=== PATIENT | female | born 1975 | race Caucasian/White ===

== ENCOUNTER → 2018-04-14 16:03 | Outpatient (CLI) | payer BC, SELFPAY ==
[2018-04-14 16:07] LABS: Microscopic, Urine URINE MICROSCOPIC (MICROSCOPIC)
[2018-04-14 16:38] LABS: Appearance,Urine CLEAR (Clear); Bilirubin,Urine Negative (Negative); Blood, Urine 3+ (Negative); Color,Urine YELLOW (Yellow); Glucose,Urine (UA) Negative (Negative); Ketones,Urine Negative (Negative); Leukocyte Esterase,Urine Negative (Negative); Nitrate,Urine POSITIVE (Negative); Protein,Urine TRACE (Negative); Specific Gravity, Urine 1.025 (1.005-1.030); Urobilinogen,Urine 0.2 EU/dl (0.2)
[2018-04-14 16:50] LABS: Bacteria,Urine 1+ /lpf
[2018-04-14 16:51] LABS: Basophils # 0.1 K/mm3 (0-0.2); Basophils % 0.3 % (0.1-2.0); Eosinophils # 0.2 K/mm3 (0.0-0.4); Hematocrit 44.1 % (37.0-47.0); Hemoglobin 12.9 g/dL (12.2-16.2); Lymphocytes # 3.3 K/mm3 (0.7-4.5); Lymphocytes % 20.6 K/mm3 (10-50); Mean Corpuscular HGB Conc 29.2 g/dL (31.8-35.4); Mean Corpuscular Volume 78.9 fl (81-99); Mean Platelet Volume 6.6 fl (7.4-10.4); Monocytes # 0.6 K/mm3 (0.1-1.0); Monocytes % 3.6 % (1.7-9.3); Neutrophils # 11.8 K/mm3 (1.8-7.8); Neutrophils % 74.5 % (37.0-80.0); Platelet Count 406 K/mm3 (142-424); Red Blood Count 5.59 M/mm3 (4.20-5.40); White Blood Count 15.9 K/mm3 (4.8-10.8)
[2018-04-14 16:53] LABS: MANUAL DIFFERENTIAL MANUAL DIFFERENTIAL (MANUAL DIFF)
[2018-04-14 17:42] LABS: Anion Gap 13.6 mEq/L (5-15); Blood Urea Nitrogen 15 mg/dL (7-18); Calcium 9.4 mg/dL (8.5-10.1); Carbon Dioxide 28 mmol/L (21.0-32.0); Chloride 105 mmol/L (98-107); Creatinine,Serum 0.82 mg/dL (0.55-1.02); Estimated Glomerular Filt Rate 76 ml/min (>60); Free T4 (Free Thyroxine) 0.99 ng/dl (0.76-1.46); GFR (African American) 92 ML/MIN (>60); Glucose 113 mg/dL (74-106); Potassium 4.6 mmoL/L (3.5-5.1); Sodium 142 mmol/L (136-145); Thyroid Stimulating Hormone 2.17 uIU/ml (0.358-3.740)
[2018-04-14 19:46] LABS: Eosinophils % 1 % (0-3); Lymphocytes % 19 % (10-50); Monocytes % 4 % (2-9); Neutrophils % 73 % (42-76); Platelet Estimate Normal; RBC Morphology Normal; Total Cells Counted 100
== END ==
PROVIDERS: Visit Provider Internal Medicine
DX: R53.1 Weakness (principal); R42 Dizziness and giddiness; R00.2 Palpitations; R10.9 Unspecified abdominal pain
CPT/HCPCS: 36415; 80048; 81001; 82533; 84439; 84443; 85007; 85025

== ENCOUNTER → 2018-05-12 09:48 | Outpatient (CLI) | payer BC, SELFPAY ==
--- NOTE | 2018-05-12 09:51 | US_ITS ---
US kidney retroperitoneal comp HISTORY: ITS.REASON: RT FLANK PAIN, HEMATURIA ORDERING PHYSICIAN: Juarez Griffin PATIENT AGE: 43 years Comparison: ) 08/16/2017 FINDINGS: Studies compared to previous CT scan abdomen pelvis noncontrast 08/16/2017 RIGHT KIDNEY:Unremarkable. Normal size measuring 11.3 x 4.9 x 5.9 cm appearing sonographically normal except for a nonobstructing calculus upper pole LEFT KIDNEY:Unremarkable except for a nonobstructing calculus lower pole.. Normal size measuring 12.0 x 5.4 x 6.4 cm. Cortical thickness is 1.2 cm. Left kidney appears sonographically normal. OTHER FINDINGS: The spleen appears normal. IMPRESSION: Grossly normal-appearing kidneys with bilateral nontracking calculi noted
== END ==
PROVIDERS: PCP Internal Medicine; Visit Provider Internal Medicine
DX: R31.29 Other microscopic hematuria (principal); R10.9 Unspecified abdominal pain
CPT/HCPCS: 76770

== ENCOUNTER → 2018-05-26 09:51 | Outpatient (CLI) | payer BC, SELFPAY ==
--- NOTE | 2018-05-26 09:59 | XR_ITS ---
XR chest 2V HISTORY: ITS.REASON: ASTHMA FLARE, HEMOPTYSIS ORDERING PHYSICIAN: Juarez Griffin PATIENT AGE: 43 years COMPARISON: 02/05/2018 FINDINGS: There is mild prominence of the cardiac silhouette with mild prominence of left ventricle. No CHF. A loop recorder device is present. No lobar consolidation or collapse. No effusions. No acute bony anomalies. IMPRESSION: Mild cardiomegaly otherwise negative
== END ==
PROVIDERS: PCP Internal Medicine; Visit Provider Internal Medicine
DX: J45.909 Unspecified asthma, uncomplicated (principal); R04.2 Hemoptysis
CPT/HCPCS: 71046

== ENCOUNTER → 2018-06-10 15:22 | Outpatient (CLI) | payer BC, SELFPAY ==
[2018-06-10 15:47] LABS: Troponin I < 0.02 ng/ml (0.00-0.06)
== END ==
PROVIDERS: Visit Provider Internal Medicine
DX: R07.89 Other chest pain (principal); J45.909 Unspecified asthma, uncomplicated; I10 Essential (primary) hypertension
CPT/HCPCS: 36415; 84484; 93005

== ENCOUNTER → 2018-07-28 17:10 | Outpatient (REF) | payer BC, SELFPAY | LOC: LAB 17:10 | PROVIDERS: Visit Provider Internal Medicine | DX: N39.0 Urinary tract infection, site not specified (principal) | CPT/HCPCS: 87086 ==

== ENCOUNTER → 2019-04-27 11:02 | Outpatient (CLI) | payer BC, SELFPAY ==
[2019-04-27 11:54] LABS: Anion Gap 13.7 mEq/L (5-15); Blood Urea Nitrogen 13 mg/dL (7-18); Calcium 8.9 mg/dL (8.5-10.1); Carbon Dioxide 31 mmol/L (21.0-32.0); Chloride 101 mmol/L (98-107); Creatinine,Serum 1.01 mg/dL (0.55-1.02); Estimated Glomerular Filt Rate 59 ml/min (>60); GFR (African American) 72 ML/MIN (>60); Glucose 137 mg/dL (74-106); Potassium 4.7 mmoL/L (3.5-5.1); Sodium 141 mmol/L (136-145)
== END ==
PROVIDERS: Visit Provider Nurse Practitioner Family
DX: R06.09 Other forms of dyspnea (principal); R07.89 Other chest pain; R07.9 Chest pain, unspecified; R42 Dizziness and giddiness; R55 Syncope and collapse
CPT/HCPCS: 36415; 80048

== ENCOUNTER → 2019-04-29 13:20 | Outpatient (CLI) | payer BC, SELFPAY ==
--- NOTE | 2019-04-29 13:21 | CA_ITS ---
PROCEDURE: 2-D M-mode and color Doppler study INDICATIONS FOR THE TEST: Chest painX COPD Heart Murmur Tobacco Smoking Palpitations Fatigue SyncopeX EdemaX Hypertension Diabetes Mellitus Rheumatic Fever SOBXDOEXObesityXHyperlipidemia Family History HD Additional History TDS OBESITY PATIENT INFORMATION HEIGHT: 63 WEIGHT:278 GENDER: Female B/P:156/84 2-D/M-MODE INTERPRETATION: 2-D MEASUREMENTS OBSERVED VALUES IN CMS Right Ventricular Dimension (RVDd) 3.5 Interventricular Septum (Thickness)(IVsd) 1.2 Left Ventricular Internal Dimensions(LVIDd) 5.2 Left Ventricular Posterior Wall (Thickness)(LVPWd) 1.2 Aortic Root 3.2 Aortic Cusp Separation 1.9 Left Atrial Dimensions (LAD) 3.5 2D 1. Left atrium is mildly enlarged, left ventricle is normal size, mild concentric left ventricular hypertrophy, visually estimated ejection fraction 55% with no regional wall motion abnormality. 2. The right atrium and right ventricle are mildly enlarged with normal contractility. 3. The aortic valve is minimally thickened and fibrosed. 4. The mitral and tricuspid valvular grossly normal. 5. The pulmonic valve is poorly visualized. 6. No significant pericardial effusion noted. DOPPLER INTERROGATION: Doppler interrogation of the aortic, mitral and tricuspid valvular presence of mild mitral and tricuspid regurgitation, tricuspid regurgitation jet velocity is inadequate for calculation of the right ventricular systolic pressure, grade 1 diastolic dysfunction seen with tissue Doppler evidence of raised left atrial pressure, inferior vena cava is not well visualized. CONCLUSION: 1. Mild biatrial enlargement, normal left ventricular size, mild concentric left ventricular hypertrophy, visually estimated ejection fraction 55% with no regional wall motion abnormality, grade 1 diastolic dysfunction seen with tissue Doppler evidence of raised left atrial pressure. 2. Mild mitral and tricuspid regurgitation. 3. No significant pericardial effusion noted.
== END ==
PROVIDERS: PCP Internal Medicine; Visit Provider Internal Medicine
DX: R06.09 Other forms of dyspnea (principal); R55 Syncope and collapse; R07.89 Other chest pain; R42 Dizziness and giddiness
CPT/HCPCS: 93308

== ENCOUNTER → 2019-11-23 14:57 | Outpatient (CLI) | payer BC, SELFPAY ==
[2019-11-23 15:05] LABS: Basophils # 0.1 K/mm3 (0-0.2); Basophils % 0.6 % (0.1-2.0); Eosinophils # 0.2 K/mm3 (0.0-0.4); Eosinophils % 2.4 % (0.1-12.0); Hematocrit 31.5 % (37.0-47.0); Hemoglobin 10.3 g/dL (12.2-16.2); Lymphocytes # 2.1 K/mm3 (0.7-4.5); Lymphocytes % 25.4 % (10-50); Mean Corpuscular HGB Conc 32.8 g/dL (31.8-35.4); Mean Corpuscular Hemoglobin 27.2 pg (27.0-31.2); Mean Corpuscular Volume 82.8 fl (81-99); Mean Platelet Volume 8.2 fl (7.4-10.4); Monocytes # 0.3 K/mm3 (0.1-1.0); Monocytes % 3.7 % (1.7-9.3); Neutrophils # 5.6 K/mm3 (1.8-7.8); Neutrophils % 67.9 % (37.0-80.0); Platelet Count 345 K/mm3 (142-424); Red Blood Count 3.81 M/mm3 (4.20-5.40); White Blood Count 8.3 K/mm3 (4.8-10.8)
[2019-11-23 15:21] LABS: Anion Gap 14.3 mEq/L (5-15); Blood Urea Nitrogen 11 mg/dL (7-18); Calcium 8.5 mg/dL (8.5-10.1); Carbon Dioxide 28 mmol/L (21.0-32.0); Chloride 106 mmol/L (98-107); Creatinine,Serum 0.87 mg/dL (0.55-1.02); Estimated Glomerular Filt Rate 70 ml/min (>60); GFR (African American) 85 ML/MIN (>60); Glucose 152 mg/dL (74-106); Magnesium 1.7 mg/dL (1.4-2.2); Potassium 4.3 mmoL/L (3.5-5.1); Sodium 144 mmol/L (136-145)
== END ==
PROVIDERS: PCP Internal Medicine; Visit Provider Internal Medicine
DX: R00.0 Tachycardia, unspecified (principal); I10 Essential (primary) hypertension; N92.0 Excessive and frequent menstruation with regular cycle
CPT/HCPCS: 80048; 83735; 85025

== ENCOUNTER → 2019-12-07 13:23 | Outpatient (CLI) | payer BC, SELFPAY ==
--- NOTE | 2019-12-07 13:23 | US_ITS ---
PROCEDURE: US TRANSVAGINAL CLINICAL INDICATION: US T/V- DUB Dysfunctional uterine bleeding, heavy cycles COMPARISON: No exams were available for comparison FINDINGS: UTERUS: 10cm x 7cmx 5cm with a combined endometrial thickness of 18.8mm LEFT OVARY: [id number] with a volume of 9.2ml. RIGHT OVARY: [id number] with a volume of 11.1ml. Multiple nabothian cysts are present. There is moderate thickening of the endometrium and 18 mm. No uterine mass. 2 cm left ovarian cyst with septation. No cul-de-sac fluid IMPRESSION: Bulky uterus with thickened endometrium Dictated by: Vishal Nieto MD 12/07/2019 19:09 Electronically signed by Vishal Nieto MD in [place] 12/07/2019 19:09
== END ==
PROVIDERS: PCP Internal Medicine; Visit Provider Obstetrics & Gynecology
DX: N93.8 Other specified abnormal uterine and vaginal bleeding (principal)
CPT/HCPCS: 76830

== ENCOUNTER 2020-04-17 10:16 | Emergency (ER) | payer OTHER, SELFPAY ==
[2020-04-17] VITALS (8 sets, daily range): BP systolic 98–145; BP diastolic 45–85; PULSE 55–68; RESP 18; TEMP 36.6; O2SAT 93–97; BMI 49.6
--- NOTE | 2020-04-17 10:16 | ECG_ITS ---
APPROVED REPORT Exam: Resting ECG HR:62 bpm ECG Measurements Heart Rate 62 AXES NC 142 P 48 QRSd 82 QRS 33 QT 416 T 39 QTc 422 <Conclusion> Normal sinus rhythm Normal ECG Electronically signed by : Ahsan Chew, 04/18/2020 17:28:20
--- NOTE | 2020-04-17 10:20 | XR_ITS ---
PROCEDURE: XR CHEST PORTABLE CLINICAL HISTORY: cp COMPARISON: CTAC CTA-CHEST from 05/13/2017 CXR2V XR chest 2V from 02/05/2018 CXR2V XR chest 2V from 05/26/2018 Chest from 04/17/2019 FINDINGS: The patient is markedly obese. This is a somewhat poor inspiratory effort however lung colby are clear of infiltrate. There is mild to moderate generalized cardiomegaly however the vascularity is normal and there is no definite pleural fluid. However the left costophrenic angle is somewhat poorly seen due to combination of the enlarged left ventricle and overlying breast shadow. There monitor lines overlying the chest. IMPRESSION: Cardiomegaly, no definite acute chest pathology noted Dictated by: Dr. Josue Lara MD 04/17/2020 10:[address] Josue Lara MD in [place] 04/17/2020 10:36
--- NOTE | 2020-04-17 10:23 | PC.NURSE ---
Rad at bedside
[2020-04-17 10:29] LABS: Basophils # 0.1 K/mm3 (0-0.2); Basophils % 0.3 % (0.1-2.0); Eosinophils # 0.1 K/mm3 (0.0-0.4); Eosinophils % 0.4 % (0.1-12.0); Hematocrit 38.5 % (37.0-47.0); Hemoglobin 12.7 g/dL (12.2-16.2); Lymphocytes # 4.1 K/mm3 (0.7-4.5); Lymphocytes % 22.5 % (10-50); Mean Corpuscular HGB Conc 33.1 g/dL (31.8-35.4); Mean Corpuscular Volume 81.6 fl (81-99); Mean Platelet Volume 8.6 fl (7.4-10.4); Monocytes # 0.7 K/mm3 (0.1-1.0); Monocytes % 3.7 % (1.7-9.3); Neutrophils # 13.1 K/mm3 (1.8-7.8); Platelet Count 377 K/mm3 (142-424); Red Blood Count 4.72 M/mm3 (4.20-5.40); Red Cell Distribution Width 14.5 % (11.5-17.5)
[2020-04-17 10:31] LABS: MANUAL DIFFERENTIAL MANUAL DIFFERENTIAL (MANUAL DIFF)
[2020-04-17 10:33] LABS: Chloride 103 mmol/L (98-107); Potassium 3.9 mmoL/L (3.5-5.1); Sodium 135 mmol/L (136-145)
[2020-04-17 10:36] LABS: Anion Gap 9.9 mEq/L (5-15); Blood Urea Nitrogen 19 mg/dl (7-17); Calcium 8.5 mg/dl (8.4-10.2); Carbon Dioxide 26 mmol/L (22.0-30.0); Creatinine Clearance Estimated 73 mL/min (50-200); Estimated Glomerular Filt Rate 77 ml/min (>60); GFR (African American) 93 ML/MIN (>60); Glucose 124 mg/dl (74-100)
[2020-04-17 10:39] LABS: Eosinophils % 2 % (0-3); Lymphocytes % 32 % (10-50); Monocytes % 2 % (2-9); Neutrophils % 64 % (42-76); Platelet Estimate Normal; Poikilocytosis 1+; Stomatocytes 1+; Total Cells Counted 100
[2020-04-17 10:51] LABS: Troponin I < 0.01 ng/ml (0.00-0.034)
--- NOTE | 2020-04-17 11:55 | HMH.EDCP ---
ED Disposition Clinical Impression: Chest pain Disposition: Home, Self-Care Condition on Discharge: Good Referrals: Juarez Griffin [Primary Care Provider] - - Critical Care Critical Care Time: No Attestation: On 04/17/20, the high probability of a clinically significant, sudden or life threatening deterioration of the following system(s) required my full and direct attention, intervention and personal management. The time I documented below is in addition to time spent performing reported procedures but includes the following listed in this critical care notation. Medical Decision Making - Medical Records Medical records reviewed: Yes: I reviewed the patient's medical records. - Harjinder Inquiry Pt receiving controlled substance: No Vital Signs: 04/17/20 10:17 04/17/20 10:49 04/17/20 11:29 Temperature 97.9 F Temperature Source Oral Pulse Rate [Apical] 68 68 63 Respiratory Rate 18 18 Blood Pressure [Right Arm] 145/85 H 118/71 127/76 Blood Pressure Mean [Right Arm] 105 86 93 Blood Pressure Source [Right Arm] Automatic Cuff Automatic Cuff Automatic Cuff Blood Pressure Position [Right Arm] Sitting Sitting Sitting 02 Sat by Pulse Oximetry 95 97 95 Oxygen Delivery Method Room Air Room Air Room Air 04/17/20 11:36 04/17/20 12:08 04/17/20 12:41 Temperature Temperature Source Pulse Rate [Apical] 65 59 L 58 L Respiratory Rate Blood Pressure [Right Arm] 127/76 114/67 111/45 L Blood Pressure Mean [Right Arm] 93 82 67 Blood Pressure Source [Right Arm] Automatic Cuff Automatic Cuff Automatic Cuff Blood Pressure Position [Right Arm] Sitting Sitting Sitting 02 Sat by Pulse Oximetry 94 L 95 95 Oxygen Delivery Method Room Air Room Air Room Air 04/17/20 13:10 Temperature Temperature Source Pulse Rate [Apical] 55 L Respiratory Rate Blood Pressure [Right Arm] 98/57 L Blood Pressure Mean [Right Arm] 70 Blood Pressure Source [Right Arm] Automatic Cuff Blood Pressure Position [Right Arm] Sitting 02 Sat by Pulse Oximetry 93 L Oxygen Delivery Method Room Air - Lab Data Lab results reviewed: Yes: I reviewed the patient's lab results. Lab Results 04/17/20 10:20: WBC 18.0 H, RBC 4.72, Hgb 12.7, Hct 38.5, MCV 81.6, MCH 27.0, MCHC 33.1, RDW 14.5, Plt Count 377, MPV 8.6, Neut % (Auto) 73.0, Lymph % (Auto) 22.5, Waldo % (Auto) 3.7, Eos % (Auto) 0.4, Baso % (Auto) 0.3, Neut # (Auto) 13.1 H, Lymph # (Auto) 4.1, Waldo # (Auto) 0.7, Eos # (Auto) 0.1, Baso # (Auto) 0.1, Total Counted 100, Neutrophils % (Manual) 64, Lymphocytes % (Manual) 32, Monocytes % (Manual) 2, Eosinophils % (Manual) 2, Platelet Estimate Normal, Poikilocytosis 1+, Stomatocytes 1+ 04/17/20 10:20: Sodium 135 L, Potassium 3.9, Chloride 103, Carbon Dioxide 26, Anion Gap 9.9, BUN 19 H, Creatinine 0.80, Estimated Creat Clear 73, Estimated GFR 77, Est GFR ( Amer) 93, Glucose 124 H, Calcium 8.5, Troponin I < 0.01 04/17/20 12:26: Troponin I < 0.01 Result diagrams: 04/17/20 10:20 04/17/20 10:20 Orders (Tests/Meds): ED MEDICATIONS Discontinued Medications Generic Name Dose Route Start Last Admin Trade Name Freq PRN Reason Stop Dose Admin Morphine Sulfate 4 mg 04/17/20 11:24 04/17/20 11:24 Morphine 4mg/Ml Syringe IV 04/17/20 11:25 4 mg ONCE ONE Administration ORDERS Category Date Time Status Troponin I Q3H Lab 04/17/20 16:30 Ordered UA [Urinalysis and Microscopic] Stat Lab 04/17/20 11:34 Ordered - ECG Data Tracing #1 I reviewed this ECG and interpreted as documented below: Normal Sinus Rhythm: Yes - ELDA Score for Non-Stemi Age of Patient: 40-49 years old Heart Rate: 70-89 bpm Systolic Blood Pressure: 100-119 mmHg Serum Creatinine: 0.80-1.19 mg/dl CHF Killip Class: I-No CHF Other Risk Factors: None Non-Stemi Risk Score: 84 Risk Stratification: 1-108 = Low Risk Medical Decision Narrative: Patient had 2 sets of troponins done here in the ED and both are negative. She also had [address] c
--- NOTE | 2020-04-17 12:24 | PC.NURSE ---
lab at bedside for repeat trop
--- NOTE | 2020-04-17 12:39 | ECG_ITS ---
APPROVED REPORT Exam: Resting ECG HR:58 bpm ECG Measurements Heart Rate 58 AXES WI 144 P 31 QRSd 76 QRS 24 QT 424 T 34 QTc 416 <Conclusion> Sinus bradycardia Otherwise normal ECG Electronically signed by : Ahsan Chew, 04/18/2020 17:28:13
[2020-04-17 12:53] LABS: Troponin I < 0.01 ng/ml (0.00-0.034)
== END 2020-04-17 13:46 | disposition home or self-care (01) ==
PROVIDERS: Emergency Provider Family Medicine; PCP Internal Medicine
DX: R07.9 Chest pain, unspecified (principal); I10 Essential (primary) hypertension; R00.2 Palpitations; Z88.6 Allergy status to analgesic agent
CPT/HCPCS: 36415; 71045; 80048; 84484; 85007; 85025; 93005; 96374; 99284

== ENCOUNTER 2020-06-06 09:43 | Emergency (ER) | payer OTHER, SELFPAY ==
[2020-06-06 09:45] VITALS: BP 148/92; PULSE 75; RESP 18; TEMP 37.1; O2SAT 95; BMI 49.6
--- NOTE | 2020-06-06 09:58 | XR_ITS ---
PROCEDURE: XR CHEST 2V CLINICAL HISTORY: soa Shortness of air and cough COMPARISON: CT CTAC CTA-CHEST from 05/13/2017 CR CXR2V XR chest 2V from 05/26/2018 CR Chest from 04/17/2019 CR XR CHEST PORTABLE from 04/17/2020 FINDINGS: There is borderline cardiomegaly without failure. Loop recorder device is present. The lungs are clear without infiltrates, suspicious nodules, or pleural effusions. No acute bony abnormalities. IMPRESSION: Borderline cardiomegaly, no acute finding Dictated b Vishal Nieto MD 06/06/2020 11:09 Vishal Nieto MD in [place] 06/06/2020 11:09
--- NOTE | 2020-06-06 10:14 | HMH.EDSOB ---
ED Disposition Clinical Impression: Asthma with exacerbation, Viral URI with cough Disposition: Home, Self-Care Condition on Discharge: Good Instructions: DI for Chronic Bronchitis Prescriptions: Azithromycin 250 mg PO DAILY 5 Days #6 tab Transmission Status: Pending to [facility] Cholecalciferol (Vitamin D3) [Decara] 50,000 unit PO WEEKLY 30 Days #4 cap Transmission Status: Pending to [facility] Losartan Potassium 50 mg PO DAILY 30 Days #30 tab Transmission Status: Pending to [facility] methylPREDNISolone [Medrol 4mg tab] 4 mg PO DIRECTED #21 tab Transmission Status: Pending to [facility] Referrals: Juarez Griffin [Primary Care Provider] - - Critical Care Critical Care Time: No Attestation: On 06/06/20, the high probability of a clinically significant, sudden or life threatening deterioration of the following system(s) required my full and direct attention, intervention and personal management. The time I documented below is in addition to time spent performing reported procedures but includes the following listed in this critical care notation. Medical Decision Making - Medical Records Medical records reviewed: Yes: I reviewed the patient's medical records. - Harjinder Inquiry Pt receiving controlled substance: No Vital Signs: 06/06/20 09:45 Temperature 98.8 F Temperature Source Oral Pulse Rate [Right] 75 Respiratory Rate 18 Blood Pressure [Right Arm] 148/92 H Blood Pressure Mean [Right Arm] 110 02 Sat by Pulse Oximetry 95 - Lab Data Lab results reviewed: Yes: I reviewed the patient's lab results. Orders (Tests/Meds): ORDERS Category Date Time Status XR chest 2V Stat Exams 06/06/20 09:58 Ordered BNP [Brain Natriuretic Peptide] Stat Lab 06/06/20 09:58 Ordered Complete Blood Count Auto Diff Stat Lab 06/06/20 09:58 Ordered Comprehensive Metabolic Panel Stat Lab 06/06/20 09:58 Ordered Coronavirus 19 Swab (OUTPT) Routine Lab 06/06/20 09:58 Ordered Lactic Acid Stat Lab 06/06/20 09:58 Ordered Blood Culture Stat Micro 06/06/20 09:58 Ordered Resp/SOB HPI - General Chief Complaint: Shortness of Breath/Dyspnea Stated Complaint: Cough, weakness, chills, SOB Time Seen by Provider: 06/06/20 10:14 Mode of Arrival: Ambulatory Limitations: No Limitations Description of Symptoms (Recalled from ER Triage Doc. by RN): C/O cough, fever, soa, body aches, chills, fatigue and nausea. Denies any contact with COVID19 - History of Present Illness A 45-year-old female presents the emergency department with cough, shortness of breath, body aches, and subjective fever. She states her symptoms started about 2 days ago and progressively got worse. Patient denies any sore throat or headache. Patient also denies any objective fevers. Patient also denies any chest pain. Patient states that she usually gets these types of illnesses frequently and she has bronchitis. However the only difference today is that she has body aches. No known exposures to COVID-19. - Related Data Home Medications Medication Instructions Recorded Confirmed Albuterol Sulfate [Albuterol 2.5 mg IH NEEDED PRN 04/17/19 05/30/20 0.083% 2.5mg/3mL neb] Fluticasone/Vilanterol [Breo 1 inh IH DAILY 04/17/19 05/30/20 Ellipta 200-25 Mcg INH] Montelukast Sodium [Montelukast 10 mg PO HS 04/17/19 05/30/20 10mg Tab] Tiotropium [place] [Spiriva 1 puff IH DAILY 04/17/19 05/30/20 18mcg/puff inhaler] ferrous sulfate 325 mg (65 mg 325 mg PO DAILY 02/22/20 05/30/20 iron) tablet nitroglycerin 0.4 mg sublingual 0.4 mg SUBLINGUAL Q5-15M PRN tab 02/22/20 05/30/20 tablet omeprazole 40 mg capsule,delayed 20 mg PO HS cap 02/22/20 05/30/20 release spironolactone 50 mg tablet 50 mg PO DAILY tab 02/22/20 05/30/20 tizanidine 4 mg capsule 4 mg PO QHS PRN 02/22/20 05/30/20 tramadol 100 mg tablet,extended 50 mg PO DAILY PRN tab 02/22/20 05/30/20 release 24 hr Furosemide
--- NOTE | 2020-06-06 10:30 | ECG_ITS ---
APPROVED REPORT Exam: Resting ECG HR:69 bpm ECG Measurements Heart Rate 69 AXES [place] 152 P 27 QRSd 80 QRS 34 QT 422 T 35 QTc 452 <Conclusion> Normal sinus rhythm Incomplete RBBB Otherwise a normal ECG Electronically signed by : Juarez Griffin, 06/06/2020 17:04:44
[2020-06-06 10:39] LABS: Basophils # 0.1 K/mm3 (0-0.2); Basophils % 0.6 % (0.1-2.0); Eosinophils # 0.3 K/mm3 (0.0-0.4); Eosinophils % 2.6 % (0.1-12.0); Hematocrit 34.2 % (37.0-47.0); Hemoglobin 11.2 g/dL (12.2-16.2); Lymphocytes # 2.1 K/mm3 (0.7-4.5); Lymphocytes % 20.8 % (10-50); Mean Corpuscular HGB Conc 32.7 g/dL (31.8-35.4); Mean Corpuscular Hemoglobin 25.7 pg (27.0-31.2); Mean Corpuscular Volume 78.5 fl (81-99); Mean Platelet Volume 9.1 fl (7.4-10.4); Monocytes # 0.4 K/mm3 (0.1-1.0); Monocytes % 3.9 % (1.7-9.3); Neutrophils # 7.2 K/mm3 (1.8-7.8); Neutrophils % 72.1 % (37.0-80.0); Platelet Count 348 K/mm3 (142-424); Red Blood Count 4.36 M/mm3 (4.20-5.40); Red Cell Distribution Width 14.4 % (11.5-17.5)
[2020-06-06 10:43] LABS: Alanine Aminotransferase 35 U/L (12-78); Albumin Level 3.9 g/dl (3.5-5.0); Albumin/Globulin Ratio 1.2 (1.1-1.8); Alkaline Phosphatase 94 U/L (38-126); Anion Gap 12.9 mEq/L (5-15); Aspartate Amino Transferase 33 U/L (14-36); Bilirubin,Total 0.5 mg/dl (0.2-1.3); Blood Urea Nitrogen 11 mg/dl (7-17); Calcium 9.2 mg/dl (8.4-10.2); Carbon Dioxide 31 mmol/L (22.0-30.0); Chloride 98 mmol/L (98-107); Creatinine Clearance Estimated 82 mL/min (50-200); Estimated Glomerular Filt Rate 90 ml/min (>60); GFR (African American) 109 ML/MIN (>60); Globulin 3.2 g/dL (1.3-3.2); Glucose 131 mg/dl (74-100); Potassium 3.9 mmoL/L (3.5-5.1); Sodium 138 mmol/L (136-145); Total Protein,Serum 7.1 g/dl (6.3-8.2)
[2020-06-06 10:45] VITALS: BP 120/83; PULSE 66; RESP 17; O2SAT 95
[2020-06-06 10:46] LABS: Lactic Acid 1.9 mmol/L (0.7-2.1)
[2020-06-06 10:52] LABS: NT Pro Brain Natriuretic Pep. 240 pg/mL (0-125)
[2020-06-06 11:10] LABS: Troponin I < 0.01 ng/ml (0.00-0.034)
[2020-06-06 11:27] VITALS: BP 136/60; PULSE 68; RESP 17; TEMP 36.7; O2SAT 95
== END 2020-06-06 11:27 | disposition home or self-care (01) ==
PROVIDERS: Emergency Provider Family Medicine; PCP Internal Medicine
DX: J45.901 Unspecified asthma with (acute) exacerbation (principal); I10 Essential (primary) hypertension; R00.2 Palpitations; Z79.899 Other long term (current) drug therapy; Z03.818 Encounter for observation for suspected exposure to other biological agents ruled out
CPT/HCPCS: 71046; 80053; 83605; 83880; 84484; 85025; 87040; 93005; 99284; U0003

== ENCOUNTER → 2020-06-23 06:17 | Outpatient (CLI) | payer OTHER, SELFPAY ==
--- NOTE | 2020-06-23 06:18 | CA_ITS ---
APPROVED REPORT EXAM: Comprehensive 2D, Doppler, and color-flow Echocardiogram Bilingual Speech Language Pathologist: Cyndi Santiago CRT Ht: 5 ft 3 in Wt: 285lbs BSA: 2.25 BP: 136/76 mmHg Indications: Chest Pressure, Shortness of Breath, Obesity, Syncope, loop recorder M-Mode Dimensions RVDd 3.51 cm (0.9-2.6) LVDd 5.19 cm (3.5-5.7) LVDs 4.01 cm (3.5-5.7) IVSd 1.72 cm (0.6-1.1) PWd 0.80 cm (0.6-1.1) EF (Teich) 45.40% FS 22.70% EDV (Teich) 128.90 mL ESV (Teich) 70.40 mL LV Diastology E/A Ratio 0.68 Mitral Valve MV A Velocity 107.00 (40-130 cm/s) Left Ventricle Left atrium is mildly enlarged, left ventricle is normal size, mild concentric left ventricular hypertrophy, visually estimated ejection fraction 55% with no regional wall motion abnormality, grade 1 diastolic dysfunction seen without tissue Doppler evidence of raise left atrial pressure. Right Ventricle Right atrium and right ventricle is qualitatively normal size and contractility. Aortic Valve Aortic valve is minimally thickened and fibrosed, there is no aortic stenosis or aortic insufficiency. Mitral Valve Mitral valve is grossly normal, there is mild mitral regurgitation. Tricuspid Valve Tricuspid valve grossly normal, there is mild tricuspid regurgitation, tricuspid regurgitation jet velocity is inadequate for calculation of the right ventricular systolic pressure. Pulmonic Valve Pulmonic valve is poorly visualized. Great Vessels Aortic root is normal size. Pericardium No significant pericardial effusion noted. Conclusion 1. Mildly enlarged left atrium, normal left ventricular size, mild concentric left ventricular hypertrophy, visually estimated ejection fraction 55% with no regional wall motion abnormality, grade 1 diastolic dysfunction seen without tissue Doppler evidence of raise left atrial pressure. 2. Mild mitral and tricuspid regurgitation. 3. No significant pericardial effusion noted. Electronically signed by : Mirza Bowser, 06/23/2020 15:06:25
--- NOTE | 2020-06-23 06:23 | NM_ITS ---
APPROVED REPORT Exam: Nuclear Stress Test Indication: chest pain..short of breath..palpitations..fatigue Patient Location: Outpatient Stress Tech: Victoria Trisha [place] Tech:DOMINICK Looney RT(R)(N) Ht: 5 ft 3 in Wt: 280 lbs Bra Size: 42dd HR: 79 bpm BP: 145/80 mmHg BSA: 2.23 m2 BMI: 49.5 History: chest pain..short of breath..palpitations..fatigue Procedure: Patient received a 0.4 mg of intravenous Lexiscan, resting heart rate 79 bpm, resting blood pressure 145/80 mmHg, with Lexiscan maximum heart rate achived was 104 bpm which is Less than 85 % of the maximum predicted heart rate and blood pressure was 118/56 mmHg. Electrocardiogram Resting electrocardiogram shows sinus rhythm, with Lexiscan there is less than 1.[address] segment depression noted from the baseline EKG. The EKG portion of the Lexiscan Myoview is nondiagnostic. Cardiac Stress and Resting SPECT Images: Cardiac Stress and Resting SPECT images were obtained using technetium 99m Myoview 29.5 mCi stress and 10.13 mCi at rest. Gated SPECT for the analysis of segmental wall motion and calculation of the ejection fraction also done. Cardiac stress and resting SPECT images show mild fixed defect in the anterior wall with normal gayla gated SPECT is likely secondary to soft tissue attenuation, no reversible ischemia seen. Computer derived ejection fraction is over 65% with no regional wall motion abnormality, right ventricle is normal size and contractility. Conclusion: 1. The EKG portion of the Lexiscan Myoview is nondiagnostic. 2. No scintigraphic evidence of reversible ischemia seen, computer derived ejection fraction is over 65% with no regional wall motion abnormality, right ventricle is normal size and contractility. 3. Likely normal Lexiscan Myoview study. Electronically signed by : Mirza Bowser, 06/23/2020 12:18:10
--- NOTE | 2020-06-23 06:23 | CA_ITS ---
APPROVED REPORT Exam: Pharmacologic Technologist: Victoria Rico Ht: 5 ft 3 in Wt: 280 lbs BSA: 2.23 m2 HR: 77 bpm BP: 145/80 mmHg Rhythm: NSR, early repolarization changes, low voltage QRS Medical History Medical History: HTN Medications: Omeprazole,,,,, Ferrous sulfate,,,,, Duoneb,,,,, Lasix,,,,, Albuterol,,,,, Tramadol,,,,, SpirOLACTONE,,,,, Montelukast,,,,, ProMETHAZINE,,,,, Zanaflex,,,,, Ibuprofen,,,,, Nitro,,,,, Cardiac Risk Factors: FHX of CAD, HTN Stress Test Details Test: LEXISCAN HR Resting HR: 76 bpm Max Heart Rate (APMHR): 173 bpm Max HR Achieved: 108 bpm Target HR (85% APMHR): 147 bpm % of APMHR: 62 Recovery HR: 88 bpm BP Resting BP: 145/80 mmHg Max BP: 145/80 mmHg Recovery BP: 130.0/57.0 mmHg ECG Resting ECG: NSR, early repolarization changes, low voltage QRS Clinical Exercise duration: 04:16 min Highest Stage Achieved: Exercise capacity: 1.0 METs Stress ECG Conclusion During Lexiscan infusion Pt experienced SOB, nausea, malaise, mild chest tightness. No arrhythmia/ectopy. No significant ST-T changes. Unremarkable Lexiscan stress. Myoview images reported separately. Test Summary RECOVERY 04:09 . . 87 . 127/ 59 . . REST 04:04 . . 76 . 145/ 80 . . Stage 1 . . . . . . . Cardiolite injected Stage 1 01:00 . . 107 . . . . Stage 2 01:00 . . 102 . 118/ 56 . . Stage 3 01:00 . . 95 . . . . Stage 4 01:00 . . 91 . 115/ 55 . . Stage 4 01:16 . . 89 . 115/ 55 . Stop exercise at 04:16 RECOVERY 01:00 . . 95 . 119/ 59 . . RECOVERY 02:00 . . 86 . 119/ 59 . . RECOVERY 03:00 . . 83 . 130/ 57 . . RECOVERY 04:00 . . 89 . 127/ 59 . . RECOVERY 04:09 . . 87 . 127/ 59 . . Electronically signed by : Mirza Bowser, 06/23/2020 12:14:31
--- NOTE | 2020-06-23 08:47 | HMH.ITSHM ---
Current Home Medications as stated by this patient Lissy Valdez or front desk representative. [] albuteol spironlctoe omeprazole lasix nitro tranadol tizanidiine
== END ==
PROVIDERS: PCP Internal Medicine; Visit Provider Nurse Practitioner Family
DX: R07.89 Other chest pain (principal); R06.02 Shortness of breath
CPT/HCPCS: 78452; 93017; 93306; A9502; J2785

== ENCOUNTER 2020-07-22 21:43 | Emergency (ER) | payer OTHER, SELFPAY ==
[2020-07-22 21:54] VITALS: BP 141/96; PULSE 114; RESP 15; TEMP 36.9; O2SAT 97; BMI 49.6
--- NOTE | 2020-07-22 21:58 | XR_ITS ---
PROCEDURE: XR SHOULDER RT MIN 2V CLINICAL INDICATION: injury Pain following injury COMPARISON: No exams were available for comparison FINDINGS: No fracture or dislocation. No lytic or blastic change. There is normal mineralization. The joint spaces are well-preserved. No significant degenerative/arthritic changes. No erosive changes evident. Other findings:None. IMPRESSION: No acute findings. Dictated by: Visahl Nieto MD 07/23/2020 06:01 Vishla Nieto MD in [place] 07/23/2020 06:01
--- NOTE | 2020-07-22 22:30 | HMH.EDGENADL ---
ED Disposition Clinical Impression: Shoulder pain Qualifiers: Chronicity: acute Laterality: right Qualified Code(s): M25.511 - Pain in right shoulder Disposition: Home, Self-Care Condition on Discharge: Good Instructions: Sprain Referrals: Juarez Griffin [Primary Care Provider] - - Critical Care Critical Care Time: No Attestation: On 07/22/20, the high probability of a clinically significant, sudden or life threatening deterioration of the following system(s) required my full and direct attention, intervention and personal management. The time I documented below is in addition to time spent performing reported procedures but includes the following listed in this critical care notation. Medical Decision Making - Medical Records Medical records reviewed: Yes: I reviewed the patient's medical records. - Harjinder Inquiry Pt receiving controlled substance: No Vital Signs: 07/22/20 21:54 Temperature 98.5 F Temperature Source Oral Pulse Rate [Left Brachial] 114 H Respiratory Rate 15 Blood Pressure [Left Arm] 141/96 H Blood Pressure Mean [Left Arm] 111 Blood Pressure Source [Left Arm] Automatic Cuff Blood Pressure Position [Left Arm] Sitting 02 Sat by Pulse Oximetry 97 Oxygen Delivery Method Room Air Orders (Tests/Meds): ED MEDICATIONS Discontinued Medications Generic Name Dose Route Start Last Admin Trade Name Freq PRN Reason Stop Dose Admin Ketorolac Tromethamine 30 mg 07/22/20 22:09 07/22/20 22:18 Toradol 30mg/Ml Vial IM 07/22/20 22:10 30 mg ONCE ONE Administration ORDERS Category Date Time Status XR shoulder RT min 2V Stat Exams 07/22/20 21:58 Taken Medical Decision Narrative: 45-year-old female presenting after shoulder injury. Patient has no trauma, x-ray obtained negative for acute fracture. Patient either has a grade 1 AC joint separation injury versus rotator cuff injury as patient had tenderness over AC joint on right side as well as empty can test positive. Patient was amenable to IM ketorolac, on repeat assessmnet patient's pain improved and patient discharged with sling, follow-up with primary care doctor for further work-up. General Adult HPI - General Chief complaint: Extremity Injury, Upper Stated complaint: right shoulder pain Time Seen by Provider: 07/22/20 22:00 Mode of Arrival: Ambulatory Limitations: No Limitations Description of Symptoms (Recalled from ER Triage Doc. by RN): Pt reports that she was playing with a puppy and her right shoulder got pulled back too far . Reports pain in the top of the right shoulder and is gaurding it. - History of Present Illness HPI narrative: 45-year-old female presenting after injury. Patient had her [place] Billy on the leash, dog pulled, and injured her right shoulder. Patient did not fall, no loss of conscious, no head trauma. Patient does not any chest pain, abdominal pain, pain isolated to right shoulder, range of motion largely intact per patient with difficulty secondary due to pain. Is on steroids denies history of shoulder problems previously. - Related Data Home Medications Medication Instructions Recorded Confirmed Albuterol Sulfate [Albuterol 2.5 mg IH NEEDED PRN 04/17/19 07/22/20 0.083% 2.5mg/3mL neb] Montelukast Sodium [Montelukast 10 mg PO HS 04/17/19 07/22/20 10mg Tab] Tiotropium [place] [Spiriva 1 puff IH DAILY 04/17/19 07/22/20 18mcg/puff inhaler] ferrous sulfate 325 mg (65 mg 325 mg PO DAILY 02/22/20 07/22/20 iron) tablet nitroglycerin 0.4 mg sublingual 0.4 mg SUBLINGUAL Q5-15M PRN tab 02/22/20 07/22/20 tablet omeprazole 40 mg capsule,delayed 20 mg PO HS cap 02/22/20 07/22/20 release spironolactone 50 mg tablet 50 mg PO DAILY tab 02/22/20 07/22/20 tizanidine 4 mg capsule 4 mg PO QHS PRN 02/22/20 07/22/20 tramadol 100 mg tablet,extended 50 mg PO DAILY PRN tab 02/22/20 07/22/20 release 24 hr Furosemide [Furosemide 40MG tAB*] 40 mg PO DAILY 04/17/2006/29
[2020-07-22 22:39] VITALS: BP 141/87; PULSE 87; RESP 16; TEMP 36.9; O2SAT 98
== END 2020-07-22 22:40 | disposition home or self-care (01) ==
PROVIDERS: Emergency Provider Emergency Medicine; PCP Internal Medicine
DX: M25.511 Pain in right shoulder (principal); I10 Essential (primary) hypertension; R00.0 Tachycardia, unspecified; Z79.899 Other long term (current) drug therapy
CPT/HCPCS: 73030; 90471; 99283

== ENCOUNTER → 2020-09-27 14:06 | Outpatient (CLI) | payer OTHER, SELFPAY | PROVIDERS: PCP Internal Medicine; Visit Provider Internal Medicine | DX: G47.30 Sleep apnea, unspecified (principal) ==

== ENCOUNTER → 2020-10-18 13:00 | Outpatient (CLI) | payer OTHER, SELFPAY ==
[2020-10-18 15:08] LABS: Coronavirus 19 IgG Antibody Negative (Negative)
[2020-10-18 15:09] LABS: Coronavirus 19 IgM Antibody Negative (Negative)
== END ==
PROVIDERS: PCP Internal Medicine; Visit Provider Internal Medicine
DX: Z01.818 Encounter for other preprocedural examination (principal); Z03.818 Encounter for observation for suspected exposure to other biological agents ruled out; G47.33 Obstructive sleep apnea (adult) (pediatric); I10 Essential (primary) hypertension; R40.0 Somnolence; J44.9 Chronic obstructive pulmonary disease, unspecified; E66.9 Obesity, unspecified
CPT/HCPCS: 36415; 86328; 95810

== ENCOUNTER 2021-04-22 21:08 | Emergency (ER) | payer OTHER, SELFPAY ==
[2021-04-22] VITALS (7 sets, daily range): BP systolic 99–142; BP diastolic 69–117; PULSE 74–95; RESP 14–24; TEMP 36.6; O2SAT 95–97; BMI 49.6
--- NOTE | 2021-04-22 21:08 | ECG_ITS ---
APPROVED REPORT Exam: Resting ECG HR:73 bpm ECG Measurements Heart Rate 73 AXES OR 148 P 35 QRSd 82 QRS 37 QT 390 T 54 QTc 429 Conclusion Normal sinus rhythm Normal ECG Electronically signed by : Ahsan Chew, 04/24/2021 17:33:12
--- NOTE | 2021-04-22 21:23 | XR_ITS ---
PROCEDURE INFORMATION: Exam: XR Chest Exam date and time: 04/22/2021 9:23 PM Age: 45 years old Clinical indication: Shortness of breath; Chest pressure; Prior surgery; Surgery date: 6+ months; Surgery type: Loop recorder; Patient HX: Chest pain, SOA TECHNIQUE: Imaging protocol: XR of the chest. Views: 1 view. COMPARISON: CR XR CHEST 2V 06/06/2020 10:04 AM FINDINGS: Lungs: Mild hypoinflation with associated central vascular crowding and subsegmental perihilar atelectasis. No airspace consolidation. No pulmonary edema. Pleural spaces: Slight blunting of the left costophrenic angle is probably due to overlying tissues. No definite pleural effusion. No pneumothorax. Heart/Mediastinum: Borderline enlarged, similar to prior. Loop recorder faintly visualized. Bones/joints: Unremarkable. IMPRESSION: Mild hypoinflation. Otherwise negative.
[2021-04-22 21:31] LABS: Basophils # 0.1 K/mm3 (0-0.2); Basophils % 0.7 % (0.1-2.0); Eosinophils # 0.3 K/mm3 (0.0-0.4); Eosinophils % 1.9 % (0.1-12.0); Hematocrit 35.3 % (37.0-47.0); Hemoglobin 11.4 g/dL (12.2-16.2); Lymphocytes # 3.6 K/mm3 (0.7-4.5); Lymphocytes % 27.2 % (10-50); Mean Corpuscular HGB Conc 32.4 g/dL (31.8-35.4); Mean Corpuscular Hemoglobin 24.9 pg (27.0-31.2); Mean Platelet Volume 7.9 fl (7.4-10.4); Monocytes # 0.5 K/mm3 (0.1-1.0); Neutrophils # 8.9 K/mm3 (1.8-7.8); Neutrophils % 66.2 % (37.0-80.0); Platelet Count 444 K/mm3 (142-424); Red Blood Count 4.59 M/mm3 (4.20-5.40); Red Cell Distribution Width 16.1 % (11.5-17.5); White Blood Count 13.4 K/mm3 (4.8-10.8)
[2021-04-22 21:36] LABS: Alanine Aminotransferase 42 U/L (12-78); Albumin Level 4.6 g/dl (3.5-5.0); Albumin/Globulin Ratio 1.3 (1.1-1.8); Alkaline Phosphatase 78 U/L (38-126); Aspartate Amino Transferase 42 U/L (14-36); Bilirubin,Total 0.4 mg/dl (0.2-1.3); Blood Urea Nitrogen 10 mg/dl (7-17); Calcium 9.4 mg/dl (8.4-10.2); Carbon Dioxide 28 mmol/L (22.0-30.0); Chloride 99 mmol/L (98-107); Creatinine Clearance Estimated 82 mL/min (50-200); Estimated Glomerular Filt Rate 90 ml/min (>60); GFR (African American) 109 ML/MIN (>60); Globulin 3.6 g/dL (1.3-3.2); Glucose 119 mg/dl (74-100); Sodium 139 mmol/L (136-145); Total Protein,Serum 8.2 g/dl (6.3-8.2)
[2021-04-22 21:41] LABS: C-Reactive Protein 5.1 mg/L (0-4)
[2021-04-22 21:48] LABS: Coronavirus 19, PCR Not Detected (NotDetected); Influenza A, PCR Not Detected (NotDetected); Influenza B, PCR Not Detected (NotDetected)
[2021-04-22 21:51] LABS: Troponin I < 0.01 ng/ml (0.00-0.034)
[2021-04-22 21:55] LABS: Erythrocyte Sedimentation Rate 58 mm/hr (0-20); Procalcitonin 0.063 ng/mL (0.0-2.0)
--- NOTE | 2021-04-22 22:03 | HMH.EDCP ---
ED Disposition Clinical Impression: Chest pain Qualifiers: Chest pain type: other chest pain Qualified Code(s): R07.89 - Other chest pain Disposition: Home, Self-Care Condition on Discharge: Good Instructions: DI for Chest Pain Additional Instructions: see card and pcp saturday Referrals: Juarez Griffin [Primary Care Provider] - - Critical Care Critical Care Time: No Attestation: On 04/22/21, the high probability of a clinically significant, sudden or life threatening deterioration of the following system(s) required my full and direct attention, intervention and personal management. The time I documented below is in addition to time spent performing reported procedures but includes the following listed in this critical care notation. Medical Decision Making - Medical Records Medical records reviewed: Yes: I reviewed the patient's medical records. - Harjinder Inquiry Pt receiving controlled substance: No Vital Signs: 04/22/21 21:09 04/22/21 21:32 04/22/21 22:00 Temperature 97.8 F Temperature Source Oral Pulse Rate 74 81 Pulse Rate [Right] 95 H Respiratory Rate 18 20 14 Blood Pressure 108/87 L 131/80 Blood Pressure [Right Arm] 140/95 H Blood Pressure Mean Blood Pressure Mean [Right Arm] 110 Blood Pressure Source 02 Sat by Pulse Oximetry 97 97 96 04/22/21 22:31 04/22/21 23:01 04/22/21 23:18 Temperature Temperature Source Pulse Rate 76 87 90 Pulse Rate [Right] Respiratory Rate 18 18 24 Blood Pressure 121/71 142/117 H 107/69 L Blood Pressure [Right Arm] Blood Pressure Mean 94 125 Blood Pressure Mean [Right Arm] Blood Pressure Source 02 Sat by Pulse Oximetry 95 04/22/21 23:30 04/23/21 00:00 04/23/21 00:12 Temperature Temperature Source Pulse Rate 86 85 Pulse Rate [Right] Respiratory Rate 22 21 Blood Pressure 99/69 L 90/52 L 90/58 L Blood Pressure [Right Arm] Blood Pressure Mean Blood Pressure Mean [Right Arm] Blood Pressure Source Manual Cuff/ Auscultation 02 Sat by Pulse Oximetry 95 94 L - Lab Data Lab results reviewed: Yes: I reviewed the patient's lab results. Lab Results 04/22/21 21:15: WBC 13.4 H, RBC 4.59, Hgb 11.4 L, Hct 35.3 L, MCV 77.0 L, MCH 24.9 L, MCHC 32.4, RDW 16.1, Plt Count 444 H, MPV 7.9, Neut % (Auto) 66.2, Lymph % (Auto) 27.2, [place] % (Auto) 4.0, Eos % (Auto) 1.9, Baso % (Auto) 0.7, Neut # (Auto) 8.9 H, Lymph # (Auto) 3.6, [place] # (Auto) 0.5, Eos # (Auto) 0.3, Baso # (Auto) 0.1, ESR 58 H 04/22/21 21:15: Sodium 139, Potassium 4.0, Chloride 99, Carbon Dioxide 28, Anion Gap 16.0 H, BUN 10, Creatinine 0.70, Estimated Creat Clear 82, Estimated GFR 90, Est GFR ( Amer) 109, Glucose 119 H, Calcium 9.4, Total Bilirubin 0.4, AST 42 H, ALT 42, Alkaline Phosphatase 78, Troponin I < 0.01, C-Reactive Protein 5.1 H, Total Protein 8.2, Albumin 4.6, Globulin 3.6 H, Albumin/Globulin Ratio 1.3, Procalcitonin 0.063 04/22/21 21:43: SARS-CoV-2 (PCR) Not detected, Influenza A Untype (PCR) Not detected, Influenza Type B (PCR) Not detected 04/23/21 00:19: Troponin I < 0.01 Result diagrams: 04/22/21 21:15 04/22/21 21:15 Orders (Tests/Meds): ED MEDICATIONS Generic Name Dose Route Start Last Admin Trade Name Freq PRN Reason Stop Dose Admin Sodium Chloride 1,000 mls @ 999 mls/hr 04/22/21 21:30 04/22/21 21:37 Sod Chlor 0.9% 1000ml Bag IV 04/22/21 22:30 999 mls/hr .Q1H1M ARINA Administration Sodium Chloride 1,000 mls @ 999 mls/hr 04/23/21 00:30 Sod Chlor 0.9% 1000ml Bag IV 04/23/21 01:30 .Q1H1M ARINA Discontinued Medications Generic Name Dose Route Start Last Admin Trade Name Freq PRN Reason Stop Dose Admin Famotidine 20 mg 04/23/21 00:08 04/23/21 00:11 Famotidine 20mg/2ml Vial IV 04/23/21 00:09 20 mg ONCE ONE Administration Iopamidol 70 ml 04/23/21 00:59 04/23/21 01:00 Iopamidol-370 (76%);100ml Bottle IV 04/23/21 01:00 70 ml ONCE ONE Administration Metoclopramide HCl 10 m
[2021-04-23] VITALS (7 sets, daily range): BP systolic 90–134; BP diastolic 52–75; PULSE 78–85; RESP 16–21; TEMP 36.7; O2SAT 94–97
--- NOTE | 2021-04-23 00:26 | CT_ITS ---
PROCEDURE INFORMATION: Exam: CTA Chest With Contrast Exam date and time: 04/23/2021 12:26 AM Age: 45 years old Clinical indication: Shortness of breath; Left-sided; Prior surgery; Surgery date: 6+ months; Surgery type: Loop recorder; Patient HX: Left sided chest pain into arm, SOA TECHNIQUE: Imaging protocol: Computed tomographic angiography of the chest with contrast. 3D rendering (Not supervised by radiologist): MIP and/or 3D reconstructed images were created by the technologist. Radiation optimization: All CT scans at this facility use at least one of these dose optimization techniques: automated exposure control; mA and/or kV adjustment per patient size (includes targeted exams where dose is matched to clinical indication); or iterative reconstruction. Contrast material: ISO 370; Contrast volume: 70 ml; Contrast route: INTRAVENOUS (IV); COMPARISON: [facility] CTA-CHEST 05/13/2017 7:13 PM FINDINGS: Pulmonary arteries: No pulmonary embolus. Aorta: No thoracic aortic aneurysm. No dissection or acute aortic syndrome. Lungs: No consolidation. Minimal dependent atelectasis. No evidence of pneumonia. Pleural spaces: No pneumothorax. No pleural effusion. Heart: Upper limits of normal heart size. No pericardial effusion. Coronary arteries are partially obscured by motion artifact. No coronary arterial calcification is seen. Lymph nodes: No enlarged thoracic lymph nodes. Liver: Partially visualized liver demonstrates moderate to marked diffuse steatosis. Liver is likely enlarged. Bones/joints: Unremarkable. No acute fracture. Soft tissues: Loop recorder in the anterior chest wall subcutaneous adipose tissue slightly left the midline. IMPRESSION: 1. No evidence of pulmonary embolus. 2. Normal caliber of the thoracic aorta. No acute aortic syndrome. 3. No pneumonia. 4. Hepatic steatosis. Probable hepatomegaly.
--- NOTE | 2021-04-23 00:37 | PC.NURSE ---
pt gone to radiology.
[2021-04-23 00:45] LABS: Troponin I < 0.01 ng/ml (0.00-0.034)
== END 2021-04-23 01:49 | disposition home or self-care (01) ==
PROVIDERS: Emergency Provider Emergency Medicine; PCP Internal Medicine
DX: R07.89 Other chest pain (principal); E11.9 Type 2 diabetes mellitus without complications; I10 Essential (primary) hypertension; Z79.899 Other long term (current) drug therapy
CPT/HCPCS: 71045; 71275; 80053; 84145; 84484; 85025; 85651; 86140; 93005; 96365; 96366; 96375; 99283; J2405; Q9967; U0003

== ENCOUNTER 2021-05-21 13:49 | Emergency (ER) | payer OTHER, SELFPAY ==
[2021-05-21 15:20] VITALS: BP 149/91; PULSE 66; RESP 16; TEMP 36.8; O2SAT 98; BMI 47.8
--- NOTE | 2021-05-21 15:27 | HMH.EDUTC ---
[facility] [place] Clinical Impression: Pneumonia Qualifiers: Pneumonia type: due to unspecified organism Laterality: left Lung location: upper lobe of lung Qualified Code(s): J18.9 - Pneumonia, unspecified organism Disposition: Home, Self-Care Condition on Discharge: Good Instructions: DI for Pneumonia -- Adult Additional Instructions: Continue home steroids and Duo Nebs Prescriptions: levoFLOXacin [Levaquin 500mg tab] 500 mg PO DAILY 10 Days #10 tab Transmission Status: [facility] Guaifenesin/Dextromethorphan [Mucinex Dm ER 1,200-60 mg Tab] 1 tab PO BID 10 Days #20 tab Transmission Status: [facility] Referrals: Juarez Griffin [Primary Care Provider] - Time of Disposition: 16:11 Medical Decision Making - Harjinder Inquiry Pt receiving controlled substance: No Vital Signs: 05/21/21 15:20 Temperature 98.2 F Temperature Source Oral Pulse Rate [Right] 66 Respiratory Rate 16 Blood Pressure [Right Arm] 149/91 H Blood Pressure Mean [Right Arm] 110 02 Sat by Pulse Oximetry 98 Oxygen Delivery Method Room Air Orders (Tests/Meds): ORDERS Category Date Time Status CXR 2 view (NOT portable) [XR chest 2V] Stat Exams 05/21/21 15:33 Taken Covid-19 Nasal PCR ([facility]) Routine Lab 05/21/21 15:10 Received - Radiology Data #1 Image(s): Chest faint infiltrate left [facility] [place] - General Stated complaint: cough, sore throat, dizziness SOB Time Seen by Provider: 05/21/21 15:27 - History of Present Illness Provider Complaint: 1 week history of cough, congestion, shortness of breath. Low grade fever. Has had back pain and chest tightness. Saw Dr Griffin and finished Zpack, steroids today but does not feel any better. Has been using nebs without relief. Onset (ago): week(s) (1) Location: chest, back Radiation: non-radiation Relieving factors: none Exacerbating factors: none Associated symptoms: cough, fever/chills, malaise, shortness of breath Treatments prior to arrival: other (Zpack, steroids, nebs) - Related Data Home Medications Medication Instructions Recorded Confirmed Albuterol Sulfate [Albuterol 2.5 mg IH NEEDED PRN 04/17/19 07/22/20 0.083% 2.5mg/3mL neb] Montelukast Sodium [Montelukast 10 mg PO HS 04/17/19 07/22/20 10mg Tab] Tiotropium [place] [Spiriva 1 puff IH DAILY 04/17/19 07/22/20 18mcg/puff inhaler] ferrous sulfate 325 mg (65 mg 325 mg PO DAILY 02/22/20 07/22/20 iron) tablet nitroglycerin 0.4 mg sublingual 0.4 mg SUBLINGUAL Q5-15M PRN tab 02/22/20 07/22/20 tablet omeprazole 40 mg capsule,delayed 20 mg PO HS cap 02/22/20 07/22/20 release spironolactone 50 mg tablet 50 mg PO DAILY tab 02/22/20 07/22/20 tizanidine 4 mg capsule 4 mg PO QHS PRN 02/22/20 07/22/20 tramadol 100 mg tablet,extended 50 mg PO DAILY PRN tab 02/22/20 07/22/20 release 24 hr Furosemide [Furosemide 40MG tAB*] 40 mg PO DAILY 04/17/20 07/22/20 Ipratropium/Albuterol Sulfate 3 ml IH NEEDED PRN 04/17/20 07/22/20 [Duoneb 3mL neb] Nebivolol HCl [Bystolic] 10 mg PO DAILY 04/17/20 07/22/20 ibuprofen 800 mg tablet 800 mg PO TID PRN 05/30/20 07/22/20 promethazine 12.5 mg tablet 12.5 mg PO Q6H PRN 05/30/20 07/22/20 Losartan Potassium [Cozaar 50mg 50 mg PO DAILY 07/22/20 07/22/20 Tablets] Previous Rx's Medication Instructions Recorded Guaifenesin/Dextromethorphan 1 tab PO BID 10 Days #20 tab 05/21/21 [Mucinex Dm ER 1,200-60 mg Tab] levoFLOXacin [Levaquin 500mg 500 mg PO DAILY 10 Days #10 tab 05/21/21 tab] Allergies Allergy/AdvReac Type Severity Reaction Status Date / Time aspirin Allergy Severe S-DIFF. Verified 07/22/20 22:03 BREATHING bee venom protein (honey bee) Allergy Unknown Unknown Verified 07/22/20 22:03 allergy reaction sucralose Allergy Unknown Unknown Verified 07/22/20 22:03 [From SUCRALOSE (FOOD/DRUG)] allergy reaction H History - Hepatitis A Screen Attestation st
--- NOTE | 2021-05-21 15:33 | XR_ITS ---
PROCEDURE INFORMATION: Exam: XR Chest Exam date and time: 05/21/2021 3:33 PM Age: 46 years old Clinical indication: Cough TECHNIQUE: Imaging protocol: XR of the chest. Views: 2 views. COMPARISON: CR XR CHEST PORTABLE 04/22/2021 9:46 PM FINDINGS: Lungs: Unremarkable. No consolidation. Pleural spaces: Unremarkable. No pleural effusion. No pneumothorax. Heart/Mediastinum: Unremarkable. No cardiomegaly. Bones/joints: Unremarkable. IMPRESSION: No acute findings.
[2021-05-21 18:02] VITALS: BP 122/71; PULSE 93; RESP 16; TEMP 36.6; O2SAT 97
== END 2021-05-21 16:44 | disposition home or self-care (01) ==
PROVIDERS: Emergency Provider Physician Assistant; PCP Internal Medicine
DX: J18.9 Pneumonia, unspecified organism (principal); Z20.822 Contact with and (suspected) exposure to COVID-19; E11.9 Type 2 diabetes mellitus without complications; I10 Essential (primary) hypertension
CPT/HCPCS: 71046; 99202; G0463; J1030; U0003

== ENCOUNTER → 2021-09-07 09:03 | Outpatient (CLI) | payer OTHER, SELFPAY ==
--- NOTE | 2021-09-07 09:06 | XR_ITS ---
PROCEDURE: XR DEXA AXIAL SKELETON CLINICAL HISTORY: POST MENOPAUSAL, INTERMITTANT STEROIDS COMPARISON: No exams were available for comparison FINDINGS: The right hip BMD is 0.844 with a T-score of 0.0. The left hip BMD is 0.804 with a T-score of -0.4. The lumbar spine BMD is 1.008 with a T-score of -0.4. IMPRESSION: This patient is considered normal according to the World Health Organization criteria. Fracture risk is low. Based on these results a follow-up exam is recommended in 2 year. Dictated by: Vishal Niteo MD 09/07/2021 14:41 Vishal Nieto MD in [place] 09/07/2021 14:41
== END ==
PROVIDERS: PCP Internal Medicine; Visit Provider Internal Medicine
DX: Z78.0 Asymptomatic menopausal state (principal); Z79.52 Long term (current) use of systemic steroids
CPT/HCPCS: 77080

== ENCOUNTER → 2021-09-08 16:28 | Outpatient (CLI) | payer OTHER, SELFPAY ==
[2021-09-08 16:50] LABS: Basophils # 0.1 K/mm3 (0-0.2); Basophils % 0.3 % (0.1-2.0); Eosinophils % 0.1 % (0.1-12.0); Hematocrit 31.2 % (37.0-47.0); Hemoglobin 9.1 g/dL (12.2-16.2); Lymphocytes # 3.6 K/mm3 (0.7-4.5); Lymphocytes % 17.9 % (10-50); Mean Corpuscular Hemoglobin 22.4 pg (27.0-31.2); Mean Corpuscular Volume 77.1 fl (81-99); Mean Platelet Volume 8.6 fl (7.4-10.4); Monocytes # 0.8 K/mm3 (0.1-1.0); Monocytes % 4.2 % (1.7-9.3); Neutrophils # 15.5 K/mm3 (1.8-7.8); Neutrophils % 77.5 % (37.0-80.0); Platelet Count 567 K/mm3 (142-424); Red Blood Count 4.05 M/mm3 (4.20-5.40); Red Cell Distribution Width 16.4 % (11.5-17.5)
[2021-09-08 17:22] LABS: MANUAL DIFFERENTIAL MANUAL DIFFERENTIAL (MANUAL DIFF)
[2021-09-08 17:39] LABS: Lymphocytes % 18 % (10-50); Monocytes % 3 % (2-9); Neutrophils % 79 % (42-76); Total Cells Counted 100
[2021-09-08 17:40] LABS: Hypochromasia 2+; Microcytosis 1+; Platelet Estimate Slight Increase
[2021-09-08 21:45] LABS: Ferritin 9.16 ng/ml (6.24-137)
== END ==
PROVIDERS: Visit Provider Internal Medicine
DX: I10 Essential (primary) hypertension (principal); E53.8 Deficiency of other specified B group vitamins; J45.901 Unspecified asthma with (acute) exacerbation; T50.905A Adverse effect of unspecified drugs, medicaments and biological substances, initial encounter
CPT/HCPCS: 82728; 85007; 85025

== ENCOUNTER → 2021-12-15 16:24 | Outpatient (CLI) | payer OTHER, SELFPAY ==
[2021-12-15 19:06] LABS: Amphetamine/Metha Screen,Urine Negative ng/ml (<1000)
[2021-12-15 19:07] LABS: Barbiturates Screen,Urine Negative ng/ml (<200); Benzodiazepines Screen,Urine Negative ng/ml (<200)
[2021-12-15 19:08] LABS: Cannabinoid Screen,Urine Negative ng/ml (<50)
[2021-12-15 19:09] LABS: Cocaine Screen,Urine Negative ng/ml (<300); Methadone Screen,Urine Negative ng/ml (<300)
[2021-12-15 19:10] LABS: Opiate Screen,Urine Negative ng/ml (<300)
[2021-12-15 19:11] LABS: Phencyclidine Screen,Urine Negative ng/ml (<25)
== END ==
PROVIDERS: PCP Internal Medicine; Visit Provider Internal Medicine
DX: G89.29 Other chronic pain (principal)
CPT/HCPCS: 80305

== ENCOUNTER 2021-12-21 18:28 | Observation (INO) | payer OTHER, SELFPAY ==
--- NOTE | 2021-12-21 18:26 | ECG_ITS ---
APPROVED REPORT Exam: Resting ECG HR:88 bpm ECG Measurements Heart Rate 88 AXES AL 152 P 51 QRSd 88 QRS 69 QT 371 T 56 QTc 416 Conclusion SINUS RHYTHM NORMAL ECG UNCONFIRMED REPORT Electronically signed by : Ahsan Chew MD 12/22/2021 19:20:13
[2021-12-21 18:28] VITALS: BP 151/57; PULSE 85; RESP 18; TEMP 36.8; O2SAT 98; BMI 49.6
--- NOTE | 2021-12-21 18:35 | XR_ITS ---
PROCEDURE INFORMATION: Exam: XR Chest Exam date and time: 12/21/2021 6:35 PM Age: 46 years old Clinical indication: Pain; Chest pressure; Additional info: Chest pain TECHNIQUE: Imaging protocol: XR of the chest. Views: 1 view. Total images: 1 COMPARISON: CR XR CHEST 2V 05/21/2021 3:32 PM FINDINGS: Lungs: Low lung volumes. Pulmonary vasculature grossly normal. No gross pulmonary infiltrates or edema pattern. Pleural spaces: No pleural effusion. No pneumothorax. Heart/Mediastinum: Heart size normal. No tracheal/mediastinal shift. Diaphragm: Mild chronic elevation of the right hemidiaphragm. Bones/joints: No acute osseous abnormalities are identified. IMPRESSION: No acute thoracic process.
[2021-12-21 18:49] LABS: Basophils # 0.1 K/mm3 (0-0.2); Basophils % 0.6 % (0.1-2.0); Eosinophils # 0.3 K/mm3 (0.0-0.4); Eosinophils % 2.6 % (0.1-12.0); Hematocrit 37.9 % (37.0-47.0); Hemoglobin 11.5 g/dL (12.2-16.2); Lymphocytes # 3.2 K/mm3 (0.7-4.5); Lymphocytes % 26.6 % (10-50); Mean Corpuscular HGB Conc 30.5 g/dL (31.8-35.4); Mean Corpuscular Hemoglobin 22.6 pg (27.0-31.2); Mean Corpuscular Volume 74.1 fl (81-99); Mean Platelet Volume 7.3 fl (7.4-10.4); Monocytes # 0.5 K/mm3 (0.1-1.0); Monocytes % 4.3 % (1.7-9.3); Neutrophils # 7.9 K/mm3 (1.8-7.8); Neutrophils % 65.9 % (37.0-80.0); Platelet Count 479 K/mm3 (142-424); Red Blood Count 5.11 M/mm3 (4.20-5.40); Red Cell Distribution Width 16.3 % (11.5-17.5)
[2021-12-21 18:53] LABS: Chloride 97 mmol/L (98-107); Sodium 133 mmol/L (136-145)
[2021-12-21 18:56] LABS: Blood Urea Nitrogen 11 mg/dl (7-17); Calcium 8.2 mg/dl (8.4-10.2); Carbon Dioxide 28 mmol/L (22.0-30.0); Creatinine Clearance Estimated 95 mL/min (50-200); Estimated Glomerular Filt Rate 107 ml/min (>60); GFR (African American) 129 ML/MIN (>60); Glucose 147 mg/dl (74-100)
--- NOTE | 2021-12-21 19:07 | HMH.EDGENADL ---
ED Disposition Clinical Impression: Chest pain Qualifiers: Chest pain type: unspecified Qualified Code(s): R07.9 - Chest pain, unspecified Disposition: Admitted as Observation Condition on Discharge: Fair - Critical Care Critical Care Time: No Attestation: On 12/21/21, the high probability of a clinically significant, sudden or life threatening deterioration of the following system(s) required my full and direct attention, intervention and personal management. The time I documented below is in addition to time spent performing reported procedures but includes the following listed in this critical care notation. Medical Decision Making - Harjinder Inquiry Pt receiving controlled substance: No Vital Signs: 12/21/21 18:28 Temperature 98.2 F Temperature Source Oral Pulse Rate [Radial] 85 Respiratory Rate 18 Blood Pressure [Right Arm] 151/57 H Blood Pressure Mean [Right Arm] 88 Blood Pressure Position [Right Arm] Sitting 02 Sat by Pulse Oximetry 98 Oxygen Delivery Method Room Air - Lab Data Lab Results 12/21/21 18:35: WBC 12.0 H, RBC 5.11, Hgb 11.5 L, Hct 37.9, MCV 74.1 L, MCH 22.6 L, MCHC 30.5 L, RDW 16.3, Plt Count 479 H, MPV 7.3 L, Neut % (Auto) 65.9, Lymph % (Auto) 26.6, [place] % (Auto) 4.3, Eos % (Auto) 2.6, Baso % (Auto) 0.6, Neut # (Auto) 7.9 H, Lymph # (Auto) 3.2, [place] # (Auto) 0.5, Eos # (Auto) 0.3, Baso # (Auto) 0.1 12/21/21 18:35: Sodium 133 L, Potassium 4.0, Chloride 97 L, Carbon Dioxide 28, Anion Gap 12.0, BUN 11, Creatinine 0.60, Estimated Creat Clear 95, Estimated GFR 107, Est GFR ( Amer) 129, Glucose 147 H, Calcium 8.2 L, Troponin I < 0.01 12/21/21 18:35: Serum HCG, Qual Negative Result diagrams: 12/21/21 18:35 12/21/21 18:35 Orders (Tests/Meds): ED MEDICATIONS Discontinued Medications Generic Name Dose Route Start Last Admin Trade Name Freq PRN Reason Stop Dose Admin Ondansetron HCl 4 mg 12/21/21 19:23 Ondansetron 4mg/2ml Vial IV 12/21/21 19:24 ONCE ONE ORDERS Category Date Time Status Troponin I Q3H Lab 12/21/21 21:45 Ordered Troponin I Q3H Lab 12/22/21 00:45 Ordered - Radiology Data #1 Image(s): Chest Image Reviewed: Yes I reviewed the patient's radiology image, Yes I have reviewed radiologist's interpretation PROCEDURE INFORMATION: Exam: XR Chest Exam date and time: 12/21/2021 6:35 PM Age: 46 years old Clinical indication: Pain; Chest pressure; Additional info: Chest pain TECHNIQUE: Imaging protocol: XR of the chest. Views: 1 view. Total images: 1 COMPARISON: CR XR CHEST 2V 05/21/2021 3:32 PM FINDINGS: Lungs: Low lung volumes. Pulmonary vasculature grossly normal. No gross pulmonary infiltrates or edema pattern. Pleural spaces: No pleural effusion. No pneumothorax. Heart/Mediastinum: Heart size normal. No tracheal/mediastinal shift. Diaphragm: Mild chronic elevation of the right hemidiaphragm. Bones/joints: No acute osseous abnormalities are identified. IMPRESSION: No acute thoracic process. - ECG Data Tracing #1 EKG interpreted by Yovani Holder MD: Rhythm: sinus Rate: 88 [place]: normal Ectopy: none Conduction: normal ST Segment Changes: none T Wave Changes: none Q Waves: none No evidence of acute ischemia or injury - Physician Consults Physician Consulted: [facility] Time: 19:50 Reason -: Admission Comment/Response: Agrees to admit the patient to the hospital. We discussed the patient's clinical information, including history, exam, laboratory and radiology results and ED course. Per hospital procedure, I will write temporary bridge inpatient orders on the patient. Specific orders requested by the admitting physician: Serial cardiac enzymes, echocardiogram in the morning. Cardiology consult in the morning. - ELDA Score for Non-Stemi Age of Patient: 40-49 years old Heart Rate: 70-89 bpm Systolic Blood Pressure: 140-15
[2021-12-21 19:13] LABS: Troponin I < 0.01 ng/ml (0.00-0.034)
[2021-12-21 19:21] LABS: HCG Qualitative, Serum Negative (Negative)
[2021-12-21 19:49] VITALS: BMI 49.6; BMI 50.2
[2021-12-21 20:00] VITALS: BP 132/98; PULSE 75; RESP 18; TEMP 36.6; O2SAT 94; O2SAT 97
[2021-12-21 20:39] VITALS: BP 118/98; PULSE 76; RESP 16; TEMP 36.8; O2SAT 97
--- NOTE | 2021-12-21 20:44 | HMH.PHAVTE ---
[facility] VTE Monitoring - Patient Demographics Admission date: 12/21/21 Report Date: 12/21/21 Time: 20:44 Allergies/Adverse Reactions: Patient Allergies aspirin Allergy (Severe, Verified 07/22/20 22:03) S-DIFF. BREATHING bee venom protein (honey bee) Allergy (Unknown, Verified 07/22/20 22:03) Unknown allergy reaction sucralose [From SUCRALOSE (FOOD/DRUG)] Allergy (Unknown, Verified 07/22/20 22:03) Unknown allergy reaction Height: 1.6 m Weight: 127.006 kg Patient Problems: Current Active Problems Chest pain (Acute) - VTE Risk Labs: VTE Related Lab Results Hgb 11.5 g/dL (12.2-16.2) L 12/21/21 18:35 Hct 37.9 % (37.0-47.0) 12/21/21 18:35 Plt Count 479 K/mm3 (142-424) H 12/21/21 18:35 BUN 11 mg/dl (7-17) 12/21/21 18:35 Creatinine 0.60 mg/dl (0.52-1.04) 12/21/21 18:35 Estimated Creat Clear 95 mL/min (50-200) 12/21/21 18:35 Clinical Trial Participant: No - Prophylaxis VTE Prophylaxis Ordered?: Yes Types of VTE Prophylaxis: TEDS Knee High
--- NOTE | 2021-12-21 21:07 | PC.NURSE ---
PATIENT UP TO FLOOR VIA WHEELCHAIR @ THIS TIME.
[2021-12-21 21:45] VITALS: PULSE 70
[2021-12-21 22:34] LABS: Troponin I < 0.01 ng/ml (0.00-0.034)
[2021-12-22] VITALS (19 sets, daily range): BP systolic 87–131; BP diastolic 38–84; PULSE 58–94; RESP 16–22; TEMP 36.5–36.7; O2SAT 90–100; BMI 50.1
--- NOTE | 2021-12-22 | IR_ITS ---
APPROVED REPORT Patient Location: Inpatient Machine Shop Inspector: DOMINICK Woods RT (R) PROCEDURES Left heart catheterization Left ventriculogram Selective coronary angiogram INDICATION Acute coronary syndrome, High SARA score, Numerous risk factors for coronary disease with ongoing angina pectoris Informed consent was obtained prior to the procedure. COMPLICATIONS None Estimated Blood Loss: Less than 10 mls TECHNIQUE One percent lidocaine used to anesthetize the right anterior aspect of the wrist. The right radial artery was accessed via the Seldinger technique. A 6 German sheath was placed in the right radial artery. The papa catheter was also used to perform left heart catheterization, left ventriculogram and selective coronary angiogram. At the end of the procedure the sheath was removed good hemostasis was achieved using Traclet band, patient was transferred to the postop holding area in stable condition. ANGIOGRAPHIC RESULTS The left main artery Normal The left anterior descending artery Mild luminal irregularities The circumflex artery Dominant mild luminal irregularities The right coronary artery Nondominant normal The SHEEHAN ventriculogram reveals Normal 65% The left ventricular end-diastolic pressure Severely elevated at 40 mmHg IMPRESSION Mild luminal irregularities Normal ejection fraction Severely elevated LVEDP consistent with diastolic dysfunction which is the etiology for patient's angina PLAN 1. Treatment of diastolic dysfunction 2. Risk factor modification 3. Treatment of mild luminal irregularities with risk factor modification 4. Avoidance of pop and consider diuretics to decrease LVEDP 5. Recommend sleep study Electronically signed by : Lamin Zhao MD 12/22/2021 11:01:25
[2021-12-22 01:10] LABS: Troponin I < 0.01 ng/ml (0.00-0.034)
--- NOTE | 2021-12-22 02:11 | ECG_ITS ---
APPROVED REPORT Exam: Resting ECG HR:61 bpm ECG Measurements Heart Rate 61 AXES PA 163 P 44 QRSd 85 QRS 27 QT 413 T 31 QTc 416 Conclusion SINUS RHYTHM LOW QRS VOLTAGE IN PRECORDIAL LEADS [QRS DEFLECTION < 1.0 mV IN CHEST LEADS] BORDERLINE ECG UNCONFIRMED REPORT Electronically signed by : Ahsan Chew MD 12/22/2021 19:18:45
--- NOTE | 2021-12-22 06:28 | PC.NURSE ---
Pt pleasant and cooperative, a+o x 4. Pt has c/o consistent mid chest pain that slighty radiates to left collarbone and arm. EKG performed, no acute changes per Dr. Lawson. Pt has been administered 4mg Morphine 1x. Pt states It helps with the chest pain, but it doesnt change the pressure i have in my chest. Pt also c/o nausea 1x t/o shift. 4mg Zofran administered with favorable results. Pt has been ambulating to with standyby assist, will occasionally have dizziness while ambulating. Pt has worn 2 L O2 nc while asleep, pt states she does at home as well. Knee high TEDS in place to BLE. Call light within reach.
[2021-12-22 08:18] LABS: Coronavirus 19, PCR Not Detected (NotDetected); Influenza A, PCR Not Detected (NotDetected); Influenza B, PCR Not Detected (NotDetected)
--- NOTE | 2021-12-22 08:31 | HMH.PHAINT ---
Home med rec complete
--- NOTE | 2021-12-22 09:07 | HMH.CNCARD ---
History of Present Illness Consult date: 12/22/21 Requesting physician: Paul Billings Consult reason: chest pain Chief complaint: Chest pain Additional Medical History:: 1. Essentially normal right and left heart cardiac catheterization 2014 A. Normal Lexiscan Myoview, 2019 2. Prediabetes/insulin resistance, on Metformin 3. 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 obesity 5. Hypertension A. Echo, 1. Mildly enlarged left atrium, normal left ventricular size, mild concentric left ventricular hypertrophy, visually estimated ejection fraction 55% with no regional wall motion abnormality, grade 1 diastolic dysfunction seen without tissue Doppler evidence of raise left atrial pressure. 2. Mild mitral and tricuspid regurgitation. 3. No significant pericardial effusion noted. Electronically signed by : Mirza Bowser, 06/23/2020 15:06:25 6. History of diastolic congestive heart failure History of present illness: 46-year-old white female in her usual state of health until last evening when she developed sudden substernal discomfort radiating toward the shoulders and the back with associated nausea and profuse diaphoresis. Patient did try taking antacids due to some heartburn symptoms without relief. When symptoms continued and increased in intensity she took a nitroglycerin with near immediate relief in 30 minutes. Symptoms did return at which time she took a second nitroglycerin and came to the emergency department for further evaluation. She was given morphine in the ER with no improvement in symptoms. Patient was admitted for evaluation and observation. Troponins have returned normal overnight. EKGs are sinus with no acute ST segment changes but notation is made of chronic early repolarization changes. Patient does have frequent bouts of COPD exacerbation requiring steroid use 5-6 times per year along with accompanying antibiotic therapy. She states the chest pain last night was significantly different than anything with her lungs. She no longer has a gallbladder but has never had a GI work-up. Non-smoker and nondrinker. She maintains compliance with all of her medications. [facility] History Medical History: Reports:: Congestive Heart Failure, Diabetes Mellitus Type 2, Hypertension, Palpitations Denies:: Cancer, Diabetes Mellitus Type 1, MRSA *Have you ever received a pneumonia vaccine?: Yes (Allergic reaction - anaphylactic) *Have you received a flu vaccine this season?: No Other Surgeries: Yes: No Previous Surgery, Cardiac Catheterization, Cholecystectomy, Tubal Ligation Amputation: No Fractures: No - *Social History Last grade of school completed: Advanced degree Smoking Status: Never smoker Alcohol Intake: never Substance Use Type: denies use *Occupational Status:: unemployed Housing: house Household Members: spouse *Travel in the last 8 weeks: None Family Hx:: Unable to obtain, Non-contributory Meds Home Medications Medication Instructions Recorded Confirmed Type ferrous sulfate 325 mg (65 mg 325 mg PO DAILY 02/22/20 12/21/21 History iron) tablet nitroglycerin 0.4 mg sublingual 0.4 mg SUBLINGUAL Q5-15M PRN tab 02/22/20 12/21/21 History tablet omeprazole 40 mg capsule,delayed 40 mg PO AM cap 02/22/20 12/22/21 History release spironolactone 50 mg tablet 50 mg PO DAILY tab 02/22/20 12/21/21 History tizanidine 4 mg capsule 4 mg PO TIDP PRN 02/22/20 12/21/21 History Ipratropium/Albuterol Sulfate 3 ml IH NEEDED PRN 04/17/20 12/21/21 History [Duoneb 3mL neb] ibuprofen 800 mg tablet 800 mg PO BID 05/30/20 12/22/21 History Fluticasone/Salmeterol [Advair 1 puff IH AM 12/21/21 12/22/21 History 250/50mcg Diskus] Furosemide [Furosemide 40MG tAB*] 40 mg PO BIDL 12/21/21 12/21/21 History Metformin HCl [Metformin 1000mg 500 mg PO BID 12/21/21 12/22/21 History Tablets] Nebivolol HCl 5 mg PO DAILY 12/21/21 12/21/21 History Promethazine HCl [Ph
--- NOTE | 2021-12-22 11:28 | HMH.HP ---
*Admission Date: 12/21/21 <Vira Alejandro 12/22/21 11:34> *Chief complaint: chest pain <Vira Alejandro 12/22/21 11:34> *History of present illness: 46-year-old white female in her usual state of health until last evening when she developed sudden substernal discomfort radiating toward the shoulders and the back with associated nausea and profuse diaphoresis. Patient did try taking antacids due to some heartburn symptoms without relief. When symptoms continued and increased in intensity she took a nitroglycerin with near immediate relief in 30 minutes. Symptoms did return at which time she took a second nitroglycerin and came to the emergency department for further evaluation. She was given morphine in the ER with no improvement in symptoms. Patient was admitted for evaluation and observation. Troponins have returned normal overnight. EKGs are sinus with no acute ST segment changes but notation is made of chronic early repolarization changes. Patient does have frequent bouts of COPD exacerbation requiring steroid use 5-6 times per year along with accompanying antibiotic therapy. She states the chest pain last night was significantly different than anything with her lungs. She no longer has a gallbladder but has never had a GI work-up. Non-smoker and nondrinker. She maintains compliance with all of her medications. (above as per Sameer Dia) Further to above history, the patient did run a fever a few days ago and has had cough and congestion along with some shortness of breath but no wheezing. She hsa also had body aches and chills. Her chest x-ray showed nothing acute. Her Covid test is negative but her white blood cell count is elevated. <Vira Alejandro 12/22/21 11:34> [facility] History I have reviewed the patient's past medical history: Yes <Vira Alejandro 12/22/21 11:34> Medical History: Reports:: Asthma, Congestive Heart Failure, Chronic Obstructive Pulmonary Disease (COPD), Diabetes Mellitus Type 2, Hypertension, Palpitations Denies:: Cancer, Diabetes Mellitus Type 1, MRSA <BabatundehelgaVira 12/22/21 11:34> *Have you ever received a pneumonia vaccine?: Yes (Allergic reaction - anaphylactic) <Vira Alejandro 12/22/21 11:34> *Have you received a flu vaccine this season?: No <Vira Alejandro 12/22/21 11:34> Other Medical History: Reports: Other (Rheumatoid arthritis) <BabatundehelgaVira 12/22/21 11:34> Other Surgeries: Yes: Cardiac Catheterization, Cholecystectomy, Tubal Ligation <BabatundehelgaVira 12/22/21 11:34> Amputation: No <BabatundehelgaVira 12/22/21 11:34> Fractures: No <BabatundehelgaVira 12/22/21 11:34> - *Social History Last grade of school completed: Advanced degree <BabatundehelgaVira 12/22/21 11:34> Smoking Status: Never smoker <BabatundehelgaVira 12/22/21 11:34> Alcohol Intake: never <BabatundehelgaVira 12/22/21 11:34> Substance Use Type: denies use <BabatundehelgaVira 12/22/21 11:34> *Occupational Status:: unemployed <BabatundehelagVira 12/22/21 11:34> Housing: house <BabatundehelgaVira 12/22/21 11:34> Household Members: spouse <FlaviaVira 12/22/21 11:34> *Travel in the last 8 weeks: None <BabatundehelgaVira 12/22/21 11:34> Family Hx:: Non-contributory <BabatundehelgaVira 12/22/21 11:34> Review of Systems - Constitutional Reports chills, Reports fever(s), Reports weakness <BabatundehelgaVira 12/22/21 11:34> - Eyes Denies blurry vision, Denies double vision <FlaviaVira 12/22/21 11:34> - ENT Reports nasal congestion, Reports sore throat <BabatundehelgaVira 12/22/21 11:34> - *Cardiovascular Reports chest pain, Reports shortness of breath <FlaviaVira 12/22/21 11:34> - *Respiratory Reports cough, Reports shortness of breath <FlaviaVira 12/22/21 11:34> - *Gastrointestinal Denies abdominal pain, Denies loose stools, Denies nausea, Denies vomiting <FlaviaVira 12/22/21 11:34> - *Genitourinary Denies difficulty urinating, Denies painful urination <Vira Alejandro - 12/22/21 11:34> - *Musculoskel
--- NOTE | 2021-12-22 11:29 | PC.NURSE ---
Pt back to the floor at this time. Rt radial cath site is clean w/ no active bleeding or hematoma noted. VSS. Pt is on RA @ 96%. Pt states she is no pain. Will continue to monitor.
--- NOTE | 2021-12-22 14:02 | HMH.PHAINT ---
Discharge counseling complete. Informed pt of change to furosemide directions. Pt understood and had no questions or concerns
--- NOTE | 2021-12-22 14:59 | PC.NURSE ---
Pt still has 4mL of air to be released from tracelet band. Once this is removed, pt will be ready for discharge.
--- NOTE | 2021-12-22 15:32 | PC.NURSE ---
Air out of tracelet, no bleeding or hematoma noted. Telfa and tegaderm applied. Discharge instructions printing at this time.
--- NOTE | 2021-12-24 21:41 | HMH.DCSUM ---
General - General Admission date:: 12/21/21 <Paul Billings - 01/17/22 22:19> 12/21/21 <Vira Alejandro - 12/24/21 21:44> Discharge date: 12/22/21 <Vira Alejandro - 12/24/21 21:44> HPI HPI: 46-year-old white female in her usual state of health until last evening when she developed sudden substernal discomfort radiating toward the shoulders and the back with associated nausea and profuse diaphoresis. Patient did try taking antacids due to some heartburn symptoms without relief. When symptoms continued and increased in intensity she took a nitroglycerin with near immediate relief in 30 minutes. Symptoms did return at which time she took a second nitroglycerin and came to the emergency department for further evaluation. She was given morphine in the ER with no improvement in symptoms. Patient was admitted for evaluation and observation. Troponins have returned normal overnight. EKGs are sinus with no acute ST segment changes but notation is made of chronic early repolarization changes. Patient does have frequent bouts of COPD exacerbation requiring steroid use 5-6 times per year along with accompanying antibiotic therapy. She states the chest pain last night was significantly different than anything with her lungs. She no longer has a gallbladder but has never had a GI work-up. Non-smoker and nondrinker. She maintains compliance with all of her medications. (above as per Sameer Dia) Further to above history, the patient did run a fever a few days ago and has had cough and congestion along with some shortness of breath but no wheezing. She hsa also had body aches and chills. Her chest x-ray showed nothing acute. Her Covid test is negative but her white blood cell count is elevated. <Vira Alejandro - 12/24/21 21:44> Hospital Course Hospital Course: The patient's chest x-ray showed nothing acute. She was admitted and seen in consultation by cardiology. They planned to do an echo and a heart cath. Her heart cath showed mild luminal irregularities but she had a normal ejection fraction and a severely elevated LVEDP consistent with diastolic dysfunction. Cardiology felt this was the etiology for her angina. They felt she could be discharged home on Lasix 80 mg twice daily and spironolactone 50 mg twice daily for 1 week and then she should back down the Lasix to 40 mg twice daily and spironolactone 50 mg daily. They wanted to follow-up with her in their office in 2 weeks. She was stable to be discharged. <Vira Alejandro - 12/24/21 21:44> Objective Vital signs: Temp Pulse Resp BP Pulse Ox 97.7 F 68 16 118/70 99 12/22/21 11:32 12/22/21 15:20 12/22/21 15:20 12/22/21 15:20 12/22/21 15:20 <Paul Billings - 01/17/22 22:19> Temp Pulse Resp BP Pulse Ox 97.7 F 68 16 118/70 99 12/22/21 11:32 12/22/21 15:20 12/22/21 15:20 12/22/21 15:20 12/22/21 15:20 <Law Alejandroa - 12/24/21 21:44> Narrative: - Constitutional no acute distress - *Routine HEENT Exam Head: Present: normocephalic Eye: Present: EOMI, PERRL ENT: Present: mucous membranes moist - *Routine Neck Exam Present: supple. Absent: lymphadenopathy - *Routine Respiratory Exam Present: CTA bilaterally - *Routine Cardiovascular Exam Present: RRR - *Routine Abdominal Exam Present: soft, normoactive bowel sounds. Absent: tenderness - *Routine Rectal Exam Rectal:: deferred - *Routine Genitalia Exam Genitalia:: deferred - *Routine Extremities Exam Present: edema (Trace lower extremity edema). Absent: cyanosis, clubbing - *Routine Skin Exam Present: warm. Absent: rash - *Routine Neurological Exam Present: alert, oriented X3 <Law Alejandroa - 12/24/21 21:44> DS: Diagnosis - Discharge Diagnosis (1) Chest pain Status: Acute (2) SOB (shortness of breath) Status: Acute (3) Diastolic dysfunction Status: Chronic (4) HTN (hypertens
== END 2021-12-22 16:10 | disposition home or self-care (01) ==
LOC: ER 18:38 → 2ND 19:42
PROVIDERS: Internal Medicine; Admitting Provider Family Medicine; Emergency Provider Emergency Medicine; PCP Internal Medicine; Visit Provider Family Medicine
DX: I25.118 Atherosclerotic heart disease of native coronary artery with other forms of angina pectoris (principal); I50.32 Chronic diastolic (congestive) heart failure; I11.0 Hypertensive heart disease with heart failure; E11.9 Type 2 diabetes mellitus without complications; Z79.899 Other long term (current) drug therapy; Z79.84 Long term (current) use of oral hypoglycemic drugs; J44.9 Chronic obstructive pulmonary disease, unspecified; Z20.822 Contact with and (suspected) exposure to COVID-19
CPT/HCPCS: 36415; 71045; 80048; 84484; 84703; 85025; 93005; 93458; 96374; 96375; 99152; 99284; C1725; C1769; C9803; G0378; J1644; J2405; Q9967; U0003; U0005

== ENCOUNTER → 2021-12-28 11:14 | Outpatient (CLI) | payer OTHER, SELFPAY ==
[2021-12-28 13:04] LABS: Chloride 94 mmol/L (98-107); Sodium 134 mmol/L (136-145)
[2021-12-28 13:07] LABS: Blood Urea Nitrogen 14 mg/dl (7-17); Carbon Dioxide 29 mmol/L (22.0-30.0); Estimated Glomerular Filt Rate 77 ml/min (>60); GFR (African American) 93 ML/MIN (>60)
[2021-12-28 13:08] LABS: Calcium 9.2 mg/dl (8.4-10.2); Glucose 134 mg/dl (74-100)
== END ==
PROVIDERS: Visit Provider Internal Medicine
DX: R06.09 Other forms of dyspnea (principal); I50.30 Unspecified diastolic (congestive) heart failure; I10 Essential (primary) hypertension
CPT/HCPCS: 36415; 80048

== ENCOUNTER → 2022-01-01 13:54 | Outpatient (CLI) | payer OTHER, SELFPAY ==
--- NOTE | 2022-01-01 13:55 | CA_ITS ---
FINAL REPORT TECHNIQUE: Duplex Doppler imaging of the right wrist was obtained. CLINICAL HISTORY: Patient had heart cath with right wrist access 12/22/21. Patient states it began hurting a couple of days ago. FINDINGS: No pseudoaneurysm is seen of the right radial artery. No AV fistula is identified. IMPRESSION: Unremarkable exam without evidence of AV fistula or pseudoaneurysm. Reviewed, Interpreted and Dictated by Clinton Argueta III, MD Transcribed by Lyndsay Hernandez Authenticated by Clinton Argueta III, MD on 01/01/2022 03:29:[address] [facility]
== END ==
PROVIDERS: PCP Internal Medicine; Visit Provider Nurse Practitioner Family
DX: I72.9 Aneurysm of unspecified site (principal)
CPT/HCPCS: 93931

== ENCOUNTER 2022-01-03 15:11 | Emergency (ER) | payer OTHER, SELFPAY ==
[2022-01-03 15:12] VITALS: BP 150/92; PULSE 87; RESP 16; TEMP 36.8; O2SAT 98; BMI 49.6
--- NOTE | 2022-01-03 16:39 | HMH.EDUTC ---
[facility] [place] Clinical Impression: Cellulitis of right wrist Disposition: Home, Self-Care Condition on Discharge: Good Instructions: Cellulitis Additional Instructions: Apply warm wet compresses to the affected sites three or four times per day for 15 minutes as tolerated. Take the antibiotics as directed. Follow up with your regular doctor. Follow up with cardiology. Call them and let them know what's going on with you. They will want to recheck you there. GO TO THE ER FOR ANY WORSENING SYMPTOMS OR CONCERNS Prescriptions: Sulfamethoxazole/Trimethoprim [Bactrim DS tablet] 1 each PO BID 10 Days #20 tab Transmission Status: Received by [facility] Mupirocin [Bactroban 2% Ointment 22gm tube] 1 applicatio TP TID 7 Days #1 gm Transmission Status: Received by [facility] cephALEXin [cephALEXin 500mg capsule] 500 mg PO Q6H 10 Days #40 cap Transmission Status: Received by [facility] Referrals: Juarez Griffin [Primary Care Provider] - Time of Disposition: 17:25 Medical Decision Making - Medical Records Medical records reviewed: No: I reviewed the patient's medical records. - Harjinder Inquiry Pt receiving controlled substance: No Vital Signs: 01/03/22 15:12 01/03/22 17:53 Temperature 98.3 F 98.3 F Temperature Source Oral Pulse Rate 87 Pulse Rate [Right] 87 Respiratory Rate 16 16 Blood Pressure 150/92 H Blood Pressure [Right Arm] 150/92 H Blood Pressure Mean [Right Arm] 111 Blood Pressure Source [Right Arm] Automatic Cuff Blood Pressure Position [Right Arm] Sitting 02 Sat by Pulse Oximetry 98 Oxygen Delivery Method Room Air - Lab Data Lab Results 01/03/22 17:30: WBC 12.1 H, RBC 5.35, Hgb 12.4, Hct 39.9, MCV 74.6 L, MCH 23.1 L, MCHC 31.0 L, RDW 18.2 H, Plt Count 496 H, MPV 8.2, Neut % (Auto) 71.6, Lymph % (Auto) 22.5, [place] % (Auto) 3.9, Eos % (Auto) 1.2, Baso % (Auto) 0.7, Neut # (Auto) 8.7 H, Lymph # (Auto) 2.7, [place] # (Auto) 0.5, Eos # (Auto) 0.2, Baso # (Auto) 0.1 Result diagrams: 01/03/22 17:30 Orders (Tests/Meds): ED MEDICATIONS Discontinued Medications Generic Name Dose Route Start Last Admin Trade Name Pete PRN Reason Stop Dose Admin Ceftriaxone Sodium 1 gm 01/03/22 17:26 01/03/22 17:40 Ceftriaxone 1gm Vial IM 01/03/22 17:27 1 gm ONCE ONE Administration Lidocaine HCl 0 ml 01/03/22 17:26 01/03/22 17:40 Lidocaine 1% 5ml Pf Vial IM 01/03/22 17:27 2 ml ONCE ONE Administration Ondansetron HCl 8 mg 01/03/22 17:26 01/03/22 17:39 Ondansetron 4mg Odt SL 01/03/22 17:27 8 mg ONCE ONE Administration ORDERS Category Date Time Status Blood Culture Stat Micro 01/03/22 17:30 Received Wound Culture and Gram Stain Stat Micro 01/03/22 17:54 Received [facility] [place]PI - General Stated complaint: had heart cath done wrist pain Time Seen by Provider: 01/03/22 16:41 Mode of Arrival: Ambulatory Source of Information: Patient Limitations: No Limitations Description of Symptoms (Recalled from Triage Doc. by RN): PT advises she had a radial heart cath on 12/22 and noticed some swelling. She went to Dr. Crain office on Saturday and they confirmed there was no blood clot. Pt advises yesterday it started swelling some more and started draining. HEENT Symptoms (Recalled from RN notes): No Resp Symptoms (Recalled from RN notes): No Skin Symptoms (Recalled from RN notes): Yes (wound swelling and draining) MS Symptoms (Recalled from RN notes): No Functional Status (Recalled from RN notes): na - History of Present Illness Provider Complaint: She had a heart cath done on 12/22 by cardiology here at [facility]. The site initially healed well. About 4 days ago she began having tenderness around the site and some redness. She went to cardiology and was checked for a blood clot (results were negative). Since then she has had some worsening redness at the site and some clear drainage. She denies any fever/chills/body aches. - R
[2022-01-03 17:53] VITALS: BP 150/92; PULSE 87; RESP 16; TEMP 36.8; O2SAT 98
[2022-01-03 17:53] LABS: Basophils # 0.1 K/mm3 (0-0.2); Basophils % 0.7 % (0.1-2.0); Eosinophils # 0.2 K/mm3 (0.0-0.4); Eosinophils % 1.2 % (0.1-12.0); Hematocrit 39.9 % (37.0-47.0); Hemoglobin 12.4 g/dL (12.2-16.2); Lymphocytes # 2.7 K/mm3 (0.7-4.5); Lymphocytes % 22.5 % (10-50); Mean Corpuscular Hemoglobin 23.1 pg (27.0-31.2); Mean Corpuscular Volume 74.6 fl (81-99); Mean Platelet Volume 8.2 fl (7.4-10.4); Monocytes # 0.5 K/mm3 (0.1-1.0); Monocytes % 3.9 % (1.7-9.3); Neutrophils # 8.7 K/mm3 (1.8-7.8); Neutrophils % 71.6 % (37.0-80.0); Platelet Count 496 K/mm3 (142-424); Red Blood Count 5.35 M/mm3 (4.20-5.40); Red Cell Distribution Width 18.2 % (11.5-17.5); White Blood Count 12.1 K/mm3 (4.8-10.8)
== END 2022-01-03 17:57 | disposition home or self-care (01) ==
PROVIDERS: Emergency Provider Nurse Practitioner Family; PCP Internal Medicine
DX: L03.113 Cellulitis of right upper limb (principal)
CPT/HCPCS: 85025; 87040; 87070; 87077; 87186; 87205; 96372; 99212; G0463; J0696

== ENCOUNTER → 2022-01-09 14:30 | Outpatient (CLI) | payer OTHER, SELFPAY ==
[2022-01-09 16:38] LABS: Anion Gap 16.9 mEq/L (5-15); Blood Urea Nitrogen 16 mg/dl (7-17); Calcium 8.7 mg/dl (8.4-10.2); Carbon Dioxide 20 mmol/L (22.0-30.0); Chloride 102 mmol/L (98-107); Estimated Glomerular Filt Rate 48 ml/min (>60); GFR (African American) 58 ML/MIN (>60); Glucose 176 mg/dl (74-100); Potassium 3.9 mmoL/L (3.5-5.1); Sodium 135 mmol/L (136-145)
== END ==
PROVIDERS: Visit Provider Internal Medicine
DX: I10 Essential (primary) hypertension (principal)
CPT/HCPCS: 36415; 80048

== ENCOUNTER 2022-01-09 20:33 | Emergency (ER) | payer OTHER, SELFPAY ==
[2022-01-09 20:35] VITALS: BP 127/78; PULSE 98; RESP 22; TEMP 37.4; O2SAT 99; BMI 47.8
[2022-01-09 21:39] LABS: Basophils % 0.7 % (0.1-2.0); Eosinophils # 0.2 K/mm3 (0.0-0.4); Eosinophils % 2.6 % (0.1-12.0); Hematocrit 38.2 % (37.0-47.0); Hemoglobin 11.7 g/dL (12.2-16.2); Lymphocytes # 0.7 K/mm3 (0.7-4.5); Lymphocytes % 11.7 % (10-50); Mean Corpuscular HGB Conc 30.5 g/dL (31.8-35.4); Mean Corpuscular Hemoglobin 23.3 pg (27.0-31.2); Mean Corpuscular Volume 76.4 fl (81-99); Mean Platelet Volume 8.5 fl (7.4-10.4); Monocytes # 0.3 K/mm3 (0.1-1.0); Monocytes % 5.2 % (1.7-9.3); Neutrophils % 79.8 % (37.0-80.0); Platelet Count 380 K/mm3 (142-424); Red Blood Count 5.01 M/mm3 (4.20-5.40); Red Cell Distribution Width 18.5 % (11.5-17.5); White Blood Count 6.2 K/mm3 (4.8-10.8)
[2022-01-09 21:47] LABS: Alanine Aminotransferase 56 U/L (12-78); Albumin Level 4.5 g/dl (3.5-5.0); Albumin/Globulin Ratio 1.5 (1.1-1.8); Alkaline Phosphatase 89 U/L (38-126); Amylase 60 U/L (30-110); Aspartate Amino Transferase 54 U/L (14-36); Bilirubin,Total 0.5 mg/dl (0.2-1.3); Blood Urea Nitrogen 17 mg/dl (7-17); Calcium 8.6 mg/dl (8.4-10.2); Carbon Dioxide 26 mmol/L (22.0-30.0); Chloride 99 mmol/L (98-107); Creatinine Clearance Estimated 52 mL/min (50-200); Estimated Glomerular Filt Rate 53 ml/min (>60); GFR (African American) 64 ML/MIN (>60); Globulin 3.1 g/dL (1.3-3.2); Glucose 118 mg/dl (74-100); Sodium 134 mmol/L (136-145); Total Protein,Serum 7.6 g/dl (6.3-8.2)
[2022-01-09 21:59] LABS: Microscopic, Urine URINE MICROSCOPIC (MICROSCOPIC)
[2022-01-09 22:00] LABS: Appearance,Urine CLEAR (Clear); Bilirubin,Urine Negative (Negative); Blood, Urine 3+ (Negative); Color,Urine YELLOW (Yellow); Glucose,Urine (UA) TRACE (Negative); Ketones,Urine Negative (Negative); Leukocyte Esterase,Urine TRACE (Negative); Nitrate,Urine Negative (Negative); Protein,Urine Negative (Negative); Urobilinogen,Urine 0.2 EU/dl (0.2)
[2022-01-09 22:05] LABS: Procalcitonin 0.168 ng/mL (0.0-2.0)
[2022-01-09 22:06] LABS: Erythrocyte Sedimentation Rate 19 mm/hr (0-20)
[2022-01-09 22:08] LABS: Bacteria,Urine Trace /lpf; RBC,Urine 20-50 #/hpf (0-3)
--- NOTE | 2022-01-09 22:34 | XR_ITS ---
PROCEDURE INFORMATION: Exam: XR Chest Exam date and time: 01/09/2022 10:34 PM Age: 46 years old Clinical indication: Shortness of breath; Additional info: SOA TECHNIQUE: Imaging protocol: XR of the chest. Views: 2 views. COMPARISON: CR XR CHEST PORTABLE 12/21/2021 6:39 PM FINDINGS: Lungs: Subtle interstitial haziness could reflect interstitial pneumonia. No consolidation. Pleural spaces: Unremarkable. No pleural effusion. No pneumothorax. Heart/Mediastinum: Unremarkable. No cardiomegaly. Bones/joints: Unremarkable. IMPRESSION: Subtle interstitial haziness could reflect interstitial pneumonia.
--- NOTE | 2022-01-09 22:34 | CT_ITS ---
PROCEDURE INFORMATION: Exam: CT Head Without Contrast Exam date and time: 01/09/2022 10:34 PM Age: 46 years old Clinical indication: Other: Confusion TECHNIQUE: Imaging protocol: Computed tomography of the head without contrast. Radiation optimization: All CT scans at this facility use at least one of these dose optimization techniques: automated exposure control; mA and/or kV adjustment per patient size (includes targeted exams where dose is matched to clinical indication); or iterative reconstruction. COMPARISON: HEADWO CT head/brain wo con 02/05/2018 7:45 PM FINDINGS: Brain: Normal. No hemorrhage. Unremarkable white matter. No mass effect. Cerebral ventricles: No ventriculomegaly. Paranasal sinuses: Visualized sinuses are unremarkable. No fluid levels. Mastoid air cells: Visualized mastoid air cells are well aerated. Bones/joints: Unremarkable. No acute fracture. Soft tissues: Unremarkable. IMPRESSION: No acute intracranial abnormality.
--- NOTE | 2022-01-09 23:02 | HMH.EDWEAK ---
ED Disposition Clinical Impression: Weakness Disposition: Home, Self-Care Condition on Discharge: Good Instructions: DI for Muscle Weakness Additional Instructions: call pcp for follow up Referrals: Juarez Griffin [Primary Care Provider] - - Critical Care Critical Care Time: No Attestation: On 01/09/22, the high probability of a clinically significant, sudden or life threatening deterioration of the following system(s) required my full and direct attention, intervention and personal management. The time I documented below is in addition to time spent performing reported procedures but includes the following listed in this critical care notation. Medical Decision Making - Medical Records Medical records reviewed: Yes: I reviewed the patient's medical records. - Harjinder Inquiry Pt receiving controlled substance: No Vital Signs: 01/09/22 20:35 Temperature 99.4 F Temperature Source Oral Pulse Rate [Left] 98 H Respiratory Rate 22 Blood Pressure [Right Arm] 127/78 Blood Pressure Mean [Right Arm] 94 02 Sat by Pulse Oximetry 99 Oxygen Delivery Method Room Air - Lab Data Lab results reviewed: Yes: I reviewed the patient's lab results. Lab Results 01/09/22 20:51: WBC 6.2, RBC 5.01, Hgb 11.7 L, Hct 38.2, MCV 76.4 L, MCH 23.3 L, MCHC 30.5 L, RDW 18.5 H, Plt Count 380, MPV 8.5, Neut % (Auto) 79.8, Lymph % (Auto) 11.7, [place] % (Auto) 5.2, Eos % (Auto) 2.6, Baso % (Auto) 0.7, Neut # (Auto) 5.0, Lymph # (Auto) 0.7, [place] # (Auto) 0.3, Eos # (Auto) 0.2, Baso # (Auto) 0.0, ESR 19 01/09/22 20:51: Sodium 134 L, Potassium 4.0, Chloride 99, Carbon Dioxide 26, Anion Gap 13.0, BUN 17, Creatinine 1.10 H, Estimated Creat Clear 52, Estimated GFR 53 L, Est GFR ( Amer) 64, Glucose 118 H D, Calcium 8.6, Total Bilirubin 0.5, AST 54 H, ALT 56, Alkaline Phosphatase 89, Total Protein 7.6, Albumin 4.5, Globulin 3.1, Albumin/Globulin Ratio 1.5, Amylase 60, Procalcitonin 0.168 01/09/22 21:54: Urine Color Yellow, Urine Appearance Clear, Urine pH 6.0, Ur Specific [place] 1.020, Urine Protein Negative, Urine Glucose (UA) Trace, Urine Ketones Negative, Urine Blood 3+, Urine Nitrate Negative, Urine Bilirubin Negative, Urine Urobilinogen 0.2, Ur Leukocyte Esterase Trace, Urine RBC 20-50, Urine WBC 5-10, Ur Squamous Epith Cells 3-5, Urine Bacteria Trace Result diagrams: 01/09/22 20:51 01/09/22 20:51 Orders (Tests/Meds): ED MEDICATIONS Generic Name Dose Route Start Last Admin Trade Name Freq PRN Reason Stop Dose Admin Sodium Chloride 1,000 mls @ 999 mls/hr 01/09/22 23:15 Sod Chlor 0.9% 1000ml Bag IV 01/10/22 00:15 .[id number] ARINA Discontinued Medications Generic Name Dose Route Start Last Admin Trade Name Freq PRN Reason Stop Dose Admin Ondansetron HCl 4 mg 01/09/22 21:10 01/09/22 21:28 Ondansetron 4mg/2ml Vial IV 01/09/22 21:11 4 mg ONCE ONE Administration ORDERS Category Date Time Status Urine Culture Stat Micro 01/09/22 21:54 Received - Radiology Data #1 Image(s): Chest Image Reviewed: Yes I have reviewed radiologist's interpretation Preliminary Findings: Normal/NAD - CT Data CT Scan: Head Time Received: 23:[address] Reviewed: Yes: I have viewed the radiologist's interpretation Preliminary Findings: Normal/NAD Medical Decision Narrative: doing ok with stable exam and labs - nonspecific hematuria but has had on several u/a - will culture and ask pt to discuss with pcp Weakness HPI - General Chief complaint: Weakness Stated complaint: SOB,Muscle pain,confussion Time Seen by Provider: 01/09/22 23:02 Mode of Arrival: Wheelchair Source of Information: Patient, Spouse, Medical Record Limitations: No Limitations Description of Symptoms (Recalled from ER Triage Doc. by RN): pt reports that she was at the store today grocery shopping and became weak and confused pt states that she wasusing her o2 at the time but shana schreiber has her on fluid restriction and she thinks she is possibly deh
[2022-01-09 23:38] VITALS: BP 120/63; PULSE 104; RESP 16; TEMP 37.2; O2SAT 98
== END 2022-01-09 23:40 | disposition home or self-care (01) ==
PROVIDERS: Emergency Provider Emergency Medicine; PCP Internal Medicine
DX: M79.10 Myalgia, unspecified site (principal); R53.1 Weakness; R06.02 Shortness of breath; R41.0 Disorientation, unspecified; R00.2 Palpitations; I11.0 Hypertensive heart disease with heart failure; I50.9 Heart failure, unspecified; J44.9 Chronic obstructive pulmonary disease, unspecified; E11.9 Type 2 diabetes mellitus without complications; Z79.1 Long term (current) use of non-steroidal anti-inflammatories (NSAID); Z79.51 Long term (current) use of inhaled steroids; Z79.84 Long term (current) use of oral hypoglycemic drugs; Z79.899 Other long term (current) drug therapy; Z88.6 Allergy status to analgesic agent; Z88.8 Allergy status to other drugs, medicaments and biological substances; Z91.030 Bee allergy status
CPT/HCPCS: 70450; 71046; 80053; 81001; 82150; 84145; 85025; 85651; 87086; 96360; 99284; J2405

== ENCOUNTER → 2022-01-31 14:37 | Outpatient (CLI) | payer OTHER, SELFPAY ==
--- NOTE | 2022-01-31 14:40 | XR_ITS ---
FINAL REPORT CLINICAL HISTORY: RT SHOULDER PAIN FINDINGS: RIGHT SHOULDER Three views were obtained. There is no acute fracture or dislocation. There is mild acromioclavicular joint degenerative change. There is mild elevation of the distal clavicle, mild AC separation is not excluded. No soft tissue abnormality is identified. IMPRESSION: Possible mild AC separation. Reviewed, Interpreted and Dictated by Clinton Argueta III, MD Transcribed by Terri Davis Authenticated by Clinton Argueta III, MD on 01/31/2022 03:58:04 PM [facility]
== END ==
PROVIDERS: PCP Internal Medicine; Visit Provider Internal Medicine
DX: M25.511 Pain in right shoulder (principal)
CPT/HCPCS: 73030

== ENCOUNTER 2022-03-05 23:51 | Emergency (ER) | payer OTHER, SELFPAY ==
[2022-03-05 23:52] VITALS: BP 121/65; PULSE 86; RESP 20; TEMP 36.6; O2SAT 97; BMI 47.8
--- NOTE | 2022-03-05 23:52 | ECG_ITS ---
APPROVED REPORT Exam: Resting ECG HR:87 bpm ECG Measurements Heart Rate 87 AXES AZ 152 P 45 QRSd 89 QRS 34 QT 364 T 27 QTc 409 Conclusion SINUS RHYTHM LOW QRS VOLTAGE IN PRECORDIAL LEADS [QRS DEFLECTION < 1.0 mV IN CHEST LEADS] BORDERLINE ECG UNCONFIRMED REPORT Electronically signed by : Ahsan Chew MD 03/06/2022 21:06:53
[2022-03-06 00:07] LABS: Basophils # 0.2 K/mm3 (0-0.2); Basophils % 1.1 % (0.1-2.0); Eosinophils # 0.2 K/mm3 (0.0-0.4); Eosinophils % 1.1 % (0.1-12.0); Hematocrit 34.9 % (37.0-47.0); Hemoglobin 11.2 g/dL (12.2-16.2); Lymphocytes # 3.7 K/mm3 (0.7-4.5); Lymphocytes % 24.5 % (10-50); Mean Corpuscular Hemoglobin 23.2 pg (27.0-31.2); Mean Corpuscular Volume 72.3 fl (81-99); Mean Platelet Volume 8.5 fl (7.4-10.4); Monocytes # 0.5 K/mm3 (0.1-1.0); Monocytes % 3.5 % (1.7-9.3); Neutrophils # 10.5 K/mm3 (1.8-7.8); Neutrophils % 69.8 % (37.0-80.0); Platelet Count 583 K/mm3 (142-424); Red Blood Count 4.83 M/mm3 (4.20-5.40); Red Cell Distribution Width 15.6 % (11.5-17.5); White Blood Count 15.1 K/mm3 (4.8-10.8)
--- NOTE | 2022-03-06 00:07 | HMH.EDCP ---
ED Disposition Clinical Impression: Diastolic dysfunction Chest pain Qualifiers: Chest pain type: precordial pain Qualified Code(s): R07.2 - Precordial pain Disposition: Home, Self-Care Condition on Discharge: Good Instructions: DI for Chest Pain Additional Instructions: see card for follow up Referrals: Juarez Griffin [Primary Care Provider] - Lamin Zhao MD [Staff Physician] - - Critical Care Critical Care Time: No Attestation: On , the high probability of a clinically significant, sudden or life threatening deterioration of the following system(s) required my full and direct attention, intervention and personal management. The time I documented below is in addition to time spent performing reported procedures but includes the following listed in this critical care notation. Medical Decision Making - Medical Records Medical records reviewed: Yes: I reviewed the patient's medical records. - Harjinder Inquiry Pt receiving controlled substance: No Vital Signs: 03/05/22 23:52 Temperature 97.8 F Temperature Source Oral Pulse Rate [Right] 86 Respiratory Rate 20 Blood Pressure [Right Arm] 121/65 Blood Pressure Mean [Right Arm] 83 02 Sat by Pulse Oximetry 97 - Lab Data Lab results reviewed: Yes: I reviewed the patient's lab results. Lab Results 03/06/22 00:00: WBC 15.1 H, RBC 4.83, Hgb 11.2 L, Hct 34.9 L, MCV 72.3 L, MCH 23.2 L, MCHC 32.0, RDW 15.6, Plt Count 583 H, MPV 8.5, Neut % (Auto) 69.8, Lymph % (Auto) 24.5, Bell % (Auto) 3.5, Eos % (Auto) 1.1, Baso % (Auto) 1.1, Neut # (Auto) 10.5 H, Lymph # (Auto) 3.7, Bell # (Auto) 0.5, Eos # (Auto) 0.2, Baso # (Auto) 0.2, Total Counted 100, Neutrophils % (Manual) 70, Lymphocytes % (Manual) 30, Platelet Estimate Normal, Stomatocytes 1+ 03/06/22 00:00: Sodium 136, Potassium 3.5, Chloride 96 L, Carbon Dioxide 31 H, Anion Gap 12.5, BUN 18 H, Creatinine 0.80, Estimated Creat Clear 71, Estimated GFR 77, Est GFR ( Amer) 93, Glucose 148 H, Calcium 9.2, Total Bilirubin 0.4, Direct Bilirubin 0.1, Conjugated Bilirubin 0.0, Indirect Bilirubin 0.3, Unconjugated Bilirubin 0.3, AST 27, ALT 30, Alkaline Phosphatase 85, Troponin I < 0.01, C-Reactive Protein 8.8 H, Total Protein 7.5, Albumin 4.3 03/06/22 00:00: ESR 25 H 03/06/22 00:00: Procalcitonin 0.076 03/06/22 00:00: NT-Pro-B Natriuret Pep 83.1 Result diagrams: 03/06/22 00:00 03/06/22 00:00 Orders (Tests/Meds): ED MEDICATIONS Discontinued Medications Generic Name Dose Route Start Last Admin Trade Name Freq PRN Reason Stop Dose Admin Iopamidol 70 ml 03/06/22 00:45 03/06/22 00:46 Iopamidol-370 (76%);100ml Bottle IV 03/06/22 00:46 70 ml ONCE ONE Administration Nitroglycerin 1 gm 03/05/22 23:57 03/05/22 23:58 Nitroglycerin 1 Gm Ointment TD 03/05/22 23:58 1 gm ONCE ONE Administration Sodium Chloride 40 ml 03/06/22 00:45 03/06/22 00:46 0.9 % Sodium Chloride 50 Ml Vial IV 03/06/22 00:46 40 ml ONCE ONE Administration Sodium Chloride 10 ml 03/06/22 00:45 03/06/22 00:46 Sodium Chloride 0.9% 10ml Syr (Rad Only) IV 03/06/22 00:46 10 ml ONCE ONE Administration ORDERS Category Date Time Status Lactic Acid Stat Lab 03/06/22 01:20 Received Troponin I Q3H Lab 03/06/22 03:00 Ordered Troponin I Q3H Lab 03/06/22 06:00 Ordered Blood Culture Stat Micro 03/06/22 01:20 Received - Radiology Data #1 Image(s): Chest Image Reviewed: Yes I discussed the image results w/the radiologist Preliminary Findings: Normal/NAD - CT Data CT Scan: Chest Time Received: 01:[address] Reviewed: Yes: I have viewed the radiologist's interpretation Preliminary Findings: Normal/NAD - ECG Data Tracing #1 Normal Sinus Rhythm: Yes Ischemic changes: non-specific ST-T wave changes Medical Decision Narrative: see card this am for follow up Chest Pain HPI - General Chief Complaint: Chest Pain Stated Complaint: CHEST PAIN Time Seen by Provider: 03/06/22 00:07
[2022-03-06 00:09] LABS: MANUAL DIFFERENTIAL MANUAL DIFFERENTIAL (MANUAL DIFF)
[2022-03-06 00:20] LABS: Alanine Aminotransferase 30 U/L (12-78); Albumin Level 4.3 g/dl (3.5-5.0); Alkaline Phosphatase 85 U/L (38-126); Anion Gap 12.5 mEq/L (5-15); Aspartate Amino Transferase 27 U/L (14-36); Bilirubin,Direct 0.1 mg/dl (0.0-0.4); Bilirubin,Indirect 0.3 mg/dL (0.0-0.9); Bilirubin,Total 0.4 mg/dl (0.2-1.3); Bilirubin,Unconjugated 0.3 mg/dL (0.0-1.1); Blood Urea Nitrogen 18 mg/dl (7-17); Calcium 9.2 mg/dl (8.4-10.2); Carbon Dioxide 31 mmol/L (22.0-30.0); Chloride 96 mmol/L (98-107); Creatinine Clearance Estimated 71 mL/min (50-200); Estimated Glomerular Filt Rate 77 ml/min (>60); GFR (African American) 93 ML/MIN (>60); Glucose 148 mg/dl (74-100); Potassium 3.5 mmoL/L (3.5-5.1); Sodium 136 mmol/L (136-145); Total Protein,Serum 7.5 g/dl (6.3-8.2)
[2022-03-06 00:26] LABS: C-Reactive Protein 8.8 mg/L (0-4)
--- NOTE | 2022-03-06 00:30 | XR_ITS ---
PROCEDURE INFORMATION: Exam: XR Chest Exam date and time: 03/06/2022 12:25 AM Age: 46 years old Clinical indication: Shortness of breath; Prior surgery; Additional info: Chest pain, SOB TECHNIQUE: Imaging protocol: XR of the chest. Views: 2 views. COMPARISON: CT ANGIO CHEST PE PROTOCOL 03/06/2022 12:03 AM FINDINGS: Tubes, catheters and devices: There is a loop recorder in place. There are clips present within the right upper quadrant of the abdomen, compatible with prior cholecystectomy. Lungs: Unremarkable. No consolidation. Pleural spaces: Unremarkable. No pleural effusion. No pneumothorax. Heart/Mediastinum: Unremarkable. No cardiomegaly. Bones/joints: Unremarkable. IMPRESSION: No acute findings.
--- NOTE | 2022-03-06 00:30 | CT_ITS ---
PROCEDURE INFORMATION: Exam: CTA Chest With Contrast Exam date and time: 03/06/2022 12:03 AM Age: 46 years old Clinical indication: Shortness of breath; Prior surgery TECHNIQUE: Imaging protocol: Computed tomographic angiography of the chest with contrast. 3D rendering (Not supervised by radiologist): MIP and/or 3D reconstructed images were created by the technologist. Radiation optimization: All CT scans at this facility use at least one of these dose optimization techniques: automated exposure control; mA and/or kV adjustment per patient size (includes targeted exams where dose is matched to clinical indication); or iterative reconstruction. Contrast material: ISOVUE 370; Contrast volume: 70 ml; Contrast route: INTRAVENOUS (IV); COMPARISON: CT ANGIO CHEST PE PROTOCOL 04/23/2021 12:40 AM FINDINGS: Pulmonary arteries: The pulmonary trunk, main, and branch pulmonary arteries contain no filling defects. Aorta: Unremarkable. No aortic aneurysm. No aortic dissection. Lungs: Unremarkable. No consolidation. No masses. Pleural spaces: Unremarkable. No pneumothorax. No pleural effusion. Heart: No cardiomegaly. No pericardial effusion. Heart RV/LV ratio: Within normal limits. Coronary arteries: There is no evidence of significant coronary artery calcifications. Mediastinal space: No evidence of mediastinal or hilar mass. Lymph nodes: Unremarkable. No enlarged lymph nodes. Bones/joints: Unremarkable. No acute fracture. Soft tissues: Hepatosplenomegaly. Cholecystectomy has been performed. There is a 14 mm nonobstructing nephrolith present within the interpolar region of the right kidney. IMPRESSION: 1. No evidence of main or branch pulmonary embolism. 2. No evidence of acute process within the chest. 3. Hepatosplenomegaly. Cholecystectomy has been performed. 4. 14 mm nonobstructing nephrolith within the interpolar region of the right kidney.
[2022-03-06 00:33] LABS: Erythrocyte Sedimentation Rate 25 mm/hr (0-20); NT Pro Brain Natriuretic Pep. 83.1 pg/mL (0-125)
[2022-03-06 00:39] LABS: Procalcitonin 0.076 ng/mL (0.0-2.0); Troponin I < 0.01 ng/ml (0.00-0.034)
[2022-03-06 01:22] LABS: Lymphocytes % 30 % (10-50); Neutrophils % 70 % (42-76); Total Cells Counted 100
[2022-03-06 01:23] LABS: Platelet Estimate Normal; Stomatocytes 1+
[2022-03-06 01:58] LABS: Lactic Acid 1.5 mmol/L (0.7-2.1)
[2022-03-06 02:15] VITALS: BP 113/67; PULSE 94; RESP 20; TEMP 36.6; O2SAT 97
== END 2022-03-06 02:20 | disposition home or self-care (01) ==
PROVIDERS: Emergency Provider Emergency Medicine; PCP Internal Medicine
DX: R07.2 Precordial pain (principal); R06.09 Other forms of dyspnea; J44.9 Chronic obstructive pulmonary disease, unspecified; E11.9 Type 2 diabetes mellitus without complications; I10 Essential (primary) hypertension; R00.2 Palpitations; Z79.899 Other long term (current) drug therapy
CPT/HCPCS: 71046; 71275; 80048; 80076; 83605; 83880; 84145; 84484; 85007; 85025; 85651; 86140; 87040; 87077; 87186; 93005; 96374; 99284; Q9967

== ENCOUNTER 2022-03-09 03:34 | Inpatient (IN) | payer OTHER, SELFPAY ==
[2022-03-09] VITALS (49 sets, daily range): BP systolic 55–132; BP diastolic 30–74; PULSE 50–71; RESP 15–25; TEMP 36.4–37.2; O2SAT 94–100; BMI 47.8; BMI 52.1; BMI 50.3
--- NOTE | 2022-03-09 03:32 | ECG_ITS ---
APPROVED REPORT Exam: Resting ECG HR:57 bpm ECG Measurements Heart Rate 57 AXES NH 148 P 50 QRSd 90 QRS 63 QT 440 T 65 QTc 433 Conclusion SINUS BRADYCARDIA MINIMAL ST DEPRESSION [0.025+ mV ST DEPRESSION] BORDERLINE ECG UNCONFIRMED REPORT Electronically signed by : Ahsan Chew MD 03/10/2022 07:53:52
[2022-03-09 03:49] LABS: POC Glucose,Bedside 162 (70-110)
--- NOTE | 2022-03-09 04:08 | XR_ITS ---
PROCEDURE INFORMATION: Exam: XR Chest Exam date and time: 03/09/2022 4:24 AM Age: 46 years old Clinical indication: Pain; Chest pressure; Additional info: Cp TECHNIQUE: Imaging protocol: XR of the chest. Views: 1 view. COMPARISON: CR XR CHEST 2V 03/06/2022 12:25 AM FINDINGS: Lungs: Unremarkable. No consolidation. Pleural spaces: Unremarkable. No pleural effusion. No pneumothorax. Heart/Mediastinum: Unremarkable. No cardiomegaly. Bones/joints: Unremarkable. IMPRESSION: No acute findings.
--- NOTE | 2022-03-09 04:09 | CT_ITS ---
PROCEDURE INFORMATION: Exam: CT Head Without Contrast Exam date and time: 03/09/2022 4:10 AM Age: 46 years old Clinical indication: Speech disturbance; Additional info: Head, nihss 2 TECHNIQUE: Imaging protocol: Computed tomography of the head without contrast. Radiation optimization: All CT scans at this facility use at least one of these dose optimization techniques: automated exposure control; mA and/or kV adjustment per patient size (includes targeted exams where dose is matched to clinical indication); or iterative reconstruction. COMPARISON: CT HEAD/BRAIN WO CON 01/09/2022 10:47 PM FINDINGS: Brain: Normal. No hemorrhage. Unremarkable white matter. No mass effect. Cerebral ventricles: No ventriculomegaly. Paranasal sinuses: Visualized sinuses are unremarkable. No fluid levels. Mastoid air cells: Visualized mastoid air cells are well aerated. Bones/joints: Unremarkable. No acute fracture. Soft tissues: Unremarkable. IMPRESSION: No acute intracranial abnormality.
[2022-03-09 04:14] LABS: Microscopic, Urine URINE MICROSCOPIC (MICROSCOPIC)
--- NOTE | 2022-03-09 04:14 | PC.NURSE ---
Pt gone to RAD
[2022-03-09 04:19] LABS: Appearance,Urine CLEAR (Clear); Bilirubin,Urine Negative (Negative); Blood, Urine Negative (Negative); Color,Urine YELLOW (Yellow); Glucose,Urine (UA) 1+ (Negative); Ketones,Urine Negative (Negative); Leukocyte Esterase,Urine 1+ (Negative); Nitrate,Urine Negative (Negative); Protein,Urine Negative (Negative); Specific Gravity, Urine 1.015 (1.005-1.030); Urobilinogen,Urine 0.2 EU/dl (0.2)
[2022-03-09 04:22] LABS: Basophils % 0.2 % (0.1-2.0); Eosinophils # 0.9 K/mm3 (0.0-0.4); Eosinophils % 4.9 % (0.1-12.0); Hematocrit 30.8 % (37.0-47.0); Hemoglobin 9.8 g/dL (12.2-16.2); Lymphocytes # 1.1 K/mm3 (0.7-4.5); Lymphocytes % 6.3 % (10-50); Mean Corpuscular HGB Conc 31.7 g/dL (31.8-35.4); Mean Corpuscular Hemoglobin 23.2 pg (27.0-31.2); Mean Corpuscular Volume 73.2 fl (81-99); Monocytes # 0.5 K/mm3 (0.1-1.0); Monocytes % 2.9 % (1.7-9.3); Neutrophils # 15.4 K/mm3 (1.8-7.8); Neutrophils % 85.7 % (37.0-80.0); Platelet Count 511 K/mm3 (142-424); Red Blood Count 4.22 M/mm3 (4.20-5.40); Red Cell Distribution Width 16.1 % (11.5-17.5)
[2022-03-09 04:24] LABS: Coronavirus 19, PCR Not Detected (NotDetected); Influenza A, PCR Not Detected (NotDetected); Influenza B, PCR Not Detected (NotDetected)
--- NOTE | 2022-03-09 04:25 | HMH.EDCP ---
ED Disposition Clinical Impression: Severe sepsis with acute organ dysfunction, Septic shock, Diastolic dysfunction Ovarian cyst Qualifiers: Laterality: right Qualified Code(s): N83.201 - Unspecified ovarian cyst, right side Disposition: Admitted As Inpatient Condition on Discharge: Good - Critical Care Critical Care Time: No Attestation: On 03/09/22, the high probability of a clinically significant, sudden or life threatening deterioration of the following system(s) required my full and direct attention, intervention and personal management. The time I documented below is in addition to time spent performing reported procedures but includes the following listed in this critical care notation. Medical Decision Making - Medical Records Medical records reviewed: Yes: I reviewed the patient's medical records. - Harjinder Inquiry Pt receiving controlled substance: No Vital Signs: 03/09/22 03:34 03/09/22 03:48 03/09/22 04:00 Temperature 97.5 F L 98.8 F Temperature Source Oral Rectal Pulse Rate 55 L 60 Pulse Rate [Left] 56 L Respiratory Rate 18 25 H 15 Blood Pressure 81/44 L Blood Pressure [Right Arm] 64/37 L Blood Pressure Mean Blood Pressure Mean [Right Arm] 46 Blood Pressure Source Blood Pressure Position 02 Sat by Pulse Oximetry 98 99 98 Oxygen Delivery Method Nasal Cannula Nasal Cannula Nasal Cannula Oxygen Flow Rate (LPM) 2 2 2 03/09/22 04:31 03/09/22 04:35 03/09/22 04:51 Temperature Temperature Source Pulse Rate 59 L 54 L 58 L Pulse Rate [Left] Respiratory Rate 20 25 H 22 Blood Pressure 75/42 L 68/34 L 55/30 L Blood Pressure [Right Arm] Blood Pressure Mean 45 Blood Pressure Mean [Right Arm] Blood Pressure Source Blood Pressure Position 02 Sat by Pulse Oximetry 97 100 98 Oxygen Delivery Method Nasal Cannula Nasal Cannula Nasal Cannula Oxygen Flow Rate (LPM) 2 2 2 03/09/22 05:16 03/09/22 05:30 03/09/22 06:00 Temperature Temperature Source Pulse Rate 56 L 56 L 59 L Pulse Rate [Left] Respiratory Rate 23 19 23 Blood Pressure 70/39 L 70/39 L 69/35 L Blood Pressure [Right Arm] Blood Pressure Mean 45 43 Blood Pressure Mean [Right Arm] Blood Pressure Source Blood Pressure Position 02 Sat by Pulse Oximetry 100 100 98 Oxygen Delivery Method Nasal Cannula Nasal Cannula Nasal Cannula Oxygen Flow Rate (LPM) 2 2 2 03/09/22 06:30 03/09/22 07:10 03/09/22 07:14 Temperature Temperature Source Pulse Rate 56 L 63 58 L Pulse Rate [Left] Respiratory Rate 17 21 22 Blood Pressure 78/40 L 73/44 L 73/44 L Blood Pressure [Right Arm] Blood Pressure Mean 52 Blood Pressure Mean [Right Arm] Blood Pressure Source Manual Cuff/ Auscultation Automatic Cuff Blood Pressure Position Sitting 02 Sat by Pulse Oximetry 100 98 100 Oxygen Delivery Method Nasal Cannula Nasal Cannula Nasal Cannula Oxygen Flow Rate (LPM) 2 2 2 03/09/22 07:31 03/09/22 08:01 03/09/22 08:36 Temperature Temperature Source Pulse Rate 55 L 62 58 L Pulse Rate [Left] Respiratory Rate 15 15 18 Blood Pressure 75/42 L 73/33 L 73/39 L Blood Pressure [Right Arm] Blood Pressure Mean Blood Pressure Mean [Right Arm] Blood Pressure Source Automatic Cuff Automatic Cuff Automatic Cuff Blood Pressure Position Sitting Sitting Sitting 02 Sat by Pulse Oximetry 100 100 99 Oxygen Delivery Method Nasal Cannula Nasal Cannula Nasal Cannula Oxygen Flow Rate (LPM) 2 2 2 03/09/22 09:16 Temperature Temperature Source Pulse Rate 66 Pulse Rate [Left] Respiratory Rate 20 Blood Pressure 91/51 L Blood Pressure [Right Arm] Blood Pressure Mean Blood Pressure Mean [Right Arm] Blood Pressure Source Automatic Cuff Blood Pressure Position Sitting 02 Sat by Pulse Oximetry 99 Oxygen Delivery Method Nasal Cannula Oxygen Flow Rate (LPM) 2 - Lab Data Lab results reviewed: Yes: I reviewed the patient's lab results. Lab Results 03/09/22 03:37: ESR 64 H
[2022-03-09 04:28] LABS: C-Reactive Protein 80.9 mg/L (0-4); Procalcitonin 20.1 ng/mL (0.0-2.0); Troponin I < 0.01 ng/ml (0.00-0.034)
[2022-03-09 04:29] LABS: Alanine Aminotransferase 91 U/L (12-78); Albumin Level 3.4 g/dl (3.5-5.0); Alkaline Phosphatase 69 U/L (38-126); Anion Gap 12.6 mEq/L (5-15); Aspartate Amino Transferase 76 U/L (14-36); Bilirubin,Unconjugated 0.2 mg/dL (0.0-1.1); Blood Urea Nitrogen 24 mg/dl (7-17); Calcium 8.7 mg/dl (8.4-10.2); Carbon Dioxide 26 mmol/L (22.0-30.0); Chloride 97 mmol/L (98-107); Creatinine Clearance Estimated 36 mL/min (50-200); Estimated Glomerular Filt Rate 37 ml/min (>60); GFR (African American) 45 ML/MIN (>60); Glucose 156 mg/dl (74-100); Magnesium 1.8 mg/dl (1.6-2.3); Potassium 3.6 mmoL/L (3.5-5.1); Sodium 132 mmol/L (136-145); Total Protein,Serum 6.2 g/dl (6.3-8.2)
[2022-03-09 04:31] LABS: NT Pro Brain Natriuretic Pep. 485 pg/mL (0-125)
[2022-03-09 04:32] LABS: Lactic Acid 2.8 mmol/L (0.7-2.1); MANUAL DIFFERENTIAL MANUAL DIFFERENTIAL (MANUAL DIFF)
--- NOTE | 2022-03-09 04:43 | CT_ITS ---
PROCEDURE INFORMATION: Exam: CT Abdomen And Pelvis With Contrast Exam date and time: 03/09/2022 5:01 AM Age: 46 years old Clinical indication: Vomiting; Abdominal pain; Generalized TECHNIQUE: Imaging protocol: Computed tomography of the abdomen and pelvis with contrast. Radiation optimization: All CT scans at this facility use at least one of these dose optimization techniques: automated exposure control; mA and/or kV adjustment per patient size (includes targeted exams where dose is matched to clinical indication); or iterative reconstruction. Contrast material: ISOVUE; Contrast volume: 60 ml; Contrast route: IV; COMPARISON: ABDPELW/O CT ABD PELVIS W/O CONTRAST 08/16/2017 1:14 PM FINDINGS: Liver: The liver is diffusely low in density. Gallbladder and bile ducts: The patient is status post cholecystectomy. Pancreas: Normal. No ductal dilation. Spleen: Normal. No splenomegaly. Adrenal glands: Normal. No mass. Kidneys and ureters: There is a prominent stone in the right renal collecting system measuring 15 mm in diameter. Several left renal stones are noted the largest measuring 12 mm in diameter. No hydronephrosis hydroureter or urolithiasis is present. There is a large homogeneous Erica low attenuation cystic lesion within the right pelvis this measures 11.8 x 11.4 x 10.6 cm in diameter. Stomach and bowel: Unremarkable. No obstruction. No mucosal thickening. Appendix: No evidence of appendicitis. Intraperitoneal space: Unremarkable. No free air. No significant fluid collection. Vasculature: Unremarkable. No abdominal aortic aneurysm. Lymph nodes: Unremarkable. No enlarged lymph nodes. Urinary bladder: Unremarkable as visualized. Reproductive: The uterus and left adnexa are otherwise unremarkable. Bones/joints: Unremarkable. No acute fracture. Soft tissues: Unremarkable. IMPRESSION: 1. Large cystic lesion in the right adnexa measuring 11.8 cm, new since prior examination. Further evaluation with prompt non-emergent ultrasound or prompt non-emergent MRI is recommended to characterize. (Reference: Glynn) 2. Diffuse hepatic steatosis. 3. Status post cholecystectomy. REFERENCES: Glynn et al. Management of Incidental Adnexal Findings on CT and MRI: A White Paper of the ACR Incidental Findings Committee, J Am Makenna Radiol. 2019;17(2):248-254.
--- NOTE | 2022-03-09 04:57 | PC.NURSE ---
called night-watch for vancomycin dosing, s/w Giuliana. She placed loading dose order in DEC.
[2022-03-09 05:08] LABS: Bacteria,Urine 1+ /lpf
[2022-03-09 05:09] LABS: Amylase 48 U/L (30-110); Lipase 38 U/L (23-300)
[2022-03-09 05:14] LABS: Benzodiazepines Screen,Urine Negative ng/ml (<200)
[2022-03-09 05:15] LABS: Amphetamine/Metha Screen,Urine Negative ng/ml (<1000); Barbiturates Screen,Urine Negative ng/ml (<200); Erythrocyte Sedimentation Rate 64 mm/hr (0-20)
[2022-03-09 05:16] LABS: Cannabinoid Screen,Urine Negative ng/ml (<50)
[2022-03-09 05:17] LABS: Cocaine Screen,Urine Negative ng/ml (<300); Methadone Screen,Urine Negative ng/ml (<300)
[2022-03-09 05:18] LABS: Opiate Screen,Urine Negative ng/ml (<300); Phencyclidine Screen,Urine Negative ng/ml (<25)
[2022-03-09 05:37] LABS: Bilirubin,Direct 0.1 mg/dl (0.0-0.4); Bilirubin,Indirect 0.2 mg/dL (0.0-0.9); Bilirubin,Total 0.3 mg/dl (0.2-1.3)
[2022-03-09 05:42] LABS: Eosinophils % 4 % (0-3); Lymphocytes % 4 % (10-50); Monocytes % 1 % (2-9); Neutrophils % 91 % (42-76); Total Cells Counted 100
[2022-03-09 05:44] LABS: Hypochromasia 2+; Platelet Estimate Normal
--- NOTE | 2022-03-09 06:25 | US_ITS ---
FINAL REPORT TECHNIQUE: Transabdominal and transvaginal images of the pelvis were obtained. CLINICAL HISTORY: mass seen on ct in er-- done port in er-- diff scan COMPARISON: CT 2 hours prior FINDINGS: The uterus measures 13.6 x 6.9 x 5.4 cm. The endometrium is thickened up to 2.1 cm. The right ovary measures 12.2 x 11.6 x 9.0 cm. There is an 11.2 x 10.9 x 8.9 cm cystic mass in the right ovary. The left ovary measures 5.7 x 4.1 x 3.9 cm. There are small cysts in the left ovary. IMPRESSION: 11.2 cm cystic mass in the right ovary could represent a cyst versus cystic neoplasm. Thickened endometrium. Enlarged uterus. Reviewed, Interpreted and Dictated by Clinton Argueta III, MD Transcribed by Chava Vanegas Authenticated by Clinton Argueta III, MD on 03/09/2022 09:58:29 AM [facility]
--- NOTE | 2022-03-09 06:46 | CA_ITS ---
APPROVED REPORT EXAM: Comprehensive 2D, Doppler, and color-flow Echocardiogram Barback: Emily Burger RT(R) Ht: 5 ft 3 in Wt: 270lbs BSA: 2.20 BP: 81/44 mmHg Indications: CP, COPD, palpitations, fatigue, HTN, DM, BYNUM, DD, CHF 2D Dimensions LVOT 1.92 cm (M/F) 1.5-2.5 LA Volume 45.60 mL LA Volume Index 20.82 mL/m2 (M/F) 16-34 M-Mode Dimensions RVDd 4.12 cm (0.9-2.6) LA Diam 3.54 cm (1.9-4.0) LVDd 4.63 cm (3.5-5.7) Ao Diam 2.30 cm (2.0-3.7) LVDs 3.57 cm (3.5-5.7) IVSd 0.81 cm (0.6-1.1) PWd 1.10 cm (0.6-1.1) EF (Teich) 46.10% FS 22.90% EDV (Teich) 98.80 mL ESV (Teich) 53.30 mL LV Diastology E Decel Time 247.00 (160-240 msec) E/A Ratio 1.1 MED E' 9.00 (< 7 cm/sec) E'/MED E' Ratio 10.32 (>14) LAT E' 10.00 (<10 cm/sec) E/LAT E' Ratio 9.29 (>14) Mitral Valve MV E Max Lorenzo. 93.00 (40-130 cm/s) MV A Velocity 86.00 (40-130 cm/s) E/A Ratio 1.08 MV Decel. Time 247.00 (160-240 ms) MV PHT 72.00 ms Left Ventricle Left atrium is mildly enlarged, left ventricle is normal size, mild concentric left ventricular hypertrophy, estimated ejection fraction 55% with no regional wall motion abnormality, diastolic parameters are inconclusive. Right Ventricle Right atrium and right ventricle are mildly enlarged with normal contractility. Aortic Valve Aortic valve is minimally thickened and fibrosed there is no aortic stenosis aortic insufficiency. Mitral Valve Mitral valve grossly normal, there is trace mitral regurgitation. Tricuspid Valve Tricuspid valve grossly normal, there is trace tricuspid regurgitation, tricuspid regurgitation jet velocity is inadequate for calculation of the right ventricular systolic pressure. Pulmonic Valve Pulmonic valve is poorly visualized. Great Vessels Aortic root is normal size. Inferior vena cava is poorly visualized. Pericardium No significant pericardial effusion noted. Conclusion 1. Biatrial enlargement, normal left ventricular size, mild concentric left ventricular hypertrophy, estimated ejection fraction 55% with no regional wall motion abnormality, diastolic parameters are inconclusive. 2. Mildly enlarged right ventricle with normal contractility. 3. Trace mitral and tricuspid regurgitation. 4. No significant pericardial effusion. 5. Inferior vena cava is poorly visualized. Electronically signed by : Mirza Bowser MD 03/09/2022 14:55:59
--- NOTE | 2022-03-09 06:50 | PC.NURSE ---
called [facility] lab to notify need for echo in ER, they did not answer. Called 2nd floor and tech was on the floor, message left with steward/stewardess bath to have entry level installation technician call ER.
--- NOTE | 2022-03-09 07:00 | PC.NURSE ---
Called radiology to notify pt needs pelvic u/s. State u/s tech will be here @ 0740.
--- NOTE | 2022-03-09 07:34 | PC.NURSE ---
Receieved report from Andreea Jiménez RN. Advises pt has been given fluid bolus and vancomycin has been started but MD has not determined a true source of infection at this time. Went in and assessed pt, she was laying in bed A&O times 3. Pt advised at this time she was feeling much better than when she came in. No new needs
--- NOTE | 2022-03-09 07:39 | PC.NURSE ---
Echo finished at this time, spoke with Dr. Lawson. Felipa from rad coming done to complete US at bedside
--- NOTE | 2022-03-09 08:01 | PC.NURSE ---
ROSE Leo has completed ultrasound exam
[2022-03-09 08:08] LABS: Hemoglobin A1C 6.3 % (4.0-6.0)
--- NOTE | 2022-03-09 08:10 | PC.NURSE ---
Dr. Lawson at speaking with patient and family
[2022-03-09 08:14] LABS: Reflex Lactic Add Lactic Reflex
--- NOTE | 2022-03-09 08:15 | PC.NURSE ---
Contacted Care management and spoke with Liliam regarding patient admission
--- NOTE | 2022-03-09 08:19 | PC.NURSE ---
0819 bed assignment requested, room [id number]. all staff notified
--- NOTE | 2022-03-09 08:22 | PC.NURSE ---
Called pharmacy for antibiotics
--- NOTE | 2022-03-09 08:28 | PC.NURSE ---
lactic drawn and sent to lab
[2022-03-09 08:29] LABS: Troponin I < 0.01 ng/ml (0.00-0.034)
--- NOTE | 2022-03-09 08:47 | HMH.PHAVTE ---
[facility] Pharmacy VTE Monitoring - Patient Demographics Admission date: 03/09/22 Report Date: 03/09/22 Time: 08:48 Allergies/Adverse Reactions: Patient Allergies aspirin Allergy (Severe, Verified 03/09/22 04:29) S-DIFF. BREATHING bee venom protein (honey bee) Allergy (Severe, Verified 03/09/22 04:29) Anaphylaxis Bleach (Sodium Hypochlorite) Allergy (Severe, Verified 03/09/22 04:29) diff. breathing, dizzy pneumococcal vaccine Allergy (Verified 03/09/22 04:29) sucralose [From SUCRALOSE (FOOD/DRUG)] Adverse Reaction (Severe, Verified 03/09/22 04:29) breathing problems Height: 1.57 m Weight: 129.274 kg - VTE Risk Labs: VTE Related Lab Results Hgb 9.8 g/dL (12.2-16.2) L 03/09/22 03:37 Hct 30.8 % (37.0-47.0) L 03/09/22 03:37 Plt Count 511 K/mm3 (142-424) H 03/09/22 03:37 BUN 24 mg/dl (7-17) H 03/09/22 03:37 Creatinine 1.50 mg/dl (0.52-1.04) H 03/09/22 03:37 Estimated Creat Clear 36 mL/min (50-200) 03/09/22 03:37 Clinical Trial Participant: No - Prophylaxis VTE Prophylaxis Ordered?: Yes Types of VTE Prophylaxis: TEDS Knee High
[2022-03-09 08:51] LABS: Lactic Acid Follow Up (RFLX 1) 1.5 mmol/L (0.7-2.1)
--- NOTE | 2022-03-09 08:59 | HMH.PHAINT ---
home medication list verified using list from outpatient pharmacy and pt history
--- NOTE | 2022-03-09 09:14 | HMH.PHACONS ---
- Pharmacy Consult Date: 03/09/22 Time: 09:14 Referring provider: DR. SMALL Reason for Consult:: VANCOMYCIN DOSING Allergies and ADEs:: Allergies Allergy/AdvReac Type Severity Reaction Status Date / Time aspirin Allergy Severe S-DIFF. Verified 03/09/22 04:29 BREATHING bee venom protein (honey bee) Allergy Severe Anaphylaxis Verified 03/09/22 04:29 Bleach (Sodium Hypochlorite) Allergy Severe diff. Verified 03/09/22 04:29 breathing, dizzy pneumococcal vaccine Allergy Verified 03/09/22 04:29 sucralose AdvReac Severe breathing Verified 03/09/22 04:29 [From SUCRALOSE (FOOD/DRUG)] problems Home Medications:: Home Medications Medication Instructions Recorded Confirmed Type ferrous sulfate 325 mg (65 mg 325 mg PO DAILY 02/22/20 03/09/22 History iron) tablet nitroglycerin 0.4 mg sublingual 0.4 mg SUBLINGUAL Q5MINP PRN tab 02/22/20 03/09/22 History tablet omeprazole 40 mg capsule,delayed 40 mg PO DAILY cap 02/22/20 03/09/22 History release tizanidine 4 mg capsule 4 mg PO TIDP PRN 02/22/20 03/09/22 History ibuprofen 800 mg tablet 800 mg PO TIDP PRN 05/30/20 03/09/22 History Fluticasone/Salmeterol [Advair 1 puff IH BID 12/21/21 03/09/22 History 250/50mcg Diskus] Metformin HCl [Metformin 1000mg 500 mg PO BID 12/21/21 03/09/22 History Tablets] Nebivolol HCl 5 mg PO DAILY 12/21/21 03/09/22 History Sacubitril/Valsartan [Entresto 24 1 tab PO BID 12/22/21 03/09/22 History mg-26 mg Tablet] Tramadol HCl [Tramadol 50mg 50 mg PO Q6HP PRN 12/22/21 03/09/22 History Tab] albuterol sulfate 90 mcg/actuation 1 inh INHALATION ONCE PRN g 12/28/21 03/09/22 History aerosol inhaler Dapagliflozin Propanediol [Farxiga] 10 mg PO DAILY 01/09/22 03/09/22 History furosemide 40 mg tablet 40 mg PO DIRECTED #324 tab 02/05/22 03/09/22 Rx Spironolactone 50 mg PO DAILY 03/09/22 03/09/22 History Sulfamethoxazole/Trimethoprim 1 tab PO BID 03/09/22 03/09/22 History [Sulfamethoxazole-Tmp Ds Tablet*] Height: 1.57 m Weight: 129.274 kg Laboratory Results:: Laboratory Results - last 24 hr 03/09/22 03:37: ESR 64 H 03/09/22 03:37: Troponin I < 0.01, C-Reactive Protein 80.9 H, Procalcitonin 20.1 H 03/09/22 03:37: WBC 18.0 H, RBC 4.22, Hgb 9.8 L, Hct 30.8 L, MCV 73.2 L, MCH 23.2 L, MCHC 31.7 L, RDW 16.1, Plt Count 511 H, MPV 8.0, Neut % (Auto) 85.7 H, Lymph % (Auto) 6.3 L, [place] % (Auto) 2.9, Eos % (Auto) 4.9, Baso % (Auto) 0.2, Neut # (Auto) 15.4 H, Lymph # (Auto) 1.1, [place] # (Auto) 0.5, Eos # (Auto) 0.9 H, Baso # (Auto) 0.0, Total Counted 100, Neutrophils % (Manual) 91 H, Lymphocytes % (Manual) 4 L, Monocytes % (Manual) 1 L, Eosinophils % (Manual) 4 H, Platelet Estimate Normal, Hypochromasia 2+ 03/09/22 03:37: Sodium 132 L, Potassium 3.6, Chloride 97 L, Carbon Dioxide 26, Anion Gap 12.6, BUN 24 H, Creatinine 1.50 H, Estimated Creat Clear 36, Estimated GFR 37 L, Est GFR ( Amer) 45 L, Glucose 156 H, Calcium 8.7, Magnesium 1.8, Total Bilirubin 0.3, Direct Bilirubin 0.1, Conjugated Bilirubin 0.0, Indirect Bilirubin 0.2, Unconjugated Bilirubin 0.2, AST 76 H, ALT 91 H, Alkaline Phosphatase 69, NT-Pro-B Natriuret Pep 485 H, Total Protein 6.2 L, Albumin 3.4 L 03/09/22 03:37: Lactate 2.8 H 03/09/22 03:37: Urine Color Yellow, Urine Appearance Clear, Urine pH 5.0, Ur Specific [place] 1.015, Urine Protein Negative, Urine Glucose (UA) 1+, Urine Ketones Negative, Urine Blood Negative, Urine Nitrate Negative, Urine Bilirubin Negative, Urine Urobilinogen 0.2, Ur Leukocyte Esterase 1+ A, Urine RBC 3-5, Urine WBC 5-10, Ur Squamous Epith Cells 3-5, Urine Bacteria 1+ 03/09/22 03:37: Urine Opiates Screen Negative, Urine Methadone Screen Negative, Ur Barbituates Screen Negative, Ur Phencyclidine Scrn Negative, Ur Amphetamines Screen Negative, U Benzodiazepines Scrn Negative, Urine Cocaine Screen Negative, U Marijuana (THC) Screen Negative 03/09/22 03:37: Amylase 48, Lipase 38 03/09/22 03:37: Hemoglobin A1c 6.3 H 03/09/22 03:4
--- NOTE | 2022-03-09 09:19 | PC.NURSE ---
Dr. Lawson at bedside
--- NOTE | 2022-03-09 09:23 | PC.NURSE ---
Spoke with pharmacy about levophed drip
--- NOTE | 2022-03-09 09:48 | PC.NURSE ---
em catheter removed 550 cc out
--- NOTE | 2022-03-09 10:08 | PC.NURSE ---
Called report to Shawna Lares
--- NOTE | 2022-03-09 10:11 | PC.NURSE ---
Nurse and tech from second floor down to get patient to transfer up to 2nd floor
--- NOTE | 2022-03-09 10:12 | PC.NURSE ---
1015 trops sent to lab
[2022-03-09 10:40] LABS: Troponin I < 0.01 ng/ml (0.00-0.034)
--- NOTE | 2022-03-09 11:16 | HMH.CNCARD ---
History of Present Illness Consult date: 03/09/22 Requesting physician: Bud Lawson Consult reason: chest pain Chief complaint: Sepsis Additional Medical History:: 1. Essentially normal right and left heart cardiac catheterization 2014 A. Normal Lexiscan Myoview, 2019 B. [facility], 12/22/2021 ANGIOGRAPHIC RESULTS The left main artery Normal The left anterior descending artery Mild luminal irregularities The circumflex artery Dominant mild luminal irregularities The right coronary artery Nondominant normal The SHEEH[place] ventriculogram reveals Normal 65% The left ventricular end-diastolic pressure Severely elevated at 40 mmHg IMPRESSION Mild luminal irregularities Normal ejection fraction Severely elevated LVEDP consistent with diastolic dysfunction which is the etiology for patient's angina PLAN 1. Treatment of diastolic dysfunction 2. Risk factor modification 3. Treatment of mild luminal irregularities with risk factor modification 4. Avoidance of pop and consider diuretics to decrease LVEDP 5. Recommend sleep study Electronically signed by : Lamin Zhao MD 12/22/2021 11:01:25 2. Prediabetes/insulin resistance, on Metformin 3. 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 obesity 5. Hypertension A. Echo, 1. Mildly enlarged left atrium, normal left ventricular size, mild concentric left ventricular hypertrophy, visually estimated ejection fraction 55% with no regional wall motion abnormality, grade 1 diastolic dysfunction seen without tissue Doppler evidence of raise left atrial pressure. 2. Mild mitral and tricuspid regurgitation. 3. No significant pericardial effusion noted. Electronically signed by : Mirza Bowser, 06/23/2020 15:06:25 6. History of diastolic congestive heart failure 7. Admission for sepsis with (+) blood culture (drawn on 03/06/2022) showing methicillin resistant staph, 03/09/2022 History of present illness: pt with low bp and feeling of blurred vision and muffled hearing this am - had last beta loi at in - had some vomiting but no diarrhea and no cough or rash - was seen in the ed with sob a few days ago with nonspecific eval and has positive blood culture - possible staph - had 1 dose of abx - The above per Dr. Lawson Cardiology consulted for patient's complaint of chest pain along with her other complaints as noted above. Patient recently had cardiac catheterization showing essentially normal coronaries with evidence of diastolic dysfunction. Increase diuretics recommended for diastolic congestive heart failure. From a cardiac standpoint patient had been doing well until this week when she noticed some chest discomfort for which she took nitroglycerin at home and came to the ER for evaluation. Lab work was unremarkable with troponins returning normal and patient was reportedly discharged home with nitroglycerin patch. She contacted the office to arrange follow-up if needed but due to normal labs and EKG it was elected to postpone while she was having episodes of vomiting and persistent nausea. Patient now admitted for sepsis with positive blood cultures and abnormal mass on adnexa/ovary on ultrasound. Patient's inflammatory markers (CRP, procalcitonin, sed rate) all are elevated. [facility] History Medical History: Reports:: Asthma, Congestive Heart Failure, Chronic Obstructive Pulmonary Disease (COPD), Diabetes Mellitus Type 2, Hypertension, Palpitations Denies:: Cancer, Diabetes Mellitus Type 1, MRSA *Have you ever received a pneumonia vaccine?: No *Have you received a flu vaccine this season?: No Other Medical History: Reports: Anemia, Fibromyalgia, Other Other Surgeries: Yes: No Previous Surgery, Cardiac Catheterization, Cholecystectomy, Tubal Ligation Amputation: No Fractures: No - *Social History Last grade of school completed: Advanced degree Smoking Status: Never smoker Alcohol Intake: never Substance Use Type: denies use *Occup
[2022-03-09 12:53] LABS: POC Glucose,Bedside 120 (70-110)
--- NOTE | 2022-03-09 15:57 | HMH.HP ---
*Admission Date: 03/09/22 *Chief complaint: weakness *History of present illness: 46 yr old female presented to ed with c/o low bp and feeling of blurred vision and muffled hearing this am, pt states she had some vomiting but no diarrhea and no cough or rash, pt states she was in the ED a few days ago with soa. Pt states she wasnt sure what was going on so she took nitro at home and came to ed. Patient now admitted for sepsis with positive blood cultures and abnormal mass on adnexa/ovary on ultrasound. Patient's inflammatory markers (CRP, procalcitonin, sed rate) all are elevated. Will consult cardiology and [facility] [facility]ER. wait for final cx results [facility] History I have reviewed the patient's past medical history: Yes Medical History: Reports:: Asthma, Congestive Heart Failure, Chronic Obstructive Pulmonary Disease (COPD), Diabetes Mellitus Type 2, Hypertension, Palpitations Denies:: Cancer, Diabetes Mellitus Type 1, MRSA *Have you ever received a pneumonia vaccine?: No *Have you received a flu vaccine this season?: No Other Medical History: Reports: Anemia, Fibromyalgia, Other Other Surgeries: Yes: No Previous Surgery, Cardiac Catheterization, Cholecystectomy, Tubal Ligation Amputation: No Fractures: No - *Social History Last grade of school completed: Advanced degree Smoking Status: Never smoker Alcohol Intake: never Substance Use Type: denies use *Occupational Status:: unemployed Housing: house Household Members: spouse *Travel in the last 8 weeks: None Family Hx:: No significant family history Review of Systems - Review of Systems Review of systems:: pertinent systems reviewed and negative unless documented below - Constitutional Reports body ache(s), Reports fatigue, Reports malaise - Eyes Reports blurry vision - ENT Reports abnormal hearing, Denies pain with swallowing, Denies throat swelling - *Cardiovascular Reports chest pain - *Respiratory Reports shortness of breath with activity, Denies change in phlegm color - *Gastrointestinal Reports nausea, Reports vomiting, Denies abdominal pain - *Genitourinary Denies abnormal vaginal bleeding - *Musculoskeletal Denies abnormal walking - Integumentary/Breasts Denies rash - *Neurologic Reports dizziness, Reports weakness, Denies headache(s) - Psychiatric Denies abnormal sleep pattern - Endocrine Denies excessive sweating - Hematologic/Lymphatic Denies easy bruising - Allergic/Immunologic Denies seasonal runny nose Meds Home Medications Medication Instructions Recorded Confirmed Type ferrous sulfate 325 mg (65 mg 325 mg PO DAILY 02/22/20 03/09/22 History iron) tablet nitroglycerin 0.4 mg sublingual 0.4 mg SUBLINGUAL Q5MINP PRN tab 02/22/20 03/09/22 History tablet omeprazole 40 mg capsule,delayed 40 mg PO DAILY cap 02/22/20 03/09/22 History release tizanidine 4 mg capsule 4 mg PO TIDP PRN 02/22/20 03/09/22 History ibuprofen 800 mg tablet 800 mg PO TIDP PRN 05/30/20 03/09/22 History Fluticasone/Salmeterol [Advair 1 puff IH BID 12/21/21 03/09/22 History 250/50mcg Diskus] Metformin HCl [Metformin 1000mg 500 mg PO BID 12/21/21 03/09/22 History Tablets] Nebivolol HCl 5 mg PO DAILY 12/21/21 03/09/22 History Sacubitril/Valsartan [Entresto 24 1 tab PO BID 12/22/21 03/09/22 History mg-26 mg Tablet] Tramadol HCl [Tramadol 50mg 50 mg PO Q6HP PRN 12/22/21 03/09/22 History Tab] albuterol sulfate 90 mcg/actuation 1 inh INHALATION ONCE PRN g 12/28/21 03/09/22 History aerosol inhaler Dapagliflozin Propanediol [Farxiga] 10 mg PO DAILY 01/09/22 03/09/22 History furosemide 40 mg tablet 40 mg PO DIRECTED #324 tab 02/05/22 03/09/22 Rx Spironolactone 50 mg PO DAILY 03/09/22 03/09/22 History Sulfamethoxazole/Trimethoprim 1 tab PO BID 03/09/22 03/09/22 History [Sulfamethoxazole-Tmp Ds Tablet*] Allergies Allergy/AdvReac Type Severity Reaction Status Date / Time aspirin Allergy Severe S-DIFF. Verified 03/09/22 04:29
--- NOTE | 2022-03-09 16:18 | PC.NURSE ---
1027 pt arrive to floor with levo at 8mcg 1154 levo increased to 10mcg
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
[2022-03-09 18:06] LABS: POC Glucose,Bedside 127 (70-110)
--- NOTE | 2022-03-09 19:49 | PC.NURSE ---
order received from saad duran at 1710 for 400mg ibu tablet x 1 dose now. medication admin before in comp at 1720 observed by saad duran
[2022-03-09 21:53] LABS: POC Glucose,Bedside 152 (70-110)
[2022-03-10] VITALS (14 sets, daily range): BP systolic 91–135; BP diastolic 42–80; PULSE 50–77; RESP 16–20; TEMP 36.6–37.6; O2SAT 94–100; BMI 49.6
[2022-03-10 05:16] LABS: POC Glucose,Bedside 134 (70-110)
--- NOTE | 2022-03-10 05:41 | PC.NURSE ---
Pt remains on Levophed gtt @ 10 mcg/min. She has been sinus to sinus carolin this shift with episodes of HR decreasing as low as in the upper 30s momentarily. Pt has not c/o any CP this shift. She has c/o cramping to legs x1 this shift. FSBS 152, 134. Pt has ambulated with stand by assist to BR. Tolerated well. No other concerns. Will continue to monitor.
--- NOTE | 2022-03-10 06:21 | ECG_ITS ---
APPROVED REPORT Exam: Resting ECG HR:60 bpm ECG Measurements Heart Rate 60 AXES TN 144 P 32 QRSd 89 QRS 26 QT 406 T 31 QTc 408 Conclusion SINUS RHYTHM NORMAL ECG UNCONFIRMED REPORT Electronically signed by : Ahsan Chew MD 03/11/2022 09:02:45
--- NOTE | 2022-03-10 06:34 | PC.NURSE ---
Pt c/o CP this AM. EKG currently being obtained via RT. MD Hooper notified about pt complaint this AM and Bradycardia t/o shift. Pt on Levophed gtt currently @ 8 mcg/min. No additional orders received at this time. MD carpenter will address this AM.
[2022-03-10 08:20] LABS: Basophils % 0.5 % (0.1-2.0); Eosinophils # 0.6 K/mm3 (0.0-0.4); Eosinophils % 11.9 % (0.1-12.0); Hematocrit 31.2 % (37.0-47.0); Hemoglobin 10.1 g/dL (12.2-16.2); Lymphocytes % 18.4 % (10-50); Mean Corpuscular HGB Conc 32.2 g/dL (31.8-35.4); Mean Corpuscular Hemoglobin 23.6 pg (27.0-31.2); Mean Corpuscular Volume 73.4 fl (81-99); Mean Platelet Volume 8.1 fl (7.4-10.4); Monocytes # 0.2 K/mm3 (0.1-1.0); Monocytes % 4.5 % (1.7-9.3); Neutrophils # 3.5 K/mm3 (1.8-7.8); Neutrophils % 64.7 % (37.0-80.0); Platelet Count 401 K/mm3 (142-424); Red Blood Count 4.25 M/mm3 (4.20-5.40); Red Cell Distribution Width 15.9 % (11.5-17.5); White Blood Count 5.4 K/mm3 (4.8-10.8)
[2022-03-10 08:28] LABS: Anion Gap 10.7 mEq/L (5-15); Blood Urea Nitrogen 9 mg/dl (7-17); Calcium 8.7 mg/dl (8.4-10.2); Carbon Dioxide 24 mmol/L (22.0-30.0); Chloride 108 mmol/L (98-107); Creatinine Clearance Estimated 68 mL/min (50-200); Estimated Glomerular Filt Rate 77 ml/min (>60); GFR (African American) 93 ML/MIN (>60); Glucose 127 mg/dl (74-100); Magnesium 1.9 mg/dl (1.6-2.3); Potassium 3.7 mmoL/L (3.5-5.1); Sodium 139 mmol/L (136-145)
--- NOTE | 2022-03-10 10:07 | PC.NURSE ---
0800- levophed titrated to 4mcg, BP 129/71, MAP 90 0830- levophed titrated to 2mcg, BP 112/61, MAP 78 0900- levophed titrated to off, BP 145/77, MAP 99 1000- Patient maintaining BP 111/61, MAP 77
[2022-03-10 11:39] LABS: POC Glucose,Bedside 99 (70-110)
--- NOTE | 2022-03-10 13:17 | HMH.ACPN2 ---
Internal Medicine - PN: Subj *Date: 03/10/22 *Time: 13:20 Interval history: off levo gtt this morning looks brighter c/o joint pain cultures pending Exam Vital signs and Labs for Last 24 Hours: Temp Pulse Resp BP Pulse Ox 99.7 F H 69 16 96/51 L 100 03/10/22 08:00 03/10/22 12:00 03/10/22 12:00 03/10/22 12:00 03/10/22 12:00 Laboratory Results - last 24 hr 03/09/22 17:07: POC Glucose 127 H 03/09/22 20:12: POC Glucose 152 H 03/10/22 05:00: POC Glucose 134 H 03/10/22 08:00: WBC 5.4 D, RBC 4.25, Hgb 10.1 L, Hct 31.2 L, MCV 73.4 L, MCH 23.6 L, MCHC 32.2, RDW 15.9, Plt Count 401, MPV 8.1, Neut % (Auto) 64.7, Lymph % (Auto) 18.4, [place] % (Auto) 4.5, Eos % (Auto) 11.9, Baso % (Auto) 0.5, Neut # (Auto) 3.5, Lymph # (Auto) 1.0, [place] # (Auto) 0.2, Eos # (Auto) 0.6 H, Baso # (Auto) 0.0 03/10/22 08:00: Sodium 139, Potassium 3.7, Chloride 108 H, Carbon Dioxide 24, Anion Gap 10.7, BUN 9 D, Creatinine 0.80 D, Estimated Creat Clear 68, Estimated GFR 77, Est GFR ( Amer) 93 D, Glucose 127 H, Calcium 8.7, Magnesium 1.9 03/10/22 11:32: POC Glucose 99 I & O for Last 24 hours: Intake & Output 03/07/22 03/08/22 03/09/22 03/10/22 23:59 23:59 23:59 23:59 Intake Total 60 / 60 120 / 120 Output Total 1700 / 2100 1400 / 1400 Balance -1640 / -2040 -1280 / -1280 Weight 284 lb 6.341 oz 280 lb 3.2 oz Microbiology Reports for the Last 24 Hours: Microbiology 03/09/22 03:37 Urine,Catheterized Urine Culture - Preliminary NO GROWTH AFTER 24 HOURS - Constitutional no acute distress, obese, chronically ill appearing, cooperative - *Routine HEENT Exam Head: Present: normocephalic Eye: Present: EOMI, PERRL ENT: Present: mucous membranes moist - *Routine Neck Exam Present: supple. Absent: lymphadenopathy - *Routine Respiratory Exam Present: CTA bilaterally - *Routine Cardiovascular Exam Present: RRR - *Routine Abdominal Exam Present: soft, normoactive bowel sounds. Absent: tenderness - *Routine Extremities Exam Absent: cyanosis, clubbing, edema - *Routine Skin Exam Present: warm. Absent: rash - *Routine Neurological Exam Present: alert, oriented X3 Assessment and Plan (1) Septic shock Status: Acute Category: Medical Code(s): A41.9 - Sepsis, unspecified organism; R65.21 - Severe sepsis with septic shock (2) Severe sepsis with acute organ dysfunction Status: Acute Category: Medical Code(s): A41.9 - Sepsis, unspecified organism; R65.20 - Severe sepsis without septic shock (3) Diastolic dysfunction Status: Chronic Category: Medical Code(s): I51.89 - Other ill-defined heart diseases (4) Diastolic CHF with preserved left ventricular function, NYHA class 2 Status: Chronic Category: Medical Code(s): I50.30 - Unspecified diastolic (congestive) heart failure (5) Ovarian cyst Status: Acute Qualifiers: Laterality: right Qualified Code(s): N83.201 - Unspecified ovarian cyst, right side Category: Medical Code(s): N83.209 - Unspecified ovarian cyst, unspecified side (6) Enlarged uterus Status: Acute Category: Medical Code(s): N85.2 - Hypertrophy of uterus (7) Thickened endometrium Status: Acute Category: Medical Code(s): R93.89 - Abnormal findings on diagnostic imaging of other specified body structures (8) History of tubal ligation Status: Acute Category: Surgical Code(s): Z98.51 - Tubal ligation status (9) Combined abdominal and pelvic pain Status: Acute Category: Medical Code(s): R10.9 - Unspecified abdominal pain; R10.2 - Pelvic and perineal pain - Assessment and plan all Dx Assessment and Plan for all problems:: cultures pending encouraging systolic pressures toradol prn pain
[2022-03-10 16:20] LABS: POC Glucose,Bedside 92 (70-110)
--- NOTE | 2022-03-10 16:29 | PC.NURSE ---
Patient weaned from levophed today and has tolerated well, has been up to chair for most of the day, received shower and full bed change, treated for pain with toradol per emar once this shift, remains on 1LNC, ambulates in room with standby assist, no s/s of distress noted, vss.
[2022-03-10 21:14] LABS: POC Glucose,Bedside 92 (70-110)
[2022-03-11] VITALS: BP 112/62; PULSE 68; RESP 16; TEMP 36.6; O2SAT 97
[2022-03-11 04:00] VITALS: BP 121/65; PULSE 65; PULSE 68; RESP 16; TEMP 36.7; O2SAT 99
--- NOTE | 2022-03-11 04:58 | PC.NURSE ---
pt has rested well t/o shift, has remained on her home oxygen of 1 L NC, O2 sats have been 97-100%, HR 63-68, SBP 112-125, has ambulated to with standby assist, has complained of pain one time and was treated per MAR
[2022-03-11 06:34] VITALS: BMI 49.9
[2022-03-11 07:13] LABS: CA 19-9 15 U/mL (0-35); CEA 1.2 ng/mL (0.0-4.7); Cancer Antigen (CA) 125 16.4 U/mL (0.0-38.1)
[2022-03-11 08:00] VITALS: BP 112/56; PULSE 58; PULSE 63; PULSE 66; RESP 20; TEMP 36.8; O2SAT 99
[2022-03-11 12:00] VITALS: BP 115/56; PULSE 83; RESP 18; TEMP 36.5; O2SAT 99
[2022-03-11 13:10] LABS: Vancomycin,Trough 8.7 ug/mL (5.0-10.0)
--- NOTE | 2022-03-11 13:52 | HMH.ACPN2 ---
Internal Medicine - PN: Subj *Date: 03/11/22 *Time: 13:54 Interval history: uneventful night Exam Vital signs and Labs for Last 24 Hours: Temp Pulse Resp BP Pulse Ox 98.3 F 63 20 112/56 L 99 03/11/22 08:00 03/11/22 08:00 03/11/22 08:00 03/11/22 08:00 03/11/22 08:00 Laboratory Results - last 24 hr 03/10/22 08:00: Carcinoembryonic Ag 1.2, CA 19-9 Antigen 15, CA 125 Antigen 16.4 03/10/22 16:04: POC Glucose 92 03/10/22 20:25: POC Glucose 92 03/11/22 11:41: Vancomycin Trough 8.7 I & O for Last 24 hours: Intake & Output 03/08/22 03/09/22 03/10/22 03/11/22 23:59 23:59 23:59 23:59 Intake Total 60 / 60 240 / 240 600 / 600 Output Total 1700 / 2100 2100 / 2500 1550 / 1550 Balance -1640 / -2040 -1860 / -2260 -950 / -950 Weight 284 lb 6.341 oz 280 lb 3.2 oz 282 lb Microbiology Reports for the Last 24 Hours: Microbiology 03/09/22 03:37 Blood Blood Culture - Preliminary NO GROWTH AFTER 48 HOURS 03/09/22 03:37 Urine,Catheterized Urine Culture - Final NO GROWTH AFTER 48 HOURS 03/09/22 03:37 Blood Blood Culture - Preliminary NO GROWTH AFTER 48 HOURS - Constitutional no acute distress, obese, cooperative - *Routine HEENT Exam Head: Present: normocephalic Eye: Present: EOMI, PERRL ENT: Present: mucous membranes moist - *Routine Neck Exam Present: supple. Absent: lymphadenopathy - *Routine Respiratory Exam Present: CTA bilaterally - *Routine Cardiovascular Exam Present: RRR - *Routine Abdominal Exam Present: soft, normoactive bowel sounds. Absent: tenderness - *Routine Extremities Exam Absent: cyanosis, clubbing, edema - *Routine Skin Exam Present: warm. Absent: rash - *Routine Neurological Exam Present: alert, oriented X3 Assessment and Plan (1) Septic shock Status: Acute Category: Medical Code(s): A41.9 - Sepsis, unspecified organism; R65.21 - Severe sepsis with septic shock (2) Ovarian cyst Status: Acute Qualifiers: Laterality: right Qualified Code(s): N83.201 - Unspecified ovarian cyst, right side Category: Medical Code(s): N83.209 - Unspecified ovarian cyst, unspecified side (3) Severe sepsis with acute organ dysfunction Status: Acute Category: Medical Code(s): A41.9 - Sepsis, unspecified organism; R65.20 - Severe sepsis without septic shock (4) Diastolic dysfunction Status: Chronic Category: Medical Code(s): I51.89 - Other ill-defined heart diseases (5) Diastolic CHF with preserved left ventricular function, NYHA class 2 Status: Chronic Category: Medical Code(s): I50.30 - Unspecified diastolic (congestive) heart failure - Assessment and plan all Dx Assessment and Plan for all problems:: continue abx coverage monitor lab trends tumor markers noted ward supervisor consult note revd
--- NOTE | 2022-03-11 13:55 | HMH.PHACONS ---
- Pharmacy Consult Date: 03/11/22 Time: 13:55 Referring provider: DR. BRITO Reason for Consult:: VANCOMYCIN TROUGH LEVEL AND DOSE CHANGE Allergies and ADEs:: Allergies Allergy/AdvReac Type Severity Reaction Status Date / Time aspirin Allergy Severe S-DIFF. Verified 03/09/22 04:29 BREATHING bee venom protein (honey bee) Allergy Severe Anaphylaxis Verified 03/09/22 04:29 Bleach (Sodium Hypochlorite) Allergy Severe diff. Verified 03/09/22 04:29 breathing, dizzy pneumococcal vaccine Allergy Verified 03/09/22 04:29 sucralose AdvReac Severe breathing Verified 03/09/22 04:29 [From SUCRALOSE (FOOD/DRUG)] problems Home Medications:: Home Medications Medication Instructions Recorded Confirmed Type ferrous sulfate 325 mg (65 mg 325 mg PO DAILY 02/22/20 03/09/22 History iron) tablet nitroglycerin 0.4 mg sublingual 0.4 mg SUBLINGUAL Q5MINP PRN tab 02/22/20 03/09/22 History tablet omeprazole 40 mg capsule,delayed 40 mg PO DAILY cap 02/22/20 03/09/22 History release tizanidine 4 mg capsule 4 mg PO TIDP PRN 02/22/20 03/09/22 History ibuprofen 800 mg tablet 800 mg PO TIDP PRN 05/30/20 03/09/22 History Fluticasone/Salmeterol [Advair 1 puff IH BID 12/21/21 03/09/22 History 250/50mcg Diskus] Metformin HCl [Metformin 1000mg 500 mg PO BID 12/21/21 03/09/22 History Tablets] Nebivolol HCl 5 mg PO DAILY 12/21/21 03/09/22 History Sacubitril/Valsartan [Entresto 24 1 tab PO BID 12/22/21 03/09/22 History mg-26 mg Tablet] Tramadol HCl [Tramadol 50mg 50 mg PO Q6HP PRN 12/22/21 03/09/22 History Tab] albuterol sulfate 90 mcg/actuation 1 inh INHALATION ONCE PRN g 12/28/21 03/09/22 History aerosol inhaler Dapagliflozin Propanediol [Farxiga] 10 mg PO DAILY 01/09/22 03/09/22 History furosemide 40 mg tablet 40 mg PO DIRECTED #324 tab 02/05/22 03/09/22 Rx Spironolactone 50 mg PO DAILY 03/09/22 03/09/22 History Sulfamethoxazole/Trimethoprim 1 tab PO BID 03/09/22 03/09/22 History [Sulfamethoxazole-Tmp Ds Tablet*] Height: 1.6 m Weight: 127.913 kg Laboratory Results:: Laboratory Results - last 24 hr 03/10/22 08:00: Carcinoembryonic Ag 1.2, CA 19-9 Antigen 15, CA 125 Antigen 16.4 03/10/22 16:04: POC Glucose 92 03/10/22 20:25: POC Glucose 92 03/11/22 11:41: Vancomycin Trough 8.7 Medical History: Reports:: Asthma, Congestive Heart Failure, Chronic Obstructive Pulmonary Disease (COPD), Diabetes Mellitus Type 2, Hypertension, Palpitations Denies:: Cancer, Diabetes Mellitus Type 1, MRSA Assessment and Plan (1) Septic shock Status: Acute Category: Medical Code(s): A41.9 - Sepsis, unspecified organism; R65.21 - Severe sepsis with septic shock (2) Ovarian cyst Status: Acute Qualifiers: Laterality: right Qualified Code(s): N83.201 - Unspecified ovarian cyst, right side Category: Medical Code(s): N83.209 - Unspecified ovarian cyst, unspecified side (3) Severe sepsis with acute organ dysfunction Status: Acute Category: Medical Code(s): A41.9 - Sepsis, unspecified organism; R65.20 - Severe sepsis without septic shock (4) Diastolic dysfunction Status: Chronic Category: Medical Code(s): I51.89 - Other ill-defined heart diseases (5) Diastolic CHF with preserved left ventricular function, NYHA class 2 Status: Chronic Category: Medical Code(s): I50.30 - Unspecified diastolic (congestive) heart failure - Assessment and plan all Dx Assessment and Plan for all problems:: BASED ON PATIENT FACTORS AND VANCOMYCIN TROUGH LEVEL OF 8.7, RECOMMEND CHANGING VANCOMYCIN DOSE TO 2,000MG EVERY 8 HOURS WITH CALCULATED AUC OF 563. PHARMACY WILL CONTINUE TO MONITOR AND WILL ADJUST DOSE APPROPRIATE. -BASSEM THAPA PHARMD
[2022-03-11 14:02] LABS: Basophils % 0.8 % (0.1-2.0); Eosinophils # 0.4 K/mm3 (0.0-0.4); Eosinophils % 7.9 % (0.1-12.0); Hematocrit 28.5 % (37.0-47.0); Lymphocytes # 1.8 K/mm3 (0.7-4.5); Lymphocytes % 39.1 % (10-50); Mean Corpuscular HGB Conc 31.7 g/dL (31.8-35.4); Mean Corpuscular Hemoglobin 23.2 pg (27.0-31.2); Mean Corpuscular Volume 73.2 fl (81-99); Mean Platelet Volume 9.8 fl (7.4-10.4); Monocytes # 0.2 K/mm3 (0.1-1.0); Monocytes % 4.3 % (1.7-9.3); Neutrophils # 2.2 K/mm3 (1.8-7.8); Neutrophils % 47.9 % (37.0-80.0); Platelet Count 378 K/mm3 (142-424); Red Blood Count 3.89 M/mm3 (4.20-5.40); Red Cell Distribution Width 16.1 % (11.5-17.5); White Blood Count 4.7 K/mm3 (4.8-10.8)
[2022-03-11 14:08] LABS: Chloride 110 mmol/L (98-107); Potassium 3.6 mmoL/L (3.5-5.1); Sodium 137 mmol/L (136-145)
[2022-03-11 14:10] LABS: Blood Urea Nitrogen 6 mg/dl (7-17); Creatinine Clearance Estimated 91 mL/min (50-200); Estimated Glomerular Filt Rate 107 ml/min (>60); GFR (African American) 129 ML/MIN (>60)
[2022-03-11 14:11] LABS: Alanine Aminotransferase 56 U/L (12-78); Albumin Level 2.9 g/dl (3.5-5.0); Albumin/Globulin Ratio 1.1 (1.1-1.8); Alkaline Phosphatase 52 U/L (38-126); Anion Gap 7.6 mEq/L (5-15); Aspartate Amino Transferase 34 U/L (14-36); Carbon Dioxide 23 mmol/L (22.0-30.0); Globulin 2.6 g/dL (1.3-3.2); Total Protein,Serum 5.5 g/dl (6.3-8.2)
[2022-03-11 14:12] LABS: Calcium 8.8 mg/dl (8.4-10.2); Glucose 137 mg/dl (74-100)
[2022-03-11 14:29] LABS: Bilirubin,Total < 0.1 mg/dl (0.2-1.3)
[2022-03-11 16:00] VITALS: BP 140/56; PULSE 60; PULSE 62; RESP 16; TEMP 36.7; O2SAT 100
[2022-03-11 17:11] LABS: POC Glucose,Bedside 93 (70-110)
[2022-03-11 17:11] LABS: POC Glucose,Bedside 105 (70-110)
[2022-03-11 20:00] VITALS: BP 143/83; PULSE 58; PULSE 70; RESP 16; TEMP 36.9; O2SAT 99
[2022-03-11 20:52] LABS: POC Glucose,Bedside 104 (70-110)
[2022-03-12] VITALS: BP 138/91; PULSE 60; PULSE 79; RESP 18; TEMP 36.8; O2SAT 97
[2022-03-12 04:00] VITALS: BP 132/66; PULSE 60; PULSE 75; RESP 18; TEMP 36.6; O2SAT 98
[2022-03-12 05:03] VITALS: BMI 49.8
--- NOTE | 2022-03-12 05:18 | PC.NURSE ---
pt has rested well this shift, has remained on her home O2 of 1L, no complaints of SOA, O2 sats 97-99%, has complained of pain one time and was treated per MAR, HR 58-79, SBP 132-143
[2022-03-12 05:50] LABS: POC Glucose,Bedside 105 (70-110)
[2022-03-12 06:21] LABS: Basophils % 0.5 % (0.1-2.0); Eosinophils # 0.4 K/mm3 (0.0-0.4); Eosinophils % 7.6 % (0.1-12.0); Hematocrit 28.4 % (37.0-47.0); Hemoglobin 9.1 g/dL (12.2-16.2); Lymphocytes % 40.1 % (10-50); Mean Corpuscular Hemoglobin 23.6 pg (27.0-31.2); Mean Corpuscular Volume 73.8 fl (81-99); Mean Platelet Volume 8.1 fl (7.4-10.4); Monocytes # 0.2 K/mm3 (0.1-1.0); Monocytes % 4.8 % (1.7-9.3); Neutrophils # 2.4 K/mm3 (1.8-7.8); Platelet Count 367 K/mm3 (142-424); Red Blood Count 3.85 M/mm3 (4.20-5.40); Red Cell Distribution Width 16.1 % (11.5-17.5); White Blood Count 5.1 K/mm3 (4.8-10.8)
[2022-03-12 06:32] LABS: Alanine Aminotransferase 43 U/L (12-78); Albumin Level 2.9 g/dl (3.5-5.0); Albumin/Globulin Ratio 1.2 (1.1-1.8); Alkaline Phosphatase 49 U/L (38-126); Anion Gap 7.8 mEq/L (5-15); Aspartate Amino Transferase 24 U/L (14-36); Blood Urea Nitrogen 7 mg/dl (7-17); Calcium 8.5 mg/dl (8.4-10.2); Carbon Dioxide 24 mmol/L (22.0-30.0); Chloride 111 mmol/L (98-107); Creatinine Clearance Estimated 91 mL/min (50-200); Estimated Glomerular Filt Rate 107 ml/min (>60); GFR (African American) 129 ML/MIN (>60); Globulin 2.5 g/dL (1.3-3.2); Glucose 102 mg/dl (74-100); Potassium 3.8 mmoL/L (3.5-5.1); Sodium 139 mmol/L (136-145); Total Protein,Serum 5.4 g/dl (6.3-8.2)
[2022-03-12 06:51] LABS: Bilirubin,Total < 0.1 mg/dl (0.2-1.3)
[2022-03-12 08:00] VITALS: BP 153/94; PULSE 65; PULSE 85; RESP 17; TEMP 36.8; O2SAT 100; O2SAT 99
[2022-03-12 09:20] LABS: Procalcitonin 1.27 ng/mL (0.0-2.0)
--- NOTE | 2022-03-12 10:19 | P.PN_ITS ---
Internal Medicine - PN: Subj *Date: 03/12/22 *Time: 10:19 Exam Vital signs and Labs for Last 24 Hours: Temp Pulse Resp BP Pulse Ox 98.3 F 85 17 153/94 H 99 03/12/22 08:00 03/12/22 08:00 03/12/22 08:00 03/12/22 08:00 03/12/22 08:00 Laboratory Results - last 24 hr 03/11/22 11:29: POC Glucose 105 03/11/22 11:41: Vancomycin Trough 8.7 03/11/22 13:55: WBC 4.7 L, RBC 3.89 L, Hgb 9.0 L, Hct 28.5 L, MCV 73.2 L, MCH 23.2 L, MCHC 31.7 L, RDW 16.1, Plt Count 378, MPV 9.8, Neut % (Auto) 47.9, Lymph % (Auto) 39.1, Norman % (Auto) 4.3, Eos % (Auto) 7.9, Baso % (Auto) 0.8, Neut # (Auto) 2.2, Lymph # (Auto) 1.8, Norman # (Auto) 0.2, Eos # (Auto) 0.4, Baso # (Auto) 0.0 03/11/22 13:55: Sodium 137, Potassium 3.6, Chloride 110 H, Carbon Dioxide 23, Anion Gap 7.6, BUN 6 L D, Creatinine 0.60 D, Estimated Creat Clear 91, Estimated GFR 107, Est GFR ( Amer) 129 D, Glucose 137 H, Calcium 8.8, Total Bilirubin < 0.1 L, AST 34 D, ALT 56 D, Alkaline Phosphatase 52, Total Protein 5.5 L, Albumin 2.9 L, Globulin 2.6, Albumin/Globulin Ratio 1.1 03/11/22 17:03: POC Glucose 93 03/11/22 20:43: POC Glucose 104 03/12/22 05:43: POC Glucose 105 03/12/22 05:44: WBC 5.1, RBC 3.85 L, Hgb 9.1 L, Hct 28.4 L, MCV 73.8 L, MCH 23.6 L, MCHC 32.0, RDW 16.1, Plt Count 367, MPV 8.1, Neut % (Auto) 47.0, Lymph % (Auto) 40.1, Norman % (Auto) 4.8, Eos % (Auto) 7.6, Baso % (Auto) 0.5, Neut # (Auto) 2.4, Lymph # (Auto) 2.0, Norman # (Auto) 0.2, Eos # (Auto) 0.4, Baso # (Auto) 0.0 03/12/22 05:44: Sodium 139, Potassium 3.8, Chloride 111 H, Carbon Dioxide 24, Anion Gap 7.8, BUN 7, Creatinine 0.60, Estimated Creat Clear 91, Estimated GFR 107, Est GFR ( Amer) 129, Glucose 102 H D, Calcium 8.5, Total Bilirubin < 0.1 L, AST 24 D, ALT 43, Alkaline Phosphatase 49, Total Protein 5.4 L, Albumin 2.9 L, Globulin 2.5, Albumin/Globulin Ratio 1.2 03/12/22 05:44: Procalcitonin 1.27 I & O for Last 24 hours: Intake & Output 03/09/22 03/10/22 03/11/22 03/12/22 23:59 23:59 23:59 23:59 Intake Total 60 / 60 240 / 240 1320 / 1320 1334 / 1334 Output Total 1700 / 2100 2100 / 2500 1550 / 2100 1550 / 1550 Balance -1640 / -2040 -1860 / -2260 -230 / -780 -216 / -216 Weight 129 kg 127.097 kg 127.913 kg 127.732 kg Assessment and Plan (1) Septic shock Status: Acute Category: Medical Code(s): A41.9 - Sepsis, unspecified organism; R65.21 - Severe sepsis with septic shock (2) Ovarian cyst Status: Acute Qualifiers: Laterality: right Qualified Code(s): N83.201 - Unspecified ovarian cyst, r ight side Category: Medical Code(s): N83.209 - Unspecified ovarian cyst, unspecified side (3) Severe sepsis with acute organ dysfunction Status: Acute Category: Medical Code(s): A41.9 - Sepsis, unspecified organism; R65.20 - Severe sepsis without septic shock (4) Diastolic dysfunction Status: Chronic Category: Medical Code(s): I51.89 - Other ill-defined heart diseases (5) Diastolic CHF with preserved left ventricular function, NYHA class 2 Status: Chronic Category: Medical Code(s): I50.30 - Unspecified diastolic (congestive) heart failure The patient's infection will respond to the chosen ABx?: Yes Is the patient receiving the right drug, dose, and route?: Yes Could a more targeted ABx be ordered?: No (WBC DOWN FROM 18.0 TO 5.1, AFEBRILE, CONT. CURRENT ABX.)
[2022-03-12 12:00] VITALS: BP 144/79; PULSE 67; RESP 16; TEMP 36.4; O2SAT 100
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
--- NOTE | 2022-03-13 15:28 | CARE MANAGER ---
Patient returned call from hospital follow up. She states she just left cardiology and PCP appt. She reports that they think her IV site may be infected but they are going to monitor it and put some topical anti-biotic ointment on it. Denies any other questions or concerns.
== END 2022-03-12 13:45 | disposition home or self-care (01) | DRG 871 ==
LOC: ER 04:24 → 2ND 08:23
PROVIDERS: Obstetrics & Gynecology; Admitting Provider Emergency Medicine; Emergency Provider Emergency Medicine; PCP Internal Medicine; Visit Provider Family Medicine
DX: A41.9 Sepsis, unspecified organism (principal); R65.21 Severe sepsis with septic shock; I50.32 Chronic diastolic (congestive) heart failure; N39.0 Urinary tract infection, site not specified; Z68.42 Body mass index [BMI] 45.0-49.9, adult; J44.9 Chronic obstructive pulmonary disease, unspecified; E11.9 Type 2 diabetes mellitus without complications; I11.0 Hypertensive heart disease with heart failure; Z20.822 Contact with and (suspected) exposure to COVID-19; E66.9 Obesity, unspecified; N83.201 Unspecified ovarian cyst, right side; Z79.84 Long term (current) use of oral hypoglycemic drugs
CPT/HCPCS: 36415; 51702; 70450; 71045; 74177; 76856; 80048; 80053; 80076; 80202; 80305; 81001; 82150; 82378; 82962; 83036; 83605; 83690; 83735; 83880; 84145; 84484; 85007; 85025; 85651; 86140; 86316; 87040; 87086; 93005; 93306; 99285; C9803; J0692; J2405; J3370; Q9967; U0003; U0005

== ENCOUNTER 2022-04-09 12:45 | Outpatient (CLI) | payer OTHER, SELFPAY ==
[2022-04-09 13:00] VITALS: BP 129/76; PULSE 77; RESP 16; TEMP 36.6; O2SAT 97
[2022-04-09 13:51] VITALS: BP 117/59; PULSE 55; RESP 16; TEMP 36.6; O2SAT 100
== END 2022-04-09 13:54 | disposition home or self-care (01) ==
LOC: INF 12:45
PROVIDERS: PCP Internal Medicine; Visit Provider Obstetrics & Gynecology
DX: D64.9 Anemia, unspecified (principal)
CPT/HCPCS: 96365; J1439

== ENCOUNTER 2022-04-16 12:42 | Outpatient (CLI) | payer OTHER, SELFPAY ==
[2022-04-16 13:37] VITALS: BP 101/58; PULSE 56; RESP 18; O2SAT 98
[2022-04-16 14:17] VITALS: BP 112/56; PULSE 56; RESP 18
== END 2022-04-16 14:17 | disposition home or self-care (01) ==
LOC: INF 12:43
PROVIDERS: PCP Internal Medicine; Visit Provider Obstetrics & Gynecology
DX: D64.9 Anemia, unspecified (principal)
CPT/HCPCS: 96365; J1439

== ENCOUNTER → 2022-04-24 15:33 | Outpatient (CLI) | payer OTHER, SELFPAY ==
[2022-04-24 15:41] LABS: Microscopic, Urine URINE MICROSCOPIC (MICROSCOPIC)
[2022-04-24 15:58] LABS: Basophils # 0.2 K/mm3 (0-0.2); Basophils % 1.8 % (0.1-2.0); Eosinophils # 0.3 K/mm3 (0.0-0.4); Eosinophils % 2.8 % (0.1-12.0); Hematocrit 45.1 % (37.0-47.0); Hemoglobin 13.8 g/dL (12.2-16.2); Lymphocytes # 2.2 K/mm3 (0.7-4.5); Mean Corpuscular HGB Conc 30.6 g/dL (31.8-35.4); Mean Corpuscular Hemoglobin 24.4 pg (27.0-31.2); Mean Corpuscular Volume 79.8 fl (81-99); Mean Platelet Volume 8.6 fl (7.4-10.4); Monocytes # 0.4 K/mm3 (0.1-1.0); Monocytes % 3.8 % (1.7-9.3); Neutrophils # 7.1 K/mm3 (1.8-7.8); Neutrophils % 69.7 % (37.0-80.0); Platelet Count 484 K/mm3 (142-424); Red Blood Count 5.65 M/mm3 (4.20-5.40); White Blood Count 10.2 K/mm3 (4.8-10.8)
[2022-04-24 16:07] LABS: Activated Partial Thrombo Time 28.4 seconds (22.8-30.6); INR 0.99 (0.9-1.1); Prothrombin Time 11.2 seconds (10.1-12.5)
[2022-04-24 16:46] LABS: Alanine Aminotransferase 37 U/L (12-78); Albumin Level 4.3 g/dl (3.5-5.0); Albumin/Globulin Ratio 1.3 (1.1-1.8); Alkaline Phosphatase 83 U/L (38-126); Anion Gap 12.8 mEq/L (5-15); Aspartate Amino Transferase 33 U/L (14-36); Bilirubin,Total 0.3 mg/dl (0.2-1.3); Blood Urea Nitrogen 14 mg/dl (7-17); Calcium 9.6 mg/dl (8.4-10.2); Carbon Dioxide 30 mmol/L (22.0-30.0); Chloride 96 mmol/L (98-107); Estimated Glomerular Filt Rate 67 ml/min (>60); GFR (African American) 81 ML/MIN (>60); Globulin 3.2 g/dL (1.3-3.2); Glucose 115 mg/dl (74-100); Potassium 3.8 mmoL/L (3.5-5.1); Sodium 135 mmol/L (136-145); Total Protein,Serum 7.5 g/dl (6.3-8.2)
[2022-04-24 20:48] LABS: Appearance,Urine CLEAR (Clear); Bilirubin,Urine Negative (Negative); Blood, Urine TRACE-L (Negative); Color,Urine YELLOW (Yellow); Glucose,Urine (UA) 3+ (Negative); Ketones,Urine Negative (Negative); Leukocyte Esterase,Urine Negative (Negative); Nitrate,Urine Negative (Negative); Protein,Urine Negative (Negative); Urobilinogen,Urine 0.2 EU/dl (0.2)
[2022-04-24 21:30] LABS: Bacteria,Urine 1+ /lpf; Calcium Oxalate Crystals,Urine 2+ /lpf; Mucus,Urine 1+ /lpf
== END ==
PROVIDERS: PCP Internal Medicine; Visit Provider Internal Medicine
DX: Z01.818 Encounter for other preprocedural examination (principal); I50.32 Chronic diastolic (congestive) heart failure; I11.0 Hypertensive heart disease with heart failure; N83.8 Other noninflammatory disorders of ovary, fallopian tube and broad ligament; D50.9 Iron deficiency anemia, unspecified; M79.7 Fibromyalgia
CPT/HCPCS: 36415; 80053; 81001; 85025; 85610; 85730

== ENCOUNTER → 2022-04-30 11:06 | Outpatient (CLI) | payer OTHER, SELFPAY ==
[2022-04-30 11:42] LABS: Basophils # 0.2 K/mm3 (0-0.2); Basophils % 1.9 % (0.1-2.0); Eosinophils # 0.2 K/mm3 (0.0-0.4); Eosinophils % 2.7 % (0.1-12.0); Hematocrit 43.5 % (37.0-47.0); Hemoglobin 13.2 g/dL (12.2-16.2); Lymphocytes # 2.4 K/mm3 (0.7-4.5); Lymphocytes % 28.3 % (10-50); Mean Corpuscular HGB Conc 30.3 g/dL (31.8-35.4); Mean Corpuscular Hemoglobin 24.6 pg (27.0-31.2); Mean Platelet Volume 8.2 fl (7.4-10.4); Monocytes # 0.4 K/mm3 (0.1-1.0); Monocytes % 5.1 % (1.7-9.3); Neutrophils # 5.2 K/mm3 (1.8-7.8); Platelet Count 427 K/mm3 (142-424); Red Blood Count 5.37 M/mm3 (4.20-5.40); Red Cell Distribution Width 23.7 % (11.5-17.5); White Blood Count 8.4 K/mm3 (4.8-10.8)
[2022-04-30 12:08] LABS: Alanine Aminotransferase 50 U/L (12-78); Albumin Level 4.2 g/dl (3.5-5.0); Albumin/Globulin Ratio 1.4 (1.1-1.8); Alkaline Phosphatase 82 U/L (38-126); Anion Gap 13.5 mEq/L (5-15); Aspartate Amino Transferase 36 U/L (14-36); Bilirubin,Total 0.2 mg/dl (0.2-1.3); Blood Urea Nitrogen 6 mg/dl (7-17); Calcium 9.3 mg/dl (8.4-10.2); Carbon Dioxide 32 mmol/L (22.0-30.0); Chloride 95 mmol/L (98-107); Estimated Glomerular Filt Rate 77 ml/min (>60); GFR (African American) 93 ML/MIN (>60); Glucose 127 mg/dl (74-100); Potassium 3.5 mmoL/L (3.5-5.1); Sodium 137 mmol/L (136-145); Total Protein,Serum 7.2 g/dl (6.3-8.2)
[2022-04-30 12:19] LABS: Benzodiazepines Screen,Urine Negative ng/ml (<200)
[2022-04-30 12:20] LABS: Amphetamine/Metha Screen,Urine Negative ng/ml (<1000)
[2022-04-30 12:21] LABS: Barbiturates Screen,Urine Negative ng/ml (<200); Cannabinoid Screen,Urine Negative ng/ml (<50)
[2022-04-30 12:22] LABS: Cocaine Screen,Urine Negative ng/ml (<300); Methadone Screen,Urine Negative ng/ml (<300)
[2022-04-30 12:23] LABS: Opiate Screen,Urine Negative ng/ml (<300)
[2022-04-30 12:24] LABS: Phencyclidine Screen,Urine Negative ng/ml (<25)
[2022-04-30 12:26] LABS: HCG,Quantitative < 2 mIU/ml (0-5.42)
== END ==
PROVIDERS: PCP Internal Medicine; Visit Provider Obstetrics & Gynecology
DX: N85.2 Hypertrophy of uterus (principal)
CPT/HCPCS: 36415; 80053; 80305; 84702; 85025; 86850; C9803; U0003; U0005

== ENCOUNTER 2022-05-01 13:30 | Inpatient (IN) | payer OTHER, SELFPAY ==
[2022-04-27 12:43] VITALS: BMI 46.0
[2022-05-01] VITALS (27 sets, daily range): BP systolic 88–135; BP diastolic 56–84; PULSE 69–100; RESP 14–19; TEMP 36.5–43; O2SAT 93–98
[2022-05-01 06:38] LABS: POC Glucose,Bedside 123 (70-110)
[2022-05-01 07:00] LABS: Coronavirus 19, PCR Not Detected (NotDetected); Influenza A, PCR Not Detected (NotDetected); Influenza B, PCR Not Detected (NotDetected)
--- NOTE | 2022-05-01 08:00 | HMH.HP ---
*Admission Date: 05/01/22 *Chief complaint: adnexal mass *History of present illness: 46 year old Admitted for presumed septic shock 03/09/22, although final assessment did not confirm sepsis During evaluation large pelvic mass was noted on CT and IMPROVEMENT DIRECTOR consult obtained Pelvic ultrasound ordered for further assessment: Uterus 13.6x6.9x5.4cm ES 2.1cm R ovary 12.2x11.6x9.0cm 11.2x10.9x8.9cm cystic mass L ovary 5.7x4.1x3.9cm Tumor markers all normal: CA-125: 16.4 CA 19-9: 15 CEA: 1.2 Office follow up with pap smear (negative) 03/30/22 Cervical polyp noted on exam with uncomplicated removal; pathology benign She was offered more conservative surgical management with laparoscopic RSO and D&C for evaluation of thickened endometrium She has chronic HMB, however, and has previously been transfused twice for severe anemia Hgb 9.8 at time of hospitalization; treated with IV Injectafer prior to surgery date and current Hgb 13.2 She desires permanent surgical management with hysterectomy Endometrial sampling prior to hysterectomy recommended but will be deferred to minimize surgical procedures and general anesthesia risks in context of other complex medical issues; this may require additional surgical procedures if uterine pathology present but previous exam Identified polyp prolapsing through cervix and pathology was benign, which may explain thickened endometrium seen on pelvic ultrasound She has complicated PMH with CHF and 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 Denies: Blood Transfusion Reaction Other Surgeries: Yes: Cardiac Catheterization, Cholecystectomy, Tubal Ligation. No: Pacemaker Amputation: No Fractures: No - *Social History Last grade of school completed: High school graduate Smoking Status: Never smoker Alcohol Intake: current Alcohol Intake Frequency:: holidays/special occasions only Substance Use Type: denies use *Occupational Status:: unemployed, disabled Housing: house Household Members: spouse *Travel in the last 8 weeks: None Family Hx:: Diabetes, Heart Attack, Hypertension, Alcoholism : 4 Para: 2 A: 2 Review of Systems - Review of Systems Review of systems:: pertinent systems reviewed and negative unless documented below - *Cardiovascular Denies chest pain - *Respiratory Reports shortness of breath with activity (chronic) - *Gastrointestinal Reports abdominal pain - *Genitourinary Reports heavy periods, Reports pelvic pain Meds Home Medications Medication Instructions Recorded Confirmed Type nitroglycerin 0.4 mg sublingual 0.4 mg SL Q5MINP PRN tab 02/22/20 05/01/22 History tablet tizanidine 4 mg capsule 4 mg PO DAILYP PRN 02/22/20 05/01/22 History Metformin HCl [Metformin 1000mg 500 mg PO BID 12/21/21 05/01/22 History Tablets] Nebivolol HCl 5 mg PO DAILY 12/21/21 05/01/22 History Sacubitril/Valsartan [Entresto 24 1 tab PO BID 12/22/21 05/01/22 History mg-26 mg Tablet] Tramadol HCl [Tramadol 50mg 100 mg PO Q6HP PRN 12/22/21 05/01/22 History Tab] albuterol sulfate 90 mcg/actuation 2 puff IH ONCE PRN g 12/28/21 05/01/22 History aerosol inhaler dapagliflozin 10 mg tablet 10 mg PO DAILY 03/13/22 05/01/22 History ferrous sulfate 325 mg (65 mg 325 mg PO DAILY 03/30/22 05/01/22 History iron) tablet furosemide 40 mg tablet 40 mg PO BID tab 03/30/22 05/01/22 History promethazine 25 mg t
--- NOTE | 2022-05-01 10:00 | HMH.ANESCL ---
[facility] Anesthesia Checklist - Patient Identification Patient Identification: Arm Band, Verbal (Name & ) - Structural Data Admitted From: Home Planned Operative Procedure/s: ALMA Consent for Planned Operative Procedure(s) Verified: Yes Verified Documents: Surgical Consent - NPO Status Verified Time NPO: 00:00 - Chart Verification Results Verified: CBC, BMP - Additional verifications Anesthesia Reactions: No Hx Blood Transfusions: Yes Blood Transfusion Reaction: No - Airway Assessment C-Spine Mobility Assessed: Yes TMJ Mobility Assessed: Yes Dentition: Good Dentition - Neurological Assessment Level of Consciousness: Awake, Appropriate - Anesthesia Plan Anesthesia Risk discussed: Yes ASA Class: III Anesthesia Type: General [facility] History I have reviewed the patient's past medical history: Yes Medical History: Reports:: Asthma, Congestive Heart Failure, Chronic Obstructive Pulmonary Disease (COPD), Diabetes Mellitus Type 2, Hypertension, MRSA (03/18 wrist), Palpitations Denies:: Cancer, Diabetes Mellitus Type 1, Internal Pacemaker, Seizures *Have you ever received a pneumonia vaccine?: Yes (anaphlaxis) *Have you received a flu vaccine this season?: Yes Other Medical History: Reports: Anemia, Fibromyalgia, Other. Denies: Blood Transfusion Reaction Anesthesia experience/problems:: none Other Surgeries: Yes: No Previous Surgery, Cardiac Catheterization, Cholecystectomy, Tubal Ligation. No: Pacemaker Amputation: No Fractures: No - *Social History Last grade of school completed: High school graduate Smoking Status: Never smoker Alcohol Intake: current Alcohol Intake Frequency:: holidays/special occasions only Substance Use Type: denies use *Occupational Status:: unemployed, disabled Housing: house Household Members: spouse *Travel in the last 8 weeks: None Family Hx:: Diabetes, Heart Attack, Hypertension, Alcoholism Para: 2 A: 2
--- NOTE | 2022-05-01 11:22 | SUR.OPER ---
1122-family updated at this time
--- NOTE | 2022-05-01 12:29 | HMH.ANESI ---
[facility] Anesthesia Record Part I Intake, IV Amount: 1,600 Estimated blood loss (mL): 300 Urine output (mL): 200 Blood Pressure: 88/60 SaO2: 93 Pulse Rate: 80 Respiratory Rate: 14 Temperature: 98.0 F Patient is:: Drowsy Stable to PACU at:: 12:24
--- NOTE | 2022-05-01 12:30 | XR_ITS ---
FINAL REPORT CLINICAL HISTORY: Low Saturation intraop, post hysto COMPARISON: March 09, 2022 FINDINGS: A presumed loop recorder is present. The heart size is normal. The mediastinum is normal the lung volumes are low. There are bilateral new pulmonary opacities. There are no pleural effusions. There is no pneumothorax. There is no osseous abnormality. IMPRESSION: New bilateral pulmonary opacities. Atelectasis versus pneumonia. Reviewed, Interpreted and Dictated by Clinton Argueta III, MD Transcribed by Chava Vanegas Authenticated and [facility]
--- NOTE | 2022-05-01 12:35 | HMH.OPNOTE ---
Date of procedure: 05/01/22 Pre-op Diagnosis:: 1. Right adnexal mass 2. Pelvic pain 3. Heavy menstrual bleeding 4. Enlarged uterus 5. Thickened endometrium 6. BMI 46 Post-op Diagnosis:: 1. Right adnexal mass 2. Pelvic pain 3. Heavy menstrual bleeding 4. Enlarged uterus 5. Thickened endometrium 6. BMI 46 Procedure performed:: Total abdominal Hysterectomy Left salpingectomy Right salpingo-oophorectomy Incision and drainage of right adnexal cyst Surgeon:: Parvin Jacobsen MD Job Training Specialist(s):: Karen Naqvi DO AUDIO PRODUCTION INSTRUCTOR:: Other Anesthesia: GETA Estimated blood loss (mL): 300 Operative findings:: 15cm right adnexal cyst, benign appearing with clear fluid aspirated Grossly enlarged uterus 14cm Normal appearing right ovary Normal appearing left ovary Operative note:: The patient was taken to the operating room and general anesthesia was administered without difficulty. She was prepped and draped in the supine position. A midline skin incision was made inferior to the umbilicus and extended downward to approximately 2 cm above the pubic symphysis. The incision was carried down to the underlying layer of fascia. The fascia was incised in the midline and extended sharply in superior and inferior direction. The rectus muscles were sharply dissected off the fascia and in the midline. The peritoneum was turned and sharply, with good visualization of the underlying structures. The peritoneal incision was extended bluntly. A survey of the patient's pelvis and abdomen revealed the findings noted above. At this time, the patient was placed in Trendelenburg and a [place] retractor was placed in the abdomen; the bowel was packed with moist laparotomy sponges. Because of the large size of the adnexal mass, the initial assessment was to obtain pelvic washing before any manipulation occurred, in case of inadvertent rupture. After the washings were obtained, the mass was brought to the level of the incision for closer inspection. Based on the appearance and obvious clear fluid within this large cyst, it was of low concern for malignancy and the decision was made to drain the cyst in order to better view the rest of the anatomy. A small stab wound was made with the scalpel and the fluid was drained; approximately 500cc was removed from the cyst. A double tooth tenaculum was then placed on the uterine fundus and the uterus was elevated out of the pelvis. No fibroids or other visible uterine lesions were noted. The round ligaments were identified and transected and suture-ligated. The anterior lip of the broad ligament was dissected medially on both sides and the bladder flap was created digitally. The posterior leaf of the broad ligament was dissected until the ureters were able to be identified on either side and noted to be free of the forthcoming adnexal pedicles. Infundibulopelvic ligaments were doubly clamped transected and suture ligated on either side, with excellent hemostasis noted. The left ovary was preserved, at patient request, and the right ovary and fallopian tube was excised using the Enseal. The left fallopian tube was also excised using the Enseal, and the specimens were set aside for pathology. The uterine arteries were skeletonized on either side, and were clamped, transected and suture ligated with excellent hemostasis. The bladder flap was further bluntly dissected off the lower uterine segment with excellent hemostasis and without injury to the bladder. The cardinal and uterosacral ligaments were clamped transected and suture ligated on both sides until the vaginal mucosa was entered. The vaginal incision was extended circumferentially with the Jorganson scissors; the uterus and cervix were removed abdominally and sent for pathology, along with the fallopian tubes. The vaginal cuff angles were closed 0 Vicryl [id number] sutures and were transfixed to the ipsilateral cardinal and uterosacral ligaments. The r
[2022-05-01 12:41] LABS: POC Glucose,Bedside 186 (70-110)
--- NOTE | 2022-05-01 13:04 | HMH.PHAINT ---
MEDICATION RECONCILIATION COMPLETED ON PATIENT USING EXTERNAL FILL HISTORY FROM PHARMACY AND DISCHARGE SUMMARY FROM PREVIOUS ADMISSION. -MAHENDRA CORLEYD
--- NOTE | 2022-05-01 13:06 | HMH.PHAVTE ---
[facility] Pharmacy VTE Monitoring - Patient Demographics Admission date: 05/01/22 Report Date: 05/01/22 Time: 13:06 Allergies/Adverse Reactions: Patient Allergies aspirin Allergy (Severe, Verified 05/01/22 06:20) S-DIFF. BREATHING bee venom protein (honey bee) Allergy (Severe, Verified 05/01/22 06:20) Anaphylaxis Bleach (Sodium Hypochlorite) Allergy (Severe, Verified 05/01/22 06:20) diff. breathing, dizzy pneumococcal vaccine Allergy (Verified 05/01/22 06:20) sucralose [From SUCRALOSE (FOOD/DRUG)] Adverse Reaction (Severe, Verified 05/01/22 06:20) breathing problems Height: 1.6 m Weight: 117.934 kg Patient Problems: Current Active Problems Enlarged uterus (Acute) Thickened endometrium (Acute) History of tubal ligation (Acute) Combined abdominal and pelvic pain (Acute) BMI 45.0-49.9, adult (Acute) Heavy menstrual bleeding (Acute) Adnexal mass (Acute) - Prophylaxis VTE Prophylaxis Ordered?: Yes Types of VTE Prophylaxis: IPCS Thigh High Location of Applied Device: Bilateral Lower Extremeties
--- NOTE | 2022-05-01 14:38 | P.PN_ITS ---
[facility] Anesthesia Record Part II Discharge Time: 13:13 Destination: Obstetric PACU nurse assessment reviewed?: Yes Patient Condition:: Good Anesthesia Complications:: None Swallowing reflex intact?: Yes Cyanosis?: No Blood Pressure: 116/68 Pulse Rate: 78 Temperature: 98 F Mental Status: Alert & Oriented Pain level:: 0 Nausea and/or vomitting:: None Intake, IV Amount: 0
[2022-05-01 15:23] LABS: Microscopic,Cath URINE MICROSCOPIC (MICROSCOPIC)
--- NOTE | 2022-05-01 16:12 | PC.NURSE ---
here to see pt for consultation.
[2022-05-01 16:15] LABS: Appearance,Urine/Cath CLEAR (Clear); Bilirubin,Cath Negative (Negative); Blood, Urine/Cath TRACE-L (Negative); Color,Urine/Cath YELLOW (Yellow); Glucose,Urine/Cath (UA) 1+ (Negative); Ketones,Urine/Cath Negative (Negative); Leukocyte Esterase,Cath Negative (Negative); Nitrate,Cath Negative (Negative); Protein,Urine/Cath Negative (Negative); Urobilinogen,Cath 0.2 EU/dl (0.2)
--- NOTE | 2022-05-01 18:33 | PC.NURSE ---
here to see pt.
--- NOTE | 2022-05-01 19:21 | PC.NURSE ---
Report received from FREDY Vazquez
[2022-05-01 20:02] LABS: Bacteria,Urine/Cath TRACE /lpf; Squamous Epithelial Ur./Cath Occasional #/hpf (0-5)
[2022-05-02] VITALS (12 sets, daily range): BP systolic 101–127; BP diastolic 50–68; PULSE 60–82; RESP 17–18; TEMP 36.4–36.9; O2SAT 89–98
--- NOTE | 2022-05-02 04:01 | PC.NURSE ---
NO ACUTE CHANGES FROM PREVIOUS ASSESSMENT. LUNGS REMAIN CTA BILATERALLY. PT'S URINE OUTPUT HAS IMPROVED OVERNIGHT WITH URINE BECOMING MORE LIGHT YELLOW AND CLEAR. PT IS TAKING IN PO FLUIDS WITHOUT NAUSEA OR VOMITING. ELXA DRAIN REMAINS INTACT AND DRAINING APPROPRIATELY. F/C DRAINING AND ANCHORED APPROPRIATELY. TELFA DRESSING REMAINS INTACT OVER MIDLINE INCISION WITH SMALL AMOUNT OF BLOODY DRAINAGE THAT IS UNCHANGED. VS REMAIN STABLE WITH PT ON 2L NC. PT HAS RESTED ON HER LEFT SIDE MOST OF THE NIGHT. PT DECLINES ASSISTANCE WITH REPOSITIONING. CALL LIGHT WITHIN REACH, BED LOCKED AND AT LOWEST LEVEL.WILL CONTINUE TO MONITOR.
[2022-05-02 06:45] LABS: POC Glucose,Bedside 126 (70-110)
[2022-05-02 07:06] LABS: Basophils # 0.1 K/mm3 (0-0.2); Basophils % 0.4 % (0.1-2.0); Eosinophils # 0.1 K/mm3 (0.0-0.4); Eosinophils % 0.4 % (0.1-12.0); Hematocrit 33.9 % (37.0-47.0); Hemoglobin 10.3 g/dL (12.2-16.2); Lymphocytes # 2.1 K/mm3 (0.7-4.5); Lymphocytes % 16.8 % (10-50); Mean Corpuscular HGB Conc 30.5 g/dL (31.8-35.4); Mean Corpuscular Hemoglobin 24.5 pg (27.0-31.2); Mean Corpuscular Volume 80.4 fl (81-99); Monocytes # 0.8 K/mm3 (0.1-1.0); Monocytes % 6.3 % (1.7-9.3); Neutrophils # 9.3 K/mm3 (1.8-7.8); Neutrophils % 76.1 % (37.0-80.0); Platelet Count 333 K/mm3 (142-424); Red Blood Count 4.21 M/mm3 (4.20-5.40); Red Cell Distribution Width 24.2 % (11.5-17.5); White Blood Count 12.2 K/mm3 (4.8-10.8)
[2022-05-02 07:10] LABS: Anion Gap 8.8 mEq/L (5-15); Blood Urea Nitrogen 15 mg/dl (7-17); Calcium 8.4 mg/dl (8.4-10.2); Carbon Dioxide 34 mmol/L (22.0-30.0); Chloride 92 mmol/L (98-107); Creatinine Clearance Estimated 51 mL/min (50-200); Estimated Glomerular Filt Rate 53 ml/min (>60); GFR (African American) 64 ML/MIN (>60); Glucose 126 mg/dl (74-100); Potassium 3.8 mmoL/L (3.5-5.1); Sodium 131 mmol/L (136-145)
--- NOTE | 2022-05-02 10:25 | HMH.PULMCON ---
*Admission Date: 05/01/22 *Reason for consult:: Acute hypoxic respiratory failure *History of present illness: Ms. 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 has been intermittently receiving steroids and antibiotics for recurrent bronchitis presented for an elective procedure noted to have mild hypoxic episode during the procedure and pulmonary was further evaluation [facility] History Medical History: Reports:: Asthma, Congestive Heart Failure, Chronic Obstructive Pulmonary Disease (COPD), Diabetes Mellitus Type 2, Hypertension, MRSA (03/18 wrist), Palpitations Denies:: Cancer, Diabetes Mellitus Type 1, Internal Pacemaker, Seizures *Have you ever received a pneumonia vaccine?: No *Have you received a flu vaccine this season?: No Other Medical History: Reports: Anemia, Fibromyalgia, Other. Denies: Blood Transfusion Reaction Anesthesia experience/problems:: none Other Surgeries: Yes: No Previous Surgery, Cardiac Catheterization, Cholecystectomy, Tubal Ligation. No: Pacemaker Amputation: No Fractures: No - *Social History Last grade of school completed: High school graduate Smoking Status: Never smoker Alcohol Intake: current Alcohol Intake Frequency:: holidays/special occasions only Substance Use Type: denies use *Occupational Status:: unemployed, disabled Housing: house Household Members: spouse *Travel in the last 8 weeks: None Family Hx:: Diabetes, Heart Attack, Hypertension, Alcoholism Para: 2 A: 2 ROS - Cons Reports fatigue, Reports lack of energy - Eyes Denies change in vision - ENT Denies difficulty swallowing - Card Reports shortness of breath, Reports shortness of breath with activity - Resp Respiratory: Reports chest congestion, Reports cough, Denies excessive phlegm production, Denies coughing up blood, Denies pain with breathing, Reports snoring, Denies wheezing - GI Gastrointestingal: Reports: abdominal pain - Psych Denies thoughts of hurting/killing others, Denies thoughts of hurting/killing yourself Meds Home Medications Medication Instructions Recorded Confirmed Type tizanidine 4 mg capsule 4 mg PO TIDP PRN 02/22/20 05/01/22 History Metformin HCl [Metformin 1000mg 500 mg PO BIDWMEAL 12/21/21 05/01/22 History Tablets] Nebivolol HCl 5 mg PO DAILY 12/21/21 05/01/22 History Tramadol HCl [Tramadol 50mg 50 - 100 mg PO Q6HP PRN 12/22/21 05/01/22 History Tab] albuterol sulfate 90 mcg/actuation 2 puff IH Q4HP PRN g 12/28/21 05/01/22 History aerosol inhaler ferrous sulfate 325 mg (65 mg 325 mg PO DAILY 03/30/22 05/01/22 History iron) tablet furosemide 40 mg tablet 40 mg PO DIRECTED tab 03/30/22 05/01/22 History promethazine 25 mg tablet 12.5 mg PO Q4HP PRN 03/30/22 05/01/22 History spironolactone 50 mg tablet 50 mg PO DAILY tab 03/30/22 05/01/22 History omeprazole 20 mg capsule,delayed 20 mg PO DAILY cap 04/24/22 05/01/22 History release Fluticasone/Salmeterol [Advair 1 puff IH BID 04/27/22 05/01/22 History 250/50mcg Diskus] Dapagliflozin Propanediol [Farxiga] 10 mg PO DAILY 05/01/22 05/01/22 History Ibuprofen 800 mg PO TIDP PRN 05/01/22 05/01/22 History Sacubitril/Valsartan [Entresto 49 1 each PO BID 05/01/22 05/01/22 History mg-51 mg Tablet] Allergies Allergy/AdvReac Type Severity Reaction Status Date / Time aspirin Allergy Severe S-DIFF. Verified 05/01/22 06:20 BREATHING bee venom protein (honey bee) Allergy Severe Anaphylaxis Verified 05/01/22 06:20 Bleach (Sodium Hypochlorite) Allergy Severe diff. Verified 05/01/22 06:20 breathing, dizzy pneumococcal vaccine Allergy Verified 05/01/22 06:20 sucralose AdvReac Severe breathing Verified 05/01/22 06:20 [From SUCRALOSE (FOOD/DRUG)] problems Exam - Constitutional Constitutional:: Present: no acute distress, comfortable - HENMT Exam [facility]: Present: normocephalic - Eye Exam Eyes:: P
--- NOTE | 2022-05-02 12:55 | HMH.ACPN2 ---
Internal Medicine - PN: Subj *Date: 05/02/22 *Time: 12:56 Interval history: POD # 1 s/p AMLA, Left salpingectomy, Right salpingo-oophorectomy, Incision and drainage of right adnexal cyst She is resting comfortably in bed. Tolerating clear liquid diet. She is not passing flatus. Pain is controlled with medication. Denies fever/chills, chest pain and shortness of breath. One episode of nausea yesterday. No vomiting. Em catheter is in place draining clear yellow urine. Exam Vital signs and Labs for Last 24 Hours: Temp Pulse Resp BP Pulse Ox 97.6 F 74 18 127/60 98 05/02/22 08:00 05/02/22 08:00 05/02/22 08:00 05/02/22 08:00 05/02/22 08:30 Laboratory Results - last 24 hr 05/01/22 08:55: Urine Color Yellow, Urine Appearance Clear, Urine pH 6.0, Ur Specific [place] 1.010, Urine Protein Negative, Urine Glucose (UA) 1+, Urine Ketones Negative, Urine Blood Trace-l, Urine Nitrate Negative, Urine Bilirubin Negative, Urine Urobilinogen 0.2, Ur Leukocyte Esterase Negative, Urine RBC None, Urine WBC 5-10, Ur Squamous Epith Cells Occasional, Urine Bacteria Trace 05/02/22 06:37: POC Glucose 126 H 05/02/22 06:50: WBC 12.2 H D, RBC 4.21, Hgb 10.3 L, Hct 33.9 L, MCV 80.4 L, MCH 24.5 L, MCHC 30.5 L, RDW 24.2 H, Plt Count 333, MPV 8.0, Neut % (Auto) 76.1, Lymph % (Auto) 16.8, Carver % (Auto) 6.3, Eos % (Auto) 0.4, Baso % (Auto) 0.4, Neut # (Auto) 9.3 H, Lymph # (Auto) 2.1, Carver # (Auto) 0.8, Eos # (Auto) 0.1, Baso # (Auto) 0.1 05/02/22 06:50: Sodium 131 L, Potassium 3.8, Chloride 92 L, Carbon Dioxide 34 H, Anion Gap 8.8, BUN 15 D, Creatinine 1.10 H D, Estimated Creat Clear 51, Estimated GFR 53 L, Est GFR ( Amer) 64 D, Glucose 126 H, Calcium 8.4 I & O for Last 24 hours: Intake & Output 04/29/22 04/30/22 05/01/22 05/02/22 23:59 23:59 23:59 23:59 Intake Total 2400 / 2400 1986 Output Total 445 / 445 725 / 725 Balance 1954 1262 / 1262 - Constitutional no acute distress, morbidly obese - *Routine HEENT Exam Head: Present: normocephalic, atraumatic Eye: Absent: conjunctivae pink ENT: Present: mucous membranes moist - *Routine Respiratory Exam Present: CTA bilaterally - *Routine Cardiovascular Exam Present: RRR - *Routine Abdominal Exam Present: soft, tenderness (appropriate tenderness to palpation postoperatively). Absent: normoactive bowel sounds (Hypoactive bowel sounds), distended, guarding Assessment and Plan (1) Adnexal mass Status: Acute Category: Medical Code(s): N94.89 - Other specified conditions associated with female genital organs and menstrual cycle (2) Heavy menstrual bleeding Status: Acute Category: Medical Code(s): N92.0 - Excessive and frequent menstruation with regular cycle (3) Enlarged uterus Status: Acute Category: Medical Code(s): N85.2 - Hypertrophy of uterus (4) Thickened endometrium Status: Acute Category: Medical Code(s): R93.89 - Abnormal findings on diagnostic imaging of other specified body structures (5) Combined abdominal and pelvic pain Status: Acute Category: Medical Code(s): R10.9 - Unspecified abdominal pain; R10.2 - Pelvic and perineal pain (6) BMI 45.0-49.9, adult Status: Acute Category: Medical Code(s): Z68.42 - Body mass index [BMI] 45.0-49.9, adult (7) History of tubal ligation Status: Acute Category: Surgical Code(s): Z98.51 - Tubal ligation status (8) Acute blood loss as cause of postoperative anemia Status: Acute Category: Medical Code(s): D62 - Acute posthemorrhagic anemia - Assessment and plan all Dx Assessment and Plan for all problems:: Continue routine postop care Will offer Senna or Mylicon as well as chewing gum for 20 minutes 2-3 times per day to help augment bowel function. Plan to slowly advance diet. She is tolerating clear liquids. She is wheel chair bound. Goal for today is increasing bowel function and d/c em catheter
--- NOTE | 2022-05-02 16:20 | PC.NURSE ---
Routine reassessment completed. Lungs CTA, BS remain hypoactive. Pt. rates pain at 3/10, ABD binder placed. Incision site noted to be saturated. Dressing removed, ABD pads placed over incision site. pt. toelrated well. No further acute changes noted. Pt denies needs, will continue to monitor.
[2022-05-03] VITALS (7 sets, daily range): BP systolic 94–107; BP diastolic 52–58; PULSE 60–80; RESP 18–19; TEMP 36.7–36.9; O2SAT 97–100
--- NOTE | 2022-05-03 04:00 | PC.NURSE ---
Pt has rested well this shift. A&O X4. Bowels remain hypoactive, though pt does report small amounts of flatus. Lungs CTAB. LEXA Drain remains in place, 30ml drained this shift. Dressing changed at this time, no new drainage noted through shift. Pt ambulates to [facility] x standby assist, tolerates well. Pain managed well with prn meds. No acute changes to pedal edema this shift. VSS, 2L NC. IV to right forearm, patent. Call light in reach.
--- NOTE | 2022-05-03 13:26 | HMH.ACPN2 ---
Internal Medicine - PN: Subj *Date: 05/03/22 *Time: 13:26 Interval history: POD #2 No unusual complaints Bowel sounds and flatus have improved, and she is tolerating liquid diet Voiding without difficulty Pain control has been sufficient No cardiac or respiratory complaints since surgery Telemetry monitoring has been normal LEXA output 115 (serosanguinous) over past 24 hours Exam Vital signs and Labs for Last 24 Hours: Temp Pulse Resp BP Pulse Ox 98.4 F 64 19 97/52 L 100 05/03/22 08:00 05/03/22 08:00 05/03/22 08:00 05/03/22 08:00 05/03/22 09:38 I & O for Last 24 hours: Intake & Output 05/01/22 05/02/22 05/03/22 05/04/22 11:59 11:59 11:59 11:59 Intake Total 4387 / 4387 Output Total 1170 / 1170 1959 Balance 7 / 7 -1959 Narrative: CONSTITUTIONAL: no acute distress HEENT: mucous membranes moist PULMONARY: breathing unlabored without audible wheezes CV: no tachycardia or visible JVD; normal LE peripheral pulses ABD: soft, ND; appropriately tender but no rebound/guarding SKIN: incision well approximated with lars; no clinical signs of infection LEXA drain in place EXT: 1+ edema LEs NEURO: alert/oriented, no altered mental status PSYCH: appropriate mood and demeanor without anxiety/depression Assessment and Plan (1) Adnexal mass Status: Acute Category: Medical Code(s): N94.89 - Other specified conditions associated with female genital organs and menstrual cycle (2) Heavy menstrual bleeding Status: Acute Category: Medical Code(s): N92.0 - Excessive and frequent menstruation with regular cycle (3) Enlarged uterus Status: Acute Category: Medical Code(s): N85.2 - Hypertrophy of uterus (4) Thickened endometrium Status: Acute Category: Medical Code(s): R93.89 - Abnormal findings on diagnostic imaging of other specified body structures (5) Combined abdominal and pelvic pain Status: Acute Category: Medical Code(s): R10.9 - Unspecified abdominal pain; R10.2 - Pelvic and perineal pain (6) BMI 45.0-49.9, adult Status: Acute Category: Medical Code(s): Z68.42 - Body mass index [BMI] 45.0-49.9, adult (7) History of tubal ligation Status: Acute Category: Surgical Code(s): Z98.51 - Tubal ligation status - Assessment and plan all Dx Assessment and Plan for all problems:: Continue postop care with advancement as tolerated LEXA drain output decreasing with postop Hgb as expected Plan dc drain on day of discharge Trial of regular diet today Possible discharge home tomorrow
--- NOTE | 2022-05-03 17:20 | PC.NURSE ---
Routine reassessment completed, ABD pad dressing removed. scant amount of serosanguineous drainage noted. Pt. tolerated well. Site cleansed with 1/2 Sterile water and 1/2 peroxide solution. Sutures remain in place. T&T placed over incision. BS noted to be hyperactive x4 quadrants. No further acute changes noted. Pt. denies needs, will continue to monitor.
--- NOTE | 2022-05-04 04:16 | PC.NURSE ---
Routine reassessment performed at this time. Pt has rested very well this shift. VSS. Lungs CTAB, Bowel sounds active X4. Pt reports passing flatus this shift. Tolerating diet well. Pain controlled well with PRN medication. IV to right arm patent and flushes well. Call light in reach.
[2022-05-04 04:35] VITALS: BP 122/63; PULSE 58; RESP 18; TEMP 36.6; O2SAT 98
--- NOTE | 2022-05-04 06:41 | PC.NURSE ---
incisional dressing to lower abdomen removed and incision cleaned at this time. new dressing applied only around LEXA drain. incision left open to air. no drainage noted to old dressing. incision c/d/i. pt tolerated well
[2022-05-04 08:16] VITALS: O2SAT 99
--- NOTE | 2022-05-04 13:00 | PC.NURSE ---
here to see pt (rounding). LEXA drain removed at this time w/o incident. Pt tolerated well. [id number] and coban applied to site.
[2022-05-04 13:20] VITALS: BMI 46.0
--- NOTE | 2022-05-04 13:56 | HMH.DCSUM ---
General - General Admission date:: 05/01/22 Discharge date: 05/04/22 HPI HPI: 46 year old Admitted for presumed septic shock 03/09/22, although final assessment did not confirm sepsis During evaluation large pelvic mass was noted on CT and BINDING NICKER consult obtained Pelvic ultrasound ordered for further assessment: Uterus 13.6x6.9x5.4cm ES 2.1cm R ovary 12.2x11.6x9.0cm 11.2x10.9x8.9cm cystic mass L ovary 5.7x4.1x3.9cm Tumor markers all normal: CA-125: 16.4 CA 19-9: 15 CEA: 1.2 Office follow up with pap smear (negative) 03/30/22 Cervical polyp noted on exam with uncomplicated removal; pathology benign She was offered more conservative surgical management with laparoscopic RSO and D&C for evaluation of thickened endometrium She has chronic HMB, however, and has previously been transfused twice for severe anemia Hgb 9.8 at time of hospitalization; treated with IV Injectafer prior to surgery date and current Hgb 13.2 She desires permanent surgical management with hysterectomy Endometrial sampling prior to hysterectomy recommended but will be deferred to minimize surgical procedures and general anesthesia risks in context of other complex medical issues; this may require additional surgical procedures if uterine pathology present but previous exam Identified polyp prolapsing through cervix and pathology was benign, which may explain thickened endometrium seen on pelvic ultrasound She has complicated PMH with CHF and 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 chemicals Cardiac clearance for surgery documented 04/04/22 Type 2 DM with POC blood sugar this am 123 Hospital Course Hospital Course: Hospital course uncomplicated She is discharged home on HD #3 in stable condition She is ambulating and voiding without difficulty She is tolerating a regular diet Pain control has been sufficient LEXA drain removed on HD #3 Objective Vital signs: Temp Pulse Resp BP Pulse Ox 97.9 F 58 L 18 122/63 99 05/04/22 04:35 05/04/22 04:35 05/04/22 04:35 05/04/22 04:35 05/04/22 08:16 no acute distress - *Routine HEENT Exam Head: Present: normocephalic Eye: Present: EOMI, PERRL ENT: Present: mucous membranes moist - *Routine Neck Exam Present: supple - *Routine Respiratory Exam Present: CTA bilaterally - *Routine Cardiovascular Exam Present: RRR - *Routine Abdominal Exam Present: soft, normoactive bowel sounds. Absent: tenderness - *Routine Extremities Exam Absent: cyanosis, clubbing, edema - *Routine Skin Exam Present: warm. Absent: rash Comments: midline incision intact - Detailed Eye Exam Eyelids: Bilateral normal inspection DS: Diagnosis - Discharge Diagnosis (1) Adnexal mass Status: Acute (2) Heavy menstrual bleeding Status: Acute (3) Enlarged uterus Status: Acute (4) Thickened endometrium Status: Acute (5) Combined abdominal and pelvic pain Status: Acute (6) BMI 45.0-49.9, adult Status: Acute (7) History of tubal ligation Status: Acute (8) S/P hysterectomy Status: Acute Discharge Plan - Patient Discharge Instructions ACTIVITY: Continue current activity DIET: regular diet Additional Instructions: Nothing in the vagina for 6 weeks. No tub baths No heavy lifting No strenuous activity. Patient Instructions: How to Care for a Surgical Wound, DI for Hysterectomy, DI for Postoperative Pain - Follow up Plan Follow up with: Parvin Jacobsen MD [Staff Physician] - Kylie Harmon MD [Physician] - 06/05/22 1:00 pm (PFT with 6 minute walk and overnight pulse ox.) Disposition: Home, Self-Care Condition at discharge:: Stable Home Medications: Home Medications Medication Instructions Recorded Confirmed Type tizanidine 4 mg capsule 4 mg PO TIDP PRN 02/22/20 05/01/22 History Metformin HCl [Metformin 1000mg 500 mg PO BIDWMEAL 12/21/21 05/01/22 History Tablets] Nebivolol HCl 5 mg PO DAILY 12/21/21 05/01/22 History Tramadol HCl [Tramadol 50
== END 2022-05-04 16:50 | disposition home or self-care (01) | DRG 742 ==
LOC: OB 13:47
PROVIDERS: Admitting Provider Obstetrics & Gynecology; PCP Internal Medicine; Visit Provider Obstetrics & Gynecology
PROC: 0UT90ZZ Resection of Uterus, Open Approach (ICD-10-PCS; CPT 58150; principal; 2022-05-01 07:30)
DX: N85.2 Hypertrophy of uterus (principal); D62 Acute posthemorrhagic anemia; N92.0 Excessive and frequent menstruation with regular cycle; I11.0 Hypertensive heart disease with heart failure; I50.9 Heart failure, unspecified; E11.9 Type 2 diabetes mellitus without complications; Z79.84 Long term (current) use of oral hypoglycemic drugs; Z79.899 Other long term (current) drug therapy; J44.9 Chronic obstructive pulmonary disease, unspecified; Z88.8 Allergy status to other drugs, medicaments and biological substances; N94.89 Other specified conditions associated with female genital organs and menstrual cycle; R93.89 Abnormal findings on diagnostic imaging of other specified body structures
CPT/HCPCS: 58150; 36415; 71045; 80048; 80053; 80305; 81001; 82962; 84702; 85025; 86850; 94640; C9290; C9803; J2405; J2710; U0003; U0005

== ENCOUNTER → 2022-05-17 16:12 | Outpatient (CLI) | payer OTHER, SELFPAY | PROVIDERS: PCP Internal Medicine; Visit Provider Obstetrics & Gynecology | DX: Z48.89 Encounter for other specified surgical aftercare (principal); T81.30XA Disruption of wound, unspecified, initial encounter | CPT/HCPCS: 87070; 87077; 87186; 87205 ==

== ENCOUNTER 2022-06-05 14:00 | Outpatient (RCR) | payer OTHER, SELFPAY ==
--- NOTE | 2022-05-11 08:59 | HMH.PTOPWND ---
Rehab Outpt Wound Evaluation Rehab OP Wound Evaluation Start: 05/11/22 08:28 Freq: Status: Active Protocol: Document 05/11/22 08:30 JN (Rec: 05/11/22 08:59 PHORNE [id number]) Electronically Signed By Justin Villafana, PT 05/11/22 08:30 Subjective/History History History Pt is 47 yowf who presents ~ 10 days S/P ALMA with poor incisional healing. Currently open area at superior end of incision with [address] distal to this area. Iodoform gauze packing in the open wound at present. Pt reports mild abdominal pain at baseline, worse with dressing changes. Wound tunnelling noted inferiorly along incision line under rose this date and difficult to assess full length due to abdominal mass and curvature. She reports hx of COPD, CHF, HTN, DM-II, MRSA . Subjective Subjective Currently pain 3/10. Palpation tenderness 2/4 in magali-wound area and generally in LLQ. Wound Eval Wound Anterior Abdomen Wound Type Incision Is This a Chronic Wound No Wound Length (cm) 3.2 Wound Width (cm) 1.3 Wound Depth (cm) 5.0 Number of [place] 20 Number of Rose Removed 0 Wound Bed Appearance Beefy Red,Yellow Percentage Granulated (%) 90 Wound Margins Description Well Defined Tunneling Position 6 o'clock Tunneling Depth (cm) 7.0 Surrounding Tissue Appearance Bernard Edema Appearance Tight Drainage Description Serosanguineous Drainage Amount Large Wound Topical Solution/Irrigant Saline Irrigant Packing Type Specialty Absorptive Comment aquacel x 1, opticell x 1 Primary Dressing Composite Comment optiofal gentle border SA Wound Debridement Method Gauze,Mechanical Wound Debridement Amount of Tissue Minimal Removed Dressing Change Patient Tolerance Tolerated Well Wound Problems/Impairments Impairments Problems/Impairmments Palpation Tenderness,Impaired Endurance,Impaired Transfers, Impaired Gait Pattern,Impair
== END 2022-06-05 14:05 | disposition home or self-care (01) ==
LOC: PT 14:00
PROVIDERS: Visit Provider Obstetrics & Gynecology
DX: S31.109A Unspecified open wound of abdominal wall, unspecified quadrant without penetration into peritoneal cavity, initial encounter (principal); T81.30XA Disruption of wound, unspecified, initial encounter
CPT/HCPCS: 97163; 97597

== ENCOUNTER → 2022-07-18 13:30 | Outpatient (CLI) | payer OTHER, SELFPAY ==
[2022-07-18 14:58] LABS: Basophils # 0.1 K/mm3 (0-0.2); Basophils % 0.6 % (0.1-2.0); Eosinophils # 0.1 K/mm3 (0.0-0.4); Eosinophils % 1.3 % (0.1-12.0); Hematocrit 44.4 % (37.0-47.0); Lymphocytes # 2.9 K/mm3 (0.7-4.5); Lymphocytes % 26.2 % (10-50); Mean Corpuscular HGB Conc 31.5 g/dL (31.8-35.4); Mean Corpuscular Hemoglobin 28.1 pg (27.0-31.2); Mean Corpuscular Volume 89.1 fl (81-99); Mean Platelet Volume 8.5 fl (7.4-10.4); Monocytes # 0.5 K/mm3 (0.1-1.0); Monocytes % 4.2 % (1.7-9.3); Neutrophils # 7.4 K/mm3 (1.8-7.8); Neutrophils % 67.6 % (37.0-80.0); Platelet Count 421 K/mm3 (142-424); Red Blood Count 4.98 M/mm3 (4.20-5.40); Red Cell Distribution Width 16.6 % (11.5-17.5)
[2022-07-18 15:18] LABS: Alanine Aminotransferase 29 U/L (12-78); Albumin Level 3.7 g/dl (3.5-5.0); Alkaline Phosphatase 103 U/L (38-126); Anion Gap 17.2 mEq/L (5-15); Aspartate Amino Transferase 23 U/L (14-36); Bilirubin,Unconjugated 0.2 mg/dL (0.0-1.1); Blood Urea Nitrogen 16 mg/dl (7-17); Calcium 9.1 mg/dl (8.4-10.2); Carbon Dioxide 26 mmol/L (22.0-30.0); Chloride 97 mmol/L (98-107); Cholesterol 198 mg/dl (140-200); Estimated Glomerular Filt Rate 106 ml/min (>60); GFR (African American) 129 ML/MIN (>60); Glucose 97 mg/dl (74-100); Magnesium 1.7 mg/dl (1.6-2.3); Potassium 4.2 mmoL/L (3.5-5.1); Sodium 136 mmol/L (136-145); Total Protein,Serum 6.3 g/dl (6.3-8.2); Triglycerides 194 mg/dl (30-150); VLDL Cholesterol 39 mg/dL (0-40)
[2022-07-18 15:30] LABS: Direct LDL Cholesterol 138.12 mg/dL (100-129)
[2022-07-18 15:35] LABS: Free T4 (Free Thyroxine) 1.24 ng/dl (0.78-2.19)
[2022-07-18 15:51] LABS: Thyroid Stimulating Hormone 3.51 uIU/mL (0.465-4.68)
[2022-07-18 16:25] LABS: Chol/HDL Ratio 6.2 (1-3.5); HDL Cholesterol 32 mg/dl (40-60)
[2022-07-18 16:27] LABS: Bilirubin,Indirect 0.1 mg/dL (0.0-0.9); Bilirubin,Total < 0.1 mg/dl (0.2-1.3)
== END ==
PROVIDERS: PCP Internal Medicine; Visit Provider Physician Assistant
DX: R06.09 Other forms of dyspnea (principal); R42 Dizziness and giddiness; I11.0 Hypertensive heart disease with heart failure; I50.30 Unspecified diastolic (congestive) heart failure; I34.0 Nonrheumatic mitral (valve) insufficiency
CPT/HCPCS: 36415; 80048; 80061; 80076; 83735; 84439; 84443; 85025

== ENCOUNTER 2022-07-27 15:00 | Outpatient (RCR) | payer OTHER, SELFPAY | END 2022-07-27 15:05 | disposition home or self-care (01) | LOC: OT 15:00 | PROVIDERS: Visit Provider Orthopaedic Surgery Adult Reconstructive Orthopaedic Surgery | DX: M25.511 Pain in right shoulder (principal); M75.01 Adhesive capsulitis of right shoulder | CPT/HCPCS: 97010; 97014; 97110; 97140; 97164; 97165; G0283 ==

== ENCOUNTER 2022-07-27 15:33 | Observation (INO) | payer OTHER, SELFPAY ==
[2022-07-27] VITALS (13 sets, daily range): BP systolic 115–172; BP diastolic 62–96; PULSE 51–77; RESP 15–23; TEMP 36.4–36.7; O2SAT 93–99; BMI 44.2; BMI 44.9
--- NOTE | 2022-07-27 15:28 | ECG_ITS ---
APPROVED REPORT Exam: Resting ECG HR:82 bpm ECG Measurements Heart Rate 82 AXES CA 162 P 27 QRSd 84 QRS 46 QT 376 T 29 QTc 414 Conclusion SINUS RHYTHM LOW QRS VOLTAGE IN PRECORDIAL LEADS Late r wave progression - previously noted Ow normal ecg UNCONFIRMED REPORT Electronically signed by : Ahsan Chew MD 07/28/2022 16:05:55
--- NOTE | 2022-07-27 15:38 | XR_ITS ---
FINAL REPORT CLINICAL HISTORY: chest pain COMPARISON: 05/01/2022 FINDINGS: The heart size is normal. The mediastinum is normal. There is no focal infiltrate or edema. There are no pleural effusions. There is no pneumothorax. IMPRESSION: No acute cardiopulmonary process Reviewed, Interpreted and Dictated by Andreea Mar MD Transcribed by Terri Davis Authenticated and [facility]
[2022-07-27 15:48] LABS: Basophils # 0.2 K/mm3 (0-0.2); Eosinophils # 0.1 K/mm3 (0.0-0.4); Eosinophils % 0.7 % (0.1-12.0); Hematocrit 47.4 % (37.0-47.0); Lymphocytes # 4.5 K/mm3 (0.7-4.5); Lymphocytes % 21.1 % (10-50); Mean Corpuscular HGB Conc 33.7 g/dL (31.8-35.4); Mean Corpuscular Hemoglobin 29.1 pg (27.0-31.2); Mean Corpuscular Volume 86.4 fl (81-99); Mean Platelet Volume 7.7 fl (7.4-10.4); Monocytes % 4.6 % (1.7-9.3); Neutrophils # 15.6 K/mm3 (1.8-7.8); Neutrophils % 72.6 % (37.0-80.0); Platelet Count 532 K/mm3 (142-424); Red Blood Count 5.49 M/mm3 (4.20-5.40); Red Cell Distribution Width 15.7 % (11.5-17.5); White Blood Count 21.4 K/mm3 (4.8-10.8)
[2022-07-27 15:52] LABS: MANUAL DIFFERENTIAL MANUAL DIFFERENTIAL (MANUAL DIFF)
[2022-07-27 15:59] LABS: Chloride 97 mmol/L (98-107); Sodium 138 mmol/L (136-145)
[2022-07-27 16:02] LABS: Blood Urea Nitrogen 18 mg/dl (7-17); Calcium 9.2 mg/dl (8.4-10.2); Carbon Dioxide 28 mmol/L (22.0-30.0); Creatinine Clearance Estimated 70 mL/min (50-200); Estimated Glomerular Filt Rate 76 ml/min (>60); GFR (African American) 92 ML/MIN (>60); Glucose 100 mg/dl (74-100)
[2022-07-27 16:05] LABS: Hypochromasia 2+; Lymphocytes % 21 % (10-50); Monocytes % 6 % (2-9); Neutrophils % 73 % (42-76); Platelet Estimate Normal; Stomatocytes 1+; Total Cells Counted 100
--- NOTE | 2022-07-27 16:14 | PC.NURSE ---
Pt to [facility] , Sample sent
--- NOTE | 2022-07-27 16:14 | PC.NURSE ---
Pt to RAD
[2022-07-27 16:18] LABS: Troponin I < 0.01 ng/ml (0.00-0.034)
[2022-07-27 17:02] LABS: Appearance,Urine CLEAR (Clear); Bilirubin,Urine Negative (Negative); Blood, Urine Negative (Negative); Glucose,Urine (UA) 3+ (Negative); Ketones,Urine Negative (Negative); Leukocyte Esterase,Urine Negative (Negative); Microscopic, Urine URINE MICROSCOPIC (MICROSCOPIC); Nitrate,Urine POSITIVE (Negative); PH,Urine 5.5 (5.0-8.5); Protein,Urine TRACE (Negative); Specific Gravity, Urine 1.015 (1.005-1.030)
[2022-07-27 17:05] LABS: Color,Urine Orange (Yellow)
[2022-07-27 17:09] LABS: Bacteria,Urine Trace /lpf; RBC,Urine Occasional #/hpf (0-3)
--- NOTE | 2022-07-27 17:12 | CT_ITS ---
PROCEDURE INFORMATION: Exam: CT Abdomen And Pelvis Without Contrast Exam date and time: 07/27/2022 5:17 PM Age: 47 years old Clinical indication: Abdominal pain; Flank; Right; Prior surgery; Surgery date: 6+ months; Surgery type: Hysterectomy; Additional info: Right flank pain TECHNIQUE: Imaging protocol: Computed tomography of the abdomen and pelvis without contrast. Radiation optimization: All CT scans at this facility use at least one of these dose optimization techniques: automated exposure control; mA and/or kV adjustment per patient size (includes targeted exams where dose is matched to clinical indication); or iterative reconstruction. COMPARISON: CT ABDOMEN PELVIS W CON 03/09/2022 5:01 AM FINDINGS: Liver: Normal. No mass. Gallbladder and bile ducts: Cholecystectomy Pancreas: Normal. No ductal dilation. Spleen: Normal. No splenomegaly. Adrenal glands: Normal. No mass. Kidneys and ureters: Nonobstructing renal calculi bilaterally. Largest calculus on the right 13.8 mm . Multiple smaller renal calculi on the left. No ureteral calculus Stomach and bowel: Unremarkable. No obstruction. No mucosal thickening. Appendix: The distal aspect of the appendix measures 10.8 mm. Series 3, image 87. However there are no periappendiceal inflammatory changes. This may represent normal variant versus early acute appendicitis in the appropriate clinical setting.. Intraperitoneal space: Unremarkable. No free air. No significant fluid collection. Vasculature: Unremarkable. No abdominal aortic aneurysm. Lymph nodes: Unremarkable. No enlarged lymph nodes. Urinary bladder: Unremarkable as visualized. Reproductive: Surgical resection of the uterus 5.5 by 3.7 cm cystic structure anterior to the right psoas and adjacent to the appendix. See series 3, image 87. There are no adjacent inflammatory changes. Differential includes right ovarian cyst.. Bones/joints: Unremarkable. No acute fracture. Soft tissues: Unremarkable. IMPRESSION: 1. The distal aspect of the appendix measures 10.8 mm. Series 3, image 87. However there are no periappendiceal inflammatory changes. This may represent normal variant versus early acute appendicitis in the appropriate clinical setting.. 2. 5.5 by 3.7 cm cystic structure anterior to the right psoas and adjacent to the appendix. See series 3, image 87. There are no adjacent inflammatory changes. Differential includes right ovarian cyst..
--- NOTE | 2022-07-27 17:15 | HMH.EDGENADL ---
Discharge Plan Disposition Patient Disposition: Admitted as Observation Condition: Fair Clinical Impressions Clinical Impression: Chest pain, Right pelvic adnexal fluid collection, Leukocytosis Discharge ED Provider: Yovani Holder General Adult HPI General Chief complaint: Chest Pain Stated complaint: chest pain Time Seen by Provider: 07/27/22 17:00 Mode of Arrival: Ambulatory Limitations: No Limitations Description of Symptoms (Recalled from ER Triage Doc. by RN): Pt was currently in the rehab department having PT done and began to experience CP and pressure in the center of her chest that she also states hurts in her back. She also c/o dizziness, soa, and nausea. Pt states she took one SL nitro and did relieve her pain for 3 minutes. History of Present Illness HPI narrative: Complains of chest pain and also right flank pain. States that she has a history of recurrent chest pain. States that she has congestive heart failure, diastolic, with preserved ejection fraction. She takes nitroglycerin when she gets chest pain. She was at physical therapy today and began experiencing some chest pressure in the center of her chest and took a nitroglycerin. Her chest pain persists. She says that she had a heart cath in November that was clean. She sees Dr. Zhao. She also has right flank pain which she says is an ongoing problem, chronic. Her episode today started about 2 PM. She has taken an Azo so her urine is discolored. She says that she has a right-sided renal stone that is too large to do anything about. She says that she last had an ultrasound done here in February, she was supposed to follow-up with urology, but our urologist here is leaving so she has not yet seen a urologist. Denies fever or vomiting. States she had an allergic reaction, possibly to a new cholesterol medication, with a facial rash, seen in the emergency department in [place] on Saturday and received intravenous steroids. She was subsequently called in a prescription for prednisone, but says she has not taken any oral prednisone. She also wonders whether she might be dehydrated from her diuretics. Related Data Home Medications Medication Instructions Recorded Confirmed tizanidine 4 mg capsule (Zanaflex) 4 mg PO TIDP PRN Muscle Spasm 02/22/20 07/18/22 metformin 1,000 mg tablet 500 mg PO BIDWMEAL Diabetes 12/21/21 07/18/22 nebivolol 5 mg tablet 5 mg PO DAILY Hypertension 12/21/21 07/18/22 tramadol 50 mg tablet 50 - 100 mg PO Q6HP PRN Moderate 12/22/21 07/18/22 Pain albuterol sulfate 90 mcg/actuation 2 puff inhalation Q4HP PRN 12/28/21 07/18/22 aerosol inhaler (ProAir HFA) Shortness Of Breath ferrous sulfate 325 mg (65 mg 325 mg PO DAILY Supplement 03/30/22 07/18/22 iron) tablet promethazine 25 mg tablet 12.5 mg PO Q4HP PRN Nausea 03/30/22 07/18/22 spironolactone 50 mg tablet 50 mg PO DAILY Fluid 03/30/22 07/18/22 (Aldactone) omeprazole 20 mg capsule,delayed 20 mg PO DAILY GERD 04/24/22 07/18/22 release fluticasone 250 mcg-salmeterol 50 1 puff inhalation BID COPD 04/27/22 07/18/22 mcg/dose blistr powdr for inhalation ibuprofen 800 mg tablet 800 mg PO TIDP PRN Mild 05/01/22 07/18/22 Pain,Fever,Headache sacubitril 49 mg-valsartan 51 mg 1 each PO BID CHF 05/01/22 07/18/22 tablet Previous Rx's Medication Instructions Recorded acetaminophen 325 mg tablet 650 mg PO Q4HP PRN Mild Pain 05/04/22 oxycodone 5 mg tablet 10 mg PO Q6HP PRN Moderate To 05/11/22 Severe Pain #30 tabs levofloxacin 750 mg tablet 750 mg PO DAILY #10 tabs 05/21/22 fluconazole 150 mg tablet 150 mg PO ONCE #2 tabs 05/29/22 (Diflucan) dapagliflozin 10 mg tablet See Rx Instructions .Route 07/03/22 (Farxiga) .COMPLEX #30 tabs furosemide 40 mg tablet See Rx Instructions .Route 07/18/22 .COMPLEX #324 tabs rosuvastatin 40 mg tablet (Crestor) 40 mg PO DAILY #30 tabs 07/20/22 Allergies Allergy/AdvReac Type Severity Reaction Status Date / Time aspirin Al
--- NOTE | 2022-07-27 17:27 | PC.NURSE ---
return from ct
[2022-07-27 17:37] LABS: Lactic Acid 1.5 mmol/L (0.7-2.1)
--- NOTE | 2022-07-27 18:04 | PC.NURSE ---
JEANNETTE URIBE speaking with silvestre
--- NOTE | 2022-07-27 18:09 | PC.NURSE ---
paged gen SX
--- NOTE | 2022-07-27 18:32 | PC.NURSE ---
Had Jorje Zhao and [place]
--- NOTE | 2022-07-27 18:34 | PC.NURSE ---
JEANNETTE URIBE speaking with dr. noriega
--- NOTE | 2022-07-27 18:45 | US_ITS ---
PROCEDURE INFORMATION: Exam: US Nonobstetric Pelvis; Complete Exam date and time: 07/27/2022 7:13 PM Age: 47 years old Clinical indication: Other: Rlq fluid; Prior surgery; Surgery date: 1-6 months; Surgery type: Right ovary and uterus removed; Additional info: R pelvic fluid collection, recent monica/rso/l oopho TECHNIQUE: Imaging protocol: Transabdominal pelvic nonobstetric ultrasound. Complete exam. Real time ultrasound with image documentation. COMPARISON: US PELVIC 03/09/2022 7:45 AM FINDINGS: Uterus: Surgical resection of the uterus Right ovary/adnexa: The right ovary has been removed. Left ovary/adnexa: Left ovary measures 2.46 x 2.9 x 1.9 cm. Appendix: Sonolucent mass in the right lower quadrant 6.5 x 3.5 by 3.8 cm.. Intraperitoneal space: No intraperitoneal fluid. Urinary bladder: Normal. IMPRESSION: 1. Sonolucent mass in the right lower quadrant 6.5 x 3.5 by 3.8 cm.. Additional history has been obtained stating that there has been a right oophorectomy. Consequently the differential diagnosis of the fluid collection includes abscess and seroma although there are no inflammatory changes around the fluid collection on the CT 2. The right ovary has been removed.
--- NOTE | 2022-07-27 18:46 | CT_ITS ---
PROCEDURE INFORMATION: Exam: CT Abdomen And Pelvis With Contrast Exam date and time: 07/27/2022 8:19 PM Age: 47 years old Clinical indication: Abdominal pain; Other: Rlq; Prior surgery; Surgery date: 1-6 months; Surgery type: RT ovary and uterus removed. Past HX of gb removed; Additional info: Enlarged appendix tip, R pelvic fluid collection as seen on prior CT abd/pelvis wo contrast and ultrasound pelvis tonight. TECHNIQUE: Imaging protocol: Computed tomography of the abdomen and pelvis with contrast. Radiation optimization: All CT scans at this facility use at least one of these dose optimization techniques: automated exposure control; mA and/or kV adjustment per patient size (includes targeted exams where dose is matched to clinical indication); or iterative reconstruction. Contrast material: ISOVUE; Contrast volume: 75 ml; Contrast route: IV; Other contrast: Oral, gastroview, 30; COMPARISON: CT ABDOMEN PELVIS WO CON 07/27/2022 5:17 PM FINDINGS: Liver: Normal. No mass. Gallbladder and bile ducts: Cholecystectomy Pancreas: Normal. No ductal dilation. Spleen: Normal. No splenomegaly. Adrenal glands: Normal. No mass. Kidneys and ureters: Again demonstrated are multiple nonobstructing renal calculi Stomach and bowel: 6.2 by 5.2 by 2.5 cm cm fluid collection in the right hemipelvis adjacent to loops of small bowel. Series 3, image 80-96. Series 1001 image 50. Series 1002, image 51Differential includes abscess, hematoma, seroma.. . Appendix: The appendix is normal. Series 3 image 76-78 Intraperitoneal space: Unremarkable. No free air. No significant fluid collection. Vasculature: Unremarkable. No abdominal aortic aneurysm. Lymph nodes: Unremarkable. No enlarged lymph nodes. Urinary bladder: Unremarkable as visualized. Reproductive: Unremarkable as visualized. Bones/joints: Unremarkable. No acute fracture. Soft tissues: Unremarkable IMPRESSION: 6.2 by 5.2 by 2.5 cm cm fluid collection in the right hemipelvis adjacent to loops of small bowel. Series 3, image 80-96. Series 1001 image 50. Series 1002, image 51Differential includes abscess, hematoma, seroma... Normal appendix
[2022-07-27 19:21] LABS: Troponin I < 0.01 ng/ml (0.00-0.034)
[2022-07-27 19:38] LABS: Coronavirus 19, PCR Not Detected (NotDetected); Influenza A, PCR Not Detected (NotDetected); Influenza B, PCR Not Detected (NotDetected)
--- NOTE | 2022-07-27 20:38 | PC.NURSE ---
Pt up to bathroom with assistance from
--- NOTE | 2022-07-27 21:49 | PC.NURSE ---
PT ARRIVED TO FLOOR VIA @ [phone]
--- NOTE | 2022-07-27 22:13 | PC.NURSE ---
PAGED DR HAN REGARDING VALSARTAN DOSE. WAS ORDERED TO GIVE 1 24/26MG TABLET PO FOR TONIGHT.
[2022-07-27 22:47] LABS: Troponin I < 0.01 ng/ml (0.00-0.034)
--- NOTE | 2022-07-27 22:49 | PC.NURSE ---
Report previously called to FREDY Matos.
[2022-07-28] VITALS: BP 121/52; PULSE 60; PULSE 62; RESP 16; TEMP 36.6; O2SAT 97
[2022-07-28 04:00] VITALS: BP 111/68; PULSE 57; PULSE 60; RESP 16; TEMP 36.7; O2SAT 100
[2022-07-28 04:55] VITALS: BMI 44.9
--- NOTE | 2022-07-28 05:02 | PC.NURSE ---
pt admitted this shift. reported pain of level 3 on admission, but was comfortable and didn't need prn meds for pain. she is a&oX4. HR has been 57-62. she requested 2L o2 nc while sleeping, this is what she uses at home. abdomen was tender on palpation. uses wheelchair with standby-X1 assist. call light is within reach. no needs at this time.
[2022-07-28 05:53] LABS: POC Glucose,Bedside 119 (70-110)
[2022-07-28 06:52] LABS: Basophils # 0.2 K/mm3 (0-0.2); Basophils % 1.1 % (0.1-2.0); Eosinophils # 0.2 K/mm3 (0.0-0.4); Eosinophils % 1.3 % (0.1-12.0); Hematocrit 44.9 % (37.0-47.0); Lymphocytes # 3.2 K/mm3 (0.7-4.5); Lymphocytes % 22.4 % (10-50); Mean Corpuscular HGB Conc 32.5 g/dL (31.8-35.4); Mean Corpuscular Hemoglobin 28.7 pg (27.0-31.2); Mean Corpuscular Volume 88.3 fl (81-99); Mean Platelet Volume 8.1 fl (7.4-10.4); Monocytes # 0.6 K/mm3 (0.1-1.0); Monocytes % 4.2 % (1.7-9.3); Platelet Count 384 K/mm3 (142-424); Red Blood Count 5.08 M/mm3 (4.20-5.40); Red Cell Distribution Width 15.8 % (11.5-17.5); White Blood Count 14.1 K/mm3 (4.8-10.8)
[2022-07-28 06:53] LABS: Hemoglobin 14.4 g/dL (12.2-16.2)
[2022-07-28 06:54] LABS: Chloride 96 mmol/L (98-107); Potassium 3.7 mmoL/L (3.5-5.1); Sodium 141 mmol/L (136-145)
[2022-07-28 06:58] VITALS: O2SAT 98
[2022-07-28 06:58] LABS: Anion Gap 12.7 mEq/L (5-15); Blood Urea Nitrogen 20 mg/dl (7-17); Calcium 8.8 mg/dl (8.4-10.2); Carbon Dioxide 36 mmol/L (22.0-30.0); Creatinine Clearance Estimated 60 mL/min (50-200); Estimated Glomerular Filt Rate 67 ml/min (>60); GFR (African American) 81 ML/MIN (>60); Glucose 119 mg/dl (74-100)
[2022-07-28 07:37] VITALS: BP 97/51; PULSE 51; RESP 15; TEMP 36.6; O2SAT 97
[2022-07-28 08:00] VITALS: PULSE 63; O2SAT 97
--- NOTE | 2022-07-28 09:20 | EXP.HP ---
History of Present Illness *History of present illness: She was at physical therapy yesterday and began experiencing some chest pressure in the center of her chest and took a nitroglycerin.? Her chest pain persisted and she was sent to the ER. States that she has a history of recurrent chest pain.? States that she has congestive heart failure, diastolic, with preserved ejection fraction.? She takes nitroglycerin when she gets chest pain.? ? She says that she had a heart cath in November that was normal.? She follows with Dr. Zhao. She also complained of right flank pain.? She had taken an Azo so her urine was discolored.? She says that she has a right-sided renal stone that is too large to do anything about.? She says that she last had an ultrasound done here in February, she was supposed to follow-up with urology, but our urologist here is leaving so she has not yet seen a urologist.? Denies fever or vomiting. States she had an allergic reaction, possibly to a new cholesterol medication, with a facial rash, seen in the emergency department in [place] on Saturday and received intravenous steroids.? She was subsequently called in a prescription for prednisone, but says she has not taken any oral prednisone. She was worked up in the ER and found to have a fluid collection in the right pelvis c/w with either seroma or abscess. The ER physician consulted with Dr. Naqvi and Dr. Recinos. She has been admitted with plan for possible surgery today after cardiology clearance. At the present time, she still c/o chest pain and flank pain but not as bad. Cardiac enzymes are normal x 3. PFSH PFS Medical History Chest pain, atypical Dizziness Dyspnea Syncope Surgical History History of tubal ligation S/P hysterectomy S/P right oophorectomy Family History Other Alzheimer disease Bipolar 1 disorder Dementia Family history of diabetes mellitus type II Family history of myocardial infarction Lung cancer Lupus Social History Smoking Status: Never smoker second hand exposure: No alcohol intake: current substance use type: denies use current occupational status: unemployed and disabled Travel in the last 8 weeks: None household members: spouse housing: house current occupational exposures/hazards: No caffeine: Yes Review of Systems Constitutional Constitutional: Denies chills, Denies headache(s) and Reports weakness Eyes Eyes: Reports system reviewed and no additional complaints, except as documented ENT Ears, Nose, Mouth, and Throat: Reports system reviewed and no additional complaints, except as documented and Denies headache(s) *Cardiovascular Cardiovascular: Reports chest pain at rest, Denies dyspnea, Denies edema, Denies irregular heart rhythm and Denies leg edema *Respiratory Respiratory: Denies chest congestion, Denies cough and Denies dyspnea *Gastrointestinal Gastrointestinal: Reports abdominal pain, Denies change in bowel habits, Denies constipation, Denies diarrhea, Denies heartburn and Denies vomiting *Genitourinary Genitourinary: Denies abnormal vaginal bleeding *Musculoskeletal Musculoskeletal: Denies muscle cramps, Denies myalgias and Denies numbness Integumentary/Breasts Skin/Breast: Denies jaundice and Denies pruritus *Neurologic Neurologic: Denies headache(s), Denies numbness and Reports weakness Psychiatric Psychiatric: Denies anxiety and Denies depression Meds Home Medications and Allergies Home Medications Medication Instructions Recorded Confirmed Type tizanidine 4 mg capsule (Zanaflex) 4 mg PO TIDP PRN Muscle Spasm 02/22/20 07/27/22 History metformin 1,000 mg tablet 500 mg PO BIDWMEAL Diabetes 12/21/21 07/27/22 History nebivolol 5 mg tablet 5 mg PO DAILY Hypertension 12/21/21
--- NOTE | 2022-07-28 09:56 | EXP.SURG.CON ---
History of Present Illness *Admission Date: 07/27/22 *Reason for visit:: Right flank/abdominal pain *History of present illness: This is a 47-year-old female seen in consultation after presentation to the emergency department with right flank pain. Initial CT scan without contrast raise question for slightly enlarged appendiceal tip. The surgical service was consulted. Please see note forwarded from emergency department evaluation/admission H&P below. Forwarded from emergency department evaluation and admission H&P: She was at physical therapy yesterdayand began experiencing some chest pressure in the center of her chest and took a nitroglycerin.? Her chest pain persisted and she was sent to the ER. States that she has a history of recurrent chest pain.? States that she has congestive heart failure, diastolic, with preserved ejection fraction.? She takes nitroglycerin when she gets chest pain.? ? She says that she had a heart cath in November that was clean.? She sees Dr. Zhao. She also complained of right flank pain.? She had taken an Azo so her urine was discolored.? She says that she has a right-sided renal stone that is too large to do anything about.? She says that she last had an ultrasound done here in February, she was supposed to follow-up with urology, but our urologist here is leaving so she has not yet seen a urologist.? Denies fever or vomiting. States she had an allergic reaction, possibly to a new cholesterol medication, with a facial rash, seen in the emergency department in [place] on Saturday and received intravenous steroids.? She was subsequently called in a prescription for prednisone, but says she has not taken any oral prednisone. She was worked up in the ER and found to have a fluid collection in the right pelvis c/w with either seroma or abscess. The ER physician consulted with Dr. Naqvi and Dr. Recinos. She has been admitted with plan for possible surgery today after cardiology clearance. At the present time, she still c/o chest pain and flank pain but not as bad. Cardiac enzymes are normal x 3. PFSH PFSH Medical History Chest pain, atypical Dizziness Dyspnea Syncope Family History (Updated 07/27/22 @ 23:07 by Shawna Vázquez RN) Lupus Alzheimer disease Dementia Family history of diabetes mellitus type II Family history of myocardial infarction Lung cancer Bipolar 1 disorder Social History Smoking Status: Never smoker second hand exposure: No alcohol intake: current substance use type: denies use current occupational status: unemployed and disabled Travel in the last 8 weeks: None household members: spouse housing: house current occupational exposures/hazards: No caffeine: Yes Review of Systems Constitutional Constitutional: Denies headache(s) and Reports weakness ENT Ears, Nose, Mouth, and Throat: Denies headache(s) *Musculoskeletal Musculoskeletal: Denies numbness *Neurologic Neurologic: Denies headache(s), Denies numbness and Reports weakness Meds Home Medications and Allergies Home Medications Medication Instructions Recorded Confirmed Type tizanidine 4 mg capsule (Zanaflex) 4 mg PO TIDP PRN Muscle Spasm 02/22/20 07/27/22 History metformin 1,000 mg tablet 500 mg PO BIDWMEAL Diabetes 12/21/21 07/27/22 History nebivolol 5 mg tablet 5 mg PO DAILY Hypertension 12/21/21 07/27/22 History tramadol 50 mg tablet 50 - 100 mg PO Q6HP PRN Moderate 12/22/21 07/27/22 History Pain albuterol sulfate 90 mcg/actuation 2 puff inhalation Q4HP PRN 12/28/21 07/27/22 History aerosol inhaler (ProAir HFA) Shortness Of Breath ferrous sulfate 325 mg (65 mg 325 mg PO DAILY Supplement 03/30/22 07/27/22 History iron) tablet
--- NOTE | 2022-07-28 10:30 | EXP.GYNCONS ---
History of Present Illness *Admission Date: 07/27/22 *History of present illness: This is a 47-year-old female seen in consultation after presentation to the emergency department with right flank pain. Initial CT scan without contrast raised question for slightly enlarged appendiceal tip and a cystic structure in the right hemipelvis, 5.5 by 3.7 cm cystic structure anterior to the right psoas and adjacent to the appendix. Patient is ~ 3 months s/p ALMA, BSO, Left salpingectomy. The surgical service and Expedition Supervisor service was consulted. Pelvic ultrasound was ordered and demonstrated sonolucent mass in the right lower quadrant 6.5 x 3.[address] scan abdomen/pelvis with contrast?revealed 6.2 by 5.2 by 2.5 cm fluid collection in the right hemipelvis adjacent to loops of small bowel. WBC upon admission was 21.4. Patient resting comfortably in bed during exam. She admits to mid chest pain and pain between her shoulder blades. She also states occasionally she will feel a twinge of pain on her right flank. She admits she is hungry and hopes to eat soon. Please see note forwarded from emergency department evaluation/admission H&P below. Forwarded from emergency department evaluation and admission H&P: She was at physical therapy yesterdayand began experiencing some chest pressure in the center of her chest and took a nitroglycerin.? Her chest pain persisted and she was sent to the ER. States that she has a history of recurrent chest pain.? States that she has congestive heart failure, diastolic, with preserved ejection fraction.? She takes nitroglycerin when she gets chest pain.? ? She says that she had a heart cath in November that was clean.? She sees Dr. Zhao. She also complained of right flank pain.? She had taken an Azo so her urine was discolored.? She says that she has a right-sided renal stone that is too large to do anything about.? She says that she last had an ultrasound done here in February, she was supposed to follow-up with urology, but our urologist here is leaving so she has not yet seen a urologist.? Denies fever or vomiting. States she had an allergic reaction, possibly to a new cholesterol medication, with a facial rash, seen in the emergency department in [place] on Saturday and received intravenous steroids.? She was subsequently called in a prescription for prednisone, but says she has not taken any oral prednisone. She was worked up in the ER and found to have a fluid collection in the right pelvis c/w with either seroma or abscess. The ER physician consulted with Dr. Naqvi and Dr. Recinos. She has been admitted with plan for possible surgery today after cardiology clearance. At the present time, she still c/o chest pain and flank pain but not as bad. Cardiac enzymes are normal x 3. PFSH PFSH Medical History Chest pain, atypical Dizziness Dyspnea Syncope Surgical History History of tubal ligation S/P hysterectomy S/P right oophorectomy Family History Other Alzheimer disease Bipolar 1 disorder Dementia Family history of diabetes mellitus type II Family history of myocardial infarction Lung cancer Lupus Social History Smoking Status: Never smoker second hand exposure: No alcohol intake: current substance use type: denies use current occupational status: unemployed and disabled Travel in the last 8 weeks: None household members: spouse housing: house current occupational exposures/hazards: No caffeine: Yes Review of Systems Review of Systems Review of systems:: pertinent systems reviewed and negative unless documented below
[2022-07-28 11:13] VITALS: BP 108/67; PULSE 51
--- NOTE | 2022-07-29 23:26 | EXP.DC.SUM ---
General Admission date:: 07/27/22 Discharge date: 07/28/22 HPI HPI HPI: She was at physical therapy yesterday and began experiencing some chest pressure in the center of her chest and took a nitroglycerin.? Her chest pain persisted and she was sent to the ER. States that she has a history of recurrent chest pain.? States that she has congestive heart failure, diastolic, with preserved ejection fraction.? She takes nitroglycerin when she gets chest pain.? ? She says that she had a heart cath in November that was normal.? She follows with Dr. Zhao. She also complained of right flank pain.? She had taken an Azo so her urine was discolored.? She says that she has a right-sided renal stone that is too large to do anything about.? She says that she last had an ultrasound done here in February, she was supposed to follow-up with urology, but our urologist here is leaving so she has not yet seen a urologist.? Denies fever or vomiting. States she had an allergic reaction, possibly to a new cholesterol medication, with a facial rash, seen in the emergency department in [place] on Saturday and received intravenous steroids.? She was subsequently called in a prescription for prednisone, but says she has not taken any oral prednisone. She was worked up in the ER and found to have a fluid collection in the right pelvis c/w with either seroma or abscess. The ER physician consulted with Dr. Naqvi and Dr. Recinos. She has been admitted with plan for possible surgery today after cardiology clearance. At the present time, she still c/o chest pain and flank pain but not as bad. Cardiac enzymes are normal x 3. Hospital Course Hospital Course Hospital Course: The patient's cardiac enzymes were negative x3. Her heart cath from 12/19 showed mild luminal irregularities with an elevated LVEDP. Her chest pain was somewhat atypical, and given her negative enzymes and relatively recent heart cath showing no significant coronary disease, her chest pain was more than likely musculoskeletal related to her history of rheumatoid arthritis and fibro-. Surgery and FISH HOUSEKEEPER were consulted. She was seen by Dr. Recinos and he felt it was difficult to ascertain if the postoperative fluid collection was a hematoma, seroma, or abscess hematoma/seroma. She was afebrile and her white blood cell count improved. He deferred management to [facility] DEALER. She was seen by Dr. Elizabeth who felt she did not have a surgical abdomen on exam. She recommended considering follow-up CT scan or ultrasound outpatient in 6 to 8 weeks to reevaluate cystic structure or sooner if clinically indicated. She felt the patient to follow-up with her PCP or with Dr. Jacobsen for this repeat imaging. She was stable to be discharged. Exam Data for Last 24 hours Vital signs and Labs for Last 24 Hours: Temp Pulse Resp BP Pulse Ox 97.8 F 51 L 15 108/67 L 97 07/28/22 07:37 07/28/22 11:13 07/28/22 07:37 07/28/22 11:13 07/28/22 08:00 I & O for Last 24 hours: Intake & Output 07/27/22 07/28/22 07/29/22 07/30/22 11:59 11:59 11:59 11:59 Intake Total 280 / 280 Output Total 0 / 0 Balance 280 / 280 Weight 253 lb 6.4 oz Microbiology Reports for the Last 24 Hours: Microbiology 07/27/22 17:22 Blood Blood Culture - Preliminary Narrative: Constitutional Constitutional: no acute distress *Routine HEENT Exam Head: Present normocephalic and atraumatic Eye: Present EOMI and PERRL; Absent conjunctival icterus ENT: Present mucous membranes moist and oropharynx clear *Routine Neck Exam Neck: Present supple; Absent carotid bruit, lymphadenopathy or thyromegaly *Routine Respiratory Exam Respiratory: Present CTA bilaterally *Routine Cardiovascular Exam Cardiovascular: Present RRR; Absent murmur *Routine Abdominal Exam Abdominal: Present soft, tenderness (RLQ) and obese; Absent distended *Routine Rectal Exam Rectal:: deferred *Routine Genitalia Exam Genitalia:: deferred *Routine Extremities Exam
--- NOTE | 2022-07-30 13:07 | CARE MANAGER ---
Spoke with patient for post-discharge phone interview.
== END 2022-07-28 11:53 | disposition home or self-care (01) ==
LOC: ER 16:07 → 2ND 19:13
PROVIDERS: Admitting Provider Family Medicine; Emergency Provider Emergency Medicine; Visit Provider Family Medicine
DX: R07.9 Chest pain, unspecified (principal); Z79.899 Other long term (current) drug therapy; Z20.822 Contact with and (suspected) exposure to COVID-19; I11.0 Hypertensive heart disease with heart failure; I50.32 Chronic diastolic (congestive) heart failure; E11.9 Type 2 diabetes mellitus without complications; Z79.84 Long term (current) use of oral hypoglycemic drugs
CPT/HCPCS: 36415; 71045; 74176; 74177; 76856; 80048; 81001; 82962; 83605; 84484; 85007; 85025; 87040; 87077; 87186; 93005; 94640; 99285; C9803; G0378; Q9967; U0003; U0005

== ENCOUNTER → 2022-08-17 16:50 | Outpatient (CLI) | payer OTHER, SELFPAY ==
[2022-08-17 19:07] LABS: Barbiturates Screen,Urine Negative ng/ml (<200)
[2022-08-17 19:08] LABS: Benzodiazepines Screen,Urine Negative ng/ml (<200)
[2022-08-17 19:09] LABS: Amphetamine/Metha Screen,Urine Negative ng/ml (<1000)
[2022-08-17 19:10] LABS: Cannabinoid Screen,Urine Negative ng/ml (<50)
[2022-08-17 19:11] LABS: Cocaine Screen,Urine Negative ng/ml (<300); Methadone Screen,Urine Negative ng/ml (<300)
[2022-08-17 19:12] LABS: Opiate Screen,Urine Negative ng/ml (<300)
[2022-08-17 19:13] LABS: Phencyclidine Screen,Urine Negative ng/ml (<25)
== END ==
PROVIDERS: PCP Internal Medicine; Visit Provider Internal Medicine
DX: R07.89 Other chest pain (principal)
CPT/HCPCS: 80305

== ENCOUNTER → 2022-08-22 10:18 | Outpatient (CLI) | payer OTHER, SELFPAY ==
--- NOTE | 2022-08-22 | CT_ITS ---
FINAL REPORT CLINICAL HISTORY: R FLANK PAIN, F/U , SEE PRIOR SCAN 07/27/2022 COMPARISON: 07/27/2022 FINDINGS: ABDOMEN: The lung bases are clear. The heart size is normal. Limited images of the liver are unremarkable. The patient is status post cholecystectomy. The pancreas is normal. The spleen is normal. No adrenal mass is identified. The aorta is normal in caliber. There is no significant free fluid or adenopathy. There are multiple bilateral nonobstructing stones, largest on the right measures 14 mm with a mean attenuation value of 1100 Hounsfield units. Largest stone on the left measures 12 mm. There is no hydronephrosis. PELVIS: The appendix is unremarkable. The patient is status post hysterectomy. No ureteral stones are identified. Again identified is a fluid collection in the right iliac fossa measuring 5.7 x 2.6 cm which is stable in size. Finding is nonspecific, may represent a cyst, lymphocele, or other fluid collection. The urinary bladder is unremarkable. There is no significant free fluid or adenopathy. IMPRESSION: Bilateral on obstructing renal stones, stable. Stable fluid collection in the right iliac fossa. Reviewed, Interpreted and Dictated by Clinton Argueta III, MD Transcribed by Terri Davis Authenticated and [facility]
== END ==
PROVIDERS: PCP Internal Medicine; Visit Provider Internal Medicine
DX: R10.9 Unspecified abdominal pain (principal)
CPT/HCPCS: 74176

== ENCOUNTER → 2022-10-24 14:27 | Outpatient (CLI) | payer OTHER, SELFPAY ==
--- NOTE | 2022-10-24 14:45 | ECG_ITS ---
APPROVED REPORT Exam: Resting ECG HR:55 bpm ECG Measurements Heart Rate 55 AXES [place] 166 P 18 QRSd 89 QRS 3 QT 426 T 13 QTc 416 Conclusion SINUS BRADYCARDIA LOW QRS VOLTAGE IN PRECORDIAL LEADS [QRS DEFLECTION < 1.0 mV IN CHEST LEADS] BORDERLINE ECG Electronically signed by : Juarez Griffin MD 10/24/2022 14:57:16
--- NOTE | 2022-10-24 14:50 | XR_ITS ---
FINAL REPORT CLINICAL HISTORY: CHEST PAIN COMPARISON: July 27, 2022 FINDINGS: TWO-VIEW CHEST Two views of the chest were obtained. There is cardiomegaly. The mediastinum is normal. No acute pulmonary abnormality is identified. There is no pneumothorax. The bony thorax is intact. IMPRESSION: No active cardiopulmonary disease. Reviewed, Interpreted and Dictated by Clinton Argueta III, MD Transcribed by Marielle Maloney Authenticated and [facility]
[2022-10-24 15:00] LABS: Basophils # 0.2 K/mm3 (0-0.2); Basophils % 0.7 % (0.1-2.0); Eosinophils # 0.1 K/mm3 (0.0-0.4); Eosinophils % 0.4 % (0.1-12.0); Hematocrit 49.7 % (37.0-47.0); Hemoglobin 15.7 g/dL (12.2-16.2); Lymphocytes # 3.1 K/mm3 (0.7-4.5); Lymphocytes % 15.2 % (10-50); Mean Corpuscular HGB Conc 31.6 g/dL (31.8-35.4); Mean Corpuscular Hemoglobin 28.2 pg (27.0-31.2); Mean Corpuscular Volume 89.1 fl (81-99); Mean Platelet Volume 8.1 fl (7.4-10.4); Monocytes # 0.8 K/mm3 (0.1-1.0); Monocytes % 3.8 % (1.7-9.3); Neutrophils # 16.6 K/mm3 (1.8-7.8); Platelet Count 458 K/mm3 (142-424); Red Blood Count 5.58 M/mm3 (4.20-5.40); Red Cell Distribution Width 14.4 % (11.5-17.5); White Blood Count 20.7 K/mm3 (4.8-10.8)
[2022-10-24 15:03] LABS: MANUAL DIFFERENTIAL MANUAL DIFFERENTIAL (MANUAL DIFF)
[2022-10-24 15:28] LABS: Troponin I < 0.01 ng/ml (0.00-0.034)
[2022-10-24 15:50] LABS: Lymphocytes % 16 % (10-50); Monocytes % 2 % (2-9); Neutrophils % 82 % (42-76); Platelet Estimate Slight Increase; RBC Morphology Normal; Total Cells Counted 100
== END ==
PROVIDERS: PCP Internal Medicine; Visit Provider Internal Medicine
DX: R07.9 Chest pain, unspecified (principal); I10 Essential (primary) hypertension
CPT/HCPCS: 36415; 71046; 84484; 85007; 85025; 93005

== ENCOUNTER → 2023-01-10 14:48 | Outpatient (CLI) | payer OTHER, SELFPAY | PROVIDERS: PCP Internal Medicine; Visit Provider Internal Medicine | DX: J44.9 Chronic obstructive pulmonary disease, unspecified (principal) | CPT/HCPCS: 94618 ==

== ENCOUNTER → 2023-02-11 09:47 | Outpatient (CLI) | payer OTHER, SELFPAY ==
[2023-02-11 10:32] LABS: Erythrocyte Sedimentation Rate 6 mm/hr (0-20)
[2023-02-11 10:41] LABS: Chloride 95 mmol/L (98-107); Potassium 4.2 mmoL/L (3.5-5.1); Sodium 135 mmol/L (136-145)
[2023-02-11 10:44] LABS: Anion Gap 13.2 mEq/L (5-15); Blood Urea Nitrogen 15 mg/dl (7-17); Calcium 9.3 mg/dl (8.4-10.2); Carbon Dioxide 31 mmol/L (22.0-30.0); Cholesterol 162 mg/dl (140-200); Estimated Glomerular Filt Rate 44 ml/min (>60); GFR (African American) 53 ML/MIN (>60); Glucose 110 mg/dl (74-100); HDL Cholesterol 27 mg/dl (40-60)
[2023-02-11 10:47] LABS: Triglycerides 438 mg/dl (30-150)
[2023-02-11 10:51] LABS: C-Reactive Protein 5.5 mg/L (0-4)
[2023-02-11 10:55] LABS: Direct LDL Cholesterol 87.35 mg/dL (100-129)
== END ==
PROVIDERS: PCP Internal Medicine; Visit Provider Emergency Medicine
DX: R07.2 Precordial pain (principal); E78.00 Pure hypercholesterolemia, unspecified
CPT/HCPCS: 36415; 80048; 80061; 85651; 86140

== ENCOUNTER → 2023-02-20 13:29 | Outpatient (CLI) | payer OTHER, SELFPAY ==
[2023-02-20 14:57] LABS: Erythrocyte Sedimentation Rate 17 mm/hr (0-20)
[2023-02-20 15:59] LABS: Anion Gap 14.2 mEq/L (5-15); Blood Urea Nitrogen 10 mg/dl (7-17); Calcium 8.8 mg/dl (8.4-10.2); Carbon Dioxide 33 mmol/L (22.0-30.0); Chloride 93 mmol/L (98-107); Chol/HDL Ratio 6.2 (1-3.5); Cholesterol 167 mg/dl (140-200); Estimated Glomerular Filt Rate 76 ml/min (>60); GFR (African American) 92 ML/MIN (>60); Glucose 90 mg/dl (74-100); HDL Cholesterol 27 mg/dl (40-60); Potassium 4.2 mmoL/L (3.5-5.1); Sodium 136 mmol/L (136-145); Triglycerides 374 mg/dl (30-150); VLDL Cholesterol 75 mg/dL (0-40)
[2023-02-20 16:06] LABS: C-Reactive Protein 14.6 mg/L (0-4)
[2023-02-20 16:12] LABS: Direct LDL Cholesterol 96.86 mg/dL (100-129)
[2023-02-20 17:34] LABS: Hemoglobin A1C 5.7 % (4.0-6.0)
== END ==
PROVIDERS: PCP Internal Medicine; Visit Provider Emergency Medicine
DX: I30.0 Acute nonspecific idiopathic pericarditis (principal); M79.89 Other specified soft tissue disorders; E78.1 Pure hyperglyceridemia
CPT/HCPCS: 36415; 80048; 80061; 83036; 85651; 86140

== ENCOUNTER → 2023-02-20 16:47 | Outpatient (CLI) | payer OTHER, SELFPAY ==
[2023-02-20 20:01] LABS: Amphetamine/Metha Screen,Urine Negative ng/ml (<1000); Barbiturates Screen,Urine Negative ng/ml (<200)
[2023-02-20 20:02] LABS: Benzodiazepines Screen,Urine Negative ng/ml (<200); Cannabinoid Screen,Urine Negative ng/ml (<50)
[2023-02-20 20:03] LABS: Cocaine Screen,Urine Negative ng/ml (<300)
[2023-02-20 20:04] LABS: Methadone Screen,Urine Negative ng/ml (<300); Opiate Screen,Urine Negative ng/ml (<300)
[2023-02-20 20:05] LABS: Phencyclidine Screen,Urine Negative ng/ml (<25)
== END ==
PROVIDERS: PCP Internal Medicine; Visit Provider Internal Medicine
DX: G89.29 Other chronic pain (principal)
CPT/HCPCS: 80305

== ENCOUNTER → 2023-03-01 13:21 | Outpatient (CLI) | payer OTHER, SELFPAY ==
--- NOTE | 2023-03-01 13:27 | CT_ITS ---
FINAL REPORT TECHNIQUE: Axial images through the abdomen and pelvis were performed without contrast. This study was performed with techniques to keep radiation doses as low as reasonably achievable, (ALARA). Individualized dose reduction techniques using automated exposure control or adjustment of mA and/or kV according to the patient's size were employed. CLINICAL HISTORY: rt flank pain COMPARISON: 08/22/2022 FINDINGS: ABDOMEN: The lung bases are clear. The heart size is normal. There is mild hepatomegaly and fatty infiltration. The liver measures 20 cm. The gallbladder is absent. The spleen is normal. The pancreas is normal. No adrenal mass is identified. The aorta is normal in caliber. There is no significant free fluid or adenopathy. There is a nonobstructing right kidney stone measuring 1.5 cm. There are stable nonobstructing left renal stones measuring up to 1.3 cm. There is a fluid collection in the right iliac fossa measuring 7.4 x 5.4 cm which has increased in size, may represent a lymphocele. PELVIS: The appendix is normal. The uterus is not identified. There is a small left ovarian cyst measuring 2.0 cm. The right ovary is not identified. The urinary bladder is unremarkable. There is no significant free fluid or adenopathy. IMPRESSION: Bilateral nephrolithiasis, stable from previous. Fluid collection in the right iliac fossa has increased in size, may represent a lymphocele. Since the right ovary is not identified, the possibility of an ovarian cyst is not excluded. Gynecologic evaluation is recommended. If the focus is ovarian in nature, it is a concern based on size. Reviewed, Interpreted and Dictated by James Bell MD Transcribed by Terri Davis Authenticated and . [facility]
== END ==
PROVIDERS: PCP Internal Medicine; Visit Provider Internal Medicine
DX: R10.9 Unspecified abdominal pain (principal)
CPT/HCPCS: 74176

== ENCOUNTER → 2023-07-09 10:10 | Outpatient (CLI) | payer OTHER, SELFPAY ==
--- NOTE | 2023-07-09 10:14 | XR_ITS ---
FINAL REPORT CLINICAL HISTORY: ASTHMA, hemoptysis COMPARISON: 10/24/2022 FINDINGS: Two views of the chest were obtained. The heart size and pulmonary vascularity are within normal limits. The mediastinum is normal. No acute pulmonary abnormality is identified. There is no pneumothorax. The bony thorax is intact. A loop recorder is noted overlying the left hemithorax. IMPRESSION: No active cardiopulmonary disease. Reviewed, Interpreted and Dictated by Clinton Argueta III, MD Transcribed by Evon Sandra Authenticated and [facility]
== END ==
PROVIDERS: PCP Internal Medicine; Visit Provider Internal Medicine
DX: J45.901 Unspecified asthma with (acute) exacerbation (principal)
CPT/HCPCS: 71046

== ENCOUNTER 2023-10-29 16:50 | Outpatient (CLI) | payer OTHER, SELFPAY | END 2023-10-29 23:59 | PROVIDERS: PCP Internal Medicine; Visit Provider Internal Medicine | DX: R07.89 Other chest pain (principal) ==

== ENCOUNTER 2023-11-01 17:02 | Outpatient (CLI) | payer OTHER, SELFPAY ==
[2023-11-01 18:05] LABS: Amphetamine/Metha Screen,Urine Negative ng/ml (<1000); Barbiturates Screen,Urine Negative ng/ml (<200); Benzodiazepines Screen,Urine Negative ng/ml (<200); Cannabinoid Screen,Urine Negative ng/ml (<50); Cocaine Screen,Urine Negative ng/ml (<300); Methadone Screen,Urine Negative ng/ml (<300); Opiate Screen,Urine Negative ng/ml (<300); Phencyclidine Screen,Urine Negative ng/ml (<25)
== END 2023-11-01 23:59 ==
LOC: LAB.DROPOF 17:03
PROVIDERS: PCP Internal Medicine; Visit Provider Internal Medicine
DX: Z79.899 Other long term (current) drug therapy (principal)
CPT/HCPCS: 80307

== ENCOUNTER 2023-12-26 20:42 | Emergency (ER) | payer OTHER, SELFPAY ==
[2023-12-26] VITALS (7 sets, daily range): BP systolic 133–154; BP diastolic 63–77; PULSE 55–63; RESP 18–20; TEMP 36.8; O2SAT 92–98; BMI 50.5
[2023-12-26 21:18] LABS: Microscopic, Urine URINE MICROSCOPIC (MICROSCOPIC)
[2023-12-26 21:19] LABS: Basophils # 0.2 K/mm3 (0-0.2); Basophils % 1.2 % (0.1-2.0); Eosinophils # 0.2 K/mm3 (0.0-0.4); Eosinophils % 1.2 % (0.1-12.0); Hematocrit 48.8 % (37.0-47.0); Hemoglobin 15.8 g/dL (12.2-16.2); Lymphocytes # 2.8 K/mm3 (0.7-4.5); Lymphocytes % 18.8 % (10-50); Mean Corpuscular HGB Conc 32.4 g/dL (31.8-35.4); Mean Corpuscular Hemoglobin 28.8 pg (27.0-31.2); Mean Corpuscular Volume 88.8 fl (81-99); Monocytes # 0.5 K/mm3 (0.1-1.0); Monocytes % 3.6 % (1.7-9.3); Neutrophils # 11.3 K/mm3 (1.8-7.8); Neutrophils % 75.3 % (37.0-80.0); Platelet Count 377 K/mm3 (142-424); Red Blood Count 5.49 M/mm3 (4.20-5.40); Red Cell Distribution Width 14.5 % (11.5-17.5)
--- NOTE | 2023-12-26 21:27 | CT_ITS ---
PROCEDURE INFORMATION: Exam: CT Abdomen And Pelvis Without Contrast Exam date and time: 12/26/2023 9:39 PM Age: 48 years old Clinical indication: Abdominal pain; Flank; Left; Additional info: L flank pain, h/o stones TECHNIQUE: Imaging protocol: Computed tomography of the abdomen and pelvis without contrast. Radiation optimization: All CT scans at this facility use at least one of these dose optimization techniques: automated exposure control; mA and/or kV adjustment per patient size (includes targeted exams where dose is matched to clinical indication); or iterative reconstruction. COMPARISON: CT ABDOMEN PELVIS WO CON 03/01/2023 1:28 PM FINDINGS: Lungs: Click bibasilar atelectasis Liver: There is diffuse hypoattenuation of the liver compatible with mild hepatic steatosis. Gallbladder and bile ducts: There are surgical clips within the gallbladder fossa. Pancreas: Normal. No ductal dilation. Spleen: Normal. No splenomegaly. Adrenal glands: Normal. No mass. Kidneys and ureters: Right renal pelvis 2.3 cm nephrolith , changed in position from prior CT dated 03/01/2023 resulting in mild right hydronephrosis. Left proximal ureteral calcific density compatible with ureterolith is related to mild left hydronephrosis and hydroureter and measures up to 5 mm. Nonobstructive left nephroliths define by multiple left renal calcific densities the largest measuring up to 14 mm. Stomach and bowel: Unremarkable. No obstruction. No mucosal thickening. Appendix: No evidence of appendicitis. Intraperitoneal space: Unremarkable. No free air. No significant fluid collection. Vasculature: Unremarkable. No abdominal aortic aneurysm. Lymph nodes: Unremarkable. No enlarged lymph nodes. Urinary bladder: Unremarkable as visualized. Reproductive: Unremarkable as visualized. Bones/joints: Unremarkable. No acute fracture. Soft tissues: Normal. IMPRESSION: 1. Right renal pelvis 2.3 cm nephrolith, changed in position from prior CT dated 03/01/2023 resulting in mild right hydronephrosis. 2. Mild left hydronephrosis and hydroureter related to left proximal ureterolith as described above.
[2023-12-26 21:29] LABS: Appearance,Urine SL CLOUDY (Clear); Bilirubin,Urine Negative (Negative); Blood, Urine 2+ (Negative); Color,Urine YELLOW (Yellow); Glucose,Urine (UA) 2+ (Negative); Ketones,Urine Negative (Negative); Leukocyte Esterase,Urine 2+ (Negative); Nitrate,Urine Negative (Negative); Protein,Urine 1+ (Negative); Urobilinogen,Urine 0.2 EU/dl (0.2)
[2023-12-26 21:30] LABS: Alanine Aminotransferase 56 U/L (12-78); Albumin Level 4.3 g/dl (3.5-5.0); Albumin/Globulin Ratio 1.4 (1.1-1.8); Alkaline Phosphatase 94 U/L (38-126); Anion Gap 10.6 mEq/L (5-15); Aspartate Amino Transferase 49 U/L (14-36); Bilirubin,Total 0.4 mg/dl (0.2-1.3); Blood Urea Nitrogen 14 mg/dl (7-17); Calcium 9.9 mg/dl (8.4-10.2); Carbon Dioxide 28 mmol/L (22.0-30.0); Chloride 104 mmol/L (98-107); Creatinine Clearance Estimated 70 mL/min (50-200); Estimated Glomerular Filt Rate 76 ml/min (>60); GFR (African American) 92 ML/MIN (>60); Globulin 3.1 g/dL (1.3-3.2); Glucose 179 mg/dl (74-100); Potassium 3.6 mmoL/L (3.5-5.1); Sodium 139 mmol/L (136-145); Total Protein,Serum 7.4 g/dl (6.3-8.2)
[2023-12-26 21:41] LABS: Bacteria,Urine Trace /lpf; Squamous Epithelial Cell,Urine Occasional #/hpf (0-5); WBC,Urine TNTC #/hpf (0-3)
[2023-12-26 21:42] LABS: MANUAL DIFFERENTIAL MANUAL DIFFERENTIAL (MANUAL DIFF)
[2023-12-26] MEDS: KETOROLAC 30MG/ML VIAL 15 MG IV (21:44)
[2023-12-26] MEDS: ONDANSETRON 4MG/2ML VIAL 4 MG IV (21:44)
[2023-12-26] MEDS: ACETAMINOPHEN 1,000MG/100ML VIAL 1000 MG IV (21:45)
[2023-12-26] MEDS: LACTATED RINGERS 1000ML 1,000 ML 999 ML IV (21:45)
[2023-12-26 22:01] LABS: Hypochromasia 2+; Lymphocytes % 15 % (10-50); Monocytes % 3 % (2-9); Neutrophils % 82 % (42-76); Platelet Estimate Normal; Total Cells Counted 100
--- NOTE | 2023-12-26 23:06 | PC.NURSE ---
PC TO ANDREW @ [facility] THEY WILL HAVE UROLOGY PAGED AND HAVE A RETURN CALL
--- NOTE | 2023-12-26 23:08 | HMH.EDGENADL ---
Discharge Plan Disposition Patient Disposition: Xfer Short-Term Hosp Condition: Good Prescriptions Prescriptions: No Action tizanidine [Zanaflex] 4 mg capsule 4 mg PO TIDP PRN (Reason: Muscle Spasm) spironolactone [Aldactone] 50 mg tablet 50 mg PO DAILY bumetanide 2 mg tablet 2 mg PO DAILY Entresto 24-26 mg tablet 1 tab PO BID pravastatin 10 mg tablet 10 mg PO DAILY Patient Comments: TAKE ONE TABLET BY MOUTH EVERY DAY AT BEDTIME Ozempic 0.25 mg or 0.5 mg (2 mg/3 mL) pen injector 0.5 mg SQ WEEKLY Patient Comments: INJECT 0.25 MG SUBCUTANEOUSLY into THE appropriate AREA DIRECTED 1 time PER WEEK albuterol sulfate [ProAir HFA] 90 mcg/actuation HFA aerosol inhaler 2 puff IH Q4HP PRN (Reason: Shortness Of Breath) promethazine 25 mg tablet 12.5 mg PO Q4HP PRN (Reason: Nausea) omeprazole 20 mg capsule,delayed release(DR/EC) 20 mg PO DAILY Farxiga 10 mg tablet See Rx Instructions .ROUTE .COMPLEX Qty: 90 1RF Dose Instruction: TAKE ONE TABLET BY MOUTH EVERY DAY Rx Instructions: TAKE ONE TABLET BY MOUTH EVERY DAY metformin 1,000 MG tablet 500 mg PO BIDWMEAL nebivolol 5 MG tablet 5 mg PO DAILY tramadol 50 MG tablet 50 - 100 mg PO Q6HP PRN (Reason: Moderate Pain) fluticasone propion-salmeterol 28 PUFFS/50 MCG inhaler 1 puff IH BID ibuprofen 800 MG tablet 800 mg PO TIDP PRN (Reason: Mild Pain,Fever,Headache) acetaminophen 325 MG tablet 650 mg PO Q4HP PRN (Reason: Mild Pain) 0RF Referrals Follow up/Referrals: Juarez Griffin MD [Primary Care Provider] - See instructions Clinical Impressions Clinical Impression: Ureterolithiasis, UTI (urinary tract infection) Stand Alone Forms Stand Alone Forms: Transfer Record - ED Instructions Patient Instructions: DI for Urinary Tract Infection (UTI), DI for Urinary Tract Infection in Children Discharge ED Provider: Moriah Singh General Adult HPI <Moriah Sinhg DO - Last Filed: 12/27/23 00:19> General Chief complaint: Urogenital-Female Stated complaint: pain in her back and abdomen , vomiting Time Seen by Provider: 12/26/23 21:00 Mode of Arrival: Wheelchair Source of Information: Patient and Spouse Limitations: No Limitations Description of Symptoms (Recalled from ER Triage Doc. by RN): Left flank pain n/v with hx of kidney stone. History of Present Illness HPI narrative: This patient is a 48-year-old female with a history of ureterolithiasis presenting to the emergency department for evaluation with concern for severe left flank pain that started today. States that it started several hours prior to arrival. She also had intractable nausea and vomiting. She complains of chills, but has not taken her temperature. No other concerns noted. She was well prior to this. She notes that it does feel similar to prior kidney stones. Related Data Home Medications Medication Instructions Recorded Confirmed tizanidine 4 mg capsule (Zanaflex) 4 mg PO TIDP PRN Muscle Spasm 02/22/20 12/26/23 metformin 1,000 mg tablet 500 mg PO BIDWMEAL Diabetes 12/21/21 12/26/23 nebivolol 5 mg tablet 5 mg PO DAILY Hypertension 12/21/21 12/26/23 tramadol 50 mg tablet 50 - 100 mg PO Q6HP PRN Moderate 12/22/21 12/26/23 Pain albuterol sulfate 90 mcg/actuation 2 puff inhalation Q4HP PRN 12/28/21 12/26/23 aerosol inhaler (ProAir HFA) Shortness Of Breath promethazine 25 mg tablet 12.5 mg PO Q4HP PRN Nausea 03/30/22 12/26/23 spironolactone 50 mg tablet 50 mg PO DAILY Fluid 03/30/22 12/26/23 (Aldactone) omeprazole 20 mg capsule,delayed 20 mg PO DAILY GERD 04/24/22 12/26/23 release fluticasone 250 mcg-salmeterol 50 1 puff inhalation BID COPD 04/27/22 12/26/23 mcg/dose blistr powdr for inhalation ibuprofen 800 mg tablet 800 mg PO TIDP PRN Mild 05/01/22 12/26/23 Pain,Fever,Headache bumetanide 2 mg tablet 2 mg PO DAILY 03/04/23 12/26/23 pravastatin 10 mg tablet 10 mg PO DAILY 03/04/23 12/26/23 sacubitril 24 mg-valsartan 26 mg 1 tab PO BID 03/04/23 12/26/23 tablet (Entresto) semaglutide 0.25 mg or 0.5 mg (2 0.5 mg SQ WEEKLY 03/04/23 12/26/23 mg/3 mL) subcutaneous pen injector (Ozempic) Previous Rx's Medication Instructions Recorded acetaminophen 325 mg tablet 650 mg PO Q4HP PRN Mild Pain 05/04/22 dapagliflozin propanediol 10 mg See Rx Instructions .Route 01/14/23 tablet (Farxiga) .COMPLEX #90 tabs Allergies Allergy/AdvReac Type Severity Reaction Status Date / Time aspirin Allergy Severe S-DIFF. Verified 07/18/22 12:56 BREATHING bee venom protein (honey bee) Allergy Severe Anaphylaxis Verified 07/18/22 12:56 Bleach (Sodium Hypochlorite) Allergy Severe diff. Verified 07/18/22 12:56 breathing, dizzy pneumococcal vaccine Allergy Verified 07/18/22 12:56 sulfamethoxazole Allergy Verified 07/27/22 16:05 [From Bactrim] trimethoprim [From Bactrim] Allergy Verified 07/27/22 16:05 sucralose AdvReac Severe breathing Verified 07/18/22 12:56 [From SUCRALOSE (FOOD/DRUG)] problems PFSH <Moriah Singh DO - Last Filed: 12/27/23 00:19> [facility] Disclaimer: The information contained in this section may have been updated after the patient was seen, as this information can be updated by other users. Medical History Adnexal mass Altered mental status Asthma with exacerbation Cellulitis of right wrist Pneumonia Right flank pain Septic shock Severe sepsis with acute organ dysfunction Syncope Surgical History History of tubal ligation S/P hysterectomy S/P right oophorectomy Family History Other Alzheimer disease Bipolar 1 disorder Dementia Family history of diabetes mellitus type II Family history of myocardial infarction Lung cancer Lupus Social History Smoking Status: Never smoker second hand exposure: No alcohol intake: current substance use type: denies use current occupational status: unemployed and disabled Travel in the last 8 weeks: None household members: spouse housing: house current occupational exposures/hazards: No caffeine: Yes <Moriah Singh DO - Last Filed: 12/27/23 00:19> ROS Obtained: Yes All systems reviewed & no additional complaints except as documented Physical Exam <Moriah Singh DO - Last Filed: 12/27/23 00:19> General General appearance: alert, in no apparent distress and obese Comment: uncomfortable appearing Head Head exam: atraumatic and normocephalic Eye Eye exam: Present normal appearance, PERRL and EOMI ENT ENT exam: Present normal exam, normal oropharynx, mucous membranes moist and normal external ear exam Neck Neck exam: Present normal inspection, full ROM and trachea midline; Absent tenderness Chest Chest inspection: Present normal inspection and symmetric chest wall rise; Absent tenderness Respiratory Respiratory exam: Present normal lung sounds bilaterally; Absent respiratory distress, wheezes, stridor or accessory muscle use Cardiovascular Cardiovascular exam: Present regular rate and normal rhythm Abdominal Exam Abdominal exam: Present soft; Absent distention, tenderness or guarding Extremities Exam Extremities exam: Present normal inspection, full ROM and normal capillary refill; Absent tenderness or edema Back Exam Back exam: Present full ROM and CVA tenderness (L) Neurological Exam Neurological exam: Present alert, oriented X3, CN II-XII intact and normal gait; Absent motor sensory deficit Psychiatric Psychiatric exam: Present normal affect and normal mood Skin Skin exam: Present warm and dry Medical Decision Making <Moriah Singh DO - Last Filed: 12/27/23 00:19> Medical Records Medical records reviewed: Yes I reviewed the patient's medical records. Harjinder Inquiry Pt receiving controlled substance: No Vital Signs: 12/26/23 21:12 12/26/23 21:06 12/26/23 21:45 Temperature 98.3 F Temperature Source Oral Pulse Rate 60 58 L Pulse Rate [Radial] 60 Respiratory Rate 20 Blood Pressure 144/74 H 154/63 H Blood Pressure [Left Arm] 144/74 H Blood Pressure Mean 79 93 Blood Pressure Mean [Left Arm] 97 Blood Pressure Source [Left Arm] Automatic Cuff Blood Pressure Position [Left Arm] Supine 02 Sat by Pulse Oximetry 94 L 95 92 L Oxygen Delivery Method Room Air Room Air Oxygen Flow Rate (LPM) 12/26/23 22:01 12/26/23 22:31 12/26/23 23:00 Temperature Temperature Source Pulse Rate 55 L 55 L 57 L Pulse Rate [Radial] Respiratory Rate 18 Blood Pressure 143/77 H 133/68 139/75 Blood Pressure [Left Arm] Blood Pressure Mean 89 86 Blood Pressure Mean [Left Arm] Blood Pressure Source [Left Arm] Blood Pressure Position [Left Arm] 02 Sat by Pulse Oximetry 98 97 97 Oxygen Delivery Method Room Air Room Air Oxygen Flow Rate (LPM) 12/26/23 23:31 12/27/23 00:00 12/27/23 00:31 Temperature Temperature Source Pulse Rate 63 61 58 L Pulse Rate [Radial] Respiratory Rate Blood Pressure 134/71 130/68 122/70 Blood Pressure [Left Arm] Blood Pressure Mean 78 Blood Pressure Mean [Left Arm] Blood Pressure Source [Left Arm] Blood Pressure Position [Left Arm] 02 Sat by Pulse Oximetry 96 96 97 Oxygen Delivery Method Nasal Cannula Nasal Cannula Oxygen Flow Rate (LPM) 2 2 12/27/23 01:00 Temperature Temperature Source Pulse Rate 56 L Pulse Rate [Radial] Respiratory Rate 18 Blood Pressure 141/75 H Blood Pressure [Left Arm] Blood Pressure Mean Blood Pressure Mean [Left Arm] Blood Pressure Source [Left Arm] Blood Pressure Position [Left Arm] 02 Sat by Pulse Oximetry 96 Oxygen Delivery Method Nasal Cannula Oxygen Flow Rate (LPM) 2 Lab Data Lab results reviewed: Yes I reviewed the patient's lab results. Lab Results 12/26/23 21:03: Urine Color Yellow, Urine Appearance Sl cloudy, Urine pH 7.0, Ur Specific [place] 1.010, Urine Protein 1+, Urine Glucose (UA) 2+, Urine Ketones Negative, Urine Blood 2+, Urine Nitrate Negative, Urine Bilirubin Negative, Urine Urobilinogen 0.2, Ur Leukocyte Esterase 2+ A, Urine RBC 5-10, Urine WBC Tntc, Ur Squamous Epith Cells Occasional, Urine Bacteria Trace 12/26/23 21:10: WBC 15.0 H, RBC 5.49 H, Hgb 15.8, Hct 48.8 H, MCV 88.8, MCH 28.8, MCHC 32.4, RDW 14.5, Plt Count 377, MPV 8.0, Neut % (Auto) 75.3, Lymph % (Auto) 18.8, [place] % (Auto) 3.6, Eos % (Auto) 1.2, Baso % (Auto) 1.2, Neut # (Auto) 11.3 H, Lymph # (Auto) 2.8, [place] # (Auto) 0.5, Eos # (Auto) 0.2, Baso # (Auto) 0.2, Total Counted 100, Neutrophils % (Manual) 82 H, Lymphocytes % (Manual) 15, Monocytes % (Manual) 3, Platelet Estimate Normal, Hypochromasia 2+, Sodium 139, Potassium 3.6, Chloride 104, Carbon Dioxide 28, Anion Gap 10.6, BUN 14, Creatinine 0.80, Estimated Creat Clear 70, Estimated GFR 76, Est GFR ( Amer) 92, Glucose 179 H, Calcium 9.9, Total Bilirubin 0.4, AST 49 H, ALT 56, Alkaline Phosphatase 94, Troponin I < 0.01, Total Protein 7.4, Albumin 4.3, Globulin 3.1, Albumin/Globulin Ratio 1.4 12/27/23 00:30: Troponin I < 0.01 12/26/23 21:10 12/26/23 21:10 Orders (Tests/Meds): ED MEDICATIONS Discontinued Medications Generic Name Dose Route Start Last Admin Trade Name Freq PRN Reason Stop Dose Admin Acetaminophen 1,000 mg 12/26/23 21:27 12/26/23 21:45 Acetaminophen 1,000mg/100ml Vial IV 12/26/23 21:28 1,000 mg ONCE ONE Administration Lactated Ringer's 1,000 mls @ 999 mls/hr 12/26/23 21:27 12/26/23 21:45 Lactated Ringer's 1000 Ml Bag IV 12/26/23 22:27 999 mls/hr .Q1H1M ONE Administration Ceftriaxone Sodium 2 gm/ 100 mls @ 200 mls/hr 12/26/23 23:04 12/26/23 23:13 Sodium Chloride IV 12/26/23 23:33 200 mls/hr ONCE ONE Administration Ketorolac Tromethamine 15 mg 12/26/23 21:27 12/26/23 21:44 Ketorolac 30mg/Ml Vial IV 12/26/23 21:28 15 mg ONCE ONE Administration Morphine Sulfate 4 mg 12/26/23 23:16 12/26/23 23:20 Morphine 4mg/Ml Syringe IV 12/26/23 23:17 4 mg ONCE ONE Administration Ondansetron HCl 4 mg 12/26/23 21:27 12/26/23 21:44 Ondansetron 4mg/2ml Vial IV 12/26/23 21:28 4 mg ONCE ONE Administration Promethazine HCl 12.5 mg 12/26/23 23:52 12/27/23 00:19 Promethazine Hcl 25mg/Ml 1ml Vial IV 12/26/23 23:53 12.5 mg ONCE ONE Administration Sodium Chloride 25 ml 12/26/23 23:52 12/27/23 00:18 Sodium Chloride 0.9% 25ml Bag IV 12/26/23 23:53 25 ml ONCE ONE Administration ORDERS Category Date Time Status CT abdomen pelvis wo con Stat Cat Scan 12/26/23 21:27 Completed Complete Blood Count Auto Diff Stat Lab 12/26/23 21:10 Completed Comprehensive Metabolic Panel Stat Lab 12/26/23 21:10 Completed Troponin I Q3H Lab 12/27/23 00:30 Completed Troponin I Q3H Lab 12/27/23 03:30 Ordered Troponin I Stat Lab 12/27/23 00:16 Completed Urinalysis and Microscopic Stat Lab 12/26/23 21:03 Completed Blood Culture Stat Micro 12/26/23 23:04 Ordered Urine Culture Stat Micro 12/26/23 21:03 Received ECG initial [place] Routine Y 12/27/23 00:12 Completed ECG Data Tracing #1: I reviewed this ECG and interpreted as documented below: Sinus bradycardia with a ventricular rate of 57 bpm. No changes from prior EKG. Nonspecific ST/T wave changes. ECG initial impression date: 12/27/23 ECG initial impression time: 00:12 Medical Decision Narrative: In summary, this patient is a 48-year-old female presenting to the Emergency Department for evaluation of severe left flank pain. Differential diagnoses considered include but are not limited to ureterolithiasis, pyelonephritis, cystitis, colitis, bowel obstruction. Ruling out the most morbid conditions drove assessment. On exam, patient is very uncomfortable appearing. She has left CVA tenderness. Workup included CBC, CMP, urinalysis, and CT abdomen pelvis without IV contrast. She is given a bolus of IV fluids as well as IV Toradol, Tylenol, and Zofran. I independently interpreted the scan prior to the radiologist read and noted left hydronephrosis secondary to what appears to be a left ureteral calcification. It is very small. Please see their read for final interpretation. Labs were obtained that demonstrated leukocytosis to 15 with neutrophilic shift as well as hematuria and leukocyturia. Urinalysis is negative for nitrates. Urine culture and blood cultures were sent and are pending. On reassessment, patient had good improvement after administration of as above. Given her leukocytosis, leukocyturia, and a proximal stone with severe symptoms, I am concerned she could potentially have an infected stone. Given this, she was given IV Rocephin. urology consultation was initiated at 2300 with [facility]. They advised they are unable to accept. Given this, initiated discussion with [facility]. I had an interactive discussion with Dr. Sims with Urology who advised he would recommend transfer there for monitoring just in case the patient to potentially have an infected stone. Given this, I had an interactive discussion with the hospitalist, Dr. Leon, who advised they would be happy to accept the patient for transfer. Given this, transfer by EMS was initiated. We are awaiting bed assignment at this time. On reassessment, the patient is resting more comfortably with reassuring vital signs on cardiac telemetry. She states that she is feeling better, but she feels funny across her chest. She is not having true pain, but she states that she is just feeling unwell. Given this, EKG was obtained. Patient has sinus bradycardia with a ventricular rate of 57 bpm. She has nonspecific ST/T wave changes, however these are unchanged from prior EKG from 10/24/2022. Does not meet STEMI criteria, but to be on safe side, troponin was added. Patient care signed out to the oncoming provider, Dr. Ivy, pending safe transport. <Taiwo Ivy MD - Last Filed: 12/27/23 01:15> Vital Signs: 12/26/23 21:12 12/26/23 21:06 12/26/23 21:45 Temperature 98.3 F Temperature Source Oral Pulse Rate 60 58 L Pulse Rate [Radial] 60 Respiratory Rate 20 Blood Pressure 144/74 H 154/63 H Blood Pressure [Left Arm] 144/74 H Blood Pressure Mean 79 93 Blood Pressure Mean [Left Arm] 97 Blood Pressure Source [Left Arm] Automatic Cuff Blood Pressure Position [Left Arm] Supine 02 Sat by Pulse Oximetry 94 L 95 92 L Oxygen Delivery Method Room Air Room Air Oxygen Flow Rate (LPM) 02/29/24 22:01 12/26/23 22:31 12/26/23 23:00 Temperature Temperature Source Pulse Rate 55 L 55 L 57 L Pulse Rate [Radial] Respiratory Rate 18 Blood Pressure 143/77 H 133/68 139/75 Blood Pressure [Left Arm] Blood Pressure Mean 89 86 Blood Pressure Mean [Left Arm] Blood Pressure Source [Left Arm] Blood Pressure Position [Left Arm] 02 Sat by Pulse Oximetry 98 97 97 Oxygen Delivery Method Room Air Room Air Oxygen Flow Rate (LPM) 12/26/23 23:31 12/27/23 00:00 12/27/23 00:31 Temperature Temperature Source Pulse Rate 63 61 58 L Pulse Rate [Radial] Respiratory Rate Blood Pressure 134/71 130/68 122/70 Blood Pressure [Left Arm] Blood Pressure Mean 78 Blood Pressure Mean [Left Arm] Blood Pressure Source [Left Arm] Blood Pressure Position [Left Arm] 02 Sat by Pulse Oximetry 96 96 97 Oxygen Delivery Method Nasal Cannula Nasal Cannula Oxygen Flow Rate (LPM) 2 2 12/27/23 01:00 Temperature Temperature Source Pulse Rate 56 L Pulse Rate [Radial] Respiratory Rate 18 Blood Pressure 141/75 H Blood Pressure [Left Arm] Blood Pressure Mean Blood Pressure Mean [Left Arm] Blood Pressure Source [Left Arm] Blood Pressure Position [Left Arm] 02 Sat by Pulse Oximetry 96 Oxygen Delivery Method Nasal Cannula Oxygen Flow Rate (LPM) 2 Lab Data Lab Results 12/26/23 21:03: Urine Color Yellow, Urine Appearance Sl cloudy, Urine pH 7.0, Ur Specific [place] 1.010, Urine Protein 1+, Urine Glucose (UA) 2+, Urine Ketones Negative, Urine Blood 2+, Urine Nitrate Negative, Urine Bilirubin Negative, Urine Urobilinogen 0.2, Ur Leukocyte Esterase 2+ A, Urine RBC 5-10, Urine WBC Tntc, Ur Squamous Epith Cells Occasional, Urine Bacteria Trace 12/26/23 21:10: WBC 15.0 H, RBC 5.49 H, Hgb 15.8, Hct 48.8 H, MCV 88.8, MCH 28.8, MCHC 32.4, RDW 14.5, Plt Count 377, MPV 8.0, Neut % (Auto) 75.3, Lymph % (Auto) 18.8, [place] % (Auto) 3.6, Eos % (Auto) 1.2, Baso % (Auto) 1.2, Neut # (Auto) 11.3 H, Lymph # (Auto) 2.8, [place] # (Auto) 0.5, Eos # (Auto) 0.2, Baso # (Auto) 0.2, Total Counted 100, Neutrophils % (Manual) 82 H, Lymphocytes % (Manual) 15, Monocytes % (Manual) 3, Platelet Estimate Normal, Hypochromasia 2+, Sodium 139, Potassium 3.6, Chloride 104, Carbon Dioxide 28, Anion Gap 10.6, BUN 14, Creatinine 0.80, Estimated Creat Clear 70, Estimated GFR 76, Est GFR ( Amer) 92, Glucose 179 H, Calcium 9.9, Total Bilirubin 0.4, AST 49 H, ALT 56, Alkaline Phosphatase 94, Troponin I < 0.01, Total Protein 7.4, Albumin 4.3, Globulin 3.1, Albumin/Globulin Ratio 1.4 12/27/23 00:30: Troponin I < 0.01 Orders (Tests/Meds): ED MEDICATIONS Discontinued Medications Generic Name Dose Route Start Last Admin Trade Name Freq PRN Reason Stop Dose Admin Acetaminophen 1,000 mg 12/26/23 21:27 12/26/23 21:45 Acetaminophen 1,000mg/100ml Vial IV 12/26/23 21:28 1,000 mg ONCE ONE Administration Lactated Ringer's 1,000 mls @ 999 mls/hr 12/26/23 21:27 12/26/23 21:45 Lactated Ringer's 1000 Ml Bag IV 12/26/23 22:27 999 mls/hr .Q1H1M ONE Administration Ceftriaxone Sodium 2 gm/ 100 mls @ 200 mls/hr 12/26/23 23:04 12/26/23 23:13 Sodium Chloride IV 12/26/23 23:33 200 mls/hr ONCE ONE Administration Ketorolac Tromethamine 15 mg 12/26/23 21:27 12/26/23 21:44 Ketorolac 30mg/Ml Vial IV 12/26/23 21:28 15 mg ONCE ONE Administration Morphine Sulfate 4 mg 12/26/23 23:16 12/26/23 23:20 Morphine 4mg/Ml Syringe IV 12/26/23 23:17 4 mg ONCE ONE Administration Ondansetron HCl 4 mg 12/26/23 21:27 12/26/23 21:44 Ondansetron 4mg/2ml Vial IV 12/26/23 21:28 4 mg ONCE ONE Administration Promethazine HCl 12.5 mg 12/26/23 23:52 12/27/23 00:19 Promethazine Hcl 25mg/Ml 1ml Vial IV 12/26/23 23:53 12.5 mg ONCE ONE Administration Sodium Chloride 25 ml 12/26/23 23:52 12/27/23 00:18 Sodium Chloride 0.9% 25ml Bag IV 12/26/23 23:53 25 ml ONCE ONE Administration ORDERS Category Date Time Status CT abdomen pelvis wo con Stat Cat Scan 12/26/23 21:27 Completed Complete Blood Count Auto Diff Stat Lab 12/26/23 21:10 Completed Comprehensive Metabolic Panel Stat Lab 12/26/23 21:10 Completed Troponin I Q3H Lab 12/27/23 00:30 Completed Troponin I Q3H Lab 12/27/23 03:30 Ordered Troponin I Stat Lab 12/27/23 00:16 Completed Urinalysis and Microscopic Stat Lab 12/26/23 21:03 Completed Blood Culture Stat Micro 12/26/23 23:04 Ordered Urine Culture Stat Micro 12/26/23 21:03 Received ECG initial [place] Routine Y 12/27/23 00:12 Completed HEART Score History (anamnesis): Slightly suspicious ECG: Non-specific disturbance Age: 45-65 years Risk factors: 3 or more risk factors Troponin: </= normal limit HEART Score: 4 Medical Decision Narrative: In summary, this patient is a 48-year-old female presenting to the Emergency Department for evaluation of severe left flank pain. Differential diagnoses considered include but are not limited to ureterolithiasis, pyelonephritis, cystitis, colitis, bowel obstruction. Ruling out the most morbid conditions drove assessment. On exam, patient is very uncomfortable appearing. She has left CVA tenderness. Workup included CBC, CMP, urinalysis, and CT abdomen pelvis without IV contrast. She is given a bolus of IV fluids as well as IV Toradol, Tylenol, and Zofran. I independently interpreted the scan prior to the radiologist read and noted left hydronephrosis secondary to what appears to be a left ureteral calcification. It is very small. Please see their read for final interpretation. Labs were obtained that demonstrated leukocytosis to 15 with neutrophilic shift as well as hematuria and leukocyturia. Urinalysis is negative for nitrates. Urine culture and blood cultures were sent and are pending. On reassessment, patient had good improvement after administration of as above. Given her leukocytosis, leukocyturia, and a proximal stone with severe symptoms, I am concerned she could potentially have an infected stone. Given this, she was given IV Rocephin. urology consultation was initiated at 2300 with [facility]. They advised they are unable to accept. Given this, initiated discussion with [facility]. I had an interactive discussion with Dr. Sims with Urology who advised he would recommend transfer there for monitoring just in case the patient to potentially have an infected stone. Given this, I had an interactive discussion with the hospitalist, Dr. Leon, who advised they would be happy to accept the patient for transfer. Given this, transfer by EMS was initiated. We are awaiting bed assignment at this time. On reassessment, the patient is resting more comfortably with reassuring vital signs on cardiac telemetry. She states that she is feeling better, but she feels funny across her chest. She is not having true pain, but she states that she is just feeling unwell. Given this, EKG was obtained. Patient has sinus bradycardia with a ventricular rate of 57 bpm. She has nonspecific ST/T wave changes, however these are unchanged from prior EKG from 10/24/2022. Does not meet STEMI criteria, but to be on safe side, troponin was added. Patient care signed out to the oncoming provider, Dr. Ivy, pending safe transport. Upon my assumption of care patient is resting comfortably. I reviewed initial EKG and agree with primary provider's read. Troponin has not yet resulted but I performed a repeat ECG 1 hour after initial which demonstrates sinus bradycardia, rate 55, persistent nonspecific ST/T wave changes but there are no dynamic changes, the slight elevation in leads II and aVF are unchanged from earlier ECG and from ECG in September 2022. No STEMI. Initial troponin less than 0.01, further reassurance against acute cardiac syndrome. Repeat troponin also undetectably low, less than 0.01, no delta. Patient continued to remain stable and is appropriate for transport at this time. Critical Care <Moriah Singh, DO - Last Filed: 12/27/23 00:19> Critical Care Time Critical Care Time: No
[2023-12-26] MEDS: CEFTRIAXONE SODIUM 2 GM in 0.9 % SODIUM CHLORIDE 100 ML IV (23:13)
--- NOTE | 2023-12-26 23:17 | PC.NURSE ---
Shawna cheng sherman returned call and stated that they are 'at capacity and will have to decline'.
[2023-12-26] MEDS: MORPHINE 4MG/ML SYRINGE 4 MG IV (23:20)
--- NOTE | 2023-12-26 23:22 | PC.NURSE ---
On phone with Leisa @ [facility], they will call us back
--- NOTE | 2023-12-26 23:27 | PC.NURSE ---
Face sheet faxed to [facility] transfer [facility]
--- NOTE | 2023-12-26 23:30 | PC.NURSE ---
Dr. Mcgrath on phone with Dr. Singh
[2023-12-27] VITALS: BP 130/68; PULSE 61; O2SAT 96
--- NOTE | 2023-12-27 00:08 | PC.NURSE ---
disc requested from radiology
--- NOTE | 2023-12-27 00:10 | PC.NURSE ---
tried to call report, Roberto states that the nurse is at lunch and I need to call back in 20 minutes.
--- NOTE | 2023-12-27 00:12 | ECG_ITS ---
APPROVED REPORT Exam: Resting ECG HR:57 bpm ECG Measurements Heart Rate 57 AXES NE 154 P 35 QRSd 88 QRS 32 QT 433 T 52 QTc 427 Conclusion SINUS BRADYCARDIA LOW QRS VOLTAGE IN PRECORDIAL LEADS [QRS DEFLECTION < 1.0 mV IN CHEST LEADS] ST ELEVATION, Is an old finding UNCONFIRMED REPORT Electronically signed by : Ahsan Chew MD 12/27/2023 19:29:30
[2023-12-27] MEDS: SODIUM CHLORIDE 0.9% 25ML BAG 25 ML IV (00:18)
[2023-12-27] MEDS: PROMETHAZINE HCL 25MG/ML 1ML VIAL 12.5 MG IV (00:19)
[2023-12-27 00:31] VITALS: BP 122/70; PULSE 58; O2SAT 97
--- NOTE | 2023-12-27 00:31 | PC.NURSE ---
report called romero cummins
--- NOTE | 2023-12-27 00:32 | PC.NURSE ---
EMS notified that pt is ready
[2023-12-27 01:00] VITALS: BP 141/75; PULSE 56; RESP 18; O2SAT 96
--- NOTE | 2023-12-27 01:00 | ECG_ITS ---
APPROVED REPORT Exam: Resting ECG HR:55 bpm ECG Measurements Heart Rate 55 AXES MT 156 P 42 QRSd 88 QRS 29 QT 437 T 50 QTc 425 Conclusion SINUS BRADYCARDIA WITH SINUS ARRHYTHMIA LOW QRS VOLTAGE IN PRECORDIAL LEADS [QRS DEFLECTION < 1.0 mV IN CHEST LEADS] ST ELEVATION, CONSIDER INFERIOR INJURY [MARKED ST ELEVATION W/O NORMALLY INFLECTED T-WAVE IN II/aVF] Elevation in lead II and aVF similar to September 2022, no STEMI, no dynamic change from previous ECG Electronically signed by : DELTA MOORE, 12/27/2023 02:08:46
[2023-12-27 01:06] LABS: Troponin I < 0.01 ng/ml (0.00-0.034)
[2023-12-27 01:10] LABS: Troponin I < 0.01 ng/ml (0.00-0.034)
[2023-12-27 01:14] VITALS: BP 141/75; PULSE 55; RESP 18; TEMP 36.6; O2SAT 97
== END 2023-12-27 01:16 | disposition short-term general hospital (02) ==
PROVIDERS: Emergency Provider Emergency Medicine; PCP Internal Medicine
DX: R10.9 Unspecified abdominal pain (principal); R11.2 Nausea with vomiting, unspecified; N20.1 Calculus of ureter; N39.0 Urinary tract infection, site not specified; R00.1 Bradycardia, unspecified; J45.909 Unspecified asthma, uncomplicated
CPT/HCPCS: 74176; 80053; 81001; 84484; 85007; 85025; 87040; 87086; 93005; 96361; 96365; 96375; 99285; J0131; J0696; J2405

== ENCOUNTER 2024-01-03 16:56 | Outpatient (CLI) | payer OTHER, SELFPAY ==
[2024-01-03 17:11] LABS: Basophils # 0.1 K/mm3 (0-0.2); Basophils % 0.9 % (0.1-2.0); Eosinophils # 0.3 K/mm3 (0.0-0.4); Eosinophils % 2.1 % (0.1-12.0); Hematocrit 47.4 % (37.0-47.0); Hemoglobin 15.3 g/dL (12.2-16.2); Lymphocytes # 3.2 K/mm3 (0.7-4.5); Lymphocytes % 22.4 % (10-50); Mean Corpuscular HGB Conc 32.2 g/dL (31.8-35.4); Mean Corpuscular Hemoglobin 28.6 pg (27.0-31.2); Mean Corpuscular Volume 88.8 fl (81-99); Mean Platelet Volume 8.6 fl (7.4-10.4); Monocytes # 0.5 K/mm3 (0.1-1.0); Monocytes % 3.5 % (1.7-9.3); Neutrophils # 10.2 K/mm3 (1.8-7.8); Platelet Count 403 K/mm3 (142-424); Red Blood Count 5.34 M/mm3 (4.20-5.40); Red Cell Distribution Width 14.1 % (11.5-17.5); White Blood Count 14.3 K/mm3 (4.8-10.8)
[2024-01-03 17:23] LABS: Chloride 100 mmol/L (98-107); Potassium 3.9 mmoL/L (3.5-5.1); Sodium 136 mmol/L (136-145)
[2024-01-03 17:26] LABS: Anion Gap 12.9 mEq/L (5-15); Blood Urea Nitrogen 16 mg/dl (7-17); Carbon Dioxide 27 mmol/L (22.0-30.0); Estimated Glomerular Filt Rate 76 ml/min (>60); GFR (African American) 92 ML/MIN (>60)
[2024-01-03 17:27] LABS: Calcium 9.4 mg/dl (8.4-10.2); Glucose 125 mg/dl (74-100)
== END 2024-01-03 23:59 ==
LOC: LAB.DROPOF 16:57
PROVIDERS: PCP Internal Medicine; Visit Provider Internal Medicine
DX: N13.2 Hydronephrosis with renal and ureteral calculous obstruction (principal); N39.0 Urinary tract infection, site not specified; J45.909 Unspecified asthma, uncomplicated; I50.32 Chronic diastolic (congestive) heart failure; E53.8 Deficiency of other specified B group vitamins; R73.01 Impaired fasting glucose
CPT/HCPCS: 80048; 85025

== ENCOUNTER 2024-01-10 16:59 | Outpatient (CLI) | payer OTHER, SELFPAY | END 2024-01-10 23:59 | LOC: LAB.DROPOF 17:00 | PROVIDERS: PCP Internal Medicine; Visit Provider Internal Medicine | DX: N39.0 Urinary tract infection, site not specified (principal); B96.4 Proteus (mirabilis) (morganii) as the cause of diseases classified elsewhere; Z16.24 Resistance to multiple antibiotics | CPT/HCPCS: 87086 ==

== ENCOUNTER 2024-01-17 13:49 | Outpatient (CLI) | payer OTHER, SELFPAY ==
[2024-01-17 13:59] VITALS: BP 110/73; PULSE 83; RESP 18; TEMP 36.7; O2SAT 97
[2024-01-17] MEDS: ERTAPENEM SODIUM 1 GM VIAL IM (14:22)
[2024-01-17 14:30] VITALS: BP 140/73; PULSE 80; RESP 18; TEMP 36.3; O2SAT 96
== END 2024-01-17 14:46 | disposition home or self-care (01) ==
PROVIDERS: PCP Internal Medicine; Visit Provider Internal Medicine
DX: N39.0 Urinary tract infection, site not specified (principal); B96.4 Proteus (mirabilis) (morganii) as the cause of diseases classified elsewhere
CPT/HCPCS: 96372; J1335

== ENCOUNTER 2024-01-18 13:10 | Outpatient (CLI) | payer OTHER, SELFPAY ==
[2024-01-18] MEDS: ERTAPENEM SODIUM 1 GM VIAL IM (13:35)
== END 2024-01-18 23:59 ==
LOC: INF 13:11
PROVIDERS: PCP Internal Medicine; Visit Provider Internal Medicine
DX: N39.0 Urinary tract infection, site not specified (principal); B96.4 Proteus (mirabilis) (morganii) as the cause of diseases classified elsewhere
CPT/HCPCS: 96372; J1335

== ENCOUNTER 2024-01-19 13:40 | Outpatient (CLI) | payer OTHER, SELFPAY ==
[2024-01-19 13:53] VITALS: BP 136/80; PULSE 98; RESP 18; O2SAT 98
[2024-01-19] MEDS: ERTAPENEM SODIUM 1 GM VIAL IM (13:58)
[2024-01-19 14:05] VITALS: BP 136/80; PULSE 98; RESP 18; O2SAT 95
== END 2024-01-19 23:59 ==
LOC: INF 13:40
PROVIDERS: PCP Internal Medicine; Visit Provider Internal Medicine
DX: N39.0 Urinary tract infection, site not specified (principal); B96.4 Proteus (mirabilis) (morganii) as the cause of diseases classified elsewhere
CPT/HCPCS: 96372; J1335

== ENCOUNTER 2024-01-20 15:53 | Outpatient (CLI) | payer OTHER, SELFPAY ==
[2024-01-20 16:10] VITALS: BP 110/68; PULSE 69; RESP 16; TEMP 36.4; O2SAT 98
[2024-01-20] MEDS: ERTAPENEM SODIUM 1 GM VIAL IM (16:13)
== END 2024-01-20 16:18 | disposition home or self-care (01) ==
LOC: INF 15:53
PROVIDERS: PCP Internal Medicine; Visit Provider Internal Medicine
DX: N39.0 Urinary tract infection, site not specified (principal); B96.4 Proteus (mirabilis) (morganii) as the cause of diseases classified elsewhere
CPT/HCPCS: 96372; J1335

== ENCOUNTER 2024-01-21 11:38 | Outpatient (CLI) | payer OTHER, SELFPAY ==
[2024-01-21 12:04] VITALS: BP 93/56; PULSE 65; RESP 18; TEMP 36.1; O2SAT 96
[2024-01-21] MEDS: ERTAPENEM SODIUM 1 GM VIAL IM (12:05)
== END 2024-01-21 12:20 | disposition home or self-care (01) ==
LOC: INF 11:39
PROVIDERS: PCP Internal Medicine; Visit Provider Internal Medicine
DX: N39.0 Urinary tract infection, site not specified (principal); B96.4 Proteus (mirabilis) (morganii) as the cause of diseases classified elsewhere
CPT/HCPCS: 96372; J1335

== ENCOUNTER 2024-01-22 13:41 | Outpatient (CLI) | payer OTHER, SELFPAY ==
[2024-01-22 14:12] VITALS: BP 127/72; PULSE 74; RESP 16; O2SAT 97
[2024-01-22] MEDS: ERTAPENEM SODIUM 1 GM VIAL IM (14:13)
== END 2024-01-22 14:21 | disposition home or self-care (01) ==
LOC: INF 13:41
PROVIDERS: PCP Internal Medicine; Visit Provider Internal Medicine
DX: N39.0 Urinary tract infection, site not specified (principal); B96.4 Proteus (mirabilis) (morganii) as the cause of diseases classified elsewhere
CPT/HCPCS: 96372; J1335

== ENCOUNTER 2024-01-23 13:46 | Outpatient (CLI) | payer OTHER, SELFPAY ==
[2024-01-23 14:10] VITALS: BP 107/64; PULSE 55; RESP 16; TEMP 36.7; O2SAT 97
[2024-01-23] MEDS: ERTAPENEM SODIUM 1 GM VIAL IM (14:10)
== END 2024-01-23 14:15 | disposition home or self-care (01) ==
LOC: INF 13:47
PROVIDERS: PCP Internal Medicine; Visit Provider Internal Medicine
DX: N39.0 Urinary tract infection, site not specified (principal); B96.4 Proteus (mirabilis) (morganii) as the cause of diseases classified elsewhere
CPT/HCPCS: 96372; J1335

== ENCOUNTER 2024-01-24 13:51 | Outpatient (CLI) | payer OTHER, SELFPAY ==
[2024-01-24] MEDS: ERTAPENEM SODIUM 1 GM VIAL IM (14:21)
[2024-01-24 14:24] VITALS: BP 121/57; PULSE 54; RESP 18; TEMP 36.6; O2SAT 95
== END 2024-01-24 14:24 | disposition home or self-care (01) ==
LOC: INF 13:51
PROVIDERS: PCP Internal Medicine; Visit Provider Internal Medicine
DX: N39.0 Urinary tract infection, site not specified (principal); B96.4 Proteus (mirabilis) (morganii) as the cause of diseases classified elsewhere
CPT/HCPCS: 96372; J1335

== ENCOUNTER 2024-01-25 13:41 | Outpatient (CLI) | payer OTHER, SELFPAY ==
[2024-01-25 14:03] VITALS: BP 138/95; PULSE 56; O2SAT 93
[2024-01-25] MEDS: ERTAPENEM SODIUM 1 GM VIAL IM (14:09)
== END 2024-01-25 14:08 | disposition home or self-care (01) ==
LOC: INF 13:41
PROVIDERS: PCP Internal Medicine; Visit Provider Internal Medicine
DX: N39.0 Urinary tract infection, site not specified (principal); B96.4 Proteus (mirabilis) (morganii) as the cause of diseases classified elsewhere
CPT/HCPCS: 96372; J1335

== ENCOUNTER 2024-01-26 13:43 | Outpatient (CLI) | payer OTHER, SELFPAY ==
[2024-01-26] MEDS: ERTAPENEM SODIUM 1 GM VIAL IM (14:22)
== END 2024-01-26 14:23 | disposition home or self-care (01) ==
LOC: INF 13:44
PROVIDERS: PCP Internal Medicine; Visit Provider Internal Medicine
DX: N39.0 Urinary tract infection, site not specified (principal); B96.4 Proteus (mirabilis) (morganii) as the cause of diseases classified elsewhere
CPT/HCPCS: 96372; J1335

== ENCOUNTER 2024-01-27 13:42 | Outpatient (CLI) | payer OTHER, SELFPAY ==
[2024-01-27 14:10] VITALS: BP 119/62; PULSE 61; RESP 18; O2SAT 94
[2024-01-27] MEDS: ERTAPENEM SODIUM 1 GM VIAL IM (14:10)
== END 2024-01-27 14:12 | disposition home or self-care (01) ==
LOC: INF 13:42
PROVIDERS: PCP Internal Medicine; Visit Provider Internal Medicine
DX: N39.0 Urinary tract infection, site not specified (principal)
CPT/HCPCS: 96372; J1335

== ENCOUNTER 2024-01-28 13:54 | Outpatient (CLI) | payer OTHER, SELFPAY ==
[2024-01-28] MEDS: ERTAPENEM SODIUM 1 GM VIAL IM (14:20)
[2024-01-28 14:22] VITALS: BP 109/56; PULSE 57; RESP 16; TEMP 35.9; O2SAT 97
== END 2024-01-28 14:28 | disposition home or self-care (01) ==
LOC: INF 13:55
PROVIDERS: PCP Internal Medicine; Visit Provider Internal Medicine
DX: N39.0 Urinary tract infection, site not specified (principal)
CPT/HCPCS: 96372; J1335

== ENCOUNTER 2024-01-29 13:47 | Outpatient (CLI) | payer OTHER, SELFPAY ==
[2024-01-29 14:30] VITALS: BP 110/60; PULSE 64; RESP 16; O2SAT 95
[2024-01-29] MEDS: ERTAPENEM SODIUM 1 GM VIAL IM (14:30)
== END 2024-01-29 14:35 | disposition home or self-care (01) ==
LOC: INF 13:47
PROVIDERS: PCP Internal Medicine; Visit Provider Internal Medicine
DX: N39.0 Urinary tract infection, site not specified (principal)
CPT/HCPCS: 96372; J1335

== ENCOUNTER 2024-01-29 14:45 | Emergency (ER) | payer OTHER, SELFPAY ==
[2024-01-29 14:45] VITALS: BP 125/94; PULSE 86; RESP 16; TEMP 36.6; O2SAT 98; BMI 49.6
--- NOTE | 2024-01-29 14:46 | XR_ITS ---
FINAL REPORT CLINICAL HISTORY: Chest pain, sob COMPARISON: 07/09/2023 FINDINGS: A single portable view of the chest was obtained. A loop recorder is present. The heart size and pulmonary vascularity are within normal limits. The mediastinum is within normal limits. No acute pulmonary abnormality is identified. The bony thorax is intact. IMPRESSION: No active cardiopulmonary disease. Reviewed, Interpreted and Dictated by Clinton Argueta III, MD Transcribed by Liliam Benoit Authenticated and [facility]
--- NOTE | 2024-01-29 14:46 | ED_ITS ---
<Statement entered by Moriah Singh DO - 01/29/24 22:46> I was consulted by the MARCUS, and we discussed the complexity of the problems being addressed. I approved the treatment and management plan for this patient's care in the emergency department, thus performing a substantive portion of the medical decision making. Moriah Singh DO Discharge Plan Disposition Patient Disposition: Home, Self-Care Condition: Good Prescriptions Prescriptions: New prednisone 50 mg tablet 50 mg PO DAILY 5 Days Qty: 5 0RF No Action tizanidine [Zanaflex] 4 mg capsule 4 mg PO TIDP PRN (Reason: Muscle Spasm) spironolactone [Aldactone] 50 mg tablet 50 mg PO DAILY bumetanide 2 mg tablet 2 mg PO DAILY Entresto 24-26 mg tablet 1 tab PO BID pravastatin 10 mg tablet 10 mg PO DAILY Patient Comments: TAKE ONE TABLET BY MOUTH EVERY DAY AT BEDTIME Ozempic 0.25 mg or 0.5 mg (2 mg/3 mL) pen injector 0.5 mg SQ WEEKLY Patient Comments: INJECT 0.25 MG SUBCUTANEOUSLY into THE appropriate AREA DIRECTED 1 time PER WEEK albuterol sulfate [ProAir HFA] 90 mcg/actuation HFA aerosol inhaler 2 puff IH Q4HP PRN (Reason: Shortness Of Breath) promethazine 25 mg tablet 12.5 mg PO Q4HP PRN (Reason: Nausea) omeprazole 20 mg capsule,delayed release(DR/EC) 20 mg PO DAILY Farxiga 10 mg tablet See Rx Instructions .ROUTE .COMPLEX Qty: 90 1RF Dose Instruction: TAKE ONE TABLET BY MOUTH EVERY DAY Rx Instructions: TAKE ONE TABLET BY MOUTH EVERY DAY metformin 1,000 MG tablet 500 mg PO BIDWMEAL nebivolol 5 MG tablet 5 mg PO DAILY tramadol 50 MG tablet 50 - 100 mg PO Q6HP PRN (Reason: Moderate Pain) fluticasone propion-salmeterol 28 PUFFS/50 MCG inhaler 1 puff IH BID ibuprofen 800 MG tablet 800 mg PO TIDP PRN (Reason: Mild Pain,Fever,Headache) acetaminophen 325 MG tablet 650 mg PO Q4HP PRN (Reason: Mild Pain) 0RF Referrals Follow up/Referrals: Juarez Griffin MD [Primary Care Provider] - See instructions Clinical Impressions Clinical Impression: Left-sided chest pain, Acute exacerbation of chronic obstructive pulmonary disease Discharge ED Provider: Moriah Singh HPI <DORY Paniagua - Last Filed: 01/29/24 16:16> General Chief Complaint: Chest Pain Stated Complaint: Chest Pain Time Seen by Provider: 01/29/24 14:46 History of Present Illness HPI narrative: Patient presents for acute onset of left-sided chest pain. Patient was in the infusion center getting a infusion of Invanz for an ESBL tract infection. She began having left-sided chest pain that she describes goes from front to back of the left chest. Patient has a history of COPD and diastolic CHF with preserved ejection fraction according to the patient. Patient is not chronically on O2 but reports that she has been having to use her rescue metered-dose inhaler multiple times a day. She denies fever chills hemoptysis hematochezia melena nausea vomiting diarrhea.. Related Data Home Medications Medication Instructions Recorded Confirmed tizanidine 4 mg capsule (Zanaflex) 4 mg PO TIDP PRN Muscle Spasm 02/22/20 01/27/24 metformin 1,000 mg tablet 500 mg PO BIDWMEAL Diabetes 12/21/21 01/27/24 nebivolol 5 mg tablet 5 mg PO DAILY Hypertension 12/21/21 01/27/24 tramadol 50 mg tablet 50 - 100 mg PO Q6HP PRN Moderate 12/22/21 01/27/24 Pain albuterol sulfate 90 mcg/actuation 2 puff inhalation Q4HP PRN 12/28/21 01/27/24 aerosol inhaler (ProAir HFA) Shortness Of Breath promethazine 25 mg tablet 12.5 mg PO Q4HP PRN Nausea 03/30/22 01/27/24 spironolactone 50 mg tablet 50 mg PO DAILY Fluid 03/30/22 01/27/24 (Aldactone) omeprazole 20 mg capsule,delayed 20 mg PO DAILY GERD 04/24/22 01/27/24 release fluticasone 250 mcg-salmeterol 50 1 puff inhalation BID COPD 04/27/22 01/27/24 mcg/dose blistr powdr for inhalation ibuprofen 800 mg tablet 800 mg PO TIDP PRN Mild 05/01/22 01/27/24 Pain,Fever,Headache bumetanide 2 mg tablet 2 mg PO DAILY 03/04/23 01/27/24 pravastatin 10 mg tablet 10 mg PO DAILY 03/04/23 01/27/24 sacubitril 24 mg-valsartan 26 mg 1 tab PO BID 03/04/23 01/27/24 tablet (Entresto) semaglutide 0.25 mg or 0.5 mg (2 0.5 mg SQ WEEKLY 03/04/23 01/27/24 mg/3 mL) subcutaneous pen injector (Ozempic) Previous Rx's Medication Instructions Recorded acetaminophen 325 mg tablet 650 mg (2 x 325 mg) PO Q4HP PRN 05/04/22 Mild Pain dapagliflozin propanediol 10 mg See Rx Instructions .Route 01/14/23 tablet (Farxiga) .COMPLEX #90 tabs prednisone 50 mg tablet 50 mg PO DAILY 5 days #5 tabs 01/29/24 Allergies Allergy/AdvReac Type Severity Reaction Status Date / Time aspirin Allergy Severe S-DIFF. Verified 01/22/24 14:21 BREATHING bee venom protein (honey bee) Allergy Severe Anaphylaxis Verified 01/21/24 13:26 Bleach (Sodium Hypochlorite) Allergy Severe diff. Verified 01/21/24 13:26 breathing, dizzy pneumococcal vaccine Allergy Verified 01/21/24 13:26 sulfamethoxazole Allergy Verified 01/21/24 13:26 [From Bactrim] trimethoprim [From Bactrim] Allergy Verified 01/21/24 13:26 sucralose AdvReac Severe breathing Verified 01/21/24 13:26 [From SUCRALOSE (FOOD/DRUG)] problems [facility] <DORY Paniagua - Last Filed: 01/29/24 16:16> [facility] Disclaimer: The information contained in this section may have been updated after the patient was seen, as this information can be updated by other users. Medical History Adnexal mass Altered mental status Asthma with exacerbation Cellulitis of right wrist Pneumonia Right flank pain Septic shock Severe sepsis with acute organ dysfunction Syncope Surgical History History of tubal ligation S/P hysterectomy S/P right oophorectomy Family History Other Alzheimer disease Bipolar 1 disorder Dementia Family history of diabetes mellitus type II Family history of myocardial infarction Lung cancer Lupus Social History (Updated 01/30/24 @ 14:20 by TALIA Escobar) Smoking Status: Former smoker second hand exposure: No alcohol intake: current substance use type: denies use current occupational status: unemployed and disabled Travel in the last 8 weeks: None household members: spouse housing: house current occupational exposures/hazards: No caffeine: Yes <DORY Paniagua - Last Filed: 01/29/24 16:16> ROS Obtained: Yes Systems reviewed as appropriate & no additional complaints except as documented Physical Exam <DORY Paniagua - Last Filed: 01/29/24 16:16> General General appearance: alert and in no apparent distress Head Head exam: atraumatic and normal inspection Eye Eye exam: Present normal appearance, PERRL and EOMI ENT ENT exam: Present normal exam, normal oropharynx and mucous membranes moist Neck Neck exam: Present normal inspection, full ROM and trachea midline; Absent lymphadenopathy Chest Chest inspection: Present normal inspection and symmetric chest wall rise; Absent tenderness Respiratory Respiratory exam: Present normal lung sounds bilaterally; Absent respiratory distress, wheezes, stridor or accessory muscle use Cardiovascular Cardiovascular exam: Present regular rate, normal rhythm, normal heart sounds, +S1 and +S2 Abdominal Exam Abdominal exam: Present soft (Obese) and normal bowel sounds; Absent tenderness, guarding or rebound Extremities Exam Extremities exam: Present normal inspection and full ROM Neurological Exam Neurological exam: Present alert, oriented X3 and CN II-XII intact Psychiatric Psychiatric exam: Present normal affect and normal mood Skin Skin exam: Present warm, dry and normal color HEART Score <DORY Paniagua - Last Filed: 01/29/24 16:16> HEART Score HEART Score assessment performed?: No History (anamnesis): Slightly suspicious ECG: Normal Age: 45-65 years Risk factors: 3 or more risk factors Troponin: </= normal limit HEART Score: 3 <Moriah Singh DO - Last Filed: 01/29/24 22:46> HEART Score HEART Score: 3 <Jose Alejandro Kim MD - Last Filed: 01/30/24 16:14> HEART Score HEART Score: 3 Critical Care <DORY Paniagua - Last Filed: 01/29/24 16:16> Critical Care Time Critical Care Time: No Medical Decision Making <DORY Paniagua - Last Filed: 01/29/24 16:16> Medical Records Medical records reviewed: Yes I reviewed the patient's medical records. Harjinder Inquiry Pt receiving controlled substance: No Vital Signs Vital Signs: 01/29/24 14:45 01/29/24 15:30 01/29/24 16:00 Temperature 97.8 F Temperature Source Oral Pulse Rate 94 H 95 H Pulse Rate [Left Radial] 86 Respiratory Rate 16 Blood Pressure 115/81 134/90 Blood Pressure [Right Arm] 125/94 H Blood Pressure Mean 97 98 Blood Pressure Mean [Right Arm] 104 Blood Pressure Source [Right Arm] Automatic Cuff Blood Pressure Position [Right Arm] Sitting 02 Sat by Pulse Oximetry 98 98 94 L Oxygen Delivery Method Room Air 01/29/24 16:19 Temperature 97.8 F Temperature Source Pulse Rate 85 Pulse Rate [Left Radial] Respiratory Rate 20 Blood Pressure 139/79 Blood Pressure [Right Arm] Blood Pressure Mean Blood Pressure Mean [Right Arm] Blood Pressure Source [Right Arm] Blood Pressure Position [Right Arm] 02 Sat by Pulse Oximetry Oxygen Delivery Method Room Air Lab Data Lab results reviewed: Yes I reviewed the patient's lab results. Labs: Lab Results 01/29/24 14:46: WBC 12.0 H, RBC 5.41 H, Hgb 15.6, Hct 47.9 H, MCV 88.6, MCH 28.8, MCHC 32.5, RDW 14.8, Plt Count 357, MPV 7.8, Neut % (Auto) 69.2, Lymph % (Auto) 23.5, [place] % (Auto) 4.1, Eos % (Auto) 2.1, Baso % (Auto) 1.0, Neut # (Auto) 8.3 H, Lymph # (Auto) 2.8, [place] # (Auto) 0.5, Eos # (Auto) 0.3, Baso # (Auto) 0.1, PT 10.2, INR 0.94, D-Dimer 0.40, Sodium 139, Potassium 4.0, Chloride 102, Carbon Dioxide 30, Anion Gap 11.0, BUN 14, Creatinine 0.80, Estimated Creat Clear 70, Estimated GFR 76, Est GFR ( Amer) 92, Glucose 151 H, Calcium 10.3 H, Magnesium 2.0, Total Bilirubin 0.5, AST 54 H, ALT 57, Alkaline Phosphatase 102, Troponin I < 0.01, NT-Pro-B Natriuret Pep 39.2, Total Protein 7.9, Albumin 4.3, Globulin 3.6 H, Albumin/Globulin Ratio 1.2 01/29/24 15:01: SARS-CoV-2 (PCR) Not detected, Influenza A Untype (PCR) Not detected, Influenza Type B (PCR) Not detected 01/29/24 14:46 01/29/24 14:46 Response Orders (Tests/Meds): ED MEDICATIONS Discontinued Medications Generic Name Dose Route Start Last Admin Trade Name Freq PRN Reason Stop Dose Admin Acetaminophen 1,000 mg 01/29/24 14:46 01/29/24 15:09 Acetaminophen 1,000mg/100ml Vial IV 01/29/24 14:47 1,000 mg ONCE ONE Administration Albuterol/Ipratropium 3 ml 01/29/24 14:46 01/29/24 15:09 Ipratropium/Albuterol 3 Ml Neb IH 01/29/24 14:47 3 ml ONCE ONE Administration Dexamethasone Sodium Phosphate 10 mg 01/29/24 14:46 01/29/24 15:11 Dexamethasone 4mg/Ml 1ml Vial IM 01/29/24 14:47 Not Given ONCE ONE Dexamethasone Sodium Phosphate 10 mg 01/29/24 15:11 01/29/24 15:21 Dexamethasone 4mg/Ml 1ml Vial IV 01/29/24 15:12 10 mg ONCE ONE Administration Ketorolac Tromethamine 15 mg 01/29/24 14:59 01/29/24 15:08 Ketorolac 30mg/Ml Vial IV 01/29/24 15:00 15 mg ONCE ONE Administration ORDERS Category Date Time Status Chest XR -- portable [XR chest portable] Stat Exams 01/29/24 14:46 Completed BNP [NT Pro Brain Natriuretic Pep.] Stat Lab 01/29/24 14:46 Completed CBC w/Auto Diff [Complete Blood Count Auto Diff] Stat Lab 01/29/24 14:46 Completed CMP [Comprehensive Metabolic Panel] Stat Lab 01/29/24 14:46 Completed D-Dimer Stat Lab 01/29/24 14:46 Completed INR [Prothrombin Time INR] Stat Lab 01/29/24 14:46 Completed Magnesium Stat Lab 01/29/24 14:46 Completed Rapid PCR Covid and Flu A/B Stat Lab 01/29/24 15:01 Completed Trop I [Troponin I] Stat Lab 01/29/24 14:46 Completed MDM Narrative Medical Decision Narrative: In summary patient is a 48-year-old female who presents to the emergency department for evaluation of left-sided chest pain. Patient is hemodynamically stable satting at 98% on room air with a respiratory rate of 16 upon arrival, and afebrile. Physical exam is unremarkable and nonfocal including wheezes diminished breath sounds increased work of breathing or reproducible discomfort on palpation. Differential diagnosis includes ACS versus PE versus COPD versus CHF exacerbation versus viral bacterial infection etc. Initial workup will be conducted with hematologic labs plain film chest x-ray twelve-lead EKG. Initial interventions include Toradol Tylenol DuoNeb Decadron. Initial workup reviewed by me shows that she has a mild leukocytosis but the remainder of her labs are nonactionable including negative respiratory swabs, undetectable troponin. Upon repeat evaluation patient reports improvement in her constitutional symptoms after DuoNeb and Decadron.. Given this as patient has no new oxygen requirement and reports improvement in her subjective symptoms patient is appropriate for discharge home with a prescription for 5 days of steroids and with close follow- up with her in store representative and primary care. Patient verbalized understanding and agreement. <Moriah Singh, DO - Last Filed: 01/29/24 22:46> Vital Signs Vital Signs: 01/29/24 14:45 01/29/24 15:30 01/29/24 16:00 Temperature 97.8 F Temperature Source Oral Pulse Rate 94 H 95 H Pulse Rate [Left Radial] 86 Respiratory Rate 16 Blood Pressure 115/81 134/90 Blood Pressure [Right Arm] 125/94 H Blood Pressure Mean 97 98 Blood Pressure Mean [Right Arm] 104 Blood Pressure Source [Right Arm] Automatic Cuff Blood Pressure Position [Right Arm] Sitting 02 Sat by Pulse Oximetry 98 98 94 L Oxygen Delivery Method Room Air 01/29/24 16:19 Temperature 97.8 F Temperature Source Pulse Rate 85 Pulse Rate [Left Radial] Respiratory Rate 20 Blood Pressure 139/79 Blood Pressure [Right Arm] Blood Pressure Mean Blood Pressure Mean [Right Arm] Blood Pressure Source [Right Arm] Blood Pressure Position [Right Arm] 02 Sat by Pulse Oximetry Oxygen Delivery Method Room Air Lab Data Labs: Lab Results 01/29/24 14:46: WBC 12.0 H, RBC 5.41 H, Hgb 15.6, Hct 47.9 H, MCV 88.6, MCH 28.8, MCHC 32.5, RDW 14.8, Plt Count 357, MPV 7.8, Neut % (Auto) 69.2, Lymph % (Auto) 23.5, [place] % (Auto) 4.1, Eos % (Auto) 2.1, Baso % (Auto) 1.0, Neut # (Auto) 8.3 H, Lymph # (Auto) 2.8, [place] # (Auto) 0.5, Eos # (Auto) 0.3, Baso # (Auto) 0.1, PT 10.2, INR 0.94, D-Dimer 0.40, Sodium 139, Potassium 4.0, Chloride 102, Carbon Dioxide 30, Anion Gap 11.0, BUN 14, Creatinine 0.80, Estimated Creat Clear 70, Estimated GFR 76, Est GFR ( Amer) 92, Glucose 151 H, Calcium 10.3 H, Magnesium 2.0, Total Bilirubin 0.5, AST 54 H, ALT 57, Alkaline Phosphatase 102, Troponin I < 0.01, NT-Pro-B Natriuret Pep 39.2, Total Protein 7.9, Albumin 4.3, Globulin 3.6 H, Albumin/Globulin Ratio 1.2 01/29/24 15:01: SARS-CoV-2 (PCR) Not detected, Influenza A Untype (PCR) Not detected, Influenza Type B (PCR) Not detected Response Orders (Tests/Meds): ED MEDICATIONS Discontinued Medications Generic Name Dose Route Start Last Admin Trade Name Rustamq PRN Reason Stop Dose Admin Acetaminophen 1,000 mg 01/29/24 14:46 01/29/24 15:09 Acetaminophen 1,000mg/100ml Vial IV 01/29/24 14:47 1,000 mg ONCE ONE Administration Albuterol/Ipratropium 3 ml 01/29/24 14:46 01/29/24 15:09 Ipratropium/Albuterol 3 Ml Neb 01/29/24 14:47 3 ml ONCE ONE Administration Dexamethasone Sodium Phosphate 10 mg 01/29/24 14:46 01/29/24 15:11 Dexamethasone 4mg/Ml 1ml Vial IM 01/29/24 14:47 Not Given ONCE ONE Dexamethasone Sodium Phosphate 10 mg 01/29/24 15:11 01/29/24 15:21 Dexamethasone 4mg/Ml 1ml Vial IV 01/29/24 15:12 10 mg ONCE ONE Administration Ketorolac Tromethamine 15 mg 01/29/24 14:59 01/29/24 15:08 Ketorolac 30mg/Ml Vial IV 01/29/24 15:00 15 mg ONCE ONE Administration ORDERS Category Date Time Status Chest XR -- portable [XR chest portable] Stat Exams 01/29/24 14:46 Completed BNP [NT Pro Brain Natriuretic Pep.] Stat Lab 01/29/24 14:46 Completed CBC w/Auto Diff [Complete Blood Count Auto Diff] Stat Lab 01/29/24 14:46 Completed CMP [Comprehensive Metabolic Panel] Stat Lab 01/29/24 14:46 Completed D-Dimer Stat Lab 01/29/24 14:46 Completed INR [Prothrombin Time INR] Stat Lab 01/29/24 14:46 Completed Magnesium Stat Lab 01/29/24 14:46 Completed Rapid PCR Covid and Flu A/B Stat Lab 01/29/24 15:01 Completed Trop I [Troponin I] Stat Lab 01/29/24 14:46 Completed ECG Data Tracing #1: Attestation: I reviewed this ECG and interpreted as documented below: ECG Narrative: Normal sinus rhythm with ventricular rate of [address] changes concerning for ischemia. Normal axis and intervals. ECG initial impression date: 01/29/24 ECG initial impression time: 14:48 <Jose Alejandro Kim MD - Last Filed: 01/30/24 16:14> Vital Signs Vital Signs: 01/29/24 14:45 01/29/24 15:30 01/29/24 16:00 Temperature 97.8 F Temperature Source Oral Pulse Rate 94 H 95 H Pulse Rate [Left Radial] 86 Respiratory Rate 16 Blood Pressure 115/81 134/90 Blood Pressure [Right Arm] 125/94 H Blood Pressure Mean 97 98 Blood Pressure Mean [Right Arm] 104 Blood Pressure Source [Right Arm] Automatic Cuff Blood Pressure Position [Right Arm] Sitting 02 Sat by Pulse Oximetry 98 98 94 L Oxygen Delivery Method Room Air 01/29/24 16:19 Temperature 97.8 F Temperature Source Pulse Rate 85 Pulse Rate [Left Radial] Respiratory Rate 20 Blood Pressure 139/79 Blood Pressure [Right Arm] Blood Pressure Mean Blood Pressure Mean [Right Arm] Blood Pressure Source [Right Arm] Blood Pressure Position [Right Arm] 02 Sat by Pulse Oximetry Oxygen Delivery Method Room Air Lab Data Labs: Lab Results 01/29/24 14:46: WBC 12.0 H, RBC 5.41 H, Hgb 15.6, Hct 47.9 H, MCV 88.6, MCH 28.8, MCHC 32.5, RDW 14.8, Plt Count 357, MPV 7.8, Neut % (Auto) 69.2, Lymph % (Auto) 23.5, [place] % (Auto) 4.1, Eos % (Auto) 2.1, Baso % (Auto) 1.0, Neut # (Auto) 8.3 H, Lymph # (Auto) 2.8, [place] # (Auto) 0.5, Eos # (Auto) 0.3, Baso # (Auto) 0.1, PT 10.2, INR 0.94, D-Dimer 0.40, Sodium 139, Potassium 4.0, Chloride 102, Carbon Dioxide 30, Anion Gap 11.0, BUN 14, Creatinine 0.80, Estimated Creat Clear 70, Estimated GFR 76, Est GFR ( Amer) 92, Glucose 151 H, Calcium 10.3 H, Magnesium 2.0, Total Bilirubin 0.5, AST 54 H, ALT 57, Alkaline Phosphatase 102, Troponin I < 0.01, NT-Pro-B Natriuret Pep 39.2, Total Protein 7.9, Albumin 4.3, Globulin 3.6 H, Albumin/Globulin Ratio 1.2 01/29/24 15:01: SARS-CoV-2 (PCR) Not detected, Influenza A Untype (PCR) Not detected, Influenza Type B (PCR) Not detected Response Orders (Tests/Meds): ED MEDICATIONS Discontinued Medications Generic Name Dose Route Start Last Admin Trade Name Freq PRN Reason Stop Dose Admin Acetaminophen 1,000 mg 01/29/24 14:46 01/29/24 15:09 Acetaminophen 1,000mg/100ml Vial IV 01/29/24 14:47 1,000 mg ONCE ONE Administration Albuterol/Ipratropium 3 ml 01/29/24 14:46 01/29/24 15:09 Ipratropium/Albuterol 3 Ml [facility] 01/29/24 14:47 3 ml ONCE ONE Administration Dexamethasone Sodium Phosphate 10 mg 01/29/24 14:46 01/29/24 15:11 Dexamethasone 4mg/Ml 1ml Vial IM 01/29/24 14:47 Not Given ONCE ONE Dexamethasone Sodium Phosphate 10 mg 01/29/24 15:11 01/29/24 15:21 Dexamethasone 4mg/Ml 1ml Vial IV 01/29/24 15:12 10 mg ONCE ONE Administration Ketorolac Tromethamine 15 mg 01/29/24 14:59 01/29/24 15:08 Ketorolac 30mg/Ml Vial IV 01/29/24 15:00 15 mg ONCE ONE Administration ORDERS Category Date Time Status Chest XR -- portable [XR chest portable] Stat Exams 01/29/24 14:46 Completed BNP [NT Pro Brain Natriuretic Pep.] Stat Lab 01/29/24 14:46 Completed CBC w/Auto Diff [Complete Blood Count Auto Diff] Stat Lab 01/29/24 14:46 Completed CMP [Comprehensive Metabolic Panel] Stat Lab 01/29/24 14:46 Completed D-Dimer Stat Lab 01/29/24 14:46 Completed INR [Prothrombin Time INR] Stat Lab 01/29/24 14:46 Completed Magnesium Stat Lab 01/29/24 14:46 Completed Rapid PCR Covid and Flu A/B Stat Lab 01/29/24 15:01 Completed Trop I [Troponin I] Stat Lab 01/29/24 14:46 Completed MDM Narrative Medical Decision Narrative: In summary patient is a 48-year-old female who presents to the emergency department for evaluation of left-sided chest pain. Patient is hemodynamically stable satting at 98% on room air with a respiratory rate of 16 upon arrival, and afebrile. Physical exam is unremarkable and nonfocal including wheezes diminished breath sounds increased work of breathing or reproducible discomfort on palpation. Differential diagnosis includes ACS versus PE versus COPD versus CHF exacerbation versus viral bacterial infection etc. Initial workup will be conducted with hematologic labs plain film chest x-ray twelve-lead EKG. Initial interventions include Toradol Tylenol DuoNeb Decadron. Initial workup reviewed by me shows that she has a mild leukocytosis but the remainder of her labs are nonactionable including negative respiratory swabs, undetectable troponin. Upon repeat evaluation patient reports improvement in her constitutional symptoms after DuoNeb and Decadron.. Given this as patient has no new oxygen requirement and reports improvement in her subjective symptoms patient is appropriate for discharge home with a prescription for 5 days of steroids and with close follow- up with her in store representative and primary care. Patient verbalized understanding and agreement. I was consulted by the MARCUS, and we discussed the complexity of the problems being addressed. I approved the treatment and management plan for this patient?s care in the Emergency Department, thus performing a substantive portion of the medical decision making. Jose Alejandro Kim MD
--- NOTE | 2024-01-29 14:48 | ECG_ITS ---
APPROVED REPORT Exam: Resting ECG HR:73 bpm ECG Measurements Heart Rate 73 AXES MD 160 P 42 QRSd 87 QRS 30 QT 387 T 36 QTc 412 Conclusion SINUS RHYTHM LOW QRS VOLTAGE IN PRECORDIAL LEADS [QRS DEFLECTION < 1.0 mV IN CHEST LEADS] Electronically signed by : BONNY CADE, 01/29/2024 23:26:56
[2024-01-29 14:59] LABS: Basophils # 0.1 K/mm3 (0-0.2); Eosinophils # 0.3 K/mm3 (0.0-0.4); Eosinophils % 2.1 % (0.1-12.0); Hematocrit 47.9 % (37.0-47.0); Hemoglobin 15.6 g/dL (12.2-16.2); Lymphocytes # 2.8 K/mm3 (0.7-4.5); Lymphocytes % 23.5 % (10-50); Mean Corpuscular HGB Conc 32.5 g/dL (31.8-35.4); Mean Corpuscular Hemoglobin 28.8 pg (27.0-31.2); Mean Corpuscular Volume 88.6 fl (81-99); Mean Platelet Volume 7.8 fl (7.4-10.4); Monocytes # 0.5 K/mm3 (0.1-1.0); Monocytes % 4.1 % (1.7-9.3); Neutrophils # 8.3 K/mm3 (1.8-7.8); Neutrophils % 69.2 % (37.0-80.0); Platelet Count 357 K/mm3 (142-424); Red Blood Count 5.41 M/mm3 (4.20-5.40); Red Cell Distribution Width 14.8 % (11.5-17.5)
[2024-01-29 15:05] LABS: INR 0.94 (0.9-1.1); Prothrombin Time 10.2 seconds (10.1-12.5)
[2024-01-29 15:06] LABS: Coronavirus 19, PCR Not Detected (NotDetected); Influenza A, PCR Not Detected (NotDetected); Influenza B, PCR Not Detected (NotDetected)
[2024-01-29] MEDS: KETOROLAC 30MG/ML VIAL 15 MG IV (15:08)
[2024-01-29] MEDS: IPRATROPIUM/ALBUTEROL 3 ML NEB IH (15:09)
[2024-01-29] MEDS: ACETAMINOPHEN 1,000MG/100ML VIAL 1000 MG IV (15:09)
[2024-01-29 15:17] LABS: Alanine Aminotransferase 57 U/L (12-78); Albumin Level 4.3 g/dl (3.5-5.0); Albumin/Globulin Ratio 1.2 (1.1-1.8); Alkaline Phosphatase 102 U/L (38-126); Aspartate Amino Transferase 54 U/L (14-36); Bilirubin,Total 0.5 mg/dl (0.2-1.3); Blood Urea Nitrogen 14 mg/dl (7-17); Calcium 10.3 mg/dl (8.4-10.2); Carbon Dioxide 30 mmol/L (22.0-30.0); Chloride 102 mmol/L (98-107); Creatinine Clearance Estimated 70 mL/min (50-200); Estimated Glomerular Filt Rate 76 ml/min (>60); GFR (African American) 92 ML/MIN (>60); Globulin 3.6 g/dL (1.3-3.2); Glucose 151 mg/dl (74-100); Sodium 139 mmol/L (136-145); Total Protein,Serum 7.9 g/dl (6.3-8.2)
[2024-01-29] MEDS: DEXAMETHASONE 4MG/ML 1ML VIAL 10 MG IV (15:21)
[2024-01-29 15:30] VITALS: BP 115/81; PULSE 94; O2SAT 98
[2024-01-29 15:30] LABS: NT Pro Brain Natriuretic Pep. 39.2 pg/mL (0-125); Troponin I < 0.01 ng/ml (0.00-0.034)
[2024-01-29 16:00] VITALS: BP 134/90; PULSE 95; O2SAT 94
--- NOTE | 2024-01-29 16:18 | PC.NURSE ---
rounded on pt, family at bedside. pt has no questions or concerns at this time.
[2024-01-29 16:19] VITALS: BP 139/79; PULSE 85; RESP 20; TEMP 36.6; O2SAT 96
== END 2024-01-29 16:21 | disposition home or self-care (01) ==
PROVIDERS: Physician Assistant; Emergency Provider Emergency Medicine; PCP Internal Medicine
DX: R07.89 Other chest pain (principal); J44.1 Chronic obstructive pulmonary disease with (acute) exacerbation; I11.0 Hypertensive heart disease with heart failure; I50.30 Unspecified diastolic (congestive) heart failure; Z87.891 Personal history of nicotine dependence
CPT/HCPCS: 71045; 80053; 83735; 83880; 84484; 85025; 85378; 85610; 87636; 93005; 96372; 96374; 96375; 99285; J0131

== ENCOUNTER 2024-01-30 13:50 | Outpatient (CLI) | payer OTHER, SELFPAY ==
[2024-01-30] MEDS: ERTAPENEM SODIUM 1 GM VIAL IM (14:18)
[2024-01-30 14:20] VITALS: BP 99/59; PULSE 75; RESP 18; TEMP 36.3; O2SAT 93
== END 2024-01-30 14:23 | disposition home or self-care (01) ==
LOC: INF 13:51
PROVIDERS: PCP Internal Medicine; Visit Provider Internal Medicine
DX: N39.0 Urinary tract infection, site not specified (principal)
CPT/HCPCS: 96372; J1335

== ENCOUNTER 2024-02-04 15:53 | Outpatient (CLI) | payer OTHER, SELFPAY | END 2024-02-04 23:59 | LOC: LAB.DROPOF 15:53 | PROVIDERS: PCP Internal Medicine; Visit Provider Internal Medicine | DX: N39.0 Urinary tract infection, site not specified (principal); B96.4 Proteus (mirabilis) (morganii) as the cause of diseases classified elsewhere | CPT/HCPCS: 87086 ==

== ENCOUNTER 2024-02-06 02:07 | Observation (INO) | payer OTHER, SELFPAY ==
[2024-02-06] VITALS (10 sets, daily range): BP systolic 107–153; BP diastolic 53–84; PULSE 82–101; RESP 16–18; TEMP 36.4–36.9; O2SAT 92–98; BMI 49.6; BMI 50.9
--- NOTE | 2024-02-06 02:21 | HMH.EDGENADL ---
Discharge Plan Disposition Patient Disposition: Admitted Chief Complaint: Skin/Abscess/Foreign Body Prescriptions Prescriptions: No Action tizanidine [Zanaflex] 4 mg capsule 4 mg PO TIDP PRN (Reason: Muscle Spasm) spironolactone [Aldactone] 50 mg tablet 50 mg PO DAILY bumetanide 2 mg tablet 2 mg PO DAILY Entresto 24-26 mg tablet 1 tab PO BID pravastatin 10 mg tablet 10 mg PO DAILY Patient Comments: TAKE ONE TABLET BY MOUTH EVERY DAY AT BEDTIME Ozempic 0.25 mg or 0.5 mg (2 mg/3 mL) pen injector 0.5 mg SQ WEEKLY Patient Comments: INJECT 0.25 MG SUBCUTANEOUSLY into THE appropriate AREA DIRECTED 1 time PER WEEK albuterol sulfate [ProAir HFA] 90 mcg/actuation HFA aerosol inhaler 2 puff IH Q4HP PRN (Reason: Shortness Of Breath) promethazine 25 mg tablet 12.5 mg PO Q4HP PRN (Reason: Nausea) omeprazole 20 mg capsule,delayed release(DR/EC) 20 mg PO DAILY Farxiga 10 mg tablet See Rx Instructions .ROUTE .COMPLEX Qty: 90 1RF Dose Instruction: TAKE ONE TABLET BY MOUTH EVERY DAY Rx Instructions: TAKE ONE TABLET BY MOUTH EVERY DAY metformin 1,000 MG tablet 500 mg PO BIDWMEAL nebivolol 5 MG tablet 5 mg PO DAILY tramadol 50 MG tablet 50 - 100 mg PO Q6HP PRN (Reason: Moderate Pain) fluticasone propion-salmeterol 28 PUFFS/50 MCG inhaler 1 puff IH BID ibuprofen 800 MG tablet 800 mg PO TIDP PRN (Reason: Mild Pain,Fever,Headache) acetaminophen 325 MG tablet 650 mg PO Q4HP PRN (Reason: Mild Pain) 0RF prednisone 50 mg tablet 50 mg PO DAILY 5 Days Qty: 5 0RF Referrals Follow up/Referrals: Juarez Griffin MD [Primary Care Provider] - See instructions Clinical Impressions Clinical Impression: Allergic reaction, SIRS (systemic inflammatory response syndrome), Dysuria Discharge ED Provider: Moriah Singh General Adult HPI General Chief complaint: Skin/Abscess/Foreign Body Stated complaint: reaction, swelling in face, beginning to be soa Time Seen by Provider: 02/06/24 02:16 History of Present Illness HPI narrative: This patient is a 48-year-old female with a history of multidrug-resistant urinary tract infection, sepsis, COPD, obesity, CHF, hypertension, and hyperlipidemia presenting to the emergency department for evaluation with concern that she may be having allergic reaction. Patient reports that she just finished up 14 days of Invanz infusions for complicated urinary tract infection 5 days ago. She states that she had been doing okay and had a urine culture sent yesterday as a precaution to check and make sure everything is okay. She notes she woke up with UTI symptoms and took phenazopyridine as well as fluconazole for yeast infection, which she has been on frequently and has taken multiple times in the past. She notes that around 7pm she started having symptoms of an allergic reaction with facial burning and flushing, tongue burning and tingling, and she took Benadryl last night 50 mg around 7:30 PM as well as prednisone 20 mg around 9:30 PM. She took 50 mg of Benadryl again around midnight. She notes this morning, she woke up with chest tightness and her symptoms of the burning and redness were still persistent. She is unsure what she could have been allergic to. She notes that she has a history of allergic reaction in the past but has not had anything new, such as new medications, new detergents, new foods, or other concerns. She denies any associated nausea, vomiting, or changes in bowel movements, but she does still have urinary frequency and urgency and symptoms of a full-blown urinary tract infection. Related Data Home Medications Medication Instructions Recorded Confirmed tizanidine 4 mg capsule (Zanaflex) 4 mg PO TIDP PRN Muscle Spasm 02/22/20 01/27/24 metformin 1,000 mg tablet 500 mg PO BIDWMEAL Diabetes 12/21/21 01/27/24 nebivolol 5 mg tablet 5 mg PO DAILY Hypertension 12/21/21 01/27/24 tramadol 50 mg tablet 50 - 100 mg PO Q6HP PRN Moderate 12/22/21 01/27/24 Pain albuterol sulfate 90 mcg/actuation 2 puff inhalation Q4HP PRN 12/28/21 01/27/24 aerosol inhaler (ProAir HFA) Shortness Of Breath promethazine 25 mg tablet 12.5 mg PO Q4HP PRN Nausea 03/30/22 01/27/24 spironolactone 50 mg tablet 50 mg PO DAILY Fluid 03/30/22 01/27/24 (Aldactone) omeprazole 20 mg capsule,delayed 20 mg PO DAILY GERD 04/24/22 01/27/24 release fluticasone 250 mcg-salmeterol 50 1 puff inhalation BID COPD 04/27/22 01/27/24 mcg/dose blistr powdr for inhalation ibuprofen 800 mg tablet 800 mg PO TIDP PRN Mild 05/01/22 01/27/24 Pain,Fever,Headache bumetanide 2 mg tablet 2 mg PO DAILY 03/04/23 01/27/24 pravastatin 10 mg tablet 10 mg PO DAILY 03/04/23 01/27/24 sacubitril 24 mg-valsartan 26 mg 1 tab PO BID 03/04/23 01/27/24 tablet (Entresto) semaglutide 0.25 mg or 0.5 mg (2 0.5 mg SQ WEEKLY 03/04/23 01/27/24 mg/3 mL) subcutaneous pen injector ([email or web address]) Previous Rx's Medication Instructions Recorded acetaminophen 325 mg tablet 650 mg (2 x 325 mg) PO Q4HP PRN 05/04/22 Mild Pain dapagliflozin propanediol 10 mg See Rx Instructions .Route 01/14/23 tablet (Farxiga) .COMPLEX #90 tabs prednisone 50 mg tablet 50 mg PO DAILY 5 days #5 tabs 01/29/24 Allergies Allergy/AdvReac Type Severity Reaction Status Date / Time aspirin Allergy Severe S-DIFF. Verified 02/06/24 02:36 BREATHING bee venom protein (honey bee) Allergy Severe Anaphylaxis Verified 02/06/24 02:36 Bleach (Sodium Hypochlorite) Allergy Severe diff. Verified 02/06/24 02:36 breathing, dizzy pneumococcal vaccine Allergy Verified 02/06/24 02:36 sulfamethoxazole Allergy Verified 02/06/24 02:36 [From Bactrim] trimethoprim [From Bactrim] Allergy Verified 02/06/24 02:36 sucralose AdvReac Severe breathing Verified 02/06/24 02:36 [From SUCRALOSE (FOOD/DRUG)] problems PFSH [facility] Disclaimer: The information contained in this section may have been updated after the patient was seen, as this information can be updated by other users. Medical History Right flank pain Adnexal mass Septic shock Severe sepsis with acute organ dysfunction Cellulitis of right wrist Pneumonia Asthma with exacerbation Syncope Altered mental status Surgical History S/P right oophorectomy S/P hysterectomy History of tubal ligation Family History Other Alzheimer disease Bipolar 1 disorder Dementia Family history of diabetes mellitus type II Family history of myocardial infarction Lung cancer Lupus Social History Smoking Status: Never smoker second hand exposure: No alcohol intake: current substance use type: denies use current occupational status: unemployed and disabled Travel in the last 8 weeks: None household members: spouse housing: house current occupational exposures/hazards: No caffeine: Yes ROS Obtained: Yes All systems reviewed & no additional complaints except as documented Physical Exam General General appearance: alert, in no apparent distress and obese Head Head exam: atraumatic, normocephalic and other (Erythematous blanching rash to both of the cheeks.) Eye Eye exam: Present normal appearance, PERRL and EOMI ENT ENT exam: Present normal exam, normal oropharynx, mucous membranes moist, normal external ear exam and other (No uvular or pharyngeal edema. No tongue swelling) Neck Neck exam: Present normal inspection, full ROM and trachea midline; Absent tenderness Chest Chest inspection: Present normal inspection and symmetric chest wall rise; Absent tenderness Respiratory Respiratory exam: Present normal lung sounds bilaterally; Absent respiratory distress, wheezes, stridor or accessory muscle use Cardiovascular Cardiovascular exam: Present regular rate and normal rhythm Abdominal Exam Abdominal exam: Present soft; Absent distention, tenderness or guarding Extremities Exam Extremities exam: Present normal inspection, full ROM and normal capillary refill; Absent tenderness or edema Back Exam Back exam: Present normal inspection and full ROM; Absent tenderness Neurological Exam Neurological exam: Present alert, oriented X3, CN II-XII intact and normal gait; Absent motor sensory deficit Psychiatric Psychiatric exam: Present normal affect and normal mood Skin Skin exam: Present warm, dry and rash (Erythematous blanching macular rash to the face as well as a small erythematous blanching macular lesion to the R shoulder. Nonpruritic, but burning. No sloughing or nikolsky sign. No bullae. No mucosal involvement.) Medical Decision Making Medical Records Medical records reviewed: Yes I reviewed the patient's medical records. Harjinder Inquiry Pt receiving controlled substance: No Vital Signs: 02/06/24 02:18 02/06/24 02:45 02/06/24 03:00 Temperature 98.5 F Temperature Source Oral Pulse Rate 89 87 Pulse Rate [Left] 96 H Respiratory Rate 16 Blood Pressure 116/64 111/70 Blood Pressure [Right Arm] 153/84 H Blood Pressure Mean [Right Arm] 107 Blood Pressure Source [Right Arm] Automatic Cuff Blood Pressure Position [Right Arm] Sitting 02 Sat by Pulse Oximetry 97 92 L 94 L Oxygen Delivery Method Room Air 02/06/24 03:30 02/06/24 03:56 02/06/24 03:56 Temperature Temperature Source Pulse Rate 82 99 H 93 H Pulse Rate [Left] Respiratory Rate Blood Pressure 118/69 Blood Pressure [Right Arm] Blood Pressure Mean [Right Arm] Blood Pressure Source [Right Arm] Blood Pressure Position [Right Arm] 02 Sat by Pulse Oximetry 93 L Oxygen Delivery Method 02/06/24 03:56 Temperature Temperature Source Pulse Rate 99 H Pulse Rate [Left] Respiratory Rate Blood Pressure 107/58 L Blood Pressure [Right Arm] Blood Pressure Mean [Right Arm] Blood Pressure Source [Right Arm] Blood Pressure Position [Right Arm] 02 Sat by Pulse Oximetry 98 Oxygen Delivery Method Lab Data Lab results reviewed: Yes I reviewed the patient's lab results. Lab Results 02/06/24 02:28: WBC 15.4 H, RBC 5.22, Hgb 14.6, Hct 46.5, MCV 89.1, MCH 27.9, MCHC 31.4 L, RDW 14.8, Plt Count 369, MPV 8.3, Neut % (Auto) 88.4 H, Lymph % (Auto) 9.1 L, [place] % (Auto) 1.3 L, Eos % (Auto) 0.6, Baso % (Auto) 0.5, Neut # (Auto) 13.6 H, Lymph # (Auto) 1.4, [place] # (Auto) 0.2, Eos # (Auto) 0.1, Baso # (Auto) 0.1, Total Counted 100, Neutrophils % (Manual) 89 H, Lymphocytes % (Manual) 9 L, Monocytes % (Manual) 2, Platelet Estimate Normal, RBC Morphology Not Reportable, Hypochromasia 1+, Sodium 139, Potassium 4.2, Chloride 110 H, Carbon Dioxide 22, Anion Gap 11.2, BUN 15, Creatinine 0.90, Estimated Creat Clear 62, Estimated GFR 66, Est GFR ( Amer) 80, Glucose 241 H, Lactate 2.5 H, Calcium 9.7, Total Bilirubin 0.4, AST 39 H, ALT 69, Alkaline Phosphatase 92, Troponin I < 0.01, Total Protein 6.6, Albumin 3.5, Globulin 3.1, Albumin/Globulin Ratio 1.1 02/06/24 02:31: SARS-CoV-2 (PCR) Not detected, Influenza A Untype (PCR) Not detected, Influenza Type B (PCR) Not detected 02/06/24 02:28 02/06/24 02:28 Orders (Tests/Meds): ED MEDICATIONS Generic Name Dose Route Start Last Admin Trade Name Freq PRN Reason Stop Dose Admin Ertapenem 1 gm/ Sodium 50 mls @ 100 mls/hr 02/06/24 04:30 Chloride IV 02/16/24 04:29 Q24H ARINA Sodium Chloride 8 ml 02/06/24 02:18 Sodium Chloride 0.9% 10ml Vial IV 03/07/24 02:17 NEEDED PRN dilute pepcid Discontinued Medications Generic Name Dose Route Start Last Admin Trade Name Freq PRN Reason Stop Dose Admin Albuterol/Ipratropium 6 ml 02/06/24 03:21 02/06/24 03:45 Ipratropium/Albuterol 3 Ml Neb IH 02/06/24 03:22 6 ml ONCE ONE Administration Diphenhydramine HCl 50 mg 02/06/24 02:18 02/06/24 02:47 Diphenhydramine 50mg/Ml Vial IV 02/06/24 02:19 50 mg ONCE ONE Administration Famotidine 20 mg 02/06/24 02:18 02/06/24 02:47 Famotidine 20mg/2ml Vial IV 02/06/24 02:19 20 mg ONCE ONE Administration Lactated Ringer's 1,000 mls @ 999 mls/hr 02/06/24 02:18 02/06/24 02:48 Lactated Ringer's 1000 Ml Bag IV 02/06/24 03:18 999 mls/hr .Q1H1M ONE Administration Methylprednisolone Sodium Succinate 125 mg 02/06/24 02:18 02/06/24 02:47 Methylprednisolone Sod Succ 125mg Vial IV 02/06/24 02:19 125 mg ONCE ONE Administration ORDERS Category Date Time Status Complete Blood Count Auto Diff Stat Lab 02/06/24 02:28 Completed Comprehensive Metabolic Panel Stat Lab 02/06/24 02:28 Completed Lactic Acid Stat Lab 02/06/24 02:28 Completed Rapid PCR Covid and Flu A/B Stat Lab 02/06/24 02:31 Completed Troponin I Q3H Lab 02/06/24 05:30 Ordered Troponin I Q3H Lab 02/06/24 08:30 Ordered Troponin I Stat Lab 02/06/24 02:28 Completed Urinalysis and Microscopic Stat Lab 02/06/24 02:16 Ordered Blood Culture Stat Micro 02/06/24 04:18 Received Urine Culture Stat Micro 02/06/24 02:16 Ordered ECG Data Tracing #1: I reviewed this ECG and interpreted as documented below: Normal sinus rhythm with a ventricular rate of 70 bpm. No significant changes noted from prior EKG. ECG initial impression date: 02/06/24 ECG initial impression time: 02:37 Tracing #2: I reviewed this ECG and interpreted as documented below: Normal sinus rhythm with a ventricular rate of 91 bpm. No significant changes noted from prior EKG. ECG initial impression date: 02/06/24 ECG initial impression time: 02:37 Medical Decision Narrative: In summary, this patient is a 48-year-old female presenting to the Emergency Department for evaluation of burning erythematous macular rash to the face, chest tightness, and oropharyngeal burning and tingling that she believes is an allergic reaction. Differential diagnoses considered include but are not limited to allergic reaction, drug eruption, anaphylaxis, viral syndrome, viral rash, SJS, TEN, sepsis. Ruling out the most morbid conditions drove assessment. On exam, the patient is nontoxic-appearing and afebrile. She has reassuring vital signs on cardiac telemetry. Her exam is not concerning for rashes such as SJS or TEN. She has mild erythematous blanching macular rash to face and R shoulder, but no sloughing, bullae, or mucosal involvement. She can't think of any potentially new inciting factors, though she did take Azo and fluconazole, but she has done this multiple times before. No concern for true anaphylaxis at this time based on exam. Workup included CBC, CMP, troponin, lactic acid, blood culture, urinalysis, urine culture, EKG, and viral swab. She is given a bolus of IV fluids as well as IV Benadryl, methylprednisolone, and Pepcid. She was also given DuoNebs. On reassessment, patient had significant improvement after administration of interventions above. She is resting comfortably with resolved rash and is no longer having symptoms of allergic reaction. She does, however, still have dysuria. We have unfortunately been unable to collect a urine sample at this time, and her culture from her PCPs office is still pending. I do see her prior culture from December, which showed a multidrug-resistant urinary tract infection that was only susceptible to Bactrim orally, which she is allergic to. Otherwise, only IV medications. Patient was found to have a an elevated white blood cell count, which could be explained away in the setting of chronic steroid use, however she also has mildly elevated lactic acid. She also has tachycardia with a heart rate in the 90s. I had a discussion with the patient regarding potential for going home with cultures pending, but she does not feel comfortable with this. Given this, had an interactive discussion with the hospitalist who agreed to admit the patient with concerns for SIRS + in setting of possible UTI. She is agreeable given the patient's history, I did start her on Invanz. She is given a liter bolus of IV fluids but was not given full sepsis bolus given history of obesity as well as CHF. She was admitted in stable condition. Critical Care Critical Care Time Critical Care Time: No
--- NOTE | 2024-02-06 02:35 | ECG_ITS ---
APPROVED REPORT Exam: Resting ECG HR:70 bpm ECG Measurements Heart Rate 70 AXES CO 165 P 52 QRSd 88 QRS 87 QT 364 T 64 QTc 384 Conclusion SINUS RHYTHM Electronically signed by : RICKIE MCKEON, 02/06/2024 14:59:58
--- NOTE | 2024-02-06 02:36 | PC.NURSE ---
patient back from radiology
--- NOTE | 2024-02-06 02:36 | ECG_ITS ---
APPROVED REPORT Exam: Resting ECG HR:91 bpm ECG Measurements Heart Rate 91 AXES GA 162 P 50 QRSd 88 QRS 87 QT 359 T 60 QTc 408 Conclusion SINUS RHYTHM LOW QRS VOLTAGE IN PRECORDIAL LEADS [QRS DEFLECTION < 1.0 mV IN CHEST LEADS] Patient has chronic ST elevations, which are unchanged from previous EKG Electronically signed by : BONNY CADE, 02/06/2024 06:47:05
[2024-02-06 02:40] LABS: Coronavirus 19, PCR Not Detected (NotDetected); Influenza A, PCR Not Detected (NotDetected); Influenza B, PCR Not Detected (NotDetected)
[2024-02-06 02:41] LABS: Basophils # 0.1 K/mm3 (0-0.2); Basophils % 0.5 % (0.1-2.0); Eosinophils # 0.1 K/mm3 (0.0-0.4); Eosinophils % 0.6 % (0.1-12.0); Hematocrit 46.5 % (37.0-47.0); Hemoglobin 14.6 g/dL (12.2-16.2); Lymphocytes # 1.4 K/mm3 (0.7-4.5); Lymphocytes % 9.1 % (10-50); Mean Corpuscular HGB Conc 31.4 g/dL (31.8-35.4); Mean Corpuscular Hemoglobin 27.9 pg (27.0-31.2); Mean Corpuscular Volume 89.1 fl (81-99); Mean Platelet Volume 8.3 fl (7.4-10.4); Monocytes # 0.2 K/mm3 (0.1-1.0); Monocytes % 1.3 % (1.7-9.3); Neutrophils # 13.6 K/mm3 (1.8-7.8); Neutrophils % 88.4 % (37.0-80.0); Platelet Count 369 K/mm3 (142-424); Red Blood Count 5.22 M/mm3 (4.20-5.40); Red Cell Distribution Width 14.8 % (11.5-17.5); White Blood Count 15.4 K/mm3 (4.8-10.8)
[2024-02-06 02:42] LABS: MANUAL DIFFERENTIAL MANUAL DIFFERENTIAL (MANUAL DIFF)
[2024-02-06 02:44] LABS: Chloride 110 mmol/L (98-107); Potassium 4.2 mmoL/L (3.5-5.1); Sodium 139 mmol/L (136-145)
[2024-02-06 02:47] LABS: Alanine Aminotransferase 69 U/L (12-78); Albumin Level 3.5 g/dl (3.5-5.0); Albumin/Globulin Ratio 1.1 (1.1-1.8); Alkaline Phosphatase 92 U/L (38-126); Anion Gap 11.2 mEq/L (5-15); Aspartate Amino Transferase 39 U/L (14-36); Bilirubin,Total 0.4 mg/dl (0.2-1.3); Blood Urea Nitrogen 15 mg/dl (7-17); Carbon Dioxide 22 mmol/L (22.0-30.0); Creatinine Clearance Estimated 62 mL/min (50-200); Estimated Glomerular Filt Rate 66 ml/min (>60); GFR (African American) 80 ML/MIN (>60); Globulin 3.1 g/dL (1.3-3.2); Total Protein,Serum 6.6 g/dl (6.3-8.2)
[2024-02-06] MEDS: FAMOTIDINE 20MG/2ML VIAL 20 MG IV ×2 (02:47→06:34)
[2024-02-06] MEDS: METHYLPREDNISOLONE SOD SUCC 125MG VIAL 125 MG IV (02:47)
[2024-02-06] MEDS: diphenhydrAMINE 50MG/ML VIAL 50 MG IV (02:47)
[2024-02-06 02:48] LABS: Calcium 9.7 mg/dl (8.4-10.2); Glucose 241 mg/dl (74-100)
[2024-02-06] MEDS: LACTATED RINGERS 1000ML 1,000 ML 999 ML IV (02:48)
[2024-02-06 02:50] LABS: Lactic Acid 2.5 mmol/L (0.7-2.1)
[2024-02-06 02:57] LABS: Hypochromasia 1+; Lymphocytes % 9 % (10-50); Monocytes % 2 % (2-9); Neutrophils % 89 % (42-76); Platelet Estimate Normal; Total Cells Counted 100
[2024-02-06 03:00] LABS: Troponin I < 0.01 ng/ml (0.00-0.034)
[2024-02-06] MEDS: IPRATROPIUM/ALBUTEROL 3 ML NEB 6 ML IH (03:45)
--- NOTE | 2024-02-06 04:01 | PC.NURSE ---
patient assisted to bathroom and back to bed
--- NOTE | 2024-02-06 04:21 | PC.NURSE ---
second set of blood cultures sent to lab at this time
--- NOTE | 2024-02-06 04:29 | PC.NURSE ---
I called to request a bed for admission to the hospitalist for UTI
--- NOTE | 2024-02-06 04:32 | PC.NURSE ---
pt admitted to room 212 to hospitalist for UTI; observation status.
[2024-02-06] MEDS: ERTAPENEM SODIUM 1 GM in 0.9 % SODIUM CHLORIDE 50 ML IV (04:45)
--- NOTE | 2024-02-06 04:47 | PC.NURSE ---
Report called to Lynnette DANIEL.
--- NOTE | 2024-02-06 05:10 | P.HP_ITS ---
History of Present Illness *Admission Date: 02/06/24 *Reason for visit:: Dysuria *History of present illness: This is a 48-year-old female with a past medical history of recurrent UTIs with history of MDRO ESBL, COPD, obesity, diastolic heart failure, RA who presents emergency department with initial complaints of facial flushing, throat swelling and hives. She reports also history of MDRO urinary tract infection rash. She states 5 days ago she completed a 14-day course of ertapenem infusions for complicated urinary tract infection. States she was doing okay until last night when she developed dysuria again and woke up this morning with severe suprapubic pain, dysuria and left flank pain. Yesterday when her pain began she sought treatment at her primary care doctor's office where they sent urine culture for follow-up. At that time they prescribed antifungal medications and Pyridium for her pain. Shortly after that she developed facial flushing, mild hives, swelling of lips and tongue. She states that she took 50 mg of Benadryl and symptoms abated slightly but woke up with chest tightness and redness of her face was worsening. States that due to this current allergic type reaction and continued concerns for urinary tract infection, [facility] Upon arrival to the emergency department she did have facial flushing. She underwent DuoNeb treatment, Solu-Medrol, Pepcid and Benadryl with improvement in symptoms. Intermittent chronic steroids for COPD. Will also count of 15 but patient is also on intermittent chronic steroids for COPD. She did develop repeat flushing and tingling of her upper lip so given the repeat allergic reaction symptoms and continued pain, she felt that she would benefit from hospitalization. She is admitted to the hospital service for further evaluation and management [facility] Disclaimer: The information contained in this section may have been updated after the patient was seen, as this information can be updated by other users. Medical History (Updated 02/06/24 @ 16:30 by Alexys Matias MD) Syncopal episodes Right flank pain Adnexal mass Septic shock Severe sepsis with acute organ dysfunction Cellulitis of right wrist Pneumonia Asthma with exacerbation Syncope Altered mental status Surgical History (Updated 02/06/24 @ 05:21 by Lynnette Cevallos RN) History of cholecystectomy S/P right oophorectomy S/P hysterectomy History of tubal ligation Family History Other Alzheimer disease Bipolar 1 disorder Dementia Family history of diabetes mellitus type II Family history of myocardial infarction Lung cancer Lupus Social History (Updated 02/06/24 @ 05:22 by Lynnette Cevallos RN) Smoking Status: Never smoker second hand exposure: No alcohol intake: current substance use type: denies use current occupational status: unemployed and disabled Travel in the last 8 weeks: None household members: spouse housing: house current occupational exposures/hazards: No caffeine: Yes Review of Systems Constitutional Constitutional: Reports as per HPI Eyes Eyes: Reports as per HPI ENT Ears, Nose, Mouth, and Throat: Reports as per HPI *Cardiovascular Cardiovascular: Reports as per HPI *Respiratory Respiratory: Reports as per HPI *Gastrointestinal Gastrointestinal: Reports as per HPI *Genitourinary Genitourinary: Reports as per HPI *Musculoskeletal Musculoskeletal: Reports as per HPI Integumentary/Breasts Skin/Breast: Reports as per HPI *Neurologic Neurologic: Reports as per HPI Psychiatric Psychiatric: Reports as per HPI Endocrine Endocrine: Reports as per HPI Hematologic/Lymphatic Hematologic/Lymphatic: Reports as per HPI Meds Home Medications and Allergies Home Medications Medication Instructions Recorded Confirmed Type tizanidine 4 mg capsule (Zanaflex) 4 mg PO TIDP PRN Muscle Spasm 02/22/20 02/06/24 History nebivolol 5 mg tablet 5 mg PO DAILY 12/21/21 02/06/24 History tramadol 50 mg tablet 100 mg PO Q6HP PRN Moderate Pain 12/22/21 02/06/24 History albuterol sulfate 90 mcg/actuation 2 puff inhalation Q4HP PRN 12/28/21 02/06/24 History aerosol inhaler (ProAir HFA) Shortness Of Breath promethazine 25 mg tablet 12.5 mg PO Q4HP PRN Nausea 03/30/22 02/06/24 History spironolactone 50 mg tablet 50 mg PO DAILY 03/30/22 02/06/24 History (Aldactone) omeprazole 20 mg capsule,delayed 20 mg PO DAILY 04/24/22 02/06/24 History release fluticasone 250 mcg-salmeterol 50 1 puff inhalation BID 04/27/22 02/06/24 History mcg/dose blistr powdr for inhalation ibuprofen 800 mg tablet 800 mg PO TIDP PRN Mild 05/01/22 02/06/24 History Pain,Fever,Headache acetaminophen 325 mg tablet 650 mg (2 x 325 mg) PO Q4HP PRN 05/04/22 02/06/24 Rx Mild Pain bumetanide 2 mg tablet 2 mg PO BID 03/04/23 02/06/24 History pravastatin 10 mg tablet 10 mg PO DAILY 03/04/23 02/06/24 History sacubitril 24 mg-valsartan 26 mg 1 tab PO BID 03/04/23 02/06/24 History tablet (Entresto) ascorbic acid (vitamin C) 500 mg 500 mg PO DAILY 02/06/24 02/06/24 History tablet (Vitamin C) cetirizine 10 mg tablet (Zyrtec) 10 mg PO DAILY 02/06/24 02/06/24 History empagliflozin 25 mg-linagliptin 5 1 tab PO AM 02/06/24 02/06/24 History mg tablet (Glyxambi) ertapenem 1 gram solution for 1 g IV Q24H 13 days #0 ea 02/06/24 Rx injection ipratropium 0.5 mg-albuterol 3 mg 3 ml inhalation QID 02/06/24 02/06/24 History (2.5 mg base)/3 mL nebulization soln metformin 500 mg tablet 500 mg PO BIDWMEAL 02/06/24 02/06/24 History methenamine hippurate 1 gram tablet 1 g PO BID 02/06/24 02/06/24 History montelukast 10 mg tablet 10 mg PO HS 02/06/24 02/06/24 History (Singulair) phenazopyridine 200 mg tablet 200 mg PO TID 02/06/24 02/06/24 History New Prescriptions to Start Prescriptions: Allergies Allergy/AdvReac Type Severity Reaction Status Date / Time aspirin Allergy Severe S-DIFF. Verified 02/06/24 02:36 BREATHING bee venom protein (honey bee) Allergy Severe Anaphylaxis Verified 02/06/24 02:36 Bleach (Sodium Hypochlorite) Allergy Severe diff. Verified 02/06/24 02:36 breathing, dizzy pneumococcal vaccine Allergy Verified 02/06/24 02:36 sulfamethoxazole Allergy Verified 02/06/24 02:36 [From Bactrim] trimethoprim [From Bactrim] Allergy Verified 02/06/24 02:36 sucralose AdvReac Severe breathing Verified 02/06/24 02:36 [From SUCRALOSE (FOOD/DRUG)] problems Exam Data for Last 24 hours Vital signs and Labs for Last 24 Hours: Temp Pulse Resp BP Pulse Ox O2 Del Method 98.5 F 99 H 16 107/58 L 98 Room Air 02/06/24 02:18 02/06/24 03:56 02/06/24 02:18 02/06/24 03:56 02/06/24 03:56 02/06/24 02:18 Laboratory Results - last 24 hr 02/06/24 02:28: WBC 15.4 H, RBC 5.22, Hgb 14.6, Hct 46.5, MCV 89.1, MCH 27.9, MCHC 31.4 L, RDW 14.8, Plt Count 369, MPV 8.3, Neut % (Auto) 88.4 H, Lymph % (Auto) 9.1 L, Kane % (Auto) 1.3 L, Eos % (Auto) 0.6, Baso % (Auto) 0.5, Neut # (Auto) 13.6 H, Lymph # (Auto) 1.4, Kane # (Auto) 0.2, Eos # (Auto) 0.1, Baso # (Auto) 0.1, Total Counted 100, Neutrophils % (Manual) 89 H, Lymphocytes % (Manual) 9 L, Monocytes % (Manual) 2, Platelet Estimate Normal, RBC Morphology Not Reportable, Hypochromasia 1+, Sodium 139, Potassium 4.2, Chloride 110 H, Carbon Dioxide 22, Anion Gap 11.2, BUN 15, Creatinine 0.90, Estimated Creat Clear 62, Estimated GFR 66, Est GFR ( Amer) 80, Glucose 241 H, Lactate 2.5 H, Calcium 9.7, Total Bilirubin 0.4, AST 39 H, ALT 69, Alkaline Phosphatase 92, Troponin I < 0.01, Total Protein 6.6, Albumin 3.5, Globulin 3.1, Albumi n/Globulin Ratio 1.1 02/06/24 02:31: SARS-CoV-2 (PCR) Not detected, Influenza A Untype (PCR) Not detected, Influenza Type B (PCR) Not detected I & O for Last 24 hours: Intake & Output 02/03/24 02/04/24 02/05/24 02/06/24 23:59 23:59 23:59 23:59 Weight 127.006 kg Constitutional Constitutional: no acute distress *Routine HEENT Exam Head: Present normocephalic Eye: Present EOMI ENT: Present mucous membranes moist Comments: Swelling to upper lip *Routine Neck Exam Neck: Present supple and full ROM *Routine Respiratory Exam Respiratory: Present CTA bilaterally *Routine Cardiovascular Exam Cardiovascular: Present RRR, Normal S1 and Normal S2 *Routine Abdominal Exam Abdominal: Present soft and normoactive bowel sounds *Routine Rectal Exam Rectal:: deferred *Routine Genitalia Exam Genitalia:: normal male and deferred *Routine Extremities Exam Extremities: Present full ROM, pulses intact and normal capillary refill *Routine Skin Exam Comments: Facial flushing noted, mild *Routine Neurological Exam Neurological: Present alert, oriented X3 and CN II-XII intact Assessment and Plan *Assessment and plan (1) UTI (urinary tract infection): Status: Acute Category: Medical Code(s): N39.0 - Urinary tract infection, site not specified (2) Bilateral nephrolithiasis: Status: Acute Category: Medical Code(s): N20.0 - Calculus of kidney (3) Dysuria: Status: Acute Category: Medical Code(s): R30.0 - Dysuria (4) SIRS (systemic inflammatory response syndrome): Status: Acute Category: Medical Code(s): R65.10 - Systemic inflammatory response syndrome (SIRS) of non-infectious origin without acute organ dysfunction (5) Allergic reaction: Status: Acute Qualifiers: Encounter type: initial encounter Qualified Code(s): T78.40XA - Allergy, unspecified, initial encounter Category: Medical Code(s): T78.40XA - Allergy, unspecified, initial encounter (6) BMI 45.0-49.9, adult: Status: Acute Category: Medical Code(s): Z68.42 - Body mass index [BMI] 45.0-49.9, adult (7) Obesity: Status: Acute Qualifiers: Body mass index: BMI 45.0-49.9 Obesity classification: adult class 3 (BMI >= 40) Obesity type: due to excess calories Serious obesity comorbidity presence: with serious comorbidity Qualified Code(s): E66.01 - Morbid (severe) obesity due to excess calories; Z68.42 - Body mass index [BMI] 45.0-49.9, adult Category: Medical Code(s): E66.9 - Obesity, unspecified (8) HTN (hypertension): Status: Chronic Qualifiers: Hypertension type: essential hypertension Qualified Code(s): I10 - Essential (primary) hypertension Category: Medical Code(s): I10 - Essential (primary) hypertension Plan 48-year-old female who just completed treatment for multidrug-resistant UTI. Presents with symptoms concerning for recurrent UTI along with rash and symptoms concerning for allergic reaction. ER consulted medicine for admission to treat allergic reaction and infection. Medicine agreed to admit for further management. Problems addressed as follows: # Allergic reaction Noted facial flushing and mild upper lip swelling. Reports only new medications have been peritoneum and oral antifungal Will continue corticosteroids, as needed nebulizers and Pepcid Monitor airway # History of acute cystitis with MDRO ESBL #SIRS (leukocytosis and Lactic Acid elevation) # UTI Urinalysis abnormal with elevated white cells and 4+ bacteria. Culture sent from PCPs office on 02/04/2024, follow-up Prior culture data from December with greater than 100,000 CFU for Proteus mirabilis, MDRO likely ESBL susceptible to Carbapenems Was on 14 day injection of Ertepeneum, received these in outpatient setting daily. Did not have MIDLINE/PICC line Continue Ertepenem and await culture data #COPD stable Continue PRN nebulizer treatments concurrently for Allergic Reaction #RA #Chronic Pain Continue Motrin and Tramadol DVT ppx Lovenox Full Code Rounded on patient after nurse practitioner. Personally examined and interviewed patient. Agree with exam findings and care plan as documented.
--- NOTE | 2024-02-06 05:12 | PC.NURSE ---
Patient arrived to floor via wheelchair from ED at 5:02.
[2024-02-06 05:29] LABS: Microscopic, Urine URINE MICROSCOPIC (MICROSCOPIC)
[2024-02-06 05:34] LABS: Appearance,Urine CLEAR (Clear); Bilirubin,Urine Negative (Negative); Blood, Urine 1+ (Negative); Color,Urine ORANGE (Yellow); Glucose,Urine (UA) 3+ (Negative); Ketones,Urine TRACE (Negative); Leukocyte Esterase,Urine Negative (Negative); Nitrate,Urine POSITIVE (Negative); Protein,Urine TRACE (Negative)
[2024-02-06 05:46] LABS: Bacteria,Urine 1+ /lpf; WBC,Urine 20-50 #/hpf (0-3)
[2024-02-06] MEDS: HEPARIN SODIUM 5,000 UNIT/ML VIAL 5000 UNIT SQ ×2 (06:33→13:03)
[2024-02-06] MEDS: 0.9 % SODIUM CHLORIDE 1000ML 1,000 ML 75 ML IV (06:33)
[2024-02-06 06:34] LABS: Basophils # 0.1 K/mm3 (0-0.2); Basophils % 0.3 % (0.1-2.0); Eosinophils % 0.1 % (0.1-12.0); Hematocrit 46.9 % (37.0-47.0); Hemoglobin 14.4 g/dL (12.2-16.2); Lymphocytes # 0.8 K/mm3 (0.7-4.5); Lymphocytes % 5.9 % (10-50); Mean Corpuscular HGB Conc 30.7 g/dL (31.8-35.4); Mean Corpuscular Hemoglobin 27.9 pg (27.0-31.2); Mean Corpuscular Volume 90.6 fl (81-99); Mean Platelet Volume 8.2 fl (7.4-10.4); Monocytes # 0.1 K/mm3 (0.1-1.0); Neutrophils # 13.2 K/mm3 (1.8-7.8); Neutrophils % 92.6 % (37.0-80.0); Platelet Count 333 K/mm3 (142-424); Red Blood Count 5.18 M/mm3 (4.20-5.40); Red Cell Distribution Width 14.8 % (11.5-17.5); White Blood Count 14.2 K/mm3 (4.8-10.8)
[2024-02-06] MEDS: diphenhydrAMINE 50MG/ML VIAL 25 MG IV (06:34)
[2024-02-06 06:36] LABS: Reflex Lactic Add Lactic Reflex
[2024-02-06 06:50] LABS: Troponin I < 0.01 ng/ml (0.00-0.034)
[2024-02-06 07:00] LABS: Chloride 109 mmol/L (98-107); Potassium 4.2 mmoL/L (3.5-5.1); Sodium 139 mmol/L (136-145)
[2024-02-06 07:03] LABS: Anion Gap 12.2 mEq/L (5-15); Blood Urea Nitrogen 16 mg/dl (7-17); Carbon Dioxide 22 mmol/L (22.0-30.0); Creatinine Clearance Estimated 67 mL/min (50-200); Estimated Glomerular Filt Rate 76 ml/min (>60); GFR (African American) 92 ML/MIN (>60)
[2024-02-06 07:04] LABS: Calcium 9.6 mg/dl (8.4-10.2); Glucose 233 mg/dl (74-100)
[2024-02-06] MEDS: IBUPROFEN 400 MG TABLET PO (07:09)
[2024-02-06] MEDS: TRAMADOL 50MG TABLET 50 MG PO (07:09)
--- NOTE | 2024-02-06 07:43 | HMH.PHAINT1 ---
Pharmacy Intervention Comments: HOME MEDICATION LIST VERIFIED VIA OUTSIDE PHARMACY AND PATIENT
[2024-02-06] MEDS: predniSONE 20MG TAB 20 MG PO (08:15)
[2024-02-06 08:36] LABS: Lactic Acid Follow Up (RFLX 1) 3.4 mmol/L (0.7-2.1)
[2024-02-06 09:02] LABS: Troponin I < 0.01 ng/ml (0.00-0.034)
--- NOTE | 2024-02-06 09:25 | CT_ITS ---
FINAL REPORT TECHNIQUE: Axial images through the abdomen and pelvis were performed without contrast. This study was performed with techniques to keep radiation doses as low as reasonably achievable, (ALARA). Individualized dose reduction techniques using automated exposure control or adjustment of mA and/or kV according to the patient's size were employed. CLINICAL HISTORY: eval stones, hydronephrosis COMPARISON: 12/26/2023 FINDINGS: ABDOMEN: There is mild atelectasis or scar in the lung bases. The heart size is normal. There is fatty infiltration of the liver. The patient is status post cholecystectomy. The spleen is normal. No adrenal mass is identified. The aorta is normal in caliber. There is no significant free fluid or adenopathy. There is a 2.9 cm nonobstructing stone in the right renal pelvis. Multiple nonobstructing left renal stones are seen measuring up to 16 mm. There is no evidence of hydronephrosis. The proximal left ureteral stone is no longer visualized. PELVIS: The appendix is normal. There is a 10 cm cystic mass in the right iliac fossa of uncertain etiology, could be ovarian in origin or other cystic mass. Patient is status post hysterectomy. In addition, there is a 4.8 cm cystic left adnexal mass, previously measured 2.6 cm. This may represent an ovarian cyst. No ureteral stones are identified. The urinary bladder is unremarkable. There is no significant free fluid or adenopathy. IMPRESSION: Nonobstructing left renal stones. Previously identified left ureteral stone is no longer visualized. Improved hydronephrosis. Cystic mass in the right iliac fossa, may be ovarian in origin or other cystic mass. Left adnexal mass, may represent ovarian cyst. If indicated, pelvic ultrasound may be helpful. Reviewed, Interpreted and Dictated by Clinton Argueta III, MD Transcribed by Terri Davis Authenticated and [facility]
[2024-02-06 10:08] LABS: Reflex Lactic (2 hrs) Add Lactic Reflex
[2024-02-06 10:23] LABS: Hemoglobin A1C 6.6 % (4.0-6.0)
--- NOTE | 2024-02-06 11:13 | SW/DCPLANNER ---
The plan for this patient is to return to [facility] for 13 more days of IV antibiotics. Patient stated that she would have transportation and will discharge home this afternoon.
--- NOTE | 2024-02-06 11:15 | XR_ITS ---
FINAL REPORT CLINICAL HISTORY: Confirm PICC line placement COMPARISON: 04/17/2019 FINDINGS: SINGLE-VIEW CHEST The heart size is normal. The mediastinum is normal. Left PICC line tip terminates in the upper SVC. The lungs are clear. There is no pneumothorax. IMPRESSION: Left PICC line tip terminates in the upper SVC. Reviewed, Interpreted and Dictated by Clinton Argueta III, MD Transcribed by Terri Davis Authenticated and [facility]
[2024-02-06 11:16] LABS: Lactic Acid Follow up (RFLX 2) 3.3 mmol/L (0.7-2.1)
[2024-02-06] MEDS: humaLOG 100 UNITS/ML 3ML VIAL (SSI) SQ (11:17)
[2024-02-06 11:21] LABS: POC Glucose,Bedside 248 (70-110)
[2024-02-06] MEDS: IPRATROPIUM/ALBUTEROL 3 ML NEB IH (14:36)
--- NOTE | 2024-02-06 16:27 | P.DS_ITS ---
General Admission date:: 02/06/24 Discharge date: 02/06/24 HPI HPI HPI: This is a 48-year-old female with a past medical history of recurrent UTIs with history of MDRO ESBL, COPD, obesity, diastolic heart failure, RA who presents emergency department with initial complaints of facial flushing, throat swelling and hives. She reports also history of MDRO urinary tract infection rash. She states 5 days ago she completed a 14-day course of ertapenem infusions for complicated urinary tract infection. States she was doing okay until last night when she developed dysuria again and woke up this morning with severe suprapubic pain, dysuria and left flank pain. Yesterday when her pain began she sought treatment at her primary care doctor's office where they sent urine culture for follow-up. At that time they prescribed antifungal medications and Pyridium for her pain. Shortly after that she developed facial flushing, mild hives, swelling of lips and tongue. She states that she took 50 mg of Benadryl and symptoms abated slightly but woke up with chest tightness and redness of her face was worsening. States that due to this current allergic type reaction and continued concerns for urinary tract infection, she decided to seek treatment emergency department Upon arrival to the emergency department she did have facial flushing. She underwent DuoNeb treatment, Solu-Medrol, Pepcid and Benadryl with improvement in symptoms. Intermittent chronic steroids for COPD. Will also count of 15 but patient is also on intermittent chronic steroids for COPD. She did develop repeat flushing and tingling of her upper lip so given the repeat allergic reaction symptoms and continued pain, she felt that she would benefit from hospitalization. She is admitted to the hospital service for further evaluation and management Hospital Course Hospital Course Hospital Course: 48-year-old female who just completed treatment for multidrug-resistant UTI. Presents with symptoms concerning for recurrent UTI along with rash and symptoms concerning for allergic reaction. ER consulted medicine for admission to treat allergic reaction and infection. Medicine agreed to admit for further management. Patient remained hemodynamically stable during admission. White cell count stable but slightly elevated at 14.2. No fevers overnight. Stable to discharge home to continue IV antibiotics while we await finalized urine cultures. Needs referral to urology with her kidney stones. Problems addressed as follows: # History of acute cystitis with MDRO ESBL #SIRS (leukocytosis and Lactic Acid elevation) # UTI # Bilateral nephrolithiasis Urinalysis grossly abnormal with elevated white cells and 4+ bacteria. Recently finished 14-day course of ertapenem for multidrug-resistant Proteus. Initiated on ertapenem during admission given previous sensitivity. Urine culture obtained and pending prior to admission by PCP and repeated on admission. CT of abdomen obtained showing large kidney stone in right renal pelvis and smaller stones in the left. No obstructions however. No hydronephrosis. Given recur rence of symptoms, presence of stones, resistant organisms, have strong concern that her stones may be colonized and they are a source for recurrent infection. Is my opinion that she needs evaluation by urology for possible lithotripsy versus surgical removal of stones. Have concerned that she is at risk for recurrent infections until stones are addressed. Referral placed for Dr. Chacko at [facility] for further evaluation and management. PICC line was placed on 02/05. Patient has been set up to receive 13 more doses (total of 14 doses) of ertapenem 1 g daily IV. Okay to remove PICC after completion of antibiotic course. # Allergic reaction Noted facial flushing and mild upper lip swelling. Reports only new medications have been Pyridium and oral antifungal. Symptoms resolved by morning. No indication for further treatment at this time. Recommended she avoid Pyridium at this time. Stable airway. No respiratory distress. Stable on room air. No notable rash on morning of discharge. #COPD stable Continue PRN nebulizer treatments concurrently for Allergic Reaction #RA #Chronic Pain Continue Motrin and Tramadol Total time spent on discharge 38 minutes in counseling, documentation, chart review, and direct care with patient. Exam Data for Last 24 hours Vital signs and Labs for Last 24 Hours: Temp Pulse Resp BP Pulse Ox O2 Del Method 98.1 F 82 16 121/53 L 96 Room Air 02/06/24 16:00 02/06/24 16:00 02/06/24 16:00 02/06/24 16:00 02/06/24 16:00 02/06/24 16:00 Laboratory Results - last 24 hr 02/06/24 02:28: WBC 15.4 H, RBC 5.22, Hgb 14.6, Hct 46.5, MCV 89.1, MCH 27.9, MCHC 31.4 L, RDW 14.8, Plt Count 369, MPV 8.3, Neut % (Auto) 88.4 H, Lymph % (Auto) 9.1 L, [place] % (Auto) 1.3 L, Eos % (Auto) 0.6, Baso % (Auto) 0.5, Neut # (Auto) 13.6 H, Lymph # (Auto) 1.4, [place] # (Auto) 0.2, Eos # (Auto) 0.1, Baso # (Auto) 0.1, Total Counted 100, Neutrophils % (Manual) 89 H, Lymphocytes % (Manual) 9 L, Monocytes % (Manual) 2, Platelet Estimate Normal, RBC Morphology Not Reportable, Hypochromasia 1+, Sodium 139, Potassium 4.2, Chloride 110 H, Carbon Dioxide 22, Anion Gap 11.2, BUN 15, Creatinine 0.90, Estimated Creat Clear 62, Estimated GFR 66, Est GFR ( Amer) 80, Glucose 241 H, Lactate 2.5 H, Calcium 9.7, Total Bilirubin 0.4, AST 39 H, ALT 69, Alkaline Phosphatase 92, Troponin I < 0.01, Total Protein 6.6, Albumin 3.5, Globulin 3.1, Albumin/Globulin Ratio 1.1 02/06/24 02:31: SARS-CoV-2 (PCR) Not detected, Influenza A Untype (PCR) Not detected, Influenza Type B (PCR) Not detected 02/06/24 04:20: Urine Color [place], Urine Appearance Clear, Urine pH 6.0, Ur Specific [place] 1.020, Urine Protein Trace, Urine Glucose (UA) 3+, Urine Ketones Trace, Urine Blood 1+, Urine Nitrate Positive, Urine Bilirubin Negative, Urine Urobilinogen 1.0, Ur Leukocyte Esterase Negative, Urine RBC 3-5, Urine WBC 20-50, Ur Squamous Epith Cells 5-10, Urine Bacteria 1+ 02/06/24 05:53: WBC 14.2 H, RBC 5.18, Hgb 14.4, Hct 46.9, MCV 90.6, MCH 27.9, MCHC 30.7 L, RDW 14.8, Plt Count 333, MPV 8.2, Neut % (Auto) 92.6 H, Lymph % (Auto) 5.9 L, [place] % (Auto) 1.0 L, Eos % (Auto) 0.1, Baso % (Auto) 0.3, Neut # (Auto) 13.2 H, Lymph # (Auto) 0.8, [place] # (Auto) 0.1, Eos # (Auto) 0.0, Baso # (Auto) 0.1, Sodium 139, Potassium 4.2, Chloride 109 H, Carbon Dioxide 22, Anion Gap 12.2, BUN 16, Creatinine 0.80, Estimated Creat Clear 67, Estimated GFR 76, Est GFR ( Amer) 92, Glucose 233 H, Hemoglobin A1c 6.6 H, Calcium 9.6, Troponin I < 0.01 02/06/24 08:00: Lactate 3.4 H, Troponin I < 0.01 02/06/24 10:50: Lactate 3.3 H 02/06/24 11:13: POC Glucose 248 H I & O for Last 24 hours: Intake & Output 02/03/24 02/04/24 02/05/24 02/06/24 23:59 23:59 23:59 23:59 Intake Total 535 / 535 Output Total 400 / 400 Balance 135 / 135 Weight 130.362 kg Constitutional Constitutional: no acute distress, morbidly obese, chronically ill appearing and cooperative *Routine HEENT Exam Head: Present normocephalic Eye: Present EOMI and PERRL ENT: Present mucous membranes moist *Routine Neck Exam Neck: Present supple; Absent lymphadenopathy *Routine Respiratory Exam Respiratory: Present CTA bilaterally; Absent rhonchi, wheezes or crackles *Routine Cardiovascular Exam Cardiovascular: Present RRR *Routine Abdominal Exam Abdominal: Present soft and normoactive bowel sounds; Absent tenderness *Routine Rectal Exam Patient deferred: visual exam *Routine Exam Patient deferred: external exam *Routine Extremities Exam Extremities: Absent cyanosis, clubbing or edema Routine Back/Spine/Pelvis Exam Back/Spine: Present CVA tenderness (mild on left) *Routine Skin Exam Skin: Present warm; Absent rash *Routine Neurological Exam Neurological: Present alert, oriented X3 and moving all extremities; Absent altered mental status Comments: lower extremity weakness Results Data Completed and Pending Labs on day of discharge: Labs from last 24 hours 02/06/24 02/06/24 02/06/24 11:13 10:50 08:00 WBC RBC Hgb Hct MCV MCH MCHC RDW Plt Count MPV Neut % (Auto) Lymph % (Auto) [place] % (Auto) Eos % (Auto) Baso % (Auto) Neut # (Auto) Lymph # (Auto) [place] # (Auto) Eos # (Auto) Baso # (Auto) Total Counted Neutrophils % (Manual) Lymphocytes % (Manual) Monocytes % (Manual) Platelet Estimate RBC Morphology Hypochromasia Sodium Potassium Chloride Carbon Dioxide Anion Gap BUN Creatinine Estimated Creat Clear Estimated GFR Est GFR ( Amer) Glucose POC Glucose 248 H Hemoglobin A1c Lactate 3.3 H 3.4 H Calcium Total Bilirubin AST ALT Alkaline Phosphatase Troponin I < 0.01 Total Protein Albumin Globulin Albumin/Globulin Ratio Urine Color Urine Appearance Urine pH Ur Specific [place] Urine Protein Urine Glucose (UA) Urine Ketones Urine Blood Urine Nitrate Urine Bilirubin Urine Urobilinogen Ur Leukocyte Esterase Urine RBC Urine WBC Ur Squamous Epith Cells Urine Bacteria SARS-CoV-2 (PCR) Influenza A Untype (PCR) Influenza Type B (PCR) 02/06/24 02/06/24 02/06/24 05:53 04:20 02:31 WBC 14.2 H RBC 5.18 Hgb 14.4 Hct 46.9 MCV 90.6 MCH 27.9 MCHC 30.7 L RDW 14.8 Plt Count 333 MPV 8.2 Neut % (Auto) 92.6 H Lymph % (Auto) 5.9 L [place] % (Auto) 1.0 L Eos % (Auto) 0.1 Baso % (Auto) 0.3 Neut # (Auto) 13.2 H Lymph # (Auto) 0.8 [place] # (Auto) 0.1 Eos # (Auto) 0.0 Baso # (Auto) 0.1 Total Counted Neutrophils % (Manual) Lymphocytes % (Manual) Monocytes % (Manual) Platelet Estimate RBC Morphology Hypochromasia Sodium 139 Potassium 4.2 Chloride 109 H Carbon Dioxide 22 Anion Gap 12.2 BUN 16 Creatinine 0.80 Estimated Creat Clear 67 Estimated GFR 76 Est GFR ( Amer) 92 Glucose 233 H POC Glucose Hemoglobin A1c 6.6 H Lactate Calcium 9.6 Total Bilirubin AST ALT Alkaline Phosphatase Troponin I < 0.01 Total Protein Albumin Globulin Albumin/Globulin Ratio Urine Color [place] Urine Appearance Clear Urine pH 6.0 Ur Specific [place] 1.020 Urine Protein Trace Urine Glucose (UA) 3+ Urine Ketones Trace Urine Blood 1+ Urine Nitrate Positive Urine Bilirubin Negative Urine Urobilinogen 1.0 Ur Leukocyte Esterase Negative Urine RBC 3-5 Urine WBC 20-50 Ur Squamous Epith Cells 5-10 Urine Bacteria 1+ SARS-CoV-2 (PCR) Not detected Influenza A Untype (PCR) Not detected Influenza Type B (PCR) Not detected 02/06/24 02:28 WBC 15.4 H RBC 5.22 Hgb 14.6 Hct 46.5 MCV 89.1 MCH 27.9 MCHC 31.4 L RDW 14.8 Plt Count 369 MPV 8.3 Neut % (Auto) 88.4 H Lymph % (Auto) 9.1 L [place] % (Auto) 1.3 L Eos % (Auto) 0.6 Baso % (Auto) 0.5 Neut # (Auto) 13.6 H Lymph # (Auto) 1.4 [place] # (Auto) 0.2 Eos # (Auto) 0.1 Baso # (Auto) 0.1 Total Counted 100 Neutrophils % (Manual) 89 H Lymphocytes % (Manual) 9 L Monocytes % (Manual) 2 Platelet Estimate Normal RBC Morphology Not Reportable Hypochromasia 1+ Sodium 139 Potassium 4.2 Chloride 110 H Carbon Dioxide 22 Anion Gap 11.2 BUN 15 Creatinine 0.90 Estimated Creat Clear 62 Estimated GFR 66 Est GFR ( Amer) 80 Glucose 241 H POC Glucose Hemoglobin A1c Lactate 2.5 H Calcium 9.7 Total Bilirubin 0.4 AST 39 H ALT 69 Alkaline Phosphatase 92 Troponin I < 0.01 Total Protein 6.6 Albumin 3.5 Globulin 3.1 Albumin/Globulin Ratio 1.1 Urine Color Urine Appearance Urine pH Ur Specific [place] Urine Protein Urine Glucose (UA) Urine Ketones Urine Blood Urine Nitrate Urine Bilirubin Urine Urobilinogen Ur Leukocyte Esterase Urine RBC Urine WBC Ur Squamous Epith Cells Urine Bacteria SARS-CoV-2 (PCR) Influenza A Untype (PCR) Influenza Type B (PCR) DS: Diagnosis Discharge Diagnosis (1) Dysuria: Status: Acute Code(s): R30.0 - Dysuria (2) SIRS (systemic inflammatory response syndrome): Status: Acute Code(s): R65.10 - Systemic inflammatory response syndrome (SIRS) of non-infectious origin without acute organ dysfunction (3) Allergic reaction: Status: Acute Code(s): T78.40XA - Allergy, unspecified, initial encounter (4) BMI 45.0-49.9, adult: Status: Acute Code(s): Z68.42 - Body mass index [BMI] 45.0-49.9, adult (5) Obesity: Status: Acute Code(s): E66.9 - Obesity, unspecified Qualifiers: Body mass index: BMI 40.0-44.9 Obesity classification: adult class 3 (BMI >= 40) (6) HTN (hypertension): Status: Chronic Code(s): I10 - Essential (primary) hypertension Qualifiers: Hypertension type: essential hypertension Qualified Code(s): I10 - Essential (primary) hypertension (7) Bilateral nephrolithiasis: Status: Acute Code(s): N20.0 - Calculus of kidney Meds Home Medications and Allergies Home Medications Medication Instructions Recorded Confirmed Type tizanidine 4 mg capsule (Zanaflex) 4 mg PO TIDP PRN Muscle Spasm 02/22/20 02/06/24 History nebivolol 5 mg tablet 5 mg PO DAILY 12/21/21 02/06/24 History tramadol 50 mg tablet 100 mg PO Q6HP PRN Moderate Pain 12/22/21 02/06/24 History albuterol sulfate 90 mcg/actuation 2 puff inhalation Q4HP PRN 12/28/21 02/06/24 History aerosol inhaler (ProAir HFA) Shortness Of Breath promethazine 25 mg tablet 12.5 mg PO Q4HP PRN Nausea 03/30/22 02/06/24 History spironolactone 50 mg tablet 50 mg PO DAILY 03/30/22 02/06/24 History (Aldactone) omeprazole 20 mg capsule,delayed 20 mg PO DAILY 04/24/22 02/06/24 History release fluticasone 250 mcg-salmeterol 50 1 puff inhalation BID 04/27/22 02/06/24 History mcg/dose blistr powdr for inhalation ibuprofen 800 mg tablet 800 mg PO TIDP PRN Mild 05/01/22 02/06/24 History Pain,Fever,Headache acetaminophen 325 mg tablet 650 mg (2 x 325 mg) PO Q4HP PRN 05/04/22 02/06/24 Rx Mild Pain bumetanide 2 mg tablet 2 mg PO BID 03/04/23 02/06/24 History pravastatin 10 mg tablet 10 mg PO DAILY 03/04/23 02/06/24 History sacubitril 24 mg-valsartan 26 mg 1 tab PO BID 03/04/23 02/06/24 History tablet (Entresto) ascorbic acid (vitamin C) 500 mg 500 mg PO DAILY 02/06/24 02/06/24 History tablet (Vitamin C) cetirizine 10 mg tablet (Zyrtec) 10 mg PO DAILY 02/06/24 02/06/24 History empagliflozin 25 mg-linagliptin 5 1 tab PO AM 02/06/24 02/06/24 History mg tablet (Glyxambi) ertapenem 1 gram solution for 1 g IV Q24H 13 days #0 ea 02/06/24 Rx injection ipratropium 0.5 mg-albuterol 3 mg 3 ml inhalation QID 02/06/24 02/06/24 History (2.5 mg base)/3 mL nebulization soln metformin 500 mg tablet 500 mg PO BIDWMEAL 02/06/24 02/06/24 History methenamine hippurate 1 gram tablet 1 g PO BID 02/06/24 02/06/24 History montelukast 10 mg tablet 10 mg PO HS 02/06/24 02/06/24 History (Singulair) phenazopyridine 200 mg tablet 200 mg PO TID 02/06/24 02/06/24 History New Prescriptions to Start Prescriptions: Allergies Allergy/AdvReac Type Severity Reaction Status Date / Time aspirin Allergy Severe S-DIFF. Verified 02/06/24 02:36 BREATHING bee venom protein (honey bee) Allergy Severe Anaphylaxis Verified 02/06/24 02:36 Bleach (Sodium Hypochlorite) Allergy Severe diff. Verified 02/06/24 02:36 breathing, dizzy pneumococcal vaccine Allergy Verified 02/06/24 02:36 sulfamethoxazole Allergy Verified 02/06/24 02:36 [From Bactrim] trimethoprim [From Bactrim] Allergy Verified 02/06/24 02:36 sucralose AdvReac Severe breathing Verified 02/06/24 02:36 [From SUCRALOSE (FOOD/DRUG)] problems Discharge Plan Disposition Patient Disposition: Home, Self-Care Condition: Fair Follow up Plan Follow up with: Juarez Griffin MD [Primary Care Provider] - Enter time for follow up (please call for appointment) Uli Chacko MD [Staff Physician] - 03/09/24 9:45 am Prescriptions/Medication Reconciliation: New ertapenem 1 gram Recon Soln 1 g IV Q24H 13 Days Qty: 0 0RF Continued tizanidine [Zanaflex] 4 mg capsule 4 mg PO TIDP PRN (Reason: Muscle Spasm) spironolactone [Aldactone] 50 mg tablet 50 mg PO DAILY bumetanide 2 mg tablet 2 mg PO BID Entresto 24-26 mg tablet 1 tab PO BID pravastatin 10 mg tablet 10 mg PO DAILY Patient Comments: TAKE ONE TABLET BY MOUTH EVERY DAY AT BEDTIME albuterol sulfate [ProAir HFA] 90 mcg/actuation HFA aerosol inhaler 2 puff IH Q4HP PRN (Reason: Shortness Of Breath) promethazine 25 mg tablet 12.5 mg PO Q4HP PRN (Reason: Nausea) omeprazole 20 mg capsule,delayed release(DR/EC) 20 mg PO DAILY nebivolol 5 MG tablet 5 mg PO DAILY tramadol 50 MG tablet 100 mg PO Q6HP PRN (Reason: Moderate Pain) fluticasone propion-salmeterol 28 PUFFS/50 MCG inhaler 1 puff IH BID ibuprofen 800 MG tablet 800 mg PO TIDP PRN (Reason: Mild Pain,Fever,Headache) acetaminophen 325 MG tablet 650 mg PO Q4HP PRN (Reason: Mild Pain) 0RF metformin 500 mg tablet 500 mg PO BIDWMEAL Patient Comments: TAKE ONE TABLET BY MOUTH TWICE DAILY phenazopyridine 200 mg tablet 200 mg PO TID methenamine hippurate 1 gram tablet 1 g PO BID ascorbic acid (vitamin C) [Vitamin C] 500 mg tablet 500 mg PO DAILY Patient Comments: TAKE ONE TABLET BY MOUTH EVERY DAY Glyxambi 25-5 mg tablet 1 tab PO AM Patient Comments: TAKE ONE TABLET BY MOUTH ONCE DAILY IN THE MORNING ipratropium-albuterol 0.5 mg-3 mg(2.5 mg base)/3 mL solution for nebulization 3 ml INHALATION QID Patient Comments: INHALE THE CONTENTS OF 1 VIAL VIA NEBULIZER FOUR TIMES DAILY DIRECTED cetirizine [Zyrtec] 10 mg Tablet 10 mg PO DAILY montelukast [Singulair] 10 mg Tablet 10 mg PO HS Problem Reconciliation Problems Reviewed?: Yes Patient Discharge Instructions ACTIVITY: Continue current activity DIET: continue same diet Patient Instructions: DI for Urinary Tract Infection (UTI), DI for Acute Cystitis Providers Primary Care Provider: Juarez Griffin Admit Provider: Alexys Matias Attending Provider: Alexys Matias
--- NOTE | 2024-02-09 03:18 | PC.NURSE ---
prelim cultures resulted, negative pending final culture result. assigned to dr zelaya for continuity of care.
--- NOTE | 2024-02-11 01:40 | PC.NURSE ---
PRELIM BLOOD CX'S NEGATIVE; WAITING ON FINAL RESULTS. ASSIGNED TO HOSPITALIST GROUP FOR CONTINUITY OF CARE
== END 2024-02-06 17:01 | disposition home or self-care (01) ==
LOC: ER 04:33 → 2ND 04:49
PROVIDERS: Nurse Practitioner Acute Care; Admitting Provider Internal Medicine Adolescent Medicine; Emergency Provider Emergency Medicine; PCP Internal Medicine; Visit Provider Internal Medicine Adolescent Medicine
DX: N39.0 Urinary tract infection, site not specified (principal); E66.01 Morbid (severe) obesity due to excess calories; Z68.42 Body mass index [BMI] 45.0-49.9, adult; I10 Essential (primary) hypertension; Z79.899 Other long term (current) drug therapy; Z79.84 Long term (current) use of oral hypoglycemic drugs; E11.9 Type 2 diabetes mellitus without complications; J44.9 Chronic obstructive pulmonary disease, unspecified; L27.0 Generalized skin eruption due to drugs and medicaments taken internally; T36.8X5A Adverse effect of other systemic antibiotics, initial encounter; R07.1 Chest pain on breathing
CPT/HCPCS: 36415; 36569; 71045; 74176; 80048; 80053; 81001; 82962; 83036; 83605; 84484; 85007; 85025; 87040; 87086; 87636; 93005; 94640; 99285; C1751; G0378; J1335

== ENCOUNTER 2024-02-07 09:26 | Outpatient (CLI) | payer OTHER, SELFPAY ==
[2024-02-07 09:47] VITALS: BP 121/56; PULSE 68; RESP 18; O2SAT 97
[2024-02-07] MEDS: ERTAPENEM SODIUM 1 GM in 0.9 % SODIUM CHLORIDE 50 ML IV (09:47)
[2024-02-07] MEDS: SODIUM CHLORIDE 0.9% 50ML BAG 50 ML IV (09:47)
[2024-02-07 10:30] VITALS: BP 108/56; PULSE 66; RESP 19; O2SAT 97
== END 2024-02-07 10:30 | disposition home or self-care (01) ==
LOC: INF 09:27
PROVIDERS: PCP Internal Medicine; Visit Provider Internal Medicine
DX: N39.0 Urinary tract infection, site not specified (principal)
CPT/HCPCS: 96365; J1335

== ENCOUNTER 2024-02-08 10:13 | Outpatient (CLI) | payer OTHER, SELFPAY ==
[2024-02-08 10:13] VITALS: BP 132/74; PULSE 62; RESP 16; O2SAT 97
[2024-02-08] MEDS: ERTAPENEM SODIUM 1 GM in 0.9 % SODIUM CHLORIDE 50 ML IV (11:05)
== END 2024-02-08 11:15 | disposition home or self-care (01) ==
LOC: INF 10:14
PROVIDERS: PCP Internal Medicine; Visit Provider Internal Medicine Adolescent Medicine
DX: N39.0 Urinary tract infection, site not specified (principal)
CPT/HCPCS: 96365; G0463; J1335

== ENCOUNTER 2024-02-09 11:16 | Outpatient (CLI) | payer OTHER, SELFPAY ==
[2024-02-09 11:16] VITALS: BP 121/62; PULSE 76; RESP 16; TEMP 36.8; O2SAT 97
[2024-02-09] MEDS: ERTAPENEM SODIUM 1 GM in 0.9 % SODIUM CHLORIDE 50 ML IV (11:33)
== END 2024-02-09 12:07 | disposition home or self-care (01) ==
LOC: INF 11:17
PROVIDERS: PCP Internal Medicine Adolescent Medicine; Visit Provider Internal Medicine Adolescent Medicine
DX: N39.0 Urinary tract infection, site not specified (principal); B96.89 Other specified bacterial agents as the cause of diseases classified elsewhere
CPT/HCPCS: 96365; G0463; J1335

== ENCOUNTER 2024-02-10 12:25 | Outpatient (CLI) | payer OTHER, SELFPAY ==
[2024-02-10 12:36] VITALS: BP 112/73; PULSE 76; RESP 18; TEMP 36.6; O2SAT 98
[2024-02-10] MEDS: ERTAPENEM SODIUM 1 GM in 0.9 % SODIUM CHLORIDE 50 ML IV (12:36)
[2024-02-10] MEDS: SODIUM CHLORIDE 0.9% 50ML BAG 50 ML IV (12:36)
[2024-02-10 13:25] VITALS: BP 105/61; PULSE 66; RESP 18; O2SAT 97
== END 2024-02-10 13:25 | disposition home or self-care (01) ==
LOC: INF 12:25
PROVIDERS: PCP Internal Medicine; Visit Provider Internal Medicine Adolescent Medicine
DX: N39.0 Urinary tract infection, site not specified (principal)
CPT/HCPCS: 96365; J1335

== ENCOUNTER 2024-02-11 12:10 | Outpatient (CLI) | payer OTHER, SELFPAY ==
[2024-02-11 12:23] VITALS: BP 106/53; PULSE 74; RESP 16; TEMP 36.4; O2SAT 98
[2024-02-11] MEDS: SODIUM CHLORIDE 0.9% 10ML FLUSH SYRINGE 10 ML IV (12:23)
[2024-02-11] MEDS: SODIUM CHLORIDE 0.9% 50ML BAG 50 ML IV (12:23)
[2024-02-11] MEDS: ERTAPENEM SODIUM 1 GM in 0.9 % SODIUM CHLORIDE 50 ML IV (12:23)
[2024-02-11 13:20] VITALS: BP 112/62; PULSE 69; RESP 16; TEMP 36.4; O2SAT 98
== END 2024-02-11 12:20 | disposition home or self-care (01) ==
LOC: INF 12:10
PROVIDERS: PCP Internal Medicine; Visit Provider Internal Medicine Adolescent Medicine
DX: N39.0 Urinary tract infection, site not specified (principal)
CPT/HCPCS: 96365; J1335

== ENCOUNTER 2024-02-12 01:00 | Emergency (ER) | payer OTHER, SELFPAY ==
[2024-02-12 01:01] VITALS: BP 130/83; PULSE 84; RESP 16; TEMP 36.9; O2SAT 96; BMI 49.6
[2024-02-12 01:19] VITALS: BP 114/68; PULSE 71; RESP 16; TEMP 36.9; O2SAT 96
--- NOTE | 2024-02-12 01:20 | HMH.EDGENADL ---
Discharge Plan Disposition Patient Disposition: Home, Self-Care Prescriptions Prescriptions: No Action tizanidine [Zanaflex] 4 mg capsule 4 mg PO TIDP PRN (Reason: Muscle Spasm) spironolactone [Aldactone] 50 mg tablet 50 mg PO DAILY bumetanide 2 mg tablet 2 mg PO BID Entresto 24-26 mg tablet 1 tab PO BID pravastatin 10 mg tablet 10 mg PO DAILY Patient Comments: TAKE ONE TABLET BY MOUTH EVERY DAY AT BEDTIME albuterol sulfate [ProAir HFA] 90 mcg/actuation HFA aerosol inhaler 2 puff IH Q4HP PRN (Reason: Shortness Of Breath) promethazine 25 mg tablet 12.5 mg PO Q4HP PRN (Reason: Nausea) omeprazole 20 mg capsule,delayed release(DR/EC) 20 mg PO DAILY nebivolol 5 MG tablet 5 mg PO DAILY tramadol 50 MG tablet 100 mg PO Q6HP PRN (Reason: Moderate Pain) fluticasone propion-salmeterol 28 PUFFS/50 MCG inhaler 1 puff IH BID ibuprofen 800 MG tablet 800 mg PO TIDP PRN (Reason: Mild Pain,Fever,Headache) acetaminophen 325 MG tablet 650 mg PO Q4HP PRN (Reason: Mild Pain) 0RF metformin 500 mg tablet 500 mg PO BIDWMEAL Patient Comments: TAKE ONE TABLET BY MOUTH TWICE DAILY phenazopyridine 200 mg tablet 200 mg PO TID methenamine hippurate 1 gram tablet 1 g PO BID ascorbic acid (vitamin C) [Vitamin C] 500 mg tablet 500 mg PO DAILY Patient Comments: TAKE ONE TABLET BY MOUTH EVERY DAY Glyxambi 25-5 mg tablet 1 tab PO AM Patient Comments: TAKE ONE TABLET BY MOUTH ONCE DAILY IN THE MORNING ipratropium-albuterol 0.5 mg-3 mg(2.5 mg base)/3 mL solution for nebulization 3 ml INHALATION QID Patient Comments: INHALE THE CONTENTS OF 1 VIAL VIA NEBULIZER FOUR TIMES DAILY DIRECTED cetirizine [Zyrtec] 10 mg Tablet 10 mg PO DAILY montelukast [Singulair] 10 mg Tablet 10 mg PO HS ertapenem 1 gram Recon Soln 1 g IV Q24H 13 Days Qty: 0 0RF Referrals Follow up/Referrals: Juarez Griffin MD [Primary Care Provider] - See instructions Activity Restrictions/Add. Instructions Additional Instructions/Restrictions: Please follow-up with your primary care provider and with urology. Please return to the emergency department if you develop any new or worsening symptoms or become concerned for your health. Clinical Impressions Clinical Impression: Bilateral nephrolithiasis UTI (urinary tract infection) Qualifiers: Hematuria presence: with hematuria Instructions Patient Instructions: DI for Acute Abdominal Pain Discharge ED Provider: Gennaro Cuevas Adult HPI General Chief complaint: Abdominal Pain Stated complaint: being treated for uti, lower back pain, nausea Time Seen by Provider: 02/12/24 01:12 Mode of Arrival: Wheelchair Source of Information: Patient Limitations: No Limitations Description of Symptoms (Recalled from ER Triage Doc. by RN): Pt presents to ED for R/L flank pain. Pt states she's got infected kidney stones and comes to [facility] daily for IV antibiotics. Pt is A&O*4 at this time History of Present Illness HPI narrative: 48-year-old female with history of obesity, chronic urinary tract infection with chronic kidney stones, asthma, hypertension presents with bilateral flank pain. She has been dealing with kidney infection for a long time. She is currently on a 14-day course of ertapenem for antibiotic resistant Proteus. She also has multiple bilateral large renal stones. She has passed kidney stones in the past. She had worsening bilateral flank pain today that was worse than normal and so presents. She denies any fever at home. She has a PICC line through which she has been receiving daily ertapenem infusion. She has follow-up scheduled with urology but has not yet seen a surgeon who is willing to intervene with the stones. There is concern that the stones are chronically colonized with Proteus at this point. Related Data Home Medications Medication Instructions Recorded Confirmed tizanidine 4 mg capsule (Zanaflex) 4 mg PO TIDP PRN Muscle Spasm 02/22/20 02/11/24 nebivolol 5 mg tablet 5 mg PO DAILY 12/21/21 02/11/24 tramadol 50 mg tablet 100 mg PO Q6HP PRN Moderate Pain 12/22/21 02/11/24 albuterol sulfate 90 mcg/actuation 2 puff inhalation Q4HP PRN 12/28/21 02/11/24 aerosol inhaler (ProAir HFA) Shortness Of Breath promethazine 25 mg tablet 12.5 mg PO Q4HP PRN Nausea 03/30/22 02/11/24 spironolactone 50 mg tablet 50 mg PO DAILY 03/30/22 02/11/24 (Aldactone) omeprazole 20 mg capsule,delayed 20 mg PO DAILY 04/24/22 02/11/24 release fluticasone 250 mcg-salmeterol 50 1 puff inhalation BID 04/27/22 02/11/24 mcg/dose blistr powdr for inhalation ibuprofen 800 mg tablet 800 mg PO TIDP PRN Mild 05/01/22 02/11/24 Pain,Fever,Headache bumetanide 2 mg tablet 2 mg PO BID 03/04/23 02/11/24 pravastatin 10 mg tablet 10 mg PO DAILY 03/04/23 02/11/24 sacubitril 24 mg-valsartan 26 mg 1 tab PO BID 03/04/23 02/11/24 tablet (Entresto) ascorbic acid (vitamin C) 500 mg 500 mg PO DAILY 02/06/24 02/11/24 tablet (Vitamin C) cetirizine 10 mg tablet (Zyrtec) 10 mg PO DAILY 02/06/24 02/11/24 empagliflozin 25 mg-linagliptin 5 1 tab PO AM 02/06/24 02/11/24 mg tablet (Glyxambi) ipratropium 0.5 mg-albuterol 3 mg 3 ml inhalation QID 02/06/24 02/11/24 (2.5 mg base)/3 mL nebulization soln metformin 500 mg tablet 500 mg PO BIDWMEAL 02/06/24 02/11/24 methenamine hippurate 1 gram tablet 1 g PO BID 02/06/24 02/11/24 montelukast 10 mg tablet 10 mg PO HS 02/06/24 02/11/24 (Singulair) phenazopyridine 200 mg tablet 200 mg PO TID 02/06/24 02/11/24 Previous Rx's Medication Instructions Recorded acetaminophen 325 mg tablet 650 mg (2 x 325 mg) PO Q4HP PRN 05/04/22 Mild Pain ertapenem 1 gram solution for 1 g IV Q24H 13 days #0 ea 02/06/24 injection Allergies Allergy/AdvReac Type Severity Reaction Status Date / Time aspirin Allergy Severe S-DIFF. Verified 02/12/24 01:13 BREATHING bee venom protein (honey bee) Allergy Severe Anaphylaxis Verified 02/12/24 01:13 Bleach (Sodium Hypochlorite) Allergy Severe diff. Verified 02/12/24 01:13 breathing, dizzy pneumococcal vaccine Allergy Verified 02/12/24 01:13 sulfamethoxazole Allergy Verified 02/12/24 01:13 [From Bactrim] trimethoprim [From Bactrim] Allergy Verified 02/12/24 01:13 sucralose AdvReac Severe breathing Verified 02/12/24 01:13 [From SUCRALOSE (FOOD/DRUG)] problems PFSH [facility] Disclaimer: The information contained in this section may have been updated after the patient was seen, as this information can be updated by other users. Medical History (Updated 02/12/24 @ 02:46 by Gennaro Cuevas MD) Syncopal episodes Right flank pain Adnexal mass Septic shock Severe sepsis with acute organ dysfunction Cellulitis of right wrist Pneumonia Asthma with exacerbation Syncope Altered mental status Surgical History History of cholecystectomy S/P right oophorectomy S/P hysterectomy History of tubal ligation Family History Other Alzheimer disease Bipolar 1 disorder Dementia Family history of diabetes mellitus type II Family history of myocardial infarction Lung cancer Lupus Social History (Updated 02/11/24 @ 13:42 by Keyanna Ga RN) Smoking Status: Never smoker second hand exposure: No alcohol intake: current substance use type: denies use current occupational status: unemployed and disabled Travel in the last 8 weeks: None household members: spouse housing: house current occupational exposures/hazards: No caffeine: Yes ROS Obtained: Yes All systems reviewed & no additional complaints except as documented Physical Exam General General appearance: alert and in no apparent distress Head Head exam: atraumatic and normocephalic Eye Eye exam: Present normal appearance, PERRL and EOMI ENT ENT exam: Present normal oropharynx and normal external ear exam Neck Neck exam: Present normal inspection and full ROM Chest Chest inspection: Present normal inspection and symmetric chest wall rise; Absent tenderness Respiratory Respiratory exam: Present normal lung sounds bilaterally; Absent respiratory distress Cardiovascular Cardiovascular exam: Present regular rate and normal rhythm Abdominal Exam Abdominal exam: Present soft; Absent distention, tenderness or guarding Extremities Exam Extremities exam: Present normal inspection; Absent edema or joint swelling Back Exam Back exam: Present normal inspection, CVA tenderness (R) and CVA tenderness (L) Neurological Exam Neurological exam: Present alert and oriented X3; Absent motor sensory deficit Psychiatric Psychiatric exam: Present normal affect and normal mood Skin Skin exam: Present warm, dry and normal color Lymphatic Lymphatic Findings: no adenopathy Medical Decision Making Medical Records Medical records reviewed: Yes I reviewed the patient's medical records. Harjinder Inquiry Pt receiving controlled substance: No Harjinder was queried for this patient: No Vital Signs: 02/12/24 01:01 02/12/24 01:19 Temperature 98.4 F 98.4 F Temperature Source Oral Oral Pulse Rate 71 Pulse Rate [Left] 84 Respiratory Rate 16 16 Blood Pressure 114/68 Blood Pressure [Right Arm] 130/83 Blood Pressure Mean [Right Arm] 98 02 Sat by Pulse Oximetry 96 96 Oxygen Delivery Method Room Air Room Air Lab Data Lab results reviewed: Yes I reviewed the patient's lab results. Lab Results 02/12/24 01:10: WBC 16.5 H, RBC 5.35, Hgb 15.0, Hct 46.7, MCV 87.4, MCH 28.0, MCHC 32.1, RDW 14.9, Plt Count 321, MPV 7.8, Neut % (Auto) 69.3, Lymph % (Auto) 23.6, Cavalier % (Auto) 3.9, Eos % (Auto) 1.8, Baso % (Auto) 1.4, Neut # (Auto) 11.5 H, Lymph # (Auto) 3.9, Cavalier # (Auto) 0.7, Eos # (Auto) 0.3, Baso # (Auto) 0.2, Total Counted 100, Neutrophils % (Manual) 66, Lymphocytes % (Manual) 27, Monocytes % (Manual) 4, Eosinophils % (Manual) 3, Platelet Estimate Normal, RBC Morphology Normal, Sodium 136, Potassium 3.9, Chloride 101, Carbon Dioxide 27, Anion Gap 11.9, BUN 16, Creatinine 0.70, Estimated Creat Clear 80, Estimated GFR 89, Est GFR ( Amer) 107, Glucose 131 H, Calcium 9.7, Total Bilirubin 0.7, AST 38 H, ALT 56, Alkaline Phosphatase 95, Total Protein 7.1, Albumin 4.0, Globulin 3.1, Albumin/Globulin Ratio 1.3, Urine Color Yellow, Urine Appearance Cloudy, Urine pH 6.0, Ur Specific Weidman 1.020, Urine Protein 1+, Urine Glucose (UA) 3+, Urine Ketones Negative, Urine Blood 2+, Urine Nitrate Negative, Urine Bilirubin Negative, Urine Urobilinogen 0.2, Ur Leukocyte Esterase 1+ A, Urine RBC 10-20, Urine WBC 20-50, Ur Squamous Epith Cells 5-10, Urine Bacteria 1+, Urine HCG, Qual Negative 02/12/24 01:10 02/12/24 01:10 Orders (Tests/Meds): ED MEDICATIONS Generic Name Dose Route Start Last Admin Trade Name Freq PRN Reason Stop Dose Admin Sodium Chloride 10 ml 02/12/24 02:18 02/12/24 02:19 Sodium Chloride 0.9% 10ml Syr (Rad Only) IV 03/13/24 02:17 10 ml NEEDED PRN Administration Maintain IV Site Discontinued Medications Generic Name Dose Route Start Last Admin Trade Name Freq PRN Reason Stop Dose Admin Acetaminophen 1,000 mg 02/12/24 01:30 02/12/24 01:44 Acetaminophen 500mg Tab PO 02/12/24 01:31 1,000 mg ONCE ONE Administration Lactated Ringer's 1,000 mls @ 999 mls/hr 02/12/24 01:30 02/12/24 01:44 Lactated Ringer's 1000 Ml Bag IV 02/12/24 02:30 999 mls/hr .Q1H1M ARINA Administration Iopamidol 75 ml 02/12/24 02:18 02/12/24 02:19 Iopamidol-370 (76%);100ml Bottle IV 02/12/24 02:19 75 ml ONCE ONE Administration Ketorolac Tromethamine 30 mg 02/12/24 01:30 02/12/24 01:44 Ketorolac 30mg/Ml Vial IV 02/12/24 01:31 30 mg ONCE ONE Administration Ondansetron HCl 4 mg 02/12/24 01:30 02/12/24 01:44 Ondansetron 4mg/2ml Vial IV 02/12/24 01:31 4 mg ONCE ONE Administration ORDERS Category Date Time Status CT abdomen pelvis w con Stat Cat Scan 02/12/24 01:30 Completed CBC w/Auto Diff [Complete Blood Count Auto Diff] Stat Lab 02/12/24 01:10 Completed CMP [Comprehensive Metabolic Panel] Stat Lab 02/12/24 01:10 Completed UA [Urinalysis and Microscopic] Stat Lab 02/12/24 01:10 Completed Urine , HCG Qual. Stat Lab 02/12/24 01:10 Completed Blood Culture Stat Micro 02/12/24 01:55 Received Urine Culture Stat Micro 02/12/24 01:10 Received Medical Decision Narrative: 48-year-old female with history of chronic kidney stones, chronic antibiotic resistant Proteus infection, currently on 14-day course of outpatient ertapenem infusions who presents for worsening bilateral flank pain today. History was obtained interactive discussion with patient, family, chart review. On arrival, patient is [afebrile, hemodynamically stable, satting appropriately, alert, oriented x4, GCS 15], moving all extremities spontaneously. Full physical exam performed and significant for mild bilateral flank tenderness Differential includes but is not limited to pyelonephritis, obstructive nephrolithiasis, sepsis, bacteremia. Patient was given IV Toradol, IV Zofran, p.o. Tylenol, 1 L fluid bolus for symptomatic management and correction of underlying abnormalities. Workup initiated including CBC CMP lactate blood cultures UA urine culture CT abdomen pelvis with IV contrast. On re-evaluation, patient [remains afebrile, HD stable.] She reports marked symptomatic improvement. Laboratory workup independently interpreted by me and significant for leukocytosis, stable from prior, urine with 10-20 RBCs and 20-50 WBCs, normal renal function noted. Imaging independently interpreted by me and significant for large stable cystic intra-abdominal mass, bilateral nonobstructive nephrolithiasis without perinephric abscess or hydronephrosis. See radiology read for full review of final results. Transfer for emergent urologic intervention was considered, but deemed unnecessary due to chronic UTI, nonobstructing stones, patient is not septic. Given patient history, exam and workup, patient's presentation most likely represents chronic UTI and chronic nonobstructing kidney stones. Patient may have been passing sediment, she said her urine felt smith. No evidence of new/emergent pathology at this time. Extensive discussion had with patient regarding her symptoms, presentation and workup. She is aware of the intra-abdominal mass and it is being monitored. Thought to be a postoperative fluid collection from her hysterectomy. Patient discharged in stable condition, will continue her antibiotic regimen and will try to expedite her urology follow-up. Will follow-up on blood cultures.. Procedures Risk/Benefits of Procedure(s) Were Explained: Yes Critical Care Critical Care Time Critical Care Time: No
--- NOTE | 2024-02-12 01:30 | CT_ITS ---
PROCEDURE INFORMATION: Exam: CT Abdomen And Pelvis With Contrast Exam date and time: 02/12/2024 2:10 AM Age: 48 years old Clinical indication: Abdominal pain; Additional info: Bilat flank pain, current UTI, HX stones TECHNIQUE: Imaging protocol: Computed tomography of the abdomen and pelvis with contrast. Radiation optimization: All CT scans at this facility use at least one of these dose optimization techniques: automated exposure control; mA and/or kV adjustment per patient size (includes targeted exams where dose is matched to clinical indication); or iterative reconstruction. Contrast material: ISOVUE; Contrast volume: 75 ml; Contrast route: IV; COMPARISON: CT ABDOMEN PELVIS WO CON 02/06/2024 10:04 AM FINDINGS: Lungs: No acute finding. Liver: Moderate hepatic steatosis is evident. Gallbladder and bile ducts: The gallbladder is absent. There is no biliary ductal dilation. Pancreas: Normal. No ductal dilation. Spleen: Normal. No splenomegaly. Adrenal glands: Normal. No mass. Kidneys and ureters: Stable 9 x 27 mm right renal pelvic calculus. Several calculi are noted within the lower pole collecting system of the left kidney measuring up to 10 mm. The kidneys demonstrate symmetric function. There is no hydronephrosis. The ureters are normal. Stomach and bowel: Moderate fecal content is noted throughout the colon. No bowel obstruction. No mucosal thickening. Appendix: No evidence of appendicitis. Intraperitoneal space: Unremarkable. No free air. No significant fluid collection. Vasculature: Unremarkable. No abdominal aortic aneurysm. Lymph nodes: Unremarkable. No enlarged lymph nodes. Urinary bladder: The bladder is very mildly distended and unremarkable as visualized. Reproductive: The uterus is absent. Bones/joints: Unremarkable. No acute fracture. Soft tissues: Unremarkable. Other findings: Stable 10 cm simple appearing cystic structure right lower quadrant. IMPRESSION: 1. There is no acute process within the abdomen or pelvis. Stable bilateral renal calculi are noted. 2. Other stable nonemergent findings as detailed.
[2024-02-12 01:38] LABS: Microscopic, Urine URINE MICROSCOPIC (MICROSCOPIC)
[2024-02-12 01:40] LABS: Basophils # 0.2 K/mm3 (0-0.2); Basophils % 1.4 % (0.1-2.0); Eosinophils # 0.3 K/mm3 (0.0-0.4); Eosinophils % 1.8 % (0.1-12.0); Hematocrit 46.7 % (37.0-47.0); Lymphocytes # 3.9 K/mm3 (0.7-4.5); Lymphocytes % 23.6 % (10-50); Mean Corpuscular HGB Conc 32.1 g/dL (31.8-35.4); Mean Corpuscular Volume 87.4 fl (81-99); Mean Platelet Volume 7.8 fl (7.4-10.4); Monocytes # 0.7 K/mm3 (0.1-1.0); Monocytes % 3.9 % (1.7-9.3); Neutrophils # 11.5 K/mm3 (1.8-7.8); Neutrophils % 69.3 % (37.0-80.0); Platelet Count 321 K/mm3 (142-424); Red Blood Count 5.35 M/mm3 (4.20-5.40); Red Cell Distribution Width 14.9 % (11.5-17.5); White Blood Count 16.5 K/mm3 (4.8-10.8)
[2024-02-12 01:41] LABS: Urine Pregnancy, HCG Qual. Negative (Negative)
[2024-02-12 01:42] LABS: MANUAL DIFFERENTIAL MANUAL DIFFERENTIAL (MANUAL DIFF)
[2024-02-12 01:44] LABS: Alanine Aminotransferase 56 U/L (12-78); Albumin/Globulin Ratio 1.3 (1.1-1.8); Alkaline Phosphatase 95 U/L (38-126); Anion Gap 11.9 mEq/L (5-15); Aspartate Amino Transferase 38 U/L (14-36); Bilirubin,Total 0.7 mg/dl (0.2-1.3); Blood Urea Nitrogen 16 mg/dl (7-17); Calcium 9.7 mg/dl (8.4-10.2); Carbon Dioxide 27 mmol/L (22.0-30.0); Chloride 101 mmol/L (98-107); Creatinine Clearance Estimated 80 mL/min (50-200); Estimated Glomerular Filt Rate 89 ml/min (>60); GFR (African American) 107 ML/MIN (>60); Globulin 3.1 g/dL (1.3-3.2); Glucose 131 mg/dl (74-100); Potassium 3.9 mmoL/L (3.5-5.1); Sodium 136 mmol/L (136-145); Total Protein,Serum 7.1 g/dl (6.3-8.2)
[2024-02-12] MEDS: ONDANSETRON 4MG/2ML VIAL 4 MG IV (01:44)
[2024-02-12] MEDS: LACTATED RINGERS 1000ML 1,000 ML 999 ML IV (01:44)
[2024-02-12] MEDS: KETOROLAC 30MG/ML VIAL 30 MG IV (01:44)
[2024-02-12] MEDS: ACETAMINOPHEN 500MG TAB 1000 MG PO (01:44)
[2024-02-12 01:45] LABS: Bilirubin,Urine Negative (Negative); Blood, Urine 2+ (Negative); Glucose,Urine (UA) 3+ (Negative); Ketones,Urine Negative (Negative); Leukocyte Esterase,Urine 1+ (Negative); Nitrate,Urine Negative (Negative); Protein,Urine 1+ (Negative); Urobilinogen,Urine 0.2 EU/dl (0.2)
[2024-02-12 01:46] LABS: Appearance,Urine Cloudy (Clear); Color,Urine Yellow (Yellow)
[2024-02-12 01:59] LABS: Bacteria,Urine 1+ /lpf; WBC,Urine 20-50 #/hpf (0-3)
[2024-02-12 02:07] LABS: Eosinophils % 3 % (0-3); Lymphocytes % 27 % (10-50); Monocytes % 4 % (2-9); Neutrophils % 66 % (42-76); Platelet Estimate Normal; RBC Morphology Normal; Total Cells Counted 100
[2024-02-12] MEDS: IOPAMIDOL-370 (76%);100ML BOTTLE 75 ML IV (02:19)
[2024-02-12] MEDS: SODIUM CHLORIDE 0.9% 10ML SYR (RAD ONLY) 10 ML IV (02:19)
[2024-02-12 03:13] VITALS: BP 114/68; PULSE 71; RESP 16; TEMP 36.9; O2SAT 96
--- NOTE | 2024-02-17 09:58 | PC.NURSE ---
states the urine culture results could be a contaminate due to pt chronic UTI although the infusion antibiotic that she is receiving at this time does not cover the bacteria that is seen on culture, wants pt to fu with who is following the pt to decide medicine, pt contacted and updated about culture, office contacted to confirm that results were received to MD. Per nurse results were faxed to [phone], to make sure they have the results. aware of interventions.
== END 2024-02-12 03:21 | disposition home or self-care (01) ==
PROVIDERS: Emergency Provider Emergency Medicine; PCP Internal Medicine
DX: N39.0 Urinary tract infection, site not specified (principal); B95.2 Enterococcus as the cause of diseases classified elsewhere; N20.0 Calculus of kidney; R10.30 Lower abdominal pain, unspecified; M54.59 Other low back pain
CPT/HCPCS: 74177; 80053; 81001; 81025; 85007; 85025; 87040; 87086; 96361; 96374; 96375; 99285; J2405; Q9967

== ENCOUNTER 2024-02-12 12:21 | Outpatient (CLI) | payer OTHER, SELFPAY ==
[2024-02-12] MEDS: SODIUM CHLORIDE 0.9% 10ML FLUSH SYRINGE 10 ML IV (12:41)
[2024-02-12 12:42] VITALS: BP 99/66; PULSE 60; RESP 18; TEMP 36.7; O2SAT 99
[2024-02-12] MEDS: SODIUM CHLORIDE 0.9% 50ML BAG 50 ML IV (12:42)
[2024-02-12] MEDS: ERTAPENEM SODIUM 1 GM in 0.9 % SODIUM CHLORIDE 50 ML IV (12:43)
[2024-02-12 13:20] VITALS: BP 109/65; PULSE 70; RESP 18; O2SAT 99
== END 2024-02-12 13:20 | disposition home or self-care (01) ==
LOC: INF 12:21
PROVIDERS: PCP Internal Medicine; Visit Provider Internal Medicine Adolescent Medicine
DX: N39.0 Urinary tract infection, site not specified (principal); B95.2 Enterococcus as the cause of diseases classified elsewhere
CPT/HCPCS: 96365; J1335

== ENCOUNTER 2024-02-13 12:30 | Outpatient (CLI) | payer OTHER, SELFPAY ==
[2024-02-13 12:47] VITALS: BP 114/67; PULSE 61; RESP 18; TEMP 36.3; O2SAT 98
[2024-02-13] MEDS: SODIUM CHLORIDE 0.9% 10ML FLUSH SYRINGE 10 ML IV (12:47)
[2024-02-13] MEDS: ERTAPENEM SODIUM 1 GM in 0.9 % SODIUM CHLORIDE 50 ML IV (12:47)
[2024-02-13] MEDS: SODIUM CHLORIDE 0.9% 50ML BAG 50 ML IV (12:47)
[2024-02-13 13:35] VITALS: BP 112/74; PULSE 58; RESP 18; O2SAT 98
== END 2024-02-13 13:37 | disposition home or self-care (01) ==
LOC: INF 12:30
PROVIDERS: PCP Internal Medicine; Visit Provider Internal Medicine Adolescent Medicine
DX: N39.0 Urinary tract infection, site not specified (principal); B95.2 Enterococcus as the cause of diseases classified elsewhere
CPT/HCPCS: 96365; J1335

== ENCOUNTER 2024-02-14 12:06 | Outpatient (CLI) | payer OTHER, SELFPAY ==
[2024-02-14 12:18] VITALS: BP 121/67; PULSE 84; RESP 16; TEMP 36.8; O2SAT 98
[2024-02-14] MEDS: SODIUM CHLORIDE 0.9% 10ML FLUSH SYRINGE 10 ML IV (12:18)
[2024-02-14] MEDS: ERTAPENEM SODIUM 1 GM in 0.9 % SODIUM CHLORIDE 50 ML IV (12:18)
[2024-02-14] MEDS: SODIUM CHLORIDE 0.9% 50ML BAG 50 ML IV (12:18)
[2024-02-14 12:55] VITALS: BP 126/69; PULSE 82; RESP 16; TEMP 36.8; O2SAT 98
== END 2024-02-14 13:00 | disposition home or self-care (01) ==
LOC: INF 12:06
PROVIDERS: PCP Internal Medicine; Visit Provider Internal Medicine Adolescent Medicine
DX: N39.0 Urinary tract infection, site not specified (principal); B95.2 Enterococcus as the cause of diseases classified elsewhere
CPT/HCPCS: 96365; J1335

== ENCOUNTER 2024-02-15 12:13 | Outpatient (CLI) | payer OTHER, SELFPAY ==
[2024-02-15] MEDS: ERTAPENEM SODIUM 1 GM in 0.9 % SODIUM CHLORIDE 50 ML IV (12:25)
== END 2024-02-15 23:59 | disposition home or self-care (01) ==
LOC: INF 12:14
PROVIDERS: PCP Internal Medicine; Visit Provider Internal Medicine Adolescent Medicine
DX: N39.0 Urinary tract infection, site not specified (principal); B95.2 Enterococcus as the cause of diseases classified elsewhere
CPT/HCPCS: 96365; J1335

== ENCOUNTER 2024-02-16 12:09 | Outpatient (CLI) | payer OTHER, SELFPAY ==
[2024-02-16] MEDS: ERTAPENEM SODIUM 1 GM in 0.9 % SODIUM CHLORIDE 50 ML IV (12:30)
== END 2024-02-16 23:59 | disposition home or self-care (01) ==
LOC: INF 12:09
PROVIDERS: PCP Internal Medicine; Visit Provider Internal Medicine Adolescent Medicine
DX: N39.0 Urinary tract infection, site not specified (principal); B95.2 Enterococcus as the cause of diseases classified elsewhere
CPT/HCPCS: 96365; J1335

== ENCOUNTER 2024-02-17 12:05 | Outpatient (CLI) | payer OTHER, SELFPAY ==
[2024-02-17 12:20] VITALS: BP 111/56; PULSE 72; RESP 16; TEMP 36.4; O2SAT 98
[2024-02-17] MEDS: SODIUM CHLORIDE 0.9% 50ML BAG 50 ML IV (12:20)
[2024-02-17] MEDS: ERTAPENEM SODIUM 1 GM in 0.9 % SODIUM CHLORIDE 50 ML IV (12:20)
[2024-02-17] MEDS: SODIUM CHLORIDE 0.9% 10ML FLUSH SYRINGE 10 ML IV (12:20)
[2024-02-17 12:55] VITALS: BP 116/78; PULSE 70; RESP 14; TEMP 36.4; O2SAT 98
== END 2024-02-17 13:00 | disposition home or self-care (01) ==
LOC: INF 12:05
PROVIDERS: PCP Internal Medicine; Visit Provider Internal Medicine Adolescent Medicine
DX: N39.0 Urinary tract infection, site not specified (principal); B95.2 Enterococcus as the cause of diseases classified elsewhere
CPT/HCPCS: 96365; J1335

== ENCOUNTER 2024-02-18 12:15 | Outpatient (CLI) | payer OTHER, SELFPAY ==
[2024-02-18 12:38] VITALS: BP 120/85; PULSE 65; RESP 18; O2SAT 93
[2024-02-18] MEDS: ERTAPENEM SODIUM 1 GM in 0.9 % SODIUM CHLORIDE 50 ML IV (12:38)
[2024-02-18] MEDS: 0.9 % SODIUM CHLORIDE 50 ML 100 ML IV (12:38)
[2024-02-18 13:40] VITALS: BP 120/72; PULSE 86; RESP 18; O2SAT 93
== END 2024-02-18 13:40 | disposition home or self-care (01) ==
LOC: INF 12:16
PROVIDERS: PCP Internal Medicine; Visit Provider Internal Medicine Adolescent Medicine
DX: N39.0 Urinary tract infection, site not specified (principal); B95.2 Enterococcus as the cause of diseases classified elsewhere
CPT/HCPCS: 96365; J1335

== ENCOUNTER 2024-02-19 12:17 | Outpatient (CLI) | payer OTHER, SELFPAY ==
[2024-02-19 12:45] VITALS: BP 121/69; PULSE 71; RESP 18; O2SAT 98
[2024-02-19] MEDS: SODIUM CHLORIDE 0.9% 50ML BAG 50 ML IV (12:45)
[2024-02-19] MEDS: ERTAPENEM SODIUM 1 GM in 0.9 % SODIUM CHLORIDE 50 ML IV (12:45)
[2024-02-19 13:15] VITALS: BP 107/69; PULSE 68
== END 2024-02-19 13:20 | disposition home or self-care (01) ==
LOC: INF 12:17
PROVIDERS: PCP Internal Medicine; Visit Provider Internal Medicine Adolescent Medicine
DX: N39.0 Urinary tract infection, site not specified (principal); B95.2 Enterococcus as the cause of diseases classified elsewhere
CPT/HCPCS: 96365; J1335

== ENCOUNTER 2024-02-24 14:31 | Outpatient (CLI) | payer OTHER, SELFPAY | END 2024-02-24 14:40 | disposition home or self-care (01) | LOC: INF 14:31 | PROVIDERS: PCP Internal Medicine; Visit Provider Internal Medicine | DX: N39.0 Urinary tract infection, site not specified (principal); B95.2 Enterococcus as the cause of diseases classified elsewhere | CPT/HCPCS: 96523 ==

== ENCOUNTER 2024-03-03 11:47 | Outpatient (CLI) | payer OTHER, SELFPAY | END 2024-03-03 12:05 | disposition home or self-care (01) | LOC: INF 11:48 | PROVIDERS: PCP Internal Medicine; Visit Provider Internal Medicine Adolescent Medicine | DX: N39.0 Urinary tract infection, site not specified (principal); B95.2 Enterococcus as the cause of diseases classified elsewhere; Z45.2 Encounter for adjustment and management of vascular access device | CPT/HCPCS: 96523 ==

== ENCOUNTER 2024-03-07 20:09 | Emergency (ER) | payer OTHER, SELFPAY ==
[2024-03-07 20:11] VITALS: BP 135/77; PULSE 92; RESP 18; TEMP 36.6; O2SAT 98; BMI 49.6
[2024-03-07 20:21] VITALS: BP 135/77; PULSE 93; RESP 20; O2SAT 95
[2024-03-07 20:30] VITALS: BP 130/89; PULSE 71; RESP 16; O2SAT 98
[2024-03-07 20:37] LABS: Microscopic, Urine URINE MICROSCOPIC (MICROSCOPIC)
[2024-03-07 20:39] LABS: Bilirubin,Urine Negative (Negative); Blood, Urine 2+ (Negative); Color,Urine YELLOW (Yellow); Glucose,Urine (UA) 3+ (Negative); Ketones,Urine Negative (Negative); Leukocyte Esterase,Urine 2+ (Negative); Nitrate,Urine Negative (Negative); PH,Urine 5.5 (5.0-8.5); Protein,Urine TRACE (Negative); Urobilinogen,Urine 0.2 EU/dl (0.2)
--- NOTE | 2024-03-07 20:39 | ED_ITS ---
Discharge Plan Disposition Patient Disposition: Home, Self-Care Chief Complaint: Allergic Reaction Prescriptions Prescriptions: No Action tizanidine [Zanaflex] 4 mg capsule 4 mg PO TIDP PRN (Reason: Muscle Spasm) spironolactone [Aldactone] 50 mg tablet 50 mg PO DAILY bumetanide 2 mg tablet 2 mg PO BID Entresto 24-26 mg tablet 1 tab PO BID pravastatin 10 mg tablet 10 mg PO DAILY Patient Comments: TAKE ONE TABLET BY MOUTH EVERY DAY AT BEDTIME albuterol sulfate [ProAir HFA] 90 mcg/actuation HFA aerosol inhaler 2 puff IH Q4HP PRN (Reason: Shortness Of Breath) promethazine 25 mg tablet 12.5 mg PO Q4HP PRN (Reason: Nausea) omeprazole 20 mg capsule,delayed release(DR/EC) 20 mg PO DAILY nebivolol 5 MG tablet 5 mg PO DAILY tramadol 50 MG tablet 100 mg PO Q6HP PRN (Reason: Moderate Pain) fluticasone propion-salmeterol 28 PUFFS/50 MCG inhaler 1 puff IH BID ibuprofen 800 MG tablet 800 mg PO TIDP PRN (Reason: Mild Pain,Fever,Headache) acetaminophen 325 MG tablet 650 mg PO Q4HP PRN (Reason: Mild Pain) 0RF metformin 500 mg tablet 500 mg PO BIDWMEAL Patient Comments: TAKE ONE TABLET BY MOUTH TWICE DAILY phenazopyridine 200 mg tablet 200 mg PO TID methenamine hippurate 1 gram tablet 1 g PO BID ascorbic acid (vitamin C) [Vitamin C] 500 mg tablet 500 mg PO DAILY Patient Comments: TAKE ONE TABLET BY MOUTH EVERY DAY Glyxambi 25-5 mg tablet 1 tab PO AM Patient Comments: TAKE ONE TABLET BY MOUTH ONCE DAILY IN THE MORNING ipratropium-albuterol 0.5 mg-3 mg(2.5 mg base)/3 mL solution for nebulization 3 ml INHALATION QID Patient Comments: INHALE THE CONTENTS OF 1 VIAL VIA NEBULIZER FOUR TIMES DAILY DIRECTED cetirizine [Zyrtec] 10 mg Tablet 10 mg PO DAILY montelukast [Singulair] 10 mg Tablet 10 mg PO HS ertapenem 1 gram Recon Soln 1 g IV Q24H 13 Days Qty: 0 0RF Referrals Follow up/Referrals: Juarez Griffin MD [Primary Care Provider] - See instructions Activity Restrictions/Add. Instructions Additional Instructions/Restrictions: At this time it was felt you are safe to be discharged home. If new or worsening symptoms please do not hesitate to return the emergency department. Please return tomorrow for another infusion and arrange follow-up on Saturday for outpatient infusion with either your family doctor or your urologist. Clinical Impressions Clinical Impression: UTI (urinary tract infection) Discharge ED Provider: David Molina General Adult HPI General Chief complaint: Allergic Reaction Stated complaint: reaction to antibiotic Time Seen by Provider: 03/07/24 20:14 Mode of Arrival: Wheelchair Source of Information: Patient Limitations: No Limitations Description of Symptoms (Recalled from ER Triage Doc. by RN): Pt presents to the ED for an allergic reaction to Augmentin. Pt has been on several rounds of antibiotics for an infected kidney stone. Pt states she feels fine but she's concerned about not having antibiotics over the weekend. History of Present Illness HPI narrative: Patient is a 48-year-old female past medical history of nephrolithiasis, complicated urinary tract infections which are multidrug-resistant who presents emergency department for evaluation of urinary tract infection. Patient is seeing a urologist who is planning on taking the stones out of her kidneys next month. She has a history of urinary tract infections which are multidrug- resistant Proteus. Earlier this week she was diagnosed with urinary tract infection and started on Macrobid which was converted to Augmentin. Unfort unately patient had lip swelling and chest tightness to Augmentin for which she self discontinued yesterday and had resolution of symptoms after taking Pepcid and Benadryl. She is worried about going throughout the weekend without having urinary tract infection coverage. Patient has dysuria however no other acute complaints and wishes to transition to another antibiotic. Per review of culture data patient has multidrug-resistant Proteus that is sensitive only to Augmentin cefepime ertapenem gentamicin tobramycin and Bactrim. Patient is allergic to Bactrim and Augmentin so IV antibiotics are the only option. Related Data Home Medications Medication Instructions Recorded Confirmed tizanidine 4 mg capsule (Zanaflex) 4 mg PO TIDP PRN Muscle Spasm 02/22/20 02/14/24 nebivolol 5 mg tablet 5 mg PO DAILY 12/21/21 02/14/24 tramadol 50 mg tablet 100 mg PO Q6HP PRN Moderate Pain 12/22/21 02/14/24 albuterol sulfate 90 mcg/actuation 2 puff inhalation Q4HP PRN 12/28/21 02/14/24 aerosol inhaler (ProAir HFA) Shortness Of Breath promethazine 25 mg tablet 12.5 mg PO Q4HP PRN Nausea 03/30/22 02/14/24 spironolactone 50 mg tablet 50 mg PO DAILY 03/30/22 02/14/24 (Aldactone) omeprazole 20 mg capsule,delayed 20 mg PO DAILY 04/24/22 02/14/24 release fluticasone 250 mcg-salmeterol 50 1 puff inhalation BID 04/27/22 02/14/24 mcg/dose blistr powdr for inhalation ibuprofen 800 mg tablet 800 mg PO TIDP PRN Mild 05/01/22 02/14/24 Pain,Fever,Headache bumetanide 2 mg tablet 2 mg PO BID 03/04/23 02/14/24 pravastatin 10 mg tablet 10 mg PO DAILY 03/04/23 02/14/24 sacubitril 24 mg-valsartan 26 mg 1 tab PO BID 03/04/23 02/14/24 tablet (Entresto) ascorbic acid (vitamin C) 500 mg 500 mg PO DAILY 02/06/24 02/14/24 tablet (Vitamin C) cetirizine 10 mg tablet (Zyrtec) 10 mg PO DAILY 02/06/24 02/14/24 empagliflozin 25 mg-linagliptin 5 1 tab PO AM 02/06/24 02/14/24 mg tablet (Glyxambi) ipratropium 0.5 mg-albuterol 3 mg 3 ml inhalation QID 02/06/24 02/14/24 (2.5 mg base)/3 mL nebulization soln metformin 500 mg tablet 500 mg PO BIDWMEAL 02/06/24 02/14/24 methenamine hippurate 1 gram tablet 1 g PO BID 02/06/24 02/14/24 montelukast 10 mg tablet 10 mg PO HS 02/06/24 02/14/24 (Singulair) phenazopyridine 200 mg tablet 200 mg PO TID 02/06/24 02/14/24 Previous Rx's Medication Instructions Recorded acetaminophen 325 mg tablet 650 mg (2 x 325 mg) PO Q4HP PRN 05/04/22 Mild Pain ertapenem 1 gram solution for 1 g IV Q24H 13 days #0 ea 02/06/24 injection Allergies Allergy/AdvReac Type Severity Reaction Status Date / Time aspirin Allergy Severe S-DIFF. Verified 02/14/24 15:08 BREATHING bee venom protein (honey bee) Allergy Severe Anaphylaxis Verified 02/14/24 15:08 Bleach (Sodium Hypochlorite) Allergy Severe diff. Verified 02/14/24 15:08 breathing, dizzy pneumococcal vaccine Allergy Verified 02/14/24 15:08 sulfamethoxazole Allergy Verified 02/14/24 15:08 [From Bactrim] trimethoprim [From Bactrim] Allergy Verified 02/14/24 15:08 sucralose AdvReac Severe breathing Verified 02/14/24 15:08 [From SUCRALOSE (FOOD/DRUG)] problems PFSH REPLACED BY [facility] Disclaimer: The information contained in this section may have been updated after the patient was seen, as this information can be updated by other users. Medical History (Updated 03/07/24 @ 21:21 by David Molina MD) Syncopal episodes Right flank pain Adnexal mass Septic shock Severe sepsis with acute organ dysfunction Cellulitis of right wrist Pneumonia Asthma with exacerbation Syncope Altered mental status Surgical History History of cholecystectomy S/P right oophorectomy S/P hysterectomy History of tubal ligation Family History Other Alzheimer disease Bipolar 1 disorder Dementia Family history of diabetes mellitus type II Family history of myocardial infarction Lung cancer Lupus Social History Smoking Status: Never smoker second hand exposure: No alcohol intake: current alcohol intake frequency: holidays/special occasions only substance use type: denies use current occupational status: unemployed and disabled Travel in the last 8 weeks: None household members: spouse housing: house current occupational exposures/hazards: No caffeine: Yes ROS Obtained: Yes Systems reviewed as appropriate & no additional complaints except as documented Physical Exam General General appearance: alert and in no apparent distress Head Head exam: atraumatic and normocephalic Eye Eye exam: Present PERRL ENT ENT exam: Present mucous membranes moist Neck Neck exam: Present normal inspection Chest Chest inspection: Present normal inspection and symmetric chest wall rise Respiratory Respiratory exam: Absent respiratory distress Cardiovascular Cardiovascular exam: Present regular rate and normal rhythm Abdominal Exam Abdominal exam: Present soft; Absent tenderness Extremities Exam Extremities exam: Present normal inspection Neurological Exam Neurological exam: Present alert Psychiatric Psychiatric exam: Present normal affect Skin Skin exam: Present warm and dry Medical Decision Making Harjinder Inquiry Pt receiving controlled substance: No Vital Signs: 03/07/24 20:11 03/07/24 20:21 03/07/24 20:30 Temperature 97.9 F Temperature Source Oral Pulse Rate 93 H 71 Pulse Rate [Left] 92 H Respiratory Rate 18 20 16 Blood Pressure 135/77 130/89 Blood Pressure [Right Arm] 135/77 Blood Pressure Mean [Right Arm] 96 02 Sat by Pulse Oximetry 98 95 98 Oxygen Delivery Method Room Air Room Air Room Air 03/07/24 21:01 Temperature Temperature Source Pulse Rate 89 Pulse Rate [Left] Respiratory Rate 18 Blood Pressure 127/85 Blood Pressure [Right Arm] Blood Pressure Mean [Right Arm] 02 Sat by Pulse Oximetry 96 Oxygen Delivery Method Room Air Lab Data Lab Results 03/07/24 20:17: Urine Color Yellow, Urine Appearance Slightly cloudy, Urine pH 5.5, Ur Specific [place] 1.020, Urine Protein Trace, Urine Glucose (UA) 3+, Urine Ketones Negative, Urine Blood 2+, Urine Nitrate Negative, Urine Bilirubin Negative, Urine Urobilinogen 0.2, Ur Leukocyte Esterase 2+ A, Urine RBC 5-10, Urine WBC 10-20, Ur Squamous Epith Cells Occasional, Urine Bacteria 1+ Orders (Tests/Meds): ED MEDICATIONS Discontinued Medications Generic Name Dose Route Start Last Admin Trade Name Rustamq PRN Reason Stop Dose Admin Ertapenem 1 gm/ Sodium 50 mls @ 100 mls/hr 03/07/24 20:39 03/07/24 20:52 Chloride IV 03/07/24 20:40 100 mls/hr ONCE ONE Administration ORDERS Category Date Time Status UA [Urinalysis and Microscopic] Stat Lab 03/07/24 20:17 Completed Urine Culture Stat Micro 03/07/24 20:17 Received Medical Decision Narrative: Patient is a 48-year-old female past medical history described above presents emergency department for evaluation of dysuria in the setting of known urinary tract infection with suspected reaction to her oral antibiotics. Patient is hemodynamically stable nontoxic-appearing upon arrival, afebrile. Shared decision-making discussion was had, patient wishes to just receive antibiotics and have an additional urinalysis. Workup was considered however patient is not tachycardic, no fever, otherwise well-appearing therefore will be deferred. Patient will be given an infusion of ertapenem through her PICC line. Urinalysis obtained and sent off for culture. Urinalysis interpreted by me and consistent with nitrite negative infection. Patient is appropriate for discharge at this time and was instructed to follow-up tomorrow for subsequent dose given that we cannot arrange infusions from the ER and she will be transition to infusions under the care of her primary care provider or urologist starting on Saturday. Critical Care Critical Care Time Critical Care Time: No
[2024-03-07 20:40] LABS: Appearance,Urine Slightly Cloudy (Clear)
[2024-03-07] MEDS: ERTAPENEM SODIUM 1 GM in 0.9 % SODIUM CHLORIDE 50 ML IV (20:52)
[2024-03-07 20:59] LABS: Bacteria,Urine 1+ /lpf; Squamous Epithelial Cell,Urine Occasional #/hpf (0-5)
[2024-03-07 21:01] VITALS: BP 127/85; PULSE 89; RESP 18; O2SAT 96
[2024-03-07 21:30] VITALS: BP 127/85; PULSE 98; RESP 16; TEMP 36.7; O2SAT 95
--- NOTE | 2024-03-13 08:48 | PC.NURSE ---
discussed urine culture with , pt is multi drug resistant per chart visit, pt was given invanz and fu with pcp for continued infusions, per chart pt is getting these daily for 5 days. [place]
== END 2024-03-07 21:35 | disposition home or self-care (01) ==
PROVIDERS: Emergency Provider Emergency Medicine; PCP Internal Medicine
DX: N39.0 Urinary tract infection, site not specified (principal); B96.4 Proteus (mirabilis) (morganii) as the cause of diseases classified elsewhere; B96.29 Other Escherichia coli [E. coli] as the cause of diseases classified elsewhere; R30.0 Dysuria; Z87.442 Personal history of urinary calculi
CPT/HCPCS: 81001; 87086; 87088; 87186; 96374; 99284; J1335

== ENCOUNTER 2024-03-08 15:04 | Emergency (ER) | payer OTHER, SELFPAY ==
[2024-03-08 15:09] VITALS: BP 108/75; PULSE 73; RESP 16; TEMP 37.7; O2SAT 96; BMI 35.4
--- NOTE | 2024-03-08 15:22 | ED_ITS ---
Discharge Plan Disposition Patient Disposition: Home, Self-Care Prescriptions Prescriptions: No Action tizanidine [Zanaflex] 4 mg capsule 4 mg PO TIDP PRN (Reason: Muscle Spasm) spironolactone [Aldactone] 50 mg tablet 50 mg PO DAILY bumetanide 2 mg tablet 2 mg PO BID Entresto 24-26 mg tablet 1 tab PO BID pravastatin 10 mg tablet 10 mg PO DAILY Patient Comments: TAKE ONE TABLET BY MOUTH EVERY DAY AT BEDTIME albuterol sulfate [ProAir HFA] 90 mcg/actuation HFA aerosol inhaler 2 puff IH Q4HP PRN (Reason: Shortness Of Breath) promethazine 25 mg tablet 12.5 mg PO Q4HP PRN (Reason: Nausea) omeprazole 20 mg capsule,delayed release(DR/EC) 20 mg PO DAILY nebivolol 5 MG tablet 5 mg PO DAILY tramadol 50 MG tablet 100 mg PO Q6HP PRN (Reason: Moderate Pain) fluticasone propion-salmeterol 28 PUFFS/50 MCG inhaler 1 puff IH BID ibuprofen 800 MG tablet 800 mg PO TIDP PRN (Reason: Mild Pain,Fever,Headache) acetaminophen 325 MG tablet 650 mg PO Q4HP PRN (Reason: Mild Pain) 0RF metformin 500 mg tablet 500 mg PO BIDWMEAL Patient Comments: TAKE ONE TABLET BY MOUTH TWICE DAILY phenazopyridine 200 mg tablet 200 mg PO TID methenamine hippurate 1 gram tablet 1 g PO BID ascorbic acid (vitamin C) [Vitamin C] 500 mg tablet 500 mg PO DAILY Patient Comments: TAKE ONE TABLET BY MOUTH EVERY DAY Glyxambi 25-5 mg tablet 1 tab PO AM Patient Comments: TAKE ONE TABLET BY MOUTH ONCE DAILY IN THE MORNING ipratropium-albuterol 0.5 mg-3 mg(2.5 mg base)/3 mL solution for nebulization 3 ml INHALATION QID Patient Comments: INHALE THE CONTENTS OF 1 VIAL VIA NEBULIZER FOUR TIMES DAILY DIRECTED cetirizine [Zyrtec] 10 mg Tablet 10 mg PO DAILY montelukast [Singulair] 10 mg Tablet 10 mg PO HS ertapenem 1 gram Recon Soln 1 g IV Q24H 13 Days Qty: 0 0RF Referrals Follow up/Referrals: Juarez Griffin MD [Primary Care Provider] - See instructions Activity Restrictions/Add. Instructions Additional Instructions/Restrictions: At this time it was felt you are safe to be discharged home. If new or worsening symptoms please do not hesitate to return the emergency department. Please arrange infusion with your urologist or family doctor tomorrow as discussed. Clinical Impressions Clinical Impression: UTI (urinary tract infection) Instructions Patient Instructions: DI for Urinary Tract Infection (UTI) Discharge ED Provider: David Molina General Adult HPI General Chief complaint: Recheck/Abnormal Lab/Rx Stated complaint: IV infusion Time Seen by Provider: 03/08/24 15:12 History of Present Illness HPI narrative: Patient is a 48-year-old female with past medical history of complicated urinary tract infections, most notably multidrug-resistant Proteus Mirabella's, has indwelling PICC line, pending surgical removal of nephrolithiasis next month who I saw yesterday who presents emergency department for antibiotic administration. Patient is allergic to all oral therapies that the Proteus is sensitive to and requires IV antibiotics. She had previous infusion with resolution of infection however has had resurgence of her infection and had a suspected allergic reaction to amoxicillin earlier this week which she self discontinued. She presented to the emergency department yesterday and got a dose of imipenem through her PICC line which her urinary tract infection is sensitive to. She has no additional complaints and presents for her repeat administration of imipenem. Related Data Home Medications Medication Instructions Recorded Confirmed tizanidine 4 mg capsule (Zanaflex) 4 mg PO TIDP PRN Muscle Spasm 02/22/20 02/14/24 nebivolol 5 mg tablet 5 mg PO DAILY 12/21/21 02/14/24 tramadol 50 mg tablet 100 mg PO Q6HP PRN Moderate Pain 12/22/21 02/14/24 albuterol sulfate 90 mcg/actuation 2 puff inhalation Q4HP PRN 12/28/21 02/14/24 aerosol inhaler (ProAir HFA) Shortness Of Breath promethazine 25 mg tablet 12.5 mg PO Q4HP PRN Nausea 03/30/22 02/14/24 spironolactone 50 mg tablet 50 mg PO DAILY 03/30/22 02/14/24 (Aldactone) omeprazole 20 mg capsule,delayed 20 mg PO DAILY 04/24/22 02/14/24 release fluticasone 250 mcg-salmeterol 50 1 puff inhalation BID 04/27/22 02/14/24 mcg/dose blistr powdr for inhalation ibuprofen 800 mg tablet 800 mg PO TIDP PRN Mild 05/01/22 02/14/24 Pain,Fever,Headache bumetanide 2 mg tablet 2 mg PO BID 03/04/23 02/14/24 pravastatin 10 mg tablet 10 mg PO DAILY 03/04/23 02/14/24 sacubitril 24 mg-valsartan 26 mg 1 tab PO BID 03/04/23 02/14/24 tablet (Entresto) ascorbic acid (vitamin C) 500 mg 500 mg PO DAILY 02/06/24 02/14/24 tablet (Vitamin C) cetirizine 10 mg tablet (Zyrtec) 10 mg PO DAILY 02/06/24 02/14/24 empagliflozin 25 mg-linagliptin 5 1 tab PO AM 02/06/24 02/14/24 mg tablet (Glyxambi) ipratropium 0.5 mg-albuterol 3 mg 3 ml inhalation QID 02/06/24 02/14/24 (2.5 mg base)/3 mL nebulization soln metformin 500 mg tablet 500 mg PO BIDWMEAL 02/06/24 02/14/24 methenamine hippurate 1 gram tablet 1 g PO BID 02/06/24 02/14/24 montelukast 10 mg tablet 10 mg PO HS 02/06/24 02/14/24 (Singulair) phenazopyridine 200 mg tablet 200 mg PO TID 02/06/24 02/14/24 Previous Rx's Medication Instructions Recorded acetaminophen 325 mg tablet 650 mg (2 x 325 mg) PO Q4HP PRN 05/04/22 Mild Pain ertapenem 1 gram solution for 1 g IV Q24H 13 days #0 ea 02/06/24 injection Allergies Allergy/AdvReac Type Severity Reaction Status Date / Time aspirin Allergy Severe S-DIFF. Verified 02/14/24 15:08 BREATHING bee venom protein (honey bee) Allergy Severe Anaphylaxis Verified 02/14/24 15:08 Bleach (Sodium Hypochlorite) Allergy Severe diff. Verified 02/14/24 15:08 breathing, dizzy pneumococcal vaccine Allergy Verified 02/14/24 15:08 sulfamethoxazole Allergy Verified 02/14/24 15:08 [From Bactrim] trimethoprim [From Bactrim] Allergy Verified 02/14/24 15:08 sucralose AdvReac Severe breathing Verified 02/14/24 15:08 [From SUCRALOSE (FOOD/DRUG)] problems [facility] Disclaimer: The information contained in this section may have been updated after the patient was seen, as this information can be updated by other users. Medical History (Updated 03/08/24 @ 15:25 by Dvaid Molina MD) Syncopal episodes Right flank pain Adnexal mass Septic shock Severe sepsis with acute organ dysfunction Cellulitis of right wrist Pneumonia Asthma with exacerbation Syncope Altered mental status Surgical History History of cholecystectomy S/P right oophorectomy S/P hysterectomy History of tubal ligation Family History Other Alzheimer disease Bipolar 1 disorder Dementia Family history of diabetes mellitus type II Family history of myocardial infarction Lung cancer Lupus Social History Smoking Status: Never smoker second hand exposure: No alcohol intake: current alcohol intake frequency: holidays/special occasions only substance use type: denies use current occupational status: unemployed and disabled Travel in the last 8 weeks: None household members: spouse housing: house current occupational exposures/hazards: No caffeine: Yes ROS Obtained: Yes Systems reviewed as appropriate & no additional complaints except as documented Physical Exam General General appearance: alert and in no apparent distress Head Head exam: atraumatic and normocephalic Eye Eye exam: Present PERRL ENT ENT exam: Present mucous membranes moist Neck Neck exam: Present normal inspection Chest Chest inspection: Present normal inspection and symmetric chest wall rise Respiratory Respiratory exam: Absent respiratory distress Cardiovascular Cardiovascular exam: Present regular rate and normal rhythm Abdominal Exam Abdominal exam: Present soft Extremities Exam Extremities exam: Present normal inspection Neurological Exam Neurological exam: Present alert Psychiatric Psychiatric exam: Present normal affect Skin Skin exam: Present warm and dry Medical Decision Making Harjinder Inquiry Pt receiving controlled substance: No Vital Signs: 03/08/24 15:09 03/08/24 16:12 Temperature 99.9 F H 99.6 F Temperature Source Oral Oral Pulse Rate 75 Pulse Rate [Right] 73 Respiratory Rate 16 17 Blood Pressure 123/70 Blood Pressure [Right Arm] 108/75 L Blood Pressure Mean [Right Arm] 86 Blood Pressure Source [Right Arm] Automatic Cuff 02 Sat by Pulse Oximetry 96 Oxygen Delivery Method Room Air Room Air Orders (Tests/Meds): ED MEDICATIONS Discontinued Medications Generic Name Dose Route Start Last Admin Trade Name Freq PRN Reason Stop Dose Admin Ertapenem 1 gm/ Sodium 50 mls @ 100 mls/hr 03/08/24 15:14 03/08/24 15:26 Chloride IV 03/08/24 15:15 100 mls/hr ONCE ONE Administration Medical Decision Narrative: In summary patient is a 48-year-old female past medical history described above presents emergency department for evaluation of antibiotic administration with known multidrug-resistant Proteus Mirabella's infection previously with current urinary tract infection. Patient is hemodynamically stable nontoxic-appearing upon arrival, afebrile. No concern for sepsis therefore workup with labs and imaging was considered but will be deferred. Urinalysis was obtained yesterday and consistent with infection, culture is pending. Given this patient will receive a dose of imipenem and is appropriate for discharge will follow-up with PCP or urology tomorrow to arrange outpatient infusion. Critical Care Critical Care Time Critical Care Time: No
[2024-03-08] MEDS: ERTAPENEM SODIUM 1 GM in 0.9 % SODIUM CHLORIDE 50 ML IV (15:26)
[2024-03-08 16:12] VITALS: BP 123/70; PULSE 75; RESP 17; TEMP 37.6; O2SAT 94
== END 2024-03-08 16:32 | disposition home or self-care (01) ==
PROVIDERS: Emergency Provider Emergency Medicine; PCP Internal Medicine
DX: N39.0 Urinary tract infection, site not specified (principal)
CPT/HCPCS: 96374; 99284; J1335

== ENCOUNTER 2024-03-09 12:37 | Outpatient (CLI) | payer OTHER, SELFPAY ==
[2024-03-09 13:08] VITALS: BP 122/91; PULSE 81; RESP 18; TEMP 36.6; O2SAT 96
[2024-03-09] MEDS: ERTAPENEM SODIUM 1 GM in 0.9 % SODIUM CHLORIDE 50 ML IV (13:08)
[2024-03-09 13:50] VITALS: BP 110/69; PULSE 68; RESP 18; O2SAT 97
[2024-03-09] MEDS: SODIUM CHLORIDE 0.9% 10ML FLUSH SYRINGE 10 ML IV (14:03)
[2024-03-09] MEDS: SODIUM CHLORIDE 0.9% 50ML BAG 50 ML IV (14:04)
== END 2024-03-09 14:15 | disposition home or self-care (01) ==
LOC: INF 12:39
PROVIDERS: PCP Internal Medicine
DX: N39.0 Urinary tract infection, site not specified (principal)
CPT/HCPCS: 96365; J1335

== ENCOUNTER 2024-03-10 13:13 | Outpatient (CLI) | payer OTHER, SELFPAY ==
[2024-03-10 13:30] VITALS: BP 93/49; PULSE 76; RESP 18; TEMP 36.7; O2SAT 96
[2024-03-10] MEDS: ERTAPENEM SODIUM 1 GM in 0.9 % SODIUM CHLORIDE 50 ML IV (13:30)
[2024-03-10] MEDS: SODIUM CHLORIDE 0.9% 50ML BAG 50 ML IV (13:30)
[2024-03-10] MEDS: SODIUM CHLORIDE 0.9% 10ML FLUSH SYRINGE 10 ML IV (13:30)
[2024-03-10 14:00] VITALS: BP 128/71; PULSE 76
== END 2024-03-10 14:10 | disposition home or self-care (01) ==
LOC: INF 13:15
PROVIDERS: PCP Internal Medicine
DX: N39.0 Urinary tract infection, site not specified (principal)
CPT/HCPCS: 96365; J1335

== ENCOUNTER 2024-03-11 13:41 | Outpatient (CLI) | payer OTHER, SELFPAY ==
[2024-03-11 13:54] VITALS: BP 109/61; PULSE 70; RESP 18; TEMP 36.6; O2SAT 99
[2024-03-11] MEDS: ERTAPENEM SODIUM 1 GM in 0.9 % SODIUM CHLORIDE 50 ML IV (13:55)
[2024-03-11] MEDS: SODIUM CHLORIDE 0.9% 10ML FLUSH SYRINGE 10 ML IV (13:55)
[2024-03-11] MEDS: SODIUM CHLORIDE 0.9% 50ML BAG 50 ML IV (13:55)
[2024-03-11 14:40] VITALS: BP 115/68; PULSE 76; RESP 18; O2SAT 99
== END 2024-03-11 15:02 | disposition home or self-care (01) ==
LOC: INF 13:41
PROVIDERS: PCP Internal Medicine
DX: N39.0 Urinary tract infection, site not specified (principal); B96.4 Proteus (mirabilis) (morganii) as the cause of diseases classified elsewhere; B96.29 Other Escherichia coli [E. coli] as the cause of diseases classified elsewhere
CPT/HCPCS: 96365; J1335

== ENCOUNTER 2024-03-12 13:07 | Outpatient (CLI) | payer OTHER, SELFPAY ==
[2024-03-12 13:23] VITALS: BP 108/64; PULSE 57; RESP 16; TEMP 36.6; O2SAT 96
[2024-03-12] MEDS: SODIUM CHLORIDE 0.9% 50ML BAG 50 ML IV (13:23)
[2024-03-12] MEDS: ERTAPENEM SODIUM 1 GM in 0.9 % SODIUM CHLORIDE 50 ML IV (13:23)
[2024-03-12] MEDS: SODIUM CHLORIDE 0.9% 10ML FLUSH SYRINGE 10 ML IV (13:24)
[2024-03-12 14:02] VITALS: BP 113/58; PULSE 59; RESP 16; TEMP 36.6; O2SAT 96
== END 2024-03-12 14:05 | disposition home or self-care (01) ==
LOC: INF 13:08
PROVIDERS: PCP Internal Medicine
DX: N39.0 Urinary tract infection, site not specified (principal); B96.4 Proteus (mirabilis) (morganii) as the cause of diseases classified elsewhere; B96.29 Other Escherichia coli [E. coli] as the cause of diseases classified elsewhere
CPT/HCPCS: 96365; J1335

== ENCOUNTER 2024-03-13 12:40 | Outpatient (CLI) | payer OTHER, SELFPAY ==
[2024-03-13 12:55] VITALS: BP 134/76; PULSE 51; RESP 18; TEMP 36.7; O2SAT 98
[2024-03-13] MEDS: ERTAPENEM SODIUM 1 GM in 0.9 % SODIUM CHLORIDE 50 ML IV (12:55)
[2024-03-13] MEDS: SODIUM CHLORIDE 0.9% 50ML BAG 50 ML IV (12:55)
[2024-03-13 12:57] VITALS: BMI 47.9
[2024-03-13 13:30] VITALS: BP 122/73; PULSE 49
[2024-03-13 13:35] LABS: Chloride 107 mmol/L (98-107)
[2024-03-13 13:36] LABS: Potassium 3.8 mmoL/L (3.5-5.1); Sodium 137 mmol/L (136-145)
[2024-03-13 13:39] LABS: Anion Gap 9.8 mEq/L (5-15); Blood Urea Nitrogen 18 mg/dl (7-17); Calcium 9.2 mg/dl (8.4-10.2); Carbon Dioxide 24 mmol/L (22.0-30.0); Creatinine Clearance Estimated 80 mL/min (50-200); Estimated Glomerular Filt Rate 89 ml/min (>60); GFR (African American) 107 ML/MIN (>60); Glucose 118 mg/dl (74-100)
== END 2024-03-13 13:35 | disposition home or self-care (01) ==
LOC: INF 12:40
PROVIDERS: PCP Internal Medicine
DX: N39.0 Urinary tract infection, site not specified (principal); B96.4 Proteus (mirabilis) (morganii) as the cause of diseases classified elsewhere; B96.29 Other Escherichia coli [E. coli] as the cause of diseases classified elsewhere
CPT/HCPCS: 36592; 80048; 96365; J1335

== ENCOUNTER 2024-03-14 13:30 | Outpatient (CLI) | payer OTHER, SELFPAY ==
[2024-03-14] MEDS: ERTAPENEM SODIUM 1 GM in 0.9 % SODIUM CHLORIDE 50 ML IV (13:50)
== END 2024-03-14 23:59 | disposition home or self-care (01) ==
LOC: INF 13:30
PROVIDERS: PCP Internal Medicine; Visit Provider Internal Medicine
DX: N39.0 Urinary tract infection, site not specified (principal); B96.4 Proteus (mirabilis) (morganii) as the cause of diseases classified elsewhere; B96.29 Other Escherichia coli [E. coli] as the cause of diseases classified elsewhere
CPT/HCPCS: 96365; J1335

== ENCOUNTER 2024-03-15 13:07 | Outpatient (CLI) | payer OTHER, SELFPAY ==
[2024-03-15] MEDS: ERTAPENEM SODIUM 1 GM in 0.9 % SODIUM CHLORIDE 50 ML IV (13:20)
[2024-03-15 13:36] VITALS: BP 95/58; PULSE 52; RESP 16; TEMP 36.3; O2SAT 96
== END 2024-03-15 23:59 | disposition home or self-care (01) ==
PROVIDERS: PCP Internal Medicine; Visit Provider Internal Medicine
DX: N39.0 Urinary tract infection, site not specified (principal); B96.4 Proteus (mirabilis) (morganii) as the cause of diseases classified elsewhere; B96.29 Other Escherichia coli [E. coli] as the cause of diseases classified elsewhere
CPT/HCPCS: 96365; J1335

== ENCOUNTER 2024-03-16 13:04 | Outpatient (CLI) | payer OTHER, SELFPAY ==
[2024-03-16 13:25] VITALS: BP 101/47; PULSE 56; RESP 18; TEMP 36.6; O2SAT 96
[2024-03-16] MEDS: ERTAPENEM SODIUM 1 GM in 0.9 % SODIUM CHLORIDE 50 ML IV (13:25)
[2024-03-16] MEDS: SODIUM CHLORIDE 0.9% 50ML BAG 50 ML IV (13:25)
[2024-03-16] MEDS: SODIUM CHLORIDE 0.9% 10ML FLUSH SYRINGE 10 ML IV (13:25)
[2024-03-16 14:00] VITALS: BP 104/57; PULSE 54
== END 2024-03-16 14:05 | disposition home or self-care (01) ==
LOC: INF 13:04
PROVIDERS: PCP Internal Medicine; Visit Provider Internal Medicine
DX: N39.0 Urinary tract infection, site not specified (principal); B96.4 Proteus (mirabilis) (morganii) as the cause of diseases classified elsewhere; B96.29 Other Escherichia coli [E. coli] as the cause of diseases classified elsewhere
CPT/HCPCS: 96365; J1335

== ENCOUNTER 2024-03-17 12:55 | Outpatient (CLI) | payer OTHER, SELFPAY ==
[2024-03-17 13:10] VITALS: BP 101/59; PULSE 72; RESP 18; TEMP 36.3; O2SAT 95
[2024-03-17] MEDS: ERTAPENEM SODIUM 1 GM in 0.9 % SODIUM CHLORIDE 50 ML IV (13:15)
[2024-03-17 13:55] VITALS: BP 109/53; PULSE 76; RESP 18; O2SAT 96
[2024-03-17] MEDS: SODIUM CHLORIDE 0.9% 10ML FLUSH SYRINGE 10 ML IV (15:35)
[2024-03-17] MEDS: SODIUM CHLORIDE 0.9% 50ML BAG 50 ML IV (15:36)
== END 2024-03-17 14:00 | disposition home or self-care (01) ==
LOC: INF 12:55
PROVIDERS: PCP Internal Medicine; Visit Provider Internal Medicine
DX: N39.0 Urinary tract infection, site not specified (principal); B96.4 Proteus (mirabilis) (morganii) as the cause of diseases classified elsewhere; B96.29 Other Escherichia coli [E. coli] as the cause of diseases classified elsewhere
CPT/HCPCS: 96365; J1335

== ENCOUNTER 2024-03-18 12:43 | Outpatient (CLI) | payer OTHER, SELFPAY ==
[2024-03-18 12:54] VITALS: BP 110/75; PULSE 68; RESP 20; TEMP 36.4; O2SAT 94
[2024-03-18] MEDS: ERTAPENEM SODIUM 1 GM in 0.9 % SODIUM CHLORIDE 50 ML IV (12:54)
[2024-03-18] MEDS: SODIUM CHLORIDE 0.9% 50ML BAG 50 ML IV (12:54)
[2024-03-18] MEDS: SODIUM CHLORIDE 0.9% 10ML FLUSH SYRINGE 10 ML IV (12:58)
[2024-03-18 13:40] VITALS: BP 108/68; PULSE 69; RESP 20; O2SAT 94
== END 2024-03-18 13:40 | disposition home or self-care (01) ==
LOC: INF 12:43
PROVIDERS: PCP Internal Medicine; Visit Provider Internal Medicine
DX: N39.0 Urinary tract infection, site not specified (principal); B96.4 Proteus (mirabilis) (morganii) as the cause of diseases classified elsewhere; B96.29 Other Escherichia coli [E. coli] as the cause of diseases classified elsewhere
CPT/HCPCS: 96365; J1335

== ENCOUNTER 2024-03-19 11:08 | Outpatient (CLI) | payer OTHER, SELFPAY ==
[2024-03-19] MEDS: SODIUM CHLORIDE 0.9% 50ML BAG 50 ML IV (11:29)
[2024-03-19 11:30] VITALS: BP 116/76; PULSE 54; RESP 16; TEMP 36.4; O2SAT 97
[2024-03-19] MEDS: ERTAPENEM SODIUM 1 GM in 0.9 % SODIUM CHLORIDE 50 ML IV (11:30)
[2024-03-19] MEDS: SODIUM CHLORIDE 0.9% 10ML FLUSH SYRINGE 10 ML IV (11:30)
[2024-03-19] MEDS: NEOSPORIN OINTMENT 0.9GM UDP 1 EACH TP (12:40)
[2024-03-19 12:55] VITALS: BP 129/66; PULSE 59; RESP 16; TEMP 36.4; O2SAT 97
== END 2024-03-19 12:55 | disposition home or self-care (01) ==
LOC: INF 11:09
PROVIDERS: PCP Internal Medicine; Visit Provider Internal Medicine Infectious Disease
DX: N13.6 Pyonephrosis (principal); N39.0 Urinary tract infection, site not specified; B96.4 Proteus (mirabilis) (morganii) as the cause of diseases classified elsewhere; B96.29 Other Escherichia coli [E. coli] as the cause of diseases classified elsewhere
CPT/HCPCS: 96365; G0463; J1335

== ENCOUNTER 2024-04-08 22:47 | Emergency (ER) | payer OTHER, SELFPAY ==
[2024-04-08 22:48] VITALS: BP 116/79; PULSE 69; RESP 17; TEMP 36.9; O2SAT 92; BMI 48.3
[2024-04-08 23:28] LABS: Basophils # 0.1 K/mm3 (0-0.2); Basophils % 0.9 % (0.1-2.0); Eosinophils # 0.3 K/mm3 (0.0-0.4); Eosinophils % 2.7 % (0.1-12.0); Hematocrit 47.7 % (37.0-47.0); Hemoglobin 15.3 g/dL (12.2-16.2); Lymphocytes # 2.6 K/mm3 (0.7-4.5); Lymphocytes % 21.9 % (10-50); Mean Corpuscular HGB Conc 32.1 g/dL (31.8-35.4); Mean Corpuscular Hemoglobin 28.1 pg (27.0-31.2); Mean Corpuscular Volume 87.7 fl (81-99); Monocytes # 0.5 K/mm3 (0.1-1.0); Monocytes % 4.6 % (1.7-9.3); Neutrophils # 8.2 K/mm3 (1.8-7.8); Platelet Count 318 K/mm3 (142-424); Red Blood Count 5.44 M/mm3 (4.20-5.40); Red Cell Distribution Width 14.8 % (11.5-17.5); White Blood Count 11.7 K/mm3 (4.8-10.8)
[2024-04-08 23:30] LABS: Chloride 99 mmol/L (98-107); Potassium 4.5 mmoL/L (3.5-5.1); Sodium 137 mmol/L (136-145)
[2024-04-08 23:32] LABS: Blood Urea Nitrogen 17 mg/dl (7-17); Creatinine Clearance Estimated 62 mL/min (50-200); Estimated Glomerular Filt Rate 66 ml/min (>60); GFR (African American) 80 ML/MIN (>60)
[2024-04-08 23:33] LABS: Alanine Aminotransferase 72 U/L (12-78); Albumin Level 4.3 g/dl (3.5-5.0); Albumin/Globulin Ratio 1.2 (1.1-1.8); Alkaline Phosphatase 72 U/L (38-126); Anion Gap 12.5 mEq/L (5-15); Aspartate Amino Transferase 51 U/L (14-36); Bilirubin,Total 0.4 mg/dl (0.2-1.3); Calcium 10.3 mg/dl (8.4-10.2); Carbon Dioxide 30 mmol/L (22.0-30.0); Globulin 3.5 g/dL (1.3-3.2); Glucose 167 mg/dl (74-100); Lipase 87 U/L (23-300); Total Protein,Serum 7.8 g/dl (6.3-8.2)
--- NOTE | 2024-04-08 23:33 | ED_ITS ---
Discharge Plan Disposition Patient Disposition: Home, Self-Care Condition: Good Prescriptions Prescriptions: New ketorolac 10 mg tablet 10 mg PO Q8H PRN (Reason: pain) 1 Days Qty: 10 0RF No Action tizanidine [Zanaflex] 4 mg capsule 4 mg PO TIDP PRN (Reason: Muscle Spasm) spironolactone [Aldactone] 50 mg tablet 50 mg PO DAILY bumetanide 2 mg tablet 2 mg PO BID Entresto 24-26 mg tablet 1 tab PO BID pravastatin 10 mg tablet 10 mg PO DAILY Patient Comments: TAKE ONE TABLET BY MOUTH EVERY DAY AT BEDTIME albuterol sulfate [ProAir HFA] 90 mcg/actuation HFA aerosol inhaler 2 puff IH Q4HP PRN (Reason: Shortness Of Breath) promethazine 25 mg tablet 12.5 mg PO Q4HP PRN (Reason: Nausea) omeprazole 20 mg capsule,delayed release(DR/EC) 20 mg PO DAILY nebivolol 5 MG tablet 5 mg PO DAILY tramadol 50 MG tablet 100 mg PO Q6HP PRN (Reason: Moderate Pain) fluticasone propion-salmeterol 28 PUFFS/50 MCG inhaler 1 puff IH BID ibuprofen 800 MG tablet 800 mg PO TIDP PRN (Reason: Mild Pain,Fever,Headache) acetaminophen 325 MG tablet 650 mg PO Q4HP PRN (Reason: Mild Pain) 0RF metformin 500 mg tablet 500 mg PO BIDWMEAL Patient Comments: TAKE ONE TABLET BY MOUTH TWICE DAILY phenazopyridine 200 mg tablet 200 mg PO TID methenamine hippurate 1 gram tablet 1 g PO BID ascorbic acid (vitamin C) [Vitamin C] 500 mg tablet 500 mg PO DAILY Patient Comments: TAKE ONE TABLET BY MOUTH EVERY DAY Glyxambi 25-5 mg tablet 1 tab PO AM Patient Comments: TAKE ONE TABLET BY MOUTH ONCE DAILY IN THE MORNING ipratropium-albuterol 0.5 mg-3 mg(2.5 mg base)/3 mL solution for nebulization 3 ml INHALATION QID Patient Comments: INHALE THE CONTENTS OF 1 VIAL VIA NEBULIZER FOUR TIMES DAILY DIRECTED cetirizine [Zyrtec] 10 mg Tablet 10 mg PO DAILY montelukast [Singulair] 10 mg Tablet 10 mg PO HS ertapenem 1 gram Recon Soln 1 g IV Q24H 13 Days Qty: 0 0RF Referrals Follow up/Referrals: Juarez Griffin MD [Primary Care Provider] - See instructions Activity Restrictions/Add. Instructions Additional Instructions/Restrictions: Follow-up closely with your urologist and primary care provider for continued evaluation and management. Take Toradol as needed for pain control and you can also take Tylenol but do not take ibuprofen while taking Toradol. Return for any new or worsening symptoms. Clinical Impressions Clinical Impression: Right nephrolithiasis, UTI (urinary tract infection) Instructions Patient Instructions: Urinary Tract Infection, Kidney Stones -- Adult Discharge ED Provider: Galina Vigil General Adult HPI General Chief complaint: Nausea/Vomiting/Diarrhea Stated complaint: vomiting, abd pain Time Seen by Provider: 04/08/24 23:05 Mode of Arrival: Wheelchair Source of Information: Patient Limitations: Physical Limitations Description of Symptoms (Recalled from ER Triage Doc. by RN): Pt to ED via wheelchair with c/o NV and abd pain starting today. Pt reports she has a right 14mm kidney stone that she is having surgery for in 1 week. Pt also reports she had positive urine cultures 04/01 and has been off abx since saturday. pt reports hx of sepsis and is afraid she is septic now. pt states abd pain is now resolved but she is having right lower back pain. History of Present Illness HPI narrative: Patient is a 48-year-old female with past medical history mitral regurgitation, hypertension, asthma, COPD and recurrent cystitis with recent hospitalization for urosepsis presenting with right-sided flank pain, nausea and vomiting. She states that she has a right-sided 14 mm kidney stone for which she is having surgery in [address] Ames, she was recently admitted with urosepsis and found to have positive urine cultures on 04/01, had been receiving antibiotics through PICC line that was removed approximately 2 to 3 weeks ago but have been on oral antibiotics until 5 days ago. She had worsening pain in the right back with some nausea prompting her presentation as she was concerned that she may be going septic again. She denies any fevers or chills. Related Data Home Medications Medication Instructions Recorded Confirmed tizanidine 4 mg capsule (Zanaflex) 4 mg PO TIDP PRN Muscle Spasm 02/22/20 03/18/24 nebivolol 5 mg tablet 5 mg PO DAILY 12/21/21 03/18/24 tramadol 50 mg tablet 100 mg PO Q6HP PRN Moderate Pain 12/22/21 03/18/24 albuterol sulfate 90 mcg/actuation 2 puff inhalation Q4HP PRN 12/28/21 03/18/24 aerosol inhaler (ProAir HFA) Shortness Of Breath promethazine 25 mg tablet 12.5 mg PO Q4HP PRN Nausea 03/30/22 03/18/24 spironolactone 50 mg tablet 50 mg PO DAILY 03/30/22 03/18/24 (Aldactone) omeprazole 20 mg capsule,delayed 20 mg PO DAILY 04/24/22 03/18/24 release fluticasone 250 mcg-salmeterol 50 1 puff inhalation BID 04/27/22 03/18/24 mcg/dose blistr powdr for inhalation ibuprofen 800 mg tablet 800 mg PO TIDP PRN Mild 05/01/22 03/18/24 Pain,Fever,Headache bumetanide 2 mg tablet 2 mg PO BID 03/04/23 03/18/24 pravastatin 10 mg tablet 10 mg PO DAILY 03/04/23 03/18/24 sacubitril 24 mg-valsartan 26 mg 1 tab PO BID 03/04/23 03/18/24 tablet (Entresto) ascorbic acid (vitamin C) 500 mg 500 mg PO DAILY 02/06/24 03/18/24 tablet (Vitamin C) cetirizine 10 mg tablet (Zyrtec) 10 mg PO DAILY 02/06/24 03/18/24 empagliflozin 25 mg-linagliptin 5 1 tab PO AM 02/06/24 03/18/24 mg tablet (Glyxambi) ipratropium 0.5 mg-albuterol 3 mg 3 ml inhalation QID 02/06/24 03/18/24 (2.5 mg base)/3 mL nebulization soln metformin 500 mg tablet 500 mg PO BIDWMEAL 02/06/24 03/18/24 methenamine hippurate 1 gram tablet 1 g PO BID 02/06/24 03/18/24 montelukast 10 mg tablet 10 mg PO HS 02/06/24 03/18/24 (Singulair) phenazopyridine 200 mg tablet 200 mg PO TID 02/06/24 03/18/24 Previous Rx's Medication Instructions Recorded acetaminophen 325 mg tablet 650 mg (2 x 325 mg) PO Q4HP PRN 05/04/22 Mild Pain ertapenem 1 gram solution for 1 g IV Q24H 13 days #0 ea 02/06/24 injection ketorolac 10 mg tablet 10 mg PO Q8H PRN pain 1 day #10 04/09/24 tabs Allergies Allergy/AdvReac Type Severity Reaction Status Date / Time aspirin Allergy Severe S-DIFF. Verified 03/18/24 13:04 BREATHING bee venom protein (honey bee) Allergy Severe Anaphylaxis Verified 03/18/24 13:04 Bleach (Sodium Hypochlorite) Allergy Severe diff. Verified 03/18/24 13:04 breathing, dizzy pneumococcal vaccine Allergy Verified 03/18/24 13:04 sulfamethoxazole Allergy Verified 03/18/24 13:04 [From Bactrim] trimethoprim [From Bactrim] Allergy Verified 03/18/24 13:04 sucralose AdvReac Severe breathing Verified 03/18/24 13:04 [From SUCRALOSE (FOOD/DRUG)] problems PFSH FOR[facility], [facility] Disclaimer: The information contained in this section may have been updated after the patient was seen, as this information can be updated by other users. Medical History (Updated 04/09/24 @ 02:20 by Galina Vigil MD) Syncopal episodes Right flank pain Adnexal mass Septic shock Severe sepsis with acute organ dysfunction Cellulitis of right wrist Pneumonia Asthma with exacerbation Syncope Altered mental status Surgical History History of cholecystectomy S/P right oophorectomy S/P hysterectomy History of tubal ligation Family History Other Alzheimer disease Bipolar 1 disorder Dementia Family history of diabetes mellitus type II Family history of myocardial infarction Lung cancer Lupus Social History (Updated 03/19/24 @ 12:23 by Keyanna Ga RN) Smoking Status: Never smoker second hand exposure: No alcohol intake: current alcohol intake frequency: holidays/special occasions only substance use type: denies use current occupational status: unemployed and disabled Travel in the last 8 weeks: None household members: spouse housing: house current occupational exposures/hazards: No caffeine: Yes ROS Obtained: Yes All systems reviewed & no additional complaints except as documented Physical Exam General General appearance: alert and in no apparent distress (Appears uncomfortable) Head Head exam: atraumatic and normocephalic Neck Neck exam: Present normal inspection Chest Chest inspection: Present normal inspection and symmetric chest wall rise Respiratory Respiratory exam: Present normal lung sounds bilaterally; Absent respiratory distress Cardiovascular Cardiovascular exam: Present regular rate and normal rhythm Abdominal Exam Abdominal exam: Present soft and other (Right CVA tenderness); Absent tenderness Extremities Exam Extremities exam: Present normal inspection Neurological Exam Neurological exam: Present alert and oriented X3 Skin Skin exam: Present warm and dry Medical Decision Making Medical Records Medical records reviewed: Yes I reviewed the patient's medical records. Harjinder Inquiry Pt receiving controlled substance: No Vital Signs: 04/08/24 22:48 04/09/24 00:01 04/09/24 00:31 Temperature 98.5 F Temperature Source Oral Pulse Rate 56 L 63 Pulse Rate [Left Radial] 69 Respiratory Rate 17 Blood Pressure 138/90 142/91 H Blood Pressure [Right Arm] 116/79 Blood Pressure Mean 106 107 Blood Pressure Mean [Right Arm] 91 Blood Pressure Source [Right Arm] Automatic Cuff Blood Pressure Position [Right Arm] Sitting 02 Sat by Pulse Oximetry 92 L 96 95 Oxygen Delivery Method Room Air Room Air Room Air 04/09/24 01:00 Temperature Temperature Source Pulse Rate 64 Pulse Rate [Left Radial] Respiratory Rate Blood Pressure 144/82 H Blood Pressure [Right Arm] Blood Pressure Mean 102 Blood Pressure Mean [Right Arm] Blood Pressure Source [Right Arm] Blood Pressure Position [Right Arm] 02 Sat by Pulse Oximetry 96 Oxygen Delivery Method Room Air Lab Data Lab results reviewed: Yes I reviewed the patient's lab results. Lab Results 04/08/24 23:16: WBC 11.7 H, RBC 5.44 H, Hgb 15.3, Hct 47.7 H, MCV 87.7, MCH 28.1, MCHC 32.1, RDW 14.8, Plt Count 318, MPV 8.0, Neut % (Auto) 70.0, Lymph % (Auto) 21.9, [place] % (Auto) 4.6, Eos % (Auto) 2.7, Baso % (Auto) 0.9, Neut # (Auto) 8.2 H, Lymph # (Auto) 2.6, [place] # (Auto) 0.5, Eos # (Auto) 0.3, Baso # (Auto) 0.1, Sodium 137, Potassium 4.5, Chloride 99, Carbon Dioxide 30, Anion Gap 12.5, BUN 17, Creatinine 0.90, Estimated Creat Clear 62, Estimated GFR 66, Est GFR ( Amer) 80, Glucose 167 H, Calcium 10.3 H, Total Bilirubin 0.4, AST 51 H, ALT 72, Alkaline Phosphatase 72, Total Protein 7.8, Albumin 4.3, Globulin 3.5 H, Albumin/Globulin Ratio 1.2, Lipase 87 04/08/24 23:20: Lactate 1.9 04/09/24 01:46: Urine Color [place], Urine Appearance Turbid, Urine pH 5.5, Ur Specific [place] 1.025, Urine Protein 2+, Urine Glucose (UA) 2+, Urine Ketones Trace, Urine Blood 2+, Urine Nitrate Positive, Urine Bilirubin Negative, Urine Urobilinogen 4.0, Ur Leukocyte Esterase 1+ A 04/08/24 23:16 04/08/24 23:16 Orders (Tests/Meds): ED MEDICATIONS Generic Name Dose Route Start Last Admin Trade Name Freq PRN Reason Stop Dose Admin Ketorolac Tromethamine 15 mg 04/09/24 02:07 04/09/24 02:14 Ketorolac 30mg/Ml Vial IV 04/09/24 02:08 15 mg ONCE ONE Administration Promethazine HCl 12.5 mg 04/09/24 02:07 04/09/24 02:14 Promethazine Hcl 25mg/Ml 1ml Vial IV 04/09/24 02:08 12.5 mg ONCE ONE Administration Sodium Chloride 10 ml 04/08/24 23:20 Sodium Chloride 0.9% 10ml Flush Syringe IV 04/09/24 11:21 NEEDED PRN Maintain IV Site Sodium Chloride 25 ml 04/09/24 02:07 04/09/24 02:14 Sodium Chloride 0.9% 25ml Bag IV 04/09/24 02:08 25 ml ONCE ONE Administration Discontinued Medications Generic Name Dose Route Start Last Admin Trade Name Freq PRN Reason Stop Dose Admin Sodium Chloride 1,000 mls @ 999 mls/hr 04/08/24 23:30 04/08/24 23:44 Sod Chlor 0.9% 1000ml Bag IV 04/09/24 00:30 999 mls/hr .Q1H1M ARINA Administration Ertapenem 1 gm/ Sodium 50 mls @ 100 mls/hr 04/08/24 23:22 04/08/24 23:43 Chloride IV 04/08/24 23:23 100 mls/hr ONCE ONE Administration Ketorolac Tromethamine 15 mg 04/08/24 23:20 04/08/24 23:43 Ketorolac 30mg/Ml Vial IV 04/08/24 23:21 15 mg ONCE ONE Administration Morphine Sulfate 2 mg 04/09/24 00:57 04/09/24 01:02 Morphine 2mg/Ml Syringe IV 04/09/24 00:58 2 mg ONCE ONE Administration Ondansetron HCl 4 mg 04/08/24 23:20 04/08/24 23:43 Ondansetron 4mg/2ml Vial IV 04/08/24 23:21 4 mg ONCE ONE Administration ORDERS Category Date Time Status Complete Blood Count Auto Diff Stat Lab 04/08/24 23:16 Completed Comprehensive Metabolic Panel Stat Lab 04/08/24 23:16 Completed Lactic Acid Stat Lab 04/08/24 23:20 Completed Lipase Stat Lab 04/08/24 23:16 Completed Urinalysis and Microscopic Stat Lab 04/09/24 01:46 Results Blood Culture Stat Micro 04/08/24 23:25 Received Urine Culture Stat Micro 04/09/24 01:46 Received Medical Decision Narrative: Patient is a 48-year-old female with past medical history COPD, CHF, hypertension, recurrent cystitis with right nephrolithiasis that has been ongoing over the past several months and for which she was recently admitted with urosepsis and PICC line now presenting with right-sided flank pain and nausea. She was concerned she may be going septic again prompting presentation. She does appear uncomfortable with right-sided CVA tenderness consistent with known right 14 mm stone for which she is scheduled to have procedure in 1 week. She was previously on PICC line antibiotics and is waiting for approval for IM ertapenem until her surgery. Denies any fevers or chills. Will obtain labs and give dose of ertapenem with IV while in the emergency department. Given 1 L normal saline, Toradol, Zofran and morphine for pain control. Given a dose of ertapenem per patient request while in the emergency department as well given pending antibiotic insurance approval. CBC without leukocytosis with white blood cell count 11.7, CBC otherwise unremarkable, CMP nonactionable with creatinine normal to 0.9, lipase negative, lactate negative, blood cultures were obtained. UA does appear infectious with positive nitrates and leukocyte esterase. Patient already has a procedure with urology scheduled in 1 week for stone removal, has a known kidney stone but has reassuring blood work today including no leukocytosis, no creatinine dysfunction, she is hemodynamically stable, afebrile and not tachycardic, not septic and with a negative lactate. Discussed all this with patient and while symptoms could be from the known stone or a smaller 1 the procedure she will have likely rectify both the large and any small stones and shared decision making with patient to defer further radiation exposure at this time. Will send patient with prescription for Toradol and she already has a prescription for promethazine and Zofran at home. To follow-up closely with with her outpatient providers including PCP and urologist and discharged in stable condition with strict return precautions given. Critical Care Critical Care Time Critical Care Time: No
[2024-04-08] MEDS: ERTAPENEM SODIUM 1 GM in 0.9 % SODIUM CHLORIDE 50 ML IV (23:43)
[2024-04-08] MEDS: KETOROLAC 30MG/ML VIAL 15 MG IV (23:43)
[2024-04-08] MEDS: ONDANSETRON 4MG/2ML VIAL 4 MG IV (23:43)
[2024-04-08] MEDS: 0.9 % SODIUM CHLORIDE 1000ML 1,000 ML 999 ML IV (23:44)
[2024-04-08 23:50] LABS: Lactic Acid 1.9 mmol/L (0.7-2.1)
[2024-04-09 00:01] VITALS: BP 138/90; PULSE 56; O2SAT 96
[2024-04-09 00:31] VITALS: BP 142/91; PULSE 63; O2SAT 95
--- NOTE | 2024-04-09 00:33 | PC.NURSE ---
rounded on pt at this time. pt reports pain has improved. pt given ice water at this time.
[2024-04-09 01:00] VITALS: BP 144/82; PULSE 64; O2SAT 96
[2024-04-09] MEDS: MORPHINE 2MG/ML SYRINGE 2 MG IV (01:02)
[2024-04-09 01:51] LABS: Microscopic, Urine URINE MICROSCOPIC (MICROSCOPIC)
[2024-04-09 01:52] LABS: Appearance,Urine TURBID (Clear); Bilirubin,Urine Negative (Negative); Blood, Urine 2+ (Negative); Color,Urine ORANGE (Yellow); Glucose,Urine (UA) 2+ (Negative); Ketones,Urine TRACE (Negative); Leukocyte Esterase,Urine 1+ (Negative); Nitrate,Urine POSITIVE (Negative); PH,Urine 5.5 (5.0-8.5); Protein,Urine 2+ (Negative); Specific Gravity, Urine 1.025 (1.005-1.030)
[2024-04-09] MEDS: KETOROLAC 30MG/ML VIAL 15 MG IV (02:14)
[2024-04-09] MEDS: SODIUM CHLORIDE 0.9% 25ML BAG 25 ML IV (02:14)
[2024-04-09] MEDS: PROMETHAZINE HCL 25MG/ML 1ML VIAL 12.5 MG IV (02:14)
[2024-04-09 02:21] LABS: RBC,Urine 20-50 #/hpf (0-3); WBC,Urine 20-50 #/hpf (0-3)
[2024-04-09 02:22] LABS: Bacteria,Urine 1+ /lpf
[2024-04-09 02:23] VITALS: BP 144/85; PULSE 62; RESP 18; TEMP 36.9; O2SAT 94
--- NOTE | 2024-04-10 05:58 | PC.NURSE ---
no growth on blood cx @ 24 hrs. pending final results.
== END 2024-04-09 02:35 | disposition home or self-care (01) ==
PROVIDERS: Emergency Provider Emergency Medicine; PCP Internal Medicine
DX: N39.0 Urinary tract infection, site not specified (principal); B96.89 Other specified bacterial agents as the cause of diseases classified elsewhere; N20.0 Calculus of kidney; R10.9 Unspecified abdominal pain; R11.2 Nausea with vomiting, unspecified; J44.9 Chronic obstructive pulmonary disease, unspecified; I11.0 Hypertensive heart disease with heart failure; I50.30 Unspecified diastolic (congestive) heart failure
CPT/HCPCS: 80053; 81001; 83605; 83690; 85025; 87040; 87086; 96361; 96374; 96375; 96376; 99285; J1335; J1885; J2270; J2405; J2550

== ENCOUNTER 2024-04-09 13:41 | Outpatient (CLI) | payer OTHER, SELFPAY ==
[2024-04-09] MEDS: ERTAPENEM SODIUM 1 GM VIAL IM (14:12)
[2024-04-09 14:15] VITALS: BP 141/88; PULSE 90; RESP 17; O2SAT 95
== END 2024-04-09 14:30 | disposition home or self-care (01) ==
LOC: INF 13:42
PROVIDERS: PCP Internal Medicine
DX: N39.0 Urinary tract infection, site not specified (principal); Z79.2 Long term (current) use of antibiotics; N20.0 Calculus of kidney
CPT/HCPCS: 96372; J1335

== ENCOUNTER 2024-04-10 13:08 | Outpatient (CLI) | payer OTHER, SELFPAY ==
[2024-04-10 13:44] VITALS: BP 115/64; PULSE 77; RESP 18; TEMP 36.9; O2SAT 92
[2024-04-10] MEDS: ERTAPENEM SODIUM 1 GM VIAL IM (13:44)
== END 2024-04-10 14:00 | disposition home or self-care (01) ==
LOC: INF 13:09
PROVIDERS: PCP Internal Medicine
DX: N20.0 Calculus of kidney (principal); N39.0 Urinary tract infection, site not specified; Z79.2 Long term (current) use of antibiotics
CPT/HCPCS: 96372; J1335

== ENCOUNTER 2024-04-10 13:53 | Emergency (ER) | payer OTHER, SELFPAY ==
[2024-04-10] VITALS (7 sets, daily range): BP systolic 96–123; BP diastolic 40–76; PULSE 63–86; RESP 18–19; TEMP 37.3–37.7; O2SAT 92–98; BMI 47.8
--- NOTE | 2024-04-10 14:01 | HMH.EDGENADL ---
Discharge Plan Disposition Chief Complaint: Weakness Prescriptions Prescriptions: No Action tizanidine [Zanaflex] 4 mg capsule 4 mg PO TIDP PRN (Reason: Muscle Spasm) spironolactone [Aldactone] 50 mg tablet 50 mg PO DAILY bumetanide 2 mg tablet 2 mg PO BID Entresto 24-26 mg tablet 1 tab PO BID pravastatin 10 mg tablet 10 mg PO DAILY Patient Comments: TAKE ONE TABLET BY MOUTH EVERY DAY AT BEDTIME albuterol sulfate [ProAir HFA] 90 mcg/actuation HFA aerosol inhaler 2 puff IH Q4HP PRN (Reason: Shortness Of Breath) promethazine 25 mg tablet 12.5 mg PO Q4HP PRN (Reason: Nausea) omeprazole 20 mg capsule,delayed release(DR/EC) 20 mg PO DAILY ertapenem 1 gram recon soln 1 g IM Q24H hydrocodone-acetaminophen 5-325 mg tablet 1 tab PO Q4-6H PRN (Reason: pain) Qty: 20 0RF ketorolac 10 mg tablet 10 mg PO Q8H PRN (Reason: pain) 1 Days Qty: 10 0RF nebivolol 5 MG tablet 5 mg PO DAILY fluticasone propion-salmeterol 28 PUFFS/50 MCG inhaler 1 puff IH BID ibuprofen 800 MG tablet 800 mg PO TIDP PRN (Reason: Mild Pain,Fever,Headache) metformin 500 mg tablet 500 mg PO BIDWMEAL Patient Comments: TAKE ONE TABLET BY MOUTH TWICE DAILY phenazopyridine 200 mg tablet 200 mg PO TID ascorbic acid (vitamin C) [Vitamin C] 500 mg tablet 500 mg PO DAILY Patient Comments: TAKE ONE TABLET BY MOUTH EVERY DAY Glyxambi 25-5 mg tablet 1 tab PO AM Patient Comments: TAKE ONE TABLET BY MOUTH ONCE DAILY IN THE MORNING ipratropium-albuterol 0.5 mg-3 mg(2.5 mg base)/3 mL solution for nebulization 3 ml INHALATION QID Patient Comments: INHALE THE CONTENTS OF 1 VIAL VIA NEBULIZER FOUR TIMES DAILY DIRECTED cetirizine [Zyrtec] 10 mg Tablet 10 mg PO DAILY montelukast [Singulair] 10 mg Tablet 10 mg PO HS Referrals Follow up/Referrals: Juarez Griffin MD [Primary Care Provider] - See instructions Clinical Impressions Clinical Impression: Hydronephrosis concurrent with and due to calculi of kidney and ureter, Nausea & vomiting, Severe sepsis, HERNAN (acute kidney injury) Discharge ED Provider: Da Draper General Adult HPI <Da Draper MD - Last Filed: 04/10/24 15:45> General Chief complaint: Weakness Stated complaint: weakness, nausea, fatique, fever, sent by infusion Time Seen by Provider: 04/10/24 14:01 History of Present Illness HPI narrative: The patient presents for evaluation of flank pain associated with history of known urolithiasis and reported history of infection in the setting of hydronephrosis. She additionally reports history of urosepsis. The stone is reportedly 14 millimeters in size. The patient was last seen in the emergency department on Saturday night and has not been able to tolerate p.o. intake since then. She has been experiencing increased fatigue, decreased oral intake, and general malaise. Additionally, she reports pain and a low-grade fever, with a current temperature of 99 degrees Fahrenheit, which is elevated from her baseline of 97 degrees Fahrenheit. The patient, with additional history obtained by family member at bedside, reports she has current plan of therapy of intramuscular broad-spectrum antibiotics on ambulatory basis through this hospital. She had reportedly previously received broad-spectrum antibiotics through PICC line however that was discontinued. She reports she has an upcoming surgery on the . Please note that above description of symptoms, in this electronic medical record under categorization of recalled from ER triage doctor by RN are reflective of an initial nursing assessment, however, is not reflective of my full history and physical exam that was personally taken and clarified. Consequentially, this preceding description of symptoms, which may include the patient's categorized chief complaint in the EMR, do not reflect my personal clinical impression, and the ultimate description of history of present illness and patient stated complaints should be deferred to this section of the note. Unless stated otherwise or congruent with this section of the note, additional signs, symptoms, or incongruence should be interpreted as inaccurate with my clinical impression. Related Data Home Medications Medication Instructions Recorded Confirmed tizanidine 4 mg capsule (Zanaflex) 4 mg PO TIDP PRN Muscle Spasm 02/22/20 04/10/24 nebivolol 5 mg tablet 5 mg PO DAILY 12/21/21 04/10/24 albuterol sulfate 90 mcg/actuation 2 puff inhalation Q4HP PRN 12/28/21 04/10/24 aerosol inhaler (ProAir HFA) Shortness Of Breath promethazine 25 mg tablet 12.5 mg PO Q4HP PRN Nausea 03/30/22 04/10/24 spironolactone 50 mg tablet 50 mg PO DAILY 03/30/22 04/10/24 (Aldactone) omeprazole 20 mg capsule,delayed 20 mg PO DAILY 04/24/22 04/10/24 release fluticasone 250 mcg-salmeterol 50 1 puff inhalation BID 04/27/22 04/10/24 mcg/dose blistr powdr for inhalation ibuprofen 800 mg tablet 800 mg PO TIDP PRN Mild 05/01/22 04/10/24 Pain,Fever,Headache bumetanide 2 mg tablet 2 mg PO BID 03/04/23 04/10/24 pravastatin 10 mg tablet 10 mg PO DAILY 03/04/23 04/10/24 sacubitril 24 mg-valsartan 26 mg 1 tab PO BID 03/04/23 04/10/24 tablet (Entresto) ascorbic acid (vitamin C) 500 mg 500 mg PO DAILY 02/06/24 04/10/24 tablet (Vitamin C) cetirizine 10 mg tablet (Zyrtec) 10 mg PO DAILY 02/06/24 04/10/24 empagliflozin 25 mg-linagliptin 5 1 tab PO AM 02/06/24 04/10/24 mg tablet (Glyxambi) ipratropium 0.5 mg-albuterol 3 mg 3 ml inhalation QID 02/06/24 04/10/24 (2.5 mg base)/3 mL nebulization soln metformin 500 mg tablet 500 mg PO BIDWMEAL 02/06/24 04/10/24 montelukast 10 mg tablet 10 mg PO HS 02/06/24 04/10/24 (Singulair) phenazopyridine 200 mg tablet 200 mg PO TID 02/06/24 04/10/24 ertapenem 1 gram solution for 1 g IM Q24H 04/09/24 04/10/24 injection Previous Rx's Medication Instructions Recorded hydrocodone 5 mg-acetaminophen 325 1 tab PO Q4-6H PRN pain #20 tabs 04/09/24 mg tablet ketorolac 10 mg tablet 10 mg PO Q8H PRN pain 1 day #10 04/09/24 tabs Allergies Allergy/AdvReac Type Severity Reaction Status Date / Time aspirin Allergy Severe S-DIFF. Verified 04/10/24 14:00 BREATHING bee venom protein (honey bee) Allergy Severe Anaphylaxis Verified 04/10/24 14:00 Bleach (Sodium Hypochlorite) Allergy Severe diff. Verified 04/10/24 14:00 breathing, dizzy levofloxacin [From Levaquin] Allergy Difficulty Verified 04/10/24 14:00 Breathing pneumococcal vaccine Allergy Verified 04/10/24 14:00 sulfamethoxazole Allergy Verified 04/10/24 14:00 [From Bactrim] trimethoprim [From Bactrim] Allergy Verified 04/10/24 14:00 sucralose AdvReac Severe breathing Verified 04/10/24 14:00 [From SUCRALOSE (FOOD/DRUG)] problems augmentin Allergy Difficulty Uncoded 04/09/24 14:38 Breathing PFSH <Da Draper MD - Last Filed: 04/10/24 15:45> PFS Disclaimer: The information contained in this section may have been updated after the patient was seen, as this information can be updated by other users. Medical History Syncopal episodes POSSIBLY DUE TO POTS Right flank pain Adnexal mass Septic shock Severe sepsis with acute organ dysfunction Cellulitis of right wrist Pneumonia Asthma with exacerbation Syncope Altered mental status Surgical History History of cholecystectomy S/P right oophorectomy S/P hysterectomy History of tubal ligation Family History Other Alzheimer disease Bipolar 1 disorder Dementia Family history of diabetes mellitus type II Family history of myocardial infarction Lung cancer Lupus Social History (Updated 04/10/24 @ 13:58 by Tito Collins RN) Smoking Status: Never smoker second hand exposure: No alcohol intake: current alcohol intake frequency: holidays/special occasions only substance use type: denies use current occupational status: unemployed and disabled Travel in the last 8 weeks: None household members: spouse housing: house current occupational exposures/hazards: No caffeine: Yes <Da Draper MD - Last Filed: 04/10/24 15:45> ROS Obtained: Yes other As per HPI Physical Exam <Da Draper MD - Last Filed: 04/10/24 15:45> General General appearance: alert Comment: Ill-appearing Head Head exam: atraumatic and normocephalic Eye Eye exam: Present normal appearance Neck Neck exam: Present normal inspection Chest Chest inspection: Present normal inspection and symmetric chest wall rise Respiratory Respiratory exam: Present normal lung sounds bilaterally; Absent respiratory distress Cardiovascular Cardiovascular exam: Present regular rate and normal rhythm Abdominal Exam Abdominal exam: Present soft Comment: Right-sided CVA tenderness to percussion as well as right lower quadrant abdominal pain Neurological Exam Neurological exam: Present alert and oriented X3 Psychiatric Psychiatric exam: Present normal affect and normal mood Skin Skin exam: Present warm and dry Medical Decision Making <Da Draper MD - Last Filed: 04/10/24 15:45> Medical Records Medical records reviewed: Yes I reviewed the patient's medical records. Harjinder Inquiry Pt receiving controlled substance: No Vital Signs: 04/10/24 13:54 04/10/24 14:31 04/10/24 15:00 Temperature 99.8 F H Temperature Source Oral Pulse Rate 75 63 Pulse Rate [Left] 84 Respiratory Rate 18 Blood Pressure 108/46 L 106/56 L Blood Pressure [Left Arm] 96/40 L Blood Pressure Mean [Left Arm] 58 02 Sat by Pulse Oximetry 98 93 L 94 L Oxygen Delivery Method Room Air 04/10/24 15:26 04/10/24 15:30 Temperature Temperature Source Pulse Rate 68 63 Pulse Rate [Left] Respiratory Rate Blood Pressure 109/59 L 112/56 L Blood Pressure [Left Arm] Blood Pressure Mean [Left Arm] 02 Sat by Pulse Oximetry 92 L 92 L Oxygen Delivery Method Lab Data Lab Results 04/10/24 14:04: WBC 13.2 H, RBC 5.30, Hgb 14.7, Hct 46.6, MCV 88.0, MCH 27.8, MCHC 31.6 L, RDW 15.0, Plt Count 293, MPV 7.9, Neut % (Auto) 81.4 H, Lymph % (Auto) 13.6, [place] % (Auto) 4.5, Eos % (Auto) 0.5, Baso % (Auto) 0.5, Neut # (Auto) 10.7 H, Lymph # (Auto) 1.8, [place] # (Auto) 0.6, Eos # (Auto) 0.1, Baso # (Auto) 0.1, Sodium 136, Potassium 4.2, Chloride 98, Carbon Dioxide 29, Anion Gap 13.2, BUN 19 H, Creatinine 1.50 H D, Estimated Creat Clear 37, Estimated GFR 37 L, Est GFR ( Amer) 44 L D, Glucose 141 H, Calcium 9.9, Total Bilirubin 0.7, AST 29 D, ALT 46 D, Alkaline Phosphatase 81, Total Protein 7.9, Albumin 4.3, Globulin 3.6 H, Albumin/Globulin Ratio 1.2 04/10/24 14:10: Urine Color Yellow, Urine Appearance Clear, Urine pH 5.5, Ur Specific Brimson 1.010, Urine Protein Negative, Urine Glucose (UA) 2+, Urine Ketones Negative, Urine Blood 1+, Urine Nitrate Negative, Urine Bilirubin Negative, Urine Urobilinogen 0.2, Ur Leukocyte Esterase 2+ A, Urine RBC 3-5, Urine WBC 5-10, Ur Squamous Epith Cells Occasional, Urine Bacteria None 04/10/24 14:04 04/10/24 14:04 Orders (Tests/Meds): ED MEDICATIONS Generic Name Dose Route Start Last Admin Trade Name Freq PRN Reason Stop Dose Admin Sodium Chloride 10 ml 04/10/24 15:14 04/10/24 15:15 Sodium Chloride 0.9% 10ml Syr (Rad Only) IV 05/10/24 15:13 10 ml NEEDED PRN Administration Maintain IV Site Discontinued Medications Generic Name Dose Route Start Last Admin Trade Name Freq PRN Reason Stop Dose Admin Lactated Ringer's 1,000 mls @ 999 mls/hr 04/10/24 14:20 04/10/24 14:44 Lactated Ringer's 1000 Ml Bag IV 04/10/24 15:20 999 mls/hr .Q1H1M ONE Administration Iopamidol 75 ml 04/10/24 15:14 04/10/24 15:15 Iopamidol-370 (76%);100ml Bottle IV 04/10/24 15:15 75 ml ONCE ONE Administration Morphine Sulfate 4 mg 04/10/24 15:38 04/10/24 15:54 Morphine 4mg/Ml Syringe IV 04/10/24 15:39 4 mg ONCE ONE Administration Ondansetron HCl 4 mg 04/10/24 14:20 04/10/24 14:44 Ondansetron 4mg/2ml Vial IV 04/10/24 14:21 4 mg ONCE ONE Administration ORDERS Category Date Time Status CT abdomen pelvis w con Stat Cat Scan 04/10/24 14:20 Completed CBC w/Auto Diff [Complete Blood Count Auto Diff] Stat Lab 04/10/24 14:04 Completed CMP [Comprehensive Metabolic Panel] Stat Lab 04/10/24 14:04 Completed Urinalysis and Microscopic Stat Lab 04/10/24 14:10 Completed Blood Culture Stat Micro 04/10/24 15:37 Ordered Urine Culture Stat Micro 04/10/24 14:10 Received Medical Decision Narrative: Patient with history and exam per above presenting for evaluation of pain, decreased p.o. intake, malaise, associated with reportedly known history of infected urolithiasis. Diagnoses considered include urolithiasis, renal colic, hydronephrosis, perinephric abscess, renal calyceal rupture, bacteremia, acute kidney injury, electrolyte abnormality, among others ED workup and treatment included: CBC, CMP, urinalysis, urine culture, blood culture, CT abdomen pelvis with contrast, patient treated with LR 1 L, Zofran 4 mg IV, morphine 4 mg IV Labs were independently interpreted by me, significant for leukocytosis, acute kidney injury, other labs pending Imaging pending at this time. Care was transferred to incoming physician. <Jean Jacobsen MD - Last Filed: 04/10/24 16:17> Vital Signs: 04/10/24 13:54 04/10/24 14:31 04/10/24 15:00 Temperature 99.8 F H Temperature Source Oral Pulse Rate 75 63 Pulse Rate [Left] 84 Respiratory Rate 18 Blood Pressure 108/46 L 106/56 L Blood Pressure [Left Arm] 96/40 L Blood Pressure Mean [Left Arm] 58 02 Sat by Pulse Oximetry 98 93 L 94 L Oxygen Delivery Method Room Air 04/10/24 15:26 04/10/24 15:30 Temperature Temperature Source Pulse Rate 68 63 Pulse Rate [Left] Respiratory Rate Blood Pressure 109/59 L 112/56 L Blood Pressure [Left Arm] Blood Pressure Mean [Left Arm] 02 Sat by Pulse Oximetry 92 L 92 L Oxygen Delivery Method Lab Data Lab results reviewed: Yes I reviewed the patient's lab results. Lab Results 04/10/24 14:04: WBC 13.2 H, RBC 5.30, Hgb 14.7, Hct 46.6, MCV 88.0, MCH 27.8, MCHC 31.6 L, RDW 15.0, Plt Count 293, MPV 7.9, Neut % (Auto) 81.4 H, Lymph % (Auto) 13.6, [place] % (Auto) 4.5, Eos % (Auto) 0.5, Baso % (Auto) 0.5, Neut # (Auto) 10.7 H, Lymph # (Auto) 1.8, [place] # (Auto) 0.6, Eos # (Auto) 0.1, Baso # (Auto) 0.1, Sodium 136, Potassium 4.2, Chloride 98, Carbon Dioxide 29, Anion Gap 13.2, BUN 19 H, Creatinine 1.50 H D, Estimated Creat Clear 37, Estimated GFR 37 L, Est GFR ( Amer) 44 L D, Glucose 141 H, Calcium 9.9, Total Bilirubin 0.7, AST 29 D, ALT 46 D, Alkaline Phosphatase 81, Total Protein 7.9, Albumin 4.3, Globulin 3.6 H, Albumin/Globulin Ratio 1.2 04/10/24 14:10: Urine Color Yellow, Urine Appearance Clear, Urine pH 5.5, Ur Specific [place] 1.010, Urine Protein Negative, Urine Glucose (UA) 2+, Urine Ketones Negative, Urine Blood 1+, Urine Nitrate Negative, Urine Bilirubin Negative, Urine Urobilinogen 0.2, Ur Leukocyte Esterase 2+ A, Urine RBC 3-5, Urine WBC 5-10, Ur Squamous Epith Cells Occasional, Urine Bacteria None Orders (Tests/Meds): ED MEDICATIONS Generic Name Dose Route Start Last Admin Trade Name Freq PRN Reason Stop Dose Admin Sodium Chloride 10 ml 04/10/24 15:14 04/10/24 15:15 Sodium Chloride 0.9% 10ml Syr (Rad Only) IV 05/10/24 15:13 10 ml NEEDED PRN Administration Maintain IV Site Discontinued Medications Generic Name Dose Route Start Last Admin Trade Name Freq PRN Reason Stop Dose Admin Lactated Ringer's 1,000 mls @ 999 mls/hr 04/10/24 14:20 04/10/24 14:44 Lactated Ringer's 1000 Ml Bag IV 04/10/24 15:20 999 mls/hr .Q1H1M ONE Administration Iopamidol 75 ml 04/10/24 15:14 04/10/24 15:15 Iopamidol-370 (76%);100ml Bottle IV 04/10/24 15:15 75 ml ONCE ONE Administration Morphine Sulfate 4 mg 04/10/24 15:38 04/10/24 15:54 Morphine 4mg/Ml Syringe IV 04/10/24 15:39 4 mg ONCE ONE Administration Ondansetron HCl 4 mg 04/10/24 14:20 04/10/24 14:44 Ondansetron 4mg/2ml Vial IV 04/10/24 14:21 4 mg ONCE ONE Administration ORDERS Category Date Time Status CT abdomen pelvis w con Stat Cat Scan 04/10/24 14:20 Completed CBC w/Auto Diff [Complete Blood Count Auto Diff] Stat Lab 04/10/24 14:04 Completed CMP [Comprehensive Metabolic Panel] Stat Lab 04/10/24 14:04 Completed Urinalysis and Microscopic Stat Lab 04/10/24 14:10 Completed Blood Culture Stat Micro 04/10/24 15:37 Ordered Urine Culture Stat Micro 04/10/24 14:10 Received Medical Decision Narrative: Patient with history and exam per above presenting for evaluation of pain, decreased p.o. intake, malaise, associated with reportedly known history of infected urolithiasis. Diagnoses considered include urolithiasis, renal colic, hydronephrosis, perinephric abscess, renal calyceal rupture, bacteremia, acute kidney injury, electrolyte abnormality, among others ED workup and treatment included: CBC, CMP, urinalysis, urine culture, blood culture, CT abdomen pelvis with contrast, patient treated with LR 1 L, Zofran 4 mg IV, morphine 4 mg IV Labs were independently interpreted by me, significant for leukocytosis, acute kidney injury, other labs pending Imaging pending at this time. Care was transferred to incoming physician. This is Dr. Jacobsen I took over from Dr. Dia at 3 PM. I have reviewed the patient's case and reviewed the patient's labs and imaging. Seems as if she has had this large stone in the right proximal ureter since 2021 on our imaging. In November of this year she was felt to have sepsis from this and was sent to [facility] ultimately they felt as though the stone that was causing her symptoms had passed. Subsequently she had a hospitalization with sepsis a few months later where at that time they felt that it was a large stone causing her symptoms. Ultimately she was discharged and tried to be seen by several urologist outpatient was unable to. She ultimately was connected to Dr. Ames with [facility] and was started on IV Invanz for Proteus which has grown multiple times in her urine. She had a PICC line that was placed and she was doing very well has surgery outpatient scheduled at the end of next week. However she states there were some issues with her insurance and the doctor she was talking to stated that they needed to discontinue her PICC line and transition her to fosfomycin. Unclear as to why exactly this happened. However she got significantly worse ultimately represented to [facility] several times to get outpatient infusions of Invanz. Today she was coming into our hospital to get another infusion of Invanz and the team found out that she has gotten sicker she been running a fever at home has had nausea and vomiting no p.o. intake for the last 3 days and they sent her to the emergency department today. Patient CT scan today demonstrates significant worsening of obstruction with hydronephrosis in the right kidney as well as acute kidney injury. She has labs from her recent urology visit where her creatinine was 0.67. To have risen to 0.9 and today is 1.5. She also has a new leukocytosis borderline febrile all this consistent with worsening of her known disease endorgan damage and severe sepsis. She already received IM Invanz today. So far as of right now she has had 600 cc of IV fluids her maps are above 65 she has a known history of COPD and CHF will be very difficult from an anesthesia standpoint. I discussed with her multiple options of next steps in care including being recent to [facility]. However given the fact that she feels as if she was inappropriately managed in that location that she would like to try new location I will discuss the case with [facility]. But it appears as if she needs urgent urologic intervention, likely infectious disease, and advanced anesthesia given her significant comorbidities. I will reassess after I discussed the case with [facility]. Reassessment 4:16 PM patient remains hemodynamically stable. I spoke with Dr. Silverio Wallace at [facility] who also got Dr. John urology attending on the phone we discussed the case and they agreed to accept the patient to [place] emergency department likely for urgent urologic intervention. Patient and family are aware of this she was stable hemodynamically. Everyone agrees to not give additional antibiotics that she already had Invanz earlier today. Critical Care <Da Draper MD - Last Filed: 04/10/24 15:45> Critical Care Time Critical Care Time: No <Jean Jacobsen MD - Last Filed: 04/10/24 16:17> Critical Care Time Critical Care Time: Yes Attestation: On 04/10/24, the high probability of a clinically significant, sudden or life threatening deterioration of the following system(s) required my full and direct attention, intervention and personal management. The time I documented below is in addition to time spent performing reported procedures but includes the following listed in this critical care notation. Total Time Total Critical Care Time: 65
--- NOTE | 2024-04-10 14:20 | CT_ITS ---
FINAL REPORT TECHNIQUE: Postcontrast axial images through the abdomen and pelvis were performed. This study was performed with techniques to keep radiation doses as low as reasonably achievable, (ALARA). Individualized dose reduction techniques using automated exposure control or adjustment of mA and/or kV according to the patient's size were employed. CLINICAL HISTORY: hx kidney stone, worsening abdominal pain COMPARISON: 02/12/2024 FINDINGS: Abdomen: There is mild atelectasis in the lung bases. There is fatty infiltration of the liver. The patient is status post cholecystectomy. The spleen is unremarkable. The adrenals are normal. The pancreas is unremarkable. Multiple nonobstructing bilateral renal stones are identified. Large stone in the right renal pelvis measures 25 mm. There is right urothelial thickening. Mild right hydronephrosis is worse than previous. The aorta is normal in caliber. No free fluid or adenopathy is identified. No findings for mechanical bowel obstruction are identified. Pelvis: The appendix is not identified. There is a 10 cm cystic mass in the right iliac fossa which is stable of uncertain etiology, could represent a cyst or lymphocele. Left ovarian cyst measures 31 mm, new since previous. Patient is status post hysterectomy. The urinary bladder is unremarkable. No free fluid, free air, abscess or adenopathy is identified. IMPRESSION: Bilateral nephrolithiasis. Large stone in the right renal pelvis. Mild right hydronephrosis. Cystic mass in the right iliac fossa of uncertain etiology, may represent a cyst or lymphocele. Left ovarian cyst is new. Reviewed, Interpreted and Dictated by Clinton Argueta III, MD Transcribed by Terri Davis Authenticated and [facility]
[2024-04-10 14:32] LABS: Basophils # 0.1 K/mm3 (0-0.2); Basophils % 0.5 % (0.1-2.0); Eosinophils # 0.1 K/mm3 (0.0-0.4); Eosinophils % 0.5 % (0.1-12.0); Hematocrit 46.6 % (37.0-47.0); Hemoglobin 14.7 g/dL (12.2-16.2); Lymphocytes # 1.8 K/mm3 (0.7-4.5); Lymphocytes % 13.6 % (10-50); Mean Corpuscular HGB Conc 31.6 g/dL (31.8-35.4); Mean Corpuscular Hemoglobin 27.8 pg (27.0-31.2); Mean Platelet Volume 7.9 fl (7.4-10.4); Monocytes # 0.6 K/mm3 (0.1-1.0); Monocytes % 4.5 % (1.7-9.3); Neutrophils # 10.7 K/mm3 (1.8-7.8); Neutrophils % 81.4 % (37.0-80.0); Platelet Count 293 K/mm3 (142-424); White Blood Count 13.2 K/mm3 (4.8-10.8)
[2024-04-10 14:33] LABS: Microscopic, Urine URINE MICROSCOPIC (MICROSCOPIC)
[2024-04-10 14:35] LABS: Appearance,Urine CLEAR (Clear); Bilirubin,Urine Negative (Negative); Blood, Urine 1+ (Negative); Color,Urine YELLOW (Yellow); Glucose,Urine (UA) 2+ (Negative); Ketones,Urine Negative (Negative); Leukocyte Esterase,Urine 2+ (Negative); Nitrate,Urine Negative (Negative); PH,Urine 5.5 (5.0-8.5); Protein,Urine Negative (Negative); Urobilinogen,Urine 0.2 EU/dl (0.2)
[2024-04-10 14:35] LABS: Chloride 98 mmol/L (98-107); Potassium 4.2 mmoL/L (3.5-5.1); Sodium 136 mmol/L (136-145)
[2024-04-10 14:37] LABS: Alanine Aminotransferase 46 U/L (12-78); Aspartate Amino Transferase 29 U/L (14-36); Blood Urea Nitrogen 19 mg/dl (7-17); Creatinine Clearance Estimated 37 mL/min (50-200); Estimated Glomerular Filt Rate 37 ml/min (>60); GFR (African American) 44 ML/MIN (>60)
[2024-04-10 14:38] LABS: Albumin Level 4.3 g/dl (3.5-5.0); Albumin/Globulin Ratio 1.2 (1.1-1.8); Alkaline Phosphatase 81 U/L (38-126); Anion Gap 13.2 mEq/L (5-15); Bilirubin,Total 0.7 mg/dl (0.2-1.3); Calcium 9.9 mg/dl (8.4-10.2); Carbon Dioxide 29 mmol/L (22.0-30.0); Globulin 3.6 g/dL (1.3-3.2); Glucose 141 mg/dl (74-100); Total Protein,Serum 7.9 g/dl (6.3-8.2)
[2024-04-10] MEDS: ONDANSETRON 4MG/2ML VIAL 4 MG IV ×2 (14:44→17:13)
[2024-04-10] MEDS: LACTATED RINGERS 1000ML 1,000 ML 999 ML IV (14:44)
[2024-04-10 14:56] LABS: Squamous Epithelial Cell,Urine Occasional #/hpf (0-5)
[2024-04-10] MEDS: SODIUM CHLORIDE 0.9% 10ML SYR (RAD ONLY) 10 ML IV (15:15)
[2024-04-10] MEDS: IOPAMIDOL-370 (76%);100ML BOTTLE 75 ML IV (15:15)
--- NOTE | 2024-04-10 15:45 | PC.NURSE ---
Dr. Jacobsen at bedside
--- NOTE | 2024-04-10 15:50 | PC.NURSE ---
Called [facility] for possible transfer
[2024-04-10] MEDS: MORPHINE 4MG/ML SYRINGE 4 MG IV ×2 (15:54→17:13)
--- NOTE | 2024-04-10 16:07 | PC.NURSE ---
Dr. Jacobsen s/w [facility]
--- NOTE | 2024-04-10 16:08 | PC.NURSE ---
Radiology has power-shared pt's CT scan from today's visit.
--- NOTE | 2024-04-10 16:12 | PC.NURSE ---
Lab at bedside to attempt to collect blood cultures. ER staff have attempted to collect multiple times.
--- NOTE | 2024-04-10 16:14 | PC.NURSE ---
Dr. Wallace with [facility] has accepted pt.
--- NOTE | 2024-04-10 16:40 | PC.NURSE ---
[facility] notified of transfer to [facility], they report they will be up as soon as [place]
--- NOTE | 2024-04-10 17:00 | PC.NURSE ---
[facility] at bedside receiving report.
== END 2024-04-10 17:10 | disposition short-term general hospital (02) ==
PROVIDERS: Emergency Provider Emergency Medicine; PCP Internal Medicine
DX: A41.89 Other specified sepsis (principal); R65.20 Severe sepsis without septic shock; N13.2 Hydronephrosis with renal and ureteral calculous obstruction; R11.2 Nausea with vomiting, unspecified; N17.8 Other acute kidney failure; J44.9 Chronic obstructive pulmonary disease, unspecified; I11.0 Hypertensive heart disease with heart failure; I50.30 Unspecified diastolic (congestive) heart failure
CPT/HCPCS: 36415; 74177; 80053; 81001; 85025; 87040; 87086; 96361; 96374; 96375; 96376; 99291; J2270; J2405; J7120; Q9967

== ENCOUNTER 2024-04-13 13:39 | Outpatient (CLI) | payer OTHER, SELFPAY ==
[2024-04-13 13:58] VITALS: BP 106/67; PULSE 55; RESP 16; TEMP 36.6; O2SAT 95
[2024-04-13] MEDS: ERTAPENEM SODIUM 1 GM VIAL IM (13:58)
== END 2024-04-13 14:10 | disposition home or self-care (01) ==
LOC: INF 13:40
PROVIDERS: PCP Internal Medicine
DX: N39.0 Urinary tract infection, site not specified (principal); Z79.2 Long term (current) use of antibiotics; N20.0 Calculus of kidney
CPT/HCPCS: 96372; J1335

== ENCOUNTER 2024-04-14 14:09 | Outpatient (CLI) | payer OTHER, SELFPAY ==
[2024-04-14] MEDS: ERTAPENEM SODIUM 1 GM VIAL IM (14:22)
[2024-04-14 14:38] VITALS: BP 119/70; PULSE 76; RESP 18; O2SAT 97
== END 2024-04-14 14:38 | disposition home or self-care (01) ==
LOC: INF 14:09
PROVIDERS: PCP Internal Medicine
DX: N39.0 Urinary tract infection, site not specified (principal); Z79.2 Long term (current) use of antibiotics; N20.0 Calculus of kidney
CPT/HCPCS: 96372; J1335

== ENCOUNTER 2024-04-17 12:35 | Outpatient (CLI) | payer OTHER, SELFPAY ==
[2024-04-17] MEDS: ERTAPENEM SODIUM 1 GM VIAL IM (13:01)
[2024-04-17 13:03] VITALS: BP 133/76; PULSE 72; RESP 16; O2SAT 94
== END 2024-04-17 13:20 | disposition home or self-care (01) ==
LOC: INF 12:35
PROVIDERS: PCP Internal Medicine
DX: N20.0 Calculus of kidney (principal); N39.0 Urinary tract infection, site not specified; Z79.2 Long term (current) use of antibiotics
CPT/HCPCS: 96372; J1335

== ENCOUNTER 2024-04-18 12:47 | Outpatient (CLI) | payer OTHER, SELFPAY ==
[2024-04-18 12:47] VITALS: BP 118/82; PULSE 61; RESP 16; TEMP 36.8; O2SAT 96
[2024-04-18] MEDS: ERTAPENEM SODIUM 1 GM VIAL IM (13:47)
== END 2024-04-18 13:50 | disposition home or self-care (01) ==
LOC: INF 12:48
PROVIDERS: PCP Internal Medicine
DX: N20.0 Calculus of kidney (principal); N39.0 Urinary tract infection, site not specified; Z79.2 Long term (current) use of antibiotics
CPT/HCPCS: 96372; G0463; J1335

== ENCOUNTER 2024-04-19 12:28 | Outpatient (CLI) | payer OTHER, SELFPAY ==
[2024-04-19 13:12] VITALS: BP 99/76; PULSE 84; RESP 20; TEMP 36.4; O2SAT 95
[2024-04-19] MEDS: ERTAPENEM SODIUM 1 GM VIAL IM (13:12)
== END 2024-04-19 23:59 | disposition home or self-care (01) ==
LOC: INF 12:30
PROVIDERS: PCP Internal Medicine
DX: N20.0 Calculus of kidney (principal); N39.0 Urinary tract infection, site not specified; Z79.2 Long term (current) use of antibiotics
CPT/HCPCS: 96372; J1335

== ENCOUNTER 2024-04-20 12:19 | Outpatient (CLI) | payer OTHER, SELFPAY ==
--- NOTE | 2024-04-20 15:53 | PC.NURSE ---
Patient did not receive Invanz IM today due to no prior authorization and unable to be approved by care management department.
== END 2024-04-20 23:59 | disposition home or self-care (01) ==
LOC: INF 12:21
PROVIDERS: PCP Internal Medicine
DX: R65.20 Severe sepsis without septic shock (principal); A41.9 Sepsis, unspecified organism

== ENCOUNTER 2024-05-11 13:30 | Outpatient (CLI) | payer OTHER, SELFPAY | END 2024-05-11 23:59 | disposition home or self-care (01) | LOC: LAB.DROPOF 05-12 08:28 | PROVIDERS: PCP Internal Medicine; Visit Provider Internal Medicine | DX: N39.0 Urinary tract infection, site not specified (principal); B96.20 Unspecified Escherichia coli [E. coli] as the cause of diseases classified elsewhere | CPT/HCPCS: 87086; 87088; 87186 ==

== ENCOUNTER 2024-07-06 15:26 | Outpatient (CLI) | payer OTHER, SELFPAY ==
[2024-07-06 16:33] LABS: Alanine Aminotransferase 93 U/L (12-78); Albumin/Globulin Ratio 1.2 (1.1-1.8); Alkaline Phosphatase 91 U/L (38-126); Anion Gap 12.3 mEq/L (5-15); Aspartate Amino Transferase 57 U/L (14-36); Bilirubin,Total 0.6 mg/dl (0.2-1.3); Blood Urea Nitrogen 13 mg/dl (7-17); Calcium 9.8 mg/dl (8.4-10.2); Carbon Dioxide 26 mmol/L (22.0-30.0); Chloride 104 mmol/L (98-107); Estimated Glomerular Filt Rate 88 ml/min (>60); GFR (African American) 107 ML/MIN (>60); Globulin 3.4 g/dL (1.3-3.2); Glucose 202 mg/dl (74-100); Potassium 4.3 mmoL/L (3.5-5.1); Sodium 138 mmol/L (136-145); Total Protein,Serum 7.4 g/dl (6.3-8.2); Uric Acid 6.1 mg/dl (2.5-6.2)
[2024-07-06 16:46] LABS: Intact Parathyroid Hormone 199.5 pg/mL (7.5-53.5)
[2024-07-06 16:51] LABS: 25-OH Vitamin D, Total 20.3 ng/mL (30-100)
== END 2024-07-06 23:59 | disposition home or self-care (01) ==
LOC: LAB 15:28
PROVIDERS: Internal Medicine; PCP Internal Medicine; Visit Provider Urology
DX: E21.3 Hyperparathyroidism, unspecified (principal); N20.0 Calculus of kidney; E55.9 Vitamin D deficiency, unspecified
CPT/HCPCS: 36415; 80053; 82306; 83970; 84550

== ENCOUNTER 2024-07-08 16:15 | Outpatient (CLI) | payer OTHER, SELFPAY ==
[2024-07-08 18:34] LABS: Free T4 (Free Thyroxine) 1.08 ng/dl (0.78-2.19)
[2024-07-08 19:37] LABS: Thyroid Stimulating Hormone 0.82 uIU/mL (0.465-4.68)
== END 2024-07-08 23:59 | disposition home or self-care (01) ==
LOC: LAB.DROPOF 07-09 09:46
PROVIDERS: PCP Internal Medicine; Visit Provider Internal Medicine
DX: R00.2 Palpitations (principal); R53.83 Other fatigue
CPT/HCPCS: 84439; 84443

== ENCOUNTER 2024-07-18 20:49 | Emergency (ER) | payer OTHER, SELFPAY ==
[2024-07-18 20:50] VITALS: BP 130/71; PULSE 90; RESP 20; TEMP 36.6; O2SAT 97; BMI 49.6
[2024-07-18 20:59] VITALS: PULSE 90
--- NOTE | 2024-07-18 21:03 | XR_ITS ---
PROCEDURE INFORMATION: Exam: XR Chest Exam date and time: 07/18/2024 9:12 PM Age: 49 years old Clinical indication: Cough; Additional info: Cough/ chest pain TECHNIQUE: Imaging protocol: Radiologic exam of the chest. Views: 2 views. COMPARISON: CR XR CHEST PORTABLE PICC PLAC 02/06/2024 12:50 PM FINDINGS: Lungs: Unremarkable. No consolidation. Pleural spaces: Unremarkable. No pleural effusion. No pneumothorax. Heart/Mediastinum: Unremarkable. No cardiomegaly. Bones/joints: Unremarkable. IMPRESSION: No acute findings.
--- NOTE | 2024-07-18 21:03 | ECG_ITS ---
APPROVED REPORT Exam: Resting ECG HR:81 bpm ECG Measurements Heart Rate 81 AXES ND 158 P 37 QRSd 90 QRS 60 QT 382 T 44 QTc 420 Conclusion SINUS RHYTHM LOW QRS VOLTAGE IN PRECORDIAL LEADS [QRS DEFLECTION < 1.0 mV IN CHEST LEADS] BORDERLINE ECG Electronically signed by : BONNY CADE, 07/18/2024 23:57:01
--- NOTE | 2024-07-18 21:09 | ED_ITS ---
<Statement entered by Moriah Singh DO - 07/18/24 23:48> I was consulted by the MARCUS, and we discussed the complexity of the problems being addressed. I approved the treatment and management plan for this patient's care in the emergency department, thus performing a substantive portion of the medical decision making. Moriah Singh DO Discharge Plan Disposition Patient Disposition: Home, Self-Care Condition: Good Prescriptions Prescriptions: New nitrofurantoin monohyd/m-cryst [Macrobid] 100 mg capsule 100 mg PO BID 7 Days Qty: 14 0RF Rx Instructions: must administer with a meal/food No Action tizanidine [Zanaflex] 4 mg capsule 4 mg PO TIDP PRN (Reason: Muscle Spasm) spironolactone [Aldactone] 50 mg tablet 50 mg PO DAILY bumetanide 2 mg tablet 2 mg PO BID Entresto 24-26 mg tablet 1 tab PO BID pravastatin 10 mg tablet 10 mg PO DAILY Patient Comments: TAKE ONE TABLET BY MOUTH EVERY DAY AT BEDTIME azithromycin 250 mg tablet See Rx Instructions PO .COMPLEX Qty: 6 0RF Rx Instructions: For 250 mg dose pack: take 500 mg today (day 1), then 250 mg for 4 days (days 2-5) PO prednisone 10 mg tablet 10 mg PO DIRECTED Qty: 32 0RF Rx Instructions: see taper instructions: 4 tabs po qam x 5 days; 3 tabs po qam x 2 days; 2 tabs po qam x 2 days; 1 tab po qam x 2 days; then stop albuterol sulfate [ProAir HFA] 90 mcg/actuation HFA aerosol inhaler 2 puff IH Q4HP PRN (Reason: Shortness Of Breath) promethazine 25 mg tablet 12.5 mg PO Q4HP PRN (Reason: Nausea) omeprazole 20 mg capsule,delayed release(DR/EC) 20 mg PO DAILY ertapenem 1 gram recon soln 1 g IM Q24H hydrocodone-acetaminophen 5-325 mg tablet 1 tab PO Q4-6H PRN (Reason: pain) Qty: 20 0RF montelukast 10 mg tablet See Rx Instructions .ROUTE .COMPLEX Qty: 90 1RF Dose Instruction: TAKE ONE TABLET BY MOUTH EVERY DAY AT BEDTIME FOR ASTHMA Rx Instructions: TAKE ONE TABLET BY MOUTH EVERY DAY AT BEDTIME FOR ASTHMA prednisone 10 mg tablet 10 mg PO DIRECTED Qty: 32 0RF Rx Instructions: see taper instructions: 4 tabs po qam x 5 days; 3 tabs po qam x 2 days; 2 tabs po qam x 2 days; 1 tab po qam x 2 days; then stop amoxicillin 500 mg capsule 1,000 mg PO BID Qty: 40 0RF tramadol 50 mg tablet 50 mg PO Q6H PRN (Reason: pain) Qty: 120 2RF ibuprofen 800 mg tablet See Rx Instructions .ROUTE .COMPLEX Qty: 90 1RF Dose Instruction: TAKE ONE TABLET BY MOUTH THREE TIMES DAILY NEEDED WITH FOOD Rx Instructions: TAKE ONE TABLET BY MOUTH THREE TIMES DAILY NEEDED WITH FOOD Glyxambi 25-5 mg tablet See Rx Instructions .ROUTE .COMPLEX Qty: 90 1RF Dose Instruction: TAKE ONE TABLET BY MOUTH ONCE DAILY IN THE MORNING Rx Instructions: TAKE ONE TABLET BY MOUTH ONCE DAILY IN THE MORNING hydrocodone-acetaminophen [Vicodin] 5-300 mg Tablet 1 tab PO Q6H PRN (Reason: Pain) nebivolol 5 MG tablet 5 mg PO DAILY fluticasone propion-salmeterol 28 PUFFS/50 MCG inhaler 1 puff IH BID metformin 500 mg tablet 500 mg PO BIDWMEAL Patient Comments: TAKE ONE TABLET BY MOUTH TWICE DAILY phenazopyridine 200 mg tablet 200 mg PO TID ascorbic acid (vitamin C) [Vitamin C] 500 mg tablet 500 mg PO DAILY Patient Comments: TAKE ONE TABLET BY MOUTH EVERY DAY ipratropium-albuterol 0.5 mg-3 mg(2.5 mg base)/3 mL solution for nebulization 3 ml INHALATION QID Patient Comments: INHALE THE CONTENTS OF 1 VIAL VIA NEBULIZER FOUR TIMES DAILY DIRECTED cetirizine [Zyrtec] 10 mg Tablet 10 mg PO DAILY Referrals Follow up/Referrals: Provider,Referral, MD [Primary Care Provider] - See instructions Activity Restrictions/Add. Instructions Additional Instructions/Restrictions: Increase fluids and rest. Clinical Impressions Clinical Impression: UTI (urinary tract infection), Non-cardiac chest pain Print Language Print Language: Amharic Discharge ED Provider: Moriah Singh HPI <Kallie Lopez (ED), MINILAB OPERATOR - Last Filed: 07/18/24 23:02> General Chief Complaint: Chest Pain Stated Complaint: Palpitations Time Seen by Provider: 07/18/24 20:55 Mode of Arrival: Ambulatory Source of Information: Patient Limitations: No Limitations Description of Symptoms (Recalled from ER Triage Doc. by RN): pt came in with cc of palpitations, chest pressure, nausea. pt states she has a hx of copd and chf History of Present Illness HPI narrative: This is a 49-year-old female who presents to the ED today with complaint of heart palpitations, pain behind her left shoulder blade for the last few hours and chest pressure. Patient states that she has felt unwell for the last 2 days and had a cough with nonproductive sputum. She has had no fevers but tells me that she had sepsis without a fever. She says that 99 is high for her. She has had a history of infected kidney stones, COPD, heart failure, bradycardia, and tachycardia. She says with the heart palpitations and the pain in her left shoulder blade she felt uncomfortable and wanted to be sure that she had an EKG. MD complaint: chest pain Related Data Home Medications ?Medication ?Instructions ?Recorded ?Confirmed tizanidine 4 mg capsule (Zanaflex) 4 mg PO TIDP PRN Muscle Spasm 02/22/20 07/08/24 nebivolol 5 mg tablet 5 mg PO DAILY 12/21/21 07/08/24 albuterol sulfate 90 mcg/actuation 2 puff inhalation Q4HP PRN 12/28/21 07/08/24 aerosol inhaler (ProAir HFA) Shortness Of Breath promethazine 25 mg tablet 12.5 mg PO Q4HP PRN Nausea 03/30/22 07/08/24 spironolactone 50 mg tablet 50 mg PO DAILY 03/30/22 07/08/24 (Aldactone) omeprazole 20 mg capsule,delayed 20 mg PO DAILY 04/24/22 07/08/24 release fluticasone 250 mcg-salmeterol 50 1 puff inhalation BID 04/27/22 07/08/24 mcg/dose blistr powdr for inhalation bumetanide 2 mg tablet 2 mg PO BID 03/04/23 07/08/24 pravastatin 10 mg tablet 10 mg PO DAILY 03/04/23 07/08/24 sacubitril 24 mg-valsartan 26 mg 1 tab PO BID 03/04/23 07/08/24 tablet (Entresto) ascorbic acid (vitamin C) 500 mg 500 mg PO DAILY 02/06/24 07/08/24 tablet (Vitamin C) cetirizine 10 mg tablet (Zyrtec) 10 mg PO DAILY 02/06/24 07/08/24 ipratropium 0.5 mg-albuterol 3 mg 3 ml inhalation QID 02/06/24 07/08/24 (2.5 mg base)/3 mL nebulization soln metformin 500 mg tablet 500 mg PO BIDWMEAL 02/06/24 07/08/24 phenazopyridine 200 mg tablet 200 mg PO TID 02/06/24 07/08/24 ertapenem 1 gram solution for 1 g IM Q24H 04/09/24 07/08/24 injection hydrocodone 5 mg-acetaminophen 300 1 tab PO Q6H PRN Pain 04/17/24 07/08/24 mg tablet Previous Rx's ?Medication ?Instructions ?Recorded hydrocodone 5 mg-acetaminophen 325 1 tab PO Q4-6H PRN pain #20 tabs 04/09/24 mg tablet montelukast 10 mg tablet See Rx Instructions .Route 04/29/24 .COMPLEX #90 tabs prednisone 10 mg tablet 10 mg PO DIRECTED #32 tabs 05/12/24 azithromycin 250 mg tablet See Rx Instructions PO .COMPLEX #6 06/09/24 tabs prednisone 10 mg tablet 10 mg PO DIRECTED #32 tabs 06/09/24 amoxicillin 500 mg capsule 1,000 mg (2 x 500 mg) PO BID #40 06/15/24 caps ibuprofen 800 mg tablet See Rx Instructions .Route 07/03/24 .COMPLEX #90 tabs tramadol 50 mg tablet 50 mg PO Q6H PRN pain #120 tabs 07/03/24 empagliflozin 25 mg-linagliptin 5 See Rx Instructions .Route 07/14/24 mg tablet (Glyxambi) .COMPLEX #90 tabs nitrofurantoin 100 mg PO BID 7 days #14 caps 07/18/24 monohydrate/macrocrystals 100 mg capsule (Macrobid) Allergies Allergy/AdvReac Type Severity Reaction Status Date / Time aspirin Allergy Severe S-DIFF. Verified 07/08/24 15:12 BREATHING bee venom protein (honey bee) Allergy Severe Anaphylaxis Verified 07/08/24 15:12 Bleach (Sodium Hypochlorite) Allergy Severe diff. Verified 07/08/24 15:12 breathing, dizzy levofloxacin [From Levaquin] Allergy Difficulty Verified 07/08/24 15:12 Breathing pneumococcal vaccine Allergy Verified 07/08/24 15:12 sulfamethoxazole Allergy Verified 07/08/24 15:12 [From Bactrim] trimethoprim [From Bactrim] Allergy Verified 07/08/24 15:12 sucralose AdvReac Severe breathing Verified 07/08/24 15:12 [From SUCRALOSE (FOOD/DRUG)] problems PFSH <Kallie Lopez (ED), MINILAB OPERATOR - Last Filed: 07/18/24 23:02> PFSH Disclaimer: The information contained in this section may have been updated after the patient was seen, as this information can be updated by other users. Medical History Asthma with exacerbation Syncopal episodes POSSIBLY DUE TO POTS Right flank pain Adnexal mass Septic shock Severe sepsis with acute organ dysfunction Cellulitis of right wrist Pneumonia Syncope Altered mental status Surgical History History of cholecystectomy S/P right oophorectomy S/P hysterectomy History of tubal ligation Family History Other Alzheimer disease Bipolar 1 disorder Dementia Family history of diabetes mellitus type II Family history of myocardial infarction Lung cancer Lupus Social History Smoking Status: Never smoker second hand exposure: No alcohol intake: never substance use type: denies use current occupational status: unemployed and disabled Travel in the last 8 weeks: None household members: spouse housing: house current occupational exposures/hazards: No caffeine: Yes <Kallie Lopez (ED), MINILAB OPERATOR - Last Filed: 07/18/24 23:02> ROS Obtained: Yes Systems reviewed as appropriate & no additional complaints except as documented Constitutional Constitutional: Reports system reviewed and no additional complaints, except as documented and Reports as per HPI Physical Exam <Kallie Lopez (ED), MINILAB OPERATOR - Last Filed: 07/18/24 23:02> General General appearance: alert and in no apparent distress Head Head exam: normocephalic Eye Eye exam: Present normal appearance and PERRL ENT ENT exam: Present normal exam and mucous membranes moist Neck Neck exam: Present normal inspection and trachea midline Chest Chest inspection: Present normal inspection and symmetric chest wall rise Respiratory Respiratory exam: Present normal lung sounds bilaterally Cardiovascular Cardiovascular exam: Present regular rate, normal rhythm, normal heart sounds, +S1 and +S2 Abdominal Exam Abdominal exam: Present soft and normal bowel sounds Extremities Exam Extremities exam: Present normal inspection, full ROM and normal capillary refill Neurological Exam Neurological exam: Present alert, oriented X3 and normal gait Psychiatric Psychiatric exam: Present normal affect and normal mood Skin Skin exam: Present warm and dry HEART Score <Kalliesaurabh Lopez (ED), MINILAB OPERATOR - Last Filed: 07/18/24 23:02> HEART Score HEART Score assessment performed?: Yes History (anamnesis): Moderately suspicious ECG: Normal Age: 45-65 years Risk factors: 1-2 risk factors Troponin: </= normal limit HEART Score: 3 <Moriah Singh, DO - Last Filed: 07/18/24 21:26> HEART Score HEART Score: 3 [facility] MINILAB OPERATOR - Last Filed: 07/18/24 23:02> Critical Care Time Critical Care Time: No Medical Decision Making <[facility] (ED), MINILAB OPERATOR - Last Filed: 07/18/24 23:02> Harjinder Inquiry Pt receiving controlled substance: No Harjinder was queried for this patient: No Vital Signs Vital Signs: 07/18/24 20:50 07/18/24 20:59 Temperature 97.8 F Temperature Source Oral Pulse Rate 90 Pulse Rate [Right Radial] 90 Respiratory Rate 20 Blood Pressure [Left Arm] 130/71 Blood Pressure Mean [Left Arm] 90 02 Sat by Pulse Oximetry 97 Oxygen Delivery Method Room Air Lab Data Lab results reviewed: Yes I reviewed the patient's lab results. Labs: Lab Results 07/18/24 21:02: WBC 11.2 H, RBC 5.59 H, Hgb 15.7, Hct 49.6 H, MCV 88.8, MCH 28.1, MCHC 31.7 L, RDW 14.8, Plt Count 367, MPV 7.5, Neut % (Auto) 62.3, Lymph % (Auto) 30.5, [place] % (Auto) 5.1, Eos % (Auto) 1.6, Baso % (Auto) 0.5, Neut # (Auto) 7.0, Lymph # (Auto) 3.4, [place] # (Auto) 0.6, Eos # (Auto) 0.2, Baso # (Auto) 0.1, PT 10.3, INR 0.91, APTT 27.1, Sodium 136, Potassium 3.7, Chloride 102, Carbon Dioxide 27, Anion Gap 10.7, BUN 12, Creatinine 0.90, Estimated Creat Clear 61, Estimated GFR 66, Est GFR ( Amer) 80, Glucose 140 H, Calcium 9.7, Total Bilirubin 0.5, AST 51 H, ALT 78, Alkaline Phosphatase 89, Troponin I < 0.01, NT-Pro-B Natriuret Pep 44.4, Total Protein 7.4, Albumin 4.2, Globulin 3.2, Albumin/Globulin Ratio 1.3 07/18/24 21:33: SARS-CoV-2 (PCR) Not detected, Influenza A Untype (PCR) Not detected, Influenza Type B (PCR) Not detected 07/18/24 21:40: Urine Color Yellow, Urine Appearance Clear, Urine pH 6.5, Ur Specific [place] 1.010, Urine Protein Negative, Urine Glucose (UA) 2+, Urine Ketones Negative, Urine Blood 1+ A, Urine Nitrate Negative, Urine Bilirubin Negative, Urine Urobilinogen 0.2, Ur Leukocyte Esterase 1+ A, Urine RBC 20-50, Urine WBC 20-50, Ur Squamous Epith Cells Tntc, Urine Bacteria 3+ 07/18/24 21:02 07/18/24 21:02 Response Orders (Tests/Meds): ED MEDICATIONS Discontinued Medications Generic Name Dose Route Start Last Admin Trade Name Freq PRN Reason Stop Dose Admin Ketorolac Tromethamine 15 mg 07/18/24 22:04 07/18/24 22:11 Ketorolac 30mg/Ml Vial IV 07/18/24 22:05 15 mg ONCE ONE Administration Ondansetron HCl 2 mg 07/18/24 21:03 07/18/24 21:18 Ondansetron 4mg/2ml Vial IV 07/18/24 21:04 2 mg ONCE ONE Administration ORDERS Category Date Time Status XR chest 2V Stat Exams 07/18/24 21:03 Taken Activated Partial Thrombo Time Stat Lab 07/18/24 21:02 Completed Complete Blood Count Auto Diff Stat Lab 07/18/24 21:02 Completed Comprehensive Metabolic Panel Stat Lab 07/18/24 21:02 Completed NT Pro Brain Natriuretic Pep. Stat Lab 07/18/24 21:02 Completed Prothrombin Time INR Stat Lab 07/18/24 21:02 Completed Rapid PCR Covid and Flu A/B Stat Lab 07/18/24 21:33 Completed Troponin I Q3H Lab 07/18/24 21:02 Completed Troponin I Q3H Lab 07/19/24 00:15 Ordered Troponin I Q3H Lab 07/19/24 03:15 Ordered Urinalysis and Microscopic Stat Lab 07/18/24 21:40 Completed Urine Culture Stat Micro 07/18/24 21:40 Received MDM Narrative Medical Decision Narrative: Insert review patient is a 49-year-old female presenting to the emergency department for evaluation of palpitations, cough. Patient is hemodynamically stable and nontoxic-appearing upon arrival, afebrile. Differential diagnosis includes chest pain, palpitations, CAD, CHF, COPD, COVID, flu, other viral illnesses among others. Workup will be conducted with hematologic labs, specific imaging, provocative tests. Initial inventions include crystalloid bolus, analgesics. Initial workup reviewed by me shows 1+ leukocytes and blood in urine. Minimal leukocytosis at 11.2. Patient wants urine sent off for urine culture since she has had so many positive cultures in the past. She wants to take fosfomycin that she already has at home. She says that she will take 1 dose of that instead of taking the Macrobid that I prescribed. First troponin was less than 0.01. Other labs were unremarkable. Patient also does not want to wait on her second troponin to result. She says that if it results and is bad she will come back because she lives only 5 minutes away. <Moriah Singh, DO - Last Filed: 07/18/24 21:26> Vital Signs Vital Signs: 07/18/24 20:50 07/18/24 20:59 Temperature 97.8 F Temperature Source Oral Pulse Rate 90 Pulse Rate [Right Radial] 90 Respiratory Rate 20 Blood Pressure [Left Arm] 130/71 Blood Pressure Mean [Left Arm] 90 02 Sat by Pulse Oximetry 97 Oxygen Delivery Method Room Air Lab Data Labs: Lab Results 07/18/24 21:02: WBC 11.2 H, RBC 5.59 H, Hgb 15.7, Hct 49.6 H, MCV 88.8, MCH 28.1, MCHC 31.7 L, RDW 14.8, Plt Count 367, MPV 7.5, Neut % (Auto) 62.3, Lymph % (Auto) 30.5, [place] % (Auto) 5.1, Eos % (Auto) 1.6, Baso % (Auto) 0.5, Neut # (Auto) 7.0, Lymph # (Auto) 3.4, [place] # (Auto) 0.6, Eos # (Auto) 0.2, Baso # (Auto) 0.1, PT 10.3, INR 0.91, APTT 27.1, Sodium 136, Potassium 3.7, Chloride 102, Carbon Dioxide 27, Anion Gap 10.7, BUN 12, Creatinine 0.90, Estimated Creat Clear 61, Estimated GFR 66, Est GFR ( Amer) 80, Glucose 140 H, Calcium 9.7, Total Bilirubin 0.5, AST 51 H, ALT 78, Alkaline Phosphatase 89, Troponin I < 0.01, NT-Pro-B Natriuret Pep 44.4, Total Protein 7.4, Albumin 4.2, Globulin 3.2, Albumin/Globulin Ratio 1.3 07/18/24 21:33: SARS-CoV-2 (PCR) Not detected, Influenza A Untype (PCR) Not detected, Influenza Type B (PCR) Not detected 07/18/24 21:40: Urine Color Yellow, Urine Appearance Clear, Urine pH 6.5, Ur Specific [place] 1.010, Urine Protein Negative, Urine Glucose (UA) 2+, Urine Ketones Negative, Urine Blood 1+ A, Urine Nitrate Negative, Urine Bilirubin Negative, Urine Urobilinogen 0.2, Ur Leukocyte Esterase 1+ A, Urine RBC 20-50, Urine WBC 20-50, Ur Squamous Epith Cells Tntc, Urine Bacteria 3+ Response Orders (Tests/Meds): ED MEDICATIONS Discontinued Medications Generic Name Dose Route Start Last Admin Trade Name Freq PRN Reason Stop Dose Admin Ketorolac Tromethamine 15 mg 07/18/24 22:04 07/18/24 22:11 Ketorolac 30mg/Ml Vial IV 07/18/24 22:05 15 mg ONCE ONE Administration Ondansetron HCl 2 mg 07/18/24 21:03 07/18/24 21:18 Ondansetron 4mg/2ml Vial IV 07/18/24 21:04 2 mg ONCE ONE Administration ORDERS Category Date Time Status XR chest 2V Stat Exams 07/18/24 21:03 Taken Activated Partial Thrombo Time Stat Lab 07/18/24 21:02 Completed Complete Blood Count Auto Diff Stat Lab 07/18/24 21:02 Completed Comprehensive Metabolic Panel Stat Lab 07/18/24 21:02 Completed NT Pro Brain Natriuretic Pep. Stat Lab 07/18/24 21:02 Completed Prothrombin Time INR Stat Lab 07/18/24 21:02 Completed Rapid PCR Covid and Flu A/B Stat Lab 07/18/24 21:33 Completed Troponin I Q3H Lab 07/18/24 21:02 Completed Troponin I Q3H Lab 07/19/24 00:15 Ordered Troponin I Q3H Lab 07/19/24 03:15 Ordered Urinalysis and Microscopic Stat Lab 07/18/24 21:40 Completed Urine Culture Stat Micro 07/18/24 21:40 Received ECG Data Tracing #1: Attestation: I reviewed this ECG and interpreted as documented below: ECG Narrative: Normal sinus rhythm with a ventricular rate of [address] changes concerning for ischemia. Normal axis and intervals ECG initial impression date: 07/18/24 ECG initial impression time: 20:52
[2024-07-18 21:14] LABS: Basophils # 0.1 K/mm3 (0-0.2); Basophils % 0.5 % (0.1-2.0); Eosinophils # 0.2 K/mm3 (0.0-0.4); Eosinophils % 1.6 % (0.1-12.0); Hematocrit 49.6 % (37.0-47.0); Hemoglobin 15.7 g/dL (12.2-16.2); Lymphocytes # 3.4 K/mm3 (0.7-4.5); Lymphocytes % 30.5 % (10-50); Mean Corpuscular HGB Conc 31.7 g/dL (31.8-35.4); Mean Corpuscular Hemoglobin 28.1 pg (27.0-31.2); Mean Corpuscular Volume 88.8 fl (81-99); Mean Platelet Volume 7.5 fl (7.4-10.4); Monocytes # 0.6 K/mm3 (0.1-1.0); Monocytes % 5.1 % (1.7-9.3); Neutrophils % 62.3 % (37.0-80.0); Platelet Count 367 K/mm3 (142-424); Red Blood Count 5.59 M/mm3 (4.20-5.40); Red Cell Distribution Width 14.8 % (11.5-17.5); White Blood Count 11.2 K/mm3 (4.8-10.8)
[2024-07-18 21:15] LABS: Chloride 102 mmol/L (98-107); Potassium 3.7 mmoL/L (3.5-5.1); Sodium 136 mmol/L (136-145)
[2024-07-18 21:18] LABS: Alanine Aminotransferase 78 U/L (12-78); Alkaline Phosphatase 89 U/L (38-126); Anion Gap 10.7 mEq/L (5-15); Aspartate Amino Transferase 51 U/L (14-36); Bilirubin,Total 0.5 mg/dl (0.2-1.3); Blood Urea Nitrogen 12 mg/dl (7-17); Carbon Dioxide 27 mmol/L (22.0-30.0); Creatinine Clearance Estimated 61 mL/min (50-200); Estimated Glomerular Filt Rate 66 ml/min (>60); GFR (African American) 80 ML/MIN (>60); Total Protein,Serum 7.4 g/dl (6.3-8.2)
[2024-07-18] MEDS: ONDANSETRON 4MG/2ML VIAL 2 MG IV (21:18)
[2024-07-18 21:19] LABS: Calcium 9.7 mg/dl (8.4-10.2); Glucose 140 mg/dl (74-100)
[2024-07-18 21:21] LABS: Activated Partial Thrombo Time 27.1 seconds (22.8-30.6); INR 0.91 (0.9-1.1); Prothrombin Time 10.3 seconds (10.1-12.5)
[2024-07-18 21:29] LABS: NT Pro Brain Natriuretic Pep. 44.4 pg/mL (0-125)
[2024-07-18 21:32] LABS: Albumin Level 4.2 g/dl (3.5-5.0); Albumin/Globulin Ratio 1.3 (1.1-1.8); Globulin 3.2 g/dL (1.3-3.2)
[2024-07-18 21:37] LABS: Troponin I < 0.01 ng/ml (0.00-0.034)
[2024-07-18 21:41] LABS: Coronavirus 19, PCR Not Detected (NotDetected); Influenza A, PCR Not Detected (NotDetected); Influenza B, PCR Not Detected (NotDetected)
[2024-07-18 21:45] LABS: Microscopic, Urine URINE MICROSCOPIC (MICROSCOPIC)
[2024-07-18 21:53] LABS: Appearance,Urine CLEAR (Clear); Bilirubin,Urine Negative (Negative); Blood, Urine 1+ (Negative); Color,Urine YELLOW (Yellow); Glucose,Urine (UA) 2+ (Negative); Ketones,Urine Negative (Negative); Leukocyte Esterase,Urine 1+ (Negative); Nitrate,Urine Negative (Negative); PH,Urine 6.5 (5.0-8.5); Protein,Urine Negative (Negative); Urobilinogen,Urine 0.2 EU/dl (0.2)
[2024-07-18 22:01] LABS: Bacteria,Urine 3+ /lpf; RBC,Urine 20-50 #/hpf (0-3); Squamous Epithelial Cell,Urine TNTC #/hpf (0-5); WBC,Urine 20-50 #/hpf (0-3)
[2024-07-18] MEDS: KETOROLAC 30MG/ML VIAL 15 MG IV (22:11)
[2024-07-18 23:13] VITALS: BP 120/74; PULSE 91; RESP 16; TEMP 36.6; O2SAT 94
--- NOTE | 2024-07-22 10:21 | PC.NURSE ---
final urine culture discussed with dr oviedo, on appropriate abx. no new orders
== END 2024-07-18 23:14 | disposition home or self-care (01) ==
PROVIDERS: Nurse Practitioner; Emergency Provider Emergency Medicine
DX: R07.89 Other chest pain (principal); R00.2 Palpitations; R11.0 Nausea; N39.0 Urinary tract infection, site not specified; R05.9 Cough, unspecified; J44.9 Chronic obstructive pulmonary disease, unspecified; I50.9 Heart failure, unspecified
CPT/HCPCS: 71046; 80053; 81001; 83880; 84484; 85025; 85610; 85730; 87086; 87088; 87186; 87636; 93005; 96374; 96375; 99285; J1885; J2405

== ENCOUNTER 2024-07-24 11:45 | Outpatient (CLI) | payer OTHER, SELFPAY ==
[2024-07-24] MEDS: ERTAPENEM SODIUM 1 GM VIAL IM (12:13)
[2024-07-24 12:15] VITALS: BP 97/51; PULSE 61; RESP 17; TEMP 36.1; O2SAT 97
== END 2024-07-24 12:30 | disposition home or self-care (01) ==
LOC: INF 11:46
PROVIDERS: PCP Internal Medicine; Visit Provider Internal Medicine
DX: N39.0 Urinary tract infection, site not specified (principal); B96.20 Unspecified Escherichia coli [E. coli] as the cause of diseases classified elsewhere; Z16.12 Extended spectrum beta lactamase (ESBL) resistance
CPT/HCPCS: 96372; J1335

== ENCOUNTER 2024-07-25 13:39 | Outpatient (CLI) | payer OTHER, SELFPAY ==
[2024-07-25] MEDS: ERTAPENEM SODIUM 1 GM VIAL IM (15:34)
== END 2024-07-25 14:20 | disposition home or self-care (01) ==
LOC: INF 13:39
PROVIDERS: PCP Internal Medicine; Visit Provider Internal Medicine
DX: N39.0 Urinary tract infection, site not specified (principal); Z16.12 Extended spectrum beta lactamase (ESBL) resistance; B96.20 Unspecified Escherichia coli [E. coli] as the cause of diseases classified elsewhere
CPT/HCPCS: 96372; G0463; J1335

== ENCOUNTER 2024-07-26 13:33 | Outpatient (CLI) | payer OTHER, SELFPAY ==
[2024-07-26] MEDS: ERTAPENEM SODIUM 1 GM VIAL IM (14:07)
== END 2024-07-26 14:08 | disposition home or self-care (01) ==
LOC: INF 13:33
PROVIDERS: PCP Internal Medicine; Visit Provider Internal Medicine
DX: N39.0 Urinary tract infection, site not specified (principal)
CPT/HCPCS: 96372; G0463; J1335

== ENCOUNTER 2024-07-27 13:43 | Outpatient (CLI) | payer OTHER, SELFPAY ==
[2024-07-27 13:56] VITALS: BP 131/81; PULSE 72; RESP 18; TEMP 36.7; O2SAT 96
[2024-07-27] MEDS: ERTAPENEM SODIUM 1 GM VIAL IM (13:56)
== END 2024-07-27 14:05 | disposition home or self-care (01) ==
LOC: INF 13:43
PROVIDERS: PCP Internal Medicine; Visit Provider Internal Medicine
DX: N39.0 Urinary tract infection, site not specified (principal); B96.20 Unspecified Escherichia coli [E. coli] as the cause of diseases classified elsewhere; Z16.12 Extended spectrum beta lactamase (ESBL) resistance
CPT/HCPCS: 96372; J1335

== ENCOUNTER 2024-07-28 12:52 | Outpatient (CLI) | payer OTHER, SELFPAY ==
[2024-07-28 13:03] VITALS: BP 120/76; PULSE 60; RESP 16; TEMP 36.4; O2SAT 97
[2024-07-28] MEDS: ERTAPENEM SODIUM 1 GM VIAL IM (13:03)
--- NOTE | 2024-07-28 14:14 | PC.NURSE ---
1355 H&H collected via venipuncture to L hand with butterfly needle. Patient tolerated well. Patient here for possible therapeutic phlebotomy based on lab results
== END 2024-07-28 13:15 | disposition home or self-care (01) ==
LOC: INF 12:53
PROVIDERS: PCP Internal Medicine; Visit Provider Internal Medicine
DX: N39.0 Urinary tract infection, site not specified (principal); B96.20 Unspecified Escherichia coli [E. coli] as the cause of diseases classified elsewhere; Z16.12 Extended spectrum beta lactamase (ESBL) resistance
CPT/HCPCS: 96372; J1335

== ENCOUNTER 2024-07-29 13:34 | Outpatient (CLI) | payer OTHER, SELFPAY ==
[2024-07-29 13:50] VITALS: BP 129/76; PULSE 73; RESP 18; O2SAT 95
[2024-07-29] MEDS: ERTAPENEM SODIUM 1 GM VIAL IM (14:00)
[2024-07-29 14:17] VITALS: BP 129/76; PULSE 73; RESP 18; O2SAT 100
== END 2024-07-29 14:19 | disposition home or self-care (01) ==
LOC: INF 13:35
PROVIDERS: PCP Internal Medicine; Visit Provider Internal Medicine
DX: N39.0 Urinary tract infection, site not specified (principal); B96.20 Unspecified Escherichia coli [E. coli] as the cause of diseases classified elsewhere; Z16.12 Extended spectrum beta lactamase (ESBL) resistance
CPT/HCPCS: 96372; J1335

== ENCOUNTER 2024-07-30 13:18 | Outpatient (CLI) | payer OTHER, SELFPAY ==
[2024-07-30 13:39] VITALS: BP 114/76; PULSE 60; RESP 16; TEMP 36.5; O2SAT 97
[2024-07-30] MEDS: ERTAPENEM SODIUM 1 GM VIAL IM (13:39)
== END 2024-07-30 13:45 | disposition home or self-care (01) ==
LOC: INF 13:18
PROVIDERS: PCP Internal Medicine; Visit Provider Internal Medicine
DX: N39.0 Urinary tract infection, site not specified (principal); B96.20 Unspecified Escherichia coli [E. coli] as the cause of diseases classified elsewhere; Z16.12 Extended spectrum beta lactamase (ESBL) resistance
CPT/HCPCS: 96372; J1335

== ENCOUNTER 2024-07-31 13:23 | Outpatient (CLI) | payer OTHER, SELFPAY ==
[2024-07-31] MEDS: ERTAPENEM SODIUM 1 GM VIAL IM (13:37)
[2024-07-31 13:39] VITALS: BP 111/77; PULSE 60; RESP 18; TEMP 36.6; O2SAT 97
== END 2024-07-31 13:39 | disposition home or self-care (01) ==
LOC: INF 13:24
PROVIDERS: PCP Internal Medicine; Visit Provider Internal Medicine
DX: N39.0 Urinary tract infection, site not specified (principal); Z16.12 Extended spectrum beta lactamase (ESBL) resistance
CPT/HCPCS: 96372; J1335

== ENCOUNTER 2024-08-01 13:35 | Outpatient (CLI) | payer OTHER, SELFPAY ==
[2024-08-01] MEDS: ERTAPENEM SODIUM 1 GM VIAL IM (13:55)
== END 2024-08-01 23:59 | disposition home or self-care (01) ==
LOC: INF 13:37
PROVIDERS: PCP Internal Medicine; Visit Provider Internal Medicine
DX: N39.0 Urinary tract infection, site not specified (principal); B96.20 Unspecified Escherichia coli [E. coli] as the cause of diseases classified elsewhere; Z16.12 Extended spectrum beta lactamase (ESBL) resistance
CPT/HCPCS: 96372; J1335

== ENCOUNTER 2024-08-02 13:12 | Outpatient (CLI) | payer OTHER, SELFPAY ==
[2024-08-02] MEDS: ERTAPENEM SODIUM 1 GM VIAL IM (13:30)
--- NOTE | 2024-08-02 13:49 | PC.NURSE ---
At discharge patient began to relay to me that she has been having chest pain, pressure, and tightness midsternal that radiates through to her back and down her arm. She reports that she has been having this pain intermittently since last night and states she has been having chills and generally feeling unwell. Patient was transported to ER for evaluation via WC by this RN.
== END 2024-08-02 23:59 | disposition home or self-care (01) ==
PROVIDERS: PCP Internal Medicine; Visit Provider Internal Medicine
DX: N39.0 Urinary tract infection, site not specified (principal); B96.20 Unspecified Escherichia coli [E. coli] as the cause of diseases classified elsewhere; Z16.12 Extended spectrum beta lactamase (ESBL) resistance
CPT/HCPCS: 96372; J1335

== ENCOUNTER 2024-08-02 13:45 | Emergency (ER) | payer OTHER, SELFPAY ==
[2024-08-02] VITALS (8 sets, daily range): BP systolic 98–119; BP diastolic 66–74; PULSE 58–70; RESP 12–19; TEMP 36.7–36.9; O2SAT 93–98; BMI 49.6
--- NOTE | 2024-08-02 13:42 | ECG_ITS ---
APPROVED REPORT Exam: Resting ECG HR:60 bpm ECG Measurements Heart Rate 60 AXES WA 158 P 12 QRSd 86 QRS 2 QT 428 T -3 QTc 429 Conclusion SINUS RHYTHM LOW QRS VOLTAGE IN PRECORDIAL LEADS [QRS DEFLECTION < 1.0 mV IN CHEST LEADS] BORDERLINE ECG Electronically signed by : BONNY CADE, 08/02/2024 16:28:47
--- NOTE | 2024-08-02 13:57 | PC.NURSE ---
DR CADE AT BEDSIDE
--- NOTE | 2024-08-02 13:59 | XR_ITS ---
PROCEDURE INFORMATION: Exam: XR Chest Exam date and time: 08/02/2024 2:33 PM Age: 49 years old Clinical indication: Shortness of breath and other: Cp; Additional info: Chest pain/soa TECHNIQUE: Imaging protocol: Radiologic exam of the chest. Views: 1 view. COMPARISON: CR XR CHEST 2V 07/18/2024 9:12 PM FINDINGS: Lungs: Unremarkable. No consolidation. Pleural spaces: Unremarkable. No pleural effusion. No pneumothorax. Heart/Mediastinum: Cardiomegaly. Bones/joints: Unremarkable. IMPRESSION: Cardiomegaly. No acute process.
--- NOTE | 2024-08-02 14:02 | ED_ITS ---
Discharge Plan Disposition Patient Disposition: Home, Self-Care Condition: Good Prescriptions Prescriptions: No Action tizanidine [Zanaflex] 4 mg capsule 4 mg PO TIDP PRN (Reason: Muscle Spasm) spironolactone [Aldactone] 50 mg tablet 50 mg PO DAILY bumetanide 2 mg tablet 2 mg PO BID Entresto 24-26 mg tablet 1 tab PO BID pravastatin 10 mg tablet 10 mg PO DAILY Patient Comments: TAKE ONE TABLET BY MOUTH EVERY DAY AT BEDTIME albuterol sulfate [ProAir HFA] 90 mcg/actuation HFA aerosol inhaler 2 puff IH Q4HP PRN (Reason: Shortness Of Breath) promethazine 25 mg tablet 12.5 mg PO Q4HP PRN (Reason: Nausea) omeprazole 20 mg capsule,delayed release(DR/EC) 20 mg PO DAILY cholecalciferol (vitamin D3) [Vitamin D3] 125 mcg (5,000 unit) tablet 125 mcg PO DAILY Patient Comments: Para-thyroid empagliflozin 25 mg tablet 25 mg PO DAILY Qty: 90 1RF montelukast 10 mg tablet See Rx Instructions .ROUTE .COMPLEX Qty: 90 1RF Dose Instruction: TAKE ONE TABLET BY MOUTH EVERY DAY AT BEDTIME FOR ASTHMA Rx Instructions: TAKE ONE TABLET BY MOUTH EVERY DAY AT BEDTIME FOR ASTHMA amoxicillin 500 mg capsule 1,000 mg PO BID Qty: 40 0RF tramadol 50 mg tablet 50 mg PO Q6H PRN (Reason: pain) Qty: 120 2RF ibuprofen 800 mg tablet See Rx Instructions .ROUTE .COMPLEX Qty: 90 1RF Dose Instruction: TAKE ONE TABLET BY MOUTH THREE TIMES DAILY NEEDED WITH FOOD Rx Instructions: TAKE ONE TABLET BY MOUTH THREE TIMES DAILY NEEDED WITH FOOD metformin 500 mg tablet See Rx Instructions .ROUTE .COMPLEX Qty: 180 1RF Dose Instruction: TAKE ONE TABLET BY MOUTH TWICE DAILY Rx Instructions: TAKE ONE TABLET BY MOUTH TWICE DAILY nebivolol 5 MG tablet 5 mg PO DAILY fluticasone propion-salmeterol 28 PUFFS/50 MCG inhaler 1 puff IH BID phenazopyridine 200 mg tablet 200 mg PO TID ascorbic acid (vitamin C) [Vitamin C] 500 mg tablet 500 mg PO DAILY Patient Comments: TAKE ONE TABLET BY MOUTH EVERY DAY ipratropium-albuterol 0.5 mg-3 mg(2.5 mg base)/3 mL solution for nebulization 3 ml INHALATION QID Patient Comments: INHALE THE CONTENTS OF 1 VIAL VIA NEBULIZER FOUR TIMES DAILY DIRECTED cetirizine [Zyrtec] 10 mg Tablet 10 mg PO DAILY Referrals Follow up/Referrals: Juarez Griffin MD [Primary Care Provider] - See instructions Lamin Zhao MD [Staff Physician] - See instructions Activity Restrictions/Add. Instructions Additional Instructions/Restrictions: You were evaluated in the emergency department today. Please follow-up closely with cardiology as well as with your primary care provider. Return to the emergency department for new or worsening symptoms Clinical Impressions Clinical Impression: COPD (chronic obstructive pulmonary disease), Chest pain Instructions Patient Instructions: DI for Atypical Chest Pain Print Language Print Language: Dutch Discharge ED Provider: Moriah Singh General Chief Complaint: Chest Pain Stated Complaint: chest pain Time Seen by Provider: 08/02/24 13:46 Mode of Arrival: Wheelchair Source of Information: Patient and Spouse Limitations: No Limitations Description of Symptoms (Recalled from ER Triage Doc. by RN): left sided chest pressure,radiates to her back and shoulder History of Present Illness HPI narrative: This patient is a 49-year-old female with a history of COPD on 2 L nasal cannula at home, hypertension, CHF, and recent drug-resistant urinary tract infection for which she just completed Invanz therapy presenting with concern for chest tightness. Patient reports that she started having chest tightness on the left side that radiates to her back and shoulder last night. She notes that she thinks it is her lungs and feels like COPD. She states that she went for her Invanz infusion today and told him that she was having some chest tightness, so she was sent to the ED for evaluation. She denies any other concerns or complaints. Related Data Home Medications ?Medication ?Instructions ?Recorded ?Confirmed tizanidine 4 mg capsule (Zanaflex) 4 mg PO TIDP PRN Muscle Spasm 02/22/20 07/24/24 nebivolol 5 mg tablet 5 mg PO DAILY 12/21/21 07/24/24 albuterol sulfate 90 mcg/actuation 2 puff inhalation Q4HP PRN 12/28/21 07/24/24 aerosol inhaler (ProAir HFA) Shortness Of Breath promethazine 25 mg tablet 12.5 mg PO Q4HP PRN Nausea 03/30/22 07/24/24 spironolactone 50 mg tablet 50 mg PO DAILY 03/30/22 07/24/24 (Aldactone) omeprazole 20 mg capsule,delayed 20 mg PO DAILY 04/24/22 07/24/24 release fluticasone 250 mcg-salmeterol 50 1 puff inhalation BID 04/27/22 07/24/24 mcg/dose blistr powdr for inhalation bumetanide 2 mg tablet 2 mg PO BID 03/04/23 07/24/24 pravastatin 10 mg tablet 10 mg PO DAILY 03/04/23 07/24/24 sacubitril 24 mg-valsartan 26 mg 1 tab PO BID 03/04/23 07/24/24 tablet (Entresto) ascorbic acid (vitamin C) 500 mg 500 mg PO DAILY 02/06/24 07/24/24 tablet (Vitamin C) cetirizine 10 mg tablet (Zyrtec) 10 mg PO DAILY 02/06/24 07/24/24 ipratropium 0.5 mg-albuterol 3 mg 3 ml inhalation QID 02/06/24 07/24/24 (2.5 mg base)/3 mL nebulization soln phenazopyridine 200 mg tablet 200 mg PO TID 02/06/24 07/24/24 cholecalciferol (vitamin D3) 125 125 mcg PO DAILY D3 deficiency 07/23/24 07/24/24 mcg (5,000 unit) tablet (Vitamin D3) Previous Rx's ?Medication ?Instructions ?Recorded montelukast 10 mg tablet See Rx Instructions .Route 04/29/24 .COMPLEX #90 tabs amoxicillin 500 mg capsule 1,000 mg (2 x 500 mg) PO BID #40 06/15/24 caps ibuprofen 800 mg tablet See Rx Instructions .Route 07/03/24 .COMPLEX #90 tabs tramadol 50 mg tablet 50 mg PO Q6H PRN pain #120 tabs 07/03/24 empagliflozin 25 mg tablet 25 mg PO DAILY #90 tabs 07/23/24 metformin 500 mg tablet See Rx Instructions .Route 07/28/24 .COMPLEX #180 tabs Allergies Allergy/AdvReac Type Severity Reaction Status Date / Time aspirin Allergy Severe S-DIFF. Verified 07/23/24 10:46 BREATHING bee venom protein (honey bee) Allergy Severe Anaphylaxis Verified 07/23/24 10:46 Bleach (Sodium Hypochlorite) Allergy Severe diff. Verified 07/23/24 10:46 breathing, dizzy levofloxacin [From Levaquin] Allergy Difficulty Verified 07/23/24 10:46 Breathing pneumococcal vaccine Allergy Verified 07/23/24 10:46 sulfamethoxazole Allergy Verified 07/23/24 10:46 [From Bactrim] trimethoprim [From Bactrim] Allergy Verified 07/23/24 10:46 sucralose AdvReac Severe breathing Verified 07/23/24 10:46 [From SUCRALOSE (FOOD/DRUG)] problems PFSH [facility] Disclaimer: The information contained in this section may have been updated after the patient was seen, as this information can be updated by other users. Medical History Asthma with exacerbation Syncopal episodes Right flank pain Adnexal mass Septic shock Severe sepsis with acute organ dysfunction Cellulitis of right wrist Pneumonia Syncope Altered mental status Surgical History History of cholecystectomy S/P right oophorectomy S/P hysterectomy History of tubal ligation Family History Other Alzheimer disease Bipolar 1 disorder Dementia Family history of diabetes mellitus type II Family history of myocardial infarction Lung cancer Lupus Social History Smoking Status: Never smoker second hand exposure: No alcohol intake: never substance use type: denies use current occupational status: unemployed and disabled Travel in the last 8 weeks: None household members: spouse housing: house current occupational exposures/hazards: No caffeine: Yes Other Medical History Have you received the Flu Vaccine for this season: No Have you received the Pneumonia Vaccine: Yes ROS Obtained: Yes All systems reviewed & no additional complaints except as documented Physical Exam General General appearance: alert, in no apparent distress and obese Head Head exam: atraumatic and normocephalic Eye Eye exam: Present normal appearance, PERRL and EOMI ENT ENT exam: Present normal exam, normal oropharynx, mucous membranes moist and normal external ear exam Neck Neck exam: Present normal inspection, full ROM and trachea midline; Absent tenderness Chest Chest inspection: Present normal inspection and symmetric chest wall rise; Absent tenderness Respiratory Respiratory exam: Present normal lung sounds bilaterally; Absent respiratory distress, wheezes, stridor or accessory muscle use Cardiovascular Cardiovascular exam: Present regular rate and normal rhythm Abdominal Exam Abdominal exam: Present soft; Absent distention, tenderness or guarding Extremities Exam Extremities exam: Present normal inspection, full ROM and normal capillary refill; Absent tenderness or edema Back Exam Back exam: Present normal inspection and full ROM; Absent tenderness Neurological Exam Neurological exam: Present alert, oriented X3, CN II-XII intact and normal gait; Absent motor sensory deficit Psychiatric Psychiatric exam: Present normal affect and normal mood Skin Skin exam: Present warm and dry HEART Score HEART Score HEART Score assessment performed?: Yes History (anamnesis): Slightly suspicious ECG: Normal Age: 45-65 years Risk factors: 1-2 risk factors Troponin: </= normal limit HEART Score: 2 Critical Care Critical Care Time Critical Care Time: No Medical Decision Making Medical Records Medical records reviewed: Yes I reviewed the patient's medical records. Harjinder Inquiry Pt receiving controlled substance: No Vital Signs Vital Signs: 08/02/24 13:45 08/02/24 13:48 08/02/24 14:00 Temperature 98.4 F Temperature Source Oral Pulse Rate 70 59 L Pulse Rate [Right] 69 Respiratory Rate 18 17 17 Blood Pressure 106/73 L 101/66 L Blood Pressure [Right Arm] 106/73 L Blood Pressure Mean 81 74 Blood Pressure Mean [Right Arm] 84 02 Sat by Pulse Oximetry 95 93 L 97 Oxygen Delivery Method Nasal Cannula Nasal Cannula Oxygen Flow Rate (LPM) 2 2 08/02/24 14:30 08/02/24 14:42 08/02/24 15:00 Temperature Temperature Source Pulse Rate 62 68 70 Pulse Rate [Right] Respiratory Rate 17 17 13 Blood Pressure 107/74 L 119/72 103/72 L Blood Pressure [Right Arm] Blood Pressure Mean 81 85 79 Blood Pressure Mean [Right Arm] 02 Sat by Pulse Oximetry 95 98 97 Oxygen Delivery Method Nasal Cannula Nasal Cannula Nasal Cannula Oxygen Flow Rate (LPM) 2 2 2 08/02/24 15:30 08/02/24 16:04 Temperature 98.0 F Temperature Source Pulse Rate 64 58 L Pulse Rate [Right] Respiratory Rate 12 19 Blood Pressure 110/74 98/70 L Blood Pressure [Right Arm] Blood Pressure Mean 83 Blood Pressure Mean [Right Arm] 02 Sat by Pulse Oximetry 96 Oxygen Delivery Method Nasal Cannula Room Air Oxygen Flow Rate (LPM) 2 Lab Data Labs: Lab Results 08/02/24 13:44: WBC 8.6, RBC 5.50 H, Hgb 15.7, Hct 47.3 H, MCV 86.1, MCH 28.6, MCHC 33.2, RDW 14.6, Plt Count 261, MPV 8.1, Neut % (Auto) 66.5, Lymph % (Auto) 25.4, Greene % (Auto) 4.8, Eos % (Auto) 2.1, Baso % (Auto) 1.1, Neut # (Auto) 5.7, Lymph # (Auto) 2.2, Greene # (Auto) 0.4, Eos # (Auto) 0.2, Baso # (Auto) 0.1, D- Dimer 0.36, Sodium 136, Potassium 4.0, Chloride 101, Carbon Dioxide 28, Anion Gap 11.0, BUN 11, Creatinine 0.70, Estimated Creat Clear 79, Estimated GFR 88, Est GFR ( Amer) 107, Glucose 152 H, Calcium 10.0, Total Bilirubin 0.8, A ST 69 H, ALT 81 H, Alkaline Phosphatase 94, Troponin I < 0.01, Total Protein 7.2, Albumin 4.1, Globulin 3.1, Albumin/Globulin Ratio 1.3, HIV 1&2 Antibody Rapid Nonreactive 08/02/24 13:44 08/02/24 13:44 Response Orders (Tests/Meds): ED MEDICATIONS Discontinued Medications Generic Name Dose Route Start Last Admin Trade Name Freq PRN Reason Stop Dose Admin Ketorolac Tromethamine 15 mg 08/02/24 15:38 08/02/24 16:00 Ketorolac 30mg/Ml Vial IV 08/02/24 15:39 15 mg ONCE ONE Administration ORDERS Category Date Time Status CXR --portable [XR chest portable] Stat Exams 08/02/24 13:59 Taken CBC w/Auto Diff [Complete Blood Count Auto Diff] Stat Lab 08/02/24 13:44 Completed CMP [Comprehensive Metabolic Panel] Stat Lab 08/02/24 13:44 Completed D-Dimer Stat Lab 08/02/24 13:44 Completed HIV (1&2) Antibody Rapid Stat Lab 08/02/24 13:44 Completed Hep C Ab with Reflex to RNA Stat Lab 08/02/24 13:44 Received Trop I [Troponin I] Stat Lab 08/02/24 13:44 Completed ECG Data Tracing #1: Attestation: I reviewed this ECG and interpreted as documented below: ECG Narrative: Normal sinus rhythm with a ventricular rate of [address] changes concerning for ischemia ECG initial impression date: 08/02/24 ECG initial impression time: 13:44 MDM Narrative Medical Decision Narrative: In summary, this patient is a 49-year-old female presenting to the Emergency Department for evaluation of chest tightness. Differential diagnoses considered include but are not limited to ACS, dysrhythmia, pneumonia, COPD exacerbation, PE. Ruling out the most morbid conditions drove assessment. It should be noted patient's history includes COPD, CHF which may or may not be at goal therapy. This complicates all aspects of care by increasing patient's risk for morbidity. On exam, the patient is lying in bed in no acute distress. Vitals are normal on cardiac telemetry. Cannot use PERC criteria to exclude PE given age. Workup included CBC, CMP, troponin, D-dimer, chest x-ray, EKG. EKG obtained is reassuring without significant changes from prior. I independently interpreted x-ray prior to the radiologist read and noted hypoventilation without obvious acute focal consolidation. Please see their read for final interpretation. Labs were obtained that demonstrated no acutely concerning abnormalities with negative D-dimer and negative troponin. On reassessment, patient is requesting some Toradol for treatment of her chest pain, which she states she feels is most likely related to her lung/COPD. I advised her that if she has had increased cough and congestion, we could treat as COPD exacerbation with antibiotics and steroids, but she states she does not want to do this since she just finished antibiotics for UTI and she would rather try to go home to take her medications at home as prescribed to see if gets better. She also notes that she does not want to stay here to obtain second troponin, as since the pain started last night is unlikely to become elevated since it has not already. Given this, we will discharge the patient home with close follow-up with primary care and strict return precautions. She was given Toradol prior to discharge at her request. She was given strict return precautions and was discharged after all questions were answered.
[2024-08-02 14:08] LABS: Basophils # 0.1 K/mm3 (0-0.2); Basophils % 1.1 % (0.1-2.0); Eosinophils # 0.2 K/mm3 (0.0-0.4); Eosinophils % 2.1 % (0.1-12.0); Hematocrit 47.3 % (37.0-47.0); Hemoglobin 15.7 g/dL (12.2-16.2); Lymphocytes # 2.2 K/mm3 (0.7-4.5); Lymphocytes % 25.4 % (10-50); Mean Corpuscular HGB Conc 33.2 g/dL (31.8-35.4); Mean Corpuscular Hemoglobin 28.6 pg (27.0-31.2); Mean Corpuscular Volume 86.1 fl (81-99); Mean Platelet Volume 8.1 fl (7.4-10.4); Monocytes # 0.4 K/mm3 (0.1-1.0); Monocytes % 4.8 % (1.7-9.3); Neutrophils # 5.7 K/mm3 (1.8-7.8); Neutrophils % 66.5 % (37.0-80.0); Platelet Count 261 K/mm3 (142-424); Red Cell Distribution Width 14.6 % (11.5-17.5); White Blood Count 8.6 K/mm3 (4.8-10.8)
[2024-08-02 14:11] LABS: Albumin Level 4.1 g/dl (3.5-5.0); Chloride 101 mmol/L (98-107)
[2024-08-02 14:12] LABS: Sodium 136 mmol/L (136-145)
[2024-08-02 14:14] LABS: Alanine Aminotransferase 81 U/L (12-78); Aspartate Amino Transferase 69 U/L (14-36); Blood Urea Nitrogen 11 mg/dl (7-17); Carbon Dioxide 28 mmol/L (22.0-30.0); Creatinine Clearance Estimated 79 mL/min (50-200); Estimated Glomerular Filt Rate 88 ml/min (>60); GFR (African American) 107 ML/MIN (>60)
[2024-08-02 14:15] LABS: Albumin/Globulin Ratio 1.3 (1.1-1.8); Alkaline Phosphatase 94 U/L (38-126); Bilirubin,Total 0.8 mg/dl (0.2-1.3); Globulin 3.1 g/dL (1.3-3.2); Glucose 152 mg/dl (74-100); Total Protein,Serum 7.2 g/dl (6.3-8.2)
--- NOTE | 2024-08-02 14:35 | PC.NURSE ---
XR AT BEDSIDE
[2024-08-02 14:36] LABS: HIV (1&2) Antibody Rapid NONREACTIVE (NONREACTIVE)
[2024-08-02 14:38] LABS: Troponin I < 0.01 ng/ml (0.00-0.034)
[2024-08-02 15:12] LABS: D-Dimer 0.36 ug/mL (0.0-0.5)
--- NOTE | 2024-08-02 15:36 | PC.NURSE ---
DR CADE AT BEDSIDE
[2024-08-02] MEDS: KETOROLAC 30MG/ML VIAL 15 MG IV (16:00)
[2024-08-04 05:15] LABS: HCV Ab Non Reactive (Non Reactive)
== END 2024-08-02 16:07 | disposition home or self-care (01) ==
PROVIDERS: Emergency Provider Emergency Medicine; PCP Internal Medicine
DX: R07.9 Chest pain, unspecified (principal); J44.9 Chronic obstructive pulmonary disease, unspecified
CPT/HCPCS: 71045; 80053; 84484; 85025; 85378; 86803; 87389; 93005; 96374; 99285; J1885

== ENCOUNTER 2024-08-03 14:12 | Outpatient (CLI) | payer OTHER, SELFPAY ==
[2024-08-03 15:20] LABS: Alanine Aminotransferase 89 U/L (12-78); Albumin/Globulin Ratio 1.4 (1.1-1.8); Alkaline Phosphatase 81 U/L (38-126); Anion Gap 7.4 mEq/L (5-15); Aspartate Amino Transferase 81 U/L (14-36); Bilirubin,Total 0.7 mg/dl (0.2-1.3); Blood Urea Nitrogen 15 mg/dl (7-17); Calcium 10.1 mg/dl (8.4-10.2); Carbon Dioxide 31 mmol/L (22.0-30.0); Chloride 100 mmol/L (98-107); Estimated Glomerular Filt Rate 88 ml/min (>60); GFR (African American) 107 ML/MIN (>60); Globulin 2.8 g/dL (1.3-3.2); Glucose 120 mg/dl (74-100); Potassium 4.4 mmoL/L (3.5-5.1); Sodium 134 mmol/L (136-145); Total Protein,Serum 6.8 g/dl (6.3-8.2)
== END 2024-08-03 23:59 | disposition home or self-care (01) ==
PROVIDERS: PCP Internal Medicine; Visit Provider Urology
DX: N20.0 Calculus of kidney (principal)
CPT/HCPCS: 36415; 80053

== ENCOUNTER 2024-08-10 08:34 | Outpatient (CLI) | payer OTHER, SELFPAY ==
--- NOTE | 2024-08-10 | US_ITS ---
FINAL REPORT CLINICAL HISTORY: nodule FINDINGS: Limited sonographic images of the thyroid were obtained. The right lobe of the thyroid measures 4.9 x 1.3 x 2.1 cm. The left lobe of the thyroid measures 4.6 x 1.4 x 1.8 cm. The isthmus measures 3 mm. There is a solid dominant nodule in the superior pole of the right lobe measuring 9 mm consistent with TR 4. There is a dominant nodule in the lower pole of the left thyroid measuring 10 x 5 mm consistent with TR 4. Other subcentimeter nodules are seen bilaterally. IMPRESSION: TR 4 nodule in the left thyroid lobe. Recommend tissue sampling. Reviewed, Interpreted and Dictated by James Bell MD Transcribed by Terri Davis Authenticated and [facility]
--- NOTE | 2024-08-10 08:35 | US_ITS ---
FINAL REPORT CLINICAL HISTORY: lt thyroid nodule -- lt thyroid fna -- huey yeh FINDINGS: Ultrasound guided thyroid biopsy. HISTORY: Left thyroidmass. Attending radiologist: Dr. Bell Position Photogrammetry Airplane Pilot: Huey Morrison PA-C PROCEDURE: After informed consent was obtained and a time-out was performed, the patient was prepped and draped in usual sterile fashion over the left neck. Utilizing local anesthesia and sterile technique with a 25-gauge needle, access to lesion was obtained. A total of 5 passes were made passes were made under direct ultrasound guidance. The patient received no conscious sedation. The patient tolerated procedure well and left the department in good condition. IMPRESSION: Status post ultrasound guided biopsy of thyroid without immediate complication. Films reviewed, interpreted and dictated by Dr. Bell. Transcribed by Huey Bernardo PA-C. Reviewed, Interpreted and Dictated by James Bell MD Transcribed by DORY Mtz Authenticated and . [facility]
== END 2024-08-10 23:59 | disposition home or self-care (01) ==
LOC: RAD 08:35
PROVIDERS: PCP Internal Medicine; Visit Provider Nurse Practitioner
DX: E04.2 Nontoxic multinodular goiter (principal)
CPT/HCPCS: 10005; 76536

== ENCOUNTER 2024-08-13 09:45 | Outpatient (CLI) | payer OTHER, SELFPAY ==
--- NOTE | 2024-08-13 09:48 | NM_ITS ---
FINAL REPORT CLINICAL HISTORY: HYPERPARATHYROIDISM 10:00 am 21.2 mci sestamibi injected into rt ant COMPARISON: None FINDINGS: 21.2 mCi Technetium 99-M Sestamibi was administered. Planar imaging was performed early and two-hour delayed of the neck and upper thorax. Early imaging shows physiologic uptake within the upper neck involving the salivary glands and lower neck involving the thyroid gland. On delayed imaging there is no abnormal retained activity in the lower neck or mediastinum to localize parathyroid adenoma. IMPRESSION: No scintigraphic evidence of parathyroid adenoma. Reviewed, Interpreted and Dictated by James Bell MD Transcribed by Evon Sandra Authenticated and [facility]
[2024-08-13] MEDS: SODIUM CHLORIDE 0.9% 10ML SYR (RAD ONLY) 10 ML IV (12:17)
[2024-08-13] MEDS: ISO TC99M (SESTAMIBI);1 DOSE VIAL IV (12:17)
== END 2024-08-13 23:59 | disposition home or self-care (01) ==
LOC: RAD 09:45
PROVIDERS: PCP Internal Medicine; Visit Provider Nurse Practitioner Family
DX: E21.3 Hyperparathyroidism, unspecified (principal)
CPT/HCPCS: 78070; A9500

== ENCOUNTER 2024-09-02 16:05 | Outpatient (CLI) | payer OTHER, SELFPAY ==
[2024-09-02 17:04] LABS: Calcium 10.2 mg/dl (8.4-10.2); Phosphorous 2.9 mg/dl (2.5-4.5)
[2024-09-02 17:13] LABS: Intact Parathyroid Hormone 177.8 pg/mL (7.5-53.5)
[2024-09-15 17:21] LABS: 1,25 Dihydroxy Vitamin D 126 pg/mL (.); 1,25-Dihydroxy, Vitamin D-2 <10 pg/mL (.); 1,25-Dihydroxy, Vitamin D-3 126 pg/mL (.)
== END 2024-09-02 23:59 | disposition home or self-care (01) ==
LOC: LAB 16:06
PROVIDERS: PCP Internal Medicine; Visit Provider Internal Medicine
DX: E21.3 Hyperparathyroidism, unspecified (principal); E53.8 Deficiency of other specified B group vitamins; Z98.890 Other specified postprocedural states; Z87.442 Personal history of urinary calculi; E04.2 Nontoxic multinodular goiter; E66.01 Morbid (severe) obesity due to excess calories; E55.9 Vitamin D deficiency, unspecified; R07.89 Other chest pain; I10 Essential (primary) hypertension; Z90.710 Acquired absence of both cervix and uterus; Z90.721 Acquired absence of ovaries, unilateral
CPT/HCPCS: 36415; 82310; 82652; 83970; 84100

== ENCOUNTER 2024-09-15 12:38 | Outpatient (CLI) | payer OTHER, SELFPAY ==
--- NOTE | 2024-09-15 12:39 | US_ITS ---
PROCEDURE: US PELVIC CLINICAL INDICATION: Ovarian Cysts COMPARISON: CT CT ABDOMEN PELVIS WO CON from 03/01/[address] ABDOMEN PELVIS W CON from 04/10/2024 FINDINGS: Transabdominal sonographic images of the pelvis were obtained. Transabdominal ultrasound images were obtained because the patient is wheelchair-bound. UTERUS: The uterus is surgically absent. LEFT OVARY: [id number] with a volume of 74.5ml. Left ovary contains a bilobed cystic area Inferior cyst measures 7.1 cm Superior cyst measures 6.5 cm There has been an increase in the size of the cysts since March, seen in her CT scan. RIGHT adnexa: The right adnexa contains a simple cystic structure measuring 9.1 cm x 9.3 cm x 8.[address] scan in March 2024 suggested that the simple adnexal cyst is located in the right iliac fossa. This is could represent a residual ovarian cyst, or lymphocele. Doppler flow is noted in the left ovary. There is no fluid in the cul-de-sac. IMPRESSION: 1. The uterus is surgically absent. 2. The left ovary is enlarged and contains a bilobed cystic area. The inferior cyst measures 7.1 cm and the superior cyst is 6.5 cm. The left ovarian cyst has increased in size since her CT scan in March 2024. 3. Doppler flow is noted in the ovary. 4. Within the right adnexa there is a 9.3 cm simple cyst that is similar in size when seen in March on CT scan. It was suggested at that time that the cyst could be a lymphocele and is located in the iliac fossa. Could also represent a residual ovary with simple cyst. 5. Given that these left ovarian cysts have increased in size, would consider surgical intervention. Dictated by: Avinash Chapman MD 09/15/2024 15:01 Avinash Chapman MD in [place] 09/15/2024 15:01
--- NOTE | 2024-09-15 12:39 | MM_ITS ---
PROCEDURE INFORMATION: Exam: MG Bilateral Screening 3D Mammography Exam date and time: 09/15/2024 12:54 PM Age: 49 years old Clinical indication: Screening exam TECHNIQUE: Imaging protocol: Bilateral Screening tomosynthesis and 2D mammography including computer-aided detection (CAD) when performed. COMPARISON: No relevant prior studies available. FINDINGS: MAMMOGRAPHY: Breast composition: There are scattered areas of fibroglandular density. Mass: Multiple similar-appearing subcentimeter round and oval circumscribed low-density masses in both breasts, a benign finding. Architectural distortion: None. Calcifications: No suspicious calcifications. Asymmetric density: None. Skin thickening: None. Axillary adenopathy: None. IMPRESSION: No mammographic evidence of malignancy. Annual screening is recommended unless otherwise clinically indicated. ASSESSMENT: BI-RADS Category 2: Benign.
== END 2024-09-15 23:59 | disposition home or self-care (01) ==
LOC: RAD 12:39
PROVIDERS: PCP Internal Medicine; Visit Provider Obstetrics & Gynecology
DX: Z12.31 Encounter for screening mammogram for malignant neoplasm of breast (principal)
CPT/HCPCS: 76856; 77063; 77067

== ENCOUNTER 2024-09-16 15:57 | Outpatient (CLI) | payer OTHER, SELFPAY ==
[2024-09-17 03:52] LABS: CA 19-9 32 U/mL (0-35); CEA 2.4 ng/mL (0.0-4.7); Cancer Antigen (CA) 125 15.5 U/mL (0.0-38.1); Estradiol 84.6 pg/mL (.); FSH 3.4 mIU/mL (.); LH 2.5 mIU/mL (.)
[2024-09-18 12:58] LABS: Human Epididymis Protein 4 56.8 pmol/L (0.0-105.2)
== END 2024-09-16 23:59 | disposition home or self-care (01) ==
LOC: LAB 15:57
PROVIDERS: PCP Internal Medicine; Visit Provider Obstetrics & Gynecology
DX: N83.209 Unspecified ovarian cyst, unspecified side (principal)
CPT/HCPCS: 36415; 82378; 82670; 83001; 83002; 86301; 86305; 86316

== ENCOUNTER 2024-09-25 14:36 | Emergency (ER) | payer OTHER, SELFPAY ==
[2024-09-25 15:09] LABS: Apearance,Urine Clear (Clear); Color,Urine Yellow (Yellow); Glucose,Urine (UA) 1000 (Negative); Protein,Urine Negative (Negative); Specific Gravity, Urine 1.015 (1.005-1.030)
[2024-09-25 15:10] LABS: Bilirubin,Urine Negative (Negative); Blood, Urine Trace (Negative); Ketones,Urine Negative (Negative); UTC Leukocyte Esterase,Urine Negative (Negative); UTC Nitrate,Urine Negative (Negative); Urobilinogen,Urine 0.2 EU/dl (0.2)
--- NOTE | 2024-09-25 15:54 | ED_ITS ---
Discharge Plan Disposition Patient Disposition: Home, Self-Care Condition: Good Prescriptions Prescriptions: No Action tizanidine [Zanaflex] 4 mg capsule 4 mg PO TIDP PRN (Reason: Muscle Spasm) spironolactone [Aldactone] 50 mg tablet 50 mg PO DAILY bumetanide 2 mg tablet 2 mg PO BID Entresto 24-26 mg tablet 1 tab PO BID pravastatin 10 mg tablet 10 mg PO DAILY Patient Comments: TAKE ONE TABLET BY MOUTH EVERY DAY AT BEDTIME tramadol 50 mg tablet 50 mg PO Q6H PRN (Reason: pain) Qty: 120 0RF Trelegy Ellipta 100-62.5-25 mcg blister with device 1 inh inhalation DAILY Qty: 60 2RF (DME) OneTouch Verio test strips Strip See Rx Instructions .Route Qty: 300 1RF Rx Instructions: As directed tirzepatide 2.5 mg/0.5 mL pen injector 2.5 mg SQ WEEKLY Qty: 2.5 0RF Rx Instructions: for 4 weeks azithromycin 250 mg tablet See Rx Instructions PO .COMPLEX Qty: 6 0RF Rx Instructions: For 250 mg dose pack: take 500 mg today (day 1), then 250 mg for 4 days (days 2-5) PO albuterol sulfate [ProAir HFA] 90 mcg/actuation HFA aerosol inhaler 2 puff IH Q4HP PRN (Reason: Shortness Of Breath) promethazine 25 mg tablet 12.5 mg PO Q4HP PRN (Reason: Nausea) omeprazole 20 mg capsule,delayed release(DR/EC) 20 mg PO DAILY empagliflozin 25 mg tablet 25 mg PO DAILY Qty: 90 1RF montelukast 10 mg tablet See Rx Instructions .ROUTE .COMPLEX Qty: 90 1RF Dose Instruction: TAKE ONE TABLET BY MOUTH EVERY DAY AT BEDTIME FOR ASTHMA Rx Instructions: TAKE ONE TABLET BY MOUTH EVERY DAY AT BEDTIME FOR ASTHMA metformin 500 mg tablet See Rx Instructions .ROUTE .COMPLEX Qty: 180 1RF Dose Instruction: TAKE ONE TABLET BY MOUTH TWICE DAILY Rx Instructions: TAKE ONE TABLET BY MOUTH TWICE DAILY ondansetron HCl 4 mg tablet See Rx Instructions .ROUTE .COMPLEX Qty: 30 1RF Dose Instruction: TAKE ONE TABLET BY MOUTH EVERY 8 HOURS NEEDED FOR NAUSEA AND VOMITING Rx Instructions: TAKE ONE TABLET BY MOUTH EVERY 8 HOURS NEEDED FOR NAUSEA AND VOMITING ascorbic acid (vitamin C) [Vitamin C] 500 mg tablet See Rx Instructions .ROUTE .COMPLEX Qty: 60 5RF Dose Instruction: TAKE ONE TABLET BY MOUTH TWICE DAILY Rx Instructions: TAKE ONE TABLET BY MOUTH TWICE DAILY prednisone 10 mg tablet 10 mg PO DIRECTED Qty: 32 0RF Rx Instructions: see taper instructions: 4 tabs po qam x 5 days; 3 tabs po qam x 2 days; 2 tabs po qam x 2 days; 1 tab po qam x 2 days; then stop oxybutynin chloride 5 mg tablet 5 mg PO BID PRN (Reason: bladder spasms) Qty: 60 1RF cholecalciferol (vitamin D3) 125 mcg (5,000 unit) capsule 5,000 unit PO DAILY Qty: 90 1RF ibuprofen 800 mg tablet See Rx Instructions .ROUTE .COMPLEX Qty: 90 1RF Dose Instruction: TAKE ONE TABLET BY MOUTH THREE TIMES DAILY NEEDED WITH FOOD Rx Instructions: TAKE ONE TABLET BY MOUTH THREE TIMES DAILY NEEDED WITH FOOD nebivolol 5 MG tablet 5 mg PO DAILY ipratropium-albuterol 0.5 mg-3 mg(2.5 mg base)/3 mL solution for nebulization 3 ml INHALATION QID Patient Comments: INHALE THE CONTENTS OF 1 VIAL VIA NEBULIZER FOUR TIMES DAILY DIRECTED cetirizine [Zyrtec] 10 mg Tablet 10 mg PO DAILY Referrals Follow up/Referrals: Juarez Griffin MD [Primary Care Provider] - See instructions Activity Restrictions/Add. Instructions Additional Instructions/Restrictions: Drink plenty of fluids. Take tylenol for pain or fever. Take the medications as directed. Follow up with your regular doctor. GO TO THE ER FOR ANY WORSENING SYMPTOMS We will culture the urine. That will tell what bacteria is causing your infection and which antibiotics will treat it best. This test takes 3 days to complete. Clinical Impressions Clinical Impression: Dysuria Instructions Patient Instructions: DI for Dysuria -- Adult Print Language Print Language: Malay Discharge ED Provider: Alexys Ortiz [facility] General Stated complaint: Pain and frequent urination Time Seen by Provider: 09/25/24 15:53 Related Data Home Medications ?Medication ?Instructions ?Recorded ?Confirmed tizanidine 4 mg capsule (Zanaflex) 4 mg PO TIDP PRN Muscle Spasm 02/22/20 10/02/24 nebivolol 5 mg tablet 5 mg PO DAILY 12/21/21 10/02/24 albuterol sulfate 90 mcg/actuation 2 puff inhalation Q4HP PRN 12/28/21 10/02/24 aerosol inhaler (ProAir HFA) Shortness Of Breath promethazine 25 mg tablet 12.5 mg PO Q4HP PRN Nausea 03/30/22 10/02/24 spironolactone 50 mg tablet 50 mg PO DAILY 03/30/22 10/02/24 (Aldactone) omeprazole 20 mg capsule,delayed 20 mg PO DAILY 04/24/22 10/02/24 release bumetanide 2 mg tablet 2 mg PO BID 03/04/23 10/02/24 pravastatin 10 mg tablet 10 mg PO DAILY 03/04/23 10/02/24 sacubitril 24 mg-valsartan 26 mg 1 tab PO BID 03/04/23 10/02/24 tablet (Entresto) cetirizine 10 mg tablet (Zyrtec) 10 mg PO DAILY 02/06/24 10/02/24 ipratropium 0.5 mg-albuterol 3 mg 3 ml inhalation QID 02/06/24 10/02/24 (2.5 mg base)/3 mL nebulization soln Previous Rx's ?Medication ?Instructions ?Recorded montelukast 10 mg tablet See Rx Instructions .Route 04/29/24 .COMPLEX #90 tabs empagliflozin 25 mg tablet 25 mg PO DAILY #90 tabs 07/23/24 metformin 500 mg tablet See Rx Instructions .Route 07/28/24 .COMPLEX #180 tabs ondansetron HCl 4 mg tablet See Rx Instructions .Route 08/05/24 .COMPLEX #30 tabs blood sugar diagnostic (OneTouch #300 ea 09/02/24 Verio test strips) fluticasone fur. 100 mcg-umeclid 1 inh inhalation DAILY #60 ea 09/02/24 62.5 mcg-vilant 25 mcg inhalat.powder (Trelegy Ellipta) tirzepatide 2.5 mg/0.5 mL 2.5 mg (0.5 mL) SQ WEEKLY #2.5 mL 09/02/24 subcutaneous pen injector tramadol 50 mg tablet 50 mg PO Q6H PRN pain #120 tabs 09/02/24 ascorbic acid (vitamin C) 500 mg See Rx Instructions .Route 09/09/24 tablet (Vitamin C) .COMPLEX #60 tabs prednisone 10 mg tablet 10 mg PO DIRECTED #32 tabs 09/11/24 azithromycin 250 mg tablet See Rx Instructions PO .COMPLEX #6 09/15/24 tabs oxybutynin chloride 5 mg tablet 5 mg PO BID PRN bladder spasms #60 09/30/24 tabs cholecalciferol (vitamin D3) 125 5,000 unit PO DAILY #90 caps 10/01/24 mcg (5,000 unit) capsule ibuprofen 800 mg tablet See Rx Instructions .Route 10/02/24 .COMPLEX #90 tabs Allergies Allergy/AdvReac Type Severity Reaction Status Date / Time aspirin Allergy Severe S-DIFF. Verified 10/02/24 15:15 BREATHING bee venom protein (honey bee) Allergy Severe Anaphylaxis Verified 10/02/24 15:15 Bleach (Sodium Hypochlorite) Allergy Severe diff. Verified 10/02/24 15:15 breathing, dizzy amoxicillin (From Augmentin) Allergy Mild Unknown Verified 10/02/24 15:15 allergy reaction clavulanic acid (From Allergy Mild Unknown Verified 10/02/24 15:15 Augmentin) allergy reaction fluconazole (From Diflucan) Allergy Mild Unknown Verified 10/02/24 15:15 allergy reaction levofloxacin (From Levaquin) Allergy Difficulty Verified 10/02/24 15:15 Breathing pneumococcal vaccine Allergy Unknown Verified 10/02/24 15:15 allergy reaction sulfamethoxazole (From Allergy Unknown Verified 10/02/24 15:15 Bactrim) allergy reaction trimethoprim (From Bactrim) Allergy Unknown Verified 10/02/24 15:15 allergy reaction sucralose (From SUCRALOSE AdvReac Severe breathing Verified 10/02/24 15:15 (FOOD/DRUG)) problems PFSH [facility] Disclaimer: The information contained in this section may have been updated after the patient was seen, as this information can be updated by other users. Medical History Ovarian cyst Hematuria Vaginal pruritus History of nephrolithotomy with removal of calculi Hyperparathyroidism Multiple thyroid nodules Asthma with exacerbation Syncopal episodes POSSIBLY DUE TO POTS Right flank pain Adnexal mass Septic shock Severe sepsis with acute organ dysfunction Cellulitis of right wrist Pneumonia Syncope Altered mental status Surgical History History of cardiac catheterization x2 History of loop recorder History of eye surgery History of cholecystectomy S/P right oophorectomy S/P hysterectomy History of tubal ligation Family History Other Alzheimer disease Bipolar 1 disorder Dementia Family history of diabetes mellitus type II Family history of myocardial infarction Lung cancer Lupus Social History (Updated 10/02/24 @ 15:13 by Tito Collins RN) Smoking Status: Never smoker second hand exposure: No alcohol intake: never substance use type: denies use current occupational status: unemployed and disabled Travel in the last 8 weeks: None household members: spouse housing: house current occupational exposures/hazards: No caffeine: Yes ROS Obtained: Yes All systems reviewed & no additional complaints except as documented Constitutional Constitutional: Reports system reviewed and no additional complaints, except as documented, Denies chills and Denies fever(s) Eyes Eyes: Denies eye discharge ENT Ears, Nose, Mouth, and Throat: Denies dysphagia, Denies sore throat and Denies throat swelling Cardiovascular Cardiovascular: Denies chest pain and Denies dyspnea Respiratory Respiratory: Denies chest congestion, Denies cough and Denies dyspnea Gastrointestinal Gastrointestingal: Denies abdominal pain, constipation, diarrhea, dysphagia, nausea or vomiting Genitourinary Female Genitourinary: Reports as per HPI, Reports dysuria, Reports sexual dysfunction, Reports urinary frequency, Denies urinary incontinence and Reports urinary hesitancy Musculoskeletal Musculoskeletal: Denies arthralgias and Reports back pain Integumentary/Breasts Skin/Breast: Denies rash Neurologic Neurologic: Denies paresthesias Allergic/Immunologic Allergic/Immunologic: Denies throat swelling Physical Exam General General appearance: alert and in no apparent distress Head Head exam: atraumatic, normocephalic and normal inspection Eye Eye exam: Present normal appearance, PERRL and EOMI ENT ENT exam: Present normal exam, normal oropharynx, mucous membranes moist, TM's normal bilaterally and normal external ear exam Neck Neck exam: Present normal inspection, full ROM and trachea midline; Absent meningismus or lymphadenopathy Chest Chest inspection: Present normal inspection and symmetric chest wall rise; Absent tenderness Respiratory Respiratory exam: Present normal lung sounds bilaterally; Absent respiratory distress Cardiovascular Cardiovascular exam: Present regular rate and normal rhythm; Absent JVD Abdominal Exam Abdominal exam: Present soft and normal bowel sounds; Absent distention, tenderness or guarding Extremities Exam Extremities exam: Present normal inspection, full ROM and normal capillary refill; Absent calf tenderness Back Exam Back exam: Present normal inspection; Absent tenderness Neurological Exam Neurological exam: Present alert and oriented X3 Psychiatric Psychiatric exam: Present normal affect and normal mood Skin Skin exam: Present warm, dry, intact and normal color Lymphatic Lymphatic Findings: no adenopathy Medical Decision Making Medical Records Medical records reviewed: No I reviewed the patient's medical records. Screening: Per USPSTF and CDC recommendations, given the prevalence of disease in our region, it is our hospital?s policy to screen for HIV and viral Hepatitis for all patients aged 18 and over and those with ongoing risk factors. Harjinder Inquiry Pt receiving controlled substance: No Lab Data Lab Results 09/25/24 15:08: Urine Color Yellow, Urine Appearance Clear, Urine pH 5.0, Ur Specific [place] 1.015, Urine Protein Negative, Urine Glucose (UA) 1000, Urine Ketones Negative, Urine Blood Trace, Urine Nitrate Negative, Urine Bilirubin Negative, Urine Urobilinogen 0.2, Ur Leukocyte Esterase Negative Orders (Tests/Meds): ORDERS Category Date Time Status Urine Culture Stat Micro 09/25/24 15:15 Received Medical Decision Narrative: She refuses treatment for UTI today. She wants to wait for the urine culture results to be available first.
[2024-09-25 15:57] VITALS: BP 119/76; PULSE 83; RESP 20; TEMP 36.9; O2SAT 96; BMI 49.6
[2024-09-25 16:10] VITALS: BP 119/76; PULSE 83; RESP 20; TEMP 36.9
== END 2024-09-25 16:11 | disposition home or self-care (01) ==
PROVIDERS: Emergency Provider Nurse Practitioner Family; PCP Internal Medicine
DX: R30.0 Dysuria (principal); R35.0 Frequency of micturition; R32 Unspecified urinary incontinence; M54.9 Dorsalgia, unspecified
CPT/HCPCS: 81003; 87086; 87088; 87186; 99212; G0381

== ENCOUNTER 2024-09-30 14:53 | Outpatient (CLI) | payer OTHER, SELFPAY ==
[2024-09-30 15:15] VITALS: BP 147/91; PULSE 85; RESP 20; TEMP 36.1; O2SAT 93
[2024-09-30] MEDS: ERTAPENEM SODIUM 1 GM VIAL IM (15:15)
== END 2024-09-30 15:35 | disposition home or self-care (01) ==
LOC: INF 14:54
PROVIDERS: PCP Internal Medicine; Visit Provider Internal Medicine
DX: J20.9 Acute bronchitis, unspecified (principal)
CPT/HCPCS: 96372; J1335

== ENCOUNTER 2024-10-01 15:01 | Outpatient (CLI) | payer OTHER, SELFPAY ==
[2024-10-01 15:20] VITALS: BP 132/73; PULSE 63; RESP 18; TEMP 36.3; O2SAT 96
[2024-10-01] MEDS: ERTAPENEM SODIUM 1 GM VIAL IM (15:20)
== END 2024-10-01 15:35 | disposition home or self-care (01) ==
LOC: INF 15:02
PROVIDERS: PCP Internal Medicine; Visit Provider Internal Medicine
DX: N39.0 Urinary tract infection, site not specified (principal)
CPT/HCPCS: 96372; J1335

== ENCOUNTER 2024-10-02 14:05 | Outpatient (CLI) | payer OTHER, SELFPAY ==
[2024-10-02 14:30] VITALS: BP 100/62; PULSE 69; RESP 18; TEMP 36.6; O2SAT 96
[2024-10-02] MEDS: ERTAPENEM SODIUM 1 GM VIAL IM (14:30)
== END 2024-10-02 14:40 | disposition home or self-care (01) ==
LOC: INF 14:07
PROVIDERS: PCP Family Medicine; Visit Provider Internal Medicine
DX: J18.9 Pneumonia, unspecified organism (principal)
CPT/HCPCS: 96372; J1335

== ENCOUNTER 2024-10-03 13:42 | Outpatient (CLI) | payer OTHER, SELFPAY ==
[2024-10-03] MEDS: ERTAPENEM SODIUM 1 GM VIAL IM (14:10)
== END 2024-10-03 14:15 | disposition home or self-care (01) ==
LOC: INF 13:42
PROVIDERS: PCP Internal Medicine; Visit Provider Internal Medicine
DX: N39.0 Urinary tract infection, site not specified (principal)
CPT/HCPCS: G0463; J1335

== ENCOUNTER 2024-10-04 13:56 | Outpatient (CLI) | payer OTHER, SELFPAY ==
[2024-10-04 14:00] VITALS: BP 139/75; PULSE 72; RESP 18; TEMP 36.6; O2SAT 95
[2024-10-04 14:16] VITALS: BP 132/88; PULSE 72; RESP 18; TEMP 36.6; O2SAT 95
[2024-10-04] MEDS: ERTAPENEM SODIUM 1 GM VIAL IM (14:29)
== END 2024-10-04 14:16 | disposition home or self-care (01) ==
LOC: INF 13:58
PROVIDERS: PCP Internal Medicine; Visit Provider Internal Medicine
DX: A41.9 Sepsis, unspecified organism (principal); R65.21 Severe sepsis with septic shock
CPT/HCPCS: 96372; G0463; J1335

== ENCOUNTER 2024-10-05 10:39 | Outpatient (CLI) | payer OTHER, SELFPAY ==
[2024-10-04 14:07] VITALS: BP 139/75; PULSE 72; RESP 18; TEMP 36.6; O2SAT 95; BMI 49.6
[2024-10-05] MEDS: ERTAPENEM SODIUM 1 GM VIAL IM (10:55)
[2024-10-05 10:57] VITALS: BP 121/82; PULSE 80; RESP 18; TEMP 36.6; O2SAT 93
== END 2024-10-05 10:57 | disposition home or self-care (01) ==
LOC: INF 10:39
PROVIDERS: PCP Internal Medicine; Visit Provider Internal Medicine
DX: J18.9 Pneumonia, unspecified organism (principal)
CPT/HCPCS: 96372; J1335

== ENCOUNTER 2024-10-06 12:56 | Outpatient (CLI) | payer OTHER, SELFPAY ==
[2024-10-06 13:34] VITALS: BP 125/78; PULSE 65; RESP 18; TEMP 36.4; O2SAT 95
[2024-10-06] MEDS: ERTAPENEM SODIUM 1 GM VIAL IM (13:34)
== END 2024-10-06 13:55 | disposition home or self-care (01) ==
LOC: INF 12:57
PROVIDERS: PCP Internal Medicine; Visit Provider Internal Medicine
DX: J18.9 Pneumonia, unspecified organism (principal)
CPT/HCPCS: 96372; J1335

== ENCOUNTER 2024-11-10 16:00 | Outpatient (CLI) | payer OTHER, SELFPAY ==
[2024-11-10 18:08] LABS: Alanine Aminotransferase 80 U/L (12-78); Anion Gap 16.3 mEq/L (5-15); Aspartate Amino Transferase 69 U/L (14-36); Bilirubin,Total 0.5 mg/dl (0.2-1.3); Blood Urea Nitrogen 18 mg/dl (7-17); Calcium 10.2 mg/dl (8.4-10.2); Carbon Dioxide 25 mmol/L (22.0-30.0); Chloride 100 mmol/L (98-107); Estimated Glomerular Filt Rate 88 ml/min (>60); GFR (African American) 107 ML/MIN (>60); Glucose 163 mg/dl (74-100); Potassium 4.3 mmoL/L (3.5-5.1); Sodium 137 mmol/L (136-145); Total Protein,Serum 6.8 g/dl (6.3-8.2)
[2024-11-10 18:09] LABS: Albumin Level 4.3 g/dl (3.5-5.0); Albumin/Globulin Ratio 1.7 (1.1-1.8); Alkaline Phosphatase 110 U/L (38-126); Chol/HDL Ratio 7.7 (1-3.5); Cholesterol 185 mg/dl (140-200); Globulin 2.5 g/dL (1.3-3.2); HDL Cholesterol 24 mg/dl (40-60); Triglycerides 375 mg/dl (30-150); VLDL Cholesterol 75 mg/dL (0-40)
[2024-11-10 18:36] LABS: Hemoglobin A1C 7.1 % (4.0-6.0)
[2024-11-21 03:48] LABS: 1,25 Dihydroxy Vitamin D 69 pg/mL (.); 1,25-Dihydroxy, Vitamin D-2 <10 pg/mL (.); 1,25-Dihydroxy, Vitamin D-3 67 pg/mL (.)
== END 2024-11-10 23:59 | disposition home or self-care (01) ==
LOC: LAB.DROPOF 11-11 08:48
PROVIDERS: PCP Internal Medicine; Visit Provider Internal Medicine
DX: E55.9 Vitamin D deficiency, unspecified (principal); E11.9 Type 2 diabetes mellitus without complications; E78.5 Hyperlipidemia, unspecified; I50.30 Unspecified diastolic (congestive) heart failure; I50.32 Chronic diastolic (congestive) heart failure; Z79.84 Long term (current) use of oral hypoglycemic drugs
CPT/HCPCS: 80053; 80061; 82652; 83036

== ENCOUNTER 2024-12-07 09:44 | Outpatient (CLI) | payer OTHER, SELFPAY ==
--- NOTE | 2024-12-07 09:44 | US_ITS ---
PROCEDURE: US TRANSVAGINAL CLINICAL INDICATION: follow up on cyst COMPARISON: CT CT ABDOMEN PELVIS W CON from 03/09/[address] ABDOMEN PELVIS WO CON from 07/27/[address] ABDOMEN PELVIS W CON from 07/27/[address] ABDOMEN PELVIS WO CON from 08/22/[address] ABDOMEN PELVIS WO CON from 03/01/[address] ABDOMEN PELVIS WO CON from 12/26/[address] ABDOMEN PELVIS W CON from 02/12/[address] ABDOMEN PELVIS W CON from 04/10/2024 US US PELVIC from 09/15/2024 FINDINGS: Transvaginal and transabdominal sonographic images of the pelvis were obtained. UTERUS: Surgically absent The vaginal vault is intact. LEFT OVARY: 3.3cmx2.4cmx2.9cm with a volume of 12ml. The previously described bilobed cysts measuring 7.1 cm and 6.5 cm have now completely resolved and are no longer present. There are a few small peripheral follicles. The largest measures 1.2 cm. RIGHT OVARY: Surgically absent. There is a simple cyst seen transabdominal in the right adnexa that measures 11.5 by 10.5 x 7.9 cm. It is similar in appearance and size to the cyst seen on CT scan in 2021. There has been no change in the size. A lymphocele was suggested in the past. Left ovary is seen and appears normal. Doppler flow to left ovary is seen. There is no fluid in the cul-de-sac. IMPRESSION: 1. The uterus is surgically absent. The vaginal cuff is intact. 2. The left ovary is seen and appears normal. There are several small peripheral follicles. The previously described 7.1 cm and 6.5 cm bilobed cystic structure has now completely resolved. 3. The right ovary is surgically absent. 4. There continues to be a cystic fluid collection on the right side measuring 11.5 cm. This is not changed in size since her CT scan in 2021. Likely a benign process and a lymphocele was considered in the past. A cystic wall is not well visualized. Dictated by: Avinash Chapman MD 12/07/2024 13:56 Avinash Chapman MD in [place] 12/07/2024 13:56
== END 2024-12-07 23:59 | disposition home or self-care (01) ==
LOC: RAD 09:44
PROVIDERS: PCP Internal Medicine; Visit Provider Obstetrics & Gynecology
DX: N83.202 Unspecified ovarian cyst, left side (principal)
CPT/HCPCS: 76830

== ENCOUNTER 2024-12-23 17:10 | Outpatient (CLI) | payer OTHER, SELFPAY | END 2024-12-23 23:59 | disposition home or self-care (01) | LOC: LAB.DROPOF 12-24 15:16 | PROVIDERS: PCP Internal Medicine; Visit Provider Internal Medicine | DX: N39.0 Urinary tract infection, site not specified (principal); R30.0 Dysuria | CPT/HCPCS: 87086; 87088; 87186 ==

== ENCOUNTER 2024-12-29 11:49 | Outpatient (CLI) | payer OTHER, SELFPAY ==
[2024-12-29 12:00] VITALS: BP 134/82; PULSE 65; RESP 18; TEMP 36.8; O2SAT 97
[2024-12-29] MEDS: ERTAPENEM SODIUM 1 GM VIAL IM (12:00)
== END 2024-12-29 12:22 | disposition home or self-care (01) ==
LOC: INF 11:50
PROVIDERS: PCP Internal Medicine; Visit Provider Internal Medicine
DX: N39.0 Urinary tract infection, site not specified (principal); B96.4 Proteus (mirabilis) (morganii) as the cause of diseases classified elsewhere; Z16.12 Extended spectrum beta lactamase (ESBL) resistance
CPT/HCPCS: 96372; J1335

== ENCOUNTER 2024-12-30 12:09 | Outpatient (CLI) | payer OTHER, SELFPAY ==
[2024-12-30] MEDS: ERTAPENEM SODIUM 1 GM VIAL IM (12:27)
[2024-12-30 12:30] VITALS: BP 104/82; PULSE 62; RESP 18; TEMP 36.1; O2SAT 97
== END 2024-12-30 12:30 | disposition home or self-care (01) ==
LOC: INF 12:10
PROVIDERS: PCP Internal Medicine; Visit Provider Internal Medicine
DX: N39.0 Urinary tract infection, site not specified (principal); B96.4 Proteus (mirabilis) (morganii) as the cause of diseases classified elsewhere; Z16.12 Extended spectrum beta lactamase (ESBL) resistance
CPT/HCPCS: 96372; J1335

== ENCOUNTER 2024-12-31 11:44 | Outpatient (CLI) | payer OTHER, SELFPAY ==
[2024-12-31] MEDS: ERTAPENEM SODIUM 1 GM VIAL IM (12:06)
[2024-12-31 12:18] VITALS: BP 116/68; PULSE 57; RESP 16; TEMP 36.7; O2SAT 96
== END 2024-12-31 12:18 | disposition home or self-care (01) ==
LOC: INF 11:44
PROVIDERS: PCP Internal Medicine; Visit Provider Internal Medicine
DX: J18.9 Pneumonia, unspecified organism (principal)
CPT/HCPCS: 96372; J1335

== ENCOUNTER 2025-01-01 12:06 | Outpatient (CLI) | payer OTHER, SELFPAY ==
[2025-01-01] MEDS: ERTAPENEM SODIUM 1 GM VIAL IM (12:28)
[2025-01-01 12:30] VITALS: BP 101/59; PULSE 57; RESP 17; O2SAT 96
== END 2025-01-01 12:45 | disposition home or self-care (01) ==
LOC: INF 12:07
PROVIDERS: PCP Internal Medicine; Visit Provider Internal Medicine
DX: N39.0 Urinary tract infection, site not specified (principal)
CPT/HCPCS: 96372; J1335

== ENCOUNTER 2025-01-02 12:15 | Outpatient (CLI) | payer OTHER, SELFPAY ==
[2025-01-02] MEDS: ERTAPENEM SODIUM 1 GM VIAL IM (12:50)
== END 2025-01-02 23:59 | disposition home or self-care (01) ==
LOC: INF 12:15
PROVIDERS: PCP Internal Medicine; Visit Provider Internal Medicine
DX: N39.0 Urinary tract infection, site not specified (principal); B96.4 Proteus (mirabilis) (morganii) as the cause of diseases classified elsewhere; Z16.12 Extended spectrum beta lactamase (ESBL) resistance
CPT/HCPCS: 96372; J1335

== ENCOUNTER 2025-01-03 12:14 | Outpatient (CLI) | payer OTHER, SELFPAY ==
[2025-01-03] MEDS: ERTAPENEM SODIUM 1 GM VIAL IM (12:34)
== END 2025-01-03 23:59 | disposition home or self-care (01) ==
LOC: INF 12:15
PROVIDERS: PCP Internal Medicine; Visit Provider Internal Medicine
DX: N39.0 Urinary tract infection, site not specified (principal); B96.4 Proteus (mirabilis) (morganii) as the cause of diseases classified elsewhere; Z16.12 Extended spectrum beta lactamase (ESBL) resistance
CPT/HCPCS: 96372; J1335

== ENCOUNTER 2025-01-03 12:48 | Emergency (ER) | payer OTHER, SELFPAY ==
[2025-01-03] VITALS (8 sets, daily range): BP systolic 102–139; BP diastolic 67–87; PULSE 62–74; RESP 12–24; TEMP 36.4–36.8; O2SAT 92–95; BMI 49.6
--- NOTE | 2025-01-03 12:54 | ECG_ITS ---
APPROVED REPORT Exam: Resting ECG HR:65 bpm ECG Measurements Heart Rate 65 AXES AZ 154 P 47 QRSd 87 QRS 46 QT 416 T 58 QTc 428 Conclusion SINUS RHYTHM Nonspecific ST/T wave changes without definitive STEMI. Motion artifact Electronically signed by : BONNY CADE, 01/03/2025 15:02:57
[2025-01-03 13:11] LABS: Coronavirus 19, PCR Not Detected (NotDetected); Influenza A, PCR Not Detected (NotDetected); Influenza B, PCR Not Detected (NotDetected)
[2025-01-03 13:13] LABS: Basophils # 0.1 K/mm3 (0-0.2); Basophils % 0.7 % (0.1-2.0); Eosinophils # 0.2 K/mm3 (0.0-0.4); Eosinophils % 2.3 % (0.1-12.0); Hematocrit 47.9 % (37.0-47.0); Hemoglobin 15.3 g/dL (12.2-16.2); Lymphocytes # 2.9 K/mm3 (0.7-4.5); Lymphocytes % 28.4 % (10-50); Mean Corpuscular HGB Conc 31.9 g/dL (31.8-35.4); Mean Corpuscular Hemoglobin 27.9 pg (27.0-31.2); Mean Corpuscular Volume 87.4 fl (81-99); Mean Platelet Volume 9.8 fl (7.4-10.4); Monocytes # 0.6 K/mm3 (0.1-1.0); Monocytes % 5.9 % (1.7-9.3); Neutrophils # 6.3 K/mm3 (1.8-7.8); Neutrophils % 62.4 % (37.0-80.0); Platelet Count 295 K/mm3 (142-424); Red Blood Count 5.48 M/mm3 (4.20-5.40); Red Cell Distribution Width 13.8 % (11.5-17.5); White Blood Count 10.2 K/mm3 (4.8-10.8)
--- NOTE | 2025-01-03 13:14 | ECG_ITS ---
APPROVED REPORT Exam: Resting ECG HR:56 bpm ECG Measurements Heart Rate 56 AXES UT 164 P 39 QRSd 88 QRS 21 QT 424 T 31 QTc 416 Conclusion SINUS BRADYCARDIA Nonspecific ST/T wave changes without acute STEMI. Not significantly changed from prior EKG. Discussed with cardiology Electronically signed by : BONNY CADE, 01/03/2025 15:02:38
[2025-01-03 13:23] LABS: Albumin Level 4.2 g/dl (3.5-5.0); Chloride 102 mmol/L (98-107)
[2025-01-03 13:24] LABS: Potassium 4.2 mmoL/L (3.5-5.1); Sodium 136 mmol/L (136-145)
[2025-01-03 13:26] LABS: Blood Urea Nitrogen 15 mg/dl (7-17); Creatinine Clearance Estimated 79 mL/min (50-200); Estimated Glomerular Filt Rate 88 ml/min (>60); GFR (African American) 107 ML/MIN (>60)
[2025-01-03 13:27] LABS: Alanine Aminotransferase 76 U/L (12-78); Albumin/Globulin Ratio 1.5 (1.1-1.8); Alkaline Phosphatase 99 U/L (38-126); Anion Gap 9.2 mEq/L (5-15); Aspartate Amino Transferase 68 U/L (14-36); Bilirubin,Total 0.6 mg/dl (0.2-1.3); Calcium 9.6 mg/dl (8.4-10.2); Carbon Dioxide 29 mmol/L (22.0-30.0); Globulin 2.8 g/dL (1.3-3.2); Glucose 163 mg/dl (74-100)
[2025-01-03 13:42] LABS: Troponin I < 0.01 ng/ml (0.00-0.034)
--- NOTE | 2025-01-03 13:43 | XR_ITS ---
PROCEDURE INFORMATION: Exam: XR Chest Exam date and time: 01/03/2025 1:52 PM Age: 49 years old Clinical indication: Pain; Chest pressure; Additional info: Chest pain TECHNIQUE: Imaging protocol: Radiologic exam of the chest. Views: 1 view. COMPARISON: CR XR CHEST PORTABLE 08/02/2024 2:33 PM FINDINGS: Lungs: Unremarkable. No consolidation. Pleural spaces: Unremarkable. No pleural effusion. No pneumothorax. Heart/Mediastinum: Unremarkable. No cardiomegaly. Bones/joints: Unremarkable. IMPRESSION: No acute findings.
--- NOTE | 2025-01-03 13:56 | ED_ITS ---
Discharge Plan Disposition Patient Disposition: Home, Self-Care Condition: Good Prescriptions Prescriptions: No Action tizanidine [Zanaflex] 4 mg capsule 4 mg PO TIDP PRN (Reason: Muscle Spasm) spironolactone [Aldactone] 50 mg tablet 50 mg PO DAILY bumetanide 2 mg tablet 2 mg PO BID Entresto 24-26 mg tablet 1 tab PO BID (DME) OneTouch Verio test strips Strip See Rx Instructions .Route Qty: 300 1RF Rx Instructions: As directed methenamine hippurate 1 gram tablet 1 g PO BID Qty: 60 5RF cholecalciferol (vitamin D3) 125 mcg (5,000 unit) capsule 5,000 unit PO .QOD Qty: 90 1RF albuterol sulfate [ProAir HFA] 90 mcg/actuation HFA aerosol inhaler 2 puff IH Q4HP PRN (Reason: Shortness Of Breath) promethazine 25 mg tablet 12.5 mg PO Q4HP PRN (Reason: Nausea) omeprazole 20 mg capsule,delayed release(DR/EC) 20 mg PO DAILY empagliflozin 25 mg tablet 25 mg PO DAILY Qty: 90 1RF tirzepatide 2.5 mg/0.5 mL pen injector 2.5 mg SQ WEEKLY Qty: 2.5 0RF Rx Instructions: for 4 weeks metformin 500 mg tablet See Rx Instructions .ROUTE .COMPLEX Qty: 180 1RF Dose Instruction: TAKE ONE TABLET BY MOUTH TWICE DAILY Rx Instructions: TAKE ONE TABLET BY MOUTH TWICE DAILY ondansetron HCl 4 mg tablet See Rx Instructions .ROUTE .COMPLEX Qty: 30 1RF Dose Instruction: TAKE ONE TABLET BY MOUTH EVERY 8 HOURS NEEDED FOR NAUSEA AND VOMITING Rx Instructions: TAKE ONE TABLET BY MOUTH EVERY 8 HOURS NEEDED FOR NAUSEA AND VOMITING ibuprofen 800 mg tablet See Rx Instructions .ROUTE .COMPLEX Qty: 90 1RF Dose Instruction: TAKE ONE TABLET BY MOUTH THREE TIMES DAILY NEEDED WITH FOOD Rx Instructions: TAKE ONE TABLET BY MOUTH THREE TIMES DAILY NEEDED WITH FOOD montelukast 10 mg tablet See Rx Instructions .ROUTE .COMPLEX Qty: 90 1RF Dose Instruction: TAKE ONE TABLET BY MOUTH EVERY DAY AT BEDTIME FOR ASTHMA Rx Instructions: TAKE ONE TABLET BY MOUTH EVERY DAY AT BEDTIME FOR ASTHMA phenazopyridine 200 mg tablet 200 mg PO TID MDD Pain on urination PRN (Reason: Pain on urination) Qty: 30 1RF Rx Instructions: Take with food nitroglycerin 0.4 mg tablet, sublingual 0.4 mg sublingual Q5M Qty: 30 2RF Rx Instructions: do not exceed 3 doses per episode ascorbic acid (vitamin C) [Vitamin C] 500 mg tablet See Rx Instructions .ROUTE .COMPLEX Qty: 60 5RF Dose Instruction: TAKE ONE TABLET BY MOUTH TWICE DAILY Rx Instructions: TAKE ONE TABLET BY MOUTH TWICE DAILY pravastatin 40 mg tablet 40 mg PO HS Qty: 90 1RF Trelegy Ellipta 100-62.5-25 mcg blister with device See Rx Instructions .ROUTE .COMPLEX Qty: 60 2RF Dose Instruction: INHALE 1 PUFF BY MOUTH EVERY DAY --RINSE MOUTH AFTER USE-- Rx Instructions: INHALE 1 PUFF BY MOUTH EVERY DAY --RINSE MOUTH AFTER USE-- oxybutynin chloride 5 mg tablet 5 mg PO BID PRN (Reason: bladder spasms) Qty: 60 1RF methylprednisolone 4 mg tablets,dose pack See Rx Instructions PO PER PKG DIR Qty: 21 0RF Rx Instructions: PO PER PKG DIR tramadol 50 mg tablet 50 mg PO Q6H PRN (Reason: pain) Qty: 120 0RF nebivolol 5 MG tablet 5 mg PO DAILY ipratropium-albuterol 0.5 mg-3 mg(2.5 mg base)/3 mL solution for nebulization 3 ml INHALATION QID Patient Comments: INHALE THE CONTENTS OF 1 VIAL VIA NEBULIZER FOUR TIMES DAILY DIRECTED cetirizine [Zyrtec] 10 mg Tablet 10 mg PO DAILY Referrals Follow up/Referrals: Juarez Griffin MD [Primary Care Provider] - See instructions Keaton Dalton MD [Staff Physician] - See instructions Activity Restrictions/Add. Instructions Additional Instructions/Restrictions: You were evaluated in the emergency department today. Please follow-up closely with your primary care provider. Also follow-up closely with cardiology. Return to the emergency department for new or worsening symptoms. Clinical Impressions Clinical Impression: Chest pain Print Language Print Language: French Discharge ED Provider: Moriah Singh HPI <Moriah Singh DO - Last Filed: 01/03/25 16:25> General Chief Complaint: Chest Pain Stated Complaint: CP Time Seen by Provider: 01/03/25 12:56 Mode of Arrival: Wheelchair Source of Information: Patient Description of Symptoms (Recalled from ER Triage Doc. by RN): Patient presents to triage with her . Reports left sided chest pain radiating to her back. Also endorses shortness of breath. States she just finished in the infusion center where she got an injection. States she has a history of pericarditis, COPD, and congestive heart failure. Endorses nausea. Denies vomiting. No diaphoresis noted. Rates the chest at a 7. History of Present Illness HPI narrative: This patient is a 49-year-old female with a history of morbid obesity, recurrent urinary tract infections on Invanz infusions, type 2 diabetes, chronic diastolic heart failure, hypertension, COPD presenting to the emergency department for evaluation with concern for chest pain. Patient reports that she started having chest pain at around 11:30 AM. She notes that she was getting her Invanz infusion and wanted to go to the car to try nitro to see if it helped make her feel better, but her significant other advised that she should come to the ED to get evaluated. She notes that the pain is in the middle of her chest radiating around to her back. She states that it is severe, almost as bad as a kidney stone. Nothing seems to make it better or worse, is just always there. She does note that she has had a recent cough and shortness of breath/URI type symptoms. No abdominal pain, vomiting, or other concerns. Related Data Home Medications ?Medication ?Instructions ?Recorded ?Confirmed tizanidine 4 mg capsule (Zanaflex) 4 mg PO TIDP PRN Muscle Spasm 02/22/20 01/01/25 nebivolol 5 mg tablet 5 mg PO DAILY 12/21/21 01/01/25 albuterol sulfate 90 mcg/actuation 2 puff inhalation Q4HP PRN 12/28/21 01/01/25 aerosol inhaler (ProAir HFA) Shortness Of Breath promethazine 25 mg tablet 12.5 mg PO Q4HP PRN Nausea 03/30/22 01/01/25 spironolactone 50 mg tablet 50 mg PO DAILY 03/30/22 01/01/25 (Aldactone) omeprazole 20 mg capsule,delayed 20 mg PO DAILY 04/24/22 01/01/25 release bumetanide 2 mg tablet 2 mg PO BID 03/04/23 01/01/25 sacubitril 24 mg-valsartan 26 mg 1 tab PO BID 03/04/23 01/01/25 tablet (Entresto) cetirizine 10 mg tablet (Zyrtec) 10 mg PO DAILY 02/06/24 01/01/25 ipratropium 0.5 mg-albuterol 3 mg 3 ml inhalation QID 02/06/24 01/01/25 (2.5 mg base)/3 mL nebulization soln Previous Rx's ?Medication ?Instructions ?Recorded empagliflozin 25 mg tablet 25 mg PO DAILY #90 tabs 07/23/24 metformin 500 mg tablet See Rx Instructions .Route 07/28/24 .COMPLEX #180 tabs ondansetron HCl 4 mg tablet See Rx Instructions .Route 08/05/24 .COMPLEX #30 tabs blood sugar diagnostic (OneTouch #300 ea 09/02/24 Verio test strips) ibuprofen 800 mg tablet See Rx Instructions .Route 10/02/24 .COMPLEX #90 tabs cholecalciferol (vitamin D3) 125 5,000 unit PO .QOD #90 caps 10/07/24 mcg (5,000 unit) capsule methenamine hippurate 1 gram tablet 1 g PO BID #60 tabs 10/07/24 montelukast 10 mg tablet See Rx Instructions .Route 10/29/24 .COMPLEX #90 tabs phenazopyridine 200 mg tablet 200 mg PO TID PRN Pain on 10/29/24 urination #30 tabs ascorbic acid (vitamin C) 500 mg See Rx Instructions .Route 10/30/24 tablet (Vitamin C) .COMPLEX #60 tabs nitroglycerin 0.4 mg sublingual 0.4 mg sublingual Q5M #30 tabs 10/30/24 tablet pravastatin 40 mg tablet 40 mg PO HS #90 tabs 11/11/24 fluticasone fur. 100 mcg-umeclid See Rx Instructions .Route 11/27/24 62.5 mcg-vilant 25 mcg .COMPLEX #60 blisters inhalat.powder (Trelegy Ellipta) oxybutynin chloride 5 mg tablet 5 mg PO BID PRN bladder spasms #60 12/01/24 tabs tirzepatide 2.5 mg/0.5 mL 2.5 mg (0.5 mL) SQ WEEKLY #2.5 mL 12/15/24 subcutaneous pen injector methylprednisolone 4 mg tablets in See Rx Instructions PO PER PKG DIR 12/21/24 a dose pack #21 tabs tramadol 50 mg tablet 50 mg PO Q6H PRN pain #120 tabs 01/01/25 Allergies Allergy/AdvReac Type Severity Reaction Status Date / Time aspirin Allergy Severe S-DIFF. Verified 12/31/24 12:27 BREATHING bee venom protein (honey bee) Allergy Severe Anaphylaxis Verified 12/31/24 12:27 Bleach (Sodium Hypochlorite) Allergy Severe diff. Verified 12/31/24 12:27 breathing, dizzy amoxicillin (From Augmentin) Allergy Mild Unknown Verified 12/31/24 12:27 allergy reaction clavulanic acid (From Allergy Mild Unknown Verified 12/31/24 12:27 Augmentin) allergy reaction fluconazole (From Diflucan) Allergy Mild Unknown Verified 12/31/24 12:27 allergy reaction levofloxacin (From Levaquin) Allergy Difficulty Verified 12/31/24 12:27 Breathing pneumococcal vaccine Allergy Unknown Verified 12/31/24 12:27 allergy reaction sulfamethoxazole (From Allergy Unknown Verified 12/31/24 12:27 Bactrim) allergy reaction trimethoprim (From Bactrim) Allergy Unknown Verified 12/31/24 12:27 allergy reaction sucralose (From SUCRALOSE AdvReac Severe breathing Verified 12/31/24 12:27 (FOOD/DRUG)) problems [facility] <Moriah Singh DO - Last Filed: 01/03/25 16:25> [facility] Disclaimer: The information contained in this section may have been updated after the patient was seen, as this information can be updated by other users. Medical History Ovarian cyst Hematuria Vaginal pruritus History of nephrolithotomy with removal of calculi Hyperparathyroidism Multiple thyroid nodules Asthma with exacerbation Syncopal episodes Right flank pain Adnexal mass Septic shock Severe sepsis with acute organ dysfunction Cellulitis of right wrist Pneumonia Syncope Altered mental status Surgical History History of cardiac catheterization History of loop recorder History of eye surgery History of cholecystectomy S/P right oophorectomy S/P hysterectomy History of tubal ligation Family History Other Alzheimer disease Bipolar 1 disorder Dementia Family history of diabetes mellitus type II Family history of myocardial infarction Lung cancer Lupus Social History Smoking Status: Unknown if ever smoked second hand exposure: No alcohol intake: never substance use type: denies use current occupational status: unemployed and disabled Travel in the last 8 weeks: None household members: spouse housing: house current occupational exposures/hazards: No caffeine: Yes Have you lived/traveled outside [place] in past 30 days?: No Contact w/someone who lives/traveled outside [place] past 30 days?: No Exposure to someone with infectious disease in past 14 days?: No Do you have a fever (greater than 100.4 F or 38 C)?: No Have you tested positive for COVID-19: No Exposed to someone with COVID-19 in past 14 days?: No Do you have a sore throat?: No Do you have a cough?: No Do you have any weakness?: Yes Do you have any diarrhea?: No Are you experiencing any unusual bleeding?: No Do you have any muscle aches/pain?: No Do you have any abdominal pain?: No Are you experiencing loss of taste or smell?: No Other Medical History Have you received the Flu Vaccine for this season: No Have you received the Pneumonia Vaccine: Yes <Moriah Singh DO - Last Filed: 01/03/25 16:25> ROS Obtained: Yes All systems reviewed & no additional complaints except as documented Physical Exam <Moriah Singh DO - Last Filed: 01/03/25 16:25> General General appearance: alert, in no apparent distress and obese Head Head exam: atraumatic and normocephalic Eye Eye exam: Present normal appearance, PERRL and EOMI ENT ENT exam: Present normal exam, normal oropharynx, mucous membranes moist and normal external ear exam Neck Neck exam: Present normal inspection, full ROM and trachea midline; Absent tenderness Chest Chest inspection: Present normal inspection and symmetric chest wall rise; Absent tenderness Respiratory Respiratory exam: Present normal lung sounds bilaterally; Absent respiratory distress, wheezes, stridor or accessory muscle use Cardiovascular Cardiovascular exam: Present regular rate and normal rhythm Abdominal Exam Abdominal exam: Present soft; Absent distention, tenderness or guarding Extremities Exam Extremities exam: Present normal inspection, full ROM and normal capillary refill; Absent tenderness or edema Back Exam Back exam: Present normal inspection and full ROM; Absent tenderness Neurological Exam Neurological exam: Present alert, oriented X3, CN II-XII intact and normal gait; Absent motor sensory deficit Psychiatric Psychiatric exam: Present normal affect and normal mood Skin Skin exam: Present warm and dry HEART Score <Moriah Singh DO - Last Filed: 01/03/25 16:25> HEART Score HEART Score assessment performed?: Yes History (anamnesis): Slightly suspicious ECG: Normal Age: 45-65 years Risk factors: Atherosclerosis history Troponin: </= normal limit HEART Score: 3 <Da Draper MD - Last Filed: 01/03/25 23:08> HEART Score HEART Score: 3 Critical Care <Moriah Singh DO - Last Filed: 01/03/25 16:25> Critical Care Time Critical Care Time: No Medical Decision Making <Moriah Singh DO - Last Filed: 01/03/25 16:25> Harjinder Inquiry Pt receiving controlled substance: No Vital Signs Vital Signs: 01/03/25 12:50 01/03/25 13:31 01/03/25 14:01 Temperature 97.6 F Temperature Source Oral Pulse Rate 71 Pulse Rate [Radial] 62 Respiratory Rate 20 24 22 Blood Pressure 137/83 139/82 Blood Pressure [R Arm] 129/87 Blood Pressure Mean [R Arm] 101 Blood Pressure Source [R Arm] Automatic Cuff Blood Pressure Position [R Arm] Sitting 02 Sat by Pulse Oximetry 95 93 L 92 L Oxygen Delivery Method Room Air Room Air Room Air 01/03/25 14:30 01/03/25 15:00 01/03/25 15:30 Temperature Temperature Source Pulse Rate 70 74 68 Pulse Rate [Radial] Respiratory Rate 14 12 15 Blood Pressure 120/81 106/67 L 103/74 L Blood Pressure [R Arm] Blood Pressure Mean [R Arm] Blood Pressure Source [R Arm] Blood Pressure Position [R Arm] 02 Sat by Pulse Oximetry 93 L 93 L 94 L Oxygen Delivery Method Room Air Room Air Room Air 01/03/25 17:14 01/03/25 17:19 Temperature 98.2 F Temperature Source Pulse Rate 69 69 Pulse Rate [Radial] Respiratory Rate 20 Blood Pressure 102/75 L Blood Pressure [R Arm] Blood Pressure Mean [R Arm] Blood Pressure Source [R Arm] Blood Pressure Position [R Arm] 02 Sat by Pulse Oximetry Oxygen Delivery Method Room Air Lab Data Labs: Lab Results 01/03/25 12:54: WBC 10.2, RBC 5.48 H, Hgb 15.3, Hct 47.9 H, MCV 87.4, MCH 27.9, MCHC 31.9, RDW 13.8, Plt Count 295, MPV 9.8, Neut % (Auto) 62.4, Lymph % (Auto) 28.4, [place] % (Auto) 5.9, Eos % (Auto) 2.3, Baso % (Auto) 0.7, Neut # (Auto) 6.3, Lymph # (Auto) 2.9, [place] # (Auto) 0.6, Eos # (Auto) 0.2, Baso # (Auto) 0.1, D- Dimer 0.45, Sodium 136, Potassium 4.2, Chloride 102, Carbon Dioxide 29, Anion Gap 9.2, BUN 15, Creatinine 0.70, Estimated Creat Clear 79, Estimated GFR 88, Est GFR ( Amer) 107, Glucose 163 H, Calcium 9.6, Total Bilirubin 0.6, AST 68 H, ALT 76, Alkaline Phosphatase 99, Troponin I < 0.01, Total Protein 7.0, Albumin 4.2, Globulin 2.8, Albumin/Globulin Ratio 1.5, Lipase 127, SARS-CoV-2 (PCR) Not detected, Influenza A Untype (PCR) Not detected, Influenza Type B (PCR) Not detected 01/03/25 15:26: Troponin I 0.02 01/03/25 12:54 01/03/25 12:54 Response Orders (Tests/Meds): ED MEDICATIONS Discontinued Medications Generic Name Dose Route Start Last Admin Trade Name Rustamq PRN Reason Stop Dose Admin Acetaminophen 1,000 mg 01/03/25 13:47 01/03/25 14:16 Acetaminophen 1,000mg/100ml Vial IV 01/03/25 13:48 1,000 mg ONCE ONE Administration Belladonna Alkaloids 60 ml 01/03/25 13:47 01/03/25 14:16 Belladonna Alkaloids 60 Ml Ml PO 01/03/25 13:48 60 ml ONCE ONE Administration Ketorolac Tromethamine 15 mg 01/03/25 13:47 01/03/25 14:16 Ketorolac 30mg/Ml Vial IV 01/03/25 13:48 15 mg ONCE ONE Administration ORDERS Category Date Time Status CXR --portable [XR chest portable] Stat Exams 01/03/25 13:43 Completed Complete Blood Count Auto Diff Stat Lab 01/03/25 12:54 Completed Comprehensive Metabolic Panel Stat Lab 01/03/25 12:54 Completed D-Dimer Stat Lab 01/03/25 12:54 Completed Lipase Stat Lab 01/03/25 12:54 Completed Rapid PCR Covid and Flu A/B Stat Lab 01/03/25 12:54 Completed Troponin I Q3H Lab 01/03/25 15:26 Completed Troponin I Stat Lab 01/03/25 12:54 Ordered ECG Data Tracing #1: Attestation: I reviewed this ECG and interpreted as documented below: ECG Narrative: Sinus rhythm with a ventricular rate of [address]/T wave changes. Motion artifact degraded study. Not significant change from prior EKG, no STEMI. ECG initial impression date: 01/03/25 ECG initial impression time: 12:56 Tracing #2: Attestation: I reviewed this ECG and interpreted as documented below: ECG Narrative: Sinus bradycardia with a ventricular to [address]/T wave changes not significantly changed from prior EKG. I did discuss this with Dr. Bui with cardiology who agrees no STEMI ECG initial impression date: 01/03/25 ECG initial impression time: 13:04 MDM Narrative Medical Decision Narrative: In summary, this patient is a 49-year-old female presenting to the Emergency Department for evaluation of chest pain. Differential diagnoses considered include but are not limited to ACS, dysrhythmia, GERD, esophageal spasms, costochondritis, PE, aortic pathology. Ruling out the most morbid conditions drove assessment. It should be noted patient's history includes morbid obesity, type 2 diabetes, hypertension, hyperlipidemia, diastolic heart failure which may or may not be at goal therapy. This complicates all aspects of care by increasing patient's risk for morbidity. I reviewed patient's past medical records and noted previous ED evaluations for chest pain in the past, most recent evaluation 08/02/2024. Workup at that time was reassuring, concerning for COPD exacerbation. She was discharged with instructions for supportive management.. On exam, the patient is lying in bed in no acute distress. She has symmetric pulses bilaterally, normal vitals on cardiac telemetry with no significant hypertension or tachycardia. Given this, I feel aortic dissection is unlikely. Also cannot use PERC criteria to exclude PE given her age over 50, however I do feel that PE is unlikely based on history and exam. Workup included CBC, CMP, troponin, D-dimer, lipase, chest x-ray, EKG. EKG obtained demonstrates nonspecific ST/T wave changes. I did discuss changes with cardiology who advised that this is not a STEMI and is actually improved from her prior EKG. Patient was given IV Toradol, acetaminophen, oral GI cocktail for symptomatic improvement. I independently interpreted chest x-ray prior to the radiologist read and noted no large focal consolidation concerning for pneumonia, no pneumothorax. Please see their read for final interpretation. Labs were obtained that demonstrated reassuring CBC with no significant leukocytosis or anemia, reassuring chemistry with negative D-dimer, negative initial troponin. On reassessment, patient had good improvement after administration of interventions above. She is resting comfortably. Patient care signed out to the oncoming provider, Dr. Draper, pending 2nd troponin. <Da Draper MD - Last Filed: 01/03/25 23:08> Vital Signs Vital Signs: 01/03/25 12:50 01/03/25 13:31 01/03/25 14:01 Temperature 97.6 F Temperature Source Oral Pulse Rate 71 Pulse Rate [Radial] 62 Respiratory Rate 20 24 22 Blood Pressure 137/83 139/82 Blood Pressure [R Arm] 129/87 Blood Pressure Mean [R Arm] 101 Blood Pressure Source [R Arm] Automatic Cuff Blood Pressure Position [R Arm] Sitting 02 Sat by Pulse Oximetry 95 93 L 92 L Oxygen Delivery Method Room Air Room Air Room Air 01/03/25 14:30 01/03/25 15:00 01/03/25 15:30 Temperature Temperature Source Pulse Rate 70 74 68 Pulse Rate [Radial] Respiratory Rate 14 12 15 Blood Pressure 120/81 106/67 L 103/74 L Blood Pressure [R Arm] Blood Pressure Mean [R Arm] Blood Pressure Source [R Arm] Blood Pressure Position [R Arm] 02 Sat by Pulse Oximetry 93 L 93 L 94 L Oxygen Delivery Method Room Air Room Air Room Air 01/03/25 17:14 01/03/25 17:19 Temperature 98.2 F Temperature Source Pulse Rate 69 69 Pulse Rate [Radial] Respiratory Rate 20 Blood Pressure 102/75 L Blood Pressure [R Arm] Blood Pressure Mean [R Arm] Blood Pressure Source [R Arm] Blood Pressure Position [R Arm] 02 Sat by Pulse Oximetry Oxygen Delivery Method Room Air Lab Data Labs: Lab Results 01/03/25 12:54: WBC 10.2, RBC 5.48 H, Hgb 15.3, Hct 47.9 H, MCV 87.4, MCH 27.9, MCHC 31.9, RDW 13.8, Plt Count 295, MPV 9.8, Neut % (Auto) 62.4, Lymph % (Auto) 28.4, [place] % (Auto) 5.9, Eos % (Auto) 2.3, Baso % (Auto) 0.7, Neut # (Auto) 6.3, Lymph # (Auto) 2.9, [place] # (Auto) 0.6, Eos # (Auto) 0.2, Baso # (Auto) 0.1, D- Dimer 0.45, Sodium 136, Potassium 4.2, Chloride 102, Carbon Dioxide 29, Anion Gap 9.2, BUN 15, Creatinine 0.70, Estimated Creat Clear 79, Estimated GFR 88, Est GFR ( Amer) 107, Glucose 163 H, Calcium 9.6, Total Bilirubin 0.6, AST 68 H, ALT 76, Alkaline Phosphatase 99, Troponin I < 0.01, Total Protein 7.0, Albumin 4.2, Globulin 2.8, Albumin/Globulin Ratio 1.5, Lipase 127, SARS-CoV-2 (PCR) Not detected, Influenza A Untype (PCR) Not detected, Influenza Type B (PCR) Not detected 01/03/25 15:26: Troponin I 0.02 Response Orders (Tests/Meds): ED MEDICATIONS Discontinued Medications Generic Name Dose Route Start Last Admin Trade Name Freq PRN Reason Stop Dose Admin Acetaminophen 1,000 mg 01/03/25 13:47 01/03/25 14:16 Acetaminophen 1,000mg/100ml Vial IV 01/03/25 13:48 1,000 mg ONCE ONE Administration Belladonna Alkaloids 60 ml 01/03/25 13:47 01/03/25 14:16 Belladonna Alkaloids 60 Ml Ml PO 01/03/25 13:48 60 ml ONCE ONE Administration Ketorolac Tromethamine 15 mg 01/03/25 13:47 01/03/25 14:16 Ketorolac 30mg/Ml Vial IV 01/03/25 13:48 15 mg ONCE ONE Administration ORDERS Category Date Time Status CXR --portable [XR chest portable] Stat Exams 01/03/25 13:43 Completed Complete Blood Count Auto Diff Stat Lab 01/03/25 12:54 Completed Comprehensive Metabolic Panel Stat Lab 01/03/25 12:54 Completed D-Dimer Stat Lab 01/03/25 12:54 Completed Lipase Stat Lab 01/03/25 12:54 Completed Rapid PCR Covid and Flu A/B Stat Lab 01/03/25 12:54 Completed Troponin I Q3H Lab 01/03/25 15:26 Completed Troponin I Stat Lab 01/03/25 12:54 Ordered MDM Narrative Medical Decision Narrative: In summary, this patient is a 49-year-old female presenting to the Emergency Department for evaluation of chest pain. Differential diagnoses considered include but are not limited to ACS, dysrhythmia, GERD, esophageal spasms, costochondritis, PE, aortic pathology. Ruling out the most morbid conditions drove assessment. It should be noted patient's history includes morbid obesity, type 2 diabetes, hypertension, hyperlipidemia, diastolic heart failure which may or may not be at goal therapy. This complicates all aspects of care by increasing patient's risk for morbidity. I reviewed patient's past medical records and noted previous ED evaluations for chest pain in the past, most recent evaluation 08/02/2024. Workup at that time was reassuring, concerning for COPD exacerbation. She was discharged with instructions for supportive management.. On exam, the patient is lying in bed in no acute distress. She has symmetric pulses bilaterally, normal vitals on cardiac telemetry with no significant hypertension or tachycardia. Given this, I feel aortic dissection is unlikely. Also cannot use PERC criteria to exclude PE given her age over 50, however I do feel that PE is unlikely based on history and exam. Workup included CBC, CMP, troponin, D-dimer, lipase, chest x-ray, EKG. EKG obtained demonstrates nonspecific ST/T wave changes. I did discuss changes with cardiology who advised that this is not a STEMI and is actually improved from her prior EKG. Patient was given IV Toradol, acetaminophen, oral GI cocktail for symptomatic improvement. I independently interpreted chest x-ray prior to the radiologist read and noted no large focal consolidation concerning for pneumonia, no pneumothorax. Please see their read for final interpretation. Labs were obtained that demonstrated reassuring CBC with no significant leukocytosis or anemia, reassuring chemistry with negative D-dimer, negative initial troponin. On reassessment, patient had good improvement after administration of interventions above. She is resting comfortably. Patient care signed out to the oncoming provider, Dr. Draper, pending 2nd troponin. Da Draper MD MARY: I assumed care of this patient from the previous emergency medicine physician. Repeat troponin was within normal limits. Patient reports overall improvement of symptoms and after discussion of the workup and my clinical impression, patient will be discharged after shared decision making. Return precautions given.
[2025-01-03] MEDS: BELLADONNA ALKALOIDS 60 ML ML PO (14:16)
[2025-01-03] MEDS: ACETAMINOPHEN 1,000MG/100ML VIAL 1000 MG IV (14:16)
[2025-01-03] MEDS: KETOROLAC 30MG/ML VIAL 15 MG IV (14:16)
[2025-01-03 14:32] LABS: Lipase 127 U/L (23-300)
[2025-01-03 14:34] LABS: D-Dimer 0.45 ug/mL (0.0-0.5)
[2025-01-03 16:21] LABS: Troponin I 0.02 ng/ml (0.00-0.034)
== END 2025-01-03 17:21 | disposition home or self-care (01) ==
PROVIDERS: Emergency Provider Emergency Medicine; PCP Internal Medicine
DX: R07.9 Chest pain, unspecified (principal); R06.02 Shortness of breath; R11.0 Nausea
CPT/HCPCS: 71045; 80053; 83690; 84484; 85025; 85378; 87636; 93005; 96374; 96375; 99284; J0131; J1885

== ENCOUNTER 2025-01-04 12:24 | Outpatient (CLI) | payer OTHER, SELFPAY ==
[2025-01-04 12:47] VITALS: BP 115/67; PULSE 63; RESP 14; TEMP 36.4; O2SAT 97
[2025-01-04] MEDS: ERTAPENEM SODIUM 1 GM VIAL IM (12:47)
== END 2025-01-04 13:00 | disposition home or self-care (01) ==
LOC: INF 12:25
PROVIDERS: PCP Internal Medicine; Visit Provider Internal Medicine
DX: A41.9 Sepsis, unspecified organism (principal); R65.21 Severe sepsis with septic shock
CPT/HCPCS: 96372; J1335

== ENCOUNTER 2025-01-27 17:52 | Observation (INO) | payer OTHER, SELFPAY ==
[2025-01-27 18:04] VITALS: BP 161/101; PULSE 69; RESP 16; TEMP 36.3; O2SAT 96; BMI 51.3
[2025-01-27 18:32] VITALS: BP 139/76; PULSE 85; O2SAT 98
[2025-01-27 18:37] LABS: Basophils # 0.1 K/mm3 (0-0.2); Basophils % 0.4 % (0.1-2.0); Eosinophils % 0.1 % (0.1-12.0); Hematocrit 49.6 % (37.0-47.0); Hemoglobin 16.2 g/dL (12.2-16.2); Lymphocytes # 2.4 K/mm3 (0.7-4.5); Lymphocytes % 14.4 % (10-50); Mean Corpuscular HGB Conc 32.7 g/dL (31.8-35.4); Mean Corpuscular Hemoglobin 28.3 pg (27.0-31.2); Mean Corpuscular Volume 86.6 fl (81-99); Mean Platelet Volume 9.9 fl (7.4-10.4); Monocytes # 0.9 K/mm3 (0.1-1.0); Monocytes % 5.3 % (1.7-9.3); Neutrophils # 13.4 K/mm3 (1.8-7.8); Neutrophils % 79.3 % (37.0-80.0); Platelet Count 326 K/mm3 (142-424); Red Blood Count 5.73 M/mm3 (4.20-5.40); Red Cell Distribution Width 13.7 % (11.5-17.5); White Blood Count 16.9 K/mm3 (4.8-10.8)
[2025-01-27 18:39] LABS: MANUAL DIFFERENTIAL MANUAL DIFFERENTIAL (MANUAL DIFF)
--- NOTE | 2025-01-27 18:44 | CT_ITS ---
PROCEDURE INFORMATION: Exam: CT Abdomen And Pelvis Without Contrast Exam date and time: 01/27/2025 6:46 PM Age: 49 years old Clinical indication: Abdominal pain; Flank; Left; Additional info: L flank pain TECHNIQUE: Imaging protocol: Computed tomography of the abdomen and pelvis without contrast. Radiation optimization: All CT scans at this facility use at least one of these dose optimization techniques: automated exposure control; mA and/or kV adjustment per patient size (includes targeted exams where dose is matched to clinical indication); or iterative reconstruction. COMPARISON: 1. CT ABDOMEN PELVIS W CON 04/10/2024 3:[address] ABDOMEN PELVIS WO CON 12/26/2023 9:[address] ABDOMEN PELVIS WO CON 03/01/2023 1:28 PM FINDINGS: Lungs: Stable subpleural bandlike nodular appearing density in the posteromedial left lower lobe adjacent to the heart border on image 13 of series [address] abdomen of 12/26/2023 and 03/01/2023. No follow-up advised. Liver: Fatty liver changes with associated hepatomegaly measuring 20 cm. Liver otherwise unremarkable. Gallbladder and biliary ducts: Status post cholecystectomy. No evident bile duct dilatation allowing for prior cholecystectomy. Pancreas: Normal. No ductal dilation. Spleen: Normal. No splenomegaly. Adrenal glands: Normal. No mass. Kidneys and ureters: Large staghorn calculus involving the left renal pelvis extending to the inferior pole calyx measuring 3.8 x 1.6 x 1.6 cm somewhat increased in size from previous CT of 04/10/2024. Previously there were 2 separate calcifications in this region including a 6 mm stone in the proximal portion of the infundibulum to the lower pole and a 13 mm stone in the inferior calyx to the lower pole. Left kidney and ureter otherwise unremarkable with no obstructing stones or uropathy. A 1 mm nonobstructing inferior right kidney stone. Right kidney and ureter otherwise unremarkable with no obstructing stones or uropathy.. Stomach and bowel: Unremarkable. No obstruction. No mucosal thickening. Appendix: Appendix is normal. No evidence of appendicitis. Intraperitoneal space: Unremarkable. No free air. No significant fluid collection. Vasculature: Unremarkable. No abdominal aortic aneurysm. Lymph nodes: Unremarkable. No enlarged lymph nodes. Urinary bladder: Unremarkable as visualized. Reproductive: Hysterectomy. Bones/joints: Unremarkable. No acute fracture. Soft tissues: Unremarkable. Other findings: A 10.3 cm benign-appearing cystic lesion again noted in the right lower quadrant region which is stable dating back to 02/06/2024. IMPRESSION: 1. No acute abnormalities of the abdomen and pelvis. Nonemergent findings as above. 2. Large staghorn calculus on the left measuring up to 3.8 cm with interval increase in size.
--- NOTE | 2025-01-27 18:45 | [facility].EDGENADL ---
Discharge Plan Disposition Patient Disposition: Admitted Chief Complaint: Nausea/Vomiting/Diarrhea Prescriptions Prescriptions: No Action tizanidine [Zanaflex] 4 mg capsule 4 mg PO TIDP PRN (Reason: Muscle Spasm) spironolactone [Aldactone] 50 mg tablet 50 mg PO DAILY bumetanide 2 mg tablet 2 mg PO BID Entresto 24-26 mg tablet 1 tab PO BID (DME) OneTouch Verio test strips Strip See Rx Instructions .Route Qty: 300 1RF Rx Instructions: As directed methenamine hippurate 1 gram tablet 1 g PO BID Qty: 60 5RF cholecalciferol (vitamin D3) 125 mcg (5,000 unit) capsule 5,000 unit PO .QOD Qty: 90 1RF albuterol sulfate [ProAir HFA] 90 mcg/actuation HFA aerosol inhaler 2 puff IH Q4HP PRN (Reason: Shortness Of Breath) promethazine 25 mg tablet 12.5 mg PO Q4HP PRN (Reason: Nausea) omeprazole 20 mg capsule,delayed release(DR/EC) 20 mg PO DAILY empagliflozin 25 mg tablet 25 mg PO DAILY Qty: 90 1RF tirzepatide 2.5 mg/0.5 mL pen injector 2.5 mg SQ WEEKLY Qty: 2.5 0RF Rx Instructions: for 4 weeks metformin 500 mg tablet See Rx Instructions .ROUTE .COMPLEX Qty: 180 1RF Dose Instruction: TAKE ONE TABLET BY MOUTH TWICE DAILY Rx Instructions: TAKE ONE TABLET BY MOUTH TWICE DAILY ondansetron HCl 4 mg tablet See Rx Instructions .ROUTE .COMPLEX Qty: 30 1RF Dose Instruction: TAKE ONE TABLET BY MOUTH EVERY 8 HOURS NEEDED FOR NAUSEA AND VOMITING Rx Instructions: TAKE ONE TABLET BY MOUTH EVERY 8 HOURS NEEDED FOR NAUSEA AND VOMITING ibuprofen 800 mg tablet See Rx Instructions .ROUTE .COMPLEX Qty: 90 1RF Dose Instruction: TAKE ONE TABLET BY MOUTH THREE TIMES DAILY NEEDED WITH FOOD Rx Instructions: TAKE ONE TABLET BY MOUTH THREE TIMES DAILY NEEDED WITH FOOD montelukast 10 mg tablet See Rx Instructions .ROUTE .COMPLEX Qty: 90 1RF Dose Instruction: TAKE ONE TABLET BY MOUTH EVERY DAY AT BEDTIME FOR ASTHMA Rx Instructions: TAKE ONE TABLET BY MOUTH EVERY DAY AT BEDTIME FOR ASTHMA phenazopyridine 200 mg tablet 200 mg PO TID MDD Pain on urination PRN (Reason: Pain on urination) Qty: 30 1RF Rx Instructions: Take with food nitroglycerin 0.4 mg tablet, sublingual 0.4 mg sublingual Q5M Qty: 30 2RF Rx Instructions: do not exceed 3 doses per episode ascorbic acid (vitamin C) [Vitamin C] 500 mg tablet See Rx Instructions .ROUTE .COMPLEX Qty: 60 5RF Dose Instruction: TAKE ONE TABLET BY MOUTH TWICE DAILY Rx Instructions: TAKE ONE TABLET BY MOUTH TWICE DAILY pravastatin 40 mg tablet 40 mg PO HS Qty: 90 1RF Trelegy Ellipta 100-62.5-25 mcg blister with device See Rx Instructions .ROUTE .COMPLEX Qty: 60 2RF Dose Instruction: INHALE 1 PUFF BY MOUTH EVERY DAY --RINSE MOUTH AFTER USE-- Rx Instructions: INHALE 1 PUFF BY MOUTH EVERY DAY --RINSE MOUTH AFTER USE-- oxybutynin chloride 5 mg tablet 5 mg PO BID PRN (Reason: bladder spasms) Qty: 60 1RF tramadol 50 mg tablet 50 mg PO Q6H PRN (Reason: pain) Qty: 120 0RF acetaminophen-codeine 300-30 mg tablet 1 tab PO Q6H PRN (Reason: cough) Qty: 30 0RF nebivolol 5 MG tablet 5 mg PO DAILY ipratropium-albuterol 0.5 mg-3 mg(2.5 mg base)/3 mL solution for nebulization 3 ml INHALATION QID Patient Comments: INHALE THE CONTENTS OF 1 VIAL VIA NEBULIZER FOUR TIMES DAILY DIRECTED cetirizine [Zyrtec] 10 mg Tablet 10 mg PO DAILY Referrals Follow up/Referrals: Juarez Griffin MD [Primary Care Provider] - See instructions Clinical Impressions Clinical Impression: Staghorn calculus Instructions Patient Instructions: DI for Diarrhea and Traveler's Diarrhea -- Adult, DI for Diarrhea and Traveler's Diarrhea -- Child, DI for Nausea -- Adult, DI for Nausea -- Child Print Language Print Language: Spanish Discharge ED Provider: David Molina General Adult HPI General Chief complaint: Nausea/Vomiting/Diarrhea Stated complaint: left abdominal pain,vomiting Time Seen by Provider: 01/27/25 18:12 Mode of Arrival: Wheelchair Source of Information: Patient Description of Symptoms (Recalled from ER Triage Doc. by RN): patient states she has had left flank pain moving toward groin and abdomen, vomiting that she cant control with phenagran or zofran. History of Present Illness HPI narrative: Patient is a 49-year-old female past medical history of recurrent ureterolithiasis some of which requiring intervention who presents emergency department for evaluation of flank pain. Onset was acute over the last 24 hours, left-sided. Wraps around her flank into her groin and suprapubic region. Pain is moderate to severe in intensity. There is associated nonbloody vomiting. No chest pain. No other acute complaints at this time. Please note that above description of symptoms, in this electronic medical record under categorization of recalled from ER triage doctor by RN are reflective of an initial nursing assessment, however, is not reflective of my full history and physical exam that was personally taken and clarified. Consequentially, this preceding description of symptoms, which may include the patient's categorized chief complaint in the EMR, do not reflect my personal clinical impression, and the ultimate description of history of present illness and patient stated complaints should be deferred to this section of the note. Unless stated otherwise or congruent with this section of the note, additional signs, symptoms, or incongruence should be interpreted as inaccurate with my clinical impression. Related Data Home Medications ?Medication ?Instructions ?Recorded ?Confirmed tizanidine 4 mg capsule (Zanaflex) 4 mg PO TIDP PRN Muscle Spasm 02/22/20 01/13/25 nebivolol 5 mg tablet 5 mg PO DAILY 12/21/21 01/13/25 albuterol sulfate 90 mcg/actuation 2 puff inhalation Q4HP PRN 12/28/21 01/13/25 aerosol inhaler (ProAir HFA) Shortness Of Breath promethazine 25 mg tablet 12.5 mg PO Q4HP PRN Nausea 03/30/22 01/13/25 spironolactone 50 mg tablet 50 mg PO DAILY 03/30/22 01/13/25 (Aldactone) omeprazole 20 mg capsule,delayed 20 mg PO DAILY 04/24/22 01/13/25 release bumetanide 2 mg tablet 2 mg PO BID 03/04/23 01/13/25 sacubitril 24 mg-valsartan 26 mg 1 tab PO BID 03/04/23 01/13/25 tablet (Entresto) cetirizine 10 mg tablet (Zyrtec) 10 mg PO DAILY 02/06/24 01/13/25 ipratropium 0.5 mg-albuterol 3 mg 3 ml inhalation QID 02/06/24 01/13/25 (2.5 mg base)/3 mL nebulization soln Previous Rx's ?Medication ?Instructions ?Recorded empagliflozin 25 mg tablet 25 mg PO DAILY #90 tabs 07/23/24 metformin 500 mg tablet See Rx Instructions .Route 07/28/24 .COMPLEX #180 tabs ondansetron HCl 4 mg tablet See Rx Instructions .Route 08/05/24 .COMPLEX #30 tabs blood sugar diagnostic (OneTouch #300 ea 09/02/24 Verio test strips) ibuprofen 800 mg tablet See Rx Instructions .Route 10/02/24 .COMPLEX #90 tabs cholecalciferol (vitamin D3) 125 5,000 unit PO .QOD #90 caps 10/07/24 mcg (5,000 unit) capsule methenamine hippurate 1 gram tablet 1 g PO BID #60 tabs 10/07/24 montelukast 10 mg tablet See Rx Instructions .Route 10/29/24 .COMPLEX #90 tabs phenazopyridine 200 mg tablet 200 mg PO TID PRN Pain on 10/29/24 urination #30 tabs ascorbic acid (vitamin C) 500 mg See Rx Instructions .Route 10/30/24 tablet (Vitamin C) .COMPLEX #60 tabs nitroglycerin 0.4 mg sublingual 0.4 mg sublingual Q5M #30 tabs 10/30/24 tablet pravastatin 40 mg tablet 40 mg PO HS #90 tabs 11/11/24 fluticasone fur. 100 mcg-umeclid See Rx Instructions .Route 11/27/24 62.5 mcg-vilant 25 mcg .COMPLEX #60 blisters inhalat.powder (Trelegy Ellipta) oxybutynin chloride 5 mg tablet 5 mg PO BID PRN bladder spasms #60 12/01/24 tabs tirzepatide 2.5 mg/0.5 mL 2.5 mg (0.5 mL) SQ WEEKLY #2.5 mL 12/15/24 subcutaneous pen injector tramadol 50 mg tablet 50 mg PO Q6H PRN pain #120 tabs 01/01/25 acetaminophen 300 mg-codeine 30 mg 1 tab PO Q6H PRN cough #30 tabs 01/08/25 tablet Allergies Allergy/AdvReac Type Severity Reaction Status Date / Time aspirin Allergy Severe S-DIFF. Verified 01/13/25 14:35 BREATHING bee venom protein (honey bee) Allergy Severe Anaphylaxis Verified 01/13/25 14:35 Bleach (Sodium Hypochlorite) Allergy Severe diff. Verified 01/13/25 14:35 breathing, dizzy amoxicillin (From Augmentin) Allergy Mild Unknown Verified 01/13/25 14:35 allergy reaction clavulanic acid (From Allergy Mild Unknown Verified 01/13/25 14:35 Augmentin) allergy reaction fluconazole (From Diflucan) Allergy Mild Unknown Verified 01/13/25 14:35 allergy reaction levofloxacin (From Levaquin) Allergy Difficulty Verified 01/13/25 14:35 Breathing pneumococcal vaccine Allergy Unknown Verified 01/13/25 14:35 allergy reaction sulfamethoxazole (From Allergy Unknown Verified 01/13/25 14:35 Bactrim) allergy reaction trimethoprim (From Bactrim) Allergy Unknown Verified 01/13/25 14:35 allergy reaction sucralose (From SUCRALOSE AdvReac Severe breathing Verified 01/13/25 14:35 (FOOD/DRUG)) problems PFSH [facility] Disclaimer: The information contained in this section may have been updated after the patient was seen, as this information can be updated by other users. Medical History Ovarian cyst Hematuria Vaginal pruritus History of nephrolithotomy with removal of calculi Hyperparathyroidism Multiple thyroid nodules Asthma with exacerbation Syncopal episodes POSSIBLY DUE TO POTS Right flank pain Adnexal mass Septic shock Severe sepsis with acute organ dysfunction Cellulitis of right wrist Pneumonia Syncope Altered mental status Surgical History History of cardiac catheterization x2 History of loop recorder History of eye surgery History of cholecystectomy S/P right oophorectomy S/P hysterectomy History of tubal ligation Family History Other Alzheimer disease Bipolar 1 disorder Dementia Family history of diabetes mellitus type II Family history of myocardial infarction Lung cancer Lupus Social History Smoking Status: Unknown if ever smoked second hand exposure: No alcohol intake: never substance use type: denies use current occupational status: unemployed and disabled Travel in the last 8 weeks: None household members: spouse housing: house current occupational exposures/hazards: No caffeine: Yes Have you lived/traveled outside [place] in past 30 days?: No Contact w/someone who lives/traveled outside [place] past 30 days?: No Exposure to someone with infectious disease in past 14 days?: No Do you have a fever (greater than 100.4 F or 38 C)?: No Have you tested positive for COVID-19: No Exposed to someone with COVID-19 in past 14 days?: No Do you have a sore throat?: No Do you have a cough?: No Do you have any weakness?: No Do you have any diarrhea?: No Are you experiencing any unusual bleeding?: No Do you have any muscle aches/pain?: No Do you have any abdominal pain?: No Are you experiencing loss of taste or smell?: No Other Medical History Have you received the Flu Vaccine for this season: No Have you received the Pneumonia Vaccine: Yes ROS Obtained: Yes Systems reviewed as appropriate & no additional complaints except as documented Physical Exam General General appearance: alert and in no apparent distress Head Head exam: atraumatic and normocephalic Eye Eye exam: Present PERRL and EOMI ENT ENT exam: Present mucous membranes moist Neck Neck exam: Present normal inspection Chest Chest inspection: Present normal inspection and symmetric chest wall rise Respiratory Respiratory exam: Present normal lung sounds bilaterally; Absent respiratory distress Cardiovascular Cardiovascular exam: Present regular rate and normal rhythm Abdominal Exam Abdominal exam: Present soft; Absent tenderness, guarding, rebound or rigidity Extremities Exam Extremities exam: Present normal inspection Neurological Exam Neurological exam: Present alert Psychiatric Psychiatric exam: Present normal affect Skin Skin exam: Present warm and dry Medical Decision Making Medical Records Screening: Per USPSTF and CDC recommendations, given the prevalence of disease in our region, it is our hospital?s policy to screen for HIV and viral Hepatitis for all patients aged 18 and over and those with ongoing risk factors. Harjinder Inquiry Pt receiving controlled substance: No Vital Signs: 01/27/25 18:04 01/27/25 18:32 Temperature 97.4 F L Temperature Source Oral Pulse Rate 85 Pulse Rate [Right] 69 Respiratory Rate 16 Blood Pressure 139/76 Blood Pressure [Right Arm] 161/101 H Blood Pressure Mean [Right Arm] 121 Blood Pressure Source [Right Arm] Automatic Cuff Blood Pressure Position [Right Arm] Sitting 02 Sat by Pulse Oximetry 96 98 Oxygen Delivery Method Room Air Lab Data Lab Results 01/27/25 18:20: WBC 16.9 H, RBC 5.73 H, Hgb 16.2, Hct 49.6 H, MCV 86.6, MCH 28.3, MCHC 32.7, RDW 13.7, Plt Count 326, MPV 9.9, Neut % (Auto) 79.3, Lymph % (Auto) 14.4, Collin % (Auto) 5.3, Eos % (Auto) 0.1, Baso % (Auto) 0.4, Neut # (Auto) 13.4 H, Lymph # (Auto) 2.4, Collin # (Auto) 0.9, Eos # (Auto) 0.0, Baso # (Auto) 0.1, Total Counted 100, Neutrophils % (Manual) 86 H, Lymphocytes % (Manual) 9 L, Monocytes % (Manual) 4, Basophils % (Manual) 1.0, Platelet Estimate Normal, RBC Morphology Normal, Sodium 137, Potassium 4.7, Chloride 99, Carbon Dioxide 29, Anion Gap 13.7, BUN 10, Creatinine 0.70, Estimated Creat Clear 79, Estimated GFR 88, Est GFR ( Amer) 107, Glucose 156 H, Calcium 10.3 H, Total Bilirubin 0.6, AST 44 H, ALT 74, Alkaline Phosphatase 112, Total Protein 7.5, Albumin 4.3, Globulin 3.2, Albumin/Globulin Ratio 1.3, Lipase 74 01/27/25 18:38: Urine Color [place], Urine Appearance Cloudy, Urine pH 6.5, Ur Specific [place] 1.020, Urine Protein 3+ A, Urine Glucose (UA) 1+, Urine Ketones Trace, Urine Blood 1+ A, Urine Nitrate Positive A, Urine Bilirubin 1+ A, Urine Urobilinogen 4.0, Ur Leukocyte Esterase 2+ A, Urine RBC 3-5, Urine WBC 50-100, Ur Squamous Epith Cells 5-10, Urine Bacteria 3+ 01/27/25 18:20 01/27/25 18:20 Orders (Tests/Meds): ED MEDICATIONS Discontinued Medications Generic Name Dose Route Start Last Admin Trade Name Freq PRN Reason Stop Dose Admin Acetaminophen 1,000 mg 01/27/25 18:44 01/27/25 19:24 Acetaminophen 1,000mg/100ml Vial IV 01/27/25 18:45 1,000 mg ONCE ONE Administration Lactated Ringer's 1,000 mls @ 999 mls/hr 01/27/25 18:44 01/27/25 19:24 Lactated Ringer's 1000 Ml Bag IV 01/27/25 19:44 999 mls/hr .Q1H1M ONE Administration Ceftriaxone Sodium 1 gm/ 50 mls @ 100 mls/hr 01/27/25 20:00 01/27/25 20:11 Sodium Chloride IV 01/27/25 20:29 Not Given ONCE ONE Ertapenem 1 gm/ Sodium 50 mls @ 100 mls/hr 01/27/25 20:15 01/27/25 20:22 Chloride IV 01/27/25 20:44 100 mls/hr ONCE ONE Administration Ketorolac Tromethamine 30 mg 01/27/25 18:44 01/27/25 19:24 Ketorolac 30mg/Ml Vial IV 01/27/25 18:45 30 mg ONCE ONE Administration Ondansetron HCl 4 mg 01/27/25 18:44 01/27/25 19:24 Ondansetron 4mg/2ml Vial IV 01/27/25 18:45 4 mg ONCE ONE Administration Promethazine HCl 25 mg 01/27/25 20:15 01/27/25 20:22 Promethazine Hcl 25mg/Ml 1ml Vial IV 01/27/25 20:16 25 mg ONCE ONE Administration Sodium Chloride 25 ml 01/27/25 20:15 01/27/25 20:22 Sodium Chloride 0.9% 25ml Bag IV 01/27/25 20:16 25 ml ONCE ONE Administration ORDERS Category Date Time Status CT abdomen pelvis wo con Stat Cat Scan 01/27/25 18:44 Completed Complete Blood Count Auto Diff Stat Lab 01/27/25 18:20 Completed Comprehensive Metabolic Panel Stat Lab 01/27/25 18:20 Completed Lipase Stat Lab 01/27/25 18:20 Completed Urinalysis and Microscopic Stat Lab 01/27/25 18:38 Completed Blood Culture Stat Micro 01/27/25 20:40 Received Urine Culture Stat Micro 01/27/25 18:38 Received Medical Decision Narrative: In summary patient is a 49-year-old female past medical history described above who presents emergency department for evaluation of left-sided flank pain. Patient is hemodynamically stable nontoxic-appearing upon arrival, afebrile, appearing in pain. Differential includes ureterolithiasis, ureteritis, urinary tract infection, radicular pain, among others. Workup will be conducted with hematologic labs, urinalysis, CT imaging. Initial interventions include crystalloid bolus, Zofran, multimodal pain control. Initial hematologic labs reviewed by me, leukocytosis of 16.9, no significant anemia, no HERNAN or critical electrolyte abnormality lipase normal. Urinalysis interpreted by me and consistent with significant infection for which ertapenem will be given given her history of multidrug-resistant organisms. CT imaging informally visualized by me, large stone in the left kidney, formal read staghorn stone. The case is discussed with [facility] Dr. Dykes, given that patient is not critically ill preference would be to treat with appropriate IV antibiotics and remove staghorn stone on an outpatient basis. Given this the case discussed with hospital medicine will meet patient to service for continued evaluation at this time. Critical Care Critical Care Time Critical Care Time: No
[2025-01-27 18:46] LABS: Albumin Level 4.3 g/dl (3.5-5.0); Chloride 99 mmol/L (98-107); Sodium 137 mmol/L (136-145)
[2025-01-27 18:47] LABS: Potassium 4.7 mmoL/L (3.5-5.1)
[2025-01-27 18:47] LABS: Microscopic, Urine URINE MICROSCOPIC (MICROSCOPIC)
[2025-01-27 18:49] LABS: Blood, Urine 1+ (Negative); Glucose,Urine (UA) 1+ (Negative); Ketones,Urine TRACE (Negative); Leukocyte Esterase,Urine 2+ (Negative); Nitrate,Urine POSITIVE (Negative); PH,Urine 6.5 (5.0-8.5); Protein,Urine 3+ (Negative)
[2025-01-27 18:49] LABS: Alanine Aminotransferase 74 U/L (12-78); Albumin/Globulin Ratio 1.3 (1.1-1.8); Alkaline Phosphatase 112 U/L (38-126); Anion Gap 13.7 mEq/L (5-15); Aspartate Amino Transferase 44 U/L (14-36); Bilirubin,Total 0.6 mg/dl (0.2-1.3); Blood Urea Nitrogen 10 mg/dl (7-17); Carbon Dioxide 29 mmol/L (22.0-30.0); Creatinine Clearance Estimated 79 mL/min (50-200); Estimated Glomerular Filt Rate 88 ml/min (>60); GFR (African American) 107 ML/MIN (>60); Globulin 3.2 g/dL (1.3-3.2); Lipase 74 U/L (23-300); Total Protein,Serum 7.5 g/dl (6.3-8.2)
[2025-01-27 18:50] LABS: Calcium 10.3 mg/dl (8.4-10.2); Glucose 156 mg/dl (74-100)
[2025-01-27 18:56] LABS: Bilirubin,Urine 1+ (Negative)
[2025-01-27 18:57] LABS: Appearance,Urine Cloudy (Clear); Color,Urine Orange (Yellow)
[2025-01-27 19:04] LABS: Lymphocytes % 9 % (10-50); Monocytes % 4 % (2-9); Neutrophils % 86 % (42-76); Platelet Estimate Normal; RBC Morphology Normal; Total Cells Counted 100
[2025-01-27] MEDS: LACTATED RINGERS 1000ML 1,000 ML 999 ML IV (19:24)
[2025-01-27] MEDS: ONDANSETRON 4MG/2ML VIAL 4 MG IV (19:24)
[2025-01-27] MEDS: ACETAMINOPHEN 1,000MG/100ML VIAL 1000 MG IV (19:24)
[2025-01-27] MEDS: KETOROLAC 30MG/ML VIAL 30 MG IV (19:24)
[2025-01-27 19:25] LABS: Bacteria,Urine 3+ /lpf; WBC,Urine 50-100 #/hpf (0-3)
[2025-01-27] MEDS: SODIUM CHLORIDE 0.9% 25ML BAG 25 ML IV (20:22)
[2025-01-27] MEDS: PROMETHAZINE HCL 25MG/ML 1ML VIAL 25 MG IV (20:22)
[2025-01-27] MEDS: ERTAPENEM SODIUM 1 GM in 0.9 % SODIUM CHLORIDE 50 ML IV (20:22)
--- NOTE | 2025-01-27 20:24 | PC.NURSE ---
Spoke with [facility], they will be giving us a call back as soon as they have a urologist on the phone.
--- NOTE | 2025-01-27 20:59 | PC.NURSE ---
2 sets of blood cultures drawn and sent to lab
--- NOTE | 2025-01-27 21:07 | PC.NURSE ---
[facility] quality control technician notified of admission
[2025-01-27 21:19] VITALS: PULSE 66; RESP 17; O2SAT 95
--- NOTE | 2025-01-27 21:58 | PC.NURSE ---
Report called to Jessica DANIEL Pt transported to floor via wheelchair with IV
--- NOTE | 2025-01-27 22:10 | PC.NURSE ---
patient arrived to floor via wheelchair from ed at 22:09.
--- NOTE | 2025-01-27 22:14 | EXP.HP ---
History of Present Illness *Admission Date: 01/27/25 *Reason for visit:: Left flank pain *History of present illness: This is a 49-year-old female with a past medical history of recurrent kidney stones, hyperparathyroidism, diastolic heart failure, obesity, COPD, hypertension, DM 2 who presents emergency department today with complaints of left flank pain. She reports feeling generally unwell over the last several days with increased nausea and left flank pain. States she has a history of kidney stones with multiple surgeries in the past. States she developed left flank pain and nausea that started yesterday. Has had multiple hospitalizations for MDRO positive urines. States that she knows that she she will need a procedure soon for her known staghorn calculus of her left kidney. Denies fever. Emergency department workup notable for white blood count of 16, urine positive nitrite, +2 leuk esterase, white blood cells and bacteria. CT abdomen notable for large staghorn calculus of the left kidney measuring up to 3.8 cm which is increased in size from previous. No hydronephrosis. No other obstructing uropathy. ED provider spoke with urology at [facility] and states that she needs control of her acute infection with outpatient procedure for staghorn calculi in the near future. Prior culture data sensitive to ertapenem. Will continue on admission. Patient reports that she routinely gets ertapenem in the hospital with improvement of symptoms. Given this, she is admitted to the hospitalist service at this time. [facility] Disclaimer: The information contained in this section may have been updated after the patient was seen, as this information can be updated by other users. Medical History Ovarian cyst Hematuria Vaginal pruritus History of nephrolithotomy with removal of calculi Hyperparathyroidism Multiple thyroid nodules Asthma with exacerbation Syncopal episodes POSSIBLY DUE TO POTS Right flank pain Adnexal mass Septic shock Severe sepsis with acute organ dysfunction Cellulitis of right wrist Pneumonia Syncope Altered mental status Surgical History History of cardiac catheterization x2 History of loop recorder History of eye surgery History of cholecystectomy S/P right oophorectomy S/P hysterectomy History of tubal ligation Family History Other Alzheimer disease Bipolar 1 disorder Dementia Family history of diabetes mellitus type II Family history of myocardial infarction Lung cancer Lupus Social History (Updated 01/27/25 @ 22:37 by Jessica Tuttle RN) Smoking Status: Never smoker second hand exposure: No alcohol intake: never substance use type: denies use current occupational status: unemployed and disabled Travel in the last 8 weeks: None household members: spouse housing: house current occupational exposures/hazards: No caffeine: Yes Have you lived/traveled outside [place] in past 30 days?: No Contact w/someone who lives/traveled outside US past 30 days?: No Exposure to someone with infectious disease in past 14 days?: No Do you have a fever (greater than 100.4 F or 38 C)?: No Have you tested positive for COVID-19: No Exposed to someone with COVID-19 in past 14 days?: No Do you have a sore throat?: No Do you have a cough?: No Do you have any weakness?: No Do you have any diarrhea?: No Are you experiencing any unusual bleeding?: No Do you have any muscle aches/pain?: No Do you have any abdominal pain?: No Are you experiencing loss of taste or smell?: No Other Medical History Have you received the Flu Vaccine for this season: No Have you received the Pneumonia Vaccine: Yes Review of Systems Review of Systems Review of systems:: pertinent systems reviewed and negative unless documented below Review of systems (narrative): Negative except for HPI Meds Home Medications and Allergies Home Medications ?Medication ?Instructions ?Recorded ?Confirmed ?Type nebivolol 5 mg tablet 5 mg PO DAILY 12/21/21 01/27/25 History albuterol sulfate 90 mcg/actuation 2 puff inhalation Q4HP PRN 12/28/21 01/27/25 History aerosol inhaler (ProAir HFA) Shortness Of Breath spironolactone 50 mg tablet 50 mg PO DAILY 03/30/22 01/27/25 History (Aldactone) omeprazole 20 mg capsule,delayed 20 mg PO DAILY 04/24/22 01/27/25 History release bumetanide 2 mg tablet 2 mg PO BID 03/04/23 01/27/25 History sacubitril 24 mg-valsartan 26 mg 1 tab PO BID 03/04/23 01/27/25 History tablet (Entresto) cetirizine 10 mg tablet (Zyrtec) 10 mg PO DAILY 02/06/24 01/27/25 History empagliflozin 25 mg tablet 25 mg PO DAILY #90 tabs 07/23/24 01/27/25 Rx blood sugar diagnostic (OneTouch #300 ea 09/02/24 01/27/25 Rx Verio test strips) methenamine hippurate 1 gram tablet 1 g PO BID #60 tabs 10/07/24 01/27/25 Rx pravastatin 40 mg tablet 40 mg PO HS #90 tabs 11/11/24 01/27/25 Rx oxybutynin chloride 5 mg tablet 5 mg PO BID PRN bladder spasms #60 12/01/24 01/27/25 Rx tabs tramadol 50 mg tablet 50 mg PO Q6H PRN pain #120 tabs 01/01/25 01/27/25 Rx ascorbic acid (vitamin C) 500 mg 500 mg PO BID 01/27/25 01/27/25 History tablet (Vitamin C) cholecalciferol (vitamin D3) 125 5,000 unit PO Q48H 01/27/25 01/28/25 History mcg (5,000 unit) capsule ibuprofen 800 mg tablet 800 mg PO TID PRN Pain 01/27/25 01/27/25 History metformin 500 mg tablet 500 mg PO BID 01/27/25 01/27/25 History montelukast 10 mg tablet 10 mg PO HS 01/27/25 01/27/25 History tirzepatide 2.5 mg/0.5 mL 2.5 mg SQ WEEKLY 01/28/25 01/27/25 History subcutaneous pen injector (Fadi) New Prescriptions to Start Prescriptions: Allergies Allergy/AdvReac Type Severity Reaction Status Date / Time aspirin Allergy Severe S-DIFF. Verified 01/13/25 14:35 BREATHING bee venom protein (honey bee) Allergy Severe Anaphylaxis Verified 01/13/25 14:35 Bleach (Sodium Hypochlorite) Allergy Severe diff. Verified 01/13/25 14:35 breathing, dizzy amoxicillin (From Augmentin) Allergy Mild Unknown Verified 01/13/25 14:35 allergy reaction clavulanic acid (From Allergy Mild Unknown Verified 01/13/25 14:35 Augmentin) allergy reaction fluconazole (From Diflucan) Allergy Mild Unknown Verified 01/13/25 14:35 allergy reaction levofloxacin (From Levaquin) Allergy Difficulty Verified 01/13/25 14:35 Breathing pneumococcal vaccine Allergy Unknown Verified 01/13/25 14:35 allergy reaction sulfamethoxazole (From Allergy Unknown Verified 01/13/25 14:35 Bactrim) allergy reaction trimethoprim (From Bactrim) Allergy Unknown Verified 01/13/25 14:35 allergy reaction sucralose (From SUCRALOSE AdvReac Severe breathing Verified 01/13/25 14:35 (FOOD/DRUG)) problems Exam Data for Last 24 hours Vital signs and Labs for Last 24 Hours: Temp Pulse Resp BP Pulse Ox O2 Del Method 97.4 F L 85 16 139/76 98 Room Air 01/27/25 18:04 01/27/25 18:32 01/27/25 18:04 01/27/25 18:32 01/27/25 18:32 01/27/25 18:04 Laboratory Results - last 24 hr 01/27/25 18:20: WBC 16.9 H, RBC 5.73 H, Hgb 16.2, Hct 49.6 H, MCV 86.6, MCH 28.3, MCHC 32.7, RDW 13.7, Plt Count 326, MPV 9.9, Neut % (Auto) 79.3, Lymph % (Auto) 14.4, [place] % (Auto) 5.3, Eos % (Auto) 0.1, Baso % (Auto) 0.4, Neut # (Auto) 13.4 H, Lymph # (Auto) 2.4, [place] # (Auto) 0.9, Eos # (Auto) 0.0, Baso # (Auto) 0.1, Total Counted 100, Neutrophils % (Manual) 86 H, Lymphocytes % (Manual) 9 L, Monocytes % (Manual) 4, Basophils % (Manual) 1.0, Platelet Estimate Normal, RBC Morphology Normal, Sodium 137, Potassium 4.7, Chloride 99, Carbon Dioxide 29, Anion Gap 13.7, BUN 10, Creatinine 0.70, Estimated Creat Clear 79, Estimated GFR 88, Est GFR ( Amer) 107, Glucose 156 H, Calcium 10.3 H, Total Bilirubin 0.6, AST 44 H, ALT 74, Alkaline Phosphatase 112, Total Protein 7.5, Albumin 4.3, Globulin 3.2, Albumin/Globulin Ratio 1.3, Lipase 74 01/27/25 18:38: Urine Color [place], Urine Appearance Cloudy, Urine pH 6.5, Ur Specific [place] 1.020, Urine Protein 3+ A, Urine Glucose (UA) 1+, Urine Ketones Trace, Urine Blood 1+ A, Urine Nitrate Positive A, Urine Bilirubin 1+ A, Urine Urobilinogen 4.0, Ur Leukocyte Esterase 2+ A, Urine RBC 3-5, Urine WBC 50-100, Ur Squamous Epith Cells 5-10, Urine Bacteria 3+ I & O for Last 24 hours: Intake & Output 01/24/25 01/25/25 01/26/25 01/27/25 23:59 23:59 23:59 23:59 Weight 131.542 kg Constitutional Constitutional: no acute distress *Routine HEENT Exam Head: Present normocephalic Eye: Present EOMI and PERRL ENT: Present mucous membranes moist *Routine Neck Exam Neck: Present supple; Absent lymphadenopathy *Routine Respiratory Exam Respiratory: Present CTA bilaterally *Routine Cardiovascular Exam Cardiovascular: Present RRR *Routine Abdominal Exam Abdominal: Present soft and normoactive bowel sounds; Absent tenderness *Routine Rectal Exam Rectal:: deferred *Routine Genitalia Exam Genitalia:: deferred *Routine Extremities Exam Extremities: Absent cyanosis, clubbing or edema *Routine Skin Exam Skin: Present warm; Absent rash *Routine Neurological Exam Neurological: Present alert and oriented X3 Assessment and Plan *Assessment and plan (1) Staghorn calculus: Status: Acute Category: Medical Code(s): N20.0 - Calculus of kidney (2) Pyelonephritis: Status: Acute Category: Medical Code(s): N12 - Tubulo-interstitial nephritis, not specified as acute or chronic (3) Type 2 diabetes mellitus without complications: Status: Chronic Category: Medical Code(s): E11.9 - Type 2 diabetes mellitus without complications (4) Acute cystitis: Status: Acute Category: Medical Code(s): N30.00 - Acute cystitis without hematuria (5) Chronic diastolic (congestive) heart failure: Status: Chronic Category: Medical Code(s): I50.32 - Chronic diastolic (congestive) heart failure (6) Morbid obesity: Status: Chronic Category: Medical Code(s): E66.01 - Morbid (severe) obesity due to excess calories Plan Presented with left flank pain, chills, nausea. Found to have pyelonephritis related to infected kidney stone. Discussed case with ER physician, request admission for further management and antibiotics. Patient has history of multidrug-resistant organisms. Medicine decided to admit for further management. Necessitating inpatient care due to complexity of previous infections, infection related to staghorn calculi, and high risk for decompensation. Problems addressed as follows: #Acute pyelonephritis secondary to staghorn calculi # Multidrug-resistant infectioni Prior history of MDRO treated with ertapenem per IM. Will continue ertapenem now given prior culture data sensitive. Urinalysis positive for bacteria pyuria leuk esterase and nitrites Multimodal pain medication for left flank pain Will need outpatient urology referral and follow-up for extraction of staghorn calculi #Morbid obesity Complicates all aspects of care #Chronic diastolic heart failure Not in exacerbation at this time. Denies any worsening edema or shortness of breath. Continue daily Bumex #DM2 Hold metformin in the acute setting. Initiate sliding scale insulin. Patiently recently started on Mounjaro. Reports next injection is Saturday. If in the hospital, would like to continue her dosing from home. #COPD Not in exacerbation at this time, continue bronchodilators.
[2025-01-27 22:16] VITALS: BP 134/78; PULSE 89; RESP 20; TEMP 36.9; O2SAT 97
[2025-01-27 22:25] VITALS: BP 147/94; PULSE 59; RESP 17; TEMP 37.1; O2SAT 95; BMI 51.6
[2025-01-27] MEDS: OXYCODONE 7.5MG W/APAP 325MG TABLET 1 EACH PO (22:50)
[2025-01-27 23:50] VITALS: BP 130/78; PULSE 64; RESP 16; TEMP 36.9; O2SAT 98
[2025-01-28] MEDS: ONDANSETRON 4MG/2ML VIAL 4 MG IV ×3 (00:40→12:43)
[2025-01-28] MEDS: ACETAMINOPHEN 325MG TAB 650 MG PO (00:40)
[2025-01-28 04:00] VITALS: BP 137/75; PULSE 64; RESP 17; TEMP 36.9; O2SAT 96; BMI 51.6
[2025-01-28] MEDS: OXYCODONE 7.5MG W/APAP 325MG TABLET 1 EACH PO ×4 (04:00→23:40)
--- NOTE | 2025-01-28 04:25 | PC.NURSE ---
Ms Lissy Valdez was newly admitted on behalf of a kidney (staghorn calculus) stone. She has a noted medical history of recurrent UTIs and kidney stones. Patient has complained of left-sided flank pain and nausea this shift. Percocet 7.5 and Zofran were administered per MAR for pain control and nausea relief. Admission assessments and home medication reconciliation were completed by me. SCDs are in place for VTE prophylaxis. Upon auscultation of her lungs, diminished sounds were heard. Auscultation of her heart and bowels were within normal findings. Patient reported upon assessment that she currently has orange urine due to taking [id number] AZO at home for urination discomfort. She ambulates independently with standby assistance due to her statement of having syncopal episodes from POTS. Patient verbalized the understanding of bed alarm and call light usage to alert staff for assistance, in the case of needing to get up from the bed to avoid any potential for falls. ACHS glucose checks initiated. At this time, the patient is resting in bed without any further complaints. No acute changes noted thus far. Call light within reach.
[2025-01-28 05:38] LABS: POC Glucose,Bedside 142 (70-110)
[2025-01-28 06:55] LABS: Basophils # 0.1 K/mm3 (0-0.2); Basophils % 0.3 % (0.1-2.0); Eosinophils # 0.1 K/mm3 (0.0-0.4); Eosinophils % 0.3 % (0.1-12.0); Hematocrit 46.1 % (37.0-47.0); Hemoglobin 14.8 g/dL (12.2-16.2); Lymphocytes # 2.7 K/mm3 (0.7-4.5); Lymphocytes % 18.6 % (10-50); Mean Corpuscular HGB Conc 32.1 g/dL (31.8-35.4); Mean Corpuscular Hemoglobin 28.2 pg (27.0-31.2); Mean Platelet Volume 10.2 fl (7.4-10.4); Monocytes % 6.9 % (1.7-9.3); Neutrophils # 10.7 K/mm3 (1.8-7.8); Neutrophils % 73.5 % (37.0-80.0); Platelet Count 287 K/mm3 (142-424); Red Blood Count 5.24 M/mm3 (4.20-5.40); Red Cell Distribution Width 13.9 % (11.5-17.5); White Blood Count 14.6 K/mm3 (4.8-10.8)
[2025-01-28 07:16] LABS: Chloride 102 mmol/L (98-107); Potassium 4.1 mmoL/L (3.5-5.1); Sodium 137 mmol/L (136-145)
[2025-01-28 07:18] LABS: Blood Urea Nitrogen 9 mg/dl (7-17); Creatinine Clearance Estimated 66 mL/min (50-200); Estimated Glomerular Filt Rate 76 ml/min (>60); GFR (African American) 92 ML/MIN (>60)
[2025-01-28 07:19] LABS: Anion Gap 12.1 mEq/L (5-15); Carbon Dioxide 27 mmol/L (22.0-30.0); Glucose 138 mg/dl (74-100)
[2025-01-28] MEDS: KETOROLAC 30MG/ML VIAL 30 MG IV ×2 (07:50→21:30)
[2025-01-28 08:00] VITALS: BP 132/75; PULSE 71; RESP 16; TEMP 37; O2SAT 94
--- NOTE | 2025-01-28 08:03 | HMH.PHAINT1 ---
Pharmacy Intervention Comments: HOME MEDICATION LIST VERIFIED USING LIST FROM OUTPATIENT PHARMACY
--- NOTE | 2025-01-28 09:49 | EXP.ACUTE.PN ---
Subjective *Date: 01/28/25 *Time: 17:38 Interval history: Still complaining of left flank pain. No fever today. Mild nausea, poor p.o. intake. Denies chest pain or shortness of breath. Medical Exam Vital signs and Labs for Last 24 Hours: Vital Signs Temp Pulse Pulse Resp BP BP Pulse Ox 01/28/25 09:00 01/28/25 08:00 01/28/25 08:00 98.6 F 71 16 132/75 94 L 01/28/25 06:35 01/28/25 05:00 01/28/25 04:00 98.4 F 64 17 137/75 96 01/28/25 03:00 01/27/25 23:50 98.4 F 64 16 130/78 98 01/27/25 23:00 01/27/25 22:25 98.8 F 59 L 17 147/94 H 95 01/27/25 22:16 98.4 F 89 20 134/78 01/27/25 21:19 66 17 95 01/27/25 18:32 85 139/76 98 01/27/25 18:04 97.4 F L 69 16 161/101 H 96 O2 Del Method O2 Flow Rate 01/28/25 09:00 Room Air 01/28/25 08:00 Room Air 01/28/25 08:00 Room Air 01/28/25 06:35 Room Air 01/28/25 05:00 Room Air 01/28/25 04:00 Room Air 01/28/25 03:00 Room Air 01/27/25 23:50 Nasal Cannula 2 01/27/25 23:00 Nasal Cannula 2 01/27/25 22:25 Room Air 01/27/25 22:16 Room Air 01/27/25 21:19 Room Air 01/27/25 18:32 01/27/25 18:04 Room Air Intake and Output 01/27/25 01/28/25 01/28/25 23:59 07:59 15:59 Intake Total 1337 / 1337 Output Total 0 / 0 Balance 1337 / 1337 Intake: Intake, Oral Amount 237 / 237 Infusion Intake 1100 / 1100 Ceftriaxone 1 gm 1 gm In 0.9 % 50 / 50 Sodium Chloride 50 ml @ 100 mls /hr IV ONCE ONE Rx#:[id number] Ertapenem Sodium 1 gm In 0.9 % 50 / 50 Sodium Chloride 50 ml @ 100 mls /hr IV ONCE ONE Rx#:[id number] Lactated Ringers 1000ML 1,000 1000 / 1000 ml @ 999 mls/hr IV .Q1H1M ONE Rx#:[id number] Output: Output, Urine Amount 0 / 0 Other: Number of Unmeasured Voids 1 Weight 132.131 kg 132.131 kg Patient Weight 01/28/25 23:59 Weight 132.131 kg Laboratory Results - last 24 hr 01/27/25 18:20: WBC 16.9 H, RBC 5.73 H, Hgb 16.2, Hct 49.6 H, MCV 86.6, MCH 28.3, MCHC 32.7, RDW 13.7, Plt Count 326, MPV 9.9, Neut % (Auto) 79.3, Lymph % (Auto) 14.4, [place] % (Auto) 5.3, Eos % (Auto) 0.1, Baso % (Auto) 0.4, Neut # (Auto) 13.4 H, Lymph # (Auto) 2.4, [place] # (Auto) 0.9, Eos # (Auto) 0.0, Baso # (Auto) 0.1, Total Counted 100, Neutrophils % (Manual) 86 H, Lymphocytes % (Manual) 9 L, Monocytes % (Manual) 4, Basophils % (Manual) 1.0, Platelet Estimate Normal, RBC Morphology Normal, Sodium 137, Potassium 4.7, Chloride 99, Carbon Dioxide 29, Anion Gap 13.7, BUN 10, Creatinine 0.70, Estimated Creat Clear 79, Estimated GFR 88, Est GFR ( Amer) 107, Glucose 156 H, Calcium 10.3 H, Total Bilirubin 0.6, AST 44 H, ALT 74, Alkaline Phosphatase 112, Total Protein 7.5, Albumin 4.3, Globulin 3.2, Albumin/Globulin Ratio 1.3, Lipase 74 01/27/25 18:38: Urine Color [place], Urine Appearance Cloudy, Urine pH 6.5, Ur Specific [place] 1.020, Urine Protein 3+ A, Urine Glucose (UA) 1+, Urine Ketones Trace, Urine Blood 1+ A, Urine Nitrate Positive A, Urine Bilirubin 1+ A, Urine Urobilinogen 4.0, Ur Leukocyte Esterase 2+ A, Urine RBC 3-5, Urine WBC 50-100, Ur Squamous Epith Cells 5-10, Urine Bacteria 3+ 01/28/25 05:31: POC Glucose 142 H 01/28/25 05:51: WBC 14.6 H, RBC 5.24, Hgb 14.8, Hct 46.1, MCV 88.0, MCH 28.2, MCHC 32.1, RDW 13.9, Plt Count 287, MPV 10.2, Neut % (Auto) 73.5, Lymph % (Auto) 18.6, [place] % (Auto) 6.9, Eos % (Auto) 0.3, Baso % (Auto) 0.3, Neut # (Auto) 10.7 H, Lymph # (Auto) 2.7, [place] # (Auto) 1.0, Eos # (Auto) 0.1, Baso # (Auto) 0.1, Sodium 137, Potassium 4.1, Chloride 102, Carbon Dioxide 27, Anion Gap 12.1, BUN 9, Creatinine 0.80, Estimated Creat Clear 66, Estimated GFR 76, Est GFR ( Amer) 92, Glucose 138 H, Calcium 10.0 I & O for Labs for Last 24 Hours: Intake & Output 01/25/25 01/26/25 01/27/25 01/28/25 23:59 23:59 23:59 23:59 Intake Total 1337 / 1337 Output Total 0 / 0 Balance 1337 / 1337 Weight 132.131 kg 132.131 kg Microbiology Reports for the Last 24 Hours: Microbiology 01/27/25 18:38 Urine,Clean Catch Urine Culture - Preliminary Constitutional: Present mild distress, morbidly obese, chronically ill appearing and cooperative Head: Present atraumatic and normocephalic ENT: Present normal exam Respiratory: Present normal respiratory effort; Absent rhonchi, wheezes or crackles Cardiac: Present Reg Rate and Rhythm GI: Present soft and normal bowel sounds; Absent distention or tenderness Comments:: Left-sided CVA tenderness to percussion Extremities: Present normal inspection and full ROM; Absent tenderness Skin: Present intact; Absent erythema Neuro: Present Grossly Intact, alert, awake, oriented x 3 and moves all extremities Assessment and Plan *Assessment and plan (1) Staghorn calculus: Status: Acute Category: Medical Code(s): N20.0 - Calculus of kidney (2) Pyelonephritis: Status: Acute Category: Medical Code(s): N12 - Tubulo-interstitial nephritis, not specified as acute or chronic (3) Type 2 diabetes mellitus without complications: Status: Chronic Category: Medical Code(s): E11.9 - Type 2 diabetes mellitus without complications (4) Acute cystitis: Status: Acute Category: Medical Code(s): N30.00 - Acute cystitis without hematuria (5) Chronic diastolic (congestive) heart failure: Status: Chronic Category: Medical Code(s): I50.32 - Chronic diastolic (congestive) heart failure (6) Morbid obesity: Status: Chronic Category: Medical Code(s): E66.01 - Morbid (severe) obesity due to excess calories Plan Presented with left flank pain, chills, nausea. Found to have pyelonephritis related to infected kidney stone. Discussed case with ER physician, request admission for further management and antibiotics. Patient has history of multidrug-resistant organisms. Medicine decided to admit for further management. Necessitating inpatient care due to complexity of previous infections, infection related to staghorn calculi, and high risk for decompensation. Awaiting speciation and sensitivity. Anticipate PICC line placement tomorrow. Problems addressed as follows: #Acute pyelonephritis secondary to staghorn calculi # Multidrug-resistant infectioni - Prior history of MDRO treated with ertapenem. Continue ertapenem 1 g daily IV. If blood cultures remain negative at 36 to 48 hours, will place PICC line to complete at least 10 days of therapy. -Urine and blood cultures remain negative at this time. - Urinalysis positive for bacteria pyuria leuk esterase and nitrites - White count improved from 16.9-14.6. Repeat CBC, CMP, magnesium ordered for the morning. Continue oxycodone 5 mg as needed every 4 hours for breakthrough pain. Monitor for toxicity. Continue Toradol 30 mg IV every 6 hours for renal colic. -Resume home oxybutynin 5 mg twice daily - Will need outpatient urology referral and follow-up for extraction of staghorn calculi -Kidney function normal with BUN 9, creatinine 0.8. Potassium 4.1. #Morbid obesity: complicates all aspects of care #Chronic diastolic heart failure Not in exacerbation at this time. Denies any worsening edema or shortness of breath. Continue daily Bumex #DM2 Hold metformin in the acute setting. Initiate sliding scale insulin. Patiently recently started on Mounjaro. Reports next injection is Saturday. If in the hospital, would like to continue her dosing from home. #COPD Not in exacerbation at this time, continue bronchodilators. Full code Diabetic diet
[2025-01-28 10:38] LABS: POC Glucose,Bedside 137 (70-110)
--- NOTE | 2025-01-28 11:59 | CARE MANAGER ---
Spoke with patient this morning regarding discharging planning needs. Patient will require IV antibiotics @ discharge, Ertapenem 1gm daily thru 02/05. She plans to come here for outpatient infusions.
[2025-01-28 12:00] VITALS: BP 128/74; PULSE 70; RESP 18; TEMP 36.7; O2SAT 94
[2025-01-28 15:40] VITALS: BP 134/78; PULSE 62; RESP 16; TEMP 36.6; O2SAT 91
[2025-01-28 17:10] LABS: POC Glucose,Bedside 113 (70-110)
--- NOTE | 2025-01-28 18:53 | PC.NURSE ---
Alert and oriented x4. she has made multiple c/o left flank pain and nausea today and has been medicated per MAR. Pt has been eating small amounts of each meal. Pt FSBS have all been WNL. Pt ambulating to and from bathroom with standby assist. at bedside. PT has no complaints at this time. Call light in reach.
[2025-01-28 20:00] VITALS: BP 119/70; PULSE 64; RESP 16; TEMP 37; O2SAT 64; O2SAT 94
[2025-01-28] MEDS: PANTOPRAZOLE 40MG TABLET 40 MG PO (20:33)
[2025-01-28] MEDS: CARVEDILOL 6.25MG TABLET 6.25 MG PO (20:33)
[2025-01-28] MEDS: ERTAPENEM SODIUM 1 GM in 0.9 % SODIUM CHLORIDE 50 ML IV (20:33)
[2025-01-28] MEDS: PRAVASTATIN 40MG TAB 40 MG PO (20:33)
[2025-01-28] MEDS: MONTELUKAST SODIUM 10MG TAB 10 MG PO (20:33)
[2025-01-28] MEDS: SACUBITRIL/VALSARTAN 24-26MG TABLET 1 EACH PO (20:33)
[2025-01-28 20:47] LABS: POC Glucose,Bedside 128 (70-110)
[2025-01-29] VITALS: BP 112/65; PULSE 61; RESP 16; TEMP 36.4; O2SAT 97
[2025-01-29] MEDS: ONDANSETRON 4MG/2ML VIAL 4 MG IV ×2 (01:30→07:56)
[2025-01-29] MEDS: KETOROLAC 30MG/ML VIAL 30 MG IV ×2 (03:30→09:38)
[2025-01-29 04:00] VITALS: BP 108/79; PULSE 72; RESP 16; TEMP 36.8; O2SAT 97; BMI 50.2
--- NOTE | 2025-01-29 04:02 | PC.NURSE ---
Patient is alert and oriented x4. Her visited her yesterday evening and later departed at bedtime. She was observed to have eyes closed, respirations even/unlabored, and no apparent distress for the majority of the night. She continues to complain of left flank and back pain. Her pain has been timely controlled at her discretion with Toradol and Percocet per DEC. She stated that keeping her pain under control has helped keep her nausea at bay. However, the patient had one unmeasured emesis episode this shift after consuming leftover cottage cheese; Zofran was administered per DEC for nausea/vomiting relief. Other scheduled medications were administered as appropriately per DEC. Auscultation of heart, lungs, and bowels unchanged from previous weight shifter. Drinking adequate fluids encouraged. A wheelchair has been utilized this shift per patient's request for transfers/ambulation. Vital signs remain stable. At this time, the patient is resting in bed without any further complaints. No new needs at this time. Call light within reach.
[2025-01-29 05:44] LABS: POC Glucose,Bedside 116 (70-110)
[2025-01-29 06:56] LABS: Basophils % 0.4 % (0.1-2.0); Eosinophils # 0.1 K/mm3 (0.0-0.4); Eosinophils % 1.2 % (0.1-12.0); Hematocrit 42.6 % (37.0-47.0); Hemoglobin 13.5 g/dL (12.2-16.2); Lymphocytes # 2.2 K/mm3 (0.7-4.5); Lymphocytes % 21.4 % (10-50); Mean Corpuscular HGB Conc 31.7 g/dL (31.8-35.4); Mean Corpuscular Volume 88.4 fl (81-99); Mean Platelet Volume 10.2 fl (7.4-10.4); Monocytes # 0.9 K/mm3 (0.1-1.0); Monocytes % 8.7 % (1.7-9.3); Neutrophils # 6.9 K/mm3 (1.8-7.8); Platelet Count 248 K/mm3 (142-424); Red Blood Count 4.82 M/mm3 (4.20-5.40); Red Cell Distribution Width 13.8 % (11.5-17.5); White Blood Count 10.1 K/mm3 (4.8-10.8)
[2025-01-29 07:04] LABS: Albumin Level 3.5 g/dl (3.5-5.0); Chloride 103 mmol/L (98-107); Potassium 3.7 mmoL/L (3.5-5.1); Sodium 138 mmol/L (136-145)
[2025-01-29 07:06] LABS: Alanine Aminotransferase 40 U/L (12-78); Blood Urea Nitrogen 11 mg/dl (7-17); Creatinine Clearance Estimated 82 mL/min (50-200); Estimated Glomerular Filt Rate 88 ml/min (>60); GFR (African American) 107 ML/MIN (>60)
[2025-01-29 07:07] LABS: Albumin/Globulin Ratio 1.3 (1.1-1.8); Alkaline Phosphatase 94 U/L (38-126); Anion Gap 8.7 mEq/L (5-15); Aspartate Amino Transferase 31 U/L (14-36); Bilirubin,Total 0.6 mg/dl (0.2-1.3); Calcium 9.9 mg/dl (8.4-10.2); Carbon Dioxide 30 mmol/L (22.0-30.0); Globulin 2.7 g/dL (1.3-3.2); Glucose 122 mg/dl (74-100); Magnesium 1.8 mg/dl (1.6-2.3); Total Protein,Serum 6.2 g/dl (6.3-8.2)
--- NOTE | 2025-01-29 07:40 | EXP.DC.SUM ---
General Admission date:: 01/27/25 Discharge date: 01/29/25 HPI HPI HPI: This is a 49-year-old female with a past medical history of recurrent kidney stones, hyperparathyroidism, diastolic heart failure, obesity, COPD, hypertension, DM 2 who presents emergency department today with complaints of left flank pain. She reports feeling generally unwell over the last several days with increased nausea and left flank pain. States she has a history of kidney stones with multiple surgeries in the past. States she developed left flank pain and nausea that started yesterday. Has had multiple hospitalizations for MDRO positive urines. States that she knows that she she will need a procedure soon for her known staghorn calculus of her left kidney. Denies fever. Emergency department workup notable for white blood count of 16, urine positive nitrite, +2 leuk esterase, white blood cells and bacteria. CT abdomen notable for large staghorn calculus of the left kidney measuring up to 3.8 cm which is increased in size from previous. No hydronephrosis. No other obstructing uropathy. ED provider spoke with urology at [facility] and states that she needs control of her acute infection with outpatient procedure for staghorn calculi in the near future. Prior culture data sensitive to ertapenem. Will continue on admission. Patient reports that she routinely gets ertapenem in the hospital with improvement of symptoms. Given this, she is admitted to the hospitalist service at this time. Hospital Course Hospital Course Hospital Course: 49-year-old female who presented with left flank pain, chills, nausea. Found to have pyelonephritis related to infected kidney stone. Discussed case with ER physician, request admission for further management and antibiotics. Patient has history of multidrug-resistant organisms. Medicine decided to admit for further management. Necessitating inpatient care due to complexity of previous infections, infection related to staghorn calculi, and high risk for decompensation. Patient remained hemodynamically stable during admission. White count normalized. No fever since admission. Midline placed on day of discharge. Will complete empiric course of antibiotics with ertapenem for 10 days. Referred to urology for definitive management of staghorn calculus. Problems addressed as follows: #Acute pyelonephritis secondary to staghorn calculi # Multidrug-resistant infectioni - Prior history of MDRO treated with ertapenem. Initiated on ertapenem 1 g daily. Blood cultures remain negative, urine culture growing gram-negative rods. Will continue to monitor speciation and sensitivity. Will base treatment off previous cultures and improvement clinically in patient's labs. White count normalized to 10 by day of discharge. Midline placed on day of discharge. Will complete antibiotics 1 g daily with ertapenem through 02/05. Okay to remove midline on day of last dose. Showing some improvement. Still has left flank pain but responding to pain medication. Resume her home oxybutynin 5 mg twice daily. Referred to urology as an outpatient for definitive management with removal of stone. Kidney function remained normal with BUN 11, creatinine 0.7 on day of discharge. #Morbid obesity: complicates all aspects of care #Chronic diastolic heart failure Not in exacerbation at this time. Denies any worsening edema or shortness of breath. Continue daily Bumex #DM2: Initiated on sliding scale insulin during admission. Resume metformin at discharge. Okay to resume home regimen with Mounjaro #COPD: Not in exacerbation at this time, continue bronchodilators. #RA #Chronic Pain Continue Motrin and Tramadol Exam Data for Last 24 hours Vital signs and Labs for Last 24 Hours: Temp Pulse Resp BP Pulse Ox O2 Del Method O2 Flow Rate 98.3 F 72 16 108/79 L 97 Room Air 2 01/29/25 04:00 01/29/25 04:00 01/29/25 04:00 01/29/25 04:00 01/29/25 04:00 01/29/25 06:30 01/27/25 23:50 Laboratory Results - last 24 hr 01/28/25 10:31: POC Glucose 137 H 01/28/25 16:57: POC Glucose 113 H 01/28/25 20:38: POC Glucose 128 H 01/29/25 05:36: POC Glucose 116 H 01/29/25 05:55: WBC 10.1 D, RBC 4.82, Hgb 13.5, Hct 42.6, MCV 88.4, MCH 28.0, MCHC 31.7 L, RDW 13.8, Plt Count 248, MPV 10.2, Neut % (Auto) 68.0, Lymph % (Auto) 21.4, Tucker % (Auto) 8.7, Eos % (Auto) 1.2, Baso % (Auto) 0.4, Neut # (Auto) 6.9, Lymph # (Auto) 2.2, Tucker # (Auto) 0.9, Eos # (Auto) 0.1, Baso # (Auto) 0.0, Sodium 138, Potassium 3.7, Chloride 103, Carbon Dioxide 30, Anion Gap 8.7, BUN 11, Creatinine 0.70, Estimated Creat Clear 82, Estimated GFR 88, Est GFR ( Amer) 107, Glucose 122 H, Calcium 9.9, Magnesium 1.8, Total Bilirubin 0.6, AST 31 D, ALT 40 D, Alkaline Phosphatase 94, Total Protein 6.2 L, Albumin 3.5 D, Globulin 2.7, Albumin/Globulin Ratio 1.3 I & O for Last 24 hours: Intake & Output 01/26/25 01/27/25 01/28/25 01/29/25 23:59 23:59 23:59 23:59 Intake Total 1966 272 / 272 Output Total 0 / 0 0 / 0 Balance 1966 272 / 272 Weight 132.131 kg 132.131 kg 133.385 kg Microbiology Reports for the Last 24 Hours: Microbiology 01/27/25 20:40 Blood Blood Culture - Preliminary NO GROWTH AFTER 24 HOURS 01/27/25 20:30 Blood Blood Culture - Preliminary NO GROWTH AFTER 24 HOURS 01/27/25 18:38 Urine,Clean Catch Urine Culture - Preliminary Constitutional Constitutional: no acute distress, morbidly obese, chronically ill appearing and cooperative *Routine HEENT Exam Head: Present normocephalic Eye: Present EOMI and PERRL ENT: Present mucous membranes moist *Routine Neck Exam Neck: Present supple; Absent lymphadenopathy *Routine Respiratory Exam Respiratory: Present CTA bilaterally; Absent rhonchi, wheezes or crackles *Routine Cardiovascular Exam Cardiovascular: Present RRR *Routine Abdominal Exam Abdominal: Present soft and normoactive bowel sounds; Absent tenderness *Routine Rectal Exam Patient deferred: visual exam *Routine Exam Patient deferred: external exam *Routine Extremities Exam Extremities: Absent cyanosis, clubbing or edema Routine Back/Spine/Pelvis Exam Back/Spine: Present CVA tenderness (mild on left) *Routine Skin Exam Skin: Present warm; Absent rash *Routine Neurological Exam Neurological: Present alert, oriented X3 and moving all extremities; Absent altered mental status Results Data Completed and Pending Labs on day of discharge: Labs from last 24 hours 01/29/25 01/29/2525 05:55 05:36 20:38 WBC 10.1 D RBC 4.82 Hgb 13.5 Hct 42.6 MCV 88.4 MCH 28.0 MCHC 31.7 L RDW 13.8 Plt Count 248 MPV 10.2 Neut % (Auto) 68.0 Lymph % (Auto) 21.4 Tucker % (Auto) 8.7 Eos % (Auto) 1.2 Baso % (Auto) 0.4 Neut # (Auto) 6.9 Lymph # (Auto) 2.2 Tucker # (Auto) 0.9 Eos # (Auto) 0.1 Baso # (Auto) 0.0 Sodium 138 Potassium 3.7 Chloride 103 Carbon Dioxide 30 Anion Gap 8.7 BUN 11 Creatinine 0.70 Estimated Creat Clear 82 Estimated GFR 88 Est GFR ( Amer) 107 Glucose 122 H POC Glucose 116 H 128 H Calcium 9.9 Magnesium 1.8 Total Bilirubin 0.6 AST 31 D ALT 40 D Alkaline Phosphatase 94 Total Protein 6.2 L Albumin 3.5 D Globulin 2.7 Albumin/Globulin Ratio 1.3 01/28/25 01/28/25 16:57 10:31 WBC RBC Hgb Hct MCV MCH MCHC RDW Plt Count MPV Neut % (Auto) Lymph % (Auto) Tucker % (Auto) Eos % (Auto) Baso % (Auto) Neut # (Auto) Lymph # (Auto) Tucker # (Auto) Eos # (Auto) Baso # (Auto) Sodium Potassium Chloride Carbon Dioxide Anion Gap BUN Creatinine Estimated Creat Clear Estimated GFR Est GFR ( Amer) Glucose POC Glucose 113 H 137 H Calcium Magnesium Total Bilirubin AST ALT Alkaline Phosphatase Total Protein Albumin Globulin Albumin/Globulin Ratio Preliminary micro results at discharge 01/27/25 20:40 Blood Culture - Preliminary Blood NO GROWTH AFTER 24 HOURS 01/27/25 20:30 Blood Culture - Preliminary Blood NO GROWTH AFTER 24 HOURS 01/27/25 18:38 Urine Culture - Preliminary Urine,Clean Catch DS: Diagnosis Discharge Diagnosis (1) Staghorn calculus: Status: Acute Code(s): N20.0 - Calculus of kidney (2) Pyelonephritis: Status: Acute Code(s): N12 - Tubulo-interstitial nephritis, not specified as acute or chronic (3) Type 2 diabetes mellitus without complications: Status: Chronic Code(s): E11.9 - Type 2 diabetes mellitus without complications (4) Acute cystitis: Status: Acute Code(s): N30.00 - Acute cystitis without hematuria (5) Chronic diastolic (congestive) heart failure: Status: Chronic Code(s): I50.32 - Chronic diastolic (congestive) heart failure (6) Morbid obesity: Status: Chronic Code(s): E66.01 - Morbid (severe) obesity due to excess calories Meds Home Medications and Allergies Home Medications ?Medication ?Instructions ?Recorded ?Confirmed ?Type nebivolol 5 mg tablet 5 mg PO DAILY 12/21/21 01/27/25 History albuterol sulfate 90 mcg/actuation 2 puff inhalation Q4HP PRN 12/28/21 01/27/25 History aerosol inhaler (ProAir HFA) Shortness Of Breath spironolactone 50 mg tablet 50 mg PO DAILY 03/30/22 01/27/25 History (Aldactone) omeprazole 20 mg capsule,delayed 20 mg PO DAILY 04/24/22 01/27/25 History release bumetanide 2 mg tablet 2 mg PO BID 03/04/23 01/27/25 History sacubitril 24 mg-valsartan 26 mg 1 tab PO BID 03/04/23 01/27/25 History tablet (Entresto) cetirizine 10 mg tablet (Zyrtec) 10 mg PO DAILY 02/06/24 01/27/25 History empagliflozin 25 mg tablet 25 mg PO DAILY #90 tabs 07/23/24 01/27/25 Rx blood sugar diagnostic (OneTouch #300 ea 09/02/24 01/27/25 Rx Verio test strips) methenamine hippurate 1 gram tablet 1 g PO BID #60 tabs 10/07/24 01/27/25 Rx pravastatin 40 mg tablet 40 mg PO HS #90 tabs 11/11/24 01/27/25 Rx oxybutynin chloride 5 mg tablet 5 mg PO BID PRN bladder spasms #60 12/01/24 01/27/25 Rx tabs tramadol 50 mg tablet 50 mg PO Q6H PRN pain #120 tabs 01/01/25 01/27/25 Rx ascorbic acid (vitamin C) 500 mg 500 mg PO BID 01/27/25 01/27/25 History tablet (Vitamin C) cholecalciferol (vitamin D3) 125 5,000 unit PO Q48H 01/27/25 01/28/25 History mcg (5,000 unit) capsule ibuprofen 800 mg tablet 800 mg PO TID PRN Pain 01/27/25 01/27/25 History metformin 500 mg tablet 500 mg PO BID 01/27/25 01/27/25 History montelukast 10 mg tablet 10 mg PO HS 01/27/25 01/27/25 History tirzepatide 2.5 mg/0.5 mL 2.5 mg SQ WEEKLY 01/28/25 01/27/25 History subcutaneous pen injector (Fadi) Ertapenem Sodium [Invanz 1gm Vial] 100 mls/hr IV Q24H 01/29/25 Rx 1 gm oxycodone-acetaminophen 5 mg-325 1 tab PO Q6H PRN pain #11 tabs 01/29/25 Rx mg tablet New Prescriptions to Start Prescriptions: oxycodone-acetaminophen Alexys Matias Ertapenem Sodium [Invanz 1gm Vial] 1 gm 0.9 % Sodium Chloride [Sod Chlor 0.9% 50mL bag] 50 ml 100 mls/hr IV Q24H Allergies Allergy/AdvReac Type Severity Reaction Status Date / Time aspirin Allergy Severe S-DIFF. Verified 01/13/25 14:35 BREATHING bee venom protein (honey bee) Allergy Severe Anaphylaxis Verified 01/13/25 14:35 Bleach (Sodium Hypochlorite) Allergy Severe diff. Verified 01/13/25 14:35 breathing, dizzy amoxicillin (From Augmentin) Allergy Mild Unknown Verified 01/13/25 14:35 allergy reaction clavulanic acid (From Allergy Mild Unknown Verified 01/13/25 14:35 Augmentin) allergy reaction fluconazole (From Diflucan) Allergy Mild Unknown Verified 01/13/25 14:35 allergy reaction levofloxacin (From Levaquin) Allergy Difficulty Verified 01/13/25 14:35 Breathing pneumococcal vaccine Allergy Unknown Verified 01/13/25 14:35 allergy reaction sulfamethoxazole (From Allergy Unknown Verified 01/13/25 14:35 Bactrim) allergy reaction trimethoprim (From Bactrim) Allergy Unknown Verified 01/13/25 14:35 allergy reaction sucralose (From SUCRALOSE AdvReac Severe breathing Verified 01/13/25 14:35 (FOOD/DRUG)) problems Discharge Plan Disposition Patient Disposition: Home, Self-Care Condition: Fair Follow up Plan Follow up with: Demarcus Ames MD [Referring] - 02/11/25 1:00 pm Juarez Griffin MD [Primary Care Provider] - 02/11/25 2:15 pm Prescriptions/Medication Reconciliation: New oxycodone-acetaminophen 5-325 mg tablet 1 tab PO Q6H PRN (Reason: pain) Qty: 11 0RF Ertapenem Sodium [Invanz 1gm Vial] 1 GM 0.9 % Sodium Chloride [Sod Chlor 0.9% 50mL bag] 50 ML 100 mls/hr IV Q24H Ordered By: Alexys Matias MD Last Taken: 01/29/25 10:59 100 mls/hr Continued spironolactone [Aldactone] 50 mg tablet 50 mg PO DAILY bumetanide 2 mg tablet 2 mg PO BID Entresto 24-26 mg tablet 1 tab PO BID (DME) OneTouch Verio test strips Strip See Rx Instructions .Route Qty: 300 1RF Rx Instructions: As directed methenamine hippurate 1 gram tablet 1 g PO BID Qty: 60 5RF albuterol sulfate [ProAir HFA] 90 mcg/actuation HFA aerosol inhaler 2 puff IH Q4HP PRN (Reason: Shortness Of Breath) omeprazole 20 mg capsule,delayed release(DR/EC) 20 mg PO DAILY empagliflozin 25 mg tablet 25 mg PO DAILY Qty: 90 1RF pravastatin 40 mg tablet 40 mg PO HS Qty: 90 1RF oxybutynin chloride 5 mg tablet 5 mg PO BID PRN (Reason: bladder spasms) Qty: 60 1RF tramadol 50 mg tablet 50 mg PO Q6H PRN (Reason: pain) Qty: 120 0RF metformin 500 mg tablet 500 mg PO BID Rx Instructions: TAKE ONE TABLET BY MOUTH TWICE DAILY ibuprofen 800 mg tablet 800 mg PO TID PRN (Reason: Pain) Rx Instructions: TAKE ONE TABLET BY MOUTH THREE TIMES DAILY NEEDED WITH FOOD ascorbic acid (vitamin C) [Vitamin C] 500 mg tablet 500 mg PO BID Rx Instructions: TAKE ONE TABLET BY MOUTH TWICE DAILY montelukast 10 mg tablet 10 mg PO HS Rx Instructions: TAKE ONE TABLET BY MOUTH EVERY DAY AT BEDTIME FOR ASTHMA cholecalciferol (vitamin D3) 125 mcg (5,000 unit) capsule 5,000 unit PO Q48H Mounjaro 2.5 mg/0.5 mL pen injector 2.5 mg SQ WEEKLY Rx Instructions: for 4 weeks nebivolol 5 MG tablet 5 mg PO DAILY cetirizine [Zyrtec] 10 mg Tablet 10 mg PO DAILY Problem Reconciliation Problems Reviewed?: Yes Patient Discharge Instructions ACTIVITY: Continue current activity DIET: continue same diet Patient Instructions: DI for Kidney Infection Print Language: Ukrainian Providers Primary Care Provider: Juarez Griffin Admit Provider: Alexys Matias Attending Provider: Alexys Matias
[2025-01-29] MEDS: OXYCODONE 7.5MG W/APAP 325MG TABLET 1 EACH PO (07:55)
[2025-01-29 08:00] VITALS: BP 129/75; PULSE 61; RESP 15; TEMP 36.8; O2SAT 95
[2025-01-29] MEDS: SACUBITRIL/VALSARTAN 24-26MG TABLET 1 EACH PO (09:09)
[2025-01-29] MEDS: CARVEDILOL 6.25MG TABLET 6.25 MG PO (09:09)
--- NOTE | 2025-01-29 10:25 | PC.NURSE ---
4 fr, 14 cm midline inserted in left upper arm using US guidance. Discussed with pt. risks and benefits of midline use.
[2025-01-29] MEDS: ERTAPENEM SODIUM 1 GM in 0.9 % SODIUM CHLORIDE 50 ML IV (10:59)
[2025-01-29 11:22] LABS: POC Glucose,Bedside 147 (70-110)
--- NOTE | 2025-02-01 11:33 | SW/DCPLANNER ---
Spoke with patient on the phone. Patient stated that she is doing okay. Patient stated that she was able to get her medicine picked up from clinic pharmacy. Patient stated that she is aware of her appointments and that she has to reschedule her appointment with her primary care provider. Patient stated that she has no concerns or questions at this time. Dayron Brower
--- OUTSIDE RECORDS SUMMARY | 2025-02-04 19:18 | XMS_ITS | Data Portability ---
Author Organization [facility] Alejandro ADMIN Address [address] [place] [id number] Care Team Providers Care Printed Products Assembler Name Role Phone ZAHRAA BENAVIDES Primary Care Provider Assessment Encounter Date Assessment Date Assessment LastModified by Organization Details LastModified Time 08/07/2023 08/07/[address] scan images onto our system. Will review to determine the degree of stone burden bilaterally in the kidneys. Will also plan cystoscopy and pelvic exam in the office in the near future. [email or web address] Not available 08/07/2023 15:34:46 09/25/2023 09/25/2023 I have personally reviewed the CT scan images and have gone over this data with the patient. Cystoscopy is negative today. Patient has other significant comorbidity that is ongoing currently. I have discussed with her possible treatment options for her stones which are currently asymptomatic but could be a potential source for symptoms, infection or bleeding. For now she would like to wait and survey unless she has more significant symptoms. With that being said she will return to clinic in 6 months with KUB. I have informed her that I will be leaving this practice in October and she is comfortable following with our nurse practitioner, Caroline Esquivel under new urologic supervision. With that being said, the patient return in 6 months with KUB and UA. [email or web address] Not available 09/25/2023 15:29:09 Plan of Treatment Reminders Order Date Submit Date Provider Last Modified By Organization Details Last Modified Time Details Appointments None recorded. Lab urinalysis , dipstick 2022 023 [email or web address] [facility], [address] [place] [address], [address], [place], [address], 16:08:29 Referral None recorded. Procedures multiple sleep latency testing (PROC) 2021 [facility] (Central Scheduling), [address] [place] [address] [place], [address], 10:58:13 Surgeries None recorded. Imaging polysomnog coby - Needs PSG followed by MSLT 2021 [facility] (Central Scheduling), [address] [place] [address] [place], [address], 12:08:08 electroenc ephalogram 2021 [facility] (Centralized Scheduling), [address] , [place], [address], 10:13:19 Medication Orders None recorded. Patient TargetsNo targets recorded. Patient InstructionsNo instructions recorded. Reason for Referral None Reported. Results Created Date Observation Date Name Description Value Unit Range Abnormal Flag Note LastModifiedBy Organization Detail LastModifiedTime 04/02/2004/03/2023 LUTEI RUSSELLZIN G HORMO NE luteinizing hormone (LH), ser 7.1 mIU/m L Adult Femal e: Folli cular phase 2.4 - 12.6 Ovula tion phase 14.0 - 95.6 Lutea l phase 1.0 - 11.4 Postm enopa usal 7.7 - 58.5 Perfo rmed at: - [facility] [address] [place] [address] Lab Direc tor: Los carson PhD, Phone : [phone] Not Available [facility] ([facility]) [address] , [place], [address], 04/03/2023 10:13:10 04/02/20 23 04/03/2023 FSH FSH, serum 5.4 mIU/m L Adult Femal e: Folli cular phase 3.5 - 12.5 Ovula tion phase 4.7 - 21.5 Lutea l phase 1.7 - 7.7 Postm enopa usal 25.8 - 134.8 Perfo rmed at: - [facility] [address] [place] [address] Lab Direc tor: Los carson PhD, Phone : [phone] Not Available [facility] ([facility]) [address] [facility], [place], [address], 04/03/2023 10:14:16 08/07/20 23 08/07/2023 urina lysis , dipst ick Leukocytes (reference range) trace Not Available [facility] [address] [facility], [place], [address], 08/07/2023 15:15:15 08/07/2008/07/2023 urina lysis , dipst ick Nitrite (reference range:) negati ve Not Available [facility] [address] [facility], [place], [address], 08/07/2023 15:15:15 08/07/2008/07/2023 urina lysis , dipst ick Urobilinogen (reference range) 0.2 Not Available [facility] [address] [place] [address], [address], 08/07/2023 15:15:15 08/07/20 23 08/07/2023 urina lysis , dipst ick Protein (reference range) negati ve Not Available [facility] [address] [facility], [place], [address], 08/07/2023 15:15:15 08/07/2008/07/2023 urina lysis , dipst ick pH (reference range 5-8.5) 6.0 Not Available [facility] [place] [address], [address], 08/07/2023 15:15:15 08/07/20 23 08/07/2023 urina lysis , dipst ick Blood (reference range:) small Not Available [address], [place], [address], 08/07/2023 15:15:15 08/07/2008/07/2023 urina lysis , dipst ick Specific [place] (reference range) 1.015 Not Available [address], [place], [address], 08/07/2023 15:15:15 08/07/2008/07/2023 urina lysis , dipst ick Ketone (reference range) negati ve Not Available [address], [place], [address], 08/07/2023 15:15:15 08/07/2008/07/2023 urina lysis , dipst ick Bilirubin (reference range) negati ve Not Available [address] [facility], [place], [address], 08/07/2023 15:15:15 08/07/2008/07/2023 urina lysis , dipst ick Glucose (reference range) 250 Not Available [address], [place], [address], 08/07/2023 15:15:15 08/07/2008/07/2023 urina lysis , dipst ick Color (reference range: yellow-brown ) Yellow Not Available [address], [place], [address], 08/07/2023 15:15:15 Result Notes None recorded. Problems Name Problem SNOMED Code Status Onset Date Resolution Date Notes Provider Name and Address Organization Details Recorded Time Syncope 434834054 Active 2021 Malina Hernandez, DO [address], [place], [address] , [place] - [facility] [place] & [place] 15:33:04 Hypersomnia 85893813 Active 2021 Malina Hernandez, DO [address], [place], [address] , [place] - [facility] [place] [facility] [place] 15:34:08 Problem Notes None recorded. Procedures Surgical History Date Name Laterality Status Provider Name and Address Organization Details Recorded Time 09/25/20 23 Cystoscopy-Female completed Silvio Valdez MD [address], [place], [address], [place] - [facility] & [place] 09/25/2023 15:26:11 04/04/20 22 Date of Last Pap Smear completed Vandana Beckera [place] - [facility] & [place] 10/03/2022 14:31:43 10/28/19 22 Behavioral Health Clinician Surgery completed Vandana Eugenioa [place] - [facility] & [place] 10/03/2022 14:45:45 10/28/19 17 Cholecystectomy completed Vandana Eugenioa [place] - [facility] & [place] 10/03/2022 14:32:27 10/28/19 14 Other completed Vandana Eugenioa [place] - [facility] & [place] 10/03/2022 14:44:51 cardiac catheterization completed Vandana Eugenioa [place] - [facility] & [place] 10/03/2022 14:46:31 strabismus surgery completed Vandana Eugenioa [place] - [facility] [place] [facility] [place] 10/03/2022 14:55:15 Imaging Results None recorded. Procedure Notes None recorded. Medical Equipment None Reported. Allergies Allergen ID Allergen Name Allergen Category Reaction Reaction Severity Criticality Documentation Date Start Date Code Code System Note Provider Name and Address Organization Details Recorded Time 88464 aspirin medicatio n chest pain wheezing moderate severe Not available 10/02/2022 1191 RxNorm Vandana catherine, [place] - [facility] & [place] 09:22:42 73171 Bactrim medicatio n arthralgi a (joint pain) muscle cramps severe severe Not available 10/02/2022 18598 9 RxNorm Vandana catherine, [facility] & [place] 2 09:22:49 01765 insect venom environme nt confusion cough dizziness fever flushing headache wheezing moderate moderate moderate mild moderate moderate moderate Not available 10/02/2022 74977 UNK Vandana catherine, [facility] & [place] 2 09:23:13 61430 Pneumococ georges vaccine Not available anaphylax is chest pain facial swelling nausea rash wheezing moderate moderate moderate moderate moderate moderate Not available 10/02/2022 82716 7 RxNorm Vandana catherine, [facility] & [place] 2 09:23:25 17790 rosuvasta tin medicatio n eye swelling facial swelling respirato ry distress moderate moderate moderate Not available 10/02/2022 94563 2 RxNorm Vandana catherine, [facility] & [place] 2 09:23:35 Medications Name Sig Start Date Stop Date Status Note LastModified by Organization Details LastModified Time amoxicillin 500 mg capsule TAKE TWO CAPSULES BY MOUTH TWICE DAILY FOR 10 DAYS -- FINISH ALL MEDICINE -- active Not Available Not Available No t Available furosemide 40 mg tablet TAKE TWO TABLETS BY MOUTH TWICE DAILY ON SATURDAY, Saturday , AND Saturday AND TAKE ONE TABLET TWICE DAILY ON Saturday, , Saturday, AND 04/02 completed Not Available Not Available Not Available medroxyprog esterone 10 mg tablet TAKE TWO TABLETS BY MOUTH EVERY DAY FOR 5 DAYS 10/02 completed Not Available Not Available Not Available metformin 500 mg tablet TAKE ONE TABLET BY MOUTH TWICE DAILY --TAKE WITH FOOD-- active Not Available Not Available No t Available prednisone 10 mg tablet take 4 tablets by mouth once daily in the morning for 5 days, then take 3 tablets each morning for 2 days, then take 2 tablets each morning for 2 days, then take 1 tablet each morning for 2 days, then stop --take with food-- active Not Available Not Available No t Available doxycycline hyclate 100 mg capsule TAKE ONE CAPSULE BY MOUTH TWICE DAILY FOR 10 DAYS -- FINISH ALL MEDICINE -- active Not Available Not Available No t Available ipratropium 0.5 mg-albutero l 3 mg (2.5 mg base)/3 mL nebulizatio n soln INHALE THE CONTENTS OF 1 VIAL VIA NEBULIZER FOUR TIMES DAILY DIRECTED active Not Available Not Available No t Available nitroglycer in 0.1 mg/hr transdermal 24 hour patch apply 1 PATCH TO THE SKIN DIRECTED BY PROVIDER DAILY active Not Available Not Available No t Available bumetanide 2 mg tablet TAKE ONE TABLET BY MOUTH TWICE DAILY active Not Available Not Available No t Available azithromyci n 250 mg tablet TAKE 2 TABLETS BY MOUTH ON DAY 1, THEN TAKE 1 TABLET DAILY ON DAYS 2-5 -- FINISH ALL MEDICINE -- 10/02 completed Not Available Not Available Not Available ibuprofen 800 mg tablet TAKE ONE TABLET BY MOUTH THREE TIMES DAILY NEEDED --TAKE WITH FOOD-- active Not Available Not Available No t Available tizanidine 4 mg tablet TAKE ONE TABLET BY MOUTH THREE TIMES DAILY NEEDED MAY CAUSE DROWSINES S active Not Available Not Available No t Available fluconazole 150 mg tablet TAKE ONE TABLET BY MOUTH NOW A ONE-TIME DOSE 10/02 completed Not Available Not Available Not Available metoprolol succinate ER 50 mg tablet,exte nded release 24 hr TAKE ONE TABLET BY MOUTH ONCE DAILY FOR BLOOD PRESSURE 10/02 completed Not Available Not Available Not Available hydrocodone 5 mg-acetamin ophen 325 mg tablet TAKE ONE TABLET BY MOUTH EVERY 6 HOURS NEEDED FOR SEVERE pain MAY CAUSE DROWSINES S active Not Available Not Available No t Available sucralfate 1 gram tablet TAKE ONE TABLET BY MOUTH FOUR TIMES DAILY active Not Available Not Available No t Available phenazopyri dine 200 mg tablet TAKE ONE TABLET BY MOUTH THREE TIMES DAILY AFTER meals FOR 5 DAYS active Not Available Not Available No t Available ondansetron HCl 4 mg tablet TAKE ONE TABLET BY MOUTH EVERY 8 HOURS NEEDED FOR NAUSEA AND VOMITING active Not Available Not Available No t Available prednisone 20 mg tablet TAKE THREE TABLETS BY MOUTH ONCE DAILY FOR 5 DAYS --TAKE WITH FOOD-- active Not Available Not Available No t Available ciprofloxac in 250 mg tablet TAKE ONE TABLET BY MOUTH EVERY TWELVE HOURS FOR 3 DAYS -- FINISH ALL MEDICINE -- 10/02 completed Not Available Not Available Not Available ciprofloxac in 500 mg tablet TAKE ONE TABLET BY MOUTH TWICE DAILY FOR 7 DAYS -- FINISH ALL MEDICINE -- active Not Available Not Available No t Available sulfamethox azole 800 mg-trimetho prim 160 mg tablet TAKE 1 TABLET BY MOUTH TWICE A DAY FOR 7 DAYS 10/02 completed Not Available Not Available Not Available omeprazole 40 mg capsule,del ayed release TAKE ONE CAPSULE BY MOUTH EVERY DAY active Not Available Not Available No t Available tramadol 50 mg tablet TAKE 1 TO 2 TABLET(S) BY MOUTH EVERY 6 HOURS NEEDED MAY CAUSE DROWSINES S active Not Available Not Available No t Available bisoprolol fumarate 5 mg tablet TAKE ONE TABLET BY MOUTH EVERY DAY FOR heart 10/02 completed Not Available Not Available Not Available lorazepam 0.5 mg tablet TAKE ONE TABLET BY MOUTH BEFORE mri, MAY take second tablet if needed. MAY CAUSE DROWSINES S active Not Available Not Available No t Available pravastatin 10 mg tablet TAKE ONE TABLET BY MOUTH EVERY DAY AT BEDTIME active Not Available Not Available No t Available furosemide 80 mg tablet Take 1 tablet twice a day by oral route. 10/03 completed Not Available Not Available Not Available phenazopyri dine 100 mg tablet 10/03 completed Not Available Not Available Not Available cephalexin 500 mg capsule TAKE TWO CAPSULES BY MOUTH TWICE DAILY FOR 10 DAYS -- FINISH ALL MEDICINE -- 10/02 completed Not Available Not Available Not Available promethazin e 25 mg tablet TAKE 1/2 TO 1 TABLET BY MOUTH EVERY 6 HOURS NEEDED FOR NAUSEA AND VOMITING active Not Available Not Available No t Available Advair Diskus 250 mcg-50 mcg/dose powder for inhalation inhale 1 PUFF BY MOUTH TWICE DAILY active Not Available Not Available No t Available indomethaci n 50 mg capsule TAKE ONE CAPSULE BY MOUTH THREE TIMES DAILY with meals active Not Available Not Available No t Available nitroglycer in 0.4 mg sublingual tablet DISSOLVE 1 TABLET UNDER THE TONGUE EVERY 5 MINUTES NEEDED FOR CHEST PAIN. DO NOT EXCEED A TOTAL OF 3 DOSES IN 15 MINUTES. IF NO RELIEF AFTER 3 DOSES CALL 911/GO TO ER active Not Available Not Available No t Available omeprazole 20 mg capsule,del ayed release TAKE ONE CAPSULE BY MOUTH EVERY DAY active Not Available Not Available No t Available montelukast 10 mg tablet TAKE ONE TABLET BY MOUTH EVERY DAY AT BEDTIME FOR ASTHMA active Not Available Not Available No t Available codeine 10 mg-guaifene sin 100 mg/5 mL oral liquid TAKE 10 ML BY MOUTH EVERY 4 HOURS NEEDED FOR COUGH 10/02 completed Not Available Not Available Not Available mupirocin 2 % topical ointment APPLY TOPICALLY TO THE AFFECTED AREA(S) FOUR TIMES DAILY NEEDED 10/02 completed Not Available Not Available Not Available epinephrine 0.3 mg/0.3 mL injection, auto-inject or INJECT THE CONTENTS OF 1 AUTO-INJE CTOR INTRAMUSC ULARLY ONCE NEEDED FOR ANAPHYLAX IS REACTION. Call 911 AFTER USE active Not Available Not Available No t Available levofloxaci n 500 mg tablet 10/03 completed Not Available Not Available Not Available levofloxaci n 750 mg tablet TAKE ONE TABLET BY MOUTH ONCE DAILY FOR 10 DAYS -- FINISH ALL MEDICINE -- 10/02 completed Not Available Not Available Not Available colchicine 0.6 mg tablet TAKE ONE TABLET BY MOUTH TWICE DAILY active Not Available Not Available No t Available cefdinir 300 mg capsule TAKE ONE CAPSULE BY MOUTH EVERY TWELVE HOURS FOR 10 DAYS -- FINISH ALL MEDICINE -- active Not Available Not Available No t Available spironolact one 50 mg tablet TAKE ONE TABLET BY MOUTH EVERY DAY active Not Available Not Available No t Available Ventolin HFA 90 mcg/actuati on aerosol inhaler INHALE TWO PUFFS BY MOUTH EVERY 4 TO 6 HOURS NEEDED active Not Available Not Available No t Available oxycodone 5 mg tablet TAKE 1 TO 2 TABLET(S) BY MOUTH EVERY 6 HOURS NEEDED MAY CAUSE DROWSINES S active Not Available Not Available No t Available rosuvastati n 40 mg tablet TAKE ONE TABLET BY MOUTH EVERY DAY 09/17 completed Not Available Not Available Not Available Januvia 25 mg tablet TAKE ONE TABLET BY MOUTH EVERY DAY active Not Available Not Available No t Available nebivolol 5 mg tablet TAKE ONE TABLET BY MOUTH EVERY DAY active Not Available Not Available No t Available tramadol ER 100 mg tablet,exte nded release 24hr mphase Take 1 tablet every day by oral route. 10/03 completed Not Available Not Available Not Available Farxiga 10 mg tablet TAKE ONE TABLET BY MOUTH EVERY DAY active Not Available Not Available No t Available Entresto 49 mg-51 mg tablet TAKE ONE TABLET BY MOUTH TWICE DAILY FOR BLOOD PRESSURE AND congestiv e heart failure active Not Available Not Available No t Available Entresto 24 mg-26 mg tablet TAKE ONE TABLET BY MOUTH TWICE DAILY active Not Available Not Available No t Available naloxone 4 mg/actuatio n nasal spray CALL 911. DO NOT PRIME. SPRAY INTO NOSTRIL UPON SIGNS OF OPIOID OVERDOSE. MAY REPEAT IN 2-3 MINUTES IN OPPOSITE NOSTRIL IF NO OR MINIMAL BREATHING AND RESPONSIV ENESS THEN NEEDED EVERY 2-3 MINUTES (IF AVAILABLE ) 10/02 completed Not Available Not Available Not Available oxygen 2L active Not Available Not Availa ble Not Available turmeric 400 mg capsule Take 1 capsule twice a day by oral route. active Not Available Not Available No t Available albuterol sulf 90 mcg/actuati on breath activated powder inhaler,sen sor Inhale 2 puffs every 4 hours by inhalatio n route. active Not Available Not Available No t Available Ozempic 1 mg/dose (4 mg/3 mL) subcutaneou s pen injector INJECT 1 MG SUBCUTANE OUSLY ONCE WEEKLY DIRECTED active Not Available Not Available No t Available Flowflex COVID-19 Antigen Home Test kit USE ACCORDING TO PACKAGE INSTRUCTI ONS active Not Available Not Available No t Available Ozempic 0.25 mg or 0.5 mg (2 mg/3 mL) subcutaneou s pen injector INJECT 0.5 MG SUBCUTANE OUSLY DIRECTED ONCE A WEEK active Not Available Not Available No t Available Vitals Date Recorded Body height Body temperature Oxygen saturation Oxygen saturation in Arterial blood by Pulse oximetry Inhaled oxygen flow rate Heart rate Body mass index (BMI) Body weight Systolic blood pressure Diastolic blood pressure Provider Name and Address Organization Details Last Updated DateTime 3 157.48 cm 97.1 [degF] 98 % 98 % 2 L/min 89 /min 48.3 kg/m2 339601. 39 g 128 mm[Hg] 98 mm[Hg] Phillip ELLER - [facility] [place] 3 13:04:48 Date Recorded Body height Body mass index (BMI) Body weight Systolic blood pressure Diastolic blood pressure Provider Name and Address Organization Details Last Updated DateTime 08/07/2023 157.48 cm 49.4 kg/m2 655572.9 4 g 125 mm[Hg] 75 mm[Hg] Britney Yee [place] - [facility] [place] 3 15:05:24 Date Recorded Body height Body mass index (BMI) Body weight Systolic blood pressure Diastolic blood pressure Provider Name and Address Organization Details Last Updated DateTime 09/25/2023 157.48 cm 51.2 kg/m2 123375.8 6 g 126 mm[Hg] 76 mm[Hg] Ioana Ayala [facility] [place] 3 15:07:04 Date Recorded Body height Body mass index (BMI) Body weight Oxygen saturation Oxygen saturation in Arterial blood by Pulse oximetry Heart rate Systolic blood pressure Diastolic blood pressure Provider Name and Address Organization Details Last Updated DateTime 2 157.48 cm 48.5 kg/m2 506896. 98 g 98 % 98 % 85 /min 94 mm[Hg] 62 mm[Hg] Vandana ELLER [facility] & [place] 2 14:30:48 Social History Question Answer Notes LastModified by Screenle[employer] Details LastModified Time Tobacco Smoking Status [facility] [place] 10/03/2022 14:32:09 Do You Have An Advance Directive? No Information not available 10/03/2022 What Is Your Level Of Alcohol Consumption? Occasional Information not available 10/03/2022 Are You Blind Or Do You Have Difficulty Seeing? No Information not available 10/03/2022 Are You Currently Employed? No [employer] [email or web address] Information not available 09/25/2023 What Was The Date Of Your Most Recent Tobacco Screening? 09/17/2022 Information not available 10/03/2022 Do You Have Any Pets? Yes Information not available 09/25/2023 Are You Passively Exposed To Smoke? No Information not available 10/03/2022 Do You Feel Stressed (tense, Restless, Nervous, Or Anxious, Or Unable To Sleep At Night)? [id number] Information not available 10/03/2022 Do You Use Any Illicit Or Recreational Drugs? No Information not available 10/03/2022 Are You Currently In School? No [employer] [email or web address] Information not available 09/25/2023 Sex: Female Functional Status Question Answer Note LastModified by Screen[employer] Details LastModified Time What is your exercise level? Occasional Information not available 10/03/2022 Mental Status None recorded. Family History Relationship Description Onset Age of this Age Resolved Age Notes LastModified by Organization Details LastModified Time Sister Allergy pt. added direct ly (09/17) [email or web address] Not available 09/17/2022 11:25:38 Sister Anemia pt. added direct ly (09/17) [email or web address] Not available 09/17/2022 11:25:47 Sister Autoimmune disease pt. added direct ly (09/17) [email or web address] Not available 09/17/2022 11:26:00 Sister Gastroesopha geal reflux disease pt. added direct ly (09/17) [email or web address] Not available 09/17/2022 11:26:21 Sister Headache pt. added direct ly (09/17) [email or web address] Not available 09/17/2022 11:26:32 Sister Hypercholest erolemia pt. added direct ly (09/17) [email or web address] Not available 09/17/2022 11:27:06 Sister Hypertensive disorder pt. added direct ly (09/17) [email or web address] Not available 09/17/2022 11:27:18 Sister Obesity pt. added direct ly (09/17) [email or web address] Not available 09/17/2022 11:27:51 Sister Sleep disorder pt. added direct ly (09/17) [email or web address] Not available 09/17/2022 11:28:04 Sister Disorder of thyroid gland pt. added direct ly (09/17) [email or web address] Not available 09/17/2022 11:28:16 Sister Disease of liver pt. added direct ly (03/30) [email or web address] Not available 03/30/2023 18:06:15 Sister Heart disease pt. added direct ly (03/30) [email or web address] Not available 03/30/2023 18:06:25 Mother Allergy pt. added direct ly (09/17) [email or web address] Not available 09/17/2022 11:25:38 Mother Autoimmune disease pt. added direct ly (09/17) [email or web address] Not available 09/17/2022 11:26:00 Mother Gastroesopha geal reflux disease pt. added direct ly (09/17) [email or web address] Not available 09/17/2022 11:26:21 Mother Headache pt. added direct ly (09/17) [email or web address] Not available 09/17/2022 11:26:32 Mother Hypercholest erolemia pt. added direct ly (09/17) [email or web address] Not available 09/17/2022 11:27:06 Mother Hypertensive disorder pt. added direct ly (09/17) [email or web address] Not available 09/17/2022 11:27:18 Mother Mental health problem pt. added direct ly (09/17) [email or web address] Not available 09/17/2022 11:27:27 Mother Obesity pt. added direct ly (09/17) [email or web address] Not available 09/17/2022 11:27:51 Paternal Grandmother Autoimmune disease pt. added direct ly (09/17) [email or web address] Not available 09/17/2022 11:26:00 Father Disorder of endocrine system pt. added direct ly (09/17) [email or web address] Not available 09/17/2022 11:26:13 Father Myocardial infarction pt. added direct ly (09/17) [email or web address] Not available 09/17/2022 11:26:48 Father Heart disease pt. added direct ly (09/17) [email or web address] Not available 09/17/2022 11:26:56 Father Hypercholest erolemia pt. added direct ly (09/17) [email or web address] Not available 09/17/2022 11:27:06 Father Hypertensive disorder pt. added direct ly (09/17) [email or web address] Not available 09/17/2022 11:27:18 Father Obesity pt. added direct ly (09/17) [email or web address] Not available 09/17/2022 11:27:51 Father Sleep disorder pt. added direct ly (09/17) [email or web address] Not available 09/17/2022 11:28:04 Son Headache pt. added direct ly (09/17) [email or web address] Not available 09/17/2022 11:26:32 Son Obesity pt. added direct ly (09/17) [email or web address] Not available 09/17/2022 11:27:51 Paternal Grandfather Myocardial infarction pt. added direct ly (09/17) [email or web address] Not available 09/17/2022 11:26:48 Maternal Aunt Obesity pt. added direct ly (09/17) [email or web address] Not available 09/17/2022 11:27:51 Paternal Aunt Obesity pt. added direct ly (09/17) [email or web address] Not available 09/17/2022 11:27:51 Maternal Grandmother Obesity pt. added direct ly (09/17) [email or web address] Not available 09/17/2022 11:27:51 Medical History Condition Response Kidney Stones Y COPD Y Lung Disease Y GI Problems Y Pneumonia Y Anemia Y Spine Problems Y Diabetes Y Autoimmune disease Y Obesity Y Arthritis Y Head Injury/Concussion Y Congestive Heart Failure (CHF) Y Back Problems Y Asthma Y Reflux/GERD Y High Cholesterol Y Rheumatoid Arthritis Y Headaches Y Hypertension Y Gynecological History Statement/Question Response Menses Monthly N Abnormal Pap N Date of Last Pap Smear 04/04/2022 Current Control Method Sterilizati on Flow Heavy Date of LMP 04/10/2022 Sexually Active? Y Obstetrics History GPAL:G 0 P 0 0 0 0 Past Encounters Encounter ID Performer Location Encounter Start Date Encounter Closed Date Diagnosis/Indication Diagnosis SNOMED-CT Code Diagnosis ICD10 Code Diagnosis [facility] [id number] [facility] [address] [place] [address] 10/03/2022 14:07:23 10/03/2022 15:38:25 Syncope 784180163 R55 She has been experienci ng these stereotypi georges passing out episodes for five years. No definite witnessed convulsion s but some associated brief confusion afterwards .will order EEG to rule out neurologic causes of syncope Hypersomnia 99677734 G47 .10 She describes some significan t episodes of pathologic al sleepiness . She will fall asleep without warning in the middle of talking. This is very infrequent but can be suggestive of narcolepsy . Will order PSG with MSLT to evaluate this in more detail. [id number] Micheline Lackey MD [facility] [address] [place] [address] 04/02/2023 12:53:55 04/02/2023 13:53:12 Pelvic mass 32800041 R19.00 Possible lymphocele versus ovarian remnant from prior hysterecto my and RSO. Patient has left ovary intact. Will check baseline FSH and LH levels. She does state that she does have some right pelvic pain. She has discussed this issue with her gynecologi st who does not feel it is related to her prior surgery. Will contact patient with lab levels and consider further INVESTOR RELATIONS ANALYST follow up. [id number] Silvio Valdez MD [facility] [address] [place] [address],[facility] [address] [place] [address] 08/07/2023 14:35:57 08/07/2023 15:40:17 Recurrent urinary tract infection 356623241 N39.0 Kidney stone 55259789 N2 0.0 Chronic th oracic back pain 2837572022 75472 M54.6 Microscopic hematuria 19 8469057 R31.29 [id number] Silvio Valdez MD [facility] [address] [place] [address],[facility] [address] [place] [address] 09/25/2023 14:26:57 09/25/2023 15:25:02 Recurrent urinary tract infection 642543401 N39.0 Kidney stone 54992455 N2 0.0 Microscopic hematuria 19 5384489 R31.29 Health Concerns Section Related Observation LastModified by Organization Detai ls LastModified Time None Recorded Concern Status LastModified by Organization Details LastModified Time None Recorded Advance Directives Directive N: Payers Encounter Date Sequence Insurance Name Policy Number Policy Valdivia Covered Member ID Valdivia Member ID Guarantor Name 10/03/2022 1 [facility] (MEDICA[facility]) [facility] [id number] Lissy [place] 04/02/2023 1 [employer] [facility] (MEDICAID HMO) [facility] [id number] [facility] 08/07/2023 1 [employer] [facility] (MEDICAID HMO) [facility] [id number] [facility] 09/25/2023 1 [employer] [facility] (MEDICAID HMO) [facility] [id number] [facility] Notes Date Note Type Note Provider Name and Address Organization Details Recorded Time 10/03/2022 text/html 47 y/o right srivastava ded female here for neurologic consultation requested by Dr Hennessy regarding syncope. Lissy is accompanied by her who helps supplement the history for today's visit. Lissy reports having recurrent passing out episodes for at least 5 years. They can happen several times in a day, a few times a week, or she can go a few weeks at a time between episodes. She has found no specific provoking factors.All her episodes are the same. She will start to feel dizzy, her vision tunnels in, she gets sweaty and then she passes out. She will only be out very briefly but then she feels disoriented for a minute or two afterwards. She has never had any witnessed convulsions with these episodes. There has never been incontinence or tongue bite associated.These events are not positional as she has had them occur while lying down or sitting. If she is standing she will fall and has had some injuries due to falling. She estimates at least two concussions related to falling.She has had normal CT head x 2 since these began. She has never had an EEG. She also reports that her sleep is terrible . She has difficulty falling asleep and then once asleep has frequent arousal's. She attributes this to pain that wakes her up and then she can't get back to sleep. She has COPD and dose wear nocturnal oxygen. With the oxygen she does not wake up feeling short of breath. She had a sleep study about 1.5 years ago which she tells me did not show OTTONIEL but she did have oxygen desaturation when sleeping.She has had some instances of falling asleep at inappropriate times. Her describes her to be talking to him and then just fall deep asleep. If can take a few minutes for him to get her back awake. These episodes have been going on a few years but seem to be infrequent. Her previous hose coupling joiner did have a loop recorder placed which she tells me never documented any abnormalities. The battery is now . She had a recent 30 day event monitor. She tells me she never passed out while it was recording but she had a few dizzy spells. She understood that the test showed some brief episodes of carolin-tachy but it was not felt to be long enough to be clinically significant. Malina Hernandez, DO [address] , [place], [address], [place] [facility] [place] 10/04/2022 10:12:03 04/02/2023 text/html 47-year-old curt n referred for a right pelvic fluid collection. Patient had hysterectomy, right salpingo-oophorectom y in 2021. She has undergone imaging on several occasions since then for some occasional, dull, aching right flank pain. She has a 7.4 cm right adnexal fluid collection that has enlarged somewhat over time. Patient states she is seen her senior integration architect for this, was told it is possibly a lymphocele. Micheline Lackey MD [address], [place], [address], [facility] & [place] 04/18/2023 12:50:43 08/07/2023 text/html Location: Histor y of kidney stones/Reoccurring UTI.Quality: Flank pain Right. Bilateral groin painSeverity: 4 UTI's confirmed since 10/2022Started/Durati on: Started with urology issues ~4-5 years agoOnset/Timing: Gradual over yearsContext: Pre DM. CHF. COPD. RA. QUIROGA DZModifying Factor/Therapy:AZO seems to help her painAssociated System: Right Flank pain. Reoccurring UTI, Gross and Micro hematuria. Nocturia x occ. Urinary frequency ( on Fluid pill) History of kidney stones. Passed stone 3 mos ago. One surgical procedure 10 years ago.Previous Evaluation: PCPPrior urologist ( name unknown)Previous Labs:Previous Treatments: antibioticCT scan from 03/19 shows a 1.5 cm nonobstructing right renal stone and multiple left renal stones measuring up to 1.3 cm. She had a CT scan from 04/16/2022 which showed similar findings and another CT on 07/27/2022. She is status post hysterectomy. Silvio Valdez MD [address], [place], [address], [facility] & [place] 08/07/2023 15:35:17 09/25/2023 text/html Patient returns to clinic today with a history of kidney stones recurrent UTIs. She tells me she has occasional right flank pain that is transient. She tells me she has 2-3 UTIs per year. She has passed occasional stones. She had a CT scan done at an outside hospital and the images have been downloaded onto our system. I have reviewed these images and it shows an estimated 1.0 x 1.2 cm right renal pelvic stone without hydronephrosis and an estimated 6 x 8 mm stone in a left lower pole renal calyx without hydronephrosis. She is recovering from a bout of bronchitis but has not been having any recent urinary tract issues. She is also had intermittent hematuria. See below past medical history:Location: History of kidney stones/Reoccurring UTI.Quality: Flank pain Right. Bilateral groin painSeverity: 4 UTI's confirmed since 10/2022Started/Durati on: Started with urology issues ~4-5 years agoOnset/Timing: Gradual over yearsContext: Pre DM. CHF. COPD. RA. QUIROGA DZModifying Factor/Therapy:AZO seems to help her painAssociated System: Right Flank pain. Reoccurring UTI, Gross and Micro hematuria. Nocturia x occ. Urinary frequency ( on Fluid pill) History of kidney stones. Passed stone 3 mos ago. One surgical procedure 10 years ago.Previous Evaluation: PCPPrior urologist ( name unknown)Previous Labs:Previous Treatments: antibioticCT scan from 03/19 shows a 1.5 cm nonobstructing right renal stone and multiple left renal stones measuring up to 1.3 cm[address] She had a CT scan from 04/16/2022 which showed similar findings and another CT on 07/27/2022. She is status post hysterectomy. Silvio Valdez MD [address], [place], [address], [facility] - [place] & [place] 09/25/2023 15:30:10 OBGyn Episode No OBEpisode recorded.
--- OUTSIDE RECORDS SUMMARY | 2025-02-04 19:18 | XMS_ITS | Data Portability ---
Author Organization [facility] Mahamed lomeli, [facility] Address [address] [facility] [facility] [facility] [address] [place] [address] Assessment No assessment recorded. Plan of Treatment Reminders Order Date Submit Date Provider Last Modified By Organization Details Last Modified Time Details Appointments None recorded. Lab None recorded. Referral aquatic therapy referral 2017 018 [email or web address] 2 Not available 8 11:14:18 [facility] behavioral [facility] 2017 018 [facility] [address] [facility], [address], [place], [address], 8 11:14:19 occupationa l therapist referral 2017 018 [email or web address] 2 Not available 8 11:14:17 Procedures None recorded. Surgeries None recorded. Imaging None recorded. Medication Orders None recorded. Patient TargetsNo targets recorded. Patient Instructions Encounter Date Encounter Id Patient Instructions Last Modified By Organization Details Last Modified Time 08/13/2018 [id number] learning about healthy weight Not available 08/13/2018 10:45:00 RTC as PRN. Not available 08/13/2018 16:59:39 Reason for Referral Occupational Therapist Refer ral for Flexor tenosynovitis of finger Referring Physician: Cliff Barber, Rheumatology, Encounter Date: 08/13/2018 Aquatic Therapy Referral for Fibromyalgia fibromyalgia Referring Physician: Cliff Barber Rheumatology, Encounter Date: 08/13/2018 Cognitive Behavioral Therapy Referral for Fibromyalgia fibromyalgia Referring Physician: Cliff Barber, Rheumatology, Encounter Date: 08/13/2018 Medical Equipment None Reported. Allergies Allergen ID Allergen Name Allergen Category Reaction Reaction Severity Criticality Documentation Date Start Date Code Code System Note Provider Name and Address Organization Details Recorded Time 101026 aspirin medicatio n Not available Not available Not available 08/13/2018 1191 RxNorm Melinda Hudson [facility] 8 10:01:54 Medications Name Sig Start Date Stop Date Status Note LastModified by Organization Details LastModified Time Singulair 10 mg tablet Take 1 tablet every day by oral route. active Not Available Not Available No t Available prednisone 10 mg tablet active PRN uses approx once month starting with 40mg and tapers down Not Available Not Available Not Available tramadol 50 mg tablet Take 1 tablet twice a day by oral route. active Not Available Not Available No t Available spironolac tone 50 mg tablet Take 1 tablet every day by oral route. active Not Available Not Available No t Available Advil active Not Available Not Availa ble Not Available Advair Diskus active Not Available Not Available Not Available Bystolic 10 mg tablet Take 1 tablet every day by oral route. active Not Available Not Available No t Available melatonin 2.5 mg chewable tablet Take by oral route. active Not Available Not Available No t Available albuterol sulfate 90 mcg/actuat ion breath activated powder inhaler Inhale 2 puffs every 4 hours by inhalatio n route. active Not Available Not Available No t Available oxygen active 2Liter at bedtime Not Available Not Available Not Available Vitals Date Recorded Body weight Body mass index (BMI) Body height Respiratory rate Heart rate Systolic blood pressure Diastolic blood pressure Provider Name and Address Organization Details Last Updated DateTime 8 441340. 12 g 48.2 kg/m2 160.02 cm 18 /min 61 /min 132 mm[Hg] 96 mm[Hg] Melinda Hudson [facility] 8 10:06:40 Social History Question Answer Notes LastModified by Organizat ion Details LastModified Time Tobacco Smoking Status Never Smoker Melinda Hudson [facility] 08/13/2018 10:02:03 What Was The Date Of Your Most Recent Tobacco Screening? 08/13/2018 Information n ot available 12/15/2019 Sex: Unknown Functional Status None recorded. Mental Status None recorded. Family History Relationship Description Onset Age of this Age Resolved Age Notes LastModified by Organization Details LastModified Time Father No current problems or disability [email or web address] Not available 08/13 10:02:01 Mother No current problems or disability [email or web address] Not available 08/13 10:02:01 Medical History Condition Response Diabetes N Bleeding Disorder N Arthritis Y Emphysema N Heart Disease Y Acid Reflux (GERD) Y Rheumatoid Arthritis N Hypertension Y COPD N Asthma Y Gynecological HistoryNo gynecological history recorded. Obstetrics History GPAL:G 0 P 0 0 0 0 Past Encounters Encounter ID Performer Location Encounter Start Date Encounter Closed Date Diagnosis/Indication Diagnosis SNOMED-CT Code Diagnosis ICD10 Code Diagnosis Note [id number] CLIFF BARBER MD [facility] [address] [place] [address] 08/13/2018 09:13:44 08/13/2018 10:48:47 Multiple joint pain 57667259 M25.50 she has clinical features of Dixon OA. no features of an inflammato ry arthritis noted. no features of rheumatoid noted. 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 would suggest to avoid steroids and start OT as stated below. she can RTC with me as prn. Fibromyalgia 044042850 M 79.7 she has clinical features suggestive of fibromyalg ia. she has wide spread pains. chronic fatigue. poor non restorativ e sleep in settings of sleep apnea. Patient education regarding the disease, treatment approaches , good sleep hygiene and the adverse effects of poor sleep on pain, and the importance of treating co-morbidi ties that may contribute to symptoms, including mood or sleep disorders reviewed in detail. Exercise program, including aerobic conditioni ng, stretching , pool (aquatic) therapy and strengthen ing are strongly encouraged . I would suggest aquatic therapy and cognitive behavioral therapy. further encouraged strict low carb diet. weight loss would also help. Drug monotherap y, eg, Amitriptyl ine, Duloxetine , Pregabalin , or Milnacipra n for treatment of symptoms not relieved by nonpharmac ologic measures are reviewed. no need for any additional medical therapy. would encourage to work on non pharmacolo gic therapy over the next 6 months. I de-emphasi zed on the use of Narcotics in Fibromyalg ia due to their lack of efficacy in fibromyalg ia and risk for addictive potential. OTTONIEL. On CPAP and oxygen. Flexor ten osynovitis of finger M65.849 Right middle and ring finger tenosynovi tis, and left middle finger tenosynovi tis. seems more like acquired. no features of inflammato ry arthritis noted. needs to start OT to help with the ROM and sample grader. 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 Health Concerns Section Related Observation LastModified by Organization Detai ls LastModified Time None Recorded Concern Status LastModified by Organization Details LastModified Time None Recorded Advance Directives Directive None Recorded Payers Encounter Date Sequence Insurance Name Policy Number Policy Valdivia Covered Member ID Valdivia Member ID Guarantor Name 08/13/2018 1 [employer] [employer] [id number] Lissy Valdez [id number] Lissy Valdez Notes Date Note Type Note Provider Name and Address Organization Details Recorded Time 08/13/2018 text/html seen as a new patient. Followed by PCP. she has chronic pains in her joints , at least well over a year. seems to be more with activities especially with use of mouse. she has had evaluations in the past with her PCP, and had lupus studies and were negative . she has chronic unexplained syncope. followed by cardiology and has a loop recorder. Further has some borderline diabetes. she has elevated ESR was at 62 mm/hr few years ago, and most recent test is now at 39 mm,/hr and a normal CK and a normal TSH. CLIFF BARBER MD [address] [place] [address], [address], [facility] 08/13/2018 17:00:47 OBGyn Episode No OBEpisode recorded.
== END 2025-01-29 12:12 | disposition home or self-care (01) ==
LOC: ER 21:05 → 2ND 21:48
PROVIDERS: Nurse Practitioner Acute Care; Admitting Provider Internal Medicine Adolescent Medicine; Emergency Provider Emergency Medicine; PCP Internal Medicine; Visit Provider Internal Medicine Adolescent Medicine
DX: N20.0 Calculus of kidney (principal); E11.9 Type 2 diabetes mellitus without complications; I50.32 Chronic diastolic (congestive) heart failure; E66.01 Morbid (severe) obesity due to excess calories; Z68.43 Body mass index [BMI] 50.0-59.9, adult; I11.0 Hypertensive heart disease with heart failure; J44.9 Chronic obstructive pulmonary disease, unspecified; N30.00 Acute cystitis without hematuria; Z88.0 Allergy status to penicillin; Z88.1 Allergy status to other antibiotic agents; Z88.8 Allergy status to other drugs, medicaments and biological substances; Z79.84 Long term (current) use of oral hypoglycemic drugs; Z79.85 Long-term (current) use of injectable non-insulin antidiabetic drugs; Z79.899 Other long term (current) drug therapy; Z88.2 Allergy status to sulfonamides; Z16.24 Resistance to multiple antibiotics; B96.4 Proteus (mirabilis) (morganii) as the cause of diseases classified elsewhere
CPT/HCPCS: 36410; 36415; 74176; 80048; 80053; 81001; 82962; 83690; 83735; 85007; 85025; 85027; 87040; 87086; 87088; 87186; 99285; G0378; J0131; J0696; J1335; J1885; J2405; J2550; J7120

== ENCOUNTER 2025-01-30 12:09 | Outpatient (CLI) | payer OTHER, SELFPAY | END 2025-01-30 23:59 | disposition home or self-care (01) | LOC: INF 12:10 | PROVIDERS: PCP Internal Medicine; Visit Provider Internal Medicine Adolescent Medicine | DX: A41.9 Sepsis, unspecified organism (principal); R65.20 Severe sepsis without septic shock ==

== ENCOUNTER 2025-01-31 11:35 | Outpatient (CLI) | payer OTHER, SELFPAY ==
[2025-01-31] MEDS: ERTAPENEM SODIUM 1 GM in 0.9 % SODIUM CHLORIDE 50 ML IV (11:50)
[2025-01-31 11:53] VITALS: BP 111/69; PULSE 70; RESP 18; O2SAT 96
== END 2025-01-31 12:19 | disposition home or self-care (01) ==
LOC: INF 11:36
PROVIDERS: PCP Internal Medicine; Visit Provider Internal Medicine Adolescent Medicine
DX: A41.9 Sepsis, unspecified organism (principal); R65.20 Severe sepsis without septic shock
CPT/HCPCS: 96365; J1335

== ENCOUNTER 2025-02-01 12:46 | Outpatient (CLI) | payer OTHER, SELFPAY ==
[2025-02-01] MEDS: ERTAPENEM SODIUM 1 GM in 0.9 % SODIUM CHLORIDE 50 ML IV (12:54)
[2025-02-01] MEDS: SODIUM CHLORIDE 0.9% 50ML BAG 50 ML IV (12:54)
[2025-02-01 13:00] VITALS: BP 116/72; PULSE 79; RESP 18; TEMP 36.6; O2SAT 98
[2025-02-01 13:35] VITALS: BP 128/75; PULSE 78
== END 2025-02-01 13:40 | disposition home or self-care (01) ==
LOC: INF 12:47
PROVIDERS: PCP Internal Medicine; Visit Provider Internal Medicine Adolescent Medicine
DX: N12 Tubulo-interstitial nephritis, not specified as acute or chronic (principal); N30.00 Acute cystitis without hematuria
CPT/HCPCS: 96365; J1335

== ENCOUNTER 2025-02-02 12:22 | Outpatient (CLI) | payer OTHER, SELFPAY ==
[2025-02-02 12:32] VITALS: BP 95/45; PULSE 53; RESP 19; TEMP 36.4; O2SAT 95
[2025-02-02] MEDS: SODIUM CHLORIDE 0.9% 10ML FLUSH SYRINGE 10 ML IV (12:32)
[2025-02-02] MEDS: ERTAPENEM SODIUM 1 GM in 0.9 % SODIUM CHLORIDE 50 ML IV (12:32)
[2025-02-02] MEDS: SODIUM CHLORIDE 0.9% 50ML BAG 50 ML IV (12:32)
[2025-02-02 13:10] VITALS: BP 103/61; PULSE 57; RESP 16; TEMP 36.4; O2SAT 94
== END 2025-02-02 13:10 | disposition home or self-care (01) ==
LOC: INF 12:22
PROVIDERS: PCP Internal Medicine; Visit Provider Internal Medicine Adolescent Medicine
DX: N12 Tubulo-interstitial nephritis, not specified as acute or chronic (principal)
CPT/HCPCS: 96365; J1335

== ENCOUNTER 2025-02-03 12:46 | Outpatient (CLI) | payer OTHER, SELFPAY ==
[2025-02-03] MEDS: SODIUM CHLORIDE 0.9% 50ML BAG 50 ML IV (12:55)
[2025-02-03 12:56] VITALS: BP 118/55; PULSE 56; RESP 20; TEMP 36.6; O2SAT 97
[2025-02-03] MEDS: ERTAPENEM SODIUM 1 GM in 0.9 % SODIUM CHLORIDE 50 ML IV (12:56)
[2025-02-03] MEDS: SODIUM CHLORIDE 0.9% 10ML FLUSH SYRINGE 10 ML IV (13:07)
[2025-02-03 13:30] LABS: Microscopic, Urine URINE MICROSCOPIC (MICROSCOPIC)
[2025-02-03 13:45] VITALS: BP 105/74; PULSE 61; RESP 20; O2SAT 98
[2025-02-03 13:49] LABS: Basophils # 0.1 K/mm3 (0-0.2); Basophils % 0.6 % (0.1-2.0); Eosinophils # 0.2 K/mm3 (0.0-0.4); Eosinophils % 1.8 % (0.1-12.0); Hematocrit 46.3 % (37.0-47.0); Hemoglobin 14.8 g/dL (12.2-16.2); Lymphocytes # 2.3 K/mm3 (0.7-4.5); Lymphocytes % 25.8 % (10-50); Mean Corpuscular Hemoglobin 27.5 pg (27.0-31.2); Mean Corpuscular Volume 85.9 fl (81-99); Mean Platelet Volume 9.6 fl (7.4-10.4); Monocytes # 0.6 K/mm3 (0.1-1.0); Neutrophils # 5.7 K/mm3 (1.8-7.8); Neutrophils % 64.6 % (37.0-80.0); Nucleated Red Blood Cells # 0 10^3/uL; Nucleated Red Blood Cells % 0 %; Platelet Count 337 K/mm3 (142-424); Red Blood Count 5.39 M/mm3 (4.20-5.40); Red Cell Distribution Width 13.6 % (11.5-17.5); Red Cell Distribution Width-SD 42.5 fL; White Blood Count 8.8 K/mm3 (4.8-10.8)
[2025-02-03 14:15] LABS: Albumin Level 3.8 g/dl (3.5-5.0); Chloride 100 mmol/L (98-107)
[2025-02-03 14:16] LABS: Potassium 3.5 mmoL/L (3.5-5.1); Sodium 139 mmol/L (136-145)
[2025-02-03 14:17] LABS: Appearance,Urine CLEAR (Clear); Bilirubin,Urine Negative (Negative); Blood, Urine TRACE-L (Negative); Color,Urine YELLOW (Yellow); Glucose,Urine (UA) 2+ (Negative); Ketones,Urine Negative (Negative); Leukocyte Esterase,Urine 1+ (Negative); Nitrate,Urine Negative (Negative); Protein,Urine Negative (Negative); Urobilinogen,Urine 0.2 EU/dl (0.2)
[2025-02-03 14:18] LABS: Alanine Aminotransferase 46 U/L (12-78); Albumin/Globulin Ratio 1.1 (1.1-1.8); Alkaline Phosphatase 101 U/L (38-126); Anion Gap 12.5 mEq/L (5-15); Aspartate Amino Transferase 43 U/L (14-36); Bilirubin,Total 0.5 mg/dl (0.2-1.3); Blood Urea Nitrogen 7 mg/dl (7-17); Carbon Dioxide 30 mmol/L (22.0-30.0); Estimated Glomerular Filt Rate 105 ml/min (>60); GFR (African American) 128 ML/MIN (>60); Globulin 3.4 g/dL (1.3-3.2); Total Protein,Serum 7.2 g/dl (6.3-8.2)
[2025-02-03 14:19] LABS: Calcium 9.8 mg/dl (8.4-10.2); Glucose 120 mg/dl (74-100)
[2025-02-03 15:50] LABS: WBC,Urine 20-50 #/hpf (0-3)
[2025-02-03 15:51] LABS: Bacteria,Urine 1+ /lpf; Yeast,Urine 1+ /lpf
[2025-02-04 13:01] LABS: Amphetamine/Metha Screen,Urine Negative ng/ml (<1000); Benzodiazepines Screen,Urine Negative ng/ml (<200)
[2025-02-04 13:02] LABS: Barbiturates Screen,Urine Negative ng/ml (<200)
[2025-02-04 13:03] LABS: Cannabinoid Screen,Urine Negative ng/ml (<50); Methadone Screen,Urine Negative ng/ml (<300)
[2025-02-04 13:04] LABS: Cocaine Screen,Urine Negative ng/ml (<300)
[2025-02-04 13:05] LABS: Opiate Screen,Urine Negative ng/ml (<300); Phencyclidine Screen,Urine Negative ng/ml (<25)
== END 2025-02-03 13:45 | disposition home or self-care (01) ==
LOC: INF 12:46
PROVIDERS: Nurse Practitioner Family; PCP Internal Medicine; Visit Provider Internal Medicine
DX: N12 Tubulo-interstitial nephritis, not specified as acute or chronic (principal)
CPT/HCPCS: 80053; 80307; 81001; 85025; 87086; 96365; J1335

== ENCOUNTER 2025-02-04 12:55 | Outpatient (CLI) | payer OTHER, SELFPAY ==
[2025-02-04 13:08] VITALS: BP 108/72; PULSE 67; RESP 18; TEMP 36.7; O2SAT 98
[2025-02-04] MEDS: SODIUM CHLORIDE 0.9% 10ML FLUSH SYRINGE 10 ML IV (13:08)
[2025-02-04] MEDS: ERTAPENEM SODIUM 1 GM in 0.9 % SODIUM CHLORIDE 50 ML IV (13:08)
[2025-02-04] MEDS: SODIUM CHLORIDE 0.9% 50ML BAG 50 ML IV (13:08)
[2025-02-04 13:50] VITALS: BP 116/56; PULSE 55; RESP 18; O2SAT 98
--- NOTE | 2025-02-04 14:45 | US_ITS ---
FINAL REPORT CLINICAL HISTORY: History of left renal stone seen on CT scan, infection COMPARISON: CT abdomen and pelvis 01/27/2025 FINDINGS: RENAL ULTRASOUND Ultrasound images of the kidneys were obtained. The right kidney measures 12.3 cm in length. The left kidney measures 13.3 cm in length. There is no hydronephrosis. Calcification in the lower pole of the left kidney corresponds to a partial staghorn calculus. No renal mass identified. There is incidental note made of fatty infiltration of the liver. IMPRESSION: Normal renal size without evidence of obstruction. Partial staghorn calculus lower pole left kidney. Reviewed, Interpreted and Dictated by Andreea Mar MD Transcribed by Liliam Benoit Authenticated and [facility]
== END 2025-02-04 23:59 | disposition home or self-care (01) ==
LOC: INF 12:56
PROVIDERS: PCP Internal Medicine Cardiovascular Disease; Visit Provider Nurse Practitioner Family
DX: N12 Tubulo-interstitial nephritis, not specified as acute or chronic (principal); N20.0 Calculus of kidney; R10.9 Unspecified abdominal pain
CPT/HCPCS: 76770; 96365; J1335

== ENCOUNTER 2025-02-04 20:42 | Emergency (ER) | payer OTHER, SELFPAY ==
[2025-02-04 21:50] VITALS: BP 131/70; PULSE 58; RESP 20; TEMP 36.9; O2SAT 95; BMI 49.6
[2025-02-04 22:00] VITALS: BP 156/76; PULSE 56; RESP 18; O2SAT 93
--- NOTE | 2025-02-04 22:15 | CT_ITS ---
PROCEDURE INFORMATION: Exam: CT Abdomen And Pelvis Without Contrast Exam date and time: 02/04/2025 10:23 PM Age: 49 years old Clinical indication: Abdominal pain; Additional info: Concern for L kidney stone, severe pain TECHNIQUE: Imaging protocol: Computed tomography of the abdomen and pelvis without contrast. Radiation optimization: All CT scans at this facility use at least one of these dose optimization techniques: automated exposure control; mA and/or kV adjustment per patient size (includes targeted exams where dose is matched to clinical indication); or iterative reconstruction. COMPARISON: 1. CT ABDOMEN PELVIS WO CON 01/27/2025 6:[address] ABDOMEN PELVIS WO CON 03/01/2023 1:[address] ABDOMEN PELVIS W CON 02/12/2024 2:10 AM FINDINGS: Lungs: Lung bases are clear. Heart: Stable small nodular bandlike density in the posteromedial inferior left upper lobe adjacent to the left heart border on axial image 17 dating back to 03/01/2023 compatible with benign process. No follow-up advised. Liver: Fatty liver changes with associated hepatomegaly measuring 20 cm. Liver otherwise unremarkable. Gallbladder and biliary ducts: Status post cholecystectomy. No evident bile duct dilatation allowing for prior cholecystectomy. Pancreas: Normal. No ductal dilation. Spleen: Normal. No splenomegaly. Adrenal glands: Normal. No mass. Kidneys and ureters: 1 mm nonobstructing inferior right kidney stone. Right kidney and ureter otherwise unremarkable with no obstructing stones or uropathy. Large 3.4 x 2.4 x 1.9 cm staghorn calculus on the left again noted which extends from a inferior pole calyx into the proximal aspect of the left ureter. The calculus appears to have moved slightly and is now located approximately 5 mm more superiorly in the inferior pole calyx with slight extension into the proximal left ureter now evident. No definite hydronephrosis. Some additional tiny nonobstructing inferior pole stones in the left also noted. Left kidney and ureter otherwise unremarkable with no obstructing stones or uropathy. Stomach and bowel: Unremarkable. No obstruction. No mucosal thickening. Appendix: Appendix is normal. No evidence of appendicitis. Intraperitoneal space: Unremarkable. No free air. No significant fluid collection. Vasculature: Unremarkable. No abdominal aortic aneurysm. Lymph nodes: Unremarkable. No enlarged lymph nodes. Urinary bladder: Unremarkable as visualized. Reproductive: Hysterectomy. Bones/joints: Unremarkable. No acute fracture. Soft tissues: Unremarkable. Other findings: Large benign-appearing cystic lesion in the right side of the pelvis measuring approximately 11 cm in maximum dimension is again noted and stable. IMPRESSION: Large left-sided staghorn calculus noted that has migrated slightly more distally in the left kidney with slight extension into the proximal ureter now evident. No evident hydronephrosis. Additional nonemergent findings as above.
[2025-02-04 22:18] LABS: Microscopic, Urine URINE MICROSCOPIC (MICROSCOPIC)
[2025-02-04] MEDS: ONDANSETRON 4MG/2ML VIAL 4 MG IV (22:18)
[2025-02-04] MEDS: KETOROLAC 30MG/ML VIAL 15 MG IV (22:33)
[2025-02-04] MEDS: HYDROMORPHONE 2MG/ML SYRINGE 1 MG IV (22:33)
[2025-02-04 22:42] LABS: Appearance,Urine CLOUDY (Clear); Bilirubin,Urine Negative (Negative); Blood, Urine 2+ (Negative); Color,Urine ORANGE (Yellow); Glucose,Urine (UA) 3+ (Negative); Ketones,Urine 1+ (Negative); Leukocyte Esterase,Urine 1+ (Negative); Nitrate,Urine POSITIVE (Negative); Protein,Urine 3+ (Negative); Urobilinogen,Urine >=8.0 EU/dl (0.2)
[2025-02-04 22:51] LABS: Basophils # 0.1 K/mm3 (0-0.2); Basophils % 0.4 % (0.1-2.0); Eosinophils % 0.2 % (0.1-12.0); Hematocrit 46.5 % (37.0-47.0); Hemoglobin 15.1 g/dL (12.2-16.2); Lymphocytes # 2.1 K/mm3 (0.7-4.5); Lymphocytes % 16.5 % (10-50); Mean Corpuscular HGB Conc 32.5 g/dL (31.8-35.4); Mean Corpuscular Hemoglobin 27.8 pg (27.0-31.2); Mean Corpuscular Volume 85.5 fl (81-99); Mean Platelet Volume 9.5 fl (7.4-10.4); Monocytes # 0.6 K/mm3 (0.1-1.0); Monocytes % 4.6 % (1.7-9.3); Neutrophils # 9.8 K/mm3 (1.8-7.8); Neutrophils % 77.9 % (37.0-80.0); Nucleated Red Blood Cells # 0 10^3/uL; Nucleated Red Blood Cells % 0 %; Platelet Count 351 K/mm3 (142-424); Red Blood Count 5.44 M/mm3 (4.20-5.40); Red Cell Distribution Width 13.3 % (11.5-17.5); Red Cell Distribution Width-SD 41.5 fL; White Blood Count 12.5 K/mm3 (4.8-10.8)
[2025-02-04 23:04] VITALS: BP 110/71; PULSE 60; RESP 18; O2SAT 96
[2025-02-04 23:07] LABS: Chloride 97 mmol/L (98-107); Potassium 3.7 mmoL/L (3.5-5.1); Sodium 136 mmol/L (136-145)
[2025-02-04 23:09] LABS: Blood Urea Nitrogen 6 mg/dl (7-17); Creatinine Clearance Estimated 92 mL/min (50-200); Estimated Glomerular Filt Rate 105 ml/min (>60); GFR (African American) 128 ML/MIN (>60)
[2025-02-04 23:10] LABS: Alanine Aminotransferase 42 U/L (12-78); Albumin/Globulin Ratio 1.1 (1.1-1.8); Alkaline Phosphatase 100 U/L (38-126); Anion Gap 12.7 mEq/L (5-15); Aspartate Amino Transferase 33 U/L (14-36); Bilirubin,Total 0.6 mg/dl (0.2-1.3); Calcium 9.9 mg/dl (8.4-10.2); Carbon Dioxide 30 mmol/L (22.0-30.0); Globulin 3.8 g/dL (1.3-3.2); Glucose 132 mg/dl (74-100); Total Protein,Serum 7.8 g/dl (6.3-8.2)
[2025-02-04 23:11] LABS: Lactic Acid 1.7 mmol/L (0.7-2.1)
--- NOTE | 2025-02-04 23:13 | HMH.EDGENADL ---
Discharge Plan Disposition Patient Disposition: Home, Self-Care Condition: Good Prescriptions Prescriptions: New oxycodone 5 mg tablet 5 mg PO Q8H PRN (Reason: pain) Qty: 12 0RF ketorolac 10 mg tablet 10 mg PO Q6H PRN (Reason: pain) 5 Days Qty: 20 0RF No Action spironolactone [Aldactone] 50 mg tablet 50 mg PO DAILY Entresto 24-26 mg tablet 1 tab PO BID (DME) OneTouch Verio test strips Strip See Rx Instructions .Route Qty: 300 1RF Rx Instructions: As directed methenamine hippurate 1 gram tablet 1 g PO BID Qty: 60 5RF bumetanide 2 mg tablet 2 mg PO BID Qty: 90 0RF empagliflozin 25 mg tablet 25 mg PO DAILY Qty: 90 1RF oxybutynin chloride 5 mg tablet 5 mg PO BID PRN (Reason: bladder spasms) Qty: 60 1RF albuterol sulfate [ProAir HFA] 90 mcg/actuation HFA aerosol inhaler 2 puff IH Q4HP PRN (Reason: Shortness Of Breath) omeprazole 20 mg capsule,delayed release(DR/EC) 20 mg PO DAILY pravastatin 40 mg tablet 40 mg PO HS Qty: 90 1RF tramadol 50 mg tablet 50 mg PO Q6H PRN (Reason: pain) Qty: 120 0RF sennosides [senna] 8.6 mg tablet 8.6 mg PO BID PRN (Reason: constipation) Qty: 30 0RF hydrocodone-acetaminophen 7.5-325 mg tablet 1 tab PO Q4-6H PRN (Reason: pain) 7 Days Qty: 28 0RF metformin 500 mg tablet 500 mg PO BID Rx Instructions: TAKE ONE TABLET BY MOUTH TWICE DAILY ibuprofen 800 mg tablet 800 mg PO TID PRN (Reason: Pain) Rx Instructions: TAKE ONE TABLET BY MOUTH THREE TIMES DAILY NEEDED WITH FOOD ascorbic acid (vitamin C) [Vitamin C] 500 mg tablet 500 mg PO BID Rx Instructions: TAKE ONE TABLET BY MOUTH TWICE DAILY montelukast 10 mg tablet 10 mg PO HS Rx Instructions: TAKE ONE TABLET BY MOUTH EVERY DAY AT BEDTIME FOR ASTHMA cholecalciferol (vitamin D3) 125 mcg (5,000 unit) capsule 5,000 unit PO Q48H Mounjaro 2.5 mg/0.5 mL pen injector 2.5 mg SQ WEEKLY Rx Instructions: for 4 weeks oxycodone-acetaminophen 5-325 mg tablet 1 tab PO Q6H PRN (Reason: pain) Qty: 11 0RF Ertapenem Sodium [Invanz 1gm Vial] 1 GM 0.9 % Sodium Chloride [Sod Chlor 0.9% 50mL bag] 50 ML 100 mls/hr IV Q24H Ordered By: Alexys Matias MD Last Taken: Unknown nebivolol 5 MG tablet 5 mg PO DAILY cetirizine [Zyrtec] 10 mg Tablet 10 mg PO DAILY Referrals Follow up/Referrals: Juarez Griffin MD [Primary Care Provider] - See instructions Activity Restrictions/Add. Instructions Additional Instructions/Restrictions: I prescribed Toradol and oxycodone for breakthrough pain. Please discontinue all other NSAIDs such as aspirin or ibuprofen. Would also recommend discontinuing the tramadol. Okay to take Tylenol and muscle relaxers. Please call your PCP to have your IV antibiotics extended. Please return to the emergency department if you develop any new or worsening symptoms or become concerned for your health. Clinical Impressions Clinical Impression: Staghorn renal calculus, UTI (urinary tract infection), Flank pain Instructions Patient Instructions: DI for Acute Abdominal Pain Print Language Print Language: Albanian Discharge ED Provider: Gennaro Cuevas General Adult HPI <Jose Alejandro Kim MD - Last Filed: 02/04/25 23:16> General Chief complaint: Abdominal Pain Stated complaint: Back,stomach,flank pain with vomiting Time Seen by Provider: 02/04/25 21:41 Mode of Arrival: Ambulatory Source of Information: Patient and Spouse Description of Symptoms (Recalled from ER Triage Doc. by RN): pt reports nausea and vomitting that became increasingly worse and is unable to keep anything down. pt is also reporting severe back pain pain, left flank, and left sided abdominal pain. History of Present Illness HPI narrative: Please note that above description of symptoms, in this electronic medical record under categorization of recalled from ER triage doctor by RN are reflective of an initial nursing assessment, however, is not reflective of my full history and physical exam that was personally taken and clarified. Consequentially, this preceding description of symptoms, which may include the patient's categorized chief complaint in the EMR, do not reflect my personal clinical impression, and the ultimate description of history of present illness and patient stated complaints should be deferred to this section of the note. Unless stated otherwise or congruent with this section of the note, additional signs, symptoms, or incongruence should be interpreted as inaccurate with my clinical impression. Related Data Home Medications ?Medication ?Instructions ?Recorded ?Confirmed nebivolol 5 mg tablet 5 mg PO DAILY 12/21/21 02/04/25 albuterol sulfate 90 mcg/actuation 2 puff inhalation Q4HP PRN 12/28/21 02/04/25 aerosol inhaler (ProAir HFA) Shortness Of Breath spironolactone 50 mg tablet 50 mg PO DAILY 03/30/22 02/04/25 (Aldactone) omeprazole 20 mg capsule,delayed 20 mg PO DAILY 04/24/22 02/04/25 release sacubitril 24 mg-valsartan 26 mg 1 tab PO BID 03/04/23 02/04/25 tablet (Entresto) cetirizine 10 mg tablet (Zyrtec) 10 mg PO DAILY 02/06/24 02/04/25 ascorbic acid (vitamin C) 500 mg 500 mg PO BID 01/27/25 02/04/25 tablet (Vitamin C) cholecalciferol (vitamin D3) 125 5,000 unit PO Q48H 01/27/25 02/04/25 mcg (5,000 unit) capsule ibuprofen 800 mg tablet 800 mg PO TID PRN Pain 01/27/25 02/04/25 metformin 500 mg tablet 500 mg PO BID 01/27/25 02/04/25 montelukast 10 mg tablet 10 mg PO HS 01/27/25 02/04/25 tirzepatide 2.5 mg/0.5 mL 2.5 mg SQ WEEKLY 01/28/25 02/04/25 subcutaneous pen injector (Elbertuntiago) Previous Rx's ?Medication ?Instructions ?Recorded blood sugar diagnostic (FreshGradeTouch #300 ea 09/02/24 Verio test strips) methenamine hippurate 1 gram tablet 1 g PO BID #60 tabs 10/07/24 pravastatin 40 mg tablet 40 mg PO HS #90 tabs 11/11/24 Ertapenem Sodium [Invanz 1gm Vial] 100 mls/hr IV Q24H 01/29/25 1 gm oxycodone-acetaminophen 5 mg-325 1 tab PO Q6H PRN pain #11 tabs 01/29/25 mg tablet tramadol 50 mg tablet 50 mg PO Q6H PRN pain #120 tabs 02/02/25 bumetanide 2 mg tablet 2 mg PO BID #90 tabs 02/03/25 empagliflozin 25 mg tablet 25 mg PO DAILY #90 tabs 02/03/25 hydrocodone 7.5 mg-acetaminophen 1 tab PO Q4-6H PRN pain 7 days #28 02/03/25 325 mg tablet tabs oxybutynin chloride 5 mg tablet 5 mg PO BID PRN bladder spasms #60 02/03/25 tabs sennosides 8.6 mg tablet (senna) 8.6 mg PO BID PRN constipation #30 02/03/25 tabs ketorolac 10 mg tablet 10 mg PO Q6H PRN pain 5 days #20 02/05/25 tabs oxycodone 5 mg tablet 5 mg PO Q8H PRN pain #12 tabs 02/05/25 Allergies Allergy/AdvReac Type Severity Reaction Status Date / Time aspirin Allergy Severe S-DIFF. Verified 02/03/25 13:11 BREATHING bee venom protein (honey bee) Allergy Severe Anaphylaxis Verified 02/03/25 13:11 Bleach (Sodium Hypochlorite) Allergy Severe diff. Verified 02/03/25 13:11 breathing, dizzy amoxicillin (From Augmentin) Allergy Mild Unknown Verified 02/03/25 13:11 allergy reaction clavulanic acid (From Allergy Mild Unknown Verified 02/03/25 13:11 Augmentin) allergy reaction fluconazole (From Diflucan) Allergy Mild Unknown Verified 02/03/25 13:11 allergy reaction levofloxacin (From Levaquin) Allergy Difficulty Verified 02/03/25 13:11 Breathing pneumococcal vaccine Allergy Unknown Verified 02/03/25 13:11 allergy reaction sulfamethoxazole (From Allergy Unknown Verified 02/03/25 13:11 Bactrim) allergy reaction trimethoprim (From Bactrim) Allergy Unknown Verified 02/03/25 13:11 allergy reaction sucralose (From SUCRALOSE AdvReac Severe breathing Verified 02/03/25 13:11 (FOOD/DRUG)) problems PFS <Jose Alejandro Kim MD - Last Filed: 02/04/25 23:16> [facility] Disclaimer: The information contained in this section may have been updated after the patient was seen, as this information can be updated by other users. Medical History Adnexal mass Altered mental status Asthma with exacerbation Cellulitis of right wrist Hematuria History of nephrolithotomy with removal of calculi Hyperparathyroidism Multiple thyroid nodules Ovarian cyst Pneumonia Right flank pain Right nephrolithiasis Septic shock Severe sepsis with acute organ dysfunction Syncopal episodes POSSIBLY DUE TO POTS Syncope UTI (urinary tract infection) Vaginal pruritus Surgical History History of cardiac catheterization x2 History of cholecystectomy History of eye surgery History of loop recorder History of tubal ligation S/P hysterectomy S/P right oophorectomy Family History Other Alzheimer disease Bipolar 1 disorder Dementia Family history of diabetes mellitus type II Family history of myocardial infarction Lung cancer Lupus Social History (Updated 02/04/25 @ 14:12 by Tito Collins RN) Smoking Status: Never smoker second hand exposure: No alcohol intake: never substance use type: denies use current occupational status: unemployed and disabled Travel in the last 8 weeks: None household members: spouse housing: house current occupational exposures/hazards: No caffeine: Yes Have you lived/traveled outside [place] in past 30 days?: No Contact w/someone who lives/traveled outside US past 30 days?: No Exposure to someone with infectious disease in past 14 days?: No Do you have a fever (greater than 100.4 F or 38 C)?: No Have you tested positive for COVID-19: No Exposed to someone with COVID-19 in past 14 days?: No Do you have a sore throat?: No Do you have a cough?: No Do you have any weakness?: No Do you have any diarrhea?: No Are you experiencing any unusual bleeding?: No Do you have any muscle aches/pain?: No Do you have any abdominal pain?: Yes Are you experiencing loss of taste or smell?: No Other Medical History Have you received the Flu Vaccine for this season: No Have you received the Pneumonia Vaccine: Yes (had allergic reaction to vaccine) <Jose Alejandro Kim MD - Last Filed: 02/04/25 23:16> ROS Obtained: Yes All systems reviewed & no additional complaints except as documented Physical Exam <Jose Alejandro Kim MD - Last Filed: 02/04/25 23:16> General General appearance: alert, in distress and obese Head Head exam: atraumatic and normocephalic Eye Eye exam: Present normal appearance, PERRL and EOMI Neck Neck exam: Present normal inspection, full ROM and trachea midline Respiratory Respiratory exam: Absent respiratory distress, wheezes, stridor, accessory muscle use or prolonged expiratory phase Cardiovascular Cardiovascular exam: Present other (Pulses equal symmetric in upper and lower extremities) Abdominal Exam Abdominal exam: Present soft; Absent distention, tenderness or pulsatile mass Extremities Exam Extremities exam: Absent edema Neurological Exam Neurological exam: Present alert, oriented X3 and CN II-XII intact; Absent motor sensory deficit Skin Skin exam: Present warm and dry; Absent diaphoresis or erythema Medical Decision Making <Jose Alejandro Kim MD - Last Filed: 02/04/25 23:16> Medical Records Medical records reviewed: Yes I reviewed the patient's medical records. Screening: Per USPSTF and CDC recommendations, given the prevalence of disease in our region, it is our hospital?s policy to screen for HIV and viral Hepatitis for all patients aged 18 and over and those with ongoing risk factors. Harjinder Inquiry Pt receiving controlled substance: No Harjinder was queried for this patient: No Vital Signs: 02/04/25 21:50 02/04/25 22:00 02/04/25 23:04 Temperature 98.4 F Temperature Source Oral Pulse Rate 56 L 60 Pulse Rate [Right] 58 L Respiratory Rate 20 18 18 Blood Pressure 156/76 H 110/71 Blood Pressure [Right Arm] 131/70 Blood Pressure Mean 96 84 Blood Pressure Mean [Right Arm] 90 Blood Pressure Source Blood Pressure Position 02 Sat by Pulse Oximetry 95 93 L 96 Oxygen Delivery Method Room Air Room Air 02/04/25 23:30 02/05/25 00:09 Temperature 98.7 F Temperature Source Pulse Rate 68 93 H Pulse Rate [Right] Respiratory Rate 18 20 Blood Pressure 113/82 142/90 H Blood Pressure [Right Arm] Blood Pressure Mean 91 Blood Pressure Mean [Right Arm] Blood Pressure Source Automatic Cuff Blood Pressure Position Supine 02 Sat by Pulse Oximetry 90 L Oxygen Delivery Method Room Air Lab Data Lab Results 02/04/25 22:10: Urine Color [place], Urine Appearance Cloudy, Urine pH 5.0, Ur Specific Edgar 1.020, Urine Protein 3+ A, Urine Glucose (UA) 3+, Urine Ketones 1+, Urine Blood 2+ A, Urine Nitrate Positive A, Urine Bilirubin Negative, Urine Urobilinogen >=8.0, Ur Leukocyte Esterase 1+ A, Urine RBC 5-10, Urine WBC 50-100, Ur Squamous Epith Cells 5-10, Urine Bacteria 1+ 02/04/25 22:37: WBC 12.5 H D, RBC 5.44 H, Hgb 15.1, Hct 46.5, MCV 85.5, MCH 27.8, MCHC 32.5, RDW 13.3, Plt Count 351, MPV 9.5, Neut % (Auto) 77.9, Lymph % (Auto) 16.5, Miner % (Auto) 4.6, Eos % (Auto) 0.2, Baso % (Auto) 0.4, Neut # (Auto) 9.8 H, Lymph # (Auto) 2.1, Miner # (Auto) 0.6, Eos # (Auto) 0.0, Baso # (Auto) 0.1, Sodium 136, Potassium 3.7, Chloride 97 L, Carbon Dioxide 30, Anion Gap 12.7, BUN 6 L, Creatinine 0.60, Estimated Creat Clear 92, Estimated GFR 105, Est GFR ( Amer) 128, Glucose 132 H, Lactate 1.7, Calcium 9.9, Total Bilirubin 0.6, AST 33, ALT 42, Alkaline Phosphatase 100, Total Protein 7.8, Albumin 4.0, Globulin 3.8 H, Albumin/Globulin Ratio 1.1 02/04/25 22:37 02/04/25 22:37 Orders (Tests/Meds): ED MEDICATIONS Discontinued Medications Generic Name Dose Route Start Last Admin Trade Name Freq PRN Reason Stop Dose Admin Hydromorphone HCl 1 mg 02/04/25 22:15 02/04/25 22:33 Hydromorphone 2mg/Ml Syringe IV 02/04/25 22:16 1 mg ONCE ONE Administration Ketorolac Tromethamine 15 mg 02/04/25 22:15 02/04/25 22:33 Ketorolac 30mg/Ml Vial IV 02/04/25 22:16 15 mg ONCE ONE Administration Ondansetron HCl 4 mg 02/04/25 22:10 02/04/25 22:18 Ondansetron 4mg/2ml Vial IV 02/04/25 22:11 4 mg ONCE ONE Administration ORDERS Category Date Time Status CT abdomen pelvis wo con Stat Cat Scan 02/04/25 22:15 Completed CBC w/Auto Diff [Complete Blood Count Auto Diff] Stat Lab 02/04/25 22:37 Completed CMP [Comprehensive Metabolic Panel] Stat Lab 02/04/25 22:37 Completed Lactic Acid Stat Lab 02/04/25 22:37 Completed UA [Urinalysis and Microscopic] Stat Lab 02/04/25 22:10 Completed Blood Culture Stat Micro 02/04/25 22:35 Received Urine Culture Stat Micro 02/04/25 22:10 Received Medical Decision Narrative: 49-year-old female history of staghorn calculus and biotic resistant UTI presenting with pain. She states that she has been treated with IV antibiotics outpatient and was told to come back if she has worsening pain. Pain started getting worse today, 02/04. Severe, does not radiate, associate with hematuria. States that she cannot stand the pain it is causing her to vomit. No fever chills or systemic signs or symptoms. History obtained with patient. On arrival, uncomfortable, retching. Abdomen is soft, flank is nontender, patient is nontachycardic and normotensive. History was obtained via conversation with patient and chart review differential includes urinary tract infection, septic stone, sepsis, obstruction, among others. Patient was placed on engine monitor with initial blood pressure 131/70 and pulse rate 58. O2 sat 95% on room air on continuous pulse oximetry. She was given Toradol, Zofran, Dilaudid. Labs obtained, leukocytosis 12.5 uptrending from just yesterday. Urinalysis with blood and nitrates. Patient received IV today already, ertapenem. Reevaluation, patient feeling a lot better after meds. CT scan with large left-sided staghorn calculus. Kidney function pending at time of handoff to oncoming physician. Patient likely needing transferred for intervention. Carpet Repairer disclaimer Much of this encounter note is an electronic movement assembly final inspector spoken language to printed text. Electronic movement assembly final inspector of the spoken language may permit errors. Although I have reviewed the note, some errors may still exist. <Gennaro Cuevas MD - Last Filed: 02/05/25 01:20> Vital Signs: 02/04/25 21:50 02/04/25 22:00 02/04/25 23:04 Temperature 98.4 F Temperature Source Oral Pulse Rate 56 L 60 Pulse Rate [Right] 58 L Respiratory Rate 20 18 18 Blood Pressure 156/76 H 110/71 Blood Pressure [Right Arm] 131/70 Blood Pressure Mean 96 84 Blood Pressure Mean [Right Arm] 90 Blood Pressure Source Blood Pressure Position 02 Sat by Pulse Oximetry 95 93 L 96 Oxygen Delivery Method Room Air Room Air 02/04/25 23:30 02/05/25 00:09 Temperature 98.7 F Temperature Source Pulse Rate 68 93 H Pulse Rate [Right] Respiratory Rate 18 20 Blood Pressure 113/82 142/90 H Blood Pressure [Right Arm] Blood Pressure Mean 91 Blood Pressure Mean [Right Arm] Blood Pressure Source Automatic Cuff Blood Pressure Position Supine 02 Sat by Pulse Oximetry 90 L Oxygen Delivery Method Room Air Lab Data Lab Results 02/04/25 22:10: Urine Color [place], Urine Appearance Cloudy, Urine pH 5.0, Ur Specific Edgar 1.020, Urine Protein 3+ A, Urine Glucose (UA) 3+, Urine Ketones 1+, Urine Blood 2+ A, Urine Nitrate Positive A, Urine Bilirubin Negative, Urine Urobilinogen >=8.0, Ur Leukocyte Esterase 1+ A, Urine RBC 5-10, Urine WBC 50-100, Ur Squamous Epith Cells 5-10, Urine Bacteria 1+ 02/04/25 22:37: WBC 12.5 H D, RBC 5.44 H, Hgb 15.1, Hct 46.5, MCV 85.5, MCH 27.8, MCHC 32.5, RDW 13.3, Plt Count 351, MPV 9.5, Neut % (Auto) 77.9, Lymph % (Auto) 16.5, Miner % (Auto) 4.6, Eos % (Auto) 0.2, Baso % (Auto) 0.4, Neut # (Auto) 9.8 H, Lymph # (Auto) 2.1, Miner # (Auto) 0.6, Eos # (Auto) 0.0, Baso # (Auto) 0.1, Sodium 136, Potassium 3.7, Chloride 97 L, Carbon Dioxide 30, Anion Gap 12.7, BUN 6 L, Creatinine 0.60, Estimated Creat Clear 92, Estimated GFR 105, Est GFR ( Amer) 128, Glucose 132 H, Lactate 1.7, Calcium 9.9, Total Bilirubin 0.6, AST 33, ALT 42, Alkaline Phosphatase 100, Total Protein 7.8, Albumin 4.0, Globulin 3.8 H, Albumin/Globulin Ratio 1.1 Orders (Tests/Meds): ED MEDICATIONS Discontinued Medications Generic Name Dose Route Start Last Admin Trade Name Rustamq PRN Reason Stop Dose Admin Hydromorphone HCl 1 mg 02/04/25 22:15 02/04/25 22:33 Hydromorphone 2mg/Ml Syringe IV 02/04/25 22:16 1 mg ONCE ONE Administration Ketorolac Tromethamine 15 mg 02/04/25 22:15 02/04/25 22:33 Ketorolac 30mg/Ml Vial IV 02/04/25 22:16 15 mg ONCE ONE Administration Ondansetron HCl 4 mg 02/04/25 22:10 02/04/25 22:18 Ondansetron 4mg/2ml Vial IV 02/04/25 22:11 4 mg ONCE ONE Administration ORDERS Category Date Time Status CT abdomen pelvis wo con Stat Cat Scan 02/04/25 22:15 Completed CBC w/Auto Diff [Complete Blood Count Auto Diff] Stat Lab 02/04/25 22:37 Completed CMP [Comprehensive Metabolic Panel] Stat Lab 02/04/25 22:37 Completed Lactic Acid Stat Lab 02/04/25 22:37 Completed UA [Urinalysis and Microscopic] Stat Lab 02/04/25 22:10 Completed Blood Culture Stat Micro 02/04/25 22:35 Received Urine Culture Stat Micro 02/04/25 22:10 Received Medical Decision Narrative: 49-year-old female history of staghorn calculus and biotic resistant UTI presenting with pain. She states that she has been treated with IV antibiotics outpatient and was told to come back if she has worsening pain. Pain started getting worse today, 02/04. Severe, does not radiate, associate with hematuria. States that she cannot stand the pain it is causing her to vomit. No fever chills or systemic signs or symptoms. History obtained with patient. On arrival, uncomfortable, retching. Abdomen is soft, flank is nontender, patient is nontachycardic and normotensive. History was obtained via conversation with patient and chart review differential includes urinary tract infection, septic stone, sepsis, obstruction, among others. Patient was placed on engine monitor with initial blood pressure 131/70 and pulse rate 58. O2 sat 95% on room air on continuous pulse oximetry. She was given Toradol, Zofran, Dilaudid. Labs obtained, leukocytosis 12.5 uptrending from just yesterday. Urinalysis with blood and nitrates. Patient received IV today already, ertapenem. Reevaluation, patient feeling a lot better after meds. CT scan with large left-sided staghorn calculus. Kidney function pending at time of handoff to oncoming physician. Patient likely needing transferred for intervention. Carpet Repairer disclaimer Much of this encounter note is an electronic movement assembly final inspector spoken language to printed text. Electronic movement assembly final inspector of the spoken language may permit errors. Although I have reviewed the note, some errors may still exist. Faith URIBE: I assumed care of the patient at the time of handoff from the prior provider. On reassessment patient reports improvement in pain, no longer nauseous, drinking without difficulty. I had extensive and repeated discussion with patient regarding her presentation. Overall, her primary reason for presentation tonight is worsening pain. Her workup shows that she has a mild leukocytosis and continues to have a UTI. Given the shift in the location of the stone noted on CT imaging, I think that is the most likely cause of her pain. She has no evidence of obstruction at this time however despite the stone. I discussed with her transfer for expedited management or continued antibiotics at home and follow-up with her urologist. She is worried that she is not getting better and would like to see if she could be evaluated more quickly. We called [facility] who reported they only have a wait list, we also called who is on divert. I communicated this with the patient and she reports that she would prefer to go home with as needed pain management and to continue with the IV antibiotics for now. She is going to call her PCP to have the ertapenem extended tomorrow. I prescribed her a short course of Toradol and oxycodone for breakthrough pain. She was discharged in stable condition with return precautions and instructions regarding symptomatic care. Critical Care <Jose Alejandro Kim MD - Last Filed: 02/04/25 23:16> Critical Care Time Critical Care Time: No
[2025-02-04 23:25] LABS: Bacteria,Urine 1+ /lpf; WBC,Urine 50-100 #/hpf (0-3)
[2025-02-04 23:30] VITALS: BP 113/82; PULSE 68; RESP 18; O2SAT 90
--- NOTE | 2025-02-04 23:53 | PC.NURSE ---
called [facility] for a possible transfer to [place]
--- NOTE | 2025-02-04 23:58 | PC.NURSE ---
called [facility] for possible transfer for pt
[2025-02-05 00:09] VITALS: BP 142/90; PULSE 93; RESP 20; TEMP 37.1; O2SAT 98
== END 2025-02-05 00:14 | disposition home or self-care (01) ==
PROVIDERS: Emergency Medicine; Emergency Provider Emergency Medicine; PCP Internal Medicine
DX: R10.9 Unspecified abdominal pain (principal); N39.0 Urinary tract infection, site not specified; N20.0 Calculus of kidney; R11.2 Nausea with vomiting, unspecified
CPT/HCPCS: 96374; 96375; 99285; 74176; 80053; 81001; 83605; 85025; 87040; 87086; J1171; J1885; J2405

== ENCOUNTER 2025-02-05 12:59 | Outpatient (CLI) | payer OTHER, SELFPAY ==
[2025-02-05] MEDS: ERTAPENEM SODIUM 1 GM in 0.9 % SODIUM CHLORIDE 50 ML IV (13:30)
[2025-02-05 13:50] VITALS: BP 116/65; PULSE 76
[2025-02-05] MEDS: SODIUM CHLORIDE 0.9% 10ML FLUSH SYRINGE 10 ML IV (14:14)
[2025-02-05] MEDS: SODIUM CHLORIDE 0.9% 50ML BAG 50 ML IV (14:17)
== END 2025-02-05 14:30 | disposition home or self-care (01) ==
LOC: INF 13:00
PROVIDERS: PCP Internal Medicine; Visit Provider Nurse Practitioner Family
DX: A41.9 Sepsis, unspecified organism (principal); R65.21 Severe sepsis with septic shock
CPT/HCPCS: 96365; J1335

== ENCOUNTER 2025-02-06 18:42 | Emergency (ER) | payer OTHER, SELFPAY ==
[2025-02-06 18:53] VITALS: BP 124/74; PULSE 71; RESP 19; TEMP 36.7; O2SAT 95; BMI 49.6
--- OUTSIDE RECORDS SUMMARY | 2025-02-06 18:54 | XMS_ITS | Data Portability ---
Author Organization [facility] Alejandro ADMIN Address [address] [place] [address] Care Team Providers Care Community Support Specialist Name Role Phone ZAHRAA BENAVIDES Primary Care Provider Assessment Encounter Date Assessment Date Assessment LastModified by Organization Details LastModified Time 08/07/2023 08/07/[address] scan images onto our system. Will review to determine the degree of stone burden bilaterally in the kidneys. Will also plan cystoscopy and pelvic exam in the office in the near future. [email or web address] Not available 08/07/2023 15:34:46 09/25/2023 09/25/2023 I [...] in 6 months with KUB and UA. [email or web address] Not available 09/25/2023 15:29:09 Plan of Treatment Reminders Order Date Submit Date Provider Last Modified By Organization Details Last Modified Time Details Appointments None recorded. Lab urinalysis , dipstick 2022 023 [email or web address] [facility], [address] [place] [address], [address], [place], [address], 16:08:29 Referral None recorded. Procedures multiple sleep latency testing (PROC) 2021 [facility] (Central Scheduling), [address] [place] [address] [place], [address], 10:58:13 Surgeries None recorded. Imaging polysomnog coby - Needs PSG followed by MSLT 2021 [facility] (Central Scheduling), [address] [place] [address] [place], [address], 12:08:08 electroenc ephalogram 2021 [facility] (Centralized Scheduling), [address] , [place], [address], 10:13:19 Medication Orders None recorded. Patient TargetsNo [...] - 58.5 Perfo rmed at: - [facility] [address] [place] [address] Lab Direc tor: Los carson PhD, Phone : [phone] Not Available [facility] ([facility]) [address] , [place], [address], 04/03/2023 10:13:10 04/02/20 23 04/03/2023 FSH FSH, serum 5.4 mIU/m L Adult Femal e: Folli cular phase 3.5 - 12.5 Ovula tion phase 4.7 - 21.5 Lutea l phase 1.7 - 7.7 Postm enopa usal 25.8 - 134.8 Perfo rmed at: - [facility] [address] [place] [address] Lab Direc tor: Los carson PhD, Phone : [phone] Not Available [facility] ([facility]) [address] [facility], [place], [address], 04/03/2023 10:14:16 08/07/20 23 08/07/2023 urina lysis , dipst ick Leukocytes (reference range) trace Not Available [facility] [address] [facility], [place], [address], 08/07/2023 15:15:15 08/07/2008/07/2023 urina lysis , dipst ick Nitrite (reference range:) negati ve Not Available [facility] [address] [facility], [place], [address], 08/07/2023 15:15:15 08/07/2008/07/2023 urina lysis , dipst ick Urobilinogen (reference range) 0.2 Not Available [facility] [address] [place] [address], [address], 08/07/2023 15:15:15 08/07/20 23 08/07/2023 urina lysis , dipst ick Protein (reference range) negati ve Not Available Central [address] [facility], [place], [address], 08/07/2023 15:15:15 08/07/2008/07/2023 urina lysis , dipst ick pH (reference range 5-8.5) 6.0 Not Available [facility] [place] [address], [address], 08/07/2023 15:15:15 08/07/20 23 08/07/2023 urina lysis , dipst ick Blood (reference range:) small Not Available [address], [place], [address], 08/07/2023 15:15:15 08/07/2008/07/2023 urina lysis , dipst ick Specific [place] (reference range) 1.015 Not Available [address], [place], [address], 08/07/2023 15:15:15 08/07/2008/07/2023 urina lysis , dipst ick Ketone (reference range) negati ve Not Available [address], [place], [address], 08/07/2023 15:15:15 08/07/2008/07/2023 urina lysis , dipst ick Bilirubin (reference range) negati ve Not Available [address] [facility], [place], [address], 08/07/2023 15:15:15 08/07/2008/07/2023 urina lysis , dipst ick Glucose (reference range) 250 Not Available [address], [place], [address], 08/07/2023 15:15:15 08/07/2008/07/2023 urina lysis , dipst ick Color (reference range: yellow-brown ) Yellow Not Available [address], [place], [address], 08/07/2023 15:15:15 Result Notes None recorded. Problems Name Problem SNOMED Code Status Onset Date Resolution Date Notes Provider Name and Address Organization Details Recorded Time Syncope 754197644 Active 2021 Malina Hernandez, DO [address], [place], [address] , [place] - [facility] [place] & [place] 15:33:04 Hypersomnia 67590374 Active 2021 Malina Hernandez, DO [address], [place], [address] , [place] [facility] [place] & [place] 15:34:08 Problem Notes None recorded. 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 Procedure Notes None recorded. Medical Equipment None Reported. Allergies Allergen ID Allergen Name Allergen Category Reaction Reaction Severity Criticality Documentation Date Start Date Code Code System Note Provider Name and Address Organization Details Recorded Time 72141 aspirin medicatio n chest pain wheezing moderate severe Not available 10/02/2022 1191 RxNorm Vandana catherine, [place] [facility] & [place] 09:22:42 04660 Bactrim medicatio n arthralgi a (joint pain) muscle cramps severe severe Not available 10/02/2022 11131 9 RxNorm Vandana catherine, RAF[facility] DARL[facility] & [place] 2 09:22:49 00105 insect venom environme nt confusion cough dizziness fever flushing headache wheezing moderate moderate moderate mild moderate moderate moderate Not available 10/02/2022 66511 UNK Vandana catherine, RAFITA DARL[facility] & [place] 2 09:23:13 93122 Pneumococ georges vaccine Not available anaphylax is chest pain facial swelling nausea rash wheezing moderate moderate moderate moderate moderate moderate Not available 10/02/2022 87305 7 RxNorm Vandana catherine, RAFITA DARLING [facility] & [place] 2 09:23:25 00399 rosuvasta tin medicatio n eye swelling facial swelling respirato ry distress moderate moderate moderate Not available 10/02/2022 48533 2 RxNorm Vandana catherine, RAFITA DARLING [facility] & [place] 2 09:23:35 Medications Name Sig Start Date [...] % 2 L/min 89 /min 48.3 kg/m2 140763. 39 g 128 mm[Hg] 98 mm[Hg] Phillip ELLER - [facility] & [place] 3 13:04:48 Date Recorded Body height Body mass index (BMI) Body weight Systolic blood pressure Diastolic blood pressure Provider Name and Address Organization Details Last Updated DateTime 08/07/2023 157.48 cm 49.4 kg/m2 628475.9 4 g 125 mm[Hg] 75 mm[Hg] Britney Yee [place] - [facility] & [place] 3 15:05:24 Date Recorded Body height Body mass index (BMI) Body weight Systolic blood pressure Diastolic blood pressure Provider Name and Address Organization Details Last Updated DateTime 09/25/2023 157.48 cm 51.2 kg/m2 266644.8 6 g 126 mm[Hg] 76 mm[Hg] Ioana Ayala [facility] & [place] 3 15:07:04 Date Recorded Body height Body mass index (BMI) Body weight Oxygen saturation Oxygen saturation in Arterial blood by Pulse oximetry Heart rate Systolic blood pressure Diastolic blood pressure Provider Name and Address Organization Details Last Updated DateTime 2 157.48 cm 48.5 kg/m2 342666. 98 g 98 % 98 % 85 /min 94 mm[Hg] 62 mm[Hg] Vandana ELLER [facility] & [place] 2 14:30:48 Social History Question Answer Notes LastModified by [employer] Details LastModified Time Tobacco Smoking Status Never [facility]oker [facility] [place] 10/03/2022 14:32:09 Do You Have An Advance Directive? No Information not available 10/03/2022 What Is Your Level Of Alcohol Consumption? Occasional Information not available 10/03/2022 Are You Blind Or Do You Have Difficulty Seeing? No Information not available 10/03/2022 Are You Currently Employed? No [employer] [email or web address] Information not available 09/25/2023 What Was The Date Of Your Most Recent Tobacco Screening? 09/17/2022 Information not available 10/03/2022 Do You Have Any Pets? Yes Information not available 09/25/2023 Are You Passively Exposed To Smoke? No Information not available 10/03/2022 Do You Feel Stressed (tense, Restless, Nervous, Or Anxious, Or Unable To Sleep At Night)? [id number] Information not available 10/03/2022 Do You Use Any Illicit Or Recreational Drugs? No Information not available 10/03/2022 Are You Currently In School? No [employer] [email or web address] Information not available 09/25/2023 Sex: Female Functional Status Question Answer Note LastModified by [employer] Details LastModified Time What is your exercise [...] available 09/17/2022 11:27:51 Medical History Condition Response Diabetes Y Autoimmune disease Y Obesity Y Arthritis Y Kidney Stones Y Head Injury/Concussion Y Congestive Heart Failure (CHF) Y Back Problems Y Asthma Y COPD Y Lung Disease Y GI Problems Y Pneumonia Y Anemia Y Reflux/GERD Y High Cholesterol Y Spine Problems Y Rheumatoid Arthritis Y Headaches Y Hypertension [...] SNOMED-CT Code Diagnosis ICD10 Code Diagnosis Note [id number] [facility] [address] [facility],[address] [place] [address] 10/03/2022 14:07:23 10/03/2022 15:38:25 Syncope 669657118 R55 She has been experienci ng these stereotypi georges passing out episodes for five years. No definite witnessed convulsion s but some associated brief confusion afterwards .will order EEG to rule out neurologic causes of syncope Hypersomnia 84786141 G47 .10 She describes some significan t episodes of pathologic al sleepiness . She will fall asleep without warning in the middle of talking. This is very infrequent but can be suggestive of narcolepsy . Will order PSG with MSLT to evaluate this in more detail. [id number] Micheline Lackey MD [facility] General Surgery [address] [place] [address] 04/02/2023 12:53:55 04/02/2023 13:53:12 Pelvic mass 61281606 R19.00 Possible lymphocele versus ovarian remnant from [...] patient with lab levels and consider further NON PROFIT JOB TITLES follow up. [id number] Silvio Valdez MD [facility]rology [address] [place] [address],[facility] [address] [place] [address] 08/07/2023 14:35:57 08/07/2023 15:40:17 Recurrent urinary tract infection 202551995 N39.0 Kidney stone 75886752 N2 0.0 Chronic th oracic back pain 6355042578 66895 M54.6 Microscopic hematuria 19 6397347 R31.29 [id number] Silvio Valdez MD [facility] Urology [address] [place] [address],[facility] [address] [place] [address] 09/25/2023 14:26:57 09/25/2023 15:25:02 Recurrent urinary tract infection 614546805 N39.0 Kidney stone 30207852 N2 0.0 Microscopic hematuria 19 8900003 R31.29 Health Concerns Section Related Observation LastModified by Organization Detai ls LastModified Time None Recorded Concern Status LastModified by Organization Details LastModified Time None Recorded Advance Directives Directive N: Payers Encounter Date Sequence Insurance Name Policy Number Policy Valdivia Covered Member ID Valdivia Member ID Guarantor Name 10/03/2022 1 [facility] [id number] Lissy [place] 04/02/2023 1 [employer] [facility] (MEDICAID HMO) [facility] [id number] [facility] 08/07/2023 1 [employer] [facility] (MEDICAID HMO) [facility] [id number] [facility] 09/25/2023 1 [employer] [facility] (MEDICAID HMO) [facility] [id number] [facility] Notes Date Note Type Note Provider [...] but seem to be infrequent. 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 Malina Hernandez, DO [address] , [place], [address], [place] [facility] [place] 10/04/2022 10:12:03 04/02/2023 text/html 47-year-old curt n referred for a right pelvic fluid collection. Patient had hysterectomy, right salpingo-oophorectom y in 2021. She has undergone imaging on several occasions since then for some occasional, dull, aching right flank pain. She has a 7.4 cm right adnexal fluid collection that has enlarged somewhat over time. Patient states she is seen her metal buffer for this, was told it is possibly a lymphocele. Micheline Lackey MD [address], [place], [address], [facility] & [place] 04/18/2023 12:50:43 08/07/2023 text/html Location: Histor y [...] hysterectomy. Silvio Valdez MD [address], [place], [address], [facility] & [place] 08/07/2023 15:35:17 09/25/2023 text/html Patient returns to [...] is status post hysterectomy. Silvio Valdez MD [address] [facility], [place], [address], [facility] - [place] & [place] 09/25/2023 15:30:10 OBGyn Episode No OBEpisode recorded.
--- OUTSIDE RECORDS SUMMARY | 2025-02-06 18:54 | XMS_ITS | Data Portability ---
Author Organization [facility] Mahamed lomeli, [facility] Address [address] [facility] [place] [address] Assessment No assessment recorded. Plan of Treatment Reminders Order Date Submit Date Provider Last Modified By Organization Details Last Modified Time Details Appointments None recorded. Lab None recorded. Referral aquatic therapy referral 2017 018 [email or web address] 2 Not available 8 11:14:18 cognitive behavioral therapy referral 2017 018 [email or web address] 2 [facility] [address] [facility], [address], [place], [address], 8 11:14:19 occupationa l therapist referral 2017 018 [email or web address] 2 Not available 8 11:14:17 Procedures None recorded. Surgeries None recorded. Imaging None recorded. Medication Orders None recorded. Patient TargetsNo targets recorded. Patient Instructions Encounter Date Encounter Id Patient Instructions Last Modified By Organization Details Last Modified Time 08/13/2018 [id number] learning about healthy weight Not available 08/13/2018 [...] Name and Address Organization Details Recorded Time 395467 aspirin medicatio n Not available Not available Not available 08/13/2018 1191 RxNorm Melinad Hudson [facility] 8 10:01:54 Medications Name Sig Start Date [...] Address Organization Details Last Updated DateTime 8 577676. 12 g 48.2 kg/m2 160.02 cm 18 /min 61 /min 132 mm[Hg] 96 mm[Hg] Melinda Hudson [facility] 8 10:06:40 Social History Question Answer Notes LastModified by Organizat ion Details LastModified Time Tobacco Smoking Status Never Smoker Melinda Hudson [facility] 08/13/2018 10:02:03 What Was The Date Of Your Most Recent Tobacco Screening? 08/13/2018 Information n ot available 12/15/2019 Sex: Unknown Functional Status None recorded. Mental Status None recorded. Family History Relationship Description Onset Age of this Age Resolved Age Notes LastModified by Organization Details LastModified Time Father No current problems or disability [email or web address] Not available 08/13 10:02:01 Mother No current problems or disability [email or web address] Not available 08/13 10:02:01 Medical History Condition Response Diabetes N Bleeding Disorder N Arthritis Y Emphysema N Acid Reflux (GERD) Y Heart Disease Y Rheumatoid Arthritis N Hypertension Y COPD N Asthma Y Gynecological HistoryNo gynecological history recorded. Obstetrics History GPAL:G 0 P 0 0 0 0 Past Encounters Encounter ID Performer Location Encounter Start Date Encounter Closed Date Diagnosis/Indication Diagnosis SNOMED-CT Code Diagnosis ICD10 Code Diagnosis Note [id number] CLIFF BARBER MD [facility] [address] [place] [address] 08/13/2018 09:13:44 08/13/2018 10:48:47 Multiple joint pain 62212643 M25.50 she has clinical features of [place] OA. no features of an inflammato ry arthritis noted. no features of rheumatoid noted. 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 would suggest to avoid steroids and start OT as stated below. she can RTC with me as prn. 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 Health Concerns Section Related Observation LastModified by Organization Detai ls LastModified Time None Recorded Concern Status LastModified by Organization Details LastModified Time None Recorded Advance Directives Directive None Recorded Payers Encounter Date Sequence Insurance Name Policy Number Policy Valdivia Covered Member ID Valdivia Member ID Guarantor Name 08/13/2018 1 [employer] [employer] [place] [id number] Lissy Valdez [id number] Lissy Valdez Notes Date Note Type Note [...] and a normal TSH. CLIFF BARBER MD [address] [place] [address], [address], [facility] 08/13/2018 17:00:47 OBGyn Episode No OBEpisode recorded.
--- NOTE | 2025-02-06 19:09 | HMH.EDGENADL ---
Discharge Plan Disposition Patient Disposition: Home, Self-Care Condition: Good Prescriptions Prescriptions: No Action spironolactone [Aldactone] 50 mg tablet 50 mg PO DAILY Entresto 24-26 mg tablet 1 tab PO BID (DME) OneTouch Verio test strips Strip See Rx Instructions .Route Qty: 300 1RF Rx Instructions: As directed methenamine hippurate 1 gram tablet 1 g PO BID Qty: 60 5RF bumetanide 2 mg tablet 2 mg PO BID Qty: 90 0RF empagliflozin 25 mg tablet 25 mg PO DAILY Qty: 90 1RF oxybutynin chloride 5 mg tablet 5 mg PO BID PRN (Reason: bladder spasms) Qty: 60 1RF albuterol sulfate [ProAir HFA] 90 mcg/actuation HFA aerosol inhaler 2 puff IH Q4HP PRN (Reason: Shortness Of Breath) omeprazole 20 mg capsule,delayed release(DR/EC) 20 mg PO DAILY pravastatin 40 mg tablet 40 mg PO HS Qty: 90 1RF tramadol 50 mg tablet 50 mg PO Q6H PRN (Reason: pain) Qty: 120 0RF sennosides [senna] 8.6 mg tablet 8.6 mg PO BID PRN (Reason: constipation) Qty: 30 0RF hydrocodone-acetaminophen 7.5-325 mg tablet 1 tab PO Q4-6H PRN (Reason: pain) 7 Days Qty: 28 0RF metformin 500 mg tablet 500 mg PO BID Rx Instructions: TAKE ONE TABLET BY MOUTH TWICE DAILY ibuprofen 800 mg tablet 800 mg PO TID PRN (Reason: Pain) Rx Instructions: TAKE ONE TABLET BY MOUTH THREE TIMES DAILY NEEDED WITH FOOD ascorbic acid (vitamin C) [Vitamin C] 500 mg tablet 500 mg PO BID Rx Instructions: TAKE ONE TABLET BY MOUTH TWICE DAILY montelukast 10 mg tablet 10 mg PO HS Rx Instructions: TAKE ONE TABLET BY MOUTH EVERY DAY AT BEDTIME FOR ASTHMA cholecalciferol (vitamin D3) 125 mcg (5,000 unit) capsule 5,000 unit PO Q48H Mounjaro 2.5 mg/0.5 mL pen injector 2.5 mg SQ WEEKLY Rx Instructions: for 4 weeks oxycodone-acetaminophen 5-325 mg tablet 1 tab PO Q6H PRN (Reason: pain) Qty: 11 0RF oxycodone 5 mg tablet 5 mg PO Q8H PRN (Reason: pain) Qty: 12 0RF ketorolac 10 mg tablet 10 mg PO Q6H PRN (Reason: pain) 5 Days Qty: 20 0RF nebivolol 5 MG tablet 5 mg PO DAILY cetirizine [Zyrtec] 10 mg Tablet 10 mg PO DAILY Referrals Follow up/Referrals: Juarez Griffin MD [Primary Care Provider] - See instructions Activity Restrictions/Add. Instructions Additional Instructions/Restrictions: Follow-up with PCP Clinical Impressions Clinical Impression: PIC line (peripherally inserted central catheter) removal Print Language Print Language: [place] Discharge ED Provider: Da Draper General Adult HPI <Ruma Willoughby ([facility]), CHRISTIAN EDUCATION DIRECTOR - Last Filed: 02/06/25 19:16> General Chief complaint: Recheck/Abnormal Lab/Rx Stated complaint: leaking pic line in left arm Time Seen by Provider: 02/06/25 19:00 Mode of Arrival: Wheelchair Source of Information: Patient and Spouse Description of Symptoms (Recalled from ER Triage Doc. by RN): pt presents to ED for leaking piccline. pt states that she was at [facility] just Prior to arrival. pt reports that she went to [facility] for a known staghorn renal stone. pt reports that she does receive invanz thru piccline. pt went to [facility] due to pain. pt states that while in their ER she was receiving normal saline infusion when her picc began leaking. pt reports that [facility] discharged her to come to this ED for dressing change, picc line was placed here. History of Present Illness HPI narrative: 49-year-old female presents for a leaking PICC line. Patient states she was at [facility] prior to arrival here for a kidney stone and while there received IV fluids and morphine through the PICC line and as the IV fluids was running she noticed they were running down her arm. Patient states she informed the nurse that it was leaking and the nurse told her she would have to come back to where the PICC line was placed to have them evaluated. Patient states she has a PICC line because she was getting IV Invanz for a kidney infection and she has finished the course but the PICC was left in case the antibiotic did not get rid of all the infection. Related Data Home Medications ?Medication ?Instructions ?Recorded ?Confirmed nebivolol 5 mg tablet 5 mg PO DAILY 12/21/21 02/04/25 albuterol sulfate 90 mcg/actuation 2 puff inhalation Q4HP PRN 12/28/21 02/04/25 aerosol inhaler (ProAir HFA) Shortness Of Breath spironolactone 50 mg tablet 50 mg PO DAILY 03/30/22 02/04/25 (Aldactone) omeprazole 20 mg capsule,delayed 20 mg PO DAILY 04/24/22 02/04/25 release sacubitril 24 mg-valsartan 26 mg 1 tab PO BID 03/04/23 02/04/25 tablet (Entresto) cetirizine 10 mg tablet (Zyrtec) 10 mg PO DAILY 02/06/24 02/04/25 ascorbic acid (vitamin C) 500 mg 500 mg PO BID 01/27/25 02/04/25 tablet (Vitamin C) cholecalciferol (vitamin D3) 125 5,000 unit PO Q48H 01/27/25 02/04/25 mcg (5,000 unit) capsule ibuprofen 800 mg tablet 800 mg PO TID PRN Pain 01/27/25 02/04/25 metformin 500 mg tablet 500 mg PO BID 01/27/25 02/04/25 montelukast 10 mg tablet 10 mg PO HS 01/27/25 02/04/25 tirzepatide 2.5 mg/0.5 mL 2.5 mg SQ WEEKLY 01/28/25 02/04/25 subcutaneous pen injector (Fadi) Previous Rx's ?Medication ?Instructions ?Recorded blood sugar diagnostic ([facility] #300 ea 09/02/24 Verio test strips) methenamine hippurate 1 gram tablet 1 g PO BID #60 tabs 10/07/24 pravastatin 40 mg tablet 40 mg PO HS #90 tabs 11/11/24 oxycodone-acetaminophen 5 mg-325 1 tab PO Q6H PRN pain #11 tabs 01/29/25 mg tablet tramadol 50 mg tablet 50 mg PO Q6H PRN pain #120 tabs 02/02/25 bumetanide 2 mg tablet 2 mg PO BID #90 tabs 02/03/25 empagliflozin 25 mg tablet 25 mg PO DAILY #90 tabs 02/03/25 hydrocodone 7.5 mg-acetaminophen 1 tab PO Q4-6H PRN pain 7 days #28 02/03/25 325 mg tablet tabs oxybutynin chloride 5 mg tablet 5 mg PO BID PRN bladder spasms #60 02/03/25 tabs sennosides 8.6 mg tablet (senna) 8.6 mg PO BID PRN constipation #30 02/03/25 tabs ketorolac 10 mg tablet 10 mg PO Q6H PRN pain 5 days #20 02/05/25 tabs oxycodone 5 mg tablet 5 mg PO Q8H PRN pain #12 tabs 02/05/25 Allergies Allergy/AdvReac Type Severity Reaction Status Date / Time aspirin Allergy Severe S-DIFF. Verified 02/03/25 13:11 BREATHING bee venom protein (honey bee) Allergy Severe Anaphylaxis Verified 02/03/25 13:11 Bleach (Sodium Hypochlorite) Allergy Severe diff. Verified 02/03/25 13:11 breathing, dizzy amoxicillin (From Augmentin) Allergy Mild Unknown Verified 02/03/25 13:11 allergy reaction clavulanic acid (From Allergy Mild Unknown Verified 02/03/25 13:11 Augmentin) allergy reaction fluconazole (From Diflucan) Allergy Mild Unknown Verified 02/03/25 13:11 allergy reaction levofloxacin (From Levaquin) Allergy Difficulty Verified 02/03/25 13:11 Breathing pneumococcal vaccine Allergy Unknown Verified 02/03/25 13:11 allergy reaction sulfamethoxazole (From Allergy Unknown Verified 02/03/25 13:11 Bactrim) allergy reaction trimethoprim (From Bactrim) Allergy Unknown Verified 02/03/25 13:11 allergy reaction sucralose (From SUCRALOSE AdvReac Severe breathing Verified 02/03/25 13:11 (FOOD/DRUG)) problems [facility] <Ruma Willoughby ([facility]), CHRISTIAN EDUCATION DIRECTOR - Last Filed: 02/06/25 19:16> [facility] Disclaimer: The information contained in this section may have been updated after the patient was seen, as this information can be updated by other users. Medical History , CHRISTIAN EDUCATION DIRECTOR) Right nephrolithiasis UTI (urinary tract infection) Ovarian cyst Hematuria Vaginal pruritus History of nephrolithotomy with removal of calculi Hyperparathyroidism Multiple thyroid nodules Asthma with exacerbation Syncopal episodes Right flank pain Adnexal mass Septic shock Severe sepsis with acute organ dysfunction Cellulitis of right wrist Pneumonia Syncope Altered mental status Surgical History , CHRISTIAN EDUCATION DIRECTOR) History of cardiac catheterization History of loop recorder History of eye surgery History of cholecystectomy S/P right oophorectomy S/P hysterectomy History of tubal ligation Family History , CHRISTIAN EDUCATION DIRECTOR) Lupus Alzheimer disease Dementia Family history of diabetes mellitus type II Family history of myocardial infarction Lung cancer Bipolar 1 disorder Social History , CHRISTIAN EDUCATION DIRECTOR) Smoking Status: Never smoker second hand exposure: No alcohol intake: never substance use type: denies use current occupational status: unemployed and disabled Travel in the last 8 weeks: None household members: spouse housing: house current occupational exposures/hazards: No caffeine: Yes Have you lived/traveled outside [place] in past 30 days?: No Contact w/someone who lives/traveled outside [place] past 30 days?: No Exposure to someone with infectious disease in past 14 days?: No Do you have a fever (greater than 100.4 F or 38 C)?: No Have you tested positive for COVID-19: No Exposed to someone with COVID-19 in past 14 days?: No Do you have a sore throat?: No Do you have a cough?: No Do you have any weakness?: No Do you have any diarrhea?: No Are you experiencing any unusual bleeding?: No Do you have any muscle aches/pain?: No Do you have any abdominal pain?: No Are you experiencing loss of taste or smell?: No Other Medical History Have you received the Flu Vaccine for this season: No Have you received the Pneumonia Vaccine: Yes (had allergic reaction to vaccine) <[facility] Cazares - Last Filed: 02/06/25 19:16> ROS Obtained: Yes Systems reviewed as appropriate & no additional complaints except as documented Physical Exam <[facility] Cazares - Last Filed: 02/06/25 19:16> General General appearance: alert and in no apparent distress Eye Eye exam: Present normal appearance and PERRL ENT ENT exam: Present normal exam Respiratory Respiratory exam: Present normal lung sounds bilaterally Cardiovascular Cardiovascular exam: Present regular rate and normal rhythm Neurological Exam Neurological exam: Present alert and oriented X3 Skin Skin exam: Present warm and intact Expanded Skin Exam Comment: Area around PICC wet under dressing is wet Medical Decision Making <Marnilisette Willoughby ([facility])PREETI - Last Filed: 02/06/25 19:16> Medical Records Medical records reviewed: Yes I reviewed the patient's medical records. Screening: Per USPSTF and CDC recommendations, given the prevalence of disease in our region, it is our hospital?s policy to screen for HIV and viral Hepatitis for all patients aged 18 and over and those with ongoing risk factors. Harjinder Inquiry Pt receiving controlled substance: No Vital Signs: 02/06/25 18:53 02/06/25 19:35 Temperature 98.0 F 98.4 F Temperature Source Oral Oral Pulse Rate 69 Pulse Rate [Left Radial] 71 Respiratory Rate 19 16 Blood Pressure 117/73 Blood Pressure [Right Arm] 124/74 Blood Pressure Mean [Right Arm] 90 Blood Pressure Position Sitting 02 Sat by Pulse Oximetry 95 Oxygen Delivery Method Room Air Orders (Tests/Meds): ORDERS Category Date Time Status Chest XR 2 view (NOT portable) [XR chest 2V] Stat Exams 02/06/25 19:00 Stop Req Medical Decision Narrative: In summary patient is a 49-year-old female who presents to the emergency department for evaluation of PICC line leaking. Patient is hemodynamically stable upon arrival, afebrile. Area around PICC line and dressing wet. Differential diagnosis includes malfunctioning of the PICC line. Since PICC line is leaking and patient has finished a full course of antibiotics we will discontinue PICC line at this time. Given this patient is appropriate for discharge at this time <Da Draper MD - Last Filed: 02/07/25 19:23> Vital Signs: 02/06/25 18:53 02/06/25 19:35 Temperature 98.0 F 98.4 F Temperature Source Oral Oral Pulse Rate 69 Pulse Rate [Left Radial] 71 Respiratory Rate 19 16 Blood Pressure 117/73 Blood Pressure [Right Arm] 124/74 Blood Pressure Mean [Right Arm] 90 Blood Pressure Position Sitting 02 Sat by Pulse Oximetry 95 Oxygen Delivery Method Room Air Orders (Tests/Meds): ORDERS Category Date Time Status Chest XR 2 view (NOT portable) [XR chest 2V] Stat Exams 02/06/25 19:00 Stop Req Medical Decision Narrative: In summary patient is a 49-year-old female who presents to the emergency department for evaluation of PICC line leaking. Patient is hemodynamically stable upon arrival, afebrile. Area around PICC line and dressing wet. Differential diagnosis includes malfunctioning of the PICC line. Since PICC line is leaking and patient has finished a full course of antibiotics we will discontinue PICC line at this time. Given this patient is appropriate for discharge at this time I was consulted by the MARCUS, and we discussed the complexity of the problems being addressed.I approved the treatment and management plan for this patient?s care in the Emergency Department, thus performing a substantive portion of the medical decision making.Signed, Da Draper MD [facility] <Ruma Willoughby ([facility]), CHRISTIAN EDUCATION DIRECTOR - Last Filed: 02/06/25 19:16> Critical Care Time Critical Care Time: No
[2025-02-06 19:35] VITALS: BP 117/73; PULSE 69; RESP 16; TEMP 36.9; O2SAT 96
== END 2025-02-06 19:37 | disposition home or self-care (01) ==
PROVIDERS: Emergency Provider Emergency Medicine; PCP Internal Medicine
DX: T82.534A Leakage of infusion catheter, initial encounter (principal); Z45.2 Encounter for adjustment and management of vascular access device
CPT/HCPCS: 99283

== ENCOUNTER 2025-02-10 16:45 | Outpatient (CLI) | payer OTHER, SELFPAY | END 2025-02-10 23:59 | disposition home or self-care (01) | LOC: LAB.DROPOF 02-11 09:32 | PROVIDERS: PCP Internal Medicine; Visit Provider Internal Medicine | DX: N39.0 Urinary tract infection, site not specified (principal) | CPT/HCPCS: 87086 ==

== ENCOUNTER 2025-02-12 12:37 | Outpatient (CLI) | payer OTHER, SELFPAY ==
--- OUTSIDE RECORDS SUMMARY | 2025-02-12 12:40 | XMS_ITS | Data Portability ---
Author Organization [facility] Alejandro ADMIN Address [address] [place] [address] Care Team Providers Care Product Control And Logistics Analyst Name Role Phone ZAHRAA BENAVIDES Primary Care Provider Assessment Encounter Date Assessment Date Assessment LastModified by Organization Details LastModified Time 08/07/2023 08/07/[address] scan images onto our system. Will review to determine the degree of stone burden bilaterally in the kidneys. Will also plan cystoscopy and pelvic exam in the office in the near future. [email or web address] Not available 08/07/2023 15:34:46 09/25/2023 09/25/2023 I [...] in 6 months with KUB and UA. [email or web address] Not available 09/25/2023 15:29:09 Plan of Treatment Reminders Order Date Submit Date Provider Last Modified By Organization Details Last Modified Time Details Appointments None recorded. Lab urinalysis , dipstick 2022 023 [email or web address] [facility], [address] [place] [address], [address], [place], [address], 16:08:29 Referral None recorded. Procedures multiple sleep latency testing (PROC) 2021 [facility] (Central Scheduling), [address] [place] [address] [place], [address], 10:58:13 Surgeries None recorded. Imaging polysomnog coby - Needs PSG followed by MSLT 2021 [facility] (Central Scheduling), [address] [place] [address] [place], [address], 12:08:08 electroenc ephalogram 2021 [facility] (Centralized Scheduling), [address] , [place], [address], 10:13:19 Medication Orders None recorded. Patient TargetsNo [...] - 58.5 Perfo rmed at: - [facility] [address] [place] [address] Lab Direc tor: Los carson PhD, Phone : [phone] Not Available [facility] ([facility]) [address] , [place], [address], 04/03/2023 10:13:10 04/02/20 23 04/03/2023 FSH FSH, serum 5.4 mIU/m L Adult Femal e: Folli cular phase 3.5 - 12.5 Ovula tion phase 4.7 - 21.5 Lutea l phase 1.7 - 7.7 Postm enopa usal 25.8 - 134.8 Perfo rmed at: - [facility] [address] [place] [address] Lab Direc tor: Los carson PhD, Phone : [phone] Not Available [facility] ([facility]) [address] [facility], [place], [address], 04/03/2023 10:14:16 08/07/20 23 08/07/2023 urina lysis , dipst ick Leukocytes (reference range) trace Not Available [facility] [address] [facility], [place], [address], 08/07/2023 15:15:15 08/07/2008/07/2023 urina lysis , dipst ick Nitrite (reference range:) negati ve Not Available [facility] [address] [facility], [place], [address], 08/07/2023 15:15:15 08/07/2008/07/2023 urina lysis , dipst ick Urobilinogen (reference range) 0.2 Not Available [facility] [address] [place] [address], [address], 08/07/2023 15:15:15 08/07/20 23 08/07/2023 urina lysis , dipst ick Protein (reference range) negati ve Not Available Central [address] [facility], [place], [address], 08/07/2023 15:15:15 08/07/2008/07/2023 urina lysis , dipst ick pH (reference range 5-8.5) 6.0 Not Available [facility] [place] [address], [address], 08/07/2023 15:15:15 08/07/20 23 08/07/2023 urina lysis , dipst ick Blood (reference range:) small Not Available [address], [place], [address], 08/07/2023 15:15:15 08/07/2008/07/2023 urina lysis , dipst ick Specific [place] (reference range) 1.015 Not Available [address], [place], [address], 08/07/2023 15:15:15 08/07/2008/07/2023 urina lysis , dipst ick Ketone (reference range) negati ve Not Available [address], [place], [address], 08/07/2023 15:15:15 08/07/2008/07/2023 urina lysis , dipst ick Bilirubin (reference range) negati ve Not Available [address] [facility], [place], [address], 08/07/2023 15:15:15 08/07/2008/07/2023 urina lysis , dipst ick Glucose (reference range) 250 Not Available [address], [place], [address], 08/07/2023 15:15:15 08/07/2008/07/2023 urina lysis , dipst ick Color (reference range: yellow-brown ) Yellow Not Available [address], [place], [address], 08/07/2023 15:15:15 Result Notes None recorded. Problems Name Problem SNOMED Code Status Onset Date Resolution Date Notes Provider Name and Address Organization Details Recorded Time Syncope 377658248 Active 2021 Malina Hernandez, DO [address], [place], [address] , [place] - [facility] - [place] [facility] [place] 15:33:04 Hypersomnia 62615176 Active 2021 Malina Hernandez, DO [address], [place], [address] , [place] [facility] [place] 15:34:08 Problem Notes None recorded. Procedures Surgical History Date Name Laterality Status Provider Name and Address Organization Details Recorded Time 09/25/20 23 Cystoscopy-Female completed Silvio Valdez MD [address], [place], [address], [place] - [facility] & [place] 09/25/2023 15:26:11 04/04/20 22 Date of Last Pap Smear completed Vandana Beckera [place] [facility] & [place] 10/03/2022 14:31:43 10/28/19 22 Application Support Administrator Surgery completed Vandana Eugenioa [place] [facility] & [place] 10/03/2022 14:45:45 10/28/19 17 Cholecystectomy completed Vandana Eugenioa [place] [facility] & [place] 10/03/2022 14:32:27 10/28/19 14 Other completed Vandana Eugenioa [place] [facility] & [place] 10/03/2022 14:44:51 cardiac catheterization completed Vandana Eugenioa [place] [facility] & [place] 10/03/2022 14:46:31 strabismus surgery completed Vandana Eugenioa [place] [facility] [place] 10/03/2022 14:55:15 Imaging Results None recorded. Procedure Notes None recorded. Medical Equipment None Reported. Allergies Allergen ID Allergen Name Allergen Category Reaction Reaction Severity Criticality Documentation Date Start Date Code Code System Note Provider Name and Address Organization Details Recorded Time 64209 aspirin medicatio n chest pain wheezing moderate severe Not available 10/02/2022 1191 RxNorm Vandana catherine, [place] [facility] & [place] 09:22:42 65572 Bactrim medicatio n arthralgi a (joint pain) muscle cramps severe severe Not available 10/02/2022 01668 9 RxNorm Vandana catherine, [facility] & [place] 2 09:22:49 28232 insect venom environme nt confusion cough dizziness fever flushing headache wheezing moderate moderate moderate mild moderate moderate moderate Not available 10/02/2022 44817 UNK Vandana catherine, [facility] & [place] 2 09:23:13 49022 Pneumococ georges vaccine Not available anaphylax is chest pain facial swelling nausea rash wheezing moderate moderate moderate moderate moderate moderate Not available 10/02/2022 46744 7 RxNorm Vandana catherine, [facility] & [place] 2 09:23:25 73786 rosuvasta tin medicatio n eye swelling facial swelling respirato ry distress moderate moderate moderate Not available 10/02/2022 84100 2 RxNorm Vandana catherine, [facility] & [place] 2 09:23:35 Medications Name Sig Start Date [...] % 2 L/min 89 /min 48.3 kg/m2 682734. 39 g 128 mm[Hg] 98 mm[Hg] Phillip ELLER - [facility] & [place] 3 13:04:48 Date Recorded Body height Body mass index (BMI) Body weight Systolic blood pressure Diastolic blood pressure Provider Name and Address Organization Details Last Updated DateTime 08/07/2023 157.48 cm 49.4 kg/m2 665920.9 4 g 125 mm[Hg] 75 mm[Hg] Britney Yee [place] [facility] & [place] 3 15:05:24 Date Recorded Body height Body mass index (BMI) Body weight Systolic blood pressure Diastolic blood pressure Provider Name and Address Organization Details Last Updated DateTime 09/25/2023 157.48 cm 51.2 kg/m2 217315.8 6 g 126 mm[Hg] 76 mm[Hg] Ioana Ayala [facility] & [place] 3 15:07:04 Date Recorded Body height Body mass index (BMI) Body weight Oxygen saturation Oxygen saturation in Arterial blood by Pulse oximetry Heart rate Systolic blood pressure Diastolic blood pressure Provider Name and Address Organization Details Last Updated DateTime 2 157.48 cm 48.5 kg/m2 187183. 98 g 98 % 98 % 85 /min 94 mm[Hg] 62 mm[Hg] Vandana ELLER [facility] & [place] 2 14:30:48 Social History Question Answer Notes LastModified by [employer] Details LastModified Time Tobacco Smoking Status Never Smoker [facility] [place] 10/03/2022 14:32:09 Do You Have An Advance Directive? No Information not available 10/03/2022 What Is Your Level Of Alcohol Consumption? Occasional Information not available 10/03/2022 Are You Blind Or Do You Have Difficulty Seeing? No Information not available 10/03/2022 Are You Currently Employed? No [employer] Account[employer] Information not available 09/25/2023 What Was The Date Of Your Most Recent Tobacco Screening? 09/17/2022 Information not available 10/03/2022 Do You Have Any Pets? Yes [email or web address] Information not available 09/25/2023 Are You Passively Exposed To Smoke? No Information not available 10/03/2022 Do You Feel Stressed (tense, Restless, Nervous, Or Anxious, Or Unable To Sleep At Night)? [id number] Information not available 10/03/2022 Do You Use Any Illicit Or Recreational Drugs? No Information not available 10/03/2022 Are You Currently In School? No [employer] [email or web address] Information not available 09/25/2023 Sex: Female Functional Status Question Answer Note LastModified by [employer] Details LastModified Time What is your exercise [...] Obesity Y Arthritis Y Head Injury/Concussion Y Kidney Stones Y Congestive Heart Failure (CHF) Y Back Problems Y GI Problems Y Lung Disease Y Asthma Y COPD Y Pneumonia Y Anemia Y Reflux/GERD Y [...] SNOMED-CT Code Diagnosis ICD10 Code Diagnosis Note [id number] [facility] [address] [facility],[address] [place] [address] 10/03/2022 14:07:23 10/03/2022 15:38:25 Syncope 061730175 R55 She has been experienci ng these stereotypi georges passing out episodes for five years. No definite witnessed convulsion s but some associated brief confusion afterwards .will order EEG to rule out neurologic causes of syncope Hypersomnia 81969963 G47 .10 She describes some significan t episodes of pathologic al sleepiness . She will fall asleep without warning in the middle of talking. This is very infrequent but can be suggestive of narcolepsy . Will order PSG with MSLT to evaluate this in more detail. [id number] Micheline Lackey MD [facility] [address] [facility],[address] [place] [address] 04/02/2023 12:53:55 04/02/2023 13:53:12 Pelvic mass 62310599 R19.00 Possible lymphocele versus ovarian remnant from [...] patient with lab levels and consider further INSULATION AND FLOORING ASSEMBLER follow up. [id number] Silvio Valdez MD [facility] [address] [place] [address],[facility] [address] [place] [address] 08/07/2023 14:35:57 08/07/2023 15:40:17 Recurrent urinary tract infection 181192203 N39.0 Kidney stone 43152531 N2 0.0 Chronic th oracic back pain 9017258381 50705 M54.6 Microscopic hematuria 19 2259575 R31.29 [id number] Silvio Valdez MD [facility] [address] [place] [address],[facility] [address] [place] [address] 09/25/2023 14:26:57 09/25/2023 15:25:02 Recurrent urinary tract infection 152544405 N39.0 Kidney stone 60793860 N2 0.0 Microscopic hematuria 19 8290371 R31.29 Health Concerns Section Related Observation LastModified by Organization Detai ls LastModified Time None Recorded Concern Status LastModified by Organization Details LastModified Time None Recorded Advance Directives Directive N: Payers Encounter Date Sequence Insurance Name Policy Number Policy Valdivia Covered Member ID Valdivia Member ID Guarantor Name 10/03/2022 1 [facility] [id number] Lissy Breck[place]ridge 04/02/2023 1 [employer] [facility] (MEDICAID HMO) [facility] [id number] [facility] 08/07/2023 1 [employer] [facility] (MEDICAID HMO) [facility] [id number] [facility] 09/25/2023 1 [employer] [facility] (MEDICAID HMO) [facility] [id number] [facility] Notes Date Note Type Note [...] but seem to be infrequent. 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 Malina Hernandez, DO [address] , [place], [address], [place] [facility] [place] 10/04/2022 10:12:03 04/02/2023 text/html 47-year-old curt n referred for a right pelvic fluid collection. Patient had hysterectomy, right salpingo-oophorectom y in 2021. She has undergone imaging on several occasions since then for some occasional, dull, aching right flank pain. She has a 7.4 cm right adnexal fluid collection that has enlarged somewhat over time. Patient states she is seen her brake coupler dinkey for this, was told it is possibly a lymphocele. Micheline Lackey MD [address], [place], [address], [facility] & [place] 04/18/2023 12:50:43 08/07/2023 text/html Location: Histor y [...] hysterectomy. Silvio Valdez MD [address], [place], [address], [facility] & [place] 08/07/2023 15:35:17 09/25/2023 text/html Patient returns to [...] is status post hysterectomy. Silvio Valdez MD [address] [facility], [place], [address], [facility] - [place] & [place] 09/25/2023 15:30:10 OBGyn Episode No OBEpisode recorded.
[2025-02-12] MEDS: ERTAPENEM SODIUM 1 GM VIAL IM (13:00)
[2025-02-12 13:05] VITALS: BP 139/70; PULSE 70; RESP 18; TEMP 36.8; O2SAT 98
== END 2025-02-12 13:05 | disposition home or self-care (01) ==
LOC: INF 12:38
PROVIDERS: PCP Internal Medicine; Visit Provider Internal Medicine
DX: N39.0 Urinary tract infection, site not specified (principal); Z16.12 Extended spectrum beta lactamase (ESBL) resistance
CPT/HCPCS: 96372; J1335

== ENCOUNTER 2025-02-13 12:54 | Outpatient (CLI) | payer OTHER, SELFPAY ==
--- OUTSIDE RECORDS SUMMARY | 2025-02-13 12:56 | XMS_ITS | Data Portability ---
Author Organization [facility] Mahamed lomeli, [facility] Address [address] [facility] [address] [place] [address] Assessment No assessment recorded. Plan of Treatment Reminders Order Date Submit Date Provider Last Modified By Organization Details Last Modified Time Details Appointments None recorded. Lab None recorded. Referral aquatic therapy referral 2017 018 [email or web address] 2 Not available 8 11:14:18 cognitive behavioral therapy referral 2017 018 [email or web address] [facility] [address] [facility], [place], [address], 8 11:14:19 occupationa l therapist referral 2017 018 [email or web address] 2 Not available 8 11:14:17 Procedures None recorded. Surgeries None recorded. Imaging None recorded. Medication Orders None recorded. Patient TargetsNo targets recorded. Patient Instructions Encounter Date Encounter Id Patient Instructions Last Modified By Organization Details Last Modified Time 08/13/2018 [id number] learning about healthy weight Not available 08/13/2018 [...] Name and Address Organization Details Recorded Time 486879 aspirin medicatio n Not available Not available Not available 08/13/2018 1191 RxNorm Melinda Hudson [facility] 8 10:01:54 Medications Name Sig Start Date [...] Address Organization Details Last Updated DateTime 8 516557. 12 g 48.2 kg/m2 160.02 cm 18 /min 61 /min 132 mm[Hg] 96 mm[Hg] Melinda Hudson [facility] 8 10:06:40 Social History Question Answer Notes LastModified by Organizat ion Details LastModified Time Tobacco Smoking Status Never Smoker Melinda Hudson [facility] 08/13/2018 10:02:03 What Was The Date Of Your Most Recent Tobacco Screening? 08/13/2018 Information n ot available 12/15/2019 Sex: Unknown Functional Status None recorded. Mental Status None recorded. Family History Relationship Description Onset Age of this Age Resolved Age Notes LastModified by Organization Details LastModified Time Father No current problems or disability Not available 08/13 10:02:01 Mother No current problems or disability [email or web address] Not available 08/13 10:02:01 Medical History Condition Response Emphysema N COPD N Arthritis Y Acid Reflux (GERD) Y Rheumatoid Arthritis N Bleeding Disorder N Asthma Y Diabetes N Heart Disease Y Hypertension Y Gynecological HistoryNo gynecological history recorded. Obstetrics History GPAL:G 0 P 0 0 0 0 Past Encounters Encounter ID Performer Location Encounter Start Date Encounter Closed Date Diagnosis/Indication Diagnosis SNOMED-CT Code Diagnosis ICD10 Code Diagnosis Note [id number] CLIFF BARBER MD [facility] [address] [place] [address] 08/13/2018 09:13:44 08/13/2018 10:48:47 Multiple joint pain 24851441 M25.50 she has clinical features of [place] OA. no features of an inflammato ry arthritis noted. no features of rheumatoid noted. 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 would suggest to avoid steroids and start OT as stated below. she can RTC with me as prn. 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 [...] DAVIDA BOWMAN OF [employer] (PPO) [id number] Lissy Valdez [id number] Lissy Valdez Notes Date Note Type Note [...] and a normal TSH. CLIFF BARBER MD [address] [place] [address], [address], [facility] 08/13/2018 17:00:47 OBGyn Episode No OBEpisode recorded.
--- OUTSIDE RECORDS SUMMARY | 2025-02-13 12:56 | XMS_ITS | Data Portability ---
Author Organization [facility] [employer] [facility] Alejandro ADMIN Address [address] [place] [address] Care Team Providers Care Manager Systems Name Role Phone ZAHRAA BENAVIDES Primary Care Provider [phone] Assessment Encounter Date Assessment Date Assessment LastModified by Organization Details LastModified Time 08/07/2023 08/07/[address] scan images onto our system. Will review to determine the degree of stone burden bilaterally in the kidneys. Will also plan cystoscopy and pelvic exam in the office in the near future. [email or web address] Not available 08/07/2023 15:34:46 09/25/2023 09/25/2023 I [...] in 6 months with KUB and UA. [email or web address] Not available 09/25/2023 15:29:09 Plan of Treatment Reminders Order Date Submit Date Provider Last Modified By Organization Details Last Modified Time Details Appointments None recorded. Lab urinalysis , dipstick 2022 023 [email or web address] [facility], [address] [place] [address], [address], [place], [address], 16:08:29 Referral None recorded. Procedures multiple sleep latency testing (PROC) 2021 [facility] (Central Scheduling), [address] [place] [address] [place], [address], 10:58:13 Surgeries None recorded. Imaging polysomnog coby - Needs PSG followed by MSLT 2021 [facility] (Central Scheduling), [address] [place] [address] [place], [address], 12:08:08 electroenc ephalogram 2021 [facility] (Centralized Scheduling), [address] , [place], [address], 10:13:19 Medication Orders None recorded. Patient TargetsNo [...] - 58.5 Perfo rmed at: - [facility] [address] [place] [address] Lab Direc tor: Los carson PhD, Phone : [phone] Not Available [facility] ([facility]) [address] , [place], [address], 04/03/2023 10:13:10 04/02/20 23 04/03/2023 FSH FSH, serum 5.4 mIU/m L Adult Femal e: Folli cular phase 3.5 - 12.5 Ovula tion phase 4.7 - 21.5 Lutea l phase 1.7 - 7.7 Postm enopa usal 25.8 - 134.8 Perfo rmed at: - [facility] [address] [place] [address] Lab Direc tor: Los carson PhD, Phone : [phone] Not Available [facility] ([facility]) [address] [facility], [place], [address], 04/03/2023 10:14:16 08/07/20 23 08/07/2023 urina lysis , dipst ick Leukocytes (reference range) trace Not Available [facility] [address] [facility], [place], [address], 08/07/2023 15:15:15 08/07/2008/07/2023 urina lysis , dipst ick Nitrite (reference range:) negati ve Not Available [facility] [address] [facility], [place], [address], 08/07/2023 15:15:15 08/07/2008/07/2023 urina lysis , dipst ick Urobilinogen (reference range) 0.2 Not Available [facility] [address] [place] [address], [address], 08/07/2023 15:15:15 08/07/20 23 08/07/2023 urina lysis , dipst ick Protein (reference range) negati ve Not Available Central [address] [facility], [place], [address], 08/07/2023 15:15:15 08/07/2008/07/2023 urina lysis , dipst ick pH (reference range 5-8.5) 6.0 Not Available [facility] [place] [address], [address], 08/07/2023 15:15:15 08/07/20 23 08/07/2023 urina lysis , dipst ick Blood (reference range:) small Not Available [address], [place], [address], 08/07/2023 15:15:15 08/07/2008/07/2023 urina lysis , dipst ick Specific [place] (reference range) 1.015 Not Available [address], [place], [address], 08/07/2023 15:15:15 08/07/2008/07/2023 urina lysis , dipst ick Ketone (reference range) negati ve Not Available [address], [place], [address], 08/07/2023 15:15:15 08/07/2008/07/2023 urina lysis , dipst ick Bilirubin (reference range) negati ve Not Available [address] [facility], [place], [address], 08/07/2023 15:15:15 08/07/2008/07/2023 urina lysis , dipst ick Glucose (reference range) 250 Not Available [address], [place], [address], 08/07/2023 15:15:15 08/07/2008/07/2023 urina lysis , dipst ick Color (reference range: yellow-brown ) Yellow Not Available [address], [place], [address], 08/07/2023 15:15:15 Result Notes None recorded. Problems Name Problem SNOMED Code Status Onset Date Resolution Date Notes Provider Name and Address Organization Details Recorded Time Syncope 656063043 Active 2021 Malina Hernandez, DO [address], [place], [address] , [place] [facility] - [place] & [place] 15:33:04 Hypersomnia 98077904 Active 2021 Malina Hernandez, DO [address], [place], [address] , [place] [facility] [place] & [place] 15:34:08 Problem Notes None recorded. Procedures Surgical History Date Name Laterality Status Provider Name and Address Organization Details Recorded Time 09/25/20 23 Cystoscopy-Female completed Silvio Valdez MD [address], [place], [address], [place] [facility] & [place] 09/25/2023 15:26:11 04/04/20 22 Date of Last Pap Smear completed Vandana Beckera [place] [facility] & [place] 10/03/2022 14:31:43 10/28/19 22 Pharmaceutical Engineer Surgery completed Vandana Eugenioa [place] [facility] & [place] 10/03/2022 14:45:45 10/28/19 17 Cholecystectomy completed Vandana Eugenioa [place] [facility] & [place] 10/03/2022 14:32:27 10/28/19 14 Other completed Vandana Eugenioa [place] [facility] & [place] 10/03/2022 14:44:51 cardiac catheterization completed Vandana Eugenioa [place] [facility] & [place] 10/03/2022 14:46:31 strabismus surgery completed Vandana Eugenioa [place] [facility] [place] & [place] 10/03/2022 14:55:15 Imaging Results None recorded. Procedure Notes None recorded. Medical Equipment None Reported. Allergies Allergen ID Allergen Name Allergen Category Reaction Reaction Severity Criticality Documentation Date Start Date Code Code System Note Provider Name and Address Organization Details Recorded Time 05020 aspirin medicatio n chest pain wheezing moderate severe Not available 10/02/2022 1191 RxNorm Vandana catherine, [place] [facility] & [place] 09:22:42 89860 Bactrim medicatio n arthralgi a (joint pain) muscle cramps severe severe Not available 10/02/2022 40545 9 RxNorm Vandana catherine, [facility] & [place] 2 09:22:49 87544 insect venom environme nt confusion cough dizziness fever flushing headache wheezing moderate moderate moderate mild moderate moderate moderate Not available 10/02/2022 71164 UNK Vandana catherine, [facility] & [place] 2 09:23:13 05521 Pneumococ georges vaccine Not available anaphylax is chest pain facial swelling nausea rash wheezing moderate moderate moderate moderate moderate moderate Not available 10/02/2022 70644 7 RxNorm Vandana catherine, [facility] & [place] 2 09:23:25 64351 rosuvasta tin medicatio n eye swelling facial swelling respirato ry distress moderate moderate moderate Not available 10/02/2022 21223 2 RxNorm Vandana catherine, [facility] & [place] 2 09:23:35 Medications Name Sig Start Date [...] % 2 L/min 89 /min 48.3 kg/m2 570218. 39 g 128 mm[Hg] 98 mm[Hg] Phillip ELLER - [facility] & [place] 3 13:04:48 Date Recorded Body height Body mass index (BMI) Body weight Systolic blood pressure Diastolic blood pressure Provider Name and Address Organization Details Last Updated DateTime 08/07/2023 157.48 cm 49.4 kg/m2 470914.9 4 g 125 mm[Hg] 75 mm[Hg] Britney Yee [place] - [facility] & [place] 3 15:05:24 Date Recorded Body height Body mass index (BMI) Body weight Systolic blood pressure Diastolic blood pressure Provider Name and Address Organization Details Last Updated DateTime 09/25/2023 157.48 cm 51.2 kg/m2 368713.8 6 g 126 mm[Hg] 76 mm[Hg] Ioana Ayala [facility] & [place] 3 15:07:04 Date Recorded Body height Body mass index (BMI) Body weight Oxygen saturation Oxygen saturation in Arterial blood by Pulse oximetry Heart rate Systolic blood pressure Diastolic blood pressure Provider Name and Address Organization Details Last Updated DateTime 2 157.48 cm 48.5 kg/m2 055259. 98 g 98 % 98 % 85 /min 94 mm[Hg] 62 mm[Hg] Vandana ELLER [facility] & [place] 2 14:30:48 Social History Question Answer Notes LastModified by [email or web address] Details LastModified Time Tobacco Smoking Status [facility] [place] 10/03/2022 14:32:09 Do You Have An Advance Directive? No Information not available 10/03/2022 What Is Your Level Of Alcohol Consumption? Occasional Information not available 10/03/2022 Are You Blind Or Do You Have Difficulty Seeing? No Information not available 10/03/2022 Are You Currently Employed? No [employer] [email or web address] Information not available 09/25/2023 What Was The Date Of Your Most Recent Tobacco Screening? 09/17/2022 Information not available 10/03/2022 Do You Have Any Pets? Yes [email or web address] Information not available 09/25/2023 Are You Passively Exposed To Smoke? No Information not available 10/03/2022 Do You Feel Stressed (tense, Restless, Nervous, Or Anxious, Or Unable To Sleep At Night)? [id number] Information not available 10/03/2022 Do You Use Any Illicit Or Recreational Drugs? No Information not available 10/03/2022 Are You Currently In School? No [employer] [email or web address] Information not available 09/25/2023 Sex: Female Functional Status Question Answer Note LastModified by [email or web address] Details LastModified Time What is your exercise [...] Y Back Problems Y GI Problems Y COPD Y Asthma Y Lung Disease Y Pneumonia Y Anemia Y Reflux/GERD Y [...] SNOMED-CT Code Diagnosis ICD10 Code Diagnosis Note [id number] [facility] [address] [facility],[address] [place] [address] 10/03/2022 14:07:23 10/03/2022 15:38:25 Syncope 222415681 R55 She has been experienci ng these stereotypi georges passing out episodes for five years. No definite witnessed convulsion s but some associated brief confusion afterwards .will order EEG to rule out neurologic causes of syncope Hypersomnia 06616965 G47 .10 She describes some significan t episodes of pathologic al sleepiness . She will fall asleep without warning in the middle of talking. This is very infrequent but can be suggestive of narcolepsy . Will order PSG with MSLT to evaluate this in more detail. 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 [id number] Silvio Valdez MD [facility] [address] [place] [address],[facility] [address] [place] [address] 08/07/2023 14:35:57 08/07/2023 15:40:17 Recurrent urinary tract infection 387500170 N39.0 Kidney stone 87239917 N2 0.0 Chronic th oracic back pain 1766142226 26293 M54.6 Microscopic hematuria 19 8348235 R31.29 [id number] Silvio Valdez MD [facility] [address] [place] [address],[facility] [address] [place] [address] 09/25/2023 14:26:57 09/25/2023 15:25:02 Recurrent urinary tract infection 841321274 N39.0 Kidney stone 77696945 N2 0.0 Microscopic hematuria 19 7417872 R31.29 Health Concerns Section Related Observation LastModified by Organization Detai ls LastModified Time None Recorded Concern Status LastModified by Organization Details LastModified Time None Recorded Advance Directives Directive N: Payers Encounter Date Sequence Insurance Name Policy Number Policy Valdivia Covered Member ID Valdivia Member ID Guarantor Name 10/03/2022 [facility] [id number] Lissy [place] 04/02/2023 1 [employer] [facility] (MEDICAID HMO) [facility] [id number] [facility] 08/07/2023 1 [employer] [facility] (MEDICAID HMO) [facility] [id number] [facility] 09/25/2023 1 [employer] [facility] (MEDICAID HMO) [facility] [id number] [facility] Notes Date Note Type Note Provider Name [...] but seem to be infrequent. 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 Malina Hernandez, DO [address] , [place], [address], [place] [facility] [place] 10/04/2022 10:12:03 04/02/2023 text/html 47-year-old curt n referred for a right pelvic fluid collection. Patient had hysterectomy, right salpingo-oophorectom y in 2021. She has undergone imaging on several occasions since then for some occasional, dull, aching right flank pain. She has a 7.4 cm right adnexal fluid collection that has enlarged somewhat over time. Patient states she is seen her puller machine for this, was told it is possibly a lymphocele. Micheline Lackey MD [address], [place], [address], [facility] & [place] 04/18/2023 12:50:43 08/07/2023 text/html Location: Histor y [...] hysterectomy. Silvio Valdez MD [address], [place], [address], [facility] & [place] 08/07/2023 15:35:17 09/25/2023 text/html Patient returns to [...] is status post hysterectomy. Silvio Valdez MD [address] [facility], [place], [address], [facility] - [place] & [place] 09/25/2023 15:30:10 OBGyn Episode No OBEpisode recorded.
[2025-02-13] MEDS: ERTAPENEM SODIUM 1 GM VIAL IM (13:02)
== END 2025-02-13 23:59 | disposition home or self-care (01) ==
LOC: INF 12:55
PROVIDERS: PCP Internal Medicine; Visit Provider Internal Medicine
DX: N39.0 Urinary tract infection, site not specified (principal); Z16.12 Extended spectrum beta lactamase (ESBL) resistance
CPT/HCPCS: 96372; 96374; J1335

== ENCOUNTER 2025-02-14 12:58 | Outpatient (CLI) | payer OTHER, SELFPAY ==
--- OUTSIDE RECORDS SUMMARY | 2025-02-14 13:01 | XMS_ITS | Data Portability ---
Author Organization [facility] Alejandro ADMIN Address [address] [place] [address] Care Team Providers Care Terrazzo Roller Name Role Phone ZAHRAA BENAVIDES Primary Care Provider [phone] Assessment Encounter Date Assessment Date Assessment LastModified by Organization Details LastModified Time 08/07/2023 08/07/[address] scan images onto our system. Will review to determine the degree of stone burden bilaterally in the kidneys. Will also plan cystoscopy and pelvic exam in the office in the near future. [email or web address] Not available 08/07/2023 15:34:46 09/25/2023 09/25/2023 I [...] in 6 months with KUB and UA. [email or web address] Not available 09/25/2023 15:29:09 Plan of Treatment Reminders Order Date Submit Date Provider Last Modified By Organization Details Last Modified Time Details Appointments None recorded. Lab urinalysis , dipstick 2022 023 [email or web address] [facility], [address] [place] [address], [address], [place], [address], 16:08:29 Referral None recorded. Procedures multiple sleep latency testing (PROC) 2021 [facility] (Central Scheduling), [address] [place] [address] [place], [address], 10:58:13 Surgeries None recorded. Imaging polysomnog coby - Needs PSG followed by MSLT 2021 [facility] (Central Scheduling), [address] [place] [address] [place], [address], 12:08:08 electroenc ephalogram 2021 [facility] (Centralized Scheduling), [address] , [place], [address], 10:13:19 Medication Orders None recorded. Patient TargetsNo [...] - 58.5 Perfo rmed at: - [facility] [address] [place] [address] Lab Direc tor: Los carson PhD, Phone : [phone] Not Available [facility] ([facility]) [address] , [place], [address], 04/03/2023 10:13:10 04/02/20 23 04/03/2023 FSH FSH, serum 5.4 mIU/m L Adult Femal e: Folli cular phase 3.5 - 12.5 Ovula tion phase 4.7 - 21.5 Lutea l phase 1.7 - 7.7 Postm enopa usal 25.8 - 134.8 Perfo rmed at: - [facility] [address] [place] [address] Lab Direc tor: Los carson PhD, Phone : [phone] Not Available [facility] ([facility]) [address] [facility], [place], [address], 04/03/2023 10:14:16 08/07/20 23 08/07/2023 urina lysis , dipst ick Leukocytes (reference range) trace Not Available [facility] [address] [facility], [place], [address], 08/07/2023 15:15:15 08/07/2008/07/2023 urina lysis , dipst ick Nitrite (reference range:) negati ve Not Available [facility] [address] [facility], [place], [address], 08/07/2023 15:15:15 08/07/2008/07/2023 urina lysis , dipst ick Urobilinogen (reference range) 0.2 Not Available [facility] [address] [place] [address], [address], 08/07/2023 15:15:15 08/07/20 23 08/07/2023 urina lysis , dipst ick Protein (reference range) negati ve Not Available [facility] [address] [facility], [place], [address], 08/07/2023 15:15:15 08/07/2008/07/2023 urina lysis , dipst ick pH (reference range 5-8.5) 6.0 Not Available [facility] [place] [address], [address], 08/07/2023 15:15:15 08/07/20 23 08/07/2023 urina lysis , dipst ick Blood (reference range:) small Not Available [address], [place], [address], 08/07/2023 15:15:15 08/07/2008/07/2023 urina lysis , dipst ick Specific [place] (reference range) 1.015 Not Available [address], [place], [address], 08/07/2023 15:15:15 08/07/2008/07/2023 urina lysis , dipst ick Ketone (reference range) negati ve Not Available [address], [place], [address], 08/07/2023 15:15:15 08/07/2008/07/2023 urina lysis , dipst ick Bilirubin (reference range) negati ve Not Available [address] [facility], [place], [address], 08/07/2023 15:15:15 08/07/2008/07/2023 urina lysis , dipst ick Glucose (reference range) 250 Not Available [address], [place], [address], 08/07/2023 15:15:15 08/07/2008/07/2023 urina lysis , dipst ick Color (reference range: yellow-brown ) Yellow Not Available [address], [place], [address], 08/07/2023 15:15:15 Result Notes None recorded. Problems Name Problem SNOMED Code Status Onset Date Resolution Date Notes Provider Name and Address Organization Details Recorded Time Syncope 646788880 Active 2021 Malina Hernandez, DO [address], [place], [address] , [place] - [facility] - [place] & [place] 15:33:04 Hypersomnia 93892707 Active 2021 Malina Hernandez, DO [address], [place], [address] , [place] [facility] [place] 15:34:08 Problem Notes None recorded. Procedures Surgical History Date Name Laterality Status Provider Name and Address Organization Details Recorded Time 09/25/20 23 Cystoscopy-Female completed Silvio Valdez MD [address], [place], [address], [place] [facility] & [place] 09/25/2023 15:26:11 04/04/20 22 Date of Last Pap Smear completed Vandana Beckera [place] [facility] [place] 10/03/2022 14:31:43 10/28/19 22 Sales Representative Cash Registers Surgery completed Vandana Eugenioa [place] [facility] [place] 10/03/2022 14:45:45 10/28/19 17 Cholecystectomy completed Vandana Eugenioa [place] [facility] [place] 10/03/2022 14:32:27 10/28/19 14 Other completed Vandana Eugenioa [place] [facility] [place] 10/03/2022 14:44:51 cardiac catheterization completed Vandana Eugenioa [place] [facility] [place] 10/03/2022 14:46:31 strabismus surgery completed Vandana Eugenioa [place] [facility] [place] 10/03/2022 14:55:15 Imaging Results None recorded. Procedure Notes None recorded. Medical Equipment None Reported. Allergies Allergen ID Allergen Name Allergen Category Reaction Reaction Severity Criticality Documentation Date Start Date Code Code System Note Provider Name and Address Organization Details Recorded Time 38760 aspirin medicatio n chest pain wheezing moderate severe Not available 10/02/2022 1191 RxNorm Vandana catherine, [place] [facility] [place] 09:22:42 08807 Bactrim medicatio n arthralgi a (joint pain) muscle cramps severe severe Not available 10/02/2022 97758 9 RxNorm Vandana catherine, RAFITA DARLING [facility] [place] 2 09:22:49 36352 insect venom environme nt confusion cough dizziness fever flushing headache wheezing moderate moderate moderate mild moderate moderate moderate Not available 10/02/2022 02461 UNK Vandana catherine, RAFITA DARLING [facility] & [place] 2 09:23:13 10650 Pneumococ georges vaccine Not available anaphylax is chest pain facial swelling nausea rash wheezing moderate moderate moderate moderate moderate moderate Not available 10/02/2022 15186 7 RxNorm Vandana catherine, RAFITA DARLING [facility] & [place] 2 09:23:25 17091 rosuvasta tin medicatio n eye swelling facial swelling respirato ry distress moderate moderate moderate Not available 10/02/2022 19943 2 RxNorm Vandana catherine, RAFITA DARLING [facility] & [place] 2 09:23:35 Medications Name Sig [...] % 2 L/min 89 /min 48.3 kg/m2 647739. 39 g 128 mm[Hg] 98 mm[Hg] Phillip ELLER - [facility] & [place] 3 13:04:48 Date Recorded Body height Body mass index (BMI) Body weight Systolic blood pressure Diastolic blood pressure Provider Name and Address Organization Details Last Updated DateTime 08/07/2023 157.48 cm 49.4 kg/m2 148933.9 4 g 125 mm[Hg] 75 mm[Hg] Britney Yee [place] - [facility] [place] 3 15:05:24 Date Recorded Body height Body mass index (BMI) Body weight Systolic blood pressure Diastolic blood pressure Provider Name and Address Organization Details Last Updated DateTime 09/25/2023 157.48 cm 51.2 kg/m2 530289.8 6 g 126 mm[Hg] 76 mm[Hg] Ioana Ayala [facility] & [place] 3 15:07:04 Date Recorded Body height Body mass index (BMI) Body weight Oxygen saturation Oxygen saturation in Arterial blood by Pulse oximetry Heart rate Systolic blood pressure Diastolic blood pressure Provider Name and Address Organization Details Last Updated DateTime 2 157.48 cm 48.5 kg/m2 067273. 98 g 98 % 98 % 85 /min 94 mm[Hg] 62 mm[Hg] Vandana ELLER [facility] & [place] 2 14:30:48 Social History Question Answer Notes LastModified by [facility] Details LastModified Time Tobacco Smoking Status [facility] [place] 10/03/2022 14:32:09 Do You Have An Advance Directive? No Information not available 10/03/2022 What Is Your Level Of Alcohol Consumption? Occasional Information not available 10/03/2022 Are You Blind Or Do You Have Difficulty Seeing? No Information not available 10/03/2022 Are You Currently Employed? No [employer] [email or web address] Information not available 09/25/2023 What Was The Date Of Your Most Recent Tobacco Screening? 09/17/2022 Information not available 10/03/2022 Do You Have Any Pets? Yes [email or web address] Information not available 09/25/2023 Are You Passively Exposed To Smoke? No Information not available 10/03/2022 Do You Feel Stressed (tense, Restless, Nervous, Or Anxious, Or Unable To Sleep At Night)? [id number] Information not available 10/03/2022 Do You Use Any Illicit Or Recreational Drugs? No Information not available 10/03/2022 Are You Currently In School? No [employer] [email or web address] Information not available 09/25/2023 Sex: Female Functional Status Question Answer Note LastModified by [facility] Details LastModified Time What is your exercise [...] Stones Y COPD Y Lung Disease Y Pneumonia Y Spine Problems Y Autoimmune disease Y Obesity Y Arthritis Y Head Injury/Concussion Y High Cholesterol Y Rheumatoid Arthritis Y Headaches Y GI Problems Y Anemia Y Diabetes Y Congestive Heart Failure (CHF) Y Back Problems Y Asthma Y Reflux/GERD Y Hypertension Y Gynecological History Statement/Question Response Menses Monthly N Abnormal Pap N Date of Last Pap Smear 04/04/2022 Current Control Method Sterilizati on Flow Heavy Date of LMP 04/10/2022 Sexually Active? Y Obstetrics History GPAL:G 0 P 0 0 0 0 Past Encounters Encounter ID Performer Location Encounter Start Date Encounter Closed Date Diagnosis/Indication Diagnosis SNOMED-CT Code Diagnosis ICD10 Code Diagnosis [facility] [id number] [facility] [address] [facility],[address] [place] [address] 10/03/2022 14:07:23 10/03/2022 15:38:25 Syncope 419152049 R55 She has been experienci ng these stereotypi georges passing out episodes for five years. No definite witnessed convulsion s but some associated brief confusion afterwards .will order EEG to rule out neurologic causes of syncope Hypersomnia 04607874 G47 .10 She describes some significan t episodes of pathologic al sleepiness . She will fall asleep without warning in the middle of talking. This is very infrequent but can be suggestive of narcolepsy . Will order PSG with MSLT to evaluate this in more detail. [id number] Micheline Lackey MD [facility] [address] [facility] [place] [address] 04/02/2023 12:53:55 04/02/2023 13:53:12 Pelvic mass 78326857 R19.00 Possible lymphocele versus ovarian remnant from [...] patient with lab levels and consider further PATIENT CARE REPRESENTATIVE follow up. [id number] Silvio Valdez MD [facility] [address] [place] [address],[facility] [address] [place] [address] 08/07/2023 14:35:57 08/07/2023 15:40:17 Recurrent urinary tract infection 775914674 N39.0 Kidney stone 97520571 N2 0.0 Chronic th oracic back pain 9970944569 17743 M54.6 Microscopic hematuria 19 7029672 R31.29 [id number] Silvio Valdez MD [facility] [address] [place] [address],[facility] [address] [place] [address] 09/25/2023 14:26:57 09/25/2023 15:25:02 Recurrent urinary tract infection 116812047 N39.0 Kidney stone 45881483 N2 0.0 Microscopic hematuria 19 8245653 R31.29 Health Concerns Section Related Observation LastModified by Organization Detai ls LastModified Time None Recorded Concern Status LastModified by Organization Details LastModified Time None Recorded Advance Directives Directive N: Payers Encounter Date Sequence Insurance Name Policy Number Policy Valdivia Covered Member ID Valdivia Member ID Guarantor Name 10/03/2022 1 [facility] [id number] Lissy [place] 04/02/2023 1 [employer] [facility] (MEDICAID HMO) [facility] [id number] [facility] 08/07/2023 1 [employer] [facility] (MEDICAID HMO) [facility] [id number] [facility] 09/25/2023 1 [employer] [facility] (MEDICAID HMO) [facility] [id number] [facility] Notes Date Note Type Note Provider Name [...] but seem to be infrequent. Her previous dip painter did have a loop recorder placed which [...] significant. Malina Hernandez, DO [address] , [place], [address], [place] [facility] [place] 10/04/2022 10:12:03 04/02/2023 [...] time. Patient states she is seen her visual and stock associate for this, was told it is possibly a lymphocele. Micheline Lackey MD [address], [place], [address], [facility] & [place] 04/18/2023 12:50:43 08/07/2023 text/html Location: [...] hysterectomy. Silvio Valdez MD [address], [place], [address], [facility] & [place] 08/07/2023 15:35:17 09/25/2023 text/html Patient [...] is status post hysterectomy. Silvio Valdez MD [address] [facility], [place], [address], [facility] [place] [facility] [place] 09/25/2023 15:30:10 OBGyn Episode No OBEpisode recorded.
--- OUTSIDE RECORDS SUMMARY | 2025-02-14 13:01 | XMS_ITS | Data Portability ---
Author Organization [facility] Mahamed lomeli, [facility] [place] CLOS[facility] Address [address] [place] [address] Assessment No assessment recorded. Plan of Treatment Reminders Order Date Submit Date Provider Last Modified By Organization Details Last Modified Time Details Appointments None recorded. Lab None recorded. Referral aquatic therapy referral 2017 018 [email or web address] 2 Not available 8 11:14:18 cognitive behavioral therapy referral 2017 018 [email or web address] [facility] [address] [facility], [address], [place], [address], 8 11:14:19 occupationa l therapist referral 2017 018 [email or web address] 2 Not available 8 11:14:17 Procedures None recorded. Surgeries None recorded. Imaging None recorded. Medication Orders None recorded. Patient TargetsNo targets recorded. Patient Instructions Encounter Date Encounter Id Patient Instructions Last Modified By Organization Details Last Modified Time 08/13/2018 [id number] learning about healthy weight Not available 08/13/2018 [...] Name and Address Organization Details Recorded Time 586591 aspirin medicatio n Not available Not available Not available 08/13/2018 1191 RxNorm Melinda Hudson [facility] 8 10:01:54 Medications Name Sig Start Date [...] Address Organization Details Last Updated DateTime 8 253330. 12 g 48.2 kg/m2 160.02 cm 18 /min 61 /min 132 mm[Hg] 96 mm[Hg] Melinda Hudson [facility] 8 10:06:40 Social History Question Answer Notes LastModified by Organizat ion Details LastModified Time Tobacco Smoking Status Never Smoker Melinda Hudson [facility] 08/13/2018 10:02:03 What Was The Date Of Your Most Recent Tobacco Screening? 08/13/2018 Information n ot available 12/15/2019 Sex: Unknown Functional Status None recorded. Mental Status None recorded. Family History Relationship Description Onset Age of this Age Resolved Age Notes LastModified by Organization Details LastModified Time Father No current problems or disability [email or web address] Not available 08/13 10:02:01 Mother No current problems or disability [email or web address] Not available 08/13 10:02:01 Medical History Condition [...] SNOMED-CT Code Diagnosis ICD10 Code Diagnosis Note [id number] CLIFF BARBER MD [facility] [address] [place] [address] 08/13/2018 09:13:44 08/13/2018 10:48:47 Multiple joint pain 41381161 M25.50 she has clinical features of Dixon OA. no features of an inflammato ry arthritis noted. no features of rheumatoid noted. 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 would suggest to avoid steroids and start OT as stated below. she can RTC with me as prn. Fibromyalgia 290123160 M 79.7 she has clinical features suggestive [...] OT to help with the ROM and social media specialist. 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 Health Concerns Section Related Observation LastModified by Organization Detai ls LastModified Time None Recorded Concern Status LastModified by Organization Details LastModified Time None Recorded Advance Directives Directive None Recorded Payers Encounter Date Sequence Insurance Name Policy Number Policy Valdivia Covered Member ID Valdivia Member ID Guarantor Name 08/13/2018 1 [place] [id number] Lissy Valdez [id number] Lissy Valdez Notes Date Note Type Note [...] and a normal TSH. CLIFF BARBER MD [address] [place] [address], [address], [facility] 08/13/2018 17:00:47 OBGyn Episode No OBEpisode recorded.
[2025-02-14] MEDS: ERTAPENEM SODIUM 1 GM VIAL IM (13:15)
== END 2025-02-14 23:59 | disposition home or self-care (01) ==
LOC: INF 12:59
PROVIDERS: PCP Internal Medicine; Visit Provider Internal Medicine
DX: N39.0 Urinary tract infection, site not specified (principal); Z16.12 Extended spectrum beta lactamase (ESBL) resistance
CPT/HCPCS: 96372; J1335

== ENCOUNTER 2025-02-15 12:44 | Outpatient (CLI) | payer OTHER, SELFPAY ==
[2025-02-15 13:15] VITALS: BP 123/67; PULSE 55; RESP 14; TEMP 36.6; O2SAT 97
[2025-02-15] MEDS: ERTAPENEM SODIUM 1 GM VIAL IM (13:15)
== END 2025-02-15 13:30 | disposition home or self-care (01) ==
LOC: INF 12:45
PROVIDERS: PCP Internal Medicine; Visit Provider Internal Medicine
DX: N30.00 Acute cystitis without hematuria (principal); N20.0 Calculus of kidney
CPT/HCPCS: 96372; J1335

== ENCOUNTER 2025-02-16 13:04 | Outpatient (CLI) | payer OTHER, SELFPAY ==
[2025-02-16 13:17] VITALS: BP 126/74; PULSE 72; RESP 18; O2SAT 99
[2025-02-16] MEDS: ERTAPENEM SODIUM 1 GM VIAL IM (13:17)
== END 2025-02-16 13:25 | disposition home or self-care (01) ==
LOC: INF 13:04
PROVIDERS: PCP Internal Medicine; Visit Provider Internal Medicine
DX: N30.00 Acute cystitis without hematuria (principal)
CPT/HCPCS: 96372; J1335

== ENCOUNTER 2025-02-17 12:46 | Outpatient (CLI) | payer OTHER, SELFPAY ==
--- OUTSIDE RECORDS SUMMARY | 2025-02-17 12:48 | XMS_ITS | Data Portability ---
Author Organization [facility] Mahamed lomeli, ABHAYS [place] CLOSED Address [address] [facility] [address] [place] [address] Assessment No assessment recorded. Plan of Treatment Reminders Order Date Submit Date Provider Last Modified By Organization Details Last Modified Time Details Appointments None recorded. Lab None recorded. Referral aquatic therapy referral 2017 018 [email or web address] 2 Not available 8 11:14:18 cognitive behavioral therapy referral 2017 018 [email or web address] 2 [facility], [address] [facility], [address], [place], [address], 8 11:14:19 occupationa l therapist referral 2017 018 [email or web address] 2 Not available 8 11:14:17 Procedures None recorded. Surgeries None recorded. Imaging None recorded. Medication Orders None recorded. Patient TargetsNo targets recorded. Patient Instructions Encounter Date Encounter Id Patient Instructions Last Modified By Organization Details Last Modified Time 08/13/2018 [id number] learning about healthy weight Not available 08/13/2018 [...] Name and Address Organization Details Recorded Time 505660 aspirin medicatio n Not available Not available Not available 08/13/2018 1191 RxNorm Melinda Hudson [facility] 8 10:01:54 Medications Name Sig Start [...] Address Organization Details Last Updated DateTime 8 359892. 12 g 48.2 kg/m2 160.02 cm 18 /min 61 /min 132 mm[Hg] 96 mm[Hg] Melinda Hudson [facility] 8 10:06:40 Social History Question Answer Notes LastModified by Organizat ion Details LastModified Time Tobacco Smoking Status Never Smoker Melinda Hudson [facility] 08/13/2018 10:02:03 What Was The Date Of Your Most Recent Tobacco Screening? 08/13/2018 Information n ot available 12/15/2019 Sex: Unknown Functional Status None recorded. Mental Status None recorded. Family History Relationship Description Onset Age of this Age Resolved Age Notes LastModified by Organization Details LastModified Time Father No current problems or disability [email or web address] Not available 08/13 10:02:01 Mother No current problems or disability Not available 08/13 10:02:01 Medical History Condition [...] SNOMED-CT Code Diagnosis ICD10 Code Diagnosis Note [id number] CLIFF BARBER MD [facility] [address] [place] [address] 08/13/2018 09:13:44 08/13/2018 10:48:47 Multiple joint pain 30690692 M25.50 she has clinical features of Dixon OA. no features of an inflammato ry arthritis noted. no features of rheumatoid noted. 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 would suggest to avoid steroids and start OT as stated below. she can RTC with me as prn. 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 Health Concerns Section Related Observation LastModified by Organization Detai ls LastModified Time None Recorded Concern Status LastModified by Organization Details LastModified Time None Recorded Advance Directives Directive None Recorded Payers Encounter Date Sequence Insurance Name Policy Number Policy Valdivia Covered Member ID Valdivia Member ID Guarantor Name 08/13/2018 1 [place] [id number] Lissy Valdez [id number] Lissy Valdez Notes Date Note Type Note [...] and a normal TSH. CLIFF BARBER MD [address] [place] [address], [address], [facility] 08/13/2018 17:00:47 OBGyn Episode No OBEpisode recorded.
--- OUTSIDE RECORDS SUMMARY | 2025-02-17 12:49 | XMS_ITS | Data Portability ---
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 Will review to determine the degree of stone burden bilaterally in the kidneys. Will also plan cystoscopy and pelvic exam in the office in the near future. Not available 08/07/2023 15:34:46 09/25/2023 09/25/2023 I [...] in 6 months with KUB and UA. [email or web address] Not available 09/25/2023 15:29:09 Plan of Treatment Reminders Order Date Submit Date Provider Last Modified By Organization Details Last Modified Time Details Appointments None recorded. Lab urinalysis , dipstick 2022 023 [email or web address] [facility], [address] [place] [address], [address], [place], [address], 16:08:29 Referral None recorded. Procedures multiple sleep latency testing (PROC) 2021 [facility] (Central Scheduling), [address] [place] [address] [place], [address], 10:58:13 Surgeries None recorded. Imaging polysomnog coby - Needs PSG followed by MSLT 2021 [facility] (Central Scheduling), [address] [place] [address] [place], [address], 12:08:08 electroenc ephalogram 2021 [facility] (Centralized Scheduling), [address] , [place], [address], 10:13:19 Medication Orders None recorded. Patient TargetsNo [...] - 58.5 Perfo rmed at: - [facility] [address] [place] [address] Lab Direc tor: Los carson PhD, Phone : [phone] Not Available [facility] ([facility]) [address] , [place], [address], 04/03/2023 10:13:10 04/02/20 23 04/03/2023 FSH FSH, serum 5.4 mIU/m L Adult Femal e: Folli cular phase 3.5 - 12.5 Ovula tion phase 4.7 - 21.5 Lutea l phase 1.7 - 7.7 Postm enopa usal 25.8 - 134.8 Perfo rmed at: - [facility] [address] [place] [address] Lab Direc tor: Los carson PhD, Phone : [phone] Not Available [facility] ([facility]) [address] [facility], [place], [address], 04/03/2023 10:14:16 08/07/20 23 08/07/2023 urina lysis , dipst ick Leukocytes (reference range) trace Not Available [facility] [address] [facility], [place], [address], 08/07/2023 15:15:15 08/07/2008/07/2023 urina lysis , dipst ick Nitrite (reference range:) negati ve Not Available [facility] [address] [facility], [place], [address], 08/07/2023 15:15:15 08/07/2008/07/2023 urina lysis , dipst ick Urobilinogen (reference range) 0.2 Not Available [facility] [address] [place] [address], [address], 08/07/2023 15:15:15 08/07/20 23 08/07/2023 urina lysis , dipst ick Protein (reference range) negati ve Not Available [facility] [address] [facility], [place], [address], 08/07/2023 15:15:15 08/07/2008/07/2023 urina lysis , dipst ick pH (reference range 5-8.5) 6.0 Not Available [facility] [place] [address], [address], 08/07/2023 15:15:15 08/07/20 23 08/07/2023 urina lysis , dipst ick Blood (reference range:) small Not Available [address], [place], [address], 08/07/2023 15:15:15 08/07/2008/07/2023 urina lysis , dipst ick Specific [place] (reference range) 1.015 Not Available [address], [place], [address], 08/07/2023 15:15:15 08/07/2008/07/2023 urina lysis , dipst ick Ketone (reference range) negati ve Not Available [address], [place], [address], 08/07/2023 15:15:15 08/07/2008/07/2023 urina lysis , dipst ick Bilirubin (reference range) negati ve Not Available [address] [facility], [place], [address], 08/07/2023 15:15:15 08/07/2008/07/2023 urina lysis , dipst ick Glucose (reference range) 250 Not Available [address], [place], [address], 08/07/2023 15:15:15 08/07/2008/07/2023 urina lysis , dipst ick Color (reference range: yellow-brown ) Yellow Not Available [address], [place], [address], 08/07/2023 15:15:15 Result Notes None recorded. Problems Name Problem SNOMED Code Status Onset Date Resolution Date Notes Provider Name and Address Organization Details Recorded Time Syncope 692781414 Active 2021 Malina Hernandez, DO [address], [place], [address] , [place] [facility] [place] [facility] [place] 15:33:04 Hypersomnia 03913476 Active 2021 Malina Hernandez, DO [address], [place], [address] , [place] [facility] [place] [facility] [place] 15:34:08 Problem Notes None recorded. Procedures Surgical History Date Name Laterality Status Provider Name and Address Organization Details Recorded Time 09/25/20 23 Cystoscopy-Female completed Silvio Valdez MD [address], [place], [address], [place] [facility] & [place] 09/25/2023 15:26:11 04/04/20 22 Date of Last Pap Smear completed Vandana Beckera [place] [facility] & [place] 10/03/2022 14:31:43 10/28/19 22 Plugger Man Surgery completed Vandana Eugenioa [place] [facility] & [place] 10/03/2022 14:45:45 10/28/19 17 Cholecystectomy completed Vandana Eugenioa [place] [facility] & [place] 10/03/2022 14:32:27 10/28/19 14 Other completed Vandana Eugenioa [place] [facility] & [place] 10/03/2022 14:44:51 cardiac catheterization completed Vandana Eugenioa [place] [facility] & [place] 10/03/2022 14:46:31 strabismus surgery completed Vandana Eugenioa [place] [facility] [place] [facility] [place] 10/03/2022 14:55:15 Imaging Results None recorded. Procedure Notes None recorded. Medical Equipment None Reported. Allergies Allergen ID Allergen Name Allergen Category Reaction Reaction Severity Criticality Documentation Date Start Date Code Code System Note Provider Name and Address Organization Details Recorded Time 09270 aspirin medicatio n chest pain wheezing moderate severe Not available 10/02/2022 1191 RxNorm Vandana catherine, [place] [facility] & [place] 09:22:42 82230 Bactrim medicatio n arthralgi a (joint pain) muscle cramps severe severe Not available 10/02/2022 63800 9 RxNorm Vandana catherine, [facility] & [place] 2 09:22:49 13199 insect venom environme nt confusion cough dizziness fever flushing headache wheezing moderate moderate moderate mild moderate moderate moderate Not available 10/02/2022 88405 UNK Vandana catherine, [facility] & [place] 2 09:23:13 07432 Pneumococ georges vaccine Not available anaphylax is chest pain facial swelling nausea rash wheezing moderate moderate moderate moderate moderate moderate Not available 10/02/2022 40624 7 RxNorm Vandana catherine, [facility] & [place] 2 09:23:25 70437 rosuvasta tin medicatio n eye swelling facial swelling respirato ry distress moderate moderate moderate Not available 10/02/2022 81698 2 RxNorm Vandana catherine, [facility] & [place] 2 09:23:35 Medications Name Sig Start Date [...] % 2 L/min 89 /min 48.3 kg/m2 559054. 39 g 128 mm[Hg] 98 mm[Hg] Phillip ELLER - [facility] & [place] 3 13:04:48 Date Recorded Body height Body mass index (BMI) Body weight Systolic blood pressure Diastolic blood pressure Provider Name and Address Organization Details Last Updated DateTime 08/07/2023 157.48 cm 49.4 kg/m2 751454.9 4 g 125 mm[Hg] 75 mm[Hg] Britney Yee [place] [facility] & [place] 3 15:05:24 Date Recorded Body height Body mass index (BMI) Body weight Systolic blood pressure Diastolic blood pressure Provider Name and Address Organization Details Last Updated DateTime 09/25/2023 157.48 cm 51.2 kg/m2 893798.8 6 g 126 mm[Hg] 76 mm[Hg] Ioana Ayala [facility] & [place] 3 15:07:04 Date Recorded Body height Body mass index (BMI) Body weight Oxygen saturation Oxygen saturation in Arterial blood by Pulse oximetry Heart rate Systolic blood pressure Diastolic blood pressure Provider Name and Address Organization Details Last Updated DateTime 2 157.48 cm 48.5 kg/m2 887975. 98 g 98 % 98 % 85 /min 94 mm[Hg] 62 mm[Hg] Vandana ELLER [facility] & [place] 2 14:30:48 Social History Question Answer Notes LastModified by Owlin Details LastModified Time Tobacco Smoking Status [facility] [place] 10/03/2022 14:32:09 Do You Have An Advance Directive? No Information not available 10/03/2022 What Is Your Level Of Alcohol Consumption? Occasional Information not available 10/03/2022 Are You Blind Or Do You Have Difficulty Seeing? No Information not available 10/03/2022 Are You Currently Employed? No [employer] [email or web address] Information not available 09/25/2023 What Was The Date Of Your Most Recent Tobacco Screening? 09/17/2022 Information not available 10/03/2022 Do You Have Any Pets? Yes [email or web address] Information not available 09/25/2023 Are You Passively Exposed To Smoke? No Information not available 10/03/2022 Do You Feel Stressed (tense, Restless, Nervous, Or Anxious, Or Unable To Sleep At Night)? [id number] Information not available 10/03/2022 Do You Use Any Illicit Or Recreational Drugs? No Information not available 10/03/2022 Are You Currently In School? No [employer] [email or web address] Information not available 09/25/2023 Sex: Female Functional Status Question Answer Note LastModified by Owlin Details LastModified Time What is your exercise [...] Medical History Condition Response Kidney Stones Y GI Problems Y Lung Disease Y COPD Y Pneumonia Y Anemia Y Spine Problems [...] SNOMED-CT Code Diagnosis ICD10 Code Diagnosis Note [id number] [facility] [address] [facility],[address] [place] [address] 10/03/2022 14:07:23 10/03/2022 15:38:25 Syncope 380694599 R55 She has been experienci ng these stereotypi georges passing out episodes for five years. No definite witnessed convulsion s but some associated brief confusion afterwards .will order EEG to rule out neurologic causes of syncope Hypersomnia 12712479 G47 .10 She describes some significan t episodes of pathologic al sleepiness . She will fall asleep without warning in the middle of talking. This is very infrequent but can be suggestive of narcolepsy . Will order PSG with MSLT to evaluate this in more detail. 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 [id number] Silvio Valdez MD [facility] [address] [place] [address],[facility] [address] [place] [address] 08/07/2023 14:35:57 08/07/2023 15:40:17 Recurrent urinary tract infection 010375071 N39.0 Kidney stone 31340258 N2 0.0 Chronic th oracic back pain 2691987894 51430 M54.6 Microscopic hematuria 19 6406747 R31.29 [id number] Silvio Valdez MD [facility] [address] [place] [address],[facility] [address] [place] [address] 09/25/2023 14:26:57 09/25/2023 15:25:02 Recurrent urinary tract infection 604906653 N39.0 Kidney stone 18571150 N2 0.0 Microscopic hematuria 19 9096359 R31.29 Health Concerns Section Related Observation LastModified by Organization Detai ls LastModified Time None Recorded Concern Status LastModified by Organization Details LastModified Time None Recorded Advance Directives Directive N: Payers Encounter Date Sequence Insurance Name Policy Number Policy Valdivia Covered Member ID Valdivia Member ID Guarantor Name 10/03/2022 1 [facility] (MEDICAID HMO) [facility] [id number] Lissy Henning 04/02/2023 1 [employer] [facility] (MEDICAID HMO) [facility] [id number] [facility] 08/07/2023 1 [employer] [facility] (MEDICAID HMO) [facility] [id number] [facility] 09/25/2023 1 [employer] [facility] (MEDICAID HMO) [facility] [id number] [facility] Notes Date Note Type Note Provider [...] but seem to be infrequent. 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 Malina Hernandez, DO [address] , [place], [address], [place] [facility] & [place] 10/04/2022 10:12:03 04/02/2023 text/html 47-year-old curt n referred for a right pelvic fluid collection. Patient had hysterectomy, right salpingo-oophorectom y in 2021. She has undergone imaging on several occasions since then for some occasional, dull, aching right flank pain. She has a 7.4 cm right adnexal fluid collection that has enlarged somewhat over time. Patient states she is seen her boom stick man for this, was told it is possibly a lymphocele. Micheline Lackey MD [address], [place], [address], [facility] & [place] 04/18/2023 12:50:43 08/07/2023 text/html Location: Histor y [...] hysterectomy. Silvio Valdez MD [address], [place], [address], [facility] & [place] 08/07/2023 15:35:17 09/25/2023 text/html Patient returns to [...] is status post hysterectomy. Silvio Valdez MD [address] [facility], [place], [address], [facility] [place] [facility] [place] 09/25/2023 15:30:10 OBGyn Episode No OBEpisode recorded.
[2025-02-17 13:05] VITALS: BP 115/72; PULSE 71; RESP 18; TEMP 36.8; O2SAT 98
[2025-02-17] MEDS: ERTAPENEM SODIUM 1 GM VIAL IM (13:05)
== END 2025-02-17 13:10 | disposition home or self-care (01) ==
PROVIDERS: PCP Internal Medicine; Visit Provider Internal Medicine
DX: N39.0 Urinary tract infection, site not specified (principal)
CPT/HCPCS: 96372; J1335

== ENCOUNTER 2025-02-18 12:37 | Outpatient (CLI) | payer OTHER, SELFPAY ==
[2025-02-18] MEDS: ERTAPENEM SODIUM 1 GM VIAL IM (12:59)
[2025-02-18 13:00] VITALS: BP 108/65; PULSE 63; RESP 17; TEMP 36.6; O2SAT 97
== END 2025-02-18 13:15 | disposition home or self-care (01) ==
LOC: INF 12:37
PROVIDERS: PCP Internal Medicine; Visit Provider Internal Medicine
DX: N30.00 Acute cystitis without hematuria (principal)
CPT/HCPCS: 96372; J1335

== ENCOUNTER 2025-02-19 12:49 | Outpatient (CLI) | payer OTHER, SELFPAY ==
[2025-02-19 13:10] VITALS: BP 129/72; PULSE 75; RESP 18; TEMP 36.8; O2SAT 99
[2025-02-19] MEDS: ERTAPENEM SODIUM 1 GM VIAL IM (13:10)
== END 2025-02-19 13:15 | disposition home or self-care (01) ==
PROVIDERS: PCP Internal Medicine; Visit Provider Internal Medicine
DX: A41.9 Sepsis, unspecified organism (principal); R65.21 Severe sepsis with septic shock
CPT/HCPCS: 96372; J1335

== ENCOUNTER 2025-02-20 12:51 | Outpatient (CLI) | payer OTHER, SELFPAY ==
--- OUTSIDE RECORDS SUMMARY | 2025-02-20 12:54 | XMS_ITS | Data Portability ---
Author Organization [facility] [employer] [facility] Alejandro ADMIN Address [address] [place] [address] Care Team Providers Care Neon Electrician Name Role Phone ZAHRAA BENAVIDES Primary Care [...] in 6 months with KUB and UA. Not available 09/25/2023 15:29:09 Plan of Treatment Reminders Order Date Submit Date Provider Last Modified By Organization Details Last Modified Time Details Appointments New Patient Visit 30 min 2024 02:00P M Marilou nation APRN Not available Not available Not available Lab urinalysi s, dipstick 2022 023 [email or web address] [facility], [address] [facility], [address], [place], [address], 08/07/2023 16:08:29 Referral None recorded. Procedures multiple sleep latency testing (PROC) 2021 [facility] (Central Scheduling), [address] [place] [address] [place], [address], 10/04/2022 10:58:13 Surgeries None recorded. Imaging polysomno gram - Needs PSG followed by MSLT 2021 [facility] (Central Scheduling), [address] [place] [address] [place], [address], 10/08/2022 12:08:08 electroen cephalogr am 2021 [facility] (Centralized Scheduling), [address] [place], [address], 10/04/2022 10:13:19 Medication Orders None recorded. Patient TargetsNo targets recorded. Patient InstructionsNo instructions recorded. Reason for Referral None Reported. Results Created Date Observation Date Name Description Value Unit Range Abnormal Flag Note LastModifiedBy Organization Detail LastModifiedTime 04/02/2004/03/2023 LUTEI NIZIN G HORMO NE luteinizing hormone (LH), ser 7.1 mIU/m L Adult Femal e: Folli cular phase 2.4 - 12.6 Ovula tion phase 14.0 - 95.6 Lutea l phase 1.0 - 11.4 Postm enopa usal 7.7 - 58.5 Perfo rmed at: - [facility] [address] [id number] [facility] Lab Direc tor: Los carson PhD, Phone : [phone] Not Available [facility] ([facility]) [address] [facility], [place], [address], 04/03/2023 10:13:10 06/06/04/03/2023 FSH FSH, serum 5.4 mIU/m L Adult Femal e: Folli cular phase 3.5 - 12.5 Ovula tion phase 4.7 - 21.5 Lutea l phase 1.7 - 7.7 Postm enopa usal 25.8 - 134.8 Perfo rmed at: - [facility] n [address] [facility], [place] [id number] [facility] Lab Direc tor: Los carson PhD, Phone : [phone] Not Available [facility] [address] [facility], [place], [address], 04/03/2023 10:14:16 08/07/2008/07/2023 urina lysis , dipst ick Leukocytes (reference range) trace Not Available [facility] [address] [place] [address] Suite [facility], [place], [address], 08/07/2023 15:15:15 08/07/2008/07/2023 urina lysis , dipst ick Nitrite (reference range:) negati ve Not Available [facility] [address] [place] [address] Suite [facility], [place], [address], 08/07/2023 15:15:15 08/07/2008/07/2023 urina lysis , dipst ick Urobilinogen (reference range) 0.2 Not Available [facility] [address] [place] [address], [place], [address], 08/07/2023 15:15:15 08/07/2008/07/2023 urina lysis , dipst ick Protein (reference range) negati ve Not Available [facility] [address] [place] [address] [address], [place], [address], 08/07/2023 15:15:15 08/07/20 23 08/07/2023 urina lysis , dipst ick pH (reference range 5-8.5) 6.0 Not Available [facility] [address] [place] [address] [address], [place], [address], 08/07/2023 15:15:15 08/07/2008/07/2023 urina lysis , dipst ick Blood (reference range:) small Not Available [facility] [address] [place] [address] [address], [place], [address], 08/07/2023 15:15:15 08/07/2008/07/2023 urina lysis , dipst ick Specific [place] (reference range) 1.015 Not Available [address], [place], [address], 08/07/2023 15:15:15 08/07/2008/07/2023 urina lysis , dipst ick Ketone (reference range) negati ve Not Available [address], [place], [address], 08/07/2023 15:15:15 08/07/2008/07/2023 urina lysis , dipst ick Bilirubin (reference range) negati ve Not Available [address], [place], [address], 08/07/2023 15:15:15 08/07/2008/07/2023 urina lysis , dipst ick Glucose (reference range) 250 Not Available [address], [place], [address], 08/07/2023 15:15:15 08/07/2008/07/2023 urina lysis , dipst ick Color (reference range: yellow-brown ) Yellow Not Available [address], [place], [address], 08/07/2023 15:15:15 Result Notes None recorded. Problems Name Problem SNOMED Code Status Onset Date Resolution Date Notes Provider Name and Address Organization Details Recorded Time Syncope 245552916 Active 2021 Malina Hernandez DO [address], [place], [address] , [place] [facility] & [place] 2 15:33:04 Hypersomnia 65520463 Active 2021 Malina Hernandez DO [address], [place], [address] , [place] [facility] & [place] 15:34:08 Problem Notes None recorded. Procedures Surgical History Date Name Laterality Status Provider Name and Address Organization Details Recorded Time 09/25/20 23 Cystoscopy-Female completed Silvio Valdez MD [address] , [place], [address], [place] [facility] & [place] 09/25/2023 15:26:11 04/04/20 22 Date of Last Pap Smear completed Vandana Dalla [place] [facility] & [place] 10/03/2022 14:31:43 10/28/19 22 [employer] Supervisor Surgery completed Vandana Dalla [place] [facility] & [place] 10/03/2022 14:45:45 10/28/19 17 Cholecystectomy completed Vandana Dalla [place] [facility] & [place] 10/03/2022 14:32:27 10/28/19 14 Other completed Vandana Dalla [place] [facility] & [place] 10/03/2022 14:44:51 cardiac catheterization completed Vandana Dalla [place] - [facility] [place] [facility] [place] 10/03/2022 14:46:31 strabismus surgery completed Vandana Dalla [place] - [facility] [place] [facility] [place] 10/03/2022 14:55:15 Imaging Results None recorded. Procedure Notes None recorded. Medical Equipment None Reported. Allergies Allergen ID Allergen Name Allergen Category Reaction Reaction Severity Criticality Documentation Date Start Date Code Code System Note Provider Name and Address Organization Details Recorded Time 05010 aspirin medicatio n chest pain wheezing moderate severe Not available 10/02/2022 1191 RxNorm Vandana Dalla null, [place] [facility] [place] & [place] 2 09:22:42 19223 Bactrim medicatio n arthralgi a (joint pain) muscle cramps severe severe Not available 10/02/2022 09634 9 RxNorm Vandana catherine, [facility] DARLING [facility] & [place] 2 09:22:49 44025 insect venom environme nt confusion cough dizziness fever flushing headache wheezing moderate moderate moderate mild moderate moderate moderate Not available 10/02/2022 25473 UNK Vandana catherine, RAF[facility] DARLING [facility] & [place] 2 09:23:13 09748 Pneumococ georges vaccine Not available anaphylax is chest pain facial swelling nausea rash wheezing moderate moderate moderate moderate moderate moderate Not available 10/02/2022 63929 7 RxNorm Vandana catherine, RAF[facility] DARLING [facility] & [place] 2 09:23:25 33250 rosuvasta tin medicatio n eye swelling facial swelling respirato ry distress moderate moderate moderate Not available 10/02/2022 28555 2 RxNorm Vandana catherine, [facility] DARLING [facility] & [place] 2 09:23:35 Medications Name Sig Start Date [...] % 2 L/min 89 /min 48.3 kg/m2 064148. 39 g 128 mm[Hg] 98 mm[Hg] Phillip ELLER - [facility] - [place] & [place] 3 13:04:48 Date Recorded Body height Body mass index (BMI) Body weight Systolic blood pressure Diastolic blood pressure Provider Name and Address Organization Details Last Updated DateTime 08/07/2023 157.48 cm 49.4 kg/m2 457507.9 4 g 125 mm[Hg] 75 mm[Hg] Britney ELLER - [facility] & [place] 3 15:05:24 Date Recorded Body height Body mass index (BMI) Body weight Systolic blood pressure Diastolic blood pressure Provider Name and Address Organization Details Last Updated DateTime 09/25/2023 157.48 cm 51.2 kg/m2 047875.8 6 g 126 mm[Hg] 76 mm[Hg] Ioana ELLER [facility] & [place] 3 15:07:04 Date Recorded Body height Body mass index (BMI) Body weight Oxygen saturation Oxygen saturation in Arterial blood by Pulse oximetry Heart rate Systolic blood pressure Diastolic blood pressure Provider Name and Address Organization Details Last Updated DateTime 2 157.48 cm 48.5 kg/m2 831362. 98 g 98 % 98 % 85 /min 94 mm[Hg] 62 mm[Hg] Vandana ELLER [facility] & [place] 2 14:30:48 Social History Question Answer Notes LastModified by Organizat ion Details LastModified Time Tobacco Smoking Status Never Smoker Vandana catherine, [facility] & [place] 10/03/2022 14:32:09 Do You Have An Advance Directive? No Information not available 10/03/2022 What Is Your Level Of Alcohol Consumption? Occasional Information not available 10/03/2022 Are You Blind Or Do You Have Difficulty Seeing? 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 09/17/2022 Information not available 10/03/2022 Do You Have Any Pets? Yes [email or web address] Information not available 09/25/2023 Are You Passively Exposed To Smoke? No Information not available 10/03/2022 Do You Feel Stressed (tense, Restless, Nervous, Or Anxious, Or Unable To Sleep At Night)? [id number] Information not available 10/03/2022 Do You Use Any Illicit Or Recreational Drugs? No Information not available 10/03/2022 Are You Currently In School? No [employer] [email or web address] Information not available 09/25/2023 Sex: Female Functional Status Question Answer Note LastModified by Organizat ion Details LastModified Time What is your exercise [...] SNOMED-CT Code Diagnosis ICD10 Code Diagnosis Note [id number] Malina DO SUZANNA Hernandez [facility] [address] [facility],[address] [place] [address] 10/03/2022 14:07:23 10/03/2022 15:38:25 Syncope 776490965 R55 She has been experienci ng these stereotypi georges passing out episodes for five years. No definite witnessed convulsion s but some associated brief confusion afterwards .will order EEG to rule out neurologic causes of syncope Hypersomnia 61278565 G47 .10 She describes some significan t episodes of pathologic al sleepiness . She will fall asleep without warning in the middle of talking. This is very infrequent but can be suggestive of narcolepsy . Will order PSG with MSLT to evaluate this in more detail. [id number] Micheline Lackey MD [facility] [address] [facility] [address] [facility] [address] [place] [address] 04/02/2023 12:53:55 04/02/2023 13:53:12 Pelvic mass 66499354 R19.00 Possible lymphocele versus ovarian remnant from [...] patient with lab levels and consider further ANNEALER HELPER follow up. [id number] Silvio Valdez MD [facility] [address] [place] [address] [address] [place] [address] 08/07/2023 14:35:57 08/07/2023 15:40:17 Recurrent urinary tract infection 658207532 N39.0 Kidney stone 94203080 N2 0.0 Chronic th oracic back pain 4986180472 63443 M54.6 Microscopic hematuria 19 0250508 R31.29 [id number] Silvio Valdez MD [facility] [address] [place] [address] [address] [place] [address] 09/25/2023 14:26:57 09/25/2023 15:25:02 Recurrent urinary tract infection 008250690 N39.0 Kidney stone 28678988 N2 0.0 Microscopic hematuria 19 8318216 R31.29 Health Concerns Section Related Observation LastModified by Organization Detai ls LastModified Time None Recorded Concern Status LastModified by Organization Details LastModified Time None Recorded Advance Directives Directive N: Payers Encounter Date Sequence Insurance Name Policy Number Policy Valdivia Covered Member ID Valdivia Member ID Guarantor Name 10/03/2022 1 AETNA [facility] (MEDICAID HMO) [facility] [id number] [facility] 04/02/2023 1 [employer]ET[employer] [facility] (MEDICAID HMO) [facility] [id number] [facility] 08/07/2023 1 [employer] [facility] (MEDICAID HMO) [facility] [id number] [facility] 09/25/2023 1 [employer] [facility] (MEDICAID HMO) [facility] [id number] [facility] Notes Date Note Type Note [...] but seem to be infrequent. 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 Malina Hernandez DO [address], [place], [address], [facility] & [place] 10/04/2022 10:12:03 04/02/2023 text/html 47-year-old woma n referred for a right pelvic fluid collection. Patient had hysterectomy, right salpingo-oophorectom y in 2021. She has undergone imaging on several occasions since then for some occasional, dull, aching right flank pain. She has a 7.4 cm right adnexal fluid collection that has enlarged somewhat over time. Patient states she is seen her chain splitter for this, was told it is possibly a lymphocele. Micheline Lackey MD [address], [place], [address], [facility] & [place] 04/18/2023 12:50:43 08/07/2023 text/html Location: Histor y [...] hysterectomy. Silvio Valdez MD [address], [place], [address], [facility] & [place] 08/07/2023 15:35:17 09/25/2023 text/html Patient returns to [...] is status post hysterectomy. Silvio Valdez MD [address] [facility], [place], [address], [place] [facility] [place] [facility] [place] 09/25/2023 15:30:10 OBGyn Episode No OBEpisode recorded.
--- OUTSIDE RECORDS SUMMARY | 2025-02-20 12:54 | XMS_ITS | Data Portability ---
Author Organization [facility] Mahamed lomeli, [facility] [place] [facility] Address [address] [facility] [address] [place] [address] Assessment No assessment recorded. Plan of Treatment Reminders Order Date Submit Date Provider Last Modified By Organization Details Last Modified Time Details Appointments None recorded. Lab None recorded. Referral aquatic therapy referral 2017 018 [email or web address] 2 Not available 8 11:14:18 cognitive behavioral therapy referral 2017 018 [email or web address] 2 [facility], [address] [facility], [place], [address], 8 11:14:19 occupationa l therapist referral 2017 018 [email or web address] 2 Not available 8 11:14:17 Procedures None recorded. Surgeries None recorded. Imaging None recorded. Medication Orders None recorded. Patient TargetsNo targets recorded. Patient Instructions Encounter Date Encounter Id Patient Instructions Last Modified By Organization Details Last Modified Time 08/13/2018 [id number] learning about healthy weight Not available 08/13/2018 [...] Name and Address Organization Details Recorded Time 597677 aspirin medicatio n Not available Not available Not available 08/13/2018 1191 RxNorm Melinda Hudson [facility] 8 10:01:54 Medications Name Sig Start [...] Address Organization Details Last Updated DateTime 8 491159. 12 g 48.2 kg/m2 160.02 cm 18 /min 61 /min 132 mm[Hg] 96 mm[Hg] Melinda Hudson [facility] 8 10:06:40 Social History Question Answer Notes LastModified by Organizat ion Details LastModified Time Tobacco Smoking Status Never Smoker Melinda Hudson [facility] 08/13/2018 10:02:03 What Was The Date [...] Y Emphysema N Acid Reflux (GERD) Y COPD N Asthma Y Heart Disease Y Rheumatoid Arthritis N Hypertension Y Gynecological HistoryNo gynecological history recorded. Obstetrics History GPAL:G 0 P 0 0 0 0 Past Encounters Encounter ID Performer Location Encounter Start Date Encounter Closed Date Diagnosis/Indication Diagnosis SNOMED-CT Code Diagnosis ICD10 Code Diagnosis Note [id number] CLIFF BARBER MD [facility] [address] [place] [address] 08/13/2018 09:13:44 08/13/2018 10:48:47 Pain of multiple joints 06371584 M25.50 she has clinical features of Dixon OA. no features of an inflammato ry arthritis noted. no features of rheumatoid noted. 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 would suggest to avoid steroids and start OT as stated below. she can RTC with me as prn. 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 Health Concerns Section Related Observation LastModified by Organization Detai ls LastModified Time None Recorded Concern Status LastModified by Organization Details LastModified Time None Recorded Advance Directives Directive None Recorded Payers Encounter Date Sequence Insurance Name Policy Number Policy Valdivia Covered Member ID Valdivia Member ID Guarantor Name 08/13/2018 1 [place] [id number] Lissy Valdez [id number] Lissy Valdez Notes Date Note Type Note [...] and a normal TSH. CLIFF BARBER MD [address] [place] [address], [address], [facility] 08/13/2018 17:00:47 OBGyn Episode No OBEpisode recorded.
[2025-02-20] MEDS: ERTAPENEM SODIUM 1 GM VIAL IM (13:30)
== END 2025-02-20 13:30 | disposition home or self-care (01) ==
LOC: INF 12:52
PROVIDERS: PCP Internal Medicine; Visit Provider Internal Medicine
DX: N39.0 Urinary tract infection, site not specified (principal)
CPT/HCPCS: G0463; J1335

== ENCOUNTER 2025-02-21 12:52 | Outpatient (CLI) | payer OTHER, SELFPAY ==
--- OUTSIDE RECORDS SUMMARY | 2025-02-21 12:54 | XMS_ITS | Data Portability ---
Author Organization [facility] Mahamed lomeli, ABHAYS [place] CLOSED Address [address] [facility] [address] [place] [address] Assessment No assessment recorded. Plan of Treatment Reminders Order Date Submit Date Provider Last Modified By Organization Details Last Modified Time Details Appointments None recorded. Lab None recorded. Referral aquatic therapy referral 2017 018 [email or web address] 2 Not available 8 11:14:18 cognitive behavioral therapy referral 2017 018 [email or web address] 2 [facility], [address] [facility], [address], [place], [address], 8 11:14:19 occupationa l therapist referral 2017 018 [email or web address] 2 Not available 8 11:14:17 Procedures None recorded. Surgeries None recorded. Imaging None recorded. Medication Orders None recorded. Patient TargetsNo targets recorded. Patient Instructions Encounter Date Encounter Id Patient Instructions Last Modified By Organization Details Last Modified Time 08/13/2018 [id number] learning about healthy weight Not available 08/13/2018 [...] Name and Address Organization Details Recorded Time 355321 aspirin medicatio n Not available Not available Not available 08/13/2018 1191 RxNorm Melinda Hudson [facility] 8 10:01:54 Medications Name Sig Start Date [...] Address Organization Details Last Updated DateTime 8 590797. 12 g 48.2 kg/m2 160.02 cm 18 /min 61 /min 132 mm[Hg] 96 mm[Hg] Melinda Hudson [facility] 8 10:06:40 Social History Question Answer Notes LastModified by Organizat ion Details LastModified Time Tobacco Smoking Status Never Smoker Melinda Hudson [facility] 08/13/2018 10:02:03 What Was The Date Of Your Most Recent Tobacco Screening? 08/13/2018 Information n ot available 12/15/2019 Sex: Unknown Functional Status None recorded. Mental Status None recorded. Family History Relationship Description Onset Age of this Age Resolved Age Notes LastModified by Organization Details LastModified Time Father No current problems or disability [email or web address] Not available 08/13 10:02:01 Mother No current problems or disability [email or web address] Not available 08/13 10:02:01 Medical History Condition [...] SNOMED-CT Code Diagnosis ICD10 Code Diagnosis Note [id number] CLIFF BARBER MD [facility] [address] [place] [address] 08/13/2018 09:13:44 08/13/2018 10:48:47 Pain of multiple joints 74430893 M25.50 she has clinical features of Dixon OA. no features of an inflammato ry arthritis noted. no features of rheumatoid noted. 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 would suggest to avoid steroids and start OT as stated below. she can RTC with me as prn. 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 Health Concerns Section Related Observation LastModified by Organization Detai ls LastModified Time None Recorded Concern Status LastModified by Organization Details LastModified Time None Recorded Advance Directives Directive None Recorded Payers Encounter Date Sequence Insurance Name Policy Number Policy Valdivia Covered Member ID Valdivia Member ID Guarantor Name 08/13/2018 1 [place] [id number] Lissy Valdez [id number] Lissy Valdez Notes Date Note Type Note [...] and a normal TSH. CLIFF BARBER MD [address] [place] [address], [address], [facility] 08/13/2018 17:00:47 OBGyn Episode No OBEpisode recorded.
--- OUTSIDE RECORDS SUMMARY | 2025-02-21 12:54 | XMS_ITS | Data Portability ---
Author Organization [facility] Alejandro ADMIN Address [address] [place] [address] Care Team Providers Care Pre Press Proofer Name Role Phone ZAHRAA BENAVIDES Primary Care Provider Assessment Encounter Date Assessment Date Assessment LastModified by Organization Details LastModified Time 08/07/2023 08/07/[address] scan images onto our system. Will review to determine the degree of stone burden bilaterally in the kidneys. Will also plan cystoscopy and pelvic exam in the office in the near future. [email or web address] Not available 08/07/2023 15:34:46 09/25/2023 09/25/2023 I [...] in 6 months with KUB and UA. [email or web address] Not available 09/25/2023 15:29:09 Plan of Treatment Reminders Order Date Submit Date Provider Last Modified By Organization Details Last Modified Time Details Appointments New Patient Visit 30 min 2024 02:00P M Marilou nation APRN Not available Not available Not available Lab urinalysi s, dipstick 2022 023 [email or web address] [facility], [address] [facility], [address], [place], [address], 08/07/2023 16:08:29 Referral None recorded. Procedures multiple sleep latency testing (PROC) 2021 [facility] (Central Scheduling), [address] [place] [address] [place], [address], 10/04/2022 10:58:13 Surgeries None recorded. Imaging polysomno gram - Needs PSG followed by MSLT 2021 [facility] (Central Scheduling), [address] [place] [address] [place], [address], 10/08/2022 12:08:08 electroen cephalogr am 2021 [facility] (Centralized Scheduling), [address] [place], [address], 10/04/2022 10:13:19 Medication Orders None recorded. Patient [...] - 58.5 Perfo rmed at: - [facility] ([facility]) [address] [id number] [facility] Lab Direc tor: Los carson PhD, Phone : [phone] Not Available [facility] ([facility]) [address] [facility], [place], [address], 04/03/2023 10:13:10 06/06/04/03/2023 FSH FSH, serum 5.4 mIU/m L Adult Femal e: Folli cular phase 3.5 - 12.5 Ovula tion phase 4.7 - 21.5 Lutea l phase 1.7 - 7.7 Postm enopa usal 25.8 - 134.8 Perfo rmed at: - [facility] (formerly [facility])[3] n [address] [facility], [place] [id number] [facility] Lab Direc tor: Los carson PhD, Phone : [phone] Not Available [facility] ([facility]) [address] [facility], [place], [address], 04/03/2023 10:14:16 08/07/2008/07/2023 urina lysis , dipst ick Leukocytes (reference range) trace Not Available [facility] [address] [place] [address] [address] [facility], [place], [address], 08/07/2023 15:15:15 08/07/2008/07/2023 urina lysis , dipst ick Nitrite (reference range:) negati ve Not Available [facility] [address] [place] [address] [address] [facility], [place], [address], 08/07/2023 15:15:15 08/07/2008/07/2023 urina lysis , dipst ick Urobilinogen (reference range) 0.2 Not Available [facility] [address] [place] [address], [place], [address], 08/07/2023 15:15:15 08/07/2008/07/2023 urina lysis , dipst ick Protein (reference range) negati ve Not Available [facility] [address] [place] [address] [address], [place], [address], 08/07/2023 15:15:15 08/07/20 23 08/07/2023 urina lysis , dipst ick pH (reference range 5-8.5) 6.0 Not Available [facility] [address] [place] [address] [address], [place], [address], 08/07/2023 15:15:15 08/07/2008/07/2023 urina lysis , dipst ick Blood (reference range:) small Not Available [facility] [address] [place] [address] [address], [place], [address], 08/07/2023 15:15:15 08/07/2008/07/2023 urina lysis , dipst ick Specific [place] (reference range) 1.015 Not Available [address], [place], [address], 08/07/2023 15:15:15 08/07/2008/07/2023 urina lysis , dipst ick Ketone (reference range) negati ve Not Available [address], [place], [address], 08/07/2023 15:15:15 08/07/2008/07/2023 urina lysis , dipst ick Bilirubin (reference range) negati ve Not Available [address], [place], [address], 08/07/2023 15:15:15 08/07/2008/07/2023 urina lysis , dipst ick Glucose (reference range) 250 Not Available [address], [place], [address], 08/07/2023 15:15:15 08/07/2008/07/2023 urina lysis , dipst ick Color (reference range: yellow-brown ) Yellow Not Available [address], [place], [address], 08/07/2023 15:15:15 Result Notes None recorded. Problems Name Problem SNOMED Code Status Onset Date Resolution Date Notes Provider Name and Address Organization Details Recorded Time Syncope 104051489 Active 2021 Malina Hernandez DO [address], [place], [address] , [place] [facility] [place] 2 15:33:04 Hypersomnia 46710074 Active 2021 Malina Hernandez DO [address], [place], [address] , [place] [facility] [place] 15:34:08 Problem Notes None recorded. Procedures Surgical History Date Name Laterality Status Provider Name and Address Organization Details Recorded Time 09/25/20 23 Cystoscopy-Female completed Silvio Valdez MD [address] , [place], [address], [place] [facility] [place] 09/25/2023 15:26:11 04/04/20 22 Date of Last Pap Smear completed Vandana Dalla [place] [facility] [place] 10/03/2022 14:31:43 10/28/19 22 Associate Designer Surgery completed Vandana Dalla [place] [facility] [place] 10/03/2022 14:45:45 10/28/19 17 Cholecystectomy completed Vandana Dalla [place] [facility] [place] 10/03/2022 14:32:27 10/28/19 14 Other completed Vandana Dalla [place] [facility] [place] 10/03/2022 14:44:51 cardiac catheterization completed Vandana Dalla [place] - [facility] [place] [facility] [place] 10/03/2022 14:46:31 strabismus surgery completed Vandana Dalla [place] [facility] [place] [facility] [place] 10/03/2022 14:55:15 Imaging Results None recorded. Procedure Notes None recorded. Medical Equipment None Reported. Allergies Allergen ID Allergen Name Allergen Category Reaction Reaction Severity Criticality Documentation Date Start Date Code Code System Note Provider Name and Address Organization Details Recorded Time 03472 aspirin medicatio n chest pain wheezing moderate severe Not available 10/02/2022 1191 RxNorm Vandana Dalla null, [place] [facility] [place] & [place] 2 09:22:42 42788 Bactrim medicatio n arthralgi a (joint pain) muscle cramps severe severe Not available 10/02/2022 18642 9 RxNorm Vandana catherine, [facility] [place] 2 09:22:49 68599 insect venom environme nt confusion cough dizziness fever flushing headache wheezing moderate moderate moderate mild moderate moderate moderate Not available 10/02/2022 57045 UNK Vandana catherine, [facility] [place] 2 09:23:13 50322 Pneumococ georges vaccine Not available anaphylax is chest pain facial swelling nausea rash wheezing moderate moderate moderate moderate moderate moderate Not available 10/02/2022 75387 7 RxNorm Vandana catherine, [facility] [place] 2 09:23:25 71978 rosuvasta tin medicatio n eye swelling facial swelling respirato ry distress moderate moderate moderate Not available 10/02/2022 47117 2 RxNorm Vandana catherine, [facility] [place] 2 09:23:35 Medications Name Sig Start Date [...] Not Available Not Available No t Available Vitamin C 500 mg tablet TAKE ONE TABLET BY MOUTH TWICE DAILY active Not Available Not Available No t Available azithromyci n 250 mg tablet TAKE 2 TABLETS BY MOUTH ON DAY 1, THEN TAKE 1 TABLET DAILY ON DAYS 2-5 active Not Available Not Available No t Available fosfomycin tromethamin e 3 gram oral packet TAKE 1 PACKET BY MOUTH TWICE A WEEK (EVERY 3-4 DAYS) active Not Available Not Available No t Available pravastatin 40 mg tablet TAKE ONE TABLET BY MOUTH EVERY DAY AT BEDTIME active Not Available Not Available No t Available ibuprofen 800 mg tablet TAKE ONE TABLET BY MOUTH THREE TIMES DAILY NEEDED --TAKE WITH FOOD-- active Not Available Not Available No t Available tizanidine 4 mg tablet TAKE ONE TABLET BY MOUTH THREE TIMES DAILY NEEDED MAY CAUSE DROWSINES S active Not Available Not Available No t Available fluconazole 150 mg tablet TAKE ONE TABLET BY MOUTH as a one-time DOSE FOR yeast infection . MAY REPEAT in 3 DAYS if needed active Not Available Not Available No t Available metoprolol succinate ER 50 mg tablet,exte nded release 24 hr TAKE ONE TABLET BY MOUTH ONCE DAILY FOR BLOOD PRESSURE 10/02 completed Not Available Not Available Not Available hydrocodone 5 mg-acetamin ophen 325 mg tablet TAKE ONE TABLET BY MOUTH EVERY 4-6 HOURS NEEDED FOR PAIN MAY CAUSE DROWSINES S active Not Available Not Available No t Available senna 8.6 mg tablet TAKE ONE TABLET BY MOUTH TWICE DAILY NEEDED FOR CONSTIPAT ION active Not Available Not Available No t Available sucralfate 1 gram tablet TAKE ONE TABLET BY MOUTH FOUR TIMES DAILY active Not Available Not Available No t Available phenazopyri dine 200 mg tablet TAKE ONE TABLET BY MOUTH THREE TIMES DAILY NEEDED FOR painful urination --TAKE WITH FOOD-- active Not Available Not Available No t Available ondansetron HCl 4 mg tablet TAKE ONE TABLET BY MOUTH EVERY 8 HOURS NEEDED FOR NAUSEA AND VOMITING active Not Available Not Available No t Available prednisone 20 mg tablet TAKE THREE TABLETS BY MOUTH ONCE DAILY FOR 5 DAYS --TAKE WITH FOOD-- active Not Available Not Available No t Available acetaminoph en 300 mg-codeine 30 mg tablet TAKE ONE TABLET BY MOUTH EVERY 6 HOURS NEEDED MAY [...] t Available tramadol 50 mg tablet TAKE ONE TABLET BY MOUTH EVERY 6 HOURS NEEDED FOR PAIN MAY CAUSE DROWSINES S active Not Available Not Available No t Available ketorolac 10 mg tablet TAKE ONE TABLET BY MOUTH EVERY 6 HOURS NEEDED FOR PAIN FOR 5 DAYS --TAKE WITH FOOD-- active Not Available Not Available No t Available bisoprolol fumarate 5 mg tablet TAKE ONE TABLET BY MOUTH EVERY DAY FOR heart 10/02 completed Not Available Not Available Not Available oxycodone-a cetaminophe n 5 mg-325 mg tablet TAKE ONE TABLET BY MOUTH EVERY 6 HOURS NEEDED FOR PAIN MAY CAUSE DROWSINES S active Not Available Not Available No t Available methenamine hippurate 1 gram tablet TAKE ONE TABLET BY MOUTH TWICE DAILY active Not Available Not Available No t Available lorazepam 0.5 mg tablet TAKE ONE [...] completed Not Available Not Available Not Available prednisone 50 mg tablet TAKE ONE TABLET BY MOUTH EVERY DAY --TAKE WITH FOOD-- active Not Available Not Available No t Available promethazin e 25 mg tablet TAKE [...] completed Not Available Not Available Not Available methylpredn isolone 4 mg tablets in a dose pack TAKE ACCORDING TO PACKAGE INSTRUCTI ONS --TAKE WITH FOOD-- -- FINISH ALL MEDICINE -- active Not Available Not Available No t Available colchicine 0.6 mg tablet TAKE ONE TABLET BY MOUTH TWICE DAILY active Not Available Not Available No t Available oxybutynin chloride 5 mg tablet TAKE ONE TABLET BY MOUTH TWICE DAILY NEEDED FOR BLADDER SPASMS active Not Available Not Available No t Available cefdinir 300 mg capsule TAKE ONE CAPSULE BY MOUTH EVERY TWELVE HOURS FOR 10 DAYS -- FINISH ALL MEDICINE -- active Not Available Not Available No t Available cholecalcif jenna (vitamin D3) 125 mcg (5,000 unit) capsule TAKE ONE CAPSULE BY MOUTH EVERY OTHER DAY active Not Available Not Available No t Available spironolact one 50 mg tablet TAKE ONE TABLET BY MOUTH EVERY DAY active Not Available Not Available No t Available amoxicillin 875 mg-potassiu m clavulanate 125 mg tablet TAKE ONE TABLET BY MOUTH TWICE DAILY FOR 7 DAYS -- FINISH ALL MEDICINE -- active Not Available Not Available No t Available Ventolin HFA 90 mcg/actuati on aerosol inhaler INHALE TWO PUFFS BY MOUTH EVERY 4 TO 6 HOURS NEEDED active Not Available Not Available No t Available oxycodone 5 mg tablet TAKE ONE TABLET BY MOUTH EVERY 8 HOURS NEEDED FOR PAIN MAY CAUSE DROWSINES S active Not Available Not Available No t Available rosuvastati n 40 mg tablet TAKE ONE TABLET BY MOUTH EVERY DAY 09/17 completed Not Available Not Available Not Available nitrofurant oin monohydrate /macrocryst als 100 mg capsule TAKE ONE CAPSULE BY MOUTH TWICE DAILY WITH FOOD -- FINISH ALL MEDICINE -- active Not Available Not Available No t Available Januvia 25 mg tablet TAKE ONE [...] completed Not Available Not Available Not Available OneTouch Verio test strips USE TO TEST BLOOD SUGAR ONCE DAILY DIRECTED active Not Available Not Available No t Available Farxiga 10 mg tablet TAKE ONE TABLET BY MOUTH EVERY DAY active Not Available Not Available No t Available Jardiance 25 mg tablet TAKE ONE TABLET BY MOUTH EVERY DAY active Not Available Not Available No t Available Trulicity 1.5 mg/0.5 mL subcutaneou s pen injector INJECT 1.5MG (0.5ML) SUBCUTANE OUSLY ONCE WEEKLY active Not Available Not Available No t Available Trulicity 0.75 mg/0.5 mL subcutaneou s pen injector inject 0.75mg (0.5ml) subcutane ously ONCE WEEKLY as directed active Not Available Not Available No t Available Glyxambi 25 mg-5 mg tablet TAKE ONE TABLET BY MOUTH ONCE DAILY IN THE MORNING active Not Available Not Available No t [...] Not Available Not Availa ble Not Available Trelegy Ellipta 100 mcg-62.5 mcg-25 mcg powder for inhalation INHALE 1 PUFF BY MOUTH EVERY DAY --RINSE MOUTH AFTER USE-- active Not Available Not Available No t Available turmeric 400 mg capsule Take 1 [...] Not Available Not Available No t Available Mounjaro 2.5 mg/0.5 mL subcutaneou s pen injector INJECT THE CONTENTS OF 1 PEN (2.5MG/0. 5ML) SUBCUTANE OUSLY ONCE WEEKLY active Not Available Not Available No t [...] % 2 L/min 89 /min 48.3 kg/m2 729798. 39 g 128 mm[Hg] 98 mm[Hg] Phillip Morrison [facility] & [place] 3 13:04:48 Date Recorded Body height Body mass index (BMI) Body weight Systolic blood pressure Diastolic blood pressure Provider Name and Address Organization Details Last Updated DateTime 08/07/2023 157.48 cm 49.4 kg/m2 796019.9 4 g 125 mm[Hg] 75 mm[Hg] Britney Yee [facility] & [place] 3 15:05:24 Date Recorded Body height Body mass index (BMI) Body weight Systolic blood pressure Diastolic blood pressure Provider Name and Address Organization Details Last Updated DateTime 09/25/2023 157.48 cm 51.2 kg/m2 109334.8 6 g 126 mm[Hg] 76 mm[Hg] Ioana Ayala [facility] & [place] 3 15:07:04 Date Recorded Body height Body mass index (BMI) Body weight Oxygen saturation Oxygen saturation in Arterial blood by Pulse oximetry Heart rate Systolic blood pressure Diastolic blood pressure Provider Name and Address Organization Details Last Updated DateTime 2 157.48 cm 48.5 kg/m2 788322. 98 g 98 % 98 % 85 /min 94 mm[Hg] 62 mm[Hg] Vandana ELLER - [facility] [place] 2 14:30:48 Social History Question Answer Notes LastModified by Organizat ion Details LastModified Time Tobacco Smoking Status Never Smoker Vandana catherine [place] [facility] [place] 10/03/2022 14:32:09 Do You Have An Advance Directive? No Information not available 10/03/2022 What Is Your Level Of Alcohol Consumption? Occasional Information not available 10/03/2022 Are You Blind Or Do You Have Difficulty Seeing? No Information not available 10/03/2022 Are You Currently Employed? No [employer] [email or web address] Information not available 09/25/2023 What Was The Date Of Your Most Recent Tobacco Screening? 09/17/2022 Information not available 10/03/2022 Do You Have Any Pets? Yes [email or web address] Information not available 09/25/2023 Are You Passively Exposed To Smoke? No Information not available 10/03/2022 Do You Feel Stressed (tense, Restless, Nervous, Or Anxious, Or Unable To Sleep At Night)? [id number] Information not available 10/03/2022 Do You Use Any Illicit Or Recreational Drugs? No Information not available 10/03/2022 Are You Currently In School? No [employer] [email or web address] Information not available 09/25/2023 Sex: Female Functional [...] SNOMED-CT Code Diagnosis ICD10 Code Diagnosis Note [id number] Malina Hernandez, DO ZZ [facility] [address] [facility],[address] [place] [address] 10/03/2022 14:07:23 10/03/2022 15:38:25 Syncope 779562234 R55 She has been experienci ng these stereotypi georges passing out episodes for five years. No definite witnessed convulsion s but some associated brief confusion afterwards .will order EEG to rule out neurologic causes of syncope Hypersomnia 23506993 G47 .10 She describes some significan t episodes of pathologic al sleepiness . She will fall asleep without warning in the middle of talking. This is very infrequent but can be suggestive of narcolepsy . Will order PSG with MSLT to evaluate this in more detail. [id number] Micheline Lackey MD [facility] [address] [place] [address],[address] [place] [address] 04/02/2023 12:53:55 04/02/2023 13:53:12 Pelvic mass 90754356 R19.00 Possible lymphocele versus ovarian remnant from [...] patient with lab levels and consider further PHOTOLITHOGRAPHER follow up. [id number] Silvio Valdez MD [facility] [address] [place] [address],[address] [place] [address] 08/07/2023 14:35:57 08/07/2023 15:40:17 Recurrent urinary tract infection 061085226 N39.0 Kidney stone 76538678 N2 0.0 Chronic th oracic back pain 3443092876 92405 M54.6 Microscopic hematuria 19 3498578 R31.29 [id number] Silvio Valdez MD [facility] [address] [place] [address],[address] [place] [address] 09/25/2023 14:26:57 09/25/2023 15:25:02 Recurrent urinary tract infection 053297440 N39.0 Kidney stone 41176388 N2 0.0 Microscopic hematuria 19 5738735 R31.29 Health Concerns Section Related Observation LastModified by Organization Detai ls LastModified Time None Recorded Concern Status LastModified by Organization Details LastModified Time None Recorded Advance Directives Directive N: Payers Encounter Date Sequence Insurance Name Policy Number Policy Valdivia Covered Member ID Valdivia Member ID Guarantor Name 10/03/2022 1 [facility] (MEDICAID H[facility]) [facility] [id number] [facility] 04/02/2023 1 [facility] [id number] [facility] 08/07/2023 1 [facility] (MEDICAID H[facility]) [facility] [id number] [facility] 09/25/2023 1 [facility] [id number] [facility] Notes Date Note Type Note Provider Name [...] but seem to be infrequent. 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 Malina Hernandez DO [address], [place], [address], [place] [facility] [place] 10/04/2022 10:12:03 04/02/2023 text/html 47-year-old woma n referred for a right pelvic fluid collection. Patient had hysterectomy, right salpingo-oophorectom y in 2021. She has undergone imaging on several occasions since then for some occasional, dull, aching right flank pain. She has a 7.4 cm right adnexal fluid collection that has enlarged somewhat over time. 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 Micheline Lackey MD [address], [place], [address], [place] [facility] [place] 04/18/2023 12:50:43 08/07/2023 text/html Location: Histor y [...] status post hysterectomy. Silvio Valdez MD [address] [facility], [place], [address], [facility] [place] & [place] 08/07/2023 15:35:17 09/25/2023 text/html Patient returns to [...] is status post hysterectomy. Silvio Valdez MD [address] [facility], [place], [address], [facility] - [place] & [place] 09/25/2023 15:30:10 OBGyn Episode No OBEpisode recorded.
== END 2025-02-21 23:59 | disposition home or self-care (01) ==
LOC: INF 12:53
PROVIDERS: PCP Internal Medicine; Visit Provider Internal Medicine
DX: N30.00 Acute cystitis without hematuria (principal)

== ENCOUNTER 2025-03-07 01:02 | Emergency (ER) | payer OTHER, SELFPAY ==
--- NOTE | 2025-03-07 01:15 | [facility].EDGENADL ---
Discharge Plan Disposition Patient Disposition: Home, Self-Care Prescriptions Prescriptions: No Action spironolactone [Aldactone] 50 mg tablet 50 mg PO DAILY Entresto 24-26 mg tablet 1 tab PO BID (DME) OneTouch Verio test strips Strip See Rx Instructions .Route Qty: 300 1RF Rx Instructions: As directed methenamine hippurate 1 gram tablet 1 g PO BID Qty: 60 5RF empagliflozin 25 mg tablet 25 mg PO DAILY Qty: 90 1RF oxybutynin chloride 5 mg tablet 5 mg PO BID PRN (Reason: bladder spasms) Qty: 60 1RF amoxicillin 500 mg capsule 1,000 mg PO TID Qty: 60 0RF albuterol sulfate [ProAir HFA] 90 mcg/actuation HFA aerosol inhaler 2 puff IH Q4HP PRN (Reason: Shortness Of Breath) omeprazole 20 mg capsule,delayed release(DR/EC) 20 mg PO DAILY pravastatin 40 mg tablet 40 mg PO HS Qty: 90 1RF tramadol 50 mg tablet 50 mg PO Q6H PRN (Reason: pain) Qty: 120 0RF sennosides [senna] 8.6 mg tablet 8.6 mg PO BID PRN (Reason: constipation) Qty: 30 0RF oxycodone 5 mg tablet 5 mg PO Q8H PRN (Reason: pain) Qty: 60 0RF metformin 500 mg tablet 500 mg PO BID Qty: 180 1RF Rx Instructions: TAKE ONE TABLET BY MOUTH TWICE DAILY ibuprofen 800 mg tablet 800 mg PO TID PRN (Reason: Pain) Qty: 90 2RF Rx Instructions: TAKE ONE TABLET BY MOUTH THREE TIMES DAILY NEEDED WITH FOOD bumetanide 2 mg tablet 2 mg PO BID Qty: 180 1RF ascorbic acid (vitamin C) [Vitamin C] 500 mg tablet 500 mg PO BID Rx Instructions: TAKE ONE TABLET BY MOUTH TWICE DAILY montelukast 10 mg tablet 10 mg PO HS Rx Instructions: TAKE ONE TABLET BY MOUTH EVERY DAY AT BEDTIME FOR ASTHMA cholecalciferol (vitamin D3) 125 mcg (5,000 unit) capsule 5,000 unit PO Q48H Mounjaro 2.5 mg/0.5 mL pen injector 2.5 mg SQ WEEKLY Rx Instructions: for 4 weeks oxycodone-acetaminophen 5-325 mg tablet 1 tab PO Q6H PRN (Reason: pain) Qty: 11 0RF ketorolac 10 mg tablet 10 mg PO Q6H PRN (Reason: pain) 5 Days Qty: 20 0RF nebivolol 5 MG tablet 5 mg PO DAILY cetirizine [Zyrtec] 10 mg Tablet 10 mg PO DAILY Referrals Follow up/Referrals: Juarez Griffin MD [Primary Care Provider] - See instructions Activity Restrictions/Add. Instructions Additional Instructions/Restrictions: Please follow-up with your team. Recommend staying as hydrated as you can. If your symptoms worsen recommend reevaluation. Please return to the emergency department if you develop any new or worsening symptoms or become concerned for your health. Clinical Impressions Clinical Impression: Muscle cramps, Tingling, Elevated CK Print Language Print Language: Swedish Discharge ED Provider: Gennaro Cuevas Adult HPI General Chief complaint: Recheck/Abnormal Lab/Rx Stated complaint: surgery , labs check Time Seen by Provider: 03/07/25 01:15 History of Present Illness HPI narrative: 49-year-old female with history of chronic staghorn calculus and current acute GI, recent parathyroidectomy on , presents for lab check. She reports that she has had tingling in her extremities and muscle soreness for the last day or so it seems to be getting worse. She called her team and they recommended she get seen in the ER to check her labs. She denies any chest pain or shortness of breath. Denies any new urinary symptoms. Reports that she has been eating and drinking well. Denies any pain at the surgical site. Related Data Home Medications ?Medication ?Instructions ?Recorded ?Confirmed nebivolol 5 mg tablet 5 mg PO DAILY 12/21/21 03/03/25 albuterol sulfate 90 mcg/actuation 2 puff inhalation Q4HP PRN 12/28/21 03/03/25 aerosol inhaler (ProAir HFA) Shortness Of Breath spironolactone 50 mg tablet 50 mg PO DAILY 03/30/22 03/03/25 (Aldactone) omeprazole 20 mg capsule,delayed 20 mg PO DAILY 04/24/22 03/03/25 release sacubitril 24 mg-valsartan 26 mg 1 tab PO BID 03/04/23 03/03/25 tablet (Entresto) cetirizine 10 mg tablet (Zyrtec) 10 mg PO DAILY 02/06/24 03/03/25 ascorbic acid (vitamin C) 500 mg 500 mg PO BID 01/27/25 03/03/25 tablet (Vitamin C) cholecalciferol (vitamin D3) 125 5,000 unit PO Q48H 01/27/25 03/03/25 mcg (5,000 unit) capsule montelukast 10 mg tablet 10 mg PO HS 01/27/25 03/03/25 tirzepatide 2.5 mg/0.5 mL 2.5 mg SQ WEEKLY 01/28/25 03/03/25 subcutaneous pen injector (Fadi) Previous Rx's ?Medication ?Instructions ?Recorded blood sugar diagnostic (OneTouch #300 ea 09/02/24 Verio test strips) methenamine hippurate 1 gram tablet 1 g PO BID #60 tabs 10/07/24 pravastatin 40 mg tablet 40 mg PO HS #90 tabs 11/11/24 oxycodone-acetaminophen 5 mg-325 1 tab PO Q6H PRN pain #11 tabs 01/29/25 mg tablet tramadol 50 mg tablet 50 mg PO Q6H PRN pain #120 tabs 02/02/25 empagliflozin 25 mg tablet 25 mg PO DAILY #90 tabs 02/03/25 oxybutynin chloride 5 mg tablet 5 mg PO BID PRN bladder spasms #60 02/03/25 tabs sennosides 8.6 mg tablet (senna) 8.6 mg PO BID PRN constipation #30 02/03/25 tabs ketorolac 10 mg tablet 10 mg PO Q6H PRN pain 5 days #20 02/05/25 tabs oxycodone 5 mg tablet 5 mg PO Q8H PRN pain #60 tabs 02/19/25 ibuprofen 800 mg tablet 800 mg PO TID PRN Pain #90 tabs 02/26/25 metformin 500 mg tablet 500 mg PO BID #180 tabs 02/26/25 bumetanide 2 mg tablet 2 mg PO BID #180 tabs 03/01/25 amoxicillin 500 mg capsule 1,000 mg (2 x 500 mg) PO TID 03/03/25 Vancomycin-resistant enterococcal UTI #60 caps Allergies Allergy/AdvReac Type Severity Reaction Status Date / Time aspirin Allergy Severe S-DIFF. Verified 03/03/25 13:08 BREATHING bee venom protein (honey bee) Allergy Severe Anaphylaxis Verified 03/03/25 13:08 Bleach (Sodium Hypochlorite) Allergy Severe diff. Verified 03/03/25 13:08 breathing, dizzy amoxicillin (From Augmentin) Allergy Mild Unknown Verified 03/03/25 13:08 allergy reaction clavulanic acid (From Allergy Mild Unknown Verified 03/03/25 13:08 Augmentin) allergy reaction fluconazole (From Diflucan) Allergy Mild Unknown Verified 03/03/25 13:08 allergy reaction levofloxacin (From Levaquin) Allergy Difficulty Verified 03/03/25 13:08 Breathing pneumococcal vaccine Allergy Unknown Verified 03/03/25 13:08 allergy reaction sulfamethoxazole (From Allergy Unknown Verified 03/03/25 13:08 Bactrim) allergy reaction trimethoprim (From Bactrim) Allergy Unknown Verified 03/03/25 13:08 allergy reaction sucralose (From SUCRALOSE AdvReac Severe breathing Verified 03/03/25 13:08 (FOOD/DRUG)) problems PFSH PFS Disclaimer: The information contained in this section may have been updated after the patient was seen, as this information can be updated by other users. Medical History Right nephrolithiasis UTI (urinary tract infection) Ovarian cyst Hematuria Vaginal pruritus History of nephrolithotomy with removal of calculi Hyperparathyroidism Multiple thyroid nodules Asthma with exacerbation Syncopal episodes POSSIBLY DUE TO POTS Right flank pain Adnexal mass Septic shock Severe sepsis with acute organ dysfunction Cellulitis of right wrist Pneumonia Syncope Altered mental status Surgical History History of cardiac catheterization x2 History of loop recorder History of eye surgery History of cholecystectomy S/P right oophorectomy S/P hysterectomy History of tubal ligation Family History Other Alzheimer disease Bipolar 1 disorder Dementia Family history of diabetes mellitus type II Family history of myocardial infarction Lung cancer Lupus Social History Smoking Status: Never smoker second hand exposure: No alcohol intake: never substance use type: denies use current occupational status: unemployed and disabled Travel in the last 8 weeks?: None household members: spouse housing: house current occupational exposures/hazards: No caffeine: Yes Have you lived/traveled outside [place] in past 30 days?: No Contact w/someone who lives/traveled outside [place] past 30 days?: No Exposure to someone with infectious disease in past 14 days?: No Do you have a fever (greater than 100.4 F or 38 C)?: No Have you tested positive for COVID-19?: No Exposed to someone with COVID-19 in past 14 days?: No Do you have a sore throat?: No Do you have a cough?: No Do you have any weakness?: No Do you have any diarrhea?: No Are you experiencing any unusual bleeding?: No Do you have any muscle aches/pain?: No Do you have any abdominal pain?: No Are you experiencing loss of taste or smell?: No Other Medical History Have you received the Flu Vaccine for this season: No Have you received the Pneumonia Vaccine: Yes ROS Obtained: Yes All systems reviewed & no additional complaints except as documented Physical Exam General General appearance: alert and in no apparent distress Head Head exam: atraumatic and normocephalic Eye Eye exam: Present normal appearance, PERRL and EOMI ENT ENT exam: Present normal oropharynx and normal external ear exam Neck Neck exam: Present normal inspection and full ROM Chest Chest inspection: Present normal inspection and symmetric chest wall rise; Absent tenderness Respiratory Respiratory exam: Present normal lung sounds bilaterally; Absent respiratory distress Cardiovascular Cardiovascular exam: Present regular rate and normal rhythm Abdominal Exam Abdominal exam: Present soft; Absent distention, tenderness or guarding Extremities Exam Extremities exam: Present normal inspection; Absent edema or joint swelling Back Exam Back exam: Present normal inspection; Absent tenderness Neurological Exam Neurological exam: Present alert and oriented X3; Absent motor sensory deficit Psychiatric Psychiatric exam: Present normal affect and normal mood Skin Skin exam: Present warm, dry and normal color Lymphatic Lymphatic Findings: no adenopathy Medical Decision Making Medical Records Medical records reviewed: Yes I reviewed the patient's medical records. Screening: Per USPSTF and CDC recommendations, given the prevalence of disease in our region, it is our hospital?s policy to screen for HIV and viral Hepatitis for all patients aged 18 and over and those with ongoing risk factors. Harjinder Inquiry Pt receiving controlled substance: No Harjinder was queried for this patient: No Vital Signs: 03/07/25 01:30 03/07/25 03:01 03/07/25 04:39 Temperature 98.8 F Temperature Source Oral Pulse Rate 57 L 63 Pulse Rate [Radial] 62 Respiratory Rate 18 12 36 H Blood Pressure 114/68 136/71 Blood Pressure [Right Arm] 128/61 Blood Pressure Mean [Right Arm] 83 Blood Pressure Position Blood Pressure Position [Right Arm] Sitting 02 Sat by Pulse Oximetry 95 91 L 95 Oxygen Delivery Method Room Air Room Air 03/07/25 05:00 03/07/25 05:38 Temperature 98.8 F Temperature Source Oral Pulse Rate 62 62 Pulse Rate [Radial] Respiratory Rate 13 16 Blood Pressure 132/72 132/72 Blood Pressure [Right Arm] Blood Pressure Mean [Right Arm] Blood Pressure Position Sitting Blood Pressure Position [Right Arm] 02 Sat by Pulse Oximetry 95 Oxygen Delivery Method Room Air Room Air Lab Data Lab results reviewed: Yes I reviewed the patient's lab results. Lab Results 03/07/25 01:48: WBC 13.6 H, RBC 5.07, Hgb 14.6, Hct 43.9, MCV 86.6, MCH 28.8, MCHC 33.3, RDW 14.5, Plt Count 290, MPV 10.4, Neut % (Auto) 62.6, Lymph % (Auto) 29.6, [place] % (Auto) 5.9, Eos % (Auto) 1.2, Baso % (Auto) 0.4, Neut # (Auto) 8.5 H, Lymph # (Auto) 4.0, [place] # (Auto) 0.8, Eos # (Auto) 0.2, Baso # (Auto) 0.1, Sodium 137, Potassium 4.1, Chloride 105, Carbon Dioxide 27, Anion Gap 9.1, BUN 21 H, Creatinine 0.80, Estimated Creat Clear 69, Estimated GFR 76, Est GFR ( Amer) 92, Glucose 304 H, Calcium 8.9, Phosphorus 5.5 H, Magnesium 1.8, Total Bilirubin 0.5, AST 47 H, ALT 43, Alkaline Phosphatase 68, Total Creatine Kinase 324 H, Total Protein 6.8, Albumin 3.9, Globulin 2.9, Albumin/Globulin Ratio 1.3 03/07/25 01:48 03/07/25 01:48 Orders (Tests/Meds): ED MEDICATIONS Discontinued Medications Generic Name Dose Route Start Last Admin Trade Name Pete PRN Reason Stop Dose Admin Calcium Gluconate/Sodium Chloride 2 gm in 100 mls @ 50 mls/hr 03/07/25 02:48 03/07/25 02:52 Calcium Gluconate 2,000mg/100ml Nacl Premix IV 03/07/25 04:47 50 mls/hr ONCE ONE Administration ORDERS Category Date Time Status CBC w/Auto Diff [Complete Blood Count Auto Diff] Stat Lab 03/07/25 01:48 Completed CK [Creatine Kinase] Stat Lab 03/07/25 01:48 Completed CMP [Comprehensive Metabolic Panel] Stat Lab 03/07/25 01:48 Completed Calcium, Ionized Stat Lab 03/07/25 01:48 Received MAG [Magnesium] Stat Lab 03/07/25 01:48 Completed PHOS [Phosphorous] Stat Lab 03/07/25 01:48 Completed EKG Request [ECG Request] Stat Y 03/07/25 01:34 Ordered Medical Decision Narrative: 49-year-old female with history of staghorn calculus with chronic UTI, parathyroidectomy on presents for muscle cramps and paresthesias. History was obtained via interactive discussion with patient, chart review. On arrival, patient is [afebrile, hemodynamically stable, satting appropriately, alert, oriented x4, GCS 15], moving all extremities spontaneously. Full physical exam performed and significant for no significant physical exam abnormalities. Presentation seems most consistent with hypocalcemia related to recent parathyroidectomy. Blood work was obtained and independently turbid by me. Patient has mild leukocytosis and low normal calcium as well as mild hyperphosphatemia. CK was obtained which shows mild elevation at 324. I ordered an ionized calcium but according to our lab, that test is a send out and we are unable to obtain it. I am concerned that she may still be having symptomatic hypocalcemia despite the normal serum calcium on the CMP. 2 g of IV calcium gluconate were ordered. After calcium, patient reports mild symptomatic improvement. She reports that her muscles remain sore. No indication for admission at this time. CK is mildly elevated which could explain her muscle soreness. Recommended she follow-up with her team and get repeat labs if her symptoms are worsening. Patient is agreeable to plan and discharged in stable condition return precautions. Procedures Risk/Benefits of Procedure(s) Were Explained: Yes Critical Care Critical Care Time Critical Care Time: No
[2025-03-07 01:30] VITALS: BP 128/61; PULSE 62; RESP 18; TEMP 37.1; O2SAT 95; BMI 49.6
--- NOTE | 2025-03-07 01:34 | ECG_ITS ---
APPROVED REPORT Exam: Resting ECG HR:61 bpm ECG Measurements Heart Rate 61 AXES CA 142 P 53 QRSd 89 QRS 60 QT 418 T 57 QTc [address] ELEVATION, CONSIDER INFERIOR INJURY [MARKED ST ELEVATION W/O NORMALLY INFLECTED T-WAVE IN II/aVF] ACUTE UT UNCONFIRMED REPORT Electronically signed by : ERIC FRANCOIS, 03/07/2025 23:42:36
--- OUTSIDE RECORDS SUMMARY | 2025-03-07 01:47 | XMS_ITS | Continuity of Care Document ---
Author Organization [facility] & [facility] Infectious Disease -105 Address [address] [place] [address] Care Team Providers Care Outcomes Analyst Name Role Phone ZAHRAA BENAVIDES Primary Care Provider Assessment No assessment recorded. Plan of Treatment Reminders Order Date Submit Date Provider Last Modified By Organization Details Last Modified Time Details Appointments Establish ed Visit 15 min 2024 01:45P M Marilou nation APRN Not available Not available Not available Lab None recorded. Referral None recorded. Procedures None recorded. Surgeries None recorded. Imaging None recorded. Medication Orders None recorded. Patient TargetsNo targets recorded. Patient InstructionsNo instructions recorded. Reason for Referral None Reported. Problems Name Problem SNOMED Code Status Onset Date Resolution Date Notes Provider Name and Address Organization Details Recorded Time Syncope 123395804 Active 2021 Malina Hernandez DO [address], [place], [address] , [facility] & [place] 2 15:33:04 Hypersomnia 87774246 Active 2021 Malina Hernandez DO [address], [place], [address] , [facility] & [place] 2 15:34:08 Problem Notes None recorded. Procedures Surgical History Date Name Laterality Status Provider Name and Address Organization Details Recorded Time 09/25/20 23 Cystoscopy-Female completed Silvio Valdez MD [address], [place], [address], [facility] & [place] 09/25/2023 15:26:11 04/04/20 22 Date of Last Pap Smear completed Vandana ELLER - LPNT - [place] & [place] 10/03/2022 14:31:43 10/28/19 22 Ict Managers Surgery completed Vandana ELLER - [facility]NT [facility] & [place] 10/03/2022 14:45:45 10/28/19 17 Cholecystectomy completed Vandana Beckera RAFITA - [facility] - [place] & [place] 10/03/2022 14:32:27 10/28/19 14 Other completed Vandana Beckera RAFITA - [facility] - [place] & [place] 10/03/2022 14:44:51 cardiac catheterization completed Vandana ELLER - LPNT - [place] & [place] 10/03/2022 14:46:31 strabismus surgery completed Vandana ELLER - LPNT [facility] & [place] 10/03/2022 14:55:15 Imaging Results None recorded. Procedure Notes None recorded. Medical Equipment None Reported. Allergies Allergen ID Allergen Name Allergen Category Reaction Reaction Severity Criticality Documentation Date Start Date Code Code System Note Provider Name and Address Organization Details Recorded Time 93833 aspirin medicatio n chest pain wheezing moderate severe Not available 10/02/2022 1191 RxNorm Vandana catherine, RAFITA - [facility] & [place] 2 09:22:42 38683 Bactrim medicatio n arthralgi a (joint pain) muscle cramps severe severe Not available 10/02/2022 77256 9 RxNorm Vandana Harris null, RAFITA - [facility] & [place] 2 09:22:49 04301 insect venom environme nt confusion cough dizziness fever flushing headache wheezing moderate moderate moderate mild moderate moderate moderate Not available 10/02/2022 44565 UNK Vandana Harris null, [place] - [facility] & [place] 2 09:23:13 04705 Pneumococ georges vaccine Not available anaphylax is chest pain facial swelling nausea rash wheezing moderate moderate moderate moderate moderate moderate Not available 10/02/2022 75263 7 RxNorm Vandana Eugenioa null, [place] - [facility] & [place] 2 09:23:25 78022 rosuvasta tin medicatio n eye swelling facial swelling respirato ry distress moderate moderate moderate Not available 10/02/2022 56575 2 RxNorm Vandana RAFITA Fischer - [place] - [place] & [place] 2 09:23:35 Medications Name Sig Start Date Stop Date Status Note LastModified by Organization Details LastModified Time amoxicillin 500 mg capsule TAKE TWO CAPSULES BY MOUTH TWICE DAILY FOR 10 DAYS -- FINISH ALL MEDICINE -- 02/23 completed Not Available Not Available Not Available furosemide 40 mg tablet TAKE TWO [...] 2 days, then stop --take with food-- 02/23 completed Not Available Not Available Not Available doxycycline hyclate 100 mg capsule TAKE ONE CAPSULE BY MOUTH TWICE DAILY FOR 10 DAYS -- FINISH ALL MEDICINE -- 02/23 completed Not Available Not Available Not Available ipratropium 0.5 mg-albutero l 3 mg (2.5 mg base)/3 mL nebulizatio n soln INHALE THE CONTENTS OF 1 VIAL VIA NEBULIZER FOUR TIMES DAILY DIRECTED 02/23 completed Not Available Not Available Not Available nitroglycer in 0.1 mg/hr transdermal 24 hour patch apply 1 PATCH TO THE SKIN DIRECTED BY PROVIDER DAILY 02/23 completed Not Available Not Available Not Available bumetanide 2 mg tablet TAKE ONE TABLET BY MOUTH TWICE DAILY active Not Available Not Available No t Available Vitamin C 500 mg tablet TAKE ONE TABLET BY MOUTH TWICE DAILY 2024 active Not Available Not Available Not Avai lable azithromyci n 250 mg tablet TAKE 2 TABLETS BY MOUTH ON DAY 1, THEN TAKE 1 TABLET DAILY ON DAYS 2-5 02/23 completed Not Available Not Available Not Available fosfomycin tromethamin e 3 gram oral packet TAKE 1 PACKET BY MOUTH TWICE A WEEK (EVERY 3-4 DAYS) 02/23 completed Not Available Not Available Not Available pravastatin 40 mg tablet TAKE ONE TABLET BY MOUTH EVERY DAY AT BEDTIME 02/23 completed Not Available Not Available Not Available ibuprofen 800 mg tablet TAKE ONE TABLET BY MOUTH THREE TIMES DAILY NEEDED --TAKE WITH FOOD-- active Not Available Not Available No t Available tizanidine 4 mg tablet TAKE ONE TABLET BY MOUTH THREE TIMES DAILY NEEDED MAY CAUSE DROWSINES S 2024 active Not Available Not Available Not Avai lable fluconazole 150 mg tablet TAKE ONE TABLET BY MOUTH as a one-time DOSE FOR yeast infection . MAY REPEAT in 3 DAYS if needed 02/23 completed Not Available Not Available Not Available metoprolol succinate ER 50 mg tablet,exte nded release 24 hr TAKE ONE TABLET BY MOUTH ONCE DAILY FOR BLOOD PRESSURE 10/02 completed Not Available Not Available Not Available hydrocodone 5 mg-acetamin ophen 325 mg tablet TAKE ONE TABLET BY MOUTH EVERY 4-6 HOURS NEEDED FOR PAIN MAY CAUSE DROWSINES S 02/23 completed Not Available Not Available Not Available senna 8.6 mg tablet TAKE ONE TABLET BY MOUTH TWICE DAILY NEEDED FOR CONSTIPAT ION 2024 active Not Available Not Available Not Avai lable sucralfate 1 gram tablet TAKE ONE TABLET BY MOUTH FOUR TIMES DAILY 02/23 completed Not Available Not Available Not Available phenazopyri dine 200 mg tablet TAKE ONE TABLET BY MOUTH THREE TIMES DAILY NEEDED FOR painful urination --TAKE WITH FOOD-- 2024 active Not Available Not Available Not Avai lable ondansetron HCl 4 mg tablet TAKE ONE TABLET BY MOUTH EVERY 8 HOURS NEEDED FOR NAUSEA AND VOMITING 02/23 completed Not Available Not Available Not Available prednisone 20 mg tablet TAKE THREE TABLETS BY MOUTH ONCE DAILY FOR 5 DAYS --TAKE WITH FOOD-- 02/23 completed Not Available Not Available Not Available acetaminoph en 300 mg-codeine 30 mg tablet TAKE ONE TABLET BY MOUTH EVERY 6 HOURS NEEDED MAY CAUSE DROWSINES S 02/23 completed Not Available Not Available Not Available ciprofloxac in 250 mg tablet TAKE ONE TABLET BY MOUTH EVERY TWELVE HOURS FOR 3 DAYS -- FINISH ALL MEDICINE -- 10/02 completed Not Available Not Available Not Available ciprofloxac in 500 mg tablet TAKE ONE TABLET BY MOUTH TWICE DAILY FOR 7 DAYS -- FINISH ALL MEDICINE -- 02/23 completed Not Available Not Available Not Available sulfamethox azole 800 mg-trimetho prim 160 mg tablet TAKE 1 TABLET BY MOUTH TWICE A DAY FOR 7 DAYS 10/02 completed Not Available Not Available Not Available omeprazole 40 mg capsule,del ayed release TAKE ONE CAPSULE BY MOUTH EVERY DAY 2024 active Not Available Not Available Not Avai lable tramadol 50 mg tablet TAKE ONE TABLET BY MOUTH EVERY 6 HOURS NEEDED FOR PAIN MAY CAUSE DROWSINES S 02/23 completed Not Available Not Available Not Available ketorolac 10 mg tablet TAKE ONE TABLET BY MOUTH EVERY 6 HOURS NEEDED FOR PAIN FOR 5 DAYS --TAKE WITH FOOD-- 02/23 completed Not Available Not Available Not Available bisoprolol fumarate 5 mg tablet TAKE ONE TABLET BY MOUTH EVERY DAY FOR heart 10/02 completed Not Available Not Available Not Available oxycodone-a cetaminophe n 5 mg-325 mg tablet TAKE ONE TABLET BY MOUTH EVERY 6 HOURS NEEDED FOR PAIN MAY CAUSE DROWSINES S 02/23 completed Not Available Not Available Not Available methenamine hippurate 1 gram tablet TAKE ONE TABLET BY MOUTH TWICE DAILY active Not Available Not Available No t Available lorazepam 0.5 mg tablet TAKE ONE TABLET BY MOUTH BEFORE mri, MAY take second tablet if needed. MAY CAUSE DROWSINES S 02/23 completed Not Available Not Available Not Available pravastatin 10 mg tablet TAKE ONE TABLET BY MOUTH EVERY DAY AT BEDTIME 2024 active Not Available Not Available Not Avai lable furosemide 80 mg tablet Take 1 tablet [...] BY MOUTH EVERY DAY --TAKE WITH FOOD-- 02/23 completed Not Available Not Available Not Available promethazin e 25 mg tablet TAKE 1/2 TO 1 TABLET BY MOUTH EVERY 6 HOURS NEEDED FOR NAUSEA AND VOMITING 2024 active Not Available Not Available Not Avai lable Advair Diskus 250 mcg-50 mcg/dose powder for inhalation inhale 1 PUFF BY MOUTH TWICE DAILY 02/23 completed Not Available Not Available Not Available indomethaci n 50 mg capsule TAKE ONE CAPSULE BY MOUTH THREE TIMES DAILY with meals 02/23 completed Not Available Not Available Not Available nitroglycer in 0.4 mg sublingual tablet [...] WITH FOOD-- -- FINISH ALL MEDICINE -- 02/23 completed Not Available Not Available Not Available colchicine 0.6 mg tablet TAKE ONE TABLET BY MOUTH TWICE DAILY 02/23 completed Not Available Not Available Not Available oxybutynin chloride 5 mg tablet TAKE ONE TABLET BY MOUTH TWICE DAILY NEEDED FOR BLADDER SPASMS 2024 active Not Available Not Available Not Avai lable cefdinir 300 mg capsule TAKE ONE CAPSULE BY MOUTH EVERY TWELVE HOURS FOR 10 DAYS -- FINISH ALL MEDICINE -- 02/23 completed Not Available Not Available Not Available cholecalcif jenna (vitamin D3) 125 mcg (5,000 unit) capsule TAKE ONE CAPSULE BY MOUTH EVERY OTHER DAY 02/23 completed Not Available Not Available Not Available spironolact one 50 mg tablet TAKE ONE TABLET BY MOUTH EVERY DAY 2024 active Not Available Not Available Not Avai lable amoxicillin 875 mg-potassiu m clavulanate 125 mg tablet TAKE ONE TABLET BY MOUTH TWICE DAILY FOR 7 DAYS -- FINISH ALL MEDICINE -- 02/23 completed Not Available Not Available Not Available Ventolin HFA 90 mcg/actuati on aerosol inhaler INHALE TWO PUFFS BY MOUTH EVERY 4 TO 6 HOURS NEEDED 02/23 completed Not Available Not Available Not Available oxycodone 5 mg tablet TAKE ONE TABLET BY MOUTH EVERY 8 HOURS NEEDED FOR PAIN MAY CAUSE DROWSINES S active Not Available Not Available No t Available rosuvastati n 40 mg tablet TAKE ONE TABLET BY MOUTH EVERY DAY 09/17 completed Not Available Not Available Not Available nitrofurant oin monohydrate /macrocryst als 100 mg capsule Take 1 capsule every 12 hours by oral route as directed for 10 days. 2024 active Not Available Not Available Not Avai lable Januvia 25 mg tablet TAKE ONE TABLET BY MOUTH EVERY DAY 02/23 completed Not Available Not Available Not Available calcium 500 mg (as carbonate)- vitamin D3 3.125 mcg (125 unit) tablet Take by oral route. active Not Available Not Available No t Available nebivolol 5 mg tablet TAKE ONE TABLET BY MOUTH EVERY DAY active Not Available Not Available No t Available tramadol ER 100 mg tablet,exte nded release 24hr mphase Take 1 tablet every day by oral route. 2024 active Not Available Not Available Not Avai lable OneTouch Verio test strips USE TO TEST BLOOD SUGAR ONCE DAILY DIRECTED active Not Available Not Available No t Available Farxiga 10 mg tablet TAKE ONE TABLET BY MOUTH EVERY DAY 02/23 completed Not Available Not Available Not Available Jardiance 25 mg tablet TAKE ONE TABLET BY MOUTH EVERY DAY 02/23 completed Not Available Not Available Not Available Trulicity 1.5 mg/0.5 mL subcutaneou s pen injector INJECT 1.5MG (0.5ML) SUBCUTANE OUSLY ONCE WEEKLY 02/23 completed Not Available Not Available Not Available Trulicity 0.75 mg/0.5 mL subcutaneou s pen injector inject 0.75mg (0.5ml) subcutane ously ONCE WEEKLY as directed 02/23 completed Not Available Not Available Not Available Glyxambi 25 mg-5 mg tablet TAKE ONE TABLET BY MOUTH ONCE DAILY IN THE MORNING 02/23 completed Not Available Not Available Not Available Entresto 49 mg-51 mg tablet TAKE ONE TABLET BY MOUTH TWICE DAILY FOR BLOOD PRESSURE AND congestiv e heart failure 02/23 completed Not Available Not Available Not Available Entresto 24 mg-26 mg tablet TAKE [...] MOUTH EVERY DAY --RINSE MOUTH AFTER USE-- 2024 active Not Available Not Available Not Avai lable turmeric 400 mg capsule Take 1 capsule twice a day by oral route. 2024 active Not Available Not Available Not Avai lable albuterol sulf 90 mcg/actuati on breath activated powder inhaler,sen sor Inhale 2 puffs every 4 hours by inhalatio n route. active Not Available Not Available No t Available Ozempic 1 mg/dose (4 mg/3 mL) subcutaneou s pen injector INJECT 1 MG SUBCUTANE OUSLY ONCE WEEKLY DIRECTED 02/23 completed Not Available Not Available Not Available Flowflex COVID-19 Antigen Home Test kit USE ACCORDING TO PACKAGE INSTRUCTI ONS 02/23 completed Not Available Not Available Not Available Mounjaro 2.5 mg/0.5 mL subcutaneou s pen injector INJECT THE CONTENTS OF 1 PEN (2.5MG/0. 5ML) SUBCUTANE OUSLY ONCE WEEKLY active Not Available Not Available No t Available Ozempic 0.25 mg or 0.5 mg (2 mg/3 mL) subcutaneou s pen injector INJECT 0.5 MG SUBCUTANE OUSLY DIRECTED ONCE A WEEK 02/23 completed Not Available Not Available Not Available Vitals Date Recorded Body height Heart rate Oxygen saturation Oxygen saturation in Arterial blood by Pulse oximetry Heart rate Body temperature Body mass index (BMI) Body weight Systolic blood pressure Diastolic blood pressure Provider Name and Address Organization Details Last Updated DateTime 5 160.02 cm 60 /min 97 % 97 % 60 /min 97.7 [degF] 49.6 kg/m2 550361. 86 g 119 mm[Hg] 79 mm[Hg] Bianca Smith [facility] & [place] 5 13:31:54 Social History Question Answer Notes LastModified by OrganKeepGoat ion Details LastModified Time Tobacco Smoking Status [facility] [place] 10/03/2022 14:32:09 Do You Have An Advance Directive? No Information not available 10/03/2022 What Is Your Level Of Alcohol Consumption? Occasional Information not available 10/03/2022 Are You Blind Or Do You Have Difficulty Seeing? No Information not available 10/03/2022 Are You Currently Employed? No [employer] [email or web address] Information not available 09/25/2023 What Was The Date Of Your Most Recent Tobacco Screening? 09/17/2022 Information not available 10/03/2022 Do You Have Any Pets? Yes [email or web address] Information not available 09/25/2023 Are You Passively Exposed To Smoke? No Information not available 10/03/2022 Do You Feel Stressed (tense, Restless, Nervous, Or Anxious, Or Unable To Sleep At Night)? [id number] Information not available 10/03/2022 Do You Use Any Illicit Or Recreational Drugs? No Information not available 10/03/2022 Are You Currently In School? No [employer] [email or web address] Information not available 09/25/2023 Sex: Female Functional [...] Heart Failure (CHF) Y Back Problems Y COPD Y GI Problems Y Lung Disease Y Asthma Y Pneumonia Y Anemia Y Reflux/GERD Y [...] SNOMED-CT Code Diagnosis ICD10 Code Diagnosis Note [id number] [facility]ou [facility] Infect[facility]ou s Disease -105 [address] [facility] [address] [place] [address] 02/23/2025 13:48:33 02/23/2025 14:17:11 Recurrent urinary tract infection 983670637 N39.0 Will check lab work. Will send urine off for a culture. Will see patient back in 1 week. 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 Patient will follow up in 2 weeks. Call the office if anything persists or worsens. 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 (MEDICAID HMO) [facility] [id number] [facility] Notes Date Note Type Note Provider Name and Address Organization Details Recorded Time 03/02/2025 text/html patient presents to clinic for follow up. Urine culture results received. Patient denies any fever. She is scheduled to have surgery to remove her stone on . Marilou David, FIRE CONTROL TECHNICIAN [address], [place], [address], [facility] - [place] & [place] 03/02/2025 13:35:40 OBGyn Episode No OBEpisode recorded.
--- OUTSIDE RECORDS SUMMARY | 2025-03-07 01:47 | XMS_ITS | Data Portability ---
Author Organization [facility] Mahamed lomeli, ABHAYS LINN CLOSED Address [address] [place] [address] Assessment No assessment recorded. Plan of Treatment Reminders Order Date Submit Date Provider Last Modified By Organization Details Last Modified Time Details Appointments None recorded. Lab None recorded. Referral aquatic therapy referral 2017 018 2 Not available 8 11:14:18 cognitive behavioral therapy referral 2017 018 [email or web address] 2 [facility] [address], [address], [place], [address], 8 11:14:19 occupationa l therapist referral 2017 018 [email or web address] 2 Not available 8 11:14:17 Procedures None recorded. Surgeries None recorded. Imaging None recorded. Medication Orders None recorded. Patient TargetsNo targets recorded. Patient Instructions Encounter Date Encounter Id Patient Instructions Last Modified By Organization Details Last Modified Time 08/13/2018 [id number] learning about healthy weight Not available 08/13/2018 [...] Name and Address Organization Details Recorded Time 986715 aspirin medicatio n Not available Not available Not available 08/13/2018 1191 RxNorm Melinda Hudson [facility] 8 10:01:54 Medications Name Sig Start [...] Address Organization Details Last Updated DateTime 8 760096. 12 g 48.2 kg/m2 160.02 cm 18 /min 61 /min 132 mm[Hg] 96 mm[Hg] Melinda Hudson [facility] 8 10:06:40 Social History Question Answer Notes LastModified by Organizat ion Details LastModified Time Tobacco Smoking Status Never Smoker Melinda Hudson [facility] 08/13/2018 10:02:03 What Was The Date Of Your Most Recent Tobacco Screening? 08/13/2018 Information n ot available 12/15/2019 Sex: Unknown Functional Status None recorded. Mental Status None recorded. Family History Relationship Description Onset Age of this Age Resolved Age Notes LastModified by Organization Details LastModified Time Father No current problems or disability [email or web address] Not available 08/13 10:02:01 Mother No current problems or disability [email or web address] Not available 08/13 10:02:01 Medical History Condition Response Emphysema N COPD N Diabetes N Bleeding Disorder N Arthritis Y Acid Reflux (GERD) Y Asthma Y Heart Disease Y Rheumatoid Arthritis N Hypertension Y Gynecological HistoryNo gynecological history recorded. Obstetrics History GPAL:G 0 P 0 0 0 0 Past Encounters Encounter ID Performer Location Encounter Start Date Encounter Closed Date Diagnosis/Indication Diagnosis SNOMED-CT Code Diagnosis ICD10 Code Diagnosis Note [id number] CLIFF BARBER MD RHE[facility] [address] [place] [address] 08/13/2018 09:13:44 08/13/2018 10:48:47 Pain of multiple joints 48513887 M25.50 she has clinical features of Dixon OA. no features of an inflammato ry arthritis noted. no features of rheumatoid noted. 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 would suggest to avoid steroids and start OT as stated below. she can RTC with me as prn. Fibromyalgia 225514744 M 79.7 she has clinical features suggestive [...] OT to help with the ROM and dairy consultant. 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 Health Concerns Section Related Observation LastModified by Organization Detai ls LastModified Time None Recorded Concern Status LastModified by Organization Details LastModified Time None Recorded Advance Directives Directive None Recorded Payers Insurance Date Sequence Insurance Name Policy Number Policy Valdivia Covered Member ID Valdivia Member ID Guarantor Name 02/03/2024 1 [facility] [id number] 01/24/2024 1 [place] [place]FS/TRADITIO NAL [facility] [id number] [facility] 02/04/2024 1 [facility] [id number] [facility] 01/31/2024 1 [place] [id number] [facility] [id number] [facility] Notes Date Note Type Note [...] and a normal TSH. CLIFF BARBER MD [facility], [place], [address], [facility] 08/13/2018 17:00:47 OBGyn Episode No OBEpisode recorded.
--- OUTSIDE RECORDS SUMMARY | 2025-03-07 01:47 | XMS_ITS | Continuity of Care Document ---
Author Organization [facility] & [facility] Infectious Disease -[address] [place] [address] Care Team Providers Care Medicare Contact Specialist Name Role Phone SHERI BENAVIDESGHT Primary Care Provider Assessment No assessment recorded. Plan of Treatment Reminders Order Date Submit Date Provider Last Modified By Organization Details Last Modified Time Details Appointments Establish ed Visit 15 min 2024 01:45P M Marilou nation APRN Not available Not available Not available Lab urinalysi s, dipstick 2024 025 [email or web address] [facility] Infectious Disease -105, [address], [place], [address], 02/23/2025 14:18:52 CBC w/ diff 2024 025 [facility] (Registration ), [address] , [place], [address], 02/23/2025 16:11:55 CMP, serum or plasma 2024 025 [facility] (Registration ), [address] , [place], [address], 02/23/2025 15:39:03 ESR (erythroc yte sedimenta tion rate), blood 2024 025 [facility] (Registration ), [address] , [place], [address], 03/02/2025 04:13:57 C-reactiv e protein, quantitat estefania, serum or plasma 2024 025 [facility] (Registration ), [address], [place], [address], 03/02/2025 04:13:57 culture, urine 2024 025 [facility], [address], [address], [place], [address], 02/27/2025 19:09:52 Referral None recorded. Procedures None recorded. Surgeries None recorded. Imaging None recorded. Medication Orders None recorded. Patient TargetsNo targets recorded. Patient InstructionsNo instructions recorded. Reason for Referral None Reported. Results Created Date Observation Date Name Description Value Unit Range Abnormal Flag Note LastModifiedBy Organization Detail LastModifiedTime 02/24/2002/23/2025 urina lysis , dipst ick Leukocytes (reference range) trace Not Available [facility] Infectious Disease -[facility] [address] [facility] [address], [place], [address], 02/23/2025 14:16:48 02/24/20 25 02/23/2025 urina lysis , dipst ick Nitrite (reference range:) negati ve Not Available [facility] Infectious [facility] [address] [facility] [address], [place], [address], 02/23/2025 14:16:48 02/24/20 25 02/23/2025 urina lysis , dipst ick Urobilinogen (reference range) 0.2 Not Available [facility] Infectious [facility] -105 [address] [facility] [address], [place], [address], 02/23/2025 14:16:48 02/24/20 25 02/23/2025 urina lysis , dipst ick Protein (reference range) negati ve Not Available [facility] Infectious Disease -[facility] [address] [facility] [address], [place], [address], 02/23/2025 14:16:48 02/24/20 25 02/23/2025 urina lysis , dipst ick pH (reference range 5-8.5) 6.0 Not Available [place] [address] [address], [place], [address], 02/23/2025 14:16:48 02/24/20 25 02/23/2025 urina lysis , dipst ick Blood (reference range:) small Not Available [place] [address] [address] [facility] [address], [place], [address], 02/23/2025 14:16:48 02/24/20 25 02/23/2025 urina lysis , dipst ick Specific Ulm (reference range) 1.015 Not Available [place] [address] [address] [facility] [address], [place], [address], 02/23/2025 14:16:48 02/24/20 25 02/23/2025 urina lysis , dipst ick Ketone (reference range) negati ve Not Available [place] [address] [address], [place], [address], 02/23/2025 14:16:48 02/24/20 25 02/23/2025 urina lysis , dipst ick Bilirubin (reference range) negati ve Not Available [place] [address] [address], [place], [address], 02/23/2025 14:16:48 02/24/20 25 02/23/2025 urina lysis , dipst ick Glucose (reference range) 500 Not Available [place] [address] [address] [facility] [address], [place], [address], 02/23/2025 14:16:48 02/24/20 25 02/23/2025 urina lysis , dipst ick Color (reference range: yellow-brown ) Dark Yellow Not Available [facility] Infectious Disease -[address], [place], [address], 02/23/2025 14:16:48 Result Notes None recorded. Problems Name Problem SNOMED Code Status Onset Date Resolution Date Notes Provider Name and Address Organization Details Recorded Time Syncope 195798778 Active 2021 Malina Hernandez DO [address], [place], [address] , [place] - [facility] - [place] & [place] 15:33:04 Hypersomnia 88770690 Active 2021 Malina Hernandez DO [address], [place], [address] , [place] - [facility] - [place] & [place] 15:34:08 Problem Notes None recorded. Procedures Surgical History Date Name Laterality Status Provider Name and Address Organization Details Recorded Time 09/25/20 23 Cystoscopy-Female completed Silvio Valdez MD [address] [facility], [place], [address], [place] - [facility] - [place] & [place] 09/25/2023 15:26:11 04/04/20 22 Date of Last Pap Smear completed Vandana Dalla [place] - [facility] - [place] & [place] 10/03/2022 14:31:43 10/28/19 22 [employer] Surgery completed Vandana Dalla [place] - [facility] - [facility] & [place] 10/03/2022 14:45:45 10/28/19 17 Cholecystectomy completed Vandana Dalla [place] - [facility] - [place] & [place] 10/03/2022 14:32:27 10/28/19 14 Other completed Vandana Dalla [place] - [facility] - [facility] & [place] 10/03/2022 14:44:51 cardiac catheterization completed Vandana Dalla [place] - [facility] - [facility] & [place] 10/03/2022 14:46:31 strabismus surgery completed Vandana Dalla [place] - [facility] - [facility] & [place] 10/03/2022 14:55:15 Imaging Results None recorded. Procedure Notes None recorded. Medical Equipment None Reported. Allergies Allergen ID Allergen Name Allergen Category Reaction Reaction Severity Criticality Documentation Date Start Date Code Code System Note Provider Name and Address Organization Details Recorded Time 56072 aspirin medicatio n chest pain wheezing moderate severe Not available 10/02/2022 1191 RxNorm Vandana catherine, [facility] - [place] [facility] & [place] 2 09:22:42 93114 Bactrim medicatio n arthralgi a (joint pain) muscle cramps severe severe Not available 10/02/2022 68795 9 RxNorm Vandana catherine, RAFITA [place] [facility] & [place] 2 09:22:49 57808 insect venom environme nt confusion cough dizziness fever flushing headache wheezing moderate moderate moderate mild moderate moderate moderate Not available 10/02/2022 91239 UNK Vandana catherine, [facility] DAR[place] [facility] & [place] 2 09:23:13 64203 Pneumococ georges vaccine Not available anaphylax is chest pain facial swelling nausea rash wheezing moderate moderate moderate moderate moderate moderate Not available 10/02/2022 58780 7 RxNorm Vandana catherine, RAFITA [place] [facility] & [place] 2 09:23:25 83280 rosuvasta tin medicatio n eye swelling facial swelling respirato ry distress moderate moderate moderate Not available 10/02/2022 30542 2 RxNorm Vandana catherine, RAFITA She[place] [facility] & [place] 2 09:23:35 Medications Name Sig [...] Not Available Not Available Vitals Date Recorded Heart rate Body height Oxygen saturation Oxygen saturation in Arterial blood by Pulse oximetry Heart rate Body temperature Body mass index (BMI) Body weight Systolic blood pressure Diastolic blood pressure Provider Name and Address Organization Details Last Updated DateTime 80 /min 160.02 cm 96 % 96 % 80 /min 98.6 [degF] 49.6 kg/m2 217656. 86 g 116 mm[Hg] 100 mm[Hg] Bianca Smith [facility] & [place] 13:59:18 Social History Question Answer Notes LastModified by Organizat ion Details LastModified Time Tobacco Smoking Status Never Smoker Vandana catherine, [facility] & [place] 10/03/2022 14:32:09 Do You Have An Advance Directive? No Information not available 10/03/2022 What Is Your Level Of Alcohol Consumption? Occasional Information not available 10/03/2022 Are You Blind Or Do You Have Difficulty Seeing? No Information not available 10/03/2022 Are You Currently Employed? No [employer] [email or web address] Information not available 09/25/2023 What Was The Date Of Your Most Recent Tobacco Screening? 09/17/2022 Information not available 10/03/2022 Do You Have Any Pets? Yes [email or web address] Information not available 09/25/2023 Are You Passively Exposed To Smoke? No Information not available 10/03/2022 Do You Feel Stressed (tense, Restless, Nervous, Or Anxious, Or Unable To Sleep At Night)? [id number] Information not available 10/03/2022 Do You Use Any Illicit Or Recreational Drugs? No Information not available 10/03/2022 Are You Currently In School? No [employer] [email or web address] Information not available 09/25/2023 Sex: Female Functional [...] SNOMED-CT Code Diagnosis ICD10 Code Diagnosis Note [id number] Marilou Herbert in, [employer] [facility] Infectiou s Disease -[address] [place] [address] [address] [place] [address] 02/23/2025 13:48:33 02/23/2025 14:17:11 Recurrent urinary tract infection 383505999 N39.0 Will check lab work. Will send urine off for a culture. Will see patient back in 1 week. Health Concerns Section Related Observation LastModified by Organization Detai ls LastModified Time None Recorded Concern Status LastModified by Organization Details LastModified Time None Recorded Payers Encounter Date Sequence Insurance Name Policy Number Policy Valdivia Covered Member ID Valdivia Member ID Guarantor Name 02/23/2025 1 [employer] [facility] (MEDICAID HMO) [facility] [id number] [facility] Notes Date Note Type Note Provider Name and Address Organization Details Recorded Time 02/23/2025 text/html patient presents to clinic for history of recurrent urinary tract infections. Patient presents with nephrolithiasis. She was initially admitted to the hospital for staghorn calculus. Patient has a history of sepsis and multi drug resistance. Patient is a diabetic. She is currently taking Hiprex and Methenamine. She reports bilateral kidney pain. She reports lower abdominal pain. She denies any fever. She has multiple allergies/intolerance to fluoroquinolones, sulfa drugs, and augmentin. 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 Patient is scheduled to have a parathyroidectomy on March 04, 2025. She is scheduled to have surgery with urology in April 2025. Marilou David, [employer] [address], [place], [address], [facility] - [place] - [place] & [place] 02/24/2025 10:59:38 OBGyn Episode No OBEpisode recorded.
--- OUTSIDE RECORDS SUMMARY | 2025-03-07 01:48 | XMS_ITS | Data Portability ---
Author Organization [facility] [place] [facility] [place] [facility] [place] Alejandro ADMIN Address [address] [place] [address] Care Team Providers Care Handling Tech Name Role Phone ZAHRAA BENAVIDES Primary Care Provider Assessment Encounter Date Assessment Date Assessment LastModified by Organization Details LastModified Time 08/07/2023 08/07/[address] scan images onto our system. Will review to determine the degree of stone burden bilaterally in the kidneys. Will also plan cystoscopy and pelvic exam in the office in the near future. [email or web address] Not available 08/07/2023 15:34:46 09/25/2023 09/25/2023 I [...] available Lab urinalysi s, dipstick 2024 025 [facility] -[facility], [address], [place], [address], 02/23/2025 14:18:52 CBC w/ diff 2024 025 [facility] (Registration ), [address] [facility], [place], [address], 02/23/2025 16:11:55 CMP, serum or plasma 2024 025 [facility] (Registration ), [address] [facility], [place], [address], 02/23/2025 15:39:03 ESR (erythroc yte sedimenta tion rate), blood 2024 025 [facility] (Registration ), [address] [facility], [place], [address], 03/02/2025 04:13:57 C-reactiv e protein, quantitat estefania, serum or plasma 2024 025 [facility] (Registration ), [address] [facility], [place], [address], 03/02/2025 04:13:57 culture, urine 2024 025 [employer] [facility], [address], [address], [place], [address], 02/27/2025 19:09:52 urinalysi s, dipstick 2022 023 [email or web address] [facility], [address] [facility], [address], [place], [address], 08/07/2023 16:08:29 Referral None recorded. Procedures None recorded. Surgeries None recorded. Imaging None recorded. Medication Orders None recorded. Patient TargetsNo targets recorded. Patient InstructionsNo instructions recorded. Reason for Referral None Reported. Results Created Date Observation Date Name Description Value Unit Range Abnormal Flag Note LastModifiedBy Organization Detail LastModifiedTime 04/02/20 23 04/03/2023 LUTEI NIZIN G HORMO NE luteinizing hormone (LH), ser 7.1 mIU/m L Adult Femal e: Folli cular phase 2.4 - 12.6 Ovula tion phase 14.0 - 95.6 Lutea l phase 1.0 - 11.4 Postm enopa usal 7.7 - 58.5 Perfo rmed at: [address] [id number] Lab Direc tor: Los carson PhD, Phone : [phone] Not Available [facility] ([facility]) [address] [place], [address], 04/03/2023 10:13:10 04/02/20 23 04/03/2023 FSH FSH, serum 5.4 mIU/m L Adult Femal e: Folli cular phase 3.5 - 12.5 Ovula tion phase 4.7 - 21.5 Lutea l phase 1.7 - 7.7 Postm enopa usal 25.8 - 134.8 Perfo rmed at: [address] [address] Lab Direc tor: Los carson PhD, Phone : [phone] Not Available [facility] ([facility]) [address] [place], [address], 04/03/2023 10:14:16 08/07/20 23 08/07/2023 urina lysis , dipst ick Leukocytes (reference range) trace Not Available [facility] [address] [place] [address], [address], 08/07/2023 15:15:15 08/07/20 23 08/07/2023 urina lysis , dipst ick Nitrite (reference range:) negati ve Not Available [facility] [address] [place] [address], [phone], 08/07/2023 15:15:15 08/07/2008/07/2023 urina lysis , dipst ick Urobilinogen (reference range) 0.2 Not Available [facility] [address] [place] [address] [address], [place], [address], 08/07/2023 15:15:15 08/07/2008/07/2023 urina lysis , dipst ick Protein (reference range) negati ve Not Available [facility] [address] [place] [address] [address], [place], [address], 08/07/2023 15:15:15 08/07/2008/07/2023 urina lysis , dipst ick pH (reference range 5-8.5) 6.0 Not Available [facility] [address] [place] [address] [address], [place], [address], 08/07/2023 15:15:15 08/07/2008/07/2023 urina lysis , dipst ick Blood (reference range:) small Not Available [facility] [address] [place] [address] [address], [place], [address], 08/07/2023 15:15:15 08/07/2008/07/2023 urina lysis , dipst ick Specific [place] (reference range) 1.015 Not Available [facility] [address] [place] [address] [address], [place], [address], 08/07/2023 15:15:15 08/07/2008/07/2023 urina lysis , dipst ick Ketone (reference range) negati ve Not Available [facility] [address] [place] [address] [address], [place], [address], 08/07/2023 15:15:15 08/07/2008/07/2023 urina lysis , dipst ick Bilirubin (reference range) negati ve Not Available [facility] [address], [place], [address], 08/07/2023 15:15:15 08/07/2008/07/2023 urina lysis , dipst ick Glucose (reference range) 250 Not Available [facility] [address] [facility] [address], [place], [address], 08/07/2023 15:15:15 08/07/2008/07/2023 urina lysis , dipst ick Color (reference range: yellow-brown ) Yellow Not Available [facility] [address] [facility] [address], [place], [address], 08/07/2023 15:15:15 02/24/20 25 02/23/2025 CBC AUTO W DIFF WBC 11.3 K/uL 4.0-10 .5 high Not Available [facility] ([facility]) [address] [facility], [place], [address], 02/23/2025 15:02:28 02/24/20 25 02/23/2025 CBC AUTO W DIFF RBC 5.7 M/mm3 4.2-6. 4 Not Available [facility] ([facility]) [address] [facility], [place], [address], 02/23/2025 15:02:28 02/24/20 25 02/23/2025 CBC AUTO W DIFF HGB 15.8 gm/dL 12.5-1 6.0 Not Available [facility] ([facility]) [address] [facility], [place], [address], 02/23/2025 15:02:28 02/24/20 25 02/23/2025 CBC AUTO W DIFF HCT 48.8 % 37.0-4 7.0 high Not Available [facility] ([facility]) [address] [facility], [place], [address], 02/23/2025 15:02:28 02/24/20 25 02/23/2025 CBC AUTO W DIFF MCV 86.4 fL 78-100 Not Available [facility] ([facility]) [address] , [place], [address], 02/23/2025 15:02:28 02/24/20 25 02/23/2025 CBC AUTO W DIFF MCH 28.0 pg 27-31 Not Available [facility] ([facility]) [address] , [place], [address], 02/23/2025 15:02:28 02/24/20 25 02/23/2025 CBC AUTO W DIFF MCHC 32.4 g/dL 32-36 Not Available [facility] ([facility]) [address], [place], [address], 02/23/2025 15:02:28 02/24/20 25 02/23/2025 CBC AUTO W DIFF RDW 13.7 % 11.5-1 4.0 Not Available [facility] ([facility]) [address] , [place], [address], 02/23/2025 15:02:28 02/24/20 25 02/23/2025 CBC AUTO W DIFF platelet count 380 K/uL 150-45 0 Not Available [facility] ([facility]) [address] , [place], [address], 02/23/2025 15:02:28 02/24/20 25 02/23/2025 CBC AUTO W DIFF MPV 10.3 fL 6-9.5 high Not Available [facility] ([facility]) [address], [place], [address], 02/23/2025 15:02:28 02/24/20 25 02/23/2025 CBC AUTO W DIFF neutrophil% 66.5 % 43-65 high Not Available [facility] ([facility]) [address], [place], [address], 02/23/2025 15:02:28 02/24/20 25 02/23/2025 CBC AUTO W DIFF lymphocyte% 24.3 % 20.5-4 5.5 Not Available [facility] ([facility]) [address], [place], [address], 02/23/2025 15:02:28 02/24/20 25 02/23/2025 CBC AUTO W DIFF monocyte% 6.0 % 5.5-11 .7 Not Available [facility] ([facility]) [address] [facility], [place], [address], 02/23/2025 15:02:28 02/24/20 25 02/23/2025 CBC AUTO W DIFF eosinophil% 2.3 % 0.9-2. 9 Not Available [facility] ([facility]) [address] [facility], [place], [address], 02/23/2025 15:02:28 02/24/20 25 02/23/2025 CBC AUTO W DIFF basophil% 0.6 % 0.2-1. 0 Not Available [facility] ([facility]) [address], [place], [address], 02/23/2025 15:02:28 02/24/20 25 02/23/2025 CBC AUTO W DIFF immature granulocytes % 0.3 % 0.0-0. 8 Not Available [facility] ([facility]) [address] [facility], [place], [address], 02/23/2025 15:02:28 02/24/20 25 02/23/2025 CBC AUTO W DIFF nucleated red blood cells % 0.0 % Not Available [facility] ([facility]) [address] [facility], [place], [address], 02/23/2025 15:02:28 02/24/20 25 02/23/2025 CBC AUTO W DIFF neutrophil# 7.5 K/uL 2.2-4. 8 high Not Available [facility] ([facility]) [address] [facility], [place], [address], 02/23/2025 15:02:28 02/24/20 25 02/23/2025 CBC AUTO W DIFF lymphocyte# 2.7 cell/ mcL 1.3-2. 9 Not Available [facility] ([facility]) [address] [facility], [place], [address], 02/23/2025 15:02:28 02/24/20 25 02/23/2025 CBC AUTO W DIFF monocyte# 0.7 cell/ mcL 0.3-0. 8 Not Available [facility] ([facility]) [address] [facility], [place], [address], 02/23/2025 15:02:28 02/24/20 25 02/23/2025 CBC AUTO W DIFF eosinophil# 0.3 cell/ mcL 0-0.2 high Not Available [facility] ([facility]) [address] [facility], [place], [address], 02/23/2025 15:02:28 02/24/20 25 02/23/2025 CBC AUTO W DIFF basophil# 0.1 cell/ mcL 0.0-1. 0 Not Available [facility] ([facility]) [address] [place], [address], 02/23/2025 15:02:28 02/24/20 25 02/23/2025 CBC AUTO W DIFF immature gramulocytes # 0.03 K/uL Not Available [facility] ([facility]) [address] [place], [address], 02/23/2025 15:02:28 02/24/20 25 02/23/2025 CBC AUTO W DIFF nucleated red blood cells # 0.00 K/uL Not Available [facility] ([facility]) [address] [place], [address], 02/23/2025 15:02:28 02/24/20 25 02/23/2025 CBC AUTO W DIFF manual differential NO Not Available [facility] ([facility]) [address], [place], [address], 02/23/2025 15:02:28 02/24/20 25 02/23/2025 COMP METAB OLIC PANEL sodium 138 mmol/ L 136-14 5 Not Available [facility] ([facility]) [address], [place], [address], 02/23/2025 15:39:03 02/24/20 25 02/23/2025 COMP METAB OLIC PANEL potassium 3.7 mmol/ L 3.6-5. 0 Not Available [facility] ([facility]) [address], [place], [address], 02/23/2025 15:39:03 02/24/20 25 02/23/2025 COMP METAB OLIC PANEL chloride 98 mmol/ L 98-107 Not Available [facility] ([facility]) [address], [place], [address], 02/23/2025 15:39:03 02/24/20 25 02/23/2025 COMP METAB OLIC PANEL carbon dioxide 26.8 mmol/ L 21.0-3 2.0 Not Available [facility] ([facility]) [address] , [place], [address], 02/23/2025 15:39:03 02/24/20 25 02/23/2025 COMP METAB OLIC PANEL anion gap 16.9 Not Available [facility] ([facility]) [address] , [place], [address], 02/23/2025 15:39:03 02/24/20 25 02/23/2025 COMP METAB OLIC PANEL glucose 200 mg/dL 70-120 high Not Available [facility] ([facility]) [address], [place], [address], 02/23/2025 15:39:03 02/24/20 25 02/23/2025 COMP METAB OLIC PANEL BUN 12 mg/dL 7-18 Not Available [facility] ([facility]) [address], [place], [address], 02/23/2025 15:39:03 02/24/20 25 02/23/2025 COMP METAB OLIC PANEL creatinine 1.1 mg/dL 0.6-1. 3 Not Available [facility] ([facility]) [address], [place], [address], 02/23/2025 15:39:03 02/24/20 25 02/23/2025 COMP METAB OLIC PANEL glomerular filtration rate 61 mlper min 60- GFR LIMIT ATION : The eGFR equat ion CKD-E PI 2020 is not appli cable for pedia tric patie nts or great er than 90 years of age. The follo wing condi tions may alter the GFR resul t: extre mes in body size, malnu triti on or obesi ty, skele eugenio muscl e disea se, parap legia or quadr ipleg ia, veget ken diet or rapid ly brown ing kiney funct ion. Not Available [facility] ([facility]) [address], [place], [address], 02/23/2025 15:39:03 02/24/20 25 02/23/2025 COMP METAB OLIC PANEL osmolality (calculated) 293 mOsm/ kg 275-30 1 OSMOL ALITY IS A CALCU LATIO N UTILI ZING THE SERUM /PLAS MA SODIU M, GLUCO SE AND UREA NITRO GEN (BUN) LEVEL S. FOR THE MOST ACCUR ATE RESUL T A MEASU RED SERUM OSMOL ALITY IS SUGGE STED. Not Available [facility] ([facility]) [address], [place], [address], 02/23/2025 15:39:03 02/24/20 25 02/23/2025 COMP METAB OLIC PANEL total protein 8.1 g/dL 6.4-8. 2 Not Available [facility] ([facility]) [address] , [place], [address], 02/23/2025 15:39:03 02/24/20 25 02/23/2025 COMP METAB OLIC PANEL albumin 3.6 g/dL 3.4-5. 0 Not Available [facility] ([facility]) [address] , [place], [address], 02/23/2025 15:39:03 02/24/20 25 02/23/2025 COMP METAB OLIC PANEL globulin 4.5 Not Available [facility] ([facility]) [address] , [place], [address], 02/23/2025 15:39:03 02/24/20 25 02/23/2025 COMP METAB OLIC PANEL alb/glob ratio 0.8 0.7-2 Not Available [facility] ([facility]) [address] , [place], [address], 02/23/2025 15:39:03 02/24/20 25 02/23/2025 COMP METAB OLIC PANEL calcium 10.2 mg/dL 8.5-10 .5 Not Available [facility] ([facility]) [address] , [place], [address], 02/23/2025 15:39:03 02/24/20 25 02/23/2025 COMP METAB OLIC PANEL bilirubin total 0.60 mg/dL 0.10-1 .00 Not Available [facility] ([facility]) [address] , [place], [address], 02/23/2025 15:39:03 02/24/20 25 02/23/2025 COMP METAB OLIC PANEL AST (SGOT) 46 U/L 0-37 high Not Available [facility] ([facility]) [address], [place], [address], 02/23/2025 15:39:03 02/24/20 25 02/23/2025 COMP METAB OLIC PANEL ALT (SGPT) 78 U/L 0-65 high Not Available [facility] ([facility]) [address], [place], [address], 02/23/2025 15:39:03 02/24/20 25 02/23/2025 COMP METAB OLIC PANEL alk phosphatase 111 U/L 46-116 Not Available [facility] ([facility]) [address], [place], [address], 02/23/2025 15:39:03 02/24/20 25 02/23/2025 C-KARLI CTIVE PROTE IN (CRP) C-reactive protein, quant 2.0 mg/dL 0.05-0 .300 high Not Available [facility] ([facility]) [address], [place], [address], 02/23/2025 15:40:11 02/24/20 25 02/23/2025 SED RATE sed rate auto 9 0-20 Not Available [facility] ([facility]) [address] [facility], [place], [address], 02/23/2025 15:43:35 02/24/20 25 02/27/2025 URINE CULTU RE,CO MPREH ENSIV E urine culture,comp rehensive FINAL REPORT abnormal Not Available [facility] ([facility]) [address], [place], [address], 02/27/2025 19:09:52 02/24/20 25 02/27/2025 URINE CULTU RE,CO MPREH ENSIV E result 1 COMMEN T abnormal Vanco mycin -resi stant Enter ococc us (Ente rococ cus faeci um) For Enter ococc us speci es, amino glyco sides (exce pt for high- level resis tance scresaad ernandez) , cepha lospo rins, clind amyci n, and trime thopr im-up lfame thoxa zole are not effec tive clini douglas . (CLSI , M100- S26, 2016) 25,00 0-50, 000 colon y formi ng units per mL Not Available [facility] ([facility]) [address] [facility], [place], [address], 02/27/2025 19:09:52 02/24/20 25 02/27/2025 URINE CULTU RE,CO MPREH ENSIV E result 2 COMMEN T abnormal Coagu lase negat estefania Staph yloco ccus speci es, not Staph yloco ccus sapro phyti cus. 25,00 0-50, 000 colon y formi ng units per mL Based on resis tance to oxaci llin this isola te would be resis tant to all curre ntly avail able beta- lacta m antim icrob ial agent s, with the excep tion of the newer cepha lospo rins with anti- MRSA activ ity, such as Cefta rolin e Not Available [facility] ([facility]) [address] [facility], [place], [address], 02/27/2025 19:09:52 02/24/20 25 02/27/2025 URINE CULTU RE,CO MPREH ENSIV E antimicrobia l susceptibili ty COMMEN T S = Susce ptibl e; I = Inter media te; R = Resis tant P = Posit estefania; N = Negat estefania MICS are expre ssed in micro grams per mL Antib iotic RSLT# 1 RSLT# 2 RSLT# 3 RSLT# 4 Cipro floxa mi R R Genta micin R Levof loxac in R I Linez olid S Moxif loxac in I Nitro furan toin S S Oxaci llin R Penic illin R R Rifam pin S Tetra cycli ne R R Trime thopr im/Up lfa R Vanco mycin R S Not Available [facility] ([facility]) [address] [facility], [place], [address], 02/27/2025 19:09:52 02/24/2002/23/2025 urina lysis , dipst ick Leukocytes (reference range) trace Not Available [facility] [address], [place], [address], 02/23/2025 14:16:48 02/24/20 25 02/23/2025 urina lysis , dipst ick Nitrite (reference range:) negati ve Not Available [place] [address] [address] [facility] [address], [place], [address], 02/23/2025 14:16:48 02/24/20 25 02/23/2025 urina lysis , dipst ick Urobilinogen (reference range) 0.2 Not Available [facility] [address] [facility] [address], [place], [address], 02/23/2025 14:16:48 02/24/20 25 02/23/2025 urina lysis , dipst ick Protein (reference range) negati ve Not Available [facility] [address] [facility] [address], [place], [address], 02/23/2025 14:16:48 02/24/20 25 02/23/2025 urina lysis , dipst ick pH (reference range 5-8.5) 6.0 Not Available [facility] [address] [facility] [address], [place], [address], 02/23/2025 14:16:48 02/24/20 25 02/23/2025 urina lysis , dipst ick Blood (reference range:) small Not Available [facility] [place] [address] [address] [facility] [address], [place], [address], 02/23/2025 14:16:48 02/24/20 25 02/23/2025 urina lysis , dipst ick Specific [place] (reference range) 1.015 Not Available [facility] [address], [place], [address], 02/23/2025 14:16:48 02/24/20 25 02/23/2025 urina lysis , dipst ick Ketone (reference range) negati ve Not Available [place] [address] [address] [facility] [address], [place], [address], 02/23/2025 14:16:48 02/24/20 25 02/23/2025 urina lysis , dipst ick Bilirubin (reference range) negati ve Not Available [place] [address] [address] [facility] [address], [place], [address], 02/23/2025 14:16:48 02/24/20 25 02/23/2025 urina lysis , dipst ick Glucose (reference range) 500 Not Available [place] [address] [address] [facility] [address], [place], [address], 02/23/2025 14:16:48 02/24/20 25 02/23/2025 urina lysis , dipst ick Color (reference range: yellow-brown ) Dark Yellow Not Available [place] [address] [address] [facility] [address], [place], [address], 02/23/2025 14:16:48 Result Notes None recorded. Problems Name Problem SNOMED Code Status Onset Date Resolution Date Notes Provider Name and Address Organization Details Recorded Time Syncope 095087214 Active 2021 Malina Hernandez DO [address] [facility], [place], [address] , [place] [facility] [place] & [place] 15:33:04 Hypersomnia 65356983 Active 2021 Malina Hernandez DO [address], [place], [address] , [place] [facility] & [place] 15:34:08 Problem Notes None recorded. 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 Procedure Notes None recorded. Medical Equipment None Reported. Allergies Allergen ID Allergen Name Allergen Category Reaction Reaction Severity Criticality Documentation Date Start Date Code Code System Note Provider Name and Address Organization Details Recorded Time 66374 aspirin medicatio n chest pain wheezing moderate severe Not available 10/02/2022 1191 RxNorm Vandana Eugenioa null, [place] [facility] [place] & [place] 2 09:22:42 78193 Bactrim medicatio n arthralgi a (joint pain) muscle cramps severe severe Not available 10/02/2022 12235 9 RxNorm Vandana Eugenioa null, [place] [facility] [place] & [place] 2 09:22:49 46966 insect venom environme nt confusion cough dizziness fever flushing headache wheezing moderate moderate moderate mild moderate moderate moderate Not available 10/02/2022 65808 UNK Vandana catherine, [facility] & [place] 2 09:23:13 35405 Pneumococ georges vaccine Not available anaphylax is chest pain facial swelling nausea rash wheezing moderate moderate moderate moderate moderate moderate Not available 10/02/2022 27858 7 RxNorm [facility] Reed [facility] & [place] 2 09:23:25 85661 rosuvasta tin medicatio n eye swelling facial swelling respirato ry distress moderate moderate moderate Not available 10/02/2022 59100 2 RxNorm [facility] Reed [facility] & [place] 2 09:23:35 Medications Name Sig Start Date [...] Not Available Vitals Date Recorded Body height Body temperature Oxygen saturation Oxygen saturation in Arterial blood by Pulse oximetry Inhaled oxygen flow rate Heart rate Body mass index (BMI) Body weight Systolic blood pressure Diastolic blood pressure Provider Name and Address Organization Details Last Updated DateTime 3 157.48 cm 97.1 [degF] 98 % 98 % 2 L/min 89 /min 48.3 kg/m2 170191. 39 g 128 mm[Hg] 98 mm[Hg] Phillip Morrison [place] [facility] & [place] 3 13:04:48 Date Recorded Body height Body mass index (BMI) Body weight Systolic blood pressure Diastolic blood pressure Provider Name and Address Organization Details Last Updated DateTime 08/07/2023 157.48 cm 49.4 kg/m2 242611.9 4 g 125 mm[Hg] 75 mm[Hg] Britney Yee [place] [facility] & [place] 3 15:05:24 Date Recorded Body height Body mass index (BMI) Body weight Systolic blood pressure Diastolic blood pressure Provider Name and Address Organization Details Last Updated DateTime 09/25/2023 157.48 cm 51.2 kg/m2 012585.8 6 g 126 mm[Hg] 76 mm[Hg] Ioana Ayala [facility] & [place] 3 15:07:04 Date Recorded Heart rate Body height Oxygen saturation Oxygen saturation in Arterial blood by Pulse oximetry Heart rate Body temperature Body mass index (BMI) Body weight Systolic blood pressure Diastolic blood pressure Provider Name and Address Organization Details Last Updated DateTime 5 80 /min 160.02 cm 96 % 96 % 80 /min 98.6 [degF] 49.6 kg/m2 739608. 86 g 116 mm[Hg] 100 mm[Hg] Bianca Smith RAFITA [facility] & [place] 5 13:59:18 Date Recorded Body height Heart rate Oxygen saturation Oxygen saturation in Arterial blood by Pulse oximetry Heart rate Body temperature Body mass index (BMI) Body weight Systolic blood pressure Diastolic blood pressure Provider Name and Address Organization Details Last Updated DateTime 5 160.02 cm 60 /min 97 % 97 % 60 /min 97.7 [degF] 49.6 kg/m2 297983. 86 g 119 mm[Hg] 79 mm[Hg] Bianca Smith RAFITA [facility] & [place] 5 13:31:54 Social History Question Answer Notes LastModified by Organizat ion Details LastModified Time Tobacco Smoking Status [facility] [place] 10/03/2022 14:32:09 Do You Have An Advance [...] Anxious, Or Unable To Sleep At Night)? [id number] Information not available 10/03/2022 Do You Use Any Illicit Or Recreational Drugs? No Information not available 10/03/2022 Are You Currently In School? No MASTERS [email or web address] Information not available 09/25/2023 Sex: Female Functional [...] SNOMED-CT Code Diagnosis ICD10 Code Diagnosis Note [id number] DO SUZANNA Sanchez [facility] Neurology [address] [place] [address] 10/03/2022 14:07:23 10/03/2022 15:38:25 Syncope 271654028 R55 She has been experienci ng these stereotypi georges passing out episodes for five years. No definite witnessed convulsion s but some associated brief confusion afterwards .will order EEG to rule out neurologic causes of syncope Hypersomnia 64785808 G47 .10 She describes some significan t episodes of pathologic al sleepiness . She will fall asleep without warning in the middle of talking. This is very infrequent but can be suggestive of narcolepsy . Will order PSG with MSLT to evaluate this in more detail. [id number] Micheline Lackey MD [facility] General Surgery [address] [place] [address],[address] [place] [address] 04/02/2023 12:53:55 04/02/2023 13:53:12 Pelvic mass 65322375 R19.00 Possible lymphocele versus ovarian remnant from [...] patient with lab levels and consider further PHYSICAL METALLURGIST follow up. [id number] Silvio Valdez MD [facility] Urology [address] [place] [address],[address] [place] [address] 08/07/2023 14:35:57 08/07/2023 15:40:17 Recurrent urinary tract infection 047661514 N39.0 Kidney stone 07845476 N2 0.0 Chronic th oracic back pain 8522288367 18246 M54.6 Microscopic hematuria 19 4390371 R31.29 [id number] Silvio Valdez MD [facility] [address] [place] [address] [address] [place] [address] 09/25/2023 14:26:57 09/25/2023 15:25:02 Recurrent urinary tract infection 373209592 N39.0 Kidney stone 19259424 N2 0.0 Microscopic hematuria 19 4104613 R31.29 [id number] Marilou Herbert in, [facility] Infectiou s Disease -105 [address] [facility] [address] [place] [address] 02/23/2025 13:48:33 02/23/2025 14:17:11 Recurrent urinary tract infection 567616511 N39.0 Will check lab work. Will send urine off for a culture. Will see patient back in 1 week. 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 Patient will follow up in 2 weeks. Call the office if anything persists or worsens. 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 see above Health Concerns Section Related Observation LastModified by Organization Detai ls LastModified Time None Recorded Concern Status LastModified by Organization Details LastModified Time None Recorded Advance Directives Directive N: Payers Insurance Date Sequence Insurance Name Policy Number Policy Valdivia Covered Member ID Valdivia Member ID Guarantor Name 09/18/2023 1 [facility] (POS II) [facility] [id number] [facility] 02/27/2025 1 [facility] (MEDICAID HMO) [facility] [id number] [facility] Notes Date Note Type Note Provider Name and Address Organization Details Recorded Time 04/02/2023 text/html 47-year-old curt fitch referred for a right pelvic fluid collection. Patient had hysterectomy, right salpingo-oophorectomy in 2021. She has undergone imaging on several occasions since then for some occasional, dull, aching right flank pain. She has a 7.4 cm right adnexal fluid collection that has enlarged somewhat over time. Patient states she is seen her installation technician for this, was told it is possibly a lymphocele. Micheline Lackey MD [address], [place], [address], [facility] - [facility] - [place] & [place] 04/18/2023 12:50:43 08/07/2023 text/html Location: Histor y of kidney stones/Reoccurring UTI.Quality: Flank pain Right. Bilateral groin painSeverity: 4 UTI's confirmed since 10/2022Started/Duration : Started with urology issues ~4-5 years agoOnset/Timing: [...] status post hysterectomy. Silvio Valdez MD [address] [address] [facility], [place], [address], [facility] - [place] & [place] 08/07/2023 15:35:17 09/25/2023 text/html Patient returns to [...] Bilateral groin painSeverity: 4 UTI's confirmed since 10/2022Started/Duration : Started with urology issues ~4-5 years agoOnset/Timing: [...] status post hysterectomy. Silvio Valdez MD [address], [place], [address], [facility] - [facility] & [place] 09/25/2023 15:30:10 02/23/2025 text/html patient presents to clinic for [...] surgery with urology in April 2025. Marilou David APRN [address], [place], [address], [facility] - [facility] & [place] 02/24/2025 10:59:38 03/02/2025 text/html patient presents to clinic for follow up. Urine culture results received. Patient denies any fever. She is scheduled to have surgery to remove her stone on . Marilou David APRN [address], [place], [address], [place] - [facility] & [place] 03/02/2025 13:35:40 OBGyn Episode No OBEpisode recorded.
[2025-03-07 01:55] LABS: Basophils # 0.1 K/mm3 (0-0.2); Basophils % 0.4 % (0.1-2.0); Eosinophils # 0.2 Kmm3 (0.0-0.4); Eosinophils % 1.2 % (0.1-12.0); Hematocrit 43.9 % (37.0-47.0); Hemoglobin 14.6 g/dL (12.2-16.2); Immature Granulocytes # 0.04 10^3uL; Immature Granulocytes % 0.3 %; Lymphocytes % 29.6 % (10-50); Mean Corpuscular HGB Conc 33.3 g/dL (31.8-35.4); Mean Corpuscular Hemoglobin 28.8 pg (27.0-31.2); Mean Corpuscular Volume 86.6 fl (81-99); Mean Platelet Volume 10.4 fl (7.4-10.4); Monocytes # 0.8 K/mm3 (0.1-1.0); Monocytes % 5.9 % (1.7-9.3); Neutrophils # 8.5 K/mm3 (1.8-7.8); Neutrophils % 62.6 % (37.0-80.0); Nucleated Red Blood Cells # 0 10^3/uL; Nucleated Red Blood Cells % 0 %; Platelet Count 290 K/mm3 (142-424); Red Blood Count 5.07 M/mm3 (4.20-5.40); Red Cell Distribution Width 14.5 % (11.5-17.5); Red Cell Distribution Width-SD 45.1 fL; White Blood Count 13.6 K/mm3 (4.8-10.8)
[2025-03-07 02:02] LABS: Potassium 4.1 mmoL/L (3.5-5.1)
[2025-03-07 02:03] LABS: Alanine Aminotransferase 43 U/L (12-78); Albumin Level 3.9 g/dl (3.5-5.0); Albumin/Globulin Ratio 1.3 (1.1-1.8); Alkaline Phosphatase 68 U/L (38-126); Aspartate Amino Transferase 47 U/L (14-36); Bilirubin,Total 0.5 mg/dl (0.2-1.3); Blood Urea Nitrogen 21 mg/dl (7-17); Calcium 8.9 mg/dl (8.4-10.2); Carbon Dioxide 27 mmol/L (22.0-30.0); Chloride 105 mmol/L (98-107); Creatinine Clearance Estimated 69 mL/min (50-200); Estimated Glomerular Filt Rate 76 ml/min (>60); GFR (African American) 92 ML/MIN (>60); Globulin 2.9 g/dL (1.3-3.2); Glucose 304 mg/dl (74-100); Magnesium 1.8 mg/dl (1.6-2.3); Phosphorous 5.5 mg/dl (2.5-4.5); Sodium 137 mmol/L (136-145); Total Protein,Serum 6.8 g/dl (6.3-8.2)
[2025-03-07 02:04] LABS: Anion Gap 9.1 mEq/L (5-15)
[2025-03-07] MEDS: CALCIUM GLUC IN NACL, ISO-OSM 2 GM/100 ML BAG IV (02:52)
[2025-03-07 03:01] VITALS: BP 114/68; PULSE 57; RESP 12; O2SAT 91
[2025-03-07 04:22] LABS: Creatine Kinase 324 U/L (30-135)
[2025-03-07 04:39] VITALS: BP 136/71; PULSE 63; RESP 36; O2SAT 95
[2025-03-07 05:00] VITALS: BP 132/72; PULSE 62; RESP 13; O2SAT 95
[2025-03-07 05:38] VITALS: BP 132/72; PULSE 62; RESP 16; TEMP 37.1; O2SAT 95
[2025-03-08 16:43] LABS: Calcium, Ionized 5.1 mg/dL (4.5-5.6)
== END 2025-03-07 05:39 | disposition home or self-care (01) ==
LOC: ER 01:45
PROVIDERS: Emergency Provider Emergency Medicine; PCP Internal Medicine
DX: R20.2 Paresthesia of skin (principal); R74.8 Abnormal levels of other serum enzymes; R25.2 Cramp and spasm; E11.65 Type 2 diabetes mellitus with hyperglycemia
CPT/HCPCS: 80053; 82330; 82550; 83735; 84100; 85025; 93005; 96365; 96366; 99284; J0612

== ENCOUNTER 2025-03-11 23:19 | Observation (INO) | payer OTHER, SELFPAY ==
[2025-03-11 23:34] VITALS: BP 116/80; PULSE 87; RESP 18; TEMP 36.4; O2SAT 100; BMI 49.6
--- OUTSIDE RECORDS SUMMARY | 2025-03-11 23:42 | XMS_ITS | Data Portability ---
Author Organization [facility] Mahamed lomeli, [facility] Address [address] [address] [place] [address] Assessment No assessment recorded. Plan of Treatment Reminders Order Date Submit Date Provider Last Modified By Organization Details Last Modified Time Details Appointments None recorded. Lab None recorded. Referral aquatic therapy referral 2017 018 [email or web address] 2 Not available 8 11:14:18 cognitive behavioral therapy referral 2017 018 [email or web address] 2 [facility], [address] [facility], [place], [address], 8 11:14:19 occupationa l therapist referral 2017 018 [email or web address] 2 Not available 8 11:14:17 Procedures None recorded. Surgeries None recorded. Imaging None recorded. Medication Orders None recorded. Patient TargetsNo targets recorded. Patient Instructions Encounter Date Encounter Id Patient Instructions Last Modified By Organization Details Last Modified Time 08/13/2018 [id number] learning about healthy weight Not available 08/13/2018 [...] Name and Address Organization Details Recorded Time 986150 aspirin medicatio n Not available Not available Not available 08/13/2018 1191 RxNorm Melinda Hudson [facility] 8 10:01:54 Medications Name Sig Start [...] Address Organization Details Last Updated DateTime 8 756348. 12 g 48.2 kg/m2 160.02 cm 18 /min 61 /min 132 mm[Hg] 96 mm[Hg] Melinda Hudson [facility] 8 10:06:40 Social History Question Answer Notes LastModified by Organizat ion Details LastModified Time Tobacco Smoking Status Never Smoker Melinda Hudson [facility] 08/13/2018 10:02:03 What Was The Date Of Your Most Recent Tobacco Screening? 08/13/2018 Information n ot available 12/15/2019 Sex: Unknown Functional Status None recorded. Mental Status None recorded. Family History Relationship Description Onset Age of this Age Resolved Age Notes LastModified by Organization Details LastModified Time Father No current problems or disability [email or web address] Not available 08/13 10:02:01 Mother No current [...] SNOMED-CT Code Diagnosis ICD10 Code Diagnosis Note [id number] CLIFF BARBER MD [facility] [address] [place] [address] 08/13/2018 09:13:44 08/13/2018 10:48:47 Pain of multiple joints 53157074 M25.50 she has clinical features of Dixon OA. no features of an inflammato ry arthritis noted. no features of rheumatoid noted. 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 would suggest to avoid steroids and start OT as stated below. she can RTC with me as prn. 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 Health Concerns Section Related Observation LastModified by Organization Detai ls LastModified Time None Recorded Concern Status LastModified by Organization Details LastModified Time None Recorded Advance Directives Directive None Recorded Payers Insurance Date Sequence Insurance Name Policy Number Policy Valdivia Covered Member ID Valdivia Member ID Guarantor Name 02/03/2024 1 [facility] [id number] [facility] 01/24/2024 1 [place]FS/TRADITIO NAL Lissy [facility] [id number] Lissy [facility] 02/04/2024 1 [facility] [id number] Lissy [facility] 01/31/2024 1 [place] [id number] Lissy [facility] [id number] 01 Lissy [facility] Notes Date Note Type Note Provider [...] and a normal TSH. CLIFF BARBER MD [facility] [facility], [place], [address], [facility] 08/13/2018 17:00:47 OBGyn Episode No OBEpisode recorded.
--- OUTSIDE RECORDS SUMMARY | 2025-03-11 23:43 | XMS_ITS | Continuity of Care Document ---
Author Organization [facility] Infectious Disease -105 Address [address] [place] [address] Care Team Providers Care Business Analyst Intern Name Role Phone ZAHRAA BENAVIDES Primary Care Provider [phone] Assessment No assessment recorded. Plan of Treatment [...] and Address Organization Details Recorded Time Syncope 590404721 Active 2021 Malina Hernandez DO [address], [place], [address] , [facility] & [place] 2 15:33:04 Hypersomnia 87261442 Active 2021 Malina Hernandez DO [address], [place], [address] , [facility] & [place] 2 15:34:08 Problem Notes None recorded. Procedures Surgical History Date Name Laterality Status Provider Name and Address Organization Details Recorded Time 09/25/20 23 Cystoscopy-Female completed Silvio Valdez MD [address], [place], [address], [facility] & [place] 09/25/2023 15:26:11 04/04/20 22 Date of Last Pap Smear completed Vandana ELLER - [facility] - [place] & [place] 10/03/2022 14:31:43 10/28/19 22 Application Dba Surgery completed Vandana ELLER - [facility] & [place] 10/03/2022 14:45:45 10/28/19 17 Cholecystectomy completed Vandana Beckera RAFITA - [facility] - [place] & [place] 10/03/2022 14:32:27 10/28/19 14 Other completed Vandana Beckera RAFITA - [facility] - [place] & [place] 10/03/2022 14:44:51 cardiac catheterization completed Vandana ELLER - [facility] - [place] & [place] 10/03/2022 14:46:31 strabismus surgery completed Vandana ELLER - [facility] & [place] 10/03/2022 14:55:15 Imaging Results None recorded. Procedure Notes None recorded. Medical Equipment None Reported. Allergies Allergen ID Allergen Name Allergen Category Reaction Reaction Severity Criticality Documentation Date Start Date Code Code System Note Provider Name and Address Organization Details Recorded Time 10482 aspirin medicatio n chest pain wheezing moderate severe Not available 10/02/2022 1191 RxNorm Vandana catherine, RAFITA - [facility] & [place] 2 09:22:42 62909 Bactrim medicatio n arthralgi a (joint pain) muscle cramps severe severe Not available 10/02/2022 55748 9 RxNorm Vandana Harris null, RAFITA - [facility] & [place] 2 09:22:49 20280 insect venom environme nt confusion cough dizziness fever flushing headache wheezing moderate moderate moderate mild moderate moderate moderate Not available 10/02/2022 75976 UNK Vandana Harris null, [place] - [facility] & [place] 2 09:23:13 52717 Pneumococ georges vaccine Not available anaphylax is chest pain facial swelling nausea rash wheezing moderate moderate moderate moderate moderate moderate Not available 10/02/2022 00305 7 RxNorm Vandana Eugenioa null, [place] - [facility] & [place] 2 09:23:25 03208 rosuvasta tin medicatio n eye swelling facial swelling respirato ry distress moderate moderate moderate Not available 10/02/2022 45830 2 RxNorm Vandana RAFITA [facility] - [place] - [place] & [place] 2 09:23:35 Medications Name [...] and Address Organization Details Last Updated DateTime 160.02 cm 60 /min 97 % 97 % 60 /min 97.7 [degF] 49.6 kg/m2 708983. 86 g 119 mm[Hg] 79 mm[Hg] Bianca Smith [facility] & [place] 5 13:31:54 Social History Question Answer Notes LastModified by [employer] Details LastModified Time Tobacco Smoking Status Never Sm[facility] [place] 10/03/2022 14:32:09 Do You Have An Advance Directive? No Information not available 10/03/2022 Are You Blind Or Do You Have Difficulty Seeing? No Information not available 10/03/2022 What Was The Date Of Your Most Recent Tobacco Screening? 09/17/2022 Information not available 10/03/2022 Do You Have Any Pets? Yes [email or web address] Information not available 09/25/2023 Are You Passively Exposed To Smoke? No Information not available 10/03/2022 Are You Currently In School? No MASTERS [email or web address] Information not available 09/25/2023 Sex: Female Functional Status Question Answer Note LastModified by Organizat ion Details LastModified Time Do you use any illicit or recreational drugs? No Information not available 10/03/2022 What is your level of alcohol consumption? 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 Occasional Information not available 10/03/2022 Mental Status Question Answer Note LastModified by Organization D etails LastModified Time Do you feel stressed (tense, restless, nervous, or anxious, or unable to sleep at night)? [id number] Information not available 10/03/2022 Family History Relationship Description Onset Age of [...] SNOMED-CT Code Diagnosis ICD10 Code Diagnosis Note [id number] [facility] [address] [facility] [address] [place] [address] 02/23/2025 13:48:33 02/23/2025 14:17:11 Recurrent urinary tract infection 752497578 N39.0 Will check lab work. Will send urine off for a culture. Will see patient back in 1 week. 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 Patient will follow up in 2 weeks. Call the office if anything persists or worsens. 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 Urine culture results received. Patient denies any fever. She is scheduled to have surgery to remove her stone on . Marilou David, HEATER OPERATOR HELPER [address], [place], [address], [place] - [facility] - [place] & [place] 03/02/2025 13:35:40 OBGyn Episode No OBEpisode recorded.
--- OUTSIDE RECORDS SUMMARY | 2025-03-11 23:43 | XMS_ITS | Data Portability ---
Author Organization [facility] [place] [facility] [place] [facility] [place] Alejandro ADMIN Address [address] [place] [id number] Care Team Providers Care Core Carrier Name Role Phone ZAHRAA BENAVIDES Primary Care Provider Assessment Encounter Date Assessment Date Assessment LastModified by Organization Details LastModified Time 08/07/2023 08/07/[address] scan images onto our system. Will review to determine the degree of stone burden bilaterally in the kidneys. Will also plan cystoscopy and pelvic exam in the office in the near future. [email or web address] Not available 08/07/2023 15:34:46 09/25/2023 09/25/2023 I [...] in 6 months with KUB and UA. [email or web address] Not available 09/25/2023 15:29:09 Plan of Treatment Reminders Order Date Submit Date Provider Last Modified By Organization Details Last Modified Time Details Appointments Establish ed Visit 15 min 2024 01:45P M Marilou nation APRN Not available Not available Not available Lab urinalysi s, dipstick [address] [facility] -105, [address], [place], [address], 02/23/2025 14:18:52 CBC w/ diff 2024 025 [facility] (Registration ), [address] [facility], [place], [address], 02/23/2025 16:11:55 CMP, serum or plasma 2024 025 [facility] (Registration ), [address] [facility], [place], [address], 02/23/2025 15:39:03 ESR (erythroc yte sedimenta tion rate), blood [address] (Registration ), [address] [facility], [place], [address], 03/09/2025 08:54:47 C-reactiv e protein, quantitat estefania, serum or plasma [address] (Registration ), [address] [facility], [place], [address], 03/09/2025 08:54:48 culture, urine 2024 025 [facility], [address], [address], [place], [address], 02/27/2025 19:09:52 urinalysi s, dipstick 2022 023 [email or web address] [facility], [address] [facility], [address], [place], [address], 08/07/2023 16:08:29 Referral None recorded. Procedures None [...] usal 7.7 - 58.5 Perfo rmed at: [address] [address] Lab Direc tor: Los carson PhD, Phone : [phone] Not Available [facility] ([facility]) [address] [place], [address], 04/03/2023 10:13:10 04/02/20 23 04/03/2023 FSH FSH, serum 5.4 mIU/m L Adult Femal e: Folli cular phase 3.5 - 12.5 Ovula tion phase 4.7 - 21.5 Lutea l phase 1.7 - 7.7 Postm enopa usal 25.8 - 134.8 Perfo rmed at: [address] [address] Lab Direc tor: Los carson PhD, Phone : [phone] Not Available [facility] ([facility]) [address] [place], [address], 04/03/2023 10:14:16 08/07/20 23 08/07/2023 urina lysis , dipst ick Leukocytes (reference range) trace Not Available [facility] [address] [place] [address], [address], 08/07/2023 15:15:15 08/07/20 23 08/07/2023 urina lysis , dipst ick Nitrite (reference range:) negati ve Not Available [facility] [address] [place] [address], [address], 08/07/2023 15:15:15 08/07/2008/07/2023 urina lysis , dipst ick Urobilinogen (reference range) 0.2 Not Available [facility] [address] [place] [address] [address], [place], [address], 08/07/2023 15:15:15 08/07/2008/07/2023 urina lysis , dipst ick Protein (reference range) negati ve Not Available [facility] [address] [place] [address] [address], [place], [address], 08/07/2023 15:15:15 08/07/2008/07/2023 urina lysis , dipst ick pH (reference range 5-8.5) 6.0 Not Available [facility] [address] [place] [address] [address], [place], [address], 08/07/2023 15:15:15 08/07/2008/07/2023 urina lysis , dipst ick Blood (reference range:) small Not Available [facility] [address] [place] [address] [address], [place], [address], 08/07/2023 15:15:15 08/07/2008/07/2023 urina lysis , dipst ick Specific [place] (reference range) 1.015 Not Available [facility] [address] [place] [address] [address], [place], [address], 08/07/2023 15:15:15 08/07/2008/07/2023 urina lysis , dipst ick Ketone (reference range) negati ve Not Available [facility] [address] [place] [address] [address], [place], [address], 08/07/2023 15:15:15 08/07/2008/07/2023 urina lysis , dipst ick Bilirubin (reference range) negati ve Not Available [facility] [address], [place], [address], 08/07/2023 15:15:15 08/07/2008/07/2023 urina lysis , dipst ick Glucose (reference range) 250 Not Available [facility] [address] [facility] [address], [place], [address], 08/07/2023 15:15:15 08/07/2008/07/2023 urina lysis , dipst ick Color (reference range: yellow-brown ) Yellow Not Available [facility] [address] [facility] [address], [place], [address], 08/07/2023 15:15:15 02/24/20 25 02/23/2025 CBC AUTO W DIFF WBC 11.3 K/uL 4.0-10 .5 high Not Available [facility] ([facility]) [address] [facility], [place], [address], 02/23/2025 15:02:28 02/24/20 25 02/23/2025 CBC AUTO W DIFF RBC 5.7 M/mm3 4.2-6. 4 Not Available [facility] ([facility]) [address] [facility], [place], [address], 02/23/2025 15:02:28 02/24/20 25 02/23/2025 CBC AUTO W DIFF HGB 15.8 gm/dL 12.5-1 6.0 Not Available [facility] ([facility]) [address] [place], [address], 02/23/2025 15:02:28 02/24/20 25 02/23/2025 CBC AUTO W DIFF HCT 48.8 % 37.0-4 7.0 high Not Available [facility] ([facility]) [address] [place], [address], 02/23/2025 15:02:28 02/24/20 25 02/23/2025 CBC AUTO W DIFF MCV 86.4 fL 78-100 Not Available [facility] ([facility]) [address] , [place], [address], 02/23/2025 15:02:28 02/24/20 25 02/23/2025 CBC AUTO W DIFF MCH 28.0 pg 27-31 Not Available [facility] ([facility]) [address] , [place], [address], 02/23/2025 15:02:28 02/24/20 25 02/23/2025 CBC AUTO W DIFF MCHC 32.4 g/dL 32-36 Not Available [facility] ([facility]) [address], [place], [address], 02/23/2025 15:02:28 02/24/20 25 02/23/2025 CBC AUTO W DIFF RDW 13.7 % 11.5-1 4.0 Not Available [facility] ([facility]) [address] , [place], [address], 02/23/2025 15:02:28 02/24/20 25 02/23/2025 CBC AUTO W DIFF platelet count 380 K/uL 150-45 0 Not Available [facility] ([facility]) [address] , [place], [address], 02/23/2025 15:02:28 02/24/20 25 02/23/2025 CBC AUTO W DIFF MPV 10.3 fL 6-9.5 high Not Available [facility] ([facility]) [address] , [place], [address], 02/23/2025 15:02:28 02/24/20 25 02/23/2025 CBC AUTO W DIFF neutrophil% 66.5 % 43-65 high Not Available [facility] ([facility]) [address] , [place], [address], 02/23/2025 15:02:28 02/24/20 25 02/23/2025 CBC AUTO W DIFF lymphocyte% 24.3 % 20.5-4 5.5 Not Available [facility] ([facility]) [address] , [place], [address], 02/23/2025 15:02:28 02/24/20 25 02/23/2025 CBC AUTO W DIFF monocyte% 6.0 % 5.5-11 .7 Not Available [facility] ([facility]) [address] , [place], [address], 02/23/2025 15:02:28 02/24/20 25 02/23/2025 CBC AUTO W DIFF eosinophil% 2.3 % 0.9-2. 9 Not Available [facility] ([facility]) [address] , [place], [address], 02/23/2025 15:02:28 02/24/20 25 02/23/2025 CBC AUTO W DIFF basophil% 0.6 % 0.2-1. 0 Not Available [facility] ([facility]) [address] , [place], [address], 02/23/2025 15:02:28 02/24/20 25 02/23/2025 CBC AUTO W DIFF immature granulocytes % 0.3 % 0.0-0. 8 Not Available [facility] ([facility]) [address] , [place], [address], 02/23/2025 15:02:28 02/24/20 25 02/23/2025 CBC AUTO W DIFF nucleated red blood cells % 0.0 % Not Available [facility] ([facility]) [address] , [place], [address], 02/23/2025 15:02:28 02/24/20 25 02/23/2025 CBC AUTO W DIFF neutrophil# 7.5 K/uL 2.2-4. 8 high Not Available [facility] ([facility]) [address] [facility], [place], [address], 02/23/2025 15:02:28 02/24/20 25 02/23/2025 CBC AUTO W DIFF lymphocyte# 2.7 cell/ mcL 1.3-2. 9 Not Available [facility] ([facility]) [address] [facility], [place], [address], 02/23/2025 15:02:28 02/24/20 25 02/23/2025 CBC AUTO W DIFF monocyte# 0.7 cell/ mcL 0.3-0. 8 Not Available [facility] ([facility]) [address] [facility], [place], [address], 02/23/2025 15:02:28 02/24/20 25 02/23/2025 CBC AUTO W DIFF eosinophil# 0.3 cell/ mcL 0-0.2 high Not Available [facility] ([facility]) [address] [facility], [place], [address], 02/23/2025 15:02:28 02/24/20 25 02/23/2025 CBC AUTO W DIFF basophil# 0.1 cell/ mcL 0.0-1. 0 Not Available [facility] ([facility]) [address] [place], [address], 02/23/2025 15:02:28 02/24/20 25 02/23/2025 CBC AUTO W DIFF immature gramulocytes # 0.03 K/uL Not Available [facility] ([facility]) [address] [place], [address], 02/23/2025 15:02:28 02/24/20 25 02/23/2025 CBC AUTO W DIFF nucleated red blood cells # 0.00 K/uL Not Available [facility] ([facility]) [address] [place], [address], 02/23/2025 15:02:28 02/24/20 25 02/23/2025 CBC AUTO W DIFF manual differential NO Not Available [facility] ([facility]) [address] , [place], [address], 02/23/2025 15:02:28 02/24/20 25 02/23/2025 COMP METAB OLIC PANEL sodium 138 mmol/ L 136-14 5 Not Available [facility] ([facility]) [address] , [place], [address], 02/23/2025 15:39:03 02/24/20 25 02/23/2025 COMP METAB OLIC PANEL potassium 3.7 mmol/ L 3.6-5. 0 Not Available [facility] ([facility]) [address] , [place], [address], 02/23/2025 15:39:03 02/24/20 25 02/23/2025 COMP METAB OLIC PANEL chloride 98 mmol/ L 98-107 Not Available [facility] ([facility]) [address] , [place], [address], 02/23/2025 15:39:03 02/24/20 25 02/23/2025 COMP METAB OLIC PANEL carbon dioxide 26.8 mmol/ L 21.0-3 2.0 Not Available [facility] ([facility]) [address] , [place], [address], 02/23/2025 15:39:03 02/24/20 25 02/23/2025 COMP METAB OLIC PANEL anion gap 16.9 Not Available [facility] ([facility]) [address] , [place], [address], 02/23/2025 15:39:03 02/24/20 25 02/23/2025 COMP METAB OLIC PANEL glucose 200 mg/dL 70-120 high Not Available [facility] ([facility]) [address], [place], [address], 02/23/2025 15:39:03 02/24/20 25 02/23/2025 COMP METAB OLIC PANEL BUN 12 mg/dL 7-18 Not Available [facility] ([facility]) [address], [place], [address], 02/23/2025 15:39:03 02/24/20 25 02/23/2025 COMP METAB OLIC PANEL creatinine 1.1 mg/dL 0.6-1. 3 Not Available [facility] ([facility]) [address], [place], [address], 02/23/2025 15:39:03 02/24/20 25 02/23/2025 COMP METAB [...] brown ing kiney funct ion. Not Available [facility] ([facility]) [address] , [place], [address], 02/23/2025 15:39:03 02/24/20 25 02/23/2025 COMP METAB OLIC PANEL osmolality (calculated) 293 mOsm/ kg 275-30 1 OSMOL ALITY IS A CALCU LATIO N UTILI ZING THE SERUM /PLAS MA SODIU M, GLUCO SE AND UREA NITRO GEN (BUN) LEVEL S. FOR THE MOST ACCUR ATE RESUL T A MEASU RED SERUM OSMOL ALITY IS SUGGE STED. Not Available [facility] ([facility]) [address] , [place], [address], 02/23/2025 15:39:03 02/24/20 25 02/23/2025 COMP METAB OLIC PANEL total protein 8.1 g/dL 6.4-8. 2 Not Available [facility] ([facility]) [address] , [place], [address], 02/23/2025 15:39:03 02/24/20 25 02/23/2025 COMP METAB OLIC PANEL albumin 3.6 g/dL 3.4-5. 0 Not Available [facility] ([facility]) [address], [place], [address], 02/23/2025 15:39:03 02/24/20 25 02/23/2025 COMP METAB OLIC PANEL globulin 4.5 Not Available [facility] ([facility]) [address], [place], [address], 02/23/2025 15:39:03 02/24/20 25 02/23/2025 COMP METAB OLIC PANEL alb/glob ratio 0.8 0.7-2 Not Available [facility] ([facility]) [address] , [place], [address], 02/23/2025 15:39:03 02/24/20 25 02/23/2025 COMP METAB OLIC PANEL calcium 10.2 mg/dL 8.5-10 .5 Not Available [facility] ([facility]) [address] , [place], [address], 02/23/2025 15:39:03 02/24/20 25 02/23/2025 COMP METAB OLIC PANEL bilirubin total 0.60 mg/dL 0.10-1 .00 Not Available [facility] ([facility]) [address], [place], [address], 02/23/2025 15:39:03 02/24/20 25 02/23/2025 COMP METAB OLIC PANEL AST (SGOT) 46 U/L 0-37 high Not Available [facility] ([facility]) [address] , [place], [address], 02/23/2025 15:39:03 02/24/20 25 02/23/2025 COMP METAB OLIC PANEL ALT (SGPT) 78 U/L 0-65 high Not Available [facility] ([facility]) [address], [place], [address], 02/23/2025 15:39:03 02/24/20 25 02/23/2025 COMP METAB OLIC PANEL alk phosphatase 111 U/L 46-116 Not Available [facility] ([facility]) [address], [place], [address], 02/23/2025 15:39:03 02/24/20 25 02/23/2025 C-KARLI CTIVE PROTE IN (CRP) C-reactive protein, quant 2.0 mg/dL 0.05-0 .300 high Not Available [facility] ([facility]) [address], [place], [address], 02/23/2025 15:40:11 02/24/20 25 02/23/2025 SED RATE sed rate auto 9 0-20 Not Available [facility] ([facility]) [address], [place], [address], 02/23/2025 15:43:35 02/24/20 25 02/27/2025 URINE CULTU RE,CO MPREH ENSIV E urine culture,comp rehensive FINAL REPORT abnormal Not Available [facility] ([facility]) [address], [place], [address], 02/27/2025 19:09:52 02/24/20 25 02/27/2025 URINE CULTU RE,CO MPREH ENSIV E result 1 COMMEN T abnormal Vanco mycin -resi stant Enter ococc us (Ente rococ cus faeci um) For Enter ococc us speci es, amino glyco sides (exce pt for high- level resis tance scresaad blancg) , cepha lospo rins, clind amyci n, and trime thopr im-up lfame thoxa zole are not effec tive clini douglas . (CLSI , M100- S26, 2016) 25,00 0-50, 000 colon y formi ng units per mL Not Available [facility] ([facility]) [address] [facility], [place], [address], 02/27/2025 19:09:52 02/24/20 25 02/27/2025 URINE CULTU [...] as Cefta rolin e Not Available [facility] ([facility]) [address] [facility], [place], [address], 02/27/2025 19:09:52 02/24/20 25 02/27/2025 URINE CULTU [...] Vanco mycin R S Not Available [facility] ([facility]) [address], [place], [address], 02/27/2025 19:09:52 02/24/2002/23/2025 urina lysis , dipst ick Leukocytes (reference range) trace Not Available [facility] [address] [facility] [address], [place], [address], 02/23/2025 14:16:48 02/24/20 25 02/23/2025 urina lysis , dipst ick Nitrite (reference range:) negati ve Not Available [place] [address] [address] [facility] [address], [place], [address], 02/23/2025 14:16:48 02/24/20 25 02/23/2025 urina lysis , dipst ick Urobilinogen (reference range) 0.2 Not Available [facility] [address] [facility] [address], [place], [address], 02/23/2025 14:16:48 02/24/20 25 02/23/2025 urina lysis , dipst ick Protein (reference range) negati ve Not Available [facility] [address] [facility] [address], [place], [address], 02/23/2025 14:16:48 02/24/20 25 02/23/2025 urina lysis , dipst ick pH (reference range 5-8.5) 6.0 Not Available [facility] [address] [facility] [address], [place], [address], 02/23/2025 14:16:48 02/24/20 25 02/23/2025 urina lysis , dipst ick Blood (reference range:) small Not Available [facility] [address] [facility] [address], [place], [address], 02/23/2025 14:16:48 02/24/20 25 02/23/2025 urina lysis , dipst ick Specific [place] (reference range) 1.015 Not Available [place] [address], [place], [address], 02/23/2025 14:16:48 02/24/20 25 02/23/2025 urina lysis , dipst ick Ketone (reference range) negati ve Not Available [place] [address] [address] [facility] [address], [place], [address], 02/23/2025 14:16:48 02/24/20 25 02/23/2025 urina lysis , dipst ick Bilirubin (reference range) negati ve Not Available [place] [address] [address] [facility] [address], [place], [address], 02/23/2025 14:16:48 02/24/20 25 02/23/2025 urina lysis , dipst ick Glucose (reference range) 500 Not Available [place] [address] [address] [facility] [address], [place], [address], 02/23/2025 14:16:48 02/24/20 25 02/23/2025 urina lysis , dipst ick Color (reference range: yellow-brown ) Dark Yellow Not Available [place] [address] [address] [facility] [address], [place], [address], 02/23/2025 14:16:48 Result Notes None recorded. Problems Name Problem SNOMED Code Status Onset Date Resolution Date Notes Provider Name and Address Organization Details Recorded Time Syncope 589263725 Active 2021 Malina Hernandez DO [address] [facility], [place], [address] , [place] [facility] & [place] 15:33:04 [facility] [id number] Active 2021 Malina Hernandez DO [address], [place], [address] , [place] [facility] [place] & [place] 15:34:08 Problem Notes None recorded. Procedures Surgical History Date Name Laterality Status Provider Name and Address Organization Details Recorded Time 09/25/20 23 Cystoscopy-Female completed Silvio Valdez MD [address], [place], [address], [place] [facility] [place] & [place] 09/25/2023 15:26:11 04/04/20 22 Date of Last Pap Smear completed Vandana Eugenioa [place] [facility] [place] & [place] 10/03/2022 14:31:43 10/28/19 22 Pipe Line Gauger Surgery completed Vandana Dalla [place] [facility] [place] & [place] 10/03/2022 14:45:45 10/28/19 17 Cholecystectomy completed Vandana Dalla [place] [facility] [place] 10/03/2022 14:32:27 10/28/19 14 Other completed Vandana Dalla [place] [facility] [place] 10/03/2022 14:44:51 cardiac catheterization completed Vandana Dalla [place] [facility] [place] 10/03/2022 14:46:31 strabismus surgery completed Vandana Dalla [place] [facility] [place] 10/03/2022 14:55:15 Imaging Results None recorded. Procedure Notes None recorded. Medical Equipment None Reported. Allergies Allergen ID Allergen Name Allergen Category Reaction Reaction Severity Criticality Documentation Date Start Date Code Code System Note Provider Name and Address Organization Details Recorded Time 92651 aspirin medicatio n chest pain wheezing moderate severe Not available 10/02/2022 1191 RxNorm Vandana Eugenioa [place], [place] [facility] [place] & [place] 2 09:22:42 71971 Bactrim medicatio n arthralgi a (joint pain) muscle cramps severe severe Not available 10/02/2022 40698 9 RxNorm Vandana Eugenioa [place], [place] [facility] [place] & [place] 2 09:22:49 75643 insect venom environme nt confusion cough dizziness fever flushing headache wheezing moderate moderate moderate mild moderate moderate moderate Not available 10/02/2022 73785 UNK Vandana catherine, [facility] DARLING [facility] & [place] 2 09:23:13 94638 Pneumococ georges vaccine Not available anaphylax is chest pain facial swelling nausea rash wheezing moderate moderate moderate moderate moderate moderate Not available 10/02/2022 33958 7 RxNorm RAFITA Reed [facility] & [place] 2 09:23:25 89268 rosuvasta tin medicatio n eye swelling facial swelling respirato ry distress moderate moderate moderate Not available 10/02/2022 18717 2 RxNorm Vandana catherine, RAFITA DARLING [facility] & [place] 2 09:23:35 Medications Name Sig [...] % 2 L/min 89 /min 48.3 kg/m2 521481. 39 g 128 mm[Hg] 98 mm[Hg] Phillip Morrison [place] [facility] & [place] 3 13:04:48 Date Recorded Body height Body mass index (BMI) Body weight Systolic blood pressure Diastolic blood pressure Provider Name and Address Organization Details Last Updated DateTime 08/07/2023 157.48 cm 49.4 kg/m2 514912.9 4 g 125 mm[Hg] 75 mm[Hg] Britney Yee [place] [facility] & [place] 3 15:05:24 Date Recorded Body height Body mass index (BMI) Body weight Systolic blood pressure Diastolic blood pressure Provider Name and Address Organization Details Last Updated DateTime 09/25/2023 157.48 cm 51.2 kg/m2 684348.8 6 g 126 mm[Hg] 76 mm[Hg] Ioana Ayala [facility] & [place] 3 15:07:04 Date Recorded Heart rate Body height Oxygen saturation Oxygen saturation in Arterial blood by Pulse oximetry Heart rate Body temperature Body mass index (BMI) Body weight Systolic blood pressure Diastolic blood pressure Provider Name and Address Organization Details Last Updated DateTime 5 80 /min 160.02 cm 96 % 96 % 80 /min 98.6 [degF] 49.6 kg/m2 756458. 86 g 116 mm[Hg] 100 mm[Hg] Bianca ELLER [facility] & [place] 5 13:59:18 Date Recorded Body height Heart rate Oxygen saturation Oxygen saturation in Arterial blood by Pulse oximetry Heart rate Body temperature Body mass index (BMI) Body weight Systolic blood pressure Diastolic blood pressure Provider Name and Address Organization Details Last Updated DateTime 5 160.02 cm 60 /min 97 % 97 % 60 /min 97.7 [degF] 49.6 kg/m2 636720. 86 g 119 mm[Hg] 79 mm[Hg] Bianca Smith [facility] & [place] 5 13:31:54 Social History Question Answer Notes LastModified by [employer] ion Details LastModified Time Tobacco Smoking Status Never Smoker [facility] [place] 10/03/2022 14:32:09 Do You Have An Advance Directive? No Information not available 10/03/2022 Are You Blind Or Do You Have Difficulty Seeing? No Information not available 10/03/2022 What Was The Date Of Your Most Recent Tobacco Screening? 09/17/2022 Information not available 10/03/2022 Do You Have Any Pets? Yes [email or web address] Information not available 09/25/2023 Are You Passively Exposed To Smoke? No Information not available 10/03/2022 Are You Currently In School? No MASTERS [email or web address] Information not available 09/25/2023 Sex: Female Functional Status Question Answer Note LastModified by Organizat ion Details LastModified Time Do you use any illicit or recreational drugs? No Information not available 10/03/2022 What is your level of alcohol consumption? 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 Occasional Information not available 10/03/2022 Mental Status Question Answer Note LastModified by Organization D etails LastModified Time Do you feel stressed (tense, restless, nervous, or anxious, or unable to sleep at night)? [id number] Information not available 10/03/2022 Family History Relationship [...] SNOMED-CT Code Diagnosis ICD10 Code Diagnosis Note [id number] DO SUZANNA Sanchez [facility] Neurology [address] [facility] [facility],[address] [place] [address] 10/03/2022 14:07:23 10/03/2022 15:38:25 Syncope [id number] R55 She has been experienci ng these stereotypi georges passing out episodes for five years. No definite witnessed convulsion s but some associated brief confusion afterwards .will order EEG to rule out neurologic causes of syncope Hypersomnia 14016941 G47 .10 She describes some significan t episodes of pathologic al sleepiness . She will fall asleep without warning in the middle of talking. This is very infrequent but can be suggestive of narcolepsy . Will order PSG with MSLT to evaluate this in more detail. [id number] Micheline Lackey MD [facility] General Surgery [address] [place] [address],[address] [place] [address] 04/02/2023 12:53:55 04/02/2023 13:53:12 Pelvic mass 47402530 R19.00 Possible lymphocele versus ovarian remnant from [...] patient with lab levels and consider further [employer]TER[employer] ARCHITECT follow up. [id number] Silvio Valdez MD [facility] Urology [address] [place] [address],[address] [place] [address] 08/07/2023 14:35:57 08/07/2023 15:40:17 Recurrent urinary tract infection 984476460 N39.0 Kidney stone 55914105 N2 0.0 Chronic th oracic back pain 9920321788 56172 M54.6 Microscopic hematuria 19 6994263 R31.29 [id number] Silvio Valdez MD [facility] Urology [address] [place] [address] [address] [place] [address] 09/25/2023 14:26:57 09/25/2023 15:25:02 Recurrent urinary tract infection 725860911 N39.0 Kidney stone 14165240 N2 0.0 Microscopic hematuria 19 8168590 R31.29 [id number] Marilou Maloney-[place] in, [employer] [facility] Infectiou s Disease -[address] [place] [address] 02/23/2025 13:48:33 02/23/2025 14:17:11 Recurrent urinary tract infection 898729087 N39.0 Will check lab work. Will send urine off for a culture. Will see patient back in 1 week. 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 Patient will follow up in 2 weeks. Call the office if anything persists or worsens. 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 see above Health Concerns Section Related Observation LastModified by Organization Detai ls LastModified Time None Recorded Concern Status LastModified by Organization Details LastModified Time None Recorded Advance Directives Directive N: Payers Insurance Date Sequence Insurance Name Policy Number Policy Valdivia Covered Member ID Valdivia Member ID Guarantor Name 09/18/2023 1 [facility] (POS II) [facility] [id number] [facility] 02/27/2025 1 [employer] (MEDICAID HMO) [facility] [id number] [facility] Notes Date Note Type Note Provider Name and Address Organization Details Recorded Time 04/02/2023 text/html 47-year-old woma n referred for a right pelvic fluid collection. Patient had hysterectomy, right salpingo-oophorectomy in 2021. She has undergone imaging on several occasions since then for some occasional, dull, aching right flank pain. She has a 7.4 cm right adnexal fluid collection that has enlarged somewhat over time. 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 Micheline Lackey MD [address], [place], [address], [facility] - [place] - [place] & [place] 04/18/2023 12:50:43 08/07/2023 text/html Location: [...] status post hysterectomy. Silvio Valdez MD [address] [facility], [place], [address], [facility] - [place] - [place] & [place] 08/07/2023 15:35:17 09/25/2023 text/html Patient [...] post hysterectomy. Silvio Valdez MD [address], [place], [address], [facility] & [place] 09/25/2023 15:30:10 02/23/2025 text/html patient presents to [...] April 2025. Marilou David APRN [address], [place], [address], [facility] & [place] 02/24/2025 10:59:38 03/02/2025 text/html patient presents to clinic for follow up. Urine culture results received. Patient denies any fever. She is scheduled to have surgery to remove her stone on . Marilou David APRN [address], [place], [address], [facility] & [place] 03/02/2025 13:35:40 OBGyn Episode No OBEpisode recorded.
--- OUTSIDE RECORDS SUMMARY | 2025-03-11 23:43 | XMS_ITS | Continuity of Care Document ---
Author Organization [facility] Infectious Disease -[address] Address [address] [place] [address] Care Team Providers Care District Representative Name Role Phone SHERI BENAVIDESGHT Primary Care Provider Assessment No assessment recorded. Plan of Treatment Reminders Order Date Submit Date Provider Last Modified By Organization Details Last Modified Time Details Appointments Establish ed Visit 15 min 2024 01:45P M Marilou nation APRN Not available Not available Not available Lab urinalysi s, dipstick [address] Infectious Disease -105, [address], [place], [address], 02/23/2025 14:18:52 CBC w/ diff 2024 025 [facility] (Registration ), [address] , [place], [address], 02/23/2025 16:11:55 CMP, serum or plasma 2024 025 [facility] (Registration ), [address] , [place], [address], 02/23/2025 15:39:03 ESR (erythroc yte sedimenta tion rate), blood [address] (Registration ), [address] , [place], [address], 03/09/2025 08:54:47 C-reactiv e protein, quantitat estefania, serum or plasma 2024 025 [email or web address] [facility] (Registration ), [address], [place], [address], 03/09/2025 08:54:48 culture, urine 2024 025 [facility], [address], [address], [place], [address], 02/27/2025 19:09:52 Referral None recorded. Procedures None recorded. Surgeries None recorded. Imaging None recorded. Medication Orders None recorded. Patient TargetsNo targets recorded. Patient InstructionsNo instructions recorded. Reason for Referral None Reported. Results Created Date Observation Date Name Description Value Unit Range Abnormal Flag Note LastModifiedBy Organization Detail LastModifiedTime 02/24/2002/23/2025 urina lysis , dipst ick Leukocytes (reference range) trace Not Available [facility] [address], [place], [address], 02/23/2025 14:16:48 02/24/20 25 02/23/2025 urina lysis , dipst ick Nitrite (reference range:) negati ve Not Available [facility] Infectious Disease [facility] [address], [place], [address], 02/23/2025 14:16:48 02/24/20 25 02/23/2025 urina lysis , dipst ick Urobilinogen (reference range) 0.2 Not Available [facility] Infectious [facility] -105 [address], [place], [address], 02/23/2025 14:16:48 02/24/20 25 02/23/2025 urina lysis , dipst ick Protein (reference range) negati ve Not Available [facility] Infectious Disease -[facility] [address] [facility] [address], [place], [address], 02/23/2025 14:16:48 02/24/20 25 02/23/2025 urina lysis , dipst ick pH (reference range 5-8.5) 6.0 Not Available [facility] Infectious [facility] [address], [place], [address], 02/23/2025 14:16:48 02/24/20 25 02/23/2025 urina lysis , dipst ick Blood (reference range:) small Not Available [place] [address] [address], [place], [address], 02/23/2025 14:16:48 02/24/20 25 02/23/2025 urina lysis , dipst ick Specific [place] (reference range) 1.015 Not Available [place] [address] [address], [place], [address], 02/23/2025 14:16:48 02/24/20 25 02/23/2025 urina lysis , dipst ick Ketone (reference range) negati ve Not Available [place] [address] [address], [place], [address], 02/23/2025 14:16:48 02/24/20 25 02/23/2025 urina lysis , dipst ick Bilirubin (reference range) negati ve Not Available [place] [address] [address], [place], [address], 02/23/2025 14:16:48 02/24/20 25 02/23/2025 urina lysis , dipst ick Glucose (reference range) 500 Not Available [place] [address] [address], [place], [address], 02/23/2025 14:16:48 02/24/20 25 02/23/2025 urina lysis , dipst ick Color (reference range: yellow-brown ) Dark Yellow Not Available [facility] Infectious Disease -[address], [place], [address], 02/23/2025 14:16:48 Result Notes None recorded. Problems Name Problem SNOMED Code Status Onset Date Resolution Date Notes Provider Name and Address Organization Details Recorded Time Syncope 420606173 Active 2021 Malina Hernandez DO [address], [place], [address] , [place] - [facility] - [place] & [place] 15:33:04 Hypersomnia 48060765 Active 2021 Malina Hernandez DO [address], [place], [address] , [place] - [facility] - [place] & [place] 15:34:08 Problem Notes None recorded. Procedures Surgical History Date Name Laterality Status Provider Name and Address Organization Details Recorded Time 09/25/20 23 Cystoscopy-Female completed Silvio Valdez MD [address], [place], [address], [place] [facility] & [place] 09/25/2023 15:26:11 04/04/20 22 Date of Last Pap Smear completed Vandana Dalla [place] - [facility] - [place] & [place] 10/03/2022 14:31:43 10/28/19 22 Press Catcher Surgery completed Vandana Dalla [place] [facility] & [place] 10/03/2022 14:45:45 10/28/19 17 Cholecystectomy completed Vandana Dalla [place] - [facility] & [place] 10/03/2022 14:32:27 10/28/19 14 Other completed Vandana Dalla [place] [facility] & [place] 10/03/2022 14:44:51 cardiac catheterization completed Vandana Dalla [place] [facility] & [place] 10/03/2022 14:46:31 strabismus surgery completed Vandana Dalla [place] [facility] & [place] 10/03/2022 14:55:15 Imaging Results None recorded. Procedure Notes None recorded. Medical Equipment None Reported. Allergies Allergen ID Allergen Name Allergen Category Reaction Reaction Severity Criticality Documentation Date Start Date Code Code System Note Provider Name and Address Organization Details Recorded Time 51650 aspirin medicatio n chest pain wheezing moderate severe Not available 10/02/2022 1191 RxNorm RAFITA Reed [facility] & [place] 2 09:22:42 15424 Bactrim medicatio n arthralgi a (joint pain) muscle cramps severe severe Not available 10/02/2022 12988 9 RxNorm RAFITA Reed [facility] & [place] 2 09:22:49 55547 insect venom environme nt confusion cough dizziness fever flushing headache wheezing moderate moderate moderate mild moderate moderate moderate Not available 10/02/2022 41532 UNK Vandana catherine, RAFITA DARLING [facility] & [place] 2 09:23:13 27098 Pneumococ georges vaccine Not available anaphylax is chest pain facial swelling nausea rash wheezing moderate moderate moderate moderate moderate moderate Not available 10/02/2022 43459 7 RxNorm RAFITA Reed [facility] & [place] 2 09:23:25 75114 rosuvasta tin medicatio n eye swelling facial swelling respirato ry distress moderate moderate moderate Not available 10/02/2022 39793 2 RxNorm Vandana catherine, RAFITA LISSET [facility] & [place] 2 09:23:35 Medications Name Sig Start Date [...] % 80 /min 98.6 [degF] 49.6 kg/m2 117896. 86 g 116 mm[Hg] 100 mm[Hg] Bianca Smith [facility] & [place] 13:59:18 Social History Question Answer Notes LastModified by Organizat ion Details LastModified Time Tobacco Smoking Status Never Smoker Vandana catherine, [facility] & [place] 10/03/2022 14:32:09 Do You Have An Advance Directive? No Information not available 10/03/2022 Are You Blind Or Do You Have Difficulty Seeing? No Information not available 10/03/2022 What Was The Date Of Your Most Recent Tobacco Screening? 09/17/2022 Information not available 10/03/2022 Do You Have Any Pets? Yes [email or web address] Information not available 09/25/2023 Are You Passively Exposed To Smoke? No Information not available 10/03/2022 Are You Currently In School? No MASTERS Information not available 09/25/2023 Sex: Female Functional Status Question Answer Note LastModified by Organizat ion Details LastModified Time Do you use any illicit or recreational drugs? No Information not available 10/03/2022 What is your level of alcohol consumption? 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 Occasional Information not available 10/03/2022 Mental Status Question Answer Note LastModified by Organization D etails LastModified Time Do you feel stressed (tense, restless, nervous, or anxious, or unable to sleep at night)? [id number] Information not available 10/03/2022 Family History Relationship [...] SNOMED-CT Code Diagnosis ICD10 Code Diagnosis Note [id number] Marilou Herbert in, [employer] [facility] Infectiou s Disease -105 [address] [facility] [address] [place] [address] 02/23/2025 13:48:33 02/23/2025 14:17:11 Recurrent urinary tract infection 806428555 N39.0 Will check lab work. Will send [...] Member ID Guarantor Name 02/23/2025 1 [employer] [facility] (MEDICAID HMO) [facility] [id number] [facility] Notes Date Note Type [...] with urology in April 2025. Marilou David, [employer] [address], [place], [address], [facility] - [place] - [place] & [place] 02/24/2025 10:59:38 OBGyn Episode No OBEpisode recorded.
[2025-03-12] VITALS (17 sets, daily range): BP systolic 85–127; BP diastolic 44–75; PULSE 63–83; RESP 15–18; TEMP 36.4–36.9; O2SAT 91–97; BMI 49.6
--- NOTE | 2025-03-12 00:58 | CT_ITS ---
PROCEDURE INFORMATION: Exam: CT Abdomen And Pelvis With Contrast Exam date and time: 03/12/2025 2:12 AM Age: 49 years old Clinical indication: Abdominal pain; Additional info: Flank pain HX stones/recurrent UTI TECHNIQUE: Imaging protocol: Computed tomography of the abdomen and pelvis with contrast. Radiation optimization: All CT scans at this facility use at least one of these dose optimization techniques: automated exposure control; mA and/or kV adjustment per patient size (includes targeted exams where dose is matched to clinical indication); or iterative reconstruction. Contrast material: ISOVUE; Contrast volume: 75 ml; Contrast route: IV; COMPARISON: CT ABDOMEN PELVIS WO CON 02/04/2025 10:23 PM FINDINGS: Liver: Fatty infiltration. Liver measures 20 cm. No mass. Gallbladder and biliary ducts: Surgically absent gallbladder without biliary ductal dilatation. Pancreas: Normal. No ductal dilation. Spleen: Normal. No splenomegaly. Adrenal glands: Normal. No mass. Kidneys and ureters: Similar left renal pelvic and lower calyceal staghorn and nonobstructive calculi. No hydronephrosis. No right nephroureterolithiasis or hydroureter. Stomach and bowel: Unremarkable. No obstruction. No mucosal thickening. Appendix: No evidence of appendicitis. Intraperitoneal space: Similar right pelvic cyst measuring 11 x 8.2 cm. No free air. No significant fluid collection. Vasculature: Unremarkable. No abdominal aortic aneurysm. Lymph nodes: Unremarkable. No enlarged lymph nodes. Urinary bladder: Unremarkable as visualized. Reproductive: Likely physiologic left ovarian cyst, measuring 4.7 x 4.3 cm. Ovaries not visualized. Bones/joints: Unremarkable. No acute fracture. Soft tissues: Unremarkable. IMPRESSION: 1. Similar left renal pelvic and lower calyceal staghorn and nonobstructive renal calculi. 2. 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 3. Likely physiologic left ovarian cyst. 4. Hepatomegaly with fatty infiltration.
[2025-03-12 01:05] LABS: Microscopic, Urine URINE MICROSCOPIC (MICROSCOPIC)
[2025-03-12 01:39] LABS: Basophils # 0.1 K/mm3 (0-0.2); Basophils % 0.6 % (0.1-2.0); Eosinophils # 0.3 Kmm3 (0.0-0.4); Eosinophils % 1.8 % (0.1-12.0); Hematocrit 47.9 % (37.0-47.0); Hemoglobin 15.4 g/dL (12.2-16.2); Immature Granulocytes # 0.06 10^3uL; Immature Granulocytes % 0.4 %; Lymphocytes # 3.3 K/mm3 (0.7-4.5); Lymphocytes % 23.1 % (10-50); Mean Corpuscular HGB Conc 32.2 g/dL (31.8-35.4); Mean Corpuscular Hemoglobin 27.9 pg (27.0-31.2); Mean Corpuscular Volume 86.8 fl (81-99); Mean Platelet Volume 10.1 fl (7.4-10.4); Monocytes # 0.9 K/mm3 (0.1-1.0); Monocytes % 6.5 % (1.7-9.3); Neutrophils # 9.6 K/mm3 (1.8-7.8); Neutrophils % 67.6 % (37.0-80.0); Nucleated Red Blood Cells # 0 10^3/uL; Nucleated Red Blood Cells % 0 %; Platelet Count 294 K/mm3 (142-424); Red Blood Count 5.52 M/mm3 (4.20-5.40); Red Cell Distribution Width 13.8 % (11.5-17.5); Red Cell Distribution Width-SD 43.7 fL; White Blood Count 14.2 K/mm3 (4.8-10.8)
[2025-03-12] MEDS: LACTATED RINGERS 1000ML 1,000 ML 999 ML IV (01:39)
[2025-03-12 01:53] LABS: Albumin Level 4.3 g/dl (3.5-5.0); Chloride 98 mmol/L (98-107); Sodium 135 mmol/L (136-145)
[2025-03-12 01:54] LABS: Potassium 3.8 mmoL/L (3.5-5.1)
[2025-03-12 01:55] LABS: Lactic Acid 1.7 mmol/L (0.7-2.1)
[2025-03-12 01:56] LABS: Alanine Aminotransferase 55 U/L (12-78); Albumin/Globulin Ratio 1.3 (1.1-1.8); Alkaline Phosphatase 114 U/L (38-126); Anion Gap 12.8 mEq/L (5-15); Aspartate Amino Transferase 44 U/L (14-36); Bilirubin,Total 0.6 mg/dl (0.2-1.3); Blood Urea Nitrogen 20 mg/dl (7-17); Carbon Dioxide 28 mmol/L (22.0-30.0); Creatine Kinase 33 U/L (30-135); Creatinine Clearance Estimated 61 mL/min (50-200); Estimated Glomerular Filt Rate 66 ml/min (>60); GFR (African American) 80 ML/MIN (>60); Globulin 3.3 g/dL (1.3-3.2); Total Protein,Serum 7.6 g/dl (6.3-8.2)
[2025-03-12 01:57] LABS: Calcium 8.9 mg/dl (8.4-10.2); Glucose 169 mg/dl (74-100); Magnesium 1.8 mg/dl (1.6-2.3); Phosphorous 3.4 mg/dl (2.5-4.5)
--- NOTE | 2025-03-12 01:57 | ED_ITS ---
Discharge Plan Disposition Patient Disposition: Admitted Condition: Fair Chief Complaint: Urogenital-Female Prescriptions Prescriptions: No Action spironolactone [Aldactone] 50 mg tablet 50 mg PO DAILY Entresto 24-26 mg tablet 1 tab PO BID (DME) OneTouch Verio test strips Strip See Rx Instructions .Route Qty: 300 1RF Rx Instructions: As directed methenamine hippurate 1 gram tablet 1 g PO BID Qty: 60 5RF empagliflozin 25 mg tablet 25 mg PO DAILY Qty: 90 1RF oxybutynin chloride 5 mg tablet 5 mg PO BID PRN (Reason: bladder spasms) Qty: 60 1RF amoxicillin 500 mg capsule 1,000 mg PO TID Qty: 60 0RF albuterol sulfate [ProAir HFA] 90 mcg/actuation HFA aerosol inhaler 2 puff IH Q4HP PRN (Reason: Shortness Of Breath) omeprazole 20 mg capsule,delayed release(DR/EC) 20 mg PO DAILY pravastatin 40 mg tablet 40 mg PO HS Qty: 90 1RF tramadol 50 mg tablet 50 mg PO Q6H PRN (Reason: pain) Qty: 120 0RF sennosides [senna] 8.6 mg tablet 8.6 mg PO BID PRN (Reason: constipation) Qty: 30 0RF oxycodone 5 mg tablet 5 mg PO Q8H PRN (Reason: pain) Qty: 60 0RF metformin 500 mg tablet 500 mg PO BID Qty: 180 1RF Rx Instructions: TAKE ONE TABLET BY MOUTH TWICE DAILY ibuprofen 800 mg tablet 800 mg PO TID PRN (Reason: Pain) Qty: 90 2RF Rx Instructions: TAKE ONE TABLET BY MOUTH THREE TIMES DAILY NEEDED WITH FOOD bumetanide 2 mg tablet 2 mg PO BID Qty: 180 1RF ascorbic acid (vitamin C) [Vitamin C] 500 mg tablet 500 mg PO BID Rx Instructions: TAKE ONE TABLET BY MOUTH TWICE DAILY montelukast 10 mg tablet 10 mg PO HS Rx Instructions: TAKE ONE TABLET BY MOUTH EVERY DAY AT BEDTIME FOR ASTHMA cholecalciferol (vitamin D3) 125 mcg (5,000 unit) capsule 5,000 unit PO Q48H Mounjaro 2.5 mg/0.5 mL pen injector 2.5 mg SQ WEEKLY Rx Instructions: for 4 weeks oxycodone-acetaminophen 5-325 mg tablet 1 tab PO Q6H PRN (Reason: pain) Qty: 11 0RF ketorolac 10 mg tablet 10 mg PO Q6H PRN (Reason: pain) 5 Days Qty: 20 0RF nebivolol 5 MG tablet 5 mg PO DAILY cetirizine [Zyrtec] 10 mg Tablet 10 mg PO DAILY Clinical Impressions Clinical Impression: Staghorn renal calculus, Left flank pain, UTI (urinary tract infection), Flank pain, Complicated urinary tract infection, Pyelonephritis Print Language Print Language: Bahraini Discharge ED Provider: Taiwo Ivy General Adult HPI General Chief complaint: Urogenital-Female Stated complaint: kidney stone, dizziness, nausea, abd, groin pain Time Seen by Provider: 03/12/25 00:57 Mode of Arrival: Wheelchair Source of Information: Patient Description of Symptoms (Recalled from ER Triage Doc. by RN): Pt presents with c/o infected kidney stone . Pt states she was diagnosed with a kidney stone one month ago. Pt states she was prescribed abx of amoxicillin 1 week ago, for kidney infection. Pt states she is still having flank pain, chills, and nausea. History of Present Illness HPI narrative: 49-year-old female with history of recurrent urinary tract infection, known staghorn calculus, multiple previous kidney stones presents to the ER with complaints of abdominal pain, urinary discomfort, left flank pain. Patient reports [place] infectious disease recently did a urine culture and she is on amoxicillin. She states she has been on antibiotics for just over a week. She states unfortunately in the last few days her symptoms have gotten progressively worse and she is having nausea and worsening flank pain. No documented fevers. Patient reports she has follow-up for removal of kidney stones coming up in April. Patient reports taking oxycodone prior to arrival without significant relief of symptoms. She denies chest pain, difficulty breathing, diarrhea, constipation, or any other associated symptoms. Related Data Home Medications ?Medication ?Instructions ?Recorded ?Confirmed nebivolol 5 mg tablet 5 mg PO DAILY 12/21/21 03/03/25 albuterol sulfate 90 mcg/actuation 2 puff inhalation Q4HP PRN 12/28/21 03/03/25 aerosol inhaler (ProAir HFA) Shortness Of Breath spironolactone 50 mg tablet 50 mg PO DAILY 03/30/22 03/03/25 (Aldactone) omeprazole 20 mg capsule,delayed 20 mg PO DAILY 04/24/22 03/03/25 release sacubitril 24 mg-valsartan 26 mg 1 tab PO BID 03/04/23 03/03/25 tablet (Entresto) cetirizine 10 mg tablet (Zyrtec) 10 mg PO DAILY 02/06/24 03/03/25 ascorbic acid (vitamin C) 500 mg 500 mg PO BID 01/27/25 03/03/25 tablet (Vitamin C) cholecalciferol (vitamin D3) 125 5,000 unit PO Q48H 01/27/25 03/03/25 mcg (5,000 unit) capsule montelukast 10 mg tablet 10 mg PO HS 01/27/25 03/03/25 tirzepatide 2.5 mg/0.5 mL 2.5 mg SQ WEEKLY 01/28/25 03/03/25 subcutaneous pen injector (Fadi) Previous Rx's ?Medication ?Instructions ?Recorded blood sugar diagnostic (OneTouch #300 ea 09/02/24 Verio test strips) methenamine hippurate 1 gram tablet 1 g PO BID #60 tabs 10/07/24 pravastatin 40 mg tablet 40 mg PO HS #90 tabs 11/11/24 oxycodone-acetaminophen 5 mg-325 1 tab PO Q6H PRN pain #11 tabs 01/29/25 mg tablet tramadol 50 mg tablet 50 mg PO Q6H PRN pain #120 tabs 02/02/25 empagliflozin 25 mg tablet 25 mg PO DAILY #90 tabs 02/03/25 oxybutynin chloride 5 mg tablet 5 mg PO BID PRN bladder spasms #60 02/03/25 tabs sennosides 8.6 mg tablet (senna) 8.6 mg PO BID PRN constipation #30 02/03/25 tabs ketorolac 10 mg tablet 10 mg PO Q6H PRN pain 5 days #20 02/05/25 tabs oxycodone 5 mg tablet 5 mg PO Q8H PRN pain #60 tabs 02/19/25 ibuprofen 800 mg tablet 800 mg PO TID PRN Pain #90 tabs 02/26/25 metformin 500 mg tablet 500 mg PO BID #180 tabs 02/26/25 bumetanide 2 mg tablet 2 mg PO BID #180 tabs 03/01/25 amoxicillin 500 mg capsule 1,000 mg (2 x 500 mg) PO TID 03/03/25 Vancomycin-resistant enterococcal UTI #60 caps Allergies Allergy/AdvReac Type Severity Reaction Status Date / Time aspirin Allergy Severe S-DIFF. Verified 03/03/25 13:08 BREATHING bee venom protein (honey bee) Allergy Severe Anaphylaxis Verified 03/03/25 13:08 Bleach (Sodium Hypochlorite) Allergy Severe diff. Verified 03/03/25 13:08 breathing, dizzy amoxicillin (From Augmentin) Allergy Mild Unknown Verified 03/03/25 13:08 allergy reaction clavulanic acid (From Allergy Mild Unknown Verified 03/03/25 13:08 Augmentin) allergy reaction fluconazole (From Diflucan) Allergy Mild Unknown Verified 03/03/25 13:08 allergy reaction levofloxacin (From Levaquin) Allergy Difficulty Verified 03/03/25 13:08 Breathing pneumococcal vaccine Allergy Unknown Verified 03/03/25 13:08 allergy reaction sulfamethoxazole (From Allergy Unknown Verified 03/03/25 13:08 Bactrim) allergy reaction trimethoprim (From Bactrim) Allergy Unknown Verified 03/03/25 13:08 allergy reaction sucralose (From SUCRALOSE AdvReac Severe breathing Verified 03/03/25 13:08 (FOOD/DRUG)) problems PFSH [facility] Disclaimer: The information contained in this section may have been updated after the patient was seen, as this information can be updated by other users. Medical History Right nephrolithiasis UTI (urinary tract infection) Ovarian cyst Hematuria Vaginal pruritus History of nephrolithotomy with removal of calculi Hyperparathyroidism Multiple thyroid nodules Asthma with exacerbation Syncopal episodes POSSIBLY DUE TO POTS Right flank pain Adnexal mass Septic shock Severe sepsis with acute organ dysfunction Cellulitis of right wrist Pneumonia Syncope Altered mental status Surgical History History of cardiac catheterization x2 History of loop recorder History of eye surgery History of cholecystectomy S/P right oophorectomy S/P hysterectomy History of tubal ligation Family History Other Alzheimer disease Bipolar 1 disorder Dementia Family history of diabetes mellitus type II Family history of myocardial infarction Lung cancer Lupus Social History Smoking Status: Never smoker second hand exposure: No alcohol intake: never substance use type: denies use current occupational status: unemployed and disabled Travel in the last 8 weeks?: None household members: spouse housing: house current occupational exposures/hazards: No caffeine: Yes Have you lived/traveled outside US in past 30 days?: No Contact w/someone who lives/traveled outside US past 30 days?: No Exposure to someone with infectious disease in past 14 days?: No Do you have a fever (greater than 100.4 F or 38 C)?: No Have you tested positive for COVID-19?: No Exposed to someone with COVID-19 in past 14 days?: No Do you have a sore throat?: No Do you have a cough?: No Do you have any weakness?: No Do you have any diarrhea?: No Are you experiencing any unusual bleeding?: No Do you have any muscle aches/pain?: No Do you have any abdominal pain?: Yes Are you experiencing loss of taste or smell?: No Other Medical History Have you received the Flu Vaccine for this season: No Have you received the Pneumonia Vaccine: Yes ROS Obtained: Yes Systems reviewed as appropriate & no additional complaints except as documented per HPI Physical Exam General General appearance: alert, in no apparent distress and obese Head Head exam: atraumatic and normocephalic Eye Eye exam: Present PERRL and EOMI ENT ENT exam: Present mucous membranes moist Neck Neck exam: Present normal inspection and full ROM Chest Chest inspection: Present symmetric chest wall rise Respiratory Respiratory exam: Present normal lung sounds bilaterally; Absent respiratory distress, wheezes or stridor Cardiovascular Cardiovascular exam: Present regular rate and normal rhythm Abdominal Exam Abdominal exam: Present soft and tenderness (mild suprapubic); Absent distention, guarding or rebound Extremities Exam Extremities exam: Present full ROM; Absent edema Back Exam Back exam: Present CVA tenderness (L); Absent CVA tenderness (R) Neurological Exam Neurological exam: Present alert and oriented X3; Absent motor sensory deficit Psychiatric Psychiatric exam: Present normal affect and normal mood Skin Skin exam: Present warm and dry Medical Decision Making Medical Records Medical records reviewed: Yes I reviewed the patient's medical records. Screening: Per USPSTF and CDC recommendations, given the prevalence of disease in our region, it is our hospital?s policy to screen for HIV and viral Hepatitis for all patients aged 18 and over and those with ongoing risk factors. MR Comment: Patient showed me the urine culture results from [place] which demonstrate VRE and strep saprophyticus resistant to oxacillin. Harjinder Inquiry Pt receiving controlled substance: No Vital Signs: 03/11/25 23:34 Temperature 97.6 F Temperature Source Temporal Artery Scan Pulse Rate [Right] 87 Respiratory Rate 18 Blood Pressure [Right Arm] 116/80 Blood Pressure Mean [Right Arm] 92 02 Sat by Pulse Oximetry 100 Oxygen Delivery Method Room Air Lab Data Lab Results 03/12/25 01:32: WBC 14.2 H, RBC 5.52 H, Hgb 15.4, Hct 47.9 H, MCV 86.8, MCH 27.9, MCHC 32.2, RDW 13.8, Plt Count 294, MPV 10.1, Neut % (Auto) 67.6, Lymph % (Auto) 23.1, [place] % (Auto) 6.5, Eos % (Auto) 1.8, Baso % (Auto) 0.6, Neut # (Auto) 9.6 H, Lymph # (Auto) 3.3, [place] # (Auto) 0.9, Eos # (Auto) 0.3, Baso # (Auto) 0.1, Sodium 135 L, Potassium 3.8, Chloride 98, Carbon Dioxide 28, Anion Gap 12.8, BUN 20 H, Creatinine 0.90, Estimated Creat Clear 61, Estimated GFR 66, Est GFR ( Amer) 80, Glucose 169 H, Lactate 1.7, Calcium 8.9, Phosphorus 3.4, Magnesium 1.8, Total Bilirubin 0.6, AST 44 H, ALT 55, Alkaline Phosphatase 114, Total Creatine Kinase 33, Total Protein 7.6, Albumin 4.3, Globulin 3.3 H, Albumin/Globulin Ratio 1.3, Serum HCG, Qual Negative 03/12/25 01:37: Urine Color Yellow, Urine Appearance Cloudy, Urine pH 6.0, Ur Specific [place] 1.010, Urine Protein Trace, Urine Glucose (UA) 3+, Urine Ketones Negative, Urine Blood 3+ A, Urine Nitrate Negative, Urine Bilirubin Negative, Urine Urobilinogen 0.2, Ur Leukocyte Esterase 1+ A, Urine RBC Tntc, Urine WBC Tntc 03/12/25 01:32 03/12/25 01:32 Orders (Tests/Meds): ED MEDICATIONS Generic Name Dose Route Start Last Admin Trade Name Freq PRN Reason Stop Dose Admin Ertapenem 1 gm/ Sodium 50 mls @ 100 mls/hr 03/12/25 04:00 03/12/25 04:28 Chloride IV 03/22/25 03:59 100 mls/hr Q24H ARINA Administration Sodium Chloride 10 ml 03/12/25 02:20 03/12/25 02:20 Sodium Chloride 0.9% 10ml Syr (Rad Only) IV 04/11/25 02:19 10 ml NEEDED PRN Administration Maintain IV Site Discontinued Medications Generic Name Dose Route Start Last Admin Trade Name Freq PRN Reason Stop Dose Admin Lactated Ringer's 1,000 mls @ 999 mls/hr 03/12/25 00:59 03/12/25 01:39 Lactated Ringer's 1000 Ml Bag IV 03/12/25 01:59 999 mls/hr .Q1H1M ONE Administration Iopamidol 75 ml 03/12/25 02:20 03/12/25 02:20 Iopamidol-370 (76%);100ml Bottle IV 03/12/25 02:21 75 ml ONCE ONE Administration Ketorolac Tromethamine 30 mg 03/12/25 04:16 03/12/25 04:29 Ketorolac 30mg/Ml Vial IV 03/12/25 04:17 30 mg ONCE ONE Administration Morphine Sulfate 8 mg 03/12/25 02:02 03/12/25 02:22 Morphine 4mg/Ml Syringe IV 03/12/25 02:03 8 mg ONCE ONE Administration Ondansetron HCl 4 mg 03/12/25 02:00 03/12/25 02:22 Ondansetron 4mg/2ml Vial IV 03/12/25 02:01 4 mg ONCE ONE Administration ORDERS Category Date Time Status CT abdomen pelvis w con Stat Cat Scan 03/12/25 00:58 Completed CBC w/Auto Diff [Complete Blood Count Auto Diff] Stat Lab 03/12/25 01:32 Completed CK [Creatine Kinase] Stat Lab 03/12/25 01:32 Completed CMP [Comprehensive Metabolic Panel] Stat Lab 03/12/25 01:32 Completed HCG Qualitative, Serum Stat Lab 03/12/25 01:32 Completed Lactic Acid Stat Lab 03/12/25 01:32 Completed Magnesium Stat Lab 03/12/25 01:32 Completed Phosphorous Stat Lab 03/12/25 01:32 Completed Urinalysis and Microscopic Stat Lab 03/12/25 01:37 Completed Urine Culture Stat Micro 03/12/25 01:37 Received Medical Decision Narrative: In summary, this 49-year-old female with comorbidities described in the HPI which are not be at goal therapy presents to the emergency department today with concerns of infected kidney stone, dysuria, flank pain despite being on antibiotics. On initial evaluation patient is hemodynamically stable, afebrile, appears uncomfortable but nontoxic. Patient has mild suprapubic tenderness as well as severe left CVA tenderness. No peritonitic findings on exam. Differential diagnosis includes but is not limited to UTI, pyelonephritis, perinephric abscess, patient does not meet criteria for sepsis at this time but I did consider this. Based on these concerns, I ordered serum labs, urine studies, CT imaging. Patient initially received morphine, IV fluids, Zofran for symptomatic management. Labs personally reviewed demonstrate worsening leukocytosis, no anemia, normal platelets, CMP with prerenal azotemia, patient is already receiving IV fluids. Lactic normal at 1.7 reassuring against endorgan damage, CK improved from a few days ago when she was evaluated in the ER now 33 down from 324. Calcium normal at 8.9 reassuring against hypocalcemia despite patient having recent parathyroidectomy, magnesium and phosphorus normal. Patient has too numerous to count red and white blood cells concerning for persistent urinary tract infection despite amoxicillin. CT abdomen pelvis personally interpreted demonstrates left staghorn calculus, no perinephric abscess, no other acute intra-abdominal pathology, see radiology read for final interpretation. Incidental findings were discussed with the patient. With the findings of persistent UTI, staghorn calculus, increasing leukocytosis as well as patient's worsening symptomatic burden despite being on outpatient antibiotics I reached out to the [facility] and spoke with Archie the pharmacist on-call. After discussing the patient's recent urine cultures as well as her history of other antibiotics and failure of amoxicillin he recommended ertapenem, daptomycin, or linezolid. Since patient has recently had and tolerated ertapenem well, this was selected. A dose of this has been given in the ER. Patient was also still complaining of pain but only requested Toradol at this time. This was administered. I believe patient requires transfer for higher level of care to have staghorn stone removed and continued treatment of multidrug-resistant urinary tract infection, pyelonephritis. I discussed this case with [facility] since patient is scheduled for urology follow-up and procedure with them coming up in April. [facility] does not have urology available at this time. At [address] Olvera at [facility] and discussed this patient's presentation, recurrent UTIs and pyelonephritis in the setting of known left staghorn calculus. He agrees with the plan for ertapenem and that the patient requires admission for higher level of care. He did graciously accept the patient for transfer to [facility] however they do not have bed availability at this time so patient was placed on the wait list. Patient has preference to go to [facility] since she is established with their urology team. Since patient is on the wait list to go to [facility] and they do not anticipate having any bed availability until much later today, I discussed this case with the hospitalist for admission to our facility until bed becomes available for the patient. Patient was graciously excepted to the hospitalist service for admission. She is in stable condition at this time. Critical Care Critical Care Time Critical Care Time: No
[2025-03-12 01:58] LABS: Appearance,Urine CLOUDY (Clear); Bilirubin,Urine Negative (Negative); Blood, Urine 3+ (Negative); Color,Urine YELLOW (Yellow); Glucose,Urine (UA) 3+ (Negative); Ketones,Urine Negative (Negative); Leukocyte Esterase,Urine 1+ (Negative); Nitrate,Urine Negative (Negative); Protein,Urine TRACE (Negative); Urobilinogen,Urine 0.2 EU/dl (0.2)
[2025-03-12 02:01] LABS: HCG Qualitative, Serum Negative (Negative)
[2025-03-12 02:05] LABS: RBC,Urine TNTC #/hpf (0-3); WBC,Urine TNTC #/hpf (0-3)
[2025-03-12] MEDS: IOPAMIDOL-370 (76%);100ML BOTTLE 75 ML IV (02:20)
[2025-03-12] MEDS: SODIUM CHLORIDE 0.9% 10ML SYR (RAD ONLY) 10 ML IV (02:20)
[2025-03-12] MEDS: ONDANSETRON 4MG/2ML VIAL 4 MG IV ×2 (02:22→11:10)
[2025-03-12] MEDS: MORPHINE 4MG/ML SYRINGE 8 MG IV (02:22)
--- NOTE | 2025-03-12 04:00 | PC.NURSE ---
Patient is resting comfortably at this time. Call light within reach.
--- NOTE | 2025-03-12 04:00 | PC.NURSE ---
Spoke with [facility] transfer center, awaiting a call back at this time from their hospitalist
--- NOTE | 2025-03-12 04:18 | PC.NURSE ---
Spoke with [facility], awaiting a call back at this time
[2025-03-12] MEDS: ERTAPENEM SODIUM 1 GM in 0.9 % SODIUM CHLORIDE 50 ML IV (04:28)
[2025-03-12] MEDS: KETOROLAC 30MG/ML VIAL 30 MG IV (04:29)
--- NOTE | 2025-03-12 05:00 | PC.NURSE ---
patient resting peacefully. Call light within reach. Will continue to monitor,
--- NOTE | 2025-03-12 05:23 | P.HP_ITS ---
<Statement entered by Alexys Matias MD - 03/12/25 19:30> Rounded on patient after nurse practitioner. Personally examined and interviewed patient. Agree with exam findings and care plan as documented. History of Present Illness *Admission Date: 03/12/25 *Reason for visit:: Left flank pain *History of present illness: This is a 49year-old female with past medical history of staghorn calculi with known MDRO infection, COPD, DM 2, recent parathyroidectomy, RA, chronic pain, chronic diastolic heart failure who presents emergency department today with complaints of abdominal pain, urinary discomfort and left flank pain. She has a known staghorn calculi with procedure scheduled for the end of April. Has been on multiple antibiotics with multiple positive urine cultures/MDRO. She reports seeing [facility] who recently did a urine culture while she was on amoxicillin. States that she has been on this amoxicillin for approximately 1 week. States that her symptoms have gotten worse despite being on these antibiotics. She reports taking her home medications without significant relief. Denies any fever but does endorse nausea and vomiting. Workup in the emergency department notable for urinary tract infection, staghorn calculi and increasing leukocytosis with a white blood cell count of 14. Urine culture from [facility] notable for VRE, MDRO and staph saprophyticus with oxacillin resistance. ED provider graciously spoke with [facility] and spoke with pharmacist who recommended ertapenem, daptomycin or linezolid. Given patient has tolerated ertapenem in the past with multiple drug allergies listed, ER provider did initiate ertapenem. Given the complexity of her urological process, transfer was initiated to [facility] since patient does have follow-up scheduled with them at the end of April. Dr. Olvera graciously accepted patient however they do not have bed availability at this time as the patient has been waitlisted. Bed availability not likely available this morning. Patient does have preference to be admitted to [facility] given that is where her urology team is. Given likely prolonged bed assignment, will admit here for continuation of care and transfer once bed is available [facility] Disclaimer: The information contained in this section may have been updated after the patient was seen, as this information can be updated by other users. Medical History Right nephrolithiasis UTI (urinary tract infection) Ovarian cyst Hematuria Vaginal pruritus History of nephrolithotomy with removal of calculi Hyperparathyroidism Multiple thyroid nodules Asthma with exacerbation Syncopal episodes POSSIBLY DUE TO POTS Right flank pain Adnexal mass Septic shock Severe sepsis with acute organ dysfunction Cellulitis of right wrist Pneumonia Syncope Altered mental status Surgical History History of cardiac catheterization x2 History of loop recorder History of eye surgery History of cholecystectomy S/P right oophorectomy S/P hysterectomy History of tubal ligation Family History Other Alzheimer disease Bipolar 1 disorder Dementia Family history of diabetes mellitus type II Family history of myocardial infarction Lung cancer Lupus Social History Smoking Status: Never smoker second hand exposure: No alcohol intake: never substance use type: denies use current occupational status: unemployed and disabled Travel in the last 8 weeks?: None household members: spouse housing: house current occupational exposures/hazards: No caffeine: Yes Have you lived/traveled outside [place] in past 30 days?: No Contact w/someone who lives/traveled outside US past 30 days?: No Exposure to someone with infectious disease in past 14 days?: No Do you have a fever (greater than 100.4 F or 38 C)?: No Have you tested positive for COVID-19?: No Exposed to someone with COVID-19 in past 14 days?: No Do you have a sore throat?: No Do you have a cough?: No Do you have any weakness?: No Do you have any diarrhea?: No Are you experiencing any unusual bleeding?: No Do you have any muscle aches/pain?: No Do you have any abdominal pain?: Yes Are you experiencing loss of taste or smell?: No Other Medical History Have you received the Flu Vaccine for this season: No Have you received the Pneumonia Vaccine: Yes Review of Systems Review of Systems Review of systems:: pertinent systems reviewed and negative unless documented below Meds Home Medications and Allergies Home Medications ?Medication ?Instructions ?Recorded ?Confirmed ?Type nebivolol 5 mg tablet 5 mg PO DAILY 12/21/21 03/03/25 History albuterol sulfate 90 mcg/actuation 2 puff inhalation Q4HP PRN 12/28/21 03/03/25 History aerosol inhaler (ProAir HFA) Shortness Of Breath spironolactone 50 mg tablet 50 mg PO DAILY 03/30/22 03/03/25 History (Aldactone) omeprazole 20 mg capsule,delayed 20 mg PO DAILY 04/24/22 03/03/25 History release sacubitril 24 mg-valsartan 26 mg 1 tab PO BID 03/04/23 03/03/25 History tablet (Entresto) cetirizine 10 mg tablet (Zyrtec) 10 mg PO DAILY 02/06/24 03/03/25 History blood sugar diagnostic (OneTouch #300 ea 09/02/24 03/03/25 Rx Verio test strips) methenamine hippurate 1 gram tablet 1 g PO BID #60 tabs 10/07/24 03/03/25 Rx pravastatin 40 mg tablet 40 mg PO HS #90 tabs 11/11/24 03/03/25 Rx ascorbic acid (vitamin C) 500 mg 500 mg PO BID 01/27/25 03/03/25 History tablet (Vitamin C) cholecalciferol (vitamin D3) 125 5,000 unit PO Q48H 01/27/25 03/03/25 History mcg (5,000 unit) capsule montelukast 10 mg tablet 10 mg PO HS 01/27/25 03/03/25 History tirzepatide 2.5 mg/0.5 mL 2.5 mg SQ WEEKLY 01/28/25 03/03/25 History subcutaneous pen injector (Fadi) oxycodone-acetaminophen 5 mg-325 1 tab PO Q6H PRN pain #11 tabs 01/29/25 03/03/25 Rx mg tablet tramadol 50 mg tablet 50 mg PO Q6H PRN pain #120 tabs 02/02/25 03/03/25 Rx empagliflozin 25 mg tablet 25 mg PO DAILY #90 tabs 02/03/25 03/03/25 Rx oxybutynin chloride 5 mg tablet 5 mg PO BID PRN bladder spasms #60 02/03/25 03/03/25 Rx tabs sennosides 8.6 mg tablet (senna) 8.6 mg PO BID PRN constipation #30 02/03/25 03/03/25 Rx tabs ketorolac 10 mg tablet 10 mg PO Q6H PRN pain 5 days #20 02/05/25 03/03/25 Rx tabs oxycodone 5 mg tablet 5 mg PO Q8H PRN pain #60 tabs 02/19/25 03/03/25 Rx ibuprofen 800 mg tablet 800 mg PO TID PRN Pain #90 tabs 02/26/25 03/03/25 Rx metformin 500 mg tablet 500 mg PO BID #180 tabs 02/26/25 03/03/25 Rx bumetanide 2 mg tablet 2 mg PO BID #180 tabs 03/01/25 03/03/25 Rx amoxicillin 500 mg capsule 1,000 mg (2 x 500 mg) PO TID 03/03/25 03/03/25 Rx Vancomycin-resistant enterococcal UTI #60 caps New Prescriptions to Start Prescriptions: Allergies Allergy/AdvReac Type Severity Reaction Status Date / Time aspirin Allergy Severe S-DIFF. Verified 03/03/25 13:08 BREATHING bee venom protein (honey bee) Allergy Severe Anaphylaxis Verified 03/03/25 13:08 Bleach (Sodium Hypochlorite) Allergy Severe diff. Verified 03/03/25 13:08 breathing, dizzy amoxicillin (From Augmentin) Allergy Mild Unknown Verified 03/03/25 13:08 allergy reaction clavulanic acid (From Allergy Mild Unknown Verified 03/03/25 13:08 Augmentin) allergy reaction fluconazole (From Diflucan) Allergy Mild Unknown Verified 03/03/25 13:08 allergy reaction levofloxacin (From Levaquin) Allergy Difficulty Verified 03/03/25 13:08 Breathing pneumococcal vaccine Allergy Unknown Verified 03/03/25 13:08 allergy reaction sulfamethoxazole (From Allergy Unknown Verified 03/03/25 13:08 Bactrim) allergy reaction trimethoprim (From Bactrim) Allergy Unknown Verified 03/03/25 13:08 allergy reaction sucralose (From SUCRALOSE AdvReac Severe breathing Verified 03/03/25 13:08 (FOOD/DRUG)) problems Exam Data for Last 24 hours Vital signs and Labs for Last 24 Hours: Temp Pulse Resp BP Pulse Ox O2 Del Method 97.6 F 87 18 116/80 100 Room Air 03/11/25 23:34 03/11/25 23:34 03/11/25 23:34 03/11/25 23:34 03/11/25 23:34 03/11/25 23:34 Laboratory Results - last 24 hr 03/12/25 01:32: WBC 14.2 H, RBC 5.52 H, Hgb 15.4, Hct 47.9 H, MCV 86.8, MCH 27.9, MCHC 32.2, RDW 13.8, Plt Count 294, MPV 10.1, Neut % (Auto) 67.6, Lymph % (Auto) 23.1, [place] % (Auto) 6.5, Eos % (Auto) 1.8, Baso % (Auto) 0.6, Neut # (Auto) 9.6 H, Lymph # (Auto) 3.3, [place] # (Auto) 0.9, Eos # (Auto) 0.3, Baso # (Auto) 0.1, Sodium 135 L, Potassium 3.8, Chloride 98, Carbon Dioxide 28, Anion Gap 12.8, BUN 20 H, Creatinine 0.90, Estimated Creat Clear 61, Estimated GFR 66, Est GFR ( Amer) 80, Glucose 169 H, Lactate 1.7, Calcium 8.9, Phosphorus 3.4, Magnesium 1.8, Total Bilirubin 0.6, AST 44 H, ALT 55, Alkaline Phosphatase 114, Total Creatine Kinase 33, Total Protein 7.6, Albumin 4.3, Globulin 3.3 H, Albumin/Globulin Ratio 1.3, Serum HCG, Qual Negative 03/12/25 01:37: Urine Color Yellow, Urine Appearance Cloudy, Urine pH 6.0, Ur Specific [place] 1.010, Urine Protein Trace, Urine Glucose (UA) 3+, Urine Ketones Negative, Urine Blood 3+ A, Urine Nitrate Negative, Urine Bilirubin Negative, Urine Urobilinogen 0.2, Ur Leukocyte Esterase 1+ A, Urine RBC Tntc, Urine WBC Tntc I & O for Last 24 hours: Intake & Output 03/09/25 03/10/25 03/11/25 03/12/25 23:59 23:59 23:59 23:59 Weight 127.006 kg Constitutional Constitutional: no acute distress *Routine HEENT Exam Head: Present normocephalic Eye: Present EOMI and PERRL ENT: Present mucous membranes moist *Routine Neck Exam Neck: Present supple; Absent lymphadenopathy *Routine Respiratory Exam Respiratory: Present CTA bilaterally *Routine Cardiovascular Exam Cardiovascular: Present RRR *Routine Abdominal Exam Abdominal: Present soft and normoactive bowel sounds; Absent tenderness Comments: Left flank pain *Routine Rectal Exam Rectal:: deferred *Routine Genitalia Exam Genitalia:: deferred *Routine Extremities Exam Extremities: Absent cyanosis, clubbing or edema *Routine Skin Exam Skin: Present warm; Absent rash *Routine Neurological Exam Neurological: Present alert and oriented X3 Assessment and Plan *Assessment and plan (1) Infection due to vancomycin resistant Enterococcus faecium: Status: Acute Category: Medical Code(s): A49.8 - Other bacterial infections of unspecified site; Z16.21 - Resistance to vancomycin (2) Complicated urinary tract infection: Status: Acute Category: Medical Code(s): N39.0 - Urinary tract infection, site not specified (3) Morbid obesity: Status: Chronic Category: Medical Code(s): E66.01 - Morbid (severe) obesity due to excess calories (4) Type 2 diabetes mellitus without complications: Status: Chronic Category: Medical Code(s): E11.9 - Type 2 diabetes mellitus without complications Plan #Acute pyelonephritis secondary to staghorn calculi # Multidrug-resistant infection Seen by Eamon ARVIZU with recent positive despite 1 week of amoxicillin treatment. Culture notable for VRE and Staph saprophyticus with oxacillin resistance. Will continue ertapenem Accepted to [facility] with Dr. Olvera. Awaiting bed assignment Continue IV pain medication as well as Toradol for pain #Status post parathyroidectomy Status post 2 weeks. Calcium levels within normal range at this time Continue daily replacement per patient. Had subsequent significant drop in calcium post thyroidectomy #Morbid obesity complicates all aspects of care #Chronic diastolic heart failure Not in exacerbation at this time. Denies any worsening edema or shortness of breath. Continue daily Bumex #DM2 Mounjaro on hold at this time. Hold oral antidiabetics. Continue sliding #COPD: Not in exacerbation at this time, continue bronchodilators.
--- NOTE | 2025-03-12 06:00 | PC.NURSE ---
patient is sleeping peacefully in her room. is at bedside. Call light within reach. Will continue to monitor.
[2025-03-12 07:00] LABS: Anion Gap 10.6 mEq/L (5-15); Blood Urea Nitrogen 17 mg/dl (7-17); Calcium 8.1 mg/dl (8.4-10.2); Carbon Dioxide 27 mmol/L (22.0-30.0); Chloride 100 mmol/L (98-107); Creatinine Clearance Estimated 69 mL/min (50-200); Estimated Glomerular Filt Rate 76 ml/min (>60); GFR (African American) 92 ML/MIN (>60); Glucose 149 mg/dl (74-100); Phosphorous 3.5 mg/dl (2.5-4.5); Potassium 3.6 mmoL/L (3.5-5.1); Sodium 134 mmol/L (136-145)
[2025-03-12 07:26] LABS: Basophils # 0.1 K/mm3 (0-0.2); Basophils % 0.6 % (0.1-2.0); Eosinophils # 0.2 Kmm3 (0.0-0.4); Eosinophils % 1.8 % (0.1-12.0); Hematocrit 41.8 % (37.0-47.0); Immature Granulocytes # 0.05 10^3uL; Immature Granulocytes % 0.4 %; Lymphocytes # 2.8 K/mm3 (0.7-4.5); Lymphocytes % 22.5 % (10-50); Mean Corpuscular Hemoglobin 28.8 pg (27.0-31.2); Mean Corpuscular Volume 87.1 fl (81-99); Mean Platelet Volume 10.3 fl (7.4-10.4); Monocytes % 7.7 % (1.7-9.3); Neutrophils # 8.3 K/mm3 (1.8-7.8); Nucleated Red Blood Cells # 0 10^3/uL; Nucleated Red Blood Cells % 0 %; Platelet Count 268 K/mm3 (142-424); Red Cell Distribution Width 13.9 % (11.5-17.5); Red Cell Distribution Width-SD 44.9 fL; White Blood Count 12.4 K/mm3 (4.8-10.8)
[2025-03-12 07:29] LABS: Hemoglobin 13.8 g/dL (12.2-16.2)
[2025-03-12] MEDS: humaLOG 100 UNITS/ML 10ML VIAL (SSI) SUBCUT ×3 (08:49→16:42)
[2025-03-12] MEDS: LORATADINE 10MG TABLET 10 MG PO (08:50)
[2025-03-12] MEDS: BUMETANIDE 1 MG TABLET 2 MG PO ×2 (08:50→16:42)
[2025-03-12] MEDS: CARVEDILOL 6.25MG TABLET 6.25 MG PO ×2 (08:50→20:53)
[2025-03-12] MEDS: HYDROMORPHONE 2MG/ML SYRINGE 0.5 MG IV ×2 (08:54→13:04)
--- NOTE | 2025-03-12 09:33 | PC.NURSE ---
Albin Ann currently on phone with per Dr Kim for pt transfer for septic left staghorn calculus
--- NOTE | 2025-03-12 09:34 | PC.NURSE ---
Dr Wallace is talking to Dr Kim at this time
--- NOTE | 2025-03-12 09:38 | PC.NURSE ---
Dr Wallace will call Dr Kim back once he looks at images.
--- NOTE | 2025-03-12 11:50 | PC.NURSE ---
Report called to [facility] Oleary.
--- NOTE | 2025-03-12 11:50 | PC.NURSE ---
CALLED BACK PER DR MCKEON TO CHECK WITH THEM TO SEE IF THEY HAD READ THE IMAGES THAT WERE POWERSHARED. HAS ME ON HOLD WHILE THEY ARE CHECKING
[2025-03-12] MEDS: KETOROLAC 30MG/ML VIAL 15 MG IV ×2 (11:59→20:54)
--- NOTE | 2025-03-12 12:06 | PC.NURSE ---
arrived by w/c from ED
[2025-03-12 13:32] LABS: POC Glucose,Bedside 187 (70-110)
[2025-03-12] MEDS: OXYCODONE 5MG IMMEDIATE RELEASE TABLET 5 MG PO (16:41)
[2025-03-12] MEDS: SENNOSIDES 8.6MG/DOCUSATE 50MG TABLET 1 TAB PO (16:41)
[2025-03-12] MEDS: CALCIUM CARBONATE 500MG CHEWTAB 2000 MG PO ×2 (16:58→20:53)
[2025-03-12 18:15] LABS: POC Glucose,Bedside 159 (70-110)
[2025-03-12 20:00] LABS: POC Glucose,Bedside 152 (70-110)
[2025-03-12] MEDS: METFORMIN 500MG TABLET 500 MG PO (20:53)
[2025-03-12] MEDS: MONTELUKAST SODIUM 10MG TAB 10 MG PO (20:58)
[2025-03-13] VITALS (7 sets, daily range): BP systolic 105–135; BP diastolic 48–80; PULSE 56–89; RESP 14–19; TEMP 36.6–36.9; O2SAT 91–97; BMI 49.8
[2025-03-13] MEDS: ERTAPENEM SODIUM 1 GM in 0.9 % SODIUM CHLORIDE 50 ML IV (05:47)
[2025-03-13] MEDS: KETOROLAC 30MG/ML VIAL 15 MG IV ×2 (06:00→19:31)
[2025-03-13 06:08] LABS: POC Glucose,Bedside 143 (70-110)
[2025-03-13 07:01] LABS: Basophils # 0.1 K/mm3 (0-0.2); Basophils % 0.7 % (0.1-2.0); Eosinophils # 0.3 Kmm3 (0.0-0.4); Eosinophils % 2.5 % (0.1-12.0); Hematocrit 46.2 % (37.0-47.0); Hemoglobin 14.8 g/dL (12.2-16.2); Immature Granulocytes # 0.03 10^3uL; Immature Granulocytes % 0.3 %; Lymphocytes # 2.3 K/mm3 (0.7-4.5); Lymphocytes % 21.9 % (10-50); Mean Corpuscular Volume 87.5 fl (81-99); Mean Platelet Volume 9.9 fl (7.4-10.4); Monocytes # 0.7 K/mm3 (0.1-1.0); Monocytes % 6.8 % (1.7-9.3); Neutrophils # 7.1 K/mm3 (1.8-7.8); Neutrophils % 67.8 % (37.0-80.0); Nucleated Red Blood Cells # 0 10^3/uL; Nucleated Red Blood Cells % 0 %; Platelet Count 285 K/mm3 (142-424); Red Blood Count 5.28 M/mm3 (4.20-5.40); Red Cell Distribution Width 13.9 % (11.5-17.5); Red Cell Distribution Width-SD 44.5 fL; White Blood Count 10.5 K/mm3 (4.8-10.8)
[2025-03-13 07:14] LABS: Alanine Aminotransferase 70 U/L (12-78); Albumin Level 4.2 g/dl (3.5-5.0); Albumin/Globulin Ratio 1.4 (1.1-1.8); Alkaline Phosphatase 103 U/L (38-126); Anion Gap 10.7 mEq/L (5-15); Aspartate Amino Transferase 49 U/L (14-36); Bilirubin,Total 0.8 mg/dl (0.2-1.3); Blood Urea Nitrogen 18 mg/dl (7-17); Calcium 9.6 mg/dl (8.4-10.2); Carbon Dioxide 33 mmol/L (22.0-30.0); Chloride 96 mmol/L (98-107); Creatinine Clearance Estimated 66 mL/min (50-200); Estimated Glomerular Filt Rate 76 ml/min (>60); GFR (African American) 92 ML/MIN (>60); Globulin 3.1 g/dL (1.3-3.2); Glucose 153 mg/dl (74-100); Magnesium 2.2 mg/dl (1.6-2.3); Potassium 3.7 mmoL/L (3.5-5.1); Sodium 136 mmol/L (136-145); Total Protein,Serum 7.3 g/dl (6.3-8.2)
[2025-03-13] MEDS: CALCIUM CARBONATE 500MG CHEWTAB 2000 MG PO ×4 (08:33→21:36)
[2025-03-13] MEDS: ONDANSETRON 4MG/2ML VIAL 4 MG IV ×2 (08:35→16:58)
[2025-03-13] MEDS: CHOLECALCIFEROL 1,000 UNITS (25MCG) TABLET 125 MCG PO (08:35)
[2025-03-13] MEDS: LORATADINE 10MG TABLET 10 MG PO (08:37)
[2025-03-13] MEDS: BUMETANIDE 1 MG TABLET 2 MG PO ×2 (08:38→16:37)
[2025-03-13] MEDS: METFORMIN 500MG TABLET 500 MG PO ×2 (08:38→21:37)
[2025-03-13] MEDS: CARVEDILOL 6.25MG TABLET 6.25 MG PO (08:38)
[2025-03-13] MEDS: OXYCODONE 5MG IMMEDIATE RELEASE TABLET 5 MG PO ×2 (08:54→16:37)
[2025-03-13] MEDS: SENNA 8.6MG TABLET 8.6 MG PO (08:56)
[2025-03-13] MEDS: FLUTICASONE/UMECLIDIN/VILANTER 100/62.5/25MCG INHALER 1 PUFF IH (09:11)
[2025-03-13] MEDS: humaLOG 100 UNITS/ML 10ML VIAL (SSI) SUBCUT ×2 (10:34→21:37)
[2025-03-13 10:40] LABS: POC Glucose,Bedside 214 (70-110)
[2025-03-13] MEDS: MAGNESIUM CITRATE 10OZ BOTTLE 10 OZ PO (11:13)
--- NOTE | 2025-03-13 13:30 | P.PN_ITS ---
Subjective *Date: 03/13/25 *Time: 13:30 Interval history: Feeling better today. Complaining of not having had a bowel movement however and feeling constipated. Afebrile overnight. No nausea or vomiting. Medical Exam Vital signs and Labs for Last 24 Hours: Vital Signs Temp Pulse Resp BP Pulse Ox O2 Del Method O2 Flow Rate 03/13/25 13:24 Room Air 03/13/25 12:00 98.0 F 79 14 132/80 95 Room Air 03/13/25 11:56 Room Air 03/13/25 09:12 94 L Room Air 03/13/25 09:00 Room Air 03/13/25 08:00 Room Air 03/13/25 08:00 98 F 89 18 110/48 L 96 03/13/25 06:32 Room Air 03/13/25 05:00 Room Air 03/13/25 04:00 98.4 F 56 L 15 121/75 97 Nasal Cannula 2 03/13/25 03:00 Room Air 03/13/25 01:00 Room Air 03/13/25 00:00 98.3 F 75 18 105/66 L 93 L Nasal Cannula 03/12/25 23:00 Room Air 03/12/25 21:00 Room Air 03/12/25 20:00 Room Air 03/12/25 19:58 98.4 F 64 15 114/69 93 L Room Air 03/12/25 18:34 Room Air 03/12/25 17:00 Room Air 03/12/25 15:00 Nasal Cannula 2 Intake and Output 03/12/25 03/13/25 03/13/25 23:59 07:59 15:59 Intake Total 240 / 840 240 / 480 240 / 480 Output Total 0 / 0 0 / 0 0 / 0 Balance 240 / 840 240 / 480 240 / 480 Intake: Intake, Oral Amount 240 / 840 240 / 480 240 / 480 Output: Output, Urine Amount 0 / 0 0 / 0 0 / 0 Other: Number of Unmeasured Voids 1 1 0 Weight 127.596 kg Patient Weight 03/13/25 23:59 Weight 127.596 kg Laboratory Results - last 24 hr 03/12/25 01:37: Urine Color Yellow, Urine Appearance Cloudy, Urine pH 6.0, Ur Specific [place] 1.010, Urine Protein Trace, Urine Glucose (UA) 3+, Urine Ketones Negative, Urine Blood 3+ A, Urine Nitrate Negative, Urine Bilirubin Negative, Urine Urobilinogen 0.2, Ur Leukocyte Esterase 1+ A, Urine RBC Tntc, Urine WBC Tntc 03/12/25 12:51: POC Glucose 187 H 03/12/25 16:22: POC Glucose 159 H 03/12/25 19:49: POC Glucose 152 H 03/13/25 05:48: POC Glucose 143 H 03/13/25 06:40: WBC 10.5, RBC 5.28, Hgb 14.8, Hct 46.2, MCV 87.5, MCH 28.0, MCHC 32.0, RDW 13.9, Plt Count 285, MPV 9.9, Neut % (Auto) 67.8, Lymph % (Auto) 21.9, [place] % (Auto) 6.8, Eos % (Auto) 2.5, Baso % (Auto) 0.7, Neut # (Auto) 7.1, Lymph # (Auto) 2.3, [place] # (Auto) 0.7, Eos # (Auto) 0.3, Baso # (Auto) 0.1, Sodium 136, Potassium 3.7, Chloride 96 L, Carbon Dioxide 33 H, Anion Gap 10.7, BUN 18 H , Creatinine 0.80, Estimated Creat Clear 66, Estimated GFR 76, Est GFR ( Amer) 92, Glucose 153 H, Calcium 9.6, Magnesium 2.2 D, Total Bilirubin 0.8, AST 49 H, ALT 70 D, Alkaline Phosphatase 103, Total Protein 7.3, Albumin 4.2, Globulin 3.1, Albumin/Globulin Ratio 1.4 03/13/25 10:24: POC Glucose 214 H I & O for Labs for Last 24 Hours: Intake & Output 03/10/25 03/11/25 03/12/25 03/13/25 23:59 23:59 23:59 23:59 Intake Total 600 / 840 480 / 480 Output Total 0 / 0 0 / 0 Balance 600 / 840 480 / 480 Weight 127.006 kg 127.261 kg 127.596 kg Microbiology Reports for the Last 24 Hours: Microbiology 03/12/25 01:37 Urine,Clean Catch Urine Culture - Preliminary Gram Negative Rods Constitutional: Present mild distress, morbidly obese, chronically ill appearing and cooperative Head: Present atraumatic and normocephalic ENT: Present normal exam Respiratory: Present normal respiratory effort; Absent rhonchi, wheezes or crackles Cardiac: Present Reg Rate and Rhythm GI: Present soft and normal bowel sounds; Absent distention or tenderness Comments:: Left-sided CVA tenderness to percussion Extremities: Present normal inspection and full ROM; Absent tenderness Skin: Present intact; Absent erythema Neuro: Present Grossly Intact, alert, awake, oriented x 3 and moves all extremities Additional Findings:: Left-sided CVA tenderness to percussion Assessment and Plan *Assessment and plan (1) Infection due to vancomycin resistant Enterococcus faecium: Status: Acute Category: Medical Code(s): A49.8 - Other bacterial infections of unspecified site; Z16.21 - Resistance to vancomycin (2) Complicated urinary tract infection: Status: Acute Category: Medical Code(s): N39.0 - Urinary tract infection, site not specified (3) Morbid obesity: Status: Chronic Category: Medical Code(s): E66.01 - Morbid (severe) obesity due to excess calories (4) Type 2 diabetes mellitus without complications: Status: Chronic Category: Medical Code(s): E11.9 - Type 2 diabetes mellitus without complications Plan 49-year-old female with known staghorn calculi in left kidney, presented with s uspicion of UTI secondary to MDRO. Urine culture growing gram-negative rods. Previous culture sensitive to ertapenem. Continues to require inpatient management pending plan with antibiotics. Will plan for close follow-up with urology as an outpatient for further management of kidney stone. Problems addressed as follows: #Acute pyelonephritis secondary to staghorn calculi # Multidrug-resistant infection Current urine culture growing gram-negative rods. Previous culture at outside facility notable for VRE and Staph saprophyticus with oxacillin resistance. Continue ertapenem 1 g daily IV After initially being accepted for transfer, further discussion with tertiary center elicits the patient would not be a candidate for inpatient procedure therefore there she will not transfer for further management. - Needs close outpatient follow-up. -Continue oral oxycodone 5 mg as needed every 8 hours along with IV Toradol for pain monitor for toxicity, #Status post parathyroidectomy Status post 2 weeks. Calcium levels 9.7 this morning. Within normal range. Continue cholecalciferol 5000 units every 2 days and calcium carbonate 2000 mg 4 times a day. Repeat CBC, CMP, magnesium ordered for the morning. Monitoring calcium level daily #Morbid obesity: complicates all aspects of care #Chronic diastolic heart failure: Not in exacerbation at this time. Denies any worsening edema or shortness of breath. Continue daily Bumex #DM2 Fadi on hold at this time. Hold oral antidiabetics. Continue sliding scale insulin with fingersticks ACHS #COPD: Not in exacerbation at this time, continue bronchodilators. Full code Diabetic diet
--- OUTSIDE RECORDS SUMMARY | 2025-03-13 13:48 | XMS_ITS | Continuity of Care Document ---
Author Organization [facility] Infectious Disease -[address] [place] [address] Care Team Providers Care Motion Picture Projectionist Apprentice Name Role Phone SHERI BENAVIDESGHT Primary Care Provider Assessment No assessment recorded. Plan of Treatment Reminders Order Date Submit Date Provider Last Modified By Organization Details Last Modified Time Details Appointments Establish ed Visit 15 min 2024 01:45P M Marilou nation APRN Not available Not available Not available Lab urinalysi s, dipstick [address] Infectious Disease -105, [address], [place], [address], 02/23/2025 14:18:52 CBC w/ diff 2024 025 [facility] (Registration ), [address] , [place], [address], 02/23/2025 16:11:55 CMP, serum or plasma 2024 025 [facility] (Registration ), [address] , [place], [address], 02/23/2025 15:39:03 ESR (erythroc yte sedimenta tion rate), blood [address] (Registration ), [address] , [place], [address], 03/09/2025 08:54:47 C-reactiv e protein, quantitat estefania, serum or plasma 2024 025 [email or web address] [facility] (Registration ), [address], [place], [address], 03/09/2025 08:54:48 culture, urine 2024 025 [facility], [address], [address], [place], [address], 02/27/2025 19:09:52 Referral None recorded. Procedures None recorded. Surgeries None recorded. Imaging None recorded. Medication Orders None recorded. Patient TargetsNo targets recorded. Patient InstructionsNo instructions recorded. Reason for Referral None Reported. Results Created Date Observation Date Name Description Value Unit Range Abnormal Flag Note LastModifiedBy Organization Detail LastModifiedTime 02/24/2002/23/2025 urina lysis , dipst ick Leukocytes (reference range) trace Not Available [facility] Infectious Disease -105 [address] [facility] [address], [place], [address], 02/23/2025 14:16:48 02/24/20 25 02/23/2025 urina lysis , dipst ick Nitrite (reference range:) negati ve Not Available [facility] Infectious Disease [facility] [address] [facility] [address], [place], [address], 02/23/2025 14:16:48 02/24/20 25 02/23/2025 urina lysis , dipst ick Urobilinogen (reference range) 0.2 Not Available [facility] Infectious [facility] [address] [facility] [address], [place], [address], 02/23/2025 14:16:48 02/24/20 25 02/23/2025 urina lysis , dipst ick Protein (reference range) negati ve Not Available [facility] Infectious Disease -[facility] [address] [facility] [address], [place], [address], 02/23/2025 14:16:48 02/24/20 25 02/23/2025 urina lysis , dipst ick pH (reference range 5-8.5) 6.0 Not Available [facility] Infectious [facility] [address], [place], [address], 02/23/2025 14:16:48 02/24/20 25 02/23/2025 urina lysis , dipst ick Blood (reference range:) small Not Available [place] [address] [address] [facility] [address], [place], [address], 02/23/2025 14:16:48 02/24/20 25 02/23/2025 urina lysis , dipst ick Specific [place] (reference range) 1.015 Not Available [place] [address] [address] [facility] [address], [place], [address], 02/23/2025 14:16:48 02/24/20 25 02/23/2025 urina lysis , dipst ick Ketone (reference range) negati ve Not Available [place] [address] [address] [facility] [address], [place], [address], 02/23/2025 14:16:48 02/24/20 25 02/23/2025 urina lysis , dipst ick Bilirubin (reference range) negati ve Not Available [place] [address] [address] [facility] [address], [place], [address], 02/23/2025 14:16:48 02/24/20 25 02/23/2025 urina lysis , dipst ick Glucose (reference range) 500 Not Available [place] [address] [address] [facility] [address], [place], [address], 02/23/2025 14:16:48 02/24/20 25 02/23/2025 urina lysis , dipst ick Color (reference range: yellow-brown ) Dark Yellow Not Available [facility] Infectious Disease -[address], [place], [address], 02/23/2025 14:16:48 Result Notes None recorded. Problems Name Problem SNOMED Code Status Onset Date Resolution Date Notes Provider Name and Address Organization Details Recorded Time Syncope 584155815 Active 2021 Malina Hernandez DO [address], [place], [address] , [place] - [facility] - [place] & [place] 15:33:04 Hypersomnia 44175101 Active 2021 Malina Hernandez DO [address], [place], [address] , [place] - [facility] - [place] & [place] 15:34:08 Problem Notes None recorded. Procedures Surgical History Date Name Laterality Status Provider Name and Address Organization Details Recorded Time 09/25/20 23 Cystoscopy-Female completed Silvio Valdez MD [address] [facility], [place], [address], [place] [facility] & [place] 09/25/2023 15:26:11 04/04/20 22 Date of Last Pap Smear completed Vandana Dalla [place] - [facility] - [place] & [place] 10/03/2022 14:31:43 10/28/19 22 Clinical Social Worker Surgery completed Vandana Dalla [place] [facility] & [place] 10/03/2022 14:45:45 10/28/19 17 Cholecystectomy completed Vandana Dalla [place] - [facility] & [place] 10/03/2022 14:32:27 10/28/19 14 Other completed Vandana Dalla [place] [facility] & [place] 10/03/2022 14:44:51 cardiac catheterization completed Vandana Dalla [place] - [facility] & [place] 10/03/2022 14:46:31 strabismus surgery completed Vandana Dalla [place] - [facility] & [place] 10/03/2022 14:55:15 Imaging Results None recorded. Procedure Notes None recorded. Medical Equipment None Reported. Allergies Allergen ID Allergen Name Allergen Category Reaction Reaction Severity Criticality Documentation Date Start Date Code Code System Note Provider Name and Address Organization Details Recorded Time 37175 aspirin medicatio n chest pain wheezing moderate severe Not available 10/02/2022 1191 RxNorm RAFITA Reed [facility] & [place] 2 09:22:42 84816 Bactrim medicatio n arthralgi a (joint pain) muscle cramps severe severe Not available 10/02/2022 55861 9 RxNorm RAFITA Reed [facility] & [place] 2 09:22:49 12069 insect venom environme nt confusion cough dizziness fever flushing headache wheezing moderate moderate moderate mild moderate moderate moderate Not available 10/02/2022 41780 UNK Vandana catherine, RAFITA DARLING [facility] & [place] 2 09:23:13 13241 Pneumococ georges vaccine Not available anaphylax is chest pain facial swelling nausea rash wheezing moderate moderate moderate moderate moderate moderate Not available 10/02/2022 80532 7 RxNorm RAFITA Reed [facility] & [place] 2 09:23:25 80089 rosuvasta tin medicatio n eye swelling facial swelling respirato ry distress moderate moderate moderate Not available 10/02/2022 10490 2 RxNorm Vandana catherine, RAFITA LISSET [facility] & [place] 2 09:23:35 Medications [...] % 80 /min 98.6 [degF] 49.6 kg/m2 172359. 86 g 116 mm[Hg] 100 mm[Hg] Bianca Smith [facility] & [place] 13:59:18 Social History Question Answer Notes LastModified by Organizat ion Details LastModified Time Tobacco Smoking Status Never Smoker Vandana catherine, [facility] & [place] 10/03/2022 14:32:09 Do You Have An Advance Directive? No Information not available 10/03/2022 Are You Blind Or Do You Have Difficulty Seeing? No Information not available 10/03/2022 What Was The Date Of Your Most Recent Tobacco Screening? 09/17/2022 Information not available 10/03/2022 Do You Have Any Pets? Yes [email or web address] Information not available 09/25/2023 Are You Passively Exposed To Smoke? No Information not available 10/03/2022 Are You Currently In School? No MASTERS [email or web address] Information not available 09/25/2023 Sex: Female Functional [...] anxious, or unable to sleep at night)? [id number] Information not available 10/03/2022 Family History Relationship [...] SNOMED-CT Code Diagnosis ICD10 Code Diagnosis Note [id number] Marilou Herbert in, CLEAN IN PLACES OPERATOR [facility] Infectiou s Disease -105 [address] [facility] [address] [place] [address] 02/23/2025 13:48:33 02/23/2025 14:17:11 Recurrent urinary tract infection 400207754 N39.0 Will check lab work. Will send [...] Member ID Guarantor Name 02/23/2025 1 [employer]ETNA [facility] (MEDICAID HMO) [facility] [id number] [facility] Notes Date Note Type Note Provider Name [...] with urology in April 2025. Marilou David, CLEAN IN PLACES OPERATOR [address], [place], [address], [facility] - [place] - [place] & [place] 02/24/2025 10:59:38 OBGyn Episode No OBEpisode recorded.
--- OUTSIDE RECORDS SUMMARY | 2025-03-13 13:48 | XMS_ITS | Data Portability ---
Author Organization [facility] Mahamed lomeli, [facility] Address [address] [place] [address] Assessment No assessment recorded. Plan of Treatment Reminders Order Date Submit Date Provider Last Modified By Organization Details Last Modified Time Details Appointments None recorded. Lab None recorded. Referral aquatic therapy referral 2017 018 [email or web address] 2 Not available 8 11:14:18 cognitive behavioral therapy referral 2017 018 [email or web address] 2 [facility] [address] [facility], [address], [place], [address], 8 11:14:19 occupationa l therapist referral 2017 018 [email or web address] 2 Not available 8 11:14:17 Procedures None recorded. Surgeries None recorded. Imaging None recorded. Medication Orders None recorded. Patient TargetsNo targets recorded. Patient Instructions Encounter Date Encounter Id Patient Instructions Last Modified By Organization Details Last Modified Time 08/13/2018 [id number] learning about healthy weight Not available 08/13/2018 [...] Name and Address Organization Details Recorded Time 757319 aspirin medicatio n Not available Not available Not available 08/13/2018 1191 RxNorm Melinda Hudson [facility] 8 10:01:54 Medications Name Sig Start [...] Address Organization Details Last Updated DateTime 8 256599. 12 g 48.2 kg/m2 160.02 cm 18 /min 61 /min 132 mm[Hg] 96 mm[Hg] Melinda Hudson [facility] 8 10:06:40 Social History Question Answer Notes LastModified by Organizat ion Details LastModified Time Tobacco Smoking Status Never Smoker Melinda Hudson [facility] 08/13/2018 10:02:03 What Was The Date Of Your Most Recent Tobacco Screening? 08/13/2018 Information n ot available 12/15/2019 Sex: Unknown Functional Status None recorded. Mental Status None recorded. Family History Relationship Description Onset Age of this Age Resolved Age Notes LastModified by Organization Details LastModified Time Father No current problems or disability [email or web address] Not available 08/13 10:02:01 Mother No current problems or disability [email or web address] Not available 08/13 10:02:01 Medical History Condition [...] SNOMED-CT Code Diagnosis ICD10 Code Diagnosis Note [id number] CLIFF BARBER MD RHEUMATOL OGY [address] [place] [address] 08/13/2018 09:13:44 08/13/2018 10:48:47 Pain of multiple joints 64743142 M25.50 she has clinical features of Dixon OA. no features of an inflammato ry arthritis noted. no features of rheumatoid noted. 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 would suggest to avoid steroids and start OT as stated below. she can RTC with me as prn. 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 Health Concerns Section Related Observation LastModified by Organization Detai ls LastModified Time None Recorded Concern Status LastModified by Organization Details LastModified Time None Recorded Advance Directives Directive None Recorded Payers Insurance Date Sequence Insurance Name Policy Number Policy Valdivia Covered Member ID Valdivia Member ID Guarantor Name 02/03/2024 1 [id number] 01/24/2024 1 [place] [place] FFS/TRADITIO NAL Lissy [facility] [id number] Lissy [facility] 02/04/2024 1 [facility] [id number] Lissy [facility] 01/31/2024 1 [place] [id number] Lissy [facility] [id number] Lissy [facility] Notes Date Note Type Note Provider [...] and a normal TSH. CLIFF BARBER MD [facility], [place], [address], [facility] 08/13/2018 17:00:47 OBGyn Episode No OBEpisode recorded.
--- OUTSIDE RECORDS SUMMARY | 2025-03-13 13:48 | XMS_ITS | Continuity of Care Document ---
Author Organization [facility] Infectious Disease -105 Address [address] [place] [address] Care Team Providers Care Quantitative Developer Name Role Phone ZAHRAA BENAVIDES Primary Care [...] and Address Organization Details Recorded Time Syncope 142194802 Active 2021 Malina Hernandez DO [address], [place], [address] , [facility] & [place] 2 15:33:04 Hypersomnia 89475167 Active 2021 Malina Hernandez DO [address], [place], [address] , [facility] & [place] 2 15:34:08 Problem Notes None recorded. Procedures Surgical History Date Name Laterality Status Provider Name and Address Organization Details Recorded Time 09/25/20 23 Cystoscopy-Female completed Silvio Valdez MD [address], [place], [address], [facility] & [place] 09/25/2023 15:26:11 04/04/20 22 Date of Last Pap Smear completed Vandana ELLER - [facility] - [place] & [place] 10/03/2022 14:31:43 10/28/19 22 Head Sulfide Operator Surgery completed Vandana ELLER - [facility] & [place] 10/03/2022 14:45:45 10/28/19 17 Cholecystectomy completed Vandana Beckera RAFITA - [facility] - [place] & [place] 10/03/2022 14:32:27 10/28/19 14 Other completed Vandana Beckera RAFITA - [facility] - [place] & [place] 10/03/2022 14:44:51 cardiac catheterization completed Vandana ELLER - [facility] - [place] & [place] 10/03/2022 14:46:31 strabismus surgery completed Vandana ELLER - [facility] & [place] 10/03/2022 14:55:15 Imaging Results None recorded. Procedure Notes None recorded. Medical Equipment None Reported. Allergies Allergen ID Allergen Name Allergen Category Reaction Reaction Severity Criticality Documentation Date Start Date Code Code System Note Provider Name and Address Organization Details Recorded Time 93393 aspirin medicatio n chest pain wheezing moderate severe Not available 10/02/2022 1191 RxNorm Vandana catherine, RAFITA - [facility] & [place] 2 09:22:42 69101 Bactrim medicatio n arthralgi a (joint pain) muscle cramps severe severe Not available 10/02/2022 17029 9 RxNorm Vandana Harris null, RAFITA - [facility] & [place] 2 09:22:49 16486 insect venom environme nt confusion cough dizziness fever flushing headache wheezing moderate moderate moderate mild moderate moderate moderate Not available 10/02/2022 56568 UNK Vandana Harris null, [place] - [facility] & [place] 2 09:23:13 62818 Pneumococ georges vaccine Not available anaphylax is chest pain facial swelling nausea rash wheezing moderate moderate moderate moderate moderate moderate Not available 10/02/2022 89441 7 RxNorm Vandana Eugenioa null, [place] - [facility] & [place] 2 09:23:25 35944 rosuvasta tin medicatio n eye swelling facial swelling respirato ry distress moderate moderate moderate Not available 10/02/2022 40778 2 RxNorm Vandana RAFITA [place] - [place] - [place] & [place] 2 09:23:35 Medications Name Sig Start Date [...] % 60 /min 97.7 [degF] 49.6 kg/m2 986924. 86 g 119 mm[Hg] 79 mm[Hg] Bianca Smith [facility] & [place] 5 13:31:54 Social History Question Answer Notes LastModified by [employer] Details LastModified Time Tobacco Smoking Status Never Smoker [facility] [place] 10/03/2022 14:32:09 Do You Have An Advance [...] Are You Currently In School? No MASTERS [email or web address] Information not available 09/25/2023 Sex: Female Functional Status Question Answer Note LastModified by Organizat ion Details LastModified Time Do you use any illicit or recreational drugs? No Information not available 10/03/2022 What is your level of alcohol consumption? 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 Occasional Information not available 10/03/2022 Mental Status Question Answer Note LastModified by Organization D etails LastModified Time Do you feel stressed (tense, restless, nervous, or anxious, or unable to sleep at night)? [id number] Information not available 10/03/2022 Family History Relationship [...] (CHF) Y Back Problems Y Asthma Y GI Problems Y Lung Disease Y [...] SNOMED-CT Code Diagnosis ICD10 Code Diagnosis Note [id number] [facility] [address] [facility] [address] [place] [address] 02/23/2025 13:48:33 02/23/2025 14:17:11 Recurrent urinary tract infection 591518008 N39.0 Will check lab work. Will send urine off for a culture. Will see patient back in 1 week. 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 Patient will follow up in 2 weeks. Call the office if anything persists or worsens. 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 Urine culture results received. Patient denies any fever. She is scheduled to have surgery to remove her stone on . Marilou David, RESEARCH STATISTICIAN [address], [place], [address], [place] [facility] [place] & [place] 03/02/2025 13:35:40 OBGyn Episode No OBEpisode recorded.
--- OUTSIDE RECORDS SUMMARY | 2025-03-13 13:48 | XMS_ITS | Data Portability ---
Author Organization [facility] [place] [facility] [place] [facility] [place] Alejandro ADMIN Address [address] [place] [id number] Care Team Providers Care Inspector [employer] Name Role Phone ZAHRAA BENAVIDES Primary Care Provider [phone] Assessment Encounter Date Assessment Date Assessment LastModified [...] in 6 months with KUB and UA. [email or web address] Not available 09/25/2023 15:29:09 Plan of Treatment Reminders Order Date Submit Date Provider Last Modified By Organization Details Last Modified Time Details Appointments Establish ed Visit 15 min 2024 01:45P M Marilou nation APRN Not available Not available Not available Lab urinalysi s, dipstick [address] Infect[facility] -105, [address], [place], [address], 02/23/2025 14:18:52 CBC w/ diff 2024 025 [facility] (Registration ), [address] [facility], [place], [address], 02/23/2025 16:11:55 CMP, serum or plasma 2024 025 [facility] (Registration ), [address] [facility], [place], [address], 02/23/2025 15:39:03 ESR (erythroc yte sedimenta tion rate), blood [address] (Registration ), [address] [facility], [place], [address], 03/09/2025 08:54:47 C-reactiv e protein, quantitat estefania, serum or plasma [address] (Registration ), [address] [facility], [place], [address], 03/09/2025 08:54:48 culture, urine 2024 025 [facility], [address], [address], [place], [address], 02/27/2025 19:09:52 urinalysi s, dipstick 2022 023 [email or web address] [facility], [address] [facility], [address], [place], [address], 08/07/2023 16:08:29 Referral None recorded. Procedures None [...] usal 7.7 - 58.5 Perfo rmed at: [address] [id number] Lab Direc tor: Los carson PhD, Phone : [phone] Not Available [facility] ([facility]) [address] [place], [address], 04/03/2023 10:13:10 04/02/20 23 04/03/2023 FSH FSH, serum 5.4 mIU/m L Adult Femal e: Folli cular phase 3.5 - 12.5 Ovula tion phase 4.7 - 21.5 Lutea l phase 1.7 - 7.7 Postm enopa usal 25.8 - 134.8 Perfo rmed at: [address] [id number] Lab Direc tor: Los carson PhD, Phone : [phone] Not Available [facility] ([facility]) [address] [place], [address], 04/03/2023 10:14:16 08/07/20 23 08/07/2023 urina lysis , dipst ick Leukocytes (reference range) trace Not Available [facility] [address] [place] [address], [address], 08/07/2023 15:15:15 08/07/20 23 08/07/2023 urina lysis , dipst ick Nitrite (reference range:) negati ve Not Available [facility] [address] [place] [address], [address], 08/07/2023 15:15:15 08/07/2008/07/2023 urina lysis , dipst ick Urobilinogen (reference range) 0.2 Not Available [facility], [place] [address] [place] [address] [address], [place], [address], 08/07/2023 15:15:15 08/07/2008/07/2023 urina lysis , dipst ick Protein (reference range) negati ve Not Available [facility] [address] [place] [address] [address], [place], [address], 08/07/2023 15:15:15 08/07/2008/07/2023 urina lysis , dipst ick pH (reference range 5-8.5) 6.0 Not Available [facility] [address] [place] [address] [address], [place], [address], 08/07/2023 15:15:15 08/07/2008/07/2023 urina lysis , dipst ick Blood (reference range:) small Not Available [facility] [address] [place] [address] [address], [place], [address], 08/07/2023 15:15:15 08/07/2008/07/2023 urina lysis , dipst ick Specific Winton (reference range) 1.015 Not Available [facility], [place] [address] [place] [address] [address], [place], [address], 08/07/2023 15:15:15 08/07/2008/07/2023 urina lysis , dipst ick Ketone (reference range) negati ve Not Available [facility] [address] [place] [address] [address], [place], [address], 08/07/2023 15:15:15 08/07/2008/07/2023 urina lysis , dipst ick Bilirubin (reference range) negati ve Not Available [facility] [address], [place], [address], 08/07/2023 15:15:15 08/07/2008/07/2023 urina lysis , dipst ick Glucose (reference range) 250 Not Available [facility] [address] [facility] [address], [place], [address], 08/07/2023 15:15:15 08/07/2008/07/2023 urina lysis , dipst ick Color (reference range: yellow-brown ) Yellow Not Available [facility] [address] [facility] [address], [place], [address], 08/07/2023 15:15:15 02/24/20 25 02/23/2025 CBC AUTO W DIFF WBC 11.3 K/uL 4.0-10 .5 high Not Available [facility] ([facility]) [address] [facility], [place], [address], 02/23/2025 15:02:28 02/24/20 25 02/23/2025 CBC AUTO W DIFF RBC 5.7 M/mm3 4.2-6. 4 Not Available [facility] ([facility]) [address] [facility], [place], [address], 02/23/2025 15:02:28 02/24/20 25 02/23/2025 CBC AUTO W DIFF HGB 15.8 gm/dL 12.5-1 6.0 Not Available [facility] ([facility]) [address] [place], [address], 02/23/2025 15:02:28 02/24/20 25 02/23/2025 CBC AUTO W DIFF HCT 48.8 % 37.0-4 7.0 high Not Available [facility] ([facility]) [address] [place], [address], 02/23/2025 15:02:28 02/24/20 25 02/23/2025 CBC AUTO W DIFF MCV 86.4 fL 78-100 Not Available [facility] ([facility]) [address] , [place], [address], 02/23/2025 15:02:28 02/24/20 25 02/23/2025 CBC AUTO W DIFF MCH 28.0 pg 27-31 Not Available [facility] ([facility]) [address] , [place], [address], 02/23/2025 15:02:28 02/24/20 25 02/23/2025 CBC AUTO W DIFF MCHC 32.4 g/dL 32-36 Not Available [facility] ([facility]) [address], [place], [address], 02/23/2025 15:02:28 02/24/20 25 02/23/2025 CBC AUTO W DIFF RDW 13.7 % 11.5-1 4.0 Not Available [facility] ([facility]) [address] , [place], [address], 02/23/2025 15:02:28 02/24/20 25 02/23/2025 CBC AUTO W DIFF platelet count 380 K/uL 150-45 0 Not Available [facility] ([facility]) [address] , [place], [address], 02/23/2025 15:02:28 02/24/20 25 02/23/2025 CBC AUTO W DIFF MPV 10.3 fL 6-9.5 high Not Available [facility] ([facility]) [address] , [place], [address], 02/23/2025 15:02:28 02/24/20 25 02/23/2025 CBC AUTO W DIFF neutrophil% 66.5 % 43-65 high Not Available [facility] ([facility]) [address] , [place], [address], 02/23/2025 15:02:28 02/24/20 25 02/23/2025 CBC AUTO W DIFF lymphocyte% 24.3 % 20.5-4 5.5 Not Available [facility] ([facility]) [address] , [place], [address], 02/23/2025 15:02:28 02/24/20 25 02/23/2025 CBC AUTO W DIFF monocyte% 6.0 % 5.5-11 .7 Not Available [facility] ([facility]) [address] , [place], [address], 02/23/2025 15:02:28 02/24/20 25 02/23/2025 CBC AUTO W DIFF eosinophil% 2.3 % 0.9-2. 9 Not Available [facility] ([facility]) [address] , [place], [address], 02/23/2025 15:02:28 02/24/20 25 02/23/2025 CBC AUTO W DIFF basophil% 0.6 % 0.2-1. 0 Not Available [facility] ([facility]) [address] , [place], [address], 02/23/2025 15:02:28 02/24/20 25 02/23/2025 CBC AUTO W DIFF immature granulocytes % 0.3 % 0.0-0. 8 Not Available [facility] ([facility]) [address] , [place], [address], 02/23/2025 15:02:28 02/24/20 25 02/23/2025 CBC AUTO W DIFF nucleated red blood cells % 0.0 % Not Available [facility] ([facility]) [address] , [place], [address], 02/23/2025 15:02:28 02/24/20 25 02/23/2025 CBC AUTO W DIFF neutrophil# 7.5 K/uL 2.2-4. 8 high Not Available [facility] ([facility]) [address] [facility], [place], [address], 02/23/2025 15:02:28 02/24/20 25 02/23/2025 CBC AUTO W DIFF lymphocyte# 2.7 cell/ mcL 1.3-2. 9 Not Available [facility] ([facility]) [address] [facility], [place], [address], 02/23/2025 15:02:28 02/24/20 25 02/23/2025 CBC AUTO W DIFF monocyte# 0.7 cell/ mcL 0.3-0. 8 Not Available [facility] ([facility]) [address] [facility], [place], [address], 02/23/2025 15:02:28 02/24/20 25 02/23/2025 CBC AUTO W DIFF eosinophil# 0.3 cell/ mcL 0-0.2 high Not Available [facility] ([facility]) [address] [facility], [place], [address], 02/23/2025 15:02:28 02/24/20 25 02/23/2025 CBC AUTO W DIFF basophil# 0.1 cell/ mcL 0.0-1. 0 Not Available [facility] ([facility]) [address] [place], [address], 02/23/2025 15:02:28 02/24/20 25 02/23/2025 CBC AUTO W DIFF immature gramulocytes # 0.03 K/uL Not Available [facility] ([facility]) [address] [place], [address], 02/23/2025 15:02:28 02/24/20 25 02/23/2025 CBC AUTO W DIFF nucleated red blood cells # 0.00 K/uL Not Available [facility] ([facility]) [address] [place], [address], 02/23/2025 15:02:28 02/24/20 25 02/23/2025 CBC AUTO W DIFF manual differential NO Not Available [facility] ([facility]) [address] , [place], [address], 02/23/2025 15:02:28 02/24/20 25 02/23/2025 COMP METAB OLIC PANEL sodium 138 mmol/ L 136-14 5 Not Available [facility] ([facility]) [address] , [place], [address], 02/23/2025 15:39:03 02/24/20 25 02/23/2025 COMP METAB OLIC PANEL potassium 3.7 mmol/ L 3.6-5. 0 Not Available [facility] ([facility]) [address] , [place], [address], 02/23/2025 15:39:03 02/24/20 25 02/23/2025 COMP METAB OLIC PANEL chloride 98 mmol/ L 98-107 Not Available [facility] ([facility]) [address] , [place], [address], 02/23/2025 15:39:03 02/24/20 25 02/23/2025 COMP METAB OLIC PANEL carbon dioxide 26.8 mmol/ L 21.0-3 2.0 Not Available [facility] ([facility]) [address] , [place], [address], 02/23/2025 15:39:03 02/24/20 25 02/23/2025 COMP METAB OLIC PANEL anion gap 16.9 Not Available [facility] ([facility]) [address] , [place], [address], 02/23/2025 15:39:03 02/24/20 25 02/23/2025 COMP METAB OLIC PANEL glucose 200 mg/dL 70-120 high Not Available [facility] ([facility]) [address], [place], [address], 02/23/2025 15:39:03 02/24/20 25 02/23/2025 COMP METAB OLIC PANEL BUN 12 mg/dL 7-18 Not Available [facility] ([facility]) [address], [place], [address], 02/23/2025 15:39:03 02/24/20 25 02/23/2025 COMP METAB OLIC PANEL creatinine 1.1 mg/dL 0.6-1. 3 Not Available [facility] ([facility]) [address], [place], [address], 02/23/2025 15:39:03 02/24/20 25 02/23/2025 COMP METAB [...] brown ing kiney funct ion. Not Available [facility] ([facility]) [address] , [place], [address], 02/23/2025 15:39:03 02/24/20 25 02/23/2025 COMP METAB OLIC PANEL osmolality (calculated) 293 mOsm/ kg 275-30 1 OSMOL ALITY IS A CALCU LATIO N UTILI ZING THE SERUM /PLAS MA SODIU M, GLUCO SE AND UREA NITRO GEN (BUN) LEVEL S. FOR THE MOST ACCUR ATE RESUL T A MEASU RED SERUM OSMOL ALITY IS SUGGE STED. Not Available [facility] ([facility]) [address] , [place], [address], 02/23/2025 15:39:03 02/24/20 25 02/23/2025 COMP METAB OLIC PANEL total protein 8.1 g/dL 6.4-8. 2 Not Available [facility] ([facility]) [address] , [place], [address], 02/23/2025 15:39:03 02/24/20 25 02/23/2025 COMP METAB OLIC PANEL albumin 3.6 g/dL 3.4-5. 0 Not Available [facility] ([facility]) [address], [place], [address], 02/23/2025 15:39:03 02/24/20 25 02/23/2025 COMP METAB OLIC PANEL globulin 4.5 Not Available [facility] ([facility]) [address], [place], [address], 02/23/2025 15:39:03 02/24/20 25 02/23/2025 COMP METAB OLIC PANEL alb/glob ratio 0.8 0.7-2 Not Available [facility] ([facility]) [address] , [place], [address], 02/23/2025 15:39:03 02/24/20 25 02/23/2025 COMP METAB OLIC PANEL calcium 10.2 mg/dL 8.5-10 .5 Not Available [facility] ([facility]) [address] , [place], [address], 02/23/2025 15:39:03 02/24/20 25 02/23/2025 COMP METAB OLIC PANEL bilirubin total 0.60 mg/dL 0.10-1 .00 Not Available [facility] ([facility]) [address], [place], [address], 02/23/2025 15:39:03 02/24/20 25 02/23/2025 COMP METAB OLIC PANEL AST (SGOT) 46 U/L 0-37 high Not Available [facility] ([facility]) [address] , [place], [address], 02/23/2025 15:39:03 02/24/20 25 02/23/2025 COMP METAB OLIC PANEL ALT (SGPT) 78 U/L 0-65 high Not Available [facility] ([facility]) [address], [place], [address], 02/23/2025 15:39:03 02/24/20 25 02/23/2025 COMP METAB OLIC PANEL alk phosphatase 111 U/L 46-116 Not Available [facility] ([facility]) [address], [place], [address], 02/23/2025 15:39:03 02/24/20 25 02/23/2025 C-KARLI CTIVE PROTE IN (CRP) C-reactive protein, quant 2.0 mg/dL 0.05-0 .300 high Not Available [facility] ([facility]) [address], [place], [address], 02/23/2025 15:40:11 02/24/20 25 02/23/2025 SED RATE sed rate auto 9 0-20 Not Available [facility] ([facility]) [address], [place], [address], 02/23/2025 15:43:35 02/24/20 25 02/27/2025 URINE CULTU RE,CO MPREH ENSIV E urine culture,comp rehensive FINAL REPORT abnormal Not Available [facility] ([facility]) [address], [place], [address], 02/27/2025 19:09:52 02/24/20 25 02/27/2025 URINE CULTU [...] ng units per mL Not Available [facility] ([facility]) [address] [facility], [place], [address], 02/27/2025 19:09:52 02/24/20 25 02/27/2025 URINE CULTU [...] as Cefta rolin e Not Available [facility] ([facility]) [address] [facility], [place], [address], 02/27/2025 19:09:52 02/24/20 25 02/27/2025 URINE CULTU [...] Vanco mycin R S Not Available [facility] ([facility]) [address], [place], [address], 02/27/2025 19:09:52 02/24/2002/23/2025 urina lysis , dipst ick Leukocytes (reference range) trace Not Available [facility] [address] [facility] [address], [place], [address], 02/23/2025 14:16:48 02/24/20 25 02/23/2025 urina lysis , dipst ick Nitrite (reference range:) negati ve Not Available [place] [address] [address] [facility] [address], [place], [address], 02/23/2025 14:16:48 02/24/20 25 02/23/2025 urina lysis , dipst ick Urobilinogen (reference range) 0.[address] [facility] [address] [facility] [address], [place], [address], 02/23/2025 14:16:48 02/24/20 25 02/23/2025 urina lysis , dipst ick Protein (reference range) negati ve Not Available [facility] [address] [facility] [address], [place], [address], 02/23/2025 14:16:48 02/24/20 25 02/23/2025 urina lysis , dipst ick pH (reference range 5-8.5) 6.0 Not Available [facility] [address] [facility] [address], [place], [address], 02/23/2025 14:16:48 02/24/20 25 02/23/2025 urina lysis , dipst ick Blood (reference range:) small Not Available [facility] [address] [facility] [address], [place], [address], 02/23/2025 14:16:48 02/24/20 25 02/23/2025 urina lysis , dipst ick Specific [place] (reference range) 1.015 Not Available [place] [address] [address], [place], [address], 02/23/2025 14:16:48 02/24/20 25 02/23/2025 urina lysis , dipst ick Ketone (reference range) negati ve Not Available [place] [address] [address] [facility] [address], [place], [address], 02/23/2025 14:16:48 02/24/20 25 02/23/2025 urina lysis , dipst ick Bilirubin (reference range) negati ve Not Available [place] [address] [address] [facility] [address], [place], [address], 02/23/2025 14:16:48 02/24/20 25 02/23/2025 urina lysis , dipst ick Glucose (reference range) 500 Not Available [place] [address] [address] [facility] [address], [place], [address], 02/23/2025 14:16:48 02/24/20 25 02/23/2025 urina lysis , dipst ick Color (reference range: yellow-brown ) Dark Yellow Not Available [place] [address] [address] [facility] [address], [place], [address], 02/23/2025 14:16:48 Result Notes None recorded. Problems Name Problem SNOMED Code Status Onset Date Resolution Date Notes Provider Name and Address Organization Details Recorded Time Syncope 340563923 Active 2021 Malina Hernandez DO [address] [facility], [place], [address] , [place] [facility] & [place] 15:33:04 [facility] [id number] Active 2021 Malina Hernandez DO [address], [place], [address] , [place] [facility] [place] 15:34:08 Problem Notes None recorded. Procedures Surgical History Date Name Laterality Status Provider Name and Address Organization Details Recorded Time 09/25/20 23 Cystoscopy-Female completed Silvio Valdez MD [address], [place], [address], [place] [facility] [place] & [place] 09/25/2023 15:26:11 04/04/20 22 Date of Last Pap Smear completed Vandana Eugenioa [place] [facility] [place] & [place] 10/03/2022 14:31:43 10/28/19 22 Network Development Coordinator Surgery completed Vandana Dalla [place] [facility] & [place] 10/03/2022 14:45:45 10/28/19 17 Cholecystectomy completed Vandana Dalla [place] [facility] 10/03/2022 14:32:27 10/28/19 14 Other completed Vandana Dalla [place] [facility] 10/03/2022 14:44:51 cardiac catheterization completed Vandana Dalla [...] Name and Address Organization Details Recorded Time 94061 aspirin medicatio n chest pain wheezing moderate severe Not available 10/02/2022 1191 RxNorm Vandana Eugenioa null, [place] [facility] [place] & [place] 2 09:22:42 79938 Bactrim medicatio n arthralgi a (joint pain) muscle cramps severe severe Not available 10/02/2022 36192 9 RxNorm Vandana Eugenioa null, [place] [facility] [place] & [place] 2 09:22:49 75076 insect venom environme nt confusion cough dizziness fever flushing headache wheezing moderate moderate moderate mild moderate moderate moderate Not available 10/02/2022 98819 UNK Vandana catherine, [facility] DARLING [facility] & [place] 2 09:23:13 47302 Pneumococ georges vaccine Not available anaphylax is chest pain facial swelling nausea rash wheezing moderate moderate moderate moderate moderate moderate Not available 10/02/2022 60961 7 RxNorm [facility] Reed [facility] & [place] 2 09:23:25 71928 rosuvasta tin medicatio n eye swelling facial swelling respirato ry distress moderate moderate moderate Not available 10/02/2022 97153 2 RxNorm Vandana catherine, [facility] DARLING [facility] & [place] 2 09:23:35 Medications Name Sig Start Date [...] % 2 L/min 89 /min 48.3 kg/m2 027607. 39 g 128 mm[Hg] 98 mm[Hg] Phillip Morrison [place] [facility] & [place] 3 13:04:48 Date Recorded Body height Body mass index (BMI) Body weight Systolic blood pressure Diastolic blood pressure Provider Name and Address Organization Details Last Updated DateTime 08/07/2023 157.48 cm 49.4 kg/m2 596702.9 4 g 125 mm[Hg] 75 mm[Hg] Britney Yee [place] [facility] & [place] 3 15:05:24 Date Recorded Body height Body mass index (BMI) Body weight Systolic blood pressure Diastolic blood pressure Provider Name and Address Organization Details Last Updated DateTime 09/25/2023 157.48 cm 51.2 kg/m2 796040.8 6 g 126 mm[Hg] 76 mm[Hg] Ioana Ayala [facility] & [place] 3 15:07:04 Date Recorded Heart rate Body height Oxygen saturation Oxygen saturation in Arterial blood by Pulse oximetry Heart rate Body temperature Body mass index (BMI) Body weight Systolic blood pressure Diastolic blood pressure Provider Name and Address Organization Details Last Updated DateTime 5 80 /min 160.02 cm 96 % 96 % 80 /min 98.6 [degF] 49.6 kg/m2 171293. 86 g 116 mm[Hg] 100 mm[Hg] Bianca ELLER [facility] & [place] 5 13:59:18 Date Recorded Body height Heart rate Oxygen saturation Oxygen saturation in Arterial blood by Pulse oximetry Heart rate Body temperature Body mass index (BMI) Body weight Systolic blood pressure Diastolic blood pressure Provider Name and Address Organization Details Last Updated DateTime 5 160.02 cm 60 /min 97 % 97 % 60 /min 97.7 [degF] 49.6 kg/m2 403115. 86 g 119 mm[Hg] 79 mm[Hg] Bianca Smith [facility] & [place] 5 13:31:54 Social History Question Answer Notes LastModified by [email or web address] Urbano ion Details LastModified Time Tobacco Smoking Status [facility] [place] 10/03/2022 14:32:09 Do You Have An Advance Directive? No Information not available 10/03/2022 Are You Blind Or Do You Have Difficulty Seeing? No Information not available 10/03/2022 What Was The Date Of Your Most Recent Tobacco Screening? 09/17/2022 Information not available 10/03/2022 Do You Have Any Pets? 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 Occasional Information not available 10/03/2022 Mental Status Question Answer Note LastModified by Organization D etails LastModified Time Do you feel stressed (tense, restless, nervous, or anxious, or unable to sleep at night)? [id number] Information not available 10/03/2022 Family History Relationship [...] SNOMED-CT Code Diagnosis ICD10 Code Diagnosis Note [id number] DO SUZANNA Sanchez [facility] [address] [facility],[address] [facility] [address] 10/03/2022 14:07:23 10/03/2022 15:38:25 Syncope [id number] R55 She has been experienci ng these stereotypi georges passing out episodes for five years. No definite witnessed convulsion s but some associated brief confusion afterwards .will order EEG to rule out neurologic causes of syncope Hypersomnia [id number] G47 .10 She describes some significan t episodes of pathologic al sleepiness . She will fall asleep without warning in the middle of talking. This is very infrequent but can be suggestive of narcolepsy . Will order PSG with MSLT to evaluate this in more detail. [id number] Micheline Lackey MD [facility] General Surgery [address] [place] [address],[address] [place] [address] 04/02/2023 12:53:55 04/02/2023 13:53:12 Pelvic mass [id number] R19.00 Possible lymphocele versus ovarian remnant from [...] patient with lab levels and consider further CORPORATE REAL ESTATE SPECIALIST follow up. [id number] Silvio Valdez MD [facility] Urology [address] [place] [address],[address] [place] [address] 08/07/2023 14:35:57 08/07/2023 15:40:17 Recurrent urinary tract infection [id number] N39.0 Kidney stone [id number] N2 0.0 Chronic th oracic back pain [id number] 38377 M54.6 Microscopic hematuria 19 [id number] R31.29 [id number] Silvio Valdez MD [facility] Urology [address] [place] [address] [address] [place] [address] 09/25/2023 14:26:57 09/25/2023 15:25:02 Recurrent urinary tract infection [id number] N39.0 Kidney stone [id number] N2 0.0 Microscopic hematuria 19 [id number] R31.29 [id number] Marilou Maloney-[place] in, HOME HEALTH ADMINISTRATOR [facility] Infectiou s Disease -[address] [place] [address] 02/23/2025 13:48:33 02/23/2025 14:17:11 Recurrent urinary tract infection [id number] N39.0 Will check lab work. Will send urine off for a culture. Will see patient back in 1 week. 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 Patient will follow up in 2 weeks. Call the office if anything persists or worsens. 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 [id number] [facility] 02/27/2025 1 [facility] (MEDICAID HMO) [facility] [id number] [facility] Notes Date Note Type Note Provider [...] time. Patient states she is seen her retirement consultant for this, was told it is possibly a lymphocele. Micheline Lackey MD [address], [place], [address], [facility] - [place] - [place] & [place] 04/18/2023 12:50:43 08/07/2023 text/html Location: Histor y [...] hysterectomy. Silvio Valdez MD [address] [facility], [place], [address], [facility] [place] - [place] & [place] 08/07/2023 15:35:17 09/25/2023 text/html Patient returns to [...] hysterectomy. Silvio Valdez MD [address], [place], [address], [facility] & [place] 09/25/2023 15:30:10 02/23/2025 text/html patient presents to [...] 2025. Marilou David APRN [address], [place], [address], [facility] & [place] 02/24/2025 10:59:38 03/02/2025 text/html patient presents to clinic for follow up. Urine culture results received. Patient denies any fever. She is scheduled to have surgery to remove her stone on . Marilou David APRN [address], [place], [address], [facility] & [place] 03/02/2025 13:35:40 OBGyn Episode No OBEpisode recorded.
[2025-03-13 16:45] LABS: POC Glucose,Bedside 150 (70-110)
--- NOTE | 2025-03-13 17:01 | PC.NURSE ---
Emesis times 2 patient reports, pain meds and nausea meds given several times today.
[2025-03-13 21:30] LABS: POC Glucose,Bedside 151 (70-110)
[2025-03-13] MEDS: MONTELUKAST SODIUM 10MG TAB 10 MG PO (21:37)
[2025-03-13] MEDS: PRAVASTATIN 40MG TAB 40 MG PO (21:37)
[2025-03-13] MEDS: PANTOPRAZOLE 40MG TABLET 40 MG PO (21:37)
[2025-03-13] MEDS: SACUBITRIL/VALSARTAN 24-26MG TABLET 1 EACH PO (22:03)
[2025-03-14] VITALS: BP 110/68; PULSE 71; RESP 17; TEMP 36.6; O2SAT 100
[2025-03-14] MEDS: OXYCODONE 5MG IMMEDIATE RELEASE TABLET 5 MG PO ×2 (02:44→10:40)
[2025-03-14 04:00] VITALS: BP 109/59; PULSE 77; RESP 18; TEMP 36.9; O2SAT 99; BMI 47.8
--- NOTE | 2025-03-14 04:55 | PC.NURSE ---
Pt. is alert and orientated x 4. Pt . has UTI and pyelonephritis. Pt. on room air. Pt. having left flank pain that radiates to the groin. Pt. has a staghorn calculi and being followed at [facility] with urology. Plan to have surgery at end of April. Pt. getting IV antibiotics for UTI. Pt. on diabetic diet. ACHS blood sugars followed. Pt. is on a waitlist for transer to [facility]. no beds available. Other than pain pt. has no other c/o's this shift. Pt. sleeping off and on. Personal items and call romero in reach.
[2025-03-14] MEDS: ERTAPENEM SODIUM 1 GM in 0.9 % SODIUM CHLORIDE 50 ML IV (05:27)
[2025-03-14] MEDS: SODIUM CHLORIDE 0.9% 10ML FLUSH SYRINGE 10 ML IV ×2 (05:32→06:06)
[2025-03-14 05:48] LABS: POC Glucose,Bedside 188 (70-110)
[2025-03-14] MEDS: humaLOG 100 UNITS/ML 10ML VIAL (SSI) SUBCUT (05:48)
--- NOTE | 2025-03-14 06:58 | EXP.DC.SUM ---
General Admission date:: 03/12/25 Discharge date: 03/14/25 HPI HPI HPI: This is a 49year-old female with past medical history of staghorn calculi with known MDRO infection, COPD, DM 2, recent parathyroidectomy, RA, chronic pain, chronic diastolic heart failure who presents emergency department today with complaints of abdominal pain, urinary discomfort and left flank pain. She has a known staghorn calculi with procedure scheduled for the end of April. Has been on multiple antibiotics with multiple positive urine cultures/MDRO. She reports seeing [place] [facility] who recently did a urine culture while she was on amoxicillin. States that she has been on this amoxicillin for approximately 1 week. States that her symptoms have gotten worse despite being on these antibiotics. She reports taking her home medications without significant relief. Denies any fever but does endorse nausea and vomiting. Workup in the emergency department notable for urinary tract infection, staghorn calculi and increasing leukocytosis with a white blood cell count of 14. Urine culture from [place] [facility] notable for VRE, MDRO and staph saprophyticus with oxacillin resistance. ED provider graciously spoke with [facility] and spoke with pharmacist who recommended ertapenem, daptomycin or linezolid. Given patient has tolerated ertapenem in the past with multiple drug allergies listed, ER provider did initiate ertapenem. Given the complexity of her urological process, transfer was initiated to [facility] since patient does have follow-up scheduled with them at the end of April. Dr. Olvera graciously accepted patient however they do not have bed availability at this time as the patient has been waitlisted. Bed availability not likely available this morning. Patient does have preference to be admitted to [facility] given that is where her urology team is. Given likely prolonged bed assignment, will admit here for continuation of care and transfer once bed is available Hospital Course Hospital Course Hospital Course: 49-year-old female with known staghorn calculi in left kidney, presented with suspicion of UTI secondary to MDRO. Urine culture growing Proteus with extensive resistance. Sensitive to ertapenem. Tolerating ertapenem during admission. PICC line placed on day of discharge. Will continue course of antibiotics to complete 10 days total. Plan to return as outpatient for infusion. Stable discharge home. Problems addressed as follows: #Acute pyelonephritis secondary to staghorn calculi # Multidrug-resistant infection Presented with concern for acute pyelonephritis and UTI. Current urine culture growing Proteus with extensive resistance. Sensitive to ertapenem. Previous culture at outside facility notable for VRE and Staph saprophyticus with oxacillin resistance. Tolerating 1 g ertapenem daily. Will complete 10 days total of antibiotics. PICC line placed on day of discharge. Labs with normal white count of 11 on day of discharge. Kidney function normal with BUN 15, creatinine 0.8. Making good urine. Needs close outpatient follow-up. Recommend follow-up with urology for permanent management of staghorn calculi with extraction. Stable discharge with family. -Pain well-controlled with oxycodone and Toradol #Status post parathyroidectomy Status post parathyroidectomy 2 weeks. Calcium levels 9.7 during admission. Within normal range. Continue cholecalciferol 5000 units every 2 days and calcium carbonate 2000 mg 4 times a day. #Morbid obesity: complicates all aspects of care #Chronic diastolic heart failure: Not in exacerbation at this time. Denies any worsening edema or shortness of breath. Continue daily Bumex #DM2: Mounjaro on hold during admission. Resume at discharge. Recommend discontinuing SGLT2 due to increased risk for recurrent UTIs. #COPD: Not in exacerbation at this time, continue bronchodilators. Total time spent on discharge 37 minutes in counseling, documentation, chart review, and direct care with patient. Exam Data for Last 24 hours Vital signs and Labs for Last 24 Hours: Temp Pulse Resp BP Pulse Ox O2 Del Method O2 Flow Rate 98.5 F 77 18 109/59 L 99 Nasal Cannula 2 03/14/25 04:00 03/14/25 04:00 03/14/25 04:00 03/14/25 04:00 03/14/25 04:00 03/14/25 06:42 03/14/25 06:42 Laboratory Results - last 24 hr 03/13/25 06:40: WBC 10.5, RBC 5.28, Hgb 14.8, Hct 46.2, MCV 87.5, MCH 28.0, MCHC 32.0, RDW 13.9, Plt Count 285, MPV 9.9, Neut % (Auto) 67.8, Lymph % (Auto) 21.9, Lewis % (Auto) 6.8, Eos % (Auto) 2.5, Baso % (Auto) 0.7, Neut # (Auto) 7.1, Lymph # (Auto) 2.3, Lewis # (Auto) 0.7, Eos # (Auto) 0.3, Baso # (Auto) 0.1, Sodium 136, Potassium 3.7, Chloride 96 L, Carbon Dioxide 33 H, Anion Gap 10.7, BUN 18 H, Creatinine 0.80, Estimated Creat Clear 66, Estimated GFR 76, Est GFR ( Amer) 92, Glucose 153 H, Calcium 9.6, Magnesium 2.2 D, Total Bilirubin 0.8, AST 49 H, ALT 70 D, Alkaline Phosphatase 103, Total Protein 7.3, Albumin 4.2, Globulin 3.1, Albumin/Globulin Ratio 1.4 03/13/25 10:24: POC Glucose 214 H 03/13/25 16:35: POC Glucose 150 H 03/13/25 21:18: POC Glucose 151 H 03/14/25 05:37: POC Glucose 188 H I & O for Last 24 hours: Intake & Output 03/11/25 03/12/25 03/13/25 03/14/25 23:59 23:59 23:59 23:59 Intake Total 600 / 840 1000 / 1050 50 / 50 Output Total 0 / 0 0 / 0 0 / 0 Balance 600 / 840 1000 / 1050 50 / 50 Weight 127.006 kg 127.261 kg 127.596 kg 122.515 kg Microbiology Reports for the Last 24 Hours: Microbiology 03/12/25 01:37 Urine,Clean Catch Urine Culture - Final Proteus mirabilis Constitutional Constitutional: no acute distress, morbidly obese, chronically ill appearing and cooperative *Routine HEENT Exam Head: Present normocephalic Eye: Present EOMI and PERRL ENT: Present mucous membranes moist *Routine Neck Exam Neck: Present supple; Absent lymphadenopathy *Routine Respiratory Exam Respiratory: Present CTA bilaterally; Absent rhonchi, wheezes or crackles *Routine Cardiovascular Exam Cardiovascular: Present RRR *Routine Abdominal Exam Abdominal: Present soft and normoactive bowel sounds; Absent tenderness *Routine Rectal Exam Patient deferred: visual exam *Routine Exam Patient deferred: external exam *Routine Extremities Exam Extremities: Absent cyanosis, clubbing or edema Routine Back/Spine/Pelvis Exam Back/Spine: Present CVA tenderness (mild on left) *Routine Skin Exam Skin: Present warm; Absent rash *Routine Neurological Exam Neurological: Present alert, oriented X3 and moving all extremities; Absent altered mental status Results Data Completed and Pending Labs on day of discharge: Labs from last 24 hours 03/14/25 03/13/25 03/13/25 05:37 21:18 16:35 WBC RBC Hgb Hct MCV MCH MCHC RDW Plt Count MPV Neut % (Auto) Lymph % (Auto) Lewis % (Auto) Eos % (Auto) Baso % (Auto) Neut # (Auto) Lymph # (Auto) Lewis # (Auto) Eos # (Auto) Baso # (Auto) Sodium Potassium Chloride Carbon Dioxide Anion Gap BUN Creatinine Estimated Creat Clear Estimated GFR Est GFR ( Amer) Glucose POC Glucose 188 H 151 H 150 H Calcium Magnesium Total Bilirubin AST ALT Alkaline Phosphatase Total Protein Albumin Globulin Albumin/Globulin Ratio 03/13/25 03/13/25 10:24 06:40 WBC 10.5 RBC 5.28 Hgb 14.8 Hct 46.2 MCV 87.5 MCH 28.0 MCHC 32.0 RDW 13.9 Plt Count 285 MPV 9.9 Neut % (Auto) 67.8 Lymph % (Auto) 21.9 Lewis % (Auto) 6.8 Eos % (Auto) 2.5 Baso % (Auto) 0.7 Neut # (Auto) 7.1 Lymph # (Auto) 2.3 Lewis # (Auto) 0.7 Eos # (Auto) 0.3 Baso # (Auto) 0.1 Sodium 136 Potassium 3.7 Chloride 96 L Carbon Dioxide 33 H Anion Gap 10.7 BUN 18 H Creatinine 0.80 Estimated Creat Clear 66 Estimated GFR 76 Est GFR ( Amer) 92 Glucose 153 H POC Glucose 214 H Calcium 9.6 Magnesium 2.2 D Total Bilirubin 0.8 AST 49 H ALT 70 D Alkaline Phosphatase 103 Total Protein 7.3 Albumin 4.2 Globulin 3.1 Albumin/Globulin Ratio 1.4 DS: Diagnosis Discharge Diagnosis (1) Infection due to vancomycin resistant Enterococcus faecium: Status: Acute Code(s): A49.8 - Other bacterial infections of unspecified site; Z16.21 - Resistance to vancomycin (2) Complicated urinary tract infection: Status: Acute Code(s): N39.0 - Urinary tract infection, site not specified (3) Morbid obesity: Status: Chronic Code(s): E66.01 - Morbid (severe) obesity due to excess calories (4) Type 2 diabetes mellitus without complications: Status: Chronic Code(s): E11.9 - Type 2 diabetes mellitus without complications (5) Bacterial infection due to Proteus mirabilis: Status: Acute Code(s): A49.8 - Other bacterial infections of unspecified site (6) Vitamin D deficiency: Status: Chronic Code(s): E55.9 - Vitamin D deficiency, unspecified (7) Morbid obesity: Status: Chronic Code(s): E66.01 - Morbid (severe) obesity due to excess calories (8) COPD (chronic obstructive pulmonary disease): Status: Chronic Code(s): J44.9 - Chronic obstructive pulmonary disease, unspecified (9) HTN (hypertension): Status: Chronic Code(s): I10 - Essential (primary) hypertension Qualifiers: Hypertension type: essential hypertension Qualified Code(s): I10 - Essential (primary) hypertension (10) Hyperparathyroidism: Status: Chronic Code(s): E21.3 - Hyperparathyroidism, unspecified (11) Staghorn calculus: Status: Acute Code(s): N20.0 - Calculus of kidney Meds Home Medications and Allergies Home Medications ?Medication ?Instructions ?Recorded ?Confirmed ?Type nebivolol 5 mg tablet 5 mg PO DAILY 12/21/21 03/12/25 History spironolactone 50 mg tablet 50 mg PO DAILY 03/30/22 03/12/25 History (Aldactone) omeprazole 20 mg capsule,delayed 20 mg PO DAILY 04/24/22 03/12/25 History release sacubitril 24 mg-valsartan 26 mg 1 tab PO BID 03/04/23 03/12/25 History tablet (Entresto) cetirizine 10 mg tablet (Zyrtec) 10 mg PO DAILY 02/06/24 03/12/25 History blood sugar diagnostic (OneTouch #300 ea 09/02/24 03/12/25 Rx Verio test strips) pravastatin 40 mg tablet 40 mg PO HS #90 tabs 11/11/24 03/12/25 Rx ascorbic acid (vitamin C) 500 mg 500 mg PO BID 01/27/25 03/12/25 History tablet (Vitamin C) cholecalciferol (vitamin D3) 125 5,000 unit PO Q48H 01/27/25 03/12/25 History mcg (5,000 unit) capsule montelukast 10 mg tablet 10 mg PO HS 01/27/25 03/12/25 History tirzepatide 2.5 mg/0.5 mL 2.5 mg SQ WEEKLY 01/28/25 03/12/25 History subcutaneous pen injector (Mounjaro) tramadol 50 mg tablet 50 mg PO Q6H PRN pain #120 tabs 02/02/25 03/12/25 Rx sennosides 8.6 mg tablet (senna) 8.6 mg PO BID PRN constipation #30 02/03/25 03/12/25 Rx tabs ketorolac 10 mg tablet 10 mg PO Q6H PRN pain 5 days #20 02/05/25 03/12/25 Rx tabs oxycodone 5 mg tablet 5 mg PO Q8H PRN pain #60 tabs 02/19/25 03/12/25 Rx ibuprofen 800 mg tablet 800 mg PO TID PRN Pain #90 tabs 02/26/25 03/12/25 Rx metformin 500 mg tablet 500 mg PO BID #180 tabs 02/26/25 03/12/25 Rx albuterol sulfate 90 mcg/actuation 2 puff inhalation QID PRN 03/12/25 03/12/25 History aerosol inhaler Breathing Problems bumetanide 2 mg tablet 2 mg PO DAILY 03/12/25 03/12/25 History calcium 500 mg tablet 2,000 mg PO QID 03/12/25 03/12/25 History fluticasone fur. 100 mcg-umeclid 1 ea inhalation DAILY 03/12/25 03/12/25 History 62.5 mcg-vilant 25 mcg inhalat.powder (Trelegy Ellipta) ondansetron HCl 4 mg tablet 4 mg PO Q6H 03/12/25 03/12/25 History promethazine 12.5 mg tablet 12.5 mg PO Q8 PRN Nausea 03/12/25 03/12/25 History ertapenem 1 gram solution for 1 g IV Q24H 8 days #0 ea 03/14/25 Rx injection New Prescriptions to Start Prescriptions: Allergies Allergy/AdvReac Type Severity Reaction Status Date / Time aspirin Allergy Severe S-DIFF. Verified 03/03/25 13:08 BREATHING bee venom protein (honey bee) Allergy Severe Anaphylaxis Verified 03/03/25 13:08 Bleach (Sodium Hypochlorite) Allergy Severe diff. Verified 03/03/25 13:08 breathing, dizzy amoxicillin (From Augmentin) Allergy Mild Unknown Verified 03/03/25 13:08 allergy reaction clavulanic acid (From Allergy Mild Unknown Verified 03/03/25 13:08 Augmentin) allergy reaction fluconazole (From Diflucan) Allergy Mild Unknown Verified 03/03/25 13:08 allergy reaction levofloxacin (From Levaquin) Allergy Difficulty Verified 03/03/25 13:08 Breathing pneumococcal vaccine Allergy Unknown Verified 03/03/25 13:08 allergy reaction sulfamethoxazole (From Allergy Unknown Verified 03/03/25 13:08 Bactrim) allergy reaction trimethoprim (From Bactrim) Allergy Unknown Verified 03/03/25 13:08 allergy reaction sucralose (From SUCRALOSE AdvReac Severe breathing Verified 03/03/25 13:08 (FOOD/DRUG)) problems Discharge Plan Disposition Patient Disposition: Home, Self-Care Condition: Fair Discharge Order Discharge Orders: Discharge Order (Routine); Ordered 03/14/25 Ordered By: Alexys Matias Follow up Plan Follow up with: Juarez Griffin MD [Primary Care Provider] - Enter time for follow up (Please call for follow up appointment) Prescriptions/Medication Reconciliation: New ertapenem 1 gram Recon Soln 1 g IV Q24H 8 Days Qty: 0 0RF Continued spironolactone [Aldactone] 50 mg tablet 50 mg PO DAILY Entresto 24-26 mg tablet 1 tab PO BID (DME) OneTouch Verio test strips Strip See Rx Instructions .Route Qty: 300 1RF Rx Instructions: As directed omeprazole 20 mg capsule,delayed release(DR/EC) 20 mg PO DAILY pravastatin 40 mg tablet 40 mg PO HS Qty: 90 1RF tramadol 50 mg tablet 50 mg PO Q6H PRN (Reason: pain) Qty: 120 0RF sennosides [senna] 8.6 mg tablet 8.6 mg PO BID PRN (Reason: constipation) Qty: 30 0RF oxycodone 5 mg tablet 5 mg PO Q8H PRN (Reason: pain) Qty: 60 0RF metformin 500 mg tablet 500 mg PO BID Qty: 180 1RF Rx Instructions: TAKE ONE TABLET BY MOUTH TWICE DAILY ibuprofen 800 mg tablet 800 mg PO TID PRN (Reason: Pain) Qty: 90 2RF Rx Instructions: TAKE ONE TABLET BY MOUTH THREE TIMES DAILY NEEDED WITH FOOD ascorbic acid (vitamin C) [Vitamin C] 500 mg tablet 500 mg PO BID Rx Instructions: TAKE ONE TABLET BY MOUTH TWICE DAILY montelukast 10 mg tablet 10 mg PO HS Rx Instructions: TAKE ONE TABLET BY MOUTH EVERY DAY AT BEDTIME FOR ASTHMA cholecalciferol (vitamin D3) 125 mcg (5,000 unit) capsule 5,000 unit PO Q48H Mounjaro 2.5 mg/0.5 mL pen injector 2.5 mg SQ WEEKLY Patient Comments: Patient on pause due to upcoming surgery Rx Instructions: for 4 weeks ketorolac 10 mg tablet 10 mg PO Q6H PRN (Reason: pain) 5 Days Qty: 20 0RF bumetanide 2 mg tablet 2 mg PO DAILY calcium 500 mg Tablet 2,000 mg PO QID Trelegy Ellipta 100-62.5-25 mcg blister with device 1 ea INHALATION DAILY Patient Comments: INHALE 1 PUFF BY MOUTH EVERY DAY --RINSE MOUTH AFTER USE-- promethazine 12.5 mg Tablet 12.5 mg PO Q8 PRN (Reason: Nausea) ondansetron HCl 4 mg Tablet 4 mg PO Q6H albuterol sulfate 90 mcg/actuation Hfa Aerosol Inhaler 2 puff INHALATION QID PRN (Reason: Breathing Problems) nebivolol 5 MG tablet 5 mg PO DAILY cetirizine [Zyrtec] 10 mg Tablet 10 mg PO DAILY Discontinued empagliflozin 25 mg tablet 25 mg PO DAILY Qty: 90 1RF Problem Reconciliation Problems Reviewed?: Yes Patient Discharge Instructions ACTIVITY: Continue current activity DIET: continue same diet Patient Instructions: Kidney Infection, DI for Kidney Stones, DI for Urinary Tract Infection (UTI), Peripherally Inserted Central Catheter Infections, Stop Light COPD, Stop Light Heart Failure, Stop Light Infection Print Language: Russian Providers Primary Care Provider: Juarez Griffin Admit Provider: Alexys Matias Attending Provider: Alexys Matias
[2025-03-14 07:59] VITALS: BP 135/74; PULSE 61; RESP 19; TEMP 36.9; O2SAT 96
[2025-03-14 08:28] LABS: Basophils # 0.1 K/mm3 (0-0.2); Basophils % 0.6 % (0.1-2.0); Eosinophils # 0.2 Kmm3 (0.0-0.4); Hematocrit 44.3 % (37.0-47.0); Hemoglobin 14.2 g/dL (12.2-16.2); Immature Granulocytes # 0.04 10^3uL; Immature Granulocytes % 0.4 %; Lymphocytes # 2.8 K/mm3 (0.7-4.5); Lymphocytes % 25.2 % (10-50); Mean Corpuscular HGB Conc 32.1 g/dL (31.8-35.4); Mean Corpuscular Hemoglobin 28.1 pg (27.0-31.2); Mean Corpuscular Volume 87.7 fl (81-99); Mean Platelet Volume 10.5 fl (7.4-10.4); Monocytes # 0.9 K/mm3 (0.1-1.0); Monocytes % 7.7 % (1.7-9.3); Neutrophils # 7.2 K/mm3 (1.8-7.8); Neutrophils % 64.1 % (37.0-80.0); Nucleated Red Blood Cells # 0 10^3/uL; Nucleated Red Blood Cells % 0 %; Platelet Count 264 K/mm3 (142-424); Red Blood Count 5.05 M/mm3 (4.20-5.40); Red Cell Distribution Width-SD 44.2 fL; White Blood Count 11.2 K/mm3 (4.8-10.8)
[2025-03-14 08:37] LABS: Alanine Aminotransferase 60 U/L (12-78); Albumin/Globulin Ratio 1.4 (1.1-1.8); Alkaline Phosphatase 92 U/L (38-126); Anion Gap 10.4 mEq/L (5-15); Aspartate Amino Transferase 41 U/L (14-36); Bilirubin,Total 0.5 mg/dl (0.2-1.3); Blood Urea Nitrogen 15 mg/dl (7-17); Calcium 9.2 mg/dl (8.4-10.2); Carbon Dioxide 33 mmol/L (22.0-30.0); Chloride 94 mmol/L (98-107); Creatinine Clearance Estimated 66 mL/min (50-200); Estimated Glomerular Filt Rate 76 ml/min (>60); GFR (African American) 92 ML/MIN (>60); Globulin 2.9 g/dL (1.3-3.2); Glucose 200 mg/dl (74-100); Potassium 3.4 mmoL/L (3.5-5.1); Sodium 134 mmol/L (136-145); Total Protein,Serum 6.9 g/dl (6.3-8.2)
[2025-03-14 08:39] LABS: Magnesium 1.7 mg/dl (1.6-2.3)
[2025-03-14] MEDS: POTASSIUM CHLORIDE 20MEQ TAB 40 MEQ PO (09:12)
[2025-03-14] MEDS: ONDANSETRON 4MG/2ML VIAL 4 MG IV (09:12)
[2025-03-14] MEDS: KETOROLAC 30MG/ML VIAL 15 MG IV (09:13)
[2025-03-14] MEDS: SPIRONOLACTONE 25MG TABLET 50 MG PO (09:14)
[2025-03-14] MEDS: BUMETANIDE 1 MG TABLET 2 MG PO (09:14)
[2025-03-14] MEDS: METFORMIN 500MG TABLET 500 MG PO (09:14)
[2025-03-14] MEDS: LORATADINE 10MG TABLET 10 MG PO (09:14)
[2025-03-14] MEDS: CARVEDILOL 6.25MG TABLET 6.25 MG PO (09:15)
[2025-03-14] MEDS: MAGNESIUM SULFATE IN WATER 2 GM/50 ML PIGGYBACK IV (09:15)
[2025-03-14] MEDS: CALCIUM CARBONATE 500MG CHEWTAB 2000 MG PO (09:15)
[2025-03-14] MEDS: SACUBITRIL/VALSARTAN 24-26MG TABLET 1 EACH PO (09:21)
--- NOTE | 2025-03-14 09:23 | XR_ITS ---
PROCEDURE INFORMATION: Exam: XR Chest Exam date and time: 03/14/2025 10:25 AM Age: 49 years old Clinical indication: Device placement; Picc; Additional info: Confirm picc line placement TECHNIQUE: Imaging protocol: Radiologic exam of the chest. Views: 1 view. COMPARISON: CR XR CHEST PORTABLE 01/03/2025 1:52 PM FINDINGS: Tubes, catheters and devices: Patient has undergone placement of a left-sided PICC line terminating at the cavoatrial junction in satisfactory position. Lungs: Unremarkable. No consolidation. Pleural spaces: Unremarkable. No pleural effusion. No pneumothorax. Heart/Mediastinum: Heart appears mildly enlarged, unchanged.. Bones/joints: No acute bony abnormalities detected. IMPRESSION: Interval placement of left-sided PICC line in satisfactory position.
[2025-03-14] MEDS: FLUTICASONE/UMECLIDIN/VILANTER 100/62.5/25MCG INHALER 1 PUFF IH (09:24)
--- NOTE | 2025-03-14 10:50 | PC.NURSE ---
MD. Polly stallworth to use picc.
--- NOTE | 2025-03-14 11:52 | PC.NURSE ---
PICC line in good placement per radiology- nurse made aware.
--- NOTE | 2025-03-15 11:51 | SW/DCPLANNER ---
Spoke with patient on the phone. Patient stated that she is doing good. Patient stated that she is aware of her upcoming appointments. Patient stated that she was able to sampler pickup her new medicine. Patient asked why they discontinued her medicine and Leah called and asked and it was because it contradicts her kidney stones and suggest she needs to follow up with her Dr in [facility]. Dayron Brower
== END 2025-03-14 11:00 | disposition home or self-care (01) | DRG 690 ==
LOC: ER 03-12 01:40 → 2ND 03-12 05:10
PROVIDERS: Nurse Practitioner Acute Care; Admitting Provider Internal Medicine Adolescent Medicine; Emergency Provider Emergency Medicine; PCP Internal Medicine; Visit Provider Internal Medicine Adolescent Medicine
DX: N10 Acute pyelonephritis (principal); Z68.42 Body mass index [BMI] 45.0-49.9, adult; I50.32 Chronic diastolic (congestive) heart failure; Z16.24 Resistance to multiple antibiotics; N39.0 Urinary tract infection, site not specified; E66.01 Morbid (severe) obesity due to excess calories; E11.9 Type 2 diabetes mellitus without complications; E55.9 Vitamin D deficiency, unspecified; J44.9 Chronic obstructive pulmonary disease, unspecified; E21.3 Hyperparathyroidism, unspecified; N20.0 Calculus of kidney; I11.0 Hypertensive heart disease with heart failure; M06.9 Rheumatoid arthritis, unspecified; G89.29 Other chronic pain; B96.4 Proteus (mirabilis) (morganii) as the cause of diseases classified elsewhere; D72.829 Elevated white blood cell count, unspecified; Z90.79 Acquired absence of other genital organ(s); Z90.49 Acquired absence of other specified parts of digestive tract; Z83.3 Family history of diabetes mellitus; Z82.49 Family history of ischemic heart disease and other diseases of the circulatory system; Z82.0 Family history of epilepsy and other diseases of the nervous system; Z80.1 Family history of malignant neoplasm of trachea, bronchus and lung; Z81.8 Family history of other mental and behavioral disorders; Z83.2 Family history of diseases of the blood and blood-forming organs and certain disorders involving the immune mechanism; Z84.89 Family history of other specified conditions; Z88.1 Allergy status to other antibiotic agents; Z91.030 Bee allergy status; Z91.02 Food additives allergy status; Z88.0 Allergy status to penicillin; Z88.7 Allergy status to serum and vaccine; Z88.8 Allergy status to other drugs, medicaments and biological substances; Z91.048 Other nonmedicinal substance allergy status; Z79.85 Long-term (current) use of injectable non-insulin antidiabetic drugs; Z79.891 Long term (current) use of opiate analgesic; Z79.84 Long term (current) use of oral hypoglycemic drugs; Z79.2 Long term (current) use of antibiotics; Z79.899 Other long term (current) drug therapy
CPT/HCPCS: 36410; 36415; 36569; 71045; 74177; 80048; 80053; 81001; 82550; 82962; 83605; 83735; 84100; 84703; 85025; 87086; 87088; 87186; 94640; 99285; G0378; J1171; J1335; J1885; J2270; J2405; J3475; J7120; Q9967

== ENCOUNTER 2025-03-15 10:05 | Outpatient (CLI) | payer OTHER, SELFPAY ==
--- OUTSIDE RECORDS SUMMARY | 2025-03-15 10:08 | XMS_ITS | Data Portability ---
Author Organization [facility] Mahamed lomeli, [facility] Address [address] [place] [address] Assessment No assessment recorded. Plan of Treatment Reminders Order Date Submit Date Provider Last Modified By Organization Details Last Modified Time Details Appointments None recorded. Lab None recorded. Referral aquatic therapy referral 2017 018 [email or web address] 2 Not available 8 11:14:18 cognitive behavioral therapy referral 2017 018 [email or web address] 2 [facility] [address] [facility], [place], [address], 8 11:14:19 occupationa l therapist referral 2017 018 [email or web address] 2 Not available 8 11:14:17 Procedures None recorded. Surgeries None recorded. Imaging None recorded. Medication Orders None recorded. Patient TargetsNo targets recorded. Patient Instructions Encounter Date Encounter Id Patient Instructions Last Modified By Organization Details Last Modified Time 08/13/2018 [id number] learning about healthy weight Not available 08/13/2018 [...] Name and Address Organization Details Recorded Time [id number] aspirin medicatio n Not available Not available Not available 08/13/2018 1191 RxNorm Melinad Hudson [facility] 8 10:01:54 Medications Name Sig Start [...] Address Organization Details Last Updated DateTime 8 064115. 12 g 48.2 kg/m2 160.02 cm 18 /min 61 /min 132 mm[Hg] 96 mm[Hg] Melinda Hudson [facility] 8 10:06:40 Social History Question Answer Notes LastModified by Organizat ion Details LastModified Time Tobacco Smoking Status Never Smoker Melinda Hudson [facility] 08/13/2018 10:02:03 What Was The Date Of Your Most Recent Tobacco Screening? 08/13/2018 Information n ot available 12/15/2019 Sex: Unknown Functional Status None recorded. Mental Status None recorded. Family History Relationship Description Onset Age of this Age Resolved Age Notes LastModified by Organization Details LastModified Time Father No current problems or disability [email or web address] Not available 08/13 10:02:01 Mother No current problems or disability [email or web address] Not available 08/13 10:02:01 Medical History Condition [...] SNOMED-CT Code Diagnosis ICD10 Code Diagnosis Note [id number] CLIFF BARBER MD RHEUMATOL OGY [address] [place] [address] 08/13/2018 09:13:44 08/13/2018 10:48:47 Pain of multiple joints 46765750 M25.50 she has clinical features of Dixon OA. no features of an inflammato ry arthritis noted. no features of rheumatoid noted. 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 would suggest to avoid steroids and start OT as stated below. she can RTC with me as prn. 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 Health Concerns Section Related Observation LastModified by Organization Detai ls LastModified Time None Recorded Concern Status LastModified by Organization Details LastModified Time None Recorded Advance Directives Directive None Recorded Payers Insurance Date Sequence Insurance Name Policy Number Policy Valdivia Covered Member ID Valdivia Member ID Guarantor Name 02/03/2024 1 [facility]ICAID [id number] 01/24/2024 1 [place] [place]FS/TRADITIO NAL Lissy [facility] [id number] Lissy [facility] 02/04/2024 1 [facility] (MEDICAID HMO) [facility] [id number] Lissy [facility] 01/31/2024 1 [place] [id number] Lissy [facility] [id number] 01 Lissy [facility] Notes Date Note Type Note Provider [...] and a normal TSH. CLIFF BARBER MD [facility], [place], [address], [facility] 08/13/2018 17:00:47 OBGyn Episode No OBEpisode recorded.
--- OUTSIDE RECORDS SUMMARY | 2025-03-15 10:09 | XMS_ITS | Continuity of Care Document ---
Author Organization [facility] -[facility] Address [address] [place] [address] Care Team Providers Care Survey Instrument Operator Name Role Phone SHERI BENAVIDESGHT Primary Care Provider Assessment No assessment recorded. Plan of Treatment Reminders Order Date Submit Date Provider Last Modified By Organization Details Last Modified Time Details Appointments Establish ed Visit 15 min 2024 01:45P M Marilou nation APRN Not available Not available Not available Lab urinalysi s, dipstick [address] Infectious Disease -105, [address], [place], [address], 02/23/2025 14:18:52 CBC w/ diff 2024 025 [facility] (Registration ), [address] , [place], [address], 02/23/2025 16:11:55 CMP, serum or plasma 2024 025 [facility] (Registration ), [address] , [place], [address], 02/23/2025 15:39:03 ESR (erythroc yte sedimenta tion rate), blood [address] (Registration ), [address] , [place], [address], 03/09/2025 08:54:47 C-reactiv e protein, quantitat estefania, serum or plasma 2024 025 [email or web address] [facility] (Registration ), [address], [place], [address], 03/09/2025 08:54:48 culture, urine 2024 025 [facility], [address], [address], [place], [address], 02/27/2025 19:09:52 Referral None recorded. Procedures None recorded. Surgeries None recorded. Imaging None recorded. Medication Orders None recorded. Patient TargetsNo targets recorded. Patient InstructionsNo instructions recorded. Reason for Referral None Reported. Results Created Date Observation Date Name Description Value Unit Range Abnormal Flag Note LastModifiedBy Organization Detail LastModifiedTime 02/24/2002/23/2025 urina lysis , dipst ick Leukocytes (reference range) trace Not Available [facility] [address] [facility] [address], [place], [address], 02/23/2025 14:16:48 02/24/20 25 02/23/2025 urina lysis , dipst ick Nitrite (reference range:) negati ve Not Available [facility] Infectious Disease [facility] [address] [facility] [address], [place], [address], 02/23/2025 14:16:48 02/24/20 25 02/23/2025 urina lysis , dipst ick Urobilinogen (reference range) 0.2 Not Available [facility] -105 [address] [facility] [address], [place], [address], 02/23/2025 14:16:48 02/24/20 25 02/23/2025 urina lysis , dipst ick Protein (reference range) negati ve Not Available [facility] Infectious Disease -[facility] [address] [facility] [address], [place], [address], 02/23/2025 14:16:48 02/24/20 25 02/23/2025 urina lysis , dipst ick pH (reference range 5-8.5) 6.0 Not Available [facility]ious [facility] [address], [place], [address], 02/23/2025 14:16:48 02/24/20 25 02/23/2025 urina lysis , dipst ick Blood (reference range:) small Not Available [place] [address] [address] [facility] [address], [place], [address], 02/23/2025 14:16:48 02/24/20 25 02/23/2025 urina lysis , dipst ick Specific [place] (reference range) 1.015 Not Available [place] [address] [address] [facility] [address], [place], [address], 02/23/2025 14:16:48 02/24/20 25 02/23/2025 urina lysis , dipst ick Ketone (reference range) negati ve Not Available [place] [address] [address] [facility] [facility] [address], [place], [address], 02/23/2025 14:16:48 02/24/20 25 02/23/2025 urina lysis , dipst ick Bilirubin (reference range) negati ve Not Available [place] [address] [address] [facility] [address], [place], [address], 02/23/2025 14:16:48 02/24/20 25 02/23/2025 urina lysis , dipst ick Glucose (reference range) 500 Not Available [place] [address] [address] [facility] [facility] [address], [place], [address], 02/23/2025 14:16:48 02/24/20 25 02/23/2025 urina lysis , dipst ick Color (reference range: yellow-brown ) Dark Yellow Not Available [facility] Infectious Disease -[address], [place], [address], 02/23/2025 14:16:48 Result Notes None recorded. Problems Name Problem SNOMED Code Status Onset Date Resolution Date Notes Provider Name and Address Organization Details Recorded Time Syncope 647449523 Active 2021 Malina Hernandez DO [address], [place], [address] , [place] - [facility] - [place] & [place] 15:33:04 Hypersomnia 02886799 Active 2021 Malina Hernandez DO [address], [place], [address] , [place] - [facility] - [place] & [place] 15:34:08 Problem Notes None recorded. Procedures Surgical History Date Name Laterality Status Provider Name and Address Organization Details Recorded Time 09/25/20 23 Cystoscopy-Female completed Silvio Valdez MD [address] [facility], [place], [address], [place] [facility] & [place] 09/25/2023 15:26:11 04/04/20 22 Date of Last Pap Smear completed Vandana Dalla [place] - [facility] - [place] & [place] 10/03/2022 14:31:43 10/28/19 22 Airfield Engineer Officer Surgery completed Vandana Dalla [place] - [facility] & [place] 10/03/2022 14:45:45 10/28/19 17 Cholecystectomy completed Vandana Dalla [place] - [facility] & [place] 10/03/2022 14:32:27 10/28/19 14 Other completed [facility]ana [facility]alla [place] [facility] [place] 10/03/2022 14:44:51 cardiac catheterization completed Vandana Dalla [place] - [facility] & [place] 10/03/2022 14:46:31 strabismus surgery completed Vandana Dalla [place] - [facility] & [place] 10/03/2022 14:55:15 Imaging Results None recorded. Procedure Notes None recorded. Medical Equipment None Reported. Allergies Allergen ID Allergen Name Allergen Category Reaction Reaction Severity Criticality Documentation Date Start Date Code Code System Note Provider Name and Address Organization Details Recorded Time 44995 aspirin medicatio n chest pain wheezing moderate severe Not available 10/02/2022 1191 RxNorm RAFITA [facility] & [place] 2 09:22:42 68777 Bactrim medicatio n arthralgi a (joint pain) muscle cramps severe severe Not available 10/02/2022 41190 9 RxNorm RAFITA [facility] & [place] 2 09:22:49 64653 insect venom environme nt confusion cough dizziness fever flushing headache wheezing moderate moderate moderate mild moderate moderate moderate Not available 10/02/2022 62310 UNK RAFITA Rede [facility] & [place] 2 09:23:13 29081 Pneumococ georges vaccine Not available anaphylax is chest pain facial swelling nausea rash wheezing moderate moderate moderate moderate moderate moderate Not available 10/02/2022 72749 7 RxNorm RAFITA [facility] & [place] 2 09:23:25 75668 rosuvasta tin medicatio n eye swelling facial swelling respirato ry distress moderate moderate moderate Not available 10/02/2022 94825 2 RxNorm Vandana catherine, RAFITA L[facility] & [place] 2 09:23:35 Medications Name Sig Start Date Stop Date Status Note LastModified by Organization Details LastModified Time amoxicillin 500 mg capsule TAKE TWO CAPSULES BY MOUTH THREE TIMES DAILY FOR uti -- FINISH ALL MEDICINE -- --TAKE WITH FOOD-- active Not Available Not [...] BY MOUTH THREE TIMES DAILY NEEDED FOR PAIN active Not Available Not Available No t [...] ONE CAPSULE BY MOUTH EVERY TWELVE HOURS DIRECTED FOR 10 DAYS -- FINISH ALL MEDICINE [...] % 80 /min 98.6 [degF] 49.6 kg/m2 853851. 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 Occasional Information not available 10/03/2022 Mental Status Question Answer Note LastModified by Organization D etails LastModified Time Do you feel stressed (tense, restless, nervous, or anxious, or unable to sleep at night)? [id number] Information not available 10/03/2022 Family History Relationship [...] Y Back Problems Y GI Problems Y Asthma Y Lung Disease Y COPD Y Pneumonia [...] SNOMED-CT Code Diagnosis ICD10 Code Diagnosis Note [id number] Marilou Herbert in, MANUFACTURING MANAGEMENT ASSOCIATE [facility] Infectiou s Disease -[address] [place] [address] 02/23/2025 13:48:33 02/23/2025 14:17:11 Recurrent urinary tract infection 470524640 N39.0 Will check lab work. Will send urine off for a culture. Will see patient back in 1 week. Health Concerns Section Related Observation LastModified by Organization Detai ls LastModified Time None Recorded Concern Status LastModified by Organization Details LastModified Time None Recorded Payers Encounter Date Sequence Insurance Name Policy Number Policy Valdivia Covered Member ID Valdivia Member ID Guarantor Name 02/23/2025 1 [facility] (MEDICAID HMO) Lissy Valdez [id number] Lissy Valdez Notes Date Note Type Note [...] with urology in April 2025. Marilou David, MANUFACTURING MANAGEMENT ASSOCIATE [address], [place], [address], [facility] [place] 02/24/2025 10:59:38 OBGyn Episode No OBEpisode recorded.
--- OUTSIDE RECORDS SUMMARY | 2025-03-15 10:09 | XMS_ITS | Continuity of Care Document ---
Author Organization [facility] Infectious Disease -105 Address [address] [place] [address] Care Team Providers Care C Iron Worker Name Role Phone ZAHRAA BENAVIDES Primary Care Provider [phone] Assessment No assessment recorded. Plan of Treatment [...] and Address Organization Details Recorded Time Syncope 867984508 Active 2021 Malina Hernandez DO [address], [place], [address] , [facility] & [place] 2 15:33:04 Hypersomnia 28445768 Active 2021 Malina Hernandez DO [address], [place], [address] , [facility] & [place] 2 15:34:08 Problem Notes None recorded. Procedures Surgical History Date Name Laterality Status Provider Name and Address Organization Details Recorded Time 09/25/20 23 Cystoscopy-Female completed Silvio Valdez MD [address], [place], [address], [facility] & [place] 09/25/2023 15:26:11 04/04/20 22 Date of Last Pap Smear completed Vandana ELLER - [facility] - [place] & [place] 10/03/2022 14:31:43 10/28/19 22 Automatic Centrifugal Station Operator Surgery completed Vandana ELLER - [facility] & [place] 10/03/2022 14:45:45 10/28/19 17 Cholecystectomy completed Vandana Beckera RAFITA - [facility] - [place] & [place] 10/03/2022 14:32:27 10/28/19 14 Other completed Vandana Beckera RAFITA - [facility] - [place] & [place] 10/03/2022 14:44:51 cardiac catheterization completed Vandana ELLER - [facility] - [place] & [place] 10/03/2022 14:46:31 strabismus surgery completed Vandana ELLER - [facility] & [place] 10/03/2022 14:55:15 Imaging Results None recorded. Procedure Notes None recorded. Medical Equipment None Reported. Allergies Allergen ID Allergen Name Allergen Category Reaction Reaction Severity Criticality Documentation Date Start Date Code Code System Note Provider Name and Address Organization Details Recorded Time 58902 aspirin medicatio n chest pain wheezing moderate severe Not available 10/02/2022 1191 RxNorm Vandana catherine, RAFITA - [facility] & [place] 2 09:22:42 91969 Bactrim medicatio n arthralgi a (joint pain) muscle cramps severe severe Not available 10/02/2022 90675 9 RxNorm Vandana Harris null, RAFITA - [facility] & [place] 2 09:22:49 14964 insect venom environme nt confusion cough dizziness fever flushing headache wheezing moderate moderate moderate mild moderate moderate moderate Not available 10/02/2022 34648 UNK Vandana Harris null, [place] - [facility] & [place] 2 09:23:13 07181 Pneumococ georges vaccine Not available anaphylax is chest pain facial swelling nausea rash wheezing moderate moderate moderate moderate moderate moderate Not available 10/02/2022 39707 7 RxNorm Vandana Eugenioa null, [place] - [facility] & [place] 2 09:23:25 88914 rosuvasta tin medicatio n eye swelling facial swelling respirato ry distress moderate moderate moderate Not available 10/02/2022 61443 2 RxNorm Vandana RAFITA [place] - [place] - [place] & [place] 2 09:23:35 Medications Name Sig Start Date [...] % 60 /min 97.7 [degF] 49.6 kg/m2 780910. 86 g 119 mm[Hg] 79 mm[Hg] Bianca Smith [facility] & [place] 13:31:54 Social History Question Answer Notes LastModified by Musisticizat ion Details LastModified Time Tobacco Smoking Status [facility] [place] 10/03/2022 14:32:09 Do You Have An Advance Directive? No Information not available 10/03/2022 Are You Blind Or Do You Have Difficulty Seeing? No Information not available 10/03/2022 What Was The Date Of Your Most Recent Tobacco Screening? 09/17/2022 Information not available 10/03/2022 Do You Have Any Pets? Yes [email or web address] Information not available 09/25/2023 Are You Passively Exposed To Smoke? No Information not available 10/03/2022 Are You Currently In School? No MASTERS [email or web address] Information not available 09/25/2023 Sex: Female Functional Status Question Answer Note LastModified by Organizat ion Details LastModified Time Do you use any illicit or recreational drugs? No Information not available 10/03/2022 What is your level of alcohol consumption? 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 Occasional Information not available 10/03/2022 Mental Status Question Answer Note LastModified by Organization D etails LastModified Time Do you feel stressed (tense, restless, nervous, or anxious, or unable to sleep at night)? [id number] Information not available 10/03/2022 Family History Relationship [...] SNOMED-CT Code Diagnosis ICD10 Code Diagnosis Note [id number] [facility] [address] [facility] [address] [place] [address] 02/23/2025 13:48:33 02/23/2025 14:17:11 Recurrent urinary tract infection 886764865 N39.0 Will check lab work. Will send urine off for a culture. Will see patient back in 1 week. 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 Patient will follow up in 2 weeks. Call the office if anything persists or worsens. 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 Urine culture results received. Patient denies any fever. She is scheduled to have surgery to remove her stone on . Marilou David, EVENT EXECUTIVE [address], [place], [address], [facility] - [place] - [place] & [place] 03/02/2025 13:35:40 OBGyn Episode No OBEpisode recorded.
--- OUTSIDE RECORDS SUMMARY | 2025-03-15 10:10 | XMS_ITS | Data Portability ---
Author Organization [facility] [place] Alejandro ADMIN Address [address] [place] [id number] Care Team Providers Care Wet Sander Name Role Phone ZAHRAA BENAVIDES Primary Care Provider [phone] Assessment Encounter Date Assessment Date Assessment LastModified by Organization Details LastModified Time 08/07/2023 08/07/[address] scan images onto our system. Will review to determine the degree of stone burden bilaterally in the kidneys. Will also plan cystoscopy and pelvic exam in the office in the near future. [email or web address] Not available 08/07/2023 15:34:46 09/25/2023 09/25/2023 I [...] in 6 months with KUB and UA. [email or web address] Not available 09/25/2023 15:29:09 Plan of Treatment Reminders Order Date Submit Date Provider Last Modified By Organization Details Last Modified Time Details Appointments Establish ed Visit 15 min 2024 01:45P M Marilou nation APRN Not available Not available Not available Lab urinalysi s, dipstick [address] [facility] -105, [address], [place], [address], 02/23/2025 14:18:52 CBC w/ diff 2024 025 [facility] (Registration ), [address] [facility], [place], [address], 02/23/2025 16:11:55 CMP, serum or plasma 2024 025 [facility] (Registration ), [address] [facility], [place], [address], 02/23/2025 15:39:03 ESR (erythroc yte sedimenta tion rate), blood [address] (Registration ), [address] [facility], [place], [address], 03/09/2025 08:54:47 C-reactiv e protein, quantitat estefania, serum or plasma [address] (Registration ), [address] [facility], [place], [address], 03/09/2025 08:54:48 culture, urine 2024 025 [place], [address], [address], [place], [address], 02/27/2025 19:09:52 urinalysi s, dipstick 2022 023 [email or web address] [facility], [address] [facility], [address], [place], [address], 08/07/2023 16:08:29 Referral None recorded. Procedures None [...] usal 7.7 - 58.5 Perfo rmed at: [address] [address] Lab Direc tor: Los carson PhD, Phone : [phone] Not Available [facility] ([facility]) [address] [place], [address], 04/03/2023 10:13:10 04/02/20 23 04/03/2023 FSH FSH, serum 5.4 mIU/m L Adult Femal e: Folli cular phase 3.5 - 12.5 Ovula tion phase 4.7 - 21.5 Lutea l phase 1.7 - 7.7 Postm enopa usal 25.8 - 134.8 Perfo rmed at: [address] [address] Lab Direc tor: Los carson PhD, Phone : [phone] Not Available [facility] ([facility]) [address] [place], [address], 04/03/2023 10:14:16 08/07/20 23 08/07/2023 urina lysis , dipst ick Leukocytes (reference range) trace Not Available [facility] [address] [place] [address], [address], 08/07/2023 15:15:15 08/07/20 23 08/07/2023 urina lysis , dipst ick Nitrite (reference range:) negati ve Not Available [facility] [address] [place] [address], [address], 08/07/2023 15:15:15 08/07/2008/07/2023 urina lysis , dipst ick Urobilinogen (reference range) 0.2 Not Available [facility] [address] [place] [address] [address], [place], [address], 08/07/2023 15:15:15 08/07/2008/07/2023 urina lysis , dipst ick Protein (reference range) negati ve Not Available [facility] [address] [place] [address] [address], [place], [address], 08/07/2023 15:15:15 08/07/2008/07/2023 urina lysis , dipst ick pH (reference range 5-8.5) 6.0 Not Available [facility] [address] [place] [address] [address], [place], [address], 08/07/2023 15:15:15 08/07/2008/07/2023 urina lysis , dipst ick Blood (reference range:) small Not Available [facility] [address] [place] [address] [address], [place], [address], 08/07/2023 15:15:15 08/07/2008/07/2023 urina lysis , dipst ick Specific [place] (reference range) 1.015 Not Available [facility] [address] [place] [address] [address], [place], [address], 08/07/2023 15:15:15 08/07/2008/07/2023 urina lysis , dipst ick Ketone (reference range) negati ve Not Available [facility] [address] [place] [address] [address], [place], [address], 08/07/2023 15:15:15 08/07/2008/07/2023 urina lysis , dipst ick Bilirubin (reference range) negati ve Not Available [facility] [address], [place], [address], 08/07/2023 15:15:15 08/07/2008/07/2023 urina lysis , dipst ick Glucose (reference range) [address] [facility] [address] [facility] [address], [place], [address], 08/07/2023 15:15:15 08/07/2008/07/2023 urina lysis , dipst ick Color (reference range: yellow-brown ) Yellow Not Available [facility] [address] [facility] [address], [place], [address], 08/07/2023 15:15:15 02/24/20 25 02/23/2025 CBC AUTO W DIFF WBC 11.3 K/uL 4.0-10 .5 high Not Available [facility] ([facility]) [address] [facility], [place], [address], 02/23/2025 15:02:28 02/24/20 25 02/23/2025 CBC AUTO W DIFF RBC 5.7 M/mm3 4.2-6. 4 Not Available [facility] ([facility]) [address] [facility], [place], [address], 02/23/2025 15:02:28 02/24/20 25 02/23/2025 CBC AUTO W DIFF HGB 15.8 gm/dL 12.5-1 6.0 Not Available [facility] ([facility]) [address] [place], [address], 02/23/2025 15:02:28 02/24/20 25 02/23/2025 CBC AUTO W DIFF HCT 48.8 % 37.0-4 7.0 high Not Available [facility] ([facility]) [address] [place], [address], 02/23/2025 15:02:28 02/24/20 25 02/23/2025 CBC AUTO W DIFF MCV 86.4 fL 78-100 Not Available [facility] ([facility]) [address] , [place], [address], 02/23/2025 15:02:28 02/24/20 25 02/23/2025 CBC AUTO W DIFF MCH 28.0 pg 27-31 Not Available [facility] ([facility]) [address] , [place], [address], 02/23/2025 15:02:28 02/24/20 25 02/23/2025 CBC AUTO W DIFF MCHC 32.4 g/dL 32-36 Not Available [facility] ([facility]) [address], [place], [address], 02/23/2025 15:02:28 02/24/20 25 02/23/2025 CBC AUTO W DIFF RDW 13.7 % 11.5-1 4.0 Not Available [facility] ([facility]) [address] , [place], [address], 02/23/2025 15:02:28 02/24/20 25 02/23/2025 CBC AUTO W DIFF platelet count 380 K/uL 150-45 0 Not Available [facility] ([facility]) [address] , [place], [address], 02/23/2025 15:02:28 02/24/20 25 02/23/2025 CBC AUTO W DIFF MPV 10.3 fL 6-9.5 high Not Available [facility] ([facility]) [address] , [place], [address], 02/23/2025 15:02:28 02/24/20 25 02/23/2025 CBC AUTO W DIFF neutrophil% 66.5 % 43-65 high Not Available [facility] ([facility]) [address] , [place], [address], 02/23/2025 15:02:28 02/24/20 25 02/23/2025 CBC AUTO W DIFF lymphocyte% 24.3 % 20.5-4 5.5 Not Available [facility] ([facility]) [address] , [place], [address], 02/23/2025 15:02:28 02/24/20 25 02/23/2025 CBC AUTO W DIFF monocyte% 6.0 % 5.5-11 .7 Not Available [facility] ([facility]) [address] , [place], [address], 02/23/2025 15:02:28 02/24/20 25 02/23/2025 CBC AUTO W DIFF eosinophil% 2.3 % 0.9-2. 9 Not Available [facility] ([facility]) [address] , [place], [address], 02/23/2025 15:02:28 02/24/20 25 02/23/2025 CBC AUTO W DIFF basophil% 0.6 % 0.2-1. 0 Not Available [facility] ([facility]) [address] , [place], [address], 02/23/2025 15:02:28 02/24/20 25 02/23/2025 CBC AUTO W DIFF immature granulocytes % 0.3 % 0.0-0. 8 Not Available [facility] ([facility]) [address] , [place], [address], 02/23/2025 15:02:28 02/24/20 25 02/23/2025 CBC AUTO W DIFF nucleated red blood cells % 0.0 % Not Available [facility] ([facility]) [address] , [place], [address], 02/23/2025 15:02:28 02/24/20 25 02/23/2025 CBC AUTO W DIFF neutrophil# 7.5 K/uL 2.2-4. 8 high Not Available [facility] ([facility]) [address] [facility], [place], [address], 02/23/2025 15:02:28 02/24/20 25 02/23/2025 CBC AUTO W DIFF lymphocyte# 2.7 cell/ mcL 1.3-2. 9 Not Available [facility] ([facility]) [address] [facility], [place], [address], 02/23/2025 15:02:28 02/24/20 25 02/23/2025 CBC AUTO W DIFF monocyte# 0.7 cell/ mcL 0.3-0. 8 Not Available [facility] ([facility]) [address] [facility], [place], [address], 02/23/2025 15:02:28 02/24/20 25 02/23/2025 CBC AUTO W DIFF eosinophil# 0.3 cell/ mcL 0-0.2 high Not Available [facility] ([facility]) [address] [facility], [place], [address], 02/23/2025 15:02:28 02/24/20 25 02/23/2025 CBC AUTO W DIFF basophil# 0.1 cell/ mcL 0.0-1. 0 Not Available [facility] ([facility]) [address] [place], [address], 02/23/2025 15:02:28 02/24/20 25 02/23/2025 CBC AUTO W DIFF immature gramulocytes # 0.03 K/uL Not Available [facility] ([facility]) [address] [place], [address], 02/23/2025 15:02:28 02/24/20 25 02/23/2025 CBC AUTO W DIFF nucleated red blood cells # 0.00 K/uL Not Available [facility] ([facility]) [address] [place], [address], 02/23/2025 15:02:28 02/24/20 25 02/23/2025 CBC AUTO W DIFF manual differential NO Not Available [facility] ([facility]) [address] , [place], [address], 02/23/2025 15:02:28 02/24/20 25 02/23/2025 COMP METAB OLIC PANEL sodium 138 mmol/ L 136-14 5 Not Available [facility] ([facility]) [address] , [place], [address], 02/23/2025 15:39:03 02/24/20 25 02/23/2025 COMP METAB OLIC PANEL potassium 3.7 mmol/ L 3.6-5. 0 Not Available [facility] ([facility]) [address] , [place], [address], 02/23/2025 15:39:03 02/24/20 25 02/23/2025 COMP METAB OLIC PANEL chloride 98 mmol/ L 98-107 Not Available [facility] ([facility]) [address] , [place], [address], 02/23/2025 15:39:03 02/24/20 25 02/23/2025 COMP METAB OLIC PANEL carbon dioxide 26.8 mmol/ L 21.0-3 2.0 Not Available [facility] ([facility]) [address] , [place], [address], 02/23/2025 15:39:03 02/24/20 25 02/23/2025 COMP METAB OLIC PANEL anion gap 16.9 Not Available [facility] ([facility]) [address] , [place], [address], 02/23/2025 15:39:03 02/24/20 25 02/23/2025 COMP METAB OLIC PANEL glucose 200 mg/dL 70-120 high Not Available [facility] ([facility]) [address], [place], [address], 02/23/2025 15:39:03 02/24/20 25 02/23/2025 COMP METAB OLIC PANEL BUN 12 mg/dL 7-18 Not Available [facility] ([facility]) [address], [place], [address], 02/23/2025 15:39:03 02/24/20 25 02/23/2025 COMP METAB OLIC PANEL creatinine 1.1 mg/dL 0.6-1. 3 Not Available [facility] ([facility]) [address], [place], [address], 02/23/2025 15:39:03 02/24/20 25 02/23/2025 COMP METAB [...] brown ing kiney funct ion. Not Available [facility] ([facility]) [address] , [place], [address], 02/23/2025 15:39:03 02/24/20 25 02/23/2025 COMP METAB OLIC PANEL osmolality (calculated) 293 mOsm/ kg 275-30 1 OSMOL ALITY IS A CALCU LATIO N UTILI ZING THE SERUM /PLAS MA SODIU M, GLUCO SE AND UREA NITRO GEN (BUN) LEVEL S. FOR THE MOST ACCUR ATE RESUL T A MEASU RED SERUM OSMOL ALITY IS SUGGE STED. Not Available [facility] ([facility]) [address] , [place], [address], 02/23/2025 15:39:03 02/24/20 25 02/23/2025 COMP METAB OLIC PANEL total protein 8.1 g/dL 6.4-8. 2 Not Available [facility] ([facility]) [address] , [place], [address], 02/23/2025 15:39:03 02/24/20 25 02/23/2025 COMP METAB OLIC PANEL albumin 3.6 g/dL 3.4-5. 0 Not Available [facility] ([facility]) [address], [place], [address], 02/23/2025 15:39:03 02/24/20 25 02/23/2025 COMP METAB OLIC PANEL globulin 4.5 Not Available [facility] ([facility]) [address], [place], [address], 02/23/2025 15:39:03 02/24/20 25 02/23/2025 COMP METAB OLIC PANEL alb/glob ratio 0.8 0.7-2 Not Available [facility] ([facility]) [address] , [place], [address], 02/23/2025 15:39:03 02/24/20 25 02/23/2025 COMP METAB OLIC PANEL calcium 10.2 mg/dL 8.5-10 .5 Not Available [facility] ([facility]) [address] , [place], [address], 02/23/2025 15:39:03 02/24/20 25 02/23/2025 COMP METAB OLIC PANEL bilirubin total 0.60 mg/dL 0.10-1 .00 Not Available [facility] ([facility]) [address], [place], [address], 02/23/2025 15:39:03 02/24/20 25 02/23/2025 COMP METAB OLIC PANEL AST (SGOT) 46 U/L 0-37 high Not Available [facility] ([facility]) [address] , [place], [address], 02/23/2025 15:39:03 02/24/20 25 02/23/2025 COMP METAB OLIC PANEL ALT (SGPT) 78 U/L 0-65 high Not Available [facility] ([facility]) [address], [place], [address], 02/23/2025 15:39:03 02/24/20 25 02/23/2025 COMP METAB OLIC PANEL alk phosphatase 111 U/L 46-116 Not Available [facility] ([facility]) [address], [place], [address], 02/23/2025 15:39:03 02/24/20 25 02/23/2025 C-KARLI CTIVE PROTE IN (CRP) C-reactive protein, quant 2.0 mg/dL 0.05-0 .300 high Not Available [facility] ([facility]) [address], [place], [address], 02/23/2025 15:40:11 02/24/20 25 02/23/2025 SED RATE sed rate auto 9 0-20 Not Available [facility] ([facility]) [address], [place], [address], 02/23/2025 15:43:35 02/24/20 25 02/27/2025 URINE CULTU RE,CO MPREH ENSIV E urine culture,comp rehensive FINAL REPORT abnormal Not Available [facility] ([facility]) [address], [place], [address], 02/27/2025 19:09:52 02/24/20 25 02/27/2025 URINE CULTU [...] ng units per mL Not Available [facility] ([facility]) [address] [facility], [place], [address], 02/27/2025 19:09:52 02/24/20 25 02/27/2025 URINE CULTU [...] as Cefta rolin e Not Available [facility] ([facility]) [address] [facility], [place], [address], 02/27/2025 19:09:52 02/24/20 25 02/27/2025 URINE CULTU [...] Vanco mycin R S Not Available [facility] ([facility]) [address], [place], [address], 02/27/2025 19:09:52 02/24/2002/23/2025 urina lysis , dipst ick Leukocytes (reference range) trace Not Available [facility] [address] [facility] [address], [place], [address], 02/23/2025 14:16:48 02/24/20 25 02/23/2025 urina lysis , dipst ick Nitrite (reference range:) negati ve Not Available [place] [address] [address] [facility] [address], [place], [address], 02/23/2025 14:16:48 02/24/20 25 02/23/2025 urina lysis , dipst ick Urobilinogen (reference range) 0.2 Not Available [facility] [address] [facility] [address], [place], [address], 02/23/2025 14:16:48 02/24/20 25 02/23/2025 urina lysis , dipst ick Protein (reference range) negati ve Not Available [facility] [address] [facility] [address], [place], [address], 02/23/2025 14:16:48 02/24/20 25 02/23/2025 urina lysis , dipst ick pH (reference range 5-8.5) 6.0 Not Available [facility] [address] [facility] [address], [place], [address], 02/23/2025 14:16:48 02/24/20 25 02/23/2025 urina lysis , dipst ick Blood (reference range:) small Not Available [facility] [address] [facility] [address], [place], [address], 02/23/2025 14:16:48 02/24/20 25 02/23/2025 urina lysis , dipst ick Specific [place] (reference range) 1.015 Not Available [place] [address] [address], [place], [address], 02/23/2025 14:16:48 02/24/20 25 02/23/2025 urina lysis , dipst ick Ketone (reference range) negati ve Not Available [place] [address] [address] [facility] [address], [place], [address], 02/23/2025 14:16:48 02/24/20 25 02/23/2025 urina lysis , dipst ick Bilirubin (reference range) negati ve Not Available [place] [address] [address] [facility] [address], [place], [address], 02/23/2025 14:16:48 02/24/20 25 02/23/2025 urina lysis , dipst ick Glucose (reference range) 500 Not Available [place] [address] [address] [facility] [address], [place], [address], 02/23/2025 14:16:48 02/24/20 25 02/23/2025 urina lysis , dipst ick Color (reference range: yellow-brown ) Dark Yellow Not Available [place] [address] [address] [facility] [address], [place], [address], 02/23/2025 14:16:48 Result Notes None recorded. Problems Name Problem SNOMED Code Status Onset Date Resolution Date Notes Provider Name and Address Organization Details Recorded Time Syncope 032352727 Active 2021 Malina Hernandez DO [address] [facility], [place], [address] , [place] [facility] & [place] 15:33:04 [facility] [id number] Active 2021 Malina Hernandez DO [address], [place], [address] , [place] [facility] & [place] 15:34:08 Problem Notes None recorded. Procedures Surgical History Date Name Laterality Status Provider Name and Address Organization Details Recorded Time 09/25/20 23 Cystoscopy-Female completed Silvio Valdez MD [address], [place], [address], [place] [facility] [place] 09/25/2023 15:26:11 04/04/20 22 Date of Last Pap Smear completed Vandana Eugenioa [place] - [facility] & [place] 10/03/2022 14:31:43 10/28/19 22 Nuclear Criticality Safety Engineer Surgery completed Vandana Dalla [place] - [facility] & [place] 10/03/2022 14:45:45 10/28/19 17 Cholecystectomy completed Vandana Dalla [place] 10/03/2022 14:32:27 10/28/19 14 Other completed Vandana Dalla [place] 10/03/2022 14:44:51 cardiac catheterization completed Vandana Dalla [place] 10/03/2022 14:46:31 strabismus surgery completed Vandana Dalla [place] 10/03/2022 14:55:15 Imaging Results None recorded. Procedure Notes None recorded. Medical Equipment None Reported. Allergies Allergen ID Allergen Name Allergen Category Reaction Reaction Severity Criticality Documentation Date Start Date Code Code System Note Provider Name and Address Organization Details Recorded Time 38870 aspirin medicatio n chest pain wheezing moderate severe Not available 10/02/2022 1191 RxNorm Vandana Eugenioa null, [place] & [place] 2 09:22:42 67807 Bactrim medicatio n arthralgi a (joint pain) muscle cramps severe severe Not available 10/02/2022 82117 9 RxNorm Vandana Eugenioa [place], [place] [facility] & [place] 2 09:22:49 39049 insect venom environme nt confusion cough dizziness fever flushing headache wheezing moderate moderate moderate mild moderate moderate moderate Not available 10/02/2022 13133 UNK Vandana catherine, [facility] & [place] 2 09:23:13 68155 Pneumococ georges vaccine Not available anaphylax is chest pain facial swelling nausea rash wheezing moderate moderate moderate moderate moderate moderate Not available 10/02/2022 77344 7 RxNorm [facility] Reed [facility] & [place] 2 09:23:25 89573 rosuvasta tin medicatio n eye swelling facial swelling respirato ry distress moderate moderate moderate Not available 10/02/2022 65455 2 RxNorm Vandana catherine, [facility] DARLING [facility] & [place] 2 09:23:35 Medications Name Sig [...] % 2 L/min 89 /min 48.3 kg/m2 500484. 39 g 128 mm[Hg] 98 mm[Hg] Phillip Prince [place] - [facility] & [place] 3 13:04:48 Date Recorded Body height Body mass index (BMI) Body weight Systolic blood pressure Diastolic blood pressure Provider Name and Address Organization Details Last Updated DateTime 08/07/2023 157.48 cm 49.4 kg/m2 102279.9 4 g 125 mm[Hg] 75 mm[Hg] Britney Yee [place] - [place] [facility] & [place] 3 15:05:24 Date Recorded Body height Body mass index (BMI) Body weight Systolic blood pressure Diastolic blood pressure Provider Name and Address Organization Details Last Updated DateTime 09/25/2023 157.48 cm 51.2 kg/m2 012910.8 6 g 126 mm[Hg] 76 mm[Hg] Ioana Ayala [place] - [facility] & [place] 3 15:07:04 Date Recorded Heart rate Body height Oxygen saturation Oxygen saturation in Arterial blood by Pulse oximetry Heart rate Body temperature Body mass index (BMI) Body weight Systolic blood pressure Diastolic blood pressure Provider Name and Address Organization Details Last Updated DateTime 5 80 /min 160.02 cm 96 % 96 % 80 /min 98.6 [degF] 49.6 kg/m2 024699. 86 g 116 mm[Hg] 100 mm[Hg] Bianca Smith [facility] & [place] 5 13:59:18 Date Recorded Body height Heart rate Oxygen saturation Oxygen saturation in Arterial blood by Pulse oximetry Heart rate Body temperature Body mass index (BMI) Body weight Systolic blood pressure Diastolic blood pressure Provider Name and Address Organization Details Last Updated DateTime 5 160.02 cm 60 /min 97 % 97 % 60 /min 97.7 [degF] 49.6 kg/m2 904875. 86 g 119 mm[Hg] 79 mm[Hg] Bianca Smith RAF[facility] & [place] 5 13:31:54 Social History Question Answer Notes LastModified by InCytu Details LastModified Time Tobacco Smoking Status [facility] [place] 10/03/2022 14:32:09 Do You Have An Advance Directive? No Information not available 10/03/2022 Are You Blind Or Do You Have Difficulty Seeing? No Information not available 10/03/2022 What Was The Date Of Your Most Recent Tobacco Screening? 09/17/2022 Information not available 10/03/2022 Do You Have Any Pets? Yes [email or web address] Information not available 09/25/2023 Are You Passively Exposed To Smoke? No Information not available 10/03/2022 Are You Currently In School? No [employer] [email or web address] Information not available 09/25/2023 Sex: Female Functional Status Question Answer Note LastModified by Siteheart ion Details LastModified Time Do you use any illicit or recreational drugs? No Information not available 10/03/2022 What is your level of alcohol consumption? 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 Occasional Information not available 10/03/2022 Mental Status Question Answer Note LastModified by Organization D etails LastModified Time Do you feel stressed (tense, restless, nervous, or anxious, or unable to sleep at night)? [id number] Information not available 10/03/2022 Family History Relationship [...] Condition Response Kidney Stones Y COPD Y Pneumonia Y Spine Problems Y Autoimmune disease Y Obesity Y Arthritis Y Rheumatoid Arthritis Y Headaches Y Back Problems Y Asthma Y Lung Disease Y Head Injury/Concussion Y High Cholesterol Y GI Problems Y Anemia Y Diabetes Y Congestive Heart Failure (CHF) Y Reflux/GERD Y Hypertension Y Gynecological History [...] SNOMED-CT Code Diagnosis ICD10 Code Diagnosis Note [id number] Malina Hernandez, DO [facility] [address] [facility],[address] [place] [address] 10/03/2022 14:07:23 10/03/2022 15:38:25 Syncope 816020767 R55 She has been experienci ng these stereotypi georges passing out episodes for five years. No definite witnessed convulsion s but some associated brief confusion afterwards .will order EEG to rule out neurologic causes of syncope Hypersomnia 52241861 G47 .10 She describes some significan t episodes of pathologic al sleepiness . She will fall asleep without warning in the middle of talking. This is very infrequent but can be suggestive of narcolepsy . Will order PSG with MSLT to evaluate this in more detail. 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 [id number] Silvio Valdez MD [facility] Urology [address] [place] [address],[address] [place] [address] 08/07/2023 14:35:57 08/07/2023 15:40:17 Recurrent urinary tract infection 750933491 N39.0 Kidney stone 08419399 N2 0.0 Chronic th oracic back pain [id number] 06404 M54.6 Microscopic hematuria 19 1217611 R31.29 [id number] Silvio Valdez MD [facility] [address] [place] [address] [address] [place] [address] 09/25/2023 14:26:57 09/25/2023 15:25:02 Recurrent urinary tract infection 331994391 N39.0 Kidney stone 17674237 N2 0.0 Microscopic hematuria 19 3176293 R31.29 [id number] [facility] [address] [facility] [address] [place] [address] 02/23/2025 13:48:33 02/23/2025 14:17:11 Recurrent urinary tract infection 864288800 N39.0 Will check lab work. Will send urine off for a culture. Will see patient back in 1 week. 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 Patient will follow up in 2 weeks. Call the office if anything persists or worsens. 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 see above Health Concerns Section Related Observation LastModified by Organization Detai ls LastModified Time None Recorded Concern Status LastModified by Organization Details LastModified Time None Recorded Advance Directives Directive N: Payers Insurance Date Sequence Insurance Name Policy Number Policy Valdivia Covered Member ID Valdivia Member ID Guarantor Name 09/18/2023 1 [facility] (POS II) [facility] [id number] [facility] 02/27/2025 1 [facility] (MEDICAID HMO) [facility] [id number] [facility] Notes Date Note Type Note Provider [...] time. 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 Micheline Lackey MD [address] [facility], [place], [address], [place] - [facility] - [place] & [place] 04/18/2023 12:50:43 08/07/2023 text/html Location: Histor y [...] status post hysterectomy. Silvio Valdez MD [address], [place], [address], [facility] - [facility] - [place] & [place] 08/07/2023 15:35:17 09/25/2023 text/html Patient returns to [...] hysterectomy. Silvio Valdez MD [address], [place], [address], [place] [facility] [place] 09/25/2023 15:30:10 02/23/2025 text/html patient presents to [...] in April 2025. Marilou David APRN [address], [place], [address], [place] - [facility] & [place] 02/24/2025 10:59:38 03/02/2025 text/html patient presents to clinic for follow up. Urine culture results received. Patient denies any fever. She is scheduled to have surgery to remove her stone on . Marilou David APRN [address], [place], [address], [place] [facility] & [place] 03/02/2025 13:35:40 OBGyn Episode No OBEpisode recorded.
[2025-03-15] MEDS: ERTAPENEM SODIUM 1 GM in 0.9 % SODIUM CHLORIDE 50 ML IV (10:16)
[2025-03-15] MEDS: SODIUM CHLORIDE 0.9% 50ML BAG 50 ML IV (10:16)
[2025-03-15 10:20] VITALS: BP 128/74; PULSE 77; RESP 18; TEMP 36.7; O2SAT 99
[2025-03-15 10:50] VITALS: BP 124/65; PULSE 77
== END 2025-03-15 11:00 | disposition home or self-care (01) ==
LOC: INF 10:07
PROVIDERS: PCP Internal Medicine; Visit Provider Internal Medicine Adolescent Medicine
DX: A41.9 Sepsis, unspecified organism (principal); R65.21 Severe sepsis with septic shock
CPT/HCPCS: 96365; J1335

== ENCOUNTER 2025-03-16 10:40 | Outpatient (CLI) | payer OTHER, SELFPAY ==
--- OUTSIDE RECORDS SUMMARY | 2025-03-16 10:43 | XMS_ITS | Continuity of Care Document ---
Author Organization [facility] Infectious Disease -105 Address [address] [place] [address] Care Team Providers Care Braid Pattern Setter Name Role Phone ZAHRAA BENAVIDES Primary Care Provider [phone] Assessment No assessment recorded. Plan of Treatment [...] and Address Organization Details Recorded Time Syncope [id number] Active 2021 Malina Hernandez DO [address], [place], [address] , [facility] & [place] 2 15:33:04 Hypersomnia 19351771 Active 2021 Malina Hernandez DO [address], [place], [address] , [facility] & [place] 2 15:34:08 Problem Notes None recorded. Procedures Surgical History Date Name Laterality Status Provider Name and Address Organization Details Recorded Time 09/25/20 23 Cystoscopy-Female completed Silvio Valdez MD [address], [place], [address], [facility] & [place] 09/25/2023 15:26:11 04/04/20 22 Date of Last Pap Smear completed Vandana ELLER - [facility] - [place] & [place] 10/03/2022 14:31:43 10/28/19 22 Privacy Director Surgery completed Vandana ELLER - [facility] & [place] 10/03/2022 14:45:45 10/28/19 17 Cholecystectomy completed Vandana Beckera RAFITA - [facility] - [place] & [place] 10/03/2022 14:32:27 10/28/19 14 Other completed Vandana Beckera RAFITA - [facility] - [place] & [place] 10/03/2022 14:44:51 cardiac catheterization completed Vandana ELLER - [facility] - [place] & [place] 10/03/2022 14:46:31 strabismus surgery completed Vandana ELLER - [facility] & [place] 10/03/2022 14:55:15 Imaging Results None recorded. Procedure Notes None recorded. Medical Equipment None Reported. Allergies Allergen ID Allergen Name Allergen Category Reaction Reaction Severity Criticality Documentation Date Start Date Code Code System Note Provider Name and Address Organization Details Recorded Time 76861 aspirin medicatio n chest pain wheezing moderate severe Not available 10/02/2022 1191 RxNorm Vandana catherine, RAFITA - [facility] & [place] 2 09:22:42 71564 Bactrim medicatio n arthralgi a (joint pain) muscle cramps severe severe Not available 10/02/2022 22687 9 RxNorm Vandana Harris null, [facility] - [facility] & [place] 2 09:22:49 68653 insect venom environme nt confusion cough dizziness fever flushing headache wheezing moderate moderate moderate mild moderate moderate moderate Not available 10/02/2022 95418 UNK Vandana Harris null, [place] - [facility] & [place] 2 09:23:13 47914 Pneumococ georges vaccine Not available anaphylax is chest pain facial swelling nausea rash wheezing moderate moderate moderate moderate moderate moderate Not available 10/02/2022 77887 7 RxNorm Vandana Eugenioa null, [place] - [facility] & [place] 2 09:23:25 30969 rosuvasta tin medicatio n eye swelling facial swelling respirato ry distress moderate moderate moderate Not available 10/02/2022 23721 2 RxNorm Vandana RAFITA [facility] - [place] - [place] & [place] 2 09:23:35 Medications Name Sig [...] % 60 /min 97.7 [degF] 49.6 kg/m2 810431. 86 g 119 mm[Hg] 79 mm[Hg] Bianca Smith [facility] & [place] 13:31:54 Social History Question Answer Notes LastModified by [employer] ion Details LastModified Time Tobacco Smoking Status [...] Are You Currently In School? No MASTERS [email or web address] Information not available 09/25/2023 Sex: Female Functional Status Question Answer Note LastModified by Organizat ion Details LastModified Time Do you use any illicit or recreational drugs? No Information not available 10/03/2022 What is your level of alcohol consumption? 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 Occasional Information not available 10/03/2022 Mental Status Question Answer Note LastModified by Organization D etails LastModified Time Do you feel stressed (tense, restless, nervous, or anxious, or unable to sleep at night)? [id number] Information not available 10/03/2022 Family History Relationship [...] SNOMED-CT Code Diagnosis ICD10 Code Diagnosis Note [id number] [facility] [facility] [facility] [address] [place] [address] 02/23/2025 13:48:33 02/23/2025 14:17:11 Recurrent urinary tract infection 345080150 N39.0 Will check lab work. Will send urine off for a culture. Will see patient back in 1 week. [id number] Marilou [facility]oneyShabb[facility]Christopher [facility] 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 Patient will follow up in 2 weeks. Call the office if anything persists or worsens. 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 Urine culture results received. Patient denies any fever. She is scheduled to have surgery to remove her stone on . Marilou David, SLITTING MACHINE FEEDER [address], [place], [address], [facility] - [place] - [place] & [place] 03/02/2025 13:35:40 OBGyn Episode No OBEpisode recorded.
--- OUTSIDE RECORDS SUMMARY | 2025-03-16 10:44 | XMS_ITS | Data Portability ---
Author Organization [facility] [place] [facility] [place] [facility] [place] Alejandro ADMIN Address [address] [place] [id number] Care Team Providers Care Well Site Drilling Engineer Name Role Phone ZAHRAA BENAVIDES Primary Care Provider [phone] Assessment Encounter Date Assessment Date Assessment LastModified by Organization Details LastModified Time 08/07/2023 08/07/[address] scan images onto our system. Will review to determine the degree of stone burden bilaterally in the kidneys. Will also plan cystoscopy and pelvic exam in the office in the near future. [email or web address] Not available 08/07/2023 15:34:46 09/25/2023 09/25/2023 I [...] in 6 months with KUB and UA. [email or web address] Not available 09/25/2023 15:29:09 Plan of Treatment Reminders Order Date Submit Date Provider Last Modified By Organization Details Last Modified Time Details Appointments Establish ed Visit 15 min 2024 01:45P M Marilou nation APRN Not available Not available Not available Lab urinalysi s, dipstick [address] [facility], [address], [place], [address], 02/23/2025 14:18:52 CBC w/ diff 2024 025 [facility] (Registration ), [address] [facility], [place], [address], 02/23/2025 16:11:55 CMP, serum or plasma 2024 025 [facility] (Registration ), [address] [facility], [place], [address], 02/23/2025 15:39:03 ESR (erythroc yte sedimenta tion rate), blood [address] (Registration ), [address] [facility], [place], [address], 03/09/2025 08:54:47 C-reactiv e protein, quantitat estefania, serum or plasma [address] (Registration ), [address] [facility], [place], [address], 03/09/2025 08:54:48 culture, urine 2024 025 CLE ELUM [facility], [address], [address], [place], [address], 02/27/2025 19:09:52 urinalysi s, dipstick 2022 023 [email or web address] [facility], [address] [facility], [address], [place], [address], 08/07/2023 16:08:29 Referral None recorded. Procedures None [...] usal 7.7 - 58.5 Perfo rmed at: [address] [address] Lab Direc tor: Los carson PhD, Phone : [phone] Not Available [facility] ([facility]) [address] [place], [address], 04/03/2023 10:13:10 04/02/20 23 04/03/2023 FSH FSH, serum 5.4 mIU/m L Adult Femal e: Folli cular phase 3.5 - 12.5 Ovula tion phase 4.7 - 21.5 Lutea l phase 1.7 - 7.7 Postm enopa usal 25.8 - 134.8 Perfo rmed at: [address] [address] Lab Direc tor: Los carson PhD, Phone : [phone] Not Available [facility] ([facility]) [address] [place], [address], 04/03/2023 10:14:16 08/07/20 23 08/07/2023 urina lysis , dipst ick Leukocytes (reference range) trace Not Available [facility] [address] [place] [address], [address], 08/07/2023 15:15:15 08/07/20 23 08/07/2023 urina lysis , dipst ick Nitrite (reference range:) negati ve Not Available [facility] [address] [place] [address], [address], 08/07/2023 15:15:15 08/07/2008/07/2023 urina lysis , dipst ick Urobilinogen (reference range) 0.[address] [facility] [address] [place] [address] [address], [place], [address], 08/07/2023 15:15:15 08/07/2008/07/2023 urina lysis , dipst ick Protein (reference range) negati ve Not Available [facility] [address] [place] [address] [address], [place], [address], 08/07/2023 15:15:15 08/07/2008/07/2023 urina lysis , dipst ick pH (reference range 5-8.5) 6.0 Not Available [facility] [address] [place] [address] [address], [place], [address], 08/07/2023 15:15:15 08/07/2008/07/2023 urina lysis , dipst ick Blood (reference range:) small Not Available [facility] [address] [place] [address] [address], [place], [address], 08/07/2023 15:15:15 08/07/2008/07/2023 urina lysis , dipst ick Specific [place] (reference range) 1.[address] [facility] [address] [place] [address] [address], [place], [address], 08/07/2023 15:15:15 08/07/2008/07/2023 urina lysis , dipst ick Ketone (reference range) negati ve Not Available [facility] [address] [place] [address] [address], [place], [address], 08/07/2023 15:15:15 08/07/2008/07/2023 urina lysis , dipst ick Bilirubin (reference range) negati ve Not Available [facility] [address], [place], [address], 08/07/2023 15:15:15 08/07/2008/07/2023 urina lysis , dipst ick Glucose (reference range) 250 Not Available [facility] [address] [facility] [address], [place], [address], 08/07/2023 15:15:15 08/07/2008/07/2023 urina lysis , dipst ick Color (reference range: yellow-brown ) Yellow Not Available [facility] [address] [facility] [address], [place], [address], 08/07/2023 15:15:15 02/24/20 25 02/23/2025 CBC AUTO W DIFF WBC 11.3 K/uL 4.0-10 .5 high Not Available [facility] ([facility]) [address] [facility], [place], [address], 02/23/2025 15:02:28 02/24/20 25 02/23/2025 CBC AUTO W DIFF RBC 5.7 M/mm3 4.2-6. 4 Not Available [facility] ([facility]) [address] [facility], [place], [address], 02/23/2025 15:02:28 02/24/20 25 02/23/2025 CBC AUTO W DIFF HGB 15.8 gm/dL 12.5-1 6.0 Not Available [facility] ([facility]) [address] [place], [address], 02/23/2025 15:02:28 02/24/20 25 02/23/2025 CBC AUTO W DIFF HCT 48.8 % 37.0-4 7.0 high Not Available [facility] ([facility]) [address] [place], [address], 02/23/2025 15:02:28 02/24/20 25 02/23/2025 CBC AUTO W DIFF MCV 86.4 fL 78-100 Not Available [facility] ([facility]) [address] , [place], [address], 02/23/2025 15:02:28 02/24/20 25 02/23/2025 CBC AUTO W DIFF MCH 28.0 pg 27-31 Not Available [facility] ([facility]) [address] , [place], [address], 02/23/2025 15:02:28 02/24/20 25 02/23/2025 CBC AUTO W DIFF MCHC 32.4 g/dL 32-36 Not Available [facility] ([facility]) [address], [place], [address], 02/23/2025 15:02:28 02/24/20 25 02/23/2025 CBC AUTO W DIFF RDW 13.7 % 11.5-1 4.0 Not Available [facility] ([facility]) [address] , [place], [address], 02/23/2025 15:02:28 02/24/20 25 02/23/2025 CBC AUTO W DIFF platelet count 380 K/uL 150-45 0 Not Available [facility] ([facility]) [address] , [place], [address], 02/23/2025 15:02:28 02/24/20 25 02/23/2025 CBC AUTO W DIFF MPV 10.3 fL 6-9.5 high Not Available [facility] ([facility]) [address] , [place], [address], 02/23/2025 15:02:28 02/24/20 25 02/23/2025 CBC AUTO W DIFF neutrophil% 66.5 % 43-65 high Not Available [facility] ([facility]) [address] , [place], [address], 02/23/2025 15:02:28 02/24/20 25 02/23/2025 CBC AUTO W DIFF lymphocyte% 24.3 % 20.5-4 5.5 Not Available [facility] ([facility]) [address] , [place], [address], 02/23/2025 15:02:28 02/24/20 25 02/23/2025 CBC AUTO W DIFF monocyte% 6.0 % 5.5-11 .7 Not Available [facility] ([facility]) [address] , [place], [address], 02/23/2025 15:02:28 02/24/20 25 02/23/2025 CBC AUTO W DIFF eosinophil% 2.3 % 0.9-2. 9 Not Available [facility] ([facility]) [address] , [place], [address], 02/23/2025 15:02:28 02/24/20 25 02/23/2025 CBC AUTO W DIFF basophil% 0.6 % 0.2-1. 0 Not Available [facility] ([facility]) [address] , [place], [address], 02/23/2025 15:02:28 02/24/20 25 02/23/2025 CBC AUTO W DIFF immature granulocytes % 0.3 % 0.0-0. 8 Not Available [facility] ([facility]) [address] , [place], [address], 02/23/2025 15:02:28 02/24/20 25 02/23/2025 CBC AUTO W DIFF nucleated red blood cells % 0.0 % Not Available [facility] ([facility]) [address] , [place], [address], 02/23/2025 15:02:28 02/24/20 25 02/23/2025 CBC AUTO W DIFF neutrophil# 7.5 K/uL 2.2-4. 8 high Not Available [facility] ([facility]) [address] [facility], [place], [address], 02/23/2025 15:02:28 02/24/20 25 02/23/2025 CBC AUTO W DIFF lymphocyte# 2.7 cell/ mcL 1.3-2. 9 Not Available [facility] ([facility]) [address] [facility], [place], [address], 02/23/2025 15:02:28 02/24/20 25 02/23/2025 CBC AUTO W DIFF monocyte# 0.7 cell/ mcL 0.3-0. 8 Not Available [facility] ([facility]) [address] [facility], [place], [address], 02/23/2025 15:02:28 02/24/20 25 02/23/2025 CBC AUTO W DIFF eosinophil# 0.3 cell/ mcL 0-0.2 high Not Available [facility] ([facility]) [address] [facility], [place], [address], 02/23/2025 15:02:28 02/24/20 25 02/23/2025 CBC AUTO W DIFF basophil# 0.1 cell/ mcL 0.0-1. 0 Not Available [facility] ([facility]) [address] [place], [address], 02/23/2025 15:02:28 02/24/20 25 02/23/2025 CBC AUTO W DIFF immature gramulocytes # 0.03 K/uL Not Available [facility] ([facility]) [address] [place], [address], 02/23/2025 15:02:28 02/24/20 25 02/23/2025 CBC AUTO W DIFF nucleated red blood cells # 0.00 K/uL Not Available [facility] ([facility]) [address] [place], [address], 02/23/2025 15:02:28 02/24/20 25 02/23/2025 CBC AUTO W DIFF manual differential NO Not Available [facility] ([facility]) [address] , [place], [address], 02/23/2025 15:02:28 02/24/20 25 02/23/2025 COMP METAB OLIC PANEL sodium 138 mmol/ L 136-14 5 Not Available [facility] ([facility]) [address] , [place], [address], 02/23/2025 15:39:03 02/24/20 25 02/23/2025 COMP METAB OLIC PANEL potassium 3.7 mmol/ L 3.6-5. 0 Not Available [facility] ([facility]) [address] , [place], [address], 02/23/2025 15:39:03 02/24/20 25 02/23/2025 COMP METAB OLIC PANEL chloride 98 mmol/ L 98-107 Not Available [facility] ([facility]) [address] , [place], [address], 02/23/2025 15:39:03 02/24/20 25 02/23/2025 COMP METAB OLIC PANEL carbon dioxide 26.8 mmol/ L 21.0-3 2.0 Not Available [facility] ([facility]) [address] , [place], [address], 02/23/2025 15:39:03 02/24/20 25 02/23/2025 COMP METAB OLIC PANEL anion gap 16.9 Not Available [facility] ([facility]) [address] , [place], [address], 02/23/2025 15:39:03 02/24/20 25 02/23/2025 COMP METAB OLIC PANEL glucose 200 mg/dL 70-120 high Not Available [facility] ([facility]) [address], [place], [address], 02/23/2025 15:39:03 02/24/20 25 02/23/2025 COMP METAB OLIC PANEL BUN 12 mg/dL 7-18 Not Available [facility] ([facility]) [address], [place], [address], 02/23/2025 15:39:03 02/24/20 25 02/23/2025 COMP METAB OLIC PANEL creatinine 1.1 mg/dL 0.6-1. 3 Not Available [facility] ([facility]) [address], [place], [address], 02/23/2025 15:39:03 02/24/20 25 02/23/2025 COMP METAB [...] brown ing kiney funct ion. Not Available [facility] ([facility]) [address] , [place], [address], 02/23/2025 15:39:03 02/24/20 25 02/23/2025 COMP METAB OLIC PANEL osmolality (calculated) 293 mOsm/ kg 275-30 1 OSMOL ALITY IS A CALCU LATIO N UTILI ZING THE SERUM /PLAS MA SODIU M, GLUCO SE AND UREA NITRO GEN (BUN) LEVEL S. FOR THE MOST ACCUR ATE RESUL T A MEASU RED SERUM OSMOL ALITY IS SUGGE STED. Not Available [facility] ([facility]) [address] , [place], [address], 02/23/2025 15:39:03 02/24/20 25 02/23/2025 COMP METAB OLIC PANEL total protein 8.1 g/dL 6.4-8. 2 Not Available [facility] ([facility]) [address] , [place], [address], 02/23/2025 15:39:03 02/24/20 25 02/23/2025 COMP METAB OLIC PANEL albumin 3.6 g/dL 3.4-5. 0 Not Available [facility] ([facility]) [address], [place], [address], 02/23/2025 15:39:03 02/24/20 25 02/23/2025 COMP METAB OLIC PANEL globulin 4.5 Not Available [facility] ([facility]) [address], [place], [address], 02/23/2025 15:39:03 02/24/20 25 02/23/2025 COMP METAB OLIC PANEL alb/glob ratio 0.8 0.7-2 Not Available [facility] ([facility]) [address] , [place], [address], 02/23/2025 15:39:03 02/24/20 25 02/23/2025 COMP METAB OLIC PANEL calcium 10.2 mg/dL 8.5-10 .5 Not Available [facility] ([facility]) [address] , [place], [address], 02/23/2025 15:39:03 02/24/20 25 02/23/2025 COMP METAB OLIC PANEL bilirubin total 0.60 mg/dL 0.10-1 .00 Not Available [facility] ([facility]) [address], [place], [address], 02/23/2025 15:39:03 02/24/20 25 02/23/2025 COMP METAB OLIC PANEL AST (SGOT) 46 U/L 0-37 high Not Available [facility] ([facility]) [address] , [place], [address], 02/23/2025 15:39:03 02/24/20 25 02/23/2025 COMP METAB OLIC PANEL ALT (SGPT) 78 U/L 0-65 high Not Available [facility] ([facility]) [address], [place], [address], 02/23/2025 15:39:03 02/24/20 25 02/23/2025 COMP METAB OLIC PANEL alk phosphatase 111 U/L 46-116 Not Available [facility] ([facility]) [address], [place], [address], 02/23/2025 15:39:03 02/24/20 25 02/23/2025 C-KARLI CTIVE PROTE IN (CRP) C-reactive protein, quant 2.0 mg/dL 0.05-0 .300 high Not Available [facility] ([facility]) [address], [place], [address], 02/23/2025 15:40:11 02/24/20 25 02/23/2025 SED RATE sed rate auto 9 0-20 Not Available [facility] ([facility]) [address], [place], [address], 02/23/2025 15:43:35 02/24/20 25 02/27/2025 URINE CULTU RE,CO MPREH ENSIV E urine culture,comp rehensive FINAL REPORT abnormal Not Available [facility] ([facility]) [address], [place], [address], 02/27/2025 19:09:52 02/24/20 25 02/27/2025 URINE CULTU [...] ng units per mL Not Available [facility] ([facility]) [address] [facility], [place], [address], 02/27/2025 19:09:52 02/24/20 25 02/27/2025 URINE CULTU [...] as Cefta rolin e Not Available [facility] ([facility]) [address] [facility], [place], [address], 02/27/2025 19:09:52 02/24/20 25 02/27/2025 URINE CULTU [...] Vanco mycin R S Not Available [facility] ([facility]) [address], [place], [address], 02/27/2025 19:09:52 02/24/2002/23/2025 urina lysis , dipst ick Leukocytes (reference range) trace Not Available [facility] [address] [facility] [address], [place], [address], 02/23/2025 14:16:48 02/24/20 25 02/23/2025 urina lysis , dipst ick Nitrite (reference range:) negati ve Not Available [place] [address] [address] [facility] [address], [place], [address], 02/23/2025 14:16:48 02/24/20 25 02/23/2025 urina lysis , dipst ick Urobilinogen (reference range) 0.[address] [facility] [address] [facility] [address], [place], [address], 02/23/2025 14:16:48 02/24/20 25 02/23/2025 urina lysis , dipst ick Protein (reference range) negati ve Not Available [facility] [address] [facility] [address], [place], [address], 02/23/2025 14:16:48 02/24/20 25 02/23/2025 urina lysis , dipst ick pH (reference range 5-8.5) 6.0 Not Available [facility] [address] [facility] [address], [place], [address], 02/23/2025 14:16:48 02/24/20 25 02/23/2025 urina lysis , dipst ick Blood (reference range:) small Not Available [facility] [address] [facility] [address], [place], [address], 02/23/2025 14:16:48 02/24/20 25 02/23/2025 urina lysis , dipst ick Specific [place] (reference range) 1.015 Not Available [place] [address], [place], [address], 02/23/2025 14:16:48 02/24/20 25 02/23/2025 urina lysis , dipst ick Ketone (reference range) negati ve Not Available [place] [address] [address] [facility] [address], [place], [address], 02/23/2025 14:16:48 02/24/20 25 02/23/2025 urina lysis , dipst ick Bilirubin (reference range) negati ve Not Available [place] [address] [address] [facility] [address], [place], [address], 02/23/2025 14:16:48 02/24/20 25 02/23/2025 urina lysis , dipst ick Glucose (reference range) 500 Not Available [place] [address] [address] [facility] [address], [place], [address], 02/23/2025 14:16:48 02/24/20 25 02/23/2025 urina lysis , dipst ick Color (reference range: yellow-brown ) Dark Yellow Not Available [place] [address] [address] [facility] [address], [place], [address], 02/23/2025 14:16:48 Result Notes None recorded. Problems Name Problem SNOMED Code Status Onset Date Resolution Date Notes Provider Name and Address Organization Details Recorded Time Syncope 642965248 Active 2021 Malina Hernandez DO [address] [facility], [place], [address] , [place] - [facility] & [place] 15:33:04 [facility] 75462929 Active 2021 Malina Hernandez DO [address], [place], [address] , [place] - [facility] [place] & [place] 15:34:08 Problem Notes None recorded. Procedures Surgical History Date Name Laterality Status Provider Name and Address Organization Details Recorded Time 09/25/20 23 Cystoscopy-Female completed Silvio Valdez MD [address], [place], [address], [place] - [facility] [place] & [place] 09/25/2023 15:26:11 04/04/20 22 Date of Last Pap Smear completed Vandana Eugenioa [place] - [facility] [place] & [place] 10/03/2022 14:31:43 10/28/19 22 Md Psychiatry Surgery completed Vandana Dalla [place] - [facility] [place] & [place] 10/03/2022 14:45:45 10/28/19 17 Cholecystectomy completed Vandana Dalla [place] [facility] [place] 10/03/2022 14:32:27 10/28/19 14 Other completed Vandana Dalla [place] [facility] [place] 10/03/2022 14:44:51 cardiac catheterization completed Vandana Dalla [place] - [facility] [place] 10/03/2022 14:46:31 strabismus surgery completed Vandana Dalla [place] - [facility] [place] 10/03/2022 14:55:15 Imaging Results None recorded. Procedure Notes None recorded. Medical Equipment None Reported. Allergies Allergen ID Allergen Name Allergen Category Reaction Reaction Severity Criticality Documentation Date Start Date Code Code System Note Provider Name and Address Organization Details Recorded Time 46225 aspirin medicatio n chest pain wheezing moderate severe Not available 10/02/2022 1191 RxNorm Vandana Eugenioa null, [place] [facility] [place] & [place] 2 09:22:42 75431 Bactrim medicatio n arthralgi a (joint pain) muscle cramps severe severe Not available 10/02/2022 84975 9 RxNorm Vandana Eugenioa null, [place] - [facility] [place] & [place] 2 09:22:49 29050 insect venom environme nt confusion cough dizziness fever flushing headache wheezing moderate moderate moderate mild moderate moderate moderate Not available 10/02/2022 99698 UNK Vandana catherine, [facility] & [place] 2 09:23:13 91309 Pneumococ georges vaccine Not available anaphylax is chest pain facial swelling nausea rash wheezing moderate moderate moderate moderate moderate moderate Not available 10/02/2022 91701 7 RxNorm RAFITA Reed [facility] & [place] 2 09:23:25 73457 rosuvasta tin medicatio n eye swelling facial swelling respirato ry distress moderate moderate moderate Not available 10/02/2022 80655 2 RxNorm Vandana catherine, RFAITA DAR[facility] & [place] 2 09:23:35 Medications Name Sig [...] % 2 L/min 89 /min 48.3 kg/m2 807200. 39 g 128 mm[Hg] 98 mm[Hg] Phillip Prince MS - [facility] & [place] 3 13:04:48 Date Recorded Body height Body mass index (BMI) Body weight Systolic blood pressure Diastolic blood pressure Provider Name and Address Organization Details Last Updated DateTime 08/07/2023 157.48 cm 49.4 kg/m2 951995.9 4 g 125 mm[Hg] 75 mm[Hg] Britney Yee [place] - [facility] & [place] 3 15:05:24 Date Recorded Body height Body mass index (BMI) Body weight Systolic blood pressure Diastolic blood pressure Provider Name and Address Organization Details Last Updated DateTime 09/25/2023 157.48 cm 51.2 kg/m2 861373.8 6 g 126 mm[Hg] 76 mm[Hg] Ioana Ayala MS - [facility] & [place] 3 15:07:04 Date Recorded Heart rate Body height Oxygen saturation Oxygen saturation in Arterial blood by Pulse oximetry Heart rate Body temperature Body mass index (BMI) Body weight Systolic blood pressure Diastolic blood pressure Provider Name and Address Organization Details Last Updated DateTime 5 80 /min 160.02 cm 96 % 96 % 80 /min 98.6 [degF] 49.6 kg/m2 662954. 86 g 116 mm[Hg] 100 mm[Hg] Bianca Smith [facility] & [place] 5 13:59:18 Date Recorded Body height Heart rate Oxygen saturation Oxygen saturation in Arterial blood by Pulse oximetry Heart rate Body temperature Body mass index (BMI) Body weight Systolic blood pressure Diastolic blood pressure Provider Name and Address Organization Details Last Updated DateTime 5 160.02 cm 60 /min 97 % 97 % 60 /min 97.7 [degF] 49.6 kg/m2 390989. 86 g 119 mm[Hg] 79 mm[Hg] Biacna Smith [facility] & [place] 5 13:31:54 Social History Question Answer Notes LastModified by [employer] Details LastModified Time Tobacco Smoking Status Never [facility] [place] 10/03/2022 14:32:09 Do [...] Are You Currently In School? No MASTERS [email or web address] Information not available 09/25/2023 Sex: Female Functional Status Question Answer Note LastModified by [facility] ion Details LastModified Time Do you use any illicit or recreational drugs? No Information not available 10/03/2022 What is your level of alcohol consumption? 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 Occasional Information not available 10/03/2022 Mental Status Question Answer Note LastModified by Organization D etails LastModified Time Do you feel stressed (tense, restless, nervous, or anxious, or unable to sleep at night)? [id number] Information not available 10/03/2022 Family History Relationship [...] SNOMED-CT Code Diagnosis ICD10 Code Diagnosis Note [id number] Malina Hernandez, DO [facility] [address] [facility],[address] [place] [address] 10/03/2022 14:07:23 10/03/2022 15:38:25 Syncope [id number] R55 She has been experienci ng these stereotypi georges passing out episodes for five years. No definite witnessed convulsion s but some associated brief confusion afterwards .will order EEG to rule out neurologic causes of syncope Hypersomnia 56700034 G47 .10 She describes some significan t episodes of pathologic al sleepiness . She will fall asleep without warning in the middle of talking. This is very infrequent but can be suggestive of narcolepsy . Will order PSG with MSLT to evaluate this in more detail. [id number] Micheline Lackey MD [facility] [address] [place] [address],[address] [place] [address] 04/02/2023 12:53:55 04/02/2023 13:53:12 Pelvic mass 48929520 R19.00 Possible lymphocele versus ovarian remnant from [...] patient with lab levels and consider further CUFF RUNNER follow up. [id number] Silvio Valdez MD [facility] [address] [place] [address],[address] [place] [address] 08/07/2023 14:35:57 08/07/2023 15:40:17 Recurrent urinary tract infection 304099180 N39.0 Kidney stone 15525425 N2 0.0 Chronic th oracic back pain 5861216564 87670 M54.6 Microscopic hematuria 19 0082104 R31.29 [id number] Silvio Valdez MD [facility] [address] [place] [address] [address] [place] [address] 09/25/2023 14:26:57 09/25/2023 15:25:02 Recurrent urinary tract infection 689263838 N39.0 Kidney stone 55523296 N2 0.0 Microscopic hematuria 19 7273590 R31.29 [id number] [facility] [address] [facility] [address] [place] [address] 02/23/2025 13:48:33 02/23/2025 14:17:11 Recurrent urinary tract infection 678575647 N39.0 Will check lab work. Will send urine off for a culture. Will see patient back in 1 week. 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 Patient will follow up in 2 weeks. Call the office if anything persists or worsens. 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 see above Health Concerns Section Related Observation LastModified by Organization Detai ls LastModified Time None Recorded Concern Status LastModified by Organization Details LastModified Time None Recorded Advance Directives Directive N: Payers Insurance Date Sequence Insurance Name Policy Number Policy Valdivia Covered Member ID Valdivia Member ID Guarantor Name 09/18/2023 1 [facility] (POS II) [facility] [id number] [facility] 02/27/2025 1 [facility] (MEDICAID HMO) [facility] [id number] [facility] Notes Date Note Type Note Provider [...] time. Patient states she is seen her observation assistant for this, was told it is possibly a lymphocele. Micheline Lackey MD [address] [facility], [place], [address], [place] - [facility] - [place] & [place] 04/18/2023 12:50:43 08/07/2023 text/html Location: [...] status post hysterectomy. Silvio Valdez MD [address], [place], [address], [facility] - [facility] - [place] & [place] 08/07/2023 15:35:17 09/25/2023 text/html Patient [...] hysterectomy. Silvio Valdez MD [address], [place], [address], [place] [facility] [place] 09/25/2023 15:30:10 02/23/2025 text/html patient presents to [...] 2025. Marilou David APRN [address], [place], [address], [place] - [facility] & [place] 02/24/2025 10:59:38 03/02/2025 text/html patient presents to clinic for follow up. Urine culture results received. Patient denies any fever. She is scheduled to have surgery to remove her stone on . Marilou David APRN [address], [place], [address], [place] - [facility] & [place] 03/02/2025 13:35:40 OBGyn Episode No OBEpisode recorded.
[2025-03-16 10:50] VITALS: BP 110/73; PULSE 68; RESP 16; TEMP 36.7; O2SAT 98
[2025-03-16] MEDS: SODIUM CHLORIDE 0.9% 10ML FLUSH SYRINGE 10 ML IV (10:50)
[2025-03-16] MEDS: ERTAPENEM SODIUM 1 GM in 0.9 % SODIUM CHLORIDE 50 ML IV (10:50)
[2025-03-16] MEDS: SODIUM CHLORIDE 0.9% 50ML BAG 50 ML IV (10:50)
[2025-03-16 11:30] VITALS: BP 105/65; PULSE 69; RESP 16; TEMP 36.7; O2SAT 98
== END 2025-03-16 11:35 | disposition home or self-care (01) ==
LOC: INF 10:41
PROVIDERS: PCP Internal Medicine; Visit Provider Internal Medicine Adolescent Medicine
DX: A41.9 Sepsis, unspecified organism (principal); N39.0 Urinary tract infection, site not specified
CPT/HCPCS: 96365; J1335

== ENCOUNTER 2025-03-17 12:47 | Outpatient (CLI) | payer OTHER, SELFPAY ==
--- OUTSIDE RECORDS SUMMARY | 2025-03-17 12:51 | XMS_ITS | Continuity of Care Document ---
Author Organization [facility] Infectious Disease -105 Address [address] [place] [address] Care Team Providers Care Tone Regulator Name Role Phone ZAHRAA BENAVIDES Primary Care Provider [phone] Assessment No assessment recorded. Plan of Treatment [...] and Address Organization Details Recorded Time Syncope 633613848 Active 2021 Malina Hernandez DO [address], [place], [address] , [facility] & [place] 2 15:33:04 Hypersomnia 27064834 Active 2021 Malina Hernandez DO [address], [place], [address] , [facility] & [place] 2 15:34:08 Problem Notes None recorded. Procedures Surgical History Date Name Laterality Status Provider Name and Address Organization Details Recorded Time 09/25/20 23 Cystoscopy-Female completed Silvio Valdez MD [address], [place], [address], [facility] & [place] 09/25/2023 15:26:11 04/04/20 22 Date of Last Pap Smear completed Vandana ELLER - [facility] - [place] & [place] 10/03/2022 14:31:43 10/28/19 22 Client Associate Surgery completed Vandana ELLER - [facility] & [place] 10/03/2022 14:45:45 10/28/19 17 Cholecystectomy completed Vandana Beckera RAFITA - [facility] - [place] & [place] 10/03/2022 14:32:27 10/28/19 14 Other completed Vandana Beckera RAFITA - [facility] - [place] & [place] 10/03/2022 14:44:51 cardiac catheterization completed Vandana ELLER - [facility] - [place] & [place] 10/03/2022 14:46:31 strabismus surgery completed Vnadana ELLER - [facility] & [place] 10/03/2022 14:55:15 Imaging Results None recorded. Procedure Notes None recorded. Medical Equipment None Reported. Allergies Allergen ID Allergen Name Allergen Category Reaction Reaction Severity Criticality Documentation Date Start Date Code Code System Note Provider Name and Address Organization Details Recorded Time 77527 aspirin medicatio n chest pain wheezing moderate severe Not available 10/02/2022 1191 RxNorm Vandana catherine, RAFITA - [facility] & [place] 2 09:22:42 83232 Bactrim medicatio n arthralgi a (joint pain) muscle cramps severe severe Not available 10/02/2022 77441 9 RxNorm Vandana Harris null, RAFITA - [facility] & [place] 2 09:22:49 56514 insect venom environme nt confusion cough dizziness fever flushing headache wheezing moderate moderate moderate mild moderate moderate moderate Not available 10/02/2022 08356 UNK Vandana Harris null, [place] - [facility] & [place] 2 09:23:13 46008 Pneumococ georges vaccine Not available anaphylax is chest pain facial swelling nausea rash wheezing moderate moderate moderate moderate moderate moderate Not available 10/02/2022 60230 7 RxNorm Vandana Eugenioa null, [place] - [facility] & [place] 2 09:23:25 51987 rosuvasta tin medicatio n eye swelling facial swelling respirato ry distress moderate moderate moderate Not available 10/02/2022 06308 2 RxNorm Vandana RAFITA [place] - [place] - [place] & [place] 2 09:23:35 Medications Name Sig Start Date [...] % 60 /min 97.7 [degF] 49.6 kg/m2 236828. 86 g 119 mm[Hg] 79 mm[Hg] Bianca mSith [facility] & [place] 13:31:54 Social History Question Answer Notes LastModified by [facility] ion Details LastModified Time Tobacco Smoking Status [facility] [place] 10/03/2022 14:32:09 Do You Have An Advance Directive? No Information not available 10/03/2022 Are You Blind Or Do You Have Difficulty Seeing? No Information not available 10/03/2022 What Was The Date Of Your Most Recent Tobacco Screening? 09/17/2022 Information not available 10/03/2022 Do You Have Any Pets? Yes [email or web address] Information not available 09/25/2023 Are You Passively Exposed To Smoke? No Information not available 10/03/2022 Are You Currently In School? No MASTERS [email or web address] Information not available 09/25/2023 Sex: Female Functional [...] anxious, or unable to sleep at night)? [id number] Information not available 10/03/2022 Family History Relationship [...] Medical History Condition Response Kidney Stones Y Lung Disease Y COPD Y Pneumonia Y Spine Problems [...] SNOMED-CT Code Diagnosis ICD10 Code Diagnosis Note [id number] [facility]105 [address] [facility] [address] [place] [address] 02/23/2025 13:48:33 02/23/2025 14:17:11 Recurrent urinary tract infection 782190278 N39.0 Will check lab work. Will send urine off for a culture. Will see patient back in 1 week. 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 Patient will follow up in 2 weeks. Call the office if anything persists or worsens. 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 Urine culture results received. Patient denies any fever. She is scheduled to have surgery to remove her stone on . Marilou David, ASSISTANT MANAGER BILINGUAL [address], [place], [address], [facility] - [place] - [place] & [place] 03/02/2025 13:35:40 OBGyn Episode No OBEpisode recorded.
--- OUTSIDE RECORDS SUMMARY | 2025-03-17 12:51 | XMS_ITS | Continuity of Care Document ---
Author Organization [facility] Infectious Disease -[address] [place] [address] Care Team Providers Care Aml Analyst Name Role Phone SHERI BENAVIDESGHT Primary Care Provider Assessment No assessment recorded. Plan of Treatment Reminders Order Date Submit Date Provider Last Modified By Organization Details Last Modified Time Details Appointments Establish ed Visit 15 min 2024 01:45P M Marilou nation APRN Not available Not available Not available Lab urinalysi s, dipstick [address] Infectious Disease -105, [address], [place], [address], 02/23/2025 14:18:52 CBC w/ diff 2024 025 [facility] (Registration ), [address] , [place], [address], 02/23/2025 16:11:55 CMP, serum or plasma 2024 025 [facility] (Registration ), [address] , [place], [address], 02/23/2025 15:39:03 ESR (erythroc yte sedimenta tion rate), blood [address] (Registration ), [address] , [place], [address], 03/09/2025 08:54:47 C-reactiv e protein, quantitat estefania, serum or plasma 2024 025 [email or web address] [facility] (Registration ), [address], [place], [address], 03/09/2025 08:54:48 culture, urine 2024 025 [place] [facility], [address], [address], [place], [address], 02/27/2025 19:09:52 Referral None recorded. Procedures None recorded. Surgeries None recorded. Imaging None recorded. Medication Orders None recorded. Patient TargetsNo targets recorded. Patient InstructionsNo instructions recorded. Reason for Referral None Reported. Results Created Date Observation Date Name Description Value Unit Range Abnormal Flag Note LastModifiedBy Organization Detail LastModifiedTime 02/24/2002/23/2025 urina lysis , dipst ick Leukocytes (reference range) trace Not Available [facility] [address] [facility] [address], [place], [address], 02/23/2025 14:16:48 02/24/20 25 02/23/2025 urina lysis , dipst ick Nitrite (reference range:) negati ve Not Available [facility] Infectious Disease -[facility] [address] [facility] [address], [place], [address], 02/23/2025 14:16:48 02/24/20 25 02/23/2025 urina lysis , dipst ick Urobilinogen (reference range) 0.2 Not Available [facility] Infectious [facility] -105 [address] [facility] [address], [place], [address], 02/23/2025 14:16:48 02/24/20 25 02/23/2025 urina lysis , dipst ick Protein (reference range) negati ve Not Available [facility] Infectious Disease -[facility] [address] [facility] [address], [place], [address], 02/23/2025 14:16:48 02/24/20 25 02/23/2025 urina lysis , dipst ick pH (reference range 5-8.5) 6.0 Not Available [facility] Infectious [facility] -[facility] [address], [place], [address], 02/23/2025 14:16:48 02/24/20 25 02/23/2025 urina lysis , dipst ick Blood (reference range:) small Not Available [place] [address] [address] [facility] [address], [place], [address], 02/23/2025 14:16:48 02/24/20 25 02/23/2025 urina lysis , dipst ick Specific Sterling (reference range) 1.015 Not Available [place] [address] [address] [facility] [address], [place], [address], 02/23/2025 14:16:48 02/24/20 25 02/23/2025 urina lysis , dipst ick Ketone (reference range) negati ve Not Available [place] [address] [address] [facility] [address], [place], [address], 02/23/2025 14:16:48 02/24/20 25 02/23/2025 urina lysis , dipst ick Bilirubin (reference range) negati ve Not Available [place] [address] [address] [facility] [address], [place], [address], 02/23/2025 14:16:48 02/24/20 25 02/23/2025 urina lysis , dipst ick Glucose (reference range) 500 Not Available [place] [address] [address] [facility] [address], [place], [address], 02/23/2025 14:16:48 02/24/20 25 02/23/2025 urina lysis , dipst ick Color (reference range: yellow-brown ) Dark Yellow Not Available [facility] Infectious Disease -[address], [place], [address], 02/23/2025 14:16:48 Result Notes None recorded. Problems Name Problem SNOMED Code Status Onset Date Resolution Date Notes Provider Name and Address Organization Details Recorded Time Syncope 912756635 Active 2021 Malina Hernandez DO [address], [place], [address] , [place] - [facility] - [place] & [place] 15:33:04 Hypersomnia 26206613 Active 2021 Malina Hernandez DO [address], [place], [address] , [place] - [facility] - [place] & [place] 15:34:08 Problem Notes None recorded. Procedures Surgical History Date Name Laterality Status Provider Name and Address Organization Details Recorded Time 09/25/20 23 Cystoscopy-Female completed Silvio Valdez MD [address] [facility], [place], [address], [place] [facility] & [place] 09/25/2023 15:26:11 04/04/20 22 Date of Last Pap Smear completed Vandana Dalla [place] - [facility] - [place] & [place] 10/03/2022 14:31:43 10/28/19 22 Cardiology Nurse Practitioner Surgery completed Vandana Dalla [place] [facility] & [place] 10/03/2022 14:45:45 10/28/19 17 Cholecystectomy completed Vandana Dalla [place] [facility] [place] 10/03/2022 14:32:27 10/28/19 14 Other completed Vandana Dalla [place] [facility] [place] 10/03/2022 14:44:51 cardiac catheterization completed Vandana Dalla [place] - [facility] & [place] 10/03/2022 14:46:31 strabismus surgery completed Vandana Dalla [place] - [facility] & [place] 10/03/2022 14:55:15 Imaging Results None recorded. Procedure Notes None recorded. Medical Equipment None Reported. Allergies Allergen ID Allergen Name Allergen Category Reaction Reaction Severity Criticality Documentation Date Start Date Code Code System Note Provider Name and Address Organization Details Recorded Time 55284 aspirin medicatio n chest pain wheezing moderate severe Not available 10/02/2022 1191 RxNorm RAFITA Reed [facility] & [place] 2 09:22:42 29861 Bactrim medicatio n arthralgi a (joint pain) muscle cramps severe severe Not available 10/02/2022 14173 9 RxNorm RAFITA Reed [facility] & [place] 2 09:22:49 84092 insect venom environme nt confusion cough dizziness fever flushing headache wheezing moderate moderate moderate mild moderate moderate moderate Not available 10/02/2022 33154 UNK RAFITA Reed [facility] & [place] 2 09:23:13 38531 Pneumococ georges vaccine Not available anaphylax is chest pain facial swelling nausea rash wheezing moderate moderate moderate moderate moderate moderate Not available 10/02/2022 49640 7 RxNorm RAFITA Reed [facility] & [place] 2 09:23:25 08691 rosuvasta tin medicatio n eye swelling facial swelling respirato ry distress moderate moderate moderate Not available 10/02/2022 72353 2 RxNorm Vandana catherine, RAFITA LIS[facility] & [place] 2 09:23:35 Medications Name [...] % 80 /min 98.6 [degF] 49.6 kg/m2 083060. 86 g 116 mm[Hg] 100 mm[Hg] Bianca ELLER - [facility] 13:59:18 Social History Question Answer Notes LastModified by Organizat ion Details LastModified Time Tobacco Smoking Status Never Smoker Vandana Beckergodfrey catherine, [place] - [facility] [place] 10/03/2022 14:32:09 Do You Have An Advance Directive? No Information not available 10/03/2022 Are You Blind Or Do You Have Difficulty Seeing? No Information not available 10/03/2022 What Was The Date Of Your Most Recent Tobacco Screening? 09/17/2022 Information not available 10/03/2022 Do You Have Any Pets? Yes [email or web address] Information not available 09/25/2023 Are You Passively Exposed To Smoke? No Information not available 10/03/2022 Are You Currently In School? No MASTERS [email or web address] Information not available 09/25/2023 Sex: Female Functional Status Question Answer Note LastModified by Organizat ion Details LastModified Time Do you use any illicit or recreational drugs? No Information not available 10/03/2022 What is your level of alcohol consumption? 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 Occasional Information not available 10/03/2022 Mental Status Question Answer Note LastModified by Organization D etails LastModified Time Do you feel stressed (tense, restless, nervous, or anxious, or unable to sleep at night)? [id number] Information not available 10/03/2022 Family History Relationship [...] SNOMED-CT Code Diagnosis ICD10 Code Diagnosis Note [id number] Marilou Herbert in, MACHINE ZIPPER TRIMMER [facility] Infectiou s Disease -[address] [place] [address] 02/23/2025 13:48:33 02/23/2025 14:17:11 Recurrent urinary tract infection 511833843 N39.0 Will check lab work. Will send urine off for a culture. Will see patient back in 1 week. Health Concerns Section Related Observation LastModified by Organization Detai ls LastModified Time None Recorded Concern Status LastModified by Organization Details LastModified Time None Recorded Payers Encounter Date Sequence Insurance Name Policy Number Policy Valdivia Covered Member ID Valdivia Member ID Guarantor Name 02/23/2025 1 [facility] (MEDICAID HMO) Lissy Valdez [id number] Lissy Valdez Notes Date Note Type Note [...] with urology in April 2025. Marilou David, MACHINE ZIPPER TRIMMER [address], [place], [address], [facility] - [place] 02/24/2025 10:59:38 OBGyn Episode No OBEpisode recorded.
--- OUTSIDE RECORDS SUMMARY | 2025-03-17 12:51 | XMS_ITS | Data Portability ---
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 Will review to determine the degree of stone burden bilaterally in the kidneys. Will also plan cystoscopy and pelvic exam in the office in the near future. [email or web address] Not available 08/07/2023 15:34:46 09/25/2023 09/25/2023 I [...] in 6 months with KUB and UA. [email or web address] Not available 09/25/2023 15:29:09 Plan of Treatment Reminders Order Date Submit Date Provider Last Modified By Organization Details Last Modified Time Details Appointments Establish ed Visit 15 min 2024 01:45P M Marilou nation APRN Not available Not available Not available Lab urinalysi s, dipstick [address] [facility] -105, [address], [place], [address], 02/23/2025 14:18:52 CBC w/ diff 2024 025 [facility] (Registration ), [address] [facility], [place], [address], 02/23/2025 16:11:55 CMP, serum or plasma 2024 025 [facility] (Registration ), [address] [facility], [place], [address], 02/23/2025 15:39:03 ESR (erythroc yte sedimenta tion rate), blood [address] (Registration ), [address] [facility], [place], [address], 03/09/2025 08:54:47 C-reactiv e protein, quantitat estefania, serum or plasma [address] (Registration ), [address] [facility], [place], [address], 03/09/2025 08:54:48 culture, urine 2024 025 [facility], [address], [address], [place], [address], 02/27/2025 19:09:52 urinalysi s, dipstick 2022 023 [email or web address] [facility], [address] [facility], [address], [place], [address], 08/07/2023 16:08:29 Referral None recorded. Procedures None [...] usal 7.7 - 58.5 Perfo rmed at: [address] [address] Lab Direc tor: Los carson PhD, Phone : [phone] Not Available [facility] ([facility]) [address] [place], [address], 04/03/2023 10:13:10 04/02/20 23 04/03/2023 FSH FSH, serum 5.4 mIU/m L Adult Femal e: Folli cular phase 3.5 - 12.5 Ovula tion phase 4.7 - 21.5 Lutea l phase 1.7 - 7.7 Postm enopa usal 25.8 - 134.8 Perfo rmed at: [address] [address] Lab Direc tor: Los carson PhD, Phone : [phone] Not Available [facility] ([facility]) [address] [place], [address], 04/03/2023 10:14:16 08/07/20 23 08/07/2023 urina lysis , dipst ick Leukocytes (reference range) trace Not Available [facility] [address] [place] [address], [address], 08/07/2023 15:15:15 08/07/20 23 08/07/2023 urina lysis , dipst ick Nitrite (reference range:) negati ve Not Available [facility] [address] [place] [address], [address], 08/07/2023 15:15:15 08/07/2008/07/2023 urina lysis , dipst ick Urobilinogen (reference range) 0.2 Not Available [facility] [address] [place] [address] [address], [place], [address], 08/07/2023 15:15:15 08/07/2008/07/2023 urina lysis , dipst ick Protein (reference range) negati ve Not Available [facility] [address] [place] [address] [address], [place], [address], 08/07/2023 15:15:15 08/07/2008/07/2023 urina lysis , dipst ick pH (reference range 5-8.5) 6.0 Not Available [facility] [address] [place] [address] [address], [place], [address], 08/07/2023 15:15:15 08/07/2008/07/2023 urina lysis , dipst ick Blood (reference range:) small Not Available [facility] [address] [place] [address] [address], [place], [address], 08/07/2023 15:15:15 08/07/2008/07/2023 urina lysis , dipst ick Specific Hedrick (reference range) 1.015 Not Available [facility] [address] [place] [address] [address], [place], [address], 08/07/2023 15:15:15 08/07/2008/07/2023 urina lysis , dipst ick Ketone (reference range) negati ve Not Available [facility] [address] [place] [address] [address], [place], [address], 08/07/2023 15:15:15 08/07/2008/07/2023 urina lysis , dipst ick Bilirubin (reference range) negati ve Not Available [facility] [address], [place], [address], 08/07/2023 15:15:15 08/07/2008/07/2023 urina lysis , dipst ick Glucose (reference range) 250 Not Available [facility] [address] [facility] [address], [place], [address], 08/07/2023 15:15:15 08/07/2008/07/2023 urina lysis , dipst ick Color (reference range: yellow-brown ) Yellow Not Available [facility] [address] [facility] [address], [place], [address], 08/07/2023 15:15:15 02/24/20 25 02/23/2025 CBC AUTO W DIFF WBC 11.3 K/uL 4.0-10 .5 high Not Available [facility] ([facility]) [address] [facility], [place], [address], 02/23/2025 15:02:28 02/24/20 25 02/23/2025 CBC AUTO W DIFF RBC 5.7 M/mm3 4.2-6. 4 Not Available [facility] ([facility]) [address] [facility], [place], [address], 02/23/2025 15:02:28 02/24/20 25 02/23/2025 CBC AUTO W DIFF HGB 15.8 gm/dL 12.5-1 6.0 Not Available [facility] ([facility]) [address] [place], [address], 02/23/2025 15:02:28 02/24/20 25 02/23/2025 CBC AUTO W DIFF HCT 48.8 % 37.0-4 7.0 high Not Available [facility] ([facility]) [address] [place], [address], 02/23/2025 15:02:28 02/24/20 25 02/23/2025 CBC AUTO W DIFF MCV 86.4 fL 78-100 Not Available [facility] ([facility]) [address] , [place], [address], 02/23/2025 15:02:28 02/24/20 25 02/23/2025 CBC AUTO W DIFF MCH 28.0 pg 27-31 Not Available [facility] ([facility]) [address] , [place], [address], 02/23/2025 15:02:28 02/24/20 25 02/23/2025 CBC AUTO W DIFF MCHC 32.4 g/dL 32-36 Not Available [facility] ([facility]) [address], [place], [address], 02/23/2025 15:02:28 02/24/20 25 02/23/2025 CBC AUTO W DIFF RDW 13.7 % 11.5-1 4.0 Not Available [facility]) [address] , [place], [address], 02/23/2025 15:02:28 02/24/20 25 02/23/2025 CBC AUTO W DIFF platelet count 380 K/uL 150-45 0 Not Available [facility]) [address] , [place], [address], 02/23/2025 15:02:28 02/24/20 25 02/23/2025 CBC AUTO W DIFF MPV 10.3 fL 6-9.5 high Not Available [facility]) [address] , [place], [address], 02/23/2025 15:02:28 02/24/20 25 02/23/2025 CBC AUTO W DIFF neutrophil% 66.5 % 43-65 high Not Available [facility] ([facility]) [address] , [place], [address], 02/23/2025 15:02:28 02/24/20 25 02/23/2025 CBC AUTO W DIFF lymphocyte% 24.3 % 20.5-4 5.5 Not Available [facility]) [address] , [place], [address], 02/23/2025 15:02:28 02/24/20 25 02/23/2025 CBC AUTO W DIFF monocyte% 6.0 % 5.5-11 .7 Not Available [facility]) [address] , [place], [address], 02/23/2025 15:02:28 02/24/20 25 02/23/2025 CBC AUTO W DIFF eosinophil% 2.3 % 0.9-2. 9 Not Available [facility]) [address] , [place], [address], 02/23/2025 15:02:28 02/24/20 25 02/23/2025 CBC AUTO W DIFF basophil% 0.6 % 0.2-1. 0 Not Available [facility] ([facility]) [address] , [place], [address], 02/23/2025 15:02:28 02/24/20 25 02/23/2025 CBC AUTO W DIFF immature granulocytes % 0.3 % 0.0-0. 8 Not Available [facility] ([facility]) [address] , [place], [address], 02/23/2025 15:02:28 02/24/20 25 02/23/2025 CBC AUTO W DIFF nucleated red blood cells % 0.0 % Not Available [facility] ([facility]) [address] , [place], [address], 02/23/2025 15:02:28 02/24/20 25 02/23/2025 CBC AUTO W DIFF neutrophil# 7.5 K/uL 2.2-4. 8 high Not Available [facility] ([facility]) [address] [facility], [place], [address], 02/23/2025 15:02:28 02/24/20 25 02/23/2025 CBC AUTO W DIFF lymphocyte# 2.7 cell/ mcL 1.3-2. 9 Not Available [facility]) [address] [facility], [place], [address], 02/23/2025 15:02:28 02/24/20 25 02/23/2025 CBC AUTO W DIFF monocyte# 0.7 cell/ mcL 0.3-0. 8 Not Available [facility] ([facility]) [address] [facility], [place], [address], 02/23/2025 15:02:28 02/24/20 25 02/23/2025 CBC AUTO W DIFF eosinophil# 0.3 cell/ mcL 0-0.2 high Not Available [facility] ([facility]) [address] [facility], [place], [address], 02/23/2025 15:02:28 02/24/20 25 02/23/2025 CBC AUTO W DIFF basophil# 0.1 cell/ mcL 0.0-1. 0 Not Available [facility] ([facility]) [address] [place], [address], 02/23/2025 15:02:28 02/24/20 25 02/23/2025 CBC AUTO W DIFF immature gramulocytes # 0.03 K/uL Not Available [facility] ([facility]) [address] [place], [address], 02/23/2025 15:02:28 02/24/20 25 02/23/2025 CBC AUTO W DIFF nucleated red blood cells # 0.00 K/uL Not Available [facility] ([facility]) [address] [place], [address], 02/23/2025 15:02:28 02/24/20 25 02/23/2025 CBC AUTO W DIFF manual differential NO Not Available [facility] ([facility]) [address] , [place], [address], 02/23/2025 15:02:28 02/24/20 25 02/23/2025 COMP METAB OLIC PANEL sodium 138 mmol/ L 136-14 5 Not Available [facility] ([facility]) [address] , [place], [address], 02/23/2025 15:39:03 02/24/20 25 02/23/2025 COMP METAB OLIC PANEL potassium 3.7 mmol/ L 3.6-5. 0 Not Available [facility] ([facility]) [address] , [place], [address], 02/23/2025 15:39:03 02/24/20 25 02/23/2025 COMP METAB OLIC PANEL chloride 98 mmol/ L 98-107 Not Available [facility] ([facility]) [address] , [place], [address], 02/23/2025 15:39:03 02/24/20 25 02/23/2025 COMP METAB OLIC PANEL carbon dioxide 26.8 mmol/ L 21.0-3 2.0 Not Available [facility] ([facility]) [address] , [place], [address], 02/23/2025 15:39:03 02/24/20 25 02/23/2025 COMP METAB OLIC PANEL anion gap 16.9 Not Available [facility] ([facility]) [address] , [place], [address], 02/23/2025 15:39:03 02/24/20 25 02/23/2025 COMP METAB OLIC PANEL glucose 200 mg/dL 70-120 high Not Available [facility] ([facility]) [address], [place], [address], 02/23/2025 15:39:03 02/24/20 25 02/23/2025 COMP METAB OLIC PANEL BUN 12 mg/dL 7-18 Not Available [facility] ([facility]) [address], [place], [address], 02/23/2025 15:39:03 02/24/20 25 02/23/2025 COMP METAB OLIC PANEL creatinine 1.1 mg/dL 0.6-1. 3 Not Available [facility] ([facility]) [address], [place], [address], 02/23/2025 15:39:03 02/24/20 25 02/23/2025 COMP METAB [...] brown ing kiney funct ion. Not Available [facility] ([facility]) [address] , [place], [address], 02/23/2025 15:39:03 02/24/20 25 02/23/2025 COMP METAB OLIC PANEL osmolality (calculated) 293 mOsm/ kg 275-30 1 OSMOL ALITY IS A CALCU LATIO N UTILI ZING THE SERUM /PLAS MA SODIU M, GLUCO SE AND UREA NITRO GEN (BUN) LEVEL S. FOR THE MOST ACCUR ATE RESUL T A MEASU RED SERUM OSMOL ALITY IS SUGGE STED. Not Available [facility] ([facility]) [address] , [place], [address], 02/23/2025 15:39:03 02/24/20 25 02/23/2025 COMP METAB OLIC PANEL total protein 8.1 g/dL 6.4-8. 2 Not Available [facility] ([facility]) [address] , [place], [address], 02/23/2025 15:39:03 02/24/20 25 02/23/2025 COMP METAB OLIC PANEL albumin 3.6 g/dL 3.4-5. 0 Not Available [facility] ([facility]) [address], [place], [address], 02/23/2025 15:39:03 02/24/20 25 02/23/2025 COMP METAB OLIC PANEL globulin 4.5 Not Available [facility] ([facility]) [address], [place], [address], 02/23/2025 15:39:03 02/24/20 25 02/23/2025 COMP METAB OLIC PANEL alb/glob ratio 0.8 0.7-2 Not Available [facility] ([facility]) [address] , [place], [address], 02/23/2025 15:39:03 02/24/20 25 02/23/2025 COMP METAB OLIC PANEL calcium 10.2 mg/dL 8.5-10 .5 Not Available [facility]) [address] , [place], [address], 02/23/2025 15:39:03 02/24/20 25 02/23/2025 COMP METAB OLIC PANEL bilirubin total 0.60 mg/dL 0.10-1 .00 Not Available [facility] ([facility]) [address], [place], [address], 02/23/2025 15:39:03 02/24/20 25 02/23/2025 COMP METAB OLIC PANEL AST (SGOT) 46 U/L 0-37 high Not Available [facility] ([facility]) [address] , [place], [address], 02/23/2025 15:39:03 02/24/20 25 02/23/2025 COMP METAB OLIC PANEL ALT (SGPT) 78 U/L 0-65 high Not Available [facility] ([facility]) [address], [place], [address], 02/23/2025 15:39:03 02/24/20 25 02/23/2025 COMP METAB OLIC PANEL alk phosphatase 111 U/L 46-116 Not Available [facility] ([facility]) [address], [place], [address], 02/23/2025 15:39:03 02/24/20 25 02/23/2025 C-KARLI CTIVE PROTE IN (CRP) C-reactive protein, quant 2.0 mg/dL 0.05-0 .300 high Not Available [facility] ([facility]) [address], [place], [address], 02/23/2025 15:40:11 02/24/20 25 02/23/2025 SED RATE sed rate auto 9 0-20 Not Available [facility] ([facility]) [address], [place], [address], 02/23/2025 15:43:35 02/24/20 25 02/27/2025 URINE CULTU RE,CO MPREH ENSIV E urine culture,comp rehensive FINAL REPORT abnormal Not Available [facility] ([facility]) [address], [place], [address], 02/27/2025 19:09:52 02/24/20 25 02/27/2025 URINE CULTU [...] ng units per mL Not Available [facility] ([facility]) [address] [facility], [place], [address], 02/27/2025 19:09:52 02/24/20 25 02/27/2025 URINE CULTU [...] as Cefta rolin e Not Available [facility] ([facility]) [address] [facility], [place], [address], 02/27/2025 19:09:52 02/24/20 25 02/27/2025 URINE CULTU [...] Vanco mycin R S Not Available [facility] ([facility]) [address], [place], [address], 02/27/2025 19:09:52 02/24/2002/23/2025 urina lysis , dipst ick Leukocytes (reference range) trace Not Available [facility] [address] [facility] [address], [place], [address], 02/23/2025 14:16:48 02/24/20 25 02/23/2025 urina lysis , dipst ick Nitrite (reference range:) negati ve Not Available [place] [address] [address] [facility] [address], [place], [address], 02/23/2025 14:16:48 02/24/20 25 02/23/2025 urina lysis , dipst ick Urobilinogen (reference range) 0.[address] [facility] [address] [facility] [address], [place], [address], 02/23/2025 14:16:48 02/24/20 25 02/23/2025 urina lysis , dipst ick Protein (reference range) negati ve Not Available [facility] [address] [facility] [address], [place], [address], 02/23/2025 14:16:48 02/24/20 25 02/23/2025 urina lysis , dipst ick pH (reference range 5-8.5) 6.0 Not Available [facility] [address] [facility] [address], [place], [address], 02/23/2025 14:16:48 02/24/20 25 02/23/2025 urina lysis , dipst ick Blood (reference range:) small Not Available [facility] [address] [facility] [address], [place], [address], 02/23/2025 14:16:48 02/24/20 25 02/23/2025 urina lysis , dipst ick Specific Hedrick (reference range) 1.015 Not Available [place] [address] [address], [place], [address], 02/23/2025 14:16:48 02/24/20 25 02/23/2025 urina lysis , dipst ick Ketone (reference range) negati ve Not Available [place] [address] [address] [facility] [address], [place], [address], 02/23/2025 14:16:48 02/24/20 25 02/23/2025 urina lysis , dipst ick Bilirubin (reference range) negati ve Not Available [place] [address] [address] [facility] [address], [place], [address], 02/23/2025 14:16:48 02/24/20 25 02/23/2025 urina lysis , dipst ick Glucose (reference range) 500 Not Available [place] [address] [address] [facility] [address], [place], [address], 02/23/2025 14:16:48 02/24/20 25 02/23/2025 urina lysis , dipst ick Color (reference range: yellow-brown ) Dark Yellow Not Available [place] [address] [address] [facility] [address], [place], [address], 02/23/2025 14:16:48 Result Notes None recorded. Problems Name Problem SNOMED Code Status Onset Date Resolution Date Notes Provider Name and Address Organization Details Recorded Time Syncope 729299729 Active 2021 Malina Hernandez DO [address] [facility], [place], [address] , [place] - [facility] & [place] 15:33:04 [facility] [id number] Active 2021 Malina Hernandez DO [address], [place], [address] , [place] [facility] [place] & [place] 15:34:08 Problem Notes None recorded. Procedures Surgical History Date Name Laterality Status Provider Name and Address Organization Details Recorded Time 09/25/20 23 Cystoscopy-Female completed Silvio Valdez MD [address], [place], [address], [place] - [facility] - [place] & [place] 09/25/2023 15:26:11 04/04/20 22 Date of Last Pap Smear completed Vandana Eugenioa [place] - [facility] - [place] & [place] 10/03/2022 14:31:43 10/28/19 22 Collar Padder Blindstitch Surgery completed Vandana Dalla [place] - [facility] [place] & [place] 10/03/2022 14:45:45 10/28/19 17 Cholecystectomy completed Vandana Dalla [place] [facility] [place] & [place] 10/03/2022 14:32:27 10/28/19 14 Other completed Vandana Dalla [place] [facility] [place] & [place] 10/03/2022 14:44:51 cardiac catheterization completed Vandana Dalla [place] [facility] [place] 10/03/2022 14:46:31 strabismus surgery completed Vandana Dalla [place] [facility] [place] & [place] 10/03/2022 14:55:15 Imaging Results None recorded. Procedure Notes None recorded. Medical Equipment None Reported. Allergies Allergen ID Allergen Name Allergen Category Reaction Reaction Severity Criticality Documentation Date Start Date Code Code System Note Provider Name and Address Organization Details Recorded Time 78898 aspirin medicatio n chest pain wheezing moderate severe Not available 10/02/2022 1191 RxNorm Vandana Eugenioa null, [place] [facility] [place] & [place] 2 09:22:42 30230 Bactrim medicatio n arthralgi a (joint pain) muscle cramps severe severe Not available 10/02/2022 66845 9 RxNorm Vandana Eugenioa [place], [place] - [facility] [place] & [place] 2 09:22:49 88700 insect venom environme nt confusion cough dizziness fever flushing headache wheezing moderate moderate moderate mild moderate moderate moderate Not available 10/02/2022 64624 UNK Vandana catherine, [facility] & [place] 2 09:23:13 98951 Pneumococ georges vaccine Not available anaphylax is chest pain facial swelling nausea rash wheezing moderate moderate moderate moderate moderate moderate Not available 10/02/2022 29463 7 RxNorm [facility] Reed [facility] & [place] 2 09:23:25 86096 rosuvasta tin medicatio n eye swelling facial swelling respirato ry distress moderate moderate moderate Not available 10/02/2022 36154 2 RxNorm Vandana catherine, [facility] & [place] 2 09:23:35 Medications Name Sig [...] % 2 L/min 89 /min 48.3 kg/m2 691754. 39 g 128 mm[Hg] 98 mm[Hg] Phillip Prince [place] - [facility] & [place] 3 13:04:48 Date Recorded Body height Body mass index (BMI) Body weight Systolic blood pressure Diastolic blood pressure Provider Name and Address Organization Details Last Updated DateTime 08/07/2023 157.48 cm 49.4 kg/m2 938770.9 4 g 125 mm[Hg] 75 mm[Hg] Britney Yee [place] - [place] [facility] & [place] 3 15:05:24 Date Recorded Body height Body mass index (BMI) Body weight Systolic blood pressure Diastolic blood pressure Provider Name and Address Organization Details Last Updated DateTime 09/25/2023 157.48 cm 51.2 kg/m2 350976.8 6 g 126 mm[Hg] 76 mm[Hg] Ioana Ayala [place] - [facility] & [place] 3 15:07:04 Date Recorded Heart rate Body height Oxygen saturation Oxygen saturation in Arterial blood by Pulse oximetry Heart rate Body temperature Body mass index (BMI) Body weight Systolic blood pressure Diastolic blood pressure Provider Name and Address Organization Details Last Updated DateTime 5 80 /min 160.02 cm 96 % 96 % 80 /min 98.6 [degF] 49.6 kg/m2 275551. 86 g 116 mm[Hg] 100 mm[Hg] Bianca Smith [facility] & [place] 5 13:59:18 Date Recorded Body height Heart rate Oxygen saturation Oxygen saturation in Arterial blood by Pulse oximetry Heart rate Body temperature Body mass index (BMI) Body weight Systolic blood pressure Diastolic blood pressure Provider Name and Address Organization Details Last Updated DateTime 5 160.02 cm 60 /min 97 % 97 % 60 /min 97.7 [degF] 49.6 kg/m2 503766. 86 g 119 mm[Hg] 79 mm[Hg] Bianca Smith [facility] & [place] 5 13:31:54 Social History Question Answer Notes LastModified by [employer] Details LastModified Time Tobacco Smoking Status [facility] [place] 10/03/2022 14:32:09 Do You Have An Advance Directive? No Information not available 10/03/2022 Are You Blind Or Do You Have Difficulty Seeing? No Information not available 10/03/2022 What Was The Date Of Your Most Recent Tobacco Screening? 09/17/2022 Information not available 10/03/2022 Do You Have Any Pets? Yes [email or web address] Information not available 09/25/2023 Are You Passively Exposed To Smoke? No Information not available 10/03/2022 Are You Currently In School? No [employer] [email or web address] Information not available 09/25/2023 Sex: Female Functional Status Question Answer Note LastModified by [employer] Details LastModified Time Do you use any illicit or recreational drugs? No Information not available 10/03/2022 What is your level of alcohol consumption? 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 Occasional Information not available 10/03/2022 Mental Status Question Answer Note LastModified by Organization D etails LastModified Time Do you feel stressed (tense, restless, nervous, or anxious, or unable to sleep at night)? [id number] Information not available 10/03/2022 Family History Relationship [...] SNOMED-CT Code Diagnosis ICD10 Code Diagnosis Note [id number] Malina Hernandez, DO [facility] Neurology [address] [facility],[address] [facility] [place] [address] 10/03/2022 14:07:23 10/03/2022 15:38:25 Syncope [id number] R55 She has been experienci ng these stereotypi georges passing out episodes for five years. No definite witnessed convulsion s but some associated brief confusion afterwards .will order EEG to rule out neurologic causes of syncope Hypersomnia [id number] G47 .10 She describes some significan t episodes of pathologic al sleepiness . She will fall asleep without warning in the middle of talking. This is very infrequent but can be suggestive of narcolepsy . Will order PSG with MSLT to evaluate this in more detail. [id number] Micheline Lackey MD [facility] General Surgery [address] [place] [address],[address] [place] [address] 04/02/2023 12:53:55 04/02/2023 13:53:12 Pelvic mass 65487515 R19.00 Possible lymphocele versus ovarian remnant from [...] patient with lab levels and consider further PLASTIC DUPLICATOR follow up. [id number] Silvio Valdez MD [facility] Urology [address] [place] [address],[address] [place] [address] 08/07/2023 14:35:57 08/07/2023 15:40:17 Recurrent urinary tract infection 657984302 N39.0 Kidney stone 44143589 N2 0.0 Chronic th oracic back pain [id number] 54386 M54.6 Microscopic hematuria 19 9191799 R31.29 [id number] Silvio Valdez MD [facility] Urology [address] [place] [address] [address] [place] [address] 09/25/2023 14:26:57 09/25/2023 15:25:02 Recurrent urinary tract infection [id number] N39.0 Kidney stone 91090212 N2 0.0 Microscopic hematuria 19 8454735 R31.29 [id number] [facility] [address] [facility] [address] [place] [address] 02/23/2025 13:48:33 02/23/2025 14:17:11 Recurrent urinary tract infection 762976960 N39.0 Will check lab work. Will send urine off for a culture. Will see patient back in 1 week. 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 Patient will follow up in 2 weeks. Call the office if anything persists or worsens. 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 see above Health Concerns Section Related Observation LastModified by Organization Detai ls LastModified Time None Recorded Concern Status LastModified by Organization Details LastModified Time None Recorded Advance Directives Directive N: Payers Insurance Date Sequence Insurance Name Policy Number Policy Valdivia Covered Member ID Valdivia Member ID Guarantor Name 09/18/2023 1 [facility] (POS II) [facility] [id number] [facility] 02/27/2025 1 [facility] (MEDICAID HMO) [facility] [id number] [facility] Notes Date Note Type [...] time. Patient states she is seen her felt hanger for this, was told it is possibly a lymphocele. Micheline Lackey MD [address] [facility], [place], [address], [place] - [facility] - [place] & [place] 04/18/2023 12:50:43 08/07/2023 text/html Location: Histor y [...] status post hysterectomy. Silvio Valdez MD [address], [place], [address], [facility] [place] - [facility] - [place] & [place] 08/07/2023 15:35:17 09/25/2023 text/html Patient returns to [...] hysterectomy. Silvio Valdez MD [address], [place], [address], [place] [facility] [place] 09/25/2023 15:30:10 02/23/2025 text/html patient presents to [...] 2025. Marilou David APRN [address], [place], [address], [place] - [facility] & [place] 02/24/2025 10:59:38 03/02/2025 text/html patient presents to clinic for follow up. Urine culture results received. Patient denies any fever. She is scheduled to have surgery to remove her stone on . Marilou David APRN [address], [place], [address], [place] - [facility] & [place] 03/02/2025 13:35:40 OBGyn Episode No OBEpisode recorded.
[2025-03-17 13:06] VITALS: BP 138/79; PULSE 66; RESP 20; TEMP 36.4; O2SAT 98
[2025-03-17] MEDS: SODIUM CHLORIDE 0.9% 50ML BAG 50 ML IV (13:06)
[2025-03-17] MEDS: SODIUM CHLORIDE 0.9% 10ML FLUSH SYRINGE 10 ML IV (13:06)
[2025-03-17] MEDS: ERTAPENEM SODIUM 1 GM in 0.9 % SODIUM CHLORIDE 50 ML IV (13:06)
[2025-03-17 13:40] VITALS: BP 127/69; PULSE 70; RESP 20; O2SAT 98
== END 2025-03-17 13:40 | disposition home or self-care (01) ==
LOC: INF 12:49
PROVIDERS: PCP Internal Medicine; Visit Provider Internal Medicine Adolescent Medicine
DX: N39.0 Urinary tract infection, site not specified (principal)
CPT/HCPCS: 96365; J1335

== ENCOUNTER 2025-03-18 12:30 | Outpatient (CLI) | payer OTHER, SELFPAY ==
[2025-03-18 12:43] VITALS: BP 119/64; PULSE 78; RESP 20; TEMP 36.6; O2SAT 99
[2025-03-18] MEDS: SODIUM CHLORIDE 0.9% 50ML BAG 50 ML IV (12:43)
[2025-03-18] MEDS: SODIUM CHLORIDE 0.9% 10ML FLUSH SYRINGE 10 ML IV (12:43)
[2025-03-18] MEDS: ERTAPENEM SODIUM 1 GM in 0.9 % SODIUM CHLORIDE 50 ML IV (12:43)
== END 2025-03-18 13:30 | disposition home or self-care (01) ==
LOC: INF 12:34
PROVIDERS: PCP Internal Medicine; Visit Provider Internal Medicine Adolescent Medicine
DX: N39.0 Urinary tract infection, site not specified (principal)
CPT/HCPCS: 96365; J1335

== ENCOUNTER 2025-03-18 17:04 | Outpatient (CLI) | payer OTHER, SELFPAY ==
--- OUTSIDE RECORDS SUMMARY | 2025-03-18 17:07 | XMS_ITS | Data Portability ---
Author Organization [facility] [place] [facility] [place] Alejandro ADMIN Address [address] [place] [id number] Care Team Providers Care Radiology Transcriptionist Name Role Phone ZAHRAA BENAVIDES Primary Care Provider Assessment Encounter Date Assessment Date Assessment LastModified by Organization Details LastModified Time 08/07/2023 08/07/[address] scan images onto our system. Will review to determine the degree of stone burden bilaterally in the kidneys. Will also plan cystoscopy and pelvic exam in the office in the near future. [email or web address] Not available 08/07/2023 15:34:46 09/25/2023 09/25/2023 I [...] in 6 months with KUB and UA. [email or web address] Not available 09/25/2023 15:29:09 Plan of Treatment Reminders Order Date Submit Date Provider Last Modified By Organization Details Last Modified Time Details Appointments None recorded. Lab urinalysis, dipstick 2024 025 [email or web address] [facility] -105, [address], [place], [address], 5 14:18:52 CBC w/ diff 2024 025 [facility] (Registration ), [address], [place], [address], 5 16:11:55 CMP, serum or plasma 2024 025 [facility] (Registration ), [address], [place], [address], 5 15:39:03 ESR (erythrocyt e sedimentati on rate), blood [address] (Registration ), [address] [facility], [place], [address], 5 08:54:47 C-reactive protein, quantitativ e, serum or plasma [address] (Registration ), [address], [place], [address], 5 08:54:48 culture, urine 2024 025 [facility], [address], [address], [place], [address], 5 19:09:52 urinalysis, dipstick 2022 023 [email or web address] [facility], [address] [facility], [address], [place], [address], 3 16:08:29 Referral None recorded. Procedures None recorded. [...] usal 7.7 - 58.5 Perfo rmed at: [facility] [address] [place] [address] 1269 Lab Direc tor: Los carson PhD, Phone : [phone] Not Available [facility] ([facility]) [address] [facility], [place], [address], 04/03/2023 10:13:10 04/02/20 23 04/03/2023 FSH FSH, serum 5.4 mIU/m L Adult Femal e: Folli cular phase 3.5 - 12.5 Ovula tion phase 4.7 - 21.5 Lutea l phase 1.7 - 7.7 Postm enopa usal 25.8 - 134.8 Perfo rmed at: [facility] [address] [place] [address] 1263 Lab Direc tor: Los carson PhD, Phone : [phone] Not Available [facility] ([facility]) [address] [facility], [place], [address], 04/03/2023 10:14:16 08/07/20 23 08/07/2023 urina lysis , dipst ick Leukocytes (reference range) trace Not Available [facility] [address] [facility] [address] [place] [address], [address], 08/07/2023 15:15:15 08/07/2008/07/2023 urina lysis , dipst ick Nitrite (reference range:) negati ve Not Available [facility] [address] [facility] [address], [place], [address], 08/07/2023 15:15:15 08/07/20 23 08/07/2023 urina lysis , dipst ick Urobilinogen (reference range) 0.2 Not Available [facility] [address] [place] [address] [address], [place], [address], 08/07/2023 15:15:15 08/07/2008/07/2023 urina lysis , dipst ick Protein (reference range) negati ve Not Available [facility] [address], [place], [address], 08/07/2023 15:15:15 08/07/2008/07/2023 urina lysis , dipst ick pH (reference range 5-8.5) 6.0 Not Available [facility] [address], [place], [address], 08/07/2023 15:15:15 08/07/2008/07/2023 urina lysis , dipst ick Blood (reference range:) small Not Available [facility] [address] [place] [address] [address], [place], [address], 08/07/2023 15:15:15 08/07/2008/07/2023 urina lysis , dipst ick Specific [place] (reference range) 1.015 Not Available [facility] [address], [place], [address], 08/07/2023 15:15:15 08/07/2008/07/2023 urina lysis , dipst ick Ketone (reference range) negati ve Not Available [address], [place], [address], 08/07/2023 15:15:15 08/07/2008/07/2023 urina lysis , dipst ick Bilirubin (reference range) negati ve Not Available [address], [place], [address], 08/07/2023 15:15:15 08/07/20 23 08/07/2023 urina lysis , dipst ick Glucose (reference range) 250 Not Available [facility] [address] [facility] [address], [place], [address], 08/07/2023 15:15:15 08/07/20 23 08/07/2023 urina lysis , dipst ick Color (reference range: yellow-brown ) Yellow Not Available [facility] [address] [facility] [address], [place], [address], 08/07/2023 15:15:15 02/24/20 25 02/23/2025 CBC AUTO W DIFF WBC 11.3 K/uL 4.0-10 .5 high Not Available [facility] ([facility]) [address] [facility], [place], [address], 02/23/2025 15:02:28 02/24/20 25 02/23/2025 CBC AUTO W DIFF RBC 5.7 M/mm3 4.2-6. 4 Not Available [facility] ([facility]) [address], [place], [address], 02/23/2025 15:02:28 02/24/20 25 02/23/2025 CBC AUTO W DIFF HGB 15.8 gm/dL 12.5-1 6.0 Not Available [facility] ([facility]) [address] [facility], [place], [address], 02/23/2025 15:02:28 02/24/20 25 02/23/2025 CBC AUTO W DIFF HCT 48.8 % 37.0-4 7.0 high Not Available [facility] ([facility]) [address], [place], [address], 02/23/2025 15:02:28 02/24/20 25 02/23/2025 CBC AUTO W DIFF MCV 86.4 fL 78-100 Not Available [facility] ([facility]) [address], [place], [address], 02/23/2025 15:02:28 02/24/20 25 02/23/2025 CBC AUTO W DIFF MCH 28.0 pg 27-31 Not Available [facility] ([facility]) [address], [place], [address], 02/23/2025 15:02:28 02/24/20 25 02/23/2025 CBC AUTO W DIFF MCHC 32.4 g/dL 32-36 Not Available [facility] ([facility]) [address], [place], [address], 02/23/2025 15:02:28 02/24/20 25 02/23/2025 CBC AUTO W DIFF RDW 13.7 % 11.5-1 4.0 Not Available [facility] ([facility]) [address], [place], [address], 02/23/2025 15:02:28 02/24/20 25 02/23/2025 CBC AUTO W DIFF platelet count 380 K/uL 150-45 0 Not Available [facility] ([facility]) [address], [place], [address], 02/23/2025 15:02:28 02/24/20 25 02/23/2025 CBC AUTO W DIFF MPV 10.3 fL 6-9.5 high Not Available [facility] ([facility]) [address], [place], [address], 02/23/2025 15:02:28 02/24/20 25 02/23/2025 CBC AUTO W DIFF neutrophil% 66.5 % 43-65 high Not Available [facility] ([facility]) [address], [place], [address], 02/23/2025 15:02:28 02/24/20 25 02/23/2025 CBC AUTO W DIFF lymphocyte% 24.3 % 20.5-4 5.5 Not Available [facility] ([facility]) [address], [place], [address], 02/23/2025 15:02:28 02/24/20 25 02/23/2025 CBC AUTO W DIFF monocyte% 6.0 % 5.5-11 .7 Not Available [facility] ([facility]) [address], [place], [address], 02/23/2025 15:02:02/24/20 25 02/23/2025 CBC AUTO W DIFF eosinophil% 2.3 % 0.9-2. 9 Not Available [facility] ([facility]) [address] [facility], [place], [address], 02/23/2025 15:02:28 02/24/20 25 02/23/2025 CBC AUTO W DIFF basophil% 0.6 % 0.2-1. 0 Not Available [facility] ([facility]) [address] [place], [address], 02/23/2025 15:02:28 02/24/20 25 02/23/2025 CBC AUTO W DIFF immature granulocytes % 0.3 % 0.0-0. 8 Not Available [facility] ([facility]) [address] [place], [address], 02/23/2025 15:02:28 02/24/20 25 02/23/2025 CBC AUTO W DIFF nucleated red blood cells % 0.0 % Not Available [facility] ([facility]) [address] [place], [address], 02/23/2025 15:02:28 02/24/20 25 02/23/2025 CBC AUTO W DIFF neutrophil# 7.5 K/uL 2.2-4. 8 high Not Available [facility] ([facility]) [address] [facility], [place], [address], 02/23/2025 15:02:28 02/24/20 25 02/23/2025 CBC AUTO W DIFF lymphocyte# 2.7 cell/ mcL 1.3-2. 9 Not Available [facility] ([facility]) [address], [place], [address], 02/23/2025 15:02:28 02/24/20 25 02/23/2025 CBC AUTO W DIFF monocyte# 0.7 cell/ mcL 0.3-0. 8 Not Available [facility] ([facility]) [address] [facility], [place], [address], 02/23/2025 15:02:28 02/24/20 25 02/23/2025 CBC AUTO W DIFF eosinophil# 0.3 cell/ mcL 0-0.2 high Not Available [facility] ([facility]) [address] [facility], [place], [address], 02/23/2025 15:02:28 02/24/20 25 02/23/2025 CBC AUTO W DIFF basophil# 0.1 cell/ mcL 0.0-1. 0 Not Available [facility] ([facility]) [address] [facility], [place], [address], 02/23/2025 15:02:28 02/24/20 25 02/23/2025 CBC AUTO W DIFF immature gramulocytes # 0.03 K/uL Not Available [facility] ([facility]) [address] [facility], [place], [address], 02/23/2025 15:02:28 02/24/20 25 02/23/2025 CBC AUTO W DIFF nucleated red blood cells # 0.00 K/uL Not Available [facility] ([facility]) [address] [facility], [place], [address], 02/23/2025 15:02:28 04/29/02/23/2025 CBC AUTO W DIFF manual differential NO Not Available [facility] ([facility]) [address], [place], [address], 02/23/2025 15:02:28 02/24/20 25 02/23/2025 COMP METAB OLIC PANEL sodium 138 mmol/ L 136-14 5 Not Available [facility] ([facility]) [address], [place], [address], 02/23/2025 15:39:03 02/24/20 25 02/23/2025 COMP METAB OLIC PANEL potassium 3.7 mmol/ L 3.6-5. 0 Not Available [facility] ([facility]) [address] , [place], [address], 02/23/2025 15:39:03 02/24/20 25 02/23/2025 COMP METAB OLIC PANEL chloride 98 mmol/ L 98-107 Not Available [facility] ([facility]) [address] , [place], [address], 02/23/2025 15:39:03 02/24/20 25 02/23/2025 COMP METAB OLIC PANEL carbon dioxide 26.8 mmol/ L 21.0-3 2.0 Not Available [facility] ([facility]) [address] , [place], [address], 02/23/2025 15:39:03 02/24/20 25 02/23/2025 COMP METAB OLIC PANEL anion gap 16.9 Not Available [facility] ([facility]) [address] [place], [address], 02/23/2025 15:39:03 02/24/20 25 02/23/2025 COMP METAB OLIC PANEL glucose 200 mg/dL 70-120 high Not Available [facility] ([facility]) [address], [place], [address], 02/23/2025 15:39:03 02/24/20 25 02/23/2025 COMP METAB OLIC PANEL BUN 12 mg/dL 7-18 Not Available [facility] ([facility]) [address], [place], [address], 02/23/2025 15:39:03 02/24/20 25 02/23/2025 COMP METAB OLIC PANEL creatinine 1.1 mg/dL 0.6-1. 3 Not Available [facility] ([facility]) [address], [place], [address], 02/23/2025 15:39:03 02/24/20 25 02/23/2025 COMP METAB [...] brown ing kiney funct ion. Not Available [facility] ([facility]) [address] , [place], [address], 02/23/2025 15:39:03 02/24/20 25 02/23/2025 COMP METAB OLIC PANEL osmolality (calculated) 293 mOsm/ kg 275-30 1 OSMOL ALITY IS A CALCU LATIO N UTILI ZING THE SERUM /PLAS MA SODIU M, GLUCO SE AND UREA NITRO GEN (BUN) LEVEL S. FOR THE MOST ACCUR ATE RESUL T A MEASU RED SERUM OSMOL ALITY IS SUGGE STED. Not Available [facility] ([facility]) [address], [place], [address], 02/23/2025 15:39:03 02/24/20 25 02/23/2025 COMP METAB OLIC PANEL total protein 8.1 g/dL 6.4-8. 2 Not Available [facility] ([facility]) [address] , [place], [address], 02/23/2025 15:39:03 02/24/20 25 02/23/2025 COMP METAB OLIC PANEL albumin 3.6 g/dL 3.4-5. 0 Not Available [facility] ([facility]) [address] , [place], [address], 02/23/2025 15:39:03 02/24/20 25 02/23/2025 COMP METAB OLIC PANEL globulin 4.5 Not Available [facility] ([facility]) [address], [place], [address], 02/23/2025 15:39:03 02/24/20 25 02/23/2025 COMP METAB OLIC PANEL alb/glob ratio 0.8 0.7-2 Not Available [facility] ([facility]) [address], [place], [address], 02/23/2025 15:39:03 02/24/20 25 02/23/2025 COMP METAB OLIC PANEL calcium 10.2 mg/dL 8.5-10 .5 Not Available [facility] ([facility]) [address], [place], [address], 02/23/2025 15:39:03 02/24/20 25 02/23/2025 COMP METAB OLIC PANEL bilirubin total 0.60 mg/dL 0.10-1 .00 Not Available [facility] ([facility]) [address] [place], [address], 02/23/2025 15:39:03 02/24/20 25 02/23/2025 COMP METAB OLIC PANEL AST (SGOT) 46 U/L 0-37 high Not Available [facility] ([facility]) [address], [place], [address], 02/23/2025 15:39:03 02/24/20 25 02/23/2025 COMP METAB OLIC PANEL ALT (SGPT) 78 U/L 0-65 high Not Available [facility] ([facility]) [address], [place], [address], 02/23/2025 15:39:03 02/24/20 25 02/23/2025 COMP METAB OLIC PANEL alk phosphatase 111 U/L 46-116 Not Available [facility] ([facility]) [address] [facility], [place], [address], 02/23/2025 15:39:03 02/24/20 25 02/23/2025 C-KARLI CTIVE PROTE IN (CRP) C-reactive protein, quant 2.0 mg/dL 0.05-0 .300 high Not Available [facility] ([facility]) [address] [facility], [place], [address], 02/23/2025 15:40:11 02/24/20 25 02/23/2025 SED RATE sed rate auto 9 0-20 Not Available [facility] ([facility]) [address] [facility], [place], [address], 02/23/2025 15:43:35 02/24/20 25 02/27/2025 URINE CULTU RE,CO MPREH ENSIV E urine culture,comp rehensive FINAL REPORT abnormal Not Available [facility] ([facility]) [address] [facility], [place], [address], 02/27/2025 19:09:52 02/24/20 25 02/27/2025 URINE CULTU RE,CO MPREH ENSIV E result 1 COMMEN T abnormal Vanco mycin -resi stant Enter ococc us (Ente rococ cus faeci um) For Enter ococc us speci es, amino glyco sides (exce pt for high- level resis tance scree awais) , cepha lospo rins, clind amyci n, and trime thopr im-up lfame thoxa zole are not effec tive clini douglas . (CLSI , M100- S26, 2016) 25,00 0-50, 000 colon y formi ng units per mL Not Available [facility] ([facility]) [address] [facility], [place], [address], 02/27/2025 19:09:52 02/24/2002/27/2025 URINE CULTU RE,CO MPREH ENSIV E result [...] rolin e Not Available [facility] ([facility]) [address] [facility], [place], [address], 02/27/2025 19:09:52 02/24/2002/27/2025 URINE CULTU RE,CO MPREH ENSIV E antimicrobia [...] Vanco mycin R S Not Available [facility] ([facility]) [address] [facility], [place], [address], 02/27/2025 19:09:52 02/24/20 25 02/23/2025 urina lysis , dipst ick Leukocytes (reference range) trace Not Available [place] [address], [place], [address], 02/23/2025 14:16:48 02/24/20 25 02/23/2025 urina lysis , dipst ick Nitrite (reference range:) negati ve Not Available [place] [address] [address] [facility] [address], [place], [address], 02/23/2025 14:16:48 02/24/20 25 02/23/2025 urina lysis , dipst ick Urobilinogen (reference range) 0.2 Not Available [place] [address] [address] [facility] [address], [place], [address], 02/23/2025 14:16:48 02/24/20 25 02/23/2025 urina lysis , dipst ick Protein (reference range) negati ve Not Available [place] [address] [address] [facility] [address], [place], [address], 02/23/2025 14:16:48 02/24/20 25 02/23/2025 urina lysis , dipst ick pH (reference range 5-8.5) 6.0 Not Available [place] [address] [address] [facility] [address], [place], [address], 02/23/2025 14:16:48 02/24/20 25 02/23/2025 urina lysis , dipst ick Blood (reference range:) small Not Available [place] [address] [address] [facility] [address], [place], [address], 02/23/2025 14:16:48 02/24/20 25 02/23/2025 urina lysis , dipst ick Specific [place] (reference range) 1.015 Not Available [place] [address] [address] [facility] [address], [place], [address], 02/23/2025 14:16:48 02/24/20 25 02/23/2025 urina lysis , dipst ick Ketone (reference range) negati ve Not Available [place] [address] [address] [facility] [address], [place], [address], 02/23/2025 14:16:48 02/24/20 25 02/23/2025 urina lysis , dipst ick Bilirubin (reference range) negati ve Not Available [place] [address] [address] [facility] [address], [place], [address], 02/23/2025 14:16:48 02/24/20 25 02/23/2025 urina lysis , dipst ick Glucose (reference range) 500 Not Available [place] [address] [address] [facility] [address], [place], [address], 02/23/2025 14:16:48 02/24/20 25 02/23/2025 urina lysis , dipst ick Color (reference range: yellow-brown ) Dark Yellow Not Available [place] [address] [address] [facility] [address], [place], [address], 02/23/2025 14:16:48 Result Notes None recorded. Problems Name Problem SNOMED Code Status Onset Date Resolution Date Notes Provider Name and Address Organization Details Recorded Time Syncope 449784458 Active 2021 Malina Hernandez DO [address], [place], [address] , [facility] [place] [facility] [place] 15:33:04 Hypersomnia 42568337 Active 2021 Malina Hernandez DO [address] [facility], [place], [address] , [place] [facility] [place] 15:34:08 Problem Notes None recorded. Procedures Surgical History Date Name Laterality Status Provider Name and Address Organization Details Recorded Time 09/25/20 23 Cystoscopy-Female completed Silvio Valdez MD [address] [facility], [place], [address], [place] - [facility] [place] [facility] [place] 09/25/2023 15:26:11 04/04/20 22 Date of Last Pap Smear completed Vandana Eugenioa [place] - [facility] [place] [facility] [place] 10/03/2022 14:31:43 10/28/19 22 Dewaterer Operator Surgery completed Vandana Dalla [place] - [facility] [place] [facility] [place] 10/03/2022 14:45:45 10/28/19 17 Cholecystectomy completed Vandana Dalla [place] [facility] [place] 10/03/2022 14:32:27 10/28/19 14 Other completed Vandana Dalla [place] - [facility] [place] [facility] [place] 10/03/2022 14:44:51 cardiac catheterization completed Vandana [place]alla [place] [facility] [place] 10/03/2022 14:46:31 strabismus surgery completed Vandana Dalla [place] - [facility] [place] [facility] [place] 10/03/2022 14:55:15 Imaging Results None recorded. Procedure Notes None recorded. Medical Equipment None Reported. Allergies Allergen ID Allergen Name Allergen Category Reaction Reaction Severity Criticality Documentation Date Start Date Code Code System Note Provider Name and Address Organization Details Recorded Time 87910 aspirin medicatio n chest pain wheezing moderate severe Not available 10/02/2022 1191 RxNorm Vandana Eugenioa null, [place] [facility] [place] 09:22:42 40939 Bactrim medicatio n arthralgi a (joint pain) muscle cramps severe severe Not available 10/02/2022 69448 9 RxNorm Vandana Eugenioa [place], [place] - [facility] [place] 09:22:49 37186 insect venom environme nt confusion cough dizziness fever flushing headache wheezing moderate moderate moderate mild moderate moderate moderate Not available 10/02/2022 29946 UNK Vandana catherine, [facility] [place] 2 09:23:13 28222 Pneumococ georges vaccine Not available anaphylax is chest pain facial swelling nausea rash wheezing moderate moderate moderate moderate moderate moderate Not available 10/02/2022 12802 7 RxNorm Vandana catherine, [facility] [place] [place] 2 09:23:25 66823 rosuvasta tin medicatio n eye swelling facial swelling respirato ry distress moderate moderate moderate Not available 10/02/2022 91399 2 RxNorm Vandana catherine, [facility] [place] 2 09:23:35 Medications Name Sig Start Date [...] 10 DAYS -- FINISH ALL MEDICINE -- 12/06 /2022 completed Not Available Not Available Not Available [...] % 2 L/min 89 /min 48.3 kg/m2 331165. 39 g 128 mm[Hg] 98 mm[Hg] Phillip Prince [facility] & [place] 3 13:04:48 Date Recorded Body height Body mass index (BMI) Body weight Systolic blood pressure Diastolic blood pressure Provider Name and Address Organization Details Last Updated DateTime 08/07/2023 157.48 cm 49.4 kg/m2 523049.9 4 g 125 mm[Hg] 75 mm[Hg] Britneynevaeh Yee [facility] & [place] 3 15:05:24 Date Recorded Body height Body mass index (BMI) Body weight Systolic blood pressure Diastolic blood pressure Provider Name and Address Organization Details Last Updated DateTime 09/25/2023 157.48 cm 51.2 kg/m2 860646.8 6 g 126 mm[Hg] 76 mm[Hg] Ioana Lucy [facility] & [place] 3 15:07:04 Date Recorded Heart rate Body height Oxygen saturation Oxygen saturation in Arterial blood by Pulse oximetry Heart rate Body temperature Body mass index (BMI) Body weight Systolic blood pressure Diastolic blood pressure Provider Name and Address Organization Details Last Updated DateTime 5 80 /min 160.02 cm 96 % 96 % 80 /min 98.6 [degF] 49.6 kg/m2 391807. 86 g 116 mm[Hg] 100 mm[Hg] Bianca Khanoten [facility] [place] 5 13:59:18 Date Recorded Body height Heart rate Oxygen saturation Oxygen saturation in Arterial blood by Pulse oximetry Heart rate Body temperature Body mass index (BMI) Body weight Systolic blood pressure Diastolic blood pressure Provider Name and Address Organization Details Last Updated DateTime 5 160.02 cm 60 /min 97 % 97 % 60 /min 97.7 [degF] 49.6 kg/m2 180850. 86 g 119 mm[Hg] 79 mm[Hg] Bianca Khanoten [facility] - [facility] & [place] 5 13:31:54 Social History Question Answer Notes LastModified by [employer] Details LastModified Time Tobacco Smoking Status Never Smoker [facility] [place] 10/03/2022 14:32:09 Do You Have An Advance Directive? No Information not available 10/03/2022 Are You Blind Or Do You Have Difficulty Seeing? No Information not available 10/03/2022 What Was The Date Of Your Most Recent Tobacco Screening? 09/17/2022 Information not available 10/03/2022 Do You Have Any Pets? Yes [email or web address] Information not available 09/25/2023 Are You Passively Exposed To Smoke? No Information not available 10/03/2022 Are You Currently In School? No MASTERS [email or web address] Information not available 09/25/2023 Sex: Female Functional Status Question Answer Note LastModified by [employer] ion Details LastModified Time Do you use any illicit or recreational drugs? No Information not available 10/03/2022 What is your level of alcohol consumption? 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 Occasional Information not available 10/03/2022 Mental Status Question Answer Note LastModified by Organization D etails LastModified Time Do you feel stressed (tense, restless, nervous, or anxious, or unable to sleep at night)? [id number] Information not available 10/03/2022 Family History Relationship [...] SNOMED-CT Code Diagnosis ICD10 Code Diagnosis Note [id number] [facility] [address] [facility] [facility] [place] [address] 10/03/2022 14:07:23 10/03/2022 15:38:25 Syncope 176460901 R55 She has been experienci ng these stereotypi georges passing out episodes for five years. No definite witnessed convulsion s but some associated brief confusion afterwards .will order EEG to rule out neurologic causes of syncope Hypersomnia 14265870 G47 .10 She describes some significan t episodes of pathologic al sleepiness . She will fall asleep without warning in the middle of talking. This is very infrequent but can be suggestive of narcolepsy . Will order PSG with MSLT to evaluate this in more detail. 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 [id number] Silvio Valdez MD [facility] Urology [address] [place] [address],[address] [place] [address] 08/07/2023 14:35:57 08/07/2023 15:40:17 Recurrent urinary tract infection 303725610 N39.0 Kidney stone 41277097 N2 0.0 Chronic th oracic back pain 8237031813 45931 M54.6 Microscopic hematuria 19 9343673 R31.29 [id number] Silvio Valdez MD [facility] Urology [address] [facility] [place] [address] 09/25/2023 14:26:57 09/25/2023 15:25:02 Recurrent urinary tract infection 199765826 N39.0 Kidney stone 35789128 N2 0.0 Microscopic hematuria 19 5670993 R31.29 [id number] [facility] [address] [facility] [address] [place] [address] 02/23/2025 13:48:33 02/23/2025 14:17:11 Recurrent urinary tract infection 074168740 N39.0 Will check lab work. Will send urine off for a culture. Will see patient back in 1 week. 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 Patient will follow up in 2 weeks. Call the office if anything persists or worsens. 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 see above Health Concerns Section Related Observation LastModified by Organization Detai ls LastModified Time None Recorded Concern Status LastModified by Organization Details LastModified Time None Recorded Advance Directives Directive N: Payers Insurance Date Sequence Insurance Name Policy Number Policy Valdivia Covered Member ID Valdivia Member ID Guarantor Name 09/18/2023 1 [facility] [id number] [facility] 02/27/2025 1 [facility] (MEDICAID HMO) [facility] [id number] [facility] Notes Date Note [...] time. 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 Micheline Lackey MD [facility] [facility], [place], [address], [facility] & [place] 04/18/2023 12:50:43 08/07/2023 text/html Location: Histor y [...] on 07/27/2022. She is status post hysterectomy. MD [address] , [place], [address], [facility] - [facility] Psych[facility] & [place] 08/07/2023 15:35:17 09/25/2023 text/html Patient returns to [...] on 07/27/2022. She is status post hysterectomy. MD [address], [place], [address], [place] - [facility] & [place] 09/25/2023 15:30:10 02/23/2025 text/html patient presents to [...] 2025. Marilou David APRN [address], [place], [address], [place] [facility] & [place] 02/24/2025 10:59:38 03/02/2025 text/html patient presents to clinic for follow up. Urine culture results received. Patient denies any fever. She is scheduled to have surgery to remove her stone on . Marilou David APRN [address], [place], [address], [place] [facility] & [place] 03/02/2025 13:35:40 OBGyn Episode No OBEpisode recorded.
--- OUTSIDE RECORDS SUMMARY | 2025-03-18 17:07 | XMS_ITS | Data Portability ---
Author Organization [facility] Mahamed morgan, AB[facility] [place] [facility] Address [address] [facility] [address] [place] [address] Assessment No assessment recorded. Plan of Treatment Reminders Order Date Submit Date Provider Last Modified By Organization Details Last Modified Time Details Appointments None recorded. Lab None recorded. Referral aquatic therapy referral 2017 018 [email or web address] 2 Not available 8 11:14:18 cognitive behavioral therapy referral 2017 018 [email or web address] 2 [facility] [address] [facility], [place], [address], 8 11:14:19 occupationa l therapist referral 2017 018 [email or web address] 2 Not available 8 11:14:17 Procedures None recorded. Surgeries None recorded. Imaging None recorded. Medication Orders None recorded. Patient TargetsNo targets recorded. Patient Instructions Encounter Date Encounter Id Patient Instructions Last Modified By Organization Details Last Modified Time 08/13/2018 [id number] learning about healthy weight Not available 08/13/2018 [...] Name and Address Organization Details Recorded Time 707881 aspirin medicatio n Not available Not available Not available 08/13/2018 1191 RxNorm Melinda Hudson [facility] 8 10:01:54 Medications Name Sig [...] Address Organization Details Last Updated DateTime 8 125321. 12 g 48.2 kg/m2 160.02 cm 18 /min 61 /min 132 mm[Hg] 96 mm[Hg] Melinda Hudson [facility] 8 10:06:40 Social History Question Answer Notes LastModified by Organizat ion Details LastModified Time Tobacco Smoking Status Never Smoker Melinda Hudson [facility] 08/13/2018 10:02:03 What Was The Date Of Your Most Recent Tobacco Screening? 08/13/2018 Information n ot available 12/15/2019 Sex: Unknown Functional Status None recorded. Mental Status None recorded. Family History Relationship Description Onset Age of this Age Resolved Age Notes LastModified by Organization Details LastModified Time Father No current problems or disability [email or web address] Not available 08/13 10:02:01 Mother No current problems or disability [email or web address] Not available 08/13 10:02:01 Medical History Condition [...] SNOMED-CT Code Diagnosis ICD10 Code Diagnosis Note [id number] CLIFF BARBER MD [facility] [address] [place] [address] 08/13/2018 09:13:44 08/13/2018 10:48:47 Pain of multiple joints 49888757 M25.50 she has clinical features of Dixon OA. no features of an inflammato ry arthritis noted. no features of rheumatoid noted. 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 would suggest to avoid steroids and start OT as stated below. she can RTC with me as prn. Fibromyalgia 937923275 M 79.7 she has clinical features suggestive [...] OT to help with the ROM and psychiatric mental health nurse. 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 Health Concerns Section Related Observation LastModified by Organization Detai ls LastModified Time None Recorded Concern Status LastModified by Organization Details LastModified Time None Recorded Advance Directives Directive None Recorded Payers Insurance Date Sequence Insurance Name Policy Number Policy Valdivia Covered Member ID Valdivia Member ID Guarantor Name 02/03/2024 1 [facility] ([facility]ICAID [id number] 01/24/2024 1 [place] [place]FS/TRADITIO NAL Lissy [place] [id number] Lissy [facility] 02/04/2024 1 [facility] (MEDICAID HMO) [facility] [id number] [facility] 01/31/2024 1 [facility] (PPO) [id number] Lissy [facility] [id number] Lissy [facility] Notes Date Note Type Note [...] and a normal TSH. CLIFF BARBER MD [facility] [place], [address], [facility] 08/13/2018 17:00:47 OBGyn Episode No OBEpisode recorded.
[2025-03-18 18:47] LABS: 25-OH Vitamin D, Total 35.6 ng/mL (30-100)
[2025-03-23 17:49] LABS: Calcium, Ionized 4.8 mg/dL (4.5-5.6)
== END 2025-03-18 23:59 | disposition home or self-care (01) ==
LOC: LAB 17:06
PROVIDERS: PCP Internal Medicine; Visit Provider Surgery
DX: E21.0 Primary hyperparathyroidism (principal)
CPT/HCPCS: 36415; 82306; 82330; 83970

== ENCOUNTER 2025-03-19 12:30 | Outpatient (CLI) | payer OTHER, SELFPAY ==
--- OUTSIDE RECORDS SUMMARY | 2025-03-19 12:33 | XMS_ITS | Continuity of Care Document ---
Author Organization [facility] [place] Infectious Disease -[address] Address [address] [place] [address] Care Team Providers Care Ranch Cook Name Role Phone ZAHRAA BENAVIDES Primary Care Provider Assessment No assessment recorded. Plan of Treatment Reminders Order Date Submit Date Provider Last Modified By Organization Details Last Modified Time Details Appointments None record ed. Lab None record ed. Referral None record ed. Procedures None record ed. Surgeries None record ed. Imaging None record ed. Medication Orders None record ed. Patient TargetsNo targets recorded. Patient InstructionsNo instructions recorded. Reason for Referral None Reported. Problems Name Problem SNOMED Code Status Onset Date Resolution Date Notes Provider Name and Address Organization Details Recorded Time Syncope 349273735 Active 2021 Malina Hernandez DO [address], [place], [address] , [facility] & [place] 2 15:33:04 Hypersomnia 37172028 Active 2021 Malina Hernandez DO [address], [place], [address] [facility] & [place] 2 15:34:08 Problem Notes None recorded. Procedures Surgical History Date Name Laterality Status Provider Name and Address Organization Details Recorded Time 09/25/20 23 Cystoscopy-Female completed Silvio Valdez MD [address] , [place], [address], [facility] & [place] 09/25/2023 15:26:11 04/04/20 22 Date of Last Pap Smear completed Vandana Harris [facility] & [place] 10/03/2022 14:31:43 10/28/19 22 Network Consultant Surgery completed Vandana ELLER - [facility] [place] & [place] 10/03/2022 14:45:45 10/28/19 17 Cholecystectomy completed Vandana ELLER - [facility] & [place] 10/03/2022 14:32:27 10/28/19 14 Other completed Vandana ELLER - [facility] & [place] 10/03/2022 14:44:51 cardiac catheterization completed Vandana ELLER - [facility] & [place] 10/03/2022 14:46:31 strabismus surgery completed Vandana ELLER - [facility] & [place] 10/03/2022 14:55:15 Imaging Results None recorded. Procedure Notes None recorded. Medical Equipment None Reported. Allergies Allergen ID Allergen Name Allergen Category Reaction Reaction Severity Criticality Documentation Date Start Date Code Code System Note Provider Name and Address Organization Details Recorded Time 29563 aspirin medicatio n chest pain wheezing moderate severe Not available 10/02/2022 1191 RxNorm Vandana catherine, RAFITA - [facility] & [place] 09:22:42 38139 Bactrim medicatio n arthralgi a (joint pain) muscle cramps severe severe Not available 10/02/2022 03156 9 RxNorm Vandana catherine, RAFITA - [facility] & [place] 09:22:49 67830 insect venom environme nt confusion cough dizziness fever flushing headache wheezing moderate moderate moderate mild moderate moderate moderate Not available 10/02/2022 42241 UNK Vandana catherine, RAFITA - [facility] & [place] 09:23:13 00867 Pneumococ georges vaccine Not available anaphylax is chest pain facial swelling nausea rash wheezing moderate moderate moderate moderate moderate moderate Not available 10/02/2022 00312 7 RxNorm Vandana Steven null, [place] - [facility] & [place] 09:23:25 95233 rosuvasta tin medicatio n eye swelling facial swelling respirato ry distress moderate moderate moderate Not available 10/02/2022 00672 2 RxNorm RAFITA Reed - [facility] - [place] & [place] 2 09:23:35 Medications Name Sig Start Date [...] % 60 /min 97.7 [degF] 49.6 kg/m2 372371. 86 g 119 mm[Hg] 79 mm[Hg] Bianca Smith [facility] & [place] 5 13:31:54 Social History Question Answer Notes LastModified by [employer] Details LastModified Time Tobacco Smoking Status Never Smoker Vandana Beckergodfrey catherine, [facility] & [place] 10/03/2022 14:32:09 Do You Have An Advance Directive? No Information not available 10/03/2022 Are You Blind Or Do You Have Difficulty Seeing? No Information not available 10/03/2022 What Was The Date Of Your Most Recent Tobacco Screening? 09/17/2022 Information not available 10/03/2022 Do You Have Any Pets? Yes [email or web address] Information not available 09/25/2023 Are You Passively Exposed To Smoke? No Information not available 10/03/2022 Are You Currently In School? No MASTERS [email or web address] Information not available 09/25/2023 Sex: Female Functional Status Question Answer Note LastModified by [employer] Details LastModified Time Do you use any illicit or recreational drugs? No Information not available 10/03/2022 What is your level of alcohol consumption? 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 Occasional Information not available 10/03/2022 Mental Status Question Answer Note LastModified by Organization D etails LastModified Time Do you feel stressed (tense, restless, nervous, or anxious, or unable to sleep at night)? [id number] Information not available 10/03/2022 Family History Relationship [...] SNOMED-CT Code Diagnosis ICD10 Code Diagnosis Note [id number] [facility] [address] [facility] [address] [place] [address] 02/23/2025 13:48:33 02/23/2025 14:17:11 Recurrent urinary tract infection 216178841 N39.0 Will check lab work. Will send urine off for a culture. Will see patient back in 1 week. 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 Patient will follow up in 2 weeks. Call the office if anything persists or worsens. 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 Urine culture results received. Patient denies any fever. She is scheduled to have surgery to remove her stone on . Marilou David, SEWING MACHINES SALESPERSON [address], [place], [address], [facility] [place] [facility] [place] 03/02/2025 13:35:40 OBGyn Episode No OBEpisode recorded.
--- OUTSIDE RECORDS SUMMARY | 2025-03-19 12:33 | XMS_ITS | Continuity of Care Document ---
Author Organization [facility] Infectious Disease -105 Address [address] [facility] [address] [place] [address] Care Team Providers Care Emergency Manager Name Role Phone SHERI BENAVIDESGHT Primary Care Provider Assessment No assessment recorded. Plan of Treatment Reminders Order Date Submit Date Provider Last Modified By Organization Details Last Modified Time Details Appointments None recorded. Lab urinalysis, dipstick [address] Infectious Disease -105, [address] [facility] [address], [place], [address], 14:18:52 CBC w/ diff 2024 025 [facility] (Registration ), [address] [facility] [facility], [place], [address], 16:11:55 CMP, serum or plasma 2024 025 [facility] (Registration ), [address] [facility] [facility], [place], [address], 5 15:39:03 ESR (erythrocyt e sedimentati on rate), blood [address] (Registration ), [address] [facility] [facility], [place], [address], 5 08:54:47 C-reactive protein, quantitativ e, serum or plasma 2024 025 [email or web address] [facility] (Registration ), [address], [place], [address], 08:54:48 culture, urine 2024 025 [facility], [address], [address], [place], [address], 19:09:52 Referral None recorded. Procedures None recorded. Surgeries None recorded. Imaging None recorded. Medication Orders None recorded. Patient TargetsNo targets recorded. Patient InstructionsNo instructions recorded. Reason for Referral None Reported. Results Created Date Observation Date Name Description Value Unit Range Abnormal Flag Note LastModifiedBy Organization Detail LastModifiedTime 02/24/2002/23/2025 urina lysis , dipst ick Leukocytes (reference range) trace Not Available [facility] Infectious Disease -[facility] [address] [facility] [facility] [address], [place], [address], 02/23/2025 14:16:48 02/24/20 25 02/23/2025 urina lysis , dipst ick Nitrite (reference range:) negati ve Not Available [facility] Infectious Disease -[facility] [address], [place], [address], 02/23/2025 14:16:48 02/24/20 25 02/23/2025 urina lysis , dipst ick Urobilinogen (reference range) 0.2 Not Available [facility] Infectious Disease -[facility] [address], [place], [address], 02/23/2025 14:16:48 02/24/20 25 02/23/2025 urina lysis , dipst ick Protein (reference range) negati ve Not Available [facility] Infectious Disease -[facility] [address] [facility] [address], [place], [address], 02/23/2025 14:16:48 02/24/20 25 02/23/2025 urina lysis , dipst ick pH (reference range 5-8.5) 6.0 Not Available [place] [address] [address] [facility] [address], [place], [address], 02/23/2025 14:16:48 02/24/20 25 02/23/2025 urina lysis , dipst ick Blood (reference range:) small Not Available [place] [address] [address] [facility] [address], [place], [address], 02/23/2025 14:16:48 02/24/20 25 02/23/2025 urina lysis , dipst ick Specific [place] (reference range) 1.015 Not Available [place] [address] [address] [facility] [address], [place], [address], 02/23/2025 14:16:48 02/24/20 25 02/23/2025 urina lysis , dipst ick Ketone (reference range) negati ve Not Available [place] [address] [address] [facility] [address], [place], [address], 02/23/2025 14:16:48 02/24/20 25 02/23/2025 urina lysis , dipst ick Bilirubin (reference range) negati ve Not Available [place] [address] [address] [facility] [address], [place], [address], 02/23/2025 14:16:48 02/24/20 25 02/23/2025 urina lysis , dipst ick Glucose (reference range) 500 Not Available [place] [address] [address] [facility] [address], [place], [address], 02/23/2025 14:16:48 02/24/20 25 02/23/2025 urina lysis , dipst ick Color (reference range: yellow-brown ) Dark Yellow Not Available [facility] Infectious Disease -[address], [place], [address], 02/23/2025 14:16:48 Result Notes None recorded. Problems Name Problem SNOMED Code Status Onset Date Resolution Date Notes Provider Name and Address Organization Details Recorded Time Syncope 678211163 Active 2021 Malina Hernandez DO [address] [facility], [place], [address] , [place] - [facility] - [place] & [place] 15:33:04 Hypersomnia 90318821 Active 2021 Malina Hernandez DO [address] [facility], [place], [address] , [place] - [facility] [place] & [place] 15:34:08 Problem Notes None recorded. Procedures Surgical History Date Name Laterality Status Provider Name and Address Organization Details Recorded Time 09/25/20 23 Cystoscopy-Female completed Silvio Valdez MD [address] [facility], [place], [address], [place] - [facility] - [place] & [place] 09/25/2023 15:26:11 04/04/20 22 Date of Last Pap Smear completed Vandana Dalla [place] - [facility] - [place] & [place] 10/03/2022 14:31:43 10/28/19 22 Associate Brand Manager Surgery completed Vandana Dalla [place] - [place] [place] & [place] 10/03/2022 14:45:45 10/28/19 17 Cholecystectomy completed Vandana Dalla [place] & [place] 10/03/2022 14:32:27 10/28/19 14 Other completed Vandana Dalla [place] & [place] 10/03/2022 14:44:51 cardiac catheterization completed Vandana Dalla [place] & [place] 10/03/2022 14:46:31 strabismus surgery completed Vandana Dalla [place] - [facility] [place] & [place] 10/03/2022 14:55:15 Imaging Results None recorded. Procedure Notes None recorded. Medical Equipment None Reported. Allergies Allergen ID Allergen Name Allergen Category Reaction Reaction Severity Criticality Documentation Date Start Date Code Code System Note Provider Name and Address Organization Details Recorded Time 73756 aspirin medicatio n chest pain wheezing moderate severe Not available 10/02/2022 1191 RxNorm Vandana catherine, [facility] [place] 2 09:22:42 94134 Bactrim medicatio n arthralgi a (joint pain) muscle cramps severe severe Not available 10/02/2022 37145 9 RxNorm Vandana catherine, RAFITA DARLING [facility] & [place] 2 09:22:49 93435 insect venom environme nt confusion cough dizziness fever flushing headache wheezing moderate moderate moderate mild moderate moderate moderate Not available 10/02/2022 19181 UNK Vandana catherine, RAFITA Shea [facility] & [place] 2 09:23:13 67971 Pneumococ georges vaccine Not available anaphylax is chest pain facial swelling nausea rash wheezing moderate moderate moderate moderate moderate moderate Not available 10/02/2022 11656 7 RxNorm Vandana catherine, RAFITA DARLING [facility] & [place] 2 09:23:25 15916 rosuvasta tin medicatio n eye swelling facial swelling respirato ry distress moderate moderate moderate Not available 10/02/2022 58817 2 RxNorm Vandana catherine, RAFITA DARLING [facility] & [place] 2 09:23:35 Medications Name Sig [...] % 80 /min 98.6 [degF] 49.6 kg/m2 249141. 86 g 116 mm[Hg] 100 mm[Hg] Bianca Smith [place] - [facility] - [place] & [place] 5 13:59:18 Social History Question Answer Notes LastModified by Organizat ion Details LastModified Time Tobacco Smoking Status Never Smoker Vandana catherine, [place] - [facility] & [place] 10/03/2022 14:32:09 Do You Have An Advance Directive? No Information not available 10/03/2022 Are You Blind Or Do You Have Difficulty Seeing? No Information not available 10/03/2022 What Was The Date Of Your Most Recent Tobacco Screening? 09/17/2022 Information not available 10/03/2022 Do You Have Any Pets? 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 Occasional Information not available 10/03/2022 Mental Status Question Answer Note LastModified by Organization D etails LastModified Time Do you feel stressed (tense, restless, nervous, or anxious, or unable to sleep at night)? [id number] Information not available 10/03/2022 Family History Relationship [...] SNOMED-CT Code Diagnosis ICD10 Code Diagnosis Note [id number] Marilou Herbert in, PAINT LINE SUPERVISOR [facility] Infectiou s Disease -105 [address] [facility] [address] [place] [address] 02/23/2025 13:48:33 02/23/2025 14:17:11 Recurrent urinary tract infection 600802436 N39.0 Will check lab work. Will send urine off for a culture. Will see patient back in 1 week. Health Concerns Section Related Observation LastModified by Organization Detai ls LastModified Time None Recorded Concern Status LastModified by Organization Details LastModified Time None Recorded Payers Encounter Date Sequence Insurance Name Policy Number Policy Vladivia Covered Member ID Valdivia Member ID Guarantor Name 02/23/2025 1 AENA [facility] (MEDICAID HMO) [facility] [id number] [facility] Notes Date Note Type [...] with urology in April 2025. Marilou David, PREETI [address], [place], [address], [facility] - [facility] - [place] & [place] 02/24/2025 10:59:38 OBGyn Episode No OBEpisode recorded.
[2025-03-19] MEDS: SODIUM CHLORIDE 0.9% 50ML BAG 50 ML IV (12:37)
[2025-03-19] MEDS: ERTAPENEM SODIUM 1 GM in 0.9 % SODIUM CHLORIDE 50 ML IV (12:37)
[2025-03-19 12:40] VITALS: BP 118/76; PULSE 51; RESP 18; TEMP 36.4; O2SAT 98
[2025-03-19] MEDS: SODIUM CHLORIDE 0.9% 10ML FLUSH SYRINGE 10 ML IV (13:07)
[2025-03-19 13:15] VITALS: BP 121/69; PULSE 56; RESP 18; O2SAT 98
== END 2025-03-19 13:15 | disposition home or self-care (01) ==
LOC: INF 12:31
PROVIDERS: PCP Internal Medicine; Visit Provider Internal Medicine Adolescent Medicine
DX: N39.0 Urinary tract infection, site not specified (principal)
CPT/HCPCS: 96365; J1335

== ENCOUNTER 2025-03-20 12:32 | Outpatient (CLI) | payer OTHER, SELFPAY ==
--- OUTSIDE RECORDS SUMMARY | 2025-03-20 12:35 | XMS_ITS | Continuity of Care Document ---
Author Organization [facility] Infectious Disease -105 Address [address] [facility] [address] [place] [address] Care Team Providers Care Regulatory Submissions Associate Name Role Phone SHERI BENAVIDESGHT Primary Care Provider Assessment No assessment recorded. Plan of Treatment Reminders Order Date Submit Date Provider Last Modified By Organization Details Last Modified Time Details Appointments None recorded. Lab urinalysis, dipstick [address] Infectious Disease -105, [address] [facility] [address], [place], [address], 14:18:52 CBC w/ diff 2024 025 [facility] (Registration ), [address] [facility], [place], [address], 16:11:55 CMP, serum or plasma 2024 025 [facility] (Registration ), [address] [facility], [place], [address], 5 15:39:03 ESR (erythrocyt e sedimentati on rate), blood [address] (Registration ), [address] [facility], [place], [address], 5 08:54:47 C-reactive protein, quantitativ e, serum or plasma 2024 025 [email or web address] [facility] (Registration ), [address], [place], [address], 08:54:48 culture, urine 2024 025 [facility], [address], [address], [place], [address], 19:09:52 Referral None recorded. Procedures None recorded. Surgeries None recorded. Imaging None recorded. Medication Orders None recorded. Patient TargetsNo targets recorded. Patient InstructionsNo instructions recorded. Reason for Referral None Reported. Results Created Date Observation Date Name Description Value Unit Range Abnormal Flag Note LastModifiedBy Organization Detail LastModifiedTime 02/24/2002/23/2025 urina lysis , dipst ick Leukocytes (reference range) trace Not Available [facility] Infectious Disease -[facility] [address] [facility] [address], [place], [address], 02/23/2025 14:16:48 02/24/20 25 02/23/2025 urina lysis , dipst ick Nitrite (reference range:) negati ve Not Available [facility] [place] Infectious Disease -[facility] [address], [place], [address], 02/23/2025 14:16:48 02/24/20 25 02/23/2025 urina lysis , dipst ick Urobilinogen (reference range) 0.2 Not Available [facility] Infectious Disease -[facility] [address], [place], [address], 02/23/2025 14:16:48 02/24/20 25 02/23/2025 urina lysis , dipst ick Protein (reference range) negati ve Not Available [facility] [place] Infectious Disease -[facility] [address] [facility] [address], [place], [address], 02/23/2025 14:16:48 02/24/20 25 02/23/2025 urina lysis , dipst ick pH (reference range 5-8.5) 6.0 Not Available [place] [address] [address] [facility] [address], [place], [address], 02/23/2025 14:16:48 02/24/20 25 02/23/2025 urina lysis , dipst ick Blood (reference range:) small Not Available [place] [address] [address] [facility] [address], [place], [address], 02/23/2025 14:16:48 02/24/20 25 02/23/2025 urina lysis , dipst ick Specific [place] (reference range) 1.015 Not Available [place] [address] [address] [facility] [address], [place], [address], 02/23/2025 14:16:48 02/24/20 25 02/23/2025 urina lysis , dipst ick Ketone (reference range) negati ve Not Available [place] [address] [address] [facility] [address], [place], [address], 02/23/2025 14:16:48 02/24/20 25 02/23/2025 urina lysis , dipst ick Bilirubin (reference range) negati ve Not Available [place] [address] [address] [facility] [address], [place], [address], 02/23/2025 14:16:48 02/24/20 25 02/23/2025 urina lysis , dipst ick Glucose (reference range) 500 Not Available [place] [address] [address] [facility] [address], [place], [address], 02/23/2025 14:16:48 02/24/20 25 02/23/2025 urina lysis , dipst ick Color (reference range: yellow-brown ) Dark Yellow Not Available [facility] [place] Infectious Disease -[address], [place], [address], 02/23/2025 14:16:48 Result Notes None recorded. Problems Name Problem SNOMED Code Status Onset Date Resolution Date Notes Provider Name and Address Organization Details Recorded Time Syncope 027765796 Active 2021 Malina Hernandez DO [address] [facility], [place], [address] , [place] [facility] - [place] & [place] 15:33:04 Hypersomnia 62914259 Active 2021 Malina Hernandez DO [address] [facility], [place], [address] , [place] [facility] [place] & [place] 15:34:08 Problem Notes None recorded. Procedures Surgical History Date Name Laterality Status Provider Name and Address Organization Details Recorded Time 09/25/20 23 Cystoscopy-Female completed Silvio Valdez MD [address] [facility], [place], [address], [place] [facility] [place] & [place] 09/25/2023 15:26:11 04/04/20 22 Date of Last Pap Smear completed Vandana Dalla [place] - [facility] & [place] 10/03/2022 14:31:43 10/28/19 22 Flat Locker Surgery completed Vandana Dalla [place] - [place] & [place] 10/03/2022 14:45:45 10/28/19 17 Cholecystectomy completed Vandana Dalla [place] & [place] 10/03/2022 14:32:27 10/28/19 14 Other completed Vandana Dalla [place] & [place] 10/03/2022 14:44:51 cardiac catheterization completed Vandana Dalla [place] & [place] 10/03/2022 14:46:31 strabismus surgery completed Vandana Dalla [place] - [place] & [place] 10/03/2022 14:55:15 Imaging Results None recorded. Procedure Notes None recorded. Medical Equipment None Reported. Allergies Allergen ID Allergen Name Allergen Category Reaction Reaction Severity Criticality Documentation Date Start Date Code Code System Note Provider Name and Address Organization Details Recorded Time 16321 aspirin medicatio n chest pain wheezing moderate severe Not available 10/02/2022 1191 RxNorm Vandana catherine, RAFITA SHLOMOR [facility] & [place] 2 09:22:42 51612 Bactrim medicatio n arthralgi a (joint pain) muscle cramps severe severe Not available 10/02/2022 36834 9 RxNorm Vandana catherine, RAFITA DARLING [facility] & [place] 2 09:22:49 14677 insect venom environme nt confusion cough dizziness fever flushing headache wheezing moderate moderate moderate mild moderate moderate moderate Not available 10/02/2022 10647 UNK Vandana catherine, RAFITA Shea [facility] & [place] 2 09:23:13 89494 Pneumococ georges vaccine Not available anaphylax is chest pain facial swelling nausea rash wheezing moderate moderate moderate moderate moderate moderate Not available 10/02/2022 52185 7 RxNorm Vandana catherine, RAFITA DARLING [facility] & [place] 2 09:23:25 44339 rosuvasta tin medicatio n eye swelling facial swelling respirato ry distress moderate moderate moderate Not available 10/02/2022 87408 2 RxNorm Vandana catherine, RAFITA DARLING [facility] & [place] 2 09:23:35 Medications Name Sig Start Date [...] % 80 /min 98.6 [degF] 49.6 kg/m2 645318. 86 g 116 mm[Hg] 100 mm[Hg] Bianca Smith [place] - [place] - [place] & [place] 5 13:59:18 Social History Question Answer Notes LastModified by Organizat ion Details LastModified Time Tobacco Smoking Status Never Smoker Vandana catherine, [place] - [place] [facility] & [place] 10/03/2022 14:32:09 Do You Have An Advance Directive? No Information not available 10/03/2022 Are You Blind Or Do You Have Difficulty Seeing? No Information not available 10/03/2022 What Was The Date Of Your Most Recent Tobacco Screening? 09/17/2022 Information not available 10/03/2022 Do You Have Any Pets? Yes [email or web address] Information not available 09/25/2023 Are You Passively Exposed To Smoke? No Information not available 10/03/2022 Are You Currently In School? No MASTERS [email or web address] Information not available 09/25/2023 Sex: Female Functional Status Question Answer Note LastModified by Organizat ion Details LastModified Time Do you use any illicit or recreational drugs? No Information not available 10/03/2022 What is your level of alcohol consumption? 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 Occasional Information not available 10/03/2022 Mental Status Question Answer Note LastModified by Organization D etails LastModified Time Do you feel stressed (tense, restless, nervous, or anxious, or unable to sleep at night)? [id number] Information not available 10/03/2022 Family History Relationship [...] SNOMED-CT Code Diagnosis ICD10 Code Diagnosis Note [id number] Marilou Herbert in, REGIONAL COORDINATOR [facility] [place] Infectiou s Disease -105 [address] [facility] [address] [place] [address] 02/23/2025 13:48:33 02/23/2025 14:17:11 Recurrent urinary tract infection [id number] N39.0 Will check lab work. Will send [...] Member ID Guarantor Name 02/23/2025 1 AENA [facility] (MEDICAID HMO) [facility] [id number] [facility] Notes Date Note Type Note [...] 2025. Marilou David, PREETI [address], [place], [address], [facility] - [facility] - [place] & [place] 02/24/2025 10:59:38 OBGyn Episode No OBEpisode recorded.
--- OUTSIDE RECORDS SUMMARY | 2025-03-20 12:35 | XMS_ITS | Data Portability ---
Author Organization [facility], [facility]HA[facility] CLOSED Address [address] [facility] [address] [place] [address] Assessment No assessment recorded. Plan of Treatment Reminders Order Date Submit Date Provider Last Modified By Organization Details Last Modified Time Details Appointments None recorded. Lab None recorded. Referral aquatic therapy referral 2017 018 [email or web address] 2 Not available 8 11:14:18 cognitive behavioral therapy referral 2017 018 [email or web address] [facility] [address] [facility], [address], [place], [address], 8 11:14:19 occupationa l therapist referral 2017 018 [email or web address] 2 Not available 8 11:14:17 Procedures None recorded. Surgeries None recorded. Imaging None recorded. Medication Orders None recorded. Patient TargetsNo targets recorded. Patient Instructions Encounter Date Encounter Id Patient Instructions Last Modified By Organization Details Last Modified Time 08/13/2018 [id number] learning about healthy weight Not available 08/13/2018 [...] Name and Address Organization Details Recorded Time 317839 aspirin medicatio n Not available Not available Not available 08/13/2018 1191 RxNorm Melinda Hudson [facility] 8 10:01:54 Medications Name Sig [...] Body height Respiratory rate Heart rate Systolic And Diastolic Provider Name and Address Organization Details Last Updated DateTime 8 766631. 12 g 48.2 kg/m2 160.02 cm 18 /min 61 /min 132/96 mm[Hg] Melnida Hudson [facility] 8 10:06:40 Social History Question Answer Notes LastModified by Organizat ion Details LastModified Time Tobacco Smoking Status Never Smoker Melinda Hudson [facility] 08/13/2018 10:02:03 What Was The Date Of Your Most Recent Tobacco Screening? 08/13/2018 Information n ot available 12/15/2019 Sex: Unknown Functional Status None recorded. Mental Status None recorded. Family History Relationship Description Onset Age of this Age Resolved Age Notes LastModified by Organization Details LastModified Time Father No current problems or disability [email or web address] Not available 08/13 10:02:01 Mother No current problems or disability [email or web address] Not available 08/13 10:02:01 Medical History Condition [...] SNOMED-CT Code Diagnosis ICD10 Code Diagnosis Note [id number] CLIFF BARBER MD RHEUMATOL OGY [address] [place] [address] 08/13/2018 09:13:44 08/13/2018 10:48:47 Pain of multiple joints 59551313 M25.50 she has clinical features of Dixon OA. no features of an inflammato ry arthritis noted. no features of rheumatoid noted. 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 would suggest to avoid steroids and start OT as stated below. she can RTC with me as prn. Fibromyalgia 574633867 M 79.7 she has clinical features suggestive [...] OT to help with the ROM and strapper and buffer. 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 Health Concerns Section Related Observation LastModified by Organization Detai ls LastModified Time None Recorded Concern Status LastModified by Organization Details LastModified Time None Recorded Advance Directives Directive None Recorded Payers Insurance Date Sequence Insurance Name Policy Number Policy Valdivia Covered Member ID Valdivia Member ID Guarantor Name 02/03/2024 1 [facility] ([facility] [id number] [facility] 01/24/2024 1 [place] [employer] [place] FFS/TRADITIO NAL Lissy Morgan Pearson [id number] Lissy Morgan Pearson 02/04/2024 1 [facility] [id number] [facility] 01/31/2024 1 [facility] [id number] Lissy Morgan Pearson [id number] Lissy Morgan Pearson Notes Date Note Type Note Provider Name [...] and a normal TSH. CLIFF BARBER MD [address] [place], [address], [facility] 08/13/2018 17:00:47 OBGyn Episode No OBEpisode recorded.
--- OUTSIDE RECORDS SUMMARY | 2025-03-20 12:35 | XMS_ITS | Data Portability ---
Author Organization [facility] - [place] & [place] Alejandro ADMIN Address [address] [place] [address] Care Team Providers Care Parts Room Assistant Name Role Phone ZAHRAA BENAVIDES Primary Care [...] in 6 months with KUB and UA. [email or web address] Not available 09/25/2023 15:29:09 Plan of Treatment Reminders Order Date Submit Date Provider Last Modified By Organization Details Last Modified Time Details Appointments None recorded. Lab urinalysis, dipstick 2024 025 [facility], [address], [place], [address], 5 14:18:52 CBC w/ diff 2024 025 [facility] (Registration ), [address], [place], [address], 5 16:11:55 CMP, serum or plasma 2024 025 [facility] (Registration ), [address], [place], [address], 5 15:39:03 ESR (erythrocyt e sedimentati on rate), blood [address] (Registration ), [address] [facility], [place], [address], 5 08:54:47 C-reactive protein, quantitativ e, serum or plasma [address] (Registration ), [address], [place], [address], 5 08:54:48 culture, urine 2024 025 [place], [address], [address], [place], [address], 5 19:09:52 urinalysis, dipstick 2022 023 [email or web address] [facility], [address], [address], [place], [address], 3 16:08:29 Referral None recorded. Procedures None [...] usal 7.7 - 58.5 Perfo rmed at: [facility] [address] [place] [address] 1269 Lab Direc tor: Los carson PhD, Phone : [phone] Not Available [facility] ([facility]) [address] [facility], [place], [address], 04/03/2023 10:13:10 04/02/20 23 04/03/2023 FSH FSH, serum 5.4 mIU/m L Adult Femal e: Folli cular phase 3.5 - 12.5 Ovula tion phase 4.7 - 21.5 Lutea l phase 1.7 - 7.7 Postm enopa usal 25.8 - 134.8 Perfo rmed at: [facility] [address] [place] [address] 1268 Lab Direc tor: Los carson PhD, Phone : [phone] Not Available [facility] ([facility]) [address] [facility], [place], [address], 04/03/2023 10:14:16 08/07/20 23 08/07/2023 urina lysis , dipst ick Leukocytes (reference range) trace Not Available [facility] [address] [place] [address], [address], 08/07/2023 15:15:15 08/07/2008/07/2023 urina lysis , dipst ick Nitrite (reference range:) negati ve Not Available [facility] [address], [place], [address], 08/07/2023 15:15:15 08/07/20 23 08/07/2023 urina lysis , dipst ick Urobilinogen (reference range) 0.2 Not Available [facility], [place] [address] [place] [address] [address], [place], [address], 08/07/2023 15:15:15 08/07/2008/07/2023 urina lysis , dipst ick Protein (reference range) negati ve Not Available [facility] [address], [place], [address], 08/07/2023 15:15:15 08/07/2008/07/2023 urina lysis , dipst ick pH (reference range 5-8.5) 6.0 Not Available [facility] [address], [place], [address], 08/07/2023 15:15:15 08/07/2008/07/2023 urina lysis , dipst ick Blood (reference range:) small Not Available [facility], [place] [place] [address] [address], [place], [address], 08/07/2023 15:15:15 08/07/2008/07/2023 urina lysis , dipst ick Specific [place] (reference range) 1.015 Not Available [facility] [address], [place], [address], 08/07/2023 15:15:15 08/07/2008/07/2023 urina lysis , dipst ick Ketone (reference range) negati ve Not Available [address], [place], [address], 08/07/2023 15:15:15 08/07/2008/07/2023 urina lysis , dipst ick Bilirubin (reference range) negati ve Not Available [address], [place], [address], 08/07/2023 15:15:15 08/07/20 23 08/07/2023 urina lysis , dipst ick Glucose (reference range) 250 Not Available [facility] [address], [place], [address], 08/07/2023 15:15:15 08/07/20 23 08/07/2023 urina lysis , dipst ick Color (reference range: yellow-brown ) Yellow Not Available [facility] [address], [place], [address], 08/07/2023 15:15:15 02/24/20 25 02/23/2025 CBC AUTO W DIFF WBC 11.3 K/uL 4.0-10 .5 high Not Available [facility] ([facility]) [address] [facility], [place], [address], 02/23/2025 15:02:28 02/24/20 25 02/23/2025 CBC AUTO W DIFF RBC 5.7 M/mm3 4.2-6. 4 Not Available [facility] ([facility]) [address], [place], [address], 02/23/2025 15:02:28 02/24/20 25 02/23/2025 CBC AUTO W DIFF HGB 15.8 gm/dL 12.5-1 6.0 Not Available [facility] ([facility]) [address] [facility], [place], [address], 02/23/2025 15:02:28 02/24/20 25 02/23/2025 CBC AUTO W DIFF HCT 48.8 % 37.0-4 7.0 high Not Available [facility] ([facility]) [address], [place], [address], 02/23/2025 15:02:28 02/24/20 25 02/23/2025 CBC AUTO W DIFF MCV 86.4 fL 78-100 Not Available [facility] ([facility]) [address], [place], [address], 02/23/2025 15:02:28 02/24/20 25 02/23/2025 CBC AUTO W DIFF MCH 28.0 pg 27-31 Not Available [facility] ([facility]) [address], [place], [address], 02/23/2025 15:02:28 02/24/20 25 02/23/2025 CBC AUTO W DIFF MCHC 32.4 g/dL 32-36 Not Available [facility] ([facility]) [address], [place], [address], 02/23/2025 15:02:28 02/24/20 25 02/23/2025 CBC AUTO W DIFF RDW 13.7 % 11.5-1 4.0 Not Available [facility] ([facility]) [address], [place], [address], 02/23/2025 15:02:28 02/24/20 25 02/23/2025 CBC AUTO W DIFF platelet count 380 K/uL 150-45 0 Not Available [facility] ([facility]) [address], [place], [address], 02/23/2025 15:02:28 02/24/20 25 02/23/2025 CBC AUTO W DIFF MPV 10.3 fL 6-9.5 high Not Available [facility] ([facility]) [address], [place], [address], 02/23/2025 15:02:28 02/24/20 25 02/23/2025 CBC AUTO W DIFF neutrophil% 66.5 % 43-65 high Not Available [facility] ([facility]) [address], [place], [address], 02/23/2025 15:02:28 02/24/20 25 02/23/2025 CBC AUTO W DIFF lymphocyte% 24.3 % 20.5-4 5.5 Not Available [facility] ([facility]) [address], [place], [address], 02/23/2025 15:02:28 02/24/20 25 02/23/2025 CBC AUTO W DIFF monocyte% 6.0 % 5.5-11 .7 Not Available [facility] ([facility]) [address], [place], [address], 02/23/2025 15:02:02/24/20 25 02/23/2025 CBC AUTO W DIFF eosinophil% 2.3 % 0.9-2. 9 Not Available [facility] ([facility]) [address] [facility], [place], [address], 02/23/2025 15:02:28 02/24/20 25 02/23/2025 CBC AUTO W DIFF basophil% 0.6 % 0.2-1. 0 Not Available [facility] ([facility]) [address] [place], [address], 02/23/2025 15:02:28 02/24/20 25 02/23/2025 CBC AUTO W DIFF immature granulocytes % 0.3 % 0.0-0. 8 Not Available [facility] ([facility]) [address] [place], [address], 02/23/2025 15:02:28 02/24/20 25 02/23/2025 CBC AUTO W DIFF nucleated red blood cells % 0.0 % Not Available [facility] ([facility]) [address] [place], [address], 02/23/2025 15:02:28 02/24/20 25 02/23/2025 CBC AUTO W DIFF neutrophil# 7.5 K/uL 2.2-4. 8 high Not Available [facility] ([facility]) [address] [facility], [place], [address], 02/23/2025 15:02:28 02/24/20 25 02/23/2025 CBC AUTO W DIFF lymphocyte# 2.7 cell/ mcL 1.3-2. 9 Not Available [facility] ([facility]) [address], [place], [address], 02/23/2025 15:02:28 02/24/20 25 02/23/2025 CBC AUTO W DIFF monocyte# 0.7 cell/ mcL 0.3-0. 8 Not Available [facility] ([facility]) [address] [facility], [place], [address], 02/23/2025 15:02:28 02/24/20 25 02/23/2025 CBC AUTO W DIFF eosinophil# 0.3 cell/ mcL 0-0.2 high Not Available [facility] ([facility]) [address] [facility], [place], [address], 02/23/2025 15:02:28 02/24/20 25 02/23/2025 CBC AUTO W DIFF basophil# 0.1 cell/ mcL 0.0-1. 0 Not Available [facility] ([facility]) [address] [facility], [place], [address], 02/23/2025 15:02:28 02/24/20 25 02/23/2025 CBC AUTO W DIFF immature gramulocytes # 0.03 K/uL Not Available [facility] ([facility]) [address] [facility], [place], [address], 02/23/2025 15:02:28 02/24/20 25 02/23/2025 CBC AUTO W DIFF nucleated red blood cells # 0.00 K/uL Not Available [facility] ([facility]) [address] [facility], [place], [address], 02/23/2025 15:02:28 04/29/02/23/2025 CBC AUTO W DIFF manual differential NO Not Available [facility] ([facility]) [address], [place], [address], 02/23/2025 15:02:28 02/24/20 25 02/23/2025 COMP METAB OLIC PANEL sodium 138 mmol/ L 136-14 5 Not Available [facility] ([facility]) [address], [place], [address], 02/23/2025 15:39:03 02/24/20 25 02/23/2025 COMP METAB OLIC PANEL potassium 3.7 mmol/ L 3.6-5. 0 Not Available [facility] ([facility]) [address] , [place], [address], 02/23/2025 15:39:03 02/24/20 25 02/23/2025 COMP METAB OLIC PANEL chloride 98 mmol/ L 98-107 Not Available [facility] ([facility]) [address] , [place], [address], 02/23/2025 15:39:03 02/24/20 25 02/23/2025 COMP METAB OLIC PANEL carbon dioxide 26.8 mmol/ L 21.0-3 2.0 Not Available [facility] ([facility]) [address] , [place], [address], 02/23/2025 15:39:03 02/24/20 25 02/23/2025 COMP METAB OLIC PANEL anion gap 16.9 Not Available [facility] ([facility]) [address] [place], [address], 02/23/2025 15:39:03 02/24/20 25 02/23/2025 COMP METAB OLIC PANEL glucose 200 mg/dL 70-120 high Not Available [facility] ([facility]) [address], [place], [address], 02/23/2025 15:39:03 02/24/20 25 02/23/2025 COMP METAB OLIC PANEL BUN 12 mg/dL 7-18 Not Available [facility] ([facility]) [address], [place], [address], 02/23/2025 15:39:03 02/24/20 25 02/23/2025 COMP METAB OLIC PANEL creatinine 1.1 mg/dL 0.6-1. 3 Not Available [facility] ([facility]) [address], [place], [address], 02/23/2025 15:39:03 02/24/20 25 02/23/2025 COMP METAB [...] brown ing kiney funct ion. Not Available [facility] ([facility]) [address] , [place], [address], 02/23/2025 15:39:03 02/24/20 25 02/23/2025 COMP METAB OLIC PANEL osmolality (calculated) 293 mOsm/ kg 275-30 1 OSMOL ALITY IS A CALCU LATIO N UTILI ZING THE SERUM /PLAS MA SODIU M, GLUCO SE AND UREA NITRO GEN (BUN) LEVEL S. FOR THE MOST ACCUR ATE RESUL T A MEASU RED SERUM OSMOL ALITY IS SUGGE STED. Not Available [facility] ([facility]) [address], [place], [address], 02/23/2025 15:39:03 02/24/20 25 02/23/2025 COMP METAB OLIC PANEL total protein 8.1 g/dL 6.4-8. 2 Not Available [facility] ([facility]) [address] , [place], [address], 02/23/2025 15:39:03 02/24/20 25 02/23/2025 COMP METAB OLIC PANEL albumin 3.6 g/dL 3.4-5. 0 Not Available [facility] ([facility]) [address] , [place], [address], 02/23/2025 15:39:03 02/24/20 25 02/23/2025 COMP METAB OLIC PANEL globulin 4.5 Not Available [facility] ([facility]) [address], [place], [address], 02/23/2025 15:39:03 02/24/20 25 02/23/2025 COMP METAB OLIC PANEL alb/glob ratio 0.8 0.7-2 Not Available [facility] ([facility]) [address], [place], [address], 02/23/2025 15:39:03 02/24/20 25 02/23/2025 COMP METAB OLIC PANEL calcium 10.2 mg/dL 8.5-10 .5 Not Available [facility] ([facility]) [address], [place], [address], 02/23/2025 15:39:03 02/24/20 25 02/23/2025 COMP METAB OLIC PANEL bilirubin total 0.60 mg/dL 0.10-1 .00 Not Available [facility] ([facility]) [address] [place], [address], 02/23/2025 15:39:03 02/24/20 25 02/23/2025 COMP METAB OLIC PANEL AST (SGOT) 46 U/L 0-37 high Not Available [facility] ([facility]) [address], [place], [address], 02/23/2025 15:39:03 02/24/20 25 02/23/2025 COMP METAB OLIC PANEL ALT (SGPT) 78 U/L 0-65 high Not Available [facility] ([facility]) [address], [place], [address], 02/23/2025 15:39:03 02/24/20 25 02/23/2025 COMP METAB OLIC PANEL alk phosphatase 111 U/L 46-116 Not Available [facility] ([facility]) [address] [facility], [place], [address], 02/23/2025 15:39:03 02/24/20 25 02/23/2025 C-KARLI CTIVE PROTE IN (CRP) C-reactive protein, quant 2.0 mg/dL 0.05-0 .300 high Not Available [facility] ([facility]) [address] [facility], [place], [address], 02/23/2025 15:40:11 02/24/20 25 02/23/2025 SED RATE sed rate auto 9 0-20 Not Available [facility] ([facility]) [address] [facility], [place], [address], 02/23/2025 15:43:35 02/24/20 25 02/27/2025 URINE CULTU RE,CO MPREH ENSIV E urine culture,comp rehensive FINAL REPORT abnormal Not Available [facility] ([facility]) [address], [place], [address], 02/27/2025 19:09:52 02/24/20 25 02/27/2025 URINE CULTU [...] per mL Not Available [facility] ([facility]) [address] [facility], [place], [address], 02/27/2025 19:09:52 02/24/2002/27/2025 URINE CULTU RE,CO MPREH [...] rolin e Not Available [facility] ([facility]) [address] [facility], [place], [address], 02/27/2025 19:09:52 02/24/2002/27/2025 URINE CULTU RE,CO MPREH [...] R S Not Available [facility] ([facility]) [address] [facility], [place], [address], 02/27/2025 19:09:52 02/24/20 25 02/23/2025 urina lysis , dipst ick Leukocytes (reference range) trace Not Available [place] [address], [place], [address], 02/23/2025 14:16:48 02/24/20 25 02/23/2025 urina lysis , dipst ick Nitrite (reference range:) negati ve Not Available [place] [address] [address] [facility] [address], [place], [address], 02/23/2025 14:16:48 02/24/20 25 02/23/2025 urina lysis , dipst ick Urobilinogen (reference range) 0.2 Not Available [place] [address] [address] [facility] [address], [place], [address], 02/23/2025 14:16:48 02/24/20 25 02/23/2025 urina lysis , dipst ick Protein (reference range) negati ve Not Available [place] [address] [address] [facility] [address], [place], [address], 02/23/2025 14:16:48 02/24/20 25 02/23/2025 urina lysis , dipst ick pH (reference range 5-8.5) 6.0 Not Available [place] [address] [address] [facility] [address], [place], [address], 02/23/2025 14:16:48 02/24/20 25 02/23/2025 urina lysis , dipst ick Blood (reference range:) small Not Available [place] [address] [address] [facility] [address], [place], [address], 02/23/2025 14:16:48 02/24/20 25 02/23/2025 urina lysis , dipst ick Specific [place] (reference range) 1.015 Not Available [place] [address] [address] [facility] [address], [place], [address], 02/23/2025 14:16:48 02/24/20 25 02/23/2025 urina lysis , dipst ick Ketone (reference range) negati ve Not Available [place] [address] [address] [facility] [address], [place], [address], 02/23/2025 14:16:48 02/24/20 25 02/23/2025 urina lysis , dipst ick Bilirubin (reference range) negati ve Not Available [place] [address] [address] [facility] [address], [place], [address], 02/23/2025 14:16:48 02/24/20 25 02/23/2025 urina lysis , dipst ick Glucose (reference range) 500 Not Available [place] [address] [address] [facility] [address], [place], [address], 02/23/2025 14:16:48 02/24/20 25 02/23/2025 urina lysis , dipst ick Color (reference range: yellow-brown ) Dark Yellow Not Available [place] [address] [address] [facility] [address], [place], [address], 02/23/2025 14:16:48 Result Notes None recorded. Problems Name Problem SNOMED Code Status Onset Date Resolution Date Notes Provider Name and Address Organization Details Recorded Time Syncope 458945542 Active 2021 Malina Hernandez DO [address], [place], [address] , [facility] - [facility] - [place] & [place] 15:33:04 Hypersomnia 03189031 Active 2021 Malina Hernandez DO [address] [facility], [place], [address] , [place] - [facility] & [place] 15:34:08 Problem Notes None recorded. Procedures Surgical History Date Name Laterality Status Provider Name and Address Organization Details Recorded Time 09/25/20 23 Cystoscopy-Female completed Silvio Valdez MD [address] [facility], [place], [address], [place] - [facility] - [place] & [place] 09/25/2023 15:26:11 04/04/20 22 Date of Last Pap Smear completed Vandana Eugenioa [place] - [facility] - [place] & [place] 10/03/2022 14:31:43 10/28/19 22 Veterinary Practitioner Surgery completed Vandana Dalla [place] - [facility] - [place] & [place] 10/03/2022 14:45:45 10/28/19 17 Cholecystectomy completed Vandana Dalla [place] - [facility] & [place] 10/03/2022 14:32:27 10/28/19 14 Other completed Vandana Dalla [place] - [facility] [place] & [place] 10/03/2022 14:44:51 cardiac catheterization completed Vandana Dalla [place] - [facility] & [place] 10/03/2022 14:46:31 strabismus surgery completed Vandana Dalla [place] - [facility] - [place] & [place] 10/03/2022 14:55:15 Imaging Results None recorded. Procedure Notes None recorded. Medical Equipment None Reported. Allergies Allergen ID Allergen Name Allergen Category Reaction Reaction Severity Criticality Documentation Date Start Date Code Code System Note Provider Name and Address Organization Details Recorded Time 40476 aspirin medicatio n chest pain wheezing moderate severe Not available 10/02/2022 1191 RxNorm Vandana Eugenioa null, [place] - [facility] & [place] 09:22:42 88456 Bactrim medicatio n arthralgi a (joint pain) muscle cramps severe severe Not available 10/02/2022 26600 9 RxNorm Vandana Eugenioa [place], [place] - [facility] & [place] 09:22:49 27539 insect venom environme nt confusion cough dizziness fever flushing headache wheezing moderate moderate moderate mild moderate moderate moderate Not available 10/02/2022 97846 UNK Vandana catherine, [facility] - [facility] & [place] 2 09:23:13 80008 Pneumococ georges vaccine Not available anaphylax is chest pain facial swelling nausea rash wheezing moderate moderate moderate moderate moderate moderate Not available 10/02/2022 14773 7 RxNorm Vandana catherine, [facility] [place] [facility] & [place] 2 09:23:25 25275 rosuvasta tin medicatio n eye swelling facial swelling respirato ry distress moderate moderate moderate Not available 10/02/2022 09705 2 RxNorm Vandana catherine, [facility] - [facility] & [place] 2 09:23:35 Medications [...] % 2 L/min 89 /min 48.3 kg/m2 327471. 39 g 128 mm[Hg] 98 mm[Hg] Phillip Prince [facility] & [place] 3 13:04:48 Date Recorded Body height Body mass index (BMI) Body weight Systolic blood pressure Diastolic blood pressure Provider Name and Address Organization Details Last Updated DateTime 08/07/2023 157.48 cm 49.4 kg/m2 108774.9 4 g 125 mm[Hg] 75 mm[Hg] Britneynevaeh Yee [facility] & [place] 3 15:05:24 Date Recorded Body height Body mass index (BMI) Body weight Systolic blood pressure Diastolic blood pressure Provider Name and Address Organization Details Last Updated DateTime 09/25/2023 157.48 cm 51.2 kg/m2 964835.8 6 g 126 mm[Hg] 76 mm[Hg] Ioana Lucy [facility] & [place] 3 15:07:04 Date Recorded Heart rate Body height Oxygen saturation Oxygen saturation in Arterial blood by Pulse oximetry Heart rate Body temperature Body mass index (BMI) Body weight Systolic blood pressure Diastolic blood pressure Provider Name and Address Organization Details Last Updated DateTime 5 80 /min 160.02 cm 96 % 96 % 80 /min 98.6 [degF] 49.6 kg/m2 188165. 86 g 116 mm[Hg] 100 mm[Hg] Bianca Khanoten [facility] - [facility] & [place] 5 13:59:18 Date Recorded Body height Heart rate Oxygen saturation Oxygen saturation in Arterial blood by Pulse oximetry Heart rate Body temperature Body mass index (BMI) Body weight Systolic blood pressure Diastolic blood pressure Provider Name and Address Organization Details Last Updated DateTime 5 160.02 cm 60 /min 97 % 97 % 60 /min 97.7 [degF] 49.6 kg/m2 345545. 86 g 119 mm[Hg] 79 mm[Hg] Biacna Khanoten [facility] - [facility] & [place] 5 13:31:54 Social History Question Answer Notes LastModified by [employer] Details LastModified Time Tobacco Smoking Status Never Smoker [facility] [place] 10/03/2022 14:32:09 Do You Have [...] Are You Currently In School? No MASTERS [email or web address] Information not available 09/25/2023 Sex: Female Functional Status Question Answer Note LastModified by [employer] ion Details LastModified Time Do you use any illicit or recreational drugs? No Information not available 10/03/2022 What is your level of alcohol consumption? 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 Occasional Information not available 10/03/2022 Mental Status Question Answer Note LastModified by Organization [employer] LastModified Time Do you feel stressed (tense, restless, nervous, or anxious, or unable to sleep at night)? [id number] Information not available 10/03/2022 Family History Relationship [...] SNOMED-CT Code Diagnosis ICD10 Code Diagnosis Note [id number] [facility] [address] [facility],[address] [place] [address] 10/03/2022 14:07:23 10/03/2022 15:38:25 Syncope [id number] R55 She has been experienci ng these stereotypi georges passing out episodes for five years. No definite witnessed convulsion s but some associated brief confusion afterwards .will order EEG to rule out neurologic causes of syncope Hypersomnia [id number] G47 .10 She describes some significan t episodes of pathologic al sleepiness . She will fall asleep without warning in the middle of talking. This is very infrequent but can be suggestive of narcolepsy . Will order PSG with MSLT to evaluate this in more detail. 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 [id number] Silvio Valdez MD [facility] [address] [place] [address],[address] [place] [address] 08/07/2023 14:35:57 08/07/2023 15:40:17 Recurrent urinary tract infection 643541804 N39.0 Kidney stone 25642292 N2 0.0 Chronic th oracic back pain 8635909229 09423 M54.6 Microscopic hematuria 19 9440761 R31.29 [id number] Silvio Valdez MD [facility] [address] [place] [address] 09/25/2023 14:26:57 09/25/2023 15:25:02 Recurrent urinary tract infection 582375257 N39.0 Kidney stone 87694685 N2 0.0 Microscopic hematuria 19 3282063 R31.29 [id number] [facility] [address] [facility] [address] [place] [address] 02/23/2025 13:48:33 02/23/2025 14:17:11 Recurrent urinary tract infection 744584928 N39.0 Will check lab work. Will send urine off for a culture. Will see patient back in 1 week. 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 Patient will follow up in 2 weeks. Call the office if anything persists or worsens. 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 see above Health Concerns Section Related Observation LastModified by Organization Detai ls LastModified Time None Recorded Concern Status LastModified by Organization Details LastModified Time None Recorded Advance Directives Directive N: Payers Insurance Date Sequence Insurance Name Policy Number Policy Valdivia Covered Member ID Valdivia Member ID Guarantor Name 09/18/2023 1 [facility] [id number] [facility] 02/27/2025 1 [facility] (MEDICA[facility]) [facility] [id number] [facility] Notes Date Note Type Note [...] time. Patient states she is seen her zoning administrator for this, was told it is possibly a lymphocele. Micheline Lackey MD [facility] [facility], [place], [address], [facility] & [place] 04/18/2023 12:50:43 08/07/2023 text/html [...] status post hysterectomy. MD Malena Umanz[address] , [place], [address], [facility] - NT [facility] & [place] 08/07/2023 15:35:17 09/25/2023 text/html Patient [...] status post hysterectomy. MD [address], [place], [address], [place] - [facility] & [place] 09/25/2023 15:30:10 02/23/2025 text/html patient presents to [...] 2025. Marilou David APRN [address], [place], [address], [place] - [facility] & [place] 02/24/2025 10:59:38 03/02/2025 text/html patient presents to clinic for follow up. Urine culture results received. Patient denies any fever. She is scheduled to have surgery to remove her stone on . Marilou David APRN [address], [place], [address], [place] - [facility] & [place] 03/02/2025 13:35:40 OBGyn Episode No OBEpisode recorded.
--- OUTSIDE RECORDS SUMMARY | 2025-03-20 12:35 | XMS_ITS | Continuity of Care Document ---
Author Organization [facility] [place] Infectious Disease -[address] [place] [address] Care Team Providers Care Deboning Team Leader Name Role Phone ZAHRAA BENAVIDES Primary Care Provider [phone] Assessment No assessment recorded. Plan of Treatment [...] and Address Organization Details Recorded Time Syncope 452508177 Active 2021 Malina Hernandez DO [address], [place], [address] , [facility] & [place] 2 15:33:04 Hypersomnia 86283098 Active 2021 Malina Hernandez DO [address], [place], [address] [facility] & [place] 2 15:34:08 Problem Notes None recorded. Procedures Surgical History Date Name Laterality Status Provider Name and Address Organization Details Recorded Time 09/25/20 23 Cystoscopy-Female completed Silvio Valdez MD [address] , [place], [address], [facility] & [place] 09/25/2023 15:26:11 04/04/20 22 Date of Last Pap Smear completed Vandana Harris [facility] & [place] 10/03/2022 14:31:43 10/28/19 22 Rail Equipment Operator Surgery completed Vandana ELLER [place] [facility] [place] 10/03/2022 14:45:45 10/28/19 17 Cholecystectomy completed Vandana ELLER - [facility] & [place] 10/03/2022 14:32:27 10/28/19 14 Other completed Vandana ELLER - [facility] & [place] 10/03/2022 14:44:51 cardiac catheterization completed Vandana ELLER - [facility] & [place] 10/03/2022 14:46:31 strabismus surgery completed Vandana ELLER - LP[facility] & [place] 10/03/2022 14:55:15 Imaging Results None recorded. Procedure Notes None recorded. Medical Equipment None Reported. Allergies Allergen ID Allergen Name Allergen Category Reaction Reaction Severity Criticality Documentation Date Start Date Code Code System Note Provider Name and Address Organization Details Recorded Time 28341 aspirin medicatio n chest pain wheezing moderate severe Not available 10/02/2022 1191 RxNorm Vandana catherine, RAFITA - [facility] & [place] 09:22:42 04025 Bactrim medicatio n arthralgi a (joint pain) muscle cramps severe severe Not available 10/02/2022 75211 9 RxNorm Vandana catherine, RAFITA - [facility] & [place] 09:22:49 68579 insect venom environme nt confusion cough dizziness fever flushing headache wheezing moderate moderate moderate mild moderate moderate moderate Not available 10/02/2022 64686 UNK Vandana catherine, RAFITA - [facility] & [place] 09:23:13 70031 Pneumococ georges vaccine Not available anaphylax is chest pain facial swelling nausea rash wheezing moderate moderate moderate moderate moderate moderate Not available 10/02/2022 33927 7 RxNorm Vandana Steven null, [place] - [facility] & [place] 09:23:25 43140 rosuvasta tin medicatio n eye swelling facial swelling respirato ry distress moderate moderate moderate Not available 10/02/2022 49874 2 RxNorm RAFITA Reed - [facility] [place] 2 09:23:35 Medications Name [...] % 60 /min 97.7 [degF] 49.6 kg/m2 493260. 86 g 119 mm[Hg] 79 mm[Hg] Bianca Smith [facility] & [place] 5 13:31:54 Social History Question Answer Notes LastModified by ProTip Details LastModified Time Tobacco Smoking Status Never Smoker Vandana Beckergodfrey catherine, [facility] & [place] 10/03/2022 14:32:09 Do You Have An Advance Directive? No Information not available 10/03/2022 Are You Blind Or Do You Have Difficulty Seeing? No Information not available 10/03/2022 What Was The Date Of Your Most Recent Tobacco Screening? 09/17/2022 Information not available 10/03/2022 Do You Have Any Pets? Yes [email or web address] Information not available 09/25/2023 Are You Passively Exposed To Smoke? No Information not available 10/03/2022 Are You Currently In School? No MASTERS Information not available 09/25/2023 Sex: Female Functional Status Question Answer Note LastModified by [employer]Gr[employer] A Details LastModified Time Do you use any illicit or recreational drugs? No Information not available 10/03/2022 What is your level of alcohol consumption? 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 Occasional Information not available 10/03/2022 Mental Status Question Answer Note LastModified by Organization D etails LastModified Time Do you feel stressed (tense, restless, nervous, or anxious, or unable to sleep at night)? [id number] Information not available 10/03/2022 Family History Relationship [...] SNOMED-CT Code Diagnosis ICD10 Code Diagnosis Note [id number] [facility] [address] [facility] [address] [place] [address] 02/23/2025 13:48:33 02/23/2025 14:17:11 Recurrent urinary tract infection 852798171 N39.0 Will check lab work. Will send urine off for a culture. Will see patient back in 1 week. 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 Patient will follow up in 2 weeks. Call the office if anything persists or worsens. 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 Urine culture results received. Patient denies any fever. She is scheduled to have surgery to remove her stone on . Marilou David, SIGNAL REPAIRER [address], [place], [address], [facility] [place] 03/02/2025 13:35:40 OBGyn Episode No OBEpisode recorded.
[2025-03-20] MEDS: ERTAPENEM SODIUM 1 GM in 0.9 % SODIUM CHLORIDE 50 ML IV (12:54)
== END 2025-03-20 13:32 | disposition home or self-care (01) ==
LOC: INF 12:33
PROVIDERS: PCP Internal Medicine; Visit Provider Internal Medicine Adolescent Medicine
DX: N39.0 Urinary tract infection, site not specified (principal)
CPT/HCPCS: 96365; J1335

== ENCOUNTER 2025-03-21 12:24 | Outpatient (CLI) | payer OTHER, SELFPAY ==
[2025-03-21] MEDS: ERTAPENEM SODIUM 1 GM in 0.9 % SODIUM CHLORIDE 50 ML IV (13:12)
== END 2025-03-21 13:30 | disposition home or self-care (01) ==
LOC: INF 12:25
PROVIDERS: PCP Internal Medicine; Visit Provider Internal Medicine Adolescent Medicine
DX: N39.0 Urinary tract infection, site not specified (principal)
CPT/HCPCS: 96365; J1335

== ENCOUNTER 2025-03-22 12:30 | Outpatient (CLI) | payer OTHER, SELFPAY ==
[2025-03-22 12:30] VITALS: BP 114/61; PULSE 66; RESP 18; TEMP 36.6; O2SAT 97
--- OUTSIDE RECORDS SUMMARY | 2025-03-22 12:32 | XMS_ITS | Data Portability ---
Author Organization [facility] Mahamed morgan, [facility] Address [address] [facility] [address] [place] [address] Assessment No assessment recorded. Plan of Treatment Reminders Order Date Submit Date Provider Last Modified By Organization Details Last Modified Time Details Appointments None recorded. Lab None recorded. Referral aquatic therapy referral 2017 018 [email or web address] 2 Not available 8 11:14:18 cognitive behavioral therapy referral 2017 018 [email or web address] [facility] [address] [facility] [place] [facility], [place], [address], 8 11:14:19 occupationa l therapist referral 2017 018 [email or web address] 2 Not available 8 11:14:17 Procedures None recorded. Surgeries None recorded. Imaging None recorded. Medication Orders None recorded. Patient TargetsNo targets recorded. Patient Instructions Encounter Date Encounter Id Patient Instructions Last Modified By Organization Details Last Modified Time 08/13/2018 [id number] learning about healthy weight Not available 08/13/2018 [...] Name and Address Organization Details Recorded Time 709110 aspirin medicatio n Not available Not available Not available 08/13/2018 1191 RxNorm Melinda Hudson [facility] 8 10:01:54 Medications Name [...] Address Organization Details Last Updated DateTime 8 401982. 12 g 48.2 kg/m2 160.02 cm 18 /min 61 /min 132/96 mm[Hg] Melinda Hudson [facility] 8 10:06:40 Social History Question Answer Notes LastModified by Organizat ion Details LastModified Time Tobacco Smoking Status Never Smoker Melinda Hudson [facility] 08/13/2018 10:02:03 What Was The Date Of Your Most Recent Tobacco Screening? 08/13/2018 Information n ot available 12/15/2019 Sex: Unknown Functional Status None recorded. Mental Status None recorded. Family History Relationship Description Onset Age of this Age Resolved Age Notes LastModified by Organization Details LastModified Time Father No current problems or disability [email or web address] Not available 08/13 10:02:01 Mother No current problems or disability [email or web address] Not available 08/13 10:02:01 Medical History Condition [...] SNOMED-CT Code Diagnosis ICD10 Code Diagnosis Note [id number] CLIFF BARBER MD RHEUMATOL OGY [address] [place] [address] 08/13/2018 09:13:44 08/13/2018 10:48:47 Pain of multiple joints 07787163 M25.50 she has clinical features of Dixon OA. no features of an inflammato ry arthritis noted. no features of rheumatoid noted. 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 would suggest to avoid steroids and start OT as stated below. she can RTC with me as prn. 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 Health Concerns Section Related Observation LastModified by Organization Detai ls LastModified Time None Recorded Concern Status LastModified by Organization Details LastModified Time None Recorded Advance Directives Directive None Recorded Payers Insurance Date Sequence Insurance Name Policy Number Policy Valdivia Covered Member ID Valdivia Member ID Guarantor Name 02/03/2024 [facility] Lissy [facility] [id number] Lissy [facility] 01/24/2024 1 [place] [employer] FFS/TRADITIO NAL Lissy [place] [id number] Lissy [place] 02/04/2024 1 [facility] Lissy [facility] [id number] Lissy [facility] 01/31/2024 1 [facility] [id number] Lissy [place] [id number] Lissy [place] Notes Date Note Type Note Provider Name [...] a normal TSH. CLIFF BARBER MD [address] [place], [address], [facility] 08/13/2018 17:00:47 OBGyn Episode No OBEpisode recorded.
--- OUTSIDE RECORDS SUMMARY | 2025-03-22 12:32 | XMS_ITS | Continuity of Care Document ---
Author Organization [facility] Infectious Disease -105 Address [address] [place] [address] Care Team Providers Care Light Technician Name Role Phone ZAHRAA BENAVIDES Primary Care Provider [phone] Assessment No assessment recorded. Plan of Treatment [...] and Address Organization Details Recorded Time Syncope 555822566 Active 2021 Malina Hernandez DO [address], [place], [address] , [facility] & [place] 2 15:33:04 Hypersomnia 67844085 Active 2021 Malina Hernandez DO [address], [place], [address] [facility] & [place] 2 15:34:08 Problem Notes None recorded. Procedures Surgical History Date Name Laterality Status Provider Name and Address Organization Details Recorded Time 09/25/20 23 Cystoscopy-Female completed Silvio Valdez MD [address] , [place], [address], [facility] & [place] 09/25/2023 15:26:11 04/04/20 22 Date of Last Pap Smear completed Vandana Harris [facility] & [place] 10/03/2022 14:31:43 10/28/19 22 Rheumatologist Surgery completed Vandana ELLER - [facility] - [place] & [place] 10/03/2022 14:45:45 10/28/19 17 Cholecystectomy completed Vandana ELLER - [facility] & [place] 10/03/2022 14:32:27 10/28/19 14 Other completed Vandana ELLER - [facility] & [place] 10/03/2022 14:44:51 cardiac catheterization completed Vandana ELLER - [facility] & [place] 10/03/2022 14:46:31 strabismus surgery completed Vandana ELLER - [facility] & [place] 10/03/2022 14:55:15 Imaging Results None recorded. Procedure Notes None recorded. Medical Equipment None Reported. Allergies Allergen ID Allergen Name Allergen Category Reaction Reaction Severity Criticality Documentation Date Start Date Code Code System Note Provider Name and Address Organization Details Recorded Time 75230 aspirin medicatio n chest pain wheezing moderate severe Not available 10/02/2022 1191 RxNorm Vandana catherine, RAFITA - [facility] & [place] 09:22:42 57470 Bactrim medicatio n arthralgi a (joint pain) muscle cramps severe severe Not available 10/02/2022 44465 9 RxNorm Vandana catherine, RAFITA - [facility] & [place] 09:22:49 14444 insect venom environme nt confusion cough dizziness fever flushing headache wheezing moderate moderate moderate mild moderate moderate moderate Not available 10/02/2022 48089 UNK Vandana catherine, RAFITA - [facility] & [place] 09:23:13 69357 Pneumococ georges vaccine Not available anaphylax is chest pain facial swelling nausea rash wheezing moderate moderate moderate moderate moderate moderate Not available 10/02/2022 17894 7 RxNorm Vandana Steven null, [place] - [facility] & [place] 09:23:25 85495 rosuvasta tin medicatio n eye swelling facial swelling respirato ry distress moderate moderate moderate Not available 10/02/2022 57146 2 RxNorm RAFITA Reed - [facility] - [place] & [place] 2 09:23:35 Medications Name Sig Start Date [...] completed Not Available Not Available Not Available glipizide 2.5 mg tablet TAKE ONE TABLET BY MOUTH TWICE DAILY active Not Available Not Available No t Available Vitals Date Recorded Body height Heart rate Oxygen saturation Oxygen saturation in Arterial blood by Pulse oximetry Heart rate Body temperature Body mass index (BMI) Body weight Systolic And Diastolic Provider Name and Address Organization Details Last Updated DateTime 5 160.02 cm 60 /min 97 % 97 % 60 /min 97.7 [degF] 49.6 kg/m2 341610. 86 g 119/79 mm[Hg] Bianca Smith [facility] & [place] 13:31:54 Social History Question Answer Notes LastModified by [employer] Details LastModified Time Tobacco Smoking Status [facility] [place] 10/03/2022 14:32:09 Do You Have An Advance Directive? No Information not available 10/03/2022 Are You Blind Or Do You Have Difficulty Seeing? No Information not available 10/03/2022 What Was The Date Of Your Most Recent Tobacco Screening? 09/17/2022 Information not available 10/03/2022 Do You Have Any Pets? Yes [email or web address] Information not available 09/25/2023 Are You Passively Exposed To Smoke? No Information not available 10/03/2022 Are You Currently In School? No MASTERS [email or web address] Information not available 09/25/2023 Sex: Female Functional [...] anxious, or unable to sleep at night)? [id number] Information not available 10/03/2022 Family History Relationship [...] SNOMED-CT Code Diagnosis ICD10 Code Diagnosis Note [id number] [facility] [facility] [address] [place] [address] 02/23/2025 13:48:33 02/23/2025 14:17:11 Recurrent urinary tract infection 597774416 N39.0 Will check lab work. Will send urine off for a culture. Will see patient back in 1 week. [id number] [facility] 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 Patient will follow up in 2 weeks. Call the office if anything persists or worsens. 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 Urine culture results received. Patient denies any fever. She is scheduled to have surgery to remove her stone on . Marilou David, DIRECTOR OF LITIGATION [address], [place], [address], [facility] - [facility] - [place] & [place] 03/02/2025 13:35:40 OBGyn Episode No OBEpisode recorded.
--- OUTSIDE RECORDS SUMMARY | 2025-03-22 12:32 | XMS_ITS | Continuity of Care Document ---
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 Plan of Treatment Reminders Order Date Submit Date Provider Last Modified By Organization Details Last Modified Time Details Appointments None recorded. Lab urinalysis, dipstick [address] Infectious Disease -105, [address] [facility] [address], [place], [address], 14:18:52 CBC w/ diff 2024 025 [facility] (Registration ), [address] [facility], [place], [address], 16:11:55 CMP, serum or plasma 2024 025 [facility] (Registration ), [address] [facility], [place], [address], 5 15:39:03 ESR (erythrocyt e sedimentati on rate), blood [address] (Registration ), [address] [facility], [place], [address], 5 08:54:47 C-reactive protein, quantitativ e, serum or plasma 2024 025 [email or web address] [facility] (Registration ), [address], [place], [address], 08:54:48 culture, urine 2024 025 [facility], [address], [address], [place], [address], 19:09:52 Referral None recorded. Procedures None recorded. Surgeries None recorded. Imaging None recorded. Medication Orders None recorded. Patient TargetsNo targets recorded. Patient InstructionsNo instructions recorded. Reason for Referral None Reported. Results Created Date Observation Date Name Description Value Unit Range Abnormal Flag Note LastModifiedBy Organization Detail LastModifiedTime 02/24/2002/23/2025 urina lysis , dipst ick Leukocytes (reference range) trace Not Available [facility] Infectious Disease -[facility] [address] [facility] [address], [place], [address], 02/23/2025 14:16:48 02/24/20 25 02/23/2025 urina lysis , dipst ick Nitrite (reference range:) negati ve Not Available [facility] Infectious Disease -[facility] [address], [place], [address], 02/23/2025 14:16:48 02/24/20 25 02/23/2025 urina lysis , dipst ick Urobilinogen (reference range) 0.2 Not Available [facility] Infectious Disease -[facility] [address], [place], [address], 02/23/2025 14:16:48 02/24/20 25 02/23/2025 urina lysis , dipst ick Protein (reference range) negati ve Not Available [facility] Infectious Disease -[facility] [address] [facility] [address], [place], [address], 02/23/2025 14:16:48 02/24/20 25 02/23/2025 urina lysis , dipst ick pH (reference range 5-8.5) 6.0 Not Available [place] [address] [address] [facility] [address], [place], [address], 02/23/2025 14:16:48 02/24/20 25 02/23/2025 urina lysis , dipst ick Blood (reference range:) small Not Available [place] [address] [address] [facility] [address], [place], [address], 02/23/2025 14:16:48 02/24/20 25 02/23/2025 urina lysis , dipst ick Specific [place] (reference range) 1.015 Not Available [place] [address] [address] [facility] [address], [place], [address], 02/23/2025 14:16:48 02/24/20 25 02/23/2025 urina lysis , dipst ick Ketone (reference range) negati ve Not Available [place] [address] [address] [facility] [address], [place], [address], 02/23/2025 14:16:48 02/24/20 25 02/23/2025 urina lysis , dipst ick Bilirubin (reference range) negati ve Not Available [place] [address] [address] [facility] [address], [place], [address], 02/23/2025 14:16:48 02/24/20 25 02/23/2025 urina lysis , dipst ick Glucose (reference range) 500 Not Available [place] [address] [address] [facility] [address], [place], [address], 02/23/2025 14:16:48 02/24/20 25 02/23/2025 urina lysis , dipst ick Color (reference range: yellow-brown ) Dark Yellow Not Available [facility] Infectious Disease -[address], [place], [address], 02/23/2025 14:16:48 Result Notes None recorded. Problems Name Problem SNOMED Code Status Onset Date Resolution Date Notes Provider Name and Address Organization Details Recorded Time Syncope 457770403 Active 2021 Malina Hernandez DO [address] [facility], [place], [address] , [place] - [facility] - [place] & [place] 15:33:04 Hypersomnia 92123017 Active 2021 Malina Hernandez DO [address] [facility], [place], [address] , [place] - [facility] - [place] & [place] 15:34:08 Problem Notes None recorded. Procedures Surgical History Date Name Laterality Status Provider Name and Address Organization Details Recorded Time 09/25/20 23 Cystoscopy-Female completed Silvio Valdez MD [address] [facility], [place], [address], [place] - [facility] - [place] & [place] 09/25/2023 15:26:11 04/04/20 22 Date of Last Pap Smear completed Vandana Dalla [place] - [facility] - [place] & [place] 10/03/2022 14:31:43 10/28/19 22 Lithographic Stripper Surgery completed Vandana Dalla [place] - [facility] [place] & [place] 10/03/2022 14:45:45 10/28/19 17 Cholecystectomy completed Vandana Dalla [place] [facility] [place] & [place] 10/03/2022 14:32:27 10/28/19 14 Other completed Vandana Dalla [place] [facility] [place] 10/03/2022 14:44:51 cardiac catheterization completed Vandana Dalla [place] [facility] [place] & [place] 10/03/2022 14:46:31 strabismus surgery completed Vandana Dalla [place] - [facility] - [place] & [place] 10/03/2022 14:55:15 Imaging Results None recorded. Procedure Notes None recorded. Medical Equipment None Reported. Allergies Allergen ID Allergen Name Allergen Category Reaction Reaction Severity Criticality Documentation Date Start Date Code Code System Note Provider Name and Address Organization Details Recorded Time 09616 aspirin medicatio n chest pain wheezing moderate severe Not available 10/02/2022 1191 RxNorm Vandana catherine, [facility] & [place] 2 09:22:42 47660 Bactrim medicatio n arthralgi a (joint pain) muscle cramps severe severe Not available 10/02/2022 41751 9 RxNorm Vandana catherine, RAFITA DARLING [facility] & [place] 2 09:22:49 65894 insect venom environme nt confusion cough dizziness fever flushing headache wheezing moderate moderate moderate mild moderate moderate moderate Not available 10/02/2022 02296 UNK Vandana catherine, RAFITA [facility] & [place] 2 09:23:13 63124 Pneumococ georges vaccine Not available anaphylax is chest pain facial swelling nausea rash wheezing moderate moderate moderate moderate moderate moderate Not available 10/02/2022 38093 7 RxNorm Vandana catherine, RAFITA DARLING [facility] & [place] 2 09:23:25 06809 rosuvasta tin medicatio n eye swelling facial swelling respirato ry distress moderate moderate moderate Not available 10/02/2022 48708 2 RxNorm Vandana catherine, RAFITA DARLING [facility] & [place] 2 09:23:35 Medications Name Sig Start [...] Available No t Available Vitals Date Recorded Heart rate Body height Oxygen saturation Oxygen saturation in Arterial blood by Pulse oximetry Heart rate Body temperature Body mass index (BMI) Body weight Systolic And Diastolic Provider Name and Address Organization Details Last Updated DateTime 5 80 /min 160.02 cm 96 % 96 % 80 /min 98.6 [degF] 49.6 kg/m2 459243. 86 g 116/100 mm[Hg] Bianca ELLER - [facility] - [place] & [place] 5 13:59:18 Social History Question Answer Notes LastModified by Organizat ion Details LastModified Time Tobacco Smoking Status Never Smoker Vandana Harris [facility], [place] - [facility] & [place] 10/03/2022 14:32:09 Do You Have An Advance Directive? No Information not available 10/03/2022 Are You Blind Or Do You Have Difficulty Seeing? No Information not available 10/03/2022 What Was The Date Of Your Most Recent Tobacco Screening? 09/17/2022 Information not available 10/03/2022 Do You Have Any Pets? Yes [email or web address] Information not available 09/25/2023 Are You Passively Exposed To Smoke? No Information not available 10/03/2022 Are You Currently In School? No [employer] [email or web address] Information not available 09/25/2023 Sex: Female Functional Status Question Answer Note LastModified by [employer] Details LastModified Time Do you use any illicit or recreational drugs? No Information not available 10/03/2022 What is your level of alcohol consumption? 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 Occasional Information not available 10/03/2022 Mental Status Question Answer Note LastModified by Organization D etails LastModified Time Do you feel stressed (tense, restless, nervous, or anxious, or unable to sleep at night)? 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 Will send [...] Member ID Guarantor Name 02/23/2025 1 [facility] (MEDICAID HMO) [facility] [id number] [facility] Notes Date Note Type Note Provider Name [...] 2025. Marilou David, PREETI [address], [place], [address], [facility] - [place] & [place] 02/24/2025 10:59:38 OBGyn Episode No OBEpisode recorded.
--- OUTSIDE RECORDS SUMMARY | 2025-03-22 12:33 | XMS_ITS | Data Portability ---
Author Organization [facility] [place] [facility] [place] Alejandro ADMIN Address [address] [place] [address] Care Team Providers Care Onboarding Specialist Name Role Phone ZAHRAA BENAVIDES Primary Care Provider [phone] Assessment Encounter Date Assessment Date Assessment LastModified by Organization Details LastModified Time 08/07/2023 08/07/[address] scan images onto our system. Will review to determine the degree of stone burden bilaterally in the kidneys. Will also plan cystoscopy and pelvic exam in the office in the near future. [email or web address] Not available 08/07/2023 15:34:46 09/25/2023 09/25/2023 I [...] in 6 months with KUB and UA. [email or web address] Not available 09/25/2023 15:29:09 Plan of Treatment Reminders Order Date Submit Date Provider Last Modified By Organization Details Last Modified Time Details Appointments None recorded. Lab urinalysis, dipstick 2024 025 [facility] -105, [address], [place], [address], 5 14:18:52 CBC w/ diff 2024 025 [facility] (Registration ), [address], [place], [address], 5 16:11:55 CMP, serum or plasma 2024 025 [facility] (Registration ), [address], [place], [address], 5 15:39:03 ESR (erythrocyt e sedimentati on rate), blood [address] (Registration ), [address] [facility], [place], [address], 5 08:54:47 C-reactive protein, quantitativ e, serum or plasma [address] (Registration ), [address], [place], [address], 5 08:54:48 culture, urine 2024 025 [place], [address], [address], [place], [address], 5 19:09:52 urinalysis, dipstick 2022 023 [email or web address] [facility], [address], [address], [place], [address], 3 16:08:29 Referral None recorded. Procedures None [...] usal 7.7 - 58.5 Perfo rmed at: [facility] [address] [place] [address] 1269 Lab Direc tor: Los carson PhD, Phone : [phone] Not Available [facility] [address] [facility], [place], [address], 04/03/2023 10:13:10 04/02/20 23 04/03/2023 FSH FSH, serum 5.4 mIU/m L Adult Femal e: Folli cular phase 3.5 - 12.5 Ovula tion phase 4.7 - 21.5 Lutea l phase 1.7 - 7.7 Postm enopa usal 25.8 - 134.8 Perfo rmed at: [facility] [address] [place] [address] 1260 Lab Direc tor: Los carson PhD, Phone : [phone] Not Available [facility] ([facility]) [address] [facility], [place], [address], 04/03/2023 10:14:16 08/07/20 23 08/07/2023 urina lysis , dipst ick Leukocytes (reference range) trace Not Available [facility] [address] [place] [address], [address], 08/07/2023 15:15:15 08/07/2008/07/2023 urina lysis , dipst ick Nitrite (reference range:) negati ve Not Available [facility] [address], [place], [address], 08/07/2023 15:15:15 08/07/20 23 08/07/2023 urina lysis , dipst ick Urobilinogen (reference range) 0.2 Not Available [facility] [address] [place] [address] [address], [place], [address], 08/07/2023 15:15:15 08/07/2008/07/2023 urina lysis , dipst ick Protein (reference range) negati ve Not Available [facility] [address], [place], [address], 08/07/2023 15:15:15 08/07/2008/07/2023 urina lysis , dipst ick pH (reference range 5-8.5) 6.0 Not Available [facility] [address], [place], [address], 08/07/2023 15:15:15 08/07/2008/07/2023 urina lysis , dipst ick Blood (reference range:) small Not Available [facility] [address] [place] [address] [address], [place], [address], 08/07/2023 15:15:15 08/07/2008/07/2023 urina lysis , dipst ick Specific [place] (reference range) 1.015 Not Available [facility] [address], [place], [address], 08/07/2023 15:15:15 08/07/2008/07/2023 urina lysis , dipst ick Ketone (reference range) negati ve Not Available [address], [place], [address], 08/07/2023 15:15:15 08/07/2008/07/2023 urina lysis , dipst ick Bilirubin (reference range) negati ve Not Available [address], [place], [address], 08/07/2023 15:15:15 08/07/20 23 08/07/2023 urina lysis , dipst ick Glucose (reference range) 250 Not Available [facility] [address], [place], [address], 08/07/2023 15:15:15 08/07/20 23 08/07/2023 urina lysis , dipst ick Color (reference range: yellow-brown ) Yellow Not Available [facility] [address], [place], [address], 08/07/2023 15:15:15 02/24/20 25 02/23/2025 CBC AUTO W DIFF WBC 11.3 K/uL 4.0-10 .5 high Not Available [facility] ([facility]) [address] [facility], [place], [address], 02/23/2025 15:02:28 02/24/20 25 02/23/2025 CBC AUTO W DIFF RBC 5.7 M/mm3 4.2-6. 4 Not Available [facility] ([facility]) [address], [place], [address], 02/23/2025 15:02:28 02/24/20 25 02/23/2025 CBC AUTO W DIFF HGB 15.8 gm/dL 12.5-1 6.0 Not Available [facility] ([facility]) [address] [facility], [place], [address], 02/23/2025 15:02:28 02/24/20 25 02/23/2025 CBC AUTO W DIFF HCT 48.8 % 37.0-4 7.0 high Not Available [facility] ([facility]) [address], [place], [address], 02/23/2025 15:02:28 02/24/20 25 02/23/2025 CBC AUTO W DIFF MCV 86.4 fL 78-100 Not Available [facility] ([facility]) [address], [place], [address], 02/23/2025 15:02:28 02/24/20 25 02/23/2025 CBC AUTO W DIFF MCH 28.0 pg 27-31 Not Available [facility] ([facility]) [address], [place], [address], 02/23/2025 15:02:28 02/24/20 25 02/23/2025 CBC AUTO W DIFF MCHC 32.4 g/dL 32-36 Not Available [facility] ([facility]) [address], [place], [address], 02/23/2025 15:02:28 02/24/20 25 02/23/2025 CBC AUTO W DIFF RDW 13.7 % 11.5-1 4.0 Not Available [facility] ([facility]) [address], [place], [address], 02/23/2025 15:02:28 02/24/20 25 02/23/2025 CBC AUTO W DIFF platelet count 380 K/uL 150-45 0 Not Available [facility] ([facility]) [address], [place], [address], 02/23/2025 15:02:28 02/24/20 25 02/23/2025 CBC AUTO W DIFF MPV 10.3 fL 6-9.5 high Not Available [facility] ([facility]) [address], [place], [address], 02/23/2025 15:02:28 02/24/20 25 02/23/2025 CBC AUTO W DIFF neutrophil% 66.5 % 43-65 high Not Available [facility] ([facility]) [address], [place], [address], 02/23/2025 15:02:28 02/24/20 25 02/23/2025 CBC AUTO W DIFF lymphocyte% 24.3 % 20.5-4 5.5 Not Available [facility] ([facility]) [address], [place], [address], 02/23/2025 15:02:28 02/24/20 25 02/23/2025 CBC AUTO W DIFF monocyte% 6.0 % 5.5-11 .7 Not Available [facility] ([facility]) [address], [place], [address], 02/23/2025 15:02:02/24/20 25 02/23/2025 CBC AUTO W DIFF eosinophil% 2.3 % 0.9-2. 9 Not Available [facility] ([facility]) [address] [facility], [place], [address], 02/23/2025 15:02:28 02/24/20 25 02/23/2025 CBC AUTO W DIFF basophil% 0.6 % 0.2-1. 0 Not Available [facility] ([facility]) [address] [place], [address], 02/23/2025 15:02:28 02/24/20 25 02/23/2025 CBC AUTO W DIFF immature granulocytes % 0.3 % 0.0-0. 8 Not Available [facility] ([facility]) [address] [place], [address], 02/23/2025 15:02:28 02/24/20 25 02/23/2025 CBC AUTO W DIFF nucleated red blood cells % 0.0 % Not Available [facility] ([facility]) [address] [place], [address], 02/23/2025 15:02:28 02/24/20 25 02/23/2025 CBC AUTO W DIFF neutrophil# 7.5 K/uL 2.2-4. 8 high Not Available [facility] ([facility]) [address] [facility], [place], [address], 02/23/2025 15:02:28 02/24/20 25 02/23/2025 CBC AUTO W DIFF lymphocyte# 2.7 cell/ mcL 1.3-2. 9 Not Available [facility] ([facility]) [address], [place], [address], 02/23/2025 15:02:28 02/24/20 25 02/23/2025 CBC AUTO W DIFF monocyte# 0.7 cell/ mcL 0.3-0. 8 Not Available [facility] ([facility]) [address] [facility], [place], [address], 02/23/2025 15:02:28 02/24/20 25 02/23/2025 CBC AUTO W DIFF eosinophil# 0.3 cell/ mcL 0-0.2 high Not Available [facility] ([facility]) [address] [facility], [place], [address], 02/23/2025 15:02:28 02/24/20 25 02/23/2025 CBC AUTO W DIFF basophil# 0.1 cell/ mcL 0.0-1. 0 Not Available [facility] ([facility]) [address] [facility], [place], [address], 02/23/2025 15:02:28 02/24/20 25 02/23/2025 CBC AUTO W DIFF immature gramulocytes # 0.03 K/uL Not Available [facility] ([facility]) [address] [facility], [place], [address], 02/23/2025 15:02:28 02/24/20 25 02/23/2025 CBC AUTO W DIFF nucleated red blood cells # 0.00 K/uL Not Available [facility] ([facility]) [address] [facility], [place], [address], 02/23/2025 15:02:28 04/29/02/23/2025 CBC AUTO W DIFF manual differential NO Not Available [facility] ([facility]) [address], [place], [address], 02/23/2025 15:02:28 02/24/20 25 02/23/2025 COMP METAB OLIC PANEL sodium 138 mmol/ L 136-14 5 Not Available [facility] ([facility]) [address], [place], [address], 02/23/2025 15:39:03 02/24/20 25 02/23/2025 COMP METAB OLIC PANEL potassium 3.7 mmol/ L 3.6-5. 0 Not Available [facility] ([facility]) [address] , [place], [address], 02/23/2025 15:39:03 02/24/20 25 02/23/2025 COMP METAB OLIC PANEL chloride 98 mmol/ L 98-107 Not Available [facility] ([facility]) [address] , [place], [address], 02/23/2025 15:39:03 02/24/20 25 02/23/2025 COMP METAB OLIC PANEL carbon dioxide 26.8 mmol/ L 21.0-3 2.0 Not Available [facility] ([facility]) [address] , [place], [address], 02/23/2025 15:39:03 02/24/20 25 02/23/2025 COMP METAB OLIC PANEL anion gap 16.9 Not Available [facility] ([facility]) [address] [place], [address], 02/23/2025 15:39:03 02/24/20 25 02/23/2025 COMP METAB OLIC PANEL glucose 200 mg/dL 70-120 high Not Available [facility] ([facility]) [address], [place], [address], 02/23/2025 15:39:03 02/24/20 25 02/23/2025 COMP METAB OLIC PANEL BUN 12 mg/dL 7-18 Not Available [facility] ([facility]) [address], [place], [address], 02/23/2025 15:39:03 02/24/20 25 02/23/2025 COMP METAB OLIC PANEL creatinine 1.1 mg/dL 0.6-1. 3 Not Available [facility] ([facility]) [address], [place], [address], 02/23/2025 15:39:03 02/24/20 25 02/23/2025 COMP METAB [...] brown ing kiney funct ion. Not Available [facility] ([facility]) [address] , [place], [address], 02/23/2025 15:39:03 02/24/20 25 02/23/2025 COMP METAB OLIC PANEL osmolality (calculated) 293 mOsm/ kg 275-30 1 OSMOL ALITY IS A CALCU LATIO N UTILI ZING THE SERUM /PLAS MA SODIU M, GLUCO SE AND UREA NITRO GEN (BUN) LEVEL S. FOR THE MOST ACCUR ATE RESUL T A MEASU RED SERUM OSMOL ALITY IS SUGGE STED. Not Available [facility] ([facility]) [address], [place], [address], 02/23/2025 15:39:03 02/24/20 25 02/23/2025 COMP METAB OLIC PANEL total protein 8.1 g/dL 6.4-8. 2 Not Available [facility] ([facility]) [address] , [place], [address], 02/23/2025 15:39:03 02/24/20 25 02/23/2025 COMP METAB OLIC PANEL albumin 3.6 g/dL 3.4-5. 0 Not Available [facility] ([facility]) [address] , [place], [address], 02/23/2025 15:39:03 02/24/20 25 02/23/2025 COMP METAB OLIC PANEL globulin 4.5 Not Available [facility] ([facility]) [address], [place], [address], 02/23/2025 15:39:03 02/24/20 25 02/23/2025 COMP METAB OLIC PANEL alb/glob ratio 0.8 0.7-2 Not Available [facility] ([facility]) [address], [place], [address], 02/23/2025 15:39:03 02/24/20 25 02/23/2025 COMP METAB OLIC PANEL calcium 10.2 mg/dL 8.5-10 .5 Not Available [facility] ([facility]) [address], [place], [address], 02/23/2025 15:39:03 02/24/20 25 02/23/2025 COMP METAB OLIC PANEL bilirubin total 0.60 mg/dL 0.10-1 .00 Not Available [facility] ([facility]) [address] [place], [address], 02/23/2025 15:39:03 02/24/20 25 02/23/2025 COMP METAB OLIC PANEL AST (SGOT) 46 U/L 0-37 high Not Available [facility] ([facility]) [address], [place], [address], 02/23/2025 15:39:03 02/24/20 25 02/23/2025 COMP METAB OLIC PANEL ALT (SGPT) 78 U/L 0-65 high Not Available [facility] ([facility]) [address], [place], [address], 02/23/2025 15:39:03 02/24/20 25 02/23/2025 COMP METAB OLIC PANEL alk phosphatase 111 U/L 46-116 Not Available [facility] ([facility]) [address] [facility], [place], [address], 02/23/2025 15:39:03 02/24/20 25 02/23/2025 C-KARLI CTIVE PROTE IN (CRP) C-reactive protein, quant 2.0 mg/dL 0.05-0 .300 high Not Available [facility] ([facility]) [address] [facility], [place], [address], 02/23/2025 15:40:11 02/24/20 25 02/23/2025 SED RATE sed rate auto 9 0-20 Not Available [facility] ([facility]) [address] [facility], [place], [address], 02/23/2025 15:43:35 02/24/20 25 02/27/2025 URINE CULTU RE,CO MPREH ENSIV E urine culture,comp rehensive FINAL REPORT abnormal Not Available [facility] ([facility]) [address] [facility], [place], [address], 02/27/2025 19:09:52 02/24/20 25 02/27/2025 URINE CULTU [...] ng units per mL Not Available [facility] ([facility]) [address] [facility], [place], [address], 02/27/2025 19:09:52 02/24/2002/27/2025 URINE CULTU RE,CO MPREH [...] as Cefta rolin e Not Available [facility] ([facility]) [address] [facility], [place], [address], 02/27/2025 19:09:52 02/24/2002/27/2025 URINE CULTU RE,CO MPREH [...] Vanco mycin R S Not Available [facility] ([facility]) [address] [facility], [place], [address], 02/27/2025 19:09:52 02/24/20 25 02/23/2025 urina lysis , dipst ick Leukocytes (reference range) trace Not Available [place] [address], [place], [address], 02/23/2025 14:16:48 02/24/20 25 02/23/2025 urina lysis , dipst ick Nitrite (reference range:) negati ve Not Available [place] [address] [facility] [address], [place], [address], 02/23/2025 14:16:48 02/24/20 25 02/23/2025 urina lysis , dipst ick Urobilinogen (reference range) 0.2 Not Available [place] [address] [address] [facility] [address], [place], [address], 02/23/2025 14:16:48 02/24/20 25 02/23/2025 urina lysis , dipst ick Protein (reference range) negati ve Not Available [place] [address] [facility] [address], [place], [address], 02/23/2025 14:16:48 02/24/20 25 02/23/2025 urina lysis , dipst ick pH (reference range 5-8.5) 6.0 Not Available [place] [address] [facility] [address], [place], [address], 02/23/2025 14:16:48 02/24/20 25 02/23/2025 urina lysis , dipst ick Blood (reference range:) small Not Available [place] [address] [address] [facility] [address], [place], [address], 02/23/2025 14:16:48 02/24/20 25 02/23/2025 urina lysis , dipst ick Specific [place] (reference range) 1.015 Not Available [place] [address] [address] [facility] [address], [place], [address], 02/23/2025 14:16:48 02/24/20 25 02/23/2025 urina lysis , dipst ick Ketone (reference range) negati ve Not Available [place] [address] [address] [facility] [address], [place], [address], 02/23/2025 14:16:48 02/24/20 25 02/23/2025 urina lysis , dipst ick Bilirubin (reference range) negati ve Not Available [place] [address] [address] [facility] [address], [place], [address], 02/23/2025 14:16:48 02/24/20 25 02/23/2025 urina lysis , dipst ick Glucose (reference range) 500 Not Available [place] [address] [address] [facility] [address], [place], [address], 02/23/2025 14:16:48 02/24/20 25 02/23/2025 urina lysis , dipst ick Color (reference range: yellow-brown ) Dark Yellow Not Available [place] [address] [address] [facility] [address], [place], [address], 02/23/2025 14:16:48 Result Notes None recorded. Problems Name Problem SNOMED Code Status Onset Date Resolution Date Notes Provider Name and Address Organization Details Recorded Time Syncope 899087138 Active 2021 Malina Hernandez DO [address], [place], [address] , [facility] - [facility] [place] & [place] 15:33:04 Hypersomnia 71851043 Active 2021 Malina Hernandez DO [address] [facility], [place], [address] , [place] - [facility] & [place] 15:34:08 Problem Notes None recorded. Procedures Surgical History Date Name Laterality Status Provider Name and Address Organization Details Recorded Time 09/25/20 23 Cystoscopy-Female completed Silvio Valdez MD [address] [facility], [place], [address], [place] - [facility] [place] [facility] [place] 09/25/2023 15:26:11 04/04/20 22 Date of Last Pap Smear completed Vandana Eugenioa [place] - [facility] [place] & [place] 10/03/2022 14:31:43 10/28/19 22 Awnings Mechanic Surgery completed Vandana Dalla [place] - [facility] [place] & [place] 10/03/2022 14:45:45 10/28/19 17 Cholecystectomy completed Vandana Dalla [place] - [facility] & [place] 10/03/2022 14:32:27 10/28/19 14 Other completed Vandana Dalla [place] - [facility] [place] 10/03/2022 14:44:51 cardiac catheterization completed Vandana Dalla [place] - [facility] & [place] 10/03/2022 14:46:31 strabismus surgery completed Vandana Dalla [place] - [facility] [place] & [place] 10/03/2022 14:55:15 Imaging Results None recorded. Procedure Notes None recorded. Medical Equipment None Reported. Allergies Allergen ID Allergen Name Allergen Category Reaction Reaction Severity Criticality Documentation Date Start Date Code Code System Note Provider Name and Address Organization Details Recorded Time 99452 aspirin medicatio n chest pain wheezing moderate severe Not available 10/02/2022 1191 RxNorm Vandana Eugenioa null, [place] - [facility] & [place] 09:22:42 14232 Bactrim medicatio n arthralgi a (joint pain) muscle cramps severe severe Not available 10/02/2022 11749 9 RxNorm Vandana Eugenioa null, [place] - [facility] & [place] 09:22:49 59314 insect venom environme nt confusion cough dizziness fever flushing headache wheezing moderate moderate moderate mild moderate moderate moderate Not available 10/02/2022 45397 UNK Vandana catherine, [facility] & [place] 2 09:23:13 55136 Pneumococ georges vaccine Not available anaphylax is chest pain facial swelling nausea rash wheezing moderate moderate moderate moderate moderate moderate Not available 10/02/2022 62878 7 RxNorm Vandana catherine, [facility] [place] [facility] & [place] 2 09:23:25 33067 rosuvasta tin medicatio n eye swelling facial swelling respirato ry distress moderate moderate moderate Not available 10/02/2022 88760 2 RxNorm Vandana catherine, [facility] & [place] 2 09:23:35 Medications Name Sig Start Date [...] % 80 /min 98.6 [degF] 49.6 kg/m2 784714. 86 g 116/100 mm[Hg] Bianca ELLER - [place] [facility] 5 13:59:18 Date Recorded Body height Heart rate Oxygen saturation Oxygen saturation in Arterial blood by Pulse oximetry Heart rate Body temperature Body mass index (BMI) Body weight Systolic And Diastolic Provider Name and Address Organization Details Last Updated DateTime 5 160.02 cm 60 /min 97 % 97 % 60 /min 97.7 [degF] 49.6 kg/m2 196843. 86 g 119/79 mm[Hg] Bianca ELLER - [facility] 5 13:31:54 Date Recorded Body height Body temperature Oxygen saturation Oxygen saturation in Arterial blood by Pulse oximetry Inhaled oxygen flow rate Heart rate Body mass index (BMI) Body weight Systolic And Diastolic Provider Name and Address Organization Details Last Updated DateTime 3 157.48 cm 97.1 [degF] 98 % 98 % 2 L/min 89 /min 48.3 kg/m2 364159. 39 g 128/98 mm[Hg] Phillip Morrison [facility] & [place] 13:04:48 Date Recorded Body height Body mass index (BMI) Body weight Systolic And Diastolic Provider Name and Address Organization Details Last Updated DateTime 08/07/2023 157.48 cm 49.4 kg/m2 487109.94 g 125/75 mm[Hg] Britney Yee [facility] & [place] 08/07/2023 15:05:24 Date Recorded Body height Body mass index (BMI) Body weight Systolic And Diastolic Provider Name and Address Organization Details Last Updated DateTime 09/25/2023 157.48 cm 51.2 kg/m2 662362.86 g 126/76 mm[Hg] Ioana Ayala [facility] & [place] 09/25/2023 15:07:04 Social History Question Answer Notes LastModified by [facility] Details LastModified Time Tobacco Smoking Status Never Smoker Vandana Beckergodfrey catherine, [facility] & [place] 10/03/2022 14:32:09 Do You Have An Advance Directive? No Information not available 10/03/2022 Are You Blind Or Do You Have Difficulty Seeing? No Information not available 10/03/2022 What Was The Date Of Your Most Recent Tobacco Screening? 09/17/2022 Information not available 10/03/2022 Do You Have Any Pets? Yes [email or web address] Information not available 09/25/2023 Are You Passively Exposed To Smoke? No Information not available 10/03/2022 Are You Currently In School? No [employer] [email or web address] Information not available 09/25/2023 Sex: Female Functional Status Question Answer Note LastModified by [employer] ion Details LastModified Time Do you use [...] anxious, or unable to sleep at night)? [id number] Information not available 10/03/2022 Family History Relationship [...] Problems Y GI Problems Y COPD Y Lung Disease Y Asthma Y Pneumonia [...] SNOMED-CT Code Diagnosis ICD10 Code Diagnosis Note [id number] MalinaDO [facility] [address] [facility],[address] [place] [address] 10/03/2022 14:07:23 10/03/2022 15:38:25 Syncope [id number] R55 She has been experienci ng these stereotypi georges passing out episodes for five years. No definite witnessed convulsion s but some associated brief confusion afterwards .will order EEG to rule out neurologic causes of syncope Hypersomnia [id number] G47 .10 She describes some significan t episodes of pathologic al sleepiness . She will fall asleep without warning in the middle of talking. This is very infrequent but can be suggestive of narcolepsy . Will order PSG with MSLT to evaluate this in more detail. 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 [id number] Silvio Valdez MD [facility] Urology [address] [place] [address],[address] [place] [address] 08/07/2023 14:35:57 08/07/2023 15:40:17 Recurrent urinary tract infection [id number] N39.0 Kidney stone 38439457 N2 0.0 Chronic th oracic back pain [id number] 43621 M54.6 Microscopic hematuria 19 8151150 R31.29 [id number] Silvio Valdez MD [facility] Urology [address] [place] [address] 09/25/2023 14:26:57 09/25/2023 15:25:02 Recurrent urinary tract infection 335821957 N39.0 Kidney stone 40871711 N2 0.0 Microscopic hematuria 19 8899374 R31.29 [id number] [facility] [address] [facility] [address] [place] [address] 02/23/2025 13:48:33 02/23/2025 14:17:11 Recurrent urinary tract infection 441925147 N39.0 Will check lab work. Will send urine off for a culture. Will see patient back in 1 week. 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 Patient will follow up in 2 weeks. Call the office if anything persists or worsens. 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 see above Health Concerns Section Related Observation LastModified by Organization Detai ls LastModified Time None Recorded Concern Status LastModified by Organization Details LastModified Time None Recorded Advance Directives Directive N: Payers Insurance Date Sequence Insurance Name Policy Number Policy Valdivia Covered Member ID Valdivia Member ID Guarantor Name 09/18/2023 1 [facility] (POS II) [facility] [id number] [facility] 02/27/2025 1 [facility] (MEDICAID HMO) [facility] [id number] [facility] Notes Date Note Type Note Provider Name and Address Organization Details Recorded Time 04/02/2023 text/html 47-year-old daljitma n referred for a right pelvic fluid collection. Patient had hysterectomy, right salpingo-oophorectomy in 2021. She has undergone imaging on several occasions since then for some occasional, dull, aching right flank pain. She has a 7.4 cm right adnexal fluid collection that has enlarged somewhat over time. Patient states she is seen her outside sales for this, was told it is possibly a lymphocele. Micheline Lackey MD [address] [place] [address], [place], [address], [facility] [place] 04/18/2023 12:50:43 08/07/2023 text/html Location: Histor y [...] is status post hysterectomy. MD [address], [place], [address], [facility] [place] 08/07/2023 15:35:17 09/25/2023 text/html Patient returns to [...] is status post hysterectomy. MD [address], [place], [address], [place] [facility] [place] 09/25/2023 15:30:10 02/23/2025 text/html patient presents to [...] 2025. Marilou David APRN [address], [place], [address], [place] [facility] & [place] 02/24/2025 10:59:38 03/02/2025 text/html patient presents to clinic for follow up. Urine culture results received. Patient denies any fever. She is scheduled to have surgery to remove her stone on . Marilou David APRN [address], [place], [address], [place] [facility] & [place] 03/02/2025 13:35:40 OBGyn Episode No OBEpisode recorded.
[2025-03-22 12:45] VITALS: BP 136/94; PULSE 79; RESP 19; O2SAT 99
[2025-03-22 13:05] VITALS: BP 105/57; PULSE 60; RESP 18; O2SAT 97
[2025-03-22] MEDS: ERTAPENEM SODIUM 1 GM in 0.9 % SODIUM CHLORIDE 50 ML IV (13:14)
== END 2025-03-22 13:15 | disposition home or self-care (01) ==
LOC: INF 12:30
PROVIDERS: PCP Internal Medicine; Visit Provider Internal Medicine Adolescent Medicine
DX: N12 Tubulo-interstitial nephritis, not specified as acute or chronic (principal)
CPT/HCPCS: 96365; G0463; J1335

== ENCOUNTER 2025-03-23 14:04 | Outpatient (CLI) | payer OTHER, SELFPAY ==
--- OUTSIDE RECORDS SUMMARY | 2025-03-23 14:07 | XMS_ITS | Continuity of Care Document ---
Author Organization [facility] Infectious Disease -105 Address [address] [facility] [address] [place] [address] Care Team Providers Care Maintenance Groundman Name Role Phone SHERI BENAVIDESGHT Primary Care Provider Assessment No assessment recorded. Plan of Treatment Reminders Order Date Submit Date Provider Last Modified By Organization Details Last Modified Time Details Appointments None recorded. Lab urinalysis, dipstick [address] Infectious Disease -105, [address] [facility] [address], [place], [address], 14:18:52 CBC w/ diff 2024 025 [facility] (Registration ), [address] [facility], [place], [address], 16:11:55 CMP, serum or plasma 2024 025 [facility] (Registration ), [address] [facility], [place], [address], 5 15:39:03 ESR (erythrocyt e sedimentati on rate), blood [address] (Registration ), [address] [facility], [place], [address], 5 08:54:47 C-reactive protein, quantitativ e, serum or plasma 2024 025 [email or web address] [facility] (Registration ), [address], [place], [address], 08:54:48 culture, urine 2024 025 [facility], [address], [address], [place], [address], 19:09:52 Referral None recorded. Procedures None recorded. Surgeries None recorded. Imaging None recorded. Medication Orders None recorded. Patient TargetsNo targets recorded. Patient InstructionsNo instructions recorded. Reason for Referral None Reported. Results Created Date Observation Date Name Description Value Unit Range Abnormal Flag Note LastModifiedBy Organization Detail LastModifiedTime 02/24/2002/23/2025 urina lysis , dipst ick Leukocytes (reference range) trace Not Available [facility] Infectious Disease [facility] [address] [facility] [address], [place], [address], 02/23/2025 14:16:48 02/24/20 25 02/23/2025 urina lysis , dipst ick Nitrite (reference range:) negati ve Not Available [facility] Infectious Disease -[facility] [address], [place], [address], 02/23/2025 14:16:48 02/24/20 25 02/23/2025 urina lysis , dipst ick Urobilinogen (reference range) 0.2 Not Available [facility] Infectious Disease -[facility] [address], [place], [address], 02/23/2025 14:16:48 02/24/20 25 02/23/2025 urina lysis , dipst ick Protein (reference range) negati ve Not Available [facility] Infectious Disease -[facility] [address] [facility] [address], [place], [address], 02/23/2025 14:16:48 02/24/20 25 02/23/2025 urina lysis , dipst ick pH (reference range 5-8.5) 6.0 Not Available [place] [address] [address] [facility] [address], [place], [address], 02/23/2025 14:16:48 02/24/20 25 02/23/2025 urina lysis , dipst ick Blood (reference range:) small Not Available [place] [address] [address] [facility] [address], [place], [address], 02/23/2025 14:16:48 02/24/20 25 02/23/2025 urina lysis , dipst ick Specific [place] (reference range) 1.015 Not Available [place] [address] [address] [facility] [address], [place], [address], 02/23/2025 14:16:48 02/24/20 25 02/23/2025 urina lysis , dipst ick Ketone (reference range) negati ve Not Available [place] [address] [address] [facility] [address], [place], [address], 02/23/2025 14:16:48 02/24/20 25 02/23/2025 urina lysis , dipst ick Bilirubin (reference range) negati ve Not Available [place] [address] [address] [facility] [address], [place], [address], 02/23/2025 14:16:48 02/24/20 25 02/23/2025 urina lysis , dipst ick Glucose (reference range) 500 Not Available [place] [address] [address] [facility] [address], [place], [address], 02/23/2025 14:16:48 02/24/20 25 02/23/2025 urina lysis , dipst ick Color (reference range: yellow-brown ) Dark Yellow Not Available [facility] Infectious Disease -[address], [place], [address], 02/23/2025 14:16:48 Result Notes None recorded. Problems Name Problem SNOMED Code Status Onset Date Resolution Date Notes Provider Name and Address Organization Details Recorded Time Syncope 178109430 Active 2021 Malina Hernandez DO [address] [facility], [place], [address] , [place] - [facility] - [place] & [place] 15:33:04 Hypersomnia 17627147 Active 2021 Malina Hernandez DO [address] [facility], [place], [address] , [place] - [facility] - [place] & [place] 15:34:08 Problem Notes None recorded. Procedures Surgical History Date Name Laterality Status Provider Name and Address Organization Details Recorded Time 09/25/20 23 Cystoscopy-Female completed Silvio Valdez MD [address] [facility], [place], [address], [place] - [facility] - [place] & [place] 09/25/2023 15:26:11 04/04/20 22 Date of Last Pap Smear completed Vandana Dalla [place] - [facility] - [place] & [place] 10/03/2022 14:31:43 10/28/19 22 Card Setter Surgery completed Vandana Dalla [place] - [facility] - [place] & [place] 10/03/2022 14:45:45 10/28/19 17 Cholecystectomy completed Vandana Dalla [place] - [facility] - [place] & [place] 10/03/2022 14:32:27 10/28/19 14 Other completed Vandana Dalla [place] - [facility] - [place] & [place] 10/03/2022 14:44:51 cardiac catheterization completed Vandana Dalla [place] - [facility] - [place] & [place] 10/03/2022 14:46:31 strabismus surgery completed Vandana Dalla [place] - [facility] - [place] & [place] 10/03/2022 14:55:15 Imaging Results None recorded. Procedure Notes None recorded. Medical Equipment None Reported. Allergies Allergen ID Allergen Name Allergen Category Reaction Reaction Severity Criticality Documentation Date Start Date Code Code System Note Provider Name and Address Organization Details Recorded Time 06633 aspirin medicatio n chest pain wheezing moderate severe Not available 10/02/2022 1191 RxNorm Vandana catherine, [facility] & [place] 2 09:22:42 73375 Bactrim medicatio n arthralgi a (joint pain) muscle cramps severe severe Not available 10/02/2022 11186 9 RxNorm Vandana catherine, RAFITA DARLING [facility] & [place] 2 09:22:49 03183 insect venom environme nt confusion cough dizziness fever flushing headache wheezing moderate moderate moderate mild moderate moderate moderate Not available 10/02/2022 37532 UNK Vandana catherine, RAFIAT Shea [facility] & [place] 2 09:23:13 91460 Pneumococ georges vaccine Not available anaphylax is chest pain facial swelling nausea rash wheezing moderate moderate moderate moderate moderate moderate Not available 10/02/2022 73126 7 RxNorm Vandana catherine, RAFITA DARLING [facility] & [place] 2 09:23:25 50326 rosuvasta tin medicatio n eye swelling facial swelling respirato ry distress moderate moderate moderate Not available 10/02/2022 15753 2 RxNorm Vandana catherine, RAFITA DARLING [facility] & [place] 2 09:23:35 Medications Name Sig [...] % 80 /min 98.6 [degF] 49.6 kg/m2 989690. 86 g 116/100 mm[Hg] Bianca ELLER - [facility] - [place] & [place] 5 13:59:18 Social History Question Answer Notes LastModified by Organizat ion Details LastModified Time Tobacco Smoking Status Never Smoker Vandana Harris [facility], [place] - [facility] & [place] 10/03/2022 14:32:09 Do You Have An Advance Directive? No Information not available 10/03/2022 Are You Blind Or Do You Have Difficulty Seeing? No Information not available 10/03/2022 What Was The Date Of Your Most Recent Tobacco Screening? 09/17/2022 Information not available 10/03/2022 Do You Have Any Pets? Yes [email or web address] Information not available 09/25/2023 Are You Passively Exposed To Smoke? No Information not available 10/03/2022 Are You Currently In School? No MASTERS [email or web address] Information not available 09/25/2023 Sex: Female Functional Status Question Answer Note LastModified by [employer] Details LastModified Time Do you use any illicit or recreational drugs? No Information not available 10/03/2022 What is your level of alcohol consumption? 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 Occasional Information not available 10/03/2022 Mental Status Question Answer Note LastModified by Organization D etails LastModified Time Do you feel stressed (tense, restless, nervous, or anxious, or unable to sleep at night)? [id number] Information not available 10/03/2022 Family History Relationship [...] SNOMED-CT Code Diagnosis ICD10 Code Diagnosis Note [id number] Marilou Herbert in, HATCHERY SUPERVISOR [facility] Infectiou s Disease -[address] [place] [address] 02/23/2025 13:48:33 02/23/2025 14:17:11 Recurrent urinary tract infection 499650262 N39.0 Will check lab work. Will send [...] Member ID Guarantor Name 02/23/2025 1 [facility] (MEDICAID HMO) [facility] [id number] [facility] Notes Date Note Type Note Provider Name [...] 2025. Marilou David, PREETI [address], [place], [address], [facility] - [place] & [place] 02/24/2025 10:59:38 OBGyn Episode No OBEpisode recorded.
--- OUTSIDE RECORDS SUMMARY | 2025-03-23 14:08 | XMS_ITS | Continuity of Care Document ---
Author Organization [facility] Infectious Disease -[address] [place] [address] Care Team Providers Care Executive Marketing Assistant Name Role Phone ZAHRAA BENAVIDES Primary [...] and Address Organization Details Recorded Time Syncope 544150428 Active 2021 Malina Hernandez DO [address], [place], [address] , [facility] & [place] 2 15:33:04 Hypersomnia 88041752 Active 2021 Malina Hernandez DO [address], [place], [address] [facility] & [place] 2 15:34:08 Problem Notes None recorded. Procedures Surgical History Date Name Laterality Status Provider Name and Address Organization Details Recorded Time 09/25/20 23 Cystoscopy-Female completed Silvio Valdez MD [address] , [place], [address], [facility] & [place] 09/25/2023 15:26:11 04/04/20 22 Date of Last Pap Smear completed Vandana Harris [facility] & [place] 10/03/2022 14:31:43 10/28/19 22 Radiology Manager Surgery completed Vandana ELLER - [facility] - [place] & [place] 10/03/2022 14:45:45 10/28/19 17 Cholecystectomy completed Vandana ELLER - [facility] & [place] 10/03/2022 14:32:27 10/28/19 14 Other completed Vandana ELLER - [facility] & [place] 10/03/2022 14:44:51 cardiac catheterization completed Vandana ELLER - [facility] & [place] 10/03/2022 14:46:31 strabismus surgery completed Vandana ELLER - [facility] & [place] 10/03/2022 14:55:15 Imaging Results None recorded. Procedure Notes None recorded. Medical Equipment None Reported. Allergies Allergen ID Allergen Name Allergen Category Reaction Reaction Severity Criticality Documentation Date Start Date Code Code System Note Provider Name and Address Organization Details Recorded Time 96750 aspirin medicatio n chest pain wheezing moderate severe Not available 10/02/2022 1191 RxNorm Vandana catherine, RAFITA - [facility] & [place] 09:22:42 21803 Bactrim medicatio n arthralgi a (joint pain) muscle cramps severe severe Not available 10/02/2022 01972 9 RxNorm Vandana catherine, RAFITA - [facility] & [place] 09:22:49 12009 insect venom environme nt confusion cough dizziness fever flushing headache wheezing moderate moderate moderate mild moderate moderate moderate Not available 10/02/2022 70897 UNK Vandana catherine, RAFITA - [facility] & [place] 09:23:13 14504 Pneumococ georges vaccine Not available anaphylax is chest pain facial swelling nausea rash wheezing moderate moderate moderate moderate moderate moderate Not available 10/02/2022 87797 7 RxNorm Vandana Steven null, [place] - [facility] & [place] 09:23:25 04349 rosuvasta tin medicatio n eye swelling facial swelling respirato ry distress moderate moderate moderate Not available 10/02/2022 49575 2 RxNorm RAFITA Reed - [facility] - [place] & [place] 2 09:23:35 Medications Name Sig [...] % 60 /min 97.7 [degF] 49.6 kg/m2 390057. 86 g 119/79 mm[Hg] Bianca Smith [facility] & [place] 13:31:54 Social History Question Answer Notes LastModified by [employer] Details LastModified Time Tobacco Smoking Status Never [facility]oker [facility] [place] 10/03/2022 14:32:09 Do You Have An Advance Directive? No Information not available 10/03/2022 Are You Blind Or Do You Have Difficulty Seeing? No Information not available 10/03/2022 What Was The Date Of Your Most Recent Tobacco Screening? 09/17/2022 Information not available 10/03/2022 Do You Have Any Pets? Yes [email or web address] Information not available 09/25/2023 Are You Passively Exposed To Smoke? No Information not available 10/03/2022 Are You Currently In School? No MASTERS [email or web address] Information not available 09/25/2023 Sex: Female Functional Status Question Answer Note LastModified by Organizat ion Details LastModified Time Do you use any illicit or recreational drugs? No Information not available 10/03/2022 What is your level of alcohol consumption? 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 Occasional Information not available 10/03/2022 Mental Status Question Answer Note LastModified by Organization D etails LastModified Time Do you feel stressed (tense, restless, nervous, or anxious, or unable to sleep at night)? [id number] Information not available 10/03/2022 Family History Relationship [...] SNOMED-CT Code Diagnosis ICD10 Code Diagnosis Note [id number] [facility]105 [address] [facility] [address] [place] [address] 02/23/2025 13:48:33 02/23/2025 14:17:11 Recurrent urinary tract infection 191655674 N39.0 Will check lab work. Will send urine off for a culture. Will see patient back in 1 week. 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 Patient will follow up in 2 weeks. Call the office if anything persists or worsens. 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 see above Health Concerns Section Related Observation LastModified by Organization Detai ls LastModified Time None Recorded Concern Status LastModified by Organization Details LastModified Time None Recorded Payers Encounter Date Sequence Insurance Name Policy Number Policy Valdivia Covered Member ID Valdivia Member ID Guarantor Name 03/02/2025 1 [employer] [facility] (MEDICAID HMO) Lissy Valdez [id number] Lissy Valdez Notes Date Note Type Note Provider Name and Address Organization Details Recorded Time 03/02/2025 text/html patient presents to clinic for follow up. Urine culture results received. Patient denies any fever. She is scheduled to have surgery to remove her stone on . Marilou David, VENEER STOCK GRADER [address], [place], [address], [facility] - [facility] - [place] & [place] 03/02/2025 13:35:40 OBGyn Episode No OBEpisode recorded.
[2025-03-23 14:21] VITALS: BP 134/69; PULSE 54; RESP 16; TEMP 36.6; O2SAT 97
[2025-03-23] MEDS: SODIUM CHLORIDE 0.9% 10ML FLUSH SYRINGE 10 ML IV (14:21)
[2025-03-23] MEDS: SODIUM CHLORIDE 0.9% 50ML BAG 50 ML IV (14:21)
[2025-03-23] MEDS: ERTAPENEM SODIUM 1 GM in 0.9 % SODIUM CHLORIDE 50 ML IV (14:21)
[2025-03-23 15:00] VITALS: BP 109/64; PULSE 59; RESP 16; TEMP 36.6; O2SAT 96
== END 2025-03-23 15:00 | disposition home or self-care (01) ==
LOC: INF 14:05
PROVIDERS: PCP Internal Medicine; Visit Provider Internal Medicine
DX: N12 Tubulo-interstitial nephritis, not specified as acute or chronic (principal); N20.0 Calculus of kidney
CPT/HCPCS: 96365; J1335

== ENCOUNTER 2025-03-24 10:20 | Outpatient (CLI) | payer OTHER, SELFPAY ==
--- OUTSIDE RECORDS SUMMARY | 2025-03-24 10:24 | XMS_ITS | Data Portability ---
Author Organization [facility] [place] [facility] [place] Alejandro ADMIN Address [address] [place] [address] Care Team Providers Care Industrial Analyst Name Role Phone ZAHRAA BENAVIDES Primary Care Provider Assessment Encounter Date Assessment Date Assessment LastModified by Organization Details LastModified Time 08/07/2023 08/07/[address] scan images onto our system. Will review to determine the degree of stone burden bilaterally in the kidneys. Will also plan cystoscopy and pelvic exam in the office in the near future. [email or web address] Not available 08/07/2023 15:34:46 09/25/2023 09/25/2023 I [...] in 6 months with KUB and UA. [email or web address] Not available 09/25/2023 15:29:09 Plan of Treatment Reminders Order Date Submit Date Provider Last Modified By Organization Details Last Modified Time Details Appointments None recorded. Lab urinalysis, dipstick 2024 025 [email or web address] [facility] -[facility], [address], [place], [address], 5 14:18:52 CBC w/ diff 2024 025 [facility] (Registration ), [address], [place], [address], 5 16:11:55 CMP, serum or plasma 2024 025 [facility] (Registration ), [address], [place], [address], 5 15:39:03 ESR (erythrocyt e sedimentati on rate), blood [address] (Registration ), [address] [facility], [place], [address], 5 08:54:47 C-reactive protein, quantitativ e, serum or plasma [address] (Registration ), [address], [place], [address], 5 08:54:48 culture, urine 2024 025 VERGENNES [facility], [address], [address], [place], [address], 5 19:09:52 urinalysis, dipstick 2022 023 [email or web address] [facility], [address] [facility], [address], [place], [address], 3 16:08:29 Referral None recorded. Procedures None [...] usal 7.7 - 58.5 Perfo rmed at: [facility] [address] [place] [address] 1269 Lab Direc tor: Los carson PhD, Phone : [phone] Not Available [facility] ([facility]) [address] [facility], [place], [address], 04/03/2023 10:13:10 04/02/20 23 04/03/2023 FSH FSH, serum 5.4 mIU/m L Adult Femal e: Folli cular phase 3.5 - 12.5 Ovula tion phase 4.7 - 21.5 Lutea l phase 1.7 - 7.7 Postm enopa usal 25.8 - 134.8 Perfo rmed at: [facility] [address] [place] [address] 126 Lab Direc tor: Los carson PhD, Phone : [phone] Not Available [facility] ([facility]) [address] [facility], [place], [address], 04/03/2023 10:14:16 08/07/20 23 08/07/2023 urina lysis , dipst ick Leukocytes (reference range) trace Not Available [facility] [address] [facility] [address] [place] [address], [address], 08/07/2023 15:15:15 08/07/2008/07/2023 urina lysis , dipst ick Nitrite (reference range:) negati ve Not Available [facility] [address] [facility] [address], [place], [address], 08/07/2023 15:15:15 08/07/20 23 08/07/2023 urina lysis , dipst ick Urobilinogen (reference range) 0.2 Not Available [facility] [address] [place] [address] [address], [place], [address], 08/07/2023 15:15:15 08/07/2008/07/2023 urina lysis , dipst ick Protein (reference range) negati ve Not Available [facility] [address], [place], [address], 08/07/2023 15:15:15 08/07/2008/07/2023 urina lysis , dipst ick pH (reference range 5-8.5) 6.0 Not Available [facility] [address], [place], [address], 08/07/2023 15:15:15 08/07/2008/07/2023 urina lysis , dipst ick Blood (reference range:) small Not Available [facility] [address] [place] [address] [address], [place], [address], 08/07/2023 15:15:15 08/07/2008/07/2023 urina lysis , dipst ick Specific [place] (reference range) 1.015 Not Available [facility] [address], [place], [address], 08/07/2023 15:15:15 08/07/2008/07/2023 urina lysis , dipst ick Ketone (reference range) negati ve Not Available [address], [place], [address], 08/07/2023 15:15:15 08/07/2008/07/2023 urina lysis , dipst ick Bilirubin (reference range) negati ve Not Available [address], [place], [address], 08/07/2023 15:15:15 08/07/20 23 08/07/2023 urina lysis , dipst ick Glucose (reference range) 250 Not Available [facility] [address] [facility] [address], [place], [address], 08/07/2023 15:15:15 08/07/20 23 08/07/2023 urina lysis , dipst ick Color (reference range: yellow-brown ) Yellow Not Available [facility] [address] [facility] [address], [place], [address], 08/07/2023 15:15:15 02/24/20 25 02/23/2025 CBC AUTO W DIFF WBC 11.3 K/uL 4.0-10 .5 high Not Available [facility] ([facility]) [address] [facility], [place], [address], 02/23/2025 15:02:28 02/24/20 25 02/23/2025 CBC AUTO W DIFF RBC 5.7 M/mm3 4.2-6. 4 Not Available [facility] ([facility]) [address], [place], [address], 02/23/2025 15:02:28 02/24/20 25 02/23/2025 CBC AUTO W DIFF HGB 15.8 gm/dL 12.5-1 6.0 Not Available [facility] ([facility]) [address] [facility], [place], [address], 02/23/2025 15:02:28 02/24/20 25 02/23/2025 CBC AUTO W DIFF HCT 48.8 % 37.0-4 7.0 high Not Available [facility] ([facility]) [address], [place], [address], 02/23/2025 15:02:28 02/24/20 25 02/23/2025 CBC AUTO W DIFF MCV 86.4 fL 78-100 Not Available [facility] ([facility]) [address], [place], [address], 02/23/2025 15:02:28 02/24/20 25 02/23/2025 CBC AUTO W DIFF MCH 28.0 pg 27-31 Not Available [facility] ([facility]) [address], [place], [address], 02/23/2025 15:02:28 02/24/20 25 02/23/2025 CBC AUTO W DIFF MCHC 32.4 g/dL 32-36 Not Available [facility] ([facility]) [address], [place], [address], 02/23/2025 15:02:28 02/24/20 25 02/23/2025 CBC AUTO W DIFF RDW 13.7 % 11.5-1 4.0 Not Available [facility] ([facility]) [address], [place], [address], 02/23/2025 15:02:28 02/24/20 25 02/23/2025 CBC AUTO W DIFF platelet count 380 K/uL 150-45 0 Not Available [facility] ([facility]) [address], [place], [address], 02/23/2025 15:02:28 02/24/20 25 02/23/2025 CBC AUTO W DIFF MPV 10.3 fL 6-9.5 high Not Available [facility] ([facility]) [address], [place], [address], 02/23/2025 15:02:28 02/24/20 25 02/23/2025 CBC AUTO W DIFF neutrophil% 66.5 % 43-65 high Not Available [facility] ([facility]) [address], [place], [address], 02/23/2025 15:02:28 02/24/20 25 02/23/2025 CBC AUTO W DIFF lymphocyte% 24.3 % 20.5-4 5.5 Not Available [facility] ([facility]) [address], [place], [address], 02/23/2025 15:02:28 02/24/20 25 02/23/2025 CBC AUTO W DIFF monocyte% 6.0 % 5.5-11 .7 Not Available [facility] ([facility]) [address], [place], [address], 02/23/2025 15:02:02/24/20 25 02/23/2025 CBC AUTO W DIFF eosinophil% 2.3 % 0.9-2. 9 Not Available [facility] ([facility]) [address] [facility], [place], [address], 02/23/2025 15:02:28 02/24/20 25 02/23/2025 CBC AUTO W DIFF basophil% 0.6 % 0.2-1. 0 Not Available [facility] ([facility]) [address] [place], [address], 02/23/2025 15:02:28 02/24/20 25 02/23/2025 CBC AUTO W DIFF immature granulocytes % 0.3 % 0.0-0. 8 Not Available [facility] ([facility]) [address] [place], [address], 02/23/2025 15:02:28 02/24/20 25 02/23/2025 CBC AUTO W DIFF nucleated red blood cells % 0.0 % Not Available [facility] ([facility]) [address] [place], [address], 02/23/2025 15:02:28 02/24/20 25 02/23/2025 CBC AUTO W DIFF neutrophil# 7.5 K/uL 2.2-4. 8 high Not Available [facility] ([facility]) [address] [facility], [place], [address], 02/23/2025 15:02:28 02/24/20 25 02/23/2025 CBC AUTO W DIFF lymphocyte# 2.7 cell/ mcL 1.3-2. 9 Not Available [facility] ([facility]) [address], [place], [address], 02/23/2025 15:02:28 02/24/20 25 02/23/2025 CBC AUTO W DIFF monocyte# 0.7 cell/ mcL 0.3-0. 8 Not Available [facility] ([facility]) [address] [facility], [place], [address], 02/23/2025 15:02:28 02/24/20 25 02/23/2025 CBC AUTO W DIFF eosinophil# 0.3 cell/ mcL 0-0.2 high Not Available [facility] ([facility]) [address] [facility], [place], [address], 02/23/2025 15:02:28 02/24/20 25 02/23/2025 CBC AUTO W DIFF basophil# 0.1 cell/ mcL 0.0-1. 0 Not Available [facility] ([facility]) [address] [facility], [place], [address], 02/23/2025 15:02:28 02/24/20 25 02/23/2025 CBC AUTO W DIFF immature gramulocytes # 0.03 K/uL Not Available [facility] ([facility]) [address] [facility], [place], [address], 02/23/2025 15:02:28 02/24/20 25 02/23/2025 CBC AUTO W DIFF nucleated red blood cells # 0.00 K/uL Not Available [facility] ([facility]) [address] [facility], [place], [address], 02/23/2025 15:02:28 04/29/02/23/2025 CBC AUTO W DIFF manual differential NO Not Available [facility] ([facility]) [address], [place], [address], 02/23/2025 15:02:28 02/24/20 25 02/23/2025 COMP METAB OLIC PANEL sodium 138 mmol/ L 136-14 5 Not Available [facility] ([facility]) [address], [place], [address], 02/23/2025 15:39:03 02/24/20 25 02/23/2025 COMP METAB OLIC PANEL potassium 3.7 mmol/ L 3.6-5. 0 Not Available [facility] ([facility]) [address] , [place], [address], 02/23/2025 15:39:03 02/24/20 25 02/23/2025 COMP METAB OLIC PANEL chloride 98 mmol/ L 98-107 Not Available [facility] ([facility]) [address] , [place], [address], 02/23/2025 15:39:03 02/24/20 25 02/23/2025 COMP METAB OLIC PANEL carbon dioxide 26.8 mmol/ L 21.0-3 2.0 Not Available [facility] ([facility]) [address] , [place], [address], 02/23/2025 15:39:03 02/24/20 25 02/23/2025 COMP METAB OLIC PANEL anion gap 16.9 Not Available [facility] ([facility]) [address] [place], [address], 02/23/2025 15:39:03 02/24/20 25 02/23/2025 COMP METAB OLIC PANEL glucose 200 mg/dL 70-120 high Not Available [facility] ([facility]) [address], [place], [address], 02/23/2025 15:39:03 02/24/20 25 02/23/2025 COMP METAB OLIC PANEL BUN 12 mg/dL 7-18 Not Available [facility] ([facility]) [address], [place], [address], 02/23/2025 15:39:03 02/24/20 25 02/23/2025 COMP METAB OLIC PANEL creatinine 1.1 mg/dL 0.6-1. 3 Not Available [facility] ([facility]) [address], [place], [address], 02/23/2025 15:39:03 02/24/20 25 02/23/2025 COMP METAB [...] brown ing kiney funct ion. Not Available [facility] ([facility]) [address] , [place], [address], 02/23/2025 15:39:03 02/24/20 25 02/23/2025 COMP METAB OLIC PANEL osmolality (calculated) 293 mOsm/ kg 275-30 1 OSMOL ALITY IS A CALCU LATIO N UTILI ZING THE SERUM /PLAS MA SODIU M, GLUCO SE AND UREA NITRO GEN (BUN) LEVEL S. FOR THE MOST ACCUR ATE RESUL T A MEASU RED SERUM OSMOL ALITY IS SUGGE STED. Not Available [facility] ([facility]) [address], [place], [address], 02/23/2025 15:39:03 02/24/20 25 02/23/2025 COMP METAB OLIC PANEL total protein 8.1 g/dL 6.4-8. 2 Not Available [facility] ([facility]) [address] , [place], [address], 02/23/2025 15:39:03 02/24/20 25 02/23/2025 COMP METAB OLIC PANEL albumin 3.6 g/dL 3.4-5. 0 Not Available [facility] ([facility]) [address] , [place], [address], 02/23/2025 15:39:03 02/24/20 25 02/23/2025 COMP METAB OLIC PANEL globulin 4.5 Not Available [facility] ([facility]) [address], [place], [address], 02/23/2025 15:39:03 02/24/20 25 02/23/2025 COMP METAB OLIC PANEL alb/glob ratio 0.8 0.7-2 Not Available [facility] ([facility]) [address], [place], [address], 02/23/2025 15:39:03 02/24/20 25 02/23/2025 COMP METAB OLIC PANEL calcium 10.2 mg/dL 8.5-10 .5 Not Available [facility] ([facility]) [address], [place], [address], 02/23/2025 15:39:03 02/24/20 25 02/23/2025 COMP METAB OLIC PANEL bilirubin total 0.60 mg/dL 0.10-1 .00 Not Available [facility] ([facility]) [address] [place], [address], 02/23/2025 15:39:03 02/24/20 25 02/23/2025 COMP METAB OLIC PANEL AST (SGOT) 46 U/L 0-37 high Not Available [facility] ([facility]) [address], [place], [address], 02/23/2025 15:39:03 02/24/20 25 02/23/2025 COMP METAB OLIC PANEL ALT (SGPT) 78 U/L 0-65 high Not Available [facility] ([facility]) [address], [place], [address], 02/23/2025 15:39:03 02/24/20 25 02/23/2025 COMP METAB OLIC PANEL alk phosphatase 111 U/L 46-116 Not Available [facility] ([facility]) [address] [facility], [place], [address], 02/23/2025 15:39:03 02/24/20 25 02/23/2025 C-KARLI CTIVE PROTE IN (CRP) C-reactive protein, quant 2.0 mg/dL 0.05-0 .300 high Not Available [facility] ([facility]) [address] [facility], [place], [address], 02/23/2025 15:40:11 02/24/20 25 02/23/2025 SED RATE sed rate auto 9 0-20 Not Available [facility] ([facility]) [address] [facility], [place], [address], 02/23/2025 15:43:35 02/24/20 25 02/27/2025 URINE CULTU RE,CO MPREH ENSIV E urine culture,comp rehensive FINAL REPORT abnormal Not Available [facility] ([facility]) [address] [facility], [place], [address], 02/27/2025 19:09:52 02/24/20 25 02/27/2025 URINE CULTU [...] units per mL Not Available [facility] ([facility]) [address] [facility], [place], [address], 02/27/2025 19:09:52 02/24/2002/27/2025 URINE CULTU RE,CO MPREH [...] as Cefta rolin e Not Available [facility] ([facility]) [address] [facility], [place], [address], 02/27/2025 19:09:52 02/24/2002/27/2025 URINE CULTU RE,CO MPREH [...] mycin R S Not Available [facility] ([facility]) [address] [facility], [place], [address], 02/27/2025 19:09:52 02/24/20 25 02/23/2025 urina lysis , dipst ick Leukocytes (reference range) trace Not Available [place] [address], [place], [address], 02/23/2025 14:16:48 02/24/20 25 02/23/2025 urina lysis , dipst ick Nitrite (reference range:) negati ve Not Available [place] [address] [address] [facility] [address], [place], [address], 02/23/2025 14:16:48 02/24/20 25 02/23/2025 urina lysis , dipst ick Urobilinogen (reference range) 0.2 Not Available [place] [address] [address] [facility] [address], [place], [address], 02/23/2025 14:16:48 02/24/20 25 02/23/2025 urina lysis , dipst ick Protein (reference range) negati ve Not Available [place] [address] [address] [facility] [address], [place], [address], 02/23/2025 14:16:48 02/24/20 25 02/23/2025 urina lysis , dipst ick pH (reference range 5-8.5) 6.0 Not Available [place] [address] [address] [facility] [address], [place], [address], 02/23/2025 14:16:48 02/24/20 25 02/23/2025 urina lysis , dipst ick Blood (reference range:) small Not Available [place] [address] [address] [facility] [address], [place], [address], 02/23/2025 14:16:48 02/24/20 25 02/23/2025 urina lysis , dipst ick Specific [place] (reference range) 1.015 Not Available [place] [address] [address] [facility] [address], [place], [address], 02/23/2025 14:16:48 02/24/20 25 02/23/2025 urina lysis , dipst ick Ketone (reference range) negati ve Not Available [place] [address] [address] [facility] [address], [place], [address], 02/23/2025 14:16:48 02/24/20 25 02/23/2025 urina lysis , dipst ick Bilirubin (reference range) negati ve Not Available [place] [address] [address] [facility] [address], [place], [address], 02/23/2025 14:16:48 02/24/20 25 02/23/2025 urina lysis , dipst ick Glucose (reference range) 500 Not Available [place] [address] [address] [facility] [address], [place], [address], 02/23/2025 14:16:48 02/24/20 25 02/23/2025 urina lysis , dipst ick Color (reference range: yellow-brown ) Dark Yellow Not Available [place] [address] [address] [facility] [address], [place], [address], 02/23/2025 14:16:48 Result Notes None recorded. Problems Name Problem SNOMED Code Status Onset Date Resolution Date Notes Provider Name and Address Organization Details Recorded Time Syncope 622974577 Active 2021 Malina Hernandez DO [address], [place], [address] , [facility] - [facility] - [place] & [place] 15:33:04 Hypersomnia 65429077 Active 2021 Malina Hernandez DO [address] [facility], [place], [address] , [place] - [facility] & [place] 15:34:08 Problem Notes None recorded. Procedures Surgical History Date Name Laterality Status Provider Name and Address Organization Details Recorded Time 09/25/20 23 Cystoscopy-Female completed Silvio Valdez MD [address] [facility], [place], [address], [place] - [facility] - [place] & [place] 09/25/2023 15:26:11 04/04/20 22 Date of Last Pap Smear completed Vandana Eugenioa [place] - [facility] - [place] & [place] 10/03/2022 14:31:43 10/28/19 22 Crepe Maker Surgery completed Vandana Dalla [place] - [facility] - [place] & [place] 10/03/2022 14:45:45 10/28/19 17 Cholecystectomy completed Vandana Dalla [place] - [facility] & [place] 10/03/2022 14:32:27 10/28/19 14 Other completed Vandana Dalla [place] - [facility] [place] & [place] 10/03/2022 14:44:51 cardiac catheterization completed Vandana Dalla [place] - [facility] & [place] 10/03/2022 14:46:31 strabismus surgery completed Vandana Dalla [place] - [facility] - [place] & [place] 10/03/2022 14:55:15 Imaging Results None recorded. Procedure Notes None recorded. Medical Equipment None Reported. Allergies Allergen ID Allergen Name Allergen Category Reaction Reaction Severity Criticality Documentation Date Start Date Code Code System Note Provider Name and Address Organization Details Recorded Time 23981 aspirin medicatio n chest pain wheezing moderate severe Not available 10/02/2022 1191 RxNorm Vandana Eugenioa null, [place] - [facility] & [place] 09:22:42 52295 Bactrim medicatio n arthralgi a (joint pain) muscle cramps severe severe Not available 10/02/2022 14868 9 RxNorm Vandana Eugenioa null, [place] - [facility] & [place] 09:22:49 69363 insect venom environme nt confusion cough dizziness fever flushing headache wheezing moderate moderate moderate mild moderate moderate moderate Not available 10/02/2022 83450 UNK Vandana catherine, [facility] - [facility] & [place] 2 09:23:13 18275 Pneumococ georges vaccine Not available anaphylax is chest pain facial swelling nausea rash wheezing moderate moderate moderate moderate moderate moderate Not available 10/02/2022 62371 7 RxNorm Vandana catherine, [facility] [place] [facility] & [place] 2 09:23:25 47140 rosuvasta tin medicatio n eye swelling facial swelling respirato ry distress moderate moderate moderate Not available 10/02/2022 11537 2 RxNorm Vandana catherine, [facility] - [facility] & [place] 2 09:23:35 Medications Name [...] % 80 /min 98.6 [degF] 49.6 kg/m2 047983. 86 g 116/100 mm[Hg] Bianca ELLER - [facility] 5 13:59:18 Date Recorded Body height Heart rate Oxygen saturation Oxygen saturation in Arterial blood by Pulse oximetry Heart rate Body temperature Body mass index (BMI) Body weight Systolic And Diastolic Provider Name and Address Organization Details Last Updated DateTime 5 160.02 cm 60 /min 97 % 97 % 60 /min 97.7 [degF] 49.6 kg/m2 529403. 86 g 119/79 mm[Hg] Bianca ELLER - [facility] 5 13:31:54 Date Recorded Body height Body temperature Oxygen saturation Oxygen saturation in Arterial blood by Pulse oximetry Inhaled oxygen flow rate Heart rate Body mass index (BMI) Body weight Systolic And Diastolic Provider Name and Address Organization Details Last Updated DateTime 3 157.48 cm 97.1 [degF] 98 % 98 % 2 L/min 89 /min 48.3 kg/m2 409040. 39 g 128/98 mm[Hg] Phillip Morrison [facility] & [place] 13:04:48 Date Recorded Body height Body mass index (BMI) Body weight Systolic And Diastolic Provider Name and Address Organization Details Last Updated DateTime 08/07/2023 157.48 cm 49.4 kg/m2 892785.94 g 125/75 mm[Hg] Britney Yee [facility] & [place] 08/07/2023 15:05:24 Date Recorded Body height Body mass index (BMI) Body weight Systolic And Diastolic Provider Name and Address Organization Details Last Updated DateTime 09/25/2023 157.48 cm 51.2 kg/m2 418717.86 g 126/76 mm[Hg] Ioana Ayala [facility] & [place] 09/25/2023 15:07:04 Social History Question Answer Notes LastModified by [employer] Details LastModified Time Tobacco Smoking Status Never Smoker Vandana Beckergodfrey catherine, [facility] & [place] 10/03/2022 14:32:09 Do You Have An Advance Directive? No Information not available 10/03/2022 Are You Blind Or Do You Have Difficulty Seeing? No Information not available 10/03/2022 What Was The Date Of Your Most Recent Tobacco Screening? 09/17/2022 Information not available 10/03/2022 Do You Have Any Pets? Yes [email or web address] Information not available 09/25/2023 Are You Passively Exposed To Smoke? No Information not available 10/03/2022 Are You Currently In School? No MASTERS Information not available 09/25/2023 Sex: Female Functional Status Question Answer Note LastModified by [employer] Electronic ion Details LastModified Time Do you use any illicit or recreational drugs? No Information not available 10/03/2022 What is your level of alcohol consumption? 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 Occasional Information not available 10/03/2022 Mental Status Question Answer Note LastModified by Organization D etails LastModified Time Do you feel stressed (tense, restless, nervous, or anxious, or unable to sleep at night)? [id number] Information not available 10/03/2022 Family History Relationship [...] SNOMED-CT Code Diagnosis ICD10 Code Diagnosis Note [id number] Mal[facility]DO [facility] [address] [facility],[address] [place] [address] 10/03/2022 14:07:23 10/03/2022 15:38:25 Syncope [id number] She has been experienci ng these stereotypi georges passing out episodes for five years. No definite witnessed convulsion s but some associated brief confusion afterwards .will order EEG to rule out neurologic causes of syncope Hypersomnia 67106532 G47 .10 She describes some significan t episodes of pathologic al sleepiness . She will fall asleep without warning in the middle of talking. This is very infrequent but can be suggestive of narcolepsy . Will order PSG with MSLT to evaluate this in more detail. 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 [id number] Silvio Valdez MD [facility] Urology [address] [place] [address],[address] [place] [address] 08/07/2023 14:35:57 08/07/2023 15:40:17 Recurrent urinary tract infection 023752432 N39.0 Kidney stone 32983284 N2 0.0 Chronic th oracic back pain [id number] 85417 M54.6 Microscopic hematuria 19 0346157 R31.29 [id number] Silvio Valdez MD [facility] Urology [address] [facility] [place] [address] 09/25/2023 14:26:57 09/25/2023 15:25:02 Recurrent urinary tract infection 617468609 N39.0 Kidney stone 95154595 N2 0.0 Microscopic hematuria 19 7622008 R31.29 [id number] [facility] [address] [facility] [address] [place] [address] 02/23/2025 13:48:33 02/23/2025 14:17:11 Recurrent urinary tract infection 106317073 N39.0 Will check lab work. Will send urine off for a culture. Will see patient back in 1 week. 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 Patient will follow up in 2 weeks. Call the office if anything persists or worsens. 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 see above Health Concerns Section Related Observation LastModified by Organization Detai ls LastModified Time None Recorded Concern Status LastModified by Organization Details LastModified Time None Recorded Advance Directives Directive N: Payers Insurance Date Sequence Insurance Name Policy Number Policy Valdivia Covered Member ID Valdivia Member ID Guarantor Name 09/18/2023 1 [facility] (POS II) [facility] [id number] [facility] 02/27/2025 1 [facility] (MEDICAID HMO) [facility] [id number] [facility] Notes Date Note Type Note [...] time. 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 Micheline Lackey MD [address] [place] [address], [place], [address], [facility] & [place] 04/18/2023 12:50:43 08/07/2023 text/html Location: [...] status post hysterectomy. MD [address], [place], [address], [facility] - NT [facility] [place] 08/07/2023 15:35:17 09/25/2023 text/html Patient [...] status post hysterectomy. MD [address], [place], [address], [place] [facility] [place] 09/25/2023 15:30:10 02/23/2025 text/html patient [...] 2025. Marilou David APRN [address], [place], [address], [place] [facility] [place] 02/24/2025 10:59:38 03/02/2025 text/html patient presents to clinic for follow up. Urine culture results received. Patient denies any fever. She is scheduled to have surgery to remove her stone on . Marilou David APRN [address], [place], [address], [place] [facility] [place] 03/02/2025 13:35:40 OBGyn Episode No OBEpisode recorded.
[2025-03-24] MEDS: SODIUM CHLORIDE 0.9% 50ML BAG 50 ML IV (10:33)
[2025-03-24] MEDS: ERTAPENEM SODIUM 1 GM in 0.9 % SODIUM CHLORIDE 50 ML IV (10:33)
[2025-03-24 10:35] VITALS: BP 103/68; PULSE 55; RESP 17; O2SAT 97
[2025-03-24 11:05] VITALS: BP 107/56; PULSE 60; RESP 16
== END 2025-03-24 11:15 | disposition home or self-care (01) ==
LOC: INF 10:23
PROVIDERS: PCP Internal Medicine; Visit Provider Internal Medicine
DX: N10 Acute pyelonephritis (principal)
CPT/HCPCS: 96365; J1335

== ENCOUNTER 2025-03-25 12:38 | Outpatient (CLI) | payer OTHER, SELFPAY ==
--- OUTSIDE RECORDS SUMMARY | 2025-03-25 12:40 | XMS_ITS | Data Portability ---
Author Organization [facility] Mahamed morgan, [facility] Address [address] [facility] [address] [place] [address] Assessment No assessment recorded. Plan of Treatment Reminders Order Date Submit Date Provider Last Modified By Organization Details Last Modified Time Details Appointments None recorded. Lab None recorded. Referral aquatic therapy referral 2017 018 [email or web address] 2 Not available 8 11:14:18 cognitive behavioral therapy referral 2017 018 [email or web address] 2 [facility], [address] [facility], [address], [place], [address], 8 11:14:19 occupationa l therapist referral 2017 018 [email or web address] 2 Not available 8 11:14:17 Procedures None recorded. Surgeries None recorded. Imaging None recorded. Medication Orders None recorded. Patient TargetsNo targets recorded. Patient Instructions Encounter Date Encounter Id Patient Instructions Last Modified By Organization Details Last Modified Time 08/13/2018 [id number] learning about healthy weight Not available 08/13/2018 [...] Name and Address Organization Details Recorded Time 999471 aspirin medicatio n Not available Not available [...] Address Organization Details Last Updated DateTime 8 195325. 12 g 48.2 kg/m2 160.02 cm 18 /min 61 /min 132 mm[Hg] 96 mm[Hg] [facility] 8 10:06:40 Social History Question Answer [...] Time Father No current problems or disability [email or web address] Not available 08/13 10:02:01 Mother No current problems or disability [email or web address] Not available 08/13 10:02:01 Medical History Condition [...] SNOMED-CT Code Diagnosis ICD10 Code Diagnosis Note [id number] CLIFF BARBER MD RHEUMATOL OGY [address] [place] [address] 08/13/2018 09:13:44 08/13/2018 10:48:47 Pain of multiple joints 65033489 M25.50 she has clinical features of Dixon OA. no features of an inflammato ry arthritis noted. no features of rheumatoid noted. 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 would suggest to avoid steroids and start OT as stated below. she can RTC with me as prn. 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 Health Concerns Section Related Observation LastModified by Organization Detai ls LastModified Time None Recorded Concern Status LastModified by Organization Details LastModified Time None Recorded Advance Directives Directive None Recorded Payers Insurance Date Sequence Insurance Name Policy Number Policy Valdivia Covered Member ID Valdivia Member ID Guarantor Name 02/03/2024 1 [id number] 01/24/2024 1 [place] [employer] [employer] - FFS/TRADITIO NAL Lissy [place] [id number] Lissy [facility] 02/04/2024 1 [facility] ([facility]ICA[facility]) [facility] [id number] [facility] 01/31/2024 1 [facility] (PP[facility] [id number] Lissy [facility] [id number] Lissy [facility] Notes Date Note Type Note [...] and a normal TSH. CLIFF BARBER MD [facility] [place], [address], [facility] 08/13/2018 17:00:47 OBGyn Episode No OBEpisode recorded.
--- OUTSIDE RECORDS SUMMARY | 2025-03-25 12:40 | XMS_ITS | Continuity of Care Document ---
Author Organization [facility] Infectious Disease -105 Address [address] [facility] [place] [address] Care Team Providers Care Web Services Professional Name Role Phone SHERI BENAVIDESGHT Primary Care Provider Assessment No assessment recorded. Plan of Treatment Reminders Order Date Submit Date Provider Last Modified By Organization Details Last Modified Time Details Appointments None recorded. Lab urinalysis, dipstick [address] Infectious Disease -105, [address] [facility] [address], [place], [address], 14:18:52 CBC w/ diff 2024 025 [facility] (Registration ), [address] [facility], [place], [address], 16:11:55 CMP, serum or plasma 2024 025 [facility] (Registration ), [address] [facility], [place], [address], 5 15:39:03 ESR (erythrocyt e sedimentati on rate), blood [address] (Registration ), [address] [facility], [place], [address], 5 08:54:47 C-reactive protein, quantitativ e, serum or plasma 2024 025 [facility] (Registration ), [address], [place], [address], 08:54:48 culture, urine 2024 025 [facility], [address], [address], [place], [address], 19:09:52 Referral None recorded. Procedures None recorded. Surgeries None recorded. Imaging None recorded. Medication Orders None recorded. Patient TargetsNo targets recorded. Patient InstructionsNo instructions recorded. Reason for Referral None Reported. Results Created Date Observation Date Name Description Value Unit Range Abnormal Flag Note LastModifiedBy Organization Detail LastModifiedTime 02/24/2002/23/2025 urina lysis , dipst ick Leukocytes (reference range) trace Not Available [facility] Infectious Disease -[facility] [address] [facility] [address], [place], [address], 02/23/2025 14:16:48 02/24/20 25 02/23/2025 urina lysis , dipst ick Nitrite (reference range:) negati ve Not Available [facility] Infectious Disease -[facility] [address], [place], [address], 02/23/2025 14:16:48 02/24/20 25 02/23/2025 urina lysis , dipst ick Urobilinogen (reference range) 0.2 Not Available [facility] Infectious Disease -[facility] [address], [place], [address], 02/23/2025 14:16:48 02/24/20 25 02/23/2025 urina lysis , dipst ick Protein (reference range) negati ve Not Available [facility] Infectious Disease -[facility] [address] [facility] [address], [place], [address], 02/23/2025 14:16:48 02/24/20 25 02/23/2025 urina lysis , dipst ick pH (reference range 5-8.5) 6.0 Not Available [place] [address] [address] [facility] [address], [place], [address], 02/23/2025 14:16:48 02/24/20 25 02/23/2025 urina lysis , dipst ick Blood (reference range:) small Not Available [place] [address] [address] [facility] [address], [place], [address], 02/23/2025 14:16:48 02/24/20 25 02/23/2025 urina lysis , dipst ick Specific [place] (reference range) 1.015 Not Available [place] [address] [address] [facility] [address], [place], [address], 02/23/2025 14:16:48 02/24/20 25 02/23/2025 urina lysis , dipst ick Ketone (reference range) negati ve Not Available [place] [address] [address] [facility] [address], [place], [address], 02/23/2025 14:16:48 02/24/20 25 02/23/2025 urina lysis , dipst ick Bilirubin (reference range) negati ve Not Available [place] [address] [address] [facility] [address], [place], [address], 02/23/2025 14:16:48 02/24/20 25 02/23/2025 urina lysis , dipst ick Glucose (reference range) 500 Not Available [place] [address] [address] [facility] [address], [place], [address], 02/23/2025 14:16:48 02/24/20 25 02/23/2025 urina lysis , dipst ick Color (reference range: yellow-brown ) Dark Yellow Not Available [facility] Infectious Disease -[address], [place], [address], 02/23/2025 14:16:48 Result Notes None recorded. Problems Name Problem SNOMED Code Status Onset Date Resolution Date Notes Provider Name and Address Organization Details Recorded Time Syncope 288029565 Active 2021 Malina Hernandez DO [address] [facility], [place], [address] , [place] - [facility] - [place] & [place] 15:33:04 Hypersomnia 32513010 Active 2021 Malina Hernandez DO [address] [facility], [place], [address] , [place] [facility] [place] & [place] 15:34:08 Problem Notes None recorded. Procedures Surgical History Date Name Laterality Status Provider Name and Address Organization Details Recorded Time 09/25/20 23 Cystoscopy-Female completed Silvio Valdez MD [address] [facility], [place], [address], [place] [facility] [place] [facility] [place] 09/25/2023 15:26:11 04/04/20 22 Date of Last Pap Smear completed Vandana Dalla [place] [facility] [place] & [place] 10/03/2022 14:31:43 10/28/19 22 Gas Scrubber Operator Surgery completed Vandana Dalla [place] [facility] [place] [facility] [place] 10/03/2022 14:45:45 10/28/19 17 Cholecystectomy completed Vandana Dalla [place] [facility] [place] & [place] 10/03/2022 14:32:27 10/28/19 14 Other completed Vandana Dalla [place] [facility] [place] 10/03/2022 14:44:51 cardiac catheterization completed Vandana Dalla [place] [facility] [place] 10/03/2022 14:46:31 strabismus surgery completed Vandana Dalla [place] [facility] [place] 10/03/2022 14:55:15 Imaging Results None recorded. Procedure Notes None recorded. Medical Equipment None Reported. Allergies Allergen ID Allergen Name Allergen Category Reaction Reaction Severity Criticality Documentation Date Start Date Code Code System Note Provider Name and Address Organization Details Recorded Time 67508 aspirin medicatio n chest pain wheezing moderate severe Not available 10/02/2022 1191 RxNorm Vandana catherine, [facility] & [place] 2 09:22:42 87603 Bactrim medicatio n arthralgi a (joint pain) muscle cramps severe severe Not available 10/02/2022 45313 9 RxNorm Vandana catherine, RAFITA DARLING [facility] & [place] 2 09:22:49 59151 insect venom environme nt confusion cough dizziness fever flushing headache wheezing moderate moderate moderate mild moderate moderate moderate Not available 10/02/2022 93667 UNK Vandana catherine, RAFITA Shea [facility] & [place] 2 09:23:13 37082 Pneumococ georges vaccine Not available anaphylax is chest pain facial swelling nausea rash wheezing moderate moderate moderate moderate moderate moderate Not available 10/02/2022 05725 7 RxNorm Vandana catherine, RAFITA DARLING [facility] & [place] 2 09:23:25 60042 rosuvasta tin medicatio n eye swelling facial swelling respirato ry distress moderate moderate moderate Not available 10/02/2022 06263 2 RxNorm Vandana catherine, RAFITA DARLING [facility] & [place] 2 09:23:35 Medications Name [...] % 80 /min 98.6 [degF] 49.6 kg/m2 890003. 86 g 116 mm[Hg] 100 mm[Hg] Bianca Smith [place] [facility] - [place] & [place] 5 13:59:18 Social History Question Answer Notes LastModified by [employer] Details LastModified Time Tobacco Smoking Status Never Smoker Vandana Harris florin, [place] - [facility] - [place] & [place] 10/03/2022 14:32:09 Do You Have An Advance Directive? No Information not available 10/03/2022 Are You Blind Or Do You Have Difficulty Seeing? No Information not available 10/03/2022 What Was The Date Of Your Most Recent Tobacco Screening? 09/17/2022 Information not available 10/03/2022 Do You Have Any Pets? Yes [email or web address] Information not available 09/25/2023 Are You Passively Exposed To Smoke? No Information not available 10/03/2022 Are You Currently In School? No [employer] [email or web address] Information not available 09/25/2023 Sex: Female Functional Status Question Answer Note LastModified by [employer] Details LastModified Time Do you use any illicit or recreational drugs? No Information not available 10/03/2022 What is your level of alcohol consumption? 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 Occasional Information not available 10/03/2022 Mental Status Question Answer Note LastModified by Organization D etails LastModified Time Do you feel stressed (tense, restless, nervous, or anxious, or unable to sleep at night)? 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 Will send urine off for a culture. Will see patient back in 1 week. Health Concerns Section Related Observation LastModified by Organization Detai ls LastModified Time None Recorded Concern Status LastModified by Organization Details LastModified Time None Recorded Payers Encounter Date Sequence Insurance Name Policy Number Policy Valdivia Covered Member ID Valdivia Member ID Guarantor Name 02/23/2025 1 [facility] (MEDICAID HMO) Lissystas Valdez [id number] Lissy Valdez Notes Date Note Type Note [...] 2025. Marilou David, PREETI [address], [place], [address], [facility] - [place] & [place] 02/24/2025 10:59:38 OBGyn Episode No OBEpisode recorded.
--- OUTSIDE RECORDS SUMMARY | 2025-03-25 12:41 | XMS_ITS | Data Portability ---
Author Organization [facility] [place] [facility] [place] Alejandro ADMIN Address [address] [place] [id number] Care Team Providers Care Carpentry Foreman Name Role Phone ZAHRAA BENAVIDES Primary Care Provider Assessment Encounter Date Assessment Date Assessment LastModified by Organization Details LastModified Time 08/07/2023 08/07/[address] scan images onto our system. Will review to determine the degree of stone burden bilaterally in the kidneys. Will also plan cystoscopy and pelvic exam in the office in the near future. [email or web address] Not available 08/07/2023 15:34:46 09/25/2023 09/25/2023 I [...] in 6 months with KUB and UA. [email or web address] Not available 09/25/2023 15:29:09 Plan of Treatment Reminders Order Date Submit Date Provider Last Modified By Organization Details Last Modified Time Details Appointments None recorded. Lab urinalysis, dipstick 2024 025 [email or web address] [facility] Infectious Disease -105, [address], [place], [address], 5 14:18:52 CBC w/ diff 2024 025 [facility] (Registration ), [address], [place], [address], 5 16:11:55 CMP, serum or plasma 2024 025 [facility] (Registration ), [address], [place], [address], 5 15:39:03 ESR (erythrocyt e sedimentati on rate), blood [address] (Registration ), [address] [facility], [place], [address], 5 08:54:47 C-reactive protein, quantitativ e, serum or plasma [address] (Registration ), [address], [place], [address], 5 08:54:48 culture, urine 2024 025 [facility], [address], [address], [place], [address], 5 19:09:52 urinalysis, dipstick 2022 023 [email or web address] [facility]rology, [address] [address] [facility], [address], [place], [address], 3 16:08:29 Referral None recorded. Procedures None [...] usal 7.7 - 58.5 Perfo rmed at: [facility] [address] [place] [address]69 Lab Direc tor: Los carson PhD, Phone : [phone] Not Available [facility] ([facility]) [address] [facility], [place], [address], 04/03/2023 10:13:10 04/02/20 23 04/03/2023 FSH FSH, serum 5.4 mIU/m L Adult Femal e: Folli cular phase 3.5 - 12.5 Ovula tion phase 4.7 - 21.5 Lutea l phase 1.7 - 7.7 Postm enopa usal 25.8 - 134.8 Perfo rmed at: [facility] [address] [place] [address] Lab Direc tor: Los carson PhD, Phone : [phone] Not Available [facility] ([facility]) [address] [facility], [place], [address], 04/03/2023 10:14:16 08/07/20 23 08/07/2023 urina lysis , dipst ick Leukocytes (reference range) trace Not Available [facility] [address] [facility] [address] [place] [address], [address], 08/07/2023 15:15:15 08/07/2008/07/2023 urina lysis , dipst ick Nitrite (reference range:) negati ve Not Available [facility] [address] [address], [place], [address], 08/07/2023 15:15:15 08/07/20 23 08/07/2023 urina lysis , dipst ick Urobilinogen (reference range) 0.2 Not Available [facility] [address] [place] [address] [address], [place], [address], 08/07/2023 15:15:15 08/07/2008/07/2023 urina lysis , dipst ick Protein (reference range) negati ve Not Available [facility] [address], [place], [address], 08/07/2023 15:15:15 08/07/2008/07/2023 urina lysis , dipst ick pH (reference range 5-8.5) 6.0 Not Available [facility] [address], [place], [address], 08/07/2023 15:15:15 08/07/2008/07/2023 urina lysis , dipst ick Blood (reference range:) small Not Available [facility] [address] [place] [address] [address], [place], [address], 08/07/2023 15:15:15 08/07/2008/07/2023 urina lysis , dipst ick Specific [place] (reference range) 1.015 Not Available [facility] [address], [place], [address], 08/07/2023 15:15:15 08/07/2008/07/2023 urina lysis , dipst ick Ketone (reference range) negati ve Not Available [address], [place], [address], 08/07/2023 15:15:15 08/07/2008/07/2023 urina lysis , dipst ick Bilirubin (reference range) negati ve Not Available [address], [place], [address], 08/07/2023 15:15:15 08/07/20 23 08/07/2023 urina lysis , dipst ick Glucose (reference range) 250 Not Available [facility] [address] [address], [place], [address], 08/07/2023 15:15:15 08/07/20 23 08/07/2023 urina lysis , dipst ick Color (reference range: yellow-brown ) Yellow Not Available [facility] [address] [facility] [address], [place], [address], 08/07/2023 15:15:15 02/24/20 25 02/23/2025 CBC AUTO W DIFF WBC 11.3 K/uL 4.0-10 .5 high Not Available [facility] ([facility]) [address] [facility], [place], [address], 02/23/2025 15:02:28 02/24/20 25 02/23/2025 CBC AUTO W DIFF RBC 5.7 M/mm3 4.2-6. 4 Not Available [facility] ([facility]) [address], [place], [address], 02/23/2025 15:02:28 02/24/20 25 02/23/2025 CBC AUTO W DIFF HGB 15.8 gm/dL 12.5-1 6.0 Not Available [facility] ([facility]) [address] [facility], [place], [address], 02/23/2025 15:02:28 02/24/20 25 02/23/2025 CBC AUTO W DIFF HCT 48.8 % 37.0-4 7.0 high Not Available [facility] ([facility]) [address], [place], [address], 02/23/2025 15:02:28 02/24/20 25 02/23/2025 CBC AUTO W DIFF MCV 86.4 fL 78-100 Not Available [facility] ([facility]) [address], [place], [address], 02/23/2025 15:02:28 02/24/20 25 02/23/2025 CBC AUTO W DIFF MCH 28.0 pg 27-31 Not Available [facility] ([facility]) [address], [place], [address], 02/23/2025 15:02:28 02/24/20 25 02/23/2025 CBC AUTO W DIFF MCHC 32.4 g/dL 32-36 Not Available [facility] ([facility]) [address], [place], [address], 02/23/2025 15:02:28 02/24/20 25 02/23/2025 CBC AUTO W DIFF RDW 13.7 % 11.5-1 4.0 Not Available [facility] ([facility]) [address], [place], [address], 02/23/2025 15:02:28 02/24/20 25 02/23/2025 CBC AUTO W DIFF platelet count 380 K/uL 150-45 0 Not Available [facility] ([facility]) [address], [place], [address], 02/23/2025 15:02:28 02/24/20 25 02/23/2025 CBC AUTO W DIFF MPV 10.3 fL 6-9.5 high Not Available [facility] ([facility]) [address], [place], [address], 02/23/2025 15:02:28 02/24/20 25 02/23/2025 CBC AUTO W DIFF neutrophil% 66.5 % 43-65 high Not Available [facility] ([facility]) [address], [place], [address], 02/23/2025 15:02:28 02/24/20 25 02/23/2025 CBC AUTO W DIFF lymphocyte% 24.3 % 20.5-4 5.5 Not Available [facility] ([facility]) [address], [place], [address], 02/23/2025 15:02:28 02/24/20 25 02/23/2025 CBC AUTO W DIFF monocyte% 6.0 % 5.5-11 .7 Not Available [facility] ([facility]) [address], [place], [address], 02/23/2025 15:02:02/24/20 25 02/23/2025 CBC AUTO W DIFF eosinophil% 2.3 % 0.9-2. 9 Not Available [facility] ([facility]) [address] [facility], [place], [address], 02/23/2025 15:02:28 02/24/20 25 02/23/2025 CBC AUTO W DIFF basophil% 0.6 % 0.2-1. 0 Not Available [facility] ([facility]) [address] [place], [address], 02/23/2025 15:02:28 02/24/20 25 02/23/2025 CBC AUTO W DIFF immature granulocytes % 0.3 % 0.0-0. 8 Not Available [facility] ([facility]) [address] [place], [address], 02/23/2025 15:02:28 02/24/20 25 02/23/2025 CBC AUTO W DIFF nucleated red blood cells % 0.0 % Not Available [facility] ([facility]) [address] [place], [address], 02/23/2025 15:02:28 02/24/20 25 02/23/2025 CBC AUTO W DIFF neutrophil# 7.5 K/uL 2.2-4. 8 high Not Available [facility] ([facility]) [address] [facility], [place], [address], 02/23/2025 15:02:28 02/24/20 25 02/23/2025 CBC AUTO W DIFF lymphocyte# 2.7 cell/ mcL 1.3-2. 9 Not Available [facility] ([facility]) [address], [place], [address], 02/23/2025 15:02:28 02/24/20 25 02/23/2025 CBC AUTO W DIFF monocyte# 0.7 cell/ mcL 0.3-0. 8 Not Available [facility] ([facility]) [address] [facility], [place], [address], 02/23/2025 15:02:28 02/24/20 25 02/23/2025 CBC AUTO W DIFF eosinophil# 0.3 cell/ mcL 0-0.2 high Not Available [facility] ([facility]) [address] [facility], [place], [address], 02/23/2025 15:02:28 02/24/20 25 02/23/2025 CBC AUTO W DIFF basophil# 0.1 cell/ mcL 0.0-1. 0 Not Available [facility] ([facility]) [address] [facility], [place], [address], 02/23/2025 15:02:28 02/24/20 25 02/23/2025 CBC AUTO W DIFF immature gramulocytes # 0.03 K/uL Not Available [facility] ([facility]) [address] [facility], [place], [address], 02/23/2025 15:02:28 02/24/20 25 02/23/2025 CBC AUTO W DIFF nucleated red blood cells # 0.00 K/uL Not Available [facility] ([facility]) [address] [facility], [place], [address], 02/23/2025 15:02:28 04/29/02/23/2025 CBC AUTO W DIFF manual differential NO Not Available [facility] ([facility]) [address], [place], [address], 02/23/2025 15:02:28 02/24/20 25 02/23/2025 COMP METAB OLIC PANEL sodium 138 mmol/ L 136-14 5 Not Available [facility] ([facility]) [address], [place], [address], 02/23/2025 15:39:03 02/24/20 25 02/23/2025 COMP METAB OLIC PANEL potassium 3.7 mmol/ L 3.6-5. 0 Not Available [facility] ([facility]) [address] , [place], [address], 02/23/2025 15:39:03 02/24/20 25 02/23/2025 COMP METAB OLIC PANEL chloride 98 mmol/ L 98-107 Not Available [facility] ([facility]) [address] , [place], [address], 02/23/2025 15:39:03 02/24/20 25 02/23/2025 COMP METAB OLIC PANEL carbon dioxide 26.8 mmol/ L 21.0-3 2.0 Not Available [facility] ([facility]) [address] , [place], [address], 02/23/2025 15:39:03 02/24/20 25 02/23/2025 COMP METAB OLIC PANEL anion gap 16.9 Not Available [facility] ([facility]) [address] [place], [address], 02/23/2025 15:39:03 02/24/20 25 02/23/2025 COMP METAB OLIC PANEL glucose 200 mg/dL 70-120 high Not Available [facility] ([facility]) [address], [place], [address], 02/23/2025 15:39:03 02/24/20 25 02/23/2025 COMP METAB OLIC PANEL BUN 12 mg/dL 7-18 Not Available [facility] ([facility]) [address], [place], [address], 02/23/2025 15:39:03 02/24/20 25 02/23/2025 COMP METAB OLIC PANEL creatinine 1.1 mg/dL 0.6-1. 3 Not Available [facility] ([facility]) [address], [place], [address], 02/23/2025 15:39:03 02/24/20 25 02/23/2025 COMP METAB [...] brown ing kiney funct ion. Not Available [facility] ([facility]) [address] , [place], [address], 02/23/2025 15:39:03 02/24/20 25 02/23/2025 COMP METAB OLIC PANEL osmolality (calculated) 293 mOsm/ kg 275-30 1 OSMOL ALITY IS A CALCU LATIO N UTILI ZING THE SERUM /PLAS MA SODIU M, GLUCO SE AND UREA NITRO GEN (BUN) LEVEL S. FOR THE MOST ACCUR ATE RESUL T A MEASU RED SERUM OSMOL ALITY IS SUGGE STED. Not Available [facility] ([facility]) [address], [place], [address], 02/23/2025 15:39:03 02/24/20 25 02/23/2025 COMP METAB OLIC PANEL total protein 8.1 g/dL 6.4-8. 2 Not Available [facility] ([facility]) [address] , [place], [address], 02/23/2025 15:39:03 02/24/20 25 02/23/2025 COMP METAB OLIC PANEL albumin 3.6 g/dL 3.4-5. 0 Not Available [facility] ([facility]) [address] , [place], [address], 02/23/2025 15:39:03 02/24/20 25 02/23/2025 COMP METAB OLIC PANEL globulin 4.5 Not Available [facility] ([facility]) [address], [place], [address], 02/23/2025 15:39:03 02/24/20 25 02/23/2025 COMP METAB OLIC PANEL alb/glob ratio 0.8 0.7-2 Not Available [facility] ([facility]) [address], [place], [address], 02/23/2025 15:39:03 02/24/20 25 02/23/2025 COMP METAB OLIC PANEL calcium 10.2 mg/dL 8.5-10 .5 Not Available [facility] ([facility]) [address], [place], [address], 02/23/2025 15:39:03 02/24/20 25 02/23/2025 COMP METAB OLIC PANEL bilirubin total 0.60 mg/dL 0.10-1 .00 Not Available [facility] ([facility]) [address] [place], [address], 02/23/2025 15:39:03 02/24/20 25 02/23/2025 COMP METAB OLIC PANEL AST (SGOT) 46 U/L 0-37 high Not Available [facility] ([facility]) [address], [place], [address], 02/23/2025 15:39:03 02/24/20 25 02/23/2025 COMP METAB OLIC PANEL ALT (SGPT) 78 U/L 0-65 high Not Available [facility] ([facility]) [address], [place], [address], 02/23/2025 15:39:03 02/24/20 25 02/23/2025 COMP METAB OLIC PANEL alk phosphatase 111 U/L 46-116 Not Available [facility] ([facility]) [address] [facility], [place], [address], 02/23/2025 15:39:03 02/24/20 25 02/23/2025 C-KARLI CTIVE PROTE IN (CRP) C-reactive protein, quant 2.0 mg/dL 0.05-0 .300 high Not Available [facility] ([facility]) [address] [facility], [place], [address], 02/23/2025 15:40:11 02/24/20 25 02/23/2025 SED RATE sed rate auto 9 0-20 Not Available [facility] ([facility]) [address] [facility], [place], [address], 02/23/2025 15:43:35 02/24/20 25 02/27/2025 URINE CULTU RE,CO MPREH ENSIV E urine culture,comp rehensive FINAL REPORT abnormal Not Available [facility] ([facility]) [address] [facility], [place], [address], 02/27/2025 19:09:52 02/24/20 25 02/27/2025 URINE CULTU [...] ng units per mL Not Available [facility] ([facility]) [address] [facility], [place], [address], 02/27/2025 19:09:52 02/24/2002/27/2025 URINE CULTU RE,CO MPREH [...] as Cefta rolin e Not Available [facility] ([facility]) [address] [facility], [place], [address], 02/27/2025 19:09:52 02/24/2002/27/2025 URINE CULTU RE,CO MPREH [...] Vanco mycin R S Not Available [facility] ([facility]) [address] [facility], [place], [address], 02/27/2025 19:09:52 02/24/20 25 02/23/2025 urina lysis , dipst ick Leukocytes (reference range) trace Not Available [place] [address], [place], [address], 02/23/2025 14:16:48 02/24/20 25 02/23/2025 urina lysis , dipst ick Nitrite (reference range:) negati ve Not Available [place] [address] [address] [facility] [address], [place], [address], 02/23/2025 14:16:48 02/24/20 25 02/23/2025 urina lysis , dipst ick Urobilinogen (reference range) 0.2 Not Available [place] [address] [address] [facility] [address], [place], [address], 02/23/2025 14:16:48 02/24/20 25 02/23/2025 urina lysis , dipst ick Protein (reference range) negati ve Not Available [place] [address] [address] [facility] [address], [place], [address], 02/23/2025 14:16:48 02/24/20 25 02/23/2025 urina lysis , dipst ick pH (reference range 5-8.5) 6.0 Not Available [place] [address] [address] [facility] [address], [place], [address], 02/23/2025 14:16:48 02/24/20 25 02/23/2025 urina lysis , dipst ick Blood (reference range:) small Not Available [place] [address] [address] [facility] [address], [place], [address], 02/23/2025 14:16:48 02/24/20 25 02/23/2025 urina lysis , dipst ick Specific [place] (reference range) 1.015 Not Available [place] [address] [address] [facility] [address], [place], [address], 02/23/2025 14:16:48 02/24/20 25 02/23/2025 urina lysis , dipst ick Ketone (reference range) negati ve Not Available [place] [address] [address] [facility] [address], [place], [address], 02/23/2025 14:16:48 02/24/20 25 02/23/2025 urina lysis , dipst ick Bilirubin (reference range) negati ve Not Available [place] [address] [address] [facility] [address], [place], [address], 02/23/2025 14:16:48 02/24/20 25 02/23/2025 urina lysis , dipst ick Glucose (reference range) 500 Not Available [place] [address] [address] [facility] [address], [place], [address], 02/23/2025 14:16:48 02/24/20 25 02/23/2025 urina lysis , dipst ick Color (reference range: yellow-brown ) Dark Yellow Not Available [place] [address] [address] [facility] [address], [place], [address], 02/23/2025 14:16:48 Result Notes None recorded. Problems Name Problem SNOMED Code Status Onset Date Resolution Date Notes Provider Name and Address Organization Details Recorded Time Syncope 940653597 Active 2021 Malina Hernandez DO [address], [place], [address] , [facility] - [facility] - [place] & [place] 15:33:04 Hypersomnia 46248933 Active 2021 Malina Hernandez DO [address] [facility], [place], [address] , [place] - [facility] & [place] 15:34:08 Problem Notes None recorded. Procedures Surgical History Date Name Laterality Status Provider Name and Address Organization Details Recorded Time 09/25/20 23 Cystoscopy-Female completed Silvio Valdez MD [address] [facility], [place], [address], [place] - [facility] - [place] & [place] 09/25/2023 15:26:11 04/04/20 22 Date of Last Pap Smear completed Vandana Eugenioa [place] - [facility] - [place] & [place] 10/03/2022 14:31:43 10/28/19 22 Compliance Paralegal Surgery completed Vandana Dalla [place] - [facility] - [place] & [place] 10/03/2022 14:45:45 10/28/19 17 Cholecystectomy completed Vandana Dalla [place] - [facility] & [place] 10/03/2022 14:32:27 10/28/19 14 Other completed Vandana Dalla [place] - [facility] [place] & [place] 10/03/2022 14:44:51 cardiac catheterization completed Vandana Dalla [place] - [facility] & [place] 10/03/2022 14:46:31 strabismus surgery completed Vandana Dalla [place] - [facility] - [place] & [place] 10/03/2022 14:55:15 Imaging Results None recorded. Procedure Notes None recorded. Medical Equipment None Reported. Allergies Allergen ID Allergen Name Allergen Category Reaction Reaction Severity Criticality Documentation Date Start Date Code Code System Note Provider Name and Address Organization Details Recorded Time 90353 aspirin medicatio n chest pain wheezing moderate severe Not available 10/02/2022 1191 RxNorm Vandana Eugenioa null, [place] - [facility] & [place] 09:22:42 28103 Bactrim medicatio n arthralgi a (joint pain) muscle cramps severe severe Not available 10/02/2022 36180 9 RxNorm Vandana Eugenioa null, [place] - [facility] & [place] 09:22:49 01313 insect venom environme nt confusion cough dizziness fever flushing headache wheezing moderate moderate moderate mild moderate moderate moderate Not available 10/02/2022 89076 UNK Vandana catherine, [facility] - [facility] & [place] 2 09:23:13 21935 Pneumococ georges vaccine Not available anaphylax is chest pain facial swelling nausea rash wheezing moderate moderate moderate moderate moderate moderate Not available 10/02/2022 19289 7 RxNorm Vandana catherine, [facility] [place] [facility] & [place] 2 09:23:25 64423 rosuvasta tin medicatio n eye swelling facial swelling respirato ry distress moderate moderate moderate Not available 10/02/2022 78107 2 RxNorm Vandana catherine, [facility] - [facility] & [place] 2 09:23:35 Medications Name Sig [...] % 80 /min 98.6 [degF] 49.6 kg/m2 994370. 86 g 116 mm[Hg] 100 mm[Hg] Bianca Smith [place] - [facility] 5 13:59:18 Date Recorded Body height Heart rate Oxygen saturation Oxygen saturation in Arterial blood by Pulse oximetry Heart rate Body temperature Body mass index (BMI) Body weight Systolic blood pressure Diastolic blood pressure Provider Name and Address Organization Details Last Updated DateTime 5 160.02 cm 60 /min 97 % 97 % 60 /min 97.7 [degF] 49.6 kg/m2 270291. 86 g 119 mm[Hg] 79 mm[Hg] Bianca ELLER - [facility] 5 13:31:54 Date Recorded Body height Body temperature Oxygen saturation Oxygen saturation in Arterial blood by Pulse oximetry Inhaled oxygen flow rate Heart rate Body mass index (BMI) Body weight Systolic blood pressure Diastolic blood pressure Provider Name and Address Organization Details Last Updated DateTime 3 157.48 cm 97.1 [degF] 98 % 98 % 2 L/min 89 /min 48.3 kg/m2 890571. 39 g 128 mm[Hg] 98 mm[Hg] Phillip Morrison [facility] & [place] 3 13:04:48 Date Recorded Body height Body mass index (BMI) Body weight Systolic blood pressure Diastolic blood pressure Provider Name and Address Organization Details Last Updated DateTime 08/07/2023 157.48 cm 49.4 kg/m2 296916.9 4 g 125 mm[Hg] 75 mm[Hg] Britney Yee [facility] & [place] 3 15:05:24 Date Recorded Body height Body mass index (BMI) Body weight Systolic blood pressure Diastolic blood pressure Provider Name and Address Organization Details Last Updated DateTime 09/25/2023 157.48 cm 51.2 kg/m2 616764.8 6 g 126 mm[Hg] 76 mm[Hg] Ioana Ayala [facility] & [place] 3 15:07:04 Social History Question Answer Notes LastModified by [email or web address] ion Details LastModified Time Tobacco Smoking Status Never Smoker [facility] [place] 10/03/2022 14:32:09 Do You Have An Advance Directive? No Information not available 10/03/2022 Are You Blind Or Do You Have Difficulty Seeing? No Information not available 10/03/2022 What Was The Date Of Your Most Recent Tobacco Screening? 09/17/2022 Information not available 10/03/2022 Do You Have Any Pets? Yes [email or web address] Information not available 09/25/2023 Are You Passively Exposed To Smoke? No Information not available 10/03/2022 Are You Currently In School? No [employer] [email or web address] Information not available 09/25/2023 Sex: Female Functional Status Question Answer Note LastModified by Organizat ion Details LastModified Time Do you use any illicit or recreational drugs? No Information not available 10/03/2022 What is your level of alcohol consumption? 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 Occasional Information not available 10/03/2022 Mental Status Question Answer Note LastModified by Organization D etails LastModified Time Do you feel stressed (tense, restless, nervous, or anxious, or unable to sleep at night)? [id number] Information not available 10/03/2022 Family History Relationship [...] SNOMED-CT Code Diagnosis ICD10 Code Diagnosis Note [id number] [facility] [address] [facility],[address] [place] [address] 10/03/2022 14:07:23 10/03/2022 15:38:25 Syncope [id number] R55 She has been experienci ng these stereotypi georges passing out episodes for five years. No definite witnessed convulsion s but some associated brief confusion afterwards .will order EEG to rule out neurologic causes of syncope Hypersomnia [id number] G47 .10 She describes some significan t episodes of pathologic al sleepiness . She will fall asleep without warning in the middle of talking. This is very infrequent but can be suggestive of narcolepsy . Will order PSG with MSLT to evaluate this in more detail. 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 [id number] Silvio Valdez MD [facility] [address] [place] [address],[address] [place] [address] 08/07/2023 14:35:57 08/07/2023 15:40:17 Recurrent urinary tract infection 716570897 N39.0 Kidney stone 15820615 N2 0.0 Chronic th oracic back pain 9432155107 28301 M54.6 Microscopic hematuria 19 7656081 R31.29 [id number] Silvio Valdez MD [facility] [address] [place] [address],[address] [place] [address] 09/25/2023 14:26:57 09/25/2023 15:25:02 Recurrent urinary tract infection 835631092 N39.0 Kidney stone 49925437 N2 0.0 Microscopic hematuria 19 2111377 R31.29 [id number] [facility] -105 [address] [facility] [address] [place] [address] 02/23/2025 13:48:33 02/23/2025 14:17:11 Recurrent urinary tract infection 776440267 N39.0 Will check lab work. Will send urine off for a culture. Will see patient back in 1 week. 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 Patient will follow up in 2 weeks. Call the office if anything persists or worsens. 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 see above Health Concerns Section Related Observation LastModified by Organization Detai ls LastModified Time None Recorded Concern Status LastModified by Organization Details LastModified Time None Recorded Advance Directives Directive N: Payers Insurance Date Sequence Insurance Name Policy Number Policy Valdivia Covered Member ID Valdivia Member ID Guarantor Name 09/18/2023 1 [employer] [facility] (POS II) [facility] [id number] [facility] 02/27/2025 1 [facility] (MEDICAID HMO) [facility] [id number] [facility] Notes Date Note Type Note Provider [...] time. Patient states she is seen her vaccinator for this, was told it is possibly a lymphocele. Micheline Lackey MD [address] [facility], [place], [address], [facility] - [place] & [place] 04/18/2023 12:50:43 08/07/2023 text/html Location: [...] status post hysterectomy. Silvio Valdez MD [address] [facility], [place], [address], [facility] - [facility] - [place] & [place] 08/07/2023 15:35:17 09/25/2023 text/html Patient [...] hysterectomy. Silvio Valdez MD [address], [place], [address], [facility] & [place] 09/25/2023 15:30:10 02/23/2025 text/html patient [...] 2025. Marilou David APRN [address], [place], [address], [facility] & [place] 02/24/2025 10:59:38 03/02/2025 text/html patient presents to clinic for follow up. Urine culture results received. Patient denies any fever. She is scheduled to have surgery to remove her stone on . Marilou David APRN [address], [place], [address], [facility] - [facility] & [place] 03/02/2025 13:35:40 OBGyn Episode No OBEpisode recorded.
--- OUTSIDE RECORDS SUMMARY | 2025-03-25 12:41 | XMS_ITS | Continuity of Care Document ---
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 Procedure Notes None recorded. Medical Equipment None Reported. Allergies Allergen ID Allergen Name Allergen Category Reaction Reaction Severity Criticality Documentation Date Start Date Code Code System Note Provider Name and Address Organization Details Recorded Time 38082 aspirin medicatio n chest pain wheezing moderate severe Not available 10/02/2022 1191 RxNorm Vandana catherine, RAFITA - [facility] & [place] 09:22:42 72056 Bactrim medicatio n arthralgi a (joint pain) muscle cramps severe severe Not available 10/02/2022 82241 9 RxNorm Vandana catherine, RAFITA - [facility] & [place] 09:22:49 80998 insect venom environme nt confusion cough dizziness fever flushing headache wheezing moderate moderate moderate mild moderate moderate moderate Not available 10/02/2022 27546 UNK Vandana catherine, RAFITA - [facility] & [place] 09:23:13 38440 Pneumococ georges vaccine Not available anaphylax is chest pain facial swelling nausea rash wheezing moderate moderate moderate moderate moderate moderate Not available 10/02/2022 73154 7 RxNorm Vandana Steven null, [place] - [facility] & [place] 09:23:25 93382 rosuvasta tin medicatio n eye swelling facial swelling respirato ry distress moderate moderate moderate Not available 10/02/2022 93542 2 RxNorm RAFITA Reed - [facility] - [place] & [place] 2 09:23:35 Medications Name Sig [...] % 60 /min 97.7 [degF] 49.6 kg/m2 758324. 86 g 119 mm[Hg] 79 mm[Hg] Bianca Smith [facility] & [place] 13:31:54 Social History Question Answer Notes LastModified by Organizat ion Details LastModified Time Tobacco Smoking Status [facility] [place] 10/03/2022 14:32:09 Do You Have An Advance Directive? No Information not available 10/03/2022 Are You Blind Or Do You Have Difficulty Seeing? No Information not available 10/03/2022 What Was The Date Of Your Most Recent Tobacco Screening? 09/17/2022 Information not available 10/03/2022 Do You Have Any Pets? Yes [email or web address] Information not available 09/25/2023 Are You Passively Exposed To Smoke? No Information not available 10/03/2022 Are You Currently In School? No MASTERS [email or web address] Information not available 09/25/2023 Sex: Female Functional Status Question Answer Note LastModified by Organizat ion Details LastModified Time Do you use any illicit or recreational drugs? No Information not available 10/03/2022 What is your level of alcohol consumption? 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 Occasional Information not available 10/03/2022 Mental Status Question Answer Note LastModified by Organization D etails LastModified Time Do you feel stressed (tense, restless, nervous, or anxious, or unable to sleep at night)? [id number] Information not available 10/03/2022 Family History Relationship [...] SNOMED-CT Code Diagnosis ICD10 Code Diagnosis Note [id number] [facility] [address] 02/23/2025 13:48:33 02/23/2025 14:17:11 Recurrent urinary tract infection 193176935 N39.0 Will check lab work. Will send urine off for a culture. Will see patient back in 1 week. 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 Patient will follow up in 2 weeks. Call the office if anything persists or worsens. 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 Urine culture results received. Patient denies any fever. She is scheduled to have surgery to remove her stone on . Marilou David, FREIGHT TEAM ASSOCIATE [address], [place], [address], [place] - [facility] - [place] & [place] 03/02/2025 13:35:40 OBGyn Episode No OBEpisode recorded.
[2025-03-25] MEDS: SODIUM CHLORIDE 0.9% 10ML FLUSH SYRINGE 10 ML IV (13:08)
[2025-03-25] MEDS: SODIUM CHLORIDE 0.9% 50ML BAG 50 ML IV (13:08)
[2025-03-25 13:25] VITALS: BP 113/70; PULSE 62; RESP 16; TEMP 36.7; O2SAT 96
[2025-03-25] MEDS: ERTAPENEM SODIUM 1 GM in 0.9 % SODIUM CHLORIDE 50 ML IV (13:25)
[2025-03-25 14:00] VITALS: BP 123/72; PULSE 64; RESP 16; TEMP 36.7; O2SAT 95
== END 2025-03-25 14:05 | disposition home or self-care (01) ==
LOC: INF 12:39
PROVIDERS: PCP Internal Medicine; Visit Provider Internal Medicine
DX: N12 Tubulo-interstitial nephritis, not specified as acute or chronic (principal); N20.0 Calculus of kidney
CPT/HCPCS: J1335

== ENCOUNTER 2025-03-26 12:11 | Outpatient (CLI) | payer OTHER, SELFPAY ==
[2025-03-26 12:22] VITALS: BP 103/75; PULSE 59; RESP 20; TEMP 36.6; O2SAT 98
[2025-03-26] MEDS: ERTAPENEM SODIUM 1 GM in 0.9 % SODIUM CHLORIDE 50 ML IV (12:22)
[2025-03-26] MEDS: SODIUM CHLORIDE 0.9% 10ML FLUSH SYRINGE 10 ML IV (12:23)
[2025-03-26] MEDS: SODIUM CHLORIDE 0.9% 50ML BAG 50 ML IV (12:23)
[2025-03-26 13:13] VITALS: BP 106/79; PULSE 62; RESP 20; O2SAT 99
== END 2025-03-26 13:13 | disposition home or self-care (01) ==
LOC: INF 12:12
PROVIDERS: PCP Internal Medicine; Visit Provider Internal Medicine
DX: N12 Tubulo-interstitial nephritis, not specified as acute or chronic (principal); N20.0 Calculus of kidney
CPT/HCPCS: 96365; J1335

== ENCOUNTER 2025-03-27 12:12 | Outpatient (CLI) | payer OTHER, SELFPAY ==
--- OUTSIDE RECORDS SUMMARY | 2025-03-27 12:14 | XMS_ITS | Data Portability ---
Author Organization [facility] Mahamed morgan, ABHAYS MCELHATTAN CLOSED Address [address] [facility] [address] [place] [address] Assessment No assessment recorded. Plan of Treatment Reminders Order Date Submit Date Provider Last Modified By Organization Details Last Modified Time Details Appointments None recorded. Lab None recorded. Referral aquatic therapy referral 2017 018 [email or web address] 2 Not available 8 11:14:18 cognitive behavioral therapy referral 2017 018 [email or web address] 2 [facility], [address] [facility], [address], [place], [address], 8 11:14:19 occupationa l therapist referral 2017 018 2 Not available 8 11:14:17 Procedures None recorded. Surgeries None recorded. Imaging None recorded. Medication Orders None recorded. Patient TargetsNo targets recorded. Patient Instructions Encounter Date Encounter Id Patient Instructions Last Modified By Organization Details Last Modified Time 08/13/2018 [id number] learning about healthy weight Not available 08/13/2018 [...] Name and Address Organization Details Recorded Time 794856 aspirin medicatio n Not available Not available Not available 08/13/2018 1191 RxNorm Melinda Hudson [facility] 8 10:01:54 Medications Name Sig Start Date [...] Address Organization Details Last Updated DateTime 8 261025. 12 g 48.2 kg/m2 160.02 cm 18 /min 61 /min 132 mm[Hg] 96 mm[Hg] Melinda Hudson [facility] 8 10:06:40 Social History Question Answer Notes LastModified by Organizat ion Details LastModified Time Tobacco Smoking Status Never Smoker Melinda Hudson [facility] 08/13/2018 10:02:03 What Was The Date Of Your Most Recent Tobacco Screening? 08/13/2018 Information n ot available 12/15/2019 Sex: Unknown Functional Status None recorded. Mental Status None recorded. Family History Relationship Description Onset Age of this Age Resolved Age Notes LastModified by Organization Details LastModified Time Father No current problems or disability [email or web address] Not available 08/13 10:02:01 Mother No current [...] SNOMED-CT Code Diagnosis ICD10 Code Diagnosis Note [id number] CLIFF BARBER MD RHE[facility]AT[facility] [address] [place] [address] 08/13/2018 09:13:44 08/13/2018 10:48:47 Pain of multiple joints 31216739 M25.50 she has clinical features of [place] OA. no features of an inflammato ry arthritis noted. no features of rheumatoid noted. 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 would suggest to avoid steroids and start OT as stated below. she can RTC with me as prn. 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 Health Concerns Section Related Observation LastModified by Organization Detai ls LastModified Time None Recorded Concern Status LastModified by Organization Details LastModified Time None Recorded Advance Directives Directive None Recorded Payers Insurance Date Sequence Insurance Name Policy Number Policy Valdivia Covered Member ID Valdivia Member ID Guarantor Name 02/03/2024 1 [facility] ([id number] 01/24/2024 1 [place] [employer] [place] - FFS/TRADITIO NAL Lissy [place] [id number] L[facility]y [facility] 02/04/2024 1 [facility] (MEDICAID HMO) [facility] [id number] [facility] 01/31/2024 1 [facility] (PP[facility] [id number] Lissy [facility] [id number] Lissy [facility] Notes Date Note Type Note Provider [...] and a normal TSH. CLIFF BARBER MD [facility] [place], [address], [facility] 08/13/2018 17:00:47 OBGyn Episode No OBEpisode recorded.
--- OUTSIDE RECORDS SUMMARY | 2025-03-27 12:15 | XMS_ITS | Continuity of Care Document ---
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 Plan of Treatment Reminders Order Date Submit Date Provider Last Modified By Organization Details Last Modified Time Details Appointments None recorded. Lab urinalysis, dipstick [address] Infectious Disease -105, [address] [facility] [address], [place], [address], 14:18:52 CBC w/ diff 2024 025 [facility] (Registration ), [address] [facility], [place], [address], 16:11:55 CMP, serum or plasma 2024 025 [facility] (Registration ), [address] [facility], [place], [address], 5 15:39:03 ESR (erythrocyt e sedimentati on rate), blood [address] (Registration ), [address] [facility], [place], [address], 5 08:54:47 C-reactive protein, quantitativ e, serum or plasma 2024 025 [facility] (Registration ), [address], [place], [address], 08:54:48 culture, urine 2024 025 [facility], [address], [address], [place], [address], 19:09:52 Referral None recorded. Procedures None recorded. Surgeries None recorded. Imaging None recorded. Medication Orders None recorded. Patient TargetsNo targets recorded. Patient InstructionsNo instructions recorded. Reason for Referral None Reported. Results Created Date Observation Date Name Description Value Unit Range Abnormal Flag Note LastModifiedBy Organization Detail LastModifiedTime 02/24/2002/23/2025 urina lysis , dipst ick Leukocytes (reference range) trace Not Available [facility] Infectious Disease -[facility] [address] [facility] [address], [place], [address], 02/23/2025 14:16:48 02/24/20 25 02/23/2025 urina lysis , dipst ick Nitrite (reference range:) negati ve Not Available [facility] Infectious Disease -[facility] [address], [place], [address], 02/23/2025 14:16:48 02/24/20 25 02/23/2025 urina lysis , dipst ick Urobilinogen (reference range) 0.2 Not Available [facility] Infectious Disease -[facility] [address], [place], [address], 02/23/2025 14:16:48 02/24/20 25 02/23/2025 urina lysis , dipst ick Protein (reference range) negati ve Not Available [facility] Infectious Disease -[facility] [address] [facility] [address], [place], [address], 02/23/2025 14:16:48 02/24/20 25 02/23/2025 urina lysis , dipst ick pH (reference range 5-8.5) 6.0 Not Available [place] [address] [address] [facility] [address], [place], [address], 02/23/2025 14:16:48 02/24/20 25 02/23/2025 urina lysis , dipst ick Blood (reference range:) small Not Available [place] [address] [address] [facility] [address], [place], [address], 02/23/2025 14:16:48 02/24/20 25 02/23/2025 urina lysis , dipst ick Specific Crescent (reference range) 1.015 Not Available [place] [address] [address] [facility] [address], [place], [address], 02/23/2025 14:16:48 02/24/20 25 02/23/2025 urina lysis , dipst ick Ketone (reference range) negati ve Not Available [place] [address] [address] [facility] [address], [place], [address], 02/23/2025 14:16:48 02/24/20 25 02/23/2025 urina lysis , dipst ick Bilirubin (reference range) negati ve Not Available [place] [address] [address] [facility] [address], [place], [address], 02/23/2025 14:16:48 02/24/20 25 02/23/2025 urina lysis , dipst ick Glucose (reference range) 500 Not Available [place] [address] [address] [facility] [address], [place], [address], 02/23/2025 14:16:48 02/24/20 25 02/23/2025 urina lysis , dipst ick Color (reference range: yellow-brown ) Dark Yellow Not Available [facility] Infectious Disease -[address], [place], [address], 02/23/2025 14:16:48 Result Notes None recorded. Problems Name Problem SNOMED Code Status Onset Date Resolution Date Notes Provider Name and Address Organization Details Recorded Time Syncope 126545734 Active 2021 Malina Hernandez DO [address] [facility], [place], [address] , [place] - [facility] - [place] & [place] 15:33:04 Hypersomnia 62332272 Active 2021 Malina Hernandez DO [address] [facility], [place], [address] , [place] - [facility] - [place] & [place] 15:34:08 Problem Notes None recorded. Procedures Surgical History Date Name Laterality Status Provider Name and Address Organization Details Recorded Time 09/25/20 23 Cystoscopy-Female completed Silvio Valdez MD [address] [facility], [place], [address], [place] - [facility] - [place] & [place] 09/25/2023 15:26:11 04/04/20 22 Date of Last Pap Smear completed Vandana Dalla [place] - [facility] - [place] & [place] 10/03/2022 14:31:43 10/28/19 22 Buggy Man Surgery completed Vandana Dalla [place] - [facility] - [place] & [place] 10/03/2022 14:45:45 10/28/19 17 Cholecystectomy completed Vandana Dalla [place] - [facility] - [place] & [place] 10/03/2022 14:32:27 10/28/19 14 Other completed Vandana Dalla [place] - [facility] - [place] & [place] 10/03/2022 14:44:51 cardiac catheterization completed Vandana Dalla [place] - [facility] - [place] & [place] 10/03/2022 14:46:31 strabismus surgery completed Vandana Dalla [place] - [facility] - [place] & [place] 10/03/2022 14:55:15 Imaging Results None recorded. Procedure Notes None recorded. Medical Equipment None Reported. Allergies Allergen ID Allergen Name Allergen Category Reaction Reaction Severity Criticality Documentation Date Start Date Code Code System Note Provider Name and Address Organization Details Recorded Time 36448 aspirin medicatio n chest pain wheezing moderate severe Not available 10/02/2022 1191 RxNorm Vandaan catherine, [facility] & [place] 2 09:22:42 60878 Bactrim medicatio n arthralgi a (joint pain) muscle cramps severe severe Not available 10/02/2022 71443 9 RxNorm Vandana catherine, RAFITA DAR[facility] & [place] 2 09:22:49 79856 insect venom environme nt confusion cough dizziness fever flushing headache wheezing moderate moderate moderate mild moderate moderate moderate Not available 10/02/2022 43568 UNK Vandana catherine, RAFITA She[facility] & [place] 2 09:23:13 66267 Pneumococ georges vaccine Not available anaphylax is chest pain facial swelling nausea rash wheezing moderate moderate moderate moderate moderate moderate Not available 10/02/2022 06493 7 RxNorm Vandana catherine, RAFITA DARLING [facility] & [place] 2 09:23:25 35641 rosuvasta tin medicatio n eye swelling facial swelling respirato ry distress moderate moderate moderate Not available 10/02/2022 47707 2 RxNorm Vandana catherine, RAFITA DARLING [facility] & [place] 2 09:23:35 Medications Name Sig Start Date [...] % 80 /min 98.6 [degF] 49.6 kg/m2 752191. 86 g 116 mm[Hg] 100 mm[Hg] Bianca Smith [place] - [facility] - [place] & [place] 5 13:59:18 Social History Question Answer Notes LastModified by [employer] Details LastModified Time Tobacco Smoking Status Never Smoker Vandana Harris [place], [place] - [facility] - [place] & [place] 10/03/2022 14:32:09 Do You Have An Advance [...] Are You Currently In School? No MASTERS [email or web address] Information not available 09/25/2023 Sex: Female Functional Status Question Answer Note LastModified by [employer] Details LastModified Time Do you use any illicit or recreational drugs? No Information not available 10/03/2022 What is your level of alcohol consumption? 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 Occasional Information not available 10/03/2022 Mental Status Question Answer Note LastModified by Organization D etails LastModified Time Do you feel stressed (tense, restless, nervous, or anxious, or unable to sleep at night)? [id number] Information not available 10/03/2022 Family History Relationship [...] Response Kidney Stones Y GI Problems Y COPD Y Lung Disease Y Pneumonia Y Anemia Y Spine Problems [...] SNOMED-CT Code Diagnosis ICD10 Code Diagnosis Note [id number] Marilou Herbert in, DARK ROOM ATTENDANT [facility] Infectiou s Disease -[address] [place] [address] 02/23/2025 13:48:33 02/23/2025 14:17:11 Recurrent urinary tract infection 188780713 N39.0 Will check lab work. Will send urine off for a culture. Will see patient back in 1 week. Health Concerns Section Related Observation LastModified by Organization Detai ls LastModified Time None Recorded Concern Status LastModified by Organization Details LastModified Time None Recorded Payers Encounter Date Sequence Insurance Name Policy Number Policy Valdivia Covered Member ID Valdivia Member ID Guarantor Name 02/23/2025 1 [facility] (MEDICAID HMO) Lissystas Valdez [id number] Lissy Valdez Notes Date Note Type Note [...] April 2025. Marilou David, PREETI [address] , [place], [address], [facility] - [place] & [place] 02/24/2025 10:59:38 OBGyn Episode No OBEpisode recorded.
--- OUTSIDE RECORDS SUMMARY | 2025-03-27 12:15 | XMS_ITS | Data Portability ---
Author Organization [facility] [place] [facility] [place] Alejandro ADMIN Address [address] [place] [address] Care Team Providers Care Electric Detector Operator Name Role Phone ZAHRAA BENAVIDES Primary Care Provider Assessment Encounter Date Assessment Date Assessment LastModified by Organization Details LastModified Time 08/07/2023 08/07/[address] scan images onto our system. Will review to determine the degree of stone burden bilaterally in the kidneys. Will also plan cystoscopy and pelvic exam in the office in the near future. [email or web address] Not available 08/07/2023 15:34:46 09/25/2023 09/25/2023 I [...] None recorded. Lab urinalysis, dipstick 2024 025 [email or web address] [facility] Infect[facility] -105, [address], [place], [address], 5 14:18:52 CBC w/ diff 2024 025 [facility] (Registration ), [address], [place], [address], 5 16:11:55 CMP, serum or plasma 2024 025 [facility] (Registration ), [address], [place], [address], 5 15:39:03 ESR (erythrocyt e sedimentati on rate), blood [address] (Registration ), [address] [facility], [place], [address], 5 08:54:47 C-reactive protein, quantitativ e, serum or plasma [address] (Registration ), [address], [place], [address], 5 08:54:48 culture, urine 2024 025 [facility], [address], [address], [place], [address], 5 19:09:52 urinalysis, dipstick 2022 023 [email or web address] [facility], [address] [facility], [address], [place], [address], 3 16:08:29 Referral None recorded. Procedures None [...] usal 7.7 - 58.5 Perfo rmed at: [facility] [address] [place] [address] 1269 Lab Direc tor: Los carson PhD, Phone : [phone] Not Available [facility] ([facility]) [address] [facility], [place], [address], 04/03/2023 10:13:10 04/02/20 23 04/03/2023 FSH FSH, serum 5.4 mIU/m L Adult Femal e: Folli cular phase 3.5 - 12.5 Ovula tion phase 4.7 - 21.5 Lutea l phase 1.7 - 7.7 Postm enopa usal 25.8 - 134.8 Perfo rmed at: [facility] [address] [place] [address] 1264 Lab Direc tor: Los carson PhD, Phone : [phone] Not Available [facility] ([facility]) [address] [facility], [place], [address], 04/03/2023 10:14:16 08/07/20 23 08/07/2023 urina lysis , dipst ick Leukocytes (reference range) trace Not Available [facility] [address] [facility] [address] [place] [address], [address], 08/07/2023 15:15:15 08/07/2008/07/2023 urina lysis , dipst ick Nitrite (reference range:) negati ve Not Available [facility] [address] [facility] [address], [place], [address], 08/07/2023 15:15:15 08/07/20 23 08/07/2023 urina lysis , dipst ick Urobilinogen (reference range) 0.2 Not Available [facility] [address] [place] [address] [address], [place], [address], 08/07/2023 15:15:15 08/07/2008/07/2023 urina lysis , dipst ick Protein (reference range) negati ve Not Available [facility] [address], [place], [address], 08/07/2023 15:15:15 08/07/2008/07/2023 urina lysis , dipst ick pH (reference range 5-8.5) 6.0 Not Available [facility] [place] [address], [place], [address], 08/07/2023 15:15:15 08/07/2008/07/2023 urina lysis , dipst ick Blood (reference range:) small Not Available [facility] [address] [place] [address] [address], [place], [address], 08/07/2023 15:15:15 08/07/2008/07/2023 urina lysis , dipst ick Specific Sanborn (reference range) 1.015 Not Available [facility] [address], [place], [address], 08/07/2023 15:15:15 08/07/2008/07/2023 urina lysis , dipst ick Ketone (reference range) negati ve Not Available [address], [place], [address], 08/07/2023 15:15:15 08/07/2008/07/2023 urina lysis , dipst ick Bilirubin (reference range) negati ve Not Available [address], [place], [address], 08/07/2023 15:15:15 08/07/20 23 08/07/2023 urina lysis , dipst ick Glucose (reference range) 250 Not Available [facility] [address] [facility] [address], [place], [address], 08/07/2023 15:15:15 08/07/20 23 08/07/2023 urina lysis , dipst ick Color (reference range: yellow-brown ) Yellow Not Available [facility] [address] [facility] [address], [place], [address], 08/07/2023 15:15:15 02/24/20 25 02/23/2025 CBC AUTO W DIFF WBC 11.3 K/uL 4.0-10 .5 high Not Available [facility] ([facility]) [address] [facility], [place], [address], 02/23/2025 15:02:28 02/24/20 25 02/23/2025 CBC AUTO W DIFF RBC 5.7 M/mm3 4.2-6. 4 Not Available [facility] ([facility]) [address], [place], [address], 02/23/2025 15:02:28 02/24/20 25 02/23/2025 CBC AUTO W DIFF HGB 15.8 gm/dL 12.5-1 6.0 Not Available [facility] ([facility]) [address] [facility], [place], [address], 02/23/2025 15:02:28 02/24/20 25 02/23/2025 CBC AUTO W DIFF HCT 48.8 % 37.0-4 7.0 high Not Available [facility] ([facility]) [address], [place], [address], 02/23/2025 15:02:28 02/24/20 25 02/23/2025 CBC AUTO W DIFF MCV 86.4 fL 78-100 Not Available [facility] ([facility]) [address], [place], [address], 02/23/2025 15:02:28 02/24/20 25 02/23/2025 CBC AUTO W DIFF MCH 28.0 pg 27-31 Not Available [facility] ([facility]) [address], [place], [address], 02/23/2025 15:02:28 02/24/20 25 02/23/2025 CBC AUTO W DIFF MCHC 32.4 g/dL 32-36 Not Available [facility] ([facility]) [address], [place], [address], 02/23/2025 15:02:28 02/24/20 25 02/23/2025 CBC AUTO W DIFF RDW 13.7 % 11.5-1 4.0 Not Available [facility] ([facility]) [address], [place], [address], 02/23/2025 15:02:28 02/24/20 25 02/23/2025 CBC AUTO W DIFF platelet count 380 K/uL 150-45 0 Not Available [facility] ([facility]) [address], [place], [address], 02/23/2025 15:02:28 02/24/20 25 02/23/2025 CBC AUTO W DIFF MPV 10.3 fL 6-9.5 high Not Available [facility] ([facility]) [address], [place], [address], 02/23/2025 15:02:28 02/24/20 25 02/23/2025 CBC AUTO W DIFF neutrophil% 66.5 % 43-65 high Not Available [facility] ([facility]) [address], [place], [address], 02/23/2025 15:02:28 02/24/20 25 02/23/2025 CBC AUTO W DIFF lymphocyte% 24.3 % 20.5-4 5.5 Not Available [facility] ([facility]) [address], [place], [address], 02/23/2025 15:02:28 02/24/20 25 02/23/2025 CBC AUTO W DIFF monocyte% 6.0 % 5.5-11 .7 Not Available [facility] ([facility]) [address], [place], [address], 02/23/2025 15:02:02/24/20 25 02/23/2025 CBC AUTO W DIFF eosinophil% 2.3 % 0.9-2. 9 Not Available [facility] ([facility]) [address] [facility], [place], [address], 02/23/2025 15:02:28 02/24/20 25 02/23/2025 CBC AUTO W DIFF basophil% 0.6 % 0.2-1. 0 Not Available [facility] ([facility]) [address] [place], [address], 02/23/2025 15:02:28 02/24/20 25 02/23/2025 CBC AUTO W DIFF immature granulocytes % 0.3 % 0.0-0. 8 Not Available [facility] ([facility]) [address] [place], [address], 02/23/2025 15:02:28 02/24/20 25 02/23/2025 CBC AUTO W DIFF nucleated red blood cells % 0.0 % Not Available [facility] ([facility]) [address] [place], [address], 02/23/2025 15:02:28 02/24/20 25 02/23/2025 CBC AUTO W DIFF neutrophil# 7.5 K/uL 2.2-4. 8 high Not Available [facility] ([facility]) [address] [facility], [place], [address], 02/23/2025 15:02:28 02/24/20 25 02/23/2025 CBC AUTO W DIFF lymphocyte# 2.7 cell/ mcL 1.3-2. 9 Not Available [facility] ([facility]) [address], [place], [address], 02/23/2025 15:02:28 02/24/20 25 02/23/2025 CBC AUTO W DIFF monocyte# 0.7 cell/ mcL 0.3-0. 8 Not Available [facility] ([facility]) [address] [facility], [place], [address], 02/23/2025 15:02:28 02/24/20 25 02/23/2025 CBC AUTO W DIFF eosinophil# 0.3 cell/ mcL 0-0.2 high Not Available [facility] ([facility]) [address] [facility], [place], [address], 02/23/2025 15:02:28 02/24/20 25 02/23/2025 CBC AUTO W DIFF basophil# 0.1 cell/ mcL 0.0-1. 0 Not Available [facility] ([facility]) [address] [facility], [place], [address], 02/23/2025 15:02:28 02/24/20 25 02/23/2025 CBC AUTO W DIFF immature gramulocytes # 0.03 K/uL Not Available [facility] ([facility]) [address] [facility], [place], [address], 02/23/2025 15:02:28 02/24/20 25 02/23/2025 CBC AUTO W DIFF nucleated red blood cells # 0.00 K/uL Not Available [facility] ([facility]) [address] [facility], [place], [address], 02/23/2025 15:02:28 04/29/02/23/2025 CBC AUTO W DIFF manual differential NO Not Available [facility] ([facility]) [address], [place], [address], 02/23/2025 15:02:28 02/24/20 25 02/23/2025 COMP METAB OLIC PANEL sodium 138 mmol/ L 136-14 5 Not Available [facility] ([facility]) [address], [place], [address], 02/23/2025 15:39:03 02/24/20 25 02/23/2025 COMP METAB OLIC PANEL potassium 3.7 mmol/ L 3.6-5. 0 Not Available [facility] ([facility]) [address] , [place], [address], 02/23/2025 15:39:03 02/24/20 25 02/23/2025 COMP METAB OLIC PANEL chloride 98 mmol/ L 98-107 Not Available [facility] ([facility]) [address] , [place], [address], 02/23/2025 15:39:03 02/24/20 25 02/23/2025 COMP METAB OLIC PANEL carbon dioxide 26.8 mmol/ L 21.0-3 2.0 Not Available [facility] ([facility]) [address] , [place], [address], 02/23/2025 15:39:03 02/24/20 25 02/23/2025 COMP METAB OLIC PANEL anion gap 16.9 Not Available [facility] ([facility]) [address] [place], [address], 02/23/2025 15:39:03 02/24/20 25 02/23/2025 COMP METAB OLIC PANEL glucose 200 mg/dL 70-120 high Not Available [facility] ([facility]) [address], [place], [address], 02/23/2025 15:39:03 02/24/20 25 02/23/2025 COMP METAB OLIC PANEL BUN 12 mg/dL 7-18 Not Available [facility] ([facility]) [address], [place], [address], 02/23/2025 15:39:03 02/24/20 25 02/23/2025 COMP METAB OLIC PANEL creatinine 1.1 mg/dL 0.6-1. 3 Not Available [facility] ([facility]) [address], [place], [address], 02/23/2025 15:39:03 02/24/20 25 02/23/2025 COMP METAB [...] brown ing kiney funct ion. Not Available [facility] ([facility]) [address] , [place], [address], 02/23/2025 15:39:03 02/24/20 25 02/23/2025 COMP METAB OLIC PANEL osmolality (calculated) 293 mOsm/ kg 275-30 1 OSMOL ALITY IS A CALCU LATIO N UTILI ZING THE SERUM /PLAS MA SODIU M, GLUCO SE AND UREA NITRO GEN (BUN) LEVEL S. FOR THE MOST ACCUR ATE RESUL T A MEASU RED SERUM OSMOL ALITY IS SUGGE STED. Not Available [facility] ([facility]) [address], [place], [address], 02/23/2025 15:39:03 02/24/20 25 02/23/2025 COMP METAB OLIC PANEL total protein 8.1 g/dL 6.4-8. 2 Not Available [facility] ([facility]) [address] , [place], [address], 02/23/2025 15:39:03 02/24/20 25 02/23/2025 COMP METAB OLIC PANEL albumin 3.6 g/dL 3.4-5. 0 Not Available [facility] ([facility]) [address] , [place], [address], 02/23/2025 15:39:03 02/24/20 25 02/23/2025 COMP METAB OLIC PANEL globulin 4.5 Not Available [facility] ([facility]) [address], [place], [address], 02/23/2025 15:39:03 02/24/20 25 02/23/2025 COMP METAB OLIC PANEL alb/glob ratio 0.8 0.7-2 Not Available [facility] ([facility]) [address], [place], [address], 02/23/2025 15:39:03 02/24/20 25 02/23/2025 COMP METAB OLIC PANEL calcium 10.2 mg/dL 8.5-10 .5 Not Available [facility] ([facility]) [address], [place], [address], 02/23/2025 15:39:03 02/24/20 25 02/23/2025 COMP METAB OLIC PANEL bilirubin total 0.60 mg/dL 0.10-1 .00 Not Available [facility] ([facility]) [address] [place], [address], 02/23/2025 15:39:03 02/24/20 25 02/23/2025 COMP METAB OLIC PANEL AST (SGOT) 46 U/L 0-37 high Not Available [facility] ([facility]) [address], [place], [address], 02/23/2025 15:39:03 02/24/20 25 02/23/2025 COMP METAB OLIC PANEL ALT (SGPT) 78 U/L 0-65 high Not Available [facility] ([facility]) [address], [place], [address], 02/23/2025 15:39:03 02/24/20 25 02/23/2025 COMP METAB OLIC PANEL alk phosphatase 111 U/L 46-116 Not Available [facility] ([facility]) [address] [facility], [place], [address], 02/23/2025 15:39:03 02/24/20 25 02/23/2025 C-KARLI CTIVE PROTE IN (CRP) C-reactive protein, quant 2.0 mg/dL 0.05-0 .300 high Not Available [facility] ([facility]) [address] [facility], [place], [address], 02/23/2025 15:40:11 02/24/20 25 02/23/2025 SED RATE sed rate auto 9 0-20 Not Available [facility] ([facility]) [address] [facility], [place], [address], 02/23/2025 15:43:35 02/24/20 25 02/27/2025 URINE CULTU RE,CO MPREH ENSIV E urine culture,comp rehensive FINAL REPORT abnormal Not Available [facility] ([facility]) [address] [facility], [place], [address], 02/27/2025 19:09:52 02/24/20 25 02/27/2025 URINE CULTU [...] ng units per mL Not Available [facility] ([facility]) [address] [facility], [place], [address], 02/27/2025 19:09:52 02/24/2002/27/2025 URINE CULTU RE,CO MPREH [...] e Not Available [facility] ([facility]) [address] [facility], [place], [address], 02/27/2025 19:09:52 02/24/2002/27/2025 URINE CULTU RE,CO MPREH [...] Vanco mycin R S Not Available [facility] ([facility]) [address] [facility], [place], [address], 02/27/2025 19:09:52 02/24/20 25 02/23/2025 urina lysis , dipst ick Leukocytes (reference range) trace Not Available [place] [address] [address], [place], [address], 02/23/2025 14:16:48 02/24/20 25 02/23/2025 urina lysis , dipst ick Nitrite (reference range:) negati ve Not Available [place] [address] [address] [facility] [address], [place], [address], 02/23/2025 14:16:48 02/24/20 25 02/23/2025 urina lysis , dipst ick Urobilinogen (reference range) 0.2 Not Available [place] [address] [address] [facility] [address], [place], [address], 02/23/2025 14:16:48 02/24/20 25 02/23/2025 urina lysis , dipst ick Protein (reference range) negati ve Not Available [place] [address] [address] [facility] [address], [place], [address], 02/23/2025 14:16:48 02/24/20 25 02/23/2025 urina lysis , dipst ick pH (reference range 5-8.5) 6.0 Not Available [place] [address] [address] [facility] [address], [place], [address], 02/23/2025 14:16:48 02/24/20 25 02/23/2025 urina lysis , dipst ick Blood (reference range:) small Not Available [place] [address] [address] [facility] [address], [place], [address], 02/23/2025 14:16:48 02/24/20 25 02/23/2025 urina lysis , dipst ick Specific Sanborn (reference range) 1.015 Not Available [place] [address] [address] [facility] [address], [place], [address], 02/23/2025 14:16:48 02/24/20 25 02/23/2025 urina lysis , dipst ick Ketone (reference range) negati ve Not Available [place] [address] [address] [facility] [address], [place], [address], 02/23/2025 14:16:48 02/24/20 25 02/23/2025 urina lysis , dipst ick Bilirubin (reference range) negati ve Not Available [place] [address] [address] [facility] [address], [place], [address], 02/23/2025 14:16:48 02/24/20 25 02/23/2025 urina lysis , dipst ick Glucose (reference range) 500 Not Available [place] [address] [address] [facility] [address], [place], [address], 02/23/2025 14:16:48 02/24/20 25 02/23/2025 urina lysis , dipst ick Color (reference range: yellow-brown ) Dark Yellow Not Available [place] [address] [address] [facility] [address], [place], [address], 02/23/2025 14:16:48 Result Notes None recorded. Problems Name Problem SNOMED Code Status Onset Date Resolution Date Notes Provider Name and Address Organization Details Recorded Time Syncope 137263857 Active 2021 Malina Hernandez DO [address], [place], [address] , [facility] - [facility] [place] [facility] [place] 15:33:04 Hypersomnia 51688591 Active 2021 Malina Hernandez DO [address] [facility], [place], [address] , [place] - [facility] & [place] 15:34:08 Problem Notes None recorded. Procedures Surgical History Date Name Laterality Status Provider Name and Address Organization Details Recorded Time 09/25/20 23 Cystoscopy-Female completed Silvio Valdez MD [address] [facility], [place], [address], [place] - [facility] [place] [facility] [place] 09/25/2023 15:26:11 04/04/20 22 Date of Last Pap Smear completed Vandana Eugenioa [place] - [facility] [place] 10/03/2022 14:31:43 10/28/19 22 Marketing Database Consultant Surgery completed Vandana Dalla [place] - [facility] [place] 10/03/2022 14:45:45 10/28/19 17 Cholecystectomy completed Vandana Dalla [place] - [facility] & [place] 10/03/2022 14:32:27 10/28/19 14 Other completed Vandana Dalla [place] - [facility] [place] 10/03/2022 14:44:51 cardiac catheterization completed Vandana Dalla [place] - [facility] & [place] 10/03/2022 14:46:31 strabismus surgery completed Vandana Dalla [place] - [facility] [place] [facility] [place] 10/03/2022 14:55:15 Imaging Results None recorded. Procedure Notes None recorded. Medical Equipment None Reported. Allergies Allergen ID Allergen Name Allergen Category Reaction Reaction Severity Criticality Documentation Date Start Date Code Code System Note Provider Name and Address Organization Details Recorded Time 31174 aspirin medicatio n chest pain wheezing moderate severe Not available 10/02/2022 1191 RxNorm Vandana Eugenioa null, [place] - [facility] & [place] 09:22:42 18436 Bactrim medicatio n arthralgi a (joint pain) muscle cramps severe severe Not available 10/02/2022 34212 9 RxNorm Vandana Eugenioa null, [place] - [facility] & [place] 09:22:49 51109 insect venom environme nt confusion cough dizziness fever flushing headache wheezing moderate moderate moderate mild moderate moderate moderate Not available 10/02/2022 85482 UNK Vandana catherine, [facility] - [facility] & [place] 2 09:23:13 33879 Pneumococ georges vaccine Not available anaphylax is chest pain facial swelling nausea rash wheezing moderate moderate moderate moderate moderate moderate Not available 10/02/2022 75888 7 RxNorm Vandana catherine, [facility] [place] [facility] & [place] 2 09:23:25 27198 rosuvasta tin medicatio n eye swelling facial swelling respirato ry distress moderate moderate moderate Not available 10/02/2022 74048 2 RxNorm Vandana catherine, [facility] - [facility] & [place] 2 09:23:35 Medications Name [...] % 80 /min 98.6 [degF] 49.6 kg/m2 911859. 86 g 116 mm[Hg] 100 mm[Hg] Bianca Smith [place] - [facility] 5 13:59:18 Date Recorded Body height Heart rate Oxygen saturation Oxygen saturation in Arterial blood by Pulse oximetry Heart rate Body temperature Body mass index (BMI) Body weight Systolic blood pressure Diastolic blood pressure Provider Name and Address Organization Details Last Updated DateTime 5 160.02 cm 60 /min 97 % 97 % 60 /min 97.7 [degF] 49.6 kg/m2 995183. 86 g 119 mm[Hg] 79 mm[Hg] Bianca ELL[place] - [facility] 5 13:31:54 Date Recorded Body height Body temperature Oxygen saturation Oxygen saturation in Arterial blood by Pulse oximetry Inhaled oxygen flow rate Heart rate Body mass index (BMI) Body weight Systolic blood pressure Diastolic blood pressure Provider Name and Address Organization Details Last Updated DateTime 3 157.48 cm 97.1 [degF] 98 % 98 % 2 L/min 89 /min 48.3 kg/m2 384215. 39 g 128 mm[Hg] 98 mm[Hg] Phillip Morrison [facility] & [place] 3 13:04:48 Date Recorded Body height Body mass index (BMI) Body weight Systolic blood pressure Diastolic blood pressure Provider Name and Address Organization Details Last Updated DateTime 08/07/2023 157.48 cm 49.4 kg/m2 402970.9 4 g 125 mm[Hg] 75 mm[Hg] Britney Yee [facility] & [place] 3 15:05:24 Date Recorded Body height Body mass index (BMI) Body weight Systolic blood pressure Diastolic blood pressure Provider Name and Address Organization Details Last Updated DateTime 09/25/2023 157.48 cm 51.2 kg/m2 117747.8 6 g 126 mm[Hg] 76 mm[Hg] Ioana Ayala [facility] & [place] 3 15:07:04 Social History Question Answer Notes LastModified by Yu Rongat ion Details LastModified Time Tobacco Smoking Status Never Smoker [facility] [place] 10/03/2022 14:32:09 Do You Have An Advance Directive? No Information not available 10/03/2022 Are You Blind Or Do You Have Difficulty Seeing? No Information not available 10/03/2022 What Was The Date Of Your Most Recent Tobacco Screening? 09/17/2022 Information not available 10/03/2022 Do You Have Any Pets? Yes [email or web address] Information not available 09/25/2023 Are You Passively Exposed To Smoke? No Information not available 10/03/2022 Are You Currently In School? No [employer] [email or web address] Information not available 09/25/2023 Sex: Female Functional [...] anxious, or unable to sleep at night)? [id number] Information not available 10/03/2022 Family History Relationship [...] SNOMED-CT Code Diagnosis ICD10 Code Diagnosis Note [id number] [facility] [address] [facility],[address] [place] [address] 10/03/2022 14:07:23 10/03/2022 15:38:25 Syncope 162718705 R55 She has been experienci ng these stereotypi georges passing out episodes for five years. No definite witnessed convulsion s but some associated brief confusion afterwards .will order EEG to rule out neurologic causes of syncope Hypersomnia 88779490 G47 .10 She describes some significan t episodes of pathologic al sleepiness . She will fall asleep without warning in the middle of talking. This is very infrequent but can be suggestive of narcolepsy . Will order PSG with MSLT to evaluate this in more detail. [id number] Micheline Lackey MD [facility] General Surgery [address] [place] [address],[address] [place] [address] 04/02/2023 12:53:55 04/02/2023 13:53:12 Pelvic mass 31615422 R19.00 Possible lymphocele versus ovarian remnant from [...] patient with lab levels and consider further VAUDEVILLE ACTOR follow up. [id number] Silvio Valdez MD [facility] Urology [address] [place] [address],[address] [place] [address] 08/07/2023 14:35:57 08/07/2023 15:40:17 Recurrent urinary tract infection 558640754 N39.0 Kidney stone 16654981 N2 0.0 Chronic th oracic back pain 8233776339 43012 M54.6 Microscopic hematuria 19 8828958 R31.29 [id number] Silvio Valdez MD [facility] Urology [address] [place] [address],[address] [place] [address] 09/25/2023 14:26:57 09/25/2023 15:25:02 Recurrent urinary tract infection 658116088 N39.0 Kidney stone 32809871 N2 0.0 Microscopic hematuria 19 7285711 R31.29 [id number] [facility] [address] [facility] [address] [place] [address] 02/23/2025 13:48:33 02/23/2025 14:17:11 Recurrent urinary tract infection 001911586 N39.0 Will check lab work. Will send urine off for a culture. Will see patient back in 1 week. 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 Patient will follow up in 2 weeks. Call the office if anything persists or worsens. 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 see above Health Concerns Section Related Observation LastModified by Organization Detai ls LastModified Time None Recorded Concern Status LastModified by Organization Details LastModified Time None Recorded Advance Directives Directive N: Payers Insurance Date Sequence Insurance Name Policy Number Policy Valdivia Covered Member ID Valdivia Member ID Guarantor Name 09/18/2023 1 [employer] [facility] (POS II) [facility] [id number] [facility] 02/27/2025 1 [facility] (MEDICAID HMO) [facility] [id number] [facility] Notes Date Note [...] time. Patient states she is seen her account receivable associate for this, was told it is possibly a lymphocele. Micheline Lackey MD [address] [facility], [place], [address], [facility] - [place] & [place] 04/18/2023 12:50:43 08/07/2023 text/html [...] status post hysterectomy. Silvio Valdez MD [address] [facility], [place], [address], [facility] - [facility] - [place] & [place] 08/07/2023 15:35:17 09/25/2023 text/html [...] hysterectomy. Silvio Valdez MD [address], [place], [address], [facility] & [place] 09/25/2023 15:30:10 02/23/2025 text/html patient presents to [...] 2025. Marilou David APRN [address], [place], [address], [facility] & [place] 02/24/2025 10:59:38 03/02/2025 text/html patient presents to clinic for follow up. Urine culture results received. Patient denies any fever. She is scheduled to have surgery to remove her stone on . Marilou David APRN [address], [place], [address], [facility] - [facility] & [place] 03/02/2025 13:35:40 OBGyn Episode No OBEpisode recorded.
--- OUTSIDE RECORDS SUMMARY | 2025-03-27 12:15 | XMS_ITS | Continuity of Care Document ---
Author Organization [facility] [place] Infectious Disease -[address] [place] [address] Care Team Providers Care Park Aide Name Role Phone ZAHRAA BENAVIDES Primary Care Provider [phone] Assessment No assessment recorded. Plan of Treatment [...] and Address Organization Details Recorded Time Syncope 592636037 Active 2021 Malina Hernandez DO [address], [place], [address] , [facility] & [place] 2 15:33:04 Hypersomnia 84566340 Active 2021 Malina Hernandez DO [address], [place], [address] [facility] & [place] 2 15:34:08 Problem Notes None recorded. Procedures Surgical History Date Name Laterality Status Provider Name and Address Organization Details Recorded Time 09/25/20 23 Cystoscopy-Female completed Silvio Valdez MD [address] , [place], [address], [facility] & [place] 09/25/2023 15:26:11 04/04/20 22 Date of Last Pap Smear completed Vandana Harris [facility] & [place] 10/03/2022 14:31:43 10/28/19 22 Welfare Eligibility Worker Surgery completed Vandana ELLER - [facility] - [place] & [place] 10/03/2022 14:45:45 10/28/19 17 Cholecystectomy completed Vandana ELLER - [facility] & [place] 10/03/2022 14:32:27 10/28/19 14 Other completed Vandana ELLER - [facility] & [place] 10/03/2022 14:44:51 cardiac catheterization completed Vandana ELLER - [facility] & [place] 10/03/2022 14:46:31 strabismus surgery completed Vandana ELLER - [facility] & [place] 10/03/2022 14:55:15 Imaging Results None recorded. Procedure Notes None recorded. Medical Equipment None Reported. Allergies Allergen ID Allergen Name Allergen Category Reaction Reaction Severity Criticality Documentation Date Start Date Code Code System Note Provider Name and Address Organization Details Recorded Time 85570 aspirin medicatio n chest pain wheezing moderate severe Not available 10/02/2022 1191 RxNorm Vandana catherine, RAFITA - [facility] & [place] 09:22:42 12225 Bactrim medicatio n arthralgi a (joint pain) muscle cramps severe severe Not available 10/02/2022 05169 9 RxNorm Vandana catherine, RAFITA - [facility] & [place] 09:22:49 19774 insect venom environme nt confusion cough dizziness fever flushing headache wheezing moderate moderate moderate mild moderate moderate moderate Not available 10/02/2022 75560 UNK Vandana catherine, RAFITA - [facility] & [place] 09:23:13 62763 Pneumococ georges vaccine Not available anaphylax is chest pain facial swelling nausea rash wheezing moderate moderate moderate moderate moderate moderate Not available 10/02/2022 91454 7 RxNorm Vandana Steven null, [place] - [facility] & [place] 09:23:25 42860 rosuvasta tin medicatio n eye swelling facial swelling respirato ry distress moderate moderate moderate Not available 10/02/2022 00560 2 RxNorm RAFITA Reed - [facility] - [place] & [place] 2 09:23:35 Medications Name Sig Start Date [...] % 60 /min 97.7 [degF] 49.6 kg/m2 542433. 86 g 119 mm[Hg] 79 mm[Hg] Bianca Smith [facility] & [place] 13:31:54 Social History Question Answer Notes LastModified by Organizat ion Details LastModified Time Tobacco Smoking Status [facility] [place] 10/03/2022 14:32:09 Do You Have An Advance Directive? No Information not available 10/03/2022 Are You Blind Or Do You Have Difficulty Seeing? No Information not available 10/03/2022 What Was The Date Of Your Most Recent Tobacco Screening? 09/17/2022 Information not available 10/03/2022 Do You Have Any Pets? Yes [email or web address] Information not available 09/25/2023 Are You Passively Exposed To Smoke? No Information not available 10/03/2022 Are You Currently In School? No MASTERS [email or web address] Information not available 09/25/2023 Sex: Female Functional Status Question Answer Note LastModified by Organizat ion Details LastModified Time Do you use any illicit or recreational drugs? No Information not available 10/03/2022 What is your level of alcohol consumption? 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 Occasional Information not available 10/03/2022 Mental Status Question Answer Note LastModified by Organization D etails LastModified Time Do you feel stressed (tense, restless, nervous, or anxious, or unable to sleep at night)? [id number] Information not available 10/03/2022 Family History Relationship [...] SNOMED-CT Code Diagnosis ICD10 Code Diagnosis Note [id number] [facility] -[address] [address] 02/23/2025 13:48:33 02/23/2025 14:17:11 Recurrent urinary tract infection 219265060 N39.0 Will check lab work. Will send urine off for a culture. Will see patient back in 1 week. 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 Patient will follow up in 2 weeks. Call the office if anything persists or worsens. 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 Urine culture results received. Patient denies any fever. She is scheduled to have surgery to remove her stone on . Marilou David, STORE COORDINATOR [address], [place], [address], [place] - [facility] - [place] & [place] 03/02/2025 13:35:40 OBGyn Episode No OBEpisode recorded.
[2025-03-27] MEDS: ERTAPENEM SODIUM 1 GM in 0.9 % SODIUM CHLORIDE 50 ML IV (12:30)
== END 2025-03-27 23:59 | disposition home or self-care (01) ==
LOC: INF 12:13
PROVIDERS: PCP Internal Medicine; Visit Provider Internal Medicine
DX: N39.0 Urinary tract infection, site not specified (principal); B96.4 Proteus (mirabilis) (morganii) as the cause of diseases classified elsewhere; Z16.24 Resistance to multiple antibiotics
CPT/HCPCS: 96365; J1335

== ENCOUNTER 2025-03-28 12:19 | Outpatient (CLI) | payer OTHER, SELFPAY ==
--- OUTSIDE RECORDS SUMMARY | 2025-03-28 12:21 | XMS_ITS | Continuity of Care Document ---
Author Organization [facility] Infectious Disease -[address] [place] [address] Care Team Providers Care Corporate Operations Compliance Manager Name Role Phone ZAHRAA BENAVIDES Primary Care [...] and Address Organization Details Recorded Time Syncope 465223605 Active 2021 Malina Hernandez DO [address], [place], [address] , [facility] & [place] 2 15:33:04 Hypersomnia 42016814 Active 2021 Malina Hernandez DO [address], [place], [address] [facility] & [place] 2 15:34:08 Problem Notes None recorded. Procedures Surgical History Date Name Laterality Status Provider Name and Address Organization Details Recorded Time 09/25/20 23 Cystoscopy-Female completed Silvio Valdez MD [address] , [place], [address], [facility] & [place] 09/25/2023 15:26:11 04/04/20 22 Date of Last Pap Smear completed Vandana Harris [facility] & [place] 10/03/2022 14:31:43 10/28/19 22 Sand Slinger Operator Surgery completed Vandana ELLER - [facility] - [place] & [place] 10/03/2022 14:45:45 10/28/19 17 Cholecystectomy completed Vandana ELLER - [facility] & [place] 10/03/2022 14:32:27 10/28/19 14 Other completed Vandana ELLER - [facility] & [place] 10/03/2022 14:44:51 cardiac catheterization completed Vandana ELLER - [facility] & [place] 10/03/2022 14:46:31 strabismus surgery completed Vandana ELLER - [facility] & [place] 10/03/2022 14:55:15 Imaging Results None recorded. Procedure Notes None recorded. Medical Equipment None Reported. Allergies Allergen ID Allergen Name Allergen Category Reaction Reaction Severity Criticality Documentation Date Start Date Code Code System Note Provider Name and Address Organization Details Recorded Time 15222 aspirin medicatio n chest pain wheezing moderate severe Not available 10/02/2022 1191 RxNorm Vandana catherine, RAFITA - [facility] & [place] 09:22:42 45953 Bactrim medicatio n arthralgi a (joint pain) muscle cramps severe severe Not available 10/02/2022 63684 9 RxNorm Vandana catherine, RAFITA - [facility] & [place] 09:22:49 58298 insect venom environme nt confusion cough dizziness fever flushing headache wheezing moderate moderate moderate mild moderate moderate moderate Not available 10/02/2022 90679 UNK Vandana catherine, RAFITA - [facility] & [place] 09:23:13 36445 Pneumococ georges vaccine Not available anaphylax is chest pain facial swelling nausea rash wheezing moderate moderate moderate moderate moderate moderate Not available 10/02/2022 91396 7 RxNorm Vandana Steven null, [place] - [facility] & [place] 09:23:25 93308 rosuvasta tin medicatio n eye swelling facial swelling respirato ry distress moderate moderate moderate Not available 10/02/2022 44958 2 RxNorm RAFITA Reed - [facility] - [place] & [place] 2 09:23:35 Medications Name Sig [...] % 60 /min 97.7 [degF] 49.6 kg/m2 172871. 86 g 119 mm[Hg] 79 mm[Hg] Bianca Smith [facility] & [place] 13:31:54 Social History Question Answer Notes LastModified by Organizat ion Details LastModified Time Tobacco Smoking Status [facility] [place] 10/03/2022 14:32:09 Do You [...] Are You Currently In School? No MASTERS [email or web address] Information not available 09/25/2023 Sex: Female Functional Status Question Answer Note LastModified by Organizat ion Details LastModified Time Do you use any illicit or recreational drugs? No Information not available 10/03/2022 What is your level of alcohol consumption? 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 Occasional Information not available 10/03/2022 Mental Status Question Answer Note LastModified by Organization D etails LastModified Time Do you feel stressed (tense, restless, nervous, or anxious, or unable to sleep at night)? [id number] Information not available 10/03/2022 Family History Relationship [...] SNOMED-CT Code Diagnosis ICD10 Code Diagnosis Note [id number] [facility] -[address] [address] 02/23/2025 13:48:33 02/23/2025 14:17:11 Recurrent urinary tract infection 083561312 N39.0 Will check lab work. Will send urine off for a culture. Will see patient back in 1 week. 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 Patient will follow up in 2 weeks. Call the office if anything persists or worsens. 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 [id number] Z22.322 see above Health Concerns Section Related Observation LastModified by Organization Detai ls LastModified Time None Recorded Concern Status LastModified by Organization Details LastModified Time None Recorded Payers Encounter Date Sequence Insurance Name Policy Number Policy Valdivia Covered Member ID Valdivia Member ID Guarantor Name 03/02/2025 1 [employer] [facility] (MEDICAID HMO) Lissy Valdez [id number] Lissy Valdez Notes Date Note Type Note Provider Name and Address Organization Details Recorded Time 03/02/2025 text/html patient presents to clinic for follow up. Urine culture results received. Patient denies any fever. She is scheduled to have surgery to remove her stone on . Marilou David, ZONING TECHNICIAN [address], [place], [address], [place] - [facility] - [place] & [place] 03/02/2025 13:35:40 OBGyn Episode No OBEpisode recorded.
--- OUTSIDE RECORDS SUMMARY | 2025-03-28 12:21 | XMS_ITS | Continuity of Care Document ---
Author Organization [facility] Infectious Disease -105 Address [address] [place] [address] Care Team Providers Care Production Machine Computer Operator Name Role Phone SHERI BENAVIDESGHT Primary Care Provider [phone] Assessment No assessment recorded. Plan of Treatment Reminders Order Date Submit Date Provider Last Modified By Organization Details Last Modified Time Details Appointments None recorded. Lab urinalysis, dipstick [address] Infectious Disease -105, [address] [facility] [address], [place], [address], 14:18:52 CBC w/ diff 2024 025 [facility] (Registration ), [address] [facility], [place], [address], 16:11:55 CMP, serum or plasma 2024 025 [facility] (Registration ), [address] [facility], [place], [address], 5 15:39:03 ESR (erythrocyt e sedimentati on rate), blood [address] (Registration ), [address] [facility], [place], [address], 5 08:54:47 C-reactive protein, quantitativ e, serum or plasma 2024 025 [email or web address] [facility] (Registration ), [address], [place], [address], 08:54:48 culture, urine 2024 025 [facility], [address], [address], [place], [address], 19:09:52 Referral None recorded. Procedures None recorded. [...] Not Available [facility] Infectious Disease -[facility] [address] [facility] [address], [place], [address], 02/23/2025 14:16:48 02/24/20 25 02/23/2025 urina lysis , dipst ick Nitrite (reference range:) negati ve Not Available [facility] Infectious Disease -[facility] [address], [place], [address], 02/23/2025 14:16:48 02/24/20 25 02/23/2025 urina lysis , dipst ick Urobilinogen (reference range) 0.2 Not Available [facility] Infectious Disease -[facility] [address], [place], [address], 02/23/2025 14:16:48 02/24/20 25 02/23/2025 urina lysis , dipst ick Protein (reference range) negati ve Not Available [facility] Infectious Disease -[facility] [address] [facility] [address], [place], [address], 02/23/2025 14:16:48 02/24/20 25 02/23/2025 urina lysis , dipst ick pH (reference range 5-8.5) 6.0 Not Available [place] [address] [address] [facility] [address], [place], [address], 02/23/2025 14:16:48 02/24/20 25 02/23/2025 urina lysis , dipst ick Blood (reference range:) small Not Available [place] [address] [address] [facility] [address], [place], [address], 02/23/2025 14:16:48 02/24/20 25 02/23/2025 urina lysis , dipst ick Specific Bowie (reference range) 1.015 Not Available [place] [address] [address] [facility] [address], [place], [address], 02/23/2025 14:16:48 02/24/20 25 02/23/2025 urina lysis , dipst ick Ketone (reference range) negati ve Not Available [place] [address] [address] [facility] [address], [place], [address], 02/23/2025 14:16:48 02/24/20 25 02/23/2025 urina lysis , dipst ick Bilirubin (reference range) negati ve Not Available [place] [address] [address] [facility] [address], [place], [address], 02/23/2025 14:16:48 02/24/20 25 02/23/2025 urina lysis , dipst ick Glucose (reference range) 500 Not Available [place] [address] [address] [facility] [address], [place], [address], 02/23/2025 14:16:48 02/24/20 25 02/23/2025 urina lysis , dipst ick Color (reference range: yellow-brown ) Dark Yellow Not Available [facility] Infectious Disease -[address], [place], [address], 02/23/2025 14:16:48 Result Notes None recorded. Problems Name Problem SNOMED Code Status Onset Date Resolution Date Notes Provider Name and Address Organization Details Recorded Time Syncope 169895199 Active 2021 Malina Hernandez DO [address] [facility], [place], [address] , [place] - [facility] - [place] & [place] 15:33:04 Hypersomnia 35810845 Active 2021 Malina Hernandez DO [address] [facility], [place], [address] , [place] - [facility] - [place] & [place] 15:34:08 Problem Notes None recorded. Procedures Surgical History Date Name Laterality Status Provider Name and Address Organization Details Recorded Time 09/25/20 23 Cystoscopy-Female completed Silvio Valdez MD [address] [facility], [place], [address], [place] [facility] [place] & [place] 09/25/2023 15:26:11 04/04/20 22 Date of Last Pap Smear completed Vandana Dalla [place] [facility] [place] & [place] 10/03/2022 14:31:43 10/28/19 22 Painter And Decorator Surgery completed Vandana Dalla [place] [facility] [place] & [place] 10/03/2022 14:45:45 10/28/19 17 Cholecystectomy completed Vandana Dalla [place] [facility] [place] & [place] 10/03/2022 14:32:27 10/28/19 14 Other completed Vandana Dalla [place] [facility] [place] 10/03/2022 14:44:51 cardiac catheterization completed Vandana Dalla [place] [facility] [place] 10/03/2022 14:46:31 strabismus surgery completed Vandana Dalla [place] [facility] [place] & [place] 10/03/2022 14:55:15 Imaging Results None recorded. Procedure Notes None recorded. Medical Equipment None Reported. Allergies Allergen ID Allergen Name Allergen Category Reaction Reaction Severity Criticality Documentation Date Start Date Code Code System Note Provider Name and Address Organization Details Recorded Time 21748 aspirin medicatio n chest pain wheezing moderate severe Not available 10/02/2022 1191 RxNorm Vandana catherine, [facility] & [place] 2 09:22:42 86775 Bactrim medicatio n arthralgi a (joint pain) muscle cramps severe severe Not available 10/02/2022 05409 9 RxNorm Vandana catherine, RAFITA DARLING [facility] & [place] 2 09:22:49 88458 insect venom environme nt confusion cough dizziness fever flushing headache wheezing moderate moderate moderate mild moderate moderate moderate Not available 10/02/2022 50962 UNK Vandana catherine, RAFITA Shea [facility] & [place] 2 09:23:13 66943 Pneumococ georges vaccine Not available anaphylax is chest pain facial swelling nausea rash wheezing moderate moderate moderate moderate moderate moderate Not available 10/02/2022 02820 7 RxNorm Vandana catherine, RAFITA DARLING [facility] & [place] 2 09:23:25 87796 rosuvasta tin medicatio n eye swelling facial swelling respirato ry distress moderate moderate moderate Not available 10/02/2022 20235 2 RxNorm Vandana catherine, RAFITA DARLING [facility] & [place] 2 09:23:35 Medications Name Sig Start Date [...] % 80 /min 98.6 [degF] 49.6 kg/m2 760875. 86 g 116 mm[Hg] 100 mm[Hg] Bianca Smith [place] - [facility] - [place] & [place] 5 13:59:18 Social History Question Answer Notes LastModified by [employer] Details LastModified Time Tobacco Smoking Status Never Smoker Vandana Harris [place], [place] - [facility] - [place] & [place] 10/03/2022 14:32:09 Do You Have An Advance Directive? No Information not available 10/03/2022 Are You Blind Or Do You Have Difficulty Seeing? No Information not available 10/03/2022 What Was The Date Of Your Most Recent Tobacco Screening? 09/17/2022 Information not available 10/03/2022 Do You Have Any Pets? Yes [email or web address] Information not available 09/25/2023 Are You Passively Exposed To Smoke? No Information not available 10/03/2022 Are You Currently In School? No MASTERS [email or web address] Information not available 09/25/2023 Sex: Female Functional Status Question Answer Note LastModified by [employer] Details LastModified Time Do you use any illicit or recreational drugs? No Information not available 10/03/2022 What is your level of alcohol consumption? 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 Occasional Information not available 10/03/2022 Mental Status Question Answer Note LastModified by Organization D etails LastModified Time Do you feel stressed (tense, restless, nervous, or anxious, or unable to sleep at night)? [id number] Information not available 10/03/2022 Family History Relationship [...] SNOMED-CT Code Diagnosis ICD10 Code Diagnosis Note [id number] Marilou Herbert in, QUALITY REVIEW TRAINER [facility] Infectiou s Disease -[address] [place] [address] 02/23/2025 13:48:33 02/23/2025 14:17:11 Recurrent urinary tract infection 100527387 N39.0 Will check lab work. Will send urine off for a culture. Will see patient back in 1 week. Health Concerns Section Related Observation LastModified by Organization Detai ls LastModified Time None Recorded Concern Status LastModified by Organization Details LastModified Time None Recorded Payers Encounter Date Sequence Insurance Name Policy Number Policy Valdivia Covered Member ID Valdivia Member ID Guarantor Name 02/23/2025 1 [facility] (MEDICAID HMO) Lissystas Valdez [id number] Lissy Valdez Notes Date Note Type Note [...] 2025. Marilou David, PREETI [address], [place], [address], [facility] - [place] & [place] 02/24/2025 10:59:38 OBGyn Episode No OBEpisode recorded.
--- OUTSIDE RECORDS SUMMARY | 2025-03-28 12:21 | XMS_ITS | Data Portability ---
Author Organization [facility] Mahamed morgan, [employer] Address [address] [facility] [address] [place] [address] Assessment No assessment recorded. Plan of Treatment Reminders Order Date Submit Date Provider Last Modified By Organization Details Last Modified Time Details Appointments None recorded. Lab None recorded. Referral aquatic therapy referral 2017 018 [email or web address] 2 Not available 8 11:14:18 cognitive behavioral therapy referral 2017 018 [email or web address] 2 [facility], [address], [address], [place], [address], 8 11:14:19 occupationa l therapist referral 2017 018 [email or web address] 2 Not available 8 11:14:17 Procedures None recorded. Surgeries None recorded. Imaging None recorded. Medication Orders None recorded. Patient TargetsNo targets recorded. Patient Instructions Encounter Date Encounter Id Patient Instructions Last Modified By Organization Details Last Modified Time 08/13/2018 [id number] learning about healthy weight Not available 08/13/2018 [...] Name and Address Organization Details Recorded Time 876244 aspirin medicatio n Not available Not available Not available 08/13/2018 1191 RxNorm Melinda Hudson [facility] 8 10:01:54 Medications Name Sig Start [...] Address Organization Details Last Updated DateTime 8 565722. 12 g 48.2 kg/m2 160.02 cm 18 /min 61 /min 132 mm[Hg] 96 mm[Hg] Melinda Hudson [facility] 8 10:06:40 Social History Question Answer Notes LastModified by Organizat ion Details LastModified Time Tobacco Smoking Status Never Smoker Melinda Hudson [facility] 08/13/2018 10:02:03 What Was The Date Of Your Most Recent Tobacco Screening? 08/13/2018 Information n ot available 12/15/2019 Sex: Unknown Functional Status None recorded. Mental Status None recorded. Family History Relationship Description Onset Age of this Age Resolved Age Notes LastModified by Organization Details LastModified Time Father No current problems or disability [email or web address] Not available 08/13 10:02:01 Mother No current problems or disability [email or web address] Not available 08/13 10:02:01 Medical History Condition [...] SNOMED-CT Code Diagnosis ICD10 Code Diagnosis Note [id number] CLIFF BARBER MD RHEUMATOL OGY [address] [place] [address] 08/13/2018 09:13:44 08/13/2018 10:48:47 Pain of multiple joints 33820185 M25.50 she has clinical features of [place] OA. no features of an inflammato ry arthritis noted. no features of rheumatoid noted. 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 would suggest to avoid steroids and start OT as stated below. she can RTC with me as prn. Fibromyalgia [id number] M 79.7 she has clinical features suggestive [...] OT to help with the ROM and switchboard operator helper. 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 Health Concerns Section Related Observation LastModified by Organization Detai ls LastModified Time None Recorded Concern Status LastModified by Organization Details LastModified Time None Recorded Advance Directives Directive None Recorded Payers Insurance Date Sequence Insurance Name Policy Number Policy Valdivia Covered Member ID Valdivia Member ID Guarantor Name 02/03/2024 1 [facility] (MEDICAID HMO) [id number] 01/24/2024 1 [place] [employer] [place]FS/TRADITIO NAL Lissy Morgan [place] [id number] [facility] 02/04/2024 1 [facility] (MEDICAID HMO) [facility] [id number] [facility] 01/31/2024 1 [facility] [id number] [facility] [id number] [facility] Notes Date Note Type Note [...] and a normal TSH. CLIFF BARBER MD [facility] [place], [address], [facility] 08/13/2018 17:00:47 OBGyn Episode No OBEpisode recorded.
--- OUTSIDE RECORDS SUMMARY | 2025-03-28 12:22 | XMS_ITS | Data Portability ---
Author Organization [facility] [place] [facility] [place] Alejandro ADMIN Address [address] [place] [address] Care Team Providers Care Overhead Cleaner Name Role Phone ZAHRAA BENAVIDES Primary Care Provider [phone] Assessment Encounter Date Assessment Date Assessment LastModified by Organization Details LastModified Time 08/07/2023 08/07/[address] scan images onto our system. Will review to determine the degree of stone burden bilaterally in the kidneys. Will also plan cystoscopy and pelvic exam in the office in the near future. [email or web address] Not available 08/07/2023 15:34:46 09/25/2023 09/25/2023 I [...] None recorded. Lab urinalysis, dipstick 2024 025 [email or web address] [facility] -105, [address], [place], [address], 5 14:18:52 CBC w/ diff 2024 025 [facility] (Registration ), [address], [place], [address], 5 16:11:55 CMP, serum or plasma 2024 025 [facility] (Registration ), [address], [place], [address], 5 15:39:03 ESR (erythrocyt e sedimentati on rate), blood [address] (Registration ), [address] [facility], [place], [address], 5 08:54:47 C-reactive protein, quantitativ e, serum or plasma [address] (Registration ), [address] [place] [address], [place], [address], 5 08:54:48 culture, urine 2024 025 [facility], [address], [address], [place], [address], 5 19:09:52 urinalysis, dipstick 2022 023 [email or web address] [facility], [address] [facility], [address], [place], [address], 3 16:08:29 Referral None recorded. Procedures None [...] - 58.5 Perfo rmed at: [facility] [address] [place] [address] 1269 Lab Direc tor: Los carson PhD, Phone : [phone] Not Available [facility] ([facility]) [address] [facility], [place], [address], 04/03/2023 10:13:10 04/02/20 23 04/03/2023 FSH FSH, serum 5.4 mIU/m L Adult Femal e: Folli cular phase 3.5 - 12.5 Ovula tion phase 4.7 - 21.5 Lutea l phase 1.7 - 7.7 Postm enopa usal 25.8 - 134.8 Perfo rmed at: [facility] [address] [place] [address] 1265 Lab Direc tor: Los carson PhD, Phone : [phone] Not Available [facility] ([facility]) [address] [facility], [place], [address], 04/03/2023 10:14:16 08/07/20 23 08/07/2023 urina lysis , dipst ick Leukocytes (reference range) trace Not Available [facility] [address] [facility] [address] [place] [address], [address], 08/07/2023 15:15:15 08/07/2008/07/2023 urina lysis , dipst ick Nitrite (reference range:) negati ve Not Available [facility] [address] [facility] [address], [place], [address], 08/07/2023 15:15:15 08/07/20 23 08/07/2023 urina lysis , dipst ick Urobilinogen (reference range) 0.2 Not Available [facility] [address] [place] [address] [address], [place], [address], 08/07/2023 15:15:15 08/07/2008/07/2023 urina lysis , dipst ick Protein (reference range) negati ve Not Available [facility] [address], [place], [address], 08/07/2023 15:15:15 08/07/2008/07/2023 urina lysis , dipst ick pH (reference range 5-8.5) 6.0 Not Available [facility] [address], [place], [address], 08/07/2023 15:15:15 08/07/2008/07/2023 urina lysis , dipst ick Blood (reference range:) small Not Available [facility] [address] [place] [address] [address], [place], [address], 08/07/2023 15:15:15 08/07/2008/07/2023 urina lysis , dipst ick Specific Lizella (reference range) 1.015 Not Available [facility] [address], [place], [address], 08/07/2023 15:15:15 08/07/2008/07/2023 urina lysis , dipst ick Ketone (reference range) negati ve Not Available [address], [place], [address], 08/07/2023 15:15:15 08/07/2008/07/2023 urina lysis , dipst ick Bilirubin (reference range) negati ve Not Available [address], [place], [address], 08/07/2023 15:15:15 08/07/20 23 08/07/2023 urina lysis , dipst ick Glucose (reference range) 250 Not Available [facility] [address] [facility] [address], [place], [address], 08/07/2023 15:15:15 08/07/20 23 08/07/2023 urina lysis , dipst ick Color (reference range: yellow-brown ) Yellow Not Available [facility] [address] [facility] [address], [place], [address], 08/07/2023 15:15:15 02/24/20 25 02/23/2025 CBC AUTO W DIFF WBC 11.3 K/uL 4.0-10 .5 high Not Available [facility] ([facility]) [address] [facility], [place], [address], 02/23/2025 15:02:28 02/24/20 25 02/23/2025 CBC AUTO W DIFF RBC 5.7 M/mm3 4.2-6. 4 Not Available [facility] ([facility]) [address], [place], [address], 02/23/2025 15:02:28 02/24/20 25 02/23/2025 CBC AUTO W DIFF HGB 15.8 gm/dL 12.5-1 6.0 Not Available [facility] ([facility]) [address] [facility], [place], [address], 02/23/2025 15:02:28 02/24/20 25 02/23/2025 CBC AUTO W DIFF HCT 48.8 % 37.0-4 7.0 high Not Available [facility] ([facility]) [address] [place] [address], [place], [address], 02/23/2025 15:02:28 02/24/20 25 02/23/2025 CBC AUTO W DIFF MCV 86.4 fL 78-100 Not Available [facility] ([facility]) [address], [place], [address], 02/23/2025 15:02:28 02/24/20 25 02/23/2025 CBC AUTO W DIFF MCH 28.0 pg 27-31 Not Available [facility] ([facility]) [address], [place], [address], 02/23/2025 15:02:28 02/24/20 25 02/23/2025 CBC AUTO W DIFF MCHC 32.4 g/dL 32-36 Not Available [facility] ([facility]) [address], [place], [address], 02/23/2025 15:02:28 02/24/20 25 02/23/2025 CBC AUTO W DIFF RDW 13.7 % 11.5-1 4.0 Not Available [facility] ([facility]) [address], [place], [address], 02/23/2025 15:02:28 02/24/20 25 02/23/2025 CBC AUTO W DIFF platelet count 380 K/uL 150-45 0 Not Available [facility] ([facility]) [address], [place], [address], 02/23/2025 15:02:28 02/24/20 25 02/23/2025 CBC AUTO W DIFF MPV 10.3 fL 6-9.5 high Not Available [facility] ([facility]) [address], [place], [address], 02/23/2025 15:02:28 02/24/20 25 02/23/2025 CBC AUTO W DIFF neutrophil% 66.5 % 43-65 high Not Available [facility] ([facility]) [address], [place], [address], 02/23/2025 15:02:28 02/24/20 25 02/23/2025 CBC AUTO W DIFF lymphocyte% 24.3 % 20.5-4 5.5 Not Available [facility] ([facility]) [address] [place] [address], [place], [address], 02/23/2025 15:02:28 02/24/20 25 02/23/2025 CBC AUTO W DIFF monocyte% 6.0 % 5.5-11 .7 Not Available [facility] ([facility]) [address] [place] [address], [place], [address], 02/23/2025 15:02:02/24/20 25 02/23/2025 CBC AUTO W DIFF eosinophil% 2.3 % 0.9-2. 9 Not Available [facility] ([facility]) [address] [facility], [place], [address], 02/23/2025 15:02:28 02/24/20 25 02/23/2025 CBC AUTO W DIFF basophil% 0.6 % 0.2-1. 0 Not Available [facility] ([facility]) [address] [place], [address], 02/23/2025 15:02:28 02/24/20 25 02/23/2025 CBC AUTO W DIFF immature granulocytes % 0.3 % 0.0-0. 8 Not Available [facility] ([facility]) [address] [place], [address], 02/23/2025 15:02:28 02/24/20 25 02/23/2025 CBC AUTO W DIFF nucleated red blood cells % 0.0 % Not Available [facility] ([facility]) [address] [place], [address], 02/23/2025 15:02:28 02/24/20 25 02/23/2025 CBC AUTO W DIFF neutrophil# 7.5 K/uL 2.2-4. 8 high Not Available [facility] ([facility]) [address] [facility], [place], [address], 02/23/2025 15:02:28 02/24/20 25 02/23/2025 CBC AUTO W DIFF lymphocyte# 2.7 cell/ mcL 1.3-2. 9 Not Available [facility] ([facility]) [address] [place] [address], [place], [address], 02/23/2025 15:02:28 02/24/20 25 02/23/2025 CBC AUTO W DIFF monocyte# 0.7 cell/ mcL 0.3-0. 8 Not Available [facility] ([facility]) [address] [facility], [place], [address], 02/23/2025 15:02:28 02/24/20 25 02/23/2025 CBC AUTO W DIFF eosinophil# 0.3 cell/ mcL 0-0.2 high Not Available [facility] ([facility]) [address] [facility], [place], [address], 02/23/2025 15:02:28 02/24/20 25 02/23/2025 CBC AUTO W DIFF basophil# 0.1 cell/ mcL 0.0-1. 0 Not Available [facility] ([facility]) [address] [facility], [place], [address], 02/23/2025 15:02:28 02/24/20 25 02/23/2025 CBC AUTO W DIFF immature gramulocytes # 0.03 K/uL Not Available [facility] ([facility]) [address] [facility], [place], [address], 02/23/2025 15:02:28 02/24/20 25 02/23/2025 CBC AUTO W DIFF nucleated red blood cells # 0.00 K/uL Not Available [facility] ([facility]) [address] [facility], [place], [address], 02/23/2025 15:02:28 04/29/02/23/2025 CBC AUTO W DIFF manual differential NO Not Available [facility] ([facility]) [address], [place], [address], 02/23/2025 15:02:28 02/24/20 25 02/23/2025 COMP METAB OLIC PANEL sodium 138 mmol/ L 136-14 5 Not Available [facility] ([facility]) [address], [place], [address], 02/23/2025 15:39:03 02/24/20 25 02/23/2025 COMP METAB OLIC PANEL potassium 3.7 mmol/ L 3.6-5. 0 Not Available [facility] ([facility]) [address] , [place], [address], 02/23/2025 15:39:03 02/24/20 25 02/23/2025 COMP METAB OLIC PANEL chloride 98 mmol/ L 98-107 Not Available [facility] ([facility]) [address] , [place], [address], 02/23/2025 15:39:03 02/24/20 25 02/23/2025 COMP METAB OLIC PANEL carbon dioxide 26.8 mmol/ L 21.0-3 2.0 Not Available [facility] ([facility]) [address] , [place], [address], 02/23/2025 15:39:03 02/24/20 25 02/23/2025 COMP METAB OLIC PANEL anion gap 16.9 Not Available [facility] ([facility]) [address] [place], [address], 02/23/2025 15:39:03 02/24/20 25 02/23/2025 COMP METAB OLIC PANEL glucose 200 mg/dL 70-120 high Not Available [facility] ([facility]) [address], [place], [address], 02/23/2025 15:39:03 02/24/20 25 02/23/2025 COMP METAB OLIC PANEL BUN 12 mg/dL 7-18 Not Available [facility] ([facility]) [address], [place], [address], 02/23/2025 15:39:03 02/24/20 25 02/23/2025 COMP METAB OLIC PANEL creatinine 1.1 mg/dL 0.6-1. 3 Not Available [facility] ([facility]) [address], [place], [address], 02/23/2025 15:39:03 02/24/20 25 02/23/2025 COMP METAB [...] brown ing kiney funct ion. Not Available [facility] ([facility]) [address] , [place], [address], 02/23/2025 15:39:03 02/24/20 25 02/23/2025 COMP METAB OLIC PANEL osmolality (calculated) 293 mOsm/ kg 275-30 1 OSMOL ALITY IS A CALCU LATIO N UTILI ZING THE SERUM /PLAS MA SODIU M, GLUCO SE AND UREA NITRO GEN (BUN) LEVEL S. FOR THE MOST ACCUR ATE RESUL T A MEASU RED SERUM OSMOL ALITY IS SUGGE STED. Not Available [facility] ([facility]) [address], [place], [address], 02/23/2025 15:39:03 02/24/20 25 02/23/2025 COMP METAB OLIC PANEL total protein 8.1 g/dL 6.4-8. 2 Not Available [facility] ([facility]) [address] , [place], [address], 02/23/2025 15:39:03 02/24/20 25 02/23/2025 COMP METAB OLIC PANEL albumin 3.6 g/dL 3.4-5. 0 Not Available [facility] ([facility]) [address] , [place], [address], 02/23/2025 15:39:03 02/24/20 25 02/23/2025 COMP METAB OLIC PANEL globulin 4.5 Not Available [facility] ([facility]) [address], [place], [address], 02/23/2025 15:39:03 02/24/20 25 02/23/2025 COMP METAB OLIC PANEL alb/glob ratio 0.8 0.7-2 Not Available [facility] ([facility]) [address], [place], [address], 02/23/2025 15:39:03 02/24/20 25 02/23/2025 COMP METAB OLIC PANEL calcium 10.2 mg/dL 8.5-10 .5 Not Available [facility] ([facility]) [address], [place], [address], 02/23/2025 15:39:03 02/24/20 25 02/23/2025 COMP METAB OLIC PANEL bilirubin total 0.60 mg/dL 0.10-1 .00 Not Available [facility] ([facility]) [address] [place], [address], 02/23/2025 15:39:03 02/24/20 25 02/23/2025 COMP METAB OLIC PANEL AST (SGOT) 46 U/L 0-37 high Not Available [facility] ([facility]) [address], [place], [address], 02/23/2025 15:39:03 02/24/20 25 02/23/2025 COMP METAB OLIC PANEL ALT (SGPT) 78 U/L 0-65 high Not Available [facility] ([facility]) [address], [place], [address], 02/23/2025 15:39:03 02/24/20 25 02/23/2025 COMP METAB OLIC PANEL alk phosphatase 111 U/L 46-116 Not Available [facility] ([facility]) [address] [facility], [place], [address], 02/23/2025 15:39:03 02/24/20 25 02/23/2025 C-KARLI CTIVE PROTE IN (CRP) C-reactive protein, quant 2.0 mg/dL 0.05-0 .300 high Not Available [facility] ([facility]) [address] [facility], [place], [address], 02/23/2025 15:40:11 02/24/20 25 02/23/2025 SED RATE sed rate auto 9 0-20 Not Available [facility] ([facility]) [address] [facility], [place], [address], 02/23/2025 15:43:35 02/24/20 25 02/27/2025 URINE CULTU RE,CO MPREH ENSIV E urine culture,comp rehensive FINAL REPORT abnormal Not Available [facility] ([facility]) [address] [facility], [place], [address], 02/27/2025 19:09:52 02/24/20 25 02/27/2025 URINE CULTU [...] ng units per mL Not Available [facility] ([facility]) [address] [facility], [place], [address], 02/27/2025 19:09:52 02/24/2002/27/2025 URINE CULTU RE,CO MPREH [...] as Cefta rolin e Not Available [facility] ([facility]) [address] [facility], [place], [address], 02/27/2025 19:09:52 02/24/2002/27/2025 URINE CULTU RE,CO MPREH [...] Vanco mycin R S Not Available [facility] ([facility]) [address] [facility], [place], [address], 02/27/2025 19:09:52 02/24/20 25 02/23/2025 urina lysis , dipst ick Leukocytes (reference range) trace Not Available [place] [address] [address], [place], [address], 02/23/2025 14:16:48 02/24/20 25 02/23/2025 urina lysis , dipst ick Nitrite (reference range:) negati ve Not Available [place] [address] [address] [facility] [address], [place], [address], 02/23/2025 14:16:48 02/24/20 25 02/23/2025 urina lysis , dipst ick Urobilinogen (reference range) 0.2 Not Available [place] [address] [address] [facility] [address], [place], [address], 02/23/2025 14:16:48 02/24/20 25 02/23/2025 urina lysis , dipst ick Protein (reference range) negati ve Not Available [place] [address] [address] [facility] [address], [place], [address], 02/23/2025 14:16:48 02/24/20 25 02/23/2025 urina lysis , dipst ick pH (reference range 5-8.5) 6.0 Not Available [place] [address] [address] [facility] [address], [place], [address], 02/23/2025 14:16:48 02/24/20 25 02/23/2025 urina lysis , dipst ick Blood (reference range:) small Not Available [place] [address] [address] [facility] [address], [place], [address], 02/23/2025 14:16:48 02/24/20 25 02/23/2025 urina lysis , dipst ick Specific Lizella (reference range) 1.015 Not Available [place] [address] [address] [facility] [address], [place], [address], 02/23/2025 14:16:48 02/24/20 25 02/23/2025 urina lysis , dipst ick Ketone (reference range) negati ve Not Available [place] [address] [address] [facility] [address], [place], [address], 02/23/2025 14:16:48 02/24/20 25 02/23/2025 urina lysis , dipst ick Bilirubin (reference range) negati ve Not Available [place] [address] [address] [facility] [address], [place], [address], 02/23/2025 14:16:48 02/24/20 25 02/23/2025 urina lysis , dipst ick Glucose (reference range) 500 Not Available [place] [address] [address] [facility] [address], [place], [address], 02/23/2025 14:16:48 02/24/20 25 02/23/2025 urina lysis , dipst ick Color (reference range: yellow-brown ) Dark Yellow Not Available [place] [address] [address] [facility] [address], [place], [address], 02/23/2025 14:16:48 Result Notes None recorded. Problems Name Problem SNOMED Code Status Onset Date Resolution Date Notes Provider Name and Address Organization Details Recorded Time Syncope 171346792 Active 2021 Malina Hernandez DO [address], [place], [address] , [facility] - [facility] [place] [facility] [place] 15:33:04 Hypersomnia 40126552 Active 2021 Malina Hernandez DO [address] [facility], [place], [address] , [place] - [facility] [place] 15:34:08 Problem Notes None recorded. 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 Procedure Notes None recorded. Medical Equipment None Reported. Allergies Allergen ID Allergen Name Allergen Category Reaction Reaction Severity Criticality Documentation Date Start Date Code Code System Note Provider Name and Address Organization Details Recorded Time 26127 aspirin medicatio n chest pain wheezing moderate severe Not available 10/02/2022 1191 RxNorm Vandana Eugenioa null, [place] [facility] [place] 09:22:42 94180 Bactrim medicatio n arthralgi a (joint pain) muscle cramps severe severe Not available 10/02/2022 58135 9 RxNorm Vandana Eugenioa null, [place] [facility] [place] 09:22:49 70811 insect venom environme nt confusion cough dizziness fever flushing headache wheezing moderate moderate moderate mild moderate moderate moderate Not available 10/02/2022 91041 UNK Vandana catherine, [facility] [place] 2 09:23:13 65533 Pneumococ georges vaccine Not available anaphylax is chest pain facial swelling nausea rash wheezing moderate moderate moderate moderate moderate moderate Not available 10/02/2022 31860 7 RxNorm Vandana catherine, [facility] [place] [facility] [place] 2 09:23:25 00381 rosuvasta tin medicatio n eye swelling facial swelling respirato ry distress moderate moderate moderate Not available 10/02/2022 38419 2 RxNorm Vandana catherine, [facility] [place] 2 09:23:35 Medications Name Sig Start Date [...] % 80 /min 98.6 [degF] 49.6 kg/m2 391534. 86 g 116 mm[Hg] 100 mm[Hg] Bianca Smith [place] - [facility] 5 13:59:18 Date Recorded Body height Heart rate Oxygen saturation Oxygen saturation in Arterial blood by Pulse oximetry Heart rate Body temperature Body mass index (BMI) Body weight Systolic blood pressure Diastolic blood pressure Provider Name and Address Organization Details Last Updated DateTime 5 160.02 cm 60 /min 97 % 97 % 60 /min 97.7 [degF] 49.6 kg/m2 155091. 86 g 119 mm[Hg] 79 mm[Hg] Bianca ELLER - [facility] 5 13:31:54 Date Recorded Body height Body temperature Oxygen saturation Oxygen saturation in Arterial blood by Pulse oximetry Inhaled oxygen flow rate Heart rate Body mass index (BMI) Body weight Systolic blood pressure Diastolic blood pressure Provider Name and Address Organization Details Last Updated DateTime 3 157.48 cm 97.1 [degF] 98 % 98 % 2 L/min 89 /min 48.3 kg/m2 496072. 39 g 128 mm[Hg] 98 mm[Hg] Phillip Morrison [facility] & [place] 3 13:04:48 Date Recorded Body height Body mass index (BMI) Body weight Systolic blood pressure Diastolic blood pressure Provider Name and Address Organization Details Last Updated DateTime 08/07/2023 157.48 cm 49.4 kg/m2 721804.9 4 g 125 mm[Hg] 75 mm[Hg] Britney Yee [facility] & [place] 3 15:05:24 Date Recorded Body height Body mass index (BMI) Body weight Systolic blood pressure Diastolic blood pressure Provider Name and Address Organization Details Last Updated DateTime 09/25/2023 157.48 cm 51.2 kg/m2 632393.8 6 g 126 mm[Hg] 76 mm[Hg] Ioana Ayala [facility] & [place] 3 15:07:04 Social History Question Answer Notes LastModified by The 3Doodlerat ion Details LastModified Time Tobacco Smoking Status Never Smoker [facility] [place] 10/03/2022 14:32:09 Do You Have An Advance Directive? No Information not available 10/03/2022 Are You Blind Or Do You Have Difficulty Seeing? No Information not available 10/03/2022 What Was The Date Of Your Most Recent Tobacco Screening? 09/17/2022 Information not available 10/03/2022 Do You Have Any Pets? Yes [email or web address] Information not available 09/25/2023 Are You Passively Exposed To Smoke? No Information not available 10/03/2022 Are You Currently In School? No [employer] [email or web address] Information not available 09/25/2023 Sex: Female Functional Status Question Answer Note LastModified by Organizat ion Details LastModified Time Do you use any illicit or recreational drugs? No Information not available 10/03/2022 What is your level of alcohol consumption? 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 Occasional Information not available 10/03/2022 Mental Status Question Answer Note LastModified by Organization D etails LastModified Time Do you feel stressed (tense, restless, nervous, or anxious, or unable to sleep at night)? [id number] Information not available 10/03/2022 Family History Relationship [...] SNOMED-CT Code Diagnosis ICD10 Code Diagnosis Note [id number] DO Chanell SanchezRoberts [facility] [address] [facility],[address] [place] [address] 10/03/2022 14:07:23 10/03/2022 15:38:25 Syncope [id number] R55 She has been experienci ng these stereotypi georges passing out episodes for five years. No definite witnessed convulsion s but some associated brief confusion afterwards .will order EEG to rule out neurologic causes of syncope Hypersomnia [id number] G47 .10 She describes some significan t episodes of pathologic al sleepiness . She will fall asleep without warning in the middle of talking. This is very infrequent but can be suggestive of narcolepsy . Will order PSG with MSLT to evaluate this in more detail. 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 [id number] Silvio Valdez MD [facility] [address] [place] [address],[address] [place] [address] 08/07/2023 14:35:57 08/07/2023 15:40:17 Recurrent urinary tract infection [id number] N39.0 Kidney stone [id number] N2 0.0 Chronic th oracic back pain [id number] 54499 M54.6 Microscopic hematuria 19 [id number] R31.29 [id number] Silvio Valdez MD [facility] [address] [place] [address],[address] [place] [address] 09/25/2023 14:26:57 09/25/2023 15:25:02 Recurrent urinary tract infection [id number] N39.0 Kidney stone [id number] N2 0.0 Microscopic hematuria 19 8956150 R31.29 [id number] [facility]105 [address] [facility] [address] [place] [address] 02/23/2025 13:48:33 02/23/2025 14:17:11 Recurrent urinary tract infection [id number] N39.0 Will check lab work. Will send urine off for a culture. Will see patient back in 1 week. 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 Patient will follow up in 2 weeks. Call the office if anything persists or worsens. 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 see above Health Concerns Section Related Observation LastModified by Organization Detai ls LastModified Time None Recorded Concern Status LastModified by Organization Details LastModified Time None Recorded Advance Directives Directive N: Payers Insurance Date Sequence Insurance Name Policy Number Policy Valdivia Covered Member ID Valdivia Member ID Guarantor Name 09/18/2023 1 [employer] [facility] (POS II) [facility] [id number] [facility] 02/27/2025 1 [facility] (MEDICAID HMO) [facility] [id number] [facility] Notes [...] time. 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 Micheline Lackey MD [address] [facility], [place], [address], [facility] - [place] & [place] 04/18/2023 12:50:43 08/07/2023 text/html Location: Histor y [...] status post hysterectomy. Silvio Valdez MD [address] [facility], [place], [address], [facility] - [place] & [place] 08/07/2023 15:35:17 09/25/2023 text/html Patient returns to [...] hysterectomy. Silvio Valdez MD [address], [place], [address], [facility] & [place] 09/25/2023 15:30:10 02/23/2025 text/html patient presents to [...] 2025. Marilou David APRN [address], [place], [address], [facility] & [place] 02/24/2025 10:59:38 03/02/2025 text/html patient presents to clinic for follow up. Urine culture results received. Patient denies any fever. She is scheduled to have surgery to remove her stone on . Marilou David APRN [address], [place], [address], [facility] - [facility] & [place] 03/02/2025 13:35:40 OBGyn Episode No OBEpisode recorded.
[2025-03-28] MEDS: ERTAPENEM SODIUM 1 GM in 0.9 % SODIUM CHLORIDE 50 ML IV (12:35)
== END 2025-03-28 23:59 | disposition home or self-care (01) ==
LOC: INF 12:20
PROVIDERS: Visit Provider Internal Medicine
DX: N39.0 Urinary tract infection, site not specified (principal); Z16.24 Resistance to multiple antibiotics
CPT/HCPCS: 96365; J1335

== ENCOUNTER 2025-03-29 12:26 | Outpatient (RCR) | payer OTHER, SELFPAY ==
[2025-03-29 12:32] VITALS: BP 98/59; PULSE 58; RESP 16; TEMP 36.7; O2SAT 97
[2025-03-29] MEDS: ERTAPENEM SODIUM 1 GM in 0.9 % SODIUM CHLORIDE 50 ML IV (12:32)
[2025-03-29] MEDS: SODIUM CHLORIDE 0.9% 10ML FLUSH SYRINGE 10 ML IV (12:32)
[2025-03-29] MEDS: SODIUM CHLORIDE 0.9% 50ML BAG 50 ML IV (12:32)
[2025-03-29 13:15] VITALS: BP 107/60; PULSE 60; RESP 16; TEMP 36.7; O2SAT 96
== END 2025-03-29 13:15 | disposition home or self-care (01) ==
LOC: INF 12:26
PROVIDERS: PCP Internal Medicine; Visit Provider Internal Medicine
DX: N12 Tubulo-interstitial nephritis, not specified as acute or chronic (principal); N20.0 Calculus of kidney
CPT/HCPCS: 96365; J1335

== ENCOUNTER 2025-03-30 12:15 | Outpatient (CLI) | payer OTHER, SELFPAY ==
--- OUTSIDE RECORDS SUMMARY | 2025-03-30 12:18 | XMS_ITS | Data Portability ---
Author Organization [facility] [place] [facility] [place] Alejandro ADMIN Address [address] [place] [id number] Care Team Providers [facility] Manager Name Role Phone ZAHRAA BENAVIDES Primary Care Provider [phone] Assessment Encounter Date Assessment Date Assessment LastModified by Organization Details LastModified Time 08/07/2023 08/07/[address] scan images onto our system. Will review to determine the degree of stone burden bilaterally in the kidneys. Will also plan cystoscopy and pelvic exam in the office in the near future. [email or web address] Not available 08/07/2023 15:34:46 09/25/2023 09/25/2023 I [...] in 6 months with KUB and UA. [email or web address] Not available 09/25/2023 15:29:09 Plan of Treatment Reminders Order Date Submit Date Provider Last Modified By Organization Details Last Modified Time Details Appointments None recorded. Lab urinalysis, dipstick 2024 025 [facility] -[facility], [address], [place], [address], 5 14:18:52 CBC w/ diff 2024 025 [facility] (Registration ), [address], [place], [address], 5 16:11:55 CMP, serum or plasma 2024 025 [facility] (Registration ), [address], [place], [address], 5 15:39:03 ESR (erythrocyt e sedimentati on rate), blood [address] (Registration ), [address] [facility], [place], [address], 5 08:54:47 C-reactive protein, quantitativ e, serum or plasma [address] (Registration ), [address], [place], [address], 5 08:54:48 culture, urine 2024 025 [place], [address], [address], [place], [address], 5 19:09:52 urinalysis, dipstick 2022 023 [email or web address] [facility], [address] [facility], [address], [place], [address], 3 16:08:29 Referral None recorded. Procedures None [...] - 58.5 Perfo rmed at: [facility] [address] [place] [address] 1269 Lab Direc tor: Los carson PhD, Phone : [phone] Not Available [facility] ([facility]) [address] [facility], [place], [address], 04/03/2023 10:13:10 04/02/20 23 04/03/2023 FSH FSH, serum 5.4 mIU/m L Adult Femal e: Folli cular phase 3.5 - 12.5 Ovula tion phase 4.7 - 21.5 Lutea l phase 1.7 - 7.7 Postm enopa usal 25.8 - 134.8 Perfo rmed at: [facility] [address] [place] [address] 1260 Lab Direc tor: Los carson PhD, Phone : [phone] Not Available [facility] ([facility]) [address] [facility], [place], [address], 04/03/2023 10:14:16 08/07/20 23 08/07/2023 urina lysis , dipst ick Leukocytes (reference range) trace Not Available [facility] [address] [facility] [address] [place] [address], [address], 08/07/2023 15:15:15 08/07/2008/07/2023 urina lysis , dipst ick Nitrite (reference range:) negati ve Not Available [facility] [address] [facility] [address], [place], [address], 08/07/2023 15:15:15 08/07/20 23 08/07/2023 urina lysis , dipst ick Urobilinogen (reference range) 0.2 Not Available [facility] [address] [place] [address] [address], [place], [address], 08/07/2023 15:15:15 08/07/2008/07/2023 urina lysis , dipst ick Protein (reference range) negati ve Not Available [facility] [address], [place], [address], 08/07/2023 15:15:15 08/07/2008/07/2023 urina lysis , dipst ick pH (reference range 5-8.5) 6.0 Not Available [facility] [address], [place], [address], 08/07/2023 15:15:15 08/07/2008/07/2023 urina lysis , dipst ick Blood (reference range:) small Not Available [facility] [address] [place] [address] [address], [place], [address], 08/07/2023 15:15:15 08/07/2008/07/2023 urina lysis , dipst ick Specific [place] (reference range) 1.015 Not Available [facility] [address], [place], [address], 08/07/2023 15:15:15 08/07/2008/07/2023 urina lysis , dipst ick Ketone (reference range) negati ve Not Available [address], [place], [address], 08/07/2023 15:15:15 08/07/2008/07/2023 urina lysis , dipst ick Bilirubin (reference range) negati ve Not Available [address], [place], [address], 08/07/2023 15:15:15 08/07/20 23 08/07/2023 urina lysis , dipst ick Glucose (reference range) [address] [facility] [address] [facility] [address], [place], [address], 08/07/2023 15:15:15 08/07/20 23 08/07/2023 urina lysis , dipst ick Color (reference range: yellow-brown ) Yellow Not Available [facility] [address] [facility] [address], [place], [address], 08/07/2023 15:15:15 02/24/20 25 02/23/2025 CBC AUTO W DIFF WBC 11.3 K/uL 4.0-10 .5 high Not Available [facility] ([facility]) [address] [facility], [place], [address], 02/23/2025 15:02:28 02/24/20 25 02/23/2025 CBC AUTO W DIFF RBC 5.7 M/mm3 4.2-6. 4 Not Available [facility] ([facility]) [address], [place], [address], 02/23/2025 15:02:28 02/24/20 25 02/23/2025 CBC AUTO W DIFF HGB 15.8 gm/dL 12.5-1 6.0 Not Available [facility] ([facility]) [address] [facility], [place], [address], 02/23/2025 15:02:28 02/24/20 25 02/23/2025 CBC AUTO W DIFF HCT 48.8 % 37.0-4 7.0 high Not Available [facility] ([facility]) [address], [place], [address], 02/23/2025 15:02:28 02/24/20 25 02/23/2025 CBC AUTO W DIFF MCV 86.4 fL 78-100 Not Available [facility] ([facility]) [address], [place], [address], 02/23/2025 15:02:28 02/24/20 25 02/23/2025 CBC AUTO W DIFF MCH 28.0 pg 27-31 Not Available [facility] ([facility]) [address], [place], [address], 02/23/2025 15:02:28 02/24/20 25 02/23/2025 CBC AUTO W DIFF MCHC 32.4 g/dL 32-36 Not Available [facility] ([facility]) [address], [place], [address], 02/23/2025 15:02:28 02/24/20 25 02/23/2025 CBC AUTO W DIFF RDW 13.7 % 11.5-1 4.0 Not Available [facility] ([facility]) [address], [place], [address], 02/23/2025 15:02:28 02/24/20 25 02/23/2025 CBC AUTO W DIFF platelet count 380 K/uL 150-45 0 Not Available [facility] ([facility]) [address], [place], [address], 02/23/2025 15:02:28 02/24/20 25 02/23/2025 CBC AUTO W DIFF MPV 10.3 fL 6-9.5 high Not Available [facility] ([facility]) [address], [place], [address], 02/23/2025 15:02:28 02/24/20 25 02/23/2025 CBC AUTO W DIFF neutrophil% 66.5 % 43-65 high Not Available [facility] ([facility]) [address], [place], [address], 02/23/2025 15:02:28 02/24/20 25 02/23/2025 CBC AUTO W DIFF lymphocyte% 24.3 % 20.5-4 5.5 Not Available [facility] ([facility]) [address], [place], [address], 02/23/2025 15:02:28 02/24/20 25 02/23/2025 CBC AUTO W DIFF monocyte% 6.0 % 5.5-11 .7 Not Available [facility] ([facility]) [address], [place], [address], 02/23/2025 15:02:02/24/20 25 02/23/2025 CBC AUTO W DIFF eosinophil% 2.3 % 0.9-2. 9 Not Available [facility] ([facility]) [address] [facility], [place], [address], 02/23/2025 15:02:28 02/24/20 25 02/23/2025 CBC AUTO W DIFF basophil% 0.6 % 0.2-1. 0 Not Available [facility] ([facility]) [address] [place], [address], 02/23/2025 15:02:28 02/24/20 25 02/23/2025 CBC AUTO W DIFF immature granulocytes % 0.3 % 0.0-0. 8 Not Available [facility] ([facility]) [address] [place], [address], 02/23/2025 15:02:28 02/24/20 25 02/23/2025 CBC AUTO W DIFF nucleated red blood cells % 0.0 % Not Available [facility] ([facility]) [address] [place], [address], 02/23/2025 15:02:28 02/24/20 25 02/23/2025 CBC AUTO W DIFF neutrophil# 7.5 K/uL 2.2-4. 8 high Not Available [facility] ([facility]) [address] [facility], [place], [address], 02/23/2025 15:02:28 02/24/20 25 02/23/2025 CBC AUTO W DIFF lymphocyte# 2.7 cell/ mcL 1.3-2. 9 Not Available [facility] ([facility]) [address], [place], [address], 02/23/2025 15:02:28 02/24/20 25 02/23/2025 CBC AUTO W DIFF monocyte# 0.7 cell/ mcL 0.3-0. 8 Not Available [facility] ([facility]) [address] [facility], [place], [address], 02/23/2025 15:02:28 02/24/20 25 02/23/2025 CBC AUTO W DIFF eosinophil# 0.3 cell/ mcL 0-0.2 high Not Available [facility] ([facility]) [address] [facility], [place], [address], 02/23/2025 15:02:28 02/24/20 25 02/23/2025 CBC AUTO W DIFF basophil# 0.1 cell/ mcL 0.0-1. 0 Not Available [facility] ([facility]) [address] [facility], [place], [address], 02/23/2025 15:02:28 02/24/20 25 02/23/2025 CBC AUTO W DIFF immature gramulocytes # 0.03 K/uL Not Available [facility] ([facility]) [address] [facility], [place], [address], 02/23/2025 15:02:28 02/24/20 25 02/23/2025 CBC AUTO W DIFF nucleated red blood cells # 0.00 K/uL Not Available [facility] ([facility]) [address] [facility], [place], [address], 02/23/2025 15:02:28 04/29/02/23/2025 CBC AUTO W DIFF manual differential NO Not Available [facility] ([facility]) [address], [place], [address], 02/23/2025 15:02:28 02/24/20 25 02/23/2025 COMP METAB OLIC PANEL sodium 138 mmol/ L 136-14 5 Not Available [facility] ([facility]) [address], [place], [address], 02/23/2025 15:39:03 02/24/20 25 02/23/2025 COMP METAB OLIC PANEL potassium 3.7 mmol/ L 3.6-5. 0 Not Available [facility] ([facility]) [address] , [place], [address], 02/23/2025 15:39:03 02/24/20 25 02/23/2025 COMP METAB OLIC PANEL chloride 98 mmol/ L 98-107 Not Available [facility] ([facility]) [address] , [place], [address], 02/23/2025 15:39:03 02/24/20 25 02/23/2025 COMP METAB OLIC PANEL carbon dioxide 26.8 mmol/ L 21.0-3 2.0 Not Available [facility] ([facility]) [address] , [place], [address], 02/23/2025 15:39:03 02/24/20 25 02/23/2025 COMP METAB OLIC PANEL anion gap 16.9 Not Available [facility] ([facility]) [address] [place], [address], 02/23/2025 15:39:03 02/24/20 25 02/23/2025 COMP METAB OLIC PANEL glucose 200 mg/dL 70-120 high Not Available [facility] ([facility]) [address], [place], [address], 02/23/2025 15:39:03 02/24/20 25 02/23/2025 COMP METAB OLIC PANEL BUN 12 mg/dL 7-18 Not Available [facility] ([facility]) [address], [place], [address], 02/23/2025 15:39:03 02/24/20 25 02/23/2025 COMP METAB OLIC PANEL creatinine 1.1 mg/dL 0.6-1. 3 Not Available [facility] ([facility]) [address], [place], [address], 02/23/2025 15:39:03 02/24/20 25 02/23/2025 COMP METAB [...] brown ing kiney funct ion. Not Available [facility] ([facility]) [address] , [place], [address], 02/23/2025 15:39:03 02/24/20 25 02/23/2025 COMP METAB OLIC PANEL osmolality (calculated) 293 mOsm/ kg 275-30 1 OSMOL ALITY IS A CALCU LATIO N UTILI ZING THE SERUM /PLAS MA SODIU M, GLUCO SE AND UREA NITRO GEN (BUN) LEVEL S. FOR THE MOST ACCUR ATE RESUL T A MEASU RED SERUM OSMOL ALITY IS SUGGE STED. Not Available [facility] ([facility]) [address], [place], [address], 02/23/2025 15:39:03 02/24/20 25 02/23/2025 COMP METAB OLIC PANEL total protein 8.1 g/dL 6.4-8. 2 Not Available [facility] ([facility]) [address] , [place], [address], 02/23/2025 15:39:03 02/24/20 25 02/23/2025 COMP METAB OLIC PANEL albumin 3.6 g/dL 3.4-5. 0 Not Available [facility] ([facility]) [address] , [place], [address], 02/23/2025 15:39:03 02/24/20 25 02/23/2025 COMP METAB OLIC PANEL globulin 4.5 Not Available [facility] ([facility]) [address], [place], [address], 02/23/2025 15:39:03 02/24/20 25 02/23/2025 COMP METAB OLIC PANEL alb/glob ratio 0.8 0.7-2 Not Available [facility] ([facility]) [address], [place], [address], 02/23/2025 15:39:03 02/24/20 25 02/23/2025 COMP METAB OLIC PANEL calcium 10.2 mg/dL 8.5-10 .5 Not Available [facility] ([facility]) [address], [place], [address], 02/23/2025 15:39:03 02/24/20 25 02/23/2025 COMP METAB OLIC PANEL bilirubin total 0.60 mg/dL 0.10-1 .00 Not Available [facility] ([facility]) [address] [place], [address], 02/23/2025 15:39:03 02/24/20 25 02/23/2025 COMP METAB OLIC PANEL AST (SGOT) 46 U/L 0-37 high Not Available [facility] ([facility]) [address], [place], [address], 02/23/2025 15:39:03 02/24/20 25 02/23/2025 COMP METAB OLIC PANEL ALT (SGPT) 78 U/L 0-65 high Not Available [facility] ([facility]) [address], [place], [address], 02/23/2025 15:39:03 02/24/20 25 02/23/2025 COMP METAB OLIC PANEL alk phosphatase 111 U/L 46-116 Not Available [facility] ([facility]) [address] [facility], [place], [address], 02/23/2025 15:39:03 02/24/20 25 02/23/2025 C-KARLI CTIVE PROTE IN (CRP) C-reactive protein, quant 2.0 mg/dL 0.05-0 .300 high Not Available [facility] ([facility]) [address] [facility], [place], [address], 02/23/2025 15:40:11 02/24/20 25 02/23/2025 SED RATE sed rate auto 9 0-20 Not Available [facility] ([facility]) [address] [facility], [place], [address], 02/23/2025 15:43:35 02/24/20 25 02/27/2025 URINE CULTU RE,CO MPREH ENSIV E urine culture,comp rehensive FINAL REPORT abnormal Not Available [facility] ([facility]) [address], [place], [address], 02/27/2025 19:09:52 02/24/20 25 02/27/2025 URINE CULTU [...] per mL Not Available [facility] ([facility]) [address], [place], [address], 02/27/2025 19:09:52 02/24/2002/27/2025 URINE CULTU RE,CO MPREH [...] rolin e Not Available [facility] ([facility]) [address], [place], [address], 02/27/2025 19:09:52 02/24/2002/27/2025 URINE CULTU RE,CO MPREH [...] R S Not Available [facility] ([facility]) [address], [place], [address], 02/27/2025 19:09:52 02/24/20 25 02/23/2025 urina lysis , dipst ick Leukocytes (reference range) trace Not Available [place] [address], [place], [address], 02/23/2025 14:16:48 02/24/20 25 02/23/2025 urina lysis , dipst ick Nitrite (reference range:) negati ve Not Available [place] [address] [address] [facility] [address], [place], [address], 02/23/2025 14:16:48 02/24/20 25 02/23/2025 urina lysis , dipst ick Urobilinogen (reference range) 0.2 Not Available [place] [address] [address] [facility] [address], [place], [address], 02/23/2025 14:16:48 02/24/20 25 02/23/2025 urina lysis , dipst ick Protein (reference range) negati ve Not Available [place] [address] [address] [facility] [address], [place], [address], 02/23/2025 14:16:48 02/24/20 25 02/23/2025 urina lysis , dipst ick pH (reference range 5-8.5) 6.0 Not Available [place] [address] [address] [facility] [address], [place], [address], 02/23/2025 14:16:48 02/24/20 25 02/23/2025 urina lysis , dipst ick Blood (reference range:) small Not Available [place] [address] [address] [facility] [address], [place], [address], 02/23/2025 14:16:48 02/24/20 25 02/23/2025 urina lysis , dipst ick Specific [place] (reference range) 1.015 Not Available [place] [address] [address] [facility] [address], [place], [address], 02/23/2025 14:16:48 02/24/20 25 02/23/2025 urina lysis , dipst ick Ketone (reference range) negati ve Not Available [place] [address] [address] [facility] [address], [place], [address], 02/23/2025 14:16:48 02/24/20 25 02/23/2025 urina lysis , dipst ick Bilirubin (reference range) negati ve Not Available [place] [address] [address] [facility] [address], [place], [address], 02/23/2025 14:16:48 02/24/20 25 02/23/2025 urina lysis , dipst ick Glucose (reference range) 500 Not Available [place] [address] [address] [facility] [address], [place], [address], 02/23/2025 14:16:48 02/24/20 25 02/23/2025 urina lysis , dipst ick Color (reference range: yellow-brown ) Dark Yellow Not Available [place] [address] [address] [facility] [address], [place], [address], 02/23/2025 14:16:48 Result Notes None recorded. Problems Name Problem SNOMED Code Status Onset Date Resolution Date Notes Provider Name and Address Organization Details Recorded Time Syncope 152814625 Active 2021 Malina Hernandez DO [address], [place], [address] , [facility] - [facility] - [place] & [place] 15:33:04 Hypersomnia 47579125 Active 2021 Malina Hernandez DO [address] [facility], [place], [address] , [place] - [facility] & [place] 15:34:08 Problem Notes None recorded. 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 Operator Surgery completed Vandana Dalla [place] - [facility] - [place] & [place] 10/03/2022 14:45:45 10/28/19 17 Cholecystectomy completed Vandana Dalla [place] - [facility] & [place] 10/03/2022 14:32:27 10/28/19 14 Other completed Vandana Dalla [place] - [facility] [place] & [place] 10/03/2022 14:44:51 cardiac catheterization completed Vandana Dalla [place] - [facility] & [place] 10/03/2022 14:46:31 strabismus surgery completed Vandana Dalla [place] - [facility] - [place] & [place] 10/03/2022 14:55:15 Imaging Results None recorded. Procedure Notes None recorded. Medical Equipment None Reported. Allergies Allergen ID Allergen Name Allergen Category Reaction Reaction Severity Criticality Documentation Date Start Date Code Code System Note Provider Name and Address Organization Details Recorded Time 96629 aspirin medicatio n chest pain wheezing moderate severe Not available 10/02/2022 1191 RxNorm Vandana Eugenioa null, [place] - [facility] & [place] 09:22:42 37264 Bactrim medicatio n arthralgi a (joint pain) muscle cramps severe severe Not available 10/02/2022 14435 9 RxNorm Vandana Eugenioa null, [place] - [facility] & [place] 09:22:49 48306 insect venom environme nt confusion cough dizziness fever flushing headache wheezing moderate moderate moderate mild moderate moderate moderate Not available 10/02/2022 59785 UNK Vandana catherine, [facility] - [facility] & [place] 2 09:23:13 95754 Pneumococ georges vaccine Not available anaphylax is chest pain facial swelling nausea rash wheezing moderate moderate moderate moderate moderate moderate Not available 10/02/2022 87624 7 RxNorm Vandana catherine, [facility] [place] [facility] & [place] 2 09:23:25 53056 rosuvasta tin medicatio n eye swelling facial swelling respirato ry distress moderate moderate moderate Not available 10/02/2022 56729 2 RxNorm Vandana catherine, [facility] - [facility] & [place] 2 09:23:35 Medications Name Sig Start Date [...] % 80 /min 98.6 [degF] 49.6 kg/m2 366330. 86 g 116 mm[Hg] 100 mm[Hg] Bianca Smith [place] - [facility] 5 13:59:18 Date Recorded Body height Heart rate Oxygen saturation Oxygen saturation in Arterial blood by Pulse oximetry Heart rate Body temperature Body mass index (BMI) Body weight Systolic blood pressure Diastolic blood pressure Provider Name and Address Organization Details Last Updated DateTime 5 160.02 cm 60 /min 97 % 97 % 60 /min 97.7 [degF] 49.6 kg/m2 818805. 86 g 119 mm[Hg] 79 mm[Hg] Bianca ELLER - [facility] 5 13:31:54 Date Recorded Body height Body temperature Oxygen saturation Oxygen saturation in Arterial blood by Pulse oximetry Inhaled oxygen flow rate Heart rate Body mass index (BMI) Body weight Systolic blood pressure Diastolic blood pressure Provider Name and Address Organization Details Last Updated DateTime 3 157.48 cm 97.1 [degF] 98 % 98 % 2 L/min 89 /min 48.3 kg/m2 323596. 39 g 128 mm[Hg] 98 mm[Hg] Phillip Morrison [facility] & [place] 3 13:04:48 Date Recorded Body height Body mass index (BMI) Body weight Systolic blood pressure Diastolic blood pressure Provider Name and Address Organization Details Last Updated DateTime 08/07/2023 157.48 cm 49.4 kg/m2 269626.9 4 g 125 mm[Hg] 75 mm[Hg] Britney Yee [facility] & [place] 3 15:05:24 Date Recorded Body height Body mass index (BMI) Body weight Systolic blood pressure Diastolic blood pressure Provider Name and Address Organization Details Last Updated DateTime 09/25/2023 157.48 cm 51.2 kg/m2 421290.8 6 g 126 mm[Hg] 76 mm[Hg] Ioana Ayala [facility] & [place] 3 15:07:04 Social History Question Answer Notes LastModified by [employer] ion Details LastModified Time Tobacco Smoking Status Never Smoker [facility] [place] 10/03/2022 14:32:09 Do You Have An Advance Directive? No Information not available 10/03/2022 Are You Blind Or Do You Have Difficulty Seeing? No Information not available 10/03/2022 What Was The Date Of Your Most Recent Tobacco Screening? 09/17/2022 Information not available 10/03/2022 Do You Have Any Pets? Yes [email or web address] Information not available 09/25/2023 Are You Passively Exposed To Smoke? No Information not available 10/03/2022 Are You Currently In School? No [employer] [email or web address] Information not available 09/25/2023 Sex: Female Functional Status Question Answer Note LastModified by Organizat ion Details LastModified Time Do you use any illicit or recreational drugs? No Information not available 10/03/2022 What is your level of alcohol consumption? 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 Occasional Information not available 10/03/2022 Mental Status Question Answer Note LastModified by Organization D etails LastModified Time Do you feel stressed (tense, restless, nervous, or anxious, or unable to sleep at night)? [id number] Information not available 10/03/2022 Family History Relationship [...] SNOMED-CT Code Diagnosis ICD10 Code Diagnosis Note [id number] [facility] [address] [facility],[address] [place] [address] 10/03/2022 14:07:23 10/03/2022 15:38:25 Syncope [id number] R55 She has been experienci ng these stereotypi georges passing out episodes for five years. No definite witnessed convulsion s but some associated brief confusion afterwards .will order EEG to rule out neurologic causes of syncope Hypersomnia 94429898 G47 .10 She describes some significan t episodes of pathologic al sleepiness . She will fall asleep without warning in the middle of talking. This is very infrequent but can be suggestive of narcolepsy . Will order PSG with MSLT to evaluate this in more detail. 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 [id number] Silvio Valdez MD [facility] Urology [address] [place] [address],[address] [place] [address] 08/07/2023 14:35:57 08/07/2023 15:40:17 Recurrent urinary tract infection 236422095 N39.0 Kidney stone 15330292 N2 0.0 Chronic th oracic back pain [id number] 30424 M54.6 Microscopic hematuria 19 7053832 R31.29 [id number] Silvio Valdez MD [facility] Urology [address] [place] [address],[address] [place] [address] 09/25/2023 14:26:57 09/25/2023 15:25:02 Recurrent urinary tract infection 237199617 N39.0 Kidney stone 80504047 N2 0.0 Microscopic hematuria 19 6878388 R31.29 [id number] [facility] [address] [facility] [address] [place] [address] 02/23/2025 13:48:33 02/23/2025 14:17:11 Recurrent urinary tract infection 038723826 N39.0 Will check lab work. Will send urine off for a culture. Will see patient back in 1 week. 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 Patient will follow up in 2 weeks. Call the office if anything persists or worsens. 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 see above Health Concerns Section Related Observation LastModified by Organization Detai ls LastModified Time None Recorded Concern Status LastModified by Organization Details LastModified Time None Recorded Advance Directives Directive N: Payers Insurance Date Sequence Insurance Name Policy Number Policy Valdivia Covered Member ID Valdivia Member ID Guarantor Name 09/18/2023 1 [employer] [facility] (POS II) [facility] [id number] [facility] 02/27/2025 1 [facility] (MEDICAID HMO) [facility] [id number] [facility] Notes Date Note Type Note [...] time. 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 Micheline Lackey MD [address] [facility], [place], [address], [facility] - [place] & [place] 04/18/2023 12:50:43 08/07/2023 text/html Location: Histor y [...] hysterectomy. Silvio Valdez MD [address] [facility], [place], [address], [facility] - [facility] - [place] & [place] 08/07/2023 15:35:17 09/25/2023 text/html Patient returns to [...] hysterectomy. Silvio Valdez MD [address], [place], [address], [facility] & [place] 09/25/2023 15:30:10 02/23/2025 text/html patient presents to [...] 2025. Marilou David APRN [address], [place], [address], [facility] & [place] 02/24/2025 10:59:38 03/02/2025 text/html patient presents to clinic for follow up. Urine culture results received. Patient denies any fever. She is scheduled to have surgery to remove her stone on . Marilou David APRN [address], [place], [address], [facility] - [facility] & [place] 03/02/2025 13:35:40 OBGyn Episode No OBEpisode recorded.
--- OUTSIDE RECORDS SUMMARY | 2025-03-30 12:18 | XMS_ITS | Continuity of Care Document ---
Author Organization [facility] Infectious Disease -[address] [place] [address] Care Team Providers Care Tamale Maker Name Role Phone ZAHRAA BENAVIDES Primary Care Provider [phone] Assessment No assessment recorded. Plan of Treatment [...] and Address Organization Details Recorded Time Syncope 702205921 Active 2021 Malina Hernandez DO [address], [place], [address] , [facility] & [place] 2 15:33:04 Hypersomnia 73428046 Active 2021 Malina Hernandez DO [address], [place], [address] [facility] & [place] 2 15:34:08 Problem Notes None recorded. Procedures Surgical History Date Name Laterality Status Provider Name and Address Organization Details Recorded Time 09/25/20 23 Cystoscopy-Female completed Silvio Valdez MD [address] , [place], [address], [facility] & [place] 09/25/2023 15:26:11 04/04/20 22 Date of Last Pap Smear completed Vandana Harris [facility] & [place] 10/03/2022 14:31:43 10/28/19 22 Fashion Photographer Surgery completed Vandana ELLER - [facility] - [place] & [place] 10/03/2022 14:45:45 10/28/19 17 Cholecystectomy completed Vandana ELLER - [facility] & [place] 10/03/2022 14:32:27 10/28/19 14 Other completed Vandana ELLER - [facility] & [place] 10/03/2022 14:44:51 cardiac catheterization completed Vandana ELLER - [facility] & [place] 10/03/2022 14:46:31 strabismus surgery completed Vandana ELLER - [facility] & [place] 10/03/2022 14:55:15 Imaging Results None recorded. Procedure Notes None recorded. Medical Equipment None Reported. Allergies Allergen ID Allergen Name Allergen Category Reaction Reaction Severity Criticality Documentation Date Start Date Code Code System Note Provider Name and Address Organization Details Recorded Time 01724 aspirin medicatio n chest pain wheezing moderate severe Not available 10/02/2022 1191 RxNorm Vandana catherine, RAFITA - [facility] & [place] 09:22:42 54539 Bactrim medicatio n arthralgi a (joint pain) muscle cramps severe severe Not available 10/02/2022 89846 9 RxNorm Vandana catherine, RAFITA - [facility] & [place] 09:22:49 90866 insect venom environme nt confusion cough dizziness fever flushing headache wheezing moderate moderate moderate mild moderate moderate moderate Not available 10/02/2022 62732 UNK Vandana catherine, RAFITA - [facility] & [place] 09:23:13 23138 Pneumococ georges vaccine Not available anaphylax is chest pain facial swelling nausea rash wheezing moderate moderate moderate moderate moderate moderate Not available 10/02/2022 23349 7 RxNorm Vandana Steven null, [place] - [facility] & [place] 09:23:25 56867 rosuvasta tin medicatio n eye swelling facial swelling respirato ry distress moderate moderate moderate Not available 10/02/2022 95870 2 RxNorm RAFITA Reed - [facility] - [place] & [place] 2 09:23:35 Medications Name Sig [...] % 60 /min 97.7 [degF] 49.6 kg/m2 571609. 86 g 119 mm[Hg] 79 mm[Hg] Bianca Smith [facility] & [place] 13:31:54 Social History Question Answer Notes LastModified by Organizat ion Details LastModified Time Tobacco Smoking Status [facility] [place] 10/03/2022 14:32:09 Do You Have An Advance Directive? No Information not available 10/03/2022 Are You Blind Or Do You Have Difficulty Seeing? No Information not available 10/03/2022 What Was The Date Of Your Most Recent Tobacco Screening? 09/17/2022 Information not available 10/03/2022 Do You Have Any Pets? Yes [email or web address] Information not available 09/25/2023 Are You Passively Exposed To Smoke? No Information not available 10/03/2022 Are You Currently In School? No [employer] [email or web address] Information not available 09/25/2023 Sex: Female Functional Status Question Answer Note LastModified by Organizat ion Details LastModified Time Do you use any illicit or recreational drugs? No Information not available 10/03/2022 What is your level of alcohol consumption? 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 Occasional Information not available 10/03/2022 Mental Status Question Answer Note LastModified by Organization D etails LastModified Time Do you feel stressed (tense, restless, nervous, or anxious, or unable to sleep at night)? [id number] Information not available 10/03/2022 Family History Relationship [...] SNOMED-CT Code Diagnosis ICD10 Code Diagnosis Note [id number] [facility]Taylor [facility] Infect[facility] Disease -[address] [address] 02/23/2025 13:48:33 02/23/2025 14:17:11 Recurrent urinary tract infection 551992500 N39.0 Will check lab work. Will send urine off for a culture. Will see patient back in 1 week. 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 Patient will follow up in 2 weeks. Call the office if anything persists or worsens. 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 Urine culture results received. Patient denies any fever. She is scheduled to have surgery to remove her stone on . Marilou David, LIME KILN TENDER [address], [place], [address], [place] - [facility] - [place] & [place] 03/02/2025 13:35:40 OBGyn Episode No OBEpisode recorded.
--- OUTSIDE RECORDS SUMMARY | 2025-03-30 12:18 | XMS_ITS | Continuity of Care Document ---
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 Plan of Treatment Reminders Order Date Submit Date Provider Last Modified By Organization Details Last Modified Time Details Appointments None recorded. Lab urinalysis, dipstick [address] Infectious Disease -105, [address] [facility] [address], [place], [address], 14:18:52 CBC w/ diff 2024 025 [facility] (Registration ), [address] [facility], [place], [address], 16:11:55 CMP, serum or plasma 2024 025 [facility] (Registration ), [address] [facility], [place], [address], 5 15:39:03 ESR (erythrocyt e sedimentati on rate), blood [address] (Registration ), [address] [facility], [place], [address], 5 08:54:47 C-reactive protein, quantitativ e, serum or plasma 2024 025 [email or web address] [facility] (Registration ), [address], [place], [address], 08:54:48 culture, urine 2024 025 [facility], [address], [address], [place], [address], 19:09:52 Referral None recorded. Procedures None recorded. Surgeries None recorded. Imaging None recorded. Medication Orders None recorded. Patient TargetsNo targets recorded. Patient InstructionsNo instructions recorded. Reason for Referral None Reported. Results Created Date Observation Date Name Description Value Unit Range Abnormal Flag Note LastModifiedBy Organization Detail LastModifiedTime 02/24/2002/23/2025 urina lysis , dipst ick Leukocytes (reference range) trace Not Available [facility] Infectious Disease -[facility] [address] [facility] [address], [place], [address], 02/23/2025 14:16:48 02/24/20 25 02/23/2025 urina lysis , dipst ick Nitrite (reference range:) negati ve Not Available [facility] Infectious Disease -[facility] [address], [place], [address], 02/23/2025 14:16:48 02/24/20 25 02/23/2025 urina lysis , dipst ick Urobilinogen (reference range) 0.2 Not Available [facility] Infectious Disease -[facility] [address], [place], [address], 02/23/2025 14:16:48 02/24/20 25 02/23/2025 urina lysis , dipst ick Protein (reference range) negati ve Not Available [facility] Infectious Disease -[facility] [address] [facility] [address], [place], [address], 02/23/2025 14:16:48 02/24/20 25 02/23/2025 urina lysis , dipst ick pH (reference range 5-8.5) 6.0 Not Available [place] [address] [facility] [address], [place], [address], 02/23/2025 14:16:48 02/24/20 25 02/23/2025 urina lysis , dipst ick Blood (reference range:) small Not Available [place] [address] [address] [facility] [address], [place], [address], 02/23/2025 14:16:48 02/24/20 25 02/23/2025 urina lysis , dipst ick Specific [place] (reference range) 1.015 Not Available [place] [address] [address] [facility] [address], [place], [address], 02/23/2025 14:16:48 02/24/20 25 02/23/2025 urina lysis , dipst ick Ketone (reference range) negati ve Not Available [place] [address] [address] [facility] [address], [place], [address], 02/23/2025 14:16:48 02/24/20 25 02/23/2025 urina lysis , dipst ick Bilirubin (reference range) negati ve Not Available [place] [address] [address] [facility] [address], [place], [address], 02/23/2025 14:16:48 02/24/20 25 02/23/2025 urina lysis , dipst ick Glucose (reference range) 500 Not Available [place] [address] [address] [facility] [address], [place], [address], 02/23/2025 14:16:48 02/24/20 25 02/23/2025 urina lysis , dipst ick Color (reference range: yellow-brown ) Dark Yellow Not Available [facility] Infectious Disease -[address], [place], [address], 02/23/2025 14:16:48 Result Notes None recorded. Problems Name Problem SNOMED Code Status Onset Date Resolution Date Notes Provider Name and Address Organization Details Recorded Time Syncope 284989108 Active 2021 Malina Hernandez DO [address] [facility], [place], [address] , [place] - [facility] - [place] & [place] 15:33:04 Hypersomnia 43431006 Active 2021 Malina Hernandez DO [address] [facility], [place], [address] , [place] - [facility] - [place] & [place] 15:34:08 Problem Notes None recorded. Procedures Surgical History Date Name Laterality Status Provider Name and Address Organization Details Recorded Time 09/25/20 23 Cystoscopy-Female completed Silvio Valdez MD [address] [facility], [place], [address], [place] - [facility] - [place] & [place] 09/25/2023 15:26:11 04/04/20 22 Date of Last Pap Smear completed Vandana Dalla [place] - [facility] - [place] & [place] 10/03/2022 14:31:43 10/28/19 22 Consulting Project Director Surgery completed Vandana Dalla [place] - [facility] - [place] & [place] 10/03/2022 14:45:45 10/28/19 17 Cholecystectomy completed Vandana Dalla [place] - [facility] - [place] & [place] 10/03/2022 14:32:27 10/28/19 14 Other completed Vandana Dalla [place] - [facility] - [place] & [place] 10/03/2022 14:44:51 cardiac catheterization completed Vandana Dalla [place] - [facility] - [place] & [place] 10/03/2022 14:46:31 strabismus surgery completed Vandana Dalla [place] - [facility] - [place] & [place] 10/03/2022 14:55:15 Imaging Results None recorded. Procedure Notes None recorded. Medical Equipment None Reported. Allergies Allergen ID Allergen Name Allergen Category Reaction Reaction Severity Criticality Documentation Date Start Date Code Code System Note Provider Name and Address Organization Details Recorded Time 61009 aspirin medicatio n chest pain wheezing moderate severe Not available 10/02/2022 1191 RxNorm Vandana catherine, [facility] & [place] 2 09:22:42 34777 Bactrim medicatio n arthralgi a (joint pain) muscle cramps severe severe Not available 10/02/2022 79423 9 RxNorm Vandana catherine, RAFITA [place] [facility] & [place] 2 09:22:49 62753 insect venom environme nt confusion cough dizziness fever flushing headache wheezing moderate moderate moderate mild moderate moderate moderate Not available 10/02/2022 74615 UNK Vandana catherine, RAFITA [facility] & [place] 2 09:23:13 68575 Pneumococ georges vaccine Not available anaphylax is chest pain facial swelling nausea rash wheezing moderate moderate moderate moderate moderate moderate Not available 10/02/2022 65830 7 RxNorm Vandana catherine, RAFITA [place] [facility] & [place] 2 09:23:25 00376 rosuvasta tin medicatio n eye swelling facial swelling respirato ry distress moderate moderate moderate Not available 10/02/2022 41486 2 RxNorm Vandana catherine, RAFITA [place] [facility] & [place] 2 09:23:35 Medications Name [...] % 80 /min 98.6 [degF] 49.6 kg/m2 791664. 86 g 116 mm[Hg] 100 mm[Hg] Bianca Smith [place] - [facility] - [place] & [place] 5 13:59:18 Social History Question Answer Notes LastModified by Stadius Details LastModified Time Tobacco Smoking Status Never Smoker Vandana Harris [place], [place] - [facility] - [place] & [place] 10/03/2022 14:32:09 Do You Have An Advance Directive? No Information not available 10/03/2022 Are You Blind Or Do You Have Difficulty Seeing? No Information not available 10/03/2022 What Was The Date Of Your Most Recent Tobacco Screening? 09/17/2022 Information not available 10/03/2022 Do You Have Any Pets? Yes [email or web address] Information not available 09/25/2023 Are You Passively Exposed To Smoke? No Information not available 10/03/2022 Are You Currently In School? No [employer] [email or web address] Information not available 09/25/2023 Sex: Female Functional Status Question Answer Note LastModified by Stadius Details LastModified Time Do you use any [...] anxious, or unable to sleep at night)? 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 Will send urine off for a culture. Will see patient back in 1 week. Health Concerns Section Related Observation LastModified by Organization Detai ls LastModified Time None Recorded Concern Status LastModified by Organization Details LastModified Time None Recorded Payers Encounter Date Sequence Insurance Name Policy Number Policy Valdivia Covered Member ID Valdivia Member ID Guarantor Name 02/23/2025 1 [facility] (MEDICAID HMO) Lissy Valdez [id number] Lissy Valdez Notes Date Note Type Note [...] 2025. Marilou David, PREETI [address], [place], [address], [facility] - [place] & [place] 02/24/2025 10:59:38 OBGyn Episode No OBEpisode recorded.
[2025-03-30 12:24] VITALS: BP 113/72; PULSE 52; RESP 16; TEMP 36.8; O2SAT 97
[2025-03-30] MEDS: SODIUM CHLORIDE 0.9% 10ML FLUSH SYRINGE 10 ML IV (12:24)
[2025-03-30] MEDS: ERTAPENEM SODIUM 1 GM in 0.9 % SODIUM CHLORIDE 50 ML IV (12:24)
[2025-03-30] MEDS: SODIUM CHLORIDE 0.9% 50ML BAG 50 ML IV (12:24)
[2025-03-30 13:02] VITALS: BP 128/69; PULSE 58; RESP 16; TEMP 36.8; O2SAT 97
== END 2025-03-30 13:05 | disposition home or self-care (01) ==
LOC: INF 12:17
PROVIDERS: PCP Internal Medicine; Visit Provider Internal Medicine
DX: N12 Tubulo-interstitial nephritis, not specified as acute or chronic (principal); B96.4 Proteus (mirabilis) (morganii) as the cause of diseases classified elsewhere; Z16.24 Resistance to multiple antibiotics
CPT/HCPCS: 96365; J1335

== ENCOUNTER 2025-04-01 12:07 | Outpatient (CLI) | payer OTHER, SELFPAY ==
--- OUTSIDE RECORDS SUMMARY | 2025-04-01 12:09 | XMS_ITS | Data Portability ---
Author Organization [facility] Mahamed morgan, [facility] Address [address] [facility] [address] [place] [address] Assessment No assessment recorded. Plan of Treatment Reminders Order Date Submit Date Provider Last Modified By Organization Details Last Modified Time Details Appointments None recorded. Lab None recorded. Referral aquatic therapy referral 2017 018 2 Not available 8 11:14:18 [facility] 2017 018 [facility] [address] [facility], [address], [place], [address], 8 11:14:19 occupationa l therapist referral 2017 018 2 Not available 8 11:14:17 Procedures None recorded. Surgeries None recorded. Imaging None recorded. Medication Orders None recorded. Patient TargetsNo targets recorded. Patient Instructions Encounter Date Encounter Id Patient Instructions Last Modified By Organization Details Last Modified Time 08/13/2018 [id number] learning about healthy weight Not available 08/13/2018 [...] Name and Address Organization Details Recorded Time [id number] aspirin medicatio n Not available Not available Not available 08/13/2018 1191 RxNorm Melinda Hudson [facility] 8 10:01:54 Medications Name Sig [...] Address Organization Details Last Updated DateTime 8 795956. 12 g 48.2 kg/m2 160.02 cm 18 /min 61 /min 132 mm[Hg] 96 mm[Hg] Melinda Hudson [facility] 8 10:06:40 Social History Question Answer Notes LastModified by Organizat ion Details LastModified Time Tobacco Smoking Status Never Smoker Melinda Hudson [facility] 08/13/2018 10:02:03 What Was The Date Of Your Most Recent Tobacco Screening? 08/13/2018 Information n ot available 12/15/2019 Sex: Unknown Functional Status None recorded. Mental Status None recorded. Family History Relationship Description Onset Age of this Age Resolved Age Notes LastModified by Organization Details LastModified Time Father No current problems or disability [email or web address] Not available 08/13 10:02:01 Mother No current problems or disability [email or web address] Not available 08/13 10:02:01 Medical History Condition [...] SNOMED-CT Code Diagnosis ICD10 Code Diagnosis Note [id number] CLIFF BARBER MD RHE[facility]AT[facility] [address] [place] [address] 08/13/2018 09:13:44 08/13/2018 10:48:47 Pain of multiple joints 09947446 M25.50 she has clinical features of Dixon OA. no features of an inflammato ry arthritis noted. no features of rheumatoid noted. 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 would suggest to avoid steroids and start OT as stated below. she can RTC with me as prn. 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 [...] [facility]MEDICAID HMO[id number] 01/24/2024 1 [place] - [place] CHOICES - FFS/TRADITIO NAL Lissy [place] [id number] Liss[facility] 02/04/2024 1 [facility] (MEDICAID HMO) [facility] [id number] [facility] 01/31/2024 1 [facility] (PPO) [id number] Liss[facility] [id number] 01 Liss[facility] Notes Date Note Type Note [...] and a normal TSH. CLIFF BARBER MD [facility] [place], [address], [facility] 08/13/2018 17:00:47 OBGyn Episode No OBEpisode recorded.
--- OUTSIDE RECORDS SUMMARY | 2025-04-01 12:10 | XMS_ITS | Data Portability ---
Author Organization [facility] [place] [facility] [place] Alejandro ADMIN Address [address] [place] [address] Care Team Providers Care Assistant Athletic Trainer Name Role Phone ZAHRAA BENAVIDES Primary Care Provider [phone] Assessment Encounter Date Assessment Date Assessment LastModified by Organization Details LastModified Time 08/07/2023 08/07/[address] scan images onto our system. Will review to determine the degree of stone burden bilaterally in the kidneys. Will also plan cystoscopy and pelvic exam in the office in the near future. [email or web address] Not available 08/07/2023 15:34:46 09/25/2023 09/25/2023 I [...] in 6 months with KUB and UA. [email or web address] Not available 09/25/2023 15:29:09 Plan of Treatment Reminders Order Date Submit Date Provider Last Modified By Organization Details Last Modified Time Details Appointments None recorded. Lab urinalysis, dipstick 2024 025 [email or web address] [facility] Infectious Disease -105, [address], [place], [address], 5 14:18:52 CBC w/ diff 2024 025 [facility] (Registration ), [address], [place], [address], 5 16:11:55 CMP, serum or plasma 2024 025 [facility] (Registration ), [address], [place], [address], 5 15:39:03 ESR (erythrocyt e sedimentati on rate), blood [address] (Registration ), [address] [facility], [place], [address], 5 08:54:47 C-reactive protein, quantitativ e, serum or plasma [address] (Registration ), [address], [place], [address], 5 08:54:48 culture, urine 2024 025 [place] [facility], [address], [address], [place], [address], 5 19:09:52 urinalysis, dipstick 2022 023 [email or web address] [facility], [address] [facility], [address], [place], [address], 3 16:08:29 Referral None recorded. Procedures None [...] usal 7.7 - 58.5 Perfo rmed at: [facility] [address] [place] [address] 1269 Lab Direc tor: Los carson PhD, Phone : [phone] Not Available [facility] ([facility]) [address] [facility], [place], [address], 04/03/2023 10:13:10 04/02/20 23 04/03/2023 FSH FSH, serum 5.4 mIU/m L Adult Femal e: Folli cular phase 3.5 - 12.5 Ovula tion phase 4.7 - 21.5 Lutea l phase 1.7 - 7.7 Postm enopa usal 25.8 - 134.8 Perfo rmed at: [facility] [address] [place] [address] Lab Direc tor: Los carson PhD, Phone : [phone] Not Available [facility] ([facility]) [address] [facility], [place], [address], 04/03/2023 10:14:16 08/07/20 23 08/07/2023 urina lysis , dipst ick Leukocytes (reference range) trace Not Available [facility] [address] [facility] [address] [place] [address], [address], 08/07/2023 15:15:15 08/07/2008/07/2023 urina lysis , dipst ick Nitrite (reference range:) negati ve Not Available [facility] [address] [facility] [address], [place], [address], 08/07/2023 15:15:15 08/07/20 23 08/07/2023 urina lysis , dipst ick Urobilinogen (reference range) 0.2 Not Available [facility] [address] [place] [address] [address], [place], [address], 08/07/2023 15:15:15 08/07/2008/07/2023 urina lysis , dipst ick Protein (reference range) negati ve Not Available [facility] [address], [place], [address], 08/07/2023 15:15:15 08/07/2008/07/2023 urina lysis , dipst ick pH (reference range 5-8.5) 6.0 Not Available [facility] [address], [place], [address], 08/07/2023 15:15:15 08/07/2008/07/2023 urina lysis , dipst ick Blood (reference range:) small Not Available [facility] [address] [place] [address] [address], [place], [address], 08/07/2023 15:15:15 08/07/2008/07/2023 urina lysis , dipst ick Specific [place] (reference range) 1.015 Not Available [facility] [address], [place], [address], 08/07/2023 15:15:15 08/07/2008/07/2023 urina lysis , dipst ick Ketone (reference range) negati ve Not Available [address], [place], [address], 08/07/2023 15:15:15 08/07/2008/07/2023 urina lysis , dipst ick Bilirubin (reference range) negati ve Not Available [address], [place], [address], 08/07/2023 15:15:15 08/07/20 23 08/07/2023 urina lysis , dipst ick Glucose (reference range) 250 Not Available [facility] [address] [facility] [address], [place], [address], 08/07/2023 15:15:15 08/07/20 23 08/07/2023 urina lysis , dipst ick Color (reference range: yellow-brown ) Yellow Not Available [facility] [address] [facility] [address], [place], [address], 08/07/2023 15:15:15 02/24/20 25 02/23/2025 CBC AUTO W DIFF WBC 11.3 K/uL 4.0-10 .5 high Not Available [facility] ([facility]) [address] [facility], [place], [address], 02/23/2025 15:02:28 02/24/20 25 02/23/2025 CBC AUTO W DIFF RBC 5.7 M/mm3 4.2-6. 4 Not Available [facility] ([facility]) [address], [place], [address], 02/23/2025 15:02:28 02/24/20 25 02/23/2025 CBC AUTO W DIFF HGB 15.8 gm/dL 12.5-1 6.0 Not Available [facility] ([facility]) [address] [facility], [place], [address], 02/23/2025 15:02:28 02/24/20 25 02/23/2025 CBC AUTO W DIFF HCT 48.8 % 37.0-4 7.0 high Not Available [facility] ([facility]) [address], [place], [address], 02/23/2025 15:02:28 02/24/20 25 02/23/2025 CBC AUTO W DIFF MCV 86.4 fL 78-100 Not Available [facility] ([facility]) [address], [place], [address], 02/23/2025 15:02:28 02/24/20 25 02/23/2025 CBC AUTO W DIFF MCH 28.0 pg 27-31 Not Available [facility] ([facility]) [address], [place], [address], 02/23/2025 15:02:28 02/24/20 25 02/23/2025 CBC AUTO W DIFF MCHC 32.4 g/dL 32-36 Not Available [facility] ([facility]) [address], [place], [address], 02/23/2025 15:02:28 02/24/20 25 02/23/2025 CBC AUTO W DIFF RDW 13.7 % 11.5-1 4.0 Not Available [facility] ([facility]) [address], [place], [address], 02/23/2025 15:02:28 02/24/20 25 02/23/2025 CBC AUTO W DIFF platelet count 380 K/uL 150-45 0 Not Available [facility] ([facility]) [address], [place], [address], 02/23/2025 15:02:28 02/24/20 25 02/23/2025 CBC AUTO W DIFF MPV 10.3 fL 6-9.5 high Not Available [facility] ([facility]) [address], [place], [address], 02/23/2025 15:02:28 02/24/20 25 02/23/2025 CBC AUTO W DIFF neutrophil% 66.5 % 43-65 high Not Available [facility] ([facility]) [address], [place], [address], 02/23/2025 15:02:28 02/24/20 25 02/23/2025 CBC AUTO W DIFF lymphocyte% 24.3 % 20.5-4 5.5 Not Available [facility] ([facility]) [address], [place], [address], 02/23/2025 15:02:28 02/24/20 25 02/23/2025 CBC AUTO W DIFF monocyte% 6.0 % 5.5-11 .7 Not Available [facility] ([facility]) [address], [place], [address], 02/23/2025 15:02:02/24/20 25 02/23/2025 CBC AUTO W DIFF eosinophil% 2.3 % 0.9-2. 9 Not Available [facility] ([facility]) [address] [facility], [place], [address], 02/23/2025 15:02:28 02/24/20 25 02/23/2025 CBC AUTO W DIFF basophil% 0.6 % 0.2-1. 0 Not Available [facility] ([facility]) [address] [place], [address], 02/23/2025 15:02:28 02/24/20 25 02/23/2025 CBC AUTO W DIFF immature granulocytes % 0.3 % 0.0-0. 8 Not Available [facility] ([facility]) [address] [place], [address], 02/23/2025 15:02:28 02/24/20 25 02/23/2025 CBC AUTO W DIFF nucleated red blood cells % 0.0 % Not Available [facility] ([facility]) [address] [place], [address], 02/23/2025 15:02:28 02/24/20 25 02/23/2025 CBC AUTO W DIFF neutrophil# 7.5 K/uL 2.2-4. 8 high Not Available [facility] ([facility]) [address] [facility], [place], [address], 02/23/2025 15:02:28 02/24/20 25 02/23/2025 CBC AUTO W DIFF lymphocyte# 2.7 cell/ mcL 1.3-2. 9 Not Available [facility] ([facility]) [address], [place], [address], 02/23/2025 15:02:28 02/24/20 25 02/23/2025 CBC AUTO W DIFF monocyte# 0.7 cell/ mcL 0.3-0. 8 Not Available [facility] ([facility]) [address] [facility], [place], [address], 02/23/2025 15:02:28 02/24/20 25 02/23/2025 CBC AUTO W DIFF eosinophil# 0.3 cell/ mcL 0-0.2 high Not Available [facility] ([facility]) [address] [facility], [place], [address], 02/23/2025 15:02:28 02/24/20 25 02/23/2025 CBC AUTO W DIFF basophil# 0.1 cell/ mcL 0.0-1. 0 Not Available [facility] ([facility]) [address] [facility], [place], [address], 02/23/2025 15:02:28 02/24/20 25 02/23/2025 CBC AUTO W DIFF immature gramulocytes # 0.03 K/uL Not Available [facility] ([facility]) [address] [facility], [place], [address], 02/23/2025 15:02:28 02/24/20 25 02/23/2025 CBC AUTO W DIFF nucleated red blood cells # 0.00 K/uL Not Available [facility] ([facility]) [address] [facility], [place], [address], 02/23/2025 15:02:28 04/29/02/23/2025 CBC AUTO W DIFF manual differential NO Not Available [facility] ([facility]) [address], [place], [address], 02/23/2025 15:02:28 02/24/20 25 02/23/2025 COMP METAB OLIC PANEL sodium 138 mmol/ L 136-14 5 Not Available [facility] ([facility]) [address], [place], [address], 02/23/2025 15:39:03 02/24/20 25 02/23/2025 COMP METAB OLIC PANEL potassium 3.7 mmol/ L 3.6-5. 0 Not Available [facility] ([facility]) [address] , [place], [address], 02/23/2025 15:39:03 02/24/20 25 02/23/2025 COMP METAB OLIC PANEL chloride 98 mmol/ L 98-107 Not Available [facility] ([facility]) [address] , [place], [address], 02/23/2025 15:39:03 02/24/20 25 02/23/2025 COMP METAB OLIC PANEL carbon dioxide 26.8 mmol/ L 21.0-3 2.0 Not Available [facility] ([facility]) [address] , [place], [address], 02/23/2025 15:39:03 02/24/20 25 02/23/2025 COMP METAB OLIC PANEL anion gap 16.9 Not Available [facility] ([facility]) [address] [place], [address], 02/23/2025 15:39:03 02/24/20 25 02/23/2025 COMP METAB OLIC PANEL glucose 200 mg/dL 70-120 high Not Available [facility] ([facility]) [address], [place], [address], 02/23/2025 15:39:03 02/24/20 25 02/23/2025 COMP METAB OLIC PANEL BUN 12 mg/dL 7-18 Not Available [facility] ([facility]) [address], [place], [address], 02/23/2025 15:39:03 02/24/20 25 02/23/2025 COMP METAB OLIC PANEL creatinine 1.1 mg/dL 0.6-1. 3 Not Available [facility] ([facility]) [address], [place], [address], 02/23/2025 15:39:03 02/24/20 25 02/23/2025 COMP METAB [...] brown ing kiney funct ion. Not Available [facility] ([facility]) [address] , [place], [address], 02/23/2025 15:39:03 02/24/20 25 02/23/2025 COMP METAB OLIC PANEL osmolality (calculated) 293 mOsm/ kg 275-30 1 OSMOL ALITY IS A CALCU LATIO N UTILI ZING THE SERUM /PLAS MA SODIU M, GLUCO SE AND UREA NITRO GEN (BUN) LEVEL S. FOR THE MOST ACCUR ATE RESUL T A MEASU RED SERUM OSMOL ALITY IS SUGGE STED. Not Available [facility] ([facility]) [address], [place], [address], 02/23/2025 15:39:03 02/24/20 25 02/23/2025 COMP METAB OLIC PANEL total protein 8.1 g/dL 6.4-8. 2 Not Available [facility] ([facility]) [address] , [place], [address], 02/23/2025 15:39:03 02/24/20 25 02/23/2025 COMP METAB OLIC PANEL albumin 3.6 g/dL 3.4-5. 0 Not Available [facility] ([facility]) [address] , [place], [address], 02/23/2025 15:39:03 02/24/20 25 02/23/2025 COMP METAB OLIC PANEL globulin 4.5 Not Available [facility] ([facility]) [address], [place], [address], 02/23/2025 15:39:03 02/24/20 25 02/23/2025 COMP METAB OLIC PANEL alb/glob ratio 0.8 0.7-2 Not Available [facility] ([facility]) [address], [place], [address], 02/23/2025 15:39:03 02/24/20 25 02/23/2025 COMP METAB OLIC PANEL calcium 10.2 mg/dL 8.5-10 .5 Not Available [facility] ([facility]) [address], [place], [address], 02/23/2025 15:39:03 02/24/20 25 02/23/2025 COMP METAB OLIC PANEL bilirubin total 0.60 mg/dL 0.10-1 .00 Not Available [facility] ([facility]) [address] [place], [address], 02/23/2025 15:39:03 02/24/20 25 02/23/2025 COMP METAB OLIC PANEL AST (SGOT) 46 U/L 0-37 high Not Available [facility] ([facility]) [address], [place], [address], 02/23/2025 15:39:03 02/24/20 25 02/23/2025 COMP METAB OLIC PANEL ALT (SGPT) 78 U/L 0-65 high Not Available [facility] ([facility]) [address], [place], [address], 02/23/2025 15:39:03 02/24/20 25 02/23/2025 COMP METAB OLIC PANEL alk phosphatase 111 U/L 46-116 Not Available [facility] ([facility]) [address] [facility], [place], [address], 02/23/2025 15:39:03 02/24/20 25 02/23/2025 C-KARLI CTIVE PROTE IN (CRP) C-reactive protein, quant 2.0 mg/dL 0.05-0 .300 high Not Available [facility] ([facility]) [address] [facility], [place], [address], 02/23/2025 15:40:11 02/24/20 25 02/23/2025 SED RATE sed rate auto 9 0-20 Not Available [facility] ([facility]) [address] [facility], [place], [address], 02/23/2025 15:43:35 02/24/20 25 02/27/2025 URINE CULTU RE,CO MPREH ENSIV E urine culture,comp rehensive FINAL REPORT abnormal Not Available [facility] ([facility]) [address] [facility], [place], [address], 02/27/2025 19:09:52 02/24/20 25 02/27/2025 URINE CULTU [...] per mL Not Available [facility] ([facility]) [address] [facility], [place], [address], 02/27/2025 19:09:52 02/24/2002/27/2025 URINE CULTU RE,CO MPREH [...] rolin e Not Available [facility] ([facility]) [address] [facility], [place], [address], 02/27/2025 19:09:52 02/24/2002/27/2025 URINE CULTU RE,CO MPREH [...] R S Not Available [facility] ([facility]) [address] [facility], [place], [address], 02/27/2025 19:09:52 02/24/20 25 02/23/2025 urina lysis , dipst ick Leukocytes (reference range) trace Not Available [place] [address], [place], [address], 02/23/2025 14:16:48 02/24/20 25 02/23/2025 urina lysis , dipst ick Nitrite (reference range:) negati ve Not Available [place] [address] [address] [facility] [address], [place], [address], 02/23/2025 14:16:48 02/24/20 25 02/23/2025 urina lysis , dipst ick Urobilinogen (reference range) 0.2 Not Available [place] [address] [address] [facility] [address], [place], [address], 02/23/2025 14:16:48 02/24/20 25 02/23/2025 urina lysis , dipst ick Protein (reference range) negati ve Not Available [place] [address] [address] [facility] [address], [place], [address], 02/23/2025 14:16:48 02/24/20 25 02/23/2025 urina lysis , dipst ick pH (reference range 5-8.5) 6.0 Not Available [place] [address] [address] [facility] [address], [place], [address], 02/23/2025 14:16:48 02/24/20 25 02/23/2025 urina lysis , dipst ick Blood (reference range:) small Not Available [place] [address] [address] [facility] [address], [place], [address], 02/23/2025 14:16:48 02/24/20 25 02/23/2025 urina lysis , dipst ick Specific [place] (reference range) 1.015 Not Available [place] [address] [address] [facility] [address], [place], [address], 02/23/2025 14:16:48 02/24/20 25 02/23/2025 urina lysis , dipst ick Ketone (reference range) negati ve Not Available [place] [address] [address] [facility] [address], [place], [address], 02/23/2025 14:16:48 02/24/20 25 02/23/2025 urina lysis , dipst ick Bilirubin (reference range) negati ve Not Available [place] [address] [address] [facility] [address], [place], [address], 02/23/2025 14:16:48 02/24/20 25 02/23/2025 urina lysis , dipst ick Glucose (reference range) 500 Not Available [place] [address] [address] [facility] [address], [place], [address], 02/23/2025 14:16:48 02/24/20 25 02/23/2025 urina lysis , dipst ick Color (reference range: yellow-brown ) Dark Yellow Not Available [place] [address] [address] [facility] [address], [place], [address], 02/23/2025 14:16:48 Result Notes None recorded. Problems Name Problem SNOMED Code Status Onset Date Resolution Date Notes Provider Name and Address Organization Details Recorded Time Syncope 701062728 Active 2021 Malina Hernandez DO [address], [place], [address] , [facility] - [facility] - [place] & [place] 15:33:04 Hypersomnia 22815101 Active 2021 Malina Hernandez DO [address] [facility], [place], [address] , [place] - [facility] & [place] 15:34:08 Problem Notes None recorded. Procedures Surgical History Date Name Laterality Status Provider Name and Address Organization Details Recorded Time 09/25/20 23 Cystoscopy-Female completed Silvio Valdez MD [address] [facility], [place], [address], [place] - [facility] - [place] & [place] 09/25/2023 15:26:11 04/04/20 22 Date of Last Pap Smear completed Vandana Eugenioa [place] - [facility] - [place] & [place] 10/03/2022 14:31:43 10/28/19 22 Sole Assessor Surgery completed Vandana Dalla [place] - [facility] - [place] & [place] 10/03/2022 14:45:45 10/28/19 17 Cholecystectomy completed Vandana Dalla [place] - [facility] & [place] 10/03/2022 14:32:27 10/28/19 14 Other completed Vandana Dalla [place] - [facility] - [place] & [place] 10/03/2022 14:44:51 cardiac catheterization completed Vandana Dalla [place] - [facility] & [place] 10/03/2022 14:46:31 strabismus surgery completed Vandana Dalla [place] - [facility] - [place] & [place] 10/03/2022 14:55:15 Imaging Results None recorded. Procedure Notes None recorded. Medical Equipment None Reported. Allergies Allergen ID Allergen Name Allergen Category Reaction Reaction Severity Criticality Documentation Date Start Date Code Code System Note Provider Name and Address Organization Details Recorded Time 22239 aspirin medicatio n chest pain wheezing moderate severe Not available 10/02/2022 1191 RxNorm Vandana Eugenioa null, [place] - [facility] & [place] 09:22:42 61219 Bactrim medicatio n arthralgi a (joint pain) muscle cramps severe severe Not available 10/02/2022 79316 9 RxNorm Vandana Eugenioa null, [place] - [facility] & [place] 09:22:49 92510 insect venom environme nt confusion cough dizziness fever flushing headache wheezing moderate moderate moderate mild moderate moderate moderate Not available 10/02/2022 98210 UNK Vandana catherine, [facility] - [facility] & [place] 2 09:23:13 88059 Pneumococ georges vaccine Not available anaphylax is chest pain facial swelling nausea rash wheezing moderate moderate moderate moderate moderate moderate Not available 10/02/2022 36743 7 RxNorm Vandana catherine, [facility] - [place] [facility] & [place] 2 09:23:25 91518 rosuvasta tin medicatio n eye swelling facial swelling respirato ry distress moderate moderate moderate Not available 10/02/2022 65939 2 RxNorm Vandana catherine, [facility] - [facility] & [place] 2 09:23:35 Medications Name Sig Start Date [...] % 80 /min 98.6 [degF] 49.6 kg/m2 501038. 86 g 116 mm[Hg] 100 mm[Hg] Bianca Smith [place] - [facility] 5 13:59:18 Date Recorded Body height Heart rate Oxygen saturation Oxygen saturation in Arterial blood by Pulse oximetry Heart rate Body temperature Body mass index (BMI) Body weight Systolic blood pressure Diastolic blood pressure Provider Name and Address Organization Details Last Updated DateTime 5 160.02 cm 60 /min 97 % 97 % 60 /min 97.7 [degF] 49.6 kg/m2 271594. 86 g 119 mm[Hg] 79 mm[Hg] Bianca ELLER - [facility] 5 13:31:54 Date Recorded Body height Body temperature Oxygen saturation Oxygen saturation in Arterial blood by Pulse oximetry Inhaled oxygen flow rate Heart rate Body mass index (BMI) Body weight Systolic blood pressure Diastolic blood pressure Provider Name and Address Organization Details Last Updated DateTime 3 157.48 cm 97.1 [degF] 98 % 98 % 2 L/min 89 /min 48.3 kg/m2 270062. 39 g 128 mm[Hg] 98 mm[Hg] Phillip Morrison [facility] & [place] 3 13:04:48 Date Recorded Body height Body mass index (BMI) Body weight Systolic blood pressure Diastolic blood pressure Provider Name and Address Organization Details Last Updated DateTime 08/07/2023 157.48 cm 49.4 kg/m2 453383.9 4 g 125 mm[Hg] 75 mm[Hg] Britney Yee [facility] & [place] 3 15:05:24 Date Recorded Body height Body mass index (BMI) Body weight Systolic blood pressure Diastolic blood pressure Provider Name and Address Organization Details Last Updated DateTime 09/25/2023 157.48 cm 51.2 kg/m2 656505.8 6 g 126 mm[Hg] 76 mm[Hg] Ioana Ayala [facility] & [place] 3 15:07:04 Social History Question Answer Notes LastModified by [employer] ion Details LastModified Time Tobacco Smoking Status Never Smoker [facility] & [place] 10/03/2022 14:32:09 Do You Have An Advance Directive? No Information not available 10/03/2022 Are You Blind Or Do You Have Difficulty Seeing? No Information not available 10/03/2022 What Was The Date Of Your Most Recent Tobacco Screening? 09/17/2022 Information not available 10/03/2022 Do You Have Any Pets? Yes [email or web address] Information not available 09/25/2023 Are You Passively Exposed To Smoke? No Information not available 10/03/2022 Are You Currently In School? No [employer] [email or web address] Information not available 09/25/2023 Sex: Female Functional Status Question Answer Note LastModified by Organizat ion Details LastModified Time Do you use any illicit or recreational drugs? No Information not available 10/03/2022 What is your level of alcohol consumption? 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 Occasional Information not available 10/03/2022 Mental Status Question Answer Note LastModified by Organization D etails LastModified Time Do you feel stressed (tense, restless, nervous, or anxious, or unable to sleep at night)? [id number] Information not available 10/03/2022 Family History Relationship [...] SNOMED-CT Code Diagnosis ICD10 Code Diagnosis Note [id number] [facility] [address] [facility] [place] [address] 10/03/2022 14:07:23 10/03/2022 15:38:25 Syncope [id number] R55 She has been experienci ng these stereotypi georges passing out episodes for five years. No definite witnessed convulsion s but some associated brief confusion afterwards .will order EEG to rule out neurologic causes of syncope Hypersomnia [id number] G47 .10 She describes some significan t episodes of pathologic al sleepiness . She will fall asleep without warning in the middle of talking. This is very infrequent but can be suggestive of narcolepsy . Will order PSG with MSLT to evaluate this in more detail. [id number] Micheline Lackey MD [facility] General Surgery [address] [place] [address],[address] [place] [address] 04/02/2023 12:53:55 04/02/2023 13:53:12 Pelvic mass [id number] R19.00 Possible lymphocele versus ovarian remnant from [...] patient with lab levels and consider further PROCUREMENT ANALYST follow up. [id number] Silvio Valdez MD [facility] Urology [address] [place] [address],[address] [place] [address] 08/07/2023 14:35:57 08/07/2023 15:40:17 Recurrent urinary tract infection [id number] N39.0 Kidney stone 82128694 N2 0.0 Chronic th oracic back pain 5101127498 00568 M54.6 Microscopic hematuria 19 1971608 R31.29 [id number] Silvio Valdez MD [facility] Urology [address] [place] [address],[address] [place] [address] 09/25/2023 14:26:57 09/25/2023 15:25:02 Recurrent urinary tract infection 770014005 N39.0 Kidney stone 56217032 N2 0.0 Microscopic hematuria 19 7912273 R31.29 [id number] [facility] [address] [facility] [address] [place] [address] 02/23/2025 13:48:33 02/23/2025 14:17:11 Recurrent urinary tract infection 079354769 N39.0 Will check lab work. Will send urine off for a culture. Will see patient back in 1 week. 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 Patient will follow up in 2 weeks. Call the office if anything persists or worsens. 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 see above Health Concerns Section Related Observation LastModified by Organization Detai ls LastModified Time None Recorded Concern Status LastModified by Organization Details LastModified Time None Recorded Advance Directives Directive N: Payers Insurance Date Sequence Insurance Name Policy Number Policy Valdivia Covered Member ID Valdivia Member ID Guarantor Name 09/18/2023 1 [employer] [facility] (POS II) [facility] [id number] [facility] 02/27/2025 1 [facility] (MEDICAID HMO) [facility] [id number] [facility] Notes Date Note Type Note Provider Name [...] time. Patient states she is seen her top icer for this, was told it is possibly a lymphocele. Micheline Lackey MD [address] [facility], [place], [address], [facility] - [place] & [place] 04/18/2023 12:50:43 08/07/2023 text/html Location: Histor y [...] status post hysterectomy. Silvio Valdez MD [address] [facility], [place], [address], [facility] - [facility] - [place] & [place] 08/07/2023 15:35:17 09/25/2023 text/html Patient returns to [...] hysterectomy. Silvio Valdez MD [address], [place], [address], [facility] & [place] 09/25/2023 15:30:10 02/23/2025 text/html patient presents to [...] 2025. Marilou David APRN [address], [place], [address], [facility] & [place] 02/24/2025 10:59:38 03/02/2025 text/html patient presents to clinic for follow up. Urine culture results received. Patient denies any fever. She is scheduled to have surgery to remove her stone on . Marilou David APRN [address], [place], [address], [facility] - [facility] & [place] 03/02/2025 13:35:40 OBGyn Episode No OBEpisode recorded.
--- OUTSIDE RECORDS SUMMARY | 2025-04-01 12:10 | XMS_ITS | Continuity of Care Document ---
Author Organization [facility] [place] Infectious Disease -[address] [place] [address] Care Team Providers Care Marshmallow Runner Name Role Phone ZAHRAA BENAVIDES Primary Care [...] and Address Organization Details Recorded Time Syncope 202987428 Active 2021 Malina Hernandez DO [address], [place], [address] , [facility] & [place] 2 15:33:04 Hypersomnia 39171914 Active 2021 Malina Hernandez DO [address], [place], [address] [facility] & [place] 2 15:34:08 Problem Notes None recorded. Procedures Surgical History Date Name Laterality Status Provider Name and Address Organization Details Recorded Time 09/25/20 23 Cystoscopy-Female completed Silvio Valdez MD [address] , [place], [address], [facility] & [place] 09/25/2023 15:26:11 04/04/20 22 Date of Last Pap Smear completed Vandana Harris [facility] & [place] 10/03/2022 14:31:43 10/28/19 22 Wafer Cutter Surgery completed Vandana ELLER - [facility] - [place] & [place] 10/03/2022 14:45:45 10/28/19 17 Cholecystectomy completed Vandana ELLER - [facility] & [place] 10/03/2022 14:32:27 10/28/19 14 Other completed Vandana ELLER - [facility] & [place] 10/03/2022 14:44:51 cardiac catheterization completed Vandana ELLER - [facility] & [place] 10/03/2022 14:46:31 strabismus surgery completed Vandana ELLER - [facility] & [place] 10/03/2022 14:55:15 Imaging Results None recorded. Procedure Notes None recorded. Medical Equipment None Reported. Allergies Allergen ID Allergen Name Allergen Category Reaction Reaction Severity Criticality Documentation Date Start Date Code Code System Note Provider Name and Address Organization Details Recorded Time 80582 aspirin medicatio n chest pain wheezing moderate severe Not available 10/02/2022 1191 RxNorm Vandana catherine, RAFITA - [facility] & [place] 09:22:42 59496 Bactrim medicatio n arthralgi a (joint pain) muscle cramps severe severe Not available 10/02/2022 94577 9 RxNorm Vandana catherine, RAFITA - [facility] & [place] 09:22:49 13037 insect venom environme nt confusion cough dizziness fever flushing headache wheezing moderate moderate moderate mild moderate moderate moderate Not available 10/02/2022 17985 UNK Vandana catherine, RAFITA - [facility] & [place] 09:23:13 58104 Pneumococ georges vaccine Not available anaphylax is chest pain facial swelling nausea rash wheezing moderate moderate moderate moderate moderate moderate Not available 10/02/2022 51428 7 RxNorm Vandana Steven null, [place] - [facility] & [place] 09:23:25 43063 rosuvasta tin medicatio n eye swelling facial swelling respirato ry distress moderate moderate moderate Not available 10/02/2022 50619 2 RxNorm RAFITA Reed - [facility] - [place] & [place] 2 09:23:35 Medications Name Sig Start Date [...] % 60 /min 97.7 [degF] 49.6 kg/m2 403157. 86 g 119 mm[Hg] 79 mm[Hg] Bianca Smith [facility] & [place] 13:31:54 Social History Question Answer Notes LastModified by Organizat ion Details LastModified Time Tobacco Smoking Status [facility] [place] 10/03/2022 14:32:09 Do You Have An Advance Directive? No Information not available 10/03/2022 Are You Blind Or Do You Have Difficulty Seeing? No Information not available 10/03/2022 What Was The Date Of Your Most Recent Tobacco Screening? 09/17/2022 Information not available 10/03/2022 Do You Have Any Pets? Yes [email or web address] Information not available 09/25/2023 Are You Passively Exposed To Smoke? No Information not available 10/03/2022 Are You Currently In School? No [employer] [email or web address] Information not available 09/25/2023 Sex: Female Functional Status Question Answer Note LastModified by Organizat ion Details LastModified Time Do you use any illicit or recreational drugs? No Information not available 10/03/2022 What is your level of alcohol consumption? 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 Occasional Information not available 10/03/2022 Mental Status Question Answer Note LastModified by Organization D etails LastModified Time Do you feel stressed (tense, restless, nervous, or anxious, or unable to sleep at night)? [id number] Information not available 10/03/2022 Family History Relationship [...] SNOMED-CT Code Diagnosis ICD10 Code Diagnosis Note [id number] [facility] -[address] [address] 02/23/2025 13:48:33 02/23/2025 14:17:11 Recurrent urinary tract infection 577420745 N39.0 Will check lab work. Will send urine off for a culture. Will see patient back in 1 week. 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 Patient will follow up in 2 weeks. Call the office if anything persists or worsens. 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 Urine culture results received. Patient denies any fever. She is scheduled to have surgery to remove her stone on . Marilou David, MARKET RESEARCH MANAGER [address], [place], [address], [place] - [facility] - [place] & [place] 03/02/2025 13:35:40 OBGyn Episode No OBEpisode recorded.
--- OUTSIDE RECORDS SUMMARY | 2025-04-01 12:10 | XMS_ITS | Continuity of Care Document ---
Author Organization [facility] Infectious Disease -105 Address [address] [facility] [address] [place] [address] Care Team Providers Care Button Tufter Name Role Phone SHERI BENAVIDESGHT Primary Care Provider Assessment No assessment recorded. Plan of Treatment Reminders Order Date Submit Date Provider Last Modified By Organization Details Last Modified Time Details Appointments None recorded. Lab urinalysis, dipstick [address] Infectious Disease -105, [address] [facility] [address], [place], [address], 14:18:52 CBC w/ diff 2024 025 [facility] (Registration ), [address] [facility], [place], [address], 16:11:55 CMP, serum or plasma 2024 025 [facility] (Registration ), [address] [facility], [place], [address], 15:39:03 ESR (erythrocyt e sedimentati on rate), blood [address] (Registration ), [address] [facility], [place], [address], 5 08:54:47 C-reactive protein, quantitativ e, serum or plasma 2024 025 [facility] (Registration ), [address], [place], [address], 08:54:48 culture, urine 2024 025 [facility], [address], [address], [place], [address], 19:09:52 Referral None recorded. Procedures None recorded. Surgeries None recorded. Imaging None recorded. Medication Orders None recorded. Patient TargetsNo targets recorded. Patient InstructionsNo instructions recorded. Reason for Referral None Reported. Results Created Date Observation Date Name Description Value Unit Range Abnormal Flag Note LastModifiedBy Organization Detail LastModifiedTime 02/24/2002/23/2025 urina lysis , dipst ick Leukocytes (reference range) trace Not Available [facility] Infectious Disease -[facility] [address] [facility] [address], [place], [address], 02/23/2025 14:16:48 02/24/20 25 02/23/2025 urina lysis , dipst ick Nitrite (reference range:) negati ve Not Available [facility] Infectious Disease -[facility] [address], [place], [address], 02/23/2025 14:16:48 02/24/20 25 02/23/2025 urina lysis , dipst ick Urobilinogen (reference range) 0.2 Not Available [facility] Infectious Disease -[facility] [address], [place], [address], 02/23/2025 14:16:48 02/24/20 25 02/23/2025 urina lysis , dipst ick Protein (reference range) negati ve Not Available [facility] Infectious Disease -[facility] [address] [facility] [address], [place], [address], 02/23/2025 14:16:48 02/24/20 25 02/23/2025 urina lysis , dipst ick pH (reference range 5-8.5) 6.0 Not Available [place] [address] [address] [facility] [address], [place], [address], 02/23/2025 14:16:48 02/24/20 25 02/23/2025 urina lysis , dipst ick Blood (reference range:) small Not Available [place] [address] [address] [facility] [address], [place], [address], 02/23/2025 14:16:48 02/24/20 25 02/23/2025 urina lysis , dipst ick Specific Bigelow (reference range) 1.015 Not Available [place] [address] [address] [facility] [address], [place], [address], 02/23/2025 14:16:48 02/24/20 25 02/23/2025 urina lysis , dipst ick Ketone (reference range) negati ve Not Available [place] [address] [address] [facility] [address], [place], [address], 02/23/2025 14:16:48 02/24/20 25 02/23/2025 urina lysis , dipst ick Bilirubin (reference range) negati ve Not Available [place] [address] [address] [facility] [address], [place], [address], 02/23/2025 14:16:48 02/24/20 25 02/23/2025 urina lysis , dipst ick Glucose (reference range) 500 Not Available [place] [address] [address] [facility] [address], [place], [address], 02/23/2025 14:16:48 02/24/20 25 02/23/2025 urina lysis , dipst ick Color (reference range: yellow-brown ) Dark Yellow Not Available [facility] Infectious Disease -[address], [place], [address], 02/23/2025 14:16:48 Result Notes None recorded. Problems Name Problem SNOMED Code Status Onset Date Resolution Date Notes Provider Name and Address Organization Details Recorded Time Syncope 582660017 Active 2021 Malina Hernandez DO [address] [facility], [place], [address] , [place] - [facility] - [place] & [place] 15:33:04 Hypersomnia 55326091 Active 2021 Malina Hernandez DO [address] [facility], [place], [address] , [place] - [facility] - [place] & [place] 15:34:08 Problem Notes None recorded. Procedures Surgical History Date Name Laterality Status Provider Name and Address Organization Details Recorded Time 09/25/20 23 Cystoscopy-Female completed Silvio Valdez MD [address] [facility], [place], [address], [place] - [facility] - [place] & [place] 09/25/2023 15:26:11 04/04/20 22 Date of Last Pap Smear completed Vandana Dalla [place] - [facility] - [place] & [place] 10/03/2022 14:31:43 10/28/19 22 Transportation Engineering Technician Surgery completed Vandana Dalla [place] - [facility] - [place] & [place] 10/03/2022 14:45:45 10/28/19 17 Cholecystectomy completed Vandana Dalla [place] - [facility] - [place] & [place] 10/03/2022 14:32:27 10/28/19 14 Other completed Vandana Dalla [place] - [facility] - [place] & [place] 10/03/2022 14:44:51 cardiac catheterization completed Vandana Dalla [place] - [facility] - [place] & [place] 10/03/2022 14:46:31 strabismus surgery completed Vandana Dalla [place] - [facility] - [place] & [place] 10/03/2022 14:55:15 Imaging Results None recorded. Procedure Notes None recorded. Medical Equipment None Reported. Allergies Allergen ID Allergen Name Allergen Category Reaction Reaction Severity Criticality Documentation Date Start Date Code Code System Note Provider Name and Address Organization Details Recorded Time 26807 aspirin medicatio n chest pain wheezing moderate severe Not available 10/02/2022 1191 RxNorm Vandana catherine, [facility] & [place] 2 09:22:42 00170 Bactrim medicatio n arthralgi a (joint pain) muscle cramps severe severe Not available 10/02/2022 30401 9 RxNorm Vandana catherine, RAFITA DARLING [facility] & [place] 2 09:22:49 73453 insect venom environme nt confusion cough dizziness fever flushing headache wheezing moderate moderate moderate mild moderate moderate moderate Not available 10/02/2022 69195 UNK Vandana catherine, RAFITA [facility] & [place] 2 09:23:13 26188 Pneumococ georges vaccine Not available anaphylax is chest pain facial swelling nausea rash wheezing moderate moderate moderate moderate moderate moderate Not available 10/02/2022 30160 7 RxNorm Vandana catherine, RAFITA DARLING [facility] & [place] 2 09:23:25 20035 rosuvasta tin medicatio n eye swelling facial swelling respirato ry distress moderate moderate moderate Not available 10/02/2022 08097 2 RxNorm Vandana catherine, RAFITA DARLING [facility] & [place] 2 09:23:35 Medications Name [...] % 80 /min 98.6 [degF] 49.6 kg/m2 721256. 86 g 116 mm[Hg] 100 mm[Hg] Bianca Smith [place] - [facility] - [place] & [place] 5 13:59:18 Social History Question Answer Notes LastModified by AppAddict[employer] Details LastModified Time Tobacco Smoking Status Never Smoker Vandana Harris [place], [place] - [facility] - [place] & [place] 10/03/2022 14:32:09 Do You Have An Advance Directive? No Information not available 10/03/2022 Are You Blind Or Do You Have Difficulty Seeing? No Information not available 10/03/2022 What Was The Date Of Your Most Recent Tobacco Screening? 09/17/2022 Information not available 10/03/2022 Do You Have Any Pets? Yes [email or web address] Information not available 09/25/2023 Are You Passively Exposed To Smoke? No Information not available 10/03/2022 Are You Currently In School? No [employer] [email or web address] Information not available 09/25/2023 Sex: Female Functional Status Question Answer Note LastModified by App[employer] Details LastModified Time Do you use any illicit or recreational drugs? No Information not available 10/03/2022 What is your level of alcohol consumption? 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 Occasional Information not available 10/03/2022 Mental Status Question Answer Note LastModified by Organization D etails LastModified Time Do you feel stressed (tense, restless, nervous, or anxious, or unable to sleep at night)? [id number] Information not available 10/03/2022 Family History Relationship [...] SNOMED-CT Code Diagnosis ICD10 Code Diagnosis Note [id number] Marilou Herbert in, FIRE SAFETY DIRECTOR [facility] Infectiou s Disease -[address] [place] [address] 02/23/2025 13:48:33 02/23/2025 14:17:11 Recurrent urinary tract infection 147295133 N39.0 Will check lab work. Will send urine off for a culture. Will see patient back in 1 week. Health Concerns Section Related Observation LastModified by Organization Detai ls LastModified Time None Recorded Concern Status LastModified by Organization Details LastModified Time None Recorded Payers Encounter Date Sequence Insurance Name Policy Number Policy Valdivia Covered Member ID Valdivia Member ID Guarantor Name 02/23/2025 1 [facility] (MEDICAID HMO) Lissystas Valdez [id number] Lissy Valdez Notes Date Note Type Note [...] 2025. Marilou David, PREETI [address], [place], [address], [facility] - [place] & [place] 02/24/2025 10:59:38 OBGyn Episode No OBEpisode recorded.
[2025-04-01 12:16] VITALS: BP 140/74; PULSE 66; RESP 20; TEMP 37; O2SAT 96
[2025-04-01] MEDS: SODIUM CHLORIDE 0.9% 50ML BAG 50 ML IV (12:16)
[2025-04-01] MEDS: ERTAPENEM SODIUM 1 GM in 0.9 % SODIUM CHLORIDE 50 ML IV (12:16)
[2025-04-01] MEDS: SODIUM CHLORIDE 0.9% 10ML FLUSH SYRINGE 10 ML IV (12:17)
[2025-04-01 13:05] VITALS: BP 115/63; PULSE 63; RESP 20; O2SAT 97
== END 2025-04-01 13:05 | disposition home or self-care (01) ==
LOC: INF 12:07
PROVIDERS: PCP Internal Medicine; Visit Provider Internal Medicine
DX: N39.0 Urinary tract infection, site not specified (principal); B96.4 Proteus (mirabilis) (morganii) as the cause of diseases classified elsewhere; Z16.24 Resistance to multiple antibiotics
CPT/HCPCS: 96365; J1335

== ENCOUNTER 2025-04-02 12:21 | Outpatient (CLI) | payer OTHER, SELFPAY ==
--- OUTSIDE RECORDS SUMMARY | 2025-04-02 12:23 | XMS_ITS | Clinical Summary ---
Author Organization [facility] Address [address] [place] [address] Phone Care Team Providers Care Hardware Engineer Name Role Phone Zofia Perkins Unavailable Unavailable Conditions or Problems Problem Name Problem Code Onset Date Status Entry Date Provider Comment Standard Description Annotate Acute Pyelonephritis 18880609 (SNOMED CT) 01/07 Active 01/07 Malina Ames Acute pyelonephritis Obstructive uropathy with infection N13.6 (ICD-10-C M) 01/07 Active 01/07 Malina Ames Pyonephrosis Neutrophilic leukemoid reaction D72.823 (ICD-10-C M) 01/07 Active 01/07 Malina Ames Leukemoid reaction COPD 65745161 (SNOMED CT) 01/07 Active 01/07 Malina Ames Chronic obstructive pulmonary disease Morbid obesity due to excess calories E66.01 (ICD-10-C M) 01/07 Active 01/07 Malina Ames Morbid (severe) obesity due to excess calories DM Type II E11.9 (ICD-10-C M) 01/07 Active 01/07 Malina Ames Type 2 diabetes mellitus without complications Benign hypertensive heart disease with chronic diastolic heart failure (I50.32) 44665034 (SNOMED CT) 01/07 Active 01/07 Malina Ames Benign hypertension Medications Medication Instructions Start Date Stop Date Generic Name [facility] Provider FOSFOMYCIN TROMETHAMINE 3 GM PACK Take 1 packet by mouth as directed take 1 packet every 3-4 days (2 times weekly) fosfomycin tromethamine 93938237608 Calvin Villarreal MD PREDNISONE 20 MG TABS prednisone 05161397755 Milly Jabierbrianne VITAMIN C 500 MG CAPS twice a day ascorbic acid (vitamin c) 66663315371 Milly Mosquera HIPREX 1 GM TABS Take 1 tablet by mouth twice a day 02/18 methenamine hippurate 43021664332 Calvin Villarreal MD INDOMETHACIN 50 MG CAPS Take 1 capsule by mouth three times a day indomethacin 93484093344 Linda De Leon SUCRALFATE 1 GM TABS Take 1 tablet by mouth four times a day sucralfate 81716674811 Linda De Leon BUMETANIDE 2 MG TABS Take 1 tablet by mouth twice a day bumetanide 38177082830 Linda De Leon PRAVASTATIN SODIUM 10 MG TABS Take 1 tablet by mouth every night pravastatin 12776663003 Linda De Leon ENTRESTO 24-26 MG TABS Take 1 tablet by mouth twice a day sacubitril-valsa rtan 75512237847 Linda De Leon VENTOLIN HFA 108 (90 Base) MCG/ACT AERS Inhale 2 puff by mouth every four to six hours as needed albuterol sulfate 21278291936 Linda De Leon ADVAIR DISKUS 250-50 MCG/ACT AEPB Inhale 1 puff twice a day fluticasone propion-salmeter ol 81749060834 Linda De Leon OMEPRAZOLE 20 MG CPDR Take 1 capsule by mouth once a day omeprazole 45439353363 Linda De Leon METFORMIN HCL 500 MG TABS Take 1 tablet by mouth twice a day metformin 47439589222 Linda De Leon FARXIGA 10 MG TABS Take 10 mg by mouth once a day dapagliflozin propanediol 14650011047 Linda De Leon IBUPROFEN (IBUPROFEN) 800 MG TABS Take 1 tablet by mouth every six hours as needed IBUPROFEN Linda De Leon TIZANIDINE HCL 4 MG TABS Take 1 tablet by mouth as needed tizanidine 50118717979 Linda De Leon TRAMADOL HCL 50 MG TABS every twelve hours tramadol 79970848331 Linda De Leon NITROGLYCERIN 0.[address] 1 tablet under tongue as needed nitroglycerin 19217384136 Linda Moises ONDANSETRON HCL 4 MG TABS Take 1 tablet by mouth every eight hours as needed ondansetron hcl 41019548605 Linda Moises SPIRONOLACTONE 50 MG TABS Take 1 tablet by mouth once a day spironolactone 09072484755 Linda De Leon SITagliptin (JANUVIA) 25 MG tablet Take 1 tablet by mouth once a day JANOLIVER De Leon NEBIVOLOL HCL 5 MG TABS Take 1 tablet by mouth once a day nebivolol 11956399257 Jazieltyree De Leon GLYXAMBI 10-5 MG TABS Take 1 tablet by mouth once a day empagliflozin-li nagliptin 71498496179 Linda De Leon VENTOLIN HFA 108 (90 Base) MCG/ACT AERS INHALE TWO PUFFS BY MOUTH EVERY 4 TO 6 HOURS NEEDED 01/19 albuterol sulfate 29266257112 QIE qieuser TRAMADOL HCL 50 MG TABS Every 12 (Twelve) Hours. 01/19 tramadol 99609524399 QIE qieuser TIZANIDINE HCL 4 MG TABS Take 1 tablet by mouth As Needed. 01/19 tizanidine 63639927005 QIE qieuser SUCRALFATE 1 GM TABS Take 1 tablet by mouth 4 (Four) Times a Day. 01/19 sucralfate 61688521931 QIE qieuser SPIRONOLACTONE 50 MG TABS TAKE ONE TABLET BY MOUTH EVERY DAY 01/19 spironolactone 37778801047 QIE qieuser SITagliptin (JANUVIA) 25 MG tablet Take 1 tablet by mouth Daily. 01/19 JANUVIA QIE qieuser PRAVASTATIN SODIUM 10 MG TABS TAKE ONE TABLET BY MOUTH EVERY DAY AT BEDTIME 01/19 pravastatin 62584117953 QIE qieuser ONDANSETRON HCL 4 MG TABS Take 1 tablet by mouth Every 8 (Eight) Hours As Needed. 11/10 ondansetron hcl 45757911904 QIE qieuser OMEPRAZOLE 20 MG CPDR TAKE ONE CAPSULE BY MOUTH EVERY DAY 01/19 omeprazole 25477161877 QIE qieuser O2 (OXYGEN) 2 L by Alternating Nares route Every Night. OXYGEN QIE qieuser NITROGLYCERIN 0.[address] 1 tablet under the tongue As Needed for Chest Pain. 01/19 nitroglycerin 76432515898 QIE qieuser NEBIVOLOL HCL 5 MG TABS TAKE ONE TABLET BY MOUTH EVERY DAY 01/19 nebivolol 81049865583 QIE qieuser METFORMIN HCL 500 MG TABS Take 1 tablet by mouth 2 (Two) Times a Day. 01/19 metformin 36018721800 QIE qieuser IPRATROPIUM-ALBUT MIK 0.5-2.5 (3) MG/3ML SOLN ipratropium-albu terol 99245702723 QIE qieuser INDOMETHACIN 50 MG CAPS Take 1 capsule by mouth 3 (Three) Times a Day With Meals. 01/19 indomethacin 05624857956 QIE qieuser IBUPROFEN (IBUPROFEN) 800 MG TABS Take 1 tablet by mouth Every 6 (Six) Hours As Needed. 01/19 IBUPROFEN QIE qieuser ENTRESTO 24-26 MG TABS TAKE ONE TABLET BY MOUTH TWICE DAILY 01/19 sacubitril-valsa rtan 06116430748 QIE qieuser GLYXAMBI 10-5 MG TABS Take 1 tablet by mouth Daily. 01/19 empagliflozin-li nagliptin 52334846239 QIE qieuser FARXIGA 10 MG TABS Take 10 mg by mouth Daily. 01/19 dapagliflozin propanediol 13029712409 QIE qieuser BUMETANIDE 2 MG TABS TAKE ONE TABLET BY MOUTH TWICE DAILY 01/19 bumetanide 62053844548 QIE qieuser ADVAIR DISKUS 250-50 MCG/ACT AEPB Inhale 1 puff 2 (Two) Times a Day. 01/19 fluticasone propion-salmeter ol 60147265228 QIE qieuser CEFUROXIME AXETIL 500 MG TABS 1 tablet by mouth twice a day cefuroxime axetil 33663297288 Calvin Villarreal MD Medications Administered No information available. Allergies, Adverse Reactions, Alerts Allergy Name Reaction Description Start Date Severity Statu s Provider AUGMENTIN anaphylaxis Critical Active Teraanth godfrey Arnold SULFAMETHOXAZOLE-TRIM ETHOPRIM Other (See Comments) Moderate Active Keke Amaral ROSUVASTATIN Anaphylaxis Critical Active Raquel Amaral PNEUMOCOCCAL 13-RAFAEL CONJ VACC Anaphylaxis Critical Active Keke Amaral BEE VENOM Anaphylaxis Critical Active Keke Amaral ASPIRIN Anaphylaxis Critical Active Keke Amaral LEVOFLOXACIN Moderate Active Gabriela Byrd RN Results Date Name Value Unit Range Flag Description Clinical Lists Update: Prelo ad VAPE_USE Never Tobacco smok ing status Office Visit: Office Visit: room 7 ORALTOBACUSE Never Tobacco smoking status SMOK STATUS Never smoker 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 Vital Signs Date Name Value Unit Description BMI (Body Mass Index) 50.13 kg/m2 Bod y Mass Index (Ratio) Body Temperature 97.3 [degF] temperat ure E&M BP Diastolic 72 mm[Hg] blood pressu re, diastolic BP Systolic 130 mm[Hg] blood pressur e, systolic Heart Rate 68 /min pulse rate Height 63 [in_us] height E&M Respiratory Rate 16 /min respirat ory rate E&M Weight Measured 283 [lb_av] weight E& M Weight Measured 283 [lb_av] weight E& M Immunizations No information available. Advance Directives No information available.
--- OUTSIDE RECORDS SUMMARY | 2025-04-02 12:24 | XMS_ITS | Data Portability ---
Author Organization [facility] Mahamed morgan, ABHAYS CABOT CLOSED Address [address] [place] [address] Assessment No assessment recorded. Plan of Treatment Reminders Order Date Submit Date Provider Last Modified By Organization Details Last Modified Time Details Appointments None recorded. Lab None recorded. Referral aquatic therapy referral 2017 018 [email or web address] 2 Not available 8 11:14:18 cognitive behavioral therapy referral 2017 018 [email or web address] 2 [facility] [address], [address], [place], [address], 8 11:14:19 occupationa l therapist referral 2017 018 [email or web address] 2 Not available 8 11:14:17 Procedures None recorded. Surgeries None recorded. Imaging None recorded. Medication Orders None recorded. Patient TargetsNo targets recorded. Patient Instructions Encounter Date Encounter Id Patient Instructions Last Modified By Organization Details Last Modified Time 08/13/2018 [id number] learning about healthy weight Not available 08/13/2018 [...] Name and Address Organization Details Recorded Time 758782 aspirin medicatio n Not available Not available Not available 08/13/2018 1191 RxNorm Melinda Hudson [facility] 8 10:01:54 Medications Name Sig [...] Address Organization Details Last Updated DateTime 8 156051. 12 g 48.2 kg/m2 160.02 cm 18 /min 61 /min 132 mm[Hg] 96 mm[Hg] Melinda Hudson [facility] 8 10:06:40 Social History Question Answer Notes LastModified by Organizat ion Details LastModified Time Tobacco Smoking Status Never Smoker Melinda Hudson [facility] 08/13/2018 10:02:03 What Was The Date Of Your Most Recent Tobacco Screening? 08/13/2018 Information n ot available 12/15/2019 Sex: Unknown Functional Status None recorded. Mental Status None recorded. Family History Relationship Description Onset Age of this Age Resolved Age Notes LastModified by Organization Details LastModified Time Father No current problems or disability [email or web address] Not available 08/13 10:02:01 Mother No current [...] SNOMED-CT Code Diagnosis ICD10 Code Diagnosis Note [id number] CLIFF BARBER MD RHEUMATOL OGY [address] [place] [address] 08/13/2018 09:13:44 08/13/2018 10:48:47 Pain of multiple joints 02168217 M25.50 she has clinical features of Dixon OA. no features of an inflammato ry arthritis noted. no features of rheumatoid noted. 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 would suggest to avoid steroids and start OT as stated below. she can RTC with me as prn. Fibromyalgia 042547121 M 79.7 she has clinical features suggestive [...] OT to help with the ROM and management professional. 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 Health Concerns Section Related Observation LastModified by Organization Detai ls LastModified Time None Recorded Concern Status LastModified by Organization Details LastModified Time None Recorded Advance Directives Directive None Recorded Payers Insurance Date Sequence Insurance Name Policy Number Policy Valdivia Covered Member ID Valdivia Member ID Guarantor Name 02/03/2024 1 [facility] [id number] 01/24/2024 1 [place] [employer] [place]FS/TRADITIO NAL Lissy Morgan Morton [id number] Lissy [facility] 02/04/2024 1 [facility] (MEDICA[facility] H[facility]) [facility] [id number] [facility] 01/31/[address] [facility] (PPO[facility] [id number] Lissy [facility] [id number] Lissy [facility] Notes Date Note Type Note [...] TSH. CLIFF BARBER MD [facility] [place], [address], [facility] 08/13/2018 17:00:47 OBGyn Episode No OBEpisode recorded.
--- OUTSIDE RECORDS SUMMARY | 2025-04-02 12:24 | XMS_ITS | Encounter Summary ---
Author Organization [facility] Address [address] [place] [address] Care Team Providers Care Technical Aide Name Role Phone Juarez Griffin MD Primary Care Provider [phone] Karen Naqvi DO Unavailable [phone] Encounter Details Date Type Department Care Team ([facility] Contact Info) Description 02/12/2024 Orders Only External Location [address] [place] [address] Gennaro Cuevas MD [facility] [address] [place] [address] Social History Tobacco Use Types Packs/Day Years Used Date Smoking Tobacco: Never Alcohol Use Standard Drinks/Week Comments Yes 0 (1 standard drink = 0.6 oz pure alcohol) Alcoholic Drinks/day: Social alcohol use Comments Unknown Sex and Gender Information Value Date Recorded Sex Assigned at Female 04/11/2024 8:24 AM EDT Legal Sex Female 8:40 PM EDT Gender Identity Female 04/11/2024 8:24 AM EDT Sexual Orientation Not on file documented as of this encounter Plan of Treatment Not on file documented as of this encounter Procedures Procedure Name Priority Date/Time Associated Diagnosis Comments CT OUTSIDE IMAGES 02/12/2024 2:10 AM EDT documented in this encounter Results * CT OUTSIDE IMAGES (02/12/2024 2:10 AM EDT) Anatomical Region Laterality Modality Computed Tomogra phy 02/12/2024 2:10 AM EDT Gennaro Cuevas MD IMG CT PROCEDURES Final Result documented in this encounter Visit Diagnoses Not on filedocumented in this encounter Additional Health Concerns Infection Onset Date Last Indicated Resolved Time ESBL Comment:+ 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 Source: [facility]. This patient will require contact precautions indefinitely. 04/01/2024 documented as of this encounter Care Teams Technical Aide Relationship Specialty Start Date End Date Juarez Griffin MD [address] [place] [address] PCP - General 03/10/21 Karen Naqvi DO [facility] [address] [place] [address] Referring Physician Obstetrics and Gynecology 09/23/24 documented as of this encounter
--- OUTSIDE RECORDS SUMMARY | 2025-04-02 12:24 | XMS_ITS | Continuity of Care Document ---
Author Organization [facility] Address [address] [place] [address] Care Team Providers Care History Professor Name Role Phone SHERI BENAVIDESGHT Primary Care Provider Assessment No assessment recorded. Plan of Treatment Reminders Order Date Submit Date Provider Last Modified By Organization Details Last Modified Time Details Appointments None recorded. Lab urinalysis, dipstick [address] [facility], [address], [place], [address], 14:18:52 CBC w/ diff 2024 025 [facility] (Registration ), [address], [place], [address], 16:11:55 CMP, serum or plasma 2024 025 [facility] (Registration ), [address], [place], [address], 5 15:39:03 ESR (erythrocyt e sedimentati on rate), blood [address] (Registration ), [address], [place], [address], 5 08:54:47 C-reactive protein, quantitativ e, serum or plasma 2024 025 [email or web address] [facility] (Registration ), [address], [place], [address], 08:54:48 culture, urine 2024 025 [facility], [address], [address], [place], [address], 19:09:52 Referral None recorded. Procedures None recorded. Surgeries None recorded. Imaging None recorded. Medication Orders None recorded. Patient TargetsNo targets recorded. Patient InstructionsNo instructions recorded. Reason for Referral None Reported. Results Created Date Observation Date Name Description Value Unit Range Abnormal Flag Note LastModifiedBy Organization Detail LastModifiedTime 02/24/2002/23/2025 urina lysis , dipst ick Leukocytes (reference range) trace Not Available [facility] [address], [place], [address], 02/23/2025 14:16:48 02/24/20 25 02/23/2025 urina lysis , dipst ick Nitrite (reference range:) negati ve Not Available [facility] -[facility] [address], [place], [address], 02/23/2025 14:16:48 02/24/20 25 02/23/2025 urina lysis , dipst ick Urobilinogen (reference range) 0.2 Not Available [facility] [address], [place], [address], 02/23/2025 14:16:48 02/24/20 25 02/23/2025 urina lysis , dipst ick Protein (reference range) negati ve Not Available [facility] [address], [place], [address], 02/23/2025 14:16:48 02/24/20 25 02/23/2025 urina lysis , dipst ick pH (reference range 5-8.5) 6.0 Not Available [place] [address] [address], [place], [address], 02/23/2025 14:16:48 02/24/20 25 02/23/2025 urina lysis , dipst ick Blood (reference range:) small Not Available [place] [address] [address], [place], [address], 02/23/2025 14:16:48 02/24/20 25 02/23/2025 urina lysis , dipst ick Specific [place] (reference range) 1.015 Not Available [place] [address] [address], [place], [address], 02/23/2025 14:16:48 02/24/20 25 02/23/2025 urina lysis , dipst ick Ketone (reference range) negati ve Not Available [place] [address] [address], [place], [address], 02/23/2025 14:16:48 02/24/20 25 02/23/2025 urina lysis , dipst ick Bilirubin (reference range) negati ve Not Available [place] [address] [address], [place], [address], 02/23/2025 14:16:48 02/24/20 25 02/23/2025 urina lysis , dipst ick Glucose (reference range) 500 Not Available [place] [address] [address], [place], [address], 02/23/2025 14:16:48 02/24/20 25 02/23/2025 urina lysis , dipst ick Color (reference range: yellow-brown ) Dark Yellow Not Available [facility], [place], [address], 02/23/2025 14:16:48 Result Notes None recorded. Problems Name Problem SNOMED Code Status Onset Date Resolution Date Notes Provider Name and Address Organization Details Recorded Time Syncope 432638136 Active 2021 Malina Hernandez DO [address], [place], [address] , [place] [facility] [place] & [place] 15:33:04 Hypersomnia 36078441 Active 2021 Malina Hernandez DO [address], [place], [address] , [place] [facility] [place] 15:34:08 Problem Notes None recorded. Procedures Surgical History Date Name Laterality Status Provider Name and Address Organization Details Recorded Time 09/25/20 23 Cystoscopy-Female completed Silvio Valdez MD [address], [place], [address], [place] [facility] [place] & [place] 09/25/2023 15:26:11 04/04/20 22 Date of Last Pap Smear completed Vandana Dalla [place] [facility] [place] 10/03/2022 14:31:43 10/28/19 22 Form Setter Helper Surgery completed Vandana [place] [facility] [place] 10/03/2022 14:45:45 10/28/19 17 Cholecystectomy completed Vandana [place] [facility] [place] 10/03/2022 14:32:27 10/28/19 14 Other completed Vandana [place] [facility] [place] 10/03/2022 14:44:51 cardiac catheterization completed Vandana [place] [facility] [place] 10/03/2022 14:46:31 strabismus surgery completed Vandana [place] [facility] [place] 10/03/2022 14:55:15 Imaging Results None recorded. Procedure Notes None recorded. Medical Equipment None Reported. Allergies Allergen ID Allergen Name Allergen Category Reaction Reaction Severity Criticality Documentation Date Start Date Code Code System Note Provider Name and Address Organization Details Recorded Time 56489 aspirin medicatio n chest pain wheezing moderate severe Not available 10/02/2022 1191 RxNorm Vandana catherine, [place] [facility] [place] 2 09:22:42 94094 Bactrim medicatio n arthralgi a (joint pain) muscle cramps severe severe Not available 10/02/2022 70327 9 RxNorm Vandana catherine, [place] DARLING [facility] & [place] 2 09:22:49 25431 insect venom environme nt confusion cough dizziness fever flushing headache wheezing moderate moderate moderate mild moderate moderate moderate Not available 10/02/2022 57343 UNK Vandana catherine, [place] Shea [facility] & [place] 2 09:23:13 65946 Pneumococ georges vaccine Not available anaphylax is chest pain facial swelling nausea rash wheezing moderate moderate moderate moderate moderate moderate Not available 10/02/2022 93521 7 RxNorm Vandana catherine, [place] DARLING [facility] & [place] 2 09:23:25 17401 rosuvasta tin medicatio n eye swelling facial swelling respirato ry distress moderate moderate moderate Not available 10/02/2022 98128 2 RxNorm Vandana catherine, [place] DARLING [facility] & [place] 2 09:23:35 Medications Name [...] % 80 /min 98.6 [degF] 49.6 kg/m2 169160. 86 g 116 mm[Hg] 100 mm[Hg] Bianca Smith [place] [facility] [place] & [place] 5 13:59:18 Social History Question Answer Notes LastModified by Keepy Details LastModified Time Tobacco Smoking Status Never Smoker Vandana Harris [place], [place] [facility] [place] & [place] 10/03/2022 14:32:09 Do You Have An Advance Directive? No Information not available 10/03/2022 Are You Blind Or Do You Have Difficulty Seeing? No Information not available 10/03/2022 What Was The Date Of Your Most Recent Tobacco Screening? 09/17/2022 Information not available 10/03/2022 Do You Have Any Pets? Yes [email or web address] Information not available 09/25/2023 Are You Passively Exposed To Smoke? No Information not available 10/03/2022 Are You Currently In School? No MASTERS [email or web address] Information not available 09/25/2023 Sex: Female Functional Status Question Answer Note LastModified by Keepy Details LastModified Time Do you use any illicit or recreational drugs? No Information not available 10/03/2022 What is your level of alcohol consumption? 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 Occasional Information not available 10/03/2022 Mental Status Question Answer Note LastModified by Organization D etails LastModified Time Do you feel stressed (tense, restless, nervous, or anxious, or unable to sleep at night)? [id number] Information not available 10/03/2022 Family History Relationship [...] SNOMED-CT Code Diagnosis ICD10 Code Diagnosis Note [id number] Marilou Herbert in, NATURAL SCIENCES PROFESSOR [facility] [place] [address] 02/23/2025 13:48:33 02/23/2025 14:17:11 Recurrent urinary tract infection 756204083 N39.0 Will check lab work. Will send urine off for a culture. Will see patient back in 1 week. Health Concerns Section Related Observation LastModified by Organization Detai ls LastModified Time None Recorded Concern Status LastModified by Organization Details LastModified Time None Recorded Payers Encounter Date Sequence Insurance Name Policy Number Policy Valdivia Covered Member ID Valdivia Member ID Guarantor Name 02/23/2025 1 [facility] (MEDICAID HMO) Lissystas Valdez [id number] Lissy Valdez Notes Date Note Type Note [...] 2025. Marilou David, PREETI [address] , [place], [address], [facility] - [place] & [place] 02/24/2025 10:59:38 OBGyn Episode No OBEpisode recorded.
--- OUTSIDE RECORDS SUMMARY | 2025-04-02 12:24 | XMS_ITS | Data Portability ---
Author Organization [facility] [place] [facility] [place] Alejandro ADMIN Address [address] [place] [id number] Care Team Providers Care Degreasing Solution Mixer Name Role Phone ZAHRAA BENAVIDES Primary Care Provider Assessment Encounter Date Assessment Date Assessment LastModified by Organization Details LastModified Time 08/07/2023 08/07/[address] scan images onto our system. Will review to determine the degree of stone burden bilaterally in the kidneys. Will also plan cystoscopy and pelvic exam in the office in the near future. [email or web address] Not available 08/07/2023 15:34:46 09/25/2023 09/25/2023 I [...] in 6 months with KUB and UA. [email or web address] Not available 09/25/2023 15:29:09 Plan of Treatment Reminders Order Date Submit Date Provider Last Modified By Organization Details Last Modified Time Details Appointments None recorded. Lab urinalysis, dipstick 2024 025 [facility], [address], [place], [address], 5 14:18:52 CBC w/ diff 2024 025 [facility] (Registration ), [address], [place], [address], 5 16:11:55 CMP, serum or plasma 2024 025 [facility] (Registration ), [address], [place], [address], 5 15:39:03 ESR (erythrocyt e sedimentati on rate), blood [address] (Registration ), [address] [facility], [place], [address], 5 08:54:47 C-reactive protein, quantitativ e, serum or plasma [address] (Registration ), [address], [place], [address], 5 08:54:48 culture, urine 2024 025 [facility], [address], [address], [place], [address], 5 19:09:52 urinalysis, dipstick 2022 023 [email or web address] [facility], [address] [facility], [address], [place], [address], 3 16:08:29 Referral None recorded. Procedures None [...] rmed at: [facility] [address] [place] [address] 1269 Lab Direc tor: Los carson PhD, Phone : [phone] Not Available [facility] ([facility]) [address] [facility], [place], [address], 04/03/2023 10:13:10 04/02/20 23 04/03/2023 FSH FSH, serum 5.4 mIU/m L Adult Femal e: Folli cular phase 3.5 - 12.5 Ovula tion phase 4.7 - 21.5 Lutea l phase 1.7 - 7.7 Postm enopa usal 25.8 - 134.8 Perfo rmed at: [facility] [address] [place] [address] 126 Lab Direc tor: Los carson PhD, Phone : [phone] Not Available [facility] ([facility]) [address] [facility], [place], [address], 04/03/2023 10:14:16 08/07/20 23 08/07/2023 urina lysis , dipst ick Leukocytes (reference range) trace Not Available [facility] [address] [facility] [address] [place] [address], [address], 08/07/2023 15:15:15 08/07/2008/07/2023 urina lysis , dipst ick Nitrite (reference range:) negati ve Not Available [facility] [address] [facility] [address], [place], [address], 08/07/2023 15:15:15 08/07/20 23 08/07/2023 urina lysis , dipst ick Urobilinogen (reference range) 0.[address] [facility] [address] [place] [address] [address], [place], [address], 08/07/2023 15:15:15 08/07/2008/07/2023 urina lysis , dipst ick Protein (reference range) negati ve Not Available [facility] [address], [place], [address], 08/07/2023 15:15:15 08/07/2008/07/2023 urina lysis , dipst ick pH (reference range 5-8.5) 6.0 Not Available [facility] [address], [place], [address], 08/07/2023 15:15:15 08/07/2008/07/2023 urina lysis , dipst ick Blood (reference range:) small Not Available [facility] [address] [place] [address] [address], [place], [address], 08/07/2023 15:15:15 08/07/2008/07/2023 urina lysis , dipst ick Specific [place] (reference range) 1.015 Not Available [facility] [address], [place], [address], 08/07/2023 15:15:15 08/07/2008/07/2023 urina lysis , dipst ick Ketone (reference range) negati ve Not Available [address], [place], [address], 08/07/2023 15:15:15 08/07/2008/07/2023 urina lysis , dipst ick Bilirubin (reference range) negati ve Not Available [address], [place], [address], 08/07/2023 15:15:15 08/07/20 23 08/07/2023 urina lysis , dipst ick Glucose (reference range) 250 Not Available [facility] [address] [facility] [address], [place], [address], 08/07/2023 15:15:15 08/07/20 23 08/07/2023 urina lysis , dipst ick Color (reference range: yellow-brown ) Yellow Not Available [facility] [address] [facility] [address], [place], [address], 08/07/2023 15:15:15 02/24/20 25 02/23/2025 CBC AUTO W DIFF WBC 11.3 K/uL 4.0-10 .5 high Not Available [facility] ([facility]) [address] [facility], [place], [address], 02/23/2025 15:02:28 02/24/20 25 02/23/2025 CBC AUTO W DIFF RBC 5.7 M/mm3 4.2-6. 4 Not Available [facility] ([facility]) [address], [place], [address], 02/23/2025 15:02:28 02/24/20 25 02/23/2025 CBC AUTO W DIFF HGB 15.8 gm/dL 12.5-1 6.0 Not Available [facility] ([facility]) [address] [facility], [place], [address], 02/23/2025 15:02:28 02/24/20 25 02/23/2025 CBC AUTO W DIFF HCT 48.8 % 37.0-4 7.0 high Not Available [facility] ([facility]) [address], [place], [address], 02/23/2025 15:02:28 02/24/20 25 02/23/2025 CBC AUTO W DIFF MCV 86.4 fL 78-100 Not Available [facility] ([facility]) [address], [place], [address], 02/23/2025 15:02:28 02/24/20 25 02/23/2025 CBC AUTO W DIFF MCH 28.0 pg 27-31 Not Available [facility] ([facility]) [address], [place], [address], 02/23/2025 15:02:28 02/24/20 25 02/23/2025 CBC AUTO W DIFF MCHC 32.4 g/dL 32-36 Not Available [facility] ([facility]) [address], [place], [address], 02/23/2025 15:02:28 02/24/20 25 02/23/2025 CBC AUTO W DIFF RDW 13.7 % 11.5-1 4.0 Not Available [facility] ([facility]) [address], [place], [address], 02/23/2025 15:02:28 02/24/20 25 02/23/2025 CBC AUTO W DIFF platelet count 380 K/uL 150-45 0 Not Available [facility] ([facility]) [address], [place], [address], 02/23/2025 15:02:28 02/24/20 25 02/23/2025 CBC AUTO W DIFF MPV 10.3 fL 6-9.5 high Not Available [facility] ([facility]) [address], [place], [address], 02/23/2025 15:02:28 02/24/20 25 02/23/2025 CBC AUTO W DIFF neutrophil% 66.5 % 43-65 high Not Available [facility] ([facility]) [address], [place], [address], 02/23/2025 15:02:28 02/24/20 25 02/23/2025 CBC AUTO W DIFF lymphocyte% 24.3 % 20.5-4 5.5 Not Available [facility] ([facility]) [address], [place], [address], 02/23/2025 15:02:28 02/24/20 25 02/23/2025 CBC AUTO W DIFF monocyte% 6.0 % 5.5-11 .7 Not Available [facility] ([facility]) [address], [place], [address], 02/23/2025 15:02:02/24/20 25 02/23/2025 CBC AUTO W DIFF eosinophil% 2.3 % 0.9-2. 9 Not Available [facility] ([facility]) [address] [facility], [place], [address], 02/23/2025 15:02:28 02/24/20 25 02/23/2025 CBC AUTO W DIFF basophil% 0.6 % 0.2-1. 0 Not Available [facility] ([facility]) [address] [place], [address], 02/23/2025 15:02:28 02/24/20 25 02/23/2025 CBC AUTO W DIFF immature granulocytes % 0.3 % 0.0-0. 8 Not Available [facility] ([facility]) [address] [place], [address], 02/23/2025 15:02:28 02/24/20 25 02/23/2025 CBC AUTO W DIFF nucleated red blood cells % 0.0 % Not Available [facility] ([facility]) [address] [place], [address], 02/23/2025 15:02:28 02/24/20 25 02/23/2025 CBC AUTO W DIFF neutrophil# 7.5 K/uL 2.2-4. 8 high Not Available [facility] ([facility]) [address] [facility], [place], [address], 02/23/2025 15:02:28 02/24/20 25 02/23/2025 CBC AUTO W DIFF lymphocyte# 2.7 cell/ mcL 1.3-2. 9 Not Available [facility] ([facility]) [address], [place], [address], 02/23/2025 15:02:28 02/24/20 25 02/23/2025 CBC AUTO W DIFF monocyte# 0.7 cell/ mcL 0.3-0. 8 Not Available [facility] ([facility]) [address] [facility], [place], [address], 02/23/2025 15:02:28 02/24/20 25 02/23/2025 CBC AUTO W DIFF eosinophil# 0.3 cell/ mcL 0-0.2 high Not Available [facility] ([facility]) [address] [facility], [place], [address], 02/23/2025 15:02:28 02/24/20 25 02/23/2025 CBC AUTO W DIFF basophil# 0.1 cell/ mcL 0.0-1. 0 Not Available [facility] ([facility]) [address] [facility], [place], [address], 02/23/2025 15:02:28 02/24/20 25 02/23/2025 CBC AUTO W DIFF immature gramulocytes # 0.03 K/uL Not Available [facility] ([facility]) [address] [facility], [place], [address], 02/23/2025 15:02:28 02/24/20 25 02/23/2025 CBC AUTO W DIFF nucleated red blood cells # 0.00 K/uL Not Available [facility] ([facility]) [address] [facility], [place], [address], 02/23/2025 15:02:28 04/29/02/23/2025 CBC AUTO W DIFF manual differential NO Not Available [facility] ([facility]) [address], [place], [address], 02/23/2025 15:02:28 02/24/20 25 02/23/2025 COMP METAB OLIC PANEL sodium 138 mmol/ L 136-14 5 Not Available [facility] ([facility]) [address], [place], [address], 02/23/2025 15:39:03 02/24/20 25 02/23/2025 COMP METAB OLIC PANEL potassium 3.7 mmol/ L 3.6-5. 0 Not Available [facility] ([facility]) [address] , [place], [address], 02/23/2025 15:39:03 02/24/20 25 02/23/2025 COMP METAB OLIC PANEL chloride 98 mmol/ L 98-107 Not Available [facility] ([facility]) [address] , [place], [address], 02/23/2025 15:39:03 02/24/20 25 02/23/2025 COMP METAB OLIC PANEL carbon dioxide 26.8 mmol/ L 21.0-3 2.0 Not Available [facility] ([facility]) [address] , [place], [address], 02/23/2025 15:39:03 02/24/20 25 02/23/2025 COMP METAB OLIC PANEL anion gap 16.9 Not Available [facility] ([facility]) [address] [place], [address], 02/23/2025 15:39:03 02/24/20 25 02/23/2025 COMP METAB OLIC PANEL glucose 200 mg/dL 70-120 high Not Available [facility] ([facility]) [address], [place], [address], 02/23/2025 15:39:03 02/24/20 25 02/23/2025 COMP METAB OLIC PANEL BUN 12 mg/dL 7-18 Not Available [facility] ([facility]) [address], [place], [address], 02/23/2025 15:39:03 02/24/20 25 02/23/2025 COMP METAB OLIC PANEL creatinine 1.1 mg/dL 0.6-1. 3 Not Available [facility] ([facility]) [address], [place], [address], 02/23/2025 15:39:03 02/24/20 25 02/23/2025 COMP METAB [...] brown ing kiney funct ion. Not Available [facility] ([facility]) [address] , [place], [address], 02/23/2025 15:39:03 02/24/20 25 02/23/2025 COMP METAB OLIC PANEL osmolality (calculated) 293 mOsm/ kg 275-30 1 OSMOL ALITY IS A CALCU LATIO N UTILI ZING THE SERUM /PLAS MA SODIU M, GLUCO SE AND UREA NITRO GEN (BUN) LEVEL S. FOR THE MOST ACCUR ATE RESUL T A MEASU RED SERUM OSMOL ALITY IS SUGGE STED. Not Available [facility] ([facility]) [address], [place], [address], 02/23/2025 15:39:03 02/24/20 25 02/23/2025 COMP METAB OLIC PANEL total protein 8.1 g/dL 6.4-8. 2 Not Available [facility] ([facility]) [address] , [place], [address], 02/23/2025 15:39:03 02/24/20 25 02/23/2025 COMP METAB OLIC PANEL albumin 3.6 g/dL 3.4-5. 0 Not Available [facility] ([facility]) [address] , [place], [address], 02/23/2025 15:39:03 02/24/20 25 02/23/2025 COMP METAB OLIC PANEL globulin 4.5 Not Available [facility] ([facility]) [address], [place], [address], 02/23/2025 15:39:03 02/24/20 25 02/23/2025 COMP METAB OLIC PANEL alb/glob ratio 0.8 0.7-2 Not Available [facility] ([facility]) [address], [place], [address], 02/23/2025 15:39:03 02/24/20 25 02/23/2025 COMP METAB OLIC PANEL calcium 10.2 mg/dL 8.5-10 .5 Not Available [facility] ([facility]) [address], [place], [address], 02/23/2025 15:39:03 02/24/20 25 02/23/2025 COMP METAB OLIC PANEL bilirubin total 0.60 mg/dL 0.10-1 .00 Not Available [facility] ([facility]) [address] [place], [address], 02/23/2025 15:39:03 02/24/20 25 02/23/2025 COMP METAB OLIC PANEL AST (SGOT) 46 U/L 0-37 high Not Available [facility] ([facility]) [address], [place], [address], 02/23/2025 15:39:03 02/24/20 25 02/23/2025 COMP METAB OLIC PANEL ALT (SGPT) 78 U/L 0-65 high Not Available [facility] ([facility]) [address], [place], [address], 02/23/2025 15:39:03 02/24/20 25 02/23/2025 COMP METAB OLIC PANEL alk phosphatase 111 U/L 46-116 Not Available [facility] ([facility]) [address] [facility], [place], [address], 02/23/2025 15:39:03 02/24/20 25 02/23/2025 C-KARLI CTIVE PROTE IN (CRP) C-reactive protein, quant 2.0 mg/dL 0.05-0 .300 high Not Available [facility] ([facility]) [address] [facility], [place], [address], 02/23/2025 15:40:11 02/24/20 25 02/23/2025 SED RATE sed rate auto 9 0-20 Not Available [facility] ([facility]) [address] [facility], [place], [address], 02/23/2025 15:43:35 02/24/20 25 02/27/2025 URINE CULTU RE,CO MPREH ENSIV E urine culture,comp rehensive FINAL REPORT abnormal Not Available [facility] ([facility]) [address] [facility], [place], [address], 02/27/2025 19:09:52 02/24/20 25 02/27/2025 URINE CULTU [...] per mL Not Available [facility] ([facility]) [address] [facility], [place], [address], 02/27/2025 19:09:52 02/24/2002/27/2025 URINE CULTU RE,CO MPREH [...] rolin e Not Available [facility] ([facility]) [address] [facility], [place], [address], 02/27/2025 19:09:52 02/24/2002/27/2025 URINE CULTU RE,CO MPREH [...] R S Not Available [facility] ([facility]) [address] [facility], [place], [address], 02/27/2025 19:09:52 02/24/20 25 02/23/2025 urina lysis , dipst ick Leukocytes (reference range) trace Not Available [place] [address], [place], [address], 02/23/2025 14:16:48 02/24/20 25 02/23/2025 urina lysis , dipst ick Nitrite (reference range:) negati ve Not Available [place] [address] [address] [facility] [address], [place], [address], 02/23/2025 14:16:48 02/24/20 25 02/23/2025 urina lysis , dipst ick Urobilinogen (reference range) 0.2 Not Available [place] [address] [address] [facility] [address], [place], [address], 02/23/2025 14:16:48 02/24/20 25 02/23/2025 urina lysis , dipst ick Protein (reference range) negati ve Not Available [place] [address] [address] [facility] [address], [place], [address], 02/23/2025 14:16:48 02/24/20 25 02/23/2025 urina lysis , dipst ick pH (reference range 5-8.5) 6.0 Not Available [place] [address] [address] [facility] [address], [place], [address], 02/23/2025 14:16:48 02/24/20 25 02/23/2025 urina lysis , dipst ick Blood (reference range:) small Not Available [place] [address] [address] [facility] [address], [place], [address], 02/23/2025 14:16:48 02/24/20 25 02/23/2025 urina lysis , dipst ick Specific [place] (reference range) 1.015 Not Available [place] [address] [address] [facility] [address], [place], [address], 02/23/2025 14:16:48 02/24/20 25 02/23/2025 urina lysis , dipst ick Ketone (reference range) negati ve Not Available [place] [address] [address] [facility] [address], [place], [address], 02/23/2025 14:16:48 02/24/20 25 02/23/2025 urina lysis , dipst ick Bilirubin (reference range) negati ve Not Available [place] [address] [address] [facility] [address], [place], [address], 02/23/2025 14:16:48 02/24/20 25 02/23/2025 urina lysis , dipst ick Glucose (reference range) 500 Not Available [place] [address] [address] [facility] [address], [place], [address], 02/23/2025 14:16:48 02/24/20 25 02/23/2025 urina lysis , dipst ick Color (reference range: yellow-brown ) Dark Yellow Not Available [place] [address] [address] [facility] [address], [place], [address], 02/23/2025 14:16:48 Result Notes None recorded. Problems Name Problem SNOMED Code Status Onset Date Resolution Date Notes Provider Name and Address Organization Details Recorded Time Syncope 341082823 Active 2021 Malina Hernandez DO [address], [place], [address] , [facility] [place] [facility] [place] 15:33:04 Hypersomnia 70360702 Active 2021 Malina Hernandez DO [address] [facility], [place], [address] , [place] - [facility] & [place] 15:34:08 Problem Notes None recorded. Procedures Surgical History Date Name Laterality Status Provider Name and Address Organization Details Recorded Time 09/25/20 23 Cystoscopy-Female completed Silvio Valdez MD [address] [facility], [place], [address], [place] [facility] [place] [facility] [place] 09/25/2023 15:26:11 04/04/20 22 Date of Last Pap Smear completed Vandana Eugenioa [place] - [facility] [place] [facility] [place] 10/03/2022 14:31:43 10/28/19 22 Wiping Cloth Cutter Surgery completed Vandnaa Dalla [place] - [facility] [place] [facility] [place] 10/03/2022 14:45:45 10/28/19 17 Cholecystectomy completed Vandana Dalla [place] - [facility] & [place] 10/03/2022 14:32:27 10/28/19 14 Other completed Vandana Dalla [place] - [facility] [place] [facility] [place] 10/03/2022 14:44:51 cardiac catheterization completed Vandana Dalla [place] - [facility] & [place] 10/03/2022 14:46:31 strabismus surgery completed Vandana Dalla [place] - [facility] [place] 10/03/2022 14:55:15 Imaging Results None recorded. Procedure Notes None recorded. Medical Equipment None Reported. Allergies Allergen ID Allergen Name Allergen Category Reaction Reaction Severity Criticality Documentation Date Start Date Code Code System Note Provider Name and Address Organization Details Recorded Time 84321 aspirin medicatio n chest pain wheezing moderate severe Not available 10/02/2022 1191 RxNorm Vandana Eugenioa null, [place] - [facility] & [place] 09:22:42 35668 Bactrim medicatio n arthralgi a (joint pain) muscle cramps severe severe Not available 10/02/2022 68512 9 RxNorm Vandana Eugenioa null, [place] - [facility] & [place] 09:22:49 32602 insect venom environme nt confusion cough dizziness fever flushing headache wheezing moderate moderate moderate mild moderate moderate moderate Not available 10/02/2022 12821 UNK Vandana catherine, [facility] & [place] 2 09:23:13 43762 Pneumococ georges vaccine Not available anaphylax is chest pain facial swelling nausea rash wheezing moderate moderate moderate moderate moderate moderate Not available 10/02/2022 08846 7 RxNorm Vandana catherine, [facility] [place] [facility] & [place] 2 09:23:25 37721 rosuvasta tin medicatio n eye swelling facial swelling respirato ry distress moderate moderate moderate Not available 10/02/2022 39188 2 RxNorm Vandana catherine, [facility] & [place] 2 09:23:35 Medications Name [...] % 80 /min 98.6 [degF] 49.6 kg/m2 918855. 86 g 116 mm[Hg] 100 mm[Hg] Bianca Smith [place] - [facility] 5 13:59:18 Date Recorded Body height Heart rate Oxygen saturation Oxygen saturation in Arterial blood by Pulse oximetry Heart rate Body temperature Body mass index (BMI) Body weight Systolic blood pressure Diastolic blood pressure Provider Name and Address Organization Details Last Updated DateTime 5 160.02 cm 60 /min 97 % 97 % 60 /min 97.7 [degF] 49.6 kg/m2 227549. 86 g 119 mm[Hg] 79 mm[Hg] Bianca ELLER - [facility] 5 13:31:54 Date Recorded Body height Body temperature Oxygen saturation Oxygen saturation in Arterial blood by Pulse oximetry Inhaled oxygen flow rate Heart rate Body mass index (BMI) Body weight Systolic blood pressure Diastolic blood pressure Provider Name and Address Organization Details Last Updated DateTime 3 157.48 cm 97.1 [degF] 98 % 98 % 2 L/min 89 /min 48.3 kg/m2 366357. 39 g 128 mm[Hg] 98 mm[Hg] Phillip Morrison [facility] & [place] 3 13:04:48 Date Recorded Body height Body mass index (BMI) Body weight Systolic blood pressure Diastolic blood pressure Provider Name and Address Organization Details Last Updated DateTime 08/07/2023 157.48 cm 49.4 kg/m2 472484.9 4 g 125 mm[Hg] 75 mm[Hg] Britney Yee [facility] & [place] 3 15:05:24 Date Recorded Body height Body mass index (BMI) Body weight Systolic blood pressure Diastolic blood pressure Provider Name and Address Organization Details Last Updated DateTime 09/25/2023 157.48 cm 51.2 kg/m2 586620.8 6 g 126 mm[Hg] 76 mm[Hg] Ioana Ayala [facility] & [place] 3 15:07:04 Social History Question Answer Notes LastModified by [employer] ion Details LastModified Time Tobacco Smoking Status Never Smoker [facility] [place] 10/03/2022 14:32:09 Do You Have An Advance Directive? No Information not available 10/03/2022 Are You Blind Or Do You Have Difficulty Seeing? No Information not available 10/03/2022 What Was The Date Of Your Most Recent Tobacco Screening? 09/17/2022 Information not available 10/03/2022 Do You Have Any Pets? Yes [email or web address] Information not available 09/25/2023 Are You Passively Exposed To Smoke? No Information not available 10/03/2022 Are You Currently In School? No [employer] [email or web address] Information not available 09/25/2023 Sex: Female Functional Status Question Answer Note LastModified by Organizat ion Details LastModified Time Do you use any illicit or recreational drugs? No Information not available 10/03/2022 What is your level of alcohol consumption? 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 Occasional Information not available 10/03/2022 Mental Status Question Answer Note LastModified by Organization D etails LastModified Time Do you feel stressed (tense, restless, nervous, or anxious, or unable to sleep at night)? [id number] Information not available 10/03/2022 Family History Relationship [...] SNOMED-CT Code Diagnosis ICD10 Code Diagnosis Note [id number] [facility] [address] [facility],[address] [place] [address] 10/03/2022 14:07:23 10/03/2022 15:38:25 Syncope [id number] R55 She has been experienci ng these stereotypi georges passing out episodes for five years. No definite witnessed convulsion s but some associated brief confusion afterwards .will order EEG to rule out neurologic causes of syncope Hypersomnia [id number] G47 .10 She describes some significan t episodes of pathologic al sleepiness . She will fall asleep without warning in the middle of talking. This is very infrequent but can be suggestive of narcolepsy . Will order PSG with MSLT to evaluate this in more detail. 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 [id number] Silvio Valdez MD [facility] [address] [place] [address],[address] [place] [address] 08/07/2023 14:35:57 08/07/2023 15:40:17 Recurrent urinary tract infection [id number] N39.0 Kidney stone [id number] N2 0.0 Chronic th oracic back pain [id number] 97097 M54.6 Microscopic hematuria 19 [id number] R31.29 [id number] Silvio Valdez MD [facility] [address] [place] [address],[address] [place] [address] 09/25/2023 14:26:57 09/25/2023 15:25:02 Recurrent urinary tract infection [id number] N39.0 Kidney stone [id number] N2 0.0 Microscopic hematuria 19 [id number] R31.29 [id number] [facility] [address] [facility] [address] [place] [address] 02/23/2025 13:48:33 02/23/2025 14:17:11 Recurrent urinary tract infection [id number] N39.0 Will check lab work. Will send urine off for a culture. Will see patient back in 1 week. 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 Patient will follow up in 2 weeks. Call the office if anything persists or worsens. 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 (POS II) [facility] [id number] [facility] 02/27/2025 1 [facility] (MEDICAID HMO) [facility] [id number] [facility] Notes Date [...] time. Patient states she is seen her trash man for this, was told it is possibly a lymphocele. Micheline Lackey MD [address] [facility], [place], [address], [facility] - [place] & [place] 04/18/2023 12:50:43 08/07/2023 text/html Location: [...] status post hysterectomy. Silvio Valdez MD [address] [facility], [place], [address], [facility] - [place] 08/07/2023 15:35:17 09/25/2023 text/html Patient [...] hysterectomy. Silvio Valdez MD [address], [place], [address], [facility] & [place] 09/25/2023 15:30:10 02/23/2025 text/html patient [...] 2025. Marilou David APRN [address], [place], [address], [facility] & [place] 02/24/2025 10:59:38 03/02/2025 text/html patient presents to clinic for follow up. Urine culture results received. Patient denies any fever. She is scheduled to have surgery to remove her stone on . Marilou David APRN [address], [place], [address], [facility] - [facility] & [place] 03/02/2025 13:35:40 OBGyn Episode No OBEpisode recorded.
--- OUTSIDE RECORDS SUMMARY | 2025-04-02 12:24 | XMS_ITS | Encounter Summary ---
Author Organization [facility] Address [address] [place] [address] Care Team Providers Care Adhesive Sprayer Name Role Phone Juarez Griffin MD Primary Care Provider [phone] Karen Naqvi DO Unavailable Encounter Details Date Type Department Care Team ([facility] st Contact Info) Description 03/12/2025 Orders Only External Location [address] [place] [id number] Provider, External Social History Tobacco Use Types Packs/Day Years Used Date Smoking Tobacco: Never Smokeless Tobacco: Never Alcohol Use Standard Drinks/Week Comments Not Currently 0 (1 standard drink = 0.6 oz pur e alcohol) 1-3 drinks a year PHQ-2 Answer Date Recorded Patient Health Questionnaire-2 Score 0 10/05/2024 CAGE ASSESSMENT Answer Date Recorded Cage unable to access Not on file 04/11/2024 Maximum number of drinks you had on a given occasion in the last month? 2 drinks 04/11/2024 How many alcoholic Beverages do you typically drink in a week? 0 - 7 per week 04/11/2024 Have you ever felt you should CUT down on your d rinking? 0 04/11/2024 Have you been ANNOYED by peo ple criticizing your drinking? 0 04/11/2024 Have you felt GUILTY about your drinking? 0 04/11/2024 Have you had a drink first t yue in the morning (EYE-CONTRACTING MANAGER) to steady your nerves or to get rid of a hangover? 0 04/11/2024 CAGE Questionnaire Score 0 024 Comments No Sex and Gender Information Value Date Recorded Sex Assigned at Female 04/11/2024 8:24 AM EDT Legal Sex Female 8:40 PM EDT Gender Identity Female 04/11/2024 8:24 AM EDT Sexual Orientation Not on file documented as of this encounter Plan of Treatment Not on file documented as of this encounter Procedures Procedure Name Priority Date/Time Associated Diagnosis Comments CT MSK OUTSIDE IMAGES 03/12/2025 2:12 AM EDT documented in this encounter Results * CT MSK OUTSIDE IMAGES (03/12/2025 2:12 AM EDT) Anatomical Region Laterality Modality Computed Tomogra phy 03/12/2025 2:12 AM EDT us External Provider IMG CT PROCEDURES Final Result documented in this encounter Visit Diagnoses Not on filedocumented in this encounter Additional Health Concerns Infection Onset Date Last Indicated Resolved Time ESBL Comment:+ 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 Source: [facility]. This patient will require contact precautions indefinitely. 04/01/2024 Assessment Noted Time A fall risk assessment has been complete d for the patient 10/05/2024 1:53 PM EST A Body Mass Index follow-up plan has been documented for the patient 04/12/2024 12:42 PM EDT documented as of this encounter Care Teams Adhesive Sprayer Relationship Specialty Start Date End Date Juarez Griffin MD [address] [facility] [address] [place] [address] PCP - General 03/10/21 Karen Naqvi DO [address] [facility] [address] [place] [address] Referring Physician Obstetrics and Gynecology 09/23/24 documented as of this encounter
--- OUTSIDE RECORDS SUMMARY | 2025-04-02 12:25 | XMS_ITS | Clinical Summary ---
Author Organization [facility] Address [address] [place] [address] Care Team Providers Care Attorney Name Role Phone Juarez Griffin MD Primary Care Provider [phone] Karen Naqvi DO Unavailable [phone] Allergies Active Allergy Reactions Criticality Noted Date Comments Aspirin Anaphylaxis High 12/25/2022 Amoxicillin-Pot Clavulanate Swelling High 04/10/2024 Sulfamethoxazole-Trimet hoprim Other - please document in the comment field Low 01/01/2023 Extreme joint pain, nausea and vomiting Bee Venom Anaphylaxis High 01/01/2023 Levofloxacin Swelling High 04/10/2024 Pneumococcal 13-Gina Conj Vacc Anaphylaxis High 01/01/2023 Rosuvastatin Anaphylaxis High 01/01/2023 Sodium Hypochlorite Anaphylaxis High 02/06/2024 Sucralose Shortness of breath High 02/06/2024 Medications Albuterol Sulfate 108 (90 Base) MCG/ACT aerosol powder every 4 (four) hours. Active spironolactone (Aldactone) 50 MG tablet 1 (one) time each day. Active omeprazole (PriLOSEC) [address] capsule Take one capsule by mouth once daily 7 Active nebivolol (Bystolic) 5 MG tablet Take 1 tablet (5 mg) by mouth 1 (one) time each day. Active sacubitril-valsarta n (Entresto) 24-26 MG tablet Take 1 tablet by mouth 2 (two) times a day. Active nitroglycerin (Nitrostat) 0.[address] 1 tablet (0.4 mg) under the tongue every 5 (five) minutes if needed for chest pain. Active pravastatin (Pravachol) 10 MG tablet Take 1 tablet (10 mg) by mouth every night. Active metFORMIN (Glucophage) 500 MG tablet Take 1 tablet (500 mg) by mouth 2 (two) times a day with meals. Active ibuprofen 800 MG tablet Take 1 tablet (800 mg) by mouth every 6 (six) hours if needed for mild pain. Active ondansetron ODT (Zofran-ODT) 4 MG disintegrating tablet Take 1 tablet (4 mg) by mouth every 8 (eight) hours if needed for nausea or vomiting. 20 tablet 4 Active Ascorbic Acid (vitamin C) 500 MG tablet Take 1 tablet (500 mg) by mouth 2 (two) times a day. 4 Active bumetanide (Bumex) 2 MG tablet Take 1 tablet (2 mg) by mouth 1 (one) time each day. Active montelukast (Singulair) 10 MG tablet Take 1 tablet (10 mg) by mouth every night. 3 Active Active Problems Problem Noted Date Diagnosed Date Bilateral ovarian cysts 10/05/2024 Nephrolithiasis 04/11/2024 Acute kidney injury 04/10/2024 Right renal stone 04/10/2024 Morbid (severe) obesity due to excess calories 0 03/10/2024 Recurrent UTI 03/09/2024 Chronic obstructive pulmonary disease, unspecifi ed 02/06/2024 Obstructive and reflux uropathy, unspecified 01/2024 Type 2 diabetes mellitus wit hout complication, without long-term current use of insulin 01/17/2023 Overview (04/10/2024): Last Assessment & Plan: Discussed Ozempic as a way for weight loss and diabetic control. COPD (chronic obstructive pu lmonary disease) with chronic bronchitis 05/22/2006 Encounters Date Type Department Care Team Description 03/12/2025 Orders Only External Location [address] [place] [address] Provider, External from Last 3 Months Immunizations Immunization Administration Dates Next Due Influenza, Injectable, MDCK, trivalent, PF 08/05 Influenza, Unspecified 10/29/2022 Pneumococcal Conjugate PCV 13 09/06/2021 Zoster, Recombinant 10/30/2023,05/27/2023 Family History Medical History Relation Name Comments Diabetes Father Wallace Heart disease Father Wallace Hypertension Father Wallace Dementia Mother Marzena Hypertension Mother Marzena Cancer Mother's Brother Lino Heart disease Mother's Brother Lino Diabetes insipidus Other 1 Hypertension Other 2 Lupus Other 3 Cancer Paternal Grandfather Unknown Anesthesia problems Sister Marta Diabetes Sister Marta Heart disease Sister Marta Hypertension Sister Marta Relation Name Status Comments Father Wallace Mother Marzena Mother's Brother Lino Other 1 Other 2 Other 3 Paternal Grandfather Unknown Sister Marta Social History Tobacco Use Types Packs/Day Years Used Date Smoking Tobacco: Never Smokeless Tobacco: Never Tobacco Cessation:Counseling Given: Not Answered Alcohol Use Standard Drinks/Week Comments Not Currently [...] drink first t yue in the morning (EYE-OFFICE SERVICE COORDINATOR) to steady your nerves or to get rid of a hangover? 0 04/11/2024 CAGE Questionnaire Score 0 024 Comments No Sex and Gender Information Value Date Recorded Sex Assigned at Female 04/11/2024 8:24 AM EDT Legal Sex Female 8:40 PM EDT Gender Identity Female 04/11/2024 8:24 AM EDT Sexual Orientation Not on file Last Filed Vital Signs Vital Sign Reading Time Taken Comments Blood Pressure 137/84 10/05/2024 12:47 PM EST Pulse 87 10/05/2024 12:47 PM EST Temperature 36.6 C (97.9 F) 10/05/2024 12:47 PM EST Respiratory Rate 18 10/05/2024 12:47 PM EST Oxygen Saturation 95% 10/05/2024 12:47 PM EST Inhaled Oxygen Concentration - - Weight 132 kg (290 lb 9.1 oz) 10/05/2024 12:47 P M EST Height 160 cm (5' 3 ) 10/05/2024 12:47 PM EST Body Mass Index 51.47 10/05/2024 12:47 PM EST Plan of Treatment Health Maintenance Due Date Last Done Comments [facility]-/Child/Adol SDOH Screenings 1973 Diabetes: Dental Exam 1983 [facility]- SDOH Screenings 1991 [facility]-Adult SDOH Screenings 1991 [facility]-DTaP,Tdap,and Td Vaccine s (1 - Tdap) 1992 [facility]-Hepatitis B Vaccines (1 of 3 - 19+ 3-dose series) 1992 CT Colonography 2018 Colonoscopy 2018 FIT-DNA 2018 FIT 2018 FOBT 2018 Sigmoidoscopy 2018 [facility]-Colorectal Cancer Screening 2018 [facility]-Pneumococcal Vaccine: 50 + Years (2 of 2 - PPSV23) 11/01/2021 09/06/2021 [facility]-Breast Cancer Screening 2023 [id number] Vaccine ( - season) 2024 10/07/2022, 08/21/2021 [facility]-Diabetes: Hemoglobin A1C 10/08/2024 04/10/2024 [facility]-Depression Screening 10/05/2025 10/05/2024 [facility]-Zoster Vaccines Completed 10/30/2023, 05/27/2023 [facility]-HIV Screening Completed 04/10/2024 [facility]-Hepatitis C Screening Completed 04/10/2024 [facility]-Obesity Intervention Completed 04/10/2024 [facility]-Influenza Vaccine Completed 08/05/2024 , 10/29/2022 HPV Vaccines Aged Out No longer eligi ble based on patient's age to complete this topic [facility]-HIB Vaccines Aged Out No longer e ligible based on patient's age to complete this topic [facility]-Hepatitis A Vaccines Aged Out No longer eligible based on patient's age to complete this topic [facility]-IPV Vaccines Aged Out No longer e ligible based on patient's age to complete this topic [facility]-Rotavirus Vaccines Aged Out No lo nger eligible based on patient's age to complete this topic Medical Devices Implanted Type Area Habitat Management Coordinator Device Identifier Shelf Expiration Date Model / Serial / Lot Stent Ureteral Double Pigtail Pos 6fr 24cm - [id number] - [id number] Implanted:Qty: 1 on 04/11/2024 by Harvey Macdonald MD at [facility] Stent Right: [id number] 01/02/2026 [id number] / [id number] / [id number] Recorder-2016 Implanted:04/28 (Quantity not on file) Chest Nimbus Data [id number] / / Procedures Procedure Name Priority Date/Time Associated Diagnosis Comments CT MSK OUTSIDE IMAGES 03/12/2025 2:12 AM EDT HEPATITIS C ANTIBODY - ED W/REFLEX TO HCV QUANT PCR STAT 04/10/2024 6:11 PM EDT ED HIV 1/2 ANTIBODY/ANTIGEN SCREEN WITH REFLEX TO HIV I/II DIFFERENTIATION STAT 04/10/2024 6:11 PM EDT HEMOGLOBIN A1C Add-On 04/10/2024 6:11 PM EDT from Last 3 Months or Most Recently Relevant to Health Maintenance Results * CT MSK OUTSIDE IMAGES (03/12/2025 2:12 AM EDT) Anatomical Region Laterality Modality Computed Tomogra phy 03/12/2025 2:12 AM EDT us External Provider IMG CT PROCEDURES Final Result * ED HIV 1/2 Antibody/Antigen Screen w/Reflex to HIV 1/2 Differentiation (04/10/2024 6:11 PM EDT) HIV 1 & 2 Antibody/Antigen Screen Non Reactive Non Reactive 04/10/2024 7:25 PM EDT [facility] Comment:Screening for HIV 1 & 2 antibodies, and P24 antigen is NONREACTIVE. No confirmatory testing is required. Blood Venous blood specimen / Unknown Venipuncture / Unknown 04/10/2024 6:11 PM EDT 04/10/2024 6:27 PM EDT us Susan Mcclure MD LAB BLOOD ORDERABLES Final Re sult Performing Organization Address [facility] Co de Phone Number [facility] [address] [place] [address] * Hepatitis C Antibody - ED (04/10/2024 6:11 PM EDT) Hepatitis C Antibody Negative Negative 04/10/2024 7:24 PM EDT [facility] Blood Venous blood specimen / Unknown Venipuncture / Unknown 04/10/2024 6:11 PM EDT 04/10/2024 6:26 PM EDT us Susan Mcclure MD LAB BLOOD ORDERABLES Final Re sult Performing Organization Address [facility] de Phone Number [facility] [address] [place] [address] * (ABNORMAL) Hemoglobin A1c (04/10/2024 6:11 PM EDT) Pathologist [facility] Hemoglobin A1c 6.3(H) <5.7 % 04/10/2024 9:31 PM EDT [facility] Blood Venous blood specimen / Unknown Venipuncture / Unknown 04/10/2024 6:11 PM EDT 04/10/2024 6:19 PM EDT Narrative [facility] - 04/10/2024 9:31 PM EDT HA1C Interpretive Data: Diagnosis of Diabetes: Diabetic > or = 6.5% Pre-diabetic 5.7 to 6.4% Non-diabetic < or = 5.6% Glycemic Targets for Type I and Type II Diabetics: Non- Adults <7.0% Adults <6.0% Children and Adolescents <7.5% Source: [place] [employer]. Standards of medical care in diabetes,2017. Diabetes Care.2017:40 (suppl 1):S1-S135. HbA1c assay performed by an ion-exchange chromatography method that is certified traceable to the [facility]. us Joselito Berrios MD LAB BLOOD ORDERABLES Final Re sult [facility] [address] [place] [address] from Last 3 Months or Most Recently Relevant to Health Maintenance Additional Health Concerns Infection Onset Date Last Indicated ESBL Comment:+ 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 Source: [facility]. This patient will require contact precautions indefinitely. 04/01/2024 Insurance [employer] MEDICA[employer] Advance Directives * Full Code (Latest Code Status on File) Date Activated Date Inactivated Comments 04/11/2024 10:12 AM 04/12/2024 3:22 PM Question Answer Comments Patient has decision-making capacity? Yes Care Teams Attorney Relationship Specialty Start Date End Date Juarez Griffin MD [address] [facility] [address] [place] [address] PCP - General 03/10/21 Karen Naqvi DO [address] [facility] [address] [place] [address] Referring Physician Obstetrics and Gynecology 09/23/24
--- OUTSIDE RECORDS SUMMARY | 2025-04-02 12:25 | XMS_ITS | Referral Summary ---
Author Organization [employer] Address [address] [place] [address] Care Team Providers Care Director Of Real Estate Name Role Phone Juarez Griffin MD Primary Care Provider [phone] Allergies Active Allergy Reactions Criticality Noted Date Comments Aspirin Shortness Of Breath High 12/27/2023 Sulfamethoxazole-Trime thoprim 12/27/2023 Bee Venom Protein (Honey Bee) Anaphylaxis High 01/01/2023 Pneumococcal 14-Valent Polysac Vaccine Anaphylaxis High 01/01/2023 Rosuvastatin Anaphylaxis,Swelling High 01/01/2023 Other reaction(s): eye swelling, respiratory distress Tolerates Pravastatin with no issues. Medications montelukast (SINGULAIR) 10 mg tablet Take 1 tablet (10 mg total) by mouth nightly. Active bumetanide (BUMEX) 2 MG tablet Take 1 tablet (2 mg total) by mouth 2 (two) times daily. 3 Active empagliflozin-l inagliptin (Glyxambi) 10-5 mg per tablet Take 1 tablet by mouth daily. 4 Active fluticasone propion-salmete roL (Advair Diskus) 250-50 mcg/dose diskus inhaler Inhale 1 puff by mouth via inhaler 2 (two) times daily. 3 Active ibuprofen (ADVIL,MOTRIN) 800 MG tablet Take 1 tablet (800 mg total) by mouth every 8 (eight) hours as needed for Pain. Active ipratropium-alb uteroL (DUO-NEB) 0.5-2.5 (3) mg/3 mL nebulizer solution Take 3 mLs by nebulization every 6 (six) hours as needed for Shortness of Breath. 3 Active metFORMIN (GLUCOPHAGE) 500 MG tablet Take 1 tablet (500 mg total) by mouth 2 (two) times daily with breakfast and dinner. Active pravastatin (PRAVACHOL) 10 MG tablet Take 1 tablet (10 mg total) by mouth nightly. 4 Active spironolactone (ALDACTONE) 50 MG tablet Take 1 tablet (50 mg total) by mouth daily. 4 Active traMADoL (ULTRAM) 50 mg tablet Take 1-2 tablets (50-100 mg total) by mouth every 6 (six) hours as needed for Pain. Active sacubitriL-vals fide (Entresto) 24-26 mg tablet Take 1 tablet by mouth 2 (two) times daily. 3 Active albuterol HFA (VENTOLIN HFA) 90 mcg/actuation inhaler Inhale 2 puffs by mouth via inhaler every 6 (six) hours as needed for Wheezing. Active omeprazole (PriLOSEC) 20 MG capsule Take 1 capsule (20 mg total) by mouth daily. Active nebivoloL (BYSTOLIC) 5 MG tablet Take 1 tablet (5 mg total) by mouth daily. Active nitroglycerin (NITROSTAT) 0.[address] 1 tablet (0.4 mg total) under the tongue every 5 (five) minutes as needed for Chest pain Put 1 pill under tongue every 5min as needed for chest pain.No more than 3 doses in 15min.Call 911 if pain unrelieved 5min after 1st dose. Active Active Problems Problem Noted Date Diagnosed Date Nephrolithiasis 12/27/2023 Social History Tobacco Use Types Packs/Day Years Used Date Smoking Tobacco: Never Smokeless Tobacco: Never Tobacco Cessation:Counseling Given: Not Answered Alcohol Use Standard Drinks/Week Comments Never 0 (1 standard drink = 0.6 oz pur e alcohol) PRAPARE - Transportation Answer Date Re corded In the past 12 months, has l ack of transportation kept you from medical appointments or from getting medications? No 12/27/2023 Lack of Transportation (Non-Medical) Not on file 12/27/2023 Housing Stability Vital Sign Answer Fady e Recorded In the last 12 months, was t here a time when you were not able to pay the mortgage or rent on time? No 12/27/2023 In the last 12 months, how many places have you lived? 1 12/27/2023 In the last 12 months, was t here a time when you did not have a steady place to sleep or slept in a detention (including now)? No 12/27/2023 Utilities Answer Date Recorded In the past 12 months, has t he electric, gas, oil, or water company threatened to shut off services in your home? No 12/27/2023 Interpersonal Safety Answer Date Record ed How often does anyone, branden burton family and friends, physically hurt you? Never 12/27/2023 How often does anyone, branden burton family and friends, insult or talk down to you? Never 12/27/2023 How often does anyone, branden burton family and friends, threaten you with harm? Never 12/27/2023 How often does anyone, branden burton family and friends, scream or curse at you? Never 12/27/2023 Housing Stability Answer Date Recorded What is your living situation today? I have a [facility] place to live 12/27/[address] you li ve. Do you have problems with any of the following? None of the above 12/27/2023 Food Insecurity Answer Date Recorded Within the past 12 months, y ou worried that your food would run out before you got money to buy more. Sometimes true 2023 Within the past 12 months, t he food you bought just didn't last and you didn't have money to get more. Sometimes true 10/2023 Transportation Needs Answer Date Record ed In the past 12 months, has l ack of reliable transportation kept you from medical appointments, meetings, work or from getting things needed for daily living? No 12/27/2023 Financial Resource Strain Answer Date R ecorded How hard is it for you to pa y for the very basics like food, housing, medical care, and heating? Would you say it is: Somewhat hard 12/27/2023 Employment Answer Date Recorded Do you want help finding or keeping work or a job? I do not need or want help 12/27/2023 Family and Community Support Answer Fady e Recorded If for any reason you need h elp with day-to-day activities such as bathing, preparing meals, shopping, managing finances, etc., do you get the help you need? I get all the help I need 12/27/2023 Feeling Lonely or Isolated 1 12/26 Educational Attainment Answer Date Hosea rded Do you speak a language other than Telugu at [facility]? No 12/27/2023 Do you want help with school or training? For example, starting or completing job training or getting a high school diploma, GED or equivalent. No 12/27/2023 Physical Activity Answer Date Recorded Number of minutes of exercise per week 0 12/27/2023 Alcohol Use Answer Date Recorded 5 or More Drinks Per Day Past 12 Months 0 09/12/2024 Depression Answer Date Recorded Calculation of above two rows 0 Stress Answer Date Recorded Stress means a situation in which a person feels tense, restless, nervous, or anxious, or is unable to sleep at night because his or her mind is troubled all the time. Do you feel this kind of stress these days? Somewhat 12/27/2023 Disabilities Answer Date Recorded Because of a physical, menta l, or emotional condition, do you have serious difficulty concentrating, remembering, or making decisions? (5 years or older) No 12/27/2023 Because of a physical, menta l, or emotional condition, do you have difficulty doing errands alone such as visiting a doctor's office or shopping? (15 years or older) Yes 12/27/2023 Substance Use Answer Date Recorded How many times in the past y ear have you used prescription drugs for non-medical reasons? Never 12/27/2023 How many times in the past year have you used il legal drugs? Never 12/27/2023 Comments Unknown Sex and Gender Information Value Date Recorded Sex Assigned at Not on file Legal Sex Female 6:48 PM CDT Gender Identity Not on file Sexual Orientation Not on file Last Filed Vital Signs Vital Sign Reading Time Taken Comments Blood Pressure 103/60 12/30/2023 9:24 AM EST Pulse 66 12/30/2023 9:24 AM EST Temperature 36.9 C (98.5 F) 12/30/2023 9:24 AM EST Respiratory Rate 18 12/30/2023 9:24 AM EST Oxygen Saturation 92% 12/30/2023 9:24 AM EST Inhaled Oxygen Concentration - - Weight 127 kg (280 lb) 12/27/2023 2:30 AM EST Height 160 cm (5' 3 ) 12/27/2023 2:30 AM EST Body Mass Index 49.6 12/27/2023 2:30 AM EST Plan of Treatment Not on file Medical Devices Implanted Type Area Elevator Pilot Device Identifier Shelf Expiration Date Model / Serial / Lot Loop Recorder LOOP RECORDER Left: Chest Insurance [facility] Advance Directives For more information, please contact: [phone] * Full Code (Latest Code Status on File) Date Activated Date Inactivated Comments 12/27/2023 3:21 AM 12/30/2023 2:53 PM -Attempt Resus citation if person has no pulse and is not breathing. -If no pulse or not breathing attempt CPR/CODE. -Call Rapid Response if patient is in distress. Care Teams Director Of Real Estate Relationship Specialty Start Date End Date Juarez Griffin MD [address] [place] [id number] PCP - General General Internal Medicine 12/30/23
--- OUTSIDE RECORDS SUMMARY | 2025-04-02 12:25 | XMS_ITS | Continuity of Care Document ---
Author Organization [facility] Infectious Disease -105 Address [address] [place] [address] Care Team Providers Care Fleet Driver Name Role Phone ZAHRAA BENAVIDES Primary Care [...] and Address Organization Details Recorded Time Syncope [id number] Active 2021 Malina Hernandez DO [address], [place], [address] , [facility] & [place] 2 15:33:04 Hypersomnia 46932801 Active 2021 Malina Hernandez DO [address], [place], [address] [facility] & [place] 2 15:34:08 Problem Notes None recorded. Procedures Surgical History Date Name Laterality Status Provider Name and Address Organization Details Recorded Time 09/25/20 23 Cystoscopy-Female completed Silvio Valdez MD [address] , [place], [address], [facility] & [place] 09/25/2023 15:26:11 04/04/20 22 Date of Last Pap Smear completed Vandana Harris [facility] & [place] 10/03/2022 14:31:43 10/28/19 22 Senior Buyer Surgery completed Vandana ELLER - [facility] - [place] & [place] 10/03/2022 14:45:45 10/28/19 17 Cholecystectomy completed Vandana ELLER - [facility] & [place] 10/03/2022 14:32:27 10/28/19 14 Other completed Vandana ELLER - [facility] & [place] 10/03/2022 14:44:51 cardiac catheterization completed Vandana ELLER - [facility] & [place] 10/03/2022 14:46:31 strabismus surgery completed Vandana ELLER - [facility] & [place] 10/03/2022 14:55:15 Imaging Results None recorded. Procedure Notes None recorded. Medical Equipment None Reported. Allergies Allergen ID Allergen Name Allergen Category Reaction Reaction Severity Criticality Documentation Date Start Date Code Code System Note Provider Name and Address Organization Details Recorded Time 81158 aspirin medicatio n chest pain wheezing moderate severe Not available 10/02/2022 1191 RxNorm Vandana catherine, [place] - [facility] & [place] 09:22:42 38364 Bactrim medicatio n arthralgi a (joint pain) muscle cramps severe severe Not available 10/02/2022 16168 9 RxNorm Vandana catherine, [place] - [facility] & [place] 09:22:49 36085 insect venom environme nt confusion cough dizziness fever flushing headache wheezing moderate moderate moderate mild moderate moderate moderate Not available 10/02/2022 74960 UNK Vandana catherine, [place] - [facility] & [place] 09:23:13 09540 Pneumococ georges vaccine Not available anaphylax is chest pain facial swelling nausea rash wheezing moderate moderate moderate moderate moderate moderate Not available 10/02/2022 96240 7 RxNorm Vandana Steven null, [place] - [facility] & [place] 09:23:25 99107 rosuvasta tin medicatio n eye swelling facial swelling respirato ry distress moderate moderate moderate Not available 10/02/2022 64495 2 RxNorm [place] Reed - [facility] - [place] & [place] 2 09:23:35 Medications Name Sig [...] % 60 /min 97.7 [degF] 49.6 kg/m2 420079. 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 Occasional Information not available 10/03/2022 Mental Status Question Answer Note LastModified by Organization D etails LastModified Time Do you feel stressed (tense, restless, nervous, or anxious, or unable to sleep at night)? [id number] Information not available 10/03/2022 Family History Relationship [...] SNOMED-CT Code Diagnosis ICD10 Code Diagnosis Note [id number] [facility] [address] 02/23/2025 13:48:33 02/23/2025 14:17:11 Recurrent urinary tract infection 013728561 N39.0 Will check lab work. Will send urine off for a culture. Will see patient back in 1 week. 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 Patient will follow up in 2 weeks. Call the office if anything persists or worsens. 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 see above Health Concerns Section Related Observation LastModified by Organization Detai ls LastModified Time None Recorded Concern Status LastModified by Organization Details LastModified Time None Recorded Payers Encounter Date Sequence Insurance Name Policy Number Policy Valdivia Covered Member ID Valdivia Member ID Guarantor Name 03/02/2025 1 [facility] (MEDICAID HMO) Lissy Valdez [id number] Lissy Valdez Notes Date Note Type Note Provider Name and Address Organization Details Recorded Time 03/02/2025 text/html patient presents to clinic for follow up. Urine culture results received. Patient denies any fever. She is scheduled to have surgery to remove her stone on . Marilou David, ELASTIC ATTACHER [employer] [address], [place], [address], [place] - [facility] - [place] & [place] 03/02/2025 13:35:40 OBGyn Episode No OBEpisode recorded.
--- OUTSIDE RECORDS SUMMARY | 2025-04-02 12:25 | XMS_ITS | Clinical Summary ---
Author Organization [employer] Address [address] [place] [address] Care Team Providers Care Yard Worker Name Role Phone Juarez Griffin MD Primary Care Provider [phone] Allergies Active Allergy Reactions Criticality Noted Date [...] Problem Noted Date Diagnosed Date Nephrolithiasis 12/27/2023 Family History Medical History Relation Name Comments Alcohol abuse Father Arthritis Father Diabetes Father Heart disease Father Hypertension Father Cancer Maternal Uncle Heart disease Maternal Uncle Hypertension Maternal Uncle Alcohol abuse Mother Arthritis Mother Heart disease Mother Hypertension Mother Mental illness Mother Heart disease Sister Hypertension Sister Relation Name Status Comments Father Maternal Uncle Mother Sister Social History Tobacco Use Types Packs/Day Years [...] place to sleep or slept in a residential (including now)? No 12/27/2023 Utilities Answer Date Recorded In the past 12 months, has t he electric, gas, oil, or water company threatened to shut off services in your home? No 12/27/2023 Interpersonal Safety Answer Date Record ed How often does anyone, branden burton family and friends, physically hurt you? Never 12/27/2023 How often does anyone, branden bruton family and friends, insult or talk down to you? Never 12/27/2023 How often does anyone, branden burton family and friends, threaten you with harm? Never 12/27/2023 How often does anyone, branden burton family and friends, scream or curse at you? Never 12/27/2023 Housing Stability Answer Date Recorded What is your living situation today? I have a [facility] place to live 12/27/2023 Think about the [...] Do you speak a language other than Frisian at [facility]? No 12/27/2023 Do you want help with [...] 12/27/2023 2:30 AM EST Plan of Treatment Health Maintenance Due Date Last Done Comments CT Colonography 1973 Colonoscopy 1973 Colorectal Cancer Screening 1973 FOBT/FIT 1973 Fit-DNA (Cologuard) 1973 Sigmoidoscopy 1973 Depression Screening (12+) 1985 HIV Screening 1988 Hepatitis C Screening 1991 DTAP/TDAP/TD VACCINES (1 - Tdap) 1992 Pap Smear 1994 Breast Cancer Screening 2013 Lipid Panel 2018 Pneumococcal 50+ years (2 of 2 - PPSV23) 2023 09/06/2021 COVID-19 VACCINE (3 - season) 06/28/202408/2022, 08/21/2021 Tobacco Cessation Counseling and Screening (12+) 12/26/2024 12/27/2023 Influenza Vaccine (Season Ended) 2025 Shingles Vaccine (Zoster) Completed 10/30/2023, Medical Devices Implanted Type Area Police Communications Operator Device Identifier Shelf Expiration Date Model / Serial / Lot Loop Recorder LOOP RECORDER Left: Chest Insurance [facility] [facility] Advance Directives For more information, please contact: [phone] * Full Code (Latest Code Status on File) Date Activated Date Inactivated Comments 12/27/2023 3:21 AM 12/30/2023 2:53 PM -Attempt Resus citation if person has no pulse and is not breathing. -If no pulse or not breathing attempt CPR/CODE. -Call Rapid Response if patient is in distress. Care Teams Yard Worker Relationship Specialty Start Date End Date Juarez Griffin MD [address] [place] [address] PCP - General General Internal Medicine 12/30/23
[2025-04-02] MEDS: SODIUM CHLORIDE 0.9% 50ML BAG 50 ML IV (12:40)
[2025-04-02] MEDS: ERTAPENEM SODIUM 1 GM in 0.9 % SODIUM CHLORIDE 50 ML IV (12:40)
[2025-04-02 12:41] VITALS: BP 113/69; PULSE 65; RESP 18; TEMP 36.9; O2SAT 97
[2025-04-02] MEDS: SODIUM CHLORIDE 0.9% 10ML FLUSH SYRINGE 10 ML IV (12:41)
[2025-04-02 13:25] VITALS: BP 110/66; PULSE 67; RESP 20; O2SAT 97
== END 2025-04-02 13:25 | disposition home or self-care (01) ==
LOC: INF 12:22
PROVIDERS: PCP Internal Medicine; Visit Provider Urology
DX: N39.0 Urinary tract infection, site not specified (principal); B96.4 Proteus (mirabilis) (morganii) as the cause of diseases classified elsewhere; Z16.24 Resistance to multiple antibiotics
CPT/HCPCS: 96365; J1335

== ENCOUNTER 2025-04-03 12:36 | Outpatient (CLI) | payer OTHER, SELFPAY ==
--- OUTSIDE RECORDS SUMMARY | 2025-04-03 12:37 | XMS_ITS | Encounter Summary ---
Author Organization [facility] Address [address] [place] [address] Care Team Providers Care Health Program Specialist Name Role Phone Juarez Griffin MD Primary Care Provider [phone] Karen Naqvi DO Unavailable [phone] Encounter Details Date Type Department Care Team ([facility] st Contact Info) Description 03/12/2025 Orders Only External Location [address] [place] [address] Provider, External Social History Tobacco Use Types [...] drink first t yue in the morning (EYE-WORKSHOP MANAGER) to steady your nerves or to [...] Comment:+ 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 Source: [facility]. This patient will require contact precautions indefinitely. 04/01/2024 Assessment Noted Time A fall risk assessment has been complete d for the patient 10/05/2024 1:53 PM EST A Body Mass Index follow-up plan has been documented for the patient 04/12/2024 12:42 PM EDT documented as of this encounter Care Teams Health Program Specialist Relationship Specialty Start Date End Date Juarez Griffin MD [address] [facility] [address] [place] [address] PCP - General 03/10/21 Karen Naqvi DO [address] [facility] [address] [place] [address] Referring Physician Obstetrics and Gynecology 09/23/24 documented as of this encounter
--- OUTSIDE RECORDS SUMMARY | 2025-04-03 12:37 | XMS_ITS | Data Portability ---
Author Organization [facility] Mahamed morgan, [facility] Address [address] [facility] [place] [address] Assessment No assessment recorded. Plan of Treatment Reminders Order Date Submit Date Provider Last Modified By Organization Details Last Modified Time Details Appointments None recorded. Lab None recorded. Referral aquatic therapy referral 2017 018 [email or web address] 2 Not available 8 11:14:18 cognitive behavioral therapy referral 2017 018 [email or web address] 2 [facility] [address] [facility], [address], [place], [address], 8 11:14:19 occupationa l therapist referral 2017 018 2 Not available 8 11:14:17 Procedures None recorded. Surgeries None recorded. Imaging None recorded. Medication Orders None recorded. Patient TargetsNo targets recorded. Patient Instructions Encounter Date Encounter Id Patient Instructions Last Modified By Organization Details Last Modified Time 08/13/2018 [id number] learning about healthy weight Not available 08/13/2018 [...] Name and Address Organization Details Recorded Time 364774 aspirin medicatio n Not available Not available Not available 08/13/2018 1191 RxNorm Melinda [facility] 8 10:01:54 Medications Name Sig Start [...] Address Organization Details Last Updated DateTime 8 538412. 12 g 48.2 kg/m2 160.02 cm 18 /min 61 /min 132 mm[Hg] 96 mm[Hg] Melinda [facility] 8 10:06:40 Social History Question Answer Notes LastModified by Organizat ion Details LastModified Time Tobacco Smoking Status Never Smoker Melinda [facility] 08/13/2018 10:02:03 What Was The Date [...] SNOMED-CT Code Diagnosis ICD10 Code Diagnosis Note [id number] CLIFF BARBER MD RHEUMATOL OGY [address] [place] [address] 08/13/2018 09:13:44 08/13/2018 10:48:47 Pain of multiple joints 47202427 M25.50 she has clinical features of Dixon OA. no features of an inflammato ry arthritis noted. no features of rheumatoid noted. 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 would suggest to avoid steroids and start OT as stated below. she can RTC with me as prn. 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 Health Concerns Section Related Observation LastModified by Organization Detai ls LastModified Time None Recorded Concern Status LastModified by Organization Details LastModified Time None Recorded Advance Directives Directive None Recorded Payers Insurance Date Sequence Insurance Name Policy Number Policy Valdivia Covered Member ID Valdivia Member ID Guarantor Name 02/03/2024 1 [facility] (MEDICAID [facility]) [id number] 01/24/2024 1 [place] [place]FS/TRADITIO NAL Lissy Morgan Pinson [id number] Lissy [facility] 02/04/2024 1 [facility] (MEDICAID HMO) [facility] [id number] [facility] 01/31/2024 1 [facility] (PP[facility] [id number] Lissy [facility] [id number] Lissy [facility] Notes Date Note Type Note Provider [...] and a normal TSH. CLIFF BARBER MD [facility] [place], [address], [facility] 08/13/2018 17:00:47 OBGyn Episode No OBEpisode recorded.
--- OUTSIDE RECORDS SUMMARY | 2025-04-03 12:37 | XMS_ITS | Encounter Summary ---
Author Organization [facility] Address [address] [place] [address] Care Team Providers Care Product Safety Technical Assistant Name Role Phone Juarez Griffin MD Primary Care Provider [phone] Karen Naqvi DO Unavailable [phone] Encounter Details Date Type Department Care Team ([facility] st Contact Info) Description 02/12/2024 Orders Only External Location [address] [place] [address] Gennaro Cuevas MD [facility] [address] [place] [address] Social History Tobacco Use Types Packs/Day Years [...] Comment:+ 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 Source: [facility]. This patient will require contact precautions indefinitely. 04/01/2024 documented as of this encounter Care Teams Product Safety Technical Assistant Relationship Specialty Start Date End Date Juarez Griffin MD [address] [place] [address] PCP - General 03/10/21 Karen Naqvi DO [facility] [address] [place] [address] Referring Physician Obstetrics and Gynecology 09/23/24 documented as of this encounter
--- OUTSIDE RECORDS SUMMARY | 2025-04-03 12:38 | XMS_ITS | Clinical Summary ---
Author Organization [employer] Address [address] [place] [address] Care Team Providers Care Supervisor Propellant Charge Loading Name Role Phone Juarez Griffin MD Primary Care Provider [phone] Allergies Active Allergy Reactions Criticality Noted Date [...] your living situation today? [facility] 12/27/2023 Think about the [...] Do you speak a language other than [place] [facility]? No 12/27/2023 Do you want help with [...] Completed 10/30/2023, Medical Devices Implanted Type Area Supervisor Bindery Device Identifier Shelf Expiration Date Model / Serial / Lot Loop Recorder LOOP RECORDER Left: Chest Insurance [employer] [facility] Advance Directives For more information, please contact: [phone] * Full Code (Latest Code Status on File) Date Activated Date Inactivated Comments 12/27/2023 3:21 AM 12/30/2023 2:53 PM -Attempt Resus citation if person has no pulse and is not breathing. -If no pulse or not breathing attempt CPR/CODE. -Call Rapid Response if patient is in distress. Care Teams Supervisor Propellant Charge Loading Relationship Specialty Start Date End Date Juarez Griffin MD [address] [place] [id number] PCP - General General Internal Medicine 12/30/23
--- OUTSIDE RECORDS SUMMARY | 2025-04-03 12:38 | XMS_ITS | Data Portability ---
Author Organization [facility] [place] [facility] [place] Alejandro ADMIN Address [address] [place] [address] Care Team Providers Care Monotyper Name Role Phone ZAHRAA BENAVIDES Primary Care Provider Assessment Encounter Date Assessment Date Assessment LastModified by Organization Details LastModified Time 08/07/2023 08/07/[address] scan images onto our system. Will review to determine the degree of stone burden bilaterally in the kidneys. Will also plan cystoscopy and pelvic exam in the office in the near future. [email or web address] Not available 08/07/2023 15:34:46 09/25/2023 09/25/2023 I [...] in 6 months with KUB and UA. [email or web address] Not available 09/25/2023 15:29:09 Plan of Treatment Reminders Order Date Submit Date Provider Last Modified By Organization Details Last Modified Time Details Appointments None recorded. Lab urinalysis, dipstick 2024 025 [email or web address] [facility] -[facility], [address], [place], [address], 5 14:18:52 CBC w/ diff 2024 025 [facility] (Registration ), [address], [place], [address], 5 16:11:55 CMP, serum or plasma 2024 025 [facility] (Registration ), [address], [place], [address], 5 15:39:03 ESR (erythrocyt e sedimentati on rate), blood [address] (Registration ), [address] [facility], [place], [address], 5 08:54:47 C-reactive protein, quantitativ e, serum or plasma [address] (Registration ), [address], [place], [address], 5 08:54:48 culture, urine 2024 025 [facility], [address], [address], [place], [address], 5 19:09:52 urinalysis, dipstick 2022 023 [email or web address] [facility], [address] [facility], [address], [place], [address], 3 16:08:29 Referral None recorded. Procedures None [...] 7.7 - 58.5 Perfo rmed at: [facility] [address] [place] [address]69 Lab Direc tor: Los carson PhD, Phone : [phone] Not Available [facility] ([facility]) [address] [facility], [place], [address], 04/03/2023 10:13:10 04/02/20 23 04/03/2023 FSH FSH, serum 5.4 mIU/m L Adult Femal e: Folli cular phase 3.5 - 12.5 Ovula tion phase 4.7 - 21.5 Lutea l phase 1.7 - 7.7 Postm enopa usal 25.8 - 134.8 Perfo rmed at: [facility] [address] [place] [address] Lab Direc tor: Los carson PhD, Phone : [phone] Not Available [facility] ([facility]) [address] [facility], [place], [address], 04/03/2023 10:14:16 08/07/20 23 08/07/2023 urina lysis , dipst ick Leukocytes (reference range) trace Not Available [facility] [address] [facility] [address] [place] [address], [address], 08/07/2023 15:15:15 08/07/2008/07/2023 urina lysis , dipst ick Nitrite (reference range:) negati ve Not Available [facility] [address] [facility] [address], [place], [address], 08/07/2023 15:15:15 08/07/20 23 08/07/2023 urina lysis , dipst ick Urobilinogen (reference range) 0.2 Not Available [facility] [address] [place] [address] [address], [place], [address], 08/07/2023 15:15:15 08/07/2008/07/2023 urina lysis , dipst ick Protein (reference range) negati ve Not Available [facility] [address], [place], [address], 08/07/2023 15:15:15 08/07/2008/07/2023 urina lysis , dipst ick pH (reference range 5-8.5) 6.0 Not Available [facility] [address], [place], [address], 08/07/2023 15:15:15 08/07/2008/07/2023 urina lysis , dipst ick Blood (reference range:) small Not Available [facility] [address] [place] [address] [address], [place], [address], 08/07/2023 15:15:15 08/07/2008/07/2023 urina lysis , dipst ick Specific [place] (reference range) 1.015 Not Available [facility] [address], [place], [address], 08/07/2023 15:15:15 08/07/2008/07/2023 urina lysis , dipst ick Ketone (reference range) negati ve Not Available [address], [place], [address], 08/07/2023 15:15:15 08/07/2008/07/2023 urina lysis , dipst ick Bilirubin (reference range) negati ve Not Available [address], [place], [address], 08/07/2023 15:15:15 08/07/20 23 08/07/2023 urina lysis , dipst ick Glucose (reference range) 250 Not Available [facility] [address] [facility] [address], [place], [address], 08/07/2023 15:15:15 08/07/20 23 08/07/2023 urina lysis , dipst ick Color (reference range: yellow-brown ) Yellow Not Available [facility] [address] [facility] [address], [place], [address], 08/07/2023 15:15:15 02/24/20 25 02/23/2025 CBC AUTO W DIFF WBC 11.3 K/uL 4.0-10 .5 high Not Available [facility] ([facility]) [address] [facility], [place], [address], 02/23/2025 15:02:28 02/24/20 25 02/23/2025 CBC AUTO W DIFF RBC 5.7 M/mm3 4.2-6. 4 Not Available [facility] ([facility]) [address], [place], [address], 02/23/2025 15:02:28 02/24/20 25 02/23/2025 CBC AUTO W DIFF HGB 15.8 gm/dL 12.5-1 6.0 Not Available [facility] ([facility]) [address] [facility], [place], [address], 02/23/2025 15:02:28 02/24/20 25 02/23/2025 CBC AUTO W DIFF HCT 48.8 % 37.0-4 7.0 high Not Available [facility] ([facility]) [address], [place], [address], 02/23/2025 15:02:28 02/24/20 25 02/23/2025 CBC AUTO W DIFF MCV 86.4 fL 78-100 Not Available [facility] ([facility]) [address], [place], [address], 02/23/2025 15:02:28 02/24/20 25 02/23/2025 CBC AUTO W DIFF MCH 28.0 pg 27-31 Not Available [facility] ([facility]) [address], [place], [address], 02/23/2025 15:02:28 02/24/20 25 02/23/2025 CBC AUTO W DIFF MCHC 32.4 g/dL 32-36 Not Available [facility] ([facility]) [address], [place], [address], 02/23/2025 15:02:28 02/24/20 25 02/23/2025 CBC AUTO W DIFF RDW 13.7 % 11.5-1 4.0 Not Available [facility] ([facility]) [address], [place], [address], 02/23/2025 15:02:28 02/24/20 25 02/23/2025 CBC AUTO W DIFF platelet count 380 K/uL 150-45 0 Not Available [facility] ([facility]) [address], [place], [address], 02/23/2025 15:02:28 02/24/20 25 02/23/2025 CBC AUTO W DIFF MPV 10.3 fL 6-9.5 high Not Available [facility] ([facility]) [address], [place], [address], 02/23/2025 15:02:28 02/24/20 25 02/23/2025 CBC AUTO W DIFF neutrophil% 66.5 % 43-65 high Not Available [facility] ([facility]) [address], [place], [address], 02/23/2025 15:02:28 02/24/20 25 02/23/2025 CBC AUTO W DIFF lymphocyte% 24.3 % 20.5-4 5.5 Not Available [facility] ([facility]) [address], [place], [address], 02/23/2025 15:02:28 02/24/20 25 02/23/2025 CBC AUTO W DIFF monocyte% 6.0 % 5.5-11 .7 Not Available [facility] ([facility]) [address], [place], [address], 02/23/2025 15:02:02/24/20 25 02/23/2025 CBC AUTO W DIFF eosinophil% 2.3 % 0.9-2. 9 Not Available [facility] ([facility]) [address] [facility], [place], [address], 02/23/2025 15:02:28 02/24/20 25 02/23/2025 CBC AUTO W DIFF basophil% 0.6 % 0.2-1. 0 Not Available [facility] ([facility]) [address] [place], [address], 02/23/2025 15:02:28 02/24/20 25 02/23/2025 CBC AUTO W DIFF immature granulocytes % 0.3 % 0.0-0. 8 Not Available [facility] ([facility]) [address] [place], [address], 02/23/2025 15:02:28 02/24/20 25 02/23/2025 CBC AUTO W DIFF nucleated red blood cells % 0.0 % Not Available [facility] ([facility]) [address] [place], [address], 02/23/2025 15:02:28 02/24/20 25 02/23/2025 CBC AUTO W DIFF neutrophil# 7.5 K/uL 2.2-4. 8 high Not Available [facility] ([facility]) [address] [facility], [place], [address], 02/23/2025 15:02:28 02/24/20 25 02/23/2025 CBC AUTO W DIFF lymphocyte# 2.7 cell/ mcL 1.3-2. 9 Not Available [facility] ([facility]) [address], [place], [address], 02/23/2025 15:02:28 02/24/20 25 02/23/2025 CBC AUTO W DIFF monocyte# 0.7 cell/ mcL 0.3-0. 8 Not Available [facility] ([facility]) [address] [facility], [place], [address], 02/23/2025 15:02:28 02/24/20 25 02/23/2025 CBC AUTO W DIFF eosinophil# 0.3 cell/ mcL 0-0.2 high Not Available [facility] ([facility]) [address] [facility], [place], [address], 02/23/2025 15:02:28 02/24/20 25 02/23/2025 CBC AUTO W DIFF basophil# 0.1 cell/ mcL 0.0-1. 0 Not Available [facility] ([facility]) [address] [facility], [place], [address], 02/23/2025 15:02:28 02/24/20 25 02/23/2025 CBC AUTO W DIFF immature gramulocytes # 0.03 K/uL Not Available [facility] ([facility]) [address] [facility], [place], [address], 02/23/2025 15:02:28 02/24/20 25 02/23/2025 CBC AUTO W DIFF nucleated red blood cells # 0.00 K/uL Not Available [facility] ([facility]) [address] [facility], [place], [address], 02/23/2025 15:02:28 04/29/02/23/2025 CBC AUTO W DIFF manual differential NO Not Available [facility] ([facility]) [address], [place], [address], 02/23/2025 15:02:28 02/24/20 25 02/23/2025 COMP METAB OLIC PANEL sodium 138 mmol/ L 136-14 5 Not Available [facility] ([facility]) [address], [place], [address], 02/23/2025 15:39:03 02/24/20 25 02/23/2025 COMP METAB OLIC PANEL potassium 3.7 mmol/ L 3.6-5. 0 Not Available [facility] ([facility]) [address] , [place], [address], 02/23/2025 15:39:03 02/24/20 25 02/23/2025 COMP METAB OLIC PANEL chloride 98 mmol/ L 98-107 Not Available [facility] ([facility]) [address] , [place], [address], 02/23/2025 15:39:03 02/24/20 25 02/23/2025 COMP METAB OLIC PANEL carbon dioxide 26.8 mmol/ L 21.0-3 2.0 Not Available [facility] ([facility]) [address] , [place], [address], 02/23/2025 15:39:03 02/24/20 25 02/23/2025 COMP METAB OLIC PANEL anion gap 16.9 Not Available [facility] ([facility]) [address] [place], [address], 02/23/2025 15:39:03 02/24/20 25 02/23/2025 COMP METAB OLIC PANEL glucose 200 mg/dL 70-120 high Not Available [facility] ([facility]) [address], [place], [address], 02/23/2025 15:39:03 02/24/20 25 02/23/2025 COMP METAB OLIC PANEL BUN 12 mg/dL 7-18 Not Available [facility] ([facility]) [address], [place], [address], 02/23/2025 15:39:03 02/24/20 25 02/23/2025 COMP METAB OLIC PANEL creatinine 1.1 mg/dL 0.6-1. 3 Not Available [facility] ([facility]) [address], [place], [address], 02/23/2025 15:39:03 02/24/20 25 02/23/2025 COMP METAB [...] brown ing kiney funct ion. Not Available [facility] ([facility]) [address] , [place], [address], 02/23/2025 15:39:03 02/24/20 25 02/23/2025 COMP METAB OLIC PANEL osmolality (calculated) 293 mOsm/ kg 275-30 1 OSMOL ALITY IS A CALCU LATIO N UTILI ZING THE SERUM /PLAS MA SODIU M, GLUCO SE AND UREA NITRO GEN (BUN) LEVEL S. FOR THE MOST ACCUR ATE RESUL T A MEASU RED SERUM OSMOL ALITY IS SUGGE STED. Not Available [facility] ([facility]) [address], [place], [address], 02/23/2025 15:39:03 02/24/20 25 02/23/2025 COMP METAB OLIC PANEL total protein 8.1 g/dL 6.4-8. 2 Not Available [facility] ([facility]) [address] , [place], [address], 02/23/2025 15:39:03 02/24/20 25 02/23/2025 COMP METAB OLIC PANEL albumin 3.6 g/dL 3.4-5. 0 Not Available [facility] ([facility]) [address] , [place], [address], 02/23/2025 15:39:03 02/24/20 25 02/23/2025 COMP METAB OLIC PANEL globulin 4.5 Not Available [facility] ([facility]) [address], [place], [address], 02/23/2025 15:39:03 02/24/20 25 02/23/2025 COMP METAB OLIC PANEL alb/glob ratio 0.8 0.7-2 Not Available [facility] ([facility]) [address], [place], [address], 02/23/2025 15:39:03 02/24/20 25 02/23/2025 COMP METAB OLIC PANEL calcium 10.2 mg/dL 8.5-10 .5 Not Available [facility] ([facility]) [address], [place], [address], 02/23/2025 15:39:03 02/24/20 25 02/23/2025 COMP METAB OLIC PANEL bilirubin total 0.60 mg/dL 0.10-1 .00 Not Available [facility] ([facility]) [address] [place], [address], 02/23/2025 15:39:03 02/24/20 25 02/23/2025 COMP METAB OLIC PANEL AST (SGOT) 46 U/L 0-37 high Not Available [facility] ([facility]) [address], [place], [address], 02/23/2025 15:39:03 02/24/20 25 02/23/2025 COMP METAB OLIC PANEL ALT (SGPT) 78 U/L 0-65 high Not Available [facility] ([facility]) [address], [place], [address], 02/23/2025 15:39:03 02/24/20 25 02/23/2025 COMP METAB OLIC PANEL alk phosphatase 111 U/L 46-116 Not Available [facility] ([facility]) [address] [facility], [place], [address], 02/23/2025 15:39:03 02/24/20 25 02/23/2025 C-KARLI CTIVE PROTE IN (CRP) C-reactive protein, quant 2.0 mg/dL 0.05-0 .300 high Not Available [facility] ([facility]) [address] [facility], [place], [address], 02/23/2025 15:40:11 02/24/20 25 02/23/2025 SED RATE sed rate auto 9 0-20 Not Available [facility] ([facility]) [address] [facility], [place], [address], 02/23/2025 15:43:35 02/24/20 25 02/27/2025 URINE CULTU RE,CO MPREH ENSIV E urine culture,comp rehensive FINAL REPORT abnormal Not Available [facility] ([facility]) [address] [facility], [place], [address], 02/27/2025 19:09:52 02/24/20 25 02/27/2025 URINE CULTU [...] ng units per mL Not Available [facility] ([facility]) [address] [facility], [place], [address], 02/27/2025 19:09:52 02/24/2002/27/2025 URINE CULTU RE,CO MPREH [...] e Not Available [facility] ([facility]) [address] [facility], [place], [address], 02/27/2025 19:09:52 02/24/2002/27/2025 URINE CULTU RE,CO MPREH [...] Vanco mycin R S Not Available [facility] ([facility]) [address] [facility], [place], [address], 02/27/2025 19:09:52 02/24/20 25 02/23/2025 urina lysis , dipst ick Leukocytes (reference range) trace Not Available [place] [address], [place], [address], 02/23/2025 14:16:48 02/24/20 25 02/23/2025 urina lysis , dipst ick Nitrite (reference range:) negati ve Not Available [place] [address] [address] [facility] [address], [place], [address], 02/23/2025 14:16:48 02/24/20 25 02/23/2025 urina lysis , dipst ick Urobilinogen (reference range) 0.2 Not Available [place] [address] [address] [facility] [address], [place], [address], 02/23/2025 14:16:48 02/24/20 25 02/23/2025 urina lysis , dipst ick Protein (reference range) negati ve Not Available [place] [address] [address] [facility] [address], [place], [address], 02/23/2025 14:16:48 02/24/20 25 02/23/2025 urina lysis , dipst ick pH (reference range 5-8.5) 6.0 Not Available [place] [address] [address] [facility] [address], [place], [address], 02/23/2025 14:16:48 02/24/20 25 02/23/2025 urina lysis , dipst ick Blood (reference range:) small Not Available [place] [address] [address] [facility] [address], [place], [address], 02/23/2025 14:16:48 02/24/20 25 02/23/2025 urina lysis , dipst ick Specific [place] (reference range) 1.015 Not Available [place] [address] [address] [facility] [address], [place], [address], 02/23/2025 14:16:48 02/24/20 25 02/23/2025 urina lysis , dipst ick Ketone (reference range) negati ve Not Available [place] [address] [address] [facility] [address], [place], [address], 02/23/2025 14:16:48 02/24/20 25 02/23/2025 urina lysis , dipst ick Bilirubin (reference range) negati ve Not Available [place] [address] [address] [facility] [address], [place], [address], 02/23/2025 14:16:48 02/24/20 25 02/23/2025 urina lysis , dipst ick Glucose (reference range) 500 Not Available [place] [address] [address] [facility] [address], [place], [address], 02/23/2025 14:16:48 02/24/20 25 02/23/2025 urina lysis , dipst ick Color (reference range: yellow-brown ) Dark Yellow Not Available [place] [address] [address] [facility] [address], [place], [address], 02/23/2025 14:16:48 Result Notes None recorded. Problems Name Problem SNOMED Code Status Onset Date Resolution Date Notes Provider Name and Address Organization Details Recorded Time Syncope 194162476 Active 2021 Malina Hernandez DO [address], [place], [address] , [facility] [place] [facility] [place] 15:33:04 Hypersomnia 57408312 Active 2021 Malina Hernandez DO [address] [facility], [place], [address] , [place] - [facility] & [place] 15:34:08 Problem Notes None recorded. Procedures Surgical History Date Name Laterality Status Provider Name and Address Organization Details Recorded Time 09/25/20 23 Cystoscopy-Female completed Silvio Valdez MD [address] [facility], [place], [address], [place] - [facility] [place] 09/25/2023 15:26:11 04/04/20 22 Date of Last Pap Smear completed Vandana Eugenioa [place] - [facility] [place] 10/03/2022 14:31:43 10/28/19 22 Chief Design Drafter Surgery completed Vandana Dalla [place] - [facility] [place] 10/03/2022 14:45:45 10/28/19 17 Cholecystectomy completed Vandana Dalla [place] - [facility] & [place] 10/03/2022 14:32:27 10/28/19 14 Other completed Vandana Dalla [place] [facility] [place] 10/03/2022 14:44:51 cardiac catheterization completed Vandana Dalla [place] - [facility] & [place] 10/03/2022 14:46:31 strabismus surgery completed Vandana Dalla [place] - [facility] [place] 10/03/2022 14:55:15 Imaging Results None recorded. Procedure Notes None recorded. Medical Equipment None Reported. Allergies Allergen ID Allergen Name Allergen Category Reaction Reaction Severity Criticality Documentation Date Start Date Code Code System Note Provider Name and Address Organization Details Recorded Time 55434 aspirin medicatio n chest pain wheezing moderate severe Not available 10/02/2022 1191 RxNorm Vandana Eugenioa null, [place] - [facility] & [place] 09:22:42 96643 Bactrim medicatio n arthralgi a (joint pain) muscle cramps severe severe Not available 10/02/2022 05227 9 RxNorm Vandana Eugenioa null, [place] - [facility] & [place] 09:22:49 28773 insect venom environme nt confusion cough dizziness fever flushing headache wheezing moderate moderate moderate mild moderate moderate moderate Not available 10/02/2022 69286 UNK Vandana catherine, [facility] - [facility] & [place] 2 09:23:13 71477 Pneumococ georges vaccine Not available anaphylax is chest pain facial swelling nausea rash wheezing moderate moderate moderate moderate moderate moderate Not available 10/02/2022 06856 7 RxNorm Vandana catherine, [facility] [place] [facility] & [place] 2 09:23:25 69512 rosuvasta tin medicatio n eye swelling facial swelling respirato ry distress moderate moderate moderate Not available 10/02/2022 97212 2 RxNorm Vandana catherine, [facility] - [facility] & [place] 2 09:23:35 Medications Name Sig [...] % 80 /min 98.6 [degF] 49.6 kg/m2 175688. 86 g 116 mm[Hg] 100 mm[Hg] Bianca Smith [place] - [facility] 5 13:59:18 Date Recorded Body height Heart rate Oxygen saturation Oxygen saturation in Arterial blood by Pulse oximetry Heart rate Body temperature Body mass index (BMI) Body weight Systolic blood pressure Diastolic blood pressure Provider Name and Address Organization Details Last Updated DateTime 5 160.02 cm 60 /min 97 % 97 % 60 /min 97.7 [degF] 49.6 kg/m2 898530. 86 g 119 mm[Hg] 79 mm[Hg] Bianca ELL[place] - [facility] 5 13:31:54 Date Recorded Body height Body temperature Oxygen saturation Oxygen saturation in Arterial blood by Pulse oximetry Inhaled oxygen flow rate Heart rate Body mass index (BMI) Body weight Systolic blood pressure Diastolic blood pressure Provider Name and Address Organization Details Last Updated DateTime 3 157.48 cm 97.1 [degF] 98 % 98 % 2 L/min 89 /min 48.3 kg/m2 237378. 39 g 128 mm[Hg] 98 mm[Hg] Phillip Morrison [facility] & [place] 3 13:04:48 Date Recorded Body height Body mass index (BMI) Body weight Systolic blood pressure Diastolic blood pressure Provider Name and Address Organization Details Last Updated DateTime 08/07/2023 157.48 cm 49.4 kg/m2 030487.9 4 g 125 mm[Hg] 75 mm[Hg] Britney Yee [facility] & [place] 3 15:05:24 Date Recorded Body height Body mass index (BMI) Body weight Systolic blood pressure Diastolic blood pressure Provider Name and Address Organization Details Last Updated DateTime 09/25/2023 157.48 cm 51.2 kg/m2 489468.8 6 g 126 mm[Hg] 76 mm[Hg] Ioana Ayala [facility] & [place] 3 15:07:04 Social History Question Answer Notes LastModified by [facility] [employer] [facility] ion Details LastModified Time Tobacco Smoking Status Never Smoker [email or web address] [place] 10/03/2022 14:32:09 Do You Have An Advance Directive? No Information not available 10/03/2022 Are You Blind Or Do You Have Difficulty Seeing? No Information not available 10/03/2022 What Was The Date Of Your Most Recent Tobacco Screening? 09/17/2022 Information not available 10/03/2022 Do You Have Any Pets? Yes [email or web address] Information not available 09/25/2023 Are You Passively Exposed To Smoke? No Information not available 10/03/2022 Are You Currently In School? No [employer] [email or web address] Information not available 09/25/2023 Sex: Female Functional Status Question Answer Note LastModified by Organizat ion Details LastModified Time Do you use any illicit or recreational drugs? No Information not available 10/03/2022 What is your level of alcohol consumption? 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 Occasional Information not available 10/03/2022 Mental Status Question Answer Note LastModified by Organization D etails LastModified Time Do you feel stressed (tense, restless, nervous, or anxious, or unable to sleep at night)? [id number] Information not available 10/03/2022 Family History Relationship [...] SNOMED-CT Code Diagnosis ICD10 Code Diagnosis Note [id number] DO [facility]ell [facility] [address] [facility] [place] [address] 10/03/2022 14:07:23 10/03/2022 15:38:25 Syncope [id number] R55 She has been experienci ng these stereotypi georges passing out episodes for five years. No definite witnessed convulsion s but some associated brief confusion afterwards .will order EEG to rule out neurologic causes of syncope Hypersomnia 60818916 G47 .10 She describes some significan t episodes of pathologic al sleepiness . She will fall asleep without warning in the middle of talking. This is very infrequent but can be suggestive of narcolepsy . Will order PSG with MSLT to evaluate this in more detail. 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 [id number] Silvio Valdez MD [facility] Urology [address] [place] [address],[address] [place] [address] 08/07/2023 14:35:57 08/07/2023 15:40:17 Recurrent urinary tract infection 464924134 N39.0 Kidney stone 93563558 N2 0.0 Chronic th oracic back pain [id number] 00668 M54.6 Microscopic hematuria 19 1388735 R31.29 [id number] Silvio Valdez MD [facility] Urology [address] [place] [address],[address] [place] [address] 09/25/2023 14:26:57 09/25/2023 15:25:02 Recurrent urinary tract infection 673079391 N39.0 Kidney stone 83856781 N2 0.0 Microscopic hematuria 19 7448989 R31.29 [id number] [facility] [address] [facility] [address] [place] [address] 02/23/2025 13:48:33 02/23/2025 14:17:11 Recurrent urinary tract infection 266533563 N39.0 Will check lab work. Will send urine off for a culture. Will see patient back in 1 week. 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 Patient will follow up in 2 weeks. Call the office if anything persists or worsens. 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 see above Health Concerns Section Related Observation LastModified by Organization Detai ls LastModified Time None Recorded Concern Status LastModified by Organization Details LastModified Time None Recorded Advance Directives Directive N: Payers Insurance Date Sequence Insurance Name Policy Number Policy Valdivia Covered Member ID Valdivia Member ID Guarantor Name 09/18/2023 1 Nadanu [facility] (POS II) [facility] [id number] [facility] 02/27/2025 1 [facility] (MEDICAID HMO) [facility] [id number] [facility] Notes Date Note Type Note [...] time. 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 Micheline Lackey MD [address] [facility], [place], [address], [facility] - [place] & [place] 04/18/2023 12:50:43 08/07/2023 text/html Location: Histor y [...] post hysterectomy. Silvio Valdez MD [address] [facility], [place], [address], [facility] - [facility] - [place] & [place] 08/07/2023 15:35:17 09/25/2023 text/html Patient returns to [...] Silvio Valdez MD [address], [place], [address], [facility] & [place] 09/25/2023 15:30:10 02/23/2025 text/html patient presents to [...] 2025. Marilou David APRN [address], [place], [address], [facility] & [place] 02/24/2025 10:59:38 03/02/2025 text/html patient presents to clinic for follow up. Urine culture results received. Patient denies any fever. She is scheduled to have surgery to remove her stone on . Marilou David APRN [address], [place], [address], [facility] - [facility] & [place] 03/02/2025 13:35:40 OBGyn Episode No OBEpisode recorded.
--- OUTSIDE RECORDS SUMMARY | 2025-04-03 12:38 | XMS_ITS | Continuity of Care Document ---
Author Organization [facility] Infectious Disease -[address] [place] [address] Care Team Providers Care Customer Success Representative Name Role Phone ZAHRAA BENAVIDES Primary Care [...] and Address Organization Details Recorded Time Syncope 094633132 Active 2021 Malina Hernandez DO [address], [place], [address] , [facility] & [place] 2 15:33:04 Hypersomnia 19558627 Active 2021 Malina Hernandez DO [address], [place], [address] [facility] & [place] 2 15:34:08 Problem Notes None recorded. Procedures Surgical History Date Name Laterality Status Provider Name and Address Organization Details Recorded Time 09/25/20 23 Cystoscopy-Female completed Silvio Valdez MD [address] , [place], [address], [facility] & [place] 09/25/2023 15:26:11 04/04/20 22 Date of Last Pap Smear completed Vandana Harris [facility] & [place] 10/03/2022 14:31:43 10/28/19 22 Enterprise Systems Architect Surgery completed Vandana ELLER - [facility] - [place] & [place] 10/03/2022 14:45:45 10/28/19 17 Cholecystectomy completed Vandana ELLER - [facility] & [place] 10/03/2022 14:32:27 10/28/19 14 Other completed Vandana ELLER - [facility] & [place] 10/03/2022 14:44:51 cardiac catheterization completed Vandana ELLER - [facility] & [place] 10/03/2022 14:46:31 strabismus surgery completed Vandana ELLER - [facility] & [place] 10/03/2022 14:55:15 Imaging Results None recorded. Procedure Notes None recorded. Medical Equipment None Reported. Allergies Allergen ID Allergen Name Allergen Category Reaction Reaction Severity Criticality Documentation Date Start Date Code Code System Note Provider Name and Address Organization Details Recorded Time 82135 aspirin medicatio n chest pain wheezing moderate severe Not available 10/02/2022 1191 RxNorm Vandana catherine, RAFITA - [facility] & [place] 09:22:42 74691 Bactrim medicatio n arthralgi a (joint pain) muscle cramps severe severe Not available 10/02/2022 70302 9 RxNorm Vandana catherine, RAFITA - [facility] & [place] 09:22:49 58811 insect venom environme nt confusion cough dizziness fever flushing headache wheezing moderate moderate moderate mild moderate moderate moderate Not available 10/02/2022 04969 UNK Vandana catherine, RAFITA - [facility] & [place] 09:23:13 54774 Pneumococ georges vaccine Not available anaphylax is chest pain facial swelling nausea rash wheezing moderate moderate moderate moderate moderate moderate Not available 10/02/2022 76444 7 RxNorm Vandana Steven null, [place] - [facility] & [place] 09:23:25 19228 rosuvasta tin medicatio n eye swelling facial swelling respirato ry distress moderate moderate moderate Not available 10/02/2022 63048 2 RxNorm RAFITA Reed - [facility] - [place] & [place] 2 09:23:35 Medications Name Sig [...] % 60 /min 97.7 [degF] 49.6 kg/m2 382950. 86 g 119 mm[Hg] 79 mm[Hg] Bianca Smith [facility] & [place] 13:31:54 Social History Question Answer Notes LastModified by Organizat ion Details LastModified Time Tobacco Smoking Status [facility] [place] 10/03/2022 14:32:09 Do You Have An Advance Directive? No Information not available 10/03/2022 Are You Blind Or Do You Have Difficulty Seeing? No Information not available 10/03/2022 What Was The Date Of Your Most Recent Tobacco Screening? 09/17/2022 Information not available 10/03/2022 Do You Have Any Pets? Yes [email or web address] Information not available 09/25/2023 Are You Passively Exposed To Smoke? No Information not available 10/03/2022 Are You Currently In School? No MASTERS [email or web address] Information not available 09/25/2023 Sex: Female Functional Status Question Answer Note LastModified by Organizat ion Details LastModified Time Do you use any illicit or recreational drugs? No Information not available 10/03/2022 What is your level of alcohol consumption? 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 Occasional Information not available 10/03/2022 Mental Status Question Answer Note LastModified by Organization D etails LastModified Time Do you feel stressed (tense, restless, nervous, or anxious, or unable to sleep at night)? [id number] Information not available 10/03/2022 Family History Relationship [...] SNOMED-CT Code Diagnosis ICD10 Code Diagnosis Note [id number] [facility] [address] 02/23/2025 13:48:33 02/23/2025 14:17:11 Recurrent urinary tract infection 124400125 N39.0 Will check lab work. Will send urine off for a culture. Will see patient back in 1 week. 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 Patient will follow up in 2 weeks. Call the office if anything persists or worsens. 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 Urine culture results received. Patient denies any fever. She is scheduled to have surgery to remove her stone on . Marilou David, HEATING ELEMENT WINDER [address], [place], [address], [place] - [facility] - [place] & [place] 03/02/2025 13:35:40 OBGyn Episode No OBEpisode recorded.
--- OUTSIDE RECORDS SUMMARY | 2025-04-03 12:38 | XMS_ITS | Continuity of Care Document ---
Author Organization [facility] Infectious Disease -105 Address [address] [facility] [address] [place] [address] Care Team Providers Care Production Operations Inspector Name Role Phone SHERI BENAVIDESGHT Primary Care Provider Assessment No assessment recorded. Plan of Treatment Reminders Order Date Submit Date Provider Last Modified By Organization Details Last Modified Time Details Appointments None recorded. Lab urinalysis, dipstick [address] Infectious Disease -105, [address] [facility] [address], [place], [address], 14:18:52 CBC w/ diff 2024 025 [facility] (Registration ), [address] [facility], [place], [address], 16:11:55 CMP, serum or plasma 2024 025 [facility] (Registration ), [address] [facility], [place], [address], 5 15:39:03 ESR (erythrocyt e sedimentati on rate), blood [address] (Registration ), [address] [facility], [place], [address], 5 08:54:47 C-reactive protein, quantitativ e, serum or plasma 2024 025 [email or web address] [facility] (Registration ), [address], [place], [address], 08:54:48 culture, urine 2024 025 [facility], [address], [address], [place], [address], 19:09:52 Referral None recorded. Procedures None recorded. Surgeries None recorded. Imaging None recorded. Medication Orders None recorded. Patient TargetsNo targets recorded. Patient InstructionsNo instructions recorded. Reason for Referral None Reported. Results Created Date Observation Date Name Description Value Unit Range Abnormal Flag Note LastModifiedBy Organization Detail LastModifiedTime 02/24/2002/23/2025 urina lysis , dipst ick Leukocytes (reference range) trace Not Available [facility] Infectious Disease -[facility] [address] [facility] [address], [place], [address], 02/23/2025 14:16:48 02/24/20 25 02/23/2025 urina lysis , dipst ick Nitrite (reference range:) negati ve Not Available [facility] Infectious Disease -[facility] [address], [place], [address], 02/23/2025 14:16:48 02/24/20 25 02/23/2025 urina lysis , dipst ick Urobilinogen (reference range) 0.2 Not Available [facility] Infectious Disease -[facility] [address], [place], [address], 02/23/2025 14:16:48 02/24/20 25 02/23/2025 urina lysis , dipst ick Protein (reference range) negati ve Not Available [facility] Infectious Disease -[facility] [address] [facility] [address], [place], [address], 02/23/2025 14:16:48 02/24/20 25 02/23/2025 urina lysis , dipst ick pH (reference range 5-8.5) 6.0 Not Available [place] [address] [address] [facility] [address], [place], [address], 02/23/2025 14:16:48 02/24/20 25 02/23/2025 urina lysis , dipst ick Blood (reference range:) small Not Available [place] [address] [facility] [place] [facility] [address], [place], [address], 02/23/2025 14:16:48 02/24/20 25 02/23/2025 urina lysis , dipst ick Specific [place] (reference range) 1.015 Not Available [place] [address] [facility] [address], [place], [address], 02/23/2025 14:16:48 02/24/20 25 02/23/2025 urina lysis , dipst ick Ketone (reference range) negati ve Not Available [place] [address] [facility] [address], [place], [address], 02/23/2025 14:16:48 02/24/20 25 02/23/2025 urina lysis , dipst ick Bilirubin (reference range) negati ve Not Available [place] [address] [facility] [address], [place], [address], 02/23/2025 14:16:48 02/24/20 25 02/23/2025 urina lysis , dipst ick Glucose (reference range) 500 Not Available [place] [address] [facility] [address], [place], [address], 02/23/2025 14:16:48 02/24/20 25 02/23/2025 urina lysis , dipst ick Color (reference range: yellow-brown ) Dark Yellow Not Available [facility] Infectious Disease -[address], [place], [address], 02/23/2025 14:16:48 Result Notes None recorded. Problems Name Problem SNOMED Code Status Onset Date Resolution Date Notes Provider Name and Address Organization Details Recorded Time Syncope 650828198 Active 2021 Malina Hernandez DO [address] [facility], [place], [address] , [place] - [facility] - [place] & [place] 15:33:04 Hypersomnia 14649858 Active 2021 Malina Hernandez DO [address] [facility], [place], [address] , [place] - [facility] - [place] & [place] 15:34:08 Problem Notes None recorded. Procedures Surgical History Date Name Laterality Status Provider Name and Address Organization Details Recorded Time 09/25/20 23 Cystoscopy-Female completed Silvio Valdez MD [address] [facility], [place], [address], [place] - [facility] - [place] & [place] 09/25/2023 15:26:11 04/04/20 22 Date of Last Pap Smear completed Vandana Dalla [place] - [facility] - [place] & [place] 10/03/2022 14:31:43 10/28/19 22 Software Testing Specialist Surgery completed Vandana Dalla [place] - [facility] - [place] & [place] 10/03/2022 14:45:45 10/28/19 17 Cholecystectomy completed Vandana Dalla [place] - [facility] - [place] & [place] 10/03/2022 14:32:27 10/28/19 14 Other completed Vandana Dalla [place] - [facility] - [place] & [place] 10/03/2022 14:44:51 cardiac catheterization completed Vandana Dalla [place] - [facility] - [place] & [place] 10/03/2022 14:46:31 strabismus surgery completed Vandana Dalla [place] - [facility] - [place] & [place] 10/03/2022 14:55:15 Imaging Results None recorded. Procedure Notes None recorded. Medical Equipment None Reported. Allergies Allergen ID Allergen Name Allergen Category Reaction Reaction Severity Criticality Documentation Date Start Date Code Code System Note Provider Name and Address Organization Details Recorded Time 82115 aspirin medicatio n chest pain wheezing moderate severe Not available 10/02/2022 1191 RxNorm [facility]ana catherine, [facility] [place] 2 09:22:42 22484 Bactrim medicatio n arthralgi a (joint pain) muscle cramps severe severe Not available 10/02/2022 49343 9 RxNorm Vadnana catherine, RAFITA DARLING [facility] & [place] 2 09:22:49 56358 insect venom environme nt confusion cough dizziness fever flushing headache wheezing moderate moderate moderate mild moderate moderate moderate Not available 10/02/2022 09055 UNK Vandana catherine, RAFITA Shea [facility] & [place] 2 09:23:13 66372 Pneumococ georges vaccine Not available anaphylax is chest pain facial swelling nausea rash wheezing moderate moderate moderate moderate moderate moderate Not available 10/02/2022 66929 7 RxNorm Vandana catherine, RAFITA DARLING [facility] & [place] 2 09:23:25 44182 rosuvasta tin medicatio n eye swelling facial swelling respirato ry distress moderate moderate moderate Not available 10/02/2022 35609 2 RxNorm Vandana catherine, RAFITA DARLING [facility] & [place] 2 09:23:35 Medications Name [...] % 80 /min 98.6 [degF] 49.6 kg/m2 635970. 86 g 116 mm[Hg] 100 mm[Hg] Bianca Smith [place] - [facility] - [place] & [place] 5 13:59:18 Social History Question Answer Notes LastModified by Post[employer] Details LastModified Time Tobacco Smoking Status Never Smoker Vandana Harris [place], [place] - [facility] - [place] & [place] 10/03/2022 14:32:09 Do You Have An Advance Directive? No Information not available 10/03/2022 Are You Blind Or Do You Have Difficulty Seeing? No Information not available 10/03/2022 What Was The Date Of Your Most Recent Tobacco Screening? 09/17/2022 Information not available 10/03/2022 Do You Have Any Pets? Yes [email or web address] Information not available 09/25/2023 Are You Passively Exposed To Smoke? No Information not available 10/03/2022 Are You Currently In School? No MAST[employer] [email or web address] Information not available 09/25/2023 Sex: Female Functional Status Question Answer Note LastModified by [employer] Details LastModified Time Do you use any illicit or recreational drugs? No Information not available 10/03/2022 What is your level of alcohol consumption? 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 Occasional Information not available 10/03/2022 Mental Status Question Answer Note LastModified by Organization D etails LastModified Time Do you feel stressed (tense, restless, nervous, or anxious, or unable to sleep at night)? [id number] Information not available 10/03/2022 Family History Relationship [...] SNOMED-CT Code Diagnosis ICD10 Code Diagnosis Note [id number] Marilou Herbert in, SERVICE DESK ANALYST [facility] Infectiou s Disease -[address] [place] [address] 02/23/2025 13:48:33 02/23/2025 14:17:11 Recurrent urinary tract infection 572866154 N39.0 Will check lab work. Will send urine off for a culture. Will see patient back in 1 week. Health Concerns Section Related Observation LastModified by Organization Detai ls LastModified Time None Recorded Concern Status LastModified by Organization Details LastModified Time None Recorded Payers Encounter Date Sequence Insurance Name Policy Number Policy Valdivia Covered Member ID Valdivia Member ID Guarantor Name 02/23/2025 1 [facility] (MEDICAID HMO) Lissystas Valdez [id number] Lissy Valdez Notes Date Note Type Note [...] 2025. Marilou David, PREETI [address], [place], [address], [facility] - [place] & [place] 02/24/2025 10:59:38 OBGyn Episode No OBEpisode recorded.
--- OUTSIDE RECORDS SUMMARY | 2025-04-03 12:38 | XMS_ITS | Clinical Summary ---
Author Organization [facility] Address [address] [place] [address] Care Team Providers Care Bioinformatician Name Role Phone Juarez Griffin MD Primary Care Provider [phone] Karen Naqvi DO Unavailable [phone] Allergies Active Allergy Reactions Criticality Noted Date [...] Team Description 03/12/2025 Orders Only External Location [address] [place] [phone] Provider, External from Last 3 Months Immunizations [...] drink first t yue in the morning (EYE-MAMMOGRAPHY SUPERVISOR) to steady your nerves or to get [...] PPSV23) 11/01/2021 09/06/2021 [facility]Y-Breast Cancer Screening 2023 [id number] Vaccine ( - season) 2024 10/07/2022, 08/21/2021 [...] this topic Medical Devices Implanted Type Area Immigration Specialist Device Identifier Shelf Expiration Date Model / Serial / Lot Stent Ureteral Double Pigtail Pos 6fr 24cm - [id number] - [id number] Implanted:Qty: 1 on 04/11/2024 by Harvey Macdonald MD at [facility] Stent Right: Ureter [id number] 01/02/2026 [id number] / [id number] / [id number] Loop Recorder-2016 Implanted:04/28 (Quantity not on file) Chest Stockpulse [id number] / / Procedures Procedure Name Priority [...] Reactive Non Reactive 04/10/2024 7:25 PM EDT [facility] Comment:Screening for HIV 1 & 2 antibodies, and P24 antigen is NONREACTIVE. No confirmatory testing is required. Blood Venous blood specimen / Unknown Venipuncture / Unknown 04/10/2024 6:11 PM EDT 04/10/2024 6:27 PM EDT us Susan Mcclure MD LAB BLOOD ORDERABLES Final Re sult Performing Organization Address [facility] Co de Phone Number HEALTHCARE LAB [address] [place] [address] * Hepatitis C Antibody - ED (04/10/2024 6:11 PM EDT) Hepatitis C Antibody Negative Negative 04/10/2024 7:24 PM EDT [facility]ALTH[facility]ARE [facility] Blood Venous blood specimen / Unknown Venipuncture / Unknown 04/10/2024 6:11 PM EDT 04/10/2024 6:26 PM EDT us Susan Mcclure MD LAB BLOOD ORDERABLES Final Re sult Performing Organization Address [facility] de Phone Number HEALTHCARE LAB [address] [place] [address] * (ABNORMAL) Hemoglobin A1c (04/10/2024 6:11 PM EDT) Pathologist [facility] Hemoglobin A1c 6.3(H) <5.7 % 04/10/2024 9:31 [...] Adults <6.0% Children and Adolescents <7.5% Source: [place] [employer]. Standards of medical care in diabetes,2017. Diabetes Care.2017:40 (suppl 1):S1-S135. HbA1c assay performed by an ion-exchange chromatography method that is certified traceable to the [facility]. us Joselito Berrios MD LAB BLOOD ORDERABLES Final Re sult HEALTHCARE LAB [address] [place] [address] from Last 3 Months or Most Recently Relevant to Health Maintenance Additional Health Concerns Infection Onset Date Last Indicated ESBL Comment:+ 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 Source: [facility]. This patient will require contact precautions indefinitely. 04/01/2024 Insurance [employer] BETTER [employer] MEDICAID Advance Directives * Full Code (Latest Code Status on File) Date Activated Date Inactivated Comments 04/11/2024 10:12 AM 04/12/2024 3:22 PM Question Answer Comments Patient has decision-making capacity? Yes Care Teams Bioinformatician Relationship Specialty Start Date End Date Juarez Griffin MD [address] [place] [address] PCP - General 03/10/21 Karen Naqvi DO [address] [facility] [address] [place] [address] Referring Physician Obstetrics and Gynecology 09/23/24
--- OUTSIDE RECORDS SUMMARY | 2025-04-03 12:39 | XMS_ITS | Referral Summary ---
Author Organization [employer] [facility] Address [address] [place] [address] Care Team Providers Care Web Interface Developer Name Role Phone Juarez Griffin MD Primary Care Provider [phone] Allergies Active Allergy Reactions Criticality Noted Date [...] place to sleep or slept in a group home (including now)? No 12/27/2023 Utilities Answer Date [...] your living situation today? I have a [facility] place to live 12/27/2023 Think about [...] Do you speak a language other than Irish at [facility]? No 12/27/2023 Do you want help [...] on file Medical Devices Implanted Type Area Studio Technician Device Identifier Shelf Expiration Date Model / Serial / Lot Loop Recorder LOOP RECORDER Left: Chest Insurance [facility] Advance Directives For more information, please contact: [phone] * Full Code (Latest Code Status on File) Date Activated Date Inactivated Comments 12/27/2023 3:21 AM 12/30/2023 2:53 PM -Attempt Resus citation if person has no pulse and is not breathing. -If no pulse or not breathing attempt CPR/CODE. -Call Rapid Response if patient is in distress. Care Teams Web Interface Developer Relationship Specialty Start Date End Date Juarez Griffin MD [address] [place] [id number] PCP - General General Internal Medicine 12/30/23
[2025-04-03] MEDS: 0.9 % SODIUM CHLORIDE 50 ML 100 ML IV (13:00)
[2025-04-03] MEDS: ERTAPENEM SODIUM 1 GM in 0.9 % SODIUM CHLORIDE 50 ML IV (13:00)
== END 2025-04-03 13:39 | disposition home or self-care (01) ==
LOC: INF 12:36
PROVIDERS: PCP Internal Medicine; Visit Provider Urology
DX: N39.0 Urinary tract infection, site not specified (principal); B96.4 Proteus (mirabilis) (morganii) as the cause of diseases classified elsewhere; Z16.24 Resistance to multiple antibiotics
CPT/HCPCS: 96365; J1335

== ENCOUNTER 2025-04-04 12:22 | Outpatient (CLI) | payer OTHER, SELFPAY ==
--- OUTSIDE RECORDS SUMMARY | 2025-04-04 12:24 | XMS_ITS | Encounter Summary ---
Author Organization [facility] Address [address] [place] [address] Care Team Providers Care Cco & President Name Role Phone Juarez Griffin MD Primary Care Provider Karen Naqvi DO Unavailable [phone] Encounter Details Date Type Department Care Team ([facility] st Contact Info) Description 02/12/2024 Orders Only External Location [address] [place] [address] Gennaro Cuevas MD [facility] [address] [place] [address] Social History Tobacco Use Types Packs/Day Years [...] Comment:+ 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 Source: [facility]. This patient will require contact precautions indefinitely. 04/01/2024 documented as of this encounter Care Teams Cco & President Relationship Specialty Start Date End Date Juarez Griffin MD [address] [place] [address] PCP - General 03/10/21 Karen Naqvi DO [facility] [address] [place] [address] Referring Physician Obstetrics and Gynecology 09/23/24 documented as of this encounter
--- OUTSIDE RECORDS SUMMARY | 2025-04-04 12:24 | XMS_ITS | Encounter Summary ---
Author Organization [facility] Address [address] [place] [address] Care Team Providers Care Bedspread Cutter Name Role Phone Juarez Griffin MD Primary Care Provider [phone] Karen Naqvi DO Unavailable [phone] Encounter Details Date Type Department Care Team ([facility] st Contact Info) Description 03/12/2025 Orders Only External Location [address] [place] [id number] Provider, External Social History Tobacco Use Types [...] drink first t yue in the morning (EYE-PERSONAL FINANCIAL REPRESENTATIVE) to steady your nerves or to get [...] Comment:+ 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 Source: [facility] [employer]. This patient will require contact precautions indefinitely. 04/01/2024 Assessment Noted Time A fall risk assessment has been complete d for the patient 10/05/2024 1:53 PM EST A Body Mass Index follow-up plan has been documented for the patient 04/12/2024 12:42 PM EDT documented as of this encounter Care Teams Bedspread Cutter Relationship Specialty Start Date End Date Juarez Griffin MD [address] [facility] [address] [place] [address] PCP - General 03/10/21 Karen Naqvi DO 1210 [facility] [address] [place] [address] Referring Physician Obstetrics and Gynecology 09/23/24 documented as of this encounter
--- OUTSIDE RECORDS SUMMARY | 2025-04-04 12:24 | XMS_ITS | Clinical Summary ---
Author Organization [facility] Address [address] [facility] [address] [place] [address] Phone Care Team Providers Care Medical Insurance Claims Processor Name Role Phone Zofia Perkins Unavailable Unavailable Conditions or Problems Problem Name Problem Code Onset Date Status Entry Date Provider Comment Standard Description Annotate Acute Pyelonephritis 19340577 (SNOMED CT) 01/07 Active 01/07 Malina Ames Acute pyelonephritis Obstructive uropathy with infection N13.6 (ICD-10-C M) 01/07 Active 01/07 Malina Ames Pyonephrosis Neutrophilic leukemoid reaction D72.823 (ICD-10-C M) 01/07 Active 01/07 Malina Ames Leukemoid reaction COPD 46507856 (SNOMED CT) 01/07 Active 01/07 Malina Ames Chronic obstructive pulmonary disease Morbid obesity due to excess calories E66.01 (ICD-10-C M) 01/07 Active 01/07 Malina Ames Morbid (severe) obesity due to excess calories DM Type II E11.9 (ICD-10-C M) 01/07 Active 01/07 Malina Ames Type 2 diabetes mellitus without complications Benign hypertensive heart disease with chronic diastolic heart failure (I50.32) 83966717 (SNOMED CT) 01/07 Active 01/07 Malina Ames Benign hypertension Medications Medication Instructions Start Date Stop Date Generic Name [facility] Provider FOSFOMYCIN TROMETHAMINE 3 GM PACK Take 1 packet by mouth as directed take 1 packet every 3-4 days (2 times weekly) fosfomycin tromethamine 28358239974 Calvin Villarreal MD PREDNISONE 20 MG TABS prednisone 75180186008 Milly Jabierbrianne VITAMIN C 500 MG CAPS twice a day ascorbic acid (vitamin c) 88832382525 Milly Mosquera HIPREX 1 GM TABS Take 1 tablet by mouth twice a day 02/18 methenamine hippurate 14220201075 Calvin Villarreal MD INDOMETHACIN 50 MG CAPS Take 1 capsule by mouth three times a day indomethacin 20466679649 Linda De Leon SUCRALFATE 1 GM TABS Take 1 tablet by mouth four times a day sucralfate 29504957175 Linda De Leon BUMETANIDE 2 MG TABS Take 1 tablet by mouth twice a day bumetanide 31077688634 Linda De Leon PRAVASTATIN SODIUM 10 MG TABS Take 1 tablet by mouth every night pravastatin 15543934349 Linda De Leon ENTRESTO 24-26 MG TABS Take 1 tablet by mouth twice a day sacubitril-valsa rtan 71367582602 Linda De Leon VENTOLIN HFA 108 (90 Base) MCG/ACT AERS Inhale 2 puff by mouth every four to six hours as needed albuterol sulfate 46118794656 Linda De Leon ADVAIR DISKUS 250-50 MCG/ACT AEPB Inhale 1 puff twice a day fluticasone propion-salmeter ol 26992239342 Linda De Leon OMEPRAZOLE 20 MG CPDR Take 1 capsule by mouth once a day omeprazole 61192556532 Linda De Leon METFORMIN HCL 500 MG TABS Take 1 tablet by mouth twice a day metformin 01203555949 Linda De Leon FARXIGA 10 MG TABS Take 10 mg by mouth once a day dapagliflozin propanediol 03306476300 Linda De Leon IBUPROFEN (IBUPROFEN) 800 MG TABS Take 1 tablet by mouth every six hours as needed IBUPROFEN Linda De Leon TIZANIDINE HCL 4 MG TABS Take 1 tablet by mouth as needed tizanidine 78042002460 Linda De Leon TRAMADOL HCL 50 MG TABS every twelve hours tramadol 64278416655 Linda De Leon NITROGLYCERIN 0.[address] 1 tablet under tongue as needed nitroglycerin 39860853178 Linda Moises ONDANSETRON HCL 4 MG TABS Take 1 tablet by mouth every eight hours as needed ondansetron hcl 26045849130 Linda Moises SPIRONOLACTONE 50 MG TABS Take 1 tablet by mouth once a day spironolactone 57108630933 Linda De Leon SITagliptin (JANUVIA) 25 MG tablet Take 1 tablet by mouth once a day JANOLIVER De Leon NEBIVOLOL HCL 5 MG TABS Take 1 tablet by mouth once a day nebivolol 56096051581 Jazieltyree De Leon GLYXAMBI 10-5 MG TABS Take 1 tablet by mouth once a day empagliflozin-li nagliptin 58592917651 Linda De Leon VENTOLIN HFA 108 (90 Base) MCG/ACT AERS INHALE TWO PUFFS BY MOUTH EVERY 4 TO 6 HOURS NEEDED 01/19 albuterol sulfate 14505530317 QIE qieuser TRAMADOL HCL 50 MG TABS Every 12 (Twelve) Hours. 01/19 tramadol 32219460786 QIE [facility]user TIZANIDINE HCL 4 MG TABS Take 1 tablet by mouth As Needed. 01/19 tizanidine 38251388277 QIE [facility]user SUCRALFATE 1 GM TABS Take 1 tablet by mouth 4 (Four) Times a Day. 01/19 sucralfate 47236606040 QIE [facility] SPIRONOLACTONE 50 MG TABS TAKE ONE TABLET BY MOUTH EVERY DAY 01/19 spironolactone 50275213847 QIE [facility]user SITagliptin (JANUVIA) 25 MG tablet Take 1 tablet by mouth Daily. 01/19 JANUVIA QIE [facility]user PRAVASTATIN SODIUM 10 MG TABS TAKE ONE TABLET BY MOUTH EVERY DAY AT BEDTIME 01/19 pravastatin 55627619852 QIE [facility]user ONDANSETRON HCL 4 MG TABS Take 1 tablet by mouth Every 8 (Eight) Hours As Needed. 11/10 ondansetron hcl 27242029258 [facility]IE [facility] OMEPRAZOLE 20 MG CPDR TAKE ONE CAPSULE BY MOUTH EVERY DAY 01/19 omeprazole 56728838851 [facility]IE [facility] O2 (OXYGEN) 2 L by Alternating Nares route Every Night. OXYGEN QIE qieuser NITROGLYCERIN 0.[address] 1 tablet under the tongue As Needed for Chest Pain. 01/19 nitroglycerin 73104321155 [facility]IE [facility] NEBIVOLOL HCL 5 MG TABS TAKE ONE TABLET BY MOUTH EVERY DAY 01/19 nebivolol 31470385558 [facility]IE [facility] METFORMIN HCL 500 MG TABS Take 1 tablet by mouth 2 (Two) Times a Day. 01/19 metformin 91703041396 QIE [facility]ieuser IPRATROPIUM-ALBUT MIK 0.5-2.5 (3) MG/3ML SOLN ipratropium-albu terol 94008359693 QIE qieuser INDOMETHACIN 50 MG CAPS Take 1 capsule by mouth 3 (Three) Times a Day With Meals. 01/19 indomethacin 96772265144 QIE qieuser IBUPROFEN (IBUPROFEN) 800 MG TABS Take 1 tablet by mouth Every 6 (Six) Hours As Needed. 01/19 IBUPROFEN QIE qieuser ENTRESTO 24-26 MG TABS TAKE ONE TABLET BY MOUTH TWICE DAILY 01/19 sacubitril-valsa rtan 04476052655 QIE [facility]user GLYXAMBI 10-5 MG TABS Take 1 tablet by mouth Daily. 01/19 empagliflozin-li nagliptin 18413236999 QIE [facility]user FARXIGA 10 MG TABS Take 10 mg by mouth Daily. 01/19 dapagliflozin propanediol 60740086727 QIE qieuser BUMETANIDE 2 MG TABS TAKE ONE TABLET BY MOUTH TWICE DAILY 01/19 bumetanide 30903106146 [facility]IE [facility] ADVAIR DISKUS 250-50 MCG/ACT AEPB Inhale 1 puff 2 (Two) Times a Day. 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
--- OUTSIDE RECORDS SUMMARY | 2025-04-04 12:25 | XMS_ITS | Clinical Summary ---
Author Organization [employer] [facility] Address [address] [place] [address] Care Team Providers Care Gut Dropper Name Role Phone Juarez Griffin MD Primary Care Provider [phone] Allergies Active Allergy Reactions Criticality Noted Date [...] place to sleep or slept in a fpc (including now)? No 12/27/2023 Utilities Answer Date [...] your living situation today? I have a [facility] place to live 12/27/2023 Think about [...] Do you speak a language other than Thai at [facility]? No 12/27/2023 Do you want help [...] Completed 10/30/2023, Medical Devices Implanted Type Area Transaction Advisory Services Manager Device Identifier Shelf Expiration Date Model / Serial / Lot Loop Recorder LOOP RECORDER Left: Chest Insurance [employer]NA [facility] Advance Directives For more information, please contact: [phone] * Full Code (Latest Code Status on File) Date Activated Date Inactivated Comments 12/27/2023 3:21 AM 12/30/2023 2:53 PM -Attempt Resus citation if person has no pulse and is not breathing. -If no pulse or not breathing attempt CPR/CODE. -Call Rapid Response if patient is in distress. Care Teams Gut Dropper Relationship Specialty Start Date End Date Juarez Griffin MD [address] [place] [address] PCP - General General Internal Medicine 12/30/23
--- OUTSIDE RECORDS SUMMARY | 2025-04-04 12:25 | XMS_ITS | Referral Summary ---
Author Organization [employer] [facility] Address [address] [place] [address] Care Team Providers Care Core Stripper Name Role Phone Juarez Griffin MD Primary Care Provider [phone] Allergies Active Allergy Reactions Criticality Noted Date [...] place to sleep or slept in a correction (including now)? No 12/27/2023 Utilities Answer Date Recorded In the past 12 months, has t he electric, gas, oil, or water company threatened to shut off services in your home? No 12/27/2023 Interpersonal Safety Answer Date Record ed How often does anyone, branden burton family and friends, physically hurt you? Never 12/27/2023 How often does anyone, barnden burton family and friends, insult or talk down to you? Never 12/27/2023 How often does anyone, branden burton family and friends, threaten you with harm? Never 12/27/2023 How often does anyone, branden burton family and friends, scream or curse at you? Never 12/27/2023 Housing Stability Answer Date Recorded What is your living situation today? I have a [facility] place to live 12/27/2023 Think about the [...] Do you speak a language other than Turkmen at [facility]? No 12/27/2023 Do you want help [...] on file Medical Devices Implanted Type Area Inspector Mechanical Device Identifier Shelf Expiration Date Model / Serial / Lot Loop Recorder LOOP RECORDER Left: Chest Insurance [facility] Advance Directives For more information, please contact: [phone] * Full Code (Latest Code Status on File) Date Activated Date Inactivated Comments 12/27/2023 3:21 AM 12/30/2023 2:53 PM -Attempt Resus citation if person has no pulse and is not breathing. -If no pulse or not breathing attempt CPR/CODE. -Call Rapid Response if patient is in distress. Care Teams Core Stripper Relationship Specialty Start Date End Date Juarez Griffin MD [address] [place] [phone] PCP - General General Internal Medicine 12/30/23
--- OUTSIDE RECORDS SUMMARY | 2025-04-04 12:25 | XMS_ITS | Clinical Summary ---
Author Organization [facility] Address [address] [place] [address] Care Team Providers Care Assembler Handbags Name Role Phone Juarez Griffin MD Primary Care Provider [phone] Karen Naqvi DO Unavailable [phone] Allergies Active Allergy Reactions Criticality Noted Date [...] Team Description 03/12/2025 Orders Only External Location [address] [place] [phone] Provider, External from Last 3 Months Immunizations [...] drink first t yue in the morning (EYE-VENEER SHEET REPAIRER) to steady your nerves or to get [...] PPSV23) 11/01/2021 09/06/2021 [facility]Y-Breast Cancer Screening 2023 [id number] Vaccine ( - season) 2024 10/07/2022, 08/21/2021 [...] this topic Medical Devices Implanted Type Area Sign Language Interpreter Device Identifier Shelf Expiration Date Model / Serial / Lot Stent Ureteral Double Pigtail Pos 6fr 24cm - [id number] - [id number] Implanted:Qty: 1 on 04/11/2024 by Harvey Macdonald MD at [facility] Stent Right: Ureter [employer] [id number] 01/02/2026 [id number] / [id number] / [id number] Loop Recorder-2016 Implanted:04/28 (Quantity not on file) Chest [facility] [id number] / / Procedures Procedure Name Priority [...] Reactive Non Reactive 04/10/2024 7:25 PM EDT [facility] Comment:Screening for HIV 1 & 2 antibodies, and P24 antigen is NONREACTIVE. No confirmatory testing is required. Blood Venous blood specimen / Unknown Venipuncture / Unknown 04/10/2024 6:11 PM EDT 04/10/2024 6:27 PM EDT us Susan Mcclure MD LAB BLOOD ORDERABLES Final Re sult Performing Organization Address [facility] Co de Phone Number HEALTHCARE LAB [address] [place] [address] * Hepatitis C Antibody - ED (04/10/2024 6:11 PM EDT) Hepatitis C Antibody Negative Negative 04/10/2024 7:24 PM EDT [facility]ALTH[facility]ARE [facility] Blood Venous blood specimen / Unknown Venipuncture / Unknown 04/10/2024 6:11 PM EDT 04/10/2024 6:26 PM EDT us Susan Mcclure MD LAB BLOOD ORDERABLES Final Re sult Performing Organization Address [facility] de Phone Number HEALTHCARE LAB [address] [place] [address] * (ABNORMAL) Hemoglobin A1c (04/10/2024 6:11 PM EDT) Pathologist [facility] Hemoglobin A1c 6.3(H) <5.7 % 04/10/2024 9:31 [...] Adults <6.0% Children and Adolescents <7.5% Source: [place] [employer]. Standards of medical care in diabetes,2017. Diabetes Care.2017:40 (suppl 1):S1-S135. HbA1c assay performed by an ion-exchange chromatography method that is certified traceable to the [facility]. us Joselito Berrios MD LAB BLOOD ORDERABLES Final Re sult [facility]ALTHCARE LAB [address] [place] [address] from Last 3 Months or Most Recently Relevant to Health Maintenance Additional Health Concerns Infection Onset Date Last Indicated ESBL Comment:+ 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 Source: [facility]. This patient will require contact precautions indefinitely. 04/01/2024 Insurance A[employer]NA BETTER HEALTH MEDICAID Advance Directives * Full Code (Latest Code Status on File) Date Activated Date Inactivated Comments 04/11/2024 10:12 AM 04/12/2024 3:22 PM Question Answer Comments Patient has decision-making capacity? Yes Care Teams Assembler Handbags Relationship Specialty Start Date End Date Juarez Griffin MD [address] [place] [address] PCP - General 03/10/21 Karen Naqvi DO [address] [facility] [address] [place] [address] Referring Physician Obstetrics and Gynecology 09/23/24
[2025-04-04] MEDS: ERTAPENEM SODIUM 1 GM in 0.9 % SODIUM CHLORIDE 50 ML IV (12:40)
== END 2025-04-04 13:18 | disposition home or self-care (01) ==
LOC: INF 12:22
PROVIDERS: PCP Internal Medicine; Visit Provider Urology
DX: N39.0 Urinary tract infection, site not specified (principal); B96.4 Proteus (mirabilis) (morganii) as the cause of diseases classified elsewhere; Z16.24 Resistance to multiple antibiotics
CPT/HCPCS: 96365; J1335

== ENCOUNTER 2025-04-05 11:36 | Outpatient (CLI) | payer OTHER, SELFPAY ==
--- OUTSIDE RECORDS SUMMARY | 2025-04-05 11:47 | XMS_ITS | Data Portability ---
Author Organization [facility] Mahamed morgan, ABHAYS MONTEREY CLOSED Address [address] [facility] [address] [place] [address] Assessment No assessment recorded. Plan of Treatment Reminders Order Date Submit Date Provider Last Modified By Organization Details Last Modified Time Details Appointments None recorded. Lab None recorded. Referral aquatic therapy referral 2017 018 [email or web address] 2 Not available 8 11:14:18 cognitive behavioral therapy referral 2017 018 [email or web address] 2 [facility] [address] [facility], [address], [place], [address], 8 11:14:19 occupationa l therapist referral 2017 018 [email or web address] 2 Not available 8 11:14:17 Procedures None recorded. Surgeries None recorded. Imaging None recorded. Medication Orders None recorded. Patient TargetsNo targets recorded. Patient Instructions Encounter Date Encounter Id Patient Instructions Last Modified By Organization Details Last Modified Time 08/13/2018 [id number] learning about healthy weight Not available 08/13/2018 [...] Name and Address Organization Details Recorded Time 938921 aspirin medicatio n Not available Not available Not available 08/13/2018 [id number] [facility]Norm Melinda Hudson [facility] 8 10:01:54 Medications Name Sig Start [...] Address Organization Details Last Updated DateTime 8 314426. 12 g 48.2 kg/m2 160.02 cm 18 /min 61 /min 132 mm[Hg] 96 mm[Hg] Melinda Hudson [facility] 8 10:06:40 Social History Question Answer Notes LastModified by Organizat ion Details LastModified Time Tobacco Smoking Status Never Smoker Melinda Hudson [facility] 08/13/2018 10:02:03 What Was The Date Of Your Most Recent Tobacco Screening? 08/13/2018 Information n ot available 12/15/2019 Sex: Unknown Functional Status None recorded. Mental Status None recorded. Family History Relationship Description Onset Age of this Age Resolved Age Notes LastModified by Organization Details LastModified Time Father No current problems or disability Not available 08/13 10:02:01 Mother No current problems or disability [email or web address] Not available 08/13 10:02:01 Medical History Condition [...] SNOMED-CT Code Diagnosis ICD10 Code Diagnosis Note [id number] CLIFF BARBER MD RHEUMATOL OGY [address] [place] [address] 08/13/2018 09:13:44 08/13/2018 10:48:47 Pain of multiple joints 20989172 M25.50 she has clinical features of Dixon OA. no features of an inflammato ry arthritis noted. no features of rheumatoid noted. 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 would suggest to avoid steroids and start OT as stated below. she can RTC with me as prn. Fibromyalgia 283176829 M 79.7 she has clinical features suggestive [...] OT to help with the ROM and office professional. 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 Health Concerns Section Related Observation LastModified by Organization Detai ls LastModified Time None Recorded Concern Status LastModified by Organization Details LastModified Time None Recorded Advance Directives Directive None Recorded Payers Insurance Date Sequence Insurance Name Policy Number Policy Valdivia Covered Member ID Valdivia Member ID Guarantor Name 02/03/2024 1 [facility] [id number] [facility] 01/24/2024 1 [place]/TRADITIO NAL Lissy Morgan Bejou [id number] Lissy [facility] 02/04/2024 1 [facility] (MEDICAID HMO) [facility] [id number] [facility] 01/31/2024 1 [facility] (PP[facility] [id number] Lissy [facility] [id number] Lissy [facility] Notes Date Note Type Note Provider Name [...] and a normal TSH. CLIFF BARBER MD [facility] [place], [address], Critical access hospital 08/13/2018 17:00:47 OBGyn Episode No OBEpisode recorded.
--- OUTSIDE RECORDS SUMMARY | 2025-04-05 11:47 | XMS_ITS | Encounter Summary ---
Author Organization [facility] Address [address] [place] [address] Care Team Providers Care Mathematical Scientist Name Role Phone Juarez Griffin MD Primary Care Provider [phone] Karen Naqvi DO Unavailable [phone] Encounter Details Date Type Department Care Team ([facility] st Contact Info) Description 03/12/2025 Orders Only External Location [address] [place] [address] Provider, External Social History Tobacco Use Types [...] drink first t yue in the morning ([employer]) to steady your nerves or to get [...] Comment:+ 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 Source: [facility]. This patient will require contact precautions indefinitely. 04/01/2024 Assessment Noted Time A fall risk assessment has been complete d for the patient 10/05/2024 1:53 PM EST A Body Mass Index follow-up plan has been documented for the patient 04/12/2024 12:42 PM EDT documented as of this encounter Care Teams Mathematical Scientist Relationship Specialty Start Date End Date Juarez Griffin MD [address] [facility] [address] [place] [address] PCP - General 03/10/21 Karen Naqvi DO [address] [facility] [address] [place] [address] Referring Physician Obstetrics and Gynecology 09/23/24 documented as of this encounter
--- OUTSIDE RECORDS SUMMARY | 2025-04-05 11:47 | XMS_ITS | Encounter Summary ---
Author Organization [facility] Address [address] [place] [address] Care Team Providers Care Automotive Service Consultant Name Role Phone Juarez Griffin MD Primary Care Provider [phone] Karen Naqvi DO Unavailable [phone] Encounter Details Date Type Department Care Team ([facility] st Contact Info) Description 02/12/2024 Orders Only External Location [address] [place] [address] Gennaro Cuevas MD [facility] [address] [place] [address] Social History Tobacco Use Types Packs/Day Years [...] Added from external infection. Source: [facility]. This patient will require contact precautions indefinitely. 04/01/2024 documented as of this encounter Care Teams Automotive Service Consultant Relationship Specialty Start Date End Date Juarez Griffin MD [address] [place] [address] PCP - General 03/10/21 Karen Naqvi DO [facility] [address] [place] [address] Referring Physician Obstetrics and Gynecology 09/23/24 documented as of this encounter
--- OUTSIDE RECORDS SUMMARY | 2025-04-05 11:47 | XMS_ITS | Clinical Summary ---
Author Organization [facility] Address [address] [facility] [address] [place] [address] Phone Care Team Providers Care Wrong Address Clerk Name Role Phone Zofia Perkins Unavailable Unavailable Conditions or Problems Problem Name Problem Code Onset Date Status Entry Date Provider Comment Standard Description Annotate Acute Pyelonephritis 36302825 (SNOMED CT) 01/07 Active 01/07 Malina Ames Acute pyelonephritis Obstructive uropathy with infection N13.6 (ICD-10-C M) 01/07 Active 01/07 Malina Ames Pyonephrosis Neutrophilic leukemoid reaction D72.823 (ICD-10-C M) 01/07 Active 01/07 Malina Ames Leukemoid reaction COPD 72943582 (SNOMED CT) 01/07 Active 01/07 Malina Ames Chronic obstructive pulmonary disease Morbid obesity due to excess calories E66.01 (ICD-10-C M) 01/07 Active 01/07 Malina Ames Morbid (severe) obesity due to excess calories DM Type II E11.9 (ICD-10-C M) 01/07 Active 01/07 Malina Ames Type 2 diabetes mellitus without complications Benign hypertensive heart disease with chronic diastolic heart failure (I50.32) 62902075 (SNOMED CT) 01/07 Active 01/07 Malina Ames Benign hypertension Medications Medication Instructions Start Date Stop Date Generic Name [facility] Provider FOSFOMYCIN TROMETHAMINE 3 GM PACK Take 1 packet by mouth as directed take 1 packet every 3-4 days (2 times weekly) fosfomycin tromethamine 82765422176 Calvin Villarreal MD PREDNISONE 20 MG TABS prednisone 21341742301 Milly Jabierbrianne VITAMIN C 500 MG CAPS twice a day ascorbic acid (vitamin c) 20088594734 Milly Mosquera HIPREX 1 GM TABS Take 1 tablet by mouth twice a day 02/18 methenamine hippurate 72221025535 Calvin Villarreal MD INDOMETHACIN 50 MG CAPS Take 1 capsule by mouth three times a day indomethacin 83588368090 Linda De Leon SUCRALFATE 1 GM TABS Take 1 tablet by mouth four times a day sucralfate 81284156342 Linda De Leon BUMETANIDE 2 MG TABS Take 1 tablet by mouth twice a day bumetanide 10491819453 Linda De Leon PRAVASTATIN SODIUM 10 MG TABS Take 1 tablet by mouth every night pravastatin 62599129294 Linda De Leon ENTRESTO 24-26 MG TABS Take 1 tablet by mouth twice a day sacubitril-valsa rtan 76995264332 Linda De Leon VENTOLIN HFA 108 (90 Base) MCG/ACT AERS Inhale 2 puff by mouth every four to six hours as needed albuterol sulfate 99467658777 Linda De Leon ADVAIR DISKUS 250-50 MCG/ACT AEPB Inhale 1 puff twice a day fluticasone propion-salmeter ol 90219007910 Linda De Leon OMEPRAZOLE 20 MG CPDR Take 1 capsule by mouth once a day omeprazole 46535235395 Linda De Leon METFORMIN HCL 500 MG TABS Take 1 tablet by mouth twice a day metformin 73910856419 Linda De Leon FARXIGA 10 MG TABS Take 10 mg by mouth once a day dapagliflozin propanediol 08361184578 Linda De Leon IBUPROFEN (IBUPROFEN) 800 MG TABS Take 1 tablet by mouth every six hours as needed IBUPROFEN Linda De Leon TIZANIDINE HCL 4 MG TABS Take 1 tablet by mouth as needed tizanidine 24338950707 Linda De Leon TRAMADOL HCL 50 MG TABS every twelve hours tramadol 14105900707 Linda De Leon NITROGLYCERIN 0.[address] 1 tablet under tongue as needed nitroglycerin 85063598017 Linda Moises ONDANSETRON HCL 4 MG TABS Take 1 tablet by mouth every eight hours as needed ondansetron hcl 51833823567 Linda Moises SPIRONOLACTONE 50 MG TABS Take 1 tablet by mouth once a day spironolactone 67990917055 Linda De Leon SITagliptin (JANUVIA) 25 MG tablet Take 1 tablet by mouth once a day JANOLIVER De Leon NEBIVOLOL HCL 5 MG TABS Take 1 tablet by mouth once a day nebivolol 39834760102 Jazieltyree De Leon GLYXAMBI 10-5 MG TABS Take 1 tablet by mouth once a day empagliflozin-li nagliptin 95196752027 Linda De Leon VENTOLIN HFA 108 (90 Base) MCG/ACT AERS INHALE TWO PUFFS BY MOUTH EVERY 4 TO 6 HOURS NEEDED 01/19 albuterol sulfate 79203332756 QIE qieuser TRAMADOL HCL 50 MG TABS Every 12 (Twelve) Hours. 01/19 tramadol 14677430741 QIE qieuser TIZANIDINE HCL 4 MG TABS Take 1 tablet by mouth As Needed. 01/19 tizanidine 25869920243 QIE qieuser SUCRALFATE 1 GM TABS Take 1 tablet by mouth 4 (Four) Times a Day. 01/19 sucralfate 35039643300 QIE qieuser SPIRONOLACTONE 50 MG TABS TAKE ONE TABLET BY MOUTH EVERY DAY 01/19 spironolactone 19049864726 QIE qieuser SITagliptin (JANUVIA) 25 MG tablet Take 1 tablet by mouth Daily. 01/19 JANUVIA QIE qieuser PRAVASTATIN SODIUM 10 MG TABS TAKE ONE TABLET BY MOUTH EVERY DAY AT BEDTIME 01/19 pravastatin 68920266728 QIE qieuser ONDANSETRON HCL 4 MG TABS Take 1 tablet by mouth Every 8 (Eight) Hours As Needed. 11/10 ondansetron hcl 83257835043 QIE qieuser OMEPRAZOLE 20 MG CPDR TAKE ONE CAPSULE BY MOUTH EVERY DAY 01/19 omeprazole 27669522596 QIE qieuser O2 (OXYGEN) 2 L by Alternating Nares route Every Night. OXYGEN QIE qieuser NITROGLYCERIN 0.[address] 1 tablet under the tongue As Needed for Chest Pain. 01/19 nitroglycerin 14976448170 QIE qieuser NEBIVOLOL HCL 5 MG TABS TAKE ONE TABLET BY MOUTH EVERY DAY 01/19 nebivolol 01093567901 QIE qieuser METFORMIN HCL 500 MG TABS Take 1 tablet by mouth 2 (Two) Times a Day. 01/19 metformin 35176338869 QIE qieuser IPRATROPIUM-ALBUT MIK 0.5-2.5 (3) MG/3ML SOLN ipratropium-albu terol 47260865860 QIE qieuser INDOMETHACIN 50 MG CAPS Take 1 capsule by mouth 3 (Three) Times a Day With Meals. 01/19 indomethacin 10485759214 QIE qieuser IBUPROFEN (IBUPROFEN) 800 MG TABS Take 1 tablet by mouth Every 6 (Six) Hours As Needed. 01/19 IBUPROFEN QIE qieuser ENTRESTO 24-26 MG TABS TAKE ONE TABLET BY MOUTH TWICE DAILY 01/19 sacubitril-valsa rtan 48170825740 QIE qieuser GLYXAMBI 10-5 MG TABS Take 1 tablet by mouth Daily. 01/19 empagliflozin-li nagliptin 57546374952 QIE qieuser FARXIGA 10 MG TABS Take 10 mg by mouth Daily. 01/19 dapagliflozin propanediol 12833679392 QIE qieuser BUMETANIDE 2 MG TABS TAKE ONE TABLET BY MOUTH TWICE DAILY 01/19 bumetanide 68618458739 QIE qieuser ADVAIR DISKUS 250-50 MCG/ACT AEPB Inhale 1 puff 2 (Two) Times a Day. 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
--- OUTSIDE RECORDS SUMMARY | 2025-04-05 11:47 | XMS_ITS | Continuity of Care Document ---
Author Organization [facility] Infectious Disease -105 Address [address] [place] [address] Care Team Providers Care Bail Bond Agent Name Role Phone SHERI BENAVIDESGHT Primary Care Provider Assessment No assessment recorded. Plan of Treatment Reminders Order Date Submit Date Provider Last Modified By Organization Details Last Modified Time Details Appointments None recorded. Lab urinalysis, dipstick [address] Infectious Disease -105, [address] [facility] [address], [place], [address], 14:18:52 CBC w/ diff 2024 025 [facility] (Registration ), [address] [facility], [place], [address], 16:11:55 CMP, serum or plasma 2024 025 [facility] (Registration ), [address] [facility] [facility], [place], [address], 5 15:39:03 ESR (erythrocyt e sedimentati on rate), blood [address] (Registration ), [address] [facility] [facility], [place], [address], 5 08:54:47 C-reactive protein, quantitativ e, serum or plasma 2024 025 [email or web address] (Registration ), [address], [place], [address], 08:54:48 culture, urine 2024 025 [facility], [address], [address], [place], [address], 19:09:52 Referral None recorded. Procedures None recorded. Surgeries None recorded. Imaging None recorded. Medication Orders None recorded. Patient TargetsNo targets recorded. Patient InstructionsNo instructions recorded. Reason for Referral None Reported. Results Created Date Observation Date Name Description Value Unit Range Abnormal Flag Note LastModifiedBy Organization Detail LastModifiedTime 02/24/2002/23/2025 urina lysis , dipst ick Leukocytes (reference range) trace Not Available [facility] Infectious Disease -[facility] [address] [facility] [address], [place], [address], 02/23/2025 14:16:48 02/24/20 25 02/23/2025 urina lysis , dipst ick Nitrite (reference range:) negati ve Not Available [facility] Infectious Disease -[facility] [address], [place], [address], 02/23/2025 14:16:48 02/24/20 25 02/23/2025 urina lysis , dipst ick Urobilinogen (reference range) 0.2 Not Available [facility] Infectious Disease -[facility] [address], [place], [address], 02/23/2025 14:16:48 02/24/20 25 02/23/2025 urina lysis , dipst ick Protein (reference range) negati ve Not Available [facility] Infectious Disease -[facility] [address] [facility] [address], [place], [address], 02/23/2025 14:16:48 02/24/20 25 02/23/2025 urina lysis , dipst ick pH (reference range 5-8.5) 6.0 Not Available [place] [address] [address] [facility] [address], [place], [address], 02/23/2025 14:16:48 02/24/20 25 02/23/2025 urina lysis , dipst ick Blood (reference range:) small Not Available [place] [address] [address] [facility] [address], [place], [address], 02/23/2025 14:16:48 02/24/20 25 02/23/2025 urina lysis , dipst ick Specific [place] (reference range) 1.015 Not Available [place] [address] [address] [facility] [address], [place], [address], 02/23/2025 14:16:48 02/24/20 25 02/23/2025 urina lysis , dipst ick Ketone (reference range) negati ve Not Available [place] [address] [address] [facility] [address], [place], [address], 02/23/2025 14:16:48 02/24/20 25 02/23/2025 urina lysis , dipst ick Bilirubin (reference range) negati ve Not Available [place] [address] [address] [facility] [address], [place], [address], 02/23/2025 14:16:48 02/24/20 25 02/23/2025 urina lysis , dipst ick Glucose (reference range) 500 Not Available [place] [address] [address] [facility] [address], [place], [address], 02/23/2025 14:16:48 02/24/20 25 02/23/2025 urina lysis , dipst ick Color (reference range: yellow-brown ) Dark Yellow Not Available [facility] Infectious Disease -[address], [place], [address], 02/23/2025 14:16:48 Result Notes None recorded. Problems Name Problem SNOMED Code Status Onset Date Resolution Date Notes Provider Name and Address Organization Details Recorded Time Syncope 886624463 Active 2021 Malina Hernandez DO [address] [facility], [place], [address] , [place] - [facility] - [place] & [place] 15:33:04 Hypersomnia 14811193 Active 2021 Malina Hernandez DO [address] [facility], [place], [address] , [place] [facility] [place] & [place] 15:34:08 Problem Notes None recorded. Procedures Surgical History Date Name Laterality Status Provider Name and Address Organization Details Recorded Time 09/25/20 23 Cystoscopy-Female completed Silvio Valdez MD [address] [facility] [facility], [place], [address], [place] - [facility] - [place] & [place] 09/25/2023 15:26:11 04/04/20 22 Date of Last Pap Smear completed Vandana Dalla [place] [facility] [place] & [place] 10/03/2022 14:31:43 10/28/19 22 Filter Washer And Presser Surgery completed Vandana Dalla [place] [facility] [place] & [place] 10/03/2022 14:45:45 10/28/19 17 Cholecystectomy completed Vandana Dalla [place] [facility] & [place] 10/03/2022 14:32:27 10/28/19 14 Other completed Vandana Dalla [place] [facility] 10/03/2022 14:44:51 cardiac catheterization completed Vandana Dalla [place] [facility] [place] & [place] 10/03/2022 14:46:31 strabismus surgery completed Vandana Dalla [place] [facility] [place] & [place] 10/03/2022 14:55:15 Imaging Results None recorded. Procedure Notes None recorded. Medical Equipment None Reported. Allergies Allergen ID Allergen Name Allergen Category Reaction Reaction Severity Criticality Documentation Date Start Date Code Code System Note Provider Name and Address Organization Details Recorded Time 77582 aspirin medicatio n chest pain wheezing moderate severe Not available 10/02/2022 1191 RxNorm Vandana catherine, [facility] [place] 2 09:22:42 95384 Bactrim medicatio n arthralgi a (joint pain) muscle cramps severe severe Not available 10/02/2022 50008 9 RxNorm Vandana catherine, RAFITA DARLING [facility] & [place] 2 09:22:49 83770 insect venom environme nt confusion cough dizziness fever flushing headache wheezing moderate moderate moderate mild moderate moderate moderate Not available 10/02/2022 39188 UNK Vandana catherine, RAFITA Shea [facility] & [place] 2 09:23:13 72853 Pneumococ georges vaccine Not available anaphylax is chest pain facial swelling nausea rash wheezing moderate moderate moderate moderate moderate moderate Not available 10/02/2022 89874 7 RxNorm Vandana catherine, RAFITA DARLING [facility] & [place] 2 09:23:25 87056 rosuvasta tin medicatio n eye swelling facial swelling respirato ry distress moderate moderate moderate Not available 10/02/2022 93194 2 RxNorm Vandana catherine, RAFITA DARLING [facility] & [place] 2 09:23:35 Medications Name [...] % 80 /min 98.6 [degF] 49.6 kg/m2 165235. 86 g 116 mm[Hg] 100 mm[Hg] Bianca Smith [place] - [facility] - [place] & [place] 5 13:59:18 Social History Question Answer Notes LastModified by [employer] Details LastModified Time Tobacco Smoking Status Never Smoker Vandana Harris fl[place], [place] - [facility] - [place] & [place] 10/03/2022 14:32:09 Do You Have An Advance Directive? No Information not available 10/03/2022 Are You Blind Or Do You Have Difficulty Seeing? No Information not available 10/03/2022 What Was The Date Of Your Most Recent Tobacco Screening? 09/17/2022 Information not available 10/03/2022 Do You Have Any Pets? Yes [email or web address] Information not available 09/25/2023 Are You Passively Exposed To Smoke? No Information not available 10/03/2022 Are You Currently In School? No MASTERS [email or web address] Information not available 09/25/2023 Sex: Female Functional Status Question Answer Note LastModified by [employer] Details LastModified Time Do you use any illicit or recreational drugs? No Information not available 10/03/2022 What is your level of alcohol consumption? 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 Occasional Information not available 10/03/2022 Mental Status Question Answer Note LastModified by Organization D etails LastModified Time Do you feel stressed (tense, restless, nervous, or anxious, or unable to sleep at night)? 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 Will send urine off for a culture. Will see patient back in 1 week. Health Concerns Section Related Observation LastModified by Organization Detai ls LastModified Time None Recorded Concern Status LastModified by Organization Details LastModified Time None Recorded Payers Encounter Date Sequence Insurance Name Policy Number Policy Valdivia Covered Member ID Valdivia Member ID Guarantor Name 02/23/2025 1 [facility] (MEDICAID HMO) Lissystas Valdez [id number] Lissy Valdez Notes Date Note Type Note [...] 2025. Marilou David, PREETI [address], [place], [address], [facility] - [place] & [place] 02/24/2025 10:59:38 OBGyn Episode No OBEpisode recorded.
[2025-04-05] MEDS: SODIUM CHLORIDE 0.9% 10ML FLUSH SYRINGE 10 ML IV (11:48)
--- OUTSIDE RECORDS SUMMARY | 2025-04-05 11:48 | XMS_ITS | Referral Summary ---
Author Organization [employer] Address [address] [place] [address] Care Team Providers Care Ski Topper Name Role Phone Juarez Griffin MD Primary Care Provider [phone] Allergies Active Allergy Reactions Criticality Noted Date [...] place to sleep or slept in a usp (including now)? No 12/27/2023 Utilities Answer Date [...] your living situation today? I have a [facility] place to live 12/27/2023 Think [...] Do you speak a language other than [facility]? No 12/27/2023 Do you want help with [...] on file Medical Devices Implanted Type Area Steward/Stewardess Deck Device Identifier Shelf Expiration Date Model / Serial / Lot Loop Recorder LOOP RECORDER Left: Chest Insurance [facility] Advance Directives For more information, please contact: [phone] * Full Code (Latest Code Status on File) Date Activated Date Inactivated Comments 12/27/2023 3:21 AM 12/30/2023 2:53 PM -Attempt Resus citation if person has no pulse and is not breathing. -If no pulse or not breathing attempt CPR/CODE. -Call Rapid Response if patient is in distress. Care Teams Ski Topper Relationship Specialty Start Date End Date Juarez Griffin MD [address] [place] [address] [place] [id number] PCP - General General Internal Medicine 12/30/23
--- OUTSIDE RECORDS SUMMARY | 2025-04-05 11:48 | XMS_ITS | Data Portability ---
Author Organization [facility] [place] [facility] [place] Alejandro ADMIN Address [address] [place] [id number] Care Team Providers Care Credit Checker Name Role Phone ZAHRAA BENAVIDES Primary Care Provider Assessment Encounter Date Assessment Date Assessment LastModified by Organization Details LastModified Time 08/07/2023 08/07/[address] scan images onto our system. Will review to determine the degree of stone burden bilaterally in the kidneys. Will also plan cystoscopy and pelvic exam in the office in the near future. [email or web address] Not available 08/07/2023 15:34:46 09/25/2023 09/25/2023 I [...] in 6 months with KUB and UA. [email or web address] Not available 09/25/2023 15:29:09 Plan of Treatment Reminders Order Date Submit Date Provider Last Modified By Organization Details Last Modified Time Details Appointments None recorded. Lab urinalysis, dipstick 2024 025 [facility], [address], [place], [address], 5 14:18:52 CBC w/ diff 2024 025 [facility] (Registration ), [address], [place], [address], 5 16:11:55 CMP, serum or plasma 2024 025 [facility] (Registration ), [address], [place], [address], 5 15:39:03 ESR (erythrocyt e sedimentati on rate), blood [address] (Registration ), [address] [facility], [place], [address], 5 08:54:47 C-reactive protein, quantitativ e, serum or plasma [address] (Registration ), [address], [place], [address], 5 08:54:48 culture, urine 2024 025 [email or web address] [facility], [address], [address], [place], [address], 5 19:09:52 urinalysis, dipstick 2022 023 [email or web address] [facility], [address] [facility], [address], [place], [address], 3 16:08:29 Referral None recorded. Procedures None [...] usal 7.7 - 58.5 Perfo rmed at: [facility] [address] [place] [address] 1269 Lab Direc tor: Los carson PhD, Phone : [phone] Not Available [facility] ([facility]) [address] [facility], [place], [address], 04/03/2023 10:13:10 04/02/20 23 04/03/2023 FSH FSH, serum 5.4 mIU/m L Adult Femal e: Folli cular phase 3.5 - 12.5 Ovula tion phase 4.7 - 21.5 Lutea l phase 1.7 - 7.7 Postm enopa usal 25.8 - 134.8 Perfo rmed at: [facility] [address] [place] [address]61 Lab Direc tor: Los carson PhD, Phone : [phone] Not Available [facility] ([facility]) [address] [facility], [place], [address], 04/03/2023 10:14:16 08/07/20 23 08/07/2023 urina lysis , dipst ick Leukocytes (reference range) trace Not Available [facility] [address] [facility] [address] [place] [address], [address], 08/07/2023 15:15:15 08/07/2008/07/2023 urina lysis , dipst ick Nitrite (reference range:) negati ve Not Available [facility] [address] [facility] [address], [address], 08/07/2023 15:15:15 08/07/20 23 08/07/2023 urina lysis , dipst ick Urobilinogen (reference range) 0.2 Not Available [facility] [address] [place] [address] [address], [place], [address], 08/07/2023 15:15:15 08/07/2008/07/2023 urina lysis , dipst ick Protein (reference range) negati ve Not Available [facility] [address], [place], [address], 08/07/2023 15:15:15 08/07/2008/07/2023 urina lysis , dipst ick pH (reference range 5-8.5) 6.0 Not Available [facility] [address], [place], [address], 08/07/2023 15:15:15 08/07/2008/07/2023 urina lysis , dipst ick Blood (reference range:) small Not Available [facility] [address] [place] [address] [address], [place], [address], 08/07/2023 15:15:15 08/07/2008/07/2023 urina lysis , dipst ick Specific [place] (reference range) 1.015 Not Available [facility] [address], [place], [address], 08/07/2023 15:15:15 08/07/2008/07/2023 urina lysis , dipst ick Ketone (reference range) negati ve Not Available [address], [place], [address], 08/07/2023 15:15:15 08/07/2008/07/2023 urina lysis , dipst ick Bilirubin (reference range) negati ve Not Available [address], [place], [address], 08/07/2023 15:15:15 08/07/20 23 08/07/2023 urina lysis , dipst ick Glucose (reference range) 250 Not Available [facility] [address] [facility] [address], [place], [address], 08/07/2023 15:15:15 08/07/20 23 08/07/2023 urina lysis , dipst ick Color (reference range: yellow-brown ) Yellow Not Available [facility] [address] [facility] [address], [place], [address], 08/07/2023 15:15:15 02/24/20 25 02/23/2025 CBC AUTO W DIFF WBC 11.3 K/uL 4.0-10 .5 high Not Available [facility] ([facility]) [address] [facility], [place], [address], 02/23/2025 15:02:28 02/24/20 25 02/23/2025 CBC AUTO W DIFF RBC 5.7 M/mm3 4.2-6. 4 Not Available [facility] ([facility]) [address], [place], [address], 02/23/2025 15:02:28 02/24/20 25 02/23/2025 CBC AUTO W DIFF HGB 15.8 gm/dL 12.5-1 6.0 Not Available [facility] ([facility]) [address] [facility], [place], [address], 02/23/2025 15:02:28 02/24/20 25 02/23/2025 CBC AUTO W DIFF HCT 48.8 % 37.0-4 7.0 high Not Available [facility] ([facility]) [address], [place], [address], 02/23/2025 15:02:28 02/24/20 25 02/23/2025 CBC AUTO W DIFF MCV 86.4 fL 78-100 Not Available [facility] ([facility]) [address], [place], [address], 02/23/2025 15:02:28 02/24/20 25 02/23/2025 CBC AUTO W DIFF MCH 28.0 pg 27-31 Not Available [facility] ([facility]) [address], [place], [address], 02/23/2025 15:02:28 02/24/20 25 02/23/2025 CBC AUTO W DIFF MCHC 32.4 g/dL 32-36 Not Available [facility] ([facility]) [address], [place], [address], 02/23/2025 15:02:28 02/24/20 25 02/23/2025 CBC AUTO W DIFF RDW 13.7 % 11.5-1 4.0 Not Available [facility] ([facility]) [address], [place], [address], 02/23/2025 15:02:28 02/24/20 25 02/23/2025 CBC AUTO W DIFF platelet count 380 K/uL 150-45 0 Not Available [facility] ([facility]) [address], [place], [address], 02/23/2025 15:02:28 02/24/20 25 02/23/2025 CBC AUTO W DIFF MPV 10.3 fL 6-9.5 high Not Available [facility] ([facility]) [address], [place], [address], 02/23/2025 15:02:28 02/24/20 25 02/23/2025 CBC AUTO W DIFF neutrophil% 66.5 % 43-65 high Not Available [facility] ([facility]) [address], [place], [address], 02/23/2025 15:02:28 02/24/20 25 02/23/2025 CBC AUTO W DIFF lymphocyte% 24.3 % 20.5-4 5.5 Not Available [facility] ([facility]) [address], [place], [address], 02/23/2025 15:02:28 02/24/20 25 02/23/2025 CBC AUTO W DIFF monocyte% 6.0 % 5.5-11 .7 Not Available [facility] ([facility]) [address], [place], [address], 02/23/2025 15:02:02/24/20 25 02/23/2025 CBC AUTO W DIFF eosinophil% 2.3 % 0.9-2. 9 Not Available [facility] ([facility]) [address] [facility], [place], [address], 02/23/2025 15:02:28 02/24/20 25 02/23/2025 CBC AUTO W DIFF basophil% 0.6 % 0.2-1. 0 Not Available [facility] ([facility]) [address] [place], [address], 02/23/2025 15:02:28 02/24/20 25 02/23/2025 CBC AUTO W DIFF immature granulocytes % 0.3 % 0.0-0. 8 Not Available [facility] ([facility]) [address] [place], [address], 02/23/2025 15:02:28 02/24/20 25 02/23/2025 CBC AUTO W DIFF nucleated red blood cells % 0.0 % Not Available [facility] ([facility]) [address] [place], [address], 02/23/2025 15:02:28 02/24/20 25 02/23/2025 CBC AUTO W DIFF neutrophil# 7.5 K/uL 2.2-4. 8 high Not Available [facility] ([facility]) [address] [facility], [place], [address], 02/23/2025 15:02:28 02/24/20 25 02/23/2025 CBC AUTO W DIFF lymphocyte# 2.7 cell/ mcL 1.3-2. 9 Not Available [facility] ([facility]) [address], [place], [address], 02/23/2025 15:02:28 02/24/20 25 02/23/2025 CBC AUTO W DIFF monocyte# 0.7 cell/ mcL 0.3-0. 8 Not Available [facility] ([facility]) [address] [facility], [place], [address], 02/23/2025 15:02:28 02/24/20 25 02/23/2025 CBC AUTO W DIFF eosinophil# 0.3 cell/ mcL 0-0.2 high Not Available [facility] ([facility]) [address] [facility], [place], [address], 02/23/2025 15:02:28 02/24/20 25 02/23/2025 CBC AUTO W DIFF basophil# 0.1 cell/ mcL 0.0-1. 0 Not Available [facility] ([facility]) [address] [facility], [place], [address], 02/23/2025 15:02:28 02/24/20 25 02/23/2025 CBC AUTO W DIFF immature gramulocytes # 0.03 K/uL Not Available [facility] ([facility]) [address] [facility], [place], [address], 02/23/2025 15:02:28 02/24/20 25 02/23/2025 CBC AUTO W DIFF nucleated red blood cells # 0.00 K/uL Not Available [facility] ([facility]) [address] [facility], [place], [address], 02/23/2025 15:02:28 04/29/02/23/2025 CBC AUTO W DIFF manual differential NO Not Available [facility] ([facility]) [address], [place], [address], 02/23/2025 15:02:28 02/24/20 25 02/23/2025 COMP METAB OLIC PANEL sodium 138 mmol/ L 136-14 5 Not Available [facility] ([facility]) [address], [place], [address], 02/23/2025 15:39:03 02/24/20 25 02/23/2025 COMP METAB OLIC PANEL potassium 3.7 mmol/ L 3.6-5. 0 Not Available [facility] ([facility]) [address] , [place], [address], 02/23/2025 15:39:03 02/24/20 25 02/23/2025 COMP METAB OLIC PANEL chloride 98 mmol/ L 98-107 Not Available [facility] ([facility]) [address] , [place], [address], 02/23/2025 15:39:03 02/24/20 25 02/23/2025 COMP METAB OLIC PANEL carbon dioxide 26.8 mmol/ L 21.0-3 2.0 Not Available [facility] ([facility]) [address] , [place], [address], 02/23/2025 15:39:03 02/24/20 25 02/23/2025 COMP METAB OLIC PANEL anion gap 16.9 Not Available [facility] ([facility]) [address] [place], [address], 02/23/2025 15:39:03 02/24/20 25 02/23/2025 COMP METAB OLIC PANEL glucose 200 mg/dL 70-120 high Not Available [facility] ([facility]) [address], [place], [address], 02/23/2025 15:39:03 02/24/20 25 02/23/2025 COMP METAB OLIC PANEL BUN 12 mg/dL 7-18 Not Available [facility] ([facility]) [address], [place], [address], 02/23/2025 15:39:03 02/24/20 25 02/23/2025 COMP METAB OLIC PANEL creatinine 1.1 mg/dL 0.6-1. 3 Not Available [facility] ([facility]) [address], [place], [address], 02/23/2025 15:39:03 02/24/20 25 02/23/2025 COMP METAB [...] brown ing kiney funct ion. Not Available [facility] ([facility]) [address] , [place], [address], 02/23/2025 15:39:03 02/24/20 25 02/23/2025 COMP METAB OLIC PANEL osmolality (calculated) 293 mOsm/ kg 275-30 1 OSMOL ALITY IS A CALCU LATIO N UTILI ZING THE SERUM /PLAS MA SODIU M, GLUCO SE AND UREA NITRO GEN (BUN) LEVEL S. FOR THE MOST ACCUR ATE RESUL T A MEASU RED SERUM OSMOL ALITY IS SUGGE STED. Not Available [facility] ([facility]) [address], [place], [address], 02/23/2025 15:39:03 02/24/20 25 02/23/2025 COMP METAB OLIC PANEL total protein 8.1 g/dL 6.4-8. 2 Not Available [facility] ([facility]) [address] , [place], [address], 02/23/2025 15:39:03 02/24/20 25 02/23/2025 COMP METAB OLIC PANEL albumin 3.6 g/dL 3.4-5. 0 Not Available [facility] ([facility]) [address] , [place], [address], 02/23/2025 15:39:03 02/24/20 25 02/23/2025 COMP METAB OLIC PANEL globulin 4.5 Not Available [facility] ([facility]) [address], [place], [address], 02/23/2025 15:39:03 02/24/20 25 02/23/2025 COMP METAB OLIC PANEL alb/glob ratio 0.8 0.7-2 Not Available [facility] ([facility]) [address], [place], [address], 02/23/2025 15:39:03 02/24/20 25 02/23/2025 COMP METAB OLIC PANEL calcium 10.2 mg/dL 8.5-10 .5 Not Available [facility] ([facility]) [address], [place], [address], 02/23/2025 15:39:03 02/24/20 25 02/23/2025 COMP METAB OLIC PANEL bilirubin total 0.60 mg/dL 0.10-1 .00 Not Available [facility] ([facility]) [address] [place], [address], 02/23/2025 15:39:03 02/24/20 25 02/23/2025 COMP METAB OLIC PANEL AST (SGOT) 46 U/L 0-37 high Not Available [facility] ([facility]) [address], [place], [address], 02/23/2025 15:39:03 02/24/20 25 02/23/2025 COMP METAB OLIC PANEL ALT (SGPT) 78 U/L 0-65 high Not Available [facility] ([facility]) [address], [place], [address], 02/23/2025 15:39:03 02/24/20 25 02/23/2025 COMP METAB OLIC PANEL alk phosphatase 111 U/L 46-116 Not Available [facility] ([facility]) [address] [facility], [place], [address], 02/23/2025 15:39:03 02/24/20 25 02/23/2025 C-KARLI CTIVE PROTE IN (CRP) C-reactive protein, quant 2.0 mg/dL 0.05-0 .300 high Not Available [facility] ([facility]) [address] [facility], [place], [address], 02/23/2025 15:40:11 02/24/20 25 02/23/2025 SED RATE sed rate auto 9 0-20 Not Available [facility] ([facility]) [address] [facility], [place], [address], 02/23/2025 15:43:35 02/24/20 25 02/27/2025 URINE CULTU RE,CO MPREH ENSIV E urine culture,comp rehensive FINAL REPORT abnormal Not Available [facility] ([facility]) [address] [facility], [place], [address], 02/27/2025 19:09:52 02/24/20 25 02/27/2025 URINE CULTU [...] units per mL Not Available [facility] ([facility]) [address] [facility], [place], [address], 02/27/2025 19:09:52 02/24/2002/27/2025 URINE CULTU RE,CO MPREH [...] as Cefta rolin e Not Available [facility] ([facility]) [address] [facility], [place], [address], 02/27/2025 19:09:52 02/24/2002/27/2025 URINE CULTU RE,CO MPREH [...] mycin R S Not Available [facility] ([facility]) [address] [facility], [place], [address], 02/27/2025 19:09:52 02/24/20 25 02/23/2025 urina lysis , dipst ick Leukocytes (reference range) trace Not Available [place] [address], [place], [address], 02/23/2025 14:16:48 02/24/20 25 02/23/2025 urina lysis , dipst ick Nitrite (reference range:) negati ve Not Available [place] [address] [address] [facility] [address], [place], [address], 02/23/2025 14:16:48 02/24/20 25 02/23/2025 urina lysis , dipst ick Urobilinogen (reference range) 0.2 Not Available [place] [address] [address] [facility] [address], [place], [address], 02/23/2025 14:16:48 02/24/20 25 02/23/2025 urina lysis , dipst ick Protein (reference range) negati ve Not Available [place] [address] [address] [facility] [address], [place], [address], 02/23/2025 14:16:48 02/24/20 25 02/23/2025 urina lysis , dipst ick pH (reference range 5-8.5) 6.0 Not Available [place] [address] [address] [facility] [address], [place], [address], 02/23/2025 14:16:48 02/24/20 25 02/23/2025 urina lysis , dipst ick Blood (reference range:) small Not Available [place] [address] [address] [facility] [address], [place], [address], 02/23/2025 14:16:48 02/24/20 25 02/23/2025 urina lysis , dipst ick Specific [place] (reference range) 1.015 Not Available [place] [address] [address] [facility] [address], [place], [address], 02/23/2025 14:16:48 02/24/20 25 02/23/2025 urina lysis , dipst ick Ketone (reference range) negati ve Not Available [place] [address] [address] [facility] [address], [place], [address], 02/23/2025 14:16:48 02/24/20 25 02/23/2025 urina lysis , dipst ick Bilirubin (reference range) negati ve Not Available [place] [address] [address] [facility] [address], [place], [address], 02/23/2025 14:16:48 02/24/20 25 02/23/2025 urina lysis , dipst ick Glucose (reference range) 500 Not Available [place] [address] [address] [facility] [address], [place], [address], 02/23/2025 14:16:48 02/24/20 25 02/23/2025 urina lysis , dipst ick Color (reference range: yellow-brown ) Dark Yellow Not Available [place] [address] [address] [facility] [address], [place], [address], 02/23/2025 14:16:48 Result Notes None recorded. Problems Name Problem SNOMED Code Status Onset Date Resolution Date Notes Provider Name and Address Organization Details Recorded Time Syncope 470017603 Active 2021 Malina Hernandez DO [address], [place], [address] , [facility] - [facility] [place] [facility] [place] 15:33:04 Hypersomnia 62805971 Active 2021 Malina Hernandez DO [address] [facility], [place], [address] , [place] - [facility] & [place] 15:34:08 Problem Notes None recorded. 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 Procedure Notes None recorded. Medical Equipment None Reported. Allergies Allergen ID Allergen Name Allergen Category Reaction Reaction Severity Criticality Documentation Date Start Date Code Code System Note Provider Name and Address Organization Details Recorded Time 81462 aspirin medicatio n chest pain wheezing moderate severe Not available 10/02/2022 1191 RxNorm Vandana Eugenioa null, [place] - [facility] & [place] 09:22:42 90859 Bactrim medicatio n arthralgi a (joint pain) muscle cramps severe severe Not available 10/02/2022 84267 9 RxNorm Vandana Eugenioa null, [place] - [facility] & [place] 09:22:49 99935 insect venom environme nt confusion cough dizziness fever flushing headache wheezing moderate moderate moderate mild moderate moderate moderate Not available 10/02/2022 30233 UNK Vandana catherine, [facility] - [facility] & [place] 2 09:23:13 69836 Pneumococ georges vaccine Not available anaphylax is chest pain facial swelling nausea rash wheezing moderate moderate moderate moderate moderate moderate Not available 10/02/2022 72970 7 RxNorm Vandana catherine, [facility] [place] [facility] & [place] 2 09:23:25 21521 rosuvasta tin medicatio n eye swelling facial swelling respirato ry distress moderate moderate moderate Not available 10/02/2022 53649 2 RxNorm Vandana catherine, [facility] - [facility] & [place] 2 09:23:35 Medications Name Sig [...] % 80 /min 98.6 [degF] 49.6 kg/m2 469516. 86 g 116 mm[Hg] 100 mm[Hg] Bianca Smith [place] - [facility] 5 13:59:18 Date Recorded Body height Heart rate Oxygen saturation Oxygen saturation in Arterial blood by Pulse oximetry Heart rate Body temperature Body mass index (BMI) Body weight Systolic blood pressure Diastolic blood pressure Provider Name and Address Organization Details Last Updated DateTime 5 160.02 cm 60 /min 97 % 97 % 60 /min 97.7 [degF] 49.6 kg/m2 847087. 86 g 119 mm[Hg] 79 mm[Hg] Bianca ELLER - [facility] 5 13:31:54 Date Recorded Body height Body temperature Oxygen saturation Oxygen saturation in Arterial blood by Pulse oximetry Inhaled oxygen flow rate Heart rate Body mass index (BMI) Body weight Systolic blood pressure Diastolic blood pressure Provider Name and Address Organization Details Last Updated DateTime 3 157.48 cm 97.1 [degF] 98 % 98 % 2 L/min 89 /min 48.3 kg/m2 541480. 39 g 128 mm[Hg] 98 mm[Hg] Phillip Morrison [facility] & [place] 3 13:04:48 Date Recorded Body height Body mass index (BMI) Body weight Systolic blood pressure Diastolic blood pressure Provider Name and Address Organization Details Last Updated DateTime 08/07/2023 157.48 cm 49.4 kg/m2 450268.9 4 g 125 mm[Hg] 75 mm[Hg] Britney Yee [facility] & [place] 3 15:05:24 Date Recorded Body height Body mass index (BMI) Body weight Systolic blood pressure Diastolic blood pressure Provider Name and Address Organization Details Last Updated DateTime 09/25/2023 157.48 cm 51.2 kg/m2 987634.8 6 g 126 mm[Hg] 76 mm[Hg] Ioana Ayala [facility] & [place] 3 15:07:04 Social History Question Answer Notes LastModified by [employer] ion Details LastModified Time Tobacco Smoking Status Never Smoker [facility] [place] 10/03/2022 14:32:09 Do You Have An Advance Directive? No Information not available 10/03/2022 Are You Blind Or Do You Have Difficulty Seeing? No Information not available 10/03/2022 What Was The Date Of Your Most Recent Tobacco Screening? 09/17/2022 Information not available 10/03/2022 Do You Have Any Pets? Yes [email or web address] Information not available 09/25/2023 Are You Passively Exposed To Smoke? No Information not available 10/03/2022 Are You Currently In School? No [employer] [email or web address] Information not available 09/25/2023 Sex: Female Functional Status Question Answer Note LastModified by Organizat ion Details LastModified Time Do you use any illicit or recreational drugs? No Information not available 10/03/2022 What is your level of alcohol consumption? 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 Occasional Information not available 10/03/2022 Mental Status Question Answer Note LastModified by Organization D etails LastModified Time Do you feel stressed (tense, restless, nervous, or anxious, or unable to sleep at night)? [id number] Information not available 10/03/2022 Family History Relationship [...] SNOMED-CT Code Diagnosis ICD10 Code Diagnosis Note [id number] [facility] [address] [facility],[address] [place] [address] 10/03/2022 14:07:23 10/03/2022 15:38:25 Syncope [id number] R55 She has been experienci ng these stereotypi georges passing out episodes for five years. No definite witnessed convulsion s but some associated brief confusion afterwards .will order EEG to rule out neurologic causes of syncope Hypersomnia [id number] G47 .10 She describes some significan t episodes of pathologic al sleepiness . She will fall asleep without warning in the middle of talking. This is very infrequent but can be suggestive of narcolepsy . Will order PSG with MSLT to evaluate this in more detail. 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 [id number] Silvio Valdez MD [facility] Urology [address] [place] [address],[address] [place] [address] 08/07/2023 14:35:57 08/07/2023 15:40:17 Recurrent urinary tract infection 643022546 N39.0 Kidney stone 81978993 N2 0.0 Chronic th oracic back pain [id number] 60070 M54.6 Microscopic hematuria 19 8105973 R31.29 [id number] Silvio Valdez MD [facility] Urology [address] [place] [address],[address] [place] [address] 09/25/2023 14:26:57 09/25/2023 15:25:02 Recurrent urinary tract infection 774198173 N39.0 Kidney stone 25912773 N2 0.0 Microscopic hematuria 19 9088421 R31.29 [id number] [facility] [address] [facility] [address] [place] [address] 02/23/2025 13:48:33 02/23/2025 14:17:11 Recurrent urinary tract infection 026836057 N39.0 Will check lab work. Will send urine off for a culture. Will see patient back in 1 week. 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 Patient will follow up in 2 weeks. Call the office if anything persists or worsens. 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 see above Health Concerns Section Related Observation LastModified by Organization Detai ls LastModified Time None Recorded Concern Status LastModified by Organization Details LastModified Time None Recorded Advance Directives Directive N: Payers Insurance Date Sequence Insurance Name Policy Number Policy Valdivia Covered Member ID Valdivia Member ID Guarantor Name 09/18/2023 1 [employer] [facility] (POS II) [facility] [id number] [facility] 02/27/2025 1 [facility] (MEDICAID HMO) [facility] [id number] [facility] Notes Date Note Type Note Provider [...] time. 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 Micheline Lackey MD [address] [facility], [place], [address], [facility] - [place] & [place] 04/18/2023 12:50:43 08/07/2023 text/html Location: Histor y [...] status post hysterectomy. Silvio Valdez MD [address] [facility], [place], [address], [facility] - [facility] - [place] & [place] 08/07/2023 15:35:17 09/25/2023 text/html Patient returns to [...] hysterectomy. Silvio Valdez MD [address], [place], [address], [facility] & [place] 09/25/2023 15:30:10 02/23/2025 text/html patient presents to [...] 2025. Marilou David APRN [address], [place], [address], [facility] & [place] 02/24/2025 10:59:38 03/02/2025 text/html patient presents to clinic for follow up. Urine culture results received. Patient denies any fever. She is scheduled to have surgery to remove her stone on . Marilou David APRN [address], [place], [address], [facility] - [facility] & [place] 03/02/2025 13:35:40 OBGyn Episode No OBEpisode recorded.
--- OUTSIDE RECORDS SUMMARY | 2025-04-05 11:48 | XMS_ITS | Clinical Summary ---
Author Organization [facility] Address [address] [place] [address] Care Team Providers Care Dining Services Director Name Role Phone Juarez Griffin MD Primary Care Provider [phone] Karen Naqvi DO Unavailable [phone] Allergies Active Allergy Reactions Criticality Noted Date [...] Team Description 03/12/2025 Orders Only External Location [address] [place] [address] Provider, External from Last 3 Months Immunizations [...] drink first t yue in the morning (EYE-LAST REMODELER REPAIRER) to steady your nerves or to [...] PPSV23) 11/01/2021 09/06/2021 [facility]-Breast Cancer Screening 2023 [id number] Vaccine ( - season) 2024 10/07/2022, 08/21/2021 [...] this topic Medical Devices Implanted Type Area Timber Buyer Device Identifier Shelf Expiration Date Model / Serial / Lot Stent Ureteral Double Pigtail Pos 6fr 24cm - [id number] - [id number] Implanted:Qty: 1 on 04/11/2024 by Harvey Macdonald MD at [facility] Stent Right: U[id number] 01/02/2026 [id number] / [id number] / [id number] Loop Recorder-2016 Implanted:04/28 (Quantity not on file) Chest Mass Vector [id number] / / Procedures Procedure Name Priority [...] Reactive Non Reactive 04/10/2024 7:25 PM EDT Setup LAB Comment:Screening for HIV 1 & 2 antibodies, and P24 antigen is NONREACTIVE. No confirmatory testing is required. Blood Venous blood specimen / Unknown Venipuncture / Unknown 04/10/2024 6:11 PM EDT 04/10/2024 6:27 PM EDT us Susan Mcclure MD LAB BLOOD ORDERABLES Final Re sult Performing Organization Address [facility] de Phone Number HEALTHCARE LAB [address] [place] [address] * Hepatitis C Antibody - ED (04/10/2024 6:11 PM EDT) Hepatitis C Antibody Negative Negative 04/10/2024 7:24 PM EDT HEALTHCARE LAB Blood Venous blood specimen / Unknown Venipuncture / Unknown 04/10/2024 6:11 PM EDT 04/10/2024 6:26 PM EDT us Susan Mcclure MD LAB BLOOD ORDERABLES Final Re sult Performing Organization Address [facility] de Phone Number HEALTHCARE LAB [address] [place] [address] * (ABNORMAL) Hemoglobin A1c (04/10/2024 6:11 PM EDT) Pathologist [facility] Hemoglobin A1c 6.3(H) <5.7 % 04/10/2024 9:31 [...] Adults <6.0% Children and Adolescents <7.5% Source: [employer] Diabetes Association. Standards of medical care in diabetes,2017. Diabetes Care.2017:40 (suppl 1):S1-S135. HbA1c assay performed by an ion-exchange chromatography method that is certified traceable to the [facility]. us Joselito Berrios MD LAB BLOOD ORDERABLES Final Re sult HEALTHCARE LAB [address] [place] [address] from Last 3 Months or Most Recently Relevant to Health Maintenance Additional Health Concerns Infection Onset Date Last Indicated ESBL Comment:+ 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 Source: [facility]. This patient will require contact precautions indefinitely. 04/01/2024 Insurance [employer] MEDICAID Advance Directives * Full Code (Latest Code Status on File) Date Activated Date Inactivated Comments 04/11/2024 10:12 AM 04/12/2024 3:22 PM Question Answer Comments Patient has decision-making capacity? Yes Care Teams Dining Services Director Relationship Specialty Start Date End Date Juarez Griffin MD [address] [facility] [address] [place] [address] PCP - General 03/10/21 Karen Naqvi DO [address] [facility] [address] [place] [address] Referring Physician Obstetrics and Gynecology 09/23/24
--- OUTSIDE RECORDS SUMMARY | 2025-04-05 11:48 | XMS_ITS | Clinical Summary ---
Author Organization [facility] Address [address] [place] [address] Care Team Providers Care International Freight Forwarder Name Role Phone Juarez Griffin MD Primary Care Provider [phone] Allergies Active Allergy Reactions Criticality Noted Date [...] place to sleep or slept in a penitentiary (including now)? No 12/27/2023 Utilities Answer Date [...] your living situation today? I have a [facility] place to live 12/27/2023 Think about the [...] Do you speak a language other than [facility]? No 12/27/2023 Do you want help [...] Completed 10/30/2023, Medical Devices Implanted Type Area Train Reservation Clerk Device Identifier Shelf Expiration Date Model / Serial / Lot Loop Recorder LOOP RECORDER Left: Chest Insurance AETNA [facility] Advance Directives For more information, please contact: [phone] * Full Code (Latest Code Status on File) Date Activated Date Inactivated Comments 12/27/2023 3:21 AM 12/30/2023 2:53 PM -Attempt Resus citation if person has no pulse and is not breathing. -If no pulse or not breathing attempt CPR/CODE. -Call Rapid Response if patient is in distress. Care Teams International Freight Forwarder Relationship Specialty Start Date End Date Juarez Griffin MD [address] [place] [address] [place] [address] PCP - General General Internal Medicine 12/30/23
--- OUTSIDE RECORDS SUMMARY | 2025-04-05 11:48 | XMS_ITS | Continuity of Care Document ---
Author Organization [facility] [place] Infectious Disease -105 Address [address] [place] [address] Care Team Providers Care Structural Metal Worker Name Role Phone ZAHRAA BENAVIDES Primary [...] and Address Organization Details Recorded Time Syncope 966476194 Active 2021 Malina Hernandez DO [address], [place], [address] , [facility] & [place] 2 15:33:04 Hypersomnia 48677172 Active 2021 Malina Hernandez DO [address], [place], [address] [facility] & [place] 2 15:34:08 Problem Notes None recorded. Procedures Surgical History Date Name Laterality Status Provider Name and Address Organization Details Recorded Time 09/25/20 23 Cystoscopy-Female completed Silvio Valdez MD [address] , [place], [address], [facility] & [place] 09/25/2023 15:26:11 04/04/20 22 Date of Last Pap Smear completed Vandana Harris [facility] & [place] 10/03/2022 14:31:43 10/28/19 22 Director Dental Services Surgery completed Vandana ELLER - [facility] - [place] & [place] 10/03/2022 14:45:45 10/28/19 17 Cholecystectomy completed Vandana ELLER - [facility] & [place] 10/03/2022 14:32:27 10/28/19 14 Other completed Vandana ELLER - [facility] & [place] 10/03/2022 14:44:51 cardiac catheterization completed Vandana ELLER - [facility] & [place] 10/03/2022 14:46:31 strabismus surgery completed Vandana ELLER - [facility] & [place] 10/03/2022 14:55:15 Imaging Results None recorded. Procedure Notes None recorded. Medical Equipment None Reported. Allergies Allergen ID Allergen Name Allergen Category Reaction Reaction Severity Criticality Documentation Date Start Date Code Code System Note Provider Name and Address Organization Details Recorded Time 09182 aspirin medicatio n chest pain wheezing moderate severe Not available 10/02/2022 1191 RxNorm Vandana catherine, [place] - [facility] & [place] 09:22:42 61089 Bactrim medicatio n arthralgi a (joint pain) muscle cramps severe severe Not available 10/02/2022 04171 9 RxNorm Vandana catherine, [place] - [facility] & [place] 09:22:49 41646 insect venom environme nt confusion cough dizziness fever flushing headache wheezing moderate moderate moderate mild moderate moderate moderate Not available 10/02/2022 77677 UNK Vandana catherine, [place] - [facility] & [place] 09:23:13 88824 Pneumococ georges vaccine Not available anaphylax is chest pain facial swelling nausea rash wheezing moderate moderate moderate moderate moderate moderate Not available 10/02/2022 33922 7 RxNorm Vandana [place], [place] - [facility] & [place] 09:23:25 36542 rosuvasta tin medicatio n eye swelling facial swelling respirato ry distress moderate moderate moderate Not available 10/02/2022 16033 2 RxNorm [place] Reed - [facility] - [place] & [place] 2 09:23:35 Medications Name [...] % 60 /min 97.7 [degF] 49.6 kg/m2 433033. 86 g 119 mm[Hg] 79 mm[Hg] Bianca Smith [facility] & [place] 13:31:54 Social History Question Answer Notes LastModified by Organizat ion Details LastModified Time Tobacco Smoking Status Never [facility] [place] 10/03/2022 14:32:09 Do You Have An Advance Directive? No Information not available 10/03/2022 Are You Blind Or Do You Have Difficulty Seeing? No Information not available 10/03/2022 What Was The Date Of Your Most Recent Tobacco Screening? 09/17/2022 Information not available 10/03/2022 Do You Have Any Pets? Yes [email or web address] Information not available 09/25/2023 Are You Passively Exposed To Smoke? No Information not available 10/03/2022 Are You Currently In School? No MASTERS [email or web address] Information not available 09/25/2023 Sex: Female Functional Status Question Answer Note LastModified by Organizat ion Details LastModified Time Do you use any illicit or recreational drugs? No Information not available 10/03/2022 What is your level of alcohol consumption? 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 Occasional Information not available 10/03/2022 Mental Status Question Answer Note LastModified by Organization D etails LastModified Time Do you feel stressed (tense, restless, nervous, or anxious, or unable to sleep at night)? [id number] Information not available 10/03/2022 Family History Relationship [...] SNOMED-CT Code Diagnosis ICD10 Code Diagnosis Note [id number] [facility] -[address] [address] 02/23/2025 13:48:33 02/23/2025 14:17:11 Recurrent urinary tract infection 847222121 N39.0 Will check lab work. Will send urine off for a culture. Will see patient back in 1 week. 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 Patient will follow up in 2 weeks. Call the office if anything persists or worsens. 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 Urine culture results received. Patient denies any fever. She is scheduled to have surgery to remove her stone on . Marilou David, MANAGER TECHNOLOGY [address], [place], [address], [place] - [facility] - [place] & [place] 03/02/2025 13:35:40 OBGyn Episode No OBEpisode recorded.
[2025-04-05 11:49] VITALS: BP 99/56; PULSE 52; RESP 16; TEMP 36.6; O2SAT 97
[2025-04-05] MEDS: SODIUM CHLORIDE 0.9% 50ML BAG 50 ML IV (11:49)
[2025-04-05] MEDS: ERTAPENEM SODIUM 1 GM in 0.9 % SODIUM CHLORIDE 50 ML IV (11:49)
[2025-04-05 12:23] VITALS: BP 102/54; PULSE 58; RESP 16; TEMP 36.6; O2SAT 97
== END 2025-04-05 12:25 | disposition home or self-care (01) ==
LOC: INF 11:37
PROVIDERS: PCP Internal Medicine; Visit Provider Urology
DX: N39.0 Urinary tract infection, site not specified (principal); B96.4 Proteus (mirabilis) (morganii) as the cause of diseases classified elsewhere; Z16.24 Resistance to multiple antibiotics
CPT/HCPCS: 96365; J1335

== ENCOUNTER 2025-04-06 12:24 | Outpatient (CLI) | payer OTHER, SELFPAY ==
--- OUTSIDE RECORDS SUMMARY | 2025-04-06 12:29 | XMS_ITS | Clinical Summary ---
Author Organization [facility] Address [address] [facility] [address] [place] [address] Phone Care Team Providers Care News Production Supervisor Name Role Phone Zofia Perkins Unavailable Unavailable Conditions or Problems Problem Name Problem Code Onset Date Status Entry Date Provider Comment Standard Description Annotate Acute Pyelonephritis 14863052 (SNOMED CT) 01/07 Active 01/07 Malina Ames Acute pyelonephritis Obstructive uropathy with infection N13.6 (ICD-10-C M) 01/07 Active 01/07 Malina Ames Pyonephrosis Neutrophilic leukemoid reaction D72.823 (ICD-10-C M) 01/07 Active 01/07 Malina Ames Leukemoid reaction COPD 17596314 (SNOMED CT) 01/07 Active 01/07 Malina Ames Chronic obstructive pulmonary disease Morbid obesity due to excess calories E66.01 (ICD-10-C M) 01/07 Active 01/07 Malina Ames Morbid (severe) obesity due to excess calories DM Type II E11.9 (ICD-10-C M) 01/07 Active 01/07 Malina Ames Type 2 diabetes mellitus without complications Benign hypertensive heart disease with chronic diastolic heart failure (I50.32) 72695712 (SNOMED CT) 01/07 Active 01/07 Malina Ames Benign hypertension Medications Medication Instructions Start Date Stop Date Generic Name [facility] Provider FOSFOMYCIN TROMETHAMINE 3 GM PACK Take 1 packet by mouth as directed take 1 packet every 3-4 days (2 times weekly) fosfomycin tromethamine 84219806089 Calvin Villarreal MD PREDNISONE 20 MG TABS prednisone 22142708110 Milly Jabierbrianne VITAMIN C 500 MG CAPS twice a day ascorbic acid (vitamin c) 31227668296 Milly Mosquera HIPREX 1 GM TABS Take 1 tablet by mouth twice a day 02/18 methenamine hippurate 96307311263 Calvin Villarreal MD INDOMETHACIN 50 MG CAPS Take 1 capsule by mouth three times a day indomethacin 71653466450 Linda De Leon SUCRALFATE 1 GM TABS Take 1 tablet by mouth four times a day sucralfate 77758556791 Linda De Leon BUMETANIDE 2 MG TABS Take 1 tablet by mouth twice a day bumetanide 92907670086 Linda De Leon PRAVASTATIN SODIUM 10 MG TABS Take 1 tablet by mouth every night pravastatin 01886723738 Linda De Leon ENTRESTO 24-26 MG TABS Take 1 tablet by mouth twice a day sacubitril-valsa rtan 99708962094 Linda De Leon VENTOLIN HFA 108 (90 Base) MCG/ACT AERS Inhale 2 puff by mouth every four to six hours as needed albuterol sulfate 90419603619 Linda De Leon ADVAIR DISKUS 250-50 MCG/ACT AEPB Inhale 1 puff twice a day fluticasone propion-salmeter ol 54325001895 Linda De Leon OMEPRAZOLE 20 MG CPDR Take 1 capsule by mouth once a day omeprazole 88004744820 Linda De Leon METFORMIN HCL 500 MG TABS Take 1 tablet by mouth twice a day metformin 34212625340 Linda De Leon FARXIGA 10 MG TABS Take 10 mg by mouth once a day dapagliflozin propanediol 79430290172 Linda De Leon IBUPROFEN (IBUPROFEN) 800 MG TABS Take 1 tablet by mouth every six hours as needed IBUPROFEN Linda De Leon TIZANIDINE HCL 4 MG TABS Take 1 tablet by mouth as needed tizanidine 97315488136 Linda De Leon TRAMADOL HCL 50 MG TABS every twelve hours tramadol 33760217651 Linda De Leon NITROGLYCERIN 0.[address] 1 tablet under tongue as needed nitroglycerin 71826572253 Linda Moises ONDANSETRON HCL 4 MG TABS Take 1 tablet by mouth every eight hours as needed ondansetron hcl 67459851056 Linda Moises SPIRONOLACTONE 50 MG TABS Take 1 tablet by mouth once a day spironolactone 13868433774 Linda De Leon SITagliptin (JANUVIA) 25 MG tablet Take 1 tablet by mouth once a day JANOLIVER De Leon NEBIVOLOL HCL 5 MG TABS Take 1 tablet by mouth once a day nebivolol 03261444800 Jazieltyree De Leon GLYXAMBI 10-5 MG TABS Take 1 tablet by mouth once a day empagliflozin-li nagliptin 35199057312 Linda De Leon VENTOLIN HFA 108 (90 Base) MCG/ACT AERS INHALE TWO PUFFS BY MOUTH EVERY 4 TO 6 HOURS NEEDED 01/19 albuterol sulfate 03770178844 QIE qieuser TRAMADOL HCL 50 MG TABS Every 12 (Twelve) Hours. 01/19 tramadol 89167683146 QIE qieuser TIZANIDINE HCL 4 MG TABS Take 1 tablet by mouth As Needed. 01/19 tizanidine 45565677424 QIE qieuser SUCRALFATE 1 GM TABS Take 1 tablet by mouth 4 (Four) Times a Day. 01/19 sucralfate 94888020158 QIE qieuser SPIRONOLACTONE 50 MG TABS TAKE ONE TABLET BY MOUTH EVERY DAY 01/19 spironolactone 90089513534 QIE qieuser SITagliptin (JANUVIA) 25 MG tablet Take 1 tablet by mouth Daily. 01/19 JANUVIA QIE qieuser PRAVASTATIN SODIUM 10 MG TABS TAKE ONE TABLET BY MOUTH EVERY DAY AT BEDTIME 01/19 pravastatin 55759857814 QIE qieuser ONDANSETRON HCL 4 MG TABS Take 1 tablet by mouth Every 8 (Eight) Hours As Needed. 11/10 ondansetron hcl 46331821577 QIE qieuser OMEPRAZOLE 20 MG CPDR TAKE ONE CAPSULE BY MOUTH EVERY DAY 01/19 omeprazole 98850785026 QIE qieuser O2 (OXYGEN) 2 L by Alternating Nares route Every Night. OXYGEN QIE qieuser NITROGLYCERIN 0.[address] 1 tablet under the tongue As Needed for Chest Pain. 01/19 nitroglycerin 52066699618 QIE qieuser NEBIVOLOL HCL 5 MG TABS TAKE ONE TABLET BY MOUTH EVERY DAY 01/19 nebivolol 73384384993 QIE qieuser METFORMIN HCL 500 MG TABS Take 1 tablet by mouth 2 (Two) Times a Day. 01/19 metformin 87505094270 QIE qieuser IPRATROPIUM-ALBUT MIK 0.5-2.5 (3) MG/3ML SOLN ipratropium-albu terol 49453458142 QIE qieuser INDOMETHACIN 50 MG CAPS Take 1 capsule by mouth 3 (Three) Times a Day With Meals. 01/19 indomethacin 98192449967 QIE qieuser IBUPROFEN (IBUPROFEN) 800 MG TABS Take 1 tablet by mouth Every 6 (Six) Hours As Needed. 01/19 IBUPROFEN QIE qieuser ENTRESTO 24-26 MG TABS TAKE ONE TABLET BY MOUTH TWICE DAILY 01/19 sacubitril-valsa rtan 79053226638 QIE qieuser GLYXAMBI 10-5 MG TABS Take 1 tablet by mouth Daily. 01/19 empagliflozin-li nagliptin 16398502920 QIE qieuser FARXIGA 10 MG TABS Take 10 mg by mouth Daily. 01/19 dapagliflozin propanediol 10260315676 QIE qieuser BUMETANIDE 2 MG TABS TAKE ONE TABLET BY MOUTH TWICE DAILY 01/19 bumetanide 12379393509 QIE qieuser ADVAIR DISKUS 250-50 MCG/ACT AEPB Inhale 1 puff 2 (Two) Times a Day. 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
--- OUTSIDE RECORDS SUMMARY | 2025-04-06 12:30 | XMS_ITS | Continuity of Care Document ---
Author Organization [facility] Infectious Disease -105 Address [address] [place] [address] Care Team Providers Care Figure Model Name Role Phone SHERI BENAVIDESGHT Primary Care Provider [phone] Assessment No assessment recorded. Plan of Treatment Reminders Order Date Submit Date Provider Last Modified By Organization Details Last Modified Time Details Appointments None recorded. Lab urinalysis, dipstick [address] Infectious Disease -105, [address] [facility] [address], [place], [address], 14:18:52 CBC w/ diff 2024 025 [facility] (Registration ), [address] [facility], [place], [address], 16:11:55 CMP, serum or plasma 2024 025 [facility] (Registration ), [address] [facility], [place], [address], 5 15:39:03 ESR (erythrocyt e sedimentati on rate), blood [address] (Registration ), [address] [facility], [place], [address], 5 08:54:47 C-reactive protein, quantitativ e, serum or plasma 2024 025 [id number] [facility] (Registration ), [address], [place], [address], 08:54:48 culture, urine 2024 025 [facility], [address], [address], [place], [address], 19:09:52 Referral None recorded. Procedures None recorded. Surgeries None recorded. Imaging None recorded. Medication Orders None recorded. Patient TargetsNo targets recorded. Patient InstructionsNo instructions recorded. Reason for Referral None Reported. Results Created Date Observation Date Name Description Value Unit Range Abnormal Flag Note LastModifiedBy Organization Detail LastModifiedTime 02/24/2002/23/2025 urina lysis , dipst ick Leukocytes (reference range) trace Not Available [facility] Infectious Disease -[facility] [address] [facility] [address], [place], [address], 02/23/2025 14:16:48 02/24/20 25 02/23/2025 urina lysis , dipst ick Nitrite (reference range:) negati ve Not Available [facility] Infectious Disease -[facility] [address], [place], [address], 02/23/2025 14:16:48 02/24/20 25 02/23/2025 urina lysis , dipst ick Urobilinogen (reference range) 0.2 Not Available [facility] Infectious Disease -[facility] [address], [place], [address], 02/23/2025 14:16:48 02/24/20 25 02/23/2025 urina lysis , dipst ick Protein (reference range) negati ve Not Available [facility] Infectious Disease -[facility] [address] [facility] [address], [place], [address], 02/23/2025 14:16:48 02/24/20 25 02/23/2025 urina lysis , dipst ick pH (reference range 5-8.5) 6.0 Not Available [place] [address] [address] [facility] [address], [place], [address], 02/23/2025 14:16:48 02/24/20 25 02/23/2025 urina lysis , dipst ick Blood (reference range:) small Not Available [place] [address] [address] [facility] [address], [place], [address], 02/23/2025 14:16:48 02/24/20 25 02/23/2025 urina lysis , dipst ick Specific [place] (reference range) 1.015 Not Available [place] [address] [address] [facility] [address], [place], [address], 02/23/2025 14:16:48 02/24/20 25 02/23/2025 urina lysis , dipst ick Ketone (reference range) negati ve Not Available [place] [address] [address] [facility] [address], [place], [address], 02/23/2025 14:16:48 02/24/20 25 02/23/2025 urina lysis , dipst ick Bilirubin (reference range) negati ve Not Available [place] [address] [address] [facility] [address], [place], [address], 02/23/2025 14:16:48 02/24/20 25 02/23/2025 urina lysis , dipst ick Glucose (reference range) 500 Not Available [place] [address] [address] [facility] [address], [place], [address], 02/23/2025 14:16:48 02/24/20 25 02/23/2025 urina lysis , dipst ick Color (reference range: yellow-brown ) Dark Yellow Not Available [facility] Infectious Disease -[address], [place], [address], 02/23/2025 14:16:48 Result Notes None recorded. Problems Name Problem SNOMED Code Status Onset Date Resolution Date Notes Provider Name and Address Organization Details Recorded Time Syncope 765422325 Active 2021 Malina Hernandez DO [address] [facility], [place], [address] , [place] - [facility] - [place] & [place] 15:33:04 Hypersomnia 62774132 Active 2021 Malina Hernandez DO [address] [facility], [place], [address] , [place] [facility] [place] 15:34:08 Problem Notes None recorded. Procedures Surgical History Date Name Laterality Status Provider Name and Address Organization Details Recorded Time 09/25/20 23 Cystoscopy-Female completed Silvio Valdez MD [address] [facility], [place], [address], [place] [facility] - [place] & [place] 09/25/2023 15:26:11 04/04/20 22 Date of Last Pap Smear completed Vandana Dalla [place] [facility] [place] 10/03/2022 14:31:43 10/28/19 22 Digital Printer Operator Surgery completed Vandana Dalla [place] [facility] [place] 10/03/2022 14:45:45 10/28/19 17 Cholecystectomy completed Vandana Dalla [place] [facility] [place] 10/03/2022 14:32:27 10/28/19 14 Other completed Vandana Dalla [place] [facility] [place] 10/03/2022 14:44:51 cardiac catheterization completed Vandana Dalla [place] [facility] [place] 10/03/2022 14:46:31 strabismus surgery completed Vandana Dalla [place] [facility] [place] 10/03/2022 14:55:15 Imaging Results None recorded. Procedure Notes None recorded. Medical Equipment None Reported. Allergies Allergen ID Allergen Name Allergen Category Reaction Reaction Severity Criticality Documentation Date Start Date Code Code System Note Provider Name and Address Organization Details Recorded Time 58181 aspirin medicatio n chest pain wheezing moderate severe Not available 10/02/2022 1191 RxNorm V[facility]ana catherine, [facility] [place] 2 09:22:42 74985 Bactrim medicatio n arthralgi a (joint pain) muscle cramps severe severe Not available 10/02/2022 54746 9 RxNorm Vandana catherine, RAFITA DARLING [facility] & [place] 2 09:22:49 15007 insect venom environme nt confusion cough dizziness fever flushing headache wheezing moderate moderate moderate mild moderate moderate moderate Not available 10/02/2022 43399 UNK Vandana catherine, RAFITA Shea [facility] & [place] 2 09:23:13 65596 Pneumococ georges vaccine Not available anaphylax is chest pain facial swelling nausea rash wheezing moderate moderate moderate moderate moderate moderate Not available 10/02/2022 98871 7 RxNorm Vandana catherine, RAF[place] DARLING [facility] & [place] 2 09:23:25 21442 rosuvasta tin medicatio n eye swelling facial swelling respirato ry distress moderate moderate moderate Not available 10/02/2022 93309 2 RxNorm Vandana catherine, RAF[place] DARLING [facility] & [place] 2 09:23:35 Medications [...] % 80 /min 98.6 [degF] 49.6 kg/m2 832123. 86 g 116 mm[Hg] 100 mm[Hg] Bianca Smith [place] - [facility] [place] & [place] 5 13:59:18 Social History Question Answer Notes LastModified by [employer] Details LastModified Time Tobacco Smoking Status Never Smoker Vandana Harris [place], [place] - [facility] [place] & [place] 10/03/2022 14:32:09 Do You Have [...] Functional Status Question Answer Note LastModified by [employer] Details LastModified Time Do you use any illicit or recreational drugs? No Information not available 10/03/2022 What is your level of alcohol consumption? 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 Occasional Information not available 10/03/2022 Mental Status Question Answer Note LastModified by Organization D etails LastModified Time Do you feel stressed (tense, restless, nervous, or anxious, or unable to sleep at night)? [id number] Information not available 10/03/2022 Family History Relationship [...] SNOMED-CT Code Diagnosis ICD10 Code Diagnosis Note [id number] Marilou Herbert in, ASSURANCE ASSOCIATE [facility] Infectiou s Disease -[address] [place] [address] 02/23/2025 13:48:33 02/23/2025 14:17:11 Recurrent urinary tract infection 931426269 N39.0 Will check lab work. Will send urine off for a culture. Will see patient back in 1 week. Health Concerns Section Related Observation LastModified by Organization Detai ls LastModified Time None Recorded Concern Status LastModified by Organization Details LastModified Time None Recorded Payers Encounter Date Sequence Insurance Name Policy Number Policy Valdivia Covered Member ID Valdivia Member ID Guarantor Name 02/23/2025 1 [facility] (MEDICAID HMO) Lissystas Valdez [id number] Lissy Valdez Notes Date Note Type Note [...] 2025. Marilou David, PREETI [address], [place], [address], [facility] - [place] & [place] 02/24/2025 10:59:38 OBGyn Episode No OBEpisode recorded.
--- OUTSIDE RECORDS SUMMARY | 2025-04-06 12:30 | XMS_ITS | Clinical Summary ---
Author Organization [facility] [employer] [facility] Address [address] [place] [address] Care Team Providers Care Manual Lathe Machinist Name Role Phone Juarez Griffin MD Primary Care Provider [phone] Allergies Active Allergy Reactions Criticality Noted Date [...] place to sleep or slept in a longterm (including now)? No 12/27/2023 Utilities Answer Date [...] your living situation today? I have a [facility] place to live 12/27/2023 Think [...] Do you speak a language other than [place] at [facility]? No 12/27/2023 Do you want help with [...] Completed 10/30/2023, Medical Devices Implanted Type Area Patient Care Director Device Identifier Shelf Expiration Date Model / Serial / Lot Loop Recorder LOOP RECORDER Left: Chest Insurance AETNA [facility] Advance Directives For more information, please contact: [phone] * Full Code (Latest Code Status on File) Date Activated Date Inactivated Comments 12/27/2023 3:21 AM 12/30/2023 2:53 PM -Attempt Resus citation if person has no pulse and is not breathing. -If no pulse or not breathing attempt CPR/CODE. -Call Rapid Response if patient is in distress. Care Teams Manual Lathe Machinist Relationship Specialty Start Date End Date Juarez Griffin MD [address] [place] [address] PCP - General General Internal Medicine 12/30/23
--- OUTSIDE RECORDS SUMMARY | 2025-04-06 12:30 | XMS_ITS | Clinical Summary ---
Author Organization [facility] Address [address] [place] [address] Care Team Providers Care Clothing Supervisor Name Role Phone Juarez Griffin MD Primary Care Provider [phone] Karen Naqvi DO Unavailable [phone] Allergies Active Allergy Reactions Criticality Noted Date [...] Team Description 03/12/2025 Orders Only External Location [address] [place] [address] Provider, External from Last 3 Months Immunizations [...] drink first t yue in the morning (EYE-RACK PULLER) to steady your nerves or to get [...] PPSV23) 11/01/2021 09/06/2021 [facility]-Breast Cancer Screening 2023 [id number] Vaccine ( - season) 2024 10/07/2022, 08/21/2021 [...] this topic Medical Devices Implanted Type Area Taxi Driver Supervisor Device Identifier Shelf Expiration Date Model / Serial / Lot Stent Ureteral Double Pigtail Pos 6fr 24cm - [id number] - [id number] Implanted:Qty: 1 on 04/11/2024 by Harvey Macdonald MD at [facility] Stent Right: [employer]-[id number] 01/02/2026 [id number] / [id number] / [id number] Loop Recorder-2016 Implanted:04/28 (Quantity not on file) Chest Mobile System 7 [id number] / / Procedures Procedure Name Priority [...] Reactive Non Reactive 04/10/2024 7:25 PM EDT [facility] Comment:Screening for HIV 1 & 2 antibodies, and P24 antigen is NONREACTIVE. No confirmatory testing is required. Blood Venous blood specimen / Unknown Venipuncture / Unknown 04/10/2024 6:11 PM EDT 04/10/2024 6:27 PM EDT us Susan Mcclure MD LAB BLOOD ORDERABLES Final Re sult Performing Organization Address [facility] Co de Phone Number [facility]ARE [facility] [address] [place] [address] * Hepatitis C Antibody - ED (04/10/2024 6:11 PM EDT) Hepatitis C Antibody Negative Negative 04/10/2024 7:24 PM EDT [facility] Blood Venous blood specimen / Unknown Venipuncture / Unknown 04/10/2024 6:11 PM EDT 04/10/2024 6:26 PM EDT us Susan Mcclure MD LAB BLOOD ORDERABLES Final Re sult Performing Organization Address [facility] de Phone Number [facility]ALTHCARE [facility] [address] [place] [address] * (ABNORMAL) Hemoglobin A1c (04/10/2024 6:11 PM EDT) Pathologist [facility] Hemoglobin A1c 6.3(H) <5.7 % [...] Adults <6.0% Children and Adolescents <7.5% Source: [place] Diabetes Association. Standards of medical care in diabetes,2017. Diabetes Care.2017:40 (suppl 1):S1-S135. HbA1c assay performed by an ion-exchange chromatography method that is certified traceable to the [facility]. 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 Source: [facility]. This patient will require contact precautions indefinitely. 04/01/2024 Insurance [employer]ICAID Advance Directives * Full Code (Latest Code Status on File) Date Activated Date Inactivated Comments 04/11/2024 10:12 AM 04/12/2024 3:22 PM Question Answer Comments Patient has decision-making capacity? Yes Care Teams Clothing Supervisor Relationship Specialty Start Date End Date Juarez Griffin MD [address] [facility] [place] [address] PCP - General 03/10/21 Karen Naqvi DO [address] [facility] [address] [place] [address] Referring Physician Obstetrics and Gynecology 09/23/24
--- OUTSIDE RECORDS SUMMARY | 2025-04-06 12:30 | XMS_ITS | Encounter Summary ---
Author Organization [facility] Address [address] [place] [address] Care Team Providers Care Onion Farmer Name Role Phone Juarez Griffin MD Primary Care Provider [phone] Karen Naqvi DO Unavailable [phone] Encounter Details Date Type Department Care Team ([facility] st Contact Info) Description 02/12/2024 Orders Only External Location [address] [place] [address] Gennaro Cuevas MD [facility] [address] [place] [address] Social History Tobacco Use Types Packs/Day Years [...] Comment:+ 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 Source: [facility]. This patient will require contact precautions indefinitely. 04/01/2024 documented as of this encounter Care Teams Onion Farmer Relationship Specialty Start Date End Date Juarez Griffin MD [address] [place] [address] PCP - General 03/10/21 Karen Naqvi DO [facility] [address] [place] [address] Referring Physician Obstetrics and Gynecology 09/23/24 documented as of this encounter
--- OUTSIDE RECORDS SUMMARY | 2025-04-06 12:30 | XMS_ITS | Data Portability ---
Author Organization [facility] [place] [facility] [place] Alejandro ADMIN Address [address] [place] [id number] Care Team Providers Care Tire Layer Name Role Phone ZAHRAA BENAVIDES Primary Care [...] None recorded. Lab urinalysis, dipstick 2024 025 [email or web address] [facility] -105, [address], [place], [address], 5 14:18:52 CBC w/ diff 2024 025 [facility] (Registration ), [address], [place], [address], 5 16:11:55 CMP, serum or plasma 2024 025 [facility] (Registration ), [address], [place], [address], 5 15:39:03 ESR (erythrocyt e sedimentati on rate), blood [address] (Registration ), [address] [facility] [facility], [place], [address], 5 08:54:47 C-reactive protein, quantitativ e, serum or plasma [address] (Registration ), [address], [place], [address], 5 08:54:48 culture, urine 2024 025 CERRILLOS [facility], [address], [address], [place], [address], 5 19:09:52 urinalysis, dipstick 2022 023 [email or web address] [facility], [address] [facility], [address], [place], [address], 3 16:08:29 Referral None recorded. Procedures None [...] usal 7.7 - 58.5 Perfo rmed at: [facility] [address] [place] [address] 1269 Lab Direc tor: Los carson PhD, Phone : [phone] Not Available [facility] ([facility]) [address] [facility] [facility], [place], [address], 04/03/2023 10:13:10 04/02/20 23 04/03/2023 FSH FSH, serum 5.4 mIU/m L Adult Femal e: Folli cular phase 3.5 - 12.5 Ovula tion phase 4.7 - 21.5 Lutea l phase 1.7 - 7.7 Postm enopa usal 25.8 - 134.8 Perfo rmed at: [facility] [address] [place] [address] 1264 Lab Direc tor: Los carson PhD, Phone : [phone] Not Available [facility] ([facility]) [address] [facility] [facility], [place], [address], 04/03/2023 10:14:16 08/07/20 23 08/07/2023 urina lysis , dipst ick Leukocytes (reference range) trace Not Available [facility] [address] [facility] [address] [place] [address], [address], 08/07/2023 15:15:15 08/07/2008/07/2023 urina lysis , dipst ick Nitrite (reference range:) negati ve Not Available [facility] [address] [facility] [address], [place], [address], 08/07/2023 15:15:15 08/07/20 23 08/07/2023 urina lysis , dipst ick Urobilinogen (reference range) 0.2 Not Available [facility] [address] [place] [address] [address], [place], [address], 08/07/2023 15:15:15 08/07/2008/07/2023 urina lysis , dipst ick Protein (reference range) negati ve Not Available [facility] [address], [place], [address], 08/07/2023 15:15:15 08/07/2008/07/2023 urina lysis , dipst ick pH (reference range 5-8.5) 6.0 Not Available [facility] [address], [place], [address], 08/07/2023 15:15:15 08/07/2008/07/2023 urina lysis , dipst ick Blood (reference range:) small Not Available [facility] [address] [place] [address] [address], [place], [address], 08/07/2023 15:15:15 08/07/2008/07/2023 urina lysis , dipst ick Specific [place] (reference range) 1.015 Not Available [facility] [address], [place], [address], 08/07/2023 15:15:15 08/07/2008/07/2023 urina lysis , dipst ick Ketone (reference range) negati ve Not Available [address], [place], [address], 08/07/2023 15:15:15 08/07/2008/07/2023 urina lysis , dipst ick Bilirubin (reference range) negati ve Not Available [address], [place], [address], 08/07/2023 15:15:15 08/07/20 23 08/07/2023 urina lysis , dipst ick Glucose (reference range) 250 Not Available [facility] [address] [facility] [address], [place], [address], 08/07/2023 15:15:15 08/07/20 23 08/07/2023 urina lysis , dipst ick Color (reference range: yellow-brown ) Yellow Not Available [facility] [address] [facility] [address], [place], [address], 08/07/2023 15:15:15 02/24/20 25 02/23/2025 CBC AUTO W DIFF WBC 11.3 K/uL 4.0-10 .5 high Not Available [facility] ([facility]) [address] [facility], [place], [address], 02/23/2025 15:02:28 02/24/20 25 02/23/2025 CBC AUTO W DIFF RBC 5.7 M/mm3 4.2-6. 4 Not Available [facility] ([facility]) [address], [place], [address], 02/23/2025 15:02:28 02/24/20 25 02/23/2025 CBC AUTO W DIFF HGB 15.8 gm/dL 12.5-1 6.0 Not Available [facility] ([facility]) [address] [facility], [place], [address], 02/23/2025 15:02:28 02/24/20 25 02/23/2025 CBC AUTO W DIFF HCT 48.8 % 37.0-4 7.0 high Not Available [facility] ([facility]) [address], [place], [address], 02/23/2025 15:02:28 02/24/20 25 02/23/2025 CBC AUTO W DIFF MCV 86.4 fL 78-100 Not Available [facility] ([facility]) [address], [place], [address], 02/23/2025 15:02:28 02/24/20 25 02/23/2025 CBC AUTO W DIFF MCH 28.0 pg 27-31 Not Available [facility] ([facility]) [address], [place], [address], 02/23/2025 15:02:28 02/24/20 25 02/23/2025 CBC AUTO W DIFF MCHC 32.4 g/dL 32-36 Not Available [facility] ([facility]) [address], [place], [address], 02/23/2025 15:02:28 02/24/20 25 02/23/2025 CBC AUTO W DIFF RDW 13.7 % 11.5-1 4.0 Not Available [facility] ([facility]) [address], [place], [address], 02/23/2025 15:02:28 02/24/20 25 02/23/2025 CBC AUTO W DIFF platelet count 380 K/uL 150-45 0 Not Available [facility] ([facility]) [address], [place], [address], 02/23/2025 15:02:28 02/24/20 25 02/23/2025 CBC AUTO W DIFF MPV 10.3 fL 6-9.5 high Not Available [facility] ([facility]) [address], [place], [address], 02/23/2025 15:02:28 02/24/20 25 02/23/2025 CBC AUTO W DIFF neutrophil% 66.5 % 43-65 high Not Available [facility] ([facility]) [address], [place], [address], 02/23/2025 15:02:28 02/24/20 25 02/23/2025 CBC AUTO W DIFF lymphocyte% 24.3 % 20.5-4 5.5 Not Available [facility] ([facility]) [address], [place], [address], 02/23/2025 15:02:28 02/24/20 25 02/23/2025 CBC AUTO W DIFF monocyte% 6.0 % 5.5-11 .7 Not Available [facility] ([facility]) [address], [place], [address], 02/23/2025 15:02:02/24/20 25 02/23/2025 CBC AUTO W DIFF eosinophil% 2.3 % 0.9-2. 9 Not Available [facility] ([facility]) [address] [facility], [place], [address], 02/23/2025 15:02:28 02/24/20 25 02/23/2025 CBC AUTO W DIFF basophil% 0.6 % 0.2-1. 0 Not Available [facility] ([facility]) [address] [place], [address], 02/23/2025 15:02:28 02/24/20 25 02/23/2025 CBC AUTO W DIFF immature granulocytes % 0.3 % 0.0-0. 8 Not Available [facility] ([facility]) [address] [place], [address], 02/23/2025 15:02:28 02/24/20 25 02/23/2025 CBC AUTO W DIFF nucleated red blood cells % 0.0 % Not Available [facility] ([facility]) [address] [place], [address], 02/23/2025 15:02:28 02/24/20 25 02/23/2025 CBC AUTO W DIFF neutrophil# 7.5 K/uL 2.2-4. 8 high Not Available [facility] ([facility]) [address] [facility], [place], [address], 02/23/2025 15:02:28 02/24/20 25 02/23/2025 CBC AUTO W DIFF lymphocyte# 2.7 cell/ mcL 1.3-2. 9 Not Available [facility] ([facility]) [address], [place], [address], 02/23/2025 15:02:28 02/24/20 25 02/23/2025 CBC AUTO W DIFF monocyte# 0.7 cell/ mcL 0.3-0. 8 Not Available [facility] ([facility]) [address] [facility], [place], [address], 02/23/2025 15:02:28 02/24/20 25 02/23/2025 CBC AUTO W DIFF eosinophil# 0.3 cell/ mcL 0-0.2 high Not Available [facility] ([facility]) [address] [facility], [place], [address], 02/23/2025 15:02:28 02/24/20 25 02/23/2025 CBC AUTO W DIFF basophil# 0.1 cell/ mcL 0.0-1. 0 Not Available [facility] ([facility]) [address] [facility], [place], [address], 02/23/2025 15:02:28 02/24/20 25 02/23/2025 CBC AUTO W DIFF immature gramulocytes # 0.03 K/uL Not Available [facility] ([facility]) [address] [facility], [place], [address], 02/23/2025 15:02:28 02/24/20 25 02/23/2025 CBC AUTO W DIFF nucleated red blood cells # 0.00 K/uL Not Available [facility] ([facility]) [address] [facility], [place], [address], 02/23/2025 15:02:28 04/29/02/23/2025 CBC AUTO W DIFF manual differential NO Not Available [facility] ([facility]) [address], [place], [address], 02/23/2025 15:02:28 02/24/20 25 02/23/2025 COMP METAB OLIC PANEL sodium 138 mmol/ L 136-14 5 Not Available [facility] ([facility]) [address], [place], [address], 02/23/2025 15:39:03 02/24/20 25 02/23/2025 COMP METAB OLIC PANEL potassium 3.7 mmol/ L 3.6-5. 0 Not Available [facility] ([facility]) [address] , [place], [address], 02/23/2025 15:39:03 02/24/20 25 02/23/2025 COMP METAB OLIC PANEL chloride 98 mmol/ L 98-107 Not Available [facility] ([facility]) [address] , [place], [address], 02/23/2025 15:39:03 02/24/20 25 02/23/2025 COMP METAB OLIC PANEL carbon dioxide 26.8 mmol/ L 21.0-3 2.0 Not Available [facility] ([facility]) [address] , [place], [address], 02/23/2025 15:39:03 02/24/20 25 02/23/2025 COMP METAB OLIC PANEL anion gap 16.9 Not Available [facility] ([facility]) [address] [place], [address], 02/23/2025 15:39:03 02/24/20 25 02/23/2025 COMP METAB OLIC PANEL glucose 200 mg/dL 70-120 high Not Available [facility] ([facility]) [address], [place], [address], 02/23/2025 15:39:03 02/24/20 25 02/23/2025 COMP METAB OLIC PANEL BUN 12 mg/dL 7-18 Not Available [facility] ([facility]) [address], [place], [address], 02/23/2025 15:39:03 02/24/20 25 02/23/2025 COMP METAB OLIC PANEL creatinine 1.1 mg/dL 0.6-1. 3 Not Available [facility] ([facility]) [address], [place], [address], 02/23/2025 15:39:03 02/24/20 25 02/23/2025 COMP METAB [...] brown ing kiney funct ion. Not Available [facility] ([facility]) [address] , [place], [address], 02/23/2025 15:39:03 02/24/20 25 02/23/2025 COMP METAB OLIC PANEL osmolality (calculated) 293 mOsm/ kg 275-30 1 OSMOL ALITY IS A CALCU LATIO N UTILI ZING THE SERUM /PLAS MA SODIU M, GLUCO SE AND UREA NITRO GEN (BUN) LEVEL S. FOR THE MOST ACCUR ATE RESUL T A MEASU RED SERUM OSMOL ALITY IS SUGGE STED. Not Available [facility] ([facility]) [address], [place], [address], 02/23/2025 15:39:03 02/24/20 25 02/23/2025 COMP METAB OLIC PANEL total protein 8.1 g/dL 6.4-8. 2 Not Available [facility] ([facility]) [address] , [place], [address], 02/23/2025 15:39:03 02/24/20 25 02/23/2025 COMP METAB OLIC PANEL albumin 3.6 g/dL 3.4-5. 0 Not Available [facility] ([facility]) [address] , [place], [address], 02/23/2025 15:39:03 02/24/20 25 02/23/2025 COMP METAB OLIC PANEL globulin 4.5 Not Available [facility] ([facility]) [address], [place], [address], 02/23/2025 15:39:03 02/24/20 25 02/23/2025 COMP METAB OLIC PANEL alb/glob ratio 0.8 0.7-2 Not Available [facility] ([facility]) [address], [place], [address], 02/23/2025 15:39:03 02/24/20 25 02/23/2025 COMP METAB OLIC PANEL calcium 10.2 mg/dL 8.5-10 .5 Not Available [facility] ([facility]) [address], [place], [address], 02/23/2025 15:39:03 02/24/20 25 02/23/2025 COMP METAB OLIC PANEL bilirubin total 0.60 mg/dL 0.10-1 .00 Not Available [facility] ([facility]) [address] [place], [address], 02/23/2025 15:39:03 02/24/20 25 02/23/2025 COMP METAB OLIC PANEL AST (SGOT) 46 U/L 0-37 high Not Available [facility] ([facility]) [address], [place], [address], 02/23/2025 15:39:03 02/24/20 25 02/23/2025 COMP METAB OLIC PANEL ALT (SGPT) 78 U/L 0-65 high Not Available [facility] ([facility]) [address], [place], [address], 02/23/2025 15:39:03 02/24/20 25 02/23/2025 COMP METAB OLIC PANEL alk phosphatase 111 U/L 46-116 Not Available [facility] ([facility]) [address] [facility], [place], [address], 02/23/2025 15:39:03 02/24/20 25 02/23/2025 C-KARLI CTIVE PROTE IN (CRP) C-reactive protein, quant 2.0 mg/dL 0.05-0 .300 high Not Available [facility] ([facility]) [address] [facility], [place], [address], 02/23/2025 15:40:11 02/24/20 25 02/23/2025 SED RATE sed rate auto 9 0-20 Not Available [facility] ([facility]) [address] [facility], [place], [address], 02/23/2025 15:43:35 02/24/20 25 02/27/2025 URINE CULTU RE,CO MPREH ENSIV E urine culture,comp rehensive FINAL REPORT abnormal Not Available [facility] ([facility]) [address] [facility], [place], [address], 02/27/2025 19:09:52 02/24/20 25 02/27/2025 URINE CULTU [...] ng units per mL Not Available [facility] ([facility]) [address] [facility], [place], [address], 02/27/2025 19:09:52 02/24/2002/27/2025 URINE CULTU RE,CO MPREH [...] as Cefta rolin e Not Available [facility] ([facility]) [address] [facility], [place], [address], 02/27/2025 19:09:52 02/24/2002/27/2025 URINE CULTU RE,CO MPREH [...] Vanco mycin R S Not Available [facility] ([facility]) [address] [facility], [place], [address], 02/27/2025 19:09:52 02/24/20 25 02/23/2025 urina lysis , dipst ick Leukocytes (reference range) trace Not Available [place] [address], [place], [address], 02/23/2025 14:16:48 02/24/20 25 02/23/2025 urina lysis , dipst ick Nitrite (reference range:) negati ve Not Available [place] [address] [address] [facility] [address], [place], [address], 02/23/2025 14:16:48 02/24/20 25 02/23/2025 urina lysis , dipst ick Urobilinogen (reference range) 0.2 Not Available [place] [address] [address] [facility] [address], [place], [address], 02/23/2025 14:16:48 02/24/20 25 02/23/2025 urina lysis , dipst ick Protein (reference range) negati ve Not Available [place] [address] [address] [facility] [address], [place], [address], 02/23/2025 14:16:48 02/24/20 25 02/23/2025 urina lysis , dipst ick pH (reference range 5-8.5) 6.0 Not Available [place] [address] [address] [facility] [address], [place], [address], 02/23/2025 14:16:48 02/24/20 25 02/23/2025 urina lysis , dipst ick Blood (reference range:) small Not Available [place] [address] [address] [facility] [address], [place], [address], 02/23/2025 14:16:48 02/24/20 25 02/23/2025 urina lysis , dipst ick Specific [place] (reference range) 1.015 Not Available [place] [address] [address] [facility] [address], [place], [address], 02/23/2025 14:16:48 02/24/20 25 02/23/2025 urina lysis , dipst ick Ketone (reference range) negati ve Not Available [place] [address] [address] [facility] [address], [place], [address], 02/23/2025 14:16:48 02/24/20 25 02/23/2025 urina lysis , dipst ick Bilirubin (reference range) negati ve Not Available [place] [address] [address] [facility] [address], [place], [address], 02/23/2025 14:16:48 02/24/20 25 02/23/2025 urina lysis , dipst ick Glucose (reference range) 500 Not Available [place] [address] [address] [facility] [address], [place], [address], 02/23/2025 14:16:48 02/24/20 25 02/23/2025 urina lysis , dipst ick Color (reference range: yellow-brown ) Dark Yellow Not Available [place] [address] [address] [facility] [address], [place], [address], 02/23/2025 14:16:48 Result Notes None recorded. Problems Name Problem SNOMED Code Status Onset Date Resolution Date Notes Provider Name and Address Organization Details Recorded Time Syncope 132058541 Active 2021 Malina Hernandez DO [address], [place], [address] , [facility] [place] [facility] [place] 15:33:04 Hypersomnia 72502180 Active 2021 Malina Hernandez DO [address] [facility], [place], [address] , [place] - [facility] & [place] 15:34:08 Problem Notes None recorded. Procedures Surgical History Date Name Laterality Status Provider Name and Address Organization Details Recorded Time 09/25/20 23 Cystoscopy-Female completed Silvio Valdez MD [address] [facility], [place], [address], [place] [facility] [place] [facility] [place] 09/25/2023 15:26:11 04/04/20 22 Date of Last Pap Smear completed Vandana Eugenioa [place] - [facility] [place] [facility] [place] 10/03/2022 14:31:43 10/28/19 22 Cloth Cutting Inspector Surgery completed Vandana Dalla [place] - [facility] [place] [facility] [place] 10/03/2022 14:45:45 10/28/19 17 Cholecystectomy completed Vandana Dalla [place] - [facility] & [place] 10/03/2022 14:32:27 10/28/19 14 Other completed Vandana Dalla [place] - [facility] [place] [facility] [place] 10/03/2022 14:44:51 cardiac catheterization completed Vandana Dalla [place] - [facility] & [place] 10/03/2022 14:46:31 strabismus surgery completed Vandana Dalla [place] - [facility] [place] [facility] [place] 10/03/2022 14:55:15 Imaging Results None recorded. Procedure Notes None recorded. Medical Equipment None Reported. Allergies Allergen ID Allergen Name Allergen Category Reaction Reaction Severity Criticality Documentation Date Start Date Code Code System Note Provider Name and Address Organization Details Recorded Time 36620 aspirin medicatio n chest pain wheezing moderate severe Not available 10/02/2022 1191 RxNorm Vandana Eugenioa null, [place] - [facility] & [place] 09:22:42 67830 Bactrim medicatio n arthralgi a (joint pain) muscle cramps severe severe Not available 10/02/2022 22338 9 RxNorm Vandana Eugenioa null, [place] - [facility] & [place] 09:22:49 64567 insect venom environme nt confusion cough dizziness fever flushing headache wheezing moderate moderate moderate mild moderate moderate moderate Not available 10/02/2022 04510 UNK Vandana catherine, [facility] & [place] 2 09:23:13 75240 Pneumococ georges vaccine Not available anaphylax is chest pain facial swelling nausea rash wheezing moderate moderate moderate moderate moderate moderate Not available 10/02/2022 25691 7 RxNorm Vandana catherine, [facility] [place] [facility] & [place] 2 09:23:25 86764 rosuvasta tin medicatio n eye swelling facial swelling respirato ry distress moderate moderate moderate Not available 10/02/2022 69001 2 RxNorm Vandana catherine, [facility] & [place] 2 09:23:35 Medications Name [...] % 80 /min 98.6 [degF] 49.6 kg/m2 292614. 86 g 116 mm[Hg] 100 mm[Hg] Bianca Smith [place] - [facility] 5 13:59:18 Date Recorded Body height Heart rate Oxygen saturation Oxygen saturation in Arterial blood by Pulse oximetry Heart rate Body temperature Body mass index (BMI) Body weight Systolic blood pressure Diastolic blood pressure Provider Name and Address Organization Details Last Updated DateTime 5 160.02 cm 60 /min 97 % 97 % 60 /min 97.7 [degF] 49.6 kg/m2 648724. 86 g 119 mm[Hg] 79 mm[Hg] Bianca ELLER - [facility] 5 13:31:54 Date Recorded Body height Body temperature Oxygen saturation Oxygen saturation in Arterial blood by Pulse oximetry Inhaled oxygen flow rate Heart rate Body mass index (BMI) Body weight Systolic blood pressure Diastolic blood pressure Provider Name and Address Organization Details Last Updated DateTime 3 157.48 cm 97.1 [degF] 98 % 98 % 2 L/min 89 /min 48.3 kg/m2 280380. 39 g 128 mm[Hg] 98 mm[Hg] Phillip Morrison [facility] & [place] 3 13:04:48 Date Recorded Body height Body mass index (BMI) Body weight Systolic blood pressure Diastolic blood pressure Provider Name and Address Organization Details Last Updated DateTime 08/07/2023 157.48 cm 49.4 kg/m2 721675.9 4 g 125 mm[Hg] 75 mm[Hg] Britney Yee [facility] & [place] 3 15:05:24 Date Recorded Body height Body mass index (BMI) Body weight Systolic blood pressure Diastolic blood pressure Provider Name and Address Organization Details Last Updated DateTime 09/25/2023 157.48 cm 51.2 kg/m2 593210.8 6 g 126 mm[Hg] 76 mm[Hg] Ioana Ayala [facility] & [place] 3 15:07:04 Social History Question Answer Notes LastModified by Sponsifyat ion Details LastModified Time Tobacco Smoking Status Never Smoker [facility] [place] 10/03/2022 14:32:09 Do You Have An Advance Directive? No Information not available 10/03/2022 Are You Blind Or Do You Have Difficulty Seeing? No Information not available 10/03/2022 What Was The Date Of Your Most Recent Tobacco Screening? 09/17/2022 Information not available 10/03/2022 Do You Have Any Pets? Yes [email or web address] Information not available 09/25/2023 Are You Passively Exposed To Smoke? No Information not available 10/03/2022 Are You Currently In School? No [employer] [email or web address] Information not available 09/25/2023 Sex: Female Functional Status Question Answer Note LastModified by Organizat ion Details LastModified Time Do you use any illicit or recreational drugs? No Information not available 10/03/2022 What is your level of alcohol consumption? 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 Occasional Information not available 10/03/2022 Mental Status Question Answer Note LastModified by Organization D etails LastModified Time Do you feel stressed (tense, restless, nervous, or anxious, or unable to sleep at night)? [id number] Information not available 10/03/2022 Family History Relationship [...] SNOMED-CT Code Diagnosis ICD10 Code Diagnosis Note [id number] DO [facility] [address] [facility],[address] [place] [address] 10/03/2022 14:07:23 10/03/2022 15:38:25 Syncope 329714989 R55 She has been experienci ng these stereotypi georges passing out episodes for five years. No definite witnessed convulsion s but some associated brief confusion afterwards .will order EEG to rule out neurologic causes of syncope Hypersomnia 76504542 G47 .10 She describes some significan t episodes of pathologic al sleepiness . She will fall asleep without warning in the middle of talking. This is very infrequent but can be suggestive of narcolepsy . Will order PSG with MSLT to evaluate this in more detail. [id number] Micheline Lackey MD [facility] General Surgery [address] [place] [address],[address] [place] [address] 04/02/2023 12:53:55 04/02/2023 13:53:12 Pelvic mass 84364560 R19.00 Possible lymphocele versus ovarian remnant from [...] patient with lab levels and consider further ADOPTION AGENT follow up. [id number] Silvio Valdez MD [facility] Urology [address] [place] [address],[address] [place] [address] 08/07/2023 14:35:57 08/07/2023 15:40:17 Recurrent urinary tract infection 782796409 N39.0 Kidney stone 33595989 N2 0.0 Chronic th oracic back pain 3456627411 27967 M54.6 Microscopic hematuria 19 1304419 R31.29 [id number] Silvio Valdez MD [facility] Urology [address] [place] [address],[address] [place] [address] 09/25/2023 14:26:57 09/25/2023 15:25:02 Recurrent urinary tract infection 741214232 N39.0 Kidney stone 10690585 N2 0.0 Microscopic hematuria 19 4075545 R31.29 [id number] [facility]105 [address] [facility] [address] [place] [address] 02/23/2025 13:48:33 02/23/2025 14:17:11 Recurrent urinary tract infection 674444886 N39.0 Will check lab work. Will send urine off for a culture. Will see patient back in 1 week. 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 Patient will follow up in 2 weeks. Call the office if anything persists or worsens. 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 [facility] (POS II) [facility] [id number] [facility] 02/27/2025 1 [facility] (MEDICAID HMO) [facility] [id number] [facility] Notes Date Note Type Note Provider Name [...] time. Patient states she is seen her geriatric physician for this, was told it is possibly a lymphocele. Micheline Lackey MD [address] [facility], [place], [address], [facility] - [place] & [place] 04/18/2023 12:50:43 08/07/2023 text/html Location: Histor y [...] status post hysterectomy. Silvio Valdez MD [address] [facility], [place], [address], [facility] - [facility] - [place] & [place] 08/07/2023 15:35:17 09/25/2023 text/html Patient returns to [...] hysterectomy. Silvio Valdez MD [address], [place], [address], [facility] & [place] 09/25/2023 15:30:10 02/23/2025 text/html patient presents to [...] 2025. Marilou David APRN [address], [place], [address], [facility] & [place] 02/24/2025 10:59:38 03/02/2025 text/html patient presents to clinic for follow up. Urine culture results received. Patient denies any fever. She is scheduled to have surgery to remove her stone on . Marilou David APRN [address], [place], [address], [facility] - [facility] & [place] 03/02/2025 13:35:40 OBGyn Episode No OBEpisode recorded.
--- OUTSIDE RECORDS SUMMARY | 2025-04-06 12:30 | XMS_ITS | Encounter Summary ---
Author Organization [facility] Address [address] [place] [address] Care Team Providers Care Cloud Security Architect Name Role Phone Juarez Griffin MD Primary Care Provider [phone] Karen Naqvi DO Unavailable [phone] Encounter Details Date Type Department Care Team ([facility] st Contact Info) Description 03/12/2025 Orders Only External Location [address] [place] [id number] Provider, External Social History Tobacco Use Types [...] drink first t yue in the morning (EYE-SUPERVISOR MIRROR FABRICATION) to steady your nerves or to get [...] Comment:+ 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 Source: [facility] [place]. This patient will require contact precautions indefinitely. 04/01/2024 Assessment Noted Time A fall risk assessment has been complete d for the patient 10/05/2024 1:53 PM EST A Body Mass Index follow-up plan has been documented for the patient 04/12/2024 12:42 PM EDT documented as of this encounter Care Teams Cloud Security Architect Relationship Specialty Start Date End Date Juarez Griffin MD [address] [facility] [address] [place] [address] PCP - General 03/10/21 Karen Naqvi DO [address] [facility] [address] [place] [address] Referring Physician Obstetrics and Gynecology 09/23/24 documented as of this encounter
--- OUTSIDE RECORDS SUMMARY | 2025-04-06 12:30 | XMS_ITS | Referral Summary ---
Author Organization [employer] Address [address] [place] [address] Care Team Providers Care Ring Facer Name Role Phone Juarez Griffin MD Primary Care Provider [phone] Allergies Active Allergy Reactions Criticality Noted Date [...] place to sleep or slept in a chcf (including now)? No 12/27/2023 Utilities Answer Date [...] your living situation today? I have a [facility] place to live 12/27/2023 Think [...] Do you speak a language other than [facility]? No 12/27/2023 Do you want [...] on file Medical Devices Implanted Type Area Channel Sales Director Device Identifier Shelf Expiration Date Model / Serial / Lot Loop Recorder LOOP RECORDER Left: Chest Insurance [facility] Advance Directives For more information, please contact: [phone] * Full Code (Latest Code Status on File) Date Activated Date Inactivated Comments 12/27/2023 3:21 AM 12/30/2023 2:53 PM -Attempt Resus citation if person has no pulse and is not breathing. -If no pulse or not breathing attempt CPR/CODE. -Call Rapid Response if patient is in distress. Care Teams Ring Facer Relationship Specialty Start Date End Date Juarez Griffin MD [address] [place] [address] [place] [id number] PCP - General General Internal Medicine 12/30/23
--- OUTSIDE RECORDS SUMMARY | 2025-04-06 12:30 | XMS_ITS | Continuity of Care Document ---
Author Organization [facility] Infectious Disease -[address] Address [address] [place] [address] Care Team Providers Care Rn Chronic Name Role Phone ZAHRAA BENAVIDES Primary Care Provider [phone] Assessment No assessment recorded. Plan of Treatment [...] and Address Organization Details Recorded Time Syncope 017869750 Active 2021 Malina Hernandez DO [address], [place], [address] , [facility] & [place] 2 15:33:04 Hypersomnia 80472845 Active 2021 Malina Hernandez DO [address], [place], [address] [facility] & [place] 2 15:34:08 Problem Notes None recorded. Procedures Surgical History Date Name Laterality Status Provider Name and Address Organization Details Recorded Time 09/25/20 23 Cystoscopy-Female completed Silvio Valdez MD [address] , [place], [address], [facility] & [place] 09/25/2023 15:26:11 04/04/20 22 Date of Last Pap Smear completed Vandana Harris [facility] & [place] 10/03/2022 14:31:43 10/28/19 22 Trimmer Machine Operator Surgery completed Vandana ELLER - [facility] - [place] & [place] 10/03/2022 14:45:45 10/28/19 17 Cholecystectomy completed Vandana ELLER - [facility] & [place] 10/03/2022 14:32:27 10/28/19 14 Other completed Vandana ELLER - [facility] & [place] 10/03/2022 14:44:51 cardiac catheterization completed Vandana ELLER - [facility] & [place] 10/03/2022 14:46:31 strabismus surgery completed Vandana ELLER - [facility] & [place] 10/03/2022 14:55:15 Imaging Results None recorded. Procedure Notes None recorded. Medical Equipment None Reported. Allergies Allergen ID Allergen Name Allergen Category Reaction Reaction Severity Criticality Documentation Date Start Date Code Code System Note Provider Name and Address Organization Details Recorded Time 05950 aspirin medicatio n chest pain wheezing moderate severe Not available 10/02/2022 1191 RxNorm Vandana catherine, [place] - [facility] & [place] 09:22:42 65803 Bactrim medicatio n arthralgi a (joint pain) muscle cramps severe severe Not available 10/02/2022 79768 9 RxNorm Vandana catherine, [place] - [facility] & [place] 09:22:49 01190 insect venom environme nt confusion cough dizziness fever flushing headache wheezing moderate moderate moderate mild moderate moderate moderate Not available 10/02/2022 96126 UNK Vandana catherine, [place] - [facility] & [place] 09:23:13 65484 Pneumococ georges vaccine Not available anaphylax is chest pain facial swelling nausea rash wheezing moderate moderate moderate moderate moderate moderate Not available 10/02/2022 02978 7 RxNorm Vandana Steven null, [place] - [facility] & [place] 09:23:25 01928 rosuvasta tin medicatio n eye swelling facial swelling respirato ry distress moderate moderate moderate Not available 10/02/2022 80394 2 RxNorm [place] Reed - [facility] - [...] % 60 /min 97.7 [degF] 49.6 kg/m2 125336. 86 g 119 mm[Hg] 79 mm[Hg] Bianca Smith [facility] & [place] 13:31:54 Social History Question Answer Notes LastModified by Organizat ion Details LastModified Time Tobacco Smoking Status [facility] [place] 10/03/2022 14:32:09 Do You Have An Advance Directive? No Information not available 10/03/2022 Are You Blind Or Do You Have Difficulty Seeing? No Information not available 10/03/2022 What Was The Date Of Your Most Recent Tobacco Screening? 09/17/2022 Information not available 10/03/2022 Do You Have Any Pets? Yes [email or web address] Information not available 09/25/2023 Are You Passively Exposed To Smoke? No Information not available 10/03/2022 Are You Currently In School? No [employer] [email or web address] Information not available 09/25/2023 Sex: Female Functional Status Question Answer Note LastModified by Organizat ion Details LastModified Time Do you use any illicit or recreational drugs? No Information not available 10/03/2022 What is your level of alcohol consumption? 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 Occasional Information not available 10/03/2022 Mental Status Question Answer Note LastModified by Organization D etails LastModified Time Do you feel stressed (tense, restless, nervous, or anxious, or unable to sleep at night)? [id number] Information not available 10/03/2022 Family History Relationship [...] SNOMED-CT Code Diagnosis ICD10 Code Diagnosis Note [id number] [facility] [address] 02/23/2025 13:48:33 02/23/2025 14:17:11 Recurrent urinary tract infection 532744186 N39.0 Will check lab work. Will send urine off for a culture. Will see patient back in 1 week. 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 Patient will follow up in 2 weeks. Call the office if anything persists or worsens. 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 Urine culture results received. Patient denies any fever. She is scheduled to have surgery to remove her stone on . Marilou David, BINDER C[employer]TER [address], [place], [address], [place] - [facility] - [place] & [place] 03/02/2025 13:35:40 OBGyn Episode No OBEpisode recorded.
--- OUTSIDE RECORDS SUMMARY | 2025-04-06 12:30 | XMS_ITS | Data Portability ---
Author Organization [facility] Mahamed morgan, [employer] [place] [employer] Address [address] [facility] [address] [place] [address] Assessment No assessment recorded. Plan of Treatment Reminders Order Date Submit Date Provider Last Modified By Organization Details Last Modified Time Details Appointments None recorded. Lab None recorded. Referral aquatic therapy referral 2017 018 2 Not available 8 11:14:18 cognitive behavioral therapy referral 2017 018 [email or web address] 2 [facility], [address] [facility], [address], [place], [address], 8 11:14:19 occupationa l therapist referral 2017 018 [email or web address] 2 Not available 8 11:14:17 Procedures None recorded. Surgeries None recorded. Imaging None recorded. Medication Orders None recorded. Patient TargetsNo targets recorded. Patient Instructions Encounter Date Encounter Id Patient Instructions Last Modified By Organization Details Last Modified Time 08/13/2018 [id number] learning about healthy weight Not available 08/13/2018 [...] Name and Address Organization Details Recorded Time 388703 aspirin medicatio n Not available Not available Not available 08/13/2018 1191 RxNorm Melinda Hudson [facility] 8 10:01:54 Medications Name [...] Address Organization Details Last Updated DateTime 8 409171. 12 g 48.2 kg/m2 160.02 cm 18 /min 61 /min 132 mm[Hg] 96 mm[Hg] Melinda Hudson [facility] 8 10:06:40 Social History Question Answer Notes LastModified by Organizat ion Details LastModified Time Tobacco Smoking Status Never Smoker Melinda Hudson [facility] 08/13/2018 10:02:03 What Was The Date Of Your Most Recent Tobacco Screening? 08/13/2018 Information n ot available 12/15/2019 Sex: Unknown Functional Status None recorded. Mental Status None recorded. Family History Relationship Description Onset Age of this Age Resolved Age Notes LastModified by Organization Details LastModified Time Father No current problems or disability [email or web address] Not available 08/13 10:02:01 Mother No current problems or disability [email or web address] Not available 08/13 10:02:01 Medical History Condition [...] SNOMED-CT Code Diagnosis ICD10 Code Diagnosis Note [id number] CLIFF BARBER MD RHEUMATOL OGY [address] [place] [address] 08/13/2018 09:13:44 08/13/2018 10:48:47 Pain of multiple joints 12081692 M25.50 she has clinical features of Dixon OA. no features of an inflammato ry arthritis noted. no features of rheumatoid noted. 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 would suggest to avoid steroids and start OT as stated below. she can RTC with me as prn. Fibromyalgia 137312008 M 79.7 she has clinical features suggestive [...] OT to help with the ROM and scaler packer. 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 Health Concerns Section Related Observation LastModified by Organization Detai ls LastModified Time None Recorded Concern Status LastModified by Organization Details LastModified Time None Recorded Advance Directives Directive None Recorded Payers Insurance Date Sequence Insurance Name Policy Number Policy Valdivia Covered Member ID Valdivia Member ID Guarantor Name 02/03/2024 1 [facility] [id number] [facility] 01/24/2024 1 [place]FS/TRADITIO NAL Lissy [place] [id number] Lissy [facility] 02/04/2024 1 [facility] [id number] [facility] 01/31/2024 [address] [facility] (PPO) [id number] Lissy [facility] [id number] 01 Lissy [facility] Notes Date Note Type Note [...] and a normal TSH. CLIFF BARBER MD [facility] [place], [address], [facility] 08/13/2018 17:00:47 OBGyn Episode No OBEpisode recorded.
[2025-04-06] MEDS: ERTAPENEM SODIUM 1 GM in 0.9 % SODIUM CHLORIDE 50 ML IV (12:46)
[2025-04-06] MEDS: SODIUM CHLORIDE 0.9% 10ML FLUSH SYRINGE 10 ML IV (12:46)
[2025-04-06] MEDS: SODIUM CHLORIDE 0.9% 50ML BAG 50 ML IV (12:46)
[2025-04-06 13:20] VITALS: BP 113/52; PULSE 65; RESP 16; TEMP 36.7; O2SAT 97
[2025-04-06 14:24] VITALS: BP 111/49; PULSE 60; RESP 14; TEMP 36.7; O2SAT 97
== END 2025-04-06 13:20 | disposition home or self-care (01) ==
LOC: INF 12:28
PROVIDERS: PCP Internal Medicine; Visit Provider Urology
DX: N39.0 Urinary tract infection, site not specified (principal); B96.4 Proteus (mirabilis) (morganii) as the cause of diseases classified elsewhere; Z16.24 Resistance to multiple antibiotics
CPT/HCPCS: 96365; J1335

== ENCOUNTER 2025-04-09 13:45 | Outpatient (CLI) | payer OTHER, SELFPAY ==
--- OUTSIDE RECORDS SUMMARY | 2025-04-09 13:47 | XMS_ITS | Data Portability ---
Author Organization [facility] Mahamed morgan, [employer] Address [address] [facility] [address] [place] [address] Assessment No assessment recorded. Plan of Treatment Reminders Order Date Submit Date Provider Last Modified By Organization Details Last Modified Time Details Appointments None recorded. Lab None recorded. Referral aquatic therapy referral 2017 018 [email or web address] 2 Not available 8 11:14:18 cognitive behavioral therapy referral 2017 018 2 [facility], [address] [facility], [address], [place], [address], 8 11:14:19 occupationa l therapist referral 2017 018 [email or web address] 2 Not available 8 11:14:17 Procedures None recorded. Surgeries None recorded. Imaging None recorded. Medication Orders None recorded. Patient TargetsNo targets recorded. Patient Instructions Encounter Date Encounter Id Patient Instructions Last Modified By Organization Details Last Modified Time 08/13/2018 [id number] learning about healthy weight Not available 08/13/2018 [...] Name and Address Organization Details Recorded Time 228827 aspirin medicatio n Not available Not available Not available 08/13/2018 1191 RxNorm Melinda Hudson [facility] 8 10:01:54 Medications Name Sig [...] Address Organization Details Last Updated DateTime 8 935638. 12 g 48.2 kg/m2 160.02 cm 18 /min 61 /min 132 mm[Hg] 96 mm[Hg] Melinda Hudson [facility] 8 10:06:40 Social History Question Answer Notes LastModified by Organizat ion Details LastModified Time Tobacco Smoking Status Never Smoker Melinda Hudson [facility] 08/13/2018 10:02:03 What Was The Date Of Your Most Recent Tobacco Screening? 08/13/2018 Information n ot available 12/15/2019 Sex: Unknown Functional Status None recorded. Mental Status None recorded. Family History Relationship Description Onset Age of this Age Resolved Age Notes LastModified by Organization Details LastModified Time Father No current problems or disability [email or web address] Not available 08/13 10:02:01 Mother No current problems or disability [email or web address] Not available 08/13 10:02:01 Medical History Condition [...] SNOMED-CT Code Diagnosis ICD10 Code Diagnosis Note [id number] CLIFF BARBER MD RHEUMATOL OGY [address] [place] [address] 08/13/2018 09:13:44 08/13/2018 10:48:47 Pain of multiple joints 15401500 M25.50 she has clinical features of Dixon OA. no features of an inflammato ry arthritis noted. no features of rheumatoid noted. 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 would suggest to avoid steroids and start OT as stated below. she can RTC with me as prn. Fibromyalgia 400783800 M 77.7 she has clinical features suggestive [...] OT to help with the ROM and mat puncher. 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 Health Concerns Section Related Observation LastModified by Organization Detai ls LastModified Time None Recorded Concern Status LastModified by Organization Details LastModified Time None Recorded Advance Directives Directive None Recorded Payers Insurance Date Sequence Insurance Name Policy Number Policy Valdivia Covered Member ID Valdivia Member ID Guarantor Name 02/03/2024 1 [facility] [id number] 01/24/2024 1 [place]/TRADITIO NAL Lissy [place] [id number] Lissy [facility] 02/04/2024 1 [facility] [id number] [facility] 01/31/2024 1 [facility]PP[facility] [id number] Lissy [facility] [id number] Lissy [facility] Notes Date Note Type Note Provider [...] and a normal TSH. CLIFF BARBER MD [facility] [place], [address], [facility] 08/13/2018 17:00:47 OBGyn Episode No OBEpisode recorded.
--- OUTSIDE RECORDS SUMMARY | 2025-04-09 13:47 | XMS_ITS | Clinical Summary ---
Author Organization [facility] Address [address] [facility] [address] [place] [address] Phone Care Team Providers Care Civilian Technician Name Role Phone Zofia Perkins Unavailable Unavailable Conditions or Problems Problem Name Problem Code Onset Date Status Entry Date Provider Comment Standard Description Annotate Acute Pyelonephritis 52172085 (SNOMED CT) 01/07 Active 01/07 Malina Ames Acute pyelonephritis Obstructive uropathy with infection N13.6 (ICD-10-C M) 01/07 Active 01/07 Malina Ames Pyonephrosis Neutrophilic leukemoid reaction D72.823 (ICD-10-C M) 01/07 Active 01/07 Malina Ames Leukemoid reaction COPD 52621501 (SNOMED CT) 01/07 Active 01/07 Malina Ames Chronic obstructive pulmonary disease Morbid obesity due to excess calories E66.01 (ICD-10-C M) 01/07 Active 01/07 Malina Ames Morbid (severe) obesity due to excess calories DM Type II E11.9 (ICD-10-C M) 01/07 Active 01/07 Malina Ames Type 2 diabetes mellitus without complications Benign hypertensive heart disease with chronic diastolic heart failure (I50.32) 73891711 (SNOMED CT) 01/07 Active 01/07 Malina Ames Benign hypertension Medications Medication Instructions Start Date Stop Date Generic Name [facility] Provider FOSFOMYCIN TROMETHAMINE 3 GM PACK Take 1 packet by mouth as directed take 1 packet every 3-4 days (2 times weekly) fosfomycin tromethamine 47800024552 Calvin Villarreal MD PREDNISONE 20 MG TABS prednisone 93668469660 Milly Jabierbrianne VITAMIN C 500 MG CAPS twice a day ascorbic acid (vitamin c) 21400403014 Milly Mosquera HIPREX 1 GM TABS Take 1 tablet by mouth twice a day 02/18 methenamine hippurate 96546801703 Calvin Villarreal MD INDOMETHACIN 50 MG CAPS Take 1 capsule by mouth three times a day indomethacin 14517573223 Linda De Leon SUCRALFATE 1 GM TABS Take 1 tablet by mouth four times a day sucralfate 51456495623 Linda De Leon BUMETANIDE 2 MG TABS Take 1 tablet by mouth twice a day bumetanide 86025927224 Linda De Leon PRAVASTATIN SODIUM 10 MG TABS Take 1 tablet by mouth every night pravastatin 90704420313 Linda De Leon ENTRESTO 24-26 MG TABS Take 1 tablet by mouth twice a day sacubitril-valsa rtan 71669179502 Linda De Leon VENTOLIN HFA 108 (90 Base) MCG/ACT AERS Inhale 2 puff by mouth every four to six hours as needed albuterol sulfate 60157754900 Linda De Leon ADVAIR DISKUS 250-50 MCG/ACT AEPB Inhale 1 puff twice a day fluticasone propion-salmeter ol 53322268179 Linda De Leon OMEPRAZOLE 20 MG CPDR Take 1 capsule by mouth once a day omeprazole 05846277609 Linda De Leon METFORMIN HCL 500 MG TABS Take 1 tablet by mouth twice a day metformin 10965407168 Linda De Leon FARXIGA 10 MG TABS Take 10 mg by mouth once a day dapagliflozin propanediol 99777849152 Linda De Leon IBUPROFEN (IBUPROFEN) 800 MG TABS Take 1 tablet by mouth every six hours as needed IBUPROFEN Linda De Leon TIZANIDINE HCL 4 MG TABS Take 1 tablet by mouth as needed tizanidine 03124274312 Linda De Leon TRAMADOL HCL 50 MG TABS every twelve hours tramadol 80440155365 Linda De Leon NITROGLYCERIN 0.[address] 1 tablet under tongue as needed nitroglycerin 73778770492 Linda Moises ONDANSETRON HCL 4 MG TABS Take 1 tablet by mouth every eight hours as needed ondansetron hcl 30292551947 Linda Moises SPIRONOLACTONE 50 MG TABS Take 1 tablet by mouth once a day spironolactone 09889129563 Linda De Leon SITagliptin (JANUVIA) 25 MG tablet Take 1 tablet by mouth once a day JANOLIVER De Leon NEBIVOLOL HCL 5 MG TABS Take 1 tablet by mouth once a day nebivolol 13572915432 Jazieltyree De Leon GLYXAMBI 10-5 MG TABS Take 1 tablet by mouth once a day empagliflozin-li nagliptin 42560590078 Linda De Leon VENTOLIN HFA 108 (90 Base) MCG/ACT AERS INHALE TWO PUFFS BY MOUTH EVERY 4 TO 6 HOURS NEEDED 01/19 albuterol sulfate 68748944630 QIE qieuser TRAMADOL HCL 50 MG TABS Every 12 (Twelve) Hours. 01/19 tramadol 66821175009 QIE qieuser TIZANIDINE HCL 4 MG TABS Take 1 tablet by mouth As Needed. 01/19 tizanidine 33034181322 QIE qieuser SUCRALFATE 1 GM TABS Take 1 tablet by mouth 4 (Four) Times a Day. 01/19 sucralfate 83346845963 QIE qieuser SPIRONOLACTONE 50 MG TABS TAKE ONE TABLET BY MOUTH EVERY DAY 01/19 spironolactone 03783668874 QIE qieuser SITagliptin (JANUVIA) 25 MG tablet Take 1 tablet by mouth Daily. 01/19 JANUVIA QIE qieuser PRAVASTATIN SODIUM 10 MG TABS TAKE ONE TABLET BY MOUTH EVERY DAY AT BEDTIME 01/19 pravastatin 90447881649 QIE qieuser ONDANSETRON HCL 4 MG TABS Take 1 tablet by mouth Every 8 (Eight) Hours As Needed. 11/10 ondansetron hcl 55168542375 QIE qieuser OMEPRAZOLE 20 MG CPDR TAKE ONE CAPSULE BY MOUTH EVERY DAY 01/19 omeprazole 82843937821 QIE qieuser O2 (OXYGEN) 2 L by Alternating Nares route Every Night. OXYGEN QIE qieuser NITROGLYCERIN 0.[address] 1 tablet under the tongue As Needed for Chest Pain. 01/19 nitroglycerin 59890044058 QIE qieuser NEBIVOLOL HCL 5 MG TABS TAKE ONE TABLET BY MOUTH EVERY DAY 01/19 nebivolol 63727750922 QIE qieuser METFORMIN HCL 500 MG TABS Take 1 tablet by mouth 2 (Two) Times a Day. 01/19 metformin 16201190814 QIE qieuser IPRATROPIUM-ALBUT MIK 0.5-2.5 (3) MG/3ML SOLN ipratropium-albu terol 15469314151 QIE qieuser INDOMETHACIN 50 MG CAPS Take 1 capsule by mouth 3 (Three) Times a Day With Meals. 01/19 indomethacin 88253816265 QIE qieuser IBUPROFEN (IBUPROFEN) 800 MG TABS Take 1 tablet by mouth Every 6 (Six) Hours As Needed. 01/19 IBUPROFEN QIE qieuser ENTRESTO 24-26 MG TABS TAKE ONE TABLET BY MOUTH TWICE DAILY 01/19 sacubitril-valsa rtan 01837514353 QIE qieuser GLYXAMBI 10-5 MG TABS Take 1 tablet by mouth Daily. 01/19 empagliflozin-li nagliptin 53048033024 QIE qieuser FARXIGA 10 MG TABS Take 10 mg by mouth Daily. 01/19 dapagliflozin propanediol 62008015076 QIE qieuser BUMETANIDE 2 MG TABS TAKE ONE TABLET BY MOUTH TWICE DAILY 01/19 bumetanide 88848515278 QIE qieuser ADVAIR DISKUS 250-50 MCG/ACT AEPB Inhale 1 puff 2 (Two) Times a Day. 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
--- OUTSIDE RECORDS SUMMARY | 2025-04-09 13:47 | XMS_ITS | Encounter Summary ---
Author Organization [facility] Address [address] [place] [address] Care Team Providers Care Animal Care Attendant Name Role Phone Juarez Griffin MD Primary Care Provider [phone] Karen Naqvi DO Unavailable [phone] Encounter Details Date Type Department Care Team ([facility] st Contact Info) Description 03/12/2025 Orders Only External Location [address] [place] [id number] Provider, External Social History Tobacco Use Types [...] drink first t yue in the morning (EYE-GEOGRAPHY DEPARTMENT CHAIR) to steady your nerves or to get [...] Comment:+ 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 Source: [facility]. This patient will require contact precautions indefinitely. 04/01/2024 Assessment Noted Time A fall risk assessment has been complete d for the patient 10/05/2024 1:53 PM EST A Body Mass Index follow-up plan has been documented for the patient 04/12/2024 12:42 PM EDT documented as of this encounter Care Teams Animal Care Attendant Relationship Specialty Start Date End Date Juarez Griffin MD [address] [facility] [address] [place] [address] PCP - General 03/10/21 Karen Naqvi DO [address] [facility] [address] [place] [address] Referring Physician Obstetrics and Gynecology 09/23/24 documented as of this encounter
--- OUTSIDE RECORDS SUMMARY | 2025-04-09 13:47 | XMS_ITS | Encounter Summary ---
Author Organization [facility] Address [address] [place] [address] Care Team Providers Care Annual Campaign Manager Name Role Phone Juarez Griffin MD Primary Care Provider [phone] Karen Naqvi DO Unavailable [phone] Encounter Details Date Type Department Care Team ([facility] st Contact Info) Description 02/12/2024 Orders Only External Location [address] [place] [address] Gennaro Cuevas MD [facility] [address] [place] [address] Social History Tobacco Use Types Packs/Day Years [...] Comment:+ 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 Source: [facility]. This patient will require contact precautions indefinitely. 04/01/2024 documented as of this encounter Care Teams Annual Campaign Manager Relationship Specialty Start Date End Date Juarez Griffin MD [address] [place] [address] PCP - General 03/10/21 Karen Naqvi DO [facility] [address] [place] [address] Referring Physician Obstetrics and Gynecology 09/23/24 documented as of this encounter
--- OUTSIDE RECORDS SUMMARY | 2025-04-09 13:48 | XMS_ITS | Continuity of Care Document ---
Author Organization [facility] Address [address] [place] [address] Care Team Providers Care Consumer Services Advisor Name Role Phone ZAHRAA BENAVIDES Primary Care [...] and Address Organization Details Recorded Time Syncope 339735321 Active 2021 Malina Hernandez DO [address], [place], [address] , [facility] & [place] 2 15:33:04 Hypersomnia 98252143 Active 2021 Malina Hernandez DO [address], [place], [address] [facility] & [place] 2 15:34:08 Problem Notes None recorded. Procedures Surgical History Date Name Laterality Status Provider Name and Address Organization Details Recorded Time 09/25/20 23 Cystoscopy-Female completed Silvio Valdez MD [address] , [place], [address], [facility] & [place] 09/25/2023 15:26:11 04/04/20 22 Date of Last Pap Smear completed Vandana Harris [facility] & [place] 10/03/2022 14:31:43 10/28/19 22 Food And Beverage Lead Surgery completed Vandana ELLER - [facility] - [place] & [place] 10/03/2022 14:45:45 10/28/19 17 Cholecystectomy completed Vandana ELLER - [facility] & [place] 10/03/2022 14:32:27 10/28/19 14 Other completed Vandana ELLER - [facility] & [place] 10/03/2022 14:44:51 cardiac catheterization completed Vandana ELLER - [facility] & [place] 10/03/2022 14:46:31 strabismus surgery completed Vandana ELLER - [facility] & [place] 10/03/2022 14:55:15 Imaging Results None recorded. Procedure Notes None recorded. Medical Equipment None Reported. Allergies Allergen ID Allergen Name Allergen Category Reaction Reaction Severity Criticality Documentation Date Start Date Code Code System Note Provider Name and Address Organization Details Recorded Time 75336 aspirin medicatio n chest pain wheezing moderate severe Not available 10/02/2022 1191 RxNorm Vandana catherine, [place] - [facility] & [place] 09:22:42 01464 Bactrim medicatio n arthralgi a (joint pain) muscle cramps severe severe Not available 10/02/2022 98894 9 RxNorm Vandana catherine, [place] - [facility] & [place] 09:22:49 58616 insect venom environme nt confusion cough dizziness fever flushing headache wheezing moderate moderate moderate mild moderate moderate moderate Not available 10/02/2022 00257 UNK Vandana catherine, [place] - [facility] & [place] 09:23:13 15238 Pneumococ georges vaccine Not available anaphylax is chest pain facial swelling nausea rash wheezing moderate moderate moderate moderate moderate moderate Not available 10/02/2022 25198 7 RxNorm Vandana Steven null, [place] - [facility] & [place] 09:23:25 84519 rosuvasta tin medicatio n eye swelling facial swelling respirato ry distress moderate moderate moderate Not available 10/02/2022 67826 2 RxNorm [place] Reed - [facility] - [place] & [place] 2 09:23:35 Medications Name Sig [...] % 60 /min 97.7 [degF] 49.6 kg/m2 153692. 86 g 119 mm[Hg] 79 mm[Hg] Bianca Smith [facility] & [place] 13:31:54 Social History Question Answer Notes LastModified by Organizat ion Details LastModified Time Tobacco Smoking Status [facility] [place] 10/03/2022 14:32:09 Do You Have An Advance Directive? No Information not available 10/03/2022 Are You Blind Or Do You Have Difficulty Seeing? No Information not available 10/03/2022 What Was The Date Of Your Most Recent Tobacco Screening? 09/17/2022 Information not available 10/03/2022 Do You Have Any Pets? Yes [email or web address] Information not available 09/25/2023 Are You Passively Exposed To Smoke? No Information not available 10/03/2022 Are You Currently In School? No [employer] [email or web address] Information not available 09/25/2023 Sex: Female Functional Status Question Answer Note LastModified by Organizat ion Details LastModified Time Do you use any illicit or recreational drugs? No Information not available 10/03/2022 What is your level of alcohol consumption? 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 Occasional Information not available 10/03/2022 Mental Status Question Answer Note LastModified by Organization D etails LastModified Time Do you feel stressed (tense, restless, nervous, or anxious, or unable to sleep at night)? [id number] Information not available 10/03/2022 Family History Relationship [...] SNOMED-CT Code Diagnosis ICD10 Code Diagnosis Note [id number] [facility] [address] 02/23/2025 13:48:33 02/23/2025 14:17:11 Recurrent urinary tract infection 491965911 N39.0 Will check lab work. Will send urine off for a culture. Will see patient back in 1 week. 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 Patient will follow up in 2 weeks. Call the office if anything persists or worsens. 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 Urine culture results received. Patient denies any fever. She is scheduled to have surgery to remove her stone on . Marilou David, RETAIL EQUIPMENT ASSOCIATE [address], [place], [address], [place] - [facility] - [place] & [place] 03/02/2025 13:35:40 OBGyn Episode No OBEpisode recorded.
--- OUTSIDE RECORDS SUMMARY | 2025-04-09 13:48 | XMS_ITS | Clinical Summary ---
Author Organization [facility] Address [address] [place] [address] Care Team Providers Care Furniture Finisher Name Role Phone Juarez Griffin MD Primary Care Provider Allergies Active Allergy Reactions Criticality Noted Date [...] place to sleep or slept in a custodial (including now)? No 12/27/2023 Utilities Answer Date [...] your living situation today? I have a [facility] to live 12/27/2023 Think about the [...] Do you speak a language other than [place] at [facility]? No 12/27/2023 Do you want help [...] Completed 10/30/2023, Medical Devices Implanted Type Area Business Systems Advisor Device Identifier Shelf Expiration Date Model / Serial / Lot Loop Recorder LOOP RECORDER Left: Chest Insurance AETNA [facility] [place] Advance Directives For more information, please contact: [phone] * Full Code (Latest Code Status on File) Date Activated Date Inactivated Comments 12/27/2023 3:21 AM 12/30/2023 2:53 PM -Attempt Resus citation if person has no pulse and is not breathing. -If no pulse or not breathing attempt CPR/CODE. -Call Rapid Response if patient is in distress. Care Teams Furniture Finisher Relationship Specialty Start Date End Date Juarez Griffin MD [address] [place] [address] [place] [address] PCP - General General Internal Medicine 12/30/23
--- OUTSIDE RECORDS SUMMARY | 2025-04-09 13:48 | XMS_ITS | Clinical Summary ---
Author Organization [facility] Address [address] [place] [address] Care Team Providers Care Multifold Operator Name Role Phone Juarez Griffin MD Primary Care Provider [phone] Karen Naqvi DO Unavailable [phone] Allergies Active Allergy Reactions Criticality Noted Date [...] Team Description 03/12/2025 Orders Only External Location [address] [place] [address] Provider, External from Last 3 Months Immunizations [...] Marta Heart disease Sister Marta Hypertension Sister Matra Relation Name Status Comments Father Wallace Mother [...] drink first t yue in the morning (EYE-MUSIC DEPARTMENT CHAIR) to steady your nerves or [...] PPSV23) 11/01/2021 09/06/2021 [facility]-Breast Cancer Screening 2023 [id number] Vaccine ( - season) 2024 10/07/2022, 08/21/2021 [...] this topic Medical Devices Implanted Type Area Cataloging Assistant Device Identifier Shelf Expiration Date Model / Serial / Lot Stent Ureteral Double Pigtail Pos 6fr 24cm - [id number] - [id number] Implanted:Qty: 1 on 04/11/2024 by Harvey Macdonald MD at [facility] Stent Right: [id number] 01/02/2026 [id number] / [id number] / [id number] Loop Recorder-2016 Implanted:04/28 (Quantity not on file) Chest Qapa [id number] / / Procedures Procedure Name Priority [...] Reactive Non Reactive 04/10/2024 7:25 PM EDT [facility] Comment:Screening for HIV 1 & 2 antibodies, and P24 antigen is NONREACTIVE. No confirmatory testing is required. Blood Venous blood specimen / Unknown Venipuncture / Unknown 04/10/2024 6:11 PM EDT 04/10/2024 6:27 PM EDT us Susan Mcclure MD LAB BLOOD ORDERABLES Final Re sult Performing Organization Address [facility] Co de Phone Number [facility] [address] [place] [address] * Hepatitis C Antibody - ED (04/10/2024 6:11 PM EDT) Hepatitis C Antibody Negative Negative 04/10/2024 7:24 PM EDT [facility] Blood Venous blood specimen / Unknown Venipuncture / Unknown 04/10/2024 6:11 PM EDT 04/10/2024 6:26 PM EDT us Susan Mcclure MD LAB BLOOD ORDERABLES Final Re sult Performing Organization Address [facility] de Phone Number [facility] [address] [place] [address] * (ABNORMAL) Hemoglobin A1c (04/10/2024 6:11 PM EDT) Pathologist [facility] Hemoglobin A1c 6.3(H) <5.7 % 04/10/2024 9:31 [...] Adults <6.0% Children and Adolescents <7.5% Source: [place] [employer]. Standards of medical care in diabetes,2017. Diabetes Care.2017:40 (suppl 1):S1-S135. HbA1c assay performed by an ion-exchange chromatography method that is certified traceable to the [facility]. us Joselito Berrios MD LAB BLOOD ORDERABLES Final Re sult [facility] [address] [place] [address] from Last 3 Months or Most Recently Relevant to Health Maintenance Additional Health Concerns Infection Onset Date Last Indicated ESBL Comment:+ 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 Source: [facility]. This patient will require contact precautions indefinitely. 04/01/2024 Insurance [employer]ICA[employer] Advance Directives * Full Code (Latest Code Status on File) Date Activated Date Inactivated Comments 04/11/2024 10:12 AM 04/12/2024 3:22 PM Question Answer Comments Patient has decision-making capacity? Yes Care Teams Multifold Operator Relationship Specialty Start Date End Date Juarez Griffin MD [address] [facility] [address] [place] [address] PCP - General 03/10/21 Karen Naqvi DO [address] [facility] [address] [place] [address] Referring Physician Obstetrics and Gynecology 09/23/24
--- OUTSIDE RECORDS SUMMARY | 2025-04-09 13:48 | XMS_ITS | Data Portability ---
Author Organization [facility] [place] & [place] Alejandro ADMIN Address [address] [place] [id number] Care Team Providers Care Manager Actuarial Name Role Phone ZAHRAA BENAVIDES Primary Care Provider [phone] Assessment Encounter Date Assessment Date Assessment LastModified by Organization Details LastModified Time 08/07/2023 08/07/[address] scan images onto our system. Will review to determine the degree of stone burden bilaterally in the kidneys. Will also plan cystoscopy and pelvic exam in the office in the near future. [email or web address] Not available 08/07/2023 15:34:46 09/25/2023 09/25/2023 I [...] in 6 months with KUB and UA. [email or web address] Not available 09/25/2023 15:29:09 Plan of Treatment Reminders Order Date Submit Date Provider Last Modified By Organization Details Last Modified Time Details Appointments None recorded. Lab urinalysis, dipstick 2024 025 [email or web address] [facility] -105, [address], [place], [address], 5 14:18:52 CBC w/ diff 2024 025 [facility] (Registration ), [address], [place], [address], 5 16:11:55 CMP, serum or plasma 2024 025 [facility] (Registration ), [address], [place], [address], 5 15:39:03 ESR (erythrocyt e sedimentati on rate), blood [address] (Registration ), [address] [facility], [place], [address], 5 08:54:47 C-reactive protein, quantitativ e, serum or plasma [address] (Registration ), [address], [place], [address], 5 08:54:48 culture, urine 2024 025 [facility], [address], [address], [place], [address], 5 19:09:52 urinalysis, dipstick 2022 023 [email or web address] [facility], [address], [address], [place], [address], 3 16:08:29 Referral None recorded. Procedures None [...] usal 7.7 - 58.5 Perfo rmed at: [facility] n [address] [place] [address]69 Lab Direc tor: Los carson PhD, Phone : [phone] Not Available [facility] ([facility]) [address] [facility], [place], [address], 04/03/2023 10:13:10 04/02/20 23 04/03/2023 FSH FSH, serum 5.4 mIU/m L Adult Femal e: Folli cular phase 3.5 - 12.5 Ovula tion phase 4.7 - 21.5 Lutea l phase 1.7 - 7.7 Postm enopa usal 25.8 - 134.8 Perfo rmed at: [facility] [address] [place] [address] Lab Direc tor: Los carson PhD, Phone : [phone] Not Available [facility] ([facility]) [address] [facility], [place], [address], 04/03/2023 10:14:16 08/07/20 23 08/07/2023 urina lysis , dipst ick Leukocytes (reference range) trace Not Available [facility] [address] [place] [address], [address], 08/07/2023 15:15:15 08/07/2008/07/2023 urina lysis , dipst ick Nitrite (reference range:) negati ve Not Available [facility] [address], [place], [address], 08/07/2023 15:15:15 08/07/20 23 08/07/2023 urina lysis , dipst ick Urobilinogen (reference range) 0.2 Not Available [facility] [address] [place] [address] [address], [place], [address], 08/07/2023 15:15:15 08/07/2008/07/2023 urina lysis , dipst ick Protein (reference range) negati ve Not Available [facility] [address], [place], [address], 08/07/2023 15:15:15 08/07/2008/07/2023 urina lysis , dipst ick pH (reference range 5-8.5) 6.0 Not Available [facility] [address], [place], [address], 08/07/2023 15:15:15 08/07/2008/07/2023 urina lysis , dipst ick Blood (reference range:) small Not Available [facility] [address] [place] [address] [address], [place], [address], 08/07/2023 15:15:15 08/07/2008/07/2023 urina lysis , dipst ick Specific [place] (reference range) 1.015 Not Available [facility] [address], [place], [address], 08/07/2023 15:15:15 08/07/2008/07/2023 urina lysis , dipst ick Ketone (reference range) negati ve Not Available [address], [place], [address], 08/07/2023 15:15:15 08/07/2008/07/2023 urina lysis , dipst ick Bilirubin (reference range) negati ve Not Available [address], [place], [address], 08/07/2023 15:15:15 08/07/20 23 08/07/2023 urina lysis , dipst ick Glucose (reference range) 250 Not Available [facility] [address], [place], [address], 08/07/2023 15:15:15 08/07/20 23 08/07/2023 urina lysis , dipst ick Color (reference range: yellow-brown ) Yellow Not Available [facility] [address], [place], [address], 08/07/2023 15:15:15 02/24/20 25 02/23/2025 CBC AUTO W DIFF WBC 11.3 K/uL 4.0-10 .5 high Not Available [facility] ([facility]) [address] [facility], [place], [address], 02/23/2025 15:02:28 02/24/20 25 02/23/2025 CBC AUTO W DIFF RBC 5.7 M/mm3 4.2-6. 4 Not Available [facility] ([facility]) [address], [place], [address], 02/23/2025 15:02:28 02/24/20 25 02/23/2025 CBC AUTO W DIFF HGB 15.8 gm/dL 12.5-1 6.0 Not Available [facility] ([facility]) [address] [facility], [place], [address], 02/23/2025 15:02:28 02/24/20 25 02/23/2025 CBC AUTO W DIFF HCT 48.8 % 37.0-4 7.0 high Not Available [facility] ([facility]) [address], [place], [address], 02/23/2025 15:02:28 02/24/20 25 02/23/2025 CBC AUTO W DIFF MCV 86.4 fL 78-100 Not Available [facility] ([facility]) [address], [place], [address], 02/23/2025 15:02:28 02/24/20 25 02/23/2025 CBC AUTO W DIFF MCH 28.0 pg 27-31 Not Available [facility] ([facility]) [address], [place], [address], 02/23/2025 15:02:28 02/24/20 25 02/23/2025 CBC AUTO W DIFF MCHC 32.4 g/dL 32-36 Not Available [facility] ([facility]) [address], [place], [address], 02/23/2025 15:02:28 02/24/20 25 02/23/2025 CBC AUTO W DIFF RDW 13.7 % 11.5-1 4.0 Not Available [facility] ([facility]) [address], [place], [address], 02/23/2025 15:02:28 02/24/20 25 02/23/2025 CBC AUTO W DIFF platelet count 380 K/uL 150-45 0 Not Available [facility] ([facility]) [address], [place], [address], 02/23/2025 15:02:28 02/24/20 25 02/23/2025 CBC AUTO W DIFF MPV 10.3 fL 6-9.5 high Not Available [facility] ([facility]) [address], [place], [address], 02/23/2025 15:02:28 02/24/20 25 02/23/2025 CBC AUTO W DIFF neutrophil% 66.5 % 43-65 high Not Available [facility] ([facility]) [address], [place], [address], 02/23/2025 15:02:28 02/24/20 25 02/23/2025 CBC AUTO W DIFF lymphocyte% 24.3 % 20.5-4 5.5 Not Available [facility] ([facility]) [address], [place], [address], 02/23/2025 15:02:28 02/24/20 25 02/23/2025 CBC AUTO W DIFF monocyte% 6.0 % 5.5-11 .7 Not Available [facility] ([facility]) [address], [place], [address], 02/23/2025 15:02:02/24/20 25 02/23/2025 CBC AUTO W DIFF eosinophil% 2.3 % 0.9-2. 9 Not Available [facility] ([facility]) [address] [facility], [place], [address], 02/23/2025 15:02:28 02/24/20 25 02/23/2025 CBC AUTO W DIFF basophil% 0.6 % 0.2-1. 0 Not Available [facility] ([facility]) [address] [place], [address], 02/23/2025 15:02:28 02/24/20 25 02/23/2025 CBC AUTO W DIFF immature granulocytes % 0.3 % 0.0-0. 8 Not Available [facility] ([facility]) [address] [place], [address], 02/23/2025 15:02:28 02/24/20 25 02/23/2025 CBC AUTO W DIFF nucleated red blood cells % 0.0 % Not Available [facility] ([facility]) [address] [place], [address], 02/23/2025 15:02:28 02/24/20 25 02/23/2025 CBC AUTO W DIFF neutrophil# 7.5 K/uL 2.2-4. 8 high Not Available [facility] ([facility]) [address] [facility], [place], [address], 02/23/2025 15:02:28 02/24/20 25 02/23/2025 CBC AUTO W DIFF lymphocyte# 2.7 cell/ mcL 1.3-2. 9 Not Available [facility] ([facility]) [address], [place], [address], 02/23/2025 15:02:28 02/24/20 25 02/23/2025 CBC AUTO W DIFF monocyte# 0.7 cell/ mcL 0.3-0. 8 Not Available [facility] ([facility]) [address] [facility], [place], [address], 02/23/2025 15:02:28 02/24/20 25 02/23/2025 CBC AUTO W DIFF eosinophil# 0.3 cell/ mcL 0-0.2 high Not Available [facility] ([facility]) [address] [facility], [place], [address], 02/23/2025 15:02:28 02/24/20 25 02/23/2025 CBC AUTO W DIFF basophil# 0.1 cell/ mcL 0.0-1. 0 Not Available [facility] ([facility]) [address] [facility], [place], [address], 02/23/2025 15:02:28 02/24/20 25 02/23/2025 CBC AUTO W DIFF immature gramulocytes # 0.03 K/uL Not Available [facility] ([facility]) [address] [facility], [place], [address], 02/23/2025 15:02:28 02/24/20 25 02/23/2025 CBC AUTO W DIFF nucleated red blood cells # 0.00 K/uL Not Available [facility] ([facility]) [address] [facility], [place], [address], 02/23/2025 15:02:28 04/29/02/23/2025 CBC AUTO W DIFF manual differential NO Not Available [facility] ([facility]) [address], [place], [address], 02/23/2025 15:02:28 02/24/20 25 02/23/2025 COMP METAB OLIC PANEL sodium 138 mmol/ L 136-14 5 Not Available [facility] ([facility]) [address], [place], [address], 02/23/2025 15:39:03 02/24/20 25 02/23/2025 COMP METAB OLIC PANEL potassium 3.7 mmol/ L 3.6-5. 0 Not Available [facility] ([facility]) [address] , [place], [address], 02/23/2025 15:39:03 02/24/20 25 02/23/2025 COMP METAB OLIC PANEL chloride 98 mmol/ L 98-107 Not Available [facility] ([facility]) [address] , [place], [address], 02/23/2025 15:39:03 02/24/20 25 02/23/2025 COMP METAB OLIC PANEL carbon dioxide 26.8 mmol/ L 21.0-3 2.0 Not Available [facility] ([facility]) [address] , [place], [address], 02/23/2025 15:39:03 02/24/20 25 02/23/2025 COMP METAB OLIC PANEL anion gap 16.9 Not Available [facility] ([facility]) [address] [place], [address], 02/23/2025 15:39:03 02/24/20 25 02/23/2025 COMP METAB OLIC PANEL glucose 200 mg/dL 70-120 high Not Available [facility] ([facility]) [address], [place], [address], 02/23/2025 15:39:03 02/24/20 25 02/23/2025 COMP METAB OLIC PANEL BUN 12 mg/dL 7-18 Not Available [facility] ([facility]) [address], [place], [address], 02/23/2025 15:39:03 02/24/20 25 02/23/2025 COMP METAB OLIC PANEL creatinine 1.1 mg/dL 0.6-1. 3 Not Available [facility] ([facility]) [address], [place], [address], 02/23/2025 15:39:03 02/24/20 25 02/23/2025 COMP METAB [...] funct ion. Not Available [facility] ([facility]) [address] , [place], [address], 02/23/2025 15:39:03 02/24/20 25 02/23/2025 COMP METAB OLIC PANEL osmolality (calculated) 293 mOsm/ kg 275-30 1 OSMOL ALITY IS A CALCU LATIO N UTILI ZING THE SERUM /PLAS MA SODIU M, GLUCO SE AND UREA NITRO GEN (BUN) LEVEL S. FOR THE MOST ACCUR ATE RESUL T A MEASU RED SERUM OSMOL ALITY IS SUGGE STED. Not Available [facility] ([facility]) [address], [place], [address], 02/23/2025 15:39:03 02/24/20 25 02/23/2025 COMP METAB OLIC PANEL total protein 8.1 g/dL 6.4-8. 2 Not Available [facility] ([facility]) [address] , [place], [address], 02/23/2025 15:39:03 02/24/20 25 02/23/2025 COMP METAB OLIC PANEL albumin 3.6 g/dL 3.4-5. 0 Not Available [facility] ([facility]) [address] , [place], [address], 02/23/2025 15:39:03 02/24/20 25 02/23/2025 COMP METAB OLIC PANEL globulin 4.5 Not Available [facility] ([facility]) [address], [place], [address], 02/23/2025 15:39:03 02/24/20 25 02/23/2025 COMP METAB OLIC PANEL alb/glob ratio 0.8 0.7-2 Not Available [facility] ([facility]) [address], [place], [address], 02/23/2025 15:39:03 02/24/20 25 02/23/2025 COMP METAB OLIC PANEL calcium 10.2 mg/dL 8.5-10 .5 Not Available [facility] ([facility]) [address], [place], [address], 02/23/2025 15:39:03 02/24/20 25 02/23/2025 COMP METAB OLIC PANEL bilirubin total 0.60 mg/dL 0.10-1 .00 Not Available [facility] ([facility]) [address] [place], [address], 02/23/2025 15:39:03 02/24/20 25 02/23/2025 COMP METAB OLIC PANEL AST (SGOT) 46 U/L 0-37 high Not Available [facility] ([facility]) [address], [place], [address], 02/23/2025 15:39:03 02/24/20 25 02/23/2025 COMP METAB OLIC PANEL ALT (SGPT) 78 U/L 0-65 high Not Available [facility] ([facility]) [address], [place], [address], 02/23/2025 15:39:03 02/24/20 25 02/23/2025 COMP METAB OLIC PANEL alk phosphatase 111 U/L 46-116 Not Available [facility] ([facility]) [address] [facility], [place], [address], 02/23/2025 15:39:03 02/24/20 25 02/23/2025 C-KARLI CTIVE PROTE IN (CRP) C-reactive protein, quant 2.0 mg/dL 0.05-0 .300 high Not Available [facility] ([facility]) [address] [facility], [place], [address], 02/23/2025 15:40:11 02/24/20 25 02/23/2025 SED RATE sed rate auto 9 0-20 Not Available [facility] ([facility]) [address] [facility], [place], [address], 02/23/2025 15:43:35 02/24/20 25 02/27/2025 URINE CULTU RE,CO MPREH ENSIV E urine culture,comp rehensive FINAL REPORT abnormal Not Available [facility] ([facility]) [address] [facility], [place], [address], 02/27/2025 19:09:52 02/24/20 25 02/27/2025 URINE CULTU [...] ng units per mL Not Available [facility] ([facility]) [address] [facility], [place], [address], 02/27/2025 19:09:52 02/24/2002/27/2025 URINE CULTU RE,CO MPREH [...] as Cefta rolin e Not Available [facility] ([facility]) [address] [facility], [place], [address], 02/27/2025 19:09:52 02/24/2002/27/2025 URINE CULTU RE,CO MPREH [...] Vanco mycin R S Not Available [facility] ([facility]) [address] [facility], [place], [address], 02/27/2025 19:09:52 02/24/20 25 02/23/2025 urina lysis , dipst ick Leukocytes (reference range) trace Not Available [place] [address], [place], [address], 02/23/2025 14:16:48 02/24/20 25 02/23/2025 urina lysis , dipst ick Nitrite (reference range:) negati ve Not Available [place] [address] [facility] [address], [place], [address], 02/23/2025 14:16:48 02/24/20 25 02/23/2025 urina lysis , dipst ick Urobilinogen (reference range) 0.2 Not Available [place] [address] [address] [facility] [address], [place], [address], 02/23/2025 14:16:48 02/24/20 25 02/23/2025 urina lysis , dipst ick Protein (reference range) negati ve Not Available [place] [address] [facility] [address], [place], [address], 02/23/2025 14:16:48 02/24/20 25 02/23/2025 urina lysis , dipst ick pH (reference range 5-8.5) 6.0 Not Available [place] [address] [facility] [address], [place], [address], 02/23/2025 14:16:48 02/24/20 25 02/23/2025 urina lysis , dipst ick Blood (reference range:) small Not Available [place] [address] [address] [facility] [address], [place], [address], 02/23/2025 14:16:48 02/24/20 25 02/23/2025 urina lysis , dipst ick Specific [place] (reference range) 1.015 Not Available [place] [address] [address] [facility] [address], [place], [address], 02/23/2025 14:16:48 02/24/20 25 02/23/2025 urina lysis , dipst ick Ketone (reference range) negati ve Not Available [place] [address] [address] [facility] [address], [place], [address], 02/23/2025 14:16:48 02/24/20 25 02/23/2025 urina lysis , dipst ick Bilirubin (reference range) negati ve Not Available [place] [address] [address] [facility] [address], [place], [address], 02/23/2025 14:16:48 02/24/20 25 02/23/2025 urina lysis , dipst ick Glucose (reference range) 500 Not Available [place] [address] [address] [facility] [address], [place], [address], 02/23/2025 14:16:48 02/24/20 25 02/23/2025 urina lysis , dipst ick Color (reference range: yellow-brown ) Dark Yellow Not Available [place] [address] [address] [facility] [address], [place], [address], 02/23/2025 14:16:48 Result Notes None recorded. Problems Name Problem SNOMED Code Status Onset Date Resolution Date Notes Provider Name and Address Organization Details Recorded Time Syncope 903279878 Active 2021 Malina Hernandez DO [address], [place], [address] , [facility] [place] 15:33:04 Hypersomnia 11292015 Active 2021 Malina Hernandez DO [address] [facility], [place], [address] , [place] - [facility] & [place] 15:34:08 Problem Notes None recorded. Procedures Surgical History Date Name Laterality Status Provider Name and Address Organization Details Recorded Time 09/25/20 23 Cystoscopy-Female completed Silvio Valdez MD [address] 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 Procedure Notes None recorded. Medical Equipment None Reported. Allergies Allergen ID Allergen Name Allergen Category Reaction Reaction Severity Criticality Documentation Date Start Date Code Code System Note Provider Name and Address Organization Details Recorded Time 09895 aspirin medicatio n chest pain wheezing moderate severe Not available 10/02/2022 1191 RxNorm Vandana Eugenioa null, [place] - [facility] & [place] 09:22:42 41380 Bactrim medicatio n arthralgi a (joint pain) muscle cramps severe severe Not available 10/02/2022 16771 9 RxNorm Vandana Eugenioa null, [place] - [facility] & [place] 09:22:49 18485 insect venom environme nt confusion cough dizziness fever flushing headache wheezing moderate moderate moderate mild moderate moderate moderate Not available 10/02/2022 67621 UNK Vandana catherine, [facility] & [place] 2 09:23:13 19510 Pneumococ georges vaccine Not available anaphylax is chest pain facial swelling nausea rash wheezing moderate moderate moderate moderate moderate moderate Not available 10/02/2022 28438 7 RxNorm Vandana catherine, [facility] [place] [facility] & [place] 2 09:23:25 06435 rosuvasta tin medicatio n eye swelling facial swelling respirato ry distress moderate moderate moderate Not available 10/02/2022 57101 2 RxNorm Vandana catherine, [facility] & [place] 2 09:23:35 Medications Name [...] % 80 /min 98.6 [degF] 49.6 kg/m2 603716. 86 g 116 mm[Hg] 100 mm[Hg] Bianca Smith [place] - [facility] 5 13:59:18 Date Recorded Body height Heart rate Oxygen saturation Oxygen saturation in Arterial blood by Pulse oximetry Heart rate Body temperature Body mass index (BMI) Body weight Systolic blood pressure Diastolic blood pressure Provider Name and Address Organization Details Last Updated DateTime 5 160.02 cm 60 /min 97 % 97 % 60 /min 97.7 [degF] 49.6 kg/m2 182615. 86 g 119 mm[Hg] 79 mm[Hg] Bianca ELLER - [facility] 5 13:31:54 Date Recorded Body height Body temperature Oxygen saturation Oxygen saturation in Arterial blood by Pulse oximetry Inhaled oxygen flow rate Heart rate Body mass index (BMI) Body weight Systolic blood pressure Diastolic blood pressure Provider Name and Address Organization Details Last Updated DateTime 3 157.48 cm 97.1 [degF] 98 % 98 % 2 L/min 89 /min 48.3 kg/m2 378262. 39 g 128 mm[Hg] 98 mm[Hg] Phillip Morrison [facility] & [place] 3 13:04:48 Date Recorded Body height Body mass index (BMI) Body weight Systolic blood pressure Diastolic blood pressure Provider Name and Address Organization Details Last Updated DateTime 08/07/2023 157.48 cm 49.4 kg/m2 882480.9 4 g 125 mm[Hg] 75 mm[Hg] Britney Yee [facility] & [place] 3 15:05:24 Date Recorded Body height Body mass index (BMI) Body weight Systolic blood pressure Diastolic blood pressure Provider Name and Address Organization Details Last Updated DateTime 09/25/2023 157.48 cm 51.2 kg/m2 097446.8 6 g 126 mm[Hg] 76 mm[Hg] Ioana Ayala [facility] & [place] 3 15:07:04 Social History Question Answer Notes LastModified by [employer] ([employer] and Technology[employer] ion Details LastModified Time Tobacco Smoking Status Never Smoker [facility] [place] 10/03/2022 14:32:09 Do You Have An Advance Directive? No Information not available 10/03/2022 Are You Blind Or Do You Have Difficulty Seeing? No Information not available 10/03/2022 What Was The Date Of Your Most Recent Tobacco Screening? 09/17/2022 Information not available 10/03/2022 Do You Have Any Pets? Yes [email or web address] Information not available 09/25/2023 Are You Passively Exposed To Smoke? No Information not available 10/03/2022 Are You Currently In School? No [employer] [email or web address] Information not available 09/25/2023 Sex: Female Functional Status Question Answer Note LastModified by Organizat ion Details LastModified Time Do you use any illicit or recreational drugs? No Information not available 10/03/2022 What is your level of alcohol consumption? 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 Occasional Information not available 10/03/2022 Mental Status Question Answer Note LastModified by Organization D etails LastModified Time Do you feel stressed (tense, restless, nervous, or anxious, or unable to sleep at night)? [id number] Information not available 10/03/2022 Family History Relationship [...] SNOMED-CT Code Diagnosis ICD10 Code Diagnosis Note [id number] [facility] [address] [facility] [facility],[address] [place] [address] 10/03/2022 14:07:23 10/03/2022 15:38:25 Syncope [id number] R55 She has been experienci ng these stereotypi georges passing out episodes for five years. No definite witnessed convulsion s but some associated brief confusion afterwards .will order EEG to rule out neurologic causes of syncope Hypersomnia 03568650 G47 .10 She describes some significan t episodes of pathologic al sleepiness . She will fall asleep without warning in the middle of talking. This is very infrequent but can be suggestive of narcolepsy . Will order PSG with MSLT to evaluate this in more detail. [id number] Micheline Lackey MD [facility] General Surgery [address] [place] [address],[address] [place] [address] 04/02/2023 12:53:55 04/02/2023 13:53:12 Pelvic mass 82310772 R19.00 Possible lymphocele versus ovarian remnant from [...] patient with lab levels and consider further [facility] follow up. [id number] Silvio Valdez MD [facility] Urology [address] [place] [address],[address] [place] [address] 08/07/2023 14:35:57 08/07/2023 15:40:17 Recurrent urinary tract infection 258097346 N39.0 Kidney stone 48661359 N2 0.0 Chronic th oracic back pain 4787796786 14015 M54.6 Microscopic hematuria 19 1876117 R31.29 [id number] Silvio Valdez MD [facility] [address] [place] [address],[address] [place] [address] 09/25/2023 14:26:57 09/25/2023 15:25:02 Recurrent urinary tract infection 039982578 N39.0 Kidney stone 00685110 N2 0.0 Microscopic hematuria 19 6122157 R31.29 [id number] [facility] [address] [facility] [address] [place] [address] 02/23/2025 13:48:33 02/23/2025 14:17:11 Recurrent urinary tract infection 098586442 N39.0 Will check lab work. Will send urine off for a culture. Will see patient back in 1 week. 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 Patient will follow up in 2 weeks. Call the office if anything persists or worsens. 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 see above Health Concerns Section Related Observation LastModified by Organization Detai ls LastModified Time None Recorded Concern Status LastModified by Organization Details LastModified Time None Recorded Advance Directives Directive N: Payers Insurance Date Sequence Insurance Name Policy Number Policy Valdivia Covered Member ID Valdivia Member ID Guarantor Name 09/18/2023 1 [employer] [facility] (POS II) [facility] [id number] [facility] 02/27/2025 1 [facility] (MEDICAID HMO) [facility] [id number] [facility] Notes Date Note Type Note Provider [...] time. 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 Micheline Lackey MD [address] [facility], [place], [address], [facility] [place] 04/18/2023 12:50:43 08/07/2023 text/html Location: [...] status post hysterectomy. Silvio Valdez MD [address] [facility], [place], [address], [facility] [place] [facility] [place] 08/07/2023 15:35:17 09/25/2023 text/html Patient [...] hysterectomy. Silvio Valdez MD [address], [place], [address], [facility] & [place] 09/25/2023 15:30:10 02/23/2025 text/html patient [...] 2025. Marilou David APRN [address], [place], [address], [facility] & [place] 02/24/2025 10:59:38 03/02/2025 text/html patient presents to clinic for follow up. Urine culture results received. Patient denies any fever. She is scheduled to have surgery to remove her stone on . Marilou David APRN [address], [place], [address], [facility] - [facility] & [place] 03/02/2025 13:35:40 OBGyn Episode No OBEpisode recorded.
--- OUTSIDE RECORDS SUMMARY | 2025-04-09 13:48 | XMS_ITS | Referral Summary ---
Author Organization [employer] Address [address] [place] [address] Care Team Providers Care Perinatal Coordinator Name Role Phone Juarez Griffin MD Primary Care Provider [phone] Allergies Active Allergy Reactions Criticality Noted Date [...] your living situation today? I have a [facility] place to live 12/27/2023 Think about [...] Do you speak a language other than Croatian at [facility]? No 12/27/2023 Do you want help [...] on file Medical Devices Implanted Type Area Fagot Heater Helper Device Identifier Shelf Expiration Date Model / Serial / Lot Loop Recorder LOOP RECORDER Left: Chest Insurance [address] [place] [id number] [facility] Advance Directives For more information, please contact: [phone] * Full Code (Latest Code Status on File) Date Activated Date Inactivated Comments 12/27/2023 3:21 AM 12/30/2023 2:53 PM -Attempt Resus citation if person has no pulse and is not breathing. -If no pulse or not breathing attempt CPR/CODE. -Call Rapid Response if patient is in distress. Care Teams Perinatal Coordinator Relationship Specialty Start Date End Date Juarez Griffin MD [address] [place] [address] [place] [id number] PCP - General General Internal Medicine 12/30/23
--- OUTSIDE RECORDS SUMMARY | 2025-04-09 13:48 | XMS_ITS | Continuity of Care Document ---
Author Organization [facility] Infectious Disease -105 Address [address] [place] [address] Care Team Providers Care Penal Officer Name Role Phone SHERI BENAVIDESGHT Primary Care Provider Assessment No assessment recorded. Plan of Treatment Reminders Order Date Submit Date Provider Last Modified By Organization Details Last Modified Time Details Appointments None recorded. Lab urinalysis, dipstick [address] Infectious Disease -105, [address] [facility] [address], [place], [address], 14:18:52 CBC w/ diff 2024 025 [facility] (Registration ), [address] [facility], [place], [address], 16:11:55 CMP, serum or plasma 2024 025 [facility] (Registration ), [address] [facility], [place], [address], 5 15:39:03 ESR (erythrocyt e sedimentati on rate), blood [address] (Registration ), [address] [facility], [place], [address], 5 08:54:47 C-reactive protein, quantitativ e, serum or plasma 2024 025 [email or web address] [facility] (Registration ), [address], [place], [address], 08:54:48 culture, urine 2024 025 [facility], [address], [address], [place], [address], 19:09:52 Referral None recorded. Procedures None recorded. Surgeries None recorded. Imaging None recorded. Medication Orders None recorded. Patient TargetsNo targets recorded. Patient InstructionsNo instructions recorded. Reason for Referral None Reported. Results Created Date Observation Date Name Description Value Unit Range Abnormal Flag Note LastModifiedBy Organization Detail LastModifiedTime 02/24/2002/23/2025 urina lysis , dipst ick Leukocytes (reference range) trace Not Available [facility] Infectious Disease -[facility] [address] [facility] [address], [place], [address], 02/23/2025 14:16:48 02/24/20 25 02/23/2025 urina lysis , dipst ick Nitrite (reference range:) negati ve Not Available [facility] Infectious Disease -[facility] [address], [place], [address], 02/23/2025 14:16:48 02/24/20 25 02/23/2025 urina lysis , dipst ick Urobilinogen (reference range) 0.2 Not Available [facility] Infectious Disease -[facility] [address], [place], [address], 02/23/2025 14:16:48 02/24/20 25 02/23/2025 urina lysis , dipst ick Protein (reference range) negati ve Not Available [facility] Infectious Disease -[facility] [address] [facility] [address], [place], [address], 02/23/2025 14:16:48 02/24/20 25 02/23/2025 urina lysis , dipst ick pH (reference range 5-8.5) 6.0 Not Available [place] [address] [address] [facility] [address], [place], [address], 02/23/2025 14:16:48 02/24/20 25 02/23/2025 urina lysis , dipst ick Blood (reference range:) small Not Available [place] [address] [address] [facility] [address], [place], [address], 02/23/2025 14:16:48 02/24/20 25 02/23/2025 urina lysis , dipst ick Specific [place] (reference range) 1.015 Not Available [place] [address] [address] [facility] [address], [place], [address], 02/23/2025 14:16:48 02/24/20 25 02/23/2025 urina lysis , dipst ick Ketone (reference range) negati ve Not Available [place] [address] [address] [facility] [address], [place], [address], 02/23/2025 14:16:48 02/24/20 25 02/23/2025 urina lysis , dipst ick Bilirubin (reference range) negati ve Not Available [place] [address] [address] [facility] [address], [place], [address], 02/23/2025 14:16:48 02/24/20 25 02/23/2025 urina lysis , dipst ick Glucose (reference range) 500 Not Available [place] [address] [address] [facility] [address], [place], [address], 02/23/2025 14:16:48 02/24/20 25 02/23/2025 urina lysis , dipst ick Color (reference range: yellow-brown ) Dark Yellow Not Available [facility] Infectious Disease -[address], [place], [address], 02/23/2025 14:16:48 Result Notes None recorded. Problems Name Problem SNOMED Code Status Onset Date Resolution Date Notes Provider Name and Address Organization Details Recorded Time Syncope 273598935 Active 2021 Malina Hernandez DO [address] [facility], [place], [address] , [place] - [facility] - [place] & [place] 15:33:04 Hypersomnia 23431045 Active 2021 Malina Hernandez DO [address] [facility], [place], [address] , [place] - [facility] - [place] & [place] 15:34:08 Problem Notes None recorded. Procedures Surgical History Date Name Laterality Status Provider Name and Address Organization Details Recorded Time 09/25/20 23 Cystoscopy-Female completed Silvio Valdez MD [address] [facility], [place], [address], [place] - [facility] - [place] & [place] 09/25/2023 15:26:11 04/04/20 22 Date of Last Pap Smear completed Vandana Dalla [place] [facility] [place] & [place] 10/03/2022 14:31:43 10/28/19 22 Dairy Clerk Surgery completed Vandana Dalla [place] [facility] [place] & [place] 10/03/2022 14:45:45 10/28/19 17 Cholecystectomy completed Vandana Dalla [place] [facility] [place] & [place] 10/03/2022 14:32:27 10/28/19 14 Other completed Vandana Dalla [place] [facility] [place] & [place] 10/03/2022 14:44:51 cardiac catheterization completed Vandana Dalla [place] [facility] [place] & [place] 10/03/2022 14:46:31 strabismus surgery completed Vandana Dalla [place] [facility] [place] & [place] 10/03/2022 14:55:15 Imaging Results None recorded. Procedure Notes None recorded. Medical Equipment None Reported. Allergies Allergen ID Allergen Name Allergen Category Reaction Reaction Severity Criticality Documentation Date Start Date Code Code System Note Provider Name and Address Organization Details Recorded Time 91791 aspirin medicatio n chest pain wheezing moderate severe Not available 10/02/2022 1191 RxNorm Vandana catherine, [place] [facility] & [place] 2 09:22:42 24140 Bactrim medicatio n arthralgi a (joint pain) muscle cramps severe severe Not available 10/02/2022 82938 9 RxNorm Vandana catherine, [place] DARLING [facility] & [place] 2 09:22:49 57008 insect venom environme nt confusion cough dizziness fever flushing headache wheezing moderate moderate moderate mild moderate moderate moderate Not available 10/02/2022 52057 UNK Vandana catherine, [place] Shea [facility] & [place] 2 09:23:13 36335 Pneumococ georges vaccine Not available anaphylax is chest pain facial swelling nausea rash wheezing moderate moderate moderate moderate moderate moderate Not available 10/02/2022 78456 7 RxNorm Vandana catherine, [place] DARLING [facility] & [place] 2 09:23:25 94354 rosuvasta tin medicatio n eye swelling facial swelling respirato ry distress moderate moderate moderate Not available 10/02/2022 31355 2 RxNorm Vandana catherine, [place] DARLING [facility] & [place] 2 09:23:35 Medications Name Sig Start Date [...] % 80 /min 98.6 [degF] 49.6 kg/m2 895646. 86 g 116 mm[Hg] 100 mm[Hg] Bianca Smith [place] - [facility] - [place] & [place] 5 13:59:18 Social History Question Answer Notes LastModified by [employer] Details LastModified Time Tobacco Smoking Status Never Smoker Vandana Harris [place], [place] - [facility] - [place] & [place] 10/03/2022 14:32:09 Do You Have An Advance Directive? No Information not available 10/03/2022 Are You Blind Or Do You Have Difficulty Seeing? No Information not available 10/03/2022 What Was The Date Of Your Most Recent Tobacco Screening? 09/17/2022 Information not available 10/03/2022 Do You Have Any Pets? Yes [email or web address] Information not available 09/25/2023 Are You Passively Exposed To Smoke? No Information not available 10/03/2022 Are You Currently In School? No [employer] [email or web address] Information not available 09/25/2023 Sex: Female Functional Status Question Answer Note LastModified by [employer] Details LastModified Time Do you use any illicit or recreational drugs? No Information not available 10/03/2022 What is your level of alcohol consumption? 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 Occasional Information not available 10/03/2022 Mental Status Question Answer Note LastModified by Organization D etails LastModified Time Do you feel stressed (tense, restless, nervous, or anxious, or unable to sleep at night)? 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 Will send [...] [facility] (MEDICAID HMO) Lissystas Valdez [id number] Lissy Valdez Notes Date Note Type Note [...] 2025. Marilou David, PREETI [address], [place], [address], [facility] - [place] & [place] 02/24/2025 10:59:38 OBGyn Episode No OBEpisode recorded.
== END 2025-04-09 14:08 | disposition home or self-care (01) ==
LOC: INF 13:45
PROVIDERS: PCP Internal Medicine; Visit Provider Internal Medicine
DX: N39.0 Urinary tract infection, site not specified (principal); B96.4 Proteus (mirabilis) (morganii) as the cause of diseases classified elsewhere; Z16.24 Resistance to multiple antibiotics
CPT/HCPCS: 96523

== ENCOUNTER 2025-04-11 02:11 | Emergency (ER) | payer OTHER, SELFPAY ==
[2025-04-11 02:22] VITALS: BP 131/82; PULSE 93; RESP 16; TEMP 36.9; O2SAT 97; BMI 49.6
--- NOTE | 2025-04-11 02:25 | PC.NURSE ---
pts blood sugar was 232
[2025-04-11 02:30] VITALS: BP 109/82; PULSE 87; RESP 14; O2SAT 96
--- OUTSIDE RECORDS SUMMARY | 2025-04-11 02:33 | XMS_ITS | Data Portability ---
Author Organization [facility] Mahamed morgan, ABHAYS KLAWOCK CLOSED Address [address] [facility] [address] [place] [address] Assessment No assessment recorded. Plan of Treatment Reminders Order Date Submit Date Provider Last Modified By Organization Details Last Modified Time Details Appointments None recorded. Lab None recorded. Referral aquatic therapy referral 2017 018 [email or web address] 2 Not available 8 11:14:18 [facility] behavioral [facility] 2017 018 [facility] [address] [facility], [address], [place], [address], 8 11:14:19 occupationa l therapist referral 2017 018 [email or web address] 2 Not available 8 11:14:17 Procedures None recorded. Surgeries None recorded. Imaging None recorded. Medication Orders None recorded. Patient TargetsNo targets recorded. Patient Instructions Encounter Date Encounter Id Patient Instructions Last Modified By Organization Details Last Modified Time 08/13/2018 [id number] learning about healthy weight Not available 08/13/2018 [...] Name and Address Organization Details Recorded Time 498415 aspirin medicatio n Not available Not available Not available 08/13/2018 1191 RxNorm Melinda Hudson [facility] 8 10:01:54 Medications Name Sig Start [...] Address Organization Details Last Updated DateTime 8 553862. 12 g 48.2 kg/m2 160.02 cm 18 /min 61 /min 132 mm[Hg] 96 mm[Hg] Melinda Hudson [facility] 8 10:06:40 Social History Question Answer Notes LastModified by Organizat ion Details LastModified Time Tobacco Smoking Status Never Smoker Melinda Hudson [facility] 08/13/2018 10:02:03 What Was The Date Of Your Most Recent Tobacco Screening? 08/13/2018 Information n ot available 12/15/2019 Sex: Unknown Functional Status None recorded. Mental Status None recorded. Family History Relationship Description Onset Age of this Age Resolved Age Notes LastModified by Organization Details LastModified Time Father No current problems or disability [email or web address] Not available 08/13 10:02:01 Mother No current problems or disability [email or web address] Not available 08/13 10:02:01 Medical History Condition [...] SNOMED-CT Code Diagnosis ICD10 Code Diagnosis Note [id number] CLIFF BARBER MD RHEUMATOL OGY [address] [place] [address] 08/13/2018 09:13:44 08/13/2018 10:48:47 Pain of multiple joints 33054870 M25.50 she has clinical features of [place] OA. no features of an inflammato ry arthritis noted. no features of rheumatoid noted. 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 would suggest to avoid steroids and start OT as stated below. she can RTC with me as prn. Fibromyalgia 519696569 M 79.7 she has clinical features suggestive [...] OT to help with the ROM and hospice care transitions coordinator. 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 Health Concerns Section Related Observation LastModified by Organization Detai ls LastModified Time None Recorded Concern Status LastModified by Organization Details LastModified Time None Recorded Advance Directives Directive None Recorded Payers Insurance Date Sequence Insurance Name Policy Number Policy Valdivia Covered Member ID Valdivia Member ID Guarantor Name 02/03/2024 1 [facility] ([facility] [id number] [facility] 01/24/2024 1 [place] [employer] - FFS/TRADITIO NAL Lissy [facility] [id number] Lissy [facility] 02/04/2024 1 [facility] (MEDICAID HMO) [facility] [id number] [facility] 01/31/2024 1 [facility] (PP[place] [id number] Lissy [facility] [id number] Lissy [facility] Notes Date Note Type Note [...] and a normal TSH. CLIFF BARBER MD [facility] [place], [address], [facility] 08/13/2018 17:00:47 OBGyn Episode No OBEpisode recorded.
--- OUTSIDE RECORDS SUMMARY | 2025-04-11 02:33 | XMS_ITS | Encounter Summary ---
Author Organization [facility] Address [address] [place] [address] Care Team Providers Care Tectonophysicist Name Role Phone Juarez Griffin MD Primary Care Provider [phone] Karen Naqvi DO Unavailable [phone] Encounter Details Date Type Department Care Team ([facility] st Contact Info) Description 02/12/2024 Orders Only External Location [address] [place] [address] Gennaro Cuevas MD [facility] [address] [place] [address] Social History Tobacco Use Types Packs/Day Years [...] Comment:+ 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 Source: [facility]. This patient will require contact precautions indefinitely. 04/01/2024 documented as of this encounter Care Teams Tectonophysicist Relationship Specialty Start Date End Date Juarez Griffin MD [address] [place] [address] PCP - General 03/10/21 Karen Naqvi DO [facility] [address] [place] [address] Referring Physician Obstetrics and Gynecology 09/23/24 documented as of this encounter
--- OUTSIDE RECORDS SUMMARY | 2025-04-11 02:33 | XMS_ITS | Clinical Summary ---
Author Organization [facility] Address [address] [place] [address] Phone Care Team Providers Care Drop Crew Laborer Name Role Phone Zofia Perkins Unavailable Unavailable Conditions or Problems Problem Name Problem Code Onset Date Status Entry Date Provider Comment Standard Description Annotate Acute Pyelonephritis 66633773 (SNOMED CT) 01/07 Active 01/07 Malina Ames Acute pyelonephritis Obstructive uropathy with infection N13.6 (ICD-10-C M) 01/07 Active 01/07 Malina Ames Pyonephrosis Neutrophilic leukemoid reaction D72.823 (ICD-10-C M) 01/07 Active 01/07 Malina Ames Leukemoid reaction COPD 67815830 (SNOMED CT) 01/07 Active 01/07 Malina Ames Chronic obstructive pulmonary disease Morbid obesity due to excess calories E66.01 (ICD-10-C M) 01/07 Active 01/07 Malina Ames Morbid (severe) obesity due to excess calories DM Type II E11.9 (ICD-10-C M) 01/07 Active 01/07 Malina Ames Type 2 diabetes mellitus without complications Benign hypertensive heart disease with chronic diastolic heart failure (I50.32) 57959086 (SNOMED CT) 01/07 Active 01/07 Malina Ames Benign hypertension Medications Medication Instructions Start Date Stop Date Generic Name [facility] Provider FOSFOMYCIN TROMETHAMINE 3 GM PACK Take 1 packet by mouth as directed take 1 packet every 3-4 days (2 times weekly) fosfomycin tromethamine 39320248607 Calvin Villarreal MD PREDNISONE 20 MG TABS prednisone 41477194353 Milly Jabierbrianne VITAMIN C 500 MG CAPS twice a day ascorbic acid (vitamin c) 18211183434 Milly Mosquera HIPREX 1 GM TABS Take 1 tablet by mouth twice a day 02/18 methenamine hippurate 69491565211 Calivn Villarreal MD INDOMETHACIN 50 MG CAPS Take 1 capsule by mouth three times a day indomethacin 54893598253 Linda De Leon SUCRALFATE 1 GM TABS Take 1 tablet by mouth four times a day sucralfate 52890078370 Linda De Leon BUMETANIDE 2 MG TABS Take 1 tablet by mouth twice a day bumetanide 10389223580 Linda De Leon PRAVASTATIN SODIUM 10 MG TABS Take 1 tablet by mouth every night pravastatin 82440719103 Linda De Leon ENTRESTO 24-26 MG TABS Take 1 tablet by mouth twice a day sacubitril-valsa rtan 75352106387 Linda De Leon VENTOLIN HFA 108 (90 Base) MCG/ACT AERS Inhale 2 puff by mouth every four to six hours as needed albuterol sulfate 12218678248 Linda De Leon ADVAIR DISKUS 250-50 MCG/ACT AEPB Inhale 1 puff twice a day fluticasone propion-salmeter ol 34010507917 Linda De Leon OMEPRAZOLE 20 MG CPDR Take 1 capsule by mouth once a day omeprazole 76797290222 Linda De Leon METFORMIN HCL 500 MG TABS Take 1 tablet by mouth twice a day metformin 07264062209 Linda De Leon FARXIGA 10 MG TABS Take 10 mg by mouth once a day dapagliflozin propanediol 24777811605 Linda De Leon IBUPROFEN (IBUPROFEN) 800 MG TABS Take 1 tablet by mouth every six hours as needed IBUPROFEN Linda De Leon TIZANIDINE HCL 4 MG TABS Take 1 tablet by mouth as needed tizanidine 00887803746 Linda De Leon TRAMADOL HCL 50 MG TABS every twelve hours tramadol 54068160886 Linda De Leon NITROGLYCERIN 0.[address] 1 tablet under tongue as needed nitroglycerin 58665252029 Linda Moises ONDANSETRON HCL 4 MG TABS Take 1 tablet by mouth every eight hours as needed ondansetron hcl 27919303300 Linda Moises SPIRONOLACTONE 50 MG TABS Take 1 tablet by mouth once a day spironolactone 03912818736 Linda De Leon SITagliptin (JANUVIA) 25 MG tablet Take 1 tablet by mouth once a day JANOLIVER De Leon NEBIVOLOL HCL 5 MG TABS Take 1 tablet by mouth once a day nebivolol 51419397125 Jazieltyree De Leon GLYXAMBI 10-5 MG TABS Take 1 tablet by mouth once a day empagliflozin-li nagliptin 33882166435 Linda De Leon VENTOLIN HFA 108 (90 Base) MCG/ACT AERS INHALE TWO PUFFS BY MOUTH EVERY 4 TO 6 HOURS NEEDED 01/19 albuterol sulfate 95435530067 QIE qieuser TRAMADOL HCL 50 MG TABS Every 12 (Twelve) Hours. 01/19 tramadol 78505064825 QIE qieuser TIZANIDINE HCL 4 MG TABS Take 1 tablet by mouth As Needed. 01/19 tizanidine 21539083849 QIE qieuser SUCRALFATE 1 GM TABS Take 1 tablet by mouth 4 (Four) Times a Day. 01/19 sucralfate 06733933546 QIE qieuser SPIRONOLACTONE 50 MG TABS TAKE ONE TABLET BY MOUTH EVERY DAY 01/19 spironolactone 94156935497 QIE qieuser SITagliptin (JANUVIA) 25 MG tablet Take 1 tablet by mouth Daily. 01/19 JANUVIA QIE qieuser PRAVASTATIN SODIUM 10 MG TABS TAKE ONE TABLET BY MOUTH EVERY DAY AT BEDTIME 01/19 pravastatin 18777874472 QIE qieuser ONDANSETRON HCL 4 MG TABS Take 1 tablet by mouth Every 8 (Eight) Hours As Needed. 04/09 ondansetron hcl 06439154100 QIE qieuser OMEPRAZOLE 20 MG CPDR TAKE ONE CAPSULE BY MOUTH EVERY DAY 04/09 omeprazole 43629201604 QIE qieuser O2 (OXYGEN) 2 L by Alternating Nares route Every Night. OXYGEN QIE qieuser NITROGLYCERIN 0.[address] 1 tablet under the tongue As Needed for Chest Pain. 01/19 nitroglycerin 62741772270 QIE qieuser NEBIVOLOL HCL 5 MG TABS TAKE ONE TABLET BY MOUTH EVERY DAY 01/19 nebivolol 79464983733 QIE qieuser METFORMIN HCL 500 MG TABS Take 1 tablet by mouth 2 (Two) Times a Day. 01/19 metformin 03682331317 QIE qieuser IPRATROPIUM-ALBUT MIK 0.5-2.5 (3) MG/3ML SOLN ipratropium-albu terol 74839687942 QIE qieuser INDOMETHACIN 50 MG CAPS Take 1 capsule by mouth 3 (Three) Times a Day With Meals. 01/19 indomethacin 29089876762 QIE qieuser IBUPROFEN (IBUPROFEN) 800 MG TABS Take 1 tablet by mouth Every 6 (Six) Hours As Needed. 01/19 IBUPROFEN QIE qieuser ENTRESTO 24-26 MG TABS TAKE ONE TABLET BY MOUTH TWICE DAILY 01/19 sacubitril-valsa rtan 16302184725 QIE qieuser GLYXAMBI 10-5 MG TABS Take 1 tablet by mouth Daily. 01/19 empagliflozin-li nagliptin 02558241820 QIE qieuser FARXIGA 10 MG TABS Take 10 mg by mouth Daily. 01/19 dapagliflozin propanediol 81853729706 QIE qieuser BUMETANIDE 2 MG TABS TAKE ONE TABLET BY MOUTH TWICE DAILY 01/19 bumetanide 43527923951 QIE qieuser ADVAIR DISKUS 250-50 MCG/ACT AEPB Inhale 1 puff 2 (Two) Times a Day. 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
--- OUTSIDE RECORDS SUMMARY | 2025-04-11 02:33 | XMS_ITS | Encounter Summary ---
Author Organization [facility] Address [address] [place] [address] Care Team Providers Care Management Department Chair Name Role Phone Juarez Griffin MD Primary Care Provider [phone] Karen Naqvi DO Unavailable [phone] Encounter Details Date Type Department Care Team ([facility] st Contact Info) Description 03/12/2025 Orders Only External Location [address] [place] [id number] Provider, External Social History Tobacco Use Types [...] drink first t yue in the morning (EYE-RN OPERATING ROOM) to steady your nerves or to get [...] 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 Source: [facility] [employer]. This patient will require contact precautions indefinitely. 04/01/2024 Assessment Noted Time A fall risk assessment has been complete d for the patient 10/05/2024 1:53 PM EST A Body Mass Index follow-up plan has been documented for the patient 04/12/2024 12:42 PM EDT documented as of this encounter Care Teams Management Department Chair Relationship Specialty Start Date End Date Juarez Griffin MD [address] [facility] [address] [place] [address] PCP - General 03/10/21 Karen Naqvi DO [address] [facility] [address] [place] [address] Referring Physician Obstetrics and Gynecology 09/23/24 documented as of this encounter
--- NOTE | 2025-04-11 02:34 | HMH.EDGENADL ---
Discharge Plan Disposition Patient Disposition: Home, Self-Care Condition: Good Prescriptions Prescriptions: No Action spironolactone [Aldactone] 50 mg tablet 50 mg PO DAILY (DME) OneTouch Verio test strips Strip See Rx Instructions .Route Qty: 300 1RF Rx Instructions: As directed omeprazole 20 mg capsule,delayed release(DR/EC) 20 mg PO DAILY glipizide 2.5 mg tablet 2.5 mg PO BID Qty: 60 2RF Linzess 290 mcg capsule 290 mcg PO DAILY Qty: 30 2RF pravastatin 40 mg tablet 40 mg PO HS Qty: 90 1RF sennosides [senna] 8.6 mg tablet 8.6 mg PO BID PRN (Reason: constipation) Qty: 30 0RF oxycodone 5 mg tablet 5 mg PO Q8H PRN (Reason: pain) Qty: 60 0RF metformin 500 mg tablet 500 mg PO BID Qty: 180 1RF Rx Instructions: TAKE ONE TABLET BY MOUTH TWICE DAILY ibuprofen 800 mg tablet 800 mg PO TID PRN (Reason: Pain) Qty: 90 2RF Rx Instructions: TAKE ONE TABLET BY MOUTH THREE TIMES DAILY NEEDED WITH FOOD ascorbic acid (vitamin C) [Vitamin C] 500 mg tablet 500 mg PO BID Qty: 180 1RF Rx Instructions: TAKE ONE TABLET BY MOUTH TWICE DAILY Entresto 24-26 mg tablet 1 tab PO BID Qty: 180 1RF tramadol 50 mg tablet 50 mg PO Q6H PRN (Reason: pain) Qty: 120 0RF montelukast 10 mg tablet 10 mg PO HS Rx Instructions: TAKE ONE TABLET BY MOUTH EVERY DAY AT BEDTIME FOR ASTHMA cholecalciferol (vitamin D3) 125 mcg (5,000 unit) capsule 5,000 unit PO Q48H Mounjaro 2.5 mg/0.5 mL pen injector 2.5 mg SQ WEEKLY Patient Comments: Patient on pause due to upcoming surgery Rx Instructions: for 4 weeks ketorolac 10 mg tablet 10 mg PO Q6H PRN (Reason: pain) 5 Days Qty: 20 0RF bumetanide 2 mg tablet 2 mg PO DAILY calcium 500 mg Tablet 2,000 mg PO QID Trelegy Ellipta 100-62.5-25 mcg blister with device 1 ea INHALATION DAILY Patient Comments: INHALE 1 PUFF BY MOUTH EVERY DAY --RINSE MOUTH AFTER USE-- promethazine 12.5 mg Tablet 12.5 mg PO Q8 PRN (Reason: Nausea) ondansetron HCl 4 mg Tablet 4 mg PO Q6H albuterol sulfate 90 mcg/actuation Hfa Aerosol Inhaler 2 puff INHALATION QID PRN (Reason: Breathing Problems) ertapenem 1 gram Recon Soln 1 g IV Q24H 8 Days Qty: 0 0RF nebivolol 5 MG tablet 5 mg PO DAILY cetirizine [Zyrtec] 10 mg Tablet 10 mg PO DAILY Referrals Follow up/Referrals: Juarez Griffin MD [Primary Care Provider, Medical] - See instructions Activity Restrictions/Add. Instructions Additional Instructions/Restrictions: You were evaluated in the ER and are believed to be appropriate for discharge at this time. Continue taking your home medications as prescribed. Drink plenty of water. Make an appointment with your primary care doctor for reevaluation first thing Saturday morning. Also follow-up with urology as scheduled for urine culture and surgical follow-up. Return to the ER with any new, worsening, or otherwise concerning symptoms. Clinical Impressions Clinical Impression: Hyperglycemia Instructions Patient Instructions: DI for Hyperglycemia -- Adult Print Language Print Language: Greek Discharge ED Provider: Taiwo Ivy General Adult HPI General Chief complaint: Hyper/Hypoglycemia Stated complaint: High blood sugar 377 Time Seen by Provider: 04/11/25 02:20 Mode of Arrival: Ambulatory Source of Information: Patient Description of Symptoms (Recalled from ER Triage Doc. by RN): pt presents to the Ed d/t elevated blood sugar. pt states at 2200. pt had 277 mg/dl BG, pt BG once she rechecked hours later was 378. pt is type 2 dm, pt states blurry vision and no ketones in her urine with at home test. pt states she is 4 days off abx at home due to abx resistent UTI, picc line in place. hx of copd, CHF. pain 3.10 History of Present Illness HPI narrative: 49-year-old female who recently had staghorn calculus removed over 1 week ago and discontinued home antibiotic through her PICC line 4 days ago after having complicated UTI presents to the ER for concerns of elevated blood sugar. Patient reports she screwed up today and had Telugu takeout which she knew would elevate her blood sugar and states she has had recent medications while sick with complicated UTI and surgery so she is not on the same diabetes medications that she used to be. She states she knew her blood sugar would go up but became concerned when it was nearly 400 at home. Patient reports her vision was blurry when it was that high but she did not have ketones on her home urine. Patient states she is not having fevers, chills, no new urinary symptoms. She states she has follow-up for urine culture in 3 days and is not concerned about any urinary complaints at this time. She states she is not having any vomiting and her chronic nausea is at baseline and unchanged. Patient states no dizziness or headache, no numbness, tingling, or weakness. Her blood glucose on arrival to the ER was 232 and her blurry vision has resolved. Related Data Home Medications ?Medication ?Instructions ?Recorded ?Confirmed nebivolol 5 mg tablet 5 mg PO DAILY 12/21/21 04/06/25 spironolactone 50 mg tablet 50 mg PO DAILY 03/30/22 04/06/25 (Aldactone) omeprazole 20 mg capsule,delayed 20 mg PO DAILY 04/24/22 04/06/25 release cetirizine 10 mg tablet (Zyrtec) 10 mg PO DAILY 02/06/24 04/06/25 cholecalciferol (vitamin D3) 125 5,000 unit PO Q48H 01/27/25 04/06/25 mcg (5,000 unit) capsule montelukast 10 mg tablet 10 mg PO HS 01/27/25 04/06/25 tirzepatide 2.5 mg/0.5 mL 2.5 mg SQ WEEKLY 01/28/25 04/06/25 subcutaneous pen injector (Fadi) albuterol sulfate 90 mcg/actuation 2 puff inhalation QID PRN 03/12/25 04/06/25 aerosol inhaler Breathing Problems bumetanide 2 mg tablet 2 mg PO DAILY 03/12/25 04/06/25 calcium 500 mg tablet 2,000 mg PO QID 03/12/25 04/06/25 fluticasone fur. 100 mcg-umeclid 1 ea inhalation DAILY 03/12/25 04/06/25 62.5 mcg-vilant 25 mcg inhalat.powder (Trelegy Ellipta) ondansetron HCl 4 mg tablet 4 mg PO Q6H 03/12/25 04/06/25 promethazine 12.5 mg tablet 12.5 mg PO Q8 PRN Nausea 03/12/25 04/06/25 Previous Rx's ?Medication ?Instructions ?Recorded blood sugar diagnostic (OneTouch #300 ea 09/02/24 Verio test strips) pravastatin 40 mg tablet 40 mg PO HS #90 tabs 11/11/24 sennosides 8.6 mg tablet (senna) 8.6 mg PO BID PRN constipation #30 02/03/25 tabs ketorolac 10 mg tablet 10 mg PO Q6H PRN pain 5 days #20 02/05/25 tabs oxycodone 5 mg tablet 5 mg PO Q8H PRN pain #60 tabs 02/19/25 ibuprofen 800 mg tablet 800 mg PO TID PRN Pain #90 tabs 02/26/25 metformin 500 mg tablet 500 mg PO BID #180 tabs 02/26/25 ertapenem 1 gram solution for 1 g IV Q24H 8 days #0 ea 03/14/25 injection glipizide 2.5 mg tablet 2.5 mg PO BID #60 tabs 03/17/25 linaclotide 290 mcg capsule 290 mcg PO DAILY For constipation 03/17/25 (Linzess) #30 caps ascorbic acid (vitamin C) 500 mg 500 mg PO BID #180 tabs 04/05/25 tablet (Vitamin C) sacubitril 24 mg-valsartan 26 mg 1 tab PO BID #180 tabs 04/05/25 tablet (Entresto) tramadol 50 mg tablet 50 mg PO Q6H PRN pain #120 tabs 04/05/25 Allergies Allergy/AdvReac Type Severity Reaction Status Date / Time aspirin Allergy Severe S-DIFF. Verified 04/06/25 14:28 BREATHING bee venom protein (honey bee) Allergy Severe Anaphylaxis Verified 04/06/25 14:28 Bleach (Sodium Hypochlorite) Allergy Severe diff. Verified 04/06/25 14:28 breathing, dizzy amoxicillin (From Augmentin) Allergy Mild Unknown Verified 04/06/25 14:28 allergy reaction clavulanic acid (From Allergy Mild Unknown Verified 04/06/25 14:28 Augmentin) allergy reaction fluconazole (From Diflucan) Allergy Mild Unknown Verified 04/06/25 14:28 allergy reaction levofloxacin (From Levaquin) Allergy Difficulty Verified 04/06/25 14:28 Breathing pneumococcal vaccine Allergy Unknown Verified 04/06/25 14:28 allergy reaction sulfamethoxazole (From Allergy Unknown Verified 04/06/25 14:28 Bactrim) allergy reaction trimethoprim (From Bactrim) Allergy Unknown Verified 04/06/25 14:28 allergy reaction sucralose (From SUCRALOSE AdvReac Severe breathing Verified 04/06/25 14:28 (FOOD/DRUG)) problems PFSH [facility] Disclaimer: The information contained in this section may have been updated after the patient was seen, as this information can be updated by other users. Medical History Right nephrolithiasis UTI (urinary tract infection) Ovarian cyst Hematuria Vaginal pruritus History of nephrolithotomy with removal of calculi Hyperparathyroidism Multiple thyroid nodules Asthma with exacerbation Syncopal episodes POSSIBLY DUE TO POTS Right flank pain Adnexal mass Septic shock Severe sepsis with acute organ dysfunction Cellulitis of right wrist Pneumonia Syncope Altered mental status Surgical History History of cardiac catheterization x2 History of loop recorder History of eye surgery History of cholecystectomy S/P right oophorectomy S/P hysterectomy History of tubal ligation Family History Other Alzheimer disease Bipolar 1 disorder Dementia Family history of diabetes mellitus type II Family history of myocardial infarction Lung cancer Lupus Social History (Updated 04/06/25 @ 12:34 by Keyanna Ga RN) Smoking Status: Never smoker second hand exposure: No alcohol intake: never substance use type: denies use current occupational status: unemployed and disabled Travel in the last 8 weeks?: None household members: spouse housing: house current occupational exposures/hazards: No caffeine: Yes Have you lived/traveled outside US in past 30 days?: No Contact w/someone who lives/traveled outside US past 30 days?: No Exposure to someone with infectious disease in past 14 days?: No Do you have a fever (greater than 100.4 F or 38 C)?: No Have you tested positive for COVID-19?: No Exposed to someone with COVID-19 in past 14 days?: No Do you have a sore throat?: No Do you have a cough?: No Do you have any weakness?: No Do you have any diarrhea?: No Are you experiencing any unusual bleeding?: No Do you have any muscle aches/pain?: No Do you have any abdominal pain?: No Are you experiencing loss of taste or smell?: No Other Medical History Have you received the Flu Vaccine for this season: No Have you received the Pneumonia Vaccine: No ROS Obtained: Yes Systems reviewed as appropriate & no additional complaints except as documented Per HPI Physical Exam General General appearance: alert, in no apparent distress and obese Head Head exam: atraumatic and normocephalic Eye Eye exam: Present PERRL and EOMI ENT ENT exam: Present mucous membranes moist Neck Neck exam: Present normal inspection and full ROM Chest Chest inspection: Present symmetric chest wall rise Respiratory Respiratory exam: Present normal lung sounds bilaterally; Absent respiratory distress, wheezes or stridor Cardiovascular Cardiovascular exam: Present regular rate and normal rhythm Abdominal Exam Abdominal exam: Present soft; Absent distention or tenderness Extremities Exam Extremities exam: Present full ROM Neurological Exam Neurological exam: Present alert and oriented X3; Absent motor sensory deficit Psychiatric Psychiatric exam: Present normal affect and normal mood Skin Skin exam: Present warm and dry Medical Decision Making Medical Records Medical records reviewed: Yes I reviewed the patient's medical records. Screening: Per USPSTF and CDC recommendations, given the prevalence of disease in our region, it is our hospital?s policy to screen for HIV and viral Hepatitis for all patients aged 18 and over and those with ongoing risk factors. Harjinder Inquiry Pt receiving controlled substance: No Vital Signs: 04/11/25 02:22 04/11/25 02:30 04/11/25 03:00 Temperature 98.4 F Temperature Source Oral Pulse Rate 87 89 Pulse Rate [Right Radial] 93 H Respiratory Rate 16 14 16 Blood Pressure 109/82 L 111/67 Blood Pressure [Right Arm] 131/82 Blood Pressure Mean 89 89 Blood Pressure Mean [Right Arm] 98 Blood Pressure Position [Right Arm] Supine 02 Sat by Pulse Oximetry 97 96 95 Oxygen Delivery Method Room Air 04/11/25 03:30 Temperature 97.7 F Temperature Source Pulse Rate 98 H Pulse Rate [Right Radial] Respiratory Rate 16 Blood Pressure 121/83 Blood Pressure [Right Arm] Blood Pressure Mean 95 Blood Pressure Mean [Right Arm] Blood Pressure Position [Right Arm] 02 Sat by Pulse Oximetry 95 Oxygen Delivery Method Lab Data Lab Results 04/11/25 02:17: VBG pH 7.45 H, VBG pCO2 38.5, VBG pO2 49.0 H, VBG HCO3 26.3, VBG Total CO2 27.5 H, VBG O2 Saturation 83.6 H, VBG Base Excess 2.3, VBG Lactic Acid 3.4 H 04/11/25 02:45: WBC 14.8 H, RBC 5.18, Hgb 14.6, Hct 44.9, MCV 86.7, MCH 28.2, MCHC 32.5, RDW 13.3, Plt Count 366, MPV 10.4, Neut % (Auto) 63.5, Lymph % (Auto) 28.1, Hudspeth % (Auto) 5.9, Eos % (Auto) 1.6, Baso % (Auto) 0.6, Neut # (Auto) 9.4 H, Lymph # (Auto) 4.2, Hudspeth # (Auto) 0.9, Eos # (Auto) 0.2, Baso # (Auto) 0.1, Sodium 134 L, Potassium 3.5, Chloride 95 L, Carbon Dioxide 31 H, Anion Gap 11.5, BUN 18 H, Creatinine 0.80, Estimated Creat Clear 69, Estimated GFR 76, Est GFR ( Amer) 92, Glucose 214 H, Calcium 10.0, Total Bilirubin 1.0, AST 43 H, ALT 42, Alkaline Phosphatase 99, Total Protein 8.3 H, Albumin 4.1, Globulin 4.2 H, Albumin/Globulin Ratio 1.0 L, Acetone Level None detected 04/11/25 02:45 04/11/25 02:45 Orders (Tests/Meds): ED MEDICATIONS Discontinued Medications Generic Name Dose Route Start Last Admin Trade Name Freq PRN Reason Stop Dose Admin Lactated Ringer's 500 mls @ 999 mls/hr 04/11/25 02:17 04/11/25 02:40 Lactated Ringer's 500ml IV 04/11/25 02:47 999 mls/hr .Q31M ONE Administration ORDERS Category Date Time Status Acetone, Serum (Rapid) Stat Lab 04/11/25 02:45 Completed CBC w/Auto Diff [Complete Blood Count Auto Diff] Stat Lab 04/11/25 02:45 Completed CMP [Comprehensive Metabolic Panel] Stat Lab 04/11/25 02:45 Completed VBG [Venous Blood Gas] Stat RT 04/11/25 02:17 Completed Medical Decision Narrative: In summary, this 49-year-old female with comorbidities described in the HPI not at goal therapy presents to the emergency department today with concerns of elevated blood sugar. On initial evaluation patient is hemodynamically stable, afebrile, GCS 15, no neurologic deficits, physical exam is overall very reassuring. Surgical site healing well. Differential diagnosis includes but is not limited to hyperglycemia, considered DKA or HHS but have low suspicion for these especially since patient's blood glucose is spontaneously resolving. With her history of complicated UTI considered working up urinary infection however her urinary symptoms are stable and unchanged and with her recent surgery she is likely to have blood and white blood cells in her urine which would complicate the interpretation and could lead to inappropriate treatment of UTI without actual presence of infection. Since she has very close follow-up for her urologic problems, will not perform UA at this time. Based on these concerns, I ordered serum labs. Patient received IV fluids for treatment. Labs personally reviewed demonstrate leukocytosis WBC 14.8, no anemia, normal platelets, VBG with pH 7.45, not acidotic, lactic on VBG is slightly elevated but patient is already being treated with IV fluids. I am not specifically concerned about the lactic at this time. Patient has mild prerenal azotemia being treated with IV fluids, anion gap normal, no acetone. Patient has no evidence of DKA or HHS. On reassessment she is resting comfortably, asymptomatic from the concerns that brought her in. FSBG 201. I believe she is appropriate for discharge at this time. Patient is comfortable with this plan and is looking forward to going home and resting. Patient was given instructions on symptomatic monitoring and management, follow up instructions with PCP and urology, and return precautions for the emergency department. Patient indicated understanding and was discharged in stable condition. Critical Care Critical Care Time Critical Care Time: No
--- OUTSIDE RECORDS SUMMARY | 2025-04-11 02:34 | XMS_ITS | Continuity of Care Document ---
Author Organization [facility] Address [address] [place] [address] Care Team Providers Care Cath Laboratory Technician Name Role Phone ZAHRAA BENAVIDES Primary [...] and Address Organization Details Recorded Time Syncope 873210631 Active 2021 Malina Hernandez DO [address], [place], [address] , [facility] & [place] 2 15:33:04 Hypersomnia 30950682 Active 2021 Malina Hernandez DO [address], [place], [address] [facility] & [place] 2 15:34:08 Problem Notes None recorded. Procedures Surgical History Date Name Laterality Status Provider Name and Address Organization Details Recorded Time 09/25/20 23 Cystoscopy-Female completed Silvio Valdez MD [address] , [place], [address], [facility] & [place] 09/25/2023 15:26:11 04/04/20 22 Date of Last Pap Smear completed Vandana Harris [facility] & [place] 10/03/2022 14:31:43 10/28/19 22 Machinist Apprentice Surgery completed Vandana ELLER - [facility] - [place] & [place] 10/03/2022 14:45:45 10/28/19 17 Cholecystectomy completed Vandana ELLER - [facility] & [place] 10/03/2022 14:32:27 10/28/19 14 Other completed Vandana ELLER - [facility] & [place] 10/03/2022 14:44:51 cardiac catheterization completed Vandana ELLER - [facility] & [place] 10/03/2022 14:46:31 strabismus surgery completed Vandana ELLER - [facility] & [place] 10/03/2022 14:55:15 Imaging Results None recorded. Procedure Notes None recorded. Medical Equipment None Reported. Allergies Allergen ID Allergen Name Allergen Category Reaction Reaction Severity Criticality Documentation Date Start Date Code Code System Note Provider Name and Address Organization Details Recorded Time 61243 aspirin medicatio n chest pain wheezing moderate severe Not available 10/02/2022 1191 RxNorm Vandana catherine, [place] - [facility] & [place] 09:22:42 92541 Bactrim medicatio n arthralgi a (joint pain) muscle cramps severe severe Not available 10/02/2022 44874 9 RxNorm Vandana catherine, [place] - [facility] & [place] 09:22:49 13431 insect venom environme nt confusion cough dizziness fever flushing headache wheezing moderate moderate moderate mild moderate moderate moderate Not available 10/02/2022 84298 UNK Vandana catherine, [place] - [facility] & [place] 09:23:13 20860 Pneumococ georges vaccine Not available anaphylax is chest pain facial swelling nausea rash wheezing moderate moderate moderate moderate moderate moderate Not available 10/02/2022 18481 7 RxNorm Vandana Steven null, [place] - [facility] & [place] 09:23:25 45289 rosuvasta tin medicatio n eye swelling facial swelling respirato ry distress moderate moderate moderate Not available 10/02/2022 47956 2 RxNorm [place] - [facility] - [place] & [place] 2 09:23:35 Medications Name Sig Start Date [...] % 60 /min 97.7 [degF] 49.6 kg/m2 780926. 86 g 119 mm[Hg] 79 mm[Hg] Bianca Smith [facility] & [place] 13:31:54 Social History Question Answer Notes LastModified by Organizat ion Details LastModified Time Tobacco Smoking Status [facility] [place] 10/03/2022 14:32:09 Do You Have An Advance [...] Are You Currently In School? No MASTERS [email or web address] Information not available 09/25/2023 Sex: Female Functional Status Question Answer Note LastModified by Organizat ion Details LastModified Time Do you use any illicit or recreational drugs? No Information not available 10/03/2022 What is your level of alcohol consumption? 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 Occasional Information not available 10/03/2022 Mental Status Question Answer Note LastModified by Organization D etails LastModified Time Do you feel stressed (tense, restless, nervous, or anxious, or unable to sleep at night)? [id number] Information not available 10/03/2022 Family History Relationship [...] SNOMED-CT Code Diagnosis ICD10 Code Diagnosis Note [id number] [facility] [address] 02/23/2025 13:48:33 02/23/2025 14:17:11 Recurrent urinary tract infection 511389706 N39.0 Will check lab work. Will send urine off for a culture. Will see patient back in 1 week. 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 Patient will follow up in 2 weeks. Call the office if anything persists or worsens. 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 Urine culture results received. Patient denies any fever. She is scheduled to have surgery to remove her stone on . Marilou David, CRISIS MANAGER [address], [place], [address], [place] - [facility] - [place] & [place] 03/02/2025 13:35:40 OBGyn Episode No OBEpisode recorded.
--- OUTSIDE RECORDS SUMMARY | 2025-04-11 02:34 | XMS_ITS | Referral Summary ---
Author Organization [facility] Address [address] [place] [address] Care Team Providers Care Experimental Aircraft Mechanic Name Role Phone Juarez Griffin MD Primary [...] place to sleep or slept in a retirement (including now)? No 12/27/2023 Utilities Answer Date [...] your living situation today? I have a [facility] place to live 12/27/2023 Think about [...] Do you speak a language other than [place]ese at [facility]? No 12/27/2023 Do you want help [...] on file Medical Devices Implanted Type Area Ethnic Studies Professor Device Identifier Shelf Expiration Date Model / Serial / Lot Loop Recorder LOOP RECORDER Left: Chest Insurance [facility] Advance Directives For more information, please contact: [phone] * Full Code (Latest Code Status on File) Date Activated Date Inactivated Comments 12/27/2023 3:21 AM 12/30/2023 2:53 PM -Attempt Resus citation if person has no pulse and is not breathing. -If no pulse or not breathing attempt CPR/CODE. -Call Rapid Response if patient is in distress. Care Teams Experimental Aircraft Mechanic Relationship Specialty Start Date End Date Juarez Griffin MD [address] [place] [address] [place] [id number] PCP - General General Internal Medicine 12/30/23
--- OUTSIDE RECORDS SUMMARY | 2025-04-11 02:34 | XMS_ITS | Continuity of Care Document ---
Author Organization [facility] Infectious Disease -105 Address [address] [place] [address] Care Team Providers Care Poultry Farmer Name Role Phone SHERI BENAVIDESGHT Primary Care Provider Assessment No assessment recorded. Plan of Treatment Reminders Order Date Submit Date Provider Last Modified By Organization Details Last Modified Time Details Appointments None recorded. Lab urinalysis, dipstick [address] Infectious Disease -105, [address] [facility] [address], [place], [address], 14:18:52 CBC w/ diff 2024 025 [facility] (Registration ), [address] [facility], [place], [address], 16:11:55 CMP, serum or plasma 2024 025 [facility] (Registration ), [address] [facility], [place], [address], 5 15:39:03 ESR (erythrocyt e sedimentati on rate), blood [address] (Registration ), [address] [facility], [place], [address], 5 08:54:47 C-reactive protein, quantitativ e, serum or plasma 2024 025 [email or web address] [facility] (Registration ), [address], [place], [address], 08:54:48 culture, urine 2024 025 [facility], [address], [address], [place], [address], 19:09:52 Referral None recorded. Procedures None recorded. Surgeries None recorded. Imaging None recorded. Medication Orders None recorded. Patient TargetsNo targets recorded. Patient InstructionsNo instructions recorded. Reason for Referral None Reported. Results Created Date Observation Date Name Description Value Unit Range Abnormal Flag Note LastModifiedBy Organization Detail LastModifiedTime 02/24/2002/23/2025 urina lysis , dipst ick Leukocytes (reference range) trace Not Available [facility] Infectious Disease -[facility] [address] [facility] [address], [place], [address], 02/23/2025 14:16:48 02/24/20 25 02/23/2025 urina lysis , dipst ick Nitrite (reference range:) negati ve Not Available [facility] Infectious Disease -[facility] [address], [place], [address], 02/23/2025 14:16:48 02/24/20 25 02/23/2025 urina lysis , dipst ick Urobilinogen (reference range) 0.[address] Not [address] [facility] Infectious Disease -[facility] [address], [place], [address], 02/23/2025 14:16:48 02/24/20 25 02/23/2025 urina lysis , dipst ick Protein (reference range) negati ve Not Available [facility] Infectious Disease -[facility] [address] [facility] [address], [place], [address], 02/23/2025 14:16:48 02/24/20 25 02/23/2025 urina lysis , dipst ick pH (reference range 5-8.5) 6.0 Not Available [place] [address] [address] [facility] [address], [place], [address], 02/23/2025 14:16:48 02/24/20 25 02/23/2025 urina lysis , dipst ick Blood (reference range:) small Not Available [place] [address] [address] [facility] [address], [place], [address], 02/23/2025 14:16:48 02/24/20 25 02/23/2025 urina lysis , dipst ick Specific Avenel (reference range) 1.015 Not Available [place] [address] [address] [facility] [address], [place], [address], 02/23/2025 14:16:48 02/24/20 25 02/23/2025 urina lysis , dipst ick Ketone (reference range) negati ve Not Available [place] [address] [address] [facility] [address], [place], [address], 02/23/2025 14:16:48 02/24/20 25 02/23/2025 urina lysis , dipst ick Bilirubin (reference range) negati ve Not Available [place] [address] [address] [facility] [address], [place], [address], 02/23/2025 14:16:48 02/24/20 25 02/23/2025 urina lysis , dipst ick Glucose (reference range) 500 Not Available [place] [address] [address] [facility] [address], [place], [address], 02/23/2025 14:16:48 02/24/20 25 02/23/2025 urina lysis , dipst ick Color (reference range: yellow-brown ) Dark Yellow Not Available [facility] Infectious Disease -[address], [place], [address], 02/23/2025 14:16:48 Result Notes None recorded. Problems Name Problem SNOMED Code Status Onset Date Resolution Date Notes Provider Name and Address Organization Details Recorded Time Syncope 984201805 Active 2021 Malina Hernandez DO [address] [facility], [place], [address] , [place] - [facility] - [place] & [place] 15:33:04 Hypersomnia 92387036 Active 2021 Malina Hernandez DO [address] [facility], [place], [address] , [place] [facility] [place] & [place] 15:34:08 Problem Notes None recorded. Procedures Surgical History Date Name Laterality Status Provider Name and Address Organization Details Recorded Time 09/25/20 23 Cystoscopy-Female completed Silvio Valdez MD [address] [facility], [place], [address], [place] - [facility] - [place] & [place] 09/25/2023 15:26:11 04/04/20 22 Date of Last Pap Smear completed Vandana Dalla [place] [facility] [place] 10/03/2022 14:31:43 10/28/19 22 Quality Assurance Intern Surgery completed Vandana Dalla [place] [facility] [place] 10/03/2022 14:45:45 10/28/19 17 Cholecystectomy completed Vandana Dalla [place] [facility] 10/03/2022 14:32:27 10/28/19 14 Other completed Vandana Dalla [place] [facility] 10/03/2022 14:44:51 cardiac catheterization completed Vandana Dalla [place] [facility] [place] 10/03/2022 14:46:31 strabismus surgery completed Vandana Dalla [place] [facility] [place] 10/03/2022 14:55:15 Imaging Results None recorded. Procedure Notes None recorded. Medical Equipment None Reported. Allergies Allergen ID Allergen Name Allergen Category Reaction Reaction Severity Criticality Documentation Date Start Date Code Code System Note Provider Name and Address Organization Details Recorded Time 53335 aspirin medicatio n chest pain wheezing moderate severe Not available 10/02/2022 1191 RxNorm [facility] catherine[facility] [place] 2 09:22:42 91596 Bactrim medicatio n arthralgi a (joint pain) muscle cramps severe severe Not available 10/02/2022 50621 9 RxNorm Vandana catherine, RAFITA DARLING [facility] & [place] 2 09:22:49 26099 insect venom environme nt confusion cough dizziness fever flushing headache wheezing moderate moderate moderate mild moderate moderate moderate Not available 10/02/2022 05028 UNK Vandana catherine, RAFITA Shea [facility] & [place] 2 09:23:13 84587 Pneumococ georges vaccine Not available anaphylax is chest pain facial swelling nausea rash wheezing moderate moderate moderate moderate moderate moderate Not available 10/02/2022 44118 7 RxNorm Vandana catherine, RAFITA DARLING [facility] & [place] 2 09:23:25 51787 rosuvasta tin medicatio n eye swelling facial swelling respirato ry distress moderate moderate moderate Not available 10/02/2022 22384 2 RxNorm Vandana catherine, RAFITA DARLING [facility] & [place] 2 09:23:35 Medications Name Sig [...] % 80 /min 98.6 [degF] 49.6 kg/m2 494885. 86 g 116 mm[Hg] 100 mm[Hg] Bianca Smith [place] - [facility] - [place] & [place] 5 13:59:18 Social History Question Answer Notes LastModified by Blyk Details LastModified Time Tobacco Smoking Status Never Smoker Vandana Harris [place], [place] [facility] [place] & [place] 10/03/2022 14:32:09 Do You Have An Advance Directive? No Information not available 10/03/2022 Are You Blind Or Do You Have Difficulty Seeing? No Information not available 10/03/2022 What Was The Date Of Your Most Recent Tobacco Screening? 09/17/2022 Information not available 10/03/2022 Do You Have Any Pets? Yes [email or web address] Information not available 09/25/2023 Are You Passively Exposed To Smoke? No Information not available 10/03/2022 Are You Currently In School? No MASTERS Information not available 09/25/2023 Sex: Female Functional Status Question Answer Note LastModified by Blyk Details LastModified Time Do you use any illicit or recreational drugs? No Information not available 10/03/2022 What is your level of alcohol consumption? 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 Occasional Information not available 10/03/2022 Mental Status Question Answer Note LastModified by Organization D etails LastModified Time Do you feel stressed (tense, restless, nervous, or anxious, or unable to sleep at night)? [id number] Information not available 10/03/2022 Family History Relationship [...] SNOMED-CT Code Diagnosis ICD10 Code Diagnosis Note [id number] Marilou Herbert in, CLAY MA[employer] [facility] Infectiou s Disease -[address] [place] [address] 02/23/2025 13:48:33 02/23/2025 14:17:11 Recurrent urinary tract infection 541702377 N39.0 Will check lab work. Will send urine off for a culture. Will see patient back in 1 week. Health Concerns Section Related Observation LastModified by Organization Detai ls LastModified Time None Recorded Concern Status LastModified by Organization Details LastModified Time None Recorded Payers Encounter Date Sequence Insurance Name Policy Number Policy Valdivia Covered Member ID Valdivia Member ID Guarantor Name 02/23/2025 1 [facility] (MEDICAID HMO) Lissystas Valdez [id number] Lissy Valdez Notes Date Note Type Note [...] 2025. Marilou David, PREETI [address], [place], [address], [facility] - [place] & [place] 02/24/2025 10:59:38 OBGyn Episode No OBEpisode recorded.
--- OUTSIDE RECORDS SUMMARY | 2025-04-11 02:34 | XMS_ITS | Clinical Summary ---
Author Organization [employer] Address [address] [place] [address] Care Team Providers Care Flight Technician Name Role Phone Juarez Griffin MD Primary Care Provider [phone] Allergies Active Allergy Reactions Criticality Noted Date [...] place to sleep or slept in a senior care (including now)? No 12/27/2023 Utilities Answer Date [...] your living situation today? I have a [facility] place to live 12/27/2023 Think about [...] Do you speak a language other than [facility] at [facility]? No 12/27/2023 Do you want help [...] Completed 10/30/2023, Medical Devices Implanted Type Area Novelty Printing Machine Operator Device Identifier Shelf Expiration Date Model / Serial / Lot Loop Recorder LOOP RECORDER Left: Chest Insurance [employer] [facility] Advance Directives For more information, please contact: [phone] * Full Code (Latest Code Status on File) Date Activated Date Inactivated Comments 12/27/2023 3:21 AM 12/30/2023 2:53 PM -Attempt Resus citation if person has no pulse and is not breathing. -If no pulse or not breathing attempt CPR/CODE. -Call Rapid Response if patient is in distress. Care Teams Flight Technician Relationship Specialty Start Date End Date Juarez Griffin MD [address] [place] [address] [place] [address] PCP - General General Internal Medicine 12/30/23
--- OUTSIDE RECORDS SUMMARY | 2025-04-11 02:34 | XMS_ITS | Data Portability ---
Author Organization [facility] [place] [facility] [place] Alejandro ADMIN Address [address] [place] [id number] Care Team Providers Care Clinical Director Name Role Phone ZAHRAA BENAVIDES Primary Care Provider Assessment Encounter Date Assessment Date Assessment LastModified by Organization Details LastModified Time 08/07/2023 08/07/[address] scan images onto our system. Will review to determine the degree of stone burden bilaterally in the kidneys. Will also plan cystoscopy and pelvic exam in the office in the near future. [email or web address] Not available 08/07/2023 15:34:46 09/25/2023 09/25/2023 I [...] in 6 months with KUB and UA. [email or web address] Not available 09/25/2023 15:29:09 Plan of Treatment Reminders Order Date Submit Date Provider Last Modified By Organization Details Last Modified Time Details Appointments None recorded. Lab urinalysis, dipstick 2024 025 [email or web address] [facility] -105, [address], [place], [address], 5 14:18:52 CBC w/ diff 2024 025 [facility] (Registration ), [address], [place], [address], 5 16:11:55 CMP, serum or plasma 2024 025 [facility] (Registration ), [address], [place], [address], 5 15:39:03 ESR (erythrocyt e sedimentati on rate), blood [address] (Registration ), [address] [facility], [place], [address], 5 08:54:47 C-reactive protein, quantitativ e, serum or plasma [address] (Registration ), [address], [place], [address], 5 08:54:48 culture, urine 2024 025 [place] [facility], [address], [address], [place], [address], 5 19:09:52 urinalysis, dipstick 2022 023 [email or web address] [facility], [address], [address], [place], [address], 3 16:08:29 Referral None recorded. Procedures None [...] at: [facility] n [address] [place] [address] 1269 Lab Direc tor: Los carson PhD, Phone : [phone] Not Available [facility] ([facility]) [address] [facility], [place], [address], 04/03/2023 10:13:10 04/02/20 23 04/03/2023 FSH FSH, serum 5.4 mIU/m L Adult Femal e: Folli cular phase 3.5 - 12.5 Ovula tion phase 4.7 - 21.5 Lutea l phase 1.7 - 7.7 Postm enopa usal 25.8 - 134.8 Perfo rmed at: [facility] n [address] [place] [address] Lab Direc tor: Los carson PhD, Phone : [phone] Not Available [facility] ([facility]) [address] [facility], [place], [address], 04/03/2023 10:14:16 08/07/20 23 08/07/2023 urina lysis , dipst ick Leukocytes (reference range) trace Not Available [facility] [address] [place] [address], [address], 08/07/2023 15:15:15 08/07/2008/07/2023 urina lysis , dipst ick Nitrite (reference range:) negati ve Not Available [facility] [address], [place], [address], 08/07/2023 15:15:15 08/07/20 23 08/07/2023 urina lysis , dipst ick Urobilinogen (reference range) 0.2 Not Available [facility] [address] [place] [address] [address], [place], [address], 08/07/2023 15:15:15 08/07/2008/07/2023 urina lysis , dipst ick Protein (reference range) negati ve Not Available [facility] [address], [place], [address], 08/07/2023 15:15:15 08/07/2008/07/2023 urina lysis , dipst ick pH (reference range 5-8.5) 6.0 Not Available [facility] [address], [place], [address], 08/07/2023 15:15:15 08/07/2008/07/2023 urina lysis , dipst ick Blood (reference range:) small Not Available [facility] [address] [place] [address] [address], [place], [address], 08/07/2023 15:15:15 08/07/2008/07/2023 urina lysis , dipst ick Specific [place] (reference range) 1.015 Not Available [facility] [address], [place], [address], 08/07/2023 15:15:15 08/07/2008/07/2023 urina lysis , dipst ick Ketone (reference range) negati ve Not Available [address], [place], [address], 08/07/2023 15:15:15 08/07/2008/07/2023 urina lysis , dipst ick Bilirubin (reference range) negati ve Not Available [address], [place], [address], 08/07/2023 15:15:15 08/07/20 23 08/07/2023 urina lysis , dipst ick Glucose (reference range) 250 Not Available [facility] [address], [place], [address], 08/07/2023 15:15:15 08/07/20 23 08/07/2023 urina lysis , dipst ick Color (reference range: yellow-brown ) Yellow Not Available [facility] [address], [place], [address], 08/07/2023 15:15:15 02/24/20 25 02/23/2025 CBC AUTO W DIFF WBC 11.3 K/uL 4.0-10 .5 high Not Available [facility] ([facility]) [address] [facility], [place], [address], 02/23/2025 15:02:28 02/24/20 25 02/23/2025 CBC AUTO W DIFF RBC 5.7 M/mm3 4.2-6. 4 Not Available [facility] ([facility]) [address], [place], [address], 02/23/2025 15:02:28 02/24/20 25 02/23/2025 CBC AUTO W DIFF HGB 15.8 gm/dL 12.5-1 6.0 Not Available [facility] ([facility]) [address] [facility], [place], [address], 02/23/2025 15:02:28 02/24/20 25 02/23/2025 CBC AUTO W DIFF HCT 48.8 % 37.0-4 7.0 high Not Available [facility] ([facility]) [address], [place], [address], 02/23/2025 15:02:28 02/24/20 25 02/23/2025 CBC AUTO W DIFF MCV 86.4 fL 78-100 Not Available [facility] ([facility]) [address], [place], [address], 02/23/2025 15:02:28 02/24/20 25 02/23/2025 CBC AUTO W DIFF MCH 28.0 pg 27-31 Not Available [facility] ([facility]) [address], [place], [address], 02/23/2025 15:02:28 02/24/20 25 02/23/2025 CBC AUTO W DIFF MCHC 32.4 g/dL 32-36 Not Available [facility] ([facility]) [address], [place], [address], 02/23/2025 15:02:28 02/24/20 25 02/23/2025 CBC AUTO W DIFF RDW 13.7 % 11.5-1 4.0 Not Available [facility] ([facility]) [address], [place], [address], 02/23/2025 15:02:28 02/24/20 25 02/23/2025 CBC AUTO W DIFF platelet count 380 K/uL 150-45 0 Not Available [facility] ([facility]) [address], [place], [address], 02/23/2025 15:02:28 02/24/20 25 02/23/2025 CBC AUTO W DIFF MPV 10.3 fL 6-9.5 high Not Available [facility] ([facility]) [address], [place], [address], 02/23/2025 15:02:28 02/24/20 25 02/23/2025 CBC AUTO W DIFF neutrophil% 66.5 % 43-65 high Not Available [facility] ([facility]) [address], [place], [address], 02/23/2025 15:02:28 02/24/20 25 02/23/2025 CBC AUTO W DIFF lymphocyte% 24.3 % 20.5-4 5.5 Not Available [facility] ([facility]) [address], [place], [address], 02/23/2025 15:02:28 02/24/20 25 02/23/2025 CBC AUTO W DIFF monocyte% 6.0 % 5.5-11 .7 Not Available [facility] ([facility]) [address], [place], [address], 02/23/2025 15:02:02/24/20 25 02/23/2025 CBC AUTO W DIFF eosinophil% 2.3 % 0.9-2. 9 Not Available [facility] ([facility]) [address] [facility], [place], [address], 02/23/2025 15:02:28 02/24/20 25 02/23/2025 CBC AUTO W DIFF basophil% 0.6 % 0.2-1. 0 Not Available [facility] ([facility]) [address] [place], [address], 02/23/2025 15:02:28 02/24/20 25 02/23/2025 CBC AUTO W DIFF immature granulocytes % 0.3 % 0.0-0. 8 Not Available [facility] ([facility]) [address] [place], [address], 02/23/2025 15:02:28 02/24/20 25 02/23/2025 CBC AUTO W DIFF nucleated red blood cells % 0.0 % Not Available [facility] ([facility]) [address] [place], [address], 02/23/2025 15:02:28 02/24/20 25 02/23/2025 CBC AUTO W DIFF neutrophil# 7.5 K/uL 2.2-4. 8 high Not Available [facility] ([facility]) [address] [facility], [place], [address], 02/23/2025 15:02:28 02/24/20 25 02/23/2025 CBC AUTO W DIFF lymphocyte# 2.7 cell/ mcL 1.3-2. 9 Not Available [facility] ([facility]) [address], [place], [address], 02/23/2025 15:02:28 02/24/20 25 02/23/2025 CBC AUTO W DIFF monocyte# 0.7 cell/ mcL 0.3-0. 8 Not Available [facility] ([facility]) [address] [facility], [place], [address], 02/23/2025 15:02:28 02/24/20 25 02/23/2025 CBC AUTO W DIFF eosinophil# 0.3 cell/ mcL 0-0.2 high Not Available [facility] ([facility]) [address] [facility], [place], [address], 02/23/2025 15:02:28 02/24/20 25 02/23/2025 CBC AUTO W DIFF basophil# 0.1 cell/ mcL 0.0-1. 0 Not Available [facility] ([facility]) [address] [facility], [place], [address], 02/23/2025 15:02:28 02/24/20 25 02/23/2025 CBC AUTO W DIFF immature gramulocytes # 0.03 K/uL Not Available [facility] ([facility]) [address] [facility], [place], [address], 02/23/2025 15:02:28 02/24/20 25 02/23/2025 CBC AUTO W DIFF nucleated red blood cells # 0.00 K/uL Not Available [facility] ([facility]) [address] [facility], [place], [address], 02/23/2025 15:02:28 04/29/02/23/2025 CBC AUTO W DIFF manual differential NO Not Available [facility] ([facility]) [address], [place], [address], 02/23/2025 15:02:28 02/24/20 25 02/23/2025 COMP METAB OLIC PANEL sodium 138 mmol/ L 136-14 5 Not Available [facility] ([facility]) [address], [place], [address], 02/23/2025 15:39:03 02/24/20 25 02/23/2025 COMP METAB OLIC PANEL potassium 3.7 mmol/ L 3.6-5. 0 Not Available [facility] ([facility]) [address] , [place], [address], 02/23/2025 15:39:03 02/24/20 25 02/23/2025 COMP METAB OLIC PANEL chloride 98 mmol/ L 98-107 Not Available [facility] ([facility]) [address] , [place], [address], 02/23/2025 15:39:03 02/24/20 25 02/23/2025 COMP METAB OLIC PANEL carbon dioxide 26.8 mmol/ L 21.0-3 2.0 Not Available [facility] ([facility]) [address] , [place], [address], 02/23/2025 15:39:03 02/24/20 25 02/23/2025 COMP METAB OLIC PANEL anion gap 16.9 Not Available [facility] ([facility]) [address] [place], [address], 02/23/2025 15:39:03 02/24/20 25 02/23/2025 COMP METAB OLIC PANEL glucose 200 mg/dL 70-120 high Not Available [facility] ([facility]) [address], [place], [address], 02/23/2025 15:39:03 02/24/20 25 02/23/2025 COMP METAB OLIC PANEL BUN 12 mg/dL 7-18 Not Available [facility] ([facility]) [address], [place], [address], 02/23/2025 15:39:03 02/24/20 25 02/23/2025 COMP METAB OLIC PANEL creatinine 1.1 mg/dL 0.6-1. 3 Not Available [facility] ([facility]) [address], [place], [address], 02/23/2025 15:39:03 02/24/20 25 02/23/2025 COMP METAB [...] [facility] ([facility]) [address] , [place], [address], 02/23/2025 15:39:03 02/24/20 25 02/23/2025 COMP METAB OLIC PANEL osmolality (calculated) 293 mOsm/ kg 275-30 1 OSMOL ALITY IS A CALCU LATIO N UTILI ZING THE SERUM /PLAS MA SODIU M, GLUCO SE AND UREA NITRO GEN (BUN) LEVEL S. FOR THE MOST ACCUR ATE RESUL T A MEASU RED SERUM OSMOL ALITY IS SUGGE STED. Not Available [facility] ([facility]) [address], [place], [address], 02/23/2025 15:39:03 02/24/20 25 02/23/2025 COMP METAB OLIC PANEL total protein 8.1 g/dL 6.4-8. 2 Not Available [facility] ([facility]) [address] , [place], [address], 02/23/2025 15:39:03 02/24/20 25 02/23/2025 COMP METAB OLIC PANEL albumin 3.6 g/dL 3.4-5. 0 Not Available [facility] ([facility]) [address] , [place], [address], 02/23/2025 15:39:03 02/24/20 25 02/23/2025 COMP METAB OLIC PANEL globulin 4.5 Not Available [facility] ([facility]) [address], [place], [address], 02/23/2025 15:39:03 02/24/20 25 02/23/2025 COMP METAB OLIC PANEL alb/glob ratio 0.8 0.7-2 Not Available [facility] ([facility]) [address], [place], [address], 02/23/2025 15:39:03 02/24/20 25 02/23/2025 COMP METAB OLIC PANEL calcium 10.2 mg/dL 8.5-10 .5 Not Available [facility] ([facility]) [address], [place], [address], 02/23/2025 15:39:03 02/24/20 25 02/23/2025 COMP METAB OLIC PANEL bilirubin total 0.60 mg/dL 0.10-1 .00 Not Available [facility] ([facility]) [address] [place], [address], 02/23/2025 15:39:03 02/24/20 25 02/23/2025 COMP METAB OLIC PANEL AST (SGOT) 46 U/L 0-37 high Not Available [facility] ([facility]) [address], [place], [address], 02/23/2025 15:39:03 02/24/20 25 02/23/2025 COMP METAB OLIC PANEL ALT (SGPT) 78 U/L 0-65 high Not Available [facility] ([facility]) [address], [place], [address], 02/23/2025 15:39:03 02/24/20 25 02/23/2025 COMP METAB OLIC PANEL alk phosphatase 111 U/L 46-116 Not Available [facility] ([facility]) [address] [facility], [place], [address], 02/23/2025 15:39:03 02/24/20 25 02/23/2025 C-KARLI CTIVE PROTE IN (CRP) C-reactive protein, quant 2.0 mg/dL 0.05-0 .300 high Not Available [facility] ([facility]) [address] [facility], [place], [address], 02/23/2025 15:40:11 02/24/20 25 02/23/2025 SED RATE sed rate auto 9 0-20 Not Available [facility] ([facility]) [address] [facility], [place], [address], 02/23/2025 15:43:35 02/24/20 25 02/27/2025 URINE CULTU RE,CO MPREH ENSIV E urine culture,comp rehensive FINAL REPORT abnormal Not Available [facility] ([facility]) [address] [facility], [place], [address], 02/27/2025 19:09:52 02/24/20 25 02/27/2025 URINE CULTU [...] per mL Not Available [facility] ([facility]) [address] [facility], [place], [address], 02/27/2025 19:09:52 02/24/2002/27/2025 URINE CULTU RE,CO MPREH [...] rolin e Not Available [facility] ([facility]) [address] [facility], [place], [address], 02/27/2025 19:09:52 02/24/2002/27/2025 URINE CULTU RE,CO MPREH [...] R S Not Available [facility] ([facility]) [address] [facility], [place], [address], 02/27/2025 19:09:52 02/24/20 25 02/23/2025 urina lysis , dipst ick Leukocytes (reference range) trace Not Available [place] [address] [address], [place], [address], 02/23/2025 14:16:48 02/24/20 25 02/23/2025 urina lysis , dipst ick Nitrite (reference range:) negati ve Not Available [place] [address] [address] [facility] [address], [place], [address], 02/23/2025 14:16:48 02/24/20 25 02/23/2025 urina lysis , dipst ick Urobilinogen (reference range) 0.2 Not Available [place] [address] [facility] [address], [place], [address], 02/23/2025 14:16:48 02/24/20 25 02/23/2025 urina lysis , dipst ick Protein (reference range) negati ve Not Available [place] [address] [address] [facility] [address], [place], [address], 02/23/2025 14:16:48 02/24/20 25 02/23/2025 urina lysis , dipst ick pH (reference range 5-8.5) 6.0 Not Available [place] [address] [address] [facility] [address], [place], [address], 02/23/2025 14:16:48 02/24/20 25 02/23/2025 urina lysis , dipst ick Blood (reference range:) small Not Available [place] [address] [facility] [address], [place], [address], 02/23/2025 14:16:48 02/24/20 25 02/23/2025 urina lysis , dipst ick Specific [place] (reference range) 1.015 Not Available [place] [address] [facility] [address], [place], [address], 02/23/2025 14:16:48 02/24/20 25 02/23/2025 urina lysis , dipst ick Ketone (reference range) negati ve Not Available [place] [address] [facility] [address], [place], [address], 02/23/2025 14:16:48 02/24/20 25 02/23/2025 urina lysis , dipst ick Bilirubin (reference range) negati ve Not Available [place] [address] [facility] [address], [place], [address], 02/23/2025 14:16:48 02/24/20 25 02/23/2025 urina lysis , dipst ick Glucose (reference range) 500 Not Available [place] [address] [facility] [address], [place], [address], 02/23/2025 14:16:48 02/24/20 25 02/23/2025 urina lysis , dipst ick Color (reference range: yellow-brown ) Dark Yellow Not Available [place] [address] [facility] [address], [place], [address], 02/23/2025 14:16:48 Result Notes None recorded. Problems Name Problem SNOMED Code Status Onset Date Resolution Date Notes Provider Name and Address Organization Details Recorded Time Syncope 062906352 Active 2021 Malina Hernandez DO [address], [place], [address] , [facility] - [facility] [place] [facility] [place] 15:33:04 Hypersomnia 87731872 Active 2021 Malina Hernandez DO [address] [facility], [place], [address] , [place] - [facility] & [place] 15:34:08 Problem Notes None recorded. Procedures Surgical History Date Name Laterality Status Provider Name and Address Organization Details Recorded Time 09/25/20 23 Cystoscopy-Female completed Silvio Valdez MD [address] [facility], [place], [address], [place] - [facility] [place] [facility] [place] 09/25/2023 15:26:11 04/04/20 22 Date of Last Pap Smear completed Vandana Eugenioa [place] - [facility] - [place] & [place] 10/03/2022 14:31:43 10/28/19 22 Fagoter Surgery completed Vandana Dalla [place] - [facility] - [place] & [place] 10/03/2022 14:45:45 10/28/19 17 Cholecystectomy completed Vandana Dalla [place] - [facility] & [place] 10/03/2022 14:32:27 10/28/19 14 Other completed Vandana Dalla [place] - [facility] [place] [facility] [place] 10/03/2022 14:44:51 cardiac catheterization completed Vandana Dalla [place] - [facility] & [place] 10/03/2022 14:46:31 strabismus surgery completed Vandana Dalla [place] - [facility] [place] [facility] [place] 10/03/2022 14:55:15 Imaging Results None recorded. Procedure Notes None recorded. Medical Equipment None Reported. Allergies Allergen ID Allergen Name Allergen Category Reaction Reaction Severity Criticality Documentation Date Start Date Code Code System Note Provider Name and Address Organization Details Recorded Time 31749 aspirin medicatio n chest pain wheezing moderate severe Not available 10/02/2022 1191 RxNorm Vandana Eugenioa null, [place] - [facility] & [place] 09:22:42 40865 Bactrim medicatio n arthralgi a (joint pain) muscle cramps severe severe Not available 10/02/2022 67786 9 RxNorm Vandana Eugenioa null, [place] - [facility] & [place] 09:22:49 62271 insect venom environme nt confusion cough dizziness fever flushing headache wheezing moderate moderate moderate mild moderate moderate moderate Not available 10/02/2022 76662 UNK Vandana catherine, [facility] & [place] 2 09:23:13 36462 Pneumococ georges vaccine Not available anaphylax is chest pain facial swelling nausea rash wheezing moderate moderate moderate moderate moderate moderate Not available 10/02/2022 67008 7 RxNorm Vandana catherine, [facility] [place] [facility] & [place] 2 09:23:25 49400 rosuvasta tin medicatio n eye swelling facial swelling respirato ry distress moderate moderate moderate Not available 10/02/2022 12387 2 RxNorm Vandana catherine, [facility] & [place] 2 09:23:35 Medications Name Sig Start Date [...] % 80 /min 98.6 [degF] 49.6 kg/m2 359802. 86 g 116 mm[Hg] 100 mm[Hg] Bianca Smith [place] - [facility] 5 13:59:18 Date Recorded Body height Heart rate Oxygen saturation Oxygen saturation in Arterial blood by Pulse oximetry Heart rate Body temperature Body mass index (BMI) Body weight Systolic blood pressure Diastolic blood pressure Provider Name and Address Organization Details Last Updated DateTime 5 160.02 cm 60 /min 97 % 97 % 60 /min 97.7 [degF] 49.6 kg/m2 248119. 86 g 119 mm[Hg] 79 mm[Hg] Bianca ELLER - [facility] 5 13:31:54 Date Recorded Body height Body temperature Oxygen saturation Oxygen saturation in Arterial blood by Pulse oximetry Inhaled oxygen flow rate Heart rate Body mass index (BMI) Body weight Systolic blood pressure Diastolic blood pressure Provider Name and Address Organization Details Last Updated DateTime 3 157.48 cm 97.1 [degF] 98 % 98 % 2 L/min 89 /min 48.3 kg/m2 658190. 39 g 128 mm[Hg] 98 mm[Hg] Phillip Morrison [facility] & [place] 3 13:04:48 Date Recorded Body height Body mass index (BMI) Body weight Systolic blood pressure Diastolic blood pressure Provider Name and Address Organization Details Last Updated DateTime 08/07/2023 157.48 cm 49.4 kg/m2 513352.9 4 g 125 mm[Hg] 75 mm[Hg] Britney Yee [facility] & [place] 3 15:05:24 Date Recorded Body height Body mass index (BMI) Body weight Systolic blood pressure Diastolic blood pressure Provider Name and Address Organization Details Last Updated DateTime 09/25/2023 157.48 cm 51.2 kg/m2 672181.8 6 g 126 mm[Hg] 76 mm[Hg] Ioana Ayala [facility] & [place] 3 15:07:04 Social History Question Answer Notes LastModified by [employer] ion Details LastModified Time Tobacco Smoking Status Never Smoker [facility] [place] 10/03/2022 14:32:09 Do You Have An Advance Directive? No Information not available 10/03/2022 Are You Blind Or Do You Have Difficulty Seeing? No Information not available 10/03/2022 What Was The Date Of Your Most Recent Tobacco Screening? 09/17/2022 Information not available 10/03/2022 Do You Have Any Pets? Yes [email or web address] Information not available 09/25/2023 Are You Passively Exposed To Smoke? No Information not available 10/03/2022 Are You Currently In School? No [employer] [email or web address] Information not available 09/25/2023 Sex: Female Functional Status Question Answer Note LastModified by Organizat ion Details LastModified Time Do you use any illicit or recreational drugs? No Information not available 10/03/2022 What is your level of alcohol consumption? 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 Occasional Information not available 10/03/2022 Mental Status Question Answer Note LastModified by Organization D etails LastModified Time Do you feel stressed (tense, restless, nervous, or anxious, or unable to sleep at night)? [id number] Information not available 10/03/2022 Family History Relationship [...] SNOMED-CT Code Diagnosis ICD10 Code Diagnosis Note [id number] DO [facility] [address] [facility],[address] [place] [address] 10/03/2022 14:07:23 10/03/2022 15:38:25 Syncope [id number] R55 She has been experienci ng these stereotypi georges passing out episodes for five years. No definite witnessed convulsion s but some associated brief confusion afterwards .will order EEG to rule out neurologic causes of syncope Hypersomnia [id number] G47 .10 She describes some significan t episodes of pathologic al sleepiness . She will fall asleep without warning in the middle of talking. This is very infrequent but can be suggestive of narcolepsy . Will order PSG with MSLT to evaluate this in more detail. 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 [id number] Silivo Valdez MD [facility] [address] [place] [address],[address] [place] [address] 08/07/2023 14:35:57 08/07/2023 15:40:17 Recurrent urinary tract infection [id number] N39.0 Kidney stone [id number] N2 0.0 Chronic th oracic back pain [id number] 31600 M54.6 Microscopic hematuria 19 [id number] R31.29 [id number] Silvio Valdez MD [facility] [address] [place] [address],[address] [place] [address] 09/25/2023 14:26:57 09/25/2023 15:25:02 Recurrent urinary tract infection [id number] N39.0 Kidney stone [id number] N2 0.0 Microscopic hematuria 19 [id number] R31.29 [id number] [facility] [address] [facility] [address] [place] [address] 02/23/2025 13:48:33 02/23/2025 14:17:11 Recurrent urinary tract infection [id number] N39.0 Will check lab work. Will send urine off for a culture. Will see patient back in 1 week. 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 Patient will follow up in 2 weeks. Call the office if anything persists or worsens. 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 [id number] [facility] 02/27/2025 1 [facility] (MEDICAID HMO) [facility] [id number] [facility] Notes Date Note Type Note [...] time. Patient states she is seen her career specialist for this, was told it is possibly a lymphocele. Micheline Lackey MD [address] [facility], [place], [address], [facility] - [place] & [place] 04/18/2023 12:50:43 08/07/2023 text/html Location: Histor y [...] status post hysterectomy. Silvio Valdez MD [address] [facility], [place], [address], [facility] - [place] & [place] 08/07/2023 15:35:17 09/25/2023 text/html Patient returns to [...] hysterectomy. Silvio Valdez MD [address], [place], [address], [facility] & [place] 09/25/2023 15:30:10 02/23/2025 text/html patient presents to [...] 2025. Marilou David APRN [address], [place], [address], [facility] & [place] 02/24/2025 10:59:38 03/02/2025 text/html patient presents to clinic for follow up. Urine culture results received. Patient denies any fever. She is scheduled to have surgery to remove her stone on . Marilou David APRN [address], [place], [address], [facility] - [facility] & [place] 03/02/2025 13:35:40 OBGyn Episode No OBEpisode recorded.
--- OUTSIDE RECORDS SUMMARY | 2025-04-11 02:34 | XMS_ITS | Clinical Summary ---
Author Organization [facility] Address [address] [place] [address] Care Team Providers Care Canvas Baster Name Role Phone Juarez Griffin MD Primary Care Provider [phone] Karen Naqvi DO Unavailable [phone] Allergies Active Allergy Reactions Criticality Noted Date [...] Team Description 03/12/2025 Orders Only External Location [address] [place] [address] Provider, External from Last 3 Months Immunizations [...] drink first t yue in the morning (EYE-CAN STERILIZER) to steady your nerves or to get [...] PPSV23) 11/01/2021 09/06/2021 [facility]-Breast Cancer Screening 2023 [id number] Vaccine ( - season) 2024 10/07/2022, 08/21/2021 [...] this topic Medical Devices Implanted Type Area Encoding Clerk Device Identifier Shelf Expiration Date Model / Serial / Lot Stent Ureteral Double Pigtail Pos 6fr 24cm - [id number] - [id number] Implanted:Qty: 1 on 04/11/2024 by Harvey Macdonald MD at [facility] Stent Right: [id number] 01/02/2026 [id number] / [id number] / [id number] Loop Recorder-2016 Implanted:04/28 (Quantity not on file) Chest Latimer Education [id number] / / Procedures Procedure Name Priority [...] Reactive Non Reactive 04/10/2024 7:25 PM EDT [facility] Comment:Screening for HIV 1 & 2 antibodies, and P24 antigen is NONREACTIVE. No confirmatory testing is required. Blood Venous blood specimen / Unknown Venipuncture / Unknown 04/10/2024 6:11 PM EDT 04/10/2024 6:27 PM EDT us Susan Mcclure MD LAB BLOOD ORDERABLES Final Re sult Performing Organization Address [facility] Co de Phone Number [facility]ARE [facility] [address] [place] [address] * Hepatitis C Antibody - ED (04/10/2024 6:11 PM EDT) Hepatitis C Antibody Negative Negative 04/10/2024 7:24 PM EDT [facility] Blood Venous blood specimen / Unknown Venipuncture / Unknown 04/10/2024 6:11 PM EDT 04/10/2024 6:26 PM EDT us Susan Mcclure MD LAB BLOOD ORDERABLES Final Re sult Performing Organization Address [facility] de Phone Number [facility]ARE [facility] [address] [place] [address] * (ABNORMAL) Hemoglobin A1c (04/10/2024 6:11 PM EDT) Pathologist [facility] Hemoglobin A1c 6.3(H) <5.7 % 04/10/2024 9:31 [...] Adults <6.0% Children and Adolescents <7.5% Source: [place] [employer]. Standards of medical care in diabetes,2017. Diabetes Care.2017:40 (suppl 1):S1-S135. HbA1c assay performed by an ion-exchange chromatography method that is certified traceable to the [facility]. us Joselito Berrios MD LAB BLOOD ORDERABLES Final Re sult [facility] [address] [place] [address] from Last 3 Months or Most Recently Relevant to Health Maintenance Additional Health Concerns Infection Onset Date Last Indicated ESBL Comment:+ 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 Source: [facility]. This patient will require contact precautions indefinitely. 04/01/2024 Insurance [employer] MEDICAID Advance Directives * Full Code (Latest Code Status on File) Date Activated Date Inactivated Comments 04/11/2024 10:12 AM 04/12/2024 3:22 PM Question Answer Comments Patient has decision-making capacity? Yes Care Teams Canvas Baster Relationship Specialty Start Date End Date Juarez Griffin MD [address] [facility] [address] [place] [address] PCP - General 03/10/21 Karen Naqvi DO [address] [facility] [address] [place] [address] Referring Physician Obstetrics and Gynecology 09/23/24
[2025-04-11] MEDS: RINGERS SOLUTION,LACTATED 500 ML 999 ML IV (02:40)
[2025-04-11 03:00] VITALS: BP 111/67; PULSE 89; RESP 16; O2SAT 95
[2025-04-11 03:06] LABS: VBG Base Excess 2.3 mmol/L (-2.4-2.3); VBG HCO3 26.3 mmol/L (23-30); VBG Oxygen Saturation 83.6 % (50-70); VBG PCO2 38.5 mmol/L (35-51); VBG PH 7.45 mmol/L (7.31-7.41); VBG Total CO2 27.5 mmol/L (23-27)
[2025-04-11 03:06] LABS: Acetone, Serum (Rapid) None Detected (None Detect)
[2025-04-11 03:08] LABS: Alanine Aminotransferase 42 U/L (12-78); Albumin Level 4.1 g/dl (3.5-5.0); Alkaline Phosphatase 99 U/L (38-126); Anion Gap 11.5 mEq/L (5-15); Aspartate Amino Transferase 43 U/L (14-36); Blood Urea Nitrogen 18 mg/dl (7-17); Carbon Dioxide 31 mmol/L (22.0-30.0); Chloride 95 mmol/L (98-107); Creatinine Clearance Estimated 69 mL/min (50-200); Estimated Glomerular Filt Rate 76 ml/min (>60); GFR (African American) 92 ML/MIN (>60); Globulin 4.2 g/dL (1.3-3.2); Glucose 214 mg/dl (74-100); Potassium 3.5 mmoL/L (3.5-5.1); Sodium 134 mmol/L (136-145); Total Protein,Serum 8.3 g/dl (6.3-8.2)
[2025-04-11 03:08] LABS: Lactate Venous 3.4 mmol/L (0.4-2.0)
[2025-04-11 03:10] LABS: Basophils # 0.1 K/mm3 (0-0.2); Basophils % 0.6 % (0.1-2.0); Eosinophils # 0.2 Kmm3 (0.0-0.4); Eosinophils % 1.6 % (0.1-12.0); Hematocrit 44.9 % (37.0-47.0); Hemoglobin 14.6 g/dL (12.2-16.2); Immature Granulocytes # 0.05 10^3uL; Immature Granulocytes % 0.3 %; Lymphocytes # 4.2 K/mm3 (0.7-4.5); Lymphocytes % 28.1 % (10-50); Mean Corpuscular HGB Conc 32.5 g/dL (31.8-35.4); Mean Corpuscular Hemoglobin 28.2 pg (27.0-31.2); Mean Corpuscular Volume 86.7 fl (81-99); Mean Platelet Volume 10.4 fl (7.4-10.4); Monocytes # 0.9 K/mm3 (0.1-1.0); Monocytes % 5.9 % (1.7-9.3); Neutrophils # 9.4 K/mm3 (1.8-7.8); Neutrophils % 63.5 % (37.0-80.0); Nucleated Red Blood Cells # 0 10^3/uL; Nucleated Red Blood Cells % 0 %; Platelet Count 366 K/mm3 (142-424); Red Blood Count 5.18 M/mm3 (4.20-5.40); Red Cell Distribution Width 13.3 % (11.5-17.5); Red Cell Distribution Width-SD 41.8 fL; White Blood Count 14.8 K/mm3 (4.8-10.8)
[2025-04-11 03:30] VITALS: BP 121/83; PULSE 98; RESP 16; TEMP 36.5; O2SAT 95
--- NOTE | 2025-04-11 03:38 | PC.NURSE ---
pt's blood sugar at this time was 201
[2025-04-11 03:39] VITALS: BP 121/83; PULSE 95; RESP 16; TEMP 36.5; O2SAT 98
[2025-04-11 07:07] LABS: Reflex Lactic Add Lactic Reflex
== END 2025-04-11 03:43 | disposition home or self-care (01) ==
PROVIDERS: Emergency Provider Emergency Medicine; PCP Internal Medicine
DX: R73.9 Hyperglycemia, unspecified (principal)
CPT/HCPCS: 80053; 82009; 82803; 85025; 96360; 96361; 99284; J7120

== ENCOUNTER 2025-04-15 16:44 | Outpatient (CLI) | payer OTHER, SELFPAY ==
[2025-04-15 16:55] LABS: Microscopic, Urine URINE MICROSCOPIC (MICROSCOPIC)
[2025-04-15 17:29] LABS: Appearance,Urine CLEAR (Clear); Bilirubin,Urine Negative (Negative); Blood, Urine Negative (Negative); Color,Urine YELLOW (Yellow); Glucose,Urine (UA) Negative (Negative); Ketones,Urine Negative (Negative); Leukocyte Esterase,Urine TRACE (Negative); Nitrate,Urine Negative (Negative); Protein,Urine Negative (Negative)
[2025-04-15 19:08] LABS: RBC,Urine Occasional #/hpf (0-3)
[2025-04-15 19:09] LABS: Bacteria,Urine 1+ /lpf
--- OUTSIDE RECORDS SUMMARY | 2025-04-19 09:48 | XMS_ITS | Clinical Summary ---
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 Name Role Phone Zofia Perkins Unavailable Unavailable Conditions or Problems Problem Name Problem Code Onset Date Status Entry Date Provider Comment Standard Description Annotate Acute Pyelonephritis 33360169 (SNOMED CT) 01/07 Active 01/07 Malina Ames Acute pyelonephritis Obstructive uropathy with infection N13.6 (ICD-10-C M) 01/07 Active 01/07 Malina Ames Pyonephrosis Neutrophilic leukemoid reaction D72.823 (ICD-10-C M) 01/07 Active 01/07 Malina Ames Leukemoid reaction COPD 92102189 (SNOMED CT) 01/07 Active 01/07 Malina Ames Chronic obstructive pulmonary disease Morbid obesity due to excess calories E66.01 (ICD-10-C M) 01/07 Active 01/07 Malina Ames Morbid (severe) obesity due to excess calories DM Type II E11.9 (ICD-10-C M) 01/07 Active 01/07 Malina Ames Type 2 diabetes mellitus without complications Benign hypertensive heart disease with chronic diastolic heart failure (I50.32) 99505563 (SNOMED CT) 01/07 Active 01/07 Malina Ames Benign hypertension Medications Medication Instructions Start Date Stop Date Generic Name [facility] Provider FOSFOMYCIN TROMETHAMINE 3 GM PACK Take 1 packet by mouth as directed take 1 packet every 3-4 days (2 times weekly) fosfomycin tromethamine 81612789940 Calvin Villarreal MD PREDNISONE 20 MG TABS prednisone 70342765295 Milly Jabierbrianne VITAMIN C 500 MG CAPS twice a day ascorbic acid (vitamin c) 84640300021 Milly Mosquera HIPREX 1 GM TABS Take 1 tablet by mouth twice a day 02/18 methenamine hippurate 77158292018 Calvin Villarreal MD INDOMETHACIN 50 MG CAPS Take 1 capsule by mouth three times a day indomethacin 82951223090 Linda De Leon SUCRALFATE 1 GM TABS Take 1 tablet by mouth four times a day sucralfate 78234076882 Linda De Leon BUMETANIDE 2 MG TABS Take 1 tablet by mouth twice a day bumetanide 71185078432 Linda De Leon PRAVASTATIN SODIUM 10 MG TABS Take 1 tablet by mouth every night pravastatin 04693962091 Linda De Leon ENTRESTO 24-26 MG TABS Take 1 tablet by mouth twice a day sacubitril-valsa rtan 00614074074 Linda De Leon VENTOLIN HFA 108 (90 Base) MCG/ACT AERS Inhale 2 puff by mouth every four to six hours as needed albuterol sulfate 15501406354 Linda De Leon ADVAIR DISKUS 250-50 MCG/ACT AEPB Inhale 1 puff twice a day fluticasone propion-salmeter ol 44515295296 Linda De Leon OMEPRAZOLE 20 MG CPDR Take 1 capsule by mouth once a day omeprazole 80801127060 Linda De Leon METFORMIN HCL 500 MG TABS Take 1 tablet by mouth twice a day metformin 06300973942 Linda De Leon FARXIGA 10 MG TABS Take 10 mg by mouth once a day dapagliflozin propanediol 49704878291 Linda De Leon IBUPROFEN (IBUPROFEN) 800 MG TABS Take 1 tablet by mouth every six hours as needed IBUPROFEN Linda De Leon TIZANIDINE HCL 4 MG TABS Take 1 tablet by mouth as needed tizanidine 25487505528 Linda De Leon TRAMADOL HCL 50 MG TABS every twelve hours tramadol 33008936541 Linda De Leon NITROGLYCERIN 0.[address] 1 tablet under tongue as needed nitroglycerin 54118275963 Linda Moises ONDANSETRON HCL 4 MG TABS Take 1 tablet by mouth every eight hours as needed ondansetron hcl 89912872411 Linda Moises SPIRONOLACTONE 50 MG TABS Take 1 tablet by mouth once a day spironolactone 00634857747 Linda De Leon SITagliptin (JANUVIA) 25 MG tablet Take 1 tablet by mouth once a day JANOLIVER De Leon NEBIVOLOL HCL 5 MG TABS Take 1 tablet by mouth once a day nebivolol 28936621706 Jazieltyree De Leon GLYXAMBI 10-5 MG TABS Take 1 tablet by mouth once a day empagliflozin-li nagliptin 11713903034 Linda De Leon VENTOLIN HFA 108 (90 Base) MCG/ACT AERS INHALE TWO PUFFS BY MOUTH EVERY 4 TO 6 HOURS NEEDED 01/19 albuterol sulfate 42826942926 QIE qieuser TRAMADOL HCL 50 MG TABS Every 12 (Twelve) Hours. 01/19 tramadol 33688348108 QIE qieuser TIZANIDINE HCL 4 MG TABS Take 1 tablet by mouth As Needed. 01/19 tizanidine 99024888497 QIE qieuser SUCRALFATE 1 GM TABS Take 1 tablet by mouth 4 (Four) Times a Day. 01/19 sucralfate 30660457694 QIE qieuser SPIRONOLACTONE 50 MG TABS TAKE ONE TABLET BY MOUTH EVERY DAY 01/19 spironolactone 43993542729 QIE qieuser SITagliptin (JANUVIA) 25 MG tablet Take 1 tablet by mouth Daily. 01/19 JANUVIA QIE qieuser PRAVASTATIN SODIUM 10 MG TABS TAKE ONE TABLET BY MOUTH EVERY DAY AT BEDTIME 01/19 pravastatin 14567142833 QIE qieuser ONDANSETRON HCL 4 MG TABS Take 1 tablet by mouth Every 8 (Eight) Hours As Needed. 04/09 ondansetron hcl 89868380972 QIE qieuser OMEPRAZOLE 20 MG CPDR TAKE ONE CAPSULE BY MOUTH EVERY DAY 04/09 omeprazole 53690342144 QIE qieuser O2 (OXYGEN) 2 L by Alternating Nares route Every Night. OXYGEN QIE qieuser NITROGLYCERIN 0.[address] 1 tablet under the tongue As Needed for Chest Pain. 01/19 nitroglycerin 77707110406 QIE qieuser NEBIVOLOL HCL 5 MG TABS TAKE ONE TABLET BY MOUTH EVERY DAY 01/19 nebivolol 50123079821 QIE qieuser METFORMIN HCL 500 MG TABS Take 1 tablet by mouth 2 (Two) Times a Day. 01/19 metformin 31005726505 QIE qieuser IPRATROPIUM-ALBUT MIK 0.5-2.5 (3) MG/3ML SOLN ipratropium-albu terol 69740838492 QIE qieuser INDOMETHACIN 50 MG CAPS Take 1 capsule by mouth 3 (Three) Times a Day With Meals. 01/19 indomethacin 80384604190 QIE qieuser IBUPROFEN (IBUPROFEN) 800 MG TABS Take 1 tablet by mouth Every 6 (Six) Hours As Needed. 01/19 IBUPROFEN QIE qieuser ENTRESTO 24-26 MG TABS TAKE ONE TABLET BY MOUTH TWICE DAILY 01/19 sacubitril-valsa rtan 77425233999 QIE qieuser GLYXAMBI 10-5 MG TABS Take 1 tablet by mouth Daily. 01/19 empagliflozin-li nagliptin 92804113793 QIE qieuser FARXIGA 10 MG TABS Take 10 mg by mouth Daily. 01/19 dapagliflozin propanediol 86307672339 QIE qieuser BUMETANIDE 2 MG TABS TAKE ONE TABLET BY MOUTH TWICE DAILY 01/19 bumetanide 61654408158 QIE qieuser ADVAIR DISKUS 250-50 MCG/ACT AEPB Inhale 1 puff 2 (Two) Times a Day. 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
--- OUTSIDE RECORDS SUMMARY | 2025-04-19 09:48 | XMS_ITS | Encounter Summary ---
Author Organization [facility] Address [address] [place] [address] Care Team Providers Care Project Intern Name Role Phone Juarez Griffin MD Primary Care Provider [phone] Karen Naqvi DO Unavailable [phone] Encounter Details Date Type Department Care Team ([facility] st Contact Info) Description 02/12/2024 Orders Only External Location [address] [place] [address] Gennaro Cuevas MD [facility] [address] [place] [address] Social History Tobacco Use Types Packs/Day Years [...] Comment:+ 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 Source: [facility]. This patient will require contact precautions indefinitely. 04/01/2024 documented as of this encounter Care Teams Project Intern Relationship Specialty Start Date End Date Juarze Griffin MD [address] [place] [address] PCP - General 03/10/21 Karen Naqvi DO [facility] [address] [place] [address] Referring Physician Obstetrics and Gynecology 09/23/24 documented as of this encounter
--- OUTSIDE RECORDS SUMMARY | 2025-04-19 09:48 | XMS_ITS | Data Portability ---
Author Organization [facility] ABHAY MejiasS [place] Address [address] [facility] [address] [place] [address] Assessment No assessment recorded. Plan of Treatment Reminders Order Date Submit Date Provider Last Modified By Organization Details Last Modified Time Details Appointments None recorded. Lab None recorded. Referral aquatic therapy referral 2017 018 [email or web address] 2 Not available 8 11:14:18 cognitive behavioral therapy referral 2017 018 [email or web address] 2 [employer] [facility], [address] [facility] [facility] [address], [place], [address], 8 11:14:19 occupationa l therapist referral 2017 018 2 Not available 8 11:14:17 Procedures None recorded. Surgeries None recorded. Imaging None recorded. Medication Orders None recorded. Patient TargetsNo targets recorded. Patient Instructions Encounter Date Encounter Id Patient Instructions Last Modified By Organization Details Last Modified Time 08/13/2018 [id number] learning about healthy weight Not available 08/13/2018 10:45:00 RTC as PRN. Not available 08/13/2018 16:59:39 Reason for Referral Occupational Therapist Refer ral for Flexor tenosynovitis of finger Referring Physician: Cliff Barber, Rheumatology, Encounter Date: 08/13/2018 Aquatic Therapy Referral for Fibromyalgia fibromyalgia Referring Physician: Cliff Barber, Rheumatology, Encounter Date: 08/13/2018 Cognitive Behavioral Therapy Referral for Fibromyalgia fibromyalgia Referring Physician: Cliff Barber, Rheumatology, Encounter Date: 08/13/2018 Medical Equipment None Reported. Allergies Allergen ID Allergen Name Allergen Category Reaction Reaction Severity Criticality Documentation Date Start Date Code Code System Note Provider Name and Address Organization Details Recorded Time 130482 aspirin medicatio n Not available Not available Not available 08/13/2018 1191 RxNorm Melinda Hudson [facility] 8 10:01:54 Medications Name Sig Start [...] Address Organization Details Last Updated DateTime 8 291299. 12 g 48.2 kg/m2 160.02 cm 18 /min 61 /min 132 mm[Hg] 96 mm[Hg] Melinda Hudson [facility] 8 10:06:40 Social History Question Answer Notes LastModified by Organizat ion Details LastModified Time Tobacco Smoking Status Never Smoker Melinda Hudson [facility] 08/13/2018 10:02:03 What Was The Date Of Your Most Recent Tobacco Screening? 08/13/2018 Information n ot available 12/15/2019 Sex: Unknown Functional Status None recorded. Mental Status None recorded. Family History Relationship Description Onset Age of this Age Resolved Age Notes LastModified by Organization Details LastModified Time Father No current problems or disability Not available 08/13 10:02:01 Mother No current problems or disability [email or web address] Not available 08/13 10:02:01 Medical History Condition [...] SNOMED-CT Code Diagnosis ICD10 Code Diagnosis Note [id number] CLIFF BARBER MD [facility]HE[facility] [address] [place] [address] 08/13/2018 09:13:44 08/13/2018 10:48:47 Pain of multiple joints 16258676 M25.50 she has clinical features of Dixon OA. no features of an inflammato ry arthritis noted. no features of rheumatoid noted. 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 would suggest to avoid steroids and start OT as stated below. she can RTC with me as prn. 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 Health Concerns Section Related Observation LastModified by Organization Detai ls LastModified Time None Recorded Concern Status LastModified by Organization Details LastModified Time None Recorded Advance Directives Directive None Recorded Payers Insurance Date Sequence Insurance Name Policy Number Policy Valdivia Covered Member ID Valdivia Member ID Guarantor Name 02/03/2024 1 [facility] (MEDICAID H[id number] 01/24/2024 1 [place] FFS/TRADITIO NAL Lissy [place] [id number] Lissy [facility] 02/04/2024 1 [facility] [id number] Lissy [facility] 01/31/2024 1 [facility] (PP[place] [id number] Lissy [facility] [id number] Lissy [facility] Notes Date Note Type Note Provider [...] TSH. CLIFF BARBER MD [facility], [place], [address], [facility] 08/13/2018 17:00:47 OBGyn Episode No OBEpisode recorded.
--- OUTSIDE RECORDS SUMMARY | 2025-04-19 09:48 | XMS_ITS | Clinical Summary ---
Author Organization [facility] Address [address] [place] [address] Care Team Providers Care Wallpaper Scraper Name Role Phone Juarez Griffin MD Primary Care Provider [phone] Allergies Active Allergy Reactions Criticality Noted Date [...] your living situation today? I have a [facility] place to live 12/27/2023 Think about [...] Do you speak a language other than Brazilian at [facility]? No 12/27/2023 Do you [...] Completed 10/30/2023, Medical Devices Implanted Type Area Legal Recruiter Device Identifier Shelf Expiration Date Model / Serial / Lot Loop Recorder LOOP RECORDER Left: Chest Insurance [facility]NA [facility] Advance Directives For more information, please contact: [phone] * Full Code (Latest Code Status on File) Date Activated Date Inactivated Comments 12/27/2023 3:21 AM 12/30/2023 2:53 PM -Attempt Resus citation if person has no pulse and is not breathing. -If no pulse or not breathing attempt CPR/CODE. -Call Rapid Response if patient is in distress. Care Teams Wallpaper Scraper Relationship Specialty Start Date End Date Juarez Griffin MD [address] [place] [address] PCP - General General Internal Medicine 12/30/23
--- OUTSIDE RECORDS SUMMARY | 2025-04-19 09:48 | XMS_ITS | Encounter Summary ---
Author Organization [facility] Address [address] [place] [address] Care Team Providers Care Lap Checker Name Role Phone Juarez Griffin MD Primary Care Provider [phone] Karen Naqvi DO Unavailable [phone] Encounter Details Date Type Department Care Team ([facility] st Contact Info) Description 03/12/2025 Orders Only External Location [address] [place] [address] Provider, External Social History Tobacco Use Types [...] drink first t yue in the morning (EYE-CIVIL DRAFTSMAN) to steady your nerves or to get [...] Comment:+ 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 Source: [facility] [employer]. This patient will require contact precautions indefinitely. 04/01/2024 Assessment Noted Time A fall risk assessment has been complete d for the patient 10/05/2024 1:53 PM EST A Body Mass Index follow-up plan has been documented for the patient 04/12/2024 12:42 PM EDT documented as of this encounter Care Teams Lap Checker Relationship Specialty Start Date End Date Juarez Griffin MD [address] [facility] [address] [place] [address] PCP - General 03/10/21 Karen Naqvi DO [address] [facility] [address] [place] [address] Referring Physician Obstetrics and Gynecology 09/23/24 documented as of this encounter
--- OUTSIDE RECORDS SUMMARY | 2025-04-19 09:48 | XMS_ITS | Continuity of Care Document ---
Author Organization [facility] & [facility] -[facility] Address [address] [place] [address] Care Team Providers Care Laboratory Coordinator Name Role Phone SHERI BENAVIDESGHT Primary Care Provider Assessment No assessment recorded. Plan of Treatment Reminders Order Date Submit Date Provider Last Modified By Organization Details Last Modified Time Details Appointments None recorded. Lab urinalysis, dipstick [address] Infectious Disease -105, [address] [facility] [address], [place], [address], 14:18:52 CBC w/ diff 2024 025 [facility] (Registration ), [address], [place], [address], 16:11:55 CMP, serum or plasma 2024 025 [facility] (Registration ), [address] , [place], [address], 5 15:39:03 ESR (erythrocyt e sedimentati on rate), blood [address] (Registration ), [address] [facility], [place], [address], 5 08:54:47 C-reactive protein, quantitativ e, serum or plasma 2024 025 [email or web address] [facility] (Registration ), [address], [place], [address], 08:54:48 culture, urine 2024 025 [facility], [address], [address], [place], [address], 19:09:52 Referral None recorded. Procedures None recorded. [...] Not Available [facility] [address] [facility] [address], [place], [address], 02/23/2025 14:16:48 02/24/20 25 02/23/2025 urina lysis , dipst ick Nitrite (reference range:) negati ve Not Available [facility] Infect[facility] [address] [facility] [address], [place], [address], 02/23/2025 14:16:48 02/24/20 25 02/23/2025 urina lysis , dipst ick Urobilinogen (reference range) 0.2 Not Available [facility] Infect[facility] [address] [facility] [address], [place], [address], 02/23/2025 14:16:48 02/24/20 25 02/23/2025 urina lysis , dipst ick Protein (reference range) negati ve Not Available [facility] [address] [facility] [address], [place], [address], 02/23/2025 14:16:48 02/24/20 25 02/23/2025 urina lysis , dipst ick pH (reference range 5-8.5) 6.0 Not Available [place] [address] [address], [place], [address], 02/23/2025 14:16:48 02/24/20 25 02/23/2025 urina lysis , dipst ick Blood (reference range:) small Not Available [place] [address] [address], [place], [address], 02/23/2025 14:16:48 02/24/20 25 02/23/2025 urina lysis , dipst ick Specific [place] (reference range) 1.015 Not Available [place] [address] [address] [facility] [address], [place], [address], 02/23/2025 14:16:48 02/24/20 25 02/23/2025 urina lysis , dipst ick Ketone (reference range) negati ve Not Available [place] [address] [address] [facility] [address], [place], [address], 02/23/2025 14:16:48 02/24/20 25 02/23/2025 urina lysis , dipst ick Bilirubin (reference range) negati ve Not Available [place] [address] [address] [facility] [address], [place], [address], 02/23/2025 14:16:48 02/24/20 25 02/23/2025 urina lysis , dipst ick Glucose (reference range) 500 Not Available [place] [address] [address] [facility] [address], [place], [address], 02/23/2025 14:16:48 02/24/20 25 02/23/2025 urina lysis , dipst ick Color (reference range: yellow-brown ) Dark Yellow Not Available [facility] Infectious Disease -105 [address], [place], [address], 02/23/2025 14:16:48 Result Notes None recorded. Problems Name Problem SNOMED Code Status Onset Date Resolution Date Notes Provider Name and Address Organization Details Recorded Time Syncope 674204193 Active 2021 Malina Hernandez DO [address] [facility], [place], [address] , [place] - [facility] - [place] & [place] 15:33:04 Hypersomnia 09327949 Active 2021 Malina Hernandez DO [address] [facility], [place], [address] , [place] [facility] [place] 15:34:08 Problem Notes None recorded. Procedures Surgical History Date Name Laterality Status Provider Name and Address Organization Details Recorded Time 09/25/20 23 Cystoscopy-Female completed Silvio Valdez MD [address] [facility], [place], [address], [place] - [facility] - [place] & [place] 09/25/2023 15:26:11 04/04/20 22 Date of Last Pap Smear completed Vandana Dalla [place] - [facility] - [place] & [place] 10/03/2022 14:31:43 10/28/19 22 Manager Helpdesk Surgery completed Vandana Dalla [place] - [facility] [place] 10/03/2022 14:45:45 10/28/19 17 Cholecystectomy completed Vandana Dalla [place] - [facility] [place] & [place] 10/03/2022 14:32:27 10/28/19 14 Other completed Vandana Dalla [place] [facility] [place] 10/03/2022 14:44:51 cardiac catheterization completed Vandana Dalla [place] [facility] [place] & [place] 10/03/2022 14:46:31 strabismus surgery completed Vandana Dalla [place] [facility] [place] & [place] 10/03/2022 14:55:15 Imaging Results None recorded. Procedure Notes None recorded. Medical Equipment None Reported. Allergies Allergen ID Allergen Name Allergen Category Reaction Reaction Severity Criticality Documentation Date Start Date Code Code System Note Provider Name and Address Organization Details Recorded Time 45290 aspirin medicatio n chest pain wheezing moderate severe Not available 10/02/2022 1191 RxNorm Vandana catherine, [place] [facility] & [place] 2 09:22:42 20299 Bactrim medicatio n arthralgi a (joint pain) muscle cramps severe severe Not available 10/02/2022 99079 9 RxNorm Vandana catherine, [place] - [facility] & [place] 2 09:22:49 30324 insect venom environme nt confusion cough dizziness fever flushing headache wheezing moderate moderate moderate mild moderate moderate moderate Not available 10/02/2022 45520 UNK Vandana catherine, [place] [facility] & [place] 2 09:23:13 56850 Pneumococ georges vaccine Not available anaphylax is chest pain facial swelling nausea rash wheezing moderate moderate moderate moderate moderate moderate Not available 10/02/2022 18993 7 RxNorm Vandana catherine, [place] [facility] & [place] 2 09:23:25 22845 rosuvasta tin medicatio n eye swelling facial swelling respirato ry distress moderate moderate moderate Not available 10/02/2022 89915 2 RxNorm Vandana catherine, [place] Shea [facility] & [place] 2 09:23:35 Medications Name Sig [...] % 80 /min 98.6 [degF] 49.6 kg/m2 250559. 86 g 116 mm[Hg] 100 mm[Hg] Bianca Smith [place] - [facility] - [facility] 13:59:18 Social History Question Answer Notes LastModified by [employer] Details LastModified Time Tobacco Smoking Status Never Smoker Vandana Beckergodfrey catherine, [place] - [facility] & [place] 10/03/2022 14:32:09 Do You Have An Advance Directive? No Information not available 10/03/2022 Are You Blind Or Do You Have Difficulty Seeing? No Information not available 10/03/2022 What Was The Date Of Your Most Recent Tobacco Screening? 09/17/2022 Information not available 10/03/2022 Do You Have Any Pets? Yes [email or web address] Information not available 09/25/2023 Are You Passively Exposed To Smoke? No Information not available 10/03/2022 Are You Currently In School? No MASTERS [email or web address] Information not available 09/25/2023 Sex: Female Functional Status Question Answer Note LastModified by [employer] Details LastModified Time Do you use any illicit or recreational drugs? No Information not available 10/03/2022 What is your level of alcohol consumption? 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 Occasional Information not available 10/03/2022 Mental Status Question Answer Note LastModified by Organization [employer] LastModified Time Do you feel stressed (tense, restless, nervous, or anxious, or unable to sleep at night)? [id number] Information not available 10/03/2022 Family History Relationship [...] SNOMED-CT Code Diagnosis ICD10 Code Diagnosis Note [id number] Marilou Hebrert in, ROOM CLERK [facility] Infectiou s Disease -[address] [place] [address] 02/23/2025 13:48:33 02/23/2025 14:17:11 Recurrent urinary tract infection [id number] N39.0 Will check lab work. Will send [...] Member ID Guarantor Name 02/23/2025 1 [employer] [facility] (MEDICAID HMO) Lissy Valdez [id number] Lissy Valdez Notes Date Note Type Note [...] with urology in April 2025. Marilou David, ROOM CLERK [address], [place], [address], [facility] - [place] & [place] 02/24/2025 10:59:38 OBGyn Episode No OBEpisode recorded.
--- OUTSIDE RECORDS SUMMARY | 2025-04-19 09:48 | XMS_ITS | Continuity of Care Document ---
Author Organization [facility] & [facility] Infectious Disease -105 Address [address] [facility] [address] [place] [address] Care Team Providers Care Poultry Helper Name Role Phone ZAHRAA BENAVIDES Primary [...] and Address Organization Details Recorded Time Syncope 660923570 Active 2021 Malina Hernandez DO [address] [place], [address] [facility] & [place] 2 15:33:04 Hypersomnia 61663561 Active 2021 Malina Hernandez DO [address] [facility] [address] [facility] & [place] 15:34:08 Problem Notes None recorded. Procedures Surgical History Date Name Laterality Status Provider Name and Address Organization Details Recorded Time 09/25/20 23 Cystoscopy-Female completed Silvio Valdez MD [address] , [place], [address], [facility] & [place] 09/25/2023 15:26:11 04/04/20 22 Date of Last Pap Smear completed Vandana ELLER - [facility] & [place] 10/03/2022 14:31:43 10/28/19 22 Crepe Box Tender Surgery completed Vandana ELLER - [facility] - [place] & [place] 10/03/2022 14:45:45 10/28/19 17 Cholecystectomy completed Vandana ELLER - [facility] - [place] & [place] 10/03/2022 14:32:27 10/28/19 14 Other completed Vandana ELLER - [facility] - [place] & [place] 10/03/2022 14:44:51 cardiac catheterization completed Vandana ELLER - [facility] - [place] & [place] 10/03/2022 14:46:31 strabismus surgery completed Vandana ELLER - [facility] & [place] 10/03/2022 14:55:15 Imaging Results None recorded. Procedure Notes None recorded. Medical Equipment None Reported. Allergies Allergen ID Allergen Name Allergen Category Reaction Reaction Severity Criticality Documentation Date Start Date Code Code System Note Provider Name and Address Organization Details Recorded Time 72054 aspirin medicatio n chest pain wheezing moderate severe Not available 10/02/2022 1191 RxNorm Vandana catherine, [place] - [facility] & [place] 2 09:22:42 02766 Bactrim medicatio n arthralgi a (joint pain) muscle cramps severe severe Not available 10/02/2022 74346 9 RxNorm Vandana catherine, [place] - [facility] & [place] 2 09:22:49 62065 insect venom environme nt confusion cough dizziness fever flushing headache wheezing moderate moderate moderate mild moderate moderate moderate Not available 10/02/2022 71819 UNK Vandana catherine, [place] - [facility] & [place] 2 09:23:13 65913 Pneumococ georges vaccine Not available anaphylax is chest pain facial swelling nausea rash wheezing moderate moderate moderate moderate moderate moderate Not available 10/02/2022 14003 7 RxNorm Vandana Steven null, [place] - [facility] & [place] 2 09:23:25 27927 rosuvasta tin medicatio n eye swelling facial swelling respirato ry distress moderate moderate moderate Not available 10/02/2022 83615 2 RxNorm Vandana [place] - [facility] - [place] & [place] 2 09:23:35 Medications Name Sig Start Date [...] % 60 /min 97.7 [degF] 49.6 kg/m2 437142. 86 g 119 mm[Hg] 79 mm[Hg] Bianca Smith [facility] & [place] 13:31:54 Social History Question Answer Notes LastModified by Organizat ion Details LastModified Time Tobacco Smoking Status Never Smoker Vandana catherine, [facility] & [place] 10/03/2022 14:32:09 Do You Have An Advance Directive? No Information not available 10/03/2022 Are You Blind Or Do You Have Difficulty Seeing? No Information not available 10/03/2022 What Was The Date Of Your Most Recent Tobacco Screening? 09/17/2022 Information not available 10/03/2022 Do You Have Any Pets? Yes [email or web address] Information not available 09/25/2023 Are You Passively Exposed To Smoke? No Information not available 10/03/2022 Are You Currently In School? No MASTERS [email or web address] Information not available 09/25/2023 Sex: Female Functional [...] anxious, or unable to sleep at night)? [id number] Information not available 10/03/2022 Family History Relationship [...] SNOMED-CT Code Diagnosis ICD10 Code Diagnosis Note [id number] [facility] -105 [address] [facility] [address] [place] [address] 02/23/2025 13:48:33 02/23/2025 14:17:11 Recurrent urinary tract infection 771231642 N39.0 Will check lab work. Will send urine off for a culture. Will see patient back in 1 week. [id number] Mariloukinga MaloneyTaylor 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 Patient will follow up in 2 weeks. Call the office if anything persists or worsens. 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 Urine culture results received. Patient denies any fever. She is scheduled to have surgery to remove her stone on . Marilou David, STORAGE FACILITY HOUSEKEEPER [address], [place], [address], [place] [facility] - [place] & [place] 03/02/2025 13:35:40 OBGyn Episode No OBEpisode recorded.
--- OUTSIDE RECORDS SUMMARY | 2025-04-19 09:48 | XMS_ITS | Clinical Summary ---
Author Organization [facility] Address [address] [place] [address] Care Team Providers Care Math Specialist Name Role Phone Juarez Griffin MD Primary Care Provider [phone] Karen Naqvi DO Unavailable [phone] Allergies Active Allergy Reactions Criticality Noted Date [...] Team Description 03/12/2025 Orders Only External Location [address] [place] [address] Provider, External from Last 3 Months Immunizations [...] drink first t yue in the morning (EYE-MAILING CLERK) to steady your nerves or to get [...] PPSV23) 11/01/2021 09/06/2021 [facility]-Breast Cancer Screening 2023 [id number] Vaccine ( - season) 2024 10/07/2022, 08/21/2021 [...] this topic Medical Devices Implanted Type Area Facility Service Manager Device Identifier Shelf Expiration Date Model / Serial / Lot Stent Ureteral Double Pigtail Pos 6fr 24cm - [id number] - [id number] Implanted:Qty: 1 on 04/11/2024 by Harvey Macdonald MD at [facility] Stent Right: U[id number] 01/02/2026 [id number] / [id number] / [id number] Loop Recorder-2016 Implanted:04/28 (Quantity not on file) [email or web address] [id number] / / Procedures Procedure Name Priority [...] Reactive Non Reactive 04/10/2024 7:25 PM EDT [facility] Comment:Screening for HIV 1 & 2 antibodies, and P24 antigen is NONREACTIVE. No confirmatory testing is required. Blood Venous blood specimen / Unknown Venipuncture / Unknown 04/10/2024 6:11 PM EDT 04/10/2024 6:27 PM EDT us Susan Mcclure MD LAB BLOOD ORDERABLES Final Re sult Performing Organization Address [facility] Co de Phone Number [facility] [address] [place] [address] * Hepatitis C Antibody - ED (04/10/2024 6:11 PM EDT) Hepatitis C Antibody Negative Negative 04/10/2024 7:24 PM EDT [facility] Blood Venous blood specimen / Unknown Venipuncture / Unknown 04/10/2024 6:11 PM EDT 04/10/2024 6:26 PM EDT us Susan Mcclure MD LAB BLOOD ORDERABLES Final Re sult Performing Organization Address [facility] de Phone Number [facility] [address] [place] [address] * (ABNORMAL) Hemoglobin A1c (04/10/2024 6:11 PM EDT) Pathologist [facility] Hemoglobin A1c 6.3(H) <5.7 % [...] Adults <6.0% Children and Adolescents <7.5% Source: [place] [employer]. Standards of medical care in diabetes,2017. Diabetes Care.2017:40 (suppl 1):S1-S135. HbA1c assay performed by an ion-exchange chromatography method that is certified traceable to the [facility]. us Joselito Berrios MD LAB BLOOD ORDERABLES Final Re sult [facility] [address] [place] [address] from Last 3 Months or Most Recently Relevant to Health Maintenance Additional Health Concerns Infection Onset Date Last Indicated ESBL Comment:+ 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 Source: [facility]. This patient will require contact precautions indefinitely. 04/01/2024 Insurance [employer] MEDICAID Advance Directives * Full Code (Latest Code Status on File) Date Activated Date Inactivated Comments 04/11/2024 10:12 AM 04/12/2024 3:22 PM Question Answer Comments Patient has decision-making capacity? Yes Care Teams Math Specialist Relationship Specialty Start Date End Date Juarez Griffin MD [address] [facility] [address] [place] [address] PCP - General 03/10/21 Karen Naqvi DO [address] [facility] [address] [place] [address] Referring Physician Obstetrics and Gynecology 09/23/24
--- OUTSIDE RECORDS SUMMARY | 2025-04-19 09:48 | XMS_ITS | Data Portability ---
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 Will review to determine the degree of stone burden bilaterally in the kidneys. Will also plan cystoscopy and pelvic exam in the office in the near future. [email or web address] Not available 08/07/2023 15:34:46 09/25/2023 09/25/2023 I [...] in 6 months with KUB and UA. [email or web address] Not available 09/25/2023 15:29:09 Plan of Treatment Reminders Order Date Submit Date Provider Last Modified By Organization Details Last Modified Time Details Appointments None recorded. Lab urinalysis, dipstick 2024 025 [facility] -105, [address], [place], [address], 5 14:18:52 CBC w/ diff 2024 025 [facility] (Registration ), [address], [place], [address], 5 16:11:55 CMP, serum or plasma 2024 025 [facility] (Registration ), [address], [place], [address], 5 15:39:03 ESR (erythrocyt e sedimentati on rate), blood [address] (Registration ), [address] [facility], [place], [address], 5 08:54:47 C-reactive protein, quantitativ e, serum or plasma [address] (Registration ), [address], [place], [address], 5 08:54:48 culture, urine 2024 025 [facility], [address], [place], [address], 5 19:09:52 urinalysis, dipstick 2022 023 [email or web address] [facility], [address], [address], [place], [address], 3 16:08:29 Referral None recorded. Procedures None [...] usal 7.7 - 58.5 Perfo rmed at: [facility] n [address] [place] [address] 1262 Lab Direc tor: Los carson PhD, Phone : [phone] Not Available [facility] ([facility]) [address] [place], [address], 04/03/2023 10:13:10 04/02/20 23 04/03/2023 FSH FSH, serum 5.4 mIU/m L Adult Femal e: Folli cular phase 3.5 - 12.5 Ovula tion phase 4.7 - 21.5 Lutea l phase 1.7 - 7.7 Postm enopa usal 25.8 - 134.8 Perfo rmed at: [facility] n [address] [place] [address] 1263 Lab [facility] tor: Los carson PhD, Phone : [phone] Not Available [facility] ([facility]) [address] [facility], [place], [address], 04/03/2023 10:14:16 08/07/20 23 08/07/2023 urina lysis , dipst ick Leukocytes (reference range) trace Not Available [facility] [address] [facility] [address] [place] [address], [address], 08/07/2023 15:15:15 08/07/20 23 08/07/2023 urina lysis , dipst ick Nitrite (reference range:) negati ve Not Available [facility] [address] [place] [address], [address], 08/07/2023 15:15:15 08/07/20 23 08/07/2023 urina lysis , dipst ick Urobilinogen (reference range) 0.2 Not Available [facility] [address] [place] [address] [address], [place], [address], 08/07/2023 15:15:15 08/07/20 23 08/07/2023 urina lysis , dipst ick Protein (reference range) negati ve Not Available [facility] [address], [place], [address], 08/07/2023 15:15:15 08/07/2008/07/2023 urina lysis , dipst ick pH (reference range 5-8.5) 6.0 Not Available [facility] [address], [place], [address], 08/07/2023 15:15:15 08/07/2008/07/2023 urina lysis , dipst ick Blood (reference range:) small Not Available [address], [place], [address], 08/07/2023 15:15:15 08/07/20 23 08/07/2023 urina lysis , dipst ick Specific [place] (reference range) 1.015 Not Available [address], [place], [address], 08/07/2023 15:15:15 08/07/20 23 08/07/2023 urina lysis , dipst ick Ketone (reference range) negati ve Not Available [address], [place], [address], 08/07/2023 15:15:15 08/07/20 23 08/07/2023 urina lysis , dipst ick Bilirubin (reference range) negati ve Not Available [address], [place], [address], 08/07/2023 15:15:15 08/07/20 23 08/07/2023 urina lysis , dipst ick Glucose (reference range) 250 Not Available [facility] [address], [place], [address], 08/07/2023 15:15:15 08/07/20 23 08/07/2023 urina lysis , dipst ick Color (reference range: yellow-brown ) Yellow Not Available [facility] [address], [place], [address], 08/07/2023 15:15:15 02/24/20 25 02/23/2025 CBC AUTO W DIFF WBC 11.3 K/uL 4.0-10 .5 high Not Available [facility] ([facility]) [address], [place], [address], 02/23/2025 15:02:28 02/24/20 25 02/23/2025 CBC AUTO W DIFF RBC 5.7 M/mm3 4.2-6. 4 Not Available [facility] ([facility]) [address] , [place], [address], 02/23/2025 15:02:28 02/24/20 25 02/23/2025 CBC AUTO W DIFF HGB 15.8 gm/dL 12.5-1 6.0 Not Available [facility] ([facility]) [address] , [place], [address], 02/23/2025 15:02:28 02/24/20 25 02/23/2025 CBC AUTO W DIFF HCT 48.8 % 37.0-4 7.0 high Not Available [facility] ([facility]) [address], [place], [address], 02/23/2025 15:02:28 02/24/20 25 02/23/2025 CBC AUTO W DIFF MCV 86.4 fL 78-100 Not Available [facility] ([facility]) [address], [place], [address], 02/23/2025 15:02:28 02/24/20 25 02/23/2025 CBC AUTO W DIFF MCH 28.0 pg 27-31 Not Available [facility] ([facility]) [address], [place], [address], 02/23/2025 15:02:28 02/24/20 25 02/23/2025 CBC AUTO W DIFF MCHC 32.4 g/dL 32-36 Not Available [facility] ([facility]) [address], [place], [address], 02/23/2025 15:02:28 02/24/20 25 02/23/2025 CBC AUTO W DIFF RDW 13.7 % 11.5-1 4.0 Not Available [facility] ([facility]) [address], [place], [address], 02/23/2025 15:02:28 02/24/20 25 02/23/2025 CBC AUTO W DIFF platelet count 380 K/uL 150-45 0 Not Available [facility] ([facility]) [address] , [place], [address], 02/23/2025 15:02:28 02/24/20 25 02/23/2025 CBC AUTO W DIFF MPV 10.3 fL 6-9.5 high Not Available [facility] ([facility]) [address], [place], [address], 02/23/2025 15:02:28 02/24/20 25 02/23/2025 CBC AUTO W DIFF neutrophil% 66.5 % 43-65 high Not Available [facility] ([facility]) [address], [place], [address], 02/23/2025 15:02:28 02/24/20 25 02/23/2025 CBC AUTO W DIFF lymphocyte% 24.3 % 20.5-4 5.5 Not Available [facility] ([facility]) [address], [place], [address], 02/23/2025 15:02:28 02/24/20 25 02/23/2025 CBC AUTO W DIFF monocyte% 6.0 % 5.5-11 .7 Not Available [facility] ([facility]) [address] [facility], [place], [address], 02/23/2025 15:02:28 02/24/20 25 02/23/2025 CBC AUTO W DIFF eosinophil% 2.3 % 0.9-2. 9 Not Available [facility] ([facility]) [address] [place], [address], 02/23/2025 15:02:28 02/24/20 25 02/23/2025 CBC AUTO W DIFF basophil% 0.6 % 0.2-1. 0 Not Available [facility] ([facility]) [address] [place], [address], 02/23/2025 15:02:28 02/24/20 25 02/23/2025 CBC AUTO W DIFF immature granulocytes % 0.3 % 0.0-0. 8 Not Available [facility] ([facility]) [address] [place], [address], 02/23/2025 15:02:28 02/24/20 25 02/23/2025 CBC AUTO W DIFF nucleated red blood cells % 0.0 % Not Available [facility] ([facility]) [address] [place], [address], 02/23/2025 15:02:28 02/24/20 25 02/23/2025 CBC AUTO W DIFF neutrophil# 7.5 K/uL 2.2-4. 8 high Not Available [facility] ([facility]) [address], [place], [address], 02/23/2025 15:02:28 02/24/20 25 02/23/2025 CBC AUTO W DIFF lymphocyte# 2.7 cell/ mcL 1.3-2. 9 Not Available [facility] ([facility]) [address], [place], [address], 02/23/2025 15:02:28 02/24/20 25 02/23/2025 CBC AUTO W DIFF monocyte# 0.7 cell/ mcL 0.3-0. 8 Not Available [facility] ([facility]) [address], [place], [address], 02/23/2025 15:02:28 02/24/20 25 02/23/2025 CBC AUTO W DIFF eosinophil# 0.3 cell/ mcL 0-0.2 high Not Available [facility] ([facility]) [address], [place], [address], 02/23/2025 15:02:28 02/24/20 25 02/23/2025 CBC AUTO W DIFF basophil# 0.1 cell/ mcL 0.0-1. 0 Not Available [facility] ([facility]) [address], [place], [address], 02/23/2025 15:02:28 02/24/20 25 02/23/2025 CBC AUTO W DIFF immature gramulocytes # 0.03 K/uL Not Available [facility] ([facility]) [address], [place], [address], 02/23/2025 15:02:28 02/24/20 25 02/23/2025 CBC AUTO W DIFF nucleated red blood cells # 0.00 K/uL Not Available [facility] ([facility]) [address], [place], [address], 02/23/2025 15:02:28 02/24/20 25 02/23/2025 CBC AUTO W DIFF manual differential NO Not Available [facility] ([facility]) [address] , [place], [address], 02/23/2025 15:02:28 02/24/20 25 02/23/2025 COMP METAB OLIC PANEL sodium 138 mmol/ L 136-14 5 Not Available [facility] ([facility]) [address] , [place], [address], 02/23/2025 15:39:03 02/24/20 25 02/23/2025 COMP METAB OLIC PANEL potassium 3.7 mmol/ L 3.6-5. 0 Not Available [facility] ([facility]) [address] , [place], [address], 02/23/2025 15:39:03 02/24/20 25 02/23/2025 COMP METAB OLIC PANEL chloride 98 mmol/ L 98-107 Not Available [facility] ([facility]) [address] , [place], [address], 02/23/2025 15:39:03 02/24/20 25 02/23/2025 COMP METAB OLIC PANEL carbon dioxide 26.8 mmol/ L 21.0-3 2.0 Not Available [facility] ([facility]) [address] , [place], [address], 02/23/2025 15:39:03 02/24/20 25 02/23/2025 COMP METAB OLIC PANEL anion gap 16.9 Not Available [facility] ([facility]) [address] , [place], [address], 02/23/2025 15:39:03 02/24/20 25 02/23/2025 COMP METAB OLIC PANEL glucose 200 mg/dL 70-120 high Not Available [facility] ([facility]) [address], [place], [address], 02/23/2025 15:39:03 02/24/20 25 02/23/2025 COMP METAB OLIC PANEL BUN 12 mg/dL 7-18 Not Available [facility] ([facility]) [address], [place], [address], 02/23/2025 15:39:03 02/24/20 25 02/23/2025 COMP METAB OLIC PANEL creatinine 1.1 mg/dL 0.6-1. 3 Not Available [facility] ([facility]) [address], [place], [address], 02/23/2025 15:39:03 02/24/20 25 02/23/2025 COMP METAB [...] ing kiney funct ion. Not Available [facility] ([facility]) [address], [place], [address], 02/23/2025 15:39:03 02/24/20 25 02/23/2025 COMP METAB OLIC PANEL osmolality (calculated) 293 mOsm/ kg 275-30 1 OSMOL ALITY IS A CALCU LATIO N UTILI ZING THE SERUM /PLAS MA SODIU M, GLUCO SE AND UREA NITRO GEN (BUN) LEVEL S. FOR THE MOST ACCUR ATE RESUL T A MEASU RED SERUM OSMOL ALITY IS SUGGE STED. Not Available [facility] ([facility]) [address], [place], [address], 02/23/2025 15:39:03 02/24/20 25 02/23/2025 COMP METAB OLIC PANEL total protein 8.1 g/dL 6.4-8. 2 Not Available [facility] ([facility]) [address] , [place], [address], 02/23/2025 15:39:03 02/24/20 25 02/23/2025 COMP METAB OLIC PANEL albumin 3.6 g/dL 3.4-5. 0 Not Available [facility] ([facility]) [address] , [place], [address], 02/23/2025 15:39:03 02/24/20 25 02/23/2025 COMP METAB OLIC PANEL globulin 4.5 Not Available [facility] ([facility]) [address], [place], [address], 02/23/2025 15:39:03 02/24/20 25 02/23/2025 COMP METAB OLIC PANEL alb/glob ratio 0.8 0.7-2 Not Available [facility] ([facility]) [address], [place], [address], 02/23/2025 15:39:03 02/24/20 25 02/23/2025 COMP METAB OLIC PANEL calcium 10.2 mg/dL 8.5-10 .5 Not Available [facility] ([facility]) [address], [place], [address], 02/23/2025 15:39:03 02/24/20 25 02/23/2025 COMP METAB OLIC PANEL bilirubin total 0.60 mg/dL 0.10-1 .00 Not Available [facility] ([facility]) [address] [place], [address], 02/23/2025 15:39:03 02/24/20 25 02/23/2025 COMP METAB OLIC PANEL AST (SGOT) 46 U/L 0-37 high Not Available [facility] ([facility]) [address] [place], [address], 02/23/2025 15:39:03 02/24/20 25 02/23/2025 COMP METAB OLIC PANEL ALT (SGPT) 78 U/L 0-65 high Not Available [facility] ([facility]) [address], [place], [address], 02/23/2025 15:39:03 02/24/20 25 02/23/2025 COMP METAB OLIC PANEL alk phosphatase 111 U/L 46-116 Not Available [facility] ([facility]) [address], [place], [address], 02/23/2025 15:39:03 02/24/20 25 02/23/2025 C-KARLI CTIVE PROTE IN (CRP) C-reactive protein, quant 2.0 mg/dL 0.05-0 .300 high Not Available [facility] ([facility]) [address] [facility], [place], [address], 02/23/2025 15:40:11 02/24/20 25 02/23/2025 SED RATE sed rate auto 9 0-20 Not Available [facility] ([facility]) [address], [place], [address], 02/23/2025 15:43:35 02/24/20 25 02/27/2025 URINE CULTU RE,CO MPREH ENSIV E urine culture,comp rehensive FINAL REPORT abnormal Not Available [facility] ([facility]) [address], [place], [address], 02/27/2025 19:09:52 02/24/20 25 02/27/2025 URINE CULTU [...] per mL Not Available [facility] ([facility]) [address] [facility], [place], [address], 02/27/2025 19:09:52 02/24/20 25 02/27/2025 URINE CULTU [...] rolin e Not Available [facility] ([facility]) [address] [facility], [place], [address], 02/27/2025 19:09:52 02/24/20 25 02/27/2025 URINE CULTU [...] R S Not Available [facility] ([facility]) [address] [facility], [place], [address], 02/27/2025 19:09:52 02/24/20 25 02/23/2025 urina lysis , dipst ick Leukocytes (reference range) trace Not Available [place] [address], [place], [address], 02/23/2025 14:16:48 02/24/20 25 02/23/2025 urina lysis , dipst ick Nitrite (reference range:) negati ve Not Available [place] [address], [place], [address], 02/23/2025 14:16:48 02/24/20 25 02/23/2025 urina lysis , dipst ick Urobilinogen (reference range) 0.2 Not Available [place] [address] [address] [facility] [address], [place], [address], 02/23/2025 14:16:48 02/24/20 25 02/23/2025 urina lysis , dipst ick Protein (reference range) negati ve Not Available [place] [address] [address] [facility] [address], [place], [address], 02/23/2025 14:16:48 02/24/20 25 02/23/2025 urina lysis , dipst ick pH (reference range 5-8.5) 6.0 Not Available [place] [address], [place], [address], 02/23/2025 14:16:48 02/24/20 25 02/23/2025 urina lysis , dipst ick Blood (reference range:) small Not Available [place] [address] [address] [facility] [address], [place], [address], 02/23/2025 14:16:48 02/24/20 25 02/23/2025 urina lysis , dipst ick Specific [place] (reference range) 1.015 Not Available [place] [address] [address] [facility] [address], [place], [address], 02/23/2025 14:16:48 02/24/20 25 02/23/2025 urina lysis , dipst ick Ketone (reference range) negati ve Not Available [place] [address] [address] [facility] [address], [place], [address], 02/23/2025 14:16:48 02/24/20 25 02/23/2025 urina lysis , dipst ick Bilirubin (reference range) negati ve Not Available [place] [address] [address] [facility] [address], [place], [address], 02/23/2025 14:16:48 02/24/20 25 02/23/2025 urina lysis , dipst ick Glucose (reference range) 500 Not Available [place] [address] [address] [facility] [address], [place], [address], 02/23/2025 14:16:48 02/24/20 25 02/23/2025 urina lysis , dipst ick Color (reference range: yellow-brown ) Dark Yellow Not Available [place] [address] [address] [facility] [address], [place], [address], 02/23/2025 14:16:48 Result Notes None recorded. Problems Name Problem SNOMED Code Status Onset Date Resolution Date Notes Provider Name and Address Organization Details Recorded Time Syncope 050402206 Active 2021 Malina Hernandez DO [address], [place], [address] , [place] 15:33:04 Hypersomnia 42745661 Active 2021 Malina Hernandez DO [address] [facility] [place], [address] , [place] [facility] & [place] 15:34:08 Problem Notes None recorded. Procedures Surgical History Date Name Laterality Status Provider Name and Address Organization Details Recorded Time 09/25/20 23 Cystoscopy-Female completed Silvio Valdez MD [address], [place], [address], [place] [facility] & [place] 09/25/2023 15:26:11 04/04/20 22 Date of Last Pap Smear completed Vandana Eugenioa [place] [facility] & [place] 10/03/2022 14:31:43 10/28/19 22 Archivist Economic History Surgery completed Vandana Dalla [place] 10/03/2022 14:45:45 10/28/19 17 Cholecystectomy completed Vandana Eugenioa [place] [facility] [facility] & [place] 10/03/2022 14:32:27 10/28/19 14 Other completed Vandana Dalla [place] 10/03/2022 14:44:51 cardiac catheterization completed Vandana Dalla [place] 10/03/2022 14:46:31 strabismus surgery completed Vandana Dalla [place] 10/03/2022 14:55:15 Imaging Results None recorded. Procedure Notes None recorded. Medical Equipment None Reported. Allergies Allergen ID Allergen Name Allergen Category Reaction Reaction Severity Criticality Documentation Date Start Date Code Code System Note Provider Name and Address Organization Details Recorded Time 03575 aspirin medicatio n chest pain wheezing moderate severe Not available 10/02/2022 1191 RxNorm Vandana Eugenioa null, [place] [facility] [facility] & [place] 09:22:42 44180 Bactrim medicatio n arthralgi a (joint pain) muscle cramps severe severe Not available 10/02/2022 46330 9 RxNorm Vandana Dalla null, [place] [facility] [facility] & [place] 2 09:22:49 91043 insect venom environme nt confusion cough dizziness fever flushing headache wheezing moderate moderate moderate mild moderate moderate moderate Not available 10/02/2022 12254 UNK Vandana catherine, [place] - [facility] & [place] 2 09:23:13 46513 Pneumococ georges vaccine Not available anaphylax is chest pain facial swelling nausea rash wheezing moderate moderate moderate moderate moderate moderate Not available 10/02/2022 84245 7 RxNorm Vandana catherine, [place]ATHIE[place] - [facility] & [place] 2 09:23:25 32141 rosuvasta tin medicatio n eye swelling facial swelling respirato ry distress moderate moderate moderate Not available 10/02/2022 83131 2 RxNorm Vandana catherine, [place]ATHIE[place] - [facility] & [place] 2 09:23:35 Medications Name Sig Start Date [...] % 80 /min 98.6 [degF] 49.6 kg/m2 861861. 86 g 116 mm[Hg] 100 mm[Hg] Bianca Smith [place] [facility] 5 13:59:18 Date Recorded Body height Heart rate Oxygen saturation Oxygen saturation in Arterial blood by Pulse oximetry Heart rate Body temperature Body mass index (BMI) Body weight Systolic blood pressure Diastolic blood pressure Provider Name and Address Organization Details Last Updated DateTime 5 160.02 cm 60 /min 97 % 97 % 60 /min 97.7 [degF] 49.6 kg/m2 699295. 86 g 119 mm[Hg] 79 mm[Hg] Bianca Smith [place] [facility] [facility] & [place] 5 13:31:54 Date Recorded Body height Body temperature Oxygen saturation Oxygen saturation in Arterial blood by Pulse oximetry Inhaled oxygen flow rate Heart rate Body mass index (BMI) Body weight Systolic blood pressure Diastolic blood pressure Provider Name and Address Organization Details Last Updated DateTime 3 157.48 cm 97.1 [degF] 98 % 98 % 2 L/min 89 /min 48.3 kg/m2 432552. 39 g 128 mm[Hg] 98 mm[Hg] Phillip Morrison [facility] & [place] 3 13:04:48 Date Recorded Body height Body mass index (BMI) Body weight Systolic blood pressure Diastolic blood pressure Provider Name and Address Organization Details Last Updated DateTime 08/07/2023 157.48 cm 49.4 kg/m2 496358.9 4 g 125 mm[Hg] 75 mm[Hg] Britney Yee [facility] & [place] 3 15:05:24 Date Recorded Body height Body mass index (BMI) Body weight Systolic blood pressure Diastolic blood pressure Provider Name and Address Organization Details Last Updated DateTime 09/25/2023 157.48 cm 51.2 kg/m2 873705.8 6 g 126 mm[Hg] 76 mm[Hg] Ioana Ayala [facility] & [place] 3 15:07:04 Social History Question Answer Notes LastModified by [employer] ion Details LastModified Time Tobacco Smoking Status Never Smoker Vandana catherine, [facility] & [place] 10/03/2022 14:32:09 Do You Have An Advance [...] 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 Occasional Information not available 10/03/2022 Mental Status Question Answer Note LastModified by Organization D etails LastModified Time Do you feel stressed (tense, restless, nervous, or anxious, or unable to sleep at night)? [id number] Information not available 10/03/2022 Family History Relationship [...] SNOMED-CT Code Diagnosis ICD10 Code Diagnosis Note [id number] Malina Hernandez, DO [facility] [address] [facility],[address] [place] [address] 10/03/2022 14:07:23 10/03/2022 15:38:25 Syncope 259530265 R55 She has been experienci ng these stereotypi georges passing out episodes for five years. No definite witnessed convulsion s but some associated brief confusion afterwards .will order EEG to rule out neurologic causes of syncope Hypersomnia 08583998 G47 .10 She describes some significan t episodes of pathologic al sleepiness . She will fall asleep without warning in the middle of talking. This is very infrequent but can be suggestive of narcolepsy . Will order PSG with MSLT to evaluate this in more detail. [id number] Micheline Lackey MD [facility] General Surgery [address] [place] [address],[address] [place] [address] 04/02/2023 12:53:55 04/02/2023 13:53:12 Pelvic mass 26472638 R19.00 Possible lymphocele versus ovarian remnant from [...] patient with lab levels and consider further [employer] follow up. [id number] Silvio Valdez MD [facility] [address] [place] [address],[address] [place] [address] 08/07/2023 14:35:57 08/07/2023 15:40:17 Recurrent urinary tract infection [id number] N39.0 Kidney stone 68779407 N2 0.0 Chronic th oracic back pain [id number] 95990 M54.6 Microscopic hematuria 19 5076815 R31.29 [id number] Silvio Valdez MD [facility] [address] [place] [address],[address] [place] [address] 09/25/2023 14:26:57 09/25/2023 15:25:02 Recurrent urinary tract infection [id number] N39.0 Kidney stone 04773109 N2 0.0 Microscopic hematuria 19 9040783 R31.29 [id number] [facility] [facility] -105 [address] [facility] [address] [place] [address] 02/23/2025 13:48:33 02/23/2025 14:17:11 Recurrent urinary tract infection [id number] N39.0 Will check lab work. Will send urine off for a culture. Will see patient back in 1 week. 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 Patient will follow up in 2 weeks. Call the office if anything persists or worsens. 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 see above Health Concerns Section Related Observation LastModified by Organization Detai ls LastModified Time None Recorded Concern Status LastModified by Organization Details LastModified Time None Recorded Advance Directives Directive N: Payers Insurance Date Sequence Insurance Name Policy Number Policy Valdivia Covered Member ID Valdivia Member ID Guarantor Name 09/18/2023 1 [facility] (POS II) [facility] [id number] [facility] 02/27/2025 1 [facility] (MEDICAID HMO) [facility] [id number] [facility] Notes Date Note Type Note [...] time. Patient states she is seen her veneer repairer machine for this, was told it is possibly a lymphocele. Micheline Lackey MD [address] [facility], [place], [address], [place] - [facility] - [place] & [place] 04/18/2023 12:50:43 08/07/2023 text/html Location: Histor y [...] is status post hysterectomy. Silvio Valdez MD [address] [facility], [place], [address], [facility] - [facility] - [place] & [place] 08/07/2023 15:35:17 09/25/2023 text/html Patient returns to [...] hysterectomy. Silvio Valdez MD [address], [place], [address], [facility] & [place] 09/25/2023 15:30:10 02/23/2025 text/html patient presents to [...] 2025. Marilou David APRN [address], [place], [address], [facility] - [facility] & [place] 02/24/2025 10:59:38 03/02/2025 text/html patient presents to clinic for follow up. Urine culture results received. Patient denies any fever. She is scheduled to have surgery to remove her stone on . Marilou David APRN [address], [place], [address], [facility] & [place] 03/02/2025 13:35:40 OBGyn Episode No OBEpisode recorded.
--- OUTSIDE RECORDS SUMMARY | 2025-04-19 09:49 | XMS_ITS | Referral Summary ---
Author Organization [facility] [employer] Address [address] [place] [address] Care Team Providers Care Industrial Paramedic Name Role Phone Juarez Griffin MD Primary Care Provider [phone] Allergies Active Allergy Reactions Criticality Noted Date [...] your living situation today? I have a [facility] place to live 12/27/2023 Think about [...] Do you speak a language other than [facility]? No 12/27/2023 Do you want help [...] on file Medical Devices Implanted Type Area Plant Production Worker Device Identifier Shelf Expiration Date Model / Serial / Lot Loop Recorder LOOP RECORDER Left: Chest Insurance [facility] Advance Directives For more information, please contact: [phone] * Full Code (Latest Code Status on File) Date Activated Date Inactivated Comments 12/27/2023 3:21 AM 12/30/2023 2:53 PM -Attempt Resus citation if person has no pulse and is not breathing. -If no pulse or not breathing attempt CPR/CODE. -Call Rapid Response if patient is in distress. Care Teams Industrial Paramedic Relationship Specialty Start Date End Date Juarez Griffin MD [address] [place] [address] [place] [id number] PCP - General General Internal Medicine 12/30/23
== END 2025-04-15 23:59 | disposition home or self-care (01) ==
LOC: LAB.DROPOF 04-19 09:32
PROVIDERS: PCP Internal Medicine; Visit Provider Internal Medicine
DX: N39.0 Urinary tract infection, site not specified (principal)
CPT/HCPCS: 81001; 87086; 87088; 87186

== ENCOUNTER 2025-04-16 12:19 | Outpatient (CLI) | payer OTHER, SELFPAY ==
--- OUTSIDE RECORDS SUMMARY | 2025-04-16 12:21 | XMS_ITS | Encounter Summary ---
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 Source: [facility] [employer]. This patient will require contact precautions indefinitely. 04/01/2024 Assessment Noted Time A fall risk assessment has been complete d for the patient 10/05/2024 1:53 PM EST A Body Mass Index follow-up plan has been documented for the patient 04/12/2024 12:42 PM EDT documented as of this encounter Care Teams Hand Cutter Relationship Specialty Start Date End Date Juarez Griffin MD [address] [facility] [address] [place] [address] PCP - General 03/10/21 Karen Naqvi DO [address] [facility] [address] [place] [address] Referring Physician Obstetrics and Gynecology 09/23/24 documented as of this encounter
--- OUTSIDE RECORDS SUMMARY | 2025-04-16 12:21 | XMS_ITS | Continuity of Care Document ---
Author Organization [facility] Infectious Disease -105 Address [address] [facility] [address] [place] [address] Care Team Providers Care Bakery Team Member Name Role Phone SHERI BENAVIDESGHT Primary Care Provider Assessment No assessment recorded. Plan of Treatment Reminders Order Date Submit Date Provider Last Modified By Organization Details Last Modified Time Details Appointments None recorded. Lab urinalysis, dipstick [address] Infectious Disease -105, [address] [facility] [address], [place], [address], 14:18:52 CBC w/ diff 2024 025 [facility] (Registration ), [address] [facility], [place], [address], 16:11:55 CMP, serum or plasma 2024 025 [facility] (Registration ), [address] [facility], [place], [address], 5 15:39:03 ESR (erythrocyt e sedimentati on rate), blood [address] (Registration ), [address] [facility], [place], [address], 5 08:54:47 C-reactive protein, quantitativ e, serum or plasma 2024 025 [email or web address] [facility] (Registration ), [address], [place], [address], 08:54:48 culture, urine 2024 025 [facility], [address], [address], [place], [address], 19:09:52 Referral None recorded. Procedures None recorded. Surgeries None recorded. Imaging None recorded. Medication Orders None recorded. Patient TargetsNo targets recorded. Patient InstructionsNo instructions recorded. Reason for Referral None Reported. Results Created Date Observation Date Name Description Value Unit Range Abnormal Flag Note LastModifiedBy Organization Detail LastModifiedTime 02/24/2002/23/2025 urina lysis , dipst ick Leukocytes (reference range) trace Not Available [facility] Infectious Disease -[facility] [address] [facility] [address], [place], [address], 02/23/2025 14:16:48 02/24/20 25 02/23/2025 urina lysis , dipst ick Nitrite (reference range:) negati ve Not Available [facility] Infectious Disease -[facility] [address], [place], [address], 02/23/2025 14:16:48 02/24/20 25 02/23/2025 urina lysis , dipst ick Urobilinogen (reference range) 0.2 Not Available [facility] Infectious Disease -[facility] [address], [place], [address], 02/23/2025 14:16:48 02/24/20 25 02/23/2025 urina lysis , dipst ick Protein (reference range) negati ve Not Available [facility] Infectious Disease -[facility] [address] [facility] [address], [place], [address], 02/23/2025 14:16:48 02/24/20 25 02/23/2025 urina lysis , dipst ick pH (reference range 5-8.5) 6.0 Not Available [place] [address] [address] [facility] [address], [place], [address], 02/23/2025 14:16:48 02/24/20 25 02/23/2025 urina lysis , dipst ick Blood (reference range:) small Not Available [place] [address] [address] [facility] [address], [place], [address], 02/23/2025 14:16:48 02/24/20 25 02/23/2025 urina lysis , dipst ick Specific Jupiter (reference range) 1.015 Not Available [place] [address] [address] [facility] [address], [place], [address], 02/23/2025 14:16:48 02/24/20 25 02/23/2025 urina lysis , dipst ick Ketone (reference range) negati ve Not Available [place] [address] [address] [facility] [address], [place], [address], 02/23/2025 14:16:48 02/24/20 25 02/23/2025 urina lysis , dipst ick Bilirubin (reference range) negati ve Not Available [place] [address] [address] [facility] [address], [place], [address], 02/23/2025 14:16:48 02/24/20 25 02/23/2025 urina lysis , dipst ick Glucose (reference range) 500 Not Available [place] [address] [address] [facility] [address], [place], [address], 02/23/2025 14:16:48 02/24/20 25 02/23/2025 urina lysis , dipst ick Color (reference range: yellow-brown ) Dark Yellow Not Available [facility] Infectious Disease -[address], [place], [address], 02/23/2025 14:16:48 Result Notes None recorded. Problems Name Problem SNOMED Code Status Onset Date Resolution Date Notes Provider Name and Address Organization Details Recorded Time Syncope 618156235 Active 2021 Malina Hernandez DO [address] [facility], [place], [address] , [place] - [facility] - [place] & [place] 15:33:04 Hypersomnia 89685304 Active 2021 Malina Hernandez DO [address] [facility], [place], [address] , [place] 15:34:08 Problem Notes None recorded. 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 Procedure Notes None recorded. Medical Equipment None Reported. Allergies Allergen ID Allergen Name Allergen Category Reaction Reaction Severity Criticality Documentation Date Start Date Code Code System Note Provider Name and Address Organization Details Recorded Time 76984 aspirin medicatio n chest pain wheezing moderate severe Not available 10/02/2022 1191 RxNorm Vandana catherine, [facility] [place] 2 09:22:42 65561 Bactrim medicatio n arthralgi a (joint pain) muscle cramps severe severe Not available 10/02/2022 25713 9 RxNorm Vandana catherine, RAFITA DARLING [facility] & [place] 2 09:22:49 05223 insect venom environme nt confusion cough dizziness fever flushing headache wheezing moderate moderate moderate mild moderate moderate moderate Not available 10/02/2022 24365 UNK Vandana catherine, RAF[place] Shea [facility] & [place] 2 09:23:13 66067 Pneumococ georges vaccine Not available anaphylax is chest pain facial swelling nausea rash wheezing moderate moderate moderate moderate moderate moderate Not available 10/02/2022 60511 7 RxNorm Vandana catherine, RAF[place] DARLING [facility] & [place] 2 09:23:25 72299 rosuvasta tin medicatio n eye swelling facial swelling respirato ry distress moderate moderate moderate Not available 10/02/2022 02183 2 RxNorm Vandana catherine, RAF[place] DARLING [facility] & [place] 2 09:23:35 Medications Name Sig [...] % 80 /min 98.6 [degF] 49.6 kg/m2 365189. 86 g 116 mm[Hg] 100 mm[Hg] Bianca Smith [place] & [place] 5 13:59:18 Social History Question Answer Notes LastModified by [employer] Details LastModified Time Tobacco Smoking Status Never Smoker Vandana Harris [place], [place] 10/03/2022 14:32:09 Do You Have An Advance Directive? No Information not available 10/03/2022 Are You Blind Or Do You Have Difficulty Seeing? No Information not available 10/03/2022 What Was The Date Of Your Most Recent Tobacco Screening? 09/17/2022 Information not available 10/03/2022 Do You Have Any Pets? Yes [email or web address] Information not available 09/25/2023 Are You Passively Exposed To Smoke? No Information not available 10/03/2022 Are You Currently In School? No MASTERS [email or web address] Information not available 09/25/2023 Sex: Female Functional Status Question Answer Note LastModified by [employer] Details LastModified Time Do you use any illicit or recreational drugs? No Information not available 10/03/2022 What is your level of alcohol consumption? 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 Occasional Information not available 10/03/2022 Mental Status Question Answer Note LastModified by Organization D etails LastModified Time Do you feel stressed (tense, restless, nervous, or anxious, or unable to sleep at night)? [id number] Information not available 10/03/2022 Family History Relationship [...] SNOMED-CT Code Diagnosis ICD10 Code Diagnosis Note [id number] Marilou Herbert in, SHIPPING ORDER CLERK [facility] Infectiou s Disease -[address] [place] [address] 02/23/2025 13:48:33 02/23/2025 14:17:11 Recurrent urinary tract infection 211284165 N39.0 Will check lab work. Will send urine off for a culture. Will see patient back in 1 week. Health Concerns Section Related Observation LastModified by Organization Detai ls LastModified Time None Recorded Concern Status LastModified by Organization Details LastModified Time None Recorded Payers Encounter Date Sequence Insurance Name Policy Number Policy Valdivia Covered Member ID Valdivia Member ID Guarantor Name 02/23/2025 1 [facility] (MEDICAID HMO) Lissystas Valdez [id number] Lissy Valdez Notes Date Note Type Note [...] 2025. Marilou David, PREETI [address], [place], [address], [facility] - [place] & [place] 02/24/2025 10:59:38 OBGyn Episode No OBEpisode recorded.
--- OUTSIDE RECORDS SUMMARY | 2025-04-16 12:21 | XMS_ITS | Data Portability ---
Author Organization [facility] Mahamed morgan, ABHAYS TROY CLOSED Address [address] [facility] [address] [place] [address] Assessment No assessment recorded. Plan of Treatment Reminders Order Date Submit Date Provider Last Modified By Organization Details Last Modified Time Details Appointments None recorded. Lab None recorded. Referral aquatic therapy referral 2017 018 [email or web address] 2 Not available 8 11:14:18 cognitive behavioral therapy referral 2017 018 [email or web address] 2 [facility] [address] [facility], [address], [place], [address], 8 11:14:19 occupationa l therapist referral 2017 018 [email or web address] 2 Not available 8 11:14:17 Procedures None recorded. Surgeries None recorded. Imaging None recorded. Medication Orders None recorded. Patient TargetsNo targets recorded. Patient Instructions Encounter Date Encounter Id Patient Instructions Last Modified By Organization Details Last Modified Time 08/13/2018 [id number] learning about healthy weight Not available 08/13/2018 [...] Name and Address Organization Details Recorded Time 055225 aspirin medicatio n Not available Not available [...] Address Organization Details Last Updated DateTime 8 119753. 12 g 48.2 kg/m2 160.02 cm 18 /min 61 /min 132 mm[Hg] 96 mm[Hg] Melinda [facility] 8 10:06:40 Social History Question [...] Time Father No current problems or disability [email or web address] Not available 08/13 10:02:01 Mother No current problems or disability [email or web address] Not available 08/13 10:02:01 Medical History Condition [...] SNOMED-CT Code Diagnosis ICD10 Code Diagnosis Note [id number] CLIFF BARBER MD RHEUMATOL OGY [address] [place] [address] 08/13/2018 09:13:44 08/13/2018 10:48:47 Pain of multiple joints 71692886 M25.50 she has clinical features of Dixon OA. no features of an inflammato ry arthritis noted. no features of rheumatoid noted. 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 would suggest to avoid steroids and start OT as stated below. she can RTC with me as prn. 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 Health Concerns Section Related Observation LastModified by Organization Detai ls LastModified Time None Recorded Concern Status LastModified by Organization Details LastModified Time None Recorded Advance Directives Directive None Recorded Payers Insurance Date Sequence Insurance Name Policy Number Policy Valdivia Covered Member ID Valdivia Member ID Guarantor Name 02/03/2024 1 [facility] (MEDICAID [facility]) [id number] 01/24/2024 1 [place]FS/TRADITIO NAL Lissy [place] [id number] Lissy [facility] 02/04/2024 1 [facility] (MEDICAID HMO) [facility] [id number] [facility] 01/31/2024 1 [facility] [id number] Lissy [facility] [id number] Lissy [facility] Notes Date Note Type Note Provider [...] and a normal TSH. CLIFF BARBER MD [facility] [place], [address], [facility] 08/13/2018 17:00:47 OBGyn Episode No OBEpisode recorded.
--- OUTSIDE RECORDS SUMMARY | 2025-04-16 12:21 | XMS_ITS | Encounter Summary ---
Author Organization [facility] Address [address] [place] [address] Care Team Providers Care Research Program Assistant Name Role Phone Juarez Griffin MD Primary Care Provider [phone] Karen Naqvi DO Unavailable [phone] Encounter Details Date Type Department Care Team ([facility] st Contact Info) Description 02/12/2024 Orders Only External Location [address] [place] [address] Gennaro Cuevas MD [facility] [address] [place] [address] Social History Tobacco Use Types Packs/Day Years [...] Comment:+ 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 Source: [facility]. This patient will require contact precautions indefinitely. 04/01/2024 documented as of this encounter Care Teams Research Program Assistant Relationship Specialty Start Date End Date Juarez Griffin MD [address] [place] [address] PCP - General 03/10/21 Karen Naqvi DO [facility] [address] [place] [address] Referring Physician Obstetrics and Gynecology 09/23/24 documented as of this encounter
--- OUTSIDE RECORDS SUMMARY | 2025-04-16 12:22 | XMS_ITS | Referral Summary ---
Author Organization [facility] [employer] Address [address] [place] [address] Care Team Providers Care Oracle Architect Name Role Phone Juarez Griffin MD Primary Care Provider [phone] Allergies Active Allergy Reactions Criticality Noted Date [...] to sleep or slept in a senior living (including now)? No 12/27/2023 Utilities Answer Date [...] your living situation today? I have a [facility] place to live 12/27/2023 Think about [...] Do you speak a language other than Italian at [facility]? No 12/27/2023 Do you want help [...] on file Medical Devices Implanted Type Area Wafer Substrate Tester Device Identifier Shelf Expiration Date Model / Serial / Lot Loop Recorder LOOP RECORDER Left: Chest Insurance [facility] Advance Directives For more information, please contact: [phone] * Full Code (Latest Code Status on File) Date Activated Date Inactivated Comments 12/27/2023 3:21 AM 12/30/2023 2:53 PM -Attempt Resus citation if person has no pulse and is not breathing. -If no pulse or not breathing attempt CPR/CODE. -Call Rapid Response if patient is in distress. Care Teams Oracle Architect Relationship Specialty Start Date End Date Juarez Griffin MD [address] [place] [address] [place] [address] PCP - General General Internal Medicine 12/30/23
--- OUTSIDE RECORDS SUMMARY | 2025-04-16 12:22 | XMS_ITS | Clinical Summary ---
Author Organization [employer] [facility] Address [address] [place] [address] Care Team Providers Care Relations Specialist Name Role Phone Juarez Griffin MD Primary Care Provider [phone] Allergies Active Allergy Reactions Criticality Noted Date [...] place to sleep or slept in a [facility] (including now)? No 12/27/2023 Utilities Answer Date [...] your living situation today? I have a [facility] place to live 12/27/2023 Think about [...] Do you speak a language other than [place]ots[place] at [facility]? No 12/27/2023 Do you want [...] Completed 10/30/2023, Medical Devices Implanted Type Area Feeder Operator Automatic Device Identifier Shelf Expiration Date Model / Serial / Lot Loop Recorder LOOP RECORDER Left: Chest Insurance [employer] [facility] Advance Directives For more information, please contact: [phone] * Full Code (Latest Code Status on File) Date Activated Date Inactivated Comments 12/27/2023 3:21 AM 12/30/2023 2:53 PM -Attempt Resus citation if person has no pulse and is not breathing. -If no pulse or not breathing attempt CPR/CODE. -Call Rapid Response if patient is in distress. Care Teams Relations Specialist Relationship Specialty Start Date End Date Juarez Griffin MD [address] [place] [address] [place] [address] PCP - General General Internal Medicine 12/30/23
--- OUTSIDE RECORDS SUMMARY | 2025-04-16 12:22 | XMS_ITS | Clinical Summary ---
Author Organization [facility] Address [address] [place] [address] Care Team Providers Care Record Tabulating Clerk Name Role Phone Juarez Griffin MD Primary Care Provider [phone] Karen Naqvi DO Unavailable [phone] Allergies Active Allergy Reactions Criticality Noted Date [...] Team Description 03/12/2025 Orders Only External Location [address] [place] [address] Provider, External from Last 3 Months Immunizations [...] drink first t yue in the morning (EYE-AIRCRAFT SYSTEMS REPAIRER) to steady your nerves or to [...] PPSV23) 11/01/2021 09/06/2021 [facility]-Breast Cancer Screening 2023 [id number] Vaccine ( - season) 2024 10/07/2022, 08/21/2021 [...] this topic Medical Devices Implanted Type Area Veneer Clipper Helper Device Identifier Shelf Expiration Date Model / Serial / Lot Stent Ureteral Double Pigtail Pos 6fr 24cm - [id number] - [id number] Implanted:Qty: 1 on 04/11/2024 by Harvey Macdonald MD at [facility] Stent Right: [id number] 01/02/2026 [id number] / [id number] / [id number] Loop Recorder-2016 Implanted:04/28 (Quantity not on file) Chest PagerDuty [id number] / / Procedures Procedure Name Priority [...] Reactive Non Reactive 04/10/2024 7:25 PM EDT [facility] Comment:Screening for HIV 1 & 2 antibodies, and P24 antigen is NONREACTIVE. No confirmatory testing is required. Blood Venous blood specimen / Unknown Venipuncture / Unknown 04/10/2024 6:11 PM EDT 04/10/2024 6:27 PM EDT us Susan Mcclure MD LAB BLOOD ORDERABLES Final Re sult Performing Organization Address [facility] Co de Phone Number [facility] [address] [place] [address] * Hepatitis C Antibody - ED (04/10/2024 6:11 PM EDT) Hepatitis C Antibody Negative Negative 04/10/2024 7:24 PM EDT [facility] Blood Venous blood specimen / Unknown Venipuncture / Unknown 04/10/2024 6:11 PM EDT 04/10/2024 6:26 PM EDT us Susan Mcclure MD LAB BLOOD ORDERABLES Final Re sult Performing Organization Address [facility] de Phone Number [facility]ARE [facility] [address] [place] [address] * (ABNORMAL) Hemoglobin A1c (04/10/2024 6:11 PM EDT) Pathologist [facility] Hemoglobin A1c 6.3(H) <5.7 % 04/10/2024 [...] Adults <6.0% Children and Adolescents <7.5% Source: [place] [employer]. Standards of medical care in diabetes,2017. Diabetes Care.2017:40 (suppl 1):S1-S135. HbA1c assay performed by an ion-exchange chromatography method that is certified traceable to the [facility]. us Joselito Berrios MD LAB BLOOD ORDERABLES Final Re sult [facility]ARE [facility] [address] [place] [address] from Last 3 Months or Most Recently Relevant to Health Maintenance Additional Health Concerns Infection Onset Date Last Indicated ESBL Comment:+ 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 Source: [facility]. This patient will require contact precautions indefinitely. 04/01/2024 Insurance [employer] Advance Directives * Full Code (Latest Code Status on File) Date Activated Date Inactivated Comments 04/11/2024 10:12 AM 04/12/2024 3:22 PM Question Answer Comments Patient has decision-making capacity? Yes Care Teams Record Tabulating Clerk Relationship Specialty Start Date End Date Juarez Griffin MD [address] [place] [address] PCP - General 03/10/21 Karen Naqvi DO [address] [facility] [address] [place] [address] Referring Physician Obstetrics and Gynecology 09/23/24
--- OUTSIDE RECORDS SUMMARY | 2025-04-16 12:22 | XMS_ITS | Data Portability ---
Author Organization [facility] [place] [facility] [place] Alejandro ADMIN Address [address] [place] [address] Care Team Providers Care Rum Processing Operator Name Role Phone ZAHRAA BENAVIDES Primary Care Provider Assessment Encounter Date Assessment Date Assessment LastModified by Organization Details LastModified Time 08/07/2023 08/07/[address] scan images onto our system. Will review to determine the degree of stone burden bilaterally in the kidneys. Will also plan cystoscopy and pelvic exam in the office in the near future. [email or web address] Not available 08/07/2023 15:34:46 09/25/2023 09/25/2023 I [...] in 6 months with KUB and UA. [email or web address] Not available 09/25/2023 15:29:09 Plan of Treatment Reminders Order Date Submit Date Provider Last Modified By Organization Details Last Modified Time Details Appointments None recorded. Lab urinalysis, dipstick 2024 025 [email or web address] [facility] -105, [address], [place], [address], 5 14:18:52 CBC w/ diff 2024 025 [facility] (Registration ), [address], [place], [address], 5 16:11:55 CMP, serum or plasma 2024 025 [facility] (Registration ), [address], [place], [address], 5 15:39:03 ESR (erythrocyt e sedimentati on rate), blood [address] (Registration ), [address] [facility], [place], [address], 5 08:54:47 C-reactive protein, quantitativ e, serum or plasma [address] (Registration ), [address], [place], [address], 5 08:54:48 culture, urine 2024 025 [place] [facility], [address], [address], [place], [address], 5 19:09:52 urinalysis, dipstick 2022 023 [email or web address] [facility], [address] [facility], [address], [place], [address], 3 16:08:29 Referral None recorded. Procedures None [...] rmed at: [facility] [address] [place] [address] 1269 Lab Direc tor: Los carson PhD, Phone : [phone] Not Available [facility] [address] [facility], [place], [address], 04/03/2023 10:13:10 04/02/20 23 04/03/2023 FSH FSH, serum 5.4 mIU/m L Adult Femal e: Folli cular phase 3.5 - 12.5 Ovula tion phase 4.7 - 21.5 Lutea l phase 1.7 - 7.7 Postm enopa usal 25.8 - 134.8 Perfo rmed at: [facility] [address] [place] [address] 126 Lab Direc tor: Los carson PhD, Phone : [phone] Not Available [facility] ([facility]) [address] [facility], [place], [address], 04/03/2023 10:14:16 08/07/20 23 08/07/2023 urina lysis , dipst ick Leukocytes (reference range) trace Not Available [facility] [address] [facility] [address] [place] [address], [address], 08/07/2023 15:15:15 08/07/2008/07/2023 urina lysis , dipst ick Nitrite (reference range:) negati ve Not Available [facility] [address] [facility] [address], [place], [address], 08/07/2023 15:15:15 08/07/20 23 08/07/2023 urina lysis , dipst ick Urobilinogen (reference range) 0.2 Not Available [facility] [address] [place] [address] [address], [place], [address], 08/07/2023 15:15:15 08/07/2008/07/2023 urina lysis , dipst ick Protein (reference range) negati ve Not Available [facility] [address], [place], [address], 08/07/2023 15:15:15 08/07/2008/07/2023 urina lysis , dipst ick pH (reference range 5-8.5) 6.0 Not Available [facility] [address], [place], [address], 08/07/2023 15:15:15 08/07/2008/07/2023 urina lysis , dipst ick Blood (reference range:) small Not Available [facility] [address] [place] [address] [address], [place], [address], 08/07/2023 15:15:15 08/07/2008/07/2023 urina lysis , dipst ick Specific [place] (reference range) 1.015 Not Available [facility] [address], [place], [address], 08/07/2023 15:15:15 08/07/2008/07/2023 urina lysis , dipst ick Ketone (reference range) negati ve Not Available [address], [place], [address], 08/07/2023 15:15:15 08/07/2008/07/2023 urina lysis , dipst ick Bilirubin (reference range) negati ve Not Available [address], [place], [address], 08/07/2023 15:15:15 08/07/20 23 08/07/2023 urina lysis , dipst ick Glucose (reference range) [address] [facility] [address] [facility] [address], [place], [address], 08/07/2023 15:15:15 08/07/20 23 08/07/2023 urina lysis , dipst ick Color (reference range: yellow-brown ) Yellow Not Available [facility] [address] [facility] [address], [place], [address], 08/07/2023 15:15:15 02/24/20 25 02/23/2025 CBC AUTO W DIFF WBC 11.3 K/uL 4.0-10 .5 high Not Available [facility] ([facility]) [address] [facility], [place], [address], 02/23/2025 15:02:28 02/24/20 25 02/23/2025 CBC AUTO W DIFF RBC 5.7 M/mm3 4.2-6. 4 Not Available [facility] ([facility]) [address], [place], [address], 02/23/2025 15:02:28 02/24/20 25 02/23/2025 CBC AUTO W DIFF HGB 15.8 gm/dL 12.5-1 6.0 Not Available [facility] ([facility]) [address] [facility], [place], [address], 02/23/2025 15:02:28 02/24/20 25 02/23/2025 CBC AUTO W DIFF HCT 48.8 % 37.0-4 7.0 high Not Available [facility] ([facility]) [address], [place], [address], 02/23/2025 15:02:28 02/24/20 25 02/23/2025 CBC AUTO W DIFF MCV 86.4 fL 78-100 Not Available [facility] ([facility]) [address], [place], [address], 02/23/2025 15:02:28 02/24/20 25 02/23/2025 CBC AUTO W DIFF MCH 28.0 pg 27-31 Not Available [facility] ([facility]) [address], [place], [address], 02/23/2025 15:02:28 02/24/20 25 02/23/2025 CBC AUTO W DIFF MCHC 32.4 g/dL 32-36 Not Available [facility] ([facility]) [address], [place], [address], 02/23/2025 15:02:28 02/24/20 25 02/23/2025 CBC AUTO W DIFF RDW 13.7 % 11.5-1 4.0 Not Available [facility] ([facility]) [address], [place], [address], 02/23/2025 15:02:28 02/24/20 25 02/23/2025 CBC AUTO W DIFF platelet count 380 K/uL 150-45 0 Not Available [facility]) [address], [place], [address], 02/23/2025 15:02:28 02/24/20 25 02/23/2025 CBC AUTO W DIFF MPV 10.3 fL 6-9.5 high Not Available [facility]) [address], [place], [address], 02/23/2025 15:02:28 02/24/20 25 02/23/2025 CBC AUTO W DIFF neutrophil% 66.5 % 43-65 high Not Available [facility] ([facility]) [address], [place], [address], 02/23/2025 15:02:28 02/24/20 25 02/23/2025 CBC AUTO W DIFF lymphocyte% 24.3 % 20.5-4 5.5 Not Available [facility] ([facility]) [address], [place], [address], 02/23/2025 15:02:28 02/24/20 25 02/23/2025 CBC AUTO W DIFF monocyte% 6.0 % 5.5-11 .7 Not Available [facility] ([facility]) [address], [place], [address], 02/23/2025 15:02:02/24/20 25 02/23/2025 CBC AUTO W DIFF eosinophil% 2.3 % 0.9-2. 9 Not Available [facility]) [address] [facility], [place], [address], 02/23/2025 15:02:28 02/24/20 25 02/23/2025 CBC AUTO W DIFF basophil% 0.6 % 0.2-1. 0 Not Available [facility]) [address] [place], [address], 02/23/2025 15:02:28 02/24/20 25 02/23/2025 CBC AUTO W DIFF immature granulocytes % 0.3 % 0.0-0. 8 Not Available [facility]) [address] [place], [address], 02/23/2025 15:02:28 02/24/20 25 02/23/2025 CBC AUTO W DIFF nucleated red blood cells % 0.0 % Not Available [facility] ([facility]) [address] [place], [address], 02/23/2025 15:02:28 02/24/20 25 02/23/2025 CBC AUTO W DIFF neutrophil# 7.5 K/uL 2.2-4. 8 high Not Available [facility]) [address] [facility], [place], [address], 02/23/2025 15:02:28 02/24/20 25 02/23/2025 CBC AUTO W DIFF lymphocyte# 2.7 cell/ mcL 1.3-2. 9 Not Available [facility] ([facility]) [address], [place], [address], 02/23/2025 15:02:28 02/24/20 25 02/23/2025 CBC AUTO W DIFF monocyte# 0.7 cell/ mcL 0.3-0. 8 Not Available [facility]) [address] [facility], [place], [address], 02/23/2025 15:02:28 02/24/20 25 02/23/2025 CBC AUTO W DIFF eosinophil# 0.3 cell/ mcL 0-0.2 high Not Available [facility]) [address] [facility], [place], [address], 02/23/2025 15:02:28 02/24/20 25 02/23/2025 CBC AUTO W DIFF basophil# 0.1 cell/ mcL 0.0-1. 0 Not Available [facility] ([facility]) [address] [facility], [place], [address], 02/23/2025 15:02:28 02/24/20 25 02/23/2025 CBC AUTO W DIFF immature gramulocytes # 0.03 K/uL Not Available [facility] ([facility]) [address] [facility], [place], [address], 02/23/2025 15:02:28 02/24/20 25 02/23/2025 CBC AUTO W DIFF nucleated red blood cells # 0.00 K/uL Not Available [facility] ([facility]) [address] [facility], [place], [address], 02/23/2025 15:02:28 04/29/02/23/2025 CBC AUTO W DIFF manual differential NO Not Available [facility] ([facility]) [address], [place], [address], 02/23/2025 15:02:28 02/24/20 25 02/23/2025 COMP METAB OLIC PANEL sodium 138 mmol/ L 136-14 5 Not Available [facility] ([facility]) [address], [place], [address], 02/23/2025 15:39:03 02/24/20 25 02/23/2025 COMP METAB OLIC PANEL potassium 3.7 mmol/ L 3.6-5. 0 Not Available [facility] ([facility]) [address] , [place], [address], 02/23/2025 15:39:03 02/24/20 25 02/23/2025 COMP METAB OLIC PANEL chloride 98 mmol/ L 98-107 Not Available [facility]) [address] , [place], [address], 02/23/2025 15:39:03 02/24/20 25 02/23/2025 COMP METAB OLIC PANEL carbon dioxide 26.8 mmol/ L 21.0-3 2.0 Not Available [facility] ([facility]) [address] , [place], [address], 02/23/2025 15:39:03 02/24/20 25 02/23/2025 COMP METAB OLIC PANEL anion gap 16.9 Not Available [facility] ([facility]) [address] [place], [address], 02/23/2025 15:39:03 02/24/20 25 02/23/2025 COMP METAB OLIC PANEL glucose 200 mg/dL 70-120 high Not Available [facility] ([facility]) [address], [place], [address], 02/23/2025 15:39:03 02/24/20 25 02/23/2025 COMP METAB OLIC PANEL BUN 12 mg/dL 7-18 Not Available [facility] ([facility]) [address], [place], [address], 02/23/2025 15:39:03 02/24/20 25 02/23/2025 COMP METAB OLIC PANEL creatinine 1.1 mg/dL 0.6-1. 3 Not Available [facility] ([facility]) [address], [place], [address], 02/23/2025 15:39:03 02/24/20 25 02/23/2025 COMP METAB [...] brown ing kiney funct ion. Not Available [facility] ([facility]) [address] , [place], [address], 02/23/2025 15:39:03 02/24/20 25 02/23/2025 COMP METAB OLIC PANEL osmolality (calculated) 293 mOsm/ kg 275-30 1 OSMOL ALITY IS A CALCU LATIO N UTILI ZING THE SERUM /PLAS MA SODIU M, GLUCO SE AND UREA NITRO GEN (BUN) LEVEL S. FOR THE MOST ACCUR ATE RESUL T A MEASU RED SERUM OSMOL ALITY IS SUGGE STED. Not Available [facility] ([facility]) [address], [place], [address], 02/23/2025 15:39:03 02/24/20 25 02/23/2025 COMP METAB OLIC PANEL total protein 8.1 g/dL 6.4-8. 2 Not Available [facility] ([facility]) [address] , [place], [address], 02/23/2025 15:39:03 02/24/20 25 02/23/2025 COMP METAB OLIC PANEL albumin 3.6 g/dL 3.4-5. 0 Not Available [facility] ([facility]) [address] , [place], [address], 02/23/2025 15:39:03 02/24/20 25 02/23/2025 COMP METAB OLIC PANEL globulin 4.5 Not Available [facility] ([facility]) [address], [place], [address], 02/23/2025 15:39:03 02/24/20 25 02/23/2025 COMP METAB OLIC PANEL alb/glob ratio 0.8 0.7-2 Not Available [facility] ([facility]) [address], [place], [address], 02/23/2025 15:39:03 02/24/20 25 02/23/2025 COMP METAB OLIC PANEL calcium 10.2 mg/dL 8.5-10 .5 Not Available [facility] ([facility]) [address], [place], [address], 02/23/2025 15:39:03 02/24/20 25 02/23/2025 COMP METAB OLIC PANEL bilirubin total 0.60 mg/dL 0.10-1 .00 Not Available [facility]) [address] [place], [address], 02/23/2025 15:39:03 02/24/20 25 02/23/2025 COMP METAB OLIC PANEL AST (SGOT) 46 U/L 0-37 high Not Available [facility] [address], [place], [address], 02/23/2025 15:39:03 02/24/20 25 02/23/2025 COMP METAB OLIC PANEL ALT (SGPT) 78 U/L 0-65 high Not Available [facility] ([facility]) [address], [place], [address], 02/23/2025 15:39:03 02/24/20 25 02/23/2025 COMP METAB OLIC PANEL alk phosphatase 111 U/L 46-116 Not Available [facility]) [address] [facility], [place], [address], 02/23/2025 15:39:03 02/24/20 25 02/23/2025 C-KARLI CTIVE PROTE IN (CRP) C-reactive protein, quant 2.0 mg/dL 0.05-0 .300 high Not Available [facility]) [address] [facility], [place], [address], 02/23/2025 15:40:11 02/24/20 25 02/23/2025 SED RATE sed rate auto 9 0-20 Not Available [facility]) [address] [facility], [place], [address], 02/23/2025 15:43:35 02/24/20 25 02/27/2025 URINE CULTU RE,CO MPREH ENSIV E urine culture,comp rehensive FINAL REPORT abnormal Not Available [facility] ([facility]) [address] [facility], [place], [address], 02/27/2025 19:09:52 02/24/20 25 02/27/2025 URINE CULTU [...] ng units per mL Not Available [facility] ([facility]) [address] [facility], [place], [address], 02/27/2025 19:09:52 02/24/2002/27/2025 URINE CULTU RE,CO MPREH [...] as Cefta rolin e Not Available [facility] ([facility]) [address] [facility], [place], [address], 02/27/2025 19:09:52 02/24/2002/27/2025 URINE CULTU RE,CO MPREH [...] Vanco mycin R S Not Available [facility] ([facility]) [address] [facility], [place], [address], 02/27/2025 19:09:52 02/24/20 25 02/23/2025 urina lysis , dipst ick Leukocytes (reference range) trace Not Available [place] [address], [place], [address], 02/23/2025 14:16:48 02/24/20 25 02/23/2025 urina lysis , dipst ick Nitrite (reference range:) negati ve Not Available [place] [address] [address] [facility] [address], [place], [address], 02/23/2025 14:16:48 02/24/20 25 02/23/2025 urina lysis , dipst ick Urobilinogen (reference range) 0.2 Not Available [place] [address] [address] [facility] [address], [place], [address], 02/23/2025 14:16:48 02/24/20 25 02/23/2025 urina lysis , dipst ick Protein (reference range) negati ve Not Available [place] [address] [address] [facility] [address], [place], [address], 02/23/2025 14:16:48 02/24/20 25 02/23/2025 urina lysis , dipst ick pH (reference range 5-8.5) 6.0 Not Available [place] [address] [address] [facility] [address], [place], [address], 02/23/2025 14:16:48 02/24/20 25 02/23/2025 urina lysis , dipst ick Blood (reference range:) small Not Available [place] [address] [address] [facility] [address], [place], [address], 02/23/2025 14:16:48 02/24/20 25 02/23/2025 urina lysis , dipst ick Specific [place] (reference range) 1.015 Not Available [place] [address] [address] [facility] [address], [place], [address], 02/23/2025 14:16:48 02/24/20 25 02/23/2025 urina lysis , dipst ick Ketone (reference range) negati ve Not Available [place] [address] [address] [facility] [address], [place], [address], 02/23/2025 14:16:48 02/24/20 25 02/23/2025 urina lysis , dipst ick Bilirubin (reference range) negati ve Not Available [place] [address] [address] [facility] [address], [place], [address], 02/23/2025 14:16:48 02/24/20 25 02/23/2025 urina lysis , dipst ick Glucose (reference range) 500 Not Available [place] [address] [address] [facility] [address], [place], [address], 02/23/2025 14:16:48 02/24/20 25 02/23/2025 urina lysis , dipst ick Color (reference range: yellow-brown ) Dark Yellow Not Available [place] [address] [address] [facility] [address], [place], [address], 02/23/2025 14:16:48 Result Notes None recorded. Problems Name Problem SNOMED Code Status Onset Date Resolution Date Notes Provider Name and Address Organization Details Recorded Time Syncope 718705267 Active 2021 Malina Hernandez DO [address], [place], [address] , [facility] - [facility] [place] & [place] 15:33:04 Hypersomnia 84614922 Active 2021 Malina Hernandez DO [address] [facility], [place], [address] , [place] - [facility] & [place] 15:34:08 Problem Notes None recorded. Procedures Surgical History Date Name Laterality Status Provider Name and Address Organization Details Recorded Time 09/25/20 23 Cystoscopy-Female completed Silvio Valdez MD [address] [facility], [place], [address], [place] - [facility] [place] & [place] 09/25/2023 15:26:11 04/04/20 22 Date of Last Pap Smear completed Vandana Eugenioa [place] - [facility] [place] & [place] 10/03/2022 14:31:43 10/28/19 22 Regional Education Coordinator Surgery completed Vandana Dalla [place] - [facility] [place] & [place] 10/03/2022 14:45:45 10/28/19 17 Cholecystectomy completed Vandana Dalla [place] - [facility] & [place] 10/03/2022 14:32:27 10/28/19 14 Other completed Vandana Dalla [place] - [facility] [place] 10/03/2022 14:44:51 cardiac catheterization completed Vandana Dalla [place] - [facility] & [place] 10/03/2022 14:46:31 strabismus surgery completed Vandana Dalla [place] - [facility] [place] & [place] 10/03/2022 14:55:15 Imaging Results None recorded. Procedure Notes None recorded. Medical Equipment None Reported. Allergies Allergen ID Allergen Name Allergen Category Reaction Reaction Severity Criticality Documentation Date Start Date Code Code System Note Provider Name and Address Organization Details Recorded Time 79779 aspirin medicatio n chest pain wheezing moderate severe Not available 10/02/2022 1191 RxNorm Vandana Eugenioa null, [place] - [facility] & [place] 09:22:42 64150 Bactrim medicatio n arthralgi a (joint pain) muscle cramps severe severe Not available 10/02/2022 04631 9 RxNorm Vandana Eugenioa null, [place] - [facility] & [place] 09:22:49 38384 insect venom environme nt confusion cough dizziness fever flushing headache wheezing moderate moderate moderate mild moderate moderate moderate Not available 10/02/2022 92577 UNK Vandana catherine, [facility] - [facility] & [place] 2 09:23:13 12172 Pneumococ georges vaccine Not available anaphylax is chest pain facial swelling nausea rash wheezing moderate moderate moderate moderate moderate moderate Not available 10/02/2022 66240 7 RxNorm Vandana catherine, [facility] [place] [facility] & [place] 2 09:23:25 14079 rosuvasta tin medicatio n eye swelling facial swelling respirato ry distress moderate moderate moderate Not available 10/02/2022 88538 2 RxNorm Vandana catherine, [facility] - [facility] & [place] 2 09:23:35 Medications Name [...] % 80 /min 98.6 [degF] 49.6 kg/m2 795216. 86 g 116 mm[Hg] 100 mm[Hg] Bianca Smith [place] - [facility] 5 13:59:18 Date Recorded Body height Heart rate Oxygen saturation Oxygen saturation in Arterial blood by Pulse oximetry Heart rate Body temperature Body mass index (BMI) Body weight Systolic blood pressure Diastolic blood pressure Provider Name and Address Organization Details Last Updated DateTime 5 160.02 cm 60 /min 97 % 97 % 60 /min 97.7 [degF] 49.6 kg/m2 537850. 86 g 119 mm[Hg] 79 mm[Hg] Bianca ELLER - [facility] 5 13:31:54 Date Recorded Body height Body temperature Oxygen saturation Oxygen saturation in Arterial blood by Pulse oximetry Inhaled oxygen flow rate Heart rate Body mass index (BMI) Body weight Systolic blood pressure Diastolic blood pressure Provider Name and Address Organization Details Last Updated DateTime 3 157.48 cm 97.1 [degF] 98 % 98 % 2 L/min 89 /min 48.3 kg/m2 360039. 39 g 128 mm[Hg] 98 mm[Hg] Phillip Morrison [facility] & [place] 3 13:04:48 Date Recorded Body height Body mass index (BMI) Body weight Systolic blood pressure Diastolic blood pressure Provider Name and Address Organization Details Last Updated DateTime 08/07/2023 157.48 cm 49.4 kg/m2 613064.9 4 g 125 mm[Hg] 75 mm[Hg] Britney Yee [facility] & [place] 3 15:05:24 Date Recorded Body height Body mass index (BMI) Body weight Systolic blood pressure Diastolic blood pressure Provider Name and Address Organization Details Last Updated DateTime 09/25/2023 157.48 cm 51.2 kg/m2 185584.8 6 g 126 mm[Hg] 76 mm[Hg] Ioana Ayala [facility] & [place] 3 15:07:04 Social History Question Answer Notes LastModified by [email or web address]at ion Details LastModified Time Tobacco Smoking Status Never Smoker [facility] [place] 10/03/2022 14:32:09 Do You Have [...] Are You Currently In School? No MASTERS [email or web address] Information not available 09/25/2023 Sex: Female Functional Status Question Answer Note LastModified by Organizat ion Details LastModified Time Do you use any illicit or recreational drugs? No Information not available 10/03/2022 What is your level of alcohol consumption? 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 Occasional Information not available 10/03/2022 Mental Status Question Answer Note LastModified by Organization D etails LastModified Time Do you feel stressed (tense, restless, nervous, or anxious, or unable to sleep at night)? [id number] Information not available 10/03/2022 Family History Relationship [...] SNOMED-CT Code Diagnosis ICD10 Code Diagnosis Note [id number] [facility] [address] [facility],[address] [place] [address] 10/03/2022 14:07:23 10/03/2022 15:38:25 Syncope [id number] R55 She has been experienci ng these stereotypi georges passing out episodes for five years. No definite witnessed convulsion s but some associated brief confusion afterwards .will order EEG to rule out neurologic causes of syncope Hypersomnia 81384830 G47 .10 She describes some significan t episodes of pathologic al sleepiness . She will fall asleep without warning in the middle of talking. This is very infrequent but can be suggestive of narcolepsy . Will order PSG with MSLT to evaluate this in more detail. 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 [id number] Silvio Valdez MD [facility] [address] [place] [address],[address] [place] [address] 08/07/2023 14:35:57 08/07/2023 15:40:17 Recurrent urinary tract infection [id number] N39.0 Kidney stone 88401586 N2 0.0 Chronic th oracic back pain [id number] 88925 M54.6 Microscopic hematuria 19 [id number] R31.29 [id number] Silvio Valdez MD [facility] [address] [place] [address],[address] [place] [address] 09/25/2023 14:26:57 09/25/2023 15:25:02 Recurrent urinary tract infection 740555250 N39.0 Kidney stone 16338649 N2 0.0 Microscopic hematuria 19 9479928 R31.29 [id number] [facility] -105 [address] [facility] [address] [place] [address] 02/23/2025 13:48:33 02/23/2025 14:17:11 Recurrent urinary tract infection 982873943 N39.0 Will check lab work. Will send urine off for a culture. Will see patient back in 1 week. 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 Patient will follow up in 2 weeks. Call the office if anything persists or worsens. 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 see above Health Concerns Section Related Observation LastModified by Organization Detai ls LastModified Time None Recorded Concern Status LastModified by Organization Details LastModified Time None Recorded Advance Directives Directive N: Payers Insurance Date Sequence Insurance Name Policy Number Policy Valdivia Covered Member ID Valdivia Member ID Guarantor Name 09/18/2023 1 [facility] (POS II) [facility] [id number] [facility] 02/27/2025 1 [facility] (MEDICAID HMO) [facility] [id number] [facility] Notes Date Note Type Note [...] time. Patient states she is seen her cyber security specialist for this, was told it is possibly a lymphocele. Micheline Lackey MD [address] [facility], [place], [address], [facility] - [place] & [place] 04/18/2023 12:50:43 08/07/2023 text/html Location: [...] Valdez MD [address] [facility], [place], [address], [facility] - [facility] - [place] & [place] 08/07/2023 15:35:17 09/25/2023 text/html Patient [...] hysterectomy. Silvio Valdez MD [address], [place], [address], [facility] & [place] 09/25/2023 15:30:10 02/23/2025 text/html patient presents to [...] 2025. Marilou David APRN [address], [place], [address], [facility] & [place] 02/24/2025 10:59:38 03/02/2025 text/html patient presents to clinic for follow up. Urine culture results received. Patient denies any fever. She is scheduled to have surgery to remove her stone on . Marilou David APRN [address], [place], [address], [facility] - [facility] & [place] 03/02/2025 13:35:40 OBGyn Episode No OBEpisode recorded.
--- OUTSIDE RECORDS SUMMARY | 2025-04-16 12:22 | XMS_ITS | Continuity of Care Document ---
Author Organization [facility] Infectious Disease -[address] [place] [address] Care Team Providers Care Vp Product Marketing Name Role Phone ZAHRAA BENAVIDES Primary Care Provider [phone] Assessment No assessment recorded. Plan of Treatment [...] and Address Organization Details Recorded Time Syncope 542618954 Active 2021 Malina Hernandez DO [address], [place], [address] , [facility] & [place] 2 15:33:04 Hypersomnia 88204687 Active 2021 Malina Hernandez DO [address], [place], [address] [facility] & [place] 2 15:34:08 Problem Notes None recorded. Procedures Surgical History Date Name Laterality Status Provider Name and Address Organization Details Recorded Time 09/25/20 23 Cystoscopy-Female completed Silvio Valdez MD [address] , [place], [address], [facility] & [place] 09/25/2023 15:26:11 04/04/20 22 Date of Last Pap Smear completed Vandana Harris [facility] & [place] 10/03/2022 14:31:43 10/28/19 22 Licensed Audiologist Surgery completed Vandana ELLER - [facility] - [place] & [place] 10/03/2022 14:45:45 10/28/19 17 Cholecystectomy completed Vandana ELLER - [facility] & [place] 10/03/2022 14:32:27 10/28/19 14 Other completed Vandana ELLER - [facility] & [place] 10/03/2022 14:44:51 cardiac catheterization completed Vandana ELLER - [facility] & [place] 10/03/2022 14:46:31 strabismus surgery completed Vandana ELLER - [facility] & [place] 10/03/2022 14:55:15 Imaging Results None recorded. Procedure Notes None recorded. Medical Equipment None Reported. Allergies Allergen ID Allergen Name Allergen Category Reaction Reaction Severity Criticality Documentation Date Start Date Code Code System Note Provider Name and Address Organization Details Recorded Time 54666 aspirin medicatio n chest pain wheezing moderate severe Not available 10/02/2022 1191 RxNorm Vandana catherine, [place] - [facility] & [place] 09:22:42 11945 Bactrim medicatio n arthralgi a (joint pain) muscle cramps severe severe Not available 10/02/2022 25422 9 RxNorm Vandana catherine, [place] - [facility] & [place] 09:22:49 43463 insect venom environme nt confusion cough dizziness fever flushing headache wheezing moderate moderate moderate mild moderate moderate moderate Not available 10/02/2022 82012 UNK Vandana catherine, [place] - [facility] & [place] 09:23:13 69904 Pneumococ georges vaccine Not available anaphylax is chest pain facial swelling nausea rash wheezing moderate moderate moderate moderate moderate moderate Not available 10/02/2022 52483 7 RxNorm Vandana Steven null, [place] - [facility] & [place] 09:23:25 64643 rosuvasta tin medicatio n eye swelling facial swelling respirato ry distress moderate moderate moderate Not available 10/02/2022 53773 2 RxNorm [place] Reed - [facility] [place] & [place] 2 09:23:35 Medications Name Sig [...] % 60 /min 97.7 [degF] 49.6 kg/m2 718396. 86 g 119 mm[Hg] 79 mm[Hg] Bianca Smith [facility] & [place] 13:31:54 Social History Question Answer Notes LastModified by Organizat ion Details LastModified Time Tobacco Smoking Status [facility] [place] 10/03/2022 14:32:09 Do You Have An Advance Directive? No Information not available 10/03/2022 Are You Blind Or Do You Have Difficulty Seeing? No Information not available 10/03/2022 What Was The Date Of Your Most Recent Tobacco Screening? 09/17/2022 Information not available 10/03/2022 Do You Have Any Pets? Yes [email or web address] Information not available 09/25/2023 Are You Passively Exposed To Smoke? No Information not available 10/03/2022 Are You Currently In School? No [employer] [email or web address] Information not available 09/25/2023 Sex: Female Functional Status Question Answer Note LastModified by Organizat ion Details LastModified Time Do you use any illicit or recreational drugs? No Information not available 10/03/2022 What is your level of alcohol consumption? 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 Occasional Information not available 10/03/2022 Mental Status Question Answer Note LastModified by Organization D etails LastModified Time Do you feel stressed (tense, restless, nervous, or anxious, or unable to sleep at night)? [id number] Information not available 10/03/2022 Family History Relationship [...] SNOMED-CT Code Diagnosis ICD10 Code Diagnosis Note [id number] [facility] -[address] [address] 02/23/2025 13:48:33 02/23/2025 14:17:11 Recurrent urinary tract infection 195138824 N39.0 Will check lab work. Will send urine off for a culture. Will see patient back in 1 week. 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 Patient will follow up in 2 weeks. Call the office if anything persists or worsens. 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 Urine culture results received. Patient denies any fever. She is scheduled to have surgery to remove her stone on . 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
== END 2025-04-16 12:43 | disposition home or self-care (01) ==
LOC: INF 12:19
PROVIDERS: PCP Internal Medicine; Visit Provider Internal Medicine
DX: B96.4 Proteus (mirabilis) (morganii) as the cause of diseases classified elsewhere (principal); N39.0 Urinary tract infection, site not specified; Z16.24 Resistance to multiple antibiotics
CPT/HCPCS: 96523

== ENCOUNTER 2025-04-20 12:52 | Outpatient (CLI) | payer OTHER, SELFPAY ==
--- OUTSIDE RECORDS SUMMARY | 2025-04-20 12:57 | XMS_ITS | Clinical Summary ---
Author Organization [facility] Address [address] [facility] [address] [place] [address] Phone Care Team Providers Care Decorator Inspector Name Role Phone Zofia Perkins Unavailable Unavailable Conditions or Problems Problem Name Problem Code Onset Date Status Entry Date Provider Comment Standard Description Annotate Acute Pyelonephritis 29452799 (SNOMED CT) 01/07 Active 01/07 Malina Ames Acute pyelonephritis Obstructive uropathy with infection N13.6 (ICD-10-C M) 01/07 Active 01/07 Malina Ames Pyonephrosis Neutrophilic leukemoid reaction D72.823 (ICD-10-C M) 01/07 Active 01/07 Malina Ames Leukemoid reaction COPD 38830853 (SNOMED CT) 01/07 Active 01/07 Malina Ames Chronic obstructive pulmonary disease Morbid obesity due to excess calories E66.01 (ICD-10-C M) 01/07 Active 01/07 Malina Ames Morbid (severe) obesity due to excess calories DM Type II E11.9 (ICD-10-C M) 01/07 Active 01/07 Malina Ames Type 2 diabetes mellitus without complications Benign hypertensive heart disease with chronic diastolic heart failure (I50.32) 94372219 (SNOMED CT) 01/07 Active 01/07 Malina Ames Benign hypertension Medications Medication Instructions Start Date Stop Date Generic Name [facility] Provider FOSFOMYCIN TROMETHAMINE 3 GM PACK Take 1 packet by mouth as directed take 1 packet every 3-4 days (2 times weekly) fosfomycin tromethamine 45169094968 Calvin Villarreal MD PREDNISONE 20 MG TABS prednisone 09508276347 Milly Jabierbrianne VITAMIN C 500 MG CAPS twice a day ascorbic acid (vitamin c) 20139226566 Milly Mosquera HIPREX 1 GM TABS Take 1 tablet by mouth twice a day 02/18 methenamine hippurate 62791322934 Calvin Villarreal MD INDOMETHACIN 50 MG CAPS Take 1 capsule by mouth three times a day indomethacin 44546863378 Linda De Leon SUCRALFATE 1 GM TABS Take 1 tablet by mouth four times a day sucralfate 18744275872 Linda De Leon BUMETANIDE 2 MG TABS Take 1 tablet by mouth twice a day bumetanide 94030561180 Linda De Leon PRAVASTATIN SODIUM 10 MG TABS Take 1 tablet by mouth every night pravastatin 65437135181 Linda De Leon ENTRESTO 24-26 MG TABS Take 1 tablet by mouth twice a day sacubitril-valsa rtan 99486284479 Linda De Leon VENTOLIN HFA 108 (90 Base) MCG/ACT AERS Inhale 2 puff by mouth every four to six hours as needed albuterol sulfate 57368775434 Linda De Leon ADVAIR DISKUS 250-50 MCG/ACT AEPB Inhale 1 puff twice a day fluticasone propion-salmeter ol 67114913507 Linda De Leon OMEPRAZOLE 20 MG CPDR Take 1 capsule by mouth once a day omeprazole 14064286753 Linda De Leon METFORMIN HCL 500 MG TABS Take 1 tablet by mouth twice a day metformin 07658159917 Linda De Leon FARXIGA 10 MG TABS Take 10 mg by mouth once a day dapagliflozin propanediol 27929792801 Linda De Leon IBUPROFEN (IBUPROFEN) 800 MG TABS Take 1 tablet by mouth every six hours as needed IBUPROFEN Linda De Loen TIZANIDINE HCL 4 MG TABS Take 1 tablet by mouth as needed tizanidine 11441367904 Linda De Leon TRAMADOL HCL 50 MG TABS every twelve hours tramadol 13856045671 Linda De Leon NITROGLYCERIN 0.[address] 1 tablet under tongue as needed nitroglycerin 97755482320 Linda Moises ONDANSETRON HCL 4 MG TABS Take 1 tablet by mouth every eight hours as needed ondansetron hcl 67913026238 Linda Moises SPIRONOLACTONE 50 MG TABS Take 1 tablet by mouth once a day spironolactone 94187806834 Linda De Leon SITagliptin (JANUVIA) 25 MG tablet Take 1 tablet by mouth once a day JANOLIVER De Leon NEBIVOLOL HCL 5 MG TABS Take 1 tablet by mouth once a day nebivolol 72530120568 Jazieltyree De Leon GLYXAMBI 10-5 MG TABS Take 1 tablet by mouth once a day empagliflozin-li nagliptin 31451672899 Linda De Leon VENTOLIN HFA 108 (90 Base) MCG/ACT AERS INHALE TWO PUFFS BY MOUTH EVERY 4 TO 6 HOURS NEEDED 01/19 albuterol sulfate 19393942359 QIE qieuser TRAMADOL HCL 50 MG TABS Every 12 (Twelve) Hours. 01/19 tramadol 13204638041 QIE qieuser TIZANIDINE HCL 4 MG TABS Take 1 tablet by mouth As Needed. 01/19 tizanidine 98013553191 QIE qieuser SUCRALFATE 1 GM TABS Take 1 tablet by mouth 4 (Four) Times a Day. 01/19 sucralfate 68139403314 QIE qieuser SPIRONOLACTONE 50 MG TABS TAKE ONE TABLET BY MOUTH EVERY DAY 01/19 spironolactone 20343078275 QIE qieuser SITagliptin (JANUVIA) 25 MG tablet Take 1 tablet by mouth Daily. 01/19 JANUVIA QIE qieuser PRAVASTATIN SODIUM 10 MG TABS TAKE ONE TABLET BY MOUTH EVERY DAY AT BEDTIME 01/19 pravastatin 88779263362 QIE qieuser ONDANSETRON HCL 4 MG TABS Take 1 tablet by mouth Every 8 (Eight) Hours As Needed. 04/09 ondansetron hcl 30843354553 QIE qieuser OMEPRAZOLE 20 MG CPDR TAKE ONE CAPSULE BY MOUTH EVERY DAY 04/09 omeprazole 72566095407 QIE qieuser O2 (OXYGEN) 2 L by Alternating Nares route Every Night. OXYGEN QIE qieuser NITROGLYCERIN 0.[address] 1 tablet under the tongue As Needed for Chest Pain. 01/19 nitroglycerin 80789920498 QIE qieuser NEBIVOLOL HCL 5 MG TABS TAKE ONE TABLET BY MOUTH EVERY DAY 01/19 nebivolol 45682271533 QIE qieuser METFORMIN HCL 500 MG TABS Take 1 tablet by mouth 2 (Two) Times a Day. 01/19 metformin 73899447453 QIE qieuser IPRATROPIUM-ALBUT MIK 0.5-2.5 (3) MG/3ML SOLN ipratropium-albu terol 03227656056 QIE qieuser INDOMETHACIN 50 MG CAPS Take 1 capsule by mouth 3 (Three) Times a Day With Meals. 01/19 indomethacin 59155927147 QIE qieuser IBUPROFEN (IBUPROFEN) 800 MG TABS Take 1 tablet by mouth Every 6 (Six) Hours As Needed. 01/19 IBUPROFEN QIE qieuser ENTRESTO 24-26 MG TABS TAKE ONE TABLET BY MOUTH TWICE DAILY 01/19 sacubitril-valsa rtan 53935579222 QIE qieuser GLYXAMBI 10-5 MG TABS Take 1 tablet by mouth Daily. 01/19 empagliflozin-li nagliptin 14239697587 QIE qieuser FARXIGA 10 MG TABS Take 10 mg by mouth Daily. 01/19 dapagliflozin propanediol 19177652124 QIE qieuser BUMETANIDE 2 MG TABS TAKE ONE TABLET BY MOUTH TWICE DAILY 01/19 bumetanide 52984896623 QIE qieuser ADVAIR DISKUS 250-50 MCG/ACT AEPB Inhale 1 puff 2 (Two) Times a Day. 01/19 fluticasone propion-salmeter ol 23640213501 QIE qieuser CEFUROXIME AXETIL 500 MG TABS 1 tablet by mouth twice a day cefuroxime axetil 87212555695 Calvin Villarreal MD Medications Administered No information [...] smoking status SMOK STATUS Never smoker Toba tobacco baler smoking status MEDS REVIEW Done Documenta tion [...]
--- OUTSIDE RECORDS SUMMARY | 2025-04-20 12:58 | XMS_ITS | Continuity of Care Document ---
Author Organization [facility] Infectious Disease -105 Address [address] [facility] [facility] [address] [place] [address] Care Team Providers Care Knife Setter Assembler Name Role Phone ZAHRAA BENAVIDES Primary [...] and Address Organization Details Recorded Time Syncope 276688606 Active 2021 Malina Hernandez DO [address] [place], [address] [facility] & [place] 2 15:33:04 Hypersomnia 27064571 Active 2021 Malina Hernandez DO [address] [facility] [address] [facility] & [place] 15:34:08 Problem Notes None recorded. Procedures Surgical History Date Name Laterality Status Provider Name and Address Organization Details Recorded Time 09/25/20 23 Cystoscopy-Female completed Silvio Valdez MD [address] , [place], [address], [facility] & [place] 09/25/2023 15:26:11 04/04/20 22 Date of Last Pap Smear completed Vandana ELLER - [facility] & [place] 10/03/2022 14:31:43 10/28/19 22 Spray Mixer Surgery completed Vandana ELLER [place] [facility] [place] 10/03/2022 14:45:45 10/28/19 17 Cholecystectomy completed Vandana ELLER - [facility] [place] 10/03/2022 14:32:27 10/28/19 14 Other completed Vandana ELLER - [facility] [place] 10/03/2022 14:44:51 cardiac catheterization completed Vandana ELLER - [facility] - [place] 10/03/2022 14:46:31 strabismus surgery completed Vandana ELLER - [facility] & [place] 10/03/2022 14:55:15 Imaging Results None recorded. Procedure Notes None recorded. Medical Equipment None Reported. Allergies Allergen ID Allergen Name Allergen Category Reaction Reaction Severity Criticality Documentation Date Start Date Code Code System Note Provider Name and Address Organization Details Recorded Time 95127 aspirin medicatio n chest pain wheezing moderate severe Not available 10/02/2022 1191 RxNorm Vandana catherine, [place] - [facility] & [place] 2 09:22:42 80587 Bactrim medicatio n arthralgi a (joint pain) muscle cramps severe severe Not available 10/02/2022 80881 9 RxNorm Vandana catherine, [place] - [facility] & [place] 2 09:22:49 53455 insect venom environme nt confusion cough dizziness fever flushing headache wheezing moderate moderate moderate mild moderate moderate moderate Not available 10/02/2022 58619 UNK Vandana catherine, [place] - [facility] & [place] 2 09:23:13 69678 Pneumococ georges vaccine Not available anaphylax is chest pain facial swelling nausea rash wheezing moderate moderate moderate moderate moderate moderate Not available 10/02/2022 37415 7 RxNorm Vandana Steven null, [place] - [facility] & [place] 2 09:23:25 51256 rosuvasta tin medicatio n eye swelling facial swelling respirato ry distress moderate moderate moderate Not available 10/02/2022 02418 2 RxNorm Vandana [place] - [facility] - [place] & [place] 2 09:23:35 Medications Name Sig [...] % 60 /min 97.7 [degF] 49.6 kg/m2 049618. 86 g 119 mm[Hg] 79 mm[Hg] Bianca Smith [facility] & [place] 13:31:54 Social History Question Answer Notes LastModified by Organizat ion Details LastModified Time Tobacco Smoking Status Never Smoker Vandana catherine, [facility] & [place] 10/03/2022 14:32:09 Do You Have An Advance Directive? No Information not available 10/03/2022 Are You Blind Or Do You Have Difficulty Seeing? No Information not available 10/03/2022 What Was The Date Of Your Most Recent Tobacco Screening? 09/17/2022 Information not available 10/03/2022 Do You Have Any Pets? Yes [email or web address] Information not available 09/25/2023 Are You Passively Exposed To Smoke? No Information not available 10/03/2022 Are You Currently In School? No [employer] [email or web address] Information not available 09/25/2023 Sex: Female Functional Status Question Answer Note LastModified by Organizat ion Details LastModified Time Do you use any illicit or recreational drugs? No Information not available 10/03/2022 What is your level of alcohol consumption? 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 Occasional Information not available 10/03/2022 Mental Status Question Answer Note LastModified by Organization D etails LastModified Time Do you feel stressed (tense, restless, nervous, or anxious, or unable to sleep at night)? [id number] Information not available 10/03/2022 Family History Relationship [...] SNOMED-CT Code Diagnosis ICD10 Code Diagnosis Note [id number] [facility] [address] [facility] [address] [place] [address] 02/23/2025 13:48:33 02/23/2025 14:17:11 Recurrent urinary tract infection [id number] N39.0 Will check lab work. Will send urine off for a culture. Will see patient back in 1 week. 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 Patient will follow up in 2 weeks. Call the office if anything persists or worsens. 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 Urine culture results received. Patient denies any fever. She is scheduled to have surgery to remove her stone on . Marilou David, MANAGER OF DEVELOPMENT [address], [place], [address], [place] [facility] [place] 03/02/2025 13:35:40 OBGyn Episode No OBEpisode recorded.
--- OUTSIDE RECORDS SUMMARY | 2025-04-20 12:58 | XMS_ITS | Continuity of Care Document ---
Author Organization [facility] Infectious Disease -105 Address [address] [place] [address] Care Team Providers Care Parcel Post Clerk Name Role Phone SHERI BENAVIDESGHT Primary Care Provider Assessment No assessment recorded. Plan of Treatment Reminders Order Date Submit Date Provider Last Modified By Organization Details Last Modified Time Details Appointments None recorded. Lab urinalysis, dipstick [address] Infectious Disease -105, [address] [facility] [address], [place], [address], 14:18:52 CBC w/ diff 2024 025 [facility] (Registration ), [address], [place], [address], 16:11:55 CMP, serum or plasma 2024 025 [facility] (Registration ), [address] , [place], [address], 5 15:39:03 ESR (erythrocyt e sedimentati on rate), blood [address] (Registration ), [address] [facility], [place], [address], 5 08:54:47 C-reactive protein, quantitativ e, serum or plasma 2024 025 [email or web address] [facility] (Registration ), [address], [place], [address], 08:54:48 culture, urine 2024 025 [facility], [address], [address], [place], [address], 19:09:52 Referral None recorded. Procedures None recorded. [...] Available [facility] Infectious Disease -[facility] [address] [facility] [address], [place], [address], 02/23/2025 14:16:48 02/24/20 25 02/23/2025 urina lysis , dipst ick Nitrite (reference range:) negati ve Not Available [facility] Infectious Disease -[facility] [address] [facility] [address], [place], [address], 02/23/2025 14:16:48 02/24/20 25 02/23/2025 urina lysis , dipst ick Urobilinogen (reference range) 0.2 Not Available [facility] Infectious Disease -[facility] [address] [facility] [address], [place], [address], 02/23/2025 14:16:48 02/24/20 25 02/23/2025 urina lysis , dipst ick Protein (reference range) negati ve Not Available [facility] Infectious Disease -[facility] [address] [facility] [address], [place], [address], 02/23/2025 14:16:48 02/24/20 25 02/23/2025 urina lysis , dipst ick pH (reference range 5-8.5) 6.0 Not Available [place] [address] [address], [place], [address], 02/23/2025 14:16:48 02/24/20 25 02/23/2025 urina lysis , dipst ick Blood (reference range:) small Not Available [place] [address], [place], [address], 02/23/2025 14:16:48 02/24/20 25 02/23/2025 urina lysis , dipst ick Specific [place] (reference range) 1.015 Not Available [place] [address] [facility] [address], [place], [address], 02/23/2025 14:16:48 02/24/20 25 02/23/2025 urina lysis , dipst ick Ketone (reference range) negati ve Not Available [place] [address] [facility] [address], [place], [address], 02/23/2025 14:16:48 02/24/20 25 02/23/2025 urina lysis , dipst ick Bilirubin (reference range) negati ve Not Available [place] [address] [facility] [address], [place], [address], 02/23/2025 14:16:48 02/24/20 25 02/23/2025 urina lysis , dipst ick Glucose (reference range) 500 Not Available [place] [address] [facility] [address], [place], [address], 02/23/2025 14:16:48 02/24/20 25 02/23/2025 urina lysis , dipst ick Color (reference range: yellow-brown ) Dark Yellow Not Available [facility] Infectious Disease -[address], [place], [address], 02/23/2025 14:16:48 Result Notes None recorded. Problems Name Problem SNOMED Code Status Onset Date Resolution Date Notes Provider Name and Address Organization Details Recorded Time Syncope 169275842 Active 2021 Malina Hernandez DO [address] [facility], [place], [address] , [place] - [facility] - [place] & [place] 15:33:04 Hypersomnia 81741192 Active 2021 Malina Hernandez DO [address] [facility], [place], [address] , [place] [facility] [place] & [place] 15:34:08 Problem Notes None recorded. Procedures Surgical History Date Name Laterality Status Provider Name and Address Organization Details Recorded Time 09/25/20 23 Cystoscopy-Female completed Silvio Valdez MD [address] [facility], [place], [address], [place] [facility] [place] & [place] 09/25/2023 15:26:11 04/04/20 22 Date of Last Pap Smear completed Vandana Dalla [place] - [facility] [place] & [place] 10/03/2022 14:31:43 10/28/19 22 Exercise Physiology Professor Surgery completed Vandana Dalla [place] [facility] [place] & [place] 10/03/2022 14:45:45 10/28/19 17 Cholecystectomy completed Vandana Dalla [place] [facility] [place] & [place] 10/03/2022 14:32:27 10/28/19 14 Other completed Vandana Dalla [place] [facility] [place] 10/03/2022 14:44:51 cardiac catheterization completed Vandana Dalla [place] [facility] [place] & [place] 10/03/2022 14:46:31 strabismus surgery completed Vandana Dalla [place] [facility] [place] & [place] 10/03/2022 14:55:15 Imaging Results None recorded. Procedure Notes None recorded. Medical Equipment None Reported. Allergies Allergen ID Allergen Name Allergen Category Reaction Reaction Severity Criticality Documentation Date Start Date Code Code System Note Provider Name and Address Organization Details Recorded Time 23693 aspirin medicatio n chest pain wheezing moderate severe Not available 10/02/2022 1191 RxNorm Vandana catherine, [place] [facility] & [place] 2 09:22:42 48910 Bactrim medicatio n arthralgi a (joint pain) muscle cramps severe severe Not available 10/02/2022 64937 9 RxNorm Vandana catherine, [place] - [facility] & [place] 2 09:22:49 97913 insect venom environme nt confusion cough dizziness fever flushing headache wheezing moderate moderate moderate mild moderate moderate moderate Not available 10/02/2022 09638 UNK Vandana catherine, [place] [facility] & [place] 2 09:23:13 78010 Pneumococ georges vaccine Not available anaphylax is chest pain facial swelling nausea rash wheezing moderate moderate moderate moderate moderate moderate Not available 10/02/2022 95057 7 RxNorm Vandana catherine, [place] [facility] & [place] 2 09:23:25 64699 rosuvasta tin medicatio n eye swelling facial swelling respirato ry distress moderate moderate moderate Not available 10/02/2022 42874 2 RxNorm Vandana catherine, [place] [facility] & [place] 2 09:23:35 Medications Name Sig [...] % 80 /min 98.6 [degF] 49.6 kg/m2 005285. 86 g 116 mm[Hg] 100 mm[Hg] Bianca Smith [place] - [facility] - [facility] 13:59:18 Social History Question Answer Notes LastModified by Organizat Envia Lá Details LastModified Time Tobacco Smoking Status Never Smoker Vandana Beckergodfrey catherine, [place] - [facility] & [place] 10/03/2022 14:32:09 Do You Have An Advance Directive? No Information not available 10/03/2022 Are You Blind Or Do You Have Difficulty Seeing? No Information not available 10/03/2022 What Was The Date Of Your Most Recent Tobacco Screening? 09/17/2022 Information not available 10/03/2022 Do You Have Any Pets? Yes [email or web address] Information not available 09/25/2023 Are You Passively Exposed To Smoke? No Information not available 10/03/2022 Are You Currently In School? 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 No Information not available 10/03/2022 What is your level of alcohol consumption? 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 Occasional Information not available 10/03/2022 Mental Status Question Answer Note LastModified by Organization D etails LastModified Time Do you feel stressed (tense, restless, nervous, or anxious, or unable to sleep at night)? [id number] Information not available 10/03/2022 Family History Relationship [...] SNOMED-CT Code Diagnosis ICD10 Code Diagnosis Note [id number] Marilou Herbert in, LEAD TECHNICAL ARCHITECT [facility] Infectiou s Disease -[address] [place] [address] 02/23/2025 13:48:33 02/23/2025 14:17:11 Recurrent urinary tract infection 311126116 N39.0 Will check lab work. Will send [...] Member ID Guarantor Name 02/23/2025 1 [employer] [facility] (MEDICAID HMO) Lissy Valdez [id number] Lissy Valdez Notes Date Note Type Note [...] with urology in April 2025. Marilou David, LEAD TECHNICAL ARCHITECT [address], [place], [address], [facility] - [place] & [place] 02/24/2025 10:59:38 OBGyn Episode No OBEpisode recorded.
--- OUTSIDE RECORDS SUMMARY | 2025-04-20 12:58 | XMS_ITS | Encounter Summary ---
Author Organization [facility] Address [address] [place] [address] Care Team Providers Care Top Loader Name Role Phone Juarez Griffin MD Primary Care Provider [phone] Karen Naqvi DO Unavailable [phone] Encounter Details Date Type Department Care Team ([facility] st Contact Info) Description 02/12/2024 Orders Only External Location [address] [place] [address] Gennaro Cuevas MD [facility] [address] [address] Social History Tobacco Use Types Packs/Day Years [...] documented as of this encounter Care Teams Top Loader Relationship Specialty Start Date End Date Juarez Griffin MD [address] [place] [address] PCP - General 03/10/21 Karen Naqvi DO [facility] [address] [place] [address] Referring Physician Obstetrics and Gynecology 09/23/24 documented as of this encounter
--- OUTSIDE RECORDS SUMMARY | 2025-04-20 12:58 | XMS_ITS | Clinical Summary ---
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) to steady your nerves or to get [...] PPSV23) 11/01/2021 09/06/2021 [facility]-Breast Cancer Screening 2023 [id number] Vaccine ( - season) 2024 10/07/2022, 08/21/2021 [...] this topic Medical Devices Implanted Type Area Association Executive Device Identifier Shelf Expiration Date Model / Serial / Lot Stent Ureteral Double Pigtail Pos 6fr 24cm - [id number] - [id number] Implanted:Qty: 1 on 04/11/2024 by Harvey Macdonald MD at [facility] Stent Right: U[id number] 01/02/2026 [id number] / [id number] / [id number] Loop Recorder-2016 Implanted:04/28 (Quantity not on file) Chest [employer] [id number] / / Procedures Procedure Name Priority [...] Reactive Non Reactive 04/10/2024 7:25 PM EDT [facility] [facility] Comment:Screening for HIV 1 & 2 antibodies, and P24 antigen is NONREACTIVE. No confirmatory testing is required. Blood Venous blood specimen / Unknown Venipuncture / Unknown 04/10/2024 6:11 PM EDT 04/10/2024 6:27 PM EDT us Susan Mcclure MD LAB BLOOD ORDERABLES Final Re sult Performing Organization Address [facility] Co de Phone Number [facility] [address] [place] [address] * Hepatitis C Antibody - ED (04/10/2024 6:11 PM EDT) Hepatitis C Antibody Negative Negative 04/10/2024 7:24 PM EDT [facility] Blood Venous blood specimen / Unknown Venipuncture / Unknown 04/10/2024 6:11 PM EDT 04/10/2024 6:26 PM EDT us Susan Mcclure MD LAB BLOOD ORDERABLES Final Re sult Performing Organization Address [facility] de Phone Number [facility] [address] [place] [address] * (ABNORMAL) Hemoglobin A1c (04/10/2024 6:11 PM EDT) Pathologist [facility] Hemoglobin A1c 6.3(H) <5.7 % 04/10/2024 9:31 [...] Adults <6.0% Children and Adolescents <7.5% Source: [place] [employer]. Standards of medical care in diabetes,2017. Diabetes Care.2017:40 (suppl 1):S1-S135. HbA1c assay performed by an ion-exchange chromatography method that is certified traceable to the [facility]. 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 Source: [facility]. This patient will require contact precautions indefinitely. 04/01/2024 Insurance [employer] MEDICAID Advance Directives * Full Code (Latest Code Status on File) Date Activated Date Inactivated Comments 04/11/2024 10:12 AM 04/12/2024 3:22 PM Question Answer Comments Patient has decision-making capacity? Yes Care Teams Cadd Drafter Relationship Specialty Start Date End Date Juarez Griffin MD [address] [facility] [address] [place] [address] PCP - General 03/10/21 Karen Naqvi DO [address] [facility] [address] [place] [address] Referring Physician Obstetrics and Gynecology 09/23/24
--- OUTSIDE RECORDS SUMMARY | 2025-04-20 12:58 | XMS_ITS | Data Portability ---
Author Organization [place] [facility] [place] Alejandro ADMIN Address [address] [place] [id number] Care Team Providers Care Pumper Hand Name Role Phone ZAHRAA BENAVIDES Primary Care Provider Assessment Encounter Date Assessment Date Assessment LastModified by Organization Details LastModified Time 08/07/2023 08/07/[address] scan images onto our system. Will review to determine the degree of stone burden bilaterally in the kidneys. Will also plan cystoscopy and pelvic exam in the office in the near future. [email or web address] Not available 08/07/2023 15:34:46 09/25/2023 09/25/2023 I [...] in 6 months with KUB and UA. [email or web address] Not available 09/25/2023 15:29:09 Plan of Treatment Reminders Order Date Submit Date Provider Last Modified By Organization Details Last Modified Time Details Appointments None recorded. Lab urinalysis, dipstick 2024 025 [email or web address] [facility] -105, [address], [place], [address], 5 14:18:52 CBC w/ diff 2024 025 [facility] (Registration ), [address], [place], [address], 5 16:11:55 CMP, serum or plasma 2024 025 [facility] (Registration ), [address], [place], [address], 5 15:39:03 ESR (erythrocyt e sedimentati on rate), blood [address] (Registration ), [address] [facility], [place], [address], 5 08:54:47 C-reactive protein, quantitativ e, serum or plasma [address] (Registration ), [address], [place], [address], 5 08:54:48 culture, urine 2024 025 [place] [facility], [address], [address], [place], [address], 5 19:09:52 urinalysis, dipstick 2022 023 [email or web address] [facility], [address] [facility], [address], [place], [address], 3 16:08:29 Referral None recorded. Procedures None [...] usal 7.7 - 58.5 Perfo rmed at: [facility] n [address] [place] [address] 1268 Lab [place] tor: Los carson PhD, Phone : [phone] Not Available [facility] ([facility]) [address] [place], [address], 04/03/2023 10:13:10 04/02/20 23 04/03/2023 FSH FSH, serum 5.4 mIU/m L Adult Femal e: Folli cular phase 3.5 - 12.5 Ovula tion phase 4.7 - 21.5 Lutea l phase 1.7 - 7.7 Postm enopa usal 25.8 - 134.8 Perfo rmed at: [facility] n [address] [place] [address] 1265 Lab [facility] tor: Los carson PhD, Phone : [phone] Not Available [facility] ([facility]) [address] [facility], [place], [address], 04/03/2023 10:14:16 08/07/20 23 08/07/2023 urina lysis , dipst ick Leukocytes (reference range) trace Not Available [facility] [address] [facility] [address] [place] [address], [address], 08/07/2023 15:15:15 08/07/20 23 08/07/2023 urina lysis , dipst ick Nitrite (reference range:) negati ve Not Available [facility] [address] [facility] [address] [place] [address], [address], 08/07/2023 15:15:15 08/07/20 23 08/07/2023 urina lysis , dipst ick Urobilinogen (reference range) 0.2 Not Available [facility] [address] [place] [address] [address], [place], [address], 08/07/2023 15:15:15 08/07/20 23 08/07/2023 urina lysis , dipst ick Protein (reference range) negati ve Not Available [facility] [address], [place], [address], 08/07/2023 15:15:15 08/07/2008/07/2023 urina lysis , dipst ick pH (reference range 5-8.5) 6.0 Not Available [facility] [address], [place], [address], 08/07/2023 15:15:15 08/07/2008/07/2023 urina lysis , dipst ick Blood (reference range:) small Not Available [address], [place], [address], 08/07/2023 15:15:15 08/07/20 23 08/07/2023 urina lysis , dipst ick Specific [place] (reference range) 1.015 Not Available [address], [place], [address], 08/07/2023 15:15:15 08/07/20 23 08/07/2023 urina lysis , dipst ick Ketone (reference range) negati ve Not Available [address], [place], [address], 08/07/2023 15:15:15 08/07/20 23 08/07/2023 urina lysis , dipst ick Bilirubin (reference range) negati ve Not Available [address], [place], [address], 08/07/2023 15:15:15 08/07/20 23 08/07/2023 urina lysis , dipst ick Glucose (reference range) 250 Not Available [facility] [address] [facility] [address], [place], [address], 08/07/2023 15:15:15 08/07/20 23 08/07/2023 urina lysis , dipst ick Color (reference range: yellow-brown ) Yellow Not Available [facility] [address] [facility] [address], [place], [address], 08/07/2023 15:15:15 02/24/20 25 02/23/2025 CBC AUTO W DIFF WBC 11.3 K/uL 4.0-10 .5 high Not Available [facility] ([facility]) [address], [place], [address], 02/23/2025 15:02:28 02/24/20 25 02/23/2025 CBC AUTO W DIFF RBC 5.7 M/mm3 4.2-6. 4 Not Available [facility] ([facility]) [address] , [place], [address], 02/23/2025 15:02:28 02/24/20 25 02/23/2025 CBC AUTO W DIFF HGB 15.8 gm/dL 12.5-1 6.0 Not Available [facility] ([facility]) [address] , [place], [address], 02/23/2025 15:02:28 02/24/20 25 02/23/2025 CBC AUTO W DIFF HCT 48.8 % 37.0-4 7.0 high Not Available [facility] ([facility]) [address], [place], [address], 02/23/2025 15:02:28 02/24/20 25 02/23/2025 CBC AUTO W DIFF MCV 86.4 fL 78-100 Not Available [facility] ([facility]) [address], [place], [address], 02/23/2025 15:02:28 02/24/20 25 02/23/2025 CBC AUTO W DIFF MCH 28.0 pg 27-31 Not Available [facility] ([facility]) [address], [place], [address], 02/23/2025 15:02:28 02/24/20 25 02/23/2025 CBC AUTO W DIFF MCHC 32.4 g/dL 32-36 Not Available [facility] ([facility]) [address], [place], [address], 02/23/2025 15:02:28 02/24/20 25 02/23/2025 CBC AUTO W DIFF RDW 13.7 % 11.5-1 4.0 Not Available [facility] ([facility]) [address], [place], [address], 02/23/2025 15:02:28 02/24/20 25 02/23/2025 CBC AUTO W DIFF platelet count 380 K/uL 150-45 0 Not Available [facility] ([facility]) [address] , [place], [address], 02/23/2025 15:02:28 02/24/20 25 02/23/2025 CBC AUTO W DIFF MPV 10.3 fL 6-9.5 high Not Available [facility] ([facility]) [address], [place], [address], 02/23/2025 15:02:28 02/24/20 25 02/23/2025 CBC AUTO W DIFF neutrophil% 66.5 % 43-65 high Not Available [facility] ([facility]) [address], [place], [address], 02/23/2025 15:02:28 02/24/20 25 02/23/2025 CBC AUTO W DIFF lymphocyte% 24.3 % 20.5-4 5.5 Not Available [facility] ([facility]) [address], [place], [address], 02/23/2025 15:02:28 02/24/20 25 02/23/2025 CBC AUTO W DIFF monocyte% 6.0 % 5.5-11 .7 Not Available [facility] ([facility]) [address] [facility], [place], [address], 02/23/2025 15:02:28 02/24/20 25 02/23/2025 CBC AUTO W DIFF eosinophil% 2.3 % 0.9-2. 9 Not Available [facility] ([facility]) [address] [place], [address], 02/23/2025 15:02:28 02/24/20 25 02/23/2025 CBC AUTO W DIFF basophil% 0.6 % 0.2-1. 0 Not Available [facility] ([facility]) [address] [place], [address], 02/23/2025 15:02:28 02/24/20 25 02/23/2025 CBC AUTO W DIFF immature granulocytes % 0.3 % 0.0-0. 8 Not Available [facility] ([facility]) [address] [place], [address], 02/23/2025 15:02:28 02/24/20 25 02/23/2025 CBC AUTO W DIFF nucleated red blood cells % 0.0 % Not Available [facility] ([facility]) [address] [place], [address], 02/23/2025 15:02:28 02/24/20 25 02/23/2025 CBC AUTO W DIFF neutrophil# 7.5 K/uL 2.2-4. 8 high Not Available [facility] ([facility]) [address], [place], [address], 02/23/2025 15:02:28 02/24/20 25 02/23/2025 CBC AUTO W DIFF lymphocyte# 2.7 cell/ mcL 1.3-2. 9 Not Available [facility] ([facility]) [address], [place], [address], 02/23/2025 15:02:28 02/24/20 25 02/23/2025 CBC AUTO W DIFF monocyte# 0.7 cell/ mcL 0.3-0. 8 Not Available [facility] ([facility]) [address], [place], [address], 02/23/2025 15:02:28 02/24/20 25 02/23/2025 CBC AUTO W DIFF eosinophil# 0.3 cell/ mcL 0-0.2 high Not Available [facility] ([facility]) [address], [place], [address], 02/23/2025 15:02:28 02/24/20 25 02/23/2025 CBC AUTO W DIFF basophil# 0.1 cell/ mcL 0.0-1. 0 Not Available [facility] ([facility]) [address], [place], [address], 02/23/2025 15:02:28 02/24/20 25 02/23/2025 CBC AUTO W DIFF immature gramulocytes # 0.03 K/uL Not Available [facility] ([facility]) [address], [place], [address], 02/23/2025 15:02:28 02/24/20 25 02/23/2025 CBC AUTO W DIFF nucleated red blood cells # 0.00 K/uL Not Available [facility] ([facility]) [address], [place], [address], 02/23/2025 15:02:28 02/24/20 25 02/23/2025 CBC AUTO W DIFF manual differential NO Not Available [facility] ([facility]) [address] , [place], [address], 02/23/2025 15:02:28 02/24/20 25 02/23/2025 COMP METAB OLIC PANEL sodium 138 mmol/ L 136-14 5 Not Available [facility] ([facility]) [address] , [place], [address], 02/23/2025 15:39:03 02/24/20 25 02/23/2025 COMP METAB OLIC PANEL potassium 3.7 mmol/ L 3.6-5. 0 Not Available [facility] ([facility]) [address] , [place], [address], 02/23/2025 15:39:03 02/24/20 25 02/23/2025 COMP METAB OLIC PANEL chloride 98 mmol/ L 98-107 Not Available [facility] ([facility]) [address] , [place], [address], 02/23/2025 15:39:03 02/24/20 25 02/23/2025 COMP METAB OLIC PANEL carbon dioxide 26.8 mmol/ L 21.0-3 2.0 Not Available [facility] ([facility]) [address] , [place], [address], 02/23/2025 15:39:03 02/24/20 25 02/23/2025 COMP METAB OLIC PANEL anion gap 16.9 Not Available [facility] ([facility]) [address] , [place], [address], 02/23/2025 15:39:03 02/24/20 25 02/23/2025 COMP METAB OLIC PANEL glucose 200 mg/dL 70-120 high Not Available [facility] ([facility]) [address], [place], [address], 02/23/2025 15:39:03 02/24/20 25 02/23/2025 COMP METAB OLIC PANEL BUN 12 mg/dL 7-18 Not Available [facility] ([facility]) [address], [place], [address], 02/23/2025 15:39:03 02/24/20 25 02/23/2025 COMP METAB OLIC PANEL creatinine 1.1 mg/dL 0.6-1. 3 Not Available [facility] ([facility]) [address], [place], [address], 02/23/2025 15:39:03 02/24/20 25 02/23/2025 COMP METAB [...] brown ing kiney funct ion. Not Available [facility] ([facility]) [address], [place], [address], 02/23/2025 15:39:03 02/24/20 25 02/23/2025 COMP METAB OLIC PANEL osmolality (calculated) 293 mOsm/ kg 275-30 1 OSMOL ALITY IS A CALCU LATIO N UTILI ZING THE SERUM /PLAS MA SODIU M, GLUCO SE AND UREA NITRO GEN (BUN) LEVEL S. FOR THE MOST ACCUR ATE RESUL T A MEASU RED SERUM OSMOL ALITY IS SUGGE STED. Not Available [facility] ([facility]) [address], [place], [address], 02/23/2025 15:39:03 02/24/20 25 02/23/2025 COMP METAB OLIC PANEL total protein 8.1 g/dL 6.4-8. 2 Not Available [facility] ([facility]) [address] , [place], [address], 02/23/2025 15:39:03 02/24/20 25 02/23/2025 COMP METAB OLIC PANEL albumin 3.6 g/dL 3.4-5. 0 Not Available [facility] ([facility]) [address] , [place], [address], 02/23/2025 15:39:03 02/24/20 25 02/23/2025 COMP METAB OLIC PANEL globulin 4.5 Not Available [facility] ([facility]) [address], [place], [address], 02/23/2025 15:39:03 02/24/20 25 02/23/2025 COMP METAB OLIC PANEL alb/glob ratio 0.8 0.7-2 Not Available [facility] ([facility]) [address], [place], [address], 02/23/2025 15:39:03 02/24/20 25 02/23/2025 COMP METAB OLIC PANEL calcium 10.2 mg/dL 8.5-10 .5 Not Available [facility] ([facility]) [address], [place], [address], 02/23/2025 15:39:03 02/24/20 25 02/23/2025 COMP METAB OLIC PANEL bilirubin total 0.60 mg/dL 0.10-1 .00 Not Available [facility] ([facility]) [address] [place], [address], 02/23/2025 15:39:03 02/24/20 25 02/23/2025 COMP METAB OLIC PANEL AST (SGOT) 46 U/L 0-37 high Not Available [facility] ([facility]) [address] [place], [address], 02/23/2025 15:39:03 02/24/20 25 02/23/2025 COMP METAB OLIC PANEL ALT (SGPT) 78 U/L 0-65 high Not Available [facility] ([facility]) [address], [place], [address], 02/23/2025 15:39:03 02/24/20 25 02/23/2025 COMP METAB OLIC PANEL alk phosphatase 111 U/L 46-116 Not Available [facility] ([facility]) [address], [place], [address], 02/23/2025 15:39:03 02/24/20 25 02/23/2025 C-KARLI CTIVE PROTE IN (CRP) C-reactive protein, quant 2.0 mg/dL 0.05-0 .300 high Not Available [facility] ([facility]) [address] [facility], [place], [address], 02/23/2025 15:40:11 02/24/20 25 02/23/2025 SED RATE sed rate auto 9 0-20 Not Available [facility] ([facility]) [address], [place], [address], 02/23/2025 15:43:35 02/24/20 25 02/27/2025 URINE CULTU RE,CO MPREH ENSIV E urine culture,comp rehensive FINAL REPORT abnormal Not Available [facility] ([facility]) [address], [place], [address], 02/27/2025 19:09:52 02/24/20 25 02/27/2025 URINE CULTU [...] ng units per mL Not Available [facility] ([facility]) [address] [facility], [place], [address], 02/27/2025 19:09:52 02/24/20 25 02/27/2025 URINE CULTU [...] as Cefta rolin e Not Available [facility] ([facility]) [address] [facility], [place], [address], 02/27/2025 19:09:52 02/24/20 25 02/27/2025 URINE CULTU [...] Vanco mycin R S Not Available [facility] ([facility]) [address] [facility] [address], [place], [address], 02/27/2025 19:09:52 02/24/20 25 02/23/2025 urina lysis , dipst ick Leukocytes (reference range) trace Not Available [place] [address], [place], [address], 02/23/2025 14:16:48 02/24/20 25 02/23/2025 urina lysis , dipst ick Nitrite (reference range:) negati ve Not Available [place] [address], [place], [address], 02/23/2025 14:16:48 02/24/20 25 02/23/2025 urina lysis , dipst ick Urobilinogen (reference range) 0.2 Not Available [place] [address] [address] [facility] [address], [place], [address], 02/23/2025 14:16:48 02/24/20 25 02/23/2025 urina lysis , dipst ick Protein (reference range) negati ve Not Available [place] [address] [address] [facility] [address], [place], [address], 02/23/2025 14:16:48 02/24/20 25 02/23/2025 urina lysis , dipst ick pH (reference range 5-8.5) 6.0 Not Available [place] [address], [place], [address], 02/23/2025 14:16:48 02/24/20 25 02/23/2025 urina lysis , dipst ick Blood (reference range:) small Not Available [place] [address] [address] [facility] [address], [place], [address], 02/23/2025 14:16:48 02/24/20 25 02/23/2025 urina lysis , dipst ick Specific [place] (reference range) 1.015 Not Available [place] [address] [address] [facility] [address], [place], [address], 02/23/2025 14:16:48 02/24/20 25 02/23/2025 urina lysis , dipst ick Ketone (reference range) negati ve Not Available [place] [address] [address] [facility] [address], [place], [address], 02/23/2025 14:16:48 02/24/20 25 02/23/2025 urina lysis , dipst ick Bilirubin (reference range) negati ve Not Available [place] [address] [address] [facility] [address], [place], [address], 02/23/2025 14:16:48 02/24/20 25 02/23/2025 urina lysis , dipst ick Glucose (reference range) 500 Not Available [place] [address] [address] [facility] [address], [place], [address], 02/23/2025 14:16:48 02/24/20 25 02/23/2025 urina lysis , dipst ick Color (reference range: yellow-brown ) Dark Yellow Not Available [place] [address] [address] [facility] [address], [place], [address], 02/23/2025 14:16:48 Result Notes None recorded. Problems Name Problem SNOMED Code Status Onset Date Resolution Date Notes Provider Name and Address Organization Details Recorded Time Syncope 156010741 Active 2021 Malina Hernandez DO [address], [place], [address] , [place] [facility] [facility] [place] 15:33:04 Hypersomnia 17641853 Active 2021 Malina Hernandez DO [address] [facility], [address] , [place] [facility] & [place] 15:34:08 Problem Notes None recorded. Procedures Surgical History Date Name Laterality Status Provider Name and Address Organization Details Recorded Time 09/25/20 23 Cystoscopy-Female completed Silvio Valdez MD [address], [place], [address], [place] [facility] [facility] & [place] 09/25/2023 15:26:11 04/04/20 22 Date of Last Pap Smear completed Vandana Eugenioa [place] [facility] & [place] 10/03/2022 14:31:43 10/28/19 22 Microwave Remote Sensing Scientist Surgery completed Vandana Dalla [place] 10/03/2022 14:45:45 10/28/19 17 Cholecystectomy completed Vandana Eugenioa [place] [facility] & [place] 10/03/2022 14:32:27 10/28/19 14 Other completed Vandana Dalla [place] 10/03/2022 14:44:51 cardiac catheterization completed Vandana Dalla [place] 10/03/2022 14:46:31 strabismus surgery completed Vandana Dalla [place] 10/03/2022 14:55:15 Imaging Results None recorded. Procedure Notes None recorded. Medical Equipment None Reported. Allergies Allergen ID Allergen Name Allergen Category Reaction Reaction Severity Criticality Documentation Date Start Date Code Code System Note Provider Name and Address Organization Details Recorded Time 86060 aspirin medicatio n chest pain wheezing moderate severe Not available 10/02/2022 1191 RxNorm Vandana Eugenioa null, [place] [facility] & [place] 09:22:42 04512 Bactrim medicatio n arthralgi a (joint pain) muscle cramps severe severe Not available 10/02/2022 10882 9 RxNorm Vandana Dalla null, [place] [facility] [facility] & [place] 2 09:22:49 74188 insect venom environme nt confusion cough dizziness fever flushing headache wheezing moderate moderate moderate mild moderate moderate moderate Not available 10/02/2022 23492 UNK Vandana catherine, [place] - [facility] & [place] 2 09:23:13 10640 Pneumococ georges vaccine Not available anaphylax is chest pain facial swelling nausea rash wheezing moderate moderate moderate moderate moderate moderate Not available 10/02/2022 98869 7 RxNorm Vandana catherine, [place]ATHIE[place] - [facility] & [place] 2 09:23:25 87021 rosuvasta tin medicatio n eye swelling facial swelling respirato ry distress moderate moderate moderate Not available 10/02/2022 73588 2 RxNorm Vandana catherine, [place]ATHIE[place] - [facility] & [place] 2 09:23:35 Medications Name [...] % 80 /min 98.6 [degF] 49.6 kg/m2 505195. 86 g 116 mm[Hg] 100 mm[Hg] Bianca Smith [place] - [facility] 5 13:59:18 Date Recorded Body height Heart rate Oxygen saturation Oxygen saturation in Arterial blood by Pulse oximetry Heart rate Body temperature Body mass index (BMI) Body weight Systolic blood pressure Diastolic blood pressure Provider Name and Address Organization Details Last Updated DateTime 5 160.02 cm 60 /min 97 % 97 % 60 /min 97.7 [degF] 49.6 kg/m2 968549. 86 g 119 mm[Hg] 79 mm[Hg] Bianca Smith [place] [facility] & [place] 5 13:31:54 Date Recorded Body height Body temperature Oxygen saturation Oxygen saturation in Arterial blood by Pulse oximetry Inhaled oxygen flow rate Heart rate Body mass index (BMI) Body weight Systolic blood pressure Diastolic blood pressure Provider Name and Address Organization Details Last Updated DateTime 3 157.48 cm 97.1 [degF] 98 % 98 % 2 L/min 89 /min 48.3 kg/m2 676231. 39 g 128 mm[Hg] 98 mm[Hg] Phillip Morrison [facility] & [place] 3 13:04:48 Date Recorded Body height Body mass index (BMI) Body weight Systolic blood pressure Diastolic blood pressure Provider Name and Address Organization Details Last Updated DateTime 08/07/2023 157.48 cm 49.4 kg/m2 457153.9 4 g 125 mm[Hg] 75 mm[Hg] Britney Yee [facility] & [place] 3 15:05:24 Date Recorded Body height Body mass index (BMI) Body weight Systolic blood pressure Diastolic blood pressure Provider Name and Address Organization Details Last Updated DateTime 09/25/2023 157.48 cm 51.2 kg/m2 108833.8 6 g 126 mm[Hg] 76 mm[Hg] Ioana Ayala [facility] & [place] 3 15:07:04 Social History Question Answer Notes LastModified by [email or web address] ion Details LastModified Time Tobacco Smoking Status Never Smoker Vandana catherine, [facility] & [place] 10/03/2022 14:32:09 Do You Have An Advance Directive? No Information not available 10/03/2022 Are You Blind Or Do You Have Difficulty Seeing? No Information not available 10/03/2022 What Was The Date Of Your Most Recent Tobacco Screening? 09/17/2022 Information not available 10/03/2022 Do You Have Any Pets? Yes [email or web address] Information not available 09/25/2023 Are You Passively Exposed To Smoke? No Information not available 10/03/2022 Are You Currently In School? No [employer] [email or web address] Information not available 09/25/2023 Sex: Female Functional Status Question Answer Note LastModified by Organizat ion Details LastModified Time Do you use any illicit or recreational drugs? No Information not available 10/03/2022 What is your level of alcohol consumption? 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 Occasional Information not available 10/03/2022 Mental Status Question Answer Note LastModified by Organization D etails LastModified Time Do you feel stressed (tense, restless, nervous, or anxious, or unable to sleep at night)? [id number] Information not available 10/03/2022 Family History Relationship [...] SNOMED-CT Code Diagnosis ICD10 Code Diagnosis Note [id number] Malina Hernandez, DO [facility] [address] [facility] [place] [address] 10/03/2022 14:07:23 10/03/2022 15:38:25 Syncope [id number] R55 She has been experienci ng these stereotypi georges passing out episodes for five years. No definite witnessed convulsion s but some associated brief confusion afterwards .will order EEG to rule out neurologic causes of syncope Hypersomnia 53506835 G47 .10 She describes some significan t episodes of pathologic al sleepiness . She will fall asleep without warning in the middle of talking. This is very infrequent but can be suggestive of narcolepsy . Will order PSG with MSLT to evaluate this in more detail. 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 [id number] Silvio Valdez MD [facility] Urology [address] [place] [address],[address] [place] [address] 08/07/2023 14:35:57 08/07/2023 15:40:17 Recurrent urinary tract infection 152983871 N39.0 Kidney stone 44002067 N2 0.0 Chronic th oracic back pain 7992024446 88451 M54.6 Microscopic hematuria 19 2442005 R31.29 [id number] Silvio Valdez MD [facility] [address] [place] [address],[address] [place] [address] 09/25/2023 14:26:57 09/25/2023 15:25:02 Recurrent urinary tract infection 615891418 N39.0 Kidney stone 84532680 N2 0.0 Microscopic hematuria 19 6790349 R31.29 [id number] [facility]105 [address] [facility] [address] [place] [address] 02/23/2025 13:48:33 02/23/2025 14:17:11 Recurrent urinary tract infection 646616628 N39.0 Will check lab work. Will send urine off for a culture. Will see patient back in 1 week. 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 Patient will follow up in 2 weeks. Call the office if anything persists or worsens. 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 (MEDICAID HMO) [facility] [id number] [facility] Notes Date Note Type Note Provider Name [...] time. Patient states she is seen her cream gatherer for this, was told it is possibly a lymphocele. Micheline Lackey MD [address] [facility], [place], [address], [place] - [facility] - [place] & [place] 04/18/2023 12:50:43 08/07/2023 text/html Location: Histor y [...] is status post hysterectomy. Silvio Valdez MD [address] [facility], [place], [address], [facility] - [facility] - [place] & [place] 08/07/2023 15:35:17 09/25/2023 text/html Patient returns to [...] hysterectomy. Silvio Valdez MD [address], [place], [address], [facility] & [place] 09/25/2023 15:30:10 02/23/2025 text/html patient presents to [...] 2025. Marilou David APRN [address], [place], [address], [facility] - [facility] & [place] 02/24/2025 10:59:38 03/02/2025 text/html patient presents to clinic for follow up. Urine culture results received. Patient denies any fever. She is scheduled to have surgery to remove her stone on . Marilou David APRN [address], [place], [address], [facility] & [place] 03/02/2025 13:35:40 OBGyn Episode No OBEpisode recorded.
--- OUTSIDE RECORDS SUMMARY | 2025-04-20 12:58 | XMS_ITS | Referral Summary ---
Author Organization [employer] Address [address] [place] [address] Care Team Providers Care Lead Software Test Engineer Name Role Phone Juarez Griffin MD Primary Care Provider [phone] Allergies Active Allergy Reactions Criticality Noted Date [...] place to sleep or slept in a long term (including now)? No 12/27/2023 Utilities Answer Date [...] Do you speak a language other than Citizen Of [place] [facility]? No 12/27/2023 Do you want help [...] on file Medical Devices Implanted Type Area Mine Inspector Device Identifier Shelf Expiration Date Model / Serial / Lot Loop Recorder LOOP RECORDER Left: Chest Insurance [facility] Advance Directives For more information, please contact: [phone] * Full Code (Latest Code Status on File) Date Activated Date Inactivated Comments 12/27/2023 3:21 AM 12/30/2023 2:53 PM -Attempt Resus citation if person has no pulse and is not breathing. -If no pulse or not breathing attempt CPR/CODE. -Call Rapid Response if patient is in distress. Care Teams Lead Software Test Engineer Relationship Specialty Start Date End Date Juarez Griffin MD [address] [place] [address] [place] [id number] PCP - General General Internal Medicine 12/30/23
--- OUTSIDE RECORDS SUMMARY | 2025-04-20 12:58 | XMS_ITS | Encounter Summary ---
Author Organization [facility] Address [address] [place] [address] Care Team Providers Care Oyster Sorter Name Role Phone Juarez Griffin MD Primary Care Provider [phone] Karen Naqvi DO Unavailable [phone] Encounter Details Date Type Department Care Team ([facility] st Contact Info) Description 03/12/2025 Orders Only External Location [address] [place] [address] Provider, External Social History Tobacco Use Types [...] drink first t yue in the morning (EYE-SECURITY SHIFT SUPERVISOR) to steady your nerves or to [...] Comment:+ 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 Source: [facility] [place] [employer]. This patient will require contact precautions indefinitely. 04/01/2024 Assessment Noted Time A fall risk assessment has been complete d for the patient 10/05/2024 1:53 PM EST A Body Mass Index follow-up plan has been documented for the patient 04/12/2024 12:42 PM EDT documented as of this encounter Care Teams Oyster Sorter Relationship Specialty Start Date End Date Juarez Griffin MD [address] [facility] [address] [place] [address] PCP - General 03/10/21 Karen Naqvi DO [address] [facility] [address] [place] [address] Referring Physician Obstetrics and Gynecology 09/23/24 documented as of this encounter
--- OUTSIDE RECORDS SUMMARY | 2025-04-20 12:58 | XMS_ITS | Clinical Summary ---
Author Organization [employer] Address [address] [place] [address] Care Team Providers Care Shoe Cementer Name Role Phone Juarez Griffin MD Primary Care Provider [phone] Allergies Active Allergy Reactions Criticality Noted Date [...] place to sleep or slept in a long-term (including now)? No 12/27/2023 Utilities Answer Date [...] harm? Never 12/27/2023 How often does anyone, brnaden burton family and friends, scream or curse at you? Never 12/27/2023 Housing Stability Answer Date Recorded What is your living situation today? I have a [facility] place to live 12/27/2023 Think about [...] Do you speak a language other than [place] at [facility]? No 12/27/2023 Do you want help [...] Completed 10/30/2023, Medical Devices Implanted Type Area Forepart Laster Device Identifier Shelf Expiration Date Model / Serial / Lot Loop Recorder LOOP RECORDER Left: Chest Insurance [employer] [facility] [place] [facility] [place] Advance Directives For more information, please contact: [phone] * Full Code (Latest Code Status on File) Date Activated Date Inactivated Comments 12/27/2023 3:21 AM 12/30/2023 2:53 PM -Attempt Resus citation if person has no pulse and is not breathing. -If no pulse or not breathing attempt CPR/CODE. -Call Rapid Response if patient is in distress. Care Teams Shoe Cementer Relationship Specialty Start Date End Date Juarez Griffin MD [address] [place] [address] PCP - General General Internal Medicine 12/30/23
== END 2025-04-20 13:05 | disposition home or self-care (01) ==
LOC: INF 12:53
PROVIDERS: PCP Internal Medicine; Visit Provider Internal Medicine
DX: N39.0 Urinary tract infection, site not specified (principal); B96.4 Proteus (mirabilis) (morganii) as the cause of diseases classified elsewhere; Z16.24 Resistance to multiple antibiotics
CPT/HCPCS: 96523

== ENCOUNTER 2025-04-23 13:02 | Outpatient (CLI) | payer OTHER, SELFPAY ==
--- OUTSIDE RECORDS SUMMARY | 2025-04-23 13:04 | XMS_ITS | Continuity of Care Document ---
Author Organization [facility] Infectious Disease -105 Address [address] [facility] [address] [place] [address] Care Team Providers Care E Commerce Manager Name Role Phone ZAHRAA BENAVIDES Primary [...] and Address Organization Details Recorded Time Syncope 206050010 Active 2021 Malina Hernandez DO [address] [place], [address] [facility] & [place] 2 15:33:04 Hypersomnia 48705474 Active 2021 Malina Hernandez DO [address] [facility] [address] [facility] & [place] 15:34:08 Problem Notes None recorded. Procedures Surgical History Date Name Laterality Status Provider Name and Address Organization Details Recorded Time 09/25/20 23 Cystoscopy-Female completed Silvio Valdez MD [address] , [place], [address], [facility] & [place] 09/25/2023 15:26:11 04/04/20 22 Date of Last Pap Smear completed Vandana ELLER - [facility] & [place] 10/03/2022 14:31:43 10/28/19 22 Creel Operator Surgery completed Vandana ELLER - [facility] - [place] & [place] 10/03/2022 14:45:45 10/28/19 17 Cholecystectomy completed Vandana ELLER - [facility] - [place] & [place] 10/03/2022 14:32:27 10/28/19 14 Other completed Vandana ELLER - [facility] - [place] & [place] 10/03/2022 14:44:51 cardiac catheterization completed Vandana ELLER - [facility] - [place] & [place] 10/03/2022 14:46:31 strabismus surgery completed Vandana ELLER - [facility] & [place] 10/03/2022 14:55:15 Imaging Results None recorded. Procedure Notes None recorded. Medical Equipment None Reported. Allergies Allergen ID Allergen Name Allergen Category Reaction Reaction Severity Criticality Documentation Date Start Date Code Code System Note Provider Name and Address Organization Details Recorded Time 27155 aspirin medicatio n chest pain wheezing moderate severe Not available 10/02/2022 1191 RxNorm Vandana catherine, [place] - [facility] & [place] 2 09:22:42 11011 Bactrim medicatio n arthralgi a (joint pain) muscle cramps severe severe Not available 10/02/2022 00235 9 RxNorm Vandaan catherine, [place] - [facility] & [place] 2 09:22:49 45479 insect venom environme nt confusion cough dizziness fever flushing headache wheezing moderate moderate moderate mild moderate moderate moderate Not available 10/02/2022 44439 UNK Vandana catherine, [place] - [facility] & [place] 2 09:23:13 38412 Pneumococ georges vaccine Not available anaphylax is chest pain facial swelling nausea rash wheezing moderate moderate moderate moderate moderate moderate Not available 10/02/2022 39850 7 RxNorm Vandana Steven null, [place] - [facility] & [place] 2 09:23:25 05693 rosuvasta tin medicatio n eye swelling facial swelling respirato ry distress moderate moderate moderate Not available 10/02/2022 18335 2 RxNorm Vandana [place] - [facility] - [place] & [place] 2 09:23:35 Medications Name Sig Start Date [...] % 60 /min 97.7 [degF] 49.6 kg/m2 003032. 86 g 119 mm[Hg] 79 mm[Hg] Bianca Smith [facility] & [place] 13:31:54 Social History Question Answer Notes LastModified by Organizat ion Details LastModified Time Tobacco Smoking Status Never Smoker Vandana catherine, [facility] & [place] 10/03/2022 14:32:09 Do You Have An Advance Directive? No Information not available 10/03/2022 Are You Blind Or Do You Have Difficulty Seeing? No Information not available 10/03/2022 What Was The Date Of Your Most Recent Tobacco Screening? 09/17/2022 Information not available 10/03/2022 Do You Have Any Pets? Yes [email or web address] Information not available 09/25/2023 Are You Passively Exposed To Smoke? No Information not available 10/03/2022 Are You Currently In School? No MASTERS [email or web address] Information not available 09/25/2023 Sex: Female Functional [...] anxious, or unable to sleep at night)? [id number] Information not available 10/03/2022 Family History Relationship [...] SNOMED-CT Code Diagnosis ICD10 Code Diagnosis Note [id number] [facility]105 [address] [facility] [address] [place] [address] 02/23/2025 13:48:33 02/23/2025 14:17:11 Recurrent urinary tract infection 931404688 N39.0 Will check lab work. Will send urine off for a culture. Will see patient back in 1 week. 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 Patient will follow up in 2 weeks. Call the office if anything persists or worsens. 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 Urine culture results received. Patient denies any fever. She is scheduled to have surgery to remove her stone on . Marilou David, DEBATE DIRECTOR [address], [place], [address], [place] - [facility] - [place] & [place] 03/02/2025 13:35:40 OBGyn Episode No OBEpisode recorded.
--- OUTSIDE RECORDS SUMMARY | 2025-04-23 13:04 | XMS_ITS | Encounter Summary ---
Author Organization [facility] Address [address] [place] [address] Care Team Providers Care Silk Screen Cutter Name Role Phone Juarez Griffin MD Primary Care Provider [phone] Karen Naqvi DO Unavailable [phone] Encounter Details Date Type Department Care Team ([facility] st Contact Info) Description 03/12/2025 Orders Only External Location [address] [place] [address] Provider, External Social History Tobacco Use Types [...] drink first t yue in the morning (EYE-SHOW HOST OR HOSTESS) to steady your nerves or to get [...] Comment:+ 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 Source: [facility]. This patient will require contact precautions indefinitely. 04/01/2024 Assessment Noted Time A fall risk assessment has been complete d for the patient 10/05/2024 1:53 PM EST A Body Mass Index follow-up plan has been documented for the patient 04/12/2024 12:42 PM EDT documented as of this encounter Care Teams Silk Screen Cutter Relationship Specialty Start Date End Date Juarez Griffin MD [address] [facility] [address] [place] [address] PCP - General 03/10/21 Karen Naqvi DO [address] [facility] [address] [place] [address] Referring Physician Obstetrics and Gynecology 09/23/24 documented as of this encounter
--- OUTSIDE RECORDS SUMMARY | 2025-04-23 13:04 | XMS_ITS | Clinical Summary ---
Author Organization [facility] Address [address] [facility] [address] [place] [address] Phone Care Team Providers Care Tank Wagon Driver Name Role Phone Zofia Perkins Unavailable Unavailable Conditions or Problems Problem Name Problem Code Onset Date Status Entry Date Provider Comment Standard Description Annotate Acute Pyelonephritis 85469039 (SNOMED CT) 01/07 Active 01/07 Malina Ames Acute pyelonephritis Obstructive uropathy with infection N13.6 (ICD-10-C M) 01/07 Active 01/07 Malina Ames Pyonephrosis Neutrophilic leukemoid reaction D72.823 (ICD-10-C M) 01/07 Active 01/07 Malina Ames Leukemoid reaction COPD 67104924 (SNOMED CT) 01/07 Active 01/07 Malina Ames Chronic obstructive pulmonary disease Morbid obesity due to excess calories E66.01 (ICD-10-C M) 01/07 Active 01/07 Malina Ames Morbid (severe) obesity due to excess calories DM Type II E11.9 (ICD-10-C M) 01/07 Active 01/07 Malina Ames Type 2 diabetes mellitus without complications Benign hypertensive heart disease with chronic diastolic heart failure (I50.32) 71101217 (SNOMED CT) 01/07 Active 01/07 Malina Ames Benign hypertension Medications Medication Instructions Start Date Stop Date Generic Name [facility] Provider FOSFOMYCIN TROMETHAMINE 3 GM PACK Take 1 packet by mouth as directed take 1 packet every 3-4 days (2 times weekly) fosfomycin tromethamine 15177232402 Calvin Villarreal MD PREDNISONE 20 MG TABS prednisone 82871558236 Milly Jabierbrianne VITAMIN C 500 MG CAPS twice a day ascorbic acid (vitamin c) 11611504952 Milly Mosquera HIPREX 1 GM TABS Take 1 tablet by mouth twice a day 02/18 methenamine hippurate 96036037871 Calvin Villarreal MD INDOMETHACIN 50 MG CAPS Take 1 capsule by mouth three times a day indomethacin 30273156707 Linda De Leon SUCRALFATE 1 GM TABS Take 1 tablet by mouth four times a day sucralfate 14544598800 Linda De Leon BUMETANIDE 2 MG TABS Take 1 tablet by mouth twice a day bumetanide 35545953348 Linda D eLeon PRAVASTATIN SODIUM 10 MG TABS Take 1 tablet by mouth every night pravastatin 01144793596 Linda De Leon ENTRESTO 24-26 MG TABS Take 1 tablet by mouth twice a day sacubitril-valsa rtan 05936554241 Linda De Leon VENTOLIN HFA 108 (90 Base) MCG/ACT AERS Inhale 2 puff by mouth every four to six hours as needed albuterol sulfate 50989144899 Linda De Leon ADVAIR DISKUS 250-50 MCG/ACT AEPB Inhale 1 puff twice a day fluticasone propion-salmeter ol 04997833039 Linda De Leon OMEPRAZOLE 20 MG CPDR Take 1 capsule by mouth once a day omeprazole 02300160187 Linda De Leon METFORMIN HCL 500 MG TABS Take 1 tablet by mouth twice a day metformin 21074094097 Linda De Leon FARXIGA 10 MG TABS Take 10 mg by mouth once a day dapagliflozin propanediol 52072934209 Linda De Leon IBUPROFEN (IBUPROFEN) 800 MG TABS Take 1 tablet by mouth every six hours as needed IBUPROFEN Linda De Leon TIZANIDINE HCL 4 MG TABS Take 1 tablet by mouth as needed tizanidine 59863373416 Linda De Leon TRAMADOL HCL 50 MG TABS every twelve hours tramadol 63162969283 Linda De Leon NITROGLYCERIN 0.[address] 1 tablet under tongue as needed nitroglycerin 54307161228 Linda Moises ONDANSETRON HCL 4 MG TABS Take 1 tablet by mouth every eight hours as needed ondansetron hcl 12142112541 Linda Moises SPIRONOLACTONE 50 MG TABS Take 1 tablet by mouth once a day spironolactone 41541523344 Linda De Leon SITagliptin (JANUVIA) 25 MG tablet Take 1 tablet by mouth once a day JANOLIVER De Leon NEBIVOLOL HCL 5 MG TABS Take 1 tablet by mouth once a day nebivolol 55795565735 Jazieltyree De Leon GLYXAMBI 10-5 MG TABS Take 1 tablet by mouth once a day empagliflozin-li nagliptin 64470734424 Linda De Leon VENTOLIN HFA 108 (90 Base) MCG/ACT AERS INHALE TWO PUFFS BY MOUTH EVERY 4 TO 6 HOURS NEEDED 01/19 albuterol sulfate 25558843109 QIE qieuser TRAMADOL HCL 50 MG TABS Every 12 (Twelve) Hours. 01/19 tramadol 18333622589 QIE qieuser TIZANIDINE HCL 4 MG TABS Take 1 tablet by mouth As Needed. 01/19 tizanidine 05398465495 QIE qieuser SUCRALFATE 1 GM TABS Take 1 tablet by mouth 4 (Four) Times a Day. 01/19 sucralfate 69171893639 QIE qieuser SPIRONOLACTONE 50 MG TABS TAKE ONE TABLET BY MOUTH EVERY DAY 01/19 spironolactone 75332582512 QIE qieuser SITagliptin (JANUVIA) 25 MG tablet Take 1 tablet by mouth Daily. 01/19 JANUVIA QIE qieuser PRAVASTATIN SODIUM 10 MG TABS TAKE ONE TABLET BY MOUTH EVERY DAY AT BEDTIME 01/19 pravastatin 73693395486 QIE qieuser ONDANSETRON HCL 4 MG TABS Take 1 tablet by mouth Every 8 (Eight) Hours As Needed. 04/09 ondansetron hcl 08902908404 QIE qieuser OMEPRAZOLE 20 MG CPDR TAKE ONE CAPSULE BY MOUTH EVERY DAY 04/09 omeprazole 04667838734 QIE qieuser O2 (OXYGEN) 2 L by Alternating Nares route Every Night. OXYGEN QIE qieuser NITROGLYCERIN 0.[address] 1 tablet under the tongue As Needed for Chest Pain. 01/19 nitroglycerin 19079821306 QIE qieuser NEBIVOLOL HCL 5 MG TABS TAKE ONE TABLET BY MOUTH EVERY DAY 01/19 nebivolol 76329593594 QIE qieuser METFORMIN HCL 500 MG TABS Take 1 tablet by mouth 2 (Two) Times a Day. 01/19 metformin 27195067808 QIE qieuser IPRATROPIUM-ALBUT MIK 0.5-2.5 (3) MG/3ML SOLN ipratropium-albu terol 43263749279 QIE qieuser INDOMETHACIN 50 MG CAPS Take 1 capsule by mouth 3 (Three) Times a Day With Meals. 01/19 indomethacin 43440972522 QIE qieuser IBUPROFEN (IBUPROFEN) 800 MG TABS Take 1 tablet by mouth Every 6 (Six) Hours As Needed. 01/19 IBUPROFEN QIE qieuser ENTRESTO 24-26 MG TABS TAKE ONE TABLET BY MOUTH TWICE DAILY 01/19 sacubitril-valsa rtan 28321652882 QIE qieuser GLYXAMBI 10-5 MG TABS Take 1 tablet by mouth Daily. 01/19 empagliflozin-li nagliptin 73606168023 QIE qieuser FARXIGA 10 MG TABS Take 10 mg by mouth Daily. 01/19 dapagliflozin propanediol 90729829375 QIE qieuser BUMETANIDE 2 MG TABS TAKE ONE TABLET BY MOUTH TWICE DAILY 01/19 bumetanide 84317858014 QIE qieuser ADVAIR DISKUS 250-50 MCG/ACT AEPB Inhale 1 puff 2 (Two) Times a Day. 01/19 fluticasone propion-salmeter ol 16709182597 QIE qieuser CEFUROXIME AXETIL 500 MG TABS 1 tablet by mouth twice a day cefuroxime axetil 58742528872 Calvin Villarreal MD Medications Administered No information available. Allergies, Adverse Reactions, Alerts Allergy Name Reaction Description Start Date Severity Statu s Provider AUGMENTIN anaphylaxis Critical Active Teraanth godfrey Arnold SULFAMETHOXAZOLE-TRIM ETHOPRIM Other (See Comments) Moderate Active Keke Amaral ROSUVASTATIN Anaphylaxis Critical Active Raquel Amaral PNEUMOCOCCAL 13-RAFAEL CONJ VACC Anaphylaxis Critical Active Keke Amaral BEE VENOM Anaphylaxis Critical Active Keke Amarla ASPIRIN Anaphylaxis Critical Active Keke Amaral LEVOFLOXACIN Moderate Active Gabriela Byrd RN Results Date Name Value Unit Range Flag Description Clinical Lists Update: Prelo ad VAPE_USE Never Tobacco smok ing status Office Visit: Office Visit: room 7 ORALTOBACUSE Never Tobacco smoking status SMOK STATUS Never smoker Toba regional account manager smoking status MEDS REVIEW Done Documenta tion [...]
--- OUTSIDE RECORDS SUMMARY | 2025-04-23 13:04 | XMS_ITS | Clinical Summary ---
Author Organization [facility] Address [address] [place] [address] Care Team Providers Care Missile Control Pilot Name Role Phone Juarez Griffin MD Primary Care Provider [phone] Karen Naqvi DO Unavailable [phone] Allergies Active Allergy Reactions Criticality Noted Date [...] Team Description 03/12/2025 Orders Only External Location [address] [place] [address] Provider, External from Last 3 Months Immunizations [...] drink first t yue in the morning (EYE-NATURE PHOTOGRAPHER) to steady your nerves or to get [...] PPSV23) 11/01/2021 09/06/2021 [facility]-Breast Cancer Screening 2023 OLL-RTOUY-76 Vaccine ( - season) 2024 10/07/2022, 08/21/2021 [...] this topic Medical Devices Implanted Type Area Geothermal Plant Manager Device Identifier Shelf Expiration Date Model / Serial / Lot Stent Ureteral Double Pigtail Pos 6fr 24cm - [id number] - [id number] Implanted:Qty: 1 on 04/11/2024 by Harvey Macdonald MD at [facility] Stent Right: [id number] 01/02/2026 [id number] / [id number] / [id number] Loop Recorder-2016 Implanted:04/28 (Quantity not on file) Chest Viropro [id number] / / Procedures Procedure Name Priority [...] Reactive Non Reactive 04/10/2024 7:25 PM EDT [facility] Comment:Screening for HIV 1 & 2 antibodies, and P24 antigen is NONREACTIVE. No confirmatory testing is required. Blood Venous blood specimen / Unknown Venipuncture / Unknown 04/10/2024 6:11 PM EDT 04/10/2024 6:27 PM EDT us Susan Mcclure MD LAB BLOOD ORDERABLES Final Re sult Performing Organization Address [facility] Co de Phone Number [facility] [address] [place] [address] * Hepatitis C Antibody - ED (04/10/2024 6:11 PM EDT) Hepatitis C Antibody Negative Negative 04/10/2024 7:24 PM EDT [facility] Blood Venous blood specimen / Unknown Venipuncture / Unknown 04/10/2024 6:11 PM EDT 04/10/2024 6:26 PM EDT us Susan Mcclure MD LAB BLOOD ORDERABLES Final Re sult Performing Organization Address [facility] de Phone Number [facility]ARE [facility] [address] [place] [address] * (ABNORMAL) Hemoglobin A1c (04/10/2024 6:11 PM [...] Adults <6.0% Children and Adolescents <7.5% Source: [place] [employer]. Standards of medical care in diabetes,2017. Diabetes Care.2017:40 (suppl 1):S1-S135. HbA1c assay performed by an ion-exchange chromatography method that is certified traceable to the [facility]. us Joselito Berrios MD LAB BLOOD ORDERABLES Final Re sult [facility] [address] [place] [address] from Last 3 Months or Most Recently [...] Patient has decision-making capacity? Yes Care Teams Missile Control Pilot Relationship Specialty Start Date End Date Juarez Griffin MD [address] [place] [address] PCP - General 03/10/21 Karen Naqvi DO [address] [facility] [address] [place] [address] Referring Physician Obstetrics and Gynecology 09/23/24
--- OUTSIDE RECORDS SUMMARY | 2025-04-23 13:04 | XMS_ITS | Encounter Summary ---
Author Organization [facility] Address [address] [place] [address] Care Team Providers Care Telemetry Rn Name Role Phone Juarez Griffin MD Primary Care Provider [phone] Karen Naqvi DO Unavailable [phone] Encounter Details Date Type Department Care Team ([facility] st Contact Info) Description 02/12/2024 Orders Only External Location [address] [place] [address] Gennaro Cuevas MD [facility] [address] [place] [address] Social History Tobacco Use Types Packs/Day Years [...] Comment:+ 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 Source: [facility]. This patient will require contact precautions indefinitely. 04/01/2024 documented as of this encounter Care Teams Telemetry Rn Relationship Specialty Start Date End Date Juarez Griffin MD [address] [place] [address] PCP - General 03/10/21 Karen Naqvi DO [facility] [address] [place] [address] Referring Physician Obstetrics and Gynecology 09/23/24 documented as of this encounter
--- OUTSIDE RECORDS SUMMARY | 2025-04-23 13:04 | XMS_ITS | Data Portability ---
Author Organization [facility] ABHAY MejiasS ADAK CLOSED Address [address] [facility] [address] [place] [address] Assessment No assessment recorded. Plan of Treatment Reminders Order Date Submit Date Provider Last Modified By Organization Details Last Modified Time Details Appointments None recorded. Lab None recorded. Referral aquatic therapy referral 2017 018 [email or web address] 2 Not available 8 11:14:18 cognitive behavioral therapy referral 2017 018 [email or web address] 2 [facility], [address] [facility], [facility] [address], [place], [address], 8 11:14:19 occupationa l therapist referral 2017 018 2 Not available 8 11:14:17 Procedures None recorded. Surgeries None recorded. Imaging None recorded. Medication Orders None recorded. Patient TargetsNo targets recorded. Patient Instructions Encounter Date Encounter Id Patient Instructions Last Modified By Organization Details Last Modified Time 08/13/2018 [id number] learning about healthy weight Not available 08/13/2018 [...] Name and Address Organization Details Recorded Time 232715 aspirin medicatio n Not available Not available Not available 08/13/2018 [id number] RxNorm Melinda Hudson [facility] 8 10:01:54 Medications Name Sig Start [...] Address Organization Details Last Updated DateTime 8 890268. 12 g 48.2 kg/m2 160.02 cm 18 /min 61 /min 132 mm[Hg] 96 mm[Hg] Melinda Hudson [facility] 8 10:06:40 Social History Question Answer Notes LastModified by Organizat ion Details LastModified Time Tobacco Smoking Status Never Smoker Melinda Hudson [facility] 08/13/2018 10:02:03 What Was The Date Of Your Most Recent Tobacco Screening? 08/13/2018 Information n ot available 12/15/2019 Sex: Unknown Functional Status None recorded. Mental Status None recorded. Family History Relationship Description Onset Age of this Age Resolved Age Notes LastModified by Organization Details LastModified Time Father No current problems or disability [email or web address] Not available 08/13 10:02:01 Mother No current problems or disability [email or web address] Not available 08/13 10:02:01 Medical History Condition [...] SNOMED-CT Code Diagnosis ICD10 Code Diagnosis Note [id number] CLIFF BARBER MD RHEUMATOL OGY [address] [place] [address] 08/13/2018 09:13:44 08/13/2018 10:48:47 Pain of multiple joints 43016086 M25.50 she has clinical features of Dixon OA. no features of an inflammato ry arthritis noted. no features of rheumatoid noted. 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 would suggest to avoid steroids and start OT as stated below. she can RTC with me as prn. 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 Health Concerns Section Related Observation LastModified by Organization Detai ls LastModified Time None Recorded Concern Status LastModified by Organization Details LastModified Time None Recorded Advance Directives Directive None Recorded Payers Insurance Date Sequence Insurance Name Policy Number Policy Valdivia Covered Member ID Valdivia Member ID Guarantor Name 02/03/2024 1 [facility] (MEDICAID H[facility]) [facility] [id number] 01/24/2024 1 [place] [employer] [place] FFS/TRADITIO NAL Lissy C [place] [id number] Lissy [facility] 02/04/2024 1 [facility] [id number] Lissy [facility] 01/31/2024 1 [facility] [id number] Lissy [facility] [id number] 01 Lissy [facility] Notes Date Note Type Note Provider [...] and a normal TSH. CLIFF BARBER MD [facility], [place], [address], [facility] 08/13/2018 17:00:47 OBGyn Episode No OBEpisode recorded.
--- OUTSIDE RECORDS SUMMARY | 2025-04-23 13:04 | XMS_ITS | Continuity of Care Document ---
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 Plan of Treatment Reminders Order Date Submit Date Provider Last Modified By Organization Details Last Modified Time Details Appointments None recorded. Lab urinalysis, dipstick [address] Infectious Disease -105, [address] [facility] [facility] [address], [place], [address], 14:18:52 CBC w/ diff 2024 025 [facility] (Registration ), [address], [place], [address], 16:11:55 CMP, serum or plasma 2024 025 [facility] (Registration ), [address] , [place], [address], 5 15:39:03 ESR (erythrocyt e sedimentati on rate), blood [address] (Registration ), [address] [facility], [place], [address], 5 08:54:47 C-reactive protein, quantitativ e, serum or plasma 2024 025 [email or web address] [facility] (Registration ), [address], [place], [address], 08:54:48 culture, urine 2024 025 [facility], [address], [address], [place], [address], 19:09:52 Referral None recorded. Procedures None recorded. Surgeries None recorded. Imaging None recorded. Medication Orders None recorded. Patient TargetsNo targets recorded. Patient InstructionsNo instructions recorded. Reason for Referral None Reported. Results Created Date Observation Date Name Description Value Unit Range Abnormal Flag Note LastModifiedBy Organization Detail LastModifiedTime 02/24/2002/23/2025 urina lysis , dipst ick Leukocytes (reference range) trace Not Available [facility] Infectious Disease -[facility] [address] [facility] [address], [place], [address], 02/23/2025 14:16:48 02/24/20 25 02/23/2025 urina lysis , dipst ick Nitrite (reference range:) negati ve Not Available [facility] Infectious Disease -[facility] [address] [facility] [address], [place], [address], 02/23/2025 14:16:48 02/24/20 25 02/23/2025 urina lysis , dipst ick Urobilinogen (reference range) 0.2 Not Available [facility] Infectious Disease -[facility] [address] [facility] [address], [place], [address], 02/23/2025 14:16:48 02/24/20 25 02/23/2025 urina lysis , dipst ick Protein (reference range) negati ve Not Available [facility] Infectious Disease -[facility] [address] [facility] [address], [place], [address], 02/23/2025 14:16:48 02/24/20 25 02/23/2025 urina lysis , dipst ick pH (reference range 5-8.5) 6.0 Not Available [place] [address], [place], [address], 02/23/2025 14:16:48 02/24/20 25 02/23/2025 urina lysis , dipst ick Blood (reference range:) small Not Available [place] [address], [place], [address], 02/23/2025 14:16:48 02/24/20 25 02/23/2025 urina lysis , dipst ick Specific Talmo (reference range) 1.015 Not Available [place] [address] [address] [facility] [address], [place], [address], 02/23/2025 14:16:48 02/24/20 25 02/23/2025 urina lysis , dipst ick Ketone (reference range) negati ve Not Available [place] [address] [address] [facility] [address], [place], [address], 02/23/2025 14:16:48 02/24/20 25 02/23/2025 urina lysis , dipst ick Bilirubin (reference range) negati ve Not Available [place] [address] [address] [facility] [address], [place], [address], 02/23/2025 14:16:48 02/24/20 25 02/23/2025 urina lysis , dipst ick Glucose (reference range) 500 Not Available [place] [address] [address] [facility] [address], [place], [address], 02/23/2025 14:16:48 02/24/20 25 02/23/2025 urina lysis , dipst ick Color (reference range: yellow-brown ) Dark Yellow Not Available [facility] Infectious Disease -[address], [place], [address], 02/23/2025 14:16:48 Result Notes None recorded. Problems Name Problem SNOMED Code Status Onset Date Resolution Date Notes Provider Name and Address Organization Details Recorded Time Syncope 781853748 Active 2021 Malina Hernandez DO [address] [facility], [place], [address] , [place] - [facility] [place] [facility] [place] 15:33:04 Hypersomnia 01923102 Active 2021 Malina Hernandez DO [address] [facility] [facility], [place], [address] , [place] [facility] [place] 15:34:08 Problem Notes None recorded. Procedures Surgical History Date Name Laterality Status Provider Name and Address Organization Details Recorded Time 09/25/20 23 Cystoscopy-Female completed Silvio Valdez MD [address] [facility] [facility], [place], [address], [place] - [facility] [place] 09/25/2023 15:26:11 04/04/20 22 Date of Last Pap Smear completed Vandana Dalla [place] - [facility] [place] 10/03/2022 14:31:43 10/28/19 22 Implement Mechanic Surgery completed Vandana Dalla [place] [facility] [place] 10/03/2022 14:45:45 10/28/19 17 Cholecystectomy completed Vandana Dalla [place] [facility] [place] 10/03/2022 14:32:27 10/28/19 14 Other completed Vandana Dalla [place] [facility] [place] 10/03/2022 14:44:51 cardiac catheterization completed Vandana Dalla [place] [facility] [place] 10/03/2022 14:46:31 strabismus surgery completed Vandana Dalla [place] [facility] [place] 10/03/2022 14:55:15 Imaging Results None recorded. Procedure Notes None recorded. Medical Equipment None Reported. Allergies Allergen ID Allergen Name Allergen Category Reaction Reaction Severity Criticality Documentation Date Start Date Code Code System Note Provider Name and Address Organization Details Recorded Time 38224 aspirin medicatio n chest pain wheezing moderate severe Not available 10/02/2022 1191 RxNorm Vandana catherine, [place] [facility] & [place] 2 09:22:42 70918 Bactrim medicatio n arthralgi a (joint pain) muscle cramps severe severe Not available 10/02/2022 78571 9 RxNorm Vandana catherine, [place] - [facility] & [place] 2 09:22:49 73846 insect venom environme nt confusion cough dizziness fever flushing headache wheezing moderate moderate moderate mild moderate moderate moderate Not available 10/02/2022 17539 UNK Vandana catherine, [place] [facility] & [place] 2 09:23:13 52024 Pneumococ georges vaccine Not available anaphylax is chest pain facial swelling nausea rash wheezing moderate moderate moderate moderate moderate moderate Not available 10/02/2022 06324 7 RxNorm Vandana catherine, [place] [facility] & [place] 2 09:23:25 04704 rosuvasta tin medicatio n eye swelling facial swelling respirato ry distress moderate moderate moderate Not available 10/02/2022 34660 2 RxNorm Vandana catherine, [place] [facility] & [place] 2 09:23:35 Medications Name Sig [...] % 80 /min 98.6 [degF] 49.6 kg/m2 749646. 86 g 116 mm[Hg] 100 mm[Hg] Bianca Smith [place] - [facility] - [facility] 13:59:18 Social History Question Answer Notes LastModified by Organizat [employer] Details LastModified Time Tobacco Smoking Status Never Smoker Vandana Beckergodfrey catherine, [place] - [facility] & [place] 10/03/2022 14:32:09 Do You Have An Advance Directive? No Information not available 10/03/2022 Are You Blind Or Do You Have Difficulty Seeing? No Information not available 10/03/2022 What Was The Date Of Your Most Recent Tobacco Screening? 09/17/2022 Information not available 10/03/2022 Do You Have Any Pets? Yes [email or web address] Information not available 09/25/2023 Are You Passively Exposed To Smoke? No Information not available 10/03/2022 Are You Currently In School? No [employer]STERS [email or web address] Information not available 09/25/2023 Sex: Female Functional Status Question Answer Note LastModified by Organizat [employer] Details LastModified Time Do you use any illicit or recreational drugs? No Information not available 10/03/2022 What is your level of alcohol consumption? 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 Occasional Information not available 10/03/2022 Mental Status Question Answer Note LastModified by Organization D etails LastModified Time Do you feel stressed (tense, restless, nervous, or anxious, or unable to sleep at night)? [id number] Information not available 10/03/2022 Family History Relationship [...] SNOMED-CT Code Diagnosis ICD10 Code Diagnosis Note [id number] Marilou Herbert in, PIPE BUFFER [facility] Infectiou s Disease -[address] [place] [address] 02/23/2025 13:48:33 02/23/2025 14:17:11 Recurrent urinary tract infection 449547089 N39.0 Will check lab work. Will send [...] Member ID Guarantor Name 02/23/2025 1 [facility] (MEDICAID HMO) Lissy Valdez [id number] Lissy Valdez Notes Date Note Type Note [...] with urology in April 2025. Marilou David, PIPE BUFFER [address], [place], [address], [facility] - [place] & [place] 02/24/2025 10:59:38 OBGyn Episode No OBEpisode recorded.
--- OUTSIDE RECORDS SUMMARY | 2025-04-23 13:05 | XMS_ITS | Data Portability ---
Author Organization [place] Alejandro ADMIN Address [address] [place] [id number] Care Team Providers Care Crime Scene Analyst Name Role Phone ZAHRAA BENAVIDES Primary Care Provider Assessment Encounter Date Assessment Date Assessment LastModified by Organization Details LastModified Time 08/07/2023 08/07/[address] scan images onto our system. Will review to determine the degree of stone burden bilaterally in the kidneys. Will also plan cystoscopy and pelvic exam in the office in the near future. [email or web address] Not available 08/07/2023 15:34:46 09/25/2023 09/25/2023 I [...] in 6 months with KUB and UA. [email or web address] Not available 09/25/2023 15:29:09 Plan of Treatment Reminders Order Date Submit Date Provider Last Modified By Organization Details Last Modified Time Details Appointments None recorded. Lab urinalysis, dipstick 2024 025 [email or web address] [facility] Disease -105, [address], [place], [address], 5 14:18:52 CBC w/ diff 2024 025 [facility] (Registration ), [address], [place], [address], 5 16:11:55 CMP, serum or plasma 2024 025 [facility] (Registration ), [address], [place], [address], 5 15:39:03 ESR (erythrocyt e sedimentati on rate), blood [address] (Registration ), [address] [facility], [place], [address], 5 08:54:47 C-reactive protein, quantitativ e, serum or plasma [address] (Registration ), [address], [place], [address], 5 08:54:48 culture, urine 2024 025 [facility], [address] [facility] [address], [place], [address], 5 19:09:52 urinalysis, dipstick 2022 023 [email or web address] [facility], [address] [facility], [address], [place], [address], 3 16:08:29 Referral None recorded. Procedures None [...] usal 7.7 - 58.5 Perfo rmed at: [facility] [address] [place] [address] 1263 Lab Direc tor: Los carson PhD, Phone : [phone] Not Available [facility] ([facility]) [address] [place], [address], 04/03/2023 10:13:10 04/02/20 23 04/03/2023 FSH FSH, serum 5.4 mIU/m L Adult Femal e: Folli cular phase 3.5 - 12.5 Ovula tion phase 4.7 - 21.5 Lutea l phase 1.7 - 7.7 Postm enopa usal 25.8 - 134.8 Perfo rmed at: [facility] [address] [place] [address] 1260 Lab [facility] tor: Los carson PhD, Phone : [phone] Not Available [facility] ([facility]) [address] [facility], [place], [address], 04/03/2023 10:14:16 08/07/20 23 08/07/2023 urina lysis , dipst ick Leukocytes (reference range) trace Not Available [facility] [address] [facility] [address] [place] [address], [address], 08/07/2023 15:15:15 08/07/20 23 08/07/2023 urina lysis , dipst ick Nitrite (reference range:) negati ve Not Available [facility] [address] [facility] [address] [place] [address], [address], 08/07/2023 15:15:15 08/07/20 23 08/07/2023 urina lysis , dipst ick Urobilinogen (reference range) 0.2 Not Available [facility] [address] [place] [address] [address], [place], [address], 08/07/2023 15:15:15 08/07/20 23 08/07/2023 urina lysis , dipst ick Protein (reference range) negati ve Not Available [facility] [address], [place], [address], 08/07/2023 15:15:15 08/07/2008/07/2023 urina lysis , dipst ick pH (reference range 5-8.5) 6.0 Not Available [facility] [address], [place], [address], 08/07/2023 15:15:15 08/07/2008/07/2023 urina lysis , dipst ick Blood (reference range:) small Not Available [address], [place], [address], 08/07/2023 15:15:15 08/07/20 23 08/07/2023 urina lysis , dipst ick Specific [place] (reference range) 1.015 Not Available [address], [place], [address], 08/07/2023 15:15:15 08/07/20 23 08/07/2023 urina lysis , dipst ick Ketone (reference range) negati ve Not Available [address], [place], [address], 08/07/2023 15:15:15 08/07/20 23 08/07/2023 urina lysis , dipst ick Bilirubin (reference range) negati ve Not Available [address], [place], [address], 08/07/2023 15:15:15 08/07/20 23 08/07/2023 urina lysis , dipst ick Glucose (reference range) 250 Not Available [facility] [address] [facility] [address], [place], [address], 08/07/2023 15:15:15 08/07/20 23 08/07/2023 urina lysis , dipst ick Color (reference range: yellow-brown ) Yellow Not Available [facility] [address] [facility] [address], [place], [address], 08/07/2023 15:15:15 02/24/20 25 02/23/2025 CBC AUTO W DIFF WBC 11.3 K/uL 4.0-10 .5 high Not Available [facility] ([facility]) [address], [place], [address], 02/23/2025 15:02:28 02/24/20 25 02/23/2025 CBC AUTO W DIFF RBC 5.7 M/mm3 4.2-6. 4 Not Available [facility] ([facility]) [address] , [place], [address], 02/23/2025 15:02:28 02/24/20 25 02/23/2025 CBC AUTO W DIFF HGB 15.8 gm/dL 12.5-1 6.0 Not Available [facility] ([facility]) [address] , [place], [address], 02/23/2025 15:02:28 02/24/20 25 02/23/2025 CBC AUTO W DIFF HCT 48.8 % 37.0-4 7.0 high Not Available [facility] ([facility]) [address], [place], [address], 02/23/2025 15:02:28 02/24/20 25 02/23/2025 CBC AUTO W DIFF MCV 86.4 fL 78-100 Not Available [facility] ([facility]) [address], [place], [address], 02/23/2025 15:02:28 02/24/20 25 02/23/2025 CBC AUTO W DIFF MCH 28.0 pg 27-31 Not Available [facility] ([facility]) [address], [place], [address], 02/23/2025 15:02:28 02/24/20 25 02/23/2025 CBC AUTO W DIFF MCHC 32.4 g/dL 32-36 Not Available [facility] ([facility]) [address], [place], [address], 02/23/2025 15:02:28 02/24/20 25 02/23/2025 CBC AUTO W DIFF RDW 13.7 % 11.5-1 4.0 Not Available [facility] ([facility]) [address], [place], [address], 02/23/2025 15:02:28 02/24/20 25 02/23/2025 CBC AUTO W DIFF platelet count 380 K/uL 150-45 0 Not Available [facility] ([facility]) [address] , [place], [address], 02/23/2025 15:02:28 02/24/20 25 02/23/2025 CBC AUTO W DIFF MPV 10.3 fL 6-9.5 high Not Available [facility] ([facility]) [address], [place], [address], 02/23/2025 15:02:28 02/24/20 25 02/23/2025 CBC AUTO W DIFF neutrophil% 66.5 % 43-65 high Not Available [facility] ([facility]) [address], [place], [address], 02/23/2025 15:02:28 02/24/20 25 02/23/2025 CBC AUTO W DIFF lymphocyte% 24.3 % 20.5-4 5.5 Not Available [facility] ([facility]) [address], [place], [address], 02/23/2025 15:02:28 02/24/20 25 02/23/2025 CBC AUTO W DIFF monocyte% 6.0 % 5.5-11 .7 Not Available [facility] ([facility]) [address] [facility], [place], [address], 02/23/2025 15:02:28 02/24/20 25 02/23/2025 CBC AUTO W DIFF eosinophil% 2.3 % 0.9-2. 9 Not Available [facility] ([facility]) [address] [place], [address], 02/23/2025 15:02:28 02/24/20 25 02/23/2025 CBC AUTO W DIFF basophil% 0.6 % 0.2-1. 0 Not Available [facility] ([facility]) [address] [place], [address], 02/23/2025 15:02:28 02/24/20 25 02/23/2025 CBC AUTO W DIFF immature granulocytes % 0.3 % 0.0-0. 8 Not Available [facility] ([facility]) [address] [place], [address], 02/23/2025 15:02:28 02/24/20 25 02/23/2025 CBC AUTO W DIFF nucleated red blood cells % 0.0 % Not Available [facility] ([facility]) [address] [place], [address], 02/23/2025 15:02:28 02/24/20 25 02/23/2025 CBC AUTO W DIFF neutrophil# 7.5 K/uL 2.2-4. 8 high Not Available [facility] ([facility]) [address], [place], [address], 02/23/2025 15:02:28 02/24/20 25 02/23/2025 CBC AUTO W DIFF lymphocyte# 2.7 cell/ mcL 1.3-2. 9 Not Available [facility] ([facility]) [address], [place], [address], 02/23/2025 15:02:28 02/24/20 25 02/23/2025 CBC AUTO W DIFF monocyte# 0.7 cell/ mcL 0.3-0. 8 Not Available [facility] ([facility]) [address], [place], [address], 02/23/2025 15:02:28 02/24/20 25 02/23/2025 CBC AUTO W DIFF eosinophil# 0.3 cell/ mcL 0-0.2 high Not Available [facility] ([facility]) [address], [place], [address], 02/23/2025 15:02:28 02/24/20 25 02/23/2025 CBC AUTO W DIFF basophil# 0.1 cell/ mcL 0.0-1. 0 Not Available [facility] ([facility]) [address], [place], [address], 02/23/2025 15:02:28 02/24/20 25 02/23/2025 CBC AUTO W DIFF immature gramulocytes # 0.03 K/uL Not Available [facility] ([facility]) [address], [place], [address], 02/23/2025 15:02:28 02/24/20 25 02/23/2025 CBC AUTO W DIFF nucleated red blood cells # 0.00 K/uL Not Available [facility] ([facility]) [address], [place], [address], 02/23/2025 15:02:28 02/24/20 25 02/23/2025 CBC AUTO W DIFF manual differential NO Not Available [facility] ([facility]) [address] , [place], [address], 02/23/2025 15:02:28 02/24/20 25 02/23/2025 COMP METAB OLIC PANEL sodium 138 mmol/ L 136-14 5 Not Available [facility] ([facility]) [address] , [place], [address], 02/23/2025 15:39:03 02/24/20 25 02/23/2025 COMP METAB OLIC PANEL potassium 3.7 mmol/ L 3.6-5. 0 Not Available [facility] ([facility]) [address] , [place], [address], 02/23/2025 15:39:03 02/24/20 25 02/23/2025 COMP METAB OLIC PANEL chloride 98 mmol/ L 98-107 Not Available [facility] ([facility]) [address] , [place], [address], 02/23/2025 15:39:03 02/24/20 25 02/23/2025 COMP METAB OLIC PANEL carbon dioxide 26.8 mmol/ L 21.0-3 2.0 Not Available [facility] ([facility]) [address] , [place], [address], 02/23/2025 15:39:03 02/24/20 25 02/23/2025 COMP METAB OLIC PANEL anion gap 16.9 Not Available [facility] ([facility]) [address] , [place], [address], 02/23/2025 15:39:03 02/24/20 25 02/23/2025 COMP METAB OLIC PANEL glucose 200 mg/dL 70-120 high Not Available [facility] ([facility]) [address], [place], [address], 02/23/2025 15:39:03 02/24/20 25 02/23/2025 COMP METAB OLIC PANEL BUN 12 mg/dL 7-18 Not Available [facility] ([facility]) [address], [place], [address], 02/23/2025 15:39:03 02/24/20 25 02/23/2025 COMP METAB OLIC PANEL creatinine 1.1 mg/dL 0.6-1. 3 Not Available [facility] ([facility]) [address], [place], [address], 02/23/2025 15:39:03 02/24/20 25 02/23/2025 COMP METAB [...] brown ing kiney funct ion. Not Available [facility] ([facility]) [address], [place], [address], 02/23/2025 15:39:03 02/24/20 25 02/23/2025 COMP METAB OLIC PANEL osmolality (calculated) 293 mOsm/ kg 275-30 1 OSMOL ALITY IS A CALCU LATIO N UTILI ZING THE SERUM /PLAS MA SODIU M, GLUCO SE AND UREA NITRO GEN (BUN) LEVEL S. FOR THE MOST ACCUR ATE RESUL T A MEASU RED SERUM OSMOL ALITY IS SUGGE STED. Not Available [facility] ([facility]) [address], [place], [address], 02/23/2025 15:39:03 02/24/20 25 02/23/2025 COMP METAB OLIC PANEL total protein 8.1 g/dL 6.4-8. 2 Not Available [facility] ([facility]) [address] , [place], [address], 02/23/2025 15:39:03 02/24/20 25 02/23/2025 COMP METAB OLIC PANEL albumin 3.6 g/dL 3.4-5. 0 Not Available [facility] ([facility]) [address] , [place], [address], 02/23/2025 15:39:03 02/24/20 25 02/23/2025 COMP METAB OLIC PANEL globulin 4.5 Not Available [facility] ([facility]) [address], [place], [address], 02/23/2025 15:39:03 02/24/20 25 02/23/2025 COMP METAB OLIC PANEL alb/glob ratio 0.8 0.7-2 Not Available [facility] ([facility]) [address], [place], [address], 02/23/2025 15:39:03 02/24/20 25 02/23/2025 COMP METAB OLIC PANEL calcium 10.2 mg/dL 8.5-10 .5 Not Available [facility] ([facility]) [address], [place], [address], 02/23/2025 15:39:03 02/24/20 25 02/23/2025 COMP METAB OLIC PANEL bilirubin total 0.60 mg/dL 0.10-1 .00 Not Available [facility] ([facility]) [address] [place], [address], 02/23/2025 15:39:03 02/24/20 25 02/23/2025 COMP METAB OLIC PANEL AST (SGOT) 46 U/L 0-37 high Not Available [facility] ([facility]) [address] [place], [address], 02/23/2025 15:39:03 02/24/20 25 02/23/2025 COMP METAB OLIC PANEL ALT (SGPT) 78 U/L 0-65 high Not Available [facility] ([facility]) [address], [place], [address], 02/23/2025 15:39:03 02/24/20 25 02/23/2025 COMP METAB OLIC PANEL alk phosphatase 111 U/L 46-116 Not Available [facility] ([facility]) [address], [place], [address], 02/23/2025 15:39:03 02/24/20 25 02/23/2025 C-KARLI CTIVE PROTE IN (CRP) C-reactive protein, quant 2.0 mg/dL 0.05-0 .300 high Not Available [facility] ([facility]) [address] [facility], [place], [address], 02/23/2025 15:40:11 02/24/20 25 02/23/2025 SED RATE sed rate auto 9 0-20 Not Available [facility] ([facility]) [address], [place], [address], 02/23/2025 15:43:35 02/24/20 25 02/27/2025 URINE CULTU RE,CO MPREH ENSIV E urine culture,comp rehensive FINAL REPORT abnormal Not Available [facility] ([facility]) [address], [place], [address], 02/27/2025 19:09:52 02/24/20 25 02/27/2025 URINE CULTU [...] mL Not Available [facility] ([facility]) [address] [facility], [place], [address], 02/27/2025 19:09:52 02/24/20 25 02/27/2025 URINE CULTU [...] Not Available [facility] ([facility]) [address] [facility], [place], [address], 02/27/2025 19:09:52 02/24/20 25 02/27/2025 URINE CULTU [...] S Not Available [facility] ([facility]) [address] [facility], [place], [address], 02/27/2025 19:09:52 02/24/20 25 02/23/2025 urina lysis , dipst ick Leukocytes (reference range) trace Not Available [place] [address], [place], [address], 02/23/2025 14:16:48 02/24/20 25 02/23/2025 urina lysis , dipst ick Nitrite (reference range:) negati ve Not Available [place] [address], [place], [address], 02/23/2025 14:16:48 02/24/20 25 02/23/2025 urina lysis , dipst ick Urobilinogen (reference range) 0.2 Not Available [place] [address] [address] [facility] [address], [place], [address], 02/23/2025 14:16:48 02/24/20 25 02/23/2025 urina lysis , dipst ick Protein (reference range) negati ve Not Available [place] [address] [address] [facility] [address], [place], [address], 02/23/2025 14:16:48 02/24/20 25 02/23/2025 urina lysis , dipst ick pH (reference range 5-8.5) 6.0 Not Available [place] [address], [place], [address], 02/23/2025 14:16:48 02/24/20 25 02/23/2025 urina lysis , dipst ick Blood (reference range:) small Not Available [place] [address] [address] [facility] [address], [place], [address], 02/23/2025 14:16:48 02/24/20 25 02/23/2025 urina lysis , dipst ick Specific [place] (reference range) 1.015 Not Available [place] [address] [address] [facility] [address], [place], [address], 02/23/2025 14:16:48 02/24/20 25 02/23/2025 urina lysis , dipst ick Ketone (reference range) negati ve Not Available [place] [address] [address] [facility] [address], [place], [address], 02/23/2025 14:16:48 02/24/20 25 02/23/2025 urina lysis , dipst ick Bilirubin (reference range) negati ve Not Available [place] [address] [address] [facility] [address], [place], [address], 02/23/2025 14:16:48 02/24/20 25 02/23/2025 urina lysis , dipst ick Glucose (reference range) 500 Not Available [place] [address] [address] [facility] [address], [place], [address], 02/23/2025 14:16:48 02/24/20 25 02/23/2025 urina lysis , dipst ick Color (reference range: yellow-brown ) Dark Yellow Not Available [place] [address] [address] [facility] [address], [place], [address], 02/23/2025 14:16:48 Result Notes None recorded. Problems Name Problem SNOMED Code Status Onset Date Resolution Date Notes Provider Name and Address Organization Details Recorded Time Syncope 339387181 Active 2021 Malina Hernandez DO [address], [place], [address] , [place] [facility] [place] 15:33:04 Hypersomnia 58414721 Active 2021 Malina Hernandez DO [address] [facility], [address] , [place] [facility] & [place] 15:34:08 Problem Notes None recorded. Procedures Surgical History Date Name Laterality Status Provider Name and Address Organization Details Recorded Time 09/25/20 23 Cystoscopy-Female completed Silvio Valdez MD [address], [place], [address], [place] [facility] & [place] 09/25/2023 15:26:11 04/04/20 22 Date of Last Pap Smear completed Vandana Eugenioa [place] [facility] & [place] 10/03/2022 14:31:43 10/28/19 [address] [employer] Mechanic Surgery completed Vandana Dalla [place] [facility] [place] 10/03/2022 14:45:45 10/28/19 17 Cholecystectomy completed Vandana Eugenioa [place] [facility] & [place] 10/03/2022 14:32:27 10/28/19 14 Other completed Vandana Dalla [place] [facility] 10/03/2022 14:44:51 cardiac catheterization completed Vandana Dalla [place] [facility] 10/03/2022 14:46:31 strabismus surgery completed Vandana Dalla [place] [facility] 10/03/2022 14:55:15 Imaging Results None recorded. Procedure Notes None recorded. Medical Equipment None Reported. Allergies Allergen ID Allergen Name Allergen Category Reaction Reaction Severity Criticality Documentation Date Start Date Code Code System Note Provider Name and Address Organization Details Recorded Time 63779 aspirin medicatio n chest pain wheezing moderate severe Not available 10/02/2022 1191 RxNorm Vandana Eugenioa null, [place] [facility] & [place] 09:22:42 37201 Bactrim medicatio n arthralgi a (joint pain) muscle cramps severe severe Not available 10/02/2022 80160 9 RxNorm Vandana Dalla null, [place] [facility] & [place] 2 09:22:49 20956 insect venom environme nt confusion cough dizziness fever flushing headache wheezing moderate moderate moderate mild moderate moderate moderate Not available 10/02/2022 20166 UNK Vandana catherine, [place]ATHIE[place] - [facility] & [place] 2 09:23:13 24269 Pneumococ georges vaccine Not available anaphylax is chest pain facial swelling nausea rash wheezing moderate moderate moderate moderate moderate moderate Not available 10/02/2022 35577 7 RxNorm Vandana catherine, MATHIE[place] - [facility] & [place] 2 09:23:25 75001 rosuvasta tin medicatio n eye swelling facial swelling respirato ry distress moderate moderate moderate Not available 10/02/2022 80056 2 RxNorm Vandana catherine, [place]ATHIE[place] - [facility] & [place] 2 09:23:35 Medications Name [...] % 80 /min 98.6 [degF] 49.6 kg/m2 209057. 86 g 116 mm[Hg] 100 mm[Hg] Bianca Smith [place] - [facility] 5 13:59:18 Date Recorded Body height Heart rate Oxygen saturation Oxygen saturation in Arterial blood by Pulse oximetry Heart rate Body temperature Body mass index (BMI) Body weight Systolic blood pressure Diastolic blood pressure Provider Name and Address Organization Details Last Updated DateTime 5 160.02 cm 60 /min 97 % 97 % 60 /min 97.7 [degF] 49.6 kg/m2 739174. 86 g 119 mm[Hg] 79 mm[Hg] Bianca Smith [place] [facility] & [place] 5 13:31:54 Date Recorded Body height Body temperature Oxygen saturation Oxygen saturation in Arterial blood by Pulse oximetry Inhaled oxygen flow rate Heart rate Body mass index (BMI) Body weight Systolic blood pressure Diastolic blood pressure Provider Name and Address Organization Details Last Updated DateTime 3 157.48 cm 97.1 [degF] 98 % 98 % 2 L/min 89 /min 48.3 kg/m2 990584. 39 g 128 mm[Hg] 98 mm[Hg] Phillip Morrison [facility] & [place] 3 13:04:48 Date Recorded Body height Body mass index (BMI) Body weight Systolic blood pressure Diastolic blood pressure Provider Name and Address Organization Details Last Updated DateTime 08/07/2023 157.48 cm 49.4 kg/m2 855211.9 4 g 125 mm[Hg] 75 mm[Hg] Britney Yee [facility] & [place] 3 15:05:24 Date Recorded Body height Body mass index (BMI) Body weight Systolic blood pressure Diastolic blood pressure Provider Name and Address Organization Details Last Updated DateTime 09/25/2023 157.48 cm 51.2 kg/m2 363260.8 6 g 126 mm[Hg] 76 mm[Hg] Ioana Ayala [facility] & [place] 3 15:07:04 Social History Question Answer Notes LastModified by Xspandizat ion Details LastModified Time Tobacco Smoking Status Never Smoker Vandana catherine, [facility] & [place] 10/03/2022 14:32:09 Do You Have An Advance Directive? No Information not available 10/03/2022 Are You Blind Or Do You Have Difficulty Seeing? No Information not available 10/03/2022 What Was The Date Of Your Most Recent Tobacco Screening? 09/17/2022 Information not available 10/03/2022 Do You Have Any Pets? 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 Occasional Information not available 10/03/2022 Mental Status Question Answer Note LastModified by Organization D etails LastModified Time Do you feel stressed (tense, restless, nervous, or anxious, or unable to sleep at night)? [id number] Information not available 10/03/2022 Family History Relationship [...] SNOMED-CT Code Diagnosis ICD10 Code Diagnosis Note [id number] Malina Hernandez, [facility] [address] [facility] [place] [address] 10/03/2022 14:07:23 10/03/2022 15:38:25 Syncope [id number] R55 She has been experienci ng these stereotypi georges passing out episodes for five years. No definite witnessed convulsion s but some associated brief confusion afterwards .will order EEG to rule out neurologic causes of syncope Hypersomnia [id number] G47 .10 She describes some significan t episodes of pathologic al sleepiness . She will fall asleep without warning in the middle of talking. This is very infrequent but can be suggestive of narcolepsy . Will order PSG with MSLT to evaluate this in more detail. [id number] Micheline Lackey MD [facility] General Surgery [address] [place] [address],[address] [place] [address] 04/02/2023 12:53:55 04/02/2023 13:53:12 Pelvic mass 36103503 R19.00 Possible lymphocele versus ovarian remnant from [...] patient with lab levels and consider further MANAGER ORACLE follow up. [id number] Silvio Valdez MD [facility] Urology [address] [place] [address],[address] [place] [address] 08/07/2023 14:35:57 08/07/2023 15:40:17 Recurrent urinary tract infection 361242552 N39.0 Kidney stone 53645472 N2 0.0 Chronic th oracic back pain 9285008485 82206 M54.6 Microscopic hematuria 19 0115168 R31.29 [id number] Silvio Valdez MD [facility] Urology [address] [place] [address],[address] [place] [address] 09/25/2023 14:26:57 09/25/2023 15:25:02 Recurrent urinary tract infection 155748764 N39.0 Kidney stone 18846190 N2 0.0 Microscopic hematuria 19 3362800 R31.29 [id number] [facility] [address] [facility] [address] [place] [address] 02/23/2025 13:48:33 02/23/2025 14:17:11 Recurrent urinary tract infection 648740387 N39.0 Will check lab work. Will send urine off for a culture. Will see patient back in 1 week. 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 Patient will follow up in 2 weeks. Call the office if anything persists or worsens. 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 see above Health Concerns Section Related Observation LastModified by Organization Detai ls LastModified Time None Recorded Concern Status LastModified by Organization Details LastModified Time None Recorded Advance Directives Directive N: Payers Insurance Date Sequence Insurance Name Policy Number Policy Valdivia Covered Member ID Valdivia Member ID Guarantor Name 09/18/2023 1 [facility] (POS II) [facility] [id number] [facility] 02/27/2025 1 [facility] (MEDICAID HMO) [facility] [id number] [facility] Notes Date Note Type Note Provider [...] time. Patient states she is seen her dynamicist for this, was told it is possibly a lymphocele. Micheline Lackey MD [address] [facility], [place], [address], [place] - [facility] - [place] & [place] 04/18/2023 12:50:43 08/07/2023 text/html Location: Histor y [...] is status post hysterectomy. Silvio Valdez MD [address] [facility], [place], [address], [facility] - [facility] - [place] & [place] 08/07/2023 15:35:17 09/25/2023 text/html Patient returns to [...] hysterectomy. Silvio Valdez MD [address], [place], [address], [facility] & [place] 09/25/2023 15:30:10 02/23/2025 text/html patient presents to [...] 2025. Marilou David APRN [address], [place], [address], [facility] - [facility] & [place] 02/24/2025 10:59:38 03/02/2025 text/html patient presents to clinic for follow up. Urine culture results received. Patient denies any fever. She is scheduled to have surgery to remove her stone on . Marilou David APRN [address], [place], [address], [facility] & [place] 03/02/2025 13:35:40 OBGyn Episode No OBEpisode recorded.
[2025-04-23 13:55] LABS: Intact Parathyroid Hormone 48.5 pg/mL (7.5-53.5)
[2025-04-23 14:00] LABS: 25-OH Vitamin D, Total 37.3 ng/mL (30-100)
[2025-04-24 16:28] LABS: Calcium, Ionized 5.2 mg/dL (4.5-5.6)
== END 2025-04-23 23:59 | disposition home or self-care (01) ==
LOC: LAB 13:02
PROVIDERS: PCP Internal Medicine; Visit Provider Surgery
DX: E21.0 Primary hyperparathyroidism (principal)
CPT/HCPCS: 36415; 82306; 82330; 83970

== ENCOUNTER 2025-04-27 13:27 | Outpatient (CLI) | payer OTHER, SELFPAY ==
--- OUTSIDE RECORDS SUMMARY | 2025-04-27 13:29 | XMS_ITS | Encounter Summary ---
Author Organization [facility] Address [address] [place] [address] Care Team Providers Care Cooker Syrup Name Role Phone Juarez Griffin MD Primary Care Provider [phone] Karen Naqvi DO Unavailable [phone] Encounter Details Date Type Department Care Team ([facility] st Contact Info) Description 02/12/2024 Orders Only External Location [address] [place] [address] Gennaro Cuevas MD [facility] [address] [place] [address] Social History Tobacco Use Types Packs/Day Years [...] Comment:+ 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 Source: [facility]. This patient will require contact precautions indefinitely. 04/01/2024 documented as of this encounter Care Teams Cooker Syrup Relationship Specialty Start Date End Date Juarez Griffin MD [address] [place] [address] PCP - General 03/10/21 Karen Naqvi DO [facility] [address] [place] [address] Referring Physician Obstetrics and Gynecology 09/23/24 documented as of this encounter
--- OUTSIDE RECORDS SUMMARY | 2025-04-27 13:29 | XMS_ITS | Encounter Summary ---
Author Organization [facility] Address [address] [place] [address] Care Team Providers Care Satellite Tv Technician Installer Name Role Phone Juarez Griffin MD Primary Care Provider [phone] Karen Naqvi DO Unavailable [phone] Encounter Details Date Type Department Care Team ([facility] st Contact Info) Description 03/12/2025 Orders Only External Location [address] [place] [address] Provider, External Social History Tobacco Use Types [...] drink first t yue in the morning (EYE-APICULTURIST) to steady your nerves or to get [...] Comment:+ 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 Source: [facility] [email or web address]. This patient will require contact precautions indefinitely. 04/01/2024 Assessment Noted Time A fall risk assessment has been complete d for the patient 10/05/2024 1:53 PM EST A Body Mass Index follow-up plan has been documented for the patient 04/12/2024 12:42 PM EDT documented as of this encounter Care Teams Satellite Tv Technician Installer Relationship Specialty Start Date End Date Juarez Griffin MD [address] [facility] [address] [place] [address] PCP - General 03/10/21 Karen Naqvi DO [address] [facility] [address] [place] [address] Referring Physician Obstetrics and Gynecology 09/23/24 documented as of this encounter
--- OUTSIDE RECORDS SUMMARY | 2025-04-27 13:29 | XMS_ITS | Data Portability ---
Author Organization [facility] ABHAY MejiasS [place] CLOSED Address [address] [facility] [address] [place] [address] Assessment No assessment recorded. Plan of Treatment Reminders Order Date Submit Date Provider Last Modified By Organization Details Last Modified Time Details Appointments None recorded. Lab None recorded. Referral aquatic therapy referral 2017 018 2 Not available 8 11:14:18 cognitive behavioral therapy referral 2017 018 [email or web address] 2 [employer] [facility], [address] [facility], [facility] [address], [place], [address], 8 11:14:19 occupationa l therapist referral 2017 018 [email or web address] 2 Not available 8 11:14:17 Procedures None recorded. Surgeries None recorded. Imaging None recorded. Medication Orders None recorded. Patient TargetsNo targets recorded. Patient Instructions Encounter Date Encounter Id Patient Instructions Last Modified By Organization Details Last Modified Time 08/13/2018 [id number] learning about healthy weight Not available 08/13/2018 [...] Name and Address Organization Details Recorded Time [id number] aspirin medicatio n Not available Not available Not available 08/13/2018 [id number] [facility]Norm Melinda Hudson [facility] 8 10:01:54 Medications Name Sig Start [...] Address Organization Details Last Updated DateTime 8 549099. 12 g 48.2 kg/m2 160.02 cm 18 /min 61 /min 132 mm[Hg] 96 mm[Hg] Melinda Hudson [facility] 8 10:06:40 Social History Question Answer Notes LastModified by Organizat ion Details LastModified Time Tobacco Smoking Status Never Smoker Melinda Hudson [facility] 08/13/2018 10:02:03 What Was The Date Of Your Most Recent Tobacco Screening? 08/13/2018 Information n ot available 12/15/2019 Sex: Unknown Functional Status None recorded. Mental Status None recorded. Family History Relationship Description Onset Age of this Age Resolved Age Notes LastModified by Organization Details LastModified Time Father No current problems or disability [email or web address] Not available 08/13 10:02:01 Mother No current problems or disability [email or web address] Not available 08/13 10:02:01 Medical History Condition [...] SNOMED-CT Code Diagnosis ICD10 Code Diagnosis Note [id number] CLIFF BARBER MD RHEUMATOL OGY [address] [place] [address] 08/13/2018 09:13:44 08/13/2018 10:48:47 Pain of multiple joints 22892537 M25.50 she has clinical features of [place] OA. no features of an inflammato ry arthritis noted. no features of rheumatoid noted. 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 would suggest to avoid steroids and start OT as stated below. she can RTC with me as prn. Fibromyalgia 861725437 M 79.7 she has clinical features suggestive [...] OT to help with the ROM and award clerk. 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 Health Concerns Section Related Observation LastModified by Organization Detai ls LastModified Time None Recorded Concern Status LastModified by Organization Details LastModified Time None Recorded Advance Directives Directive None Recorded Payers Insurance Date Sequence Insurance Name Policy Number Policy Valdivia Covered Member ID Valdivia Member ID Guarantor Name 02/03/2024 1 [facility] (MEDICAID HMO) [facility] [id number] [facility] 01/24/2024 1 [place] [place] - FFS/TRADITIO NAL Lissy [place] [id number] Lissy [facility] 02/04/2024 1 [facility] [id number] Lissy [facility] 01/31/2024 1 [facility] (PPO) [id number] Lissy [facility] [id number] Lissy [facility] Notes Date Note Type Note Provider Name [...] normal TSH. CLIFF BARBER MD [facility] [place] [facility], [place], [address], [facility] 08/13/2018 17:00:47 OBGyn Episode No OBEpisode recorded.
--- OUTSIDE RECORDS SUMMARY | 2025-04-27 13:29 | XMS_ITS | Clinical Summary ---
Author Organization [facility] Address [address] [facility] [address] [place] [address] Phone Care Team Providers Care Book Trimmer Name Role Phone Zofia Perkins Unavailable Unavailable Conditions or Problems Problem Name Problem Code Onset Date Status Entry Date Provider Comment Standard Description Annotate Acute Pyelonephritis 64392987 (SNOMED CT) 01/07 Active 01/07 Malina Ames Acute pyelonephritis Obstructive uropathy with infection N13.6 (ICD-10-C M) 01/07 Active 01/07 Malina Ames Pyonephrosis Neutrophilic leukemoid reaction D72.823 (ICD-10-C M) 01/07 Active 01/07 Malina Ames Leukemoid reaction COPD 15664474 (SNOMED CT) 01/07 Active 01/07 Malina Ames Chronic obstructive pulmonary disease Morbid obesity due to excess calories E66.01 (ICD-10-C M) 01/07 Active 01/07 Malina Ames Morbid (severe) obesity due to excess calories DM Type II E11.9 (ICD-10-C M) 01/07 Active 01/07 Malina Ames Type 2 diabetes mellitus without complications Benign hypertensive heart disease with chronic diastolic heart failure (I50.32) 87194781 (SNOMED CT) 01/07 Active 01/07 Malina Ames Benign hypertension Medications Medication Instructions Start Date Stop Date Generic Name [facility] Provider FOSFOMYCIN TROMETHAMINE 3 GM PACK Take 1 packet by mouth as directed take 1 packet every 3-4 days (2 times weekly) fosfomycin tromethamine 25821554071 Calvin Villarreal MD PREDNISONE 20 MG TABS prednisone 42183415270 Milly Jabierbrianne VITAMIN C 500 MG CAPS twice a day ascorbic acid (vitamin c) 74306150220 Milly Mosquera HIPREX 1 GM TABS Take 1 tablet by mouth twice a day 02/18 methenamine hippurate 00986562725 Calvin Villarreal MD INDOMETHACIN 50 MG CAPS Take 1 capsule by mouth three times a day indomethacin 31787626219 Linda De Leon SUCRALFATE 1 GM TABS Take 1 tablet by mouth four times a day sucralfate 14942305006 Linda De Leon BUMETANIDE 2 MG TABS Take 1 tablet by mouth twice a day bumetanide 65530980029 Linda De Leon PRAVASTATIN SODIUM 10 MG TABS Take 1 tablet by mouth every night pravastatin 92095464086 Linda De Leon ENTRESTO 24-26 MG TABS Take 1 tablet by mouth twice a day sacubitril-valsa rtan 00234912632 Linda De Leon VENTOLIN HFA 108 (90 Base) MCG/ACT AERS Inhale 2 puff by mouth every four to six hours as needed albuterol sulfate 85140505823 Linda De Leon ADVAIR DISKUS 250-50 MCG/ACT AEPB Inhale 1 puff twice a day fluticasone propion-salmeter ol 87504894012 Linda De Leon OMEPRAZOLE 20 MG CPDR Take 1 capsule by mouth once a day omeprazole 90648884565 Linda De Leon METFORMIN HCL 500 MG TABS Take 1 tablet by mouth twice a day metformin 97578063288 Linda De Leon FARXIGA 10 MG TABS Take 10 mg by mouth once a day dapagliflozin propanediol 37813310609 Linda De Leon IBUPROFEN (IBUPROFEN) 800 MG TABS Take 1 tablet by mouth every six hours as needed IBUPROFEN Linda De Leon TIZANIDINE HCL 4 MG TABS Take 1 tablet by mouth as needed tizanidine 53138457746 Linda De Leon TRAMADOL HCL 50 MG TABS every twelve hours tramadol 63193703914 Linda De Leon NITROGLYCERIN 0.[address] 1 tablet under tongue as needed nitroglycerin 16935889349 Linda Moises ONDANSETRON HCL 4 MG TABS Take 1 tablet by mouth every eight hours as needed ondansetron hcl 08911453234 Linda Moises SPIRONOLACTONE 50 MG TABS Take 1 tablet by mouth once a day spironolactone 54544643009 Linda De Leon SITagliptin (JANUVIA) 25 MG tablet Take 1 tablet by mouth once a day JANOLIVER De Leon NEBIVOLOL HCL 5 MG TABS Take 1 tablet by mouth once a day nebivolol 63958675756 Jazieltyree De Leon GLYXAMBI 10-5 MG TABS Take 1 tablet by mouth once a day empagliflozin-li nagliptin 72803284204 Linda De Leon VENTOLIN HFA 108 (90 Base) MCG/ACT AERS INHALE TWO PUFFS BY MOUTH EVERY 4 TO 6 HOURS NEEDED 01/19 albuterol sulfate 12346961379 QIE qieuser TRAMADOL HCL 50 MG TABS Every 12 (Twelve) Hours. 01/19 tramadol 68321952022 QIE qieuser TIZANIDINE HCL 4 MG TABS Take 1 tablet by mouth As Needed. 01/19 tizanidine 60649988268 QIE qieuser SUCRALFATE 1 GM TABS Take 1 tablet by mouth 4 (Four) Times a Day. 01/19 sucralfate 25271094902 QIE qieuser SPIRONOLACTONE 50 MG TABS TAKE ONE TABLET BY MOUTH EVERY DAY 01/19 spironolactone 48001837908 QIE qieuser SITagliptin (JANUVIA) 25 MG tablet Take 1 tablet by mouth Daily. 01/19 JANUVIA QIE qieuser PRAVASTATIN SODIUM 10 MG TABS TAKE ONE TABLET BY MOUTH EVERY DAY AT BEDTIME 01/19 pravastatin 38475857240 QIE qieuser ONDANSETRON HCL 4 MG TABS Take 1 tablet by mouth Every 8 (Eight) Hours As Needed. 04/09 ondansetron hcl 55182660370 QIE qieuser OMEPRAZOLE 20 MG CPDR TAKE ONE CAPSULE BY MOUTH EVERY DAY 04/09 omeprazole 12562369927 QIE qieuser O2 (OXYGEN) 2 L by Alternating Nares route Every Night. OXYGEN QIE qieuser NITROGLYCERIN 0.[address] 1 tablet under the tongue As Needed for Chest Pain. 01/19 nitroglycerin 93214424139 QIE qieuser NEBIVOLOL HCL 5 MG TABS TAKE ONE TABLET BY MOUTH EVERY DAY 01/19 nebivolol 48513001481 QIE qieuser METFORMIN HCL 500 MG TABS Take 1 tablet by mouth 2 (Two) Times a Day. 01/19 metformin 47340756298 QIE qieuser IPRATROPIUM-ALBUT MIK 0.5-2.5 (3) MG/3ML SOLN ipratropium-albu terol 24089072788 QIE qieuser INDOMETHACIN 50 MG CAPS Take 1 capsule by mouth 3 (Three) Times a Day With Meals. 01/19 indomethacin 29577183291 QIE qieuser IBUPROFEN (IBUPROFEN) 800 MG TABS Take 1 tablet by mouth Every 6 (Six) Hours As Needed. 01/19 IBUPROFEN QIE qieuser ENTRESTO 24-26 MG TABS TAKE ONE TABLET BY MOUTH TWICE DAILY 01/19 sacubitril-valsa rtan 02555142681 QIE qieuser GLYXAMBI 10-5 MG TABS Take 1 tablet by mouth Daily. 01/19 empagliflozin-li nagliptin 70139755352 QIE qieuser FARXIGA 10 MG TABS Take 10 mg by mouth Daily. 01/19 dapagliflozin propanediol 68650787407 QIE qieuser BUMETANIDE 2 MG TABS TAKE ONE TABLET BY MOUTH TWICE DAILY 01/19 bumetanide 31659160564 QIE qieuser ADVAIR DISKUS 250-50 MCG/ACT AEPB Inhale 1 puff 2 (Two) Times a Day. 01/19 fluticasone propion-salmeter ol 95891615609 QIE qieuser CEFUROXIME AXETIL 500 MG TABS 1 tablet by mouth twice a day cefuroxime axetil 36878949659 Calvin Villarreal MD Medications Administered No information [...] status SMOK STATUS Never smoker Toba accounting consultant smoking status MEDS REVIEW Done Documenta tion [...]
--- OUTSIDE RECORDS SUMMARY | 2025-04-27 13:30 | XMS_ITS | Referral Summary ---
Author Organization [facility] ([place], [place], [place], [place]) Address [address] [place] [address] Care Team Providers Care Clay Stain Mixer Name Role Phone Juarez Griffin MD Primary Care Provider [phone] Allergies Active Allergy Reactions Criticality Noted Date [...] of Transportation (Non-Medical) Not on file 12/27/2023 Utilities Answer Date Recorded In the past 12 months, has t he electric, gas, oil, or water company threatened to shut off services in your home? No 12/27/2023 Food Insecurity Answer Date Recorded Within [...] Do you [facility] a language other than [facility]? No 12/27/2023 Do you want help with school or training? For example, starting or completing job training or getting a high school diploma, GED or equivalent. No 12/27/2023 Physical Activity Answer Date Recorded Number of minutes of exercise per week 0 12/27/2023 Substance Use Answer Date Recorded How [...] on file Medical Devices Implanted Type Area High Lift Driver Device Identifier Shelf Expiration Date Model / Serial / Lot Loop Recorder LOOP RECORDER Left: Chest [facility] [address] [place] [id number] [facility] Advance Directives For more information, please contact: [phone] * Full Code (Latest Code Status on File) Date Activated Date Inactivated Comments 12/27/2023 3:21 AM 12/30/2023 2:53 PM -Attempt Resus citation if person has no pulse and is not breathing. -If no pulse or not breathing attempt CPR/CODE. -Call Rapid Response if patient is in distress. Care Teams Clay Stain Mixer Relationship Specialty Start Date End Date Juarez Griffin MD [address] [place] [address] PCP - General General Internal Medicine 12/30/23
--- OUTSIDE RECORDS SUMMARY | 2025-04-27 13:30 | XMS_ITS | Clinical Summary ---
Author Organization [facility] ([place], [place], [place], [place]) Address [address] [place] [address] Care Team Providers Care Renewable Energy Trader Name Role Phone Juarez Griffin MD Primary Care Provider [phone] Allergies Active Allergy Reactions Criticality Noted Date [...] Do you speak a language other than Surinamese at [facility]? No 12/27/2023 Do you want [...] 2 - PPSV23) 2023 09/06/2021 COVID-19 VACCINE ( - season) 06/28/202408/2022, 08/21/2021 Tobacco Cessation Counseling and Screening (12+) 12/26/2024 12/27/2023 Influenza Vaccine (Season Ended) 2025 Shingles Vaccine (Zoster) Completed 10/30/2023, Medical Devices Implanted Type Area Allied Health Teacher Device Identifier Shelf Expiration Date Model / Serial / Lot Loop Recorder LOOP RECORDER Left: Chest Insurance [facility] [facility] Advance Directives For more information, please contact: [phone] * Full Code (Latest Code Status on File) Date Activated Date Inactivated Comments 12/27/2023 3:21 AM 12/30/2023 2:53 PM -Attempt Resus citation if person has no pulse and is not breathing. -If no pulse or not breathing attempt CPR/CODE. -Call Rapid Response if patient is in distress. Care Teams Renewable Energy Trader Relationship Specialty Start Date End Date Juarez Griffin MD [address] [place] [address] PCP - General General Internal Medicine 12/30/23
--- OUTSIDE RECORDS SUMMARY | 2025-04-27 13:30 | XMS_ITS | Clinical Summary ---
Author Organization [facility] Address [address] [place] [address] Care Team Providers Care Dairy Hand Name Role Phone Juarez Griffin MD Primary Care Provider [phone] Karen Naqvi DO Unavailable [phone] Allergies Active Allergy Reactions Criticality Noted Date [...] Team Description 03/12/2025 Orders Only External Location [address] [place] [address] Provider, External from Last 3 Months Immunizations [...] drink first t yue in the morning (EYE-CAFE AIDE) to steady your nerves or to get [...] PPSV23) 11/01/2021 09/06/2021 [facility]-Breast Cancer Screening 2023 NPT-GJWMQ-70 Vaccine ( - season) 2024 10/07/2022, 08/21/2021 [...] this topic Medical Devices Implanted Type Area Patient Support Representative Device Identifier Shelf Expiration Date Model / Serial / Lot Stent Ureteral Double Pigtail Pos 6fr 24cm - [id number] - [id number] Implanted:Qty: 1 on 04/11/2024 by Harvey Macdonald MD at [facility] Stent Right: [id number] 01/02/2026 [id number] / [id number] / [id number] Loop Recorder-2016 Implanted:04/28 (Quantity not on file) Chest SocialDefender [id number] / / Procedures Procedure Name Priority [...] Reactive Non Reactive 04/10/2024 7:25 PM EDT [facility] Comment:Screening for HIV 1 & 2 antibodies, and P24 antigen is NONREACTIVE. No confirmatory testing is required. Blood Venous blood specimen / Unknown Venipuncture / Unknown 04/10/2024 6:11 PM EDT 04/10/2024 6:27 PM EDT us Susan Mcclure MD LAB BLOOD ORDERABLES Final Re sult Performing Organization Address [facility] Co de Phone Number [facility] [address] [place] [address] * Hepatitis C Antibody - ED (04/10/2024 6:11 PM EDT) Hepatitis C Antibody Negative Negative 04/10/2024 7:24 PM EDT [facility] Blood Venous blood specimen / Unknown Venipuncture / Unknown 04/10/2024 6:11 PM EDT 04/10/2024 6:26 PM EDT us Susan Mcclure MD LAB BLOOD ORDERABLES Final Re sult Performing Organization Address [facility] de Phone Number [facility] [address] [place] [address] * (ABNORMAL) Hemoglobin A1c (04/10/2024 6:11 PM EDT) Pathologist [facility] Hemoglobin A1c 6.3(H) <5.7 % 04/10/2024 [...] Adults <6.0% Children and Adolescents <7.5% Source: [place] [employer]. Standards of medical care in diabetes,2017. Diabetes Care.2017:40 (suppl 1):S1-S135. HbA1c assay performed by an ion-exchange chromatography method that is certified traceable to the [facility]. us Joselito Berrios MD LAB BLOOD ORDERABLES Final Re sult [facility] [address] [place] [address] from Last 3 Months or Most Recently Relevant to Health Maintenance Additional Health Concerns Infection Onset Date Last Indicated ESBL Comment:+ 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 Source: [facility]. This patient will require contact precautions indefinitely. 04/01/2024 Insurance [employer] MEDICAID Advance Directives * Full Code (Latest Code Status on File) Date Activated Date Inactivated Comments 04/11/2024 10:12 AM 04/12/2024 3:22 PM Question Answer Comments Patient has decision-making capacity? Yes Care Teams Dairy Hand Relationship Specialty Start Date End Date Juarez Griffin MD [address] [facility] [address] [place] [address] PCP - General 03/10/21 Karen Naqvi DO [address] [facility] [address] [place] [address] Referring Physician Obstetrics and Gynecology 09/23/24
--- OUTSIDE RECORDS SUMMARY | 2025-04-27 13:30 | XMS_ITS | Data Portability ---
Author Organization [place] Alejandro ADMIN Address [address] [place] [id number] Care Team Providers Care Skate Maker Name Role Phone ZAHRAA BENAVIDES Primary Care Provider Assessment Encounter Date Assessment Date Assessment LastModified by Organization Details LastModified Time 08/07/2023 08/07/[address] scan images onto our system. Will review to determine the degree of stone burden bilaterally in the kidneys. Will also plan cystoscopy and pelvic exam in the office in the near future. [email or web address] Not available 08/07/2023 15:34:46 09/25/2023 09/25/2023 I [...] in 6 months with KUB and UA. [email or web address] Not available 09/25/2023 15:29:09 Plan of Treatment Reminders Order Date Submit Date Provider Last Modified By Organization Details Last Modified Time Details Appointments None recorded. Lab urinalysis, dipstick 2024 025 [email or web address] [facility] -105, [address], [place], [address], 5 14:18:52 CBC w/ diff 2024 025 [facility] (Registration ), [address], [place], [address], 5 16:11:55 CMP, serum or plasma 2024 025 [facility] (Registration ), [address], [place], [address], 5 15:39:03 ESR (erythrocyt e sedimentati on rate), blood [address] (Registration ), [address] [facility], [place], [address], 5 08:54:47 C-reactive protein, quantitativ e, serum or plasma [address] (Registration ), [address], [place], [address], 5 08:54:48 culture, urine 2024 025 [place] [facility], [address], [address], [place], [address], 5 19:09:52 urinalysis, dipstick 2022 023 [email or web address] [facility], [address] [facility], [address], [place], [address], 3 16:08:29 Referral None recorded. Procedures None [...] usal 7.7 - 58.5 Perfo rmed at: [facility] [address] [place] [address] 1264 Lab Direc tor: Los carson PhD, Phone : [phone] Not Available [facility] ([employer]) [address] [place], [address], 04/03/2023 10:13:10 04/02/20 23 04/03/2023 FSH FSH, serum 5.4 mIU/m L Adult Femal e: Folli cular phase 3.5 - 12.5 Ovula tion phase 4.7 - 21.5 Lutea l phase 1.7 - 7.7 Postm enopa usal 25.8 - 134.8 Perfo rmed at: [facility] [address] [place] [address] 1267 Lab [facility] tor: Los carson PhD, Phone : [phone] Not Available [facility] ([employer]) [address] [facility], [place], [address], 04/03/2023 10:14:16 08/07/20 23 08/07/2023 urina lysis , dipst ick Leukocytes (reference range) trace Not Available [facility] [address] [facility] [address] [place] [address], [address], 08/07/2023 15:15:15 08/07/20 23 08/07/2023 urina lysis , dipst ick Nitrite (reference range:) negati ve Not Available [facility] [address] [facility] [address] [place] [address], [address], 08/07/2023 15:15:15 08/07/20 23 08/07/2023 urina lysis , dipst ick Urobilinogen (reference range) 0.2 Not Available [facility] [address] [place] [address] [address], [place], [address], 08/07/2023 15:15:15 08/07/20 23 08/07/2023 urina lysis , dipst ick Protein (reference range) negati ve Not Available [facility] [address], [place], [address], 08/07/2023 15:15:15 08/07/2008/07/2023 urina lysis , dipst ick pH (reference range 5-8.5) 6.0 Not Available [facility] [address], [place], [address], 08/07/2023 15:15:15 08/07/2008/07/2023 urina lysis , dipst ick Blood (reference range:) small Not Available [facility], [place], [address], 08/07/2023 15:15:15 08/07/20 23 08/07/2023 urina lysis , dipst ick Specific Bea[place]ont (reference range) 1.015 Not Available [address], [place], [address], 08/07/2023 15:15:15 08/07/20 23 08/07/2023 urina lysis , dipst ick Ketone (reference range) negati ve Not Available [address], [place], [address], 08/07/2023 15:15:15 08/07/20 23 08/07/2023 urina lysis , dipst ick Bilirubin (reference range) negati ve Not Available [address], [place], [address], 08/07/2023 15:15:15 08/07/20 23 08/07/2023 urina lysis , dipst ick Glucose (reference range) 250 Not Available [facility] [address] [facility] [address], [place], [address], 08/07/2023 15:15:15 08/07/20 23 08/07/2023 urina lysis , dipst ick Color (reference range: yellow-brown ) Yellow Not Available [facility] [address] [facility] [address], [place], [address], 08/07/2023 15:15:15 02/24/20 25 02/23/2025 CBC AUTO W DIFF WBC 11.3 K/uL 4.0-10 .5 high Not Available [facility] ([employer]) [address], [place], [address], 02/23/2025 15:02:28 02/24/20 25 02/23/2025 CBC AUTO W DIFF RBC 5.7 M/mm3 4.2-6. 4 Not Available [facility] ([facility] [employer] [facility] [employer]) [address] , [place], [address], 02/23/2025 15:02:28 02/24/20 25 02/23/2025 CBC AUTO W DIFF HGB 15.8 gm/dL 12.5-1 6.0 Not Available [facility] ([facility] [employer]) [address] , [place], [address], 02/23/2025 15:02:28 02/24/20 25 02/23/2025 CBC AUTO W DIFF HCT 48.8 % 37.0-4 7.0 high Not Available [facility] ([employer]) [address], [place], [address], 02/23/2025 15:02:28 02/24/20 25 02/23/2025 CBC AUTO W DIFF MCV 86.4 fL 78-100 Not Available [facility] ([employer]) [address], [place], [address], 02/23/2025 15:02:28 02/24/20 25 02/23/2025 CBC AUTO W DIFF MCH 28.0 pg 27-31 Not Available [facility] ([employer]) [address], [place], [address], 02/23/2025 15:02:28 02/24/20 25 02/23/2025 CBC AUTO W DIFF MCHC 32.4 g/dL 32-36 Not Available [facility] ([employer]) [address], [place], [address], 02/23/2025 15:02:28 02/24/20 25 02/23/2025 CBC AUTO W DIFF RDW 13.7 % 11.5-1 4.0 Not Available [facility] ([employer]) [address], [place], [address], 02/23/2025 15:02:28 02/24/20 25 02/23/2025 CBC AUTO W DIFF platelet count 380 K/uL 150-45 0 Not Available [facility] ([employer]) [address] , [place], [address], 02/23/2025 15:02:28 02/24/20 25 02/23/2025 CBC AUTO W DIFF MPV 10.3 fL 6-9.5 high Not Available [facility] ([employer]) [address], [place], [address], 02/23/2025 15:02:28 02/24/20 25 02/23/2025 CBC AUTO W DIFF neutrophil% 66.5 % 43-65 high Not Available [facility] ([employer]) [address], [place], [address], 02/23/2025 15:02:28 02/24/20 25 02/23/2025 CBC AUTO W DIFF lymphocyte% 24.3 % 20.5-4 5.5 Not Available [facility] ([employer]) [address], [place], [address], 02/23/2025 15:02:28 02/24/20 25 02/23/2025 CBC AUTO W DIFF monocyte% 6.0 % 5.5-11 .7 Not Available [facility] ([employer]) [address] [facility], [place], [address], 02/23/2025 15:02:28 02/24/20 25 02/23/2025 CBC AUTO W DIFF eosinophil% 2.3 % 0.9-2. 9 Not Available [facility] ([facility] [employer] [facility] [employer]) [address] [place], [address], 02/23/2025 15:02:28 02/24/20 25 02/23/2025 CBC AUTO W DIFF basophil% 0.6 % 0.2-1. 0 Not Available [facility] ([employer]) [address] [place], [address], 02/23/2025 15:02:28 02/24/20 25 02/23/2025 CBC AUTO W DIFF immature granulocytes % 0.3 % 0.0-0. 8 Not Available [facility] ([facility] [employer]) [address] [place], [address], 02/23/2025 15:02:28 02/24/20 25 02/23/2025 CBC AUTO W DIFF nucleated red blood cells % 0.0 % Not Available [facility] ([facility] [employer]) [address] [place], [address], 02/23/2025 15:02:28 02/24/20 25 02/23/2025 CBC AUTO W DIFF neutrophil# 7.5 K/uL 2.2-4. 8 high Not Available [facility] ([employer]) [address], [place], [address], 02/23/2025 15:02:28 02/24/20 25 02/23/2025 CBC AUTO W DIFF lymphocyte# 2.7 cell/ mcL 1.3-2. 9 Not Available [facility] ([facility] [employer]) [address], [place], [address], 02/23/2025 15:02:28 02/24/20 25 02/23/2025 CBC AUTO W DIFF monocyte# 0.7 cell/ mcL 0.3-0. 8 Not Available [facility] ([employer]) [address], [place], [address], 02/23/2025 15:02:28 02/24/20 25 02/23/2025 CBC AUTO W DIFF eosinophil# 0.3 cell/ mcL 0-0.2 high Not Available [facility] ([employer]) [address], [place], [address], 02/23/2025 15:02:28 02/24/20 25 02/23/2025 CBC AUTO W DIFF basophil# 0.1 cell/ mcL 0.0-1. 0 Not Available [facility] ([employer]) [address], [place], [address], 02/23/2025 15:02:28 02/24/20 25 02/23/2025 CBC AUTO W DIFF immature gramulocytes # 0.03 K/uL Not Available [facility] ([employer]) [address], [place], [address], 02/23/2025 15:02:28 02/24/20 25 02/23/2025 CBC AUTO W DIFF nucleated red blood cells # 0.00 K/uL Not Available [facility] ([facility] [employer]) [address], [place], [address], 02/23/2025 15:02:28 02/24/20 25 02/23/2025 CBC AUTO W DIFF manual differential NO Not Available [facility] ([employer]) [address] , [place], [address], 02/23/2025 15:02:28 02/24/20 25 02/23/2025 COMP METAB OLIC PANEL sodium 138 mmol/ L 136-14 5 Not Available [facility] ([employer]) [address] , [place], [address], 02/23/2025 15:39:03 02/24/20 25 02/23/2025 COMP METAB OLIC PANEL potassium 3.7 mmol/ L 3.6-5. 0 Not Available [facility] ([employer]) [address] , [place], [address], 02/23/2025 15:39:03 02/24/20 25 02/23/2025 COMP METAB OLIC PANEL chloride 98 mmol/ L 98-107 Not Available [facility] ([employer]) [address] , [place], [address], 02/23/2025 15:39:03 02/24/20 25 02/23/2025 COMP METAB OLIC PANEL carbon dioxide 26.8 mmol/ L 21.0-3 2.0 Not Available [facility] ([employer]) [address] , [place], [address], 02/23/2025 15:39:03 02/24/20 25 02/23/2025 COMP METAB OLIC PANEL anion gap 16.9 Not Available [facility] ([employer]) [address] , [place], [address], 02/23/2025 15:39:03 02/24/20 25 02/23/2025 COMP METAB OLIC PANEL glucose 200 mg/dL 70-120 high Not Available [facility] ([facility]) [address], [place], [address], 02/23/2025 15:39:03 02/24/20 25 02/23/2025 COMP METAB OLIC PANEL BUN 12 mg/dL 7-18 Not Available [facility] ([facility]) [address], [place], [address], 02/23/2025 15:39:03 02/24/20 25 02/23/2025 COMP METAB OLIC PANEL creatinine 1.1 mg/dL 0.6-1. 3 Not Available [facility] ([employer]) [address], [place], [address], 02/23/2025 15:39:03 02/24/20 25 02/23/2025 COMP METAB [...] brown ing kiney funct ion. Not Available [facility] ([employer]) [address], [place], [address], 02/23/2025 15:39:03 02/24/20 25 02/23/2025 COMP METAB OLIC PANEL osmolality (calculated) 293 mOsm/ kg 275-30 1 OSMOL ALITY IS A CALCU LATIO N UTILI ZING THE SERUM /PLAS MA SODIU M, GLUCO SE AND UREA NITRO GEN (BUN) LEVEL S. FOR THE MOST ACCUR ATE RESUL T A MEASU RED SERUM OSMOL ALITY IS SUGGE STED. Not Available [facility] ([employer]) [address], [place], [address], 02/23/2025 15:39:03 02/24/20 25 02/23/2025 COMP METAB OLIC PANEL total protein 8.1 g/dL 6.4-8. 2 Not Available [facility] ([employer]) [address] , [place], [address], 02/23/2025 15:39:03 02/24/20 25 02/23/2025 COMP METAB OLIC PANEL albumin 3.6 g/dL 3.4-5. 0 Not Available [facility] ([employer]) [address] , [place], [address], 02/23/2025 15:39:03 02/24/20 25 02/23/2025 COMP METAB OLIC PANEL globulin 4.5 Not Available [facility] ([employer]) [address], [place], [address], 02/23/2025 15:39:03 02/24/20 25 02/23/2025 COMP METAB OLIC PANEL alb/glob ratio 0.8 0.7-2 Not Available [facility] ([employer]) [address], [place], [address], 02/23/2025 15:39:03 02/24/20 25 02/23/2025 COMP METAB OLIC PANEL calcium 10.2 mg/dL 8.5-10 .5 Not Available [facility] ([employer]) [address], [place], [address], 02/23/2025 15:39:03 02/24/20 25 02/23/2025 COMP METAB OLIC PANEL bilirubin total 0.60 mg/dL 0.10-1 .00 Not Available [facility] ([employer]) [address] [place], [address], 02/23/2025 15:39:03 02/24/20 25 02/23/2025 COMP METAB OLIC PANEL AST (SGOT) 46 U/L 0-37 high Not Available [facility] ([employer]) [address] [place], [address], 02/23/2025 15:39:03 02/24/20 25 02/23/2025 COMP METAB OLIC PANEL ALT (SGPT) 78 U/L 0-65 high Not Available [facility] ([facility] [employer]) [address], [place], [address], 02/23/2025 15:39:03 02/24/20 25 02/23/2025 COMP METAB OLIC PANEL alk phosphatase 111 U/L 46-116 Not Available [facility] ([employer]) [address], [place], [address], 02/23/2025 15:39:03 02/24/20 25 02/23/2025 C-KARLI CTIVE PROTE IN (CRP) C-reactive protein, quant 2.0 mg/dL 0.05-0 .300 high Not Available [facility] ([employer]) [address] [facility], [place], [address], 02/23/2025 15:40:11 02/24/20 25 02/23/2025 SED RATE sed rate auto 9 0-20 Not Available [facility] ([employer]) [address], [place], [address], 02/23/2025 15:43:35 02/24/20 25 02/27/2025 URINE CULTU RE,CO MPREH ENSIV E urine culture,comp rehensive FINAL REPORT abnormal Not Available [facility] ([facility]) [address], [place], [address], 02/27/2025 19:09:52 02/24/20 25 02/27/2025 URINE CULTU [...] units per mL Not Available [facility] ([facility]) [address] [facility], [place], [address], 02/27/2025 19:09:52 02/24/20 25 02/27/2025 URINE CULTU [...] Cefta rolin e Not Available [facility] ([facility]) [address] [facility], [place], [address], 02/27/2025 19:09:52 02/24/20 25 02/27/2025 URINE CULTU [...] mycin R S Not Available [facility] ([facility]) [address] [facility], [place], [address], 02/27/2025 19:09:52 02/24/20 25 02/23/2025 urina lysis , dipst ick Leukocytes (reference range) trace Not Available [place] [address], [place], [address], 02/23/2025 14:16:48 02/24/20 25 02/23/2025 urina lysis , dipst ick Nitrite (reference range:) negati ve Not Available [place] [address], [place], [address], 02/23/2025 14:16:48 02/24/20 25 02/23/2025 urina lysis , dipst ick Urobilinogen (reference range) 0.2 Not Available [place] [address] [address] [facility] [address], [place], [address], 02/23/2025 14:16:48 02/24/20 25 02/23/2025 urina lysis , dipst ick Protein (reference range) negati ve Not Available [place] [address] [address] [facility] [address], [place], [address], 02/23/2025 14:16:48 02/24/20 25 02/23/2025 urina lysis , dipst ick pH (reference range 5-8.5) 6.0 Not Available [place] [address], [place], [address], 02/23/2025 14:16:48 02/24/20 25 02/23/2025 urina lysis , dipst ick Blood (reference range:) small Not Available [place] [address] [address] [facility] [address], [place], [address], 02/23/2025 14:16:48 02/24/20 25 02/23/2025 urina lysis , dipst ick Specific [place] (reference range) 1.015 Not Available [place] [address] [address] [facility] [address], [place], [address], 02/23/2025 14:16:48 02/24/20 25 02/23/2025 urina lysis , dipst ick Ketone (reference range) negati ve Not Available [place] [address] [address] [facility] [address], [place], [address], 02/23/2025 14:16:48 02/24/20 25 02/23/2025 urina lysis , dipst ick Bilirubin (reference range) negati ve Not Available [place] [address] [address] [facility] [address], [place], [address], 02/23/2025 14:16:48 02/24/20 25 02/23/2025 urina lysis , dipst ick Glucose (reference range) 500 Not Available [place] [address] [address] [facility] [address], [place], [address], 02/23/2025 14:16:48 02/24/20 25 02/23/2025 urina lysis , dipst ick Color (reference range: yellow-brown ) Dark Yellow Not Available [place] [address] [address] [facility] [address], [place], [address], 02/23/2025 14:16:48 Result Notes None recorded. Problems Name Problem SNOMED Code Status Onset Date Resolution Date Notes Provider Name and Address Organization Details Recorded Time Syncope 446834593 Active 2021 Malina Hernandez DO [address], [place], [address] , [place] 15:33:04 Hypersomnia 09673413 Active 2021 Malina Hernandez DO [address] [facility] [place], [address] , [place] [facility] [facility] & [place] 15:34:08 Problem Notes None recorded. Procedures Surgical History Date Name Laterality Status Provider Name and Address Organization Details Recorded Time 09/25/20 23 Cystoscopy-Female completed Silvio Valdez MD [address], [place], [address], [place] [facility] & [place] 09/25/2023 15:26:11 04/04/20 22 Date of Last Pap Smear completed Vandana Eugenioa [place] [facility] & [place] 10/03/2022 14:31:43 10/28/19 22 Trim Setter Surgery completed Vandana Dalla [place] 10/03/2022 14:45:45 10/28/19 17 Cholecystectomy completed Vandana Eugenioa [place] [facility] & [place] 10/03/2022 14:32:27 10/28/19 14 Other completed Vandana Dalla [place] 10/03/2022 14:44:51 cardiac catheterization completed Vandana Dalla [place] 10/03/2022 14:46:31 strabismus surgery completed Vandana Dalla [place] 10/03/2022 14:55:15 Imaging Results None recorded. Procedure Notes None recorded. Medical Equipment None Reported. Allergies Allergen ID Allergen Name Allergen Category Reaction Reaction Severity Criticality Documentation Date Start Date Code Code System Note Provider Name and Address Organization Details Recorded Time 44033 aspirin medicatio n chest pain wheezing moderate severe Not available 10/02/2022 1191 RxNorm Vandana Eugenioa null, [place] [facility] & [place] 09:22:42 72492 Bactrim medicatio n arthralgi a (joint pain) muscle cramps severe severe Not available 10/02/2022 00009 9 RxNorm Vandana Dalla null, [place] [facility] & [place] 2 09:22:49 13015 insect venom environme nt confusion cough dizziness fever flushing headache wheezing moderate moderate moderate mild moderate moderate moderate Not available 10/02/2022 22126 UNK Vandana catherine, [place] - [facility] & [place] 2 09:23:13 14838 Pneumococ georges vaccine Not available anaphylax is chest pain facial swelling nausea rash wheezing moderate moderate moderate moderate moderate moderate Not available 10/02/2022 93398 7 RxNorm Vandana catherine, [place]IE[place] - [facility] & [place] 2 09:23:25 84836 rosuvasta tin medicatio n eye swelling facial swelling respirato ry distress moderate moderate moderate Not available 10/02/2022 25549 2 RxNorm Vandana catherine, [place]IE[place] - [facility] & [place] 2 09:23:35 Medications Name Sig Start Date [...] % 80 /min 98.6 [degF] 49.6 kg/m2 818740. 86 g 116 mm[Hg] 100 mm[Hg] Bianca Smith [place] [facility] 5 13:59:18 Date Recorded Body height Heart rate Oxygen saturation Oxygen saturation in Arterial blood by Pulse oximetry Heart rate Body temperature Body mass index (BMI) Body weight Systolic blood pressure Diastolic blood pressure Provider Name and Address Organization Details Last Updated DateTime 5 160.02 cm 60 /min 97 % 97 % 60 /min 97.7 [degF] 49.6 kg/m2 081428. 86 g 119 mm[Hg] 79 mm[Hg] Bianca Smith [place] [facility] & [place] 5 13:31:54 Date Recorded Body height Body temperature Oxygen saturation Oxygen saturation in Arterial blood by Pulse oximetry Inhaled oxygen flow rate Heart rate Body mass index (BMI) Body weight Systolic blood pressure Diastolic blood pressure Provider Name and Address Organization Details Last Updated DateTime 3 157.48 cm 97.1 [degF] 98 % 98 % 2 L/min 89 /min 48.3 kg/m2 369962. 39 g 128 mm[Hg] 98 mm[Hg] Phillip Morrison [facility] & [place] 3 13:04:48 Date Recorded Body height Body mass index (BMI) Body weight Systolic blood pressure Diastolic blood pressure Provider Name and Address Organization Details Last Updated DateTime 08/07/2023 157.48 cm 49.4 kg/m2 467119.9 4 g 125 mm[Hg] 75 mm[Hg] Britney Yee [facility] & [place] 3 15:05:24 Date Recorded Body height Body mass index (BMI) Body weight Systolic blood pressure Diastolic blood pressure Provider Name and Address Organization Details Last Updated DateTime 09/25/2023 157.48 cm 51.2 kg/m2 120222.8 6 g 126 mm[Hg] 76 mm[Hg] Ioana Ayala [facility] & [place] 3 15:07:04 Social History Question Answer Notes LastModified by [employer] ion Details LastModified Time Tobacco Smoking Status Never Smoker Vandana catherine, [facility] & [place] 10/03/2022 14:32:09 Do You Have An Advance [...] Are You Currently In School? No [employer] [email or web address] Information not available 09/25/2023 Sex: Female Functional Status Question Answer Note LastModified by Organizat ion Details LastModified Time Do you use any illicit or recreational drugs? No Information not available 10/03/2022 What is your level of alcohol consumption? 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 Occasional Information not available 10/03/2022 Mental Status Question Answer Note LastModified by Organization D etails LastModified Time Do you feel stressed (tense, restless, nervous, or anxious, or unable to sleep at night)? [id number] Information not available 10/03/2022 Family History Relationship [...] SNOMED-CT Code Diagnosis ICD10 Code Diagnosis Note [id number] Malina Hernandez, DO [facility] [address] [facility] [place] [address] 10/03/2022 14:07:23 10/03/2022 15:38:25 Syncope [id number] R55 She has been experienci ng these stereotypi georges passing out episodes for five years. No definite witnessed convulsion s but some associated brief confusion afterwards .will order EEG to rule out neurologic causes of syncope Hypersomnia [id number] G47 .10 She describes some significan t episodes of pathologic al sleepiness . She will fall asleep without warning in the middle of talking. This is very infrequent but can be suggestive of narcolepsy . Will order PSG with MSLT to evaluate this in more detail. [id number] Micheline Lackey MD [facility] Surgery [address] [place] [address],[address] [place] [address] 04/02/2023 12:53:55 04/02/2023 13:53:12 Pelvic mass [id number] R19.00 Possible lymphocele versus ovarian remnant from [...] patient with lab levels and consider further FIELD SCOUT follow up. [id number] Silvio Valdez MD [facility] Urology [address] [place] [address],[address] [place] [address] 08/07/2023 14:35:57 08/07/2023 15:40:17 Recurrent urinary tract infection [id number] N39.0 Kidney stone [id number] N2 0.0 Chronic th oracic back pain [id number] 84486 M54.6 Microscopic hematuria 19 [id number] R31.29 [id number] Silvio Valdez MD [facility] [address] [place] [address],[address] [place] [address] 09/25/2023 14:26:57 09/25/2023 15:25:02 Recurrent urinary tract infection [id number] N39.0 Kidney stone 05400240 N2 0.0 Microscopic hematuria 19 [id number] R31.29 [id number] [facility] [address] [facility] [address] [place] [address] 02/23/2025 13:48:33 02/23/2025 14:17:11 Recurrent urinary tract infection [id number] N39.0 Will check lab work. Will send urine off for a culture. Will see patient back in 1 week. 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 Patient will follow up in 2 weeks. Call the office if anything persists or worsens. 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..] Patient states she is seen her senior web applications developer for this, was told it is possibly a lymphocele. Micheline Lackey MD [address] [facility], [place], [address], [place] - [facility] - [place] & [place] 04/18/2023 12:50:43 08/07/2023 text/html Location: Histor y [...] is status post hysterectomy. Silvio Valdez MD [address] [facility], [place], [address], [facility] - [facility] - [place] & [place] 08/07/2023 15:35:17 09/25/2023 text/html Patient returns to [...] Silvio Valdez MD [address], [place], [address], [facility] & [place] 09/25/2023 15:30:10 02/23/2025 text/html patient presents to [...] 2025. Marilou David APRN [address], [place], [address], [facility] - [facility] & [place] 02/24/2025 10:59:38 03/02/2025 text/html patient presents to clinic for follow up. Urine culture results received. Patient denies any fever. She is scheduled to have surgery to remove her stone on . Marilou David APRN [address], [place], [address], [facility] & [place] 03/02/2025 13:35:40 OBGyn Episode No OBEpisode recorded.
== END 2025-04-27 13:55 | disposition home or self-care (01) ==
LOC: INF 13:28
PROVIDERS: PCP Internal Medicine; Visit Provider Internal Medicine
DX: N39.0 Urinary tract infection, site not specified (principal)
CPT/HCPCS: 96523

== ENCOUNTER 2025-04-29 14:46 | Outpatient (CLI) | payer OTHER, SELFPAY ==
--- OUTSIDE RECORDS SUMMARY | 2025-04-29 14:49 | XMS_ITS | Data Portability ---
Author Organization [place] Alejandro ADMIN Address [address] [place] [id number] Care Team Providers Care Supervisor Adult Education Name Role Phone ZAHRAA BENAVIDES Primary Care Provider [phone] Assessment Encounter Date Assessment Date Assessment LastModified by Organization Details LastModified Time 08/07/2023 08/07/[address] scan images onto our system. Will review to determine the degree of stone burden bilaterally in the kidneys. Will also plan cystoscopy and pelvic exam in the office in the near future. [email or web address] Not available 08/07/2023 15:34:46 09/25/2023 09/25/2023 I [...] in 6 months with KUB and UA. [email or web address] Not available 09/25/2023 15:29:09 Plan of Treatment Reminders Order Date Submit Date Provider Last Modified By Organization Details Last Modified Time Details Appointments None recorded. Lab urinalysis, dipstick 2024 025 [email or web address] [facility], [address], [place], [address], 5 14:18:52 CBC w/ diff 2024 025 [facility] (Registration ), [address], [place], [address], 5 16:11:55 CMP, serum or plasma 2024 025 [facility] (Registration ), [address], [place], [address], 5 15:39:03 ESR (erythrocyt e sedimentati on rate), blood [address] (Registration ), [address] [facility], [place], [address], 5 08:54:47 C-reactive protein, quantitativ e, serum or plasma [address] (Registration ), [address], [place], [address], 5 08:54:48 culture, urine 2024 025 [place] [facility], [address], [place], [address], 5 19:09:52 urinalysis, dipstick 2022 023 [email or web address] [facility], [address], [address], [place], [address], 3 16:08:29 Referral None recorded. Procedures None [...] 7.7 - 58.5 Perfo rmed at: [facility] n [address] [place] [address] 1262 Lab Dire[facility] tor: Los carson PhD, Phone : [phone] Not Available [facility] ([facility]) [address] [place], [address], 04/03/2023 10:13:10 04/02/20 23 04/03/2023 FSH FSH, serum 5.4 mIU/m L Adult Femal e: Folli cular phase 3.5 - 12.5 Ovula tion phase 4.7 - 21.5 Lutea l phase 1.7 - 7.7 Postm enopa usal 25.8 - 134.8 Perfo rmed at: [facility] n [address] [place] [address] 1261 Lab [facility] tor: Los carson PhD, Phone : [phone] Not Available [facility] ([facility]) [address] [facility], [place], [address], 04/03/2023 10:14:16 08/07/20 23 08/07/2023 urina lysis , dipst ick Leukocytes (reference range) trace Not Available [facility] [address] [place] [address], [address], 08/07/2023 15:15:15 08/07/20 23 08/07/2023 urina lysis , dipst ick Nitrite (reference range:) negati ve Not Available [facility] [address] [place] [address], [address], 08/07/2023 15:15:15 08/07/20 23 08/07/2023 urina lysis , dipst ick Urobilinogen (reference range) 0.2 Not Available [facility] [address] [place] [address] [address], [place], [address], 08/07/2023 15:15:15 08/07/20 23 08/07/2023 urina lysis , dipst ick Protein (reference range) negati ve Not Available [facility] [address], [place], [address], 08/07/2023 15:15:15 08/07/2008/07/2023 urina lysis , dipst ick pH (reference range 5-8.5) 6.0 Not Available [facility] [address], [place], [address], 08/07/2023 15:15:15 08/07/2008/07/2023 urina lysis , dipst ick Blood (reference range:) small Not Available [facility], [place], [address], 08/07/2023 15:15:15 08/07/20 23 08/07/2023 urina lysis , dipst ick Specific Scandia (reference range) 1.015 Not Available [facility], [place], [address], 08/07/2023 15:15:15 08/07/20 23 08/07/2023 urina lysis , dipst ick Ketone (reference range) negati ve Not Available [address], [place], [address], 08/07/2023 15:15:15 08/07/20 23 08/07/2023 urina lysis , dipst ick Bilirubin (reference range) negati ve Not Available [address], [place], [address], 08/07/2023 15:15:15 08/07/20 23 08/07/2023 urina lysis , dipst ick Glucose (reference range) 250 Not Available [facility] [address], [place], [address], 08/07/2023 15:15:15 08/07/20 23 08/07/2023 urina lysis , dipst ick Color (reference range: yellow-brown ) Yellow Not Available [facility] [address], [place], [address], 08/07/2023 15:15:15 02/24/20 25 02/23/2025 CBC AUTO W DIFF WBC 11.3 K/uL 4.0-10 .5 high Not Available [facility] ([facility]) [address], [place], [address], 02/23/2025 15:02:28 02/24/20 25 02/23/2025 CBC AUTO W DIFF RBC 5.7 M/mm3 4.2-6. 4 Not Available [facility] ([facility]) [address] , [place], [address], 02/23/2025 15:02:28 02/24/20 25 02/23/2025 CBC AUTO W DIFF HGB 15.8 gm/dL 12.5-1 6.0 Not Available [facility] ([facility]) [address] , [place], [address], 02/23/2025 15:02:28 02/24/20 25 02/23/2025 CBC AUTO W DIFF HCT 48.8 % 37.0-4 7.0 high Not Available [facility] ([facility]) [address], [place], [address], 02/23/2025 15:02:28 02/24/20 25 02/23/2025 CBC AUTO W DIFF MCV 86.4 fL 78-100 Not Available [facility] ([facility]) [address], [place], [address], 02/23/2025 15:02:28 02/24/20 25 02/23/2025 CBC AUTO W DIFF MCH 28.0 pg 27-31 Not Available [facility] ([facility]) [address], [place], [address], 02/23/2025 15:02:28 02/24/20 25 02/23/2025 CBC AUTO W DIFF MCHC 32.4 g/dL 32-36 Not Available [facility] ([facility]) [address], [place], [address], 02/23/2025 15:02:28 02/24/20 25 02/23/2025 CBC AUTO W DIFF RDW 13.7 % 11.5-1 4.0 Not Available [facility] ([facility]) [address], [place], [address], 02/23/2025 15:02:28 02/24/20 25 02/23/2025 CBC AUTO W DIFF platelet count 380 K/uL 150-45 0 Not Available [facility] ([facility]) [address] , [place], [address], 02/23/2025 15:02:28 02/24/20 25 02/23/2025 CBC AUTO W DIFF MPV 10.3 fL 6-9.5 high Not Available [facility] ([facility]) [address], [place], [address], 02/23/2025 15:02:28 02/24/20 25 02/23/2025 CBC AUTO W DIFF neutrophil% 66.5 % 43-65 high Not Available [facility] ([facility]) [address], [place], [address], 02/23/2025 15:02:28 02/24/20 25 02/23/2025 CBC AUTO W DIFF lymphocyte% 24.3 % 20.5-4 5.5 Not Available [facility] ([facility]) [address], [place], [address], 02/23/2025 15:02:28 02/24/20 25 02/23/2025 CBC AUTO W DIFF monocyte% 6.0 % 5.5-11 .7 Not Available [facility] ([facility]) [address] [facility], [place], [address], 02/23/2025 15:02:28 02/24/20 25 02/23/2025 CBC AUTO W DIFF eosinophil% 2.3 % 0.9-2. 9 Not Available [facility] ([facility]) [address] [place], [address], 02/23/2025 15:02:28 02/24/20 25 02/23/2025 CBC AUTO W DIFF basophil% 0.6 % 0.2-1. 0 Not Available [facility] ([facility]) [address] [place], [address], 02/23/2025 15:02:28 02/24/20 25 02/23/2025 CBC AUTO W DIFF immature granulocytes % 0.3 % 0.0-0. 8 Not Available [facility] ([facility]) [address] [place], [address], 02/23/2025 15:02:28 02/24/20 25 02/23/2025 CBC AUTO W DIFF nucleated red blood cells % 0.0 % Not Available [facility] ([facility]) [address] [place], [address], 02/23/2025 15:02:28 02/24/20 25 02/23/2025 CBC AUTO W DIFF neutrophil# 7.5 K/uL 2.2-4. 8 high Not Available [facility] ([facility]) [address], [place], [address], 02/23/2025 15:02:28 02/24/20 25 02/23/2025 CBC AUTO W DIFF lymphocyte# 2.7 cell/ mcL 1.3-2. 9 Not Available [facility] ([facility]) [address], [place], [address], 02/23/2025 15:02:28 02/24/20 25 02/23/2025 CBC AUTO W DIFF monocyte# 0.7 cell/ mcL 0.3-0. 8 Not Available [facility] ([facility]) [address], [place], [address], 02/23/2025 15:02:28 02/24/20 25 02/23/2025 CBC AUTO W DIFF eosinophil# 0.3 cell/ mcL 0-0.2 high Not Available [facility] ([facility]) [address], [place], [address], 02/23/2025 15:02:28 02/24/20 25 02/23/2025 CBC AUTO W DIFF basophil# 0.1 cell/ mcL 0.0-1. 0 Not Available [facility] ([facility]) [address], [place], [address], 02/23/2025 15:02:28 02/24/20 25 02/23/2025 CBC AUTO W DIFF immature gramulocytes # 0.03 K/uL Not Available [facility] ([facility]) [address], [place], [address], 02/23/2025 15:02:28 02/24/20 25 02/23/2025 CBC AUTO W DIFF nucleated red blood cells # 0.00 K/uL Not Available [facility] ([facility]) [address], [place], [address], 02/23/2025 15:02:28 02/24/20 25 02/23/2025 CBC AUTO W DIFF manual differential NO Not Available [facility] ([facility]) [address] , [place], [address], 02/23/2025 15:02:28 02/24/20 25 02/23/2025 COMP METAB OLIC PANEL sodium 138 mmol/ L 136-14 5 Not Available [facility] ([facility]) [address] , [place], [address], 02/23/2025 15:39:03 02/24/20 25 02/23/2025 COMP METAB OLIC PANEL potassium 3.7 mmol/ L 3.6-5. 0 Not Available [facility] ([facility]) [address] , [place], [address], 02/23/2025 15:39:03 02/24/20 25 02/23/2025 COMP METAB OLIC PANEL chloride 98 mmol/ L 98-107 Not Available [facility] ([facility]) [address] , [place], [address], 02/23/2025 15:39:03 02/24/20 25 02/23/2025 COMP METAB OLIC PANEL carbon dioxide 26.8 mmol/ L 21.0-3 2.0 Not Available [facility] ([facility]) [address] , [place], [address], 02/23/2025 15:39:03 02/24/20 25 02/23/2025 COMP METAB OLIC PANEL anion gap 16.9 Not Available [facility] ([facility]) [address] , [place], [address], 02/23/2025 15:39:03 02/24/20 25 02/23/2025 COMP METAB OLIC PANEL glucose 200 mg/dL 70-120 high Not Available [facility] ([facility]) [address], [place], [address], 02/23/2025 15:39:03 02/24/20 25 02/23/2025 COMP METAB OLIC PANEL BUN 12 mg/dL 7-18 Not Available [facility] ([facility]) [address], [place], [address], 02/23/2025 15:39:03 02/24/20 25 02/23/2025 COMP METAB OLIC PANEL creatinine 1.1 mg/dL 0.6-1. 3 Not Available [facility] ([facility]) [address], [place], [address], 02/23/2025 15:39:03 02/24/20 25 02/23/2025 COMP METAB [...] brown ing kiney funct ion. Not Available [facility] ([facility]) [address], [place], [address], 02/23/2025 15:39:03 02/24/20 25 02/23/2025 COMP METAB OLIC PANEL osmolality (calculated) 293 mOsm/ kg 275-30 1 OSMOL ALITY IS A CALCU LATIO N UTILI ZING THE SERUM /PLAS MA SODIU M, GLUCO SE AND UREA NITRO GEN (BUN) LEVEL S. FOR THE MOST ACCUR ATE RESUL T A MEASU RED SERUM OSMOL ALITY IS SUGGE STED. Not Available [facility] ([facility]) [address], [place], [address], 02/23/2025 15:39:03 02/24/20 25 02/23/2025 COMP METAB OLIC PANEL total protein 8.1 g/dL 6.4-8. 2 Not Available [facility] ([facility]) [address] , [place], [address], 02/23/2025 15:39:03 02/24/20 25 02/23/2025 COMP METAB OLIC PANEL albumin 3.6 g/dL 3.4-5. 0 Not Available [facility] ([facility]) [address] , [place], [address], 02/23/2025 15:39:03 02/24/20 25 02/23/2025 COMP METAB OLIC PANEL globulin 4.5 Not Available [facility] ([facility]) [address], [place], [address], 02/23/2025 15:39:03 02/24/20 25 02/23/2025 COMP METAB OLIC PANEL alb/glob ratio 0.8 0.7-2 Not Available [facility] ([facility]) [address], [place], [address], 02/23/2025 15:39:03 02/24/20 25 02/23/2025 COMP METAB OLIC PANEL calcium 10.2 mg/dL 8.5-10 .5 Not Available [facility] ([facility]) [address], [place], [address], 02/23/2025 15:39:03 02/24/20 25 02/23/2025 COMP METAB OLIC PANEL bilirubin total 0.60 mg/dL 0.10-1 .00 Not Available [facility] ([facility]) [address] [place], [address], 02/23/2025 15:39:03 02/24/20 25 02/23/2025 COMP METAB OLIC PANEL AST (SGOT) 46 U/L 0-37 high Not Available [facility] ([facility]) [address] [place], [address], 02/23/2025 15:39:03 02/24/20 25 02/23/2025 COMP METAB OLIC PANEL ALT (SGPT) 78 U/L 0-65 high Not Available [facility] ([facility]) [address], [place], [address], 02/23/2025 15:39:03 02/24/20 25 02/23/2025 COMP METAB OLIC PANEL alk phosphatase 111 U/L 46-116 Not Available [facility] ([facility]) [address], [place], [address], 02/23/2025 15:39:03 02/24/20 25 02/23/2025 C-KARLI CTIVE PROTE IN (CRP) C-reactive protein, quant 2.0 mg/dL 0.05-0 .300 high Not Available [facility] ([facility]) [address] [facility], [place], [address], 02/23/2025 15:40:11 02/24/20 25 02/23/2025 SED RATE sed rate auto 9 0-20 Not Available [facility] ([facility]) [address], [place], [address], 02/23/2025 15:43:35 02/24/20 25 02/27/2025 URINE CULTU RE,CO MPREH ENSIV E urine culture,comp rehensive FINAL REPORT abnormal Not Available [facility] ([facility]) [address], [place], [address], 02/27/2025 19:09:52 02/24/20 25 02/27/2025 URINE CULTU [...] per mL Not Available [facility] ([facility]) [address] [facility], [place], [address], 02/27/2025 19:09:52 02/24/20 25 02/27/2025 URINE CULTU [...] rolin e Not Available [facility] ([facility]) [address] [facility], [place], [address], 02/27/2025 19:09:52 02/24/20 25 02/27/2025 URINE CULTU [...] R S Not Available [facility] ([facility]) [address] [facility], [place], [address], 02/27/2025 19:09:52 02/24/20 25 02/23/2025 urina lysis , dipst ick Leukocytes (reference range) trace Not Available [place] [address], [place], [address], 02/23/2025 14:16:48 02/24/20 25 02/23/2025 urina lysis , dipst ick Nitrite (reference range:) negati ve Not Available [place] [address], [place], [address], 02/23/2025 14:16:48 02/24/20 25 02/23/2025 urina lysis , dipst ick Urobilinogen (reference range) 0.2 Not Available [place] [address] [address] [facility] [address], [place], [address], 02/23/2025 14:16:48 02/24/20 25 02/23/2025 urina lysis , dipst ick Protein (reference range) negati ve Not Available [place] [address] [address] [facility] [address], [place], [address], 02/23/2025 14:16:48 02/24/20 25 02/23/2025 urina lysis , dipst ick pH (reference range 5-8.5) 6.0 Not Available [place] [address], [place], [address], 02/23/2025 14:16:48 02/24/20 25 02/23/2025 urina lysis , dipst ick Blood (reference range:) small Not Available [place] [address] [address] [facility] [address], [place], [address], 02/23/2025 14:16:48 02/24/20 25 02/23/2025 urina lysis , dipst ick Specific Scandia (reference range) 1.015 Not Available [place] [address] [address] [facility] [address], [place], [address], 02/23/2025 14:16:48 02/24/20 25 02/23/2025 urina lysis , dipst ick Ketone (reference range) negati ve Not Available [place] [address] [address] [facility] [address], [place], [address], 02/23/2025 14:16:48 02/24/20 25 02/23/2025 urina lysis , dipst ick Bilirubin (reference range) negati ve Not Available [place] [address] [address] [facility] [address], [place], [address], 02/23/2025 14:16:48 02/24/20 25 02/23/2025 urina lysis , dipst ick Glucose (reference range) 500 Not Available [place] [address] [address] [facility] [address], [place], [address], 02/23/2025 14:16:48 02/24/20 25 02/23/2025 urina lysis , dipst ick Color (reference range: yellow-brown ) Dark Yellow Not Available [place] [address] [address] [facility] [address], [place], [address], 02/23/2025 14:16:48 Result Notes None recorded. Problems Name Problem SNOMED Code Status Onset Date Resolution Date Notes Provider Name and Address Organization Details Recorded Time Syncope 693881744 Active 2021 Malina Hernandez DO [address], [place], [address] , [place] [facility] - [place] & [place] 15:33:04 Hypersomnia 84059660 Active 2021 Malina Hernandez DO [address] [facility] [place], [address] , [place] [facility] & [place] 15:34:08 Problem Notes None recorded. Procedures Surgical History Date Name Laterality Status Provider Name and Address Organization Details Recorded Time 09/25/20 23 Cystoscopy-Female completed Silvio Valdez MD [address], [place], [address], [place] [facility] & [place] 09/25/2023 15:26:11 04/04/20 22 Date of Last Pap Smear completed Vandana Eugenioa [place] [facility] & [place] 10/03/2022 14:31:43 10/28/19 22 Mat Sewer Surgery completed Vandana Dalla [place] [facility] [place] & [place] 10/03/2022 14:45:45 10/28/19 17 Cholecystectomy completed Vandana Eugenioa [place] [facility] [facility] & [place] 10/03/2022 14:32:27 10/28/19 14 Other completed Vandana Dalla [place] [facility] & [place] 10/03/2022 14:44:51 cardiac catheterization completed Vandana Dalla [place] & [place] 10/03/2022 14:46:31 strabismus surgery completed Vandana Dalla [place] [facility] & [place] 10/03/2022 14:55:15 Imaging Results None recorded. Procedure Notes None recorded. Medical Equipment None Reported. Allergies Allergen ID Allergen Name Allergen Category Reaction Reaction Severity Criticality Documentation Date Start Date Code Code System Note Provider Name and Address Organization Details Recorded Time 94054 aspirin medicatio n chest pain wheezing moderate severe Not available 10/02/2022 1191 RxNorm Vandana Eugenioa null, [place] [facility] [facility] & [place] 09:22:42 75597 Bactrim medicatio n arthralgi a (joint pain) muscle cramps severe severe Not available 10/02/2022 58940 9 RxNorm Vandana Dalla null, [place] [facility] & [place] 2 09:22:49 68156 insect venom environme nt confusion cough dizziness fever flushing headache wheezing moderate moderate moderate mild moderate moderate moderate Not available 10/02/2022 11331 UNK Vandana catherine, MATHIE[place] - [facility] & [place] 2 09:23:13 44046 Pneumococ georges vaccine Not available anaphylax is chest pain facial swelling nausea rash wheezing moderate moderate moderate moderate moderate moderate Not available 10/02/2022 81595 7 RxNorm Vandana catherine, MATHIEU - [facility] & [place] 2 09:23:25 67750 rosuvasta tin medicatio n eye swelling facial swelling respirato ry distress moderate moderate moderate Not available 10/02/2022 72068 2 RxNorm Vandana catherine, MATHIEU - [facility] & [place] 2 09:23:35 Medications Name [...] % 80 /min 98.6 [degF] 49.6 kg/m2 165737. 86 g 116/100 mm[Hg] Bianca ELLER - [facility] 5 13:59:18 Date Recorded Body height Heart rate Oxygen saturation Oxygen saturation in Arterial blood by Pulse oximetry Heart rate Body temperature Body mass index (BMI) Body weight Systolic And Diastolic Provider Name and Address Organization Details Last Updated DateTime 5 160.02 cm 60 /min 97 % 97 % 60 /min 97.7 [degF] 49.6 kg/m2 419033. 86 g 119/79 mm[Hg] Bianca ELLER - [facility] 5 13:31:54 Date Recorded Body height Body temperature Oxygen saturation Oxygen saturation in Arterial blood by Pulse oximetry Inhaled oxygen flow rate Heart rate Body mass index (BMI) Body weight Systolic And Diastolic Provider Name and Address Organization Details Last Updated DateTime 3 157.48 cm 97.1 [degF] 98 % 98 % 2 L/min 89 /min 48.3 kg/m2 561526. 39 g 128/98 mm[Hg] Phillip Morrison [facility] & [place] 13:04:48 Date Recorded Body height Body mass index (BMI) Body weight Systolic And Diastolic Provider Name and Address Organization Details Last Updated DateTime 08/07/2023 157.48 cm 49.4 kg/m2 947368.94 g 125/75 mm[Hg] Britney Yee [facility] & [place] 08/07/2023 15:05:24 Date Recorded Body height Body mass index (BMI) Body weight Systolic And Diastolic Provider Name and Address Organization Details Last Updated DateTime 09/25/2023 157.48 cm 51.2 kg/m2 591410.86 g 126/76 mm[Hg] Ioana Ayala [facility] & [place] 09/25/2023 15:07:04 Social History Question Answer Notes LastModified by DataArt Details LastModified Time Tobacco Smoking Status Never Smoker Vandana Harris florin, [facility] & [place] 10/03/2022 14:32:09 Do You Have An Advance Directive? No Information not available 10/03/2022 Are You Blind Or Do You Have Difficulty Seeing? No Information not available 10/03/2022 What Was The Date Of Your Most Recent Tobacco Screening? 09/17/2022 Information not available 10/03/2022 Do You Have Any Pets? Yes [email or web address] Information not available 09/25/2023 Are You Passively Exposed To Smoke? No Information not available 10/03/2022 Are You Currently In School? No [employer] [email or web address] Information not available 09/25/2023 Sex: Female Functional Status Question Answer Note LastModified by Loop Appizat ion Details LastModified Time Do you use any illicit or recreational drugs? No Information not available 10/03/2022 What is your level of alcohol consumption? 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 Occasional Information not available 10/03/2022 Mental Status Question Answer Note LastModified by Organization D etails LastModified Time Do you feel stressed (tense, restless, nervous, or anxious, or unable to sleep at night)? [id number] Information not available 10/03/2022 Family History Relationship [...] SNOMED-CT Code Diagnosis ICD10 Code Diagnosis Note [id number] [facility] [address] [facility],[address] [place] [address] 10/03/2022 14:07:23 10/03/2022 15:38:25 Syncope [id number] R55 She has been experienci ng these stereotypi georges passing out episodes for five years. No definite witnessed convulsion s but some associated brief confusion afterwards .will order EEG to rule out neurologic causes of syncope Hypersomnia [id number] G47 .10 She describes some significan t episodes of pathologic al sleepiness . She will fall asleep without warning in the middle of talking. This is very infrequent but can be suggestive of narcolepsy . Will order PSG with MSLT to evaluate this in more detail. 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 [id number] Silvio Valdez MD [facility] [address] [place] [address],[address] [place] [address] 08/07/2023 14:35:57 08/07/2023 15:40:17 Recurrent urinary tract infection 447849628 N39.0 Kidney stone 65019776 N2 0.0 Chronic th oracic back pain 0360267609 26580 M54.6 Microscopic hematuria 19 8278660 R31.29 [id number] Silvio Valdez MD [facility] [address] [place] [address],[address] [place] [address] 09/25/2023 14:26:57 09/25/2023 15:25:02 Recurrent urinary tract infection 259049997 N39.0 Kidney stone 52785301 N2 0.0 Microscopic hematuria 19 3205886 R31.29 [id number] [facility] [address] [facility] [address] [place] [address] 02/23/2025 13:48:33 02/23/2025 14:17:11 Recurrent urinary tract infection 678087562 N39.0 Will check lab work. Will send urine off for a culture. Will see patient back in 1 week. 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 Patient will follow up in 2 weeks. Call the office if anything persists or worsens. 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 Patient states she is seen her change management expert for this, was told it is possibly a lymphocele. Micheline Lackey MD [facility], [place], [address], [facility] [place] 04/18/2023 12:50:43 08/07/2023 text/html Location: [...] status post hysterectomy. MD [address], [place], [address], [facility] & [place] 08/07/2023 15:35:17 09/25/2023 text/html Patient [...] status post hysterectomy. MD [address], [place], [address], [place] - [facility] [place] 09/25/2023 15:30:10 02/23/2025 text/html patient [...] 2025. Marilou David APRN [address], [place], [address], [place] - [facility] [place] 02/24/2025 10:59:38 03/02/2025 text/html patient presents to clinic for follow up. Urine culture results received. Patient denies any fever. She is scheduled to have surgery to remove her stone on . Marilou David APRN [address], [place], [address], [place] [facility] [place] 03/02/2025 13:35:40 OBGyn Episode No OBEpisode recorded.
--- OUTSIDE RECORDS SUMMARY | 2025-04-29 14:49 | XMS_ITS | Encounter Summary ---
Author Organization [facility] Address [address] [place] [address] Care Team Providers Care Vice Chair Name Role Phone Juarez Griffin MD Primary Care Provider [phone] Karen Naqvi DO Unavailable [phone] Encounter Details Date Type Department Care Team ([facility] st Contact Info) Description 02/12/2024 Orders Only External Location [address] [place] [address] Gennaro Cuevas MD [facility] [address] [place] [address] Social History Tobacco Use Types Packs/Day Years [...] documented as of this encounter Care Teams Vice Chair Relationship Specialty Start Date End Date Juarez Griffin MD [address] [place] [address] PCP - General 03/10/21 Karen Naqvi DO [facility] [address] [place] [address] Referring Physician Obstetrics and Gynecology 09/23/24 documented as of this encounter
--- OUTSIDE RECORDS SUMMARY | 2025-04-29 14:49 | XMS_ITS | Clinical Summary ---
Author Organization [facility] Address [address] [facility] [address] [place] [address] Phone Care Team Providers Care Icu Tech Name Role Phone Zofia Perkins Unavailable Unavailable Conditions or Problems Problem Name Problem Code Onset Date Status Entry Date Provider Comment Standard Description Annotate Acute Pyelonephritis 11072282 (SNOMED CT) 01/07 Active 01/07 Malina Ames Acute pyelonephritis Obstructive uropathy with infection N13.6 (ICD-10-C M) 01/07 Active 01/07 Malina Ames Pyonephrosis Neutrophilic leukemoid reaction D72.823 (ICD-10-C M) 01/07 Active 01/07 Malina Ames Leukemoid reaction COPD 26239069 (SNOMED CT) 01/07 Active 01/07 Malina Ames Chronic obstructive pulmonary disease Morbid obesity due to excess calories E66.01 (ICD-10-C M) 01/07 Active 01/07 Malina Ames Morbid (severe) obesity due to excess calories DM Type II E11.9 (ICD-10-C M) 01/07 Active 01/07 Malina Ames Type 2 diabetes mellitus without complications Benign hypertensive heart disease with chronic diastolic heart failure (I50.32) 40919892 (SNOMED CT) 01/07 Active 01/07 Malina Ames Benign hypertension Medications Medication Instructions Start Date Stop Date Generic Name [facility] Provider FOSFOMYCIN TROMETHAMINE 3 GM PACK Take 1 packet by mouth as directed take 1 packet every 3-4 days (2 times weekly) fosfomycin tromethamine 93295716066 Calvin Villarreal MD PREDNISONE 20 MG TABS prednisone 94451213980 Milly Jabierbrianne VITAMIN C 500 MG CAPS twice a day ascorbic acid (vitamin c) 49230545173 Milly Mosquera HIPREX 1 GM TABS Take 1 tablet by mouth twice a day 02/18 methenamine hippurate 08957137905 Calvin Villarreal MD INDOMETHACIN 50 MG CAPS Take 1 capsule by mouth three times a day indomethacin 77856353847 Linda De Leon SUCRALFATE 1 GM TABS Take 1 tablet by mouth four times a day sucralfate 76071953976 Linda De Leon BUMETANIDE 2 MG TABS Take 1 tablet by mouth twice a day bumetanide 32630765950 Linda De Leon PRAVASTATIN SODIUM 10 MG TABS Take 1 tablet by mouth every night pravastatin 29184837508 Linda De Leon ENTRESTO 24-26 MG TABS Take 1 tablet by mouth twice a day sacubitril-valsa rtan 29248789442 Linda De Leon VENTOLIN HFA 108 (90 Base) MCG/ACT AERS Inhale 2 puff by mouth every four to six hours as needed albuterol sulfate 00410810726 Linda De Leon ADVAIR DISKUS 250-50 MCG/ACT AEPB Inhale 1 puff twice a day fluticasone propion-salmeter ol 12089237140 Linda De Leon OMEPRAZOLE 20 MG CPDR Take 1 capsule by mouth once a day omeprazole 62160601197 Linda De Leon METFORMIN HCL 500 MG TABS Take 1 tablet by mouth twice a day metformin 70010454542 Linda De Leon FARXIGA 10 MG TABS Take 10 mg by mouth once a day dapagliflozin propanediol 01391834833 Linda De Leon IBUPROFEN (IBUPROFEN) 800 MG TABS Take 1 tablet by mouth every six hours as needed IBUPROFEN Linda De Leon TIZANIDINE HCL 4 MG TABS Take 1 tablet by mouth as needed tizanidine 25356436055 Linda De Leon TRAMADOL HCL 50 MG TABS every twelve hours tramadol 83990072503 Linda De Leon NITROGLYCERIN 0.[address] 1 tablet under tongue as needed nitroglycerin 70910242649 Linda Moises ONDANSETRON HCL 4 MG TABS Take 1 tablet by mouth every eight hours as needed ondansetron hcl 48139074067 Linda Moises SPIRONOLACTONE 50 MG TABS Take 1 tablet by mouth once a day spironolactone 93993655521 Linda De Leon SITagliptin (JANUVIA) 25 MG tablet Take 1 tablet by mouth once a day JANOLIVER De Leon NEBIVOLOL HCL 5 MG TABS Take 1 tablet by mouth once a day nebivolol 75497673092 Jazieltyree De Leon GLYXAMBI 10-5 MG TABS Take 1 tablet by mouth once a day empagliflozin-li nagliptin 57148048732 Linda De Leon VENTOLIN HFA 108 (90 Base) MCG/ACT AERS INHALE TWO PUFFS BY MOUTH EVERY 4 TO 6 HOURS NEEDED 01/19 albuterol sulfate 82360085632 QIE qieuser TRAMADOL HCL 50 MG TABS Every 12 (Twelve) Hours. 01/19 tramadol 25262824346 QIE qieuser TIZANIDINE HCL 4 MG TABS Take 1 tablet by mouth As Needed. 01/19 tizanidine 93182690826 QIE qieuser SUCRALFATE 1 GM TABS Take 1 tablet by mouth 4 (Four) Times a Day. 01/19 sucralfate 01425890083 QIE qieuser SPIRONOLACTONE 50 MG TABS TAKE ONE TABLET BY MOUTH EVERY DAY 01/19 spironolactone 35301983348 QIE qieuser SITagliptin (JANUVIA) 25 MG tablet Take 1 tablet by mouth Daily. 01/19 JANUVIA QIE qieuser PRAVASTATIN SODIUM 10 MG TABS TAKE ONE TABLET BY MOUTH EVERY DAY AT BEDTIME 01/19 pravastatin 11585866397 QIE qieuser ONDANSETRON HCL 4 MG TABS Take 1 tablet by mouth Every 8 (Eight) Hours As Needed. 04/27 ondansetron hcl 46948273874 QIE qieuser OMEPRAZOLE 20 MG CPDR TAKE ONE CAPSULE BY MOUTH EVERY DAY 04/27 omeprazole 18399063573 QIE qieuser O2 (OXYGEN) 2 L by Alternating Nares route Every Night. OXYGEN QIE qieuser NITROGLYCERIN 0.[address] 1 tablet under the tongue As Needed for Chest Pain. 01/19 nitroglycerin 47423677363 QIE qieuser NEBIVOLOL HCL 5 MG TABS TAKE ONE TABLET BY MOUTH EVERY DAY 01/19 nebivolol 20838865508 QIE qieuser METFORMIN HCL 500 MG TABS Take 1 tablet by mouth 2 (Two) Times a Day. 01/19 metformin 69285286124 QIE qieuser IPRATROPIUM-ALBUT MIK 0.5-2.5 (3) MG/3ML SOLN ipratropium-albu terol 64533893367 QIE qieuser INDOMETHACIN 50 MG CAPS Take 1 capsule by mouth 3 (Three) Times a Day With Meals. 01/19 indomethacin 04787028196 QIE qieuser IBUPROFEN (IBUPROFEN) 800 MG TABS Take 1 tablet by mouth Every 6 (Six) Hours As Needed. 01/19 IBUPROFEN QIE qieuser ENTRESTO 24-26 MG TABS TAKE ONE TABLET BY MOUTH TWICE DAILY 01/19 sacubitril-valsa rtan 01082197084 QIE qieuser GLYXAMBI 10-5 MG TABS Take 1 tablet by mouth Daily. 01/19 empagliflozin-li nagliptin 64142592380 QIE qieuser FARXIGA 10 MG TABS Take 10 mg by mouth Daily. 01/19 dapagliflozin propanediol 42217238894 QIE qieuser BUMETANIDE 2 MG TABS TAKE ONE TABLET BY MOUTH TWICE DAILY 01/19 bumetanide 55199146499 QIE qieuser ADVAIR DISKUS 250-50 MCG/ACT AEPB Inhale 1 puff 2 (Two) Times a Day. 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
--- OUTSIDE RECORDS SUMMARY | 2025-04-29 14:49 | XMS_ITS | Encounter Summary ---
Author Organization [facility] Address [address] [place] [address] Care Team Providers Care Diesel Retrofit Designer Name Role Phone Juarez Griffin MD Primary Care Provider [phone] Karen Naqvi DO Unavailable [phone] Encounter Details Date Type Department Care Team ([facility] st Contact Info) Description 03/12/2025 Orders Only External Location [address] [place] [address] Provider, External Social History Tobacco Use Types [...] drink first t yue in the morning (EYE-SENIOR ARCHITECT/DESIGN MANAGER) to steady your nerves or to [...] Comment:+ 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 Source: [facility] [employer]. This patient will require contact precautions indefinitely. 04/01/2024 Assessment Noted Time A fall risk assessment has been complete d for the patient 10/05/2024 1:53 PM EST A Body Mass Index follow-up plan has been documented for the patient 04/12/2024 12:42 PM EDT documented as of this encounter Care Teams Diesel Retrofit Designer Relationship Specialty Start Date End Date Juarez Griffin MD [address] [facility] [address] [place] [address] PCP - General 03/10/21 Karen Naqvi DO [address] [facility] [address] [place] [address] Referring Physician Obstetrics and Gynecology 09/23/24 documented as of this encounter
--- OUTSIDE RECORDS SUMMARY | 2025-04-29 14:49 | XMS_ITS | Data Portability ---
Author Organization [facility] ABHAY [facility] [place] [facility] Address [address] [facility] [address] [place] [address] Assessment No assessment recorded. Plan of Treatment Reminders Order Date Submit Date Provider Last Modified By Organization Details Last Modified Time Details Appointments None recorded. Lab None recorded. Referral aquatic therapy referral 2017 018 [email or web address] 2 Not available 8 11:14:18 cognitive behavioral therapy referral 2017 018 [email or web address] 2 [facility], [address] [facility], [facility] [address], [place], [address], 8 11:14:19 occupationa l therapist referral 2017 018 [email or web address] 2 Not available 8 11:14:17 Procedures None recorded. Surgeries None recorded. Imaging None recorded. Medication Orders None recorded. Patient TargetsNo targets recorded. Patient Instructions Encounter Date Encounter Id Patient Instructions Last Modified By Organization Details Last Modified Time 08/13/2018 [id number] learning about healthy weight Not available 08/13/2018 [...] Name and Address Organization Details Recorded Time 661381 aspirin medicatio n Not available Not available Not available 08/13/2018 1191 [facility]Norm Melinda Hudson [facility] 8 10:01:54 Medications Name Sig Start Date [...] Address Organization Details Last Updated DateTime 8 106279. 12 g 48.2 kg/m2 160.02 cm 18 /min 61 /min 132/96 mm[Hg] Melinda Hudson [facility] 8 10:06:40 Social History Question Answer Notes LastModified by Organizat ion Details LastModified Time Tobacco Smoking Status Never Smoker Melinda Hudson [facility] 08/13/2018 10:02:03 What Was The Date Of Your Most Recent Tobacco Screening? 08/13/2018 Information n ot available 12/15/2019 Sex: Unknown Functional Status None recorded. Mental Status None recorded. Family History Relationship Description Onset Age of this Age Resolved Age Notes LastModified by Organization Details LastModified Time Father No current problems or disability [email or web address] Not available 08/13 10:02:01 Mother No current problems or disability [email or web address] Not available 08/13 10:02:01 Medical History Condition Response Emphysema N COPD N Arthritis Y Acid Reflux (GERD) Y Rheumatoid Arthritis N Diabetes N Bleeding Disorder N Asthma Y Heart Disease Y Hypertension Y Gynecological HistoryNo gynecological history recorded. Obstetrics History GPAL:G 0 P 0 0 0 0 Past Encounters Encounter ID Performer Location Encounter Start Date Encounter Closed Date Diagnosis/Indication Diagnosis SNOMED-CT Code Diagnosis ICD10 Code Diagnosis Note [id number] CLIFF BARBER MD [facility] [address] [place] [address] 08/13/2018 09:13:44 08/13/2018 10:48:47 Pain of multiple joints 15668516 M25.50 she has clinical features of Dixon OA. no features of an inflammato ry arthritis noted. no features of rheumatoid noted. 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 would suggest to avoid steroids and start OT as stated below. she can RTC with me as prn. 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 Health Concerns Section Related Observation LastModified by Organization Detai ls LastModified Time None Recorded Concern Status LastModified by Organization Details LastModified Time None Recorded Advance Directives Directive None Recorded Payers Insurance Date Sequence Insurance Name Policy Number Policy Valdivia Covered Member ID Valdivia Member ID Guarantor Name 02/03/2024 1 [facility] (MEDICAID HMO) [facility] [id number] 01/24/2024 1 [place] FFS/TRADITIO NAL [facility] [id number] [facility] 02/04/2024 1 [facility] (MEDICAID HMO) [facility] [id number] [facility] 01/31/2024 1 [facility] [facility] [id number] Lissy [facility] [id number] L[facility] Notes Date Note Type Note [...] and a normal TSH. CLIFF BARBER MD [facility] [place], [address], [facility] 08/13/2018 17:00:47 OBGyn Episode No OBEpisode recorded.
--- OUTSIDE RECORDS SUMMARY | 2025-04-29 14:50 | XMS_ITS | Clinical Summary ---
Author Organization [facility] Address [address] [place] [address] Care Team Providers Care Buncher Operator Name Role Phone Juarez Griffin MD Primary Care Provider [phone] Karen Naqvi DO Unavailable [phone] Allergies Active Allergy Reactions Criticality Noted Date [...] Description 03/12/2025 Orders Only External Location [address] [place] [address] Provider, External from Last 3 Months Immunizations [...] drink first t yue in the morning (EYE-COMMANDING OFFICER GARAGE) to steady your nerves or to get [...] PPSV23) 11/01/2021 09/06/2021 [facility]-Breast Cancer Screening 2023 [id number] Vaccine ( - season) 2024 10/07/2022, 08/21/2021 [facility]-Diabetes: Hemoglobin A1C 10/08/2024 04/10/2024 [facility]-Influenza Vaccine (#1) 06/28/202508/05, 10/29/2022 [facility]-Depression Screening 10/05/2025 10/05/2024 [facility]-Zoster Vaccines Completed 10/30/2023, 05/27/2023 [facility]-HIV Screening Completed 04/10/2024 [facility]-Hepatitis C Screening Completed 04/10/2024 [facility]-Obesity Intervention Completed 04/10/2024 HPV Vaccines Aged Out No longer eligi [...] this topic Medical Devices Implanted Type Area Business Dean Device Identifier Shelf Expiration Date Model / Serial / Lot Stent Ureteral Double Pigtail Pos 6fr 24cm - [id number] - [id number] Implanted:Qty: 1 on 04/11/2024 by Harvey Macdonald MD at [facility] Stent Right: Ureter [id number] 01/02/2026 [id number] / [id number] Loop Recorder-2016 Implanted:04/28 (Quantity not on file) Chest Medtronic [id number] / / Procedures Procedure Name Priority [...] Reactive Non Reactive 04/10/2024 7:25 PM EDT [facility] Comment:Screening for HIV 1 & 2 antibodies, and P24 antigen is NONREACTIVE. No confirmatory testing is required. Blood Venous blood specimen / Unknown Venipuncture / Unknown 04/10/2024 6:11 PM EDT 04/10/2024 6:27 PM EDT us Susan Mcclure MD LAB BLOOD ORDERABLES Final Re sult Performing Organization Address [facility] Co de Phone Number HEALTHCARE LAB [address] [place] [address] * Hepatitis C Antibody - ED (04/10/2024 6:11 PM EDT) Hepatitis C Antibody Negative Negative 04/10/2024 7:24 PM EDT [facility] Blood Venous blood specimen / Unknown Venipuncture / Unknown 04/10/2024 6:11 PM EDT 04/10/2024 6:26 PM EDT Susan Mcclure MD LAB BLOOD ORDERABLES Final Re sult Performing Organization Address City/[facility] Co de Phone Number [facility] [address] [place] [address] * (ABNORMAL) Hemoglobin A1c (04/10/2024 6:11 PM EDT) Hemoglobin A1c 6.3(H) <5.7 % 04/10/2024 9:31 PM EDT [facility] Blood Venous blood specimen / Unknown [...] Adults <6.0% Children and Adolescents <7.5% Source: [place] [employer]. Standards of medical care in diabetes,2017. Diabetes Care.2017:40 (suppl 1):S1-S135. HbA1c assay performed by an ion-exchange chromatography method that is certified traceable to the DCCT. us Joselito Berrios MD LAB BLOOD ORDERABLES Final Re sult [facility] [address] [place] [address] from Last 3 Months or Most Recently Relevant to Health Maintenance Additional Health Concerns Infection Onset Date Last Indicated ESBL Comment:+ 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 Source: [facility]. This patient will require contact precautions indefinitely. 04/01/2024 Insurance [employer] MEDICAID Advance Directives * Full Code (Latest Code Status on File) Date Activated Date Inactivated Comments 04/11/2024 10:12 AM 04/12/2024 3:22 PM Question Answer Comments Patient has decision-making capacity? Yes Care Teams Buncher Operator Relationship Specialty Start Date End Date Juarez Griffin MD [address] [place] [address] PCP - General 03/10/21 Karen Naqvi DO [address] [facility] [address] [place] [address] Referring Physician Obstetrics and Gynecology 09/23/24
--- OUTSIDE RECORDS SUMMARY | 2025-04-29 14:50 | XMS_ITS | Referral Summary ---
Author Organization [employer] ([place], [place], [place], [place]) Address [address] [place] [address] Care Team Providers Care Glove Cuffer Name Role Phone Juarez Griffin MD Primary Care Provider [phone] Allergies Active Allergy Reactions Criticality Noted Date [...] Do you speak a language other than [facility]? No 12/27/2023 Do you want help [...] on file Medical Devices Implanted Type Area Evp Marketing Device Identifier Shelf Expiration Date Model / Serial / Lot Loop Recorder LOOP RECORDER Left: Chest Insurance [facility] [place] [id number] [facility] Advance Directives For more information, please contact: [phone] * Full Code (Latest Code Status on File) Date Activated Date Inactivated Comments 12/27/2023 3:21 AM 12/30/2023 2:53 PM -Attempt Resus citation if person has no pulse and is not breathing. -If no pulse or not breathing attempt CPR/CODE. -Call Rapid Response if patient is in distress. Care Teams Glove Cuffer Relationship Specialty Start Date End Date Juarez Griffin MD [address] [place] [address] [place] [address] PCP - General General Internal Medicine 12/30/23
--- OUTSIDE RECORDS SUMMARY | 2025-04-29 14:50 | XMS_ITS | Continuity of Care Document ---
Author Organization [facility] & [facility] Infectious Disease -105 Address [address] [place] [address] Care Team Providers Care Bone Process Operator Name Role Phone ZAHRAA BENAVIDES Primary Care Provider [phone] Assessment No assessment recorded. Plan of Treatment [...] and Address Organization Details Recorded Time Syncope 485070140 Active 2021 Malina Hernandez DO [address] [place], [address] [facility] & [place] 2 15:33:04 Hypersomnia 04126972 Active 2021 Malina Hernandez DO [address] [facility] [address] [facility] & [place] 15:34:08 Problem Notes None recorded. Procedures Surgical History Date Name Laterality Status Provider Name and Address Organization Details Recorded Time 09/25/20 23 Cystoscopy-Female completed Silvio Valdez MD [address] , [place], [address], [facility] & [place] 09/25/2023 15:26:11 04/04/20 22 Date of Last Pap Smear completed Vandana ELLER - [facility] & [place] 10/03/2022 14:31:43 10/28/19 22 Radio Electronics Officer Surgery completed Vandana ELLER - [facility] - [place] & [place] 10/03/2022 14:45:45 10/28/19 17 Cholecystectomy completed Vandana ELLER - [facility] - [place] & [place] 10/03/2022 14:32:27 10/28/19 14 Other completed Vandana ELLER - [facility] - [place] & [place] 10/03/2022 14:44:51 cardiac catheterization completed Vandana ELLER - [facility] - [place] & [place] 10/03/2022 14:46:31 strabismus surgery completed Vandana ELLER - [facility] & [place] 10/03/2022 14:55:15 Imaging Results None recorded. Procedure Notes None recorded. Medical Equipment None Reported. Allergies Allergen ID Allergen Name Allergen Category Reaction Reaction Severity Criticality Documentation Date Start Date Code Code System Note Provider Name and Address Organization Details Recorded Time 62747 aspirin medicatio n chest pain wheezing moderate severe Not available 10/02/2022 1191 RxNorm Vandana catherine, [place] - [facility] & [place] 2 09:22:42 58057 Bactrim medicatio n arthralgi a (joint pain) muscle cramps severe severe Not available 10/02/2022 61349 9 RxNorm Vandana catherine, [place] - [facility] & [place] 2 09:22:49 18562 insect venom environme nt confusion cough dizziness fever flushing headache wheezing moderate moderate moderate mild moderate moderate moderate Not available 10/02/2022 52822 UNK Vandana catherine, [place] - [facility] & [place] 2 09:23:13 95978 Pneumococ georges vaccine Not available anaphylax is chest pain facial swelling nausea rash wheezing moderate moderate moderate moderate moderate moderate Not available 10/02/2022 54904 7 RxNorm Vandana Steven null, [place] - [facility] & [place] 2 09:23:25 01055 rosuvasta tin medicatio n eye swelling facial swelling respirato ry distress moderate moderate moderate Not available 10/02/2022 69938 2 RxNorm Vandana RAFITA Fischer - [facility] - [place] & [place] 2 09:23:35 Medications Name Sig [...] % 60 /min 97.7 [degF] 49.6 kg/m2 561678. 86 g 119/79 mm[Hg] Bianca Smith [facility] & [place] 5 13:31:54 Social History Question Answer Notes LastModified by Organizat ion Details LastModified Time Tobacco Smoking Status [facility] [place] 10/03/2022 14:32:09 Do You Have An Advance Directive? No Information not available 10/03/2022 Are You Blind Or Do You Have Difficulty Seeing? No Information not available 10/03/2022 What Was The Date Of Your Most Recent Tobacco Screening? 09/17/2022 Information not available 10/03/2022 Do You Have Any Pets? Yes [email or web address] Information not available 09/25/2023 Are You Passively Exposed To Smoke? No Information not available 10/03/2022 Are You Currently In School? No [employer] [email or web address] Information not available 09/25/2023 Sex: Female Functional Status Question Answer Note LastModified by Organizat ion Details LastModified Time Do you use any illicit or recreational drugs? No Information not available 10/03/2022 What is your level of alcohol consumption? 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 Occasional Information not available 10/03/2022 Mental Status Question Answer Note LastModified by Organization D etails LastModified Time Do you feel stressed (tense, restless, nervous, or anxious, or unable to sleep at night)? [id number] Information not available 10/03/2022 Family History Relationship [...] SNOMED-CT Code Diagnosis ICD10 Code Diagnosis Note [id number] [facility] [address] 02/23/2025 13:48:33 02/23/2025 14:17:11 Recurrent urinary tract infection 455937040 N39.0 Will check lab work. Will send urine off for a culture. Will see patient back in 1 week. 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 Patient will follow up in 2 weeks. Call the office if anything persists or worsens. 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 Urine culture results received. Patient denies any fever. She is scheduled to have surgery to remove her stone on . Marilou David, INSPECT[employer] [address], [place], [address], [place] - [facility] - [place] & [place] 03/02/2025 13:35:40 OBGyn Episode No OBEpisode recorded.
--- OUTSIDE RECORDS SUMMARY | 2025-04-29 14:50 | XMS_ITS | Clinical Summary ---
Author Organization [employer] ([place], [place], [place], [place]) Address [address] [place] [address] Care Team Providers Care Access Coordinator Name Role Phone Juarez Griffin MD Primary Care Provider [phone] Allergies Active Allergy Reactions Criticality Noted Date [...] Do you speak a language other than [place]ian at [facility]? No 12/27/2023 Do you want help with [...] Completed 10/30/2023, Medical Devices Implanted Type Area Director Strategic Account Management Device Identifier Shelf Expiration Date Model / Serial / Lot Loop Recorder LOOP RECORDER Left: Chest Insurance [employer] [facility] [place] OF [place] Advance Directives For more information, please contact: [phone] * Full Code (Latest Code Status on File) Date Activated Date Inactivated Comments 12/27/2023 3:21 AM 12/30/2023 2:53 PM -Attempt Resus citation if person has no pulse and is not breathing. -If no pulse or not breathing attempt CPR/CODE. -Call Rapid Response if patient is in distress. Care Teams Access Coordinator Relationship Specialty Start Date End Date Juarez Griffin MD [address] [place] [address] [place] [address] PCP - General General Internal Medicine 12/30/23
== END 2025-04-29 15:27 | disposition home or self-care (01) ==
LOC: INF 14:47
PROVIDERS: PCP Internal Medicine; Visit Provider Internal Medicine
DX: Z45.2 Encounter for adjustment and management of vascular access device (principal)
CPT/HCPCS: G0463

== ENCOUNTER 2025-05-07 15:52 | Outpatient (CLI) | payer OTHER, SELFPAY ==
--- OUTSIDE RECORDS SUMMARY | 2025-05-07 15:54 | XMS_ITS | Clinical Summary ---
Author Organization [facility] Address [address] [place] [address] Phone Care Team Providers Care Waste Water Treatment Plant Operator Name Role Phone Zofia Perkins Unavailable Unavailable Conditions or Problems Problem Name Problem Code Onset Date Status Entry Date Provider Comment Standard Description Annotate Acute Pyelonephritis 51722706 (SNOMED CT) 01/07 Active 01/07 Malina Ames Acute pyelonephritis Obstructive uropathy with infection N13.6 (ICD-10-C M) 01/07 Active 01/07 Malina Ames Pyonephrosis Neutrophilic leukemoid reaction D72.823 (ICD-10-C M) 01/07 Active 01/07 Malina Ames Leukemoid reaction COPD 37781893 (SNOMED CT) 01/07 Active 01/07 Malina Ames Chronic obstructive pulmonary disease Morbid obesity due to excess calories E66.01 (ICD-10-C M) 01/07 Active 01/07 Malina Ames Morbid (severe) obesity due to excess calories DM Type II E11.9 (ICD-10-C M) 01/07 Active 01/07 Malina Ames Type 2 diabetes mellitus without complications Benign hypertensive heart disease with chronic diastolic heart failure (I50.32) 59778068 (SNOMED CT) 01/07 Active 01/07 Malina Ames Benign hypertension Medications Medication Instructions Start Date Stop Date Generic Name [facility] Provider FOSFOMYCIN TROMETHAMINE 3 GM PACK Take 1 packet by mouth as directed take 1 packet every 3-4 days (2 times weekly) fosfomycin tromethamine 58802401922 Calvin Villarreal MD PREDNISONE 20 MG TABS prednisone 36912394805 Milly Jabierbrianne VITAMIN C 500 MG CAPS twice a day ascorbic acid (vitamin c) 85628156611 Milly Mosquera HIPREX 1 GM TABS Take 1 tablet by mouth twice a day 02/18 methenamine hippurate 01274309911 Calvin Villarreal MD INDOMETHACIN 50 MG CAPS Take 1 capsule by mouth three times a day indomethacin 72320957078 Linda De Leon SUCRALFATE 1 GM TABS Take 1 tablet by mouth four times a day sucralfate 76265442702 Linda De Leon BUMETANIDE 2 MG TABS Take 1 tablet by mouth twice a day bumetanide 47462565667 Linda De Leon PRAVASTATIN SODIUM 10 MG TABS Take 1 tablet by mouth every night pravastatin 77487257412 Linda DeL eon ENTRESTO 24-26 MG TABS Take 1 tablet by mouth twice a day sacubitril-valsa rtan 85390156717 Linda De Leon VENTOLIN HFA 108 (90 Base) MCG/ACT AERS Inhale 2 puff by mouth every four to six hours as needed albuterol sulfate 78416028058 Linda De Leon ADVAIR DISKUS 250-50 MCG/ACT AEPB Inhale 1 puff twice a day fluticasone propion-salmeter ol 12150484394 Linda De Leon OMEPRAZOLE 20 MG CPDR Take 1 capsule by mouth once a day omeprazole 24677729809 Linda De Leon METFORMIN HCL 500 MG TABS Take 1 tablet by mouth twice a day metformin 78694925134 Linda De Leon FARXIGA 10 MG TABS Take 10 mg by mouth once a day dapagliflozin propanediol 56657862980 Linda De Leon IBUPROFEN (IBUPROFEN) 800 MG TABS Take 1 tablet by mouth every six hours as needed IBUPROFEN Linda De Leon TIZANIDINE HCL 4 MG TABS Take 1 tablet by mouth as needed tizanidine 49537142525 Linda De Leon TRAMADOL HCL 50 MG TABS every twelve hours tramadol 03071457198 Linda De Leon NITROGLYCERIN 0.[address] 1 tablet under tongue as needed nitroglycerin 12208845153 Linda Moises ONDANSETRON HCL 4 MG TABS Take 1 tablet by mouth every eight hours as needed ondansetron hcl 52929260381 Linda Moises SPIRONOLACTONE 50 MG TABS Take 1 tablet by mouth once a day spironolactone 80712735431 Linda De Leon SITagliptin (JANUVIA) 25 MG tablet Take 1 tablet by mouth once a day JANOLIVER De Leon NEBIVOLOL HCL 5 MG TABS Take 1 tablet by mouth once a day nebivolol 79337094513 Jazieltyree De Leon GLYXAMBI 10-5 MG TABS Take 1 tablet by mouth once a day empagliflozin-li nagliptin 61849526244 Linda De Leon VENTOLIN HFA 108 (90 Base) MCG/ACT AERS INHALE TWO PUFFS BY MOUTH EVERY 4 TO 6 HOURS NEEDED 01/19 albuterol sulfate 65686412854 QIE qieuser TRAMADOL HCL 50 MG TABS Every 12 (Twelve) Hours. 01/19 tramadol 73430579724 QIE qieuser TIZANIDINE HCL 4 MG TABS Take 1 tablet by mouth As Needed. 01/19 tizanidine 91665792997 QIE qieuser SUCRALFATE 1 GM TABS Take 1 tablet by mouth 4 (Four) Times a Day. 01/19 sucralfate 66745844092 QIE qieuser SPIRONOLACTONE 50 MG TABS TAKE ONE TABLET BY MOUTH EVERY DAY 01/19 spironolactone 90681167444 QIE qieuser SITagliptin (JANUVIA) 25 MG tablet Take 1 tablet by mouth Daily. 01/19 JANUVIA QIE qieuser PRAVASTATIN SODIUM 10 MG TABS TAKE ONE TABLET BY MOUTH EVERY DAY AT BEDTIME 01/19 pravastatin 62295925624 QIE qieuser ONDANSETRON HCL 4 MG TABS Take 1 tablet by mouth Every 8 (Eight) Hours As Needed. 04/27 ondansetron hcl 55985118207 QIE qieuser OMEPRAZOLE 20 MG CPDR TAKE ONE CAPSULE BY MOUTH EVERY DAY 04/27 omeprazole 21122806656 QIE qieuser O2 (OXYGEN) 2 L by Alternating Nares route Every Night. OXYGEN QIE qieuser NITROGLYCERIN 0.[address] 1 tablet under the tongue As Needed for Chest Pain. 01/19 nitroglycerin 42749226871 QIE qieuser NEBIVOLOL HCL 5 MG TABS TAKE ONE TABLET BY MOUTH EVERY DAY 01/19 nebivolol 89787612845 QIE qieuser METFORMIN HCL 500 MG TABS Take 1 tablet by mouth 2 (Two) Times a Day. 01/19 metformin 82014244980 QIE qieuser IPRATROPIUM-ALBUT MIK 0.5-2.5 (3) MG/3ML SOLN ipratropium-albu terol 69142903427 QIE qieuser INDOMETHACIN 50 MG CAPS Take 1 capsule by mouth 3 (Three) Times a Day With Meals. 01/19 indomethacin 73808568832 QIE qieuser IBUPROFEN (IBUPROFEN) 800 MG TABS Take 1 tablet by mouth Every 6 (Six) Hours As Needed. 01/19 IBUPROFEN QIE qieuser ENTRESTO 24-26 MG TABS TAKE ONE TABLET BY MOUTH TWICE DAILY 01/19 sacubitril-valsa rtan 38941652221 QIE qieuser GLYXAMBI 10-5 MG TABS Take 1 tablet by mouth Daily. 01/19 empagliflozin-li nagliptin 84150916385 QIE qieuser FARXIGA 10 MG TABS Take 10 mg by mouth Daily. 01/19 dapagliflozin propanediol 25287172849 QIE qieuser BUMETANIDE 2 MG TABS TAKE ONE TABLET BY MOUTH TWICE DAILY 01/19 bumetanide 62820372943 QIE qieuser ADVAIR DISKUS 250-50 MCG/ACT AEPB Inhale 1 puff 2 (Two) Times a Day. 01/19 fluticasone propion-salmeter ol 71813273551 QIE qieuser CEFUROXIME AXETIL 500 MG TABS 1 tablet by mouth twice a day cefuroxime axetil 03558409373 Calvin Villarreal MD Medications Administered No information [...] smoking status SMOK STATUS Never smoker Toba new accounts representative smoking status MEDS REVIEW Done Documenta [...]
--- OUTSIDE RECORDS SUMMARY | 2025-05-07 15:55 | XMS_ITS | Data Portability ---
Author Organization [facility] [place] [facility] Address [address] [place] [address] Assessment No assessment recorded. Plan of Treatment Reminders Order Date Submit Date Provider Last Modified By Organization Details Last Modified Time Details Appointments None recorded. Lab None recorded. Referral aquatic therapy referral 2017 018 [email or web address] 2 Not available 8 11:14:18 cognitive behavioral therapy referral 2017 018 2 [place] [facility], [address], [facility] [address], [place], [address], 8 11:14:19 occupationa l therapist referral 2017 018 [email or web address] 2 Not available 8 11:14:17 Procedures None recorded. Surgeries None recorded. Imaging None recorded. Medication Orders None recorded. Patient TargetsNo targets recorded. Patient Instructions Encounter Date Encounter Id Patient Instructions Last Modified By Organization Details Last Modified Time 08/13/2018 [id number] learning about healthy weight Not available 08/13/2018 [...] Name and Address Organization Details Recorded Time 706982 aspirin medicatio n Not available Not available Not available 08/13/2018 [id number] RxNorm Melinda Hudson [facility] 8 10:01:54 Medications Name Sig [...] Address Organization Details Last Updated DateTime 8 337657. 12 g 48.2 kg/m2 160.02 cm 18 /min 61 /min 132/96 mm[Hg] Melinda Hudson [facility] 8 10:06:40 Social History Question Answer Notes LastModified by Organizat ion Details LastModified Time Tobacco Smoking Status Never Smoker Melinda Hudson [facility] 08/13/2018 10:02:03 What Was The Date Of Your Most Recent Tobacco Screening? 08/13/2018 Information n ot available 12/15/2019 Sex: Unknown Functional Status None recorded. Mental Status None recorded. Family History Relationship Description Onset Age of this Age Resolved Age Notes LastModified by Organization Details LastModified Time Father No current problems or disability [email or web address] Not available 08/13 10:02:01 Mother No current problems or disability [email or web address] Not available 08/13 10:02:01 Medical History Condition [...] SNOMED-CT Code Diagnosis ICD10 Code Diagnosis Note [id number] CLIFF BARBER MD RHEUMATOL OGY [address] [place] [address] 08/13/2018 09:13:44 08/13/2018 10:48:47 Pain of multiple joints 94710837 M25.50 she has clinical features of Dixon OA. no features of an inflammato ry arthritis noted. no features of rheumatoid noted. 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 would suggest to avoid steroids and start OT as stated below. she can RTC with me as prn. 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 Health Concerns Section Related Observation LastModified by Organization Detai ls LastModified Time None Recorded Concern Status LastModified by Organization Details LastModified Time None Recorded Advance Directives Directive None Recorded Payers Insurance Date Sequence Insurance Name Policy Number Policy Valdivia Covered Member ID Valdivia Member ID Guarantor Name 02/03/2024 1 [facility] [id number] [facility] 01/24/2024 1 [place]FS/TRADITIO NAL [facility] [id number] [facility] 02/04/2024 1 [facility] [id number] [facility] 01/31/2024 1 [facility] [id number] Lissy [facility] [id number] L[facility] Notes Date Note Type Note Provider Name [...] and a normal TSH. CLIFF BARBER MD [facility] [place], [address], [facility] 08/13/2018 17:00:47 OBGyn Episode No OBEpisode recorded.
--- OUTSIDE RECORDS SUMMARY | 2025-05-07 15:55 | XMS_ITS | Clinical Summary ---
Author Organization [facility] Address [address] [place] [address] Care Team Providers Care Senior Wind Energy Consultant Name Role Phone Juarez Griffin MD Primary Care Provider [phone] Karen Naqvi DO Unavailable [phone] Allergies Active Allergy Reactions Criticality Noted Date [...] Description 03/12/2025 Orders Only External Location [address] [place] [id number] Provider, External from Last 3 Months Immunizations [...] drink first t yue in the morning (EYE-CASE ASSISTANT) to steady your nerves or to get [...] PPSV23) 11/01/2021 09/06/2021 [facility]-Breast Cancer Screening 2023 [id number] Vaccine ( - season) 2024 10/07/2022, 08/21/2021 [...] this topic Medical Devices Implanted Type Area Ammonia Print Operator Device Identifier Shelf Expiration Date Model / Serial / Lot Stent Ureteral Double Pigtail Pos 6fr 24cm - [id number] - [id number] Implanted:Qty: 1 on 04/11/2024 by Harvey Macdonald MD at [facility] Stent Right: U[employer]-[id number] 01/02/2026 [id number] / [id number] Loop Recorder-2016 Implanted:04/28 (Quantity not on file) [...] ORDERABLES Final Re sult Performing Organization Address [facility] Co de Phone Number [facility] [address] [place] [address] * Hepatitis C Antibody - ED (04/10/2024 6:11 PM EDT) Hepatitis C Antibody Negative Negative 04/10/2024 7:24 PM EDT [facility] Blood Venous blood specimen / Unknown Venipuncture / Unknown 04/10/2024 6:11 PM EDT 04/10/2024 6:26 PM EDT Susan Mcclure MD LAB BLOOD ORDERABLES Final Re sult Performing Organization Address [facility] Co de Phone Number [facility] [address] [place] [address] * (ABNORMAL) Hemoglobin A1c (04/10/2024 6:11 PM EDT) Hemoglobin A1c 6.3(H) <5.7 % 04/10/2024 9:31 PM EDT [facility] Blood Venous blood specimen / Unknown [...] Adults <6.0% Children and Adolescents <7.5% Source: [place] [employer]. Standards of medical care in diabetes,2017. Diabetes Care.2017:40 (suppl 1):S1-S135. HbA1c assay performed by an ion-exchange chromatography method that is certified traceable to the DCCT. 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 Source: [facility]. This patient will require contact precautions indefinitely. 04/01/2024 Insurance [employer] MEDICAID Advance Directives * Full Code (Latest Code Status on File) Date Activated Date Inactivated Comments 04/11/2024 10:12 AM 04/12/2024 3:22 PM Question Answer Comments Patient has decision-making capacity? Yes Care Teams Senior Wind Energy Consultant Relationship Specialty Start Date End Date Juarez Griffin MD [address] [place] [address] PCP - General 03/10/21 Karen Naqvi DO [address] [place] [address] Referring Physician Obstetrics and Gynecology 09/23/24
--- OUTSIDE RECORDS SUMMARY | 2025-05-07 15:55 | XMS_ITS | Clinical Summary ---
Author Organization [employer] ([place], [place], [place], [place]) Address [address] [place] [address] Care Team Providers Care Cake Inspector Name Role Phone Juarez Griffin MD Primary Care Provider [phone] Allergies Active Allergy Reactions Criticality Noted Date [...] Do you speak a language other than Khmer at [facility]? No 12/27/2023 Do you want help [...] and Screening (12+) 12/26/2024 12/27/2023 Influenza Vaccine (#1) 2025 Shingles Vaccine (Zoster) Completed 10/30/2023, Medical Devices Implanted Type Area Software Quality Test Engineer Device Identifier Shelf Expiration Date Model / Serial / Lot Loop Recorder LOOP RECORDER Left: Chest Insurance [employer] [facility] [place] Advance Directives For more information, please contact: [phone] * Full Code (Latest Code Status on File) Date Activated Date Inactivated Comments 12/27/2023 3:21 AM 12/30/2023 2:53 PM -Attempt Resus citation if person has no pulse and is not breathing. -If no pulse or not breathing attempt CPR/CODE. -Call Rapid Response if patient is in distress. Care Teams Cake Inspector Relationship Specialty Start Date End Date Juarez Griffin MD [address] [place] [address] [place] [address] PCP - General General Internal Medicine 12/30/23
--- OUTSIDE RECORDS SUMMARY | 2025-05-07 15:55 | XMS_ITS | Data Portability ---
Author Organization [place] Alejandro ADMIN Address [address] [place] [id number] Care Team Providers Care Bookkeeper Assistant Name Role Phone ZAHRAA BENAVIDES Primary Care Provider [phone] Assessment Encounter Date Assessment Date Assessment LastModified by Organization Details LastModified Time 08/07/2023 08/07/[address] scan images onto our system. Will review to determine the degree of stone burden bilaterally in the kidneys. Will also plan cystoscopy and pelvic exam in the office in the near future. [email or web address] Not available 08/07/2023 15:34:46 09/25/2023 09/25/2023 I [...] in 6 months with KUB and UA. [email or web address] Not available 09/25/2023 15:29:09 Plan of Treatment Reminders Order Date Submit Date Provider Last Modified By Organization Details Last Modified Time Details Appointments None recorded. Lab urinalysis, dipstick 2024 025 [email or web address] [facility] -105, [address], [place], [address], 5 14:18:52 CBC w/ diff 2024 025 [facility] (Registration ), [address], [place], [address], 5 16:11:55 CMP, serum or plasma 2024 025 [facility] (Registration ), [address], [place], [address], 5 15:39:03 ESR (erythrocyt e sedimentati on rate), blood [address] (Registration ), [address] [facility], [place], [address], 5 08:54:47 C-reactive protein, quantitativ e, serum or plasma [address] (Registration ), [address], [place], [address], 5 08:54:48 culture, urine 2024 025 LAC DU FLAMBEAU [facility], [address], [address], [place], [address], 5 19:09:52 urinalysis, dipstick 2022 023 [email or web address] [facility], [address] [facility], [address], [place], [address], 3 16:08:29 Referral None recorded. Procedures None [...] at: [facility] n [address] [place] [address] 1268 Lab Dire[facility] tor: Los carson PhD, Phone : [phone] Not Available [facility] ([facility]) [address] [place], [address], 04/03/2023 10:13:10 04/02/20 23 04/03/2023 FSH FSH, serum 5.4 mIU/m L Adult Femal e: Folli cular phase 3.5 - 12.5 Ovula tion phase 4.7 - 21.5 Lutea l phase 1.7 - 7.7 Postm enopa usal 25.8 - 134.8 Perfo rmed at: [facility] n [address] [place] [address] 1265 Lab [facility] tor: Los carson PhD, Phone : [phone] Not Available [facility] ([facility]) [address] [facility], [place], [address], 04/03/2023 10:14:16 08/07/20 23 08/07/2023 urina lysis , dipst ick Leukocytes (reference range) trace Not Available [facility] [address] [facility] [address] [place] [address], [address], 08/07/2023 15:15:15 08/07/20 23 08/07/2023 urina lysis , dipst ick Nitrite (reference range:) negati ve Not Available [facility] [address] [facility] [address] [place] [address], [address], 08/07/2023 15:15:15 08/07/20 23 08/07/2023 urina lysis , dipst ick Urobilinogen (reference range) 0.2 Not Available [facility] [address] [place] [address] [address], [place], [address], 08/07/2023 15:15:15 08/07/20 23 08/07/2023 urina lysis , dipst ick Protein (reference range) negati ve Not Available [facility] [address], [place], [address], 08/07/2023 15:15:15 08/07/2008/07/2023 urina lysis , dipst ick pH (reference range 5-8.5) 6.0 Not Available [facility] [address], [place], [address], 08/07/2023 15:15:15 08/07/2008/07/2023 urina lysis , dipst ick Blood (reference range:) small Not Available [address], [place], [address], 08/07/2023 15:15:15 08/07/20 23 08/07/2023 urina lysis , dipst ick Specific [place] (reference range) 1.015 Not Available [address], [place], [address], 08/07/2023 15:15:15 08/07/20 23 08/07/2023 urina lysis , dipst ick Ketone (reference range) negati ve Not Available [address], [place], [address], 08/07/2023 15:15:15 08/07/20 23 08/07/2023 urina lysis , dipst ick Bilirubin (reference range) negati ve Not Available [address], [place], [address], 08/07/2023 15:15:15 08/07/20 23 08/07/2023 urina lysis , dipst ick Glucose (reference range) 250 Not Available [facility] [address] [facility] [address], [place], [address], 08/07/2023 15:15:15 08/07/20 23 08/07/2023 urina lysis , dipst ick Color (reference range: yellow-brown ) Yellow Not Available [facility] [address] [facility] [address], [place], [address], 08/07/2023 15:15:15 02/24/20 25 02/23/2025 CBC AUTO W DIFF WBC 11.3 K/uL 4.0-10 .5 high Not Available [facility] ([facility]) [address], [place], [address], 02/23/2025 15:02:28 02/24/20 25 02/23/2025 CBC AUTO W DIFF RBC 5.7 M/mm3 4.2-6. 4 Not Available [facility] ([facility]) [address] , [place], [address], 02/23/2025 15:02:28 02/24/20 25 02/23/2025 CBC AUTO W DIFF HGB 15.8 gm/dL 12.5-1 6.0 Not Available [facility] ([facility]) [address] , [place], [address], 02/23/2025 15:02:28 02/24/20 25 02/23/2025 CBC AUTO W DIFF HCT 48.8 % 37.0-4 7.0 high Not Available [facility] ([facility]) [address], [place], [address], 02/23/2025 15:02:28 02/24/20 25 02/23/2025 CBC AUTO W DIFF MCV 86.4 fL 78-100 Not Available [facility] ([facility]) [address], [place], [address], 02/23/2025 15:02:28 02/24/20 25 02/23/2025 CBC AUTO W DIFF MCH 28.0 pg 27-31 Not Available [facility] ([facility]) [address], [place], [address], 02/23/2025 15:02:28 02/24/20 25 02/23/2025 CBC AUTO W DIFF MCHC 32.4 g/dL 32-36 Not Available [facility] ([facility]) [address], [place], [address], 02/23/2025 15:02:28 02/24/20 25 02/23/2025 CBC AUTO W DIFF RDW 13.7 % 11.5-1 4.0 Not Available [facility] ([facility]) [address], [place], [address], 02/23/2025 15:02:28 02/24/20 25 02/23/2025 CBC AUTO W DIFF platelet count 380 K/uL 150-45 0 Not Available [facility] ([facility]) [address] , [place], [address], 02/23/2025 15:02:28 02/24/20 25 02/23/2025 CBC AUTO W DIFF MPV 10.3 fL 6-9.5 high Not Available [facility] ([facility]) [address], [place], [address], 02/23/2025 15:02:28 02/24/20 25 02/23/2025 CBC AUTO W DIFF neutrophil% 66.5 % 43-65 high Not Available [facility] ([facility]) [address], [place], [address], 02/23/2025 15:02:28 02/24/20 25 02/23/2025 CBC AUTO W DIFF lymphocyte% 24.3 % 20.5-4 5.5 Not Available [facility] ([facility]) [address], [place], [address], 02/23/2025 15:02:28 02/24/20 25 02/23/2025 CBC AUTO W DIFF monocyte% 6.0 % 5.5-11 .7 Not Available [facility] ([facility]) [address] [facility], [place], [address], 02/23/2025 15:02:28 02/24/20 25 02/23/2025 CBC AUTO W DIFF eosinophil% 2.3 % 0.9-2. 9 Not Available [facility] ([facility]) [address] [place], [address], 02/23/2025 15:02:28 02/24/20 25 02/23/2025 CBC AUTO W DIFF basophil% 0.6 % 0.2-1. 0 Not Available [facility] ([facility]) [address] [place], [address], 02/23/2025 15:02:28 02/24/20 25 02/23/2025 CBC AUTO W DIFF immature granulocytes % 0.3 % 0.0-0. 8 Not Available [facility] ([facility]) [address] [place], [address], 02/23/2025 15:02:28 02/24/20 25 02/23/2025 CBC AUTO W DIFF nucleated red blood cells % 0.0 % Not Available [facility] ([facility]) [address] [place], [address], 02/23/2025 15:02:28 02/24/20 25 02/23/2025 CBC AUTO W DIFF neutrophil# 7.5 K/uL 2.2-4. 8 high Not Available [facility] ([facility]) [address], [place], [address], 02/23/2025 15:02:28 02/24/20 25 02/23/2025 CBC AUTO W DIFF lymphocyte# 2.7 cell/ mcL 1.3-2. 9 Not Available [facility] ([facility]) [address], [place], [address], 02/23/2025 15:02:28 02/24/20 25 02/23/2025 CBC AUTO W DIFF monocyte# 0.7 cell/ mcL 0.3-0. 8 Not Available [facility] ([facility]) [address], [place], [address], 02/23/2025 15:02:28 02/24/20 25 02/23/2025 CBC AUTO W DIFF eosinophil# 0.3 cell/ mcL 0-0.2 high Not Available [facility] ([facility]) [address], [place], [address], 02/23/2025 15:02:28 02/24/20 25 02/23/2025 CBC AUTO W DIFF basophil# 0.1 cell/ mcL 0.0-1. 0 Not Available [facility] ([facility]) [address], [place], [address], 02/23/2025 15:02:28 02/24/20 25 02/23/2025 CBC AUTO W DIFF immature gramulocytes # 0.03 K/uL Not Available [facility] ([facility]) [address], [place], [address], 02/23/2025 15:02:28 02/24/20 25 02/23/2025 CBC AUTO W DIFF nucleated red blood cells # 0.00 K/uL Not Available [facility] ([facility]) [address], [place], [address], 02/23/2025 15:02:28 02/24/20 25 02/23/2025 CBC AUTO W DIFF manual differential NO Not Available [facility] ([facility]) [address] , [place], [address], 02/23/2025 15:02:28 02/24/20 25 02/23/2025 COMP METAB OLIC PANEL sodium 138 mmol/ L 136-14 5 Not Available [facility] ([facility]) [address] , [place], [address], 02/23/2025 15:39:03 02/24/20 25 02/23/2025 COMP METAB OLIC PANEL potassium 3.7 mmol/ L 3.6-5. 0 Not Available [facility] ([facility]) [address] , [place], [address], 02/23/2025 15:39:03 02/24/20 25 02/23/2025 COMP METAB OLIC PANEL chloride 98 mmol/ L 98-107 Not Available [facility] ([facility]) [address] , [place], [address], 02/23/2025 15:39:03 02/24/20 25 02/23/2025 COMP METAB OLIC PANEL carbon dioxide 26.8 mmol/ L 21.0-3 2.0 Not Available [facility] ([facility]) [address] , [place], [address], 02/23/2025 15:39:03 02/24/20 25 02/23/2025 COMP METAB OLIC PANEL anion gap 16.9 Not Available [facility] ([facility]) [address] , [place], [address], 02/23/2025 15:39:03 02/24/20 25 02/23/2025 COMP METAB OLIC PANEL glucose 200 mg/dL 70-120 high Not Available [facility] ([facility]) [address], [place], [address], 02/23/2025 15:39:03 02/24/20 25 02/23/2025 COMP METAB OLIC PANEL BUN 12 mg/dL 7-18 Not Available [facility] ([facility]) [address], [place], [address], 02/23/2025 15:39:03 02/24/20 25 02/23/2025 COMP METAB OLIC PANEL creatinine 1.1 mg/dL 0.6-1. 3 Not Available [facility] ([facility]) [address], [place], [address], 02/23/2025 15:39:03 02/24/20 25 02/23/2025 COMP METAB [...] brown ing kiney funct ion. Not Available [facility] ([facility]) [address], [place], [address], 02/23/2025 15:39:03 02/24/20 25 02/23/2025 COMP METAB OLIC PANEL osmolality (calculated) 293 mOsm/ kg 275-30 1 OSMOL ALITY IS A CALCU LATIO N UTILI ZING THE SERUM /PLAS MA SODIU M, GLUCO SE AND UREA NITRO GEN (BUN) LEVEL S. FOR THE MOST ACCUR ATE RESUL T A MEASU RED SERUM OSMOL ALITY IS SUGGE STED. Not Available [facility] ([facility]) [address], [place], [address], 02/23/2025 15:39:03 02/24/20 25 02/23/2025 COMP METAB OLIC PANEL total protein 8.1 g/dL 6.4-8. 2 Not Available [facility] ([facility]) [address] , [place], [address], 02/23/2025 15:39:03 02/24/20 25 02/23/2025 COMP METAB OLIC PANEL albumin 3.6 g/dL 3.4-5. 0 Not Available [facility] ([facility]) [address] , [place], [address], 02/23/2025 15:39:03 02/24/20 25 02/23/2025 COMP METAB OLIC PANEL globulin 4.5 Not Available [facility] ([facility]) [address], [place], [address], 02/23/2025 15:39:03 02/24/20 25 02/23/2025 COMP METAB OLIC PANEL alb/glob ratio 0.8 0.7-2 Not Available [facility] ([facility]) [address], [place], [address], 02/23/2025 15:39:03 02/24/20 25 02/23/2025 COMP METAB OLIC PANEL calcium 10.2 mg/dL 8.5-10 .5 Not Available [facility] ([facility]) [address], [place], [address], 02/23/2025 15:39:03 02/24/20 25 02/23/2025 COMP METAB OLIC PANEL bilirubin total 0.60 mg/dL 0.10-1 .00 Not Available [facility] ([facility]) [address] [place], [address], 02/23/2025 15:39:03 02/24/20 25 02/23/2025 COMP METAB OLIC PANEL AST (SGOT) 46 U/L 0-37 high Not Available [facility] ([facility]) [address] [place], [address], 02/23/2025 15:39:03 02/24/20 25 02/23/2025 COMP METAB OLIC PANEL ALT (SGPT) 78 U/L 0-65 high Not Available [facility] ([facility]) [address], [place], [address], 02/23/2025 15:39:03 02/24/20 25 02/23/2025 COMP METAB OLIC PANEL alk phosphatase 111 U/L 46-116 Not Available [facility] ([facility]) [address], [place], [address], 02/23/2025 15:39:03 02/24/20 25 02/23/2025 C-KARLI CTIVE PROTE IN (CRP) C-reactive protein, quant 2.0 mg/dL 0.05-0 .300 high Not Available [facility] ([facility]) [address] [facility], [place], [address], 02/23/2025 15:40:11 02/24/20 25 02/23/2025 SED RATE sed rate auto 9 0-20 Not Available [facility] ([facility]) [address], [place], [address], 02/23/2025 15:43:35 02/24/20 25 02/27/2025 URINE CULTU RE,CO MPREH ENSIV E urine culture,comp rehensive FINAL REPORT abnormal Not Available [facility] ([facility]) [address], [place], [address], 02/27/2025 19:09:52 02/24/20 25 02/27/2025 URINE CULTU [...] [facility] ([facility]) [address] [facility], [place], [address], 02/27/2025 19:09:52 02/24/20 25 02/27/2025 URINE CULTU [...] [facility] ([facility]) [address] [facility], [place], [address], 02/27/2025 19:09:52 02/24/20 25 02/27/2025 URINE CULTU [...] [facility] ([facility]) [address] [facility], [place], [address], 02/27/2025 19:09:52 02/24/20 25 02/23/2025 urina lysis , dipst ick Leukocytes (reference range) trace Not Available [place] [address], [place], [address], 02/23/2025 14:16:48 02/24/20 25 02/23/2025 urina lysis , dipst ick Nitrite (reference range:) negati ve Not Available [place] [address], [place], [address], 02/23/2025 14:16:48 02/24/20 25 02/23/2025 urina lysis , dipst ick Urobilinogen (reference range) 0.2 Not Available [place] [address] [address] [facility] [address], [place], [address], 02/23/2025 14:16:48 02/24/20 25 02/23/2025 urina lysis , dipst ick Protein (reference range) negati ve Not Available [place] [address] [address] [facility] [address], [place], [address], 02/23/2025 14:16:48 02/24/20 25 02/23/2025 urina lysis , dipst ick pH (reference range 5-8.5) 6.0 Not Available [place] [address], [place], [address], 02/23/2025 14:16:48 02/24/20 25 02/23/2025 urina lysis , dipst ick Blood (reference range:) small Not Available [place] [address] [address] [facility] [address], [place], [address], 02/23/2025 14:16:48 02/24/20 25 02/23/2025 urina lysis , dipst ick Specific [place] (reference range) 1.015 Not Available [place] [address] [address] [facility] [address], [place], [address], 02/23/2025 14:16:48 02/24/20 25 02/23/2025 urina lysis , dipst ick Ketone (reference range) negati ve Not Available [place] [address] [address] [facility] [address], [place], [address], 02/23/2025 14:16:48 02/24/20 25 02/23/2025 urina lysis , dipst ick Bilirubin (reference range) negati ve Not Available [place] [address] [address] [facility] [address], [place], [address], 02/23/2025 14:16:48 02/24/20 25 02/23/2025 urina lysis , dipst ick Glucose (reference range) 500 Not Available [place] [address] [address] [facility] [address], [place], [address], 02/23/2025 14:16:48 02/24/20 25 02/23/2025 urina lysis , dipst ick Color (reference range: yellow-brown ) Dark Yellow Not Available [place] [address] [address] [facility] [address], [place], [address], 02/23/2025 14:16:48 Result Notes None recorded. Problems Name Problem SNOMED Code Status Onset Date Resolution Date Notes Provider Name and Address Organization Details Recorded Time Syncope 616493275 Active 2021 Malina Hernandez DO [address], [place], [address] , [place] [facility] [place] & [place] 15:33:04 Hypersomnia 71499190 Active 2021 Malina Hernandez DO [address] [facility] [place], [address] , [place] [facility] & [place] 15:34:08 Problem Notes None recorded. Procedures Surgical History Date Name Laterality Status Provider Name and Address Organization Details Recorded Time 09/25/20 23 Cystoscopy-Female completed Silvio Valdez MD [address], [place], [address], [place] [facility] & [place] 09/25/2023 15:26:11 04/04/20 22 Date of Last Pap Smear completed Vandana Eugenioa [place] [facility] & [place] 10/03/2022 14:31:43 10/28/19 22 Continuous Towel Roller Surgery completed Vandana Dalla [place] & [place] 10/03/2022 14:45:45 10/28/19 17 Cholecystectomy completed Vandana Eugenioa [place] [facility] [facility] & [place] 10/03/2022 14:32:27 10/28/19 14 Other completed Vandana Dalla [place] 10/03/2022 14:44:51 cardiac catheterization completed Vandana Dalla [place] 10/03/2022 14:46:31 strabismus surgery completed Vandana Dalla [place] 10/03/2022 14:55:15 Imaging Results None recorded. Procedure Notes None recorded. Medical Equipment None Reported. Allergies Allergen ID Allergen Name Allergen Category Reaction Reaction Severity Criticality Documentation Date Start Date Code Code System Note Provider Name and Address Organization Details Recorded Time 34696 aspirin medicatio n chest pain wheezing moderate severe Not available 10/02/2022 1191 RxNorm Vandana Eugenioa null, [place] [facility] & [place] 09:22:42 85278 Bactrim medicatio n arthralgi a (joint pain) muscle cramps severe severe Not available 10/02/2022 02572 9 RxNorm Vandana Dalla null, [place] [facility] [facility] & [place] 2 09:22:49 24548 insect venom environme nt confusion cough dizziness fever flushing headache wheezing moderate moderate moderate mild moderate moderate moderate Not available 10/02/2022 01113 UNK Vandana catherine, MATHIE[place] - [facility] & [place] 2 09:23:13 47736 Pneumococ georges vaccine Not available anaphylax is chest pain facial swelling nausea rash wheezing moderate moderate moderate moderate moderate moderate Not available 10/02/2022 20202 7 RxNorm Vandana catherine, MATHIEU - [facility] & [place] 2 09:23:25 80951 rosuvasta tin medicatio n eye swelling facial swelling respirato ry distress moderate moderate moderate Not available 10/02/2022 80363 2 RxNorm Vandana catherine, MATHIEU - [facility] & [place] 2 09:23:35 Medications Name Sig [...] % 80 /min 98.6 [degF] 49.6 kg/m2 206203. 86 g 116/100 mm[Hg] Bianca ELLER - [facility] 5 13:59:18 Date Recorded Body height Heart rate Oxygen saturation Oxygen saturation in Arterial blood by Pulse oximetry Heart rate Body temperature Body mass index (BMI) Body weight Systolic And Diastolic Provider Name and Address Organization Details Last Updated DateTime 5 160.02 cm 60 /min 97 % 97 % 60 /min 97.7 [degF] 49.6 kg/m2 801544. 86 g 119/79 mm[Hg] Bianca ELLER - [facility]NT [facility] 5 13:31:54 Date Recorded Body height Body temperature Oxygen saturation Oxygen saturation in Arterial blood by Pulse oximetry Inhaled oxygen flow rate Heart rate Body mass index (BMI) Body weight Systolic And Diastolic Provider Name and Address Organization Details Last Updated DateTime 3 157.48 cm 97.1 [degF] 98 % 98 % 2 L/min 89 /min 48.3 kg/m2 782620. 39 g 128/98 mm[Hg] Phillip Morrison [facility] & [place] 13:04:48 Date Recorded Body height Body mass index (BMI) Body weight Systolic And Diastolic Provider Name and Address Organization Details Last Updated DateTime 08/07/2023 157.48 cm 49.4 kg/m2 390692.94 g 125/75 mm[Hg] Britney Yee [facility] & [place] 08/07/2023 15:05:24 Date Recorded Body height Body mass index (BMI) Body weight Systolic And Diastolic Provider Name and Address Organization Details Last Updated DateTime 09/25/2023 157.48 cm 51.2 kg/m2 777078.86 g 126/76 mm[Hg] Ioana Ayala [facility] & [place] 09/25/2023 15:07:04 Social History Question Answer Notes LastModified by [employer] Details LastModified Time Tobacco Smoking Status Never Smoker Vandana Harris florin, [facility] & [place] 10/03/2022 14:32:09 Do [...] Functional Status Question Answer Note LastModified by [employer] ion Details LastModified Time Do you use any illicit or recreational drugs? No Information not available 10/03/2022 What is your level of alcohol consumption? 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 Occasional Information not available 10/03/2022 Mental Status Question Answer Note LastModified by Organization D etails LastModified Time Do you feel stressed (tense, restless, nervous, or anxious, or unable to sleep at night)? [id number] Information not available 10/03/2022 Family History Relationship [...] SNOMED-CT Code Diagnosis ICD10 Code Diagnosis Note [id number] DO Chanell SanchezARH [facility] [address] [facility],[address] [place] [address] 10/03/2022 14:07:23 10/03/2022 15:38:25 Syncope [id number] R55 She has been experienci ng these stereotypi geogres passing out episodes for five years. No definite witnessed convulsion s but some associated brief confusion afterwards .will order EEG to rule out neurologic causes of syncope Hypersomnia [id number] G47 .10 She describes some significan t episodes of pathologic al sleepiness . She will fall asleep without warning in the middle of talking. This is very infrequent but can be suggestive of narcolepsy . Will order PSG with MSLT to evaluate this in more detail. 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 [id number] Silvio Valdez MD [facility] [address] [place] [address],[address] [place] [address] 08/07/2023 14:35:57 08/07/2023 15:40:17 Recurrent urinary tract infection [id number] N39.0 Kidney stone 22128825 N2 0.0 Chronic th oracic back pain [id number] 65193 M54.6 Microscopic hematuria 19 4782406 R31.29 [id number] Silvio Valdez MD [facility] [address] [place] [address],[address] [place] [address] 09/25/2023 14:26:57 09/25/2023 15:25:02 Recurrent urinary tract infection [id number] N39.0 Kidney stone 89970941 N2 0.0 Microscopic hematuria 19 6872435 R31.29 [id number] [facility]105 1140 [facility] [address] [place] [address] 02/23/2025 13:48:33 02/23/2025 14:17:11 Recurrent urinary tract infection 366622198 N39.0 Will check lab work. Will send urine off for a culture. Will see patient back in 1 week. 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 Patient will follow up in 2 weeks. Call the office if anything persists or worsens. 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 see above Health Concerns Section Related Observation LastModified by Organization Detai ls LastModified Time None Recorded Concern Status LastModified by Organization Details LastModified Time None Recorded Advance Directives Directive N: Payers Insurance Date Sequence Insurance Name Policy Number Policy Valdivia Covered Member ID Valdivia Member ID Guarantor Name 09/18/2023 1 [facility] ([facility] II) [facility] [id number] [facility] 02/27/2025 1 [facility] (MEDICAID HMO) [facility] [id number] [facility] Notes Date Note Type Note Provider Name [...] time. 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 Micheline Lackey MD [facility], [place], [address], [facility] [place] 04/18/2023 12:50:43 08/07/2023 text/html Location: [...] status post hysterectomy. MD [address], [place], [address], [facility] [place] 08/07/2023 15:35:17 09/25/2023 text/html Patient [...] status post hysterectomy. MD [address], [place], [address], [place] [facility] [place] 09/25/2023 15:30:10 02/23/2025 text/html patient [...] 2025. Marilou David APRN [address], [place], [address], [place] [facility] [place] 02/24/2025 10:59:38 03/02/2025 text/html patient presents to clinic for follow up. Urine culture results received. Patient denies any fever. She is scheduled to have surgery to remove her stone on . Marilou David APRN [address], [place], [address], [place] [facility] [place] 03/02/2025 13:35:40 OBGyn Episode No OBEpisode recorded.
--- OUTSIDE RECORDS SUMMARY | 2025-05-07 15:55 | XMS_ITS | Encounter Summary ---
Author Organization [facility] Address [address] [place] [address] Care Team Providers Care Ophthalmic Lens Inspector Name Role Phone Juarez Griffin MD Primary Care Provider [phone] Karen Naqvi DO Unavailable [phone] Encounter Details Date Type Department Care Team ([facility] st Contact Info) Description 02/12/2024 Orders Only External Location [address] [place] [address] Gennaro Cuevas MD [facility], [facility]0 [facility] [address] [place] [address] Social History Tobacco Use Types Packs/Day Years [...] Added from external infection. Source: [facility]. This patient will require contact precautions indefinitely. 04/01/2024 documented as of this encounter Care Teams Ophthalmic Lens Inspector Relationship Specialty Start Date End Date Juarez Griffin MD [address] [place] [address] PCP - General 03/10/21 Karen Naqvi DO [facility], [facility] [address] [place] [address] Referring Physician Obstetrics and Gynecology 09/23/24 documented as of this encounter
--- OUTSIDE RECORDS SUMMARY | 2025-05-07 15:55 | XMS_ITS | Referral Summary ---
Author Organization [employer] ([place], [place], [place], [place]) Address [address] [place] [address] Care Team Providers Care Motorcycle Subassembly Repairer Name Role Phone Juarez Griffin MD Primary Care Provider [phone] Allergies Active Allergy Reactions Criticality Noted Date [...] Do you speak a language other than Amharic at [facility]? No 12/27/2023 Do you want help with [...] on file Medical Devices Implanted Type Area Brick Loader Device Identifier Shelf Expiration Date Model / Serial / Lot Loop Recorder LOOP RECORDER Left: Chest Insurance [facility] [place] [id number] [facility] Advance Directives For more information, please contact: [phone] * Full Code (Latest Code Status on File) Date Activated Date Inactivated Comments 12/27/2023 3:21 AM 12/30/2023 2:53 PM -Attempt Resus citation if person has no pulse and is not breathing. -If no pulse or not breathing attempt CPR/CODE. -Call Rapid Response if patient is in distress. Care Teams Motorcycle Subassembly Repairer Relationship Specialty Start Date End Date Juarez Griffin MD [address] [place] [address] PCP - General General Internal Medicine 12/30/23
--- OUTSIDE RECORDS SUMMARY | 2025-05-07 15:55 | XMS_ITS | Encounter Summary ---
Author Organization [facility] Address [address] [place] [address] Care Team Providers Care Cotton Weigher Name Role Phone Juarez Griffin MD Primary Care Provider [phone] Karen Naqvi DO Unavailable [phone] Encounter Details Date Type Department Care Team ([facility] st Contact Info) Description 03/12/2025 Orders Only External Location [address] [place] [address] Provider, External Social History Tobacco Use Types [...] drink first t yue in the morning (EYE-ONLINE SERVICES MANAGER) to steady your nerves or to [...] Comment:+ 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 Source: [facility] [employer]. This patient will require contact precautions indefinitely. 04/01/2024 Assessment Noted Time A fall risk assessment has been complete d for the patient 10/05/2024 1:53 PM EST A Body Mass Index follow-up plan has been documented for the patient 04/12/2024 12:42 PM EDT documented as of this encounter Care Teams Cotton Weigher Relationship Specialty Start Date End Date Juarez Griffin MD [address] [facility] [address] [place] [address] PCP - General 03/10/21 Karen Naqvi DO 1210 [facility] [address] [place] [address] Referring Physician Obstetrics and Gynecology 09/23/24 documented as of this encounter
[2025-05-07 16:57] LABS: Alanine Aminotransferase 64 U/L (12-78); Albumin Level 4.3 g/dl (3.5-5.0); Albumin/Globulin Ratio 1.4 (1.1-1.8); Alkaline Phosphatase 93 U/L (38-126); Anion Gap 18.2 mEq/L (5-15); Aspartate Amino Transferase 42 U/L (14-36); Bilirubin,Total 0.5 mg/dl (0.2-1.3); Blood Urea Nitrogen 18 mg/dl (7-17); Calcium 10.3 mg/dl (8.4-10.2); Carbon Dioxide 28 mmol/L (22.0-30.0); Chloride 96 mmol/L (98-107); Cholesterol 153 mg/dl (140-200); Creatinine,Serum 0.70 mg/dl (0.52-1.04); Estimated Glomerular Filt Rate 88 ml/min (>60); GFR (African American) 106 ML/MIN (>60); Globulin 3.0 g/dL (1.3-3.2); Glucose 110 mg/dl (74-100); HDL Cholesterol 24 mg/dl (40-60); Magnesium 1.7 mg/dl (1.6-2.3); Potassium 4.2 mmoL/L (3.5-5.1); Sodium 138 mmol/L (136-145); Total Protein,Serum 7.3 g/dl (6.3-8.2); Triglycerides 351 mg/dl (30-150)
[2025-05-07 17:15] LABS: Free T4 (Free Thyroxine) 1.14 ng/dl (0.78-2.19)
[2025-05-07 17:28] LABS: Thyroid Stimulating Hormone 1.07 uIU/mL (0.465-4.68)
== END 2025-05-07 23:59 | disposition home or self-care (01) ==
LOC: LAB 15:53
PROVIDERS: PCP Internal Medicine; Visit Provider Emergency Medicine
DX: E78.00 Pure hypercholesterolemia, unspecified (principal); I49.3 Ventricular premature depolarization
CPT/HCPCS: 36415; 80053; 80061; 83735; 84439; 84443

== ENCOUNTER 2025-05-23 19:05 | Emergency (ER) | payer OTHER, SELFPAY ==
--- OUTSIDE RECORDS SUMMARY | 2025-03-24 13:00 | XMS_ITS | Encounter Summary ---
[facility] Address [address] [place] [address] Care Team Providers Care Chemical Plant Technical Director Name Role Phone Juarez Griffin MD Primary Care Provider [phone] Encounter Details Date Type Department Care Team (Late st Contact Info) Description 03/24/2025 1:00 PM EDT Pre-Admission Testing [facility] P[facility] T [address] [place] [address] Social History Tobacco Use Types Packs/Day Years Used Date Smoking Tobacco: Never Passive Smoke Exposure: Never Smokeless Tobacco: Never Alcohol Use Standard Drinks/Week Comments Not Currently 0 (1 standard drink = 0.6 oz pur e alcohol) Maybe 3 drinks annually [facility] Utilities Answer Date Recorded In the past 12 months has e electric, gas, oil, or water company threatened to shut off services in your home? No 04/16/2024 AUDIT-C Answer Date Recorded Q1: How often do you have a drink containing alcohol? Never 04/15/2024 Q2: How many drinks containi ng alcohol do you have on a typical day when you are drinking? Patient does not drink Q3: How often do you have si x or more drinks on one occasion? Never 04/15/2024 Overall Financial Resource Strain (CARDIA) Answe r Date Recorded How hard is it for you to pa y for the very basics like food, housing, medical care, and heating? Not hard at all 04/16/2024 [facility] - Occupational Stress Questionnaire Answer Date Recorded Do you feel stress - tense, restless, nervous, or anxious, or unable to sleep at night because your mind is troubled all the time - these days? Not at all 04/16/2024 Exercise Vital Sign Answer Date Recorde d On average, how many days pe r week do you engage in moderate to strenuous exercise (like a brisk walk)? 0 days 04/16/2024 On average, how many minutes do you engage in exercise at this level? 0 min 04/16/2024 Hunger Vital Sign Answer Date Recorded Within the past 12 months, y ou worried that your food would run out before you got the money to buy more. Never true 04/16/20 24 Within the past 12 months, t he food you bought just didn't last and you didn't have money to get more. Never true 04/16/2024 PRAPARE - Transportation Answer Date Re corded In the past 12 months, has l ack of transportation kept you from medical appointments or from getting medications? No 03/29 In the past 12 months, has l ack of transportation kept you from meetings, work, or from getting things needed for daily living? No 04/16/2024 Abuse Screen Answer Date Recorded Feels Unsafe at Home or Work/School no 03/24/2025 Feels Threatened by Someone no 02/26 Does Anyone Try to Keep You From Having Contact with Others or Doing Things Outside Your Home? no 03/24/2025 Physical Signs of Abuse Present no 03/24/2025 Housing Stability Answer Date Recorded Current Living Arrangements home 05/2025 Potentially Unsafe Housing Conditions Not on landon e 03/04/2025 Family and Community Support Answer Fady e Recorded If for any reason you need h elp with day-to-day activities such as bathing, preparing meals, shopping, managing finances, etc., do you get the help you need? I don't need any help 04/16/2024 How often do you feel lonely or isolated from those around you? Never 04/16/2024 Employment Answer Date Recorded Do you want help finding or keeping work or a job? I do not need or want help 04/16/2024 Disabilities Answer Date Recorded Difficulty Concentrating, Remembering or Making Decisions no 03/04/2025 Difficulty Managing Errands Independently yes 03/04/2025 Education Answer Date Recorded Help with school or training? Not on file Preferred Language Trinidadian 02/25/2025 PHQ-2 Answer Date Recorded Retired PHQ-9: Brief Depression Severity Measure Score 0 04/16/2024 Comments No Sex and Gender Information Value Date Recorded Sex Assigned at Not on file Legal Sex Female 9:09 AM EST Gender Identity Not on file Sexual Orientation Not on file Occupation Industry Job Start Date Job End Date DISABLED Not on file Not on file Not on file documented as of this encounter Plan of Treatment Upcoming Encounters Date Type Department Care Team (Late st Contact Info) Description 06/15/2025 8:40 AM EDT Telemedicine [facility] UROLOGY [address] [facility] [address] [address] Teressa Finley APRN [address] [place] [address] [address] 07/01/2025 1:00 PM EDT Appointment [facility] ULTRASOUND AT [address] [address] 07/01/2025 2:00 PM EDT Appointment [facility] CT AT [address] [address] 07/06/2025 1:00 PM EDT Office Visit [facility] [address] [facility] [address] [address] Teressa Finley APRN [address] [place] [address] [address] 11/01/2025 1:30 PM EST Office Visit [facility] CARDIOLOGY [address] [address] Yaneth Ugarte MD [address] [place] [address] documented as of this encounter Visit Diagnoses Not on filedocumented in this encounter Care Teams Chemical Plant Technical Director Relationship Specialty Start Date End Date Juarez Griffin MD [address] [facility] [address] [place] [address] PCP - General Internal Medicine 05/30/23 documented as of this encounter
--- OUTSIDE RECORDS SUMMARY | 2025-03-31 08:29 | XMS_ITS | Encounter Summary ---
Author Organization [facility] Address [address] [place] [address] Care Team Providers Care Asic Engineer Name Role Phone Juarez Griffin MD Primary Care Provider [phone] Reason for Visit * Auth/Cert Specialty Diagnoses / Procedures Referred By Ruma elizabeth Referred To Contact Diagnoses Staghorn calculus Procedures Percutaneous nephrolithotomy with stent placement Referral ID Status Reason Start Date Expiration Date Visits Re quested Visits Authorized [id number] 1 1 Encounter Details Date Type Department Care Team (Latest Contact Info) Description 03/31/2025 8:29 AM EDT - 03/31/2025 2:15 PM EDT Hospital Encounter [facility] OR [address] [place] [address] Demarcus Ames MD [address] [address] Staghorn calculus Discharge Disposition: Home or Self Care Social History Tobacco Use Types Packs/Day Years Used Date Smoking Tobacco: Never Passive Smoke Exposure: Never Smokeless Tobacco: Never Alcohol Use Standard Drinks/Week Comments Not Currently 0 (1 standard drink = 0.6 oz pur e alcohol) Maybe 3 drinks annually [facility] Utilities Answer Date Recorded In the past 12 months has [employer], gas, oil, or water [employer] threatened to shut off services in your home? No 04/16/2024 AUDIT-C Answer Date Recorded Q1: How often do you have a drink containing alcohol? Never 04/15/2024 Q2: How many drinks containi ng alcohol do you have on a typical day when you are drinking? Patient does not drink 4 Q3: How often do you have si x or more drinks on one occasion? Never 04/15/2024 Overall Financial Resource Strain (CARDIA) Answe r Date Recorded How hard is it for you to pa y for the very basics like food, housing, medical care, and heating? Not hard at all 04/16/2024 [facility] Occupational Stress Questionnaire Answer Date Recorded [...] or training? Not on file Preferred Language Colombian 02/25/2025 PHQ-2 Answer Date Recorded Retired PHQ-9: [...] on file documented as of this encounter Last Filed Vital Signs Vital Sign Reading Time Taken Comments Blood Pressure 123/67 03/31/2025 1:40 PM EDT Pulse 69 03/31/2025 1:40 PM EDT Temperature 36.3 C (97.3 F) 03/31/2025 1:40 PM EDT Respiratory Rate 16 03/31/2025 1:40 PM EDT Oxygen Saturation 93% 03/31/2025 1:40 PM EDT Inhaled Oxygen Concentration - - Weight - - Height - - Body Mass Index - - documented in this encounter Functional Status * Question Answer Date of Assessment Author 1. Wish to be (Past 1 Month) No 025 9:18 AM EDT Vandana Curtis RN 2. Non-Specific Active Suici adama Thoughts (Past 1 Month) No 03/31/2025 9:18 AM EDT Vandana Curtis RN * Calculated C-SSRS Risk Score (Lifetime/Recent) Answer Date of Assessment Author No Risk Indicated 03/31/2025 9:18 AM EDT Cathy Curtis RN * [place]idan Suicide Severity Rating Scale (Screener/Recent Self-Report) Question Answer Date of Assessment Author 6. Suicidal Behavior (Lifetime) No 9:18 AM EDT Vandana Curtis RN documented as of this encounter Discharge Instructions * Discharge Instructions* Mark Craig RN - 03/31/2025 12:00 PM EDT Images from the original note were not included. Home Care After PCNL The following instructions will help you care for yourself, or be cared for upon your return home today. These are guidelines for your care right after surgery only. Diet Drink plenty of liquids and eat light meals today. Start your regular diet tomorrow. Activity Start normal activities in twenty-four (24) hours. Wound Care and Hygiene No restrictions, start normal routine. Anesthesia Precautions & Expectations After anesthesia, rest for [address], drink alcoholic beverages or make any important decisions during this time. General anesthesia may cause a sore throat, jaw discomfort or muscle aches. These symptoms can last for one or two days. What to Expect after Surgery Mild pain with voiding. Frequency or urgency. Bladder cramps. Minimal bleeding with voiding. Call your Doctor Passing clots in urine preventing bladder emptying Severe pain not controlled by oral medication Temperature above 101.5 degrees Inability to urinate within eight (8) hours after surgery After Stent Placement It is common to have blood tinged urine for 3-5 days. It is common to have pain in your side and in your back when you urinate for 3-5 days. It is common to have urgency with urination. This is a temporary stent and will need to be removed in the office in 1 week. Do not take the Pyridium 24 hours prior to your stent removal. Other Contacts Urology Office: [address] [facility] [address] [place] [phone] office fax Other Instructions Take tamsulosin daily until the stent comes out. Take oxybutynin daily as needed for bladder spasm while the stent is in. Take Pyridium up to 3 times daily as needed for burning with urination. Take Tylenol scheduled every 6 hours for the first 3 days. Alternat diclofenac every 3 hours with this if you are given it. Take the oxycodone on top of that as needed. Take all of the antibiotics. Follow up Appointment 1 week for stent removal. Please See After visit Summary. Call if you do not have an appt already scheduled. No pushing, pulling, tugging, heavy lifting, or strenuous activity. No major decision making, driving, or drinking alcoholic beverages for 24 hours. ( due to the medications you have received) Always use good hand hygiene/washing techniques. NO driving while taking pain medications. * if you have an incision: Check your incision area every day for signs of infection. Check for: * more redness, swelling, or pain *more fluid or blood *warmth *pus or bad smellTo assist you in voiding: Drink plenty of fluids Listen to running water while attempting to void. If you are unable to urinate and you have an uncomfortable urge to void or it has been 6 hours since you were discharged, return to the Emergency Room * Attachments The following attachments cannot be sent through Care Everywhere. * Preventing Problems After Surgery (Colombian) documented in this encounter Medications at Time of Discharge bumetanide (BUMEX) 2 MG tabletIndication s:Swelling of lower extremity TAKE ONE TABLET BY MOUTH TWICE DAILY 60 tablet 11 12/31/2023 cetirizine (zyrTEC) 10 MG tablet Take 1 tablet by mouth Daily. ibuprofen (ADVIL,MOTRIN) 800 MG tablet Take 1 tablet by mouth Every 6 (Six) Hours As Needed for Moderate Pain. 07/01/2024 ipratropium-albu terol (DUO-NEB) 0.5-2.5 mg/3 ml nebulizer As Needed. 09/03/2023 Linzess 290 MCG capsule capsule Take 1 capsule by mouth Every Morning Before Breakfast. 03/19/2025 metFORMIN (GLUCOPHAGE) 500 MG tablet Take 1 tablet by mouth 2 (Two) Times a Day. montelukast (SINGULAIR) 10 MG tablet Take 1 tablet by mouth Every Night. 06/30/2024 Mounjaro 2.5 MG/0.5ML solution auto-injector Holding at this time 01/11/2025 naloxone (NARCAN) 4 MG/0.1ML nasal sprayIndications :Nephrolithiasis ,Recurrent UTI Call 911. Don't prime. [place] in 1 nostril for overdose. Repeat in 2-3 minutes in other nostril if no or minimal breathing/responsi veness. 2 each 04/15/2024 nebivolol (BYSTOLIC) 5 MG tablet TAKE ONE TABLET BY MOUTH EVERY DAY 90 tablet 5 06/26/2024 O2 (OXYGEN) 2 L by Alternating Nares route Every Night. omeprazole (priLOSEC) 20 MG capsule Take 1 capsule by mouth Daily. 30 capsule 6 01/26/2025 ondansetron (ZOFRAN) 4 MG tablet Take 1 tablet by mouth Every 8 (Eight) Hours As Needed. 02/11/2023 [employer]space Verio test strip USE TO TEST BLOOD SUGAR ONCE DAILY DIRECTED 09/02/2024 pravastatin (PRAVACHOL) 40 MG tablet 10 mg. 11/18/2024 promethazine (PHENERGAN) 25 MG tablet Take 1 tablet by mouth Every 6 (Six) Hours As Needed for Nausea or Vomiting. senna 8.6 MG tablet TAKE ONE TABLET BY MOUTH TWICE DAILY NEEDED FOR CONSTIPATION 02/03/2025 spironolactone (ALDACTONE) 50 MG tablet Take 1 tablet by mouth Daily. 30 tablet 6 01/26/2025 tiZANidine (ZANAFLEX) 4 MG tablet Take 1 tablet by mouth As Needed. 01/07/2023 Trelegy Ellipta 100-62.5-25 MCG/ACT inhaler Inhale 1 puff Daily. 09/01/2024 Ventolin HFA 108 (90 Base) MCG/ACT inhaler INHALE TWO PUFFS BY MOUTH EVERY 4 TO 6 HOURS NEEDED 18 g 6 11/29/2023 vitamin C (ASCORBIC ACID) 500 MG tablet Daily. 03/02/2024 vitamin D3 125 MCG (5000 UT) capsule capsuleIndicatio ns:Vitamin D deficiency Take 1 capsule by mouth Daily. 30 capsule 11 07/07/2024 acetaminophen (TYLENOL) 500 MG tabletIndication s:Staghorn calculus Take 2 tablets by mouth Every 6 (Six) Hours for 3 days. 30 tablet 03/31/2025 1:24 PM EDT 03/31/2025 ertapenem (INVanz) MBP 1 g in 100 NSIndications:St aghorn calculus Infuse 1 g into a venous catheter Daily for 6 days. 03/31/2025 5 Calcium Carb-Cholecalcif jenna 500-3.125 MG-MCG tablet Take by mouth Daily. 5 docusate sodium (Colace) 100 MG capsuleIndicatio ns:Staghorn calculus Take 1 capsule by mouth 2 (Two) Times a Day. If taking pain pill 15 capsule 1 03/31/2025 1:24 PM EDT 03/31/2025 5 glipiZIDE 2.5 MG tablet Take 1 tablet by mouth 2 (Two) Times a Day. 5 methenamine (HIPREX) 1 g tablet Take 1 tablet by mouth Every 12 (Twelve) Hours. Holding at this time due to UTI 10/31/2024 5 oxybutynin (DITROPAN) 5 MG tablet TAKE ONE TABLET BY MOUTH TWICE DAILY NEEDED FOR BLADDER SPASMS 10/29/2024 5 oxybutynin XL (Ditropan XL) 10 MG 24 hr tabletIndication s:Staghorn calculus Take 1 tablet by mouth Daily As Needed (bladder spasm). 10 tablet 03/31/2025 1:24 PM EDT 03/31/2025 5 oxyCODONE (Roxicodone) 5 MG immediate release tabletIndication s:Staghorn calculus Take 1 tablet by mouth Every 6 (Six) Hours As Needed for Moderate Pain or Severe Pain. 5 tablet 03/31/2025 1:24 PM EDT 03/31/2025 5 phenazopyridine (PYRIDIUM) 100 MG tabletIndication s:Staghorn calculus Take 1 tablet by mouth Daily As Needed (urinary burning). 5 tablet 03/31/2025 1:24 PM EDT 03/31/2025 5 phenazopyridine (PYRIDIUM) 200 MG tablet TAKE ONE TABLET BY MOUTH THREE TIMES DAILY NEEDED FOR painful urination --TAKE WITH FOOD-- 10/29/2024 5 sacubitril-valsa rtan (Entresto) 24-26 MG tabletIndication s:Swelling of lower extremity Take 1 tablet by mouth 2 (Two) Times a Day. 60 tablet 2 12/25/2024 tamsulosin (FLOMAX) 0.4 MG capsule 24 hr capsuleIndicatio ns:Staghorn calculus Take 1 capsule by mouth Every Night. 10 capsule 03/31/2025 1:24 PM EDT 03/31/2025 5 documented as of this encounter H&P Notes * Demarcus Ames MD - 03/31/2025 9:43 AM EDT Images from the original note were not included. CC No chief complaint on file. HPI Lissy Valdez is a 49 y.o. with history of 1. Staghorn calculus No recent fevers or new LUTS Does not take any blood thinners Past Medical History Past Medical History: Diagnosis Date Acid reflux Asthma Bronchitis frequently - last 01/2024 Chronic chest pain followed by Dr. Ugarte -ROBBIN 03/05/24 Chronic diastolic (congestive) heart failure cardiac clearance by Dr. Ugarte - 03/05/24 Condition not found 1996 ACID INHALATION COPD (chronic obstructive pulmonary disease) followed by PCP Coronary artery disease 2017 Chf with pef, tach and arrhythmia Fibroid 1989 Uterine Frequent falls Gallstones Goiter 2023 Hard to intubate HBP (high blood pressure) High cholesterol History of transfusion prior to hysterectomy had severe anemia Hyperparathyroidism 2023 Hypotension, unspecified Impaired functional mobility, balance, gait, and endurance secondary to RA, balance, - uses wheelchair Implantable loop recorder present states does not work - battery Kidney stones Lightheadedness frequently with occasional syncopal epsisode (suspected QUIROGA) Pericarditis Polycystic ovary syndrome 1991 PONV (postoperative nausea and vomiting) nausea and vomiting Pre-diabetes Precordial pain Pure hypercholesterolemia Rheumatoid arthritis Sepsis 2021 SIRS (systemic inflammatory response syndrome) 12/2023 hospitalized - [facility] Syncope and collapse fruequent fall and pt report of concussions Thyroid nodule 2023 Biopsy cleat Type 2 diabetes mellitus 2023 Non insulin dependent Urinary incontinence 2013 Mild UTI (urinary tract infection) CHRONIC - followed by infectious disease MD; antibiotic resistant Vaginal infection 1990? Yeast Vitamin D deficiency 2023 Last labs D was high Past Surgical History Past Surgical History: Procedure Laterality Date CARDIAC CATHETERIZATION 11/2021 no stents CHOLECYSTECTOMY 2019 CYSTOSCOPY 2023 Results normal CYSTOSCOPY W/ LASER LITHOTRIPSY EYE SURGERY childhood - for lazy eye HYSTERECTOMY 2021 pt states was told blood pressure was low during surgery LAPAROSCOPIC TUBAL LIGATION OOPHORECTOMY PARATHYROIDECTOMY N/A 03/04/2025 Procedure: PARATHYROIDECTOMY; Surgeon: Zac Mckeon MD; Location: [facility] OR; Service: General; Laterality: N/A; PERCUTANEOUS NEPHROSTOLITHOTOMY Right 04/15/2024 Procedure: CYSTOSCOPY & BALLOON OCCLUSION CATHETER PLACEMENT, PRIMARY PERCUTANEOUS ACCESS, NEPHROSTOLITHOTOMY PERCUTANEOUS, WITH STENT EXCHANGE; Surgeon: Demarcus Ames MD; Location: [facility] OR; Service: Urology; Laterality: Right; TUBAL ABDOMINAL LIGATION 1994 Medications Current Facility-Administered Medications: acetaminophen (TYLENOL) tablet 650 mg, 650 mg, Oral, Once, Demarcus Ames MD ampicillin-sulbactam (UNASYN) 3 g in sodium chloride 0.9 % 100 mL IVPB-VTB, 3 g, Intravenous, Once,Demarcus Ames MD sodium chloride 0.9 % flush 3 mL, 3 mL, Intravenous, Q12H, Demarcus Ames MD sodium chloride 0.9 % flush 3-10 mL, 3-10 mL, Intravenous, PRN, Demarcus Ames MD sodium chloride 0.9 % infusion 40 mL, 40 mL, Intravenous, PRN, Demarcus Ames MD tobramycin (NEBCIN) 400 mg in sodium chloride 0.9 % IVPB, 400 mg, Intravenous, Once, Demarcus Ames MD Allergies Allergies Allergen Reactions Aspirin Anaphylaxis Bee Venom Anaphylaxis Levaquin [Levofloxacin] Swelling Pneumococcal Vaccine Anaphylaxis, Unknown - High Severity, Nausea Only, Rash, Swelling and Shortness Of Breath Rosuvastatin Anaphylaxis Tolerates Pravastatin with no issues. Sodium Hypochlorite Anaphylaxis Sucralose Shortness Of Breath and Other (See Comments) blisters Augmentin [Amoxicillin-Pot Clavulanate] Rash Facial flushing Beta lactam allergy details Antibiotic reaction: (!) swollen tongue, shortness of breath Age at reaction: adult Dose to reaction time: (!) hours Reason for antibiotic: unknown Epinephrine required for reaction?: no (steriods) Tolerated antibiotics: amoxicillin, augmentin, cephalexin Sulfamethoxazole-Trimethoprim Other (See Comments) Extreme joint pain, nausea and vomiting Beta lactam allergy details Antibiotic reaction: (!) swollen tongue, shortness of breath Age at reaction: adult Dose to reaction time: (!) hours Reason for antibiotic: unknown Epinephrine required for reaction?: no (steriods) Tolerated antibiotics: amoxicillin, augmentin, cephalexin Social History Social History Socioeconomic History Marital status: Number of children: 2 Tobacco Use Smoking status: Never Passive exposure: Never Smokeless tobacco: Never Vaping Use Vaping status: Never Used Substance and Sexual Activity Alcohol use: Not Currently Comment: Maybe 3 drinks annually Drug use: Never Sexual activity: Yes Partners: Male control/protection: Tubal ligation, Hysterectomy Review of Systems Constitutional: No fevers or chills Skin: Negative for rash Endocrine: No heat/cold intolerance Cardiovascular: Negative for chest pain or dyspnea on exertion Respiratory: Negative for shortness of breath or wheezing Gastrointestinal: No constipation, nausea or vomiting Genitourinary: Negative for new lower urinary tract symptoms, current gross hematuria or dysuria. Musculoskeletal: No flank pain Neurological: Negative for frequent headaches or dizziness Lymph/Heme: Negative for leg swelling or calf pain. Physical Exam Visit Vitals BP 157/73 (BP Location: Right arm, Patient Position: Sitting) Pulse 62 Temp 97.5 ??F (36.4 ??C) (Temporal) Resp 18 SpO2 97% Constitutional: NAD, WDWN. HEENT: NCAT. Conjunctivae normal. MMM. Cardiovascular: Regular rate. Pulmonary/Chest: Respirations are even and unlabored bilaterally. Abdominal: Soft. No distension, tenderness, masses or guarding. No CVA tenderness. Neurological: A + O x 3. Cranial Nerves II-XII grossly intact. Normal gait. Extremities: TREVOR x 4, Warm. No clubbing. No cyanosis. Skin: [place], warm and dry. No rashes noted. Psychiatric: Normal mood and affect Labs & Imaging Lab Results Component Value Date GLUCOSE 120 (H) 03/24/2025 CALCIUM 9.7 03/24/2025 NA 140 03/24/2025 K 4.1 03/24/2025 CO2 26.5 03/24/2025 CL 97 (L) 03/24/2025 BUN 16.0 03/24/2025 CREATININE 0.90 03/24/2025 EGFRIFAFRI 90 05/29/2023 BCR 17.8 03/24/2025 ANIONGAP 16.5 (H) 03/24/2025 Lab Results Component Value Date WBC 10.22 03/24/2025 HGB 14.8 03/24/2025 HCT 45.0 03/24/2025 MCV 85.7 03/24/2025 PLT 326 03/24/2025 Brief Urine Lab Results (Last result in the past 365 days) Color Clarity Blood Leuk Est Nitrite Protein CREAT Urine HCG 03/24/25 1308 Yellow Clear Small (1+) Small (1+) Negative Negative Urine Culture 03/24/2025 13:08 Urine Culture Urine Culture <25,000 CFU/mL Normal Urogenital Martina No results found. Assessment Lissy Valdez is a 49 y.o. female who presents with the following diagnosis: 1. Staghorn calculus Plan 1. To OR for Percutaneous nephrolithotomy with stent placement left Demarcus Ames MD documented in this encounter OR Notes * Op Note - Demarcus Ames MD - 03/31/2025 10:46 AM EDT Preprocedure diagnosis Nephrolithiasis Postprocedure diagnosis Same Procedure 1. Cystoscopy, insertion of ureteral catheter (37350) 2. left retrograde pyelogram (31741) 3. left complicated percutaneous nephrolithotomy with establishment of nephrostomy tract with ultrasound guidance (10453, 46840-32, 98882) with ureteral stent 4. Fluoroscopy time <1hr Attending surgeon Demarcus Ames MD Anesthesia General Complications None EBL 20 cc Specimen Stone fragments for biochemical analysis Findings Overedge Machine Operator film and retrograde pyelogram revealed a filling defect consistent with the previously identified stone. Antegrade pyeloscopy revealed no clinically significant stones remaining. At the end of the case the antegrade pyelogram /microstrategy developer film revealed no filling defects. Indications The patient is a 49 y.o. female with a history of left kidney stones. After reviewing the options, an informed consent was obtained for the above named procedure. Technique The patient was taken to the operating room and administered a general anesthetic. He was carefullypositioned supine in the bed. A timeout was performed. The flexible cystoscope was passed carefully via the urethra into the bladder, which was inspected for additional stones or aberrant anatomy, and a sensor wire advanced up to the left kidney followedby a 7-Irish open-ended balloon occlusion catheter. The flexible scope was removed and a Simpson catheter placed in the bladder. These were then covered in a sterile fashion with ioban. The patient was then flipped supine onto the operative table with all pressure points carefully padded, prepped and draped. Imaging over the left kidney revealed stone burden consistent with preoperative imaging. A retrograde pyelogram was performed with findings as described above. Under fluoroscopic and ultrasound guidance, an 18-gauge needle was used to perform a percutaneous puncture into the lower pole calyx. After clear urine returned, a sensor wire was passed down to the bladder and exchanged for an Amplatz super-stiff wire. The skin incision was enlarged. The tract dilated with a 24 Fr balloon and the sheath placed. The kidney was entered and the stone encountered. It was broken up and cleared with a combination of the Lithoclast ultrasonic lithotriptor and a two-prong grasper. Flexible nephroscopy revealed no other stones or fragments. The total burden removed was clearly greater than 2 cm and the procedure was complicated due to patient morbid obesity, difficult lower pole access, branched stone over 2 cm. The occlusion catheter was removed prior to placement of a 7Fr x 28 cm ureteral stent. The rigid scope was used to visualize the PCNL tract as the sheath was removed. Pressure was held on the wound for 5 minutes. No further bleeding ensued after. Hemostatic agent was applied. The safety wire was then removed. Absorbable suture was used to close the skin incision. Dermabond was applied. The patient tolerated the procedure well and there were no difficulties or complications. The patient was transferred to recovery in stable condition. documented in this encounter Plan of Treatment Upcoming Encounters Date Type Department Care Team (Late st Contact Info) Description 06/15/2025 8:40 AM EDT Telemedicine [facility] [address] [facility] [address] [address] Teressa Finley APRN [address] [facility] [address] [address] 07/01/2025 1:00 PM EDT Appointment [facility] AT [address] [place] [address] 07/01/2025 2:00 PM EDT Appointment [facility] [place] [address] [address] 07/06/2025 1:00 PM EDT Office Visit [facility] [address] [place] [address] Teressa Finley, COMPLIANCE QUALITY PERFORMANCE ANALYST [address] [place] [address] 11/01/2025 1:30 PM EST Office Visit [facility] CARDIOLOG[facility] [address] [place] [address] Yaneth Ugarte MD [address] [place] [address] documented as of this encounter Procedures Procedure Name Priority Date/Time Associated Diagnosis Comments FL C ARM DURING SURGERY Routine 03/31/20 12:03 PM EDT TISSUE / BONE CULTURE Routine 03/31/2025 11:55 AM EDT Staghorn calculus STONE ANALYSIS STAT 03/31/2025 11:45 AM EDT Staghorn calculus NEPHROSTOLITHOTOMY PERCUTANEOUS AND CYSTOSCOPY 03/31/2025 10:10 AM EDT Staghorn calculus POCT GLUCOSE FINGERSTICK Routine 025 9:12 AM EDT TYPE AND SCREEN STAT 03/31/2025 9:03 AM EDT Staghorn calculus SCANNED - TELEMETRY 03/31/2025 documented in this encounter Results * FL C Arm During Surgery (03/31/2025 12:03 PM EDT) Narrative SYSTEMGENERATED, DOCUMENTATION - 03/31/2025 12:04 PM EDT This procedure was auto-finalized with no dictation required. Demarcus Ames MD IMG FLUOROSCOPY ORDERABLE S Final Result * (ABNORMAL) Tissue / Bone Culture - Calculus, Kidney, Left (03/31/2025 11:55 AM EDT) Tissue Culture Rare growth Proteus mirabilis(A) TOMASA 04/03/2025 9:18 AM EDT [facility] Gram Stain No organisms seen 04/03/2025 9:18 AM EDT [facility] Calculus Left kidney structure / Unknown 03/31/2025 11:55 AM EDT 03/31/2025 12:36 PM EDT Comment:Sterile specimen cup Narrative Organism Antibiotic Method Susceptibility Proteus mirabilis Amoxicillin + Clavulanate TOMASA <=2 ug/ml: Susceptible Proteus mirabilis Ampicillin TOMASA >=32 ug/ml: Resistant Proteus mirabilis Ampicillin + Sulbactam TOMASA 4 ug/ml: Susceptible Proteus mirabilis Cefazolin (Non Urine) TOMASA >=32 ug/ml: Resistant Proteus mirabilis Cefepime TOMASA 1 ug/ml: Susceptible Proteus mirabilis Ceftazidime TOMASA <=0.5 ug/ml: Susceptible Proteus mirabilis Ceftriaxone TOMASA 32 ug/ml: Resistant Proteus mirabilis Cefuroxime axetil TOMASA >=64 ug/ml: Resistant Proteus mirabilis Ciprofloxacin TOMASA >=4 ug/ml: Resistant Proteus mirabilis Gentamicin TOMASA <=1 ug/ml: Susceptible Proteus mirabilis Levofloxacin TOMASA >=8 ug/ml: Resistant Proteus mirabilis Piperacillin + Tazobactam TOMASA <=4 ug/ml: Susceptible Proteus mirabilis Tetracycline TOMASA >=16 ug/ml: Resistant Proteus mirabilis Trimethoprim + Sulfamethoxazole TOMASA <=20 ug/ml: Susceptible Comment:With the exception o f urinary-sourced infections, aminoglycosides should not be used as monotherapy. Demarcus Ames MD MICROBIOLOGY - GENERAL OR DERABLES Final Result [facility]
[address] [place] [address], [place] [phone] [facility]
[address] [place] [address], [place] [phone] * STONE ANALYSIS - Calculus, Kidney, Left (03/31/2025 11:45 AM EDT) Stone Source Comment 04/14/2025 10:06 PM EDT [facility] Comment:Left Kidney Color Jimenez 04/14/2025 10:06 PM EDT [facility] Size 7x6 mm 04/14/2025 10:06 PM EDT [facility] Comment: Multiple pieces received. Dimensions of the largest piece reported. Stone Weight 1136 mg 04/14/2025 10:06 PM EDT [facility] Ca Oxalate - Monohydrate, Stone 10 % 04/14/2025 10:06 PM EDT [facility] Carbonate Apatite 40 % 04/14/2025 10:06 PM EDT [facility] Magnesium [place] Phos 40 % 04/14/2025 10:06 PM EDT [facility] Ammonium Acid Urate 10 % 04/14/2025 10:06 PM EDT [facility] Comment Comment 04/14/2025 10:06 PM EDT [facility] Comment: Calculus received wet. Wet calculi must be dried before analysis, which delays reporting of results. Leaving calculi wet (such as water, saline, blood, urine) may lead to changes in composition. Calculus Left kidney structure / Unknown 03/31/2025 11:45 AM EDT 03/31/2025 12:35 PM EDT Narrative [facility] - 04/14/2025 10:06 PM EDT Performed at: 01 - [facility] [address] [id number] Pit Furnace Melter: Mariam Turner PhD, Phone: [phone] Demarcus Ames MD BODY FLUIDS AND STOOLS OR DERABLES Final Result Performing Organization Address City/[facility]/ZIP Co de Phone Number [facility] [address] [place] [address], * (ABNORMAL) POC Glucose Once (03/31/2025 9:12 AM EDT) Glucose 200(H) 70 - 130 mg/dL 03/31/2025 9:33 AM EDT [facility] Comment:Serial Number: [id number] Blood 03/31/2025 9:12 AM EDT 03/31/2025 9:33 AM EDT Demarcus Ames MD POINT OF CARE TEST ORDERA BLES Final Result Performing Organization Address [facility] Co de Phone Number [facility]
[address] [place] [address], * Type & Screen (03/31/2025 9:03 AM EDT) ABO Type AB 03/31/2025 10:05 AM EDT [facility] RH type Positive 03/31/2025 10:05 AM EDT [facility] Antibody Screen Negative 03/31/2025 10:05 AM EDT [facility] T&S Expiration Date 04/03/2025 11:59:59 PM 03/31/2025 10:05 AM EDT [facility] Blood Venipuncture / Unknown 03/31/2025 9:03 AM EDT 03/31/2025 9:09 AM EDT Demarcus Ames MD BLOOD BANK TEST ORDERABLE S Edited Result - Final Performing Organization Address [facility] Co de Phone Number [facility]
[address] [place] [phone], * Telemetry Scan (03/31/2025) [facility] ECG ORDERABLES Final Result documented in this encounter Visit Diagnoses Diagnosis Staghorn calculus- Primary Calculus of kidney Staghorn calculus Calculus of kidney documented in this encounter Admitting Diagnoses Diagnosis Staghorn calculus Calculus of kidney documented in this encounter Administered Medications Inactive Administered Medications - up to 3 most recent administrations Medication Order MAR Action Action Date Dose Rate Site acetaminophen (TYLENOL) tablet 650 mg 650 mg, Oral, Once, On Sat03/31/25 at 0945, For 1 dose, Based on patient request - if ordered for moderate or severe pain, provider allows for administration of a medication prescribed for a lower pain scale. Do not exceed 4 grams of acetaminophen in a 24 hr period. Max dose of 2gm for AST/ALT greater than 120 units/L. If given for pain, use the following pain scale: Mild Pain = Pain Score of 1-3, CPOT 1-2 Moderate Pain = Pain Score of 4-6, CPOT 3-4 Severe Pain = Pain Score of 7-10, CPOT 5-8Indications:Staghorn calculus Given 03/31/2025 9:48 AM EDT 650 mg albuterol (PROVENTIL) nebulizer solution 0.083% 2.5 mg/3mL 2.5 mg, Nebulization, Once As Needed, Wheezing, Shortness of Air, bronchospasm, Starting on Sat03/31/25 at 1224, For 1 dose, Include Respiratory Treatment Education dexAMETHasone sodium phosphate injection 8 mg 8 mg, Intravenous, Once As Needed, Vomiting, Nausea, If not given pre-op/intra-op, Starting on Sat03/31/25 at 1224, For 1 dose, If giving IV, may be pushed over a minimum of 1 minute. HYDROmorphone (DILAUDID) injection 0.5 mg 0.5 mg, Intravenous, Every 15 Minutes PRN, Moderate Pain, Starting on Sat03/31/25 at 1224, For 4 doses, Maximum total dose of HYDROmorphone is 2 mg. Based on patient request - if ordered for moderate or severe pain, provider allows for administration of a medication prescribed for a lower pain scale. (DAKOTA) Caution: Look alike/sound alike drug alert If given for pain, use the following pain scale: Mild Pain = Pain Score of 1-3, CPOT 1-2 Moderate Pain = Pain Score of 4-6, CPOT 3-4 Severe Pain = Pain Score of 7-10, CPOT 5-8 Given 03/31/2025 12:41 PM EDT 0.5 mg Given 03/31/2025 12:27 PM EDT 0.5 mg Midazolam HCl (PF) (VERSED) injection 1 mg 1 mg, Intravenous, Every 5 Minutes PRN, Anxiety, Starting on Sat03/31/25 at 1224, (DAKOTA) Morphine sulfate (PF) injection 0.5 mg 0.5 mg, Intravenous, Every 5 Minutes PRN, Severe Pain, Starting on Sat03/31/25 at 1224, For 4 doses, Maximum total dose of morphine is 10 mg. Based on patient request - if ordered for moderate or severe pain, provider allows for administration of a medication prescribed for a lower pain scale. (DAKOTA) Caution: Look alike/sound alike drug alert If given for pain, use the following pain scale: Mild Pain = Pain Score of 1-3, CPOT 1-2 Moderate Pain = Pain Score of 4-6, CPOT 3-4 Severe Pain = Pain Score of 7-10, CPOT 5-8 ondansetron (ZOFRAN) injection 4 mg 4 mg, Intravenous, Once As Needed, Nausea, Vomiting, If not given pre-op/intra-op, Starting on Sat03/31/25 at 1224, For 1 dose, If BOTH ondansetron (ZOFRAN) and promethazine (PHENERGAN) are ordered use ondansetron first and THEN promethazine IF ondansetron is ineffective. Given 03/31/2025 12:44 PM EDT 4 mg tobramycin (NEBCIN) 400 mg in sodium chloride 0.9 % IVPB 400 mg, Intravenous, Administer over 30 Minutes, Once, On Sat03/31/25 at 0945, For 1 dose, Indications: Surgical ProphylaxisIndications:Surgical Prophylaxis New Bag 03/31/2025 9:49 AM EDT 400 mg documented in this encounter Active and Recently Administered Medications Times are shown in EDT. Scheduled Medication Order 03/29/2025 03/30/2025 03/31/2025 acetaminophen (TYLENOL) tablet 650 mg (COMPLETED) 650 mg, Oral, Once, On Sat03/31/25 at 0945, For 1 dose, Based on patient request - if ordered for moderate or severe pain, provider allows for administration of a medication prescribed for a lower pain scale. Do not exceed 4 grams of acetaminophen in a 24 hr period. Max dose of 2gm for AST/ALT greater than 120 units/L. If given for pain, use the following pain scale: Mild Pain = Pain Score of 1-3, CPOT 1-2 Moderate Pain = Pain Score of 4-6, CPOT 3-4 Severe Pain = Pain Score of 7-10, CPOT 5-8 0948 (Given - Provid er: Vandana Curtis, FREDY) ampicillin-sulbactam (UNASYN) 3 g in sodium chloride 0.9 % 100 mL IVPB-VTB (COMPLETED) 3 g, Intravenous, Once, On Sat03/31/25 at 0945, For 1 dose, Administer Within 1 Hour of Surgical Incision Redose 2 Hours From Pre-Op Dose if Procedure Ongoing or Blood Loss Greater Than 1.5 Liters Activate vial before using., Indications: Surgical Prophylaxis 1037 (New Bag - Prov ider: Edgardo Ryan CRNA) tobramycin (NEBCIN) 400 mg in sodium chloride 0.9 % IVPB (COMPLETED) 400 mg, Intravenous, Administer over 30 Minutes, Once, On Sat03/31/25 at 0945, For 1 dose, Indications: Surgical Prophylaxis 0949 (New Bag - Prov ider: Vandana Curtis RN) PRN Medication Order 03/29/2025 03/30/2025 03/31/2025 albuterol (PROVENTIL) nebulizer solution 0.083% 2.5 mg/3mL 2.5 mg, Nebulization, Once As Needed, Wheezing, Shortness of Air, bronchospasm, Starting on Sat03/31/25 at 1224, For 1 dose, Include Respiratory Treatment Education bupivacaine-EPINEPHrine PF (MARCAINE w/EPI) 0.25% -1:891090 injection (CANCELED) As Needed, Starting on Sat03/31/25 at 1046 1046 (Given - Provid er: Demarcus Ames MD) dexAMETHasone sodium phosphate injection 8 mg 8 mg, Intravenous, Once As Needed, Vomiting, Nausea, If not given pre-op/intra-op, Starting on Sat03/31/25 at 1224, For 1 dose, If giving IV, may be pushed over a minimum of 1 minute. HYDROmorphone (DILAUDID) injection 0.5 mg 0.5 mg, Intravenous, Every 15 Minutes PRN, Moderate Pain, Starting on Sat03/31/25 at 1224, For 4 doses, Maximum total dose of HYDROmorphone is 2 mg. Based on patient request - if ordered for moderate or severe pain, provider allows for administration of a medication prescribed for a lower pain scale. (DAKOTA) Caution: Look alike/sound alike drug alert If given for pain, use the following pain scale: Mild Pain = Pain Score of 1-3, CPOT 1-2 Moderate Pain = Pain Score of 4-6, CPOT 3-4 Severe Pain = Pain Score of 7-10, CPOT 5-8 1227 (Given - Provid er: Susie Branltey RN)1241 (Given - Provider: Susie Brantley RN) iopamidol (ISOVUE-300) 61 % injection (CANCELED) As Needed, Starting on Sat03/31/25 at 1125 1125 (Given - Provid er: Demarcus Ames MD) Midazolam HCl (PF) (VERSED) injection 1 mg 1 mg, Intravenous, Every 5 Minutes PRN, Anxiety, Starting on Sat03/31/25 at 1224, (DAKOTA) Morphine sulfate (PF) injection 0.5 mg 0.5 mg, Intravenous, Every 5 Minutes PRN, Severe Pain, Starting on Sat03/31/25 at 1224, For 4 doses, Maximum total dose of morphine is 10 mg. Based on patient request - if ordered for moderate or severe pain, provider allows for administration of a medication prescribed for a lower pain scale. (DAKOTA) Caution: Look alike/sound alike drug alert If given for pain, use the following pain scale: Mild Pain = Pain Score of 1-3, CPOT 1-2 Moderate Pain = Pain Score of 4-6, CPOT 3-4 Severe Pain = Pain Score of 7-10, CPOT 5-8 ondansetron (ZOFRAN) injection 4 mg (COMPLETED) 4 mg, Intravenous, Once As Needed, Nausea, Vomiting, If not given pre-op/intra-op, Starting on Sat03/31/25 at 1224, For 1 dose, If BOTH ondansetron (ZOFRAN) and promethazine (PHENERGAN) are ordered use ondansetron first and THEN promethazine IF ondansetron is ineffective. 1244 (Given - Provid er: Susie Brantley RN) sodium chloride (NS) irrigation solution (CANCELED) As Needed, Starting on Sat03/31/25 at 1046 1046 (Given - Provid er: Demarcus Ames MD - Comment: for cystoscopy) sodium chloride (NS) irrigation solution (CANCELED) As Needed, Starting on Sat03/31/25 at 1046 1046 (Given - Provid er: Demarcus Ames MD) documented in this encounter Care Teams Asic Engineer Relationship Specialty Start Date End Date Juarez Griffin MD Formerly [facility], [facility] [address] [place] [address] PCP - General Internal Medicine 05/30/23 documented as of this encounter
--- OUTSIDE RECORDS SUMMARY | 2025-03-31 10:05 | XMS_ITS | Encounter Summary ---
[facility] Address [address] [place] [address] Care Team Providers Care Senior Stack Engineer Name Role Phone Juarez Griffin MD Primary Care Provider [phone] Reason for Visit * Auth/Cert Specialty Diagnoses / Procedures Referred By Ruma elizabeth Referred To Contact Diagnoses Staghorn calculus Procedures Percutaneous nephrolithotomy with stent placement Referral ID Status Reason Start Date Expiration Date Visits Re quested Visits Authorized [id number] 1 1 Encounter Details Date Type Department Care Team (Late st Contact Info) Description 03/31/2025 10:05 AM EDT Anesthesia Event Converted [facility] [address] [place] [address] Social History Tobacco Use Types Packs/Day Years Used Date Smoking Tobacco: Never Passive Smoke Exposure: Never Smokeless Tobacco: Never Alcohol Use Standard Drinks/Week Comments Not Currently 0 (1 standard drink = 0.6 oz pur e alcohol) Maybe 3 drinks annually [facility] Utilities Answer Date Recorded In the past 12 months has [employer], gas, oil, or water Motorpane[employer] threatened to shut off services in your [...] and heating? Not hard at all 04/16/2024 [facility] - Occupational Stress Questionnaire Answer Date [...] or training? Not on file Preferred Language French 02/25/2025 PHQ-2 Answer Date Recorded Retired PHQ-9: [...] on file documented as of this encounter Functional Status * Question Answer [...] 9:18 AM EDT Cathy Curtis RN * [place] Suicide Severity Rating Scale (Screener/Recent Self-Report) Question Answer Date of Assessment Author 6. Suicidal Behavior (Lifetime) No 9:18 AM EDT Vandana Curtis RN documented as of this encounter Plan of Treatment Upcoming Encounters Date Type Department Care Team (Late st Contact Info) Description 06/15/2025 8:40 AM EDT Telemedicine [facility] UROLOGY [address] [facility] [address] [address] Teressa Finley, SNOWMAKER 793 [facility] MOB [address] [address] 07/01/2025 1:00 PM EDT Appointment [facility] ULTRASOUND AT [place] [address] [place] [address] 07/01/2025 2:00 PM EDT Appointment [facility] [place] [address] [place] [address] 07/06/2025 1:00 PM EDT Office Visit [facility] UROLOGY [address] [place] [address] Teressa Finley, SNOWMAKER [address] [place] [address] 11/01/2025 1:30 PM EST Office Visit [facility] CARDIOLOGY [address] [place] [address] Yaneth Ugarte MD [address] [place] [address] documented as of this encounter Procedures Procedure Name Priority Date/Time Associated Diagnosis Comments ANESTHESIA PERIPHERAL BLOCK Routine 03/31/2025 10:04 AM EDT documented in this encounter Results * Peripheral Block (03/31/2025 10:04 AM EDT) Narrative Herber Matt CRNA - 03/31/2025 10:04 AM EDT Herber Matt CRNA 03/31/2025 10:04 AM Peripheral Block Performed by: Herber Matt CRNA us Edgardo Ryan CRNA ANESTHESIA ORDERABLES Final Result documented in this encounter Visit Diagnoses Not on filedocumented in this encounter Care Teams Senior Stack Engineer Relationship Specialty Start Date End Date Juarez Griffin MD [address] [place] [facility] [address] [place] [address] PCP - General Internal Medicine 05/30/23 documented as of this encounter
--- OUTSIDE RECORDS SUMMARY | 2025-03-31 10:10 | XMS_ITS | Encounter Summary ---
[facility] Organization [facility] Address [address] [place] [address] Care Team Providers Care Resource Director Name Role Phone Juarez Griffin MD Primary Care Provider [phone] Reason for Visit * Auth/Cert Specialty Diagnoses / Procedures Referred By Ruma elizabeth Referred To Contact Diagnoses Staghorn calculus Procedures Percutaneous nephrolithotomy with stent placement Referral ID Status Reason Start Date Expiration Date Visits Re quested Visits Authorized [id number] 1 1 Encounter Details Date Type Department Care Team (Late st Contact Info) Description 03/31/2025 10:10 AM EDT - 03/31/2025 12:11 PM EDT Surgery [facility] OR [address] [place] [address] Demarcus Ames MD [address] [address] Percutaneous nephrolithotomy with stent placement left, cystoscopy Social History Tobacco Use Types Packs/Day Years Used Date Smoking Tobacco: Never Passive Smoke Exposure: Never Smokeless Tobacco: Never Alcohol Use Standard Drinks/Week Comments Not Currently 0 (1 standard drink = 0.6 oz pur e alcohol) Maybe 3 drinks annually [facility] Utilities Answer Date Recorded In the past 12 months has [employer], gas, oil, or water [employer] threatened to shut off services in your [...] and heating? Not hard at all 04/16/2024 [facility] - Occupational Stress Questionnaire Answer Date Recorded [...] or training? Not on file Preferred Language [place] Islander 02/25/2025 PHQ-2 Answer Date Recorded Retired PHQ-9: [...] Sign Reading Time Taken Comments Blood Pressure 136/73 03/31/2025 12:10 PM EDT Pulse 75 03/31/2025 12:10 PM EDT Temperature 36.3 C (97.4 F) 03/31/2025 12:06 PM EDT Respiratory Rate 14 03/31/2025 12:10 PM EDT Oxygen Saturation 98% 03/31/2025 12:10 PM EDT Inhaled Oxygen Concentration - - [...] 9:18 AM EDT Cathy Curtis RN * [place] Suicide Severity Rating Scale (Screener/Recent Self-Report) Question [...] stent removal. Other Contacts Urology Office: [address] [facility] [address] [place] [phone] office fax Other Instructions Take tamsulosin daily [...] Care Everywhere. * Preventing Problems After Surgery ([place] Islander) documented in this encounter Medications at Time [...] :Nephrolithiasis ,Recurrent UTI Call 911. Don't prime. [place] in 1 nostril for overdose. Repeat in [...] Every 8 (Eight) Hours As Needed. 02/11/2023 OneAdd2paper Verio test strip USE TO TEST BLOOD [...] Procedure: PARATHYROIDECTOMY; Surgeon: Zac Mckeon MD; Location: [facility] OR; Service: General; Laterality: N/A; PERCUTANEOUS NEPHROSTOLITHOTOMY Right 04/15/2024 Procedure: CYSTOSCOPY & BALLOON OCCLUSION CATHETER PLACEMENT, PRIMARY PERCUTANEOUS ACCESS, NEPHROSTOLITHOTOMY PERCUTANEOUS, WITH STENT EXCHANGE; Surgeon: Demarcus Ames MD; Location: [facility] OR; Service: Urology; Laterality: Right; TUBAL ABDOMINAL [...] 4, Warm. No clubbing. No cyanosis. Skin: [place], warm and dry. No rashes noted. Psychiatric: [...] Procedure 1. Cystoscopy, insertion of ureteral catheter (59519) 2. left retrograde pyelogram (50124) 3. left complicated percutaneous nephrolithotomy with establishment of nephrostomy tract with ultrasound guidance (24223, 19563-36, 19015) with ureteral stent 4. Fluoroscopy time <1hr Attending surgeon Demarcus Ames MD Anesthesia General Complications None EBL 20 cc Specimen Stone fragments for biochemical analysis Findings Art Librarian film and retrograde pyelogram revealed a filling defect consistent with the previously identified stone. Antegrade pyeloscopy revealed no clinically significant stones remaining. At the end of the case the antegrade pyelogram /care specialist film revealed no filling defects. Indications The [...] up to the left kidney followedby a 7-Czech open-ended balloon occlusion catheter. The flexible scope [...] Info) Description 06/15/2025 8:40 AM EDT Telemedicine [facility] [address] [facility] [address] [address] Teressa Finley APRN 793 [facility] [address] [address] 07/01/2025 1:00 PM EDT Appointment [facility] ULTR[facility]OUND AT [address] [place] [address] 07/01/2025 2:00 PM EDT Appointment [facility] CT AT [place] [facility] [address] [address] 07/06/2025 1:00 PM EDT Office Visit [facility] UROLOGY [address] [place] [address] Teressa Finley, SNAP SHEARER [address] [place] [address] 11/01/2025 1:30 PM EST Office Visit [facility] CARDIOLOGY [address] [place] [address] Yaneth Ugarte MD [address] [place] [address] documented as of this encounter Procedures [...] Proteus mirabilis(A) TOMASA 04/03/2025 9:18 AM EDT [facility] Gram Stain No organisms seen 04/03/2025 9:18 AM EDT [facility] Calculus Left kidney structure / Unknown [...] MICROBIOLOGY - GENERAL OR DERABLES Final Result [facility]
[address] [place] [address], [place] [phone] [facility]
[address] [place] [address], [place] [phone] * STONE ANALYSIS - Calculus, Kidney, Left [...] 04/14/2025 10:06 PM EDT [facility] Magnesium [place] Phos 40 % 04/14/2025 10:06 PM EDT [...] PM EDT Performed at: 01 - [facility] [place] [id number] Loan Expeditor: Mariam Turner PhD, Phone: [phone] Demarcus Ames MD BODY FLUIDS AND STOOLS OR DERABLES Final Result Performing Organization Address City/[facility]/ZIP Co de Phone Number [facility] [address] [place] [address], * (ABNORMAL) POC Glucose Once (03/31/2025 9:12 AM EDT) Glucose 200(H) 70 - 130 mg/dL 03/31/2025 9:33 AM EDT [facility] Comment:Serial Number: [id number] Blood 03/31/2025 9:12 AM EDT 03/31/2025 9:33 AM EDT Demarcus Ames MD POINT OF CARE TEST ORDERA BLES Final Result Performing Organization Address [facility] Co de Phone Number [facility]
[address] [place] [address], * Type & Screen (03/31/2025 9:03 AM EDT) ABO Type AB 03/31/2025 10:05 AM EDT [facility] RH type Positive 03/31/2025 10:05 AM EDT [facility] Antibody Screen Negative 03/31/2025 10:05 AM EDT [facility] T&S Expiration Date 04/03/2025 11:59:59 PM 03/31/2025 10:05 AM EDT [facility] Blood Venipuncture / Unknown 03/31/2025 9:03 AM EDT 03/31/2025 9:09 AM EDT Demarcus Ames MD BLOOD BANK TEST ORDERABLE S Edited Result - Final Performing Organization Address [facility] Co de Phone Number [facility]
[address] [place] [phone], * Telemetry Scan (03/31/2025) [facility] ECG ORDERABLES Final Result documented in this encounter Visit Diagnoses Diagnosis Staghorn calculus- Primary Calculus of kidney Staghorn calculus Calculus of kidney Staghorn calculus Calculus of [...] Treatment Education bupivacaine-EPINEPHrine PF (MARCAINE w/EPI) 0.25% -1:229969 injection As Needed, Starting on Sat03/31/25 at 1046 Given 03/31/2025 10:46 AM EDT 30 mL dexAMETHasone sodium phosphate injection 8 mg 8 [...] Given 03/31/2025 12:27 PM EDT 0.5 mg iopamidol (ISOVUE-300) 61 % injection As Needed, Starting on Sat03/31/25 at 1125 Given 03/31/2025 11:25 AM EDT 60 mL Midazolam HCl (PF) (VERSED) injection 1 mg [...] Given 03/31/2025 12:44 PM EDT 4 mg sodium chloride (NS) irrigation solution As Needed, Starting on Sat03/31/25 at 1046 Given 03/31/2025 10:46 AM EDT 1,000 mL sodium chloride (NS) irrigation solution As Needed, Starting on Sat03/31/25 at 1046 Given 03/31/2025 10:46 AM EDT 6,000 mL tobramycin (NEBCIN) 400 mg in sodium chloride [...] 5-8 0948 (Given - Provid er: Vandana Curtis RN) ampicillin-sulbactam (UNASYN) 3 g in sodium chloride [...] Vandana Curtis RN) PRN Medication Order 03/29/2025 03/30/202503/31/2025 albuterol (PROVENTIL) nebulizer solution 0.083% 2.5 mg/3mL 2.5 mg, Nebulization, Once As Needed, Wheezing, Shortness of Air, bronchospasm, Starting on Sat03/31/25 at 1224, For 1 dose, Include Respiratory Treatment Education bupivacaine-EPINEPHrine PF (MARCAINE w/EPI) 0.25% -1:756672 injection (CANCELED) As Needed, Starting on Sat03/31/25 [...] 5-8 1227 (Given - Provid er: Susie Brantley RN)1241 (Given - Provider: Susie Brantley RN) [...] MD) documented in this encounter Care Teams Resource Director Relationship Specialty Start Date End Date Juarez Griffin MD [address] [facility] [address] [facility] [place] [address] PCP - General Internal Medicine 05/30/23 documented as of this encounter
--- OUTSIDE RECORDS SUMMARY | 2025-03-31 10:26 | XMS_ITS | Encounter Summary ---
[facility] Organization [facility] Address [address] [place] [address] Care Team Providers Care Paperhanger Name Role Phone Juarez Griffin MD Primary Care Provider [phone] Reason for Visit * Auth/Cert Specialty Diagnoses / Procedures Referred By Ruma elizabeth Referred To Contact Diagnoses Staghorn calculus Procedures Percutaneous nephrolithotomy with stent placement Referral ID Status Reason Start Date Expiration Date Visits Re quested Visits Authorized [id number] 1 1 Encounter Details Date Type Department Care Team (Late st Contact Info) Description 03/31/2025 10:26 AM EDT Anesthesia Event [facility] OR [address] [place] [phone] Edgardo Ryan CRNA [address] [place] [address] Anesthesia Record Procedure Summary Procedure Name Responsible Anesthesiologist Anesthesia Start Time Anesthesia Stop Time ANESTHESIA PERIPHERAL BLOCK Edgardo Ryan CRNA 03/31/25 1026 03/31/25 1205 Events Date Time Event Comment 03/31/2025 0853 1011 AN Equip Check 1026 An Start The patient was reevaluated immediately before moderate or deep sedation use and before anesthesia induction. 1027 An Start Data 1031 An Induction 1032 An Intubation 1037 Anesthesia Ready 1158 An Extubation 1203 an stop data 1205 Handoff to RN The following has been completed: 1. Identification of Patient, merida family member(s) or patient surrogate 2. Identification of the responsible Practitioner (primary service) 3. Discussion of the pertinent/attainable medical history 4. Discussion of the surgical/procedure course (procedure, reason for surgery, procedure performed) 5. Intraoperative anesthetic management and issue/concerns to include things such as airway, hemodynamics, narcotic, sedation level and paralytic management and intravenous fluids/blood products and urine output during the procedure 6. Expectations/Plans for the early post-procedure period to include things such as anticipated course (anticipatory guidance), complications, need for laboratory or ECG and medication administration 7. Opportunity for questions and acknowledgment of understanding of report from the receiving PACU/ICU team 1205 An Stop Meds Name Total lidocaine (cardiac) 60 mg propofol 10 MG/ML 200 mg dexAMETHasone 4 MG/ML 4 mg ondansetron 2 mg/mL 4 mg Succinylcholine Chloride 200 MG/10ML 160 mg rocuronium 50 MG/5ML 40 mg fentaNYL citrate (PF) 50 MCG/ML 100 mcg Phenylephrine HCl-NaCl 1000-0.9 MCG/10ML -% 100 mcg ampicillin-sulbactam (UNASYN) 3 g in sod ium chloride 0.9 % 100 mL IVPB-VTB 3 g ePHEDrine Sulfate (Pressors) 50 MG/ML 10 mg sugammadex 200 MG/2ML 200 mg furosemide (LASIX) injection 10 mg/mL 20 mg lactated ringers infusion 1,800 mL * Agents Name O2 N2O Air Sevoflurane Inspired Sevoflurane * Blood No blood administrations on file. Lines, Drains, and Airways Type Details Placement Removal Wound 04/15/24; 1145; N; Right; back; Incision 04/15/24 1145 by Analisa Ramsey RN Ureteral Drain/Stent 04/15/24; 1232; Yes ; Right ureter; 7 Fr. 04/15/24 1232 by Analisa Ramsey RN Wound 03/04/25; throat; Surgical; Closed Surgi 03/04/25 0000 by Emma Corley RN Ureteral Drain/Stent 03/31/25; 1130; Lef t ureter 03/31/25 1130 by Roxann Contreras RN Peripheral IV Placement Date: 03/31/25; Placement Time: 09; Catheter Size: 20 G; Orientation: Left, Posterior; Location: Hand; Site Prep: Chlorhexidine; Local Anes: None; Technique: Anatomical landmarks; Patient Tolerance: Tolerated well; Removal Date: 03/31/25; Removal Time: 1410 03/31/25 0940 by Vandana Curtis RN 03/31/25 1410 by Mark Craig RN ETT Placement Date: 03/31/25; Placement Time: 1031 (created via procedure documentation); Blade Size: 3; Location: Oral; Removal Date: 03/31/25; Removal Time: 1158 03/31/25 1032 by Edgardo Ryan CRNA 03/31/25 1158 by Edgardo Ryan CRNA documented in this encounter Social History Tobacco Use Types Packs/Day Years Used Date Smoking Tobacco: Never Passive Smoke Exposure: Never Smokeless Tobacco: Never Alcohol Use Standard Drinks/Week Comments Not Currently 0 (1 standard drink = 0.6 oz pur e alcohol) Maybe 3 drinks annually [facility] Utilities Answer Date Recorded In the past 12 months has [employer], gas, oil, or water [employer] threatened to shut off services in your [...] and heating? Not hard at all 04/16/2024 [facility] Occupat ional [facility] - Occupational Stress [...] or training? Not on file Preferred Language Danish 02/25/2025 PHQ-2 Answer Date Recorded Retired PHQ-9: [...] (Past 1 Month) No 025 9:18 AM Vandana Blackmon RN 2. Non-Specific Active Suici adama Thoughts (Past 1 Month) No 03/31/2025 9:18 AM EDT Vandana Curtis RN * Calculated C-SSRS Risk Score (Lifetime/Recent) Answer Date of Assessment Author No Risk Indicated 03/31/2025 9:18 AM EDT Cathy Curtis RN * [place] Suicide Severity Rating Scale (Screener/Recent Self-Report) Question Answer Date of Assessment Author 6. Suicidal Behavior (Lifetime) No 9:18 AM EDT Vandana Curtis RN documented as of this encounter OR Notes * Anesthesia Postprocedure Evaluation - Edgardo Ryan CRNA - 03/31/2025 12:13 PM EDT Patient: Lissy Valdez Procedure Summary Date: 03/31/25 Room / Location: [facility] / [facility] OR Anesthesia Start: 1026 Anesthesia Stop: 1205 Procedure: Percutaneous nephrolithotomy with stent placement left, cystoscopy (Left) Diagnosis: Staghorn calculus (Staghorn calculus [N20.0]) Surgeons: Demarcus Ames MD Provider: Edgardo Ryan CRNA Anesthesia Type: general with block ASA Status: 4 Anesthesia Type: general with block Vitals Vitals Value Taken Time BP Temp Pulse 65 03/31/25 12:13 Resp SpO2 97 % 03/31/25 12:13 Vitals shown include unfiled device data. BP 137/89 Temp 98 RR 20/min Post Anesthesia Care and Evaluation Patient location during evaluation: PACU Patient participation: complete - patient participated Level of consciousness: awake and alert Pain score: 0 Pain management: satisfactory to patient Airway patency: patent Anesthetic complications: No anesthetic complications PONV Status: none Cardiovascular status: acceptable, stable and hemodynamically stable Respiratory status: acceptable, spontaneous ventilation and face mask Hydration status: acceptable Comments: Report to CHANGE MANAGEMENT COORDINATOR. Pt stable, A&O. / * Anesthesia Procedure Notes - Edgardo Ryan CRNA - 03/31/2025 10:40 AM EDT Associated Order(s): Airway Airway Reason: elective Date/Time: 03/31/2025 10:32 AM Airway not difficult General Information and Staff Patient location during procedure: OR SOFT SHOE DANCER/CAA: Edgardo Ryan CRNA Indications and Patient Condition Indications for airway management: airway protection Preoxygenated: yes MILS maintained throughout Mask difficulty assessment: 1 - vent by mask (easy mask without OPA) Final Airway Details Final airway type: endotracheal airway Successful airway: ETT Cuffed: yes Successful intubation technique: video laryngoscopy Adjuncts used in placement: anterior pressure/BURP and intubating stylet Endotracheal tube insertion site: oral Blade: Lili Blade size: 3 ETT size (mm): 7.0 Cormack-Lehane Classification: grade I - full view of glottis Placement verified by: chest auscultation and capnometry Measured from: lips ETT/EBT to lips (cm): 21 Number of attempts at approach: 1 Assessment: lips, teeth, and gum same as pre-op and atraumatic intubation Additional Comments Easy atraumatic intubation on first attempt. * Anesthesia Procedure Notes - Herber Matt CRNA - 03/31/2025 10:04 AM EDTAssociated Order(s): Peripheral Block Peripheral Block Performed by: Herber Matt CRNA * Anesthesia Preprocedure Evaluation - Herber Matt CRNA - 03/31/2025 8:49 AM EDT Anesthesia Evaluation Patient summary reviewed and Nursing notes reviewed history of anesthetic complications: NPO Solid Status: > 8 hours NPO Liquid Status: > 8 hours Airway Mallampati: II TM distance: >3 FB Neck ROM: full Large neck circumference and Difficult intubation highly probable Dental Pulmonary (+) COPD, asthma,shortness of breath Cardiovascular (+) hypertension, valvular problems/murmurs, CAD, CHF , hyperlipidemia ROS comment: ?? Left ventricular systolic function is normal. Calculated left ventricular EF = 60.9% Left ventricular ejection fraction appears to be 56 - 60%. ?? Left ventricular diastolic function was indeterminate. Estimated right ventricular systolic pressure from tricuspid regurgitation is normal (<35 mmHg). 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 Other arthritis, ROS/Med Hx Other: Pure hypercholesterolemia Chronic diastolic (congestive) heart failure Hypotension, unspecified Precordial pain Syncope and collapse COPD (chronic obstructive pulmonary disease) Gallstones Lightheadedness HBP (high blood pressure) Acid reflux Asthma Pre-diabetes High cholesterol Sepsis Kidney stones UTI (urinary tract infection) Condition not found Chronic chest pain Bronchitis SIRS (systemic inflammatory response syndrome) Rheumatoid arthritis Frequent falls Impaired functional mobility, balance, gait, and endurance Implantable loop recorder present PONV (postoperative nausea and vomiting) History of transfusion Pericarditis Polycystic ovary syndrome Type 2 diabetes mellitus Hyperparathyroidism Goiter Thyroid nodule Vitamin D deficiency Urinary incontinence Fibroid Vaginal infection Coronary artery disease Hard to intubate Anesthesia Plan ASA 4 general with block intravenous induction Anesthetic plan, risks, benefits, and alternatives have been provided, discussed and informed consent has been obtained with: patient. Pre-procedure education provided Plan discussed with SANDRA. CODE STATUS: documented in this encounter Plan of Treatment Upcoming Encounters Date Type Department Care Team (Late st Contact Info) Description 06/15/2025 8:40 AM EDT Telemedicine [facility] [address] [facility] [address] [phone] Teressa Finley, PREETI 793 [facility] [address] [address] 07/01/2025 1:00 PM EDT Appointment [facility] [address] [place] [address] 07/01/2025 2:00 PM EDT Appointment [facility] [address] [place] [address] 07/06/2025 1:00 PM EDT Office Visit [facility] [address] [facility] 3 [facility] [address] [place] [phone] Teressa Finley, WARPER FIXER 793 [facility] 3 [facility] [address] [place] [address] 11/01/2025 1:30 PM EST Office Visit [facility] [address] [place] [address] Yaneth Ugarte MD [address] [place] [address] documented as of this encounter Procedures Procedure Name Priority Date/Time Associated Diagnosis Comments ANESTHESIA INTUBATION Routine 03/31/2025 10:40 AM EDT ANESTHESIA PERIPHERAL BLOCK Routine 03/31/2025 10:04 AM EDT documented in this encounter Results * BH AN ETT AIRWAY (03/31/2025 10:40 AM EDT) Narrative Edgardo Ryan CRNA - 03/31/2025 10:40 AM EDT Edgardo Ryan CRNA 03/31/2025 10:41 AM Airway Reason: elective Date/Time: 03/31/2025 10:32 AM Airway not difficult General Information and Staff Patient location during procedure: OR SOFT SHOE DANCER/CAA: Edgardo Ryan CRNA Indications and Patient Condition Indications for airway management: airway protection Preoxygenated: yes MILS maintained throughout Mask difficulty assessment: 1 - vent by mask (easy mask without OPA) Final Airway Details Final airway type: endotracheal airway Successful airway: ETT Cuffed: yes Successful intubation technique: video laryngoscopy Adjuncts used in placement: anterior pressure/BURP and intubating stylet Endotracheal tube insertion site: oral Blade: Lili Blade size: 3 ETT size (mm): 7.0 Cormack-Lehane Classification: grade I - full view of glottis Placement verified by: chest auscultation and capnometry Measured from: lips ETT/EBT to lips (cm): 21 Number of attempts at approach: 1 Assessment: lips, teeth, and gum same as pre-op and atraumatic intubation Additional Comments Easy atraumatic intubation on first attempt. us Edgardo Ryan CRNA ANESTHESIA ORDERABLES Final Result * Peripheral Block (03/31/2025 10:04 AM EDT) Narrative Herber Matt CRNA - 03/31/2025 10:04 AM EDT Herber Matt CRNA 03/31/2025 10:04 AM Peripheral Block Performed by: Herber Matt CRNA us Edgardo Ryan CRNA ANESTHESIA ORDERABLES Final Result documented in this encounter Visit Diagnoses Not on filedocumented in this encounter Administered Medications Inactive Administered Medications - up to 3 most recent administrations Medication Order MAR Action Action Date Dose Rate Site ampicillin-sulbactam (UNASYN) 3 g in sodium chloride 0.9 % 100 mL IVPB-VTB 3 g, Intravenous, Once, On Sat03/31/25 at 0945, For 1 dose, Administer Within 1 Hour of Surgical Incision Redose 2 Hours From Pre-Op Dose if Procedure Ongoing or Blood Loss Greater Than 1.5 Liters Activate vial before using., Indications: Surgical ProphylaxisIndications:Surgi georges Prophylaxis New Bag 03/31/2025 10:37 AM EDT 3 g dexAMETHasone (DECADRON) injection Intravenous, As Needed, Starting on Sat03/31/25 at 1031 Given 03/31/2025 10:31 AM EDT 4 mg ePHEDrine Sulfate (Pressors) Intravenous, As Needed, Starting on Sat03/31/25 at 1043 Given 03/31/2025 10:43 AM EDT 10 mg fentaNYL citrate (PF) (SUBLIMAZE) injection Intravenous, As Needed, Starting on Sat03/31/25 at 1031 Given 03/31/2025 10:31 AM EDT 100 mcg furosemide (LASIX) injection Intravenous, As Needed, Starting on Sat03/31/25 at 1146 Given 03/31/2025 11:46 AM EDT 20 mg lactated ringers infusion Intravenous, Continuous PRN, Starting on Sat03/31/25 at 1026 New Bag 03/31/2025 11:21 AM EDT 100 mL/hr New Bag 03/31/2025 10:26 AM EDT 100 mL/hr lidocaine (cardiac) (XYLOCAINE) injection Intravenous, As Needed, Starting on Sat03/31/25 at 1031 Given 03/31/2025 10:31 AM EDT 60 mg ondansetron (ZOFRAN) injection Intravenous, As Needed, Starting on Sat03/31/25 at 1031 Given 03/31/2025 10:31 AM EDT 4 mg Phenylephrine HCl-NaCl 100 mcg/ml injection Intravenous, As Needed, Starting on Sat03/31/25 at 1037 Given 03/31/2025 10:37 AM EDT 100 mcg propofol (DIPRIVAN) injection Intravenous, As Needed, Starting on Sat03/31/25 at 1031 Given 03/31/2025 10:31 AM EDT 200 mg rocuronium (ZUMURON) injection Intravenous, As Needed, Starting on Sat03/31/25 at 1031 Given 03/31/2025 10:44 AM EDT 35 mg Given 03/31/2025 10:31 AM EDT 5 mg Succinylcholine Chloride (ANECTINE) injection Intravenous, As Needed, Starting on Sat03/31/25 at 1031 Given 03/31/2025 10:31 AM EDT 160 mg sugammadex (BRIDION) injection Intravenous, As Needed, Starting on Sat03/31/25 at 1148 Given 03/31/2025 11:48 AM EDT 200 mg documented in this encounter Care Teams Paperhanger Relationship Specialty Start Date End Date Juarez Griffin MD [address] [facility] [address] [place] [address] PCP - General Internal Medicine 05/30/23 documented as of this encounter
--- OUTSIDE RECORDS SUMMARY | 2025-04-05 09:00 | XMS_ITS | Encounter Summary ---
[facility] Organization [facility] Address [address] [place] [id number] Care Team Providers Care Mission Analyst Name Role Phone Juarez Griffin MD Primary Care Provider [phone] Reason for Referral * Diagnostic Imaging (Routine) - Authorized Specialty Diagnoses / Procedures Referred By Contac t Referred To Contact Radiology Diagnoses Staghorn calculus Procedures US Renal Bilateral Demarcus Ames MD [address] [address] Phone: tel: fax: [facility] [address] [place] [address] Phone: tel: Referral ID Status Reason Start Date Expiration Date V isits Requested Visits Authorized [id number] Authorized 04/05/2025 07/05/2026 1 1 Reason for Visit * Reason Comments Cysto W/Stent Removal Encounter Details Date Type Department Care Team (Latest Contact Info) Description 04/05/2025 9:00 AM EDT Procedure visit [facility] [address] [place] [address] [address] Demarcus Ames MD [address] [address] Staghorn calculus (Primary Dx) Social History Tobacco Use Types Packs/Day Years Used Date Smoking Tobacco: Never Passive Smoke Exposure: Never Smokeless Tobacco: Never Alcohol Use Standard Drinks/Week Comments Not Currently 0 (1 standard drink = 0.6 oz pur e alcohol) Maybe 3 drinks annually [facility] Utilities Answer Date Recorded In the past 12 months has th e electric, gas, oil, or water company [...] and heating? Not hard at all 04/16/2024 [facility] - Occupational Stress Questionnaire Answer Date Recorded [...] or training? Not on file Preferred Language Indonesian 02/25/2025 PHQ-2 Answer Date Recorded Retired PHQ-9: [...] on file documented as of this encounter Progress Notes * Demarcus Ames MD - 04/05/2025 9:00 AM EDT Preoperative diagnosis Foreign body in genitourinary tract Postoperative diagnosis Foreign body in genitourinary tract Procedure Flexible cystourethroscopy with stent removal Attending surgeon Demarcus Ames MD Anesthesia 2% lidocaine jelly intraurethrally Complications None Indications 49 y.o. female who is status post ureteroscopy with laser lithotripsy who presents for stent removal. Procedure Detailed information of all possible complications and side effects were discussed with the patient. Informed consent was obtained. Patient was given one dose of antibiotics. The patient was placed in supine position and a timeout was performed. The patient was prepped and draped in sterile fashion. Next, 2% lidocaine jelly was bluntly injected per urethra without difficulty. The 14 Maori flexible cystoscope was passed through the urethra and into the bladder. The stent was visualized, graspedand removed in its entirety. The patient tolerated the procedure well. Plan 1. Provided education regarding water intake of at least 2 liters per day 2. F/u in 12 weeks with a renal ultrasound with MARCUS 3. PICC line should be removed today after last treatment. documented in this encounter Plan of Treatment Upcoming Encounters Date Type Department Care Team (Late st Contact Info) Description 06/15/2025 8:40 AM EDT Telemedicine [facility] 3 [facility] [address] [address] Teressa Finley, PREETI [address] [facility] [address] [address] 07/01/2025 1:00 PM EDT Appointment [facility] AT [address] [address] 07/01/2025 2:00 PM EDT Appointment [facility] AT [place] [address] [place] [address] 07/06/2025 1:00 PM EDT Office Visit [facility] [address] [facility] [address] [address] Teressa Finley, SHIPPING RECEIVING CLERK 7[address] [facility] [address] [address] 11/01/2025 1:30 PM EST Office Visit [facility] [address] [place] [address] Yaneth Ugarte MD [address] [place] [address] [address] Scheduled Orders Name Type Priority Associated Diagnoses Orde r Schedule US Renal Bilateral Imaging Routine Staghorn calculus Expected: 07/06/2025 (Approximate) documented as of this encounter Visit Diagnoses Diagnosis Staghorn calculus- Primary Calculus of kidney documented in this encounter Care Teams Mission Analyst Relationship Specialty Start Date End Date Juarez Griffin MD [address] [facility] [address] [place] [address] PCP - General Internal Medicine 05/30/23 documented as of this encounter
--- OUTSIDE RECORDS SUMMARY | 2025-05-03 13:30 | XMS_ITS | Encounter Summary ---
Author Organization [facility] Address [address] [place] [address] Care Team Providers Care Oracle Manager Name Role Phone Juarez Griffin MD Primary Care Provider [phone] Reason for Visit * Reason Comments Edema [...] Description 05/03/2025 1:30 PM EDT Office Visit [facility] CARDIOLOGY [address] [place] [address] Yaneth Ugarte MD [address] [place] [address] Hypercholesterolemia (Primary Dx); PVC (premature ventricular contraction); Precordial chest pain; Swelling of lower extremity Social History Tobacco Use Types Packs/Day Years Used Date Smoking Tobacco: Never Passive Smoke Exposure: Never Smokeless Tobacco: Never Tobacco Cessation:Counseling Given: Yes Alcohol Use Standard Drinks/Week Comments Not Currently 0 (1 standard drink = 0.6 oz pur e alcohol) Maybe 3 drinks annually [facility] Utilities Answer Date Recorded In the [...] at all 04/16/2024 [facility] of Occupat ional Health - Occupational Stress [...] or training? Not on file Preferred Language Afghan 02/25/2025 PHQ-2 Answer Date Recorded Retired PHQ-9: [...] MG/0.1ML nasal spray, Call 911. Don't prime. [place] in 1 nostril for overdose. Repeat in [...] Chronic chest pain followed by Dr. Ugarte -[facility] 03/05/24 Chronic diastolic (congestive) heart failure [...] file. Laura Ugarte MD Cardiology and Sleep [facility] 05/03/2025 Please note that this explicitly [...] Info) Description 06/15/2025 8:40 AM EDT Telemedicine [facility] UROLOGY [address] [facility] [address] [phone] Teressa Finley APRN [address] [place] [address] [address] 07/01/2025 1:00 PM EDT Appointment [facility] ULTRASOUND AT [address] [address] 07/01/2025 2:00 PM EDT Appointment [facility] CT AT [address] [address] 07/06/2025 1:00 PM EDT Office Visit [facility] UROLOGY [address] [facility] [address] [address] Teressa Finley APRN [address] [place] [address] [address] 11/01/2025 1:30 PM EST Office Visit [facility] CARDIOLOGY [address] [place] [address] Yaneth Ugarte MD [address] [place] [address] documented as of this encounter Procedures Procedure Name Priority Date/Time Associated Diagnosis Comments ECG 12-LEAD Routine 05/03/2025 2:22 PM EDT Precordial chest pain documented in this encounter Results * ECG 12-LEAD (05/03/2025 2:22 PM EDT) Narrative Karen EscalonaCHRISTOPHER - 05/03/2025 2:22 PM EDT Yaneth Ugarte [...] 03/04/2025 Procedure: PARATHYROIDECTOMY; Surgeon: Zac Mckeon MD;[facility]: [facility]; Service: General; Laterality: N/A; PERCUTANEOUS NEPHROSTOLITHOTOMY Right 04/15/2024 Procedure: CYSTOSCOPY & BALLOON OCCLUSION CATHETER PLACEMENT, PRIMARYPERCUTANEOUS ACCESS, NEPHROSTOLITHOTOMY PERCUTANEOUS, WITH STENT EXCHANGE;Surgeon: Demarcus Ames MD; Location: [facility]; Service:Urology; Laterality: Right; PERCUTANEOUS NEPHROSTOLITHOTOMY Left 03/31/2025 Procedure: Percutaneous nephrolithotomy with stent placement left,cystoscopy; Surgeon: Demarcus Ames MD; Location: [facility] OR;Service: Urology; Laterality: Left; TUBAL ABDOMINAL LIGATION [...] file. Laura Ugarte MD Cardiology and Sleep [facility] 05/03/2025 Please note that this explicitly [...] extremity documented in this encounter Care Teams Oracle Manager Relationship Specialty Start Date End Date Juarez Griffin MD [address] [facility] [address] [place] [address] PCP - General Internal Medicine 05/30/23 documented as of this encounter
[2025-05-23 19:15] VITALS: BP 122/95; PULSE 90; RESP 18; TEMP 37.1; O2SAT 97; BMI 47.8
--- OUTSIDE RECORDS SUMMARY | 2025-05-23 19:16 | XMS_ITS | Encounter Summary ---
Author Organization [facility] Address [address] [place] [id number] Care Team Providers Care Lens Engraver Name Role Phone Juarez Griffin MD Primary Care Provider [phone] Encounter Details Date Type Department Care Team (Late st Contact Info) Description 05/03/2025 Patient rounding ([facility] only) [facility] CARDIOLOGY [address] [place] [address] Yaneth Ugarte MD [address] [place] [address] Social History Tobacco Use Types Packs/Day Years Used Date Smoking Tobacco: Never Passive Smoke Exposure: Never Smokeless Tobacco: Never Alcohol Use Standard Drinks/Week Comments Not Currently 0 (1 standard drink = 0.6 oz pur e alcohol) Maybe 3 drinks annually [facility] Utilities Answer Date Recorded In the past 12 months has [employer], gas, oil, or water [employer] threatened to shut off services in your [...] and heating? Not hard at all 04/16/2024 [facility] [place] of Occupat ional Health - Occupational Stress [...] or training? Not on file Preferred Language Equatorial Guinean 02/25/2025 PHQ-2 Answer Date Recorded Retired PHQ-9: [...] as of this encounter Progress Notes * Tavon Milton RegSched Rep - 05/03/2025 4:15 PM EDT ..My name is Landy Alonzo and I am the [employer] Driver for [facility] Cardiology [facility]. I would like to thank you for being a loyal patient. If you do not mind I would like to ask you a few questions about your recent visit with us. Please feel free to reply if you wish to provide us with feedback on your first visit with our practice. First, could you tell me what went well with your recent visit? Secondly, we are always looking for ways to make our patients' experiences even better. Do you haveany recommendations on ways we may improve? Finally, overall were you satisfied with your first visit to us as a [facility] facility? In the next few days, you will be receiving a Patient Experience Survey. Thank you for taking the time to answer a few questions today. I hope you have a good day. documented in this encounter Plan of Treatment Upcoming Encounters Date Type Department Care Team (Late st Contact Info) Description 06/15/2025 8:40 AM EDT Telemedicine [facility]OLOGY [address] [place] [address] Teressa Finley, GROWTH HACKER [address] [place] [address] 07/01/2025 1:00 PM EDT Appointment [facility] ULTRASOUND AT [place] [address] [place] [address] 07/01/2025 2:00 PM EDT Appointment [facility] CT AT [place] [address] [place] [address] 07/06/2025 1:00 PM EDT Office Visit [facility] [address] [place] [address] Teressa Finley, GROWTH HACKER [address] [facility] [address] [place] [address] 11/01/2025 1:30 PM EST Office Visit [facility] CARDIOLOGY [address] [place] [address] Yaneth Ugarte MD [address] [place] [address] documented as of this encounter Visit Diagnoses Not on filedocumented in this encounter Care Teams Lens Engraver Relationship Specialty Start Date End Date Juarez Griffin MD 1210 [facility] [address] [place] [address] PCP - General Internal Medicine 05/30/23 documented as of this encounter
--- OUTSIDE RECORDS SUMMARY | 2025-05-23 19:16 | XMS_ITS | Encounter Summary ---
[facility] Organization [facility] Address [address] [place] [address] Care Team Providers Care Snow Removing Supervisor Name Role Phone Juarez Griffin MD Primary Care Provider [phone] Encounter Details Date Type Department Care Team (Late st Contact Info) Description 05/10/2025 Results Follow-Up [facility] CARDIOLOGY [address] [place] [address] Yaneth Ugarte MD [address] [place], [place] [address] Social History Tobacco Use Types Packs/Day Years Used Date Smoking Tobacco: Never Passive Smoke Exposure: Never Smokeless Tobacco: Never Alcohol Use Standard Drinks/Week Comments Not Currently 0 (1 standard drink = 0.6 oz pur e alcohol) Maybe 3 drinks annually [facility] Utilities Answer Date Recorded In the past 12 months has [employer], gas, oil, or water [employer] threatened to shut off services in your [...] and heating? Not hard at all 04/16/2024 [employer] [place] of Occupat ional Health - Occupational Stress [...] or training? Not on file Preferred Language Guinean 02/25/2025 PHQ-2 Answer Date Recorded Retired [...] Info) Description 06/15/2025 8:40 AM EDT Telemedicine [facility] UROLOGY [address] [place] [address] [address] Teressa Finley, ELECTRONICS REPAIR TECHNICIAN 793 [facility] [address] [address] 07/01/2025 1:00 PM EDT Appointment [facility] ULTRASOUND AT [address] [address] 07/01/2025 2:00 PM EDT Appointment [facility] CT AT [address] [address] 07/06/2025 1:00 PM EDT Office Visit [facility] [address] [place] [address] [address] Teressa Finley, ELECTRONICS REPAIR TECHNICIAN 793 [facility] [address] [address] 11/01/2025 1:30 PM EST Office Visit [facility] C[facility] [address] [place] [address] Yaneth Ugarte MD [address] [place] [address] documented as of this encounter Visit Diagnoses Not on filedocumented in this encounter Care Teams Snow Removing Supervisor Relationship Specialty Start Date End Date Juarez Griffin MD 1210 [facility] [address] [place] [address] PCP - General Internal Medicine 05/30/23 documented as of this encounter
--- OUTSIDE RECORDS SUMMARY | 2025-05-23 19:16 | XMS_ITS | Encounter Summary ---
Author Organization [facility] Address [address] [place] [address] Care Team Providers Care Contact Lens Edge Buffer Name Role Phone Juarez Griffin MD Primary Care Provider [phone] Encounter Details Date Type Department Care Team (Latest Contact Info) Description 05/03/2025 Travel Social History Tobacco Use Types Packs/Day Years Used Date Smoking Tobacco: Never Passive Smoke Exposure: Never Smokeless Tobacco: Never Alcohol Use Standard Drinks/Week Comments Not Currently 0 (1 standard drink = 0.6 oz pur e alcohol) Maybe 3 drinks annually [facility] Utilities Answer Date Recorded In the past 12 months has [employer] electric, gas, oil, or water [employer] threatened to shut off services in your [...] and heating? Not hard at all 04/16/2024 [facility] [place] of Occupat ional Health - Occupational Stress [...] or training? Not on file Preferred Language Moldovan 02/25/2025 PHQ-2 Answer Date Recorded Retired PHQ-9: [...] Info) Description 06/15/2025 8:40 AM EDT Telemedicine [facility] UROLOGY 7[address] [facility] [address] [address] Teressa Finley, PIT CRANE OPERATOR 793 [facility] [address] [address] 07/01/2025 1:00 PM EDT Appointment [facility] ULTRASOUND AT [place] [address] [place] [address] 07/01/2025 2:00 PM EDT Appointment [facility] [address] AT [place] [address] [place] [address] 07/06/2025 1:00 PM EDT Office Visit [facility] [address] [facility] [address] [address] Teressa Finley, [facility] 793 [facility] [address] [address] 11/01/2025 1:30 PM EST Office Visit [facility] CARDIOLOGY [address] [place] [address] Yaneth Ugarte MD [address] [place] [address] documented as of this encounter Visit Diagnoses Not on filedocumented in this encounter Care Teams Contact Lens Edge Buffer Relationship Specialty Start Date End Date Juarez Griffin MD 1210 [facility] [address] [facility] [address] [place] [address] PCP - General Internal Medicine 05/30/23 documented as of this encounter
--- OUTSIDE RECORDS SUMMARY | 2025-05-23 19:16 | XMS_ITS | Data Portability ---
Author Organization [facility] ABHAY MejiasS [facility] CLOSED Address [address] [place] [address] Assessment No assessment recorded. Plan of Treatment Reminders Order Date Submit Date Provider Last Modified By Organization Details Last Modified Time Details Appointments None recorded. Lab None recorded. Referral aquatic therapy referral 2017 018 2 Not available 8 11:14:18 cognitive behavioral therapy referral 2017 018 [email or web address] 2 [employer] [facility], [address] [facility], [facility] [address], [place], [address], 8 11:14:19 occupationa l therapist referral 2017 018 [email or web address] 2 Not available 8 11:14:17 Procedures None recorded. Surgeries None recorded. Imaging None recorded. Medication Orders None recorded. Patient TargetsNo targets recorded. Patient Instructions Encounter Date Encounter Id Patient Instructions Last Modified By Organization Details Last Modified Time 08/13/2018 [id number] learning about healthy weight Not available 08/13/2018 [...] Name and Address Organization Details Recorded Time [id number] aspirin medicatio n Not available Not available Not available 08/13/2018 [id number] RxNorm Melinda Hudson [facility] 8 10:01:54 Medications Name Sig [...] Address Organization Details Last Updated DateTime 8 775329. 12 g 48.2 kg/m2 160.02 cm 18 /min 61 /min 132/96 mm[Hg] Melinda Hudson [facility] 8 10:06:40 Social History Question Answer Notes LastModified by Organizat ion Details LastModified Time Tobacco Smoking Status Never Smoker Melinda Hudson [facility] 08/13/2018 10:02:03 What Was The Date Of Your Most Recent Tobacco Screening? 08/13/2018 Information n ot available 12/15/2019 Sex: Unknown Functional Status None recorded. Mental Status None recorded. Family History Relationship Description Onset Age of this Age Resolved Age Notes LastModified by Organization Details LastModified Time Father No current problems or disability [email or web address] Not available 08/13 10:02:01 Mother No current [...] SNOMED-CT Code Diagnosis ICD10 Code Diagnosis Note [id number] CLIFF BARBER MD [facility] [address] [place] [address] 08/13/2018 09:13:44 08/13/2018 10:48:47 Pain of multiple joints 98445734 M25.50 she has clinical features of Dixon OA. no features of an inflammato ry arthritis noted. no features of rheumatoid noted. 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 would suggest to avoid steroids and start OT as stated below. she can RTC with me as prn. Fibromyalgia 668183109 M 79.7 she has clinical features suggestive [...] OT to help with the ROM and finish off operator. 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 Health Concerns Section Related Observation LastModified by Organization Detai ls LastModified Time None Recorded Concern Status LastModified by Organization Details LastModified Time None Recorded Advance Directives Directive None Recorded Payers Insurance Date Sequence Insurance Name Policy Number Policy Valdivia Covered Member ID Valdivia Member ID Guarantor Name 02/03/2024 1 [facility] (MEDICAID HMO) [facility] [id number] [facility] 01/24/2024 1 [place] - FFS/TRADITIO NAL [facility] [id number] [facility] 02/04/2024 1 [facility] (MEDICAID HMO) [facility] [id number] [facility] 01/31/2024 1 [facility] (PPO) [id number] [facility] [id number] [facility] Notes Date Note Type Note Provider Name and Address Organization Details Recorded Time 08/13/2018 text/html ROS as noted in the HPI seen as a new patient. Followed by [...] and a normal TSH. CLIFF BARBER MD [facility], [place], [address], [facility] 08/13/2018 17:00:47 OBGyn Episode No OBEpisode recorded.
--- NOTE | 2025-05-23 19:17 | HMH.EDGENADL ---
Discharge Plan Disposition Patient Disposition: Home, Self-Care Prescriptions Prescriptions: No Action spironolactone [Aldactone] 50 mg tablet 50 mg PO DAILY Mounjaro 7.5 mg/0.5 mL pen injector 7.5 mg SQ WEEKLY Qty: 2 0RF (DME) OneTouch Verio test strips Strip See Rx Instructions .Route Qty: 200 5RF Rx Instructions: As directed omeprazole 20 mg capsule,delayed release(DR/EC) 20 mg PO DAILY glipizide 2.5 mg tablet 2.5 mg PO BID Qty: 60 2RF Linzess 290 mcg capsule 290 mcg PO DAILY Qty: 30 2RF pravastatin 40 mg tablet 40 mg PO HS Qty: 90 1RF sennosides [senna] 8.6 mg tablet 8.6 mg PO BID PRN (Reason: constipation) Qty: 30 0RF oxycodone 5 mg tablet 5 mg PO Q8H PRN (Reason: pain) Qty: 60 0RF metformin 500 mg tablet 500 mg PO BID Qty: 180 1RF Rx Instructions: TAKE ONE TABLET BY MOUTH TWICE DAILY ibuprofen 800 mg tablet 800 mg PO TID PRN (Reason: Pain) Qty: 90 2RF Rx Instructions: TAKE ONE TABLET BY MOUTH THREE TIMES DAILY NEEDED WITH FOOD ascorbic acid (vitamin C) [Vitamin C] 500 mg tablet 500 mg PO BID Qty: 180 1RF Rx Instructions: TAKE ONE TABLET BY MOUTH TWICE DAILY Entresto 24-26 mg tablet 1 tab PO BID Qty: 180 1RF promethazine 12.5 mg tablet 12.5 mg PO Q8 PRN (Reason: Nausea) Qty: 20 1RF montelukast 10 mg tablet See Rx Instructions .ROUTE .COMPLEX Qty: 30 5RF Dose Instruction: TAKE ONE TABLET BY MOUTH EVERY DAY AT BEDTIME FOR ASTHMA Rx Instructions: TAKE ONE TABLET BY MOUTH EVERY DAY AT BEDTIME FOR ASTHMA Trelegy Ellipta 100-62.5-25 mcg blister with device See Rx Instructions .ROUTE .COMPLEX Qty: 60 2RF Dose Instruction: INHALE 1 PUFF BY MOUTH EVERY DAY - RINSE MOUTH AFTER USE - Rx Instructions: INHALE 1 PUFF BY MOUTH EVERY DAY - RINSE MOUTH AFTER USE - Mounjaro 5 mg/0.5 mL pen injector 5 mg SQ WEEKLY Qty: 2 0RF tramadol 50 mg tablet 50 mg PO Q6H PRN (Reason: pain) Qty: 120 0RF cholecalciferol (vitamin D3) 125 mcg (5,000 unit) capsule 5,000 unit PO Q48H ketorolac 10 mg tablet 10 mg PO Q6H PRN (Reason: pain) 5 Days Qty: 20 0RF bumetanide 2 mg tablet 2 mg PO DAILY calcium 500 mg Tablet 2,000 mg PO QID ondansetron HCl 4 mg Tablet 4 mg PO Q6H albuterol sulfate 90 mcg/actuation Hfa Aerosol Inhaler 2 puff INHALATION QID PRN (Reason: Breathing Problems) ertapenem 1 gram Recon Soln 1 g IV Q24H 8 Days Qty: 0 0RF nebivolol 5 MG tablet 5 mg PO DAILY cetirizine [Zyrtec] 10 mg Tablet 10 mg PO DAILY Referrals Follow up/Referrals: Juarez Griffin MD [Primary Care Provider, Medical] - See instructions Activity Restrictions/Add. Instructions Additional Instructions/Restrictions: You had a very small only a few millimeter wound dehiscence that appears to only be a few millimeters in depth with no active purulent or pus drainage. There is also no pathologic redness surrounding this or any clinical evidence of an obvious infection. I recommend you put antibiotic ointment on this and a Band-Aid and clean it with soap and water daily until it is closed up otherwise he may follow-up with your surgeon back with your primary care doctor return here if it gets any worse. Clinical Impressions Clinical Impression: Wound dehiscence Print Language Print Language: Yemeni Discharge ED Provider: Jean Jacobsen General Adult HPI General Stated complaint: kidney wound has opened on her back Time Seen by Provider: 05/23/25 19:11 History of Present Illness HPI narrative: Patient is a 50-year-old female concerned today for a postoperative wound dehiscence and infection. She had a staghorn calculus surgery done 7 weeks ago states that the wound had been normally healing and today it broke up and the significant other that she has here with was concerned that there may be some purulent/pus drainage from it. She denies any significant pain any fevers or chills any systemic signs or symptoms of illness etc. Related Data Home Medications ?Medication ?Instructions ?Recorded ?Confirmed nebivolol 5 mg tablet 5 mg PO DAILY 12/21/21 05/19/25 spironolactone 50 mg tablet 50 mg PO DAILY 03/30/22 05/19/25 (Aldactone) omeprazole 20 mg capsule,delayed 20 mg PO DAILY 04/24/22 05/19/25 release cetirizine 10 mg tablet (Zyrtec) 10 mg PO DAILY 02/06/24 05/19/25 cholecalciferol (vitamin D3) 125 5,000 unit PO Q48H 01/27/25 05/19/25 mcg (5,000 unit) capsule albuterol sulfate 90 mcg/actuation 2 puff inhalation QID PRN 03/12/25 05/19/25 aerosol inhaler Breathing Problems bumetanide 2 mg tablet 2 mg PO DAILY 03/12/25 05/19/25 calcium 500 mg tablet 2,000 mg PO QID 03/12/25 05/19/25 ondansetron HCl 4 mg tablet 4 mg PO Q6H 03/12/25 05/19/25 Previous Rx's ?Medication ?Instructions ?Recorded pravastatin 40 mg tablet 40 mg PO HS #90 tabs 11/11/24 sennosides 8.6 mg tablet (senna) 8.6 mg PO BID PRN constipation #30 02/03/25 tabs ketorolac 10 mg tablet 10 mg PO Q6H PRN pain 5 days #20 02/05/25 tabs oxycodone 5 mg tablet 5 mg PO Q8H PRN pain #60 tabs 02/19/25 ibuprofen 800 mg tablet 800 mg PO TID PRN Pain #90 tabs 02/26/25 metformin 500 mg tablet 500 mg PO BID #180 tabs 02/26/25 ertapenem 1 gram solution for 1 g IV Q24H 8 days #0 ea 03/14/25 injection glipizide 2.5 mg tablet 2.5 mg PO BID #60 tabs 03/17/25 linaclotide 290 mcg capsule 290 mcg PO DAILY For constipation 03/17/25 (Linzess) #30 caps ascorbic acid (vitamin C) 500 mg 500 mg PO BID #180 tabs 04/05/25 tablet (Vitamin C) sacubitril 24 mg-valsartan 26 mg 1 tab PO BID #180 tabs 04/05/25 tablet (Entresto) promethazine 12.5 mg tablet 12.5 mg PO Q8 PRN Nausea #20 tabs 04/20/25 fluticasone fur. 100 mcg-umeclid See Rx Instructions .Route 05/06/25 62.5 mcg-vilant 25 mcg .COMPLEX #60 blisters inhalat.powder (Trelegy Ellipta) montelukast 10 mg tablet See Rx Instructions .Route 05/06/25 .COMPLEX #30 tabs tirzepatide 5 mg/0.5 mL 5 mg (0.5 mL) SQ WEEKLY #2 mL 05/12/25 subcutaneous pen injector (Mounjaro) tramadol 50 mg tablet 50 mg PO Q6H PRN pain #120 tabs 05/12/25 blood sugar diagnostic (OneTouch #200 ea 05/19/25 Verio test strips) tirzepatide 7.5 mg/0.5 mL 7.5 mg (0.5 mL) SQ WEEKLY #2 mL 05/19/25 subcutaneous pen injector (Mounjaro) Allergies Allergy/AdvReac Type Severity Reaction Status Date / Time aspirin Allergy Severe S-DIFF. Verified 05/19/25 14:12 BREATHING bee venom protein (honey bee) Allergy Severe Anaphylaxis Verified 05/19/25 14:12 Bleach (Sodium Hypochlorite) Allergy Severe diff. Verified 05/19/25 14:12 breathing, dizzy amoxicillin (From Augmentin) Allergy Mild Unknown Verified 05/19/25 14:12 allergy reaction clavulanic acid (From Allergy Mild Unknown Verified 05/19/25 14:12 Augmentin) allergy reaction fluconazole (From Diflucan) Allergy Mild Unknown Verified 05/19/25 14:12 allergy reaction levofloxacin (From Levaquin) Allergy Difficulty Verified 05/19/25 14:12 Breathing pneumococcal vaccine Allergy Unknown Verified 05/19/25 14:12 allergy reaction sulfamethoxazole (From Allergy Unknown Verified 05/19/25 14:12 Bactrim) allergy reaction trimethoprim (From Bactrim) Allergy Unknown Verified 05/19/25 14:12 allergy reaction sucralose (From SUCRALOSE AdvReac Severe breathing Verified 05/19/25 14:12 (FOOD/DRUG)) problems PFSH PFS Disclaimer: The information contained in this section may have been updated after the patient was seen, as this information can be updated by other users. Medical History PIC line (peripherally inserted central catheter) removal Right nephrolithiasis UTI (urinary tract infection) Ovarian cyst Hematuria Vaginal pruritus History of nephrolithotomy with removal of calculi Hyperparathyroidism Status post removal of parathyroid adenoma Multiple thyroid nodules Asthma with exacerbation Syncopal episodes POSSIBLY DUE TO POTS Right flank pain Adnexal mass Septic shock Severe sepsis with acute organ dysfunction Cellulitis of right wrist Pneumonia Syncope Altered mental status Surgical History History of cardiac catheterization x2 History of loop recorder History of eye surgery History of cholecystectomy S/P right oophorectomy S/P hysterectomy History of tubal ligation Family History Other Alzheimer disease Bipolar 1 disorder Dementia Family history of diabetes mellitus type II Family history of myocardial infarction Lung cancer Lupus Social History Smoking Status: Never smoker second hand exposure: No alcohol intake: never substance use type: denies use current occupational status: unemployed and disabled Travel in the last 8 weeks?: None household members: spouse housing: house current occupational exposures/hazards: No caffeine: Yes Have you lived/traveled outside US in past 30 days?: No Contact w/someone who lives/traveled outside US past 30 days?: No Exposure to someone with infectious disease in past 14 days?: No Do you have a fever (greater than 100.4 F or 38 C)?: No Have you tested positive for COVID-19?: No Exposed to someone with COVID-19 in past 14 days?: No Do you have a sore throat?: No Do you have a cough?: No Do you have any weakness?: No Do you have any diarrhea?: No Are you experiencing any unusual bleeding?: No Do you have any muscle aches/pain?: No Do you have any abdominal pain?: No Are you experiencing loss of taste or smell?: No Other Medical History Have you received the Flu Vaccine for this season: No Have you received the Pneumonia Vaccine: Yes ROS Obtained: Yes All systems reviewed & no additional complaints except as documented Physical Exam General General appearance: alert Respiratory Respiratory exam: Present normal lung sounds bilaterally Cardiovascular Cardiovascular exam: Present regular rate Back Exam Back 1 view image:  1. There is a 1 cm postoperative wound that has no surrounding erythema on the lateral aspect there is a 2 mm area where the wound is dehisced I can see the base of a bloodless field without any purulent drainage there is some serosanguineous drainage it is only about a few millimeters in depth Neurological Exam Neurological exam: Present alert and oriented X3 Medical Decision Making Medical Records Screening: Per USPSTF and CDC recommendations, given the prevalence of disease in our region, it is our hospital?s policy to screen for HIV and viral Hepatitis for all patients aged 18 and over and those with ongoing risk factors. Harjinder Inquiry Pt receiving controlled substance: No Medical Decision Narrative: 50-year-old here with above history and physical. There is only a few millimeters of wound that has dehisced and it seems to only be a few millimeters in depth. It is possible that there was a pustule that they drained but I do not see any ongoing evidence of purulent drainage I did attempt to express drainage and was only able to get serosanguineous clear fluid out. No pathologic erythema surrounding this no signs or symptoms of systemic illness or a deeper infection. Does remain on the differential but are incredibly unlikely given how benign this looks. No CT imaging or labs indicated at the moment I have advised that she closely follow-up with her primary care doctor return with any high fevers or changes or worsening in her symptoms otherwise she may follow-up here if she is concerned as well. She will clean with soap and water keep topical antibiotic ointment on this and put a Band-Aid on this allowed to heal by secondary intention. Critical Care Critical Care Time Critical Care Time: No
--- OUTSIDE RECORDS SUMMARY | 2025-05-23 19:17 | XMS_ITS | Encounter Summary ---
[facility] Organization [facility] Address [address] [place] [address] Care Team Providers Care Shell Core And Molding Supervisor Name Role Phone Juarez Griffin MD Primary Care Provider [phone] Reason for Visit * Reason Onset Date Comments DR AMES-CLINICAL 03/15/2025 Encounter Details Date Type Department Care Team (Late st Contact Info) Description 03/15/2025 Telephone [facility] [address] [facility] [address] [address] Demarcus Ames MD [address] [address] [address] AMES-CLINICAL Social History Tobacco Use Types Packs/Day Years Used Date Smoking Tobacco: Never Passive Smoke Exposure: Never Smokeless Tobacco: Never Alcohol Use Standard Drinks/Week Comments Not Currently 0 (1 standard drink = 0.6 oz pur e alcohol) Maybe 3 drinks annually [facility] Utilities Answer Date Recorded In the past 12 months has [employer], oil, or water [employer] threatened to shut off services in your [...] and heating? Not hard at all 04/16/[address] [facility] [place] of Occupat ional Health - Occupational Stress [...] or training? Not on file Preferred Language Ugandan 02/25/2025 PHQ-2 Answer Date Recorded Retired PHQ-9: [...] 9:18 AM EDT Cathy Curtis RN * Emmet Suicide Severity Rating Scale (Screener/Recent Self-Report) Question Answer Date of Assessment Author 6. Suicidal Behavior (Lifetime) No 9:18 AM EDT Vandana Curtis RN documented as of this encounter Miscellaneous Notes * Telephone Encounter - Demarcus Ames MD - 03/16/2025 10:29 AM EDT Would it be possible to move the ureteroscopy on the to a different day and put Ms. Valdez on that day? * Telephone Encounter - Charlene Pereira RegSched Rep - 03/15/2025 11:32 AM EDT Provider: DR AMES Caller: Lissy Valdez Relationship to Patient: Self Reason for Call: PT CALLED TO SEE IF SURGERY CAN BE MOVED UP SAMINA. PT WAS SEEN IN ED AT [facility] 03/11/25 - PT HAD ANOTHER KIDNEY INFECTION RELATED TO THE STAGHORN STONE. ER ADVISED PT TO HAVE STONE REMOVED SAMINA, THEY FEEL SHE MAY BE BUILDING UP A RESISTANCE TO ANTIBIOTIC. PLEASE CALL TO DISCUSS, UNABLE TO PULL MED RECS IN CARE EVERYWHERE. When was the patient last seen: 02/11/25 When did it start: MID LAST WEEK Where is it located: KIDNEY, GROIN, LOWER STOMACH Characteristics of symptom/severity: 7 Timing- Is it constant or intermittent: CONSTANT What makes it worse: MOVEMENT, TAPPING ON BACK, USING RESTROOM What makes it better: NA What therapies/medications have you tried: ER GAVE ANTIBIOTIC THROUGH PICKLINE - INVANZ (ON DAY 3) documented in this encounter Plan of Treatment Upcoming Encounters Date Type Department Care Team (Late st Contact Info) Description 06/15/2025 8:40 AM EDT Telemedicine [facility] UROLOGY [address] [facility] [address] [address] Teressa Finley, REMOTE RECRUITER 793 [facility] [address] [address] 07/01/2025 1:00 PM EDT Appointment [facility] ULTRASOUND AT [place] [address] [place] [address] 07/01/2025 2:00 PM EDT Appointment [facility] CT AT [place] [address] [place] [address] 07/06/2025 1:00 PM EDT Office Visit [facility] [address] [facility] [address] [address] Teressa Finley, REMOTE RECRUITER 793 [facility] [address] [address] 11/01/2025 1:30 PM EST Office Visit [facility] CARDIOLOGY [address] [place] [address] Yaneth Ugarte MD [address] [place] [address] documented as of this encounter Visit Diagnoses Not on filedocumented in this encounter Care Teams Shell Core And Molding Supervisor Relationship Specialty Start Date End Date Juarez Griffin MD [facility]0 [place] [address] [place] [address] PCP - General Internal Medicine 05/30/23 documented as of this encounter
--- OUTSIDE RECORDS SUMMARY | 2025-05-23 19:17 | XMS_ITS | Referral Summary ---
Author Organization [facility] ([place], [place], [place], [place]) Address [address] [place] [address] Care Team Providers Care Aluminum Pourer Name Role Phone Juarez Griffin MD Primary Care Provider [phone] Allergies Active Allergy Reactions Criticality Noted Date [...] Do you speak a language other than [facility] at [facility]? No 12/27/2023 Do you [...] on file Medical Devices Implanted Type Area Display Designer Outside Device Identifier Shelf Expiration Date Model / Serial / Lot Loop Recorder LOOP RECORDER Left: Chest Insurance [facility] [place] [id number] [facility] Advance Directives For more information, please contact: [phone] * Full Code (Latest Code Status on File) Date Activated Date Inactivated Comments 12/27/2023 3:21 AM 12/30/2023 2:53 PM -Attempt Resus citation if person has no pulse and is not breathing. -If no pulse or not breathing attempt CPR/CODE. -Call Rapid Response if patient is in distress. Care Teams Aluminum Pourer Relationship Specialty Start Date End Date Juarez Griffin MD [address] [place] [id number] PCP - General General Internal Medicine 12/30/23
--- OUTSIDE RECORDS SUMMARY | 2025-05-23 19:17 | XMS_ITS | Clinical Summary ---
Author Organization [facility] Address [address] [facility] [address] [place] [address] Phone Care Team Providers Care Decator Operator Name Role Phone Zofia Perkins Unavailable Unavailable Conditions or Problems Problem Name Problem Code Onset Date Status Entry Date Provider Comment Standard Description Annotate Acute Pyelonephritis 31767075 (SNOMED CT) 01/07 Active 01/07 Malina Ames Acute pyelonephritis Obstructive uropathy with infection N13.6 (ICD-10-C M) 01/07 Active 01/07 Malina Ames Pyonephrosis Neutrophilic leukemoid reaction D72.823 (ICD-10-C M) 01/07 Active 01/07 Malina Ames Leukemoid reaction COPD 76166622 (SNOMED CT) 01/07 Active 01/07 Malina Ames Chronic obstructive pulmonary disease Morbid obesity due to excess calories E66.01 (ICD-10-C M) 01/07 Active 01/07 Malina Ames Morbid (severe) obesity due to excess calories DM Type II E11.9 (ICD-10-C M) 01/07 Active 01/07 Malina Ames Type 2 diabetes mellitus without complications Benign hypertensive heart disease with chronic diastolic heart failure (I50.32) 05478674 (SNOMED CT) 01/07 Active 01/07 Malina Ames Benign hypertension Medications Medication Instructions Start Date Stop Date Generic Name [facility] Provider FOSFOMYCIN TROMETHAMINE 3 GM PACK Take 1 packet by mouth as directed take 1 packet every 3-4 days (2 times weekly) fosfomycin tromethamine 88174339015 Calvin Villarreal MD PREDNISONE 20 MG TABS prednisone 11296019469 Milly Jabierbrianne VITAMIN C 500 MG CAPS twice a day ascorbic acid (vitamin c) 35546387427 Milly Mosquera HIPREX 1 GM TABS Take 1 tablet by mouth twice a day 02/18 methenamine hippurate 57533298719 Calvin Villarreal MD INDOMETHACIN 50 MG CAPS Take 1 capsule by mouth three times a day indomethacin 97346541447 iLnda De Leon SUCRALFATE 1 GM TABS Take 1 tablet by mouth four times a day sucralfate 42213313749 Linda De Leon BUMETANIDE 2 MG TABS Take 1 tablet by mouth twice a day bumetanide 62796637529 Linda De Leon PRAVASTATIN SODIUM 10 MG TABS Take 1 tablet by mouth every night pravastatin 18467632427 Linda De Leon ENTRESTO 24-26 MG TABS Take 1 tablet by mouth twice a day sacubitril-valsa rtan 92883866737 Linda De Leon VENTOLIN HFA 108 (90 Base) MCG/ACT AERS Inhale 2 puff by mouth every four to six hours as needed albuterol sulfate 49567066190 Linda De Leon ADVAIR DISKUS 250-50 MCG/ACT AEPB Inhale 1 puff twice a day fluticasone propion-salmeter ol 23971793930 Linda De Leon OMEPRAZOLE 20 MG CPDR Take 1 capsule by mouth once a day omeprazole 60768437316 Linda De Leon METFORMIN HCL 500 MG TABS Take 1 tablet by mouth twice a day metformin 51661849028 Linda De Leon FARXIGA 10 MG TABS Take 10 mg by mouth once a day dapagliflozin propanediol 40743804177 Linda De Leon IBUPROFEN (IBUPROFEN) 800 MG TABS Take 1 tablet by mouth every six hours as needed IBUPROFEN Linda De Leon TIZANIDINE HCL 4 MG TABS Take 1 tablet by mouth as needed tizanidine 01327589242 Linda De Leon TRAMADOL HCL 50 MG TABS every twelve hours tramadol 74411478956 Linda De Leon NITROGLYCERIN 0.[address] 1 tablet under tongue as needed nitroglycerin 90071570151 Linda Moises ONDANSETRON HCL 4 MG TABS Take 1 tablet by mouth every eight hours as needed ondansetron hcl 12623952797 Linda Moises SPIRONOLACTONE 50 MG TABS Take 1 tablet by mouth once a day spironolactone 28776790341 Linda De Leon SITagliptin (JANUVIA) 25 MG tablet Take 1 tablet by mouth once a day JANOLIVER De Leon NEBIVOLOL HCL 5 MG TABS Take 1 tablet by mouth once a day nebivolol 56304793041 Jaizeltyree De Leon GLYXAMBI 10-5 MG TABS Take 1 tablet by mouth once a day empagliflozin-li nagliptin 26033766845 Linda De Leon VENTOLIN HFA 108 (90 Base) MCG/ACT AERS INHALE TWO PUFFS BY MOUTH EVERY 4 TO 6 HOURS NEEDED 01/19 albuterol sulfate 07352660989 QIE qieuser TRAMADOL HCL 50 MG TABS Every 12 (Twelve) Hours. 01/19 tramadol 87995816290 QIE qieuser TIZANIDINE HCL 4 MG TABS Take 1 tablet by mouth As Needed. 01/19 tizanidine 93377763829 QIE qieuser SUCRALFATE 1 GM TABS Take 1 tablet by mouth 4 (Four) Times a Day. 01/19 sucralfate 99998155094 QIE qieuser SPIRONOLACTONE 50 MG TABS TAKE ONE TABLET BY MOUTH EVERY DAY 01/19 spironolactone 40499052066 QIE qieuser SITagliptin (JANUVIA) 25 MG tablet Take 1 tablet by mouth Daily. 01/19 JANUVIA QIE qieuser PRAVASTATIN SODIUM 10 MG TABS TAKE ONE TABLET BY MOUTH EVERY DAY AT BEDTIME 01/19 pravastatin 11200959222 QIE qieuser ONDANSETRON HCL 4 MG TABS Take 1 tablet by mouth Every 8 (Eight) Hours As Needed. 04/27 ondansetron hcl 80399050463 QIE qieuser OMEPRAZOLE 20 MG CPDR TAKE ONE CAPSULE BY MOUTH EVERY DAY 04/27 omeprazole 97102459502 QIE qieuser O2 (OXYGEN) 2 L by Alternating Nares route Every Night. OXYGEN QIE qieuser NITROGLYCERIN 0.[address] 1 tablet under the tongue As Needed for Chest Pain. 01/19 nitroglycerin 06417418007 QIE qieuser NEBIVOLOL HCL 5 MG TABS TAKE ONE TABLET BY MOUTH EVERY DAY 01/19 nebivolol 76083101642 QIE qieuser METFORMIN HCL 500 MG TABS Take 1 tablet by mouth 2 (Two) Times a Day. 01/19 metformin 74708050815 QIE qieuser IPRATROPIUM-ALBUT MIK 0.5-2.5 (3) MG/3ML SOLN ipratropium-albu terol 88467591577 QIE qieuser INDOMETHACIN 50 MG CAPS Take 1 capsule by mouth 3 (Three) Times a Day With Meals. 01/19 indomethacin 72253630224 QIE qieuser IBUPROFEN (IBUPROFEN) 800 MG TABS Take 1 tablet by mouth Every 6 (Six) Hours As Needed. 01/19 IBUPROFEN QIE qieuser ENTRESTO 24-26 MG TABS TAKE ONE TABLET BY MOUTH TWICE DAILY 01/19 sacubitril-valsa rtan 64979431101 QIE qieuser GLYXAMBI 10-5 MG TABS Take 1 tablet by mouth Daily. 01/19 empagliflozin-li nagliptin 17951566947 QIE qieuser FARXIGA 10 MG TABS Take 10 mg by mouth Daily. 01/19 dapagliflozin propanediol 91248095241 QIE qieuser BUMETANIDE 2 MG TABS TAKE ONE TABLET BY MOUTH TWICE DAILY 01/19 bumetanide 60740905211 QIE qieuser ADVAIR DISKUS 250-50 MCG/ACT AEPB Inhale 1 puff 2 (Two) Times a Day. 01/19 fluticasone propion-salmeter ol 96633792765 QIE qieuser CEFUROXIME AXETIL 500 MG TABS 1 tablet by mouth twice a day cefuroxime axetil 80607062208 Calvin Villarreal MD Medications Administered No information available. 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
--- OUTSIDE RECORDS SUMMARY | 2025-05-23 19:17 | XMS_ITS | Encounter Summary ---
[facility] Address [address] [place] [address] Care Team Providers Care Model Artists' Name Role Phone Juarez Griffin MD Primary Care Provider [phone] Reason for Visit * Reason Onset Date Comments DR AMES - CLINICAL 04/01/2025 Encounter Details Date Type Department Care Team (Late st Contact Info) Description 04/01/2025 Telephone [facility] [address] [facility] [address] [address] Demarcus Ames MD [address] [address] [address] AMES - CLINICAL Social History Tobacco Use Types Packs/Day Years Used Date Smoking Tobacco: Never Passive Smoke Exposure: Never Smokeless Tobacco: Never Alcohol Use Standard Drinks/Week Comments Not Currently 0 (1 standard drink = 0.6 oz pur e alcohol) Maybe 3 drinks annually [facility] Utilities Answer Date Recorded In the past 12 months has [employer], [employer], oil, or water [employer] threatened to shut off services in your [...] and heating? Not hard at all 04/16/2024 [facility] [place] of Occupat ional Health - Occupational Stress [...] 05/2025 Potentially Unsafe Housing Conditions Not on alndon e 03/04/2025 Family and Community Support Answer [...] or training? Not on file Preferred Language Icelandic 02/25/2025 PHQ-2 Answer Date Recorded Retired PHQ-9: [...] on file documented as of this encounter Miscellaneous Notes * Telephone Encounter - Emily Mendez CMA - 04/02/2025 1:37 PM EDT Spoke with patient clarified questions about pyridium and discussed the pain is normal with stent, pt not feeling as bad now as on 04/01 LYNNE Christianson * Telephone Encounter - Ashleigh Crowell - 04/01/2025 10:15 AM EDT Provider: DR LESLIE Nortoner: LISSY VALDEZ Relationship to Patient:SELF Reason for Call: HAS QUESTIONS ABOUT PYRIDIUM. SHE WOULD LIKE A CALL BACK SAMINA. HAD SURGERY YESTERDAY HAVING SIGNIFICANT GROIN AND URINARY PAIN. DOES NOT WANT TO TAKE THE OXYCODONE UNLESS TOTALLY NECESSARY. PLEASE REACH OUT TO DISCUSS BEST NUMBER IS CELL [phone] documented in this encounter Plan of Treatment Upcoming Encounters Date Type Department Care Team (Late st Contact Info) Description 06/15/2025 8:40 AM EDT Telemedicine [facility] [address] [facility] [address] [place] [phone] Teressa Finley, IMAGING ASSISTANT [address] [facility] [address] [place] [address] 07/01/2025 1:00 PM EDT Appointment [facility] [place] [address] [place] [address] 07/01/2025 2:00 PM EDT Appointment [facility] [place] [address] [place] [address] 07/06/2025 1:00 PM EDT Office Visit [facility] [address] [facility] [address] [place] [address] Teressa Finley APRN [address] 3 [facility] [address] [place] [address] 11/01/2025 1:30 PM EST Office Visit [facility] [address] [place] [address] Yaneth Ugarte MD [address] [place] [address] documented as of this encounter Visit Diagnoses Not on filedocumented in this encounter Care Teams Model Artists' Relationship Specialty Start Date End Date Juarez Griffin MD [address] [facility] [address] [place] [address] PCP - General Internal Medicine 05/30/23 documented as of this encounter
--- OUTSIDE RECORDS SUMMARY | 2025-05-23 19:17 | XMS_ITS | Encounter Summary ---
[facility] Address [address] [place] [address] Care Team Providers Care Slip Cover Seamstress Name Role Phone Juarez Griffin MD Primary Care Provider [phone] Encounter Details Date Type Department Care Team (Late st Contact Info) Description 05/11/2025 Telephone [facility] [address] [place] [address] Shell Diaz RegSched Rep Social History Tobacco Use Types Packs/Day Years Used Date Smoking Tobacco: Never Passive Smoke Exposure: Never Smokeless Tobacco: Never Alcohol Use Standard Drinks/Week Comments Not Currently 0 (1 standard drink = 0.6 oz pur e alcohol) Maybe 3 drinks annually [facility] Utilities Answer Date Recorded In the past 12 months has [employer], gas, oil, or water company threatened [...] and heating? Not hard at all 04/16/2024 [facility] [place] of Occupat ional Health - Occupational Stress [...] or training? Not on file Preferred Language Congolese 02/25/2025 PHQ-2 Answer Date Recorded Retired PHQ-9: [...] Info) Description 06/15/2025 8:40 AM EDT Telemedicine [facility] [address] [facility] M[facility] [address] [address] Teressa Finley APRN [address] [place] [address] [address] [address] 07/01/2025 1:00 PM EDT Appointment [facility] ULTRASOUND AT [address] [address] 07/01/2025 2:00 PM EDT Appointment [facility] CT AT [address] [address] 07/06/2025 1:00 PM EDT Office Visit [facility] [address] [facility] MOB [address] [address] Teressa Finley APRN [address] [place] [address] [address] [address] 11/01/2025 1:30 PM EST Office Visit [facility] [address] [place] [address] Yaneth Ugarte MD [address] [place] [address] documented as of this encounter Visit Diagnoses Not on filedocumented in this encounter Care Teams Slip Cover Seamstress Relationship Specialty Start Date End Date Juarez Griffin MD [address] [place] [facility] [address] [place] [address] PCP - General Internal Medicine 05/30/23 documented as of this encounter
--- OUTSIDE RECORDS SUMMARY | 2025-05-23 19:17 | XMS_ITS | Encounter Summary ---
[facility] Organization [facility] Address [address] [place] [address] Care Team Providers Care Material Stockkeeper Yard Name Role Phone Juarez Griffin MD Primary Care Provider [phone] Reason for Visit * Reason Onset Date Comments DR AMES - POST OP FOLLOW UP 03/31/2025 Encounter Details Date Type Department Care Team (Late st Contact Info) Description 03/31/2025 Telephone [facility] [address] [facility] [address] [address] Demarcus Ames MD [address] [address] [address] AMES - POST OP FOLLOW UP Social History Tobacco Use Types Packs/Day Years Used Date Smoking Tobacco: Never Passive Smoke Exposure: Never Smokeless Tobacco: Never Alcohol Use Standard Drinks/Week Comments Not Currently 0 (1 standard drink = 0.6 oz pur e alcohol) Maybe [address] [facility] Utilities Answer Date Recorded In the past 12 months has [employer], gas, oil, or water [employer] threatened to shut off services in your [...] and heating? Not hard at all 04/16/2024 [facility] [place] [facility] - Occupational Stress Questionnaire Answer Date [...] or training? Not on file Preferred Language Azeri 02/25/2025 PHQ-2 Answer Date Recorded Retired PHQ-9: [...] 9:18 AM EDT Cathy Curtis RN * Evans Suicide Severity Rating Scale (Screener/Recent Self-Report) Question Answer Date of Assessment Author 6. Suicidal Behavior (Lifetime) No 9:18 AM EDT Vandana Curtis RN documented as of this encounter Miscellaneous Notes * Telephone Encounter - Emily eMndez CMA - 03/31/2025 2:54 PM EDT Pt scheduled with front desk attendant JUAN MIGUEL Christianson * Telephone Encounter - Malina Clancy RegSched Rep - 03/31/2025 1:57 PM EDT Hub staff attempted to follow warm transfer process and was unsuccessful Caller: SOLEDAD Relationship to patient: NURSE Patient is needing: CALLED TO SCHEDULE 1 WEEK POST OP FOLLOW UP WITH STENT REMOVAL WITH DR AMES. PLEASE CALL PT TO SCHEDULE. THANK YOU. documented in this encounter Plan of Treatment Upcoming Encounters Date Type Department Care Team (Late st Contact Info) Description 06/15/2025 8:40 AM EDT Telemedicine [facility] [address] [facility] [address] [address] Teressa Finley, SURGICAL ATTENDANT 793 [facility] [address] [address] 07/01/2025 1:00 PM EDT Appointment [facility] AT [place] [address] [place] [address] 07/01/2025 2:00 PM EDT Appointment [facility] [place] [address] [place] [address] 07/06/2025 1:00 PM EDT Office Visit [facility] [address] [facility] [address] [address] Teressa Finley, SURGICAL ATTENDANT 793 [facility] [address] [address] 11/01/2025 1:30 PM EST Office Visit [facility] [address] [place] [address] Yaneth Ugarte MD [address] [place] [address] documented as of this encounter Visit Diagnoses Not on filedocumented in this encounter Care Teams Material Stockkeeper Yard Relationship Specialty Start Date End Date Juarez Griffin MD [address] [place] [facility] [address] [place] [address] PCP - General Internal Medicine 8/3/23 documented as of this encounter
--- OUTSIDE RECORDS SUMMARY | 2025-05-23 19:17 | XMS_ITS | Data Portability ---
Author Organization [place] [facility] [place] Alejandro ADMIN Address [address] [place] [address] Care Team Providers Care Antisqueak Worker Name Role Phone ZAHRAA BENAVIDES Primary Care Provider [phone] Assessment Encounter Date Assessment Date Assessment LastModified by Organization Details LastModified Time 08/07/2023 08/07/[address] scan images onto our system. Will review to determine the degree of stone burden bilaterally in the kidneys. Will also plan cystoscopy and pelvic exam in the office in the near future. [email or web address] Not available 08/07/2023 15:34:46 09/25/2023 09/25/2023 I [...] in 6 months with KUB and UA. [email or web address] Not available 09/25/2023 15:29:09 Plan of Treatment Reminders Order Date Submit Date Provider Last Modified By Organization Details Last Modified Time Details Appointments None recorded. Lab urinalysis, dipstick 2024 025 [email or web address] [facility] -105, [address], [place], [address], 5 14:18:52 CBC w/ diff 2024 025 [facility] (Registration ), [address], [place], [address], 5 16:11:55 CMP, serum or plasma 2024 025 [facility] (Registration ), [address], [place], [address], 5 15:39:03 ESR (erythrocyt e sedimentati on rate), blood [address] (Registration ), [address] [facility], [place], [address], 5 08:54:47 C-reactive protein, quantitativ e, serum or plasma [address] (Registration ), [address], [place], [address], 5 08:54:48 culture, urine 2024 025 HONOBIA [facility], [address], [place], [address], 5 19:09:52 urinalysis, dipstick 2022 023 [email or web address] [facility], [address] [facility], [address], [place], [address], 3 16:08:29 Referral None recorded. Procedures None [...] usal 7.7 - 58.5 Perfo rmed at: [facility] [address] [place] [address] 1268 Lab Direc tor: Los carson PhD, Phone : [phone] Not Available [facility] [address] [place], [address], 04/03/2023 10:13:10 04/02/20 23 04/03/2023 FSH FSH, serum 5.4 mIU/m L Adult Femal e: Folli cular phase 3.5 - 12.5 Ovula tion phase 4.7 - 21.5 Lutea l phase 1.7 - 7.7 Postm enopa usal 25.8 - 134.8 Perfo rmed at: [facility] [address] [place] [address] 1262 Lab [facility] tor: Los carson PhD, Phone : [phone] Not Available [facility] ([facility] [address] [facility] [facility], [place], [address], 04/03/2023 10:14:16 08/07/20 23 08/07/2023 urina lysis , dipst ick Leukocytes (reference range) trace Not Available [facility] [address] [facility] [address] [place] [address], [address], 08/07/2023 15:15:15 08/07/20 23 08/07/2023 urina lysis , dipst ick Nitrite (reference range:) negati ve Not Available [facility] [address] [facility] [address] [place] [address], [address], 08/07/2023 15:15:15 08/07/20 23 08/07/2023 urina lysis , dipst ick Urobilinogen (reference range) 0.2 Not Available [facility] [address] [place] [address] [address], [place], [address], 08/07/2023 15:15:15 08/07/20 23 08/07/2023 urina lysis , dipst ick Protein (reference range) negati ve Not Available [facility] [address], [place], [address], 08/07/2023 15:15:15 08/07/2008/07/2023 urina lysis , dipst ick pH (reference range 5-8.5) 6.0 Not Available [facility] [address], [place], [address], 08/07/2023 15:15:15 08/07/2008/07/2023 urina lysis , dipst ick Blood (reference range:) small Not Available [facility], [place], [address], 08/07/2023 15:15:15 08/07/20 23 08/07/2023 urina lysis , dipst ick Specific Dallas (reference range) 1.015 Not Available [address], [place], [address], 08/07/2023 15:15:15 08/07/20 23 08/07/2023 urina lysis , dipst ick Ketone (reference range) negati ve Not Available [address], [place], [address], 08/07/2023 15:15:15 08/07/20 23 08/07/2023 urina lysis , dipst ick Bilirubin (reference range) negati ve Not Available [address], [place], [address], 08/07/2023 15:15:15 08/07/20 23 08/07/2023 urina lysis , dipst ick Glucose (reference range) 250 Not Available [facility] [address] [facility] [address], [place], [address], 08/07/2023 15:15:15 08/07/20 23 08/07/2023 urina lysis , dipst ick Color (reference range: yellow-brown ) Yellow Not Available [facility] [address] [facility] [address], [place], [address], 08/07/2023 15:15:15 02/24/20 25 02/23/2025 CBC AUTO W DIFF WBC 11.3 K/uL 4.0-10 .5 high Not Available [facility] [address], [place], [address], 02/23/2025 15:02:28 02/24/20 25 02/23/2025 CBC AUTO W DIFF RBC 5.7 M/mm3 4.2-6. 4 Not Available [facility] [address] , [place], [address], 02/23/2025 15:02:28 02/24/20 25 02/23/2025 CBC AUTO W DIFF HGB 15.8 gm/dL 12.5-1 6.0 Not Available [facility]) [address] , [place], [address], 02/23/2025 15:02:28 02/24/20 25 02/23/2025 CBC AUTO W DIFF HCT 48.8 % 37.0-4 7.0 high Not Available [facility]) [address], [place], [address], 02/23/2025 15:02:28 02/24/20 25 02/23/2025 CBC AUTO W DIFF MCV 86.4 fL 78-100 Not Available [facility] [address], [place], [address], 02/23/2025 15:02:28 02/24/20 25 02/23/2025 CBC AUTO W DIFF MCH 28.0 pg 27-31 Not Available [facility] [address], [place], [address], 02/23/2025 15:02:28 02/24/20 25 02/23/2025 CBC AUTO W DIFF MCHC 32.4 g/dL 32-36 Not Available [facility] [address], [place], [address], 02/23/2025 15:02:28 02/24/20 25 02/23/2025 CBC AUTO W DIFF RDW 13.7 % 11.5-1 4.0 Not Available [facility] [address], [place], [address], 02/23/2025 15:02:28 02/24/20 25 02/23/2025 CBC AUTO W DIFF platelet count 380 K/uL 150-45 0 Not Available [facility] [address] , [place], [address], 02/23/2025 15:02:28 02/24/20 25 02/23/2025 CBC AUTO W DIFF MPV 10.3 fL 6-9.5 high Not Available [facility] [address], [place], [address], 02/23/2025 15:02:28 02/24/20 25 02/23/2025 CBC AUTO W DIFF neutrophil% 66.5 % 43-65 high Not Available [facility] ([facility] [address], [place], [address], 02/23/2025 15:02:28 02/24/20 25 02/23/2025 CBC AUTO W DIFF lymphocyte% 24.3 % 20.5-4 5.5 Not Available [facility] [address], [place], [address], 02/23/2025 15:02:28 02/24/20 25 02/23/2025 CBC AUTO W DIFF monocyte% 6.0 % 5.5-11 .7 Not Available [facility] [address] [facility], [place], [address], 02/23/2025 15:02:28 02/24/20 25 02/23/2025 CBC AUTO W DIFF eosinophil% 2.3 % 0.9-2. 9 Not Available [facility] [address] [place], [address], 02/23/2025 15:02:28 02/24/20 25 02/23/2025 CBC AUTO W DIFF basophil% 0.6 % 0.2-1. 0 Not Available [facility] [address] [place], [address], 02/23/2025 15:02:28 02/24/20 25 02/23/2025 CBC AUTO W DIFF immature granulocytes % 0.3 % 0.0-0. 8 Not Available [facility] [address] [place], [address], 02/23/2025 15:02:28 02/24/20 25 02/23/2025 CBC AUTO W DIFF nucleated red blood cells % 0.0 % Not Available [facility] [address] [place], [address], 02/23/2025 15:02:28 02/24/20 25 02/23/2025 CBC AUTO W DIFF neutrophil# 7.5 K/uL 2.2-4. 8 high Not Available [facility]) [address], [place], [address], 02/23/2025 15:02:28 02/24/20 25 02/23/2025 CBC AUTO W DIFF lymphocyte# 2.7 cell/ mcL 1.3-2. 9 Not Available [facility]) [address], [place], [address], 02/23/2025 15:02:28 02/24/20 25 02/23/2025 CBC AUTO W DIFF monocyte# 0.7 cell/ mcL 0.3-0. 8 Not Available [facility]) [address], [place], [address], 02/23/2025 15:02:28 02/24/20 25 02/23/2025 CBC AUTO W DIFF eosinophil# 0.3 cell/ mcL 0-0.2 high Not Available [facility]) [address], [place], [address], 02/23/2025 15:02:28 02/24/20 25 02/23/2025 CBC AUTO W DIFF basophil# 0.1 cell/ mcL 0.0-1. 0 Not Available [facility]) [address], [place], [address], 02/23/2025 15:02:28 02/24/20 25 02/23/2025 CBC AUTO W DIFF immature gramulocytes # 0.03 K/uL Not Available [facility] ([facility]) [address], [place], [address], 02/23/2025 15:02:28 02/24/20 25 02/23/2025 CBC AUTO W DIFF nucleated red blood cells # 0.00 K/uL Not Available [facility] ([facility]) [address], [place], [address], 02/23/2025 15:02:28 02/24/20 25 02/23/2025 CBC AUTO W DIFF manual differential NO Not Available [facility]) [address] , [place], [address], 02/23/2025 15:02:28 02/24/20 25 02/23/2025 COMP METAB OLIC PANEL sodium 138 mmol/ L 136-14 5 Not Available [facility]) [address] , [place], [address], 02/23/2025 15:39:03 02/24/20 25 02/23/2025 COMP METAB OLIC PANEL potassium 3.7 mmol/ L 3.6-5. 0 Not Available [facility] [address] , [place], [address], 02/23/2025 15:39:03 02/24/20 25 02/23/2025 COMP METAB OLIC PANEL chloride 98 mmol/ L 98-107 Not Available [facility]) [address] , [place], [address], 02/23/2025 15:39:03 02/24/20 25 02/23/2025 COMP METAB OLIC PANEL carbon dioxide 26.8 mmol/ L 21.0-3 2.0 Not Available [facility] [address] , [place], [address], 02/23/2025 15:39:03 02/24/20 25 02/23/2025 COMP METAB OLIC PANEL anion gap 16.9 Not Available [facility] ([facility]) [address] , [place], [address], 02/23/2025 15:39:03 02/24/20 25 02/23/2025 COMP METAB OLIC PANEL glucose 200 mg/dL 70-120 high Not Available [facility] ([facility]) [address], [place], [address], 02/23/2025 15:39:03 02/24/20 25 02/23/2025 COMP METAB OLIC PANEL BUN 12 mg/dL 7-18 Not Available [facility] ([facility]) [address], [place], [address], 02/23/2025 15:39:03 02/24/20 25 02/23/2025 COMP METAB OLIC PANEL creatinine 1.1 mg/dL 0.6-1. 3 Not Available [facility]) [address], [place], [address], 02/23/2025 15:39:03 02/24/20 25 02/23/2025 COMP METAB [...] Not Available [facility]) [address], [place], [address], 02/23/2025 15:39:03 02/24/20 25 02/23/2025 COMP METAB OLIC PANEL osmolality (calculated) 293 mOsm/ kg 275-30 1 OSMOL ALITY IS A CALCU LATIO N UTILI ZING THE SERUM /PLAS MA SODIU M, GLUCO SE AND UREA NITRO GEN (BUN) LEVEL S. FOR THE MOST ACCUR ATE RESUL T A MEASU RED SERUM OSMOL ALITY IS SUGGE STED. Not Available [facility] ([facility]) [address], [place], [address], 02/23/2025 15:39:03 02/24/20 25 02/23/2025 COMP METAB OLIC PANEL total protein 8.1 g/dL 6.4-8. 2 Not Available [facility] [address] , [place], [address], 02/23/2025 15:39:03 02/24/20 25 02/23/2025 COMP METAB OLIC PANEL albumin 3.6 g/dL 3.4-5. 0 Not Available [facility] [address] , [place], [address], 02/23/2025 15:39:03 02/24/20 25 02/23/2025 COMP METAB OLIC PANEL globulin 4.5 Not Available [facility] ([facility]) [address], [place], [address], 02/23/2025 15:39:03 02/24/20 25 02/23/2025 COMP METAB OLIC PANEL alb/glob ratio 0.8 0.7-2 Not Available [facility] ([facility] [address], [place], [address], 02/23/2025 15:39:03 02/24/20 25 02/23/2025 COMP METAB OLIC PANEL calcium 10.2 mg/dL 8.5-10 .5 Not Available [facility] [address], [place], [address], 02/23/2025 15:39:03 02/24/20 25 02/23/2025 COMP METAB OLIC PANEL bilirubin total 0.60 mg/dL 0.10-1 .00 Not Available [facility] [address] [place], [address], 02/23/2025 15:39:03 02/24/20 25 02/23/2025 COMP METAB OLIC PANEL AST (SGOT) 46 U/L 0-37 high Not Available [facility] [address] [place], [address], 02/23/2025 15:39:03 02/24/20 25 02/23/2025 COMP METAB OLIC PANEL ALT (SGPT) 78 U/L 0-65 high Not Available [facility] ([facility]) [address], [place], [address], 02/23/2025 15:39:03 02/24/20 25 02/23/2025 COMP METAB OLIC PANEL alk phosphatase 111 U/L 46-116 Not Available [facility] ([facility]) [address], [place], [address], 02/23/2025 15:39:03 02/24/20 25 02/23/2025 C-KARLI CTIVE PROTE IN (CRP) C-reactive protein, quant 2.0 mg/dL 0.05-0 .300 high Not Available [facility] [address] [facility], [place], [address], 02/23/2025 15:40:11 02/24/20 25 02/23/2025 SED RATE sed rate auto 9 0-20 Not Available [facility] [address], [place], [address], 02/23/2025 15:43:35 02/24/20 25 02/27/2025 URINE CULTU RE,CO MPREH ENSIV E urine culture,comp rehensive FINAL REPORT abnormal Not Available [facility] ([facility]) [address], [place], [address], 02/27/2025 19:09:52 02/24/20 25 02/27/2025 URINE CULTU [...] ng units per mL Not Available [facility] ([facility]) [address] [facility], [place], [address], 02/27/2025 19:09:52 02/24/20 25 02/27/2025 URINE CULTU [...] as Cefta rolin e Not Available [facility] ([facility]) [address] [facility], [place], [address], 02/27/2025 19:09:52 02/24/20 25 02/27/2025 URINE CULTU [...] Vanco mycin R S Not Available [facility] ([facility]) [address] [facility], [place], [address], 02/27/2025 19:09:52 02/24/20 25 02/23/2025 urina lysis , dipst ick Leukocytes (reference range) trace Not Available [place] [address], [place], [address], 02/23/2025 14:16:48 02/24/20 25 02/23/2025 urina lysis , dipst ick Nitrite (reference range:) negati ve Not Available [place] [address], [place], [address], 02/23/2025 14:16:48 02/24/20 25 02/23/2025 urina lysis , dipst ick Urobilinogen (reference range) 0.2 Not Available [place] [address] [address] [facility] [address], [place], [address], 02/23/2025 14:16:48 02/24/20 25 02/23/2025 urina lysis , dipst ick Protein (reference range) negati ve Not Available [place] [address] [address] [facility] [facility] [address], [place], [address], 02/23/2025 14:16:48 02/24/20 25 02/23/2025 urina lysis , dipst ick pH (reference range 5-8.5) 6.0 Not Available [place] [address], [place], [address], 02/23/2025 14:16:48 02/24/20 25 02/23/2025 urina lysis , dipst ick Blood (reference range:) small Not Available [place] [address] [address] [facility] [address], [place], [address], 02/23/2025 14:16:48 02/24/20 25 02/23/2025 urina lysis , dipst ick Specific Dallas (reference range) 1.015 Not Available [place] [address] [address] [facility] [address], [place], [address], 02/23/2025 14:16:48 02/24/20 25 02/23/2025 urina lysis , dipst ick Ketone (reference range) negati ve Not Available [place] [address] [address] [facility] [facility] [address], [place], [address], 02/23/2025 14:16:48 02/24/20 25 02/23/2025 urina lysis , dipst ick Bilirubin (reference range) negati ve Not Available [place] [address] [address] [facility] [address], [place], [address], 02/23/2025 14:16:48 02/24/20 25 02/23/2025 urina lysis , dipst ick Glucose (reference range) 500 Not Available [place] [address] [address] [facility] [address], [place], [address], 02/23/2025 14:16:48 02/24/20 25 02/23/2025 urina lysis , dipst ick Color (reference range: yellow-brown ) Dark Yellow Not Available [place] [address] [address] [facility] [address], [place], [address], 02/23/2025 14:16:48 Result Notes None recorded. Problems Name Problem SNOMED Code Status Onset Date Resolution Date Notes Provider Name and Address Organization Details Recorded Time Syncope 117338060 Active 2021 Malina Hernandez DO [address], [place], [address] , [place] [facility] [place] & [place] 15:33:04 Hypersomnia 32390824 Active 2021 Malina Hernandez DO [address] [place], [address] , [place] [facility] & [place] 15:34:08 Problem Notes None recorded. Procedures Surgical History Date Name Laterality Status Provider Name and Address Organization Details Recorded Time 09/25/20 23 Cystoscopy-Female completed Silvio Valdez MD [address], [place], [address], [place] [facility] & [place] 09/25/2023 15:26:11 04/04/20 22 Date of Last Pap Smear completed Vandana Eugenioa [place] [facility] & [place] 10/03/2022 14:31:43 10/28/19 22 Stencil Sprayer Surgery completed Vandana Dalla [place] [facility] [place] & [place] 10/03/2022 14:45:45 10/28/19 17 Cholecystectomy completed Vandana Eugenioa [place] [facility] & [place] 10/03/2022 14:32:27 10/28/19 14 Other completed Vandana Dalla [place] [facility] [place] 10/03/2022 14:44:51 cardiac catheterization completed Vandana Dalla [place] 10/03/2022 14:46:31 strabismus surgery completed Vandana Dalla [place] [facility] [place] 10/03/2022 14:55:15 Imaging Results None recorded. Procedure Notes None recorded. Medical Equipment None Reported. Allergies Allergen ID Allergen Name Allergen Category Reaction Reaction Severity Criticality Documentation Date Start Date Code Code System Note Provider Name and Address Organization Details Recorded Time 84204 aspirin medicatio n chest pain wheezing moderate severe Not available 10/02/2022 1191 RxNorm Vandana Eugenioa null, [place] [facility] & [place] 09:22:42 56993 Bactrim medicatio n arthralgi a (joint pain) muscle cramps severe severe Not available 10/02/2022 31961 9 RxNorm Vandana Dalla null, [place] [facility] & [place] 2 09:22:49 12442 insect venom environme nt confusion cough dizziness fever flushing headache wheezing moderate moderate moderate mild moderate moderate moderate Not available 10/02/2022 81162 UNK Vandana catherien, MATHIEU - [facility] & [place] 2 09:23:13 88345 Pneumococ georges vaccine Not available anaphylax is chest pain facial swelling nausea rash wheezing moderate moderate moderate moderate moderate moderate Not available 10/02/2022 07703 7 RxNorm Vandana catherine, MATHIEU - [facility] & [place] 2 09:23:25 65898 rosuvasta tin medicatio n eye swelling facial swelling respirato ry distress moderate moderate moderate Not available 10/02/2022 84940 2 RxNorm Vandana catherine, MATHIEU - [facility] & [place] 2 09:23:35 Medications Name Sig [...] % 80 /min 98.6 [degF] 49.6 kg/m2 924641. 86 g 116/100 mm[Hg] Bianca ELLER - [facility] 5 13:59:18 Date Recorded Body height Heart rate Oxygen saturation Oxygen saturation in Arterial blood by Pulse oximetry Heart rate Body temperature Body mass index (BMI) Body weight Systolic And Diastolic Provider Name and Address Organization Details Last Updated DateTime 5 160.02 cm 60 /min 97 % 97 % 60 /min 97.7 [degF] 49.6 kg/m2 048881. 86 g 119/79 mm[Hg] Bianca ELLER - [facility] 5 13:31:54 Date Recorded Body height Body temperature Oxygen saturation Oxygen saturation in Arterial blood by Pulse oximetry Inhaled oxygen flow rate Heart rate Body mass index (BMI) Body weight Systolic And Diastolic Provider Name and Address Organization Details Last Updated DateTime 3 157.48 cm 97.1 [degF] 98 % 98 % 2 L/min 89 /min 48.3 kg/m2 202656. 39 g 128/98 mm[Hg] Phillip Morrison [facility] & [place] 13:04:48 Date Recorded Body height Body mass index (BMI) Body weight Systolic And Diastolic Provider Name and Address Organization Details Last Updated DateTime 08/07/2023 157.48 cm 49.4 kg/m2 798112.94 g 125/75 mm[Hg] Britney Yee [facility] & [place] 08/07/2023 15:05:24 Date Recorded Body height Body mass index (BMI) Body weight Systolic And Diastolic Provider Name and Address Organization Details Last Updated DateTime 09/25/2023 157.48 cm 51.2 kg/m2 898546.86 g 126/76 mm[Hg] Ioana Ayala [facility] & [place] 09/25/2023 15:07:04 Social History Question Answer Notes LastModified by [facility] Details LastModified Time Tobacco Smoking Status Never Smoker Vandana Harris florin, [facility] & [place] 10/03/2022 14:32:09 Do You Have An Advance Directive? No Information not available 10/03/2022 Are You Blind Or Do You Have Difficulty Seeing? No Information not available 10/03/2022 What Was The Date Of Your Most Recent Tobacco Screening? 09/17/2022 Information not available 10/03/2022 Do You Have Any Pets? Yes [email or web address] Information not available 09/25/2023 Are You Passively Exposed To Smoke? No Information not available 10/03/2022 Are You Currently In School? No [employer]ST[employer] [email or web address] Information not available 09/25/2023 Sex: Female Functional Status Question Answer Note LastModified by [employer] ion Details LastModified Time Do you use any illicit or recreational drugs? No Information not available 10/03/2022 What is your level of alcohol consumption? 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 Occasional Information not available 10/03/2022 Mental Status Question Answer Note LastModified by Organization D etails LastModified Time Do you feel stressed (tense, restless, nervous, or anxious, or unable to sleep at night)? [id number] Information not available 10/03/2022 Family History Relationship [...] SNOMED-CT Code Diagnosis ICD10 Code Diagnosis Note [id number] [facility] [address] [facility],[address] [place] [address] 10/03/2022 14:07:23 10/03/2022 15:38:25 Syncope [id number] R55 She has been experienci ng these stereotypi georges passing out episodes for five years. No definite witnessed convulsion s but some associated brief confusion afterwards .will order EEG to rule out neurologic causes of syncope Hypersomnia [id number] G47 .10 She describes some significan t episodes of pathologic al sleepiness . She will fall asleep without warning in the middle of talking. This is very infrequent but can be suggestive of narcolepsy . Will order PSG with MSLT to evaluate this in more detail. [id number] Micheline Lackey MD [facility] [address] [place] [address],[address] [place] [address] 04/02/2023 12:53:55 04/02/2023 13:53:12 Pelvic mass 37565204 R19.00 Possible lymphocele versus ovarian remnant from [...] patient with lab levels and consider further [employer] follow up. [id number] Silvio Valdez MD [facility] [address] [place] [address],[address] [place] [address] 08/07/2023 14:35:57 08/07/2023 15:40:17 Recurrent urinary tract infection [id number] N39.0 Kidney stone [id number] N2 0.0 Chronic th oracic back pain [id number] 86447 M54.6 Microscopic hematuria 19 [id number] R31.29 [id number] Silvio Valdez MD [facility] [address] [place] [address],[address] [place] [address] 09/25/2023 14:26:57 09/25/2023 15:25:02 Recurrent urinary tract infection [id number] N39.0 Kidney stone [id number] N2 0.0 Microscopic hematuria 19 [id number] R31.29 [id number] [facility]105 1140 [facility] [address] [place] [address] 02/23/2025 13:48:33 02/23/2025 14:17:11 Recurrent urinary tract infection [id number] N39.0 Will check lab work. Will send urine off for a culture. Will see patient back in 1 week. 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 Patient will follow up in 2 weeks. Call the office if anything persists or worsens. 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 see above Health Concerns Section Related Observation LastModified by Organization Detai ls LastModified Time None Recorded Concern Status LastModified by Organization Details LastModified Time None Recorded Advance Directives Directive N: Payers Insurance Date Sequence Insurance Name Policy Number Policy Valdivia Covered Member ID Valdivia Member ID Guarantor Name 09/18/2023 1 [facility] (POS II) [facility] [id number] [facility] 02/27/2025 1 [facility] (MEDICAID HMO) [facility] [id number] [facility] Notes Date Note Type Note Provider Name and Address Organization Details Recorded Time 04/02/2023 text/html 47-year-old woman referred for a right pelvic fluid collection. Patient had hysterectomy, right salpingo-oophorectomy in 2021. She has undergone imaging on several occasions since then for some occasional, dull, aching right flank pain. She has a 7.4 cm right adnexal fluid collection that has enlarged somewhat over time. Patient states she is seen her word processor for this, was told it is possibly a lymphocele. Micheline Lackey MD [address] [place] [address], [place], [address], [facility] [place] & [place] 04/18/2023 12:50:43 08/07/2023 text/html ROS as noted in the HPI Location: History of kidney stones/Reoccurring UTI.Quality: Flank pain [...] status post hysterectomy. Silvio Valdez MD [address], [place], [address], [facility] - [place] & [place] 08/07/2023 15:35:17 09/25/2023 text/html ROS as noted in the HPI Patient returns to clinic today with a [...] hysterectomy. Silvio Valdez MD [address], [place], [address], [facility] - [facility] & [place] 09/25/2023 15:30:10 02/23/2025 text/html ROS as noted in the HPI patient presents to clinic for history of [...] 2025. Marilou David APRN [address], [place], [address], [facility] - [facility] & [place] 02/24/2025 10:59:38 03/02/2025 text/html ROS as noted in the HPI patient presents to clinic for follow up. Urine culture results received. Patient denies any fever. She is scheduled to have surgery to remove her stone on . Marilou David APRN [address], [place], [address], [facility] - [facility] & [place] 03/02/2025 13:35:40 OBGyn Episode No OBEpisode recorded.
--- OUTSIDE RECORDS SUMMARY | 2025-05-23 19:17 | XMS_ITS | Encounter Summary ---
Author Organization [facility] Address [address] [place] [address] Care Team Providers Care Limo Driver Name Role Phone Juarez Griffin MD Primary Care Provider [phone] Karen Naqvi DO Unavailable [phone] Encounter Details Date Type Department Care Team ([facility] st Contact Info) Description 02/12/2024 Orders Only External Location [address] [place] [address] Gennaro Cuevas MD Critical access hospital0 [facility] [address] [address] Social History Tobacco Use Types Packs/Day Years [...] 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 Source: [facility]. This patient will require contact precautions indefinitely. 04/01/2024 documented as of this encounter Care Teams Limo Driver Relationship Specialty Start Date End Date Juarez Griffin MD [address] [place] [address] PCP - General 03/10/21 Karen Naqvi DO [facility] [address] [place] [address] Referring Physician Obstetrics and Gynecology 09/23/24 documented as of this encounter
--- OUTSIDE RECORDS SUMMARY | 2025-05-23 19:17 | XMS_ITS | Clinical Summary ---
Author Organization [facility] Address [address] [place] [address] Care Team Providers Care Turret Punch Press Operator Name Role Phone Juarez Griffin MD Primary Care Provider [phone] Karen Naqvi DO Unavailable [phone] Allergies Active Allergy Reactions Criticality Noted Date [...] Team Description 03/12/2025 Orders Only External Location [address] [place] [address] Provider, External from Last 3 Months Immunizations [...] drink first t yue in the morning (E[employer] PROFESSIONAL) to steady your nerves or to get [...] PPSV23) 11/01/2021 09/06/2021 [facility]-Breast Cancer Screening 2023 HSF-WPOLD-18 Vaccine ( - season) 2024 10/07/2022, 08/21/2021 [...] this topic Medical Devices Implanted Type Area Regulator Tester Device Identifier Shelf Expiration Date Model / Serial / Lot Stent Ureteral Double Pigtail Pos 6fr 24cm - [id number] - [id number] Implanted:Qty: 1 on 04/11/2024 by Harvey Macdonald MD at [facility] Stent Right: [id number] 01/02/2026 [id number] / [id number] Loop Recorder-2016 Implanted:04/28 (Quantity not on file) [...] ORDERABLES Final Re sult Performing Organization Address [facility] Co de Phone Number [facility] [address] [place] [address] * Hepatitis C Antibody - ED (04/10/2024 6:11 PM EDT) Hepatitis C Antibody Negative Negative 04/10/2024 7:24 PM EDT [facility] Blood Venous blood specimen / Unknown Venipuncture / Unknown 04/10/2024 6:11 PM EDT 04/10/2024 6:26 PM EDT Susan Mcclure MD LAB BLOOD ORDERABLES Final Re sult Performing Organization Address City/[facility] Co de Phone Number [facility] [address] [place] [address] * (ABNORMAL) Hemoglobin A1c (04/10/2024 6:11 PM EDT) Hemoglobin A1c 6.3(H) <5.7 % 04/10/2024 9:31 PM EDT [facility] Blood Venous blood specimen / [...] Adults <6.0% Children and Adolescents <7.5% Source: [place] [employer]. Standards of medical care in diabetes,2017. Diabetes Care.2017:40 (suppl 1):S1-S135. HbA1c assay performed by an ion-exchange chromatography method that is certified traceable to the DCCT. us Joselito Berrios MD LAB BLOOD ORDERABLES Final Re sult [facility] [address] [place] [address] from Last 3 Months or Most Recently Relevant to Health Maintenance Additional Health Concerns Infection Onset Date Last Indicated ESBL Comment:+ 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 Source: [facility]. This patient will require contact precautions indefinitely. 04/01/2024 Insurance [employer] MEDICAID Advance Directives * Full Code (Latest Code Status on File) Date Activated Date Inactivated Comments 04/11/2024 10:12 AM 04/12/2024 3:22 PM Question Answer Comments Patient has decision-making capacity? Yes Care Teams Turret Punch Press Operator Relationship Specialty Start Date End Date Juarez Griffin MD [address] [place] [address] PCP - General 03/10/21 Karen Naqvi DO [facility] [facility] [address] [place] [address] Referring Physician Obstetrics and Gynecology 09/23/24
--- OUTSIDE RECORDS SUMMARY | 2025-05-23 19:17 | XMS_ITS | Encounter Summary ---
Author Organization [facility] Address [address] [place] [address] Care Team Providers Care Marine Pipe Welder Name Role Phone Juarez Griffin MD Primary Care Provider Encounter Details Date Type Department Care Team (Latest Contact Info) Description 03/24/2025 Travel Social History Tobacco Use Types Packs/Day Years Used Date Smoking Tobacco: Never Passive Smoke Exposure: Never Smokeless Tobacco: Never Alcohol Use Standard Drinks/Week Comments Not Currently 0 (1 standard drink = 0.6 oz pur e alcohol) Maybe 3 drinks annually [facility] Utilities Answer Date Recorded In the past 12 months has [employer] electric, gas, oil, or water [employer] threatened to shut off services in your [...] and heating? Not hard at all 04/16/2024 [facility] - Occupational Stress [...] or training? Not on file Preferred Language Latvian 02/25/2025 PHQ-2 Answer Date Recorded Retired PHQ-9: [...] Info) Description 06/15/2025 8:40 AM EDT Telemedicine [facility] UR[facility]Y [address] [facility] [address] [address] Teressa Finley, GILL NET STRINGER 793 [facility] [address] [address] 07/01/2025 1:00 PM EDT Appointment [facility] [address] [place] [address] 07/01/2025 2:00 PM EDT Appointment [facility] [address] [place] [address] 07/06/2025 1:00 PM EDT Office Visit [facility] [address] [facility] [address] [address] Teressa Finley, [facility] 793 [facility] [address] [address] 11/01/2025 1:30 PM EST Office Visit [facility] CARDIOLOGY [address] [place] [address] Yaneth Ugarte MD [address] [place] [address] documented as of this encounter Visit Diagnoses Not on filedocumented in this encounter Care Teams Marine Pipe Welder Relationship Specialty Start Date End Date Juarez Griffin MD 1210 [facility] [address] [facility] [address] [place] [address] PCP - General Internal Medicine 05/30/23 documented as of this encounter
--- OUTSIDE RECORDS SUMMARY | 2025-05-23 19:17 | XMS_ITS | Encounter Summary ---
Author Organization [facility] Address [address] [place] [address] Care Team Providers Care Head Custodian Name Role Phone Juarez Griffin MD Primary Care Provider [phone] Encounter Details Date Type Department Care Team (Latest Contact Info) Description 04/05/2025 Travel Social History Tobacco Use Types Packs/Day Years Used Date Smoking Tobacco: Never Passive Smoke Exposure: Never Smokeless Tobacco: Never Alcohol Use Standard Drinks/Week Comments Not Currently 0 (1 standard drink = 0.6 oz pur e alcohol) Maybe 3 drinks annually [facility] Utilities Answer Date Recorded In the past 12 months has [employer] electric, gas, oil, or water [employer] threatened to shut off services in your [...] and heating? Not hard at all 04/16/2024 [facility]at ional Health - Occupational Stress [...] Info) Description 06/15/2025 8:40 AM EDT Telemedicine [facility] UROLOGY [address] [facility] [address] [address] Teressa Finley, APPLICATION HELPER 793 [facility] [address] [address] 07/01/2025 1:00 PM EDT Appointment [facility] [address] [place] [address] 07/01/2025 2:00 PM EDT Appointment [facility] [address] [place] [address] 07/06/2025 1:00 PM EDT Office Visit [facility] 7[address] [facility] [address] [address] Teressa Finley, [facility] 793 [facility] [address] [address] 11/01/2025 1:30 PM EST Office Visit [facility] CARD[facility] [address] [place] [address] Yaneth Ugarte MD [address] [place] [address] documented as of this encounter Visit Diagnoses Not on filedocumented in this encounter Care Teams Head Custodian Relationship Specialty Start Date End Date Juarez Griffin MD 1210 [facility] [address] [facility] [address] [place] [address] PCP - General Internal Medicine 05/30/23 documented as of this encounter
--- OUTSIDE RECORDS SUMMARY | 2025-05-23 19:17 | XMS_ITS | Clinical Summary ---
Author Organization [facility] Address [address] [place] [id number] Care Team Providers Care Educational Programming Director Name Role Phone Juarez Griffin MD Primary Care Provider [phone] Allergies Active Allergy Reactions Criticality Noted Date Comments Aspirin Anaphylaxis High 12/25/2022 Amoxicillin-Pot Clavulanate Rash Low 03/09/2024 Facial flushing Beta lactam allergy details Antibiotic reaction: (!) swollen tongue, shortness of breath Age at reaction: adult Dose to reaction time: (!) hours Reason for antibiotic: unknown Epinephrine required for reaction?: no (steriods) Tolerated antibiotics: amoxicillin, augmentin, cephalexin Bee Venom Anaphylaxis High 01/01/2023 Levofloxacin Swelling High 03/05/2024 Pneumococcal Vaccine Anaphylaxis,Unknown - High Severity,Nausea Only,Rash,Swelling,S hortness Of Breath High 02/06/2024 Rosuvastatin Anaphylaxis High 01/01/2023 Tolerates Pravastatin with no issues. Sodium Hypochlorite Anaphylaxis High 02/06/2024 Sucralose Shortness Of Breath,Other (See Comments) High 02/06/2024 blisters Sulfamethoxazole-Trime thoprim Other (See Comments) Low 01/01/2023 Extreme joint pain, nausea and vomiting Beta lactam allergy details Antibiotic reaction: (!) swollen tongue, shortness of breath Age at reaction: adult Dose to reaction time: (!) hours Reason for antibiotic: unknown Epinephrine required for reaction?: no (steriods) Tolerated antibiotics: amoxicillin, augmentin, cephalexin Medications metFORMIN (GLUCOPHAGE) 500 MG tablet Take 1 tablet by mouth 2 (Two) Times a Day. Active tiZANidine (ZANAFLEX) 4 MG tablet Take 1 tablet by mouth As Needed. 3 Active O2 (OXYGEN) 2 L by Alternating Nares route Every Night. Active ondansetron (ZOFRAN) 4 MG tablet Take 1 tablet by mouth Every 8 (Eight) Hours As Needed. 3 Active ipratropium-al buterol (DUO-NEB) 0.5-2.5 mg/3 ml nebulizer As Needed. 3 Active Ventolin HFA 108 (90 Base) MCG/ACT inhaler INHALE TWO PUFFS BY MOUTH EVERY 4 TO 6 HOURS NEEDED 18 g 6 4 Active bumetanide (BUMEX) 2 MG tabletIndicati ons:Swelling of lower extremity TAKE ONE TABLET BY MOUTH TWICE DAILY 60 tablet 11 4 Active Additional Information Patient taking differently:2 mg Oral 2 Times Daily,usually takes once per day with 2nd dose PRN, Informant: Self, Reported on 05/03/2025 vitamin C (ASCORBIC ACID) 500 MG tablet Daily. 4 Active naloxone (NARCAN) 4 MG/0.1ML nasal sprayIndicatio ns:Nephrolithi asis,Recurrent UTI Call 911. Don't prime. Holt in 1 nostril for overdose. Repeat in 2-3 minutes in other nostril if no or minimal breathing/respon siveness. 2 each 4 Active nebivolol (BYSTOLIC) 5 MG tablet TAKE ONE TABLET BY MOUTH EVERY DAY 90 tablet 5 4 Active Additional Information Patient taking differently: Nightly, Informant: Self, Reported on 05/03/2025 vitamin D3 125 MCG (5000 UT) capsule capsuleIndicat ions:Vitamin D deficiency Take 1 capsule by mouth Daily. 30 capsule 11 4 Active montelukast (SINGULAIR) 10 MG tablet Take 1 tablet by mouth Every Night. 4 Active ibuprofen (ADVIL,MOTRIN) 800 MG tablet Take 1 tablet by mouth Every 6 (Six) Hours As Needed for Moderate Pain. 4 Active Trelegy Ellipta 100-62.5-25 MCG/ACT inhaler Inhale 1 puff Daily. 4 Active OneTouch Verio test strip USE TO TEST BLOOD SUGAR ONCE DAILY DIRECTED 4 Active pravastatin (PRAVACHOL) 40 MG tablet 10 mg. 5 Active omeprazole (priLOSEC) 20 MG capsule Take 1 capsule by mouth Daily. 30 capsule 6 5 Active spironolactone (ALDACTONE) 50 MG tablet Take 1 tablet by mouth Daily. 30 tablet 6 5 Active senna 8.6 MG tablet TAKE ONE TABLET BY MOUTH TWICE DAILY NEEDED FOR CONSTIPATION 5 Active Mounjaro 2.5 MG/0.5ML solution auto-injector Holding at this time 5 Active cetirizine (zyrTEC) 10 MG tablet Take 1 tablet by mouth Daily. Active promethazine (PHENERGAN) 25 MG tablet Take 1 tablet by mouth Every 6 (Six) Hours As Needed for Nausea or Vomiting. Active Linzess 290 MCG capsule capsule Take 1 capsule by mouth Every Morning Before Breakfast. 5 Active nitroglycerin (NITROSTAT) 0.4 MG SL tablet DISSOLVE 1 TABLET UNDER THE TONGUE EVERY 5 MINUTES NEEDED FOR CHEST PAIN. DO NOT EXCEED A TOTAL OF 3 DOSES IN 15 MINUTES. IF NO RELIEF AFTER 3 DOSES CALL 911/GO TO ER 5 Active traMADol (ULTRAM) 50 MG tablet TAKE ONE TABLET BY MOUTH EVERY 6 HOURS NEEDED FOR PAIN MAY CAUSE DROWSINESS Active sacubitril-mary sartan (Entresto) 24-26 MG tabletIndicati ons:Swelling of lower extremity Take 1 tablet by mouth 2 (Two) Times a Day. 60 tablet 2 5 Active methenamine (HIPREX) 1 g tablet Take 1 tablet by mouth Every 12 (Twelve) Hours. Holding at this time due to UTI 5 025 Discontin ued(*Ther apy completed ) oxybutynin (DITROPAN) 5 MG tablet TAKE ONE TABLET BY MOUTH TWICE DAILY NEEDED FOR BLADDER SPASMS 5 025 Discontin ued(*Ther apy completed ) phenazopyridin e (PYRIDIUM) 200 MG tablet TAKE ONE TABLET BY MOUTH THREE TIMES DAILY NEEDED FOR painful urination --TAKE WITH FOOD-- 5 025 Discontin ued(*Ther apy completed ) sacubitril-mary sartan (Entresto) 24-26 MG tabletIndicati ons:Swelling of lower extremity Take 1 tablet by mouth 2 (Two) Times a Day. 60 tablet 2 5 025 Discontin ued(*Ther apy completed ) glipiZIDE 2.5 MG tablet Take 1 tablet by mouth 2 (Two) Times a Day. 025 Discontin ued(*Ther apy completed ) Calcium Carb-Cholecalc iferol 500-3.125 MG-MCG tablet Take by mouth Daily. 025 Discontin ued(*Ther apy completed ) tamsulosin (FLOMAX) 0.4 MG capsule 24 hr capsuleIndicat ions:Staghorn calculus Take 1 capsule by mouth Every Night. 10 capsule 03/31/2025 1:24 PM EDT 5 025 Discontin ued(*Ther apy completed ) oxyCODONE (Roxicodone) 5 MG immediate release tabletIndicati ons:Staghorn calculus Take 1 tablet by mouth Every 6 (Six) Hours As Needed for Moderate Pain or Severe Pain. 5 tablet 03/31/2025 1:24 PM EDT 5 025 Discontin ued(*Ther apy completed ) phenazopyridin e (PYRIDIUM) 100 MG tabletIndicati ons:Staghorn calculus Take 1 tablet by mouth Daily As Needed (urinary burning). 5 tablet 03/31/2025 1:24 PM EDT 5 025 Discontin ued(*Ther apy completed ) oxybutynin XL (Ditropan XL) 10 MG 24 hr tabletIndicati ons:Staghorn calculus Take 1 tablet by mouth Daily As Needed (bladder spasm). 10 tablet 03/31/2025 1:24 PM EDT 5 025 Discontin ued(*Ther apy completed ) docusate sodium (Colace) 100 MG capsuleIndicat ions:Staghorn calculus Take 1 capsule by mouth 2 (Two) Times a Day. If taking pain pill 15 capsule 1 03/31/2025 1:24 PM EDT 025 Discontin ued(*Ther apy completed ) Active Problems Problem Noted Date Diagnosed Date Staghorn calculus 02/16/2025 Mitral regurgitation 02/15/2025 Multiple thyroid nodules 02/15/2025 Right flank pain 02/15/2025 Right pelvic adnexal fluid collection 02/15/2025 Adnexal mass 02/15/2025 Sepsis 02/15/2025 SIRS (systemic inflammatory response syndrome) 0 02/15/2025 Vaginal pruritus 02/15/2025 Vitamin B12 deficiency 02/15/2025 Palpitations 07/23/2024 Assessment & Plan (07/23/2024 10:55 AM EDT): ER visit on 07/18/2024 for frequent palpitations. - 5-day Holter monitor for further evaluation. Hyperparathyroidism 06/30/2024 Vitamin D deficiency 06/30/2024 Left ovarian cyst 06/30/2024 Kidney stone 04/15/2024 Obesity, Class III, BMI 40-49.9 (morbid obesity) 04/15/2024 Morbid (severe) obesity due to excess calories 0 03/10/2024 Recurrent urinary tract infection 03/09/2024 Nephrolithiasis 03/02/2024 High triglycerides 02/18/2023 Acute idiopathic pericarditis 02/18/2023 Assessment & Plan (09/08/2024 2:48 PM EST): No recurrent episodes and no chest pain reported. Shortness of breath 01/17/2023 Assessment & Plan (01/17/2023 8:18 PM EDT): Suspect this is multifactorial related to weight gain, fluid, recent bronchitis. If persistent consider cardiac MRI or repeat echo Type 2 diabetes mellitus wit hout complication, without long-term current use of insulin 01/17/2023 Assessment & Plan (01/17/2023 8:22 PM EDT): Discussed Ozempic as a way for weight loss and diabetic control. Pure hypercholesterolemia 01/17/2023 Assessment & Plan (01/17/2023 8:22 PM EDT): On a low-dose statin. We will assess control Precordial chest pain 01/17/2023 Assessment & Plan (07/23/2024 10:58 AM EDT): Coronary CTA showed no coronary disease. History of pericarditis. Assessment & Plan (01/17/2023 8:23 PM EDT): Coronary CTA showed no coronary disease which is encouraging. However she did have a recent ER visit with ST elevation on her EKG consistent with possible pericarditis and has a recent bronchitis. We will treat for pericarditis as her chest pain. Ordering inflammatory markers for pericarditis as well. Allergy is to aspirin only but she can take other NSAIDs such as ibuprofen. Swelling of lower extremity 01/17/2023 Assessment & Plan (09/08/2024 2:48 PM EST): Stable. Trying conservative methods such as elevating legs. On some mild diuretics as well. Will continue current therapy. Assessment & Plan (07/23/2024 10:56 AM EDT): - Update echocardiogram - Continue Bumex at current dose Assessment & Plan (01/17/2023 8:21 PM EDT): Worsening lately with weight gain. We will try to address weight and fluid together. Normal ejection fraction. We will check basic metabolic panel after diuretics to assess potassium and renal function. COPD (chronic obstructive pu lmonary disease) with chronic bronchitis 05/22/2006 Encounters Date Type Department Care Team Description 05/11/[address] [facility] [address] [place] [address] Shell Diaz RegSched Rep 05/10/2025 Results Follow-Up [facility] [address] [place] [address] Yaneth Ugarte MD 05/03/2025 1:30 PM EDT Office Visit [facility] [address] [address] Yaneth Ugarte MD Hypercholesterolemia (Primary Dx); PVC (premature ventricular contraction); Precordial chest pain; Swelling of lower extremity 05/03/2025 Patient rounding ([facility] [place] [facility] [address] [place] [address] [place] [address] Yaneth Ugarte MD 05/03/2025 Travel 04/29/[address] [facility] [address] [place] [address] [place] [address] Yaneth Ugarte MD 04/05/2025 9:00 AM EDT Procedure visit [facility] [address] [facility] [address] [address] Demarcus Ames MD Staghorn calculus (Primary Dx) 04/05/2025 Travel 04/01/[address] [facility] [address] [facility] [address] [address] TODD - CLINICAL 03/31/2025 10:26 AM EDT Anesthesia Event [facility] OR [address] [place] [phone] Edgardo Ryan, SANDRA 03/31/2025 10:10 AM EDT - 03/31/2025 12:11 PM EDT Surgery [facility] OR [address] [place] [phone] Demarcus Ames MD Percutaneous nephrolithotomy with stent placement left, cystoscopy 03/31/2025 10:05 AM EDT Anesthesia Event Converted [facility] ANESTHESIA [address] [place] [phone] 03/31/2025 8:29 AM EDT - 03/31/2025 2:15 PM EDT Hospital Encounter [facility] OR [address] [place] [phone] Demarcus Ames MD Staghorn calculus Discharge Disposition: Home or Self Care 03/31/[address] [facility] [address] [facility] [address] [address] TODD - POST OP FOLLOW UP 03/31/[address] [facility] [address] [facility] [address] [address] TODD - SCHEDULING 03/31/2025 Travel 03/25/[address] [facility] [address] [facility] [address] [address] Demarcus Ames MD 03/24/2025 1:00 PM EDT Pre-Admission Testing [facility] PREADMISSION T [address] [place] [address] 03/24/2025 Travel 03/17/[address] [facility] [address] [facility] [address] [address] Demarcus Ames MD 03/16/[address] [facility] [address] [facility] [address] [address] Demarcus Ames MD 03/15/[address] [facility] [address] [facility] [address] [address] TODD-CLINICAL 03/04/2025 9:53 AM EDT Anesthesia Event [address] [address] Trevon Zeng MD 03/04/2025 9:32 AM EDT - 03/04/2025 11:17 AM EDT Surgery [facility] OR [address] [place] [phone] Zac Mckeon MD PARATHYROIDECTOMY 03/04/2025 7:11 AM EDT - 03/04/2025 12:45 PM EDT Hospital Encounter [place] [id number] [place] [phone] Zac Mckeon MD Hyperparathyroidism Discharge Disposition: Home or Self Care 03/04/2025 Travel 02/26/[address] [facility] [address] [facility] [address] [place] [address] Demarcus Ames MD 02/26/[address] [facility] [address] [place] [address] WAESPE - CARDIAC CLEARANCE 02/25/2025 3:30 PM EDT Pre-Admission Testing [facility] PREADMISSION T [address] [place] [phone] 02/25/2025 Travel from Last 3 Months Family History Medical History Relation Name Comments Diabetes Father Wallace bradley Diabetes type II Father Wallace bradley Heart attack Father Wallace bradley X2 Heart disease Father Wallace bradley Hypertension Father Tampamarlon bradley Obesity Father Wallace bradley Obesity Maternal Aunt Faye Heart disease Maternal Grandfather Bony Armas Cancer Maternal Uncle 1 Lino armas Obesity Maternal Uncle 2 Steve Dementia Mother Marzena bradley Hypertension Mother Marzena bradley Lupus Mother Marzena bradley Obesity Mother Marzena bradley Cancer Paternal Grandfather Unknown Heart disease Paternal Grandfather Unknown Anemia Sister Marta Atrial fibrillation Sister Marta Cancer Sister Marta Skin Fibroids Sister Marta Hypertension Sister Marta Kidney disease Sister Marta Liver disease Sister Marta Obesity Sister Marta Thyroid disease Sister Marta Relation Name Status Comments Father Wallace bradley Maternal Aunt Faye Maternal Grandfather Bony Armas Alive Maternal Uncle 1 Lino armas Maternal Uncle 2 Steve Mother Marzena bradley Alive Paternal Grandfather Unknown Sister Marta Alive Social History Tobacco Use Types Packs/Day Years Used Date Smoking Tobacco: Never Passive Smoke Exposure: Never Smokeless Tobacco: Never Tobacco Cessation:Counseling Given: Yes Alcohol Use Standard Drinks/Week Comments Not Currently 0 (1 standard drink = 0.6 oz pur e alcohol) Maybe 3 drinks annually [facility] Utilities Answer Date Recorded In the past 12 months has [employer] gas, oil, or water [employer] threatened to shut off services in your [...] and heating? Not hard at all 04/16/2024 [facility] - Occupational [...] or training? Not on file Preferred Language Botswanan 02/25/2025 PHQ-2 Answer Date Recorded Retired PHQ-9: Brief Depression Severity Measure Score 0 04/16/2024 Comments No Sex and Gender Information Value Date Recorded Sex Assigned at Not on file Legal Sex Female 9:09 AM EST Gender Identity Not on file Sexual Orientation Not on file Occupation Industry Job Start Date Job End Date DISABLED Not on file Not on file Not on file Last Filed Vital Signs Vital Sign Reading Time Taken Comments Blood Pressure 110/78 05/03/2025 1:20 PM EDT Pulse 91 05/03/2025 1:20 PM EDT Temperature 36.3 C (97.3 F) 03/31/2025 1:40 PM EDT Respiratory Rate 16 03/31/2025 1:40 PM EDT Oxygen Saturation 96% 05/03/2025 1:20 PM EDT Inhaled Oxygen Concentration - - Weight 126 kg (278 lb) 05/03/2025 1:20 PM EDT Height 160.7 cm (5' 3.25 ) 05/03/2025 1:20 PM ED T Body Mass Index 48.86 05/03/2025 1:20 PM EDT Plan of Treatment Upcoming Encounters Date Type Department Care Team (Late st Contact Info) Description 06/15/2025 8:40 AM EDT Telemedicine [facility] [address] [facility] [address] [place] [address] Teressa Finley, MENTAL HEALTH TECH [address] [facility] [address] [address] 07/01/2025 1:00 PM EDT Appointment [facility] AT [place] [address] [place] [address] 07/01/2025 2:00 PM EDT Appointment [facility] CT AT [place] [address] [place] [address] 07/06/2025 1:00 PM EDT Office Visit [facility] [address] [facility] [address] [phone] Teressa Finley, MENTAL HEALTH TECH [address] [facility] [address] [address] 11/01/2025 1:30 PM EST Office Visit [facility] [address] [place] [address] aYneth Ugarte MD [address] [place] [address] Health Maintenance Due Date Last Done Comments Annual Gynecologic Pelvic an d Breast Exam 1973 DIABETIC EYE EXAM 1983 DIABETIC FOOT EXAM 1983 URINE MICROALBUMIN-CREATININ E RATIO (uACR) 1983 Hepatitis B (1 of 3 - 19+ 3- dose series) 1992 TDAP/TD VACCINES (1 - Tdap) 1992 MAMMOGRAM 2013 COLOGUARD 2018 COLON CANCER SCREENING 5 YEA R SIGMOIDOSCOPY 2018 COLONOSCOPY 2018 [address] CANCER SCREENING 2018 CT COLONOGRAPHY 2018 FECAL OCCULT BLOOD TEST 2018 FIT Testing (1 year) 2018 Pneumococcal Vaccine 50+ (2 of 2 - PPSV23) 11/01/2021 09/06/2021 ANNUAL PHYSICAL 12/06/2022 COVID-19 Vaccine (3 - 2023-2 5 season) 2024 10/07/2022, 08/21/2021 HEMOGLOBIN A1C 10/10/2024 04/10/2024, 03/28, 12/27/2023, Additional history exists INFLUENZA VACCINE 07/28/2025 08/05/2024, , 08/28/2023, Additional history exists LIPID PANEL 05/07/2026 05/07/2025 ZOSTER VACCINE Completed 10/30/2023, 05/27/2023 HEPATITIS C SCREENING Completed 04/10/2024 Medical Devices Implanted Type Area Insert Molding Operator Device Identifier Shelf Expiration Date Model / Serial / Lot Kt Seal Hemos Abs Floseal Matrx Fast/Prep 5ml - [id number] Implanted:Qty : 1 on 04/15/2024 by Demarcus Ames MD at [facility] Implant Right: Kidney [employer] 05/29/2025 [id number] / / [id number] Clip Ligat Vasc Horizon Steve Caldera Daniel 6ct - [id number] Implanted:Qty : 2 on 03/04/2025 by Zac Mckeon MD at [facility] Implant N/A: Neck [employer] [id number] / / Clip Ligat Vasc Horizon Ti Sm Yel 6ct - [id number] Implanted:Qty : 4 on 03/04/2025 by Zac Mckeon MD at [facility] Implant N/A: Neck [employer] [id number] / / Hemost Abs Surgicel Orig 4x8in Strl - [id number] Implanted:Qty : 1 on 03/04/2025 by Zac Mckeon MD at [facility] Implant N/A: Neck [employer] J [id number] / / Kt Seal Hemos Abs Floseal Matrx 1.5/Fast/Prep 5000/Iu 5ml - [id number] Implanted:Qty : 1 on 03/31/2025 by Demarcus Ames MD at [facility] Implant Left: Back [employer] 08/13/2026 [id number] / / [id number] Stnt Percuflx No Gw 7x26 - [id number] Implanted:Qty : 1 on 04/15/2024 by Demarcus Ames MD at [facility] Stent Right: Kidney [employer] 09/06/2026 [id number] / / [id number] Stnt Percuflx No Gw 7x26 - [id number] Implanted:Qty : 1 on 03/31/2025 by Demarcus Ames MD at [facility] Stent Left: Back [employer] 08/10/2027 [id number] / / [id number] Procedures Procedure Name Priority Date/Time Associated Diagnosis Comments COMPREHENSIVE METABOLIC PANEL Routine 05/07/2025 Hypercholesterole lucia PVC (premature ventricular contraction) LIPID PANEL Routine 05/07/2025 Hypercholesterole lucia PVC (premature ventricular contraction) MAGNESIUM Routine 05/07/2025 Hypercholesterole lucia PVC (premature ventricular contraction) TSH RFX ON ABNORMAL TO FREE T4 Routine 05/07/2025 Hypercholesterole lucia PVC (premature ventricular contraction) ECG 12-LEAD Routine 05/03/2025 2:22 PM EDT Precordial chest pain SCANNED - LABS 04/11/2025 FL C ARM DURING SURGERY Routine 03/31/20 25 12:03 PM EDT TISSUE / BONE CULTURE Routine 03/31/2025 11:55 AM EDT Staghorn calculus STONE ANALYSIS STAT 03/31/2025 11:45 AM EDT Staghorn calculus ANESTHESIA INTUBATION Routine 03/31/2025 10:40 AM EDT NEPHROSTOLITHOTOMY PERCUTANEOUS AND CYSTOSCOPY 03/31/2025 10:10 AM EDT Staghorn calculus ANESTHESIA PERIPHERAL BLOCK Routine 03/31/2025 10:04 AM EDT POCT GLUCOSE FINGERSTICK Routine 025 9:12 AM EDT TYPE AND SCREEN STAT 03/31/2025 9:03 AM EDT Staghorn calculus SCANNED - TELEMETRY 03/31/2025 BASIC METABOLIC PANEL Routine 03/24/2025 1:13 PM EDT Staghorn calculus CBC (NO DIFF) Routine 03/24/2025 1:13 PM EDT Staghorn calculus URINALYSIS, MICROSCOPIC ONLY Routine 03/24/2025 1:08 PM EDT Staghorn calculus URINALYSIS W/ CULTURE IF INDICATED Routine 03/24/2025 1:08 PM EDT Staghorn calculus URINE CULTURE Routine 03/24/2025 1:08 PM EDT Staghorn calculus TISSUE PATHOLOGY EXAM Routine 03/04/2025 10:39 AM EDT Hyperparathyroidi sm ANESTHESIA INTUBATION Routine 03/04/2025 10:20 AM EDT PARATHYROIDECTOMY 03/04/2025 9:3 8 AM EDT Hyperparathyroidi sm, primary Special Needs ++ POCT GLUCOSE FINGERSTICK Routine 025 8:35 AM EDT ECG 12-LEAD Routine 02/25/2025 4:00 PM EDT CBC (NO DIFF) Routine 02/25/2025 3:32 PM EDT POTASSIUM Routine 02/25/2025 3:32 PM EDT from Last 3 Months Results * TSH Rfx On Abnormal To Free T4 (05/07/2025) Blood us Yaneth Ugarte MD LAB BLOOD ORDERABLES Final R esult [facility]
[address] [place] [address], * Magnesium (05/07/2025) Blood Yaneth Ugarte MD LAB BLOOD ORDERABLES Final R esult Performing Organization Address [facility]/ZIP Co de Phone Number [facility]
[address] [place] [address], [place] [phone] * Lipid Panel (05/07/2025) Blood Yaneth Ugarte MD LAB BLOOD ORDERABLES Final R esult Performing Organization Address [facility] Co de Phone Number [facility]
[address] [place] [address], [place] [phone] * Comprehensive Metabolic Panel (05/07/2025) Blood Yaneth Ugarte MD LAB BLOOD ORDERABLES Final R esult Performing Organization Address [facility] Co de Phone Number [facility]
[address] [place] [address], [place] [phone] * ECG 12-LEAD (05/03/2025 2:22 PM EDT) Only the most recent of2 resultswithin the time period is included. Narrative Karen Escalona MA - 05/03/2025 2:22 [...] Chronic chest pain followed by Dr. Ugarte -[facility] 03/05/24 Chronic diastolic (congestive) heart failure [...] 03/04/2025 Procedure: PARATHYROIDECTOMY; Surgeon: Zac Mckeon MD;Location: [facility] OR; Service: General; Laterality: N/A; PERCUTANEOUS NEPHROSTOLITHOTOMY Right 04/15/2024 Procedure: CYSTOSCOPY & BALLOON OCCLUSION CATHETER PLACEMENT, PRIMARYPERCUTANEOUS ACCESS, NEPHROSTOLITHOTOMY PERCUTANEOUS, WITH STENT EXCHANGE;Surgeon: Demarcus Ames MD; Location: [facility] OR; Service:Urology; Laterality: Right; PERCUTANEOUS NEPHROSTOLITHOTOMY Left 03/31/2025 Procedure: Percutaneous nephrolithotomy with stent placement left,cystoscopy; Surgeon: Demarcus Ames MD; Location: [facility] OR;Service: Urology; Laterality: Left; TUBAL ABDOMINAL LIGATION [...] by: Yaneth Ugarte MD Authorized by: Yaneth Ugaret MD Comparison: compared with previousECG from 03/02/2025 [...] Ugarte MD Cardiology and Sleep [facility] 05/03/2025 Please note that this explicitly excludes time spent on other separatebillable services such as performing procedures or test interpretation,when applicable. This note was created using dictation software which occasionallytranscribes nonsensical phrases. Please contact the provider if anyclarification is needed. us Yaneth Ugarte MD ECG ORDERABLES Final Result * LABS SCANNED (04/11/2025) us Yaneth Ugarte MD LAB BLOOD ORDERABLES Final R esult * FL C Arm During Surgery (03/31/2025 12:03 PM EDT) Narrative SYSTEMGENERATED, DOCUMENTATION - 03/31/2025 12:04 PM EDT This procedure was auto-finalized with no dictation required. Demarcus Ames MD IMG FLUOROSCOPY ORDERABLE S Final Result * (ABNORMAL) Tissue / Bone Culture - Calculus, Kidney, Left (03/31/2025 11:55 AM EDT) Tissue Culture Rare growth Proteus mirabilis(A) TOMASA 04/03/2025 9:18 AM EDT [facility] Gram Stain No organisms seen 04/03/2025 9:18 AM EDT [facility] Calculus Left kidney structure / [...] GENERAL OR DERABLES Final Result [facility]
[address] [place] [address], [place] [phone] [facility]
[address] [place] [address], * STONE ANALYSIS - Calculus, Kidney, Left [...] 04/14/2025 10:06 PM EDT [facility] Magnesium Raulito Phos 40 % 04/14/2025 10:06 PM EDT [...] - 04/14/2025 10:06 PM EDT Performed at: - [facility] [address] [id number] Truck Body Builder Apprentice: Mariam Turner PhD, Phone: [phone] Demarcus Ames MD BODY FLUIDS AND STOOLS OR DERABLES Final Result Performing Organization Address City/State/[facility] Co de Phone Number [facility] [address] [place] [address], * BH AN ETT AIRWAY (03/31/2025 10:40 AM EDT) Narrative Edgardo Ryan CRNA - 03/31/2025 10:40 AM EDT Edgardo Ryna CRNA 03/31/2025 10:41 AM Airway Reason: elective Date/Time: 03/31/2025 10:32 AM Airway not difficult General Information and Staff Patient location during procedure: OR RETURNED CASE INSPECTOR/CAA: Edgardo Ryan CRNA Indications and Patient Condition [...] Ryan CRNA ANESTHESIA ORDERABLES Final Result * (ABNORMAL) POC Glucose Once (03/31/2025 9:12 AM EDT) Only the most recent of2 resultswithin the time period is included. Glucose 200(H) 70 - 130 mg/dL 03/31/2025 9:33 AM EDT [facility] Comment:Serial Number: [id number] Blood 03/31/2025 9:12 AM EDT 03/31/2025 9:33 AM EDT Demarcus Ames MD POINT OF CARE TEST ORDERA BLES Final Result [facility]
[address] [place] [address], [place] [phone] * Type & Screen (03/31/2025 9:03 AM EDT) ABO Type AB 03/31/2025 10:05 AM EDT [facility] RH type Positive 03/31/2025 10:05 AM EDT [facility] Antibody Screen Negative 03/31/2025 10:05 AM EDT [facility] T&S Expiration Date 04/03/2025 11:59:59 PM 03/31/2025 10:05 AM EDT [facility] Blood Venipuncture / Unknown 03/31/2025 9:03 AM EDT 03/31/2025 9:09 AM EDT Demarcus Ames MD BLOOD BANK TEST ORDERABLE S Edited Result - Final [facility]
[address] [place] [address], * Telemetry Scan (03/31/2025) [facility] ECG ORDERABLES Final Result * CBC (No Diff) (03/24/2025 1:13 PM EDT) Only the most recent of2 resultswithin the time period is included. WBC 10.22 3.40 - 10.80 10*3/mm3 03/24/2025 3:17 PM EDT [facility] RBC 5.25 3.77 - 5.28 10*6/mm3 03/24/2025 3:17 PM EDT [facility] Hemoglobin 14.8 12.0 - 15.9 g/dL 03/24/2025 3:17 PM EDT [facility] Hematocrit 45.0 34.0 - 46.6 % 03/24/2025 3:17 PM EDT [facility] MCV 85.7 79.0 - 97.0 fL 03/24/2025 3:17 PM EDT [facility] MCH 28.2 26.6 - 33.0 pg 03/24/2025 3:17 PM EDT [facility] MCHC 32.9 31.5 - 35.7 g/dL 03/24/2025 3:17 PM EDT [facility] RDW 13.8 12.3 - 15.4 % 03/24/2025 3:17 PM EDT [facility] RDW-SD 42.9 37.0 - 54.0 fl 03/24/2025 3:17 PM EDT [facility] MPV 11.2 6.0 - 12.0 fL 03/24/2025 3:17 PM EDT [facility] Platelets 326 140 - 450 10*3/mm3 03/24/2025 3:17 PM EDT [facility] Blood Line / Unknown 03/24/2025 1: 13 PM EDT 03/24/2025 3:13 PM EDT Demarcus Ames MD LAB BLOOD ORDERABLES Maria E hwang Result [facility]
[address] [place] [address], * (ABNORMAL) Basic Metabolic Panel (03/24/2025 1:13 PM EDT) Glucose 120(H) 65 - 99 mg/dL 03/24/2025 3:42 PM EDT [facility] BUN 16.0 6.0 - 20.0 mg/dL 03/24/2025 3:42 PM EDT [facility] Creatinine 0.90 0.57 - 1.00 mg/dL 03/24/2025 3:42 PM EDT [facility] Sodium 140 136 - 145 mmol/L 03/24/2025 3:42 PM EDT [facility] Potassium 4.1 3.5 - 5.2 mmol/L 03/24/2025 3:42 PM EDT [facility] Chloride 97(L) 98 - 107 mmol/L 03/24/2025 3:42 PM EDT [facility] CO2 26.5 22.0 - 29.0 mmol/L 03/24/2025 3:42 PM EDT [facility] Calcium 9.7 8.6 - 10.5 mg/dL 03/24/2025 3:42 PM EDT [facility] BUN/Creatinine Ratio 17.8 7.0 - 25.0 03/24/2025 3:42 PM EDT [facility] Anion Gap 16.5(H) 5.0 - 15.0 mmol/L 03/24/2025 3:42 PM EDT [facility] eGFR 77.6 >60.0 mL/min/1.7 3 03/24/2025 3:42 PM EDT [facility] Blood Line / Unknown 03/24/2025 1: 13 PM EDT 03/24/2025 3:13 PM EDT [facility] - 03/24/2025 3:42 PM EDT GFR Categories in Chronic Kidney Disease (CKD) GFR Category GFR (mL/min/1.73) Interpretation G1 90 or greater Normal or high (1) G2 60-89 Mild decrease (1) G3a 45-59 Mild to moderate decrease G3b 30-44 Moderate to severe decrease G4 15-29 Severe decrease G5 14 or less Kidney failure (1)In the absence of evidence of kidney disease, neither GFR category G1 or G2 fulfill the criteria for CKD. eGFR calculation 2020 CKD-EPI creatinine equation, which does not include race as a factor us Demarcus Ames MD LAB BLOOD ORDERABLES Maria E jaiden Result [facility]
[address] [place] [address], * (ABNORMAL) Urinalysis, Microscopic Only - Urine, Clean Catch (03/24/2025 1:08 PM EDT) RBC, UA 3-5(A) None Seen, 0-2 /HPF 03/24/2025 3:45 PM EDT [facility] WBC, UA 6-10(A) None Seen, 0-2 /HPF 03/24/2025 3:45 PM EDT [facility] Bacteria, UA Trace(A) None Seen /HPF 03/24/2025 3:45 PM EDT [facility] Squamous Epithelial Cells, UA 0-2 None Seen, 0-2 /HPF 03/24/2025 3:45 PM EDT [facility] Hyaline Casts, UA 0-2 None Seen /LPF 03/24/2025 3:45 PM EDT [facility] Methodology Manual Light Microscopy 03/24/2025 3:45 PM EDT [facility] Urine Urine specimen obtained by clean catch procedure / Unknown Collection / Unknown 03/24/2025 1:08 PM EDT 03/24/2025 3:12 PM EDT Demarcus Ames MD URINE ORDERABLES Final Re sult [facility]
[address] [place] [address], * (ABNORMAL) Urinalysis With Culture If Indicated - Urine, Clean Catch (03/24/2025 1:08 PM EDT) Color, UA Yellow Yellow, Straw 03/24/2025 3:31 PM EDT [facility] Appearance, UA Clear Clear 03/24/2025 3:31 PM EDT [facility] pH, UA 5.5 5.0 - 8.0 03/24/2025 3:31 PM EDT [facility] Specific [place], UA 1.010 1.005 - 1.030 03/24/2025 3:31 PM EDT [facility] Glucose, UA >=1000 mg/dL (3+)(A) Negative 03/24/2025 3:31 PM EDT [facility] Ketones, UA Negative Negative 03/24/2025 3:31 PM EDT [facility] Bilirubin, UA Negative Negative 03/24/2025 3:31 PM EDT [facility] Blood, UA Small (1+)(A) Negative 03/24/2025 3:31 PM EDT [facility] Protein, UA Negative Negative 03/24/2025 3:31 PM EDT [facility] Leuk Esterase, UA Small (1+)(A) Negative 03/24/2025 3:31 PM EDT [facility] Nitrite, UA Negative Negative 03/24/2025 3:31 PM EDT [facility] Urobilinogen, UA 0.2 E.U./dL 0.2 - 1.0 E.U./dL 03/24/2025 3:31 PM EDT [facility] Urine Urine specimen obtained by clean catch procedure / Unknown Collection / Unknown 03/24/2025 1:08 PM EDT 03/24/2025 3:12 PM EDT [facility] - 03/24/2025 3:31 PM EDT In absence of clinical symptoms, the presence of pyuria, bacteria, and/or nitrites on the urinalysis result does not correlate with infection. Demarcus Ames MD URINE ORDERABLES Final Re sult Performing Organization Address [facility]/ZIP Co de Phone Number [facility]
[address] [place] [address], * Urine Culture - Urine, Urine, Clean Catch (03/24/2025 1:08 PM EDT) Urine Culture <25,000 CFU/mL Normal Urogenital Martina TOMASA 03/25/2025 11:10 AM EDT [facility] Urine Urine specimen obtained by clean catch procedure / Unknown Collection / Unknown 03/24/2025 1:08 PM EDT 03/24/2025 3:12 PM EDT [facility] - 03/25/2025 11:10 AM EDT Colonization of the urinary tract without infection is common. Treatment is discouraged unless the patient is symptomatic, , or undergoing an invasive urologic procedure. Demarcus Ames MD MICROBIOLOGY - GENERAL OR DERABLES Final Result Performing Organization Address City/[facility]/ZIP Co de Phone Number [facility]
[address] [place] [address], [place] [phone] * Tissue Pathology Exam (03/04/2025 10:39 AM EDT) Case Report Surgical Pathology Report Case: [id number] Authorizing Provider: Zac Mckeon MD Collected: 03/04/2025 10:39 AM Ordering Location: [facility] Received: 03/04/2025 10:57 AM OR Pathologist: Angeli Solomon DO Specimen: Parathyroid Gland, POSSIBLE RIGHT SUPERIOR PARATHYROID 11:25 AM EDT [facility] Clinical Information Hyperparathyroidism 11:25 AM EDT [facility] Final Diagnosis RIGHT SUPERIOR PARATHYROID GLAND, PARATHYROIDECTOMY: Hypercellular parathyroid tissue No evidence of malignancy identified 11:25 AM EDT [facility] at 1125 EDT Intraoperative Consultation Frozen section: Verbal report given to Dr. Mckeon via speakerphone on 03/04/2025 at 09:57 CDT. FROZEN SECTION DIAGNOSIS: Hypercellular parathyroid tissue present. ([facility], 1 cassette) Stains used for Immediate Evaluation are acceptable. 11:25 AM EDT [facility] Gross Description 1. Parathyroid Gland. Received fresh for frozen section labeled possible right superior parathyroid is a less than 1 g, 1.0 x 0.8 x 0.5 cm red nodule. The specimen is submitted entirely for frozen section and resubmitted in block 1A. LDP 11:25 AM EDT [facility] Microscopic Description The slides are reviewed and demonstrate histopathologic features supporting the above rendered diagnosis. 11:25 AM EDT [facility] Tissue Parathyroid structure / Unknown 03/04/2025 10:39 AM EDT 03/04/2025 9:57 AM EDT Zac Mckeon MD PATHOLOGY/CYTOLOGY ORDERAB LES Final Result [facility]
[address] [place] [address], * BH AN ETT AIRWAY (03/04/2025 10:20 AM EDT) Narrative Mercedes Vicente CRNA - 03/04/2025 10:20 AM EDT Mercedes Vicente CRNA 03/04/2025 10:24 AM Airway Reason: elective Date/Time: 03/04/2025 10:03 AM Airway not difficult General Information and Staff Patient location during procedure: OR RETURNED CASE INSPECTOR/CAA: Mercedes Vicente CRNA Indications and Patient Condition Indications for airway management: airway protection Preoxygenated: yes Mask difficulty assessment: 0 - not attempted Final Airway Details Final airway type: endotracheal airway Successful airway: NIM tube Cuffed: yes Successful intubation technique: video laryngoscopy and RSI Adjuncts used in placement: intubating stylet and cricoid pressure Endotracheal tube insertion site: oral Blade: Sawyer Blade size: 3 Cormack-Lehane Classification: grade I - full view of glottis Placement verified by: chest auscultation and capnometry Measured from: lips ETT/EBT to lips (cm): 20 Number of attempts at approach: 1 Assessment: lips, teeth, and gum same as pre-op and atraumatic intubation Additional Comments Negative epigastric sounds, Breath sound equal bilaterally with symmetric chest rise and fall. Easy intubation with Sawyer. NIM tube placement verified per Dr Mcekon. Trevon Zeng MD ANESTHESIA ORDERA BLES Final Result * Potassium (02/25/2025 3:32 PM EDT) Potassium 4.1 3.5 - 5.2 mmol/L 02/25/2025 4:40 PM EDT [facility] Comment:Slight hemolysis det ected by analyzer. Result may be falsely elevated. Blood Venipuncture / Unknown 02/25/2025 3:32 PM EDT 02/25/2025 4:11 PM EDT Zac Mckeon MD LAB BLOOD ORDERABLES Final Result [facility]
[address] [place] [id number], from Last 3 Months Insurance [facility] Care Teams Educational Programming Director Relationship Specialty Start Date End Date Juarez Griffin MD [address] [facility] [address] [place] [address] PCP - General Internal Medicine 05/30/23
--- OUTSIDE RECORDS SUMMARY | 2025-05-23 19:17 | XMS_ITS | Encounter Summary ---
[facility] Address [address] [place] [id number] Care Team Providers Care Branch Operations Coordinator Name Role Phone Juarez Griffin MD Primary Care Provider [phone] Encounter Details Date Type Department Care Team (Late st Contact Info) Description 03/25/2025 Telephone [facility] [address] [facility] [address] [address] Demarcus Ames MD [address] [address] Social History Tobacco Use Types Packs/Day Years Used Date Smoking Tobacco: Never Passive Smoke Exposure: Never Smokeless Tobacco: Never Alcohol Use Standard Drinks/Week Comments Not Currently 0 (1 standard drink = 0.6 oz pur e alcohol) Maybe 3 drinks annually [facility] Utilities Answer Date Recorded In the past 12 months has [employer], gas, oil, or water [employer] threatened to shut off services in your [...] and heating? Not hard at all 04/16/2024 [facility] [place] of Occupat ional Health - Occupational Stress [...] encounter Miscellaneous Notes * Telephone Encounter - Afsaneh Hernandez - 03/25/2025 8:38 AM EDT Left message for patient to call me. * Telephone Encounter - Afsaneh Hernandez - 03/25/2025 8:38 AM EDT ----- Message from Demarcus Ames sent at 03/25/2025 7:51 AM EDT ----- Regarding: RE: PCNL to move up Absolutely. ----- Message ----- From: Afsaneh Hernandez Sent: 03/24/2025 3:48 PM EDT To: Demarcus Ames MD Subject: PCNL to move up Is it okay to move this patient up from to ? documented in this encounter Plan of Treatment Upcoming Encounters Date Type Department Care Team (Late st Contact Info) Description 06/15/2025 8:40 AM EDT Telemedicine [facility] [address] [facility] [address] [address] Teressa Finley, PREETI 7[address] [facility] [address] [place] [address] 07/01/2025 1:00 PM EDT Appointment [facility] UL[facility]OUND [place] [address] [place] [address] 07/01/2025 2:00 PM EDT Appointment [facility] [place] [address] [place] [address] 07/06/2025 1:00 PM EDT Office Visit [facility] [address] [facility] [address] [place] [address] Teressa Finley, RAILROAD SWITCHMAN [address] 3 [facility] [address] [place] [address] 11/01/2025 1:30 PM EST Office Visit [facility] CARDIOLOGY [address] [place] [address] Yaneth Ugarte MD [address] [place] [address] documented as of this encounter Visit Diagnoses Not on filedocumented in this encounter Care Teams Branch Operations Coordinator Relationship Specialty Start Date End Date Juarez Griffin MD [address] [facility] [address] [facility] [address] [place] [address] PCP - General Internal Medicine 05/30/23 documented as of this encounter
--- OUTSIDE RECORDS SUMMARY | 2025-05-23 19:17 | XMS_ITS | Encounter Summary ---
[facility] Address [address] [place] [id number] Care Team Providers Care Provider Relations Representative Name Role Phone Juarez Griffin MD Primary Care Provider [phone] Encounter Details Date Type Department Care Team (Late st Contact Info) Description 04/20/2024 Telephone [facility] [address] [facility] [address] [address] Demarcus Ames MD [address] [address] Social History Tobacco Use Types Packs/Day Years Used Date Smoking Tobacco: Never Passive Smoke Exposure: Never Smokeless Tobacco: Never Alcohol Use Standard Drinks/Week Comments Yes 0 (1 standard drink = 0.6 oz pur e alcohol) rarely [facility] Utilities Answer Date Recorded In the past 12 months has [employer], gas, oil, or water [employer] threatened to shut off services in your [...] and heating? Not hard at all 04/16/2024 [employer] [place] of Occupat ional Health - Occupational Stress [...] Feels Unsafe at Home or Work/School no 04/16/2024 Feels Threatened by Someone no 03/29 Does Anyone Try to Keep You From Having Contact with Others or Doing Things Outside Your Home? no 04/16/2024 Physical Signs of Abuse Present no 04/16/2024 Housing Stability Answer Date Recorded Current Living Arrangements home 03/29 Potentially Unsafe Housing Conditions none 04/16/2024 Family and Community Support Answer Fady e [...] Difficulty Concentrating, Remembering or Making Decisions no 04/16/2024 Difficulty Managing Errands Independently no 04/16/2024 Education Answer Date Recorded Do you want help with school or training? For example, starting or completing job training or getting a high school diploma, GED or equivalent No 04/16/2024 Preferred Language Malaysian 04/16/2024 PHQ-2 Answer Date Recorded Retired PHQ-9: Brief [...] Description 06/15/2025 8:40 AM EDT Telemedicine [facility] UROLOG[facility] [address] [facility] [address] [address] Teressa Finley, SODA ROOM OPERATOR 793 [facility] [address] [address] 07/01/2025 1:00 PM EDT Appointment [facility] ULTRASOUND AT [address] [address] 07/01/2025 2:00 PM EDT Appointment [facility] CT AT [address] [address] 07/06/2025 1:00 PM EDT Office Visit [facility] UROLOGY [address] [facility] [address] [address] Teressa Finley, SODA ROOM OPERATOR 793 [facility] [address] [address] 11/01/2025 1:30 PM EST Office Visit [facility] CARDIOLOGY [address] [place] [address] Yaneth Ugarte MD [address] [place] [address] documented as of this encounter Visit Diagnoses Not on filedocumented in this encounter Additional Health Concerns Infection Onset Date Last Indicated Resolved Time ESBL 04/01/2024 04/01/2024 03/03/2025 6:48 AM EDT documented as of this encounter Care Teams Provider Relations Representative Relationship Specialty Start Date End Date Juarez Griffin MD [address] [facility] [address] [place] [address] PCP - General Internal Medicine 05/30/23 documented as of this encounter
--- OUTSIDE RECORDS SUMMARY | 2025-05-23 19:17 | XMS_ITS | Encounter Summary ---
[facility] Organization [facility] Address [address] [place] [phone] Care Team Providers Care Procedures Analyst Name Role Phone Juarez Griffin MD Primary Care Provider [phone] Encounter Details Date Type Department Care Team (Late st Contact Info) Description 04/16/2024 Retail Pharmacy Consultation [facility] [address] [place] [address] [facility] [address] [place], [place] [id number] Social History Tobacco Use Types Packs/Day Years Used Date Smoking Tobacco: Never Passive Smoke Exposure: Never Smokeless Tobacco: Never Alcohol Use Standard Drinks/Week Comments Yes 0 (1 standard drink = 0.6 oz pur e alcohol) rarely C Utilities Answer Date Recorded In the past 12 months has [employer], gas, oil, or water [employer] threatened to shut off services in your [...] and heating? Not hard at all 04/16/2024 [facility] [place] of Occupat ional Health - Occupational Stress [...] money to buy more. Never true 04/16/20 Within the past 12 months, t he [...] GED or equivalent No 04/16/2024 Preferred Language [place] Citizen 04/16/2024 PHQ-2 Answer Date Recorded Retired PHQ-9: [...] Info) Description 06/15/2025 8:40 AM EDT Telemedicine [facility] UROLOGY [address] [place] [address] [address] Teressa Finley, PREETI 793 [facility] [address] [address] 07/01/2025 1:00 PM EDT Appointment [facility] ULTRASOUND AT [address] [address] 07/01/2025 2:00 PM EDT Appointment [facility] CT AT [address] [address] 07/06/2025 1:00 PM EDT Office Visit [facility] UROLOGY [address] [place] [address] [address] Teressa Finley, PREETI 793 [facility] [address] [address] 11/01/2025 1:30 PM EST Office Visit [facility] CARDIOLOGY [address] [place] [address] Yaneth Ugarte MD [address] [place] [address] documented as of this encounter Visit Diagnoses Not on filedocumented in this encounter Additional Health Concerns Infection Onset Date Last Indicated Resolved Time ESBL 04/01/2024 04/01/2024 03/03/2025 6:48 AM EDT documented as of this encounter Care Teams Procedures Analyst Relationship Specialty Start Date End Date Juarez Griffin MD [address] [place] [address] [place] [address] PCP - General Internal Medicine 05/30/23 documented as of this encounter
--- OUTSIDE RECORDS SUMMARY | 2025-05-23 19:17 | XMS_ITS | Encounter Summary ---
[facility] Address [address] [place] [id number] Care Team Providers Care Roll Forming Machine Set Up Mechanic Name Role Phone Juarez Griffin MD Primary Care Provider [phone] Encounter Details Date Type Department Care Team (Late st Contact Info) Description 04/29/2025 Telephone [facility] [address] [place] [address] Yaneth Ugarte MD [address] [place] [address] Social History Tobacco Use Types Packs/Day Years Used Date Smoking Tobacco: Never Passive Smoke Exposure: Never Smokeless Tobacco: Never Alcohol Use Standard Drinks/Week Comments Not Currently 0 (1 standard drink = 0.6 oz pur e alcohol) Maybe 3 drinks annually [facility] Utilities Answer Date Recorded In the past 12 months has [employer], gas, oil, or water [employer] threatened to shut off services in your [...] and heating? Not hard at all 04/16/2024 [facility] [place] [facility] Occupat ional Health - Occupational Stress [...] or training? Not on file Preferred Language Cameroonian 02/25/2025 PHQ-2 Answer Date Recorded Retired PHQ-9: [...] encounter Miscellaneous Notes * Telephone Encounter - Lissy Craig RegSched Rep - 04/29/2025 9:43 AM EDT Summary: REQ'D LABS AND OV NOTE FROM PCP REQUESTED LAST SET OF LABS AND MARCH 2025 OV NOTE FROM JUAN @ [facility] GRIFFIN[facility] OFFICE 04/29 @ 9:44AM-TLG documented in this encounter Plan of Treatment Upcoming Encounters Date Type Department Care Team (Late st Contact Info) Description 06/15/2025 8:40 AM EDT Telemedicine [facility] [address] [place] [address] [address] Teressa Finley, PREETI 793 [facility] [address] [address] 07/01/2025 1:00 PM EDT Appointment [facility] ULTRASOUND AT [place] [address] [place] [address] 07/01/2025 2:00 PM EDT Appointment [facility] CT AT [place] [address] [place] [address] 07/06/2025 1:00 PM EDT Office Visit [facility] 793 [facility] [address] [address] Teressa Finley, [employer] [address] [place] [address] 11/01/2025 1:30 PM EST Office Visit [facility] [address] [place] [address] Yaneth Ugarte MD [address] [place] [address] documented as of this encounter Visit Diagnoses Not on filedocumented in this encounter Care Teams Roll Forming Machine Set Up Mechanic Relationship Specialty Start Date End Date Juarez Griffin MD [address] [facility] [address] [place] [address] PCP - General Internal Medicine 05/30/23 documented as of this encounter
--- OUTSIDE RECORDS SUMMARY | 2025-05-23 19:17 | XMS_ITS | Clinical Summary ---
Author Organization [facility] ([place], [place], [place], [place]) Address [address] [place] [address] Care Team Providers Care Window Repairer Name Role Phone Juarez Griffin MD Primary Care Provider [phone] Allergies Active Allergy Reactions Criticality Noted Date [...] Do you speak a language other than M[facility]ese at [facility]? No 12/27/2023 Do you want [...] Completed 10/30/2023, Medical Devices Implanted Type Area Buyer Agent Device Identifier Shelf Expiration Date Model / Serial / Lot Loop Recorder LOOP RECORDER Left: Chest Insurance [employer] [facility] OF [place] Advance Directives For more information, please contact: [phone] * Full Code (Latest Code Status on File) Date Activated Date Inactivated Comments 12/27/2023 3:21 AM 12/30/2023 2:53 PM -Attempt Resus citation if person has no pulse and is not breathing. -If no pulse or not breathing attempt CPR/CODE. -Call Rapid Response if patient is in distress. Care Teams Window Repairer Relationship Specialty Start Date End Date Juarez Griffin MD [address] [place] [address] [place] [address] PCP - General General Internal Medicine 12/30/23
--- OUTSIDE RECORDS SUMMARY | 2025-05-23 19:18 | XMS_ITS | Encounter Summary ---
[facility] Address [address] [place] [address] Care Team Providers Care Environmental Monitoring Technician Name Role Phone Juarez Griffin MD Primary Care Provider [phone] Reason for Visit * Reason Onset Date Comments DR AMES - SCHEDULING 03/31/2025 Encounter Details Date Type Department Care Team (Late st Contact Info) Description 03/31/2025 Telephone [facility] UR[facility] 793 [facility] [address] [address] Demarcus Ames MD [address] [address] [address] AMES - SCHEDULING Social History Tobacco Use Types Packs/Day Years Used Date Smoking Tobacco: Never Passive Smoke Exposure: Never Smokeless Tobacco: Never Alcohol Use Standard Drinks/Week Comments Not Currently 0 (1 standard drink = 0.6 oz pur e alcohol) Maybe 3 drinks annually [facility] Utilities Answer Date Recorded In the past 12 months has [employer], [place] [employer], oil, or water [employer] threatened to shut off services in your [...] hard at all 04/16/2024 [facility] [place] of Occupat ional Health - Occupational Stress [...] or training? Not on file Preferred Language [place] Citizen 02/25/2025 PHQ-2 Answer Date Recorded Retired PHQ-9: [...] 9:18 AM EDT Cathy Curtis RN * [place] Suicide Severity Rating Scale (Screener/Recent Self-Report) Question Answer Date of Assessment Author 6. Suicidal Behavior (Lifetime) No 9:18 AM EDT Vandana Curtis RN documented as of this encounter Miscellaneous Notes * Telephone Encounter - Ashleigh Crowell - 03/31/2025 1:55 PM EDT Caller: LISSY VALDEZ Relationship to patient: SELF Best call back number: [phone] Chief complaint: PATIENT HAD SURGERY TODAY AND CYSTO IS SCHEDULED FOR 04-12-25. STATED SHE NEEDS SAUMYA SEEN ON THE . PLEASE REACH OUT ON CELL. Type of visit: CYSTO WITH STENT REMOVAL SHE IS BEING DC RIGHT NOW SO IF YOU CALL AND SHE DOES NOT ANSWER YOU MAY LEAVE A MESSAGE. documented in this encounter Plan of Treatment Upcoming Encounters Date Type Department Care Team (Late st Contact Info) Description 06/15/2025 8:40 AM EDT Telemedicine [facility] UROLOGY 793 [facility] [address] [address] Teressa Finley, PARTY CHIEF 793 [facility] [address] [address] 07/01/2025 1:00 PM EDT Appointment [facility] ULTRASOUND AT [place] [address] [place] [address] 07/01/2025 2:00 PM EDT Appointment [facility] CT AT [place] [address] [place] [address] 07/06/2025 1:00 PM EDT Office Visit [facility] UR[facility] 793 [facility] [address] [address] Teressa Finley, PARTY CHIEF 793 [facility] [address] [address] 11/01/2025 1:30 PM EST Office Visit [facility] CARDIOLOGY [address] [place] [address] Yaneth Ugarte MD [address] [place] [address] documented as of this encounter Visit Diagnoses Not on filedocumented in this encounter Care Teams Environmental Monitoring Technician Relationship Specialty Start Date End Date Juarez Griffin MD [facility]10 [facility] [address] [place] [address] PCP - General Internal Medicine 05/30/23 documented as of this encounter
--- OUTSIDE RECORDS SUMMARY | 2025-05-23 19:18 | XMS_ITS | Encounter Summary ---
Author Organization [facility] Address [address] [place] [address] Care Team Providers Care Last Waxer Name Role Phone Juarez Griffin MD Primary Care Provider [phone] Encounter Details Date Type Department Care Team (Latest Contact Info) Description 03/31/2025 Travel Social History Tobacco Use Types Packs/Day Years Used Date Smoking Tobacco: Never Passive Smoke Exposure: Never Smokeless Tobacco: Never Alcohol Use Standard Drinks/Week Comments Not Currently 0 (1 standard drink = 0.6 oz pur e alcohol) Maybe 3 drinks annually [facility] Utilities Answer Date Recorded In the past 12 months has [employer], gas, oil, or water [employer] threatened to shut off services in your [...] and heating? Not hard at all 04/16/2024 [facility] [place] of Occupat ional Health - Occupational Stress [...] or training? Not on file Preferred Language Polish 02/25/2025 PHQ-2 Answer Date Recorded Retired PHQ-9: [...] 9:18 AM EDT Cathy Curtis RN * [place] Suicide Severity Rating Scale (Screener/Recent Self-Report) Question Answer Date of Assessment Author 6. Suicidal Behavior (Lifetime) No 9:18 AM EDT Vandana Curtis RN documented as of this encounter Plan of Treatment Upcoming Encounters Date Type Department Care Team (Late st Contact Info) Description 06/15/2025 8:40 AM EDT Telemedicine [facility] UROLOGY [address] [place] [address] [address] Teressa Finley, ADJUNCT FACULTY INSTRUCTOR 793 [facility] [address] [address] 07/01/2025 1:00 PM EDT Appointment [facility] ULTR[facility] AT [address] [address] 07/01/2025 2:00 PM EDT Appointment [facility] [address] AT [place] [address] [place] [address] 07/06/2025 1:00 PM EDT Office Visit [facility] 793 [facility] [address] [address] Teressa Finley, ADJUNCT FACULTY INSTRUCTOR [address] [place] [address] 11/01/2025 1:30 PM EST Office Visit [facility] [address] [place] [address] Yaneth Ugarte MD [address] [place] [address] documented as of this encounter Visit Diagnoses Not on filedocumented in this encounter Care Teams Last Waxer Relationship Specialty Start Date End Date Juarez Griffin MD [address] [facility] [address] [place] [address] PCP - General Internal Medicine 05/30/23 documented as of this encounter
[2025-05-23] MEDS: BACITRACIN OINT 0.9GM UDP 1 EACH TP (19:22)
[2025-05-23 19:26] VITALS: BP 122/95; PULSE 90; RESP 18; TEMP 37.1; O2SAT 97
== END 2025-05-23 19:31 | disposition home or self-care (01) ==
PROVIDERS: Emergency Provider Student in an Organized Health Care Education/Training Program; PCP Internal Medicine
DX: T81.31XA Disruption of external operation (surgical) wound, not elsewhere classified, initial encounter (principal); Z87.442 Personal history of urinary calculi
CPT/HCPCS: 99283

== ENCOUNTER 2025-06-12 14:07 | Outpatient (CLI) | payer OTHER, SELFPAY ==
--- OUTSIDE RECORDS SUMMARY | 2025-05-03 13:30 | XMS_ITS | Encounter Summary ---
Author Organization [facility] Address [address] [place] [address] Care Team Providers Care Clothing Manager Name Role Phone Juarez Griffin MD Primary Care Provider [phone] Reason for Visit * Reason Comments Edema [...] Description 05/03/2025 1:30 PM EDT Office Visit [facility] CARDIOLOGY [address] [place] [address] Yaneth Ugarte MD [address] [place] [address] Hypercholesterolemia (Primary Dx); PVC (premature ventricular contraction); Precordial chest pain; Swelling of lower extremity Social History Tobacco Use Types Packs/Day Years Used Date Smoking Tobacco: Never Passive Smoke Exposure: Never Smokeless Tobacco: Never Tobacco Cessation:Counseling Given: Yes Alcohol Use Standard Drinks/Week Comments Not Currently 0 (1 standard drink = 0.6 oz pur e alcohol) Maybe 3 drinks annually [facility] Utilities Answer Date Recorded In [...] and heating? Not hard at all 04/16/2024 [facility] of Occupat ional Health [...] 05/2025 Potentially Unsafe Housing Conditions Not on ladnon e 03/04/2025 Family and Community Support Answer [...] or training? Not on file Preferred Language Kuwaiti 02/25/2025 PHQ-2 Answer Date Recorded Retired PHQ-9: [...] MG/0.1ML nasal spray, Call 911. Don't prime. [place] in 1 nostril for overdose. Repeat in [...] Chronic chest pain followed by Dr. Ugarte -[facility] 03/05/24 Chronic diastolic (congestive) heart failure cardiac [...] file. Laura Ugarte MD Cardiology and Sleep [facility] 05/03/2025 Please note that this explicitly excludes [...] Info) Description 07/01/2025 1:00 PM EDT Appointment [facility]OUND [place] [address] [place] [address] 07/01/2025 2:00 PM EDT Appointment [facility] [place] [address] [place] [address] 07/06/2025 1:00 PM EDT Office Visit [facility] UROLOGY [address] [phone] Teressa Finley, LOGGING ASSISTANT [address] [address] 11/01/2025 1:30 PM EST Office Visit [facility] CARDIOLOGY [address] [place] [address] Yaneth Ugarte MD [address] [place] [address] documented as of this encounter Procedures [...] 01/2024 Chronic chest pain followed by Dr. Ugatre -[facility] 03/05/24 Chronic diastolic (congestive) heart failure [...] 03/04/2025 Procedure: PARATHYROIDECTOMY; Surgeon: Zac Mckeon MD;Location: [facility] OR; Service: General; Laterality: N/A; PERCUTANEOUS NEPHROSTOLITHOTOMY Right 04/15/2024 Procedure: CYSTOSCOPY & BALLOON OCCLUSION CATHETER PLACEMENT, PRIMARYPERCUTANEOUS ACCESS, NEPHROSTOLITHOTOMY PERCUTANEOUS, WITH STENT EXCHANGE;Surgeon: Demarcus Ames MD; Location: [facility] OR; Service:Urology; Laterality: Right; PERCUTANEOUS NEPHROSTOLITHOTOMY Left [...] on file. Laura Ugarte MD Card[facility] and [facility] 05/03/2025 Please note that this explicitly excludes [...] extremity documented in this encounter Care Teams Clothing Manager Relationship Specialty Start Date End Date Juarez Griffin MD [address] [facility] [address] [place] [address] PCP - General Internal Medicine 05/30/23 documented as of this encounter
--- OUTSIDE RECORDS SUMMARY | 2025-06-14 11:21 | XMS_ITS | Encounter Summary ---
[facility] Address [address] [place] [id number] Care Team Providers Care Pewter Caster Name Role Phone Juarez Griffin MD Primary Care Provider [phone] Encounter Details Date Type Department Care Team (Late st Contact Info) Description 04/29/2025 Telephone [facility] [address] [place] [address] Yaneth Ugarte MD [address] [place] [address] Social History Tobacco Use Types Packs/Day Years Used Date Smoking Tobacco: Never Passive Smoke Exposure: Never Smokeless Tobacco: Never Alcohol Use Standard Drinks/Week Comments Not Currently 0 (1 standard drink = 0.6 oz pur e alcohol) Maybe 3 drinks annually [facility] Utilities Answer Date Recorded In the past 12 months has [employer], gas, oil, or water [employer] threatened to shut off services in your [...] and heating? Not hard at all 04/16/2024 [employer] [place] of Occupat ional Health - Occupational Stress [...] or training? Not on file Preferred Language Arabic 02/25/2025 PHQ-2 Answer Date Recorded Retired PHQ-9: [...] Info) Description 07/01/2025 1:00 PM EDT Appointment [facility] [place] [address] [place] [address] 07/01/2025 2:00 PM EDT Appointment [facility] [place] [address] [place] [address] 07/06/2025 1:00 PM EDT Office Visit [facility] [address] [place] [address] Teressa Finley, PREETI [address] [place] [address] 11/01/2025 1:30 PM EST Office Visit [facility] [address] [address] Yaneth Ugarte MD [address] [place] [address] documented as of this encounter Visit Diagnoses Not on filedocumented in this encounter Care Teams Pewter Caster Relationship Specialty Start Date End Date Juarez Griffin MD [address] [facility] [address] [place] [address] PCP - General Internal Medicine 05/30/23 documented as of this encounter
--- OUTSIDE RECORDS SUMMARY | 2025-06-14 11:21 | XMS_ITS | Encounter Summary ---
[facility] Address [address] [place] [address] Care Team Providers Care Loss Mitigation Specialist Name Role Phone Juarez Griffin MD Primary Care Provider [phone] Encounter Details Date Type Department Care Team (Late st Contact Info) Description 05/10/2025 Results Follow-Up [facility] [address] [place] [address] Yaneth Ugarte MD [address] [place], [place] [id number] Social History Tobacco Use Types Packs/Day Years Used Date Smoking Tobacco: Never Passive Smoke Exposure: Never Smokeless Tobacco: Never Alcohol Use Standard Drinks/Week Comments Not Currently 0 (1 standard drink = 0.6 oz pur e alcohol) Maybe 3 drinks annually [facility] Utilities Answer Date Recorded In the past 12 months has [employer], gas, oil, or water [employer] threatened to shut off services in your [...] and heating? Not hard at all 04/16/2024 [employer] of Occupat ional Health - Occupational Stress [...] or training? Not on file Preferred Language Yi 02/25/2025 PHQ-2 Answer Date Recorded Retired PHQ-9: [...] Info) Description 07/01/2025 1:00 PM EDT Appointment [facility] [place] [address] [place] [address] 07/01/2025 2:00 PM EDT Appointment [facility] [place] [address] [place] [address] 07/06/2025 1:00 PM EDT Office Visit [facility] [address] [address] Teressa Finley, PREETI [address] [id number] 11/01/2025 1:30 PM EST Office Visit [facility] [address] [place] [address] Yaneth Ugarte MD [address] [place] [address] documented as of this encounter Visit Diagnoses Not on filedocumented in this encounter Care Teams Loss Mitigation Specialist Relationship Specialty Start Date End Date Juarez Griffin MD [facility] [address] [place] [address] PCP - General Internal Medicine 05/30/23 documented as of this encounter
--- OUTSIDE RECORDS SUMMARY | 2025-06-14 11:21 | XMS_ITS | Encounter Summary ---
Author Organization [facility] Address [address] [place] [id number] Care Team Providers Care Block Cuber Name Role Phone Juarez Griffin MD Primary Care Provider [phone] Encounter Details Date Type Department Care Team (Late st Contact Info) Description 05/03/2025 Patient rounding ([facility] only) [facility] [address] [place] [address] Yaneth Ugarte MD [address] [place] [address] Social History Tobacco Use Types Packs/Day Years Used Date Smoking Tobacco: Never Passive Smoke Exposure: Never Smokeless Tobacco: Never Alcohol Use Standard Drinks/Week Comments Not Currently 0 (1 standard drink = 0.6 oz pur e alcohol) Maybe 3 drinks annually [facility] Utilities Answer Date Recorded In the past 12 months has [employer], gas, oil, or water [employer] threatened to shut off services in your [...] heating? Not hard at all 04/16/2024 [facility] [place] of Occupat ional Health - Occupational Stress [...] or training? Not on file Preferred Language Ukrainian 02/25/2025 PHQ-2 Answer Date Recorded Retired PHQ-9: [...] is Landy Alonzo and I am the Refrigerated Cargo Clerk for [facility] Cardiology [facility]. I would like to thank [...] your first visit to us as a [facility] facility? In the next few days, you will be receiving a Patient Experience Survey. Thank you for taking the time to answer a few questions today. I hope you have a good day. documented in this encounter Plan of Treatment Upcoming Encounters Date Type Department Care Team (Late st Contact Info) Description 07/01/2025 1:00 PM EDT Appointment [facility] [place] [address] [place] [address] 07/01/2025 2:00 PM EDT Appointment [facility] [address] [facility] [place] [address] [place] [address] 07/06/2025 1:00 PM EDT Office Visit [facility] [address] [place] [address] Teressa Finley, CRIBBING SETTER [address] [place] [address] 11/01/2025 1:30 PM EST Office Visit [facility] [address] [place] [address] Yaneth Ugarte MD [address] [place] [address] documented as of this encounter Visit Diagnoses Not on filedocumented in this encounter Care Teams Block Cuber Relationship Specialty Start Date End Date Juarez Griffin MD [address] [facility] [address] [facility] [address] [place] [address] PCP - General Internal Medicine 05/30/23 documented as of this encounter
--- OUTSIDE RECORDS SUMMARY | 2025-06-14 11:21 | XMS_ITS | Encounter Summary ---
[facility] Address [address] [place] [address] Care Team Providers Care Laborer Orchard Name Role Phone Juarez Griffin MD Primary Care Provider [phone] Encounter Details Date Type Department Care Team (Late st Contact Info) Description 05/11/2025 Telephone [facility] [address] [place] [address] Shell Diaz RegSched Rep Social History Tobacco Use Types Packs/Day Years Used Date Smoking Tobacco: Never Passive Smoke Exposure: Never Smokeless Tobacco: Never Alcohol Use Standard Drinks/Week Comments Not Currently 0 (1 standard drink = 0.6 oz pur e alcohol) Maybe 3 drinks annually [facility] Utilities Answer Date Recorded In the past 12 months has [employer], gas, oil, or water company threatened [...] and heating? Not hard at all 04/16/2024 [facility] [place] of Occupat ional Health - Occupational Stress [...] or training? Not on file Preferred Language Turkish 02/25/2025 PHQ-2 Answer Date Recorded Retired PHQ-9: [...] Info) Description 07/01/2025 1:00 PM EDT Appointment [facility] [place] [address] [place] [address] 07/01/2025 2:00 PM EDT Appointment [facility] [place] [address] [place] [address] 07/06/2025 1:00 PM EDT Office Visit [facility] [address] [phone] Teressa Finley, BROOMCORN PRESS FEEDER [address] [facility] [address] [place], [place] [id number] 11/01/2025 1:30 PM EST Office Visit [facility] [address] [place] [address] Yaneth Ugarte MD [address] [place] [address] documented as of this encounter Visit Diagnoses Not on filedocumented in this encounter Care Teams Laborer Orchard Relationship Specialty Start Date End Date Juarez Griffin MD [address] [place] [facility] [address] [facility] [address] [place] [address] PCP - General Internal Medicine 05/30/23 documented as of this encounter
--- OUTSIDE RECORDS SUMMARY | 2025-06-14 11:21 | XMS_ITS | Encounter Summary ---
Author Organization [facility] Address [address] [place] [address] Care Team Providers Care Produce Inspector Name Role Phone Juarez Griffin MD Primary Care Provider [phone] Encounter Details Date Type Department Care Team (Latest Contact Info) Description 05/03/2025 Travel Social History Tobacco Use Types Packs/Day Years Used Date Smoking Tobacco: Never Passive Smoke Exposure: Never Smokeless Tobacco: Never Alcohol Use Standard Drinks/Week Comments Not Currently 0 (1 standard drink = 0.6 oz pur e alcohol) Maybe 3 drinks annually [facility] Utilities Answer Date Recorded In the past 12 months has [employer] electric, gas, oil, or water [employer] threatened to shut off services in your [...] and heating? Not hard at all 04/16/2024 [facility] [place] of Occupat ional Health - Occupational Stress [...] Info) Description 07/01/2025 1:00 PM EDT Appointment [facility] [place] [address] [place] [address] 07/01/2025 2:00 PM EDT Appointment [facility] [place] [address] [place] [address] 07/06/2025 1:00 PM EDT Office Visit [facility] [address] [facility] [address] [place] [phone] Teressa Finley, PREETI [address] [address] 11/01/2025 1:30 PM EST Office Visit [facility] [address] [place] [address] Yaneth Ugarte MD [address] [place] [address] documented as of this encounter Visit Diagnoses Not on filedocumented in this encounter Care Teams Produce Inspector Relationship Specialty Start Date End Date Juarez Griffin MD [address] [place] [facility] [address] [place] [address] PCP - General Internal Medicine 05/30/23 documented as of this encounter
--- OUTSIDE RECORDS SUMMARY | 2025-06-14 11:22 | XMS_ITS | Encounter Summary ---
Author Organization [facility] Address [address] [place] [address] Care Team Providers Care Farrowing Worker Name Role Phone Juarez Griffin MD Primary Care Provider Karen Naqvi DO Unavailable [phone] Encounter Details Date Type Department Care Team ([facility] st Contact Info) Description 02/12/2024 Orders Only External Location [address] [place] [address] Gennaro Cuevas MD [facility]0 [facility] [address] [place] [address] Social History Tobacco Use Types Packs/Day Years [...] 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 Source: [facility]. This patient will require contact precautions indefinitely. 04/01/2024 documented as of this encounter Care Teams Farrowing Worker Relationship Specialty Start Date End Date Juarez Griffin MD [address] [place] [address] PCP - General 03/10/21 Karen Naqvi DO [facility] [address] [place] [address] Referring Physician Obstetrics and Gynecology 09/23/24 documented as of this encounter
--- OUTSIDE RECORDS SUMMARY | 2025-06-14 11:22 | XMS_ITS | Encounter Summary ---
Author Organization [facility] Address [address] [place] [address] Care Team Providers Care Character Actor Name Role Phone Juarez Griffin MD Primary Care Provider [phone] Reason for Visit * Reason Onset Date Comments DR AMES - POST OP FOLLOW UP 03/31/2025 Encounter Details Date Type Department Care Team (Late st Contact Info) Description 03/31/2025 Telephone [facility] UROLOGY [address] [place] [address] [address] Demarcus Ames MD [address] [address] [address] AMES - POST OP FOLLOW UP Social History Tobacco Use Types Packs/Day Years Used Date Smoking Tobacco: Never Passive Smoke Exposure: Never Smokeless Tobacco: Never Alcohol Use Standard Drinks/Week Comments Not Currently 0 (1 standard drink = 0.6 oz pur e alcohol) Maybe 3 drinks annually [facility] Utilities Answer Date Recorded In the past 12 months has [employer], gas, oil, or water [employer] threatened to shut off services in your [...] hard at all 04/16/2024 [facility] [place] [facility] - Occupational Stress Questionnaire [...] 9:18 AM EDT Cathy Curtis RN * [place] Suicide Severity Rating Scale (Screener/Recent Self-Report) Question Answer Date of Assessment Author 6. Suicidal Behavior (Lifetime) No 9:18 AM EDT Vandana Curtis RN documented as of this encounter Miscellaneous Notes * Telephone Encounter - Emily Mendez CMA - 03/31/2025 2:54 PM EDT Pt scheduled with front end ui developer JUAN MIGUEL Christianson * Telephone Encounter [...] [facility] [place] [address] [place] [address] 07/01/2025 2:00 PM EDT Appointment [facility] [place] [address] [place] [address] 07/06/2025 1:00 PM EDT Office Visit [facility] UR[facility]Y [address] [place] [address] Teressa Finley APRN [address] [place] [facility] [address] [place] [address] 11/01/2025 1:30 PM EST Office Visit [facility] CARDIOLOGY [address] [place] [address] Yaneth Ugarte MD [address] [place] [address] documented as of this encounter Visit Diagnoses Not on filedocumented in this encounter Care Teams Character Actor Relationship Specialty Start Date End Date Juarez Griffin MD [address] [facility] [address] [place] [id number] PCP - General Internal Medicine 05/30/23 documented as of this encounter
--- OUTSIDE RECORDS SUMMARY | 2025-06-14 11:22 | XMS_ITS | Encounter Summary ---
Author Organization [facility] Address [address] [place] [address] Care Team Providers Care Window Decorator Name Role Phone Jaurez Griffin MD Primary Care Provider [phone] Reason for Visit * Reason Onset Date Comments DR AMES-CLINICAL 03/15/2025 Encounter Details Date Type Department Care Team (Late st Contact Info) Description 03/15/2025 Telephone [facility] UROLOGY [address] [place] [address] [address] Demarcus Ames MD [address] [address] [address] AMES-CLINICAL Social History Tobacco Use Types Packs/Day Years Used Date Smoking Tobacco: Never Passive Smoke Exposure: Never Smokeless Tobacco: Never Alcohol Use Standard Drinks/Week Comments Not Currently 0 (1 standard drink = 0.6 oz pur e alcohol) Maybe 3 drinks annually [facility] Utilities Answer Date Recorded In the past 12 months has [employer], oil, or water [employer] threatened to shut off services in your [...] and heating? Not hard at all 04/16/2024 [facility] of Occupat ional Health - Occupational Stress [...] 9:18 AM EDT Cathy Curtis RN * [place] Suicide Severity Rating Scale (Screener/Recent Self-Report) Question [...] that day? * Telephone Encounter - Charlene Peerira RegSched Rep - 03/15/2025 11:32 AM EDT Provider: DR AMES Caller: Lissy Valdez Relationship to Patient: Self Reason for Call: PT CALLED TO SEE IF SURGERY CAN BE MOVED UP [place]. PT WAS SEEN IN ED AT [facility] 03/11/25 - PT HAD ANOTHER KIDNEY [...] Info) Description 07/01/2025 1:00 PM EDT Appointment [facility] ULTRASOUND AT [address] [address] 07/01/2025 2:00 PM EDT Appointment [facility] CT AT [place] [address] [place] [address] 07/06/2025 1:00 PM EDT Office Visit [facility] UROLOGY [address] [place] [address] [phone] Teressa Finley APRN 7[address] [facility] [address] [address] [address] 11/01/2025 1:30 PM EST Office Visit [facility] CARDIOLOGY [address] [place] [address] Yaneth Ugarte MD [address] [place] [address] documented as of this encounter Visit Diagnoses Not on filedocumented in this encounter Care Teams Window Decorator Relationship Specialty Start Date End Date Juarez Griffin MD [address] [place] [address] [place] [address] PCP - General Internal Medicine 05/30/23 documented as of this encounter
--- OUTSIDE RECORDS SUMMARY | 2025-06-14 11:22 | XMS_ITS | Encounter Summary ---
Author Organization [facility] Address [address] [place] [id number] Care Team Providers Care Sales Service Rep Name Role Phone Juarez Griffin MD Primary Care Provider [phone] Encounter Details Date Type Department Care Team (Late st Contact Info) Description 04/20/2024 Telephone [facility] UROLOGY [address] [facility] [address] [address] Demarcus Ames MD [address] [address] Social History Tobacco Use Types Packs/Day Years Used Date Smoking Tobacco: Never Passive Smoke Exposure: Never Smokeless Tobacco: Never Alcohol Use Standard Drinks/Week Comments Yes 0 (1 standard drink = 0.6 oz pur e alcohol) rarely [facility] Utilities Answer Date Recorded In the past 12 months has [employer], gas, oil, or water [employer] threatened to shut off services in your [...] and heating? Not hard at all 04/16/2024 [facility] of Occupat ional Health - Occupational Stress [...] GED or equivalent No 04/16/2024 Preferred Language Yi 04/16/2024 PHQ-2 Answer Date Recorded Retired PHQ-9: [...] Description 07/01/2025 1:00 PM EDT Appointment [facility] ULTRASOUND AT [place] [address] [place] [address] 07/01/2025 2:00 PM EDT Appointment [facility] [address] AT [place] [address] [place] [address] 07/06/2025 1:00 PM EDT Office Visit [facility] UROLOGY [address] [address] Teressa Finley, COLLEGE OR UNIVERSITY BUSINESS MANAGER [address] [address] 11/01/2025 1:30 PM EST Office Visit [facility] CARDIOLOG[facility] [address] [place] [address] Yaneth Ugarte MD [address] [place] [address] documented as of this encounter Visit Diagnoses Not on filedocumented in this encounter Additional Health Concerns Infection Onset Date Last Indicated Resolved Time ESBL 04/01/2024 04/01/2024 03/03/2025 6:48 AM EDT documented as of this encounter Care Teams Sales Service Rep Relationship Specialty Start Date End Date Juarez Griffin MD [address] [facility] [address] [place] [address] PCP - General Internal Medicine 05/30/23 documented as of this encounter
--- OUTSIDE RECORDS SUMMARY | 2025-06-14 11:22 | XMS_ITS | Clinical Summary ---
Author Organization [facility] Address [address] [place] [address] Care Team Providers Care Supervisor Weaving Name Role Phone Juarez Griffin MD Primary Care Provider [phone] Karen Naqvi DO Unavailable [phone] Allergies Active Allergy Reactions Criticality Noted Date [...] pu lmonary disease) with chronic bronchitis 05/22/2006 Immunizations Immunization Administration Dates Next Due Influenza, Injectable, MDCK, trivalent, PF 08/05 Influenza, Unspecified 10/29/2022 Pneumococcal Conjugate PCV 13 09/06/2021 Zoster, Recombinant 10/30/2023,05/27/2023 Family History Medical History Relation Name Comments Diabetes Father Wallace Heart disease Father [place] Hypertension Father Wallace Dementia Mother Marzena Hypertension Mother Marzena Cancer Mother's Brother Lino Heart disease Mother's Brother Lino Diabetes insipidus Other 1 Hypertension Other 2 Lupus Other 3 Cancer Paternal Grandfather Unknown Anesthesia problems Sister Marta Diabetes Sister Marta Heart disease Sister Marta Hypertension Sister Marta Relation Name Status Comments Father [place] Mother Marzena Mother's Brother Lino Other 1 [...] drink first t yue in the morning (EYE-BOOTH OPERATOR) to steady your nerves or to get [...] PPSV23) 11/01/2021 09/06/2021 [facility]-Breast Cancer Screening 2023 [id number] Vaccine (3 - season) 2024 10/07/2022, 08/21/2021 [facility]-Diabetes: Hemoglobin [...] this topic Medical Devices Implanted Type Area Herb Digger Device Identifier Shelf Expiration Date Model / Serial / Lot Stent Ureteral Double Pigtail Pos 6fr 24cm - [id number] - [id number] Implanted:Qty: 1 on 04/11/2024 by Harvey Macdonald MD at [facility] Stent Right: U[id number] 01/02/2026 [id number] / [id number] / [id number] Loop Recorder-2016 Implanted:04/28 (Quantity not on file) Chest Medtronic [id number] / / Procedures Procedure Name Priority Date/Time Associated Diagnosis Comments HEPATITIS C ANTIBODY - ED W/REFLEX TO HCV QUANT PCR STAT 04/10/2024 6:11 PM EDT ED HIV 1/2 ANTIBODY/ANTIGEN SCREEN WITH REFLEX TO HIV I/II DIFFERENTIATION STAT 04/10/2024 6:11 PM EDT HEMOGLOBIN A1C Add-On 04/10/2024 6:11 PM EDT from Last 3 Months or Most Recently Relevant to Health Maintenance Results * ED HIV 1/2 Antibody/Antigen Screen w/Reflex to HIV 1/2 Differentiation (04/10/2024 6:11 PM EDT) HIV 1 & 2 Antibody/Antigen Screen Non Reactive Non Reactive 04/10/2024 7:25 PM EDT [facility] Comment:Screening for HIV 1 & 2 antibodies, and P24 antigen is NONREACTIVE. No confirmatory testing is required. Blood Venous blood specimen / Unknown Venipuncture / Unknown 04/10/2024 6:11 PM EDT 04/10/2024 6:27 PM EDT us Susan Mcclure MD LAB BLOOD ORDERABLES Final Re sult [facility] [address] [place] [address] * Hepatitis C Antibody - ED (04/10/2024 6:11 PM EDT) Hepatitis C Antibody Negative Negative 04/10/2024 7:24 PM EDT [facility] Blood Venous blood specimen / Unknown Venipuncture / Unknown 04/10/2024 6:11 PM EDT 04/10/2024 6:26 PM EDT Susan Mcclure MD LAB BLOOD ORDERABLES Final Re sult Performing Organization Address City[facility] de Phone Number [facility] [address] [place] [address] * (ABNORMAL) Hemoglobin A1c (04/10/2024 6:11 PM EDT) Hemoglobin A1c 6.3(H) <5.7 % 04/10/2024 9:31 PM EDT [facility] Blood Venous blood [...] Adults <6.0% Children and Adolescents <7.5% Source: [place] [employer]. Standards of medical care in diabetes,2017. Diabetes Care.2017:40 (suppl 1):S1-S135. HbA1c assay performed by an ion-exchange chromatography method that is certified traceable to the DCCT. Joselito Berrios MD LAB BLOOD ORDERABLES Final Re sult Performing Organization Address [facility] de Phone Number [facility] [address] [place] [address] from Last 3 Months or Most Recently Relevant to Health Maintenance Additional Health Concerns Infection Onset Date Last Indicated ESBL Comment:+ 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 Source: [facility]. This patient will require contact precautions indefinitely. 04/01/2024 Insurance [id number] [place] [id number] [facility] MEDICAID Advance Directives * Full Code (Latest Code Status on File) Date Activated Date Inactivated Comments 04/11/2024 10:12 AM 04/12/2024 3:22 PM Question Answer Comments Patient has decision-making capacity? Yes Care Teams Supervisor Weaving Relationship Specialty Start Date End Date Juarez Griffin MD [address] [facility] [address] [place] [address] PCP - General 03/10/21 Karen Naqvi DO 1210 [facility] [address] [place] [address] Referring Physician Obstetrics and Gynecology 09/23/24
--- OUTSIDE RECORDS SUMMARY | 2025-06-14 11:22 | XMS_ITS | Encounter Summary ---
Author Organization [facility] Address [address] [place] [id number] Care Team Providers Care Fibrous Wallboard Inspector Name Role Phone Juarez Griffin MD Primary Care Provider [phone] Encounter Details Date Type Department Care Team (Late st Contact Info) Description 04/16/2024 Retail Pharmacy Consultation [facility] [address] [place] [address] [facility] [address] [place], [place] [id number] Social History Tobacco Use Types Packs/Day Years Used Date Smoking Tobacco: Never Passive Smoke Exposure: Never Smokeless Tobacco: Never Alcohol Use Standard Drinks/Week Comments Yes 0 (1 standard drink = 0.6 oz pur e alcohol) rarely C Utilities Answer Date Recorded In the past 12 months has [employer], gas, oil, or water [employer] threatened to shut off services in your [...] and heating? Not hard at all 04/16/2024 [facility] [place] of Occupat ional Health - Occupational Stress [...] GED or equivalent No 04/16/2024 Preferred Language Kyrgyz 04/16/2024 PHQ-2 Answer Date Recorded Retired PHQ-9: [...] Info) Description 07/01/2025 1:00 PM EDT Appointment [facility] ULTRASOUND AT [place] [address] [place] [address] 07/01/2025 2:00 PM EDT Appointment [facility] CT AT [place] [address] [place] [address] 07/06/2025 1:00 PM EDT Office Visit [facility] UROLOGY [address] [address] Teressa Finley APRN [address] [address] 11/01/2025 1:30 PM EST Office Visit [facility] CARDIOLOGY [address] [place] [address] Yaneth Ugarte MD [address] [place] [address] documented as of this encounter Visit Diagnoses Not on filedocumented in this encounter Additional Health Concerns Infection Onset Date Last Indicated Resolved Time ESBL 04/01/2024 04/01/2024 03/03/2025 6:48 AM EDT documented as of this encounter Care Teams Fibrous Wallboard Inspector Relationship Specialty Start Date End Date Juarez Griffin MD [address] [place] [address] PCP - General Internal Medicine 05/30/23 documented as of this encounter
--- OUTSIDE RECORDS SUMMARY | 2025-06-14 11:22 | XMS_ITS | Clinical Summary ---
Author Organization [facility] Address [address] [place] [id number] Care Team Providers Care Retail Shift Manager Name Role Phone Juarez Griffin MD Primary Care Provider [phone] Allergies Active Allergy Reactions Criticality Noted Date [...] s:Nephrolithias is,Recurrent UTI Call 911. Don't prime. [place] in 1 nostril for overdose. Repeat in [...] Type Department Care Team Description 05/11/2025 Telephone [facility] CARDIOLOGY [address] [address] Shell Diaz RegSched Rep 05/10/2025 Results Follow-Up [facility] CARDIOLOGY [address] [address] Yaneth Ugarte MD 05/03/2025 1:30 PM EDT Office Visit [facility] CARDIOLOGY [address] [address] Yaneth Ugarte MD Hypercholesterolemia (Primary Dx); PVC (premature ventricular contraction); Precordial chest pain; Swelling of lower extremity 05/03/2025 Patient rounding ([facility] only) [facility] CARDIOLOGY [address] [address] Yaneth Ugarte MD 05/03/2025 Travel 04/29/2025 Telephone [facility] CARDIOLOGY [address] [address] Yaneth Ugarte MD 04/05/2025 9:00 AM EDT Procedure visit [facility] UROLOGY [address] [facility] [address] [address] Demarcus Ames MD Staghorn calculus (Primary Dx) 04/05/2025 Travel 04/01/2025 Telephone [facility] UROLOGY [address] [facility] [address] [address] TODD - CLINICAL 03/31/2025 10:26 AM EDT Anesthesia Event [facility] OR [address] [place] [address] Edgardo Ryan, SANDRA 03/31/2025 10:10 AM EDT - 03/31/2025 12:11 PM EDT Surgery [facility] OR [address] [place] [address] Demarcus Ames MD Percutaneous nephrolithotomy with stent placement left, cystoscopy 03/31/2025 10:05 AM EDT Anesthesia Event Converted [facility] ANESTHESIA [address] [place] [address] 03/31/2025 8:29 AM EDT - 03/31/2025 2:15 PM EDT Hospital Encounter [facility] OR [address] [place] [address] Demarcus Ames MD Staghorn calculus Discharge Disposition: Home or Self Care 03/31/2025 Telephone [facility] UROLOGY [address] [facility] [address] [address] TODD - POST OP FOLLOW UP 03/31/2025 Telephone [facility] UROLOGY [address] [place] [address] [address] TODD - SCHEDULING 03/31/2025 Travel 03/25/2025 Telephone [facility] UROLOGY [address] [facility] [address] [address] Demarcus Ames MD 03/24/2025 1:00 PM EDT Pre-Admission Testing [facility] PREADMISSION T [address] [place] [address] 03/24/2025 Travel 03/17/2025 Telephone [facility] UROLOGY [address] [place] [address] Demarcus Ames MD 03/16/2025 Telephone [facility] UROLOGY [address] [facility] [address] [place] [address] Dmearcus Ames MD 03/15/2025 Telephone [facility] UROLOGY [address] [facility] [address] [place] [address] TODD-CLINICAL from Last 3 [...] Marzena bradley Alive Paternal Grandfather Unknown Sister Matra Alive Social History Tobacco Use Types Packs/Day Years Used Date Smoking Tobacco: Never Passive Smoke Exposure: Never Smokeless Tobacco: Never Tobacco Cessation:Counseling Given: Yes Alcohol Use Standard Drinks/Week Comments Not Currently 0 (1 standard drink = 0.6 oz pur e alcohol) Maybe 3 drinks annually [facility] Utilities Answer Date Recorded In the past 12 months has [employer], gas, oil, or water company threatened to [...] or training? Not on file Preferred Language Panamanian 02/25/2025 PHQ-2 Answer Date Recorded Retired PHQ-9: [...] Info) Description 07/01/2025 1:00 PM EDT Appointment [facility] ULTRASOUND AT [address] [address] 07/01/2025 2:00 PM EDT Appointment [facility] [place] [address] [place] [address] 07/06/2025 1:00 PM EDT Office Visit [facility] UROLOGY [address] [address] Teressa Finley, BLENDER CONVEYOR OPERATOR [address] [facility] [address] [place] [address] 11/01/2025 1:30 PM EST Office Visit [facility] CARDIOLOGY [address] [place] [address] Yaneth Ugarte MD [address] [place] [address] Health Maintenance Due Date Last Done [...] Completed 04/10/2024 Medical Devices Implanted Type Area Diesel Mechanic Construction Device Identifier Shelf Expiration Date Model / Serial / Lot Kt Seal Hemos Abs Floseal Matrx Fast/Prep 5ml - [id number] Implanted:Qty : 1 on 04/15/2024 by Demarcus Ames MD at [facility] Implant Right: Kidney [employer] 05/29/2025 [id number] / / [id number] Clip Ligat Vasc Horizon Ti Daniel 6ct - [id number] Implanted:Qty : 2 on 03/04/2025 by Zac Mckeon MD at [facility] Implant N/A: Neck [employer] [id number] / / Clip Ligat Vasc Horizon Ti Sm Yel 6ct - [id number] Implanted:Qty : 4 on 03/04/2025 by Zac Mckeon MD at [facility] Implant N/A: Neck [employer] [id number] / / Hemost Abs Surgicel Orig 4x8in Strl - [id number] Implanted:Qty : 1 on 03/04/2025 by Zac Mckeon MD at [facility] Implant N/A: Neck [employer] J [id number] / / Kt Seal Hemos Abs Floseal Matrx 1.5/Fast/Prep 5000/Iu 5ml - [id number] Implanted:Qty : 1 on 03/31/2025 by Demarcus Ames MD at [facility] Implant Left: Back [employer] 08/13/2026 [id number] / / [id number] Stnt Percuflx No Gw 7x26 - [id number] Implanted:Qty : 1 on 04/15/2024 by Demarcus Ames MD at [facility] Stent Right: Kidney [employer] 09/06/2026 [id number] / / [id number] Stnt Percuflx No Gw 7x26 - [id number] Implanted:Qty : 1 on 03/31/2025 by Demarcus Ames MD at [facility] Stent Left: Back [employer] 08/10/2027 [id number] / / [id number] Procedures Procedure Name Priority Date/Time Associated Diagnosis [...] ORDERABLES Final R esult Performing Organization Address [facility] Co de Phone Number PSYCHIATRIC LABORATORY
[address] [place] [address], [place] [phone] * Magnesium (05/07/2025) Blood us Yaneth Ugarte MD LAB BLOOD ORDERABLES Final R esult Performing Organization Address [facility] Co de Phone Number PSYCHIATRIC LABORATORY
[address] [place] [address], [place] [phone] * Lipid Panel (05/07/2025) Blood us Yaneth Ugarte MD LAB BLOOD ORDERABLES Final R esult Performing Organization Address City/[facility]/ZIP Co de Phone Number PSYCHIATRIC LABORATORY
[address] [place] [address], [place] [phone] * Comprehensive Metabolic Panel (05/07/2025) Blood us Yaneth Ugarte MD LAB BLOOD ORDERABLES Final R esult Performing Organization Address [facility] Co de Phone Number PSYCHIATRIC LABORATORY
[address] [place] [address], [place] [phone] * ECG 12-LEAD (05/03/2025 2:22 PM EDT) [...] PARATHYROIDECTOMY; Surgeon: Zac Mckeon MD;Location: [facility]; Service: General; Laterality: N/A; PERCUTANEOUS NEPHROSTOLITHOTOMY Right 04/15/2024 Procedure: CYSTOSCOPY & BALLOON OCCLUSION CATHETER PLACEMENT, PRIMARYPERCUTANEOUS ACCESS, NEPHROSTOLITHOTOMY PERCUTANEOUS, WITH STENT EXCHANGE;Surgeon: Demarcus Ames MD; Location: [facility]; Service:Urology; Laterality: Right; PERCUTANEOUS NEPHROSTOLITHOTOMY Left 03/31/2025 Procedure: Percutaneous nephrolithotomy with stent placement left,cystoscopy; Surgeon: Demarcus Ames MD; Location: [facility] OR;Service: Urology; Laterality: Left; TUBAL ABDOMINAL [...] file. Laura Ugarte MD Cardiology and Sleep [facility] 05/03/2025 Please note that this explicitly [...] Proteus mirabilis(A) TOMASA 04/03/2025 9:18 AM EDT [facility] LABORATORY Gram Stain No organisms seen 04/03/2025 9:18 AM EDT [facility] LABOR[facility]ORY Calculus Left kidney structure [...] MICROBIOLOGY - GENERAL OR DERABLES Final Result [facility] LABORATORY
[address] [place] [address], [place] [phone] [facility] LABORATORY
[address] [place] [address], [place] [phone] * STONE ANALYSIS - Calculus, Kidney, Left [...] 04/14/2025 10:06 PM EDT [facility] Magnesium [place] Phos 40 % 04/14/2025 10:06 PM EDT [...] 04/14/2025 10:06 PM EDT Performed at: - [facility] [address] [place] [id number] Watch Assembler: Mariam Turner PhD, Phone: [phone] us Demarcus Ames MD BODY FLUIDS AND STOOLS OR DERABLES Final Result [facility] [address] [place] [address], * BH AN ETT AIRWAY (03/31/2025 10:40 AM EDT) Narrative Edgardo Ryan CRNA - 03/31/2025 10:40 AM EDT Edgardo Ryan CRNA 03/31/2025 10:41 AM Airway Reason: elective Date/Time: 03/31/2025 10:32 AM Airway not difficult General Information and Staff Patient location during procedure: OR WILL CALL ORDER CLERK/CAA: Edgardo Ryan CRNA Indications and Patient Condition [...] POC Glucose Once (03/31/2025 9:12 AM EDT) [facility] Glucose 200(H) 70 - 130 mg/dL 03/31/2025 9:33 AM EDT [facility] Comment:Serial Number: [id number]: [id number] Blood 03/31/2025 9:12 AM EDT 03/31/2025 9:33 AM EDT Demarcus Ames MD POINT OF CARE TEST ORDERA BLES Final Result [facility] LABORATORY
[address] [place] [address], * Type & Screen (03/31/2025 9:03 AM EDT) ABO Type AB 03/31/2025 10:05 AM EDT [facility] RH type Positive 03/31/2025 10:05 AM EDT [facility] Antibody Screen Negative 03/31/2025 10:05 AM EDT [facility] T&S Expiration Date 04/03/2025 11:59:59 PM 03/31/2025 10:05 AM EDT [facility] Blood Venipuncture / Unknown 03/31/2025 9:03 AM EDT 03/31/2025 9:09 AM EDT Demarcus Ames MD BLOOD BANK TEST ORDERABLE S Edited Result - Final [facility]
[address] [place] [address], * Telemetry Scan (03/31/2025) [facility] Onbase ECG ORDERABLES Final Result * CBC (No Diff) (03/24/2025 1:13 PM EDT) WBC 10.22 3.40 - 10.80 10*3/mm3 03/24/2025 3:17 PM EDT [facility] RBC 5.25 3.77 - 5.28 10*6/mm3 03/24/2025 3:17 PM EDT [facility] Hemoglobin 14.8 12.0 - 15.9 g/dL 03/24/2025 3:17 PM EDT [facility] Hematocrit 45.0 34.0 - 46.6 % 03/24/2025 3:17 PM EDT [facility] MCV 85.7 79.0 - 97.0 fL 03/24/2025 3:17 PM EDT [facility] MCH 28.2 26.6 - 33.0 pg 03/24/2025 3:17 PM EDT [facility] MCHC 32.9 31.5 - 35.7 g/dL 03/24/2025 3:17 PM EDT [facility] RDW 13.8 12.3 - 15.4 % 03/24/2025 3:17 PM EDT [facility] RDW-SD 42.9 37.0 - 54.0 fl 03/24/2025 3:17 PM EDT [facility] MPV 11.2 6.0 - 12.0 fL 03/24/2025 3:17 PM EDT [facility] Platelets 326 140 - 450 10*3/mm3 03/24/2025 3:17 PM EDT [facility] Blood Line / Unknown 03/24/2025 1: 13 PM EDT 03/24/2025 3:13 PM EDT Demarcus Ames MD LAB BLOOD ORDERABLES Maria E l Result [facility] LAB[facility]ORY
[address] [place] [id number], * (ABNORMAL) Basic Metabolic Panel (03/24/2025 1:13 PM EDT) [facility] Glucose 120(H) 65 - 99 mg/dL 03/24/2025 3:42 PM EDT [facility] BUN 16.0 6.0 - 20.0 mg/dL 03/24/2025 3:42 PM EDT [facility] Creatinine 0.90 0.57 - 1.00 mg/dL 03/24/2025 3:42 PM EDT [facility] Sodium 140 136 - 145 mmol/L 03/24/2025 3:42 PM EDT [facility] Potassium 4.1 3.5 - 5.2 mmol/L 03/24/2025 3:42 PM EDT [facility] Chloride 97(L) 98 - 107 mmol/L 03/24/2025 3:42 PM EDT [facility] CO2 26.5 22.0 - 29.0 mmol/L 03/24/2025 3:42 PM EDT [facility] Calcium 9.7 8.6 - 10.5 mg/dL 03/24/2025 3:42 PM EDT [facility] BUN/Creatinine Ratio 17.8 7.0 - 25.0 03/24/2025 3:42 PM EDT [facility] Anion Gap 16.5(H) 5.0 - 15.0 mmol/L 03/24/2025 3:42 PM EDT [facility] eGFR 77.6 >60.0 mL/min/1.7 3 03/24/2025 3:42 PM EDT [facility] Blood Line / Unknown 03/24/2025 1: 13 PM EDT 03/24/2025 3:13 PM EDT Narrative [facility] - 03/24/2025 3:42 PM EDT GFR [...] LAB BLOOD ORDERABLES Maria E hwang Result [facility]
[address] [place] [address], [place] [phone] * (ABNORMAL) Urinalysis, Microscopic Only - Urine, Clean Catch (03/24/2025 1:08 PM EDT) RBC, UA 3-5(A) None Seen, 0-2 /HPF 03/24/2025 3:45 PM EDT [facility] WBC, UA 6-10(A) None Seen, 0-2 /HPF 03/24/2025 3:45 PM EDT [facility] Bacteria, UA Trace(A) None Seen /HPF 03/24/2025 3:45 PM EDT [facility] Squamous Epithelial Cells, UA 0-2 None Seen, 0-2 /HPF 03/24/2025 3:45 PM EDT [facility] Hyaline Casts, UA 0-2 None Seen /LPF 03/24/2025 3:45 PM EDT [facility] Methodology Manual Light Microscopy 03/24/2025 3:45 PM EDT [facility] Urine Urine specimen obtained by clean catch procedure / Unknown Collection / Unknown 03/24/2025 1:08 PM EDT 03/24/2025 3:12 PM EDT Demarcus Ames MD URINE ORDERABLES Final Re sult [facility]
[address] [place] [address], * (ABNORMAL) Urinalysis With Culture If Indicated - Urine, Clean Catch (03/24/2025 1:08 PM EDT) Color, UA Yellow Yellow, Straw 03/24/2025 3:31 PM EDT [facility] Appearance, UA Clear Clear 03/24/2025 3:31 PM EDT [facility] pH, UA 5.5 5.0 - 8.0 03/24/2025 3:[facility] Specific [place], UA 1.010 1.005 - 1.030 03/24/2025 3:31 PM EDT [facility] Glucose, UA >=1000 mg/dL (3+)(A) Negative 03/24/2025 3:31 PM EDT [facility] Ketones, UA Negative Negative 03/24/2025 3:31 PM EDT [facility] Bilirubin, UA Negative Negative 03/24/2025 3:31 PM EDT [facility] Blood, UA Small (1+)(A) Negative 03/24/2025 3:31 PM EDT [facility] Protein, UA Negative Negative 03/24/2025 3:31 PM EDT [facility] Leuk Esterase, UA Small (1+)(A) Negative 03/24/2025 3:31 PM EDT [facility] Nitrite, UA Negative Negative 03/24/2025 3:31 PM EDT [facility] Urobilinogen, UA 0.2 E.U./dL 0.2 - 1.0 E.U./dL 03/24/2025 3:31 PM EDT [facility] Urine Urine specimen obtained by clean catch procedure / Unknown Collection / Unknown 03/24/2025 1:08 PM EDT 03/24/2025 3:12 PM EDT [facility] LABORATORY - 03/24/2025 3:31 PM EDT In absence of clinical symptoms, the presence of pyuria, bacteria, and/or nitrites on the urinalysis result does not correlate with infection. us Demarcus Ames MD URINE ORDERABLES Final Re sult [facility] LABORATORY
[address] [place] [address], * Urine Culture - Urine, Urine, Clean Catch (03/24/2025 1:08 PM EDT) Urine Culture <25,000 CFU/mL Normal Urogenital Martina TOMASA 03/25/2025 11:10 AM EDT [facility] Urine Urine specimen obtained by clean catch procedure / Unknown Collection / Unknown 03/24/2025 1:08 PM EDT 03/24/2025 3:12 PM EDT Narrative [facility] - 03/25/2025 11:10 AM EDT Colonization of the urinary tract without infection is common. Treatment is discouraged unless the patient is symptomatic, , or undergoing an invasive urologic procedure. us Demarcus Ames MD MICROBIOLOGY - GENERAL OR DERABLES Final Result [facility] LAB[facility]ORY
[address] [place] [address], from Last 3 Months Insurance [facility] Care Teams Retail Shift Manager Relationship Specialty Start Date End Date Juarez Griffin MD [address] [facility] [address] [facility] [place] [address] PCP - General Internal Medicine 05/30/23
--- OUTSIDE RECORDS SUMMARY | 2025-06-14 11:22 | XMS_ITS | Referral Summary ---
Author Organization [employer] ([place], [place], [place], [place]) Address [address] [place] [address] Care Team Providers Care Survey Party Chief Name Role Phone Juarez Griffin MD Primary Care Provider [phone] Allergies Active Allergy Reactions Criticality Noted Date [...] speak a language other than [place] at [place]? No 12/27/2023 Do you want help with [...] on file Medical Devices Implanted Type Area Rubber Goods Finisher Device Identifier Shelf Expiration Date Model / Serial / Lot Loop Recorder LOOP RECORDER Left: Chest Insurance [facility] [place] [id number] [facility] Advance Directives For more information, please contact: [phone] * Full Code (Latest Code Status on File) Date Activated Date Inactivated Comments 12/27/2023 3:21 AM 12/30/2023 2:53 PM -Attempt Resus citation if person has no pulse and is not breathing. -If no pulse or not breathing attempt CPR/CODE. -Call Rapid Response if patient is in distress. Care Teams Survey Party Chief Relationship Specialty Start Date End Date Juarez Griffin MD [address] [place] [address] [place] [phone] PCP - General General Internal Medicine 12/30/23
--- OUTSIDE RECORDS SUMMARY | 2025-06-14 11:22 | XMS_ITS | Encounter Summary ---
Author Organization [facility] Address [address] [place] [address] Care Team Providers Care Para Educator Name Role Phone Juarez Griffin MD Primary Care Provider [phone] Reason for Visit * Reason Onset Date Comments DR AMES - CLINICAL 04/01/2025 Encounter Details Date Type Department Care Team (Late st Contact Info) Description 04/01/2025 Telephone [facility] UROLOGY [address] [facility] [address] [address] Demarcus Ames MD [address] [address] [address] AMES - CLINICAL Social History Tobacco Use Types Packs/Day Years Used Date Smoking Tobacco: Never Passive Smoke Exposure: Never Smokeless Tobacco: Never Alcohol Use Standard Drinks/Week Comments Not Currently 0 (1 standard drink = 0.6 oz pur e alcohol) Maybe 3 drinks annually [facility] Utilities Answer Date Recorded In the past 12 months has [employer], [employer], oil, or water [employer] threatened to shut off services in your [...] and heating? Not hard at all 04/16/2024 [facility] of Occupat ional Health - Occupational Stress [...] OUT TO DISCUSS BEST NUMBER IS CELL [phone] documented in this encounter Plan of Treatment Upcoming Encounters Date Type Department Care Team (Late st Contact Info) Description 07/01/2025 1:00 PM EDT Appointment [facility]OUND [facility] [address] [place] [address] 07/01/2025 2:00 PM EDT Appointment [facility] [address] [address] [address] [place] [address] 07/06/2025 1:00 PM EDT Office Visit [facility] UROLOGY [address] [place] [address] Teressa Finley, TENNIS PLAYER [address] [facility] [address] [facility] [address] [place] [address] 11/01/2025 1:30 PM EST Office Visit [facility] CARDIOLOGY [address] [place] [address] Yaneth Ugarte MD [address] [place] [address] documented as of this encounter Visit Diagnoses Not on filedocumented in this encounter Care Teams Para Educator Relationship Specialty Start Date End Date Juarez Griffin MD [address] [facility] [address] [place] [address] PCP - General Internal Medicine 05/30/23 documented as of this encounter
--- OUTSIDE RECORDS SUMMARY | 2025-06-14 11:22 | XMS_ITS | Clinical Summary ---
Author Organization [facility] Address [address] [facility] [address] [place] [address] Phone Care Team Providers Care Card Tape Converter Operator Name Role Phone Zofia Perkins Unavailable Unavailable Conditions or Problems Problem Name Problem Code Onset Date Status Entry Date Provider Comment Standard Description Annotate Acute Pyelonephritis 01849901 (SNOMED CT) 01/07 Active 01/07 Malina Ames Acute pyelonephritis Obstructive uropathy with infection N13.6 (ICD-10-C M) 01/07 Active 01/07 Malina Ames Pyonephrosis Neutrophilic leukemoid reaction D72.823 (ICD-10-C M) 01/07 Active 01/07 Malina Ames Leukemoid reaction COPD 27925602 (SNOMED CT) 01/07 Active 01/07 Malina Ames Chronic obstructive pulmonary disease Morbid obesity due to excess calories E66.01 (ICD-10-C M) 01/07 Active 01/07 Malina Ames Morbid (severe) obesity due to excess calories DM Type II E11.9 (ICD-10-C M) 01/07 Active 01/07 Malina Ames Type 2 diabetes mellitus without complications Benign hypertensive heart disease with chronic diastolic heart failure (I50.32) 27238898 (SNOMED CT) 01/07 Active 01/07 Malina Ames Benign hypertension Medications Medication Instructions Start Date Stop Date Generic Name [facility] Provider FOSFOMYCIN TROMETHAMINE 3 GM PACK Take 1 packet by mouth as directed take 1 packet every 3-4 days (2 times weekly) fosfomycin tromethamine [id number] Calvin Villarreal MD PREDNISONE 20 MG TABS prednisone 13550538050 Milly Jabierbrianne VITAMIN C 500 MG CAPS twice a day ascorbic acid (vitamin c) 15588554491 Milly Mosquera HIPREX 1 GM TABS Take 1 tablet by mouth twice a day 02/18 methenamine hippurate 49225958528 Calvin Villarreal MD INDOMETHACIN 50 MG CAPS Take 1 capsule by mouth three times a day indomethacin 01787778368 Linda De Leon SUCRALFATE 1 GM TABS Take 1 tablet by mouth four times a day sucralfate 00785656028 Linda De Leon BUMETANIDE 2 MG TABS Take 1 tablet by mouth twice a day bumetanide 80862339831 Linda De Leon PRAVASTATIN SODIUM 10 MG TABS Take 1 tablet by mouth every night pravastatin 55954215624 Linda De Leon ENTRESTO 24-26 MG TABS Take 1 tablet by mouth twice a day sacubitril-valsa rtan 32865117289 Linda De Leon VENTOLIN HFA 108 (90 Base) MCG/ACT AERS Inhale 2 puff by mouth every four to six hours as needed albuterol sulfate 39711726385 Linda De Leon ADVAIR DISKUS 250-50 MCG/ACT AEPB Inhale 1 puff twice a day fluticasone propion-salmeter ol 07487983936 Linda De Leon OMEPRAZOLE 20 MG CPDR Take 1 capsule by mouth once a day omeprazole 99211635793 Linda De Leon METFORMIN HCL 500 MG TABS Take 1 tablet by mouth twice a day metformin 55172109169 Linda De Leon FARXIGA 10 MG TABS Take 10 mg by mouth once a day dapagliflozin propanediol 70711852948 Linda De Leon IBUPROFEN (IBUPROFEN) 800 MG TABS Take 1 tablet by mouth every six hours as needed IBUPROFEN Linda De Leon TIZANIDINE HCL 4 MG TABS Take 1 tablet by mouth as needed tizanidine 08136769196 Linda De Leon TRAMADOL HCL 50 MG TABS every twelve hours tramadol 91147319385 Linda De Leon NITROGLYCERIN 0.[address] 1 tablet under tongue as needed nitroglycerin 38248478557 Linda Moises ONDANSETRON HCL 4 MG TABS Take 1 tablet by mouth every eight hours as needed ondansetron hcl 86160774306 Linda Moises SPIRONOLACTONE 50 MG TABS Take 1 tablet by mouth once a day spironolactone 41798836044 Linda De Leon SITagliptin (JANUVIA) 25 MG tablet Take 1 tablet by mouth once a day JANOLIVER De Leon NEBIVOLOL HCL 5 MG TABS Take 1 tablet by mouth once a day nebivolol 74106237150 Jazieltyree De Leon GLYXAMBI 10-5 MG TABS Take 1 tablet by mouth once a day empagliflozin-li nagliptin 92143690320 Linda D eLeon VENTOLIN HFA 108 (90 Base) MCG/ACT AERS INHALE TWO PUFFS BY MOUTH EVERY 4 TO 6 HOURS NEEDED 01/19 albuterol sulfate 01354683209 QIE qieuser TRAMADOL HCL 50 MG TABS Every 12 (Twelve) Hours. 01/19 tramadol 52191126942 QIE qieuser TIZANIDINE HCL 4 MG TABS Take 1 tablet by mouth As Needed. 01/19 tizanidine 18885753579 QIE qieuser SUCRALFATE 1 GM TABS Take 1 tablet by mouth 4 (Four) Times a Day. 01/19 sucralfate 57510453727 QIE qieuser SPIRONOLACTONE 50 MG TABS TAKE ONE TABLET BY MOUTH EVERY DAY 01/19 spironolactone 01262347472 QIE qieuser SITagliptin (JANUVIA) 25 MG tablet Take 1 tablet by mouth Daily. 01/19 JANUVIA QIE qieuser PRAVASTATIN SODIUM 10 MG TABS TAKE ONE TABLET BY MOUTH EVERY DAY AT BEDTIME 01/19 pravastatin 79341208703 QIE qieuser ONDANSETRON HCL 4 MG TABS Take 1 tablet by mouth Every 8 (Eight) Hours As Needed. 04/27 ondansetron hcl 48783794315 QIE qieuser OMEPRAZOLE 20 MG CPDR TAKE ONE CAPSULE BY MOUTH EVERY DAY 04/27 omeprazole 29757594547 QIE qieuser O2 (OXYGEN) 2 L by Alternating Nares route Every Night. OXYGEN QIE qieuser NITROGLYCERIN 0.[address] 1 tablet under the tongue As Needed for Chest Pain. 01/19 nitroglycerin 00402324723 QIE qieuser NEBIVOLOL HCL 5 MG TABS TAKE ONE TABLET BY MOUTH EVERY DAY 01/19 nebivolol 42153612433 QIE qieuser METFORMIN HCL 500 MG TABS Take 1 tablet by mouth 2 (Two) Times a Day. 01/19 metformin 84557044038 QIE qieuser IPRATROPIUM-ALBUT MIK 0.5-2.5 (3) MG/3ML SOLN ipratropium-albu terol 83362344713 QIE qieuser INDOMETHACIN 50 MG CAPS Take 1 capsule by mouth 3 (Three) Times a Day With Meals. 01/19 indomethacin 02767083154 QIE qieuser IBUPROFEN (IBUPROFEN) 800 MG TABS Take 1 tablet by mouth Every 6 (Six) Hours As Needed. 01/19 IBUPROFEN QIE qieuser ENTRESTO 24-26 MG TABS TAKE ONE TABLET BY MOUTH TWICE DAILY 01/19 sacubitril-valsa rtan 15686995895 QIE qieuser GLYXAMBI 10-5 MG TABS Take 1 tablet by mouth Daily. 01/19 empagliflozin-li nagliptin 92040262808 QIE qieuser FARXIGA 10 MG TABS Take 10 mg by mouth Daily. 01/19 dapagliflozin propanediol 82672348973 QIE qieuser BUMETANIDE 2 MG TABS TAKE ONE TABLET BY MOUTH TWICE DAILY 01/19 bumetanide 33653085579 QIE qieuser ADVAIR DISKUS 250-50 MCG/ACT AEPB Inhale 1 puff 2 (Two) Times a Day. 01/19 fluticasone propion-salmeter ol 71507909061 QIE qieuser CEFUROXIME AXETIL 500 MG TABS 1 tablet by mouth twice a day cefuroxime axetil 67002053017 Calvin Villarreal MD Medications Administered No information [...] smoking status SMOK STATUS Never smoker Toba travel accommodation inspector smoking status MEDS REVIEW Done Documenta tion [...]
--- OUTSIDE RECORDS SUMMARY | 2025-06-14 11:22 | XMS_ITS | Encounter Summary ---
Author Organization [facility] Address [address] [place] [address] Care Team Providers Care Hydraulic Auto Jack Mechanic Name Role Phone uJarez Griffin MD Primary Care Provider [phone] Reason for Visit * Reason Onset Date Comments DR AMES - SCHEDULING 03/31/2025 Encounter Details Date Type Department Care Team (Late st Contact Info) Description 03/31/2025 Telephone [facility] [address] [facility] [address] [address] Demarcus Ames MD [address] [address] [address] AMES - SCHEDULING Social History Tobacco Use Types Packs/Day Years Used Date Smoking Tobacco: Never Passive Smoke Exposure: Never Smokeless Tobacco: Never Alcohol Use Standard Drinks/Week Comments Not Currently 0 (1 standard drink = 0.6 oz pur e alcohol) Maybe 3 drinks annually [facility] Utilities Answer Date Recorded In the past 12 months has [employer], [employer], oil, or water [employer] threatened to shut off services in your [...] and heating? Not hard at all 04/16/2024 [facility] [place] [facility] - Occupational Stress [...] or training? Not on file Preferred Language Bulgarian 02/25/2025 PHQ-2 Answer Date Recorded Retired PHQ-9: [...] 9:18 AM EDT Cathy Curtis RN * [place] Suicide Severity Rating Scale (Screener/Recent Self-Report) Question Answer Date of Assessment Author 6. Suicidal Behavior (Lifetime) No 9:18 AM EDT Vandana Curtis RN documented as of this encounter Miscellaneous Notes * Telephone Encounter - Ashleigh Crowell - 03/31/2025 1:55 PM EDT Caller: LISSY VALDEZ Relationship to patient: SELF Best call back number: [phone] Chief complaint: PATIENT HAD SURGERY TODAY AND [...] 07/01/2025 1:00 PM EDT Appointment [facility] [place] [address] [place] [address] 07/01/2025 2:00 PM EDT Appointment [facility] [place] [address] [place] [address] 07/06/2025 1:00 PM EDT Office Visit [facility] [address] [place] [address] Teressa Finley APRN [address] [place] [address] 11/01/2025 1:30 PM EST Office Visit [facility] [address] [place] [address] Yaneth Ugarte MD [address] [place] [address] documented as of this encounter Visit Diagnoses Not on filedocumented in this encounter Care Teams Hydraulic Auto Jack Mechanic Relationship Specialty Start Date End Date Juarez Griffin MD [address] [facility] [address] [place] [id number] PCP - General Internal Medicine 05/30/23 documented as of this encounter
--- OUTSIDE RECORDS SUMMARY | 2025-06-14 11:22 | XMS_ITS | Clinical Summary ---
Author Organization [facility] ([place], [place], [place], [place]) Address [address] [place] [address] Care Team Providers Care Rn Ent Name Role Phone Juarez Griffin MD Primary Care Provider [phone] Allergies Active Allergy Reactions Criticality Noted Date [...] Do you speak a language other than Cambodian at [facility]? No 12/27/2023 Do [...] Completed 10/30/2023, Medical Devices Implanted Type Area County Supervisor Device Identifier Shelf Expiration Date Model / Serial / Lot Loop Recorder LOOP RECORDER Left: Chest Insurance [employer] [facility] [place] Advance Directives For more information, please contact: [phone] * Full Code (Latest Code Status on File) Date Activated Date Inactivated Comments 12/27/2023 3:21 AM 12/30/2023 2:53 PM -Attempt Resus citation if person has no pulse and is not breathing. -If no pulse or not breathing attempt CPR/CODE. -Call Rapid Response if patient is in distress. Care Teams Rn Ent Relationship Specialty Start Date End Date Juarez Griffin MD [address] [place] [address] [place] [address] PCP - General General Internal Medicine 12/30/23
== END 2025-06-12 23:59 | disposition home or self-care (01) ==
LOC: LAB.DROPOF 06-14 11:20
PROVIDERS: PCP Nurse Practitioner Family; Visit Provider Nurse Practitioner Family
DX: M54.50 Low back pain, unspecified (principal)
CPT/HCPCS: 87086

== ENCOUNTER 2025-06-12 23:33 | Observation (INO) | payer OTHER, SELFPAY ==
--- OUTSIDE RECORDS SUMMARY | 2025-05-03 13:30 | XMS_ITS | Encounter Summary ---
Author Organization [facility] Address [address] [place] [address] Care Team Providers Care Library Circulation Department Chief Name Role Phone Juarez Griffin MD Primary Care Provider [phone] Reason for Visit * Reason Comments Edema [...] Description 05/03/2025 1:30 PM EDT Office Visit [facility] CARDIOLOGY [address] [place] [address] Yaneth Ugarte MD [address] [place] [address] Hypercholesterolemia (Primary Dx); PVC (premature ventricular contraction); Precordial chest pain; Swelling of lower extremity Social History Tobacco Use Types Packs/Day Years Used Date Smoking Tobacco: Never Passive Smoke Exposure: Never Smokeless Tobacco: Never Tobacco Cessation:Counseling Given: Yes Alcohol Use Standard Drinks/Week Comments Not Currently 0 (1 standard drink = 0.6 oz pur e alcohol) Maybe 3 drinks annually [facility] Utilities Answer Date Recorded In [...] and heating? Not hard at all 04/16/2024 [facility] of Occupat ional Health - [...] or training? Not on file Preferred Language Kyrgyz 02/25/2025 PHQ-2 Answer Date Recorded Retired PHQ-9: [...] MG/0.1ML nasal spray, Call 911. Don't prime. [place] in 1 nostril for overdose. Repeat in [...] Chronic chest pain followed by Dr. Ugarte -[facility] 03/05/24 Chronic diastolic (congestive) heart failure [...] file. Laura Ugarte MD Cardiology and Sleep [facility] 05/03/2025 Please note that this [...] Info) Description 07/01/2025 1:00 PM EDT Appointment [facility] [place]OUND [place] [address] [place] [address] 07/01/2025 2:00 PM EDT Appointment [facility] CT [place] [address] [place] [address] 07/06/2025 1:00 PM EDT Office Visit [facility] UROLOGY [address] [phone] Teressa Finley, GRAVEDIGGER [address] [address] 11/01/2025 1:30 PM EST Office Visit [facility] CARDIOLOGY [address] [address] Yaneth Ugarte MD [address] [place] [address] documented as of this encounter Procedures [...] 03/04/2025 Procedure: PARATHYROIDECTOMY; Surgeon: Zac Mckeon MD;Location: [facility] OR; Service: General; Laterality: N/A; PERCUTANEOUS NEPHROSTOLITHOTOMY Right 04/15/2024 Procedure: CYSTOSCOPY & BALLOON OCCLUSION CATHETER PLACEMENT, PRIMARYPERCUTANEOUS ACCESS, NEPHROSTOLITHOTOMY PERCUTANEOUS, WITH STENT EXCHANGE;Surgeon: Demarcus Ames MD; Location: [facility] OR; Service:Urology; Laterality: Right; PERCUTANEOUS NEPHROSTOLITHOTOMY [...] on file. Laura Ugarte MD Cardiology and [facility] 05/03/2025 Please note that this explicitly [...] extremity documented in this encounter Care Teams Library Circulation Department Chief Relationship Specialty Start Date End Date Juarez Griffin MD 1210 [facility] [address] [place] [address] PCP - General Internal Medicine 05/30/23 documented as of this encounter
--- OUTSIDE RECORDS SUMMARY | 2025-06-12 23:43 | XMS_ITS | Encounter Summary ---
[facility] Address [address] [place] [address] Care Team Providers Care Floor Assembler Name Role Phone Juarez Griffin MD Primary Care Provider [phone] Reason for Visit * Reason Onset Date Comments DR AMES - POST OP FOLLOW UP 03/31/2025 Encounter Details Date Type Department Care Team (Late st Contact Info) Description 03/31/2025 Telephone [facility] [address] [facility] [address] [address] Demarcus Ames MD [address] [address] [address] AMES - POST OP FOLLOW UP Social History Tobacco Use Types Packs/Day Years Used Date Smoking Tobacco: Never Passive Smoke Exposure: Never Smokeless Tobacco: Never Alcohol Use Standard Drinks/Week Comments Not Currently 0 (1 standard drink = 0.6 oz pur e alcohol) Maybe 3 drinks annually [facility] Utilities Answer Date Recorded In the past 12 months has [employer], gas, oil, or water [employer] threatened to shut off services in your [...] and heating? Not hard at all 04/16/2024 [facility] [place] [facility] - Occupational Stress Questionnaire Answer Date [...] Vandana Curtis RN 2. Non-Specific Active Suici admaa Thoughts (Past 1 Month) No 03/31/2025 9:18 AM EDT Vandana Curtis RN * Calculated C-SSRS Risk Score (Lifetime/Recent) Answer Date of Assessment Author No Risk Indicated 03/31/2025 9:18 AM EDT Cathy Curtis RN * [place] Suicide Severity Rating Scale (Screener/Recent Self-Report) Question Answer Date of Assessment Author 6. Suicidal Behavior (Lifetime) No 9:18 AM EDT Vandana Curtis RN documented as of this encounter Miscellaneous Notes * Telephone Encounter - Emily Mendze CMA - 03/31/2025 2:54 PM EDT Pt scheduled with front office developer JUAN MIGUEL Christianson * Telephone Encounter - [...] Info) Description 07/01/2025 1:00 PM EDT Appointment [facility]TR[facility]OUND AT [place] [address] [place] [address] 07/01/2025 2:00 PM EDT Appointment [facility] AT [place] [address] [place] [address] 07/06/2025 1:00 PM EDT Office Visit [facility] UROLOGY [address] [place] [address] Teressa Finley APRN [address] 3 [facility] [address] [place] [address] 11/01/2025 1:30 PM EST Office Visit [facility] CARDIOLOGY [address] [place] [address] Yaneth Ugarte MD [address] [place] [address] documented as of this encounter Visit Diagnoses Not on filedocumented in this encounter Care Teams Floor Assembler Relationship Specialty Start Date End Date Juarez Griffin MD 1210 [facility] [address] [place] [id number] PCP - General Internal Medicine 05/30/23 documented as of this encounter
--- OUTSIDE RECORDS SUMMARY | 2025-06-12 23:43 | XMS_ITS | Referral Summary ---
Author Organization [employer] ([place], [place], [place], [place]) Address [address] [place] [address] Care Team Providers Care Lab Support Service Tech Name Role Phone Juarez Griffin MD Primary Care Provider [phone] Allergies Active Allergy Reactions Criticality Noted Date [...] speak a language other than Romanian at [facility]? No 12/27/2023 Do you want [...] on file Medical Devices Implanted Type Area Last Model Department Supervisor Device Identifier Shelf Expiration Date Model / Serial / Lot Loop Recorder LOOP RECORDER Left: Chest Insurance [facility] [place] [id number] [facility] Advance Directives For more information, please contact: [phone] * Full Code (Latest Code Status on File) Date Activated Date Inactivated Comments 12/27/2023 3:21 AM 12/30/2023 2:53 PM -Attempt Resus citation if person has no pulse and is not breathing. -If no pulse or not breathing attempt CPR/CODE. -Call Rapid Response if patient is in distress. Care Teams Lab Support Service Tech Relationship Specialty Start Date End Date Juarez Griffin MD [address] [place] [phone] PCP - General General Internal Medicine 12/30/23
--- OUTSIDE RECORDS SUMMARY | 2025-06-12 23:43 | XMS_ITS | Encounter Summary ---
[facility] Address [address] [place] [address] Care Team Providers Care Travel Information Center Supervisor Name Role Phone Juarez Griffin MD Primary Care Provider [phone] Reason for Visit * Reason Onset Date Comments DR AMES - SCHEDULING 03/31/2025 Encounter Details Date Type Department Care Team (Late st Contact Info) Description 03/31/2025 Telephone [facility] UROLOGY 793 [facility] [address] [address] Demarcus Ames MD [address] [address] [address] AMES - SCHEDULING Social History Tobacco Use Types Packs/Day Years Used Date Smoking Tobacco: Never Passive Smoke Exposure: Never Smokeless Tobacco: Never Alcohol Use Standard Drinks/Week Comments Not Currently 0 (1 standard drink = 0.6 oz pur e alcohol) Maybe 3 drinks annually [facility] Utilities Answer Date Recorded In the past 12 months has [employer], [employer], oil, or water [employer] threatened to shut off services in your [...] and heating? Not hard at all 04/16/2024 [facility] [place] of Occupat ional Health - Occupational Stress [...] or training? Not on file Preferred Language Ghanaian 02/25/2025 PHQ-2 Answer Date Recorded Retired PHQ-9: [...] 9:18 AM EDT Cathy Curtis RN * [place] Suicide Severity Rating Scale (Screener/Recent Self-Report) Question Answer Date of Assessment Author 6. Suicidal Behavior (Lifetime) No 9:18 AM EDT Vandana Curtis RN documented as of this encounter Miscellaneous Notes * Telephone Encounter - Ashleigh Crowell - 03/31/2025 1:55 PM EDT Caller: LISSY VALDEZ Relationship to patient: SELF Best call back number: [phone] Chief complaint: PATIENT HAD SURGERY TODAY AND [...] Info) Description 07/01/2025 1:00 PM EDT Appointment [facility] ULTR[facility]OUND AT [place] [address] [place] [address] 07/01/2025 2:00 PM EDT Appointment [facility] AT [place] [address] [place] [address] 07/06/2025 1:00 PM EDT Office Visit [facility] UROLOGY [address] [place] [address] Teressa Finley APRN [address] [place] [address] 11/01/2025 1:30 PM EST Office Visit [facility] CARDIOLOGY [address] [place] [address] Yaneth Ugatre MD [address] [place] [address] documented as of this encounter Visit Diagnoses Not on filedocumented in this encounter Care Teams Travel Information Center Supervisor Relationship Specialty Start Date End Date Juarez Griffin MD [address] [place] [facility] [address] [place] [id number] PCP - General Internal Medicine 05/30/23 documented as of this encounter
--- OUTSIDE RECORDS SUMMARY | 2025-06-12 23:43 | XMS_ITS | Encounter Summary ---
Author Organization [facility] Address [address] [place] [address] Care Team Providers Care Tire Finisher Name Role Phone Juarez Griffin MD Primary Care Provider [phone] Encounter Details Date Type Department Care Team (Latest Contact Info) Description 05/03/2025 Travel Social History Tobacco Use Types Packs/Day Years Used Date Smoking Tobacco: Never Passive Smoke Exposure: Never Smokeless Tobacco: Never Alcohol Use Standard Drinks/Week Comments Not Currently 0 (1 standard drink = 0.6 oz pur e alcohol) Maybe 3 drinks annually [facility] Utilities Answer Date Recorded In the past 12 months has mobile [employer], gas, oil, or water [employer] threatened to shut off services in your [...] and heating? Not hard at all 04/16/2024 [facility] [place] of Occupat ional Health - Occupational Stress [...] or training? Not on file Preferred Language Lithuanian 02/25/2025 PHQ-2 Answer Date Recorded Retired PHQ-9: [...] [facility] UL[facility] [place] [address] [place] [address] 07/01/2025 2:00 PM EDT Appointment [facility] [address] [place] [place] [address] 07/06/2025 1:00 PM EDT Office Visit [facility] UROLOGY [address] [facility] [address] [place] [phone] Teressa Finley, PREETI [address] [address] 11/01/2025 1:30 PM EST Office Visit [facility] CARDIOLOGY [address] [place] [address] Yaneth Ugarte MD [address] [place] [address] documented as of this encounter Visit Diagnoses Not on filedocumented in this encounter Care Teams Tire Finisher Relationship Specialty Start Date End Date Juarez Griffin MD [address] [place] [facility] [address] [place] [address] PCP - General Internal Medicine 05/30/23 documented as of this encounter
--- OUTSIDE RECORDS SUMMARY | 2025-06-12 23:43 | XMS_ITS | Encounter Summary ---
Author Organization [facility] Address [address] [place] [id number] Care Team Providers Care Hot Roll Laminator Name Role Phone Juarez Griffin MD Primary Care Provider Encounter Details Date Type Department Care Team (Late st Contact Info) Description 05/03/2025 Patient rounding ([facility] only) [facility] CARDIOLOGY [address] [place] [address] Yaneth Ugarte MD [address] [place] [address] Social History Tobacco Use Types Packs/Day Years Used Date Smoking Tobacco: Never Passive Smoke Exposure: Never Smokeless Tobacco: Never Alcohol Use Standard Drinks/Week Comments Not Currently 0 (1 standard drink = 0.6 oz pur e alcohol) Maybe [address] [facility] Utilities Answer Date Recorded In the past 12 months has [employer], gas, oil, or water [employer] threatened to shut off services in your [...] heating? Not hard at all 04/16/2024 [facility] [place] of Occupat ional Health - Occupational Stress [...] or training? Not on file Preferred Language Yoruba 02/25/2025 PHQ-2 Answer Date Recorded Retired PHQ-9: [...] is Landy Alonzo and I am the Geophysical Data Technician for [facility]. I would like to thank you for [...] your first visit to us as a [facility] facility? In the next few days, you will be receiving a Patient Experience Survey. Thank you for taking the time to answer a few questions today. I hope you have a good day. documented in this encounter Plan of Treatment Upcoming Encounters Date Type Department Care Team (Late st Contact Info) Description 07/01/2025 1:00 PM EDT Appointment [facility] UL[facility]OUND [place] [address] [place] [id number] 07/01/2025 2:00 PM EDT Appointment [facility] [address] [place] [address] [place] [phone] 07/06/2025 1:00 PM EDT Office Visit [facility] UROLOGY [address] [place] [address] Teressa Finley, HYGIENE ASSISTANT [address] [place] [address] 11/01/2025 1:30 PM EST Office Visit [facility] CARDIOLOGY [address] [place] [address] Yaneth Ugarte MD [address] [place] [address] documented as of this encounter Visit Diagnoses Not on filedocumented in this encounter Care Teams Hot Roll Laminator Relationship Specialty Start Date End Date Juarez Griffin MD [address] [place] [facility] [address] [facility] [address] [place] [address] PCP - General Internal Medicine 05/30/23 documented as of this encounter
--- OUTSIDE RECORDS SUMMARY | 2025-06-12 23:43 | XMS_ITS | Encounter Summary ---
[facility] Address [address] [place] [address] Care Team Providers Care Children'S Attendant Name Role Phone Juarez Griffin MD Primary Care Provider [phone] Reason for Visit * Reason Onset Date Comments DR AMES - CLINICAL 04/01/2025 Encounter Details Date Type Department Care Team (Late st Contact Info) Description 04/01/2025 Telephone [facility] UROLOGY 793 [facility] [address] [address] Demarcus Ames MD [address] [address] [address] AMES - CLINICAL Social History Tobacco Use Types Packs/Day Years Used Date Smoking Tobacco: Never Passive Smoke Exposure: Never Smokeless Tobacco: Never Alcohol Use Standard Drinks/Week Comments Not Currently 0 (1 standard drink = 0.6 oz pur e alcohol) Maybe 3 drinks annually [facility] Utilities Answer Date Recorded In the past 12 months has [employer], [employer], oil, or water [employer] threatened to shut off services in your [...] and heating? Not hard at all 04/16/2024 [facility] [place] of Occupat ional Health - Occupational Stress [...] or training? Not on file Preferred Language Anguillan 02/25/2025 PHQ-2 Answer Date Recorded Retired PHQ-9: [...] OUT TO DISCUSS BEST NUMBER IS CELL [phone] documented in this encounter Plan of Treatment Upcoming Encounters Date Type Department Care Team (Late st Contact Info) Description 07/01/2025 1:00 PM EDT Appointment [facility] ULTR[facility]OUND [place] [address] [place] [address] 07/01/2025 2:00 PM EDT Appointment [facility] [address] [facility] [place] [address] [place] [address] 07/06/2025 1:00 PM EDT Office Visit [facility] UROLOGY [address] [place] [address] Teressa Finley, FLIGHT DIRECTOR 793 [facility] 3 [facility] [address] [place] [address] 11/01/2025 1:30 PM EST Office Visit [facility] CARDIOLOGY [address] [place] [address] Yaneth Ugarte MD [address] [place] [address] documented as of this encounter Visit Diagnoses Not on filedocumented in this encounter Care Teams Children'S Attendant Relationship Specialty Start Date End Date Juarez Griffin MD 1210 [facility] [address] [place] [address] PCP - General Internal Medicine 05/30/23 documented as of this encounter
--- OUTSIDE RECORDS SUMMARY | 2025-06-12 23:43 | XMS_ITS | Clinical Summary ---
Author Organization [facility] Address [address] [place] [address] Care Team Providers Care Hydraulic Riveter Name Role Phone Juarez Griffin MD Primary Care Provider [phone] Karen Naqvi DO Unavailable [phone] Allergies Active Allergy Reactions Criticality Noted Date [...] Team Description 03/12/2025 Orders Only External Location [address] [place] [phone] Provider, External from Last 3 Months Immunizations Immunization Administration Dates Next Due Influenza, Injectable, MDCK, trivalent, PF 08/05 Influenza, Unspecified 10/29/2022 Pneumococcal Conjugate PCV 13 09/06/2021 Zoster, Recombinant 10/30/2023,05/27/2023 Family History Medical History Relation Name Comments Diabetes Father [place] Heart disease Father [place] Hypertension Father Wallace Dementia Mother Marzena Hypertension [...] drink first t yue in the morning (EYE-HYDROELECTRIC PLANT ELECTRICAL ENGINEER) to steady your nerves or to get [...] Health Maintenance Due Date Last Done Comments [facility]-Infant/Child/Adol SDOH Screenings 1973 Diabetes: Dental Exam 1983 [...] PPSV23) 11/01/2021 09/06/2021 [facility]-Breast Cancer Screening 2023 RLL-QAHVC-04 Vaccine ( - season) 2024 10/07/2022, 08/21/2021 [...] this topic Medical Devices Implanted Type Area Investigator Internal Affairs Device Identifier Shelf Expiration Date Model / Serial / Lot Stent Ureteral Double Pigtail Pos 6fr 24cm - [id number] - [id number] Implanted:Qty: 1 on 04/11/2024 by Harvey Macdonald MD at [facility] Stent Right: Ureter [employer]-[id number] 01/02/2026 [id number] / [id number] Loop Recorder-2016 Implanted:04/28 (Quantity not on file) [...] ORDERABLES Final Re sult Performing Organization Address [facility] Co de Phone Number [facility] [address] [place] [address] * Hepatitis C Antibody - ED (04/10/2024 6:11 PM EDT) Hepatitis C Antibody Negative Negative 04/10/2024 7:24 PM EDT [facility] Blood Venous blood specimen / Unknown Venipuncture / Unknown 04/10/2024 6:11 PM EDT 04/10/2024 6:26 PM EDT Susan Mcclure MD LAB BLOOD ORDERABLES Final Re sult Performing Organization Address City/[facility] Co de Phone Number [facility] [address] [place] [address] * (ABNORMAL) Hemoglobin A1c (04/10/2024 6:11 PM EDT) Hemoglobin A1c 6.3(H) <5.7 % 04/10/2024 9:31 PM EDT [facility] Blood Venous blood specimen / Unknown [...] Adults <6.0% Children and Adolescents <7.5% Source: [place] Diabetes Association. Standards of medical care in diabetes,2017. Diabetes Care.2017:40 (suppl 1):S1-S135. HbA1c assay performed by an ion-exchange chromatography method that is certified traceable to the DCCT. 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 Source: [facility]. This patient will require contact precautions indefinitely. 04/01/2024 Insurance [employer] MEDICAID Advance Directives * Full Code (Latest Code Status on File) Date Activated Date Inactivated Comments 04/11/2024 10:12 AM 04/12/2024 3:22 PM Question Answer Comments Patient has decision-making capacity? Yes Care Teams Hydraulic Riveter Relationship Specialty Start Date End Date Juarez Griffin MD [address] [place] [address] PCP - General 03/10/21 Karen Naqvi DO [facility]10 [facility] [address] [place] [address] Referring Physician Obstetrics and Gynecology 09/23/24
--- OUTSIDE RECORDS SUMMARY | 2025-06-12 23:43 | XMS_ITS | Encounter Summary ---
Author [facility] Address [address] [place] [address] Care Team Providers Care Barrel Stave Inspector Name Role Phone Juarez Griffin MD Primary Care Provider [phone] Reason for Visit * Reason Onset Date Comments DR AMES-CLINICAL 03/15/2025 Encounter Details Date Type Department Care Team (Late st Contact Info) Description 03/15/2025 Telephone [facility] UROLOGY 793 [facility] [address] [address] Demarcus Ames MD [address] [address] [address] AMES-CLINICAL Social History Tobacco Use Types Packs/Day Years Used Date Smoking Tobacco: Never Passive Smoke Exposure: Never Smokeless Tobacco: Never Alcohol Use Standard Drinks/Week Comments Not Currently 0 (1 standard drink = 0.6 oz pur e alcohol) Maybe 3 drinks annually [facility] Utilities Answer Date Recorded In the past 12 months has [employer], [employer], oil, or water [employer] threatened to shut off services in your [...] and heating? Not hard at all 04/16/2024 [facility] [place] of Occupat ional Health - Occupational Stress [...] or training? Not on file Preferred Language Niuean 02/25/2025 PHQ-2 Answer Date Recorded Retired PHQ-9: [...] 9:18 AM EDT Cathy Curtis RN * [place] Suicide Severity Rating Scale (Screener/Recent Self-Report) Question [...] SAMINA. PT WAS SEEN IN ED AT [facility] 03/11/25 - PT HAD ANOTHER KIDNEY [...] Info) Description 07/01/2025 1:00 PM EDT Appointment [facility] ULTRASOUND AT [address] [address] 07/01/2025 2:00 PM EDT Appointment [facility] [address] [place] [address] [place] [address] 07/06/2025 1:00 PM EDT Office Visit [facility] UROLOGY [address] [phone] Teressa Finley APRN [address] [facility] [address] [address] 11/01/2025 1:30 PM EST Office Visit [facility] CARDIOLOGY [address] [place] [address] Yaneth Ugarte MD [address] [place] [address] documented as of this encounter Visit Diagnoses Not on filedocumented in this encounter Care Teams Barrel Stave Inspector Relationship Specialty Start Date End Date Juarez Griffin MD [address] [place] [address] [place] [address] PCP - General Internal Medicine 05/30/23 documented as of this encounter
--- OUTSIDE RECORDS SUMMARY | 2025-06-12 23:43 | XMS_ITS | Encounter Summary ---
Author Organization [facility] Address [address] [place] [address] Care Team Providers Care Community Organization Aide Name Role Phone Juarez Griffin MD Primary Care Provider [phone] Encounter Details Date Type Department Care Team (Late st Contact Info) Description 05/10/2025 Results Follow-Up [facility] CARDIOLOGY [address] [place] [address] Yaneth Ugarte MD [address] [place], [place] [address] Social History Tobacco Use Types Packs/Day Years Used Date Smoking Tobacco: Never Passive Smoke Exposure: Never Smokeless Tobacco: Never Alcohol Use Standard Drinks/Week Comments Not Currently 0 (1 standard drink = 0.6 oz pur e alcohol) Maybe 3 drinks annually [facility] Utilities Answer Date Recorded In the past 12 months has [employer], gas, oil, or water [employer] threatened to shut off services in your [...] and heating? Not hard at all 04/16/2024 [place] of Occupat ional Health - Occupational Stress [...] or training? Not on file Preferred Language Nepali 02/25/2025 PHQ-2 Answer Date Recorded Retired PHQ-9: [...] Info) Description 07/01/2025 1:00 PM EDT Appointment [facility] ULTR[facility]OUND AT [place] [address] [place] [address] 07/01/2025 2:00 PM EDT Appointment [facility] CT [address] [place] [address] [place] [address] 07/06/2025 1:00 PM EDT Office Visit [facility] UROLOGY [address] [address] Teressa Finley, PREETI [address] [id number] 11/01/2025 1:30 PM EST Office Visit [facility] CARDIOLOGY [address] [place] [address] Yaneth Ugarte MD [address] [place] [address] documented as of this encounter Visit Diagnoses Not on filedocumented in this encounter Care Teams Community Organization Aide Relationship Specialty Start Date End Date Juarez Griffin MD 1210 [facility] [address] [place] [address] PCP - General Internal Medicine 05/30/23 documented as of this encounter
--- OUTSIDE RECORDS SUMMARY | 2025-06-12 23:43 | XMS_ITS | Clinical Summary ---
Author Organization [facility] Address [address] [place] [id number] Care Team Providers Care Checkering Machine Adjuster Name Role Phone Juarez Griffin MD Primary Care Provider [phone] Allergies Active Allergy Reactions Criticality Noted Date [...] 8 (Eight) Hours As Needed. 3 Active ipratropium-alb uterol (DUO-NEB) 0.5-2.5 mg/3 ml nebulizer As Needed. 3 Active Ventolin HFA 108 (90 Base) MCG/ACT inhaler INHALE TWO PUFFS BY MOUTH EVERY 4 TO 6 HOURS NEEDED 18 g 6 4 Active bumetanide (BUMEX) 2 MG tabletIndicatio ns:Swelling of lower extremity TAKE ONE TABLET BY MOUTH TWICE DAILY 60 tablet 11 4 Active Additional Information Patient taking differently:2 mg Oral 2 Times Daily,usually takes once per day with 2nd dose PRN, Informant: Self, Reported on 05/03/2025 vitamin C (ASCORBIC ACID) 500 MG tablet Daily. 4 Active naloxone (NARCAN) 4 MG/0.1ML nasal sprayIndication s:Nephrolithias is,Recurrent UTI Call 911. Don't prime. [place] in 1 nostril for overdose. Repeat in 2-3 minutes in other nostril if no or minimal breathing/respon siveness. 2 each 4 Active nebivolol (BYSTOLIC) 5 MG tablet TAKE ONE TABLET BY MOUTH EVERY DAY 90 tablet 5 4 Active Additional Information Patient taking differently: Nightly, Informant: Self, Reported on 05/03/2025 vitamin D3 125 MCG (5000 UT) capsule capsuleIndicati ons:Vitamin D deficiency Take 1 capsule by mouth [...] NEEDED FOR PAIN MAY CAUSE DROWSINESS Active sacubitril-vals fide (Entresto) 24-26 MG tabletIndicatio ns:Swelling of lower extremity Take 1 tablet by mouth 2 (Two) Times a Day. 60 tablet 2 5 Active Active Problems Problem Noted Date Diagnosed [...] Type Department Care Team Description 05/11/2025 Telephone [facility] CARDIOLOGY [address] [address] Shell Diaz RegSched Rep 05/10/2025 Results Follow-Up [facility] CARDI[facility] [address] [address] Ynaeth Ugarte MD 05/03/2025 1:30 PM EDT Office Visit [facility] CARDI[facility] [address] [address] Yaneth Ugarte MD Hypercholesterolemia (Primary Dx); PVC (premature ventricular contraction); Precordial chest pain; Swelling of lower extremity 05/03/2025 Patient rounding ([facility] only) [facility] CARDI[facility]Y [address] [address] Yaneth Ugarte MD 05/03/2025 Travel 04/29/2025 Telephone [facility] CARDIOLOGY [address] [address] Yaneth Ugarte MD 04/05/2025 9:00 AM EDT Procedure visit [facility] UROLOGY [address] [facility] [address] [address] Demarcus Ames MD Staghorn calculus (Primary Dx) 04/05/2025 Travel 04/01/2025 Telephone [facility] UROLOGY [address] [facility] [address] [address] TODD - CLINICAL 03/31/2025 10:26 AM EDT Anesthesia Event [facility] OR [address] [place] [address] Edgardo Ryan, SANDRA 03/31/2025 10:10 AM EDT - 03/31/2025 12:11 PM EDT Surgery [facility] OR [address] [place] [address] Demarcus Ames MD Percutaneous nephrolithotomy with stent placement left, cystoscopy 03/31/2025 10:05 AM EDT Anesthesia Event Converted [facility] ANESTHESIA [address] [place] [address] 03/31/2025 8:29 AM EDT - 03/31/2025 2:15 PM EDT Hospital Encounter [facility] OR [address] [place] [address] Demarcus Ames MD Staghorn calculus Discharge Disposition: Home or Self Care 03/31/2025 Telephone [facility] UROLOGY [address] [facility] [address] [address] TODD - POST OP FOLLOW UP 03/31/2025 Telephone [facility] UROLOGY [address] [place] [address] [address] TODD - SCHEDULING 03/31/2025 Travel 03/25/2025 Telephone [facility] UROLOGY [address] [facility] [address] [address] Demarcus Ames MD 03/24/2025 1:00 PM EDT Pre-Admission Testing [facility] PREADMISSION T [address] [place] [address] 03/24/2025 Travel 03/17/2025 Telephone [facility] UROLOGY [address] [place] [address] Demarcus Ames MD 03/16/2025 Telephone [facility] UROLOGY [address] [facility] [address] [place] [address] Demarcus Ames MD 03/15/2025 Telephone [facility] UROLOGY [address] [facility] [address] [place] [address] TODD-CLINICAL from Last 3 Months Family History Medical History Relation Name Comments Diabetes Father Wallace bradley Diabetes type II Father Wallace bradley Heart attack Father Wallace bradley X2 Heart disease Father Wallace bradley Hypertension Father Wallace bradley Obesity Father Wallace bradley Obesity Maternal Aunt Faye Heart disease Maternal Grandfather Bony Armas Cancer Maternal Uncle 1 Lino armas Obesity Maternal Uncle 2 Steve Dementia Mother Marzena marieon Hypertension Mother Marzena bradley Lupus Mother Marzena kirk Obesity Mother Marzena bradley Cancer Paternal Grandfather Unknown Heart disease Paternal Grandfather Unknown Anemia Sister Marta Atrial fibrillation Sister Marta Cancer Sister Marta Skin Fibroids Sister Marta Hypertension Sister Marta Kidney disease Sister Marta Liver disease Sister Marta Obesity Sister Marta Thyroid disease Sister Marta Relation Name Status Comments Father Wallace bradley Maternal Aunt Faye Maternal Grandfather Bony Easonna Alive Maternal Uncle 1 Lino armas Maternal [...] pur e alcohol) Maybe 3 drinks annually [facility] Utilities Answer Date Recorded In the past 12 months has [employer], gas, oil, or water company threatened to [...] and heating? Not hard at all 04/16/2024 [facility] - [...] or training? Not on file Preferred Language Grenadian 02/25/2025 PHQ-2 Answer Date Recorded Retired PHQ-9: [...] Info) Description 07/01/2025 1:00 PM EDT Appointment [facility] AT [address] [address] 07/01/2025 2:00 PM EDT Appointment [facility] [place] [address] [place] [address] 07/06/2025 1:00 PM EDT Office Visit [facility] UROLOGY [address] [address] Teressa Finley, STARS SPECIALIST [address] [facility] [address] [place] [address] 11/01/2025 1:30 PM EST Office Visit [facility] CARDIOLOGY [address] [place] [address] Yaneth Ugarte MD [address] [place] [address] Health Maintenance Due Date Last Done [...] Completed 04/10/2024 Medical Devices Implanted Type Area Crime Scene Investigator Device Identifier Shelf Expiration Date Model / Serial / Lot Kt Seal Hemos Abs Floseal Matrx Fast/Prep 5ml - [id number] Implanted:Qty : 1 on 04/15/2024 by Demarcus Ames MD at [facility] Implant Right: Kidney [employer] 05/29/2025 [id number] / / [id number] Clip Ligat Vasc Horizon Ti Daniel 6ct - [id number] Implanted:Qty : 2 on 03/04/2025 by Zac Mckoen MD at [facility] Implant N/A: Neck [employer] [id number] / / Clip Ligat Vasc Horizon Ti Sm Yel 6ct - [id number] Implanted:Qty : 4 on 03/04/2025 by Zac Mckeon MD at [facility] Implant N/A: Neck [employer] [id number] / / Hemost Abs Surgicel Orig 4x8in Strl - [id number] Implanted:Qty : 1 on 03/04/2025 by Zac Mckeon MD at [facility] Implant N/A: Neck [employer] J [id number] / / Kt Seal Hemos Abs Floseal Matrx 1.5/Fast/Prep 5000/Iu 5ml - [id number] Implanted:Qty : 1 on 03/31/2025 by Demarcus Ames MD at [facility] Implant Left: Back [employer] 08/13/2026 [id number] / / [id number] Stnt Percuflx No Gw 7x26 - [id number] Implanted:Qty : 1 on 04/15/2024 by Demarcus Ames MD at [facility] Stent Right: Kidney [employer] 09/06/2026 [id number] / / [id number] Stnt Percuflx No Gw 7x26 - [id number] Implanted:Qty : 1 on 03/31/2025 by Demarcus Ames MD at [facility] Stent Left: Back [employer] 08/10/2027 [id number] / / [id number] Procedures Procedure Name Priority Date/Time Associated Diagnosis Comments COMPREHENSIVE METABOLIC PANEL Routine 05/07/2025 Hypercholesterolem ia PVC (premature ventricular contraction) LIPID PANEL Routine 05/07/2025 Hypercholesterolem ia PVC (premature ventricular contraction) MAGNESIUM Routine 05/07/2025 Hypercholesterolem ia PVC (premature ventricular contraction) TSH RFX ON ABNORMAL TO FREE T4 Routine 05/07/2025 Hypercholesterolem ia PVC (premature ventricular contraction) ECG 12-LEAD Routine [...] Routine 03/24/2025 1:08 PM EDT Staghorn calculus from Last 3 Months Results * TSH Rfx On Abnormal To Free T4 (05/07/2025) Blood us Yaneth Ugarte MD LAB BLOOD ORDERABLES Final R esult Performing Organization Address [facility] Co de Phone Number [facility]
[address] [place] [address], [place] [phone] * Magnesium (05/07/2025) Blood us Yaneth Ugarte MD LAB BLOOD ORDERABLES Final R esult Performing Organization Address [facility] Co de Phone Number [facility]
[address] [place] [address], [place] [phone] * Lipid Panel (05/07/2025) Blood us Yaneth Ugarte MD LAB BLOOD ORDERABLES Final R esult Performing Organization Address City/[facility]/ZIP Co de Phone Number [facility]
[address] [place] [address], [place] [phone] * Comprehensive Metabolic Panel (05/07/2025) Blood us Yaneth Ugarte MD LAB BLOOD ORDERABLES Final R esult Performing Organization Address [facility] Co de Phone Number [facility]
[address] [place] [address], [place] [phone] * ECG 12-LEAD (05/03/2025 2:22 PM EDT) [...] PARATHYROIDECTOMY; Surgeon: Zac Mckeon MD;Location: [facility]; Service: General; Laterality: N/A; PERCUTANEOUS NEPHROSTOLITHOTOMY Right 04/15/2024 Procedure: CYSTOSCOPY & BALLOON OCCLUSION CATHETER PLACEMENT, PRIMARYPERCUTANEOUS ACCESS, NEPHROSTOLITHOTOMY PERCUTANEOUS, WITH STENT EXCHANGE;Surgeon: Demarcus Ames MD; Location: [facility]; Service:Urology; Laterality: Right; PERCUTANEOUS NEPHROSTOLITHOTOMY Left 03/31/2025 Procedure: Percutaneous nephrolithotomy with stent placement left,cystoscopy; Surgeon: Demarcus Ames MD; Location: [facility] OR;Service: Urology; Laterality: Left; TUBAL ABDOMINAL [...] file. Laura Ugarte MD Cardiology and Sleep [facility] 05/03/2025 Please note that this explicitly [...] procedure was auto-finalized with no dictation required. us Demarcus Ames MD IMG FLUOROSCOPY ORDERABLE S Final Result * (ABNORMAL) Tissue / Bone Culture - Calculus, Kidney, Left (03/31/2025 11:55 AM EDT) Tissue Culture Rare growth Proteus mirabilis(A) TOMASA 04/03/2025 9:18 AM EDT [facility] Gram Stain No organisms seen 04/03/2025 9:18 AM EDT [facility] Calculus Left kidney structure / [...] MICROBIOLOGY - GENERAL OR DERABLES Final Result [facility]
[address] [place] [address], [place] [phone] [facility]
[address] [place] [address], [place] [phone] * STONE ANALYSIS - Calculus, Kidney, Left [...] 04/14/2025 10:06 PM EDT [facility] Magnesium Peggs Phos 40 % 04/14/2025 10:06 PM EDT [...] 04/14/2025 10:06 PM EDT Performed at: - [facility] [address] [place] [address] [phone] After School Driver: Mariam Turner PhD, Phone: [phone] us Demarcus Ames MD BODY FLUIDS AND STOOLS OR DERABLES Final Result [facility] [address] [place] [address], * BH AN ETT AIRWAY (03/31/2025 10:40 AM EDT) Narrative Edgardo Ryan CRNA - 03/31/2025 10:40 AM EDT Edgardo Ryan CRNA 03/31/2025 10:41 AM Airway Reason: elective Date/Time: 03/31/2025 10:32 AM Airway not difficult General Information and Staff Patient location during procedure: OR APPLICATION HELPER/CAA: Edgardo Ryan CRNA Indications and Patient Condition [...] POC Glucose Once (03/31/2025 9:12 AM EDT) [facility] Glucose 200(H) 70 - 130 mg/dL 03/31/2025 9:33 AM EDT [facility] Comment:Serial Number: [id number]: [id number] Blood 03/31/2025 9:12 AM EDT 03/31/2025 9:33 AM EDT Demarcus Ames MD POINT OF CARE TEST ORDERA BLES Final Result [facility]
[address] [place] [address], * Type & Screen (03/31/2025 9:03 AM EDT) ABO Type AB 03/31/2025 10:05 AM EDT [facility] RH type Positive 03/31/2025 10:05 AM EDT [facility] Antibody Screen Negative 03/31/2025 10:05 AM EDT [facility] T&S Expiration Date 04/03/2025 11:59:59 PM 03/31/2025 10:05 AM EDT [facility] Blood Venipuncture / Unknown 03/31/2025 9:03 AM EDT 03/31/2025 9:09 AM EDT Demarcus Ames MD BLOOD BANK TEST ORDERABLE S Edited Result - Final [facility]
[address] [place] [address], * Telemetry Scan (03/31/2025) [facility] Onbase ECG ORDERABLES Final Result * CBC (No Diff) (03/24/2025 1:13 PM EDT) WBC 10.22 3.40 - 10.80 10*3/mm3 03/24/2025 3:17 PM EDT [facility] RBC 5.25 3.77 - 5.28 10*6/mm3 03/24/2025 3:17 PM EDT [facility] Hemoglobin 14.8 12.0 - 15.9 g/dL 03/24/2025 3:17 PM EDT [facility] Hematocrit 45.0 34.0 - 46.6 % 03/24/2025 3:17 PM EDT [facility] MCV 85.7 79.0 - 97.0 fL 03/24/2025 3:17 PM EDT [facility] MCH 28.2 26.6 - 33.0 pg 03/24/2025 3:17 PM EDT [facility] MCHC 32.9 31.5 - 35.7 g/dL 03/24/2025 3:17 PM EDT [facility] RDW 13.8 12.3 - 15.4 % 03/24/2025 3:17 PM EDT [facility] RDW-SD 42.9 37.0 - 54.0 fl 03/24/2025 3:17 PM EDT [facility] MPV 11.2 6.0 - 12.0 fL 03/24/2025 3:17 PM EDT [facility] Platelets 326 140 - 450 10*3/mm3 03/24/2025 3:17 PM EDT [facility] Blood Line / Unknown 03/24/2025 1: 13 PM EDT 03/24/2025 3:13 PM EDT Demarcus Ames MD LAB BLOOD ORDERABLES Mariae l Result [facility]
[address] [place] [id number], * (ABNORMAL) Basic Metabolic Panel (03/24/2025 1:13 PM EDT) [facility] Glucose 120(H) 65 - 99 mg/dL 03/24/2025 3:42 PM EDT [facility] BUN 16.0 6.0 - 20.0 mg/dL 03/24/2025 3:42 PM EDT [facility] Creatinine 0.90 0.57 - 1.00 mg/dL 03/24/2025 3:42 PM EDT [facility] Sodium 140 136 - 145 mmol/L 03/24/2025 3:42 PM EDT [facility] Potassium 4.1 3.5 - 5.2 mmol/L 03/24/2025 3:42 PM EDT [facility] Chloride 97(L) 98 - 107 mmol/L 03/24/2025 3:42 PM EDT [facility] CO2 26.5 22.0 - 29.0 mmol/L 03/24/2025 3:42 PM EDT [facility] Calcium 9.7 8.6 - 10.5 mg/dL 03/24/2025 3:42 PM EDT [facility] BUN/Creatinine Ratio 17.8 7.0 - 25.0 03/24/2025 3:42 PM EDT [facility] Anion Gap 16.5(H) 5.0 - 15.0 mmol/L 03/24/2025 3:42 PM EDT [facility] eGFR 77.6 >60.0 mL/min/1.7 3 03/24/2025 3:42 PM EDT [facility] Blood Line / Unknown 03/24/2025 1: 13 PM EDT 03/24/2025 3:13 PM EDT Narrative [facility] - 03/24/2025 3:42 PM EDT GFR [...] LAB BLOOD ORDERABLES Maria E hwang Result [facility]
[address] [place] [address], [place] [phone] * (ABNORMAL) Urinalysis, Microscopic Only - Urine, Clean Catch (03/24/2025 1:08 PM EDT) RBC, UA 3-5(A) None Seen, 0-2 /HPF 03/24/2025 3:45 PM EDT [facility] WBC, UA 6-10(A) None Seen, 0-2 /HPF 03/24/2025 3:45 PM EDT [facility] Bacteria, UA Trace(A) None Seen /HPF 03/24/2025 3:45 PM EDT [facility] Squamous Epithelial Cells, UA 0-2 None Seen, 0-2 /HPF 03/24/2025 3:45 PM EDT [facility] Hyaline Casts, UA 0-2 None Seen /LPF 03/24/2025 3:45 PM EDT [facility] Methodology Manual Light Microscopy 03/24/2025 3:45 PM EDT [facility] Urine Urine specimen obtained by clean catch procedure / Unknown Collection / Unknown 03/24/2025 1:08 PM EDT 03/24/2025 3:12 PM EDT Demarcus Ames MD URINE ORDERABLES Final Re sult [facility]
[address] [place] [address], * (ABNORMAL) Urinalysis With Culture If Indicated - Urine, Clean Catch (03/24/2025 1:08 PM EDT) Color, UA Yellow Yellow, Straw 03/24/2025 3:31 PM EDT [facility] Appearance, UA Clear Clear 03/24/2025 3:31 PM EDT [facility] pH, UA 5.5 5.0 - 8.0 03/24/2025 3:31 [facility] Specific [place], UA 1.010 1.005 - 1.030 03/24/2025 3:31 PM EDT [facility] Glucose, UA >=1000 mg/dL (3+)(A) Negative 03/24/2025 3:31 PM EDT [facility] Ketones, UA Negative Negative 03/24/2025 3:31 PM EDT [facility] Bilirubin, UA Negative Negative 03/24/2025 3:31 PM EDT [facility] Blood, UA Small (1+)(A) Negative 03/24/2025 3:31 PM EDT [facility] Protein, UA Negative Negative 03/24/2025 3:31 PM EDT [facility] Leuk Esterase, UA Small (1+)(A) Negative 03/24/2025 3:31 PM EDT [facility] Nitrite, UA Negative Negative 03/24/2025 3:31 PM EDT [facility] Urobilinogen, UA 0.2 E.U./dL 0.2 - 1.0 E.U./dL 03/24/2025 3:31 PM EDT [facility] Urine Urine specimen obtained by clean catch procedure / Unknown Collection / Unknown 03/24/2025 1:08 PM EDT 03/24/2025 3:12 PM EDT [facility] - 03/24/2025 3:31 PM EDT In absence of clinical symptoms, the presence of pyuria, bacteria, and/or nitrites on the urinalysis result does not correlate with infection. us Demarcus Ames MD URINE ORDERABLES Final Re sult [facility]
[address] [place] [address], * Urine Culture - Urine, Urine, Clean Catch (03/24/2025 1:08 PM EDT) Urine Culture <25,000 CFU/mL Normal Urogenital Martina TOMASA 03/25/2025 11:10 AM EDT [facility] Urine Urine specimen obtained by clean catch procedure / Unknown Collection / Unknown 03/24/2025 1:08 PM EDT 03/24/2025 3:12 PM EDT Narrative [facility] - 03/25/2025 11:10 AM EDT Colonization of the urinary tract without infection is common. Treatment is discouraged unless the patient is symptomatic, , or undergoing an invasive urologic procedure. us Demarcus Ames MD MICROBIOLOGY - GENERAL OR DERABLES Final Result [facility]
[address] [place] [address], from Last 3 Months Insurance [facility] Care Teams Checkering Machine Adjuster Relationship Specialty Start Date End Date Juarez Griffin MD [address] [facility] [address] [facility] [address] PCP - General Internal Medicine 05/30/23
--- OUTSIDE RECORDS SUMMARY | 2025-06-12 23:43 | XMS_ITS | Encounter Summary ---
[facility] Address [address] [place] [id number] Care Team Providers Care Security Lead Name Role Phone Juarez Griffin MD Primary Care Provider [phone] Encounter Details Date Type Department Care Team (Late st Contact Info) Description 04/29/2025 Telephone [facility] C[facility]IOLOG[facility] [address] [place] [address] Yaneth Ugarte MD [address] [place] [address] Social History Tobacco Use Types Packs/Day Years Used Date Smoking Tobacco: Never Passive Smoke Exposure: Never Smokeless Tobacco: Never Alcohol Use Standard Drinks/Week Comments Not Currently 0 (1 standard drink = 0.6 oz pur e alcohol) Maybe 3 drinks annually [facility] Utilities Answer Date Recorded In the past 12 months has [employer], gas, oil, or water [employer] threatened to shut off services in your [...] and heating? Not hard at all 04/16/2024 [facility] - Occupational Stress [...] Info) Description 07/01/2025 1:00 PM EDT Appointment [facility]TR[facility]OUND AT [place] [address] [place] [address] 07/01/2025 2:00 PM EDT Appointment [facility] CT AT [place] [address] [place] [address] 07/06/2025 1:00 PM EDT Office Visit [facility] UROLOGY [address] [place] [address] Teressa Finley, PREETI [address] [place] [address] 11/01/2025 1:30 PM EST Office Visit [facility] [address] [address] Yaneth Ugarte MD [address] [address] documented as of this encounter Visit Diagnoses Not on filedocumented in this encounter Care Teams Security Lead Relationship Specialty Start Date End Date Juarez Griffin MD [address] [place] [facility] [address] [address] PCP - General Internal Medicine 05/30/23 documented as of this encounter
--- OUTSIDE RECORDS SUMMARY | 2025-06-12 23:43 | XMS_ITS | Clinical Summary ---
Author Organization [facility] Address [address] [facility] [address] [place] [address] Phone Care Team Providers Care Front Desk Worker Name Role Phone Zofia Perkins Unavailable Unavailable Conditions or Problems Problem Name Problem Code Onset Date Status Entry Date Provider Comment Standard Description Annotate Acute Pyelonephritis 14676839 (SNOMED CT) 01/07 Active 01/07 Malina Ames Acute pyelonephritis Obstructive uropathy with infection N13.6 (ICD-10-C M) 01/07 Active 01/07 Malina Ames Pyonephrosis Neutrophilic leukemoid reaction D72.823 (ICD-10-C M) 01/07 Active 01/07 Malina Ames Leukemoid reaction COPD 72400530 (SNOMED CT) 01/07 Active 01/07 Malina Ames Chronic obstructive pulmonary disease Morbid obesity due to excess calories E66.01 (ICD-10-C M) 01/07 Active 01/07 Malina Ames Morbid (severe) obesity due to excess calories DM Type II E11.9 (ICD-10-C M) 01/07 Active 01/07 Malina Ames Type 2 diabetes mellitus without complications Benign hypertensive heart disease with chronic diastolic heart failure (I50.32) 37722234 (SNOMED CT) 01/07 Active 01/07 Malina Ames Benign hypertension Medications Medication Instructions Start Date Stop Date Generic Name [facility] Provider FOSFOMYCIN TROMETHAMINE 3 GM PACK Take 1 packet by mouth as directed take 1 packet every 3-4 days (2 times weekly) fosfomycin tromethamine [id number] Calvin Villarreal MD PREDNISONE 20 MG TABS prednisone 43137724464 Milly Jabierbrianne VITAMIN C 500 MG CAPS twice a day ascorbic acid (vitamin c) 16407549547 Milly Mosquera HIPREX 1 GM TABS Take 1 tablet by mouth twice a day 02/18 methenamine hippurate 98056798042 Calvin Villarreal MD INDOMETHACIN 50 MG CAPS Take 1 capsule by mouth three times a day indomethacin 20334546071 Linda De Leon SUCRALFATE 1 GM TABS Take 1 tablet by mouth four times a day sucralfate 55846374347 Linda De Leon BUMETANIDE 2 MG TABS Take 1 tablet by mouth twice a day bumetanide 81765283824 Linda De Leon PRAVASTATIN SODIUM 10 MG TABS Take 1 tablet by mouth every night pravastatin 06455390779 Linda De Leon ENTRESTO 24-26 MG TABS Take 1 tablet by mouth twice a day sacubitril-valsa rtan 16497912826 Linda De Leon VENTOLIN HFA 108 (90 Base) MCG/ACT AERS Inhale 2 puff by mouth every four to six hours as needed albuterol sulfate 77282587695 Linda De Leon ADVAIR DISKUS 250-50 MCG/ACT AEPB Inhale 1 puff twice a day fluticasone propion-salmeter ol 33183928030 Linda De Leon OMEPRAZOLE 20 MG CPDR Take 1 capsule by mouth once a day omeprazole 77912955844 Linda De Leon METFORMIN HCL 500 MG TABS Take 1 tablet by mouth twice a day metformin 17284328202 Linda De Leon FARXIGA 10 MG TABS Take 10 mg by mouth once a day dapagliflozin propanediol 11755195967 Linda De Leon IBUPROFEN (IBUPROFEN) 800 MG TABS Take 1 tablet by mouth every six hours as needed IBUPROFEN Linda De Leon TIZANIDINE HCL 4 MG TABS Take 1 tablet by mouth as needed tizanidine 82372460034 Linda De Leon TRAMADOL HCL 50 MG TABS every twelve hours tramadol 59768693196 Linda De Leon NITROGLYCERIN 0.[address] 1 tablet under tongue as needed nitroglycerin 85012356149 Linda Moises ONDANSETRON HCL 4 MG TABS Take 1 tablet by mouth every eight hours as needed ondansetron hcl 06692975476 Linda Moises SPIRONOLACTONE 50 MG TABS Take 1 tablet by mouth once a day spironolactone 49333487225 Linda De Leon SITagliptin (JANUVIA) 25 MG tablet Take 1 tablet by mouth once a day JANOLIVER De Leon NEBIVOLOL HCL 5 MG TABS Take 1 tablet by mouth once a day nebivolol 05192235114 Jazieltyree De Leon GLYXAMBI 10-5 MG TABS Take 1 tablet by mouth once a day empagliflozin-li nagliptin 61366325084 Linda De Leon VENTOLIN HFA 108 (90 Base) MCG/ACT AERS INHALE TWO PUFFS BY MOUTH EVERY 4 TO 6 HOURS NEEDED 01/19 albuterol sulfate 11400401429 QIE qieuser TRAMADOL HCL 50 MG TABS Every 12 (Twelve) Hours. 01/19 tramadol 69914834065 QIE qieuser TIZANIDINE HCL 4 MG TABS Take 1 tablet by mouth As Needed. 01/19 tizanidine 29355474979 QIE qieuser SUCRALFATE 1 GM TABS Take 1 tablet by mouth 4 (Four) Times a Day. 01/19 sucralfate 48963569444 QIE qieuser SPIRONOLACTONE 50 MG TABS TAKE ONE TABLET BY MOUTH EVERY DAY 01/19 spironolactone 32645694828 QIE qieuser SITagliptin (JANUVIA) 25 MG tablet Take 1 tablet by mouth Daily. 01/19 JANUVIA QIE qieuser PRAVASTATIN SODIUM 10 MG TABS TAKE ONE TABLET BY MOUTH EVERY DAY AT BEDTIME 01/19 pravastatin 37192618248 QIE qieuser ONDANSETRON HCL 4 MG TABS Take 1 tablet by mouth Every 8 (Eight) Hours As Needed. 04/27 ondansetron hcl 74422567939 QIE qieuser OMEPRAZOLE 20 MG CPDR TAKE ONE CAPSULE BY MOUTH EVERY DAY 04/27 omeprazole 33745499318 QIE qieuser O2 (OXYGEN) 2 L by Alternating Nares route Every Night. OXYGEN QIE qieuser NITROGLYCERIN 0.[address] 1 tablet under the tongue As Needed for Chest Pain. 01/19 nitroglycerin 50644393082 QIE qieuser NEBIVOLOL HCL 5 MG TABS TAKE ONE TABLET BY MOUTH EVERY DAY 01/19 nebivolol 69114686934 QIE qieuser METFORMIN HCL 500 MG TABS Take 1 tablet by mouth 2 (Two) Times a Day. 01/19 metformin 05294063119 QIE qieuser IPRATROPIUM-ALBUT MIK 0.5-2.5 (3) MG/3ML SOLN ipratropium-albu terol 39599625036 QIE qieuser INDOMETHACIN 50 MG CAPS Take 1 capsule by mouth 3 (Three) Times a Day With Meals. 01/19 indomethacin 71704884897 QIE qieuser IBUPROFEN (IBUPROFEN) 800 MG TABS Take 1 tablet by mouth Every 6 (Six) Hours As Needed. 01/19 IBUPROFEN QIE qieuser ENTRESTO 24-26 MG TABS TAKE ONE TABLET BY MOUTH TWICE DAILY 01/19 sacubitril-valsa rtan 04567126402 QIE qieuser GLYXAMBI 10-5 MG TABS Take 1 tablet by mouth Daily. 01/19 empagliflozin-li nagliptin 75832315517 QIE qieuser FARXIGA 10 MG TABS Take 10 mg by mouth Daily. 01/19 dapagliflozin propanediol 72353585862 QIE qieuser BUMETANIDE 2 MG TABS TAKE ONE TABLET BY MOUTH TWICE DAILY 01/19 bumetanide 36429082301 QIE qieuser ADVAIR DISKUS 250-50 MCG/ACT AEPB Inhale 1 puff 2 (Two) Times a Day. 01/19 fluticasone propion-salmeter ol 22756155858 QIE qieuser CEFUROXIME AXETIL 500 MG TABS 1 tablet by mouth twice a day cefuroxime axetil 27411123170 Calvin Villarreal MD Medications Administered No information available. Allergies, Adverse Reactions, Alerts Allergy Name Reaction Description Start Date Severity Statu s Provider AUGMENTIN anaphylaxis Critical Active Avani donahue Arnbrianne SULFAMETHOXAZOLE-TRIME THOPRIM Other (See Comments) Moderate Active Keke Amaral ROSUVASTATIN Anaphylaxis Critical Active Raquel Amaral PNEUMOCOCCAL 13-RAFAEL CONJ VACC Anaphylaxis Critical Active Keke Amaral BEE VENOM Anaphylaxis Critical Active Keke Amaral ASPIRIN Anaphylaxis Critical Active Keke Amaral LEVOFLOXACIN Moderate Active Leticia Bonner RN Results Date Name Value Unit Range Flag Description Clinical Lists Update: Prelo ad VAPE_USE Never Tobacco smok ing status Office Visit: Office Visit: room 7 ORALTOBACUSE Never Tobacco smoking status SMOK STATUS Never smoker Toba 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
--- OUTSIDE RECORDS SUMMARY | 2025-06-12 23:43 | XMS_ITS | Clinical Summary ---
Author Organization [employer] ([place], [place], [place], [place]) Address [address] [place] [address] Care Team Providers Care Stabilizer Operator Name Role Phone Juarez Griffin MD Primary Care Provider [phone] Allergies Active Allergy Reactions Criticality Noted Date [...] Do you speak a language other than [place] at [facility]? No 12/27/2023 Do you want help with [...] Completed 10/30/2023, Medical Devices Implanted Type Area Trigonometry Teacher Device Identifier Shelf Expiration Date Model / Serial / Lot Loop Recorder LOOP RECORDER Left: Chest Insurance [employer] [facility] OF [place] Advance Directives For more information, please contact: [phone] * Full Code (Latest Code Status on File) Date Activated Date Inactivated Comments 12/27/2023 3:21 AM 12/30/2023 2:53 PM -Attempt Resus citation if person has no pulse and is not breathing. -If no pulse or not breathing attempt CPR/CODE. -Call Rapid Response if patient is in distress. Care Teams Stabilizer Operator Relationship Specialty Start Date End Date Juarez Griffin MD [address] [place] [address] PCP - General General Internal Medicine 12/30/23
--- OUTSIDE RECORDS SUMMARY | 2025-06-12 23:43 | XMS_ITS | Encounter Summary ---
Author Organization [facility] Address [address] [place] [address] Care Team Providers Care Steam Plant Operator Name Role Phone Juarez Griffin MD Primary Care Provider [phone] Karen Naqvi DO Unavailable [phone] Encounter Details Date Type Department Care Team ([facility] st Contact Info) Description 02/12/2024 Orders Only External Location [address] [place] [address] Gennaro Cuevas MD [facility] [address] [place] [address] Social History Tobacco Use Types Packs/Day Years [...] 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 Source: [facility]. This patient will require contact precautions indefinitely. 04/01/2024 documented as of this encounter Care Teams Steam Plant Operator Relationship Specialty Start Date End Date Juarez Griffin MD [address] [place] [address] PCP - General 03/10/21 Karen Naqvi DO [facility] [address] [place] [address] Referring Physician Obstetrics and Gynecology 09/23/24 documented as of this encounter
--- OUTSIDE RECORDS SUMMARY | 2025-06-12 23:43 | XMS_ITS | Encounter Summary ---
Author Organization [facility] Address [address] [place] [address] Care Team Providers Care Property Master Name Role Phone Juarez Griffin MD Primary Care Provider [phone] Encounter Details Date Type Department Care Team (Late st Contact Info) Description 05/11/2025 Telephone [facility] CARDIOLOGY [address] [place] [address] Shell Diaz RegSched Rep Social History Tobacco Use Types Packs/Day Years Used Date Smoking Tobacco: Never Passive Smoke Exposure: Never Smokeless Tobacco: Never Alcohol Use Standard Drinks/Week Comments Not Currently 0 (1 standard drink = 0.6 oz pur e alcohol) Maybe 3 drinks annually [facility] Utilities Answer Date Recorded In the past 12 months has [employer], gas, oil, or water company threatened [...] and heating? Not hard at all 04/16/2024 [facility] [place] of Occupat ional Health - Occupational Stress [...] or training? Not on file Preferred Language Serbian 02/25/2025 PHQ-2 Answer Date Recorded Retired PHQ-9: [...] Info) Description 07/01/2025 1:00 PM EDT Appointment [facility] [place] [address] [place] [address] 07/01/2025 2:00 PM EDT Appointment [facility] [place] [address] [place] [address] 07/06/2025 1:00 PM EDT Office Visit [facility] UROLOGY [address] [phone] Teressa Finley, BOAT DOCK OPERATOR [address] [facility] [address] [place], [place] [address] 11/01/2025 1:30 PM EST Office Visit [facility] CARDIOLOGY [address] [place] [address] Yaneth Ugarte MD [address] [place] [address] documented as of this encounter Visit Diagnoses Not on filedocumented in this encounter Care Teams Property Master Relationship Specialty Start Date End Date Juarez Griffin MD [address] [facility] [address] [facility] [address] [place] [address] PCP - General Internal Medicine 05/30/23 documented as of this encounter
--- OUTSIDE RECORDS SUMMARY | 2025-06-12 23:43 | XMS_ITS | Encounter Summary ---
[facility] Address [address] [place] [id number] Care Team Providers Care Coverage Analyst Name Role Phone Juarez Griffin MD Primary Care Provider [phone] Encounter Details Date Type Department Care Team (Late st Contact Info) Description 04/20/2024 Telephone [facility] UROLOGY [address] [facility] [address] [address] Demarcus Ames MD [address] [address] Social History Tobacco Use Types Packs/Day Years Used Date Smoking Tobacco: Never Passive Smoke Exposure: Never Smokeless Tobacco: Never Alcohol Use Standard Drinks/Week Comments Yes 0 (1 standard drink = 0.6 oz pur e alcohol) rarely [facility] Utilities Answer Date Recorded In the past 12 months has [employer], gas, oil, or water [employer] threatened to shut off services in your [...] and heating? Not hard at all 04/16/2024 [facility] [place] of Occupat ional Health - Occupational Stress [...] GED or equivalent No 04/16/2024 Preferred Language Maori 04/16/2024 PHQ-2 Answer Date Recorded Retired PHQ-9: [...] Info) Description 07/01/2025 1:00 PM EDT Appointment [facility] [place] [address] [place] [address] 07/01/2025 2:00 PM EDT Appointment [facility] [place] [address] [place] [address] 07/06/2025 1:00 PM EDT Office Visit [facility] UROLOGY [address] [address] Teressa Finley, STAFF TRAINING AND DEVELOPMENT MANAGER [address] [address] 11/01/2025 1:30 PM EST Office Visit [facility] CARDIOLOGY [address] [place] [address] Yaneth Ugarte MD [address] [place] [address] documented as of this encounter Visit Diagnoses Not on filedocumented in this encounter Additional Health Concerns Infection Onset Date Last Indicated Resolved Time ESBL 04/01/2024 04/01/2024 03/03/2025 6:48 AM EDT documented as of this encounter Care Teams Coverage Analyst Relationship Specialty Start Date End Date Juarez Griffin MD [address] [facility] [address] [place] [address] PCP - General Internal Medicine 05/30/23 documented as of this encounter
--- OUTSIDE RECORDS SUMMARY | 2025-06-12 23:43 | XMS_ITS | Encounter Summary ---
[facility] Organization [facility] Address [address] [place] [id number] Care Team Providers Care Duct Maker Name Role Phone Juarez Griffin MD Primary Care Provider [phone] Encounter Details Date Type Department Care Team (Late st Contact Info) Description 04/16/2024 Retail Pharmacy Consultation [facility] [address] [address] [place] [address] [facility] [address] [place], [place] [id number] Social History Tobacco Use Types Packs/Day Years Used Date Smoking Tobacco: Never Passive Smoke Exposure: Never Smokeless Tobacco: Never Alcohol Use Standard Drinks/Week Comments Yes 0 (1 standard drink = 0.6 oz pur e alcohol) rarely C Utilities Answer Date Recorded In the past 12 months has [employer], gas, oil, or water [employer] threatened to shut off services in your [...] and heating? Not hard at all 04/16/2024 [facility] [place] of Occupat ional Health - Occupational Stress [...] GED or equivalent No 04/16/2024 Preferred Language Danish 04/16/2024 PHQ-2 Answer Date Recorded Retired PHQ-9: [...] 07/01/2025 1:00 PM EDT Appointment [facility] [place] [address] [place] [address] 07/01/2025 2:00 PM EDT Appointment [facility] [place] [address] [place] [address] 07/06/2025 1:00 PM EDT Office Visit [facility] UROLOGY [address] [address] Teressa Finley APRN [address] [address] 11/01/2025 1:30 PM EST Office Visit [facility] CARDIOLOGY [address] [place] [address] Yaneth Ugarte MD [address] [place] [address] documented as of this encounter Visit Diagnoses Not on filedocumented in this encounter Additional Health Concerns Infection Onset Date Last Indicated Resolved Time ESBL 04/01/2024 04/01/2024 03/03/2025 6:48 AM EDT documented as of this encounter Care Teams Duct Maker Relationship Specialty Start Date End Date Juarez Griffin MD [address] [place] [address] PCP - General Internal Medicine 05/30/23 documented as of this encounter
--- NOTE | 2025-06-12 23:45 | CT_ITS ---
PROCEDURE INFORMATION: Exam: CT Abdomen And Pelvis With Contrast Exam date and time: 06/13/2025 12:49 AM Age: 50 years old Clinical indication: Condition or disease; Other: UTI; Prior surgery; Surgery date: 1-6 months; Surgery type: Stone removal; Additional info: UTI pyelo recent stone removal 2mo ago TECHNIQUE: Imaging protocol: Computed tomography of the abdomen and pelvis with contrast. Radiation optimization: All CT scans at this facility use at least one of these dose optimization techniques: automated exposure control; mA and/or kV adjustment per patient size (includes targeted exams where dose is matched to clinical indication); or iterative reconstruction. Contrast material: ISOVUE; Contrast volume: 75 ml; Contrast route: IV; COMPARISON: CT ABDOMEN PELVIS W CON 03/12/2025 2:12 AM FINDINGS: Lungs: No acute finding. Liver: Hepatic steatosis is noted. Gallbladder and biliary ducts: The gallbladder is absent. There is no biliary ductal dilation. Pancreas: Normal. No ductal dilation. Spleen: Normal. No splenomegaly. Adrenal glands: Normal. No mass. Kidneys and ureters: No hydronephrosis. The previously noted left staghorn calculus has been removed. There is a residual 3.5 mm calculus within the lower pole collecting system of the left kidney. There is a tiny punctate 1-2 mm calculus in the lower pole collecting system of the right kidney. The ureters are unremarkable. Stomach and bowel: There are a few scattered left colon diverticula without acute inflammation. No bowel obstruction. No mucosal thickening. Appendix: No evidence of appendicitis. Intraperitoneal space: Unremarkable. No free air. No significant fluid collection. Vasculature: Unremarkable. No abdominal aortic aneurysm. Lymph nodes: Unremarkable. No enlarged lymph nodes. Urinary bladder: Unremarkable as visualized. Reproductive: The uterus is absent. Stable simple cyst within the right pelvis measuring approximately 8.3 x 11.7 x 10.5 cm. Persistent complex cystic structure left adnexa measuring approximately 3.4 x 5.9 x 4.8 cm. Bones/joints: There are mild degenerative changes of the spine. No acute fracture. Soft tissues: Unremarkable. IMPRESSION: 1. There is no acute process evident within the abdomen or pelvis. 2. Small solitary bilateral intrarenal calculi without hydronephrosis. 3. Persistent complex left adnexal cystic structure measuring 3.4 x 5.9 x 1.8 cm. Further evaluation with prompt non-emergent ultrasound or prompt non-emergent MRI is recommended to characterize. (Reference: Glynn) REFERENCES: Glynn et al. Management of Incidental Adnexal Findings on CT and MRI: A White Paper of the ACR Incidental Findings Committee, J Am Makenna Radiol. 2019;17(2):248-254.
[2025-06-12 23:46] VITALS: BP 135/77; PULSE 83; RESP 16; TEMP 37; O2SAT 97; BMI 47.8
--- NOTE | 2025-06-12 23:48 | HMH.EDGENADL ---
Discharge Plan Disposition Patient Disposition: Admitted Condition: Fair Prescriptions Prescriptions: No Action spironolactone [Aldactone] 50 mg tablet 50 mg PO DAILY Mounjaro 7.5 mg/0.5 mL pen injector 7.5 mg SQ WEEKLY Qty: 2 0RF (DME) OneTouch Verio test strips Strip See Rx Instructions .Route Qty: 200 5RF Rx Instructions: As directed omeprazole 20 mg capsule,delayed release(DR/EC) 20 mg PO DAILY glipizide 2.5 mg tablet 2.5 mg PO BID Qty: 60 2RF Linzess 290 mcg capsule 290 mcg PO DAILY Qty: 30 2RF nitroglycerin 0.4 mg tablet, sublingual 0.4 mg sublingual Q5-15M Patient Comments: DISSOLVE 1 TABLET UNDER THE TONGUE EVERY 5 MINUTES NEEDED FOR CHEST PAIN. DO NOT EXCEED A TOTAL OF 3 DOSES IN 15 MINUTES. IF NO RELIEF AFTER 3 DOSES CALL 911/GO TO ER cephalexin 500 mg capsule 500 mg PO TID 7 Days Qty: 21 0RF sennosides [senna] 8.6 mg tablet 8.6 mg PO BID PRN (Reason: constipation) Qty: 30 0RF oxycodone 5 mg tablet 5 mg PO Q8H PRN (Reason: pain) Qty: 60 0RF ibuprofen 800 mg tablet 800 mg PO TID PRN (Reason: Pain) Qty: 90 2RF Rx Instructions: TAKE ONE TABLET BY MOUTH THREE TIMES DAILY NEEDED WITH FOOD ascorbic acid (vitamin C) [Vitamin C] 500 mg tablet 500 mg PO BID Qty: 180 1RF Rx Instructions: TAKE ONE TABLET BY MOUTH TWICE DAILY Entresto 24-26 mg tablet 1 tab PO BID Qty: 180 1RF promethazine 12.5 mg tablet 12.5 mg PO Q8 PRN (Reason: Nausea) Qty: 20 1RF montelukast 10 mg tablet See Rx Instructions .ROUTE .COMPLEX Qty: 30 5RF Dose Instruction: TAKE ONE TABLET BY MOUTH EVERY DAY AT BEDTIME FOR ASTHMA Rx Instructions: TAKE ONE TABLET BY MOUTH EVERY DAY AT BEDTIME FOR ASTHMA Trelegy Ellipta 100-62.5-25 mcg blister with device See Rx Instructions .ROUTE .COMPLEX Qty: 60 2RF Dose Instruction: INHALE 1 PUFF BY MOUTH EVERY DAY - RINSE MOUTH AFTER USE - Rx Instructions: INHALE 1 PUFF BY MOUTH EVERY DAY - RINSE MOUTH AFTER USE - Mounjaro 5 mg/0.5 mL pen injector 5 mg SQ WEEKLY Qty: 2 0RF tramadol 50 mg tablet 50 mg PO Q6H PRN (Reason: pain) Qty: 120 0RF metformin 500 mg tablet See Rx Instructions .ROUTE .COMPLEX Qty: 180 1RF Dose Instruction: TAKE ONE TABLET BY MOUTH TWICE DAILY Rx Instructions: TAKE ONE TABLET BY MOUTH TWICE DAILY pravastatin 40 mg tablet 40 mg PO HS Qty: 90 1RF cholecalciferol (vitamin D3) 125 mcg (5,000 unit) capsule 5,000 unit PO Q48H ketorolac 10 mg tablet 10 mg PO Q6H PRN (Reason: pain) 5 Days Qty: 20 0RF bumetanide 2 mg tablet 2 mg PO DAILY calcium 500 mg Tablet 2,000 mg PO QID ondansetron HCl 4 mg Tablet 4 mg PO Q6H albuterol sulfate 90 mcg/actuation Hfa Aerosol Inhaler 2 puff INHALATION QID PRN (Reason: Breathing Problems) nebivolol 5 MG tablet 5 mg PO DAILY cetirizine [Zyrtec] 10 mg Tablet 10 mg PO DAILY Referrals Follow up/Referrals: Jaurez Griffin MD [Primary Care Provider, Medical] - See instructions Clinical Impressions Clinical Impression: UTI (urinary tract infection), Flank pain, Adnexal mass Instructions Patient Instructions: DI for Urinary Tract Infection (UTI), DI for Urinary Tract Infection in Children Print Language Print Language: Khmer Discharge ED Provider: Taiwo Ivy General Adult HPI General Chief complaint: Urogenital-Female Stated complaint: uti, vomiting Time Seen by Provider: 06/12/25 23:37 History of Present Illness HPI narrative: 50-year-old female relatively well-known to this ER recently for complicated urinary infections presents to the ER for concerns of urinary tract infection. Patient reports symptoms started in the last few days and have been progressively worsening. Patient took Azo yesterday, not today. She was seen by [facility] and was started on Keflex for concerns of UTI. Patient reports symptoms have continued to worsen, she she has been sweaty at home and was having difficulty focusing, becoming more weak. Patient and family are concerned that she is becoming septic again. On March 31 she had stone removed from her kidney by Dr. Ames at [facility], she is to follow-up with his PATIENT REGISTRAR in June. She had been 2 months free of UTI until this one. No other associated symptoms at this time. Related Data Home Medications ?Medication ?Instructions ?Recorded ?Confirmed nebivolol 5 mg tablet 5 mg PO DAILY 12/21/21 06/12/25 spironolactone 50 mg tablet 50 mg PO DAILY 03/30/22 06/12/25 (Aldactone) omeprazole 20 mg capsule,delayed 20 mg PO DAILY 04/24/22 06/12/25 release cetirizine 10 mg tablet (Zyrtec) 10 mg PO DAILY 02/06/24 06/12/25 cholecalciferol (vitamin D3) 125 5,000 unit PO Q48H 01/27/25 06/12/25 mcg (5,000 unit) capsule albuterol sulfate 90 mcg/actuation 2 puff inhalation QID PRN 03/12/25 06/12/25 aerosol inhaler Breathing Problems bumetanide 2 mg tablet 2 mg PO DAILY 03/12/25 06/12/25 calcium 500 mg tablet 2,000 mg PO QID 03/12/25 06/12/25 ondansetron HCl 4 mg tablet 4 mg PO Q6H 03/12/25 06/12/25 nitroglycerin 0.4 mg sublingual 0.4 mg sublingual Q5-15M 05/26/25 06/12/25 tablet Previous Rx's ?Medication ?Instructions ?Recorded sennosides 8.6 mg tablet (senna) 8.6 mg PO BID PRN constipation #30 02/03/25 tabs ketorolac 10 mg tablet 10 mg PO Q6H PRN pain 5 days #20 02/05/25 tabs oxycodone 5 mg tablet 5 mg PO Q8H PRN pain #60 tabs 02/19/25 ibuprofen 800 mg tablet 800 mg PO TID PRN Pain #90 tabs 02/26/25 glipizide 2.5 mg tablet 2.5 mg PO BID #60 tabs 03/17/25 linaclotide 290 mcg capsule 290 mcg PO DAILY For constipation 03/17/25 (Linzess) #30 caps ascorbic acid (vitamin C) 500 mg 500 mg PO BID #180 tabs 04/05/25 tablet (Vitamin C) sacubitril 24 mg-valsartan 26 mg 1 tab PO BID #180 tabs 04/05/25 tablet (Entresto) promethazine 12.5 mg tablet 12.5 mg PO Q8 PRN Nausea #20 tabs 04/20/25 fluticasone fur. 100 mcg-umeclid See Rx Instructions .Route 05/06/25 62.5 mcg-vilant 25 mcg .COMPLEX #60 blisters inhalat.powder (Trelegy Ellipta) montelukast 10 mg tablet See Rx Instructions .Route 05/06/25 .COMPLEX #30 tabs tirzepatide 5 mg/0.5 mL 5 mg (0.5 mL) SQ WEEKLY #2 mL 05/12/25 subcutaneous pen injector (Mounjaro) tramadol 50 mg tablet 50 mg PO Q6H PRN pain #120 tabs 05/12/25 blood sugar diagnostic (OneTouch #200 ea 05/19/25 Verio test strips) tirzepatide 7.5 mg/0.5 mL 7.5 mg (0.5 mL) SQ WEEKLY #2 mL 05/19/25 subcutaneous pen injector (Mounjaro) metformin 500 mg tablet See Rx Instructions .Route 05/28/25 .COMPLEX #180 tabs pravastatin 40 mg tablet 40 mg PO HS #90 tabs 06/02/25 cephalexin 500 mg capsule 500 mg PO TID 7 days #21 caps 06/12/25 Allergies Allergy/AdvReac Type Severity Reaction Status Date / Time aspirin Allergy Severe S-DIFF. Verified 06/12/25 14:47 BREATHING bee venom protein (honey bee) Allergy Severe Anaphylaxis Verified 06/12/25 14:47 Bleach (Sodium Hypochlorite) Allergy Severe diff. Verified 06/12/25 14:47 breathing, dizzy amoxicillin (From Augmentin) Allergy Mild Unknown Verified 06/12/25 14:47 allergy reaction clavulanic acid (From Allergy Mild Unknown Verified 06/12/25 14:47 Augmentin) allergy reaction fluconazole (From Diflucan) Allergy Mild Unknown Verified 06/12/25 14:47 allergy reaction levofloxacin (From Levaquin) Allergy Difficulty Verified 06/12/25 14:47 Breathing pneumococcal vaccine Allergy Unknown Verified 06/12/25 14:47 allergy reaction sulfamethoxazole (From Allergy Unknown Verified 06/12/25 14:47 Bactrim) allergy reaction trimethoprim (From Bactrim) Allergy Unknown Verified 06/12/25 14:47 allergy reaction sucralose (From SUCRALOSE AdvReac Severe breathing Verified 06/12/25 14:47 (FOOD/DRUG)) problems [facility] Disclaimer: The information contained in this section may have been updated after the patient was seen, as this information can be updated by other users. Medical History PIC line (peripherally inserted central catheter) removal Right nephrolithiasis UTI (urinary tract infection) Ovarian cyst Hematuria Vaginal pruritus History of nephrolithotomy with removal of calculi Hyperparathyroidism Status post removal of parathyroid adenoma Multiple thyroid nodules Asthma with exacerbation Syncopal episodes POSSIBLY DUE TO POTS Right flank pain Adnexal mass Septic shock Severe sepsis with acute organ dysfunction Cellulitis of right wrist Pneumonia Syncope Altered mental status Surgical History History of cardiac catheterization x2 History of loop recorder History of eye surgery History of cholecystectomy S/P right oophorectomy S/P hysterectomy History of tubal ligation Family History Other Alzheimer disease Bipolar 1 disorder Dementia Family history of diabetes mellitus type II Family history of myocardial infarction Lung cancer Lupus Social History Smoking Status: Never smoker second hand exposure: No alcohol intake: never substance use type: denies use current occupational status: unemployed and disabled Travel in the last 8 weeks?: None household members: spouse housing: house current occupational exposures/hazards: No caffeine: Yes Have you lived/traveled outside [place] in past 30 days?: No Contact w/someone who lives/traveled outside [place] past 30 days?: No Exposure to someone with infectious disease in past 14 days?: No Do you have a fever (greater than 100.4 F or 38 C)?: No Have you tested positive for COVID-19?: No Exposed to someone with COVID-19 in past 14 days?: No Do you have a sore throat?: No Do you have a cough?: No Do you have any weakness?: No Do you have any diarrhea?: No Are you experiencing any unusual bleeding?: No Do you have any muscle aches/pain?: No Do you have any abdominal pain?: No Are you experiencing loss of taste or smell?: No Other Medical History Have you received the Flu Vaccine for this season: No Have you received the Pneumonia Vaccine: Yes ROS Obtained: Yes Systems reviewed as appropriate & no additional complaints except as documented Per HPI Physical Exam General General appearance: alert and obese Comment: Ill-appearing, diaphoretic Head Head exam: atraumatic and normocephalic Eye Eye exam: Present PERRL and EOMI ENT ENT exam: Present mucous membranes moist Neck Neck exam: Present normal inspection and full ROM Chest Chest inspection: Present symmetric chest wall rise Respiratory Respiratory exam: Present normal lung sounds bilaterally; Absent respiratory distress, wheezes or stridor Cardiovascular Cardiovascular exam: Present regular rate and normal rhythm Abdominal Exam Abdominal exam: Present soft; Absent distention or tenderness Extremities Exam Extremities exam: Present full ROM Back Exam Back exam: Present CVA tenderness (R) and CVA tenderness (L) Neurological Exam Neurological exam: Present alert and oriented X3; Absent motor sensory deficit Psychiatric Psychiatric exam: Present normal affect and normal mood Skin Skin exam: Present warm and dry Medical Decision Making Medical Records Medical records reviewed: Yes I reviewed the patient's medical records. Screening: Per USPSTF and CDC recommendations, given the prevalence of disease in our region, it is our hospital?s policy to screen for HIV and viral Hepatitis for all patients aged 18 and over and those with ongoing risk factors. MR Comment: Most recent urine cultures positive for Proteus and Citrobacter, multiple resistance Harjinder Inquiry Pt receiving controlled substance: No Vital Signs: 06/12/25 23:46 06/13/25 00:01 Temperature 98.6 F Temperature Source Oral Pulse Rate 87 Pulse Rate [Right] 83 Respiratory Rate 16 Blood Pressure 115/71 Blood Pressure [Right Arm] 135/77 Blood Pressure Mean [Right Arm] 96 02 Sat by Pulse Oximetry 97 95 Oxygen Delivery Method Room Air Lab Data Lab Results 06/12/25 23:45: Urine Color Yellow, Urine Appearance Clear, Urine pH 6.0, Ur Specific [place] 1.020, Urine Protein Trace, Urine Glucose (UA) Negative, Urine Ketones Negative, Urine Blood 2+ A, Urine Nitrate Positive A, Urine Bilirubin Negative, Urine Urobilinogen 4.0, Ur Leukocyte Esterase Negative, Urine RBC 3-5, Urine WBC 5-10, Ur Squamous Epith Cells 10-20, Urine Bacteria Trace 06/13/25 00:02: WBC 13.3 H, RBC 4.89, Hgb 14.3, Hct 42.2, MCV 86.3, MCH 29.2, MCHC 33.9, RDW 12.9, Plt Count 335, MPV 10.0, Neut % (Auto) 64.9, Lymph % (Auto) 26.6, [place] % (Auto) 6.3, Eos % (Auto) 1.5, Baso % (Auto) 0.4, Neut # (Auto) 8.6 H, Lymph # (Auto) 3.5, [place] # (Auto) 0.8, Eos # (Auto) 0.2, Baso # (Auto) 0.1, Sodium 137, Potassium 3.4 L, Chloride 101, Carbon Dioxide 24, Anion Gap 15.4 H, BUN 17, Creatinine 0.90, Estimated Creat Clear 60, Estimated GFR 66, Est GFR ( Amer) 80, Glucose 123 H, Lactate 1.6, Calcium 9.2, Total Bilirubin 0.4, AST 35, ALT 46, Alkaline Phosphatase 89, Total Protein 7.7, Albumin 4.5, Globulin 3.2, Albumin/Globulin Ratio 1.4, Plasma/Serum Alcohol < 10 06/13/25 01:34: VBG pH 7.38, VBG pCO2 41.3, VBG pO2 52.2 H, VBG HCO3 23.6, VBG Total CO2 24.9, VBG O2 Saturation 83.7 H, VBG Base Excess -1.6, VBG Lactic Acid 1.5 06/13/25 00:02 06/13/25 00:02 Orders (Tests/Meds): ED MEDICATIONS Discontinued Medications Generic Name Dose Route Start Last Admin Trade Name Freq PRN Reason Stop Dose Admin Acetaminophen 1,000 mg 06/12/25 23:45 06/13/25 00:20 Acetaminophen 1,000mg/100ml Vial IV 06/12/25 23:46 1,000 mg ONCE ONE Administration Hydromorphone HCl 0.5 mg 06/12/25 23:45 06/13/25 00:19 Hydromorphone 2mg/Ml Syringe IV 06/12/25 23:46 0.5 mg ONCE ONE Administration Lactated Ringer's 1,000 mls @ 999 mls/hr 06/12/25 23:45 06/13/25 00:19 Lactated Ringer's 1000 Ml Bag IV 06/13/25 00:45 999 mls/hr .Q1H1M ONE Administration Ertapenem 1 gm/ Sodium 50 mls @ 100 mls/hr 06/13/25 01:39 06/13/25 01:52 Chloride IV 06/13/25 01:40 100 mls/hr ONCE ONE Administration Iopamidol 75 ml 06/13/25 00:59 06/13/25 01:00 Iopamidol-370 (76%);100ml Bottle IV 06/13/25 01:00 75 ml ONCE ONE Administration Ondansetron HCl 4 mg 06/12/25 23:45 06/13/25 00:19 Ondansetron 4mg/2ml Vial IV 06/12/25 23:46 4 mg ONCE ONE Administration Sodium Chloride 10 ml 06/13/25 00:59 06/13/25 01:00 Sodium Chloride 0.9% 10ml Syr (Rad Only) IV 06/13/25 01:00 10 ml ONCE ONE Administration ORDERS Category Date Time Status CT abdomen pelvis w con Stat Cat Scan 06/12/25 23:45 Completed CBC w/Auto Diff [Complete Blood Count Auto Diff] Stat Lab 06/12/25 23:45 Completed CMP [Comprehensive Metabolic Panel] Stat Lab 06/12/25 23:45 Completed Ethanol [Ethyl Alcohol] Stat Lab 06/13/25 00:02 Completed Lactic Acid Stat Lab 06/12/25 23:45 Completed UDS [Drug Screen,Urine] Stat Lab 06/13/25 00:00 Received Urinalysis and Microscopic Stat Lab 06/12/25 23:45 Completed Blood Culture Stat Micro 06/13/25 00:12 Received VBG [Venous Blood Gas] Stat RT 06/13/25 01:34 Completed Medical Decision Narrative: In summary, this 50-year-old female with comorbidities including recurrent UTI, previous staghorn calculus that was recently removed, hypertension, COPD, CHF, diabetes, hyperlipidemia presents to the emergency department today with symptoms of UTI that are worsening despite being on antibiotics. On initial evaluation patient is hemodynamically stable, afebrile, patient is diaphoretic and ill-appearing on arrival, abdominal exam is relatively benign but patient does have bilateral CVA tenderness, she is oriented though states she is having difficulty focusing. Differential diagnosis includes but is not limited to urinary tract infection, pyelonephritis, patient recently had staghorn calculus removed so hopefully she does not have a new stone though this is a possibility as well, also considered bacteremia, sepsis, endorgan damage, among others. Based on these concerns, I ordered serum labs, CT imaging, urine studies. Patient received IV fluids, IV acetaminophen, Dilaudid, Zofran initially for treatment. I reviewed records which demonstrate patient was started on cephalexin earlier today but according to most recent urine cultures this will likely not be effective. Patient has multidrug-resistant organisms in her urine recently in the last few months. Labs personally reviewed demonstrate mild leukocytosis WBC 13.3, no anemia, normal platelets, CMP nonactionable, good kidney function, lactic 1.6 which is reassuring against acute endorgan dysfunction, UA is nitrate positive though patient has recently been on Azo, she also has 2+ blood with only few WBCs and trace bacteria, contaminated with squamous cells. Normally I would not be quick to treat this UA, however patient did appear profoundly ill when she presented to the ER and has a history of having urinary infections without UA showing overt signs of infection. For example her UA in March and only demonstrated 10-20 WBCs but urine culture grew multidrug-resistant Citrobacter. Because of this and patient's symptoms as well as her ill appearance on arrival I going to be treating her with antibiotics. Unfortunately with her previous urine cultures I do not believe Keflex is going to be an adequate antibiotic for her. I discussed this case with [facility] on-call pharmacist Giuliana, we reviewed the urine cultures and after reviewing these she does recommend ertapenem until patient's urine cultures and blood cultures clear. I appreciate her recommendations. Ertapenem ordered. She does not meet sepsis criteria. She only received 1 L of IV fluids because I do not want to fluid overload her given her history of CHF. CT abdomen pelvis personally interpreted does not demonstrate perinephric abscess or other acute intra-abdominal pathology, large right sided low abdomen/pelvic cyst appears relatively unchanged from previous. See radiology read for final interpretation. CT abdomen pelvis also comments on complex left adnexal cyst which can be followed up outpatient. Small bilateral intrarenal calculi. I discussed this case with the hospitalist including recommendations from pharmacy of continuing ertapenem as well as patient's very ill-appearing presentation on arrival and history of complex urinary tract infections, bacteremia, etc. He graciously accepted the patient for admission to the hospital for continued antibiotics while blood and urine cultures are pending. Patient admitted in stable condition. Critical Care Critical Care Time Critical Care Time: No
[2025-06-12 23:51] LABS: Microscopic, Urine URINE MICROSCOPIC (MICROSCOPIC)
[2025-06-13 00:01] VITALS: BP 115/71; PULSE 87; O2SAT 95
[2025-06-13 00:05] LABS: Bilirubin,Urine Negative (Negative); Color,Urine YELLOW (Yellow); Glucose,Urine (UA) Negative (Negative); Ketones,Urine Negative (Negative); Leukocyte Esterase,Urine Negative (Negative); PH,Urine 6.0 (5.0-8.5); Protein,Urine TRACE (Negative); Specific Gravity, Urine 1.020 (1.005-1.030); Urobilinogen,Urine 4.0 EU/dl (0.2)
[2025-06-13 00:19] LABS: Hematocrit 42.2 % (37.0-47.0); Hemoglobin 14.3 g/dL (12.2-16.2); Immature Granulocytes % 0.3 %; Mean Corpuscular HGB Conc 33.9 g/dL (31.8-35.4); Mean Corpuscular Hemoglobin 29.2 pg (27.0-31.2); Mean Corpuscular Volume 86.3 fl (81-99); Nucleated Red Blood Cells % 0 %; Platelet Count 335 K/mm3 (142-424); Red Blood Count 4.89 M/mm3 (4.20-5.40); Red Cell Distribution Width-SD 40.6 fL; White Blood Count 13.3 K/mm3 (4.8-10.8)
[2025-06-13] MEDS: LACTATED RINGERS 1000ML 1,000 ML 999 ML IV (00:19)
[2025-06-13] MEDS: HYDROMORPHONE 2MG/ML SYRINGE 0.5 MG IV (00:19)
[2025-06-13] MEDS: ONDANSETRON 4MG/2ML VIAL 4 MG IV ×2 (00:19→09:16)
[2025-06-13] MEDS: ACETAMINOPHEN 1,000MG/100ML VIAL 1000 MG IV (00:20)
[2025-06-13 00:29] LABS: Alanine Aminotransferase 46 U/L (12-78); Albumin Level 4.5 g/dl (3.5-5.0); Albumin/Globulin Ratio 1.4 (1.1-1.8); Alkaline Phosphatase 89 U/L (38-126); Anion Gap 15.4 mEq/L (5-15); Aspartate Amino Transferase 35 U/L (14-36); Bilirubin,Total 0.4 mg/dl (0.2-1.3); Blood Urea Nitrogen 17 mg/dl (7-17); Calcium 9.2 mg/dl (8.4-10.2); Carbon Dioxide 24 mmol/L (22.0-30.0); Chloride 101 mmol/L (98-107); Creatinine Clearance Estimated 60 mL/min (50-200); Creatinine,Serum 0.90 mg/dl (0.52-1.04); Estimated Glomerular Filt Rate 66 ml/min (>60); GFR (African American) 80 ML/MIN (>60); Globulin 3.2 g/dL (1.3-3.2); Glucose 123 mg/dl (74-100); Potassium 3.4 mmoL/L (3.5-5.1); Sodium 137 mmol/L (136-145); Total Protein,Serum 7.7 g/dl (6.3-8.2)
[2025-06-13 00:35] LABS: Bacteria,Urine Trace /lpf
--- NOTE | 2025-06-13 00:44 | PC.NURSE ---
PT transported to radiology via stretcher by radiology staff.
[2025-06-13] MEDS: SODIUM CHLORIDE 0.9% 10ML SYR (RAD ONLY) 10 ML IV (01:00)
[2025-06-13] MEDS: IOPAMIDOL-370 (76%);100ML BOTTLE 75 ML IV (01:00)
--- NOTE | 2025-06-13 01:40 | PC.NURSE ---
VBG drawn and sent to lab, resp contacted and made aware
[2025-06-13 01:46] LABS: Lactate Venous 1.5 mmol/L (0.4-2.0); VBG HCO3 23.6 mmol/L (23-30); VBG PCO2 41.3 mmol/L (35-51); VBG PH 7.38 mmol/L (7.31-7.41); VBG PO2 52.2 mmol/L (28-40)
[2025-06-13] MEDS: ERTAPENEM SODIUM 1 GM in 0.9 % SODIUM CHLORIDE 50 ML IV ×2 (01:52→20:23)
[2025-06-13 02:50] LABS: Amphetamine/Metha Screen,Urine Negative ng/ml (<1000)
[2025-06-13 02:51] LABS: Barbiturates Screen,Urine Negative ng/ml (<200)
[2025-06-13 02:52] LABS: Benzodiazepines Screen,Urine Negative ng/ml (<200)
--- NOTE | 2025-06-13 02:54 | PC.NURSE ---
Report given to FREDY Lopez
[2025-06-13 02:55] LABS: Methadone Screen,Urine Negative ng/ml (<300); Opiate Screen,Urine Negative ng/ml (<300)
--- NOTE | 2025-06-13 02:55 | EXP.HP ---
History of Present Illness *Admission Date: 06/13/25 *Reason for visit:: Nausea *History of present illness: This is a 50-year-old female that presents to [facility] emergency department for evaluation of a UTI. No family is at bedside and I am accompanied by her nurse Jessica for her evaluation. She describes several days of dysuria, nausea and general malaise. She presented to an urgent treatment center and was prescribed an oral antibiotic with no improvement. She presented to [facility] ED for evaluation. The patient identifies some confusion through the day, chills, nausea, vomiting and ongoing dysuria. She reports intermittent gross hematuria. She has identified no syncopal episodes, falls or diarrhea. She reports decreased p.o. intake. In the ED her complicated history of MDR urinary tract infections was noted. Her urinalysis was abnormal and her CBC identified a leukocytosis. ED provider contacted pharmacist/antibiotic stewardship program for recommendations on previous urine cultures. She received IV fluid resuscitation, IV antibiotic therapy with identified improvement. Hospital medicine was contacted for admission for complicated recurrent UTI and IV Invanz. [facility] Medical History (Updated 06/13/25 @ 04:09 by Milton Carlos MD) OTTONIEL and COPD overlap syndrome Rheumatoid arthritis Polycystic disease, ovary Type 2 diabetes mellitus without complications Hyperparathyroidism Multiple thyroid nodules Recurrent urinary tract infection Bilateral nephrolithiasis BMI 45.0-49.9, adult Adnexal mass Ovarian cyst Diastolic CHF with preserved left ventricular function, NYHA class 2 Surgical History (Updated 06/13/25 @ 03:26 by Milton Carlos MD) History of cardiac catheterization History of loop recorder History of eye surgery History of nephrolithotomy with removal of calculi History of cholecystectomy S/P right oophorectomy S/P hysterectomy History of tubal ligation Family History Other Alzheimer disease Bipolar 1 disorder Dementia Family history of diabetes mellitus type II Family history of myocardial infarction Lung cancer Lupus Social History (Updated 06/13/25 @ 03:49 by Jessica Sanches RN) Smoking Status: Never smoker second hand exposure: No alcohol intake: never substance use type: denies use current occupational status: unemployed and disabled Travel in the last 8 weeks?: None household members: spouse housing: house current occupational exposures/hazards: No caffeine: Yes Have you lived/traveled outside US in past 30 days?: No Contact w/someone who lives/traveled outside US past 30 days?: No Exposure to someone with infectious disease in past 14 days?: No Do you have a fever (greater than 100.4 F or 38 C)?: No Have you tested positive for COVID-19?: No Exposed to someone with COVID-19 in past 14 days?: No Do you have a sore throat?: No Do you have a cough?: No Do you have any weakness?: No Are you experiencing any nausea/vomitting?: No Do you have any diarrhea?: No Are you experiencing any unusual bleeding?: No Do you have any muscle aches/pain?: No Do you have any abdominal pain?: No Are you experiencing loss of taste or smell?: No Other Medical History Have you received the Flu Vaccine for this season: No Have you received the Pneumonia Vaccine: Yes Review of Systems Review of Systems Review of systems:: pertinent systems reviewed and negative unless documented below Meds Home Medications and Allergies Home Medications ?Medication ?Instructions ?Recorded ?Confirmed ?Type nebivolol 5 mg tablet 5 mg PO DAILY 12/21/21 06/13/25 History spironolactone 50 mg tablet 50 mg PO DAILY 03/30/22 06/13/25 History (Aldactone) omeprazole 20 mg capsule,delayed 20 mg PO DAILY 04/24/22 06/13/25 History release cetirizine 10 mg tablet (Zyrtec) 10 mg PO DAILY 02/06/24 06/13/25 History cholecalciferol (vitamin D3) 125 5,000 unit PO Q48H 01/27/25 06/13/25 History mcg (5,000 unit) capsule ibuprofen 800 mg tablet 800 mg PO TID PRN Pain #90 tabs 02/26/25 06/13/25 Rx albuterol sulfate 90 mcg/actuation 2 puff inhalation QID PRN 03/12/25 06/13/25 History aerosol inhaler Breathing Problems bumetanide 2 mg tablet 2 mg PO DAILY 03/12/25 06/13/25 History ondansetron HCl 4 mg tablet 4 mg PO Q6H 03/12/25 06/13/25 History linaclotide 290 mcg capsule 290 mcg PO DAILY For constipation 03/17/25 06/13/25 Rx (Linzess) #30 caps ascorbic acid (vitamin C) 500 mg 500 mg PO BID #180 tabs 04/05/25 06/13/25 Rx tablet (Vitamin C) promethazine 12.5 mg tablet 12.5 mg PO Q8 PRN Nausea #20 tabs 04/20/25 06/13/25 Rx tramadol 50 mg tablet 50 mg PO Q6H PRN pain #120 tabs 05/12/25 06/13/25 Rx blood sugar diagnostic (OneTouch #200 ea 05/19/25 06/13/25 Rx Verio test strips) tirzepatide 7.5 mg/0.5 mL 7.5 mg (0.5 mL) SQ WEEKLY #2 mL 05/19/25 06/13/25 Rx subcutaneous pen injector (Fadi) nitroglycerin 0.4 mg sublingual 0.4 mg sublingual Q5-15M 05/26/25 06/13/25 History tablet pravastatin 40 mg tablet 40 mg PO HS #90 tabs 06/02/25 06/13/25 Rx fluticasone fur. 100 mcg-umeclid 1 inh inhalation DAILY 06/13/25 06/13/25 History 62.5 mcg-vilant 25 mcg inhalat.powder (Trelegy Ellipta) metformin 500 mg tablet 500 mg PO BID 06/13/25 06/13/25 History montelukast 10 mg tablet 10 mg PO DAILY 06/13/25 06/13/25 History sacubitril 24 mg-valsartan 26 mg 1 tab PO DAILY 06/13/25 06/13/25 History tablet (Entresto) New Prescriptions to Start Prescriptions: Allergies Allergy/AdvReac Type Severity Reaction Status Date / Time aspirin Allergy Severe S-DIFF. Verified 06/12/25 14:47 BREATHING bee venom protein (honey bee) Allergy Severe Anaphylaxis Verified 06/12/25 14:47 Bleach (Sodium Hypochlorite) Allergy Severe diff. Verified 06/12/25 14:47 breathing, dizzy amoxicillin (From Augmentin) Allergy Mild Unknown Verified 06/12/25 14:47 allergy reaction clavulanic acid (From Allergy Mild Unknown Verified 06/12/25 14:47 Augmentin) allergy reaction fluconazole (From Diflucan) Allergy Mild Unknown Verified 06/12/25 14:47 allergy reaction levofloxacin (From Levaquin) Allergy Difficulty Verified 06/12/25 14:47 Breathing pneumococcal vaccine Allergy Unknown Verified 06/12/25 14:47 allergy reaction sulfamethoxazole (From Allergy Unknown Verified 06/12/25 14:47 Bactrim) allergy reaction trimethoprim (From Bactrim) Allergy Unknown Verified 06/12/25 14:47 allergy reaction sucralose (From SUCRALOSE AdvReac Severe breathing Verified 06/12/25 14:47 (FOOD/DRUG)) problems Exam Data for Last 24 hours Vital signs and Labs for Last 24 Hours: Temp Pulse Resp BP Pulse Ox O2 Del Method 98.6 F 87 16 115/71 95 Room Air 06/12/25 23:46 06/13/25 00:01 06/12/25 23:46 06/13/25 00:01 06/13/25 00:01 06/12/25 23:46 Laboratory Results - last 24 hr 06/12/25 23:45: Urine Color Yellow, Urine Appearance Clear, Urine pH 6.0, Ur Specific [place] 1.020, Urine Protein Trace, Urine Glucose (UA) Negative, Urine Ketones Negative, Urine Blood 2+ A, Urine Nitrate Positive A, Urine Bilirubin Negative, Urine Urobilinogen 4.0, Ur Leukocyte Esterase Negative, Urine RBC 3-5, Urine WBC 5-10, Ur Squamous Epith Cells 10-20, Urine Bacteria Trace 06/13/25 00:00: Ur Amphetamines Screen Negative 06/13/25 00:02: WBC 13.3 H, RBC 4.89, Hgb 14.3, Hct 42.2, MCV 86.3, MCH 29.2, MCHC 33.9, RDW 12.9, Plt Count 335, MPV 10.0, Neut % (Auto) 64.9, Lymph % (Auto) 26.6, [place] % (Auto) 6.3, Eos % (Auto) 1.5, Baso % (Auto) 0.4, Neut # (Auto) 8.6 H, Lymph # (Auto) 3.5, [place] # (Auto) 0.8, Eos # (Auto) 0.2, Baso # (Auto) 0.1, Sodium 137, Potassium 3.4 L, Chloride 101, Carbon Dioxide 24, Anion Gap 15.4 H, BUN 17, Creatinine 0.90, Estimated Creat Clear 60, Estimated GFR 66, Est GFR ( Amer) 80, Glucose 123 H, Lactate 1.6, Calcium 9.2, Total Bilirubin 0.4, AST 35, ALT 46, Alkaline Phosphatase 89, Total Protein 7.7, Albumin 4.5, Globulin 3.2, Albumin/Globulin Ratio 1.4, Plasma/Serum Alcohol < 10 06/13/25 01:34: VBG pH 7.38, VBG pCO2 41.3, VBG pO2 52.2 H, VBG HCO3 23.6, VBG Total CO2 24.9, VBG O2 Saturation 83.7 H, VBG Base Excess -1.6, VBG Lactic Acid 1.5 I & O for Last 24 hours: Intake & Output 06/10/25 06/11/25 06/12/25 06/13/25 23:59 23:59 23:59 23:59 Weight 122.47 kg Constitutional Constitutional: no acute distress, morbidly obese and cooperative *Routine HEENT Exam Head: Present normocephalic Eye: Present EOMI and PERRL ENT: Present mucous membranes moist *Routine Neck Exam Neck: Present supple and trachea midline; Absent JVD *Routine Respiratory Exam Respiratory: Present rhonchi, normal respiratory effort and symmetric chest movement *Routine Cardiovascular Exam Cardiovascular: Present RRR, Normal S1 and Normal S2; Absent murmur *Routine Abdominal Exam Abdominal: Present soft, normoactive bowel sounds and obese; Absent tenderness *Routine Rectal Exam Rectal:: deferred *Routine Genitalia Exam Genitalia:: deferred *Routine Extremities Exam Extremities: Present edema and full ROM *Routine Skin Exam Skin: Present intact *Routine Neurological Exam Neurological: Present alert, oriented X3, moving all extremities, vision grossly intact, hearing grossly intact and normal speech; Absent sensory deficit or motor deficit Routine Psychiatric Exam Psychiatric: Present normal affect, normal thought process, cooperative, good insight and good judgment Assessment and Plan *Assessment and plan (1) Complicated urinary tract infection: Status: Acute Category: Medical Code(s): N39.0 - Urinary tract infection, site not specified (2) Recurrent UTI: Status: Chronic Category: Medical Code(s): N39.0 - Urinary tract infection, site not specified (3) Bilateral nephrolithiasis: Status: Acute Category: Medical Code(s): N20.0 - Calculus of kidney (4) Type 2 diabetes mellitus without complications: Status: Chronic Category: Medical Code(s): E11.9 - Type 2 diabetes mellitus without complications (5) Chronic diastolic (congestive) heart failure: Status: Chronic Category: Medical Code(s): I50.32 - Chronic diastolic (congestive) heart failure (6) OTTONIEL and COPD overlap syndrome: Status: Acute Category: Medical Code(s): G47.33 - Obstructive sleep apnea (adult) (pediatric); J44.9 - Chronic obstructive pulmonary disease, unspecified (7) Morbid obesity: Status: Chronic Category: Medical Code(s): E66.01 - Morbid (severe) obesity due to excess calories Plan This is a 50-year-old female with history of bilateral staghorn calculus with recent urological evaluation and procedure with stone removal (~3 months ago). She describes chronic and recurrent urinary tract infections with previously identified MDR. She reports previous evaluations by infectious disease intelligence consultant in [place]. Antibiotic stewardship program is recommending IV Invanz with previous urine cultures on record. Problems addressed as follows: Complicated urinary tract infection Recurrent UTI Bilateral nephrolithiasis ED urinalysis abnormal Urine culture pending Blood culture pending CT A/P with: 3.5 mm calculus left kidney, no hydronephrosis, 2 mm calculus right kidney Trending labs and inflammatory markers IV Invanz daily Antiemetic therapy Pain control Parentally administered controlled substance for comfort care Bowel regimen Diabetes Routine blood sugar monitoring Hemoglobin A1c pending Basal insulin therapy Sliding scale insulin therapy Consistent carbohydrate diet with appropriate calories Chronic HFpEF (stage C/NYHA II) Accurate I's and O's Routine weights Sodium and fluid restriction Loop diuretic therapy Beta-loi therapy Avoiding SGLT2 inhibitor therapy with UTIs ARNI therapy MAR therapy OTTONIEL/OHS/BMI 48 Pulse oximetry monitoring Oxygen therapy to maintain appropriate oxygen saturations NIPPV therapy Nightly oxygen Calorie appropriate diet Nutrition education Outpatient GLP-1 agonist noted The length of stay for this patient will be 2 midnights or greater due to above diagnoses.
[2025-06-13 02:56] LABS: Phencyclidine Screen,Urine Negative ng/ml (<25)
--- NOTE | 2025-06-13 03:20 | PC.NURSE ---
Patient arrived to floor via wheelchair from ED at 03:16.
[2025-06-13 03:21] VITALS: BP 137/71; PULSE 89; RESP 16; TEMP 36.9; O2SAT 96
[2025-06-13 04:00] VITALS: BP 108/78; PULSE 64; RESP 16; TEMP 36.9; O2SAT 97; BMI 37.8
[2025-06-13] MEDS: KETOROLAC 30MG/ML VIAL 15 MG IV ×3 (04:01→21:18)
[2025-06-13 06:53] LABS: POC Glucose,Bedside 110 (70-110)
[2025-06-13 07:06] LABS: Nucleated Red Blood Cells % 0 %
[2025-06-13 07:10] LABS: Chloride 102 mmol/L (98-107); Hematocrit 37.4 % (37.0-47.0); Immature Granulocytes % 0.2 %; Mean Corpuscular HGB Conc 34.0 g/dL (31.8-35.4); Mean Corpuscular Hemoglobin 29.6 pg (27.0-31.2); Mean Corpuscular Volume 87.2 fl (81-99); Platelet Count 271 K/mm3 (142-424); Potassium 3.4 mmoL/L (3.5-5.1); Red Blood Count 4.29 M/mm3 (4.20-5.40); Red Cell Distribution Width-SD 40.6 fL; Sodium 135 mmol/L (136-145); White Blood Count 10.7 K/mm3 (4.8-10.8)
[2025-06-13 07:11] LABS: Hemoglobin 12.7 g/dL (12.2-16.2)
[2025-06-13 07:13] LABS: Anion Gap 8.4 mEq/L (5-15); Blood Urea Nitrogen 18 mg/dl (7-17); Calcium 8.9 mg/dl (8.4-10.2); Carbon Dioxide 28 mmol/L (22.0-30.0); Creatinine Clearance Estimated 126 mL/min (50-200); Creatinine,Serum 0.80 mg/dl (0.52-1.04); Estimated Glomerular Filt Rate 75 ml/min (>60); GFR (African American) 91 ML/MIN (>60); Glucose 115 mg/dl (74-100); Magnesium 1.7 mg/dl (1.6-2.3)
[2025-06-13 07:27] LABS: Hemoglobin A1C 5.8 % (4.0-6.0)
[2025-06-13 08:00] VITALS: BP 103/63; PULSE 57; RESP 14; TEMP 36.6; O2SAT 99
--- NOTE | 2025-06-13 08:07 | HMH.PHAINT1 ---
Pharmacy Intervention Comments: MEDICATION RECONCILIATION COMPLETE USING EXTERNAL PHARMACY FILL HISTORY, RECENT MD OFFICE VISIT NOTE, AND EVELYN REPORT.
[2025-06-13] MEDS: TRAMADOL 50MG TABLET 50 MG PO (08:12)
[2025-06-13] MEDS: SACUBITRIL/VALSARTAN 24-26MG TABLET 1 EACH PO ×2 (09:06→20:23)
[2025-06-13] MEDS: SPIRONOLACTONE 25MG TABLET 50 MG PO (09:06)
[2025-06-13] MEDS: BUMETANIDE 1 MG TABLET 2 MG PO ×2 (09:06→16:03)
[2025-06-13] MEDS: POLYETHYLENE GLYCOL 3350 17 GM PACKET PO (09:07)
[2025-06-13] MEDS: FLUTICASONE/UMECLIDIN/VILANTER 100/62.5/25MCG INHALER 1 PUFF IH (09:24)
[2025-06-13 11:02] LABS: POC Glucose,Bedside 119 (70-110)
[2025-06-13] MEDS: HYDROCODONE/APAP 5/325 MG TABLET 1 TAB PO (14:47)
[2025-06-13 16:00] VITALS: BP 121/65; PULSE 60; RESP 18; TEMP 36.8; O2SAT 98
[2025-06-13 16:11] LABS: POC Glucose,Bedside 111 (70-110)
--- NOTE | 2025-06-13 16:45 | PC.NURSE ---
Pt is A&Ox4. Vital signs stable tolerating room air. Pt complains of abdominal/flank pain. Treated with PRN pain medications with relief. Pt assist x1 with wheelchair to the bathroom. Pt resting comfortably in bed with no further needs voiced at this time. Call light within reach.
[2025-06-13 20:00] VITALS: BP 110/68; PULSE 62; RESP 16; TEMP 36.6; O2SAT 94
[2025-06-13 20:20] LABS: POC Glucose,Bedside 103 (70-110)
[2025-06-13] MEDS: PANTOPRAZOLE 40MG TABLET 40 MG PO (20:23)
[2025-06-13] MEDS: PRAVASTATIN 40MG TAB 40 MG PO (20:43)
--- NOTE | 2025-06-14 03:38 | PC.NURSE ---
Pt A&O x4. Pt is on 2LNC, while sleeping. Pt VSS.Pt lung sounds diminished. Pt reported cramping w/ urination. Pt medicated for pain this shift. Pt received Invanz per DEC. Pt recieved long acting insulin, pt did not need short acting coverage. Pt not voicing any concerns at this time. Pt resting w/ call light in reach. POC ongoing.
[2025-06-14 04:00] VITALS: BP 104/61; PULSE 68; RESP 16; TEMP 36.7; O2SAT 94; BMI 48.4
[2025-06-14] MEDS: TRAMADOL 50MG TABLET 50 MG PO (05:02)
[2025-06-14 05:10] LABS: POC Glucose,Bedside 122 (70-110)
[2025-06-14 06:47] LABS: Hematocrit 38.1 % (37.0-47.0); Hemoglobin 12.8 g/dL (12.2-16.2); Immature Granulocytes % 0.2 %; Mean Corpuscular HGB Conc 33.6 g/dL (31.8-35.4); Mean Corpuscular Hemoglobin 29.4 pg (27.0-31.2); Mean Corpuscular Volume 87.6 fl (81-99); Nucleated Red Blood Cells % 0 %; Platelet Count 271 K/mm3 (142-424); Red Blood Count 4.35 M/mm3 (4.20-5.40); Red Cell Distribution Width-SD 41.6 fL; White Blood Count 9.6 K/mm3 (4.8-10.8)
[2025-06-14 06:55] LABS: Albumin Level 3.9 g/dl (3.5-5.0); Chloride 100 mmol/L (98-107); Potassium 3.4 mmoL/L (3.5-5.1); Sodium 138 mmol/L (136-145)
[2025-06-14 06:58] LABS: Alanine Aminotransferase 41 U/L (12-78); Albumin/Globulin Ratio 1.3 (1.1-1.8); Alkaline Phosphatase 78 U/L (38-126); Anion Gap 13.4 mEq/L (5-15); Aspartate Amino Transferase 34 U/L (14-36); Bilirubin,Total 0.3 mg/dl (0.2-1.3); Blood Urea Nitrogen 16 mg/dl (7-17); Carbon Dioxide 28 mmol/L (22.0-30.0); Creatinine Clearance Estimated 74 mL/min (50-200); Creatinine,Serum 0.70 mg/dl (0.52-1.04); Estimated Glomerular Filt Rate 88 ml/min (>60); GFR (African American) 106 ML/MIN (>60); Globulin 3.0 g/dL (1.3-3.2); Total Protein,Serum 6.9 g/dl (6.3-8.2)
[2025-06-14 06:59] LABS: Calcium 9.1 mg/dl (8.4-10.2); Glucose 122 mg/dl (74-100)
[2025-06-14] MEDS: FLUTICASONE/UMECLIDIN/VILANTER 100/62.5/25MCG INHALER 1 PUFF IH (07:02)
[2025-06-14 07:04] VITALS: O2SAT 93
[2025-06-14 08:00] VITALS: BP 120/74; PULSE 58; RESP 16; TEMP 36.4; O2SAT 92
[2025-06-14] MEDS: BUMETANIDE 1 MG TABLET 2 MG PO (08:10)
[2025-06-14] MEDS: SPIRONOLACTONE 25MG TABLET 50 MG PO (08:12)
[2025-06-14] MEDS: POLYETHYLENE GLYCOL 3350 17 GM PACKET PO (08:12)
[2025-06-14] MEDS: SACUBITRIL/VALSARTAN 24-26MG TABLET 1 EACH PO (08:12)
[2025-06-14] MEDS: KETOROLAC 30MG/ML VIAL 15 MG IV (10:17)
[2025-06-14] MEDS: POTASSIUM CHLORIDE 20MEQ TAB 40 MEQ PO (11:39)
[2025-06-14 11:40] LABS: POC Glucose,Bedside 121 (70-110)
--- NOTE | 2025-06-14 11:40 | EXP.DC.SUM ---
General Admission date:: 06/13/25 HPI HPI HPI: This is a 50-year-old female that presents to [facility] emergency department for evaluation of a UTI. No family is at bedside and I am accompanied by her nurse Jessica for her evaluation. She describes several days of dysuria, nausea and general malaise. She presented to an urgent treatment center and was prescribed an oral antibiotic with no improvement. She presented to [facility] ED for evaluation. The patient identifies some confusion through the day, chills, nausea, vomiting and ongoing dysuria. She reports intermittent gross hematuria. She has identified no syncopal episodes, falls or diarrhea. She reports decreased p.o. intake. In the ED her complicated history of MDR urinary tract infections was noted. Her urinalysis was abnormal and her CBC identified a leukocytosis. ED provider contacted pharmacist/antibiotic stewardship program for recommendations on previous urine cultures. She received IV fluid resuscitation, IV antibiotic therapy with identified improvement. Hospital medicine was contacted for admission for complicated recurrent UTI and IV Invanz. Hospital Course Hospital Course Hospital Course: Lissy Valdez is a 50-year-old female with a medical history significant for multidrug-resistant recurrent UTIs and kidney stones following with urology presents with dysuria, nausea/vomiting, weakness and admitted for the same. #UTI, recurrent #History of multidrug-resistant UTIs #Nausea/vomiting ? Has had recurrent multidrug-resistant UTIs, follow-up with urology. Previously discontinued from SGLTi and practices good hygiene, preventative measures. ? Urine cultures in the past year show multiple oral antibiotic resistance, consistently sensitive to ertapenem. Current urine culture pending. ? Clinically improved with IV ertapenem, tolerating p.o. intake. Feels much better. ? Given history, discharged with IM ertapenem 1 g for 5 more days. She will receive these in our outpatient infusion clinic daily. ? Patient will follow-up with urology within the next 2 weeks. #Bilateral nephrolithiasis ? CT A/P with: 3.5 mm calculus left kidney, no hydronephrosis, 2 mm calculus right kidney ?Follow-up with urology as above. #Type 2 diabetes #Obesity ?Hemoglobin A1c 5.8%. ? Continue home metformin 500 mg twice daily, Mounjaro 7.5 mg weekly. #Chronic HFpEF (stage C/NYHA II) ? Currently euvolemic. Continue home Bumex 2 mg twice daily, Entresto, spironolactone 80 mg. Exam Data for Last 24 hours Vital signs and Labs for Last 24 Hours: Temp Pulse Resp BP Pulse Ox O2 Del Method O2 Flow Rate 97.5 F L 58 L 16 120/74 92 L Room Air 2 06/14/25 08:00 06/14/25 08:00 06/14/25 08:00 06/14/25 08:00 06/14/25 08:00 06/14/25 11:05 06/14/25 06:38 Laboratory Results - last 24 hr 06/13/25 16:02: POC Glucose 111 H 06/13/25 20:12: POC Glucose 103 06/14/25 05:01: POC Glucose 122 H 06/14/25 06:30: WBC 9.6, RBC 4.35, Hgb 12.8, Hct 38.1, MCV 87.6, MCH 29.4, MCHC 33.6, RDW 13.0, Plt Count 271, MPV 9.9, Neut % (Auto) 70.9, Lymph % (Auto) 20.2, Limestone % (Auto) 5.8, Eos % (Auto) 2.4, Baso % (Auto) 0.5, Neut # (Auto) 6.8, Lymph # (Auto) 1.9, [place] # (Auto) 0.6, Eos # (Auto) 0.2, Baso # (Auto) 0.1, Sodium 138, Potassium 3.4 L, Chloride 100, Carbon Dioxide 28, Anion Gap 13.4, BUN 16, Creatinine 0.70, Estimated Creat Clear 74, Estimated GFR 88, Est GFR ( Amer) 106, Glucose 122 H, Calcium 9.1, Total Bilirubin 0.3, AST 34, ALT 41, Alkaline Phosphatase 78, Total Protein 6.9, Albumin 3.9 D, Globulin 3.0, Albumin/Globulin Ratio 1.3 I & O for Last 24 hours: Intake & Output 06/11/25 06/12/25 06/13/25 06/14/25 23:59 23:59 23:59 23:59 Intake Total 1780 / 1830 250 / 250 Output Total 1450 / 1450 600 / 600 Balance 330 / 380 -350 / -350 Weight 122.47 kg 96.887 kg 124.103 kg Microbiology Reports for the Last 24 Hours: Microbiology 06/13/25 00:12 Blood Blood Culture - Preliminary NO GROWTH AFTER 24 HOURS 06/13/25 00:02 Blood Blood Culture - Preliminary NO GROWTH AFTER 24 HOURS Constitutional Constitutional: no acute distress and obese *Routine HEENT Exam Head: Present normocephalic Eye: Present EOMI and PERRL ENT: Present mucous membranes moist *Routine Neck Exam Neck: Present supple; Absent lymphadenopathy *Routine Respiratory Exam Respiratory: Present CTA bilaterally *Routine Cardiovascular Exam Cardiovascular: Present RRR *Routine Abdominal Exam Abdominal: Present soft and normoactive bowel sounds; Absent tenderness *Routine Extremities Exam Extremities: Absent cyanosis, clubbing or edema *Routine Skin Exam Skin: Present warm; Absent rash *Routine Neurological Exam Neurological: Present alert and oriented X3 Results Data Completed and Pending Labs on day of discharge: Labs from last 24 hours 06/14/25 06/14/25 06/13/25 06:30 05:01 20:12 WBC 9.6 RBC 4.35 Hgb 12.8 Hct 38.1 MCV 87.6 MCH 29.4 MCHC 33.6 RDW 13.0 Plt Count 271 MPV 9.9 Neut % (Auto) 70.9 Lymph % (Auto) 20.2 Limestone % (Auto) 5.8 Eos % (Auto) 2.4 Baso % (Auto) 0.5 Neut # (Auto) 6.8 Lymph # (Auto) 1.9 Limestone # (Auto) 0.6 Eos # (Auto) 0.2 Baso # (Auto) 0.1 Sodium 138 Potassium 3.4 L Chloride 100 Carbon Dioxide 28 Anion Gap 13.4 BUN 16 Creatinine 0.70 Estimated Creat Clear 74 Estimated GFR 88 Est GFR ( Amer) 106 Glucose 122 H POC Glucose 122 H 103 Calcium 9.1 Total Bilirubin 0.3 AST 34 ALT 41 Alkaline Phosphatase 78 Total Protein 6.9 Albumin 3.9 D Globulin 3.0 Albumin/Globulin Ratio 1.3 06/13/25 16:02 WBC RBC Hgb Hct MCV MCH MCHC RDW Plt Count MPV Neut % (Auto) Lymph % (Auto) Limestone % (Auto) Eos % (Auto) Baso % (Auto) Neut # (Auto) Lymph # (Auto) Limestone # (Auto) Eos # (Auto) Baso # (Auto) Sodium Potassium Chloride Carbon Dioxide Anion Gap BUN Creatinine Estimated Creat Clear Estimated GFR Est GFR ( Amer) Glucose POC Glucose 111 H Calcium Total Bilirubin AST ALT Alkaline Phosphatase Total Protein Albumin Globulin Albumin/Globulin Ratio Preliminary micro results at discharge 06/13/25 00:12 Blood Culture - Preliminary Blood NO GROWTH AFTER 24 HOURS 06/13/25 00:02 Blood Culture - Preliminary Blood NO GROWTH AFTER 24 HOURS DS: Diagnosis Discharge Diagnosis (1) Complicated urinary tract infection: Status: Acute Code(s): N39.0 - Urinary tract infection, site not specified (2) Recurrent UTI: Status: Chronic Code(s): N39.0 - Urinary tract infection, site not specified (3) Bilateral nephrolithiasis: Status: Acute Code(s): N20.0 - Calculus of kidney (4) Type 2 diabetes mellitus without complications: Status: Chronic Code(s): E11.9 - Type 2 diabetes mellitus without complications (5) Chronic diastolic (congestive) heart failure: Status: Chronic Code(s): I50.32 - Chronic diastolic (congestive) heart failure (6) [place] and COPD overlap syndrome: Status: Acute Code(s): G47.33 - Obstructive sleep apnea (adult) (pediatric); J44.9 - Chronic obstructive pulmonary disease, unspecified (7) Morbid obesity: Status: Chronic Code(s): E66.01 - Morbid (severe) obesity due to excess calories Meds Home Medications and Allergies Home Medications ?Medication ?Instructions ?Recorded ?Confirmed ?Type nebivolol 5 mg tablet 5 mg PO DAILY 12/21/21 06/13/25 History spironolactone 50 mg tablet 50 mg PO DAILY 03/30/22 06/13/25 History (Aldactone) omeprazole 20 mg capsule,delayed 20 mg PO DAILY 04/24/22 06/13/25 History release cetirizine 10 mg tablet (Zyrtec) 10 mg PO DAILY 02/06/24 06/13/25 History cholecalciferol (vitamin D3) 125 5,000 unit PO Q48H 01/27/25 06/13/25 History mcg (5,000 unit) capsule albuterol sulfate 90 mcg/actuation 2 puff inhalation QIDP PRN 03/12/25 06/13/25 History aerosol inhaler Shortness Of Breath bumetanide 2 mg tablet 2 mg PO BIDL 03/12/25 06/13/25 History ondansetron HCl 4 mg tablet 4 mg PO Q6HP PRN Nausea And 03/12/25 06/13/25 History Vomiting tirzepatide 7.5 mg/0.5 mL 7.5 mg (0.5 mL) SQ WEEKLY #2 mL 05/19/25 06/13/25 Rx subcutaneous pen injector (Fadi) nitroglycerin 0.4 mg sublingual 0.4 mg sublingual Q5MINP PRN Chest 05/26/25 06/13/25 History tablet Pain pravastatin 40 mg tablet 40 mg PO HS #90 tabs 06/02/25 06/13/25 Rx fluticasone fur. 100 mcg-umeclid 1 inh inhalation DAILY 06/13/25 06/13/25 History 62.5 mcg-vilant 25 mcg inhalat.powder (Trelegy Ellipta) ibuprofen 800 mg tablet 800 mg PO TIDP PRN Mild Pain 06/13/25 06/13/25 History (Scale Score 1-4) linaclotide 290 mcg capsule 290 mcg PO DAILY 06/13/25 06/13/25 History (Linzess) metformin 500 mg tablet 500 mg PO BIDWMEAL 06/13/25 06/13/25 History montelukast 10 mg tablet 10 mg PO HS 06/13/25 06/13/25 History promethazine 12.5 mg tablet 12.5 mg PO Q8HP PRN Nausea 06/13/25 06/13/25 History sacubitril 24 mg-valsartan 26 mg 1 tab PO BID 06/13/25 06/13/25 History tablet (Entresto) tramadol 50 mg tablet 50 mg PO Q6HP PRN Moderate Pain 06/13/25 06/13/25 History (Scale Score 5-6) New Prescriptions to Start Prescriptions: Allergies Allergy/AdvReac Type Severity Reaction Status Date / Time aspirin Allergy Severe S-DIFF. Verified 06/12/25 14:47 BREATHING bee venom protein (honey bee) Allergy Severe Anaphylaxis Verified 06/12/25 14:47 Bleach (Sodium Hypochlorite) Allergy Severe diff. Verified 06/12/25 14:47 breathing, dizzy amoxicillin (From Augmentin) Allergy Mild Unknown Verified 06/12/25 14:47 allergy reaction clavulanic acid (From Allergy Mild Unknown Verified 06/12/25 14:47 Augmentin) allergy reaction fluconazole (From Diflucan) Allergy Mild Unknown Verified 06/12/25 14:47 allergy reaction levofloxacin (From Levaquin) Allergy Difficulty Verified 06/12/25 14:47 Breathing pneumococcal vaccine Allergy Unknown Verified 06/12/25 14:47 allergy reaction sulfamethoxazole (From Allergy Unknown Verified 06/12/25 14:47 Bactrim) allergy reaction trimethoprim (From Bactrim) Allergy Unknown Verified 06/12/25 14:47 allergy reaction sucralose (From SUCRALOSE AdvReac Severe breathing Verified 06/12/25 14:47 (FOOD/DRUG)) problems Discharge Plan Disposition Patient Disposition: Home, Self-Care Condition: Fair Follow up Plan Follow up with: Juarez Griffin MD [Primary Care Provider, Medical] - 06/21/25 10:45 am Prescriptions/Medication Reconciliation: Continued spironolactone [Aldactone] 50 mg tablet 50 mg PO DAILY Mounjaro 7.5 mg/0.5 mL pen injector 7.5 mg SQ WEEKLY Qty: 2 0RF omeprazole 20 mg capsule,delayed release(DR/EC) 20 mg PO DAILY nitroglycerin 0.4 mg tablet, sublingual 0.4 mg sublingual Q5MINP PRN (Reason: Chest Pain) Patient Comments: DISSOLVE 1 TABLET UNDER THE TONGUE EVERY 5 MINUTES NEEDED FOR CHEST PAIN. DO NOT EXCEED A TOTAL OF 3 DOSES IN 15 MINUTES. IF NO RELIEF AFTER 3 DOSES CALL 911/GO TO ER pravastatin 40 mg tablet 40 mg PO HS Qty: 90 1RF cholecalciferol (vitamin D3) 125 mcg (5,000 unit) capsule 5,000 unit PO Q48H bumetanide 2 mg tablet 2 mg PO BIDL ondansetron HCl 4 mg Tablet 4 mg PO Q6HP PRN (Reason: Nausea And Vomiting) albuterol sulfate 90 mcg/actuation Hfa Aerosol Inhaler 2 puff INHALATION QIDP PRN (Reason: Shortness Of Breath) nebivolol 5 MG tablet 5 mg PO DAILY cetirizine [Zyrtec] 10 mg Tablet 10 mg PO DAILY metformin 500 mg tablet 500 mg PO BIDWMEAL Rx Instructions: TAKE ONE TABLET BY MOUTH TWICE DAILY montelukast 10 mg tablet 10 mg PO HS Rx Instructions: TAKE ONE TABLET BY MOUTH EVERY DAY AT BEDTIME FOR ASTHMA sacubitril-valsartan [Entresto] 24-26 mg tablet 1 tab PO BID Trelegy Ellipta 100-62.5-25 mcg blister with device 1 inh inhalation DAILY Rx Instructions: INHALE 1 PUFF BY MOUTH EVERY DAY - RINSE MOUTH AFTER USE - ibuprofen 800 mg tablet 800 mg PO TIDP PRN (Reason: Mild Pain (Scale Score 1-4)) Rx Instructions: TAKE ONE TABLET BY MOUTH THREE TIMES DAILY NEEDED WITH FOOD promethazine 12.5 mg tablet 12.5 mg PO Q8HP PRN (Reason: Nausea) tramadol 50 mg tablet 50 mg PO Q6HP PRN (Reason: Moderate Pain (Scale Score 5-6)) Linzess 290 mcg capsule 290 mcg PO DAILY Discontinued ascorbic acid (vitamin C) [Vitamin C] 500 mg tablet 500 mg PO BID Qty: 180 1RF Rx Instructions: TAKE ONE TABLET BY MOUTH TWICE DAILY Problem Reconciliation Problems Reviewed?: Yes Patient Discharge Instructions Patient Instructions: DI for Urinary Tract Infection (UTI), Stop Light Infection Print Language: Indonesian Providers Primary Care Provider: Juarez Griffin Admit Provider: Alexys Matias Attending Provider: Alexys Matias
[2025-06-14] MEDS: ERTAPENEM SODIUM 1 GM in 0.9 % SODIUM CHLORIDE 50 ML IV (14:46)
--- NOTE | 2025-06-15 10:34 | SW/DCPLANNER ---
Spoke with patient on the phone. Patient stated that she is doing well. Patient stated that she is aware of her upcoming appointment. Patient stated that she was not prescribed any new medicine. Patient stated that she has no concerns or questions at this time. Dayron Brower
== END 2025-06-14 15:36 | disposition home or self-care (01) ==
LOC: ER 06-13 02:35 → 2ND 06-13 02:37
PROVIDERS: Family Medicine; Student in an Organized Health Care Education/Training Program; Admitting Provider Internal Medicine Adolescent Medicine; Emergency Provider Emergency Medicine; PCP Internal Medicine; Visit Provider Internal Medicine Adolescent Medicine
DX: N39.0 Urinary tract infection, site not specified (principal); N20.0 Calculus of kidney; E11.9 Type 2 diabetes mellitus without complications; I11.0 Hypertensive heart disease with heart failure; I50.32 Chronic diastolic (congestive) heart failure; J44.9 Chronic obstructive pulmonary disease, unspecified; M06.9 Rheumatoid arthritis, unspecified; E21.3 Hyperparathyroidism, unspecified; E66.01 Morbid (severe) obesity due to excess calories; G47.33 Obstructive sleep apnea (adult) (pediatric); Z68.42 Body mass index [BMI] 45.0-49.9, adult; Z88.6 Allergy status to analgesic agent; Z91.030 Bee allergy status; Z91.09 Other allergy status, other than to drugs and biological substances; Z88.1 Allergy status to other antibiotic agents; Z88.0 Allergy status to penicillin; Z88.3 Allergy status to other anti-infective agents; Z88.7 Allergy status to serum and vaccine; Z88.2 Allergy status to sulfonamides; Z91.02 Food additives allergy status; Z79.84 Long term (current) use of oral hypoglycemic drugs; Z79.899 Other long term (current) drug therapy; Z79.1 Long term (current) use of non-steroidal anti-inflammatories (NSAID); Z79.85 Long-term (current) use of injectable non-insulin antidiabetic drugs
CPT/HCPCS: 36415; 74177; 80048; 80053; 80307; 80320; 81001; 82803; 82962; 83036; 83605; 83735; 85025; 87040; 87086; 94640; 96374; 96375; 96376; 99283; G0378; J0131; J1171; J1335; J1650; J1885; J2405; J7120; Q9967

== ENCOUNTER 2025-06-15 14:59 | Outpatient (CLI) | payer OTHER, SELFPAY ==
--- OUTSIDE RECORDS SUMMARY | 2025-06-15 15:02 | XMS_ITS | Referral Summary ---
Author Organization [employer] ([place], [place], [place], [place]) Address [address] [place] [address] Care Team Providers Care Assembly Line Brazer Name Role Phone Juarez Griffin MD Primary Care Provider [phone] Allergies Active Allergy Reactions Criticality Noted Date [...] Do you speak a language other than Luxembourgish at [facility]? No 12/27/2023 Do you want help with [...] on file Medical Devices Implanted Type Area Spiral Weaver Device Identifier Shelf Expiration Date Model / Serial / Lot Loop Recorder LOOP RECORDER Left: Chest Insurance [facility] [place] [id number] [facility] Advance Directives For more information, please contact: [phone] * Full Code (Latest Code Status on File) Date Activated Date Inactivated Comments 12/27/2023 3:21 AM 12/30/2023 2:53 PM -Attempt Resus citation if person has no pulse and is not breathing. -If no pulse or not breathing attempt CPR/CODE. -Call Rapid Response if patient is in distress. Care Teams Assembly Line Brazer Relationship Specialty Start Date End Date Juarez Griffin MD [address] [place] [id number] PCP - General General Internal Medicine 12/30/23
--- OUTSIDE RECORDS SUMMARY | 2025-06-15 15:02 | XMS_ITS | Encounter Summary ---
Author Organization [facility] Address [address] [place] [address] Care Team Providers Care Inventory Transcriber Name Role Phone Juarez Griffin MD Primary Care Provider [phone] Karen Naqvi DO Unavailable [phone] Encounter Details Date Type Department Care Team ([facility] st Contact Info) Description 02/12/2024 Orders Only External Location [address] [place] [address] Gennaro Cuevas MD [facility] [address] [place] [address] Social History Tobacco Use Types Packs/Day Years [...] Comment:+ 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 Source: [facility]. This patient will require contact precautions indefinitely. 04/01/2024 documented as of this encounter Care Teams Inventory Transcriber Relationship Specialty Start Date End Date Juarez Griffin MD [address] [place] [address] PCP - General 03/10/21 Karen Naqvi DO [facility] [address] [place] [address] Referring Physician Obstetrics and Gynecology 09/23/24 documented as of this encounter
--- OUTSIDE RECORDS SUMMARY | 2025-06-15 15:02 | XMS_ITS | Clinical Summary ---
Author Organization [employer] ([place], [place], [place], [place]) Address [address] [place] [address] Care Team Providers Care Gripper Machine Operator Name Role Phone Juarez Griffin MD Primary Care Provider [phone] Allergies Active Allergy Reactions Criticality Noted Date [...] Do you speak a language other than Serbian at [facility]? No 12/27/2023 Do you want help with [...] Completed 10/30/2023, Medical Devices Implanted Type Area Aircraft Pneudraulics Repairer Device Identifier Shelf Expiration Date Model / Serial / Lot Loop Recorder LOOP RECORDER Left: Chest Insurance [employer] [facility] [place] Advance Directives For more information, please contact: [phone] * Full Code (Latest Code Status on File) Date Activated Date Inactivated Comments 12/27/2023 3:21 AM 12/30/2023 2:53 PM -Attempt Resus citation if person has no pulse and is not breathing. -If no pulse or not breathing attempt CPR/CODE. -Call Rapid Response if patient is in distress. Care Teams Gripper Machine Operator Relationship Specialty Start Date End Date Juarez Griffin MD [address] [place] [address] PCP - General General Internal Medicine 12/30/23
--- OUTSIDE RECORDS SUMMARY | 2025-06-15 15:02 | XMS_ITS | Clinical Summary ---
Author Organization [facility] Address [address] [place] [address] Care Team Providers Care Surgical Instrument Technician Name Role Phone Juarez Griffin MD Primary Care Provider [phone] Karen Naqvi DO Unavailable [phone] Allergies Active Allergy Reactions Criticality Noted Date [...] Comments Diabetes Father Wallace Heart disease Father [place] Hypertension Father Wallace Dementia Mother Marzena Hypertension Mother Marzena Cancer Mother's Brother Lino Heart disease Mother's Brother Lino Diabetes insipidus Other 1 Hypertension Other 2 Lupus Other 3 Cancer Paternal Grandfather Unknown Anesthesia problems Sister Marta Diabetes Sister Marta Heart disease Sister Marta Hypertension Sister Marta Relation Name Status Comments Father [place] Mother Marzena Mother's Brother Lino Other 1 [...] drink first t yue in the morning (EYE-TEST WORKER) to steady your nerves or to get [...] PPSV23) 11/01/2021 09/06/2021 [facility]-Breast Cancer Screening 2023 [id number] Vaccine (3 - season) 2024 10/07/2022, 08/21/2021 [...] this topic Medical Devices Implanted Type Area Sales Representative Groceries Device Identifier Shelf Expiration Date Model / Serial / Lot Stent Ureteral Double Pigtail Pos 6fr 24cm - [id number] - [id number] Implanted:Qty: 1 on 04/11/2024 by Harvey Macdonald MD at [facility] Stent Right: [id number] 01/02/2026 [id number] / [id number] / [id number] Loop Recorder-2016 Implanted:04/28 (Quantity not on file) [...] ORDERABLES Final Re sult [facility] [address] [place] [address] * Hepatitis C Antibody - ED (04/10/2024 6:11 PM EDT) Hepatitis C Antibody Negative Negative 04/10/2024 7:24 PM EDT [facility] Blood Venous blood specimen / Unknown Venipuncture / Unknown 04/10/2024 6:11 PM EDT 04/10/2024 6:26 PM EDT Susan Mcclure MD LAB BLOOD ORDERABLES Final Re sult Performing Organization Address City/[facility] de Phone Number [facility] [address] [place] [address] * (ABNORMAL) Hemoglobin A1c (04/10/2024 6:11 PM [...] Adults <6.0% Children and Adolescents <7.5% Source: [place] [employer]. Standards of medical care in diabetes,2017. Diabetes Care.2017:40 (suppl 1):S1-S135. HbA1c assay performed by an ion-exchange chromatography method that is certified traceable to the DCCT. Joselito Berrios MD LAB BLOOD ORDERABLES Final Re sult Performing Organization Address [facility] de Phone Number [facility] [address] [place] [address] from Last 3 Months or Most Recently Relevant to Health Maintenance Additional Health Concerns Infection Onset Date Last Indicated ESBL Comment:+ 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 Source: [facility]. This patient will require contact precautions indefinitely. 04/01/2024 Insurance [address] [id number] [facility] Advance Directives * Full Code (Latest Code Status on File) Date Activated Date Inactivated Comments 04/11/2024 10:12 AM 04/12/2024 3:22 PM Question Answer Comments Patient has decision-making capacity? Yes Care Teams Surgical Instrument Technician Relationship Specialty Start Date End Date Juarez Griffin MD [address] [facility] [address] [place] [address] PCP - General 03/10/21 Karen Naqvi DO [address] [facility] [address] [place] [address] Referring Physician Obstetrics and Gynecology 09/23/24
[2025-06-15 15:11] VITALS: BP 106/69; PULSE 92; RESP 18; TEMP 36.4; O2SAT 97
[2025-06-15] MEDS: ERTAPENEM SODIUM 1 GM VIAL IM (15:11)
== END 2025-06-15 15:24 | disposition home or self-care (01) ==
LOC: INF 15:00
PROVIDERS: PCP Internal Medicine; Visit Provider Student in an Organized Health Care Education/Training Program
DX: N39.0 Urinary tract infection, site not specified (principal)
CPT/HCPCS: 96372; J1335

== ENCOUNTER 2025-06-16 15:16 | Outpatient (CLI) | payer OTHER, SELFPAY ==
--- OUTSIDE RECORDS SUMMARY | 2025-05-03 13:30 | XMS_ITS | Encounter Summary ---
Author Organization [facility] Address [address] [place] [address] Care Team Providers Care Acquisition Manager Name Role Phone Juarez Griffin MD Primary Care Provider [phone] Reason for Visit * Reason Comments Edema Pt states she is her e today for follow up edema. She states her swelling has been doing pretty good. Hypertension Pt states she is her e today for follow up HTN. She does have chest pain and SOA but nothing out of the ordinary. Does have a few palpitations. Encounter Details Date Type Department Care Team (Latest Contact Info) Description 05/03/2025 1:30 PM EDT Office Visit [facility] C[facility] [address] [place] [address] Yaneth Ugarte MD [address] [place] [address] Hypercholesterolemia (Primary Dx); PVC (premature ventricular contraction); Precordial chest pain; Swelling of lower extremity Social History Tobacco Use Types Packs/Day Years Used Date Smoking Tobacco: Never Passive Smoke Exposure: Never Smokeless Tobacco: Never Tobacco Cessation:Counseling Given: Yes Alcohol Use Standard Drinks/Week Comments Not Currently 0 (1 standard drink = 0.6 oz pur e alcohol) Maybe 3 drinks annually [facility] Utilities Answer Date Recorded In the [...] and heating? Not hard at all 04/16/2024 [facility] - Occupational Stress [...] or training? Not on file Preferred Language Azerbaijani 02/25/2025 PHQ-2 Answer Date Recorded Retired PHQ-9: [...] Sign Reading Time Taken Comments Blood Pressure 110/78 05/03/2025 1:20 PM EDT Pulse 91 05/03/2025 1:20 PM EDT Temperature - - Respiratory Rate - - Oxygen Saturation 96% 05/03/2025 1:20 PM EDT Inhaled Oxygen Concentration - - Weight 126 kg (278 lb) 05/03/2025 1:20 PM EDT Height 160.7 cm (5' 3.25 ) 05/03/2025 1:20 PM ED T Body Mass Index 48.86 05/03/2025 1:20 PM EDT documented in this encounter Progress Notes * Yaneth Ugarte MD - 05/03/2025 1:30 PM EDTAssociated Order(s): ECG 12 Lead Post-Procedure Diagnose(s): Precordial chest pain Images from the original note were not included. [facility] Provider Note Date: 05/03/2025 Name: Lissy Valdez : 1975 PCP: Juarez Griffin MD Chief Complaint Patient presents with Edema Pt states she is here today for follow up edema. She states her swelling has been doing pretty good. Hypertension Pt states she is here today for follow up HTN. She does have chest pain and SOA but nothing out of the ordinary. Does have a few palpitations. Subjective History of Present Illness Lissy Valdez is a 50 year old female who presents in clinic today for scheduled six month follow upon edema. Continues to note bilateral LE edema with Lt > rt. States she continues to have occasional SOA which she attributes to the summer and her COPD. Has had some episodes of chest pain approximately two days ago. Symptoms were pressure in the MS region, pressure like with radiation into her back. States she was playing on her phone when symptoms occurred. Had associated diaphoresis. EKG obtaind and reviewed today. Since last seen, has had a parathyroidectomy on 03/04/25. Had surgical removal of left kidney stone on 03/31/25. 1. Chronic chest pain, suspect pericardial --coronary CTA -calcium score 0, no atherosclerosis. 01/01/2023 --Normal cardiac MRI--05/29/2023 Allergies Allergen Reactions Aspirin Anaphylaxis Bee Venom [...] no (steriods) Tolerated antibiotics: amoxicillin, augmentin, cephalexin Current Outpatient Medications: bumetanide (BUMEX) 2 MG tablet, TAKE ONE TABLET BY MOUTH TWICE DAILY (Patient taking differently: Take 1 tablet by mouth 2 (Two) Times a Day. usually takes once per day with 2nd dose PRN), Disp: 60 tablet, Rfl: 11 cetirizine (zyrTEC) 10 MG tablet, Take 1 tablet by mouth Daily., Disp: , Rfl: ibuprofen (ADVIL,MOTRIN) 800 MG tablet, Take 1 tablet by mouth Every 6 (Six) Hours As Needed for Moderate Pain., Disp: , Rfl: ipratropium-albuterol (DUO-NEB) 0.5-2.5 mg/3 ml nebulizer, As Needed., Disp: , Rfl: Linzess 290 MCG capsule capsule, Take 1 capsule by mouth Every Morning Before Breakfast. (Patient taking differently: Take 1 capsule by mouth Every Morning Before Breakfast. prn), Disp: , Rfl: metFORMIN (GLUCOPHAGE) 500 MG tablet, Take 1 tablet by mouth 2 (Two) Times a Day., Disp: , Rfl: montelukast (SINGULAIR) 10 MG tablet, Take 1 tablet by mouth Every Night., Disp: , Rfl: Mounjaro 2.5 MG/0.5ML solution auto-injector, Holding at this time, Disp: , Rfl: naloxone (NARCAN) 4 MG/0.1ML nasal spray, Call 911. Don't prime. [place] in 1 nostril for overdose. Repeat in 2-3 minutes in other nostril if no or minimal breathing/responsiveness., Disp: 2 each, Rfl:0 nebivolol (BYSTOLIC) 5 MG tablet, TAKE ONE TABLET BY MOUTH EVERY DAY (Patient taking differently: Every Night.), Disp: 90 tablet, Rfl: 5 nitroglycerin (NITROSTAT) 0.4 MG SL tablet, DISSOLVE 1 TABLET UNDER THE TONGUE EVERY 5 MINUTES NEEDED FOR CHEST PAIN. DO NOT EXCEED A TOTAL OF 3 DOSES IN 15 MINUTES. IF NO RELIEF AFTER 3 DOSES CALL 911/GO TO ER, Disp: , Rfl: O2 (OXYGEN), 2 L by Alternating Nares route Every Night., Disp: , Rfl: omeprazole (priLOSEC) 20 MG capsule, Take 1 capsule by mouth Daily., Disp: 30 capsule, Rfl: 6 ondansetron (ZOFRAN) 4 MG tablet, Take 1 tablet by mouth Every 8 (Eight) Hours As Needed., Disp: , Rfl: OneTouch Verio test strip, USE TO TEST BLOOD SUGAR ONCE DAILY DIRECTED, Disp: , Rfl: pravastatin (PRAVACHOL) 40 MG tablet, 10 mg., Disp: , Rfl: promethazine (PHENERGAN) 25 MG tablet, Take 1 tablet by mouth Every 6 (Six) Hours As Needed for Nausea or Vomiting., Disp: , Rfl: senna 8.6 MG tablet, TAKE ONE TABLET BY MOUTH TWICE DAILY NEEDED FOR CONSTIPATION, Disp: , Rfl: spironolactone (ALDACTONE) 50 MG tablet, Take 1 tablet by mouth Daily., Disp: 30 tablet, Rfl: 6 tiZANidine (ZANAFLEX) 4 MG tablet, Take 1 tablet by mouth As Needed., Disp: , Rfl: traMADol (ULTRAM) 50 MG tablet, TAKE ONE TABLET BY MOUTH EVERY 6 HOURS NEEDED FOR PAIN MAY CAUSEDROWSINESS, Disp: , Rfl: Trelegy Ellipta 100-62.5-25 MCG/ACT inhaler, Inhale 1 puff Daily., Disp: , Rfl: Ventolin HFA 108 (90 Base) MCG/ACT inhaler, INHALE TWO PUFFS BY MOUTH EVERY 4 TO 6 HOURS NEEDED,Disp: 18 g, Rfl: 6 vitamin C (ASCORBIC ACID) 500 MG tablet, Daily., Disp: , Rfl: vitamin D3 125 MCG (5000 UT) capsule capsule, Take 1 capsule by mouth Daily., Disp: 30 capsule, Rfl: 11 Past Medical History: Diagnosis Date Acid reflux Asthma Bronchitis frequently - last 01/2024 Chronic chest pain followed by Dr. Ugarte [facility] [place] 03/05/24 Chronic diastolic (congestive) heart failure cardiac [...] Last labs D was high Past Surgical History: Procedure Laterality Date CARDIAC CATHETERIZATION 11/2021 no stents CHOLECYSTECTOMY 2018 CYSTOSCOPY 2023 Results normal CYSTOSCOPY W/ LASER LITHOTRIPSY EYE SURGERY childhood - for lazy eye HYSTERECTOMY 2021 pt states was told blood pressure was low during surgery LAPAROSCOPIC TUBAL LIGATION OOPHORECTOMY PARATHYROIDECTOMY N/A 03/04/2025 Procedure: PARATHYROIDECTOMY; Surgeon: Zac Mckeon MD; Location: [facility]; Service: General; Laterality: N/A; PERCUTANEOUS NEPHROSTOLITHOTOMY Right 04/15/2024 Procedure: CYSTOSCOPY & BALLOON OCCLUSION CATHETER PLACEMENT, PRIMARY PERCUTANEOUS ACCESS, NEPHROSTOLITHOTOMY PERCUTANEOUS, WITH STENT EXCHANGE; Surgeon: Demarcus Ames MD; Location: [facility]; Service: Urology; Laterality: Right; PERCUTANEOUS NEPHROSTOLITHOTOMY Left 03/31/2025 Procedure: Percutaneous nephrolithotomy with stent placement left, cystoscopy; Surgeon: Demarcus Ames MD; Location: [facility]; Service: Urology; Laterality: Left; TUBAL ABDOMINAL LIGATION 1994 Family History Problem Relation Age of Onset Dementia Mother Lupus Mother Hypertension Mother Obesity Mother Heart attack Father X2 Diabetes type II Father Diabetes Father Hypertension Father Obesity Father Heart disease Father Atrial fibrillation Sister Fibroids Sister Liver disease Sister Kidney disease Sister Anemia Sister Cancer Sister Skin Hypertension Sister Obesity Sister Thyroid disease Sister Cancer Paternal Grandfather Heart disease Paternal Grandfather Cancer Maternal Uncle Obesity Maternal Aunt Obesity Maternal Uncle Heart disease Maternal Grandfather Social History Socioeconomic History Marital status: Number of children: 2 Tobacco Use Smoking status: Never Passive exposure: Never Smokeless tobacco: Never Vaping Use Vaping status: Never Used Substance and Sexual Activity Alcohol use: Not Currently Comment: Maybe 3 drinks annually Drug use: Never Sexual activity: Yes Partners: Male control/protection: Tubal ligation, Hysterectomy Objective Vital Signs: BP 110/78 (BP Location: Right arm, Patient Position: Sitting, Cuff Size: Large Adult) Pulse 91 Ht 160.7 cm (63.25 ) Wt 126 kg (278 lb) SpO2 96% BMI 48.86 kg/m?? Estimated body mass index is 48.86 kg/m?? as calculated from the following: Height as of this encounter: 160.7 cm (63.25 ). Weight as of this encounter: 126 kg (278 lb). Physical Exam Constitutional: Appearance: Normal appearance. She is well-developed. HENT: Head: Normocephalic and atraumatic. Eyes: General: No scleral icterus. Pupils: Pupils are equal, round, and reactive to light. Cardiovascular: Rate and Rhythm: Normal rate and regular rhythm. Heart sounds: Normal heart sounds. No murmur heard. Pulmonary: Breath sounds: Normal breath sounds. No wheezing or rhonchi. Musculoskeletal: Right lower leg: No edema. Left lower leg: No edema. Skin: Capillary Refill: Capillary refill takes less than 2 seconds. Coloration: Skin is not cyanotic. Nails: There is no clubbing. Neurological: Mental Status: She is alert and oriented to person, place, and time. Motor: No weakness. Gait: Gait normal. Psychiatric: Mood and Affect: Mood normal. Behavior: Behavior is cooperative. Thought Content: Thought content normal. ECG 12 Lead Date/Time: 05/03/2025 2:22 PM Performed by: Yaneth Ugarte MD Authorized by: Yaneth Ugarte MD Comparison: compared with previous ECG from 03/02/2025 Similar to previous ECG Rhythm: sinus rhythm Ectopy: unifocal PVCs Rate: normal Conduction: conduction normal ST Segments: ST segments normal T Waves: T waves normal QRS axis: normal Other: no other findings Clinical impression: non-specific ECG Assessment and Plan ASSESSMENTS AND ORDERS Diagnoses and all orders for this visit: 1. Hypercholesterolemia (Primary) - Comprehensive Metabolic Panel; Future - Magnesium; Future - TSH Rfx On Abnormal To Free T4; Future - Lipid Panel; Future 2. PVC (premature ventricular contraction) - Comprehensive Metabolic Panel; Future - Magnesium; Future - TSH Rfx On Abnormal To Free T4; Future - Lipid Panel; Future 3. Precordial chest pain Other orders - ECG 12 Lead Other orders ECG 12 Lead PLAN -chronic chest pain fairly stable, she wonders if it is possibly lung related too -PVCs new, check electrolytes -palpitations continue. Monitor fairly recently did not show arrhythmia -update thyroid for palptiations as well. Follow Up No follow-ups on file. Laura Ugarte MD Cardiology and Sleep [facility] 05/03/2025 Please note that this explicitly excludes time spent on other separate billable services such as performing procedures or test interpretation, when applicable. This note was created using dictation software which occasionally transcribes nonsensical phrases. Please contact the provider if any clarification is needed. documented in this encounter Plan of Treatment Upcoming Encounters Date Type Department Care Team (Late st Contact Info) Description 07/01/2025 1:00 PM EDT Appointment [facility] [address] [place] [address] 07/01/2025 2:00 PM EDT Appointment [facility] [address] [place] [address] 07/06/2025 1:00 PM EDT Office Visit [facility] [address] [id number] Teressa Finley, [employer] HR GENERALIST [address] [address] 11/01/2025 1:30 PM EST Office Visit [facility] [address] [address] Yaneth Ugarte MD [address] [place] [address] documented as of this encounter Procedures Procedure Name Priority Date/Time Associated Diagnosis Comments ECG 12-LEAD Routine 05/03/2025 2:22 PM EDT Precordial chest pain documented in this encounter Results * ECG 12-LEAD (05/03/2025 2:22 PM EDT) Narrative Karen Escalona MA - 05/03/2025 2:22 PM EDT Yaneth Ugarte MD 05/03/2025 2:34 PM ECG 12 Lead Date/Time: 05/03/2025 2:22 PM Performed by: Yaneth Ugarte MD Authorized by: Yaneth Ugarte MD Comparison: compared with previous ECG from 03/02/2025 Similar to previous ECG Rhythm: sinus rhythm Ectopy: unifocal PVCs Rate: normal Conduction: conduction normal ST Segments: ST segments normal T Waves: T waves normal QRS axis: normal Other: no other findings Clinical impression: non-specific ECG Procedure Note Yaneth Ugarte MD - 05/03/2025 1:30 PM EDT Images from the original note were not included. [facility] Provider Note Date: 05/03/2025 Name: Lissy Valdez : 1975 PCP: Juarez Griffin MD Chief Complaint Patient presents with Edema Pt states she is here today for follow up edema. She states her swellinghas been doing pretty good. Hypertension Pt states she is here today for follow up HTN. She does have chest painand SOA but nothing out of the ordinary. Does have a few palpitations. Subjective History of Present Illness Lissy Valdez is a 50 year old female who presents in clinic today forscheduled six month follow up on edema. Continues to note bilateral LEedema with Lt > rt. States she continues to have occasional SOA which sheattributes to the summer and her COPD. Has had some episodes of chestpain approximately two days ago. Symptoms were pressure in the MS region,pressure like with radiation into her back. States she was playing on herphone when symptoms occurred. Had associated diaphoresis. EKG obtaindand reviewed today. Since last seen, has had a parathyroidectomy on 03/04/25. Had surgicalremoval of left kidney stone on 03/31/25. 1. Chronic chest pain, suspect pericardial --coronary CTA -calcium score 0, no atherosclerosis. 01/01/2023 --Normal cardiac MRI--05/29/2023 Allergies Allergen Reactions Aspirin Anaphylaxis Bee Venom Anaphylaxis Levaquin [Levofloxacin] Swelling Pneumococcal Vaccine Anaphylaxis, Unknown - High Severity, Nausea Only,Rash, Swelling and Shortness Of Breath Rosuvastatin Anaphylaxis [...] no (steriods) Tolerated antibiotics: amoxicillin, augmentin, cephalexin Current Outpatient Medications: bumetanide (BUMEX) 2 MG tablet, TAKE ONE TABLET BY MOUTH TWICE DAILY(Patient taking differently: Take 1 tablet by mouth 2 (Two) Times a Day.usually takes once per day with 2nd dose PRN), Disp: 60 tablet, Rfl: 11 cetirizine (zyrTEC) 10 MG tablet, Take 1 tablet by mouth Daily., Disp: ,Rfl: ibuprofen (ADVIL,MOTRIN) 800 MG tablet, Take 1 tablet by mouth Every 6(Six) Hours As Needed for Moderate Pain., Disp: , Rfl: ipratropium-albuterol (DUO-NEB) 0.5-2.5 mg/3 ml nebulizer, As Needed.,Disp: , Rfl: Linzess 290 MCG capsule capsule, Take 1 capsule by mouth Every MorningBefore Breakfast. (Patient taking differently: Take 1 capsule by mouthEvery Morning Before Breakfast. prn), Disp: , Rfl: metFORMIN (GLUCOPHAGE) 500 MG tablet, Take 1 tablet by mouth 2 (Two)Times a Day., Disp: , Rfl: montelukast (SINGULAIR) 10 MG tablet, Take 1 tablet by mouth EveryNight., Disp: , Rfl: Mounjaro 2.5 MG/0.5ML solution auto-injector, Holding at this time,Disp: , Rfl: naloxone (NARCAN) 4 MG/0.1ML nasal spray, Call 911. Don't prime. Sprayin 1 nostril for overdose. Repeat in 2-3 minutes in other nostril if no orminimal breathing/responsiveness., Disp: 2 each, Rfl: 0 nebivolol (BYSTOLIC) 5 MG tablet, TAKE ONE TABLET BY MOUTH EVERY DAY(Patient taking differently: Every Night.), Disp: 90 tablet, Rfl: 5 nitroglycerin (NITROSTAT) 0.4 MG SL tablet, DISSOLVE 1 TABLET UNDER THETONGUE EVERY 5 MINUTES NEEDED FOR CHEST PAIN. DO NOT EXCEED A TOTAL OF3 DOSES IN 15 MINUTES. IF NO RELIEF AFTER 3 DOSES CALL 911/GO TO ER, Disp:, Rfl: O2 (OXYGEN), 2 L by Alternating Nares route Every Night., Disp: , Rfl: omeprazole (priLOSEC) 20 MG capsule, Take 1 capsule by mouth Daily.,Disp: 30 capsule, Rfl: 6 ondansetron (ZOFRAN) 4 MG tablet, Take 1 tablet by mouth Every 8 (Eight)Hours As Needed., Disp: , Rfl: OneTouch Verio test strip, USE TO TEST BLOOD SUGAR ONCE DAILY ASDIRECTED, Disp: , Rfl: pravastatin (PRAVACHOL) 40 MG tablet, 10 mg., Disp: , Rfl: promethazine (PHENERGAN) 25 MG tablet, Take 1 tablet by mouth Every 6(Six) Hours As Needed for Nausea or Vomiting., Disp: , Rfl: senna 8.6 MG tablet, TAKE ONE TABLET BY MOUTH TWICE DAILY NEEDED FORCONSTIPATION, Disp: , Rfl: spironolactone (ALDACTONE) 50 MG tablet, Take 1 tablet by mouth Daily.,Disp: 30 tablet, Rfl: 6 tiZANidine (ZANAFLEX) 4 MG tablet, Take 1 tablet by mouth As Needed.,Disp: , Rfl: traMADol (ULTRAM) 50 MG tablet, TAKE ONE TABLET BY MOUTH EVERY 6 HOURSAS NEEDED FOR PAIN MAY CAUSE DROWSINESS, Disp: , Rfl: Trelegy Ellipta 100-62.5-25 MCG/ACT inhaler, Inhale 1 puff Daily., Disp:, Rfl: Ventolin HFA 108 (90 Base) MCG/ACT inhaler, INHALE TWO PUFFS BY MOUTHEVERY 4 TO 6 HOURS NEEDED, Disp: 18 g, Rfl: 6 vitamin C (ASCORBIC ACID) 500 MG tablet, Daily., Disp: , Rfl: vitamin D3 125 MCG (5000 UT) capsule capsule, Take 1 capsule by mouthDaily., Disp: 30 capsule, Rfl: 11 Past Medical History: Diagnosis Date Acid reflux Asthma Bronchitis frequently - last 01/2024 Chronic chest pain followed by Dr. Ugarte -[facility] 03/05/24 Chronic diastolic (congestive) heart failure cardiac clearance by Dr. Ugarte - 03/05/24 Condition not found 1996 ACID INHALATION COPD (chronic obstructive pulmonary disease) followed by PCP Coronary artery disease 2018 Chf with pef, tach and arrhythmia Fibroid [...] Last labs D was high Past Surgical History: Procedure Laterality Date CARDIAC CATHETERIZATION 11/2021 no stents CHOLECYSTECTOMY 2019 CYSTOSCOPY 2023 Results normal CYSTOSCOPY W/ LASER LITHOTRIPSY EYE SURGERY childhood - for lazy eye HYSTERECTOMY 2021 pt states was told blood pressure was low during surgery LAPAROSCOPIC TUBAL LIGATION OOPHORECTOMY PARATHYROIDECTOMY N/A 03/04/2025 Procedure: PARATHYROIDECTOMY; Surgeon: Zac Mckeon MD;Location: [facility]; Service: General; Laterality: N/A; PERCUTANEOUS NEPHROSTOLITHOTOMY Right 04/15/2024 Procedure: CYSTOSCOPY & BALLOON OCCLUSION CATHETER PLACEMENT, PRIMARYPERCUTANEOUS ACCESS, NEPHROSTOLITHOTOMY PERCUTANEOUS, WITH STENT EXCHANGE;Surgeon: Demarcus Ames MD; Location: [facility]; Service:Urology; Laterality: Right; PERCUTANEOUS NEPHROSTOLITHOTOMY Left 03/31/2025 Procedure: Percutaneous nephrolithotomy with stent placement left,cystoscopy; Surgeon: Demarcus Ames MD; Location: [facility];Service: Urology; Laterality: Left; TUBAL ABDOMINAL LIGATION 1994 Family History Problem Relation Age of Onset Dementia Mother Lupus Mother Hypertension Mother Obesity Mother Heart attack Father X2 Diabetes type II Father Diabetes Father Hypertension Father Obesity Father Heart disease Father Atrial fibrillation Sister Fibroids Sister Liver disease Sister Kidney disease Sister Anemia Sister Cancer Sister Skin Hypertension Sister Obesity Sister Thyroid disease Sister Cancer Paternal Grandfather Heart disease Paternal Grandfather Cancer Maternal Uncle Obesity Maternal Aunt Obesity Maternal Uncle Heart disease Maternal Grandfather Social History Socioeconomic History Marital status: Number of children: 2 Tobacco Use Smoking status: Never Passive exposure: Never Smokeless tobacco: Never Vaping Use Vaping status: Never Used Substance and Sexual Activity Alcohol use: Not Currently Comment: Maybe 3 drinks annually Drug use: Never Sexual activity: Yes Partners: Male control/protection: Tubal ligation, Hysterectomy Objective Vital Signs: BP 110/78 (BP Location: Right arm, Patient Position: Sitting, Cuff Size:Large Adult) Pulse 91 Ht 160.7 cm (63.25 ) Wt 126 kg (278 lb) SpO2 96% BMI 48.86 kg/m Estimated body mass index is 48.86 kg/m as calculated from thefollowing: Height as of this encounter: 160.7 cm (63.25 ). Weight as of this encounter: 126 kg (278 lb). Physical Exam Constitutional: Appearance: Normal appearance. She is well-developed. HENT: Head: Normocephalic and atraumatic. Eyes: General: No scleral icterus. Pupils: Pupils are equal, round, and reactive to light. Cardiovascular: Rate and Rhythm: Normal rate and regular rhythm. Heart sounds: Normal heart sounds. No murmur heard. Pulmonary: Breath sounds: Normal breath sounds. No wheezing or rhonchi. Musculoskeletal: Right lower leg: No edema. Left lower leg: No edema. Skin: Capillary Refill: Capillary refill takes less than 2 seconds. Coloration: Skin is not cyanotic. Nails: There is no clubbing. Neurological: Mental Status: She is alert and oriented to person, place, and time. Motor: No weakness. Gait: Gait normal. Psychiatric: Mood and Affect: Mood normal. Behavior: Behavior is cooperative. Thought Content: Thought content normal. ECG 12 Lead Date/Time: 05/03/2025 2:22 PM Performed by: Yaneth Ugarte MD Authorized by: Yaneth Ugarte MD Comparison: compared with previousECG from 03/02/2025 Similar to previous ECG Rhythm: sinus rhythm Ectopy: unifocal PVCs Rate: normal Conduction: conduction normal ST Segments: ST segments normal T Waves: T waves normal QRS axis: normal Other: no other findings Clinical impression: non-specific ECG Assessment and Plan ASSESSMENTS AND ORDERS Diagnoses and all orders for this visit: 1. Hypercholesterolemia (Primary) - Comprehensive Metabolic Panel; Future - Magnesium; Future - TSH Rfx On Abnormal To Free T4; Future - Lipid Panel; Future 2. PVC (premature ventricular contraction) - Comprehensive Metabolic Panel; Future - Magnesium; Future - TSH Rfx On Abnormal To Free T4; Future - Lipid Panel; Future 3. Precordial chest pain Other orders - ECG 12 Lead Other orders ECG 12 Lead PLAN -chronic chest pain fairly stable, she wonders if it is possibly lungrelated too -PVCs new, check electrolytes -palpitations continue. Monitor fairly recently did not show arrhythmia -update thyroid for palptiations as well. Follow Up No follow-ups on file. Laura Ugarte MD [facility] 05/03/2025 Please note that this explicitly excludes time spent on other separatebillable services such as performing procedures or test interpretation,when applicable. This note was created using dictation software which occasionallytranscribes nonsensical phrases. Please contact the provider if anyclarification is needed. us Yaneth Ugarte MD ECG ORDERABLES Final Result documented in this encounter Visit Diagnoses Diagnosis Hypercholesterolemia- Primary Pure hypercholesterolemia PVC (premature ventricular contraction) Other premature beats Precordial chest pain Precordial pain Swelling of lower extremity documented in this encounter Care Teams Acquisition Manager Relationship Specialty Start Date End Date Juarez Griffin MD [address] [facility] [address] [place] [address] PCP - General Internal Medicine 05/30/23 documented as of this encounter
--- OUTSIDE RECORDS SUMMARY | 2025-06-16 15:22 | XMS_ITS | Encounter Summary ---
Author Organization [facility] Address [address] [place] [id number] Care Team Providers Care Kitchenhand Name Role Phone Juarez Griffin MD Primary Care Provider [phone] Encounter Details Date Type Department Care Team (Late st Contact Info) Description 05/03/2025 Patient rounding ([facility] only) [facility] [address] [place] [address] Yaneth Ugarte MD [address] [place] [address] Social History Tobacco Use Types Packs/Day Years Used Date Smoking Tobacco: Never Passive Smoke Exposure: Never Smokeless Tobacco: Never Alcohol Use Standard Drinks/Week Comments Not Currently 0 (1 standard drink = 0.6 oz pur e alcohol) Maybe 3 drinks annually [facility] Utilities Answer Date Recorded In the past 12 months has [place], gas, oil, or water [employer] threatened to shut off services in your [...] hard at all 04/16/2024 [facility] [place] of Occupat ional Health - Occupational Stress [...] or training? Not on file Preferred Language Chinese 02/25/2025 PHQ-2 Answer Date Recorded Retired PHQ-9: [...] is Landy Alonzo and I am the Building Energy Consultant for [facility] Card[facility]. I would like to thank [...] your first visit to us as a [facility] facility? In the next few days, you will be receiving a Patient Experience Survey. Thank you for taking the time to answer a few questions today. I hope you have a good day. documented in this encounter Plan of Treatment Upcoming Encounters Date Type Department Care Team (Late st Contact Info) Description 07/01/2025 1:00 PM EDT Appointment [facility] [place] [address] [place] [id number] 07/01/2025 2:00 PM EDT Appointment [facility] [place] [address] [place] [phone] 07/06/2025 1:00 PM EDT Office Visit [facility] UROLOGY [address] [place] [address] Teressa Finley, BOTTLING ATTENDANT [address] [place] [address] 11/01/2025 1:30 PM EST Office Visit [facility] [address] [place] [address] Yaneth Ugarte MD [address] [place] [address] documented as of this encounter Visit Diagnoses Not on filedocumented in this encounter Care Teams Kitchenhand Relationship Specialty Start Date End Date Juarez Griffin MD [address] [facility] [address] [facility] [address] [place] [address] PCP - General Internal Medicine 05/30/23 documented as of this encounter
--- OUTSIDE RECORDS SUMMARY | 2025-06-16 15:22 | XMS_ITS | Encounter Summary ---
[facility] Address [address] [place] [id number] Care Team Providers Care Registered Radiographer Name Role Phone Juarez Griffin MD Primary Care Provider [phone] Encounter Details Date Type Department Care Team (Late st Contact Info) Description 04/29/2025 Telephone [facility] C[facility] [address] [place] [address] Yaneth Ugarte MD [address] [place] [address] Social History Tobacco Use Types Packs/Day Years Used Date Smoking Tobacco: Never Passive Smoke Exposure: Never Smokeless Tobacco: Never Alcohol Use Standard Drinks/Week Comments Not Currently 0 (1 standard drink = 0.6 oz pur e alcohol) Maybe 3 drinks annually [facility] Utilities Answer Date Recorded In the past 12 months has [place], gas, oil, or water [employer] threatened to shut off services in your [...] and heating? Not hard at all 04/16/2024 [employer] of Occupat ional Health - Occupational Stress [...] or training? Not on file Preferred Language German 02/25/2025 PHQ-2 Answer Date Recorded Retired PHQ-9: [...] EDT Appointment [facility] [place] [address] [place] [address] 07/01/2025 2:00 PM EDT Appointment [facility] [address] [facility] [place] [address] [place] [address] 07/06/2025 1:00 PM EDT Office Visit [facility] [address] [place] [address] Teressa Finley, PREETI [address] [place] [address] 11/01/2025 1:30 PM EST Office Visit [facility] [address] [place] [address] Yaneth Ugarte MD [address] [place] [address] documented as of this encounter Visit Diagnoses Not on filedocumented in this encounter Care Teams Registered Radiographer Relationship Specialty Start Date End Date Juarez Griffin MD [address] [place] [facility] [address] [place] [address] PCP - General Internal Medicine 05/30/23 documented as of this encounter
--- OUTSIDE RECORDS SUMMARY | 2025-06-16 15:22 | XMS_ITS | Clinical Summary ---
Author Organization [facility] Address [address] [place] [id number] Care Team Providers Care Configuration Management Architect Name Role Phone Juarez Griffin MD Primary Care Provider [phone] Allergies Active Allergy Reactions Criticality Noted Date [...] s:Nephrolithias is,Recurrent UTI Call 911. Don't prime. [place] in 1 nostril for overdose. Repeat in [...] Type Department Care Team Description 05/11/[address] [facility] CARDIOLOGY [address] [address] Shell Diaz RegSched Rep 05/10/2025 Results Follow-Up [facility] [address] [address] Yaneth Ugarte MD 05/03/2025 1:30 PM EDT Office Visit [facility] [address] [address] Yaneth Ugarte MD Hypercholesterolemia (Primary Dx); PVC (premature ventricular contraction); Precordial chest pain; Swelling of lower extremity 05/03/2025 Patient rounding ([facility] only) [facility] [address] [address] Yaneth Ugarte MD 05/03/2025 Travel 04/29/[address] [facility] [address] [address] Yaneth Ugarte MD 04/05/2025 9:00 AM EDT Procedure visit [facility] [address] [facility] [address] [address] Demarcus Ames MD Staghorn calculus (Primary Dx) 04/05/2025 Travel 04/01/[address] [facility] [address] [facility] [address] [address] TODD - CLINICAL 03/31/2025 10:26 AM EDT Anesthesia Event [facility] [address] [place] [address] Edgardo Ryan, SANDRA 03/31/2025 10:10 AM EDT - 03/31/2025 12:11 PM EDT Surgery [facility] [address] [place] [address] Demarcus Ames MD Percutaneous nephrolithotomy with stent placement left, cystoscopy 03/31/2025 10:05 AM EDT Anesthesia Event Converted [facility] ANEST[facility] [address] [place] [address] 03/31/2025 8:29 AM EDT - 03/31/2025 2:15 PM EDT Hospital Encounter [facility] [address] [place] [address] Demarcus Ames MD Staghorn calculus Discharge Disposition: Home or Self Care 03/31/[address] [facility] [address] [facility] [address] [address] TODD - POST OP FOLLOW UP 03/31/[address] [facility] UR[facility] [address] [place] [address] [address] TODD - SCHEDULING 03/31/2025 Travel 03/25/[address] [facility] [address] [facility] [address] [address] Demarcus Ames MD 03/24/2025 1:00 PM EDT Pre-Admission Testing [facility] PREAD[facility] T [address] [place] [address] 03/24/2025 Travel 03/17/[address] [facility] [address] [place] [address] Demarcus Ames MD 03/16/[address] [facility] [address] [facility] [address] [place] [address] Demarcus Ames MD from Last 3 Months Family History Medical [...] pur e alcohol) Maybe 3 drinks annually [facility] Utilities Answer Date Recorded In the past 12 months has [employer], gas, oil, or water [employer] threatened to shut off services in your [...] and heating? Not hard at all 04/16/2024 [facility] [place] of Occupat ional Health - Occupational Stress [...] or training? Not on file Preferred Language Croatian 02/25/2025 PHQ-2 Answer Date Recorded Retired PHQ-9: [...] Info) Description 07/01/2025 1:00 PM EDT Appointment [facility] ULTRASOUND AT [address] [address] 07/01/2025 2:00 PM EDT Appointment [facility] [place] [address] [place] [address] 07/06/2025 1:00 PM EDT Office Visit [facility] [address] [facility] [address] [place] [address] Teressa Finley, DIRECTOR OF BLOOD [address] [facility] [address] [place] [address] 11/01/2025 1:30 PM EST Office Visit [facility] CARDI[facility] [address] [place] [address] Yaneth Ugarte MD [address] [place] [address] Health Maintenance Due Date Last Done Comments [...] Completed 04/10/2024 Medical Devices Implanted Type Area Services Program Manager Device Identifier Shelf Expiration Date Model / Serial / Lot Kt Seal Hemos Abs Floseal Matrx Fast/Prep 5ml - [id number] Implanted:Qty : 1 on 04/15/2024 by Demarcus Ames MD at [facility] Implant Right: Kidney [employer] 05/29/2025 [id number] / / [id number] Clip Ligat Vasc Horizon Ti Daniel 6ct - [id number] Implanted:Qty : 2 on 03/04/2025 by Zac Mckeon MD at [facility] Implant N/A: Neck [employer] [id number] / / Clip Ligat Vasc Horizon Ti Sm Yel 6ct - [id number] Implanted:Qty : 4 on 03/04/2025 by Zac Mckeon MD at [facility] Implant N/A: Neck [employer] [id number] / / Hemost Abs Surgicel Orig 4x8in Strl - [id number] Implanted:Qty : 1 on 03/04/2025 by Zac Mckeon MD at [facility] Implant N/A: Neck [employer] [id number] / / Kt Seal Hemos Abs Floseal Matrx 1.5/Fast/Prep 5000/Iu 5ml - [id number] Implanted:Qty : 1 on 03/31/2025 by Demarcus Ames MD at [facility] Implant Left: Back [employer] 08/13/2026 [id number] / / [id number] Stnt Percuflx No Gw 7x26 - [id number] Implanted:Qty : 1 on 04/15/2024 by Demarcus Ames MD at [facility] Stent Right: Kidney [employer] 09/06/2026 [id number] / / [id number] Stnt Percuflx No Gw 7x26 - [id number] Implanted:Qty : 1 on 03/31/2025 by Demarcus Ames MD at [facility] Stent Left: Back [employer] 08/10/2027 [id number] / / [id number] Procedures Procedure Name Priority Date/Time Associated Diagnosis [...] ORDERABLES Final R esult Performing Organization Address [facility] Co de Phone Number [facility]
[address] [place] [address], [place] [phone] * Magnesium (05/07/2025) Blood us Yaneth Ugrate MD LAB BLOOD ORDERABLES Final R esult Performing Organization Address [facility] Co de Phone Number [facility]
[address] [place] [address], [place] [phone] * Lipid Panel (05/07/2025) Blood us Yaneth Ugarte MD LAB BLOOD ORDERABLES Final R esult Performing Organization Address [facility] Co mo Phone Number [facility]
[address] [place] [address], [place] [phone] * Comprehensive Metabolic Panel (05/07/2025) Blood us Yaneth Ugarte MD LAB BLOOD ORDERABLES Final R esult Performing Organization Address [facility] Co de Phone Number [facility]
[address] [place] [id number], [place] [phone] * ECG 12-LEAD (05/03/2025 2:22 PM EDT) [...] UT) capsule capsule, Take 1 capsule by Td., Disp: 30 capsule, Rfl: 11 Past Medical [...] PARATHYROIDECTOMY N/A 03/04/2025 Procedure: PARATHYROIDECTOMY; Surgeon: Zac Mckeno MD;Location: [facility] OR; Service: General; Laterality: N/A; PERCUTANEOUS NEPHROSTOLITHOTOMY Right 04/15/2024 Procedure: CYSTOSCOPY & BALLOON OCCLUSION CATHETER PLACEMENT, PRIMARYPERCUTANEOUS ACCESS, NEPHROSTOLITHOTOMY PERCUTANEOUS, WITH STENT EXCHANGE;Surgeon: Demarcus Ames MD; Location: [facility] OR; Service:Urology; Laterality: Right; PERCUTANEOUS NEPHROSTOLITHOTOMY Left 03/31/2025 Procedure: Percutaneous nephrolithotomy with stent placement left,cystoscopy; Surgeon: Demarcus Ames MD; Location: [facility] OR;Service: Urology; Laterality: Left; TUBAL ABDOMINAL LIGATION [...] Laura Ugarte MD Cardiology and Sleep [facility] 05/03/2025 Please note that this explicitly excludes time spent on other separatebillable services such as performing procedures or test interpretation,when applicable. This note was created using dictation software which occasionallytranscribes nonsensical phrases. Please contact the provider if anyclarification is needed. Yaneth Ugarte MD ECG ORDERABLES Final Result * LABS SCANNED (04/11/2025) Yaneth Ugarte MD LAB BLOOD ORDERABLES Final [...] Proteus mirabilis(A) TOMASA 04/03/2025 9:18 AM EDT [facility] Gram Stain No organisms seen 04/03/2025 9:18 AM EDT [facility] Calculus Left kidney structure [...] MICROBIOLOGY - GENERAL OR DERABLES Final Result [facility]
[address] [place] [address], [place] [phone] [facility]
[address] [place] [address], [place] [phone] * STONE ANALYSIS - Calculus, Kidney, Left [...] 04/14/2025 10:06 PM EDT [facility] Magnesium [place] Phos 40 % 04/14/2025 10:06 PM EDT [...] 10:06 PM EDT Performed at: [facility] - [facility] [place] [id number] Industrial Psychology Teacher: Mariam Turner PhD, Phone: [phone] us Demarcus Ames MD BODY FLUIDS AND STOOLS OR DERABLES Final Result [facility] [address] [place] [address], * BH AN ETT AIRWAY (03/31/2025 10:40 AM EDT) Narrative Edgardo Ryan CRNA - 03/31/2025 10:40 AM EDT Edgardo Ryan CRNA 03/31/2025 10:41 AM Airway Reason: elective Date/Time: 03/31/2025 10:32 AM Airway not difficult General Information and Staff Patient location during procedure: OR VISITOR SERVICES COORDINATOR/CAA: Edgardo Ryan CRNA Indications and Patient Condition [...] POC Glucose Once (03/31/2025 9:12 AM EDT) [facility] Glucose 200(H) 70 - 130 mg/dL 03/31/2025 9:33 AM EDT [facility] Comment:Serial Number: [id number] Blood 03/31/2025 9:12 AM EDT 03/31/2025 9:33 AM EDT us Demarcus Ames MD POINT OF CARE TEST ORDERA BLES Final Result Performing Organization Address City/[facility]/ZIP Co de Phone Number [facility]
[address] [place] [address], * Type & Screen (03/31/2025 9:03 AM EDT) ABO Type AB 03/31/2025 10:05 AM EDT [facility] BB LABOR[facility] RH type Positive 03/31/2025 10:05 AM EDT [facility] Antibody Screen Negative 03/31/2025 10:05 AM EDT [facility] T&S Expiration Date 04/03/2025 11:59:59 PM 03/31/2025 10:05 AM EDT [facility] Blood Venipuncture / Unknown 03/31/2025 9:03 AM EDT 03/31/2025 9:09 AM EDT Demarcus Ames MD BLOOD BANK TEST ORDERABLE S Edited Result - Final Performing Organization Address City/[facility]/ZIP Co de Phone Number [facility]
[address] [place] [address], * Telemetry Scan (03/31/2025) [facility] Onbase ECG ORDERABLES Final Result * CBC (No Diff) (03/24/2025 1:13 PM EDT) WBC 10.22 3.40 - 10.80 10*3/mm3 03/24/2025 3:17 PM EDT [facility] RBC 5.25 3.77 - 5.28 10*6/mm3 03/24/2025 3:17 PM EDT [facility] Hemoglobin 14.8 12.0 - 15.9 g/dL 03/24/2025 3:17 PM EDT [facility] Hematocrit 45.0 34.0 - 46.6 % 03/24/2025 3:17 PM EDT [facility] MCV 85.7 79.0 - 97.0 fL 03/24/2025 3:17 PM EDT [facility] MCH 28.2 26.6 - 33.0 pg 03/24/2025 3:17 PM EDT [facility] MCHC 32.9 31.5 - 35.7 g/dL 03/24/2025 3:17 PM EDT [facility] RDW 13.8 12.3 - 15.4 % 03/24/2025 3:17 PM EDT [facility] RDW-SD 42.9 37.0 - 54.0 fl 03/24/2025 3:17 PM EDT [facility] MPV 11.2 6.0 - 12.0 fL 03/24/2025 3:17 PM EDT [facility] Platelets 326 140 - 450 10*3/mm3 03/24/2025 3:17 PM EDT [facility] Blood Line / Unknown 03/24/2025 1: 13 PM EDT 03/24/2025 3:13 PM EDT Demarcus Ames MD LAB BLOOD ORDERABLES Maria E l Result [facility]
[address] [place] [address], * (ABNORMAL) Basic Metabolic Panel (03/24/2025 1:13 PM EDT) [facility] Glucose 120(H) 65 - 99 mg/dL 03/24/2025 3:42 PM EDT [facility] BUN 16.0 6.0 - 20.0 mg/dL 03/24/2025 3:42 PM EDT [facility] Creatinine 0.90 0.57 - 1.00 mg/dL 03/24/2025 3:42 PM EDT [facility] Sodium 140 136 - 145 mmol/L 03/24/2025 3:42 PM EDT [facility] Potassium 4.1 3.5 - 5.2 mmol/L 03/24/2025 3:42 PM EDT [facility] Chloride 97(L) 98 - 107 mmol/L 03/24/2025 3:42 PM EDT [facility] CO2 26.5 22.0 - 29.0 mmol/L 03/24/2025 3:42 PM EDT [facility] Calcium 9.7 8.6 - 10.5 mg/dL 03/24/2025 3:42 PM EDT [facility] BUN/Creatinine Ratio 17.8 7.0 - 25.0 03/24/2025 3:42 PM EDT [facility] Anion Gap 16.5(H) 5.0 - 15.0 mmol/L 03/24/2025 3:42 PM EDT [facility] eGFR 77.6 >60.0 mL/min/1.7 3 03/24/2025 3:42 PM EDT [facility] Blood Line / Unknown 03/24/2025 1: 13 PM EDT 03/24/2025 3:13 PM EDT [facility] - 03/24/2025 3:42 PM EDT [...] LAB BLOOD ORDERABLES Maria E jaiden Result [facility]
[address] [place] [address], [place] [phone] * (ABNORMAL) Urinalysis, Microscopic Only - Urine, Clean Catch (03/24/2025 1:08 PM EDT) RBC, UA 3-5(A) None Seen, 0-2 /HPF 03/24/2025 3:45 PM EDT [facility] WBC, UA 6-10(A) None Seen, 0-2 /HPF 03/24/2025 3:45 PM EDT [facility] Bacteria, UA Trace(A) None Seen /HPF 03/24/2025 3:45 PM EDT [facility] Squamous Epithelial Cells, UA 0-2 None Seen, 0-2 /HPF 03/24/2025 3:45 PM EDT [facility] Hyaline Casts, UA 0-2 None Seen /LPF 03/24/2025 3:45 PM EDT [facility] Methodology Manual Light Microscopy 03/24/2025 3:45 PM EDT [facility] Urine Urine specimen obtained by clean catch procedure / Unknown Collection / Unknown 03/24/2025 1:08 PM EDT 03/24/2025 3:12 PM EDT us Demarcus Ames MD URINE ORDERABLES Final Re sult [facility]
[address] [place] [address], * (ABNORMAL) Urinalysis With Culture If Indicated - Urine, Clean Catch (03/24/2025 1:08 PM EDT) Color, UA Yellow Yellow, Straw 03/24/2025 3:31 PM EDT [facility] Appearance, UA Clear Clear 03/24/2025 3:31 PM EDT [facility] pH, UA 5.5 5.0 - 8.0 03/24/2025 3:31 PM EDT [facility] Specific [place], UA 1.010 1.005 - 1.030 03/24/2025 3:31 PM EDT [facility] Glucose, UA >=1000 mg/dL (3+)(A) Negative 03/24/2025 3:31 PM EDT [facility] Ketones, UA Negative Negative 03/24/2025 3:31 PM EDT [facility] Bilirubin, UA Negative Negative 03/24/2025 3:31 PM EDT [facility] Blood, UA Small (1+)(A) Negative 03/24/2025 3:31 PM EDT [facility] Protein, UA Negative Negative 03/24/2025 3:31 PM EDT [facility] Leuk Esterase, UA Small (1+)(A) Negative 03/24/2025 3:31 PM EDT [facility] Nitrite, UA Negative Negative 03/24/2025 3:31 PM EDT [facility] Urobilinogen, UA 0.2 E.U./dL 0.2 - 1.0 E.U./dL 03/24/2025 3:31 PM EDT [facility] Urine Urine specimen obtained by clean catch procedure / Unknown Collection / Unknown 03/24/2025 1:08 PM EDT 03/24/2025 3:12 PM EDT [facility] LAB[facility]ATORY - 03/24/2025 3:31 PM EDT In absence of clinical symptoms, the presence of pyuria, bacteria, and/or nitrites on the urinalysis result does not correlate with infection. Demarcus Ames MD URINE ORDERABLES Final Re sult [facility]
[address] [place] [address], * Urine Culture - Urine, Urine, Clean Catch (03/24/2025 1:08 PM EDT) Urine Culture <25,000 CFU/mL Normal Urogenital Martina TOMASA 03/25/2025 11:10 AM EDT [facility] Urine Urine specimen obtained by clean catch procedure / Unknown Collection / Unknown 03/24/2025 1:08 PM EDT 03/24/2025 3:12 PM EDT Narrative [facility] - 03/25/2025 11:10 AM EDT Colonization of the urinary tract without infection is common. Treatment is discouraged unless the patient is symptomatic, , or undergoing an invasive urologic procedure. Demarcus Ames MD MICROBIOLOGY - GENERAL OR DERABLES Final Result [facility]
[address] [place] [address], from Last [address] [facility] Care Teams Configuration Management Architect Relationship Specialty Start Date End Date Juarez Griffin MD [address] [facility] [address] [place] [address] PCP - General Internal Medicine 05/30/23
--- OUTSIDE RECORDS SUMMARY | 2025-06-16 15:22 | XMS_ITS | Encounter Summary ---
Author Organization [facility] Address [address] [place] [address] Care Team Providers Care Mechanist Name Role Phone Juarez Griffin MD Primary Care Provider [phone] Encounter Details Date Type Department Care Team (Latest Contact Info) Description 05/03/2025 Travel Social History Tobacco Use Types Packs/Day Years Used Date Smoking Tobacco: Never Passive Smoke Exposure: Never Smokeless Tobacco: Never Alcohol Use Standard Drinks/Week Comments Not Currently 0 (1 standard drink = 0.6 oz pur e alcohol) Maybe 3 drinks annually [facility] Utilities Answer Date Recorded In the past 12 months has [employer], gas, oil, or water [employer] threatened to shut off services in [...] and heating? Not hard at all 04/16/2024 [facility] [place] of Occupat ional Health - Occupational Stress [...] or training? Not on file Preferred Language Upper Sorbian 02/25/2025 PHQ-2 Answer Date Recorded Retired PHQ-9: [...] [facility] [address] [place] [address] 07/01/2025 2:00 PM EDT Appointment [facility] [address] [place] [address] 07/06/2025 1:00 PM EDT Office Visit [facility] UROLOGY [address] [facility] [address] [place] [address] Teressa Finley, PREETI [address] [address] 11/01/2025 1:30 PM EST Office Visit [facility] CARDIOLOGY [address] [place] [address] Yaneth Ugarte MD [address] [place] [address] documented as of this encounter Visit Diagnoses Not on filedocumented in this encounter Care Teams Mechanist Relationship Specialty Start Date End Date Juarez Griffin MD [address] [facility] [address] [place] [address] PCP - General Internal Medicine 05/30/23 documented as of this encounter
--- OUTSIDE RECORDS SUMMARY | 2025-06-16 15:22 | XMS_ITS | Encounter Summary ---
[facility] Organization [facility] Address [address] [place] [address] Care Team Providers Care Chief Bank Examiner Name Role Phone Juarez Griffin MD Primary Care Provider [phone] Encounter Details Date Type Department Care Team (Late st Contact Info) Description 05/10/2025 Results Follow-Up [facility] CARDIOLOGY [address] [place] [place] [address] Yaneth Ugarte MD [address] [place], [place] [id number] Social History Tobacco Use Types Packs/Day Years Used Date Smoking Tobacco: Never Passive Smoke Exposure: Never Smokeless Tobacco: Never Alcohol Use Standard Drinks/Week Comments Not Currently 0 (1 standard drink = 0.6 oz pur e alcohol) Maybe 3 drinks annually [facility] Utilities Answer Date Recorded In the past 12 months has [employer], gas, oil, or water [employer] threatened to shut off services in your [...] and heating? Not hard at all 04/16/2024 [facility] of Occupat ional Health - Occupational Stress [...] [facility] [place] [address] [place] [address] 07/01/2025 2:00 PM EDT Appointment [facility] [address] [place] [address] [place] [address] 07/06/2025 1:00 PM EDT Office Visit [facility] UROLOGY [address] [address] Teressa Finley, PREETI [address] [id number] 11/01/2025 1:30 PM EST Office Visit [facility] CARDIOLOGY [address] [place] [address] Yaneth Ugarte MD [address] [place] [address] documented as of this encounter Visit Diagnoses Not on filedocumented in this encounter Care Teams Chief Bank Examiner Relationship Specialty Start Date End Date Juarez Griffin MD [address] [facility] [address] [place] [address] PCP - General Internal Medicine 05/30/23 documented as of this encounter
--- OUTSIDE RECORDS SUMMARY | 2025-06-16 15:22 | XMS_ITS | Encounter Summary ---
Author Organization [facility] Address [address] [place] [address] Care Team Providers Care Spinner Cap Frame Name Role Phone Juarez Griffin MD Primary Care Provider [phone] Encounter Details Date Type Department Care Team (Late st Contact Info) Description 05/11/2025 Telephone [facility] CARDIOLOGY [address] [place] [address] Shell Diaz RegSched Rep Social History Tobacco Use Types Packs/Day Years Used Date Smoking Tobacco: Never Passive Smoke Exposure: Never Smokeless Tobacco: Never Alcohol Use Standard Drinks/Week Comments Not Currently 0 (1 standard drink = 0.6 oz pur e alcohol) Maybe 3 drinks annually [facility] Utilities Answer Date Recorded In the past 12 months has [employer], gas, oil, or water company threatened [...] and heating? Not hard at all 04/16/2024 [facility] [place] of Occupat ional Health - Occupational Stress [...] or training? Not on file Preferred Language Macedonian 02/25/2025 PHQ-2 Answer Date Recorded Retired PHQ-9: [...] Info) Description 07/01/2025 1:00 PM EDT Appointment [facility] ULTR[facility]OUND [address] [place] [address] [place] [address] 07/01/2025 2:00 PM EDT Appointment [facility] [address] [place] [address] [place] [address] 07/06/2025 1:00 PM EDT Office Visit [facility] UROLOGY [address] [phone] Teressa Finley, PRESETTER OPERATOR [address] [facility] [address] [place], [place] [id number] 11/01/2025 1:30 PM EST Office Visit [facility] CARDIOLOGY [address] [place] [address] Yaneth Ugarte MD [address] [place] [address] documented as of this encounter Visit Diagnoses Not on filedocumented in this encounter Care Teams Spinner Cap Frame Relationship Specialty Start Date End Date Juarez Griffin MD [address] [place] [facility] [address] [facility] [address] [place] [address] PCP - General Internal Medicine 05/30/23 documented as of this encounter
--- OUTSIDE RECORDS SUMMARY | 2025-06-16 15:23 | XMS_ITS | Encounter Summary ---
Author Organization [facility] Address [address] [place] [address] Care Team Providers Care Ring Sewer Name Role Phone Juarez Griffin MD Primary Care Provider [phone] Karen Naqvi DO Unavailable [phone] Encounter Details Date Type Department Care Team ([facility] st Contact Info) Description 02/12/2024 Orders Only External Location [address] [place] [address] Gennaro Cuevas MD [facility] [address] [place] [address] Social History Tobacco Use Types Packs/Day Years [...] Added from external infection. Source: [facility]. This patient will require contact precautions indefinitely. 04/01/2024 documented as of this encounter Care Teams Ring Sewer Relationship Specialty Start Date End Date Juarez Griffin MD [address] [place] [address] PCP - General 03/10/21 Karen Naqiv DO [facility] [address] [place] [address] Referring Physician Obstetrics and Gynecology 09/23/24 documented as of this encounter
--- OUTSIDE RECORDS SUMMARY | 2025-06-16 15:23 | XMS_ITS | Encounter Summary ---
[facility] Address [address] [place] [address] Care Team Providers Care Bean Roaster Name Role Phone Juarze Griffin MD Primary Care Provider [phone] Reason for Visit * Reason Onset Date Comments DR AMES - SCHEDULING 03/31/2025 Encounter Details Date Type Department Care Team (Late st Contact Info) Description 03/31/2025 Telephone [facility] UROLOGY 7[address] [facility] [address] [address] Demarcus Ames MD [address] [address] [address] AMES - SCHEDULING Social History Tobacco Use Types Packs/Day Years Used Date Smoking Tobacco: Never Passive Smoke Exposure: Never Smokeless Tobacco: Never Alcohol Use Standard Drinks/Week Comments Not Currently 0 (1 standard drink = 0.6 oz pur e alcohol) Maybe [address] [facility] Utilities Answer Date Recorded In the past 12 months has [employer], [employer], oil, or water [employer] threatened to shut off services in [...] and heating? Not hard at all 04/16/2024 [facility] [place] of Occupat ional Health - Occupational Stress [...] 9:18 AM EDT Cathy Curtis RN * [place] Suicide Severity Rating Scale (Screener/Recent Self-Report) Question Answer Date of Assessment Author 6. Suicidal Behavior (Lifetime) No 9:18 AM EDT Vandana Curtis RN documented as of this encounter Miscellaneous Notes * Telephone Encounter - Ashleigh Crowell - 03/31/2025 1:55 PM EDT Caller: LISSY VALDEZ Relationship to patient: SELF Best call back number: [phone] Chief complaint: PATIENT HAD SURGERY TODAY AND [...] Info) Description 07/01/2025 1:00 PM EDT Appointment [facility] UL[facility]OUND [place] [address] [place] [address] 07/01/2025 2:00 PM EDT Appointment [facility] CT [place] [address] [place] [address] 07/06/2025 1:00 PM EDT Office Visit [facility] UROLOGY [address] [place] [address] Teressa Finley APRN [address] [place] [address] 11/01/2025 1:30 PM EST Office Visit [facility] CARDIOLOGY [address] [place] [address] Yaneth Ugarte MD [address] [place] [address] documented as of this encounter Visit Diagnoses Not on filedocumented in this encounter Care Teams Bean Roaster Relationship Specialty Start Date End Date Juarez Griffin MD [address] [place] [facility] [address] [place] [id number] PCP - General Internal Medicine 05/30/23 documented as of this encounter
--- OUTSIDE RECORDS SUMMARY | 2025-06-16 15:23 | XMS_ITS | Encounter Summary ---
[facility] Organization [facility] Address [address] [place] [address] Care Team Providers Care Rubber Ball Finisher Name Role Phone Juarez Griffin MD Primary Care Provider [phone] Reason for Visit * Reason Onset Date Comments DR AMES - POST OP FOLLOW UP 03/31/2025 Encounter Details Date Type Department Care Team (Late st Contact Info) Description 03/31/2025 Telephone [facility] UROLOGY [address] [facility] [address] [address] Demarcus Ames MD [address] [address] [address] AMES - POST OP FOLLOW UP Social History Tobacco Use Types Packs/Day Years Used Date Smoking Tobacco: Never Passive Smoke Exposure: Never Smokeless Tobacco: Never Alcohol Use Standard Drinks/Week Comments Not Currently 0 (1 standard drink = 0.6 oz pur e alcohol) Maybe 3 drinks annually [facility] Utilities Answer Date Recorded In the past 12 months has [employer], gas, oil, or water [employer] threatened to shut off services in your [...] hard at all 04/16/2024 [facility] of [facility] - Occupational Stress Questionnaire [...] or training? Not on file Preferred Language Chilean 02/25/2025 PHQ-2 Answer Date Recorded Retired PHQ-9: [...] 9:18 AM EDT Cathy Curtis RN * [place] Suicide Severity Rating Scale (Screener/Recent Self-Report) Question Answer Date of Assessment Author 6. Suicidal Behavior (Lifetime) No 9:18 AM EDT Vandana Curtis RN documented as of this encounter Miscellaneous Notes * Telephone Encounter - Emily Mendez CMA - 03/31/2025 2:54 PM EDT Pt scheduled with commercial front load driver JUAN MIGUEL Christianson * Telephone Encounter - [...] Info) Description 07/01/2025 1:00 PM EDT Appointment [facility] ULTRASOUND [place] [address] [place] [address] 07/01/2025 2:00 PM EDT Appointment [facility] CT AT [place] [address] [place] [address] 07/06/2025 1:00 PM EDT Office Visit [facility] UROLOGY [address] [place] [address] Teressa Finley APRN [address] [facility] [address] [place] [address] 11/01/2025 1:30 PM EST Office Visit [facility] CARDIOLOGY [address] [place] [address] Yaneth Ugarte MD [address] [place] [address] documented as of this encounter Visit Diagnoses Not on filedocumented in this encounter Care Teams Rubber Ball Finisher Relationship Specialty Start Date End Date Juarez Griffin MD 1210 [facility] [address] [place] [id number] PCP - General Internal Medicine 05/30/23 documented as of this encounter
--- OUTSIDE RECORDS SUMMARY | 2025-06-16 15:23 | XMS_ITS | Clinical Summary ---
Author Organization [employer] ([place], [place], [place], [place]) Address [address] [place] [address] Care Team Providers Care Township Clerk Name Role Phone Juarez Griffin MD Primary Care Provider [phone] Allergies Active Allergy Reactions Criticality Noted Date [...] speak a language other than Turkmen at [facility]? No 12/27/2023 Do you want help [...] Completed 10/30/2023, Medical Devices Implanted Type Area Gymnastic Coach Device Identifier Shelf Expiration Date Model / Serial / Lot Loop Recorder LOOP RECORDER Left: Chest Insurance [employer] [facility] [place] Advance Directives For more information, please contact: [phone] * Full Code (Latest Code Status on File) Date Activated Date Inactivated Comments 12/27/2023 3:21 AM 12/30/2023 2:53 PM -Attempt Resus citation if person has no pulse and is not breathing. -If no pulse or not breathing attempt CPR/CODE. -Call Rapid Response if patient is in distress. Care Teams Township Clerk Relationship Specialty Start Date End Date Juarez Griffin MD [address] [place] [address] [place] [address] PCP - General General Internal Medicine 12/30/23
--- OUTSIDE RECORDS SUMMARY | 2025-06-16 15:23 | XMS_ITS | Encounter Summary ---
[facility] Organization [facility] Address [address] [place] [id number] Care Team Providers Care Customer Service Sales Associate Name Role Phone Juarez Griffin MD Primary Care Provider [phone] Encounter Details Date Type Department Care Team (Late st Contact Info) Description 04/16/2024 Retail Pharmacy Consultation [facility] [place] [address] [place] [address] [facility] [address] [place], [place] [id number] Social History Tobacco Use Types Packs/Day Years Used Date Smoking Tobacco: Never Passive Smoke Exposure: Never Smokeless Tobacco: Never Alcohol Use Standard Drinks/Week Comments Yes 0 (1 standard drink = 0.6 oz pur e alcohol) rarely C Utilities Answer Date Recorded In the past 12 months has [employer], gas, oil, or water [employer] threatened to shut off services in your [...] Not hard at all 04/16/2024 [facility] [place] of Occupat ional Health - Occupational Stress [...] GED or equivalent No 04/16/2024 Preferred Language Yakut 04/16/2024 PHQ-2 Answer Date Recorded Retired PHQ-9: [...] 1:00 PM EDT Appointment [facility] ULTRASOUND [place] [address] [place] [address] 07/01/2025 2:00 PM EDT Appointment [facility] [address] AT [place] [address] [place] [address] 07/06/2025 1:00 PM EDT Office Visit [facility] UROLOGY [address] [address] Teressa Finley APRN [address] [address] 11/01/2025 1:30 PM EST Office Visit [facility] CARDIOLOGY [address] [place] [address] Yaneth Ugarte MD [address] [place] [address] documented as of this encounter Visit Diagnoses Not on filedocumented in this encounter Additional Health Concerns Infection Onset Date Last Indicated Resolved Time ESBL 04/01/2024 04/01/2024 03/03/2025 6:48 AM EDT documented as of this encounter Care Teams Customer Service Sales Associate Relationship Specialty Start Date End Date Juarez Griffin MD [address] [place] [address] PCP - General Internal Medicine 05/30/23 documented as of this encounter
--- OUTSIDE RECORDS SUMMARY | 2025-06-16 15:23 | XMS_ITS | Referral Summary ---
Author Organization [employer] [facility] ([place], [place], [place], [place]) Address [address] [place] [address] Care Team Providers Care Fretted Instrument Inspector Name Role Phone Juarez Griffin MD Primary Care Provider [phone] Allergies Active Allergy Reactions Criticality Noted Date [...] speak a language other than Maltese at [facility]? No 12/27/2023 Do you want help with [...] on file Medical Devices Implanted Type Area Motor Mechanic Device Identifier Shelf Expiration Date Model / Serial / Lot Loop Recorder LOOP RECORDER Left: Chest Insurance [facility] [place] [id number] [facility] Advance Directives For more information, please contact: [phone] * Full Code (Latest Code Status on File) Date Activated Date Inactivated Comments 12/27/2023 3:21 AM 12/30/2023 2:53 PM -Attempt Resus citation if person has no pulse and is not breathing. -If no pulse or not breathing attempt CPR/CODE. -Call Rapid Response if patient is in distress. Care Teams Fretted Instrument Inspector Relationship Specialty Start Date End Date Juarez Griffin MD [address] [place] [address] [place] [address] PCP - General General Internal Medicine 12/30/23
--- OUTSIDE RECORDS SUMMARY | 2025-06-16 15:23 | XMS_ITS | Clinical Summary ---
Author Organization [facility] Address [address] [place] [address] Care Team Providers Care Dump Grader Name Role Phone Juarez Griffin MD Primary Care Provider [phone] Karen Naqvi DO Unavailable [phone] Allergies Active Allergy Reactions Criticality Noted Date [...] Comments Diabetes Father Wallace Heart disease Father [place] Hypertension Father Walalce Dementia Mother Marzena Hypertension Mother Marzena Cancer Mother's Brother Lino Heart disease Mother's Brother Lino Diabetes insipidus Other 1 Hypertension Other 2 Lupus Other 3 Cancer Paternal Grandfather Unknown Anesthesia problems Sister Marta Diabetes Sister Marta Heart disease Sister Marta Hypertension Sister Marta Relation Name Status Comments Father [place] Mother Marzena Mother's Brother Lino Other 1 [...] drink first t yue in the morning (EYE-HEMODIALYSIS TECHNICIAN) to steady your nerves or to get [...] PPSV23) 11/01/2021 09/06/2021 [facility]-Breast Cancer Screening 2023 [id number] Vaccine (3 - season) 2024 10/07/2022, 08/21/2021 [...] topic Medical Devices Implanted Type Area Business Banking Officer Device Identifier Shelf Expiration Date Model / Serial / Lot Stent Ureteral Double Pigtail Pos 6fr 24cm - [id number] - [id number] Implanted:Qty: 1 on 04/11/2024 by Harvey Macdonald MD at [facility] Stent Right: Ureter [id number] 01/02/2026 [id number] / [id number] / [id number] Loop Recorder-2016 Implanted:04/28 (Quantity not on file) [...] ORDERABLES Final Re sult [facility] [address] [place] [address] * Hepatitis C Antibody - ED (04/10/2024 6:11 PM EDT) Hepatitis C Antibody Negative Negative 04/10/2024 7:24 PM EDT [facility] Blood Venous blood specimen / Unknown Venipuncture / Unknown 04/10/2024 6:11 PM EDT 04/10/2024 6:26 PM EDT Susan Mcclure MD LAB BLOOD ORDERABLES Final Re sult Performing Organization Address City[facility] de Phone Number [facility] [address] [place] [address] * (ABNORMAL) Hemoglobin A1c (04/10/2024 6:11 PM [...] Adults <6.0% Children and Adolescents <7.5% Source: [place] Diabetes Association. Standards of medical care in diabetes,2017. Diabetes Care.2017:40 (suppl 1):S1-S135. HbA1c assay performed by an ion-exchange chromatography method that is certified traceable to the DCCT. Joselito Berrios MD LAB BLOOD ORDERABLES Final Re sult Performing Organization Address [facility] de Phone Number [facility] [address] [place] [address] from Last 3 Months or Most Recently Relevant to Health Maintenance Additional Health Concerns Infection Onset Date Last Indicated ESBL Comment:+ 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 Source: [facility]. This patient will require contact precautions indefinitely. 04/01/2024 Insurance [id number] [id number] [facility] MEDICAID Advance Directives * Full Code (Latest Code Status on File) Date Activated Date Inactivated Comments 04/11/2024 10:12 AM 04/12/2024 3:22 PM Question Answer Comments Patient has decision-making capacity? Yes Care Teams Dump Grader Relationship Specialty Start Date End Date Juarez Griffin MD [address] [facility] [address] [place] [address] PCP - General 03/10/21 Karen Naqvi DO 1210 [facility] [address] [place] [address] Referring Physician Obstetrics and Gynecology 09/23/24
--- OUTSIDE RECORDS SUMMARY | 2025-06-16 15:23 | XMS_ITS | Encounter Summary ---
[facility] Address [address] [place] [id number] Care Team Providers Care Physician In Private Practice Name Role Phone Juarez Griffin MD Primary Care Provider [phone] Encounter Details Date Type Department Care Team (Late st Contact Info) Description 04/20/2024 Telephone [facility] UROLOGY [address] [facility] [address] [address] Demarcus Ames MD [address] [address] Social History Tobacco Use Types Packs/Day Years Used Date Smoking Tobacco: Never Passive Smoke Exposure: Never Smokeless Tobacco: Never Alcohol Use Standard Drinks/Week Comments Yes 0 (1 standard drink = 0.6 oz pur e alcohol) rarely [facility] Utilities Answer Date Recorded In the past 12 months has [employer], gas, oil, or water [email or web address] threatened to shut off services in your [...] and heating? Not hard at all 04/16/2024 Ecu[place]orean [place] of Occupat ional Health - Occupational Stress [...] GED or equivalent No 04/16/2024 Preferred Language Spanish 04/16/2024 PHQ-2 Answer Date Recorded Retired PHQ-9: [...] EDT Appointment [facility] ULTRASOUND AT [place] [address] [place] [address] 07/01/2025 2:00 PM EDT Appointment [facility] CT [address] [place] [address] [place] [address] 07/06/2025 1:00 PM EDT Office Visit [facility] UROLOGY [address] [address] Teressa Finley, WELFARE ELIGIBILITY INTERVIEWER [address] [address] 11/01/2025 1:30 PM EST Office Visit [facility] CARDIOLOGY [address] [place] [address] Yaneth Ugarte MD [address] [place] [address] documented as of this encounter Visit Diagnoses Not on filedocumented in this encounter Additional Health Concerns Infection Onset Date Last Indicated Resolved Time ESBL 04/01/2024 04/01/2024 03/03/2025 6:48 AM EDT documented as of this encounter Care Teams Physician In Private Practice Relationship Specialty Start Date End Date Juarez Griffin MD [address] [place] [facility] [address] [place] [address] PCP - General Internal Medicine 05/30/23 documented as of this encounter"
--- OUTSIDE RECORDS SUMMARY | 2025-06-16 15:23 | XMS_ITS | Encounter Summary ---
[facility] Organization [facility] Address [address] [place] [address] Care Team Providers Care Pt Sitter Name Role Phone Juarez Griffin MD Primary Care Provider [phone] Reason for Visit * Reason Onset Date Comments DR AMES - CLINICAL 04/01/2025 Encounter Details Date Type Department Care Team (Late st Contact Info) Description 04/01/2025 Telephone [facility] UROLOGY [address] [facility] [address] [address] Demarcus Ames MD [address] [address] [address] AMES - CLINICAL Social History Tobacco Use Types Packs/Day Years Used Date Smoking Tobacco: Never Passive Smoke Exposure: Never Smokeless Tobacco: Never Alcohol Use Standard Drinks/Week Comments Not Currently 0 (1 standard drink = 0.6 oz pur e alcohol) Maybe 3 drinks annually [facility] Utilities Answer Date Recorded In the past 12 months has [employer], oil, or water [employer] threatened to shut off services in your [...] and heating? Not hard at all 04/16/2024 [facility] [place] of Occupat ional Health - Occupational Stress [...] or training? Not on file Preferred Language Mauritanian 02/25/2025 PHQ-2 Answer Date Recorded Retired PHQ-9: [...] OUT TO DISCUSS BEST NUMBER IS CELL [phone] documented in this encounter Plan of Treatment Upcoming Encounters Date Type Department Care Team (Late st Contact Info) Description 07/01/2025 1:00 PM EDT Appointment [facility]OUND [place] [address] [place] [address] 07/01/2025 2:00 PM EDT Appointment [facility] [place] [address] [facility] [place] [address] 07/06/2025 1:00 PM EDT Office Visit [facility] UROLOGY [address] [place] [address] Teressa Finley, INTERNAL CONTROLS CONSULTANT [address] [facility] [address] 3 [facility] [address] [place] [address] 11/01/2025 1:30 PM EST Office Visit [facility] CARDIOLOGY [address] [place] [address] Yaneth Ugarte MD [address] [place] [address] documented as of this encounter Visit Diagnoses Not on filedocumented in this encounter Care Teams Pt Sitter Relationship Specialty Start Date End Date Juarez Griffin MD 1210 [facility] [address] [place] [address] PCP - General Internal Medicine 05/30/23 documented as of this encounter
[2025-06-16 15:35] VITALS: BP 107/56; PULSE 102; RESP 16; O2SAT 97
[2025-06-16] MEDS: ERTAPENEM SODIUM 1 GM VIAL IM (15:35)
== END 2025-06-16 15:50 | disposition home or self-care (01) ==
LOC: INF 15:17
PROVIDERS: PCP Internal Medicine; Visit Provider Student in an Organized Health Care Education/Training Program
DX: N39.0 Urinary tract infection, site not specified (principal)
CPT/HCPCS: 96372; J1335

== ENCOUNTER 2025-06-17 14:44 | Outpatient (CLI) | payer OTHER, SELFPAY ==
--- OUTSIDE RECORDS SUMMARY | 2025-05-03 13:30 | XMS_ITS | Encounter Summary ---
Author Organization [facility] Address [address] [place] [address] Care Team Providers Care Signals Officer Name Role Phone Juarez Griffin MD Primary Care Provider [phone] Reason for Visit * Reason Comments Edema [...] Description 05/03/2025 1:30 PM EDT Office Visit [facility] CARDIOLOGY [address] [place] [...] pur e alcohol) Maybe 3 drinks annually [facility] Utilities Answer Date Recorded In the [...] and heating? Not hard at all 04/16/2024 [facility] of Occupat ional Health - [...] or training? Not on file Preferred Language Burundian 02/25/2025 PHQ-2 Answer Date Recorded Retired PHQ-9: [...] MG/0.1ML nasal spray, Call 911. Don't prime. [place] in 1 nostril for overdose. Repeat in [...] Chronic chest pain followed by Dr. Ugarte -[facility] 03/05/24 Chronic diastolic (congestive) heart failure cardiac [...] file. Laura Ugarte MD Cardiology and Sleep [facility] 05/03/2025 Please note that this explicitly [...] Info) Description 07/01/2025 1:00 PM EDT Appointment [facility] [place] [address] [place] [address] 07/01/2025 2:00 PM EDT Appointment [facility] [place] [address] [place] [address] 07/06/2025 1:00 PM EDT Office Visit [facility] UROLOGY [address] [phone] Teressa Finley, STRINGS TEACHER [address] [address] 11/01/2025 1:30 PM EST Office Visit [facility] CARDIOLOGY [address] [address] [...] 03/04/2025 Procedure: PARATHYROIDECTOMY; Surgeon: Zac Mckeon MD;Location: [facility] OR; Service: General; Laterality: N/A; PERCUTANEOUS NEPHROSTOLITHOTOMY Right 04/15/2024 Procedure: CYSTOSCOPY & BALLOON OCCLUSION CATHETER PLACEMENT, PRIMARYPERCUTANEOUS ACCESS, NEPHROSTOLITHOTOMY PERCUTANEOUS, WITH STENT EXCHANGE;Surgeon: Demarcus Ames MD; Location: [facility] OR; Service:Urology; Laterality: Right; PERCUTANEOUS NEPHROSTOLITHOTOMY [...] on file. Laura Ugarte MD Cardiology and [facility] 05/03/2025 Please note that this explicitly [...] extremity documented in this encounter Care Teams Signals Officer Relationship Specialty Start Date End Date Juarez Griffin MD [address] [facility] [address] [place] [address] PCP - General Internal Medicine 05/30/23 documented as of this encounter
--- OUTSIDE RECORDS SUMMARY | 2025-06-17 14:50 | XMS_ITS | Encounter Summary ---
Author Organization [facility] Address [address] [place] [id number] Care Team Providers Care Concession Supervisor Name Role Phone Juarez Griffin MD Primary Care Provider [phone] Encounter Details Date Type Department Care Team (Late st Contact Info) Description 04/29/2025 Telephone [facility] CARDIOLOGY [address] [place] [address] Yaneth Ugarte MD [address] [place] [address] Social History Tobacco Use Types Packs/Day Years Used Date Smoking Tobacco: Never Passive Smoke Exposure: Never Smokeless Tobacco: Never Alcohol Use Standard Drinks/Week Comments Not Currently 0 (1 standard drink = 0.6 oz pur e alcohol) Maybe 3 drinks annually [facility] Utilities Answer Date Recorded In the past 12 months has [employer] gas, oil, or water [email or web address] threatened to shut off services in your [...] and heating? Not hard at all 04/16/2024 [place]ijani [place] of Occupat ional Health - Occupational Stress [...] or training? Not on file Preferred Language Korean 02/25/2025 PHQ-2 Answer Date Recorded Retired PHQ-9: [...] Info) Description 07/01/2025 1:00 PM EDT Appointment [facility] UL[place]OUND [place] [address] [place] [address] 07/01/2025 2:00 PM EDT Appointment [facility] [address] [place] [address] [place] [address] 07/06/2025 1:00 PM EDT Office Visit [facility] UROLOGY [address] [place] [address] Teressa Finley, PREETI [address] [place] [address] 11/01/2025 1:30 PM EST Office Visit [facility] CARDIOLOGY [address] [place] [address] Yaneth Ugarte MD [address] [place] [address] documented as of this encounter Visit Diagnoses Not on filedocumented in this encounter Care Teams Concession Supervisor Relationship Specialty Start Date End Date Juarez Griffin MD [address] [place] [facility] [address] [place] [address] PCP - General Internal Medicine 05/30/23 documented as of this encounter
--- OUTSIDE RECORDS SUMMARY | 2025-06-17 14:50 | XMS_ITS | Encounter Summary ---
[facility] Organization [facility] Address [address] [place] [address] Care Team Providers Care Food And Beverage Assistant Manager Name Role Phone Juarez Griffin MD Primary Care Provider [phone] Encounter Details Date Type Department Care Team (Late st Contact Info) Description 05/10/2025 Results Follow-Up [facility] CARDIOLOGY [address] [place] [address] Yaneth Ugarte MD [address] [place], [place] [id number] Social History Tobacco Use Types Packs/Day Years Used Date Smoking Tobacco: Never Passive Smoke Exposure: Never Smokeless Tobacco: Never Alcohol Use Standard Drinks/Week Comments Not Currently 0 (1 standard drink = 0.6 oz pur e alcohol) Maybe 3 drinks annually [facility] Utilities Answer Date Recorded In the past 12 months has [email or web address], gas, oil, or water [employer] threatened to shut off services in your [...] and heating? Not hard at all 04/16/2024 [facility] [place] of Occupat ional Health - Occupational Stress [...] Info) Description 07/01/2025 1:00 PM EDT Appointment [facility] ULTRASOUND AT [place] [address] [place] [address] 07/01/2025 2:00 PM EDT Appointment [facility] CT AT [place] [address] [place] [address] 07/06/2025 1:00 PM EDT Office Visit [facility] UROLOGY [address] [address] Teressa Finley, PREETI [address] [id number] 11/01/2025 1:30 PM EST Office Visit [facility] C[facility] [address] [place] [address] Yaneth Ugarte MD [address] [place] [address] documented as of this encounter Visit Diagnoses Not on filedocumented in this encounter Care Teams Food And Beverage Assistant Manager Relationship Specialty Start Date End Date Juarez Griffin MD [address] [facility] [address] [place] [address] PCP - General Internal Medicine 05/30/23 documented as of this encounter
--- OUTSIDE RECORDS SUMMARY | 2025-06-17 14:50 | XMS_ITS | Encounter Summary ---
Author Organization [facility] Address [address] [place] [address] Care Team Providers Care Sheet Tester Name Role Phone Juarez Griffin MD Primary Care Provider [phone] Karen Naqvi DO Unavailable [phone] Encounter Details Date Type Department Care Team ([facility] st Contact Info) Description 02/12/2024 Orders Only External Location [address] [place] [address] Gennaro Cuevas MD [facility] [address] [place] [address] Social History Tobacco Use Types Packs/Day Years [...] Comment:+ 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 Source: [facility]. This patient will require contact precautions indefinitely. 04/01/2024 documented as of this encounter Care Teams Sheet Tester Relationship Specialty Start Date End Date Juarez Griffin MD [address] [place] [address] PCP - General 03/10/21 Karen Naqvi DO [facility] [address] [place] [address] Referring Physician Obstetrics and Gynecology 09/23/24 documented as of this encounter
--- OUTSIDE RECORDS SUMMARY | 2025-06-17 14:50 | XMS_ITS | Clinical Summary ---
Author Organization [employer] ([place], [place], [place], [place]) Address [address] [place] [address] Care Team Providers Care Steward/Stewardess Banquet Name Role Phone Juarez Griffin MD Primary Care Provider [phone] Allergies Active Allergy Reactions Criticality Noted Date [...] Do you speak a language other than Bahraini at [facility]? No 12/27/2023 [...] Completed 10/30/2023, Medical Devices Implanted Type Area Lane Attendant Device Identifier Shelf Expiration Date Model / Serial / Lot Loop Recorder LOOP RECORDER Left: Chest Insurance [facility] [facility] [place] Advance Directives For more information, please contact: [phone] * Full Code (Latest Code Status on File) Date Activated Date Inactivated Comments 12/27/2023 3:21 AM 12/30/2023 2:53 PM -Attempt Resus citation if person has no pulse and is not breathing. -If no pulse or not breathing attempt CPR/CODE. -Call Rapid Response if patient is in distress. Care Teams Steward/Stewardess Banquet Relationship Specialty Start Date End Date Juarez Griffin MD [address] [place] [address] PCP - General General Internal Medicine 12/30/23
--- OUTSIDE RECORDS SUMMARY | 2025-06-17 14:50 | XMS_ITS | Encounter Summary ---
Author Organization [facility] Address [address] [place] [id number] Care Team Providers Care Manager Target Name Role Phone Juarez Griffin MD Primary Care Provider [phone] Encounter Details Date Type Department Care Team (Late st Contact Info) Description 05/03/2025 Patient rounding ([place] only) [facility] CARDIOLOGY [address] [place] [address] Yaneth Ugarte MD [address] [place] [address] Social History Tobacco Use Types Packs/Day Years Used Date Smoking Tobacco: Never Passive Smoke Exposure: Never Smokeless Tobacco: Never Alcohol Use Standard Drinks/Week Comments Not Currently 0 (1 standard drink = 0.6 oz pur e alcohol) Maybe 3 drinks annually [facility] Utilities Answer Date Recorded In the past 12 months has [employer], gas, oil, or water [employer] threatened to shut off services in your [...] and heating? Not hard at all 04/16/2024 [facility] of Occupat ional Health - Occupational Stress [...] or training? Not on file Preferred Language Romansh 02/25/2025 PHQ-2 Answer Date Recorded Retired PHQ-9: [...] is Landy Alonzo and I am the Vascular Manager for [facility] Cardiology [facility]. I [...] your first visit to us as a [facility] facility? In the next few days, you will be receiving a Patient Experience Survey. Thank you for taking the time to answer a few questions today. I hope you have a good day. documented in this encounter Plan of Treatment Upcoming Encounters Date Type Department Care Team (Late st Contact Info) Description 07/01/2025 1:00 PM EDT Appointment [facility] ULTRASOUND AT [place] [address] [place] [address] 07/01/2025 2:00 PM EDT Appointment [facility] [address] AT [place] [address] [place] [address] 07/06/2025 1:00 PM EDT Office Visit [facility] UROLOGY [address] [place] [address] Teressa Finley, MEMBER OF CONGRESS [address] [place] [address] 11/01/2025 1:30 PM EST Office Visit [facility] CARDIOLOGY [address] [place] [address] Yaneth Ugarte MD [address] [place] [address] documented as of this encounter Visit Diagnoses Not on filedocumented in this encounter Care Teams Manager Target Relationship Specialty Start Date End Date Juarez Griffin MD [address] [facility] [address] [facility] [address] [place] [address] PCP - General Internal Medicine 05/30/23 documented as of this encounter
--- OUTSIDE RECORDS SUMMARY | 2025-06-17 14:50 | XMS_ITS | Clinical Summary ---
Author Organization [facility] Address [address] [place] [address] Care Team Providers Care Dye House Hand Name Role Phone Juarez Griffin MD Primary Care Provider [phone] Karen Naqvi DO Unavailable [phone] Allergies Active Allergy Reactions Criticality Noted Date [...] Comments Diabetes Father Wallace Heart disease Father Linneus Hypertension Father Wallace Dementia Mother Marzena Hypertension Mother Marzena Cancer Mother's Brother Lino Heart disease Mother's Brother Lino Diabetes insipidus Other 1 Hypertension Other 2 Lupus Other 3 Cancer Paternal Grandfather Unknown Anesthesia problems Sister Marta Diabetes Sister Marta Heart disease Sister Marta Hypertension Sister Marta Relation Name Status Comments Father Linneus Mother Marzena Mother's Brother Lino Other 1 [...] drink 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[employer]) to steady your nerves or to get [...] PPSV23) 11/01/2021 09/06/2021 [facility]-Breast Cancer Screening 2023 [id number] Vaccine (3 - season) 2024 10/07/2022, 08/21/2021 [...] this topic Medical Devices Implanted Type Area Medical Assistant Secretary Device Identifier Shelf Expiration Date Model / Serial / Lot Stent Ureteral Double Pigtail Pos 6fr 24cm - [id number] - [id number] Implanted:Qty: 1 on 04/11/2024 by Harvey Macdonald MD at [facility] Stent Right: [employer]-[id number] 01/02/2026 [id number] / [id number] / [id number] Loop Recorder-2016 Implanted:04/28 (Quantity not on file) [...] ORDERABLES Final Re sult [facility] [address] [place] [address] * Hepatitis C Antibody - ED (04/10/2024 6:11 PM EDT) Hepatitis C Antibody Negative Negative 04/10/2024 7:24 PM EDT [facility] Blood Venous blood specimen / Unknown Venipuncture / Unknown 04/10/2024 6:11 PM EDT 04/10/2024 6:26 PM EDT Susan Mcclure MD LAB BLOOD ORDERABLES Final Re sult Performing Organization Address City/[facility] de Phone Number [facility] [address] [place] [address] * (ABNORMAL) Hemoglobin A1c (04/10/2024 6:11 PM [...] Adults <6.0% Children and Adolescents <7.5% Source: [place] Diabetes Association. Standards of medical care in diabetes,2017. Diabetes Care.2017:40 (suppl 1):S1-S135. HbA1c assay performed by an ion-exchange chromatography method that is certified traceable to the DCCT. Joselito Berrios MD LAB BLOOD ORDERABLES Final Re sult Performing Organization Address 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 Source: [facility]. This patient will require contact precautions indefinitely. 04/01/2024 Insurance [address] [place] [id number] [facility] MED[facility] Advance Directives * Full Code (Latest Code Status on File) Date Activated Date Inactivated Comments 04/11/2024 10:12 AM 04/12/2024 3:22 PM Question Answer Comments Patient has decision-making capacity? Yes Care Teams Dye House Hand Relationship Specialty Start Date End Date Juarez Griffin MD [address] [facility] [address] [place] [address] PCP - General 03/10/21 Karen Naqvi DO [address] [facility] [address] [place] [address] Referring Physician Obstetrics and Gynecology 09/23/24
--- OUTSIDE RECORDS SUMMARY | 2025-06-17 14:50 | XMS_ITS | Referral Summary ---
Author Organization [employer] ([place], [place], [place], [place]) Address [address] [place] [address] Care Team Providers Care Automation Tech Name Role Phone Juarez Griffin MD Primary Care Provider [phone] Allergies Active Allergy Reactions Criticality Noted Date [...] Do you speak a language other than Arabic at [facility]? No 12/27/2023 Do you want help [...] on file Medical Devices Implanted Type Area Scout Device Identifier Shelf Expiration Date Model / Serial / Lot Loop Recorder LOOP RECORDER Left: Chest Insurance [facility] [place] [id number] [facility] Advance Directives For more information, please contact: [phone] * Full Code (Latest Code Status on File) Date Activated Date Inactivated Comments 12/27/2023 3:21 AM 12/30/2023 2:53 PM -Attempt Resus citation if person has no pulse and is not breathing. -If no pulse or not breathing attempt CPR/CODE. -Call Rapid Response if patient is in distress. Care Teams Automation Tech Relationship Specialty Start Date End Date Juarez Griffin MD [address] [place] [id number] PCP - General General Internal Medicine 12/30/23
--- OUTSIDE RECORDS SUMMARY | 2025-06-17 14:50 | XMS_ITS | Encounter Summary ---
[facility] Address [address] [place] [address] Care Team Providers Care Casting Machine Operator Automatic Name Role Phone Juarez Griffin MD Primary Care Provider [phone] Encounter Details Date Type Department Care Team (Late st Contact Info) Description 05/11/[address] [facility] CARDIOLOGY [address] [place] [address] Shell Diaz RegSched Rep Social History Tobacco Use Types Packs/Day Years Used Date Smoking Tobacco: Never Passive Smoke Exposure: Never Smokeless Tobacco: Never Alcohol Use Standard Drinks/Week Comments Not Currently 0 (1 standard drink = 0.6 oz pur e alcohol) Maybe 3 drinks annually [facility] Utilities Answer Date Recorded In the past 12 months has [employer], gas, oil, or water company threatened [...] at all 04/16/2024 [facility] of Occupat ional Health - Occupational Stress [...] or training? Not on file Preferred Language Faroese 02/25/2025 PHQ-2 Answer Date Recorded Retired PHQ-9: [...] Info) Description 07/01/2025 1:00 PM EDT Appointment [facility] ULTRASOUND AT [place] [address] [place] [address] 07/01/2025 2:00 PM EDT Appointment [facility] [address] AT [place] [address] [place] [address] 07/06/2025 1:00 PM EDT Office Visit [facility] UROLOGY [address] [id number] Teressa Finley, PRODUCT SUPPORT ENGINEER [address] [facility] [address] [place], [place] [address] 11/01/2025 1:30 PM EST Office Visit [facility] CARDIOLOGY [address] [place] [address] Yaneth Ugarte MD [address] [place] [address] documented as of this encounter Visit Diagnoses Not on filedocumented in this encounter Care Teams Casting Machine Operator Automatic Relationship Specialty Start Date End Date Juarez Griffin MD [address] [facility] [address] [facility] [address] [place] [address] PCP - General Internal Medicine 05/30/23 documented as of this encounter
--- OUTSIDE RECORDS SUMMARY | 2025-06-17 14:50 | XMS_ITS | Clinical Summary ---
Author Organization [facility] Address [address] [place] [id number] Care Team Providers Care Spring Tacker Name Role Phone Juarez Griffin MD Primary Care Provider [phone] Allergies Active Allergy Reactions Criticality Noted Date [...] s:Nephrolithias is,Recurrent UTI Call 911. Don't prime. Panther in 1 nostril for overdose. Repeat in [...] Type Department Care Team Description 05/11/2025 Telephone [facility] [address] [address] Shell Diaz RegSched Rep 05/10/2025 Results Follow-Up [facility] [address] [address] Yaneth Ugarte MD 05/03/2025 1:30 PM EDT Office Visit [facility] [address] [address] Yaneth Ugarte MD Hypercholesterolemia (Primary Dx); PVC (premature ventricular contraction); Precordial chest pain; Swelling of lower extremity 05/03/2025 Patient rounding ([facility] only) [facility] [address] [address] Yaneth Ugarte MD 05/03/2025 Travel 04/29/2025 Telephone [facility] [address] [address] Yaneth Ugarte MD 04/05/2025 9:00 AM EDT Procedure visit [facility] [address] [facility] [address] [address] Demarcus Ames MD Staghorn calculus (Primary Dx) 04/05/2025 Travel 04/01/2025 Telephone [facility] [address] [facility] [address] [address] TODD - CLINICAL 03/31/2025 10:26 AM EDT Anesthesia Event [facility] OR [address] [place] [address] Edgardo Ryan, SANDRA 03/31/2025 10:10 AM EDT - 03/31/2025 12:11 PM EDT Surgery [facility] OR [address] [place] [address] Demarcus Ames MD Percutaneous nephrolithotomy with stent placement left, cystoscopy 03/31/2025 10:05 AM EDT Anesthesia Event Converted [facility] ANESTHESIA [address] [place] [address] 03/31/2025 8:29 AM EDT - 03/31/2025 2:15 PM EDT Hospital Encounter [facility] OR [address] [place] [address] Demarcus Ames MD Staghorn calculus Discharge Disposition: Home or Self Care 03/31/2025 Telephone [facility] [address] [facility] [address] [address] TODD - POST OP FOLLOW UP 03/31/2025 Telephone [facility] [address] [place] [address] [address] TODD - SCHEDULING 03/31/2025 Travel 03/25/2025 Telephone [facility] [address] [facility] [address] [address] Demarcus Ames MD 03/24/2025 1:00 PM EDT Pre-Admission Testing [facility] PREADMISSION T [address] [place] [address] 03/24/2025 Travel 03/17/2025 Telephone [facility] [address] [place] [address] Demarcus Ames MD from Last [...] pur e alcohol) Maybe 3 drinks annually [facility] Utilities Answer Date Recorded In the past 12 months has [employer], oil, or water What's in My Handbag threatened to shut off services in your [...] and heating? Not hard at all 04/16/2024 [facility] [place] of Occupat ional Health - Occupational Stress [...] or training? Not on file Preferred Language Costa Rican 02/25/2025 PHQ-2 Answer Date Recorded Retired PHQ-9: [...] Info) Description 07/01/2025 1:00 PM EDT Appointment [facility] [place] [address] [place] [address] 07/01/2025 2:00 PM EDT Appointment [facility] CT AT [place] [address] [place] [address] 07/06/2025 1:00 PM EDT Office Visit [facility] [address] [place] [address] Teressa Finley, DYE MAKER [address] [place] [address] 11/01/2025 1:30 PM EST Office Visit [facility] [address] [address] Yaneth Ugarte MD [address] [place] [address] Health Maintenance Due Date Last Done Comments [...] Completed 04/10/2024 Medical Devices Implanted Type Area Combiner Device Identifier Shelf Expiration Date Model / Serial / Lot Kt Seal Hemos Abs Floseal Matrx Fast/Prep 5ml - [id number] Implanted:Qty : 1 on 04/15/2024 by Demarcus Ames MD at [facility] Implant Right: Kidney [employer] 05/29/2025 [id number] / / [id number] Clip Ligat Vasc Horizon Steve Caldera Daniel 6ct - [id number] Implanted:Qty : 2 on 03/04/2025 by Zac Mckeon MD at [facility] Implant N/A: Neck [employer] [id number] / / Clip Ligat Vasc Horizon Ti Sm Yel 6ct - [id number] Implanted:Qty : 4 on 03/04/2025 by Zac Mckeon MD at [facility] Implant N/A: Neck [employer] [id number] / / Hemost Abs Surgicel Orig 4x8in Strl - [id number] Implanted:Qty : 1 on 03/04/2025 by Zac Mckeon MD at [facility] Implant N/A: Neck [employer] J [id number] / / Kt Seal Hemos Abs Floseal Matrx 1.5/Fast/Prep 5000/Iu 5ml - [id number] Implanted:Qty : 1 on 03/31/2025 by Demarcus Ames MD at [facility] Implant Left: Back [employer] 08/13/2026 [id number] / / [id number] Stnt Percuflx No Gw 7x26 - [id number] Implanted:Qty : 1 on 04/15/2024 by Demarcus Ames MD at [facility] Stent Right: Kidney [employer] 09/06/2026 [id number] / / [id number] Stnt Percuflx No Gw 7x26 - [id number] Implanted:Qty : 1 on 03/31/2025 by Demarcus Ames MD at [facility] Stent Left: Back [employer] 08/10/2027 [id number] / / [id number] Procedures Procedure Name Priority Date/Time Associated Diagnosis [...] On Abnormal To Free T4 (05/07/2025) Blood Yaneth Ugarte MD LAB BLOOD ORDERABLES Final R esult Performing Organization Address [facility] Co de Phone Number [facility]
[address] [place] [address], [place] [phone] * Magnesium (05/07/2025) Blood Yaneth Ugarte MD LAB BLOOD ORDERABLES Final R esult Performing Organization Address [facility] Co de Phone Number [facility]
[address] [place] [address], [place] [phone] * Lipid Panel (05/07/2025) Blood Yaneth Ugarte MD LAB BLOOD ORDERABLES Final R esult Performing Organization Address [facility] Co de Phone Number [facility]
[address] [place] [address], [place] [phone] * Comprehensive Metabolic Panel (05/07/2025) Blood Yaneth Ugarte MD LAB BLOOD ORDERABLES Final R esult Performing Organization Address [facility] Co de Phone Number [facility]
[address] [place] [address], [place] [phone] * ECG 12-LEAD (05/03/2025 2:22 PM EDT) [...] Chronic chest pain followed by Dr. Ugarte [facility] 03/05/24 Chronic diastolic (congestive) heart failure [...] 03/04/2025 Procedure: PARATHYROIDECTOMY; Surgeon: Zac Mckeon MD;Location: [facility]; Service: General; Laterality: N/A; PERCUTANEOUS NEPHROSTOLITHOTOMY Right 04/15/2024 Procedure: CYSTOSCOPY & BALLOON OCCLUSION CATHETER PLACEMENT, PRIMARYPERCUTANEOUS ACCESS, NEPHROSTOLITHOTOMY PERCUTANEOUS, WITH STENT EXCHANGE;Surgeon: Demarcus Ames MD; Location: [facility]; Service:Urology; Laterality: Right; PERCUTANEOUS NEPHROSTOLITHOTOMY Left 03/31/2025 Procedure: Percutaneous nephrolithotomy with stent placement left,cystoscopy; Surgeon: Demarcus Ames MD; Location: [facility] OR;Service: Urology; Laterality: Left; TUBAL ABDOMINAL LIGATION [...] on file. Laura Ugarte MD Cardiology and [facility] 05/03/2025 Please note that this [...] No organisms seen 04/03/2025 9:18 AM EDT [facility] Calculus Left kidney structure / Unknown [...] TOMASA <=1 ug/ml: Susceptible Proteus mirabilis Levofloxacin TMOASA >=8 ug/ml: Resistant Proteus mirabilis Piperacillin + Tazobactam TOMASA <=4 ug/ml: Susceptible Proteus mirabilis Tetracycline TOMASA >=16 ug/ml: Resistant Proteus mirabilis Trimethoprim + Sulfamethoxazole TOMASA <=20 ug/ml: Susceptible Comment:With the exception o f urinary-sourced infections, aminoglycosides should not be used as monotherapy. Demarcus Ames MD MICROBIOLOGY - GENERAL OR DERABLES Final Result [facility]
[address] [place] [address], [place] [phone] [facility]
[address] [place] [address], [place] [phone] * STONE ANALYSIS - Calculus, Kidney, Left [...] - 04/14/2025 10:06 PM EDT Performed at: [address] [place] [id number] Kiln Car Unloader: Mariam Turner PhD, Phone: [phone] us Demarcus Ames MD BODY FLUIDS AND STOOLS OR DERABLES Final Result [facility] [address] [place] [address], * BH AN ETT AIRWAY (03/31/2025 10:40 AM EDT) Narrative Edgardo Ryan CRNA - 03/31/2025 10:40 AM EDT Edgardo Ryan CRNA 03/31/2025 10:41 AM Airway Reason: elective Date/Time: 03/31/2025 10:32 AM Airway not difficult General Information and Staff Patient location during procedure: OR KEYPUNCHER/CAA: Edgardo Ryan CRNA Indications and Patient Condition [...] POC Glucose Once (03/31/2025 9:12 AM EDT) [facility] Signature Glucose 200(H) 70 - 130 mg/dL 03/31/2025 9:33 AM EDT [facility] Comment:Serial Number: [id number] Blood 03/31/2025 9:12 AM EDT 03/31/2025 9:33 AM EDT Demarcus Ames MD POINT OF CARE TEST ORDERA BLES Final Result [facility]
[address] [place] [address], [place] [phone] * Type & Screen (03/31/2025 9:03 AM EDT) ABO Type AB 03/31/2025 10:05 AM EDT [facility]OR[facility]ORY RH type Positive 03/31/2025 10:05 AM EDT [facility] Antibody Screen Negative 03/31/2025 10:05 AM EDT [facility] T&S Expiration Date 04/03/2025 11:59:59 PM 03/31/2025 10:05 AM EDT [facility] Blood Venipuncture / Unknown 03/31/2025 9:03 AM EDT 03/31/2025 9:09 AM EDT Demarcus Ames MD BLOOD BANK TEST ORDERABLE S Edited Result - Final [facility]
[address] [place] [address], * Telemetry Scan (03/31/2025) [facility] ECG ORDERABLES Final Result * CBC (No Diff) (03/24/2025 1:13 PM EDT) WBC 10.22 3.40 - 10.80 10*3/mm3 03/24/2025 3:17 PM EDT [facility] RBC 5.25 3.77 - 5.28 10*6/mm3 03/24/2025 3:17 PM EDT [facility] Hemoglobin 14.8 12.0 - 15.9 g/dL 03/24/2025 3:17 PM EDT [facility] Hematocrit 45.0 34.0 - 46.6 % 03/24/2025 3:17 PM EDT [facility] MCV 85.7 79.0 - 97.0 fL 03/24/2025 3:17 PM EDT [facility] MCH 28.2 26.6 - 33.0 pg 03/24/2025 3:17 PM EDT [facility] MCHC 32.9 31.5 - 35.7 g/dL 03/24/2025 3:17 PM EDT [facility] RDW 13.8 12.3 - 15.4 % 03/24/2025 3:17 PM EDT [facility] RDW-SD 42.9 37.0 - 54.0 fl 03/24/2025 3:17 PM EDT [facility] MPV 11.2 6.0 - 12.0 fL 03/24/2025 3:17 PM EDT [facility] Platelets 326 140 - 450 10*3/mm3 03/24/2025 3:17 PM EDT [facility] Blood Line / Unknown 03/24/2025 1: 13 PM EDT 03/24/2025 3:13 PM EDT us Demarcus Ames MD LAB BLOOD ORDERABLES Maria E l Result [facility]
[address] [place] [id number], * (ABNORMAL) Basic Metabolic Panel (03/24/2025 1:13 PM EDT) Glucose 120(H) 65 - 99 mg/dL 03/24/2025 3:42 PM EDT [facility] BUN 16.0 6.0 - 20.0 mg/dL 03/24/2025 3:42 PM EDT [facility] Creatinine 0.90 0.57 - 1.00 mg/dL 03/24/2025 3:42 PM EDT [facility] Sodium 140 136 - 145 mmol/L 03/24/2025 3:42 PM EDT [facility] Potassium 4.1 3.5 - 5.2 mmol/L 03/24/2025 3:42 PM EDT [facility] Chloride 97(L) 98 - 107 mmol/L 03/24/2025 3:42 PM EDT [facility] CO2 26.5 22.0 - 29.0 mmol/L 03/24/2025 3:42 PM EDT [facility] Calcium 9.7 8.6 - 10.5 mg/dL 03/24/2025 3:42 PM EDT [facility] BUN/Creatinine Ratio 17.8 7.0 - 25.0 03/24/2025 3:42 PM EDT [facility] Anion Gap 16.5(H) 5.0 - 15.0 mmol/L 03/24/2025 3:42 PM EDT [facility] eGFR 77.6 >60.0 mL/min/1.7 3 03/24/2025 3:42 PM EDT [facility] Blood Line / Unknown 03/24/2025 1: 13 PM EDT 03/24/2025 3:13 PM EDT [facility] - 03/24/2025 3:42 PM EDT [...] LAB BLOOD ORDERABLES Maria E l Result [facility]
[address] [place] [address], * (ABNORMAL) Urinalysis, Microscopic Only - Urine, Clean Catch (03/24/2025 1:08 PM EDT) RBC, UA 3-5(A) None Seen, 0-2 /HPF 03/24/2025 3:45 PM EDT [facility] WBC, UA 6-10(A) None Seen, 0-2 /HPF 03/24/2025 3:45 PM EDT [facility] Bacteria, UA Trace(A) None Seen /HPF 03/24/2025 3:45 PM EDT [facility] Squamous Epithelial Cells, UA 0-2 None Seen, 0-2 /HPF 03/24/2025 3:45 PM EDT [facility] Hyaline Casts, UA 0-2 None Seen /LPF 03/24/2025 3:45 PM EDT [facility] Methodology Manual Light Microscopy 03/24/2025 3:45 PM EDT [facility] Urine Urine specimen obtained by clean catch procedure / Unknown Collection / Unknown 03/24/2025 1:08 PM EDT 03/24/2025 3:12 PM EDT Demarcus Ames MD URINE ORDERABLES Final Re sult [facility]
[address] [place] [id number], * (ABNORMAL) Urinalysis With Culture If Indicated - Urine, Clean Catch (03/24/2025 1:08 PM EDT) Color, UA Yellow Yellow, Straw 03/24/2025 3:31 PM EDT [facility] Appearance, UA Clear Clear 03/24/2025 3:31 PM EDT [facility] pH, UA 5.5 5.0 - 8.0 03/24/2025 3:31 PM EDT [facility] Specific [place], UA 1.010 1.005 - 1.030 03/24/2025 3:31 PM EDT [facility] Glucose, UA >=1000 mg/dL (3+)(A) Negative 03/24/2025 3:31 PM EDT [facility] Ketones, UA Negative Negative 03/24/2025 3:31 PM EDT [facility] Bilirubin, UA Negative Negative 03/24/2025 3:31 PM EDT [facility] Blood, UA Small (1+)(A) Negative 03/24/2025 3:31 PM EDT [facility] Protein, UA Negative Negative 03/24/2025 3:31 PM EDT [facility] Leuk Esterase, UA Small (1+)(A) Negative 03/24/2025 3:31 PM EDT [facility] Nitrite, UA Negative Negative 03/24/2025 3:31 PM EDT [facility] Urobilinogen, UA 0.2 E.U./dL 0.2 - 1.0 E.U./dL 03/24/2025 3:31 PM EDT [facility] Urine Urine specimen obtained by clean catch procedure / Unknown Collection / Unknown 03/24/2025 1:08 PM EDT 03/24/2025 3:12 PM EDT [facility] - 03/24/2025 3:31 PM EDT In absence of clinical symptoms, the presence of pyuria, bacteria, and/or nitrites on the urinalysis result does not correlate with infection. Demarcus Ames MD URINE ORDERABLES Final Re sult [facility]
[address] [place] [id number], * Urine Culture - Urine, Urine, Clean Catch (03/24/2025 1:08 PM EDT) Urine Culture <25,000 CFU/mL Normal Urogenital Martina TOMASA 03/25/2025 11:10 AM EDT [facility] Urine Urine specimen obtained by clean catch procedure / Unknown Collection / Unknown 03/24/2025 1:08 PM EDT 03/24/2025 3:12 PM EDT [facility] - 03/25/2025 11:10 AM EDT Colonization of the urinary tract without infection is common. Treatment is discouraged unless the patient is symptomatic, , or undergoing an invasive urologic procedure. us Demarcus Ames MD MICROBIOLOGY - GENERAL OR DERABLES Final Result [facility]
[address] [place] [address], [place] [phone] from Last 3 Months Insurance [facility] [employer] [facility] Care Teams Spring Tacker Relationship Specialty Start Date End Date Juarez Griffin MD [address] [facility] [address] [place] [address] PCP - General Internal Medicine 05/30/23
--- OUTSIDE RECORDS SUMMARY | 2025-06-17 14:50 | XMS_ITS | Encounter Summary ---
[facility] Address [address] [place] [address] Care Team Providers Care Electrical Maintenance Supervisor Name Role Phone Juarez Griffin MD Primary Care Provider [phone] Reason for Visit * Reason Onset Date Comments DR AMES - CLINICAL 04/01/2025 Encounter Details Date Type Department Care Team (Late st Contact Info) Description 04/01/2025 Telephone [facility] UR[facility] [address] [facility] [address] [address] Demarcus Ames MD [address] [address] [address] AMES - CLINICAL Social History Tobacco Use Types Packs/Day Years Used Date Smoking Tobacco: Never Passive Smoke Exposure: Never Smokeless Tobacco: Never Alcohol Use Standard Drinks/Week Comments Not Currently 0 (1 standard drink = 0.6 oz pur e alcohol) Maybe 3 drinks annually [facility] Utilities Answer Date Recorded In the past 12 months has [employer], [employer], oil, or water [employer] threatened to shut off services in your [...] and heating? Not hard at all 04/16/2024 [facility] [place] of Occupat ional Health - Occupational Stress [...] or training? Not on file Preferred Language Bangladeshi 02/25/2025 PHQ-2 Answer Date Recorded Retired PHQ-9: [...] OUT TO DISCUSS BEST NUMBER IS CELL [phone] documented in this encounter Plan of Treatment Upcoming Encounters Date Type Department Care Team (Late st Contact Info) Description 07/01/2025 1:00 PM EDT Appointment [facility] [place] [address] [place] [address] 07/01/2025 2:00 PM EDT Appointment [facility] [place] [address] [facility] [place] [address] 07/06/2025 1:00 PM EDT Office Visit [facility] [address] [place] [address] Teressa Finley, DIRECTOR MEDICAID [address] [facility] [address] [facility] [address] [place] [address] 11/01/2025 1:30 PM EST Office Visit [facility] CARDIOLOG[facility] [address] [place] [address] Yaneth Ugarte MD [address] [place] [address] documented as of this encounter Visit Diagnoses Not on filedocumented in this encounter Care Teams Electrical Maintenance Supervisor Relationship Specialty Start Date End Date Juarez Griffin MD [address] [facility] [address] [place] [address] PCP - General Internal Medicine 05/30/23 documented as of this encounter
--- OUTSIDE RECORDS SUMMARY | 2025-06-17 14:50 | XMS_ITS | Encounter Summary ---
[facility] Organization [facility] Address [address] [place] [address] Care Team Providers Care Track Laying Supervisor Name Role Phone Juarez Griffin MD Primary Care Provider [phone] Reason for Visit * Reason Onset Date Comments DR AMES - POST OP FOLLOW UP 03/31/2025 Encounter Details Date Type Department Care Team (Late st Contact Info) Description 03/31/2025 Telephone [facility] [address] [facility] [address] [address] Demarcus Ames MD [address] [address] [address] AMES - POST OP FOLLOW UP Social History Tobacco Use Types Packs/Day Years Used Date Smoking Tobacco: Never Passive Smoke Exposure: Never Smokeless Tobacco: Never Alcohol Use Standard Drinks/Week Comments Not Currently 0 (1 standard drink = 0.6 oz pur e alcohol) Maybe 3 drinks annually [facility] Utilities Answer Date Recorded In the past 12 months has [employer], gas, oil, or water [employer] threatened to shut off services in your [...] and heating? Not hard at all 04/16/2024 [facility] [place] [facility] - [facility]ational Stress [...] or training? Not on file Preferred Language Italian 02/25/2025 PHQ-2 Answer Date Recorded Retired PHQ-9: [...] 9:18 AM EDT Cathy Curtis RN * [place] Suicide Severity Rating Scale (Screener/Recent Self-Report) Question Answer Date of Assessment Author 6. Suicidal Behavior (Lifetime) No 9:18 AM EDT Vandana Curtis RN documented as of this encounter Miscellaneous Notes * Telephone Encounter - Emily Mendez CMA - 03/31/2025 2:54 PM EDT Pt scheduled with hotel front desk clerk JUAN MIGUEL Christianson * Telephone Encounter - [...] Appointment [facility] [place] [address] [place] [address] 07/01/2025 2:00 PM EDT Appointment [facility] [place] [address] [place] [address] 07/06/2025 1:00 PM EDT Office Visit [facility] [address] [place] [address] Teressa Finley APRN [address] [email or web address] [address] [place] [address] 11/01/2025 1:30 PM EST Office Visit [facility] CARDI[facility] [address] [place] [address] Yaneth Ugarte MD [address] [place] [address] documented as of this encounter Visit Diagnoses Not on filedocumented in this encounter Care Teams Track Laying Supervisor Relationship Specialty Start Date End Date Juarez Griffin MD [address] [facility] [address] [place] [id number] PCP - General Internal Medicine 05/30/23 documented as of this encounter
--- OUTSIDE RECORDS SUMMARY | 2025-06-17 14:50 | XMS_ITS | Clinical Summary ---
Author Organization [facility] Address [address] [facility] [address] [place] [address] Phone Care Team Providers Care Ehr Trainer Name Role Phone Zofia Perkins Unavailable Unavailable Conditions or Problems Problem Name Problem Code Onset Date Status Entry Date Provider Comment Standard Description Annotate Acute Pyelonephritis 19506290 (SNOMED CT) 01/07 Active 01/07 Malina Ames Acute pyelonephritis Obstructive uropathy with infection N13.6 (ICD-10-C M) 01/07 Active 01/07 Malina Ames Pyonephrosis Neutrophilic leukemoid reaction D72.823 (ICD-10-C M) 01/07 Active 01/07 Malina Ames Leukemoid reaction COPD 26558905 (SNOMED CT) 01/07 Active 01/07 Malina Ames Chronic obstructive pulmonary disease Morbid obesity due to excess calories E66.01 (ICD-10-C M) 01/07 Active 01/07 Malina Ames Morbid (severe) obesity due to excess calories DM Type II E11.9 (ICD-10-C M) 01/07 Active 01/07 Malina Ames Type 2 diabetes mellitus without complications Benign hypertensive heart disease with chronic diastolic heart failure (I50.32) 32592076 (SNOMED CT) 01/07 Active 01/07 Malina Ames Benign hypertension Medications Medication Instructions Start Date Stop Date Generic Name [facility] Provider FOSFOMYCIN TROMETHAMINE 3 GM PACK Take 1 packet by mouth as directed take 1 packet every 3-4 days (2 times weekly) fosfomycin tromethamine 89195757920 Calvin Villarreal MD PREDNISONE 20 MG TABS prednisone 75429859872 Milly Jabierbrianne VITAMIN C 500 MG CAPS twice a day ascorbic acid (vitamin c) 97532658072 Milly Mosquera HIPREX 1 GM TABS Take 1 tablet by mouth twice a day 02/18 methenamine hippurate 91667051111 Calvin Villarreal MD INDOMETHACIN 50 MG CAPS Take 1 capsule by mouth three times a day indomethacin 89948476456 Linda De Leon SUCRALFATE 1 GM TABS Take 1 tablet by mouth four times a day sucralfate 81933671134 Linda De Leon BUMETANIDE 2 MG TABS Take 1 tablet by mouth twice a day bumetanide 17662871194 Linda De Leon PRAVASTATIN SODIUM 10 MG TABS Take 1 tablet by mouth every night pravastatin 07622373131 Linda De Leon ENTRESTO 24-26 MG TABS Take 1 tablet by mouth twice a day sacubitril-valsa rtan 58245109240 Linda De Leon VENTOLIN HFA 108 (90 Base) MCG/ACT AERS Inhale 2 puff by mouth every four to six hours as needed albuterol sulfate 74645920373 Linda De Leon ADVAIR DISKUS 250-50 MCG/ACT AEPB Inhale 1 puff twice a day fluticasone propion-salmeter ol 97029765783 Linda De Leon OMEPRAZOLE 20 MG CPDR Take 1 capsule by mouth once a day omeprazole 03929603527 Linda De Leon METFORMIN HCL 500 MG TABS Take 1 tablet by mouth twice a day metformin 86330411936 Linda De Leon FARXIGA 10 MG TABS Take 10 mg by mouth once a day dapagliflozin propanediol 43625394945 Linda De Leon IBUPROFEN (IBUPROFEN) 800 MG TABS Take 1 tablet by mouth every six hours as needed IBUPROFEN Linda De Leon TIZANIDINE HCL 4 MG TABS Take 1 tablet by mouth as needed tizanidine 51483002699 Linda De Leon TRAMADOL HCL 50 MG TABS every twelve hours tramadol 18145561366 Linda De Leon NITROGLYCERIN 0.[address] 1 tablet under tongue as needed nitroglycerin 72049746573 Linda Moises ONDANSETRON HCL 4 MG TABS Take 1 tablet by mouth every eight hours as needed ondansetron hcl 69231731852 Linda Moises SPIRONOLACTONE 50 MG TABS Take 1 tablet by mouth once a day spironolactone 83807410318 Linda De Leon SITagliptin (JANUVIA) 25 MG tablet Take 1 tablet by mouth once a day JANOLIVER De Leon NEBIVOLOL HCL 5 MG TABS Take 1 tablet by mouth once a day nebivolol 50368104773 Jazieltyree De Leon GLYXAMBI 10-5 MG TABS Take 1 tablet by mouth once a day empagliflozin-li nagliptin 22008047354 Linda De Leon VENTOLIN HFA 108 (90 Base) MCG/ACT AERS INHALE TWO PUFFS BY MOUTH EVERY 4 TO 6 HOURS NEEDED 01/19 albuterol sulfate 07292426862 QIE qieuser TRAMADOL HCL 50 MG TABS Every 12 (Twelve) Hours. 01/19 tramadol 28399044848 QIE qieuser TIZANIDINE HCL 4 MG TABS Take 1 tablet by mouth As Needed. 01/19 tizanidine 18293925835 QIE qieuser SUCRALFATE 1 GM TABS Take 1 tablet by mouth 4 (Four) Times a Day. 01/19 sucralfate 28150792769 QIE qieuser SPIRONOLACTONE 50 MG TABS TAKE ONE TABLET BY MOUTH EVERY DAY 01/19 spironolactone 20651229424 QIE qieuser SITagliptin (JANUVIA) 25 MG tablet Take 1 tablet by mouth Daily. 01/19 JANUVIA QIE qieuser PRAVASTATIN SODIUM 10 MG TABS TAKE ONE TABLET BY MOUTH EVERY DAY AT BEDTIME 01/19 pravastatin 07881497771 QIE qieuser ONDANSETRON HCL 4 MG TABS Take 1 tablet by mouth Every 8 (Eight) Hours As Needed. 04/27 ondansetron hcl 92772101892 QIE qieuser OMEPRAZOLE 20 MG CPDR TAKE ONE CAPSULE BY MOUTH EVERY DAY 04/27 omeprazole 10217557164 QIE qieuser O2 (OXYGEN) 2 L by Alternating Nares route Every Night. OXYGEN QIE qieuser NITROGLYCERIN 0.[address] 1 tablet under the tongue As Needed for Chest Pain. 01/19 nitroglycerin 52970112891 QIE qieuser NEBIVOLOL HCL 5 MG TABS TAKE ONE TABLET BY MOUTH EVERY DAY 01/19 nebivolol 24307371245 QIE qieuser METFORMIN HCL 500 MG TABS Take 1 tablet by mouth 2 (Two) Times a Day. 01/19 metformin 61845281365 QIE qieuser IPRATROPIUM-ALBUT MIK 0.5-2.5 (3) MG/3ML SOLN ipratropium-albu terol 58625427219 QIE qieuser INDOMETHACIN 50 MG CAPS Take 1 capsule by mouth 3 (Three) Times a Day With Meals. 01/19 indomethacin 16868921152 QIE qieuser IBUPROFEN (IBUPROFEN) 800 MG TABS Take 1 tablet by mouth Every 6 (Six) Hours As Needed. 01/19 IBUPROFEN QIE qieuser ENTRESTO 24-26 MG TABS TAKE ONE TABLET BY MOUTH TWICE DAILY 01/19 sacubitril-valsa rtan 67418797987 QIE qieuser GLYXAMBI 10-5 MG TABS Take 1 tablet by mouth Daily. 01/19 empagliflozin-li nagliptin 13917783288 QIE qieuser FARXIGA 10 MG TABS Take 10 mg by mouth Daily. 01/19 dapagliflozin propanediol 76390451863 QIE qieuser BUMETANIDE 2 MG TABS TAKE ONE TABLET BY MOUTH TWICE DAILY 01/19 bumetanide 24023733642 QIE qieuser ADVAIR DISKUS 250-50 MCG/ACT AEPB Inhale 1 puff 2 (Two) Times a Day. 01/19 fluticasone propion-salmeter ol 55761746692 QIE qieuser CEFUROXIME AXETIL 500 MG TABS 1 tablet by mouth twice a day cefuroxime axetil 91334075527 Calvin Villarreal MD Medications Administered No information [...] smoking status SMOK STATUS Never smoker Toba accordion tuner smoking status MEDS REVIEW Done Documenta tion [...]
--- OUTSIDE RECORDS SUMMARY | 2025-06-17 14:50 | XMS_ITS | Encounter Summary ---
[facility] Organization [facility] Address [address] [place] [address] Care Team Providers Care Field Crop Farming Supervisor Name Role Phone Juarez Griffin MD Primary Care Provider [phone] Reason for Visit * Reason Onset Date Comments DR AMES - SCHEDULING 03/31/2025 Encounter Details Date Type Department Care Team (Late st Contact Info) Description 03/31/2025 Telephone [facility] UROLOGY [address] [facility] [address] [address] Demarcus Ames MD [address] [address] [address] AMES - SCHEDULING Social History Tobacco Use Types Packs/Day Years Used Date Smoking Tobacco: Never Passive Smoke Exposure: Never Smokeless Tobacco: Never Alcohol Use Standard Drinks/Week Comments Not Currently 0 (1 standard drink = 0.6 oz pur e alcohol) Maybe 3 drinks annually [facility] Utilities Answer Date Recorded In the past 12 months has [employer], oil, or water [employer] threatened to shut off services in your [...] and heating? Not hard at all 04/16/2024 [facility] [place] of Occupat ional Health - Occupational Stress [...] or training? Not on file Preferred Language Montenegrin 02/25/2025 PHQ-2 Answer Date Recorded Retired PHQ-9: [...] 9:18 AM EDT Cathy Curtis RN * [place] Suicide Severity Rating Scale (Screener/Recent Self-Report) Question Answer Date of Assessment Author 6. Suicidal Behavior (Lifetime) No 9:18 AM EDT Vandana Curtis RN documented as of this encounter Miscellaneous Notes * Telephone Encounter - Ashleigh Crowell - 03/31/2025 1:55 PM EDT Caller: LISSY VALDEZ Relationship to patient: SELF Best call back number: [phone] Chief complaint: PATIENT HAD SURGERY TODAY AND [...] [facility] [place] [address] [place] [address] 07/01/2025 2:00 PM EDT Appointment [facility] [place] [address] [place] [address] 07/06/2025 1:00 PM EDT Office Visit [facility] UROLOGY [address] [place] [address] Teressa Finley APRN [address] [place] [address] 11/01/2025 1:30 PM EST Office Visit [facility] CARDIOLOGY [address] [place] [address] Yaneth Ugarte MD [address] [place] [address] documented as of this encounter Visit Diagnoses Not on filedocumented in this encounter Care Teams Field Crop Farming Supervisor Relationship Specialty Start Date End Date Juarez Griffin MD [address] [place] [facility] [address] [place] [id number] PCP - General Internal Medicine 05/30/23 documented as of this encounter
--- OUTSIDE RECORDS SUMMARY | 2025-06-17 14:50 | XMS_ITS | Encounter Summary ---
Author Organization [facility] Address [address] [place] [id number] Care Team Providers Care Batch Tester Name Role Phone Juarez Griffin MD Primary Care Provider [phone] Encounter Details Date Type Department Care Team (Late st Contact Info) Description 04/16/2024 Retail Pharmacy Consultation [facility] [address] [place] [address] [facility] [address] [place], [place] [id number] Social History Tobacco Use Types Packs/Day Years Used Date Smoking Tobacco: Never Passive Smoke Exposure: Never Smokeless Tobacco: Never Alcohol Use Standard Drinks/Week Comments Yes 0 (1 standard drink = 0.6 oz pur e alcohol) rarely C Utilities Answer Date Recorded In the past 12 months has [employer], gas, oil, or water [employer] threatened to shut off services in your [...] heating? Not hard at all 04/16/2024 [facility] [place] of Occupat ional Health - Occupational Stress [...] GED or equivalent No 04/16/2024 Preferred Language Lithuanian 04/16/2024 PHQ-2 Answer Date Recorded Retired PHQ-9: [...] Info) Description 07/01/2025 1:00 PM EDT Appointment [facility] [place] [address] [place] [address] 07/01/2025 2:00 PM EDT Appointment [facility] [place] [address] [place] [address] 07/06/2025 1:00 PM EDT Office Visit [facility] UROLOGY [address] [address] Teressa Finley APRN [address] [address] 11/01/2025 1:30 PM EST Office Visit [facility] CARDIOLOGY [address] [place] [address] Yaneth Ugarte MD [address] [place] [address] documented as of this encounter Visit Diagnoses Not on filedocumented in this encounter Additional Health Concerns Infection Onset Date Last Indicated Resolved Time ESBL 04/01/2024 04/01/2024 03/03/2025 6:48 AM EDT documented as of this encounter Care Teams Batch Tester Relationship Specialty Start Date End Date Juarez Griffin MD [address] [place] [address] [place] [address] PCP - General Internal Medicine 05/30/23 documented as of this encounter
--- OUTSIDE RECORDS SUMMARY | 2025-06-17 14:50 | XMS_ITS | Encounter Summary ---
Author Organization [facility] Address [address] [place] [address] Care Team Providers Care Real Estate Legal Assistant Name Role Phone Juarez Griffin MD Primary Care Provider [phone] Encounter Details Date Type Department Care Team (Latest Contact Info) Description 05/03/2025 Travel Social History Tobacco Use Types Packs/Day Years Used Date Smoking Tobacco: Never Passive Smoke Exposure: Never Smokeless Tobacco: Never Alcohol Use Standard Drinks/Week Comments Not Currently 0 (1 standard drink = 0.6 oz pur e alcohol) Maybe 3 drinks annually [facility] Utilities Answer Date Recorded In the past 12 months has [employer], gas, oil, or water [employer] threatened to shut off services in your [...] Not hard at all 04/16/2024 [facility] [place] of Occupat ional Health - Occupational [...] or training? Not on file Preferred Language Telugu 02/25/2025 PHQ-2 Answer Date Recorded Retired PHQ-9: [...] [facility] [place] [address] [place] [address] 07/01/2025 2:00 PM EDT Appointment [facility] [place] [address] [place] [address] 07/06/2025 1:00 PM EDT Office Visit [facility] UROLOGY [address] [facility] [address] [place] [address] Teressa Finley, PREETI [address] [address] 11/01/2025 1:30 PM EST Office Visit [facility] CARDIOLOGY [address] [place] [address] Yaneth Ugarte MD [address] [place] [address] documented as of this encounter Visit Diagnoses Not on filedocumented in this encounter Care Teams Real Estate Legal Assistant Relationship Specialty Start Date End Date Juarez Griffin MD [address] [place] [facility] [address] [place] [address] PCP - General Internal Medicine 05/30/23 documented as of this encounter
--- OUTSIDE RECORDS SUMMARY | 2025-06-17 14:50 | XMS_ITS | Encounter Summary ---
Author Organization [facility] Address [address] [place] [id number] Care Team Providers Care Pattern Repair Person Name Role Phone Juarez Griffin MD Primary Care Provider Encounter Details Date Type Department Care Team (Late st Contact Info) Description 04/20/2024 Telephone [facility] UROLOGY [address] [facility] [address] [address] Demarcus Ames MD [address] [address] Social History Tobacco Use Types Packs/Day Years Used Date Smoking Tobacco: Never Passive Smoke Exposure: Never Smokeless Tobacco: Never Alcohol Use Standard Drinks/Week Comments Yes 0 (1 standard drink = 0.6 oz pur e alcohol) rarely [facility] Utilities Answer Date Recorded In the past 12 months has [employer], gas, oil, or water [employer] threatened to shut off services in your [...] and heating? Not hard at all 04/16/2024 [facility] [place] of Occupat ional Health - Occupational Stress [...] GED or equivalent No 04/16/2024 Preferred Language Luxembourgish 04/16/2024 PHQ-2 Answer Date Recorded Retired PHQ-9: [...] Info) Description 07/01/2025 1:00 PM EDT Appointment [facility] [place] [address] [place] [address] 07/01/2025 2:00 PM EDT Appointment [facility] [address] [facility] [place] [address] [place] [address] 07/06/2025 1:00 PM EDT Office Visit [facility] UROLOGY [address] [address] Teressa Finley, MATERIAL DISPOSITION INSPECTOR [address] [address] 11/01/2025 1:30 PM EST Office Visit [facility] CARDIOLOGY [address] [address] Yaneth Ugarte MD [address] [address] documented as of this encounter Visit Diagnoses Not on filedocumented in this encounter Additional Health Concerns Infection Onset Date Last Indicated Resolved Time ESBL 04/01/2024 04/01/2024 03/03/2025 6:48 AM EDT documented as of this encounter Care Teams Pattern Repair Person Relationship Specialty Start Date End Date Juarez Griffin MD [address] [place] [facility] [address] [place] [address] PCP - General Internal Medicine 05/30/23 documented as of this encounter
[2025-06-17 15:01] VITALS: BP 121/65; PULSE 60; RESP 20; TEMP 36.4; O2SAT 97
[2025-06-17] MEDS: ERTAPENEM SODIUM 1 GM VIAL IM (15:01)
== END 2025-06-17 15:15 | disposition home or self-care (01) ==
LOC: INF 14:44
PROVIDERS: PCP Internal Medicine; Visit Provider Student in an Organized Health Care Education/Training Program
DX: N39.0 Urinary tract infection, site not specified (principal)
CPT/HCPCS: 96372; J1335

== ENCOUNTER 2025-06-18 14:52 | Outpatient (CLI) | payer OTHER, SELFPAY ==
--- OUTSIDE RECORDS SUMMARY | 2025-05-03 13:30 | XMS_ITS | Encounter Summary ---
Author Organization [facility] Address [address] [place] [address] Care Team Providers Care Catering Attendant Name Role Phone Juarez Griffin MD Primary Care Provider [phone] Reason for Visit * Reason Comments Edema [...] Description 05/03/2025 1:30 PM EDT Office Visit [facility] CARDIOLOGY [address] [place] [address] Yaneth Ugarte MD [address] [place] [address] Hypercholesterolemia (Primary Dx); PVC (premature ventricular contraction); Precordial chest pain; Swelling of lower extremity Social History Tobacco Use Types Packs/Day Years Used Date Smoking Tobacco: Never Passive Smoke Exposure: Never Smokeless Tobacco: Never Tobacco Cessation:Counseling Given: Yes Alcohol Use Standard Drinks/Week Comments Not Currently 0 (1 standard drink = 0.6 oz pur e alcohol) Maybe 3 drinks annually [facility] Utilities Answer Date Recorded In [...] and heating? Not hard at all 04/16/2024 [facility] of Occupat ional Health - Occupational Stress [...] or training? Not on file Preferred Language Tuvaluan 02/25/2025 PHQ-2 Answer Date Recorded Retired PHQ-9: [...] MG/0.1ML nasal spray, Call 911. Don't prime. [place] in 1 nostril for overdose. Repeat in [...] Chronic chest pain followed by Dr. Ugarte -[facility] 03/05/24 Chronic diastolic (congestive) heart failure [...] file. Laura Ugarte MD Cardiology and Sleep [facility] 05/03/2025 Please note that this explicitly excludes [...] Info) Description 07/01/2025 1:00 PM EDT Appointment [facility]OUND [place] [address] [place] [address] 07/01/2025 2:00 PM EDT Appointment [facility] CT [place] [address] [place] [address] 07/06/2025 1:00 PM EDT Office Visit [facility] UROLOGY [address] [phone] Teressa Finley, BRAKE LINER [address] [address] 11/01/2025 1:30 PM EST Office Visit [facility] CARDIOLOGY [address] [address] Yaneth Ugarte MD [address] [place] [address] documented as of this encounter Procedures [...] 03/04/2025 Procedure: PARATHYROIDECTOMY; Surgeon: Zac Mckeon MD;Location: [facility] OR; Service: General; Laterality: N/A; PERCUTANEOUS NEPHROSTOLITHOTOMY Right 04/15/2024 Procedure: CYSTOSCOPY & BALLOON OCCLUSION CATHETER PLACEMENT, PRIMARYPERCUTANEOUS ACCESS, NEPHROSTOLITHOTOMY PERCUTANEOUS, WITH STENT EXCHANGE;Surgeon: Demarcus Ames MD; Location: [facility] OR; Service:Urology; Laterality: Right; PERCUTANEOUS NEPHROSTOLITHOTOMY [...] on file. Laura Ugarte MD Cardiology and [facility] 05/03/2025 Please note that this explicitly [...] extremity documented in this encounter Care Teams Catering Attendant Relationship Specialty Start Date End Date Juarez Griffin MD [address]10 [facility] [address] [place] [address] PCP - General Internal Medicine 05/30/23 documented as of this encounter
--- OUTSIDE RECORDS SUMMARY | 2025-06-18 14:54 | XMS_ITS | Encounter Summary ---
[facility] Address [address] [place] [id number] Care Team Providers Care Assembler Dc Field Ring Name Role Phone Juarez Griffin MD Primary Care Provider [phone] Encounter Details Date Type Department Care Team (Late st Contact Info) Description 04/29/2025 Telephone [facility] CARDIOLOGY [address] [place] [address] Yaneth Ugarte MD [address] [place] [address] Social History Tobacco Use Types Packs/Day Years Used Date Smoking Tobacco: Never Passive Smoke Exposure: Never Smokeless Tobacco: Never Alcohol Use Standard Drinks/Week Comments Not Currently 0 (1 standard drink = 0.6 oz pur e alcohol) Maybe 3 drinks annually [facility] Utilities Answer Date Recorded In the past 12 months has [employer], gas, oil, or water [employer] threatened to shut off services in your [...] and heating? Not hard at all 04/16/2024 [employer] [place] of Occupat ional Health - Occupational Stress [...] EDT Appointment [facility] [place] [address] [place] [address] 07/01/2025 2:00 PM EDT Appointment [facility] [address] [place] [address] [place] [address] 07/06/2025 1:00 PM EDT Office Visit [facility] UROLOGY [address] [place] [address] Teressa Finley, PREETI [address] [place] [address] 11/01/2025 1:30 PM EST Office Visit [facility] CARDIOLOGY [address] [address] Yaneth Ugarte MD [address] [address] documented as of this encounter Visit Diagnoses Not on filedocumented in this encounter Care Teams Assembler Dc Field Ring Relationship Specialty Start Date End Date Juarez Griffin MD [address] [place] [facility] [address] [place] [place] [address] PCP - General Internal Medicine 05/30/23 documented as of this encounter
--- OUTSIDE RECORDS SUMMARY | 2025-06-18 14:54 | XMS_ITS | Encounter Summary ---
Author Organization [facility] Address [address] [place] [address] Care Team Providers Care Dynamometer Tester Engine Name Role Phone Juarez Griffin MD Primary Care Provider [phone] Encounter Details Date Type Department Care Team (Latest Contact Info) Description 05/03/2025 Travel Social History Tobacco Use Types Packs/Day Years Used Date Smoking Tobacco: Never Passive Smoke Exposure: Never Smokeless Tobacco: Never Alcohol Use Standard Drinks/Week Comments Not Currently 0 (1 standard drink = 0.6 oz pur e alcohol) Maybe 3 drinks annually [facility] Utilities Answer Date Recorded In the past 12 months has [employer] electric, gas, oil, or water [employer] threatened to shut off services in your [...] and heating? Not hard at all 04/16/2024 [facility] [place] of Occupat ional Health - Occupational Stress [...] or training? Not on file Preferred Language Bengali 02/25/2025 PHQ-2 Answer Date Recorded Retired PHQ-9: [...] Appointment [facility] [place] [address] [place] [address] 07/01/2025 2:00 PM EDT Appointment [facility] [place] [address] [place] [address] 07/06/2025 1:00 PM EDT Office Visit [facility] UROLOGY [address] [facility] [address] [place] [address] Teressa Finley, PREETI [address] [address] 11/01/2025 1:30 PM EST Office Visit [facility] CARDIOLOGY [address] [place] [address] Yaneth Ugarte MD [address] [place] [address] documented as of this encounter Visit Diagnoses Not on filedocumented in this encounter Care Teams Dynamometer Tester Engine Relationship Specialty Start Date End Date Juarez Griffin MD [address] [place] [facility] [address] [place] [address] PCP - General Internal Medicine 05/30/23 documented as of this encounter
--- OUTSIDE RECORDS SUMMARY | 2025-06-18 14:54 | XMS_ITS | Encounter Summary ---
[facility] Address [address] [place] [address] Care Team Providers Care Board Design Engineer Name Role Phone Juarez Griffin MD Primary Care Provider [phone] Encounter Details Date Type Department Care Team (Late st Contact Info) Description 05/11/2025 Telephone [facility] CARDIOLOGY [address] [place] [address] Shell Diaz RegSched Rep Social History Tobacco Use Types Packs/Day Years Used Date Smoking Tobacco: Never Passive Smoke Exposure: Never Smokeless Tobacco: Never Alcohol Use Standard Drinks/Week Comments Not Currently 0 (1 standard drink = 0.6 oz pur e alcohol) Maybe 3 drinks annually [facility] Utilities Answer Date Recorded In the past 12 months has [employer], gas, oil, or water company threatened [...] heating? Not hard at all 04/16/2024 [facility] [place] of Occupat ional Health - Occupational Stress [...] PM EDT Appointment [facility] [place] [address] [place] [address] 07/01/2025 2:00 PM EDT Appointment [facility] [place] [address] [place] [address] 07/06/2025 1:00 PM EDT Office Visit [facility] UROLOGY [address] [address] Teressa Finley, SENIOR CORPORATE STRATEGY MANAGER [address] [facility] [address] [place], [place] [address] 11/01/2025 1:30 PM EST Office Visit [facility] CARDIOLOGY [address] [place] [address] Yaneth Ugarte MD [address] [place] [address] documented as of this encounter Visit Diagnoses Not on filedocumented in this encounter Care Teams Board Design Engineer Relationship Specialty Start Date End Date Juarez Griffin MD [address] [place] [facility] [address] [facility] [address] [place] [address] PCP - General Internal Medicine 05/30/23 documented as of this encounter
--- OUTSIDE RECORDS SUMMARY | 2025-06-18 14:54 | XMS_ITS | Encounter Summary ---
Author Organization [facility] Address [address] [place] [id number] Care Team Providers Care Industrial Electrician Journeyman Name Role Phone Juarez Griffin MD Primary Care Provider [phone] Encounter Details Date Type Department Care Team (Late st Contact Info) Description 05/03/2025 Patient rounding ([facility] only) [facility] CARDIOLOG[facility] [address] [place] [address] Yaneth Ugarte MD [address] [place] [address] Social History Tobacco Use Types Packs/Day Years Used Date Smoking Tobacco: Never Passive Smoke Exposure: Never Smokeless Tobacco: Never Alcohol Use Standard Drinks/Week Comments Not Currently 0 (1 standard drink = 0.6 oz pur e alcohol) Maybe 3 drinks annually [facility] Utilities Answer Date Recorded In the past 12 months has [employer], gas, oil, or water [email or web address] threatened to shut off services in your [...] and heating? Not hard at all 04/16/2024 [facility] [place] of Occupat ional Health - Occupational Stress [...] is Landy Alonzo and I am the Chief Dispatcher for [facility] Cardiology [facility]. I would like to thank you [...] your first visit to us as a [facility] facility? In the next few days, you will be receiving a Patient Experience Survey. Thank you for taking the time to answer a few questions today. I hope you have a good day. documented in this encounter Plan of Treatment Upcoming Encounters Date Type Department Care Team (Late st Contact Info) Description 07/01/2025 1:00 PM EDT Appointment [facility] [place] [address] [place] [address] 07/01/2025 2:00 PM EDT Appointment [facility] AT [place] [address] [place] [address] 07/06/2025 1:00 PM EDT Office Visit [facility] UROLOGY [address] [place] [address] Teressa Finley, MACHINE WOOD SANDER [address] [place] [address] 11/01/2025 1:30 PM EST Office Visit [facility] CARDIOLOG[facility] [address] [place] [address] Yaneth Ugarte MD [address] [place] [address] documented as of this encounter Visit Diagnoses Not on filedocumented in this encounter Care Teams Industrial Electrician Journeyman Relationship Specialty Start Date End Date Juarez Griffin MD [address] [facility] [address] [facility] [address] [place] [address] PCP - General Internal Medicine 05/30/23 documented as of this encounter
--- OUTSIDE RECORDS SUMMARY | 2025-06-18 14:54 | XMS_ITS | Encounter Summary ---
Author Organization [facility] Address [address] [place] [address] Care Team Providers Care Paper Sorter And Counter Name Role Phone Juarez Griffin MD Primary Care Provider [phone] Encounter Details Date Type Department Care Team (Late st Contact Info) Description 05/10/2025 Results Follow-Up [facility] CARDIOLOGY [address] [place] [address] Yaneth Ugarte MD [address] [place], [place] [id number] Social History Tobacco Use Types Packs/Day Years Used Date Smoking Tobacco: Never Passive Smoke Exposure: Never Smokeless Tobacco: Never Alcohol Use Standard Drinks/Week Comments Not Currently 0 (1 standard drink = 0.6 oz pur e alcohol) Maybe 3 drinks annually [facility] Utilities Answer Date Recorded In the past 12 months has [employer], gas, oil, or water [employer] threatened to shut off services in your [...] and heating? Not hard at all 04/16/2024 [facility] [place] of Occupat ional Health - Occupational Stress [...] or training? Not on file Preferred Language Divehi 02/25/2025 PHQ-2 Answer Date Recorded Retired PHQ-9: [...] [facility] [place] [address] [place] [address] 07/01/2025 2:00 PM EDT Appointment [facility] [address] [facility] [place] [address] [place] [address] 07/06/2025 1:00 PM EDT Office Visit [facility] UROLOG[facility] [address] [address] Teressa Finley, PREETI [address] [id number] 11/01/2025 1:30 PM EST Office Visit [facility] CARDIOLOG[facility] [address] [place] [address] Yaneth Ugarte MD [address] [place] [address] documented as of this encounter Visit Diagnoses Not on filedocumented in this encounter Care Teams Paper Sorter And Counter Relationship Specialty Start Date End Date Juarez Griffin MD 1210 [facility] [address] [place] [address] PCP - General Internal Medicine 05/30/23 documented as of this encounter
--- OUTSIDE RECORDS SUMMARY | 2025-06-18 14:55 | XMS_ITS | Clinical Summary ---
Author Organization [facility] ([place], [place], [place], [place]) Address [address] [place] [address] Care Team Providers Care Geology Scientist Name Role Phone Juarez Griffin MD Primary Care Provider [phone] Allergies Active Allergy Reactions Criticality Noted Date [...] Do you speak a language other than Cymraes at [facility]? No 12/27/2023 Do you want [...] Completed 10/30/2023, Medical Devices Implanted Type Area Tower Truck Driver Device Identifier Shelf Expiration Date Model / Serial / Lot Loop Recorder LOOP RECORDER Left: Chest Insurance [facility] [place] Advance Directives For more information, please contact: [phone] * Full Code (Latest Code Status on File) Date Activated Date Inactivated Comments 12/27/2023 3:21 AM 12/30/2023 2:53 PM -Attempt Resus citation if person has no pulse and is not breathing. -If no pulse or not breathing attempt CPR/CODE. -Call Rapid Response if patient is in distress. Care Teams Geology Scientist Relationship Specialty Start Date End Date Juarez Griffin MD [address] [place] [address] [place] [address] PCP - General General Internal Medicine 12/30/23
--- OUTSIDE RECORDS SUMMARY | 2025-06-18 14:55 | XMS_ITS | Referral Summary ---
Author Organization [employer] ([place], [place], [place], [place]) Address [address] [place] [address] Care Team Providers Care Brand Sales Manager Name Role Phone Juarez Griffin MD Primary Care Provider [phone] Allergies Active Allergy Reactions Criticality Noted Date [...] Do you speak a language other than German at [facility]? No 12/27/2023 Do you want [...] on file Medical Devices Implanted Type Area Second Cutter Device Identifier Shelf Expiration Date Model / Serial / Lot Loop Recorder LOOP RECORDER Left: Chest Insurance [facility] [place] [id number] [facility] Advance Directives For more information, please contact: [phone] * Full Code (Latest Code Status on File) Date Activated Date Inactivated Comments 12/27/2023 3:21 AM 12/30/2023 2:53 PM -Attempt Resus citation if person has no pulse and is not breathing. -If no pulse or not breathing attempt CPR/CODE. -Call Rapid Response if patient is in distress. Care Teams Brand Sales Manager Relationship Specialty Start Date End Date Juarez Griffin MD [address] [place] [address] [place] [address] PCP - General General Internal Medicine 12/30/23
--- OUTSIDE RECORDS SUMMARY | 2025-06-18 14:55 | XMS_ITS | Encounter Summary ---
Author Organization [facility] Address [address] [place] [id number] Care Team Providers Care Plastic Tool Maker Name Role Phone Juarez Griffin MD Primary Care Provider [phone] Encounter Details Date Type Department Care Team (Late st Contact Info) Description 04/16/2024 Retail Pharmacy Consultation [facility] [place] [address] [place] [address] [facility] [address] [place], [place] [id number] Social History Tobacco Use Types Packs/Day Years Used Date Smoking Tobacco: Never Passive Smoke Exposure: Never Smokeless Tobacco: Never Alcohol Use Standard Drinks/Week Comments Yes 0 (1 standard drink = 0.6 oz pur e alcohol) rarely C Utilities Answer Date Recorded In the past 12 months has [employer], gas, oil, or water [email or web address] threatened to shut off services in your [...] and heating? Not hard at all 04/16/2024 [facility] [place] of Occupat ional Health - Occupational Stress [...] GED or equivalent No 04/16/2024 Preferred Language Persian 04/16/2024 PHQ-2 Answer Date Recorded Retired PHQ-9: [...] Info) Description 07/01/2025 1:00 PM EDT Appointment [facility] [place] [address] [place] [address] 07/01/2025 2:00 PM EDT Appointment [facility] [place] [address] [place] [address] 07/06/2025 1:00 PM EDT Office Visit [facility] [address] [address] Teressa Finley APRN [address] [address] 11/01/2025 1:30 PM EST Office Visit [facility] C[facility] [address] [place] [address] Yaneth Ugarte MD [address] [place] [address] documented as of this encounter Visit Diagnoses Not on filedocumented in this encounter Additional Health Concerns Infection Onset Date Last Indicated Resolved Time ESBL 04/01/2024 04/01/2024 03/03/2025 6:48 AM EDT documented as of this encounter Care Teams Plastic Tool Maker Relationship Specialty Start Date End Date Juarez Griffin MD [address] [place] [address] PCP - General Internal Medicine 05/30/23 documented as of this encounter
--- OUTSIDE RECORDS SUMMARY | 2025-06-18 14:55 | XMS_ITS | Encounter Summary ---
Author Organization [facility] Address [address] [place] [address] Care Team Providers Care Closing Agent Name Role Phone Juarez Griffin MD Primary Care Provider [phone] Reason for Visit * Reason Onset Date Comments DR AMES - SCHEDULING 03/31/2025 Encounter Details Date Type Department Care Team (Late st Contact Info) Description 03/31/2025 Telephone [facility] [address] [facility] [address] [address] Demarcus Ames MD [address] [address] [address] AMES - SCHEDULING Social History Tobacco Use Types Packs/Day Years Used Date Smoking Tobacco: Never Passive Smoke Exposure: Never Smokeless Tobacco: Never Alcohol Use Standard Drinks/Week Comments Not Currently 0 (1 standard drink = 0.6 oz pur e alcohol) Maybe [address] [facility] Utilities Answer Date Recorded In the past 12 months has [employer], [employer], oil, or water [employer] threatened to shut off services in your [...] Not hard at all 04/16/2024 [facility] [place] of Occupat ional Health - Occupational Stress [...] or training? Not on file Preferred Language Sammarinese 02/25/2025 PHQ-2 Answer Date Recorded Retired PHQ-9: [...] 9:18 AM EDT Cathy Curtis RN * [place] Suicide Severity Rating Scale (Screener/Recent Self-Report) Question Answer Date of Assessment Author 6. Suicidal Behavior (Lifetime) No 9:18 AM EDT Vandana Curtis RN documented as of this encounter Miscellaneous Notes * Telephone Encounter - Ashleigh Crowell - 03/31/2025 1:55 PM EDT Caller: LISSY VALDEZ Relationship to patient: SELF Best call back number: [phone] Chief complaint: PATIENT HAD SURGERY TODAY AND [...] Info) Description 07/01/2025 1:00 PM EDT Appointment [facility] [place] [address] [place] [address] 07/01/2025 2:00 PM EDT Appointment [facility] [place] [address] [place] [address] 07/06/2025 1:00 PM EDT Office Visit [facility] [address] [place] [address] Teressa Finley APRN [address] [place] [address] 11/01/2025 1:30 PM EST Office Visit [facility] CARDIOLOGY [address] [place] [address] Yaneth Ugarte MD [address] [place] [address] documented as of this encounter Visit Diagnoses Not on filedocumented in this encounter Care Teams Closing Agent Relationship Specialty Start Date End Date Juarez Griffin MD [address]10 [facility] [address] [place] [id number] PCP - General Internal Medicine 05/30/23 documented as of this encounter
--- OUTSIDE RECORDS SUMMARY | 2025-06-18 14:55 | XMS_ITS | Encounter Summary ---
Author Organization [facility] Address [address] [place] [address] Care Team Providers Care Tractor Driver Name Role Phone Juarez Griffin MD Primary Care Provider [phone] Reason for Visit * Reason Onset Date Comments DR AMES - CLINICAL 04/01/2025 Encounter Details Date Type Department Care Team (Late st Contact Info) Description 04/01/2025 Telephone [facility] UROLOGY 793 [facility] [address] [address] Demarcus Ames MD [address] [address] [address] AMES - CLINICAL Social History Tobacco Use Types Packs/Day Years Used Date Smoking Tobacco: Never Passive Smoke Exposure: Never Smokeless Tobacco: Never Alcohol Use Standard Drinks/Week Comments Not Currently 0 (1 standard drink = 0.6 oz pur e alcohol) Maybe 3 drinks annually [facility] Utilities Answer Date Recorded In the past 12 months has [employer], [employer]), oil, or water [employer] threatened to shut off services in your [...] and heating? Not hard at all 04/16/2024 [facility] [place] of Occupat ional Health - Occupational Stress [...] or training? Not on file Preferred Language Sierra Leonean 02/25/2025 PHQ-2 Answer Date Recorded Retired PHQ-9: [...] OUT TO DISCUSS BEST NUMBER IS CELL [phone] documented in this encounter Plan of Treatment Upcoming Encounters Date Type Department Care Team (Late st Contact Info) Description 07/01/2025 1:00 PM EDT Appointment [facility] AT [place] [address] [place] [address] 07/01/2025 2:00 PM EDT Appointment [facility] [place] [address] [facility] [place] [address] 07/06/2025 1:00 PM EDT Office Visit [facility] UROLOGY [address] [place] [address] Teressa Finley, IT TECHNICAL ARCHITECT [address] [facility] [address] 3 [facility] [address] [place] [address] 11/01/2025 1:30 PM EST Office Visit [facility] CARDIOLOGY [address] [place] [address] Yaneth Ugarte MD [address] [place] [address] documented as of this encounter Visit Diagnoses Not on filedocumented in this encounter Care Teams Tractor Driver Relationship Specialty Start Date End Date Juarez Griffin MD 1210 [facility] [address] [place] [address] PCP - General Internal Medicine 05/30/23 documented as of this encounter
--- OUTSIDE RECORDS SUMMARY | 2025-06-18 14:55 | XMS_ITS | Encounter Summary ---
Author Organization [facility] Address [address] [place] [address] Care Team Providers Care Parts Assembler Name Role Phone Juarez Griffin MD Primary Care Provider [phone] Reason for Visit * Reason Onset Date Comments DR AMES - POST OP FOLLOW UP 03/31/2025 Encounter Details Date Type Department Care Team (Late st Contact Info) Description 03/31/2025 Telephone [facility] UROLOGY [address] [facility] [address] [address] Demarcus Ames MD [address] [address] [address] AMES - POST OP FOLLOW UP Social History Tobacco Use Types Packs/Day Years Used Date Smoking Tobacco: Never Passive Smoke Exposure: Never Smokeless Tobacco: Never Alcohol Use Standard Drinks/Week Comments Not Currently 0 (1 standard drink = 0.6 oz pur e alcohol) Maybe 3 drinks annually [facility] Utilities Answer Date Recorded In the past 12 months has [employer], gas, oil, or water [employer] threatened to shut off services in your [...] and heating? Not hard at all 04/16/2024 [facility] [place] [facility]at [facility] - Occupational Stress Questionnaire [...] or training? Not on file Preferred Language Fijian 02/25/2025 PHQ-2 Answer Date Recorded Retired PHQ-9: [...] 9:18 AM EDT Cathy Curtis RN * [place] Suicide Severity Rating Scale (Screener/Recent Self-Report) Question Answer Date of Assessment Author 6. Suicidal Behavior (Lifetime) No 9:18 AM EDT Vandana Curtis RN documented as of this encounter Miscellaneous Notes * Telephone Encounter - Emily Mendez CMA - 03/31/2025 2:54 PM EDT Pt scheduled with test desk operator JUAN MIGUEL Christianson * Telephone Encounter - [...] Info) Description 07/01/2025 1:00 PM EDT Appointment [facility] [place] [address] [place] [address] 07/01/2025 2:00 PM EDT Appointment [facility] [address] AT [place] [address] [place] [address] 07/06/2025 1:00 PM EDT Office Visit [facility] UROLOGY [address] [place] [address] Teressa Finley APRN [address] [place] [address] 11/01/2025 1:30 PM EST Office Visit [facility] CARDIOLOGY [address] [place] [address] Yaneth Ugarte MD [address] [place] [address] documented as of this encounter Visit Diagnoses Not on filedocumented in this encounter Care Teams Parts Assembler Relationship Specialty Start Date End Date Juarez Griffin MD 1210 [facility] [address] [place] [id number] PCP - General Internal Medicine 05/30/23 documented as of this encounter
--- OUTSIDE RECORDS SUMMARY | 2025-06-18 14:55 | XMS_ITS | Clinical Summary ---
Author Organization [facility] Address [address] [place] [address] Care Team Providers Care Process Development Engineer Name Role Phone Juarez Griffin MD Primary Care Provider [phone] Karen Naqvi DO Unavailable [phone] Allergies Active Allergy Reactions Criticality Noted Date [...] Comments Diabetes Father Wallace Heart disease Father Buchtel Hypertension Father Wallace Dementia Mother Marzena Hypertension Mother Marzena Cancer Mother's Brother Lino Heart disease Mother's Brother Lino Diabetes insipidus Other 1 Hypertension Other 2 Lupus Other 3 Cancer Paternal Grandfather Unknown Anesthesia problems Sister Marta Diabetes Sister Marta Heart disease Sister Marta Hypertension Sister Marta Relation Name Status Comments Father Buchtel Mother Marzena Mother's Brother Lino Other 1 [...] drink first t yue in the morning (EYE-HOSPICE FELLOW) to steady your nerves or to get [...] PPSV23) 11/01/2021 09/06/2021 [facility]-Breast Cancer Screening 2023 [id number] Vaccine (3 - season) 2024 10/07/2022, 08/21/2021 [...] this topic Medical Devices Implanted Type Area Retort Feeder Ground Bone Device Identifier Shelf Expiration Date Model / Serial / Lot Stent Ureteral Double Pigtail Pos 6fr 24cm - [id number] - [id number] Implanted:Qty: 1 on 04/11/2024 by Harvey Macdonald MD at [facility] Stent Right: Ureter [id number] 01/02/2026 [id number] / [id number] / [id number] Loop Recorder-2016 Implanted:04/28 (Quantity not on file) [...] ORDERABLES Final Re sult [facility] [address] [place] [address] * Hepatitis C Antibody - ED (04/10/2024 6:11 PM EDT) Hepatitis C Antibody Negative Negative 04/10/2024 7:24 PM EDT [facility] Blood Venous blood specimen / Unknown Venipuncture / Unknown 04/10/2024 6:11 PM EDT 04/10/2024 6:26 PM EDT Susan Mcclure MD LAB BLOOD ORDERABLES Final Re sult Performing Organization Address City/[facility] de Phone Number [facility] [address] [place] [address] * (ABNORMAL) Hemoglobin A1c (04/10/2024 6:11 PM [...] Adults <6.0% Children and Adolescents <7.5% Source: [place] Diabetes Association. Standards of medical care in diabetes,2017. Diabetes Care.2017:40 (suppl 1):S1-S135. HbA1c assay performed by an ion-exchange chromatography method that is certified traceable to the DCCT. Joselito Berrios MD LAB BLOOD ORDERABLES Final Re sult Performing Organization Address [facility] de Phone Number [facility] [address] [place] [address] from Last 3 Months or Most Recently Relevant to Health Maintenance Additional Health Concerns Infection Onset Date Last Indicated ESBL Comment:+ 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 Source: [facility]. This patient will require contact precautions indefinitely. 04/01/2024 Insurance [id number] [id number] [facility] MEDICAID Advance Directives * Full Code (Latest Code Status on File) Date Activated Date Inactivated Comments 04/11/2024 10:12 AM 04/12/2024 3:22 PM Question Answer Comments Patient has decision-making capacity? Yes Care Teams Process Development Engineer Relationship Specialty Start Date End Date Juarez Griffin MD 1210 [facility] [address] [place] [address] PCP - General 03/10/21 Karen Naqvi DO 1210 [facility] [address] [place] [address] Referring Physician Obstetrics and Gynecology 09/23/24
--- OUTSIDE RECORDS SUMMARY | 2025-06-18 14:55 | XMS_ITS | Encounter Summary ---
[facility] Address [address] [place] [id number] Care Team Providers Care Barback Name Role Phone Juarez Griffin MD Primary Care Provider [phone] Encounter Details Date Type Department Care Team (Late st Contact Info) Description 04/20/2024 Telephone [facility] [address] [facility] [address] [address] Demarcus Ames MD [address] [address] Social History Tobacco Use Types Packs/Day Years Used Date Smoking Tobacco: Never Passive Smoke Exposure: Never Smokeless Tobacco: Never Alcohol Use Standard Drinks/Week Comments Yes 0 (1 standard drink = 0.6 oz pur e alcohol) rarely [facility] Utilities Answer Date Recorded In the past 12 months has [employer], gas, oil, or water [employer] threatened to shut off services in your [...] and heating? Not hard at all 04/16/2024 [place] of Occupat ional Health - Occupational Stress [...] GED or equivalent No 04/16/2024 Preferred Language Armenian 04/16/2024 PHQ-2 Answer Date Recorded Retired PHQ-9: [...] Appointment [facility] [place] [address] [place] [address] 07/01/2025 2:00 PM EDT Appointment [facility] [address] [facility] [place] [address] [place] [address] 07/06/2025 1:00 PM EDT Office Visit [facility] UROLOGY [address] [address] Teressa Finley, DRUM TENDER [address] [address] 11/01/2025 1:30 PM EST Office Visit [facility] CARDIOLOGY [address] [place] [address] Yaneth Ugarte MD [address] [place] [address] documented as of this encounter Visit Diagnoses Not on filedocumented in this encounter Additional Health Concerns Infection Onset Date Last Indicated Resolved Time ESBL 04/01/2024 04/01/2024 03/03/2025 6:48 AM EDT documented as of this encounter Care Teams Barback Relationship Specialty Start Date End Date Juarez Griffin MD 1210 [facility] [address] [place] [address] PCP - General Internal Medicine 05/30/23 documented as of this encounter
--- OUTSIDE RECORDS SUMMARY | 2025-06-18 14:55 | XMS_ITS | Clinical Summary ---
Author Organization [facility] Address [address] [place] [id number] Care Team Providers Care Veterinary Technology Instructor Name Role Phone Juarez Griffin MD Primary Care Provider [phone] Allergies Active Allergy Reactions Criticality Noted Date [...] s:Nephrolithias is,Recurrent UTI Call 911. Don't prime. Paige in 1 nostril for overdose. Repeat in [...] Type Department Care Team Description 05/11/2025 Telephone [facility] [address] [address] Shell Diaz RegSched Rep 05/10/2025 Results Follow-Up [facility] [address] [address] Yaneth Ugarte MD 05/03/2025 1:30 PM EDT Office Visit [facility] [address] [address] Yaneth Ugarte MD Hypercholesterolemia (Primary Dx); PVC (premature ventricular contraction); Precordial chest pain; Swelling of lower extremity 05/03/2025 Patient rounding ([facility] only) [facility] [address] [address] Yaneth Ugarte MD 05/03/2025 Travel 04/29/2025 Telephone [facility] [address] [address] Yaneth Ugarte MD 04/05/2025 9:00 AM EDT Procedure visit [facility] [address] [facility] [address] [address] Demarcus Ames MD Staghorn calculus (Primary Dx) 04/05/2025 Travel 04/01/2025 Telephone [facility] [address] [facility] [address] [address] TODD - CLINICAL 03/31/2025 10:26 AM EDT Anesthesia Event [facility] OR [address] [place] [address] Edgardo Ryna, SANDRA 03/31/2025 10:10 AM EDT - 03/31/2025 12:11 PM EDT Surgery [facility] OR [address] [place] [address] Demarcus Ames MD Percutaneous nephrolithotomy with stent placement left, cystoscopy 03/31/2025 10:05 AM EDT Anesthesia Event Converted [facility]IA [address] [place] [address] 03/31/2025 8:29 AM EDT - 03/31/2025 2:15 PM EDT Hospital Encounter [facility] OR [address] [place] [address] Demarcus Ames MD Staghorn calculus Discharge Disposition: Home or Self Care 03/31/2025 Telephone [facility] [address] [facility] [address] [address] TODD - POST OP FOLLOW UP 03/31/2025 Telephone [facility] [address] [place] [address] [address] TODD - SCHEDULING 03/31/2025 Travel 03/25/2025 Telephone [facility] [address] [facility] [address] [address] Demarcus Ames MD 03/24/2025 1:00 PM EDT Pre-Admission Testing [facility] PREADMISSION T [address] [place] [address] 03/24/2025 Travel from Last 3 Months Family History [...] e alcohol) Maybe 3 drinks annually [facility] Utilities Answer Date Recorded In the past 12 months has [employer] electric, gas, oil, or water [employer] threatened to shut off services in [...] and heating? Not hard at all 04/16/2024 [facility] of Occupat ional Health - Occupational Stress [...] or training? Not on file Preferred Language Citizen Of [place] 02/25/2025 PHQ-2 Answer Date Recorded Retired PHQ-9: [...] Appointment [facility] ULTRASOUND AT [address] [address] 07/01/2025 2:00 PM EDT Appointment [facility] CT AT [address] [address] 07/06/2025 1:00 PM EDT Office Visit [facility] [address] [facility] [facility] [address] [address] Teressa Finley APRN [address] [facility] [address] [address] 11/01/2025 1:30 PM EST Office Visit [facility] [address] [place] [address] Yaneth Ugarte MD [address] [place] [address] Health Maintenance Due Date Last Done [...] Completed 04/10/2024 Medical Devices Implanted Type Area Senior Cyber Security Analyst Device Identifier Shelf Expiration Date Model / Serial / Lot Kt Seal Hemos Abs Floseal Matrx Fast/Prep 5ml - [id number] Implanted:Qty : 1 on 04/15/2024 by Demarcus Ames MD at [facility] Implant Right: Kidney [employer] 05/29/2025 [id number] / / [id number] Michael Ligskylar Vasyani Wilson Md Daniel 6ct - [id number] Implanted:Qty : 2 on 03/04/2025 by Zac Mckeon MD at [facility] Implant N/A: Neck [employer] [id number] / / Clip Ligat Vasc Horizon Ti Sm Yel 6ct - [id number] Implanted:Qty : 4 on 03/04/2025 by Zac Mckeon MD at [facility] Implant N/A: Neck [employer] [id number] / / Hemost Abs Surgicel Orig 4x8in Strl - [id number] Implanted:Qty : 1 on 03/04/2025 by Zac Mckeon MD at [facility] Implant N/A: Neck [employer] [id number] / / Kt Seal Hemos Abs Floseal Matrx 1.5/Fast/Prep 5000/Iu 5ml - [id number] Implanted:Qty : 1 on 03/31/2025 by Demarcus Ames MD at [facility] Implant Left: Back [employer] 08/13/2026 [id number] / / [id number] Stnt Percuflx No Gw 7x26 - [id number] Implanted:Qty : 1 on 04/15/2024 by Demarcus Ames MD at [facility] Stent Right: Kidney [employer] 09/06/2026 [id number] / / [id number] Stnt Percuflx No Gw 7x26 - [id number] Implanted:Qty : 1 on 03/31/2025 by Demarcus Ames MD at [facility] Stent Left: Back [employer] 08/10/2027 [id number] / / [id number] Procedures Procedure Name Priority Date/Time Associated Diagnosis [...] ORDERABLES Final R esult Performing Organization Address City/[facility]/ZIP Co de Phone Number [facility]
[address] [place] [address], [place] [phone] * Magnesium (05/07/2025) Blood Yaneth Ugarte MD LAB BLOOD ORDERABLES Final R esult Performing Organization Address [facility] Co de Phone Number [facility]
[address] [place] [address], [place] [phone] * Lipid Panel (05/07/2025) Blood Yaneth Ugarte MD LAB BLOOD ORDERABLES Final R esult Performing Organization Address [facility] Co de Phone Number [facility]
[address] [place] [address], [place] [phone] * Comprehensive Metabolic Panel (05/07/2025) Blood Yaneth Ugarte MD LAB BLOOD ORDERABLES Final R esult Performing Organization Address [facility] Co de Phone Number [facility]
[address] [place] [address], [place] [phone] * ECG 12-LEAD (05/03/2025 2:22 PM EDT) [...] 03/04/2025 Procedure: PARATHYROIDECTOMY; Surgeon: Zac Mckeon MD;[facility]: [facility]; Service: General; Laterality: N/A; PERCUTANEOUS NEPHROSTOLITHOTOMY Right 04/15/2024 Procedure: CYSTOSCOPY & BALLOON OCCLUSION CATHETER PLACEMENT, PRIMARYPERCUTANEOUS ACCESS, NEPHROSTOLITHOTOMY PERCUTANEOUS, WITH STENT EXCHANGE;Surgeon: Demarcus Ames MD; Location: [facility] OR; Service:Urology; Laterality: Right; PERCUTANEOUS NEPHROSTOLITHOTOMY Left 03/31/2025 Procedure: Percutaneous nephrolithotomy with stent placement left,cystoscopy; Surgeon: Demarcus Ames MD; Location: [facility] OR;Service: Urology; Laterality: Left; TUBAL [...] file. Laura Ugarte MD Cardiology and Sleep [facility] 05/03/2025 Please note that this explicitly [...] Proteus mirabilis(A) TOMASA 04/03/2025 9:18 AM EDT [facility] Gram Stain No organisms seen 04/03/2025 9:18 AM EDT [facility] Calculus Left kidney structure [...] MICROBIOLOGY - GENERAL OR DERABLES Final Result [facility]
[address] [place] [address], [place] [phone] [facility]
[address] [place] [address], [place] [phone] * STONE ANALYSIS - Calculus, Kidney, Left [...] 04/14/2025 10:06 PM EDT Performed at: - [facility] [place] [id number] Building Equipment Operator: Mariam Turner PhD, Phone: [phone] us Demarcus Ames MD BODY FLUIDS AND STOOLS OR DERABLES Final Result [facility] [address] [place] [address], * BH AN ETT AIRWAY (03/31/2025 10:40 AM EDT) Narrative Edgardo Ryan CRNA - 03/31/2025 10:40 AM EDT Edgardo Ryan CRNA 03/31/2025 10:41 AM Airway Reason: elective Date/Time: 03/31/2025 10:32 AM Airway not difficult General Information and Staff Patient location during procedure: OR [employer]IC[employer]/CAA: Edgardo Ryan CRNA Indications and Patient Condition [...] - 130 mg/dL 03/31/2025 9:33 AM EDT [facility] Comment:Serial Number: [id number]: [id number] Blood 03/31/2025 9:12 AM EDT 03/31/2025 9:33 AM EDT Demarcus Ames MD POINT OF CARE TEST ORDERA BLES Final Result [facility]
[address] [place] [address], [place] [phone] * Type & Screen (03/31/2025 9:03 AM EDT) ABO Type AB 03/31/2025 10:05 AM EDT [facility] LABORATORY RH type Positive 03/31/2025 10:05 AM EDT [facility] Antibody Screen Negative 03/31/2025 10:05 AM EDT [facility] T&S Expiration Date 04/03/2025 11:59:59 PM 03/31/2025 10:05 AM EDT [facility] Blood Venipuncture / Unknown 03/31/2025 9:03 AM EDT 03/31/2025 9:09 AM EDT Demarcus Ames MD BLOOD BANK TEST ORDERABLE S Edited Result - Final [facility]
[address] [place] [address], [place] [phone] * Telemetry Scan (03/31/2025) [facility] ECG ORDERABLES Final Result * CBC (No Diff) (03/24/2025 1:13 PM EDT) WBC 10.22 3.40 - 10.80 10*3/mm3 03/24/2025 3:17 PM EDT [facility] RBC 5.25 3.77 - 5.28 10*6/mm3 03/24/2025 3:17 PM EDT [facility] Hemoglobin 14.8 12.0 - 15.9 g/dL 03/24/2025 3:17 PM EDT [facility] Hematocrit 45.0 34.0 - 46.6 % 03/24/2025 3:17 PM EDT [facility] MCV 85.7 79.0 - 97.0 fL 03/24/2025 3:17 PM EDT [facility] MCH 28.2 26.6 - 33.0 pg 03/24/2025 3:17 PM EDT [facility] MCHC 32.9 31.5 - 35.7 g/dL 03/24/2025 3:17 PM EDT [facility] RDW 13.8 12.3 - 15.4 % 03/24/2025 3:17 PM EDT [facility] RDW-SD 42.9 37.0 - 54.0 fl 03/24/2025 3:17 PM EDT [facility] MPV 11.2 6.0 - 12.0 fL 03/24/2025 3:17 PM EDT [facility] Platelets 326 140 - 450 10*3/mm3 03/24/2025 3:17 PM EDT [facility] Blood Line / Unknown 03/24/2025 1: 13 PM EDT 03/24/2025 3:13 PM EDT Demarcus Ames MD LAB BLOOD ORDERABLES Maria E hwang Result [facility]
[address] [place] [address], * (ABNORMAL) Basic Metabolic Panel (03/24/2025 1:13 PM EDT) Glucose 120(H) 65 - 99 mg/dL 03/24/2025 3:42 PM EDT [facility] BUN 16.0 6.0 - 20.0 mg/dL 03/24/2025 3:42 PM EDT [facility] Creatinine 0.90 0.57 - 1.00 mg/dL 03/24/2025 3:42 PM EDT [facility] Sodium 140 136 - 145 mmol/L 03/24/2025 3:42 PM EDT [facility] Potassium 4.1 3.5 - 5.2 mmol/L 03/24/2025 3:42 PM EDT [facility] Chloride 97(L) 98 - 107 mmol/L 03/24/2025 3:42 PM EDT [facility] CO2 26.5 22.0 - 29.0 mmol/L 03/24/2025 3:42 PM EDT [facility] Calcium 9.7 8.6 - 10.5 mg/dL 03/24/2025 3:42 PM EDT [facility] BUN/Creatinine Ratio 17.8 7.0 - 25.0 03/24/2025 3:42 PM EDT [facility] Anion Gap 16.5(H) 5.0 - 15.0 mmol/L 03/24/2025 3:42 PM EDT [facility] eGFR 77.6 >60.0 mL/min/1.7 3 03/24/2025 3:42 PM EDT [facility] Blood Line / Unknown 03/24/2025 1: 13 PM EDT 03/24/2025 3:13 PM EDT [facility] - 03/24/2025 3:42 PM EDT [...] LAB BLOOD ORDERABLES Maria E jaiden Result [facility]
[address] [place] [address], * (ABNORMAL) Urinalysis, Microscopic Only - Urine, Clean Catch (03/24/2025 1:08 PM EDT) RBC, UA 3-5(A) None Seen, 0-2 /HPF 03/24/2025 3:45 PM EDT [facility] WBC, UA 6-10(A) None Seen, 0-2 /HPF 03/24/2025 3:45 PM EDT [facility] Bacteria, UA Trace(A) None Seen /HPF 03/24/2025 3:45 PM EDT [facility] Squamous Epithelial Cells, UA 0-2 None Seen, 0-2 /HPF 03/24/2025 3:45 PM EDT [facility] Hyaline Casts, UA 0-2 None Seen /LPF 03/24/2025 3:45 PM EDT [facility] Methodology Manual Light Microscopy 03/24/2025 3:45 PM EDT [facility] Urine Urine specimen obtained by clean catch procedure / Unknown Collection / Unknown 03/24/2025 1:08 PM EDT 03/24/2025 3:12 PM EDT Demarcus Ames MD URINE ORDERABLES Final Re sult [facility]
[address] [place] [address], * (ABNORMAL) Urinalysis With Culture If Indicated - Urine, Clean Catch (03/24/2025 1:08 PM EDT) Color, UA Yellow Yellow, Straw 03/24/2025 3:31 PM EDT [facility] Appearance, UA Clear Clear 03/24/2025 3:31 PM EDT [facility] pH, UA 5.5 5.0 - 8.0 03/24/2025 3:31 PM EDT [facility] Specific [place], UA 1.010 1.005 - 1.030 03/24/2025 3:31 PM EDT [facility] Glucose, UA >=1000 mg/dL (3+)(A) Negative 03/24/2025 3:31 PM EDT [facility] Ketones, UA Negative Negative 03/24/2025 3:31 PM EDT [facility] Bilirubin, UA Negative Negative 03/24/2025 3:31 PM EDT [facility] Blood, UA Small (1+)(A) Negative 03/24/2025 3:31 PM EDT [facility] Protein, UA Negative Negative 03/24/2025 3:31 PM EDT [facility] Leuk Esterase, UA Small (1+)(A) Negative 03/24/2025 3:31 PM EDT [facility] Nitrite, UA Negative Negative 03/24/2025 3:31 PM EDT [facility] Urobilinogen, UA 0.2 E.U./dL 0.2 - 1.0 E.U./dL 03/24/2025 3:31 PM EDT [facility] Urine Urine specimen obtained by clean catch procedure / Unknown Collection / Unknown 03/24/2025 1:08 PM EDT 03/24/2025 3:12 PM EDT [facility] - 03/24/2025 3:31 PM EDT In absence of clinical symptoms, the presence of pyuria, bacteria, and/or nitrites on the urinalysis result does not correlate with infection. Demarcus Ames MD URINE ORDERABLES Final Re sult Performing Organization Address [facility]/ZIP Co de Phone Number [facility]
[address] [place] [address], * Urine Culture - Urine, Urine, Clean Catch (03/24/2025 1:08 PM EDT) Urine Culture <25,000 CFU/mL Normal Urogenital Martina TOMASA 03/25/2025 11:10 AM EDT [facility] Urine Urine specimen obtained by clean catch procedure / Unknown Collection / Unknown 03/24/2025 1:08 PM EDT 03/24/2025 3:12 PM EDT [facility] - 03/25/2025 11:10 AM EDT Colonization of the urinary tract without infection is common. Treatment is discouraged unless the patient is symptomatic, , or undergoing an invasive urologic procedure. Demarcus Ames MD MICROBIOLOGY - GENERAL OR DERABLES Final Result Performing Organization Address City/[facility]/ZIP Co de Phone Number [facility]
[address] [place] [address], [place] [phone] from Last 3 Months Insurance [facility] Care Teams Veterinary Technology Instructor Relationship Specialty Start Date End Date Juarez Griffin MD [address] [facility] [address] [place] [address] PCP - General Internal Medicine 05/30/23
--- OUTSIDE RECORDS SUMMARY | 2025-06-18 14:55 | XMS_ITS | Clinical Summary ---
Author Organization [facility] Address [address] [facility] [address] [place] [address] Phone Care Team Providers Care Lime Kiln Operator Name Role Phone Zofia Perkins Unavailable Unavailable Conditions or Problems Problem Name Problem Code Onset Date Status Entry Date Provider Comment Standard Description Annotate Acute Pyelonephritis 54695511 (SNOMED CT) 01/07 Active 01/07 Malina Ames Acute pyelonephritis Obstructive uropathy with infection N13.6 (ICD-10-C M) 01/07 Active 01/07 Malina Ames Pyonephrosis Neutrophilic leukemoid reaction D72.823 (ICD-10-C M) 01/07 Active 01/07 Malina Ames Leukemoid reaction COPD 18056575 (SNOMED CT) 01/07 Active 01/07 Malina Ames Chronic obstructive pulmonary disease Morbid obesity due to excess calories E66.01 (ICD-10-C M) 01/07 Active 01/07 Malina Ames Morbid (severe) obesity due to excess calories DM Type II E11.9 (ICD-10-C M) 01/07 Active 01/07 Malina Ames Type 2 diabetes mellitus without complications Benign hypertensive heart disease with chronic diastolic heart failure (I50.32) 74899373 (SNOMED CT) 01/07 Active 01/07 Malina Ames Benign hypertension Medications Medication Instructions Start Date Stop Date Generic Name [facility] Provider FOSFOMYCIN TROMETHAMINE 3 GM PACK Take 1 packet by mouth as directed take 1 packet every 3-4 days (2 times weekly) fosfomycin tromethamine 10372816430 Calvin Villarreal MD PREDNISONE 20 MG TABS prednisone 04643559669 Milly Jabierbrianne VITAMIN C 500 MG CAPS twice a day ascorbic acid (vitamin c) 36923876240 Milly Mosquera HIPREX 1 GM TABS Take 1 tablet by mouth twice a day 02/18 methenamine hippurate 89665426710 Calvin Villarreal MD INDOMETHACIN 50 MG CAPS Take 1 capsule by mouth three times a day indomethacin 54013164282 Linda De Leon SUCRALFATE 1 GM TABS Take 1 tablet by mouth four times a day sucralfate 24166684457 Linda De Leon BUMETANIDE 2 MG TABS Take 1 tablet by mouth twice a day bumetanide 93331640352 Linda De Leon PRAVASTATIN SODIUM 10 MG TABS Take 1 tablet by mouth every night pravastatin 65530881213 Linda De Leon ENTRESTO 24-26 MG TABS Take 1 tablet by mouth twice a day sacubitril-valsa rtan 66465173517 Linda De Leon VENTOLIN HFA 108 (90 Base) MCG/ACT AERS Inhale 2 puff by mouth every four to six hours as needed albuterol sulfate 36198776098 Linda De Leon ADVAIR DISKUS 250-50 MCG/ACT AEPB Inhale 1 puff twice a day fluticasone propion-salmeter ol 90457391550 Linda De Leon OMEPRAZOLE 20 MG CPDR Take 1 capsule by mouth once a day omeprazole 19215064312 Linda De Leon METFORMIN HCL 500 MG TABS Take 1 tablet by mouth twice a day metformin 64058498385 Linda De Leon FARXIGA 10 MG TABS Take 10 mg by mouth once a day dapagliflozin propanediol 92059879352 Linda De Leon IBUPROFEN (IBUPROFEN) 800 MG TABS Take 1 tablet by mouth every six hours as needed IBUPROFEN Linda De Leon TIZANIDINE HCL 4 MG TABS Take 1 tablet by mouth as needed tizanidine 74629152983 Linda De Leon TRAMADOL HCL 50 MG TABS every twelve hours tramadol 26046349294 Linda De Leon NITROGLYCERIN 0.[address] 1 tablet under tongue as needed nitroglycerin 23920896236 Linda Moises ONDANSETRON HCL 4 MG TABS Take 1 tablet by mouth every eight hours as needed ondansetron hcl 16902132607 Linda Moises SPIRONOLACTONE 50 MG TABS Take 1 tablet by mouth once a day spironolactone 46924059753 Linda De Leon SITagliptin (JANUVIA) 25 MG tablet Take 1 tablet by mouth once a day JANOLIVER De Leon NEBIVOLOL HCL 5 MG TABS Take 1 tablet by mouth once a day nebivolol 03147506670 Jazieltyree De Leon GLYXAMBI 10-5 MG TABS Take 1 tablet by mouth once a day empagliflozin-li nagliptin 60588508081 Linda De Leon VENTOLIN HFA 108 (90 Base) MCG/ACT AERS INHALE TWO PUFFS BY MOUTH EVERY 4 TO 6 HOURS NEEDED 01/19 albuterol sulfate 93308706410 QIE qieuser TRAMADOL HCL 50 MG TABS Every 12 (Twelve) Hours. 01/19 tramadol 61399481525 QIE qieuser TIZANIDINE HCL 4 MG TABS Take 1 tablet by mouth As Needed. 01/19 tizanidine 47067797961 QIE qieuser SUCRALFATE 1 GM TABS Take 1 tablet by mouth 4 (Four) Times a Day. 01/19 sucralfate 77238375897 QIE qieuser SPIRONOLACTONE 50 MG TABS TAKE ONE TABLET BY MOUTH EVERY DAY 01/19 spironolactone 35784561720 QIE qieuser SITagliptin (JANUVIA) 25 MG tablet Take 1 tablet by mouth Daily. 01/19 JANUVIA QIE qieuser PRAVASTATIN SODIUM 10 MG TABS TAKE ONE TABLET BY MOUTH EVERY DAY AT BEDTIME 01/19 pravastatin 16277753688 QIE qieuser ONDANSETRON HCL 4 MG TABS Take 1 tablet by mouth Every 8 (Eight) Hours As Needed. 04/27 ondansetron hcl 06590153158 QIE qieuser OMEPRAZOLE 20 MG CPDR TAKE ONE CAPSULE BY MOUTH EVERY DAY 04/27 omeprazole 14851138396 QIE qieuser O2 (OXYGEN) 2 L by Alternating Nares route Every Night. OXYGEN QIE qieuser NITROGLYCERIN 0.[address] 1 tablet under the tongue As Needed for Chest Pain. 01/19 nitroglycerin 53291543142 QIE qieuser NEBIVOLOL HCL 5 MG TABS TAKE ONE TABLET BY MOUTH EVERY DAY 01/19 nebivolol 94236376004 QIE qieuser METFORMIN HCL 500 MG TABS Take 1 tablet by mouth 2 (Two) Times a Day. 01/19 metformin 69329317593 QIE qieuser IPRATROPIUM-ALBUT MIK 0.5-2.5 (3) MG/3ML SOLN ipratropium-albu terol 47993668752 QIE qieuser INDOMETHACIN 50 MG CAPS Take 1 capsule by mouth 3 (Three) Times a Day With Meals. 01/19 indomethacin 92199904268 QIE qieuser IBUPROFEN (IBUPROFEN) 800 MG TABS Take 1 tablet by mouth Every 6 (Six) Hours As Needed. 01/19 IBUPROFEN QIE qieuser ENTRESTO 24-26 MG TABS TAKE ONE TABLET BY MOUTH TWICE DAILY 01/19 sacubitril-valsa rtan 14788123370 QIE qieuser GLYXAMBI 10-5 MG TABS Take 1 tablet by mouth Daily. 01/19 empagliflozin-li nagliptin 76814101313 QIE qieuser FARXIGA 10 MG TABS Take 10 mg by mouth Daily. 01/19 dapagliflozin propanediol 84302445599 QIE qieuser BUMETANIDE 2 MG TABS TAKE ONE TABLET BY MOUTH TWICE DAILY 01/19 bumetanide 28624948462 QIE qieuser ADVAIR DISKUS 250-50 MCG/ACT AEPB Inhale 1 puff 2 (Two) Times a Day. 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
--- OUTSIDE RECORDS SUMMARY | 2025-06-18 14:55 | XMS_ITS | Encounter Summary ---
Author Organization [facility] Address [address] [place] [address] Care Team Providers Care Traffic Routing Engineer Name Role Phone Juarez Griffin MD Primary Care Provider [phone] Karen Naqvi DO Unavailable [phone] Encounter Details Date Type Department Care Team ([facility] st Contact Info) Description 02/12/2024 Orders Only External Location [address] [place] [address] Gennaro Cuevas MD [facility] [address] [address] Social History Tobacco Use Types Packs/Day Years [...] documented as of this encounter Care Teams Traffic Routing Engineer Relationship Specialty Start Date End Date Juarez Griffin MD [address] [place] [address] PCP - General 03/10/21 Karen Naqvi DO [facility] [address] [place] [address] Referring Physician Obstetrics and Gynecology 09/23/24 documented as of this encounter
[2025-06-18 15:00] VITALS: BP 104/55; PULSE 66; RESP 20; TEMP 36.6; O2SAT 95
[2025-06-18] MEDS: ERTAPENEM SODIUM 1 GM VIAL IM (15:00)
== END 2025-06-18 15:20 | disposition home or self-care (01) ==
LOC: INF 14:52
PROVIDERS: PCP Internal Medicine; Visit Provider Internal Medicine
DX: N39.0 Urinary tract infection, site not specified (principal)
CPT/HCPCS: 96372; J1335

== ENCOUNTER 2025-06-19 14:44 | Outpatient (CLI) | payer OTHER, SELFPAY ==
--- OUTSIDE RECORDS SUMMARY | 2025-05-03 13:30 | XMS_ITS | Encounter Summary ---
Author Organization [facility] Address [address] [place] [address] Care Team Providers Care Manager Food Safety Name Role Phone Juarez Griffin MD Primary Care Provider [phone] Reason for Visit * Reason Comments Edema [...] Description 05/03/2025 1:30 PM EDT Office Visit [facility] CARDIOLOGY [address] [place] [address] Yaneth Ugarte MD [address] [place] [address] Hypercholesterolemia (Primary Dx); PVC (premature ventricular contraction); Precordial chest pain; Swelling of lower extremity Social History Tobacco Use Types Packs/Day Years Used Date Smoking Tobacco: Never Passive Smoke Exposure: Never Smokeless Tobacco: Never Tobacco Cessation:Counseling Given: Yes Alcohol Use Standard Drinks/Week Comments Not Currently 0 (1 standard drink = 0.6 oz pur e alcohol) Maybe 3 drinks annually [facility] Utilities Answer Date Recorded In the [...] and heating? Not hard at all 04/16/2024 [facility] of Occupat ional Health - Occupational Stress [...] or training? Not on file Preferred Language Prydeinig 02/25/2025 PHQ-2 Answer Date Recorded Retired PHQ-9: [...] MG/0.1ML nasal spray, Call 911. Don't prime. [place] in 1 nostril for overdose. Repeat in [...] Chronic chest pain followed by Dr. Ugarte -[facility] 03/05/24 Chronic diastolic (congestive) heart failure [...] file. Laura Ugarte MD Cardiology and Sleep [facility] 05/03/2025 Please note that this [...] Info) Description 07/01/2025 1:00 PM EDT Appointment [facility] [place] [address] [place] [address] 07/01/2025 2:00 PM EDT Appointment [facility] CT [facility] [place] [address] [place] [address] 07/06/2025 1:00 PM EDT Office Visit [facility] UROLOGY [address] [phone] Teressa Finley, SALES MARKETING COORDINATOR [address] [address] 11/01/2025 1:30 PM EST Office Visit [facility] CARDIOLOGY [address] [address] Yaneth Ugarte MD [address] [place] [address] documented as of this encounter Procedures [...] OOPHORECTOMY PARATHYROIDECTOMY N/A 03/04/2025 Procedure: PARATHYROIDECTOMY; Surgeon: aZc Mckeon MD;Location: [facility] OR; Service: General; Laterality: N/A; PERCUTANEOUS NEPHROSTOLITHOTOMY Right 04/15/2024 Procedure: CYSTOSCOPY & BALLOON OCCLUSION CATHETER PLACEMENT, PRIMARYPERCUTANEOUS ACCESS, NEPHROSTOLITHOTOMY PERCUTANEOUS, WITH STENT EXCHANGE;Surgeon: Demarcus Ames MD; Location: [facility] OR; Service:Urology; Laterality: Right; PERCUTANEOUS NEPHROSTOLITHOTOMY [...] on file. Laura Ugarte MD Cardiology and [facility] 05/03/2025 Please note that [...] extremity documented in this encounter Care Teams Manager Food Safety Relationship Specialty Start Date End Date Juarez Griffin MD [address]10 [facility] [address] [place] [address] PCP - General Internal Medicine 05/30/23 documented as of this encounter
--- OUTSIDE RECORDS SUMMARY | 2025-06-19 14:47 | XMS_ITS | Encounter Summary ---
[facility] Address [address] [place] [id number] Care Team Providers Care Peoplesoft Hcm Consultant Name Role Phone Juarez Griffin MD Primary Care Provider [phone] Encounter Details Date Type Department Care Team (Late st Contact Info) Description 04/29/2025 Telephone [facility] CARDIOLOGY [address] [place] [address] Yaneth Ugarte MD [address] [place] [address] Social History Tobacco Use Types Packs/Day Years Used Date Smoking Tobacco: Never Passive Smoke Exposure: Never Smokeless Tobacco: Never Alcohol Use Standard Drinks/Week Comments Not Currently 0 (1 standard drink = 0.6 oz pur e alcohol) Maybe 3 drinks annually [facility] Utilities Answer Date Recorded In the past 12 months has [employer], gas, oil, or water [employer] threatened to shut off services in your [...] and heating? Not hard at all 04/16/2024 [place] of Occupat ional Health - Occupational Stress [...] Info) Description 07/01/2025 1:00 PM EDT Appointment [facility]OUND [facility] [place] [address] [place] [address] 07/01/2025 2:00 PM EDT Appointment [facility] AT [place] [address] [place] [address] 07/06/2025 1:00 PM EDT Office Visit [facility] UROLOGY [address] [place] [address] Teressa Finley, PREETI [address] [place] [address] 11/01/2025 1:30 PM EST Office Visit [facility] CARDIOLOGY [address] [place] [address] Yaneth Ugarte MD [address] [place] [address] documented as of this encounter Visit Diagnoses Not on filedocumented in this encounter Care Teams Peoplesoft Hcm Consultant Relationship Specialty Start Date End Date Juarez Griffin MD [address] [place] [facility] [address] [place] [address] PCP - General Internal Medicine 05/30/23 documented as of this encounter
--- OUTSIDE RECORDS SUMMARY | 2025-06-19 14:47 | XMS_ITS | Encounter Summary ---
[facility] Address [address] [place] [address] Care Team Providers Care Director Of Research Name Role Phone Juarez Griffin MD Primary Care Provider [phone] Encounter Details Date Type Department Care Team (Late st Contact Info) Description 05/10/2025 Results Follow-Up [facility] CARDIOLOGY [address] [place] [address] Yaneth Ugarte MD [address] [place], [place] [id number] Social History Tobacco Use Types Packs/Day Years Used Date Smoking Tobacco: Never Passive Smoke Exposure: Never Smokeless Tobacco: Never Alcohol Use Standard Drinks/Week Comments Not Currently 0 (1 standard drink = 0.6 oz pur e alcohol) Maybe 3 drinks annually [facility] Utilities Answer Date Recorded In the past 12 months has [employer], gas, oil, or water [employer] threatened to shut off services in your [...] and heating? Not hard at all 04/16/2024 [place] of Occupat ional Health - Occupational Stress [...] or training? Not on file Preferred Language Uzbek 02/25/2025 PHQ-2 Answer Date Recorded Retired PHQ-9: [...] Info) Description 07/01/2025 1:00 PM EDT Appointment [facility] ULTR[facility]OUND AT [place] [address] [place] [address] 07/01/2025 2:00 PM EDT Appointment [facility] [address] [facility] [place] [address] [place] [address] 07/06/2025 1:00 PM EDT Office Visit [facility] UROLOGY [address] [address] Teressa Finley, PREETI [address] [id number] 11/01/2025 1:30 PM EST Office Visit [facility] CARDIOLOGY [address] [place] [address] Yaneth Ugarte MD [address] [place] [address] documented as of this encounter Visit Diagnoses Not on filedocumented in this encounter Care Teams Director Of Research Relationship Specialty Start Date End Date Juarez Griffin MD [address] [facility] [address] [place] [address] PCP - General Internal Medicine 05/30/23 documented as of this encounter
--- OUTSIDE RECORDS SUMMARY | 2025-06-19 14:47 | XMS_ITS | Encounter Summary ---
[facility] Address [address] [place] [address] Care Team Providers Care Social Service Liaison Name Role Phone Juarez Griffin MD Primary Care Provider [phone] Encounter Details Date Type Department Care Team (Late st Contact Info) Description 05/11/2025 Telephone [facility] CARDIOLOGY [address] [place] [address] Shell Diaz RegSched Rep Social History Tobacco Use Types Packs/Day Years Used Date Smoking Tobacco: Never Passive Smoke Exposure: Never Smokeless Tobacco: Never Alcohol Use Standard Drinks/Week Comments Not Currently 0 (1 standard drink = 0.6 oz pur e alcohol) Maybe 3 drinks annually [facility] Utilities Answer Date Recorded In the past 12 months has [employer], gas, oil, or water company threatened [...] and heating? Not hard at all 04/16/2024 [facility] [place] of Occupat ional Health - Occupational Stress [...] Info) Description 07/01/2025 1:00 PM EDT Appointment [facility] ULTR[facility]OUND AT [place] [address] [place] [address] 07/01/2025 2:00 PM EDT Appointment [facility] [address] [facility] [place] [address] [place] [address] 07/06/2025 1:00 PM EDT Office Visit [facility] UROLOGY [address] [phone] Teressa Finley, VAT CLEANER [address] [facility] [address] [place], [place] [id number] 11/01/2025 1:30 PM EST Office Visit [facility] CARDIOLOGY [address] [place] [address] Yaneth Ugarte MD [address] [place] [address] documented as of this encounter Visit Diagnoses Not on filedocumented in this encounter Care Teams Social Service Liaison Relationship Specialty Start Date End Date Juarez Griffin MD [address] [place] [facility] [address] [facility] [address] [place] [address] PCP - General Internal Medicine 05/30/23 documented as of this encounter
--- OUTSIDE RECORDS SUMMARY | 2025-06-19 14:47 | XMS_ITS | Encounter Summary ---
Author Organization [facility] Address [address] [place] [id number] Care Team Providers Care Treatment Technician Name Role Phone Juarez Griffin MD Primary Care Provider [phone] Encounter Details Date Type Department Care Team (Late st Contact Info) Description 05/03/2025 Patient rounding ([facility]) [facility] CARDIOLOGY [address] [place] [address] Yaneth Ugarte MD [address] [place] [address] Social History Tobacco Use Types Packs/Day Years Used Date Smoking Tobacco: Never Passive Smoke Exposure: Never Smokeless Tobacco: Never Alcohol Use Standard Drinks/Week Comments Not Currently 0 (1 standard drink = 0.6 oz pur e alcohol) Maybe 3 drinks annually [facility] Utilities Answer Date Recorded In the past 12 months has [employer], gas, oil, or water [employer] threatened to shut off services in your [...] heating? Not hard at all 04/16/2024 [facility] [place] of Occupat ional Health - Occupational Stress [...] or training? Not on file Preferred Language Romanian 02/25/2025 PHQ-2 Answer Date Recorded Retired PHQ-9: [...] is Landy Alonzo and I am the Development Disability Specialist for [facility] Cardiology [facility]. I would like to thank you [...] first visit to us as a [facility] facility? In the next few days, you will be receiving a Patient Experience Survey. Thank you for taking the time to answer a few questions today. I hope you have a good day. documented in this encounter Plan of Treatment Upcoming Encounters Date Type Department Care Team (Late st Contact Info) Description 07/01/2025 1:00 PM EDT Appointment [facility] UL[facility]OUND [place] [address] [place] [id number] 07/01/2025 2:00 PM EDT Appointment [facility] [address] [facility] [place] [address] [place] [address] 07/06/2025 1:00 PM EDT Office Visit [facility] UROLOGY [address] [place] [address] Teressa Finley, SMOKE ROOM OPERATOR [address] [place] [address] 11/01/2025 1:30 PM EST Office Visit [facility] CARDIOLOGY [address] [place] [address] Yaneth Ugarte MD [address] [place] [address] documented as of this encounter Visit Diagnoses Not on filedocumented in this encounter Care Teams Treatment Technician Relationship Specialty Start Date End Date Juarez Griffin MD [address] [place] [facility] [address] [facility] [address] [place] [address] PCP - General Internal Medicine 05/30/23 documented as of this encounter
--- OUTSIDE RECORDS SUMMARY | 2025-06-19 14:47 | XMS_ITS | Encounter Summary ---
Author Organization [facility] Address [address] [place] [address] Care Team Providers Care Navigation Officer Name Role Phone Juarez Griffin MD Primary Care Provider [phone] Encounter Details Date Type Department Care Team (Latest Contact Info) Description 05/03/2025 Travel Social History Tobacco Use Types Packs/Day Years Used Date Smoking Tobacco: Never Passive Smoke Exposure: Never Smokeless Tobacco: Never Alcohol Use Standard Drinks/Week Comments Not Currently 0 (1 standard drink = 0.6 oz pur e alcohol) Maybe 3 drinks annually [facility] Utilities Answer Date Recorded In the past 12 months has [employer], gas, oil, or water [employer] threatened to shut off services in your [...] all 04/16/2024 [facility] [place] of Occupat ional Health - Occupational Stress [...] EDT Appointment [facility] [place] [address] [place] [address] 07/01/2025 2:00 PM EDT Appointment [facility] [place] [address] [place] [address] 07/06/2025 1:00 PM EDT Office Visit [facility] UROLOGY [address] [facility] [address] [place] [address] Teressa Finley, PREETI [address] [address] 11/01/2025 1:30 PM EST Office Visit [facility] CARDIOLOGY [address] [place] [address] Yaneth Ugarte MD [address] [place] [address] documented as of this encounter Visit Diagnoses Not on filedocumented in this encounter Care Teams Navigation Officer Relationship Specialty Start Date End Date Juarez Griffin MD [address] [place] [facility] [address] [place] [address] PCP - General Internal Medicine 05/30/23 documented as of this encounter
--- OUTSIDE RECORDS SUMMARY | 2025-06-19 14:48 | XMS_ITS | Encounter Summary ---
Author Organization [facility] Address [address] [place] [address] Care Team Providers Care Clinical Informatics Spec Name Role Phone Juarez Griffin MD Primary Care Provider [phone] Karen Naqvi DO Unavailable [phone] Encounter Details Date Type Department Care Team ([facility] st Contact Info) Description 02/12/2024 Orders Only External Location [address] [place] [address] Gennaro Cuevas MD [facility] [address] [place] [address] Social History Tobacco Use Types Packs/Day Years [...] Comment:+ 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 Source: [facility]. This patient will require contact precautions indefinitely. 04/01/2024 documented as of this encounter Care Teams Clinical Informatics Spec Relationship Specialty Start Date End Date Juarez Griffin MD [address] [place] [address] PCP - General 03/10/21 Karen Naqvi DO [facility] [address] [place] [address] Referring Physician Obstetrics and Gynecology 09/23/24 documented as of this encounter
--- OUTSIDE RECORDS SUMMARY | 2025-06-19 14:48 | XMS_ITS | Clinical Summary ---
Author Organization [facility] Address [address] [place] [id number] Care Team Providers Care Latex Foam Worker Name Role Phone Juarez Griffin MD Primary Care Provider [phone] Allergies Active Allergy Reactions Criticality Noted Date [...] s:Nephrolithias is,Recurrent UTI Call 911. Don't prime. [place] in 1 nostril for overdose. Repeat in [...] Type Department Care Team Description 05/11/2025 Telephone [facility] [address] [address] Shell Diaz RegSched Rep 05/10/2025 Results Follow-Up [facility] [address] [address] Yaneth Ugarte MD 05/03/2025 1:30 PM EDT Office Visit [facility] [address] [address] Yaneth Ugarte MD Hypercholesterolemia (Primary Dx); PVC (premature ventricular contraction); Precordial chest pain; Swelling of lower extremity 05/03/2025 Patient rounding ([facility] only) [facility] [address] [address] Yaneth Ugarte MD 05/03/2025 Travel 04/29/2025 Telephone [facility] [address] [address] Yaneth Ugarte MD 04/05/2025 9:00 AM EDT Procedure visit [facility] [address] [facility] [address] [address] Demarcus Ames MD Staghorn calculus (Primary Dx) 04/05/2025 Travel 04/01/2025 Telephone [facility] [address] [facility] [address] [address] TODD - CLINICAL 03/31/2025 10:26 AM EDT Anesthesia Event [facility] OR [address] [place] [address] Edgardo Ryan, SANDRA 03/31/2025 10:10 AM EDT - 03/31/2025 12:11 PM EDT Surgery [facility] OR [address] [place] [address] Demarcus Ames MD Percutaneous nephrolithotomy with stent placement left, cystoscopy 03/31/2025 10:05 AM EDT Anesthesia Event Converted [facility] ANESTHESIA [address] [place] [address] 03/31/2025 8:29 AM EDT - 03/31/2025 2:15 PM EDT Hospital Encounter [facility] OR [address] [place] [address] Demarcus Ames MD Staghorn calculus Discharge Disposition: Home or Self Care 03/31/2025 Telephone [facility] [address] [facility] [address] [address] TODD - POST OP FOLLOW UP 03/31/2025 Telephone [facility] [address] [place] [address] [address] TODD - SCHEDULING 03/31/2025 Travel 03/25/2025 Telephone [facility] [address] [facility] [address] [address] Demarcus Ames MD 03/24/2025 1:00 PM EDT Pre-Admission Testing [facility] PREADMISSION T [address] [place] [address] 03/24/2025 Travel from Last 3 [...] pur e alcohol) Maybe 3 drinks annually [facility] Utilities Answer Date Recorded In the past 12 months has [employer], gas, oil, or water [employer] threatened to shut off services in your [...] heating? Not hard at all 04/16/2024 [facility] [place] of Occupat ional Health - Occupational Stress [...] or training? Not on file Preferred Language Saudi Arabian 02/25/2025 PHQ-2 Answer Date Recorded Retired PHQ-9: [...] Info) Description 07/01/2025 1:00 PM EDT Appointment [facility] ULTRASOUND AT [address] [address] 07/01/2025 2:00 PM EDT Appointment [facility] CT AT [address] [address] 07/06/2025 1:00 PM EDT Office Visit [facility] [address] [address] Teressa Finley APRN [address] [address] 11/01/2025 1:30 PM EST Office Visit [facility] [address] [place] [address] [...] Completed 04/10/2024 Medical Devices Implanted Type Area Epilepsy Physician Device Identifier Shelf Expiration Date Model / Serial / Lot Kt Seal Hemos Abs Floseal Matrx Fast/Prep 5ml - [id number] Implanted:Qty : 1 on 04/15/2024 by Demarcus Ames MD at [facility] Implant Right: Kidney [employer] 05/29/2025 [id number] / / [id number] Michael Ligskylar Vasyani Wilson Md [place] 6ct - [id number] Implanted:Qty : 2 on 03/04/2025 by Zac Mckeon MD at [facility] Implant N/A: Neck [employer] [id number] / / Clip Ligat Vasc Horizon Ti Sm Yel 6ct - [id number] Implanted:Qty : 4 on 03/04/2025 by Zac Mckeon MD at [facility] Implant N/A: Neck [employer] [id number] / / Hemost Abs Surgicel Orig 4x8in Strl - [id number] Implanted:Qty : 1 on 03/04/2025 by Zac Mckeon MD at [facility] Implant N/A: Neck [employer] J [id number] / / Kt Seal Hemos Abs Floseal Matrx 1.5/Fast/Prep 5000/Iu 5ml - [id number] Implanted:Qty : 1 on 03/31/2025 by Demarcus Ames MD at [facility] Implant Left: Back [employer] 08/13/2026 [id number] / / [id number] Stnt Percuflx No Gw 7x26 - [id number] Implanted:Qty : 1 on 04/15/2024 by Demarcus Ames MD at [facility] Stent Right: Kidney [employer] 09/06/2026 [id number] / / [id number] Stnt Percuflx No Gw 7x26 - [id number] Implanted:Qty : 1 on 03/31/2025 by Demarcus Ames MD at [facility] Stent Left: Back [employer] 08/10/2027 [id number] / / [id number] Procedures Procedure Name Priority Date/Time Associated Diagnosis [...] ORDERABLES Final R esult Performing Organization Address City/[facility]/ZIP Co de Phone Number [facility]
[address] [place] [address], [place] [phone] * Magnesium (05/07/2025) Blood Yaneth Ugarte MD LAB BLOOD ORDERABLES Final R esult Performing Organization Address [facility] Co de Phone Number [facility]
[address] [place] [address], [place] [phone] * Lipid Panel (05/07/2025) Blood Yaneth Ugarte MD LAB BLOOD ORDERABLES Final R esult Performing Organization Address [facility] Co de Phone Number [facility]
[address] [place] [address], [place] [phone] * Comprehensive Metabolic Panel (05/07/2025) Blood Yaneth Ugarte MD LAB BLOOD ORDERABLES Final R esult Performing Organization Address [facility] Co de Phone Number [facility]
[address] [place] [address], [place] [phone] * ECG 12-LEAD (05/03/2025 2:22 PM EDT) [...] 03/04/2025 Procedure: PARATHYROIDECTOMY; Surgeon: Zac Mckeon MD;Location: [facility] OR; Service: General; Laterality: N/A; PERCUTANEOUS NEPHROSTOLITHOTOMY Right 04/15/2024 Procedure: CYSTOSCOPY & BALLOON OCCLUSION CATHETER PLACEMENT, PRIMARYPERCUTANEOUS ACCESS, NEPHROSTOLITHOTOMY PERCUTANEOUS, WITH STENT EXCHANGE;Surgeon: Demarcus Ames MD; Location: [facility] OR; Service:Urology; Laterality: Right; PERCUTANEOUS NEPHROSTOLITHOTOMY Left 03/31/2025 Procedure: Percutaneous nephrolithotomy with stent placement left,cystoscopy; Surgeon: Demarcus Ames MD; Location: [facility] OR;Service: Urology; Laterality: Left; TUBAL [...] file. Laura Ugarte MD Cardiology and Sleep [facility] 05/03/2025 Please note that this [...] Proteus mirabilis(A) TOMASA 04/03/2025 9:18 AM EDT [facility] Gram Stain No organisms seen 04/03/2025 9:18 AM EDT [facility] Calculus Left kidney structure / Unknown [...] MICROBIOLOGY - GENERAL OR DERABLES Final Result [facility]
[address] [place] [address], [place] [phone] [facility]
[address] [place] [address], [place] [phone] * STONE ANALYSIS - Calculus, Kidney, Left [...] 04/14/2025 10:06 PM EDT Performed at: - [facility] [address] [id number] Milk Receiver: Mariam Turner PhD, Phone: [phone] us Demarcus Ames MD BODY FLUIDS AND STOOLS OR DERABLES Final Result [facility] [address] [place] [address], * BH AN ETT AIRWAY (03/31/2025 10:40 AM EDT) Narrative Edgardo Ryan CRNA - 03/31/2025 10:40 AM EDT Edgardo Ryan CRNA 03/31/2025 10:41 AM Airway Reason: elective Date/Time: 03/31/2025 10:32 AM Airway not difficult General Information and Staff Patient location during procedure: OR MONORAIL HELPER/CAA: Edgardo Ryan CRNA Indications and Patient [...] - 130 mg/dL 03/31/2025 9:33 AM EDT [facility] Comment:Serial Number: [id number]: [id number] Blood 03/31/2025 9:12 AM EDT 03/31/2025 9:33 AM EDT Demarcus Ames MD POINT OF CARE TEST ORDERA BLES Final Result [facility]
[address] [place] [address], [place] [phone] * Type & Screen (03/31/2025 9:03 AM EDT) ABO Type AB 03/31/2025 10:05 AM EDT [facility] BB LABORATORY RH type Positive 03/31/2025 10:05 AM EDT [facility] Antibody Screen Negative 03/31/2025 10:05 AM EDT [facility] T&S Expiration Date 04/03/2025 11:59:59 PM 03/31/2025 10:05 AM EDT [facility] Blood Venipuncture / Unknown 03/31/2025 9:03 AM EDT 03/31/2025 9:09 AM EDT Demarcus Ames MD BLOOD BANK TEST ORDERABLE S Edited Result - Final [facility]
[address] [place] [address], [place] [phone] * Telemetry Scan (03/31/2025) [facility] ECG ORDERABLES Final Result * CBC (No Diff) (03/24/2025 1:13 PM EDT) WBC 10.22 3.40 - 10.80 10*3/mm3 03/24/2025 3:17 PM EDT [facility] RBC 5.25 3.77 - 5.28 10*6/mm3 03/24/2025 3:17 PM EDT [facility] Hemoglobin 14.8 12.0 - 15.9 g/dL 03/24/2025 3:17 PM EDT [facility] Hematocrit 45.0 34.0 - 46.6 % 03/24/2025 3:17 PM EDT [facility] MCV 85.7 79.0 - 97.0 fL 03/24/2025 3:17 PM EDT [facility] MCH 28.2 26.6 - 33.0 pg 03/24/2025 3:17 PM EDT [facility] MCHC 32.9 31.5 - 35.7 g/dL 03/24/2025 3:17 PM EDT [facility] RDW 13.8 12.3 - 15.4 % 03/24/2025 3:17 PM EDT [facility] RDW-SD 42.9 37.0 - 54.0 fl 03/24/2025 3:17 PM EDT [facility] MPV 11.2 6.0 - 12.0 fL 03/24/2025 3:17 PM EDT [facility] Platelets 326 140 - 450 10*3/mm3 03/24/2025 3:17 PM EDT [facility] Blood Line / Unknown 03/24/2025 1: 13 PM EDT 03/24/2025 3:13 PM EDT Demarcus Ames MD LAB BLOOD ORDERABLES Maria E hwang Result [facility]
[address] [place] [address], * (ABNORMAL) Basic Metabolic Panel (03/24/2025 1:13 PM EDT) Glucose 120(H) 65 - 99 mg/dL 03/24/2025 3:42 PM EDT [facility] BUN 16.0 6.0 - 20.0 mg/dL 03/24/2025 3:42 PM EDT [facility] Creatinine 0.90 0.57 - 1.00 mg/dL 03/24/2025 3:42 PM EDT [facility] Sodium 140 136 - 145 mmol/L 03/24/2025 3:42 PM EDT [facility] Potassium 4.1 3.5 - 5.2 mmol/L 03/24/2025 3:42 PM EDT [facility] Chloride 97(L) 98 - 107 mmol/L 03/24/2025 3:42 PM EDT [facility] CO2 26.5 22.0 - 29.0 mmol/L 03/24/2025 3:42 PM EDT [facility] Calcium 9.7 8.6 - 10.5 mg/dL 03/24/2025 3:42 PM EDT [facility] BUN/Creatinine Ratio 17.8 7.0 - 25.0 03/24/2025 3:42 PM EDT [facility] Anion Gap 16.5(H) 5.0 - 15.0 mmol/L 03/24/2025 3:42 PM EDT [facility] eGFR 77.6 >60.0 mL/min/1.7 3 03/24/2025 3:42 PM EDT [facility] Blood Line / Unknown 03/24/2025 1: 13 PM EDT 03/24/2025 3:13 PM EDT [facility] - 03/24/2025 3:42 PM EDT [...] LAB BLOOD ORDERABLES Maria E jaiden Result [facility]
[address] [place] [address], * (ABNORMAL) Urinalysis, Microscopic Only - Urine, Clean Catch (03/24/2025 1:08 PM EDT) RBC, UA 3-5(A) None Seen, 0-2 /HPF 03/24/2025 3:45 PM EDT [facility] WBC, UA 6-10(A) None Seen, 0-2 /HPF 03/24/2025 3:45 PM EDT [facility] Bacteria, UA Trace(A) None Seen /HPF 03/24/2025 3:45 PM EDT [facility] Squamous Epithelial Cells, UA 0-2 None Seen, 0-2 /HPF 03/24/2025 3:45 PM EDT [facility] Hyaline Casts, UA 0-2 None Seen /LPF 03/24/2025 3:45 PM EDT [facility] Methodology Manual Light Microscopy 03/24/2025 3:45 PM EDT [facility] Urine Urine specimen obtained by clean catch procedure / Unknown Collection / Unknown 03/24/2025 1:08 PM EDT 03/24/2025 3:12 PM EDT Demarcus Ames MD URINE ORDERABLES Final Re sult [facility]
[address] [place] [address], * (ABNORMAL) Urinalysis With Culture If Indicated - Urine, Clean Catch (03/24/2025 1:08 PM EDT) Color, UA Yellow Yellow, Straw 03/24/2025 3:31 PM EDT [facility] Appearance, UA Clear Clear 03/24/2025 3:31 PM EDT [facility] pH, UA 5.5 5.0 - 8.0 03/24/2025 3:31 PM EDT [facility] Specific [place], UA 1.010 1.005 - 1.030 03/24/2025 3:31 PM EDT [facility] Glucose, UA >=1000 mg/dL (3+)(A) Negative 03/24/2025 3:31 PM EDT [facility] Ketones, UA Negative Negative 03/24/2025 3:31 PM EDT [facility] Bilirubin, UA Negative Negative 03/24/2025 3:31 PM EDT [facility] Blood, UA Small (1+)(A) Negative 03/24/2025 3:31 PM EDT [facility] Protein, UA Negative Negative 03/24/2025 3:31 PM EDT [facility] Leuk Esterase, UA Small (1+)(A) Negative 03/24/2025 3:31 PM EDT [facility] Nitrite, UA Negative Negative 03/24/2025 3:31 PM EDT [facility] Urobilinogen, UA 0.2 E.U./dL 0.2 - 1.0 E.U./dL 03/24/2025 3:31 PM EDT [facility] Urine Urine specimen obtained by clean catch procedure / Unknown Collection / Unknown 03/24/2025 1:08 PM EDT 03/24/2025 3:12 PM EDT [facility] - 03/24/2025 3:31 PM EDT In absence of clinical symptoms, the presence of pyuria, bacteria, and/or nitrites on the urinalysis result does not correlate with infection. Demarcus Ames MD URINE ORDERABLES Final Re sult Performing Organization Address [facility]/ZIP Co de Phone Number [facility]
[address] [place] [address], * Urine Culture - Urine, Urine, Clean Catch (03/24/2025 1:08 PM EDT) Urine Culture <25,000 CFU/mL Normal Urogenital Martina TOMASA 03/25/2025 11:10 AM EDT [facility] Urine Urine specimen obtained by clean catch procedure / Unknown Collection / Unknown 03/24/2025 1:08 PM EDT 03/24/2025 3:12 PM EDT [facility] - 03/25/2025 11:10 AM EDT Colonization of the urinary tract without infection is common. Treatment is discouraged unless the patient is symptomatic, , or undergoing an invasive urologic procedure. Demarcus Ames MD MICROBIOLOGY - GENERAL OR DERABLES Final Result Performing Organization Address City/[facility]/ZIP Co de Phone Number [facility]
[address] [place] [address], [place] [phone] from Last 3 Months Insurance [facility] Care Teams Latex Foam Worker Relationship Specialty Start Date End Date Juarez Griffin MD [address] [facility] [address] [place] [address] PCP - General Internal Medicine 05/30/23
--- OUTSIDE RECORDS SUMMARY | 2025-06-19 14:48 | XMS_ITS | Encounter Summary ---
[facility] Address [address] [place] [id number] Care Team Providers Care Edge Blacker Name Role Phone Juarez Griffin MD Primary Care Provider Encounter Details Date Type Department Care Team (Late st Contact Info) Description 04/16/2024 Retail Pharmacy Consultation [facility] [place] [address] [place] [address] [facility] [address] [place], [place] [id number] Social History Tobacco Use Types Packs/Day Years Used Date Smoking Tobacco: Never Passive Smoke Exposure: Never Smokeless Tobacco: Never Alcohol Use Standard Drinks/Week Comments Yes 0 (1 standard drink = 0.6 oz pur e alcohol) rarely C Utilities Answer Date Recorded In the past 12 months has [employer], gas, oil, or water [employer] threatened to shut off services in your [...] and heating? Not hard at all 04/16/2024 [facility] [place] of Occupat ional Health - Occupational Stress [...] GED or equivalent No 04/16/2024 Preferred Language Kinyarwanda 04/16/2024 PHQ-2 Answer Date Recorded Retired PHQ-9: [...] Info) Description 07/01/2025 1:00 PM EDT Appointment [facility] [place] [address] [place] [address] 07/01/2025 2:00 PM EDT Appointment [facility] AT [place] [address] [place] [address] 07/06/2025 1:00 PM EDT Office Visit [facility] [address] [address] Teressa Finley APRN [address] [address] 11/01/2025 1:30 PM EST Office Visit [facility] CARDIOLOGY [address] [address] Yaneth Ugarte MD [address] [address] documented as of this encounter Visit Diagnoses Not on filedocumented in this encounter Additional Health Concerns Infection Onset Date Last Indicated Resolved Time ESBL 04/01/2024 04/01/2024 03/03/2025 6:48 AM EDT documented as of this encounter Care Teams Edge Blacker Relationship Specialty Start Date End Date Juarez Griffin MD [address] [place] [address] PCP - General Internal Medicine 05/30/23 documented as of this encounter
--- OUTSIDE RECORDS SUMMARY | 2025-06-19 14:48 | XMS_ITS | Encounter Summary ---
[facility] Organization [facility] Address [address] [place] [address] Care Team Providers Care Otr Flatbed Driver Name Role Phone Juarez Griffin MD Primary Care Provider [phone] Reason for Visit * Reason Onset Date Comments DR AMES - POST OP FOLLOW UP 03/31/2025 Encounter Details Date Type Department Care Team (Late st Contact Info) Description 03/31/2025 Telephone [facility] [address] [facility] [address] [address] Demarcus Ames MD [address] [address] [address] AMES - POST OP FOLLOW UP Social History Tobacco Use Types Packs/Day Years Used Date Smoking Tobacco: Never Passive Smoke Exposure: Never Smokeless Tobacco: Never Alcohol Use Standard Drinks/Week Comments Not Currently 0 (1 standard drink = 0.6 oz pur e alcohol) Maybe 3 drinks annually [facility] Utilities Answer Date Recorded In the past 12 months has [employer], gas, oil, or water [employer] threatened to shut off services in your [...] and heating? Not hard at all 04/16/2024 [facility] [place] [facility] - Occupational Stress Questionnaire Answer [...] or training? Not on file Preferred Language Belarusian 02/25/2025 PHQ-2 Answer Date Recorded Retired PHQ-9: [...] 9:18 AM EDT Cathy Curtis RN * [place] Suicide Severity Rating Scale (Screener/Recent Self-Report) Question Answer Date of Assessment Author 6. Suicidal Behavior (Lifetime) No 9:18 AM EDT Vandana Curtis RN documented as of this encounter Miscellaneous Notes * Telephone Encounter - Emily Mendez CMA - 03/31/2025 2:54 PM EDT Pt scheduled with motel front desk attendant JUAN MIGUEL Christianson * [...] Description 07/01/2025 1:00 PM EDT Appointment [facility] [place] [address] [place] [address] 07/01/2025 2:00 PM EDT Appointment [facility] CT AT [place] [address] [place] [address] 07/06/2025 1:00 PM EDT Office Visit [facility] [address] [place] [address] Teressa Finley APRN [address] [facility] [address] [place] [address] 11/01/2025 1:30 PM EST Office Visit [facility] CARDIOLOGY [address] [place] [address] Yaneth Ugarte MD [address] [place] [address] documented as of this encounter Visit Diagnoses Not on filedocumented in this encounter Care Teams Otr Flatbed Driver Relationship Specialty Start Date End Date Juarez Griffin MD [address] [facility] [address] [place] [id number] PCP - General Internal Medicine 05/30/23 documented as of this encounter
--- OUTSIDE RECORDS SUMMARY | 2025-06-19 14:48 | XMS_ITS | Encounter Summary ---
[facility] Address [address] [place] [id number] Care Team Providers Care Fluid Designer Name Role Phone Juarez Griffin MD Primary Care Provider [phone] Encounter Details Date Type Department Care Team (Late st Contact Info) Description 04/20/2024 Telephone [facility] UROLOGY [address] [facility] [address] [address] Demarcus Ames MD [address] [address] Social History Tobacco Use Types Packs/Day Years Used Date Smoking Tobacco: Never Passive Smoke Exposure: Never Smokeless Tobacco: Never Alcohol Use Standard Drinks/Week Comments Yes 0 (1 standard drink = 0.6 oz pur e alcohol) rarely [facility] Utilities Answer Date Recorded In the past 12 months has [employer], gas, oil, or water [employer] threatened to shut off services in your [...] and heating? Not hard at all 04/16/2024 [employer] [place] of Occupat ional Health - Occupational Stress [...] GED or equivalent No 04/16/2024 Preferred Language Swedish 04/16/2024 PHQ-2 Answer Date Recorded Retired PHQ-9: [...] EDT Appointment [facility] [place] [address] [place] [address] 07/01/2025 2:00 PM EDT Appointment [facility] [address] [place] [address] [place] [address] 07/06/2025 1:00 PM EDT Office Visit [facility] UROLOGY [address] [address] Teressa Finley, RV SERVICE TECHNICIAN [address] [address] 11/01/2025 1:30 PM EST Office Visit [facility] CARDIOLOGY [address] [address] Yaneth Ugarte MD [address] [address] documented as of this encounter Visit Diagnoses Not on filedocumented in this encounter Additional Health Concerns Infection Onset Date Last Indicated Resolved Time ESBL 04/01/2024 04/01/2024 03/03/2025 6:48 AM EDT documented as of this encounter Care Teams Fluid Designer Relationship Specialty Start Date End Date Juarez Griffin MD [address] [facility] [address] [place] [address] PCP - General Internal Medicine 05/30/23 documented as of this encounter
--- OUTSIDE RECORDS SUMMARY | 2025-06-19 14:48 | XMS_ITS | Clinical Summary ---
Author Organization [facility] Address [address] [place] [address] Care Team Providers Care Gill Net Stringer Name Role Phone Juarez Griffin MD Primary Care Provider [phone] Karen Naqvi DO Unavailable [phone] Allergies Active Allergy Reactions Criticality Noted Date [...] Comments Diabetes Father Wallace Heart disease Father [place] Hypertension Father Wallace Dementia Mother Marzena Hypertension Mother Marzena Cancer Mother's Brother Lino Heart disease Mother's Brother Lino Diabetes insipidus Other 1 Hypertension Other 2 Lupus Other 3 Cancer Paternal Grandfather Unknown Anesthesia problems Sister Marta Diabetes Sister Marta Heart disease Sister Marta Hypertension Sister Marta Relation Name Status Comments Father [place] Mother Marzena Mother's Brother Lino Other 1 [...] drink first t yue in the morning (EYE-KNIT GOODS WASHER) to steady your nerves or to get [...] PPSV23) 11/01/2021 09/06/2021 [facility]-Breast Cancer Screening 2023 [id number]-ISEVB-70 Vaccine (3 - season) 2024 10/07/2022, 08/21/2021 [...] this topic Medical Devices Implanted Type Area Concrete Stone Fabricating Supervisor Device Identifier Shelf Expiration Date Model / Serial / Lot Stent Ureteral Double Pigtail Pos 6fr 24cm - [id number] - [id number] Implanted:Qty: 1 on 04/11/2024 by Harvey Macdonald MD at [facility] Stent Right: U[id number] 01/02/2026 [id number] / [id number] / [id number] Loop Recorder-2016 Implanted:04/28 (Quantity not on file) [...] ORDERABLES Final Re sult [facility] [address] [place] [address] * Hepatitis C Antibody - ED (04/10/2024 6:11 PM EDT) Hepatitis C Antibody Negative Negative 04/10/2024 7:24 PM EDT [facility] Blood Venous blood specimen / Unknown Venipuncture / Unknown 04/10/2024 6:11 PM EDT 04/10/2024 6:26 PM EDT Susan Mcclure MD LAB BLOOD ORDERABLES Final Re sult Performing Organization Address City/[facility] de Phone Number [facility] [address] [place] [address] * (ABNORMAL) Hemoglobin A1c (04/10/2024 6:11 PM [...] ORDERABLES Final Re sult Performing Organization Address [facility] de Phone Number [facility] [address] [place] [address] from Last 3 Months or Most Recently Relevant to Health Maintenance Additional Health Concerns Infection Onset Date Last Indicated ESBL Comment:+ 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 Source: [facility]. This patient will require contact precautions indefinitely. 04/01/2024 Insurance [id number] [place] [id number] [facility] [facility] MEDICAID Advance Directives * Full Code (Latest Code Status on File) Date Activated Date Inactivated Comments 04/11/2024 10:12 AM 04/12/2024 3:22 PM Question Answer Comments Patient has decision-making capacity? Yes Care Teams Gill Net Stringer Relationship Specialty Start Date End Date Juarez Griffin MD [address] [facility] [address] [place] [address] PCP - General 03/10/21 Karen Naqvi DO [address] [facility] [address] [place] [address] Referring Physician Obstetrics and Gynecology 09/23/24
--- OUTSIDE RECORDS SUMMARY | 2025-06-19 14:48 | XMS_ITS | Encounter Summary ---
[facility] Address [address] [place] [address] Care Team Providers Care Nurse Aide Evaluator Name Role Phone Juarez Griffin MD Primary Care Provider [phone] Reason for Visit * Reason Onset Date Comments DR AMES - CLINICAL 04/01/2025 Encounter Details Date Type Department Care Team (Late st Contact Info) Description 04/01/2025 Telephone [facility] UROLOGY [address] [facility] [address] [address] Demarcus Ames MD [address] [address] [address] AMES - CLINICAL Social History Tobacco Use Types Packs/Day Years Used Date Smoking Tobacco: Never Passive Smoke Exposure: Never Smokeless Tobacco: Never Alcohol Use Standard Drinks/Week Comments Not Currently 0 (1 standard drink = 0.6 oz pur e alcohol) Maybe [address] [facility] Utilities Answer Date Recorded In the past 12 months has [employer], [email or web address], oil, or water [employer] threatened to shut off services in your [...] and heating? Not hard at all 04/16/2024 [facility] [place] of Occupat ional Health - Occupational Stress [...] or training? Not on file Preferred Language Egyptian 02/25/2025 PHQ-2 Answer Date Recorded Retired PHQ-9: [...] OUT TO DISCUSS BEST NUMBER IS CELL [phone] documented in this encounter Plan of Treatment Upcoming Encounters Date Type Department Care Team (Late st Contact Info) Description 07/01/2025 1:00 PM EDT Appointment [facility] UL[facility]OUND AT [place] [address] [place] [address] 07/01/2025 2:00 PM EDT Appointment [facility] [address] [place] [address] [place] [address] 07/06/2025 1:00 PM EDT Office Visit [facility]OLOGY [address] [place] [address] Teressa Finley, DATA CONTROL ASSISTANT [address] [facility] [address] [facility] [address] [place] [address] 11/01/2025 1:30 PM EST Office Visit [facility] CARDIOLOGY [address] [place] [address] Yaneth Ugarte MD [address] [place] [address] documented as of this encounter Visit Diagnoses Not on filedocumented in this encounter Care Teams Nurse Aide Evaluator Relationship Specialty Start Date End Date Juarez Griffin MD [address] [facility] [address] [place] [address] PCP - General Internal Medicine 05/30/23 documented as of this encounter
--- OUTSIDE RECORDS SUMMARY | 2025-06-19 14:48 | XMS_ITS | Clinical Summary ---
Author Organization [facility] Address [address] [facility] [address] [place] [address] Phone Care Team Providers Care Medical Supervisor Name Role Phone Zofia Perkins Unavailable Unavailable Conditions or Problems Problem Name Problem Code Onset Date Status Entry Date Provider Comment Standard Description Annotate Acute Pyelonephritis 06538618 (SNOMED CT) 01/07 Active 01/07 Malina Ames Acute pyelonephritis Obstructive uropathy with infection N13.6 (ICD-10-C M) 01/07 Active 01/07 Malina Ames Pyonephrosis Neutrophilic leukemoid reaction D72.823 (ICD-10-C M) 01/07 Active 01/07 Malina Ames Leukemoid reaction COPD 54632232 (SNOMED CT) 01/07 Active 01/07 Malina Ames Chronic obstructive pulmonary disease Morbid obesity due to excess calories E66.01 (ICD-10-C M) 01/07 Active 01/07 Malina Ames Morbid (severe) obesity due to excess calories DM Type II E11.9 (ICD-10-C M) 01/07 Active 01/07 Malina Ames Type 2 diabetes mellitus without complications Benign hypertensive heart disease with chronic diastolic heart failure (I50.32) 18469540 (SNOMED CT) 01/07 Active 01/07 Malina Ames Benign hypertension Medications Medication Instructions Start Date Stop Date Generic Name [facility] Provider FOSFOMYCIN TROMETHAMINE 3 GM PACK Take 1 packet by mouth as directed take 1 packet every 3-4 days (2 times weekly) fosfomycin tromethamine 58170766575 Calvin Villarreal MD PREDNISONE 20 MG TABS prednisone 83895769433 Milly Jabierbrianne VITAMIN C 500 MG CAPS twice a day ascorbic acid (vitamin c) 14442333857 Milly Mosquera HIPREX 1 GM TABS Take 1 tablet by mouth twice a day 02/18 methenamine hippurate 63162677094 Calvin Villarreal MD INDOMETHACIN 50 MG CAPS Take 1 capsule by mouth three times a day indomethacin 69447688183 Linda De Leon SUCRALFATE 1 GM TABS Take 1 tablet by mouth four times a day sucralfate 90951079347 Linda De Leon BUMETANIDE 2 MG TABS Take 1 tablet by mouth twice a day bumetanide 70095881368 Linda De Leon PRAVASTATIN SODIUM 10 MG TABS Take 1 tablet by mouth every night pravastatin 26721838081 Linda De Leon ENTRESTO 24-26 MG TABS Take 1 tablet by mouth twice a day sacubitril-valsa rtan 27393404024 Linda De Leon VENTOLIN HFA 108 (90 Base) MCG/ACT AERS Inhale 2 puff by mouth every four to six hours as needed albuterol sulfate 42202440759 Linda De Leon ADVAIR DISKUS 250-50 MCG/ACT AEPB Inhale 1 puff twice a day fluticasone propion-salmeter ol 66459277428 Linda De Leon OMEPRAZOLE 20 MG CPDR Take 1 capsule by mouth once a day omeprazole 12132869974 Linda De Leon METFORMIN HCL 500 MG TABS Take 1 tablet by mouth twice a day metformin 43578383467 Linda De Leon FARXIGA 10 MG TABS Take 10 mg by mouth once a day dapagliflozin propanediol 23469690976 Linda De Leon IBUPROFEN (IBUPROFEN) 800 MG TABS Take 1 tablet by mouth every six hours as needed IBUPROFEN Linda De Leon TIZANIDINE HCL 4 MG TABS Take 1 tablet by mouth as needed tizanidine 71322768207 Linda De Leon TRAMADOL HCL 50 MG TABS every twelve hours tramadol 75094701226 Linda De Leon NITROGLYCERIN 0.[address] 1 tablet under tongue as needed nitroglycerin 84829778960 Linda Moises ONDANSETRON HCL 4 MG TABS Take 1 tablet by mouth every eight hours as needed ondansetron hcl 69913135521 Linda Moises SPIRONOLACTONE 50 MG TABS Take 1 tablet by mouth once a day spironolactone 26381688935 Linda De Leon SITagliptin (JANUVIA) 25 MG tablet Take 1 tablet by mouth once a day JANOLIVER De Leon NEBIVOLOL HCL 5 MG TABS Take 1 tablet by mouth once a day nebivolol 75616014599 Jazieltyree De Leon GLYXAMBI 10-5 MG TABS Take 1 tablet by mouth once a day empagliflozin-li nagliptin 80228455673 Linda De Leon VENTOLIN HFA 108 (90 Base) MCG/ACT AERS INHALE TWO PUFFS BY MOUTH EVERY 4 TO 6 HOURS NEEDED 01/19 albuterol sulfate 01625348637 QIE qieuser TRAMADOL HCL 50 MG TABS Every 12 (Twelve) Hours. 01/19 tramadol 21190042642 QIE qieuser TIZANIDINE HCL 4 MG TABS Take 1 tablet by mouth As Needed. 01/19 tizanidine 57206884802 QIE qieuser SUCRALFATE 1 GM TABS Take 1 tablet by mouth 4 (Four) Times a Day. 01/19 sucralfate 60682320890 QIE qieuser SPIRONOLACTONE 50 MG TABS TAKE ONE TABLET BY MOUTH EVERY DAY 01/19 spironolactone 61948284316 QIE qieuser SITagliptin (JANUVIA) 25 MG tablet Take 1 tablet by mouth Daily. 01/19 JANUVIA QIE qieuser PRAVASTATIN SODIUM 10 MG TABS TAKE ONE TABLET BY MOUTH EVERY DAY AT BEDTIME 01/19 pravastatin 50122126204 QIE qieuser ONDANSETRON HCL 4 MG TABS Take 1 tablet by mouth Every 8 (Eight) Hours As Needed. 04/27 ondansetron hcl 80519384584 QIE qieuser OMEPRAZOLE 20 MG CPDR TAKE ONE CAPSULE BY MOUTH EVERY DAY 04/27 omeprazole 47844645929 QIE qieuser O2 (OXYGEN) 2 L by Alternating Nares route Every Night. OXYGEN QIE qieuser NITROGLYCERIN 0.[address] 1 tablet under the tongue As Needed for Chest Pain. 01/19 nitroglycerin 86630379448 QIE qieuser NEBIVOLOL HCL 5 MG TABS TAKE ONE TABLET BY MOUTH EVERY DAY 01/19 nebivolol 43342499973 QIE qieuser METFORMIN HCL 500 MG TABS Take 1 tablet by mouth 2 (Two) Times a Day. 01/19 metformin 68795012814 QIE qieuser IPRATROPIUM-ALBUT MIK 0.5-2.5 (3) MG/3ML SOLN ipratropium-albu terol 38245662322 QIE qieuser INDOMETHACIN 50 MG CAPS Take 1 capsule by mouth 3 (Three) Times a Day With Meals. 01/19 indomethacin 07764860496 QIE qieuser IBUPROFEN (IBUPROFEN) 800 MG TABS Take 1 tablet by mouth Every 6 (Six) Hours As Needed. 01/19 IBUPROFEN QIE qieuser ENTRESTO 24-26 MG TABS TAKE ONE TABLET BY MOUTH TWICE DAILY 01/19 sacubitril-valsa rtan 95224692926 QIE qieuser GLYXAMBI 10-5 MG TABS Take 1 tablet by mouth Daily. 01/19 empagliflozin-li nagliptin 46947893660 QIE qieuser FARXIGA 10 MG TABS Take 10 mg by mouth Daily. 01/19 dapagliflozin propanediol 13464036274 QIE qieuser BUMETANIDE 2 MG TABS TAKE ONE TABLET BY MOUTH TWICE DAILY 01/19 bumetanide 35597870392 QIE qieuser ADVAIR DISKUS 250-50 MCG/ACT AEPB Inhale 1 puff 2 (Two) Times a Day. 01/19 fluticasone propion-salmeter ol 11639911583 QIE qieuser CEFUROXIME AXETIL 500 MG TABS 1 tablet by mouth twice a day cefuroxime axetil 30300433272 Calvin Villarreal MD Medications Administered No information available. Allergies, Adverse Reactions, Alerts Allergy Name Reaction Description Start Date Severity Statu s Provider AUGMENTIN anaphylaxis Critical Active Avnai donahue Arnbrianne SULFAMETHOXAZOLE-TRIME THOPRIM Other (See Comments) [...] status SMOK STATUS Never smoker Toba tobacco sieve operator smoking status MEDS REVIEW Done Documenta tion [...]
--- OUTSIDE RECORDS SUMMARY | 2025-06-19 14:48 | XMS_ITS | Encounter Summary ---
Author Organization [facility] Address [address] [place] [address] Care Team Providers Care Java J2Ee Technical Lead Name Role Phone Juarez Griffin MD Primary Care Provider [phone] Reason for Visit * Reason Onset Date Comments DR AMES - SCHEDULING 03/31/2025 Encounter Details Date Type Department Care Team (Late st Contact Info) Description 03/31/2025 Telephone [facility] [address] [facility] [address] [address] Demarcus Ames MD [address] [address] [address] AMES - SCHEDULING Social History Tobacco Use Types Packs/Day Years Used Date Smoking Tobacco: Never Passive Smoke Exposure: Never Smokeless Tobacco: Never Alcohol Use Standard Drinks/Week Comments Not Currently 0 (1 standard drink = 0.6 oz pur e alcohol) Maybe 3 drinks annually [facility] Utilities Answer Date Recorded In the past 12 months has [employer], [employer], oil, or water [employer] threatened to shut off services in [...] all 04/16/2024 [facility] [employer] of Occupat ional Health - Occupational Stress [...] or training? Not on file Preferred Language Ecuadorean 02/25/2025 PHQ-2 Answer Date Recorded Retired PHQ-9: [...] 9:18 AM EDT Cathy Curtis RN * [place] Suicide Severity Rating Scale (Screener/Recent Self-Report) Question Answer Date of Assessment Author 6. Suicidal Behavior (Lifetime) No 9:18 AM EDT Vandana Curtis RN documented as of this encounter Miscellaneous Notes * Telephone Encounter - Ashleigh Crowell - 03/31/2025 1:55 PM EDT Caller: LISSY VALDEZ Relationship to patient: SELF Best call back number: [phone] Chief complaint: PATIENT HAD SURGERY TODAY AND [...] Info) Description 07/01/2025 1:00 PM EDT Appointment [facility]TR[facility]OUND [place] [address] [place] [address] 07/01/2025 2:00 PM EDT Appointment [facility] [address] AT [place] [address] [place] [address] 07/06/2025 1:00 PM EDT Office Visit [facility] [address] [place] [address] Teressa Finley APRN [address] [place] [address] 11/01/2025 1:30 PM EST Office Visit [facility] CARDIOLOG[facility] [address] [place] [address] Yaneth Ugarte MD [address] [place] [address] documented as of this encounter Visit Diagnoses Not on filedocumented in this encounter Care Teams Java J2Ee Technical Lead Relationship Specialty Start Date End Date Juarez Griffin MD [address] [facility] [address] [place] [id number] PCP - General Internal Medicine 05/30/23 documented as of this encounter
--- OUTSIDE RECORDS SUMMARY | 2025-06-19 14:48 | XMS_ITS | Clinical Summary ---
Author Organization [employer] ([place], [place], [place], [place]) Address [address] [place] [address] Care Team Providers Care Strawhat Sizer Name Role Phone Juarez Griffin MD Primary Care Provider [phone] Allergies Active Allergy Reactions Criticality Noted Date [...] Do you speak a language other than Lithuanian at [facility]? No [...] Completed 10/30/2023, Medical Devices Implanted Type Area Boom Man Device Identifier Shelf Expiration Date Model / Serial / Lot Loop Recorder LOOP RECORDER Left: Chest Insurance [employer] [facility] Advance Directives For more information, please contact: [phone] * Full Code (Latest Code Status on File) Date Activated Date Inactivated Comments 12/27/2023 3:21 AM 12/30/2023 2:53 PM -Attempt Resus citation if person has no pulse and is not breathing. -If no pulse or not breathing attempt CPR/CODE. -Call Rapid Response if patient is in distress. Care Teams Strawhat Sizer Relationship Specialty Start Date End Date Juarez Griffin MD [address] [place] [address] PCP - General General Internal Medicine 12/30/23
--- OUTSIDE RECORDS SUMMARY | 2025-06-19 14:48 | XMS_ITS | Referral Summary ---
Author Organization [employer] ([place], [place], [place], [place]) Address [address] [place] [address] Care Team Providers Care Laboratory Technologist Name Role Phone Juarez Griffin MD Primary Care Provider [phone] Allergies Active Allergy Reactions Criticality Noted Date [...] Do you speak a language other than Mohawk at [facility]? No 12/27/2023 Do you want help with [...] on file Medical Devices Implanted Type Area Grave Cleaner Device Identifier Shelf Expiration Date Model / Serial / Lot Loop Recorder LOOP RECORDER Left: Chest Insurance [facility] [place] [id number] [facility] Advance Directives For more information, please contact: [phone] * Full Code (Latest Code Status on File) Date Activated Date Inactivated Comments 12/27/2023 3:21 AM 12/30/2023 2:53 PM -Attempt Resus citation if person has no pulse and is not breathing. -If no pulse or not breathing attempt CPR/CODE. -Call Rapid Response if patient is in distress. Care Teams Laboratory Technologist Relationship Specialty Start Date End Date Juarez Griffin MD [address] [place] [address] PCP - General General Internal Medicine 12/30/23
--- NOTE | 2025-06-19 15:11 | PC.NURSE ---
1500 - INJECTIONS ADMINISTERED TO RT GLUTEUS CARLOS A
== END 2025-06-19 15:12 | disposition home or self-care (01) ==
PROVIDERS: PCP Internal Medicine; Visit Provider Internal Medicine
DX: N39.0 Urinary tract infection, site not specified (principal)
CPT/HCPCS: 96372

== ENCOUNTER 2025-07-11 17:04 | Emergency (ER) | payer OTHER, SELFPAY ==
--- OUTSIDE RECORDS SUMMARY | 2025-07-11 17:10 | XMS_ITS | Encounter Summary ---
[facility] Address [address] [place] [address] Care Team Providers Care Manufacturing Engineer Machining Name Role Phone Juarez Griffin MD Primary Care Provider [phone] Encounter Details Date Type Department Care Team (Late st Contact Info) Description 05/10/2025 Results Follow-Up [facility] CARDIOLOGY [address] [place] [address] Yaneth Ugarte MD [address] [place], [place] [id number] Social History Tobacco Use Types Packs/Day Years Used Date Smoking Tobacco: Never Passive Smoke Exposure: Never Smokeless Tobacco: Never Alcohol Use Standard Drinks/Week Comments Not Currently 0 (1 standard drink = 0.6 oz pur e alcohol) Maybe 3 drinks annually [facility] Utilities Answer Date Recorded In the past 12 months has [employer], gas, oil, or water [employer] threatened to shut off services in your [...] and heating? Not hard at all 04/16/2024 [place] [employer] [place] of Occupat ional Health - Occupational Stress [...] Care Team (Late st Contact Info) Description 11/01/2025 1:30 PM EST Office Visit [facility] CARDIOLOGY [address] [place] [address] Yaneth Ugarte MD [address] [place] [address] documented as of this encounter Visit Diagnoses Not on filedocumented in this encounter Care Teams Manufacturing Engineer Machining Relationship Specialty Start Date End Date Juarez Griffin MD [address] [place] [facility] [address] [place] [address] PCP - General Internal Medicine 05/30/23 documented as of this encounter
--- OUTSIDE RECORDS SUMMARY | 2025-07-11 17:10 | XMS_ITS | Encounter Summary ---
[facility] Organization [facility] Address [address] [place] [address] Care Team Providers Care Garage Door Technician Name Role Phone Juarez Griffin MD Primary Care Provider [phone] Encounter Details Date Type Department Care Team (Late st Contact Info) Description 05/11/2025 Telephone [facility] CARDIOLOGY [address] [place] [address] Shell Diaz RegSched Rep Social History Tobacco Use Types Packs/Day Years Used Date Smoking Tobacco: Never Passive Smoke Exposure: Never Smokeless Tobacco: Never Alcohol Use Standard Drinks/Week Comments Not Currently 0 (1 standard drink = 0.6 oz pur e alcohol) Maybe 3 drinks annually [facility] Utilities Answer Date Recorded In the past 12 months has [employer], gas, oil, or water company threatened [...] heating? Not hard at all 04/16/2024 [facility] [place] of Occupat ional Health - Occupational Stress [...] or training? Not on file Preferred Language British 02/25/2025 PHQ-2 Answer Date Recorded Retired PHQ-9: [...] Description 11/01/2025 1:30 PM EST Office Visit [facility] CARDIOLOGY [address] [place] [phone] Yaneth Ugarte MD [address] [place] [id number] documented as of this encounter Visit Diagnoses Not on filedocumented in this encounter Care Teams Garage Door Technician Relationship Specialty Start Date End Date Juarez Griffin MD 12[address] [facility] [address] [place] [id number] PCP - General Internal Medicine 05/30/23 documented as of this encounter
--- OUTSIDE RECORDS SUMMARY | 2025-07-11 17:10 | XMS_ITS | Clinical Summary ---
Author Organization [facility] Address [address] [place] [address] Phone Care Team Providers Care Smoke And Flame Specialist Name Role Phone Unavailable Primary Care Provider Unavailabl e Social History Tobacco Use Types Packs/Day Years Used Date Smoking Tobacco: Never Assessed Comments Unknown Sex and Gender Information Value Date Recorded Sex Assigned at Not on file Legal Sex Female 10:51 AM EDT Gender Identity Not on file Sexual Orientation Not on file Plan of Treatment Upcoming Encounters Date Type Department Care Team (Late st Contact Info) Description 08/09/2025 3:00 PM EDT Appointment [address] [place] [address] Bradley Gonzales MD [address] [place] [id number] Health Maintenance Due Date Last Done Comments Annual Wellness Exam 1976 DTaP/TDaP/Td (1 - Tdap) 1992 Hepatitis B Vaccine (1 of 3 - 19+ 3-dose series) 1992 Cervical Cancer Screening 1994 Pap Smear 1994 HPV/Pap Cotest 2003 Breast Cancer Screening 2013 Cologuard 2018 Colon Cancer Screening 2018 Colonoscopy 2018 FIT 2018 Sigmoidoscopy 2018 Virtual Colonography 2018 Pneumococcal Vaccine 50+ (1 of 1 - PCV) 2023 Zoster (1 of 2) 2023 COVID-19 Vaccine ( - 2023-2 5 season) 2025 Influenza Vaccine (#1) 2025 Meningococcal B Vaccine Aged Out No l onger eligible based on patient's age to complete this topic [facility] [place] [address]
--- OUTSIDE RECORDS SUMMARY | 2025-07-11 17:11 | XMS_ITS | Clinical Summary ---
Author Organization [employer] ([place], [place], [place], [place]) Address [address] [place] [address] Care Team Providers Care Oyster Culturist Name Role Phone Juarez Griffin MD Primary Care Provider [phone] Allergies Active Allergy Reactions Criticality Noted Date [...] you speak a language other than [facility]? No 12/27/2023 Do you want help with [...] Pneumococcal 50+ years (2 of 2 - PCV20 or PCV21) 2023 09/06/2021 Tobacco Cessation Counseling and Screening (12+) 12/26/2024 12/27/2023 COVID-19 VACCINE (3 - season) 06/28/202508/2022, 08/21/2021 Influenza Vaccine (#1) 2025 Shingles Vaccine (Zoster) Completed 10/30/2023, Medical Devices Implanted Type Area Panel Saw Operator Device Identifier Shelf Expiration Date Model / Serial / Lot Loop Recorder LOOP RECORDER Left: Chest Insurance [facility] [facility] [place] Advance Directives For more information, please contact: [phone] * Full Code (Latest Code Status on File) Date Activated Date Inactivated Comments 12/27/2023 3:21 AM 12/30/2023 2:53 PM -Attempt Resus citation if person has no pulse and is not breathing. -If no pulse or not breathing attempt CPR/CODE. -Call Rapid Response if patient is in distress. Care Teams Oyster Culturist Relationship Specialty Start Date End Date Juarez Griffin MD [address] [place] [address] PCP - General General Internal Medicine 12/30/23
--- OUTSIDE RECORDS SUMMARY | 2025-07-11 17:11 | XMS_ITS | Encounter Summary ---
Author Organization [facility] Address [address] [place] [address] Care Team Providers Care Morale Officer Name Role Phone Juarez Griffin MD Primary Care Provider [phone] Karen Naqvi DO Unavailable [phone] Encounter Details Date Type Department Care Team ([facility] st Contact Info) Description 02/12/2024 Orders Only External Location [address] [place] [address] Gennaro Cuevas MD [facility] [address] [place] [address] Social History Tobacco Use Types Packs/Day Years [...] from external infection. Source: [facility]. This patient will require contact precautions indefinitely. 04/01/2024 documented as of this encounter Care Teams Morale Officer Relationship Specialty Start Date End Date Juarez Griffin MD [address] [place] [address] PCP - General 03/10/21 Karen Naqvi DO [facility] [address] [place] [address] Referring Physician Obstetrics and Gynecology 09/23/24 documented as of this encounter
--- OUTSIDE RECORDS SUMMARY | 2025-07-11 17:11 | XMS_ITS | Encounter Summary ---
Author Organization [facility] Address [address] [place] [address] Care Team Providers Care Social And Human Services Assistant Name Role Phone Juarez Griffin MD Primary Care Provider [phone] Reason for Visit * Reason Comments Med Refill Encounter Details Date Type Department Care Team (Late st Contact Info) Description 07/01/2025 Refill [facility] [address] [place] [address] Yaneth Ugarte MD [address] [place], [place] [id number] Med Refill Social History Tobacco Use Types Packs/Day Years Used Date Smoking Tobacco: Never Passive Smoke Exposure: Never Smokeless Tobacco: Never Alcohol Use Standard Drinks/Week Comments Not Currently 0 (1 standard drink = 0.6 oz pur e alcohol) Maybe 3 drinks annually [facility] Utilities Answer Date Recorded In the past 12 months has [employer], oil, or water [employer] threatened to shut off services in your [...] and heating? Not hard at all 04/16/2024 [facility] ional Health - Occupational Stress [...] or training? Not on file Preferred Language Central African 02/25/2025 PHQ-2 Answer Date Recorded Retired PHQ-9: [...] Description 11/01/2025 1:30 PM EST Office Visit [facility] [address] [place] [phone] Yaneth Ugarte MD [address] [place] [address] documented as of this encounter Visit Diagnoses Not on filedocumented in this encounter Care Teams Social And Human Services Assistant Relationship Specialty Start Date End Date Juarez Griffin MD [address] [facility] [address] [place] [address] PCP - General Internal Medicine 05/30/23 documented as of this encounter
--- OUTSIDE RECORDS SUMMARY | 2025-07-11 17:11 | XMS_ITS | Referral Summary ---
Author Organization [employer] ([place], [place], [place], [place]) Address [address] [place] [address] Care Team Providers Care Pump House Engineer Name Role Phone Juarez Griffin MD Primary Care Provider [phone] Allergies Active Allergy Reactions Criticality Noted Date [...] speak a language other than [facility]? No 12/27/2023 [...] on file Medical Devices Implanted Type Area Barge Loader Device Identifier Shelf Expiration Date Model / Serial / Lot Loop Recorder LOOP RECORDER Left: Chest Insurance [facility] [place] [id number] [facility] Advance Directives For more information, please contact: [phone] * Full Code (Latest Code Status on File) Date Activated Date Inactivated Comments 12/27/2023 3:21 AM 12/30/2023 2:53 PM -Attempt Resus citation if person has no pulse and is not breathing. -If no pulse or not breathing attempt CPR/CODE. -Call Rapid Response if patient is in distress. Care Teams Pump House Engineer Relationship Specialty Start Date End Date Juarez Griffin MD [address] [place] [address] PCP - General General Internal Medicine 12/30/23
--- OUTSIDE RECORDS SUMMARY | 2025-07-11 17:11 | XMS_ITS | Clinical Summary ---
Author Organization [facility] Address [address] [place] [address] Care Team Providers Care Risk Professional Name Role Phone Juarez Griffin MD Primary Care Provider [phone] Karen Naqvi DO Unavailable [phone] Allergies Active Allergy Reactions Criticality Noted Date [...] Medical History Relation Name Comments Diabetes Father [place] Heart disease Father [place] Hypertension Father [place] Dementia Mother Marzena Hypertension Mother Marzena Cancer [...] drink first t yue in the morning (EYE-PARTS FABRICATOR) to steady your nerves or to get [...] 50 + Years (2 of 2 - PPSV23, PCV20, or PCV21) 11/01/2021 09/06/2021 [facility]-Breast Cancer Screening 2023 [facility]-Diabetes: Hemoglobin A1C 10/08/2024 04/10/2024 VZA-BOEXY-98 Vaccine ( - 2024- season) 2025 10/07/2022, 08/21/2021 [facility]-Influenza Vaccine (#1) 06/28/202508/05, 10/29/2022 [facility]-Depression Screening [...] this topic Medical Devices Implanted Type Area Marketing Effectiveness Manager Device Identifier Shelf Expiration Date Model / Serial / Lot Stent Ureteral Double Pigtail Pos 6fr 24cm - [id number] - [id number] Implanted:Qty: 1 on 04/11/2024 by Harvey Macdonald MD at [facility] Stent Right: [id number] 01/02/2026 [id number] / [id number] / [id number] Loop Recorder-2016 Implanted:04/28 (Quantity not on file) [...] Non Reactive 04/10/2024 7:25 PM EDT [facility] Comment:Screening for HIV 1 & 2 antibodies, and P24 antigen is NONREACTIVE. No confirmatory testing is required. Blood Venous blood specimen / Unknown Venipuncture / Unknown 04/10/2024 6:11 PM EDT 04/10/2024 6:27 PM EDT us Susan Mcclure MD LAB BLOOD ORDERABLES Final Re sult [facility] [address] [place] [id number] * Hepatitis C Antibody - ED (04/10/2024 6:11 PM EDT) Hepatitis C Antibody Negative Negative 04/10/2024 7:24 PM EDT [facility] Blood Venous blood specimen / Unknown Venipuncture / Unknown 04/10/2024 6:11 PM EDT 04/10/2024 6:26 PM EDT us Susan Mcclure MD LAB BLOOD ORDERABLES Final Re sult Performing Organization Address City/[facility] Co de Phone Number [facility] [address] [place] [address] * (ABNORMAL) Hemoglobin A1c (04/10/2024 6:11 PM [...] Adults <6.0% Children and Adolescents <7.5% Source: [place] Diabetes Association. Standards of medical care in diabetes,2017. Diabetes Care.2017:40 (suppl 1):S1-S135. HbA1c assay performed by an ion-exchange chromatography method that is certified traceable to the DCCT. us Joselito Berrios MD LAB BLOOD ORDERABLES Final Re sult Performing Organization Address [facility] Co de Phone Number [facility] [address] [place] [address] from Last 3 Months or Most Recently Relevant to Health Maintenance Additional Health Concerns Infection Onset Date Last Indicated ESBL Comment:+ 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 Source: [facility]. This patient will require contact precautions indefinitely. 04/01/2024 Insurance [facility] Advance Directives * Full Code (Latest Code Status on File) Date Activated Date Inactivated Comments 04/11/2024 10:12 AM 04/12/2024 3:22 PM Question Answer Comments Patient has decision-making capacity? Yes Care Teams Risk Professional Relationship Specialty Start Date End Date Juarez Griffin MD [address] [facility] [address] [place] [address] PCP - General 03/10/21 Karen Naqvi DO [address] [facility] [address] [place] [address] Referring Physician Obstetrics and Gynecology 09/23/24
--- OUTSIDE RECORDS SUMMARY | 2025-07-11 17:11 | XMS_ITS | Clinical Summary ---
Author Organization [facility] Address [address] [place] [id number] Care Team Providers Care Protection Chief Industrial Plant Name Role Phone Juarez Griffin MD Primary Care Provider [phone] Allergies Active Allergy Reactions Criticality Noted Date [...] Take 1 tablet by mouth As Needed. 01/08/20 23 Active O2 (OXYGEN) 2 L by Alternating Nares route Every Night. Active ondansetron (ZOFRAN) 4 MG tablet Take 1 tablet by mouth Every 8 (Eight) Hours As Needed. 02/12/20 23 Active ipratropium-al buterol (DUO-NEB) 0.5-2.5 mg/3 ml nebulizer As Needed. 09/03/20 23 Active Ventolin HFA 108 (90 Base) MCG/ACT inhaler INHALE TWO PUFFS BY MOUTH EVERY 4 TO 6 HOURS NEEDED 18 g 6 11/29/19 24 Active bumetanide (BUMEX) 2 MG tabletIndicati ons:Swelling of lower extremity TAKE ONE TABLET BY MOUTH TWICE DAILY 60 tablet 11 12/31/19 24 Active Additional Information Patient taking differently:2 mg Oral 2 Times Daily,usually takes once per day with 2nd dose PRN, Informant: Self, Reported on 05/03/2025 vitamin C (ASCORBIC ACID) 500 MG tablet Daily. 03/02/20 24 Active naloxone (NARCAN) 4 MG/0.1ML nasal sprayIndicatio ns:Nephrolithi asis,Recurrent UTI Call 911. Don't prime. Van in 1 nostril for overdose. Repeat in 2-3 minutes in other nostril if no or minimal breathing/respo nsiveness. 2 each 04/15/20 24 Active vitamin D3 125 MCG (5000 UT) capsule capsuleIndicat ions:Vitamin D deficiency Take 1 capsule by mouth Daily. 30 capsule 07/07/20 24 Active montelukast (SINGULAIR) 10 MG tablet Take 1 tablet by mouth Every Night. 06/30/20 24 Active ibuprofen (ADVIL,MOTRIN) 800 MG tablet Take 1 tablet by mouth Every 6 (Six) Hours As Needed for Moderate Pain. 07/01/20 24 Active Trelegy Ellipta 100-62.5-25 MCG/ACT inhaler Inhale 1 puff Daily. 09/01/20 24 Active OneTouch Verio test strip USE TO TEST BLOOD SUGAR ONCE DAILY DIRECTED 09/02/20 24 Active pravastatin (PRAVACHOL) 40 MG tablet 10 mg. 11/18/19 25 Active omeprazole (priLOSEC) 20 MG capsule Take 1 capsule by mouth Daily. 30 capsule 6 01/27/20 25 Active spironolactone (ALDACTONE) 50 MG tablet Take 1 tablet by mouth Daily. 30 tablet 6 01/27/20 25 Active senna 8.6 MG tablet TAKE ONE TABLET BY MOUTH TWICE DAILY NEEDED FOR CONSTIPATION 02/04/20 25 Active Mounjaro 2.5 MG/0.5ML solution auto-injector Holding at this time 01/12/20 25 Active cetirizine (zyrTEC) 10 MG tablet Take 1 tablet by mouth Daily. Active promethazine (PHENERGAN) 25 MG tablet Take 1 tablet by mouth Every 6 (Six) Hours As Needed for Nausea or Vomiting. Active Linzess 290 MCG capsule capsule Take 1 capsule by mouth Every Morning Before Breakfast. 03/19/20 25 Active nitroglycerin (NITROSTAT) 0.4 MG SL tablet DISSOLVE 1 TABLET UNDER THE TONGUE EVERY 5 MINUTES NEEDED FOR CHEST PAIN. DO NOT EXCEED A TOTAL OF 3 DOSES IN 15 MINUTES. IF NO RELIEF AFTER 3 DOSES CALL 911/GO TO ER 04/05/20 25 Active traMADol (ULTRAM) 50 MG tablet TAKE ONE TABLET BY MOUTH EVERY 6 HOURS NEEDED FOR PAIN MAY CAUSE DROWSINESS Active sacubitril-mary sartan (Entresto) 24-26 MG tabletIndicati ons:Swelling of lower extremity Take 1 tablet by mouth 2 (Two) Times a Day. 60 tablet 2 05/03/20 25 Active nebivolol (BYSTOLIC) 5 MG tablet TAKE ONE TABLET BY MOUTH EVERY DAY 90 tablet 1 07/01/20 25 Active nebivolol (BYSTOLIC) 5 MG tablet TAKE ONE TABLET BY MOUTH EVERY DAY 90 tablet 5 06/26/20 24 025 Discontinued Active Problems Problem Noted Date Diagnosed Date [...] Encounters Date Type Department Care Team Description 07/01/2025 Refill [facility] [address] [place] [phone] Yaneth Ugarte MD Med Refill 05/11/2025 Telephone [facility] [address] [place] [address] [place] [address] EbonyShell felipeHoldened Rep 05/10/2025 Results Follow-Up [facility] [address] [place], [place] [address] [address] Yaneth Ugarte MD 05/03/2025 1:30 PM EDT Office Visit [facility] [address] [place] [address] Yaneth Ugarte MD Hypercholesterolemia (Primary Dx); PVC (premature ventricular contraction); Precordial chest pain; Swelling of lower extremity 05/03/2025 Patient rounding ([facility] only) [facility] [address] [place] [address] Yaneth Ugarte MD 05/03/2025 Travel 04/29/2025 Telephone [facility] [address] [place] [address] Yaneth Ugarte MD from Last 3 Months Family History [...] e alcohol) Maybe 3 drinks annually [facility] Utilities Answer Date Recorded In the past 12 months has [employer], gas, oil, or water [employer] threatened to shut off services in your [...] and heating? Not hard at all 04/16/2024 [facility] [place] of Occupat ional Health - Occupational Stress [...] Description 11/01/2025 1:30 PM EST Office Visit [facility] [address] [place] [phone] Yaneth Ugarte MD [address] [place] [address] Health Maintenance Due Date Last Done Comments [...] - PPSV23) 11/01/2021 09/06/2021 ANNUAL PHYSICAL 12/06/2022 HEMOGLOBIN A1C 10/10/2024 04/10/2024, 03/28, 12/27/2023, Additional history exists COVID-19 Vaccine (3 - 2024-2 6 season) 2025 10/07/2022, 08/21/2021 INFLUENZA VACCINE 07/28/2025 08/05/2024, , 08/28/2023, Additional history exists LIPID PANEL 05/07/2026 05/07/2025 ZOSTER VACCINE Completed 10/30/2023, 05/27/2023 HEPATITIS C SCREENING Completed 04/10/2024 Medical Devices Implanted Type Area Real Estate Subagent Device Identifier Shelf Expiration Date Model / Serial / Lot Kt Seal Hemos Abs Floseal Matrx Fast/Prep 5ml - [id number] Implanted:Qty : 1 on 04/15/2024 by Demarcus Ames MD at [facility] Implant Right: Kidney [facility] 05/29/2025 [id number] / / [id number] Clip Ligat Vasc Horizon Steve Caldera Daniel 6ct - [id number] Implanted:Qty : 2 on 03/04/2025 by Zac Mckeon MD at [facility] Implant N/A: Neck [employer] MEDICAL [id number] / / Clip Ligskylar Vasc Horizon Steve Sm Yel 6ct - [id number] Implanted:Qty : 4 on 03/04/2025 by Zac Mckeon MD at [facility] Implant N/A: Neck TELEF[employer] MEDICAL [id number] / / Hemost Abs Surgicel Orig 4x8in Strl - [id number] Implanted:Qty : 1 on 03/04/2025 by Zac Mckeon MD at [facility] Implant N/A: Neck [employer] J [employer] J [id number] / / Kt Seal Hemos Abs Floseal Matrx 1.5/Fast/Prep 5000/Iu 5ml - [id number] Implanted:Qty : 1 on 03/31/2025 by Demarcus Ames MD at [facility] Implant Left: Back [facility] 08/13/2026 [id number] / / [id number] Stnt Percuflx No Gw 7x26 - [id number] Implanted:Qty : 1 on 04/15/2024 by Demarcus Ames MD at [facility] Stent Right: Kidney [employer] 09/06/2026 [id number] / / [id number] Stnt Percuflx No Gw 7x26 - [id number] Implanted:Qty : 1 on 03/31/2025 by Demarcus Ames MD at [facility] Stent Left: Back [employer] 08/10/2027 [id number] / / [id number] Procedures Procedure Name Priority Date/Time Associated Diagnosis Comments COMPREHENSIVE METABOLIC PANEL Routine 05/07/2025 Hypercholesterolemi a PVC (premature ventricular contraction) LIPID PANEL Routine 05/07/2025 Hypercholesterolemi a PVC (premature ventricular contraction) MAGNESIUM Routine 05/07/2025 Hypercholesterolemi a PVC (premature ventricular contraction) TSH RFX ON ABNORMAL TO FREE T4 Routine 05/07/2025 Hypercholesterolemi a PVC (premature ventricular contraction) ECG 12-LEAD Routine 05/03/2025 2:22 PM EDT Precordial chest pain SCANNED - LABS 04/11/2025 from Last 3 Months Results * TSH Rfx On Abnormal To Free T4 (05/07/2025) Blood Yaneth Ugarte MD LAB BLOOD ORDERABLES Final R esult [facility]
[address] [place] [address], * Magnesium (05/07/2025) Blood us Yaneth Ugarte MD LAB BLOOD ORDERABLES Final R esult [facility]
[address] [place] [address], [place] [phone] * Lipid Panel (05/07/2025) Blood Yaneth Ugarte MD LAB BLOOD ORDERABLES Final R esult Performing Organization Address [facility] Co de Phone Number [facility]
[address] [place] [address], * Comprehensive Metabolic Panel (05/07/2025) Blood Yaneth Ugarte MD LAB BLOOD ORDERABLES Final R esult Performing Organization Address [facility] de Phone Number [facility]
[address] [place] [address], * ECG 12-LEAD (05/03/2025 2:22 PM EDT) [...] Chronic chest pain followed by Dr. Ugarte -[facility] 03/05/24 Chronic diastolic (congestive) heart failure [...] Zac Mckeon MD;Location: [facility] OR; Service: General; Laterality: N/A; PERCUTANEOUS NEPHROSTOLITHOTOMY Right 04/15/2024 Procedure: CYSTOSCOPY & BALLOON OCCLUSION CATHETER PLACEMENT, PRIMARYPERCUTANEOUS ACCESS, NEPHROSTOLITHOTOMY PERCUTANEOUS, WITH STENT EXCHANGE;Surgeon: Demarcus Ames MD; [facility]; Service:Urology; Laterality: Right; PERCUTANEOUS NEPHROSTOLITHOTOMY Left 03/31/2025 Procedure: Percutaneous nephrolithotomy with stent placement left,cystoscopy; Surgeon: Demarcus Ames MD; [facility];Service: Urology; Laterality: Left; TUBAL [...] file. Laura Ugarte MD Cardiology and Sleep [facility] 05/03/2025 Please note that this [...] MD LAB BLOOD ORDERABLES Final R esult from Last 3 Months Insurance [facility] Care Teams Protection Chief Industrial Plant Relationship Specialty Start Date End Date Juarez Griffin MD [address] [facility] [address] [place] [address] PCP - General Internal Medicine 05/30/23
--- OUTSIDE RECORDS SUMMARY | 2025-07-11 17:11 | XMS_ITS | Encounter Summary ---
Author Organization [facility] Address [address] [place] [address] Care Team Providers Care Warp Dyeing Vat Tender Name Role Phone Juarez Griffin MD Primary Care Provider [phone] Encounter Details Date Type Department Care Team (Late st Contact Info) Description 04/20/2024 Telephone [facility] [address] [place] [address] Demarcus Ames MD [address] [facility] [address] [place] [address] Social History Tobacco Use Types Packs/Day Years Used Date Smoking Tobacco: Never Passive Smoke Exposure: Never Smokeless Tobacco: Never Alcohol Use Standard Drinks/Week Comments Yes 0 (1 standard drink = 0.6 oz pur e alcohol) rarely [facility] Utilities Answer Date Recorded In the past 12 months has [employer], gas, oil, or water [employer] threatened to shut off services in your [...] and heating? Not hard at all 04/16/2024 [place] of Occupat ional Health - Occupational Stress [...] GED or equivalent No 04/16/2024 Preferred Language Sao Tomean 04/16/2024 PHQ-2 Answer Date Recorded Retired PHQ-9: [...] Description 11/01/2025 1:30 PM EST Office Visit [facility] [address] [place] [phone] Yaneth Ugarte MD [address] [place] [address] documented as of this encounter Visit Diagnoses Not on filedocumented in this encounter Additional Health Concerns Infection Onset Date Last Indicated Resolved Time ESBL 04/01/2024 04/01/2024 03/03/2025 6:48 AM EDT documented as of this encounter Care Teams Warp Dyeing Vat Tender Relationship Specialty Start Date End Date Juarez Griffin MD [address] [facility] [address] [place] [address] PCP - General Internal Medicine 05/30/23 documented as of this encounter
--- OUTSIDE RECORDS SUMMARY | 2025-07-11 17:11 | XMS_ITS | Encounter Summary ---
Author Organization [facility] Address [address] [place] [phone] Care Team Providers Care Car Repair Supervisor Name Role Phone Juarez Griffin MD Primary Care Provider [phone] Encounter Details Date Type Department Care Team (Late st Contact Info) Description 04/16/2024 Retail Pharmacy Consultation [facility] [place] [address] [place] [address] [facility] [address] [place], [place] [id number] Social History Tobacco Use Types Packs/Day Years Used Date Smoking Tobacco: Never Passive Smoke Exposure: Never Smokeless Tobacco: Never Alcohol Use Standard Drinks/Week Comments Yes 0 (1 standard drink = 0.6 oz pur e alcohol) rarely C Utilities Answer Date Recorded In the past 12 months has [employer], gas, oil, or water [employer] threatened to shut off services in your [...] and heating? Not hard at all 04/16/2024 [facility] [place] of Occupat ional Health - Occupational Stress [...] GED or equivalent No 04/16/2024 Preferred Language Guatemalan 04/16/2024 PHQ-2 Answer Date Recorded Retired PHQ-9: [...] Description 11/01/2025 1:30 PM EST Office Visit [facility] [address] [phone] Yaneth Ugarte MD [address] [place] [place] [address] documented as of this encounter Visit Diagnoses Not on filedocumented in this encounter Additional Health Concerns Infection Onset Date Last Indicated Resolved Time ESBL 04/01/2024 04/01/2024 03/03/2025 6:4 8 AM EDT documented as of this encounter Care Teams Car Repair Supervisor Relationship Specialty Start Date End Date Juarez Griffin MD [address] [facility] [address] [place] [address] PCP - General Internal Medicine 05/30/23 documented as of this encounter
--- OUTSIDE RECORDS SUMMARY | 2025-07-11 17:11 | XMS_ITS | Clinical Summary ---
Author Organization [facility] Address [address] [place] [address] Phone Care Team Providers Care Bow Maker Name Role Phone Zofia Perkins Unavailable Unavailable Conditions or Problems Problem Name Problem Code Onset Date Status Entry Date Provider Comment Standard Description Annotate Acute Pyelonephritis 54950484 (SNOMED CT) 01/07 Active 01/07 Malina Ames Acute pyelonephritis Obstructive uropathy with infection N13.6 (ICD-10-C M) 01/07 Active 01/07 Malina Ames Pyonephrosis Neutrophilic leukemoid reaction D72.823 (ICD-10-C M) 01/07 Active 01/07 Malina Ames Leukemoid reaction COPD 16115300 (SNOMED CT) 01/07 Active 01/07 Malina Ames Chronic obstructive pulmonary disease Morbid obesity due to excess calories E66.01 (ICD-10-C M) 01/07 Active 01/07 Malina Ames Morbid (severe) obesity due to excess calories DM Type II E11.9 (ICD-10-C M) 01/07 Active 01/07 Malina Ames Type 2 diabetes mellitus without complications Benign hypertensive heart disease with chronic diastolic heart failure (I50.32) 01232298 (SNOMED CT) 01/07 Active 01/07 Malina Ames Benign hypertension Medications Medication Instructions Start Date Stop Date Generic Name [facility] Provider FOSFOMYCIN TROMETHAMINE 3 GM PACK Take 1 packet by mouth as directed take 1 packet every 3-4 days (2 times weekly) fosfomycin tromethamine [id number] Calvin Villarreal MD PREDNISONE 20 MG TABS prednisone 04754329787 Milly Jabierbrianne VITAMIN C 500 MG CAPS twice a day ascorbic acid (vitamin c) 73548937841 Milly Mosquera HIPREX 1 GM TABS Take 1 tablet by mouth twice a day 02/18 methenamine hippurate 50513705172 Calvin Villarreal MD INDOMETHACIN 50 MG CAPS Take 1 capsule by mouth three times a day indomethacin 20516963394 Linda De Leon SUCRALFATE 1 GM TABS Take 1 tablet by mouth four times a day sucralfate 35128527876 Linda De Leon BUMETANIDE 2 MG TABS Take 1 tablet by mouth twice a day bumetanide 65976635738 Linda De Leon PRAVASTATIN SODIUM 10 MG TABS Take 1 tablet by mouth every night pravastatin 88439817546 Linda De Leon ENTRESTO 24-26 MG TABS Take 1 tablet by mouth twice a day sacubitril-valsa rtan 08721915583 Linda De Leon VENTOLIN HFA 108 (90 Base) MCG/ACT AERS Inhale 2 puff by mouth every four to six hours as needed albuterol sulfate 51190812561 Linda De Leon ADVAIR DISKUS 250-50 MCG/ACT AEPB Inhale 1 puff twice a day fluticasone propion-salmeter ol 06363332617 Linda De Leon OMEPRAZOLE 20 MG CPDR Take 1 capsule by mouth once a day omeprazole 39487161005 Linda De Leon METFORMIN HCL 500 MG TABS Take 1 tablet by mouth twice a day metformin 04773653664 Linda De Leon FARXIGA 10 MG TABS Take 10 mg by mouth once a day dapagliflozin propanediol 38501729810 Linda De Leon IBUPROFEN (IBUPROFEN) 800 MG TABS Take 1 tablet by mouth every six hours as needed IBUPROFEN Linda De Leon TIZANIDINE HCL 4 MG TABS Take 1 tablet by mouth as needed tizanidine 96129067794 Linda De Leon TRAMADOL HCL 50 MG TABS every twelve hours tramadol 08861508271 Linda De Leon NITROGLYCERIN 0.[address] 1 tablet under tongue as needed nitroglycerin 38183409805 Linda Moises ONDANSETRON HCL 4 MG TABS Take 1 tablet by mouth every eight hours as needed ondansetron hcl 36903393667 Linda Moises SPIRONOLACTONE 50 MG TABS Take 1 tablet by mouth once a day spironolactone 98792930525 Linda De Leon SITagliptin (JANUVIA) 25 MG tablet Take 1 tablet by mouth once a day JANOLIVER De Leon NEBIVOLOL HCL 5 MG TABS Take 1 tablet by mouth once a day nebivolol 35345312894 Jazieltyree De Leon GLYXAMBI 10-5 MG TABS Take 1 tablet by mouth once a day empagliflozin-li nagliptin 97049225374 Linda De Leon VENTOLIN HFA 108 (90 Base) MCG/ACT AERS INHALE TWO PUFFS BY MOUTH EVERY 4 TO 6 HOURS NEEDED 01/19 albuterol sulfate 53077859931 QIE qieuser TRAMADOL HCL 50 MG TABS Every 12 (Twelve) Hours. 01/19 tramadol 52421358791 QIE qieuser TIZANIDINE HCL 4 MG TABS Take 1 tablet by mouth As Needed. 01/19 tizanidine 04877089775 QIE qieuser SUCRALFATE 1 GM TABS Take 1 tablet by mouth 4 (Four) Times a Day. 01/19 sucralfate 91731461103 QIE qieuser SPIRONOLACTONE 50 MG TABS TAKE ONE TABLET BY MOUTH EVERY DAY 01/19 spironolactone 01762126738 QIE qieuser SITagliptin (JANUVIA) 25 MG tablet Take 1 tablet by mouth Daily. 01/19 JANUVIA QIE qieuser PRAVASTATIN SODIUM 10 MG TABS TAKE ONE TABLET BY MOUTH EVERY DAY AT BEDTIME 01/19 pravastatin 61252727900 QIE qieuser ONDANSETRON HCL 4 MG TABS Take 1 tablet by mouth Every 8 (Eight) Hours As Needed. 04/27 ondansetron hcl 16909065724 QIE qieuser OMEPRAZOLE 20 MG CPDR TAKE ONE CAPSULE BY MOUTH EVERY DAY 04/27 omeprazole 67908590375 QIE qieuser O2 (OXYGEN) 2 L by Alternating Nares route Every Night. OXYGEN QIE qieuser NITROGLYCERIN 0.[address] 1 tablet under the tongue As Needed for Chest Pain. 01/19 nitroglycerin 48922473469 QIE qieuser NEBIVOLOL HCL 5 MG TABS TAKE ONE TABLET BY MOUTH EVERY DAY 01/19 nebivolol 54209329470 QIE qieuser METFORMIN HCL 500 MG TABS Take 1 tablet by mouth 2 (Two) Times a Day. 01/19 metformin 69703223065 QIE qieuser IPRATROPIUM-ALBUT MIK 0.5-2.5 (3) MG/3ML SOLN ipratropium-albu terol 37803399708 QIE qieuser INDOMETHACIN 50 MG CAPS Take 1 capsule by mouth 3 (Three) Times a Day With Meals. 01/19 indomethacin 01597903452 QIE qieuser IBUPROFEN (IBUPROFEN) 800 MG TABS Take 1 tablet by mouth Every 6 (Six) Hours As Needed. 01/19 IBUPROFEN QIE qieuser ENTRESTO 24-26 MG TABS TAKE ONE TABLET BY MOUTH TWICE DAILY 01/19 sacubitril-valsa rtan 89332181502 QIE qieuser GLYXAMBI 10-5 MG TABS Take 1 tablet by mouth Daily. 01/19 empagliflozin-li nagliptin 32533651597 QIE qieuser FARXIGA 10 MG TABS Take 10 mg by mouth Daily. 01/19 dapagliflozin propanediol 20042092676 QIE qieuser BUMETANIDE 2 MG TABS TAKE ONE TABLET BY MOUTH TWICE DAILY 01/19 bumetanide 96282802630 QIE qieuser ADVAIR DISKUS 250-50 MCG/ACT AEPB Inhale 1 puff 2 (Two) Times a Day. 01/19 fluticasone propion-salmeter ol 05855932217 QIE qieuser CEFUROXIME AXETIL 500 MG TABS 1 tablet by mouth twice a day cefuroxime axetil 11652580167 Calvin Villarreal MD Medications Administered No information [...]
[2025-07-11 17:12] VITALS: BP 143/92; PULSE 79; O2SAT 95
[2025-07-11 17:13] VITALS: BP 143/92; PULSE 76; RESP 15; TEMP 36.9; O2SAT 94; BMI 46.9
--- NOTE | 2025-07-11 17:14 | CT_ITS ---
PROCEDURE INFORMATION: Exam: CT Abdomen And Pelvis With Contrast Exam date and time: 07/11/2025 6:43 PM Age: 50 years old Clinical indication: Abdominal pain; Flank; Left; Additional info: L flank / llq pain TECHNIQUE: Imaging protocol: Computed tomography of the abdomen and pelvis with contrast. Total images: 360 Radiation optimization: All CT scans at this facility use at least one of these dose optimization techniques: automated exposure control; mA and/or kV adjustment per patient size (includes targeted exams where dose is matched to clinical indication); or iterative reconstruction. Contrast material: ISOVUE; Contrast volume: 75 ml; Contrast route: IV; COMPARISON: CT ABDOMEN PELVIS W CON 06/13/2025 12:49 AM FINDINGS: Lungs: Stable 8 mm nodular density in the inferior lingula, axial image 18 series 3. Heart: Normal heart size. Liver: Mild hepatomegaly at 18.6 cm. Slight decreased liver attenuation from phase of contrast versus steatosis. Normal contour. No mass. Gallbladder and biliary ducts: Status post cholecystectomy. Mild biliary ductal dilatation most in keeping with post cholecystectomy ectasia. Pancreas: Normal. No ductal dilation. Spleen: Mild splenomegaly at 16 cm. Adrenal glands: Normal. No mass. Kidneys and ureters: Single nonobstructing 3 mm calculus in each kidney. No hydronephrosis or renal mass. No perinephric fluid. No ureteral stones. Stomach and bowel: Moderate gastric distension with recently ingested content. Small duodenal diverticulum. No ileus or bowel obstruction. Small bowel appears within normal limits. Mild scattered colonic diverticulosis. No acute diverticulitis. Unremarkable rectum. Appendix: Normal appendix. Intraperitoneal space: Unremarkable. No free air. No significant fluid collection. Vasculature: Nonaneurysmal abdominal aorta. Major abdominal vessels enhance appropriately. Dilated main portal vein at 17 mm. No portal thrombus. Pelvic phleboliths. Lymph nodes: Unremarkable. No enlarged lymph nodes. Urinary bladder: Unremarkable as visualized. Reproductive: Status post hysterectomy. Complex mixed cystic and solid left adnexal mass measuring 5.5 cm. 11.5 cm simple appearing right adnexal cystic mass with imperceptible wall. Bones/joints: Scattered mild degenerative changes of the thoracolumbar spine. Mild degenerative changes bilateral hips and SI joints. Minor lumbar levocurvature. No acute osseous abnormality. Soft tissues: Midline abdominal wall scarring. Small fat containing left lower quadrant abdominal wall hernia. Diastasis of the rectus fascia. IMPRESSION: 1. Known complex 5.5 cm left adnexal lesion. Known simple appearing 11.5 cm right adnexal lesion. Recommend follow-up nonemergent pelvic MRI as previously described. Ovarian neoplasm is the diagnosis for exclusion for both lesions. 2. 3 mm nonobstructing intrarenal calculi bilaterally. No hydronephrosis. 3. Mild biliary ductal dilatation, unchanged likely reflecting post cholecystectomy ectasia. 4. Mild hepatosplenomegaly. 5. 8 mm lingular nodule, retrospectively unchanged. For patients at low risk (minimal or absent history of smoking and of other known risk factors), recommend CT Chest at 3-6 months, then consider CT Chest at 18-24 months. For patients at high risk (history of smoking or of other known risk factors), recommend CT Chest at 3-6 months, then CT Chest at 18-24 months. (Reference: Nazanin) 6. Mild scattered colonic diverticulosis. 7. Additional chronic and incidental findings. REFERENCES: Nazanin H, et al. Guidelines for Management of Incidental Pulmonary Nodules Detected on CT Images: From the Fleischner Society 2017. Radiology. 2017;284(1):228-243.
[2025-07-11 17:19] LABS: Microscopic, Urine URINE MICROSCOPIC (MICROSCOPIC)
--- NOTE | 2025-07-11 17:19 | ED_ITS ---
<Statement entered by David Molina MD - 07/11/25 23:32> I was consulted by the MARCUS, and we discussed the complexity of the problems being addressed. I approved the treatment and management plan for this patient's care in the emergency department, thus performing a substantive portion of the medical decision making. David Molina MD Discharge Plan Disposition Patient Disposition: Home, Self-Care Condition: Good Prescriptions Prescriptions: No Action spironolactone [Aldactone] 50 mg tablet 50 mg PO DAILY omeprazole 20 mg capsule,delayed release(DR/EC) 20 mg PO DAILY nitroglycerin 0.4 mg tablet, sublingual 0.4 mg sublingual Q5MINP PRN (Reason: Chest Pain) Patient Comments: DISSOLVE 1 TABLET UNDER THE TONGUE EVERY 5 MINUTES NEEDED FOR CHEST PAIN. DO NOT EXCEED A TOTAL OF 3 DOSES IN 15 MINUTES. IF NO RELIEF AFTER 3 DOSES CALL 911/GO TO ER pravastatin 40 mg tablet 40 mg PO HS Qty: 90 1RF Mounjaro 7.5 mg/0.5 mL pen injector See Rx Instructions .ROUTE .COMPLEX Qty: 2 0RF Dose Instruction: INJECT 7.5MG (0.5ML) SUBCUTANEOUSLY WEEKLY Rx Instructions: INJECT 7.5MG (0.5ML) SUBCUTANEOUSLY WEEKLY ibuprofen 800 mg tablet See Rx Instructions .ROUTE .COMPLEX Qty: 180 1RF Dose Instruction: TAKE ONE TABLET BY MOUTH THREE TIMES DAILY NEEDED FOR PAIN Rx Instructions: TAKE ONE TABLET BY MOUTH THREE TIMES DAILY NEEDED FOR PAIN promethazine 12.5 mg tablet See Rx Instructions .ROUTE .COMPLEX Qty: 20 0RF Dose Instruction: TAKE ONE TABLET BY MOUTH EVERY 8 HOURS NEEDED FOR NAUSEA MAY CAUSE DROWSINESS Rx Instructions: TAKE ONE TABLET BY MOUTH EVERY 8 HOURS NEEDED FOR NAUSEA MAY CAUSE DROWSINESS cholecalciferol (vitamin D3) 125 mcg (5,000 unit) capsule 5,000 unit PO Q48H bumetanide 2 mg tablet 2 mg PO BIDL ondansetron HCl 4 mg Tablet 4 mg PO Q6HP PRN (Reason: Nausea And Vomiting) albuterol sulfate 90 mcg/actuation Hfa Aerosol Inhaler 2 puff INHALATION QIDP PRN (Reason: Shortness Of Breath) nebivolol 5 MG tablet 5 mg PO DAILY cetirizine [Zyrtec] 10 mg Tablet 10 mg PO DAILY metformin 500 mg tablet 500 mg PO BIDWMEAL Rx Instructions: TAKE ONE TABLET BY MOUTH TWICE DAILY montelukast 10 mg tablet 10 mg PO HS Rx Instructions: TAKE ONE TABLET BY MOUTH EVERY DAY AT BEDTIME FOR ASTHMA sacubitril-valsartan [Entresto] 24-26 mg tablet 1 tab PO BID Trelegy Ellipta 100-62.5-25 mcg blister with device 1 inh inhalation DAILY Rx Instructions: INHALE 1 PUFF BY MOUTH EVERY DAY - RINSE MOUTH AFTER USE - tramadol 50 mg tablet 50 mg PO Q6HP PRN (Reason: Moderate Pain (Scale Score 5-6)) Linzess 290 mcg capsule 290 mcg PO DAILY Referrals Follow up/Referrals: Juarez Griffin MD [Primary Care Provider, Medical] - See instructions Karen Naqvi DO [Staff Physician, CALCULUS PROFESSOR] - See instructions Kylie Harmon MD [Physician, Pulmonology] - See instructions Activity Restrictions/Add. Instructions Additional Instructions/Restrictions: Today you were evaluated in the emergency department. You have a left adnexal lesion and a right adnexal lesion that is recommended that you have a pelvic MRI for further evaluation. You also have a 8 mm lung nodule that needs evaluation. It is very important that you call the hairmasters manager for further evaluation. Follow-up with your PCP. Return to the ED for any worsening of your condition. Clinical Impressions Clinical Impression: Lesion of left ovary, Lesion of right ovary, Lung nodule, Pelvic pain Instructions Patient Instructions: DI for Pelvic Pain Print Language Print Language: Australian Discharge ED Provider: David Molina General Adult HPI General Chief complaint: Urogenital-Female Stated complaint: left side back pain,nausea,fever,chills Time Seen by Provider: 07/11/25 17:14 Mode of Arrival: Ambulatory Source of Information: Patient Description of Symptoms (Recalled from ER Triage Doc. by RN): pt reports left flank pain x2 days and lower abdominal discomfort. has a history of recurrent UTIS History of Present Illness HPI narrative: patient is a 50-year-old female PMHx antibiotic resistant UTIs, hyperlipidemia, history of pyelonephritis, hypertension, obesity, hysterectomy who presents to the ED with complaints of left flank pain that radiates down to the left groin. Patient states she has had bodyaches and nausea. She reports this feels like her normal UTI. Patient states she has been septic multiple times from UTI and pyelonephritis. Her most recent UTI was approximately 1 month ago and she was on meropenem IV and hospitalized. Related Data Home Medications ?Medication ?Instructions ?Recorded ?Confirmed nebivolol 5 mg tablet 5 mg PO DAILY 12/21/2106/18 spironolactone 50 mg tablet 50 mg PO DAILY 03/30/22 (Aldactone) omeprazole 20 mg capsule,delayed 20 mg PO DAILY 06/18/25 release cetirizine 10 mg tablet (Zyrtec) 10 mg PO DAILY 06/18/25 cholecalciferol (vitamin D3) 125 5,000 unit PO Q48H 06/18/25 mcg (5,000 unit) capsule albuterol sulfate 90 mcg/actuation 2 puff inhalation Q IDP PRN 03/12/25 06/18/25 aerosol inhaler Shortness Of Breath bumetanide 2 mg tablet 2 mg PO BIDL 03/12/25 ondansetron HCl 4 mg tablet 4 mg PO Q6HP PRN Nausea An d 03/12/25 06/18/25 Vomiting nitroglycerin 0.4 mg sublingual 0.4 mg sublingual Q5MI POLLS OR SURVEYS INTERVIEWER PRN Chest 05/26/25 06/18/25 tablet Pain fluticasone fur. 100 mcg-umeclid 1 inh inhalation MCKENZIE Y 06/13/25 06/18/25 62.5 mcg-vilant 25 mcg inhalat.powder (Trelegy Ellipta) linaclotide 290 mcg capsule 290 mcg PO DAILY 06/13/25 06/18/25 (Linzess) metformin 500 mg tablet 500 mg PO BIDWMEAL 06/13/25 06/18/25 montelukast 10 mg tablet 10 mg PO HS 06/13/25 5 sacubitril 24 mg-valsartan 26 mg 1 tab PO BID 06/13/25 06/18/25 tablet (Entresto) tramadol 50 mg tablet 50 mg PO Q6HP PRN Moderate P ain 06/13/25 06/18/25 (Scale Score 5-6) Previous Rx's ?Medication ?Instructions ?Recorded pravastatin 40 mg tablet 40 mg PO HS #90 tabs 5 ibuprofen 800 mg tablet See Rx Instructions .Route 0 07/02/25 .COMPLEX #180 tabs promethazine 12.5 mg tablet See Rx Instructions .Route 07/02/25 .COMPLEX #20 tabs tirzepatide 7.5 mg/0.5 mL See Rx Instructions .Route 0 07/02/25 subcutaneous pen injector .COMPLEX #2 mL (Mounjaro) Allergies Allergy/AdvReac Type Severity Reaction Status Date / Time aspirin Allergy Severe S-DIFF. Verified 06/18/25 15:19 BREATHING bee venom protein (honey bee) Allergy Severe Anaphylaxis Verified 06/18/25 15:19 Bleach (Sodium Hypochlorite) Allergy Severe diff. Verified 06/18/25 15:19 breathing, dizzy amoxicillin (From Augmentin) Allergy Mild Unknown Verified 06/18/25 15:19 allergy reaction clavulanic acid (From Allergy Mild Unknown Verified 06/18/25 15:19 Augmentin) allergy reaction fluconazole (From Diflucan) Allergy Mild Unknown Verified 06/18/25 15:19 allergy reaction levofloxacin (From Levaquin) Allergy Difficulty Verified 06/18/25 15:19 Breathing pneumococcal vaccine Allergy Unknown Verified 06/18/25 15:19 allergy reaction sulfamethoxazole (From Allergy Unknown Verified 06/18/25 15:19 Bactrim) allergy reaction trimethoprim (From Bactrim) Allergy Unknown Verified 06/18/25 15:19 allergy reaction sucralose (From SUCRALOSE AdvReac Severe breathing Verified 06/18/25 15:19 (FOOD/DRUG)) problems PFSH [facility] Disclaimer: The information contained in this section may have been updated after the patient was seen, as this information can be updated by other users. Medical History Rheumatoid arthritis Polycystic disease, ovary Type 2 diabetes mellitus without complications Hyperparathyroidism Status post removal of parathyroid adenoma Multiple thyroid nodules Recurrent urinary tract infection This was a ESBL positive E. coli?treated with IM ertapenem. Bilateral nephrolithiasis BMI 45.0-49.9, adult Adnexal mass Ovarian cyst Diastolic CHF with preserved left ventricular function, NYHA class 2 Surgical History History of cardiac catheterization x2 History of loop recorder History of eye surgery History of nephrolithotomy with removal of calculi History of cholecystectomy S/P right oophorectomy S/P hysterectomy History of tubal ligation Family History Other Alzheimer disease Bipolar 1 disorder Dementia Family history of diabetes mellitus type II Family history of myocardial infarction Lung cancer Lupus Social History Smoking Status: Never smoker second hand exposure: No alcohol intake: never substance use type: denies use current occupational status: unemployed and disabled Travel in the last 8 weeks?: None household members: spouse housing: house current occupational exposures/hazards: No caffeine: Yes Have you lived/traveled outside US in past 30 days?: No Contact w/someone who lives/traveled outside US past 30 days?: No Exposure to someone with infectious disease in past 14 days?: No Do you have a fever (greater than 100.4 F or 38 C)?: No Have you tested positive for COVID-19?: No Exposed to someone with COVID-19 in past 14 days?: No Do you have a sore throat?: No Do you have a cough?: No Do you have any weakness?: No Do you have any diarrhea?: No Are you experiencing any unusual bleeding?: No Do you have any muscle aches/pain?: No Do you have any abdominal pain?: No Are you experiencing loss of taste or smell?: No Other Medical History Have you received the Flu Vaccine for this season: No Have you received the Pneumonia Vaccine: No ROS Obtained: Yes Systems reviewed as appropriate & no additional complaints except as documented Physical Exam General General appearance: alert Head Head exam: atraumatic Eye Eye exam: Present PERRL and EOMI Chest Chest inspection: Present normal inspection Respiratory Respiratory exam: Present normal lung sounds bilaterally Cardiovascular Cardiovascular exam: Present regular rate Abdominal Exam Abdominal exam: Present tenderness (LLQ) Back Exam Back exam: Present CVA tenderness (L) Neurological Exam Neurological exam: Present alert and oriented X3 Skin Skin exam: Present dry Medical Decision Making Medical Records Screening: Per USPSTF and CDC recommendations, given the prevalence of disease in our region, it is our hospital?s policy to screen for HIV and viral Hepatitis for all patients aged 18 and over and those with ongoing risk factors. Harjinder Inquiry Pt receiving controlled substance: No Vital Signs: 07/11/25 17:12 07/11/25 17:13 07/11/25 17:30 Temperature 98.5 F Temperature Source Oral Pulse Rate 79 65 Pulse Rate [Right] 76 Respiratory Rate 15 Blood Pressure 143/92 H Blood Pressure [Right Arm] 143/92 H Blood Pressure Mean [Right Arm] 109 02 Sat by Pulse Oximetry 95 94 L 96 Oxygen Delivery Method Room Air Room Air Room Air 07/11/25 18:31 07/11/25 20:00 07/11/25 20:40 Temperature 98.9 F Temperature Source Pulse Rate 63 58 L 78 Pulse Rate [Right] Respiratory Rate 17 Blood Pressure 112/48 L 93/54 L 118/89 Blood Pressure [Right Arm] Blood Pressure Mean [Right Arm] 02 Sat by Pulse Oximetry 95 95 Oxygen Delivery Method Room Air Room Air Lab Data Lab Results 07/11/25 17:11: Urine Color Yellow, Urine Appearance Clear, Urine pH 5.5, Ur Specific [place] 1.015, Urine Protein Negative, Urine Glucose (UA) Negative, Urine Ketones Negative, Urine Blood Negative, Urine Nitrate Negative, Urine Bilirubin Negative, Urine Urobilinogen 0.2, Ur Leukocyte Esterase Negative, Urine RBC Occasional, Urine WBC 3-5, Ur Squamous Epith Cells 10-20, Urine Bacteria 1+ 07/11/25 17:17: WBC 12.4 H, RBC 4.91, Hgb 14.0, Hct 43.2, MCV 88.0, MCH 28.5, MCHC 32.4, RDW 12.8, Plt Count 328, MPV 10.3, Neut % (Auto) 64.2, Lymph % (Auto) 28.2, [place] % (Auto) 5.1, Eos % (Auto) 1.8, Baso % (Auto) 0.5, Neut # (Auto) 8.0 H, Lymph # (Auto) 3.5, [place] # (Auto) 0.6, Eos # (Auto) 0.2, Baso # (Auto) 0.1, Sodium 141, Potassium 3.7, Chloride 103, Carbon Dioxide 26, Anion Gap 15.7 H, BUN 14, Creatinine 0.70, Estimated Creat Clear 78, Estimated GFR 88, Est GFR ( Amer) 106, Glucose 122 H, Calcium 9.3, Total Bilirubin 0.4, AST 34, ALT 36, Alkaline Phosphatase 80, Total Protein 7.8, Albumin 4.3, Globulin 3.5 H, Albumin/Globulin Ratio 1.2 07/11/25 19:32: Lactate 1.0 07/11/25 17:17 07/11/25 17:17 Orders (Tests/Meds): ED MEDICATIONS Discontinued Medications Generic Name Dose Route Start Last Admin Trade Name Pete PRN Reason Stop Dose Admin Hydromorphone HCl 1 mg 07/11/25 19:27 07/11/25 19:50 Hydromorphone 2mg/Ml Syringe IV 07/11/25 19:28 1 mg ONCE ONE Administration Sodium Chloride 1,000 mls @ 999 mls/hr 07/11/25 17:14 07/11/25 19:36 Sod Chlor 0.9% 1000ml Bag IV 07/11/25 18:14 Infused .Q1H1M ONE Infusion Iopamidol 75 ml 07/11/25 18:43 07/11/25 18:44 Iopamidol-370 (76%);100ml Bottle IV 07/11/25 18:44 75 ml ONCE ONE Administration Ketorolac Tromethamine 15 mg 07/11/25 17:38 07/11/25 17:46 Ketorolac 15mg/Ml Vial IV 07/11/25 17:39 15 mg ONCE ONE Administration Morphine Sulfate 4 mg 07/11/25 17:14 07/11/25 17:37 Morphine 4mg/Ml Syringe IV 07/11/25 17:15 Not Given ONCE ONE Ondansetron HCl 4 mg 07/11/25 17:14 07/11/25 17:33 Ondansetron 4mg/2ml Vial IV 07/11/25 17:15 4 mg ONCE ONE Administration Sodium Chloride 10 ml 07/11/25 18:43 07/11/25 18:44 Sodium Chloride 0.9% 10ml Syr (Rad Only) IV 07/11/25 18:44 10 ml ONCE ONE Administration ORDERS Category Date Time Status CT abdomen pelvis w con Stat Cat Scan 07/11/25 17:14 Completed CBC w/Auto Diff [Complete Blood Count Auto Diff] Stat Lab 07/11/25 17:17 Completed CMP [Comprehensive Metabolic Panel] Stat Lab 07/11/25 17:17 Completed Lactic Acid Stat Lab 07/11/25 19:32 Completed Urinalysis and Microscopic Stat Lab 07/11/25 17:11 Completed Medical Decision Narrative: In summary, patient is a 50-year-old female PMHx antibiotic resistant UTIs, hyperlipidemia, history of pyelonephritis, hypertension, obesity, hysterectomy who presents to the ED with complaints of left flank pain that radiates down to the left groin. Patient states she has had bodyaches and nausea. She reports this feels like her normal UTI. Patient states she has been septic multiple times from UTI and pyelonephritis. Her most recent UTI was approximately 1 month ago and she was on meropenem IV and hospitalized. Denies additional complaints at this time. Denies fever, headache, visual disturbances, neck pain, chest pain, shortness of breath. Upon initial evaluation patient is alert, oriented and cooperative. She is hemodynamically stable. Physical exam is remarkable for left flank tenderness and left lower quadrant abdominal tenderness. Afebrile at this time. Differential diagnosis includes sepsis, pyelonephritis, abscess, resistant UTI, STI, among others. Discussed with patient we will proceed with labs, IV fluids and CT scan. Will symptomatically manage with morphine and Zofran. She is agreeable to plan at this time. CBC remarkable for WBC 12.4, stable H&H. CMP gap 15.7, glucose 122. Urinalysis unremarkable for any nitrites, negative leukocytes, squames 10-20, 1+ bacteria. CT results remarkable for a 5.5 cm left adnexal lesion, 11.5 cm right adnexal lesion which recommends a follow-up nonemergent pelvic MRI. 3 mm nonobstructing intrarenal calculi bilaterally. 8 mm lingular nodule. I discussed all of this in depth with patient and her partner. I advised her she will need to follow-up with her PCP or OB to have the pelvic MRI ordered. We discussed following up with pulmonology lung nodule clinic for further evaluation of her lingering lung nodule. Patient verbalized understanding and states that she will make a follow-up appointment for both of these. Advised her to return to the ED for any worsening of her condition. We discussed taking acetaminophen [id number] for pain as directed. Discussed that her urine was not infected at this time however if condition changes she needs to return to ED. Critical Care Critical Care Time Critical Care Time: No
[2025-07-11 17:23] LABS: Bilirubin,Urine Negative (Negative); Color,Urine YELLOW (Yellow); Glucose,Urine (UA) Negative (Negative); Ketones,Urine Negative (Negative); Leukocyte Esterase,Urine Negative (Negative); PH,Urine 5.5 (5.0-8.5); Protein,Urine Negative (Negative); Specific Gravity, Urine 1.015 (1.005-1.030); Urobilinogen,Urine 0.2 EU/dl (0.2)
[2025-07-11 17:26] LABS: Hematocrit 43.2 % (37.0-47.0); Hemoglobin 14.0 g/dL (12.2-16.2); Immature Granulocytes % 0.2 %; Mean Corpuscular HGB Conc 32.4 g/dL (31.8-35.4); Mean Corpuscular Hemoglobin 28.5 pg (27.0-31.2); Mean Corpuscular Volume 88.0 fl (81-99); Nucleated Red Blood Cells % 0 %; Platelet Count 328 K/mm3 (142-424); Red Blood Count 4.91 M/mm3 (4.20-5.40); Red Cell Distribution Width-SD 41.2 fL; White Blood Count 12.4 K/mm3 (4.8-10.8)
[2025-07-11 17:30] VITALS: PULSE 65; O2SAT 96
[2025-07-11] MEDS: 0.9 % SODIUM CHLORIDE 1000ML 1,000 ML 999 ML IV (17:33)
[2025-07-11] MEDS: ONDANSETRON 4MG/2ML VIAL 4 MG IV (17:33)
[2025-07-11 17:35] LABS: Chloride 103 mmol/L (98-107)
[2025-07-11 17:36] LABS: Albumin Level 4.3 g/dl (3.5-5.0); Potassium 3.7 mmoL/L (3.5-5.1); Sodium 141 mmol/L (136-145)
[2025-07-11 17:38] LABS: Alanine Aminotransferase 36 U/L (12-78); Anion Gap 15.7 mEq/L (5-15); Aspartate Amino Transferase 34 U/L (14-36); Blood Urea Nitrogen 14 mg/dl (7-17); Carbon Dioxide 26 mmol/L (22.0-30.0); Creatinine Clearance Estimated 78 mL/min (50-200); Creatinine,Serum 0.70 mg/dl (0.52-1.04); Estimated Glomerular Filt Rate 88 ml/min (>60); GFR (African American) 106 ML/MIN (>60)
[2025-07-11 17:39] LABS: Albumin/Globulin Ratio 1.2 (1.1-1.8); Alkaline Phosphatase 80 U/L (38-126); Bilirubin,Total 0.4 mg/dl (0.2-1.3); Calcium 9.3 mg/dl (8.4-10.2); Globulin 3.5 g/dL (1.3-3.2); Glucose 122 mg/dl (74-100); Total Protein,Serum 7.8 g/dl (6.3-8.2)
[2025-07-11] MEDS: KETOROLAC 15MG/ML VIAL 15 MG IV (17:46)
[2025-07-11 18:10] LABS: Bacteria,Urine 1+ /lpf; RBC,Urine Occasional #/hpf (0-3)
[2025-07-11 18:31] VITALS: BP 112/48; PULSE 63; O2SAT 95
[2025-07-11] MEDS: SODIUM CHLORIDE 0.9% 10ML SYR (RAD ONLY) 10 ML IV (18:44)
[2025-07-11] MEDS: IOPAMIDOL-370 (76%);100ML BOTTLE 75 ML IV (18:44)
[2025-07-11] MEDS: HYDROMORPHONE 2MG/ML SYRINGE 1 MG IV (19:50)
[2025-07-11 20:00] VITALS: BP 93/54; PULSE 58; O2SAT 95
[2025-07-11 20:40] VITALS: BP 118/89; PULSE 78; RESP 17; TEMP 37.2
== END 2025-07-11 20:41 | disposition home or self-care (01) ==
PROVIDERS: Nurse Practitioner; Emergency Provider Emergency Medicine; PCP Internal Medicine
DX: R10.2 Pelvic and perineal pain (principal); N83.8 Other noninflammatory disorders of ovary, fallopian tube and broad ligament; R91.1 Solitary pulmonary nodule
CPT/HCPCS: 74177; 80053; 81001; 83605; 85025; 96361; 96374; 96375; 99285; J1171; J1885; J2405; J7030; Q9967

== ENCOUNTER 2025-07-28 16:15 | Outpatient (CLI) | payer OTHER, SELFPAY ==
[2025-07-28 17:16] LABS: Hematocrit 43.6 % (37.0-47.0); Hemoglobin 13.8 g/dL (12.2-16.2); Immature Granulocytes % 0.5 %; Mean Corpuscular HGB Conc 31.7 g/dL (31.8-35.4); Mean Corpuscular Hemoglobin 28.2 pg (27.0-31.2); Mean Corpuscular Volume 89.2 fl (81-99); Nucleated Red Blood Cells % 0 %; Platelet Count 320 K/mm3 (142-424); Red Blood Count 4.89 M/mm3 (4.20-5.40); Red Cell Distribution Width-SD 42.5 fL; White Blood Count 15.5 K/mm3 (4.8-10.8)
[2025-07-28 17:40] LABS: Alanine Aminotransferase 30 U/L (12-78); Albumin Level 3.9 g/dl (3.5-5.0); Albumin/Globulin Ratio 1.6 (1.1-1.8); Alkaline Phosphatase 93 U/L (38-126); Anion Gap 13.5 mEq/L (5-15); Aspartate Amino Transferase 20 U/L (14-36); Bilirubin,Total 0.7 mg/dl (0.2-1.3); Blood Urea Nitrogen 17 mg/dl (7-17); Calcium 9.3 mg/dl (8.4-10.2); Carbon Dioxide 28 mmol/L (22.0-30.0); Chloride 100 mmol/L (98-107); Creatinine,Serum 0.70 mg/dl (0.52-1.04); Estimated Glomerular Filt Rate 88 ml/min (>60); GFR (African American) 106 ML/MIN (>60); Globulin 2.5 g/dL (1.3-3.2); Glucose 129 mg/dl (74-100); Potassium 4.5 mmoL/L (3.5-5.1); Sodium 137 mmol/L (136-145); Total Protein,Serum 6.4 g/dl (6.3-8.2)
--- OUTSIDE RECORDS SUMMARY | 2025-07-29 10:51 | XMS_ITS | Clinical Summary ---
Author Organization [facility] Address [address] [place] [address] Care Team Providers Care Cyber Analyst Name Role Phone Juarez Griffin MD Primary Care Provider [phone] Karen Naqvi DO Unavailable [phone] Allergies Active Allergy Reactions Criticality Noted Date [...] Date Bilateral ovarian cysts 10/05/2024 Nephrolithiasis 04/11/2024 Right renal stone 04/10/2024 Morbid (severe) obesity due to excess calories 0 03/10/2024 Chronic obstructive pulmonary disease, unspecifi ed 02/06/2024 Obstructive and reflux uropathy, unspecified 01/2024 Type 2 diabetes mellitus wit hout complication, without long-term current use of insulin 01/17/2023 Overview (04/10/2024): Last Assessment & Plan: Discussed Ozempic as a way for weight loss and diabetic control. COPD (chronic obstructive pu lmonary disease) with chronic bronchitis 05/22/2006 Resolved Problems Problem Noted Date Diagnosed Date Resolved Date Acute kidney injury 04/10/2024 07/18/20 25 Recurrent UTI 03/09/2024 07/18/2025 Immunizations Immunization Administration Dates Next Due Influenza, Injectable, MDCK, trivalent, PF 08/05 Influenza, Unspecified 10/29/2022 Pneumococcal Conjugate PCV 13 09/06/2021 Zoster, Recombinant 10/30/2023,05/27/2023 Family History Medical History Relation Name Comments Diabetes Father [place] Heart disease Father [place] Hypertension Father [place] Dementia Mother Marzena Hypertension Mother Marzena Cancer Mother's Brother Lino Heart disease Mother's Brother Lino Diabetes insipidus Other 1 Hypertension Other 2 Lupus Other 3 Cancer Paternal Grandfather Unknown Anesthesia problems Sister Marta Diabetes Sister Marta Heart disease Sister Marta Hypertension Sister Marta Relation Name Status Comments Father [place] Mother Marzena Mother's Brother Lino Other 1 [...] drink first t yue in the morning (EYE-BLADE WORKER) to steady your nerves or to [...] Screening 2023 [facility]-Diabetes: Hemoglobin A1C 10/08/2024 04/10/2024 [id number] Vaccine ( season) 2025 10/07/2022, 08/21/2021 [facility]-Influenza Vaccine (#1) [...] this topic Medical Devices Implanted Type Area Special Education Superintendent Device Identifier Shelf Expiration Date Model / Serial / Lot Stent Ureteral Double Pigtail Pos 6fr 24cm - [id number] - [id number] Implanted:Qty: 1 on 04/11/2024 by Harvey Macdonald MD at [facility] Stent Right: [id number] 01/02/2026 [id number] / [id number] / [id number] Recorder-2016 Implanted:04/28 (Quantity not on file) [...] Reactive Non Reactive 04/10/2024 7:25 PM EDT [facility] Comment:Screening for HIV 1 & 2 antibodies, and P24 antigen is NONREACTIVE. No confirmatory testing is required. Blood Venous blood specimen / Unknown Venipuncture / Unknown 04/10/2024 6:11 PM EDT 04/10/2024 6:27 PM EDT Susan Mcclure MD LAB BLOOD ORDERABLES Final Re sult [facility] [address] [place] [address] * Hepatitis C Antibody - ED (04/10/2024 6:11 PM EDT) Hepatitis C Antibody Negative Negative 04/10/2024 7:24 PM EDT [facility] Blood Venous blood specimen / Unknown Venipuncture / Unknown 04/10/2024 6:11 PM EDT 04/10/2024 6:26 PM EDT us Susan Mcclure MD LAB BLOOD ORDERABLES Final Re sult Performing Organization Address City/[facility]/ZIP Co de Phone Number [facility] [address] [place] [address] * (ABNORMAL) Hemoglobin A1c (04/10/2024 6:11 PM EDT) Hemoglobin A1c 6.3(H) <5.7 % 04/10/2024 9:31 PM EDT [facility] Blood Venous blood specimen / Unknown Venipuncture / Unknown 04/10/2024 6:11 PM EDT 04/10/2024 6:19 PM EDT Narrative [facility]ALTH[facility]ARE [facility] - 04/10/2024 9:31 PM EDT HA1C Interpretive Data: Diagnosis of Diabetes: Diabetic > or = 6.5% Pre-diabetic 5.7 to 6.4% Non-diabetic < or = 5.6% Glycemic Targets for Type I and Type II Diabetics: Non- Adults <7.0% Adults <6.0% Children and Adolescents <7.5% Source: [place] Diabetes Association. Standards of medical care in diabetes,2017. Diabetes Care.2017:40 (suppl 1):S1-S135. HbA1c assay performed by an ion-exchange chromatography method that is certified traceable to the DCCT. Joselito Berrios MD LAB BLOOD ORDERABLES Final Re sult Performing Organization Address City/[facility]/ZIP Co de Phone Number [facility] [address] [place] [address] from Last 3 Months or Most Recently Relevant to Health Maintenance Additional Health Concerns Infection Onset Date Last Indicated ESBL Comment:+ 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 Source: [facility]. This patient will require contact precautions indefinitely. 04/01/2024 Insurance [employer] [facility] MEDICAID Advance Directives * Full Code (Latest Code Status on File) Date Activated Date Inactivated Comments 04/11/2024 10:12 AM 04/12/2024 3:22 PM Question Answer Comments Patient has decision-making capacity? Yes Care Teams Cyber Analyst Relationship Specialty Start Date End Date Juarez Griffin MD [address] [place] [address] PCP - General 03/10/21 Karen Naqvi DO [address] [address] [place] [address] Referring Physician Obstetrics and Gynecology 09/23/24
--- OUTSIDE RECORDS SUMMARY | 2025-07-29 10:51 | XMS_ITS | Encounter Summary ---
Author Organization [facility] Address [address] [place] [address] Care Team Providers Care Gravity Flow Irrigator Name Role Phone Juarez Griffin MD Primary Care Provider [phone] Encounter Details Date Type Department Care Team (Late st Contact Info) Description 04/20/2024 Telephone [facility] [address] [place] [address] Demarcus Ames MD [address] [facility] [address] [place] [address] Social History Tobacco Use Types Packs/Day Years Used Date Smoking Tobacco: Never Passive Smoke Exposure: Never Smokeless Tobacco: Never Alcohol Use Standard Drinks/Week Comments Yes 0 (1 standard drink = 0.6 oz pur e alcohol) rarely [place] Utilities Answer Date Recorded In the past 12 months has [email or web address], gas, oil, or water [employer] threatened to shut off services in your [...] and heating? Not hard at all 04/16/2024 [employer] [place] [facility] Occupat ional [facility] - Occupational Stress [...] GED or equivalent No 04/16/2024 Preferred Language Taiwanese 04/16/2024 PHQ-2 Answer Date Recorded Retired PHQ-9: [...] Description 11/01/2025 1:30 PM EST Office Visit [facility] [address] [place] [phone] Yaneth Ugarte MD [address] [place] [address] documented as of this encounter Visit Diagnoses Not on filedocumented in this encounter Additional Health Concerns Infection Onset Date Last Indicated Resolved Time ESBL 04/01/2024 04/01/2024 03/03/2025 6:48 AM EDT documented as of this encounter Care Teams Gravity Flow Irrigator Relationship Specialty Start Date End Date Juarez Griffin MD [address] [facility] [address] [place] [address] PCP - General Internal Medicine 05/30/23 documented as of this encounter
--- OUTSIDE RECORDS SUMMARY | 2025-07-29 10:51 | XMS_ITS | Encounter Summary ---
Author Organization [facility] Address [address] [place] [address] Care Team Providers Care Call Center Support Representative Name Role Phone Juarez Griffin MD Primary Care Provider [phone] Reason for Visit * Reason Comments Med Refill Encounter Details Date Type Department Care Team (Late st Contact Info) Description 07/01/2025 Refill [facility] [address] [place] [address] Yaneth Ugarte MD [address] [place], [place] [id number] Med Refill Social History Tobacco Use Types Packs/Day Years Used Date Smoking Tobacco: Never Passive Smoke Exposure: Never Smokeless Tobacco: Never Alcohol Use Standard Drinks/Week Comments Not Currently 0 (1 standard drink = 0.6 oz pur e alcohol) Maybe 3 drinks annually [facility] Utilities Answer Date Recorded In the past 12 months has [employer], oil, or water [employer] threatened to shut off services in your [...] and heating? Not hard at all 04/16/2024 [facility] [place] of Occupat ional Health - Occupational Stress [...] Description 11/01/2025 1:30 PM EST Office Visit [facility] [address] [place] [phone] Yaneth Ugarte MD [address] [address] documented as of this encounter Visit Diagnoses Not on filedocumented in this encounter Care Teams Call Center Support Representative Relationship Specialty Start Date End Date Juarez Griffin MD [address] [facility] [address] [place] [address] PCP - General Internal Medicine 05/30/23 documented as of this encounter
--- OUTSIDE RECORDS SUMMARY | 2025-07-29 10:51 | XMS_ITS | Clinical Summary ---
Author Organization [facility] Address [address] [place] [address] Phone Care Team Providers Care Stenocaptioner Name Role Phone Zofia Perkins Unavailable Unavailable Conditions or Problems Problem Name Problem Code Onset Date Status Entry Date Provider Comment Standard Description Annotate Acute Pyelonephritis 29287699 (SNOMED CT) 01/07 Active 01/07 Malina Ames Acute pyelonephritis Obstructive uropathy with infection N13.6 (ICD-10-C M) 01/07 Active 01/07 Malina Ames Pyonephrosis Neutrophilic leukemoid reaction D72.823 (ICD-10-C M) 01/07 Active 01/07 Malina Ames Leukemoid reaction COPD 36044647 (SNOMED CT) 01/07 Active 01/07 Malina Ames Chronic obstructive pulmonary disease Morbid obesity due to excess calories E66.01 (ICD-10-C M) 01/07 Active 01/07 Malina Ames Morbid (severe) obesity due to excess calories DM Type II E11.9 (ICD-10-C M) 01/07 Active 01/07 Malina Ames Type 2 diabetes mellitus without complications Benign hypertensive heart disease with chronic diastolic heart failure (I50.32) 67056765 (SNOMED CT) 01/07 Active 01/07 Malina Ames Benign hypertension Medications Medication Instructions Start Date Stop Date Generic Name [facility] Provider FOSFOMYCIN TROMETHAMINE 3 GM PACK Take 1 packet by mouth as directed take 1 packet every 3-4 days (2 times weekly) fosfomycin tromethamine 27142963099 Calvin Villarreal MD PREDNISONE 20 MG TABS prednisone 86011259603 Milly Jabierbrianne VITAMIN C 500 MG CAPS twice a day ascorbic acid (vitamin c) 07557968180 Milly Mosquera HIPREX 1 GM TABS Take 1 tablet by mouth twice a day 02/18 methenamine hippurate 17259348628 Calvin Villarreal MD INDOMETHACIN 50 MG CAPS Take 1 capsule by mouth three times a day indomethacin 40970838665 Linda De Leon SUCRALFATE 1 GM TABS Take 1 tablet by mouth four times a day sucralfate 09675437450 Linda De Leon BUMETANIDE 2 MG TABS Take 1 tablet by mouth twice a day bumetanide 58788146195 Linda De Leon PRAVASTATIN SODIUM 10 MG TABS Take 1 tablet by mouth every night pravastatin 97828126898 Linda De Leon ENTRESTO 24-26 MG TABS Take 1 tablet by mouth twice a day sacubitril-valsa rtan 27713156695 Linda De Leon VENTOLIN HFA 108 (90 Base) MCG/ACT AERS Inhale 2 puff by mouth every four to six hours as needed albuterol sulfate 02061177565 Linda De Leon ADVAIR DISKUS 250-50 MCG/ACT AEPB Inhale 1 puff twice a day fluticasone propion-salmeter ol 49458752224 Linda De Leon OMEPRAZOLE 20 MG CPDR Take 1 capsule by mouth once a day omeprazole 89191188025 Linda De Leon METFORMIN HCL 500 MG TABS Take 1 tablet by mouth twice a day metformin 62466695266 Linda De Leon FARXIGA 10 MG TABS Take 10 mg by mouth once a day dapagliflozin propanediol 30701976100 Linda De Leon IBUPROFEN (IBUPROFEN) 800 MG TABS Take 1 tablet by mouth every six hours as needed IBUPROFEN Lnida De Leon TIZANIDINE HCL 4 MG TABS Take 1 tablet by mouth as needed tizanidine 59524663686 Linda De Leon TRAMADOL HCL 50 MG TABS every twelve hours tramadol 61712174149 iLnda De Leon NITROGLYCERIN 0.[address] 1 tablet under tongue as needed nitroglycerin 95760433375 Linda Moises ONDANSETRON HCL 4 MG TABS Take 1 tablet by mouth every eight hours as needed ondansetron hcl 37149004948 Linda Moises SPIRONOLACTONE 50 MG TABS Take 1 tablet by mouth once a day spironolactone 33570556347 Linda De Leon SITagliptin (JANUVIA) 25 MG tablet Take 1 tablet by mouth once a day JANOLIVER De Leon NEBIVOLOL HCL 5 MG TABS Take 1 tablet by mouth once a day nebivolol 23326869108 Jazieltyree De Leon GLYXAMBI 10-5 MG TABS Take 1 tablet by mouth once a day empagliflozin-li nagliptin 69198774236 Linda De Leon VENTOLIN HFA 108 (90 Base) MCG/ACT AERS INHALE TWO PUFFS BY MOUTH EVERY 4 TO 6 HOURS NEEDED 01/19 albuterol sulfate 67064754240 QIE qieuser TRAMADOL HCL 50 MG TABS Every 12 (Twelve) Hours. 01/19 tramadol 96179414819 QIE qieuser TIZANIDINE HCL 4 MG TABS Take 1 tablet by mouth As Needed. 01/19 tizanidine 71496568421 QIE qieuser SUCRALFATE 1 GM TABS Take 1 tablet by mouth 4 (Four) Times a Day. 01/19 sucralfate 57176685567 QIE qieuser SPIRONOLACTONE 50 MG TABS TAKE ONE TABLET BY MOUTH EVERY DAY 01/19 spironolactone 99366238025 QIE qieuser SITagliptin (JANUVIA) 25 MG tablet Take 1 tablet by mouth Daily. 01/19 JANUVIA QIE qieuser PRAVASTATIN SODIUM 10 MG TABS TAKE ONE TABLET BY MOUTH EVERY DAY AT BEDTIME 01/19 pravastatin 37079416376 QIE qieuser ONDANSETRON HCL 4 MG TABS Take 1 tablet by mouth Every 8 (Eight) Hours As Needed. 04/27 ondansetron hcl 90885473815 QIE qieuser OMEPRAZOLE 20 MG CPDR TAKE ONE CAPSULE BY MOUTH EVERY DAY 04/27 omeprazole 09635992469 QIE qieuser O2 (OXYGEN) 2 L by Alternating Nares route Every Night. OXYGEN QIE qieuser NITROGLYCERIN 0.[address] 1 tablet under the tongue As Needed for Chest Pain. 01/19 nitroglycerin 45713743839 QIE qieuser NEBIVOLOL HCL 5 MG TABS TAKE ONE TABLET BY MOUTH EVERY DAY 01/19 nebivolol 86707987242 QIE qieuser METFORMIN HCL 500 MG TABS Take 1 tablet by mouth 2 (Two) Times a Day. 01/19 metformin 16653324277 QIE qieuser IPRATROPIUM-ALBUT MIK 0.5-2.5 (3) MG/3ML SOLN ipratropium-albu terol 19610282494 QIE qieuser INDOMETHACIN 50 MG CAPS Take 1 capsule by mouth 3 (Three) Times a Day With Meals. 01/19 indomethacin 44650036105 QIE qieuser IBUPROFEN (IBUPROFEN) 800 MG TABS Take 1 tablet by mouth Every 6 (Six) Hours As Needed. 01/19 IBUPROFEN QIE qieuser ENTRESTO 24-26 MG TABS TAKE ONE TABLET BY MOUTH TWICE DAILY 01/19 sacubitril-valsa rtan 51326216460 QIE qieuser GLYXAMBI 10-5 MG TABS Take 1 tablet by mouth Daily. 01/19 empagliflozin-li nagliptin 18507025397 QIE qieuser FARXIGA 10 MG TABS Take 10 mg by mouth Daily. 01/19 dapagliflozin propanediol 26548130302 QIE qieuser BUMETANIDE 2 MG TABS TAKE ONE TABLET BY MOUTH TWICE DAILY 01/19 bumetanide 74642172216 QIE qieuser ADVAIR DISKUS 250-50 MCG/ACT AEPB Inhale 1 puff 2 (Two) Times a Day. 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
--- OUTSIDE RECORDS SUMMARY | 2025-07-29 10:51 | XMS_ITS | Clinical Summary ---
Author Organization [facility] Address [address] [place] [address] Phone Care Team Providers Care Airline Radio Operator Name Role Phone Unavailable Primary Care Provider [...] Info) Description 08/09/2025 3:00 PM EDT Appointment [address] [place] [address] Bradley Gonzales MD [address] [place] [address] Health Maintenance Due Date Last Done [...] patient's age to complete this topic Insurance [facility] [place] [address]
--- OUTSIDE RECORDS SUMMARY | 2025-07-29 10:51 | XMS_ITS | Encounter Summary ---
Author Organization [facility] Address [address] [place] [address] Care Team Providers Care Social Organization Professor Name Role Phone Juarez Griffin MD Primary Care Provider [phone] Karen Naqvi DO Unavailable [phone] Encounter Details Date Type Department Care Team ([facility] st Contact Info) Description 02/12/2024 Orders Only External Location [address] [place] [address] Gennaro Cuevas MD [facility] [address] [place] [address] Social History Tobacco Use Types Packs/Day Years [...] Comment:+ 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 [facility] This patient will require contact precautions indefinitely. 04/01/2024 documented as of this encounter Care Teams Social Organization Professor Relationship Specialty Start Date End Date Juarez Griffin MD [address] [place] [address] PCP - General 03/10/21 Karen Naqvi DO [facility] [address] [place] [address] Referring Physician Obstetrics and Gynecology 09/23/24 documented as of this encounter
--- OUTSIDE RECORDS SUMMARY | 2025-07-29 10:51 | XMS_ITS | Encounter Summary ---
[facility] Address [address] [place] [id number] Care Team Providers Care Safety Director Name Role Phone Juarez Griffin MD Primary Care Provider [phone] Encounter Details Date Type Department Care Team (Late st Contact Info) Description 04/16/2024 Retail Pharmacy Consultation [facility] [address] [place] [address] [facility] [address] [place], [place] [address] Social History Tobacco Use Types Packs/Day Years Used Date Smoking Tobacco: Never Passive Smoke Exposure: Never Smokeless Tobacco: Never Alcohol Use Standard Drinks/Week Comments Yes 0 (1 standard drink = 0.6 oz pur e alcohol) rarely C Utilities Answer Date Recorded In the past 12 months has [employer], gas, oil, or water [employer] threatened to shut off services in your [...] and heating? Not hard at all 04/16/2024 [facility] [place] of Occupat ional Health - Occupational Stress [...] GED or equivalent No 04/16/2024 Preferred Language Korean 04/16/2024 PHQ-2 Answer Date Recorded Retired PHQ-9: [...] Description 11/01/2025 1:30 PM EST Office Visit [facility] C[facility]IOLOG[facility] [address] [phone] Yaneth Ugarte MD [address] [address] documented as of this encounter Visit Diagnoses Not on filedocumented in this encounter Additional Health Concerns Infection Onset Date Last Indicated Resolved Time ESBL 04/01/2024 04/01/2024 03/03/2025 6:4 8 AM EDT documented as of this encounter Care Teams Safety Director Relationship Specialty Start Date End Date Juarez Griffin MD [address] [facility] [address] [place] [address] PCP - General Internal Medicine 05/30/23 documented as of this encounter
--- OUTSIDE RECORDS SUMMARY | 2025-07-29 10:51 | XMS_ITS | Encounter Summary ---
[facility] Organization [facility] Address [address] [place] [address] Care Team Providers Care Bus Mechanic Name Role Phone Juarez Griffin MD Primary Care Provider Encounter Details Date Type Department Care Team (Late st Contact Info) Description 05/10/2025 Results Follow-Up [facility] CARDIOLOGY [address] [place] [address] Yaneth Ugarte MD [address] [place], [place] [id number] Social History Tobacco Use Types Packs/Day Years Used Date Smoking Tobacco: Never Passive Smoke Exposure: Never Smokeless Tobacco: Never Alcohol Use Standard Drinks/Week Comments Not Currently 0 (1 standard drink = 0.6 oz pur e alcohol) Maybe 3 drinks annually [facility] Utilities Answer Date Recorded In the past 12 months has [employer], gas, oil, or water [employer] threatened to shut off services in your [...] and heating? Not hard at all 04/16/2024 [place] of Occupat ional Health - Occupational Stress [...] 05/2025 Potentially Unsafe Housing Conditions Not on lanodn e 03/04/2025 Family and Community Support Answer [...] or training? Not on file Preferred Language Kinyarwanda 02/25/2025 PHQ-2 Answer Date Recorded Retired PHQ-9: [...] Description 11/01/2025 1:30 PM EST Office Visit [facility] C[facility]IOLOG[facility] [address] [address] Yaneth Ugarte MD [address] [address] documented as of this encounter Visit Diagnoses Not on filedocumented in this encounter Care Teams Bus Mechanic Relationship Specialty Start Date End Date Juarez Griffin MD [facility] [address] [place] [address] PCP - General Internal Medicine 05/30/23 documented as of this encounter
--- OUTSIDE RECORDS SUMMARY | 2025-07-29 10:51 | XMS_ITS | Clinical Summary ---
Author Organization [facility] Address [address] [place] [phone] Care Team Providers Care Section Maintainer Name Role Phone Juarez Griffin MD Primary Care Provider [phone] Allergies Active Allergy Reactions Criticality Noted Date [...] ns:Nephrolithi asis,Recurrent UTI Call 911. Don't prime. [place] in 1 nostril for overdose. Repeat in [...] Type Department Care Team Description 07/01/2025 Refill [facility] CARDIOLOG[facility] [address] [place] [address] Yaneth Ugarte MD Med Refill 05/11/2025 Telephone [facility] [address] [place] [address] [place] [address] EbonyShell felipeHoldened Rep 05/10/2025 Results Follow-Up [facility] C[facility] [address] [place], [place] [address] [address] Yaneth Ugarte MD 05/03/2025 1:30 PM EDT Office Visit [facility] [address] [address] Yaneth Ugarte MD Hypercholesterolemia (Primary Dx); PVC (premature ventricular contraction); Precordial chest pain; Swelling of lower extremity 05/03/2025 Patient rounding ([facility] only) [facility] [address] [address] Yaneth Ugarte MD 05/03/2025 Travel 04/29/2025 Telephone [facility] C[facility] [address] [place] [address] [...] e alcohol) Maybe 3 drinks annually [facility] Utilities Answer Date Recorded In the past 12 months has [employer], gas, oil, or water [employer] threatened to shut off services in your [...] and heating? Not hard at all 04/16/2024 [facility] [place] of Occupat ional Health - Occupational Stress [...] or training? Not on file Preferred Language Swiss 02/25/2025 PHQ-2 Answer Date Recorded Retired PHQ-9: [...] Description 11/01/2025 1:30 PM EST Office Visit [facility] C[facility] [address] [phone] Yaneth Ugarte MD [address] [place] [address] Health Maintenance Due Date Last Done Comments [...] 03/28, 12/27/2023, Additional history exists INFLUENZA VACCINE 05/28/2025 08/05/2024, , 08/28/2023, Additional history exists LIPID PANEL 05/07/2026 05/07/2025 ZOSTER VACCINE Completed 10/30/2023, 05/27/2023 HEPATITIS C SCREENING Completed 04/10/2024 Medical Devices Implanted Type Area Wheel Alignment Technician Device Identifier Shelf Expiration Date Model / Serial / Lot Kt Seal Hemos Abs Floseal Matrx Fast/Prep 5ml - [id number] Implanted:Qty : 1 on 04/15/2024 by Demarcus Ames MD at [facility] Implant Right: Kidney [employer] 05/29/2025 [id number] / / [id number] Clip Ligat Vasc Horizon Steve Caldera Daniel 6ct - [id number] Implanted:Qty : 2 on 03/04/2025 by Zac Mckeon MD at [facility] Implant N/A: Neck [employer] [id number] / / Clip Ligat Vasc Horizon Ti Sm Yel 6ct - [id number] Implanted:Qty : 4 on 03/04/2025 by Zac Mckeon MD at [facility] Implant N/A: Neck [employer] [id number] / / Hemost Abs Surgicel Orig 4x8in Strl - [id number] Implanted:Qty : 1 on 03/04/2025 by Zac Mckeon MD at [facility] Implant N/A: Neck [employer] J [employer] J [id number] / / Kt Seal Hemos Abs Floseal Matrx 1.5/Fast/Prep 5000/Iu 5ml - [id number] Implanted:Qty : 1 on 03/31/2025 by Demarcus Ames MD at [facility] Implant Left: Back [employer] 08/13/2026 [id number] / / [id number] Stnt Percuflx No Gw 7x26 - [id number] Implanted:Qty : 1 on 04/15/2024 by Demarcus Ames MD at [facility] Stent Right: Kidney [employer] 09/06/2026 [id number] / / [id number] Stnt Percuflx No Gw 7x26 - [id number] Implanted:Qty : 1 on 03/31/2025 by Demarcus Ames MD at [facility] Stent Left: Back [employer] 08/10/2027 [id number] / / [id number] Procedures Procedure Name Priority Date/Time Associated Diagnosis Comments COMPREHENSIVE METABOLIC PANEL Routine 05/07/2025 Hypercholesterolemi a PVC (premature ventricular contraction) LIPID PANEL Routine 05/07/2025 Hypercholesterolemi a PVC (premature ventricular contraction) MAGNESIUM Routine 05/07/2025 Hypercholesterolemi a PVC (premature ventricular contraction) TSH RFX ON ABNORMAL TO FREE T4 Routine 05/07/2025 Hypercholesterolemi a PVC (premature ventricular contraction) ECG 12-LEAD Routine 05/03/2025 2:22 PM EDT Precordial chest pain from Last 3 Months Results * TSH Rfx On Abnormal To Free T4 (05/07/2025) Blood us Yaneth Ugarte MD LAB BLOOD ORDERABLES Final R esult Performing Organization Address [facility]/ZIP Co de Phone Number [facility]
[address] [place] [address], [place] [phone] * Magnesium (05/07/2025) Blood us Yaneth Ugarte MD LAB BLOOD ORDERABLES Final R esult [facility]
[address] [place] [address], [place] [phone] * Lipid Panel (05/07/2025) Blood Yaneth Ugarte MD LAB BLOOD ORDERABLES Final R esult Performing Organization Address [facility] Co de Phone Number [facility]
[address] [place] [address], * Comprehensive Metabolic Panel (05/07/2025) Blood Yaneth Ugarte MD LAB BLOOD ORDERABLES Final R esult Performing Organization Address [facility] Co de Phone Number [facility]
[address] [place] [id number], * ECG 12-LEAD (05/03/2025 2:22 PM EDT) [...] Chronic chest pain followed by Dr. Ugarte [facility] 03/05/24 Chronic diastolic (congestive) heart failure [...] WITH STENT EXCHANGE;Surgeon: Demarcus Ames MD; Location: [facility]; Service:Urology; Laterality: Right; PERCUTANEOUS NEPHROSTOLITHOTOMY Left 03/31/2025 Procedure: Percutaneous nephrolithotomy with stent placement left,cystoscopy; Surgeon: Demarcus Ames MD; Location: [facility];Service: Urology; Laterality: Left; TUBAL ABDOMINAL [...] index is 48.86 kg/m as calculated from the [facility]: Height as of this encounter: 160.7 cm [...] file. Laura Ugarte MD Cardiology and Sleep [facility] 05/03/2025 Please note that this explicitly excludes time spent on other separatebillable services such as performing procedures or test interpretation,when applicable. This note was created using dictation software which occasionallytranscribes nonsensical phrases. Please contact the provider if anyclarification is needed. us Yaneth Ugarte MD ECG ORDERABLES Final Result from Last 3 Months Insurance [facility] Care Teams Section Maintainer Relationship Specialty Start Date End Date Juarez Griffin MD [address] [facility] [address] [place] [address] PCP - General Internal Medicine 05/30/23
--- OUTSIDE RECORDS SUMMARY | 2025-07-29 10:51 | XMS_ITS | Encounter Summary ---
[facility] Organization [facility] Address [address] [place] [address] Care Team Providers Care Tube Molder Fiberglass Name Role Phone Juarez Griffin MD Primary Care Provider [phone] Encounter Details Date Type Department Care Team (Late st Contact Info) Description 05/11/2025 Telephone [facility] CARDIOLOGY [address] [place] [address] Shell Diaz RegSched Rep Social History Tobacco Use Types Packs/Day Years Used Date Smoking Tobacco: Never Passive Smoke Exposure: Never Smokeless Tobacco: Never Alcohol Use Standard Drinks/Week Comments Not Currently 0 (1 standard drink = 0.6 oz pur e alcohol) Maybe 3 drinks annually [facility] Utilities Answer Date Recorded In the past 12 months has [employer], gas, oil, or water company threatened [...] hard at all 04/16/2024 [facility] [place] of Occupat ional Health - Occupational Stress [...] Description 11/01/2025 1:30 PM EST Office Visit [facility] C[facility] [address] [place] [phone] Yaneth Ugarte MD [address] [place] [address] documented as of this encounter Visit Diagnoses Not on filedocumented in this encounter Care Teams Tube Molder Fiberglass Relationship Specialty Start Date End Date Juarez Griffin MD [address] [facility] [address] [place] [address] PCP - General Internal Medicine 05/30/23 documented as of this encounter
== END 2025-07-28 23:59 ==
LOC: LAB.DROPOF 07-29 10:44
PROVIDERS: PCP Internal Medicine; Visit Provider Internal Medicine
DX: R10.30 Lower abdominal pain, unspecified (principal); R11.0 Nausea; K76.0 Fatty (change of) liver, not elsewhere classified; E11.9 Type 2 diabetes mellitus without complications
CPT/HCPCS: 80053; 85025

== ENCOUNTER 2025-07-29 11:24 | Outpatient (CLI) | payer OTHER, SELFPAY ==
--- OUTSIDE RECORDS SUMMARY | 2025-07-29 11:27 | XMS_ITS | Encounter Summary ---
Author Organization [facility] Address [address] [place] [address] Care Team Providers Care Solder Making Supervisor Name Role Phone Juarez Griffin MD Primary Care Provider [phone] Karen Naqvi DO Unavailable [phone] Encounter Details Date Type Department Care Team ([facility] st Contact Info) Description 02/12/2024 Orders Only External Location [address] [place] [address] Gennaro Cuevas MD [facility] [address] [place] [address] Social History Tobacco Use Types Packs/Day Years [...] Comment:+ 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 Source: [facility]. This patient will require contact precautions indefinitely. 04/01/2024 documented as of this encounter Care Teams Solder Making Supervisor Relationship Specialty Start Date End Date Juarez Griffin MD [address] [place] [address] PCP - General 03/10/21 Karen Naqvi DO [facility] [address] [place] [address] Referring Physician Obstetrics and Gynecology 09/23/24 documented as of this encounter
--- OUTSIDE RECORDS SUMMARY | 2025-07-29 11:27 | XMS_ITS | Encounter Summary ---
[facility] Address [address] [place] [address] Care Team Providers Care Real Estate Operations Manager Name Role Phone Juarez Griffin MD Primary Care Provider [phone] Encounter Details Date Type Department Care Team (Late st Contact Info) Description 05/10/2025 Results Follow-Up [facility] [address] [place] [address] Yaneth Ugarte MD [address] [place], [place] [id number] Social History Tobacco Use Types Packs/Day Years Used Date Smoking Tobacco: Never Passive Smoke Exposure: Never Smokeless Tobacco: Never Alcohol Use Standard Drinks/Week Comments Not Currently 0 (1 standard drink = 0.6 oz pur e alcohol) Maybe 3 drinks annually [facility] Utilities Answer Date Recorded In the past 12 months has [employer], gas, oil, or water [employer] threatened to shut off services in your [...] and heating? Not hard at all 04/16/2024 [place] of Occupat ional Health - Occupational Stress [...] or training? Not on file Preferred Language Japanese 02/25/2025 PHQ-2 Answer Date Recorded Retired PHQ-9: [...] 1:30 PM EST Office Visit [facility] [address] [place] [place] [address] Yaneth Ugarte MD [address] [place] [place] [address] documented as of this encounter Visit Diagnoses Not on filedocumented in this encounter Care Teams Real Estate Operations Manager Relationship Specialty Start Date End Date Juarez Griffin MD [address] [facility] [address] [place] [address] PCP - General Internal Medicine 05/30/23 documented as of this encounter
--- OUTSIDE RECORDS SUMMARY | 2025-07-29 11:27 | XMS_ITS | Encounter Summary ---
[facility] Address [address] [place] [id number] Care Team Providers Care Dry Talc Racker Name Role Phone Juarez Griffin MD Primary Care Provider [phone] Encounter Details Date Type Department Care Team (Late st Contact Info) Description 04/16/2024 Retail Pharmacy Consultation [facility] [address] [place] [address] [facility] [address] [place], [place] [id number] Social History Tobacco Use Types Packs/Day Years Used Date Smoking Tobacco: Never Passive Smoke Exposure: Never Smokeless Tobacco: Never Alcohol Use Standard Drinks/Week Comments Yes 0 (1 standard drink = 0.6 oz pur e alcohol) rarely C Utilities Answer Date Recorded In the past 12 months has [employer], gas, oil, or water [employer] threatened to shut off services in your [...] and heating? Not hard at all 04/16/2024 [facility] [place] of Occupat ional Health - Occupational Stress [...] GED or equivalent No 04/16/2024 Preferred Language Croatian 04/16/2024 PHQ-2 Answer Date Recorded Retired PHQ-9: [...] Description 11/01/2025 1:30 PM EST Office Visit [facility] [address] [place] [phone] Yaneth Ugarte MD [address] [address] documented as of this encounter Visit Diagnoses Not on filedocumented in this encounter Additional Health Concerns Infection Onset Date Last Indicated Resolved Time ESBL 04/01/2024 04/01/2024 03/03/2025 6:4 8 AM EDT documented as of this encounter Care Teams Dry Talc Racker Relationship Specialty Start Date End Date Juarez Griffin MD [address] [facility] [address] [place] [address] PCP - General Internal Medicine 05/30/23 documented as of this encounter
--- OUTSIDE RECORDS SUMMARY | 2025-07-29 11:27 | XMS_ITS | Encounter Summary ---
[facility] Address [address] [place] [address] Care Team Providers Care Brake Lining Curer Name Role Phone Juarez Griffin MD Primary Care Provider [phone] Encounter Details Date Type Department Care Team (Late st Contact Info) Description 04/20/2024 Telephone [facility] [address] [place] [address] Demarcus Ames MD [address] [facility] [address] [place] [address] Social History Tobacco Use Types Packs/Day Years Used Date Smoking Tobacco: Never Passive Smoke Exposure: Never Smokeless Tobacco: Never Alcohol Use Standard Drinks/Week Comments Yes 0 (1 standard drink = 0.6 oz pur e alcohol) rarely [facility] Utilities Answer Date Recorded In the past 12 months has [employer] gas, oil, or water [employer] threatened to shut off services in your [...] and heating? Not hard at all 04/16/2024 [place] of Occupat ional Health - Occupational Stress [...] GED or equivalent No 04/16/2024 Preferred Language Malian 04/16/2024 PHQ-2 Answer Date Recorded Retired PHQ-9: [...] Description 11/01/2025 1:30 PM EST Office Visit [facility] [address] [place] [phone] Yaneth Ugarte MD [address] [place] [address] documented as of this encounter Visit Diagnoses Not on filedocumented in this encounter Additional Health Concerns Infection Onset Date Last Indicated Resolved Time ESBL 04/01/2024 04/01/2024 03/03/2025 6:48 AM EDT documented as of this encounter Care Teams Brake Lining Curer Relationship Specialty Start Date End Date Juarez Griffin MD [address] [facility] [address] [place] [address] PCP - General Internal Medicine 05/30/23 documented as of this encounter
--- OUTSIDE RECORDS SUMMARY | 2025-07-29 11:27 | XMS_ITS | Clinical Summary ---
Author Organization [facility] Address [address] [place] [address] Phone Care Team Providers Care Fringe Knotter Name Role Phone Unavailable Primary Care Provider [...] Info) Description 08/09/2025 3:00 PM EDT Appointment [address] [place] [address] Bradley Gonzales MD [address] [place] [address] Health Maintenance Due Date Last Done [...] patient's age to complete this topic Insurance [facility] [place] [address]
--- OUTSIDE RECORDS SUMMARY | 2025-07-29 11:27 | XMS_ITS | Encounter Summary ---
[facility] Address [address] [place] [address] Care Team Providers Care Pen Tester Name Role Phone Juarez Griffin MD Primary Care Provider [phone] Encounter Details Date Type Department Care Team (Late st Contact Info) Description 05/11/2025 Telephone [facility] [address] [place] [address] Shell Diaz RegSched Rep Social History Tobacco Use Types Packs/Day Years Used Date Smoking Tobacco: Never Passive Smoke Exposure: Never Smokeless Tobacco: Never Alcohol Use Standard Drinks/Week Comments Not Currently 0 (1 standard drink = 0.6 oz pur e alcohol) Maybe 3 drinks annually [facility] Utilities Answer Date Recorded In the past 12 months has [employer], gas, oil, or water company threatened [...] heating? Not hard at all 04/16/2024 [facility] [place] of Occupat ional Health - Occupational Stress [...] or training? Not on file Preferred Language Yakut 02/25/2025 PHQ-2 Answer Date Recorded Retired PHQ-9: [...] Description 11/01/2025 1:30 PM EST Office Visit [facility] [address] [place] [phone] Yaneth Ugarte MD [address] [place] [address] documented as of this encounter Visit Diagnoses Not on filedocumented in this encounter Care Teams Pen Tester Relationship Specialty Start Date End Date Juarez Griffin MD [address] [facility] [address] [place] [address] PCP - General Internal Medicine 05/30/23 documented as of this encounter
--- OUTSIDE RECORDS SUMMARY | 2025-07-29 11:27 | XMS_ITS | Clinical Summary ---
Author Organization [facility] Address [address] [facility] [address] [place] [address] Phone Care Team Providers Care Manager Report Name Role Phone Zofia Perkins Unavailable Unavailable Conditions or Problems Problem Name Problem Code Onset Date Status Entry Date Provider Comment Standard Description Annotate Acute Pyelonephritis 81382468 (SNOMED CT) 01/07 Active 01/07 Malina Ames Acute pyelonephritis Obstructive uropathy with infection N13.6 (ICD-10-C M) 01/07 Active 01/07 Malina Ames Pyonephrosis Neutrophilic leukemoid reaction D72.823 (ICD-10-C M) 01/07 Active 01/07 Malina Ames Leukemoid reaction COPD 59438333 (SNOMED CT) 01/07 Active 01/07 Malina Ames Chronic obstructive pulmonary disease Morbid obesity due to excess calories E66.01 (ICD-10-C M) 01/07 Active 01/07 Malina Ames Morbid (severe) obesity due to excess calories DM Type II E11.9 (ICD-10-C M) 01/07 Active 01/07 Malina Ames Type 2 diabetes mellitus without complications Benign hypertensive heart disease with chronic diastolic heart failure (I50.32) 79338235 (SNOMED CT) 01/07 Active 01/07 Malina Ames Benign hypertension Medications Medication Instructions Start Date Stop Date Generic Name [facility] Provider FOSFOMYCIN TROMETHAMINE 3 GM PACK Take 1 packet by mouth as directed take 1 packet every 3-4 days (2 times weekly) fosfomycin tromethamine 44511819924 Calvin Villarreal MD PREDNISONE 20 MG TABS prednisone 49378789029 Milly Jabierbrianne VITAMIN C 500 MG CAPS twice a day ascorbic acid (vitamin c) 44456279779 Milly Mosquera HIPREX 1 GM TABS Take 1 tablet by mouth twice a day 02/18 methenamine hippurate 56027008508 Calvin Villarreal MD INDOMETHACIN 50 MG CAPS Take 1 capsule by mouth three times a day indomethacin 55618870518 Linda De Leon SUCRALFATE 1 GM TABS Take 1 tablet by mouth four times a day sucralfate 11358587610 Linda De Leon BUMETANIDE 2 MG TABS Take 1 tablet by mouth twice a day bumetanide 14543434834 Linda De Leon PRAVASTATIN SODIUM 10 MG TABS Take 1 tablet by mouth every night pravastatin 75149966931 Linda De Leon ENTRESTO 24-26 MG TABS Take 1 tablet by mouth twice a day sacubitril-valsa rtan 20552313033 Linda De Leon VENTOLIN HFA 108 (90 Base) MCG/ACT AERS Inhale 2 puff by mouth every four to six hours as needed albuterol sulfate 90297396470 Linda De Leon ADVAIR DISKUS 250-50 MCG/ACT AEPB Inhale 1 puff twice a day fluticasone propion-salmeter ol 65402049685 Linda De Leon OMEPRAZOLE 20 MG CPDR Take 1 capsule by mouth once a day omeprazole 72634621769 Linda De Leon METFORMIN HCL 500 MG TABS Take 1 tablet by mouth twice a day metformin 45114234103 Linda De Leon FARXIGA 10 MG TABS Take 10 mg by mouth once a day dapagliflozin propanediol 33094279201 Linda De Leon IBUPROFEN (IBUPROFEN) 800 MG TABS Take 1 tablet by mouth every six hours as needed IBUPROFEN Linda De Leon TIZANIDINE HCL 4 MG TABS Take 1 tablet by mouth as needed tizanidine 85362391026 Linda De Leon TRAMADOL HCL 50 MG TABS every twelve hours tramadol 13297834840 Linda De Leon NITROGLYCERIN 0.[address] 1 tablet under tongue as needed nitroglycerin 33206305493 Linda Moises ONDANSETRON HCL 4 MG TABS Take 1 tablet by mouth every eight hours as needed ondansetron hcl 85915027624 Linda Moises SPIRONOLACTONE 50 MG TABS Take 1 tablet by mouth once a day spironolactone 71103680154 Linda De Leon SITagliptin (JANUVIA) 25 MG tablet Take 1 tablet by mouth once a day JANOLIVER De Leon NEBIVOLOL HCL 5 MG TABS Take 1 tablet by mouth once a day nebivolol 41534581249 Jazieltyree De Leon GLYXAMBI 10-5 MG TABS Take 1 tablet by mouth once a day empagliflozin-li nagliptin 15811973912 Linda De Leon VENTOLIN HFA 108 (90 Base) MCG/ACT AERS INHALE TWO PUFFS BY MOUTH EVERY 4 TO 6 HOURS NEEDED 01/19 albuterol sulfate 31807628935 QIE qieuser TRAMADOL HCL 50 MG TABS Every 12 (Twelve) Hours. 01/19 tramadol 39200753740 QIE qieuser TIZANIDINE HCL 4 MG TABS Take 1 tablet by mouth As Needed. 01/19 tizanidine 54861864562 QIE qieuser SUCRALFATE 1 GM TABS Take 1 tablet by mouth 4 (Four) Times a Day. 01/19 sucralfate 16041580686 QIE qieuser SPIRONOLACTONE 50 MG TABS TAKE ONE TABLET BY MOUTH EVERY DAY 01/19 spironolactone 09974964052 QIE qieuser SITagliptin (JANUVIA) 25 MG tablet Take 1 tablet by mouth Daily. 01/19 JANUVIA QIE qieuser PRAVASTATIN SODIUM 10 MG TABS TAKE ONE TABLET BY MOUTH EVERY DAY AT BEDTIME 01/19 pravastatin 44805296823 QIE qieuser ONDANSETRON HCL 4 MG TABS Take 1 tablet by mouth Every 8 (Eight) Hours As Needed. 04/27 ondansetron hcl 94181711358 QIE qieuser OMEPRAZOLE 20 MG CPDR TAKE ONE CAPSULE BY MOUTH EVERY DAY 04/27 omeprazole 45218429299 QIE qieuser O2 (OXYGEN) 2 L by Alternating Nares route Every Night. OXYGEN QIE qieuser NITROGLYCERIN 0.[address] 1 tablet under the tongue As Needed for Chest Pain. 01/19 nitroglycerin 23898594328 QIE qieuser NEBIVOLOL HCL 5 MG TABS TAKE ONE TABLET BY MOUTH EVERY DAY 01/19 nebivolol 18136081970 QIE qieuser METFORMIN HCL 500 MG TABS Take 1 tablet by mouth 2 (Two) Times a Day. 01/19 metformin 24913620789 QIE qieuser IPRATROPIUM-ALBUT MIK 0.5-2.5 (3) MG/3ML SOLN ipratropium-albu terol 33850422269 QIE qieuser INDOMETHACIN 50 MG CAPS Take 1 capsule by mouth 3 (Three) Times a Day With Meals. 01/19 indomethacin 81003555742 QIE qieuser IBUPROFEN (IBUPROFEN) 800 MG TABS Take 1 tablet by mouth Every 6 (Six) Hours As Needed. 01/19 IBUPROFEN QIE qieuser ENTRESTO 24-26 MG TABS TAKE ONE TABLET BY MOUTH TWICE DAILY 01/19 sacubitril-valsa rtan 12246052416 QIE qieuser GLYXAMBI 10-5 MG TABS Take 1 tablet by mouth Daily. 01/19 empagliflozin-li nagliptin 24276123111 QIE qieuser FARXIGA 10 MG TABS Take 10 mg by mouth Daily. 01/19 dapagliflozin propanediol 51146457711 QIE qieuser BUMETANIDE 2 MG TABS TAKE ONE TABLET BY MOUTH TWICE DAILY 01/19 bumetanide 48837981762 QIE qieuser ADVAIR DISKUS 250-50 MCG/ACT AEPB Inhale 1 puff 2 (Two) Times a Day. 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
--- OUTSIDE RECORDS SUMMARY | 2025-07-29 11:27 | XMS_ITS | Clinical Summary ---
Author Organization [facility] Address [address] [place] [address] Care Team Providers Care Transmission Rebuilder Name Role Phone Juarez Griffin MD Primary Care Provider [phone] Karen Naqvi DO Unavailable [phone] Allergies Active Allergy Reactions Criticality Noted Date [...] Medical History Relation Name Comments Diabetes Father Jackson Heart disease Father Jackson Hypertension Father Jackson Dementia Mother Marzena Hypertension Mother Marzena Cancer Mother's Brother Lino Heart disease Mother's Brother Lino Diabetes insipidus Other 1 Hypertension Other 2 Lupus Other 3 Cancer Paternal Grandfather Unknown Anesthesia problems Sister Marta Diabetes Sister Marta Heart disease Sister Marta Hypertension Sister Marta Relation Name Status Comments Father Jackson Mother Marzena Mother's Brother Lino Other 1 [...] drink first t yue in the morning (EYE-PIPE FINISHING SUPERVISOR) to steady your nerves or to [...] Screening 2023 [facility]-Diabetes: Hemoglobin A1C 10/08/2024 04/10/2024 [id number] Vaccine ( season) 2025 10/07/2022, 08/21/2021 [facility]-Influenza [...] this topic Medical Devices Implanted Type Area Technical Services Manager Device Identifier Shelf Expiration Date Model / Serial / Lot Stent Ureteral Double Pigtail Pos 6fr 24cm - [id number] - [id number] Implanted:Qty: 1 on 04/11/2024 by Hravey Macdonald MD at [facility] Stent Right: Ureter [id number] 01/02/2026 [id number] / [id number] / [id number] Recorder-2016 Implanted:04/28 (Quantity not on file) [...] Reactive Non Reactive 04/10/2024 7:25 PM EDT [facility] Comment:Screening for HIV 1 & 2 antibodies, and P24 antigen is NONREACTIVE. No confirmatory testing is required. Blood Venous blood specimen / Unknown Venipuncture / Unknown 04/10/2024 6:11 PM EDT 04/10/2024 6:27 PM EDT Susan Mcclure MD LAB BLOOD ORDERABLES Final Re sult [facility] [address] [place] [address] * Hepatitis C Antibody - ED (04/10/2024 6:11 PM EDT) Hepatitis C Antibody Negative Negative 04/10/2024 7:24 PM EDT HEALTHCARE LAB Blood Venous blood specimen / Unknown Venipuncture / Unknown 04/10/2024 6:11 PM EDT 04/10/2024 6:26 PM EDT us Susan Mcclure MD LAB BLOOD ORDERABLES Final Re sult Performing Organization Address City/[facility]/ZIP Co de Phone Number [facility] [address] [place] [address] * (ABNORMAL) Hemoglobin A1c (04/10/2024 6:11 PM [...] Adults <6.0% Children and Adolescents <7.5% Source: [place] [employer]. Standards of medical care in diabetes,2017. Diabetes Care.2017:40 (suppl 1):S1-S135. HbA1c assay performed by an ion-exchange chromatography method that is certified traceable to the DCCT. Joselito Berrios MD LAB BLOOD ORDERABLES Final Re sult Performing Organization Address City/[facility]/ZIP Co de Phone Number [facility] [address] [place] [address] from Last 3 Months or Most Recently Relevant to Health Maintenance Additional Health Concerns Infection Onset Date Last Indicated ESBL Comment:+ 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 Source: [facility]. This patient will require contact precautions indefinitely. 04/01/2024 Insurance [employer] [facility] MEDICAID Advance Directives * Full Code (Latest Code Status on File) Date Activated Date Inactivated Comments 04/11/2024 10:12 AM 04/12/2024 3:22 PM Question Answer Comments Patient has decision-making capacity? Yes Care Teams Transmission Rebuilder Relationship Specialty Start Date End Date Juarez Griffin MD [address] [place] [address] PCP - General 03/10/21 Karen Naqvi DO [address] [place] [address] Referring Physician Obstetrics and Gynecology 09/23/24
--- OUTSIDE RECORDS SUMMARY | 2025-07-29 11:27 | XMS_ITS | Clinical Summary ---
Author Organization [facility] Address [address] [place] [id number] Care Team Providers Care Pan Washer Name Role Phone Juarez Griffin MD Primary Care Provider [phone] Allergies Active Allergy Reactions Criticality Noted Date [...] ns:Nephrolithi asis,Recurrent UTI Call 911. Don't prime. Bend in 1 nostril for overdose. Repeat in [...] Type Department Care Team Description 07/01/2025 Refill [facility] [address] [place] [address] Yaneth Ugarte MD Med Refill 05/11/2025 Telephone [facility] [address] [place] [address] [place] [address] EbonyShell felipeHoldened Rep 05/10/2025 Results Follow-Up [facility] [address] [place], [place] [address] [address] Yaneth Ugarte MD 05/03/2025 1:30 PM EDT Office Visit [facility] [address] [address] Yaneth Ugarte MD Hypercholesterolemia (Primary Dx); PVC (premature ventricular contraction); Precordial chest pain; Swelling of lower extremity 05/03/2025 Patient rounding ([facility]) [facility] [address] [address] Yaneth Ugarte MD 05/03/2025 Travel 04/29/2025 Telephone [facility] [address] [place] [address] [...] Marta Liver disease Sister Marta Obesity Sister Mrata Thyroid disease Sister Marta Relation Name Status [...] pur e alcohol) Maybe 3 drinks annually [facility] Utilities Answer Date Recorded In the past 12 months has [employer] electric, gas, oil, or water [employer] ([employer] threatened to shut off services in your [...] hard at all 04/16/2024 [facility] [place] of Occupat ional Health - Occupational Stress [...] or training? Not on file Preferred Language Dutch 02/25/2025 PHQ-2 Answer Date Recorded Retired PHQ-9: [...] Description 11/01/2025 1:30 PM EST Office Visit [facility] [address] [phone] Yaneth Ugarte MD [address] [place] [address] Health Maintenance Due Date Last Done Comments [...] Completed 04/10/2024 Medical Devices Implanted Type Area Resin Shaver Device Identifier Shelf Expiration Date Model / Serial / Lot Kt Seal Hemos Abs Floseal Matrx Fast/Prep 5ml - [id number] Implanted:Qty : 1 on 04/15/2024 by Demarcus Ames MD at [facility] Implant Right: Kidney [employer] 05/29/2025 [id number] / / [id number] Clip Ligat Vasc Horizon Steve Caldera Daniel 6ct - [id number] Implanted:Qty : 2 on 03/04/2025 by Zac Mckeon MD at [facility] Implant N/A: Neck [employer] [id number] / / Clip Ligat Vasc Horizon Ti Sm Yel 6ct - [id number] Implanted:Qty : 4 on 03/04/2025 by Zac Mckeon MD at [facility] Implant N/A: Neck [employer] [id number] / / Hemost Abs Surgicel Orig 4x8in Strl - [id number] Implanted:Qty : 1 on 03/04/2025 by Zac Mckeon MD at [facility] Implant N/A: Neck [employer] J [id number] / / Kt Seal Hemos Abs Floseal Matrx 1.5/Fast/Prep 5000/Iu 5ml - [id number] Implanted:Qty : 1 on 03/31/2025 by Demarcus Ames MD at [facility] Implant Left: Back [employer] 08/13/2026 [id number] / / [id number] Stnt Percuflx No Gw 7x26 - [id number] Implanted:Qty : 1 on 04/15/2024 by Demarcus Ames MD at [facility] Stent Right: Kidney [employer] 09/06/2026 [id number] / / [id number] Stnt Percuflx No Gw 7x26 - [id number] Implanted:Qty : 1 on 03/31/2025 by Demarcus Ames MD at [facility] Stent Left: Back [employer] 08/10/2027 [id number] / / [id number] Procedures Procedure Name Priority Date/Time Associated Diagnosis [...] ORDERABLES Final R esult Performing Organization Address [facility]/ZIP Co de Phone Number [facility]
[address] [place] [address], [place] [phone] * Magnesium (05/07/2025) Blood us Yaneth Ugarte MD LAB BLOOD ORDERABLES Final R esult [facility]
[address] [place] [address], [place] [phone] * Lipid Panel (05/07/2025) Blood Yaneth Ugarte MD LAB BLOOD ORDERABLES Final R esult Performing Organization Address [facility] Co de Phone Number [facility]
[address] [place] [address], * Comprehensive Metabolic Panel (05/07/2025) Blood Yaneth Ugarte MD LAB BLOOD ORDERABLES Final R esult Performing Organization Address [facility] Co de Phone Number [facility]
[address] [place] [id number], * ECG 12-LEAD (05/03/2025 2:22 PM EDT) [...] Chronic chest pain followed by [facility]. Ugarte [facility] 03/05/24 Chronic diastolic (congestive) heart [...] index is 48.86 kg/m [facility]: Height as of this encounter: 160.7 cm [...] file. Laura Ugarte MD Cardiology and Sleep [facility] 05/03/2025 Please note that this explicitly excludes time spent on other separatebillable services such as performing procedures or test interpretation,when applicable. This note was created using dictation software which occasionallytranscribes nonsensical phrases. Please contact the provider if anyclarification is needed. us Yaneth Ugarte MD ECG ORDERABLES Final Result from Last 3 Months Insurance [facility] [employer] Care Teams Pan Washer Relationship Specialty Start Date End Date Juarez Griffin MD [address] [facility] [address] [place] [address] PCP - General Internal Medicine 05/30/23
--- OUTSIDE RECORDS SUMMARY | 2025-07-29 11:27 | XMS_ITS | Encounter Summary ---
Author Organization [facility] Address [address] [place] [address] Care Team Providers Care Locomotive Pipe Fitter Name Role Phone Juarez Griffin MD Primary Care Provider [phone] Reason for Visit * Reason Comments Med Refill Encounter Details Date Type Department Care Team (Late st Contact Info) Description 07/01/[address] [facility] CARDIOLOGY [address] [place] [address] Yaneth Ugarte MD [address] [place], [place] [id number] Med Refill Social History Tobacco Use Types Packs/Day Years Used Date Smoking Tobacco: Never Passive Smoke Exposure: Never Smokeless Tobacco: Never Alcohol Use Standard Drinks/Week Comments Not Currently 0 (1 standard drink = 0.6 oz pur e alcohol) Maybe 3 drinks annually [facility] Utilities Answer Date Recorded In the past 12 months has [employer], oil, or water [employer] threatened to shut off services in your [...] and heating? Not hard at all 04/16/2024 [facility] [place] of Occupat ional Health - Occupational Stress [...] Description 11/01/2025 1:30 PM EST Office Visit [facility] C[facility] [address] [place] [phone] Yaneth Ugarte MD [address] [place] [address] documented as of this encounter Visit Diagnoses Not on filedocumented in this encounter Care Teams Locomotive Pipe Fitter Relationship Specialty Start Date End Date Juarez Griffin MD [address] [facility] [address] [place] [address] PCP - General Internal Medicine 05/30/23 documented as of this encounter
== END 2025-07-29 23:59 | disposition home or self-care (01) ==
LOC: LAB 11:24
PROVIDERS: PCP Internal Medicine; Visit Provider Obstetrics & Gynecology
DX: R19.00 Intra-abdominal and pelvic swelling, mass and lump, unspecified site (principal)
CPT/HCPCS: 36415

== ENCOUNTER 2025-08-02 14:37 | Outpatient (CLI) | payer OTHER, SELFPAY ==
--- OUTSIDE RECORDS SUMMARY | 2025-08-02 14:39 | XMS_ITS | Encounter Summary ---
Author Organization [facility] Address [address] [place] [address] Care Team Providers Care Repair Manager Name Role Phone Juarez Griffin MD Primary Care Provider [phone] Encounter Details Date Type Department Care Team (Late st Contact Info) Description 05/10/2025 Results Follow-Up [facility] CARDIOLOGY [address] [place] [address] Yaneth Ugarte MD [address] [place], [place] [address] Social History Tobacco Use Types Packs/Day Years Used Date Smoking Tobacco: Never Passive Smoke Exposure: Never Smokeless Tobacco: Never Alcohol Use Standard Drinks/Week Comments Not Currently 0 (1 standard drink = 0.6 oz pur e alcohol) Maybe 3 drinks annually [facility] Utilities Answer Date Recorded In the past 12 months has [employer], gas, oil, or water [employer] threatened to shut off services in your [...] and heating? Not hard at all 04/16/2024 [facility] [place] of Occupat ional Health - Occupational Stress [...] or training? Not on file Preferred Language Slovenian 02/25/2025 PHQ-2 Answer Date Recorded Retired PHQ-9: [...] on filedocumented in this encounter Care Teams Repair Manager Relationship Specialty Start Date End Date Juarez Griffin MD [address] [facility] [address] [place] [address] PCP - General Internal Medicine 05/30/23 documented as of this encounter
--- OUTSIDE RECORDS SUMMARY | 2025-08-02 14:39 | XMS_ITS | Clinical Summary ---
Author Organization [facility] Address [address] [place] [address] Phone Care Team Providers Care Distillery Laborer Name Role Phone Zofia Perkins Unavailable Unavailable Conditions or Problems Problem Name Problem Code Onset Date Status Entry Date Provider Comment Standard Description Annotate Acute Pyelonephritis 92435993 (SNOMED CT) 01/07 Active 01/07 Malina Ames Acute pyelonephritis Obstructive uropathy with infection N13.6 (ICD-10-C M) 01/07 Active 01/07 Malina Ames Pyonephrosis Neutrophilic leukemoid reaction D72.823 (ICD-10-C M) 01/07 Active 01/07 Malina Ames Leukemoid reaction COPD 00214306 (SNOMED CT) 01/07 Active 01/07 Malina Ames Chronic obstructive pulmonary disease Morbid obesity due to excess calories E66.01 (ICD-10-C M) 01/07 Active 01/07 Malina Ames Morbid (severe) obesity due to excess calories DM Type II E11.9 (ICD-10-C M) 01/07 Active 01/07 Malina Ames Type 2 diabetes mellitus without complications Benign hypertensive heart disease with chronic diastolic heart failure (I50.32) 03533126 (SNOMED CT) 01/07 Active 01/07 Malina Ames Benign hypertension Medications Medication Instructions Start Date Stop Date Generic Name [facility] Provider FOSFOMYCIN TROMETHAMINE 3 GM PACK Take 1 packet by mouth as directed take 1 packet every 3-4 days (2 times weekly) fosfomycin tromethamine 29282393699 Calvin Villarreal MD PREDNISONE 20 MG TABS prednisone 47442336185 Milly Jabierbrianne VITAMIN C 500 MG CAPS twice a day ascorbic acid (vitamin c) 66016885785 Milly Mosquera HIPREX 1 GM TABS Take 1 tablet by mouth twice a day 02/18 methenamine hippurate 80650759913 Calvin Villarreal MD INDOMETHACIN 50 MG CAPS Take 1 capsule by mouth three times a day indomethacin 24390248185 Linda De Leon SUCRALFATE 1 GM TABS Take 1 tablet by mouth four times a day sucralfate 40431240693 Linda De Leon BUMETANIDE 2 MG TABS Take 1 tablet by mouth twice a day bumetanide 45672988318 Linda De Leon PRAVASTATIN SODIUM 10 MG TABS Take 1 tablet by mouth every night pravastatin 92790390169 Linda De Leon ENTRESTO 24-26 MG TABS Take 1 tablet by mouth twice a day sacubitril-valsa rtan 09319695424 Linda De Leon VENTOLIN HFA 108 (90 Base) MCG/ACT AERS Inhale 2 puff by mouth every four to six hours as needed albuterol sulfate 92420325950 Linda De Leon ADVAIR DISKUS 250-50 MCG/ACT AEPB Inhale 1 puff twice a day fluticasone propion-salmeter ol 87019395291 Linda De Leon OMEPRAZOLE 20 MG CPDR Take 1 capsule by mouth once a day omeprazole 30892719501 Linda De Leon METFORMIN HCL 500 MG TABS Take 1 tablet by mouth twice a day metformin 44535386923 Linda De Leon FARXIGA 10 MG TABS Take 10 mg by mouth once a day dapagliflozin propanediol 66636638380 Linda De Leon IBUPROFEN (IBUPROFEN) 800 MG TABS Take 1 tablet by mouth every six hours as needed IBUPROFEN Linda De Leon TIZANIDINE HCL 4 MG TABS Take 1 tablet by mouth as needed tizanidine 00686004994 Linda De Leon TRAMADOL HCL 50 MG TABS every twelve hours tramadol 92859368878 Linda De Leon NITROGLYCERIN 0.[address] 1 tablet under tongue as needed nitroglycerin 81591543985 Linda Moises ONDANSETRON HCL 4 MG TABS Take 1 tablet by mouth every eight hours as needed ondansetron hcl 42839489581 Linda Moises SPIRONOLACTONE 50 MG TABS Take 1 tablet by mouth once a day spironolactone 11626222726 Linda De Leon SITagliptin (JANUVIA) 25 MG tablet Take 1 tablet by mouth once a day JANOLIVER De Leon NEBIVOLOL HCL 5 MG TABS Take 1 tablet by mouth once a day nebivolol 03216270978 Jazieltyree De Leon GLYXAMBI 10-5 MG TABS Take 1 tablet by mouth once a day empagliflozin-li nagliptin 69919753745 Linda De Leon VENTOLIN HFA 108 (90 Base) MCG/ACT AERS INHALE TWO PUFFS BY MOUTH EVERY 4 TO 6 HOURS NEEDED 01/19 albuterol sulfate 73851205933 QIE qieuser TRAMADOL HCL 50 MG TABS Every 12 (Twelve) Hours. 01/19 tramadol 73827423537 QIE qieuser TIZANIDINE HCL 4 MG TABS Take 1 tablet by mouth As Needed. 01/19 tizanidine 31653525570 QIE qieuser SUCRALFATE 1 GM TABS Take 1 tablet by mouth 4 (Four) Times a Day. 01/19 sucralfate 34739304724 QIE qieuser SPIRONOLACTONE 50 MG TABS TAKE ONE TABLET BY MOUTH EVERY DAY 01/19 spironolactone 91142884704 QIE qieuser SITagliptin (JANUVIA) 25 MG tablet Take 1 tablet by mouth Daily. 01/19 JANUVIA QIE qieuser PRAVASTATIN SODIUM 10 MG TABS TAKE ONE TABLET BY MOUTH EVERY DAY AT BEDTIME 01/19 pravastatin 05935968300 QIE qieuser ONDANSETRON HCL 4 MG TABS Take 1 tablet by mouth Every 8 (Eight) Hours As Needed. 04/27 ondansetron hcl 82859647750 QIE qieuser OMEPRAZOLE 20 MG CPDR TAKE ONE CAPSULE BY MOUTH EVERY DAY 04/27 omeprazole 79391063820 QIE qieuser O2 (OXYGEN) 2 L by Alternating Nares route Every Night. OXYGEN QIE qieuser NITROGLYCERIN 0.[address] 1 tablet under the tongue As Needed for Chest Pain. 01/19 nitroglycerin 91920823913 QIE qieuser NEBIVOLOL HCL 5 MG TABS TAKE ONE TABLET BY MOUTH EVERY DAY 01/19 nebivolol 31179080372 QIE qieuser METFORMIN HCL 500 MG TABS Take 1 tablet by mouth 2 (Two) Times a Day. 01/19 metformin 30497567307 QIE qieuser IPRATROPIUM-ALBUT MIK 0.5-2.5 (3) MG/3ML SOLN ipratropium-albu terol 45166071497 QIE qieuser INDOMETHACIN 50 MG CAPS Take 1 capsule by mouth 3 (Three) Times a Day With Meals. 01/19 indomethacin 87922071055 QIE qieuser IBUPROFEN (IBUPROFEN) 800 MG TABS Take 1 tablet by mouth Every 6 (Six) Hours As Needed. 01/19 IBUPROFEN QIE qieuser ENTRESTO 24-26 MG TABS TAKE ONE TABLET BY MOUTH TWICE DAILY 01/19 sacubitril-valsa rtan 88593244366 QIE qieuser GLYXAMBI 10-5 MG TABS Take 1 tablet by mouth Daily. 01/19 empagliflozin-li nagliptin 39475942718 QIE qieuser FARXIGA 10 MG TABS Take 10 mg by mouth Daily. 01/19 dapagliflozin propanediol 59119550378 QIE qieuser BUMETANIDE 2 MG TABS TAKE ONE TABLET BY MOUTH TWICE DAILY 01/19 bumetanide 06054421861 QIE qieuser ADVAIR DISKUS 250-50 MCG/ACT AEPB Inhale 1 puff 2 (Two) Times a Day. 01/19 fluticasone propion-salmeter ol 41609869629 QIE qieuser CEFUROXIME AXETIL 500 MG TABS 1 tablet by mouth twice a day cefuroxime axetil 74200105386 Calvin Villarreal MD Medications Administered No information available. 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
--- OUTSIDE RECORDS SUMMARY | 2025-08-02 14:39 | XMS_ITS | Clinical Summary ---
Author Organization [facility] Address [address] [place] [address] Phone Care Team Providers Care Rib Bender Name Role Phone Unavailable Primary Care Provider [...] Description 08/09/2025 3:00 PM EDT Appointment [address] [place] [address] Bradley Gonzales MD [address] [place] [id number] Health Maintenance Due Date Last Done [...] patient's age to complete this topic Insurance [facility] [place] [address]
--- OUTSIDE RECORDS SUMMARY | 2025-08-02 14:39 | XMS_ITS | Encounter Summary ---
Author Organization [facility] Address [address] [place] [address] Care Team Providers Care Action Installer Name Role Phone Juarez Griffin MD Primary Care Provider [phone] Encounter Details Date Type Department Care Team (Late st Contact Info) Description 05/11/2025 Telephone [facility] CARDIOLOGY [address] [place] [address] Shell Diaz RegSched Rep Social History Tobacco Use Types Packs/Day Years Used Date Smoking Tobacco: Never Passive Smoke Exposure: Never Smokeless Tobacco: Never Alcohol Use Standard Drinks/Week Comments Not Currently 0 (1 standard drink = 0.6 oz pur e alcohol) Maybe 3 drinks annually [facility] Utilities Answer Date Recorded In the past 12 months has [employer] electric, gas, oil, or water company threatened [...] heating? Not hard at all 04/16/2024 [facility] [place] of Occupat ional Health - Occupational Stress [...] or training? Not on file Preferred Language Armenian 02/25/2025 PHQ-2 Answer Date Recorded Retired PHQ-9: [...] Description 11/01/2025 1:30 PM EST Office Visit [facility] CARDIOLOG[facility] [address] [place] [phone] Yaneth Ugarte MD [address] [place] [address] documented as of this encounter Visit Diagnoses Not on filedocumented in this encounter Care Teams Action Installer Relationship Specialty Start Date End Date Juarez Griffin MD [address] [facility] [address] [place] [address] PCP - General Internal Medicine 05/30/23 documented as of this encounter
--- OUTSIDE RECORDS SUMMARY | 2025-08-02 14:40 | XMS_ITS | Clinical Summary ---
Author Organization [facility] ([place], [place], [place], [place]) Address [address] [place] [address] Care Team Providers Care Gyroscopic Engineering Technician Name Role Phone Juarez Griffin MD [...] Do you speak a language other than Hong Konger at [facility]? No 12/27/2023 Do you want help with [...] Completed 10/30/2023, Medical Devices Implanted Type Area Slitter Processed Film Device Identifier Shelf Expiration Date Model / Serial / Lot Loop Recorder LOOP RECORDER Left: Chest Insurance [employer]NA [facility] [place] Advance Directives For more information, please contact: [phone] * Full Code (Latest Code Status on File) Date Activated Date Inactivated Comments 12/27/2023 3:21 AM 12/30/2023 2:53 PM -Attempt Resus citation if person has no pulse and is not breathing. -If no pulse or not breathing attempt CPR/CODE. -Call Rapid Response if patient is in distress. Care Teams Gyroscopic Engineering Technician Relationship Specialty Start Date End Date Juarez Griffin MD [address] [place] [address] PCP - General General Internal Medicine 12/30/23
--- OUTSIDE RECORDS SUMMARY | 2025-08-02 14:40 | XMS_ITS | Encounter Summary ---
Author Organization [facility] Address [address] [place] [address] Care Team Providers Care Sheetrock Applicator Name Role Phone Juarez Griffin MD Primary Care Provider [phone] Reason for Visit * Reason Comments Med Refill Encounter Details Date Type Department Care Team (Late st Contact Info) Description 07/01/2025 Refill [facility] CARDIOLOGY [address] [place] [address] Yaneth Ugarte MD [address] [place], [place] [id number] Med Refill Social History Tobacco Use Types Packs/Day Years Used Date Smoking Tobacco: Never Passive Smoke Exposure: Never Smokeless Tobacco: Never Alcohol Use Standard Drinks/Week Comments Not Currently 0 (1 standard drink = 0.6 oz pur e alcohol) Maybe 3 drinks annually [facility] Utilities Answer Date Recorded In the past 12 months has [employer], oil, or water [employer] threatened to shut off services in your [...] and heating? Not hard at all 04/16/2024 [facility] [place] of Occupat ional Health - Occupational Stress [...] or training? Not on file Preferred Language Albanian 02/25/2025 PHQ-2 Answer Date Recorded Retired PHQ-9: [...] Description 11/01/2025 1:30 PM EST Office Visit [facility] C[facility]IOLOG[facility] [address] [phone] Yaneth Ugarte MD [address] [place] [address] documented as of this encounter Visit Diagnoses Not on filedocumented in this encounter Care Teams Sheetrock Applicator Relationship Specialty Start Date End Date Juarez Griffin MD [address] [facility] [address] [place] [address] PCP - General Internal Medicine 05/30/23 documented as of this encounter
--- OUTSIDE RECORDS SUMMARY | 2025-08-02 14:40 | XMS_ITS | Referral Summary ---
Author Organization [facility] ([place], [place], [place], [place]) Address [address] [place] [address] Care Team Providers Care Clinical Science Consultant Name Role Phone Juarez Griffin MD Primary Care Provider [phone] Allergies Active Allergy Reactions Criticality Noted Date [...] Do you speak a language other than Swedish at [facility]? No 12/27/2023 Do you want [...] on file Medical Devices Implanted Type Area Grinding Machine Tender Device Identifier Shelf Expiration Date Model / Serial / Lot Loop Recorder LOOP RECORDER Left: Chest [facility] [place] [address] [facility] Advance Directives For more information, please contact: [phone] * Full Code (Latest Code Status on File) Date Activated Date Inactivated Comments 12/27/2023 3:21 AM 12/30/2023 2:53 PM -Attempt Resus citation if person has no pulse and is not breathing. -If no pulse or not breathing attempt CPR/CODE. -Call Rapid Response if patient is in distress. Care Teams Clinical Science Consultant Relationship Specialty Start Date End Date Juarez Griffin MD [address] [place] [phone] PCP - General General Internal Medicine 12/30/23
--- OUTSIDE RECORDS SUMMARY | 2025-08-02 14:40 | XMS_ITS | Clinical Summary ---
Author Organization [facility] Address [address] [place] [address] Care Team Providers Care Digital Director Name Role Phone Juarez Griffin MD Primary Care Provider [phone] Karen Naqvi DO Unavailable [phone] Allergies Active Allergy Reactions Criticality Noted Date [...] Medical History Relation Name Comments Diabetes Father [place] Heart disease Father [place] Hypertension Father [place] Dementia Mother Marzena Hypertension Mother Marzena Cancer Mother's Brother Lino Heart disease Mother's Brother Lino Diabetes insipidus Other 1 Hypertension Other 2 Lupus Other 3 Cancer Paternal Grandfather Unknown Anesthesia problems Sister Marta Diabetes Sister Marta Heart disease Sister Marta Hypertension Sister Marta Relation Name Status Comments Father [place] Mother Marzena Mother's Brother Lino Other 1 [...] drink first t yue in the morning (EYE-EXPENSE CLERK) to steady your nerves or to [...] Screening 2023 [facility]-Diabetes: Hemoglobin A1C 10/08/2024 04/10/2024 [id number] Vaccine ( season) 2025 10/07/2022, 08/21/2021 [facility]-Influenza [...] this topic Medical Devices Implanted Type Area Valve Technician Device Identifier Shelf Expiration Date Model / Serial / Lot Stent Ureteral Double Pigtail Pos 6fr 24cm - [id number] - [id number] Implanted:Qty: 1 on 04/11/2024 by Harvey Macdonald MD at [facility] Stent Right: [id number] 01/02/2026 [id number] / [id number] / [id number] Loop Recorder-2016 Implanted:04/28 (Quantity not on file) [...] Reactive Non Reactive 04/10/2024 7:25 PM EDT [facility] Comment:Screening for HIV 1 & 2 antibodies, and P24 antigen is NONREACTIVE. No confirmatory testing is required. Blood Venous blood specimen / Unknown Venipuncture / Unknown 04/10/2024 6:11 PM EDT 04/10/2024 6:27 PM EDT Susan Mcclure MD LAB BLOOD ORDERABLES Final Re sult [facility] [address] [place] [address] * Hepatitis C Antibody - ED (04/10/2024 6:11 PM EDT) Hepatitis C Antibody Negative Negative 04/10/2024 7:24 PM EDT HEALTHCARE [facility] Blood Venous blood specimen / Unknown Venipuncture / Unknown 04/10/2024 6:11 PM EDT 04/10/2024 6:26 PM EDT us Susan cMclure MD LAB BLOOD ORDERABLES Final Re sult Performing Organization Address City/[facility]/ZIP Co de Phone Number [facility] [address] [place] [address] * (ABNORMAL) Hemoglobin A1c (04/10/2024 6:11 PM [...] Adults <6.0% Children and Adolescents <7.5% Source: [place] [employer]. Standards of medical care in diabetes,2017. Diabetes Care.2017:40 (suppl 1):S1-S135. HbA1c assay performed by an ion-exchange chromatography method that is certified traceable to the DCCT. 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 Source: [facility] This patient will require contact precautions indefinitely. 04/01/2024 Insurance AETNA [facility] MEDICA[facility] Advance Directives * Full Code (Latest Code Status on File) Date Activated Date Inactivated Comments 04/11/2024 10:12 AM 04/12/2024 3:22 PM Question Answer Comments Patient has decision-making capacity? Yes Care Teams Digital Director Relationship Specialty Start Date End Date Juarez Griffin MD [address] [place] [address] PCP - General 03/10/21 Karen Naqvi DO [address] [address] [place] [address] Referring Physician Obstetrics and Gynecology 09/23/24
--- OUTSIDE RECORDS SUMMARY | 2025-08-02 14:40 | XMS_ITS | Encounter Summary ---
Author Organization [facility] Address [address] [place] [address] Care Team Providers Care Rn Infusion Name Role Phone Juarez Griffin MD Primary Care Provider [phone] Karen Naqvi DO Unavailable [phone] Encounter Details Date Type Department Care Team ([facility] st Contact Info) Description 02/12/2024 Orders Only External Location [address] [place] [address] Gennaro Cuevas MD [facility] [address] [place] [address] Social History Tobacco Use Types Packs/Day Years [...] Comment:+ 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 Source: [facility]. This patient will require contact precautions indefinitely. 04/01/2024 documented as of this encounter Care Teams Rn Infusion Relationship Specialty Start Date End Date Juarez Griffin MD [address] [place] [address] PCP - General 03/10/21 Karen Naqvi DO [facility] [address] [place] [address] Referring Physician Obstetrics and Gynecology 09/23/24 documented as of this encounter
--- OUTSIDE RECORDS SUMMARY | 2025-08-02 14:40 | XMS_ITS | Encounter Summary ---
Author Organization [facility] Address [address] [place] [address] Care Team Providers Care Club Attendant Name Role Phone Juarez Griffin MD Primary Care Provider [phone] Encounter Details Date Type Department Care Team (Late st Contact Info) Description 04/20/2024 Telephone [facility] UROLOGY [address] [place] [address] Demarcus Ames MD [address] [facility] [address] [place] [address] Social History Tobacco Use Types Packs/Day Years Used Date Smoking Tobacco: Never Passive Smoke Exposure: Never Smokeless Tobacco: Never Alcohol Use Standard Drinks/Week Comments Yes 0 (1 standard drink = 0.6 oz pur e alcohol) rarely [facility] Utilities Answer Date Recorded In the past 12 months has [employer], gas, oil, or water [employer] threatened to shut off services in your [...] and heating? Not hard at all 04/16/2024 [employer] [place] of Occupat ional Health - Occupational [...] GED or equivalent No 04/16/2024 Preferred Language Djiboutian 04/16/2024 PHQ-2 Answer Date Recorded Retired PHQ-9: [...] [facility] CARDIOLOGY [address] [place] [phone] Yaneth Ugarte MD [address] [place] [address] documented as of this encounter Visit Diagnoses Not on filedocumented in this encounter Additional Health Concerns Infection Onset Date Last Indicated Resolved Time ESBL 04/01/2024 04/01/2024 03/03/2025 6:48 AM EDT documented as of this encounter Care Teams Club Attendant Relationship Specialty Start Date End Date Juarez Griffin MD [address] [facility] [address] [place] [address] PCP - General Internal Medicine 05/30/23 documented as of this encounter
--- OUTSIDE RECORDS SUMMARY | 2025-08-02 14:40 | XMS_ITS | Encounter Summary ---
Author Organization [facility] Address [address] [place] [id number] Care Team Providers Care Single Needle Operator Name Role Phone Juarez Griffin MD Primary Care Provider [phone] Encounter Details Date Type Department Care Team (Late st Contact Info) Description 04/16/2024 Retail Pharmacy Consultation [facility] [address] [place] [address] [facility] [address] [place], [place] [id number] Social History Tobacco Use Types Packs/Day Years Used Date Smoking Tobacco: Never Passive Smoke Exposure: Never Smokeless Tobacco: Never Alcohol Use Standard Drinks/Week Comments Yes 0 (1 standard drink = 0.6 oz pur e alcohol) rarely C Utilities Answer Date Recorded In the past 12 months has [employer], gas, oil, or water [employer] threatened to shut off services in your [...] and heating? Not hard at all 04/16/2024 [facility] [place] of Occupat ional Health - Occupational Stress [...] GED or equivalent No 04/16/2024 Preferred Language Wolof 04/16/2024 PHQ-2 Answer Date Recorded Retired PHQ-9: [...] Description 11/01/2025 1:30 PM EST Office Visit [facility] [address] [phone] Yaneth Ugarte MD [address] [address] documented as of this encounter Visit Diagnoses Not on filedocumented in this encounter Additional Health Concerns Infection Onset Date Last Indicated Resolved Time ESBL 04/01/2024 04/01/2024 03/03/2025 6:4 8 AM EDT documented as of this encounter Care Teams Single Needle Operator Relationship Specialty Start Date End Date Juarez Griffin MD [address] [facility] [address] [place] [address] PCP - General Internal Medicine 05/30/23 documented as of this encounter
--- OUTSIDE RECORDS SUMMARY | 2025-08-02 14:40 | XMS_ITS | Clinical Summary ---
Author Organization [facility] Address [address] [place] [id number] Care Team Providers Care Programmer Engineering And Scientific Name Role Phone Juarez Griffin MD Primary Care Provider [phone] Allergies Active Allergy Reactions Criticality Noted Date [...] s:Nephrolithias is,Recurrent UTI Call 911. Don't prime. [place] in 1 nostril for overdose. Repeat in 2-3 minutes in other nostril if no or minimal breathing/respon siveness. 2 each 4 Active vitamin D3 125 MCG (5000 UT) [...] (Two) Times a Day. 60 tablet 2 Active nebivolol (BYSTOLIC) 5 MG tablet TAKE ONE TABLET BY MOUTH EVERY DAY 90 tablet 1 5 Active Active Problems Problem Noted Date [...] Type Department Care Team Description 07/01/2025 Refill [facility] [address] [place] [address] Yaneth Ugarte MD Med Refill 05/11/2025 Telephone [facility] [address] [place] [address] Shell Diaz RegSched Rep 05/10/2025 Results Follow-Up [facility] [address] [place] [address] Yaneth Ugarte MD 05/03/2025 1:30 PM EDT Office Visit [facility] [address] [address] Yaneth Ugarte MD Hypercholesterolemia (Primary Dx); PVC (premature ventricular contraction); Precordial chest pain; Swelling of lower extremity 05/03/2025 Patient rounding ([facility]) [facility] [address] [address] Yaneth Ugarte MD 05/03/2025 Travel from Last 3 Months Family History Medical History Relation Name Comments Diabetes Father Wallace bradley Diabetes type II Father Wallace bradley Heart attack Father [place] bradley X2 Heart disease Father Wallace bradley [...] Unknown Anemia Sister Marta Atrial fibrillation Sister Amrta Cancer Sister Marta Skin Fibroids Sister Marta [...] pur e alcohol) Maybe 3 drinks annually [facility] Utilities Answer Date Recorded In the past 12 months has [employer], gas, oil, or water [employer] threatened to shut off services in your [...] and heating? Not hard at all 04/16/2024 [place] of Occupat ional Health - Occupational Stress [...] Completed 04/10/2024 Medical Devices Implanted Type Area Adjustment Clerk Device Identifier Shelf Expiration Date Model / Serial / Lot Kt Seal Hemos Abs Floseal Matrx Fast/Prep 5ml - [id number] Implanted:Qty : 1 on 04/15/2024 by Demarcus Ames MD at [facility] Implant Right: Kidney [employer] 05/29/2025 [id number] / / [id number] Clip Ligat Vasc Horizon Steve Caldera Danile 6ct - [id number] Implanted:Qty : 2 on 03/04/2025 by Zac Mckeon MD at [facility] Implant N/A: Neck [employer] [id number] / / Clip Ligat Vasc Horizon Ti Sm Yel 6ct - [id number] Implanted:Qty : 4 on 03/04/2025 by Zac Mckeon MD at [facility] Implant N/A: Neck [employer] [id number] / / Hemost Abs Surgicel Orig 4x8in Strl - [id number] Implanted:Qty : 1 on 03/04/2025 by Zac Mckeon MD at [facility] Implant N/A: Neck [employer] J [id number] / / Kt Seal Hemos Abs Floseal Matrx 1.5/Fast/Prep 5000/Iu 5ml - [id number] Implanted:Qty : 1 on 03/31/2025 by Demarcus Ames MD at [facility] Implant Left: Back [employer] 08/13/2026 [id number] / / [id number] Stnt Percuflx No Gw 7x26 - [id number] Implanted:Qty : 1 on 04/15/2024 by Demarcus Ames MD at [facility] Stent Right: Kidney [employer] 09/06/2026 [id number] / / [id number] Stnt Percuflx No Gw 7x26 - [id number] Implanted:Qty : 1 on 03/31/2025 by Demarcus Ames MD at [facility] Stent Left: Back [employer] 08/10/2027 [id number] / / [id number] Procedures Procedure Name Priority Date/Time Associated Diagnosis [...] ORDERABLES Final R esult Performing Organization Address [facility] Co de Phone Number [facility]
[address] [place] [address], * Magnesium (05/07/2025) Blood Yaneth Ugarte MD LAB BLOOD ORDERABLES Final R esult Performing Organization Address [facility]/ZIP Co de Phone Number [facility]
[address] [place] [address], [place] [phone] * Lipid Panel (05/07/2025) Blood us Yaneth Ugarte MD LAB BLOOD ORDERABLES Final R esult Performing Organization Address [facility]/ZIP Co de Phone Number [facility]
[address] [place] [address], [place] [phone] * Comprehensive Metabolic Panel (05/07/2025) Blood us Yaneth Ugarte MD LAB BLOOD ORDERABLES Final R esult [facility]
[address] [place] [address], * ECG 12-LEAD (05/03/2025 2:22 PM EDT) [...] Chronic chest pain followed by Dr. Ugarte -[facility] 03/05/24 Chronic diastolic (congestive) heart [...] Procedure: PARATHYROIDECTOMY; Surgeon: Zac Mckeon MD;Location: [facility]; Service: General; Laterality: N/A; PERCUTANEOUS NEPHROSTOLITHOTOMY Right 04/15/2024 Procedure: CYSTOSCOPY & BALLOON OCCLUSION CATHETER PLACEMENT, PRIMARYPERCUTANEOUS ACCESS, NEPHROSTOLITHOTOMY PERCUTANEOUS, WITH STENT EXCHANGE;Surgeon: Demarcus Ames MD; Location: [facility] OR; Service:Urology; Laterality: Right; PERCUTANEOUS NEPHROSTOLITHOTOMY Left 03/31/2025 Procedure: Percutaneous nephrolithotomy with stent placement left,cystoscopy; Surgeon: Demarcus Ames MD; Location: [facility] OR;Service: Urology; Laterality: Left; TUBAL [...] file. Laura Ugarte MD Cardiology and [facility] 05/03/2025 Please note that this explicitly excludes time spent on other separatebillable services such as performing procedures or test interpretation,when applicable. This note was created using dictation software which occasionallytranscribes nonsensical phrases. Please contact the provider if anyclarification is needed. us Yaneth Ugarte MD ECG ORDERABLES Final Result from Last 3 Months Insurance [facility] Care Teams Programmer Engineering And Scientific Relationship Specialty Start Date End Date Juarez Griffin MD [address] [facility] [address] [place] [address] PCP - General Internal Medicine 05/30/23
--- NOTE | 2025-08-02 15:02 | US_ITS ---
PROCEDURE: US PELVIC CLINICAL INDICATION: R10.30 - Lower abdominal pain, unspecified COMPARISON: US US PELVIC from 09/15/2024 US US TRANSVAGINAL from 12/07/[address] ABDOMEN PELVIS WO CON from 01/27/[address] ABDOMEN PELVIS WO CON from 02/04/[address] ABDOMEN PELVIS W CON from 03/12/[address] ABDOMEN PELVIS W CON from 06/13/[address] ABDOMEN PELVIS W CON from 07/11/2025 FINDINGS: Transabdominal sonographic images of the pelvis were obtained. UTERUS: The uterus is surgically absent. LEFT OVARY: 4.2cmx4.8 cmx6.3cm with a volume of 67ml. There is a simple cyst measuring 4.4 cm x 3.4 cm x 3.2 cm. RIGHT OVARY: The right ovary is surgically absent. Cystic area in the right adnexa. There continues to be an 11.6 cm x 10.4 cm x 8.6 cm Left ovary is seen and appears normal. Doppler flow to left ovary is seen. There is no fluid in the cul-de-sac. IMPRESSION: 1. The uterus is surgically absent. 2. There continues to be a simple cystic area in the right adnexa that measures 11.6 cm in size. It is not changed significantly in the last year. A lymphocele was suggested in the past. Other considerations would be a mesenteric cyst. 3. The left ovary is mislabeled as the right ovary and contains a simple cyst measuring 4.4 cm. Likely benign but needs follow-up in 3-6 months. Dictated by: Avinash Chapman MD 08/02/2025 16:57 Avinash Chapman MD in OV 08/02/2025 16:57
== END 2025-08-02 23:59 | disposition home or self-care (01) ==
LOC: RAD 14:38
PROVIDERS: PCP Internal Medicine; Visit Provider Obstetrics & Gynecology
DX: N83.292 Other ovarian cyst, left side (principal); R93.89 Abnormal findings on diagnostic imaging of other specified body structures; R10.30 Lower abdominal pain, unspecified; Z90.710 Acquired absence of both cervix and uterus
CPT/HCPCS: 76856

== ENCOUNTER 2025-08-12 15:22 | Outpatient (CLI) | payer OTHER, SELFPAY ==
--- OUTSIDE RECORDS SUMMARY | 2025-08-12 15:24 | XMS_ITS | Encounter Summary ---
Author Organization [facility] Address [address] [place] [address] Care Team Providers Care Six Pack Loader Operator Name Role Phone Juarez Griffin MD Primary Care Provider [phone] Reason for Visit * Reason Comments Med Refill Encounter Details Date Type Department Care Team (Late st Contact Info) Description 07/01/[address] [facility] [address] [place] [address] Yaneth Ugarte MD [address] [place], [place] [id number] Med Refill Social History Tobacco Use Types Packs/Day Years Used Date Smoking Tobacco: Never Passive Smoke Exposure: Never Smokeless Tobacco: Never Alcohol Use Standard Drinks/Week Comments Not Currently 0 (1 standard drink = 0.6 oz pur e alcohol) Maybe 3 drinks annually [facility] Utilities Answer Date Recorded In the past 12 months has [employer], oil, or water [employer] threatened to shut off services in your [...] at all 04/16/2024 [facility] [place] of Occupat ional Health - Occupational Stress [...] [facility] [address] [phone] Yaneth Ugarte MD [address] [address] documented as of this encounter Visit Diagnoses Not on filedocumented in this encounter Care Teams Six Pack Loader Operator Relationship Specialty Start Date End Date Juarez Griffin MD [address] [facility] [address] [place] [address] PCP - General Internal Medicine 05/30/23 documented as of this encounter
--- OUTSIDE RECORDS SUMMARY | 2025-08-12 15:24 | XMS_ITS | Encounter Summary ---
[facility] Organization [facility] Address [address] [place] [address] Care Team Providers Care Machine Operator Assistant Name Role Phone Juarez Griffin MD Primary Care Provider [phone] Encounter Details Date Type Department Care Team (Late st Contact Info) Description 05/11/2025 Telephone [facility] [address] [place] [address] Shell Diaz RegSched Rep Social History Tobacco Use Types Packs/Day Years Used Date Smoking Tobacco: Never Passive Smoke Exposure: Never Smokeless Tobacco: Never Alcohol Use Standard Drinks/Week Comments Not Currently 0 (1 standard drink = 0.6 oz pur e alcohol) Maybe 3 drinks annually [facility] Utilities Answer Date Recorded In the past 12 months has [employer], gas, oil, or water company threatened [...] hard at all 04/16/2024 [facility] [place] of Occupat ional Health - Occupational Stress [...] or training? Not on file Preferred Language Burmese 02/25/2025 PHQ-2 Answer Date Recorded Retired PHQ-9: [...] Description 11/01/2025 1:30 PM EST Office Visit [facility] [address] [place] [phone] Yaneth Ugarte MD [address] [place] [address] documented as of this encounter Visit Diagnoses Not on filedocumented in this encounter Care Teams Machine Operator Assistant Relationship Specialty Start Date End Date Juarez Griffin MD 1210 [facility] [address] [place] [address] PCP - General Internal Medicine 05/30/23 documented as of this encounter
--- OUTSIDE RECORDS SUMMARY | 2025-08-12 15:24 | XMS_ITS | Clinical Summary ---
Author Organization [facility] Address [address] [facility] [facility] [address] [place] [address] Phone Care Team Providers Care Otr Flatbed Company Truck Driver Name Role Phone Zofia Perkins Unavailable Unavailable Conditions or Problems Problem Name Problem Code Onset Date Status Entry Date Provider Comment Standard Description Annotate Acute Pyelonephritis 30890236 (SNOMED CT) 01/07 Active 01/07 Malina Ames Acute pyelonephritis Obstructive uropathy with infection N13.6 (ICD-10-C M) 01/07 Active 01/07 Malina Ames Pyonephrosis Neutrophilic leukemoid reaction D72.823 (ICD-10-C M) 01/07 Active 01/07 Malina Ames Leukemoid reaction COPD 98160489 (SNOMED CT) 01/07 Active 01/07 Malina Ames Chronic obstructive pulmonary disease Morbid obesity due to excess calories E66.01 (ICD-10-C M) 01/07 Active 01/07 Malina Ames Morbid (severe) obesity due to excess calories DM Type II E11.9 (ICD-10-C M) 01/07 Active 01/07 Malina Ames Type 2 diabetes mellitus without complications Benign hypertensive heart disease with chronic diastolic heart failure (I50.32) 21474572 (SNOMED CT) 01/07 Active 01/07 Malina Ames Benign hypertension Medications Medication Instructions Start Date Stop Date Generic Name [facility] Provider FOSFOMYCIN TROMETHAMINE 3 GM PACK Take 1 packet by mouth as directed take 1 packet every 3-4 days (2 times weekly) fosfomycin tromethamine 22146759691 Calvin Villarreal MD PREDNISONE 20 MG TABS prednisone 84641754908 Milly Jabierbrianne VITAMIN C 500 MG CAPS twice a day ascorbic acid (vitamin c) 21588043936 Milly Mosquera HIPREX 1 GM TABS Take 1 tablet by mouth twice a day 02/18 methenamine hippurate 04701884172 Calvin Villarreal MD INDOMETHACIN 50 MG CAPS Take 1 capsule by mouth three times a day indomethacin 43666368194 Linda De Leon SUCRALFATE 1 GM TABS Take 1 tablet by mouth four times a day sucralfate 91673245765 Linda De Leon BUMETANIDE 2 MG TABS Take 1 tablet by mouth twice a day bumetanide 47418874185 Linda De Leon PRAVASTATIN SODIUM 10 MG TABS Take 1 tablet by mouth every night pravastatin 28276789174 Linda De Leon ENTRESTO 24-26 MG TABS Take 1 tablet by mouth twice a day sacubitril-valsa rtan 53424985104 Linda De Leon VENTOLIN HFA 108 (90 Base) MCG/ACT AERS Inhale 2 puff by mouth every four to six hours as needed albuterol sulfate 76270455748 Linda De Leon ADVAIR DISKUS 250-50 MCG/ACT AEPB Inhale 1 puff twice a day fluticasone propion-salmeter ol 91250568115 Linda De Leon OMEPRAZOLE 20 MG CPDR Take 1 capsule by mouth once a day omeprazole 83914582408 Linda De Leon METFORMIN HCL 500 MG TABS Take 1 tablet by mouth twice a day metformin 24109833839 Linda De Leon FARXIGA 10 MG TABS Take 10 mg by mouth once a day dapagliflozin propanediol 99871304014 Linda De Leon IBUPROFEN (IBUPROFEN) 800 MG TABS Take 1 tablet by mouth every six hours as needed IBUPROFEN Linda De Leon TIZANIDINE HCL 4 MG TABS Take 1 tablet by mouth as needed tizanidine 75873977709 Linda De Leon TRAMADOL HCL 50 MG TABS every twelve hours tramadol 44564831651 Linda De Leon NITROGLYCERIN 0.[address] 1 tablet under tongue as needed nitroglycerin 77756106378 Linda Moises ONDANSETRON HCL 4 MG TABS Take 1 tablet by mouth every eight hours as needed ondansetron hcl 84013295400 Linda Moises SPIRONOLACTONE 50 MG TABS Take 1 tablet by mouth once a day spironolactone 69947718230 Linda De Leon SITagliptin (JANUVIA) 25 MG tablet Take 1 tablet by mouth once a day JANOLIVER De Leon NEBIVOLOL HCL 5 MG TABS Take 1 tablet by mouth once a day nebivolol 60635252774 Jazieltyree De Leon GLYXAMBI 10-5 MG TABS Take 1 tablet by mouth once a day empagliflozin-li nagliptin 94629929485 Linda De Leon VENTOLIN HFA 108 (90 Base) MCG/ACT AERS INHALE TWO PUFFS BY MOUTH EVERY 4 TO 6 HOURS NEEDED 01/19 albuterol sulfate 47915783313 QIE qieuser TRAMADOL HCL 50 MG TABS Every 12 (Twelve) Hours. 01/19 tramadol 46192376243 QIE qieuser TIZANIDINE HCL 4 MG TABS Take 1 tablet by mouth As Needed. 01/19 tizanidine 94157579411 QIE qieuser SUCRALFATE 1 GM TABS Take 1 tablet by mouth 4 (Four) Times a Day. 01/19 sucralfate 76575445230 QIE qieuser SPIRONOLACTONE 50 MG TABS TAKE ONE TABLET BY MOUTH EVERY DAY 01/19 spironolactone 64787343778 QIE qieuser SITagliptin (JANUVIA) 25 MG tablet Take 1 tablet by mouth Daily. 01/19 JANUVIA QIE qieuser PRAVASTATIN SODIUM 10 MG TABS TAKE ONE TABLET BY MOUTH EVERY DAY AT BEDTIME 01/19 pravastatin 17435466074 QIE qieuser ONDANSETRON HCL 4 MG TABS Take 1 tablet by mouth Every 8 (Eight) Hours As Needed. 04/27 ondansetron hcl 75635899681 QIE qieuser OMEPRAZOLE 20 MG CPDR TAKE ONE CAPSULE BY MOUTH EVERY DAY 04/27 omeprazole 16903163084 QIE qieuser O2 (OXYGEN) 2 L by Alternating Nares route Every Night. OXYGEN QIE qieuser NITROGLYCERIN 0.[address] 1 tablet under the tongue As Needed for Chest Pain. 01/19 nitroglycerin 43186746571 QIE qieuser NEBIVOLOL HCL 5 MG TABS TAKE ONE TABLET BY MOUTH EVERY DAY 01/19 nebivolol 74632317001 QIE qieuser METFORMIN HCL 500 MG TABS Take 1 tablet by mouth 2 (Two) Times a Day. 01/19 metformin 03788445527 QIE qieuser IPRATROPIUM-ALBUT MIK 0.5-2.5 (3) MG/3ML SOLN ipratropium-albu terol 31987591356 QIE qieuser INDOMETHACIN 50 MG CAPS Take 1 capsule by mouth 3 (Three) Times a Day With Meals. 01/19 indomethacin 16091790629 QIE qieuser IBUPROFEN (IBUPROFEN) 800 MG TABS Take 1 tablet by mouth Every 6 (Six) Hours As Needed. 01/19 IBUPROFEN QIE qieuser ENTRESTO 24-26 MG TABS TAKE ONE TABLET BY MOUTH TWICE DAILY 01/19 sacubitril-valsa rtan 72214773738 QIE qieuser GLYXAMBI 10-5 MG TABS Take 1 tablet by mouth Daily. 01/19 empagliflozin-li nagliptin 52712688024 QIE qieuser FARXIGA 10 MG TABS Take 10 mg by mouth Daily. 01/19 dapagliflozin propanediol 42442012052 QIE qieuser BUMETANIDE 2 MG TABS TAKE ONE TABLET BY MOUTH TWICE DAILY 01/19 bumetanide 14554002640 QIE qieuser ADVAIR DISKUS 250-50 MCG/ACT AEPB Inhale 1 puff 2 (Two) Times a Day. 01/19 fluticasone propion-salmeter ol 81572883951 QIE qieuser CEFUROXIME AXETIL 500 MG TABS 1 tablet by mouth twice a day cefuroxime axetil 89423336403 Calvin Villarreal MD Medications Administered No information [...] status SMOK STATUS Never smoker Toba accounts payable lead smoking status MEDS REVIEW Done Documenta tion [...]
--- OUTSIDE RECORDS SUMMARY | 2025-08-12 15:24 | XMS_ITS | Encounter Summary ---
Author Organization [facility] Address [address] [place] [address] Care Team Providers Care Operation Manager Name Role Phone Juarez Griffin MD Primary Care Provider [phone] Encounter Details Date Type Department Care Team (Late st Contact Info) Description 05/10/2025 Results Follow-Up [facility] [address] [place] [address] Yaneth Ugarte MD [address] [place], [place] [id number] Social History Tobacco Use Types Packs/Day Years Used Date Smoking Tobacco: Never Passive Smoke Exposure: Never Smokeless Tobacco: Never Alcohol Use Standard Drinks/Week Comments Not Currently 0 (1 standard drink = 0.6 oz pur e alcohol) Maybe 3 drinks annually [facility] Utilities Answer Date Recorded In the past 12 months has [employer], gas, oil, or water [employer] threatened to shut off services in your [...] and heating? Not hard at all 04/16/2024 [facility] [place] of Occupat ional Health - Occupational Stress [...] Description 11/01/2025 1:30 PM EST Office Visit [facility] [address] [address] Yaneth Ugarte MD [address] [address] documented as of this encounter Visit Diagnoses Not on filedocumented in this encounter Care Teams Operation Manager Relationship Specialty Start Date End Date Juarez Griffin MD [address] [facility] [address] [place] [address] PCP - General Internal Medicine 05/30/23 documented as of this encounter
--- OUTSIDE RECORDS SUMMARY | 2025-08-12 15:25 | XMS_ITS | Encounter Summary ---
[facility] Organization [facility] Address [address] [place] [address] Care Team Providers Care Tennis Player Name Role Phone Juarez Griffin MD Primary Care Provider [phone] Encounter Details Date Type Department Care Team (Late st Contact Info) Description 04/20/2024 Telephone [facility]OLOGY [address] [place] [address] Demarcus Ames MD [address] [facility] [address] [place] [address] Social History Tobacco Use Types Packs/Day Years Used Date Smoking Tobacco: Never Passive Smoke Exposure: Never Smokeless Tobacco: Never Alcohol Use Standard Drinks/Week Comments Yes 0 (1 standard drink = 0.6 oz pur e alcohol) rarely [facility] Utilities Answer Date Recorded In the past 12 months has [employer], gas, oil, or water [employer] threatened to shut off services in your [...] and heating? Not hard at all 04/16/2024 [place] of Occupat ional Health - Occupational Stress [...] GED or equivalent No 04/16/2024 Preferred Language Mauritanian 04/16/2024 PHQ-2 Answer Date Recorded Retired PHQ-9: [...] [facility] [address] [phone] Yaneth Ugarte MD [address] [place] [address] documented as of this encounter Visit Diagnoses Not on filedocumented in this encounter Additional Health Concerns Infection Onset Date Last Indicated Resolved Time ESBL 04/01/2024 04/01/2024 03/03/2025 6:48 AM EDT documented as of this encounter Care Teams Tennis Player Relationship Specialty Start Date End Date Juarez Griffin MD [address] [facility] [address] [place] [address] PCP - General Internal Medicine 05/30/23 documented as of this encounter
--- OUTSIDE RECORDS SUMMARY | 2025-08-12 15:25 | XMS_ITS | Encounter Summary ---
[facility] Address [address] [place] [id number] Care Team Providers Care Welt Insole Channeler Name Role Phone Juarez Griffin MD Primary Care Provider [phone] Encounter Details Date Type Department Care Team (Late st Contact Info) Description 04/16/2024 Retail Pharmacy Consultation [facility] [place] [address] [place] [address] [facility] [address] [place], [place] [id number] Social History Tobacco Use Types Packs/Day Years Used Date Smoking Tobacco: Never Passive Smoke Exposure: Never Smokeless Tobacco: Never Alcohol Use Standard Drinks/Week Comments Yes 0 (1 standard drink = 0.6 oz pur e alcohol) rarely C Utilities Answer Date Recorded In the past 12 months has [employer], gas, oil, or water [employer] threatened to shut off services in [...] hard at all 04/16/2024 [facility] [place] of Occupat ional Health - Occupational Stress [...] GED or equivalent No 04/16/2024 Preferred Language Japanese 04/16/2024 PHQ-2 Answer Date Recorded Retired PHQ-9: [...] [facility] [address] [id number] Yaneth Ugarte MD [address] [id number] documented as of this encounter Visit Diagnoses Not on filedocumented in this encounter Additional Health Concerns Infection Onset Date Last Indicated Resolved Time ESBL 04/01/2024 04/01/2024 03/03/2025 6:48 AM EDT documented as of this encounter Care Teams Welt Insole Channeler Relationship Specialty Start Date End Date Juarez Griffin MD [address] [facility] [address] [id number] PCP - General Internal Medicine 05/30/23 documented as of this encounter
--- OUTSIDE RECORDS SUMMARY | 2025-08-12 15:25 | XMS_ITS | Clinical Summary ---
Author Organization [facility] Address [address] [place] [id number] Care Team Providers Care Wildlife Removal Specialist Name Role Phone Juarez Griffin MD [...] s:Nephrolithias is,Recurrent UTI Call 911. Don't prime. [place] in 1 nostril for overdose. Repeat in [...] Type Department Care Team Description 07/01/2025 Refill [facility] [address] [place] [address] Yaneth Ugarte MD Med Refill from Last 3 Months Family History Medical History Relation Name Comments Diabetes Father Wallace bradley Diabetes type II Father Wallace bradley Heart attack Father Wallace bradley X2 Heart disease Father Wallacemarlon bradley Hypertension Father Wallace bradley Obesity Father Markesan bradley Obesity Maternal Aunt Faye Heart disease Maternal Grandfather Bony Easonna Cancer Maternal Uncle 1 Lino armas Obesity [...] bradley Maternal Aunt Faye Maternal Grandfather Bony VenegasKenna Alive Maternal Uncle 1 Lino armas Maternal [...] alcohol) Maybe 3 drinks annually [facility] Utilities Answer Date Recorded In the [...] heating? Not hard at all 04/16/2024 [facility] [place] of Occupat ional Health - Occupational Stress [...] or training? Not on file Preferred Language Angolan 02/25/2025 PHQ-2 Answer Date Recorded Retired PHQ-9: [...] Description 11/01/2025 1:30 PM EST Office Visit [facility] [address] [place] [address] Yaneth Ugarte MD [address] [place] [address] Health Maintenance Due Date Last Done Comments [...] Completed 04/10/2024 Medical Devices Implanted Type Area Color Grinder Device Identifier Shelf Expiration Date Model / Serial / Lot Kt Seal Hemos Abs Floseal Matrx Fast/Prep 5ml - [id number] Implanted:Qty : 1 on 04/15/2024 by Demarcus Ames MD at [facility] Implant Right: Kidney [employer] 05/29/2025 [id number] / / [id number] Michael Wilson Md Daniel 6ct - [id number] Implanted:Qty : 2 on 03/04/2025 by Zac Mckeon MD at [facility] Implant N/A: Neck [employer] [id number] / / Clip Ligat Vasc Horizon Ti Sm Yel 6ct - [id number] Implanted:Qty : 4 on 03/04/2025 by Zac Mckeon MD at [facility] Implant N/A: Neck [employer] [id number] / / Hemost Abs Surgicel Orig 4x8in Strl - [id number] Implanted:Qty : 1 on 03/04/2025 by Zac Mckeon MD at [facility] Implant N/A: Neck [employer] [id number] / / Kt Seal Hemos Abs Floseal Matrx 1.5/Fast/Prep 5000/Iu 5ml - [id number] Implanted:Qty : 1 on 03/31/2025 by Demarcus Ames MD at [facility] Implant Left: Back [employer] 08/13/2026 [id number] / / [id number] Stnt Percuflx No Gw 7x26 - [id number] Implanted:Qty : 1 on 04/15/2024 by Demarcus Ames MD at [facility] Stent Right: Kidney [employer] 09/06/2026 [id number] / / [id number] Stnt Percuflx No Gw 7x26 - [id number] Implanted:Qty : 1 on 03/31/2025 by Demarcus Ames MD at [facility] Stent Left: Back [employer] 08/10/2027 [id number] / / [id number] Procedures Procedure Name Priority Date/Time Associated Diagnosis Comments LIPID PANEL Routine 05/07/2025 Hypercholesterolemia PVC (premature ventricular contraction) from Last 3 Months or Most Recently Relevant to Health Maintenance Results * Lipid Panel (05/07/2025) Blood us Yaneth Ugarte MD LAB BLOOD ORDERABLES Final R esult [facility]
[address] [place] [address], from Last 3 Months or Most Recently Relevant to Health Maintenance Insurance [facility] Care Teams Wildlife Removal Specialist Relationship Specialty Start Date End Date Juarez Griffin MD [address] [facility] [address] [place] [id number] PCP - General Internal Medicine 05/30/23
--- NOTE | 2025-08-12 15:30 | US_ITS ---
FINAL REPORT TECHNIQUE: Sonographic images of the thyroid gland were obtained in the longitudinal and transverse planes. CLINICAL HISTORY: hx nodules/FNA COMPARISON: 08/10/2024 FINDINGS: The right lobe measures 1.4 x 4.1 x 1.6 cm. Right upper pole slightly hypoechoic 9 mm nodule is unchanged. Several colloid cysts are noted. The left lobe measures 2.3 x 4.3 x 1.6 cm. Several tiny colloid cysts are noted. There is a hypoechoic 15 mm lower pole nodule which is unchanged. The isthmus measures 4 mm. This is normal. IMPRESSION: Stable bilateral TR 4 lesions. No new abnormality identified. Reviewed, Interpreted and Dictated by Archana Zazueta MD Transcribed by Liliam Benoit Authenticated and [facility]
== END 2025-08-12 23:59 | disposition home or self-care (01) ==
LOC: RAD 15:22
PROVIDERS: PCP Internal Medicine; Visit Provider Nurse Practitioner
DX: E04.2 Nontoxic multinodular goiter (principal)
CPT/HCPCS: 76536

== ENCOUNTER 2025-08-19 17:55 | Observation (INO) | payer OTHER, SELFPAY ==
[2025-08-19] VITALS (9 sets, daily range): BP systolic 93–131; BP diastolic 50–77; PULSE 60–70; RESP 2–18; TEMP 36.6–37.1; O2SAT 95–98; BMI 46.4; BMI 47.0
--- NOTE | 2025-08-19 17:54 | ECG_ITS ---
APPROVED REPORT Exam: Resting ECG HR:60 bpm ECG Measurements Heart Rate 60 AXES MA 164 P 53 QRSd 90 QRS 17 QT 433 T 33 QTc 434 Conclusion SINUS RHYTHM WITH SINUS ARRHYTHMIA POSSIBLE ANTERIOR MYOCARDIAL INFARCTION , OF INDETERMINATE AGE [30 ms Q WAVE IN V3/V4, OR R < 0.2 mV IN V4] ABNORMAL ECG UNCONFIRMED REPORT Electronically signed by : ERIC FRANCOIS, 08/20/2025 02:05:30
--- NOTE | 2025-08-19 17:59 | HMH.EDGENADL ---
Discharge Plan Disposition Patient Disposition: Admitted Condition: Good Clinical Impressions Clinical Impression: Unstable angina Discharge ED Provider: Gabriela Muniz General Adult HPI General Chief complaint: Chest Pain Stated complaint: Chest pain Time Seen by Provider: 08/19/25 17:59 History of Present Illness HPI narrative: Patient is a 50-year-old female with a past medical history of heart failure on Bumex history of asthma who presents to the emergency department with chest pain. Patient states that her chest pain started today, pressure-like in the center of her chest. Patient states that her chest pain is worse with exertion. Patient denies any shortness of breath. Patient denies any abdominal pain nausea vomiting or diarrhea. Patient denies any recent respiratory symptoms such as runny nose cough congestion. Patient denies any lower extremity edema. Related Data Home Medications ?Medication ?Instructions ?Recorded ?Confirmed nebivolol 5 mg tablet 5 mg PO DAILY 12/21/21 08/20/25 spironolactone 50 mg tablet 50 mg PO DAILY 03/30/22 08/19/25 (Aldactone) omeprazole 20 mg capsule,delayed 20 mg PO DAILY 04/24/22 08/20/25 release cetirizine 10 mg tablet (Zyrtec) 10 mg PO DAILYP PRN Allergy 02/06/24 08/20/25 Symptoms cholecalciferol (vitamin D3) 125 5,000 unit PO DAILY 01/27/25 08/20/25 mcg (5,000 unit) capsule albuterol sulfate 90 mcg/actuation 2 puff inhalation QIDP PRN 03/12/25 08/20/25 aerosol inhaler Shortness Of Breath bumetanide 2 mg tablet 2 mg PO BIDL 03/12/25 08/20/25 nitroglycerin 0.4 mg sublingual 0.4 mg sublingual Q5MINP PRN Chest 05/26/25 08/20/25 tablet Pain metformin 500 mg tablet 500 mg PO BIDWMEAL 06/13/25 08/20/25 montelukast 10 mg tablet 10 mg PO HS 06/13/25 08/20/25 sacubitril 24 mg-valsartan 26 mg 1 tab PO BID 06/13/25 08/19/25 tablet (Entresto) blood sugar diagnostic (FreeStyle #10 ea 07/29/25 08/20/25 Lite Strips) blood-glucose meter (FreeStyle #1 ea 07/29/25 08/20/25 Lite Meter kit) lancets 28 gauge (FreeStyle #100 ea 07/29/25 08/20/25 Lancets) promethazine 12.5 mg tablet 12.5 mg PO Q6HP PRN Nausea And 08/19/25 08/20/25 Vomiting oxycodone 5 mg tablet 5 mg PO Q8HP PRN Moderate Pain 08/20/25 08/20/25 (Scale Score 5-6) tizanidine 2 mg tablet 2 mg PO Q8HP PRN muscle spasticity 08/20/25 08/20/25 Previous Rx's ?Medication ?Instructions ?Recorded pravastatin 40 mg tablet 40 mg PO HS #90 tabs 06/02/25 fluticasone fur. 100 mcg-umeclid 1 inh inhalation DAILY #60 ea 08/02/25 62.5 mcg-vilant 25 mcg inhalat.powder (Trelegy Ellipta) tirzepatide 10 mg/0.5 mL 10 mg (0.5 mL) SQ WEEKLY #2 mL 08/02/25 subcutaneous pen injector (Fadi) tramadol 50 mg tablet 50 mg PO Q6HP PRN Moderate Pain 08/02/25 (Scale Score 5-6) #120 tabs linaclotide 145 mcg capsule 145 mcg PO DAILY #90 caps 08/16/25 (Linzess) Allergies Allergy/AdvReac Type Severity Reaction Status Date / Time aspirin Allergy Severe S-DIFF. Verified 08/19/25 15:11 BREATHING bee venom protein (honey bee) Allergy Severe Anaphylaxis Verified 08/19/25 15:11 Bleach (Sodium Hypochlorite) Allergy Severe diff. Verified 08/19/25 15:11 breathing, dizzy amoxicillin (From Augmentin) Allergy Mild Unknown Verified 08/19/25 15:11 allergy reaction clavulanic acid (From Allergy Mild Unknown Verified 08/19/25 15:11 Augmentin) allergy reaction fluconazole (From Diflucan) Allergy Mild Unknown Verified 08/19/25 15:11 allergy reaction levofloxacin (From Levaquin) Allergy Difficulty Verified 08/19/25 15:11 Breathing pneumococcal vaccine Allergy Unknown Verified 08/19/25 15:11 allergy reaction sulfamethoxazole (From Allergy Unknown Verified 08/19/25 15:11 Bactrim) allergy reaction trimethoprim (From Bactrim) Allergy Unknown Verified 08/19/25 15:11 allergy reaction sucralose (From SUCRALOSE AdvReac Severe breathing Verified 08/19/25 15:11 (FOOD/DRUG)) problems [facility] Disclaimer: The information contained in this section may have been updated after the patient was seen, as this information can be updated by other users. Medical History (Updated 08/20/25 @ 09:44 by Aria Thacker APRN) Thyroid nodule Rheumatoid arthritis Polycystic disease, ovary Type 2 diabetes mellitus without complications Hyperparathyroidism Multiple thyroid nodules Recurrent urinary tract infection Bilateral nephrolithiasis BMI 45.0-49.9, adult Adnexal mass Ovarian cyst Diastolic CHF with preserved left ventricular function, NYHA class 2 Surgical History History of parathyroidectomy History of cardiac catheterization History of loop recorder History of eye surgery History of nephrolithotomy with removal of calculi History of cholecystectomy S/P right oophorectomy S/P hysterectomy History of tubal ligation Family History Other Alzheimer disease Bipolar 1 disorder Dementia Family history of diabetes mellitus type II Family history of myocardial infarction Lung cancer Lupus Social History Smoking Status: Never smoker second hand exposure: No alcohol intake: never substance use type: denies use current occupational status: unemployed and disabled Travel in the last 8 weeks?: None adopted: No caregiver/support person: Yes foster care: No household members: spouse housing: house lives independently: Yes marital status: number of children: 1 number of grandchildren: 2 education level: master's degree service: No jail: No current occupational exposures/hazards: No pets and animals: Yes diet: diabetic well-balanced diet: daily or most days caffeine: Yes Other Medical History Have you received the Flu Vaccine for this season: No Have you received the Pneumonia Vaccine: Yes ROS Obtained: Yes All systems reviewed & no additional complaints except as documented and Yes Systems reviewed as appropriate & no additional complaints except as documented Physical Exam General General appearance: alert and in no apparent distress Head Head exam: atraumatic, normocephalic and normal inspection Eye Eye exam: Present normal appearance, PERRL and EOMI; Absent scleral icterus ENT ENT exam: Present normal exam and normal external ear exam Neck Neck exam: Present normal inspection and full ROM Chest Chest inspection: Present normal inspection and symmetric chest wall rise Respiratory Respiratory exam: Present normal lung sounds bilaterally; Absent respiratory distress or wheezes Cardiovascular Cardiovascular exam: Present regular rate, normal rhythm and normal heart sounds Abdominal Exam Abdominal exam: Present soft and distention; Absent tenderness, guarding or rebound Extremities Exam Extremities exam: Present normal inspection and full ROM Back Exam Back exam: Present normal inspection and full ROM Neurological Exam Neurological exam: Present alert and oriented X3 Psychiatric Psychiatric exam: Present normal affect and normal mood Skin Skin exam: Present warm and dry Medical Decision Making Medical Records Medical records reviewed: Yes I reviewed the patient's medical records. Screening: Per USPSTF and CDC recommendations, given the prevalence of disease in our region, it is our hospital?s policy to screen for HIV and viral Hepatitis for all patients aged 18 and over and those with ongoing risk factors. Harjinder Inquiry Pt receiving controlled substance: No Vital Signs: 08/19/25 18:01 08/19/25 19:00 08/19/25 19:03 Temperature 98 F Temperature Source Oral Pulse Rate 61 61 Pulse Rate [Right Brachial] 66 Respiratory Rate 16 15 16 Blood Pressure 109/56 L 93/57 L Blood Pressure [Right Arm] 131/77 Blood Pressure Mean [Right Arm] 95 Blood Pressure Source Blood Pressure Source [Right Arm] Automatic Cuff Blood Pressure Position Blood Pressure Position [Right Arm] Sitting 02 Sat by Pulse Oximetry 98 96 95 Oxygen Delivery Method Room Air 08/19/25 19:30 08/19/25 20:00 08/19/25 20:31 Temperature Temperature Source Pulse Rate 68 60 Pulse Rate [Right Brachial] Respiratory Rate 18 14 13 Blood Pressure 95/60 L 110/64 123/77 Blood Pressure [Right Arm] Blood Pressure Mean [Right Arm] Blood Pressure Source Blood Pressure Source [Right Arm] Blood Pressure Position Blood Pressure Position [Right Arm] 02 Sat by Pulse Oximetry 95 97 Oxygen Delivery Method 08/19/25 21:01 08/19/25 22:32 Temperature 98.8 F Temperature Source Oral Pulse Rate 64 61 Pulse Rate [Right Brachial] Respiratory Rate 16 2 L Blood Pressure 118/71 101/50 L Blood Pressure [Right Arm] Blood Pressure Mean [Right Arm] Blood Pressure Source Automatic Cuff Blood Pressure Source [Right Arm] Blood Pressure Position Sitting Blood Pressure Position [Right Arm] 02 Sat by Pulse Oximetry 96 Oxygen Delivery Method Room Air Lab Data Lab results reviewed: Yes I reviewed the patient's lab results. Lab Results 08/19/25 18:00: WBC 10.3, RBC 5.08, Hgb 14.7, Hct 44.1, MCV 86.8, MCH 28.9, MCHC 33.3, RDW 12.7, Plt Count 354, MPV 10.2, Neut % (Auto) 58.9, Lymph % (Auto) 31.9, [place] % (Auto) 6.4, Eos % (Auto) 2.0, Baso % (Auto) 0.6, Neut # (Auto) 6.1, Lymph # (Auto) 3.3, [place] # (Auto) 0.7, Eos # (Auto) 0.2, Baso # (Auto) 0.1, D-Dimer 0.55 H, Sodium 136, Potassium 3.7, Chloride 99, Carbon Dioxide 30, Anion Gap 10.7, BUN 15, Creatinine 0.70, Estimated Creat Clear 78, Estimated GFR 88, Est GFR ( Amer) 106, Glucose 119 H, Calcium 9.0, Magnesium 1.6, Total Bilirubin 0.5, AST 37 H, ALT 38, Alkaline Phosphatase 76, Troponin I < 0.01, NT-Pro-B Natriuret Pep 54.9, Total Protein 7.9, Albumin 4.3, Globulin 3.6 H, Albumin/Globulin Ratio 1.2, Lipase 82 08/19/25 19:52: SARS-CoV-2 (PCR) Not detected, Influenza Type A (PCR) Not detected, Influenza Type B (PCR) Not detected, RSV (PCR) Not detected, Rhinovirus (PCR) Not detected 08/19/25 20:37: Troponin I < 0.01 08/20/25 05:59 08/20/25 05:59 Orders (Tests/Meds): ED MEDICATIONS Discontinued Medications Generic Name Dose Route Start Last Admin Trade Name Freq PRN Reason Stop Dose Admin Acetaminophen 650 mg 08/19/25 22:34 Acetaminophen 325mg Tab PO 09/18/25 22:33 Q4HP PRN Fever or Mild Pain (1-3) Hydrocodone Bitart/Acetaminophen 1 tab 08/19/25 22:34 08/20/25 06:47 Hydrocodone/Apap 5/325 Mg Tablet PO 09/18/25 22:33 1 tab Q4HP PRN Administration Mild to Moderate Pain (1-6) Enoxaparin Sodium 40 mg 08/20/25 09:00 08/20/25 09:12 Enoxaparin 40mg/0.4ml Syringe SUBCUT 09/19/25 08:59 40 mg BID ARINA Administration Hydromorphone HCl 0.25 mg 08/19/25 22:34 08/20/25 09:11 Hydromorphone 2mg/Ml Syringe IV 09/18/25 22:33 0.25 mg Q4HP PRN Administration Severe Pain (7-10) Insulin Human Lispro 0 unit 08/20/25 06:00 08/20/25 13:54 Humalog 100 Units/Ml 10ml Vial (Ssi) SUBCUT 09/19/25 05:59 Not Given ACHS ARINA Protocol Iopamidol 80 ml 08/19/25 21:40 08/19/25 21:43 Iopamidol-370 (76%);100ml Bottle IV 08/19/25 21:41 80 ml ONCE ONE Administration Ketorolac Tromethamine 30 mg 08/19/25 19:16 08/19/25 19:31 Ketorolac 30mg/Ml Vial IV 08/19/25 19:17 30 mg ONCE ONE Administration Ondansetron HCl 4 mg 08/19/25 22:34 Ondansetron 4mg/2ml Vial IV 09/18/25 22:33 Q8HP PRN Nausea Sodium Chloride 50 ml 08/19/25 21:40 08/19/25 21:41 0.9 % Sodium Chloride 50 Ml Vial IV 08/19/25 21:41 50 ml ONCE ONE Administration Sodium Chloride 10 ml 08/19/25 21:40 08/19/25 21:41 Sodium Chloride 0.9% 10ml Syr (Rad Only) IV 09/18/25 21:39 10 ml NEEDED PRN Administration Maintain IV Site Sodium Chloride 10 ml 08/19/25 22:34 Sodium Chloride 0.9% 10ml Flush Syringe IV 09/18/25 22:33 NEEDED PRN Maintain IV Site ORDERS Category Date Time Status CT angio chest PE protocol Stat Cat Scan 08/19/25 21:31 Completed CXR --portable [XR chest portable] Stat Exams 08/19/25 18:46 Completed BNP [NT Pro Brain Natriuretic Pep.] Stat Lab 08/19/25 18:00 Completed CBC w/Auto Diff [Complete Blood Count Auto Diff] Stat Lab 08/19/25 18:00 Completed CMP [Comprehensive Metabolic Panel] Stat Lab 08/19/25 18:00 Completed D-Dimer Stat Lab 08/19/25 18:00 Completed Lipase Stat Lab 08/19/25 18:00 Completed MAG [Magnesium] Stat Lab 08/19/25 18:00 Completed Mini Respiratory Panel Stat Lab 08/19/25 19:52 Completed Trop I [Troponin I] Stat Lab 08/19/25 18:00 Completed Troponin I Q3H Lab 08/19/25 20:37 Completed Troponin I Q3H Lab 08/20/25 00:24 Completed Medical Decision Narrative: Patient is a 50-year-old female with a past medical history of heart failure on Bumex, spironolactone as well as high blood pressure and diabetes who presents to the emergency department with centralized chest pressure. On arrival, patient was hemodynamically stable with unremarkable vital signs. Differential includes but not limited to: ACS/WI, pneumonia, pneumothorax, pulmonary embolism, amongst others. Labs were reviewed and interpreted by myself: CBC showed no leukocytosis, hemoglobin was stable. CMP was unremarkable. [id number] glucose was normal. Initial troponin was less than 0.01, second troponin was less than 0.01. Chest x-ray was reviewed and interpreted by myself and showed no acute focal saltation, pneumothorax, pleural effusion or other acute cardiopulmonary process EKG showed normal sinus rhythm without acute ST or T wave changes concerning for ischemia Patient was given aspirin in the emergency department as well as additional medicines for symptomatic management. Patient had taken nitro prior to arrival. On further reassessment, patient continued to have chest pressure. Patient's heart score was moderate therefore I discussed the case with the hospitalist for admission for unstable angina. Patient's D-dimer was mildly elevated however patient was negative by years criteria for pulmonary embolism. They requested CT PE to be obtained, patient was admitted prior to the results. Critical Care Critical Care Time Critical Care Time: No
[2025-08-19 18:21] LABS: Albumin Level 4.3 g/dl (3.5-5.0); Chloride 99 mmol/L (98-107); Potassium 3.7 mmoL/L (3.5-5.1); Sodium 136 mmol/L (136-145)
[2025-08-19 18:23] LABS: Alanine Aminotransferase 38 U/L (12-78); Aspartate Amino Transferase 37 U/L (14-36); Blood Urea Nitrogen 15 mg/dl (7-17); Creatinine Clearance Estimated 78 mL/min (50-200); Creatinine,Serum 0.70 mg/dl (0.52-1.04); Estimated Glomerular Filt Rate 88 ml/min (>60); GFR (African American) 106 ML/MIN (>60)
[2025-08-19 18:24] LABS: Albumin/Globulin Ratio 1.2 (1.1-1.8); Alkaline Phosphatase 76 U/L (38-126); Anion Gap 10.7 mEq/L (5-15); Bilirubin,Total 0.5 mg/dl (0.2-1.3); Calcium 9.0 mg/dl (8.4-10.2); Carbon Dioxide 30 mmol/L (22.0-30.0); Globulin 3.6 g/dL (1.3-3.2); Glucose 119 mg/dl (74-100); Magnesium 1.6 mg/dl (1.6-2.3); Total Protein,Serum 7.9 g/dl (6.3-8.2)
[2025-08-19 18:30] LABS: Lipase 82 U/L (23-300)
[2025-08-19 18:32] LABS: Hematocrit 44.1 % (37.0-47.0); Hemoglobin 14.7 g/dL (12.2-16.2); Immature Granulocytes % 0.2 %; Mean Corpuscular HGB Conc 33.3 g/dL (31.8-35.4); Mean Corpuscular Hemoglobin 28.9 pg (27.0-31.2); Mean Corpuscular Volume 86.8 fl (81-99); Nucleated Red Blood Cells % 0 %; Platelet Count 354 K/mm3 (142-424); Red Blood Count 5.08 M/mm3 (4.20-5.40); Red Cell Distribution Width-SD 40.3 fL; White Blood Count 10.3 K/mm3 (4.8-10.8)
[2025-08-19 18:34] LABS: NT Pro Brain Natriuretic Pep. 54.9 pg/mL (0-125)
[2025-08-19 18:42] LABS: Troponin I < 0.01 ng/ml (0.00-0.034)
--- NOTE | 2025-08-19 18:46 | XR_ITS ---
PROCEDURE INFORMATION: Exam: XR Chest Exam date and time: 08/19/2025 6:54 PM Age: 50 years old Clinical indication: Shortness of breath; Additional info: Shortness of breath/cp TECHNIQUE: Imaging protocol: Radiologic exam of the chest. Views: 1 view. COMPARISON: CR XR CHEST PORTABLE PICC PLAC 03/14/2025 10:25 AM FINDINGS: Lungs: Unremarkable. No consolidation. Pleural spaces: Unremarkable. No pleural effusion. No pneumothorax. Heart/Mediastinum: Unremarkable. No cardiomegaly. Bones/joints: Unremarkable. IMPRESSION: No acute findings.
[2025-08-19 18:54] LABS: D-Dimer 0.55 ug/mL (0.0-0.5)
--- NOTE | 2025-08-19 19:14 | PC.NURSE ---
Pt awake alert and oriented skin pink warm and dry Resp full and easy speech clear and appropriate. Report received from Laury RN IV site without redness or edema Pt requests pain medication MD aware
[2025-08-19] MEDS: KETOROLAC 30MG/ML VIAL 30 MG IV (19:31)
--- NOTE | 2025-08-19 19:33 | PC.NURSE ---
Pt in SR per continuous heart monitor.
[2025-08-19 19:54] LABS: Coronavirus 19, PCR Not Detected (NotDetected); Influenza A, PCR Not Detected (NotDetected); Influenza B, PCR Not Detected (NotDetected)
[2025-08-19 21:08] LABS: Troponin I < 0.01 ng/ml (0.00-0.034)
--- NOTE | 2025-08-19 21:31 | CT_ITS ---
PROCEDURE INFORMATION: Exam: CTA Chest Without And With Contrast Exam date and time: 08/19/2025 9:43 PM Age: 50 years old Clinical indication: Shortness of breath; Chest wall pain; Additional info: Shortness of breath/chest pain TECHNIQUE: Imaging protocol: Computed tomographic angiography of the chest without and with contrast. Exam focused on the arteries. 3D rendering (Not supervised by radiologist): MIP and/or 3D reconstructed images were created by the technologist. Radiation optimization: All CT scans at this facility use at least one of these dose optimization techniques: automated exposure control; mA and/or kV adjustment per patient size (includes targeted exams where dose is matched to clinical indication); or iterative reconstruction. Contrast material: ISOVUE; Contrast volume: 80 ml; Contrast route: INTRAVENOUS (IV); COMPARISON: 1. CT ANGIO CHEST PE PROTOCOL 03/06/2022 12:[address] ABDOMEN PELVIS W CON 02/12/2024 2:[address] ABDOMEN PELVIS W CON 07/11/2025 6:43 PM FINDINGS: Tubes, catheters and devices: A loop recorder is present within the soft tissues anterior left chest. Pulmonary arteries: Normal. No pulmonary emboli. Aorta: Unremarkable. No aortic aneurysm. No aortic dissection. Lungs: There is a irregular 8 x 14 mm nodule within the lingula abutting the left cardiac border series 7, image 75. This has increased in size since the CT of the abdomen and pelvis from 02/12/2024 and is not evident on the CT of the chest from 03/06/2022. No consolidation. Pleural spaces: Unremarkable. No pneumothorax. No pleural effusion. Heart: Unremarkable. No cardiomegaly. No pericardial effusion. Lymph nodes: Unremarkable. No enlarged lymph nodes. Gallbladder and biliary ducts: The gallbladder is absent. Bones/joints: There are mild degenerative changes of the thoracic spine. No acute fracture. Soft tissues: Unremarkable. Other findings: Respiratory motion artifact degrades the images. IMPRESSION: 1. No acute findings. No pulmonary embolus. 2. Enlarging irregular 8 x 14 mm lingular nodule. Further evaluation with PET-CT and/or tissue sampling is recommended.
[2025-08-19] MEDS: 0.9 % SODIUM CHLORIDE 50 ML VIAL IV (21:41)
[2025-08-19] MEDS: SODIUM CHLORIDE 0.9% 10ML SYR (RAD ONLY) 10 ML IV (21:41)
[2025-08-19] MEDS: IOPAMIDOL-370 (76%);100ML BOTTLE 80 ML IV (21:43)
--- NOTE | 2025-08-19 21:57 | PC.NURSE ---
HOspitalist at bedside
--- NOTE | 2025-08-19 22:20 | PC.NURSE ---
Report called to Porsha DANIEL Pt to inpatient unit via wheelchair
--- NOTE | 2025-08-19 22:41 | P.HP_ITS ---
<Statement entered by Alexys Matias MD - 08/20/25 14:19> Rounded on patient after nurse practitioner. Personally examined and interviewed patient. Agree with exam findings and care plan as documented. History of Present Illness *Admission Date: 08/19/25 *Reason for visit:: Chest pain *History of present illness: This is a 50-year-old female who has a past medical history significant for thyroid nodule, rheumatoid arthritis, polycystic ovarian diseas e, type 2 diabetes, hyperparathyroidism, bilateral nephrolithiasis, adrenal mass, ovarian cyst, and HFpEF who presents with a chief complaint of chest pain. Due to patient's symptoms, she presented to the emergency room for evaluation. While in the emergency room, EKG revealed a sinus rhythm, QTc of 434, and normal axis-there was no evidence of any activity consistent with STEMI. Patient's troponin x 2 were within normal limits. Patient's chest x-ray was negative for any acute cardiopulmonary process. She continued to have ongoing chest pain, so she is being admitted for further management. During my evaluation of the patient, patient states her chest pain started at around 10:00 this morning. She states it is ongoing and it is located in the center of her chest with radiation to the left chest to the left arm/to the back in between the shoulders. She reports her chest pain is 7-out of 10 and is worse with activity. She also reports there is some chills and associated shortness of breath but no diaphoresis. Patient recently underwent left heart cath in 2021 and unfortunately those results are unavailable; however, she recent late had a cardiac MRI performed in 2022 that showed no occlusion in any of her coronary arteries. She currently denies any lightheadedness, dizziness, fever, rigors, PND, nausea, vomiting, dyspnea, orthopnea, or diarrhea. Additional pertinent values obtained include a D-dimer of 0.55, blood glucose 119, and AST of 37. [facility] Disclaimer: The information contained in this section may have been updated after the patient was seen, as this information can be updated by other users. Medical History (Updated 08/19/25 @ 22:50 by Darrian Guevara APRN) Thyroid nodule Rheumatoid arthritis Polycystic disease, ovary Type 2 diabetes mellitus without complications Hyperparathyroidism Multiple thyroid nodules Recurrent urinary tract infection Bilateral nephrolithiasis BMI 45.0-49.9, adult Adnexal mass Ovarian cyst Diastolic CHF with preserved left ventricular function, NYHA class 2 Surgical History History of parathyroidectomy History of cardiac catheterization History of loop recorder History of eye surgery History of nephrolithotomy with removal of calculi History of cholecystectomy S/P right oophorectomy S/P hysterectomy History of tubal ligation Family History Other Alzheimer disease Bipolar 1 disorder Dementia Family history of diabetes mellitus type II Family history of myocardial infarction Lung cancer Lupus Social History Smoking Status: Never smoker second hand exposure: No alcohol intake: never substance use type: denies use current occupational status: unemployed and disabled Travel in the last 8 weeks?: None household members: spouse housing: house current occupational exposures/hazards: No caffeine: Yes Have you lived/traveled outside [place] in past 30 days?: No Contact w/someone who lives/traveled outside [place] past 30 days?: No Exposure to someone with infectious disease in past 14 days?: No Do you have a fever (greater than 100.4 F or 38 C)?: No Have you tested positive for COVID-19?: No Exposed to someone with COVID-19 in past 14 days?: No Do you have a sore throat?: No Do you have a cough?: No Do you have any weakness?: No Do you have any diarrhea?: No Are you experiencing any unusual bleeding?: No Do you have any muscle aches/pain?: No Do you have any abdominal pain?: No Are you experiencing loss of taste or smell?: No Other Medical History Have you received the Flu Vaccine for this season: No Have you received the Pneumonia Vaccine: Yes Review of Systems Review of Systems Review of systems:: pertinent systems reviewed and negative unless documented below Constitutional Constitutional: Reports system reviewed and no additional complaints, except as documented Eyes Eyes: Reports system reviewed and no additional complaints, except as documented ENT Ears, Nose, Mouth, and Throat: Reports system reviewed and no additional complaints, except as documented *Cardiovascular Cardiovascular: Reports chest pain, Reports chest pain at rest, Reports chest pain with activity and Reports dyspnea *Respiratory Respiratory: Reports dyspnea *Gastrointestinal Gastrointestinal: Reports system reviewed and no additional complaints, except as documented *Genitourinary Genitourinary: Reports system reviewed and no additional complaints, except as documented *Musculoskeletal Musculoskeletal: Reports atrophy Comments: Wheelchair-bound Integumentary/Breasts Skin/Breast: Reports system reviewed and no additional complaints, except as documented *Neurologic Neurologic: Reports system reviewed and no additional complaints, except as documented Psychiatric Psychiatric: Reports system reviewed and no additional complaints, except as documented Endocrine Endocrine: Reports system reviewed and no additional complaints, except as documented Hematologic/Lymphatic Hematologic/Lymphatic: Reports system reviewed and no additional complaints, except as documented Allergic/Immunologic Allergic/Immunologic: Reports system reviewed and no additional complaints, except as documented Meds Home Medications and Allergies Home Medications ?Medication ?Instructions ?Recorded ?Confirmed ?Type nebivolol 5 mg tablet 5 mg PO DAILY 12/21/2108/19 History spironolactone 50 mg tablet 50 mg PO DAILY 03/30/22 History (Aldactone) omeprazole 20 mg capsule,delayed 20 mg PO DAILY 08/19/25 History release cetirizine 10 mg tablet (Zyrtec) 10 mg PO DAILY 08/19/25 History cholecalciferol (vitamin D3) 125 5,000 unit PO Q48H 08/19/25 History mcg (5,000 unit) capsule albuterol sulfate 90 mcg/actuation 2 puff inhalation Q IDP PRN 03/12/25 08/19/25 History aerosol inhaler Shortness Of Breath bumetanide 2 mg tablet 2 mg PO BIDL 03/12/25 History ondansetron HCl 4 mg tablet 4 mg PO Q6HP PRN Nausea An d 03/12/25 08/19/25 History Vomiting nitroglycerin 0.4 mg sublingual 0.4 mg sublingual Q5MI SQL ANALYST PRN Chest 05/26/25 08/19/25 History tablet Pain pravastatin 40 mg tablet 40 mg PO HS #90 tabs 5 08/19/25 Rx metformin 500 mg tablet 500 mg PO BIDWMEAL 06/13/25 08/19/25 History montelukast 10 mg tablet 10 mg PO HS 06/13/25 5 History sacubitril 24 mg-valsartan 26 mg 1 tab PO BID 06/13/25 08/19/25 History tablet (Entresto) acetaminophen 500 mg capsule 500 mg PO Q6H PRN 5 08/19/25 History blood sugar diagnostic (FreeStyle #10 ea 07/29/2507/29 History Lite Strips) blood-glucose meter (FreeStyle #1 ea 07/29/25 08/16/25 History Lite Meter kit) lancets 28 gauge (FreeStyle #100 ea 07/29/25 08/16/25 History Lancets) fluticasone fur. 100 mcg-umeclid 1 inh inhalation MCKENZIE Y #60 ea 08/02/25 08/19/25 Rx 62.5 mcg-vilant 25 mcg inhalat.powder (Trelegy Ellipta) promethazine 12.5 mg tablet See Rx Instructions .Route 08/02/25 08/19/25 Rx .COMPLEX #30 tabs tirzepatide 10 mg/0.5 mL 10 mg (0.5 mL) SQ WEEKLY #2 mL 08/02/25 08/19/25 Rx subcutaneous pen injector (Elbertunelizabethro) tizanidine 2 mg tablet 2 mg PO Q8H PRN muscle spast icity 08/02/25 08/19/25 Rx #30 tabs tramadol 50 mg tablet 50 mg PO Q6HP PRN Moderate P ain 08/02/25 08/19/25 Rx (Scale Score 5-6) #120 tabs linaclotide 145 mcg capsule 145 mcg PO DAILY #90 caps 08/16/25 08/19/25 Rx (Linzess) oxycodone 5 mg tablet 5 mg PO Q8H PRN pain #30 tab s 08/16/25 08/19/25 Rx ibuprofen 800 mg tablet See Rx Instructions .Route . COMPLEX 08/19/25 History New Prescriptions to Start Prescriptions: Allergies Allergy/AdvReac Type Severity Reaction Status Date / Time aspirin Allergy Severe S-DIFF. Verified 08/19/25 15:11 BREATHING bee venom protein (honey bee) Allergy Severe Anaphylaxis Verified 08/19/25 15:11 Bleach (Sodium Hypochlorite) Allergy Severe diff. Verified 08/19/25 15:11 breathing, dizzy amoxicillin (From Augmentin) Allergy Mild Unknown Verified 08/19/25 15:11 allergy reaction clavulanic acid (From Allergy Mild Unknown Verified 08/19/25 15:11 Augmentin) allergy reaction fluconazole (From Diflucan) Allergy Mild Unknown Verified 08/19/25 15:11 allergy reaction levofloxacin (From Levaquin) Allergy Difficulty Verified 08/19/25 15:11 Breathing pneumococcal vaccine Allergy Unknown Verified 08/19/25 15:11 allergy reaction sulfamethoxazole (From Allergy Unknown Verified 08/19/25 15:11 Bactrim) allergy reaction trimethoprim (From Bactrim) Allergy Unknown Verified 08/19/25 15:11 allergy reaction sucralose (From SUCRALOSE AdvReac Severe breathing Verified 08/19/25 15:11 (FOOD/DRUG)) problems Exam Data for Last 24 hours Vital signs and Labs for Last 24 Hours: Temp Pulse Resp BP Pulse Ox O2 Del Method 98.8 F 61 2 L 101/50 L 96 Room Air 08/19/25 22:32 08/19/25 22:32 08/19/25 22:32 08/19/25 22:32 08/19/25 21:01 08/19/25 22:32 Laboratory Results - last 24 hr 08/19/25 18:00: WBC 10.3, RBC 5.08, Hgb 14.7, Hct 44.1, MCV 86.8, MCH 28.9, MCHC 33.3, RDW 12.7, Plt Count 354, MPV 10.2, Neut % (Auto) 58.9, Lymph % (Auto) 31.9, [place] % (Auto) 6.4, Eos % (Auto) 2.0, Baso % (Auto) 0.6, Neut # (Auto) 6.1, Lymph # (Auto) 3.3, [place] # (Auto) 0.7, Eos # (Auto) 0.2, Baso # (Auto) 0.1, D- Dimer 0.55 H, Sodium 136, Potassium 3.7, Chloride 99, Carbon Dioxide 30, Anion Gap 10.7, BUN 15, Creatinine 0.70, Estimated Creat Clear 78, Estimated GFR 88, Est GFR ( Amer) 106, Glucose 119 H, Calcium 9.0, Magnesium 1.6, Total Bilirubin 0.5, AST 37 H, ALT 38, Alkaline Phosphatase 76, Troponin I < 0.01, NT-Pro-B Natriuret Pep 54.9, Total Protein 7.9, Albumin 4.3, Globulin 3.6 H, Albumin/Globulin Ratio 1.2, Lipase 82 08/19/25 19:52: SARS-CoV-2 (PCR) Not detected, Influenza Type A (PCR) Not detected, Influenza Type B (PCR) Not detected, RSV (PCR) Not detected, Rhinovirus (PCR) Not detected 08/19/25 20:37: Troponin I < 0.01 I & O for Last 24 hours: Intake & Output 08/16/25 08/17/25 08/18/25 08/19/25 23:59 23:59 23:59 23:59 Weight 118.841 kg Constitutional Constitutional: no acute distress, morbidly obese, obese and cooperative *Routine HEENT Exam Head: Present normocephalic and atraumatic Eye: Present EOMI and PERRL ENT: Present mucous membranes moist *Routine Neck Exam Neck: Present supple, full ROM and trachea midline *Routine Respiratory Exam Respiratory: Present CTA bilaterally, normal respiratory effort, able to speak in complete sentences and symmetric chest movement *Routine Cardiovascular Exam Cardiovascular: Present RRR, Normal S1, Normal S2 and bradycardia *Routine Abdominal Exam Abdominal: Present soft and normoactive bowel sounds *Routine Rectal Exam Rectal:: deferred *Routine Genitalia Exam Genitalia:: deferred *Routine Extremities Exam Extremities: Present pulses intact and normal capillary refill Routine Back/Spine/Pelvis Exam Back/Spine: Present full ROM *Routine Skin Exam Skin: Present intact, dry, warm and normal turgor *Routine Neurological Exam Neurological: Present alert, oriented X3 and CN II-XII intact Routine Psychiatric Exam Psychiatric: Present normal affect, normal thought process, cooperative, good insight and good judgment H&P: Result Impressions 50-year-old female with no known coronary her left heart cath/cardiac MRI showing showing no coronary artery disease presents with chest pain while at rest and worsening with activity. Assessment and Plan *Assessment and plan (1) Unstable angina: Status: Acute Category: Medical Code(s): I20.0 - Unstable angina (2) Chest pain: Status: Acute Qualifiers: Chest pain type: unspecified Qualified Code(s): R07.9 - Chest pain, unspecified Category: Medical Code(s): R07.9 - Chest pain, unspecified (3) Elevated d-dimer: Status: Acute Category: Medical Code(s): R79.89 - Other specified abnormal findings of blood chemistry (4) Bradycardia: Status: Acute Category: Medical Code(s): R00.1 - Bradycardia, unspecified Plan Assessment: Unstable angina Chest pain Bradycardia Elevated D-dimer - Will continue to trend patient's troponin - Patient CTA of the chest is pending final read - Will obtain 2D echo in the a.m. - Will consult cardiology - Patient blood pressure is stable and she is without any lightheadedness, dizziness, significant shortness of breath will monitor patient's bradycardia (currently no evidence of any heart blocks) - Lipid panel in the a.m. - Will make patient n.p.o. after midnight in the event patient is left heart cath where the Plan: Admit patient to the [facility] and on telemetry Saline lock Vital signs every 4 hours Cardiac/1800 ADA diet CBC/BMP daily 40 mg of Lovenox subcu daily for DVT prophylax 5 mg [place] p.o. every 4 hours PMR pain 0.25 mg of hydromorphone IV push every 4 hours as needed severe pain Sliding scale insulin AC and at bedtime with mild scale coverage 4 mg Zofran IV push straight hours pain as above Full code I will discussed this case with attending physician Dr. Matias and I look forward to more input
[2025-08-19] MEDS: HYDROMORPHONE 2MG/ML SYRINGE 0.25 MG IV (23:53)
[2025-08-20 00:04] LABS: POC Glucose,Bedside 92 gm/dL (70-110)
[2025-08-20 01:21] LABS: Troponin I < 0.01 ng/ml (0.00-0.034)
[2025-08-20 03:27] VITALS: PULSE 60
[2025-08-20 04:00] VITALS: BP 118/71; PULSE 82; RESP 16; TEMP 36.4; O2SAT 96; BMI 47.0
[2025-08-20 06:03] LABS: POC Glucose,Bedside 114 gm/dL (70-110)
[2025-08-20 06:11] LABS: Hematocrit 40.3 % (37.0-47.0); Hemoglobin 13.4 g/dL (12.2-16.2); Immature Granulocytes % 0.2 %; Mean Corpuscular HGB Conc 33.3 g/dL (31.8-35.4); Mean Corpuscular Hemoglobin 28.8 pg (27.0-31.2); Mean Corpuscular Volume 86.5 fl (81-99); Nucleated Red Blood Cells % 0 %; Platelet Count 304 K/mm3 (142-424); Red Blood Count 4.66 M/mm3 (4.20-5.40); Red Cell Distribution Width-SD 39.8 fL; White Blood Count 10.8 K/mm3 (4.8-10.8)
[2025-08-20 06:21] LABS: Chloride 100 mmol/L (98-107); Potassium 3.3 mmoL/L (3.5-5.1); Sodium 134 mmol/L (136-145)
[2025-08-20 06:24] LABS: Anion Gap 7.3 mEq/L (5-15); Blood Urea Nitrogen 14 mg/dl (7-17); Carbon Dioxide 30 mmol/L (22.0-30.0); Creatinine Clearance Estimated 74 mL/min (50-200); Creatinine,Serum 0.70 mg/dl (0.52-1.04); Estimated Glomerular Filt Rate 88 ml/min (>60); GFR (African American) 106 ML/MIN (>60); Glucose 119 mg/dl (74-100)
[2025-08-20 06:25] LABS: Calcium 8.6 mg/dl (8.4-10.2)
[2025-08-20 06:32] VITALS: PULSE 70
[2025-08-20] MEDS: HYDROCODONE/APAP 5/325 MG TABLET 1 TAB PO (06:47)
[2025-08-20 07:10] LABS: Cholesterol 142 mg/dl (140-200); HDL Cholesterol 21 mg/dl (40-60); Triglycerides 252 mg/dl (30-150)
[2025-08-20 07:57] VITALS: BP 123/52; PULSE 77; RESP 16; TEMP 36.6; O2SAT 95
[2025-08-20 08:00] VITALS: PULSE 90
--- NOTE | 2025-08-20 09:00 | CA_ITS ---
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: BRIGIDA Ibarra, RVS Ht: 5 ft 0 in Wt: 265lbs BSA: 2.10 BP: 110/70 mmHg Indications: CP, DM, RA, Histroy of RVE, CHF Echo Enhancing Agent Comments: Technically difficult Due to extreme body habitus with limited windows 2D Dimensions Left Atrium 3.38 cm LA Volume 71.00 mL LA Volume Index 33.00 mL/m2 (M/F) 16-34 M-Mode Dimensions RVDd 3.38 cm (0.9-2.6) LA Diam 5.41 cm (1.9-4.0) LVDd 5.59 cm (3.5-5.7) LVDs 4.11 cm (3.5-5.7) IVSd 1.13 cm (0.6-1.1) PWd 1.29 cm (0.6-1.1) EF (Teich) 51.20% EPSs 0.77 cm FS 26.50% EDV (Teich) 153.00 mL TAPSE 1.88 (<1.7) ESV (Teich) 74.70 mL LV Diastology E Decel Time 263 (160-240 msec) E/A Ratio 0.71 MED A' 9.40 cm/s LAT A' 9.20 cm/s Aortic Valve GLENN Index 1.30 cm2/m2 AoV Peak Lorenzo. 138.0 (50-130 cm/s) AO Peak GR. 7.60 mmHg AO Mean GR. 3.80 (<5 mmHg) AO VTI 27.8 (18-25 cm) GLENN (VTI) 2.80 (2.5-4.5 cm2) Mitral Valve MV A Velocity 82.0 (40-130 cm/s) E/A Ratio 0.71 Left Ventricle The left ventricle is normal size. Left ventricular systolic function is normal. The left ventricular ejection fraction is within the normal range. There is increased left ventricular wall thickness. There is normal LV segmental wall motion. Transmitral Doppler flow pattern suggests impaired LV relaxation. LVEF is 55% Right Ventricle The right ventricle is mildly dilated. The right ventricular systolic function is normal. Atria Left atrium is mildly dilated. Right atrium is mildly dilated. There is no color Doppler evidence of interatrial shunt. Aortic Valve The aortic valve is mildly thickened. There is no hemodynamically significant aortic valvular stenosis. No aortic regurgitation is present. Mitral Valve The mitral valve is normal in structure. No evidence of mitral valve stenosis. Trace mitral regurgitation is present. Tricuspid Valve The tricuspid valve leaflets are thin and pliable. Trace tricuspid regurgitation. There is insufficient TR jet to estimate RVSP. Pulmonic Valve The pulmonary valve is grossly normal in structure. Trace pulmonic valve regurgitation is present. Great Vessels The aortic root is normal in size. IVC is normal in size and collapses >50% with inspiration. Pericardium There is no pericardial effusion. Other Information Study Quality: Technically Difficult Conclusion Normal biventricular systolic function. Mild RV dilation. Mild biatrial dilation. No significant valvular stenosis or regurgitation. Electronically signed by : Ellen Dalton MD 08/20/2025 18:31:33
--- NOTE | 2025-08-20 09:05 | P.CONCA_ITS ---
History of Present Illness History of Present Illness Consult date: 08/20/25 Requesting physician: Uli Louise Consult reason: chest pain Chief complaint: Chest pain History of present illness: Lissy Valdez is a 50-year-old white female with a past medical history of normal coronaries in 2021, diastolic dysfunction with a noted elevated LVEDP at 40, hypertension and a reported history of pericarditis who presented to emergency department with complaints of chest pain. Patient reports she developed left- sided chest pressure radiating to left arm and back yesterday at 10 AM. She reports pain persisted intermittently throughout the day associated with shortness of breath which is unchanged from baseline. Patient sees Dr. Hennessy in [place] and states she recently had cardiac testing at [facility] and was told jacob muir looked okay, no concern for blockages. Of note, patient is also currently being worked up by Dr. Elizabeth for a left ovarian cyst and a cystic area in the right adnexa (right ovary is surgically absent). EKG upon presentation to ER was negative for STEMI. Serial troponins remain negative. D-dimer was elevated prompting a chest CTA which revealed enlarging irregular 8 x 14 mm lingular nodule and was negative for PE or dissection. Patient was admitted for further evaluation by cardiology for ongoing chest pain. [facility] Disclaimer: The information contained in this section may have been updated after the patient was seen, as this information can be updated by other users. Medical History (Updated 08/20/25 @ 09:44 by Aria Thacker APRN) Thyroid nodule Rheumatoid arthritis Polycystic disease, ovary Type 2 diabetes mellitus without complications Hyperparathyroidism Multiple thyroid nodules Recurrent urinary tract infection Bilateral nephrolithiasis BMI 45.0-49.9, adult Adnexal mass Ovarian cyst Diastolic CHF with preserved left ventricular function, NYHA class 2 Surgical History History of parathyroidectomy History of cardiac catheterization History of loop recorder History of eye surgery History of nephrolithotomy with removal of calculi History of cholecystectomy S/P right oophorectomy S/P hysterectomy History of tubal ligation Family History Other Alzheimer disease Bipolar 1 disorder Dementia Family history of diabetes mellitus type II Family history of myocardial infarction Lung cancer Lupus Social History Smoking Status: Never smoker second hand exposure: No alcohol intake: never substance use type: denies use current occupational status: unemployed and disabled Travel in the last 8 weeks?: None adopted: No caregiver/support person: Yes foster care: No household members: spouse housing: house lives independently: Yes marital status: number of children: 1 number of grandchildren: 2 education level: master's degree service: No penitentiary: No current occupational exposures/hazards: No pets and animals: Yes diet: diabetic well-balanced diet: daily or most days caffeine: Yes Have you lived/traveled outside [place] in past 30 days?: No Contact w/someone who lives/traveled outside US past 30 days?: No Exposure to someone with infectious disease in past 14 days?: No Do you have a fever (greater than 100.4 F or 38 C)?: No Have you tested positive for COVID-19?: No Exposed to someone with COVID-19 in past 14 days?: No Do you have a sore throat?: No Do you have a cough?: No Do you have any weakness?: No Are you experiencing any nausea/vomitting?: Yes Do you have any diarrhea?: No Are you experiencing any unusual bleeding?: No Do you have any muscle aches/pain?: No Do you have any abdominal pain?: No Are you experiencing loss of taste or smell?: No Review of Systems Review of Systems Review of systems:: pertinent systems reviewed and negative unless documented below Constitutional Constitutional: Reports system reviewed and no additional complaints, except as documented *Cardiovascular Cardiovascular: Reports chest pain and Reports dyspnea *Respiratory Respiratory: Reports system reviewed and no additional complaints, except as documented and Reports dyspnea *Gastrointestinal Gastrointestinal: Reports system reviewed and no additional complaints, except as documented *Neurologic Neurologic: Reports system reviewed and no additional complaints, except as documented and Denies confusion Psychiatric Psychiatric: Reports system reviewed and no additional complaints, except as documented and Denies confusion Exam Data for Last 24 hours Vital signs and Labs for Last 24 Hours: Temp Pulse Resp BP Pulse Ox O2 Del Method O2 Flow Rate 97.8 F 77 16 123/52 L 95 Room Air 2 08/20/25 07:57 08/20/25 07:57 08/20/25 07:57 08/20/25 07:57 08/20/25 07:57 08/20/25 07:57 08/20/25 07:00 Laboratory Results - last 24 hr 08/19/25 18:00: WBC 10.3, RBC 5.08, Hgb 14.7, Hct 44.1, MCV 86.8, MCH 28.9, MCHC 33.3, RDW 12.7, Plt Count 354, MPV 10.2, Neut % (Auto) 58.9, Lymph % (Auto) 3 1.9, [place] % (Auto) 6.4, Eos % (Auto) 2.0, Baso % (Auto) 0.6, Neut # (Auto) 6.1, Lymph # (Auto) 3.3, [place] # (Auto) 0.7, Eos # (Auto) 0.2, Baso # (Auto) 0.1, D- Dimer 0.55 H, Sodium 136, Potassium 3.7, Chloride 99, Carbon Dioxide 30, Anion Gap 10.7, BUN 15, Creatinine 0.70, Estimated Creat Clear 78, Estimated GFR 88, Est GFR ( Amer) 106, Glucose 119 H, Calcium 9.0, Magnesium 1.6, Total Bilirubin 0.5, AST 37 H, ALT 38, Alkaline Phosphatase 76, Troponin I < 0.01, NT-Pro-B Natriuret Pep 54.9, Total Protein 7.9, Albumin 4.3, Globulin 3.6 H, Albumin/Globulin Ratio 1.2, Lipase 82 08/19/25 19:52: SARS-CoV-2 (PCR) Not detected, Influenza Type A (PCR) Not detected, Influenza Type B (PCR) Not detected, RSV (PCR) Not detected, Rhinovirus (PCR) Not detected 08/19/25 20:37: Troponin I < 0.01 08/19/25 23:56: POC Glucose 92 08/20/25 00:24: Troponin I < 0.01 08/20/25 05:56: POC Glucose 114 H 08/20/25 05:59: WBC 10.8, RBC 4.66, Hgb 13.4, Hct 40.3, MCV 86.5, MCH 28.8, MCHC 33.3, RDW 12.8, Plt Count 304, MPV 10.0, Neut % (Auto) 65.7, Lymph % (Auto) 23.3, [place] % (Auto) 7.8, Eos % (Auto) 2.5, Baso % (Auto) 0.5, Neut # (Auto) 7.1, Lymph # (Auto) 2.5, [place] # (Auto) 0.9, Eos # (Auto) 0.3, Baso # (Auto) 0.1, Sodium 134 L, Potassium 3.3 L, Chloride 100, Carbon Dioxide 30, Anion Gap 7.3, BUN 14, Creatinine 0.70, Estimated Creat Clear 74, Estimated GFR 88, Est GFR ( Amer) 106, Glucose 119 H, Calcium 8.6, Triglycerides 252 H, Cholesterol 142, LDL Cholesterol Direct 82.45 L, VLDL Cholesterol 50 H, HDL Cholesterol 21 L , Cholesterol/HDL Ratio 6.8 H I & O for Last 24 hours: Intake & Output 08/17/25 08/18/25 08/19/25 08/20/25 23:59 23:59 23:59 23:59 Intake Total 240 / 240 Output Total 0 / 0 0 / 0 Balance 0 / 240 240 / 240 Weight 265 lb 8 oz 265 lb 8 oz Constitutional Constitutional: no acute distress *Routine Respiratory Exam Respiratory: Present CTA bilaterally and symmetric chest movement *Routine Cardiovascular Exam Cardiovascular: Present RRR, Normal S1 and Normal S2 *Routine Abdominal Exam Abdominal: Present soft and normoactive bowel sounds; Absent tenderness *Routine Extremities Exam Extremities: Present full ROM and normal capillary refill; Absent edema *Routine Skin Exam Skin: Present intact, dry and warm Detailed Neck Exam: Thyroids Thyroid: Absent bruit Meds Home Medications and Allergies Home Medications ?Medication ?Instructions ?Recorded ?Confirmed ?Type nebivolol 5 mg tablet 5 mg PO DAILY 12/21/2108/20 History spironolactone 50 mg tablet 50 mg PO DAILY 03/30/22 History (Aldactone) omeprazole 20 mg capsule,delayed 20 mg PO DAILY 08/20/25 History release cetirizine 10 mg tablet (Zyrtec) 10 mg PO DAILYP PRN A llergy 02/06/24 08/20/25 History Symptoms cholecalciferol (vitamin D3) 125 5,000 unit PO DAILY 0 01/27/25 08/20/25 History mcg (5,000 unit) capsule albuterol sulfate 90 mcg/actuation 2 puff inhalation Q IDP PRN 03/12/25 08/20/25 History aerosol inhaler Shortness Of Breath bumetanide 2 mg tablet 2 mg PO BIDL 03/12/25 History nitroglycerin 0.4 mg sublingual 0.4 mg sublingual Q5MI [employer] PRN Chest 05/26/25 08/20/25 History tablet Pain pravastatin 40 mg tablet 40 mg PO HS #90 tabs 5 08/19/25 Rx metformin 500 mg tablet 500 mg PO BIDWMEAL 06/13/25 08/20/25 History montelukast 10 mg tablet 10 mg PO HS 06/13/25 5 History sacubitril 24 mg-valsartan 26 mg 1 tab PO BID 06/13/25 08/19/25 History tablet (Entresto) blood sugar diagnostic (FreeStyle #10 ea 07/29/2507/29 History Lite Strips) blood-glucose meter (FreeStyle #1 ea 07/29/25 08/20/25 History Lite Meter kit) lancets 28 gauge (FreeStyle #100 ea 07/29/25 08/20/25 History Lancets) fluticasone fur. 100 mcg-umeclid 1 inh inhalation MCKENZIE Y #60 ea 08/02/25 08/20/25 Rx 62.5 mcg-vilant 25 mcg inhalat.powder (Trelegy Ellipta) tirzepatide 10 mg/0.5 mL 10 mg (0.5 mL) SQ WEEKLY #2 mL 08/02/25 08/19/25 Rx subcutaneous pen injector (Fadi) tramadol 50 mg tablet 50 mg PO Q6HP PRN Moderate P ain 08/02/25 08/19/25 Rx (Scale Score 5-6) #120 tabs linaclotide 145 mcg capsule 145 mcg PO DAILY #90 caps 08/16/25 08/20/25 Rx (Linzess) promethazine 12.5 mg tablet 12.5 mg PO Q6HP PRN Nausea And 08/19/25 08/20/25 History Vomiting oxycodone 5 mg tablet 5 mg PO Q8HP PRN Moderate Pa in 08/20/25 08/20/25 History (Scale Score 5-6) tizanidine 2 mg tablet 2 mg PO Q8HP PRN muscle spas ticity 08/20/25 08/20/25 History New Prescriptions to Start Prescriptions: Allergies Allergy/AdvReac Type Severity Reaction Status Date / Time aspirin Allergy Severe S-DIFF. Verified 08/19/25 15:11 BREATHING bee venom protein (honey bee) Allergy Severe Anaphylaxis Verified 08/19/25 15:11 Bleach (Sodium Hypochlorite) Allergy Severe diff. Verified 08/19/25 15:11 breathing, dizzy amoxicillin (From Augmentin) Allergy Mild Unknown Verified 08/19/25 15:11 allergy reaction clavulanic acid (From Allergy Mild Unknown Verified 08/19/25 15:11 Augmentin) allergy reaction fluconazole (From Diflucan) Allergy Mild Unknown Verified 08/19/25 15:11 allergy reaction levofloxacin (From Levaquin) Allergy Difficulty Verified 08/19/25 15:11 Breathing pneumococcal vaccine Allergy Unknown Verified 08/19/25 15:11 allergy reaction sulfamethoxazole (From Allergy Unknown Verified 08/19/25 15:11 Bactrim) allergy reaction trimethoprim (From Bactrim) Allergy Unknown Verified 08/19/25 15:11 allergy reaction sucralose (From SUCRALOSE AdvReac Severe breathing Verified 08/19/25 15:11 (FOOD/DRUG)) problems Assessment and Plan *Assessment and plan (1) Chest pain: Status: Acute Qualifiers: Chest pain type: unspecified Qualified Code(s): R07.9 - Chest pain, unspecified Category: Medical Code(s): R07.9 - Chest pain, unspecified (2) (HFpEF) heart failure with preserved ejection fraction: Status: Acute Category: Medical Code(s): I50.30 - Unspecified diastolic (congestive) heart failure Plan Chest pain History of reported pericarditis Left sided chest pain EKG negative for stemi Serial trops negative CTA chest: Negative for PE, enlarging irregular 8X 14mm lingular nodule abutting the left cardiac border, increased in size since the ct abdomen and pelvis 01/2024.- Recommend pulmonology consult. Will Defer. Echo-preliminary report shows normal EF, mild RV dilation, no significant valvular stenosis or regurg. Normal Cors 2021 Cardiac MRI 01/2023: Normal EF, normal RV, no evidence of pericarditis or myocarditis, no CMR evidence of LV scar fibrosis or infarction, no significant valvular abnormalities noted. No plan for intervention at this time. Recommend follow-up with Dr. Hennessy on an outpatient basis. History of HFpEF Elevated LVEDP 40 on last cath BNP 54.9 on admission Continue home diuretics of bumex and aldactone Continue entresto CV summary 08/20/2025: No plan for cardiac intervention at this time. Recommend patient follow-up with Dr. Hennessy early this week for reevaluation. Return to ER for new or worsening symptoms.
[2025-08-20] MEDS: HYDROMORPHONE 2MG/ML SYRINGE 0.25 MG IV (09:11)
--- NOTE | 2025-08-20 10:13 | SW/DCPLANNER ---
Per PT no needs at this time.
--- NOTE | 2025-08-20 10:22 | HMH.OTEV ---
OT Evaluation Rehab OT IP Evaluation Start: 08/19/25 23:25 Freq: ONCE Status: Active Protocol: [facility]20[facility]25 10[email or web address] (Rec: 08/20/25 10:22 [facility] [id number]) Rehab OT IP Assessment Subjective History Pt oriented x 3 on arrival. Pt's present and supportive. Pt admitted 08/19/25 due to unstable angina. History and physical: This is a 50-year-old female who has a past medical history significant for thyroid nodule, rheumatoid arthritis, polycystic ovarian disease, type 2 diabetes, hyperparathyroidism, bilateral nephrolithiasis, adrenal mass, ovarian cyst, and HFpEF who presents with a chief complaint of chest pain. Due to patient's symptoms, she presented to the emergency room for evaluation. While in the emergency room, EKG revealed a sinus rhythm, QTc of 434, and normal axis- there was no evidence of any activity consistent with STEMI. Patient's troponin x 2 were within normal limits. Patient's chest x-ray was negative for any acute cardiopulmonary process. She continued to have ongoing chest pain, so she is being admitted for further management. During my evaluation of the patient, patient states her chest pain started at around 10:00 this morning. She states it is ongoing and it is located in the center of her chest with radiation to the left chest to the left arm/to the back in between the shoulders. She reports her chest pain is 7-out of 10 and is worse with activity. She also reports there is some chills and associated shortness of breath but no diaphoresis. Patient recently underwent left heart cath in 2021 and unfortunately those results are unavailable; however, she recent late had a cardiac MRI performed in 2022 that showed no occlusion in any of her coronary arteries. She currently denies any lightheadedness, dizziness, fever, rigors, PND, nausea, vomiting, dyspnea, orthopnea, or diarrhea. Additional pertinent values obtained include a D-dimer of 0.55, blood glucose 119, and AST of 37. Subjective Prior to being in the hospital, pt lived at home with her . does assist her with lower body dressing/bathing at times. Normally she is independent with getting to and from her wheelchair using cane or rolling walker. She is in wheelchair most times for longer functional transfers. She does assist as needed with light IADLS. completes all heavier IADLS like cleaning, laundry, grocery shopping, etc. is with her 20/05. Objective Patient Orientation Person,Place,Birthday Right Upper WFL Extremity Gross ROM Left Upper Extremity WFL Gross ROM Bed Mobility bed mobility-scooting,bed mobility - supine/sit Assist Level Supervision/Stand by Transfer Training Sit/Stand/Step Transfer Assist Level Supervision/Stand by Chair Transfer Supervision/Stand by Ability Chair Transfer Sit to/from Ambulatory Technique Lower Body Dressing Standby Assistance Ability Rehab OT IP prob,goals,plan Problems Date of Evaluation: 08/20/25 Rehab Potential Rehab Potential Innapropriate for Skilled Therapy Discharge Plan OT Discharge Plan Pt appears to be at her baseline with functional transfers and ADL independence. Pt can return home with her husbands assistance as needed once she is medically stable per physician. Eval Complexity Eval Charge Codes 24520 - Moderate Complexity PHYSICIAN CERTIFICATION: I certify the specified therapy services for Lissy Valdez are required, authorized, and reviewed every 30 days.
--- NOTE | 2025-08-20 10:44 | HMH.PTEV ---
Physical Therapy Evaluation Rehab PT IP Evaluation Start: 08/20/25 02:16 Freq: ONCE Status: Active Protocol: Document 08/20/25 10:38 HERMILO (Rec: 08/20/25 10:44 HERMILO [id number]) Subjective/History History History Per H&P: This is a 50-year-old female who has a past medical history significant for thyroid nodule, rheumatoid arthritis, polycystic ovarian disease, type 2 diabetes, hyperparathyroidism, bilateral nephrolithiasis, adrenal mass, ovarian cyst, and HFpEF who presents with a chief complaint of chest pain. Due to patient's symptoms, she presented to the emergency room for evaluation. While in the emergency room, EKG revealed a sinus rhythm, QTc of 434, and normal axis-there was no evidence of any activity consistent with STEMI. Patient's troponin x 2 were within normal limits. Patient's chest x-ray was negative for any acute cardiopulmonary process. She continued to have ongoing chest pain, so she is being admitted for further management. During my evaluation of the patient, patient states her chest pain started at around 10:00 this morning. She states it is ongoing and it is located in the center of her chest with radiation to the left chest to the left arm/to the back in between the shoulders. She reports her chest pain is 7-out of 10 and is worse with activity. She also reports there is some chills and associated shortness of breath but no diaphoresis. Patient recently underwent left heart cath in 2021 and unfortunately those results are unavailable; however, she recent late had a cardiac MRI performed in 2022 that showed no occlusion in any of her coronary arteries. She currently denies any lightheadedness, dizziness, fever, rigors, PND, nausea, vomiting, dyspnea, orthopnea, or diarrhea. Additional pertinent values obtained include a D-dimer of 0.55, blood glucose 119, and AST of 37. Subjective Subjective Pt reports she is normally uses a w/c for all mobility d/t her POTs and RA. Pt reports he is normally IND with EOB>w/c transfers. Pt lives in a single story home with 2 ROGELIO. Pt's is her primary patient care director. New diagnosis of No cancer in past 12 months? [facility] How much help from another person do you currently need... Turning from your None back to your side while in a flat bed without using bedrails? Moving from lying on None back to sitting on the side of a flat bed without using bedrails? Moving to and from a None bed to a chair ( including a wheelchair)? Standing up from a None chair using your arms? (e.g., wheelchair, bedside chair) Walking in hospital A little room? Climbing 3-5 steps A little with a railing? Mobility Score 22 Mobility Level [facility] Mobility 7 Walk 25 feet or more Mobility Calculator Rehab PT IP Eval Objective Appearance Patient Behavior Appropriate,Cooperative Patient Orientation Person,Situation Difficulty following none instructions Speech Pattern Clear Ambulation Patient Able to Yes Ambulate Ambulation Observation IP General Gait Antalgic Gait,Wide Based Gait Pattern Observation Ambulation Distance 10 (feet) Ambulation Assistive None Device Ambulation Ability Contact Guard/Hand Hold Balance Ability to Arise Able, uses arms to help Sitting Balance Steady, safe Standing Balance Steady, wide stance Dynamic Sitting Good Balance Ability Dynamic Standing Fair Balance Ability Transfers Bed Transfer Ability Independent Sit to Stand Bed Independent Transfer Ability Sit to Stand Chair Independent Transfer Ability Rehab PT IP prob,goals,plan Problems Date of Evaluation: 08/20/25 Rehab Potential Rehab Potential Innapropriate for Skilled Therapy Discharge Plan PT Discharge Plan Pt appears to be at her baseline with mobility and would not benefit from skilled acute care PT to address deficits. Eval Complexity Eval Charge Codes 06464 - Moderate Complexity PHYSICIAN CERTIFICATION: I certify the specified therapy services for Lissy Valdez are required, authorized, and reviewed every 30 days.
[2025-08-20 12:00] VITALS: BP 115/74; PULSE 50; PULSE 66; RESP 20; TEMP 36.8; O2SAT 100
--- NOTE | 2025-08-20 12:43 | EXP.DC.SUM ---
General Admission date:: 08/19/25 Discharge date: 08/20/25 HPI HPI HPI: This is a 50-year-old female who has a past medical history significant for thyroid nodule, rheumatoid arthritis, polycystic ovarian disease, type 2 diabetes, hyperparathyroidism, bilateral nephrolithiasis, adrenal mass, ovarian cyst, and HFpEF who presents with a chief complaint of chest pain. Due to patient's symptoms, she presented to the emergency room for evaluation. While in the emergency room, EKG revealed a sinus rhythm, QTc of 434, and normal axis-there was no evidence of any activity consistent with STEMI. Patient's troponin x 2 were within normal limits. Patient's chest x-ray was negative for any acute cardiopulmonary process. She continued to have ongoing chest pain, so she is being admitted for further management. During my evaluation of the patient, patient states her chest pain started at around 10:00 this morning. She states it is ongoing and it is located in the center of her chest with radiation to the left chest to the left arm/to the back in between the shoulders. She reports her chest pain is 7-out of 10 and is worse with activity. She also reports there is some chills and associated shortness of breath but no diaphoresis. Patient recently underwent left heart cath in 2021 and unfortunately those results are unavailable; however, she recent late had a cardiac MRI performed in 2022 that showed no occlusion in any of her coronary arteries. She currently denies any lightheadedness, dizziness, fever, rigors, PND, nausea, vomiting, dyspnea, orthopnea, or diarrhea. Additional pertinent values obtained include a D-dimer of 0.55, blood glucose 119, and AST of 37. Hospital Course Hospital Course Hospital Course: 48-year-old female who presented with concern for left-sided chest pain. Admitted for observation and cardiology evaluation. History significant for reported pericarditis with normal troponin per patient's report. Also reports history of COPD. On room air throughout entire admission. 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 No concern for STEMI at this time. Serial troponins negative. Problems addressed as follows: History of reported pericarditis History of HFpEF Left sided chest pain. Serial troponins monitored and stable. Less than 0.01. EKGs with no ST elevation. CTA of the chest was obtained and found negative for PE. Was noted to have an irregular 8 x 14 mm lingular nodule. Unsure if this is larger than it was a few months prior however it is larger than lesion was at least 18 months ago. Will refer to pulmonology nodule clinic as an outpatient for further evaluation and monitoring. Patient states she is supposed to have a repeat CT with her PCP in the next 2 to 4 months who is aware of the lesion. CTA findings as follows: Enlarging irregular 8X 14mm lingular nodule abutting the left cardiac border, increased in size since the ct abdomen and pelvis 01/2024. -Of note her echo shows preliminary report with normal EF and mild RV dilation. Normal coronaries on heart cath in 2021. Cardiac MRI 01/2023: Normal EF, normal RV, no evidence of pericarditis or myocarditis, no CMR evidence of LV scar fibrosis or infarction, no significant valvular abnormalities noted. No indication for inpatient intervention. Follow-up with Dr. Ugarte in the next 2 to 4 weeks for further management. Of note, patient has a history of HFpEF with elevated LVEDP of 40 on last cath. BNP normal this admission. Will continue home regimen including Bumex 2 mg twice daily Nebivolol 5 mg daily, pravastatin 40 mg nightly Entresto twice daily, and spironolactone 50 mg daily Continue home medications for chronic conditions. Total time spent on discharge 32 minutes in counseling, documentation, chart review, and direct care with patient. Exam Data for Last 24 hours Vital signs and Labs for Last 24 Hours: Temp Pulse Resp BP Pulse Ox O2 Del Method O2 Flow Rate 98.3 F 66 20 115/74 100 Room Air 2 08/20/25 12:00 08/20/25 12:00 08/20/25 12:00 08/20/25 12:00 08/20/25 12:00 08/20/25 12:00 08/20/25 07:00 Laboratory Results - last 24 hr 08/19/25 18:00: WBC 10.3, RBC 5.08, Hgb 14.7, Hct 44.1, MCV 86.8, MCH 28.9, MCHC 33.3, RDW 12.7, Plt Count 354, MPV 10.2, Neut % (Auto) 58.9, Lymph % (Auto) 31.9, [place] % (Auto) 6.4, Eos % (Auto) 2.0, Baso % (Auto) 0.6, Neut # (Auto) 6.1, Lymph # (Auto) 3.3, [place] # (Auto) 0.7, Eos # (Auto) 0.2, Baso # (Auto) 0.1, D-Dimer 0.55 H, Sodium 136, Potassium 3.7, Chloride 99, Carbon Dioxide 30, Anion Gap 10.7, BUN 15, Creatinine 0.70, Estimated Creat Clear 78, Estimated GFR 88, Est GFR ( Amer) 106, Glucose 119 H, Calcium 9.0, Magnesium 1.6, Total Bilirubin 0.5, AST 37 H, ALT 38, Alkaline Phosphatase 76, Troponin I < 0.01, NT-Pro-B Natriuret Pep 54.9, Total Protein 7.9, Albumin 4.3, Globulin 3.6 H, Albumin/Globulin Ratio 1.2, Lipase 82 08/19/25 19:52: SARS-CoV-2 (PCR) Not detected, Influenza Type A (PCR) Not detected, Influenza Type B (PCR) Not detected, RSV (PCR) Not detected, Rhinovirus (PCR) Not detected 08/19/25 20:37: Troponin I < 0.01 08/19/25 23:56: POC Glucose 92 08/20/25 00:24: Troponin I < 0.01 08/20/25 05:56: POC Glucose 114 H 08/20/25 05:59: WBC 10.8, RBC 4.66, Hgb 13.4, Hct 40.3, MCV 86.5, MCH 28.8, MCHC 33.3, RDW 12.8, Plt Count 304, MPV 10.0, Neut % (Auto) 65.7, Lymph % (Auto) 23.3, [place] % (Auto) 7.8, Eos % (Auto) 2.5, Baso % (Auto) 0.5, Neut # (Auto) 7.1, Lymph # (Auto) 2.5, [place] # (Auto) 0.9, Eos # (Auto) 0.3, Baso # (Auto) 0.1, Sodium 134 L, Potassium 3.3 L, Chloride 100, Carbon Dioxide 30, Anion Gap 7.3, BUN 14, Creatinine 0.70, Estimated Creat Clear 74, Estimated GFR 88, Est GFR ( Amer) 106, Glucose 119 H, Calcium 8.6, Triglycerides 252 H, Cholesterol 142, LDL Cholesterol Direct 82.45 L, VLDL Cholesterol 50 H, HDL Cholesterol 21 L, Cholesterol/HDL Ratio 6.8 H I & O for Last 24 hours: Intake & Output 08/17/25 08/18/25 08/19/25 08/20/25 23:59 23:59 23:59 23:59 Intake Total 240 / 240 Output Total 0 / 0 0 / 0 Balance 0 / 240 240 / 240 Weight 120.429 kg 120.429 kg Constitutional Constitutional: no acute distress, morbidly obese, chronically ill appearing and cooperative *Routine HEENT Exam Head: Present normocephalic Eye: Present EOMI and PERRL ENT: Present mucous membranes moist *Routine Neck Exam Neck: Present supple; Absent lymphadenopathy *Routine Respiratory Exam Respiratory: Present CTA bilaterally; Absent rhonchi, wheezes or crackles *Routine Cardiovascular Exam Cardiovascular: Present RRR *Routine Abdominal Exam Abdominal: Present soft and normoactive bowel sounds; Absent tenderness *Routine Rectal Exam Patient deferred: visual exam *Routine Exam Patient deferred: external exam *Routine Extremities Exam Extremities: Absent cyanosis, clubbing or edema *Routine Skin Exam Skin: Present intact and warm; Absent rash *Routine Neurological Exam Neurological: Present alert, oriented X3 and moving all extremities; Absent altered mental status Results Data Completed and Pending Labs on day of discharge: Labs from last 24 hours 08/20/25 08/20/25 08/20/25 05:59 05:56 00:24 WBC 10.8 RBC 4.66 Hgb 13.4 Hct 40.3 MCV 86.5 MCH 28.8 MCHC 33.3 RDW 12.8 Plt Count 304 MPV 10.0 Neut % (Auto) 65.7 Lymph % (Auto) 23.3 [place] % (Auto) 7.8 Eos % (Auto) 2.5 Baso % (Auto) 0.5 Neut # (Auto) 7.1 Lymph # (Auto) 2.5 [place] # (Auto) 0.9 Eos # (Auto) 0.3 Baso # (Auto) 0.1 D-Dimer Sodium 134 L Potassium 3.3 L Chloride 100 Carbon Dioxide 30 Anion Gap 7.3 BUN 14 Creatinine 0.70 Estimated Creat Clear 74 Estimated GFR 88 Est GFR ( Amer) 106 Glucose 119 H POC Glucose 114 H Calcium 8.6 Magnesium Total Bilirubin AST ALT Alkaline Phosphatase Troponin I < 0.01 NT-Pro-B Natriuret Pep Total Protein Albumin Globulin Albumin/Globulin Ratio Triglycerides 252 H Cholesterol 142 LDL Cholesterol Direct 82.45 L VLDL Cholesterol 50 H HDL Cholesterol 21 L Cholesterol/HDL Ratio 6.8 H Lipase SARS-CoV-2 (PCR) Influenza Type A (PCR) Influenza Type B (PCR) RSV (PCR) Rhinovirus (PCR) 08/19/25 08/19/25 08/19/25 23:56 20:37 19:52 WBC RBC Hgb Hct MCV MCH MCHC RDW Plt Count MPV Neut % (Auto) Lymph % (Auto) [place] % (Auto) Eos % (Auto) Baso % (Auto) Neut # (Auto) Lymph # (Auto) [place] # (Auto) Eos # (Auto) Baso # (Auto) D-Dimer Sodium Potassium Chloride Carbon Dioxide Anion Gap BUN Creatinine Estimated Creat Clear Estimated GFR Est GFR ( Amer) Glucose POC Glucose 92 Calcium Magnesium Total Bilirubin AST ALT Alkaline Phosphatase Troponin I < 0.01 NT-Pro-B Natriuret Pep Total Protein Albumin Globulin Albumin/Globulin Ratio Triglycerides Cholesterol LDL Cholesterol Direct VLDL Cholesterol HDL Cholesterol Cholesterol/HDL Ratio Lipase SARS-CoV-2 (PCR) Not detected Influenza Type A (PCR) Not detected Influenza Type B (PCR) Not detected RSV (PCR) Not detected Rhinovirus (PCR) Not detected 08/19/25 18:00 WBC 10.3 RBC 5.08 Hgb 14.7 Hct 44.1 MCV 86.8 MCH 28.9 MCHC 33.3 RDW 12.7 Plt Count 354 MPV 10.2 Neut % (Auto) 58.9 Lymph % (Auto) 31.9 [place] % (Auto) 6.4 Eos % (Auto) 2.0 Baso % (Auto) 0.6 Neut # (Auto) 6.1 Lymph # (Auto) 3.3 [place] # (Auto) 0.7 Eos # (Auto) 0.2 Baso # (Auto) 0.1 D-Dimer 0.55 H Sodium 136 Potassium 3.7 Chloride 99 Carbon Dioxide 30 Anion Gap 10.7 BUN 15 Creatinine 0.70 Estimated Creat Clear 78 Estimated GFR 88 Est GFR ( Amer) 106 Glucose 119 H POC Glucose Calcium 9.0 Magnesium 1.6 Total Bilirubin 0.5 AST 37 H ALT 38 Alkaline Phosphatase 76 Troponin I < 0.01 NT-Pro-B Natriuret Pep 54.9 Total Protein 7.9 Albumin 4.3 Globulin 3.6 H Albumin/Globulin Ratio 1.2 Triglycerides Cholesterol LDL Cholesterol Direct VLDL Cholesterol HDL Cholesterol Cholesterol/HDL Ratio Lipase 82 SARS-CoV-2 (PCR) Influenza Type A (PCR) Influenza Type B (PCR) RSV (PCR) Rhinovirus (PCR) DS: Diagnosis Discharge Diagnosis (1) Chest pain: Status: Acute Code(s): R07.9 - Chest pain, unspecified Qualifiers: Chest pain type: unspecified Qualified Code(s): R07.9 - Chest pain, unspecified (2) (HFpEF) heart failure with preserved ejection fraction: Status: Acute Code(s): I50.30 - Unspecified diastolic (congestive) heart failure Meds Home Medications and Allergies Home Medications ?Medication ?Instructions ?Recorded ?Confirmed ?Type nebivolol 5 mg tablet 5 mg PO DAILY 12/21/21 08/20/25 History spironolactone 50 mg tablet 50 mg PO DAILY 03/30/22 08/19/25 History (Aldactone) omeprazole 20 mg capsule,delayed 20 mg PO DAILY 04/24/22 08/20/25 History release cetirizine 10 mg tablet (Zyrtec) 10 mg PO DAILYP PRN Allergy 02/06/24 08/20/25 History Symptoms cholecalciferol (vitamin D3) 125 5,000 unit PO DAILY 01/27/25 08/20/25 History mcg (5,000 unit) capsule albuterol sulfate 90 mcg/actuation 2 puff inhalation QIDP PRN 03/12/25 08/20/25 History aerosol inhaler Shortness Of Breath bumetanide 2 mg tablet 2 mg PO BIDL 03/12/25 08/20/25 History nitroglycerin 0.4 mg sublingual 0.4 mg sublingual Q5MINP PRN Chest 05/26/25 08/20/25 History tablet Pain pravastatin 40 mg tablet 40 mg PO HS #90 tabs 06/02/25 08/19/25 Rx metformin 500 mg tablet 500 mg PO BIDWMEAL 06/13/25 08/20/25 History montelukast 10 mg tablet 10 mg PO HS 06/13/25 08/20/25 History sacubitril 24 mg-valsartan 26 mg 1 tab PO BID 06/13/25 08/19/25 History tablet (Entresto) blood sugar diagnostic (FreeStyle #10 ea 07/29/25 08/20/25 History Lite Strips) blood-glucose meter (FreeStyle #1 ea 07/29/25 08/20/25 History Lite Meter kit) lancets 28 gauge (FreeStyle #100 ea 07/29/25 08/20/25 History Lancets) fluticasone fur. 100 mcg-umeclid 1 inh inhalation DAILY #60 ea 08/02/25 08/20/25 Rx 62.5 mcg-vilant 25 mcg inhalat.powder (Trelegy Ellipta) tirzepatide 10 mg/0.5 mL 10 mg (0.5 mL) SQ WEEKLY #2 mL 08/02/25 08/19/25 Rx subcutaneous pen injector (Fadi) tramadol 50 mg tablet 50 mg PO Q6HP PRN Moderate Pain 08/02/25 08/19/25 Rx (Scale Score 5-6) #120 tabs linaclotide 145 mcg capsule 145 mcg PO DAILY #90 caps 08/16/25 08/20/25 Rx (Linzess) promethazine 12.5 mg tablet 12.5 mg PO Q6HP PRN Nausea And 08/19/25 08/20/25 History Vomiting oxycodone 5 mg tablet 5 mg PO Q8HP PRN Moderate Pain 08/20/25 08/20/25 History (Scale Score 5-6) tizanidine 2 mg tablet 2 mg PO Q8HP PRN muscle spasticity 08/20/25 08/20/25 History New Prescriptions to Start Prescriptions: Allergies Allergy/AdvReac Type Severity Reaction Status Date / Time aspirin Allergy Severe S-DIFF. Verified 08/19/25 15:11 BREATHING bee venom protein (honey bee) Allergy Severe Anaphylaxis Verified 08/19/25 15:11 Bleach (Sodium Hypochlorite) Allergy Severe diff. Verified 08/19/25 15:11 breathing, dizzy amoxicillin (From Augmentin) Allergy Mild Unknown Verified 08/19/25 15:11 allergy reaction clavulanic acid (From Allergy Mild Unknown Verified 08/19/25 15:11 Augmentin) allergy reaction fluconazole (From Diflucan) Allergy Mild Unknown Verified 08/19/25 15:11 allergy reaction levofloxacin (From Levaquin) Allergy Difficulty Verified 08/19/25 15:11 Breathing pneumococcal vaccine Allergy Unknown Verified 08/19/25 15:11 allergy reaction sulfamethoxazole (From Allergy Unknown Verified 08/19/25 15:11 Bactrim) allergy reaction trimethoprim (From Bactrim) Allergy Unknown Verified 08/19/25 15:11 allergy reaction sucralose (From SUCRALOSE AdvReac Severe breathing Verified 08/19/25 15:11 (FOOD/DRUG)) problems Discharge Plan Disposition Patient Disposition: Home, Self-Care Condition: Good Follow up Plan Follow up with: Aria Thacker APRN [Nurse Practitioner, Cardiology] - 08/26/25 1:45 pm Juarez Grififn MD [Primary Care Provider, Medical] - 08/25/25 2:00 pm Kylie Harmon MD [Physician, Pulmonology] - 09/20/25 11:40 am Referral Note: lung nodule clinic Prescriptions/Medication Reconciliation: Continued spironolactone [Aldactone] 50 mg tablet 50 mg PO DAILY (DME) FreeStyle Lite Strips Strip See Rx Instructions .ROUTE .MEDSUPPLY Qty: 10 Patient Comments: USE DIRECTED DAILY Rx Instructions: As directed (DME) blood-glucose meter [FreeStyle Lite Meter] Kit See Rx Instructions .ROUTE .MEDSUPPLY Qty: 1 Patient Comments: USE DIRECTED TO TEST BLOOD SUGAR Rx Instructions: As directed (DME) lancets [FreeStyle Lancets] 28 gauge misc See Rx Instructions .ROUTE .MEDSUPPLY Qty: 100 Patient Comments: USE DIRECTED TO test blood sugar DAILY Rx Instructions: uses 3 daily omeprazole 20 mg capsule,delayed release(DR/EC) 20 mg PO DAILY nitroglycerin 0.4 mg tablet, sublingual 0.4 mg sublingual Q5MINP PRN (Reason: Chest Pain) Patient Comments: DISSOLVE 1 TABLET UNDER THE TONGUE EVERY 5 MINUTES NEEDED FOR CHEST PAIN. DO NOT EXCEED A TOTAL OF 3 DOSES IN 15 MINUTES. IF NO RELIEF AFTER 3 DOSES CALL 911/GO TO ER Linzess 145 mcg capsule 145 mcg PO DAILY Qty: 90 1RF pravastatin 40 mg tablet 40 mg PO HS Qty: 90 1RF Mounjaro 10 mg/0.5 mL pen injector 10 mg SQ WEEKLY Qty: 2 1RF Trelegy Ellipta 100-62.5-25 mcg blister with device 1 inh inhalation DAILY Qty: 60 5RF tramadol 50 mg tablet 50 mg PO Q6HP MDD 100 mg per md PRN (Reason: Moderate Pain (Scale Score 5-6)) Qty: 120 0RF cholecalciferol (vitamin D3) 125 mcg (5,000 unit) capsule 5,000 unit PO DAILY bumetanide 2 mg tablet 2 mg PO BIDL albuterol sulfate 90 mcg/actuation Hfa Aerosol Inhaler 2 puff INHALATION QIDP PRN (Reason: Shortness Of Breath) promethazine 12.5 mg tablet 12.5 mg PO Q6HP PRN (Reason: Nausea And Vomiting) tizanidine 2 mg tablet 2 mg PO Q8HP PRN (Reason: muscle spasticity) oxycodone 5 mg tablet 5 mg PO Q8HP PRN (Reason: Moderate Pain (Scale Score 5-6)) nebivolol 5 MG tablet 5 mg PO DAILY cetirizine [Zyrtec] 10 mg Tablet 10 mg PO DAILYP PRN (Reason: Allergy Symptoms) metformin 500 mg tablet 500 mg PO BIDWMEAL montelukast 10 mg tablet 10 mg PO HS sacubitril-valsartan [Entresto] 24-26 mg tablet 1 tab PO BID Problem Reconciliation Problems Reviewed?: Yes Patient Discharge Instructions ACTIVITY: Continue current activity DIET: continue same diet Patient Instructions: DI for Chest Pain, Stop Light Heart Failure Print Language: Telugu Providers Primary Care Provider: Juarez Griffin Admit Provider: Uli Louise Attending Provider: Uli Louise
[2025-08-20 13:05] LABS: POC Glucose,Bedside 108 gm/dL (70-110)
[2025-08-21 10:28] LABS: CEA 1.2 ng/mL (0.0-4.7)
--- NOTE | 2025-08-23 10:28 | SW/DCPLANNER ---
Spoke with patient on the phone. Patient stated that she is doing good. Patient stated that she is aware of her upcoming appointments. Patient stated that she has no concerns or questions at this time. Patient stated that she was to continue her medicine and was not prescribed any new. Dayron Brower
== END 2025-08-20 14:33 | disposition home or self-care (01) ==
LOC: ER 21:32 → 2ND 21:48
PROVIDERS: Nurse Practitioner Family; Admitting Provider Student in an Organized Health Care Education/Training Program; Emergency Provider Student in an Organized Health Care Education/Training Program; PCP Internal Medicine; Visit Provider Student in an Organized Health Care Education/Training Program
DX: I20.0 Unstable angina (principal); I50.31 Acute diastolic (congestive) heart failure; R79.89 Other specified abnormal findings of blood chemistry; E66.01 Morbid (severe) obesity due to excess calories; R91.1 Solitary pulmonary nodule; E11.9 Type 2 diabetes mellitus without complications; E21.3 Hyperparathyroidism, unspecified; J44.9 Chronic obstructive pulmonary disease, unspecified; Z82.49 Family history of ischemic heart disease and other diseases of the circulatory system; Z68.42 Body mass index [BMI] 45.0-49.9, adult; Z98.890 Other specified postprocedural states; Z86.79 Personal history of other diseases of the circulatory system; Z79.85 Long-term (current) use of injectable non-insulin antidiabetic drugs; Z79.84 Long term (current) use of oral hypoglycemic drugs; Z79.51 Long term (current) use of inhaled steroids; Z79.899 Other long term (current) drug therapy
CPT/HCPCS: 36415; 71045; 71275; 80048; 80053; 80061; 82378; 82962; 83690; 83735; 83880; 84484; 85025; 85378; 87631; 93005; 93306; 96372; 96374; 96375; 96376; 97162; 97166; 99285; G0378; J1171; J1650; J1885; Q9967